=== PATIENT | female | born 1970 | race Caucasian/White ===

== ENCOUNTER 2023-04-03 14:12 | Outpatient (OUT) | payer MEDICARE, OTHER, SELFPAY ==
--- NOTE | 2023-04-03 | US_ITS ---
The [address] [address] Patient Name: RASHID BOOTH MRN: [id number] date: 1970 Sex: F Assigned Patient Location: US Current Patient Location: US Accession/Order Number: [id number] Exam Date: 04/03/2023 14:35 Report Date: 04/03/2023 22:44 At the request of: MAUREEN MITCHELL Procedure: US venous doppler LE LT EXAMINATION: US venous doppler LE LT HISTORY: Left Leg Swelling COMPARISON: No relevant comparison available. FINDINGS: REGION: Left lower extremity THROMBI: None. COMPRESSIBILITY: Normal compressibility. FLOW: Normal waveform and antegrade flow between 5 and 20 cm/s. OTHER: None. US/US venous doppler LE LT IMPRESSION: 1. No deep vein thrombus within the left lower extremity. Electronically authenticated by: ALESIA GUERRA Date: 04/03/2023 22:44
--- NOTE | 2023-04-03 14:29 | CT_ITS ---
[address] [address] Patient Name: ARSHID BOOTH MRN: [id number] date: 1970 Sex: F Assigned Patient Location: US Current Patient Location: US Accession/Order Number: [id number] Exam Date: 04/03/2023 15:30 Report Date: 04/03/2023 16:21 At the request of: MAUREEN MITCHELL Procedure: CT angio chest CT angio chest, 04/03/2023 12:30 PM PST INDICATION: Acute Dyspnea R06.00, Left Leg Swelling M79.89 COMPARISON: None. TECHNIQUE: Iodinated contrast was administered intravenously by rapid injection, with further multislice axial sections acquired in the pulmonary arterial phase from the thoracic inlet to the upper abdomen. Coronal maximal intensity projection images were created for comprehensive analysis and diagnosis of the regional circulation. Dose reduction techniques were achieved by using automated exposure control and/or adjustment of mA and/or kV according to patient size and/or use of iterative reconstruction technique. FINDINGS: Lungs/Pleura: No visible pulmonary disease or effusion. Vasculature: No visible pulmonary arterial thrombus or attenuation. Peyton: No mass or adenopathy. Mediastinum: No mass or adenopathy. Cardiac: Normal. No enlargement, pericardial thickening, or significant calcification. Aorta: Normal. No aneurysm or dissection. Chest Wall: No mass or axillary adenopathy Limited Abd: Hepatic steatosis. Bones: Normal. No bony lesion or fracture. Other: Negative. CT/CT angio chest IMPRESSION: Hepatic steatosis. No acute intrathoracic abnormality is identified. No evidence for pulmonary embolism. Electronically authenticated by: Reggie CRABTREE Date: 04/03/2023 16:21
== END 2023-04-03 14:13 | disposition home or self-care (01) ==
LOC: US 14:19
PROVIDERS: PCP Family Medicine; Visit Provider Family Medicine
DX: M79.89 Other specified soft tissue disorders (principal); R06.00 Dyspnea, unspecified; K76.0 Fatty (change of) liver, not elsewhere classified
CPT/HCPCS: 71275; 93971; Q9967

== ENCOUNTER 2023-09-03 12:00 | Emergency (ER) | payer MEDICARE, OTHER, SELFPAY ==
[2023-09-03] VITALS (27 sets, daily range): BP systolic 109–133; BP diastolic 85–95; PULSE 101–119; TEMP 36.9; O2SAT 87–99; BMI 29.8
--- NOTE | 2023-09-03 12:52 | ECG_ITS ---
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
--- NOTE | 2023-09-03 13:05 | CT_ITS ---
The [address] [address] Patient Name: RASHID BOOTH MRN: [id number] date: 1970 Sex: F Assigned Patient Location: ER Current Patient Location: ED.MAIN Accession/Order Number: [id number] Exam Date: 09/03/2023 13:50 Report Date: 09/03/2023 14:23 At the request of: JOSIAH MONZON Procedure: CT angio chest EXAM: CT angio chest HISTORY: rule out PE, left rib pain COMPARISON: CT chest 04/03/2023. TECHNIQUE: Following intravenous administration of 100 cc of Visipaque 270, axial soft tissue and lung windows of the chest were performed with coronal and sagittal reformats. 3-D MIPS reformats were created and reviewed. CT dose reduction technique was used including Automated Exposure Control. Findings: The heart is not significantly enlarged. No pericardial effusion. The thoracic aorta is normal caliber. There is adequate opacification of the pulmonary arteries. No evidence of pulmonary embolism. The central airways are patent. No pneumothorax. No pleural effusion. No focal consolidation. Minimal bilateral dependent atelectasis. No enlarged mediastinal, hilar, axillary or supraclavicular lymph nodes. Fatty infiltration of the liver. Partially visualized gallbladder is dilated. Postsurgical changes consistent with gastric bypass. No aggressive sclerotic or lytic osseous lesions. Impression 1. No pulmonary embolism. 2. Fatty liver. 3. Partially visualized dilated gallbladder. If there is clinical concern for an acute gallbladder abnormality, suggest right upper quadrant ultrasound for further evaluation. Electronically authenticated by: DARLENE SANCHES Date: 09/03/2023 14:23
[2023-09-03 13:06] LABS: Basophils Percent Auto 0.4 % (0.2-2.0); Eosinophils Percent Auto 0.4 % (0.9-7.0); Hemoglobin 12.3 g/dL (12.0-16.0); Immature Granulocytes Abs Auto 0.04 10^3/uL (0.00-0.03); Immature Granulocytes Pct Auto 0.4 % (0.0-0.5); Lymphocytes Absolute Auto 1.7 10^3/uL (1.2-3.8); Lymphocytes Percent Auto 17.4 % (20.5-60.0); Mean Corpuscular HGB Conc 34.2 g/dL (29.9-35.2); Mean Corpuscular Hemoglobin 36.4 pg (26.7-34.0); Mean Corpuscular Volume 106.5 fL (81.0-99.0); Mean Platelet Volume 9.8 fL (9.5-13.5); Monocytes Absolute Auto 0.8 10^3/uL (0.3-0.8); Neutrophils Absolute Auto 7.3 10^3/uL (1.4-6.5); Neutrophils Percent Auto 73.4 % (43.0-75.0); Platelet Count 312 10^3/uL (150-450); Red Blood Count 3.38 10^6/uL (4.20-5.40); Red Cell Distribution Width 16.8 % (11.0-15.0); White Blood Count 9.9 10^3/uL (4.0-11.0)
--- NOTE | 2023-09-03 13:07 | ED_ITS ---
HPI HPI - General Adult General Chief complaint: Fall Stated complaint: FALL Time Seen by Provider: 09/03/23 12:52 Source: patient Mode of arrival: walk-in Limitations: no limitations History of Present Illness HPI narrative: Patient is a 52-year-old female who is presenting to the Emergency Room after a fall earlier this morning. Patient has femoral, hitting the left side of her. Patient is a hard object at home. Patient is at bedside. Patient is here because of left rib pain. Patient looks significantly older than stated age. 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 Patient did not hit her head. No blood thinners. No headache or neck pain. She has left lower anterior rib pain. Patient was slightly hypoxic when she arrived in the mid 80s. Patient takes Large amount of pain medication and Xanax daily to help with chronic pain. Patient has chronic lower back pain and left foot pain. Patient did have surgeries in the past to help make her chronic pain better, but actually made her pain worse.Patient is in chronic pain management. Patient is very pleasant. at bedside. Patient is also getting set up with hospice care on September 18 as well secondary to inability to function at home. Patient is in bed a lot of time secondary to her chronic pain. No abdominal pain, nausea, vomiting, or any other acute complaints. . Patient says that she took one of her pain pills one hour prior to my initial HPI, physical exam and placing orders on the patient. All systems are negative except as noted/marked. All systems reviewed and otherwise negative. Nurses note and vital signs reviewed and patient is Hypoxic in the mid 80s on room air initially. General: The patient appears Significantly older than stated age, mild distress secondary to pain. Patient is resting uncomfortably on cart. Patient is not toxic, lethargic, or listless Skin: Warm, dry, no pallor noted. There is no rash noted. No petechiae, purpura. Patient has chronic skin changes to her lower back from chronic ICU's, no acute signs of infection, no acute 1st or second-degree burn. Head: Normocephalic, atraumatic Eye: Normal conjunctiva, no drainage, EOMI. PERRL Ears, Nose, Mouth, and Throat: oral mucosa is moist. Nares patent. Mouth without vesicles. Cardiovascular: Regular Rate and Rhythm, no murmur, gallop, rub. Patient has moderate tenderness to palpation to left lower anterior and left lower anterior/lateral chest wall, no ecchymosis noted. No crepitus. Respiratory: Patient is in no distress, no accessory muscle use, lungs are clear to auscultation, no wheezing, rales or rhonchi. Equal breath sounds bilateral. Back: non-tender, no CVA tenderness bilaterally to percussion. No CT LS midline pain GI: Soft, no tenderness to palpation, no masses appreciated. No rebound, guarding, or rigidity noted. No distention Musculoskeletal: Patient has full range of motion of all of the extremities, no motor, sensory, or focal neurological deficits Neurological: A&O x4, normal speech Psychiatric: Cooperative Related Data Home Medications ?Medication ?Instructions ?Recorded ?Confirmed alprazolam 0.5 mg tablet 0.5 mg PO Q6H 09/03/23 09/03/23 amitriptyline 100 mg tablet 100 mg PO .hs 09/03/23 09/03/23 atenolol 100 mg tablet 100 mg PO DAILY 09/03/23 09/03/23 cholecalciferol (vitamin D3) 1,250 50,000 unit PO .COMPLEX 09/03/23 09/03/23 mcg (50,000 unit) capsule eletriptan 40 mg tablet 40 mg PO PRN migraine headache 09/03/23 oxycodone 30 mg tablet 30 mg PO Q4H 09/03/23 09/03/23 pregabalin 200 mg capsule 200 mg PO TID 09/03/23 09/03/23 sertraline 100 mg tablet 200 mg PO DAILY 09/03/23 09/03/23 Allergies Allergy/AdvReac Type Severity Reaction Status Date / Time NSAIDS (Non-Steroidal Allergy Intermediate Verified 09/03/23 12:17 Anti-Inflamma Opioid HPI Opioid Management Most Recent Opioid Data: No Data to Display Exam Constitutional Vital Signs, click to edit/add: Last Vital Signs Temp 98.5 F 09/03/23 12:23 Pulse 101 H 09/03/23 15:50 Resp 15 09/03/23 12:23 BP 130/90 09/03/23 15:30 Pulse Ox 96 09/03/23 15:50 O2 Del Method Nasal Cannula 09/03/23 14:42 O2 Flow Rate 2 09/03/23 14:42 Course Vital Signs Vital signs: Vital Signs Pulse Rate 117 H 09/03/23 12:14 Blood Pressure 129/92 H 09/03/23 12:14 Pulse Oximetry 94 L 09/03/23 12:14 Temperature 98.5 F 09/03/23 12:23 Pulse Rate 101 H 09/03/23 15:50 Respiratory Rate 15 09/03/23 12:23 Blood Pressure 130/90 09/03/23 15:30 Pulse Oximetry 96 09/03/23 15:50 Oxygen Delivery Method Nasal Cannula 09/03/23 14:42 Oxygen Delivery Flow Rate 2 09/03/23 14:42 Medical Decision Making MDM Narrative Medical decision making narrative: Patient had a CTA of her chest secondary to not moving around much at home a chronic baseline, concern for PE. Patient has no obvious signs of rib fracture, pulmonary contusion, or pulmonary embolism. Patient /pain pillTold me sHe took one of her pain medications approximately one hour prior to arrival, she initially told the nurse Brian MORENO she took her last dose of pain medication at 6:30 AM.. Patient told me that she took her last pain pill one hour prior to my HPI physical exam ordered. Please see Nayeli social services technician consultation note. She is very instrumental in helping the patient and family. Patient will have a positive care consultation on September 11. Dav is also helping arrange home health care for the patient as well. Patient's is very active, physically fit, and works, and cannot be home with the patient often. Patient and eventually patient's mother was at bedside as well. They're very thankful for the help from Nayeli and myself. Patient has pain medication and Xanax at home to use to help with her symptoms. Patient was given OPEP. Patient felt better after 1 L of IV fluids as well. Patient has education on ice. Patient understands not to use ice over time since she does not have chronic kemp to her left lower anterior chest like she does her lower lumbar spine. Lab Data Labs: Lab Results 09/03/23 Range/Units 12:34 WBC 9.9 (4.0-11.0) 10^3/uL RBC 3.38 L (4.20-5.40) 10^6/uL Hgb 12.3 (12.0-16.0) g/dL Hct 36.0 (36.0-48.0) % MCV 106.5 H (81.0-99.0) fL MCH 36.4 H (26.7-34.0) pg MCHC 34.2 (29.9-35.2) g/dL RDW 16.8 H (11.0-15.0) % Plt Count 312 (150-450) 10^3/uL MPV 9.8 (9.5-13.5) fL Neut % (Auto) 73.4 (43.0-75.0) % Lymph % (Auto) 17.4 L (20.5-60.0) % [place] % (Auto) 8.0 (1.7-12.0) % Eos % (Auto) 0.4 L (0.9-7.0) % Baso % (Auto) 0.4 (0.2-2.0) % Neut # (Auto) 7.3 H (1.4-6.5) 10^3/uL Lymph # (Auto) 1.7 (1.2-3.8) 10^3/uL [place] # (Auto) 0.8 (0.3-0.8) 10^3/uL Eos # (Auto) 0.0 (0.0-0.7) 10^3/uL Baso # (Auto) 0.0 (0.0-0.1) 10^3/uL Abs Immat Gran (auto) 0.04 H (0.00-0.03) 10^3/uL Imm/Tot Granulo (auto) 0.4 (0.0-0.5) % Sodium 137 (136-145) mmol/L Potassium 3.2 L (3.5-5.1) mmol/L Chloride 98 (98-107) mmol/L Carbon Dioxide 23.8 (21.0-32.0) mmol/L Anion Gap 18.4 BUN 2.0 L (7.0-18.0) mg/dL Creatinine 1.80 H (0.55-1.02) mg/dL Est GFR ( Amer) 36 L (>=60) Est GFR (Non-Af Amer) 29 L (>=60) BUN/Creatinine Ratio 1.1 Glucose 103 (74-106) mg/dL Calcium 9.3 (8.5-10.1) mg/dL Troponin I High Sens 19.5 (4.0-51.3) pg/mL Discharge Plan Discharge Stand Alone Forms: Portal Instructions Chief Complaint: Fall Clinical Impression: Rib pain on left side, Chronic pain, Fall, Dehydration Patient Disposition: Home, Self-Care Time of Disposition Decision: 15:55 Condition: Fair Prescriptions / Home Meds: No Action alprazolam 0.5 mg tablet 0.5 mg PO Q6H amitriptyline 100 mg tablet 100 mg PO .hs atenolol 100 mg tablet 100 mg PO DAILY cholecalciferol (vitamin D3) 1,250 mcg (50,000 unit) capsule 50,000 unit PO .COMPLEX Rx Instructions: 50,000 units orally twice a week; eletriptan 40 mg tablet 40 mg PO PRN (Reason: migraine headache) oxycodone 30 mg tablet 30 mg PO Q4H pregabalin 200 mg capsule 200 mg PO TID sertraline 100 mg tablet 200 mg PO DAILY Print Language: Telugu Instructions: How to Use an Incentive Spirometer (ED), Dehydration (ED), Chronic Pain (ED), Fall Prevention (ED), Rib Contusion (ED) Additional Instructions: Use ice 20 minutes on, 20 minutes off. You now have a palliative health care appointment on September 11 with Emmett duran, they will discuss the differences between palliative care and hospice. Home health care will be set up at home as well to help with care at home. Follow-up with PCP for any additional care. Referrals: Kymberly Gilmore MD [Primary Care Provider] - 1 week Discharge Date/Time: 09/03/23 16:23
[2023-09-03 13:33] LABS: Chloride 98 mmol/L (98-107); Potassium 3.2 mmol/L (3.5-5.1); Sodium 137 mmol/L (136-145)
[2023-09-03 13:34] LABS: Anion Gap 18.4; BUN Creatinine Ratio 1.1; Calcium 9.3 mg/dL (8.5-10.1); Carbon Dioxide 23.8 mmol/L (21.0-32.0); Estimated GFR (African America 36 (>=60); Estimated GFR (Non-African Ame 29 (>=60); Glucose 103 mg/dL (74-106); Troponin I High Sensitivity 19.5 pg/mL (4.0-51.3)
--- NOTE | 2023-09-03 13:54 | SWNOTE1 ---
SW received call to see pt in regards to Hospice. SW spoke to nurse and Dr. Echavarria prior to going in room. SW spoke with pt, pt's , and pt other loved one in room. Pt lives at home with her . She has chronic pain and her PCP, Dr. Gilmore, was getting her set up with palliative care? Possible apt 09/18. CEDRICK recommended we start with calling Dr. Gilmore's office to check on this. Pt and family in agreement. CEDRICK called and spoke with Aaliyah at Dr. Gilmore's office. 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 SW called Meggan Vidal's office and spoke to nurse. She stated she is set to see pt on 09/19/23 for palliative care. SW did ask if they could move appointment up. She looked at schedule and was able to move pt up to 09/12/23 @ 9:30am. Pt and family in agreement with this time. CEDRICK spoke to them about several resources. Palliative care versus hospice, private caregivers, home health, respite stay, assisted living, and custodial facility. SW did let them know for custodial for rehab pt does need 3 day inpt stay for medicare to pay and at this time SW does not think pt has medical need for inpt stay. CEDRICK recommended when at visit for palliative care to speak to them about hospice versus palliative care. CEDRICK let htem know that private caregivers, respite stay, and assisted living is all private pay or medicaid. CEDRICK then spoke to them about at least getting home health set up for in the home. CEDRICK explained that this would be therapy and a nurse to come in a few times of the week and work with her. Pt and family in agreement. CEDRICK recommended since she is in the ED, [facility] does return SW call fairly quickly and we can get it set up prior to her leaving ED. Pt's has heard of [facility] and they are all in agreement. CEDRICK faxed over face sheet, labs, vitals and any nursing notes to [facility].
--- NOTE | 2023-09-03 14:31 | SWNOTE1 ---
CEDRICK called [facility] and spoke to Cheri, they are running benefits now and someone should be reaching out shortly.
--- NOTE | 2023-09-03 14:57 | SWNOTE1 ---
[facility] is able to accept. CEDRICK provided pt and family with [facility] phone number, caregiver list, and hospice pamphlets. SW updated nurse and doctor.
[2023-09-03] MEDS: 0.9 % SODIUM CHLORIDE 1,000 ML 1000 ML IV (15:07)
== END 2023-09-03 16:23 | disposition home or self-care (01) ==
PROVIDERS: Emergency Provider Emergency Medicine; PCP Family Medicine
DX: R07.81 Pleurodynia (principal); G89.29 Other chronic pain; E86.0 Dehydration; Z91.81 History of falling; Z79.899 Other long term (current) drug therapy
CPT/HCPCS: 36415; 71275; 80048; 84484; 85025; 93005; 94667; 96360; 99285; Q9966

== ENCOUNTER 2023-11-10 09:17 | Emergency (ER) | payer MEDICARE, OTHER, SELFPAY ==
[2023-11-10] VITALS (22 sets, daily range): BP systolic 112–161; BP diastolic 80–111; PULSE 101–125; TEMP 36.5; O2SAT 86–100; BMI 26.6
--- NOTE | 2023-11-10 09:43 | ED.GENADUL1 ---
HPI HPI - General Adult General Chief complaint: GI Bleed Stated complaint: GI ISSUES/SOB,WEAKNESS Time Seen by Provider: 11/10/23 09:43 Source: patient and family Mode of arrival: Wheelchair Limitations: no limitations History of Present Illness HPI narrative: This patient is here complaining some nausea and black tarry stool. She has had previous GI bleeds previously when she bled down to hemoglobin 5.6. She says she has not had endoscopy in the last 5 or 6 years. She has had previous gastric bypass surgery. She is not taking any aspirin products, blood thinners or NSAIDs. She said her previous colonoscopies have been normal but she said 1 upper endoscopy showed small ulcers. She feels weak. She has had some falling. She is under the care of a local orthopedic surgeon for broken feet. She does not have any chest pain or shortness of breath but she has extreme fatigability at this time. A EKG on arrival showed sinus tachycardia with nonspecific T wave abnormality. There was a fair amount of artifact. Related Data Home Medications ?Medication ?Instructions ?Recorded ?Confirmed alprazolam 0.5 mg tablet 0.5 mg PO .q 4 hour 09/03/23 11/10/23 amitriptyline 100 mg tablet 100 mg PO .hs 09/03/23 11/10/23 atenolol 100 mg tablet 100 mg PO DAILY 09/03/23 11/10/23 cholecalciferol (vitamin D3) 1,250 50,000 unit PO .COMPLEX 09/03/23 11/10/23 mcg (50,000 unit) capsule eletriptan 40 mg tablet 40 mg PO Q2H PRN migraine headache 09/03/23 11/10/23 oxycodone 30 mg tablet 30 mg PO Q4H 09/03/23 11/10/23 pregabalin 200 mg capsule 200 mg PO TID 09/03/23 11/10/23 sertraline 100 mg tablet 200 mg PO DAILY 09/03/23 11/10/23 Allergies Allergy/AdvReac Type Severity Reaction Status Date / Time NSAIDS (Non-Steroidal Allergy Intermediate Verified 11/10/23 09:36 Anti-Inflamma Opioid HPI Opioid Management Most Recent Opioid Data: No Data to Display [facility] Medical History (Updated 11/10/23 @ 13:04 by Chong Johnson MD) GI bleed ?K92.2 - Gastrointestinal hemorrhage, unspecified (ICD-10) Surgical History (Updated 11/10/23 @ 09:59 by Gabrielle Donaldson RN) Status post abdominoplasty ?Z98.890 - Other specified postprocedural states (ICD-10) Status post abdominoplasty ?Z98.890 - Other specified postprocedural states (ICD-10) H/O hysterectomy with oophorectomy H/O: hysterectomy ?Z90.710 - Acquired absence of both cervix and uterus (ICD-10) Gastric bypass status for obesity ?Z98.84 - Bariatric surgery status (ICD-10) Exam Narrative Exam Narrative: Armida is well-known to myself from previous work here in this department. She appears somewhat pale. She has a good sense of humor she does not appear toxic or critically ill. Vital signs are noted she does have mild tachycardia. She is afebrile and there is no hypoxemia on pulse oximetry. She is awake alert cognition mentation short and long-term memory are excellent. Examination her lungs show her lungs to be clear. Heart sounds are normal other than tachycardia. Do not hear murmur. Abdomen she has no abdominal discomfort. We did a rectal examination there is no external hemorrhoids, no bleeding and mucosal secretions were clear. It was sent for Hemoccult. She does have some ankle swelling bilaterally but no evidence of phlebitis or DVT of the lower legs. Neurological cognition and mentation are normal. Constitutional Vital Signs, click to edit/add: Last Vital Signs Temp 97.7 F 11/10/23 09:29 Pulse 116 H 11/10/23 09:29 Resp 20 11/10/23 09:29 BP 112/80 11/10/23 09:29 Pulse Ox 95 11/10/23 09:29 O2 Del Method Room Air 11/10/23 09:29 Course Vital Signs Vital signs: Vital Signs Temperature 97.7 F 11/10/23 09:29 Pulse Rate 116 H 11/10/23 09:29 Respiratory Rate 20 11/10/23 09:29 Blood Pressure 112/80 11/10/23 09:29 Pulse Oximetry 95 11/10/23 09:29 Oxygen Delivery Method Room Air 11/10/23 09:29 Temperature 97.7 F 11/10/23 09:29 Pulse Rate 116 H 11/10/23 09:29 Respiratory Rate 20 11/10/23 09:29 Blood Pressure 112/80 11/10/23 09:29 Pulse Oximetry 95 11/10/23 09:29 Oxygen Delivery Method Room Air 11/10/23 09:29 Medical Decision Making MDM Narrative Medical decision making narrative: Patient's laboratory testing shows mild increase in alkaline phosphatase and she is concerned about having abdominal cancer. I cannot see that she has had recent CT imaging recently. Her stool occult blood is negative. Her hemoglobin is stable. Potassium is low 3.0. Her CT scan was read and does not show any acute findings but it is consistent with there is some gastroenteritis. Other findings were chronic and unchanged and nothing suggestive of any type of metastatic or primary malignancy. This information was discussed in detail with her and her son. At this time we will discharge her she was given a liter of fluids and her heart rate slowed nicely. She will be placed on potassium she is to follow-up with primary care doctor Discharge Plan Discharge Stand Alone Forms: Portal Instructions Chief Complaint: GI Bleed Clinical Impression: Acute hypokalemia, Volume depletion Patient Disposition: Home, Self-Care Time of Disposition Decision: 13:04 Prescriptions / Home Meds: No Action alprazolam 0.5 mg tablet 0.5 mg PO .q 4 hour amitriptyline 100 mg tablet 100 mg PO .hs atenolol 100 mg tablet 100 mg PO DAILY Hold Instructions: not taking cholecalciferol (vitamin D3) 1,250 mcg (50,000 unit) capsule 50,000 unit PO .COMPLEX Rx Instructions: 50,000 units orally twice a week; eletriptan 40 mg tablet 40 mg PO Q2H PRN (Reason: migraine headache) oxycodone 30 mg tablet 30 mg PO Q4H pregabalin 200 mg capsule 200 mg PO TID sertraline 100 mg tablet 200 mg PO DAILY Print Language: Nauruan Additional Instructions: Take potassium tablets and follow-up with your primary care doctor for repeat lab as needed Referrals: Kymberly Gilmore MD [Primary Care Provider] - 1 week
--- NOTE | 2023-11-10 09:55 | ECG_ITS ---
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
[2023-11-10 10:05] LABS: Basophils Percent Auto 0.5 % (0.2-2.0); Eosinophils Percent Auto 0.1 % (0.9-7.0); Hematocrit 38.3 % (36.0-48.0); Hemoglobin 13.2 g/dL (12.0-16.0); Immature Granulocytes Abs Auto 0.03 10^3/uL (0.00-0.03); Immature Granulocytes Pct Auto 0.4 % (0.0-0.5); Lymphocytes Absolute Auto 1.3 10^3/uL (1.2-3.8); Lymphocytes Percent Auto 17.4 % (20.5-60.0); Mean Corpuscular HGB Conc 34.5 g/dL (29.9-35.2); Mean Corpuscular Hemoglobin 38.2 pg (26.7-34.0); Mean Corpuscular Volume 110.7 fL (81.0-99.0); Mean Platelet Volume 9.8 fL (9.5-13.5); Monocytes Absolute Auto 0.5 10^3/uL (0.3-0.8); Monocytes Percent Auto 6.7 % (1.7-12.0); Neutrophils Absolute Auto 5.5 10^3/uL (1.4-6.5); Neutrophils Percent Auto 74.9 % (43.0-75.0); Platelet Count 305 10^3/uL (150-450); Red Blood Count 3.46 10^6/uL (4.20-5.40); Red Cell Distribution Width 12.7 % (11.0-15.0); White Blood Count 7.3 10^3/uL (4.0-11.0)
--- NOTE | 2023-11-10 10:05 | XR_ITS ---
The [address] [address] Patient Name: RASHID BOOTH MRN: [id number] date: 1970 Sex: F Assigned Patient Location: ER Current Patient Location: ER Accession/Order Number: [id number] Exam Date: 11/10/2023 10:00 Report Date: 11/10/2023 10:26 At the request of: RILEY GUTIERREZ Procedure: XR chest 1V EXAMINATION: XR chest 1V HISTORY: Chest pain , weakness, tachycardia, gastrointestinal bleeding COMPARISON: No relevant comparison available. FINDINGS: LUNGS: No significant pulmonary parenchymal abnormalities. VASCULATURE: No increased pulmonary vasculature. PLEURA: No pneumothorax, effusion, or pleural thickening. CARDIAC: No cardiomegaly or cardiac silhouette abnormality. MEDIASTINUM: No visible mass or adenopathy. BONES: No fracture or visible bone lesion. OTHER: Negative. XR/XR chest 1V IMPRESSION: 1. No acute or suspicious cardiopulmonary process. Electronically authenticated by: ALESIA GUERRA Date: 11/10/2023 10:26
[2023-11-10 10:21] LABS: Prothrombin Time 9.7 sec (9.0-11.6)
[2023-11-10 10:23] LABS: Anion Gap 13.3; Carbon Dioxide 25.7 mmol/L (21.0-32.0); Chloride 97 mmol/L (98-107); Glucose 113 mg/dL (74-106); Sodium 133 mmol/L (136-145)
[2023-11-10 10:24] LABS: Alanine Aminotransferase 23 U/L (14-59); Albumin Globulin Ratio 0.8; Alkaline Phosphatase 232 U/L (46-116); Aspartate Amino Transferase 82 U/L (15-37); Bilirubin Total 0.6 mg/dL (0.2-1.0); Calcium 9.3 mg/dL (8.5-10.1); Estimated GFR (African America >60 (>=60); Estimated GFR (Non-African Ame 58 (>=60); Globulin 3.6 g/dL; INR <0.93; Total Protein 6.6 g/dL (6.4-8.2)
[2023-11-10 10:32] LABS: Troponin I High Sensitivity 11.2 pg/mL (4.0-51.3)
[2023-11-10 10:44] LABS: Internal Control Within Normal Limits; Occult Blood Negative
[2023-11-10] MEDS: POTASSIUM CHLORIDE 10 MEQ ER TABLET 20 MEQ PO (11:16)
[2023-11-10] MEDS: 0.9 % SODIUM CHLORIDE 1,000 ML 1000 ML IV (11:20)
--- NOTE | 2023-11-10 11:48 | CT_ITS ---
The [address] [address] Patient Name: RASHID BOOTH MRN: [id number] date: 1970 Sex: F Assigned Patient Location: ER Current Patient Location: ER Accession/Order Number: [id number] Exam Date: 11/10/2023 11:38 Report Date: 11/10/2023 12:46 At the request of: RILEY GUTIERREZ Procedure: CT abdomen pelvis w con EXAM: CT abdomen pelvis w con HISTORY: Abdominal pain/elevated alk phos COMPARISON: CT abdomen and CT pelvis studies dated 11/03/2021 TECHNIQUE: CT abdomen and CT pelvis studies were performed with the use of intravenous contrast. Multiple axial images were obtained. Reformatted coronal and sagittal images were obtained and reviewed. FINDINGS: Abdomen: Visualized lower lung call appear grossly unremarkable. Healing or healed undisplaced rib fractures are noted on the left, correlate likely. Views of the liver demonstrate 2 areas of decreased attenuation in the medial segment of the left lobe most likely representing cysts and/or hemangiomas measuring up to 1.7 cm. Other possibilities would be less likely. Mild fatty infiltration of the liver. No obvious splenic mass. Likely a gallstone in the gallbladder mildly increased in size since prior exam, no obvious gallbladder wall thickening or pericholecystic fluid. Gallbladder is moderately distended without not significantly changed prior exam. Pancreas appears grossly unremarkable. Mild soft tissue prominence of the left adrenal gland similar to prior study most like representing an adenoma measuring approximately 1 cm. Post gastric bypass changes appear similar to the prior exam. Mild wall thickening of the stomach which is nonspecific, correlate for gastritis. No evidence of gastric obstruction. Mildly dilated fluid-filled small bowel loops which are nonspecific, correlate for mild gastroenteritis. No obvious bowel obstruction. Atherosclerotic calcifications within portions of the abdominal aorta. No evidence of aneurysm. No evidence of adenopathy in the retroperitoneum. No obvious renal mass or obstructive uropathy. Pelvis: Mild to moderately distended bladder without obvious mass or significant wall thickening. Patient status post hysterectomy. No obvious adnexal mass. Perirectal fat planes appear grossly intact. Bowel loops appear grossly unremarkable. Atherosclerotic calcification within portions of the iliofemoral arteries. No evidence of aneurysm. No evidence of adenopathy. The appendix is not definitely visualized, correlate for prior appendectomy. No evidence of appendicitis. Bwas-bb-[id number] degenerative changes in the visualized lower dorsal spine and the lumbar spine with slight convexity of the upper lumbar spine to the left and lower lumbar spine to the right. CT/CT abdomen pelvis w con IMPRESSION: CT abdomen and CT pelvis studies demonstrate findings which can be correlated for mild gastroenteritis as described. No obvious bowel obstruction. Likely cysts and/or hemangiomas in the liver as described. Likely gallstone the gallbladder without wall thickening. Gallbladder is distended however this appears similar to prior study. No obvious cholecystitis suggested. Likely left adrenal gland adenoma similar to the prior study. Electronically authenticated by: CHLOE CLEMENTS Date: 11/10/2023 12:46
== END 2023-11-10 14:00 | disposition home or self-care (01) ==
PROVIDERS: Emergency Provider Emergency Medicine Emergency Medical Services; PCP Family Medicine
DX: E86.9 Volume depletion, unspecified (principal); E87.6 Hypokalemia; Z98.84 Bariatric surgery status
CPT/HCPCS: 36415; 71045; 74177; 80053; 83690; 84484; 85025; 85610; 86850; 86900; 86901; 93005; 96360; 96361; 99285; G0328; Q9967

== ENCOUNTER 2023-12-28 08:42 | Inpatient (IN) | payer OTHER, MEDICARE, SELFPAY ==
[2023-12-28] VITALS (41 sets, daily range): BP systolic 101–133; BP diastolic 58–113; PULSE 90–115; TEMP 36.6–37.2; O2SAT 92–98; BMI 28.2; BMI 28.5
--- NOTE | 2023-12-28 08:45 | XR_ITS ---
The [address] [address] Patient Name: RASHID BOOTH MRN: [id number] date: 1970 Sex: F Assigned Patient Location: ER Current Patient Location: ED.MAIN Accession/Order Number: [id number] Exam Date: 12/28/2023 09:30 Report Date: 12/28/2023 10:20 At the request of: WALE PATEL Procedure: XR chest 1V PROCEDURE: XR chest 1V DATE: 12/28/2023 8:30 AM CDT COMPARISONS: 11/10/2023 CLINICAL INDICATION: 53 years Female sob FINDINGS: The cardiomediastinal silhouette and pulmonary vasculature are within normal limits. The lungs are clear. There is no evidence of pleural effusion or pneumothorax. XR/XR chest 1V IMPRESSION: Chest radiograph is within normal limits. Electronically authenticated by: ALEXSANDER FERRERA Date: 12/28/2023 10:20
--- NOTE | 2023-12-28 08:45 | ECG_ITS ---
The [facility] Test Date: 2023-12-28 Pat Name: RASHID BOOTH Department: Room: 2031 Gender: Female Right Of [address] Supervisor: : 1970 Requested By: MAUREEN MITCHELL Order Number: [id number] Reading MD: DAVID PORTER Measurements Intervals [place] Rate: 110 P: 51 SC: 158 QRS: 57 QRSD: 84 T: 150 QT: 310 QTc: 375 Interpretive Statements 1120 Sinus tachycardia [address] depression 4564 Twave abnormality, possible lateral ischemia 5211 Minimal voltage criteria for LVH, may be normal variant 9150 abnormal ECG Electronically Signed On 12-28-2023 18:30:09 EDT by DAVID PORTER
--- NOTE | 2023-12-28 08:46 | CT_ITS ---
The [address] [address] Patient Name: RASHID BOOTH MRN: [id number] date: 1970 Sex: F Assigned Patient Location: ER Current Patient Location: ER Accession/Order Number: [id number] Exam Date: 12/28/2023 09:30 Report Date: 12/28/2023 10:40 At the request of: WALE PATEL Procedure: CT abdomen pelvis w con PROCEDURE: CT abdomen pelvis w con, 12/28/2023 9:30 AM EDT CLINICAL INDICATIONS: Abdominal pain COMPARISON: CT abdomen and pelvis 11/10/2023 TECHNIQUE: Thin section axial images obtained through the abdomen and pelvis after administration of intravenous contrast. Helical acquisition technique was utilized with multiplanar reformatted images obtained. Dose reduction techniques were achieved by using automated exposure control and/or adjustment of mA and/or kV according to patient size and/or use of iterative reconstruction technique. FINDINGS: Acute lower lung pathology is not demonstrated. 1.0 cm gallbladder polyp or calculus is present near the fundus similar to previous exam. Gallbladder is distended, 5 cm transversely with borderline wall thickening. Common bile duct dilated at 0.9 cm to the ampullary level. Mild central intrahepatic bile duct dilatation seen. Similar changes are present on prior exam. Normal right adrenal gland. Stable 1.4 cm left adrenal nodule. Normal spleen. Mild calcified atheromatous plaque, normal size aorta and iliac vasculature is seen. Inferior vena cava is somewhat decompressed. Mild lobular renal contour. Focal abnormality, nephrolithiasis, urinary tract calculus, obstructive uropathy are not cysts noted. There is been a Linsey-en-Y gastric bypass. There is apparent wall thickening of the body and antrum of the bypassed stomach. There is fluid within. Atrophic pancreas is seen. CT PELVIS: Urinary bladder is decompressed. Uterus is surgically absent. Vaginal cuff region is symmetric. Adnexal pathology is not seen. Normal ovarian tissue is not seen with confidence. A 3.5 cm the sigmoid diverticulum is seen. There is liquid stool within nondistended colon. Colonic redundancy is present. Bowel pattern is likely nonobstructive. Normal appendix is not seen. Secondary signs of acute appendicitis are not demonstrated. No pathologic lymphadenopathy. Free fluid, abscess, ectopic gas are not demonstrated. Stable compression deformity anterior T11 vertebral segment is seen. Dextroconvex lumbar scoliosis is seen. Acute osseous pathology is not demonstrated. Lumbosacral degenerative changes noted. CT/CT abdomen pelvis w con IMPRESSION: 1. Gallbladder distention with 1.0 cm gallbladder fundal gallstone or gallbladder polyp similar to previous exam. Common bile duct dilated up to 0.9 cm with intrahepatic bile duct prominence. Similar to previous exam. Magnetic resonance cholangiopancreatography may be helpful in further assessment. 2. Stable left adrenal gland, adenoma favored 3. Linsey-en-Y gastric bypass. There is fluid in the bypassed stomach. There is apparent thickening of the body and antrum of the stomach. Accentuated by incomplete distention. Gastritis, peptic ulcer disease considered in the appropriate clinical setting. No ectopic gas or significant inflammatory changes evident. 4. Sigmoid diverticula, liquid stool within nondistended redundant colon. Ileus, diarrheal illness, nonspecific enterocolitis are considered. Wall thickening, inflammatory change or obstructive pattern are not suspected. 5. Remote T11 vertebral fracture Electronically authenticated by: ETHAN BAUTISTA Date: 12/28/2023 10:40
[2023-12-28] MEDS: 0.9 % SODIUM CHLORIDE 1,000 ML 1000 ML IV ×2 (08:59→10:23)
--- NOTE | 2023-12-28 09:01 | ED_ITS ---
HPI HPI - General Adult General Chief complaint: Abdominal Pain Stated complaint: BLOOD IN STOOL, GENERAL WEAKNESS Time Seen by Provider: 12/28/23 08:45 Source: patient and family Mode of arrival: Carry Limitations: no limitations History of Present Illness HPI narrative: Patient presents to ED for GI bleed. She has a history of gastric bypass surgery and she also has a history of GI bleeding. She has had to be admitted in the past for her GI bleeding. She had upper and lower scopes in the past. She said she has been doing okay recently but last night started to get some abdominal pain and was passing dark stool but also bright red per the . She came into the ED and we were called out emergently to the triage counter And when we arrived out there she was in a wheelchair slumped backwards, pale and barely responsive. We got her back to room 5 immediately and once we laid her flat she was becoming more responsive. Blood pressure initially was 102 systolic. Heart rate was tachycardic 110s to 120. She did have pulses and was breathing and becoming more responsive once we laid her back. She does complain of some epigastric abdominal pain. She also reports a history of an abdominal aortic aneurysm that is about 4 cm in size. She denies any lower abdominal pain or back pain. At this time she is alert and oriented x 3. Labs and type and screen ordered immediately. Patient states she is O-. 2 IVs placed and she is on the monitor. Related Data Home Medications ?Medication ?Instructions ?Recorded ?Confirmed pregabalin 200 mg capsule 200 mg PO TID 09/03/23 12/28/23 sertraline 100 mg tablet 200 mg PO DAILY 09/03/23 12/28/23 amitriptyline 75 mg tablet 75 mg PO .qhs 12/28/23 12/28/23 Allergies Allergy/AdvReac Type Severity Reaction Status Date / Time NSAIDS (Non-Steroidal Allergy Intermediate Verified 11/10/23 09:36 Anti-Inflamma Opioid HPI Opioid Management Most Recent Opioid Data: Last ED Pain Assessment 12/28/23 09:04 Review of Systems ROS Status of ROS 10 or more systems reviewed and unremark able except as noted in history and below [facility] Medical History (Updated 12/28/23 @ 12:13 by Damaris Coffey DO) Peripheral neuropathy ?G62.9 - Polyneuropathy, unspecified (ICD-10) Chronic bilateral back pain ?M54.9 - Dorsalgia, unspecified (ICD-10) ?G89.29 - Other chronic pain (ICD-10) Afib ?I48.91 - Unspecified atrial fibrillation (ICD-10) Aortic aneurysm ?I71.9 - Aortic aneurysm of unspecified site, without rupture (ICD-10) GI bleed ?K92.2 - Gastrointestinal hemorrhage, unspecified (ICD-10) Surgical History (Updated 11/10/23 @ 09:59 by Gabrielle Donaldson RN) Status post abdominoplasty ?Z98.890 - Other specified postprocedural states (ICD-10) Status post abdominoplasty ?Z98.890 - Other specified postprocedural states (ICD-10) H/O hysterectomy with oophorectomy H/O: hysterectomy ?Z90.710 - Acquired absence of both cervix and uterus (ICD-10) Gastric bypass status for obesity ?Z98.84 - Bariatric surgery status (ICD-10) Family History (Updated 12/28/23 @ 11:58 by Armida Serra) Mother Family history of cancer Family history of hypertension Social History (Updated 12/28/23 @ 12:02 by Armida Serra) Within the past year, how often did you have a drink containing alcohol: 2-4 times a month Within the past year, how often did you have six or more drinks on one occasion: never Smoking status: Former smoker Non-prescribed substance use: denies use Previous occupational history: disabled Highest level of school completed/degree received: Master's degree Are you now , , , , never or living with a partner: Little interest or pleasure in doing things: more than half the days Feeling down, depressed, or hopeless: several days Feel stressed/tense/nervous/anxious/difficulty sleeping: rather much Life stressor details: medical condition Exam Narrative Exam Narrative: Time Seen: [] Vital Signs: [Per nurse's notes.] General: Lethargic, pale, decreased responsiveness initially on arrival Skin: Pale, diaphoretic Head: [Normocephalic, atraumatic.] Neck: [Supple, trachea midline.] Eye: [Pupils are equal, round and reactive to light, extraocular movements are intact, normal conjunctiva.] Ears, nose, mouth and throat: oral mucosa Dry Cardiovascular: [Tachycardia Respiratory: [Lungs are clear to auscultation, respirations are non-labored, breath sounds are equal.] Chest wall: [No tenderness, no deformity.] Gastrointestinal: [Soft, Epigastric tenderness, non distended, normal bowel sounds. No gross blood per rectum on rectal exam no hemorrhoids seen no active hemorrhage seen MSK: 5 out of 5 muscle strength x 4 extremities no calf pain or edema Lymphatics: [No lymphadenopathy.] Psychiatric: [Cooperative, appropriate mood & affect.] Neurological: [Alert and oriented to person, place, time, and situation, no focal neurological deficit observed.] Constitutional Vital Signs, click to edit/add: Last Vital Signs Temp 98.2 F 12/28/23 09:00 Pulse 102 H 12/28/23 12:00 Resp 14 12/28/23 12:00 BP 122/83 12/28/23 11:30 Pulse Ox 96 12/28/23 11:30 O2 Del Method Room Air 12/28/23 09:04 Course Vital Signs Vital signs: Vital Signs Pulse Rate 109 H 12/28/23 08:49 Respiratory Rate 28 H 12/28/23 08:49 Blood Pressure 109/58 12/28/23 08:49 Pulse Oximetry 96 12/28/23 08:49 Oxygen Delivery Method Room Air 12/28/23 08:49 Temperature 98.2 F 12/28/23 09:00 Pulse Rate 102 H 12/28/23 12:00 Respiratory Rate 14 12/28/23 12:00 Blood Pressure 122/83 12/28/23 11:30 Pulse Oximetry 96 12/28/23 11:30 Oxygen Delivery Method Room Air 12/28/23 09:04 Medical Decision Making MDM Narrative Medical decision making narrative: Patient's labs show an elevated lactate. Patient is possibly septic. She was given IV fluids and broad-spectrum IV antibiotics. Blood cultures were drawn and initially. Patient also has a low sodium at 124. No acute surgical findings on CT abdomen pelvis. She does have a large gallstone and dilated common bile duct which she has had in the past and this is not new. As of perforation on her scan. I called and spoke to Dr. Zapien who will admit the patient on telemetry for further management and monitoring of her hemoglobin. Patient and family are comfortable care plan for admission. Differential Diagnosis Differential Diagnosis: AlertGI bleed, sepsis, related abnormality, dehydration Lab Data Lab results reviewed: Yes I reviewed the patient's lab results Labs: Lab Results 12/28/23 12/28/23 12/28/23 Range/Units 08:50 08:55 11:05 WBC 10.1 (4.0-11.0) 10^3/uL RBC 3.09 L (4.20-5.40) 10^6/uL Hgb 11.0 L (12.0-16.0) g/dL Hct 32.0 L (36.0-48.0) % MCV 103.6 H (81.0-99.0) fL MCH 35.6 H (26.7-34.0) pg MCHC 34.4 (29.9-35.2) g/dL RDW 14.6 (11.0-15.0) % Plt Count 315 (150-450) 10^3/uL MPV 9.8 (9.5-13.5) fL Neut % (Auto) 63.7 (43.0-75.0) % Lymph % (Auto) 28.7 (20.5-60.0) % Russell % (Auto) 6.8 (1.7-12.0) % Eos % (Auto) 0.2 L (0.9-7.0) % Baso % (Auto) 0.3 (0.2-2.0) % Neut # (Auto) 6.4 (1.4-6.5) 10^3/uL Lymph # (Auto) 2.9 (1.2-3.8) 10^3/uL Russell # (Auto) 0.7 (0.3-0.8) 10^3/uL Eos # (Auto) 0.0 (0.0-0.7) 10^3/uL Baso # (Auto) 0.0 (0.0-0.1) 10^3/uL Abs Immat Gran (auto) 0.03 (0.00-0.03) 10^3/uL Imm/Tot Granulo (auto) 0.3 (0.0-0.5) % PT 9.6 (9.0-11.6) sec INR <0.93 Sodium 124 L* (136-145) mmol/L Potassium 4.3 (3.5-5.1) mmol/L Chloride 89 L (98-107) mmol/L Carbon Dioxide 26.6 (21.0-32.0) mmol/L Anion Gap 12.7 BUN 11.0 (7.0-18.0) mg/dL Creatinine 0.79 (0.55-1.02) mg/dL Est GFR ( Amer) >60 (>=60) Est GFR (Non-Af Amer) >60 (>=60) BUN/Creatinine Ratio 13.9 Glucose 109 H (74-106) mg/dL Lactate 5.2 H* 2.1 H (0.4-2.0) mmol/L Calcium 8.7 (8.5-10.1) mg/dL Total Bilirubin 0.5 (0.2-1.0) mg/dL AST 45 H (15-37) U/L ALT 21 (14-59) U/L Alkaline Phosphatase 219 H (46-116) U/L Troponin I High Sens <4.0 L (4.0-51.3) pg/mL Total Protein 5.6 L (6.4-8.2) g/dL Albumin 2.2 L (3.4-5.0) g/dL Globulin 3.4 g/dL Albumin/Globulin Ratio 0.6 Stool Occult Blood Positive A Blood Type O Negative Antibody Screen Negative Imaging Data CT scan - abdomen: Radiologist's impression: ITS Impressions Chest X-Ray 12/28/23 08:45 IMPRESSION: Chest radiograph is within normal limits. Electronically authenticated by: ALEXSANDER FERRERA Date: 12/28/2023 10:20 Abdomen/Pelvis CT 12/28/23 08:46 IMPRESSION: 1. Gallbladder distention with 1.0 cm gallbladder fundal gallstone or gallbladder polyp similar to previous exam. Common bile duct dilated up to 0.9 cm with intrahepatic bile duct prominence. Similar to previous exam. Magnetic resonance cholangiopancreatography may be helpful in further assessment. 2. Stable left adrenal gland, adenoma favored 3. Linsey-en-Y gastric bypass. There is fluid in the bypassed stomach. There is apparent thickening of the body and antrum of the stomach. Accentuated by incomplete distention. Gastritis, peptic ulcer disease considered in the appropriate clinical setting. No ectopic gas or significant inflammatory changes evident. 4. Sigmoid diverticula, liquid stool within nondistended redundant colon. Ileus, diarrheal illness, nonspecific enterocolitis are considered. Wall thickening, inflammatory change or obstructive pattern are not suspected. 5. Remote T11 vertebral fracture Electronically authenticated by: ETHAN BAUTISTA Date: 12/28/2023 10:40 ECG Data Attestation: I personally reviewed and interpreted this ECG as follows: Interpretation: EKG INTERPRETATION Time: []850 Rate: []110 Rhythm: _ []Sinus tachycardia ST segments: _ []No acute ST elevation or depression T waves: _ [] Ectopy: _ [] P wave/MN interval: _ [] QRS interval: _ [] QT interval: _ [] Comparison: _ [] Comparison EKG date: [] Performed by: [self] Critical Care Time Critical Care Time Critical Care Time: Yes Total Critical Care Time: 90 Attestation: Vanessa chavira called, patient was minimally responsive and near syncopal. Rushed back to ED room. Tachycardic hypotensive anemic requiring resuscitation. Discharge Plan Discharge Chief Complaint: Abdominal Pain Clinical Impression: Hyponatremia, Sepsis, Acute GI bleeding Patient Disposition: Admitted As Inpatient Time of Disposition Decision: 12:12 Condition: Fair Discharge Date/Time: 12/28/23 11:40
[2023-12-28 09:21] LABS: Basophils Percent Auto 0.3 % (0.2-2.0); Eosinophils Percent Auto 0.2 % (0.9-7.0); Immature Granulocytes Abs Auto 0.03 10^3/uL (0.00-0.03); Immature Granulocytes Pct Auto 0.3 % (0.0-0.5); Lymphocytes Absolute Auto 2.9 10^3/uL (1.2-3.8); Lymphocytes Percent Auto 28.7 % (20.5-60.0); Mean Corpuscular HGB Conc 34.4 g/dL (29.9-35.2); Mean Corpuscular Hemoglobin 35.6 pg (26.7-34.0); Mean Corpuscular Volume 103.6 fL (81.0-99.0); Mean Platelet Volume 9.8 fL (9.5-13.5); Monocytes Absolute Auto 0.7 10^3/uL (0.3-0.8); Monocytes Percent Auto 6.8 % (1.7-12.0); Neutrophils Absolute Auto 6.4 10^3/uL (1.4-6.5); Neutrophils Percent Auto 63.7 % (43.0-75.0); Platelet Count 315 10^3/uL (150-450); Red Blood Count 3.09 10^6/uL (4.20-5.40); Red Cell Distribution Width 14.6 % (11.0-15.0); White Blood Count 10.1 10^3/uL (4.0-11.0)
[2023-12-28 09:34] LABS: Prothrombin Time 9.6 sec (9.0-11.6)
[2023-12-28 09:36] LABS: INR <0.93
--- OUTSIDE RECORDS SUMMARY | 2023-12-28 09:58 | XMS_ITS ---
Patient Summarization (C-CDA 2.1 CCD) Created on: December 28, 2023 Candy Booth : 1970 Sex: Female Author Organization Sample organization Care Team Providers Care [employer] Associate Name Role Phone KENDALL MOISE Santos Unavailable Unavailable CHONG GUTIERREZ Unavailable Unavailable MAUREEN MITCHELL Unavailable Unavailable JULISA ELKINS Unavailable Unavailable HOMA JAMESON Unavailable Unavailable AVASTHI, NIA Unavailable Unavailable BLEIBEL, WISSAM Unavailable Unavailable MAUREEN MITCHELL Unavailable Unavailable REJI, PATRICK H. Unavailable Unavailable MITCHELLMAUREEN Unavailable Unavailable REJI, PATRICK H. Unavailable Unavailable REJI, PATRICK H. Unavailable Unavailable REJI, PATRICK H. Unavailable Unavailable MAUREEN MITCHELL Unavailable Unavailable MAUREEN MITCHELL Primary Care Physician [phone] MAUREEN MITCHELL Referring Unavailable MAUREEN MITCHELL Primary Care Unavailable NEW PARKINSON Attending Unavailable NEW PARKINSON Admitting Unavailable NILL, DR ALEXANDRA Attending Unavailable NILL, DR ALEXANDRA Admitting Unavailable WEST, DR TUYET Linn Consulting Unavailable MITCHELL, DR MAUREEN Morales Primary Care Unavailable NILL, DR ALEXANDRA Consulting Unavailable REINECK, DR CHONG Valverde Attending Unavailabl e REINECK, DR CHONG Valverde Consulting Unavailabl e REINECK, DR CHONG Valverde Admitting Unavailabl e MITCHELL, DR MAUREEN Morales Primary Care Unavailable MARGARET PARRA Consulting Unavailable MITCHELL, DR MAUREEN Morales Admitting Unavailable MITCHELL, DR MAUREEN Morales Attending Unavailable MITCHELL, DR MAUREEN Morales Consulting Unavailable MITCHELL, DR MAUREEN Morales Primary Care Unavailable MITCHELL, DR MAUREEN Morales Admitting Unavailable MITCHELL, DR MAUREEN Morales Attending Unavailable MITCHELL, DR MAUREEN Morales Consulting Unavailable MITCHELL, DR MAUREEN Morales Primary Care Unavailable MITCHELL, DR MAUREEN Morales Admitting Unavailable MITCHELL, DR MAUREEN Morales Attending Unavailable MITCHELL, DR MAUREEN Morales Consulting Unavailable MITCHELL, DR MAUREEN Morales Primary Care Unavailable NILL, Ibrahima Willis Attending Unavailable Maureen Mitchell Unavailable Otoniel Kelly Unavailable Maureen Mitchell MD Primary Care Provider Maureen Mitchell MD Primary Care Provider Quan Hunter MD Unavailable [phone] QUAN HUNTER Attending Unavailable MAUREEN MITCHELL Primary Care Unavailable QUAN HUNTER Attending Unavailable MAUREEN MITCHELL Primary Care Unavailable DOROTHY SANTORO Attending Unavailable DOROTHY SANTORO Referring Unavailable DOROTHY SANTORO Referring Unavailable DARLENE GONZALEZ Attending Unavailable DARLENE GONZALEZ Referring Unavailable DARLENE GONZALEZ Referring Unavailable QUAN HUNTER Referring Unavailable MAUREEN MITCHELL Primary Care Unavailable QUAN HUNTER Referring Unavailable MAUREEN MITCHELL Primary Care Unavailable Allergies Allergy Classification Reported Allergen(s) Allergy Type Date of Onset Reaction(s) Facility Acetaminophen (1 source) Acetaminophen Drug Allergy 09-22-19 24 [facility] Opioid Agonists (1 source) Codeine Drug Allergy 09-22-19 24 [facility] Sulfonamides (antibiotic) (1 source) Sulfonamides (Antibiotic) Drug Allergy 09-22-19 24 [facility] venlafaxine (1 source) venlafaxine Drug Allergy 09-22-19 24 [facility] (20 sources) Non-steroidal anti-inflammator y agent; Translations: [NSAIDs] Drug allergy Unknown (qualifier value) General Surgery Karyn (2 sources) Sulfonamides (Antibiotic); Translations: [sulfa drugs] Drug allergy Unknown (qualifier value) General Surgery Karyn (20 sources) venlafaxine; Translations: [venlafaxine] Drug Allergy 07-16-19 19 Unknown (qualifier value), Unknown General Surgery Karyn (4 sources) NSAIDs; Translations: [NSAIDS (NON-STEROIDAL ANTI-INFLAMMATOR Y DRUG)] Drug allergy (disorder) 09-06-19 16 [facility] Repository (1 source) Tylenol-Codeine #3 Drug allergy (disorder) 01-23-20 16 [facility] Repository (20 sources) Codeine; Translations: [codeine] Drug Allergy 06-09-19 14 Other [facility] Repository (20 sources) Acetaminophen / Codeine Drug Allergy Unknown [employer] Other (18 sources) Sulfonamides (Antibiotic) Drug allergy Unknown [employer] Other (16 sources) Codeine Drug Allergy Unknown [employer] Other (4 sources) patient allergy list reviewed by nurse or physicia Propensity to adverse reactions 06-09-19 14 Comment:Done [employer] Other (4 sources) Allergies Reconciled Propensity to adverse reactions Unknown [employer] Other (16 sources) Sulf-10 Drug allergy Unknown [employer] Other (8 sources) cow milk allergenic extract; Translations: [MILK] Drug Allergy 12-11-19 23 [facility] Work Phone: (6 sources) Non-steroidal anti-inflammator y agent Drug Intolerance 09-06-19 16 Other [facility] Work Phone: (2 sources) VENLAFAXINE ANALOGUES; Translations: [VENLAFAXINE ANALOGUES] Propensity to adverse reactions to drug (disorder) 10-06-19 21 [facility] Repository (5 sources) Acetaminophen Drug Allergy 08-26-19 24 [facility] (5 sources) Sulfonamides (Antibiotic) Allergy to substance 08-26-19 24 [facility] (6 sources) NSAIDS (Non-Steroidal Anti-Inflamma Allergy to substance 08-26-19 24 [facility] Encounters Encounter Date Encounter Type Care Provider Facility Start: 12-18-2023 End: 12-18-2023 [facility] Work Phone: Start: 12-18-2023 End: 12-18-2023 Patient encounter procedure [facility] Work Phone: Start: 12-11-2023 End: 12-11-2023 [facility] Work Phone: Start: 12-11-2023 End: 12-11-2023 Patient encounter procedure [facility] Work Phone: Start: 11-11-2023 End: 11-11-2023 ambulatory DARLENE GONZALEZ Not Available Start: 11-10-2023 Non-patient / Non-visit [facility] Work Phone: Start: 10-22-2023 End: 10-22-2023 ambulatory DOROTHY Montgomery APLING Not Available Start: 10-22-2023 End: 10-22-2023 ambulatory DOROTHY B APLING Not Available Start: 10-14-2023 End: 10-14-2023 ambulatory [facility] Work Phone: Start: 10-14-2023 End: 10-14-2023 Patient encounter procedure [facility] Work Phone: Start: 09-22-2023 End: 09-22-2023 ambulatory [facility] Work Phone: Start: 09-22-2023 End: 09-22-2023 Patient encounter procedure [facility] Work Phone: Start: 09-12-2023 End: 09-12-2023 ambulatory [facility] Work Phone: Start: 09-12-2023 End: 09-12-2023 Patient encounter procedure [facility] Work Phone: Start: 09-03-2023 Non-patient / Non-visit [facility] Work Phone: Start: 08-26-2023 End: 08-26-2023 ambulatory [facility] Work Phone: Start: 08-26-2023 End: 08-26-2023 Patient encounter procedure [facility] Work Phone: Start: 07-23-2023 Non-patient / Non-visit [facility] Work Phone: Start: 07-23-2023 Non-patient / Non-visit [facility] Work Phone: Start: 07-15-2023 End: 07-15-2023 Subsequent hospital visit by physician Jyotsna [id number] [facility] Comment on above: Essential hypertensi on; Shortness of breath; Angina pectoris, unstable (CMS/HCC) Start: 07-15-2023 End: 07-15-2023 ambulatory [facility] Start: 07-07-2023 End: 07-07-2023 ambulatory Maureen Mitchell Other [employer] Other Start: 07-07-2023 Telephone encounter Maureen Mitchell [facility] Start: 07-01-2023 End: 07-01-2023 ambulatory [facility] Ambulatory Start: 07-01-2023 End: 07-01-2023 Office outpatient visit 25 minutes Quan Hunter MD Work Phone: [facility] Comment on above: Angina pectoris, uns table (CMS/HCC) (Primary Dx); Dilation of aorta (CMS/HCC); Essential hypertension; Heart valve disease; Shortness of breath; Smoker; BMI 32.0-32.9,adult Start: 06-19-2023 End: 06-19-2023 ambulatory Maureen Mitchell Other [employer] Other Start: 06-19-2023 Office outpatient vi sit 15 minutes Maureen Mitchell [facility] Start: 06-13-2023 End: 06-13-2023 Subsequent hospital visit by physician Jyotsna Alcala305 Echo/Vasc 3 [facility] Comment on above: Shortness of breath; Heart valve disease; Dizziness; Dilation of aorta (CMS/HCC) Start: 06-13-2023 End: 06-13-2023 ambulatory [facility] Start: 06-02-2023 End: 06-02-2023 ambulatory Maureen Mitchell Other [employer] Other Start: 06-02-2023 Telephone encounter Maureen Mando [facility] Start: 05-27-2023 End: 05-27-2023 ambulatory QUAN Golden [facility] Ambulatory Start: 05-27-2023 End: 05-27-2023 Office outpatient new 45 minutes Quan Hunter MD Work Phone: [facility] Comment on above: Shortness of breath; Essential hypertension; BMI 32.0-32.9,adult; Smoker; Heart valve disease; Dizziness; Dilation of aorta ([facility] Start: 05-15-2023 End: 05-15-2023 ambulatory Maureen Mando Other [employer] Other Start: 05-15-2023 Telephone encounter Maureen Mando [facility] Start: 05-01-2023 End: 05-01-2023 ambulatory Maureen Mando Other [employer] Other Start: 05-01-2023 Telephone encounter Maureen Mando [facility] Start: 04-21-2023 End: 04-21-2023 ambulatory Maureen Mando Other [employer] Other Start: 04-21-2023 Telephone encounter Maureen Mando [facility] Start: 04-03-2023 (Televisit) Televisit Maureen Mando [facility] Start: 04-03-2023 End: 04-03-2023 ambulatory Maureen Mando Other [employer] Other Start: 04-03-2023 Telephone encounter Maureen Mitchell [facility] Start: 04-01-2023 End: 04-01-2023 ambulatory Maureen Mando Other [employer] Other Start: 04-01-2023 Telephone encounter Maureen Mitchell [facility] Start: 03-13-2023 End: 03-13-2023 ambulatory Maureen Mando Other [employer] Other Start: 03-13-2023 Office outpatient vi sit 25 minutes Maureen Mitchell [facility] Start: 03-13-2023 Telephone encounter Maureen Mitchell [facility] Start: 02-13-2023 End: 02-13-2023 ambulatory Maureen Mitchell Other [employer] Other Start: 02-13-2023 Telephone encounter Maureen Mitchell [facility] Start: 01-30-2023 End: 01-30-2023 ambulatory Maureen Mitchell Other [employer] Other Start: 01-30-2023 Telephone encounter Maureen Mitchell [facility] Start: 01-16-2023 End: 01-16-2023 ambulatory Maureen Mitchell Other [employer] Other Start: 01-16-2023 Telephone encounter Maureen Mitchell [facility] Start: 12-31-2022 End: 12-31-2022 ambulatory Maureen Mando Other [employer] Other Start: 12-31-2022 Telephone encounter Maureen Mitchell [facility] Start: 12-06-2022 End: 12-06-2022 ambulatory Maureen Mitchell Other [employer] Other Start: 12-06-2022 Telephone encounter Maureen Mitchell [facility] Start: 11-18-2022 End: 11-18-2022 ambulatory Maureen Mitchell Other [employer] Other Start: 11-18-2022 Telephone encounter Maureen Mitchell [facility] Start: 11-06-2022 End: 11-06-2022 ambulatory Maureen Mitchell Other [employer] Other Start: 11-06-2022 Telephone encounter Maureen Mitchell [facility] Start: 09-19-2022 End: 09-19-2022 ambulatory Maureen Mando Other [employer] Other Start: 09-19-2022 Telephone encounter Maureen Mitchell [facility] Start: 09-10-2022 End: 09-10-2022 ambulatory Maureen Mitchell Other [employer] Other Start: 09-10-2022 Telephone encounter Maureen Mitchell [facility] Start: 08-22-2022 End: 08-22-2022 ambulatory Maureen Mitchell Other [employer] Other Start: 08-22-2022 Telephone encounter Maureen Mitchell [facility] Start: 08-19-2022 End: 08-19-2022 ambulatory Otoniel Kelly Other [employer] Other Start: 08-19-2022 Telephone encounter Otoniel Kelly [facility] Start: 07-30-2022 End: 07-30-2022 ambulatory Maureen Mitchell Other [employer] Other Start: 07-30-2022 Office outpatient vi sit 25 minutes Maureen Mitchell [facility] Start: 07-25-2022 End: 07-25-2022 ambulatory Maureen Mitchell Other [employer] Other Start: 07-25-2022 Telephone encounter Maureen Mitchell [facility] Start: 07-24-2022 End: 07-24-2022 ambulatory Maureen Mitchell Other [employer] Other Start: 07-24-2022 Telephone encounter Maureen Mitchell [facility] Start: 03-29-2022 End: 03-30-[address] MAUREEN MITCHELL Facility:[facility] Start: 03-29-2022 Adult health examination Maureen Mitchell Other [employer] Other Start: 03-25-2022 End: 03-26-[address] MAUREEN MITCHELL Facility:[facility] Start: 12-28-2021 End: 01-15-2022 ambulatory MAUREEN MITCHELL Facility:[facility] Start: 12-05-2021 Encounter for genera l adult medical examination without abnormal findings DR MAUREEN MITCHELL [facility] Start: 12-04-2021 End: 12-05-[address] IBRAHIMA GONZALEZ Facility:[facility] Start: 12-04-2021 End: 12-05-2021 Encounter for general adult medical examination without abnormal findings DR MAUREEN MITCHELL Facility: Start: 11-23-2021 End: 11-24-2021 ambulatory Ibrahima GONZALEZ Facility:[facility] Start: 11-23-2021 End: 11-23-2021 Patient encounter procedure Ibrahima GONZALEZ [facility] Surgery [facility] Start: 11-09-2021 ambulatory Ibrahima GONZALEZ Facility:[facility] Start: 11-03-2021 End: 11-03-[address] CHONG GUTIERREZ Facility: Start: 02-09-2018 End: 02-09-2018 Patient encounter PATRICK Isaias MENDOZA [facility] Start: 02-06-2018 End: 02-11-2018 [facility] Start: 11-17-2017 End: 11-18-2017 Ambulatory VIPUL PARSONS [facility] Start: 10-18-2017 End: 10-20-2017 Evaluation and management of inpatient MOISE ARGUETA [facility] Immunizations Immunization Date Immunization Notes Care Provider Fa cili 05-13-2021 influenza virus vaccine, unspecified formulation Quan Hunter MD Work Phone: [facility] Work Phone: 08-22-2020 COVID-19 Vaccine Pfi zer - Documentation Purposes Only Maureen Mitchell Other [facility] 08-02-2020 COVID-19 Vaccine Pfi zer - Documentation Purposes Only Maureen Mitchell Other [facility] 04-28-2020 influenza virus vaccine, split virus (incl. purified surface antigen) Maureen Mitchell Other [employer] Other 04-28-2020 influenza virus vaccine, unspecified formulation [facility] 03-06-2016 influenza virus vaccine, split virus (incl. purified surface antigen) Maureen Mitchell Other [employer] Other 03-06-2016 influenza virus vaccine, unspecified formulation [facility] Medications Current Medications Medication Drug Class(es) Dates Sig (Normalized) Sig (Original) atenolol 100 mg oral tablet (4 sources) beta-Adrenergic Mak Start: 07-11-2023 atenolol (Tenormin) tablet 100 mg ciprofloxacin 3 mg/ml ophthalmic solution (6 sources) Quinolone Antimicrobial Start: 11-14-2022 Ciprofloxacin HCl 0.3 % 1 application into the lower eyelid of affected eye Ophthalmic tid for 5 day(s) Oct, Active Start: 11-14-2022 eletriptan 40 mg oral tablet (20 sources) Serotonin-1b and Serotonin-1d Receptor Agonist Start: 11-10-2023 Eletriptan Active 40 MG PO . NEEDED November 10, 2023 4:40pm Start: 08-19-2023 End: 11-10-2023 Eletriptan Discontinued 1 TA B PO . NEEDED August 19, 2023 12:00am November 10, 2023 4:40pm [employer] tablet Orally as needed; Note: Source Status: Taking; Refills: 1; Qty: 20 Tablet; Provider: Mando Morales Start: 04-01-2023 eletriptan (Re lpax) 40 mg tablet Take 1 tablet (40 mg) by mouth if needed for migraine. 0 04/01/2023 Active Start: 11-14-2021 take 1 tablet by mouth once Re lpax 40 mg Tab 40 mg = 1 tab(s), Oral, Once, Refills(s) 0 Start Date: 11/14/21 Status: Ordered Relpax Not-Takin g 24 hr metoprolol succinate 25 mg extended release oral tablet (12 sources) beta-Adrenergic Mak Start: 07-15-2023 End: 07-15-2023 metoprolol tartrate (Lopressor) injection 10 mg Start: 07-15-2023 End: 07-15-2023 metoprolol tartrate (Lopress or) injection 10 mg Start: 07-15-2023 End: 07-15-2023 metoprolol tartrate (Lopress or) injection 10 mg Start: 07-15-2023 End: 07-15-2023 metoprolol tartrate (Lopress or) injection 10 mg Start: 07-01-2023 End: 06-30-2024 Metoprolol Succinate Active 25 MG PO September 12, 2023 12:00am ondansetron 4 mg disintegrating oral tablet (5 sources) Serotonin-3 Receptor Antagonist Start: 10-14-2023 End: 11-10-2023 take 4 mg by mouth every twelve hours Ondansetron Active 4 MG PO Every 12 hours 30 30 November 10, 2023 3:39pm sertraline 100 mg oral tablet (20 sources) Serotonin Reuptake Inhibitor Start: 12-09-2023 take 2 tablets by mouth once daily Sertraline Active 0 .ROUTE .COMPLEX 180 December 09, 2023 3:49pm TAKE 2 TABLETS BY MOUTH ONCE DAILY Start: 08-19-2023 End: 12-09-2023 take 2 tablets by mouth once daily Sertraline (Zoloft) 100 mg tablet Discontinued 100 MG PO Daily August 19, 2023 12:00am December 09, 2023 3:49pm [employer] tablets Orally Once a day; Note: Source Status: Taking; Refills: 1; Qty: 180 Tablet; Provider: Mando Morales Start: 05-02-2023 take 1 tablet by steve once daily sertraline (Zoloft) 100 mg tablet Take 1 tablet (100 mg) by mouth once daily. 0 05/02/2023 Active Start: 11-14-2021 take 2 tablets by mo [facility] once daily Zoloft 100 mg Tab 200 mg = 2 tab(s), Oral, Daily, Refills(s) 0 Start Date: 11/14/21 Status: Ordered Zoloft Active Vitamin D (20 sources) Vitamin D Active Completed/Discontinued Medications Medication Drug Class(es) Dates Sig (Normalized) Sig (Original) ALPRAZolam 0.5 mg oral tablet (20 sources) Benzodiazepine Start: 07-23-2023 End: 12-11-2023 take 1 tablet by mouth every four hours as needed, then take 0.5 tablet by mouth every four hours as needed, then take 5 tablets by mouth once daily as needed Alprazolam Discontinued 0 PO Every 4 hours 75 15 September 22, 2023 5:30pm October 03, 2023 9:15am alternate 1 tab and 0.5 tab every 4h as needed, not to exceed 5 tabs/day Start: 07-23-2023 End: 07-23-2023 take 0.5 mg by mouth four times daily Alprazolam Discontinued 0.5 MG PO Four times daily July 23, 2023 1:00am July 23, 2023 2:08pm Start: 05-22-2023 take 1 tablet by steve th every four hours ALPRAZolam (Xanax) 0.5 mg tablet Take 1 tablet (0.5 mg) by mouth every 4 hours. 0 05/22/2023 Active Start: 05-22-2023 take 1 tablet by steve th once daily ALPRAZolam (Xanax) 0.5 mg tablet Take 1 tablet (0.5 mg) by mouth once daily. 0 05/22/2023 Active Start: 04-16-2023 take 1 tablet by steve th every four hours as needed ALPRAZolam 0.5 mg TAKE 1 TABLET BY MOUTH EVERY 4 HOURS NEEDED for 30 Mar, Active Start: 03-13-2023 take 1 tablet by steve th every four hours as needed Xanax 0.5 MG 1 tablet Orally every 4 hours, as needed for 30 days Feb, Active Start: 02-13-2023 take 1 tablet by steve th every four hours as needed Xanax 0.5 MG 1 tablet Orally every 4 hours, as needed for 30 days Jan, Active Start: 01-16-2023 take 1 tablet by steve th every four hours as needed Xanax 0.5 MG 1 tablet Orally every 4 hours, as needed for 30 days Dec, Active Start: 12-16-2022 take 1 tablet by steve th every four hours as needed Xanax 0.5 MG 1 tablet Orally every 4 hours, as needed for 30 days Nov, Active Start: 11-18-2022 take 1 tablet by steve th every four hours as needed Xanax 0.5 MG 1 tablet Orally every 4 hours, as needed for 30 days Oct, Active Start: 10-17-2022 take 1 tablet by steve th every four hours as needed Xanax 0.5 MG 1 tablet Orally every 4 hours, as needed for 30 days September, Active Start: 09-20-2022 take 1 tablet by steve th every four hours as needed Xanax 0.5 MG 1 tablet Orally every 4 hours, as needed for 30 days Aug, Active Start: 08-22-2022 take 1 tablet by steve th every four hours as needed Xanax 0.5 MG 1 tablet Orally every 4 hours, as needed for 30 days Jul, Active Start: 07-24-2022 take 1 tablet by steve th every four hours as needed Xanax 0.5 MG 1 tablet Orally every 4 hours, as needed for 30 days Jul, Active Start: 11-14-2021 take 1 tablet by steve th every four hours as needed for anxiety alprazolam 0.5 mg Tab 0.5 mg = 1 tab(s), Oral, q4hr, PRN for anxiety, Refills(s) 0 Start Date: 11/14/21 Status: Ordered amitriptyline hydrochloride 75 mg oral tablet (20 sources) Tricyclic Antidepressant Start: 10-14-2023 End: 12-11-2023 take 75 mg by mouth once daily at bedtime Amitriptyline Discontinued 75 MG PO Daily at bedtime November 10, 2023 3:38pm November 14, 2023 2:38pm Start: 09-22-2023 End: 10-14-2023 take 1 tablet by mouth at bedtime Amitriptyline Discontinued 0 .ROUTE .COMPLEX September 22, 2023 5:36pm October 14, 2023 4:47pm TAKE 1 TABLET BY MOUTH AT BEDTIME Start: 08-19-2023 End: 09-22-2023 take 1 tablet by mouth once daily at bedtime Amitriptyline Discontinued 1 TAB PO Daily at bedtime August 19, 2023 12:00am September 22, 2023 5:36pm [employer]: TAKE 1 TABLET BY MOUTH AT BEDTIME; Note: Source Status: Taking; Refills: 3; Qty: 30 Tablet; Provider: Mando Traylor ( ) Start: 11-14-2021 take 1 tablet by steve at bedtime Amitriptyline HCl 100 MG 1 tablet at bedtime Orally at bedtime for 30 days Dec, Active Start: 01-18-2021 amitriptyline (Elavil) 75 mg tablet Take 100 mg by mouth once daily at bedtime. 0 01/18/2021 Active carvedilol 3.125 mg oral tablet (15 sources) alpha-Adrenergic Mak, beta-Adrenergic Mak Start: 05-27-2023 End: 05-26-2024 take 1 tablet by mouth twice daily carvedilol (Coreg) 3.125 mg tablet Indications: Essential hypertension Take 1 tablet (3.125 mg) by mouth 2 times a day. 180 tablet 3 05/27/2023 07/01/2023 Discontinued (Therapy completed) Coreg Not-Taking cholecalciferol 1.25 mg oral capsule (20 sources) Vitamin D Start: 07-23-2023 End: 09-23-2023 take 1250 ug by mouth two times weekly Cholecalciferol (Vitamin D3) Discontinued 1250 MCG PO Twice a Week July 24, 2023 9:40am September 23, 2023 11:41am Start: 03-10-2023 take 1 capsule by mo [facility] two times weekly cholecalciferol (Vitamin D-3) 50,000 unit capsule Take 1 capsule (50,000 Units) by mouth 2 times a week. 0 03/10/2023 Active take 1 capsule by [facility] two times weekly Vitamin D3 1.25 MG (94221 UT) TAKE 1 CAPSULE BY MOUTH TWICE A WEEK for 85 Active iohexol (OMNIPaque) 350 mg iodine/mL solution 80 mL (2 sources) Start: 07-15-2023 End: 07-15-2023 iohexol (OMNIPaque) 350 mg iodine/mL solution 80 mL nitroglycerin 0.4 mg/actuat mucosal spray (2 sources) Nitrate Vasodilator Start: 07-15-2023 End: 07-15-2023 nitroglycerin (NitrolinguaL) 400 mcg/spray spray 2 spray Omeprazole (10 sources) Proton Pump Inhibitor Omeprazole Not-Taking oxyCODONE hydrochloride 20 mg oral tablet (20 sources) Opioid Agonist Start: 09-22-2023 End: 12-11-2023 take 20 mg by mouth every four hours Oxycodone Discontinued 20 MG PO Every 4 hours 90 October 14, 2023 November 06, 2023 4:36pm Start: 09-09-2023 End: 09-22-2023 take 20 mg by mouth every six hours Oxycodone Discontinued 20 MG PO Every 6 hours 28 September 15, 2023 September 22, 2023 5:33pm Start: 08-07-2023 End: 09-09-2023 take 30 mg by mouth every four hours Oxycodone Discontinued 30 MG PO Every 4 hours 180 August 07, 2023 September 09, 2023 12:17pm Start: 05-01-2023 take 1 tablet by steve th every four hours oxyCODONE (Roxicodone) 30 mg immediate release tablet Take 1 tablet (30 mg) by mouth every 4 hours. 0 05/01/2023 Active Start: 05-01-2023 take 1 tablet by steve th once daily oxyCODONE (Roxicodone) 30 mg immediate release tablet Take 1 tablet (30 mg) by mouth once daily. 0 05/01/2023 Active Start: 04-02-2023 take 1 tablet by steve th every four hours oxyCODONE HCl 30 MG 1 tablet Orally every 4 hrs for 30 days Mar, Active Start: 03-03-2023 take 1 tablet by steve th every four hours oxyCODONE HCl 30 MG 1 tablet Orally every 4 hrs for 30 days Feb, Active Start: 01-30-2023 take 1 tablet by steve th every four hours oxyCODONE HCl 30 MG 1 tablet Orally every 4 hrs for 30 days Jan, Active Start: 01-02-2023 take 1 tablet by steve th every four hours oxyCODONE HCl 30 MG 1 tablet Orally every 4 hrs for 30 days Dec, Active Start: 12-06-2022 take 1 tablet by steve th every four hours oxyCODONE HCl 30 MG 1 tablet Orally every 4 hrs for 30 days Nov, Active Start: 11-06-2022 take 1 tablet by steve th every four hours Start: 09-11-2022 take 1 tablet by steve th every four hours oxyCODONE HCl 30 MG 1 tablet Orally every 4 hrs for 30 days Aug, Active Start: 08-12-2022 take 1 tablet by steve th every four hours oxyCODONE HCl 30 MG 1 tablet Orally every 4 hrs for 30 days Jul, Active Start: 07-24-2022 take 1 tablet by steve th every six hours oxyCODONE HCl 30 MG 1 tablet Orally every 6 hrs for 30 days Jul, Active Start: 11-14-2021 take 1 tablet by steve th every four hours as needed for pain oxycodone 30 mg oral tablet 30 mg = 1 tab(s), Oral, q4hr, PRN for pain, Refills(s) 0 Start Date: 11/14/21 Status: Ordered pregabalin 200 mg oral capsule (20 sources) Start: 07-23-2023 End: 11-26-2023 take 200 mg by mouth three times daily Pregabalin Discontinued 200 MG PO Three times daily 90 July 23, 2023 2:07pm September 02, 2023 8:50am Start: 11-14-2021 take 1 capsule by mo uth three times daily Lyrica 200 MG 1 capsule Orally three times daily Apr, Active Lyrica Active Vitamin D 50,000 intl units (1.25 mg) oral capsule (1 source) Start: 11-14-2021 take 1 capsule by mouth once Vitamin D 50,000 intl units (1.25 mg) oral capsule 50,000 International_Unit = 1 cap(s), Oral, MonFri, Refills(s) 0 Start Date: 11/14/21 Status: Ordered Payers Date Payer Category Payer Medicare [id number] 2022 Private Health Insurance [facility] [id number] 2022-Present [address] [place] [address] [id number] 2022 Private Health Insurance [id number] 2021 Private Health Insurance [id number] 2014 Unknown [id number] 1968 Unknown [id number] [id number]. 647 1968 Unknown [id number] 2.16.840.1.483180.3.579.2. 593 1968 Unknown [id number] 2.16.840.1.346233.3.579.2. 593 1968 Unknown [id number] 2.16.840.1.650487.3.579.2. 593 1968 Unknown [id number] 2.16.840.1.470524.3.579.2. 593 1968 Unknown [id number] 2.16.840.1.551897.3.579.2. 593 1968 Unknown [id number] 2.16.840.1.655915.3.579.2. 727 1968 Unknown [id number] 2.16.840.1.547938.3.579.2. 124 1968 Unknown [id number] 2.16.840.1.474298.3.579.2. 124 1968 Unknown [id number] 2.16.840.1.063103.3.579.2. 1258 1968 Unknown [id number] 2.16.840.1.400777.3.579.2. 1258 1968 Unknown [id number] 2.16.840.1.975232.3.579.2. 1258 1968 Unknown [id number] 2.16.840.1.026624.3.579.2. 1258 1968 Unknown [id number] 2.16.840.1.103648.3.579.2. 1258 1968 Unknown [id number] 2.16.840.1.106622.3.579.2. 1258 1968 Unknown [id number] 2.16.840.1.375116.3.579.2. 124 1968 Unknown [id number] 2.16.840.1.390931.3.579.2. 1246 1959 Private Health Insurance [id number] Private Health Insurance [id number] Self-pay Self Pay [id number] Plan of Treatment Date Care Activity Detail Author Start: 09-30-2023 End: 09-30-2023 Patient encounter procedure 09/30/2023 10:00 AM EDT Office Visit [facility] [address] [phone] Quan Hunter MD [address] [facility] Medical Office [facility], [address] [id number] [facility] Start: 07-01-2023 End: 07-01-2024 CTA Heart and Coronary arteries WO and W contrast IV CT angio coronary art with heartflow if score >30% Imaging Routine Essential hypertension Shortness of breath Angina pectoris, unstable (CMS/HCC) Expected: 07/01/2023 (Approximate), Expires: 07/01/2024 [facility] Service Area Work Phone: Comment on above: Expected: 07/01/2023 (Approximate), Expires: 07/01/2024 Start: 07-01-2023 End: 07-01-2023 Patient encounter procedure 07/01/2023 2:00 PM EST Office Visit [facility] [address] [phone] Quan Hunter MD [address] [facility] Office [facility], [address] [phone] [facility] Start: 05-27-2023 End: 05-27-2024 CT Chest WO contrast CT chest wo IV contrast Imaging Routine Heart valve disease Dilation of aorta (CMS/HCC) Expected: 05/27/2023 (Approximate), Expires: 05/27/2024 [facility] Work Phone: Comment on above: Expected: 05/27/2023 (Approximate), Expires: 05/27/2024 Start: 05-27-2023 End: 05-27-2025 US Heart Transthoracic Transthoracic Echo (TTE) Complete Echocardiography Routine Shortness of breath Heart valve disease Dizziness Dilation of aorta (CMS/HCC) Expected: 05/27/2023 (Approximate), Expires: 05/27/2025 [facility] Service Area Work Phone: Comment on above: Expected: 05/27/2023 (Approximate), Expires: 05/27/2025 Start: 01-24-2023 COVID-19 Vaccine () COVID-19 Vaccine ( season) [facility] Start: 01-24-2023 Influenza vaccination Influenza Vacc ine (#1) [facility] Start: 07-08-2021 COVID-19 Vaccine (4 - Pfizer series) COVID-19 Vaccine (4 - Pfizer series) [facility] Start: 2018 Zoster Vaccines (1 o f 2) Zoster Vaccines (1 of 2) [facility] Start: 2008 Screening for malign ant neoplasm of breast Mammogram [facility] Start: 05-17-1997 DTaP/Tdap/Td Vaccine s (1 - Tdap) DTaP/Tdap/Td Vaccines (1 - Tdap) [facility] Start: 1989 Screening for malign ant neoplasm of cervix [facility] Start: 1986 Diabetes mellitus screening Diabetes Screening [facility] Start: 1986 Hepatitis C screening Hepatitis C Sc reening [facility] Start: 1974 Pneumococcal Vaccine : Pediatrics (0 to 5 Years) and At-Risk Patients (6 to 64 Years) (1 - PCV) Pneumococcal Vaccine: Pediatrics (0 to 5 Years) and At-Risk Patients (6 to 64 Years) (1 - PCV) [facility] Start: 1968 HIV screening HIV Screening [facility] Start: 1968 Lipid panel Lipid Panel [facility] Start: 1968 Screening for malign ant neoplasm of colon [facility] Start: 1968 Screening for osteoporosis Bone Density Scan [facility] Start: 1968 Yearly Adult Physical Yearly Adult [facility] Comprehensive metabo lic 2000 panel - Serum or Plasma [facility] Patient Education Low back pain in adults [facility] Work Phone: [facility] Problems Active Problems Problem Classification Problem Date Documented Da te Episodic/Chronic Acute bronchitis (8 sources) Acute bronchitis; Translations: [Acute bronchitis, unspecified] Onset: 4 Episodic Administrative/social admission (4 sources) Other reduced mobility; Translations: [Impaired mobility and activities of daily living] 10-16-2023 Episodic Anxiety disorders (20 sources) Anxiety; Translations: [Anxiety disorder, unspecified] Onset: 2 11-14-2021 Chronic Aortic; peripheral; and visceral artery aneurysms (14 sources) Dilatation of aorta; Translations: [Aortic ectasia, unspecified site] Onset: 4 05-27-2023 Chronic Attention-deficit, conduct, and disruptive behavior disorders (1 source) Attention deficit hyperactivity disorder 11-14-2021 Chronic Attention-deficit, conduct, and disruptive behavior disorders (4 sources) Attention deficit hyperactivity disorder, combined type; Translations: [Attention-deficit hyperactivity disorder, combined type] Chronic Biliary tract disease (8 sources) Biliary calculus; Translations: [Calculus of gallbladder without cholecystitis without obstruction] Onset: 2 11-14-2021 Episodic Cardiac and circulatory congenital anomalies (6 sources) Congenital anomaly of aorta; Translations: [Patent foramen ovale] 11-14-2021 Chronic Cardiac dysrhythmias (4 sources) Palpitations; Translations: [Palpitations] Episodic Chronic ulcer of skin (8 sources) Disorder of elbow; Translations: [Non-pressure chronic ulcer of skin of other sites with unspecified severity] 08-27-2023 Chronic Coronary atherosclerosis and other heart disease (7 sources) Preinfarction syndrome; Translations: [Unstable angina] Onset: 4 07-01-2023 Chronic Deficiency and other anemia (20 sources) Iron deficiency anemia; Translations: [Iron deficiency anemia, unspecified] 11-14-2021 Episodic Deficiency and other anemia (5 sources) Pernicious anemia; Translations: [Vitamin B12 deficiency anemia due to intrinsic factor deficiency] 11-14-2021 Episodic Deficiency and other anemia (4 sources) Anemia; Translations: [Anemia, unspecified] Episodic Deficiency and other anemia (1 source) Iron deficiency anemia, unspecified Episodic Esophageal disorders (9 sources) Gastroesophageal reflux disease; Translations: [Gastroesophageal reflux disease without esophagitis] Onset: 7 11-14-2021 Chronic Essential hypertension (20 sources) Essential hypertension; Translations: [Essential (primary) hypertension] Onset: 4 05-27-2023 Chronic Fluid and electrolyte disorders (16 sources) Hypo-osmolality and hyponatremia; Translations: [Dehydration] Onset: 2 Episodic Fracture of lower limb (20 sources) Closed fracture of ankle; Translations: [Other fracture of left lower leg, subsequent encounter for closed fracture with routine healing] Onset: 8 Episodic Gastroduodenal ulcer (except hemorrhage) (1 source) H/O: peptic ulcer 11-14-2021 Episodic Gastrointestinal hemorrhage (20 sources) Gastrointestinal hemorrhage, unspecified; Translations: [Gastrointestinal hemorrhage] Onset: 8 Episodic Headache; including migraine (20 sources) Migraine; Translations: [Migraine, unspecified, not intractable, without status migrainosus] 11-14-2021 Chronic Heart valve disorders (1 source) Mitral valve regurgitation 11-14-2021 Chronic Intestinal infection (4 sources) Clostridial gastroenteritis; Translations: [Enterocolitis due to Clostridium difficile, not specified as recurrent] Episodic Mood disorders (10 sources) Depressive disorder; Translations: [Dysthymia] Onset: 6 11-14-2021 Chronic Nutritional deficiencies (19 sources) Vitamin D deficiency; Translations: [Vitamin D deficiency, unspecified] Onset: 5 11-14-2021 Chronic Open wounds of extremities (1 source) Laceration without foreign body of left elbow, initial encounter Episodic Osteoporosis (5 sources) Osteoporosis; Translations: [Primary osteoporosis] Onset: 5 11-14-2021 Chronic Other aftercare (3 sources) Other jail (current) drug therapy; Translations: [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 DRUG THERAPY] Onset: 2 Episodic Other aftercare (5 sources) Patient encounter status; Translations: [Encounter for palliative care] 09-10-2023 Episodic Other aftercare (3 sources) Encounter for palliative care; Translations: [Encounter for palliative care] 09-12-2023 Episodic Other circulatory disease (4 sources) Elevated blood-pressure reading without diagnosis of hypertension; Translations: [Elevated blood-pressure reading, without diagnosis of hypertension] Episodic Other connective tissue disease (2 sources) Pain in left leg Episodic Other connective tissue disease (1 source) Pain in left foot Episodic Other connective tissue disease (8 sources) Pain in limb; Translations: [Pain in unspecified limb] Onset: 4 Episodic Other connective tissue disease (4 sources) Pain in left foot; Translations: [Pain in left foot] Episodic Other connective tissue disease (1 source) Other specified soft tissue disorders Episodic Other connective tissue disease (6 sources) Peripheral neuropathic pain; Translations: [Neuralgia and neuritis, unspecified] 07-23-2023 Episodic Other connective tissue disease (8 sources) Neuralgia and neuritis, unspecified; Translations: [Neuralgia, neuritis, and radiculitis, unspecified] 08-26-2023 Episodic Other ear and sense organ disorders (1 source) Bilateral hearing loss 11-14-2021 Chronic Other ear and sense organ disorders (4 sources) Hearing loss; Translations: [Unspecified hearing loss, bilateral] Chronic Other endocrine disorders (4 sources) Hypoglycemia; Translations: [Hypoglycemia, unspecified] Chronic Other gastrointestinal disorders (1 source) History of gastrointestinal bleed 11-14-2021 Episodic Other gastrointestinal disorders (4 sources) History of bariatric surgical procedure; Translations: [Bariatric surgery status] Episodic Other lower respiratory disease (1 source) Dyspnea, unspecified Episodic Other nervous system disorders (1 source) Peripheral nerve disease 11-14-2021 Chronic Other nervous system disorders (4 sources) Hereditary peripheral neuropathy; 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] Onset: 5 Chronic Other nervous system disorders (5 sources) Chronic pain syndrome; Translations: [Chronic pain syndrome] 09-10-2023 Chronic Other nervous system disorders (12 sources) Chronic pain syndrome; Translations: [Chronic pain syndrome] 09-12-2023 Chronic Other non-traumatic joint disorders (4 sources) Arthralgia of the ankle and/or foot; Translations: [Pain in left ankle and joints of left foot] Episodic Other nutritional; endocrine; and metabolic disorders (9 sources) Body mass index 30+ - obesity; Translations: [Body mass index (BMI) 32.0-32.9, adult] Onset: 4 11-23-2021 Chronic Other nutritional; endocrine; and metabolic disorders (8 sources) Obese class I; Translations: [Body mass index (BMI) 33.0-33.9, adult] Chronic Other nutritional; endocrine; and metabolic disorders (2 sources) Body mass index (BMI) 32.0-32.9, adult; Translations: [Body mass index (BMI) 32.0-32.9, adult] Onset: 4 Chronic Other skin disorders (8 sources) Sebaceous cyst; Translations: [Sebaceous cyst] Onset: 9 Episodic Otitis media and related conditions (4 sources) Non-suppurative otitis media; Translations: [Unspecified nonsuppurative otitis media, left ear] Episodic Ema-; endo-; and myocarditis; cardiomyopathy (except that caused by tuberculosis or sexually transmitted disease) (14 sources) Heart valve disorder; Translations: [Endocarditis, valve unspecified] Onset: 4 05-27-2023 Chronic Residual codes; unclassified (1 source) Insomnia 11-14-2021 Episodic Residual codes; unclassified (4 sources) Family history of diabetes mellitus; Translations: [Family history of diabetes mellitus] Episodic Residual codes; unclassified (6 sources) Edema; Translations: [Edema, unspecified] 08-26-2023 Episodic Residual codes; unclassified (4 sources) Edema, unspecified; Translations: [Edema] 08-26-2023 Episodic Spondylosis; intervertebral disc disorders; other back problems (20 sources) Other intervertebral disc displacement, lumbar region; Translations: [Cervical disc disorder] Onset: 8 11-14-2021 Chronic Spondylosis; intervertebral disc disorders; other back problems (20 sources) Neck pain; Translations: [Cervicalgia] Onset: 7 08-27-2023 Episodic Substance-related disorders (15 sources) Nicotine dependence, cigarettes, uncomplicated; Translations: [Nicotine dependence] Onset: 9 05-27-2023 Chronic Past or Other Problems Problem Classification Problem Date Documented Date Episodic/Chronic Abdominal pain (20 sources) Periumbilical pain; Translations: [Periumbilical pain] Onset: 11-08-2016 Episodic Bacterial infection; unspecified site (4 sources) Bacterial infectious disease; Translations: [Bacterial infection, unspecified, in conditions classified elsewhere and of unspecified site] Onset: 10-13-2018 Episodic Conditions associated with dizziness or vertigo (13 sources) Dizziness; Translations: [Dizziness and giddiness] Onset: 05-27-2023 05-27-2023 Episodic Deficiency and other anemia (1 source) Other iron deficiency anemias; Translations: [OTHER IRON DEFICIENCY ANEMIAS] Onset: 12-05-2021 Episodic Deficiency and other anemia (1 source) Vitamin B12 deficiency anemia due to intrinsic factor deficiency; Translations: [VITAMIN B12 DEF ANEMIA DUE IF DEF] Onset: 12-05-2021 Episodic Mood disorders (1 source) Mood disorders Nonspecific chest pain (4 sources) Chest pain; Translations: [Chest pain, unspecified] Onset: 01-04-2016 Episodic Other aftercare (1 source) 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; Translations: [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 CURRENT USE OF ASPIRIN] Onset: 11-06-2021 Episodic Other connective tissue disease (4 sources) Pain in forearm; Translations: [Pain in joint, forearm] Onset: 03-26-2018 Episodic Other lower respiratory disease (14 sources) Dyspnea; Translations: [Shortness of breath] Onset: 05-27-2023 05-27-2023 Episodic Other lower respiratory disease (2 sources) Shortness of breath; Translations: [Shortness of breath] Onset: 05-27-2023 Episodic Other non-traumatic joint disorders (8 sources) Arthralgia of the lower leg; Translations: [Pain in right knee] Onset: 09-21-2013 Episodic Other screening for suspected conditions (not mental disorders or infectious disease) (3 sources) Imaging of abdomen abnormal; Translations: [Abnormal findings on diagnostic imaging of other abdominal regions, including retroperitoneum] Onset: 11-23-2021 Episodic Residual codes; unclassified (5 sources) Tobacco user; Translations: [Tobacco use] Onset: 08-21-2016 11-14-2021 Episodic Residual codes; unclassified (4 sources) C/O - a back symptom; Translations: [Other symptoms referable to back] Onset: 05-20-2017 Episodic Substance-related disorders (4 sources) Drug-induced insomnia; Translations: [Insomnia due to medical condition classified elsewhere] Onset: 05-20-2017 Episodic Unclassified (2 sources) Low back pain, unspecified M54.50 Procedures Date Procedure Procedure Detail Performing Clinician Start: 07-15-2023 CT ANGIO CORONARY ART WITH HEARTFLOW IF SCORE >30% QUAN HUNTER Start: 07-15-2023 POCT CREATININE AND GFR QUAN ABIOSE Start: 07-15-2023 Cta hrt cornry art/bypass grfts contrst 3d post Quan Hunter MD Work Phone: Start: 07-15-2023 Creatinine blood Interface Unspecifiedprovider Work Phone: Start: 06-13-2023 TRANSTHORACIC ECHO (TTE) COMPLETE QUAN HUNTER Start: 06-13-2023 Echo tthrc r-t 2d w/wom-mode compl spec&colr d Quan Hunter MD Work Phone: Start: 02-09-2018 INCENTIVE SPIROMETRY RT PATRICK REJI Start: 02-09-2018 DISCHARGE PATIENT PATRICK REJI Start: 02-09-2018 SURGICAL PATHOLOGY PATRICK REJI Start: 02-09-2018 INCENTIVE SPIROMETRY RT PATRICK REJI Start: 02-09-2018 INITIATE OXYGEN THERAPY PROTOCOL PATRICK REJI Start: 02-09-2018 FLUORO FOR SURGICAL PROCEDURES PATRICK REJI Start: 02-09-2018 ASSESS PATRICK REJI Start: 02-09-2018 BEDREST PATRICK REJI Start: 02-09-2018 Continuous pulse oximetry PATRICK REJI Start: 02-09-2018 ENCOURAGE DEEP BREATHING AND COUGHING PATRICK REJI Start: 02-09-2018 INCENTIVE SPIROMETRY RT PATRICK REJI Start: 02-09-2018 INITIATE OXYGEN THERAPY PROTOCOL PATRICK REJI Start: 02-09-2018 NEURO/VASCULAR CHECKS PATRICK REJI Start: 02-09-2018 NOTIFY PHYSICIAN (SPECIFY) PATRICK REJI Start: 02-09-2018 NURSING COMMUNICATION PATRICK REJI Start: 02-09-2018 VITAL SIGNS PATRICK REJI Start: 02-09-2018 DIET NPO, AFTER MIDNIGHT PATRICK REJI Start: 02-09-2018 INITIATE OXYGEN THERAPY PROTOCOL PATRICK REJI Start: 02-09-2018 NOTIFY PHYSICIAN (SPECIFY) PATRICK REJI Start: 02-09-2018 PLACE INTERMITTENT PNEUMATIC COMPRESSION DEVICE PATRICK REJI Start: 02-09-2018 PULSE OXIMETRY SPOT CHECK APTRICK REJI Start: 02-09-2018 VITAL SIGNS PATRICK REJI Start: 02-06-2018 Basic metabolic panel calcium total PATRICK REJI Start: 02-06-2018 Blood count complete automated PATRICK REJI Start: 02-06-2018 TYPE AND SCREEN PATRICK REJI Start: 02-06-2018 Prothrombin time PATRICK REJI Start: 02-06-2018 Thromboplastin time partial plasma/whole blood PATRICK REJI Start: 02-06-2018 URINE RT REFLEX TO CULTURE PATRICK REJI Start: 11-17-2017 HEMOGLOBIN AND HEMATOCRIT, BLOOD MOISE ARGUETA Start: 10-20-2017 DISCHARGE PATIENT MOISE ARGUETA Start: 10-20-2017 DIET GENERAL MOISE ARGUETA Start: 10-20-2017 HEMOGLOBIN AND HEMATOCRIT, BLOOD MOISE ARGUETA Start: 10-20-2017 INITIATE OXYGEN THERAPY PROTOCOL MOISE ARGUETA Start: 10-20-2017 HEMOGLOBIN AND HEMATOCRIT, BLOOD MOISE ARGUETA Start: 10-20-2017 BASIC METABOLIC PANEL W/ REFLEX TO MG FOR LOW K MOISE ARGUETA Start: 10-20-2017 Blood count complete automated MOISE FINLEY Start: 10-20-2017 CALCIUM, IONIZED MOISE ARGUETA Start: 10-20-2017 Prothrombin time MOISE ARGUETA Start: 10-20-2017 DAILY WEIGHTS MOISE ARGUETA Start: 10-20-2017 ENDO PROCEDURE MOISE ARGUETA Start: 10-20-2017 INTAKE AND OUTPUT MOISE ARGUETA Start: 10-20-2017 HEMOGLOBIN AND HEMATOCRIT, BLOOD MOISE ARGUETA Start: 10-19-2017 HEMOGLOBIN AND HEMATOCRIT, BLOOD MOISE ARGUETA Start: 10-19-2017 HEMOGLOBIN AND HEMATOCRIT, BLOOD MOISE ARGUETA Start: 10-19-2017 Potassium serum plasma/whole blood MOISE ARGUETA Start: 10-19-2017 TROPONIN MOISE ARGUETA Start: 10-19-2017 HEMOGLOBIN AND HEMATOCRIT, BLOOD MOISE ARGUETA Start: 10-19-2017 IP CONSULT TO GI MOISE ARGUETA Start: 10-19-[address] PL[address] INTERMITTENT PNEUMATIC COMPRESSION DEVICE MOISE ARGUETA Start: 10-19-2017 REASON FOR NO CHEMICAL VTE PROPHYLAXIS MOISE ARGUETA Start: 10-19-2017 TELEMETRY MONITORING MOISE ARGUETA Start: 10-19-2017 TOBACCO CESSATION EDUCATION MOISE PERES Start: 10-19-2017 BEDREST WITH BATHROOM PRIVILEGES MOISE ARGUETA Start: 10-19-2017 FULL CODE MOISE ARGUETA Start: 10-19-2017 INTAKE AND OUTPUT MOISE ARGUETA Start: 10-19-2017 MISCELLANEOUS NURSING CARE ORDER (SPECIFY) MOISE ARGUETA Start: 10-19-2017 NOTIFY PHYSICIAN (SPECIFY) MOISE NICOLAS ON Start: 10-19-2017 VITAL SIGNS MOISE ARGUETA Start: 10-19-2017 INITIATE OXYGEN THERAPY PROTOCOL MOISE ARGUETA Start: 10-19-2017 PATIENT STATUS (FROM ED OR OR/PROCEDURAL) MOISE ARGUETA Start: 10-19-2017 Basic metabolic panel calcium total MOISE ARGUETA Start: 10-19-2017 HEMOGLOBIN AND HEMATOCRIT, BLOOD MOISE ARGUETA Start: 10-19-2017 TRANSFUSE RED BLOOD CELLS MOISE MILLER N Start: 10-19-2017 TRANSFUSE RED BLOOD CELLS MOISE MENDOZA N Start: 10-19-2017 PREPARE RBC (CROSSMATCH) MOISE ARGUETA Start: 10-19-2017 HEMOGLOBIN AND HEMATOCRIT, BLOOD MOISE ARGUETA Start: 10-18-2017 Radiologic exam chest single view MOISE ARGUETA Start: 10-18-2017 Assay of lipase MOISE ARGUETA Start: 10-18-2017 Blood count complete auto&auto difrntl wbc MOISE MENDOZADON Start: 10-18-2017 FERRITIN MOISE ARGUETA Start: 10-18-2017 Hepatic function panel MOISE ARGUETA Start: 10-18-2017 IRON AND TIBC MOISE ARGUETA Start: 10-18-2017 LACTIC ACID, WHOLE BLOOD MOISE ARGUETA Start: 10-18-2017 Prothrombin time MOISE ARGUETA Start: 10-18-2017 BLOOD BANK SPECIMEN MOISE ARGUETA Start: 10-18-2017 TYPE AND SCREEN MOISE ARGUETA Start: 10-18-2017 ORTHOSTATIC BLOOD PRESSURE AND PULSE MOISE ARGUETA Start: 10-18-2017 IP CONSULT TO GI MOISE ARGUETA Start: 10-18-2017 NOTIFY PHYSICIAN (SPECIFY) MOISE REJIGarett ON Start: 10-18-2017 OT EVAL AND TREAT MOISE ARGUETA Start: 10-18-2017 PT EVAL AND TREAT MOISE ARGUETA Start: 10-18-2017 INITIATE OXYGEN THERAPY PROTOCOL MOISE KENDALL Start: 10-18-2017 MISCELLANEOUS NURSING CARE ORDER (SPECIFY) MOISE ARGUETA Start: 10-18-[address] PL[address] INTERMITTENT PNEUMATIC COMPRESSION DEVICE MOISE ARGUETA Start: 10-18-2017 REASON FOR NO CHEMICAL VTE PROPHYLAXIS MOISE MENDOZADON Start: 10-18-2017 TOBACCO CESSATION EDUCATION MOISE MENDOZA JA Start: 10-18-2017 VITAL SIGNS MOISE KENDALL Start: 10-18-2017 MRSA DNA PROBE, NASAL MOISE ARGUETA Start: 10-18-2017 PATIENT STATUS (DIRECT) MOISE ARGUETA Start: 05-26-2017 Colonoscopy Ibrahima NILL Start: 05-26-2017 Esophagogastroduodenoscopy Ibrahima [employer] Dive Start: 02-09-2016 Substance abuse counseling Maureen Mitchell Other Start: 09-20-2014 General examination of patient Maureen boone Other Start: 09-20-2014 Screening mammography Maureen Mitchell Other Appendectomy Ibrahima NILL Circumferential body lift Mi chael NILL Excision of lumbar intervertebral disc Ibrahima [employer] Comment on above: L4-L5 Exploratory laparotomy Marty sincere NILL Maame-en-Y gastrojejunostomy Ibrahima Interventional SpineL Screening for malign ant neoplasm of breast Maureen Mitchell Other Total abdominal hyst erectomy with bilateral salpingo-oophorectomy Ibrahima [employer] Results Test Name Value Interpretation Reference Range Facility Basophils Auto (Bld) [#/Vol] on 11-10-2023 Basophils (Bld) [#/Vol] 0.0 10 3/uL 0.0-0.1 [facility] Basophils/100 WBC Auto (Bld) on 11-10-2023 Basophils/100 WBC (Bld) 0.5 % 0.2-2.0 [facility] Eosinophils/100 WBC Auto (Bl d)on 11-10-2023 Eosinophils/100 WBC (Bld) 0.1 % Low 0.9-7.0 [facility] Erythrocyte distribution wid th Auto (RBC) [Ratio]on 11-10-2023 Erythrocyte distribution width (RBC) [Ratio] 12.7 % 11.0-15.0 [facility] Estimated glomerular filtrat ion rate (GFR) non- Americanon 11-10-2023 GFR/1.73 sq M.predicted among non-blacks MDRD (S/P/Bld) [Vol rate/Area] 58 mL/min/{1.73_m2} Low >=60 [facility] Globulin Calc (S) [Mass/Vol] on 11-10-2023 Globulin (S) [Mass/Vol] 3.6 g/dL [facility] Hematocrit Auto (Bld) [Volum e fraction]on 11-10-2023 Hematocrit (Bld) [Volume fraction] 38.3 % 36.0-48.0 [facility] Hemoglobin [Mass/volume] in Bloodon 11-10-2023 Hemoglobin (Bld) [Mass/Vol] 13.2 g/dL 12.0-16.0 [facility] INR in Platelet poor plasma by Coagulation assayon 11-10-2023 INR Coag (PPP) [Relative time] {INR} [facility] Comment on above: DESIRED INR:2.0-3.0 CONDITIONS NOT LISTED BELOW2.5-3.5 FOR PROSTHETIC HEART VALVE REPLACEMENT2.5-3.5 RECURRENT THROMBOSIS Laboratory - Chemistry and C hemistry - challengeon 11-10-2023 Albumin [Mass/Vol] 3.0 g/dL Low 3.4-5.0 [facility] ALP [Catalytic activity/Vol] 232 U/L High 46-116 [facility] ALT [Catalytic activity/Vol] 23 U/L 14-59 [facility] AST [Catalytic activity/Vol] 82 U/L High 15-37 [facility] Bilirubin [Mass/Vol] 0.6 mg/dL 0.2-1.0 [facility] Calcium [Mass/Vol] 9.3 mg/dL 8.5-10.1 [facility] Chloride [Moles/Vol] 97 mmol/L Low 98-107 [facility] CO2 [Moles/Vol] 25.7 mmol/L 21.0-32.0 [facility] Creatinine [Mass/Vol] 0.99 mg/dL 0.55-1.02 [facility] GFR/1.73 sq M.predicted MDRD (S/P/Bld) [Vol rate/Area] mL/min/{1.73_m2} >=60 [facility] Glucose [Mass/Vol] 113 mg/dL High 74-106 [facility] Lipase [Catalytic activity/Vol] 16.0 U/L 16.0-77.0 [facility] Potassium [Moles/Vol] 3.0 mmol/L Low 3.5-5.1 [facility] Protein [Mass/Vol] 6.6 g/dL 6.4-8.2 [facility] Sodium [Moles/Vol] 133 mmol/L Low 136-145 [facility] Urea nitrogen [Mass/Vol] 4.0 mg/dL Low 7.0-18.0 [facility] Urea nitrogen/Creatinine [Mass ratio] 4.0 mg/mg [facility] Laboratory - Hematology and Cell countson 11-10-2023 Immature granulocytes/100 WBC (Bld) 0.4 % 0.0-0.5 [facility] Leukocytes [#/volume] correc patty for nucleated erythrocytes in Blood by Automated counon 11-10-2023 WBC corrected for nucl RBC Auto (Bld) [#/Vol] 7.3 10 3/uL 4.0-11.0 [facility] Lymphocytes Auto (Bld) [#/Vo l]on 11-10-2023 Lymphocytes (Bld) [#/Vol] 1.3 10 3/uL 1.2-3.8 [facility] Lymphocytes/100 WBC Auto (Bl d)on 11-10-2023 Lymphocytes/100 WBC (Bld) 17.4 % Low 20.5-60.0 [facility] MCH Auto (RBC) [Entitic mass ]on 11-10-2023 MCH (RBC) [Entitic mass] 38.2 pg High 26.7-34.0 [facility] MCHC Auto (RBC) [Mass/Vol]on 11-10-2023 MCHC (RBC) [Mass/Vol] 34.5 g/dL 29.9-35.2 [facility] MCV Auto (RBC) [Entitic vol] on 11-10-2023 MCV (RBC) [Entitic vol] 110.7 fL High 81.0-99.0 [facility] Monocytes Auto (Bld) [#/Vol] on 11-10-2023 Monocytes (Bld) [#/Vol] 0.5 10 3/uL 0.3-0.8 [facility] Monocytes/100 WBC Auto (Bld) on 11-10-2023 Monocytes/100 WBC (Bld) 6.7 % 1.7-12.0 [facility] Neutrophils Auto (Bld) [#/Vo l]on 11-10-2023 Neutrophils (Bld) [#/Vol] 5.5 10 3/uL 1.4-6.5 [facility] Neutrophils/100 WBC Auto (Bl d)on 11-10-2023 Neutrophils/100 WBC (Bld) 74.9 % 43.0-75.0 [facility] No Panel Informationon 11-09 Eosinophils # (Auto) 0.0 10 3/uL 0.0-0.7 [facility] Immature Granulocyte # (Auto) 0.03 10 3/uL 0.00-0.03 [facility] Stool Occult Blood Negative [facility] Troponin I High Sensitivity 11.2 pg/mL 4.0-51.3 [facility] Comment on above: CUT-OFF POINTS HAVE BEEN ESTABLISHED BASED ON THE FOURTHUNIVERSAL DEFINITION OF MYOCARDIAL INFARCTION. THE UPPERREFERENCE LIMIT (URL) OF TROPONIN, DEFINED THE 99THPERCENTILE OF cTnI DISTRIBUTION IN A REFERENCE POPULATION,HAS BEEN CONFIRMED THE DECISION THRESHOLD FOR MIDIAGNOSIS.99TH PERCENTILE = 51.4 PG/MLNOTE: HIGH-SENSITIVITY TROPONIN ASSAY IS NOT INTENDED TO BEUSED IN ISOLATION BUT SHOULD BE INTERPRETED IN CONJUNCTIONWITH OTHER DIAGNOSTIC AND CLINICAL INFORMATION. Platelet mean volume Auto (B ld) [Entitic vol]on 11-10-2023 Platelet mean volume (Bld) [Entitic vol] 9.8 fL 9.5-13.5 [facility] Platelets Auto (Bld) [#/Vol] on 11-10-2023 Platelets (Bld) [#/Vol] 305 10 3/uL 150-450 [facility] Prothrombin time (PT)on 10-24 PT Coag (PPP) [Time] 9.7 s 9.0-11.6 [facility] RBC Auto (Bld) [#/Vol]on RBC (Bld) [#/Vol] 3.46 10 6/uL Low 4.20-5.40 [facility] Serum or plasma albumin/glob ulin mass ratioon 11-10-2023 Albumin/Globulin [Mass ratio] 0.8 {ratio} [facility] Serum or plasma anion gap de terminationon 11-10-2023 Anion gap [Moles/Vol] 13.3 [facility] Basophils Auto (Bld) [#/Vol] on 09-03-2023 Basophils (Bld) [#/Vol] 0.0 10 3/uL 0.0-0.1 [facility] Basophils/100 WBC Auto (Bld) on 09-03-2023 Basophils/100 WBC (Bld) 0.4 % 0.2-2.0 [facility] Eosinophils/100 WBC Auto (Bl d)on 09-03-2023 Eosinophils/100 WBC (Bld) 0.4 % 0.9-7.0 [facility] Erythrocyte distribution wid th Auto (RBC) [Ratio]on 09-03-2023 Erythrocyte distribution width (RBC) [Ratio] 16.8 % 11.0-15.0 [facility] Estimated glomerular filtrat ion rate (GFR) non- Americanon 09-03-2023 GFR/1.73 sq M.predicted among non-blacks MDRD (S/P/Bld) [Vol rate/Area] 29 mL/min/{1.73_m2} >=60 [facility] Hematocrit Auto (Bld) [Volum e fraction]on 09-03-2023 Hematocrit (Bld) [Volume fraction] 36.0 % 36.0-48.0 [facility] Hemoglobin [Mass/volume] in Bloodon 09-03-2023 Hemoglobin (Bld) [Mass/Vol] 12.3 g/dL 12.0-16.0 [facility] Laboratory - Chemistry and C hemistry - challengeon 09-03-2023 Calcium [Mass/Vol] 9.3 mg/dL 8.5-10.1 [facility] Chloride [Moles/Vol] 98 mmol/L 98-107 [facility] CO2 [Moles/Vol] 23.8 mmol/L 21.0-32.0 [facility] Creatinine [Mass/Vol] 1.80 mg/dL 0.55-1.02 [facility] GFR/1.73 sq M.predicted MDRD (S/P/Bld) [Vol rate/Area] 36 mL/min/{1.73_m2} >=60 [facility] Glucose [Mass/Vol] 103 mg/dL 74-106 [facility] Potassium [Moles/Vol] 3.2 mmol/L 3.5-5.1 [facility] Sodium [Moles/Vol] 137 mmol/L 136-145 [facility] Urea nitrogen [Mass/Vol] 2.0 mg/dL 7.0-18.0 [facility] Urea nitrogen/Creatinine [Mass ratio] 1.1 mg/mg [facility] Laboratory - Hematology and Cell countson 09-03-2023 Immature granulocytes/100 WBC (Bld) 0.4 % 0.0-0.5 [facility] Leukocytes [#/volume] correc patty for nucleated erythrocytes in Blood by Automated counon 09-03-2023 WBC corrected for nucl RBC Auto (Bld) [#/Vol] 9.9 10 3/uL 4.0-11.0 [facility] Lymphocytes Auto (Bld) [#/Vo l]on 09-03-2023 Lymphocytes (Bld) [#/Vol] 1.7 10 3/uL 1.2-3.8 [facility] Lymphocytes/100 WBC Auto (Bl d)on 09-03-2023 Lymphocytes/100 WBC (Bld) 17.4 % 20.5-60.0 [facility] MCH Auto (RBC) [Entitic mass ]on 09-03-2023 MCH (RBC) [Entitic mass] 36.4 pg 26.7-34.0 [facility] MCHC Auto (RBC) [Mass/Vol]on 09-03-2023 MCHC (RBC) [Mass/Vol] 34.2 g/dL 29.9-35.2 [facility] MCV Auto (RBC) [Entitic vol] on 09-03-2023 MCV (RBC) [Entitic vol] 106.5 fL 81.0-99.0 [facility] Monocytes Auto (Bld) [#/Vol] on 09-03-2023 Monocytes (Bld) [#/Vol] 0.8 10 3/uL 0.3-0.8 [facility] Monocytes/100 WBC Auto (Bld) on 09-03-2023 Monocytes/100 WBC (Bld) 8.0 % 1.7-12.0 [facility] Neutrophils Auto (Bld) [#/Vo l]on 09-03-2023 Neutrophils (Bld) [#/Vol] 7.3 10 3/uL 1.4-6.5 [facility] Neutrophils/100 WBC Auto (Bl d)on 09-03-2023 Neutrophils/100 WBC (Bld) 73.4 % 43.0-75.0 [facility] No Panel Informationon 09-02 Eosinophils # (Auto) 0.0 10 3/uL 0.0-0.7 [facility] Immature Granulocyte # (Auto) 0.04 10 3/uL 0.00-0.03 [facility] Troponin I High Sensitivity 19.5 pg/mL 4.0-51.3 [facility] Comment on above: CUT-OFF POINTS HAVE BEEN ESTABLISHED BASED ON THE FOURTHUNIVERSAL DEFINITION OF MYOCARDIAL INFARCTION. THE UPPERREFERENCE LIMIT (URL) OF TROPONIN, DEFINED THE 99THPERCENTILE OF cTnI DISTRIBUTION IN A REFERENCE POPULATION,HAS BEEN CONFIRMED THE DECISION THRESHOLD FOR MIDIAGNOSIS.99TH PERCENTILE = 51.4 PG/MLNOTE: HIGH-SENSITIVITY TROPONIN ASSAY IS NOT INTENDED TO BEUSED IN ISOLATION BUT SHOULD BE INTERPRETED IN CONJUNCTIONWITH OTHER DIAGNOSTIC AND CLINICAL INFORMATION. Platelet mean volume Auto (B ld) [Entitic vol]on 09-03-2023 Platelet mean volume (Bld) [Entitic vol] 9.8 fL 9.5-13.5 [facility] Platelets Auto (Bld) [#/Vol] on 09-03-2023 Platelets (Bld) [#/Vol] 312 10 3/uL 150-450 [facility] RBC Auto (Bld) [#/Vol]on RBC (Bld) [#/Vol] 3.38 10 6/uL 4.20-5.40 [facility] Serum or plasma anion gap de terminationon 09-03-2023 Anion gap [Moles/Vol] 18.4 mmol/L [facility] CT ANGIO CORONARY ART WITH H JUANTFLOW IF SCORE >30%on 07-15-2023 CT ANGIO CORONARY ART WITH HEARTFLOW IF SCORE >30% Interpreted By: Ibrahima Zuleta, ADDENDUM: Technical: The study is performed as an over-read for a contrast-enhanced cardiac CT, to evaluate the extra vascular structures. Contiguous axial CT sections are performed from level the peter to the upper abdomen following the bolus administration of 75 cc of intravenous Omnipaque 350. Findings: The visualized portions of both lungs are clear. There is no sign of pathologic lymph node enlargement. There is no pericardial or pleural effusion. Images through the upper abdomen are unremarkable. Multiple healing right rib fractures are identified laterally. The visualized osseous and soft tissue structures of the chest wall are otherwise intact. Findings: The extra vascular structures have an unremarkable CT appearance. Signed by: Ibrahima Zuleta 07/15/2023 5:24 PM -------- ORIGINAL REPORT -------- Dictation workstation: [id number] Interpreted By: Ibrahima Merlos, STUDY: CT ANGIO CORONARY ART WITH HEARTFLOW IF SCORE >30%; 07/15/2023 12:36 pm INDICATION: Signs/Symptoms:chest pain,angina. COMPARISON: None. ACCESSION NUMBER(S): [id number] ORDERING CLINICIAN: QUAN HUNTER TECHNIQUE: Using multi-detector CT technology, Alvino 64-slice scanner, axial, sequential imaging with retrospective gating was performed of the chest following the intravenous administration of contrast material. A low-osmolar contrast agent was used 75 ml of Omnipaque 350. Using prospective ECG gating, CT scan of the coronary arteries was performed without intravenous contrast. Coronary calcium scoring was performed according to the method of Agatston. The patient was premedicated with atenolol and 0.4 mg sublingual nitroglycerin per protocol for heart rate control and coronary dilation, respectively. For optimization of anatomic evaluation, multiplanar reconstruction, maximum intensity projections, and advanced 3-D off-line postprocessing were performed on a dedicated stand-alone workstation under the direct supervision of the interpreting physician. CT Dose-Length Product (DLP): 766.3 mGy/cm CT Dose Reduction Employed: Yes iterative reconstruction FINDINGS: The left main is normal sized vessel that bifurcates into the LAD and circumflex. There is no significant atherosclerotic change or stenotic disease. LEFT ANTERIOR DESCENDING ARTERY: The LAD is a normal size vessel that wraps around the apex. Proximal calcified plaque without significant stenosis. LAD gives rise to 2 acute diagonal branches. D1: Small, normal. D2: Normal. LEFT CIRCUMFLEX ARTERY: The LCfx is a normal size vessel, which is codominant.In its distal segment it bifurcates into the PV branch. Proximal calcified plaque without significant stenosis. LCfx gives rise to 3 obtuse marginal branches. OM1 normal. OM2 normal. OM3 normal. There is no significant atherosclerotic change or stenotic disease. RIGHT CORONARY ARTERY: The RCA is a normal size vessel, which is dominant . It gives rise to a conus branch, nash branch, and 2 acute marginal branches. In its distal segment it bifurcates into the PDA branch. Distal noncalcified plaque without significant stenosis. Right PDA proximal noncalcified plaque without significant stenosis. Left PLV normal. Coronary artery calcium score 260, 99th percentile for age, gender, and race in asymptomatic patients. CARDIAC CHAMBERS: The cardiac chambers demonstrate normal atrioventricular and ventriculoarterial concordance, and systemic and pulmonary venous return. LEFT VENTRICLE: Normal size End diastolic volume 117 ml, 65 ml/m2 LEFT VENTRICLE MASS: 122 gm, 68 gm/m2 RIGHT VENTRICLE: Normal size End diastolic volume 137 ml, 76 ml/m2 LEFT ATRIUM: Normal size End systolic volume 91 ml, 50 ml/m2 RIGHT ATRIUM: Normal size End systolic volume 84 ml, 47 ml/m2 INTERATRIAL SEPTUM: Intact. AORTIC VALVE: The aortic valve is trileaflet in morphology. No calcifications. MITRAL VALVE: No thickening/calcification. THORACIC AORTA: Dilated aortic root 39 mm. There is no acute aortic pathology, such as dissection, intramural hematoma, or contained rupture. The aortic arch is not included on this examination. PERICARDIUM: There is no pericardial effusion of thickening. IMPRESSION: 1. Mild diffuse coronary artery disease without significant stenosis. 2. Coronary artery calcium score 260, 99th percentile for age, gender, and race in asymptomatic patients. [employer] Therapist: Dr. Ibrahima Merlos, Date: 07/15/2023 4:40 pm Signed by: Ibrahima Merlos 07/15/2023 4:43 PM Dictation workstation: [id number] [facility] Heart and Coronary arter ies WO and W contrast [place] 07-15-2023 Radiology Study observation (narrative) [facility] Work Phone: Addendum by Miriam Mireles MD on 07/15/2023 5:24 PM EST Interpreted By: Ibrahima Zuleta, ADDENDUM: Technical: The study is performed as an over-read for a contrast-enhanced cardiac CT, to evaluate the extra vascular structures. Contiguous axial CT sections are performed from level the peter to the upper abdomen following the bolus administration of 75 cc of intravenous Omnipaque 350. Findings: The visualized portions of both lungs are clear. There is no sign of pathologic lymph node enlargement. There is no pericardial or pleural effusion. Images through the upper abdomen are unremarkable. Multiple healing right rib fractures are identified laterally. The visualized osseous and soft tissue structures of the chest wall are otherwise intact. Findings: The extra vascular structures have an unremarkable CT appearance. Signed by: Ibrahima Zuleta 07/15/2023 5:24 PM -------- ORIGINAL REPORT -------- Dictation workstation: [id number] [facility] Work Phone: 1. Mild diffuse po nary artery disease without significant stenosis. 2. Coronary artery calcium score 260, 99th percentile for age, gender, and race in asymptomatic patients. [employer] Therapist: Dr. Ibrahima Merlos, Date: 07/15/2023 4:40 pm Signed by: Ibrahima Merlos 07/15/2023 4:43 PM Dictation workstation: [id number] Interpreted By: Ibrahima Avery, STUDY: CT ANGIO CORONARY ART WITH HEARTFLOW IF SCORE >30%; 07/15/2023 12:36 pm INDICATION: Signs/Symptoms:chest pain,angina. COMPARISON: None. ACCESSION NUMBER(S): [id number] ORDERING CLINICIAN: QUAN HUNTER TECHNIQUE: Using multi-detector CT technology, Alvino 64-slice scanner, axial, sequential imaging with retrospective gating was performed of the chest following the intravenous administration of contrast material. A low-osmolar contrast agent was used 75 ml of Omnipaque 350. Using prospective ECG gating, CT scan of the coronary arteries was performed without intravenous contrast. Coronary calcium scoring was performed according to the method of Agatston. The patient was premedicated with atenolol and 0.4 mg sublingual nitroglycerin per protocol for heart rate control and coronary dilation, respectively. For optimization of anatomic evaluation, multiplanar reconstruction, maximum intensity projections, and advanced 3-D off-line postprocessing were performed on a dedicated stand-alone workstation under the direct supervision of the interpreting physician. CT Dose-Length Product (DLP): 766.3 mGy/cm CT Dose Reduction Employed: Yes iterative reconstruction FINDINGS: The left main is normal sized vessel that bifurcates into the LAD and circumflex. There is no significant atherosclerotic change or stenotic disease. LEFT ANTERIOR DESCENDING ARTERY: The LAD is a normal size vessel that wraps around the apex. Proximal calcified plaque without significant stenosis. LAD gives rise to 2 acute diagonal branches. D1: Small, normal. D2: Normal. LEFT CIRCUMFLEX ARTERY: The LCfx is a normal size vessel, which is codominant.In its distal segment it bifurcates into the PV branch. Proximal calcified plaque without significant stenosis. LCfx gives rise to 3 obtuse marginal branches. OM1 normal. OM2 normal. OM3 normal. There is no significant atherosclerotic change or stenotic disease. RIGHT CORONARY ARTERY: The RCA is a normal size vessel, which is dominant . It gives rise to a conus branch, nash branch, and 2 acute marginal branches. In its distal segment it bifurcates into the PDA branch. Distal noncalcified plaque without significant stenosis. Right PDA proximal noncalcified plaque without significant stenosis. Left PLV normal. Coronary artery calcium score 260, 99th percentile for age, gender, and race in asymptomatic patients. CARDIAC CHAMBERS: The cardiac chambers demonstrate normal atrioventricular and ventriculoarterial concordance, and systemic and pulmonary venous return. LEFT VENTRICLE: Normal size End diastolic volume 117 ml, 65 ml/m2 LEFT VENTRICLE MASS: 122 gm, 68 gm/m2 RIGHT VENTRICLE: Normal size End diastolic volume 137 ml, 76 ml/m2 LEFT ATRIUM: Normal size End systolic volume 91 ml, 50 ml/m2 RIGHT ATRIUM: Normal size End systolic volume 84 ml, 47 ml/m2 INTERATRIAL SEPTUM: Intact. AORTIC VALVE: The aortic valve is trileaflet in morphology. No calcifications. MITRAL VALVE: No thickening/calcification. THORACIC AORTA: Dilated aortic root 39 mm. There is no acute aortic pathology, such as dissection, intramural hematoma, or contained rupture. The aortic arch is not included on this examination. PERICARDIUM: There is no pericardial effusion of thickening. [facility] MMODAL Ibrahima Merlos D O / Miriam Zuleta MD - 07/15/2023 Interpreted By: Ibrahima Merlos, STUDY: CT ANGIO CORONARY ART WITH HEARTFLOW IF SCORE >30%; 07/15/2023 12:36 pm INDICATION: Signs/Symptoms:chest pain,angina. COMPARISON: None. ACCESSION NUMBER(S): [id number] ORDERING CLINICIAN: QUAN HUNTER TECHNIQUE: Using multi-detector CT technology, Alvino 64-slice scanner, axial, sequential imaging with retrospective gating was performed of the chest following the intravenous administration of contrast material. A low-osmolar contrast agent was used 75 ml of Omnipaque 350. Using prospective ECG gating, CT scan of the coronary arteries was performed without intravenous contrast. Coronary calcium scoring was performed according to the method of Agatston. The patient was premedicated with atenolol and 0.4 mg sublingual nitroglycerin per protocol for heart rate control and coronary dilation, respectively. For optimization of anatomic evaluation, multiplanar reconstruction, maximum intensity projections, and advanced 3-D off-line postprocessing were performed on a dedicated stand-alone workstation under the direct supervision of the interpreting physician. CT Dose-Length Product (DLP): 766.3 mGy/cm CT Dose Reduction Employed: Yes iterative reconstruction FINDINGS: The left main is normal sized vessel that bifurcates into the LAD and circumflex. There is no significant atherosclerotic change or stenotic disease. LEFT ANTERIOR DESCENDING ARTERY: The LAD is a normal size vessel that wraps around the apex. Proximal calcified plaque without significant stenosis. LAD gives rise to 2 acute diagonal branches. D1: Small, normal. D2: Normal. LEFT CIRCUMFLEX ARTERY: The LCfx is a normal size vessel, which is codominant.In its distal segment it bifurcates into the PV branch. Proximal calcified plaque without significant stenosis. LCfx gives rise to 3 obtuse marginal branches. OM1 normal. OM2 normal. OM3 normal. There is no significant atherosclerotic change or stenotic disease. RIGHT CORONARY ARTERY: The RCA is a normal size vessel, which is dominant . It gives rise to a conus branch, nash branch, and 2 acute marginal branches. In its distal segment it bifurcates into the PDA branch. Distal noncalcified plaque without significant stenosis. Right PDA proximal noncalcified plaque without significant stenosis. Left PLV normal. Coronary artery calcium score 260, 99th percentile for age, gender, and race in asymptomatic patients. CARDIAC CHAMBERS: The cardiac chambers demonstrate normal atrioventricular and ventriculoarterial concordance, and systemic and pulmonary venous return. LEFT VENTRICLE: Normal size End diastolic volume 117 ml, 65 ml/m2 LEFT VENTRICLE MASS: 122 gm, 68 gm/m2 RIGHT VENTRICLE: Normal size End diastolic volume 137 ml, 76 ml/m2 LEFT ATRIUM: Normal size End systolic volume 91 ml, 50 ml/m2 RIGHT ATRIUM: Normal size End systolic volume 84 ml, 47 ml/m2 INTERATRIAL SEPTUM: Intact. AORTIC VALVE: The aortic valve is trileaflet in morphology. No calcifications. MITRAL VALVE: No thickening/calcification. THORACIC AORTA: Dilated aortic root 39 mm. There is no acute aortic pathology, such as dissection, intramural hematoma, or contained rupture. The aortic arch is not included on this examination. PERICARDIUM: There is no pericardial effusion of thickening. IMPRESSION: 1. Mild diffuse coronary artery disease without significant stenosis. 2. Coronary artery calcium score 260, 99th percentile for age, gender, and race in asymptomatic patients. [employer] Therapist: Dr. Ibrahima Merlos, Date: 07/15/2023 4:40 pm Signed by: Ibrahima Merlos 07/15/2023 4:43 PM Dictation workstation: [id number] [facility] Work Phone: CTA Heart and Coronary arter ies WO and W contrast IVOrdered By: Miriam Zuleta on 07-15-2023 [facility] Work Phone: Creatinine [Mass/Vol]on 06-27 GFR/1.73 sq M.predicted MDRD (S/P/Bld) [Vol rate/Area] mL/min/{1.73_m2} Normal >=60 [facility] Comment on above: Result Comment: Calc ulations of estimated GFR are performed using the 2020 CKD-EPI Study Refit ???equation without the race variable for the IDMS-Traceable Creatinine Methods. https://jasn.asnjournals.org/content/earlyASN.39730 53629 Performed By: #### 2 160-0 #### MIGUEL BRADLEY ([id number]) [facility] ([facility]) [address] [place] [address] GFR/1.73 sq M.predicted MDRD (S/P/Bld) [Vol rate/Area] - [facility] Comment on above: Calculations of martin mated GFR are performed using the 2020 CKD-EPI Study Refit equation without the race variable for the IDMS-Traceable Creatinine Methods. https://jasn.asnjournals.org/content/earlyASN.98532 78332 Interpretation and review of laboratory results Normal [facility] - Chemistry and C hemistry - challengeon 07-15-2023 Creatinine [Mass/Vol] 0.7 mg/dL Normal 0.6-1.3 [facility] Comment on above: Hydroxyurea can caus e significant interference with creatinine measurement using the i-STAT device. An alternate method of creatinine measurement must be used in patients treated with hydroxyurea. Result Comment: Hydr oxyurea can cause significant interference with creatinine measurement using the i-STAT device. An alternate method of creatinine measurement must be used in patients treated with hydroxyurea. Performed By: #### 2 160-0 #### MIGUEL BRADLEY ([id number]) [facility] ([facility]) [address] [place] [id number] TRANSTHORACIC ECHO (TTE) COM PLETEon 06-13-2023 TRANSTHORACIC ECHO (TTE) COMPLETE [address], [address] [place] [id number] TRANSTHORACIC ECHOCARDIOGRAM REPORT Patient Name: CANDY BOOTH Reading Physician: [id number] Serra DO Study Date: 06/13/2023 Ordering Provider: [id number] QUAN HUNTER MRN/PID: [id number] Fellow: Nurse: Date of /Age: 5 1970 / 52 years Computer Equipment Installer: Ibrahima Valdes Gender: F Additional Staff: Height: 162.56 cm Admit Date: 06/13/2023 Weight: 86.18 kg Admission Status: Outpatient BSA: 1.91 m2 Department Location: [facility] Blood Pressure: 110 /60 mmHg Study Type: TRANSTHORACIC ECHO (TTE) COMPLETE Diagnosis/ICD: Shortness of breath-R06.02; Endocarditis, valve unspecified-I38 Indication: SOB, HV Disease, Dizziness, AO Dilation CPT Codes: Echo Complete w Full Doppler-[id number] Patient History: Smoker: Current. Pertinent History: HTN and SoB, HV Disease, Dizziness, AO Dilation. Study Detail: The following Echo studies were performed: 2D, M-Mode, Doppler and color flow. The patient was awake. PHYSICIAN INTERPRETATION: Left Ventricle: Left ventricular systolic function is low normal, with an estimated ejection fraction of 50%. Wall motion is abnormal. The left ventricular cavity size is normal. The left ventricular septal wall thickness is moderately increased. Spectral Doppler shows an impaired relaxation pattern of left ventricular diastolic filling. 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 LV Wall Scoring: The apical septal segment and apex are akinetic. The apical lateral segment, apical anterior segment, and apical inferior segment are hypokinetic. Left Atrium: The left atrium is normal in size. Right Ventricle: The right ventricle is mildly enlarged. There is normal right ventricular global systolic function. Right Atrium: The right atrium is normal in size. Aortic Valve: The aortic valve appears structurally normal. The aortic valve appears tricuspid. There is mild aortic valve cusp calcification. There is no evidence of aortic valve stenosis. There is moderate aortic valve regurgitation. The peak instantaneous gradient of the aortic valve is 4.7 mmHg. The mean gradient of the aortic valve is 3.0 mmHg. Mitral Valve: The mitral valve is normal in structure. There is no evidence of mitral valve stenosis. The doppler estimated mean and peak diastolic pressure gradients are 2.0 mmHg and 2.4 mmHg respectively. There is normal mitral valve leaflet mobility. There is mild to moderate mitral valve regurgitation. Tricuspid Valve: The tricuspid valve is structurally normal. There is normal tricuspid valve leaflet mobility. There is mild to moderate tricuspid regurgitation. Pulmonic Valve: The pulmonic valve is structurally normal. There is trace pulmonic valve regurgitation. Pericardium: There is no pericardial effusion noted. Aorta: The aortic root is normal. There is mild dilatation of the aortic root. Pulmonary Artery: The tricuspid regurgitant velocity is 2.85 m/s, and with an estimated right atrial pressure of 3 mmHg, the estimated pulmonary artery pressure is mild to moderately elevated with the RVSP at 35.5 mmHg. Systemic Veins: The inferior vena cava appears to be of normal size. In comparison to the previous echocardiogram(s): There are no prior studies on this patient for comparison purposes. CONCLUSIONS: 1. Left ventricular systolic function is low normal with a 50% estimated ejection fraction. 2. Multiple segmental abnormalities exist. See findings. 3. Moderately increased left ventricular septal thickness. 4. Spectral Doppler shows an impaired relaxation pattern of left ventricular diastolic filling. 5. There is no evidence of mitral valve stenosis. 6. Mild to moderate mitral valve regurgitation. 7. Mild to moderate tricuspid regurgitation. 8. Aortic valve stenosis is not present. 9. Moderate aortic valve regurgitation. 10. Mild to moderately elevated pulmonary artery pressure. 11. Valsalva measurement taken after reoprt pages possible MR? 4.5cm/s PPG 82mmHg MPG 43mmHg. 12. 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 QUANTITATIVE DATA SUMMARY: 2D MEASUREMENTS: Normal Ranges: Ao Root d: 3.30 cm (2.0-3.7cm) LAs: 3.30 cm (2.7-4.0cm) RVIDd: 2.90 cm (0.9-3.6cm) IVSd: 1.10 cm (0.6-1.1cm) LVPWd: 1.10 cm (0.6-1.1cm) LVIDd: 4.20 cm (3.9-5.9cm) LVIDs: 2.90 cm LV Mass Index: 82.1 g/m2 LV % FS 31.0 % LA VOLUME: Normal Ranges: LA Area A4C: 12.7 cm2 LA Area A2C: 13.9 cm2 LA Volume Index: 17.8 ml/m2 LA Vol A4C: 31.0 ml LA Vol A2C: 35.0 ml LA Vol BP: 34.0 ml RA VOLUME BY A/L METHOD: Normal Ranges: RA Vol A4C: 30.9 ml (8.3-19.5ml) RA Vol Index A4C: 16.1 ml/m2 RA Area A4C: 12.5 cm2 RA [place] A4C: 4.3 cm AORTA MEASUREMENTS: Normal Ranges: Asc Ao, d: 4.10 cm (2.1-3.4cm) LV SYSTOLIC FUNCT (more content not included)... Normal [facility] Heart TransthoracicOrdere d By: Ibrahima Serra on 06-13-2023 Aortic Valve Area by Continuity of Peak Velocity 3.48 cm2 [facility] Work Phone: Aortic Valve Area by Continuity of VTI 3.57 cm2 [facility] Work Phone: AV mn grad 3.0 mmHg [facility] Work Phone: AV pk grad 4.7 mmHg [facility] Work Phone: AV pk liya 1.08 m/s [facility] Work Phone: LV A4C EF 55.8 [facility] Work Phone: LV biplane EF 56 % [facility] Work Phone: LVIDd 4.20 cm [facility] Work Phone: LVOT diam 2.20 cm [facility] Work Phone: MV avg E/e' ratio 4.90 [facility] Work Phone: MV E/A ratio 0.62 [facility] Work Phone: RVSP 35.5 mmHg [facility] Work Phone: [facility] Work Phone: [facility] [address], [address], [place] [address] TRANSTHORACIC ECHOCARDIOGRAM REPORT Patient Name: CANDY Mckee Physician: [id number] Ibrahima Serra DO Study Date: 06/13/2023 Ordering Provider: [id number] QUAN HUNTER MRN/PID: [id number] Fellow: Nurse: Date of /Age: 5 1970 / 52 years Computer Equipment Installer: Ibrahima Valdes Gender: F Additional Staff: Height: 162.56 cm Admit Date: 06/13/2023 Weight: 86.18 kg Admission Status: Outpatient BSA: 1.91 m2 Department Location: [facility] Blood Pressure: 110 /60 mmHg Study Type: TRANSTHORACIC ECHO (TTE) COMPLETE Diagnosis/ICD: Shortness of breath-R06.02; Endocarditis, valve unspecified-I38 Indication: SOB, HV Disease, Dizziness, AO Dilation CPT Codes: Echo Complete w Full Doppler-[id number] Patient History: Smoker: Current. Pertinent History: HTN and SoB, HV Disease, Dizziness, AO Dilation. Study Detail: The following Echo studies were performed: 2D, M-Mode, Doppler and color flow. The patient was awake. PHYSICIAN INTERPRETATION: Left Ventricle: Left ventricular systolic function is low normal, with an estimated ejection fraction of 50%. Wall motion is abnormal. The left ventricular cavity size is normal. The left ventricular septal wall thickness is moderately increased. Spectral Doppler shows an impaired relaxation pattern of left ventricular diastolic filling. 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 LV Wall Scoring: The apical septal segment and apex are akinetic. The apical lateral segment, apical anterior segment, and apical inferior segment are hypokinetic. Left Atrium: The left atrium is normal in size. Right Ventricle: The right ventricle is mildly enlarged. There is normal right ventricular global systolic function. Right Atrium: The right atrium is normal in size. Aortic Valve: The aortic valve appears structurally normal. The aortic valve appears tricuspid. There is mild aortic valve cusp calcification. There is no evidence of aortic valve stenosis. There is moderate aortic valve regurgitation. The peak instantaneous gradient of the aortic valve is 4.7 mmHg. The mean gradient of the aortic valve is 3.0 mmHg. Mitral Valve: The mitral valve is normal in structure. There is no evidence of mitral valve stenosis. The doppler estimated mean and peak diastolic pressure gradients are 2.0 mmHg and 2.4 mmHg respectively. There is normal mitral valve leaflet mobility. There is mild to moderate mitral valve regurgitation. Tricuspid Valve: The tricuspid valve is structurally normal. There is normal tricuspid valve leaflet mobility. There is mild to moderate tricuspid regurgitation. Pulmonic Valve: The pulmonic valve is structurally normal. There is trace pulmonic valve regurgitation. Pericardium: There is no pericardial effusion noted. Aorta: The aortic root is normal. There is mild dilatation of the aortic root. Pulmonary Artery: The tricuspid regurgitant velocity is 2.85 m/s, and with an estimated right atrial pressure of 3 mmHg, the estimated pulmonary artery pressure is mild to moderately elevated with the RVSP at 35.5 mmHg. Systemic Veins: The inferior vena cava appears to be of normal size. In comparison to the previous echocardiogram(s): There are no prior studies on this patient for comparison purposes. CONCLUSIONS: 1. Left ventricular systolic function is low normal with a 50% estimated ejection fraction. 2. Multiple segmental abnormalities exist. See findings. 3. Moderately increased left ventricular septal thickness. 4. Spectral Doppler shows an impaired relaxation pattern of left ventricular diastolic filling. 5. There is no evidence of mitral valve stenosis. 6. Mild to moderate mitral valve regurgitation. 7. Mild to moderate tricuspid regurgitation. 8. Aortic valve stenosis is not present. 9. Moderate aortic valve regurgitation. 10. Mild to moderately elevated pulmonary artery pressure. 11. Valsalva measurement taken after reoprt pages possible MR? 4.5cm/s PPG 82mmHg MPG 43mmHg. 12. 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 QUANTITATIVE DATA SUMMARY: 2D MEASUREMENTS: Normal Ranges: Ao Root d: 3.30 cm (2.0-3.7cm) LAs: 3.30 cm (2.7-4.0cm) RVIDd: 2.90 cm (0.9-3.6cm) IVSd: 1.10 cm (0.6-1.1cm) LVPWd: 1.10 cm (0.6-1 (more content not included)... Ibrahima Meyer DO - 06/13/[address], [address], [place] [address] TRANSTHORACIC ECHOCARDIOGRAM REPORT Patient Name: CANDY BOOTH Reading Physician: [id number] Ibrahima Serra DO Study Date: 06/13/2023 Ordering Provider: [id number] QUAN HUNTER MRN/PID: [id number] Fellow: Nurse: Date of /Age: 5 1970 / 52 years Computer Equipment Installer: Ibrahima Valdes Gender: F Additional Staff: Height: 162.56 cm Admit Date: 06/13/2023 Weight: 86.18 kg Admission Status: Outpatient BSA: 1.91 m2 Department Location: [facility] Blood Pressure: 110 /60 mmHg Study Type: TRANSTHORACIC ECHO (TTE) COMPLETE Diagnosis/ICD: Shortness of breath-R06.02; Endocarditis, valve unspecified-I38 Indication: SOB, HV Disease, Dizziness, AO Dilation CPT Codes: Echo Complete w Full Doppler-[id number] Patient History: Smoker: Current. Pertinent History: HTN and SoB, HV Disease, Dizziness, AO Dilation. Study Detail: The following Echo studies were performed: 2D, M-Mode, Doppler and color flow. The patient was awake. PHYSICIAN INTERPRETATION: Left Ventricle: Left ventricular systolic function is low normal, with an estimated ejection fraction of 50%. Wall motion is abnormal. The left ventricular cavity size is normal. The left ventricular septal wall thickness is moderately increased. Spectral Doppler shows an impaired relaxation pattern of left ventricular diastolic filling. 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 LV Wall Scoring: The apical septal segment and apex are akinetic. The apical lateral segment, apical anterior segment, and apical inferior segment are hypokinetic. Left Atrium: The left atrium is normal in size. Right Ventricle: The right ventricle is mildly enlarged. There is normal right ventricular global systolic function. Right Atrium: The right atrium is normal in size. Aortic Valve: The aortic valve appears structurally normal. The aortic valve appears tricuspid. There is mild aortic valve cusp calcification. There is no evidence of aortic valve stenosis. There is moderate aortic valve regurgitation. The peak instantaneous gradient of the aortic valve is 4.7 mmHg. The mean gradient of the aortic valve is 3.0 mmHg. Mitral Valve: The mitral valve is normal in structure. There is no evidence of mitral valve stenosis. The doppler estimated mean and peak diastolic pressure gradients are 2.0 mmHg and 2.4 mmHg respectively. There is normal mitral valve leaflet mobility. There is mild to moderate mitral valve regurgitation. Tricuspid Valve: The tricuspid valve is structurally normal. There is normal tricuspid valve leaflet mobility. There is mild to moderate tricuspid regurgitation. Pulmonic Valve: The pulmonic valve is structurally normal. There is trace pulmonic valve regurgitation. Pericardium: There is no pericardial effusion noted. Aorta: The aortic root is normal. There is mild dilatation of the aortic root. Pulmonary Artery: The tricuspid regurgitant velocity is 2.85 m/s, and with an estimated right atrial pressure of 3 mmHg, the estimated pulmonary artery pressure is mild to moderately elevated with the RVSP at 35.5 mmHg. Systemic Veins: The inferior vena cava appears to be of normal size. In comparison to the previous echocardiogram(s): There are no prior studies on this patient for comparison purposes. CONCLUSIONS: 1. Left ventricular systolic function is low normal with a 50% estimated ejection fraction. 2. Multiple segmental abnormalities exist. See findings. 3. Moderately increased left ventricular septal thickness. 4. Spectral Doppler shows an impaired relaxation pattern of left ventricular diastolic filling. 5. There is no evidence of mitral valve stenosis. 6. Mild to moderate mitral valve regurgitation. 7. Mild to moderate tricuspid regurgitation. 8. Aortic valve stenosis is not present. 9. Moderate aortic valve regurgitation. 10. Mild to moderately elevated pulmonary artery pressure. 11. Valsalva measurement taken after reoprt pages possible MR? 4.5cm/s PPG 82mmHg MPG 43mmHg. 12. 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 QUANTITATIVE DATA SUMMARY: 2D MEASUREMENTS: Normal Ranges: Ao Root d: 3.30 cm (2.0-3.7cm) LAs: 3.30 cm (2.7-4.0cm) RVIDd: 2.90 cm (0.9-3.6cm) IVSd: 1.10 cm (0.6-1.1cm) LVPWd: 1.10 cm (0.6-1.1cm) LVIDd: 4.20 cm (3.9-5.9cm) LVIDs: 2.90 cm LV Mass Index: 82.1 g/m2 LV % FS 31.0 % LA VOLUME: Normal Ranges: LA Area A4C: 12.7 cm2 LA Area A2C: 13.9 cm2 LA Volume Index: 17.8 ml/m2 LA Vol A4C: 31.0 ml LA Vol A2C: 35.0 ml LA Vol BP: 34.0 ml RA VOLUME BY A/L METHOD: Normal Ranges: RA Vol A4C: 30.9 ml (8.3-19.5ml) RA Vol Index A4C: 16.1 ml/m2 RA Area A4C: 12.5 cm2 RA Cornelius (more content not included)... [facility] Work Phone: Auth for Release of Medical Recordson 07-02-2022 Auth for Release of Medical Records [id number]:[id number] Normal [facility] PROF 14(COMP METB)on 022 Albumin [Mass/Vol] 4.2 g/dL Normal 3.4-5.[address] [facility] Comment on above: Performed By: #### C MP #### [facility] [address] [place] [address] Dr. Leonides Anders Albumin/Globulin [Mass ratio] 1.3 {ratio} Normal [facility] Comment on above: Performed By: #### C MP #### [facility] [address] [place] [address] Dr. Leonides Anders ALP [Catalytic activity/Vol] 90 U/L Normal 46-[address] [facility] Comment on above: Performed By: #### C MP #### [facility] [address] [place] [address] Dr. Leonides Anders ALT [Catalytic activity/Vol] 25 U/L Normal 14-[address] [facility] Comment on above: Performed By: #### C MP #### [facility] [address] [place] [address] Dr. Leonides Anders Anion gap [Moles/Vol] 12.1 mmol/L Normal [facility] Comment on above: Performed By: #### C MP #### [facility] [address] [place] [address] Dr. Leonides Anders AST [Catalytic activity/Vol] 20 U/L Normal 15-[address] [facility] Comment on above: Performed By: #### C MP #### [facility] [address] [place] [address] Dr. Leonides Anders Bilirubin [Mass/Vol] 0.3 mg/dL Normal 0.2-1.[address] [facility] Comment on above: Performed By: #### C MP #### [facility] [address] [place] [address] Dr. Leonides Anders Calcium [Mass/Vol] 9.4 mg/dL Normal 8.5-10.[address] [facility] Comment on above: Performed By: #### C MP #### [facility] [address] [place] [address] [address] Leonides Anders Chloride [Moles/Vol] 99 mmol/L Normal 98-107 [facility] Comment on above: Performed By: #### C MP #### [facility] [address] [place] [address] Dr. Leonides Anders CO2 [Moles/Vol] 26.2 mmol/L Normal 21.0-32.[address] [facility] Comment on above: Performed By: #### C MP #### [facility] [address] [place] [address] Dr. Leonides Anders Creatinine [Mass/Vol] 0.68 mg/dL Normal 0.55-1.[address] [facility] Comment on above: Performed By: #### C MP #### [facility] [address] [place] [address] Dr. Leonides Anders EGFR-AF CYPRIOT >60 Normal >=60 [facility] Comment on above: Performed By: #### C MP #### [facility] [address] [place] [address] Dr. Leonides Anders EGFR-NON AF CYPRIOT >60 Normal >=60 [facility] Comment on above: Performed By: #### C MP #### [facility] [address] [place] [address] Dr. Leonides Anders Globulin (S) [Mass/Vol] 3.3 g/dL Normal [facility] Comment on above: Performed By: #### C MP #### [facility] [address] [place] [address] Dr. Leonides Anders Glucose [Mass/Vol] 97 mg/dL Normal 74-106 [facility] Comment on above: Performed By: #### C MP #### [facility] [address] [address] [address] Leonides Anders Potassium [Moles/Vol] 4.3 mmol/L Normal 3.5-5.[address] [facility] Comment on above: Performed By: #### C MP #### [facility] [address] [address] [address] Leonides Anders Protein [Mass/Vol] 7.5 g/dL Normal 6.4-8.[address] [facility] Comment on above: Performed By: #### C MP #### [facility] [address] [place] [address] Dr. Leonides Anders Sodium [Moles/Vol] 133 mmol/L Critically low 136-145 [facility] Comment on above: Performed By: #### C MP #### [facility] [address] [place] [address] Dr. Leonides Anders Urea nitrogen [Mass/Vol] 10.0 mg/dL Normal 7.0-18.[address] [facility] Comment on above: Performed By: #### C MP #### [facility] [address] [place] [address] Dr. Leonides Anders Urea nitrogen/Creatinine [Mass ratio] 14.7 mg/mg Normal [facility] Comment on above: Performed By: #### C MP #### [facility] [address] [place] [address] Dr. Leonides Anders CBC AUTO DIFFon 03-25-2022 BASO # 0.1 103/ul Normal 0.0-0.[address] [facility] Comment on above: Performed By: #### C BC #### [facility] [address] [place] [address] Dr. Leonides Anders Basophils/100 WBC (Bld) 0.5 % Normal 0.2-2.[address] [facility] Comment on above: Performed By: #### C BC #### [facility] [address] [place] [address] Dr. Leonides Anders EO # 0.1 103/ul Normal 0.0-0.[address] [facility] Comment on above: Performed By: #### C BC #### [facility] [address] [place] [address] Dr. Leonides Anders Eosinophils/100 WBC (Bld) 1.1 % Normal 0.9-7.[address] [facility] Comment on above: Performed By: #### C BC #### [facility] [address] [place] [address] Dr. Leonides Anders Erythrocyte distribution width (RBC) [Ratio] 12.9 % Normal 11.0-15.[address] [facility] Comment on above: Performed By: #### C BC #### [facility] [address] [place] [address] Dr. Leonides Anders Hematocrit (Bld) [Volume fraction] 38.8 % Normal 36.0-48.[address] [facility] Comment on above: Performed By: #### C BC #### [facility] [address] [place] [address] Dr. Leonides Anders Hemoglobin (Bld) [Mass/Vol] 13.8 g/dL Normal 12.0-16.[address] [facility] Comment on above: Performed By: #### C BC #### [facility] [address] [place] [address] Dr. Leonides Anders IG # 0.03 10e3/ul Normal 0.00-0.[address] [facility] Comment on above: Performed By: #### C BC #### [facility] [address] [place] [address] Dr. Leonides Anders IG % 0.3 % Normal 0.0-0.5 [facility] Comment on above: Performed By: #### C BC #### [facility] [address] [place] [address] Dr. Leoindes Anders LYMPH # 2.5 103/ul Normal 1.2-3.8 [facility] Comment on above: Performed By: #### C BC #### [facility] [address] [place] [address] Dr. Leonides Anders Lymphocytes/100 WBC (Bld) 26.5 % Normal 20.5-60.[address] [facility] Comment on above: Performed By: #### C BC #### [facility] [address] [place] [address] Dr. Leonides Anders MANUAL DIFF REQ NO Normal [facility] Comment on above: Performed By: #### C BC #### [facility] [address] [place] [address] Dr. Leonides Anders MCH (RBC) [Entitic mass] 32.0 pg Normal 26.7-34.[address] [facility] Comment on above: Performed By: #### C BC #### [facility] [address] [place] [address] Dr. Leonides Anders MCHC (RBC) [Mass/Vol] 35.6 g/dL Critically high 29.9-35.[address] [facility] Comment on above: Performed By: #### C BC #### [facility] [address] [place] [address] Dr. Leonides Anders MCV (RBC) [Entitic vol] 90.0 fL Normal 81.0-99.[address] [facility] Comment on above: Performed By: #### C BC #### [facility] [address] [place] [address] Dr. Leonides Anders MONO # 0.9 103/ul Critically high 0.3-0.[address] [facility] Comment on above: Performed By: #### C BC #### [facility] [address] [place] [address] Dr. Leonides Anders Monocytes/100 WBC (Bld) 9.8 % Normal 1.7-12.[address] [facility] Comment on above: Performed By: #### C BC #### [facility] [address] [place] [address] Dr. Leonides Anders NEUT # 5.8 103/ul Normal 1.4-6.5 [facility] Comment on above: Performed By: #### C BC #### [facility] [address] [place] [address] Dr. Leonides Anders Neutrophils/100 WBC (Bld) 61.8 % Normal 43.0-75.0 [facility] Comment on above: Performed By: #### C BC #### [facility] [address] [address] [address] Leonides Anders Platelet mean volume (Bld) [Entitic vol] 9.5 fL Normal 9.5-13.[address] [facility] Comment on above: Performed By: #### C BC #### [facility] [address] [address] [address] Leonides Anders PLT 255 103/ul Normal 150-450 [facility] Comment on above: Performed By: #### C BC #### [facility] [address] [place] [address] Dr. Leonides Anders RBC 4.31 106/ul Normal 4.20-5.[address] [facility] Comment on above: Performed By: #### C BC #### [facility] [address] [place] [address] Dr. Leonides Anders WBC 9.4 103/ul Normal 4.0-11.[address] [facility] Comment on above: Performed By: #### C BC #### [facility] [address] [place] [address] Dr. Leonides Anders PROF CHEM 8 (BAS METB)on Anion gap [Moles/Vol] 15.7 mmol/L Normal [facility] Comment on above: Performed By: #### B MP #### [facility] [address] [place] [address] Dr. Leonides Anders Calcium [Mass/Vol] 9.1 mg/dL Normal 8.5-10.1 [facility] Comment on above: Performed By: #### B MP #### [facility] [address] [place] [address] Dr. Leonides Anders Chloride [Moles/Vol] 91 mmol/L Critically low 98-107 [facility] Comment on above: Performed By: #### B MP #### [facility] [address] [place] [address] Dr. Leonides Anders CO2 [Moles/Vol] 22.8 mmol/L Normal 21.0-32.[address] [facility] Comment on above: Performed By: #### B MP #### [facility] [address] [place] [address] Dr. Leonides Anders Creatinine [Mass/Vol] 0.57 mg/dL Normal 0.55-1.[address] [facility] Comment on above: Performed By: #### B MP #### [facility] [address] [place] [address] Dr. Leonides Anders EGFR-AF CYPRIOT >60 Normal >=[address] [facility] Comment on above: Performed By: #### B MP #### [facility] [address] [place] [address] Dr. Leonides Anders EGFR-NON AF CYPRIOT >60 Normal >=[address] [facility] Comment on above: Performed By: #### B MP #### [facility] [address] [place] [address] Dr. Leonides Anders Glucose [Mass/Vol] 119 mg/dL Critically high 74-106 [facility] Comment on above: Performed By: #### B MP #### [facility] [address] [place] [address] Dr. Leonides Anders Potassium [Moles/Vol] 3.5 mmol/L Normal 3.5-5.[address] [facility] Comment on above: Performed By: #### B MP #### [facility] [address] [place] [address] Dr. Leonides Anders Sodium [Moles/Vol] 126 mmol/L Critically low 136-145 [facility] Comment on above: Performed By: #### B MP #### [facility] [address] [place] [address] Dr. Leonides Anders Urea nitrogen [Mass/Vol] 4.0 mg/dL Critically low 7.0-18.[address] [facility] Comment on above: Performed By: #### B MP #### [facility] [address] [place] [address] Dr. Leonides Anders Urea nitrogen/Creatinine [Mass ratio] 7.0 mg/mg Normal [facility] Comment on above: Performed By: #### B MP #### [facility] [address] [place] [address] Dr. Leonides Anders VITAMIN B12on 03-25-2022 Cobalamin (Vitamin B12) [Mass/Vol] 192.0 pg/mL Critically low 193.0-986. [address] [facility] Comment on above: Performed By: #### V ITB12 #### [facility] [address] [address] [address] Leonides Anders RAD - Ultrasound Reporton RAD - Ultrasound Report [id number]:127 Normal [facility] VIT D 1 25 DIHYDROXYon 12-06 Calcitriol(1,25 di-OH Vit D) 57.4 pg/mL Normal 24.8-81.[address] [facility] Comment on above: Result Comment: Pl ease note reference interval change Performed By: #### V [id number] ####[facility] [address] [address]Dr. Leonides Anders CBC AUTO DIFFon 12-04-2021 BASO # 0.1 103/ul Normal 0.0-0.[address] [facility] Comment on above: Performed By: #### C BC ####[facility] [address] [address]DrAna Anders Basophils/100 WBC (Bld) 0.5 % Normal 0.2-2.[address] [facility] Comment on above: Performed By: #### C BC ####[facility] [address] [address]DrAna Anders EO # 0.2 103/ul Normal 0.0-0.7 [facility] Comment on above: Performed By: #### C BC ####[facility] [address] [address]DrAna Anders Eosinophils/100 WBC (Bld) 2.3 % Normal 0.9-7.0 [facility] Comment on above: Performed By: #### C BC ####[facility] [address] [place], [place] [address]DrAna Anders Erythrocyte distribution width (RBC) [Ratio] 13.6 % Normal 11.0-15.0 [facility] Comment on above: Performed By: #### C BC ####[facility] [address] [address]Dr. Leonides Anders Hematocrit (Bld) [Volume fraction] 42.1 % Normal 36.0-48.[address] [facility] Comment on above: Performed By: #### C BC ####[facility] [address] [place], [place] [address]Dr. Leonides Anders Hemoglobin (Bld) [Mass/Vol] 14.4 g/dL Normal 12.0-16.0 [facility] Comment on above: Performed By: #### C BC ####[facility] [address] [place], [place] [address]Dr. Leonides Anders IG # 0.02 10e3/ul Normal 0.00-0.03 [facility] Comment on above: Performed By: #### C BC ####[facility] [address] [place], [place] [address]Dr. Kanikatorey Anders IG % 0.2 % Normal 0.0-0.[address] [facility] Comment on above: Performed By: #### C BC ####[facility] [address] [place], [place] [address]Dr. Leonides Chago LYMPH # 3.6 103/ul Normal 1.2-3.8 [facility] Comment on above: Performed By: #### C BC ####[facility] [address] [place], [place] [address]Dr. Kanikatorey Anders Lymphocytes/100 WBC (Bld) 38.3 % Normal 20.5-60.0 [facility] Comment on above: Performed By: #### C BC ####[facility] [address] [place], [place] [address]Dr. Kanikatorey Anders MANUAL DIFF REQ NO Normal [facility] Comment on above: Performed By: #### C BC ####[facility] [address] [place], [place] [address]DrAna Leonides Anders MCH (RBC) [Entitic mass] 31.0 pg Normal 26.7-34.0 [facility] Comment on above: Performed By: #### C BC ####[facility] [address] [id number]. Leonides Anders MCHC (RBC) [Mass/Vol] 34.2 g/dL Normal 29.9-35.[address] [facility] Comment on above: Performed By: #### C BC ####[facility] [address] [id number]. Leonides Anders MCV (RBC) [Entitic vol] 90.5 fL Normal 81.0-99.0 [facility] Comment on above: Performed By: #### C BC ####[facility] [address] [place], [place] [address]Dr. Leonides Anders MONO # 0.8 103/ul Normal 0.3-0.[address] [facility] Comment on above: Performed By: #### C BC ####[facility] [address] [place], [place] [address]Dr. Leonides Anders Monocytes/100 WBC (Bld) 8.7 % Normal 1.7-12.0 [facility] Comment on above: Performed By: #### C BC ####[facility] [address] [place], [place] [address]Dr. Leonides Anders NEUT # 4.7 103/ul Normal 1.4-6.[address] [facility] Comment on above: Performed By: #### C BC ####[facility] [address] [place], [place] [address]Dr. Leonides Anders Neutrophils/100 WBC (Bld) 50.0 % Normal 43.0-75.0 [facility] Comment on above: Performed By: #### C BC ####[facility] [address] [place], [place] [address]Dr. Leonides Anders Platelet mean volume (Bld) [Entitic vol] 9.3 fL Critically low 9.5-13.[address] [facility] Comment on above: Performed By: #### C BC ####[facility] [address] [place], [place] [address]Dr. Leonides Anders PLT 263 103/ul Normal 150-450 [facility] Comment on above: Performed By: #### C BC ####[facility] [address] [place], [place] [address]DgAna Anders RBC 4.65 106/ul Normal 4.20-5.40 [facility] Comment on above: Performed By: #### C BC ####[facility] [address] [place], [place] [address]UzAna Anders WBC 9.5 103/ul Normal 4.0-11.0 [facility] Comment on above: Performed By: #### C BC ####[facility] [address] [place], [place] [address]Gt. Leonides Anders FERRITINon 12-04-2021 Ferritin [Mass/Vol] 69.0 ng/mL Normal 8.0-252.[address] [facility] Comment on above: Performed By: #### F ERR, VITB12 #### [facility] [address] [address] [address] Leonides Anders LIPID PROFILEon 12-04-2021 CHOL-HDL RATIO NORM SEE BELOW Normal [facility] Comment on above: Result Comment: 3.3 - 4.4 LOW RISK 4.4 - 7.1 AVERAGE RISK 7.1 - 11.0 MODERATE RISK >11.0 HIGH RISK Performed By: #### C MP, LIPID #### [facility] [address] [place] [address] Dr. Leonides Anders Cholesterol [Mass/Vol] 234 mg/dL Critically high <=200 [facility] Comment on above: Performed By: #### C MP, LIPID #### [facility] [address] [address] [address] Leonides Anders Cholesterol in HDL [Mass/Vol] 48 mg/dL Normal 40-60 [facility] Comment on above: Performed By: #### C MP, LIPID #### [facility] [address] [address] [address] Leonides Anders Cholesterol in LDL [Mass/Vol] 150.8 mg/dL Normal [facility] Comment on above: Performed By: #### C MP, LIPID #### [facility] [address] [address] [address] Leonides Anders Cholesterol.total/Chol esterol in HDL [Mass ratio] 4.9 {ratio} Normal [facility] Comment on above: Performed By: #### C MP, LIPID #### [facility] [address] [address] [address] Leonides Anders HDL NORMAL > or = 60 mg/dl - LO W CARDIOVASCULAR RISK <40 mg/dl - HIGH CARDIOVASCULAR RISK Normal [facility] Comment on above: Performed By: #### C MP, LIPID #### [facility] [address] [place] [address] Dr. Leonides Anders LDL CALC NORMAL SEE BELOW Normal [facility] Comment on above: Result Comment: <100 mg/dl OPTIMAL 100 - 129 mg/dl NEAR OR ABOVE OPTIMAL 130 - 159 mg/dl BORDERLINE HIGH 160 - 189 mg/dl HIGH >190 mg/dl VERY HIGH Performed By: #### C MP, LIPID #### [facility] [address] [place] [address] Dr. Leonides Anders Triglyceride [Mass/Vol] 176 mg/dL Critically high <=[address] [facility] Comment on above: Performed By: #### C MP, LIPID #### [facility] [address] [place] [address] Dr. Leonides Anders VLDL CALC 35.2 mg/dL Normal [facility] Comment on above: Performed By: #### C MP, LIPID #### [facility] [address] [place] [address] Dr. Leonides Anders PROF 14(COMP METB)on 022 Albumin [Mass/Vol] 4.3 g/dL Normal 3.4-5.[address] [facility] Comment on above: Performed By: #### C MP, LIPID #### [facility] [address] [place] [address] Dr. Leonides Anders Albumin/Globulin [Mass ratio] 1.3 {ratio} Normal [facility] Comment on above: Performed By: #### C MP, LIPID #### [facility] [address] [place] [address] Dr. Leonides Anders ALP [Catalytic activity/Vol] 96 U/L Normal 46-[address] [facility] Comment on above: Performed By: #### C MP, LIPID #### [facility] [address] [address] [address] Leonides Anders ALT [Catalytic activity/Vol] 27 U/L Normal 14-[address] [facility] Comment on above: Performed By: #### C MP, LIPID #### [facility] [address] [address] [address] Leonides Anders Anion gap [Moles/Vol] 12.5 mmol/L Normal [facility] Comment on above: Performed By: #### C MP, LIPID #### [facility] [address] [address] [address] Leonides Anders AST [Catalytic activity/Vol] 16 U/L Normal 15-[address] [facility] Comment on above: Performed By: #### C MP, LIPID #### [facility] [address] [address] [address] Leonides Anders Bilirubin [Mass/Vol] 0.3 mg/dL Normal 0.2-1.[address] [facility] Comment on above: Performed By: #### C MP, LIPID #### [facility] [address] [address] [address] Leonides Anders Calcium [Mass/Vol] 9.5 mg/dL Normal 8.5-10.[address] [facility] Comment on above: Performed By: #### C MP, LIPID #### [facility] [address] [address] [address] Leonides Anders Chloride [Moles/Vol] 98 mmol/L Normal 98-107 [facility] Comment on above: Performed By: #### C MP, LIPID #### [facility] [address] [address] [address] Leonides Anders CO2 [Moles/Vol] 27.5 mmol/L Normal 21.0-32.[address] [facility] Comment on above: Performed By: #### C MP, LIPID #### [facility] [address] [address] [address] Leonides Anders Creatinine [Mass/Vol] 0.82 mg/dL Normal 0.55-1.[address] [facility] Comment on above: Performed By: #### C MP, LIPID #### [facility] [address] [address] [address] Leonides Anders EGFR-AF CYPRIOT >60 Normal >=[address] [facility] Comment on above: Performed By: #### C MP, LIPID #### [facility] [address] [address] [address] Leonides Anders EGFR-NON AF CYPRIOT >60 Normal >=[address] [facility] Comment on above: Performed By: #### C MP, LIPID #### [facility] [address] [address] [address] Leonides Anders Globulin (S) [Mass/Vol] 3.4 g/dL Normal [facility] Comment on above: Performed By: #### C MP, LIPID #### [facility] [address] [place] [address] Dr. Leonides Anders Glucose [Mass/Vol] 98 mg/dL Normal 74-[address] [facility] Comment on above: Performed By: #### C MP, LIPID #### [facility] [address] [place] [address] Dr. Leonides Anders Potassium [Moles/Vol] 4.0 mmol/L Normal 3.5-5.[address] [facility] Comment on above: Performed By: #### C MP, LIPID #### [facility] [address] [place] [address] Dr. Leonides Anders Protein [Mass/Vol] 7.7 g/dL Normal 6.4-8.[address] [facility] Comment on above: Performed By: #### C MP, LIPID #### [facility] [address] [place] [address] Dr. Leonides Anders Sodium [Moles/Vol] 134 mmol/L Critically low 136-145 [facility] Comment on above: Performed By: #### C MP, LIPID #### [facility] [address] [place] [address] Dr. Leonides Anders Urea nitrogen [Mass/Vol] 9.0 mg/dL Normal 7.0-18.[address] [facility] Comment on above: Performed By: #### C MP, LIPID #### [facility] [address] [address] [address] Leonides Anders Urea nitrogen/Creatinine [Mass ratio] 11.0 mg/mg Normal [facility] Comment on above: Performed By: #### C MP, LIPID #### [facility] [address] [address] [address] Leonides Anders US SINGLE QUAD RT UPPERon US SINGLE QUAD RT UPPER EXAMINATION: US SINGLE QUAD RT UPPER HISTORY: Epigastric pain COMPARISON: No relevant comparison available. FINDINGS: The liver measures 19.6 cm in length. The liver contour is normal. No focal hepatic mass. Diffuse increase in hepatic echotexture. Hepatopedal flow in the main portal vein The gallbladder is normal in size. The gallbladder wall measures 2.2 mm, normal. Negative sonographic De Paz sign. Multiple echogenic foci layering dependently and movable measuring up to 1 cm, cholelithiasis and gallbladder sludge. The common bile duct measures 6.7 mm, normal. The right kidney is normal in appearance measuring 12.8 x 5.0 x 5.1 cm. IMPRESSION: Cholelithiasis and gallbladder sludge without evidence of cholecystitis Electronically authenticated by: TUYET JONES Date: 2021-12-04 19:11 Normal [facility] VITAMIN B12on 12-04-2021 Cobalamin (Vitamin B12) [Mass/Vol] 232.0 pg/mL Normal 193.0-986. [address] [facility] Comment on above: Performed By: #### F ERR, VITB12 #### [facility] [address] [place] [address] Dr. Leonides Anders Ambulatory Visit Summaryon 0 11-23-2021 Ambulatory Visit Summary CANDY BOOTH :1970 Visit Date:11/23/2021 Ambulatory Visit Instructions Your Diagnosis Abdominal pain, epigastric Periumbilical abdominal pain Abnormal abdominal CT scan Tests Performed US Abdomen, Limited -- Results Pending -- Please visit your patient portal for your results or contact your primary care physician. Your Care Team Attending Physician - CARLOS BURKETT, Ibrahima Willis Primary Care Physician - MAUREEN MITCHELL MD This Is Your Medications List Contact prescribing physician if questions or concerns alprazolam (alprazolam 0.5 mg Tab) amitriptyline (amitriptyline 100 mg oral tablet) eletriptan (Relpax 40 mg Tab) ergocalciferol (Vitamin D 50,000 intl units (1.25 mg) oral capsule) oxycodone (oxycodone 30 mg oral tablet) pregabalin (Lyrica 200 mg Cap) sertraline (Zoloft 100 mg Tab) Procedures Performed Colonoscopy (2018), EGD - Esophagogastroduodenoscopy (2018), Appendectomy, Circumferential body lift, Exploratory laparotomy, Lumbar discectomy, Maame-en-y gastric bypass, TERRELL BSO - Total abdominal hysterectomy and bilateral salpingo-oophorectomy. Discharge Vitals Heart Rate (Peripheral) 72 Respiratory Rate 16 Blood Pressure 126/86 Height 167.6 cm Height 167.64 cm Weight 98.0 kg Weight 98 kg BMI 34.87 Medications What How Much When Instructions Unchanged alprazolam (alprazolam 0.5 mg Tab) 1 Tablets By Mouth Every 4 hours as needed for for anxiety Contact prescribing physician if questions or concerns Unchanged amitriptyline (amitriptyline 100 mg oral tablet) 1 Tablets By Mouth Once a day (at bedtime) Contact prescribing physician if questions or concerns Unchanged eletriptan (Relpax 40 mg Tab) 1 Tablets By Mouth Once Contact prescribing physician if questions or concerns Unchanged ergocalciferol (Vitamin D 50,000 intl units (1.25 mg) oral capsule) 1 Capsules By Mouth Friday & Friday Contact prescribing physician if questions or concerns Unchanged oxycodone (oxycodone 30 mg oral tablet) 1 Tablets By Mouth Every 4 hours as needed for for pain Contact prescribing physician if questions or concerns Unchanged pregabalin (Lyrica 200 mg Cap) 1 Capsules By Mouth 3 times a day Contact prescribing physician if questions or concerns Unchanged sertraline (Zoloft 100 mg Tab) 2 Tablets By Mouth Every day Contact prescribing physician if questions or concerns Allergies Effexor (Unknown) NSAIDs (Unknown) sulfa drugs (Unknown) Problems Ongoing - Any problem that you are currently receiving treatment for. Abdominal pain, epigastric Abnormal abdominal CT scan ADHD Anxiety Aortic anomaly BMI 34.0-34.9,adult Cervical disc disease Cholelithiases Depression GERD (gastroesophageal reflux disease) Hearing loss, bilateral History of GI bleed History of peptic ulcer Insomnia Iron deficiency anemia Migraine Mitral regurgitation Osteoporosis Patent foramen ovale Peripheral neuropathy Periumbilical abdominal pain Pernicious anemia Tobacco abuse Vitamin D deficiency Normal [facility] Physician Referralon 022 Physician Referral [id number]:127 Normal [facility] CBC AUTO DIFFon 11-03-2021 BASO # 0.0 103/ul Normal 0.0-0.[address] [facility] Comment on above: Performed By: #### C BC #### [facility] [address] [address] [address] Leonides Anders Basophils/100 WBC (Bld) 0.6 % Normal 0.2-2.[address] [facility] Comment on above: Performed By: #### C BC #### [facility] [address] [address] [address] Leonides Anders EO # 0.1 103/ul Normal 0.0-0.[address] [facility] Comment on above: Performed By: #### C BC #### [facility] [address] [address] [address] Leonides Anders Eosinophils/100 WBC (Bld) 0.9 % Normal 0.9-7.[address] [facility] Comment on above: Performed By: #### C BC #### [facility] [address] [address] [address] Leonides Anders Erythrocyte distribution width (RBC) [Ratio] 14.1 % Normal 11.0-15.[address] [facility] Comment on above: Performed By: #### C BC #### [facility] [address] [address] [address] Leonides Anders Hematocrit (Bld) [Volume fraction] 44.9 % Normal 36.0-48.[address] [facility] Comment on above: Performed By: #### C BC #### [facility] [address] [address] [address] Leonides Anders Hemoglobin (Bld) [Mass/Vol] 15.4 g/dL Normal 12.0-16.[address] [facility] Comment on above: Performed By: #### C BC #### [facility] [address] [place] [address] Dr. Leonides Anders IG # 0.02 10e3/ul Normal 0.00-0.[address] [facility] Comment on above: Performed By: #### C BC #### [facility] Laboratory [address] [place] [address] Dr. Leonides Anders IG % 0.3 % Normal 0.0-0.[address] [facility] Comment on above: Performed By: #### C BC #### [facility] [address] [place] [address] Dr. Leonides Anders LYMPH # 1.4 103/ul Normal 1.2-3.[address] [facility] Comment on above: Performed By: #### C BC #### [facility] [address] [place] [address] Dr. Leonides Anders Lymphocytes/100 WBC (Bld) 20.3 % Critically low 20.5-60.[address] [facility] Comment on above: Performed By: #### C BC #### [facility] [address] [place] [address] Dr. Leonides Anders MANUAL DIFF REQ NO Normal [facility] Comment on above: Performed By: #### C BC #### [facility] [address] [place] [address] Dr. Leonides Anders MCH (RBC) [Entitic mass] 30.6 pg Normal 26.7-34.[address] [facility] Comment on above: Performed By: #### C BC #### [facility] [address] [place] [address] Dr. Leonides Anders MCHC (RBC) [Mass/Vol] 34.3 g/dL Normal 29.9-35.2 [facility] Comment on above: Performed By: #### C BC #### [facility] [address] [place] [address] Dr. Leonides Anders MCV (RBC) [Entitic vol] 89.3 fL Normal 81.0-99.[address] [facility] Comment on above: Performed By: #### C BC #### [facility] [address] [place] [address] Dr. Leonides Anders MONO # 0.4 103/ul Normal 0.3-0.[address] [facility] Comment on above: Performed By: #### C BC #### [facility] [address] [place] [address] Dr. Leonides Anders Monocytes/100 WBC (Bld) 6.3 % Normal 1.7-12.[address] [facility] Comment on above: Performed By: #### C BC #### [facility] [address] [place] [address] Dr. Leonides Anders NEUT # 4.9 103/ul Normal 1.4-6.5 [facility] Comment on above: Performed By: #### C BC #### [facility] [address] [place] [address] Dr. Leonides Anders Neutrophils/100 WBC (Bld) 71.6 % Normal 43.0-75.[address] [facility] Comment on above: Performed By: #### C BC #### [facility] [address] [place] [address] Dr. Leonides Anders Platelet mean volume (Bld) [Entitic vol] 9.1 fL Critically low 9.5-13.[address] [facility] Comment on above: Performed By: #### C BC #### [facility] [address] [place] [address] Dr. Leonides Anders PLT 235 103/ul Normal 150-450 [facility] Comment on above: Performed By: #### C BC #### [facility] [address] [place] [address] Dr. Leonides Anders RBC 5.03 106/ul Normal 4.20-5.40 [facility] Comment on above: Performed By: #### C BC #### [facility] [address] [place] [address] Dr. Leonides Anders WBC 6.8 103/ul Normal 4.0-11.0 [facility] Comment on above: Performed By: #### C BC #### [facility] [address] [place] [address] ABD/PELV W CONon 11-04-19 CT ABD/PELV W CON EXAMINATION: CT ABD/ PELV W CON INDICATION: Epigastric and left abdominal pain with nausea and vomiting. COMPARISON: CT 09/05/2015 and 09/16/2017.. TECHNIQUE: Multiple contiguous axial CT images of the abdomen and pelvis were obtained after the administration of 64 mL of Omnipaque 300 contrast. Sagittal and coronal reconstructions were performed. Dose reduction techniques were achieved by using: automated exposure control and/or adjustment of mA and /or kV according to patient size and/or use of iterative reconstruction technique. FINDINGS: LOWER CHEST: Clear lung bases. The heart is normal in size. No pericardial or pleural effusion. ABDOMEN: Diffuse fatty infiltration of the liver. Cholelithiasis. Distended gallbladder. Stable mild chronic intra and extrahepatic biliary ductal dilatation. No significant pericholecystic inflammatory stranding or fluid. Normal pancreas, spleen, and right adrenal gland. Stable 10 mm left adrenal nodule, likely an adenoma. Normal kidneys. Changes of gastric bypass. Normal caliber bowel. No bowel thickening or inflammation. Nonaneurysmal abdominal aorta. Patent hepatic and mesenteric vessels. No abdominal adenopathy or ascites. PELVIS: Hysterectomy. Normal bladder. No free pelvic fluid or adenopathy. MUSCULOSKELETAL: No acute osseous abnormality or suspicious osseous lesion. IMPRESSION: 1. No acute abdominal or pelvic process identified. 2. Cholelithiasis with distended gallbladder. No other findings to suggest acute cholecystitis. 3. Hepatic steatosis. Electronically authenticated by: MARGARET PARRA Date: 2021-11-03 10:51 Normal [facility] LACTATE/LACTIC ACIDon 2021 Lactate [Moles/Vol] 0.9 mmol/L Normal 0.4-1.[address] [facility] Comment on above: Performed By: #### L ACT ####[facility] [address] [place] [address]Dr. Leonides Anders LIPASEon 11-03-2021 Lipase [Catalytic activity/Vol] 44.0 U/L Critically low 73.0-393.[address] [facility] Comment on above: Performed By: #### L IPA, CMP ####[facility] [address] [place] [address]Dr. Leonides Anders PROF 14(COMP METB)on 022 Albumin [Mass/Vol] 4.3 g/dL Normal 3.4-5.[address] [facility] Comment on above: Performed By: #### L IPA, CMP ####[facility] [address] [place] [id number]. Leonides Anders Albumin/Globulin [Mass ratio] 1.3 {ratio} Normal [facility] Comment on above: Performed By: #### L IPA, CMP ####[facility] [address] [place] [address]Dr. Leonides Anders ALP [Catalytic activity/Vol] 95 U/L Normal 46-116 [facility] Comment on above: Performed By: #### L IPA, CMP ####[facility] [address] [place] [address]Dr. Leonides Anders ALT [Catalytic activity/Vol] 20 U/L Normal 14-59 [facility] Comment on above: Performed By: #### L IPA, CMP ####[facility] [address] [place] [address]Dr. Leonides Anders Anion gap [Moles/Vol] 14.9 mmol/L Normal [facility] Comment on above: Performed By: #### L IPA, CMP ####[facility] [address] [place] [address]Dr. Leonides Anders AST [Catalytic activity/Vol] 21 U/L Normal 15-37 [facility] Comment on above: Performed By: #### L IPA, CMP ####[facility] [address] [place] [address]Dr. Leonides Anders Bilirubin [Mass/Vol] 0.5 mg/dL Normal 0.2-1.0 [facility] Comment on above: Performed By: #### L IPA, CMP ####[facility] [address] [place] [address]Dr. Leonides Anders Calcium [Mass/Vol] 9.6 mg/dL Normal 8.5-10.1 [facility] Comment on above: Performed By: #### L IPA, CMP ####[facility] [address] [place] [address]Dr. Leonides Anders Chloride [Moles/Vol] 99 mmol/L Normal 98-107 [facility] Comment on above: Performed By: #### L IPA, CMP ####[facility] [address] [place] [address]Dr. Leonides Anders CO2 [Moles/Vol] 23.1 mmol/L Normal 21.0-32.0 [facility] Comment on above: Performed By: #### L IPA, CMP ####[facility] [address] [place] [address]Dr. Leonides Anders Creatinine [Mass/Vol] 0.69 mg/dL Normal 0.55-1.02 [facility] Comment on above: Performed By: #### L IPA, CMP ####[facility] [address] [place], [place] [address]Dr. Leonides Anders EGFR-AF CYPRIOT >60 Normal >=60 [facility] Comment on above: Performed By: #### L IPA, CMP ####[facility] [address] [place], [place] [address]Dr. Leonides Anders EGFR-NON AF CYPRIOT >60 Normal >=60 [facility] Comment on above: Performed By: #### L IPA, CMP ####[facility] [address] [place], [place] [address]Dr. Leonides Anders Globulin (S) [Mass/Vol] 3.4 g/dL Normal [facility] Comment on above: Performed By: #### L IPA, CMP ####[facility] [address] [place] [address]Dr. Leonides Anders Glucose [Mass/Vol] 121 mg/dL Critically high 74-106 [facility] Comment on above: Performed By: #### L IPA, CMP ####[facility] [address] [place], [place] [address]Dr. Leonides Anders Potassium [Moles/Vol] 4.0 mmol/L Normal 3.5-5.1 [facility] Comment on above: Performed By: #### L IPA, CMP ####[facility] [address] [place] [address]Dr. Leonides Anders Protein [Mass/Vol] 7.7 g/dL Normal 6.4-8.2 [facility] Comment on above: Performed By: #### L IPA, CMP ####[facility] [address] [place] [address]Dr. Leonides Anders Sodium [Moles/Vol] 133 mmol/L Critically low 136-145 [facility] Comment on above: Performed By: #### L IPA, CMP ####[facility] [address] [place] [address]Dr. Leonides Anders Urea nitrogen [Mass/Vol] 6.0 mg/dL Critically low 7.0-18.[address] [facility] Comment on above: Performed By: #### L IPA, CMP ####[facility] [address] [place] [address]Dr. Leonides Anders Urea nitrogen/Creatinine [Mass ratio] 8.7 mg/mg Normal [facility] Comment on above: Performed By: #### L IPA, CMP ####[facility] [address] [place] [address]Dr. Leonides Anders TROPONIN, HIGH SENSITIVITYon 11-03-2021 HSTROP 6.0 pg/mL Normal 4.0-51.[address] [facility] Comment on above: Result Comment: CUT- OFF POINTS HAVE BEEN ESTABLISHED BASED ON THE FOURTH UNIVERSAL DEFINITIONS OF MYOCARDIAL INFARCTION. THE UPPER REFERENCE LIMIT (URL) OF TROPONIN, DEFINED THE 99TH PERCENTILE OF cTnI DISTRIBUTION IN A REFERENCE POPULATION, HAS BEEN CONFIRMED THE DECISION THRESHOLD FOR HI DIAGNOSIS. Performed By: #### H DONTEPN ####[facility] [address] [place] [address]Dr. Leonides Anders [place] 03-26-2021 DILCIA Telephone (HEMAGRE) CANDY [id number]) 1970 F Date Time Provider Department 03/26/21 ARISTIDES SAMUEL During your visit today, we recorded the following information about you: Allergies As of Date: 03/26/2021 Noted Allergy Reaction ACETAMINOPHEN-CODEINE 09/06/2015 5 - Intolerance Comments: Sleep apnea EFFEXOR (VENLAFAXINE ANALOGUES) 2020 16 - Unknown NSAIDS (NON-STEROIDAL ANTI-INFLAM*09/06/2015 14 - Other: See Comments Comments: Has not taken due to gastric bypass surgery in the past SULFAMETHAZINE 2020 16 - Unknown Comments: Ophthalmic agents Date Reviewed: 11/08/2020 Reviewed by: Hai Matute APRN.CAGE CLERK - Fully Assessed Reason for Visit: Rx Refills [128] Prescriptions as of 08/06/2021 - amitriptyline (ELAVIL) 75 mg tablet Take 75 mg by mouth daily at bedtime. - carisoprodol (SOMA) 350 mg tablet Take 350 mg by mouth four times daily. - amphetamine-dextroamphetami ne 15 mg tablet Take 1 tablet by mouth once daily. - cholecalciferol, Vitamin D3, (VITAMIN D3) 1,250 mcg (50,000 unit) cap capsule Take 1 capsule by mouth two times a week. - acetaminophen (TYLENOL EXTRA STRENGTH) 500 mg tablet Take 1,000 mg by mouth every 4 hours as needed. - dexlansoprazole (DEXILANT ORAL) Take by mouth once daily. - ALPRAZolam (XANAX) 0.5 mg tablet Take 0.5 mg by mouth four times daily as needed. - sertraline (ZOLOFT) 100 mg tablet Take 200 mg by mouth once daily. - carvedilol (COREG) 3.125 mg tablet Take 3.125 mg by mouth. - oxyCODONE IR (ROXICODONE) 20 mg tab Take 1 tablet by mouth. - Pregabalin (LYRICA) 200 mg capsule Take 200 mg by mouth three times daily. - oxyCODONE-acetaminophen (PERCOCET) 5-325 mg tablet Take 1 tablet by mouth every 4 hours as needed for Pain. - eletriptan (RELPAX) 40 mg tablet Take 40 mg by mouth as needed (migraine). may repeat in 2 hours if necessary Problem List As Of Date 03/26/2021 Noted Resolved Gastric outflow obstruction [K31.1] 09/06/2015 Megaloblastic anemia due to vitamin B12 deficie*10/11/2020 Iron deficiency anemia due to chronic blood los*10/11/2020 History of Maame-en-Y gastric bypass [Z98.84] 10/11/2020 Encounter Status:Closed by LORI TAMEZ on 08/06/21 [facility] CNPIsela 11-29-2020 CNPN Telephone (HEMASA) CANDY BOOTH ([id number]) 1970 F Date Time Provider Department 11/29/20 JAY AMAYA During your visit today, we recorded the following information about you: Allergies As of Date: 11/29/2020 Noted Allergy Reaction ACETAMINOPHEN-CODEINE 09/06/2015 5 - Intolerance Comments: Sleep apnea EFFEXOR (VENLAFAXINE ANALOGUES) 2020 16 - Unknown NSAIDS (NON-STEROIDAL ANTI-INFLAM*09/06/2015 14 - Other: See Comments Comments: Has not taken due to gastric bypass surgery in the past SULFAMETHAZINE 2020 16 - Unknown Comments: Ophthalmic agents Date Reviewed: 11/08/2020 Reviewed by: Hai Matute APRN.CAGE CLERK - Fully Assessed Reason for Visit: Lab Orders [1688] Primary Visit Diagnosis: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 - carisoprodol (SOMA) 350 mg tablet Take 350 mg by mouth four times daily. - amphetamine-dextroamphetami ne 15 mg tablet Take 1 tablet by mouth once daily. - cholecalciferol, Vitamin D3, (VITAMIN D3) 1,250 mcg (50,000 unit) cap capsule Take 1 capsule by mouth two times a week. - acetaminophen (TYLENOL EXTRA STRENGTH) 500 mg tablet Take 1,000 mg by mouth every 4 hours as needed. - dexlansoprazole (DEXILANT ORAL) Take by mouth once daily. - ALPRAZolam (XANAX) 0.5 mg tablet Take 0.5 mg by mouth four times daily as needed. - sertraline (ZOLOFT) 100 mg tablet Take 200 mg by mouth once daily. - carvedilol (COREG) 3.125 mg tablet Take 3.125 mg by mouth. - oxyCODONE IR (ROXICODONE) 20 mg tab Take 1 tablet by mouth. - Pregabalin (LYRICA) 200 mg capsule Take 200 mg by mouth three times daily. - oxyCODONE-acetaminophen (PERCOCET) 5-325 mg tablet Take 1 tablet by mouth every 4 hours as needed for Pain. - eletriptan (RELPAX) 40 mg tablet Take 40 mg by mouth as needed (migraine). may repeat in 2 hours if necessary Problem List As Of Date 11/29/2020 Noted Resolved Gastric outflow obstruction [K31.1] 09/06/2015 Megaloblastic anemia due to vitamin B12 deficie*10/11/2020 Iron deficiency anemia due to chronic blood los*10/11/2020 History of Maame-en-Y gastric bypass [Z98.84] 10/11/2020 Encounter Status:Closed by MICHELLE ALLISON on 11/30/20 [facility] CNOVSPon 11-08-2020 CNOVSP Visit (SP) Office (H EMASA) CANDY BOOTH ([id number]) 1970 F Date Time Provider Department 11/08/20 1:30 PM HAI MATUTE During your visit today, we recorded the following information about you: Temperature Pulse Respiration Blood pressure 97.2 degrees 94/minute 16/minute 118/79 Weight Height 92.4 kg 1.702 m Hai Matute APRN.CNP 11/08/2020 3:37 PM Signed NAME: Candy Booth CLINIC NO.: [id number] DATE OF SERVICE: November 08, 2020 Referring Provider: Dr. Maureen Mitchell (Elements copied from note dated 10/11/2020 have been reviewed and updated where appropriate, and all reflect current assessment and medical decision making during today's encounter, November 08, 2020) Additional Clinicians involved in Candy Booth's care: CC: Consultation for iron deficiency anemia. ASSESSMENT: 50-year-old woman with prior history of gastric bypass and GI bleed with no identified source presents for follow up of anemia and was noted to have microcytic findings and B12 deficiency in addition to iron deficiency. She received vitamin B12 12 replacement intramuscularly on 10/11/2020. Her iron studies from 10/11/2020 showed a ferritin level of 23.6, iron level of 22 and transferrin saturation of 6. PLAN: 1. B12 shot today and every 4 weeks 2. Will give Monoferric 1000 mg IV today. 3. We will plan to see her back in 4 weeks for follow up, labs and monthly B12. TREATMENT TO DATE: 2. IV Monoferric- current: Started 11/08/2020. 1. Monthly B12- current: Started 10/11/2020. HPI: Updated Visit, November 08, 2020: Candy Booth returns for follow-up. She states that after her B12 injection she had multiple side effects including diarrhea, body aches, chills, dizziness upon standing and headaches. Aftef a couple of days the side effects resolved. On a good note she states that the B12 helped her pain medications work better. She denies any signs of blood loss. Initial Visit, October 11, 2020: Candy Booth presents today Hematology and Oncology evaluation. She is a 50 year old female who presents with her Trev in consultation for iron deficiency anemia. She tells me that she had Gastric By-pass in 2007 and subsequently had 2 GI bleeds approximately a month and a half apart in August and September 2017 requiring 5 units of blood for resuscitation. She also had a heart attack at the same time. Given her gastric bypass, she was unable to find source of bleeding via endoscopy and was unable to do her pill endoscopy. 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 She has primary complaints of fatigue but no pica. Outside labs were reviewed. REVIEW OF SYSTEMS Per HPI and otherwise negative by full review of organ systems. ECOG PERFORMANCE STATUS: 0 PHYSICAL EXAMINATION: Vitals: BP 118/79 Pulse 94 Temp (Src) 97.2 (Temporal) Resp 16 Ht 5' 7.008 (1.70m) Wt 203 lb 12.8 oz (92.4kg) SpO2 97% BMI 31.91 kg/(m2). Body surface area is 2.09 meters squared. Exam limited to gross visualization where appropriate due to COVID-19. Gen.: This is an age-appropriate patient in no acute distress. Head: Appears atraumatic with no visible lesions. Eyes: Pupils equally round and reactive to light, extraocular muscles are intact. Neck: Supple. Mouth: Mucous membranes appeared to be moist. Respiratory: Appears to be respiring comfortably. Neurologic: Nonfocal to gross visualization. Alert and oriented ?3. Psychiatric: No evidence of inappropriate anxiety or depression. Skin: Visible areas of skin without rash, lesions, wounds or petechiae. ALLERGIES: ALLERGIES Allergen Reactions - Acetaminophen-Codei* Intolerance Sleep apnea - Effexor [Venlafaxin* Unknown - Nsaids (Non-Steroid* Other: See Comments Has not taken due to gastric bypass surgery in the past - Sulfamethazine Unknown Ophthalmic agents MEDICATIONS: albuterol HFA (PROVENTIL HFA, VENTOLIN HFA) 90 mcg/actuation inhaler albuterol sulfate HFA 90 mcg/actuation aerosol inhaler amitriptyline (ELAVIL) 50 mg tablet amitriptyline (ELAVIL) 75 mg tablet Take 75 mg by mouth daily at bedtime. carisoprodol (SOMA) 350 mg tablet Take 350 mg by mouth four times daily. amphetamine-dextroamphetami ne 15 mg tablet Take 1 tablet by mouth twice daily. pantoprazole DR (PROTONIX) 40 mg tablet Take 40 mg by mouth. sulfacetamide (BLEPH-10) 10 % ophthalmic solution sulfacetamide sodium 10 % eye drops SUMAtriptan (IMITREX) 100 mg tablet sumatriptan 100 mg tablet tobramycin (TOBREX) 0.3 % ophthalmic solution tobramycin 0.3 % eye drops instill 1 (ONE) DROP into the left eye FOUR TIMES DAILY DIRECTED vortioxetine (TRINTELLIX) 10 mg tablet Trintellix 10 mg tablet TAKE 1 TABLET BY MOUTH DAILY baclofen (LIORESAL) 20 mg tablet Take 20 mg by mouth three times daily as needed. cholecalciferol, Vitamin D3, (VITAMIN D3) 1,250 mcg (50,000 unit) cap capsule (more content not included)... Normal [facility] Comp Metabolic Panelon 11-08 Albumin [Mass/Vol] 4.4 g/dL Normal 3.9-4.9 [facility] Comment on above: Performed By: #### F ERR, B12, IRON #### [facility] [address], [place] [address] ALP [Catalytic activity/Vol] 111 U/L Normal 34-123 [facility] Comment on above: Performed By: #### F ERR, B12, IRON #### [facility] [address] [place], [place] [address] ALT [Catalytic activity/Vol] 7 U/L Normal 7-38 [facility] Comment on above: Performed By: #### F ERR, B12, IRON #### [facility] [address] [place], [place] [address] Anion gap [Moles/Vol] 7 mmol/L Low 9-18 [facility] Comment on above: Performed By: #### F ERR, B12, IRON #### [facility] [address] [place], [place] [address] AST [Catalytic activity/Vol] 17 U/L Normal 13-35 [facility] Comment on above: Performed By: #### F ERR, B12, IRON #### [facility] [address] [place] [address] Bilirubin [Mass/Vol] mg/dL Low 0.2-1.3 [facility] Comment on above: Performed By: #### F ERR, B12, IRON #### [facility] [address] [place] [address] Calcium [Mass/Vol] 9.7 mg/dL Normal 8.5-10.2 [facility] Comment on above: Performed By: #### F ERR, B12, IRON #### [place] [address] [place] [address] Chloride [Moles/Vol] 100 mmol/L Normal 97-105 [facility] Comment on above: Performed By: #### F ERR, B12, IRON #### [place] [address] CO2 [Moles/Vol] 26 mmol/L Normal 22-30 [facility] Comment on above: Performed By: #### F ERR, B12, IRON #### [place] [address] [phone] Creatinine [Mass/Vol] 0.63 mg/dL Normal 0.58-0.96 [facility] Comment on above: Performed By: #### F ERR, B12, IRON #### [place] [address] [place] [address] eGFR- Amer. >60 Normal [facility] Comment on above: Performed By: #### F ERR, B12, IRON #### [place] [address] [place] [phone] eGFR-All Other Races >60 Normal [facility] Comment on above: Result Comment: eGFR (Estimated GFR) Units of measure: mL/min/1.73 meters squared eGFR is derived from the reexpressed MDRD Study equation using the following parameters: serum creatinine, age, gender and race. The creatinine assay has been calibrated to be traceable to IDMS. An eGFR <60 mL/min/1.73m2 for >3 months is consistent with chronic kidney disease. Refer to KDOQI guidelines for clinical interpretation. In patients with unstable renal function, e.g. those with acute kidney injury, the eGFR may not accurately reflect actual GFR. Performed By: #### F ERR, B12, IRON #### [facility] [employer] [address] [place], [place] [address] Glucose [Mass/Vol] 104 mg/dL High 74-99 [facility] Comment on above: Result Comment: The [place] [employer] (ADA) provides guidance for cutoff values for fasting glucose and random glucose. The ADA defines fasting as no caloric intake for at least 8 hours. Fasting plasma glucose results between 100 to 125 mg/dL indicate increased risk for diabetes (prediabetes). Fasting plasma glucose results greater than or equal to 126 mg/dL meet the criteria for diagnosis of diabetes. In the absence of unequivocal hyperglycemia, results should be confirmed by repeat testing. In a patient with classic symptoms of hyperglycemia or hyperglycemic crisis, random plasma glucose results greater than or equal to 200 mg/dL meet the criteria for diagnosis of diabetes. Reference: Standards of Medical Care in Diabetes 2016, [place] [employer]. Diabetes Care. 2016.39(Suppl 1). Performed By: #### F ERR, B12, IRON #### [facility] [employer] [address] [place], [place] [address] Potassium [Moles/Vol] 4.4 mmol/L Normal 3.7-5.1 [facility] Comment on above: Performed By: #### F ERR, B12, IRON #### [facility] [employer] [address] [place], [place] [address] Protein [Mass/Vol] 6.9 g/dL Normal 6.3-8.0 [facility] Comment on above: Performed By: #### F ERR, B12, IRON #### [facility] [employer] [address], [place] [address] Sodium [Moles/Vol] 133 mmol/L Low 136-144 [facility] Comment on above: Performed By: #### F ERR, B12, IRON #### [facility] [facility] [address] [id number] Urea nitrogen [Mass/Vol] 9 mg/dL Normal 7-21 [facility] Comment on above: Performed By: #### F ERR, B12, IRON #### [address] [place] [address] Ferritinon 11-08-2020 Ferritin [Mass/Vol] 13.1 ng/mL Low 14.7-205.1 [facility] Comment on above: Performed By: #### F ERR, B12, IRON #### [address] [place] [address] Iron and TIBCon 11-08-2020 Iron [Mass/Vol] 29 ug/dL Low 41-186 [facility] Comment on above: Performed By: #### F ERR, B12, IRON #### [address] [place] [address] TIBC 405 ug/dL High 232-386 [facility] Comment on above: Performed By: #### F ERR, B12, IRON #### [phone] [place] [address] [id number] Transferrin Saturatn 7 % Low 15-57 [facility] Comment on above: Performed By: #### F ERR, B12, IRON #### [address] [place] [address] Remote CBCDIF (for [facility] use o nly)on 11-08-2020 Abs Baso 0.04 k/uL Normal <0.11 [facility] Abs [place] 0.79 k/uL Normal <0.87 [facility] Abs Neut 8.64 k/uL High 1.45-7.50 [facility] Absolute nRBC <0.01 Normal <0.01 [facility] Basophils/100 WBC (Bld) 0.3 % Normal [facility] DTYPE Auto Diff Normal [facility] Eosinophils (Bld) [#/Vol] 0.11 10*3/uL Normal <0.46 [facility] Eosinophils/100 WBC (Bld) 0.9 % Normal [facility] Erythrocyte distribution width (RBC) [Ratio] 18.0 % High 11.5-15.0 [facility] Hematocrit (Bld) [Volume fraction] 34.8 % Low 36.0-46.0 [facility] Hemoglobin (Bld) [Mass/Vol] 11.2 g/dL Low 11.5-15.5 [facility] Lymphocytes (Bld) [#/Vol] 2.16 10*3/uL Normal 1.00-4.00 [facility] Lymphocytes/100 WBC (Bld) 18.4 % Normal [facility] MCH 25.5 pG Low 26.0-34.0 [facility] MCHC (RBC) [Mass/Vol] 32.2 g/dL Normal 30.5-36.0 [facility] MCV (RBC) [Entitic vol] 79.1 fL Low 80.0-100.0 [facility] Monocytes/100 WBC (Bld) 6.7 % Normal [facility] Neutrophils/100 WBC (Bld) 73.7 % Normal [facility] NRBCs 0.0 /100 WBC Normal 0 [facility] Platelet mean volume (Bld) [Entitic vol] 9.3 fL Normal 9.0-12.7 [facility] Platelets (Bld) [#/Vol] 253 10*3/uL Normal 150-400 [facility] RBC (Bld) [#/Vol] 4.40 10*6/uL Normal 3.90-5.20 [facility] WBC (Bld) [#/Vol] 11.74 10*3/uL High 3.70-11.00 [facility] Vitamin B12on 11-08-2020 Cobalamin (Vitamin B12) [Mass/Vol] 236 pg/mL Normal 232-1245 [facility] Comment on above: Performed By: #### F ERR, B12, IRON #### [facility] [address] [place], [place] [address] CNPNon 11-02-2020 DILCIA Telephone (LONGASA) CANDY BOOTH ([id number]) 1970 F Date Time Provider Department 11/02/20 HAI MATUTE During your visit today, we recorded the following information about you: Analisa Tai 11/02/2020 8:07 AM Signed Patient schedule to see you Friday11/08/20 for follow up lab. Please sign pending cbc order. Thanks, Analisa Tai Allergies As of Date: 11/02/2020 Noted Allergy Reaction ACETAMINOPHEN-CODEINE 09/06/2015 5 - Intolerance Comments: Sleep apnea EFFEXOR (VENLAFAXINE ANALOGUES) 2020 16 - Unknown NSAIDS (NON-STEROIDAL ANTI-INFLAM*09/06/2015 14 - Other: See Comments Comments: Has not taken due to gastric bypass surgery in the past SULFAMETHAZINE 2020 16 - Unknown Comments: Ophthalmic agents Date Reviewed: 10/11/2020 Reviewed by: Lynn Leon MA - Fully Assessed Reason for Visit: Lab Orders [5401] Primary Visit Diagnosis:Megaloblastic anemia due to vitamin B12 deficiency [D53.1] Prescriptions as of 11/02/2020 Sig: ALBUTEROL SULFATE HFA 90 MCG/* albuterol sulfate HFA 90 mcg/* Patient not taking: albuterol sulfate HFA 90 mcg/* AMITRIPTYLINE 50 MG TABLET Patient not taking: Reported on 10/11/2020 AMITRIPTYLINE 75 MG TABLET Take 75 mg by mouth daily at * CARISOPRODOL 350 MG TABLET Take 350 mg by mouth four pamela* DEXTROAMPHETAMINE-AMPHETAMI NE* Take 1 tablet by mouth twice * PANTOPRAZOLE 40 MG TABLET,DEL* Take 40 mg by mouth. Patient not taking: Reported on 10/11/2020 SULFACETAMIDE SODIUM 10 % EYE* sulfacetamide sodium 10 % eye* Patient not taking: sulfacetamide sodium 10 % eye* SUMATRIPTAN 100 MG TABLET sumatriptan 100 mg tablet Patient not taking: sumatriptan 100 mg tablet TOBRAMYCIN 0.3 % EYE DROPS tobramycin 0.3 % eye drops * Patient not taking: tobramycin 0.3 % eye drops TRINTELLIX 10 MG TABLET Trintellix 10 mg tablet ARIAS* Patient not taking: BACLOFEN 20 MG TABLET Take 20 mg by mouth three pamela* Patient not taking: Reported on 10/11/2020 CHOLECALCIFEROL (VITAMIN D3) * Take 1 capsule by mouth two t* ACETAMINOPHEN 500 MG TABLET Take 1,000 mg by mouth every * DEXILANT ORAL Take by mouth once daily. ALPRAZOLAM 0.5 MG TABLET Take 0.5 mg by mouth four pamela* SERTRALINE 100 MG TABLET Take 200 mg by mouth once lorena* CARVEDILOL 3.125 MG TABLET Take 3.125 mg by mouth. Patient not taking: Reported on 10/11/2020 OXYCODONE 20 MG TABLET Take 1 tablet by mouth. PREGABALIN 200 MG CAPSULE Take 200 mg by mouth three ti* OXYCODONE-ACETAMINOPHEN 5 MG-* Take 1 tablet by mouth every * Patient not taking: Reported on 10/11/2020 ERGOCALCIFEROL (VITAMIN D2) 1* Take 50,000 Units by mouth ev* Patient not taking: Reported on 10/11/2020 ELETRIPTAN 40 MG TABLET Take 40 mg by mouth as needed* ALENDRONATE 70 MG TABLET Take 70 mg by mouth once each* Patient not taking: Reported on 10/11/2020 MULTIVITAMIN TABLET Take 1 tablet by mouth once d* Patient not taking: Reported on 10/11/2020 CALCIUM CARBONATE 200 MG CALC* Take 500 mg by mouth as neede* Patient not taking: Reported on 10/11/2020 Problem List As Of Date 11/02/2020 Noted Resolved Gastric outflow obstruction [K31.1] 09/06/2015 Megaloblastic anemia due to vitamin B12 deficie*10/11/2020 Iron deficiency anemia due to chronic blood los*10/11/2020 History of Maame-en-Y gastric bypass [Z98.84] 10/11/2020 Encounter Status:Closed by ANALISA TAI on 11/06/20 [facility] CNNURSEon 10-11-2020 CNNURSE Nurse Visit (HEMASA) CANDY BOOTH ([id number]) 1970 F Date Time Provider Department 10/11/20 4:00 PM THANH NURSE PAUL VICTORIA NEFTALI During your visit today, we recorded the following information about you: Analisa Tai 10/11/2020 4:09 PM Signed Patient Identification confirmed: yes. Injection given and documented on JUL per provider order. Analisa Tai Referring Provider: JAY AMAYA [[id number]] Allergies As of Date: 10/11/2020 Noted Allergy Reaction ACETAMINOPHEN-CODEINE 09/06/2015 5 - Intolerance Comments: Sleep apnea EFFEXOR (VENLAFAXINE ANALOGUES) 2020 16 - Unknown NSAIDS (NON-STEROIDAL ANTI-INFLAM*09/06/2015 14 - Other: See Comments Comments: Has not taken due to gastric bypass surgery in the past SULFAMETHAZINE 2020 16 - Unknown Comments: Ophthalmic agents Date Reviewed: 10/11/2020 Reviewed by: Lynn Leon MA - Fully Assessed Primary Visit Diagnosis:Megaloblastic anemia due to vitamin B12 deficiency [D53.1] Other Visit Diagnoses:Iron deficiency anemia due to chronic blood loss [D50.0] History of Maame-en-Y gastric bypass [Z98.84] Order(s):TREATMENT PARAMETER-NOT NEEDED [[id number]] Order #: [id number]: 1 [facility] NURSING COMMUNICATION [[id number]] Order #: [id number]: 1 STANDING [] cyanocobalamin 1,000 mcg injectionDisp: Rfl: Prescriptions as of 10/11/2020 Sig: ALBUTEROL SULFATE HFA 90 MCG/* albuterol sulfate HFA 90 mcg/* Patient not taking: albuterol sulfate HFA 90 mcg/* AMITRIPTYLINE 50 MG TABLET Patient not taking: Reported on 10/11/2020 AMITRIPTYLINE 75 MG TABLET Take 75 mg by mouth daily at * CARISOPRODOL 350 MG TABLET Take 350 mg by mouth four pamela* DEXTROAMPHETAMINE-AMPHETAMI NE* Take 1 tablet by mouth twice * PANTOPRAZOLE 40 MG TABLET,DEL* Take 40 mg by mouth. Patient not taking: Reported on 10/11/2020 SULFACETAMIDE SODIUM 10 % EYE* sulfacetamide sodium 10 % eye* Patient not taking: sulfacetamide sodium 10 % eye* SUMATRIPTAN 100 MG TABLET sumatriptan 100 mg tablet Patient not taking: sumatriptan 100 mg tablet TOBRAMYCIN 0.3 % EYE DROPS tobramycin 0.3 % eye drops * Patient not taking: tobramycin 0.3 % eye drops TRINTELLIX 10 MG TABLET Trintellix 10 mg tablet ARIAS* Patient not taking: BACLOFEN 20 MG TABLET Take 20 mg by mouth three pamela* Patient not taking: Reported on 10/11/2020 CHOLECALCIFEROL (VITAMIN D3) * Take 1 capsule by mouth two t* ACETAMINOPHEN 500 MG TABLET Take 1,000 mg by mouth every * DEXILANT ORAL Take by mouth once daily. ALPRAZOLAM 0.5 MG TABLET Take 0.5 mg by mouth four pamela* SERTRALINE 100 MG TABLET Take 200 mg by mouth once lorena* CARVEDILOL 3.125 MG TABLET Take 3.125 mg by mouth. Patient not taking: Reported on 10/11/2020 OXYCODONE 20 MG TABLET Take 1 tablet by mouth. PREGABALIN 200 MG CAPSULE Take 200 mg by mouth three ti* OXYCODONE-ACETAMINOPHEN 5 MG-* Take 1 tablet by mouth every * Patient not taking: Reported on 10/11/2020 ERGOCALCIFEROL (VITAMIN D2) 1* Take 50,000 Units by mouth ev* Patient not taking: Reported on 10/11/2020 ELETRIPTAN 40 MG TABLET Take 40 mg by mouth as needed* ALENDRONATE 70 MG TABLET Take 70 mg by mouth once each* Patient not taking: Reported on 10/11/2020 MULTIVITAMIN TABLET Take 1 tablet by mouth once d* Patient not taking: Reported on 10/11/2020 CALCIUM CARBONATE 200 MG CALC* Take 500 mg by mouth as neede* Patient not taking: Reported on 10/11/2020 Problem List As Of Date 10/11/2020 Noted Resolved Gastric outflow obstruction [K31.1] 09/06/2015 Megaloblastic anemia due to vitamin B12 deficie*10/11/2020 Iron deficiency anemia due to chronic blood los*10/11/2020 History of Maame-en-Y gastric bypass [Z98.84] 10/11/2020 Visit Notes: >> August Zaire Wed October 11, 2020 4:07 PM Status: Signed Patient Identification confirmed: yes. Injection given and documented on JUL per provider order. August Tai Prescriptions ordered this encounter Disp Refills Start End CYANOCOBALAMIN (VIT B-12) 1,000 MCG/* 10/11/2020 10/11/2020 Route: INTRAMUSCULA Encounter Status:Closed by TAIAugust on 10/11/20 [facility] CNOVSPon 10-11-2020 CNOVSP Visit (SP) Office ([facility]) CANDY BOOTH ([id number]) 1970 F Date Time Provider Department 10/11/20 3:15 PM JAY AMAYA During your visit today, we recorded the following information about you: Temperature Pulse Respiration Blood pressure 96.9 degrees 120/minute 16/minute 111/60 Weight Height 92.3 kg 1.702 m Jay Amaya MD 10/21/2020 6:59 PM Signed NAME: Candy Booth CLINIC NO.: [id number] DATE OF SERVICE: October 11, 2020 Referring Provider: Maureen Mitchell Consultation requested by Dr. Mitchell for an opinion regarding Ana Candy Booth, and my final recommendations will be communicated back to the requesting physician by way of shared medical record or letter via US mail. Additional Clinicians involved in Candy Booth's care: CC: Consultation for iron deficiency anemia. ASSESSMENT: 51-year-old woman with prior history of gastric bypass and GI bleed with no identified source presents for work-up of anemia and was noted to have microcytic findings and B12 deficiency in addition to iron deficiency. Currently she is minimally anemic and therefore I would not replace her iron immediately but will give her vitamin B12 replacement intramuscularly as well as planned for her to need iron in the future. Given her inability to absorb iron or B12 will need to provide this parenterally. PLAN: 1. B12 Shot today and every 4 weeks 2. Return in 4 weeks immanuel Sebastiany or Andreina 3. CBC on return and probable monoferric infusion that day HPI: Initial Visit, October 11, 2020: Candy Booth presents today Hematology and Oncology evaluation. She is a 50 year old female who presents with her Trev in consultation for iron deficiency anemia. She tells me that she had Gastric By-pass in 2007 and subsequently had 2 GI bleeds approximately a month and a half apart in August and September 2017 requiring 5 units of blood for resuscitation. She also had a heart attack at the same time. Given her gastric bypass, she was unable to find source of bleeding via endoscopy and was unable to do her pill endoscopy. 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 She has primary complaints of fatigue but no pica. Outside labs were reviewed. REVIEW OF SYSTEMS Per HPI and otherwise negative by full review of organ systems. ECOG PERFORMANCE STATUS: 0 PHYSICAL EXAMINATION: Vitals: BP 111/60 Pulse 120 Temp (Src) 96.9 (Temporal) Resp 16 Ht 5' 7.008 (1.70m) Wt 203 lb 6.4 oz (92.3kg) SpO2 96% BMI 31.85 kg/(m2). Body surface area is 2.09 meters squared. Exam limited to gross visualization where appropriate due to COVID-19. Gen.: This is an age-appropriate patient in no acute distress. Head: Appears atraumatic with no visible lesions. Eyes: Pupils equally round and reactive to light, extraocular muscles are intact. Neck: Supple. Mouth: Mucous membranes appeared to be moist. Respiratory: Appears to be respiring comfortably. Neurologic: Nonfocal to gross visualization. Alert and oriented ?3. Psychiatric: No evidence of inappropriate anxiety or depression. Skin: Visible areas of skin without rash, lesions, wounds or petechiae. ALLERGIES: ALLERGIES Allergen Reactions - Acetaminophen-Codei* Intolerance Sleep apnea - Effexor [Venlafaxin* Unknown - Nsaids (Non-Steroid* Other: See Comments Has not taken due to gastric bypass surgery in the past - Sulfamethazine Unknown Ophthalmic agents MEDICATIONS: amitriptyline (ELAVIL) 75 mg tablet Take 75 mg by mouth daily at bedtime. carisoprodol (SOMA) 350 mg tablet Take 350 mg by mouth four times daily. amphetamine-dextroamphetami ne 15 mg tablet Take 1 tablet by mouth twice daily. cholecalciferol, Vitamin D3, (VITAMIN D3) 1,250 mcg (50,000 unit) cap capsule Take 1 capsule by mouth two times a week. acetaminophen (TYLENOL EXTRA STRENGTH) 500 mg tablet Take 1,000 mg by mouth every 4 hours as needed. dexlansoprazole (DEXILANT ORAL) Take by mouth once daily. ALPRAZolam (XANAX) 0.5 mg tablet Take 0.5 mg by mouth four times daily as needed. sertraline (ZOLOFT) 100 mg tablet Take 200 mg by mouth once daily. oxyCODONE IR (ROXICODONE) 20 mg tab Take 1 tablet by mouth. Pregabalin (LYRICA) 200 mg capsule Take 200 mg by mouth three times daily. eletriptan (RELPAX) 40 mg tablet Take 40 mg by mouth as needed (migraine). may repeat in 2 hours if necessary albuterol HFA (PROVENTIL HFA, VENTOLIN HFA) 90 mcg/actuation inhaler albuterol sulfate HFA 90 mcg/actuation aerosol inhaler amitriptyline (ELAVIL) [address] (PROTONIX) 40 mg tablet Take 40 mg by mouth. sulfacetamide (BLEPH-10) 10 % ophthalmic solution sulfacetamide sodium 10 % eye drops SUMAtriptan (IMITREX) 100 mg tablet sumatriptan 100 mg tablet tobramycin (TOBREX) 0.3 % ophthalmic solution tobramycin 0.3 % eye drops instill 1 (ONE) DROP into the left eye FOUR TIMES DAILY (more content not included)... Normal [facility] Comp Metabolic Panelon 10-11 Albumin [Mass/Vol] 4.2 g/dL Normal 3.9-4.9 [facility] ALP [Catalytic activity/Vol] 102 U/L Normal 34-123 [facility] ALT [Catalytic activity/Vol] 7 U/L Normal 7-38 [facility] Anion gap [Moles/Vol] 10 mmol/L Normal 9-18 [facility] AST [Catalytic activity/Vol] 19 U/L Normal 13-35 [facility] Bilirubin [Mass/Vol] mg/dL Low 0.2-1.3 [facility] Calcium [Mass/Vol] 9.7 mg/dL Normal 8.5-10.2 [facility] Chloride [Moles/Vol] 98 mmol/L Normal 97-105 [facility] CO2 [Moles/Vol] 22 mmol/L Normal 22-30 [facility] Creatinine [Mass/Vol] 0.58 mg/dL Normal 0.58-0.96 [facility] eGFR- Amer. >60 Normal [facility] eGFR-All Other Races >60 Normal [facility] Comment on above: Result Comment: eGFR (Estimated GFR) Units of measure: mL/min/1.73 meters squared eGFR is derived from the reexpressed MDRD Study equation using the following parameters: serum creatinine, age, gender and race. The creatinine assay has been calibrated to be traceable to IDMS. An eGFR <60 mL/min/1.73m2 for >3 months is consistent with chronic kidney disease. Refer to KDOQI guidelines for clinical interpretation. In patients with unstable renal function, e.g. those with acute kidney injury, the eGFR may not accurately reflect actual GFR. Glucose [Mass/Vol] 106 mg/dL High 74-99 [facility] Comment on above: Result Comment: The [place] [employer] (ADA) provides guidance for cutoff values for fasting glucose and random glucose. The ADA defines fasting as no caloric intake for at least 8 hours. Fasting plasma glucose results between 100 to 125 mg/dL indicate increased risk for diabetes (prediabetes). Fasting plasma glucose results greater than or equal to 126 mg/dL meet the criteria for diagnosis of diabetes. In the absence of unequivocal hyperglycemia, results should be confirmed by repeat testing. In a patient with classic symptoms of hyperglycemia or hyperglycemic crisis, random plasma glucose results greater than or equal to 200 mg/dL meet the criteria for diagnosis of diabetes. Reference: Standards of Medical Care in Diabetes 2016, [place] [employer]. Diabetes Care. 2016.39(Suppl 1). Potassium [Moles/Vol] 4.2 mmol/L Normal 3.7-5.1 [facility] Protein [Mass/Vol] 7.2 g/dL Normal 6.3-8.0 [facility] Sodium [Moles/Vol] 130 mmol/L Low 136-144 [facility] Urea nitrogen [Mass/Vol] 3 mg/dL Low 7-21 [facility] Ferritinon 10-11-2020 Ferritin [Mass/Vol] 23.6 ng/mL Normal 14.7-205.1 [facility] Comment on above: Performed By: #### I RYAN, B12, SERFOL, FERR #### [address] [place] [address] Folate, Serumon 10-11-2020 Folate [Mass/Vol] 12.7 ng/mL Normal >4.7 [facility] Comment on above: Performed By: #### I RYAN, B12, SERFOL, FERR #### [place] [phone] Iron and TIBCon 10-11-2020 Iron [Mass/Vol] 22 ug/dL Low 41-186 [facility] Comment on above: Performed By: #### I RYAN, B12, SERFOL, FERR #### [address] [place] [phone] TIBC 386 ug/dL Normal 232-386 [facility] Comment on above: Performed By: #### I RYAN, B12, SERFOL, FERR #### [place] [phone] Transferrin Saturatn 6 % Low 15-57 [facility] Comment on above: Performed By: #### I RYAN, B12, SERFOL, FERR #### [place] [phone] LDon 10-11-2020 LD 182 U/L Normal 135-214 [facility] Remote CBCDIF (for [facility] use o nly)on 10-11-2020 Abs Baso 0.05 k/uL Normal <0.11 [facility] Abs [place] 0.67 k/uL Normal <0.87 [facility] Abs Neut 6.73 k/uL Normal 1.45-7.50 [facility] Absolute nRBC <0.01 Normal <0.01 [facility] Basophils/100 WBC (Bld) 0.5 % Normal [facility] DTYPE Auto Diff Normal [facility] Eosinophils (Bld) [#/Vol] 0.13 10*3/uL Normal <0.46 [facility] Eosinophils/100 WBC (Bld) 1.4 % Normal [facility] Erythrocyte distribution width (RBC) [Ratio] 18.4 % High 11.5-15.0 [facility] Hematocrit (Bld) [Volume fraction] 34.7 % Low 36.0-46.0 [facility] Hemoglobin (Bld) [Mass/Vol] 11.0 g/dL Low 11.5-15.5 [facility] Lymphocytes (Bld) [#/Vol] 2.00 10*3/uL Normal 1.00-4.00 [facility] Lymphocytes/100 WBC (Bld) 20.9 % Normal [facility] MCH 25.7 pG Low 26.0-34.0 [facility] MCHC (RBC) [Mass/Vol] 31.7 g/dL Normal 30.5-36.0 [facility] MCV (RBC) [Entitic vol] 81.1 fL Normal 80.0-100.0 [facility] Monocytes/100 WBC (Bld) 7.0 % Normal [facility] Neutrophils/100 WBC (Bld) 70.2 % Normal [facility] NRBCs 0.0 /100 WBC Normal 0 [facility] Platelet mean volume (Bld) [Entitic vol] 9.7 fL Normal 9.0-12.7 [facility] Platelets (Bld) [#/Vol] 338 10*3/uL Normal 150-400 [facility] RBC (Bld) [#/Vol] 4.28 10*6/uL Normal 3.90-5.20 [facility] WBC (Bld) [#/Vol] 9.58 10*3/uL Normal 3.70-11.00 [facility] Vitamin B12on 10-11-2020 Cobalamin (Vitamin B12) [Mass/Vol] 188 pg/mL Low 232-1245 [facility] Comment on above: Performed By: #### I RYAN, B12, SERFOL, FERR #### [facility] [address] [place], [place] [address] FLUORO FOR SURGICAL PROCEDUR ESon 02-09-2018 FLUORO FOR SURGICAL PROCEDURES EXAMINATION: FLUORO FOR SURGICAL PROCEDURESCLINICAL HISTORY: lumbar diskectomy COMPARISONS: None available.FINDINGS: 2 PA intraoperative spot images were obtained. The first shows metallic hemostat tip overlying the interspinous process space at L4-5. The second shows soft tissue retraction device and a hemostat directed toward the L4-5 intervertebral space.CONCLUSION: UNREMARKABLE INTRAOPERATIVE FLUOROSCOPY DOCUMENTATIONInterpreted by:FANG Angeligned by:Callum Salinas MD02/09/18inal result Normal [facility] Surgical Specimenon 02-10-20 18 Surgical Specimen Invalid Interpretation Code [facility] Comment on above: Result Comment: [place] [address] BFEBF SURGICAL PATHOLOGY REPORTPatient Name: CANDY BOOTH Accession No: [id number] Age Sex: 1970 Location: DIS ORPOOLNONAccount No: [id number] Collected: 02/09/2018Med Rec No: [id number] Received: 02/09/2018Attend Phys: PATRICK REJI Completed: 02/11/2018Perform Phys: PATRICK YOOFINAL DIAGNOSIS:DISC TISSUE, L4-5, LEFT-DEGENERATED CARTILAGE. SIVES/SIVELVINCLINICAL INFORMATION:L4-5 left HNP. Disk.SPECIMEN:DiscGROSS DESCRIPTION:Specimen container is labeled with the patient's name and designated spine . In formalin are multiple irregular shaggy fragments of villarreal andpink soft and firm tissue measuring in aggregate 3 x 2.5 x 0.5 cm.Majority of tissue is submitted in two cassettes. PUNEET/FLOYDT: [id number] ROMERO M.D. 02/11/2018 Electronically signed out by Page 1 of 1 Basic Metabolic Panelon 01-24 Anion gap 3 molar conc 12 mmol/L Normal 7-13 [facility] Calcium mass conc 9.2 mg/dL Normal 8.6-10.2 [facility] Chloride molar conc 102 mmol/L Normal 98-107 [facility] CO2 molar conc 25 mmol/L Normal 22-29 [facility] Creatinine mass conc 0.42 mg/dL Low 0.50-0.90 [facility] GFR/1.73 sq M predicted among blacks MDRD vol rate/area (S/P/Bld) mL/min/{1.73_m2} Normal >60 [facility] Comment on above: Result Comment: >60 mL/min/1.73m2 EGFR, calc. for ages 18 and older using theMDRD formula (not corrected for weight), is valid for stablerenal function. GFR/1.73 sq M.predicted MDRD vol rate/area mL/min/{1.73_m2} Normal >60 [facility] Comment on above: Result Comment: >60 mL/min/1.73m2 EGFR, calc. for ages 18 and older using theMDRD formula (not corrected for weight), is valid for stablerenal function. Glucose mass conc 82 mg/dL Normal 74-109 [facility] Potassium molar conc 4.2 mmol/L Normal 3.5-5.1 [facility] Sodium molar conc 139 mmol/L Normal 132-144 [facility] Urea nitrogen mass conc 6 mg/dL Normal 6-20 [facility] CBC With Platelet No Differe ntialon 02-06-2018 Erythrocyte distribution width Auto Ratio (RBC) 20.2 % Critically high 11.5-14.5 [facility] Hematocrit Auto Volume Fraction (Bld) 36.3 % Low 37.0-47.0 [facility] Hemoglobin mass conc (Bld) 11.5 g/dL Low 12.0-16.0 [facility] MCH Auto Entitic mass (RBC) 24.1 pg Low 27.0-31.3 [facility] MCHC Auto mass conc (RBC) 31.7 % Low 33.0-37.0 [facility] MCV Auto Entitic volume (RBC) 76.0 fL Low 82.0-100.0 [facility] Platelets Auto #/vol (Bld) 203 10*3/uL Normal 130-400 [facility] RBC Auto #/vol (Bld) 4.78 10*6/uL Normal 4.20-5.40 [facility] WBC Auto #/vol (Bld) 4.9 10*3/uL Normal 4.8-10.8 [facility] Partial Thromboplastin Timeo n 02-06-2018 aPTT Coag time (Bld) 26.6 s Normal 21.6-35.4 [facility] Comment on above: Result Comment: Hepa rin Therapeutic Range: 38.8 - 54.6 seconds. Prothrombin Timeon 8 INR Coag RelTime (PPP) 0.9 {INR} Normal [facility] Comment on above: Result Comment: Madhu mmended INR therapeutic ranges for oral anticoagulanttherapyProphylaxis/treatment of: INR Venous Thrombosis, Pulmonary Embolism 2.0-3Prevention of Systemic Embolism from: Atrial Fibrillation 2.0-3.0 Myocardial Infarction 2.0-3.0 Mechanical Prosthetics Heart Valves 2.5-3.5 Recurrent Systemic Embolism 2.5-3.5Guidelines for patients with coagulopathy, e.g. liver disease:Use the Protime resulted in seconds. Mild 12.9-17.0 sec Moderate 17.1-22.6 sec Severe G.T. 22.6 sec Prothrombin time (PT) Coag time (PPP) 9.4 s Low 9.6-12.3 [facility] Type and Screen Capture 3 sc rn cellon 02-06-2018 Bilirubin mass conc PATIENT: EMMY Acuña LOC: [facility] BILL# : [id number] : 1970 SEX: FORDERED BY: EMILY LUCERO ORDERED : 02/06/2018 07:42 COLLECTED: 02/06/2018 08:25ORDER : [id number] RECEIVED : 02/06/2018 08:25 --TEST NAME RESULT UNITS RANGES ABN FL STABORH Capture O NEG FAntibody 3 Cell Scrn Captu NEG F Normal [facility] Urinalysis, reflex to cultur constantin 02-06-2018 Bilirubin Ql (U) Negative Normal Negative [facility] Clarity Nom (U) Clear Normal Clear [facility] Color Nom (U) Yellow Normal Straw/Gregg [facility] Glucose Ql (U) Negative Normal Negative [facility] Hemoglobin Test strip Ql (U) Negative Normal Negative [facility] Ketones Ql (U) Negative Normal Negative [facility] Leukocyte esterase Test strip Ql (U) Negative Normal Negative [facility] Nitrite Test strip Ql (U) Negative Normal Negative [facility] pH Test strip (U) 6.0 [pH] Normal 5.0-9.0 [facility] Protein Test strip Ql (U) Negative Normal Negative [facility] Specific gravity Relative Density (U) 1.009 Normal 1.005-1.03 [facility] Urine Reflexed to Culture Not Indicated Normal [facility] Urobilinogen Test strip Qn (U) 0.2 {[place]'U}/dL Normal < 2.0 [facility] Hgb/Hcton 11-17-2017 Hematocrit (HCT) 35.8 % Low 36.3-47.1 [facility] Comment on above: Performed By: #### C DP, PT, LACWB, LIP, LIVP, FEBC, FERI ####[facility] [place] [address] Hemoglobin mass conc (Bld) 10.6 g/dL Low 11.9-15.1 [facility] Comment on above: Performed By: #### C DP, PT, LACWB, LIP, LIVP, FEBC, FERI ####[address] [address] Progress Noteon 11-17-2017 HIM IP Note OR Horse Buyer Normal [facility] Basic Metab w/rfx MGon 10-20 (cont.) Normal [facility] Comment on above: Result Comment: Aver age GFR for 40-49 years old: 99 mL/min/1.73sq mChronic Kidney Disease: <60 mL/min/1.73sq mKidney failure: <15 mL/min/1.73sq meGFR calculated using average adult body mass. Additional eGFR calculator available at:http://www.[employer]/multiple_crcl_2012.htm[address] [address] Performed By: #### C DP, PT, LACWB, LIP, LIVP, FEBC, FERI ####[address] [address] Anion gap 12 mmol/L Normal 02-09 [facility] Comment on above: Performed By: #### C DP, PT, LACWB, LIP, LIVP, FEBC, FERI ####[address] [address] BUN/CRE Ratio NOT REPORTED Normal 02-12 [facility] Comment on above: Performed By: #### C DP, PT, LACWB, LIP, LIVP, FEBC, FERI ####[address] [address] Calcium 8.3 mg/dL Low 8.6-10.4 [facility] Comment on above: Performed By: #### C DP, PT, LACWB, LIP, LIVP, FEBC, FERI ####[address] [address] Chloride 108 mmol/L High 98-107 [facility] Comment on above: Performed By: #### C DP, PT, LACWB, LIP, LIVP, FEBC, FERI ####[address] [address] CO2 23 mmol/L Normal 20-31 [facility] Comment on above: Performed By: #### C DP, PT, LACWB, LIP, LIVP, FEBC, FERI ####[address] [address] Creatinine 0.35 mg/dL Low 0.50-0.90 [facility] Comment on above: Performed By: #### C DP, PT, LACWB, LIP, LIVP, FEBC, FERI ####[address] [address] eGFR (non-black) mL/min/{1.73_m2} Normal >60 [facility] Comment on above: Performed By: #### C DP, PT, LACWB, LIP, LIVP, FEBC, FERI ####[address] [address] Glucose mass conc 79 mg/dL Normal 70-99 [facility] Comment on above: Performed By: #### C DP, PT, LACWB, LIP, LIVP, FEBC, FERI ####[address] [address] Potassium molar conc 3.6 mmol/L Low 3.7-5.[address] [facility] Comment on above: Performed By: #### C DP, PT, LACWB, LIP, LIVP, FEBC, FERI ####[address] [address] Sodium 143 mmol/L Normal 135-144 [facility] Comment on above: Performed By: #### C DP, PT, LACWB, LIP, LIVP, FEBC, FERI ####[address] [address] Staging: NOT REPORTED Normal [facility] Comment on above: Performed By: #### C DP, PT, LACWB, LIP, LIVP, FEBC, FERI ####[address] [address] Urea nitrogen 3 mg/dL Low 6-20 [facility] Comment on above: Performed By: #### C DP, PT, LACWB, LIP, LIVP, FEBC, FERI ####[address] [address] CBCon 10-20-2017 Erythrocyte distribution width Auto Ratio (RBC) 17.1 % High 11.8-14.4 [facility] Comment on above: Performed By: #### C DP, PT, LACWB, LIP, LIVP, FEBC, FERI ####[address] [address] Erythrocytes (RBC) 0.0 per 100 WBC Normal 0.0 [facility] Comment on above: Result Comment: [address] [place] [address] Performed By: #### C DP, PT, LACWB, LIP, LIVP, FEBC, FERI ####[address] [address] Erythrocytes (RBC) 3.43 10*6/uL Low 3.95-5.[address] [facility] Comment on above: Performed By: #### C DP, PT, LACWB, LIP, LIVP, FEBC, FERI ####[address] [address] Hematocrit (HCT) 28.1 % Low 36.3-47.1 [facility] Comment on above: Performed By: #### C DP, PT, LACWB, LIP, LIVP, FEBC, FERI ####[address] [address] Hemoglobin mass conc (Bld) 8.8 g/dL Low 11.9-15.1 [facility] Comment on above: Performed By: #### C DP, PT, LACWB, LIP, LIVP, FEBC, FERI ####[address] [address] MCH 25.7 pg Normal 25.2-33.5 [facility] Comment on above: Performed By: #### C DP, PT, LACWB, LIP, LIVP, FEBC, FERI ####[address] [address] MCHC mass conc (RBC) 31.3 g/dL Normal 28.4-34.[address] [facility] Comment on above: Performed By: #### C DP, PT, LACWB, LIP, LIVP, FEBC, FERI ####[address] [address] MCV 81.9 fL Low 82.6-102.9 [facility] Comment on above: Performed By: #### C DP, PT, LACWB, LIP, LIVP, FEBC, FERI ####[address] [address] Platelet mean volume (PMV) 10.3 fL Normal 8.1-13.5 [facility] Comment on above: Performed By: #### C DP, PT, LACWB, LIP, LIVP, FEBC, FERI ####[address] [address] Platelets 224 10*3/uL Normal 138-453 [facility] Comment on above: Performed By: #### C DP, PT, LACWB, LIP, LIVP, FEBC, FERI ####[address] [address] WBC (Leukocytes) 6.0 10*3/uL Normal 3.5-11.3 [facility] Comment on above: Performed By: #### C DP, PT, LACWB, LIP, LIVP, FEBC, FERI ####[address] [address] Calcium, Ionicon 10-20-2017 Calcium 1.22 mmol/L Normal 1.13-1.33 [facility] Comment on above: Result Comment: [facility] [address] [place] [address] Performed By: #### C DP, PT, LACWB, LIP, LIVP, FEBC, FERI ####[address] [address] Hgb/Hcton 10-20-2017 Hematocrit (HCT) 25.6 % Low 36.3-47.1 [facility] Comment on above: Result Comment: [facility] [address] [place] [address] Performed By: #### C DP, PT, LACWB, LIP, LIVP, FEBC, FERI ####[address] [address] Hematocrit (HCT) 30.3 % Low 36.3-47.1 [facility] Comment on above: Result Comment: [facility] [address] [place] [address] Performed By: #### C DP, PT, LACWB, LIP, LIVP, FEBC, FERI ####[address] [address] Hemoglobin mass conc (Bld) 8.0 g/dL Low 11.9-15.1 [facility] Comment on above: Performed By: #### C DP, PT, LACWB, LIP, LIVP, FEBC, FERI ####[address] [address] Hemoglobin mass conc (Bld) 9.2 g/dL Low 11.9-15.1 [facility] Comment on above: Performed By: #### C DP, PT, LACWB, LIP, LIVP, FEBC, FERI ####[address] [address] Op Noteon 10-20-2017 HIM IP Note OR Horse Buyer Normal [facility] PTon 10-20-2017 INR Coag RelTime (PPP) 0.9 {INR} Normal [facility] Comment on above: Result Comment: Ther apeutic Range: Moderate Anticoagulant Intensity: INR = 2.0-3.0 High Anticoagulant Intensity: INR = 2.5-3.[address] [address] Performed By: #### C DP, PT, LACWB, LIP, LIVP, FEBC, FERI ####[address] [address] Prothrombin time (PT) Coag time (PPP) 10.0 s Normal 9.0-12.0 [facility] Comment on above: Performed By: #### C DP, PT, LACWB, LIP, LIVP, FEBC, FERI ####[address] [address] Plan of Careon 10-20-2017 HIM IP Note OR Horse Buyer Normal [facility] Progress Noteon 10-20-2017 HIM IP Note OR Horse Buyer Normal [facility] Basic Metabolic Profon 10-19 (cont.) Normal [facility] Comment on above: Result Comment: Aver age GFR for 40-49 years old: 99 mL/min/1.73sq mChronic Kidney Disease: <60 mL/min/1.73sq mKidney failure: <15 mL/min/1.73sq meGFR calculated using average adult body mass. Additional eGFR calculator available at:http://www.[employer]/multiple_crcl_2012.htmTorrance [facility] [address] [place] [address] Performed By: #### C DP, PT, LACWB, LIP, LIVP, FEBC, FERI ####[address] [address] Anion gap 9 mmol/L Normal 9-17 [facility] Comment on above: Performed By: #### C DP, PT, LACWB, LIP, LIVP, FEBC, FERI ####[address] [address] BUN/CRE Ratio NOT REPORTED Normal -20 [facility] Comment on above: Performed By: #### C DP, PT, LACWB, LIP, LIVP, FEBC, FERI ####[address] [address] Calcium 7.3 mg/dL Low 8.6-10.4 [facility] Comment on above: Performed By: #### C DP, PT, LACWB, LIP, LIVP, FEBC, FERI ####[address] [address] Chloride 114 mmol/L High 98-107 [facility] Comment on above: Performed By: #### C DP, PT, LACWB, LIP, LIVP, FEBC, FERI ####[address] [address] CO2 21 mmol/L Normal 20- [facility] Comment on above: Performed By: #### C DP, PT, LACWB, LIP, LIVP, FEBC, FERI ####[address] [address] Creatinine 0.36 mg/dL Low 0.50-0.90 [facility] Comment on above: Performed By: #### C DP, PT, LACWB, LIP, LIVP, FEBC, FERI ####[address] [address] eGFR (non-black) mL/min/{1.73_m2} Normal >60 [facility] Comment on above: Performed By: #### C DP, PT, LACWB, LIP, LIVP, FEBC, FERI ####[address] [address] Glucose mass conc 78 mg/dL Normal 70-99 [facility] Comment on above: Performed By: #### C DP, PT, LACWB, LIP, LIVP, FEBC, FERI ####[address] [address] Potassium molar conc 3.6 mmol/L Low 3.7-5.[address] [facility] Comment on above: Performed By: #### C DP, PT, LACWB, LIP, LIVP, FEBC, FERI ####[address] [address] Sodium 144 mmol/L Normal 135-144 [facility] Comment on above: Performed By: #### C DP, PT, LACWB, LIP, LIVP, FEBC, FERI ####[address] [place] [address] Staging: NOT REPORTED Normal [facility] Comment on above: Performed By: #### C DP, PT, LACWB, LIP, LIVP, FEBC, FERI ####[address] [place] [address] Urea nitrogen 8 mg/dL Normal 6-20 [facility] Comment on above: Performed By: #### C DP, PT, LACWB, LIP, LIVP, FEBC, FERI ####[facility] [address] [place] [address] Hgb/Hcton 10-19-2017 Hematocrit (HCT) 19.8 % Low 36.3-47.1 [facility] Comment on above: Result Comment: [facility] [address] [place] [address] Performed By: #### C DP, PT, LACWB, LIP, LIVP, FEBC, FERI ####[facility] [address] [place] [address] Hematocrit (HCT) 26.4 % Low 36.3-47.1 [facility] Comment on above: Result Comment: [facility] [address] [place] [address] Performed By: #### C DP, PT, LACWB, LIP, LIVP, FEBC, FERI ####[facility] [address] [place] [address] Hematocrit (HCT) 27.3 % Low 36.3-47.1 [facility] Comment on above: Result Comment: [facility] [address] [place] [address] Performed By: #### C DP, PT, LACWB, LIP, LIVP, FEBC, FERI ####[address] [address] Hematocrit (HCT) 25.0 % Low 36.3-47.1 [facility] Comment on above: Result Comment: [facility] [address] [place] [address] Performed By: #### C DP, PT, LACWB, LIP, LIVP, FEBC, FERI ####[address] [address] Hematocrit (HCT) 29.1 % Low 36.3-47.1 [facility] Comment on above: Result Comment: [facility] [address] [place] [address] Performed By: #### C DP, PT, LACWB, LIP, LIVP, FEBC, FERI ####[address] [address] Hemoglobin mass conc (Bld) 5.9 g/dL Critically low 11.9-15.1 [facility] Comment on above: Performed By: #### C DP, PT, LACWB, LIP, LIVP, FEBC, FERI ####[address] [address] Hemoglobin mass conc (Bld) 8.0 g/dL Low 11.9-15.1 [facility] Comment on above: Performed By: #### C DP, PT, LACWB, LIP, LIVP, FEBC, FERI ####[address] [address] Hemoglobin mass conc (Bld) 8.4 g/dL Low 11.9-15.1 [facility] Comment on above: Performed By: #### C DP, PT, LACWB, LIP, LIVP, FEBC, FERI ####[facility] [place] [address] Hemoglobin mass conc (Bld) 7.9 g/dL Low 11.9-15.1 [facility] Comment on above: Performed By: #### C DP, PT, LACWB, LIP, LIVP, FEBC, FERI ####[address] [address] Hemoglobin mass conc (Bld) 9.0 g/dL Low 11.9-15.1 [facility] Comment on above: Performed By: #### C DP, PT, LACWB, LIP, LIVP, FEBC, FERI ####[facility] [place] [address] History and Physicalon 10-19 HIM IP Note OR Horse Buyer Normal [facility] HIM IP Note OR Horse Buyer Normal [facility] K (Potassium)on 10-19-2017 Potassium molar conc 3.5 mmol/L Low 3.7-5.[address] [facility] Comment on above: Result Comment: [facility] [address] [place] [address] Performed By: #### C DP, PT, LACWB, LIP, LIVP, FEBC, FERI ####[facility] [place] [address] MRSA, DNA, Nasalon 8 MRSA, DNA, Nasal NEGATIVE: MRSA DNA n ot detected by nucleic acid amplification. Normal NMRSAA [facility] Comment on above: Result Comment: Resu lts should be used as an adjunct to nosocomial control efforts to identify patients needing enhanced precautions.The test is not intended to identify patients with staphylococcal infections. Results should not be used to guide or monitor treatment for MRSA infections.[address] [address] Performed By: #### C DP, PT, LACWB, LIP, LIVP, FEBC, FERI ####[facility] [place] [address] Op Noteon 10-19-2017 HIM IP Note OR Horse Buyer Normal [facility] Plan of Careon 10-19-2017 HIM IP Note OR Horse Buyer Normal [facility] HIM IP Note OR Horse Buyer Normal [facility] HIM IP Note OR Horse Buyer Normal [facility] Progress Noteon 10-19-2017 HIM IP Note OR Horse Buyer Normal [facility] HIM IP Note OR Horse Buyer Normal [facility] Troponinon 10-19-2017 Troponin I.cardiac mass conc Normal [facility] Comment on above: Result Comment: Refe rence Range: <0.03 Within reference range. 0.03-0.09 Possible myocardial damage.Repeat at appropriate intervals to rule out chronic elevation. >= 0.10 Indicative of myocardial damage.Patients with high levels of Biotin oral intake (i.e >5mg/day) may have falsely decreased Troponin T levels. Samples collected within 8 hours of biotin intake may require additional information for diagnosis.[address] [address] Performed By: #### C DP, PT, LACWB, LIP, LIVP, FEBC, FERI ####[address] [address] Troponin T.cardiac mass conc ug/L Normal <0.03 [facility] Comment on above: Result Comment: Trop onin T results cannot be compared to Troponin-I results. Performed By: #### C DP, PT, LACWB, LIP, LIVP, FEBC, FERI ####[address] [address] Type + Screenon 10-19-2017 Type + Screen Sample Expiration 10/21/2017 Arm Band Number [id number] ABO/Rh(D) O NEGATIVE Antibody Screen NEGATIVE Unit Number [id number] Blood Component Type Leukocyte Reduced Red Cell Unit Division 00 Status of Unit TRANSFUSED Transfusion Status OK TO TRANSFUSE Crossmatch Result COMPATIBLE[address] [address] Unit Number [id number] Blood Component Type Leukocyte Reduced Red Cell Unit Division 00 Status of Unit TRANSFUSED Transfusion Status OK TO TRANSFUSE Crossmatch Result COMPATIBLE Normal [facility] Comment on above: Performed By: #### T YS ####[address] [address] XR CHEST PORTABLEon 10-20-19 18 XR CHEST PORTABLE EXAMINATION:SINGLE V IEW OF THE CHEST10/18/2017 9:01 pmCOMPARISON:None.HISTORY:O RDERING SYSTEM PROVIDED HISTORY: DYSPNEATECHNOLOGIST PROVIDED HISTORY:Reason for exam:->DYSPNEAFINDINGS:The cardiac silhouette is within normal limits for size. The pulmonaryvasculature is within normal limits. There is no focal consolidation, pleuraleffusion or pneumothorax. The visualized osseous structures demonstrate noacute abnormality.IMPRESSION: No acute cardiopulmonary abnormality.Interpreted by:FANG Marcelinoigned by:Ibrahima Blanco MD10/18/17inal result Normal [facility] Blood Bank Specimenon 2017 Blood Bank Specimen NOT REPORTED Normal [facility] CBC with Diffon 10-18-2017 Abs. Basophil 0.03 k/uL Normal 0.00-0.20 [facility] Comment on above: Performed By: #### C DP, PT, LACWB, LIP, LIVP, FEBC, FERI ####[place] [address] Abs.Neutrophil (Seg) 5.42 k/uL Normal 1.50-8.[address] [facility] Comment on above: Performed By: #### C DP, PT, LACWB, LIP, LIVP, FEBC, FERI ####[place] [address] Auto Diff Performed NOT REPORTED Normal [facility] Comment on above: Performed By: #### C DP, PT, LACWB, LIP, LIVP, FEBC, FERI ####[address] [address] Basophils/100 WBC Auto (Bld) 0 % Normal 0-2 [facility] Comment on above: Performed By: #### C DP, PT, LACWB, LIP, LIVP, FEBC, FERI ####[place] [address] Eosinophils 10*3/uL Normal 0.00-0.44 [facility] Comment on above: Performed By: #### C DP, PT, LACWB, LIP, LIVP, FEBC, FERI ####[facility] [address] [place] [address] Eosinophils/100 leukocytes 0 % Low 1-4 [facility] Comment on above: Performed By: #### C DP, PT, LACWB, LIP, LIVP, FEBC, FERI ####[address] [address] Erythrocyte distribution width Auto Ratio (RBC) 17.1 % High 11.8-14.4 [facility] Comment on above: Performed By: #### C DP, PT, LACWB, LIP, LIVP, FEBC, FERI ####[address] [address] Erythrocyte morphology ANISOCYTOSIS PRESENT Normal [facility] Comment on above: Performed By: #### C DP, PT, LACWB, LIP, LIVP, FEBC, FERI ####[address] [address] Erythrocytes (RBC) 2.77 10*6/uL Low 3.95-5.[address] [facility] Comment on above: Performed By: #### C DP, PT, LACWB, LIP, LIVP, FEBC, FERI ####[address] [address] Erythrocytes (RBC) 0.0 per 100 WBC Normal 0.0 [facility] Comment on above: Performed By: #### C DP, PT, LACWB, LIP, LIVP, FEBC, FERI ####[address] [address] Granulocytes/100 WBC (Bld) 0.03 k/uL Normal 0.00-0.30 [facility] Comment on above: Result Comment: [address] [address] Performed By: #### C DP, PT, LACWB, LIP, LIVP, FEBC, FERI ####[address] [address] Hematocrit (HCT) 23.4 % Low 36.3-47.1 [facility] Comment on above: Performed By: #### C DP, PT, LACWB, LIP, LIVP, FEBC, FERI ####[address] [address] Hemoglobin mass conc (Bld) 7.1 g/dL Low 11.9-15.1 [facility] Comment on above: Performed By: #### C DP, PT, LACWB, LIP, LIVP, FEBC, FERI ####[address] [address] Immature granulocytes #/vol (Bld) 0 % Normal 0 [facility] Comment on above: Performed By: #### C DP, PT, LACWB, LIP, LIVP, FEBC, FERI ####[address] [address] Lymphocytes 1.27 10*3/uL Normal 1.10-3.70 [facility] Comment on above: Performed By: #### C DP, PT, LACWB, LIP, LIVP, FEBC, FERI ####[address] [address] Lymphocytes/100 leukocytes 18 % Low 24-43 [facility] Comment on above: Performed By: #### C DP, PT, LACWB, LIP, LIVP, FEBC, FERI ####[address] [address] MCH 25.6 pg Normal 25.2-33.5 [facility] Comment on above: Performed By: #### C DP, PT, LACWB, LIP, LIVP, FEBC, FERI ####[address] [address] MCHC mass conc (RBC) 30.3 g/dL Normal 28.4-34.[address] [facility] Comment on above: Performed By: #### C DP, PT, LACWB, LIP, LIVP, FEBC, FERI ####[address] [address] MCV 84.5 fL Normal 82.6-102.9 [facility] Comment on above: Performed By: #### C DP, PT, LACWB, LIP, LIVP, FEBC, FERI ####[address] [address] Monocytes 0.35 10*3/uL Normal 0.10-1.20 [facility] Comment on above: Performed By: #### C DP, PT, LACWB, LIP, LIVP, FEBC, FERI ####[address] [address] Monocytes/100 leukocytes 5 % Normal 3-12 [facility] Comment on above: Performed By: #### C DP, PT, LACWB, LIP, LIVP, FEBC, FERI ####[address] [address] Neutrophil (Seg) 76 % High 36-65 [facility] Comment on above: Performed By: #### C DP, PT, LACWB, LIP, LIVP, FEBC, FERI ####[address] [address] Platelet mean volume (PMV) 10.5 fL Normal 8.1-13.5 [facility] Comment on above: Performed By: #### C DP, PT, LACWB, LIP, LIVP, FEBC, FERI ####[address] [address] Platelets NOT REPORTED Normal [facility] Comment on above: Performed By: #### C DP, PT, LACWB, LIP, LIVP, FEBC, FERI ####[address] [address] Platelets 212 10*3/uL Normal 138-453 [facility] Comment on above: Performed By: #### C DP, PT, LACWB, LIP, LIVP, FEBC, FERI ####[address] [address] WBC (Leukocytes) 7.1 10*3/uL Normal 3.5-11.3 [facility] Comment on above: Performed By: #### C DP, PT, LACWB, LIP, LIVP, FEBC, FERI ####[address] [address] WBC Morphology NOT REPORTED Normal [facility] Comment on above: Performed By: #### C DP, PT, LACWB, LIP, LIVP, FEBC, FERI ####[address] [address] Ferritinon 10-18-2017 Ferritin 4 ug/L Low 13-150 [facility] Comment on above: Result Comment: [address] [address] Performed By: #### C DP, PT, LACWB, LIP, LIVP, FEBC, FERI ####[address] [address] History and Physicalon 10-18 HIM 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 Comment on above: Performed By: #### C DP, PT, LACWB, LIP, LIVP, FEBC, FERI ####[address] [address] Unbound Fe Bind Cap 226 ug/dL Normal 112-347 [facility] Comment on above: Result Comment: [address] [address] Performed By: #### C DP, PT, LACWB, LIP, LIVP, FEBC, FERI ####[address] [address] Lactic Acid,Whole Blon 10-18 Lactic Acid,Whole Bl 0.7 mmol/L Normal 0.7-2.[address] [facility] Comment on above: Result Comment: [facility] [employer] [address] [place] [address] Performed By: #### C DP, PT, LACWB, LIP, LIVP, FEBC, FERI ####[address] [address] Lipaseon 10-18-2017 Lipase 23 U/L Normal 13-60 [facility] Comment on above: Result Comment: [facility] [employer] [address] [place] [id number] Performed By: #### C DP, PT, LACWB, LIP, LIVP, FEBC, FERI ####[address] [address] Liver Profileon 10-18-2017 Alanine aminotransferase (ALT) U/L Low 5-33 [facility] Comment on above: Performed By: #### C DP, PT, LACWB, LIP, LIVP, FEBC, FERI ####[address] [address] Albumin 2.9 g/dL Low 3.5-5.2 [facility] Comment on above: Performed By: #### C DP, PT, LACWB, LIP, LIVP, FEBC, FERI ####[address] [address] Albumin/Globulin Ratio 1.6 {ratio} Normal 1.0-2.5 [facility] Comment on above: Result Comment: [address] [address] Performed By: #### C DP, PT, LACWB, LIP, LIVP, FEBC, FERI ####[address] [address] Alkaline Phos 60 U/L Normal 35-104 [facility] Comment on above: Performed By: #### C DP, PT, LACWB, LIP, LIVP, FEBC, FERI ####[address] [address] Aspartate aminotransferase (AST) 10 U/L Normal <32 [facility] Comment on above: Performed By: #### C DP, PT, LACWB, LIP, LIVP, FEBC, FERI ####[address] [address] Bilirubin (direct) mg/dL Normal <0.31 [facility] Comment on above: Performed By: #### C DP, PT, LACWB, LIP, LIVP, FEBC, FERI ####[address] [address] Bilirubin Ql (U) 0.30 mg/dL Normal 0.3-1.2 [facility] Comment on above: Performed By: #### C DP, PT, LACWB, LIP, LIVP, FEBC, FERI ####[address] [address] Bilirubin, Indirect CANNOT BE CALCULATED Normal 0.00-1 .00 [facility] Comment on above: Performed By: #### C DP, PT, LACWB, LIP, LIVP, FEBC, FERI ####[address] [address] Globulin NOT REPORTED Normal 1.5-3.8 [facility] Comment on above: Performed By: #### C DP, PT, LACWB, LIP, LIVP, FEBC, FERI ####[address] [address] Protein 4.7 g/dL Low 6.4-8.3 [facility] Comment on above: Performed By: #### C DP, PT, LACWB, LIP, LIVP, FEBC, FERI ####[address] [address] MRSA, DNA, Nasalon 8 Specimen Description .NASAL SWAB Normal [facility] Comment on above: Performed By: #### C DP, PT, LACWB, LIP, LIVP, FEBC, FERI ####[address] [address] PTon 10-18-2017 INR Coag RelTime (PPP) 1.0 {INR} Normal [facility] Comment on above: Result Comment: Ther apeutic Range: Moderate Anticoagulant Intensity: INR = 2.0-3.0 High Anticoagulant Intensity: INR = 2.5-3.[address] [address] Performed By: #### C DP, PT, LACWB, LIP, LIVP, FEBC, FERI ####[facility] [id number] [place], [place] [id number] Prothrombin time (PT) Coag time (PPP) 10.6 s Normal 9.0-12.0 [facility] Comment on above: Performed By: #### C DP, PT, LACWB, LIP, LIVP, FEBC, FERI ####[facility] [id number] [place], [place] [id number] Social History Date Type Detail Facility Start: 07-01-2023 Alcohol intake Current drinke r of alcohol (finding) [facility] Work Phone: Start: 06-28-2023 Tobacco smoking stat us NHIS Smoker (finding) [facility] Start: 05-27-2023 End: 07-01-2023 Sex Assigned At Female [facility] [place] Start: 05-27-2023 End: 09-22-2023 Tobacco smoking status NHIS Occasional tobacco smoker [facility] Work Phone: Start: 05-27-2023 End: 07-01-2023 Cigarettes smoked current (pack per day) - Reported 0.5 [facility] Work Phone: Start: 05-27-2023 Tobacco use and exposure Smokeless tobacco non-user [facility] Work Phone: Start: 05-27-2023 Alcohol intake Not Asked [facility] Work Phone: Start: 05-27-2023 Alcohol Comment rarely [facility] Work Phone: Start: 05-17-2023 End: 07-15-2023 Exposure to SARS-CoV-2 (event) Not sure [facility] Start: 11-23-2021 Tobacco smoking status Heavy t obacco smoker (finding) [facility] [place] Start: 1970 Sex Assigned At Not on file [facility] Work Phone: Start: 1970 Sex Assigned At Female F [facility] Tobacco smoking status Never [facility] [place] History of tobacco use Cigarette Smoker [facility] Work Phone: Vital Signs Date Time Vital Sign Value Performing Clinician Facility 12-18-2023 13:49-0400 Body height 167.64 cm [facility] 12-18-2023 13:49-0400 Body mass index (BMI) [Ratio] 29.3 kg/m2 [facility] 12-18-2023 13:49-0400 Body weight 82.55 kg [facility] 12-18-2023 13:49-0400 Diastolic blood pressure 61 mm[Hg] [facility] 12-18-2023 13:49-0400 Heart rate 128 /min [facility] 12-18-2023 13:49-0400 Systolic blood pressure 85 mm[Hg] [facility] 12-11-2023 16:13-0400 Body height 167.64 cm [facility] 12-11-2023 16:13-0400 Body mass index (BMI) [Ratio] 32 kg/m2 [facility] 12-11-2023 16:13-0400 Body temperature 97 [degF] [facility] 12-11-2023 16:13-0400 Body weight 90 kg [facility] 12-11-2023 16:13-0400 Diastolic blood pressure 78 mm[Hg] [facility] 12-11-2023 16:13-0400 Heart rate 117 /min [facility] 12-11-2023 16:13-0400 Systolic blood pressure 123 mm[Hg] [facility] 10-14-2023 16:06-0400 Body temperature 97.9 [degF] [facility] 10-14-2023 16:06-0400 Heart rate 116 /min [facility] 10-14-2023 16:06-0400 SaO2% (BldA) [Mass fraction] 89 % [facility] 09-22-2023 14:17-0400 Body height 167.64 cm [facility] 09-22-2023 14:17-0400 Diastolic blood pressure 77 mm[Hg] [facility] 09-22-2023 14:17-0400 Heart rate 66 /min [facility] 09-22-2023 14:17-0400 Systolic blood pressure 109 mm[Hg] [facility] 09-12-2023 09:25-0400 Body height 167.64 cm [facility] 09-12-2023 09:25-0400 Body mass index (BMI) [Ratio] 31.3 kg/m2 [facility] 09-12-2023 09:25-0400 Body temperature 97.3 [degF] [facility] 09-12-2023 09:25-0400 Body weight 88 kg [facility] 09-12-2023 09:25-0400 Diastolic blood pressure 68 mm[Hg] [facility] 09-12-2023 09:25-0400 Heart rate 113 /min [facility] 09-12-2023 09:25-0400 Systolic blood pressure 103 mm[Hg] [facility] 08-26-2023 15:11-0400 Body height 167.64 cm [facility] 08-26-2023 15:11-0400 Body mass index (BMI) [Ratio] 30.4 kg/m2 [facility] 08-26-2023 15:11-0400 Body weight 85.5 kg [facility] 08-26-2023 15:11-0400 Diastolic blood pressure 65 mm[Hg] [facility] 08-26-2023 15:11-0400 Heart rate 121 /min [facility] 08-26-2023 15:11-0400 Systolic blood pressure 95 mm[Hg] [facility] 07-15-2023 12:00-0500 Diastolic blood pressure 56 mm[Hg] [address] 07-15-2023 12:00-0500 Heart rate 65 /min [address] 07-15-2023 12:00-0500 Respiratory rate 20 /min [address] 07-15-2023 12:00-0500 Systolic blood pressure 90 mm[Hg] [address] 07-15-2023 11:56-0500 SaO2% (BldA) [Mass fraction] 94 % [address] 07-01-2023 14:27-0500 Diastolic blood pressure 98 mm[Hg] Quan Hunter MD Work Phone: [facility] 07-01-2023 14:27-0500 Heart rate 110 /min Quan Hunter MD Work Phone: [facility] 07-01-2023 14:27-0500 Systolic blood pressure 124 mm[Hg] Quan Hunter MD Work Phone: [facility] 06-13-2023 12:53-0500 Body height 162.[address] 06-13-2023 12:53-0500 Body mass index (BMI) [Ratio] 32.61 kg/m2 [address] 06-13-2023 12:53-0500 Body weight 86.[address] 06-13-2023 12:53-0500 Diastolic blood pressure 60 mm[Hg] [address] 06-13-2023 12:53-0500 Systolic blood pressure 110 mm[Hg] [address] 05-27-2023 14:04-0500 Body height 162.6 cm Quan Hunter MD Work Phone: [facility] 05-27-2023 14:04-0500 Body mass index (BMI) [Ratio] 32.77 kg/m2 Quan Hunter MD Work Phone: [facility] 05-27-2023 14:04-0500 Body weight 86.59 kg Quan Hunter MD Work Phone: [facility] 05-27-2023 14:04-0500 Diastolic blood pressure 82 mm[Hg] Quan Hunter MD Work Phone: [facility] 05-27-2023 14:04-0500 Heart rate 112 /min Quan Hunter MD Work Phone: [facility] 05-27-2023 14:04-0500 Systolic blood pressure 122 mm[Hg] Quan Hunter MD Work Phone: [facility] 03-13-2023 15:30-0400 Body height 167.64 cm Maureen Mitchell Other [employer] Other 03-13-2023 15:30-0400 Body mass index (BMI) [Ratio] 30.99 kg/m2 Maureen Mitchell Other [employer] Other 03-13-2023 15:30-0400 Body weight 87.09 kg Maureen Mitchell Other [employer] Other 03-13-2023 15:30-0400 Diastolic blood pressure 67 mm[Hg] Maureen Mitchell Other [employer] Other 03-13-2023 15:30-0400 Systolic blood pressure 106 mm[Hg] Maureen Mitchell Other [employer] Other 07-30-2022 15:45-0500 Body height 167.64 cm Maureen Mitchell Other [employer] Other 07-30-2022 15:45-0500 Body mass index (BMI) [Ratio] 33.25 kg/m2 Maureen Mitchell Other [employer] Other 07-30-2022 15:45-0500 Body weight 93.44 kg Maureen Mitchell Other [employer] Other 07-30-2022 15:45-0500 Diastolic blood pressure 92 mm[Hg] Maureen Mitchell Other [employer] Other 07-30-2022 15:45-0500 Systolic blood pressure 158 mm[Hg] Maureen Mitchell Other [employer] Other 11-23-2021 14:27-0400 Blood Pressure Location [facility] [place] 11-23-2021 14:27-0400 Diastolic blood pressure 86 mm[Hg] [facility] [place] 11-23-2021 14:27-0400 Heart rate 72 /min [facility] [place] 11-23-2021 14:27-0400 Respiratory rate 16 /min [facility] [place] 11-23-2021 14:27-0400 Systolic blood pressure 126 mm[Hg] [facility] [place] Functional Status Date Assessment Result Facility 11-23-2021 Functional Status N/A [facility] [place] Clinical Notes 10-11-2020 to 07-15-2023 Result Encounter Note - Quan Hunter MD - 07/15/2023 11:15 AM Chantel Vásquez RN - 07/15/2023 11:15 AM Chantel Vásquez RN - 07/15/2023 11:15 AM Chantel Vásquez RN - 07/15/2023 11:08 AM EST Note Date & Type Note Facility 07-15-2023 Miscellaneous Notes CTA shows very minimal atherosclerosis with no significant stenosis. Recommend routine follow-up and continue to current treatment. documented in this encounter [facility] Work Phone: 07-15-2023 Nurse Note Post CCTA pt denies feeling dizzy or lightheaded, denies headache. Steady on feet, skin warm pink and dry. Pt verbalized understanding of increased water intake x24 hours, educated on side effects of medications. HL removed with tip intact, manual pressure held until hemostasis achieved, 2x2 and coban to site. Pt DC home to self care with family [facility] Work Phone: 07-15-2023 Nurse Note Post CCTA pt denies feeling dizzy or lightheaded, denies headache. Steady on feet, skin warm pink and dry. Pt verbalized understanding of increased water intake x24 hours, educated on side effects of medications. HL removed with tip intact, manual pressure held until hemostasis achieved, 2x2 and coban to site. Pt DC home to self care with family Pt. Unable to tolerate deep breathing excercises for HR control. She states that holding her breath makes her chest hurt documented in this encounter [facility] Work Phone: 07-15-2023 Nurse Note Post CCTA pt denies feeling dizzy or lightheaded, denies headache. Steady on feet, skin warm pink and dry. Pt verbalized understanding of increased water intake x24 hours, educated on side effects of medications. HL removed with tip intact, manual pressure held until hemostasis achieved, 2x2 and coban to site. Pt DC home to self care with family Pt. Unable to tolerate deep breathing excercises for HR control. She states that holding her breath makes her chest hurt documented in this encounter [facility] Work Phone: 07-15-2023 Progress note Formatting of t his note might be different from the original. CTA shows very minimal atherosclerosis with no significant stenosis. Recommend routine follow-up and continue to current treatment. [facility] Work Phone: 07-15-2023 Nurse Note Pt. Unable to tolerate deep breathing excercises for HR control. She states that holding her breath makes her chest hurt [facility] Work Phone: 07-07-2023 Evaluation note Encounter Date Diagnosis Assessment Notes Jun, Lumbar degenerative disc disease (ICD-10 - M51.36) Jun, Medication management (ICD-10 - Z79.899) [employer] Other 02-06-2024 History of Present illness Narrative* Quan Hunter MD - 07/01/2023 2:00 PM EST CARDIOLOGY OFFICE VISIT CHIEF COMPLAINT Chief Complaint Patient presents with Patient here for follow up Echo HISTORY OF PRESENT ILLNESS Candy Booth is a 52 y.o. year old female patient with history of a mildly dilated ascending aorta measuring about 4.[address] scan. She also has increased shortness of breath and resting tachycardia, likely secondary to extreme anxiety for which she is on multiple medications. She complains of some intermittent chest pain that does not seem to be related to exertion. She denies orthopnea proximal Dyspnea. Echocardiogram from June 13, 2023 shows low normal EF of 50% with some apical septal apical lateral wall motion abnormalities and moderate LVH. There is mild to moderate mitral tricuspid and aortic regurgitation. There was a questionable increased gradient with Valsalva, but this was felt to be secondary to possible mitral regurgitation jet rather than LVOT obstruction. The ascending aorta is s table at 4.1 cm. She was noted to have persistent tachycardia in the office today despite recently being started on Coreg. ASSESSMENT AND PLAN 1. Ascending aortic aneurysm: This is stable at 4.1 cm with mild to moderate aortic insufficiency as noted above and preserved LV function. We will continue to optimize blood pressure control and continue to monitor this on a serial basis. 2. Chest pain: This appears to be atypical chest pain, but she does have some regional wall motion abnormalities on the echocardiogram. We discussed options of possible cardiac catheterization versusCTA and patient prefers the less invasive route at this time so we will proceed with a CTA to rule out any significant obstructive coronary artery disease. She does understand that if the CT is abnormal, she will need a cardiac catheterization. 3. Resting tachycardia: Still persistent despite current dose of Coreg so we will switch to Toprol XL 25 mg twice a day and reevaluate when she comes back for follow-up. Problem List Items Addressed This Visit Essential hypertension BMI 32.0-32.9,adult Smoker Shortness of breath Heart valve disease Dilation of aorta (CMS/HCC) Other Visit Diagnoses Angina pectoris, unstable (CMS/HCC) - Primary Recent Cardiovascular Testing: Echo- Stress- Cath- Carotid Ultrasound- Past Medical History Past Medical History: Diagnosis Date Heart valve disease Hypertension Social History Social History Tobacco Use Smoking status: Some Days Packs/day: .5 Types: Cigarettes Smokeless tobacco: Never Substance Use Topics Alcohol use: Yes Comment: rarely Drug use: Never Family History Family History Problem Relation Name Age of Onset Heart murmur Mother Other (RENAL CARSONOMA) Mother COPD Mother Allergies: Allergies Allergen Reactions Nsaids (Non-Steroidal Anti-Inflammatory Drug) Other Other Reaction(s): Unknown Other reaction(s): Other: See Comments Has not taken due to gastric bypass surgery in the past GI bleed Milk GI Upset Had gastric bypass in the past, GI bleed history Venlafaxine Analogues Unknown Other Reaction(s): Unknown, Unknown Codeine Other Intolerance, sleep apnea Outpatient Medications: Current Outpatient Medications Medication Instructions ALPRAZolam (XANAX) 0.5 mg, oral, Every 4 hours amitriptyline (ELAVIL) 100 mg, oral, Nightly cholecalciferol (VITAMIN D-3) 50,000 Units, oral, 2 times weekly eletriptan (RELPAX) 40 mg, oral, As needed oxyCODONE (ROXICODONE) 30 mg, oral, Every 4 hours pregabalin (LYRICA) 200 mg, oral, 3 times daily sertraline (ZOLOFT) 100 mg, oral, Daily Recent Lab Results: CBC: No results found for: WBC , RBC , HGB , HCT , PLT CMP: No results found for: NA , K , CL , CO2 , BUN , CREATININE , AGRATIO , GLUCOSE , GLU , CALCIUM Magnesium: No results found for: MG Lipid Profile: No results found for: CHLPL , TRIG , HDL , LDLCALC , LDLDIRECT TSH: No results found for: TSH BNP: No results found for: BNP PT/INR: No results found for: PROTIME , INR HgBA1c: No results found for: HGBA1C BMP: No results found for: NA , K , CL , CO2 , BUN , CREATININE , GLU CBC: No results found for: WBC , RBC , HGB , HCT , MCV , MCH , MCHC , RDW , PLT , MPV Cardiac Enzymes: No results found for: TROPHS Hepatic Function Panel: No results found for: ALKPHOS , ALT , AST , PROT , BILITOT , BILIDIR REVIEW OF SYSTEMS Review of Systems Constitutional: Negative. Cardiovascular: Negative. Respiratory: Negative. Neurological: Negative. All other systems reviewed and are negative. VITALS Vitals: 07/01/23 1427 BP: (!) 124/98 Pulse: 110 Wt Readings from Last 4 Encounters: 06/13/23 86.2 kg (190 lb) 05/27/23 86.6 kg (190 lb 14.4 oz) PHYSICAL EXAM Constitutional: Appearance: Healthy appearance. Not in distress. Eyes: Conjunctiva/sclera: Conjunctivae normal. Pupils: Pupils are equal, round, and reactive to light. Neck: Vascular: No JVR. JVD normal. Pulmonary: Effort: Pulmonary effort is normal. Breath sounds: Normal breath sounds. No wheezing. No rhonchi. No rales. Chest: Chest wall: Not tender to palpatation. Cardiovascular: PMI at left midclavicular line. Normal rate. Regular rhythm. Normal S1. Normal S2. Murmurs: There is no murmur. No gallop. No click. No rub. Pulses: Intact distal pulses. Edema: Peripheral edema absent. Abdominal: Tenderness: There is no abdominal tenderness. Musculoskeletal: Normal range of motion. General: No tenderness. Cervical back: Normal range of motion. Skin: General: Skin is warm and dry. Neurological: General: No focal deficit present. Mental Status: Alert and oriented to person, place and time. [facility] 1(367) 315-300802-06-2024 Instructions* Patient Instructions* Paulo Bucio LPN - 07/01/2023 2:[address] Angio Stop carvedilol Start Metoprolol XL 25 mg BID 3 month visit [facility] Work [facility]: 1(439) 100-218601-25-2024 Evaluation note* Encounter Date Diagnosis Assessment Notes Treatment Notes Treatment Clinical Notes May, Lumbar degenerative disc disease (ICD-10 - M51.36) O[facility] reviewed Medications refilled Refer to Dr. Gonzalez per patient's request. May, Anxiety disorder, unspecified (ICD-10 - F41.9) Medications refilled. [employer] Other 01-08-2024 Evaluation note* Encounter Date Diagnosis Assessment Notes Treatment Notes Treatment Clinical Notes May, Lumbar degenerative disc disease (ICD-10 - M51.36) May, Anxiety disorder, unspecified (ICD-10 - F41.9) [employer] Other 01-02-2024 History of Present illness Narrative* Quan Hunter MD - 05/27/2023 1:45 PM EST CARDIOLOGY OFFICE VISIT CHIEF COMPLAINT Chief Complaint Patient presents with New Patient Visit HISTORY OF PRESENT ILLNESS Candy Booth is a 52 y.o. year old female patient who was referred for further evaluation fora history of mitral valve prolapse as well as an ascending aortic aneurysm. According to the patient, she has been diagnosed with mitral valve prolapse/since she was in her mid 20s and was recently diagnosed with dilated ascending aorta that initially measured 3.9 cm but subsequently was 4.1 cm on the repeat testing. She denied any chest pain with her day-to-day activities. She has noticed some increased shortness of breath but denied orthopnea proximal nocturnal dyspnea. She said she had recent evaluation which is not available at this time and was told that the aortic valve as well as the pulmonic valve were also regurgitant. She does have extreme anxiety for which she is on multiple medications. She does not smoke and she is not exposed to secondhand smoking. She denied any prior history of coronary artery disease. EKG today shows sinus tachycardia at a rate of 109 bpm, there are no acute ST or T wave changes. ASSESSMENT AND PLAN History of ascending aortic aneurysm: We will get further evaluation with a CT angiogram to better define her ascending aortic aneurysm as well as the extent. In the meantime, we will continue with current dose of beta-blockers which she had apparently has not been taking for some time now. 2. Valvular heart disease: With a reported history of mitral valve prolapse and aortic/pulmonic regurgitation which has not been confirmed on review of her chart. Will get an echocardiogram for reevaluation and make further recommendations based on the results. 3. Resting tachycardia: Likely secondary to underlying anxiety and withdrawal from her usual beta-blockers. Will resume carvedilol 3.125 mg twice a day and follow-up based on the results of the test that are pending at this time. Recent Cardiovascular Testing: Echo- Stress- Cath- Carotid Ultrasound- Past Medical History No past medical history on file. Social History Social History Tobacco Use Smoking status: Some Days Packs/day: .5 Types: Cigarettes Smokeless tobacco: Never Substance Use Topics Alcohol use: Not on file Comment: rarely Drug use: Never Family History Family History Problem Relation Name Age of Onset Heart murmur Mother Other (RENAL CARSONOMA) Mother COPD Mother Allergies: Allergies Allergen Reactions Nsaids (Non-Steroidal Anti-Inflammatory Drug) Other Other Reaction(s): Unknown Other reaction(s): Other: See Comments Has not taken due to gastric bypass surgery in the past GI bleed Milk GI Upset Had gastric bypass in the past, GI bleed history Venlafaxine Analogues Unknown Other Reaction(s): Unknown, Unknown Codeine Other Intolerance, sleep apnea Outpatient Medications: Current Outpatient Medications Medication Instructions ALPRAZolam (XANAX) 0.5 mg, oral, Daily amitriptyline (ELAVIL) 100 mg, oral, Nightly carvedilol (COREG) 3.125 mg, oral, 2 times daily cholecalciferol (VITAMIN D-3) 50,000 Units, oral, 2 times weekly eletriptan (RELPAX) 40 mg, oral, As needed oxyCODONE (ROXICODONE) 30 mg, oral, Daily pregabalin (LYRICA) 200 mg, oral, 3 times daily sertraline (ZOLOFT) 100 mg, oral, Daily Recent Lab Results: CBC: No results found for: WBC , RBC , HGB , HCT , PLT CMP: No results found for: NA , K , CL , CO2 , BUN , CREATININE , AGRATIO , GLUCOSE , GLU , CALCIUM Magnesium: No results found for: MG Lipid Profile: No results found for: CHLPL , TRIG , HDL , LDLCALC , LDLDIRECT TSH: No results found for: TSH BNP: No results found for: BNP PT/INR: No results found for: PROTIME , INR HgBA1c: No results found for: HGBA1C BMP: No results found for: NA , K , CL , CO2 , BUN , CREATININE , GLU CBC: No results found for: WBC , RBC , HGB , HCT , MCV , MCH , MCHC , RDW , PLT , MPV Cardiac Enzymes: No results found for: TROPHS Hepatic Function Panel: No results found for: ALKPHOS , ALT , AST , PROT , BILITOT , BILIDIR REVIEW OF SYSTEMS Review of Systems Constitutional: Negative. Cardiovascular: Negative. Respiratory: Negative. Neurological: Negative. All other systems reviewed and are negative. VITALS Vitals: 05/27/23 1404 BP: 122/82 Pulse: (!) 112 Wt Readings from Last 4 Encounters: 05/27/23 86.6 kg (190 lb 14.4 oz) PHYSICAL EXAM Constitutional: Appearance: Healthy appearance. Not in distress. Eyes: Conjunctiva/sclera: Conjunctivae normal. Pupils: Pupils are equal, round, and reactive to light. Neck: Vascular: No JVR. JVD normal. Pulmonary: Effort: Pulmonary effort is normal. Breath sounds: Normal breath sounds. No wheezing. No rhonchi. No rales. Chest: Chest wall: Not tender to palpatation. Cardiovascular: PMI at left midclavicular line. Normal rate. Regular rhythm. Normal S1. Normal S2. Murmurs: There is no murmur. No gallop. No click. No rub. Comments: regular 1st and 2nd heart sounds,tachycardic Pulses: Intact distal pulses. Edema: Peripheral edema absent. Abdominal: Tenderness: There is no abdominal tenderness. Musculoskeletal: Normal range of motion. General: No tenderness. Cervical back: Normal range of motion. Skin: General: Skin is warm and dry. Neurological: General: No focal deficit present. Mental Status: Alert and oriented to person, place and time. [facility] Work Phone: 1(905) 855-925201-02-2024 Instructions* Patient Instructions* Paulo Bucio LPN - 05/27/2023 1:45 PM EST Follow up after testing CT Thoracic Echo [facility] Work Phone: 1(193) 942-525212-07-2023 Evaluation note* Encounter Date Diagnosis Assessment Notes Treatment Notes Treatment Clinical Notes Apr, Lumbar degenerative disc disease (ICD-10 - M51.36) [employer] Other 11-09-2023 Evaluation note* Encounter Date Diagnosis Assessment Notes Treatment Notes Treatment Clinical Notes Mar, Left leg swelling (ICD-10 - M79.89) Advised patient due to her symptoms and her chronic medical issues she go to ER. She was hesitant to do though and agrees to do outpatient test. Patient set up later this day for ultrasound and CAT scan to rule out DVT and PE. Mar, Acute dyspnea (ICD-10 - R06.00) as above Patient understands if her symptoms worsen to go to ER by calling 911. [employer] Other 11-07-2023 Evaluation note* Encounter Date Diagnosis Assessment Notes Treatment Notes Treatment Clinical Notes 07 Nov, 2023 Lumbar degenerative disc disease (ICD-10 - M51.36) [employer] Other 10-19-2023 Evaluation note* Encounter Date Diagnosis Assessment Notes Treatment Notes Treatment Clinical Notes Feb, Anxiety disorder, unspecified (ICD-10 - F41.9) Chronic problem list refill Xanax. Patient states Xanax does completely resolve her symptoms reviewed OARRS report. Feb, Lumbar degenerative disc disease (ICD-10 - M51.36) We will request records from pain management at [place] as far as the MRI and upcoming treatment plan. Reviewed OARRS report. Discussed decreasing amount or frequency of oxycodone. Patient defers to have an upcoming MRI and plan of treatment through pain management. We will monitor further symptoms of overdosing carefully. Feb, Vitamin D deficiency (ICD-10 - E55.9) Lab order sent to [facility] per patient's request Feb, Iron deficiency anemia, unspecified iron deficiency anemia type (ICD-10 - D50.9) As above lab order sent to [facility]. Previously under the care of of Dr. Bañuelos at [facility] cancer Feb, Medication management (ICD-10 - Z79.899) Monitor kidney and liver function based on her chronic medications. [employer] Other 09-21-2023 Evaluation note* Encounter Date Diagnosis Assessment Notes Treatment Notes Treatment Clinical Notes Jan, Anxiety disorder, unspecified (ICD-10 - F41.9) [employer] Other 09-07-2023 Evaluation note* Encounter Date Diagnosis Assessment Notes Treatment Notes Treatment Clinical Notes Jan, Lumbar degenerative disc disease (ICD-10 - M51.36) [employer] Other 08-24-2023 Evaluation note* Encounter Date Diagnosis Assessment Notes Treatment Notes Treatment Clinical Notes Dec, Anxiety disorder, unspecified (ICD-10 - F41.9) [employer] Other 08-08-2023 Evaluation note* Encounter Date Diagnosis Assessment Notes Treatment Notes Treatment Clinical Notes Dec, Lumbar degenerative disc disease (ICD-10 - M51.36) [employer] Other 07-14-2023 Evaluation note* Encounter Date Diagnosis Assessment Notes Treatment Notes Treatment Clinical Notes Nov, Lumbar degenerative disc disease (ICD-10 - M51.36) [employer] Other 06-14-2023 Evaluation note* Encounter Date Diagnosis Assessment Notes Treatment Notes Treatment Clinical Notes Oct, Lumbar degenerative disc disease (ICD-10 - M51.36) [employer] Other 04-27-2023 Evaluation note* Encounter Date Diagnosis Assessment Notes Treatment Notes Treatment Clinical Notes Aug, Left foot pain (ICD-10 - M79.672) Aug, Migraine without status migrainosus, not intractable, unspecified migraine type (ICD-10 - G43.909) Aug, Anxiety disorder, unspecified (ICD-10 - F41.9) Aug, Depression, unspecified (ICD-10 - F32.A) [employer] Other 04-18-2023 Evaluation note* Encounter Date Diagnosis Assessment Notes Treatment Notes Treatment Clinical Notes Aug, Lumbar degenerative disc disease (ICD-10 - M51.36) [employer] Other 03-07-2023 Evaluation note* Encounter Date Diagnosis Assessment Notes Treatment Notes Treatment Clinical Notes Jul, Low back pain, unspecified (ICD-10 - M54.50) Reviewed OARRS. Candy understands that she is on a lot of medication. She agrees to pain management referral later this month. She also notes that we did not correctly send in her rx. Will change rx and resubmit around 08/12. She agrees to pain mgmt referral around that time. Jul, Pain in left leg (ICD-10 - M79.605) [employer] Other 03-07-2023 Evaluation note* Encounter Date Diagnosis Assessment Notes Treatment Notes Treatment Clinical Notes Jul, Low back pain, unspecified (ICD-10 - M54.50) Reviewed OARRS. Candy understands that she is on a lot of medication. She agrees to pain management referral later this month. She also notes that we did not correctly send in her rx. Will change rx and resubmit around 08/12. She agrees to pain mgmt referral around that time. Jul, Pain in left leg (ICD-10 - M79.605) chronic problem related to back and L foot surgery. will refer to pain management as stated above. Jul, Skin tear of left elbow without complication, initial encounter (ICD-10 - S51.012A) recommend bandaid and further cushioning on L elbow. [employer] Other 07-19-2022 NoteChief Complaint consultation for cholelithiasis HPI Staff 51 year old female presents on consultation form Dr. Mitchell for cholelithiasis. Presented to [place] ED 11/03 for abdominal cramping, nausea and vomiting. CT abdomen/pelvis with cholelithiasis and distended gallbladder. History of Present Illness 51 yo female with h/o cervical disc disease, anxiety/depression; GERD, migraine headaches, referredfor abdominal pain and possible cholelithiasis; abdominal operations significant for maame en Y gastric bypass, appendectomy, exploratory laparotomy, and TERRELL with bso; patient had marginal ulcers x 2,08/2017 with recurrent GI bleeding requiring transfusion and transfer to [place]; she was seen in ED at [facility] for acute onset of nausea/vomiting and crampy mid abdominal pain, similar to the symptoms shehad with a bowel obstruction; symptoms resolved after medications in ED; CT scan with cholelithiasis, no inflammation or GB wall thickening; no bowel obstruction; no further problems; denies fatty food intolerance; no RUQ pain; no h/o jaundice or pancreatitis. no asa or NSAID use. no fmhx of GI malignancy or IBD. Review of Systems PHQ Score Initial Depression Screen Score: 0 ROS - Provider Constitutional: no fever, no sweats, no weight loss. Eyes: no glasses, no blurred vision, no visual loss. ENMT: no dentures, no hoarseness, no swallowing difficulties, no hearing loss, no ear infection(s),no nose bleeds. Cardiovascular: normal blood pressure, no chest pain, regular heartbeat, no heart murmur. Respiratory: no shortness of breath, no cough, no asthma, no wheezing. Gastrointestinal: yes nausea, yes vomiting, no diarrhea, no constipation, no blood in stool, no change in bowel habits, mild abdominal pain, no hepatitis. Genitourinary: no kidney stones, no urine infection, no dysuria. Musculoskeletal: no pain, no weakness. Skin: no changing moles, no rash, no skin lumps. Neurologic: no seizures, no epilepsy, no headache. Psychiatric: no emotional or psychiatric problem. Heme/Lymph: no bleeding problems, no anemia, no blood clots, no transfusions. Allergy/Immunologic: no swollen lymph nodes/glands, no IV drug abuse. Other: Additional ROS info: Except as noted in the above Review of Systems and in the History of Present Illness, all other systems have been reviewed and are negative or noncontributory. Physical Exam Vitals & Measurements HR: 72(Peripheral) RR: 16 BP: 126/86 HT: 167.6 cm HT: 167.64 cm WT: 98.0 kg WT: 98 kg BMI: 34.87 HEENT: normal conjunctiva, sclera clear, no scleral icterus, EOM intact, PERRLA. oral mucosa moist without lesions Neck: trachea midline , no mass, symmetric, no thyromegaly or nodules. no adenopathy Respiratory: lungs CTA, respirations non labored. Cardiovascular: regular rate and rhythm, no murmur, , no pedal edema or varicosities. Gastrointestinal: obese, soft, non distended, no tenderness, no masses, no palpable hernias, diastasis recti no, no hepatosplenomegaly. normal bs Lymphatic: no cervical adenopathy, Musculoskeletal: normalgait, digits and nails without infection, nodes, cyanosis, clubbing. Skin: no rashes, no lesions, no ulcers, no subcutaneous nodules, induration. Psychiatric/Neuro: oriented to time, place, person, judgement normal, affect appropriate for age, insight intact, no focal deficits. Tests: labs reviewed, x-rays reviewed, review of old records completed, Assessment/Plan 1. Abdominal pain, epigastric (R10.13: Epigastric pain) one episode, then resolved; question gastroenteritis/GERD/gastritis; will check GB US to further evaluate gallbladder since this was raised by ED, and stones seen on abd ct scan; symptoms not typicalof biliary colic; will call patient with results; recommend low fat diet; call with problems/questions. 2. Periumbilical abdominal pain (R10.33: Periumbilical pain) see # [address] scan (R93.5: Abnormal findings on diagnostic imaging of other abdominal regions, including retroperitoneum) see #1 4. BMI 34.0-34.9,adult (Z68.34: Body mass index [BMI] 34.0-34.9, adult) recommend diet and exercise. Follow-up No qualifying data available Problem List/Past Medical History Ongoing Abdominal pain, epigastric Abnormal abdominal CT scan ADHD Anxiety Aortic anomaly BMI 34.0-34.9,adult Cervical disc disease Cholelithiases Depression GERD (gastroesophageal reflux disease) Hearing loss, bilateral History of GI bleed History of peptic ulcer Insomnia Iron deficiency anemia Migraine Mitral regurgitation Osteoporosis Patent foramen ovale Peripheral neuropathy Periumbilical abdominal pain Pernicious anemia Tobacco abuse Vitamin D deficiency Historical No qualifying data Procedure/Surgical History Colonoscopy (2018), EGD - Esophagogastroduodenoscopy (2018), Appendectomy, Circumferential body lift, Exploratory laparotomy, Lumbar discectomy, Maame-en-y gastric bypass, TERRELL BSO - Total abdominal hysterect (more content not included)...[facility]edoComment on above:Result Comment: Electronically Signed By: CARLOS BURKETT, Ibrahima Mueller\Date and Time Signed: 12/11/21 08:23 [id number] NoteHNO ID: [id number] Author: Hai Matute APRN.CAGE CLERK Service: ? Author Type: Nurse Practitioner Type: Progress Notes Filed: 11/08/2020 3:37 PM Note Text: NAME: Emmy Candy CLINIC NO.: [id number] DATE OF SERVICE: November 08, 2020 Referring Provider: Dr. Maureen Mitchell (Elements copied from note dated 10/11/2020 have been reviewed and updated where appropriate, and all reflect current assessment and medical decision making during today's encounter, November 08, 2020) Additional Clinicians involved in Candy Booth's care: CC: Consultation for iron deficiency anemia. ASSESSMENT: 50-year-old woman with prior history of gastric bypass and GI bleed with no identified source presents for follow up of anemia and was noted to have microcytic findings and B12 deficiency in addition to iron deficiency. She received vitamin B12 12 replacement intramuscularly on 10/11/2020. Her iron studies from 10/11/2020 showed a ferritin level of 23.6, iron level of 22 and transferrin saturation of 6. PLAN: 1. B12 shot today and every 4 weeks 2. Will give Monoferric 1000 mg IV today. 3. We will plan to see her back in 4 weeks for follow up, labs and monthly B12. TREATMENT TO DATE: 2. IV Monoferric- current: Started 11/08/2020. 1. Monthly B12- current: Started 10/11/2020. HPI: Updated Visit, November 08, 2020: Candy Booth returns for follow-up. She states that after her B12 injection she had multiple side effects including diarrhea, body aches, chills, dizziness upon standing and headaches. Aftef a couple of days the side effects resolved. On a good note she states that the B12 helped her pain medications work better. She denies any signs of blood loss. Initial Visit, October 11, 2020: Candy Booth presents today Hematology and Oncology evaluation. She is a 50 year old female who presents with her Trev in consultation for iron deficiency anemia. She tells me that she had Gastric By-pass in 2007 and subsequently had 2 GI bleeds approximately a month and a half apart in August and September 2017 requiring 5 units of blood for resuscitation. She also had a heart attack at the same time. Given her gastric bypass, she was unable to find source of bleeding via endoscopy and was unable to do her pill endoscopy. 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 She has primary complaints of fatigue but no pica. Outside labs were reviewed. REVIEW OF SYSTEMS Per HPI and otherwise negative by full review of organ systems. ECOG PERFORMANCE STATUS: 0 PHYSICAL EXAMINATION: Vitals: BP 118/79 Pulse 94 Temp (Src) 97.2 (Temporal) Resp 16 Ht 5' 7.008 (1.70m) Wt 203 lb 12.8 oz (92.4kg) SpO2 97% BMI 31.91 kg/(m2). Body surface area is 2.09 meters squared. Exam limited to gross visualization where appropriate due to COVID-19. Gen.: This is an age-appropriate patient in no acute distress. Head: Appears atraumatic with no visible lesions. Eyes: Pupils equally round and reactive to light, extraocular muscles are intact. Neck: Supple. Mouth: Mucous membranes appeared to be moist. Respiratory: Appears to be respiring comfortably. Neurologic: Nonfocal to gross visualization. Alert and oriented ?3. Psychiatric: No evidence of inappropriate anxiety or depression. Skin: Visible areas of skin without rash, lesions, wounds or petechiae. ALLERGIES: ALLERGIES Allergen Reactions - Acetaminophen-Codei* Intolerance Sleep apnea - Effexor [Venlafaxin* Unknown - Nsaids (Non-Steroid* Other: See Comments Has not taken due to gastric bypass surgery in the past - Sulfamethazine Unknown Ophthalmic agents MEDICATIONS: albuterol HFA (PROVENTIL HFA, VENTOLIN HFA) 90 mcg/actuation inhaler albuterol sulfate HFA 90 mcg/actuation aerosol inhaler amitriptyline (ELAVIL) 50 mg tablet amitriptyline (ELAVIL) 75 mg tablet Take 75 mg by mouth daily at bedtime. carisoprodol (SOMA) 350 mg tablet Take 350 mg by mouth four times daily. amphetamine-dextroamphetamine 15 mg tablet Take 1 tablet by mouth twice daily. pantoprazole DR (PROTONIX) 40 mg tablet Take 40 mg by mouth. sulfacetamide (BLEPH-10) 10 % ophthalmic solution sulfacetamide sodium 10 % eye drops SUMAtriptan (IMITREX) 100 mg tablet sumatriptan 100 mg tablet tobramycin (TOBREX) 0.3 % ophthalmic solution tobramycin 0.3 % eye drops instill 1 (ONE) DROP into the left eye FOUR TIMES DAILY DIRECTED vortioxetine (TRINTELLIX) 10 mg tablet Trintellix 10 mg tablet TAKE 1 TABLET BY MOUTH DAILY baclofen (LIORESAL) 20 mg tablet Take 20 mg by mouth three times daily as needed. cholecalciferol, Vitamin D3, (VITAMIN D3) 1,250 mcg (50,000 unit) cap capsule Take 1 capsule by mouth two times a week. acetaminophen (TYLENOL EXTRA STRENGTH) 500 mg tablet Take 1,000 mg by mouth every 4 hours as needed. dexlansoprazole (DEXILANT ORAL) Take by mouth once daily. ALPRAZolam (XANAX) 0.5 mg tablet Take 0.5 mg by mouth four times daily as needed. sertraline ( (more content not included)...[facility]05-19-2021 NoteHNO ID: [id number] Author: Jay Amaya MD Service: ? Author Type: Physician Type: Progress Notes Filed: 10/21/2020 6:59 PM Note Text: NAME: Candy Booth CLINIC NO.: [id number] DATE OF SERVICE: October 11, 2020 Referring Provider: Maureen Mitchell Consultation requested by Dr. Mitchell for an opinion regarding Ms. Candy Booth, and my final recommendations will be communicated back to the requesting physician by way of shared medical record or letter via US mail. Additional Clinicians involved in Candy Booth's care: CC: Consultation for iron deficiency anemia. ASSESSMENT: 51-year-old woman with prior history of gastric bypass and GI bleed with no identified source presents for work-up of anemia and was noted to have microcytic findings and B12 deficiency in addition to iron deficiency. Currently she is minimally anemic and therefore I would not replace her iron immediately but will give her vitamin B12 replacement intramuscularly as well as planned for her to need iron in the future. Given her inability to absorb iron or B12 will need to provide this parenterally. PLAN: 1. B12 Shot today and every 4 weeks 2. Return in [address] or [place] 3. CBC on return and probable monoferric infusion that day HPI: Initial Visit, October 11, 2020: Candy Booth presents today Hematology and Oncology evaluation. She is a 50 year old female who presents with her Trev in consultation for iron deficiency anemia. She tells me that she had Gastric By-pass in 2007 and subsequently had 2 GI bleeds approximately a month and a half apart in August and September 2017 requiring 5 units of blood for resuscitation. She also had a heart attack at the same time. Given her gastric bypass, she was unable to find source of bleeding via endoscopy and was unable to do her pill endoscopy. 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 She has primary complaints of fatigue but no pica. Outside labs were reviewed. REVIEW OF SYSTEMS Per HPI and otherwise negative by full review of organ systems. ECOG PERFORMANCE STATUS: 0 PHYSICAL EXAMINATION: Vitals: BP 111/60 Pulse 120 Temp (Src) 96.9 (Temporal) Resp 16 Ht 5' 7.008 (1.70m) Wt 203 lb 6.4 oz (92.3kg) SpO2 96% BMI 31.85 kg/(m2). Body surface area is 2.09 meters squared. Exam limited to gross visualization where appropriate due to COVID-19. Gen.: This is an age-appropriate patient in no acute distress. Head: Appears atraumatic with no visible lesions. Eyes: Pupils equally round and reactive to light, extraocular muscles are intact. Neck: Supple. Mouth: Mucous membranes appeared to be moist. Respiratory: Appears to be respiring comfortably. Neurologic: Nonfocal to gross visualization. Alert and oriented ?3. Psychiatric: No evidence of inappropriate anxiety or depression. Skin: Visible areas of skin without rash, lesions, wounds or petechiae. ALLERGIES: ALLERGIES Allergen Reactions - Acetaminophen-Codei* Intolerance Sleep apnea - Effexor [Venlafaxin* Unknown - Nsaids (Non-Steroid* Other: See Comments Has not taken due to gastric bypass surgery in the past - Sulfamethazine Unknown Ophthalmic agents MEDICATIONS: amitriptyline (ELAVIL) 75 mg tablet Take 75 mg by mouth daily at bedtime. carisoprodol (SOMA) 350 mg tablet Take 350 mg by mouth four times daily. amphetamine-dextroamphetamine 15 mg tablet Take 1 tablet by mouth twice daily. cholecalciferol, Vitamin D3, (VITAMIN D3) 1,250 mcg (50,000 unit) cap capsule Take 1 capsule by mouth two times a week. acetaminophen (TYLENOL EXTRA STRENGTH) 500 mg tablet Take 1,000 mg by mouth every 4 hours as needed. dexlansoprazole (DEXILANT ORAL) Take by mouth once daily. ALPRAZolam (XANAX) 0.5 mg tablet Take 0.5 mg by mouth four times daily as needed. sertraline (ZOLOFT) 100 mg tablet Take 200 mg by mouth once daily. oxyCODONE IR (ROXICODONE) 20 mg tab Take 1 tablet by mouth. Pregabalin (LYRICA) 200 mg capsule Take 200 mg by mouth three times daily. eletriptan (RELPAX) 40 mg tablet Take 40 mg by mouth as needed (migraine). may repeat in 2 hours if necessary albuterol HFA (PROVENTIL HFA, VENTOLIN HFA) 90 mcg/actuation inhaler albuterol sulfate HFA 90 mcg/actuation aerosol inhaler amitriptyline (ELAVIL) [address] (PROTONIX) 40 mg tablet Take 40 mg by mouth. sulfacetamide (BLEPH-10) 10 % ophthalmic solution sulfacetamide sodium 10 % eye drops SUMAtriptan (IMITREX) 100 mg tablet sumatriptan 100 mg tablet tobramycin (TOBREX) 0.3 % ophthalmic solution tobramycin 0.3 % eye drops instill 1 (ONE) DROP into the left eye FOUR TIMES DAILY DIRECTED vortioxetine (TRINTELLIX) 10 mg tablet Trintellix 10 mg tablet TAKE 1 TABLET BY MOUTH DAILY baclofen (LIORESAL) 20 mg tablet Take 20 mg by mouth three times daily as needed. carvedilol (COREG) 3.125 mg tablet Take 3.125 mg by mouth. oxyCODONE-acetaminophen (PERCOCET) 5-325 mg tablet Take 1 (more content not included)...[facility] No data available for this section General Surgery Karyn Evaluation noteNo InformationNort [employer] Other Evaluation noteRugby [employer] Other Evaluation note* Diagnosis Shortness of breath Essential hypertension Unspecified essential hypertension BMI 32.0-32.9,adult Smoker Tobacco use disorder Heart valve disease Endocarditis, valve unspecified, unspecified cause Dizziness Dizziness and giddiness Dilation of aorta (CMS/HCC) documented in this encounter [facility] Work Phone: Evaluation note* Diagnosis Shortness of breath Heart valve disease Endocarditis, valve unspecified, unspecified cause Dizziness Dizziness and giddiness Dilation of aorta (CMS/HCC) documented in this encounter [facility] Work Phone: Evaluation note* Diagnosis Angina pectoris, unstable (CMS/HCC)- Primary Intermediate coronary syndrome Dilation of aorta (CMS/HCC) Essential hypertension Unspecified essential hypertension Heart valve disease Endocarditis, valve unspecified, unspecified cause Shortness of breath Smoker Tobacco use disorder BMI 32.0-32.9,adult documented in this encounter [facility] Work Phone: Evaluation note* Diagnosis Essential hypertension Unspecified essential hypertension Shortness of breath Angina pectoris, unstable (CMS/HCC) Intermediate coronary syndrome documented in this encounter [facility] Work Phone: Evaluation note* Diagnosis Essential hypertension Unspecified essential hypertension Shortness of breath Angina pectoris, unstable (CMS/HCC) Intermediate coronary syndrome documented in this encounter [facility] Work Phone: Evaluation note* Diagnosis Onset Date Resolution Status Edema acute HTN (hypertension) acute [facility] Work Phone: Evaluation note* Diagnosis Onset Date Resolution Status Anxiety acute Chronic lumbar pain acute Edema acute HTN (hypertension) acute Lumbar degenerative disc disease acute Peripheral neuropathic pain acute Skin ulcer of elbow acute Anxiety acute Chronic pain syndrome acute Encounter for palliative care acute Peripheral neuropathic pain acute [facility] Work Phone: Evaluation note* Diagnosis Onset Date Resolution Status Anxiety acute Chronic lumbar pain acute Edema acute HTN (hypertension) acute Lumbar degenerative disc disease acute Peripheral neuropathic pain acute Skin ulcer of elbow acute Anxiety acute Chronic pain syndrome acute Encounter for palliative care acute Anxiety acute Chronic pain syndrome acute [facility] Work Phone: Evaluation note* Diagnosis Onset Date Resolution Status Anxiety acute Chronic lumbar pain acute Edema acute HTN (hypertension) acute Lumbar degenerative disc disease acute Peripheral neuropathic pain acute Skin ulcer of elbow acute Anxiety acute Chronic pain syndrome acute Encounter for palliative care acute Anxiety acute Chronic pain syndrome acute Chronic pain syndrome acute Peripheral neuropathic pain acute [facility] Work Phone: Evaluation note* Diagnosis Onset Date Resolution Status Anxiety acute Chronic pain syndrome acute Anxiety acute Chronic pain syndrome acute Depression acute Impaired mobility and ADLs a cute Peripheral neuropathic pain acute Anxiety acute Chronic pain syndrome acute Depression acute Peripheral neuropathic pain acute [facility] Work Phone: Evaluation note* Diagnosis Onset Date Resolution Status Anxiety acute Chronic pain syndrome acute Anxiety acute Chronic pain syndrome acute Depression acute Impaired mobility and ADLs a cute Peripheral neuropathic pain acute Anxiety acute Chronic pain syndrome acute [facility] Work Phone: History general Narrative - Reported* Type Description Date Medical History osteoporosis Medical History peptic ulcer disease Medical History appendectomy Medical History hysterectomy Medical History complex regional pain syndrome Medical History left foot Medical History depression Medical History Anxiety disorder Medical History mitral valve prolapse Medical History Aortic aneurysm Surgical History total Hysterectomy 1996 Surgical History ULCER SURGERY Surgical History CHOLECYSTECTOMY Surgical History Gastric bypass [place] 2007 Surgical History HYSTERECTOMY Surgical History LT foot surgery 04/2015 Surgical History GASTRIC BYPASS Surgical History Total body lift 2013 Surgical History Foot Surgery Surgical History excess skin Surgical History diskectomy Hospitalization History see above [facility] Other History [facility] - [facility] Discharge instructions No data available for this section General Surgery [place] Progress note No data available for this section General Surgery Karyn Reason for visit [facility]ativeref[facility] for pain management [facility] Other Summary Purpose Family History Relationship Condition Age at Onset Recorded Date/T suzie father Hypertension Unknown Heart disease Unknown Malignant neoplasm Unknown Diabetes mellitus Unknown Unknown Not Specified Diabetes mellitus Unknown Hypertension Unknown Relationship Condition Age at Onset Recorded Date/T suzie father Hypertension Unknown Heart disease Unknown Malignant neoplasm Unknown Diabetes mellitus Unknown Unknown mother Diabetes mellitus Unknown Hypertension Unknown Advance Directives Advance Directive Response Recorded Date/ Time Advance Directives No March 18, 2018 2:11pm Advance Directive Response Recorded Date/ Time Advance Directives No September 21 2:41pm Reason for Referral Specialty Diagnoses / Procedures Referred By Norberto abernathy Referred To Contact Radiology Diagnoses Essential hypertension Shortness of breath Angina pectoris, unstable (CMS/HCC) Procedures CT angio coronary art with heartflow if score >30% Quan Hunter MD [address] [facility] [address] [place] [address] Referral ID Status Reason Start Date Expiration Date Visits Requested Visits Authorized [id number] Pending Review Perform Procedure 07/01/2023 06/30/2024 1 1 Reason *FU 07/07 Lumbar D DD and radiculopathy Diagnosis 1 Lumbar degenerative disc disease (M51.36) Referral Organization [facility] Referring Provider First Name Maureen Referring Provider Last Name Mando Referring Provider Specialty Family [facility] Referred Organization [facility] Referred Provider Darlene Gonzalez Referred Address ,[place], [place],[address] Referred Provider Specialty Orthopedic S urgery Referral Priority Routine General Notes Joselyn Zee 12:44:56 PM >received today, notes locked, attachments made, referral faxed Specialty Diagnoses / Procedures Referred By Contac t Referred To Contact Radiology Diagnoses Heart valve disease Dilation of aorta (CMS/HCC) Procedures CT chest wo IV contrast Quan Hunter MD [address] [facility], [address] [address] Referral ID Status Reason Start Date Expiration Date Visits Requested Visits Authorized [id number] Pending Review Perform Procedure 05/27/2023 05/26/2024 1 1 Specialty Diagnoses / Procedures Referred By Contac t Referred To Contact Cardiology Diagnoses Shortness of breath Heart valve disease Dizziness Dilation of aorta (CMS/HCC) Procedures Transthoracic Echo (TTE) Complete [place] ECHO TTHRC R-T 2D W/WOM-MODE COMPL SPEC&COLR D Quan Hunter MD [address] [facility], [address] [address] Referral ID Status Reason Start Date Expiration Date Visits Requested Visits Authorized [id number] Pending Review Perform Procedure 05/27/2023 05/26/2024 1 1 Chief Complaint and Reason for Visit Chief Complaint Amb Documentation Amb Documentation Check Up Reason for Visit Edema HTN (hypertension) Chief Complaint Amb Documentation Amb Documentation Check Up at request of Dr. Mitchell Reason for Visit Anxiety Chronic lumbar pain Edema HTN (hypertension) Lumbar degenerative disc disease Peripheral neuropathic pain Skin ulcer of elbow Anxiety Chronic pain syndrome Encounter for palliative care Peripheral neuropathic pain Chief Complaint Amb Documentation Amb Documentation Check Up at request of Dr. Mitchell Patient here for a 1 week f/u Reason for Visit Anxiety Chronic lumbar pain Edema HTN (hypertension) Lumbar degenerative disc disease Peripheral neuropathic pain Skin ulcer of elbow Anxiety Chronic pain syndrome Encounter for palliative care Anxiety Chronic pain syndrome Chief Complaint Amb Documentation Amb Documentation Check Up at request of Dr. Mitchell Patient here for a 1 week f/u Patient here for a f/u in office Reason for Visit Anxiety Chronic lumbar pain Edema HTN (hypertension) Lumbar degenerative disc disease Peripheral neuropathic pain Skin ulcer of elbow Anxiety Chronic pain syndrome Encounter for palliative care Anxiety Chronic pain syndrome Chronic pain syndrome Peripheral neuropathic pain Chief Complaint Patient here for a 1 week f/u Patient here for a f/u in office Patient here for a 2 month f/u in office Reason for Visit Anxiety Chronic pain syndrome Anxiety Chronic pain syndrome Depression Impaired mobility and ADLs Peripheral neuropathic pain Anxiety Chronic pain syndrome Depression Peripheral neuropathic pain Chief Complaint Patient here for a 1 week f/u Patient here for a f/u in office Patient here for a 2 month f/u in office painful bump behind ear Reason for Visit Anxiety Chronic pain syndrome Anxiety Chronic pain syndrome Depression Impaired mobility and ADLs Peripheral neuropathic pain Anxiety Chronic pain syndrome Additional Source Comments INFORMATION SOURCE (unrecogn ized section and content) DATE CREATED AUTHOR 11/18/2017 [facility] DATE CREATED AUTHOR AUTHOR'S ORGANIZ ATION 03/09/2018 [facility] DATE CREATED AUTHOR AUTHOR'S ORGANIZ ATION 08/07/2021 [facility] DATE CREATED AUTHOR AUTHOR'S ORGANIZ ATION 08/17/2021 [facility] DATE CREATED AUTHOR AUTHOR'S ORGANIZ ATION 01/18/2022 [facility] DATE CREATED AUTHOR AUTHOR'S ORGANIZ ATION 04/05/2022 [facility] DATE CREATED AUTHOR AUTHOR'S ORGANIZ ATION 07/02/2022 Remy José Miguel [facility] ical Center DATE CREATED AUTHOR AUTHOR'S ORGANIZ ATION 07/06/2023 [facility] DATE CREATED AUTHOR AUTHOR'S ORGANIZ ATION 11/16/[address] [facility] EPIC DATE CREATED AUTHOR AUTHOR'S ORGANIZ ATION 12/11/2023 [facility] Care Team (unrecognized sect ion and content) Team Status: Active Member Role Status Dates Maureen Mitchell MD Primary Care Provider Active Team Status: Inactive Member Role Status Dates Maureen Mitchell MD Primary Care Provider Active Start: September 22, 2023 End: September 22, 2023 Thi Vidal APRN Attending Provider Active Start: September 22, 2023 End: September 22, 2023 Team Status: Inactive Member Role Status Dates Maureen Mitchell MD Primary Care Provider Active Start: October 14, 2023 End: October 14, 2023 Thi iVdal APRN Attending Provider Active Start: October 14, 2023 End: October 14, 2023 Team Status: Active Member Role Status Dates Maureen Mitchell MD Primary Care Provider Active Start: November 10, 2023 Chong Gutierrez Attending Provider Active Start: November 10, 2023 Team Status: Inactive Member Role Status Dates Maureen Mitchell MD Primary Care Provider Active Start: December 11, 2023 End: December 11, 2023 Thi Vidal APRN Attending Provider Active Start: December 11, 2023 End: December 11, 2023 [employer] Associate Relationship Specialty Start Date End Date Maureen Mitchell MD [address] [place] [address] PCP - General Family Medicine 05/27/23 [employer] Associate Relationship Specialty Start Date End Date Maureen Mitchell MD [address] [place] [address] PCP - General Family Medicine 05/27/23 [employer] Associate Relationship Specialty Start Date End Date Maureen Mitchell MD [address] [place] [place] [address] PCP - General Family Medicine 05/27/23 Quan Hunter MD [address] [facility] [place] [address] Community [employer] Therapist Cardiology 06/17/23 [employer] Associate Relationship Specialty Start Date End Date Maureen Mitchell MD [address] [place] [address] PCP - General Family Medicine 05/27/23 Quan Hunter MD [address] [facility] [address], [address] [place] [address] Community [employer] Therapist Cardiology 06/17/23 [employer] Associate Relationship Specialty Start Date End Date Maureen Mitchell MD [address] [place] [place] [address] PCP - General Family Medicine 05/27/23 Quan Hunter MD [address] [facility] [place] [address] Community [employer] Therapist Cardiology 06/17/23 Team Status: Active Member Role Status Dates Maureen Mitchell MD Primary Care Provider Active Start: July 23, 2023 ELMER Sanchez Attending Provider Active Start : July 23, 2023 Team Status: Inactive Member Role Status Dates Maureen Mitchell MD Primary Care Provide r, Attending Provider Active Start: August 26, 2023 End: August 26, 2023 Team Status: Active Member Role Status Dates Maureen Mitchell MD Primary Care Provide r, Attending Provider Active Start: September 03, 2023 Team Status: Inactive Member Role Status Dates Maureen Mitchell MD Primary Care Provider Active Start: September 12, 2023 End: September 12, 2023 Thi Vidal APRN Attending Provider Active Start: September 12, 2023 End: September 12, 2023 Team Status: Inactive Member Role Status Dates Maureen Mitchell MD Primary Care Provide r, Attending Provider Active Start: December 18, 2023 End: December 18, 2023 REASON FOR VISIT (unrecogniz ed section and content) Reason Comments New Patient Visit Specialty Diagnoses / Procedures Referred By Contac t Referred To Contact Cardiology Diagnoses Shortness of breath Heart valve disease Dizziness Dilation of aorta (CMS/HCC) Procedures Transthoracic Echo (TTE) Complete [place] ECHO TTHRC R-T 2D W/WOM-MODE COMPL SPEC&COLR D Quan Hunter MD [facility] [address] [facility] Office [address] [address] Referral ID Status Reason Start Date Expiration Date Visits Requested Visits Authorized [id number] Authorized Perform Procedure 05/27/2023 05/26/2024 1 1 Reason Comments Patient here for follow up Echo Specialty Diagnoses / Procedures Referred By Contac t Referred To Contact Radiology Diagnoses Essential hypertension Shortness of breath Angina pectoris, unstable (CMS/HCC) Procedures CT angio coronary art with heartflow if score >30% Quan Hunter MD [address] [facility] Office [facility], [address] [address] Referral ID Status Reason Start Date Expiration Date Visits Requested Visits Authorized [id number] Authorized Perform Procedure 07/01/2023 06/30/2024 1 1 Goals (unrecognized section and content) Goals may be documented in a n alternate section FOR RECORDS PERTAINING TO PATIENTS WHO ARE OR HAVE BEEN ENROLLED IN A CHEMICAL DEPENDENCY/SUBSTANCEABUSE PROGRAM, SOME INFORMATION MAY BE OMITTED. This clinical summary was aggregated from multiple sources. Caution should be exercised in using it in the provision of clinical care. This summary normalizes information from multiple sources, and as a consequence, information in this document may materially change the coding, format and clinical context of patient data. In addition, data may be omitted in some cases. CLINICAL DECISIONS SHOULD BE BASED ON THE PRIMARY CLINICAL RECORDS. [facility]. provides no warranty or guarantee of the accuracy or completeness of information in this document.
[2023-12-28 10:03] LABS: Alanine Aminotransferase 21 U/L (14-59); Albumin Globulin Ratio 0.6; Albumin Level 2.2 g/dL (3.4-5.0); Alkaline Phosphatase 219 U/L (46-116); Anion Gap 12.7; Aspartate Amino Transferase 45 U/L (15-37); BUN Creatinine Ratio 13.9; Bilirubin Total 0.5 mg/dL (0.2-1.0); Calcium 8.7 mg/dL (8.5-10.1); Carbon Dioxide 26.6 mmol/L (21.0-32.0); Chloride 89 mmol/L (98-107); Estimated GFR (African America >60 (>=60); Estimated GFR (Non-African Ame >60 (>=60); Globulin 3.4 g/dL; Glucose 109 mg/dL (74-106); Potassium 4.3 mmol/L (3.5-5.1); Total Protein 5.6 g/dL (6.4-8.2); Troponin I High Sensitivity <4.0 pg/mL (4.0-51.3)
[2023-12-28 10:07] LABS: Lactate/Lactic Acid 5.2 mmol/L (0.4-2.0); Sodium 124 mmol/L (136-145)
[2023-12-28] MEDS: PIPERACILLIN SODIUM/TAZOBACTAM 3.375 GM in 0.9 % SODIUM CHLORIDE 50 ML IV (10:23)
[2023-12-28] MEDS: VANCOMYCIN HCL 1,000 MG in 0.9 % SODIUM CHLORIDE 250 ML 250 MG IV (10:51)
[2023-12-28 11:42] LABS: Internal Control Within Normal Limits; Occult Blood Positive
--- NOTE | 2023-12-28 11:43 | P.HP_ITS ---
HPI H&P: HPI History of Present Illness Chief complaint: SEPSIS, GI BLEED, HYPONATREMIA, ELEVATED LACTATE Narrative: 53-year-old female, appears older than stated age presents with generalized weakness, nausea, poor oral intake and seeing dark blood in his stool since yesterday. Patient reports that she woke up early in the morning and fell in the restroom because of unsteady gait. She did not pass out at that time but when she used the restroom, she noticed large amount of dark red blood. She has had another episode of dark red blood before coming to ER. She reports feeling lightheaded, dizzy and weak overall. Patient has limited functional capacity and is in poor physical health. She walks for short distances using a walker but is generally bedridden because of chronic neuropathy and back pain. While registering for ER, patient had a syncopal episode in her wheelchair. Lost consciousness for a brief second regained consciousness. Patient denies chest pain, shortness of breath, palpitations. She does report feeling cold and clammy after she passed out. Patient has a prior history of GI bleed and required EGD and colonoscopy over 5 years ago. Patient usually has chronic diarrhea and has noticed that she is having increased bowel movements. She is also chronically nauseous and has noted that her nausea has gotten worse. While in ER, she was found to have mild anemia with hemoglobin of 11, lactic acidosis and hyponatremia. Patient was given IV normal saline in ER. CT abdomen pelvis showed possible gallbladder wall thickening along with distended gallbladder but otherwise no significant intra-abdominal pathology. Patient denies dysuria, hematuria. She was started on broad-spectrum antibiotics by ER-IV vancomycin and Zosyn. Patient will need inpatient treatment for syncope, hypovolemia, GI bleed was admitted for further management of her acute illness Opioid HPI Opioid Management Most Recent Pain and Opioid Data: Last ED Pain Assessment 12/28/23 09:04 Review of Systems ROS Status of ROS 10 or more systems reviewed and unremark able except as noted in history and below [facility] Medical History (Updated 12/28/23 @ 11:56 by Shaikh Ana Paula MD) Peripheral neuropathy ?G62.9 - Polyneuropathy, unspecified (ICD-10) Chronic bilateral back pain ?M54.9 - Dorsalgia, unspecified (ICD-10) ?G89.29 - Other chronic pain (ICD-10) Afib ?I48.91 - Unspecified atrial fibrillation (ICD-10) Aortic aneurysm ?I71.9 - Aortic aneurysm of unspecified site, without rupture (ICD-10) GI bleed ?K92.2 - Gastrointestinal hemorrhage, unspecified (ICD-10) Surgical History (Updated 11/10/23 @ 09:59 by Gabrielle Donaldson RN) Status post abdominoplasty ?Z98.890 - Other specified postprocedural states (ICD-10) Status post abdominoplasty ?Z98.890 - Other specified postprocedural states (ICD-10) H/O hysterectomy with oophorectomy H/O: hysterectomy ?Z90.710 - Acquired absence of both cervix and uterus (ICD-10) Gastric bypass status for obesity ?Z98.84 - Bariatric surgery status (ICD-10) Family History (Updated 12/28/23 @ 11:58 by Armida Serra) Mother Family history of cancer Family history of hypertension Meds Home Medications and Allergies Home Medications ?Medication ?Instructions ?Recorded ?Confirmed ?Type pregabalin 200 mg capsule 200 mg PO TID 09/03/23 12/28/23 History sertraline 100 mg tablet 200 mg PO DAILY 09/03/23 12/28/23 History amitriptyline 75 mg tablet 75 mg PO .qhs 12/28/23 12/28/23 History Allergies Allergy/AdvReac Type Severity Reaction Status Date / Time NSAIDS (Non-Steroidal Allergy Intermediate Verified 11/10/23 09:36 Anti-Inflamma Exam Constitutional Vital Signs, click to edit/add: Last Vital Signs Temp 98.2 F 12/28/23 09:00 Pulse 96 H 12/28/23 10:50 Resp 18 12/28/23 10:59 BP 106/75 12/28/23 10:50 Pulse Ox 97 12/28/23 10:50 O2 Del Method Room Air 12/28/23 09:04 Documenting provider has reviewed patient's vital signs: yes Common normals: no apparent distress and oriented x3 General appearance: cooperative and comfortable HENRI Common normals: normocephalic and head/scalp atraumatic Head and scalp: normocephalic and atraumatic Eye Common normals: conjunctivae normal and no scleral icterus Conjunctiva: conjunctiva(e) normal Respiratory Common normals: normal respiratory effort and clear to auscultation bilaterally Effort & inspection: able to speak in complete sentences Auscultation: clear to auscultation bilaterally Cardio Common normals: regular rate, S1 normal heart sound and S2 normal heart sound Rate: regular rate Heart sounds: S1 normal and S2 normal GI Common normals: Normal to inspection, nondistended, normoactive bowel sounds present, soft to palpation, non-tender and no hepatosplenomegaly Palpation: soft and no hepatosplenomegaly Extremity Common normals: no clubbing, cyanosis or edema Neuro Common normals: oriented x3, moves all extremities and no focal motor deficits Psych Common normals: mental status grossly normal, denies hallucinations, denies homicidal ideation and denies suicidal ideation Results Labs Labs: Short CBC 12/28/23 Range/Units 08:50 WBC 10.1 (4.0-11.0) 10^3/uL Hgb 11.0 L (12.0-16.0) g/dL Hct 32.0 L (36.0-48.0) % Plt Count 315 (150-450) 10^3/uL BMP 12/28/23 08:50 Sodium 124 L* Potassium 4.3 Chloride 89 L Carbon Dioxide 26.6 BUN 11.0 Creatinine 0.79 Glucose 109 H Calcium 8.7 Liver Function 12/28/23 Range/Units 08:50 Total Bilirubin 0.5 (0.2-1.0) mg/dL AST 45 H (15-37) U/L ALT 21 (14-59) U/L Alkaline Phosphatase 219 H (46-116) U/L Albumin 2.2 L (3.4-5.0) g/dL Assessment and Plan Assessment and Plan (1) Syncope: Assessment and Plan: Likely from hypovolemia and dehydration. Continue with IV hydration. Continue with monitoring on telemetry. Needs close hemodynamic monitoring. Qualifiers: Syncope type: unspecified Qualified Code(s): R55 - Syncope and collapse (2) Hyponatremia: Assessment and Plan: Likely due to dehydration and hypovolemic hyponatremia. Continue with IV fluids. Monitor serum sodium closely. Ordered urine sodium, urine creatinine, urine osmolality. (3) Dehydration: Assessment and Plan: On IV hydration. Continue with IV fluids. (4) Bright red blood per rectum: Assessment and Plan: 2 episodes of large quantity of bright red blood according to the patient. Hemoglobin is 11 but this could be falsely elevated because of dehydration. Monitor hemoglobin. Started on IV Protonix 40 twice daily. (5) Thickening of wall of gallbladder: Assessment and Plan: Gallbladder thickening on CT abdomen pelvis with distended gallbladder. Will empirically treat for acute cholecystitis. Started on IV Rocephin and Flagyl. Right upper quadrant ultrasound ordered (6) Lactic acid acidosis: Assessment and Plan: Due to dehydration. Improved with IV hydration. (7) Afib: Assessment and Plan: In normal sinus rhythm. Not on stroke prophylaxis because of history of GI Qualifiers: Atrial fibrillation type: paroxysmal Qualified Code(s): I48.0 - Paroxysmal atrial fibrillation (8) Peripheral neuropathy: Assessment and Plan: Continue with Lyrica Qualifiers: Peripheral neuropathy type: polyneuropathy, unspecified Qualified Code(s): G62.9 - Polyneuropathy, unspecified (9) Chronic bilateral back pain: Assessment and Plan: Continue with home narcotics. Monitor. Qualifiers: Back pain location: low back pain Sciatica presence: with sciatica Sciatica laterality: bilateral sciatica Qualified Code(s): M54.42 - Lumbago with sciatica, left side; M54.41 - Lumbago with sciatica, right side; G89.29 - Other chronic pain
[2023-12-28 11:48] LABS: Lactate/Lactic Acid 2.1 mmol/L (0.4-2.0)
--- NOTE | 2023-12-28 11:49 | CT_ITS ---
The [address] [address] Patient Name: RASHID BOOTH MRN: [id number] date: 1970 Sex: F Assigned Patient Location: [place] Current Patient Location: [place] Accession/Order Number: [id number] Exam Date: 12/28/2023 12:45 Report Date: 12/28/2023 13:32 At the request of: SHAIKH BRANDY Procedure: CT head/brain wo con CT head/brain wo con, 12/28/2023 12:45 PM EDT INDICATION: SYNCOPE COMPARISON: There is no appropriate prior study for comparison. TECHNIQUE: Axial CT images of the brain from skull base to vertex, including portions of the face and sinuses, were obtained without contrast . Multiplanar reformatted images were generated and reviewed as needed. Dose reduction techniques were achieved by using automated exposure control and/or adjustment of mA and/or kV according to patient size and/or use of iterative reconstruction technique. FINDINGS: The cerebral sulci as well as ventricular system are appropriate for age. There is no intracranial mass, mass effect, midline shift, intra or extra-axial fluid collection or hemorrhage. The visualized portions of orbits, mastoid air cells as well as paranasal sinuses are unremarkable. There is no suspicious osteolytic or osteoblastic lesion. CT/CT head/brain wo con IMPRESSION: No acute intracranial process is noted. Electronically authenticated by: MARSHAL GEE Date: 12/28/2023 13:32
--- OUTSIDE RECORDS SUMMARY | 2023-12-28 11:49 | XMS_ITS | CCD ---
Author Organization [facility] Care Team Providers Care Batch Heat Treat Operator Name Role Phone MOISE ARGUETA Unavailable Unavailable CHONG GUTIERREZ Unavailable Unavailable MAUREEN MITCHELL Unavailable Unavailable JULISA ELKINS Unavailable Unavailable HOMA JAMESON Unavailable Unavailable AVASTHI, NIA Unavailable Unavailable BLEIBEL, WISSAM Unavailable Unavailable MAUREEN MITCHELL Unavailable Unavailable REJI, PATRICK H. Unavailable Unavailable MITCHELL MAUREEN Unavailable Unavailable REJI, PATRICK H. Unavailable Unavailable REJI, PATRICK H. Unavailable Unavailable REJI, PATRICK H. Unavailable Unavailable MAUREEN MITCHELL Unavailable Unavailable MAUREEN MITCHELL Primary Care Physician MAUREEN MITCHELL Referring Unavailable MAUREEN MITCHELL Primary Care Unavailable NEW PARKINSON Attending Unavailable IGGY, NEW Admitting Unavailable NILL, DR ALEXANDRA Attending Unavailable [...] Unavailable MITCHELL, DR MAUREEN Morales Admitting Unavailable MTICHELL, DR MAUREEN Morales Attending Unavailable MITCHELL, DR MAUREEN Morales Consulting Unavailable MITCHELL, DR MAUREEN Morales Primary Care Unavailable MITCHELL, DR MAUREEN Morales Admitting Unavailable MITCHELL, DR MAUREEN Morales Attending Unavailable MITCHELL, DR MAUREEN Moralse Consulting Unavailable MITCHELL, DR MAUREEN Morales Primary Care Unavailable NILL, Ibrahima Willis Attending Unavailable Maureen Mitchell Unavailable Otoniel Kelly Unavailable Maureen Mitchell MD Primary Care Provider Maureen Mitchell MD Primary Care Provider Qaun Hunter MD Unavailable [phone] QUAN HUNTER Attending Unavailable MAUREEN MITCHELL Primary [...] Acetaminophen (1 source) Acetaminophen Drug Allergy 09-22-19 [facility] Opioid Agonists (1 source) Codeine Drug Allergy 09-22-19 24 [facility] Sulfonamides (antibiotic) (1 source) Sulfonamides (Antibiotic) Drug Allergy 09-22-19 24 [facility] venlafaxine (1 source) venlafaxine Drug Allergy 09-22-19 24 [facility] (20 sources) Non-steroidal anti-inflammator y agent; Translations: [NSAIDs] Drug allergy Unknown (qualifier value) [facility] [place] (2 sources) Sulfonamides (Antibiotic); Translations: [sulfa drugs] Drug allergy Unknown (qualifier value) [facility] [place] (20 sources) venlafaxine; Translations: [venlafaxine] Drug Allergy 07-16-19 19 Unknown (qualifier value), Unknown [facility] [place] (4 sources) NSAIDs; Translations: [NSAIDS (NON-STEROIDAL ANTI-INFLAMMATOR Y DRUG)] Drug allergy (disorder) 09-06-[address] [facility] Repository (1 source) Tylenol-Codeine #3 Drug allergy (disorder) 01-23-[address] [facility] Repository (20 sources) Codeine; Translations: [codeine] Drug Allergy 06-09-[address] [facility] Repository (20 sources) Acetaminophen / Codeine Drug Allergy Unknown [facility] Other (18 sources) Sulfonamides (Antibiotic) Drug allergy Unknown [facility] Other (16 sources) Codeine Drug Allergy Unknown [facility] Other (4 sources) patient allergy list reviewed by nurse or physicia Propensity to adverse reactions 06-09-19 14 Comment:Done [facility] Other (4 sources) Allergies Reconciled Propensity to adverse reactions Unknown [facility] Other (16 sources) Sulf-10 Drug allergy Unknown [employer] Other (8 sources) cow milk allergenic extract; Translations: [MILK] Drug Allergy 12-11-19 23 GI Upset [facility] Work Phone: (6 sources) Non-steroidal anti-inflammator y agent Drug Intolerance 09-06-19 16 Other [facility] Work Phone: (2 sources) VENLAFAXINE ANALOGUES; Translations: [VENLAFAXINE ANALOGUES] Propensity to adverse reactions to drug (disorder) 10-06-19 21 [facility] 3 Repository (5 sources) Acetaminophen Drug Allergy 08-26-19 24 [facility] (5 sources) Sulfonamides (Antibiotic) Allergy to substance 08-26-19 24 [facility] (6 sources) NSAIDS (Non-Steroidal Anti-Inflamma Allergy to substance 08-26-19 24 [facility] Medications Current Medications Medication Drug Class(es) [...] Start: 05-02-2023 take 1 tablet by steve th once daily sertraline (Zoloft) 100 mg tablet Take 1 tablet (100 mg) by mouth once daily. 0 05/02/2023 Active Start: 11-14-2021 take 2 tablets by mo uth once daily Zoloft 100 mg Tab 200 [...] 11-14-2021 take 1 tablet by steve th at bedtime Amitriptyline HCl 100 MG 1 [...] 11:41am Start: 03-10-2023 take 1 capsule by [facility] two times weekly cholecalciferol (Vitamin D-3) 50,000 unit capsule Take 1 capsule (50,000 Units) by mouth 2 times a week. 0 03/10/2023 Active take 1 capsule by [facility] two times weekly Vitamin D3 1.25 MG (33828 UT) TAKE 1 CAPSULE BY MOUTH TWICE [...] Start: 11-14-2021 take 1 capsule by mo [facility] three times daily Lyrica 200 MG 1 capsule Orally three times daily Apr, Active Lyrica Active Vitamin D 50,000 intl units (1.25 mg) oral capsule (1 source) Start: 11-14-2021 take 1 capsule by mouth once Vitamin D 50,000 intl units (1.25 mg) oral capsule 50,000 International_Unit = 1 cap(s), Oral, MonFri, Refills(s) 0 Start Date: 11/14/21 Status: Ordered Problems Active Problems Problem Classification Problem Date Documented Da te Episodic/Chronic Acute bronchitis (8 sources) Acute bronchitis; Translations: [Acute bronchitis, unspecified] Onset: Episodic Administrative/social admission (4 sources) Other reduced [...] 11-14-2021 Chronic Other aftercare (3 sources) Other [facility] (current) drug therapy; 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] Onset: 2 Episodic Other [...] Onset: 01-04-2016 Episodic Other aftercare (1 source) long-term (current) use of aspirin; 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] Onset: 11-06-2021 Episodic [...] (2 sources) Low back pain, unspecified M54.50 Results Test Name Value Interpretation Reference Range Facility Basophils Auto (Bld) [#/Vol] on 11-10-2023 Basophils (Bld) [#/Vol] 0.0 10 3/uL 0.0-0.1 [facility] Basophils/100 WBC Auto (Bld) on 11-10-2023 Basophils/100 WBC (Bld) 0.5 % 0.2-2.0 [facility] Eosinophils/100 WBC Auto (Bl d)on 11-10-2023 Eosinophils/100 WBC (Bld) 0.1 % Low 0.9-7.0 [facility] Erythrocyte distribution wid th Auto (RBC) [Ratio]on 11-10-2023 Erythrocyte distribution width (RBC) [Ratio] 12.7 % 11.0-15.0 [facility] Estimated glomerular filtrat ion rate (GFR) non- Americanon 11-10-2023 GFR/1.73 sq M.predicted among non-blacks MDRD (S/P/Bld) [Vol rate/Area] 58 mL/min/{1.73_m2} Low >=60 [facility] Globulin Calc (S) [Mass/Vol] on 11-10-2023 Globulin (S) [Mass/Vol] 3.6 g/dL [facility] Hematocrit Auto (Bld) [Volum e fraction]on 11-10-2023 Hematocrit (Bld) [Volume fraction] 38.3 % 36.0-48.0 [facility] Hemoglobin [Mass/volume] in Bloodon 11-10-2023 Hemoglobin (Bld) [Mass/Vol] 13.2 g/dL 12.0-16.0 [facility] INR in Platelet poor plasma by Coagulation assayon 11-10-2023 INR Coag (PPP) [Relative time] {INR} [facility] Comment on above: DESIRED INR:2.0-3.0 CONDITIONS NOT LISTED BELOW2.5-3.5 FOR PROSTHETIC HEART VALVE REPLACEMENT2.5-3.5 RECURRENT THROMBOSIS Laboratory - Chemistry and C hemistry - challengeon 11-10-2023 Albumin [Mass/Vol] 3.0 g/dL Low 3.4-5.0 [facility] ALP [Catalytic activity/Vol] 232 U/L High 46-116 [facility] ALT [Catalytic activity/Vol] 23 U/L 14-59 [facility] AST [Catalytic activity/Vol] 82 U/L High 15-37 [facility] Bilirubin [Mass/Vol] 0.6 mg/dL 0.2-1.0 [facility] Calcium [Mass/Vol] 9.3 mg/dL 8.5-10.1 [facility] Chloride [Moles/Vol] 97 mmol/L Low 98-107 [facility] CO2 [Moles/Vol] 25.7 mmol/L 21.0-32.0 [facility] Creatinine [Mass/Vol] 0.99 mg/dL 0.55-1.[address] [facility] GFR/1.73 sq M.predicted MDRD (S/P/Bld) [Vol rate/Area] mL/min/{1.73_m2} >=60 [facility] Glucose [Mass/Vol] 113 mg/dL High 74-106 [facility] Lipase [Catalytic activity/Vol] 16.0 U/L 16.0-77.0 [facility] Potassium [Moles/Vol] 3.0 mmol/L Low 3.5-5.[address] [facility] Protein [Mass/Vol] 6.6 g/dL 6.4-8.2 [facility] Sodium [Moles/Vol] 133 mmol/L Low 136-145 [facility] Urea nitrogen [Mass/Vol] 4.0 mg/dL Low 7.0-18.0 [facility] Urea nitrogen/Creatinine [Mass ratio] 4.0 mg/mg [facility] Laboratory - Hematology and Cell countson 11-10-2023 Immature granulocytes/100 WBC (Bld) 0.4 % 0.0-0.5 [facility] Leukocytes [#/volume] correc patty for nucleated erythrocytes in Blood by Automated counon 11-10-2023 WBC corrected for nucl RBC Auto (Bld) [#/Vol] 7.3 10 3/uL 4.0-11.0 [facility] Lymphocytes Auto (Bld) [#/Vo l]on 11-10-2023 Lymphocytes (Bld) [#/Vol] 1.3 10 3/uL 1.2-3.8 [facility] Lymphocytes/100 WBC Auto (Bl d)on 11-10-2023 Lymphocytes/100 WBC (Bld) 17.4 % Low 20.5-60.0 [facility] MCH Auto (RBC) [Entitic mass ]on 11-10-2023 MCH (RBC) [Entitic mass] 38.2 pg High 26.7-34.0 [facility] MCHC Auto (RBC) [Mass/Vol]on 11-10-2023 MCHC (RBC) [Mass/Vol] 34.5 g/dL 29.9-35.[address] [facility] MCV Auto (RBC) [Entitic vol] on 11-10-2023 MCV (RBC) [Entitic vol] 110.7 fL High 81.0-99.0 [facility] Monocytes Auto (Bld) [#/Vol] on 11-10-2023 Monocytes (Bld) [#/Vol] 0.5 10 3/uL 0.3-0.8 [facility] Monocytes/100 WBC Auto (Bld) on 11-10-2023 Monocytes/100 WBC (Bld) 6.7 % 1.7-12.0 [facility] Neutrophils Auto (Bld) [#/Vo l]on 11-10-2023 Neutrophils (Bld) [#/Vol] 5.5 10 3/uL 1.4-6.5 [facility] Neutrophils/100 WBC Auto (Bl d)on 11-10-2023 Neutrophils/100 WBC (Bld) 74.9 % 43.0-75.0 [facility] No Panel Informationon 11-09 Stool Occult Blood Negative [facility] Eosinophils # (Auto) 0.0 10 3/uL 0.0-0.[address] [facility] Immature Granulocyte # (Auto) 0.03 10 3/uL 0.00-0.03 [facility] Troponin I High Sensitivity 11.2 pg/mL 4.0-51.3 [facility] Comment on above: CUT-OFF POINTS HAVE BEEN [...] volume (Bld) [Entitic vol] 9.8 fL 9.5-13.5 [facility] Platelets Auto (Bld) [#/Vol] on 11-10-2023 Platelets (Bld) [#/Vol] 305 10 3/uL 150-450 [facility] Prothrombin time (PT)on 10-24 PT Coag (PPP) [Time] 9.7 s 9.0-11.6 [facility] RBC Auto (Bld) [#/Vol]on RBC (Bld) [#/Vol] 3.46 10 6/uL Low 4.20-5.40 [facility] Serum or plasma albumin/glob ulin mass ratioon 11-10-2023 Albumin/Globulin [Mass ratio] 0.8 {ratio} [facility] Serum or plasma anion gap de terminationon 11-10-2023 Anion gap [Moles/Vol] 13.3 mmol/L [facility] Basophils Auto (Bld) [#/Vol] on 09-03-2023 Basophils (Bld) [#/Vol] 0.0 10 3/uL 0.0-0.1 [facility] Basophils/100 WBC Auto (Bld) on 09-03-2023 Basophils/100 WBC (Bld) 0.4 % 0.2-2.0 [facility] Eosinophils/100 WBC Auto (Bl d)on 09-03-2023 Eosinophils/100 WBC (Bld) 0.4 % 0.9-7.0 [facility] Erythrocyte distribution wid th Auto (RBC) [Ratio]on 09-03-2023 Erythrocyte distribution width (RBC) [Ratio] 16.8 % 11.0-15.0 [facility] Estimated glomerular filtrat ion rate (GFR) non- Americanon 09-03-2023 GFR/1.73 sq M.predicted among non-blacks MDRD (S/P/Bld) [Vol rate/Area] 29 mL/min/{1.73_m2} >=60 [facility] Hematocrit Auto (Bld) [Volum e fraction]on 09-03-2023 Hematocrit (Bld) [Volume fraction] 36.0 % 36.0-48.0 [facility] Hemoglobin [Mass/volume] in Bloodon 09-03-2023 Hemoglobin (Bld) [Mass/Vol] 12.3 g/dL 12.0-16.0 [facility] Laboratory - Chemistry and C hemistry - challengeon 09-03-2023 Calcium [Mass/Vol] 9.3 mg/dL 8.5-10.1 [facility] Chloride [Moles/Vol] 98 mmol/L 98-107 [facility] CO2 [Moles/Vol] 23.8 mmol/L 21.0-32.0 [facility] Creatinine [Mass/Vol] 1.80 mg/dL 0.55-1.[address] [facility] GFR/1.73 sq M.predicted MDRD (S/P/Bld) [Vol rate/Area] 36 mL/min/{1.73_m2} >=60 [facility] Glucose [Mass/Vol] 103 mg/dL 74-106 [facility] Potassium [Moles/Vol] 3.2 mmol/L 3.5-5.[address] [facility] Sodium [Moles/Vol] 137 mmol/L 136-145 [facility] Urea nitrogen [Mass/Vol] 2.0 mg/dL 7.0-18.0 [facility] Urea nitrogen/Creatinine [Mass ratio] 1.1 mg/mg [facility] Laboratory - Hematology and Cell countson 09-03-2023 Immature granulocytes/100 WBC (Bld) 0.4 % 0.0-0.5 [facility] Leukocytes [#/volume] correc patty for nucleated erythrocytes in Blood by Automated counon 09-03-2023 WBC corrected for nucl RBC Auto (Bld) [#/Vol] 9.9 10 3/uL 4.0-11.0 [facility] Lymphocytes Auto (Bld) [#/Vo l]on 09-03-2023 Lymphocytes (Bld) [#/Vol] 1.7 10 3/uL 1.2-3.8 [facility] Lymphocytes/100 WBC Auto (Bl d)on 09-03-2023 Lymphocytes/100 WBC (Bld) 17.4 % 20.5-60.0 [facility] MCH Auto (RBC) [Entitic mass ]on 09-03-2023 MCH (RBC) [Entitic mass] 36.4 pg 26.7-34.0 [facility] MCHC Auto (RBC) [Mass/Vol]on 09-03-2023 MCHC (RBC) [Mass/Vol] 34.2 g/dL 29.9-35.[address] [facility] MCV Auto (RBC) [Entitic vol] on 09-03-2023 MCV (RBC) [Entitic vol] 106.5 fL 81.0-99.0 [facility] Monocytes Auto (Bld) [#/Vol] on 09-03-2023 Monocytes (Bld) [#/Vol] 0.8 10 3/uL 0.3-0.8 [facility] Monocytes/100 WBC Auto (Bld) on 09-03-2023 Monocytes/100 WBC (Bld) 8.0 % 1.7-12.0 [facility] Neutrophils Auto (Bld) [#/Vo l]on 09-03-2023 Neutrophils (Bld) [#/Vol] 7.3 10 3/uL 1.4-6.5 [facility] Neutrophils/100 WBC Auto (Bl d)on 09-03-2023 Neutrophils/100 WBC (Bld) 73.4 % 43.0-75.0 [facility] No Panel Informationon 09-02 Eosinophils # (Auto) 0.0 10 3/uL 0.0-0.[address] [facility] Immature Granulocyte # (Auto) 0.04 10 3/uL 0.00-0.03 [facility] Troponin I High Sensitivity 19.5 pg/mL 4.0-51.3 [facility] Comment on above: CUT-OFF POINTS HAVE BEEN [...] volume (Bld) [Entitic vol] 9.8 fL 9.5-13.5 [facility] Platelets Auto (Bld) [#/Vol] on 09-03-2023 Platelets (Bld) [#/Vol] 312 10 3/uL 150-450 [facility] RBC Auto (Bld) [#/Vol]on RBC (Bld) [#/Vol] 3.38 10 6/uL 4.20-5.40 [facility] Serum or plasma anion gap de terminationon 09-03-2023 Anion gap [Moles/Vol] 18.4 mmol/L [facility] CT ANGIO CORONARY ART WITH H EARTFLOW IF SCORE >30%on 07-15-2023 CT ANGIO CORONARY [...] PM -------- ORIGINAL REPORT -------- Dictation workstation: [id number] Interpreted By: Ibrahima Merlos, STUDY: CT ANGIO CORONARY ART WITH HEARTFLOW IF SCORE >30%; 07/15/2023 12:36 pm INDICATION: Signs/Symptoms:chest pain,angina. COMPARISON: None. ACCESSION NUMBER(S): [id number] ORDERING CLINICIAN: QUAN HUNTER TECHNIQUE: Using multi-detector [...] gender, and race in asymptomatic patients. Reading Patient Consumer Marketer: Dr. Ibrahima Merlos, Date: 07/15/2023 4:40 pm Signed by: Ibrahima Merlos 07/15/2023 4:43 PM Dictation workstation: [id number] [facility] CTA Heart and Coronary arter ies WO and W contrast Mustapha 07-15-2023 Addendum by Miriam Mireles MD on 07/15/2023 [...] PM -------- ORIGINAL REPORT -------- Dictation workstation: [id number] [facility] Work Phone: 1. Mild diffuse po nary artery disease without significant stenosis. 2. Coronary artery calcium score 260, 99th percentile for age, gender, and race in asymptomatic patients. Reading Patient Consumer Marketer: Dr. Ibrahima Merlos, Date: 07/15/2023 4:40 pm Signed by: Ibrahima Merlos 07/15/2023 4:43 PM Dictation workstation: [id number] Interpreted By: Ibrahima Avery, STUDY: CT ANGIO CORONARY ART WITH HEARTFLOW IF SCORE >30%; 07/15/2023 12:36 pm INDICATION: Signs/Symptoms:chest pain,angina. COMPARISON: None. ACCESSION NUMBER(S): [id number] ORDERING CLINICIAN: QUAN HUNTER TECHNIQUE: Using multi-detector [...] INDICATION: Signs/Symptoms:chest pain,angina. COMPARISON: None. ACCESSION NUMBER(S): [id number] ORDERING CLINICIAN: QUAN HUNTER TECHNIQUE: Using multi-detector [...] gender, and race in asymptomatic patients. Reading Patient Consumer Marketer: Dr. Ibrahima Merlos, Date: 07/15/2023 4:40 pm Signed by: Ibrahima Merlos 07/15/2023 4:43 PM Dictation workstation: [id number] [facility] Work Phone: Radiology Study observation (narrative) [facility] Work Phone: CTA Heart and Coronary arter ies WO and W contrast IVOrdered By: Miriam Zuleta on 07-15-2023 [facility] Work Phone: Creatinineon 07-15-2023 Creatinine [Mass/Vol] 0.7 mg/dL Normal 0.6-1.3 [facility] Comment on above: Result Comment: Hydr oxyurea can cause significant interference with creatinine measurement using the i-STAT device. An alternate method of creatinine measurement must be used in patients treated with hydroxyurea. Performed By: #### 2 160-0 #### MIGUEL BRADLEY ([id number]) [facility] ([facility]) [address] [place] [address] Creatinine [Mass/Vol]on 06-27 GFR/1.73 sq M.predicted MDRD (S/P/Bld) [Vol rate/Area] - [facility] Comment on above: Calculations of martin mated GFR are performed using the 2020 CKD-EPI Study Refit equation without the race variable for the IDMS-Traceable Creatinine Methods. https://jasn.asnjournals.org/content/early/ASN.20836 80435 Interpretation and review of laboratory results Normal [facility] GFR/1.73 sq M.predicted MDRD (S/P/Bld) [Vol rate/Area] mL/min/{1.73_m2} Normal >=60 [facility] Comment on above: Result Comment: Calc ulations of estimated GFR are performed using the 2020 CKD-EPI Study Refit ???equation without the race variable for the IDMS-Traceable Creatinine Methods. https://jasn.asnjournals.org/content/early/ASN.03215 86234 Performed By: #### 2 160-0 #### MIGUEL BRADLEY ([id number]) [facility] ([facility]) [address] [place] [address] Laboratory - Chemistry and C hemistry - challengeon 07-15-2023 Creatinine [Mass/Vol] 0.7 mg/dL 0.6 - 1.3 mg/dL [facility] Comment on above: Hydroxyurea can caus e significant interference with creatinine measurement using the i-STAT device. An alternate method of creatinine measurement must be used in patients treated with hydroxyurea. TRANSTHORACIC ECHO (TTE) [facility] 06-13-2023 TRANSTHORACIC ECHO (TTE) COMPLETE [address], [address], [place] [address] TRANSTHORACIC ECHOCARDIOGRAM REPORT Patient Name: CANDY Mckee Physician: [id number] Ibrahima Serra DO Study Date: 06/13/2023 Ordering Provider: [id number] QUAN HUNTER MRN/PID: [id number] Fellow: Nurse: Date of /Age: 5 1970 / 52 years [employer] Rep: Ibrahima Valdes Gender: F Additional Staff: Height: 162.56 cm Admit Date: 06/13/2023 Weight: 86.18 kg Admission Status: Outpatient BSA: 1.91 m2 Department Location: [facility] Blood Pressure: 110 /60 mmHg Study Type: TRANSTHORACIC ECHO (TTE) COMPLETE Diagnosis/ICD: Shortness of breath-R06.02; Endocarditis, valve unspecified-I38 Indication: SOB, HV Disease, Dizziness, AO Dilation CPT Codes: Echo Complete w Full Doppler-25709 Patient History: Smoker: Current. Pertinent History: HTN [...] RA Area A4C: 12.5 cm2 RA Major Hull A4C: 4.3 cm AORTA MEASUREMENTS: Normal Ranges: Asc Ao, d: 4.10 cm (2.1-3.4cm) LV SYSTOLIC FUNCT (more content not included)... [facility] US Heart TransthoracicOrdere d By: Ibrahima Serra on 06-13-2023 Aortic Valve Area by Continuity of Peak Velocity 3.48 cm2 [facility] Work Phone: Aortic Valve Area by Continuity of VTI 3.57 cm2 [facility] Work Phone: AV mn grad 3.0 mmHg [facility] Work Phone: AV pk grad 4.7 mmHg [facility] Work Phone: AV pk liya 1.08 m/s [facility] Work Phone: LV A4C EF 55.8 [facility] Work Phone: LV biplane EF 56 % [facility] Work Phone: LVIDd 4.20 cm [facility] Work Phone: LVOT diam 2.20 cm [facility] Work Phone: MV avg E/e' ratio 4.90 [facility] Work Phone: [phone] MV E/A ratio 0.62 [facility] Work Phone: RVSP 35.5 mmHg [facility] Work Phone: [facility] Work Phone: Heart Transthoracicon [address], [address] [address] TRANSTHORACIC ECHOCARDIOGRAM REPORT Patient Name: CANDY Mckee Physician: [id number] Ibrahima Serra DO Study Date: 06/13/2023 Ordering Provider: [id number] QUAN HUNTER MRN/PID: [id number] Fellow: Nurse: Date of /Age: 5 1970 / 52 years [employer] Rep: Ibrahima Valdes Gender: F Additional Staff: Height: 162.56 cm Admit Date: 06/13/2023 Weight: 86.18 kg Admission Status: Outpatient BSA: 1.91 m2 Department Location: [facility] Blood Pressure: 110 /60 mmHg Study Type: TRANSTHORACIC ECHO (TTE) COMPLETE Diagnosis/ICD: Shortness of breath-R06.02; Endocarditis, valve unspecified-I38 Indication: SOB, HV Disease, Dizziness, AO Dilation CPT Codes: Echo Complete w Full Doppler-72888 Patient History: Smoker: Current. Pertinent History: HTN [...] not included)... Ibrahima Meyer DO - 06/13/[address], [address], [place] [address] TRANSTHORACIC ECHOCARDIOGRAM REPORT Patient Name: CANDY Mckee Physician: [id number] Ibrahima Serra DO Study Date: 06/13/2023 Ordering Provider: [id number] QUAN HUNTER MRN/PID: [id number] Fellow: Nurse: Date of /Age: 5 1970 / 52 years [employer] Rep: Ibrahima Valdes Gender: F Additional Staff: Height: 162.56 cm Admit Date: 06/13/2023 Weight: 86.18 kg Admission Status: Outpatient BSA: 1.91 m2 Department Location: [facility] Blood Pressure: 110 /60 mmHg Study Type: TRANSTHORACIC ECHO (TTE) COMPLETE Diagnosis/ICD: Shortness of breath-R06.02; Endocarditis, valve unspecified-I38 Indication: SOB, HV Disease, Dizziness, AO Dilation CPT Codes: Echo Complete w Full Doppler-57998 Patient History: Smoker: Current. Pertinent History: HTN [...] cm2 RA Cornelius (more content not included)... [facility] Work Phone: Auth for Release of Medical Recordson 07-02-2022 Auth for Release of Medical Records [id number]:127 Normal [facility] PROF 14(COMP METB)on 022 Albumin [Mass/Vol] 4.2 g/dL Normal 3.4-5.0 [facility] Comment on above: Performed By: #### C MP #### [facility] [address] [place] [address] Dr. Leonides Anders Albumin/Globulin [Mass ratio] 1.3 {ratio} Normal [facility] Comment on above: Performed By: #### C MP #### [facility] [address] [place] [address] Dr. Leonides Anders ALP [Catalytic activity/Vol] 90 U/L Normal 46-116 [facility] Comment on above: Performed By: #### C MP #### [facility] [address] [place] [address] Dr. Leonides Anders ALT [Catalytic activity/Vol] 25 U/L Normal 14-59 [facility] Comment on above: Performed By: #### C MP #### [facility] [address] [place] [address] Dr. Leonides Anders Anion gap [Moles/Vol] 12.1 mmol/L Normal [facility] Comment on above: Performed By: #### C MP #### [facility] [address] [place] [address] Dr. Leonides Anders AST [Catalytic activity/Vol] 20 U/L Normal 15-37 [facility] Comment on above: Performed By: #### C MP #### [facility] [address] [place] [address] Dr. Leonides Anders Bilirubin [Mass/Vol] 0.3 mg/dL Normal 0.2-1.0 [facility] Comment on above: Performed By: #### C MP #### [facility] [address] [place] [address] Dr. Leonides Anders Calcium [Mass/Vol] 9.4 mg/dL Normal 8.5-10.1 [facility] Comment on above: Performed By: #### C MP #### [facility] [address] [place] [address] Dr. Leonides Anders Chloride [Moles/Vol] 99 mmol/L Normal 98-107 [facility] Comment on above: Performed By: #### C MP #### [facility] [address] [place] [address] Dr. Leonides Anders CO2 [Moles/Vol] 26.2 mmol/L Normal 21.0-32.0 [facility] Comment on above: Performed By: #### C MP #### [facility] [address] [place] [address] Dr. Leonides Anders Creatinine [Mass/Vol] 0.68 mg/dL Normal 0.55-1.02 [facility] Comment on above: Performed By: #### C MP #### [facility] [address] [place] [address] Dr. Leonides Anders EGFR-AF CAMBODIAN >60 Normal >=60 [facility] Comment on above: Performed By: #### C MP #### [facility] [address] [place] [address] Dr. Leonides Anders EGFR-NON AF CAMBODIAN >60 Normal >=60 [facility] Comment on above: Performed By: #### C MP #### [facility] [address] [place] [address] Dr. Leonides Anders Globulin (S) [Mass/Vol] 3.3 g/dL Normal [facility] Comment on above: Performed By: #### C MP #### [facility] [address] [place] [address] Dr. Leonides Anders Glucose [Mass/Vol] 97 mg/dL Normal 74-106 [facility] Comment on above: Performed By: #### C MP #### [facility] [address] [place] [address] Dr. Leonides Anders Potassium [Moles/Vol] 4.3 mmol/L Normal 3.5-5.1 [facility] Comment on above: Performed By: #### C MP #### [facility] [address] [place] [address] Dr. Leonides Anders Protein [Mass/Vol] 7.5 g/dL Normal 6.4-8.2 [facility] Comment on above: Performed By: #### C MP #### [facility] [address] [place] [address] Dr. Leonides Anders Sodium [Moles/Vol] 133 mmol/L Critically low 136-145 [facility] Comment on above: Performed By: #### C MP #### [facility] [address] [place] [address] Dr. Leonides Anders Urea nitrogen [Mass/Vol] 10.0 mg/dL Normal 7.0-18.0 [facility] Comment on above: Performed By: #### C MP #### [facility] [address] [place] [address] Dr. Leonides Anders Urea nitrogen/Creatinine [Mass ratio] 14.7 mg/mg Normal [facility] Comment on above: Performed By: #### C MP #### [facility] [address] [place] [address] Dr. Leonides Anders CBC AUTO DIFFon 03-25-2022 BASO # 0.1 103/ul Normal 0.0-0.1 [facility] Comment on above: Performed By: #### C BC #### [facility] [address] [place] [address] Dr. Leonides Anders Basophils/100 WBC (Bld) 0.5 % Normal 0.2-2.0 [facility] Comment on above: Performed By: #### C BC #### [facility] [address] [place] [address] Dr. Leonides Anders EO # 0.1 103/ul Normal 0.0-0.7 [facility] Comment on above: Performed By: #### C BC #### [facility] [address] [place] [address] Dr. Leonides Anders Eosinophils/100 WBC (Bld) 1.1 % Normal 0.9-7.0 [facility] Comment on above: Performed By: #### C BC #### [facility] [address] [place] [address] Dr. Leonides Anders Erythrocyte distribution width (RBC) [Ratio] 12.9 % Normal 11.0-15.0 [facility] Comment on above: Performed By: #### C BC #### [facility] [address] [place] [address] Dr. Leonides Anders Hematocrit (Bld) [Volume fraction] 38.8 % Normal 36.0-48.0 [facility] Comment on above: Performed By: #### C BC #### [facility] [address] [place] [address] Dr. Leonides Anders Hemoglobin (Bld) [Mass/Vol] 13.8 g/dL Normal 12.0-16.0 [facility] Comment on above: Performed By: #### C BC #### [facility] [address] [place] [address] Dr. Leonides Anders IG # 0.03 10e3/ul Normal 0.00-0.03 [facility] Comment on above: Performed By: #### C BC #### [facility] [address] [place] [address] Dr. Leonides Anders IG % 0.3 % Normal 0.0-0.5 [facility] Comment on above: Performed By: #### C BC #### [facility] [address] [place] [address] Dr. Leonides Anders LYMPH # 2.5 103/ul Normal 1.2-3.8 [facility] Comment on above: Performed By: #### C BC #### [facility] [address] [place] [address] Dr. Leonides Anders Lymphocytes/100 WBC (Bld) 26.5 % Normal 20.5-60.0 [facility] Comment on above: Performed By: #### C BC #### [facility] [address] [place] [address] Dr. Leonides Anders MANUAL DIFF REQ NO Normal [facility] Comment on above: Performed By: #### C BC #### [facility] [address] [place] [address] Dr. Leonides Anders MCH (RBC) [Entitic mass] 32.0 pg Normal 26.7-34.0 [facility] Comment on above: Performed By: #### C BC #### [facility] [address] [place] [address] Dr. Leonides Anders MCHC (RBC) [Mass/Vol] 35.6 g/dL Critically high 29.9-35.2 [facility] Comment on above: Performed By: #### C BC #### [facility] [address] [address] [address] Leonides Anders MCV (RBC) [Entitic vol] 90.0 fL Normal 81.0-99.0 [facility] Comment on above: Performed By: #### C BC #### [facility] [address] [address] [address] Leonides Anders MONO # 0.9 103/ul Critically high 0.3-0.8 [facility] Comment on above: Performed By: #### C BC #### [facility] [address] [place] [address] Dr. Leonides Anders Monocytes/100 WBC (Bld) 9.8 % Normal 1.7-12.0 [facility] Comment on above: Performed By: #### C BC #### [facility] [address] [place] [address] Dr. Leonides Anders NEUT # 5.8 103/ul Normal 1.4-6.5 [facility] Comment on above: Performed By: #### C BC #### [facility] [address] [place] [address] Dr. Leonides Anders Neutrophils/100 WBC (Bld) 61.8 % Normal 43.0-75.0 [facility] Comment on above: Performed By: #### C BC #### [facility] [address] [place] [address] Dr. Leonides Anders Platelet mean volume (Bld) [Entitic vol] 9.5 fL Normal 9.5-13.5 [facility] Comment on above: Performed By: #### C BC #### [facility] [address] [place] [address] Dr. Leonides Anders PLT 255 103/ul Normal 150-450 [facility] Comment on above: Performed By: #### C BC #### [facility] [address] [place] [address] Dr. Leonides Anders RBC 4.31 106/ul Normal 4.20-5.40 [facility] Comment on above: Performed By: #### C BC #### [facility] [address] [address] [address] Leonides Anders WBC 9.4 103/ul Normal 4.0-11.0 [facility] Comment on above: Performed By: #### C BC #### [facility] [address] [address] [address] Leonides Anders PROF CHEM 8 (BAS METB)on Anion gap [Moles/Vol] 15.7 mmol/L Normal [facility] Comment on above: Performed By: #### B MP #### [facility] [address] [address] [address] Leonides Anders Calcium [Mass/Vol] 9.1 mg/dL Normal 8.5-10.1 [facility] Comment on above: Performed By: #### B MP #### [facility] [address] [address] [address] Leonides Anders Chloride [Moles/Vol] 91 mmol/L Critically low 98-107 [facility] Comment on above: Performed By: #### B MP #### [facility] [address] [address] [address] Leonides Anders CO2 [Moles/Vol] 22.8 mmol/L Normal 21.0-32.0 [facility] Comment on above: Performed By: #### B MP #### [facility] [address] [address] [address] Leonides Anders Creatinine [Mass/Vol] 0.57 mg/dL Normal 0.55-1.02 [facility] Comment on above: Performed By: #### B MP #### [facility] [address] [address] [address] Leonides Anders EGFR-AF CAMBODIAN >60 Normal >=60 [facility] Comment on above: Performed By: #### B MP #### [facility] [address] [address] [address] Leonides Anders EGFR-NON AF CAMBODIAN >60 Normal >=60 [facility] Comment on above: Performed By: #### B MP #### [facility] [address] [address] [address] Leonides Anders Glucose [Mass/Vol] 119 mg/dL Critically high 74-106 [facility] Comment on above: Performed By: #### B MP #### [facility] [address] [address] [address] Leonides Anders Potassium [Moles/Vol] 3.5 mmol/L Normal 3.5-5.1 [facility] Comment on above: Performed By: #### B MP #### [facility] [address] [address] [address] Leonides Anders Sodium [Moles/Vol] 126 mmol/L Critically low 136-145 [facility] Comment on above: Performed By: #### B MP #### [facility] [address] [place] [address] Dr. Leonides Anders Urea nitrogen [Mass/Vol] 4.0 mg/dL Critically low 7.0-18.0 [facility] Comment on above: Performed By: #### B MP #### [facility] [address] [address] [address] Leonides Anders Urea nitrogen/Creatinine [Mass ratio] 7.0 mg/mg Normal [facility] Comment on above: Performed By: #### B MP #### [facility] [address] [place] [address] Dr. Leonides Anders VITAMIN B12on 03-25-2022 Cobalamin (Vitamin B12) [Mass/Vol] 192.0 pg/mL Critically low 193.0-986. 0 [facility] Comment on above: Performed By: #### V ITB12 #### [facility] [address] [place] [address] Dr. Leonides Anders RAD - Ultrasound Reporton RAD - Ultrasound Report [id number]:127 Normal [facility] VIT D 1 25 DIHYDROXYon 12-06 Calcitriol(1,25 di-OH Vit D) 57.4 pg/mL Normal 24.8-81.5 [facility] Comment on above: Result Comment: Pl ease note reference interval change Performed By: #### V [id number] ####[facility] [address] [place], [place] [address]Dr. Leonides Chago CBC AUTO DIFFon 12-04-2021 BASO # 0.1 103/ul Normal 0.0-0.1 [facility] Comment on above: Performed By: #### C BC ####[facility] [address] [place], [place] [address]Dr. Leonides Anders Basophils/100 WBC (Bld) 0.5 % Normal 0.2-2.0 [facility] Comment on above: Performed By: #### C BC ####[facility] [address] [place], [place] [address]Dr. Kanikatorey Chago EO # 0.2 103/ul Normal 0.0-0.7 [facility] Comment on above: Performed By: #### C BC ####[facility] [address] [place], [place] [address]Dr. Kanikatorey Anders Eosinophils/100 WBC (Bld) 2.3 % Normal 0.9-7.0 [facility] Comment on above: Performed By: #### C BC ####[facility] [address] [place], [place] [address]Dr. Leonides Chago Erythrocyte distribution width (RBC) [Ratio] 13.6 % Normal 11.0-15.0 [facility] Comment on above: Performed By: #### C BC ####[facility] [address] [place], [place] [address]Dr. Kanikatorey Chago Hematocrit (Bld) [Volume fraction] 42.1 % Normal 36.0-48.0 [facility] Comment on above: Performed By: #### C BC ####[facility] [address] [place], [place] [address]Dr. Leonides Chago Hemoglobin (Bld) [Mass/Vol] 14.4 g/dL Normal 12.0-16.0 [facility] Comment on above: Performed By: #### C BC ####[facility] [address] [place], [place] [id number]. Leonides Anders IG # 0.02 10e3/ul Normal 0.00-0.03 [facility] Comment on above: Performed By: #### C BC ####[facility] [address] [address]Dr. Leonides Anders IG % 0.2 % Normal 0.0-0.5 [facility] Comment on above: Performed By: #### C BC ####[facility] [address] [address]DrAna Anders LYMPH # 3.6 103/ul Normal 1.2-3.8 [facility] Comment on above: Performed By: #### C BC ####[facility] [address] [place], [place] [address]DrAna Anders Lymphocytes/100 WBC (Bld) 38.3 % Normal 20.5-60.0 [facility] Comment on above: Performed By: #### C BC ####[facility] [address] [place], [place] [address]DrAna Anders MANUAL DIFF REQ NO Normal [facility] Comment on above: Performed By: #### C BC ####[facility] [address] [place], [place] [address]DrAna Kanikatorey Anders MCH (RBC) [Entitic mass] 31.0 pg Normal 26.7-34.0 [facility] Comment on above: Performed By: #### C BC ####[facility] [address] [place], [place] [address]DrAna Anders MCHC (RBC) [Mass/Vol] 34.2 g/dL Normal 29.9-35.2 [facility] Comment on above: Performed By: #### C BC ####[facility] [address] [place], [place] [address]DrAna Anders MCV (RBC) [Entitic vol] 90.5 fL Normal 81.0-99.0 [facility] Comment on above: Performed By: #### C BC ####[facility] [address] [place], [place] [address]DrAna Anders MONO # 0.8 103/ul Normal 0.3-0.8 [facility] Comment on above: Performed By: #### C BC ####[facility] [address] [id number] Anders Monocytes/100 WBC (Bld) 8.7 % Normal 1.7-12.0 [facility] Comment on above: Performed By: #### C BC ####[facility] [address] [address]DrAna Anders NEUT # 4.7 103/ul Normal 1.4-6.5 [facility] Comment on above: Performed By: #### C BC ####[facility] [address] [address]Dr. Leonides Anders Neutrophils/100 WBC (Bld) 50.0 % Normal 43.0-75.0 [facility] Comment on above: Performed By: #### C BC ####[facility] [address] [address]DrAna Leonides Anders Platelet mean volume (Bld) [Entitic vol] 9.3 fL Critically low 9.5-13.5 [facility] Comment on above: Performed By: #### C BC ####[facility] [address] [address]Dr. Leonides Anders PLT 263 103/ul Normal 150-450 [facility] Comment on above: Performed By: #### C BC ####[facility] [address] [id number]. Leonides Anders RBC 4.65 106/ul Normal 4.20-5.40 [facility] Comment on above: Performed By: #### C BC ####[facility] [address] [id number]. Leonides Anders WBC 9.5 103/ul Normal 4.0-11.0 [facility] Comment on above: Performed By: #### C BC ####[facility] [address] [address]DrAna Leonides Anders FERRITINon 12-04-2021 Ferritin [Mass/Vol] 69.0 ng/mL Normal 8.0-252.0 [facility] Comment on above: Performed By: #### F ERR, VITB12 #### [facility] [address] [address] [address] Leonides Anders LIPID PROFILEon 12-04-2021 CHOL-HDL RATIO NORM SEE BELOW Normal [facility] Comment on above: Result Comment: 3.3 - 4.4 LOW RISK 4.4 - 7.1 AVERAGE RISK 7.1 - 11.0 MODERATE RISK >11.0 HIGH RISK Performed By: #### C MP, LIPID #### [facility] [address] [address] [address] Leonides Anders Cholesterol [Mass/Vol] 234 mg/dL Critically high <=200 [facility] Comment on above: Performed By: #### C MP, LIPID #### [facility] [address] [address] [address] Leonides Anders Cholesterol in HDL [Mass/Vol] 48 mg/dL Normal 40-60 [facility] Comment on above: Performed By: #### C MP, LIPID #### [facility] [address] [address] [address] Leonides Anders Cholesterol in LDL [Mass/Vol] 150.8 mg/dL Normal [facility] Comment on above: Performed By: #### C MP, LIPID #### [facility] [address] [address] [address] Leonides Anders Cholesterol.total/Chol esterol in HDL [Mass ratio] 4.9 {ratio} Normal [facility] Comment on above: Performed By: #### C MP, LIPID #### [facility] [address] [address] [address] Leonides Anders HDL NORMAL > or = 60 mg/dl - LO W CARDIOVASCULAR RISK <40 mg/dl - HIGH CARDIOVASCULAR RISK Normal [facility] Comment on above: Performed By: #### C MP, LIPID #### [facility] [address] [address] [address] Leonides Anders LDL CALC NORMAL SEE BELOW Normal [facility] Comment on above: Result Comment: <100 mg/dl OPTIMAL 100 - 129 mg/dl NEAR OR ABOVE OPTIMAL 130 - 159 mg/dl BORDERLINE HIGH 160 - 189 mg/dl HIGH >190 mg/dl VERY HIGH Performed By: #### C MP, LIPID #### [facility] [address] [place] [address] Dr. Leonides Anders Triglyceride [Mass/Vol] 176 mg/dL Critically high <=150 [facility] Comment on above: Performed By: #### C MP, LIPID #### [facility] [address] [place] [address] Dr. Leonides Anders VLDL CALC 35.2 mg/dL Normal [facility] Comment on above: Performed By: #### C MP, LIPID #### [facility] [address] [place] [address] Dr. Leonides Anders PROF 14(COMP METB)on 022 Albumin [Mass/Vol] 4.3 g/dL Normal 3.4-5.0 [facility] Comment on above: Performed By: #### C MP, LIPID #### [facility] [address] [place] [address] Dr. Leonides Anders Albumin/Globulin [Mass ratio] 1.3 {ratio} Normal [facility] Comment on above: Performed By: #### C MP, LIPID #### [facility] [address] [place] [address] Dr. Leonides Anders ALP [Catalytic activity/Vol] 96 U/L Normal 46-116 [facility] Comment on above: Performed By: #### C MP, LIPID #### [facility] [address] [place] [address] Dr. Leonides Anders ALT [Catalytic activity/Vol] 27 U/L Normal 14-59 [facility] Comment on above: Performed By: #### C MP, LIPID #### [facility] [address] [place] [address] Dr. Leonides Anders Anion gap [Moles/Vol] 12.5 mmol/L Normal [facility] Comment on above: Performed By: #### C MP, LIPID #### [facility] [address] [place] [address] Dr. Leonides Anders AST [Catalytic activity/Vol] 16 U/L Normal 15-37 [facility] Comment on above: Performed By: #### C MP, LIPID #### [facility] [address] [place] [address] Dr. Leonides Anders Bilirubin [Mass/Vol] 0.3 mg/dL Normal 0.2-1.0 [facility] Comment on above: Performed By: #### C MP, LIPID #### [facility] [address] [place] [address] Dr. Leonides Anders Calcium [Mass/Vol] 9.5 mg/dL Normal 8.5-10.1 [facility] Comment on above: Performed By: #### C MP, LIPID #### [facility] [address] [place] [address] Dr. Leonides Anders Chloride [Moles/Vol] 98 mmol/L Normal 98-107 [facility] Comment on above: Performed By: #### C MP, LIPID #### [facility] [address] [place] [address] Dr. Leonides Anders CO2 [Moles/Vol] 27.5 mmol/L Normal 21.0-32.0 [facility] Comment on above: Performed By: #### C MP, LIPID #### [facility] [address] [place] [address] Dr. Leonides Anders Creatinine [Mass/Vol] 0.82 mg/dL Normal 0.55-1.02 [facility] Comment on above: Performed By: #### C MP, LIPID #### [facility] [address] [place] [address] Dr. Leonides Anders EGFR-AF CAMBODIAN >60 Normal >=60 [facility] Comment on above: Performed By: #### C MP, LIPID #### [facility] [address] [place] [address] Dr. Leonides Anders EGFR-NON AF CAMBODIAN >60 Normal >=60 [facility] Comment on above: Performed By: #### C MP, LIPID #### [facility] [address] [place] [address] Dr. Leonides Anders Globulin (S) [Mass/Vol] 3.4 g/dL Normal [facility] Comment on above: Performed By: #### C MP, LIPID #### [facility] [address] [place] [address] Dr. Leonides Anders Glucose [Mass/Vol] 98 mg/dL Normal 74-106 [facility] Comment on above: Performed By: #### C MP, LIPID #### [facility] [address] [place] [address] Dr. Leonides Anders Potassium [Moles/Vol] 4.0 mmol/L Normal 3.5-5.1 [facility] Comment on above: Performed By: #### C MP, LIPID #### [facility] [address] [place] [address] Dr. Leonides Anders Protein [Mass/Vol] 7.7 g/dL Normal 6.4-8.2 [facility] Comment on above: Performed By: #### C MP, LIPID #### [facility] [address] [place] [address] Dr. Leonides Anders Sodium [Moles/Vol] 134 mmol/L Critically low 136-145 [facility] Comment on above: Performed By: #### C MP, LIPID #### [facility] [address] [place] [address] Dr. Leonides Anders Urea nitrogen [Mass/Vol] 9.0 mg/dL Normal 7.0-18.0 [facility] Comment on above: Performed By: #### C MP, LIPID #### [facility] [address] [place] [address] Dr. Leonides Anders Urea nitrogen/Creatinine [Mass ratio] 11.0 mg/mg Normal [facility] Comment on above: Performed By: #### C MP, LIPID #### [facility] [address] [place] [address] Dr. Leonides Anders US SINGLE QUAD RT [...] by: TUYET JONES Date: 2021-12-04 19:11 Normal [facility] VITAMIN B12on 12-04-2021 Cobalamin (Vitamin B12) [Mass/Vol] 232.0 pg/mL Normal 193.0-986. 0 [facility] Comment on above: Performed By: #### F ERR, VITB12 #### [facility] [address] [address] [address] Leonides Anders Ambulatory Visit Summaryon 0 [...] anemia Tobacco abuse Vitamin D deficiency Normal [facility] Physician Referralon 022 Physician Referral [id number]:[id number] Normal [facility] CBC AUTO DIFFon 11-03-2021 BASO # 0.0 103/ul Normal 0.0-0.1 [facility] Comment on above: Performed By: #### C BC #### [facility] [address] [place] [address] Dr. Leonides Anders Basophils/100 WBC (Bld) 0.6 % Normal 0.2-2.0 [facility] Comment on above: Performed By: #### C BC #### [facility] [address] [place] [address] Dr. Leonides Anders EO # 0.1 103/ul Normal 0.0-0.7 [facility] Comment on above: Performed By: #### C BC #### [facility] [facility] [address] [place] [address] Dr. Leonides Anders Eosinophils/100 WBC (Bld) 0.9 % Normal 0.9-7.0 [facility] Comment on above: Performed By: #### C BC #### [facility] [address] [place] [address] Dr. Leonides Anders Erythrocyte distribution width (RBC) [Ratio] 14.1 % Normal 11.0-15.0 [facility] Comment on above: Performed By: #### C BC #### [facility] [address] [place] [address] Dr. Leonides Anders Hematocrit (Bld) [Volume fraction] 44.9 % Normal 36.0-48.0 [facility] Comment on above: Performed By: #### C BC #### [facility] [address] [place] [address] Dr. Leonides Anders Hemoglobin (Bld) [Mass/Vol] 15.4 g/dL Normal 12.0-16.0 [facility] Comment on above: Performed By: #### C BC #### [facility] [address] [place] [address] Dr. Leonides Anders IG # 0.02 10e3/ul Normal 0.00-0.03 [facility] Comment on above: Performed By: #### C BC #### [facility] [address] [place] [address] Dr. Leonides Anders IG % 0.3 % Normal 0.0-0.5 [facility] Comment on above: Performed By: #### C BC #### [facility] [address] [place] [address] Dr. Leonides Anders LYMPH # 1.4 103/ul Normal 1.2-3.8 [facility] Comment on above: Performed By: #### C BC #### [facility] [address] [place] [address] Dr. Leonides Anders Lymphocytes/100 WBC (Bld) 20.3 % Critically low 20.5-60.0 [facility] Comment on above: Performed By: #### C BC #### [facility] [address] [place] [address] Dr. Leonides Anders MANUAL DIFF REQ NO Normal [facility] Comment on above: Performed By: #### C BC #### [facility] [address] [place] [address] Dr. Leonides Anders MCH (RBC) [Entitic mass] 30.6 pg Normal 26.7-34.0 [facility] Comment on above: Performed By: #### C BC #### [facility] [address] [place] [address] Dr. Leonides Anders MCHC (RBC) [Mass/Vol] 34.3 g/dL Normal 29.9-35.2 [facility] Comment on above: Performed By: #### C BC #### [facility] [address] [place] [address] Dr. Leonides Anders MCV (RBC) [Entitic vol] 89.3 fL Normal 81.0-99.0 [facility] Comment on above: Performed By: #### C BC #### [facility] [address] [place] [address] Dr. Leonides Anders MONO # 0.4 103/ul Normal 0.3-0.8 [facility] Comment on above: Performed By: #### C BC #### [facility] [address] [place] [address] Dr. Leonides Anders Monocytes/100 WBC (Bld) 6.3 % Normal 1.7-12.0 [facility] Comment on above: Performed By: #### C BC #### [facility] [address] [place] [address] Dr. Leonides Anders NEUT # 4.9 103/ul Normal 1.4-6.5 [facility] Comment on above: Performed By: #### C BC #### [facility] [address] [place] [address] Dr. Leonides Anders Neutrophils/100 WBC (Bld) 71.6 % Normal 43.0-75.0 [facility] Comment on above: Performed By: #### C BC #### [facility] [address] [place] [address] Dr. Leonides Anders Platelet mean volume (Bld) [Entitic vol] 9.1 fL Critically low 9.5-13.5 [facility] Comment on above: Performed By: #### C BC #### [facility] [address] [place] [address] Dr. Leonides Anders PLT 235 103/ul Normal 150-450 [facility] Comment on above: Performed By: #### C BC #### [facility] [address] [place] [address] Dr. Leonides Anders RBC 5.03 106/ul Normal 4.20-5.40 [facility] Comment on above: Performed By: #### C BC #### [facility] [address] [place] [address] Dr. Leonides Andres WBC 6.8 103/ul Normal 4.0-11.0 [facility] Comment on above: Performed By: #### C BC #### [facility] [address] [place] [address] ABD/PELV W CONon 11-04-[address] ABD/PELV W CON EXAMINATION: CT ABD/ [...] MARGARET PARRA Date: 2021-11-03 10:51 Normal [facility] LACTATE/LACTIC ACIDon 2021 Lactate [Moles/Vol] 0.9 mmol/L Normal 0.4-1.9 [facility] Comment on above: Performed By: #### L ACT ####[facility] [address] [place] [address]DrAna Anders LIPASEon 11-03-2021 Lipase [Catalytic activity/Vol] 44.0 U/L Critically low 73.0-393.0 [facility] Comment on above: Performed By: #### L IPA, CMP ####[facility] [address] [place] [address]DrAna Anders PROF 14(COMP METB)on 022 Albumin [Mass/Vol] 4.3 g/dL Normal 3.4-5.0 [facility] Comment on above: Performed By: #### L IPA, CMP ####[facility] [address] [place] [address]DrAna Anders Albumin/Globulin [Mass ratio] 1.3 {ratio} Normal [facility] Comment on above: Performed By: #### L IPA, CMP ####[facility] [address] [place] [address]DrAna Anders ALP [Catalytic activity/Vol] 95 U/L Normal 46-116 [facility] Comment on above: Performed By: #### L IPA, CMP ####[facility] [address] [place] [id number]. Leonides Anders ALT [Catalytic activity/Vol] 20 U/L Normal 14-59 [facility] Comment on above: Performed By: #### L IPA, CMP ####[facility] [address] [place] [id number]. Leonides Anders Anion gap [Moles/Vol] 14.9 mmol/L Normal Th [facility] [place] Comment on above: Performed By: #### L IPA, CMP ####[facility] [address] [place], [place] [address]Dr. Leonides Chago AST [Catalytic activity/Vol] 21 U/L Normal 15-37 [facility] Comment on above: Performed By: #### L IPA, CMP ####[facility] [address] [place], [place] [address]Dr. Leonides Chago Bilirubin [Mass/Vol] 0.5 mg/dL Normal 0.2-1.0 [facility] Comment on above: Performed By: #### L IPA, CMP ####[facility] [address] [place], [place] [address]Dr. Leonides Chago Calcium [Mass/Vol] 9.6 mg/dL Normal 8.5-10.1 [facility] Comment on above: Performed By: #### L IPA, CMP ####[facility] [address] [place], [place] [address]Dr. Leonides Chago Chloride [Moles/Vol] 99 mmol/L Normal 98-107 [facility] Comment on above: Performed By: #### L IPA, CMP ####[facility] [address] [place], [place] [address]Dr. Leonides Chago CO2 [Moles/Vol] 23.1 mmol/L Normal 21.0-32.0 [facility] Comment on above: Performed By: #### L IPA, CMP ####[facility] [address] [place], [place] [address]Dr. Leonides Chago Creatinine [Mass/Vol] 0.69 mg/dL Normal 0.55-1.02 [facility] Comment on above: Performed By: #### L IPA, CMP ####[facility] [address] [place] [address]Dr. Leonides Chago EGFR-AF CAMBODIAN >60 Normal >=60 [facility] Comment on above: Performed By: #### L IPA, CMP ####[facility] [address] [place] [phone]. Leonides Chago EGFR-NON AF CAMBODIAN >60 Normal >=60 [facility] Comment on above: Performed By: #### L IPA, CMP ####[facility] [address] [place] [address]Dr. Leonides Anders Globulin (S) [Mass/Vol] 3.4 g/dL Normal [facility] Comment on above: Performed By: #### L IPA, CMP ####[facility] [address] [place], [place] [address]Dr. Leonides Anders Glucose [Mass/Vol] 121 mg/dL Critically high 74-106 [facility] Comment on above: Performed By: #### L IPA, CMP ####[facility] [address] [place], [place] [address]Dr. Leonides Anders Potassium [Moles/Vol] 4.0 mmol/L Normal 3.5-5.1 [facility] Comment on above: Performed By: #### L IPA, CMP ####[facility] [address] [place], [place] [address]Dr. Leonides Anders Protein [Mass/Vol] 7.7 g/dL Normal 6.4-8.2 [facility] Comment on above: Performed By: #### L IPA, CMP ####[facility] [address] [place] [address]Dr. Leonides Anders Sodium [Moles/Vol] 133 mmol/L Critically low 136-145 Th [facility] [place] Comment on above: Performed By: #### L IPA, CMP ####[facility] [address] [place] [address]Dr. Leonides Anders Urea nitrogen [Mass/Vol] 6.0 mg/dL Critically low 7.0-18.0 [facility] Comment on above: Performed By: #### L IPA, CMP ####[facility] [address] [place], [place] [address]Yf. Leonides Anders Urea nitrogen/Creatinine [Mass ratio] 8.7 mg/mg Normal [facility] Comment on above: Performed By: #### L IPA, CMP ####[facility] [address] [place], [place] [address]Qu. Leonides Anders TROPONIN, HIGH SENSITIVITYon 11-03-2021 HSTROP 6.0 pg/mL Normal 4.0-51.3 [facility] Comment on above: Result Comment: CUT- OFF POINTS HAVE BEEN ESTABLISHED BASED ON THE FOURTH UNIVERSAL DEFINITIONS OF MYOCARDIAL INFARCTION. THE UPPER REFERENCE LIMIT (URL) OF TROPONIN, DEFINED THE 99TH PERCENTILE OF cTnI DISTRIBUTION IN A REFERENCE POPULATION, HAS BEEN CONFIRMED THE DECISION THRESHOLD FOR MT DIAGNOSIS. Performed By: #### H STROPN ####[facility] [address] [place], [place] [address]Gb. Leonides Anders [place] 03-26-2021 CNPN Telephone (HEMAGRE) CANDY BOOTH ([id number]) 1970 F Date Time Provider Department 03/26/21 ARISTIDES SAMUEL HEMJACOBOE During your visit today, we recorded the [...] Date Reviewed: 11/08/2020 Reviewed by: Hai Matute APRN.CHARGER - Fully Assessed Reason for Visit: Rx [...] Encounter Status:Closed by LORI TAMEZ on 08/06/21 [facility] [place] 11-29-2020 SHAUNAN Telephone (Modus eDiscoveryJAMIE) CANDY BOOTH ([id number]) 1970 F Date Time Provider Department 11/29/20 MARIA DJAY ARMANDO During your visit today, we recorded the [...] Date Reviewed: 11/08/2020 Reviewed by: Hai Matute APRN.CHARGER - Fully Assessed Reason for Visit: Lab Orders [1688] Primary Visit Diagnosis: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 CNOVSPon 11-08-2020 OVS Visit (SP) Office (H EMASA) CANDY BOOTH ([id number]) 1970 F Date Time Provider Department 11/08/20 1:30 PM HAI MATUTE During your visit today, we recorded the following information about you: Temperature Pulse Respiration Blood pressure 97.2 degrees 94/minute 16/minute 118/79 Weight Height 92.4 kg 1.702 m Hai Matute APRN.CHARGER 11/08/2020 3:37 PM Signed NAME: Candy Booth CLINIC NO.: [id number] DATE OF SERVICE: November 08, 2020 Referring [...] pill endoscopy. 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 She has primary complaints of fatigue but [...] cap capsule (more content not included)... Normal [facility] Comp Metabolic Panelon 11-08 Albumin [Mass/Vol] 4.4 g/dL Normal 3.9-4.9 [facility] Comment on above: Performed By: #### F ERR, B12, IRON #### [facility] [address] [place] [phone] ALP [Catalytic activity/Vol] 111 U/L Normal 34-123 [facility] Comment on above: Performed By: #### F ERR, B12, IRON #### [place] [address] [place] [phone] ALT [Catalytic activity/Vol] 7 U/L Normal 7-38 [facility] Comment on above: Performed By: #### F ERR, B12, IRON #### [place] [address] [place] [phone] Anion gap [Moles/Vol] 7 mmol/L Low 9-18 [facility] Comment on above: Performed By: #### F ERR, B12, IRON #### [place] [address] [place] [phone] AST [Catalytic activity/Vol] 17 U/L Normal 13-35 [facility] Comment on above: Performed By: #### F ERR, B12, IRON #### [facility] [address] [place] [phone] Bilirubin [Mass/Vol] mg/dL Low 0.2-1.3 [facility] Comment on above: Performed By: #### F ERR, B12, IRON #### [facility] [address] [place] [phone] Calcium [Mass/Vol] 9.7 mg/dL Normal 8.5-10.2 [facility] Comment on above: Performed By: #### F ERR, B12, IRON #### [place] [address] [place] [address] Chloride [Moles/Vol] 100 mmol/L Normal 97-105 [facility] Comment on above: Performed By: #### F ERR B12, IRON #### [facility] [address] [phone] CO2 [Moles/Vol] 26 mmol/L Normal 22-30 [facility] Comment on above: Performed By: #### F ERR B12, IRON #### [facility] [address] [phone] Creatinine [Mass/Vol] 0.63 mg/dL Normal 0.58-0.96 [facility] Comment on above: Performed By: #### F BRODERICK B12, IRON #### [place] [address] [place] [address] eGFR- Amer. >60 Normal [facility] Comment on above: Performed By: #### F BRODERICK B12, IRON #### [facility] [address] [place] [address] eGFR-All Other Races >60 Normal [facility] Comment on above: Result Comment: eGFR [...] reflect actual GFR. Performed By: #### F ERR B12, IRON #### [facility] [address] [place] [phone] Glucose [Mass/Vol] 104 mg/dL High 74-99 [facility] Comment on above: Result Comment: The [place] [employer] (ADA) provides guidance for cutoff [...] Standards of Medical Care in Diabetes 2016, [place] [employer]. Diabetes Care. 2016.39(Suppl 1). Performed By: #### F ERR, B12, IRON #### [facility] [address] [place] [address] Potassium [Moles/Vol] 4.4 mmol/L Normal 3.7-5.1 [facility] Comment on above: Performed By: #### F ERR, B12, IRON #### [place] [address] [place] [address] Protein [Mass/Vol] 6.9 g/dL Normal 6.3-8.0 [facility] Comment on above: Performed By: #### F ERR, B12, IRON #### [place] [address] [place] [address] Sodium [Moles/Vol] 133 mmol/L Low 136-144 [facility] Comment on above: Performed By: #### F ERR, B12, IRON #### [facility] [address] [place] [address] Urea nitrogen [Mass/Vol] 9 mg/dL Normal 7-21 [facility] Comment on above: Performed By: #### F ERR, B12, IRON #### [place] [address] [place] [address] Ferritinon 11-08-2020 Ferritin [Mass/Vol] 13.1 ng/mL Low 14.7-205.1 [facility] Comment on above: Performed By: #### F ERR, B12, IRON #### [place] [address] [place], [place] [phone] Iron and TIBCon 11-08-2020 Iron [Mass/Vol] 29 ug/dL Low 41-186 [facility] Comment on above: Performed By: #### F ERR, B12, IRON #### [facility] [address] [place], [place] [address] TIBC 405 ug/dL High 232-386 [facility] Comment on above: Performed By: #### F ERR, B12, IRON #### [facility] [address] [place], [place] [address] Transferrin Saturatn 7 % Low 15-57 [facility] Comment on above: Performed By: #### F ERR, B12, IRON #### [facility] [address] [place], [place] [address] Remote CBCDIF (for [facility] use o nly)on 11-08-2020 Abs Baso 0.04 k/uL Normal <0.11 [facility] Abs Daviess 0.79 k/uL Normal <0.87 [facility] Abs Neut 8.64 k/uL High 1.45-7.50 [facility] Absolute nRBC <0.01 Normal <0.01 [facility] Basophils/100 WBC (Bld) 0.3 % Normal [facility] DTYPE Auto Diff Normal [facility] Eosinophils (Bld) [#/Vol] 0.11 10*3/uL Normal <0.46 [facility] Eosinophils/100 WBC (Bld) 0.9 % Normal [facility] Erythrocyte distribution width (RBC) [Ratio] 18.0 % High 11.5-15.0 [facility] Hematocrit (Bld) [Volume fraction] 34.8 % Low 36.0-46.0 [facility] Hemoglobin (Bld) [Mass/Vol] 11.2 g/dL Low 11.5-15.5 [facility] Lymphocytes (Bld) [#/Vol] 2.16 10*3/uL Normal 1.00-4.00 [facility] Lymphocytes/100 WBC (Bld) 18.4 % Normal [facility] MCH 25.5 pG Low 26.0-34.0 [facility] MCHC (RBC) [Mass/Vol] 32.2 g/dL Normal 30.5-36.0 [facility] MCV (RBC) [Entitic vol] 79.1 fL Low 80.0-100.0 [facility] Monocytes/100 WBC (Bld) 6.7 % Normal [facility] Neutrophils/100 WBC (Bld) 73.7 % Normal [facility] NRBCs 0.0 /100 WBC Normal 0 [facility] Platelet mean volume (Bld) [Entitic vol] 9.3 fL Normal 9.0-12.7 [facility] Platelets (Bld) [#/Vol] 253 10*3/uL Normal 150-400 [facility] RBC (Bld) [#/Vol] 4.40 10*6/uL Normal 3.90-5.20 [facility] WBC (Bld) [#/Vol] 11.74 10*3/uL High 3.70-11.00 [facility] Vitamin B12on 11-08-2020 Cobalamin (Vitamin B12) [Mass/Vol] 236 pg/mL Normal 232-1245 [facility] Comment on above: Performed By: #### F ERR, B12, IRON #### [facility] [address] [place] [address] CNPIsela 11-02-2020 SHAUNAN Telephone (HEMASA) CANDY BOOTH ([id number]) 1970 F Date Time Provider Department 11/02/20 HAI MATUTE During your visit today, we recorded the following information about you: August11/02/2020 8:07 AM Signed Patient schedule to see [...] Fully Assessed Reason for Visit: Lab Orders [1478] Primary Visit Diagnosis:Megaloblastic anemia due to vitamin [...] Encounter Status:Closed by ANALISA TAI on 11/06/20 [facility] 10-11-2020 [facility] Nurse Visit (NEFTALI) CANDY BOOTH ([id number]) 1970 F Date Time Provider Department 10/11/20 4:00 PM THANH LINDSAY During your visit today, we recorded the following information about you: Analisa Tai 10/11/2020 4:09 PM Signed Patient Identification confirmed: yes. Injection given and documented on JUL per provider order. 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 NURSING COMMUNICATION [[id number]] Order #: [id number]: 1 STANDING [] cyanocobalamin 1,000 mcg injectionDisp: [...] [Z98.84] 10/11/2020 Visit Notes: >> August Zaire FriOctober 11, 2020 4:07 PM Status: Signed Patient Identification confirmed: yes. Injection given and documented on JUL per provider order. Analisa Zaire Prescriptions ordered this encounter Disp Refills Start End CYANOCOBALAMIN (VIT B-12) 1,000 MCG/* 10/11/2020 10/11/2020 Route: INTRAMUSCULA Encounter Status:Closed by ANALISA TAI on 10/11/20 [facility] CNOVSPon 10-11-2020 CNOVSP Visit (SP) Office (H EMASA) CANDY BOOTH ([id number]) 1970 F Date Time Provider Department 10/11/20 3:15 PM JAY AMAYA During your visit today, we recorded the following information about you: Temperature Pulse Respiration Blood pressure 96.9 degrees 120/minute 16/minute 111/60 Weight Height 92.3 kg 1.702 m Jay Amaya MD 10/21/2020 6:59 PM Signed NAME: Candy Booth CLINIC NO.: [id number] DATE OF SERVICE: October 11, 2020 Referring [...] pill endoscopy. 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 Normal [facility] Comp Metabolic Panelon 10-11 Albumin [Mass/Vol] 4.2 g/dL Normal 3.9-4.9 [facility] ALP [Catalytic activity/Vol] 102 U/L Normal 34-123 [facility] ALT [Catalytic activity/Vol] 7 U/L Normal 7-38 [facility] Anion gap [Moles/Vol] 10 mmol/L Normal 9-18 [facility] AST [Catalytic activity/Vol] 19 U/L Normal 13-35 [facility] Bilirubin [Mass/Vol] mg/dL Low 0.2-1.3 [facility] Calcium [Mass/Vol] 9.7 mg/dL Normal 8.5-10.2 [facility] Chloride [Moles/Vol] 98 mmol/L Normal 97-105 [facility] CO2 [Moles/Vol] 22 mmol/L Normal 22-30 [facility] Creatinine [Mass/Vol] 0.58 mg/dL Normal 0.58-0.96 [facility] eGFR- Amer. >60 Normal [facility] eGFR-All Other Races >60 [facility] Comment on above: Result Comment: eGFR (Estimated [...] GFR. Glucose [Mass/Vol] 106 mg/dL High 74-99 [facility] Comment on above: Result Comment: The [place] Diabetes [employer] (ADA) provides guidance for cutoff [...] Standards of Medical Care in Diabetes 2016, [place] [employer]. Diabetes Care. 2016.39(Suppl 1). Potassium [Moles/Vol] 4.2 mmol/L Normal 3.7-5.1 [facility] Protein [Mass/Vol] 7.2 g/dL Normal 6.3-8.0 [facility] Sodium [Moles/Vol] 130 mmol/L Low 136-144 [facility] Urea nitrogen [Mass/Vol] 3 mg/dL Low 7-21 [facility] Ferritinon 10-11-2020 Ferritin [Mass/Vol] 23.6 ng/mL Normal 14.7-205.1 [facility] Comment on above: Performed By: #### I RYAN, B12, SERFOL, FERR #### [facility] [address] [place] [address] Folate, Serumon 10-11-2020 Folate [Mass/Vol] 12.7 ng/mL Normal >4.7 [facility] Comment on above: Performed By: #### I RYAN, B12, SERFOL, FERR #### [facility] [address] [place], [place] [address] Iron and TIBCon 10-11-2020 Iron [Mass/Vol] 22 ug/dL Low 41-186 [facility] Comment on above: Performed By: #### I RYAN, B12, SERFOL, FERR #### [facility] [address] [place] [address] TIBC 386 ug/dL Normal 232-386 [facility] Comment on above: Performed By: #### I RYAN, B12, SERFOL, FERR #### [place] [address] [place] [address] Transferrin Saturatn 6 % Low 15-57 [facility] Comment on above: Performed By: #### I RYAN, B12, SERFOL, FERR #### [place] [address] [place] [address] LDon 10-11-2020 LD 182 U/L Normal 135-214 [facility] Remote CBCDIF (for [facility] use o nly)on 10-11-2020 Abs Baso 0.05 k/uL Normal <0.11 [facility] Abs Daviess 0.67 k/uL Normal <0.87 [facility] Abs Neut 6.73 k/uL Normal 1.45-7.50 [facility] Absolute nRBC <0.01 Normal <0.01 [facility] Basophils/100 WBC (Bld) 0.5 % Normal [facility] DTYPE Auto Diff Normal [facility] Eosinophils (Bld) [#/Vol] 0.13 10*3/uL Normal <0.46 [facility] Eosinophils/100 WBC (Bld) 1.4 % Normal [facility] Erythrocyte distribution width (RBC) [Ratio] 18.4 % High 11.5-15.0 [facility] Hematocrit (Bld) [Volume fraction] 34.7 % Low 36.0-46.0 [facility] Hemoglobin (Bld) [Mass/Vol] 11.0 g/dL Low 11.5-15.5 [facility] Lymphocytes (Bld) [#/Vol] 2.00 10*3/uL Normal 1.00-4.00 [facility] Lymphocytes/100 WBC (Bld) 20.9 % Normal [facility] MCH 25.7 pG Low 26.0-34.0 [facility] MCHC (RBC) [Mass/Vol] 31.7 g/dL Normal 30.5-36.0 [facility] MCV (RBC) [Entitic vol] 81.1 fL Normal 80.0-100.0 [facility] Monocytes/100 WBC (Bld) 7.0 % Normal [facility] Neutrophils/100 WBC (Bld) 70.2 % Normal [facility] NRBCs 0.0 /100 WBC Normal 0 [facility] Platelet mean volume (Bld) [Entitic vol] 9.7 fL Normal 9.0-12.7 [facility] Platelets (Bld) [#/Vol] 338 10*3/uL Normal 150-400 [facility] RBC (Bld) [#/Vol] 4.28 10*6/uL Normal 3.90-5.20 [facility] WBC (Bld) [#/Vol] 9.58 10*3/uL Normal 3.70-11.00 [facility] Vitamin B12on 10-11-2020 Cobalamin (Vitamin B12) [Mass/Vol] 188 pg/mL Low 232-1245 [facility] Comment on above: Performed By: #### I RYAN, B12, SERFOL, FERR #### [facility] [address] [address] FLUORO FOR SURGICAL PROCEDUR ESon 02-09-2018 FLUORO [...] by:FANG Angeligned by:Callum Salinas MD02/09/18inal result Normal [facility] Surgical Specimenon 02-10-20 Surgical Specimen Invalid Interpretation Code [facility] Comment on above: Result Comment: [id number] [phone] SURGICAL PATHOLOGY REPORTPatient Name: CANDY BOOTH Accession No: [id number] Age Sex: 1970 Location: DIS ORPOOLNONAccount No: [id number] Collected: 02/09/2018Med Rec No: [id number] Received: 02/09/2018Attend Phys: PATRICK REJI Completed: 02/11/2018Perform Phys: PATRICK YOOFINAL DIAGNOSIS:DISC TISSUE, L4-5, LEFT-DEGENERATED CARTILAGE. SIVES/SIVESCLINICAL INFORMATION:L4-5 left HNP. Disk.SPECIMEN:DiscGROSS DESCRIPTION:Specimen container is labeled with the patient's name and designated spine . In formalin are multiple irregular shaggy fragments of villarreal andpink soft and firm tissue measuring in aggregate 3 x 2.5 x 0.5 cm.Majority of tissue is submitted in two cassettes. PUNEET/FLOYDT: [id number] ROMERO M.D. 02/11/2018 Electronically signed out by Page 1 of 1 Basic Metabolic Panelon 01-24 Anion gap 3 molar conc 12 mmol/L Normal 7-13 [facility] Calcium mass conc 9.2 mg/dL Normal 8.6-10.2 [facility] Chloride molar conc 102 mmol/L Normal 98-107 [facility] CO2 molar conc 25 mmol/L Normal 22-29 [facility] Creatinine mass conc 0.42 mg/dL Low 0.50-0.90 [facility] GFR/1.73 sq M predicted among blacks MDRD vol rate/area (S/P/Bld) mL/min/{1.73_m2} Normal >60 [facility] Comment on above: Result Comment: >60 mL/min/1.73m2 EGFR, calc. for ages 18 and older using theMDRD formula (not corrected for weight), is valid for stablerenal function. GFR/1.73 sq M.predicted MDRD vol rate/area mL/min/{1.73_m2} Normal >60 [facility] Comment on above: Result Comment: >60 mL/min/1.73m2 EGFR, calc. for ages 18 and older using theMDRD formula (not corrected for weight), is valid for stablerenal function. Glucose mass conc 82 mg/dL Normal 74-109 [facility] Potassium molar conc 4.2 mmol/L Normal 3.5-5.1 [facility] Sodium molar conc 139 mmol/L Normal 132-144 [facility] Urea nitrogen mass conc 6 mg/dL Normal 6-20 [facility] CBC With Platelet No Differe ntialon 02-06-2018 Erythrocyte distribution width Auto Ratio (RBC) 20.2 % Critically high 11.5-14.5 [facility] Hematocrit Auto Volume Fraction (Bld) 36.3 % Low 37.0-47.0 [facility] Hemoglobin mass conc (Bld) 11.5 g/dL Low 12.0-16.0 [facility] MCH Auto Entitic mass (RBC) 24.1 pg Low 27.0-31.3 [facility] MCHC Auto mass conc (RBC) 31.7 % Low 33.0-37.0 [facility] MCV Auto Entitic volume (RBC) 76.0 fL Low 82.0-100.0 [facility] Platelets Auto #/vol (Bld) 203 10*3/uL Normal 130-400 [facility] RBC Auto #/vol (Bld) 4.78 10*6/uL Normal 4.20-5.40 [facility] WBC Auto #/vol (Bld) 4.9 10*3/uL Normal 4.8-10.8 [facility] Partial Thromboplastin Timeo n 02-06-2018 aPTT Coag time (Bld) 26.6 s Normal 21.6-35.4 [facility] Comment on above: Result Comment: Hepa rin Therapeutic Range: 38.8 - 54.6 seconds. Prothrombin Timeon 09-14-201 8 INR Coag RelTime (PPP) 0.9 {INR} Normal [facility] Comment on above: Result Comment: Madhu mmended [...] Coag time (PPP) 9.4 s Low 9.6-12.3 [facility] Type and Screen Capture 3 sc rn cellon 02-06-2018 Bilirubin mass conc PATIENT: EMMY Acuña LOC: [facility] BILL# : [id number] : 1970 SEX: FORDERED BY: EMILY LUCERO ORDERED : 02/06/2018 07:42 COLLECTED: 02/06/2018 08:25ORDER : [id number] RECEIVED : 02/06/2018 08:25 --TEST NAME RESULT UNITS RANGES ABN FL STABORH Capture O NEG FAntibody 3 Cell Scrn Captu NEG F Normal [facility] Urinalysis, reflex to cultur constantin 02-06-2018 Bilirubin Ql (U) Negative Normal Negative [facility] Clarity Nom (U) Clear Normal Clear [facility] Color Nom (U) Yellow Normal Straw/[place] [facility] Glucose Ql (U) Negative Normal Negative [facility] Hemoglobin Test strip Ql (U) Negative Normal Negative [facility] Ketones Ql (U) Negative Normal Negative [facility] Leukocyte esterase Test strip Ql (U) Negative Normal Negative [facility] Nitrite Test strip Ql (U) Negative Normal Negative [facility] pH Test strip (U) 6.0 [pH] Normal 5.0-9.0 [facility] Protein Test strip Ql (U) Negative Normal Negative [facility] Specific gravity Relative Density (U) 1.009 Normal 1.005-1.03 [facility] Urine Reflexed to Culture Not Indicated Normal [facility] Urobilinogen Test strip Qn (U) 0.2 {[place]'U}/dL Normal < 2.0 [facility] Hgb/Hcton 11-17-2017 Hematocrit (HCT) 35.8 % Low 36.3-47.1 [facility] Comment on above: Performed By: #### C DP, PT, LACWB, LIP, LIVP, FEBC, FERI ####[facility] [id number] Hemoglobin mass conc (Bld) 10.6 g/dL Low 11.9-15.1 [facility] Comment on above: Performed By: #### C DP, PT, LACWB, LIP, LIVP, FEBC, FERI ####[facility] [id number] [place], [place] [id number] Progress Noteon 11-17-2017 HIM IP Note OR Tankage Grinder Operator Normal [facility] Basic Metab w/rfx MGon 10-20 (cont.) Normal [facility] Comment on above: Result Comment: Aver age GFR for 40-49 years old: 99 mL/min/1.73sq mChronic Kidney Disease: <60 mL/min/1.73sq mKidney failure: <15 mL/min/1.73sq meGFR calculated using average adult body mass. Additional eGFR calculator available at:http://www.[employer].com/multiple_crcl_[email or web address] [facility] [address] [place] [address] Performed By: #### C DP, PT, LACWB, LIP, LIVP, FEBC, FERI ####[address] [address] Anion gap 12 mmol/L Normal 9-17 [facility] Comment on above: Performed By: #### C DP, PT, LACWB, LIP, LIVP, FEBC, FERI ####[address] [address] Calcium 8.3 mg/dL Low 8.6-10.4 [facility] Comment on above: Performed By: #### C DP, PT, LACWB, LIP, LIVP, FEBC, FERI ####[address] [address] Chloride 108 mmol/L High 98-107 [facility] Comment on above: Performed By: #### C DP, PT, LACWB, LIP, LIVP, FEBC, FERI ####[address] [address] CO2 23 mmol/L Normal 20-31 [facility] Comment on above: Performed By: #### C DP, PT, LACWB, LIP, LIVP, FEBC, FERI ####[address] [address] Creatinine 0.35 mg/dL Low 0.50-0.90 [facility] Comment on above: Performed By: #### C DP, PT, LACWB, LIP, LIVP, FEBC, FERI ####[address] [address] eGFR (non-black) mL/min/{1.73_m2} Normal >60 [facility] Comment on above: Performed By: #### C DP, PT, LACWB, LIP, LIVP, FEBC, FERI ####[address] [address] Glucose mass conc 79 mg/dL Normal 70-99 [facility] Comment on above: Performed By: #### C DP, PT, LACWB, LIP, LIVP, FEBC, FERI ####[address] [address] Potassium molar conc 3.6 mmol/L Low 3.7-5.3 [facility] Comment on above: Performed By: #### C DP, PT, LACWB, LIP, LIVP, FEBC, FERI ####[address] [address] Sodium 143 mmol/L Normal 135-144 [facility] Comment on above: Performed By: #### C DP, PT, LACWB, LIP, LIVP, FEBC, FERI ####[address] [address] Urea nitrogen 3 mg/dL Low 6-20 [facility] Comment on above: Performed By: #### C DP, PT, LACWB, LIP, LIVP, FEBC, FERI ####[address] [address] BUN/CRE Ratio NOT REPORTED Normal 9-20 [facility] Comment on above: Performed By: #### C DP, PT, LACWB, LIP, LIVP, FEBC, FERI ####[address] [address] Staging: NOT REPORTED Normal [facility] Comment on above: Performed By: #### C DP, PT, LACWB, LIP, LIVP, FEBC, FERI ####[address] [address] CBCon 10-20-2017 Erythrocyte distribution width Auto Ratio (RBC) 17.1 % High 11.8-14.4 [facility] Comment on above: Performed By: #### C DP, PT, LACWB, LIP, LIVP, FEBC, FERI ####[address] [address] Erythrocytes (RBC) 0.0 per 100 WBC Normal 0.0 [facility] Comment on above: Result Comment: [address] [address] Performed By: #### C DP, PT, LACWB, LIP, LIVP, FEBC, FERI ####[address] [address] Erythrocytes (RBC) 3.43 10*6/uL Low 3.95-5.11 [facility] Comment on above: Performed By: #### C DP, PT, LACWB, LIP, LIVP, FEBC, FERI ####[address] [address] Hematocrit (HCT) 28.1 % Low 36.3-47.1 [facility] Comment on above: Performed By: #### C DP, PT, LACWB, LIP, LIVP, FEBC, FERI ####[address] [address] Hemoglobin mass conc (Bld) 8.8 g/dL Low 11.9-15.1 [facility] Comment on above: Performed By: #### C DP, PT, LACWB, LIP, LIVP, FEBC, FERI ####[address] [address] MCH 25.7 pg Normal 25.2-33.5 [facility] Comment on above: Performed By: #### C DP, PT, LACWB, LIP, LIVP, FEBC, FERI ####[address] [address] MCHC mass conc (RBC) 31.3 g/dL Normal 28.4-34.8 [facility] Comment on above: Performed By: #### C DP, PT, LACWB, LIP, LIVP, FEBC, FERI ####[address] [address] MCV 81.9 fL Low 82.6-102.9 [facility] Comment on above: Performed By: #### C DP, PT, LACWB, LIP, LIVP, FEBC, FERI ####[address] [address] Platelet mean volume (PMV) 10.3 fL Normal 8.1-13.5 [facility] Comment on above: Performed By: #### C DP, PT, LACWB, LIP, LIVP, FEBC, FERI ####[address] [address] Platelets 224 10*3/uL Normal 138-453 [facility] Comment on above: Performed By: #### C DP, PT, LACWB, LIP, LIVP, FEBC, FERI ####[address] [address] WBC (Leukocytes) 6.0 10*3/uL Normal 3.5-11.3 [facility] Comment on above: Performed By: #### C DP, PT, LACWB, LIP, LIVP, FEBC, FERI ####[address] [address] Calcium, Ionicon 10-20-2017 Calcium 1.22 mmol/L Normal 1.13-1.33 [facility] Comment on above: Result Comment: [facility] [address] [place] [address] Performed By: #### C DP, PT, LACWB, LIP, LIVP, FEBC, FERI ####[address] [address] Hgb/Hcton 10-20-2017 Hematocrit (HCT) 30.3 % Low 36.3-47.1 [facility] Comment on above: Result Comment: [facility] [address] [place] [address] Performed By: #### C DP, PT, LACWB, LIP, LIVP, FEBC, FERI ####[address] [address] Hemoglobin mass conc (Bld) 9.2 g/dL Low 11.9-15.1 [facility] Comment on above: Performed By: #### C DP, PT, LACWB, LIP, LIVP, FEBC, FERI ####[address] [address] Hematocrit (HCT) 25.6 % Low 36.3-47.1 [facility] Comment on above: Result Comment: [facility] [address] [place] [address] Performed By: #### C DP, PT, LACWB, LIP, LIVP, FEBC, FERI ####[address] [address] Hemoglobin mass conc (Bld) 8.0 g/dL Low 11.9-15.1 [facility] Comment on above: Performed By: #### C DP, PT, LACWB, LIP, LIVP, FEBC, FERI ####[address] [address] Op Noteon 10-20-2017 HIM IP Note OR Tankage Grinder Operator Normal [facility] PTon 10-20-2017 INR Coag RelTime (PPP) 0.9 {INR} Normal [facility] Comment on above: Result Comment: Ther apeutic Range: Moderate Anticoagulant Intensity: INR = 2.0-3.0 High Anticoagulant Intensity: INR = 2.5-3.[address] [address] Performed By: #### C DP, PT, LACWB, LIP, LIVP, FEBC, FERI ####[address] [address] Prothrombin time (PT) Coag time (PPP) 10.0 s Normal 9.0-12.0 [facility] Comment on above: Performed By: #### C DP, PT, LACWB, LIP, LIVP, FEBC, FERI ####[address] [address] Plan of Careon 10-20-2017 HIM IP Note OR Tankage Grinder Operator Normal [facility] Progress Noteon 10-20-2017 HIM IP Note OR Tankage Grinder Operator Normal [facility] HIM IP Note OR Tankage Grinder Operator Normal [facility] HIM IP Note OR Tankage Grinder Operator Normal [facility] Basic Metabolic Profon 10-19 (cont.) Normal [facility] Comment on above: Result Comment: Aver age GFR for 40-49 years old: 99 mL/min/1.73sq mChronic Kidney Disease: <60 mL/min/1.73sq mKidney failure: <15 mL/min/1.73sq meGFR calculated using average adult body mass. Additional eGFR calculator available at:http://www.[email or web address]/multiple_crcl_2012.htm[address] [address] Performed By: #### C DP, PT, LACWB, LIP, LIVP, FEBC, FERI ####[address] [address] Anion gap 9 mmol/L Normal 9-17 [facility] Comment on above: Performed By: #### C DP, PT, LACWB, LIP, LIVP, FEBC, FERI ####[address] [address] Calcium 7.3 mg/dL Low 8.6-10.4 [facility] Comment on above: Performed By: #### C DP, PT, LACWB, LIP, LIVP, FEBC, FERI ####[address] [address] Chloride 114 mmol/L High 98-107 [facility] Comment on above: Performed By: #### C DP, PT, LACWB, LIP, LIVP, FEBC, FERI ####[address] [address] CO2 21 mmol/L Normal 20-31 [facility] Comment on above: Performed By: #### C DP, PT, LACWB, LIP, LIVP, FEBC, FERI ####[address] [address] Creatinine 0.36 mg/dL Low 0.50-0.90 [facility] Comment on above: Performed By: #### C DP, PT, LACWB, LIP, LIVP, FEBC, FERI ####[address] [address] eGFR (non-black) mL/min/{1.73_m2} Normal >60 [facility] Comment on above: Performed By: #### C DP, PT, LACWB, LIP, LIVP, FEBC, FERI ####[address] [address] Glucose mass conc 78 mg/dL Normal 70-99 [facility] Comment on above: Performed By: #### C DP, PT, LACWB, LIP, LIVP, FEBC, FERI ####[address] [place] [address] Potassium molar conc 3.6 mmol/L Low 3.7-5.3 [facility] Comment on above: Performed By: #### C DP, PT, LACWB, LIP, LIVP, FEBC, FERI ####[address] [address] Sodium 144 mmol/L Normal 135-144 [facility] Comment on above: Performed By: #### C DP, PT, LACWB, LIP, LIVP, FEBC, FERI ####[address] [address] Urea nitrogen 8 mg/dL Normal -20 [facility] Comment on above: Performed By: #### C DP, PT, LACWB, LIP, LIVP, FEBC, FERI ####[address] [address] BUN/CRE Ratio NOT REPORTED Normal -20 [facility] Comment on above: Performed By: #### C DP, PT, LACWB, LIP, LIVP, FEBC, FERI ####[address] [address] Staging: NOT REPORTED Normal [facility] Comment on above: Performed By: #### C DP, PT, LACWB, LIP, LIVP, FEBC, FERI ####[address] [address] Consulton 10-19-2017 HIM IP Note OR Tankage Grinder Operator Normal [facility] Hgb/Hcton 10-19-2017 Hematocrit (HCT) 29.1 % Low 36.3-47.1 [facility] Comment on above: Result Comment: [id number] [place] [address] Performed By: #### C DP, PT, LACWB, LIP, LIVP, FEBC, FERI ####[address] [address] Hemoglobin mass conc (Bld) 9.0 g/dL Low 11.9-15.1 [facility] Comment on above: Performed By: #### C DP, PT, LACWB, LIP, LIVP, FEBC, FERI ####[address] [address] Hematocrit (HCT) 25.0 % Low 36.3-47.1 [facility] Comment on above: Result Comment: [facility] [address] [place] [address] Performed By: #### C DP, PT, LACWB, LIP, LIVP, FEBC, FERI ####[address] [address] Hemoglobin mass conc (Bld) 7.9 g/dL Low 11.9-15.1 [facility] Comment on above: Performed By: #### C DP, PT, LACWB, LIP, LIVP, FEBC, FERI ####[address] [address] Hematocrit (HCT) 27.3 % Low 36.3-47.1 [facility] Comment on above: Result Comment: [facility] [address] [place] [address] Performed By: #### C DP, PT, LACWB, LIP, LIVP, FEBC, FERI ####[address] [address] Hemoglobin mass conc (Bld) 8.4 g/dL Low 11.9-15.1 [facility] Comment on above: Performed By: #### C DP, PT, LACWB, LIP, LIVP, FEBC, FERI ####[address] [place] [address] Hematocrit (HCT) 26.4 % Low 36.3-47.1 [facility] Comment on above: Result Comment: [facility] [address] [place] [address] Performed By: #### C DP, PT, LACWB, LIP, LIVP, FEBC, FERI ####[address] [address] Hemoglobin mass conc (Bld) 8.0 g/dL Low 11.9-15.1 [facility] Comment on above: Performed By: #### C DP, PT, LACWB, LIP, LIVP, FEBC, FERI ####[address] [address] Hematocrit (HCT) 19.8 % Low 36.3-47.1 [facility] Comment on above: Result Comment: [facility] [address] [place] [address] Performed By: #### C DP, PT, LACWB, LIP, LIVP, FEBC, FERI ####[address] [address] Hemoglobin mass conc (Bld) 5.9 g/dL Critically low 11.9-15.1 [facility] Comment on above: Performed By: #### C DP, PT, LACWB, LIP, LIVP, FEBC, FERI ####[address] [address] History and Physicalon 10-19 HIM IP Note OR Tankage Grinder Operator Normal [facility] HIM IP Note OR Tankage Grinder Operator Normal [facility] HIM IP Note OR Tankage Grinder Operator Normal [facility] K (Potassium)on 10-19-2017 Potassium molar conc 3.5 mmol/L Low 3.7-5.3 [facility] Comment on above: Result Comment: [facility] [address] [place] [address] Performed By: #### C DP, PT, LACWB, LIP, LIVP, FEBC, FERI ####[address] [place], [place] [id number] MRSA, DNA, Nasalon 8 MRSA, DNA, Nasal NEGATIVE: MRSA DNA n ot detected by nucleic acid amplification. Normal NMRSAA [facility] Comment on above: Result Comment: Resu lts should be used as an adjunct to nosocomial control efforts to identify patients needing enhanced precautions.The test is not intended to identify patients with staphylococcal infections. Results should not be used to guide or monitor treatment for MRSA infections.[facility] [address] [place] [address] Performed By: #### C DP, PT, LACWB, LIP, LIVP, FEBC, FERI ####[address] [address] Op Noteon 10-19-2017 HIM IP Note OR Tankage Grinder Operator Normal [facility] Plan of Careon 10-19-2017 HIM IP Note OR Tankage Grinder Operator Normal [facility] HIM IP Note OR Tankage Grinder Operator Normal [facility] HIM IP Note OR Tankage Grinder Operator Normal [facility] HIM IP Note OR Tankage Grinder Operator Normal [facility] HIM IP Note OR Tankage Grinder Operator Normal [facility] Progress Noteon 10-19-2017 HIM IP Note OR Tankage Grinder Operator Normal [facility] HIM IP Note OR Tankage Grinder Operator Normal [facility] HIM IP Note OR Tankage Grinder Operator Normal [facility] HIM IP Note OR Tankage Grinder Operator Normal [facility] Troponinon 10-19-2017 Troponin I.cardiac mass conc Normal [facility] Comment on above: Result Comment: Refe rence Range: <0.03 Within reference range. 0.03-0.09 Possible myocardial damage.Repeat at appropriate intervals to rule out chronic elevation. >= 0.10 Indicative of myocardial damage.Patients with high levels of Biotin oral intake (i.e >5mg/day) may have falsely decreased Troponin T levels. Samples collected within 8 hours of biotin intake may require additional information for diagnosis.[address] [address] Performed By: #### C DP, PT, LACWB, LIP, LIVP, FEBC, FERI ####[address] [address] Troponin T.cardiac mass conc ug/L Normal <0.03 [facility] Comment on above: Result Comment: Trop onin T results cannot be compared to Troponin-I results. Performed By: #### C DP, PT, LACWB, LIP, LIVP, FEBC, FERI ####[address] [address] Type + Screenon 10-19-2017 Type + Screen Sample Expiration 10/21/2017 Arm Band Number [id number] ABO/Rh(D) O NEGATIVE Antibody Screen NEGATIVE Unit Number [id number] Blood Component Type Leukocyte Reduced Red Cell Unit Division 00 Status of Unit TRANSFUSED Transfusion Status OK TO TRANSFUSE Crossmatch Result COMPATIBLE[address] [address] Unit Number [id number] Blood Component Type Leukocyte Reduced Red Cell Unit Division 00 Status of Unit TRANSFUSED Transfusion Status OK TO TRANSFUSE Crossmatch Result COMPATIBLE Normal [facility] Comment on above: Performed By: #### T YS ####[address] [address] XR CHEST PORTABLEon 10-20-19 18 XR CHEST [...] by:FANG Marcelinoigned by:Ibrahima Blanco MD10/18/17inal result Normal [facility] Blood Bank Specimenon 2017 Blood Bank Specimen NOT REPORTED Normal [facility] CBC with Diffon 10-18-2017 Abs. Basophil 0.03 k/uL Normal 0.00-0.20 [facility] Comment on above: Performed By: #### C DP, PT, LACWB, LIP, LIVP, FEBC, FERI ####[place] [address] Abs.Neutrophil (Seg) 5.42 k/uL Normal 1.50-8.10 [facility] Comment on above: Performed By: #### C DP, PT, LACWB, LIP, LIVP, FEBC, FERI ####[address] [address] Basophils/100 WBC Auto (Bld) 0 % Normal 0-2 [facility] Comment on above: Performed By: #### C DP, PT, LACWB, LIP, LIVP, FEBC, FERI ####[address] [address] Eosinophils 10*3/uL Normal 0.00-0.44 [facility] Comment on above: Performed By: #### C DP, PT, LACWB, LIP, LIVP, FEBC, FERI ####[address] [address] Eosinophils/100 leukocytes 0 % Low 1-4 [facility] Comment on above: Performed By: #### C DP, PT, LACWB, LIP, LIVP, FEBC, FERI ####[address] [address] Erythrocyte distribution width Auto Ratio (RBC) 17.1 % High 11.8-14.4 [facility] Comment on above: Performed By: #### C DP, PT, LACWB, LIP, LIVP, FEBC, FERI ####[address] [address] Erythrocytes (RBC) 2.77 10*6/uL Low 3.95-5.11 [facility] Comment on above: Performed By: #### C DP, PT, LACWB, LIP, LIVP, FEBC, FERI ####[address] [address] Erythrocytes (RBC) 0.0 per 100 WBC Normal 0.0 [facility] Comment on above: Performed By: #### C DP, PT, LACWB, LIP, LIVP, FEBC, FERI ####[address] [address] Granulocytes/100 WBC (Bld) 0.03 k/uL Normal 0.00-0.30 [facility] Comment on above: Result Comment: [address] [place] [address] Performed By: #### C DP, PT, LACWB, LIP, LIVP, FEBC, FERI ####[address] [address] Hematocrit (HCT) 23.4 % Low 36.3-47.1 [facility] Comment on above: Performed By: #### C DP, PT, LACWB, LIP, LIVP, FEBC, FERI ####[address] [address] Hemoglobin mass conc (Bld) 7.1 g/dL Low 11.9-15.1 [facility] Comment on above: Performed By: #### C DP, PT, LACWB, LIP, LIVP, FEBC, FERI ####[address] [address] Immature granulocytes #/vol (Bld) 0 % Normal 0 [facility] Comment on above: Performed By: #### C DP, PT, LACWB, LIP, LIVP, FEBC, FERI ####[address] [address] Lymphocytes 1.27 10*3/uL Normal 1.10-3.70 [facility] Comment on above: Performed By: #### C DP, PT, LACWB, LIP, LIVP, FEBC, FERI ####[address] [address] Lymphocytes/100 leukocytes 18 % Low 24-43 [facility] Comment on above: Performed By: #### C DP, PT, LACWB, LIP, LIVP, FEBC, FERI ####[address] [address] MCH 25.6 pg Normal 25.2-33.5 [facility] Comment on above: Performed By: #### C DP, PT, LACWB, LIP, LIVP, FEBC, FERI ####[address] [address] MCHC mass conc (RBC) 30.3 g/dL Normal 28.4-34.8 [facility] Comment on above: Performed By: #### C DP, PT, LACWB, LIP, LIVP, FEBC, FERI ####[address] [address] MCV 84.5 fL Normal 82.6-102.9 [facility] Comment on above: Performed By: #### C DP, PT, LACWB, LIP, LIVP, FEBC, FERI ####[address] [address] Monocytes 0.35 10*3/uL Normal 0.10-1.20 [facility] Comment on above: Performed By: #### C DP, PT, LACWB, LIP, LIVP, FEBC, FERI ####[address] [address] Monocytes/100 leukocytes 5 % Normal 3-12 [facility] Comment on above: Performed By: #### C DP, PT, LACWB, LIP, LIVP, FEBC, FERI ####[address] [address] Neutrophil (Seg) 76 % High 36-65 [facility] Comment on above: Performed By: #### C DP, PT, LACWB, LIP, LIVP, FEBC, FERI ####[address] [address] Platelet mean volume (PMV) 10.5 fL Normal 8.1-13.5 [facility] Comment on above: Performed By: #### C DP, PT, LACWB, LIP, LIVP, FEBC, FERI ####[address] [address] Platelets 212 10*3/uL Normal 138-453 [facility] Comment on above: Performed By: #### C DP, PT, LACWB, LIP, LIVP, FEBC, FERI ####[address] [address] WBC (Leukocytes) 7.1 10*3/uL Normal 3.5-11.3 [facility] Comment on above: Performed By: #### C DP, PT, LACWB, LIP, LIVP, FEBC, FERI ####[address] [address] Erythrocyte morphology ANISOCYTOSIS PRESENT Normal [facility] Comment on above: Performed By: #### C DP, PT, LACWB, LIP, LIVP, FEBC, FERI ####[address] [address] Auto Diff Performed NOT REPORTED Normal [facility] Comment on above: Performed By: #### C DP, PT, LACWB, LIP, LIVP, FEBC, FERI ####[address] [address] Platelets NOT REPORTED Normal [facility] Comment on above: Performed By: #### C DP, PT, LACWB, LIP, LIVP, FEBC, FERI ####[address] [address] WBC Morphology NOT REPORTED Normal [facility] Comment on above: Performed By: #### C DP, PT, LACWB, LIP, LIVP, FEBC, FERI ####[address] [address] Ferritinon 10-18-2017 Ferritin 4 ug/L Low 13-150 [facility] Comment on above: Result Comment: [address] [address] Performed By: #### C DP, PT, LACWB, LIP, LIVP, FEBC, FERI ####[address] [address] History and Physicalon 10-18 HIM IP Note OR Tankage Grinder Operator Normal [facility] Iron Binding Cap.on 10-19-19 18 % Fe Saturation 24 % Normal 20-55 [facility] Comment on above: Performed By: #### C DP, PT, LACWB, LIP, LIVP, FEBC, FERI ####[address] [address] Iron 70 ug/dL Normal 37-145 [facility] Comment on above: Performed By: #### C DP, PT, LACWB, LIP, LIVP, FEBC, FERI ####[address] [address] Total Fe Binding Cap 296 ug/dL Normal 250-450 [facility] Comment on above: Performed By: #### C DP, PT, LACWB, LIP, LIVP, FEBC, FERI ####[address] [address] Unbound Fe Bind Cap 226 ug/dL Normal 112-347 [facility] Comment on above: Result Comment: [address] [address] Performed By: #### C DP, PT, LACWB, LIP, LIVP, FEBC, FERI ####[address] [address] Lactic Acid,Whole Blon 10-18 Lactic Acid,Whole Bl 0.7 mmol/L Normal 0.7-2.1 [facility] Comment on above: Result Comment: [facility] [address] [place] [address] Performed By: #### C DP, PT, LACWB, LIP, LIVP, FEBC, FERI ####[address] [address] Lipaseon 10-18-2017 Lipase 23 U/L Normal 13-60 [facility] Comment on above: Result Comment: [facility] [address] [place] [address] Performed By: #### C DP, PT, LACWB, LIP, LIVP, FEBC, FERI ####[address] [address] Liver Profileon 10-18-2017 Alanine aminotransferase (ALT) U/L Low 5-33 [facility] Comment on above: Performed By: #### C DP, PT, LACWB, LIP, LIVP, FEBC, FERI ####[address] [address] Albumin 2.9 g/dL Low 3.5-5.2 [facility] Comment on above: Performed By: #### C DP, PT, LACWB, LIP, LIVP, FEBC, FERI ####[address] [address] Albumin/Globulin Ratio 1.6 {ratio} Normal 1.0-2.5 [facility] Comment on above: Result Comment: [address] [address] Performed By: #### C DP, PT, LACWB, LIP, LIVP, FEBC, FERI ####[address] [address] Alkaline Phos 60 U/L Normal 35-104 [facility] Comment on above: Performed By: #### C DP, PT, LACWB, LIP, LIVP, FEBC, FERI ####[address] [address] Aspartate aminotransferase (AST) 10 U/L Normal <32 [facility] Comment on above: Performed By: #### C DP, PT, LACWB, LIP, LIVP, FEBC, FERI ####[address] [address] Bilirubin (direct) mg/dL Normal <0.31 [facility] Comment on above: Performed By: #### C DP, PT, LACWB, LIP, LIVP, FEBC, FERI ####[address] [address] Bilirubin Ql (U) 0.30 mg/dL Normal 0.3-1.2 [facility] Comment on above: Performed By: #### C DP, PT, LACWB, LIP, LIVP, FEBC, FERI ####[address] [address] Bilirubin, Indirect CANNOT BE CALCULATED Normal 0.00-1 .00 [facility] Comment on above: Performed By: #### C DP, PT, LACWB, LIP, LIVP, FEBC, FERI ####[address] [address] Protein 4.7 g/dL Low 6.4-8.3 [facility] Comment on above: Performed By: #### C DP, PT, LACWB, LIP, LIVP, FEBC, FERI ####[address] [address] Globulin NOT REPORTED Normal 1.5-3.8 [facility] Comment on above: Performed By: #### C DP, PT, LACWB, LIP, LIVP, FEBC, FERI ####[address] [address] MRSA, DNA, Nasalon 8 Specimen Description .NASAL SWAB Normal [facility] Comment on above: Performed By: #### C DP, PT, LACWB, LIP, LIVP, FEBC, FERI ####[address] [address] PTon 10-18-2017 INR Coag RelTime (PPP) 1.0 {INR} Normal [facility] Comment on above: Result Comment: Ther apeutic Range: Moderate Anticoagulant Intensity: INR = 2.0-3.0 High Anticoagulant Intensity: INR = 2.5-3.[address] [address] Performed By: #### C DP, PT, LACWB, LIP, LIVP, FEBC, FERI ####[address] [address] Prothrombin time (PT) Coag time (PPP) 10.6 s Normal 9.0-12.0 [facility] Comment on above: Performed By: #### C DP, PT, LACWB, LIP, LIVP, FEBC, FERI ####[facility] [place] [address] Vital Signs Date Time Vital Sign Value Performing Clinician Facility 12-18-2023 13:49-0400 Body height 167.64 cm [facility] 12-18-2023 13:49-0400 Body mass index (BMI) [Ratio] 29.3 kg/m2 [facility] 12-18-2023 13:49-0400 Body weight 82.55 kg [facility] 12-18-2023 13:49-0400 Diastolic blood pressure 61 mm[Hg] [facility] 12-18-2023 13:49-0400 Heart rate 128 /min [facility] 12-18-2023 13:49-0400 Systolic blood pressure 85 mm[Hg] [facility] 12-11-2023 16:13-0400 Body height 167.64 cm [facility] 12-11-2023 16:13-0400 Body mass index (BMI) [Ratio] 32 kg/m2 [facility] 12-11-2023 16:13-0400 Body temperature 97 [degF] [facility] 12-11-2023 16:13-0400 Body weight 90 kg [facility] 12-11-2023 16:13-0400 Diastolic blood pressure 78 mm[Hg] [facility] 12-11-2023 16:13-0400 Heart rate 117 /min [facility] 12-11-2023 16:13-0400 Systolic blood pressure 123 mm[Hg] [facility] 10-14-2023 16:06-0400 Body temperature 97.9 [degF] [facility] 10-14-2023 16:06-0400 Heart rate 116 /min [facility] 10-14-2023 16:06-0400 SaO2% (BldA) [Mass fraction] 89 % [facility] 09-22-2023 14:17-0400 Body height 167.64 cm [facility] 09-22-2023 14:17-0400 Diastolic blood pressure 77 mm[Hg] [facility] 09-22-2023 14:17-0400 Heart rate 66 /min [facility] 09-22-2023 14:17-0400 Systolic blood pressure 109 mm[Hg] [facility] 09-12-2023 09:25-0400 Body height 167.64 cm [facility] 09-12-2023 09:25-0400 Body mass index (BMI) [Ratio] 31.3 kg/m2 [facility] 09-12-2023 09:25-0400 Body temperature 97.3 [degF] [facility] 09-12-2023 09:25-0400 Body weight 88 kg [facility] 09-12-2023 09:25-0400 Diastolic blood pressure 68 mm[Hg] [facility] 09-12-2023 09:25-0400 Heart rate 113 /min [facility] 09-12-2023 09:25-0400 Systolic blood pressure 103 mm[Hg] [facility] 08-26-2023 15:11-0400 Body height 167.64 cm [facility] 08-26-2023 15:11-0400 Body mass index (BMI) [Ratio] 30.4 kg/m2 [facility] 08-26-2023 15:11-0400 Body weight 85.5 kg [facility] 08-26-2023 15:11-0400 Diastolic blood pressure 65 mm[Hg] [facility] 08-26-2023 15:11-0400 Heart rate 121 /min [facility] 08-26-2023 15:11-0400 Systolic blood pressure 95 mm[Hg] [facility] 07-15-2023 12:00-0500 Diastolic blood pressure 56 mm[Hg] [address] 07-15-2023 12:00-0500 Heart rate 65 /min [address] 07-15-2023 12:00-0500 Respiratory rate 20 /min [address] 07-15-2023 12:00-0500 Systolic blood pressure 90 mm[Hg] [address] 07-15-2023 11:56-0500 SaO2% (BldA) [Mass fraction] 94 % [address] 07-01-2023 14:27-0500 Diastolic blood pressure 98 mm[Hg] Quan Hunter MD Work Phone: [facility] 07-01-2023 14:27-0500 Heart rate 110 /min Quan Hunter MD Work Phone: [facility] 07-01-2023 14:27-0500 Systolic blood pressure 124 mm[Hg] Quan Hunter MD Work Phone: [facility] 06-13-2023 12:53-0500 Body height 162.[address] 06-13-2023 12:53-0500 Body mass index (BMI) [Ratio] 32.61 kg/m2 [address] 06-13-2023 12:53-0500 Body weight 86.[address] 06-13-2023 12:53-0500 Diastolic blood pressure 60 mm[Hg] [address] 06-13-2023 12:53-0500 Systolic blood pressure 110 mm[Hg] [address] 05-27-2023 14:04-0500 Body height 162.6 cm Quan Hunter MD Work Phone: [facility] 05-27-2023 14:04-0500 Body mass index (BMI) [Ratio] 32.77 kg/m2 Quan Hunter MD Work Phone: [facility] 05-27-2023 14:04-0500 Body weight 86.59 kg Quan Hunter MD Work Phone: [facility] 05-27-2023 14:04-0500 Diastolic blood pressure 82 mm[Hg] Quan Hunter MD Work Phone: [facility] 05-27-2023 14:04-0500 Heart rate 112 /min Quan Hunter MD Work Phone: [facility] 05-27-2023 14:04-0500 Systolic blood pressure 122 mm[Hg] Quan Hunter MD Work Phone: [facility] 03-13-2023 15:30-0400 Body height 167.64 cm Maureen Mitchell Other [employer] Other 03-13-2023 15:30-0400 Body mass index (BMI) [Ratio] 30.99 kg/m2 Maureen Mitchell Other [employer] Other 03-13-2023 15:30-0400 Body weight 87.09 kg Maureen Mitchell Other [employer] Other 03-13-2023 15:30-0400 Diastolic blood pressure 67 mm[Hg] Maureen Mitchell Other [employer] Other 03-13-2023 15:30-0400 Systolic blood pressure 106 mm[Hg] Maureen Mitchell Other [employer] Other 07-30-2022 15:45-0500 Body height 167.64 cm Maureen Mitchell Other [employer] Other 07-30-2022 15:45-0500 Body mass index (BMI) [Ratio] 33.25 kg/m2 Maureen Mitchell Other [employer] Other 07-30-2022 15:45-0500 Body weight 93.44 kg Maureen Mitchell Other [employer] Other 07-30-2022 15:45-0500 Diastolic blood pressure 92 mm[Hg] Maureen Mitchell Other [employer] Other 07-30-2022 15:45-0500 Systolic blood pressure 158 mm[Hg] Maureen Mitchell Other [facility] Other 11-23-2021 14:27-0400 Blood Pressure Location Ibrahima NILL [facility] 11-23-2021 14:27-0400 Diastolic blood pressure 86 mm[Hg] Ibrahima NILL [facility] 11-23-2021 14:27-0400 Heart rate 72 /min Ibrahima NILL [facility] 11-23-2021 14:27-0400 Respiratory rate 16 /min Ibrahima NILL [facility] 11-23-2021 14:27-0400 Systolic blood pressure 126 mm[Hg] Ibrahima NILL [facility] [place] Encounters Encounter Date Encounter Type Care Provider Facility Start: 12-18-2023 End: 12-18-2023 ambulatory [facility] Work Phone: Start: 12-18-2023 End: 12-18-2023 Patient encounter procedure [facility] Work Phone: Start: 12-11-2023 End: 12-11-2023 ambulatory [facility] Work Phone: Start: 12-11-2023 End: 12-11-2023 Patient encounter procedure [facility] Work Phone: Start: 11-11-2023 End: 11-11-2023 ambulatory DARLENE GONZALEZ Not Available Start: 11-10-2023 Non-patient / Non-visit [facility] Work Phone: Start: 10-22-2023 End: 10-22-2023 ambulatory DOROTHY B APLING Not Available Start: 10-22-2023 End: 10-22-2023 ambulatory DOROTHY B APLING Not Available Start: 10-14-2023 End: 10-14-2023 ambulatory [facility] Work Phone: Start: 10-14-2023 End: 10-14-2023 Patient encounter procedure [facility] Work Phone: Start: 09-22-2023 End: 09-22-2023 ambulatory [facility] Work Phone: Start: 09-22-2023 End: 09-22-2023 Patient encounter procedure [facility] Work Phone: Start: 09-12-2023 End: 09-12-2023 ambulatory [facility] Work Phone: Start: 09-12-2023 End: 09-12-2023 Patient encounter procedure [facility] Work Phone: Start: 09-03-2023 Non-patient / Non-visit [facility] Work Phone: Start: 08-26-2023 End: 08-26-2023 ambulatory [facility] Work Phone: Start: 08-26-2023 End: 08-26-2023 Patient encounter procedure [facility] Work Phone: Start: 07-23-2023 Non-patient / Non-visit [facility] Work Phone: Start: 07-23-2023 Non-patient / Non-visit [facility] Work Phone: Start: 07-15-2023 End: 07-15-2023 Subsequent hospital visit by physician Jyotsna [id number] [facility] Comment on above: Essential hypertensi on; Shortness of breath; Angina pectoris, unstable (CMS/HCC) Start: 07-15-2023 End: 07-15-2023 ambulatory [facility] Start: 07-07-2023 End: 07-07-2023 ambulatory Maureen Mitchell Other [employer] Other Start: 07-07-2023 Telephone encounter Maureen Mitchell [facility] Start: 07-01-2023 End: 07-01-2023 ambulatory [facility] Start: 07-01-2023 End: 07-01-2023 Office outpatient visit 25 minutes Quan Hunter MD Work Phone: [facility] Comment on above: Angina pectoris, uns table (CMS/HCC) (Primary Dx); Dilation of aorta (CMS/HCC); Essential hypertension; Heart valve disease; Shortness of breath; Smoker; BMI 32.0-32.9,adult Start: 06-19-2023 End: 06-19-2023 ambulatory Maureen Mitchell Other [employer] Other Start: 06-19-2023 Office outpatient vi sit 15 minutes Maureen Mitchell [facility] Start: 06-13-2023 End: 06-13-2023 Subsequent hospital visit by physician Jyotsna Alcala305 Echo/Vasc 3 [facility] Comment on above: Shortness of breath; Heart valve disease; Dizziness; Dilation of aorta (CMS/HCC) Start: 06-13-2023 End: 06-13-2023 ambulatory [facility] Start: 06-02-2023 End: 06-02-2023 ambulatory Maureen Mitchell Other [employer] Other Start: 06-02-2023 Telephone encounter Maureen Mitchell [facility] Start: 05-27-2023 End: 05-27-2023 ambulatory [facility] Start: 05-27-2023 End: 05-27-2023 Office outpatient new 45 minutes Quan Hunter MD Work Phone: [facility] Comment on above: Shortness of breath; Essential hypertension; BMI 32.0-32.9,adult; Smoker; Heart valve disease; Dizziness; Dilation of aorta ([facility]) Start: 05-15-2023 End: 05-15-2023 ambulatory Maureen Mitchell Other [employer] Other Start: 05-15-2023 Telephone encounter Maureen Mitchell [facility] Start: 05-01-2023 End: 05-01-2023 ambulatory Maureen Mitchell Other [employer] Other Start: 05-01-2023 Telephone encounter Maureen Mitchell [facility] Start: 04-21-2023 End: 04-21-2023 ambulatory Maureen Mitchell Other [employer] Other Start: 04-21-2023 Telephone encounter Maureen Mitchell [facility] Start: 04-03-2023 (Televisit) Televisit Maureen Manzo [facility] Start: 04-03-2023 End: 04-03-2023 ambulatory Maureen Mitchell Other [employer] Other Start: 04-03-2023 Telephone encounter Maureen Mitchell [facility] Start: 04-01-2023 End: 04-01-2023 ambulatory Maureen Mitchell Other [employer] Other Start: 04-01-2023 Telephone encounter Maureen Mitchell [facility] Start: 03-13-2023 End: 03-13-2023 ambulatory Maureen Mitchell Other [employer] Other Start: 03-13-2023 Office outpatient vi sit 25 minutes Maureen Mitchell [facility] Start: 03-13-2023 Telephone encounter Maureen Mitchell [facility] Start: 02-13-2023 End: 02-13-2023 ambulatory Maureen Mitchell Other [employer] Other Start: 02-13-2023 Telephone encounter Maureen Mitchell [facility] Start: 01-30-2023 End: 01-30-2023 ambulatory Maureen Mitchell Other [employer] Other Start: 01-30-2023 Telephone encounter Maureen Mitchell [facility] Start: 01-16-2023 End: 01-16-2023 ambulatory Maureen Mitchell Other [employer] Other Start: 01-16-2023 Telephone encounter Maureen Mitchell [facility] Start: 12-31-2022 End: 12-31-2022 ambulatory Maureen Mitchell Other [employer] Other Start: 12-31-2022 Telephone encounter Maureen Mitchell [facility] Start: 12-06-2022 End: 12-06-2022 ambulatory Maureen Mitchell Other [employer] Other Start: 12-06-2022 Telephone encounter Maureen Mitchell [facility] Start: 11-18-2022 End: 11-18-2022 ambulatory Maureen Mitchell Other [employer] Other Start: 11-18-2022 Telephone encounter Maureen Mitchell [facility] Start: 11-06-2022 End: 11-06-2022 ambulatory Maureen Mitchell Other [employer] Other Start: 11-06-2022 Telephone encounter Maureen Mitchell [facility] Start: 09-19-2022 End: 09-19-2022 ambulatory Maureen Mitchell Other [employer] Other Start: 09-19-2022 Telephone encounter Maureen Mitchell [facility] Start: 09-10-2022 End: 09-10-2022 ambulatory Maureen Mitchell Other [employer] Other Start: 09-10-2022 Telephone encounter Maureen Mitchell [facility] Start: 08-22-2022 End: 08-22-2022 ambulatory Maureen Mitchell Other [employer] Other Start: 08-22-2022 Telephone encounter Maureen Mitchell [facility] Start: 08-19-2022 End: 08-19-2022 ambulatory Otoniel Robin Other [employer] Other Start: 08-19-2022 Telephone encounter Otoniel Kelly [facility] Start: 07-30-2022 End: 07-30-2022 ambulatory Maureen Mitchell Other [employer] Other Start: 07-30-2022 Office outpatient vi sit 25 minutes Maureen Mitchell [facility] Start: 07-25-2022 End: 07-25-2022 ambulatory Maureen Mitchell Other [employer] Other Start: 07-25-2022 Telephone encounter Maureen Mitchell [facility] Start: 07-24-2022 End: 07-24-2022 ambulatory Maureen Mitchell Other [employer] Other Start: 07-24-2022 Telephone encounter Maureen Mitchell [facility] Start: 03-29-2022 End: 03-30-[address] MAUREEN MITCHELL Facility:[facility] Start: 03-29-2022 Adult health examination Maureen Mitchell Other [employer] Other Start: 03-25-2022 End: 03-26-[address] MAUREEN MITCHELL Facility: Start: 12-28-2021 End: 01-15-2022 ambulatory MAUREEN MITCHELL Facility:[facility] Start: 12-05-2021 Encounter for genera l adult medical examination without abnormal findings DR MAUREEN MITCHELL [facility] Start: 12-04-2021 End: 12-05-[address] IBRAHIMA GONZALEZ Facility:[facility] Start: 12-04-2021 End: 12-05-2021 Encounter for general adult medical examination without abnormal findings DR MAUREEN MITCHELL Facility:[facility] Start: 11-23-2021 End: 11-24-2021 ambulatory Ibrahima GONZALEZ Facility:[facility] Start: 11-23-2021 End: 11-23-2021 Patient encounter procedure Ibrahima GONZALEZ [facility] Start: 11-09-2021 ambulatory Ibrahima GONZALEZ Facility:[facility] Start: 11-03-2021 End: 11-03-[address] CHONG GUTIERREZ Facility:[facility] Start: 02-09-2018 End: 02-09-2018 Patient encounter PATRICK MENDOZA [facility] Start: 02-06-2018 End: 02-11-2018 Patient encounter PATRICK MENDOZA [facility] Start: 11-17-2017 End: 11-18-2017 Ambulatory VIPUL PARSONS [facility] Start: 10-18-2017 End: 10-20-2017 Evaluation and management of inpatient MOISE ARGUETA [facility] Procedures Date Procedure Procedure Detail Performing Clinician Start: 07-15-2023 CT ANGIO CORONARY ART WITH HEARTFLOW IF SCORE >30% QUAN ABIOSE Start: 07-15-2023 POCT CREATININE AND GFR QUAN ABIOSE Start: 07-15-2023 Cta hrt cornry art/bypass grfts contrst 3d post Quan Hunter MD Work Phone: Start: 07-15-2023 Creatinine blood Interface Unspecifiedprovider Work Phone: Start: 06-13-2023 TRANSTHORACIC ECHO (TTE) COMPLETE QUAN ABIJUNAID Start: 06-13-2023 Echo tthrc r-t 2d w/wom-mode compl spec&colr d Quan Hunter MD Work Phone: Start: 02-09-2018 INCENTIVE SPIROMETRY RT PATRICK REJI Start: 02-09-2018 DISCHARGE PATIENT PATRICK REJI Start: 09-17-2018 SURGICAL PATHOLOGY PATRICK REJI Start: 02-09-2018 INCENTIVE [...] REJI Start: 02-09-2018 PULSE OXIMETRY SPOT CHECK PATRICK REJI Start: 02-09-2018 VITAL SIGNS PATRICK [...] MOISE ARGUETA Start: 10-20-2017 DAILY WEIGHTS MOISE MENDOZADON Start: 10-20-2017 ENDO PROCEDURE MOISE MENDOZADON Start: 10-20-2017 INTAKE AND OUTPUT MOISE MENDOZADON Start: 10-20-2017 HEMOGLOBIN AND HEMATOCRIT, BLOOD MOISE MENDOZADON Start: 10-19-2017 HEMOGLOBIN AND HEMATOCRIT, BLOOD MOISE MENDOZADON Start: 10-19-2017 HEMOGLOBIN AND HEMATOCRIT, BLOOD MOISE MENDOZADON Start: 10-19-2017 Potassium serum plasma/whole blood MOISE MENDOZADON Start: 10-19-2017 TROPONIN MOISE MENDOZADON Start: 10-19-2017 HEMOGLOBIN AND HEMATOCRIT, BLOOD MOISE MENDOZADON Start: 10-19-2017 IP CONSULT TO GI MOISE MENDOZADON Start: 10-19-2017 PLACE INTERMITTENT PNEUMATIC COMPRESSION DEVICE MOISE MENDOZADON Start: 10-19-2017 REASON FOR NO CHEMICAL VTE PROPHYLAXIS MOISE MENDOZADON Start: 10-19-2017 TELEMETRY MONITORING MOISE KENDALL Start: 10-19-2017 TOBACCO CESSATION EDUCATION MOISE REJI JA Start: 10-19-2017 BEDREST WITH BATHROOM PRIVILEGES MOISE KENDALL Start: 10-19-2017 FULL CODE MOISE MENDOZADON Start: 10-19-2017 INTAKE AND OUTPUT MOISE KENDALL Start: 10-19-2017 MISCELLANEOUS NURSING CARE ORDER (SPECIFY) MOISE MENDOZADON Start: 10-19-2017 NOTIFY PHYSICIAN (SPECIFY) MOISE NICOLAS ON Start: 10-19-2017 VITAL SIGNS MOISE MENDOZADON Start: 10-19-2017 INITIATE OXYGEN THERAPY PROTOCOL MOISE KENDALL Start: 10-19-2017 PATIENT STATUS (FROM ED OR OR/PROCEDURAL) MOISE KENDALL Start: 10-19-2017 Basic metabolic panel calcium total MOISE KENDALL Start: 10-19-2017 HEMOGLOBIN AND HEMATOCRIT, BLOOD MOISE KENDALL Start: 10-19-2017 TRANSFUSE RED BLOOD CELLS MOISE MILLER N Start: 10-19-2017 TRANSFUSE RED BLOOD CELLS MOIES MILLER N Start: 10-19-2017 PREPARE RBC (CROSSMATCH) MOISE KENDALL Start: 10-19-2017 HEMOGLOBIN AND HEMATOCRIT, BLOOD MOISE KENDALL Start: 10-18-2017 Radiologic exam chest single view MOISE ARGUETA Start: 10-18-2017 Assay of lipase MOISE KENDALL Start: 10-18-2017 Blood count complete auto&auto difrntl wbc MOISE ARGUETA Start: 10-18-2017 FERRITIN MOISE ARGUETA Start: 10-18-2017 [...] ARGUETA Start: 10-18-2017 NOTIFY PHYSICIAN (SPECIFY) MOISE NICOLAS ON Start: 10-18-2017 OT EVAL AND TREAT MOISE ARGUETA Start: 10-18-2017 PT EVAL AND TREAT MOISE ARGUETA Start: 10-18-2017 INITIATE OXYGEN THERAPY PROTOCOL MOISE ARGUETA Start: 10-18-2017 MISCELLANEOUS NURSING CARE ORDER (SPECIFY) MOISE ARGUETA Start: 10-18-[address] PL[address] INTERMITTENT PNEUMATIC COMPRESSION DEVICE MOISE ARGUETA Start: 10-18-2017 REASON FOR NO CHEMICAL VTE PROPHYLAXIS MOISE ARGUETA Start: 10-18-2017 TOBACCO CESSATION EDUCATION MOISE PERES Start: 10-18-2017 VITAL SIGNS MOISE ARGUETA Start: 10-18-2017 MRSA DNA PROBE, NASAL MOISE ARGUETA Start: 10-18-2017 PATIENT STATUS (DIRECT) MOISE ARGUETA Start: 05-26-2017 Colonoscopy Ibrahima [employer]pper [employer] Start: 05-26-2017 Esophagogastroduodenoscopy Ibrahima [employer] Start: 02-09-2016 Substance abuse counseling Maureen Mitchell Other Start: 09-20-2014 General examination of patient Maureen Virgilio boone Other Start: 09-20-2014 Screening mammography Maureen Mitchell Other Appendectomy Ibrahima NILL Circumferential body lift Mi sybil [employer] Excision of lumbar intervertebral disc Ibrahima [employer] Comment on above: L4-L5 Exploratory laparotomy Martyjoanne PANDYAL Maame-en-Y gastrojejunostomy Ibrahima [employer] Screening for malign ant neoplasm of breast Maureen Mitchell Other Total abdominal hyst erectomy with bilateral salpingo-oophorectomy Ibrahima GONZALEZ Plan of Treatment Date Care Activity Detail Author Start: 09-30-2023 End: 09-30-2023 Patient encounter procedure 09/30/2023 10:00 AM EDT Office Visit [facility] [address] [place] [phone] Quan Hunter MD [address] [facility] Office [facility], [address] [address] [facility] Start: 07-01-2023 End: 07-01-2024 CTA Heart and Coronary arteries WO and W contrast IV CT angio coronary art with heartflow if score >30% Imaging Routine Essential hypertension Shortness of breath Angina pectoris, unstable (CMS/HCC) Expected: 07/01/2023 (Approximate), Expires: 07/01/2024 [facility] Service Area Work Phone: Comment on above: Expected: 07/01/2023 (Approximate), Expires: 07/01/2024 Start: 07-01-2023 End: 07-01-2023 Patient encounter procedure 07/01/2023 2:00 PM EST Office Visit [facility] [address] [place] [phone] Qaun Hunter MD [address] [facility], [address] [address] [facility] Start: 05-27-2023 End: 05-27-2024 CT Chest WO contrast CT chest wo IV contrast Imaging Routine Heart valve disease Dilation of aorta (CMS/HCC) Expected: 05/27/2023 (Approximate), Expires: 05/27/2024 [facility] Work Phone: Comment on above: Expected: 05/27/2023 (Approximate), Expires: 05/27/2024 Start: 05-27-2023 End: 05-27-2025 Heart Transthoracic Transthoracic Echo (TTE) Complete Echocardiography Routine Shortness of breath Heart valve disease Dizziness Dilation of aorta (CMS/HCC) Expected: 05/27/2023 (Approximate), Expires: 05/27/2025 [facility] Service Area Work Phone: Comment on above: Expected: 05/27/2023 (Approximate), Expires: 05/27/2025 Start: 01-24-2023 COVID-19 Vaccine () COVID-19 Vaccine () [facility] Start: 01-24-2023 Influenza vaccination Influenza Vacc ine (#1) [facility] Start: 07-08-2021 COVID-19 Vaccine (4 - Pfizer series) COVID-19 Vaccine (4 - Pfizer series) [facility] Start: 2018 Zoster Vaccines (1 o f 2) Zoster Vaccines (1 of 2) [facility] Start: 2008 Screening for malign ant neoplasm of breast Mammogram [facility] Start: 05-17-1997 DTaP/Tdap/Td Vaccine s (1 - Tdap) DTaP/Tdap/Td Vaccines (1 - Tdap) [facility] Start: 1989 Screening for malign ant neoplasm of cervix [facility] Start: 1986 Diabetes mellitus screening Diabetes Screening [facility] Start: 1986 Hepatitis C screening Hepatitis C [facility] Start: 1974 Pneumococcal Vaccine : Pediatrics (0 to 5 Years) and At-Risk Patients (6 to 64 Years) (1 - PCV) Pneumococcal Vaccine: Pediatrics (0 to 5 Years) and At-Risk Patients (6 to 64 Years) (1 - PCV) [facility] Start: 1968 HIV screening HIV Screening [facility] Start: 1968 Lipid panel Lipid Panel [facility] Start: 1968 Screening for malign ant neoplasm of colon [facility] Start: 1968 Screening for osteoporosis Bone Density Scan [facility] Start: 1968 Yearly Adult Physical Yearly Adult P hysical [facility] Comprehensive metabo lic 2000 panel - Serum or Plasma [facility] Patient Education Low back pain in adults [facility] Work Phone: [facility] Immunizations Immunization Date Immunization Notes Care Provider Fa cilielbert 05-13-2021 influenza virus vaccine, unspecified formulation Quan Hunter MD Work Phone: [facility] Work Phone: 08-22-2020 COVID-19 Vaccine Pfi zer - Documentation Purposes Only Maureen Mitchell Other [facility] 08-02-2020 COVID-19 Vaccine Pfi zer - Documentation Purposes Only Maureen Mitchell Other [facility] 04-28-2020 influenza virus vaccine, split virus (incl. purified surface antigen) Maureen Mitchell Other [employer] Other 04-28-2020 influenza virus vaccine, unspecified formulation [facility] 03-06-2016 influenza virus vaccine, split virus (incl. purified surface antigen) Maureen Mitchell Other [employer] Other 03-06-2016 influenza virus vaccine, unspecified formulation [facility] Payers Date Payer Category Payer Medicare [id number] 2022 Private Health Insurance [facility] [id number] 2022-Present [address] [place] [address] [id number] 2022 Private Health Insurance [id number] 2021 Private Health Insurance [id number] 2014 Unknown [id number] 1968 Unknown [id number] 2.16.840.1.409716.3.579.2. 647 1968 Unknown [id number] 2.16.840.1.525666.3.579.2. 593 1968 Unknown [id number] 2.16.840.1.268228.3.579.2. 593 1968 Unknown [id number] 2.16.840.1.514925.3.579.2. 593 1968 Unknown [id number] 2.16.840.1.729724.3.579.2. 593 1968 Unknown [id number] 2.16.840.1.998075.3.579.2. 593 1968 Unknown [id number] 2.16.840.1.507249.3.579.2. 727 1968 Unknown [id number] 2.16.840.1.034948.3.579.2. 1244 1968 Unknown [id number] 2.16.840.1.780571.3.579.2. 4 1968 Unknown [id number] 2.16.840.1.024068.3.579.2. 1258 1968 Unknown [id number] 2.16.840.1.653135.3.579.2. 1258 1968 Unknown [id number] 2.16.840.1.338133.3.579.2. 1258 1968 Unknown [id number] 2.16.840.1.048527.3.579.2. 1258 1968 Unknown [id number] 2.16.840.1.717036.3.579.2. 1258 1968 Unknown [id number] 2.16.840.1.961546.3.579.2. 1258 1968 Unknown [id number] 2.16.840.1.627678.3.579.2. 1245 1968 Unknown [id number] 2.16.840.1.091989.3.579.2. 1246 1959 Private Health Insurance [id number] Private Health Insurance [id number] [id number] Self-pay Self Pay [id number] Social History Date Type Detail Facility Start: 11-23-2021 Tobacco smoking status Heavy t obacco smoker (finding) [facility] Tobacco smoking status Never [facility] Start: 05-27-2023 End: 07-01-2023 Sex Assigned At Female [facility] Start: 05-27-2023 End: 09-22-2023 Tobacco smoking status NHIS Occasional tobacco smoker [facility] Work Phone: History of tobacco use Cigarette Smoker U [facility] Work Phone: Start: 05-27-2023 End: 07-01-2023 Cigarettes smoked current (pack per day) - Reported 0.5 [facility] Work Phone: Start: 05-27-2023 Tobacco use and exposure Smokeless tobacco non-user [facility] Work Phone: Start: 05-27-2023 Alcohol intake Not Asked [facility] Work Phone: Start: 05-27-2023 Alcohol Comment rarely [facility] Work Phone: Start: 1970 Sex Assigned At Not on file [facility] Work Phone: Start: 05-17-2023 End: 07-15-2023 Exposure to SARS-CoV-2 (event) Not sure [facility] Start: 07-01-2023 Alcohol intake Current drinke r of alcohol (finding) [facility] Work Phone: Start: 06-28-2023 Tobacco smoking stat us NHIS Smoker (finding) [facility] Start: 1968 Sex Assigned At Female F [facility] Functional Status Date Assessment Result Facility 11-23-2021 Functional Status N/A [facility] Clinical Notes 10-11-2020 to 07-15-2023 Result Encounter [...] to current treatment. documented in this encounter [facility] Work Phone: 07-15-2023 Nurse Note Post CCTA pt denies feeling dizzy or lightheaded, denies headache. Steady on feet, skin warm pink and dry. Pt verbalized understanding of increased water intake x24 hours, educated on side effects of medications. HL removed with tip intact, manual pressure held until hemostasis achieved, 2x2 and coban to site. Pt DC home to self care with family [facility] Work Phone: 07-15-2023 Nurse Note Post CCTA [...] her chest hurt documented in this encounter [facility] Work Phone: 07-15-2023 Nurse Note Post CCTA [...] her chest hurt documented in this encounter [facility] Work Phone: 07-15-2023 Progress note Formatting of t his note might be different from the original. CTA shows very minimal atherosclerosis with no significant stenosis. Recommend routine follow-up and continue to current treatment. [facility] Work Phone: 07-15-2023 Nurse Note Pt. Unable to tolerate deep breathing excercises for HR control. She states that holding her breath makes her chest hurt [facility] Work Phone: 07-07-2023 Evaluation note Encounter Date Diagnosis Assessment Notes Jun, Lumbar degenerative disc disease (ICD-10 - M51.36) Jun, Medication management (ICD-10 - Z79.899) [employer] Other 02-06-2024 History of Present illness Narrative* [...] person, place and time. [facility] 1(313) 970-488302-06-2024 Instructions* Patient Instructions* Paulo Bucio LPN - 07/01/2023 2:[address] Angio Stop carvedilol Start Metoprolol XL 25 mg BID 3 month [facility] Work Phone: 1(550) 820-714901-25-2024 Evaluation note* Encounter Date Diagnosis Assessment Notes Treatment Notes Treatment Clinical Notes May, Lumbar degenerative disc disease (ICD-10 - M51.36) OARRS reviewed Medications refilled Refer to Dr. Gonzalez per patient's request. May, Anxiety disorder, unspecified (ICD-10 - F41.9) Medications refilled. [employer] Other 01-08-2024 Evaluation note* Encounter Date Diagnosis Assessment Notes Treatment Notes Treatment Clinical Notes May, Lumbar degenerative disc disease (ICD-10 - M51.36) May, Anxiety disorder, unspecified (ICD-10 - F41.9) [employer] Other 01-02-2024 History of Present illness Narrative* [...] person, place and time. [facility] Work Phone: 1(971) 658-126501-02-2024 Instructions* Patient Instructions* Paulo Bucio LPN - 05/27/2023 1:45 PM EST Follow up after testing CT Thoracic Echo [facility] Work Phone: 1(293) 898-542612-07-2023 Evaluation note* Encounter Date Diagnosis Assessment Notes Treatment Notes Treatment Clinical Notes Apr, Lumbar degenerative disc disease (ICD-10 - M51.36) [employer] Other 11-09-2023 Evaluation note* Encounter Date Diagnosis [...] to go to ER by calling 911. [employer] Other 11-07-2023 Evaluation note* Encounter Date Diagnosis Assessment Notes Treatment Notes Treatment Clinical Notes Mar, Lumbar degenerative disc disease (ICD-10 - M51.36) [employer] Other 10-19-2023 Evaluation note* Encounter Date Diagnosis Assessment Notes Treatment Notes Treatment Clinical Notes Feb, Anxiety disorder, unspecified (ICD-10 - F41.9) Chronic problem list refill Xanax. Patient states Xanax does completely resolve her symptoms reviewed OARRS report. Feb, Lumbar degenerative disc disease (ICD-10 - M51.36) We will request records from pain management at [place] as far as the MRI and upcoming treatment plan. Reviewed OARRS report. Discussed decreasing amount or frequency of oxycodone. Patient defers to have an upcoming MRI and plan of treatment through pain management. We will monitor further symptoms of overdosing carefully. Feb, Vitamin D deficiency (ICD-10 - E55.9) Lab order sent to [facility] per patient's request Feb, Iron deficiency anemia, unspecified iron deficiency anemia type (ICD-10 - D50.9) As above lab order sent to [facility]. Previously under the care of of Dr. Bañuelos at [facility] cancer Feb, Medication management (ICD-10 - Z79.899) Monitor kidney and liver function based on her chronic medications. [employer] Other 09-21-2023 Evaluation note* Encounter Date Diagnosis Assessment Notes Treatment Notes Treatment Clinical Notes Jan, Anxiety disorder, unspecified (ICD-10 - F41.9) [employer] Other 09-07-2023 Evaluation note* Encounter Date Diagnosis Assessment Notes Treatment Notes Treatment Clinical Notes Jan, Lumbar degenerative disc disease (ICD-10 - M51.36) [employer] Other 08-24-2023 Evaluation note* Encounter Date Diagnosis Assessment Notes Treatment Notes Treatment Clinical Notes Dec, Anxiety disorder, unspecified (ICD-10 - F41.9) [employer] Other 08-08-2023 Evaluation note* Encounter Date Diagnosis Assessment Notes Treatment Notes Treatment Clinical Notes Dec, Lumbar degenerative disc disease (ICD-10 - M51.36) [employer] Other 07-14-2023 Evaluation note* Encounter Date Diagnosis Assessment Notes Treatment Notes Treatment Clinical Notes Nov, Lumbar degenerative disc disease (ICD-10 - M51.36) [employer] Other 06-14-2023 Evaluation note* Encounter Date Diagnosis Assessment Notes Treatment Notes Treatment Clinical Notes Oct, Lumbar degenerative disc disease (ICD-10 - M51.36) [employer] Other 04-27-2023 Evaluation note* Encounter Date Diagnosis Assessment Notes Treatment Notes Treatment Clinical Notes Aug, Left foot pain (ICD-10 - M79.672) Aug, Migraine without status migrainosus, not intractable, unspecified migraine type (ICD-10 - G43.909) Aug, Anxiety disorder, unspecified (ICD-10 - F41.9) Aug, Depression, unspecified (ICD-10 - F32.A) [employer] Other 04-18-2023 Evaluation note* Encounter Date Diagnosis Assessment Notes Treatment Notes Treatment Clinical Notes Aug, Lumbar degenerative disc disease (ICD-10 - M51.36) [employer] Other 03-07-2023 Evaluation note* Encounter Date Diagnosis [...] Pain in left leg (ICD-10 - M79.605) [employer] Other 03-07-2023 Evaluation note* Encounter Date Diagnosis [...] bandaid and further cushioning on L elbow. [employer] Other 07-19-2022 NoteChief Complaint consultation for cholelithiasis HPI Staff 51 year old female presents on consultation form Dr. Mitchell for cholelithiasis. Presented to [facility] ED 11/03 for abdominal cramping, nausea and [...] GI bleeding requiring transfusion and transfer to [place]; she was seen in ED at [facility] for acute onset of nausea/vomiting and crampy [...] - Total abdominal hysterect (more content not included)...[facility] HospitalComment on [facility]:Result Comment: Electronically Signed By: CARLOS BURKETT, Ibrahima Mueller\Date and Time Signed: 12/11/21 08:23 [id number] NoteHNO ID: [id number] Author: Hai Matute APRN.CHARGER Service: ? Author Type: Nurse Practitioner Type: Progress Notes Filed: 11/08/2020 3:37 PM Note Text: NAME: Candy Booth CLINIC NO.: [id number] DATE OF SERVICE: November 08, 2020 Referring [...] pill endoscopy. 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 She has primary complaints of fatigue but [...] as needed. sertraline ( (more content not included)...[facility]05-19-2021 NoteHNO ID: [id number] Author: Jay Amaya MD Service: ? Author Type: Physician Type: Progress Notes Filed: 10/21/2020 6:59 PM Note Text: NAME: Candy Booth [facility] NO.: [id number] DATE OF SERVICE: October 11, 2020 Referring [...] pill endoscopy. 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 She has primary complaints of fatigue but [...] mg tablet Take 1 (more content not included)...[facility] No data available for this section [facility] Evaluation noteNo InformationNortPenn State Health [facility] [employer] Other Evaluation noteNomineral area regional [facility] [place] Other Evaluation note* Diagnosis Shortness of breath Essential hypertension Unspecified essential hypertension BMI 32.0-32.9,adult Smoker Tobacco use disorder Heart valve disease Endocarditis, valve unspecified, unspecified cause Dizziness Dizziness and giddiness Dilation of aorta (CMS/HCC) documented in this encounter [facility] Work Phone: Evaluation note* Diagnosis Shortness of breath Heart valve disease Endocarditis, valve unspecified, unspecified cause Dizziness Dizziness and giddiness Dilation of aorta (CMS/HCC) documented in this encounter [facility] Work Phone: Evaluation note* Diagnosis Angina pectoris, unstable (CMS/HCC)- Primary Intermediate coronary syndrome Dilation of aorta (CMS/HCC) Essential hypertension Unspecified essential hypertension Heart valve disease Endocarditis, valve unspecified, unspecified cause Shortness of breath Smoker Tobacco use disorder BMI 32.0-32.9,adult documented in this encounter [facility] Work Phone: Evaluation note* Diagnosis Essential hypertension Unspecified essential hypertension Shortness of breath Angina pectoris, unstable (CMS/HCC) Intermediate coronary syndrome documented in this encounter [facility] Work Phone: Evaluation note* Diagnosis Essential hypertension Unspecified essential hypertension Shortness of breath Angina pectoris, unstable (CMS/HCC) Intermediate coronary syndrome documented in this encounter [facility] Work Phone: Evaluation note* Diagnosis Onset Date Resolution Status Edema acute HTN (hypertension) acute [facility] Work Phone: Evaluation note* Diagnosis Onset Date Resolution Status Anxiety acute Chronic lumbar pain acute Edema acute HTN (hypertension) acute Lumbar degenerative disc disease acute Peripheral neuropathic pain acute Skin ulcer of elbow acute Anxiety acute Chronic pain syndrome acute Encounter for palliative care acute Peripheral neuropathic pain acute [facility] Work Phone: Evaluation note* Diagnosis Onset Date Resolution Status Anxiety acute Chronic lumbar pain acute Edema acute HTN (hypertension) acute Lumbar degenerative disc disease acute Peripheral neuropathic pain acute Skin ulcer of elbow acute Anxiety acute Chronic pain syndrome acute Encounter for palliative care acute Anxiety acute Chronic pain syndrome acute [facility] Work Phone: Evaluation note* Diagnosis Onset Date Resolution Status Anxiety acute Chronic lumbar pain acute Edema acute HTN (hypertension) acute Lumbar degenerative disc disease acute Peripheral neuropathic pain acute Skin ulcer of elbow acute Anxiety acute Chronic pain syndrome acute Encounter for palliative care acute Anxiety acute Chronic pain syndrome acute Chronic pain syndrome acute Peripheral neuropathic pain acute [facility] Work Phone: Evaluation note* Diagnosis Onset Date Resolution Status Anxiety acute Chronic pain syndrome acute Anxiety acute Chronic pain syndrome acute Depression acute Impaired mobility and ADLs a cute Peripheral neuropathic pain acute Anxiety acute Chronic pain syndrome acute Depression acute Peripheral neuropathic pain acute [facility] Work Phone: Evaluation note* Diagnosis Onset Date Resolution Status Anxiety acute Chronic pain syndrome acute Anxiety acute Chronic pain syndrome acute Depression acute Impaired mobility and ADLs a cute Peripheral neuropathic pain acute Anxiety acute Chronic pain syndrome acute [facility] Work Phone: History general Narrative - Reported* [...] Surgical History diskectomy Hospitalization History see above [employer] Other History general Narrative - ReportedNomineral [facility] [place] Other Hospital Discharge instructions No data available for this section [facility] Progress note No data available for this section [facility] Reason for visit Narrativereferral for pain management / orthoKellogg [place] Other Summary Purpose Family History Relationship Condition [...] Referral Specialty Diagnoses / Procedures Referred By Contac t Referred To Contact Radiology Diagnoses Essential hypertension Shortness of breath Angina pectoris, unstable (CMS/HCC) Procedures CT angio coronary art with heartflow if score >30% Quan Hunter MD [address] [facility], [address] [place] [address] Referral ID Status Reason Start Date Expiration Date Visits Requested Visits Authorized [id number] Pending Review Perform Procedure 07/01/2023 06/30/2024 1 1 Reason *FU 07/07 Lumbar D DD and radiculopathy Diagnosis 1 Lumbar degenerative disc disease (M51.36) Referral Organization [facility] C linsusanna Referring Provider First Name Maureen Referring Provider Last Name Mando Referring Provider Specialty [facility] Referred Organization [facility] Referred Provider Darlene Gonzalez Referred Address ,[place], [place],[address] Referred Provider Specialty Orthopedic S urgery Referral Priority Routine General Notes Joselyn Zee 12:44:56 PM >received today, notes locked, attachments made, referral faxed Specialty Diagnoses / Procedures Referred By Lilliac t Referred To Contact Radiology Diagnoses Heart valve disease Dilation of aorta (CMS/HCC) Procedures CT chest wo IV contrast Quan Hunter MD [address] [facility], [address] [address] Referral ID Status Reason Start Date Expiration Date Visits Requested Visits Authorized [id number] Pending Review Perform Procedure 05/27/2023 05/26/2024 1 1 Specialty Diagnoses / Procedures Referred By Norberto abernathy Referred To Contact Cardiology Diagnoses Shortness of breath Heart valve disease Dizziness Dilation of aorta (CMS/HCC) Procedures Transthoracic Echo (TTE) Complete MO ECHO TTHRC R-T 2D W/WOM-MODE COMPL SPEC&COLR D Quan Hunter MD [address] [facility], [address] [address] Referral ID Status Reason Start Date Expiration Date Visits Requested Visits Authorized [id number] Pending Review Perform Procedure 05/27/2023 05/26/2024 1 [...] section and content) DATE CREATED AUTHOR 11/18/2017 [facility] DATE CREATED AUTHOR AUTHOR'S ORGANIZ ATION 03/09/2018 [facility] DATE CREATED AUTHOR AUTHOR'S ORGANIZ ATION 08/07/2021 [facility] DATE CREATED AUTHOR AUTHOR'S ORGANIZ ATION 08/17/2021 [facility] DATE CREATED AUTHOR AUTHOR'S ORGANIZ ATION 01/18/2022 [facility] DATE CREATED AUTHOR AUTHOR'S ORGANIZ ATION 04/05/2022 [facility] DATE CREATED AUTHOR AUTHOR'S ORGANIZ ATION 07/02/2022 [facility] ical Center DATE CREATED AUTHOR AUTHOR'S ORGANIZ ATION 07/06/2023 [facility] DATE CREATED AUTHOR AUTHOR'S ORGANIZ ATION 11/16/2023 [facility] EPIC DATE CREATED AUTHOR AUTHOR'S ORGANIZ ATION 12/11/2023 [facility] Care Team (unrecognized sect ion and content) [...] 14, 2023 End: October 14, 2023 Thi Vidal APRN Attending Provider Active Start: October 14, 2023 End: October 14, 2023 Team Status: Active Member Role Status Dates Maureen Mitchell MD Primary Care Provider Active Start: November 10, 2023 Chong Elizabeth Attending Provider Active Start: November 10, 2023 Team Status: Inactive Member Role Status Dates Maureen Mitchell MD Primary Care Provider Active Start: December 11, 2023 End: December 11, 2023 Thi Vidal APRN Attending Provider Active Start: December 11, 2023 End: December 11, 2023 Batch Heat Treat Operator Relationship Specialty Start Date End Date Maureen Mitchell MD [address] [place] [address] PCP - General Family Medicine 05/27/23 Batch Heat Treat Operator Relationship Specialty Start Date End Date Maureen Mitchell MD [address] [place] [address] PCP - General Family Medicine 05/27/23 Batch Heat Treat Operator Relationship Specialty Start Date End Date Maureen Mitchell MD [address] [place] [address] PCP - General Family Medicine 05/27/23 Quan Hunter MD [facility] Office [facility], [address] [address] Patient Consumer Marketer Cardiology 06/17/23 Batch Heat Treat Operator Relationship Specialty Start Date End Date Maureen Mitchell MD [address] [place] [address] PCP - General Family Medicine 05/27/23 Quan Hunter MD [address] [facility], [facility] [address] [place] [address] Patient Consumer Marketer Cardiology 06/17/23 Batch Heat Treat Operator Relationship Specialty Start Date End Date Maureen Mitchell MD [address] [place] [address] PCP - General Family Medicine 05/27/23 Quan Hunter MD [address] [facility], [address] [address] Patient Consumer Marketer Cardiology 06/17/23 Team Status: Active Member Role [...] aorta (CMS/HCC) Procedures Transthoracic Echo (TTE) Complete MO ECHO TTHRC R-T 2D W/WOM-MODE COMPL SPEC&COLR D Quan Hunter MD [address] [facility], [facility] [address] [place] [address] Referral ID Status Reason Start Date Expiration Date Visits Requested Visits Authorized [id number] Authorized Perform Procedure 05/27/2023 05/26/2024 1 1 Reason Comments Patient here for follow up Echo Specialty Diagnoses / Procedures Referred By Contac t Referred To Contact Radiology Diagnoses Essential hypertension Shortness of breath Angina pectoris, unstable (CMS/HCC) Procedures CT angio coronary art with heartflow if score >30% Quan Hunter MD [address] [facility], [facility] [address] [place] [address] Referral ID Status Reason Start Date Expiration Date Visits Requested Visits Authorized [id number] Authorized Perform Procedure 07/01/2023 06/30/2024 1 1 [...] BE BASED ON THE PRIMARY CLINICAL RECORDS. [facility]. provides no warranty or guarantee of the accuracy or completeness of information in this document.
[2023-12-28 13:19] LABS: Bilirubin Urine NEGATIVE (NEGATIVE); Blood Urine NEGATIVE (NEGATIVE); Clarity Urine CLEAR (CLEAR); Color Urine LT. YELLOW (YELLOW); Glucose Urine UA NEGATIVE (NEGATIVE); Ketones Urine NEGATIVE (NEGATIVE); Leukocyte Esterase Urine NEGATIVE (NEGATIVE); Nitrite Urine NEGATIVE (NEGATIVE); Protein Urine NEGATIVE (NEG/TRACE); Specific Gravity Urine <=1.005 (1.005-1.025); Urobilinogen Urine 0.2 EU/dL (0.2-1.0)
[2023-12-28 13:21] LABS: Creatinine Urine Random <13.00 mg/dL (20.00-300.00); Sodium Urine Random 13 mmol/L (30-90)
[2023-12-28] MEDS: 0.9 % SODIUM CHLORIDE 1,000 ML 125 ML IV ×2 (13:32→23:35)
[2023-12-28] MEDS: PANTOPRAZOLE SODIUM 40 MG VIAL IV ×2 (13:32→21:35)
[2023-12-28] MEDS: METRONIDAZOLE/SODIUM CHLORIDE 500 MG/100 ML PREMIX 100 MG IV ×2 (13:33→21:37)
[2023-12-28] MEDS: PREGABALIN 100 MG CAPSULE 200 MG PO ×2 (13:44→22:04)
[2023-12-28] MEDS: OXYCODONE HCL 15 MG TABLET 30 MG PO ×3 (13:44→23:48)
[2023-12-28] MEDS: ALPRAZOLAM 0.5 MG TABLET PO ×3 (13:44→23:48)
[2023-12-28 13:49] LABS: Urine Microscopic Indicated NO
[2023-12-28] MEDS: CEFTRIAXONE 1,000 MG in 0.9 % SODIUM CHLORIDE 50 ML 100 MG IV (15:25)
[2023-12-28 16:16] LABS: Hematocrit 25.6 % (36.0-48.0); Hemoglobin 8.8 g/dL (12.0-16.0)
[2023-12-28] MEDS: ENOXAPARIN SODIUM 40 MG/0.4 ML SYRINGE SUBQ (16:26)
[2023-12-28 16:38] LABS: Anion Gap 11.3; BUN Creatinine Ratio 17.3; Carbon Dioxide 24.8 mmol/L (21.0-32.0); Chloride 97 mmol/L (98-107); Estimated GFR (African America >60 (>=60); Estimated GFR (Non-African Ame >60 (>=60); Glucose 87 mg/dL (74-106); Potassium 4.1 mmol/L (3.5-5.1); Sodium 129 mmol/L (136-145)
[2023-12-28] MEDS: AMITRIPTYLINE HCL 25 MG TABLET 75 MG PO (22:04)
[2023-12-28 22:15] LABS: Hematocrit 27.1 % (36.0-48.0); Hemoglobin 9.1 g/dL (12.0-16.0)
[2023-12-28 22:26] LABS: Anion Gap 10.3; Calcium 8.4 mg/dL (8.5-10.1); Carbon Dioxide 25.4 mmol/L (21.0-32.0); Chloride 101 mmol/L (98-107); Estimated GFR (African America >60 (>=60); Estimated GFR (Non-African Ame >60 (>=60); Glucose 102 mg/dL (74-106); Potassium 3.7 mmol/L (3.5-5.1); Sodium 133 mmol/L (136-145)
[2023-12-29] VITALS (18 sets, daily range): BP systolic 95–132; BP diastolic 61–86; PULSE 86–97; TEMP 36.6–36.7; O2SAT 91–99
--- NOTE | 2023-12-29 | CONS_ITS ---
CONSULTATION ? CONSULTATION DATE: ??12/29/2023 ? REASON FOR CONSULTATION:? GI bleeding, abdominal pain. ? HISTORY OF PRESENT ILLNESS:? Patient is a 53-year-old female with multiple medical problems including history of chronic pain, peripheral neuropathy, chronic back pain, atrial fibrillation, who presented to the emergency room yesterday morning with the complaint of GI bleeding with red blood per rectum.? She also had mid and upper abdominal pain, which has been fairly chronic.? She was noted to have some syncopal or presyncopal episodes in the ER waiting room, which responded to fluids and positional changes.? She was noted to be guaiac positive and had some rectal bleeding with red formed stool in the emergency room.? She also was noted to have evidence of dehydration and hyponatremia and hypokalemia, as well as increased lactate.? She was hydrated and improved today, as far as pain, was continuing to have some intermittent rectal bleeding.? Her hemoglobin has gradually decreased.? It initially was 11.0 on arrival.? It was down to 8.4 this morning and repeat at 4:00 p.m. was 7.8.? She did have a bowel movement with some small amount of blood in it prior to my evaluation.? Of note was that her hemoglobin was 13.2 back in October.? Patient did have a CT scan of the abdomen and pelvis during her workup yesterday in the emergency room, which revealed evidence of previous gastric bypass, which she had many years ago, but also distention of the disconnected stomach which was filled with fluid, possibly blood, as well as some thickening of the duodenum.? Patient has had previous episode of significant GI bleeding, according to her, approximately five years ago, which she presented to the hospital here, with a hemoglobin of around 5.5.? She required, what she reports, was 5 units of packed red blood cells.? She was transferred to [facility]? where she had upper and lower endoscopy that reported just revealed some small ulcerations in the gastric pouch.? There was a concern for possible ulcer disease in the remaining disconnected stomach.? No further pursuit of evaluation of this was done due to the difficulty in performing this.? Patient has had multiple abdominal surgeries including a hysterectomy, surgery for small bowel obstruction, the remote Linsey-en-Y gastric bypass, abdominoplasty.? She denies any NSAID use or aspirin use, is on no anti-coagulation.? ? PAST SURGICAL HISTORY:? As noted in the HPI.? She also had some extremity surgeries, which are not documented. FAMILY HISTORY:? Noncontributory. ? SOCIAL HISTORY:? Patient reports occasional alcohol, several times per month; is a former smoker, denies illicit drug use.? ? REVIEW OF SYSTEMS:? Ten system review of systems is negative for recent weight loss or weight gain.? She denies increased fatigue or light-headedness.? Has had no earache or tinnitus.? No sinus congestion.? No sore throat or hoarseness.? No chest pain, palpitations or syncope.? No chronic cough, shortness of breath or hemoptysis.? She has had the presyncopal episode.? She has had the abdominal pain, which has been chronic, as well as the rectal bleeding.? No nausea and vomiting.? No melena.? No dysuria, frequency, urgency or hematuria.? No headaches, seizures or tremors.? No easy bruising or bleeding.? No heat or cold intolerance.? No polydipsia, polyphagia or polyuria. ? PHYSICAL EXAM:? VITAL SIGNS:? Patient is afebrile.? Blood pressure is 100/60.? Pulse is 96 and regular.? Respiratory rate is 16.? O2 saturation is 90% on room air.? GENERAL:? In general, she is a pale female, in no acute distress. HEENT:? Normocephalic, atraumatic.? Sclerae anicteric.? Conjunctiva not injected.? Oral mucosa is moist without lesions. NECK:? Supple.? There is no adenopathy, thyromegaly or JVD. LUNGS:? Clear bilaterally.? CARDIAC EXAM:? Regular rhythm and rate without appreciable murmurs, rubs or gallops. ABDOMEN:? Soft.? There are hyperactive bowel sounds.? Currently non-tender with minimal distention.? There are no masses, hepatosplenomegaly or hernias noted.? No CVA tenderness.? SKIN:? Warm and dry without lesions, rashes or ulcers. NEURO EXAM:? Non-focal.? Non-lateralizing.? Patient is awake, alert, oriented with appropriate affect. ? IMAGING:? CT scan images were personally reviewed. ? ASSESSMENT:? 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 It is distended and there does appear to be thickening in the antrum and duodenum.? Overall, this is difficult to manage because it cannot be reached endoscopically.? ? RECOMMENDATIONS:? I would recommend transfer to a tertiary care center for management.? She may require laparoscopy and direct entrance into the stomach in order for further evaluation.? I would discontinue her DVT anticoagulation.? Just proceed with pneumatic compression devices to minimize any increased risks of bleeding.? She will likely require transfusion with the hemoglobin down to 7.8.? I would monitor this carefully.? ? Thank you for allowing me to participate in her care.? Please let me know if I can be of any further assistance.? ? Sincerely, ? ? Kenneth Flores M.D. RISSA/slava SNYDER
[2023-12-29] MEDS: ALPRAZOLAM 0.5 MG TABLET PO ×3 (05:42→21:25)
[2023-12-29] MEDS: PREGABALIN 100 MG CAPSULE 200 MG PO ×3 (05:42→21:26)
[2023-12-29] MEDS: METRONIDAZOLE/SODIUM CHLORIDE 500 MG/100 ML PREMIX 100 MG IV (05:42)
[2023-12-29] MEDS: OXYCODONE HCL 15 MG TABLET 30 MG PO ×5 (05:42→23:08)
[2023-12-29 05:46] LABS: Basophils Percent Auto 0.8 % (0.2-2.0); Eosinophils Absolute Auto 0.1 10^3/uL (0.0-0.7); Eosinophils Percent Auto 1.4 % (0.9-7.0); Hematocrit 25.1 % (36.0-48.0); Hemoglobin 8.4 g/dL (12.0-16.0); Immature Granulocytes Abs Auto 0.01 10^3/uL (0.00-0.03); Immature Granulocytes Pct Auto 0.2 % (0.0-0.5); Lymphocytes Absolute Auto 1.7 10^3/uL (1.2-3.8); Lymphocytes Percent Auto 35.1 % (20.5-60.0); Mean Corpuscular HGB Conc 33.5 g/dL (29.9-35.2); Mean Corpuscular Hemoglobin 36.2 pg (26.7-34.0); Mean Corpuscular Volume 108.2 fL (81.0-99.0); Mean Platelet Volume 9.5 fL (9.5-13.5); Monocytes Absolute Auto 0.6 10^3/uL (0.3-0.8); Monocytes Percent Auto 11.6 % (1.7-12.0); Neutrophils Absolute Auto 2.5 10^3/uL (1.4-6.5); Neutrophils Percent Auto 50.9 % (43.0-75.0); Platelet Count 204 10^3/uL (150-450); Red Blood Count 2.32 10^6/uL (4.20-5.40); Red Cell Distribution Width 15.1 % (11.0-15.0); White Blood Count 4.8 10^3/uL (4.0-11.0)
[2023-12-29 05:58] LABS: Alanine Aminotransferase 17 U/L (14-59); Albumin Globulin Ratio 0.7; Alkaline Phosphatase 166 U/L (46-116); Anion Gap 7.5; Aspartate Amino Transferase 30 U/L (15-37); BUN Creatinine Ratio 11.5; Bilirubin Total 0.4 mg/dL (0.2-1.0); Calcium 8.4 mg/dL (8.5-10.1); Carbon Dioxide 28.3 mmol/L (21.0-32.0); Chloride 104 mmol/L (98-107); Estimated GFR (African America >60 (>=60); Estimated GFR (Non-African Ame >60 (>=60); Globulin 2.8 g/dL; Glucose 91 mg/dL (74-106); Potassium 3.8 mmol/L (3.5-5.1); Sodium 136 mmol/L (136-145); Total Protein 4.8 g/dL (6.4-8.2)
--- NOTE | 2023-12-29 07:00 | US_ITS ---
The [address] [address] Patient Name: RASHID BOOTH MRN: [id number] date: 1970 Sex: F Assigned Patient Location: [place] Current Patient Location: Accession/Order Number: [id number] Exam Date: 12/29/2023 07:30 Report Date: 12/29/2023 08:38 At the request of: SHAIKH BRANDY Procedure: US right upper quadrant Ultrasound abdomen right upper quadrant HISTORY: abnormal GB thickening COMPARISON: None. TECHNIQUE: Dedicated transabdominal right upper quadrant ultrasound was performed. FINDINGS: The gallbladder is nondistended and without focal wall abnormality. There are small gallstones. No sludge is seen. The gallbladder wall measures 2 mm in thickness. No pericholecystic fluid is seen, and the sonographic De Paz's sign is negative. The proximal common bile duct measures 7 mm in diameter. There is no intrahepatic bile duct dilatation. Diffusely increased echogenicity of the liver is seen. Very poor sonographic penetration to the liver but no gross liver lesion identified. The pancreas is obscured by bowel gas and limited sonographic penetration through the echogenic liver. The right kidney measures 12.3 x 5.6 x 4.6 cm. There is no hydronephrosis in the right kidney. There is no fluid in the right upper quadrant. US/US right upper quadrant IMPRESSION: 1. Cholelithiasis without sonographic evidence of acute cholecystitis. 2. Normal caliber common bile duct at . 3. Right kidney without hydronephrosis. Electronically authenticated by: SURY JONES Date: 12/29/2023 08:38
[2023-12-29] MEDS: CEFTRIAXONE 1,000 MG in 0.9 % SODIUM CHLORIDE 50 ML 100 MG IV (08:28)
[2023-12-29] MEDS: SERTRALINE HCL 100 MG TABLET 200 MG PO (08:29)
[2023-12-29] MEDS: PANTOPRAZOLE SODIUM 40 MG VIAL IV ×2 (08:56→21:25)
[2023-12-29] MEDS: 0.9 % SODIUM CHLORIDE 1,000 ML 125 ML IV (09:11)
--- NOTE | 2023-12-29 09:17 | CM.NOTE ---
Rounds made with Dr. Goss, no discharge today. Consult general surgery today.
--- NOTE | 2023-12-29 09:39 | PM.IMPN1 ---
Progress Note: A&P Assessment and Plan (1) Syncope: Assessment and Plan: Likely because of hypovolemia from GI bleeding. No acute intracranial pathology on CT head. Continue with IV hydration for volume resuscitation. Monitor H&H. Qualifiers: Syncope type: unspecified Qualified Code(s): R55 - Syncope and collapse (2) Hyponatremia: Assessment and Plan: Likely because of hypovolemia. Resolved with IV hydration. Monitor. (3) Dehydration: Assessment and Plan: Improvement overnight IV hydration. Decrease IV normal saline to 100 mL/h (4) Bright red blood per rectum: Assessment and Plan: Likely lower GI bleed. Had another episode of dark red blood with the stools. Hemoglobin earlier this morning was 8.4. Her baseline hemoglobin is 12-13. Patient is not on any anticoagulation or chronic NSAIDs. She does not drink alcohol. On IV Protonix 40 twice daily. General surgery consulted. Monitor H&H every 8 hours. (5) Thickening of wall of gallbladder: Assessment and Plan: No evidence of cholecystitis. Cholelithiasis on ultrasound. Will discontinue Rocephin and Flagyl. (6) Lactic acid acidosis: Assessment and Plan: Resolved with IV hydration. Likely because of dehydration. (7) Afib: Assessment and Plan: In normal sinus rhythm. Not on anticoagulation for stroke prophylaxis because of prior history of GI Qualifiers: Atrial fibrillation type: paroxysmal Qualified Code(s): I48.0 - Paroxysmal atrial fibrillation (8) Peripheral neuropathy: Assessment and Plan: On Lyrica. Continue with same dose. Qualifiers: Peripheral neuropathy type: polyneuropathy, unspecified Qualified Code(s): G62.9 - Polyneuropathy, unspecified (9) Chronic bilateral back pain: Assessment and Plan: History of chronic low back pain, unchanged. Continue with home medications. Qualifiers: Back pain location: low back pain Sciatica laterality: bilateral sciatica Sciatica presence: with sciatica Qualified Code(s): M54.42 - Lumbago with sciatica, left side; M54.41 - Lumbago with sciatica, right side; G89.29 - Other chronic pain Internal Medicine - PN: Subj Subjective Interval history: Seen and examined. Patient subjectively feels better. Tolerating oral diet. Overnight had 1 bowel movement with dark red blood in it. Denies nausea, vomiting, abdominal pain, constipation, diarrhea. Exam Constitutional Vital Signs, click to edit/add: Last Vital Signs Temp 98.0 F 12/29/23 08:35 Pulse 86 12/29/23 08:35 Resp 16 12/29/23 08:36 BP 131/85 12/29/23 08:35 Pulse Ox 91 L 12/29/23 08:35 O2 Del Method Room Air 12/29/23 08:35 Documenting provider has reviewed patient's vital signs: yes Common normals: no apparent distress and oriented x3 General appearance: cooperative and comfortable Respiratory Common normals: normal respiratory effort and clear to auscultation bilaterally Effort & inspection: able to speak in complete sentences Auscultation: clear to auscultation bilaterally Cardio Common normals: regular rate, S1 normal heart sound and S2 normal heart sound Rate: regular rate Heart sounds: S1 normal and S2 normal GI Common normals: Normal to inspection, nondistended, normoactive bowel sounds present, soft to palpation, non-tender and no hepatosplenomegaly Palpation: soft and no hepatosplenomegaly Extremity Common normals: no clubbing, cyanosis or edema Neuro Common normals: oriented x3, moves all extremities and no focal motor deficits Psych Common normals: mental status grossly normal, denies hallucinations, denies homicidal ideation and denies suicidal ideation Internal Medicine - PN: Obj Da Labs Labs: Laboratory Results - last 24 hr 12/28/23 12/28/23 12/28/23 08:50 08:55 11:05 WBC RBC Hgb Hct MCV MCH MCHC RDW Plt Count MPV Neut % (Auto) Lymph % (Auto) [place] % (Auto) Eos % (Auto) Baso % (Auto) Neut # (Auto) Lymph # (Auto) [place] # (Auto) Eos # (Auto) Baso # (Auto) Abs Immat Gran (auto) Imm/Tot Granulo (auto) Sodium 124 L* Potassium 4.3 Chloride 89 L Carbon Dioxide 26.6 Anion Gap 12.7 BUN 11.0 Creatinine 0.79 Est GFR ( Amer) >60 Est GFR (Non-Af Amer) >60 BUN/Creatinine Ratio 13.9 Glucose 109 H Lactate 5.2 H* 2.1 H Calcium 8.7 Total Bilirubin 0.5 AST 45 H ALT 21 Alkaline Phosphatase 219 H Troponin I High Sens <4.0 L Total Protein 5.6 L Albumin 2.2 L Globulin 3.4 Albumin/Globulin Ratio 0.6 Urine Color Urine Clarity Urine pH Ur Specific [place] Urine Protein Urine Glucose (UA) Urine Ketones Urine Occult Blood Urine Nitrite Urine Bilirubin Urine Urobilinogen Ur Leukocyte Esterase Ur Random Creatinine Ur Random Sodium Stool Occult Blood Positive A Blood Type O Negative Antibody Screen Negative 12/28/23 12/28/23 12/28/23 12:50 16:11 22:00 WBC RBC Hgb 8.8 L 9.1 L Hct 25.6 L 27.1 L MCV MCH MCHC RDW Plt Count MPV Neut % (Auto) Lymph % (Auto) [place] % (Auto) Eos % (Auto) Baso % (Auto) Neut # (Auto) Lymph # (Auto) [place] # (Auto) Eos # (Auto) Baso # (Auto) Abs Immat Gran (auto) Imm/Tot Granulo (auto) Sodium 129 L 133 L Potassium 4.1 3.7 Chloride 97 L 101 Carbon Dioxide 24.8 25.4 Anion Gap 11.3 10.3 BUN 9.0 8.0 Creatinine 0.52 L 0.57 Est GFR ( Amer) >60 >60 Est GFR (Non-Af Amer) >60 >60 BUN/Creatinine Ratio 17.3 14.0 Glucose 87 102 Lactate Calcium 8.0 L 8.4 L Total Bilirubin AST ALT Alkaline Phosphatase Troponin I High Sens Total Protein Albumin Globulin Albumin/Globulin Ratio Urine Color Lt. yellow Urine Clarity Clear Urine pH 6.0 Ur Specific [place] <=1.005 A Urine Protein Negative Urine Glucose (UA) Negative Urine Ketones Negative Urine Occult Blood Negative Urine Nitrite Negative Urine Bilirubin Negative Urine Urobilinogen 0.2 Ur Leukocyte Esterase Negative Ur Random Creatinine <13.00 L Ur Random Sodium 13 L Stool Occult Blood Blood Type Antibody Screen 12/29/23 05:09 WBC 4.8 RBC 2.32 L Hgb 8.4 L Hct 25.1 L MCV 108.2 H MCH 36.2 H MCHC 33.5 RDW 15.1 H Plt Count 204 MPV 9.5 Neut % (Auto) 50.9 Lymph % (Auto) 35.1 [place] % (Auto) 11.6 Eos % (Auto) 1.4 Baso % (Auto) 0.8 Neut # (Auto) 2.5 Lymph # (Auto) 1.7 [place] # (Auto) 0.6 Eos # (Auto) 0.1 Baso # (Auto) 0.0 Abs Immat Gran (auto) 0.01 Imm/Tot Granulo (auto) 0.2 Sodium 136 Potassium 3.8 Chloride 104 Carbon Dioxide 28.3 Anion Gap 7.5 BUN 6.0 L Creatinine 0.52 L Est GFR ( Amer) >60 Est GFR (Non-Af Amer) >60 BUN/Creatinine Ratio 11.5 Glucose 91 Lactate Calcium 8.4 L Total Bilirubin 0.4 AST 30 ALT 17 Alkaline Phosphatase 166 H Troponin I High Sens Total Protein 4.8 L Albumin 2.0 L Globulin 2.8 Albumin/Globulin Ratio 0.7 Urine Color Urine Clarity Urine pH Ur Specific [place] Urine Protein Urine Glucose (UA) Urine Ketones Urine Occult Blood Urine Nitrite Urine Bilirubin Urine Urobilinogen Ur Leukocyte Esterase Ur Random Creatinine Ur Random Sodium Stool Occult Blood Blood Type Antibody Screen
[2023-12-29 16:19] LABS: Hemoglobin 7.8 g/dL (12.0-16.0)
[2023-12-29] MEDS: ENOXAPARIN SODIUM 40 MG/0.4 ML SYRINGE SUBQ (16:25)
[2023-12-29 16:39] LABS: Hematocrit 23.9 % (36.0-48.0)
--- NOTE | 2023-12-29 18:18 | P.GSCN_ITS ---
History of Present Illness Consult details Consult date: 12/29/23 Requesting physician: Shaikh Ana Paula Narrative: patient seen/examined/chart and abd images reviewed/consult dictated; 53 yo female with multiple medical problems, remote maame en Y gastric bypass, pres ented to ED yesterday with rectal bleeding and abd pain, had presyncopal episode in ED; hb initially 11, now down to 7.8; intermittent red blood with bms; no N/V; had episode 5 years ago of GI bleeding that required 5 U PRBCs and transfer to [facility]; were concerned with possible ulcer in disconnected stomach, but unable to evaluate; patient was on regular diet, just switched to clears; recommend discontinuing anticoagulation for DVT prophylaxis, use SCDs; recheck hb in 4 hours, will likely require transfusion; will require transfer to tertiary care center for further treatment, may need angiography verses laparoscopy. [facility] Medical History (Updated 12/28/23 @ 12:13 by Damaris Coffey DO) Peripheral neuropathy ?G62.9 - Polyneuropathy, unspecified (ICD-10) Chronic bilateral back pain ?M54.9 - Dorsalgia, unspecified (ICD-10) ?G89.29 - Other chronic pain (ICD-10) Afib ?I48.91 - Unspecified atrial fibrillation (ICD-10) Aortic aneurysm ?I71.9 - Aortic aneurysm of unspecified site, without rupture (ICD-10) GI bleed ?K92.2 - Gastrointestinal hemorrhage, unspecified (ICD-10) Surgical History (Updated 11/10/23 @ 09:59 by Gabrielle Donaldson RN) Status post abdominoplasty ?Z98.890 - Other specified postprocedural states (ICD-10) Status post abdominoplasty ?Z98.890 - Other specified postprocedural states (ICD-10) H/O hysterectomy with oophorectomy H/O: hysterectomy ?Z90.710 - Acquired absence of both cervix and uterus (ICD-10) Gastric bypass status for obesity ?Z98.84 - Bariatric surgery status (ICD-10) Family History (Updated 12/28/23 @ 11:58 by Armida Serra) Mother Family history of cancer Family history of hypertension Social History (Updated 12/28/23 @ 12:02 by Armida Serra) Within the past year, how often did you have a drink containing alcohol: 2-4 times a month Within the past year, how often did you have six or more drinks on one occasion: never Smoking status: Former smoker Non-prescribed substance use: denies use Previous occupational history: disabled Highest level of school completed/degree received: Master's degree Are you now , , , , never or living with a partner: Little interest or pleasure in doing things: more than half the days Feeling down, depressed, or hopeless: several days Feel stressed/tense/nervous/anxious/difficulty sleeping: rather much Life stressor details: medical condition Meds Home Medications and Allergies Home Medications ?Medication ?Instructions ?Recorded ?Confirmed ?Type pregabalin 200 mg capsule 200 mg PO TID 09/03/23 12/28/23 History sertraline 100 mg tablet 200 mg PO DAILY 09/03/23 12/28/23 History amitriptyline 75 mg tablet 75 mg PO .qhs 12/28/23 12/28/23 History Allergies Allergy/AdvReac Type Severity Reaction Status Date / Time NSAIDS (Non-Steroidal Allergy Intermediate Verified 11/10/23 09:36 Anti-Inflamma Exam Constitutional Vital Signs, click to edit/add: Last Vital Signs Temp 98.0 F 12/29/23 15:38 Pulse 96 H 12/29/23 17:25 Resp 16 12/29/23 15:38 BP 95/61 12/29/23 15:38 Pulse Ox 92 L 12/29/23 15:38 O2 Del Method Room Air 12/29/23 15:38 Results Labs Labs: Abnormal lab results 12/28/23 12/29/23 12/29/23 Range/Units 22:00 05:09 16:11 RBC 2.32 L (4.20-5.40) 10^6/uL Hgb 9.1 L 8.4 L 7.8 L (12.0-16.0) g/dL Hct 27.1 L 25.1 L 23.9 L* (36.0-48.0) % MCV 108.2 H (81.0-99.0) fL MCH 36.2 H (26.7-34.0) pg RDW 15.1 H (11.0-15.0) % Sodium 133 L (136-145) mmol/L BUN 6.0 L (7.0-18.0) mg/dL Creatinine 0.52 L (0.55-1.02) mg/dL Calcium 8.4 L 8.4 L (8.5-10.1) mg/dL Alkaline Phosphatase 166 H (46-116) U/L Total Protein 4.8 L (6.4-8.2) g/dL Albumin 2.0 L (3.4-5.0) g/dL Diabetes panel 12/28/23 12/29/23 Range/Units 22:00 05:09 Sodium 133 L 136 (136-145) mmol/L Potassium 3.7 3.8 (3.5-5.1) mmol/L Chloride 101 104 (98-107) mmol/L Carbon Dioxide 25.4 28.3 (21.0-32.0) mmol/L BUN 8.0 6.0 L (7.0-18.0) mg/dL Creatinine 0.57 0.52 L (0.55-1.02) mg/dL Glucose 102 91 (74-106) mg/dL Calcium 8.4 L 8.4 L (8.5-10.1) mg/dL AST 30 (15-37) U/L ALT 17 (14-59) U/L Alkaline Phosphatase 166 H (46-116) U/L Total Protein 4.8 L (6.4-8.2) g/dL Albumin 2.0 L (3.4-5.0) g/dL Calcium panel 12/28/23 12/29/23 Range/Units 22:00 05:09 Calcium 8.4 L 8.4 L (8.5-10.1) mg/dL Albumin 2.0 L (3.4-5.0) g/dL Pituitary panel 12/28/23 12/29/23 Range/Units 22:00 05:09 Sodium 133 L 136 (136-145) mmol/L Potassium 3.7 3.8 (3.5-5.1) mmol/L Chloride 101 104 (98-107) mmol/L Carbon Dioxide 25.4 28.3 (21.0-32.0) mmol/L BUN 8.0 6.0 L (7.0-18.0) mg/dL Creatinine 0.57 0.52 L (0.55-1.02) mg/dL Glucose 102 91 (74-106) mg/dL Calcium 8.4 L 8.4 L (8.5-10.1) mg/dL Adrenal panel 12/28/23 12/29/23 Range/Units 22:00 05:09 Sodium 133 L 136 (136-145) mmol/L Potassium 3.7 3.8 (3.5-5.1) mmol/L Chloride 101 104 (98-107) mmol/L Carbon Dioxide 25.4 28.3 (21.0-32.0) mmol/L BUN 8.0 6.0 L (7.0-18.0) mg/dL Creatinine 0.57 0.52 L (0.55-1.02) mg/dL Glucose 102 91 (74-106) mg/dL Calcium 8.4 L 8.4 L (8.5-10.1) mg/dL Total Bilirubin 0.4 (0.2-1.0) mg/dL AST 30 (15-37) U/L ALT 17 (14-59) U/L Alkaline Phosphatase 166 H (46-116) U/L Total Protein 4.8 L (6.4-8.2) g/dL Albumin 2.0 L (3.4-5.0) g/dL All other labs normal. Assessment and Plan Assessment and Plan (1) Syncope: Qualifiers: Syncope type: unspecified Qualified Code(s): R55 - Syncope and collapse (2) Hyponatremia: (3) Dehydration: (4) Bright red blood per rectum: (5) Thickening of wall of gallbladder: (6) Lactic acid acidosis: (7) Afib: Qualifiers: Atrial fibrillation type: paroxysmal Qualified Code(s): I48.0 - Paroxysmal atrial fibrillation (8) Peripheral neuropathy: Qualifiers: Peripheral neuropathy type: polyneuropathy, unspecified Qualified Code(s): G62.9 - Polyneuropathy, unspecified (9) Chronic bilateral back pain: Qualifiers: Back pain location: low back pain Sciatica presence: with sciatica Sciatica laterality: bilateral sciatica Qualified Code(s): M54.42 - Lumbago with sciatica, left side; M54.41 - Lumbago with sciatica, right side; G89.29 - Other chronic pain
[2023-12-29] MEDS: 0.9 % SODIUM CHLORIDE 1,000 ML 100 ML IV ×2 (18:38→23:09)
[2023-12-29] MEDS: AMITRIPTYLINE HCL 25 MG TABLET 75 MG PO (21:25)
--- NOTE | 2023-12-29 21:53 | PC.NURSE ---
[facility] calls regarding a transfer of pt that was started by Dr Leal. requesting demographic information to work on the transfer. Demographics sent to [phone]
[2023-12-29 22:46] LABS: Hematocrit 24.3 % (36.0-48.0); Hemoglobin 8.1 g/dL (12.0-16.0)
[2023-12-30] VITALS (22 sets, daily range): BP systolic 110–161; BP diastolic 76–103; PULSE 81–122; TEMP 36.4–36.8; O2SAT 90–95
[2023-12-30] MEDS: ALPRAZOLAM 0.5 MG TABLET PO ×3 (03:44→13:27)
[2023-12-30] MEDS: OXYCODONE HCL 15 MG TABLET 30 MG PO ×3 (03:44→13:27)
[2023-12-30] MEDS: PREGABALIN 100 MG CAPSULE 200 MG PO ×2 (05:54→13:27)
--- NOTE | 2023-12-30 06:00 | PC.NURSE ---
update on bed assignment. Pt does not have a bed assignment yet.
[2023-12-30 06:37] LABS: Basophils Percent Auto 0.7 % (0.2-2.0); Eosinophils Absolute Auto 0.1 10^3/uL (0.0-0.7); Eosinophils Percent Auto 2.7 % (0.9-7.0); Hemoglobin 7.4 g/dL (12.0-16.0); Immature Granulocytes Abs Auto 0.01 10^3/uL (0.00-0.03); Immature Granulocytes Pct Auto 0.2 % (0.0-0.5); Lymphocytes Absolute Auto 1.3 10^3/uL (1.2-3.8); Lymphocytes Percent Auto 32.9 % (20.5-60.0); Mean Corpuscular HGB Conc 33.2 g/dL (29.9-35.2); Mean Corpuscular Hemoglobin 35.4 pg (26.7-34.0); Mean Corpuscular Volume 106.7 fL (81.0-99.0); Mean Platelet Volume 9.4 fL (9.5-13.5); Monocytes Absolute Auto 0.3 10^3/uL (0.3-0.8); Monocytes Percent Auto 7.9 % (1.7-12.0); Neutrophils Absolute Auto 2.2 10^3/uL (1.4-6.5); Neutrophils Percent Auto 55.6 % (43.0-75.0); Platelet Count 175 10^3/uL (150-450); Red Blood Count 2.09 10^6/uL (4.20-5.40)
[2023-12-30 06:57] LABS: Alanine Aminotransferase 18 U/L (14-59); Albumin Globulin Ratio 0.7; Albumin Level 1.9 g/dL (3.4-5.0); Alkaline Phosphatase 149 U/L (46-116); Anion Gap 11.6; Aspartate Amino Transferase 34 U/L (15-37); BUN Creatinine Ratio 2.4; Bilirubin Total 0.3 mg/dL (0.2-1.0); Blood Urea Nitrogen <1.0 mg/dL (7.0-18.0); Calcium 8.3 mg/dL (8.5-10.1); Carbon Dioxide 25.6 mmol/L (21.0-32.0); Chloride 107 mmol/L (98-107); Estimated GFR (African America >60 (>=60); Estimated GFR (Non-African Ame >60 (>=60); Globulin 2.6 g/dL; Glucose 85 mg/dL (74-106); Potassium 3.2 mmol/L (3.5-5.1); Sodium 141 mmol/L (136-145); Total Protein 4.5 g/dL (6.4-8.2)
[2023-12-30 07:21] LABS: Hematocrit 22.3 % (36.0-48.0)
[2023-12-30] MEDS: SERTRALINE HCL 100 MG TABLET 200 MG PO (08:56)
[2023-12-30] MEDS: POTASSIUM CHLORIDE 10 MEQ ER TABLET 40 MEQ PO (08:57)
--- NOTE | 2023-12-30 09:02 | REH.PTDLY ---
Physical Therapy Daily Note PT Daily Note/Assess Start: 12/30/23 08:59 Freq: Status: Active Protocol: Document 12/30/23 08:59 COLIN (Rec: 12/30/23 09:01 COLIN [id number]) Visit Not Completed Visit Not Completed Due to: Pt refusing Other Reason Visit Not Completed Pt declines getting up today. States There is no point, I'm running on a half tank of gas , I'm getting a pint of blood today. No point in coming back later either because I am not getting up or doing anything today Physical Therapy Daily Note/Assessment Time In 08:56 Time Out 08:59
[2023-12-30] MEDS: 0.9 % SODIUM CHLORIDE 250 ML 10 ML IV (10:14)
[2023-12-30] MEDS: PANTOPRAZOLE SODIUM 40 MG VIAL IV (10:37)
--- NOTE | 2023-12-30 10:55 | CM.NOTE ---
Rounds made with Dr. Goss, discussed with pt about need for transfer to higher level of care d/t drop in Hgb. Pt in agreement for transfer to [facility]. Pt will receive 1 unit PRBC's today.
--- NOTE | 2023-12-30 11:49 | P.IMPN_ITS ---
Progress Note: A&P Assessment and Plan (1) Syncope: Assessment and Plan: Likely because of hypovolemia from GI bleeding. No acute intracranial pathology on CT head. Blood pressure is stable. Stop IV fluids. Patient has good p.o. intake. Qualifiers: Syncope type: unspecified Qualified Code(s): R55 - Syncope and collapse (2) Hyponatremia: Assessment and Plan: Likely because of hypovolemia. Resolved with IV hydration. Monitor. (3) Dehydration: Assessment and Plan: Improvement overnight IV hydration. Discontinue IV fluids. (4) Bright red blood per rectum: Assessment and Plan: Likely lower GI bleed. Hemoglobin down to 7.2. Baseline hemoglobin is 12-13. Continues to have 1-2 episodes of stool with dark black blood in it. Ordered 1 unit packed red blood cell transfusion. Repeat H&H every 8 hour. General surgery consulted who recommended transfer to [facility] because of her prior history of gastric bypass. Patient accepted for transferred under hospitalist service at [facility] in [place]. Awaiting bed availability (5) Thickening of wall of gallbladder: Assessment and Plan: No evidence of cholecystitis. Cholelithiasis on ultrasound. Will discontinue Rocephin and Flagyl. (6) Lactic acid acidosis: Assessment and Plan: Resolved with IV hydration. Likely because of dehydration. (7) Afib: Assessment and Plan: In normal sinus rhythm. Not on anticoagulation for stroke prophylaxis because of prior history of GI Qualifiers: Atrial fibrillation type: paroxysmal Qualified Code(s): I48.0 - Paroxysmal atrial fibrillation (8) Peripheral neuropathy: Assessment and Plan: On Lyrica. Continue with same dose. Qualifiers: Peripheral neuropathy type: polyneuropathy, unspecified Qualified Code(s): G62.9 - Polyneuropathy, unspecified (9) Chronic bilateral back pain: Assessment and Plan: History of chronic low back pain, unchanged. Continue with home medications. Qualifiers: Back pain location: low back pain Sciatica presence: with sciatica Sciatica laterality: bilateral sciatica Qualified Code(s): M54.42 - Lumbago with sciatica, left side; M54.41 - Lumbago with sciatica, right side; G89.29 - Other chronic pain Plan Continue with close hemodynamic monitoring. Continue to have downtrending hemoglobin. Will need transfusion today. Monitor H&H every 8 hour. Patient is accepted for transfer at [facility] and is awaiting for bed availability Internal Medicine - PN: Subj Subjective Interval history: Seen and examined. Patient subjectively feels better. Tolerating oral diet. Since last seen, she had 1 bowel movement with bright blood in it. Hemoglobin earlier today 7.2. No overnight events otherwise Exam Constitutional Vital Signs, click to edit/add: Last Vital Signs Temp 97.9 F 12/30/23 11:26 Pulse 88 12/30/23 11:26 Resp 16 12/30/23 11:26 BP 121/82 12/30/23 11:26 Pulse Ox 91 L 12/30/23 11:26 O2 Del Method Room Air 12/30/23 11:26 Documenting provider has reviewed patient's vital signs: yes Common normals: no apparent distress and oriented x3 General appearance: cooperative and comfortable Respiratory Common normals: normal respiratory effort and clear to auscultation bilaterally Effort & inspection: able to speak in complete sentences Auscultation: clear to auscultation bilaterally Cardio Common normals: regular rate, S1 normal heart sound and S2 normal heart sound Rate: regular rate Heart sounds: S1 normal and S2 normal Neuro Common normals: oriented x3, moves all extremities and no focal motor deficits Psych Common normals: mental status grossly normal, denies hallucinations, denies homicidal ideation and denies suicidal ideation Internal Medicine - PN: Obj Da Labs Labs: Laboratory Results - last 24 hr 12/28/23 12/29/23 12/29/23 08:50 16:11 22:39 WBC RBC Hgb 7.8 L 8.1 L Hct 23.9 L* 24.3 L MCV MCH MCHC RDW Plt Count MPV Neut % (Auto) Lymph % (Auto) [place] % (Auto) Eos % (Auto) Baso % (Auto) Neut # (Auto) Lymph # (Auto) [place] # (Auto) Eos # (Auto) Baso # (Auto) Abs Immat Gran (auto) Imm/Tot Granulo (auto) Sodium Potassium Chloride Carbon Dioxide Anion Gap BUN Creatinine Est GFR ( Amer) Est GFR (Non-Af Amer) BUN/Creatinine Ratio Glucose Calcium Total Bilirubin AST ALT Alkaline Phosphatase Total Protein Albumin Globulin Albumin/Globulin Ratio Blood Type O Negative Antibody Screen Negative Crossmatch See Detail 12/30/23 05:17 WBC 4.0 RBC 2.09 L Hgb 7.4 L Hct 22.3 L* MCV 106.7 H MCH 35.4 H MCHC 33.2 RDW 15.0 Plt Count 175 MPV 9.4 L Neut % (Auto) 55.6 Lymph % (Auto) 32.9 [place] % (Auto) 7.9 Eos % (Auto) 2.7 Baso % (Auto) 0.7 Neut # (Auto) 2.2 Lymph # (Auto) 1.3 [place] # (Auto) 0.3 Eos # (Auto) 0.1 Baso # (Auto) 0.0 Abs Immat Gran (auto) 0.01 Imm/Tot Granulo (auto) 0.2 Sodium 141 Potassium 3.2 L Chloride 107 Carbon Dioxide 25.6 Anion Gap 11.6 BUN <1.0 L Creatinine 0.41 L Est GFR ( Amer) >60 Est GFR (Non-Af Amer) >60 BUN/Creatinine Ratio 2.4 Glucose 85 Calcium 8.3 L Total Bilirubin 0.3 AST 34 ALT 18 Alkaline Phosphatase 149 H Total Protein 4.5 L Albumin 1.9 L Globulin 2.6 Albumin/Globulin Ratio 0.7 Blood Type Antibody Screen Crossmatch
--- NOTE | 2023-12-30 13:34 | OT.DAILY ---
Occupational Therapy Daily Note OT Inpatient Daily Visit Note Start: 12/29/23 10:30 Freq: Status: Active Protocol: Document 12/30/23 13:32 [id number] (Rec: 12/30/23 13:34 [id number]) Visit Not Completed Visit Not Completed Visit Not Completed Due to: Pt refusing Other Reason Visit Not Completed Transfer to [facility] Pt states I really don't need you today I am leaving soon. Denies needs for self care tasks or clothing management. Family in room assisting with personal belongings. OT Visit Details Time In/Time Out Time In 13:30 Time Out 13:35 GG. Functional Abilities and Goals-Complete for Swing Bed Patients Only [id number]. Self-Care [id number]. Mobility
[2023-12-30 16:25] LABS: Hematocrit 35.2 % (36.0-48.0); Hemoglobin 11.8 g/dL (12.0-16.0)
[2023-12-31 13:08] LABS: Osmolality, Urine 161 mOsmol/kg (.)
== END 2023-12-30 16:43 | disposition short-term general hospital (02) | DRG 378 ==
LOC: ER 11:39 → MS 11:45
PROVIDERS: Admitting Provider Internal Medicine; Emergency Provider Emergency Medicine; PCP Family Medicine; Visit Provider Internal Medicine
DX: K92.2 Gastrointestinal hemorrhage, unspecified (principal); E87.1 Hypo-osmolality and hyponatremia; E87.20 Acidosis, unspecified; R55 Syncope and collapse; E87.6 Hypokalemia; E86.0 Dehydration; K82.9 Disease of gallbladder, unspecified; I48.0 Paroxysmal atrial fibrillation; G62.9 Polyneuropathy, unspecified; M54.42 Lumbago with sciatica, left side; G89.29 Other chronic pain; K80.20 Calculus of gallbladder without cholecystitis without obstruction; E86.1 Hypovolemia; Z98.84 Bariatric surgery status; Z87.891 Personal history of nicotine dependence; Z74.01 Bed confinement status; Z90.710 Acquired absence of both cervix and uterus; Z79.899 Other long term (current) drug therapy
CPT/HCPCS: 36415; 36430; 70450; 71045; 74177; 76705; 80048; 80053; 81003; 82570; 83605; 83935; 84300; 84484; 85014; 85018; 85025; 85610; 86850; 86900; 86901; 87040; 93005; 94761; 96361; 96365; 96366; 96367; 96368; 96372; 96375; 96376; 97161; 97165; 99285; G0328; J0696; J1650; J1836; J2543; J3370; P9016; Q9967

== ENCOUNTER 2024-01-06 07:06 | Emergency (ER) | payer OTHER, MEDICARE, SELFPAY ==
[2024-01-06] VITALS (14 sets, daily range): BP systolic 59–82; BP diastolic 43–57; PULSE 90–104; TEMP 36.6; O2SAT 90–99; BMI 22.4
--- NOTE | 2024-01-06 07:14 | XR_ITS ---
The [address] [address] Patient Name: RASHID BOOTH MRN: [id number] date: 1970 Sex: F Assigned Patient Location: ER Current Patient Location: ED.MAIN Accession/Order Number: [id number] Exam Date: 01/06/2024 07:51 Report Date: 01/06/2024 08:06 At the request of: NBA OLIVIA Procedure: XR chest 1V EXAMINATION: XR chest 1V HISTORY: GI bleed COMPARISON: 12/28/2023 TECHNIQUE: AP portable FINDINGS: LUNGS: No significant pulmonary parenchymal abnormalities. VASCULATURE: No increased pulmonary vasculature. PLEURA: No pneumothorax, effusion, or pleural thickening. CARDIAC: No cardiomegaly or cardiac silhouette abnormality. MEDIASTINUM: No visible mass or adenopathy. BONES: No fracture or visible bone lesion. OTHER: Negative. XR/XR chest 1V IMPRESSION: No acute radiographic abnormality Electronically authenticated by: TUYET JONES Date: 01/06/2024 08:06
--- NOTE | 2024-01-06 07:14 | ECG_ITS ---
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
--- OUTSIDE RECORDS SUMMARY | 2024-01-06 07:23 | XMS_ITS | CCD ---
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 Unavailable Unavailable MAUREEN MITCHELL Unavailable Unavailable REJI, [...] CHONG Valverde Attending Unavailabl e REINECK, DR HCONG Valverde Consulting Unavailabl e REINECK, DR CHONG [...] MITCHELL, DR MAUREEN Morales Primary Care Unavailable NILTara, Ibrahima Willis Attending Unavailable Maureen Mitchell Unavailable Otoniel Kelly Unavailable Maureen Mitchell MD Primary Care Provider Maureen Mitchell MD Primary Care Provider Quan Hunter MD Unavailable ABIOSE, QUAN K Attending Unavailable MAUREEN MITCHELL Primary Care Unavailable ABIOSE, QUAN K Attending Unavailable MAUREEN MITCHELL E Primary Care Unavailable DOROTHY SANTORO Attending Unavailable APLINGDOROTHY Referring Unavailable APLDOROTHY WOODS Referring Unavailable DARLENE GONZALEZ Attending Unavailable DARLENE GONZALEZ Referring Unavailable DARLENE GONZALEZ Referring Unavailable ABIOSE, QUAN K Referring Unavailable MITCHELLMAUREEN E Primary Care Unavailable ABIOSE, QUAN K Referring Unavailable MITCHELLMAUREEN E Primary Care Unavailable SHAIKH NAVA Referring Unavailable MAUREEN MITCHELL Primary Care Unavailable SANDY RODGERS Consulting Unavailable KELI RABAGO Attending Unavailable AVASTHI, NIA Admitting Unavailable MALLY HOPPER Consulting Unavailable MICHAEL ARELLANO [facility]ing [facility] MARGARET Christianson Consulting Unavailable AVASTHI, NIA Consulting Unavailable Allergies Allergy Classification Reported Allergen(s) Allergy Type Date of Onset Reaction(s) Facility Acetaminophen (1 source) Acetaminophen Drug Allergy 09-22-19 24 [facility] Opioid Agonists (1 source) Codeine Drug Allergy 09-22-19 24 [facility] Sulfonamides (antibiotic) (1 source) Sulfonamides (Antibiotic) Drug Allergy 09-22-19 24 [facility] venlafaxine (1 source) venlafaxine Drug Allergy 09-22-19 24 [facility] (20 sources) Non-steroidal anti-inflammator y agent; Translations: [NSAIDs] Drug allergy Unknown (qualifier value) General Surgery Karyn (2 sources) Sulfonamides (Antibiotic); Translations: [sulfa drugs] Drug allergy Unknown (qualifier value) General Surgery Karyn (20 sources) venlafaxine; Translations: [venlafaxine] Drug Allergy 07-16-19 19 Unknown (qualifier value), Unknown General Surgery Karyn (4 sources) NSAIDs; Translations: [NSAIDS (NON-STEROIDAL ANTI-INFLAMMATOR Y DRUG)] Drug allergy (disorder) 09-06-19 16 [facility] Repository (1 source) Tylenol-Codeine #3 Drug allergy (disorder) 01-23-20 16 [facility] Repository (20 sources) Codeine; Translations: [codeine] Drug Allergy 06-09-19 14 Other [facility] Repository (20 sources) Acetaminophen / Codeine Drug Allergy Unknown [employer] Other (18 sources) Sulfonamides (Antibiotic) Drug allergy Unknown [employer] Other (16 sources) Codeine Drug Allergy Unknown [employer] Other (4 sources) patient allergy list reviewed by nurse or physicia Propensity to adverse reactions 06-09-19 14 Comment:Done [employer] Other (4 sources) Allergies Reconciled Propensity to adverse reactions Unknown [employer] Other (16 sources) Sulf-10 Drug allergy Unknown [employer] Other (8 sources) cow milk allergenic extract; Translations: [MILK] Drug Allergy 12-11-19 23 [facility] Work Phone: (6 sources) Non-steroidal anti-inflammator y agent Drug Intolerance 09-06-19 16 Other [facility] Work Phone: (2 sources) VENLAFAXINE ANALOGUES; Translations: [VENLAFAXINE ANALOGUES] Propensity to adverse reactions to drug (disorder) 10-06-19 21 [facility] 3 Repository (5 sources) Acetaminophen Drug Allergy 08-26-19 24 [facility] (5 sources) Sulfonamides (Antibiotic) Allergy to substance 08-26-19 24 [facility] (6 sources) NSAIDS (Non-Steroidal Anti-Inflamma Allergy to substance 08-26-19 24 [facility] Medications Current Medications Medication Drug Class(es) Dates [...] Taking; Refills: 1; Qty: 20 Tablet; Provider: Stephen Morales Start: 04-01-2023 eletriptan (Re lpax) 40 [...] Taking; Refills: 1; Qty: 180 Tablet; Provider: Stephen Morales Start: 05-02-2023 take 1 tablet by [...] Taking; Refills: 3; Qty: 30 Tablet; Provider: Stephen Trayolr ( ) Start: 11-14-2021 take 1 tablet [...] 11:41am Start: 03-10-2023 take 1 capsule by [facility] two times weekly cholecalciferol (Vitamin D-3) 50,000 unit capsule Take 1 capsule (50,000 Units) by mouth 2 times a week. 0 03/10/2023 Active take 1 capsule by [facility] two times weekly Vitamin D3 1.25 MG (62339 UT) TAKE 1 CAPSULE BY MOUTH TWICE [...] 12:17pm Start: 05-01-2023 take 1 tablet by [facility] every four hours oxyCODONE (Roxicodone) 30 mg [...] 200 MG PO Three times daily 90 30 July 23, 2023 2:07pm September 02, 2023 8:50am Start: 11-14-2021 take 1 capsule by mo [facility] three times daily Lyrica 200 MG 1 [...] 11-14-2021 Episodic Gastrointestinal hemorrhage (20 sources) Gastrointestinal hemorrhage; Translations: [Gastrointestinal hemorrhage, unspecified] Onset: 8 Episodic Headache; including migraine (20 [...] 11-14-2021 Chronic Other aftercare (3 sources) 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; Translations: [OTH PRISON CURRENT DRUG THERAPY] Onset: 2 Episodic Other [...] Translations: [Nicotine dependence] Onset: 9 05-27-2023 Chronic Syncope (1 source) Syncope and collapse; Translations: [Syncope and collapse] Onset: Episodic Past or Other Problems Problem Classification Problem [...] Onset: 01-04-2016 Episodic Other aftercare (1 source) 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; Translations: [PRISON CURRENT USE OF ASPIRIN] Onset: 11-06-2021 Episodic [...] Test Name Value Interpretation Reference Range Facility Basic Metabolic Profon 01-04 Anion gap [Moles/Vol] 9 mmol/L Normal 9-16 [facility] Comment on above: Performed By: #### H H #### [place] [address] [employer] Research Worker: Tato Ibarra MD Calcium [Mass/Vol] 8.0 mg/dL Low 8.6-10.4 [facility] Comment on above: Performed By: #### H H #### [place] [address] [employer] Research Worker: Tato Ibarra MD Chloride [Moles/Vol] 103 mmol/L Normal 98-107 [facility] Comment on above: Performed By: #### H H #### [place] [address] [employer] Research Worker: Tato Ibarra MD CO2 [Moles/Vol] 27 mmol/L Normal 20-31 [facility] Comment on above: Performed By: #### H H #### [place] [address] [employer] Research Worker: Tato Ibarra MD Creatinine [Mass/Vol] 0.3 mg/dL Low 0.50-0.90 [facility] Comment on above: Performed By: #### H H #### [facility] [address] [place] [address] [employer] Research Worker: Tato Ibarra MD GFR/1.73 sq M.predicted among non-blacks MDRD (S/P/Bld) [Vol rate/Area] mL/min/{1.73_m2} Normal >60 [facility] Comment on above: Result Comment: These results are not intended for use in patients <18 years of age. eGFR results are calculated without a race factor using the 2020 CKD-EPI equation. Careful clinical correlation is recommended, particularly when comparing to results calculated using previous equations. The CKD-EPI equation is less accurate in patients with extremes of muscle mass, extra-renal metabolism of creatine, excessive creatine ingestion, or following therapy that affects renal tubular secretion. Performed By: #### H H #### [address] [address] [employer] Research Worker: Tato Ibarra MD Glucose [Mass/Vol] 85 mg/dL Normal 74-99 [facility] Comment on above: Performed By: #### H H #### [facility] [employer] [address] [place] [address] [employer] Research Worker: Tato Ibarra MD Potassium [Moles/Vol] 2.8 mmol/L Critically low 3.7-5.3 [facility] Comment on above: Performed By: #### H H #### [facility] [employer] [address] [place] [address] [employer] Research Worker: Tato Ibarra MD Sodium [Moles/Vol] 139 mmol/L Normal 136-145 [facility] Comment on above: Performed By: #### H H #### [facility] [employer] [address] [place] [address] [employer] Research Worker: Tato Ibarra MD Urea nitrogen [Mass/Vol] 3 mg/dL Low 6-20 [facility] Comment on above: Performed By: #### H H #### [facility] [address] [place] [address] [employer] Research Worker: Tato Ibarra MD CBC with Diffon 01-05-2024 Abs. Basophil <0.03 Normal 0.00-0.20 [facility] Comment on above: Performed By: #### H H #### [place] [address] [employer] Research Worker: Tato Ibarra MD Abs.Imm.Granulocyte <0.03 Normal 0.00-0.30 [facility] Comment on above: Performed By: #### H H #### [place] [address] [employer] Research Worker: Tato Ibarra MD Abs.Neutrophil (Seg) 3.15 k/uL Normal 1.50-8.10 [facility] Comment on above: Performed By: #### H H #### [place] [address] [employer] Research Worker: Tato Ibarra MD Basophils/100 WBC (Bld) 0 % Normal 0-2 [facility] Comment on above: Performed By: #### H H #### [place] [address] [employer] Research Worker: Tato Ibarra MD Eosinophils (Bld) [#/Vol] 0.08 10*3/uL Normal 0.00-0.44 [facility] Comment on above: Performed By: #### H H #### [place] [address] [employer] Research Worker: Tato Ibarra MD Eosinophils/100 WBC (Bld) 2 % Normal 1-4 [facility] Comment on above: Performed By: #### H H #### [place] [address] [employer] Research Worker: Tato Ibarra MD Erythrocyte distribution width (RBC) [Ratio] 19.8 % High 11.8-14.4 [facility] Comment on above: Performed By: #### H H #### [address] [address] [employer] Research Worker: Tato Ibarra MD Hematocrit (Bld) [Volume fraction] 27.3 % Low 36.3-47.1 [facility] Comment on above: Performed By: #### H H #### [address] [address] [employer] Research Worker: Tato Ibarra MD Hemoglobin (Bld) [Mass/Vol] 8.5 g/dL Low 11.9-15.1 [facility] Comment on above: Performed By: #### H H #### [address] [address] [employer] Research Worker: Tato Ibarra MD Immature granulocytes/100 WBC (Bld) 0 % Normal 0 [facility] Comment on above: Performed By: #### H H #### [address] [address] [employer] Research Worker: Tato Ibarra MD Lymphocytes (Bld) [#/Vol] 1.45 10*3/uL Normal 1.10-3.70 [facility] Comment on above: Performed By: #### H H #### [address] [address] [employer] Research Worker: Tato Ibarra MD Lymphocytes/100 WBC (Bld) 28 % Normal 24-43 [facility] Comment on above: Performed By: #### H H #### [address] [address] [employer] Research Worker: Tato Ibarra MD MCH (RBC) [Entitic mass] 30.5 pg Normal 25.2-33.5 [facility] Comment on above: Performed By: #### H H #### [address] [address] [employer] Research Worker: Tato Ibarra MD MCHC (RBC) [Mass/Vol] 31.1 g/dL Normal 28.4-34.8 [facility] Comment on above: Performed By: #### H H #### [address] [address] [employer] Research Worker: Tato Ibarra MD MCV (RBC) [Entitic vol] 97.8 fL Normal 82.6-102.9 [facility] Comment on above: Performed By: #### H H #### [address] [address] [employer] Research Worker: Tato Ibarra MD Monocytes (Bld) [#/Vol] 0.51 10*3/uL Normal 0.10-1.20 [facility] Comment on above: Performed By: #### H H #### [address] [address] [employer] Research Worker: Tato Ibarra MD Monocytes/100 WBC (Bld) 10 % Normal 3-12 [facility] Comment on above: Performed By: #### H H #### [address] [address] [employer] Research Worker: Tato Ibarra MD Neutrophil (Seg) 60 % Normal 36-65 [facility] Comment on above: Performed By: #### H H #### [address] [address] [employer] Research Worker: Tato Ibarra MD NRBC Automated 0.0 per 100 WBC Normal 0.0 [facility] Comment on above: Performed By: #### H H #### [address] [address] [employer] Research Worker: Tato Ibarra MD Platelet mean volume (Bld) [Entitic vol] 10.1 fL Normal 8.1-13.5 [facility] Comment on above: Performed By: #### H H #### [address] [address] [employer] Research Worker: Tato Ibarra MD Platelets (Bld) [#/Vol] 227 10*3/uL Normal 138-453 [facility] Comment on above: Performed By: #### H H #### [address] [address] [employer] Research Worker: Tato Ibarra MD RBC (Bld) [#/Vol] 2.79 10*6/uL Low 3.95-5.11 [facility] Comment on above: Performed By: #### H H #### [address] [address] [employer] Research Worker: Tato Ibarra MD RBC morphology finding Nom (Bld) ANISOCYTOSIS PRESENT Normal [facility] Comment on above: Performed By: #### H H #### [address] [address] [employer] Research Worker: Tato Ibarra MD WBC (Bld) [#/Vol] 5.2 10*3/uL Normal 3.5-11.3 [facility] Comment on above: Performed By: #### H H #### [address] [address] [employer] Research Worker: Tato Ibarra MD Hgb/Hcton 01-05-2024 Hematocrit (Bld) [Volume fraction] 29.3 % Low 36.3-47.1 [facility] Comment on above: Performed By: #### M RSANO #### [address] [address] [employer] Research Worker: Tato Ibarra MD Hemoglobin (Bld) [Mass/Vol] 9.4 g/dL Low 11.9-15.1 [facility] Comment on above: Performed By: #### M RSANO #### [address] [address] [employer] Research Worker: Tato Ibarra MD K (Potassium)on 01-05-2024 Potassium [Moles/Vol] 3.4 mmol/L Low 3.7-5.3 [facility] Comment on above: Performed By: #### K #### [address] [address] [employer] Research Worker: Tato Ibarra MD Basic Metabolic Profon 01-03 Anion gap [Moles/Vol] 10 mmol/L Normal 9-16 [facility] Comment on above: Performed By: #### H H #### [address] [address] [employer] Research Worker: Tato Ibarra MD Calcium [Mass/Vol] 8.0 mg/dL Low 8.6-10.4 [facility] Comment on above: Performed By: #### H H #### [address] [address] Encyclopedia Research Worker: Tato Ibarra MD Chloride [Moles/Vol] 104 mmol/L Normal 98-107 [facility] Comment on above: Performed By: #### H H #### [address] [address] Encyclopedia Research Worker: Tato Ibarra MD CO2 [Moles/Vol] 24 mmol/L Normal 20-31 [facility] Comment on above: Performed By: #### H H #### [address] [address] [employer] Research Worker: Tato Ibarra MD Creatinine [Mass/Vol] 0.3 mg/dL Low 0.50-0.90 [facility] Comment on above: Performed By: #### H H #### [address] [address] Encyclopedia Research Worker: Tato Ibarra MD GFR/1.73 sq M.predicted among non-blacks MDRD (S/P/Bld) [Vol rate/Area] mL/min/{1.73_m2} Normal >60 [facility] Comment on above: Result Comment: These results are not intended for use in patients <18 years of age. eGFR results are calculated without a race factor using the 2020 CKD-EPI equation. Careful clinical correlation is recommended, particularly when comparing to results calculated using previous equations. The CKD-EPI equation is less accurate in patients with extremes of muscle mass, extra-renal metabolism of creatine, excessive creatine ingestion, or following therapy that affects renal tubular secretion. Performed By: #### H H #### [address] [address] [employer] Research Worker: Tato Ibarra MD Glucose [Mass/Vol] 97 mg/dL Normal 74-99 [facility] Comment on above: Performed By: #### H H #### [address] [address] [employer] Research Worker: Tato Ibarra MD Potassium [Moles/Vol] 3.1 mmol/L Low 3.7-5.3 [facility] Comment on above: Performed By: #### H H #### [address] [address] [employer] Research Worker: Tato Ibarra MD Sodium [Moles/Vol] 138 mmol/L Normal 136-145 [facility] Comment on above: Performed By: #### H H #### [address] [address] [employer] Research Worker: Tato Ibarra MD Urea nitrogen [Mass/Vol] 3 mg/dL Low 6-20 [facility] Comment on above: Performed By: #### H H #### [address] [address] [employer] Research Worker: Tato Ibarra MD CBC with Diffon 01-04-2024 Abs. Basophil 0.00 k/uL Normal 0.00-0.20 [facility] Comment on above: Performed By: #### H H #### [place] [address] [employer] Research Worker: Tato Ibarra MD Abs.Imm.Granulocyte 0.07 k/uL Normal 0.00-0.30 [facility] Comment on above: Performed By: #### H H #### [place] [address] [employer] Research Worker: Tato Ibarra MD Abs.Neutrophil (Seg) 4.82 k/uL Normal 1.50-8.10 [facility] Comment on above: Performed By: #### H H #### [place] [address] [employer] Research Worker: Tato Ibarra MD Basophils/100 WBC (Bld) 0 % Normal 0-2 [facility] Comment on above: Performed By: #### H H #### [place] [address] [employer] Research Worker: Tato Ibarra MD Eosinophils (Bld) [#/Vol] 0.07 10*3/uL Normal 0.00-0.44 [facility] Comment on above: Performed By: #### H H #### [place] [address] [employer] Research Worker: Tato Ibarra MD Eosinophils/100 WBC (Bld) 1 % Normal 1-4 [facility] Comment on above: Performed By: #### H H #### [place] [address] [employer] Research Worker: Tato Ibarra MD Immature granulocytes/100 WBC (Bld) 1 % High 0 [facility] Comment on above: Performed By: #### H H #### [place] [address] [employer] Research Worker: Tato Ibarra MD Lymphocytes (Bld) [#/Vol] 1.09 10*3/uL Low 1.10-3.70 [facility] Comment on above: Performed By: #### H H #### [address] [address] [employer] Research Worker: Tato Ibarra MD Lymphocytes/100 WBC (Bld) 16 % Low 24-43 [facility] Comment on above: Performed By: #### H H #### [address] [address] [employer] Research Worker: Tato Ibarra MD Monocytes (Bld) [#/Vol] 0.75 10*3/uL Normal 0.10-1.20 [facility] Comment on above: Performed By: #### H H #### [place] [address] [employer] Research Worker: Tato Ibarra MD Monocytes/100 WBC (Bld) 11 % Normal 3-12 [facility] Comment on above: Performed By: #### H H #### [address] [address] [employer] Research Worker: Tato Ibarra MD Morphology Ritesh (Bld) [Interp] ANISOCYTOSIS PRESENT Normal [facility] Comment on above: Performed By: #### H H #### [place] [address] [employer] Research Worker: Tato Ibarra MD Neutrophil (Seg) 71 % High 36-65 [facility] Comment on above: Performed By: #### H H #### [place] [address] [employer] Research Worker: Tato Ibarra MD Erythrocyte distribution width (RBC) [Ratio] 21.1 % High 11.8-14.4 [facility] Comment on above: Performed By: #### H H #### [address] [address] Encyclopedia Research Worker: Tato Ibarra MD Hematocrit (Bld) [Volume fraction] 27.7 % Low 36.3-47.1 [facility] Comment on above: Performed By: #### H H #### [address] [address] Encyclopedia Research Worker: Tato Ibarra MD Hemoglobin (Bld) [Mass/Vol] 8.8 g/dL Low 11.9-15.1 [facility] Comment on above: Performed By: #### H H #### [address] [address] [employer] Research Worker: Tato Ibarra MD MCH (RBC) [Entitic mass] 31.3 pg Normal 25.2-33.5 [facility] Comment on above: Performed By: #### H H #### [address] [address] Encyclopedia Research Worker: Tato Ibarra MD MCHC (RBC) [Mass/Vol] 31.8 g/dL Normal 28.4-34.8 [facility] Comment on above: Performed By: #### H H #### [address] [address] Encyclopedia Research Worker: Tato Ibarra MD MCV (RBC) [Entitic vol] 98.6 fL Normal 82.6-102.9 [facility] Comment on above: Performed By: #### H H #### [address] [address] [employer] Research Worker: Tato Ibarra MD NRBC Automated 0.0 per 100 WBC Normal 0.0 [facility] Comment on above: Performed By: #### H H #### [address] [address] [employer] Research Worker: Tato Ibarra MD Platelet mean volume (Bld) [Entitic vol] 9.4 fL Normal 8.1-13.5 [facility] Comment on above: Performed By: #### H H #### [address] [address] [employer] Research Worker: Tato Ibarra MD Platelets (Bld) [#/Vol] 234 10*3/uL Normal 138-453 [facility] Comment on above: Performed By: #### H H #### [address] [address] [employer] Research Worker: Tato Ibarra MD RBC (Bld) [#/Vol] 2.81 10*6/uL Low 3.95-5.11 [facility] Comment on above: Performed By: #### H H #### [address] [address] [employer] Research Worker: Tato Ibarra MD WBC (Bld) [#/Vol] 6.8 10*3/uL Normal 3.5-11.3 [facility] Comment on above: Performed By: #### H H #### [address] [address] Encyclopedia Research Worker: Tato Ibarra MD Hgb/Hcton 01-04-2024 Hematocrit (Bld) [Volume fraction] 27.8 % Low 36.3-47.1 [facility] Comment on above: Performed By: #### M RSANO #### [address] [address] [employer] Research Worker: Tato Ibarra MD Hemoglobin (Bld) [Mass/Vol] 8.9 g/dL Low 11.9-15.1 [facility] Comment on above: Performed By: #### M RSANO #### [address] [address] Encyclopedia Research Worker: Tato Ibarra MD Basic Metab w/rfx MGon 01-02 Anion gap [Moles/Vol] 10 mmol/L Normal 9-16 [facility] Comment on above: Performed By: #### K #### [address] [address] Encyclopedia Research Worker: Tato Ibarra MD Calcium [Mass/Vol] 8.2 mg/dL Low 8.6-10.4 [facility] Comment on above: Performed By: #### K #### [address] [address] Encyclopedia Research Worker: Tato Ibarra MD Chloride [Moles/Vol] 106 mmol/L Normal 98-107 [facility] Comment on above: Performed By: #### K #### [address] [address] Encyclopedia Research Worker: Tato Ibarra MD CO2 [Moles/Vol] 24 mmol/L Normal 20-31 [facility] Comment on above: Performed By: #### K #### [address] [address] [employer] Research Worker: Tato Ibarra MD Creatinine [Mass/Vol] 0.3 mg/dL Low 0.50-0.90 [facility] Comment on above: Performed By: #### K #### [address] [address] Encyclopedia Research Worker: Tato Ibarra MD GFR/1.73 sq M.predicted among non-blacks MDRD (S/P/Bld) [Vol rate/Area] mL/min/{1.73_m2} Normal >60 [facility] Comment on above: Result Comment: These results are not intended for use in patients <18 years of age. eGFR results are calculated without a race factor using the 2020 CKD-EPI equation. Careful clinical correlation is recommended, particularly when comparing to results calculated using previous equations. The CKD-EPI equation is less accurate in patients with extremes of muscle mass, extra-renal metabolism of creatine, excessive creatine ingestion, or following therapy that affects renal tubular secretion. Performed By: #### K #### [address] [address] [employer] Research Worker: Tato Ibarra MD Glucose [Mass/Vol] 95 mg/dL Normal 74-99 [facility] Comment on above: Performed By: #### K #### [address] [address] [employer] Research Worker: Tato Ibarra MD Potassium [Moles/Vol] 3.4 mmol/L Low 3.7-5.3 [facility] Comment on above: Performed By: #### K #### [address] [address] [employer] Research Worker: Tato Ibarra MD Sodium [Moles/Vol] 140 mmol/L Normal 136-145 [facility] Comment on above: Performed By: #### K #### [address] [address] [employer] Research Worker: Tato Ibarra MD Urea nitrogen [Mass/Vol] 3 mg/dL Low 6-20 [facility] Comment on above: Performed By: #### K #### [address] [address] Encyclopedia Research Worker: Tato Ibarra MD CBCon 01-03-2024 Erythrocyte distribution width (RBC) [Ratio] 22.1 % High 11.8-14.4 [facility] Comment on above: Performed By: #### H H #### [address] [address] [employer] Research Worker: Tato Ibarra MD Hematocrit (Bld) [Volume fraction] 26.2 % Low 36.3-47.1 [facility] Comment on above: Performed By: #### H H #### [address] [address] [employer] Research Worker: Tato Ibarra MD Hemoglobin (Bld) [Mass/Vol] 9.0 g/dL Low 11.9-15.1 [facility] Comment on above: Performed By: #### H H #### [address] [address] [employer] Research Worker: Tato Ibarra MD MCH (RBC) [Entitic mass] 31.9 pg Normal 25.2-33.5 [facility] Comment on above: Performed By: #### H H #### [address] [address] [employer] Research Worker: Tato Ibarra MD MCHC (RBC) [Mass/Vol] 34.4 g/dL Normal 28.4-34.8 [facility] Comment on above: Performed By: #### H H #### [place] [address] [employer] Research Worker: Tato Ibarra MD MCV (RBC) [Entitic vol] 92.9 fL Normal 82.6-102.9 [facility] Comment on above: Performed By: #### H H #### [address] [address] [employer] Research Worker: Tato Ibarra MD NRBC Automated 0.0 per 100 WBC Normal 0.0 [facility] Comment on above: Performed By: #### H H #### [address] [address] [employer] Research Worker: Tato Ibarra MD Platelet mean volume (Bld) [Entitic vol] 9.6 fL Normal 8.1-13.5 [facility] Comment on above: Performed By: #### H H #### [address] [address] [employer] Research Worker: Tato Ibarra MD Platelets (Bld) [#/Vol] 219 10*3/uL Normal 138-453 [facility] Comment on above: Performed By: #### H H #### [address] [address] [employer] Research Worker: Tato Ibarra MD RBC (Bld) [#/Vol] 2.82 10*6/uL Low 3.95-5.11 [facility] Comment on above: Performed By: #### H H #### [address] [address] [employer] Research Worker: Tato Ibarra MD WBC (Bld) [#/Vol] 8.4 10*3/uL Normal 3.5-11.3 [facility] Comment on above: Performed By: #### H H #### [address] [address] [employer] Research Worker: Tato Ibarra MD CBC with Diffon 01-03-2024 Abs. Basophil 0.00 k/uL Normal 0.00-0.20 [facility] Comment on above: Performed By: #### P TT, PT, FEBC #### [address] [address] [employer] Research Worker: Tato Ibarra MD Abs.Imm.Granulocyte 0.00 k/uL Normal 0.00-0.30 [facility] Comment on above: Performed By: #### P TT, PT, FEBC #### [address] [address] [employer] Research Worker: Tato Ibarra MD Abs.Neutrophil (Seg) 5.40 k/uL Normal 1.50-8.10 [facility] Comment on above: Performed By: #### P TT, PT, FEBC #### [address] [address] Encyclopedia Research Worker: Tato Ibarra MD Basophils/100 WBC (Bld) 0 % Normal 0-2 [facility] Comment on above: Performed By: #### P TT, PT, FEBC #### [address] [address] [employer] Research Worker: Tato Ibarra MD Eosinophils (Bld) [#/Vol] 0.00 10*3/uL Normal 0.00-0.44 [facility] Comment on above: Performed By: #### P TT, PT, FEBC #### [address] [address] [employer] Research Worker: Taot Ibarra MD Eosinophils/100 WBC (Bld) 0 % Low 1-4 [facility] Comment on above: Performed By: #### P TT, PT, FEBC #### [address] [address] [employer] Research Worker: Tato Ibarra MD Immature granulocytes/100 WBC (Bld) 0 % Normal 0 [facility] Comment on above: Performed By: #### P TT, PT, FEBC #### [address] [address] [employer] Research Worker: Tato Ibarra MD Lymphocytes (Bld) [#/Vol] 1.24 10*3/uL Normal 1.10-3.70 [facility] Comment on above: Performed By: #### P TT, PT, FEBC #### [address] [address] [employer] Research Worker: Tato Ibarra MD Lymphocytes/100 WBC (Bld) 17 % Low 24-43 [facility] Comment on above: Performed By: #### P TT, PT, FEBC #### [address] [address] [employer] Research Worker: Tato Ibarra MD Monocytes (Bld) [#/Vol] 0.66 10*3/uL Normal 0.10-1.20 [facility] Comment on above: Performed By: #### P TT, PT, FEBC #### [address] [address] [employer] Research Worker: Tato Ibarra MD Monocytes/100 WBC (Bld) 9 % Normal 3-12 [facility] Comment on above: Performed By: #### P TT, PT, FEBC #### [address] [address] [employer] Research Worker: Tato Ibarra MD Morphology Ritesh (Bld) [Interp] ANISOCYTOSIS PRESENT Normal [facility] Comment on above: Performed By: #### P TT, PT, FEBC #### [address] [address] [employer] Research Worker: Tato Ibarra MD Neutrophil (Seg) 74 % High 36-65 [facility] Comment on above: Performed By: #### P TT, PT, FEBC #### [address] [address] [employer] Research Worker: Tato Ibarra MD Erythrocyte distribution width (RBC) [Ratio] 21.8 % High 11.8-14.4 [facility] Comment on above: Performed By: #### P TT, PT, FEBC #### [address] [address] Encyclopedia Research Worker: Tato Ibarra MD Hematocrit (Bld) [Volume fraction] 25.5 % Low 36.3-47.1 [facility] Comment on above: Performed By: #### P TT, PT, FEBC #### [address] [address] [employer] Research Worker: Tato Ibarra MD Hemoglobin (Bld) [Mass/Vol] 8.6 g/dL Low 11.9-15.1 [facility] Comment on above: Performed By: #### P TT, PT, FEBC #### [address] [address] Encyclopedia Research Worker: Tato Ibarra MD MCH (RBC) [Entitic mass] 31.6 pg Normal 25.2-33.5 [facility] Comment on above: Performed By: #### P TT, PT, FEBC #### [address] [address] Encyclopedia Research Worker: Tato Ibarra MD MCHC (RBC) [Mass/Vol] 33.7 g/dL Normal 28.4-34.8 [facility] Comment on above: Performed By: #### P TT, PT, FEBC #### [address] [address] [employer] Research Worker: Tato Ibarra MD MCV (RBC) [Entitic vol] 93.8 fL Normal 82.6-102.9 [facility] Comment on above: Performed By: #### P TT, PT, FEBC #### [address] [address] [employer] Research Worker: Tato Ibarra MD NRBC Automated 0.0 per 100 WBC Normal 0.0 [facility] Comment on above: Performed By: #### P TT, PT, FEBC #### [address] [address] [employer] Research Worker: Tato Ibarra MD Platelet mean volume (Bld) [Entitic vol] 9.7 fL Normal 8.1-13.5 [facility] Comment on above: Performed By: #### P TT, PT, FEBC #### [address] [address] [employer] Research Worker: Tato Ibarra MD Platelets (Bld) [#/Vol] 220 10*3/uL Normal 138-453 [facility] Comment on above: Performed By: #### P TT, PT, FEBC #### [address] [address] Encyclopedia Research Worker: Tato Ibarra MD RBC (Bld) [#/Vol] 2.72 10*6/uL Low 3.95-5.11 [facility] Comment on above: Performed By: #### P TT, PT, FEBC #### [address] [address] [employer] Research Worker: Tato Ibarra MD WBC (Bld) [#/Vol] 7.3 10*3/uL Normal 3.5-11.3 [facility] Comment on above: Performed By: #### P TT, PT, FEBC #### [address] [address] [employer] Research Worker: Tato Ibarra MD Hgb/Hcton 01-03-2024 Hematocrit (Bld) [Volume fraction] 28.3 % Low 36.3-47.1 [facility] Comment on above: Performed By: #### K #### [address] [address] [employer] Research Worker: Tato Ibarra MD Hemoglobin (Bld) [Mass/Vol] 9.3 g/dL Low 11.9-15.1 [facility] Comment on above: Performed By: #### K #### [facility] [employer] [address] [place] [address] Encyclopedia Research Worker: Tato Ibarra MD Hematocrit (Bld) [Volume fraction] 27.3 % Low 36.3-47.1 [facility] Comment on above: Performed By: #### H H #### [facility] [employer] [address] [place] [address] [employer] Research Worker: Tato Ibarra MD Hemoglobin (Bld) [Mass/Vol] 9.1 g/dL Low 11.9-15.1 [facility] Comment on above: Performed By: #### H H #### [facility] [address] [address] Encyclopedia Research Worker: Tato Ibarra MD K (Potassium)on 01-03-2024 Potassium [Moles/Vol] 3.1 mmol/L Low 3.7-5.3 [facility] Comment on above: Performed By: #### H H #### [address] [address] [employer] Research Worker: Tato Ibarra MD Magnesiumon 01-03-2024 Magnesium [Mass/Vol] 1.8 mg/dL Normal 1.6-2.6 [facility] Comment on above: Performed By: #### P TT, PT, FEBC #### [address] [address] Encyclopedia Research Worker: Tato Ibarra MD Basic Metab w/rfx MGon 01-01 Anion gap [Moles/Vol] 9 mmol/L Normal 9-16 [facility] Comment on above: Performed By: #### H H #### [address] [address] [employer] Research Worker: Tato Ibarra MD Calcium [Mass/Vol] 7.8 mg/dL Low 8.6-10.4 [facility] Comment on above: Performed By: #### H H #### [facility] [employer] [address] [place] [address] [employer] Research Worker: Tato Ibarra MD Chloride [Moles/Vol] 110 mmol/L High 98-107 [facility] Comment on above: Performed By: #### H H #### [facility] [employer] [address] [place] [address] Encyclopedia Research Worker: Tato Ibarra MD CO2 [Moles/Vol] 22 mmol/L Normal 20-31 [facility] Comment on above: Performed By: #### H H #### [facility] [employer] [address] [place] [id number] [employer] Research Worker: Tato Ibarra MD Creatinine [Mass/Vol] 0.3 mg/dL Low 0.50-0.90 [facility] Comment on above: Performed By: #### H H #### [address] [address] Encyclopedia Research Worker: Tato Ibarra MD GFR/1.73 sq M.predicted among non-blacks MDRD (S/P/Bld) [Vol rate/Area] mL/min/{1.73_m2} Normal >60 [facility] Comment on above: Result Comment: These results are not intended for use in patients <18 years of age. eGFR results are calculated without a race factor using the 2020 CKD-EPI equation. Careful clinical correlation is recommended, particularly when comparing to results calculated using previous equations. The CKD-EPI equation is less accurate in patients with extremes of muscle mass, extra-renal metabolism of creatine, excessive creatine ingestion, or following therapy that affects renal tubular secretion. Performed By: #### H H #### [address] [address] [employer] Research Worker: Tato Ibarra MD Glucose [Mass/Vol] 105 mg/dL High 74-99 [facility] Comment on above: Performed By: #### H H #### [address] [address] Encyclopedia Research Worker: Tato Ibarra MD Potassium [Moles/Vol] 3.0 mmol/L Low 3.7-5.3 [facility] Comment on above: Performed By: #### H H #### [address] [address] [employer] Research Worker: Tato Ibarra MD Sodium [Moles/Vol] 141 mmol/L Normal 136-145 [facility] Comment on above: Performed By: #### H H #### [address] [address] [employer] Research Worker: Tato Ibarra MD Urea nitrogen [Mass/Vol] 8 mg/dL Normal 6-20 [facility] Comment on above: Performed By: #### H H #### [address] [address] Encyclopedia Research Worker: Tato Ibarra MD CBC with Diffon 01-02-2024 Abs. Basophil 0.00 k/uL Normal 0.00-0.20 [facility] Comment on above: Performed By: #### H H #### [address] [address] Encyclopedia Research Worker: Tato Ibarra MD Abs.Imm.Granulocyte 0.00 k/uL Normal 0.00-0.30 [facility] Comment on above: Performed By: #### H H #### [place] [address] Encyclopedia Research Worker: Tato Ibarra MD Abs.Neutrophil (Seg) 4.48 k/uL Normal 1.50-8.10 [facility] Comment on above: Performed By: #### H H #### [address] [address] [employer] Research Worker: Tato Ibarra MD Basophils/100 WBC (Bld) 0 % Normal 0-2 [facility] Comment on above: Performed By: #### H H #### [place] [address] [employer] Research Worker: Tato Ibarra MD Eosinophils (Bld) [#/Vol] 0.00 10*3/uL Normal 0.00-0.44 [facility] Comment on above: Performed By: #### H H #### [address] [address] [employer] Research Worker: Tato Ibarra MD Eosinophils/100 WBC (Bld) 0 % Low 1-4 [facility] Comment on above: Performed By: #### H H #### [address] [address] [employer] Research Worker: Tato Ibarra MD Immature granulocytes/100 WBC (Bld) 0 % Normal 0 [facility] Comment on above: Performed By: #### H H #### [address] [address] Encyclopedia Research Worker: Tato Ibarra MD Lymphocytes (Bld) [#/Vol] 1.50 10*3/uL Normal 1.10-3.70 [facility] Comment on above: Performed By: #### H H #### [address] [address] Encyclopedia Research Worker: Tato Ibarra MD Lymphocytes/100 WBC (Bld) 22 % Low 24-43 [facility] Comment on above: Performed By: #### H H #### [address] [address] Encyclopedia Research Worker: Tato Ibarra MD Monocytes (Bld) [#/Vol] 0.82 10*3/uL Normal 0.10-1.20 [facility] Comment on above: Performed By: #### H H #### [address] [address] [employer] Research Worker: Tato Ibarra MD Monocytes/100 WBC (Bld) 12 % Normal 3-12 [facility] Comment on above: Performed By: #### H H #### [address] [address] [employer] Research Worker: Tato Ibarra MD Morphology Ritesh (Bld) [Interp] ANISOCYTOSIS PRESENT Normal [facility] Comment on above: Result Comment: HYPO CHROMIA PRESENT Performed By: #### H H #### [address] [address] Encyclopedia Research Worker: Tato Ibarra MD Neutrophil (Seg) 66 % High 36-65 [facility] Comment on above: Performed By: #### H H #### [address] [address] Encyclopedia Research Worker: Tato Ibarra MD Erythrocyte distribution width (RBC) [Ratio] 23.0 % High 11.8-14.4 [facility] Comment on above: Performed By: #### H H #### [place] [address] [employer] Research Worker: Tato Ibarra MD Hematocrit (Bld) [Volume fraction] 24.8 % Low 36.3-47.1 [facility] Comment on above: Performed By: #### H H #### [address] [address] Encyclopedia Research Worker: Tato Ibarra MD Hemoglobin (Bld) [Mass/Vol] 8.4 g/dL Low 11.9-15.1 [facility] Comment on above: Performed By: #### H H #### [address] [address] [employer] Research Worker: Tato Ibarra MD MCH (RBC) [Entitic mass] 31.1 pg Normal 25.2-33.5 [facility] Comment on above: Performed By: #### H H #### [place] [address] [employer] Research Worker: Tato Ibarra MD MCHC (RBC) [Mass/Vol] 33.9 g/dL Normal 28.4-34.8 [facility] Comment on above: Performed By: #### H H #### [address] [address] Encyclopedia Research Worker: Tato Ibarra MD MCV (RBC) [Entitic vol] 91.9 fL Normal 82.6-102.9 [facility] Comment on above: Performed By: #### H H #### [address] [address] [employer] Research Worker: Tato Ibarra MD NRBC Automated 0.0 per 100 WBC Normal 0.0 [facility] Comment on above: Performed By: #### H H #### [address] [address] Encyclopedia Research Worker: Tato Ibarra MD Platelet mean volume (Bld) [Entitic vol] 9.3 fL Normal 8.1-13.5 [facility] Comment on above: Performed By: #### H H #### [place] [address] [employer] Research Worker: Tato Ibarra MD Platelets (Bld) [#/Vol] 207 10*3/uL Normal 138-453 [facility] Comment on above: Performed By: #### H H #### [place] [address] [employer] Research Worker: Tato Ibarra MD RBC (Bld) [#/Vol] 2.70 10*6/uL Low 3.95-5.11 [facility] Comment on above: Performed By: #### H H #### [address] [address] Encyclopedia Research Worker: Tato Ibarra MD WBC (Bld) [#/Vol] 6.8 10*3/uL Normal 3.5-11.3 [facility] Comment on above: Performed By: #### H H #### [address] [address] Encyclopedia Research Worker: Tato Ibarra MD Abs. Basophil 0.00 k/uL Normal 0.00-0.20 [facility] Comment on above: Performed By: #### M RSANO #### [address] [address] Encyclopedia Research Worker: Tato Ibarra MD Abs.Imm.Granulocyte 0.00 k/uL Normal 0.00-0.30 [facility] Comment on above: Performed By: #### M RSANO #### [address] [address] Encyclopedia Research Worker: Tato Ibarra MD Abs.Neutrophil (Seg) 4.76 k/uL Normal 1.50-8.10 [facility] Comment on above: Performed By: #### M RSANO #### [address] [address] Encyclopedia Research Worker: Tato Ibarra MD Basophils/100 WBC (Bld) 0 % Normal 0-2 [facility] Comment on above: Performed By: #### M RSANO #### [address] [address] Encyclopedia Research Worker: Tato Ibarra MD Eosinophils (Bld) [#/Vol] 0.00 10*3/uL Normal 0.00-0.44 [facility] Comment on above: Performed By: #### M RSANO #### [address] [address] Encyclopedia Research Worker: Tato Ibarra MD Eosinophils/100 WBC (Bld) 0 % Low 1-4 [facility] Comment on above: Performed By: #### M RSANO #### [address] [address] Encyclopedia Research Worker: Tato Ibarra MD Immature granulocytes/100 WBC (Bld) 0 % Normal 0 [facility] Comment on above: Performed By: #### M RSANO #### [address] [address] Encyclopedia Research Worker: Tato Ibarra MD Lymphocytes (Bld) [#/Vol] 1.52 10*3/uL Normal 1.10-3.70 [facility] Comment on above: Performed By: #### M RSANO #### [address] [address] Encyclopedia Research Worker: Tato Ibarra MD Lymphocytes/100 WBC (Bld) 22 % Low 24-43 [facility] Comment on above: Performed By: #### M RSANO #### [address] [address] Encyclopedia Research Worker: Tato Ibarra MD Monocytes (Bld) [#/Vol] 0.62 10*3/uL Normal 0.10-1.20 [facility] Comment on above: Performed By: #### M RSANO #### [address] [address] Encyclopedia Research Worker: Tato Ibarra MD Monocytes/100 WBC (Bld) 9 % Normal 3-12 [facility] Comment on above: Performed By: #### M RSANO #### [address] [address] Encyclopedia Research Worker: Tato Ibarra MD Morphology Ritesh (Bld) [Interp] ANISOCYTOSIS PRESENT Normal [facility] Comment on above: Result Comment: HYPO CHROMIA PRESENT Performed By: #### M RSANO #### [address] [address] Encyclopedia Research Worker: Tato Ibarra MD Neutrophil (Seg) 69 % High 36-65 [facility] Comment on above: Performed By: #### M RSANO #### [address] [address] Encyclopedia Research Worker: Tato Ibarra MD Erythrocyte distribution width (RBC) [Ratio] 22.9 % High 11.8-14.4 [facility] Comment on above: Performed By: #### M RSANO #### [address] [address] Encyclopedia Research Worker: Tato Ibarra MD Hematocrit (Bld) [Volume fraction] 25.7 % Low 36.3-47.1 [facility] Comment on above: Performed By: #### M RSANO #### [address] [address] Encyclopedia Research Worker: Tato Ibarra MD Hemoglobin (Bld) [Mass/Vol] 8.8 g/dL Low 11.9-15.1 [facility] Comment on above: Performed By: #### M RSANO #### [address] [address] Encyclopedia Research Worker: Tato Ibarra MD MCH (RBC) [Entitic mass] 31.5 pg Normal 25.2-33.5 [facility] Comment on above: Performed By: #### M RSANO #### [place] [address] Encyclopedia Research Worker: Tato Ibarra MD MCHC (RBC) [Mass/Vol] 34.2 g/dL Normal 28.4-34.8 [facility] Comment on above: Performed By: #### M RSANO #### [place] [address] Encyclopedia Research Worker: Tato Ibarra MD MCV (RBC) [Entitic vol] 92.1 fL Normal 82.6-102.9 [facility] Comment on above: Performed By: #### M RSANO #### [place] [address] Encyclopedia Research Worker: Tato Ibarra MD NRBC Automated 0.0 per 100 WBC Normal 0.0 [facility] Comment on above: Performed By: #### M RSANO #### [place] [address] Encyclopedia Research Worker: Tato Ibarra MD Platelet mean volume (Bld) [Entitic vol] 9.2 fL Normal 8.1-13.5 [facility] Comment on above: Performed By: #### M RSANO #### [facility] [address] [place] [address] Encyclopedia Research Worker: Tato Ibarra MD Platelets (Bld) [#/Vol] 215 10*3/uL Normal 138-453 [facility] Comment on above: Performed By: #### M RSANO #### [facility] [address] [place] [address] Encyclopedia Research Worker: Tato Ibarra MD RBC (Bld) [#/Vol] 2.79 10*6/uL Low 3.95-5.11 [facility] Comment on above: Performed By: #### M RSANO #### [facility] [place] [address] Encyclopedia Research Worker: Tato Ibarra MD WBC (Bld) [#/Vol] 6.9 10*3/uL Normal 3.5-11.3 [facility] Comment on above: Performed By: #### M RSANO #### [facility] [address] [place] [address] Encyclopedia Research Worker: Tato Ibarra MD CTA ABDOMEN PELVIS W WO CONT [facility] 01-02-2024 CTA ABDOMEN PELVIS W WO CONTRAST EXAMINATION: CTA OF THE ABDOMEN AND PELVIS WITH AND WITHOUT CONTRAST 01/01/2024 3:32 pm TECHNIQUE: CTA of the abdomen and pelvis was performed without and with the administration of intravenous contrast. Multiplanar reformatted images are provided for review. MIP images are provided for review. Automated exposure control, iterative reconstruction, and/or weight based adjustment of the mA/kV was utilized to reduce the radiation dose to as low as reasonably achievable. COMPARISON: None HISTORY: ORDERING SYSTEM PROVIDED HISTORY: GI bleed TECHNOLOGIST PROVIDED HISTORY: GI bleed Reason for Exam: GI bleed FINDINGS: CTA ABDOMEN: Normal abdominal aorta and major visceral branch vessels; normal celiac artery anatomy. Accessory lower pole right renal artery. Small amount of calcific plaque disease distal abdominal aorta. No active contrast extravasation. See comments below. CTA PELVIS: Mildly elongated but widely patent iliac arteries with slight calcific plaque disease internal iliac arteries. Incidental Findings: No acute abnormality major upper abdominal organs; small gallstone without CT evidence for cholecystitis. No dilatation biliary tree. Symmetric renal perfusion without focal abnormality, large stones or mass. 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 Additional suture line noted near the ulceration. Small hiatus hernia and mural prominence gastric remnant/antrum; remainder residual stomach partially fluid-filled but otherwise WNL. Some liquid stool noted in large bowel with gas-filled sigmoid, but no obstruction or significant wall thickening elsewhere; remainder bowel structures WNL. Distended urinary bladder without mass or stones. Absent uterus. No pelvic mass or fluid collection. No free air or pathologic free fluid. Compression deformity T11, and mild-moderate multilevel degenerative changes and some DDD, latter best seen L5-S1, L1-L2, and on either side T11. IMPRESSION: 1. No active contrast extravasation or pseudoaneurysm. 2. Post Maame-en-Y gastric bypass surgery with mural thickening and possible ulceration gastroenteric anastomosis, with a slightly irregular left gastric branch vessel but no clear-cut contrast extravasation or definite pseudoaneurysm. 3. Small hiatus hernia and mural prominence gastric remnant/antrum; remainder residual stomach partially fluid-filled but otherwise WNL. 4. Some liquid stool noted in large bowel with gas-filled sigmoid but no obstruction or significant wall thickening elsewhere; remainder bowel structures WNL. 5. Small gallstone without CT evidence cholecystitis or biliary obstruction. 6. Compression deformity T11, and mild-moderate multilevel degenerative changes and some DDD, latter best seen L5-S1, L1-L2, and on either side T11. Interpreted by: Nasir Martinez MD Signed by: Nasir Martinez MD 01/02/24 Final result Normal [facility] Comp Metabolic Pr/rfx MGon 0 01-02-2024 Albumin [Mass/Vol] 2.7 g/dL Low 3.5-5.2 [facility] Comment on above: Performed By: #### H H #### [facility] [place] [address] Encyclopedia Research Worker: Tato Ibarra MD Albumin/Glob Ratio 2.0 Normal 1.0-2.5 [facility] Comment on above: Performed By: #### H H #### [address] [address] Encyclopedia Research Worker: Tato Ibarra MD Alkaline Phos 124 U/L High 35-104 [facility] Comment on above: Performed By: #### H H #### [address] [address] Encyclopedia Research Worker: Tato Ibarra MD ALT [Catalytic activity/Vol] 13 U/L Normal 10-35 [facility] Comment on above: Performed By: #### H H #### [address] [address] Encyclopedia Research Worker: Tato Ibarra MD Anion gap [Moles/Vol] 12 mmol/L Normal 9-16 [facility] Comment on above: Performed By: #### H H #### [address] [address] Encyclopedia Research Worker: Tato Ibarra MD AST [Catalytic activity/Vol] 42 U/L High 10-35 [facility] Comment on above: Performed By: #### H H #### [address] [address] Encyclopedia Research Worker: Tato Ibarra MD Bilirubin [Mass/Vol] 0.8 mg/dL Normal 0.00-1.20 [facility] Comment on above: Performed By: #### H H #### [address] [address] Encyclopedia Research Worker: Tato Ibarra MD Calcium [Mass/Vol] 7.8 mg/dL Low 8.6-10.4 [facility] Comment on above: Performed By: #### H H #### [address] [id number] Encyclopedia Research Worker: Tato Ibarra MD Chloride [Moles/Vol] 106 mmol/L Normal 98-107 [facility] Comment on above: Performed By: #### H H #### [address] [address] Encyclopedia Research Worker: Tato Ibarra MD CO2 [Moles/Vol] 19 mmol/L Low 20-31 [facility] Comment on above: Performed By: #### H H #### [facility] [address] [place] [id number] Encyclopedia Research Worker: Tato Ibarra MD Creatinine [Mass/Vol] 0.3 mg/dL Low 0.50-0.90 [facility] Comment on above: Performed By: #### H H #### [address] [id number] Encyclopedia Research Worker: Tato Ibarra MD GFR/1.73 sq M.predicted among non-blacks MDRD (S/P/Bld) [Vol rate/Area] mL/min/{1.73_m2} Normal >60 [facility] Comment on above: Result Comment: These results are not intended for use in patients <18 years of age. eGFR results are calculated without a race factor using the 2020 CKD-EPI equation. Careful clinical correlation is recommended, particularly when comparing to results calculated using previous equations. The CKD-EPI equation is less accurate in patients with extremes of muscle mass, extra-renal metabolism of creatine, excessive creatine ingestion, or following therapy that affects renal tubular secretion. Performed By: #### H H #### [address] [address] Encyclopedia Research Worker: Tato Ibarra MD Glucose [Mass/Vol] 104 mg/dL High 74-99 [facility] Comment on above: Performed By: #### H H #### [address] [address] Encyclopedia Research Worker: Tato Ibarra MD Potassium [Moles/Vol] 3.9 mmol/L Normal 3.7-5.3 [facility] Comment on above: Performed By: #### H H #### [address] [address] Encyclopedia Research Worker: Tato Ibarra MD Protein [Mass/Vol] 4.5 g/dL Low 6.6-8.7 [facility] Comment on above: Performed By: #### H H #### [address] [address] Encyclopedia Research Worker: Tato Ibarra MD Sodium [Moles/Vol] 137 mmol/L Normal 136-145 [facility] Comment on above: Performed By: #### H H #### [address] [address] Encyclopedia Research Worker: Tato Ibarra MD Urea nitrogen [Mass/Vol] 8 mg/dL Normal 6-20 [facility] Comment on above: Performed By: #### H H #### [address] [address] Encyclopedia Research Worker: Tato Ibarra MD Glucose,Whole Bloodon 2023 Glucose [Mass/Vol] 93 mg/dL Normal 65-105 [facility] Hgb/Hcton 01-02-2024 Hematocrit (Bld) [Volume fraction] 26.3 % Low 36.3-47.1 [facility] Comment on above: Performed By: #### K #### [address] [address] Encyclopedia Research Worker: Tato Ibarra MD Hemoglobin (Bld) [Mass/Vol] 9.1 g/dL Low 11.9-15.1 [facility] Comment on above: Performed By: #### K #### [address] [address] Encyclopedia Research Worker: Tato Ibarra MD Hematocrit (Bld) [Volume fraction] 25.2 % Low 36.3-47.1 [facility] Comment on above: Performed By: #### H H #### [address] [address] Encyclopedia Research Worker: Tato Ibarra MD Hemoglobin (Bld) [Mass/Vol] 8.5 g/dL Low 11.9-15.1 [facility] Comment on above: Performed By: #### H H #### [address] [address] Encyclopedia Research Worker: Tato Ibarra MD Hematocrit (Bld) [Volume fraction] 25.0 % Low 36.3-47.1 [facility] Comment on above: Performed By: #### K #### [address] [address] Encyclopedia Research Worker: Tato Ibarra MD Hemoglobin (Bld) [Mass/Vol] 8.6 g/dL Low 11.9-15.1 [facility] Comment on above: Performed By: #### K #### [address] [address] Encyclopedia Research Worker: Tato Ibarra MD Lipaseon 01-02-2024 Lipase [Catalytic activity/Vol] 18 U/L Normal 13-60 [facility] Comment on above: Performed By: #### H H #### [address] [address] Encyclopedia Research Worker: Tato Ibarra MD MRSA, DNA, Nasalon MRSA, DNA, Nasal Negative Normal NEG [facility] Comment on above: Result Comment: NEGA TIVE: MRSA DNA not detected by nucleic acid amplification. Results should be used as an adjunct to nosocomial control efforts to identify patients needing enhanced precautions. The test is not intended to identify patients with staphylococcal infections. Results should not be used to guide or monitor treatment for MRSA infections. Performed By: #### M RSANO #### [facility] [address] Encyclopedia Research Worker: Tato Ibarra MD Magnesiumon 01-02-2024 Magnesium [Mass/Vol] 1.9 mg/dL Normal 1.6-2.6 [facility] Comment on above: Performed By: #### H H #### [address] [address] Encyclopedia Research Worker: Tato Ibarra MD Troponinon 01-02-2024 Troponin, High Sens <6 Normal 0-14 [facility] Comment on above: Result Comment: High Sensitivity Troponin values cannot be compared with other Troponin methodologies. Performed By: #### H H #### [address] [address] Encyclopedia Research Worker: Tato Ibarra MD APTTon 01-01-2024 aPTT Coag (Bld) [Time] 24.6 s Normal 23.0-36.5 [facility] Comment on above: Result Comment: IV Heparin Therapy Range: 66.0-92.0 sec Performed By: #### P TT, PT, FEBC #### [address] [address] Encyclopedia Research Worker: Tato Ibarra MD Basic Metab w/rfx MGon 12-31 Anion gap [Moles/Vol] 9 mmol/L Normal 9-16 [facility] Comment on above: Performed By: #### C DP, MG, LIVP, BMPX #### [address] [address] Encyclopedia Research Worker: Tato Ibarra MD Calcium [Mass/Vol] 8.5 mg/dL Low 8.6-10.4 [facility] Comment on above: Performed By: #### C DP, MG, LIVP, BMPX #### [address] [address] Encyclopedia Research Worker: Tato Ibarra MD Chloride [Moles/Vol] 107 mmol/L Normal 98-107 [facility] Comment on above: Performed By: #### C DP, MG, LIVP, BMPX #### [address] [address] Encyclopedia Research Worker: Tato Ibarra MD CO2 [Moles/Vol] 23 mmol/L Normal 20-31 [facility] Comment on above: Performed By: #### C DP, MG, LIVP, BMPX #### [address] [address] Encyclopedia Research Worker: Tato Ibarra MD Creatinine [Mass/Vol] 0.3 mg/dL Low 0.50-0.90 [facility] Comment on above: Performed By: #### C DP, MG, LIVP, BMPX #### [address] [address] Encyclopedia Research Worker: Tato Ibarra MD GFR/1.73 sq M.predicted among non-blacks MDRD (S/P/Bld) [Vol rate/Area] mL/min/{1.73_m2} Normal >60 [facility] Comment on above: Result Comment: These results are not intended for use in patients <18 years of age. eGFR results are calculated without a race factor using the 2020 CKD-EPI equation. Careful clinical correlation is recommended, particularly when comparing to results calculated using previous equations. The CKD-EPI equation is less accurate in patients with extremes of muscle mass, extra-renal metabolism of creatine, excessive creatine ingestion, or following therapy that affects renal tubular secretion. Performed By: #### C DP, MG, LIVP, BMPX #### [address] [address] Encyclopedia Research Worker: Tato Ibarra MD Glucose [Mass/Vol] 86 mg/dL Normal 74-99 [facility] Comment on above: Performed By: #### C DP, MG, LIVP, BMPX #### [address] [address] Encyclopedia Research Worker: Tato Ibarra MD Potassium [Moles/Vol] 3.3 mmol/L Low 3.7-5.3 [facility] Comment on above: Performed By: #### C DP, MG, LIVP, BMPX #### [facility] [employer] [address] [place] [address] Encyclopedia Research Worker: Tato Ibarra MD Sodium [Moles/Vol] 139 mmol/L Normal 136-145 [facility] Comment on above: Performed By: #### C DP, MG, LIVP, BMPX #### [address] [address] Encyclopedia Research Worker: Tato Ibarra MD Urea nitrogen [Mass/Vol] mg/dL Low 6-20 [facility] Comment on above: Performed By: #### C DP, MG, LIVP, BMPX #### [address] [address] Encyclopedia Research Worker: Tato Ibarra MD CBC with Diffon 01-01-2024 Abs. Basophil 0.00 k/uL Normal 0.00-0.20 [facility] Comment on above: Performed By: #### K #### [address] [address] Encyclopedia Research Worker: Tato Ibarra MD Abs.Imm.Granulocyte 0.07 k/uL Normal 0.00-0.30 [facility] Comment on above: Performed By: #### K #### [address] [address] Encyclopedia Research Worker: Tato Ibarra MD Abs.Neutrophil (Seg) 4.93 k/uL Normal 1.50-8.10 [facility] Comment on above: Performed By: #### K #### [address] [address] Encyclopedia Research Worker: Tato Ibarra MD Basophils/100 WBC (Bld) 0 % Normal 0-2 [facility] Comment on above: Performed By: #### K #### [address] [address] Encyclopedia Research Worker: Tato Ibarra MD Eosinophils (Bld) [#/Vol] 0.00 10*3/uL Normal 0.00-0.44 [facility] Comment on above: Performed By: #### K #### [address] [address] Encyclopedia Research Worker: Tato Ibarra MD Eosinophils/100 WBC (Bld) 0 % Low 1-4 [facility] Comment on above: Performed By: #### K #### [address] [address] Encyclopedia Research Worker: Tato Ibarra MD Immature granulocytes/100 WBC (Bld) 1 % High 0 [facility] Comment on above: Performed By: #### K #### [address] [address] Encyclopedia Research Worker: Tato Ibarra MD Lymphocytes (Bld) [#/Vol] 1.11 10*3/uL Normal 1.10-3.70 [facility] Comment on above: Performed By: #### K #### [address] [address] Encyclopedia Research Worker: Tato Ibarra MD Lymphocytes/100 WBC (Bld) 17 % Low 24-43 [facility] Comment on above: Performed By: #### K #### [address] [address] Encyclopedia Research Worker: Tato Ibarra MD Monocytes (Bld) [#/Vol] 0.39 10*3/uL Normal 0.10-1.20 [facility] Comment on above: Performed By: #### K #### [address] [address] Encyclopedia Research Worker: Tato Ibarra MD Monocytes/100 WBC (Bld) 6 % Normal 3-12 [facility] Comment on above: Performed By: #### K #### [address] [address] Encyclopedia Research Worker: Tato Ibarra MD Morphology Ritesh (Bld) [Interp] Normal Normal [facility] Comment on above: Performed By: #### K #### [address] [address] Encyclopedia Research Worker: Tato Ibarra MD Neutrophil (Seg) 76 % High 36-65 [facility] Comment on above: Performed By: #### K #### [address] [address] Encyclopedia Research Worker: Tato Ibarra MD Erythrocyte distribution width (RBC) [Ratio] 22.1 % High 11.8-14.4 [facility] Comment on above: Performed By: #### K #### [address] [address] Encyclopedia Research Worker: Tato Ibarra MD Hematocrit (Bld) [Volume fraction] 29.9 % Low 36.3-47.1 [facility] Comment on above: Result Comment: TEST CONFIRMED Performed By: #### K #### [address] [address] Encyclopedia Research Worker: Tato Ibarra MD Hemoglobin (Bld) [Mass/Vol] 10.2 g/dL Low 11.9-15.1 [facility] Comment on above: Result Comment: TEST CONFIRMED Performed By: #### K #### [address] [address] Encyclopedia Research Worker: Tato Ibarra MD MCH (RBC) [Entitic mass] 31.6 pg Normal 25.2-33.5 [facility] Comment on above: Performed By: #### K #### [address] [address] Encyclopedia Research Worker: Tato Ibarra MD MCHC (RBC) [Mass/Vol] 34.1 g/dL Normal 28.4-34.8 [facility] Comment on above: Performed By: #### K #### [address] [address] Encyclopedia Research Worker: Tato Ibarra MD MCV (RBC) [Entitic vol] 92.6 fL Normal 82.6-102.9 [facility] Comment on above: Performed By: #### K #### [address] [address] Encyclopedia Research Worker: Tato Ibarra MD NRBC Automated 0.0 per 100 WBC Normal 0.0 [facility] Comment on above: Performed By: #### K #### [address] [address] Encyclopedia Research Worker: Tato Ibarra MD Platelet mean volume (Bld) [Entitic vol] 9.5 fL Normal 8.1-13.5 [facility] Comment on above: Performed By: #### K #### [address] [address] Encyclopedia Research Worker: Tato Ibarra MD Platelets (Bld) [#/Vol] 222 10*3/uL Normal 138-453 [facility] Comment on above: Performed By: #### K #### [address] [address] Encyclopedia Research Worker: Tato Ibarra MD RBC (Bld) [#/Vol] 3.23 10*6/uL Low 3.95-5.11 [facility] Comment on above: Performed By: #### K #### [address] [address] Encyclopedia Research Worker: Tato Ibarra MD WBC (Bld) [#/Vol] 6.5 10*3/uL Normal 3.5-11.3 [facility] Comment on above: Performed By: #### K #### [place] [address] Encyclopedia Research Worker: Tato Ibarra MD Abs. Basophil 0.03 k/uL Normal 0.00-0.20 [facility] Comment on above: Performed By: #### C DP, MG, LIVP, BMPX #### [place] [address] Encyclopedia Research Worker: Tato Ibarra MD Abs.Imm.Granulocyte <0.03 Normal 0.00-0.30 [facility] Comment on above: Performed By: #### C DP, MG, LIVP, BMPX #### [place] [address] Encyclopedia Research Worker: Tato Ibarra MD Abs.Neutrophil (Seg) 2.72 k/uL Normal 1.50-8.10 [facility] Comment on above: Performed By: #### C DP, MG, LIVP, BMPX #### [place] [address] Encyclopedia Research Worker: Tato Ibarra MD Basophils/100 WBC (Bld) 1 % Normal 0-2 [facility] Comment on above: Performed By: #### C DP, MG, LIVP, BMPX #### [place] [address] Encyclopedia Research Worker: Tato Ibarra MD Eosinophils (Bld) [#/Vol] 0.14 10*3/uL Normal 0.00-0.44 [facility] Comment on above: Performed By: #### C DP, MG, LIVP, BMPX #### [place] [address] [employer] Research Worker: Tato Ibarra MD Eosinophils/100 WBC (Bld) 3 % Normal 1-4 [facility] Comment on above: Performed By: #### C DP, MG, LIVP, BMPX #### [facility] [address] [place] [address] Encyclopedia Research Worker: Tato Ibarra MD Erythrocyte distribution width (RBC) [Ratio] 18.6 % High 11.8-14.4 [facility] Comment on above: Performed By: #### C DP, MG, LIVP, BMPX #### [facility] [address] [place] [address] Encyclopedia Research Worker: Tato Ibarra MD Hematocrit (Bld) [Volume fraction] 32.5 % Low 36.3-47.1 [facility] Comment on above: Performed By: #### C DP, MG, LIVP, BMPX #### [facility] [address] [place] [address] Encyclopedia Research Worker: Tato Ibarra MD Hemoglobin (Bld) [Mass/Vol] 10.6 g/dL Low 11.9-15.1 [facility] Comment on above: Performed By: #### C DP, MG, LIVP, BMPX #### [facility] [address] [place] [address] Encyclopedia Research Worker: Tato Ibarra MD Immature granulocytes/100 WBC (Bld) 0 % Normal 0 [facility] Comment on above: Performed By: #### C DP, MG, LIVP, BMPX #### [facility] [address] [place] [address] Encyclopedia Research Worker: Tato Ibarra MD Lymphocytes (Bld) [#/Vol] 1.44 10*3/uL Normal 1.10-3.70 [facility] Comment on above: Performed By: #### C DP, MG, LIVP, BMPX #### [facility] [address] [place] [address] Encyclopedia Research Worker: Tato Ibarra MD Lymphocytes/100 WBC (Bld) 29 % Normal 24-43 [facility] Comment on above: Performed By: #### C DP, MG, LIVP, BMPX #### [address] [address] Encyclopedia Research Worker: Tato Ibarra MD MCH (RBC) [Entitic mass] 33.5 pg Normal 25.2-33.5 [facility] Comment on above: Performed By: #### C DP, MG, LIVP, BMPX #### [place] [address] Encyclopedia Research Worker: Tato Ibarra MD MCHC (RBC) [Mass/Vol] 32.6 g/dL Normal 28.4-34.8 [facility] Comment on above: Performed By: #### C DP, MG, LIVP, BMPX #### [place] [address] Encyclopedia Research Worker: Tato Ibarra MD MCV (RBC) [Entitic vol] 102.8 fL Normal 82.6-102.9 [facility] Comment on above: Performed By: #### C DP, MG, LIVP, BMPX #### [place] [address] [employer] Research Worker: Tato Ibarra MD Monocytes (Bld) [#/Vol] 0.54 10*3/uL Normal 0.10-1.20 [facility] Comment on above: Performed By: #### C DP, MG, LIVP, BMPX #### [place] [address] [employer] Research Worker: Tato Ibarra MD Monocytes/100 WBC (Bld) 11 % Normal 3-12 [facility] Comment on above: Performed By: #### C DP, MG, LIVP, BMPX #### [address] [address] Encyclopedia Research Worker: Tato Ibarra MD Neutrophil (Seg) 56 % Normal 36-65 [facility] Comment on above: Performed By: #### C DP, MG, LIVP, BMPX #### [address] [address] Encyclopedia Research Worker: Tato Iabrra MD NRBC Automated 0.0 per 100 WBC Normal 0.0 [facility] Comment on above: Performed By: #### C DP, MG, LIVP, BMPX #### [address] [address] Encyclopedia Research Worker: Tato Ibarra MD Platelet mean volume (Bld) [Entitic vol] 9.5 fL Normal 8.1-13.5 [facility] Comment on above: Performed By: #### C DP, MG, LIVP, BMPX #### [address] [address] Encyclopedia Research Worker: Tato Ibarra MD Platelets (Bld) [#/Vol] 220 10*3/uL Normal 138-453 [facility] Comment on above: Performed By: #### C DP, MG, LIVP, BMPX #### [address] [address] Encyclopedia Research Worker: Tato Ibarra MD RBC (Bld) [#/Vol] 3.16 10*6/uL Low 3.95-5.11 [facility] Comment on above: Performed By: #### C DP, MG, LIVP, BMPX #### [address] [address] Encyclopedia Research Worker: Tato Ibarra MD RBC morphology finding Nom (Bld) ANISOCYTOSIS PRESENT Normal [facility] Comment on above: Performed By: #### C DP, MG, LIVP, BMPX #### [facility] [address] [place] [address] Encyclopedia Research Worker: Tato Ibarra MD WBC (Bld) [#/Vol] 4.9 10*3/uL Normal 3.5-11.3 [facility] Comment on above: Performed By: #### C DP, MG, LIVP, BMPX #### [address] [address] Encyclopedia Research Worker: Tato Ibarra MD Calcium, Ionicon 01-01-2024 Calcium [Moles/Vol] 1.13 mmol/L Normal 1.13-1.33 [facility] Comment on above: Performed By: #### K #### [facility] [address] [place] [address] Encyclopedia Research Worker: Tato Ibarra MD Fecal Lactoferrinon 01-01-20 Fecal Lactoferrin POSITIVE for fecal lactoferrin, a marker for fecal leukocytes and an indicator Abnormal NFLACT [facility] Comment on above: Result Comment: of i ntestinal inflammation. Performed By: #### K #### [facility] [address] [place] [address] Encyclopedia Research Worker: Tato Ibarra MD Glucose,Whole Bloodon 2023 Glucose [Mass/Vol] 111 mg/dL High 65-105 [facility] Hgb/Hcton 01-01-2024 Hematocrit (Bld) [Volume fraction] 24.2 % Low 36.3-47.1 [facility] Comment on above: Performed By: #### H H #### [facility] [address] [place] [address] Encyclopedia Research Worker: Tato Ibarra MD Hemoglobin (Bld) [Mass/Vol] 7.7 g/dL Low 11.9-15.1 [facility] Comment on above: Performed By: #### H H #### [facility] [address] [place] [address] Encyclopedia Research Worker: Tato Ibarra MD Hematocrit DUPLICATE ORDER Normal 36.3-47.1 [facility] Comment on above: Performed By: #### P TT, PT, FEBC #### [address] [address] Encyclopedia Research Worker: Tato Ibarra MD Hemoglobin DUPLICATE ORDER Normal 11.9-15.1 [facility] Comment on above: Performed By: #### P TT, PT, FEBC #### [address] [address] Encyclopedia Research Worker: Tato Ibarra MD Hematocrit (Bld) [Volume fraction] 31.8 % Low 36.3-47.1 [facility] Comment on above: Performed By: #### M RSANO #### [address] [address] Encyclopedia Research Worker: Tato Ibarra MD Hemoglobin (Bld) [Mass/Vol] 10.3 g/dL Low 11.9-15.1 [facility] Comment on above: Performed By: #### M RSANO #### [address] [address] Encyclopedia Research Worker: Tato Ibarra MD Lactate, Sepsison 01-01-2024 Lactic Acid,Sep Wbld 0.9 mmol/L Normal 0.5-1.9 [facility] Comment on above: Performed By: #### K #### [address] [address] Encyclopedia Research Worker: Tato Ibarra MD Liver Profileon 01-01-2024 Albumin [Mass/Vol] 2.8 g/dL Low 3.5-5.2 [facility] Comment on above: Performed By: #### M RSANO #### [address] [address] Encyclopedia Research Worker: Tato Ibarra MD Albumin/Glob Ratio 1.0 Normal 1.0-2.5 [facility] Comment on above: Performed By: #### M RSANO #### [address] [address] Encyclopedia Research Worker: Tato Ibarra MD Alkaline Phos 161 U/L High 35-104 [facility] Comment on above: Performed By: #### M RSANO #### [address] [address] Encyclopedia Research Worker: Tato Ibarra MD ALT [Catalytic activity/Vol] 10 U/L Normal 10-35 [facility] Comment on above: Performed By: #### M RSANO #### [address] [address] Encyclopedia Research Worker: Tato Ibarra MD AST [Catalytic activity/Vol] 40 U/L High 10-35 [facility] Comment on above: Performed By: #### M RSANO #### [address] [address] Encyclopedia Research Worker: Tato Ibarra MD Bilirubin [Mass/Vol] 0.3 mg/dL Normal 0.00-1.20 [facility] Comment on above: Performed By: #### M RSANO #### [address] [address] Encyclopedia Research Worker: Tato Ibarra MD Bilirubin, Indirect Can not be calculated Normal 0.0-1 .0 [facility] Comment on above: Performed By: #### M RSANO #### [address] [address] Encyclopedia Research Worker: Tato Ibarra MD Bilirubin.indirect [Mass/Vol] mg/dL Normal 0.0-0.2 [facility] Comment on above: Performed By: #### M RSANO #### [address] [address] [employer] Research Worker: Tato Ibarra MD Globulin (S) [Mass/Vol] 2.2 g/dL Normal [facility] Comment on above: Performed By: #### M RSANO #### [address] [address] [employer] Research Worker: Tato Ibarra MD Protein [Mass/Vol] 5.0 g/dL Low 6.6-8.7 [facility] Comment on above: Performed By: #### M RSANO #### [address] [address] [employer] Research Worker: Tato Ibarra MD MRSA, DNA, Nasalon Specimen Description .NASAL SWAB Normal [facility] Comment on above: Performed By: #### M RSANO #### [address] [address] Encyclopedia Research Worker: Tato Ibarra MD Magnesiumon 6 Magnesium [Mass/Vol] 2.0 mg/dL Normal 1.6-2.6 [facility] Comment on above: Performed By: #### M RSANO #### [address] [address] Encyclopedia Research Worker: Tato Ibarra MD PTon 01-01-2024 INR Coag (PPP) [Relative time] 0.9 {INR} Normal [facility] Comment on above: Result Comment: Therapeutic Range: Moderate Anticoagulant Intensity: INR = 2.0-3.0 High Anticoagulant Intensity: INR = 2.5-3.5 Performed By: #### P TT, PT, FEBC #### [address] [address] Encyclopedia Research Worker: Tato Ibarra MD PT Coag (PPP) [Time] 12.3 s Normal 11.7-14.9 [facility] Comment on above: Performed By: #### P TT, PT, FEBC #### [address] [address] [employer] Research Worker: Tato Ibarra MD Type + Screenon 01-01-2024 Type + Screen Sample Expiration 01/03/2024,2359 Arm Band Number [id number] ABO/Rh(D) O NEGATIVE Antibody Screen NEGATIVE Unit Number [id number] Blood Component Type Leukocyte Reduced Red Cell Unit Division 00 Status of Unit TRANSFUSED Transfusion Status OK TO TRANSFUSE Crossmatch Result COMPATIBLE Unit Number [id number] Blood Component Type Leukocyte Reduced Red Cell Unit Division 00 Status of Unit TRANSFUSED Transfusion Status OK TO TRANSFUSE Crossmatch Result COMPATIBLE Normal [facility] Comment on above: Performed By: #### K #### [address] [address] Encyclopedia Research Worker: Tato Ibarra MD APTTon 12-31-2023 aPTT Coag (Bld) [Time] 27.6 s Normal 23.0-36.5 [facility] Comment on above: Result Comment: IV Heparin Therapy Range: 66.0-92.0 sec Performed By: #### P TT, PT, FEBC #### [facility] [address] [place] [address] Encyclopedia Research Worker: Tato Ibarra MD aPTT Coag (Bld) [Time] 27.8 s Normal 23.0-36.5 [facility] Comment on above: Result Comment: IV Heparin Therapy Range: 66.0-92.0 sec Performed By: #### H H #### [address] [address] Encyclopedia Research Worker: Tato Ibarra MD B12/Folate Panelon Cobalamin (Vitamin B12) [Mass/Vol] 271 pg/mL Normal 232-1245 [facility] Comment on above: Performed By: #### P TT, PT, FEBC #### [address] [address] Encyclopedia Research Worker: Tato Ibarra MD Folic Acid 5.4 ng/mL Normal 4.8-24.2 [facility] Comment on above: Performed By: #### P TT, PT, FEBC #### [facility] [employer] [address] [place] [address] Encyclopedia Research Worker: Tato Ibarra MD Basic Metabolic Profon 12-30 Anion gap [Moles/Vol] 10 mmol/L Normal 9-16 [facility] Comment on above: Performed By: #### P TT, PT, FEBC #### [facility] [employer] [address] [place] [address] Encyclopedia Research Worker: Tato Ibarra MD Calcium [Mass/Vol] 8.5 mg/dL Low 8.6-10.4 [facility] Comment on above: Performed By: #### P TT, PT, FEBC #### [address] [address] Encyclopedia Research Worker: Tato Ibarra MD Chloride [Moles/Vol] 105 mmol/L Normal 98-107 [facility] Comment on above: Performed By: #### P TT, PT, FEBC #### [address] [address] Encyclopedia Research Worker: Tato Ibarra MD CO2 [Moles/Vol] 20 mmol/L Normal 20-31 [facility] Comment on above: Performed By: #### P TT, PT, FEBC #### [facility] [employer] [address] [place] [address] Encyclopedia Research Worker: Tato Ibarra MD Creatinine [Mass/Vol] 0.4 mg/dL Low 0.50-0.90 [facility] Comment on above: Performed By: #### P TT, PT, FEBC #### [facility] [employer] [address] [place] [address] Encyclopedia Research Worker: Tato Ibarra MD GFR/1.73 sq M.predicted among non-blacks MDRD (S/P/Bld) [Vol rate/Area] mL/min/{1.73_m2} Normal >60 [facility] Comment on above: Result Comment: These results are not intended for use in patients <18 years of age. eGFR results are calculated without a race factor using the 2020 CKD-EPI equation. Careful clinical correlation is recommended, particularly when comparing to results calculated using previous equations. The CKD-EPI equation is less accurate in patients with extremes of muscle mass, extra-renal metabolism of creatine, excessive creatine ingestion, or following therapy that affects renal tubular secretion. Performed By: #### P TT, PT, FEBC #### [address] [address] Encyclopedia Research Worker: Tato Ibarra MD Glucose [Mass/Vol] 89 mg/dL Normal 74-99 [facility] Comment on above: Performed By: #### P TT, PT, FEBC #### [address] [address] Encyclopedia Research Worker: Tato Ibarra MD Potassium [Moles/Vol] 3.7 mmol/L Normal 3.7-5.3 [facility] Comment on above: Performed By: #### P TT, PT, FEBC #### [address] [address] Encyclopedia Research Worker: Tato Ibarra MD Sodium [Moles/Vol] 135 mmol/L Low 136-145 [facility] Comment on above: Performed By: #### P TT, PT, FEBC #### [address] [address] [employer] Research Worker: Tato Ibarra MD Urea nitrogen [Mass/Vol] 2 mg/dL Low 6-20 [facility] Comment on above: Performed By: #### P TT, PT, FEBC #### [address] [address] [employer] Research Worker: Tato Ibarra MD C diff Ag + Toxinon 12-31-19 24 C diff Ag + Toxin Negative Normal NEG [facility] Comment on above: Result Comment: No C . difficile antigen and Toxin Detected. Performed By: #### H H #### [address] [address] Encyclopedia Research Worker: Tato Ibarra MD Specimen Description .FECES Normal [facility] Comment on above: Performed By: #### H H #### [address] [address] [employer] Research Worker: Tato Ibarra MD Performed By: #### K #### [address] [address] Encyclopedia Research Worker: Tato Ibarra MD CBC with Diffon 12-31-2023 Abs. Basophil 0.03 k/uL Normal 0.00-0.20 [facility] Comment on above: Performed By: #### M RSANO #### [address] [address] Encyclopedia Research Worker: Tato Ibarra MD Abs.Imm.Granulocyte 0.03 k/uL Normal 0.00-0.30 [facility] Comment on above: Performed By: #### M RSANO #### [address] [address] [employer] Research Worker: Tato Ibarra MD Abs.Neutrophil (Seg) 3.14 k/uL Normal 1.50-8.10 [facility] Comment on above: Performed By: #### M RSANO #### [address] [address] [employer] Research Worker: Tato Ibarra MD Basophils/100 WBC (Bld) 1 % Normal 0-2 [facility] Comment on above: Performed By: #### M RSANO #### [address] [address] Encyclopedia Research Worker: Tato Ibarra MD Eosinophils (Bld) [#/Vol] 0.12 10*3/uL Normal 0.00-0.44 [facility] Comment on above: Performed By: #### M RSANO #### [address] [address] Encyclopedia Research Worker: Tato Ibarra MD Eosinophils/100 WBC (Bld) 2 % Normal 1-4 [facility] Comment on above: Performed By: #### M RSANO #### [address] [address] Encyclopedia Research Worker: Tato Ibarra MD Erythrocyte distribution width (RBC) [Ratio] 18.8 % High 11.8-14.4 [facility] Comment on above: Performed By: #### M RSANO #### [address] [address] [employer] Research Worker: Tato Ibarra MD Hematocrit (Bld) [Volume fraction] 33.2 % Low 36.3-47.1 [facility] Comment on above: Performed By: #### M RSANO #### [address] [address] Encyclopedia Research Worker: Tato Ibarra MD Hemoglobin (Bld) [Mass/Vol] 10.9 g/dL Low 11.9-15.1 [facility] Comment on above: Performed By: #### M RSANO #### [address] [address] Encyclopedia Research Worker: Tato Ibarra MD Immature granulocytes/100 WBC (Bld) 1 % High 0 [facility] Comment on above: Performed By: #### M RSANO #### [address] [address] Encyclopedia Research Worker: Tato Ibarra MD Lymphocytes (Bld) [#/Vol] 1.41 10*3/uL Normal 1.10-3.70 [facility] Comment on above: Performed By: #### M RSANO #### [address] [place] [address] [employer] Research Worker: Tato Ibarra MD Lymphocytes/100 WBC (Bld) 27 % Normal 24-43 [facility] Comment on above: Performed By: #### M RSANO #### [address] [address] Encyclopedia Research Worker: Tato Ibarra MD MCH (RBC) [Entitic mass] 34.1 pg High 25.2-33.5 [facility] Comment on above: Performed By: #### M RSANO #### [address] [address] Encyclopedia Research Worker: Tato Ibarra MD MCHC (RBC) [Mass/Vol] 32.8 g/dL Normal 28.4-34.8 [facility] Comment on above: Performed By: #### M RSANO #### [address] [address] Encyclopedia Research Worker: Tato Ibarra MD MCV (RBC) [Entitic vol] 103.8 fL High 82.6-102.9 [facility] Comment on above: Performed By: #### M RSANO #### [address] [address] Encyclopedia Research Worker: Tato Ibarra MD Monocytes (Bld) [#/Vol] 0.44 10*3/uL Normal 0.10-1.20 [facility] Comment on above: Performed By: #### M RSANO #### [address] [address] Encyclopedia Research Worker: Tato Ibarra MD Monocytes/100 WBC (Bld) 9 % Normal 3-12 [facility] Comment on above: Performed By: #### M RSANO #### [address] [address] Encyclopedia Research Worker: Tato Ibarra MD Neutrophil (Seg) 60 % Normal 36-65 [facility] Comment on above: Performed By: #### M RSANO #### [address] [address] Encyclopedia Research Worker: Tato Ibarra MD NRBC Automated 0.0 per 100 WBC Normal 0.0 [facility] Comment on above: Performed By: #### M RSANO #### [address] [address] Encyclopedia Research Worker: Tato Ibarra MD Platelet mean volume (Bld) [Entitic vol] 9.2 fL Normal 8.1-13.5 [facility] Comment on above: Performed By: #### M RSANO #### [address] [address] Encyclopedia Research Worker: Tato Ibarra MD Platelets (Bld) [#/Vol] 197 10*3/uL Normal 138-453 [facility] Comment on above: Performed By: #### M RSANO #### [address] [address] Encyclopedia Research Worker: Tato Ibarra MD RBC (Bld) [#/Vol] 3.20 10*6/uL Low 3.95-5.11 [facility] Comment on above: Performed By: #### M RSANO #### [address] [address] [employer] Research Worker: Tato Ibarra MD RBC morphology finding Nom (Bld) ANISOCYTOSIS PRESENT Normal [facility] Comment on above: Result Comment: MACR OCYTOSIS PRESENT Performed By: #### M RSANO #### [address] [address] Encyclopedia Research Worker: Tato Ibarra MD WBC (Bld) [#/Vol] 5.2 10*3/uL Normal 3.5-11.3 [facility] Comment on above: Performed By: #### M RSANO #### [address] [address] Encyclopedia Research Worker: Tato Ibarra MD Calcium, Ionicon 12-31-2023 Calcium [Moles/Vol] 1.23 mmol/L Normal 1.13-1.33 [facility] Comment on above: Performed By: #### M RSANO #### [address] [address] Encyclopedia Research Worker: Tato Ibarra MD Creatinine,Random Uron 12-30 Creatinine [Mass/Vol] 27.0 mg/dL Low 28.0-217.0 [facility] Comment on above: Performed By: #### P TT, PT, FEBC #### [address] [address] Encyclopedia Research Worker: Tato Ibarra MD Hgb/Hcton 12-31-2023 Hematocrit (Bld) [Volume fraction] 34.6 % Low 36.3-47.1 [facility] Comment on above: Performed By: #### H H #### [address] [address] [employer] Research Worker: Tato Ibarra MD Hemoglobin (Bld) [Mass/Vol] 11.3 g/dL Low 11.9-15.1 [facility] Comment on above: Performed By: #### H H #### [address] [address] Encyclopedia Research Worker: Tato Ibarra MD Hematocrit (Bld) [Volume fraction] 33.1 % Low 36.3-47.1 [facility] Comment on above: Performed By: #### H H #### [address] [address] Encyclopedia Research Worker: Tato Ibarra MD Hemoglobin (Bld) [Mass/Vol] 10.8 g/dL Low 11.9-15.1 [facility] Comment on above: Performed By: #### H H #### [address] [address] Encyclopedia Research Worker: Tato Ibarra MD Hematocrit (Bld) [Volume fraction] 33.1 % Low 36.3-47.1 [facility] Comment on above: Performed By: #### H H #### [address] [address] Encyclopedia Research Worker: Tato Ibarra MD Hemoglobin (Bld) [Mass/Vol] 11.2 g/dL Low 11.9-15.1 [facility] Comment on above: Performed By: #### H H #### [address] [address] Encyclopedia Research Worker: Tato Ibarra MD Hematocrit (Bld) [Volume fraction] 34.0 % Low 36.3-47.1 [facility] Comment on above: Performed By: #### H H #### [address] [address] Encyclopedia Research Worker: Tato Ibarra MD Hemoglobin (Bld) [Mass/Vol] 11.1 g/dL Low 11.9-15.1 [facility] Comment on above: Performed By: #### H H #### [address] [address] Encyclopedia Research Worker: Tato Ibarra MD Iron Binding Cap.on 12-31-19 24 % Fe Saturation 11 % Low 20-55 [facility] Comment on above: Performed By: #### P TT, PT, FEBC #### [address] [address] Encyclopedia Research Worker: Tato Ibarra MD Iron [Mass/Vol] 24 ug/dL Low 37-145 [facility] Comment on above: Performed By: #### P TT, PT, FEBC #### [address] [place] [address] Encyclopedia Research Worker: Tato Ibarra MD Total Fe Binding Cap 213 ug/dL Low 250-450 [facility] Comment on above: Performed By: #### P TT, PT, FEBC #### [facility] [address] [place] [address] Encyclopedia Research Worker: Tato Ibarra MD Unbound Fe Bind Cap 189 ug/dL Normal 112-347 [facility] Comment on above: Performed By: #### P TT, PT, FEBC #### [facility] [address] [place] [address] Encyclopedia Research Worker: Tato Ibarra MD Lactate Dehydrogenaseon LDH [Catalytic activity/Vol] 168 U/L Normal 135-214 [facility] Comment on above: Performed By: #### P TT, PT, FEBC #### [facility] [employer] [address] [place] [address] Encyclopedia Research Worker: Tato Ibarra MD Lactic Acidon 12-31-2023 Lactic Acid,Whole Bl 1.0 mmol/L Normal 0.7-2.1 [facility] Comment on above: Performed By: #### P TT, PT, FEBC #### [facility] [employer] [address] [place] [address] Encyclopedia Research Worker: Tato Ibarra MD Liver Profileon 12-31-2023 Albumin [Mass/Vol] 3.0 g/dL Low 3.5-5.2 [facility] Comment on above: Performed By: #### P TT, PT, FEBC #### [facility] [address] [place] [address] Encyclopedia Research Worker: Tato Ibarra MD Albumin/Glob Ratio 1.0 Normal 1.0-2.5 [facility] Comment on above: Performed By: #### P TT, PT, FEBC #### [facility] [address] [place] [address] Encyclopedia Research Worker: Tato Ibarra MD Alkaline Phos 174 U/L High 35-104 [facility] Comment on above: Performed By: #### P TT, PT, FEBC #### [facility] [address] [place] [address] Encyclopedia Research Worker: Tato Ibarra MD ALT [Catalytic activity/Vol] 13 U/L Normal 10-35 [facility] Comment on above: Performed By: #### P TT, PT, FEBC #### [facility] [address] [place] [address] Encyclopedia Research Worker: Tato Ibarra MD AST [Catalytic activity/Vol] 47 U/L High 10-35 [facility] Comment on above: Performed By: #### P TT, PT, FEBC #### [address] [address] Encyclopedia Research Worker: Tato Ibarra MD Bilirubin [Mass/Vol] 0.4 mg/dL Normal 0.00-1.20 [facility] Comment on above: Performed By: #### P TT, PT, FEBC #### [address] [address] Encyclopedia Research Worker: Tato Ibarra MD Bilirubin, Indirect 0.2 mg/dL Normal 0.0-1.0 [facility] Comment on above: Performed By: #### P TT, PT, FEBC #### [facility] [address] [place] [address] Encyclopedia Research Worker: Tato Ibarra MD Bilirubin.indirect [Mass/Vol] 0.2 mg/dL Normal 0.0-0.2 [facility] Comment on above: Performed By: #### P TT, PT, FEBC #### [facility] [address] [place] [address] Encyclopedia Research Worker: Tato Ibarra MD Globulin (S) [Mass/Vol] 2.2 g/dL Normal [facility] Comment on above: Performed By: #### P TT, PT, FEBC #### [address] [address] [employer] Research Worker: Tato Ibarra MD Protein [Mass/Vol] 5.2 g/dL Low 6.6-8.7 [facility] Comment on above: Performed By: #### P TT, PT, FEBC #### [facility] [address] [place] [address] Encyclopedia Research Worker: Tato Ibarra MD Magnesiumon 12-31-2023 Magnesium [Mass/Vol] 1.9 mg/dL Normal 1.6-2.6 [facility] Comment on above: Performed By: #### P TT, PT, FEBC #### [address] [address] Encyclopedia Research Worker: Tato Ibarra MD Osmolalityon 12-31-2023 Osmolality [Osmolality] 278 mosm/kg Normal 275-295 [facility] Comment on above: Performed By: #### P TT, PT, FEBC #### [address] [address] Encyclopedia Research Worker: Tato Ibarra MD PTon 12-31-2023 INR Coag (PPP) [Relative time] 0.9 {INR} Normal [facility] Comment on above: Result Comment: Therapeutic Range: Moderate Anticoagulant Intensity: INR = 2.0-3.0 High Anticoagulant Intensity: INR = 2.5-3.5 Performed By: #### P TT, PT, FEBC #### [address] [address] Encyclopedia Research Worker: Tato Ibarra MD PT Coag (PPP) [Time] 11.9 s Normal 11.7-14.9 [facility] Comment on above: Performed By: #### P TT, PT, FEBC #### [facility] [employer] [address] [place] [address] Encyclopedia Research Worker: Tato Ibarra MD INR Coag (PPP) [Relative time] 0.9 {INR} Normal [facility] Comment on above: Result Comment: Therapeutic Range: Moderate Anticoagulant Intensity: INR = 2.0-3.0 High Anticoagulant Intensity: INR = 2.5-3.5 Performed By: #### M RSANO #### [address] [address] Encyclopedia Research Worker: Tato Ibarra MD PT Coag (PPP) [Time] 11.8 s Normal 11.7-14.9 [facility] Comment on above: Performed By: #### M RSANO #### [address] [address] Encyclopedia Research Worker: Tato Ibarra MD Phosphorus, Inorg.on 024 Phosphorus, Inorg. 3.7 mg/dL Normal 2.5-4.5 [facility] Comment on above: Performed By: #### P TT, PT, FEBC #### [address] [address] Encyclopedia Research Worker: Tato Ibarra MD Sodium, Random Uron 12-31-19 24 Sodium (U) [Moles/Vol] 121 mmol/L Normal [facility] Comment on above: Result Comment: No n ormal range established. Performed By: #### P TT, PT, FEBC #### [address] [address] Encyclopedia Research Worker: Tato Ibarra MD Stool PCR Batteryon 12-31-19 24 Campylobacter sp PCR NEGATIVE: No Campyl obacter spp. (jejuni or coli) DNA Detected Normal CAMNEG [facility] Comment on above: Performed By: #### K #### [address] [address] Encyclopedia Research Worker: Tato Ibarra MD E coli enterotox PCR NEGATIVE: No Enterotoxigenic E. coli (ETEC) Heat-labile and heat-stable (LT/ST) Normal EECNEG [facility] Comment on above: Result Comment: DNA Detected Performed By: #### K #### [address] [address] Encyclopedia Research Worker: Tato Ibarra MD Plesiomonas sp PCR Negative Normal PLENEG [facility] Comment on above: Performed By: #### K #### [address] [address] Encyclopedia Research Worker: Tato Ibarra MD Salmonella sp PCR Negative Normal SALNEG [facility] Comment on above: Performed By: #### K #### [address] [address] Encyclopedia Research Worker: Tato Ibarra MD Shigatoxin gene PCR Negative Normal STXNEG [facility] Comment on above: Performed By: #### K #### [address] [address] Encyclopedia Research Worker: Tato Ibarra MD Shigella sp PCR Negative Normal SHINEG [facility] Comment on above: Performed By: #### K #### [address] [address] Encyclopedia Research Worker: Tato Ibarra MD Vibrio sp PCR NEGATIVE: No Vibrio (V. vulnificus, V, parahaemolyticus and V. cholerae) DNA Normal VIBNEG [facility] Comment on above: Result Comment: Dete cted Performed By: #### K #### [address] [address] Encyclopedia Research Worker: Tato Ibarra MD Yersinia gene PCR Negative Normal YERNEG [facility] Comment on above: Performed By: #### K #### [address] [address] Encyclopedia Research Worker: Tato Ibarra MD TSH w/reflex to FT4on 2023 Thyroid Stim. Horm. 6.81 uIU/mL High 0.27-4.20 [facility] Comment on above: Performed By: #### P TT, PT, FEBC #### [address] [address] Encyclopedia Research Worker: Tato Ibarra MD Thyroxine, Freeon 12-31-2023 Thyroxine, Free 0.8 ng/dL Low 0.92-1.68 [facility] Comment on above: Performed By: #### P TT, PT, FEBC #### [address] [address] Encyclopedia Research Worker: Tato Ibarra MD UA w/Reflex Cultureon 2023 Bilirubin, SemiQt,Ur Negative Normal NEG [facility] Comment on above: Performed By: #### P TT, PT, FEBC #### [address] [address] Encyclopedia Research Worker: Tato Ibarra MD Blood, Urine Negative Normal NEG [facility] Comment on above: Performed By: #### P TT, PT, FEBC #### [address] [address] Encyclopedia Research Worker: Tato Ibarra MD Clarity (U) Clear Normal CLEAR [facility] Comment on above: Performed By: #### P TT, PT, FEBC #### [address] [address] Encyclopedia Research Worker: Tato Ibarra MD Color (U) Yellow Normal YEL [facility] Comment on above: Performed By: #### P TT, PT, FEBC #### [address] [address] Encyclopedia Research Worker: Tato Ibarra MD Comment Microscopic exam not performed based on chemical results unless requested in Normal [facility] Comment on above: Result Comment: orig inal order. Performed By: #### P TT, PT, FEBC #### [address] [address] [employer] Research Worker: Tato Ibarra MD Glucose Ql (U) Negative Normal NEG [facility] Comment on above: Performed By: #### P TT, PT, FEBC #### [address] [address] [employer] Research Worker: Tato Ibarra MD Ketones Ql (U) Negative Normal NEG [facility] Comment on above: Performed By: #### P TT, PT, FEBC #### [address] [address] [employer] Research Worker: Tato Ibarra MD Leukocyte esterase Test strip Ql (U) Negative Normal NEG [facility] Comment on above: Performed By: #### P TT, PT, FEBC #### [facility] [address] [place] [address] [employer] Research Worker: Tato Ibarra MD Nitrite,Ur Negative Normal NEG [facility] Comment on above: Performed By: #### P TT, PT, FEBC #### [facility] [address] [place] [address] [employer] Research Worker: Tato Ibarra MD PH,Ur 5.5 Normal 5.0-8.0 [facility] Comment on above: Performed By: #### P TT, PT, FEBC #### [facility] [address] [place] [address] [employer] Research Worker: Tato Ibarra MD Protein Ql (U) Negative Normal NEG [facility] Comment on above: Performed By: #### P TT, PT, FEBC #### [facility] [address] [place] [address] [employer] Research Worker: Tato Ibarra MD Spec. Portia,Ur 1.007 Normal 1.005-1.03 0 [facility] Comment on above: Performed By: #### P TT, PT, FEBC #### [address] [address] [employer] Research Worker: Tato Ibarra MD Urobilinogen,Ur Normal Normal 0.0-1.0 [facility] Comment on above: Performed By: #### P TT, PT, FEBC #### [address] [address] [employer] Research Worker: Tato Ibarra MD Hgb/Hcton 12-30-2023 Hematocrit (Bld) [Volume fraction] 34.2 % Low 36.3-47.1 [facility] Comment on above: Performed By: #### H H #### [address] [address] Encyclopedia Research Worker: Tato Ibarra MD Hemoglobin (Bld) [Mass/Vol] 11.0 g/dL Low 11.9-15.1 [facility] Comment on above: Performed By: #### H H #### [address] [address] Encyclopedia Research Worker: Tato Ibarra MD Basophils Auto (Bld) [#/Vol] on 11-10-2023 Basophils (Bld) [#/Vol] 0.0 10 3/uL 0.0-0.1 [facility] Basophils/100 WBC Auto (Bld) on 11-10-2023 Basophils/100 WBC (Bld) 0.5 % 0.2-2.0 [facility] Eosinophils/100 WBC Auto (Bl d)on 11-10-2023 Eosinophils/100 WBC (Bld) 0.1 % Low 0.9-7.0 [facility] Erythrocyte distribution wid th Auto (RBC) [Ratio]on 11-10-2023 Erythrocyte distribution width (RBC) [Ratio] 12.7 % 11.0-15.0 [facility] Estimated glomerular filtrat ion rate (GFR) non- Americanon 11-10-2023 GFR/1.73 sq M.predicted among non-blacks MDRD (S/P/Bld) [Vol rate/Area] 58 mL/min/{1.73_m2} Low >=60 [facility] Globulin Calc (S) [Mass/Vol] on 11-10-2023 Globulin (S) [Mass/Vol] 3.6 g/dL [facility] Hematocrit Auto (Bld) [Volum e fraction]on 11-10-2023 Hematocrit (Bld) [Volume fraction] 38.3 % 36.0-48.0 [facility] Hemoglobin [Mass/volume] in Bloodon 11-10-2023 Hemoglobin (Bld) [Mass/Vol] 13.2 g/dL 12.0-16.0 [facility] INR in Platelet poor plasma by Coagulation assayon 11-10-2023 INR Coag (PPP) [Relative time] {INR} [facility] Comment on above: DESIRED INR:2.0-3.0 CONDITIONS NOT LISTED BELOW2.5-3.5 FOR PROSTHETIC HEART VALVE REPLACEMENT2.5-3.5 RECURRENT THROMBOSIS Laboratory - Chemistry and C hemistry - challengeon 11-10-2023 Albumin [Mass/Vol] 3.0 g/dL Low 3.4-5.0 [facility] ALP [Catalytic activity/Vol] 232 U/L High 46-116 [facility] ALT [Catalytic activity/Vol] 23 U/L 14-59 [facility] AST [Catalytic activity/Vol] 82 U/L High 15-37 [facility] Bilirubin [Mass/Vol] 0.6 mg/dL 0.2-1.0 [facility] Calcium [Mass/Vol] 9.3 mg/dL 8.5-10.1 [facility] Chloride [Moles/Vol] 97 mmol/L Low 98-107 [facility] CO2 [Moles/Vol] 25.7 mmol/L 21.0-32.0 [facility] Creatinine [Mass/Vol] 0.99 mg/dL 0.55-1.02 [facility] GFR/1.73 sq M.predicted MDRD (S/P/Bld) [Vol rate/Area] mL/min/{1.73_m2} >=60 [facility] Glucose [Mass/Vol] 113 mg/dL High 74-106 [facility] Lipase [Catalytic activity/Vol] 16.0 U/L 16.0-77.0 [facility] Potassium [Moles/Vol] 3.0 mmol/L Low 3.5-5.1 [facility] Protein [Mass/Vol] 6.6 g/dL 6.4-8.2 [facility] Sodium [Moles/Vol] 133 mmol/L Low 136-145 [facility] Urea nitrogen [Mass/Vol] 4.0 mg/dL Low 7.0-18.0 [facility] Urea nitrogen/Creatinine [Mass ratio] 4.0 mg/mg [facility] Laboratory - Hematology and Cell countson 11-10-2023 Immature granulocytes/100 WBC (Bld) 0.4 % 0.0-0.5 [facility] Leukocytes [#/volume] correc patty for nucleated erythrocytes in Blood by Automated counon 11-10-2023 WBC corrected for nucl RBC Auto (Bld) [#/Vol] 7.3 10 3/uL 4.0-11.0 [facility] Lymphocytes Auto (Bld) [#/Vo l]on 11-10-2023 Lymphocytes (Bld) [#/Vol] 1.3 10 3/uL 1.2-3.8 [facility] Lymphocytes/100 WBC Auto (Bl d)on 11-10-2023 Lymphocytes/100 WBC (Bld) 17.4 % Low 20.5-60.0 [facility] MCH Auto (RBC) [Entitic mass ]on 11-10-2023 MCH (RBC) [Entitic mass] 38.2 pg High 26.7-34.0 [facility] MCHC Auto (RBC) [Mass/Vol]on 11-10-2023 MCHC (RBC) [Mass/Vol] 34.5 g/dL 29.9-35.2 [facility] MCV Auto (RBC) [Entitic vol] on 11-10-2023 MCV (RBC) [Entitic vol] 110.7 fL High 81.0-99.0 [facility] Monocytes Auto (Bld) [#/Vol] on 11-10-2023 Monocytes (Bld) [#/Vol] 0.5 10 3/uL 0.3-0.8 [facility] Monocytes/100 WBC Auto (Bld) on 11-10-2023 Monocytes/100 WBC (Bld) 6.7 % 1.7-12.0 [facility] Neutrophils Auto (Bld) [#/Vo l]on 11-10-2023 Neutrophils (Bld) [#/Vol] 5.5 10 3/uL 1.4-6.5 [facility] Neutrophils/100 WBC Auto (Bl d)on 11-10-2023 Neutrophils/100 WBC (Bld) 74.9 % 43.0-75.0 [facility] No Panel Informationon 11-09 Stool Occult Blood Negative [facility] Eosinophils # (Auto) 0.0 10 3/uL 0.0-0.7 [facility] Immature Granulocyte # (Auto) 0.03 10 3/uL 0.00-0.03 [facility] Troponin I High Sensitivity 11.2 pg/mL 4.0-51.3 [facility] Comment on above: CUT-OFF POINTS HAVE [...] volume (Bld) [Entitic vol] 9.8 fL 9.5-13.5 [facility] Platelets Auto (Bld) [#/Vol] on 11-10-2023 Platelets (Bld) [#/Vol] 305 10 3/uL 150-450 [facility] Prothrombin time (PT)on 10-24 PT Coag (PPP) [Time] 9.7 s 9.0-11.6 [facility] RBC Auto (Bld) [#/Vol]on RBC (Bld) [#/Vol] 3.46 10 6/uL Low 4.20-5.40 [facility] Serum or plasma albumin/glob ulin mass ratioon 11-10-2023 Albumin/Globulin [Mass ratio] 0.8 {ratio} [facility] Serum or plasma anion gap de terminationon 11-10-2023 Anion gap [Moles/Vol] 13.3 [facility] Basophils Auto (Bld) [#/Vol] on 09-03-2023 Basophils (Bld) [#/Vol] 0.0 10 3/uL 0.0-0.1 [facility] Basophils/100 WBC Auto (Bld) on 09-03-2023 Basophils/100 WBC (Bld) 0.4 % 0.2-2.0 [facility] Eosinophils/100 WBC Auto (Bl d)on 09-03-2023 Eosinophils/100 WBC (Bld) 0.4 % 0.9-7.0 [facility] Erythrocyte distribution wid th Auto (RBC) [Ratio]on 09-03-2023 Erythrocyte distribution width (RBC) [Ratio] 16.8 % 11.0-15.0 [facility] Estimated glomerular filtrat ion rate (GFR) non- Americanon 09-03-2023 GFR/1.73 sq M.predicted among non-blacks MDRD (S/P/Bld) [Vol rate/Area] 29 mL/min/{1.73_m2} >=60 [facility] Hematocrit Auto (Bld) [Volum e fraction]on 09-03-2023 Hematocrit (Bld) [Volume fraction] 36.0 % 36.0-48.0 [facility] Hemoglobin [Mass/volume] in Bloodon 09-03-2023 Hemoglobin (Bld) [Mass/Vol] 12.3 g/dL 12.0-16.0 [facility] Laboratory - Chemistry and C hemistry - challengeon 09-03-2023 Calcium [Mass/Vol] 9.3 mg/dL 8.5-10.1 [facility] Chloride [Moles/Vol] 98 mmol/L 98-107 [facility] CO2 [Moles/Vol] 23.8 mmol/L 21.0-32.0 [facility] Creatinine [Mass/Vol] 1.80 mg/dL 0.55-1.02 [facility] GFR/1.73 sq M.predicted MDRD (S/P/Bld) [Vol rate/Area] 36 mL/min/{1.73_m2} >=60 [facility] Glucose [Mass/Vol] 103 mg/dL 74-106 [facility] Potassium [Moles/Vol] 3.2 mmol/L 3.5-5.1 [facility] Sodium [Moles/Vol] 137 mmol/L 136-145 [facility] Urea nitrogen [Mass/Vol] 2.0 mg/dL 7.0-18.0 [facility] Urea nitrogen/Creatinine [Mass ratio] 1.1 mg/mg [facility] Laboratory - Hematology and Cell countson 09-03-2023 Immature granulocytes/100 WBC (Bld) 0.4 % 0.0-0.5 [facility] Leukocytes [#/volume] correc patty for nucleated erythrocytes in Blood by Automated counon 09-03-2023 WBC corrected for nucl RBC Auto (Bld) [#/Vol] 9.9 10 3/uL 4.0-11.0 [facility] Lymphocytes Auto (Bld) [#/Vo l]on 09-03-2023 Lymphocytes (Bld) [#/Vol] 1.7 10 3/uL 1.2-3.8 [facility] Lymphocytes/100 WBC Auto (Bl d)on 09-03-2023 Lymphocytes/100 WBC (Bld) 17.4 % 20.5-60.0 [facility] MCH Auto (RBC) [Entitic mass ]on 09-03-2023 MCH (RBC) [Entitic mass] 36.4 pg 26.7-34.0 [facility] MCHC Auto (RBC) [Mass/Vol]on 09-03-2023 MCHC (RBC) [Mass/Vol] 34.2 g/dL 29.9-35.2 [facility] MCV Auto (RBC) [Entitic vol] on 09-03-2023 MCV (RBC) [Entitic vol] 106.5 fL 81.0-99.0 [facility] Monocytes Auto (Bld) [#/Vol] on 09-03-2023 Monocytes (Bld) [#/Vol] 0.8 10 3/uL 0.3-0.8 [facility] Monocytes/100 WBC Auto (Bld) on 09-03-2023 Monocytes/100 WBC (Bld) 8.0 % 1.7-12.0 [facility] Neutrophils Auto (Bld) [#/Vo l]on 09-03-2023 Neutrophils (Bld) [#/Vol] 7.3 10 3/uL 1.4-6.5 [facility] Neutrophils/100 WBC Auto (Bl d)on 09-03-2023 Neutrophils/100 WBC (Bld) 73.4 % 43.0-75.0 [facility] No Panel Informationon 09-02 Eosinophils # (Auto) 0.0 10 3/uL 0.0-0.7 [facility] Immature Granulocyte # (Auto) 0.04 10 3/uL 0.00-0.03 [facility] Troponin I High Sensitivity 19.5 pg/mL 4.0-51.3 [facility] Comment on above: CUT-OFF POINTS HAVE [...] volume (Bld) [Entitic vol] 9.8 fL 9.5-13.5 [facility] Platelets Auto (Bld) [#/Vol] on 09-03-2023 Platelets (Bld) [#/Vol] 312 10 3/uL 150-450 [facility] RBC Auto (Bld) [#/Vol]on RBC (Bld) [#/Vol] 3.38 10 6/uL 4.20-5.40 [facility] Serum or plasma anion gap de terminationon 09-03-2023 Anion gap [Moles/Vol] 18.4 mmol/L [facility] CT ANGIO CORONARY ART WITH H EARTFLOW [...] PM -------- ORIGINAL REPORT -------- Dictation workstation: [id number] Interpreted By: Ibrahima Merlos, STUDY: CT ANGIO CORONARY ART WITH HEARTFLOW IF SCORE >30%; 07/15/2023 12:36 pm INDICATION: Signs/Symptoms:chest pain,angina. COMPARISON: None. ACCESSION NUMBER(S): [id number] ORDERING CLINICIAN: QUAN HUNTER TECHNIQUE: Using multi-detector [...] gender, and race in asymptomatic patients. Reading Biomedical Engineering Technologist: Dr. Ibrahima Merlos, Date: 07/15/2023 4:40 pm Signed by: Ibrahima Merlos 07/15/2023 4:43 PM Dictation workstation: [id number] [facility] CTA Heart and Coronary arter ies WO [...] PM -------- ORIGINAL REPORT -------- Dictation workstation: [id number] [facility] Work Phone: 1. Mild diffuse po nary artery disease without significant stenosis. 2. Coronary artery calcium score 260, 99th percentile for age, gender, and race in asymptomatic patients. Reading Biomedical Engineering Technologist: Dr. Ibrahima Merlos, Date: 07/15/2023 4:40 pm Signed by: Ibrahima Merlos 07/15/2023 4:43 PM Dictation workstation: [id number] [facility] Interpreted By: Ibrahima Avery, STUDY: CT ANGIO CORONARY ART WITH HEARTFLOW IF SCORE >30%; 07/15/2023 12:36 pm INDICATION: Signs/Symptoms:chest pain,angina. COMPARISON: None. ACCESSION NUMBER(S): [id number] ORDERING CLINICIAN: QUAN HUNTER TECHNIQUE: Using multi-detector [...] INDICATION: Signs/Symptoms:chest pain,angina. COMPARISON: None. ACCESSION NUMBER(S): [id number] ORDERING CLINICIAN: QUAN HUNTER TECHNIQUE: Using multi-detector [...] gender, and race in asymptomatic patients. Reading Biomedical Engineering Technologist: Dr. Ibrahima Merlos, Date: 07/15/2023 4:40 pm Signed by: Ibrahima Merlos 07/15/2023 4:43 PM Dictation workstation: [id number] [facility] Work Phone: Radiology Study observation (narrative) [facility] Work Phone: CTA Heart and Coronary arter ies WO and W contrast IVOrdered By: Miriam Zuleta on 07-15-2023 [facility] Work Phone: Creatinineon 07-15-2023 Creatinine [Mass/Vol] 0.7 mg/dL Normal 0.6-1.3 [facility] Comment on above: Result Comment: Hydr oxyurea can cause significant interference with creatinine measurement using the i-STAT device. An alternate method of creatinine measurement must be used in patients treated with hydroxyurea. Performed By: #### 2 160-0 #### MIGUEL BRADLEY ([id number]) [facility] ([facility]) [address] [place] [address] Creatinine [Mass/Vol]on 06-27 GFR/1.73 sq M.predicted MDRD (S/P/Bld) [Vol rate/Area] [facility] Comment on above: Calculations of martin mated GFR are performed using the 2020 CKD-EPI Study Refit equation without the race variable for the IDMS-Traceable Creatinine Methods. https://jasn.asnjournals.org/content/early/ASN.82673 24288 Interpretation and review of laboratory results Normal [facility] GFR/1.73 sq M.predicted MDRD (S/P/Bld) [Vol rate/Area] mL/min/{1.73_m2} Normal >=60 [facility] Comment on above: Result Comment: Calc ulations of estimated GFR are performed using the 2020 CKD-EPI Study Refit ???equation without the race variable for the IDMS-Traceable Creatinine Methods. https://jasn.asnjournals.org/content/early/ASN.17424 82890 Performed By: #### 2 160-0 #### MIGUEL BRADLEY ([id number]) [facility] ([facility]) [address] [place] [address] Laboratory - Chemistry and C hemistry - challengeon 07-15-2023 Creatinine [Mass/Vol] 0.7 mg/dL 0.6 - 1.3 mg/dL [facility] Comment on above: Hydroxyurea can caus e significant interference with creatinine measurement using the i-STAT device. An alternate method of creatinine measurement must be used in patients treated with hydroxyurea. TRANSTHORACIC ECHO (TTE) [facility] 06-13-2023 TRANSTHORACIC ECHO (TTE) COMPLETE [facility] [address] [facility], [address] [place] [address] TRANSTHORACIC ECHOCARDIOGRAM REPORT Patient Name: CANDY Acuña EMMY Reading Physician: [id number] Ibrahima Serra DO Study Date: 06/13/2023 Ordering Provider: [id number] QUAN Chantel SINHAJUNAID MRN/PID: [id number] Fellow: Nurse: Date of /Age: 5 1970 / 52 years Completions Manager: Ibrahima Valdes Gender: F Additional Staff: Height: 162.56 cm Admit Date: 06/13/2023 Weight: 86.18 kg Admission Status: Outpatient BSA: 1.91 m2 Department Location: [facility] Blood Pressure: 110 /60 mmHg Study Type: TRANSTHORACIC ECHO (TTE) COMPLETE Diagnosis/ICD: Shortness of breath-R06.02; Endocarditis, valve unspecified-I38 Indication: SOB, HV Disease, Dizziness, AO Dilation CPT Codes: Echo Complete w Full Doppler-06708 Patient History: Smoker: Current. Pertinent History: HTN [...] RA Area A4C: 12.5 cm2 RA Major [place] A4C: 4.3 cm AORTA MEASUREMENTS: Normal Ranges: Asc Ao, d: 4.10 cm (2.1-3.4cm) LV SYSTOLIC FUNCT (more content not included)... Normal [facility] Heart TransthoracicOrdere d By: Ibrahima Serra on 06-13-2023 Aortic Valve Area by Continuity of Peak Velocity 3.48 cm2 [facility] Work Phone: Aortic Valve Area by Continuity of VTI 3.57 cm2 [facility] Work Phone: [phone] AV mn grad 3.0 mmHg [facility] Work Phone: 1414-1 100 AV pk grad 4.7 mmHg [facility] Work Phone: 1414-1 [phone] AV pk liya 1.08 m/s [facility] Work Phone: LV A4C EF 55.8 [facility] Work Phone: 1414-5 100 LV biplane EF 56 % [facility] Work Phone: [phone] LVIDd 4.20 cm [facility] Work Phone: 1414-9 [phone] LVOT diam 2.20 cm [facility] Work Phone: 1414-2 100 MV avg E/e' ratio 4.90 [facility] Work Phone: MV E/A ratio 0.62 [facility] Work Phone: RVSP 35.5 mmHg [facility] Work Phone: [phone] [facility] Work Phone: [place] [facility] [address], [address], [place] [address] TRANSTHORACIC ECHOCARDIOGRAM REPORT Patient Name: CANDY Domenico BOOTH Reading Physician: [id number] Ibrahima Serra DO Study Date: 06/13/2023 Ordering Provider: [id number] QUAN Chantel SINHAJUNAID MRN/PID: [id number] Fellow: Nurse: Date of /Age: 5 1970 / 52 years Completions Manager: Ibrahima Valdes Gender: F Additional Staff: Height: 162.56 cm Admit Date: 06/13/2023 Weight: 86.18 kg Admission Status: Outpatient BSA: 1.91 m2 Department Location: [facility] Blood Pressure: 110 /60 mmHg Study Type: TRANSTHORACIC ECHO (TTE) COMPLETE Diagnosis/ICD: Shortness of breath-R06.02; Endocarditis, valve unspecified-I38 Indication: SOB, HV Disease, Dizziness, AO Dilation CPT Codes: Echo Complete w Full Doppler-61710 Patient History: Smoker: Current. Pertinent History: HTN [...] not included)... Ibrahima Meyer DO - 06/13/[address], [address], [place] [address] TRANSTHORACIC ECHOCARDIOGRAM REPORT Patient Name: CANDY BOOTH Reading Physician: [id number] Ibrahima Serra DO Study Date: 06/13/2023 Ordering Provider: [id number] QUAN HUNTER MRN/PID: [id number] Fellow: Nurse: Date of /Age: 5 1970 / 52 years Completions Manager: Ibrahima Valdes Gender: F Additional Staff: Height: 162.56 cm Admit Date: 06/13/2023 Weight: 86.18 kg Admission Status: Outpatient BSA: 1.91 m2 Department Location: [facility] Blood Pressure: 110 /60 mmHg Study Type: TRANSTHORACIC ECHO (TTE) COMPLETE Diagnosis/ICD: Shortness of breath-R06.02; Endocarditis, valve unspecified-I38 Indication: SOB, HV Disease, Dizziness, AO Dilation CPT Codes: Echo Complete w Full Doppler-98119 Patient History: Smoker: Current. Pertinent History: HTN [...] cm2 RA Cornelius (more content not included)... [facility] Work Phone: Auth for Release of Medical Recordson 07-02-2022 Auth for Release of Medical Records [id number]:[id number] Normal [facility] PROF 14(COMP METB)on 022 Albumin [Mass/Vol] 4.2 g/dL Normal 3.4-5.0 [facility] Comment on above: Performed By: #### C MP #### [facility] [address] [place] [address] Dr. Leonides Anders Albumin/Globulin [Mass ratio] 1.3 {ratio} Normal [facility] Comment on above: Performed By: #### C MP #### [facility] [address] [place] [address] Dr. Leonides Anders ALP [Catalytic activity/Vol] 90 U/L Normal 46-116 [facility] Comment on above: Performed By: #### C MP #### [facility] [address] [place] [address] Dr. Leonides Anders ALT [Catalytic activity/Vol] 25 U/L Normal 14-59 [facility] Comment on above: Performed By: #### C MP #### [facility] [address] [place] [address] Dr. Leonides Anders Anion gap [Moles/Vol] 12.1 mmol/L Normal [facility] Comment on above: Performed By: #### C MP #### [facility] [address] [place] [address] Dr. Leonides Anders AST [Catalytic activity/Vol] 20 U/L Normal 15-37 [facility] Comment on above: Performed By: #### C MP #### [facility] [address] [place] [address] Dr. Leonides Anders Bilirubin [Mass/Vol] 0.3 mg/dL Normal 0.2-1.0 [facility] Comment on above: Performed By: #### C MP #### [facility] [address] [place] [address] [address] Leonides Anders Calcium [Mass/Vol] 9.4 mg/dL Normal 8.5-10.1 [facility] Comment on above: Performed By: #### C MP #### [facility] [address] [place] [address] Dr. Leonides Anders Chloride [Moles/Vol] 99 mmol/L Normal 98-107 [facility] Comment on above: Performed By: #### C MP #### [facility] [address] [place] [address] Dr. Leonides Anders CO2 [Moles/Vol] 26.2 mmol/L Normal 21.0-32.0 [facility] Comment on above: Performed By: #### C MP #### [facility] [address] [place] [address] Dr. Leonides Anders Creatinine [Mass/Vol] 0.68 mg/dL Normal 0.55-1.02 [facility] Comment on above: Performed By: #### C MP #### [facility] [address] [place] [address] Dr. Leonides Anders EGFR-AF SPANISH >60 Normal >=60 [facility] Comment on above: Performed By: #### C MP #### [facility] [address] [place] [address] Dr. Leonides Anders EGFR-NON AF SPANISH >60 Normal >=60 [facility] Comment on above: Performed By: #### C MP #### [facility] [address] [place] [address] Dr. Leonides Anders Globulin (S) [Mass/Vol] 3.3 g/dL Normal [facility] Comment on above: Performed By: #### C MP #### [facility] [address] [place] [address] [address] Leonides Anders Glucose [Mass/Vol] 97 mg/dL Normal 74-106 [facility] Comment on above: Performed By: #### C MP #### [facility] [address] [place] [address] [address] Leonides Anders Potassium [Moles/Vol] 4.3 mmol/L Normal 3.5-5.1 [facility] Comment on above: Performed By: #### C MP #### [facility] [address] [place] [address] Dr. Leonides Anders Protein [Mass/Vol] 7.5 g/dL Normal 6.4-8.2 [facility] Comment on above: Performed By: #### C MP #### [facility] [address] [place] [address] Dr. Leonides Anders Sodium [Moles/Vol] 133 mmol/L Critically low 136-145 [facility] Comment on above: Performed By: #### C MP #### [facility] [address] [place] [address] Dr. Leonides Anders Urea nitrogen [Mass/Vol] 10.0 mg/dL Normal 7.0-18.0 [facility] Comment on above: Performed By: #### C MP #### [facility] [address] [place] [address] Dr. Leonides Anders Urea nitrogen/Creatinine [Mass ratio] 14.7 mg/mg Normal [facility] Comment on above: Performed By: #### C MP #### [facility] [address] [place] [address] Dr. Leonides Anders CBC AUTO DIFFon 03-25-2022 BASO # 0.1 103/ul Normal 0.0-0.1 [facility] Comment on above: Performed By: #### C BC #### [facility] [address] [place] [address] Dr. Leonides Anders Basophils/100 WBC (Bld) 0.5 % Normal 0.2-2.0 [facility] Comment on above: Performed By: #### C BC #### [facility] [address] [place] [address] Dr. Leonides Anders EO # 0.1 103/ul Normal 0.0-0.7 [facility] Comment on above: Performed By: #### C BC #### [facility] [address] [place] [address] Dr. Leonides Anders Eosinophils/100 WBC (Bld) 1.1 % Normal 0.9-7.0 [facility] Comment on above: Performed By: #### C BC #### [facility] [address] [place] [address] Dr. Leonides Anders Erythrocyte distribution width (RBC) [Ratio] 12.9 % Normal 11.0-15.0 [facility] Comment on above: Performed By: #### C BC #### [facility] [address] [place] [address] Dr. Leonides Anders Hematocrit (Bld) [Volume fraction] 38.8 % Normal 36.0-48.0 [facility] Comment on above: Performed By: #### C BC #### [facility] [address] [place] [address] Dr. Leonides Anders Hemoglobin (Bld) [Mass/Vol] 13.8 g/dL Normal 12.0-16.0 [facility] Comment on above: Performed By: #### C BC #### [facility] [address] [place] [address] Dr. Leonides Anders IG # 0.03 10e3/ul Normal 0.00-0.03 [facility] Comment on above: Performed By: #### C BC #### [facility] [address] [place] [address] Dr. Leonides Anders IG % 0.3 % Normal 0.0-0.5 [facility] Comment on above: Performed By: #### C BC #### [facility] [address] [place] [address] Dr. Leonides Anders LYMPH # 2.5 103/ul Normal 1.2-3.8 [facility] Comment on above: Performed By: #### C BC #### [facility] [address] [place] [address] Dr. Leonides Anders Lymphocytes/100 WBC (Bld) 26.5 % Normal 20.5-60.0 [facility] Comment on above: Performed By: #### C BC #### [facility] [address] [place] [address] Dr. Leonides Anders MANUAL DIFF REQ NO Normal [facility] Comment on above: Performed By: #### C BC #### [facility] [address] [place] [address] Dr. Leonides Anders MCH (RBC) [Entitic mass] 32.0 pg Normal 26.7-34.0 [facility] Comment on above: Performed By: #### C BC #### [facility] [address] [place] [address] Dr. Leonides Anders MCHC (RBC) [Mass/Vol] 35.6 g/dL Critically high 29.9-35.2 [facility] Comment on above: Performed By: #### C BC #### [facility] [address] [place] [address] Dr. Leonides Anders MCV (RBC) [Entitic vol] 90.0 fL Normal 81.0-99.0 [facility] Comment on above: Performed By: #### C BC #### [facility] [address] [place] [address] Dr. Leonides Anders MONO # 0.9 103/ul Critically high 0.3-0.8 [facility] Comment on above: Performed By: #### C BC #### [facility] [address] [place] [address] Dr. Leonides Anders Monocytes/100 WBC (Bld) 9.8 % Normal 1.7-12.0 [facility] Comment on above: Performed By: #### C BC #### [facility] [address] [place] [address] Dr. Leonides Anders NEUT # 5.8 103/ul Normal 1.4-6.5 [facility] Comment on above: Performed By: #### C BC #### [facility] [address] [place] [address] Dr. Leonides Anders Neutrophils/100 WBC (Bld) 61.8 % Normal 43.0-75.0 [facility] Comment on above: Performed By: #### C BC #### [facility] [address] [place] [address] Dr. Leonides Anders Platelet mean volume (Bld) [Entitic vol] 9.5 fL Normal 9.5-13.5 [facility] Comment on above: Performed By: #### C BC #### [facility] [address] [place] [address] Dr. Leonides Anders PLT 255 103/ul Normal 150-450 [facility] Comment on above: Performed By: #### C BC #### [facility] [address] [place] [address] Dr. Leonides Anders RBC 4.31 106/ul Normal 4.20-5.40 [facility] Comment on above: Performed By: #### C BC #### [facility] [address] [place] [address] Dr. Leonides Anders WBC 9.4 103/ul Normal 4.0-11.0 [facility] Comment on above: Performed By: #### C BC #### [facility] [address] [place] [address] Dr. Leonides Anders PROF CHEM 8 (BAS METB)on Anion gap [Moles/Vol] 15.7 mmol/L Normal [facility] Comment on above: Performed By: #### B MP #### [facility] [address] [place] [address] Dr. Leonides Anders Calcium [Mass/Vol] 9.1 mg/dL Normal 8.5-10.1 [facility] Comment on above: Performed By: #### B MP #### [facility] [address] [place] [address] Dr. Leonides Anders Chloride [Moles/Vol] 91 mmol/L Critically low 98-107 [facility] Comment on above: Performed By: #### B MP #### [facility] [address] [place] [address] Dr. Leonides Anders CO2 [Moles/Vol] 22.8 mmol/L Normal 21.0-32.0 [facility] Comment on above: Performed By: #### B MP #### [facility] [address] [address] [address] Leonides Anders Creatinine [Mass/Vol] 0.57 mg/dL Normal 0.55-1.02 [facility] Comment on above: Performed By: #### B MP #### [facility] [address] [address] [address] Leonides Anders EGFR-AF SPANISH >60 Normal >=60 [facility] Comment on above: Performed By: #### B MP #### [facility] [address] [address] [address] Leonides Anders EGFR-NON AF SPANISH >60 Normal >=60 [facility] Comment on above: Performed By: #### B MP #### [facility] [address] [place] [address] Dr. Leonides Anders Glucose [Mass/Vol] 119 mg/dL Critically high 74-106 [facility] Comment on above: Performed By: #### B MP #### [facility] [address] [place] [address] Dr. Leonides Anders Potassium [Moles/Vol] 3.5 mmol/L Normal 3.5-5.1 [facility] Comment on above: Performed By: #### B MP #### [facility] [address] [place] [address] Dr. Leonides Anders Sodium [Moles/Vol] 126 mmol/L Critically low 136-145 [facility] Comment on above: Performed By: #### B MP #### [facility] [address] [address] [address] Leonides Anders Urea nitrogen [Mass/Vol] 4.0 mg/dL Critically low 7.0-18.0 [facility] Comment on above: Performed By: #### B MP #### [facility] [address] [place] [address] Dr. Leonides Anders Urea nitrogen/Creatinine [Mass ratio] 7.0 mg/mg Normal [facility] Comment on above: Performed By: #### B MP #### [facility] [address] [address] [address] Leonides Anders VITAMIN B12on 03-25-2022 Cobalamin (Vitamin B12) [Mass/Vol] 192.0 pg/mL Critically low 193.0-986. 0 [facility] Comment on above: Performed By: #### V ITB12 #### [facility] [address] [address] [address] Leonides Anders RAD - Ultrasound Reporton RAD - Ultrasound Report [id number]:127 Normal [facility] VIT D 1 25 DIHYDROXYon 12-06 Calcitriol(1,25 di-OH Vit D) 57.4 pg/mL Normal 24.8-81.5 [facility] Comment on above: Result Comment: Pl ease note reference interval change Performed By: #### V [id number] ####[facility] [address] [place], [place] [address]Dr. Leonides Anders CBC AUTO DIFFon 12-04-2021 BASO # 0.1 103/ul Normal 0.0-0.1 [facility] Comment on above: Performed By: #### C BC ####[facility] [address] [address]Dr. Leonides Anders Basophils/100 WBC (Bld) 0.5 % Normal 0.2-2.0 [facility] Comment on above: Performed By: #### C BC ####[facility] [address] [address]Dr. Leonides Anders EO # 0.2 103/ul Normal 0.0-0.7 [facility] Comment on above: Performed By: #### C BC ####[facility] [address] [address]Dr. Leonides Anders Eosinophils/100 WBC (Bld) 2.3 % Normal 0.9-7.0 [facility] Comment on above: Performed By: #### C BC ####[facility] [address] [place], [place] [address]Dr. Leonides Anders Erythrocyte distribution width (RBC) [Ratio] 13.6 % Normal 11.0-15.0 [facility] Comment on above: Performed By: #### C BC ####[facility] [address] [place], [place] [address]Dr. Leonides Anders Hematocrit (Bld) [Volume fraction] 42.1 % Normal 36.0-48.0 [facility] Comment on above: Performed By: #### C BC ####[facility] [address] [place], [place] [address]Dr. Leonides Anders Hemoglobin (Bld) [Mass/Vol] 14.4 g/dL Normal 12.0-16.0 [facility] Comment on above: Performed By: #### C BC ####[facility] [address] [place], [place] [address]Dr. Leonides Anders IG # 0.02 10e3/ul Normal 0.00-0.03 [facility] Comment on above: Performed By: #### C BC ####[facility] [address] [place], [place] [address]Dr. Leonides Anders IG % 0.2 % Normal 0.0-0.5 [facility] Comment on above: Performed By: #### C BC ####[facility] [address] [place], [place] [address]Dr. Leonides Anders LYMPH # 3.6 103/ul Normal 1.2-3.8 [facility] Comment on above: Performed By: #### C BC ####[facility] [address] [place], [place] [address]Dr. Leonides Anders Lymphocytes/100 WBC (Bld) 38.3 % Normal 20.5-60.0 [facility] Comment on above: Performed By: #### C BC ####[facility] [address] [place], [place] [address]Dr. Leonides Anders MANUAL DIFF REQ NO Normal [facility] Comment on above: Performed By: #### C BC ####[facility] [address] [id number]. Leonides Chago MCH (RBC) [Entitic mass] 31.0 pg Normal 26.7-34.0 [facility] Comment on above: Performed By: #### C BC ####[facility] [address] [id number]. Leonides Chago MCHC (RBC) [Mass/Vol] 34.2 g/dL Normal 29.9-35.2 [facility] Comment on above: Performed By: #### C BC ####[facility] [address] [id number]. Kanikatorey Anders MCV (RBC) [Entitic vol] 90.5 fL Normal 81.0-99.0 [facility] Comment on above: Performed By: #### C BC ####[facility] [address] [place], [place] [address]Dr. Leonides Anders MONO # 0.8 103/ul Normal 0.3-0.8 [facility] Comment on above: Performed By: #### C BC ####[facility] [address] [place], [place] [address]Dr. Leonides Anders Monocytes/100 WBC (Bld) 8.7 % Normal 1.7-12.0 [facility] Comment on above: Performed By: #### C BC ####[facility] [address] [place], [place] [address]Dr. Kanikatorey Anders NEUT # 4.7 103/ul Normal 1.4-6.5 [facility] Comment on above: Performed By: #### C BC ####[facility] [address] [place], [place] [id number]. Leonides Anders Neutrophils/100 WBC (Bld) 50.0 % Normal 43.0-75.0 [facility] Comment on above: Performed By: #### C BC ####[facility] [address] [place], [place] [address]Dr. Leonides Anders Platelet mean volume (Bld) [Entitic vol] 9.3 fL Critically low 9.5-13.5 [facility] Comment on above: Performed By: #### C BC ####[facility] [address] [place], [place] [address]Vj. Leonides Anders PLT 263 103/ul Normal 150-450 [facility] Comment on above: Performed By: #### C BC ####[facility] [address] [place], [place] [address]Ms. Leonides Anders RBC 4.65 106/ul Normal 4.20-5.40 [facility] Comment on above: Performed By: #### C BC ####[facility] [address] [place], [place] [address]Dn. Leonides Anders WBC 9.5 103/ul Normal 4.0-11.0 [facility] Comment on above: Performed By: #### C BC ####[facility] [address] [place], [place] [address]Fd. Leonides Anders FERRITINon 12-04-2021 Ferritin [Mass/Vol] 69.0 ng/mL Normal 8.0-252.0 [facility] Comment on above: Performed By: #### F ERR, VITB12 #### [facility] [address] [address] [address] Leonides Anders LIPID PROFILEon 12-04-2021 CHOL-HDL RATIO NORM SEE BELOW Normal [facility] Comment on above: Result Comment: 3.3 - 4.4 LOW RISK 4.4 - 7.1 AVERAGE RISK 7.1 - 11.0 MODERATE RISK >11.0 HIGH RISK Performed By: #### C MP, LIPID #### [facility] [address] [address] [address] Leonides Anders Cholesterol [Mass/Vol] 234 mg/dL Critically high <=200 [facility] Comment on above: Performed By: #### C MP, LIPID #### [facility] [address] [address] [address] Leonides Anders Cholesterol in HDL [Mass/Vol] 48 mg/dL Normal 40-60 [facility] Comment on above: Performed By: #### C MP, LIPID #### [facility] [address] [address] [address] Leonides Anders Cholesterol in LDL [Mass/Vol] 150.8 mg/dL Normal [facility] Comment on above: Performed By: #### C MP, LIPID #### [facility] [address] [address] [address] Leonides Anders Cholesterol.total/Chol esterol in HDL [Mass ratio] 4.9 {ratio} Normal [facility] Comment on above: Performed By: #### C MP, LIPID #### [facility] [address] [address] [address] Leonides Anders HDL NORMAL > or = 60 mg/dl - LO W CARDIOVASCULAR RISK <40 mg/dl - HIGH CARDIOVASCULAR RISK Normal [facility] Comment on above: Performed By: #### C MP, LIPID #### [facility] [address] [place] [address] Dr. Leonides Anders LDL CALC NORMAL SEE BELOW Normal [facility] Comment on above: Result Comment: <100 mg/dl OPTIMAL 100 - 129 mg/dl NEAR OR ABOVE OPTIMAL 130 - 159 mg/dl BORDERLINE HIGH 160 - 189 mg/dl HIGH >190 mg/dl VERY HIGH Performed By: #### C MP, LIPID #### [facility] [address] [address] [address] Leonides Anders Triglyceride [Mass/Vol] 176 mg/dL Critically high <=150 [facility] Comment on above: Performed By: #### C MP, LIPID #### [facility] [address] [place] [address] Dr. Leonides Anders VLDL CALC 35.2 mg/dL Normal [facility] Comment on above: Performed By: #### C MP, LIPID #### [facility] [address] [address] [address] Leonides Anders PROF 14(COMP METB)on 022 Albumin [Mass/Vol] 4.3 g/dL Normal 3.4-5.0 [facility] Comment on above: Performed By: #### C MP, LIPID #### [facility] [address] [place] [address] Dr. Leonides Anders Albumin/Globulin [Mass ratio] 1.3 {ratio} Normal [facility] Comment on above: Performed By: #### C MP, LIPID #### [facility] [address] [address] [address] Leonides Anders ALP [Catalytic activity/Vol] 96 U/L Normal 46-116 [facility] Comment on above: Performed By: #### C MP, LIPID #### [facility] [address] [address] [address] Leonides Anders ALT [Catalytic activity/Vol] 27 U/L Normal 14-59 [facility] Comment on above: Performed By: #### C MP, LIPID #### [facility] [address] [address] [address] Leonides Anders Anion gap [Moles/Vol] 12.5 mmol/L Normal [facility] Comment on above: Performed By: #### C MP, LIPID #### [facility] [address] [address] [address] Leonides Anders AST [Catalytic activity/Vol] 16 U/L Normal 15-37 [facility] Comment on above: Performed By: #### C MP, LIPID #### [facility] [address] [address] [address] Leonides Anders Bilirubin [Mass/Vol] 0.3 mg/dL Normal 0.2-1.0 [facility] Comment on above: Performed By: #### C MP, LIPID #### [facility] [address] [address] [address] Leonides Anders Calcium [Mass/Vol] 9.5 mg/dL Normal 8.5-10.1 [facility] Comment on above: Performed By: #### C MP, LIPID #### [facility] [address] [address] [address] Leonides Anders Chloride [Moles/Vol] 98 mmol/L Normal 98-107 [facility] Comment on above: Performed By: #### C MP, LIPID #### [facility] [address] [address] [address] Leonides Anders CO2 [Moles/Vol] 27.5 mmol/L Normal 21.0-32.0 [facility] Comment on above: Performed By: #### C MP, LIPID #### [facility] [address] [address] [address] Leonides Anders Creatinine [Mass/Vol] 0.82 mg/dL Normal 0.55-1.02 [facility] Comment on above: Performed By: #### C MP, LIPID #### [facility] [address] [address] [address] Leonides Anders EGFR-AF SPANISH >60 Normal >=60 [facility] Comment on above: Performed By: #### C MP, LIPID #### [facility] [address] [address] [address] Leonides Anders EGFR-NON AF SPANISH >60 Normal >=60 [facility] Comment on above: Performed By: #### C MP, LIPID #### [facility] [address] [place] [address] Dr. Leonides Anders Globulin (S) [Mass/Vol] 3.4 g/dL Normal [facility] Comment on above: Performed By: #### C MP, LIPID #### [facility] [address] [place] [address] Dr. Leonides Anders Glucose [Mass/Vol] 98 mg/dL Normal 74-106 [facility] Comment on above: Performed By: #### C MP, LIPID #### [facility] [address] [place] [address] Dr. Leonides Anders Potassium [Moles/Vol] 4.0 mmol/L Normal 3.5-5.1 [facility] Comment on above: Performed By: #### C MP, LIPID #### [facility] [address] [place] [address] Dr. Leonides Anders Protein [Mass/Vol] 7.7 g/dL Normal 6.4-8.2 [facility] Comment on above: Performed By: #### C MP, LIPID #### [facility] [address] [address] [address] Leonides Anders Sodium [Moles/Vol] 134 mmol/L Critically low 136-145 [facility] Comment on above: Performed By: #### C MP, LIPID #### [facility] [address] [address] [address] Leonides Anders Urea nitrogen [Mass/Vol] 9.0 mg/dL Normal 7.0-18.0 [facility] Comment on above: Performed By: #### C MP, LIPID #### [facility] [address] [address] [address] Leonides Anders Urea nitrogen/Creatinine [Mass ratio] 11.0 mg/mg Normal [facility] Comment on above: Performed By: #### C MP, LIPID #### [facility] [address] [address] [address] Leonides Anders US SINGLE QUAD RT [...] TUYET JONES Date: 2021-12-04 19:11 Normal [facility] VITAMIN B12on 12-04-2021 Cobalamin (Vitamin B12) [Mass/Vol] 232.0 pg/mL Normal 193.0-986. 0 [facility] Comment on above: Performed By: #### F ERR, VITB12 #### [facility] [address] [address] [address] Leonides Anders Ambulatory Visit Summaryon 0 [...] BURKETT, Ibrahima Willis Primary Care Physician - STEPHEN BURKETT, MAUREEN This Is Your Medications List Contact prescribing [...] anemia Tobacco abuse Vitamin D deficiency Normal [facility] Physician Referralon 022 Physician Referral [id number]:127 Normal [facility] CBC AUTO DIFFon 11-03-2021 BASO # 0.0 103/ul Normal 0.0-0.1 [facility] Comment on above: Performed By: #### C BC #### [facility] [address] [address] [address] Leonides Anders Basophils/100 WBC (Bld) 0.6 % Normal 0.2-2.0 [facility] Comment on above: Performed By: #### C BC #### [facility] [address] [address] [address] Leonides Anders EO # 0.1 103/ul Normal 0.0-0.7 [facility] Comment on above: Performed By: #### C BC #### [facility] [address] [address] [address] Leonides Anders Eosinophils/100 WBC (Bld) 0.9 % Normal 0.9-7.0 [facility] Comment on above: Performed By: #### C BC #### [facility] [address] [address] [address] Leonides Anders Erythrocyte distribution width (RBC) [Ratio] 14.1 % Normal 11.0-15.0 [facility] Comment on above: Performed By: #### C BC #### [facility] [address] [address] [address] Leonides Anders Hematocrit (Bld) [Volume fraction] 44.9 % Normal 36.0-48.0 [facility] Comment on above: Performed By: #### C BC #### [facility] [address] [place] [address] Dr. Leonides Anders Hemoglobin (Bld) [Mass/Vol] 15.4 g/dL Normal 12.0-16.0 [facility] Comment on above: Performed By: #### C BC #### [facility] [address] [place] [address] Dr. Leonides Anders IG # 0.02 10e3/ul Normal 0.00-0.03 [facility] Comment on above: Performed By: #### C BC #### [facility] [address] [place] [address] Dr. Leonides Anders IG % 0.3 % Normal 0.0-0.5 [facility] Comment on above: Performed By: #### C BC #### [facility] [address] [place] [address] Dr. Leonides Anders LYMPH # 1.4 103/ul Normal 1.2-3.8 [facility] Comment on above: Performed By: #### C BC #### [facility] [address] [place] [address] Dr. Leonides Anders Lymphocytes/100 WBC (Bld) 20.3 % Critically low 20.5-60.0 [facility] Comment on above: Performed By: #### C BC #### [facility] [address] [place] [address] Dr. Leonides Anders MANUAL DIFF REQ NO Normal [facility] Comment on above: Performed By: #### C BC #### [facility] [address] [place] [address] Dr. Leonides Anders MCH (RBC) [Entitic mass] 30.6 pg Normal 26.7-34.0 [facility] Comment on above: Performed By: #### C BC #### [facility] [address] [place] [address] Dr. Leonides Anders MCHC (RBC) [Mass/Vol] 34.3 g/dL Normal 29.9-35.2 [facility] Comment on above: Performed By: #### C BC #### [facility] [address] [address] [address] Leonides Anders MCV (RBC) [Entitic vol] 89.3 fL Normal 81.0-99.0 [facility] Comment on above: Performed By: #### C BC #### [facility] [address] [address] [address] Leonides Anders MONO # 0.4 103/ul Normal 0.3-0.8 [facility] Comment on above: Performed By: #### C BC #### [facility] [address] [address] [address] Leonides Anders Monocytes/100 WBC (Bld) 6.3 % Normal 1.7-12.0 [facility] Comment on above: Performed By: #### C BC #### [facility] [address] [place] [address] Dr. Leonides Anders NEUT # 4.9 103/ul Normal 1.4-6.5 [facility] Comment on above: Performed By: #### C BC #### [facility] [address] [place] [address] Dr. Leonides Anders Neutrophils/100 WBC (Bld) 71.6 % Normal 43.0-75.0 [facility] Comment on above: Performed By: #### C BC #### [facility] [address] [place] [address] Dr. Leonides Anders Platelet mean volume (Bld) [Entitic vol] 9.1 fL Critically low 9.5-13.5 [facility] Comment on above: Performed By: #### C BC #### [facility] [address] [place] [address] Dr. Leonides Anders PLT 235 103/ul Normal 150-450 [facility] Comment on above: Performed By: #### C BC #### [facility] [address] [place] [address] Dr. Leonides Anders RBC 5.03 106/ul Normal 4.20-5.40 [facility] Comment on above: Performed By: #### C BC #### [facility] [address] [place] [address] Dr. Leonides Anders WBC 6.8 103/ul Normal 4.0-11.0 [facility] Comment on above: Performed By: #### C BC #### [facility] [address] [address] [address] ABD/PELV W CONon [...] MARGARET PARRA Date: 2021-11-03 10:51 Normal [facility] LACTATE/LACTIC ACIDon 2021 Lactate [Moles/Vol] 0.9 mmol/L Normal 0.4-1.9 [facility] Comment on above: Performed By: #### L ACT ####[facility] [address] [place] [address]Dr. Leonides Anders LIPASEon 11-03-2021 Lipase [Catalytic activity/Vol] 44.0 U/L Critically low 73.0-393.0 [facility] Comment on above: Performed By: #### L IPA, CMP ####[facility] [address] [place], [place] [address]Dr. Leonides Anders PROF 14(COMP METB)on 022 Albumin [Mass/Vol] 4.3 g/dL Normal 3.4-5.0 [facility] Comment on above: Performed By: #### L IPA, CMP ####[facility] [address] [place], [place] [address]Dr. Leonides Anders Albumin/Globulin [Mass ratio] 1.3 {ratio} Normal [facility] Comment on above: Performed By: #### L IPA, CMP ####[facility] [address]we[address] [place], [place] [address]Dr. Leonides Anders ALP [Catalytic activity/Vol] 95 U/L Normal 46-116 [facility] Comment on above: Performed By: #### L IPA, CMP ####[facility] Rwgunk[address]to[address] [place], [place] [address]Dr. Leonides Anders ALT [Catalytic activity/Vol] 20 U/L Normal 14-59 [facility] Comment on above: Performed By: #### L IPA, CMP ####[facility] [address] [place], [place] [address]Dr. Leonides Anders Anion gap [Moles/Vol] 14.9 mmol/L Normal [facility] Comment on above: Performed By: #### L IPA, CMP ####[facility] Edkseubgbn[address] [place], [place] [address]Dr. Leonides Anders AST [Catalytic activity/Vol] 21 U/L Normal 15-37 [facility] Comment on above: Performed By: #### L IPA, CMP ####[facility] [address] [place], [place] [address]Dr. Leonides Anders Bilirubin [Mass/Vol] 0.5 mg/dL Normal 0.2-1.0 [facility] Comment on above: Performed By: #### L IPA, CMP ####[facility] [address]se[address] [place], [place] [address]Dr. Leonides Anders Calcium [Mass/Vol] 9.6 mg/dL Normal 8.5-10.1 [facility] Comment on above: Performed By: #### L IPA, CMP ####[facility] [address] [place] [address]Dr. Leonides Anders Chloride [Moles/Vol] 99 mmol/L Normal 98-107 [facility] Comment on above: Performed By: #### L IPA, CMP ####[facility] [address] [place] [address]Dr. Leonides Anders CO2 [Moles/Vol] 23.1 mmol/L Normal 21.0-32.0 [facility] Comment on above: Performed By: #### L IPA, CMP ####[facility] [address] [place] [address]Dr. Leonides Anders Creatinine [Mass/Vol] 0.69 mg/dL Normal 0.55-1.02 [facility] Comment on above: Performed By: #### L IPA, CMP ####[facility] [address] [place] [address]Dr. Leonides Anders EGFR-AF SPANISH >60 Normal >=60 [facility] Comment on above: Performed By: #### L IPA, CMP ####[facility] [address] [place] [address]Dr. Leonides Anders EGFR-NON AF SPANISH >60 Normal >=60 [facility] Comment on above: Performed By: #### L IPA, CMP ####[facility] [address] [place] [address]Dr. Leonides Anders Globulin (S) [Mass/Vol] 3.4 g/dL Normal [facility] Comment on above: Performed By: #### L IPA, CMP ####[facility] [address] [place] [address]Dr. Leonides Anders Glucose [Mass/Vol] 121 mg/dL Critically high 74-106 T [facility] Comment on above: Performed By: #### L IPA, CMP ####[facility] [address] [place] [address]Dr. Leonides Anders Potassium [Moles/Vol] 4.0 mmol/L Normal 3.5-5.1 [facility] Comment on above: Performed By: #### L IPA, CMP ####[facility] [address] [place] [address]Dr. Leonides Anders Protein [Mass/Vol] 7.7 g/dL Normal 6.4-8.2 [facility] Comment on above: Performed By: #### L IPA, CMP ####[facility] [address] [place] [address]Dr. Leonides Anders Sodium [Moles/Vol] 133 mmol/L Critically low 136-145 [facility] Comment on above: Performed By: #### L IPA, CMP ####[facility] [address] [place] [address]Dr. Leonides Anders Urea nitrogen [Mass/Vol] 6.0 mg/dL Critically low 7.0-18.0 [facility] Comment on above: Performed By: #### L IPA, CMP ####[facility] [address] [place] [address]Dr. Leonides Anders Urea nitrogen/Creatinine [Mass ratio] 8.7 mg/mg Normal [facility] Comment on above: Performed By: #### L IPA, CMP ####[facility] [address] [place] [address]Dr. Leonides Anders TROPONIN, HIGH SENSITIVITYon 11-03-2021 HSTROP 6.0 pg/mL Normal 4.0-51.3 [facility] Comment on above: Result Comment: CUT- OFF POINTS HAVE BEEN ESTABLISHED BASED ON THE FOURTH UNIVERSAL DEFINITIONS OF MYOCARDIAL INFARCTION. THE UPPER REFERENCE LIMIT (URL) OF TROPONIN, DEFINED THE 99TH PERCENTILE OF cTnI DISTRIBUTION IN A REFERENCE POPULATION, HAS BEEN CONFIRMED THE DECISION THRESHOLD FOR [place] DIAGNOSIS. Performed By: #### H NO ####[facility] [address] [place] [address]Dr. 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] Order(s):CBC + DIFF (FOR REMOTE [facility] USE) [SQRCBCDF] Order #: [id number] STANDING COMP METABOLIC PANEL [SQCMP] Order #: [id number] STANDING FERRITIN BLD [SQFERR] Order #: [id number] STANDING IRON + TIBC [SQIRON] Order #: [id number] STANDING VITAMIN B12 BLOOD [SQB12] Order #: [id number] STANDING Prescriptions as of 11/30/2020 - amitriptyline [...] Encounter Status:Closed by MICHELLE ALLISON on 11/30/20 [facility] CNOVSPon 11-08-2020 CNOVSP Visit (SP) Office (H EMASA) CANDY BOOTH ([id number]) 1970 F Date Time Provider Department 11/08/20 1:30 PM HAI MATUTE During your visit today, we recorded the following information about you: Temperature Pulse Respiration Blood pressure 97.2 degrees 94/minute 16/minute 118/79 Weight Height 92.4 kg 1.702 m Hai Matute APRN.CNP 11/08/2020 3:37 PM Signed NAME: Candy Booth CLINIC NO.: [id number] DATE OF SERVICE: November 08, 2020 Referring [...] endoscopy. 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 She has primary complaints of fatigue but [...] cap capsule (more content not included)... Normal [facility] Comp Metabolic Panelon 11-08 Albumin [Mass/Vol] 4.4 g/dL Normal 3.9-4.9 [facility] Comment on above: Performed By: #### F ERR, B12, IRON #### [facility] [address] [place] [id number] ALP [Catalytic activity/Vol] 111 U/L Normal 34-123 [facility] Comment on above: Performed By: #### F ERR, B12, IRON #### [facility] [address] [place], [place] [address] ALT [Catalytic activity/Vol] 7 U/L Normal 7-38 [facility] Comment on above: Performed By: #### F ERR, B12, IRON #### [facility] [address] [place], [place] [address] Anion gap [Moles/Vol] 7 mmol/L Low 9-18 [facility] Comment on above: Performed By: #### F ERR, B12, IRON #### [facility] [address] [place] [address] AST [Catalytic activity/Vol] 17 U/L Normal 13-35 [facility] Comment on above: Performed By: #### F ERR, B12, IRON #### [facility] [address] [place] [address] Bilirubin [Mass/Vol] mg/dL Low 0.2-1.3 [facility] Comment on above: Performed By: #### F ERR, B12, IRON #### [place] [address] [place] [address] Calcium [Mass/Vol] 9.7 mg/dL Normal 8.5-10.2 [facility] Comment on above: Performed By: #### F ERR, B12, IRON #### [place] [address] Chloride [Moles/Vol] 100 mmol/L Normal 97-105 [facility] Comment on above: Performed By: #### F ERR, B12, IRON #### [place] [address] [place] [phone] CO2 [Moles/Vol] 26 mmol/L Normal 22-30 [facility] Comment on above: Performed By: #### F ERR, B12, IRON #### [place] [address] [place] [address] Creatinine [Mass/Vol] 0.63 mg/dL Normal 0.58-0.96 [facility] Comment on above: Performed By: #### F ERR, B12, IRON #### [place] [address] [place] [address] eGFR- Amer. >60 Normal [facility] Comment on above: Performed By: #### F ERR, B12, IRON #### [place] [address] [place] [address] eGFR-All Other Races >60 Normal [facility] Comment on above: Result Comment: eGFR (Estimated [...] By: #### F ERR, B12, IRON #### [facility] [address] [place], [place] [address] Glucose [Mass/Vol] 104 mg/dL High 74-99 [facility] Comment on above: Result Comment: The [employer] (ADA) provides guidance for cutoff [...] Standards of Medical Care in Diabetes 2016, [place] [employer]. Diabetes Care. 2016.39(Suppl 1). Performed By: #### F ERR, B12, IRON #### [facility] [address] [place], [place] [address] Potassium [Moles/Vol] 4.4 mmol/L Normal 3.7-5.1 [facility] Comment on above: Performed By: #### F ERR, B12, IRON #### [facility] [address] [place], [place] [address] Protein [Mass/Vol] 6.9 g/dL Normal 6.3-8.0 [facility] Comment on above: Performed By: #### F ERR, B12, IRON #### [facility] [address] [place], [place] [address] Sodium [Moles/Vol] 133 mmol/L Low 136-144 [facility] Comment on above: Performed By: #### F ERR, B12, IRON #### [place] [address] [place], [place] [address] Urea nitrogen [Mass/Vol] 9 mg/dL Normal 7-21 [facility] Comment on above: Performed By: #### F ERR, B12, IRON #### [place] [address] Ferritinon 11-08-2020 Ferritin [Mass/Vol] 13.1 ng/mL Low 14.7-205.1 [facility] Comment on above: Performed By: #### F ERR, B12, IRON #### [place] [address] Iron and TIBCon 11-08-2020 Iron [Mass/Vol] 29 ug/dL Low 41-186 [facility] Comment on above: Performed By: #### F ERR, B12, IRON #### [address] [address] TIBC 405 ug/dL High 232-386 [facility] Comment on above: Performed By: #### F ERR, B12, IRON #### [address] [address] Transferrin Saturatn 7 % Low 15-57 [facility] Comment on above: Performed By: #### F ERR, B12, IRON #### [place] [address] [place] [id number] Remote CBCDIF (for [facility] use o nly)on 11-08-2020 Abs Baso 0.04 k/uL Normal <0.11 [facility] Abs Socorro 0.79 k/uL Normal <0.87 [facility] Abs Neut 8.64 k/uL High 1.45-7.50 [facility] Absolute nRBC <0.01 Normal <0.01 [facility] Basophils/100 WBC (Bld) 0.3 % Normal [facility] DTYPE Auto Diff Normal [facility] Eosinophils (Bld) [#/Vol] 0.11 10*3/uL Normal <0.46 [facility] Eosinophils/100 WBC (Bld) 0.9 % Normal [facility] Erythrocyte distribution width (RBC) [Ratio] 18.0 % High 11.5-15.0 [facility] Hematocrit (Bld) [Volume fraction] 34.8 % Low 36.0-46.0 [facility] Hemoglobin (Bld) [Mass/Vol] 11.2 g/dL Low 11.5-15.5 [facility] Lymphocytes (Bld) [#/Vol] 2.16 10*3/uL Normal 1.00-4.00 [facility] Lymphocytes/100 WBC (Bld) 18.4 % Normal [facility] MCH 25.5 pG Low 26.0-34.0 [facility] MCHC (RBC) [Mass/Vol] 32.2 g/dL Normal 30.5-36.0 [facility] MCV (RBC) [Entitic vol] 79.1 fL Low 80.0-100.0 [facility] Monocytes/100 WBC (Bld) 6.7 % Normal [facility] Neutrophils/100 WBC (Bld) 73.7 % Normal [facility] NRBCs 0.0 /100 WBC Normal 0 [facility] Platelet mean volume (Bld) [Entitic vol] 9.3 fL Normal 9.0-12.7 [facility] Platelets (Bld) [#/Vol] 253 10*3/uL Normal 150-400 [facility] RBC (Bld) [#/Vol] 4.40 10*6/uL Normal 3.90-5.20 [facility] WBC (Bld) [#/Vol] 11.74 10*3/uL High 3.70-11.00 [facility] Vitamin B12on 11-08-2020 Cobalamin (Vitamin B12) [Mass/Vol] 236 pg/mL Normal 232-1245 [facility] Comment on above: Performed By: #### F ERR, B12, IRON #### [facility] [address] [place], [place] [address] [place] 11-02-2020 CNPN Telephone (HEMASA) CANDY BOOTH ([id number]) 1970 F Date Time Provider Department 11/02/20 [...] Fully Assessed Reason for Visit: Lab Orders [6298] Primary Visit Diagnosis:Megaloblastic anemia due to vitamin [...] Encounter Status:Closed by ANALISA TAI on 11/06/20 [facility] CNNURSEon 10-11-2020 [facility] (HEMASA[facility] CANDY BOOTH ([id number]) 1970 F Date Time Provider Department 10/11/20 4:00 PM [facility]AN[facility] NURSE PAUL LINDSAY During your visit today, we recorded the following information about you: Analisa Tai 10/11/2020 4:09 PM Signed Patient Identification confirmed: yes. Injection given and documented on JUL per provider order. Analisa Tai Referring Provider: JAY AMAYA [[id number]] Allergies As of Date: 10/11/2020 Noted Allergy [...] Maame-en-Y gastric bypass [Z98.84] Order(s):TREATMENT PARAMETER-NOT NEEDED [3272022] Order #: [id number]: 1 [facility] [3703453] Order #: [id number]: 1 STANDING [] cyanocobalamin 1,000 mcg injectionDisp: [...] on JUL per provider order. August Zaire Prescriptions ordered this encounter Disp Refills Start End CYANOCOBALAMIN (VIT B-12) 1,000 MCG/* 10/11/2020 10/11/2020 Route: INTRAMUSCULA Encounter Status:Closed by ZAIREAugust on 10/11/20 [facility] CNOVSPon 10-11-2020 CNOVSP Visit (SP) Office (H EMASA) CANDY BOOTH ([id number]) 1970 F Date Time Provider Department 10/11/20 3:15 PM JAY AMAYA During your visit today, we recorded the following information about you: Temperature Pulse Respiration Blood pressure 96.9 degrees 120/minute 16/minute 111/60 Weight Height 92.3 kg 1.702 m Jay Amaya MD 10/21/2020 6:59 PM Signed NAME: Candy Booth CLINIC NO.: [id number] DATE OF SERVICE: October 11, 2020 Referring Provider: Maureen Mitchell Consultation requested by Dr. Mitchell for an opinion regarding Ms. Candy Fisheron, and my final recommendations will be communicated [...] endoscopy. 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 Normal [facility] Comp Metabolic Panelon 10-11 Albumin [Mass/Vol] 4.2 g/dL Normal 3.9-4.9 [facility] ALP [Catalytic activity/Vol] 102 U/L Normal 34-123 [facility] ALT [Catalytic activity/Vol] 7 U/L Normal 7-38 [facility] Anion gap [Moles/Vol] 10 mmol/L Normal 9-18 [facility] AST [Catalytic activity/Vol] 19 U/L Normal 13-35 [facility] Bilirubin [Mass/Vol] mg/dL Low 0.2-1.3 [facility] Calcium [Mass/Vol] 9.7 mg/dL Normal 8.5-10.2 [facility] Chloride [Moles/Vol] 98 mmol/L Normal 97-105 [facility] CO2 [Moles/Vol] 22 mmol/L Normal 22-30 [facility] Creatinine [Mass/Vol] 0.58 mg/dL Normal 0.58-0.96 [facility] eGFR- Amer. >60 Normal [facility] eGFR-All Other Races >60 Normal [facility] Comment on above: Result Comment: eGFR (Estimated [...] GFR. Glucose [Mass/Vol] 106 mg/dL High 74-99 [facility] Comment on above: Result Comment: The [employer] (ADA) provides guidance for cutoff [...] Standards of Medical Care in Diabetes 2016, [place] [employer]. Diabetes Care. 2016.39(Suppl 1). Potassium [Moles/Vol] 4.2 mmol/L Normal 3.7-5.1 [facility] Protein [Mass/Vol] 7.2 g/dL Normal 6.3-8.0 [facility] Sodium [Moles/Vol] 130 mmol/L Low 136-144 [facility] Urea nitrogen [Mass/Vol] 3 mg/dL Low 7-21 [facility] Ferritinon 10-11-2020 Ferritin [Mass/Vol] 23.6 ng/mL Normal 14.7-205.1 [facility] Comment on above: Performed By: #### I RYAN, B12, SERFOL, FERR #### [place] [address] Folate, Serumon 10-11-2020 Folate [Mass/Vol] 12.7 ng/mL Normal >4.7 [facility] Comment on above: Performed By: #### I RYAN, B12, SERFOL, FERR #### [place] [address] Iron and TIBCon 10-11-2020 Iron [Mass/Vol] 22 ug/dL Low 41-186 [facility] Comment on above: Performed By: #### I RYAN, B12, SERFOL, FERR #### [place] [address] [place] [address] TIBC 386 ug/dL Normal 232-386 [facility] Comment on above: Performed By: #### I RYAN, B12, SERFOL, FERR #### [place] [address] [place] [address] Transferrin Saturatn 6 % Low 15-57 [facility] Comment on above: Performed By: #### I RYAN, B12, SERFOL, FERR #### [place] [address] LDon 10-11-2020 LD 182 U/L Normal 135-214 [facility] Remote CBCDIF (for [facility] use o nly)on 10-11-2020 Abs Baso 0.05 k/uL Normal <0.11 [facility] Abs Socorro 0.67 k/uL Normal <0.87 [facility] Abs Neut 6.73 k/uL Normal 1.45-7.50 [facility] Absolute nRBC <0.01 Normal <0.01 [facility] Basophils/100 WBC (Bld) 0.5 % Normal [facility] DTYPE Auto Diff Normal [facility] Eosinophils (Bld) [#/Vol] 0.13 10*3/uL Normal <0.46 [facility] Eosinophils/100 WBC (Bld) 1.4 % Normal [facility] Erythrocyte distribution width (RBC) [Ratio] 18.4 % High 11.5-15.0 [facility] Hematocrit (Bld) [Volume fraction] 34.7 % Low 36.0-46.0 [facility] Hemoglobin (Bld) [Mass/Vol] 11.0 g/dL Low 11.5-15.5 [facility] Lymphocytes (Bld) [#/Vol] 2.00 10*3/uL Normal 1.00-4.00 [facility] Lymphocytes/100 WBC (Bld) 20.9 % Normal [facility] MCH 25.7 pG Low 26.0-34.0 [facility] MCHC (RBC) [Mass/Vol] 31.7 g/dL Normal 30.5-36.0 [facility] MCV (RBC) [Entitic vol] 81.1 fL Normal 80.0-100.0 [facility] Monocytes/100 WBC (Bld) 7.0 % Normal [facility] Neutrophils/100 WBC (Bld) 70.2 % Normal [facility] NRBCs 0.0 /100 WBC Normal 0 [facility] Platelet mean volume (Bld) [Entitic vol] 9.7 fL Normal 9.0-12.7 [facility] Platelets (Bld) [#/Vol] 338 10*3/uL Normal 150-400 [facility] RBC (Bld) [#/Vol] 4.28 10*6/uL Normal 3.90-5.20 [facility] WBC (Bld) [#/Vol] 9.58 10*3/uL Normal 3.70-11.00 [facility] Vitamin B12on 10-11-2020 Cobalamin (Vitamin B12) [Mass/Vol] 188 pg/mL Low 232-1245 [facility] Comment on above: Performed By: #### I RYAN, B12, SERFOL, FERR #### [facility] [address] [place] [address] FLUORO FOR SURGICAL PROCEDUR ESon 02-09-2018 FLUORO [...] Angeligned by:Callum Salinas MD02/09/18inal result Normal [facility] Surgical Specimenon 02-10-20 Surgical Specimen Invalid Interpretation Code [facility] Comment on above: Result Comment: [place] [id number] [phone] SURGICAL PATHOLOGY REPORTPatient Name: CANDY BOOTH Accession No: [id number] Age Sex: 1970 Location: DIS ORPOOLNONAccount No: [id number] Collected: 02/09/2018Med Rec No: [id number] Received: 02/09/2018Attend Phys: PATRICK REJI Completed: 02/11/2018Perform Phys: PATRICK YOOFINAL DIAGNOSIS:DISC TISSUE, L4-5, LEFT-DEGENERATED CARTILAGE. SIVES/SIVESCLINICAL INFORMATION:L4-5 left HNP. Disk.SPECIMEN:DiscGROSS DESCRIPTION:Specimen container is labeled with the patient's name and designated spine . In formalin are multiple irregular shaggy fragments of villarreal andpink soft and firm tissue measuring in aggregate 3 x 2.5 x 0.5 cm.Majority of tissue is submitted in two cassettes. PUNEET/HUBERTCPT: [id number] ROMERO M.D. 02/11/2018 Electronically signed out by Page 1 of 1 Basic Metabolic Panelon 01-24 Anion gap 3 molar conc 12 mmol/L Normal 7-13 [facility] Calcium mass conc 9.2 mg/dL Normal 8.6-10.2 [facility] Chloride molar conc 102 mmol/L Normal 98-107 [facility] CO2 molar conc 25 mmol/L Normal 22-29 [facility] Creatinine mass conc 0.42 mg/dL Low 0.50-0.90 [facility] GFR/1.73 sq M predicted among blacks MDRD vol rate/area (S/P/Bld) mL/min/{1.73_m2} Normal >60 [facility] Comment on above: Result Comment: >60 mL/min/1.73m2 EGFR, calc. for ages 18 and older using theMDRD formula (not corrected for weight), is valid for stablerenal function. GFR/1.73 sq M.predicted MDRD vol rate/area mL/min/{1.73_m2} Normal >60 [facility] Comment on above: Result Comment: >60 mL/min/1.73m2 EGFR, calc. for ages 18 and older using theMDRD formula (not corrected for weight), is valid for stablerenal function. Glucose mass conc 82 mg/dL Normal 74-109 [facility] Potassium molar conc 4.2 mmol/L Normal 3.5-5.1 [facility] Sodium molar conc 139 mmol/L Normal 132-144 [facility] Urea nitrogen mass conc 6 mg/dL Normal 6-20 [facility] CBC With Platelet No Differe ntialon 02-06-2018 Erythrocyte distribution width Auto Ratio (RBC) 20.2 % Critically high 11.5-14.5 [facility] Hematocrit Auto Volume Fraction (Bld) 36.3 % Low 37.0-47.0 [facility] Hemoglobin mass conc (Bld) 11.5 g/dL Low 12.0-16.0 [facility] MCH Auto Entitic mass (RBC) 24.1 pg Low 27.0-31.3 [facility] MCHC Auto mass conc (RBC) 31.7 % Low 33.0-37.0 [facility] MCV Auto Entitic volume (RBC) 76.0 fL Low 82.0-100.0 [facility] Platelets Auto #/vol (Bld) 203 10*3/uL Normal 130-400 [facility] RBC Auto #/vol (Bld) 4.78 10*6/uL Normal 4.20-5.40 [facility] WBC Auto #/vol (Bld) 4.9 10*3/uL Normal 4.8-10.8 [facility] Partial Thromboplastin Timeo n 02-06-2018 aPTT Coag time (Bld) 26.6 s Normal 21.6-35.4 [facility] Comment on above: Result Comment: Hepa rin Therapeutic Range: 38.8 - 54.6 seconds. Prothrombin Timeon 8 INR Coag RelTime (PPP) 0.9 {INR} Normal [facility] Comment on above: Result Comment: Madhu mmended [...] time (PPP) 9.4 s Low 9.6-12.3 [facility] Type and Screen Capture 3 sc rn cellon 02-06-2018 Bilirubin mass conc PATIENT: EMMY Acuña LOC: BROTHERS BILL# : [id number] : 1970 SEX: FORDERED BY: EMILY LUCERO ORDERED : 02/06/2018 07:42 COLLECTED: 02/06/2018 08:25ORDER : [id number] RECEIVED : 02/06/2018 08:25 --TEST NAME RESULT UNITS RANGES ABN FL STABORH Capture O NEG FAntibody 3 Cell Scrn Captu NEG F Normal [facility] Urinalysis, reflex to cultur constantin 02-06-2018 Bilirubin Ql (U) Negative Normal Negative [facility] Clarity Nom (U) Clear Normal Clear [facility] Color Nom (U) Yellow Normal Straw/[place] [facility] Glucose Ql (U) Negative Normal Negative [facility] Hemoglobin Test strip Ql (U) Negative Normal Negative [facility] Ketones Ql (U) Negative Normal Negative [facility] Leukocyte esterase Test strip Ql (U) Negative Normal Negative [facility] Nitrite Test strip Ql (U) Negative Normal Negative [facility] pH Test strip (U) 6.0 [pH] Normal 5.0-9.0 [facility] Protein Test strip Ql (U) Negative Normal Negative [facility] Specific gravity Relative Density (U) 1.009 Normal 1.005-1.03 [facility] Urine Reflexed to Culture Not Indicated Normal [facility] Urobilinogen Test strip Qn (U) 0.2 {[place]'U}/dL Normal < 2.0 [facility] Vital Signs Date Time Vital Sign Value Performing Clinician Facility 12-18-2023 13:49-0400 Body height 167.64 cm [facility] 12-18-2023 13:49-0400 Body mass index (BMI) [Ratio] 29.3 kg/m2 [facility] 12-18-2023 13:49-0400 Body weight 82.55 kg [facility] 12-18-2023 13:49-0400 Diastolic blood pressure 61 mm[Hg] [facility] 12-18-2023 13:49-0400 Heart rate 128 /min [facility] 12-18-2023 13:49-0400 Systolic blood pressure 85 mm[Hg] [facility] 12-11-2023 16:13-0400 Body height 167.64 cm [facility] 12-11-2023 16:13-0400 Body mass index (BMI) [Ratio] 32 kg/m2 [facility] 12-11-2023 16:13-0400 Body temperature 97 [degF] [facility] 12-11-2023 16:13-0400 Body weight 90 kg [facility] 12-11-2023 16:13-0400 Diastolic blood pressure 78 mm[Hg] [facility] 12-11-2023 16:13-0400 Heart rate 117 /min [facility] 12-11-2023 16:13-0400 Systolic blood pressure 123 mm[Hg] [facility] 10-14-2023 16:06-0400 Body temperature 97.9 [degF] [facility] 10-14-2023 16:06-0400 Heart rate 116 /min [facility] 10-14-2023 16:06-0400 SaO2% (BldA) [Mass fraction] 89 % [facility] 09-22-2023 14:17-0400 Body height 167.64 cm [facility] 09-22-2023 14:17-0400 Diastolic blood pressure 77 mm[Hg] [facility] 09-22-2023 14:17-0400 Heart rate 66 /min [facility] 09-22-2023 14:17-0400 Systolic blood pressure 109 mm[Hg] [facility] 09-12-2023 09:25-0400 Body height 167.64 cm [facility] 09-12-2023 09:25-0400 Body mass index (BMI) [Ratio] 31.3 kg/m2 [facility] 09-12-2023 09:25-0400 Body temperature 97.3 [degF] [facility] 09-12-2023 09:25-0400 Body weight 88 kg [facility] 09-12-2023 09:25-0400 Diastolic blood pressure 68 mm[Hg] [facility] 09-12-2023 09:25-0400 Heart rate 113 /min [facility] 09-12-2023 09:25-0400 Systolic blood pressure 103 mm[Hg] [facility] 08-26-2023 15:11-0400 Body height 167.64 cm [facility] 08-26-2023 15:11-0400 Body mass index (BMI) [Ratio] 30.4 kg/m2 [facility] 08-26-2023 15:11-0400 Body weight 85.5 kg [facility] 08-26-2023 15:11-0400 Diastolic blood pressure 65 mm[Hg] [facility] 08-26-2023 15:11-0400 Heart rate 121 /min [facility] 08-26-2023 15:11-0400 Systolic blood pressure 95 mm[Hg] [facility] 07-15-2023 12:00-0500 Diastolic blood pressure 56 mm[Hg] [address] 07-15-2023 12:00-0500 Heart rate 65 /min [address] 07-15-2023 12:00-0500 Respiratory rate 20 /min [address] 07-15-2023 12:00-0500 Systolic blood pressure 90 mm[Hg] [address] 07-15-2023 11:56-0500 SaO2% (BldA) [Mass fraction] 94 % [address] 07-01-2023 14:27-0500 Diastolic blood pressure 98 mm[Hg] Quan Hunter MD Work Phone: [facility] 07-01-2023 14:27-0500 Heart rate 110 /min Quan Hunter MD Work Phone: [phone] [place] [address] 07-01-2023 14:27-0500 Systolic blood pressure 124 mm[Hg] Quan Hunter MD Work Phone: [facility] 06-13-2023 12:53-0500 Body height 162.[address] 06-13-2023 12:53-0500 Body mass index (BMI) [Ratio] 32.61 kg/m2 [address] 06-13-2023 12:53-0500 Body weight 86.[address] 06-13-2023 12:53-0500 Diastolic blood pressure 60 mm[Hg] [address] 06-13-2023 12:53-0500 Systolic blood pressure 110 mm[Hg] [address] 05-27-2023 14:04-0500 Body height 162.6 cm Quan Hunter MD Work Phone: [facility] 05-27-2023 14:04-0500 Body mass index (BMI) [Ratio] 32.77 kg/m2 Quan Hunter MD Work Phone: [facility] 05-27-2023 14:04-0500 Body weight 86.59 kg Quan Hunter MD Work Phone: [facility] 05-27-2023 14:04-0500 Diastolic blood pressure 82 mm[Hg] Quan Hunter MD Work Phone: [facility] 05-27-2023 14:04-0500 Heart rate 112 /min Quan Hunter MD Work Phone: [facility] 05-27-2023 14:04-0500 Systolic blood pressure 122 mm[Hg] Quan Hunter MD Work Phone: [facility] 03-13-2023 15:30-0400 Body height 167.64 cm Maureen Mitchell Other [employer] Other 03-13-2023 15:30-0400 Body mass index (BMI) [Ratio] 30.99 kg/m2 Maureen Mitchell Other [employer] Other 03-13-2023 15:30-0400 Body weight 87.09 kg Maureen Mitchell Other [employer] Other 03-13-2023 15:30-0400 Diastolic blood pressure 67 mm[Hg] Maureen Mitchell Other [employer] Other 03-13-2023 15:30-0400 Systolic blood pressure 106 mm[Hg] Maureen Mitchell Other [employer] Other 07-30-2022 15:45-0500 Body height 167.64 cm Maureen Mitchell Other [employer] Other 07-30-2022 15:45-0500 Body mass index (BMI) [Ratio] 33.25 kg/m2 Maureen Mitchell Other [employer] Other 07-30-2022 15:45-0500 Body weight 93.44 kg Maureen Mitchell Other [employer] Other 07-30-2022 15:45-0500 Diastolic blood pressure 92 mm[Hg] Maureen Mitchell Other [employer] Other 07-30-2022 15:45-0500 Systolic blood pressure 158 mm[Hg] Maureen Mitchell Other [employer] Other 11-23-2021 14:27-0400 Blood Pressure Location Ibrahima GONZALEZ [facility] 11-23-2021 14:27-0400 Diastolic blood pressure 86 mm[Hg] Ibrahima GONZALEZ [facility] 11-23-2021 14:27-0400 Heart rate 72 /min Ibrahima GONZALEZ [facility] 11-23-2021 14:27-0400 Respiratory rate 16 /min Ibrahima GONZALEZ [facility] 11-23-2021 14:27-0400 Systolic blood pressure 126 mm[Hg] Ibrahima GONZALEZ [facility] Encounters Encounter Date Encounter Type Care Provider Facility Start: 12-30-2023 End: 01-05-2024 Evaluation and management of inpatient SHAIKH BRANDY [facility] Start: 12-18-2023 End: 12-18-2023 ambulatory [facility] Work Phone: Start: 12-18-2023 End: 12-18-2023 Patient encounter procedure [facility] Work Phone: Start: 12-11-2023 End: 12-11-2023 ambulatory [facility] Work Phone: Start: 12-11-2023 End: 12-11-2023 Patient encounter procedure [facility] Physician [facility] Work Phone: Start: 11-11-2023 End: 11-11-2023 ambulatory DARLENE GONZALEZ Not Available Start: 11-10-2023 Non-patient / Non-visit [facility] Physician [facility] Work Phone: Start: 10-22-2023 End: 10-22-2023 ambulatory DOROTHY B APLING Not Available Start: 10-22-2023 End: 10-22-2023 ambulatory DOROTHY B APLING Not Available Start: 10-14-2023 End: 10-14-2023 ambulatory [facility] Work Phone: Start: 10-14-2023 End: 10-14-2023 Patient encounter procedure [facility] Physician [facility] Work Phone: Start: 09-22-2023 End: 09-22-2023 ambulatory [facility] Work Phone: Start: 09-22-2023 End: 09-22-2023 Patient encounter procedure [facility] Physician [facility] Work Phone: Start: 09-12-2023 End: 09-12-2023 ambulatory [facility] Work Phone: Start: 09-12-2023 End: 09-12-2023 Patient encounter procedure [facility] Physician [facility] Work Phone: Start: 09-03-2023 Non-patient / Non-visit [facility] Physician [facility] Work Phone: Start: 08-26-2023 End: 08-26-2023 ambulatory [facility] Work Phone: Start: 08-26-2023 End: 08-26-2023 Patient encounter procedure [facility] Physician [facility] Work Phone: Start: 07-23-2023 Non-patient / Non-visit [facility] Physician [facility] Work Phone: Start: 07-23-2023 Non-patient / Non-visit [facility] Physician [facility] Work Phone: Start: 07-15-2023 End: 07-15-2023 Subsequent hospital visit by physician Jyotsna Herrera[address] [facility] Comment on above: Essential hypertensi on; Shortness of breath; Angina pectoris, unstable (CMS/HCC) Start: 07-15-2023 End: 07-15-2023 ambulatory [facility] Start: 07-07-2023 End: 07-07-2023 ambulatory Maureen Mitchell Other [employer] Other Start: 07-07-2023 Telephone encounter Maureen Mitchell [facility] Start: 07-01-2023 End: 07-01-2023 ambulatory [facility] Start: 07-01-2023 End: 07-01-2023 Office outpatient visit 25 minutes Quan Hunter MD Work Phone: [facility] Comment on above: Angina pectoris, uns table (CMS/HCC) (Primary Dx); Dilation of aorta (CMS/HCC); Essential hypertension; Heart valve disease; Shortness of breath; Smoker; BMI 32.0-32.9,adult Start: 06-19-2023 End: 06-19-2023 ambulatory Maureen Mitchell Other [employer] Other Start: 06-19-2023 Office outpatient vi sit 15 minutes Maureen Mitchell [facility] Start: 06-13-2023 End: 06-13-2023 Subsequent hospital visit by physician Jyotsna Alcala305 Echo/Vasc 3 [facility] Comment on above: Shortness of breath; Heart valve disease; Dizziness; Dilation of aorta (CMS/HCC) Start: 06-13-2023 End: 06-13-2023 ambulatory [facility] Start: 06-02-2023 End: 06-02-2023 ambulatory Maureen Mitchell Other [employer] Other Start: 06-02-2023 Telephone encounter Maureen Mitchell [facility] Start: 05-27-2023 End: 05-27-2023 ambulatory [facility] Start: 05-27-2023 End: 05-27-2023 Office outpatient new 45 minutes Quan Hunter MD Work Phone: [facility] Comment on above: Shortness of breath; Essential hypertension; BMI 32.0-32.9,adult; Smoker; Heart valve disease; Dizziness; Dilation of aorta (CMS/HCC) Start: 05-15-2023 End: 05-15-2023 ambulatory Maureen Mitchell Other [employer] Other Start: 05-15-2023 Telephone encounter Maureen Mitchell [facility] Start: 05-01-2023 End: 05-01-2023 ambulatory Maureen Stephen Other [employer] Other Start: 05-01-2023 Telephone encounter Maureen Mitchell [facility] Start: 04-21-2023 End: 04-21-2023 ambulatory Maureen Stephen Other [employer] Other Start: 04-21-2023 Telephone encounter Maureen Mitchell [facility] Start: 04-03-2023 (Televisit) Televisit Maureen Mitchell [facility] Start: 04-03-2023 End: 04-03-2023 ambulatory Maureen Mitchell Other [employer] Other Start: 04-03-2023 Telephone encounter Maureen Mitchell [facility] Start: 04-01-2023 End: 04-01-2023 ambulatory Maureen Mitchell Other [employer] Other Start: 04-01-2023 Telephone encounter Maureen Mitchell [facility] Start: 03-13-2023 End: 03-13-2023 ambulatory Maureen Mitchell Other [employer] Other Start: 03-13-2023 Office outpatient vi sit 25 minutes Maureen Mitchell [facility] Start: 03-13-2023 Telephone encounter Maureen Mitchell [facility] Start: 02-13-2023 End: 02-13-2023 ambulatory Maureen Mitchell Other [employer] Other Start: 02-13-2023 Telephone encounter Maureen Mitchell [facility] Start: 01-30-2023 End: 01-30-2023 ambulatory Maureen Mitchell Other [employer] Other Start: 01-30-2023 Telephone encounter Maureen Mitchell [facility] Start: 01-16-2023 End: 01-16-2023 ambulatory Maureen Mitchell Other [employer] Other Start: 01-16-2023 Telephone encounter Maureen Mitchell [facility] Start: 12-31-2022 End: 12-31-2022 ambulatory Maureen Mitchell Other [employer] Other Start: 12-31-2022 Telephone encounter Maureen Mitchell [facility] Start: 12-06-2022 End: 12-06-2022 ambulatory Maureen Mitchell Other [employer] Other Start: 12-06-2022 Telephone encounter Maureen Mitchell [facility] Start: 11-18-2022 End: 11-18-2022 ambulatory Maureen Mitchell Other [employer] Other Start: 11-18-2022 Telephone encounter Maureen Mitchell [facility] Start: 11-06-2022 End: 11-06-2022 ambulatory Maureen Mitchell Other [employer] Other Start: 11-06-2022 Telephone encounter Maureen Mitcehll [facility] Start: 09-19-2022 End: 09-19-2022 ambulatory Maureen Mitchell Other [employer] Other Start: 09-19-2022 Telephone encounter Marueen Mitchell [facility] Start: 09-10-2022 End: 09-10-2022 ambulatory Maureen Mitchell Other [employer] Other Start: 09-10-2022 Telephone encounter Maureen Mitchell [facility] Start: 08-22-2022 End: 08-22-2022 ambulatory Maureen Mitchell Other [employer] Other Start: 08-22-2022 Telephone encounter Maureen Mitchell [facility] Start: 08-19-2022 End: 08-19-2022 ambulatory Otoniel Kelly Other [employer] Other Start: 08-19-2022 Telephone encounter Otoniel Kelly [employer] Start: 07-30-2022 End: 07-30-2022 ambulatory Maureen Mitchell Other [employer] Other Start: 07-30-2022 Office outpatient vi sit 25 minutes Maureen Mitchell [facility] Start: 07-25-2022 End: 07-25-2022 ambulatory Maureen Mitchell Other [employer] Other Start: 07-25-2022 Telephone encounter Maureen Mitchell [facility] Start: 07-24-2022 End: 07-24-2022 ambulatory Maureen Mitchell Other [employer] Other Start: 07-24-2022 Telephone encounter Maureen Mitchell [facility] Start: 03-29-2022 End: 03-30-[address] MAUREEN MITCHELL Facility:[facility] Start: 03-29-2022 Adult health examination Maureen Mitchell Other [employer] Other Start: 03-25-2022 End: 03-26-[address] MAUREEN MITCHELL Facility:[facility] Start: 12-28-2021 End: 01-15-2022 ambulatory MAUREEN MITCHELL Facility:[facility] Start: 12-05-2021 Encounter for genera l adult medical examination without abnormal findings DR MAUREEN MITCHELL [facility] Start: 12-04-2021 End: 12-05-[address] IBRAHIMA GONZALEZ Facility:[facility] Start: 12-04-2021 End: 12-05-2021 Encounter for general adult medical examination without abnormal findings DR MAUREEN MITCHELL Facility:[facility] Start: 11-23-2021 End: 11-24-2021 ambulatory Ibrahima GONZALEZ Facility:[facility] Start: 11-23-2021 End: 11-23-2021 Patient encounter procedure Ibrahima GONZALEZ [facility] Start: 11-09-2021 ambulatory Ibrahima CARLOS Facility:[facility] Start: 11-03-2021 End: 11-03-[address] CHONG GUTIERREZ Facility: Start: 02-09-2018 End: 02-09-2018 [facility] Start: 02-06-2018 End: 02-11-2018 Patient encounter [facility] Procedures Date Procedure Procedure Detail Performing Clinician Start: 07-15-2023 CT ANGIO CORONARY ART WITH HEARTFLOW IF SCORE >30% QUAN ABIOSE Start: 07-15-2023 POCT CREATININE AND GFR QUAN ABIOSE Start: 07-15-2023 Cta hrt cornry art/bypass grfts contrst 3d post Quan Hunter MD Work Phone: Start: 07-15-2023 Creatinine blood Interface Unspecifiedprovider Work Phone: Start: 06-13-2023 TRANSTHORACIC ECHO (TTE) COMPLETE QUAN ABIOSE Start: 06-13-2023 Echo tthrc r-t 2d w/wom-mode [...] RT REFLEX TO CULTURE PATRICK REJI Start: 05-26-2017 Colonoscopy Ibrahima [employer] Start: 05-26-2017 Esophagogastroduodenoscopy Ibrahima [employer] Start: 02-09-2016 Substance abuse counseling Maureen Stephen Other Start: 09-20-2014 General examination of patient Maureen Poole paolo Other Start: 09-20-2014 Screening mammography Maureen Stephen Other Appendectomy Ibrahima [employer] Circumferential body lift Mi sybil [employer] Excision of lumbar intervertebral disc [employer] Comment on above: L4-L5 Exploratory laparotomy Marty sincere PANDYAL Maame-en-Y gastrojejunostomy Ibrahima [employer] Screening for malign ant neoplasm of breast Maureen Mitchell Other Total abdominal hyst erectomy with bilateral salpingo-oophorectomy Ibrahima [employer] Plan of Treatment Date Care Activity Detail Author Start: 09-30-2023 End: 09-30-2023 Patient encounter procedure 09/30/2023 10:00 AM EDT Office Visit [facility] [address] [place] [id number] Quan Hunter MD [address] [place], [place] [id number] [facility] Start: 07-01-2023 End: 07-01-2024 CTA Heart and Coronary arteries WO and W contrast IV CT angio coronary art with heartflow if score >30% Imaging Routine Essential hypertension Shortness of breath Angina pectoris, unstable (CMS/HCC) Expected: 07/01/2023 (Approximate), Expires: 07/01/2024 [facility] Service Area Work Phone: Comment on above: Expected: 07/01/2023 (Approximate), Expires: 07/01/2024 Start: 07-01-2023 End: 07-01-2023 Patient encounter procedure 07/01/2023 2:00 PM EST Office Visit [facility] [address] [place] [id number] Quan Hunter MD [address] [facility] [place], [place] [id number] [facility] Start: 05-27-2023 End: 05-27-2024 CT Chest WO contrast CT chest wo IV contrast Imaging Routine Heart valve disease Dilation of aorta (CMS/HCC) Expected: 05/27/2023 (Approximate), Expires: 05/27/2024 [facility] Work Phone: Comment on above: Expected: 05/27/2023 (Approximate), Expires: 05/27/2024 Start: 05-27-2023 End: 05-27-2025 Heart Transthoracic Transthoracic Echo (TTE) Complete Echocardiography Routine Shortness of breath Heart valve disease Dizziness Dilation of aorta (CMS/HCC) Expected: 05/27/2023 (Approximate), Expires: 05/27/2025 [facility] Service Area Work Phone: Comment on above: Expected: 05/27/2023 (Approximate), Expires: 05/27/2025 Start: 01-24-2023 COVID-19 Vaccine ( season) COVID-19 Vaccine ( season) [facility] Start: 01-24-2023 Influenza vaccination Influenza Vacc ine (#1) [facility] Start: 07-08-2021 COVID-19 Vaccine (4 - Pfizer series) COVID-19 Vaccine (4 - Pfizer series) [facility] Start: 2018 Zoster Vaccines (1 o f 2) Zoster Vaccines (1 of 2) [facility] Start: 2008 Screening for malign ant neoplasm of breast Mammogram [facility] Start: 05-17-1997 DTaP/Tdap/Td Vaccine s (1 - Tdap) DTaP/Tdap/Td Vaccines (1 - Tdap) [facility] Start: 1989 Screening for malign ant neoplasm of cervix [facility] Start: 1986 Diabetes mellitus screening Diabetes Screening [facility] Start: 1986 Hepatitis C screening Hepatitis C Sc reening [facility] Start: 1974 Pneumococcal Vaccine : Pediatrics (0 to 5 Years) and At-Risk Patients (6 to 64 Years) (1 - PCV) Pneumococcal Vaccine: Pediatrics (0 to 5 Years) and At-Risk Patients (6 to 64 Years) (1 - PCV) [facility] Start: 1968 HIV screening [facility] Screening [facility] Start: 1968 Lipid panel Lipid Panel [facility] Start: 1968 Screening for malign ant neoplasm of colon [facility] Start: 1968 Screening for osteoporosis Bone Density Scan [facility] Start: 1968 Yearly Adult Physical Yearly Adult P hysical [facility] Comprehensive metabo lic 2000 panel - Serum or Plasma [facility] Patient Education Low back pain in adults [facility] Work Phone: [facility] Immunizations Immunization Date Immunization Notes Care Provider Fa cility 05-13-2021 influenza virus vaccine, unspecified formulation Quan Hunter MD Work Phone: [facility] Work Phone: 08-22-2020 COVID-19 Vaccine Pfi zer - Documentation Purposes Only Maureen Mitchell Other [facility] 08-02-2020 COVID-19 Vaccine Pfi zer - Documentation Purposes Only Maureen Mitchell Other [facility] 04-28-2020 influenza virus vaccine, split virus (incl. purified surface antigen) Maureen Mitchell Other [facility] [employer] Other 04-28-2020 influenza virus vaccine, unspecified formulation [facility] 03-06-2016 influenza virus vaccine, split virus (incl. purified surface antigen) Maureen Mitchell Other [facility] [employer] Other 03-06-2016 influenza virus vaccine, unspecified formulation [facility] Payers Date Payer Category Payer Medicare [id number] 2022 Private Health Insurance [facility] [id number] 2022-Present [address] [place] [address] [id number] 2022 Private Health Insurance [id number] 2021 Private Health Insurance [id number] 2014 Unknown [id number] 1968 Unknown [id number] [id number]. 647 1968 Unknown [id number] 2.16.840.1.011839.3.579.2. 593 1968 Unknown [id number] 2.16.840.1.239655.3.579.2. 593 1968 Unknown [id number] 2.16.840.1.805863.3.579.2. 593 1968 Unknown [id number] 2.16.840.1.342611.3.579.2. 593 1968 Unknown [id number] 2.16.840.1.384710.3.579.2. 593 1968 Unknown [id number] 2.16.840.1.368717.3.579.2. 727 1968 Unknown [id number] 2.16.840.1.595236.3.579.2. 4 1968 Unknown [id number] 2.16.840.1.168863.3.579.2. 1244 1968 Unknown [id number] 2.16.840.1.265907.3.579.2. 9 1968 Unknown [id number] 2.16.840.1.122592.3.579.2. 9 1968 Unknown [id number] 2.16.840.1.687767.3.579.2. 1258 1968 Unknown [id number] 2.16.840.1.160034.3.579.2. 1259 1968 Unknown [id number] 2.16.840.1.091488.3.579.2. 1258 1968 Unknown [id number] 2.16.840.1.221180.3.579.2. 9 1968 Unknown [id number] 2.16.840.1.083121.3.579.2. 1245 1968 Unknown [id number] 2.16.840.1.414980.3.579.2. 1245 1968 Unknown [id number] 2.16.840.1.930654.3.579.2. 175 1959 Private Health Insurance [id number] Private Health Insurance [id number] Self-pay Self Pay [id number] Social History Date Type Detail Facility Start: 11-23-2021 Tobacco smoking status Heavy t obacco smoker (finding) [facility] Tobacco smoking status Never [facility] Start: 05-27-2023 End: 07-01-2023 Sex Assigned At Female [facility] Start: 05-27-2023 End: 09-22-2023 Tobacco smoking status NHIS Occasional tobacco smoker [facility] Work Phone: History of tobacco use Cigarette Smoker [facility] Work Phone: Start: 05-27-2023 End: 07-01-2023 Cigarettes smoked current (pack per day) - Reported 0.5 [facility] Work Phone: Start: 05-27-2023 Tobacco use and exposure Smokeless tobacco non-user [facility] Work Phone: Start: 05-27-2023 Alcohol intake Not Asked [facility] Work Phone: Start: 05-27-2023 Alcohol Comment rarely [facility] Work Phone: Start: 1970 Sex Assigned At Not on file [facility] Work Phone: Start: 05-17-2023 End: 07-15-2023 Exposure to SARS-CoV-2 (event) Not sure [facility] Start: 07-01-2023 Alcohol intake Current drinke r of alcohol (finding) [facility] Work Phone: Start: 06-28-2023 Tobacco smoking stat us NHIS Smoker (finding) [facility] Start: 1970 Sex Assigned At Female F [facility] Functional Status Date Assessment Result Facility 11-23-2021 Functional Status N/A [facility] Clinical Notes 10-11-2020 to 01-02-2024 Result Encounter Note - Quan Hunter MD - 07/15/2023 11:15 AM Chantel Vásquez, TIFFANIE - 07/15/2023 11:15 AM Chantel Vásquez, TIFFANIE - 07/15/2023 11:15 AM Chantel Vásquez RN - 07/15/2023 11:08 AM EST Note Date & Type Note Facility 01-02-2024 Note PROCEDURE: IR EMBOLIZATION VASCULAR ANY HEMORRHAGE 01/01/2024 HISTORY: ORDERING SYSTEM PROVIDED HISTORY: gi bleed TECHNOLOGIST PROVIDED HISTORY: gi bleed, possibly from a marginal ulcer, status post gastric bypass surgery COMPARISON: CTA of the abdomen and pelvis from 01/01/2024. CONTRAST: Isovue 370-78 mL SEDATION: Fentanyl 100 mcg IV for discomfort. Medications were provided and recorded by Radiology nurses. FLUOROSCOPY DOSE AND TYPE: Fluoroscopy time-20.8 minutes. Radiation Exposure Index: DAP cGy*cm2, 14,569. DESCRIPTION OF PROCEDURE: The risks versus benefits and alternatives of the procedure were explained to the patient who gave a written informed consent. Prior to the procedure, the patient was asked to state her full name, and date of . In the procedure room, a timeout was called. The patient identity and procedure to be performed were verified with the patient ID band, the consent, and the marked site. All elements of maximal sterile barrier technique were used. With the patient supine on the fluoroscopy table, the right groin was assessed sonographically and the right common femoral artery targeted. Local anesthesia was administered with 1% lidocaine. A small rosa was placed in the skin. Micropuncture technique was then utilized under direct ultrasound guidance to puncture the artery ; a 0.018 inch guidewire was introduced followed by a 2-in-1 dilator, then exchanged for a 0.035 inch wire and 5 Bahraini introducer sheath. A 5 Bahraini Bren catheter was then used to selectively catheterize the celiac artery and digital angiography was performed in AP and oblique projections. Subsequently, several different catheters were used to attempt selective catheterization of the left gastric artery, ultimately successful with a 5 Bahraini Cobra catheter. Digital angiography of the left gastric artery was then performed. The catheters were then removed, and the left groin common femoral artery sheath was sewn in place and attached to a pressure bag. A standard right groin dressing was placed. FINDINGS: Normal celiac artery anatomy. Extensive postsurgical changes left upper quadrant with multiple surgical clips status post reported Maame-en-Y gastric bypass surgery. Selective angiography left gastric artery shows mucosal enhancement, but no contrast extravasation, pseudoaneurysm or other definite focal branch abnormality/other treatable lesion at this time. IMPRESSION: 1. No active contrast extravasation, pseudoaneurysm or other definite focal branch abnormality or treatable lesion demonstrated from the left gastric artery at this time. Postsurgical changes, as above. 2. Right groin femoral artery sheath left in place. 3. If there is continued clinical concern for active GI bleed, consider repeat angiography or nuclear medicine GI bleeding scan. Interpreted by: Nasir Martinez MD Signed by: Nasir Martinez MD 01/02/24 Final result [facility] 07-15-2023 Miscellaneous Notes CTA shows very minimal atherosclerosis with no significant stenosis. Recommend routine follow-up and continue to current treatment. documented in this encounter [facility] Work Phone: 07-15-2023 Nurse Note Post CCTA pt denies feeling dizzy or lightheaded, denies headache. Steady on feet, skin warm pink and dry. Pt verbalized understanding of increased water intake x24 hours, educated on side effects of medications. HL removed with tip intact, manual pressure held until hemostasis achieved, 2x2 and coban to site. Pt DC home to self care with family [facility] Work Phone: 07-15-2023 Nurse Note Post CCTA [...] her chest hurt documented in this encounter [facility] Work Phone: 07-15-2023 Nurse Note Post CCTA [...] her chest hurt documented in this encounter [facility] Work Phone: 07-15-2023 Progress note Formatting of t his note might be different from the original. CTA shows very minimal atherosclerosis with no significant stenosis. Recommend routine follow-up and continue to current treatment. [facility] Work Phone: 07-15-2023 Nurse Note Pt. Unable to tolerate deep breathing excercises for HR control. She states that holding her breath makes her chest hurt [facility] Work Phone: 07-07-2023 Evaluation note Encounter Date Diagnosis Assessment Notes Jun, Lumbar degenerative disc disease (ICD-10 - M51.36) Jun, Medication management (ICD-10 - Z79.899) [employer] Other 02-06-2024 History of Present illness Narrative* [...] and time. [facility]: 1(930) 262-365802-06-2024 Instructions* Patient Instructions* Paulo Bucio LPN - 07/01/2023 2:[address] Angio Stop carvedilol Start Metoprolol XL 25 mg BID 3 month visit [facility] Work Phone: 1(967) 479-235901-25-2024 Evaluation note* Encounter Date Diagnosis Assessment Notes Treatment Notes Treatment Clinical Notes May, Lumbar degenerative disc disease (ICD-10 - M51.36) OARRS reviewed Medications refilled Refer to Dr. Gonzalez per patient's request. May, Anxiety disorder, unspecified (ICD-10 - F41.9) Medications refilled. [employer] Other 01-08-2024 Evaluation note* Encounter Date Diagnosis Assessment Notes Treatment Notes Treatment Clinical Notes May, Lumbar degenerative disc disease (ICD-10 - M51.36) May, Anxiety disorder, unspecified (ICD-10 - F41.9) [employer] Other 01-02-2024 History of Present illness Narrative* [...] person, place and time. [facility] Work [facility]: 1(138) 347-804801-02-2024 Instructions* Patient Instructions* Paulo Bucio LPN - 05/27/2023 1:45 PM EST Follow up after testing CT Thoracic Echo [facility] Work Phone: 1(771) 912-629612-07-2023 Evaluation note* Encounter Date Diagnosis Assessment Notes Treatment Notes Treatment Clinical Notes Apr, Lumbar degenerative disc disease (ICD-10 - M51.36) [employer] Other 11-09-2023 Evaluation note* Encounter Date Diagnosis [...] worsen to go to ER by calling 011. [employer] Other 11-07-2023 Evaluation note* Encounter Date Diagnosis Assessment Notes Treatment Notes Treatment Clinical Notes Mar, Lumbar degenerative disc disease (ICD-10 - M51.36) [employer] Other 10-19-2023 Evaluation note* Encounter Date Diagnosis Assessment Notes Treatment Notes Treatment Clinical Notes Feb, Anxiety disorder, unspecified (ICD-10 - F41.9) Chronic problem list refill Xanax. Patient states Xanax does completely resolve her symptoms reviewed OARRS report. Feb, Lumbar degenerative disc disease (ICD-10 - M51.36) We will request records from pain management at [place] as far as the MRI and upcoming treatment plan. Reviewed OARRS report. Discussed decreasing amount or frequency of oxycodone. Patient defers to have an upcoming MRI and plan of treatment through pain management. We will monitor further symptoms of overdosing carefully. Feb, Vitamin D deficiency (ICD-10 - E55.9) Lab order sent to [facility] per patient's request Feb, Iron deficiency anemia, unspecified iron deficiency anemia type (ICD-10 - D50.9) As above lab order sent to [facility]. Previously under the care of of Dr. Bañuelos at [facility] Feb, Medication management (ICD-10 - Z79.899) Monitor kidney and liver function based on her chronic medications. [employer] Other 09-21-2023 Evaluation note* Encounter Date Diagnosis Assessment Notes Treatment Notes Treatment Clinical Notes Jan, Anxiety disorder, unspecified (ICD-10 - F41.9) [employer] Other 09-07-2023 Evaluation note* Encounter Date Diagnosis Assessment Notes Treatment Notes Treatment Clinical Notes Jan, Lumbar degenerative disc disease (ICD-10 - M51.36) [employer] Other 08-24-2023 Evaluation note* Encounter Date Diagnosis Assessment Notes Treatment Notes Treatment Clinical Notes Dec, Anxiety disorder, unspecified (ICD-10 - F41.9) [employer] Other 08-08-2023 Evaluation note* Encounter Date Diagnosis Assessment Notes Treatment Notes Treatment Clinical Notes Dec, Lumbar degenerative disc disease (ICD-10 - M51.36) [employer] Other 07-14-2023 Evaluation note* Encounter Date Diagnosis Assessment Notes Treatment Notes Treatment Clinical Notes Nov, Lumbar degenerative disc disease (ICD-10 - M51.36) [employer] Other 06-14-2023 Evaluation note* Encounter Date Diagnosis Assessment Notes Treatment Notes Treatment Clinical Notes Oct, Lumbar degenerative disc disease (ICD-10 - M51.36) [employer] Other 04-27-2023 Evaluation note* Encounter Date Diagnosis Assessment Notes Treatment Notes Treatment Clinical Notes Aug, Left foot pain (ICD-10 - M79.672) Aug, Migraine without status migrainosus, not intractable, unspecified migraine type (ICD-10 - G43.909) Aug, Anxiety disorder, unspecified (ICD-10 - F41.9) Aug, Depression, unspecified (ICD-10 - F32.A) [employer] Other 04-18-2023 Evaluation note* Encounter Date Diagnosis Assessment Notes Treatment Notes Treatment Clinical Notes Aug, Lumbar degenerative disc disease (ICD-10 - M51.36) [employer] Other 03-07-2023 Evaluation note* Encounter Date Diagnosis [...] Pain in left leg (ICD-10 - M79.605) [employer] Other 03-07-2023 Evaluation note* Encounter Date Diagnosis [...] bandaid and further cushioning on L elbow. [employer] Other 07-19-2022 NoteChief Complaint consultation for cholelithiasis HPI Staff 51 year old female presents on consultation form Dr. Mitchell for cholelithiasis. Presented to [facility] ED 11/03 for abdominal cramping, nausea and [...] GI bleeding requiring transfusion and transfer to [place]; she was seen in ED at [facility] for acute onset of nausea/vomiting and crampy [...] - Total abdominal hysterect (more content not included)...[facility] HospitalComment [facility]:Result Comment: Electronically Signed By: CARLOS BURKETT, Ibrahima Mueller\Date and Time Signed: 12/11/21 08:23 [id number] NoteHNO ID: [id number] Author: Hai Matute APRN.SHAUNA Service: ? Author Type: Nurse Practitioner Type: Progress Notes Filed: 11/08/2020 3:37 PM Note Text: NAME: Candy Booth NO.: [id number] DATE OF SERVICE: November 08, 2020 Referring [...] endoscopy. 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 She has primary complaints of fatigue but [...] as needed. sertraline ( (more content not included)...[facility]05-19-2021 NoteHNO ID: [id number] Author: Jya Amaya MD Service: ? Author Type: Physician Type: Progress Notes Filed: 10/21/2020 6:59 PM Note Text: NAME: Candy Booth [facility] NO.: [id number] DATE OF SERVICE: October 11, 2020 Referring [...] endoscopy. 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 She has primary complaints of fatigue but [...] mg tablet Take 1 (more content not included)...[facility] No data available for this section [facility] Evaluation noteNo InformationNort Designer Material Other Evaluation noteNort Designer Material Other Evaluation note* Diagnosis Shortness of breath Essential hypertension Unspecified essential hypertension BMI 32.0-32.9,adult Smoker Tobacco use disorder Heart valve disease Endocarditis, valve unspecified, unspecified cause Dizziness Dizziness and giddiness Dilation of aorta (CMS/HCC) documented in this encounter [facility] Work Phone: Evaluation note* Diagnosis Shortness of breath Heart valve disease Endocarditis, valve unspecified, unspecified cause Dizziness Dizziness and giddiness Dilation of aorta (CMS/HCC) documented in this encounter [facility] Work Phone: Evaluation note* Diagnosis Angina pectoris, unstable (CMS/HCC)- Primary Intermediate coronary syndrome Dilation of aorta (CMS/HCC) Essential hypertension Unspecified essential hypertension Heart valve disease Endocarditis, valve unspecified, unspecified cause Shortness of breath Smoker Tobacco use disorder BMI 32.0-32.9,adult documented in this encounter [facility] Work Phone: Evaluation note* Diagnosis Essential hypertension Unspecified essential hypertension Shortness of breath Angina pectoris, unstable (CMS/HCC) Intermediate coronary syndrome documented in this encounter [facility] Work Phone: Evaluation note* Diagnosis Essential hypertension Unspecified essential hypertension Shortness of breath Angina pectoris, unstable (CMS/HCC) Intermediate coronary syndrome documented in this encounter [facility] Work Phone: Evaluation note* Diagnosis Onset Date Resolution Status Edema acute HTN (hypertension) acute [facility] Work Phone: Evaluation note* Diagnosis Onset Date Resolution Status Anxiety acute Chronic lumbar pain acute Edema acute HTN (hypertension) acute Lumbar degenerative disc disease acute Peripheral neuropathic pain acute Skin ulcer of elbow acute Anxiety acute Chronic pain syndrome acute Encounter for palliative care acute Peripheral neuropathic pain acute [facility] Work Phone: Evaluation note* Diagnosis Onset Date Resolution Status Anxiety acute Chronic lumbar pain acute Edema acute HTN (hypertension) acute Lumbar degenerative disc disease acute Peripheral neuropathic pain acute Skin ulcer of elbow acute Anxiety acute Chronic pain syndrome acute Encounter for palliative care acute Anxiety acute Chronic pain syndrome acute [facility] Work Phone: Evaluation note* Diagnosis Onset Date Resolution Status Anxiety acute Chronic lumbar pain acute Edema acute HTN (hypertension) acute Lumbar degenerative disc disease acute Peripheral neuropathic pain acute Skin ulcer of elbow acute Anxiety acute Chronic pain syndrome acute Encounter for palliative care acute Anxiety acute Chronic pain syndrome acute Chronic pain syndrome acute Peripheral neuropathic pain acute [facility] Work Phone: Evaluation note* Diagnosis Onset Date Resolution Status Anxiety acute Chronic pain syndrome acute Anxiety acute Chronic pain syndrome acute Depression acute Impaired mobility and ADLs a cute Peripheral neuropathic pain acute Anxiety acute Chronic pain syndrome acute Depression acute Peripheral neuropathic pain acute [facility] Work Phone: Evaluation note* Diagnosis Onset Date Resolution Status Anxiety acute Chronic pain syndrome acute Anxiety acute Chronic pain syndrome acute Depression acute Impaired mobility and ADLs a cute Peripheral neuropathic pain acute Anxiety acute Chronic pain syndrome acute [facility] Work Phone: History general Narrative - Reported* [...] Surgical History diskectomy Hospitalization History see above [employer] Other History general Narrative - ReportedNoEyeview Designer Material Other Hospital Discharge instructions No data available for this section General Surgery [employer] Progress note No data available for this section General Surgery [place] Reason for visit Narrativereferral for pain management / orthoBrainard Designer Material Other Summary Purpose Family History No Family History Records Found Relationship Condition Age at Onset Recorded Date/T suzie father Hypertension Unknown Heart disease Unknown Malignant neoplasm Unknown Diabetes mellitus Unknown Unknown Not Specified Diabetes mellitus Unknown Hypertension Unknown Relationship Condition Age at Onset Recorded Date/T suzie father Hypertension Unknown Heart disease Unknown Malignant neoplasm Unknown Diabetes mellitus Unknown Unknown mother Diabetes mellitus Unknown Hypertension Unknown Advance Directives No Advanced Directives Records Found Advance Directive Response Recorded Date/ Time Advance [...] score >30% Quan Hunter MD [address] [facility], [address] [address] Referral ID Status Reason Start Date Expiration Date Visits Requested Visits Authorized [id number] Pending Review Perform Procedure 07/01/2023 06/30/2024 1 1 Reason *FU 07/07 Lumbar D DD and radiculopathy Diagnosis 1 Lumbar degenerative disc disease (M51.36) Referral Organization [facility] linsusanna Referring Provider First Name Maureen Referring Provider Last Name Stephen Referring Provider Specialty Family [facility] Referred Organization [facility] Referred Provider Darlene Gonzalez Referred Address ,[place], [place],[address] Referred Provider Specialty Orthopedic S urgery Referral Priority Routine General Notes Saadia Joselyn 12:44:56 PM >received today, notes locked, attachments made, referral faxed Specialty Diagnoses / Procedures Referred By Contac t Referred To Contact Radiology Diagnoses Heart valve disease Dilation of aorta ([facility] Procedures CT chest wo IV contrast Quan Hunter MD [address] [facility], [address] [address] Referral ID Status Reason Start Date Expiration Date Visits Requested Visits Authorized [id number] Pending Review Perform Procedure 05/27/2023 05/26/2024 1 1 Specialty Diagnoses / Procedures Referred By Contac t Referred To Contact Cardiology Diagnoses Shortness of breath Heart valve disease Dizziness Dilation of aorta (CMS/HCC) Procedures Transthoracic Echo (TTE) Complete [place] ECHO TTHRC R-T 2D W/WOM-MODE COMPL SPEC&COLR D Quan Hunter MD [address] [facility], [address] [address] Referral ID Status Reason Start Date Expiration Date Visits Requested Visits Authorized [id number] Pending Review Perform Procedure 05/27/2023 05/26/2024 1 [...] ized section and content) DATE CREATED AUTHOR 03/09/2018 [facility] DATE CREATED AUTHOR AUTHOR'S ORGANIZ ATION 08/07/2021 [facility] DATE CREATED AUTHOR AUTHOR'S ORGANIZ ATION 08/17/2021 [facility] DATE CREATED AUTHOR AUTHOR'S ORGANIZ ATION 01/18/2022 [facility] DATE CREATED AUTHOR AUTHOR'S ORGANIZ ATION 04/05/2022 [facility] DATE CREATED AUTHOR AUTHOR'S ORGANIZ ATION 07/02/2022 [facility] DATE CREATED AUTHOR AUTHOR'S ORGANIZ ATION 07/06/2023 [facility] DATE CREATED AUTHOR AUTHOR'S ORGANIZ ATION 11/16/2023 [facility]ical [facility] DATE CREATED AUTHOR AUTHOR'S ORGANIZ ATION 12/11/2023 [facility] DATE CREATED AUTHOR AUTHOR'S ORGANIZ ATION 01/05/2024 [facility] Care Team (unrecognized sect ion [...] December 11, 2023 End: December 11, 2023 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 Relationship Specialty Start Date End Date Maureen Mitchell MD [address] [place] [address] PCP - General Family Medicine 05/27/23 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 Relationship Specialty Start Date End Date Maureen Mitchell MD [address] [place] [address] PCP - General Family Medicine 05/27/23 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 Relationship Specialty Start Date End Date Maureen Mitchell MD [address] [place] [address] PCP - General Family Medicine 05/27/23 Quan Hunter MD [address] [facility] [address], [place] [address] [place] [address] Biomedical Engineering Technologist Cardiology 06/17/23 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 Relationship Specialty Start Date End Date Maureen Mitchell MD [address] [place] [place] [address] PCP - General Family Medicine 05/27/23 Quan Hunter MD [address] [facility], [facility] [address] [place] [address] Biomedical Engineering Technologist Cardiology 06/17/23 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 Relationship Specialty Start Date End Date Maureen Mitchell MD [address] [place] [address] PCP - General Family Medicine 05/27/23 Quan Hunter MD [facility] [address] [facility], [facility] [address] [place] [address] Biomedical Engineering Technologist Cardiology 06/17/23 Team Status: Active Member Role [...] aorta (CMS/HCC) Procedures Transthoracic Echo (TTE) Complete [place] ECHO TTHRC R-T 2D W/WOM-MODE COMPL SPEC&COLR D Quan Hunter MD [address] [facility], [address] [address] Referral ID Status Reason Start Date Expiration Date Visits Requested Visits Authorized [id number] Authorized Perform Procedure 05/27/2023 05/26/2024 1 1 Reason Comments Patient here for follow up Echo Specialty Diagnoses / Procedures Referred By Contac t Referred To Contact Radiology Diagnoses Essential hypertension Shortness of breath Angina pectoris, unstable (CMS/HCC) Procedures CT angio coronary art with heartflow if score >30% Quan Hunter MD [address] [facility], [address] [address] Referral ID Status Reason Start Date Expiration Date Visits Requested Visits Authorized [id number] Authorized Perform Procedure 07/01/2023 06/30/2024 1 1 [...] BE BASED ON THE PRIMARY CLINICAL RECORDS. [email or web address] provides no warranty or guarantee of the accuracy or completeness of information in this document.
[2024-01-06 07:28] LABS: Basophils Percent Auto 0.5 % (0.2-2.0); Eosinophils Absolute Auto 0.1 10^3/uL (0.0-0.7); Eosinophils Percent Auto 1.2 % (0.9-7.0); Immature Granulocytes Abs Auto 0.04 10^3/uL (0.00-0.03); Immature Granulocytes Pct Auto 0.5 % (0.0-0.5); Lymphocytes Absolute Auto 1.1 10^3/uL (1.2-3.8); Lymphocytes Percent Auto 13.6 % (20.5-60.0); Mean Corpuscular HGB Conc 31.4 g/dL (29.9-35.2); Mean Corpuscular Hemoglobin 30.9 pg (26.7-34.0); Mean Corpuscular Volume 98.5 fL (81.0-99.0); Mean Platelet Volume 10.6 fL (9.5-13.5); Monocytes Absolute Auto 0.4 10^3/uL (0.3-0.8); Monocytes Percent Auto 5.6 % (1.7-12.0); Neutrophils Absolute Auto 6.1 10^3/uL (1.4-6.5); Neutrophils Percent Auto 78.6 % (43.0-75.0); Platelet Count 261 10^3/uL (150-450); Red Blood Count 1.94 10^6/uL (4.20-5.40); Red Cell Distribution Width 19.2 % (11.0-15.0); White Blood Count 7.8 10^3/uL (4.0-11.0)
[2024-01-06 07:30] LABS: Hematocrit 19.1 % (36.0-48.0)
[2024-01-06 07:43] LABS: Alanine Aminotransferase 19 U/L (14-59); Albumin Globulin Ratio 0.8; Albumin Level 1.6 g/dL (3.4-5.0); Alkaline Phosphatase 92 U/L (46-116); Anion Gap 8.4; Aspartate Amino Transferase 34 U/L (15-37); Bilirubin Direct 0.1 mg/dL (0.0-0.2); Bilirubin Total 0.3 mg/dL (0.2-1.0); Calcium 7.8 mg/dL (8.5-10.1); Carbon Dioxide 28.5 mmol/L (21.0-32.0); Chloride 109 mmol/L (98-107); Estimated GFR (African America >60 (>=60); Estimated GFR (Non-African Ame >60 (>=60); Globulin 2.1 g/dL; Glucose 106 mg/dL (74-106); Potassium 3.9 mmol/L (3.5-5.1); Sodium 142 mmol/L (136-145); Total Protein 3.7 g/dL (6.4-8.2)
--- NOTE | 2024-01-06 07:52 | ED.GENADUL1 ---
HPI HPI - General Adult General Chief complaint: GI Bleed Stated complaint: ABDOMINAL PAIN Time Seen by Provider: 01/06/24 07:11 Source: patient Mode of arrival: ambulance Limitations: no limitations History of Present Illness HPI narrative: 53-year-old female presents for feeling weak and almost passing out. She was recently at [facility] and at that time had upper endoscopy which appears to have showed an upper GI bleed. That was treated and she was discharged home yesterday after receiving multiple transfusions. She has not had a bowel movement since she is gone home and has not passed any blood but she became very pale and dizzy and weak and called paramedics. They checked her blood sugar and it was appropriate and she was transported here but was found to be hypotensive. states she is much more pale than she was yesterday when she came home. The patient does not complain to me of any pain in her abdomen or chest. Related Data Home Medications ?Medication ?Instructions ?Recorded ?Confirmed pregabalin 200 mg capsule 200 mg PO TID 09/03/23 01/06/24 sertraline 100 mg tablet 200 mg PO DAILY 09/03/23 01/06/24 amitriptyline 75 mg tablet 75 mg PO .qhs 12/28/23 01/06/24 alprazolam 0.5 mg tablet 0.5 mg PO QID 01/06/24 01/06/24 amlodipine 5 mg tablet 5 mg PO DAILY 01/06/24 01/06/24 carvedilol 3.125 mg tablet 6.25 mg PO Q12H 01/06/24 01/06/24 cholecalciferol (vitamin D3) 1,250 1,250 mcg PO .2 x a week 01/06/24 01/06/24 mcg (50,000 unit) capsule eletriptan 40 mg tablet 40 mg PO Q2H PRN migraine headache 01/06/24 01/06/24 eletriptan 40 mg tablet (Relpax) See Rx Instructions PO .COMPLEX 01/06/24 01/06/24 ondansetron 4 mg disintegrating 4 mg PO Q12H 01/06/24 01/06/24 tablet oxycodone 20 mg tablet 20 mg PO Q4H PRN pain 01/06/24 01/06/24 oxycodone 30 mg tablet 30 mg PO Q4H pain 01/06/24 01/06/24 potassium chloride 20 mEq 20 meq PO TID 01/06/24 01/06/24 tablet,extended release sucralfate 1 gram tablet (Carafate) 1 g PO TID 01/06/24 01/06/24 Allergies Allergy/AdvReac Type Severity Reaction Status Date / Time NSAIDS (Non-Steroidal AdvReac Intermediate Gastrointestinal Verified 01/06/24 07:31 Anti-Inflamma Upset Opioid HPI Opioid Management Most Recent Opioid Data: Last Pain Scale 10 01/06/24 07:42 Last Pain Assessment 12/30/23 15:57 Last ED Pain Assessment 01/06/24 07:42 Last ORT Total Score 1 12/28/23 12:02 Last ORT Risk Category Low Risk 12/28/23 12:02 Review of Systems ROS Narrative A ten point review of systems is negative except as noted above. [facility] Medical History (Updated 01/06/24 @ 08:05 by Harry Oscar MD) Thickening of wall of gallbladder ?K82.8 - Other specified diseases of gallbladder (ICD-10) Syncope ?R55 - Syncope and collapse (ICD-10) Peripheral neuropathy ?G62.9 - Polyneuropathy, unspecified (ICD-10) Chronic bilateral back pain ?M54.9 - Dorsalgia, unspecified (ICD-10) ?G89.29 - Other chronic pain (ICD-10) Afib ?I48.91 - Unspecified atrial fibrillation (ICD-10) Aortic aneurysm ?I71.9 - Aortic aneurysm of unspecified site, without rupture (ICD-10) GI bleed ?K92.2 - Gastrointestinal hemorrhage, unspecified (ICD-10) Surgical History (Updated 11/10/23 @ 09:59 by Gabrielle Donaldson RN) Status post abdominoplasty ?Z98.890 - Other specified postprocedural states (ICD-10) Status post abdominoplasty ?Z98.890 - Other specified postprocedural states (ICD-10) H/O hysterectomy with oophorectomy H/O: hysterectomy ?Z90.710 - Acquired absence of both cervix and uterus (ICD-10) Gastric bypass status for obesity ?Z98.84 - Bariatric surgery status (ICD-10) Family History (Updated 12/28/23 @ 11:58 by Armida Serra) Mother Family history of cancer Family history of hypertension Social History (Updated 12/28/23 @ 12:02 by Armida Serra) Within the past year, how often did you have a drink containing alcohol: 2-4 times a month Within the past year, how often did you have six or more drinks on one occasion: never Smoking status: Former smoker Non-prescribed substance use: denies use Previous occupational history: disabled Highest level of school completed/degree received: Master's degree Are you now , , , , never or living with a partner: Little interest or pleasure in doing things: more than half the days Feeling down, depressed, or hopeless: several days Feel stressed/tense/nervous/anxious/difficulty sleeping: rather much Life stressor details: medical condition Exam Narrative Exam Narrative: Nurses note and vital signs reviewed and patient is not hypoxic. General: The patient appears in no apparent respiratory distress. She appears weak. Skin: Warm, dry, significant pallor noted. There is no rash noted. Head: Normocephalic, atraumatic Eye: Conjunctiva are quite pale Ears, Nose, Mouth, and Throat: oral mucosa is moist. Nares patent. Cardiovascular: Regular Rate and Rhythm, minimally tachycardic Respiratory: Patient is in no distress, no accessory muscle use, lungs are clear to auscultation, no wheezing, rales or rhonchi GI: Soft and nontender Musculoskeletal: The patient has no evidence of calf tenderness, no pitting edema, symmetrical pulses noted bilaterally Neurological: A&O x4, normal speech Psychiatric: Cooperative Constitutional Vital Signs, click to edit/add: Last Vital Signs Temp 98 F 01/06/24 07:08 Pulse 102 H 01/06/24 07:08 Resp 20 01/06/24 07:08 BP 59/48 L 01/06/24 07:08 Pulse Ox 96 01/06/24 07:08 Course Vital Signs Vital signs: Vital Signs Temperature 98 F 01/06/24 07:08 Pulse Rate 102 H 01/06/24 07:08 Respiratory Rate 20 01/06/24 07:08 Blood Pressure 59/48 L 01/06/24 07:08 Pulse Oximetry 96 01/06/24 07:08 Temperature 98 F 01/06/24 07:08 Pulse Rate 102 H 01/06/24 07:08 Respiratory Rate 20 01/06/24 07:08 Blood Pressure 59/48 L 01/06/24 07:08 Pulse Oximetry 96 01/06/24 07:08 Medical Decision Making MDM Narrative Medical decision making narrative: The patient is found to be hypotensive with a hemoglobin of 6.0. Very likely she has a return of her upper GI bleed that was recently taken care of at [facility]. She is being given IV fluids here and is being ordered blood. I have spoken to Dr. Hinson at [facility] and he accepts the patient. The patient will be flown by [facility] because of her hypotension and the acute nature of her condition. She was also given IV Protonix. She is stable and agreeable for transfer. Differential Diagnosis Differential Diagnosis: Upper GI bleed, lower GI bleed, anemia Lab Data Lab results reviewed: Yes I reviewed the patient's lab results Labs: Lab Results 01/06/24 Range/Units 07:23 WBC 7.8 (4.0-11.0) 10^3/uL RBC 1.94 L (4.20-5.40) 10^6/uL Hgb 6.0 L* (12.0-16.0) g/dL Hct 19.1 L* (36.0-48.0) % MCV 98.5 (81.0-99.0) fL MCH 30.9 (26.7-34.0) pg MCHC 31.4 (29.9-35.2) g/dL RDW 19.2 H (11.0-15.0) % Plt Count 261 (150-450) 10^3/uL MPV 10.6 (9.5-13.5) fL Neut % (Auto) 78.6 H (43.0-75.0) % Lymph % (Auto) 13.6 L (20.5-60.0) % Angelina % (Auto) 5.6 (1.7-12.0) % Eos % (Auto) 1.2 (0.9-7.0) % Baso % (Auto) 0.5 (0.2-2.0) % Neut # (Auto) 6.1 (1.4-6.5) 10^3/uL Lymph # (Auto) 1.1 L (1.2-3.8) 10^3/uL Angelina # (Auto) 0.4 (0.3-0.8) 10^3/uL Eos # (Auto) 0.1 (0.0-0.7) 10^3/uL Baso # (Auto) 0.0 (0.0-0.1) 10^3/uL Abs Immat Gran (auto) 0.04 H (0.00-0.03) 10^3/uL Imm/Tot Granulo (auto) 0.5 (0.0-0.5) % Sodium 142 (136-145) mmol/L Potassium 3.9 (3.5-5.1) mmol/L Chloride 109 H (98-107) mmol/L Carbon Dioxide 28.5 (21.0-32.0) mmol/L Anion Gap 8.4 BUN 12.0 (7.0-18.0) mg/dL Creatinine 0.63 (0.55-1.02) mg/dL Est GFR ( Amer) >60 (>=60) Est GFR (Non-Af Amer) >60 (>=60) BUN/Creatinine Ratio 19.0 Glucose 106 (74-106) mg/dL Calcium 7.8 L (8.5-10.1) mg/dL Total Bilirubin 0.3 (0.2-1.0) mg/dL Direct Bilirubin 0.1 (0.0-0.2) mg/dL AST 34 (15-37) U/L ALT 19 (14-59) U/L Alkaline Phosphatase 92 (46-116) U/L Total Protein 3.7 L (6.4-8.2) g/dL Albumin 1.6 L (3.4-5.0) g/dL Globulin 2.1 g/dL Albumin/Globulin Ratio 0.8 Imaging Data Chest x-ray: My impression: No acute findings ECG Data Attestation: I personally reviewed and interpreted this ECG as follows: (EKG on my interpretation shows sinus tachycardia with a rate of 103. T waves are flipped laterally) Critical Care Time Critical Care Time Critical Care Time: Yes Total Critical Care Time: 70 Attestation: Due to the high probability of sudden and clinically significant deterioration in the patient's condition he/she required the highest level of my preparedness to intervene urgently I provided critical care time including documentation time, medication orders and management, reevaluation, vital sign assessment, ordering and reviewing of lab tests, ordering and reviewing of x-ray studies, and admission orders. Aggregate critical care time is 70 minutes including only time during which I was engaged in work directly related to his/her care and did not include time spent treating other patients simultaneously. Discharge Plan Discharge Chief Complaint: GI Bleed Clinical Impression: Hypotension, Anemia, Acute upper GI bleed Patient Disposition: [facility] Time of Disposition Decision: 08:05 Discharge Location: [facility] [place] Condition: Critical Mode of Transportation: [facility]
[2024-01-06] MEDS: PANTOPRAZOLE SODIUM 40 MG VIAL IV (08:12)
[2024-01-06] MEDS: 0.9 % SODIUM CHLORIDE 1,000 ML 1000 ML IV ×2 (08:13)
[2024-01-06 08:15] LABS: Internal Control Within Normal Limits; Occult Blood Positive
== END 2024-01-06 08:37 | disposition short-term general hospital (02) ==
PROVIDERS: Emergency Provider Emergency Medicine; PCP Family Medicine
DX: D64.9 Anemia, unspecified (principal); I95.9 Hypotension, unspecified; K92.2 Gastrointestinal hemorrhage, unspecified; Z87.891 Personal history of nicotine dependence
CPT/HCPCS: 36415; 36430; 71045; 80048; 80076; 85025; 86850; 86900; 86901; 86923; 93005; 96374; 99285; G0328; P9016

== ENCOUNTER 2024-01-12 12:55 | Outpatient (OUT) | payer OTHER, MEDICARE, SELFPAY ==
--- NOTE | 2024-01-12 14:22 | PM.CN ---
Consult Note: HPI Data of Consult Patient: new to practice Consult date: 01/12/24 Requesting Physician: Bhupinder Shelton MD Primary Care Provider: Kymberly Gilmore MD Consult Narrative Reason for consult: low back, bilateral lower extremity pain Narrative: 53yof who presents for evaluation. many years of low back and bilateral leg pain. underwent lumbar laminectomy in 2018, has essentially been bedridden since. pain meds managed by palliative care, on oxycodone and xanax. lumbar imaging reviewed, which shows large disc herniation at l4-5 with severe stenosis. of note, recently was discharged from [facility] in [place] for upper GI bleed. cc:: CC: Bhupinder Shelton MD Review of Systems ROS Status of ROS 10 or more systems reviewed and unremarkable except as noted in history and below [facility] Medical History (Updated 01/12/24 @ 14:25 by Bhupinder Shelton MD) Thickening of wall of gallbladder ?K82.8 - Other specified diseases of gallbladder (ICD-10) Syncope ?R55 - Syncope and collapse (ICD-10) Peripheral neuropathy ?G62.9 - Polyneuropathy, unspecified (ICD-10) Chronic bilateral back pain ?M54.9 - Dorsalgia, unspecified (ICD-10) ?G89.29 - Other chronic pain (ICD-10) Afib ?I48.91 - Unspecified atrial fibrillation (ICD-10) Aortic aneurysm ?I71.9 - Aortic aneurysm of unspecified site, without rupture (ICD-10) GI bleed ?K92.2 - Gastrointestinal hemorrhage, unspecified (ICD-10) Surgical History Status post abdominoplasty ?Z98.890 - Other specified postprocedural states (ICD-10) Status post abdominoplasty ?Z98.890 - Other specified postprocedural states (ICD-10) H/O hysterectomy with oophorectomy H/O: hysterectomy ?Z90.710 - Acquired absence of both cervix and uterus (ICD-10) Gastric bypass status for obesity ?Z98.84 - Bariatric surgery status (ICD-10) Family History Mother Family history of cancer Family history of hypertension Social History Within the past year, how often did you have a drink containing alcohol: 2-4 times a month Within the past year, how often did you have six or more drinks on one occasion: never Smoking status: Former smoker Non-prescribed substance use: denies use Previous occupational history: disabled Highest level of school completed/degree received: Master's degree Are you now , , , , never or living with a partner: Little interest or pleasure in doing things: more than half the days Feeling down, depressed, or hopeless: several days Feel stressed/tense/nervous/anxious/difficulty sleeping: rather much Life stressor details: medical condition Meds Home Medications and Allergies Home Medications ?Medication ?Instructions ?Recorded ?Confirmed ?Type pregabalin 200 mg capsule 200 mg PO TID 09/03/23 01/06/24 History sertraline 100 mg tablet 200 mg PO DAILY 09/03/23 01/06/24 History amitriptyline 75 mg tablet 75 mg PO .qhs 12/28/23 01/06/24 History alprazolam 0.5 mg tablet 0.5 mg PO QID 01/06/24 01/06/24 History amlodipine 5 mg tablet 5 mg PO DAILY 01/06/24 01/06/24 History carvedilol 3.125 mg tablet 6.25 mg PO Q12H 01/06/24 01/06/24 History cholecalciferol (vitamin D3) 1,250 1,250 mcg PO .2 x a week 01/06/24 01/06/24 History mcg (50,000 unit) capsule eletriptan 40 mg tablet 40 mg PO Q2H PRN migraine headache 01/06/24 01/06/24 History eletriptan 40 mg tablet (Relpax) See Rx Instructions PO .COMPLEX 01/06/24 01/06/24 History ondansetron 4 mg disintegrating 4 mg PO Q12H 01/06/24 01/06/24 History tablet oxycodone 20 mg tablet 20 mg PO Q4H PRN pain 01/06/24 01/06/24 History oxycodone 30 mg tablet 30 mg PO Q4H pain 01/06/24 01/06/24 History potassium chloride 20 mEq 20 meq PO TID 01/06/24 01/06/24 History tablet,extended release sucralfate 1 gram tablet (Carafate) 1 g PO TID 01/06/24 01/06/24 History Allergies Allergy/AdvReac Type Severity Reaction Status Date / Time NSAIDS (Non-Steroidal AdvReac Intermediate Gastrointestinal Verified 01/06/24 07:31 Anti-Inflamma Upset Exam Narrative Exam Narrative: Psych-alert and oriented x 3. Attentive and appropriate, constitutionally normal, displays normal mood and affect per situation. There are no obvious deficits in memory, reasoning, or intellect.? Skin-no obvious rashes, bruising, erythema noted to the patient's area of pain.? Extremities- extremities are warm with minimal edema and palpable pulses. Lumbar-tenderness to palpation noted in the lumbar spine and paraspinal musculature. Pain is elicited with flexion, extension, and lateral rotation of the lumbar spine. Range of motion is diminished with these motions. Facet loading maneuvers are positive.? Strength-noted to be unremarkable with the exception of decreased strength rated at 4 out of 5 in bilateral quadriceps femoris, anterior tibialis. Sensory-no notable sensory deficits in the bilateral lower extremities to touch or pinprick in all dermatomal distributions with the exception to decreased sensation to the bilateral L4, 5 dermatomal distribution Coordination remains intact.? Gait remains non-antalgic Assessment and Plan Assessment and Plan (1) Lumbar stenosis with neurogenic claudication: Plan 53yof who presents for evaluation. failed conservative measures, as noted. imaging reviewed, as noted. patient was referred here to discuss injection therapy, as her pain meds are managed by palliative care. however, she states that she has not had any evaluation from a surgeon since her mri was completed, with the severe findings noted above. at this point, would like her to be evaluated by dr. kasper before any consideration of injection therapy. she is in agreement. of note, she is very hypotensive today, with bp in 60s/40s. given recent gi bleed history, patient was escorted urgently to the ER. follow up after evaluation with spine surgeon.
== END 2024-01-12 12:56 | disposition home or self-care (01) ==
LOC: PM 12:55
PROVIDERS: PCP Family Medicine; Visit Provider Anesthesiology
DX: M48.062 Spinal stenosis, lumbar region with neurogenic claudication (principal); I95.9 Hypotension, unspecified; Z87.891 Personal history of nicotine dependence
CPT/HCPCS: 36415; 80053; 85025; 99283; G0463

== ENCOUNTER 2024-01-12 14:01 | Emergency (ER) | payer OTHER, MEDICARE, SELFPAY ==
[2024-01-12 14:38] VITALS: BP 95/64; PULSE 94; TEMP 36.8; O2SAT 95; BMI 29.8
[2024-01-12 15:02] LABS: Basophils Absolute Auto 0.1 10^3/uL (0.0-0.1); Basophils Percent Auto 0.7 % (0.2-2.0); Eosinophils Absolute Auto 0.2 10^3/uL (0.0-0.7); Eosinophils Percent Auto 2.3 % (0.9-7.0); Hematocrit 29.7 % (36.0-48.0); Hemoglobin 9.5 g/dL (12.0-16.0); Immature Granulocytes Abs Auto 0.04 10^3/uL (0.00-0.03); Immature Granulocytes Pct Auto 0.5 % (0.0-0.5); Lymphocytes Absolute Auto 1.8 10^3/uL (1.2-3.8); Lymphocytes Percent Auto 20.7 % (20.5-60.0); Mean Corpuscular Hemoglobin 30.2 pg (26.7-34.0); Mean Corpuscular Volume 94.3 fL (81.0-99.0); Mean Platelet Volume 9.9 fL (9.5-13.5); Monocytes Percent Auto 11.3 % (1.7-12.0); Neutrophils Absolute Auto 5.6 10^3/uL (1.4-6.5); Neutrophils Percent Auto 64.5 % (43.0-75.0); Platelet Count 408 10^3/uL (150-450); Red Blood Count 3.15 10^6/uL (4.20-5.40); Red Cell Distribution Width 18.2 % (11.0-15.0); White Blood Count 8.6 10^3/uL (4.0-11.0)
[2024-01-12 15:26] LABS: Alanine Aminotransferase 19 U/L (14-59); Albumin Globulin Ratio 0.7; Albumin Level 2.3 g/dL (3.4-5.0); Alkaline Phosphatase 142 U/L (46-116); Aspartate Amino Transferase 30 U/L (15-37); BUN Creatinine Ratio 17.9; Bilirubin Total 0.4 mg/dL (0.2-1.0); Carbon Dioxide 29.5 mmol/L (21.0-32.0); Chloride 99 mmol/L (98-107); Estimated GFR (African America >60 (>=60); Estimated GFR (Non-African Ame >60 (>=60); Globulin 3.2 g/dL; Glucose 95 mg/dL (74-106); Potassium 3.5 mmol/L (3.5-5.1); Sodium 134 mmol/L (136-145); Total Protein 5.5 g/dL (6.4-8.2)
[2024-01-12 16:13] VITALS: BP 88/70; PULSE 103; O2SAT 95
[2024-01-12 16:53] VITALS: BP 107/75; BP 92/75; BP 96/65; BP 97/65
--- NOTE | 2024-01-12 18:14 | ED.GENADUL1 ---
HPI HPI - General Adult General Chief complaint: Recheck/Abnormal Lab/Rx Stated complaint: WEAKNESS Time Seen by Provider: 01/12/24 14:47 Source: patient Mode of arrival: walk-in Limitations: no limitations History of Present Illness HPI narrative: The patient presenting to us with no acute symptoms she mentioned that she was sent here after she presented to the outpatient clinic to be evaluated for pain management and apparently they found that her blood pressure is low. Although the patient presented to us multiple time with history of bleeding right now she is presenting to us with no active bleeding she was just discharged from the hospital yesterday and she mentioned that she had recently been started on Coreg Related Data Home Medications ?Medication ?Instructions ?Recorded ?Confirmed pregabalin 200 mg capsule 200 mg PO TID 09/03/23 01/06/24 sertraline 100 mg tablet 200 mg PO DAILY 09/03/23 01/06/24 amitriptyline 75 mg tablet 75 mg PO .qhs 12/28/23 01/06/24 alprazolam 0.5 mg tablet 0.5 mg PO QID 01/06/24 01/06/24 amlodipine 5 mg tablet 5 mg PO DAILY 01/06/24 01/06/24 carvedilol 3.125 mg tablet 6.25 mg PO Q12H 01/06/24 01/06/24 cholecalciferol (vitamin D3) 1,250 1,250 mcg PO .2 x a week 01/06/24 01/06/24 mcg (50,000 unit) capsule eletriptan 40 mg tablet 40 mg PO Q2H PRN migraine headache 01/06/24 01/06/24 eletriptan 40 mg tablet (Relpax) See Rx Instructions PO .COMPLEX 01/06/24 01/06/24 ondansetron 4 mg disintegrating 4 mg PO Q12H 01/06/24 01/06/24 tablet oxycodone 20 mg tablet 20 mg PO Q4H PRN pain 01/06/24 01/06/24 oxycodone 30 mg tablet 30 mg PO Q4H pain 01/06/24 01/06/24 potassium chloride 20 mEq 20 meq PO TID 01/06/24 01/06/24 tablet,extended release sucralfate 1 gram tablet (Carafate) 1 g PO TID 01/06/24 01/06/24 Allergies Allergy/AdvReac Type Severity Reaction Status Date / Time NSAIDS (Non-Steroidal AdvReac Intermediate Gastrointestinal Verified 01/06/24 07:31 Anti-Inflamma Upset Opioid HPI Opioid Management Most Recent Opioid Data: Last Pain Scale 10 01/06/24 07:42 Last ED Pain Assessment 01/06/24 07:42 Last ORT Total Score 1 12/28/23 12:02 Last ORT Risk Category Low Risk 12/28/23 12:02 Review of Systems ROS Status of ROS 10 or more systems reviewed and unremarkable except as noted in history and below [facility] Medical History (Updated 01/12/24 @ 16:57 by Isha Holley MD) Thickening of wall of gallbladder ?K82.8 - Other specified diseases of gallbladder (ICD-10) Syncope ?R55 - Syncope and collapse (ICD-10) Peripheral neuropathy ?G62.9 - Polyneuropathy, unspecified (ICD-10) Chronic bilateral back pain ?M54.9 - Dorsalgia, unspecified (ICD-10) ?G89.29 - Other chronic pain (ICD-10) Afib ?I48.91 - Unspecified atrial fibrillation (ICD-10) Aortic aneurysm ?I71.9 - Aortic aneurysm of unspecified site, without rupture (ICD-10) GI bleed ?K92.2 - Gastrointestinal hemorrhage, unspecified (ICD-10) Surgical History Status post abdominoplasty ?Z98.890 - Other specified postprocedural states (ICD-10) Status post abdominoplasty ?Z98.890 - Other specified postprocedural states (ICD-10) H/O hysterectomy with oophorectomy H/O: hysterectomy ?Z90.710 - Acquired absence of both cervix and uterus (ICD-10) Gastric bypass status for obesity ?Z98.84 - Bariatric surgery status (ICD-10) Family History Mother Family history of cancer Family history of hypertension Social History Within the past year, how often did you have a drink containing alcohol: 2-4 times a month Within the past year, how often did you have six or more drinks on one occasion: never Smoking status: Former smoker Non-prescribed substance use: denies use Previous occupational history: disabled Highest level of school completed/degree received: Master's degree Are you now , , , , never or living with a partner: Little interest or pleasure in doing things: more than half the days Feeling down, depressed, or hopeless: several days Feel stressed/tense/nervous/anxious/difficulty sleeping: rather much Life stressor details: medical condition Exam Narrative Exam Narrative: Nurses notes and vital signs reviewed and patient is not hypoxic. General: Well-appearing and in no apparent distress. Skin: Warm, dry, no pallor noted. No rash. Head: Normocephalic, atraumatic. Neck: Supple, non-tender. Eye: Pupils are equal, round and EOMI. No scleral icterus. Ears, Nose, Mouth, and Throat: TM are clear, no nasal mucosal hypertrophy. Oral mucosa is moist, no posterior oropharynx erythema, uvula is mid-line Cardiovascular: Regular Rate and Rhythm without murmur, gallop or rub. Respiratory: No accessory muscle use or respiratory distress. Lungs are clear to auscultation, no wheezing, rales or rhonchi Chest Wall: no tenderness Back: No midline thoracic or lumbar vertebral tenderness. No CVA tenderness Musculoskeletal: normal ROM, no calf or popliteal tenderness, no lower extremity edema/swelling GI: Abdomen is soft, non-distended. Normal bowel sounds. No masses appreciated. No tenderness to palpation. No rebound, guarding, or rigidity noted. Neurological: A&O x4. No cranial nerve dysfunction observed. No truncal ataxia. Moves all extremities. Sensation intact. Psychiatric: Cooperative and interactive. Normal mood and affect. Constitutional Vital Signs, click to edit/add: Last Vital Signs Temp 98.2 F 01/12/24 14:38 Pulse 103 H 01/12/24 16:13 Resp 18 01/12/24 16:13 BP 107/75 01/12/24 16:53 Pulse Ox 95 01/12/24 16:13 O2 Del Method Room Air 01/12/24 14:38 Course Vital Signs Vital signs: Vital Signs Temperature 98.2 F 01/12/24 14:38 Pulse Rate 94 H 01/12/24 14:38 Respiratory Rate 18 01/12/24 14:38 Blood Pressure 95/64 01/12/24 14:38 Pulse Oximetry 95 01/12/24 14:38 Oxygen Delivery Method Room Air 01/12/24 14:38 Temperature 98.2 F 01/12/24 14:38 Pulse Rate 103 H 01/12/24 16:13 Respiratory Rate 18 01/12/24 16:13 Blood Pressure 107/75 01/12/24 16:53 Pulse Oximetry 95 01/12/24 16:13 Oxygen Delivery Method Room Air 01/12/24 14:38 Medical Decision Making MDM Narrative Medical decision making narrative: The patient CBC shows hemoglobin of 9 and she usually have a low hemoglobin around 6 Otherwise the chemistry did not show any acute pathology The patient herself did not have any complaint I did measure her blood pressure and it was adequately low but it was not hypotensive on multiple reading including she was not orthostatic The patient she was just started on Coreg which could affect her blood pressure but she does not have any symptoms at the moment and she was instructed to monitor her blood pressure daily in case of low blood pressure she is to cut her Coreg in half ,also to keep an eye and monitor her bleeding and that could be also another reason The patient right now was just discharged from the hospital yesterday and it is less likely that she is a started bleeding again especially that she does not have any symptoms of any abdominal pain or any active bleeding the low blood pressure could be explained by the new effect of Coreg and with the fact that the patient will be monitoring her symptoms and will be coming back to the ER the patient was discharged with this plan The patient is to follow up with primary care physician in next 2-3 days or to return to the emergency department should any of the signs or symptoms worsen or new symptoms develop. The patient agrees with the following Diagnosis and Treatment plan and the patient will be discharged home. Lab Data Labs: Lab Results 01/12/24 Range/Units 14:53 WBC 8.6 (4.0-11.0) 10^3/uL RBC 3.15 L (4.20-5.40) 10^6/uL Hgb 9.5 L (12.0-16.0) g/dL Hct 29.7 L (36.0-48.0) % MCV 94.3 (81.0-99.0) fL MCH 30.2 (26.7-34.0) pg MCHC 32.0 (29.9-35.2) g/dL RDW 18.2 H (11.0-15.0) % Plt Count 408 (150-450) 10^3/uL MPV 9.9 (9.5-13.5) fL Neut % (Auto) 64.5 (43.0-75.0) % Lymph % (Auto) 20.7 (20.5-60.0) % [place] % (Auto) 11.3 (1.7-12.0) % Eos % (Auto) 2.3 (0.9-7.0) % Baso % (Auto) 0.7 (0.2-2.0) % Neut # (Auto) 5.6 (1.4-6.5) 10^3/uL Lymph # (Auto) 1.8 (1.2-3.8) 10^3/uL [place] # (Auto) 1.0 H (0.3-0.8) 10^3/uL Eos # (Auto) 0.2 (0.0-0.7) 10^3/uL Baso # (Auto) 0.1 (0.0-0.1) 10^3/uL Abs Immat Gran (auto) 0.04 H (0.00-0.03) 10^3/uL Imm/Tot Granulo (auto) 0.5 (0.0-0.5) % Sodium 134 L (136-145) mmol/L Potassium 3.5 (3.5-5.1) mmol/L Chloride 99 (98-107) mmol/L Carbon Dioxide 29.5 (21.0-32.0) mmol/L Anion Gap 9.0 BUN 10.0 (7.0-18.0) mg/dL Creatinine 0.56 (0.55-1.02) mg/dL Est GFR ( Amer) >60 (>=60) Est GFR (Non-Af Amer) >60 (>=60) BUN/Creatinine Ratio 17.9 Glucose 95 (74-106) mg/dL Calcium 9.0 (8.5-10.1) mg/dL Total Bilirubin 0.4 (0.2-1.0) mg/dL AST 30 (15-37) U/L ALT 19 (14-59) U/L Alkaline Phosphatase 142 H (46-116) U/L Total Protein 5.5 L (6.4-8.2) g/dL Albumin 2.3 L (3.4-5.0) g/dL Globulin 3.2 g/dL Albumin/Globulin Ratio 0.7 Discharge Plan Discharge Stand Alone Forms: Portal Instructions Chief Complaint: Recheck/Abnormal Lab/Rx Clinical Impression: Hypotension Patient Disposition: Home, Self-Care Time of Disposition Decision: 16:55 Condition: Good Prescriptions / Home Meds: No Action pregabalin 200 mg capsule 200 mg PO TID sertraline 100 mg tablet 200 mg PO DAILY amitriptyline 75 mg tablet 75 mg PO .qhs carvedilol 3.125 mg tablet 6.25 mg PO Q12H cholecalciferol (vitamin D3) 1,250 mcg (50,000 unit) capsule 1,250 mcg PO .2 x a week eletriptan 40 mg tablet 40 mg PO Q2H PRN (Reason: migraine headache) ondansetron 4 mg tablet,disintegrating 4 mg PO Q12H oxycodone 20 mg tablet 20 mg PO Q4H PRN (Reason: pain) potassium chloride 20 mEq tablet extended release 20 meq PO TID amlodipine 5 mg tablet 5 mg PO DAILY sucralfate [Carafate] 1 gram tablet 1 g PO TID alprazolam 0.5 mg tablet 0.5 mg PO QID oxycodone 30 mg tablet 30 mg PO Q4H eletriptan [Relpax] 40 mg tablet See Rx Instructions .ROUTE .COMPLEX Rx Instructions: take 1 tab at onset of headache; if no relief, may repeat 1 tab after at least 2 hrs; max = 2 tabs/24 hrs Print Language: Omani Instructions: Hypotension (DC) Additional Instructions: measure your blood pressure daily In case of low blood pressure less than 90 systolic the patient to come back to the ER or cut her Coreg in half Also in case of any bleeding the patient to come back to the ER Referrals: Kymberly Gilmore MD [Primary Care Provider] - 1 week Discharge Date/Time: 01/12/24 17:09
== END 2024-01-12 17:09 | disposition home or self-care (01) ==
PROVIDERS: Emergency Provider Emergency Medicine; PCP Family Medicine
DX: I95.9 Hypotension, unspecified (principal); Z87.891 Personal history of nicotine dependence
CPT/HCPCS: 36415; 80053; 85025; 99283

== ENCOUNTER 2024-01-20 14:45 | Outpatient (OUT) | payer OTHER, MEDICARE, SELFPAY ==
[2024-01-20 15:04] LABS: Basophils Absolute Auto 0.1 10^3/uL (0.0-0.1); Basophils Percent Auto 0.6 % (0.2-2.0); Eosinophils Absolute Auto 0.2 10^3/uL (0.0-0.7); Hematocrit 33.1 % (36.0-48.0); Hemoglobin 10.5 g/dL (12.0-16.0); Immature Granulocytes Abs Auto 0.02 10^3/uL (0.00-0.03); Immature Granulocytes Pct Auto 0.3 % (0.0-0.5); Lymphocytes Percent Auto 26.2 % (20.5-60.0); Mean Corpuscular HGB Conc 31.7 g/dL (29.9-35.2); Mean Corpuscular Hemoglobin 29.2 pg (26.7-34.0); Mean Corpuscular Volume 92.2 fL (81.0-99.0); Mean Platelet Volume 9.4 fL (9.5-13.5); Monocytes Absolute Auto 0.6 10^3/uL (0.3-0.8); Monocytes Percent Auto 7.5 % (1.7-12.0); Neutrophils Absolute Auto 4.8 10^3/uL (1.4-6.5); Neutrophils Percent Auto 62.4 % (43.0-75.0); Platelet Count 431 10^3/uL (150-450); Red Blood Count 3.59 10^6/uL (4.20-5.40); Red Cell Distribution Width 16.7 % (11.0-15.0); White Blood Count 7.7 10^3/uL (4.0-11.0)
[2024-01-20 15:24] LABS: Anion Gap 16.2; BUN Creatinine Ratio 3.9; Calcium 9.6 mg/dL (8.5-10.1); Carbon Dioxide 23.5 mmol/L (21.0-32.0); Chloride 98 mmol/L (98-107); Estimated GFR (African America >60 (>=60); Estimated GFR (Non-African Ame >60 (>=60); Glucose 97 mg/dL (74-106); Potassium 3.7 mmol/L (3.5-5.1); Sodium 134 mmol/L (136-145)
== END 2024-01-20 14:46 | disposition home or self-care (01) ==
LOC: LAB 14:46
PROVIDERS: PCP Family Medicine; Visit Provider Family Medicine
DX: D50.0 Iron deficiency anemia secondary to blood loss (chronic) (principal)
CPT/HCPCS: 36415; 80048; 85025

== ENCOUNTER 2024-01-20 15:05 | Emergency (ER) | payer OTHER, MEDICARE, SELFPAY ==
[2024-01-20] VITALS (37 sets, daily range): BP systolic 73–153; BP diastolic 62–99; PULSE 87–129; TEMP 37.1; O2SAT 78–100; BMI 26.5
--- NOTE | 2024-01-20 15:18 | ECG_ITS ---
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
[2024-01-20] MEDS: 0.9 % SODIUM CHLORIDE 1,000 ML 999 ML IV ×2 (15:26→17:27)
[2024-01-20 15:34] LABS: Basophils Absolute Auto 0.1 10^3/uL (0.0-0.1); Basophils Percent Auto 0.7 % (0.2-2.0); Eosinophils Absolute Auto 0.2 10^3/uL (0.0-0.7); Eosinophils Percent Auto 2.7 % (0.9-7.0); Hematocrit 34.3 % (36.0-48.0); Hemoglobin 10.9 g/dL (12.0-16.0); Immature Granulocytes Abs Auto 0.04 10^3/uL (0.00-0.03); Immature Granulocytes Pct Auto 0.5 % (0.0-0.5); Lymphocytes Absolute Auto 2.4 10^3/uL (1.2-3.8); Lymphocytes Percent Auto 28.2 % (20.5-60.0); Mean Corpuscular HGB Conc 31.8 g/dL (29.9-35.2); Mean Corpuscular Hemoglobin 29.4 pg (26.7-34.0); Mean Corpuscular Volume 92.5 fL (81.0-99.0); Monocytes Absolute Auto 0.7 10^3/uL (0.3-0.8); Monocytes Percent Auto 7.8 % (1.7-12.0); Neutrophils Absolute Auto 5.2 10^3/uL (1.4-6.5); Neutrophils Percent Auto 60.1 % (43.0-75.0); Platelet Count 456 10^3/uL (150-450); Red Blood Count 3.71 10^6/uL (4.20-5.40); Red Cell Distribution Width 16.8 % (11.0-15.0); White Blood Count 8.6 10^3/uL (4.0-11.0)
[2024-01-20 15:51] LABS: Anion Gap 18.3; Magnesium 1.9 mg/dL (1.8-2.4)
[2024-01-20 15:52] LABS: Alanine Aminotransferase 24 U/L (14-59); Albumin Globulin Ratio 0.6; Albumin Level 2.9 g/dL (3.4-5.0); Alkaline Phosphatase 205 U/L (46-116); Aspartate Amino Transferase 48 U/L (15-37); BUN Creatinine Ratio 4.8; Bilirubin Total 0.3 mg/dL (0.2-1.0); Calcium 9.3 mg/dL (8.5-10.1); Carbon Dioxide 23.4 mmol/L (21.0-32.0); Chloride 97 mmol/L (98-107); Estimated GFR (African America >60 (>=60); Estimated GFR (Non-African Ame >60 (>=60); Globulin 4.8 g/dL; Glucose 92 mg/dL (74-106); Potassium 3.7 mmol/L (3.5-5.1); Sodium 135 mmol/L (136-145); Total Protein 7.7 g/dL (6.4-8.2)
[2024-01-20] MEDS: OXYCODONE HCL/ACETAMINOPHEN 5MG/325MG 1 TAB PO (16:15)
--- NOTE | 2024-01-20 19:08 | ED_ITS ---
HPI HPI - General Adult General Chief complaint: Weakness Stated complaint: Hypotension Time Seen by Provider: 01/20/24 15:11 Source: patient Mode of arrival: Wheelchair Limitations: no limitations History of Present Illness HPI narrative: 53-year-old female presents to the emergency department with significant other for evaluation of low blood pressure. She went to a follow-up appointment with her provider after being admitted for anemia, GI bleed secondary to gastric ulcer. While she was at the doctor's office, her blood pressure was noted to be 60 systolic. States she does feel little dizzy, lightheaded. Does have history of volume depletion. Patient thought she had been keeping up with her fluids. Denies any chest pain, shortness of breath, abdominal pain, bloody stools. Quality:?As above Severity:?Moderate Timing:?As above Context: Normal setting and activity? Modifying factors:?None Associated symptoms: dizziness Related Data Home Medications ?Medication ?Instructions ?Recorded ?Confirmed pregabalin 200 mg capsule 200 mg PO TID 09/03/23 01/20/24 sertraline 100 mg tablet 200 mg PO DAILY 09/03/23 01/20/24 amitriptyline 75 mg tablet 75 mg PO .qhs 12/28/23 01/20/24 alprazolam 0.5 mg tablet 0.5 mg PO QID 01/06/24 01/20/24 oxycodone 20 mg tablet 20 mg PO Q4H PRN pain 01/06/24 01/20/24 sucralfate 1 gram tablet (Carafate) 1 g PO TID 01/06/24 01/20/24 pantoprazole 40 mg tablet,delayed 40 mg PO Q12H 01/15/24 01/20/24 release Allergies Allergy/AdvReac Type Severity Reaction Status Date / Time NSAIDS (Non-Steroidal AdvReac Intermediate Gastrointestinal Verified 01/06/24 07:31 Anti-Inflamma Upset Opioid HPI Opioid Management Most Recent Opioid Data: Last Pain Scale 9 01/20/24 16:15 Last MAR Pain Assessment 01/20/24 16:15 Last ORT Total Score 1 12/28/23 12:02 Last ORT Risk Category Low Risk 12/28/23 12:02 Review of Systems ROS Constitutional Denies: fever, chills or fatigue Cardiovascular Denies: chest pain, edema or shortness of breath with exertion Respiratory Denies: shortness of breath or cough Gastrointestinal Denies: abdominal pain, nausea or vomiting Genitourinary Denies: painful urination or urinary frequency Musculoskeletal Denies: joint pain Neurological Reports: dizziness; Denies: headache Endocrine Denies: fatigue [facility] Medical History (Updated 01/20/24 @ 19:29 by YOON Silva) Thickening of wall of gallbladder ?K82.8 - Other specified diseases of gallbladder (ICD-10) Syncope ?R55 - Syncope and collapse (ICD-10) Peripheral neuropathy ?G62.9 - Polyneuropathy, unspecified (ICD-10) Chronic bilateral back pain ?M54.9 - Dorsalgia, unspecified (ICD-10) ?G89.29 - Other chronic pain (ICD-10) Afib ?I48.91 - Unspecified atrial fibrillation (ICD-10) Aortic aneurysm ?I71.9 - Aortic aneurysm of unspecified site, without rupture (ICD-10) GI bleed ?K92.2 - Gastrointestinal hemorrhage, unspecified (ICD-10) Surgical History Status post abdominoplasty ?Z98.890 - Other specified postprocedural states (ICD-10) Status post abdominoplasty ?Z98.890 - Other specified postprocedural states (ICD-10) H/O hysterectomy with oophorectomy H/O: hysterectomy ?Z90.710 - Acquired absence of both cervix and uterus (ICD-10) Gastric bypass status for obesity ?Z98.84 - Bariatric surgery status (ICD-10) Family History Mother Family history of cancer Family history of hypertension Social History Within the past year, how often did you have a drink containing alcohol: 2-4 times a month Within the past year, how often did you have six or more drinks on one occasion: never Smoking status: Former smoker Non-prescribed substance use: denies use Previous occupational history: disabled Highest level of school completed/degree received: Master's degree Are you now , , , , never or living with a partner: Little interest or pleasure in doing things: more than half the days Feeling down, depressed, or hopeless: several days Feel stressed/tense/nervous/anxious/difficulty sleeping: rather much Life stressor details: medical condition Exam Constitutional Vital Signs, click to edit/add: Last Vital Signs Temp 98.8 F 01/20/24 15:11 Pulse 105 H 01/20/24 19:23 Resp 16 01/20/24 19:23 BP 153/94 H 01/20/24 19:23 Pulse Ox 93 L 01/20/24 19:23 O2 Del Method Room Air 01/20/24 15:11 Common normals: no apparent distress, oriented x3 and alert HENMT Common normals: normocephalic, head/scalp atraumatic and external nose normal Head and scalp: normocephalic and atraumatic Nose: external nose normal Respiratory Common normals: normal respiratory effort and clear to auscultation bilaterally Auscultation: clear to auscultation bilaterally Cardio Common normals: regular rate, regular rhythm and no murmurs Rate: regular rate Rhythm: regular rhythm GI Common normals: soft to palpation and non-tender Inspection: normal to inspection Palpation: soft Extremity Common normals: normal to inspection Neuro Common normals: oriented x3, no focal motor deficits, no sensory deficits noted and gait normal Sensorium/orientation: alert Psych Common normals: thought process normal, cooperative and affect normal Thought process: normal thought process Course Reevaluation(s) Reevaluation #1: After initial fluids, orthostatic vitals were obtained. She did dip her blood pressure and her heart rate went up into the 120s again. A second liter was ordered. Time: 17:20 Reevaluation #2: Patient asymptomatic. She denies any dizziness. We did get her out of bed again. Heart rate did elevate, but only into the low 100s. Blood pressure maintained. Discussed with patient and significant results, plan, and disposition. Patient and significant are agreeable. Time: 19:12 Vital Signs Vital signs: Vital Signs Temperature 98.8 F 01/20/24 15:11 Pulse Rate 129 H 01/20/24 15:11 Respiratory Rate 18 01/20/24 15:11 Blood Pressure 73/62 L 01/20/24 15:11 Pulse Oximetry 92 L 01/20/24 15:11 Oxygen Delivery Method Room Air 01/20/24 15:11 Temperature 98.8 F 01/20/24 15:11 Pulse Rate 105 H 01/20/24 19:23 Respiratory Rate 16 01/20/24 19:23 Blood Pressure 153/94 H 01/20/24 19:23 Pulse Oximetry 93 L 01/20/24 19:23 Oxygen Delivery Method Room Air 01/20/24 15:11 Medical Decision Making MDM Narrative Medical decision making narrative: This is a pleasant 53-year-old female who presents to the emergency department with report of low blood pressure from her doctor's office. She was there for follow-up appointment status post admission for anemia, gastric ulcer, GI bleeding. Other than feeling a little lightheaded, voices no other complaints. Denies any chest pain, shortness of breath, gross blood in stool. On arrival, afebrile, Patient blood pressure 73/62. Heart rate 129. 92% on room air. History of COPD. She states that her doctor has ordered outpatient oxygen therapy. On exam, nontoxic, well-appearing patient in no distress. Heart regular rate and rhythm. Lung sounds diminished. She is speaking in complete sentences. Abdomen soft, nontender. EKG performed showing tachycardia, otherwise no other acute or concerning findings. Labs reveal no leukocytosis, stable H&H of 10.9 at 34.3, respectively, similar to recent H&H following her GI bleed. No thrombocytopenia, electrolyte imbalance, renal impairment. Glucose 92. LFTs unremarkable. Magnesium 1.9. Patient responded well to IV fluids during ED course. After initial 1 L bolus, hypotension had resolved, heart rate did improve. On orthostatic evaluation, she did dip her blood pressure to around 100 systolic and her heart rate went up into the one hundred teens. A second liter was ordered. She further improved with this liter. Blood pressure was maintained. Heart rat e less than 100. When she did get up, her blood pressure maintained, but her heart rate went up to a little bit above 100. She still satting around 92%. Denies any shortness of breath. Denies any lightheadedness. She was able to ambulate to the bathroom and urinate. Patient feeling comfortable with being discharged to home she states she will push fluids and her significant other will further support that. During record review Discussion with independent historian: Sister and significant other Additional records reviewed: Prior labs showed patient to be Hemoglobin of 6.0 on 01/06/2024. She had hemoglobin of 9.5 on 01/12/2024. Favor dehydration hypovolemia GI bleed less likely based on history and physical exam, hemoglobin and hematocrit ALLY less likely based on lab testing Additional tests and interventions ECG, SEE BELOW IV fluids: Fluid resuscitation, hydration Reevaluation: See ED course Disposition ? The patient was discharged. Plan: Patient will be discharged to home. Condition at time of disposition: stable and improved Advised to push fluids ? Advised to follow up with primary provider. Advised to return for any worsening and/or development of new, concerning signs or symptoms Admission was considered based on the initial low blood pressure. However she responded very well to IV fluids, was asymptomatic at time of disposition on ambulating PLEASE NOTE: Portions of the medical record may have been produced using electronic pharmacy resource tech and may contain errors with respect to translation of words which may not have been identified prior to finalization of the chart. Medical Records Medical records reviewed: Yes I reviewed the patient's medical records Lab Data Lab results reviewed: Yes I reviewed the patient's lab results Labs: Lab Results 01/20/24 Range/Units 15:18 WBC 8.6 (4.0-11.0) 10^3/uL RBC 3.71 L (4.20-5.40) 10^6/uL Hgb 10.9 L (12.0-16.0) g/dL Hct 34.3 L (36.0-48.0) % MCV 92.5 (81.0-99.0) fL MCH 29.4 (26.7-34.0) pg MCHC 31.8 (29.9-35.2) g/dL RDW 16.8 H (11.0-15.0) % Plt Count 456 H (150-450) 10^3/uL MPV 10.0 (9.5-13.5) fL Neut % (Auto) 60.1 (43.0-75.0) % Lymph % (Auto) 28.2 (20.5-60.0) % [place] % (Auto) 7.8 (1.7-12.0) % Eos % (Auto) 2.7 (0.9-7.0) % Baso % (Auto) 0.7 (0.2-2.0) % Neut # (Auto) 5.2 (1.4-6.5) 10^3/uL Lymph # (Auto) 2.4 (1.2-3.8) 10^3/uL [place] # (Auto) 0.7 (0.3-0.8) 10^3/uL Eos # (Auto) 0.2 (0.0-0.7) 10^3/uL Baso # (Auto) 0.1 (0.0-0.1) 10^3/uL Abs Immat Gran (auto) 0.04 H (0.00-0.03) 10^3/uL Imm/Tot Granulo (auto) 0.5 (0.0-0.5) % Sodium 135 L (136-145) mmol/L Potassium 3.7 (3.5-5.1) mmol/L Chloride 97 L (98-107) mmol/L Carbon Dioxide 23.4 (21.0-32.0) mmol/L Anion Gap 18.3 BUN 4.0 L (7.0-18.0) mg/dL Creatinine 0.83 (0.55-1.02) mg/dL Est GFR ( Amer) >60 (>=60) Est GFR (Non-Af Amer) >60 (>=60) BUN/Creatinine Ratio 4.8 Glucose 92 (74-106) mg/dL Calcium 9.3 (8.5-10.1) mg/dL Magnesium 1.9 (1.8-2.4) mg/dL Total Bilirubin 0.3 (0.2-1.0) mg/dL AST 48 H (15-37) U/L ALT 24 (14-59) U/L Alkaline Phosphatase 205 H (46-116) U/L Total Protein 7.7 (6.4-8.2) g/dL Albumin 2.9 L (3.4-5.0) g/dL Globulin 4.8 g/dL Albumin/Globulin Ratio 0.6 ECG Data Attestation: I personally reviewed and interpreted this ECG as follows: (EKG performed at 1532 hrs. reveals sinus tachycardia at 109 bpm. Normal axis. No STEMI. Nonspecific ST changes. No changes compared to 01/06/2024. No ectopy. No other additional acute changes noted.) Discharge Plan Discharge Stand Alone Forms: Work/School Release, Portal Instructions Chief Complaint: Weakness Clinical Impression: Hypovolemia, Light-headedness Patient Disposition: Home, Self-Care Time of Disposition Decision: 19:29 Condition: Good Mode of Transportation: Private Vehicle Prescriptions / Home Meds: No Action pregabalin 200 mg capsule 200 mg PO TID sertraline 100 mg tablet 200 mg PO DAILY amitriptyline 75 mg tablet 75 mg PO .qhs oxycodone 20 mg tablet 20 mg PO Q4H PRN (Reason: pain) sucralfate [Carafate] 1 gram tablet 1 g PO TID alprazolam 0.5 mg tablet 0.5 mg PO QID pantoprazole 40 mg tablet,delayed release (DR/EC) 40 mg PO Q12H Print Language: Zambian Instructions: Dehydration (ED) Referrals: Kymberly Gilmore MD [Primary Care Provider] - 1 week
== END 2024-01-20 19:43 | disposition home or self-care (01) ==
PROVIDERS: Physician Assistant; Emergency Provider Emergency Medicine; PCP Family Medicine
DX: E86.1 Hypovolemia (principal); R42 Dizziness and giddiness; D50.0 Iron deficiency anemia secondary to blood loss (chronic); Z90.710 Acquired absence of both cervix and uterus; Z98.84 Bariatric surgery status; Z87.891 Personal history of nicotine dependence; J44.9 Chronic obstructive pulmonary disease, unspecified
CPT/HCPCS: 36415; 80048; 80053; 83735; 85025; 93005; 96360; 96361; 99285

== ENCOUNTER 2024-02-13 11:32 | Outpatient (OUT) | payer OTHER, MEDICARE, SELFPAY ==
--- NOTE | 2024-02-13 | XR_ITS ---
The [address] [address] Patient Name: RASHID BOOTH MRN: [id number] date: 1970 Sex: F Assigned Patient Location: Current Patient Location: Accession/Order Number: [id number] Exam Date: 02/13/2024 11:45 Report Date: 02/16/2024 13:36 At the request of: TRISTA MORRISON Procedure: XR lumbar spine min 4V EXAMINATION: XR lumbar spine min 4V HISTORY: LUMBAR SPINE PAIN COMPARISON: No relevant comparison available. FINDINGS: BONES: Levocurvature. No acute fracture or spondylolisthesis. Mild spondylosis. Moderate facet osteoarthropathy DISC SPACES: Normal. No significant disc height narrowing, subluxation, or endplate abnormality. PARASPINOUS: Negative. No paraspinous abnormality is seen. OTHER: No transient spondylolisthesis with flexion or extension XR/XR lumbar spine min 4V IMPRESSION: Degenerative changes with no dynamic instability Electronically authenticated by: TUYET JONES Date: 02/16/2024 13:36
--- OUTSIDE RECORDS SUMMARY | 2024-02-13 11:41 | XMS_ITS | CCD ---
Author Organization [facility] Care Team Providers Care Analytics Associate Name Role Phone REJI, PATRICK H. Unavailable Unavailable MAUREEN MITCHELL Unavailable Unavailable REJI, PATRICK H. Unavailable Unavailable REJI, PATRICK H. Unavailable Unavailable REJI, PATRICK H. Unavailable Unavailable MAUREEN MITCHELL Unavailable Unavailable MAUREEN MITCHELL Primary Care Physician [phone] MAUREEN MITCHELL Referring Unavailable MAUREEN MITCHELL Primary Care Unavailable NEW PARKINSON Attending Unavailable NEW PARKINSON Admitting Unavailable NILL, DR ALEXANDRA Attending Unavailable NILL, DR ALEXANDRA Admitting Unavailable STUART, DR TUYET Linn Consulting Unavailable MITCHELL, DR [...] MITCHELL, DR MAUREEN Morales Primary Care Unavailable Maureen Mitchell Unavailable Otoniel Kelly Unavailable Maureen Mitchell MD Primary Care Provider Maureen Mitchell MD Primary Care Provider [phone] Quan Hunter MD Unavailable QUAN HUNTER Attending Unavailable MAUREEN MITCHELL Primary Care Unavailable ABIOSE, QUAN K Attending Unavailable MAUREEN MITCHELL E Primary Care Unavailable DOROTHY SANTORO Attending Unavailable APLINGDOROTHY Referring Unavailable APLDOROTHY WOODS Referring Unavailable DARLENE GONZALEZ Attending Unavailable DARLENE GONZALEZ Referring Unavailable WANDADARLENE AMBROCIO Referring Unavailable ABIOSE, QUAN K Referring Unavailable MITCHELL, MAUREEN E Primary Care Unavailable ABIOSE, QUAN K Referring Unavailable MITCHELL, MAUREEN E Primary Care Unavailable Ibrahima GONZALEZ Attending Unavailable TARUN BARRETT Admitting Unavailable NBA OSCAR Referring Unavailable MITCHELL MAUREEN Primary Care Unavailable TL MATHUR Consulting Unavailable VANDANA MALONEY Attending Unavailable MARGARET GREER Consulting Unavailable MARGARET SULLIVAN Consulting Unavailable OMAR DICKEY Consulting Unavailable ISELA RAMIREZ Consulting Unavailable MASHALLEE Patton, MOHAMMAD Consulting Unavailable ALMA ROSA SAUCEDO Consulting Unavaila SHAIKH Sanz Referring Unavailable MAUREEN MITCHELL Primary Care Unavailable SANDY RODGERS Consulting Unavailable KELI RABAGO Attending Unavailable AVASTHI, NIA Admitting Unavailable MALLY HOPPER Consulting Unavailable MICHAEL ARELLANO Consulting UnavailMARGARET Parekh Consulting Unavailable AVASTHI, NIA Consulting Unavailable Cat BURKETT, Bhupinder Toth Attending Unavailable Allergies Allergy Classification Reported Allergen(s) Allergy Type Date of Onset Reaction(s) Facility Acetaminophen (1 source) Acetaminophen Drug Allergy 09-22-19 [facility] Opioid Agonists (1 source) Codeine Drug Allergy 09-22-[address] [place] [address] Sulfonamides (antibiotic) (1 source) Sulfonamides (Antibiotic) Drug Allergy 09-22-[address] [place] [address] venlafaxine (1 source) venlafaxine Drug Allergy 09-22-[address] [place] [address] (20 sources) Non-steroidal anti-inflammator y agent; Translations: [NSAIDs] Drug allergy Unknown (qualifier value) [facility] [place] (2 sources) Sulfonamides (Antibiotic); Translations: [sulfa drugs] Drug allergy Unknown (qualifier value) [facility] [place] (20 sources) venlafaxine; Translations: [venlafaxine] Drug Allergy 07-16-19 19 Unknown (qualifier value), Unknown [facility] [place] (4 sources) NSAIDs; Translations: [NSAIDS (NON-STEROIDAL ANTI-INFLAMMATOR Y DRUG)] Drug allergy (disorder) 09-06-19 16 [facility] Repository (1 source) Tylenol-Codeine #3 Drug allergy (disorder) 01-23-20 16 [facility] Repository (20 sources) Acetaminophen / Codeine Drug Allergy Unknown [facility] Other (18 sources) Sulfonamides (Antibiotic) Drug allergy Unknown [facility] Other (20 sources) Codeine; Translations: [CODEINE] Drug Allergy 06-09-19 14 Other [facility] (16 sources) Codeine Drug Allergy Unknown [facility] Other (4 sources) patient allergy list reviewed by nurse or physicia Propensity to adverse reactions 06-09-19 14 Comment:Done [facility] Other (4 sources) Allergies Reconciled Propensity to adverse reactions Unknown [facility] Other (16 sources) Sulf-10 Drug allergy Unknown [facility] Other (8 sources) cow milk allergenic extract; Translations: [MILK] Drug Allergy 12-11-19 23 GI U[facility]et [facility] Work Phone: (6 sources) Non-steroidal anti-inflammator y agent Drug Intolerance 09-06-19 16 Other [facility] Work Phone: (2 sources) VENLAFAXINE ANALOGUES; Translations: [VENLAFAXINE ANALOGUES] Propensity to adverse reactions to drug (disorder) 10-06-[address] [facility] 3 Repository (7 sources) Acetaminophen Drug Allergy 08-26-19 24 [facility] (7 sources) Sulfonamides (Antibiotic) Allergy to substance 08-26-19 24 [facility] (8 sources) NSAIDS (Non-Steroidal Anti-Inflamma Allergy to substance 08-26-19 24 [facility] Medications Current Medications Medication Drug Class(es) Dates Sig (Normalized) Sig (Original) ALPRAZolam 0.5 mg oral tablet (20 sources) Benzodiazepine Start: 01-13-2024 End: 01-29-2024 take 0.5 mg by mouth four times daily Alprazolam Active 0.5 MG PO Four times daily 60 January 29, 2024 4:25pm Start: 07-23-2023 End: 01-13-2024 take 1 tablet by mouth every four hours as needed, then take 0.5 tablet by mouth every four hours as needed, then take 5 tablets by mouth once daily as needed Alprazolam Discontinued 0 PO Every 4 hours 75 December 11, 2023 4:43pm January 12, 2024 8:26am alternate 1 tab and 0.5 tab every [...] Refills(s) 0 Start Date: 11/14/21 Status: Ordered atenolol 100 mg oral tablet (4 sources) beta-Adrenergic Mak Start: 07-11-2023 atenolol (Tenormin) tablet 100 mg carvedilol 6.25 mg oral tablet (17 sources) alpha-Adrenergic Mak, beta-Adrenergic Mak Start: 01-20-2024 take 6.25 mg by mouth twice daily Carvedilol Active 6.25 MG PO Twice daily January 20, 2024 12:00am Start: 05-27-2023 End: 05-26-2024 take 1 tablet by mouth twice daily carvedilol (Coreg) 3.125 mg tablet Indications: Essential hypertension Take 1 tablet (3.125 mg) by mouth 2 times a day. 180 tablet 3 05/27/2023 07/01/2023 Discontinued (Therapy completed) Coreg Not-Taking cephalexin 500 mg oral capsule (1 source) Cephalosporin Antibacterial Start: 01-30-2024 take 500 mg by mouth twice daily Cephalexin Active 500 MG PO Twice daily 14 7 January 30, 2024 12:00am ciprofloxacin 3 mg/ml ophthalmic solution (6 sources) [...] Date: 11/14/21 Status: Ordered Relpax Not-Takin g ondansetron 4 mg disintegrating oral tablet (9 sources) Serotonin-3 Receptor Antagonist Start: 10-14-2023 End: 11-10-2023 take 4 mg by mouth every twelve hours Ondansetron Active 4 MG PO Every 12 hours 30 30 November 10, 2023 3:39pm pantoprazole (2 sources) Proton Pump Inhibitor Start: 01-20-2024 Pantoprazole Active MG PO January 20, 2024 12:00am sertraline 100 mg oral tablet (20 sources) Serotonin Reuptake Inhibitor Start: 01-20-2024 take 100 mg by mouth once daily Sertraline Active 100 MG PO Daily January 20, 2024 2:03pm Start: 12-09-2023 End: 01-20-2024 take 2 tablets by mouth once daily Sertraline Discontinued 0 .ROUTE .COMPLEX 180 December 09, 2023 3:49pm January 20, 2024 2:06pm TAKE 2 TABLETS BY MOUTH ONCE DAILY [...] Start Date: 11/14/21 Status: Ordered Zoloft Active sucralfate 1000 mg oral tablet (2 sources) Aluminum Complex Start: 01-20-2024 take 1 g by mouth every eight hours Sucralfate Active 1 GM PO .every 8 hours January 20, 2024 12:00am Vitamin D (20 sources) Vitamin D Active Completed/Discontinued Medications Medication Drug Class(es) Dates Sig (Normalized) Sig (Original) amitriptyline hydrochloride 75 mg oral tablet (20 sources) Tricyclic Antidepressant Start: 10-14-2023 End: 01-21-2024 take 75 mg by mouth once daily [...] once daily at bedtime. 0 01/18/2021 Active cholecalciferol 1.25 mg oral capsule (20 sources) Vitamin D Start: 07-23-2023 End: 09-23-2023 take 1250 ug by mouth two times weekly Cholecalciferol (Vitamin D3) Discontinued 1250 MCG PO Twice a Week July 24, 2023 9:40am September 23, 2023 11:41am Start: 03-10-2023 take 1 capsule by mo [facility] two times weekly cholecalciferol (Vitamin D-3) 50,000 unit capsule Take 1 capsule (50,000 Units) by mouth 2 times a week. 0 03/10/2023 Active take 1 capsule by mo [facility] two times weekly Vitamin D3 1.25 MG (00703 UT) TAKE 1 CAPSULE BY MOUTH TWICE A WEEK for 85 Active clindamycin 150 mg oral capsule (2 sources) Lincosamide Antibacterial Start: 12-18-2023 End: 01-20-2024 take 150 mg by mouth three times daily Clindamycin Hcl Discontinued 150 MG PO Three times daily December 18, 2023 12:00am January 20, 2024 2:06pm iohexol (OMNIPaque) 350 mg iodine/mL solution 80 mL (2 sources) Start: 07-15-2023 End: 07-15-2023 iohexol (OMNIPaque) 350 mg iodine/mL solution 80 mL 24 hr metoprolol succinate 25 mg extended release oral tablet (14 sources) beta-Adrenergic Mak Start: 07-15-2023 End: 07-15-2023 metoprolol tartrate (Lopressor) injection 10 mg Start: 07-15-2023 End: 07-15-2023 metoprolol tartrate (Lopress or) injection 10 mg Start: 07-15-2023 End: 07-15-2023 metoprolol tartrate (Lopress or) injection 10 mg Start: 07-15-2023 End: 07-15-2023 metoprolol tartrate (Lopress or) injection 10 mg Start: 07-01-2023 End: 06-30-2024 Metoprolol Succinate Discont inued 25 MG PO September 12, 2023 12:00am January 20, 2024 2:05pm nitroglycerin 0.4 mg/actuat mucosal spray (2 sources) Nitrate Vasodilator Start: 07-15-2023 End: 07-15-2023 nitroglycerin (NitrolinguaL) 400 mcg/spray spray 2 spray Omeprazole (10 sources) Proton Pump Inhibitor Omeprazole Not-Taking oxyCODONE hydrochloride 20 mg oral tablet (20 sources) Opioid Agonist Start: 09-22-2023 End: 01-29-2024 take 20 mg by mouth every four hours Oxycodone Discontinued 20 MG PO Every 4 hours 90 December 11, 2023 December 29, 2023 8:42am Start: 09-09-2023 End: 09-22-2023 take 20 mg [...] Start: 11-14-2021 take 1 capsule by mo [facility] three times daily Lyrica 200 MG [...] bronchitis, unspecified] Onset: 4 Episodic Administrative/social admission (6 sources) Other reduced mobility; Translations: [Impaired mobility [...] Translations: [Palpitations] Episodic Chronic ulcer of skin (10 sources) Disorder of elbow; Translations: [Non-pressure chronic ulcer of skin of other sites with unspecified severity] 08-27-2023 Chronic Coronary atherosclerosis and other heart disease (7 sources) Preinfarction syndrome; Translations: [Unstable angina] Onset: 4 07-01-2023 Chronic Deficiency and other anemia (2 sources) Anemia due to blood loss; Translations: [Iron deficiency anemia secondary to blood loss (chronic)] 01-20-2024 Chronic Deficiency and other anemia (2 sources) Iron deficiency anemia secondary to blood loss (chronic); Translations: [Iron deficiency anemia secondary to blood loss (chronic)] 01-20-2024 Chronic Deficiency and other anemia (20 sources) Iron deficiency anemia; Translations: [Iron deficiency anemia, unspecified] 11-14-2021 Episodic Deficiency and other anemia (5 sources) Pernicious anemia; Translations: [Vitamin B12 deficiency anemia due to intrinsic factor deficiency] 11-14-2021 Episodic Deficiency and other anemia (4 sources) Anemia; Translations: [Anemia, unspecified] Episodic Deficiency and other anemia (1 source) Iron deficiency anemia, unspecified Episodic Diseases of mouth; excluding dental (4 sources) Parotitis; Translations: [Acute sialoadenitis] 12-18-2023 Episodic Esophageal disorders (9 sources) Gastroesophageal reflux [...] Onset: 8 Episodic Gastroduodenal ulcer (except hemorrhage) (2 sources) Chronic gastrojejunal ulcer; 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] 01-20-2024 Chronic Gastroduodenal ulcer (except hemorrhage) (1 source) H/O: [...] Clostridium difficile, not specified as recurrent] Episodic Malaise and fatigue (2 sources) Asthenia; Translations: [Weakness] 01-20-2024 Episodic Mood disorders (12 sources) Depressive disorder; Translations: [Dysthymia] Onset: 6 11-14-2021 Chronic Nutritional deficiencies (19 sources) Vitamin D deficiency; Translations: [Vitamin D deficiency, unspecified] Onset: 5 11-14-2021 Chronic Open wounds of extremities (1 source) Laceration without foreign body of left elbow, initial encounter Episodic Osteoporosis (5 sources) Osteoporosis; Translations: [Primary osteoporosis] Onset: 5 11-14-2021 Chronic Other aftercare (3 sources) Other long term care phlebotomist (current) drug therapy; Translations: [OTH PRISON CURRENT DRUG THERAPY] Onset: Episodic Other aftercare (7 sources) Patient encounter status; Translations: [Encounter for [...] tissue disorders Episodic Other connective tissue disease (8 sources) Peripheral neuropathic pain; Translations: [Neuralgia and neuritis, unspecified] 07-23-2023 Episodic Other connective tissue disease (10 sources) Neuralgia and neuritis, unspecified; Translations: [Neuralgia, [...] Onset: 5 Chronic Other nervous system disorders (7 sources) Chronic pain syndrome; Translations: [Chronic pain syndrome] 09-10-2023 Chronic Other nervous system disorders (14 sources) Chronic pain syndrome; Translations: [Chronic pain [...] of diabetes mellitus] Episodic Residual codes; unclassified (8 sources) Edema; Translations: [Edema, unspecified] 08-26-2023 Episodic [...] Onset: 01-04-2016 Episodic Other aftercare (1 source) [facility] (current) use of aspirin; Translations: [PRISON CURRENT [...] Range Facility Basophils Auto (Bld) [#/Vol] on 01-20-2024 Basophils (Bld) [#/Vol] 0.1 10 3/uL 0.0-0.1 [facility] Basophils/100 WBC Auto (Bld) on 01-20-2024 Basophils/100 WBC (Bld) 0.7 % 0.2-2.0 [facility] Eosinophils/100 WBC Auto (Bl d)on 01-20-2024 Eosinophils/100 WBC (Bld) 2.7 % 0.9-7.0 [facility] Erythrocyte distribution wid th Auto (RBC) [Ratio]on 01-20-2024 Erythrocyte distribution width (RBC) [Ratio] 16.8 % High 11.0-15.0 [facility] Estimated glomerular filtrat ion rate (GFR) non- Americanon 01-20-2024 GFR/1.73 sq M.predicted among non-blacks MDRD (S/P/Bld) [Vol rate/Area] mL/min/{1.73_m2} >=60 [facility] Globulin Calc (S) [Mass/Vol] on 01-20-2024 Globulin (S) [Mass/Vol] 4.8 g/dL [facility] Hematocrit Auto (Bld) [Volum e fraction]on 01-20-2024 Hematocrit (Bld) [Volume fraction] 34.3 % Low 36.0-48.0 [facility] Hemoglobin [Mass/volume] in Bloodon 01-20-2024 Hemoglobin (Bld) [Mass/Vol] 10.9 g/dL Low 12.0-16.0 [facility] Laboratory - Chemistry and C hemistry - challengeon 01-20-2024 Albumin [Mass/Vol] 2.9 g/dL Low 3.4-5.0 [facility] ALP [Catalytic activity/Vol] 205 U/L High 46-116 [facility] ALT [Catalytic activity/Vol] 24 U/L 14-59 [facility] AST [Catalytic activity/Vol] 48 U/L High 15-37 [facility] Bilirubin [Mass/Vol] 0.3 mg/dL 0.2-1.0 [facility] Calcium [Mass/Vol] 9.3 mg/dL 8.5-10.1 [facility] Chloride [Moles/Vol] 97 mmol/L Low 98-107 [facility] CO2 [Moles/Vol] 23.4 mmol/L 21.0-32.0 [facility] Creatinine [Mass/Vol] 0.83 mg/dL 0.55-1.02 [facility] GFR/1.73 sq M.predicted MDRD (S/P/Bld) [Vol rate/Area] mL/min/{1.73_m2} >=60 [facility] Glucose [Mass/Vol] 92 mg/dL 74-106 [facility] Magnesium [Mass/Vol] 1.9 mg/dL 1.8-2.4 [facility] Potassium [Moles/Vol] 3.7 mmol/L 3.5-5.1 [facility] Protein [Mass/Vol] 7.7 g/dL 6.4-8.2 [facility] Sodium [Moles/Vol] 135 mmol/L Low 136-145 [facility] Urea nitrogen [Mass/Vol] 4.0 mg/dL Low 7.0-18.0 [facility] Urea nitrogen/Creatinine [Mass ratio] 4.8 mg/mg [facility] Laboratory - Hematology and Cell countson 01-20-2024 Immature granulocytes/100 WBC (Bld) 0.5 % 0.0-0.5 [facility] Leukocytes [#/volume] correc patty for nucleated erythrocytes in Blood by Automated counon 01-20-2024 WBC corrected for nucl RBC Auto (Bld) [#/Vol] 8.6 10 3/uL 4.0-11.0 [facility] Lymphocytes Auto (Bld) [#/Vo l]on 01-20-2024 Lymphocytes (Bld) [#/Vol] 2.4 10 3/uL 1.2-3.8 [facility] Lymphocytes/100 WBC Auto (Bl d)on 01-20-2024 Lymphocytes/100 WBC (Bld) 28.2 % 20.5-60.0 [facility] MCH Auto (RBC) [Entitic mass ]on 01-20-2024 MCH (RBC) [Entitic mass] 29.4 pg 26.7-34.0 [facility] MCHC Auto (RBC) [Mass/Vol]on 01-20-2024 MCHC (RBC) [Mass/Vol] 31.8 g/dL 29.9-35.2 [facility] MCV Auto (RBC) [Entitic vol] on 01-20-2024 MCV (RBC) [Entitic vol] 92.5 fL 81.0-99.0 [facility] Monocytes Auto (Bld) [#/Vol] on 01-20-2024 Monocytes (Bld) [#/Vol] 0.7 10 3/uL 0.3-0.8 [facility] Monocytes/100 WBC Auto (Bld) on 01-20-2024 Monocytes/100 WBC (Bld) 7.8 % 1.7-12.0 [facility] Neutrophils Auto (Bld) [#/Vo l]on 01-20-2024 Neutrophils (Bld) [#/Vol] 5.2 10 3/uL 1.4-6.5 [facility] Neutrophils/100 WBC Auto (Bl d)on 01-20-2024 Neutrophils/100 WBC (Bld) 60.1 % 43.0-75.0 [facility] No Panel Informationon 01-19 Eosinophils # (Auto) 0.2 10 3/uL 0.0-0.7 [facility] Immature Granulocyte # (Auto) 0.04 10 3/uL High 0.00-0.03 [facility] Platelet mean volume Auto (B ld) [Entitic vol]on 01-20-2024 Platelet mean volume (Bld) [Entitic vol] 10.0 fL 9.5-13.5 [facility] Platelets Auto (Bld) [#/Vol] on 01-20-2024 Platelets (Bld) [#/Vol] 456 10 3/uL High 150-450 [facility] RBC Auto (Bld) [#/Vol]on RBC (Bld) [#/Vol] 3.71 10 6/uL Low 4.20-5.40 [facility] Serum or plasma albumin/glob ulin mass ratioon 01-20-2024 Albumin/Globulin [Mass ratio] 0.6 {ratio} [facility] Serum or plasma anion gap de terminationon 01-20-2024 Anion gap [Moles/Vol] 18.3 mmol[facility] Basophils Auto (Bld) [#/Vol] on 01-12-2024 Basophils (Bld) [#/Vol] 0.1 10 3/uL 0.0-0.1 [facility] Basophils/100 WBC Auto (Bld) on 01-12-2024 Basophils/100 WBC (Bld) 0.7 % 0.2-2.0 [facility] Eosinophils/100 WBC Auto (Bl d)on 01-12-2024 Eosinophils/100 WBC (Bld) 2.3 % 0.9-7.0 [facility] Erythrocyte distribution wid th Auto (RBC) [Ratio]on 01-12-2024 Erythrocyte distribution width (RBC) [Ratio] 18.2 % High 11.0-15.0 [facility] Estimated glomerular filtrat ion rate (GFR) non- Americanon 01-12-2024 GFR/1.73 sq M.predicted among non-blacks MDRD (S/P/Bld) [Vol rate/Area] mL/min/{1.73_m2} >=60 [facility] Globulin Calc (S) [Mass/Vol] on 01-12-2024 Globulin (S) [Mass/Vol] 3.2 g/dL [facility] Hematocrit Auto (Bld) [Volum e fraction]on 01-12-2024 Hematocrit (Bld) [Volume fraction] 29.7 % Low 36.0-48.0 [facility] Hemoglobin [Mass/volume] in Bloodon 01-12-2024 Hemoglobin (Bld) [Mass/Vol] 9.5 g/dL Low 12.0-16.0 [facility] Laboratory - Chemistry and C hemistry - challengeon 01-12-2024 Albumin [Mass/Vol] 2.3 g/dL Low 3.4-5.0 [facility] ALP [Catalytic activity/Vol] 142 U/L High 46-116 [facility] ALT [Catalytic activity/Vol] 19 U/L 14-59 [facility] AST [Catalytic activity/Vol] 30 U/L 15-37 [facility] Bilirubin [Mass/Vol] 0.4 mg/dL 0.2-1.0 [facility] Calcium [Mass/Vol] 9.0 mg/dL 8.5-10.1 [facility] Chloride [Moles/Vol] 99 mmol/L 98-107 [facility] CO2 [Moles/Vol] 29.5 mmol/L 21.0-32.0 [facility] Creatinine [Mass/Vol] 0.56 mg/dL 0.55-1.02 [facility] GFR/1.73 sq M.predicted MDRD (S/P/Bld) [Vol rate/Area] mL/min/{1.73_m2} >=60 [facility] Glucose [Mass/Vol] 95 mg/dL 74-106 [facility] Potassium [Moles/Vol] 3.5 mmol/L 3.5-5.1 [facility] Protein [Mass/Vol] 5.5 g/dL Low 6.4-8.2 [facility] Sodium [Moles/Vol] 134 mmol/L Low 136-145 [facility] Urea nitrogen [Mass/Vol] 10.0 mg/dL 7.0-18.0 [facility] Urea nitrogen/Creatinine [Mass ratio] 17.9 mg/mg [facility] Laboratory - Hematology and Cell countson 01-12-2024 Immature granulocytes/100 WBC (Bld) 0.5 % 0.0-0.5 [facility] Leukocytes [#/volume] correc patty for nucleated erythrocytes in Blood by Automated counon 01-12-2024 WBC corrected for nucl RBC Auto (Bld) [#/Vol] 8.6 10 3/uL 4.0-11.0 [facility] Lymphocytes Auto (Bld) [#/Vo l]on 01-12-2024 Lymphocytes (Bld) [#/Vol] 1.8 10 3/uL 1.2-3.8 [facility] Lymphocytes/100 WBC Auto (Bl d)on 01-12-2024 Lymphocytes/100 WBC (Bld) 20.7 % 20.5-60.0 [facility] MCH Auto (RBC) [Entitic mass ]on 01-12-2024 MCH (RBC) [Entitic mass] 30.2 pg 26.7-34.0 [facility] MCHC Auto (RBC) [Mass/Vol]on 01-12-2024 MCHC (RBC) [Mass/Vol] 32.0 g/dL 29.9-35.2 [facility] MCV Auto (RBC) [Entitic vol] on 01-12-2024 MCV (RBC) [Entitic vol] 94.3 fL 81.0-99.0 [facility] Monocytes Auto (Bld) [#/Vol] on 01-12-2024 Monocytes (Bld) [#/Vol] 1.0 10 3/uL High 0.3-0.8 [facility] Monocytes/100 WBC Auto (Bld) on 01-12-2024 Monocytes/100 WBC (Bld) 11.3 % 1.7-12.0 [facility] Neutrophils Auto (Bld) [#/Vo l]on 01-12-2024 Neutrophils (Bld) [#/Vol] 5.6 10 3/uL 1.4-6.5 [facility] Neutrophils/100 WBC Auto (Bl d)on 01-12-2024 Neutrophils/100 WBC (Bld) 64.5 % 43.0-75.0 [facility] Nicotineon 01-12-2024 Cotinine <5 Normal [facility] Comment on above: Performed By: #### P TT, PT #### [facility] [address] [place] [id number] Staff Rn: Tato Ibarra MD Nicotine <5 Normal [facility] Comment on above: Result Comment: (NOT E) INTERPRETIVE INFORMATION: Nicotine and Metabolites, Serum or Plasma, Quantitative Methodology: Quantitative Liquid Chromatography-Tandem Mass Spectrometry Positive cutoff: 5 ng/mL For medical purposes only; not valid for forensic use. This test is designed to evaluate recent use of nicotine-containing products. Passive and active exposure cannot be discriminated definitively, although a cutoff of 10 ng/mL cotinine is frequently used for surgery qualification purposes. For smoking cessation programs or compliance testing, the absence of expected drug(s) and/or drug metabolite(s) may indicate non-compliance, inappropriate timing of specimen collection relative to drug administration, poor drug absorption, or limitations of testing. This test cannot distinguish between use of tobacco and purified nicotine products. The concentration value must be greater than or equal to the cutoff to be reported as positive. This test was developed and its performance characteristics determined by [facility]. It has not been cleared or approved by the [place] Food and Drug Administration. This test was performed in a CLIA certified laboratory and is intended for clinical purposes. Performed By: [facility] [address] [place] [id number] [employer] Operator: José Jackson MD, PhD CLIA Number: [id number] Performed By: #### P TT, PT #### [facility] [address] [place] [id number] Staff Rn: Tato Ibarra MD No Panel Informationon 01-11 Eosinophils # (Auto) 0.2 10 3/uL 0.0-0.7 [facility] Immature Granulocyte # (Auto) 0.04 10 3/uL High 0.00-0.03 [facility] Platelet mean volume Auto (B ld) [Entitic vol]on 01-12-2024 Platelet mean volume (Bld) [Entitic vol] 9.9 fL 9.5-13.5 [facility] Platelets Auto (Bld) [#/Vol] on 01-12-2024 Platelets (Bld) [#/Vol] 408 10 3/uL 150-450 [facility] RBC Auto (Bld) [#/Vol]on RBC (Bld) [#/Vol] 3.15 10 6/uL Low 4.20-5.40 [facility] Serum or plasma albumin/glob ulin mass ratioon 01-12-2024 Albumin/Globulin [Mass ratio] 0.7 {ratio} [facility] Serum or plasma anion gap de terminationon 01-12-2024 Anion gap [Moles/Vol] 9.0 mmol/L [facility] [facility] Hgb/Hcton 01-11-2024 Hematocrit (Bld) [Volume fraction] 27.8 % Low 36.3-47.1 [facility] Comment on above: Performed By: #### O SMO, LD, MG, JESUS, TSHX, LIVP, B12FOL, LACTIC, FT4, BMP #### [employer] [address] [place] [address] Staff Rn: Tato Ibarra MD Hemoglobin (Bld) [Mass/Vol] 8.7 g/dL Low 11.9-15.1 [facility] Comment on above: Performed By: #### O SMO, LD, MG, JESUS, TSHX, LIVP, B12FOL, LACTIC, FT4, BMP #### [facility] [address], [place] [id number] Staff Rn: Tato Ibarra MD Basic Metab w/rfx MGon 01-09 Anion gap [Moles/Vol] 9 mmol/L Normal 9-16 [facility] Comment on above: Performed By: #### P TT, PT #### [address] [address] Staff Rn: Tato Ibarra MD Calcium [Mass/Vol] 8.0 mg/dL Low 8.6-10.4 [facility] Comment on above: Performed By: #### P TT, PT #### [address] [address] Staff Rn: Tato Ibarra MD Chloride [Moles/Vol] 101 mmol/L Normal 98-107 [facility] Comment on above: Performed By: #### P TT, PT #### [address] [address] Staff Rn: Tato Ibarra MD CO2 [Moles/Vol] 27 mmol/L Normal 20-31 [facility] Comment on above: Performed By: #### P TT, PT #### [address] [address] Staff Rn: Tato Ibarra MD Creatinine [Mass/Vol] 0.4 mg/dL Low 0.50-0.90 [facility] Comment on above: Performed By: #### P TT, PT #### [address] [address] Staff Rn: Tato Ibarra MD GFR/1.73 sq M.predicted among non-blacks MDRD (S/P/Bld) [Vol rate/Area] mL/min/{1.73_m2} Normal >60 [facility] Comment on above: Result Comment: These results [...] tubular secretion. Performed By: #### P TT, PT #### [address] [address] Staff Rn: Tato Ibarra MD Glucose [Mass/Vol] 87 mg/dL Normal 74-99 [facility] Comment on above: Performed By: #### P TT, PT #### [address] [address] Staff Rn: Tato Ibarra MD Potassium [Moles/Vol] 3.2 mmol/L Low 3.7-5.3 [facility] Comment on above: Result Comment: SPEC IMEN SLIGHTLY HEMOLYZED, RESULTS MAY BE ADVERSELY AFFECTED. Performed By: #### P TT, PT #### [address] [address] Staff Rn: Tato Ibarra MD Sodium [Moles/Vol] 137 mmol/L Normal 136-145 [facility] Comment on above: Performed By: #### P TT, PT #### [address] [address] Staff Rn: Tato Ibarra MD Urea nitrogen [Mass/Vol] 4 mg/dL Low 6-20 [facility] Comment on above: Performed By: #### P TT, PT #### [address] [address] Staff Rn: Tato Ibarra MD CBC with Diffon 01-10-2024 Platelet, Fluoresc. 190 k/uL Normal 138-453 [facility] Comment on above: Performed By: #### P TT, PT #### [address] [address] Staff Rn: Tato Ibarra MD PLT, Immature Fract. 4.6 % Normal 1.1-10.3 [facility] Comment on above: Performed By: #### P TT, PT #### [address] [address] Staff Rn: Tato Ibarra MD Abs. Basophil 0.03 k/uL Normal 0.00-0.20 [facility] Comment on above: Performed By: #### P TT, PT #### [address] [address] Staff Rn: Tato Ibarra MD Abs.Imm.Granulocyte 0.04 k/uL Normal 0.00-0.30 [facility] Comment on above: Performed By: #### P TT, PT #### [place] [address] Staff Rn: Tato Ibarra MD Abs.Neutrophil (Seg) 3.17 k/uL Normal 1.50-8.10 [facility] Comment on above: Performed By: #### P TT, PT #### [place] [address] Staff Rn: Tato Ibarra MD Basophils/100 WBC (Bld) 1 % Normal 0-2 [facility] Comment on above: Performed By: #### P TT, PT #### [place] [address] Staff Rn: Tato Ibarra MD Eosinophils (Bld) [#/Vol] 0.12 10*3/uL Normal 0.00-0.44 [facility] Comment on above: Performed By: #### P TT, PT #### [address] [address] Staff Rn: Tato Ibarra MD Eosinophils/100 WBC (Bld) 2 % Normal 1-4 [facility] Comment on above: Performed By: #### P TT, PT #### [place] [address] Staff Rn: Tato Ibarra MD Erythrocyte distribution width (RBC) [Ratio] 18.7 % High 11.8-14.4 [facility] Comment on above: Performed By: #### P TT, PT #### [address] [address] Staff Rn: Tato Ibarra MD Hematocrit (Bld) [Volume fraction] 27.1 % Low 36.3-47.1 [facility] Comment on above: Performed By: #### P TT, PT #### [address] [address] Staff Rn: Tato Ibarra MD Hemoglobin (Bld) [Mass/Vol] 8.9 g/dL Low 11.9-15.1 [facility] Comment on above: Performed By: #### P TT, PT #### [address] [address] Staff Rn: Tato Ibarra MD Immature granulocytes/100 WBC (Bld) 1 % High 0 [facility] Comment on above: Performed By: #### P TT, PT #### [address] [address] Staff Rn: Tato Ibarra MD Lymphocytes (Bld) [#/Vol] 1.36 10*3/uL Normal 1.10-3.70 [facility] Comment on above: Performed By: #### P TT, PT #### [address] [address] Staff Rn: Tato Ibarra MD Lymphocytes/100 WBC (Bld) 24 % Normal 24-43 [facility] Comment on above: Performed By: #### P TT, PT #### [address] [address] Staff Rn: Tato Ibarra MD MCH (RBC) [Entitic mass] 29.8 pg Normal 25.2-33.5 [facility] Comment on above: Performed By: #### P TT, PT #### [address] [address] Staff Rn: Tato Ibarra MD MCHC (RBC) [Mass/Vol] 32.8 g/dL Normal 28.4-34.8 [facility] Comment on above: Performed By: #### P TT, PT #### [place] [address] Staff Rn: Tato Ibarra MD MCV (RBC) [Entitic vol] 90.6 fL Normal 82.6-102.9 [facility] Comment on above: Performed By: #### P TT, PT #### [place] [address] Staff Rn: Tato Ibarra MD Monocytes (Bld) [#/Vol] 0.85 10*3/uL Normal 0.10-1.20 [facility] Comment on above: Performed By: #### P TT, PT #### [place] [address] Staff Rn: Tato Ibarra MD Monocytes/100 WBC (Bld) 15 % High 3-12 [facility] Comment on above: Performed By: #### P TT, PT #### [place] [address] Staff Rn: Tato Ibarra MD Neutrophil (Seg) 57 % Normal 36-[address] [facility] Comment on above: Performed By: #### P TT, PT #### [place] [address] Staff Rn: Tato Ibarra MD NRBC Automated 0.0 per 100 WBC Normal 0.0 [facility] Comment on above: Performed By: #### P TT, PT #### [address] [address] Staff Rn: Tato Ibarra MD Platelet Count See Reflexed IPF Result Normal 138-453 [facility] Comment on above: Performed By: #### P TT, PT #### [address] [address] Staff Rn: Tato Ibarra MD RBC (Bld) [#/Vol] 2.99 10*6/uL Low 3.95-5.11 [facility] Comment on above: Performed By: #### P TT, PT #### [address] [address] Staff Rn: Tato Ibarra MD RBC morphology finding Nom (Bld) ANISOCYTOSIS PRESENT Normal [facility] Comment on above: Performed By: #### P TT, PT #### [address] [address] Staff Rn: Tato bIarra MD WBC (Bld) [#/Vol] 5.6 10*3/uL Normal 3.5-11.3 [facility] Comment on above: Performed By: #### P TT, PT #### [address] [address] Staff Rn: Tato Ibarra MD Calcium, Ionicon 01-10-2024 Calcium [Moles/Vol] 1.18 mmol/L Normal 1.13-1.33 [facility] Comment on above: Performed By: #### P TT, PT #### [address] [address] Staff Rn: Tato Ibarra MD Hgb/Hcton 01-10-2024 Hematocrit (Bld) [Volume fraction] 25.4 % Low 36.3-47.1 [facility] Comment on above: Performed By: #### P TT, PT #### [address] [phone] Staff Rn: Tato Ibarra MD Hemoglobin (Bld) [Mass/Vol] 8.1 g/dL Low 11.9-15.1 [facility] Comment on above: Performed By: #### P TT, PT #### [address] [id number] Staff Rn: Tato Ibarra MD Magnesiumon 01-10-2024 Magnesium [Mass/Vol] 1.8 mg/dL Normal 1.6-2.6 [facility] Comment on above: Performed By: #### P TT, PT #### [address] [phone] Staff Rn: Tato Ibarra MD Type + Screenon 01-10-2024 Type + Screen Sample Expiration 01/09/2024,2359 Arm Band Number [id number] ABO/Rh(D) O NEGATIVE Antibody Screen NEGATIVE Unit Number [id number] Blood Component Type Leukocyte Reduced Red Cell Unit Division 00 Status of Unit TRANSFUSED Transfusion Status OK TO TRANSFUSE Crossmatch Result COMPATIBLE Unit Number [id number] Blood Component Type Leukocyte Reduced Red Cell Unit Division 00 Status of Unit REL FROM ALLOC Transfusion Status DO NOT ISSUE FOR TRANSFUSION Crossmatch Result NOT TESTED Normal [facility] Comment on above: Performed By: #### O SMO, LD, MG, JESUS, TSHX, LIVP, B12FOL, LACTIC, FT4, BMP #### [address] [id number] Staff Rn: Tato Ibarra MD Basic Metab w/rfx MGon 01-08 Anion gap [Moles/Vol] 8 mmol/L Low 9-16 [facility] Comment on above: Performed By: #### O SMO, LD, MG, JESUS, TSHX, LIVP, B12FOL, LACTIC, FT4, BMP #### [address] [phone] Staff Rn: Tato Ibarra MD Calcium [Mass/Vol] 8.1 mg/dL Low 8.6-10.4 [facility] Comment on above: Performed By: #### O SMO, LD, MG, JESUS, TSHX, LIVP, B12FOL, LACTIC, FT4, BMP #### [address] [phone] Staff Rn: Tato Ibarra MD Chloride [Moles/Vol] 103 mmol/L Normal 98-107 [facility] Comment on above: Performed By: #### O SMO, LD, MG, JESUS, TSHX, LIVP, B12FOL, LACTIC, FT4, BMP #### [address] [id number] Staff Rn: Tato Ibarra MD CO2 [Moles/Vol] 27 mmol/L Normal 20-31 [facility] Comment on above: Performed By: #### O SMO, LD, MG, JESUS, TSHX, LIVP, B12FOL, LACTIC, FT4, BMP #### [address] [id number] Staff Rn: Tato Ibarra MD Creatinine [Mass/Vol] 0.3 mg/dL Low 0.50-0.90 [facility] Comment on above: Performed By: #### O SMO, LD, MG, JESUS, TSHX, LIVP, B12FOL, LACTIC, FT4, BMP #### [address] [id number] Staff Rn: Tato Ibarra MD GFR/1.73 sq M.predicted among non-blacks MDRD (S/P/Bld) [Vol rate/Area] mL/min/{1.73_m2} Normal >60 [facility] Comment on above: Result Comment: These results [...] affects renal tubular secretion. Performed By: #### O SMO, LD, MG, JESUS, TSHX, LIVP, B12FOL, LACTIC, FT4, BMP #### [address] [address] Staff Rn: Tato Ibarra MD Glucose [Mass/Vol] 103 mg/dL High 74-99 [facility] Comment on above: Performed By: #### O SMO, LD, MG, JESUS, TSHX, LIVP, B12FOL, LACTIC, FT4, BMP #### [address] [address] Staff Rn: Tato Ibarra MD Potassium [Moles/Vol] 3.1 mmol/L Low 3.7-5.3 [facility] Comment on above: Performed By: #### O SMO, LD, MG, JESUS, TSHX, LIVP, B12FOL, LACTIC, FT4, BMP #### [address] [address] Staff Rn: Tato Ibarra MD Sodium [Moles/Vol] 138 mmol/L Normal 136-145 [facility] Comment on above: Performed By: #### O SMO, LD, MG, JESUS, TSHX, LIVP, B12FOL, LACTIC, FT4, BMP #### [facility] [employer] [address] [place] [address] Staff Rn: Tato Ibarra MD Urea nitrogen [Mass/Vol] 4 mg/dL Low 6-20 [facility] Comment on above: Performed By: #### O SMO, LD, MG, JESUS, TSHX, LIVP, B12FOL, LACTIC, FT4, BMP #### [address] [address] Staff Rn: Tato Ibarra MD CBC with Diffon 01-09-2024 Abs. Basophil 0.03 k/uL Normal 0.00-0.20 [facility] Comment on above: Performed By: #### O SMO, LD, MG, JESUS, TSHX, LIVP, B12FOL, LACTIC, FT4, BMP #### [address] [address] Staff Rn: Tato Ibarra MD Abs.Imm.Granulocyte <0.03 Normal 0.00-0.30 [facility] Comment on above: Performed By: #### O SMO, LD, MG, JESUS, TSHX, LIVP, B12FOL, LACTIC, FT4, BMP #### [address] [address] Staff Rn: Tato Ibarra MD Abs.Neutrophil (Seg) 4.44 k/uL Normal 1.50-8.10 [facility] Comment on above: Performed By: #### O SMO, LD, MG, JESUS, TSHX, LIVP, B12FOL, LACTIC, FT4, BMP #### [address] [address] Staff Rn: Tato Ibarra MD Basophils/100 WBC (Bld) 1 % Normal 0-2 [facility] Comment on above: Performed By: #### O SMO, LD, MG, JESUS, TSHX, LIVP, B12FOL, LACTIC, FT4, BMP #### [place] [address] Staff Rn: Tato Ibarra MD Eosinophils (Bld) [#/Vol] 0.10 10*3/uL Normal 0.00-0.44 [facility] Comment on above: Performed By: #### O SMO, LD, MG, JESUS, TSHX, LIVP, B12FOL, LACTIC, FT4, BMP #### [address] [address] Staff Rn: Tato Ibarra MD Eosinophils/100 WBC (Bld) 2 % Normal 1-4 [facility] Comment on above: Performed By: #### O SMO, LD, MG, JESUS, TSHX, LIVP, B12FOL, LACTIC, FT4, BMP #### [address] [phone] Staff Rn: Tato Ibarra MD Erythrocyte distribution width (RBC) [Ratio] 19.9 % High 11.8-14.4 [facility] Comment on above: Performed By: #### O SMO, LD, MG, JESUS, TSHX, LIVP, B12FOL, LACTIC, FT4, BMP #### [address] [phone] Staff Rn: Tato Ibarra MD Hematocrit (Bld) [Volume fraction] 24.7 % Low 36.3-47.1 [facility] Comment on above: Performed By: #### O SMO, LD, MG, JESUS, TSHX, LIVP, B12FOL, LACTIC, FT4, BMP #### [place] [phone] Staff Rn: Tato Ibarra MD Hemoglobin (Bld) [Mass/Vol] 7.7 g/dL Low 11.9-15.1 [facility] Comment on above: Performed By: #### O SMO, LD, MG, JESUS, TSHX, LIVP, B12FOL, LACTIC, FT4, BMP #### [address] [id number] Staff Rn: Tato Ibarra MD Immature granulocytes/100 WBC (Bld) 0 % Normal 0 [facility] Comment on above: Performed By: #### O SMO, LD, MG, JESUS, TSHX, LIVP, B12FOL, LACTIC, FT4, BMP #### [address] [phone] Staff Rn: Tato Ibarra MD Lymphocytes (Bld) [#/Vol] 0.91 10*3/uL Low 1.10-3.70 [facility] Comment on above: Performed By: #### O SMO, LD, MG, JESUS, TSHX, LIVP, B12FOL, LACTIC, FT4, BMP #### [address] [phone] Staff Rn: Tato Ibarra MD Lymphocytes/100 WBC (Bld) 15 % Low 24-43 [facility] Comment on above: Performed By: #### O SMO, LD, MG, JESUS, TSHX, LIVP, B12FOL, LACTIC, FT4, BMP #### [place] [address] Staff Rn: Tato Ibarra MD MCH (RBC) [Entitic mass] 29.6 pg Normal 25.2-33.5 [facility] Comment on above: Performed By: #### O SMO, LD, MG, JESUS, TSHX, LIVP, B12FOL, LACTIC, FT4, BMP #### [place] [address] Staff Rn: Tato Ibarra MD MCHC (RBC) [Mass/Vol] 31.2 g/dL Normal 28.4-34.8 [facility] Comment on above: Performed By: #### O SMO, LD, MG, JESUS, TSHX, LIVP, B12FOL, LACTIC, FT4, BMP #### [place] [address] Staff Rn: Tato Ibarra MD MCV (RBC) [Entitic vol] 95.0 fL Normal 82.6-102.9 [facility] Comment on above: Performed By: #### O SMO, LD, MG, JESUS, TSHX, LIVP, B12FOL, LACTIC, FT4, BMP #### [address] [phone] Staff Rn: Tato Ibarra MD Monocytes (Bld) [#/Vol] 0.60 10*3/uL Normal 0.10-1.20 [facility] Comment on above: Performed By: #### O SMO, LD, MG, JESUS, TSHX, LIVP, B12FOL, LACTIC, FT4, BMP #### [address] [address] Staff Rn: Tato Ibarra MD Monocytes/100 WBC (Bld) 10 % Normal 3-12 [facility] Comment on above: Performed By: #### O SMO, LD, MG, JESUS, TSHX, LIVP, B12FOL, LACTIC, FT4, BMP #### [address] [address] Staff Rn: Tato Ibarra MD Neutrophil (Seg) 73 % High 36-[address] [facility] Comment on above: Performed By: #### O SMO, LD, MG, JESUS, TSHX, LIVP, B12FOL, LACTIC, FT4, BMP #### [facility] [employer] [address] [place] [address] Staff Rn: Tato Ibarra MD NRBC Automated 0.0 per 100 WBC Normal 0.0 [facility] Comment on above: Performed By: #### O SMO, LD, MG, JESUS, TSHX, LIVP, B12FOL, LACTIC, FT4, BMP #### [address] [address] Staff Rn: Tato Ibarra MD Platelet mean volume (Bld) [Entitic vol] 10.4 fL Normal 8.1-13.5 [facility] Comment on above: Performed By: #### O SMO, LD, MG, JESUS, TSHX, LIVP, B12FOL, LACTIC, FT4, BMP #### [address] [address] Staff Rn: Tato Ibarra MD Platelets (Bld) [#/Vol] 266 10*3/uL Normal 138-453 [facility] Comment on above: Performed By: #### O SMO, LD, MG, JESUS, TSHX, LIVP, B12FOL, LACTIC, FT4, BMP #### [address] [address] Staff Rn: Tato Ibarra MD RBC (Bld) [#/Vol] 2.60 10*6/uL Low 3.95-5.11 [facility] Comment on above: Performed By: #### O SMO, LD, MG, JESUS, TSHX, LIVP, B12FOL, LACTIC, FT4, BMP #### [address] [address] Staff Rn: Tato Ibarra MD RBC morphology finding Nom (Bld) ANISOCYTOSIS PRESENT Normal [facility] Comment on above: Performed By: #### O SMO, LD, MG, JESUS, TSHX, LIVP, B12FOL, LACTIC, FT4, BMP #### [address] [address] Staff Rn: Tato Ibarra MD WBC (Bld) [#/Vol] 6.1 10*3/uL Normal 3.5-11.3 [facility] Comment on above: Performed By: #### O SMO, LD, MG, JESUS, TSHX, LIVP, B12FOL, LACTIC, FT4, BMP #### [address] [address] Staff Rn: Tato Ibarra MD Calcium, Ionicon 01-09-2024 Calcium [Moles/Vol] 1.18 mmol/L Normal 1.13-1.33 [facility] Comment on above: Performed By: #### O SMO, LD, MG, JESUS, TSHX, LIVP, B12FOL, LACTIC, FT4, BMP #### [facility] [employer] [address] [place] [address] Staff Rn: Tato Ibarra MD Ferritinon 01-09-2024 Ferritin [Mass/Vol] 80 ng/mL Normal 13-150 [facility] Comment on above: Result Comment: FERRITIN Reference Ranges: Adult Males 20 - 60 years: 30 - 400 ng/mL Adult females 17 - 60 years: 13 - 150 ng/mL Adults greater than 60 years: no established reference range Pediatrics: no established reference range Performed By: #### P TT, PT #### [address] [id number] Staff Rn: Tato Ibarra MD Hgb/Hcton 01-09-2024 Hematocrit (Bld) [Volume fraction] 23.7 % Low 36.3-47.1 [facility] Comment on above: Performed By: #### O SMO, LD, MG, JESUS, TSHX, LIVP, B12FOL, LACTIC, FT4, BMP #### [address] [phone] Staff Rn: Tato Ibarra MD Hemoglobin (Bld) [Mass/Vol] 8.0 g/dL Low 11.9-15.1 [facility] Comment on above: Performed By: #### O SMO, LD, MG, JESUS, TSHX, LIVP, B12FOL, LACTIC, FT4, BMP #### [address] [address] Staff Rn: Tato Ibarra MD Iron Binding Cap.on 01-09-20 24 % Fe Saturation 10 % Low 20-55 [facility] Comment on above: Performed By: #### O SMO, LD, MG, JESUS, TSHX, LIVP, B12FOL, LACTIC, FT4, BMP #### [facility] [employer] [address] [place] [address] [id number] Staff Rn: Tato Ibarra MD Iron [Mass/Vol] 15 ug/dL Low 37-145 [facility] Comment on above: Performed By: #### O SMO, LD, MG, JESUS, TSHX, LIVP, B12FOL, LACTIC, FT4, BMP #### [address] [address] Staff Rn: Tato Ibarra MD Total Fe Binding Cap 156 ug/dL Low 250-450 [facility] Comment on above: Performed By: #### O SMO, LD, MG, JESUS, TSHX, LIVP, B12FOL, LACTIC, FT4, BMP #### [facility] [address] [place] [address] Staff Rn: Tato Ibarra MD Unbound Fe Bind Cap 141 ug/dL Normal 112-347 [facility] Comment on above: Performed By: #### O SMO, LD, MG, JESUS, TSHX, LIVP, B12FOL, LACTIC, FT4, BMP #### [facility] [address] [place] [address] Staff Rn: Tato Ibarra MD Magnesiumon 01-09-2024 Magnesium [Mass/Vol] 2.0 mg/dL Normal 1.6-2.6 [facility] Comment on above: Performed By: #### O SMO, LD, MG, JESUS, TSHX, LIVP, B12FOL, LACTIC, FT4, BMP #### [facility] [address] [place] [address] Staff Rn: Tato Ibarra MD Basic Metab w/rfx MGon 01-07 Anion gap [Moles/Vol] 14 mmol/L Normal 9-16 [facility] Comment on above: Performed By: #### P TT, PT #### [facility] [address] [place] [address] Staff Rn: Tato Ibarra MD Calcium [Mass/Vol] 8.3 mg/dL Low 8.6-10.4 [facility] Comment on above: Performed By: #### P TT, PT #### [facility] [address] [place] [address] Staff Rn: Tato Ibarra MD Chloride [Moles/Vol] 97 mmol/L Low 98-107 [facility] Comment on above: Performed By: #### P TT, PT #### [address] [address] Staff Rn: Tato Ibarra MD CO2 [Moles/Vol] 24 mmol/L Normal 20-31 [facility] Comment on above: Performed By: #### P TT, PT #### [address] [address] Staff Rn: Tato Ibarra MD Creatinine [Mass/Vol] 0.3 mg/dL Low 0.50-0.90 [facility] Comment on above: Performed By: #### P TT, PT #### [address] [address] Staff Rn: Tato Ibarra MD GFR/1.73 sq M.predicted among non-blacks MDRD (S/P/Bld) [Vol rate/Area] mL/min/{1.73_m2} Normal >60 [facility] Comment on above: Result Comment: These results [...] tubular secretion. Performed By: #### P TT, PT #### [address] [address] Staff Rn: Tato Ibarra MD Glucose [Mass/Vol] 104 mg/dL High 74-99 [facility] Comment on above: Performed By: #### P TT, PT #### [address] [address] Staff Rn: Tato Ibarra MD Potassium [Moles/Vol] 3.0 mmol/L Low 3.7-5.3 [facility] Comment on above: Performed By: #### P TT, PT #### [address] [address] Staff Rn: Tato Ibarra MD Sodium [Moles/Vol] 135 mmol/L Low 136-145 [facility] Comment on above: Performed By: #### P TT, PT #### [address] [address] Staff Rn: Tato Ibarra MD Urea nitrogen [Mass/Vol] 4 mg/dL Low 6-20 [facility] Comment on above: Performed By: #### P TT, PT #### [address] [address] Staff Rn: Tato Ibarra MD CBC with Diffon 01-08-2024 Abs. Basophil 0.00 k/uL Normal 0.0-0.2 [facility] Comment on above: Performed By: #### P TT, PT #### [address] [address] Staff Rn: Tato Ibarra MD Abs.Imm.Granulocyte 0.00 k/uL Normal 0.00-0.30 [facility] Comment on above: Performed By: #### P TT, PT #### [address] [address] Staff Rn: Tato Ibarra MD Abs.Neutrophil (Seg) 7.78 k/uL High 1.8-7.7 [facility] Comment on above: Performed By: #### P TT, PT #### [address] [address] Staff Rn: Tato Ibarra MD Basophils/100 WBC (Bld) 0 % Normal 0-2 [facility] Comment on above: Performed By: #### P TT, PT #### [address] [address] Staff Rn: Tato Ibarra MD Eosinophils (Bld) [#/Vol] 0.00 10*3/uL Normal 0.0-0.4 [facility] Comment on above: Performed By: #### P TT, PT #### [address] [address] Staff Rn: Tato Ibarra MD Eosinophils/100 WBC (Bld) 0 % Low 1-4 [facility] Comment on above: Performed By: #### P TT, PT #### [address] [address] Staff Rn: Tato Ibarra MD Immature granulocytes/100 WBC (Bld) 0 % Normal 0 [facility] Comment on above: Performed By: #### P TT, PT #### [address] [address] Staff Rn: Tato Ibarra MD Lymphocytes (Bld) [#/Vol] 1.15 10*3/uL Normal 1.0-4.8 [facility] Comment on above: Performed By: #### P TT, PT #### [address] [address] Staff Rn: Tato Ibarra MD Lymphocytes/100 WBC (Bld) 12 % Low 24-44 [facility] Comment on above: Performed By: #### P TT, PT #### [address] [address] Staff Rn: Tato Ibarra MD Monocytes (Bld) [#/Vol] 0.67 10*3/uL Normal 0.1-0.8 [facility] Comment on above: Performed By: #### P TT, PT #### [address] [address] Staff Rn: Tato Ibarra MD Monocytes/100 WBC (Bld) 7 % Normal 1-7 [facility] Comment on above: Performed By: #### P TT, PT #### [address] [address] Staff Rn: Ttao Ibarra MD Morphology Ritesh (Bld) [Interp] ANISOCYTOSIS PRESENT Normal [facility] Comment on above: Performed By: #### P TT, PT #### [address] [address] Staff Rn: Tato Ibarra MD Neutrophil (Seg) 81 % High 36-[address] [facility] Comment on above: Performed By: #### P TT, PT #### [address] [address] Staff Rn: Tato Ibarra MD Erythrocyte distribution width (RBC) [Ratio] 20.6 % High 11.8-14.4 [facility] Comment on above: Performed By: #### P TT, PT #### [address] [address] Staff Rn: Tato Ibarra MD Hematocrit (Bld) [Volume fraction] 27.2 % Low 36.3-47.1 [facility] Comment on above: Performed By: #### P TT, PT #### [address] [address] Staff Rn: Tato Ibarra MD Hemoglobin (Bld) [Mass/Vol] 8.8 g/dL Low 11.9-15.1 [facility] Comment on above: Performed By: #### P TT, PT #### [address] [id number] Staff Rn: Tato Ibarra MD MCH (RBC) [Entitic mass] 30.6 pg Normal 25.2-33.5 [facility] Comment on above: Performed By: #### P TT, PT #### [address] [id number] Staff Rn: Tato Ibarra MD MCHC (RBC) [Mass/Vol] 32.4 g/dL Normal 28.4-34.8 [facility] Comment on above: Performed By: #### P TT, PT #### [address] [id number] Staff Rn: Tato Ibarra MD MCV (RBC) [Entitic vol] 94.4 fL Normal 82.6-102.9 [facility] Comment on above: Performed By: #### P TT, PT #### [address] [id number] Staff Rn: Tato Ibarra MD NRBC Automated 0.0 per 100 WBC Normal 0.0 [facility] Comment on above: Performed By: #### P TT, PT #### [address] [id number] Staff Rn: Tato Ibarra MD Platelet mean volume (Bld) [Entitic vol] 10.5 fL Normal 8.1-13.5 [facility] Comment on above: Performed By: #### P TT, PT #### [address] [address] Staff Rn: Tato Ibarra MD Platelets (Bld) [#/Vol] 268 10*3/uL Normal 138-453 [facility] Comment on above: Performed By: #### P TT, PT #### [address] [address] Staff Rn: Tato Ibarra MD RBC (Bld) [#/Vol] 2.88 10*6/uL Low 3.95-5.11 [facility] Comment on above: Performed By: #### P TT, PT #### [address] [address] Staff Rn: Tato Ibarra MD WBC (Bld) [#/Vol] 9.6 10*3/uL Normal 3.5-11.3 [facility] Comment on above: Performed By: #### P TT, PT #### [facility] [address] [place] [phone] Staff Rn: Tato Ibarra MD Calcium, Ionicon 01-08-2024 Calcium [Moles/Vol] 1.12 mmol/L Low 1.13-1.33 [facility] Comment on above: Performed By: #### P TT, PT #### [facility] [address] [place] [phone] Staff Rn: Tato Ibarra MD Hgb/Hcton 01-08-2024 Hematocrit (Bld) [Volume fraction] 24.7 % Low 36.3-47.1 [facility] Comment on above: Performed By: #### O SMO, LD, MG, JESUS, TSHX, LIVP, B12FOL, LACTIC, FT4, BMP #### [facility] [address] [place] [phone] Staff Rn: Tato Ibarra MD Hemoglobin (Bld) [Mass/Vol] 8.0 g/dL Low 11.9-15.1 [facility] Comment on above: Performed By: #### O SMO, LD, MG, JESUS, TSHX, LIVP, B12FOL, LACTIC, FT4, BMP #### [facility] [address] [place] [phone] Staff Rn: Tato Ibarra MD Hematocrit (Bld) [Volume fraction] 27.3 % Low 36.3-47.1 [facility] Comment on above: Performed By: #### P TT, PT #### [facility] [address] [place] [phone] Staff Rn: Tato Ibarra MD Hemoglobin (Bld) [Mass/Vol] 8.6 g/dL Low 11.9-15.1 [facility] Comment on above: Performed By: #### P TT, PT #### [address] [address] Staff Rn: Tato Ibarra MD Hematocrit (Bld) [Volume fraction] 26.5 % Low 36.3-47.1 [facility] Comment on above: Performed By: #### O SMO, LD, MG, JESUS, TSHX, LIVP, B12FOL, LACTIC, FT4, BMP #### [address] [address] Staff Rn: Tato Ibarra MD Hemoglobin (Bld) [Mass/Vol] 8.1 g/dL Low 11.9-15.1 [facility] Comment on above: Performed By: #### O SMO, LD, MG, JESUS, TSHX, LIVP, B12FOL, LACTIC, FT4, BMP #### [facility] [address] [place] [phone] Staff Rn: Tato Ibarra MD Hematocrit (Bld) [Volume fraction] 26.0 % Low 36.3-47.1 [facility] Comment on above: Performed By: #### O SMO, LD, MG, JESUS, TSHX, LIVP, B12FOL, LACTIC, FT4, BMP #### [facility] [address] [place] [phone] Staff Rn: Tato Ibarra MD Hemoglobin (Bld) [Mass/Vol] 8.0 g/dL Low 11.9-15.1 [facility] Comment on above: Performed By: #### O SMO, LD, MG, JESUS, TSHX, LIVP, B12FOL, LACTIC, FT4, BMP #### [facility] [address] [place] [phone] Staff Rn: Tato Ibarra MD K (Potassium)on 01-08-2024 Potassium [Moles/Vol] 3.3 mmol/L Low 3.7-5.3 [facility] Comment on above: Performed By: #### P TT, PT #### [facility] [address] [place] [phone] Staff Rn: Tato Ibarra MD Magnesiumon 01-08-2024 Magnesium [Mass/Vol] 1.8 mg/dL Normal 1.6-2.6 [facility] Comment on above: Performed By: #### P TT, PT #### [facility] [address] [place] [phone] Staff Rn: Tato Ibarra MD Troponinon 01-08-2024 Troponin, High Sens 83 ng/L Critically high 014 [facility] Comment on above: Result Comment: High Sensitivity Troponin values cannot be compared with other Troponin methodologies. Previous Alert Value Reported Performed By: #### P TT, PT #### [facility] [address] [place] [phone] Staff Rn: Tato Ibarra MD Troponin, High Sens 84 ng/L Critically high 014 [facility] Comment on above: Result Comment: High Sensitivity Troponin values cannot be compared with other Troponin methodologies. Performed By: #### P TT, PT #### [facility] [address] [place] [phone] Staff Rn: Tato Ibarra MD Troponin, High Sens 42 ng/L High 0-14 [facility] Comment on above: Result Comment: High Sensitivity Troponin values cannot be compared with other Troponin methodologies. 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 External leads overlie the patient. No endotracheal tube or nasogastric tube. The cardiomediastinal silhouette is rotated to the left with the patient rotation but is not enlarged. There is a mild increase of the pulmonary vasculature and central interstitial markings compared to the prior exam. The diaphragm is still visualized without a significant pleural effusion. No sign of pneumothorax. IMPRESSION: There is an increased appearance of the pulmonary vasculature and interstitial markings compared with the prior study. Features may relate to congestive changes and developing interstitial edema. Another possibility would be viral infection and bronchiolitis. No significant pleural effusion and no sign of pneumothorax. Interpreted by: Gildardo Caraballo MD Signed by: Gildardo Caraballo MD 01/08/24 Final result Normal [facility] Basic Metab w/rfx MGon 01-06 Anion gap [Moles/Vol] 8 mmol/L Low 9-16 [facility] Comment on above: Performed By: #### O SMO, LD, MG, JESUS, TSHX, LIVP, B12FOL, LACTIC, FT4, BMP #### [facility] [address] [place] [address] [phone] Staff Rn: Tato Ibarra MD Calcium [Mass/Vol] 7.5 mg/dL Low 8.6-10.4 [facility] Comment on above: Performed By: #### O SMO, LD, MG, JESUS, TSHX, LIVP, B12FOL, LACTIC, FT4, BMP #### [facility] [address] [place] [address] [phone] Staff Rn: Tato Ibarra MD Chloride [Moles/Vol] 107 mmol/L Normal 98-107 [facility] Comment on above: Performed By: #### O SMO, LD, MG, JESUS, TSHX, LIVP, B12FOL, LACTIC, FT4, BMP #### [facility] [address] [place] [address] [phone] Staff Rn: Tato Ibarra MD CO2 [Moles/Vol] 24 mmol/L Normal 20-31 [facility] Comment on above: Performed By: #### O SMO, LD, MG, JESUS, TSHX, LIVP, B12FOL, LACTIC, FT4, BMP #### [address] [phone] Staff Rn: Tato Ibarra MD Creatinine [Mass/Vol] 0.4 mg/dL Low 0.50-0.90 [facility] Comment on above: Performed By: #### O SMO, LD, MG, JESUS, TSHX, LIVP, B12FOL, LACTIC, FT4, BMP #### [address] [phone] Staff Rn: Tato Ibarra MD GFR/1.73 sq M.predicted among non-blacks MDRD (S/P/Bld) [Vol rate/Area] mL/min/{1.73_m2} Normal >60 [facility] Comment on above: Result Comment: These results [...] affects renal tubular secretion. Performed By: #### O SMO, LD, MG, JESUS, TSHX, LIVP, B12FOL, LACTIC, FT4, BMP #### [address] [phone] Staff Rn: Tato Ibarra MD Glucose [Mass/Vol] 88 mg/dL Normal 74-99 [facility] Comment on above: Performed By: #### O SMO, LD, MG, JESUS, TSHX, LIVP, B12FOL, LACTIC, FT4, BMP #### [address] [phone] Staff Rn: Tato Ibarra MD Potassium [Moles/Vol] 3.2 mmol/L Low 3.7-5.3 [facility] Comment on above: Result Comment: SPEC IMEN SLIGHTLY HEMOLYZED, RESULTS MAY BE ADVERSELY AFFECTED. Performed By: #### O SMO, LD, MG, JESUS, TSHX, LIVP, B12FOL, LACTIC, FT4, BMP #### [address] [address] Staff Rn: Tato Ibarra MD Sodium [Moles/Vol] 139 mmol/L Normal 136-145 [facility] Comment on above: Performed By: #### O SMO, LD, MG, JESUS, TSHX, LIVP, B12FOL, LACTIC, FT4, BMP #### [address] [address] Staff Rn: Tato Ibarra MD Urea nitrogen [Mass/Vol] 8 mg/dL Normal 6-20 [facility] Comment on above: Performed By: #### O SMO, LD, MG, JESUS, TSHX, LIVP, B12FOL, LACTIC, FT4, BMP #### [facility] [address] [place] [phone] Staff Rn: Tato Ibarra MD CBC with Diffon 01-07-2024 Abs. Basophil 0.06 k/uL Normal 0.00-0.20 [facility] Comment on above: Performed By: #### O SMO, LD, MG, JESUS, TSHX, LIVP, B12FOL, LACTIC, FT4, BMP #### [facility] [address] [place] [phone] Staff Rn: Tato Ibarra MD Abs.Imm.Granulocyte 0.00 k/uL Normal 0.00-0.30 [facility] Comment on above: Performed By: #### O SMO, LD, MG, JESUS, TSHX, LIVP, B12FOL, LACTIC, FT4, BMP #### [facility] [address] [place] [phone] Staff Rn: Tato Ibarra MD Abs.Neutrophil (Seg) 3.94 k/uL Normal 1.50-8.10 [facility] Comment on above: Performed By: #### O SMO, LD, MG, JESUS, TSHX, LIVP, B12FOL, LACTIC, FT4, BMP #### [address] [address] Staff Rn: Tato Ibarra MD Basophils/100 WBC (Bld) 1 % Normal 0-2 [facility] Comment on above: Performed By: #### O SMO, LD, MG, JESUS, TSHX, LIVP, B12FOL, LACTIC, FT4, BMP #### [address] [address] Staff Rn: Tato Ibarra MD Eosinophils (Bld) [#/Vol] 0.12 10*3/uL Normal 0.00-0.44 [facility] Comment on above: Performed By: #### O SMO, LD, MG, JESUS, TSHX, LIVP, B12FOL, LACTIC, FT4, BMP #### [address] [address] Staff Rn: Tato Ibarra MD Eosinophils/100 WBC (Bld) 2 % Normal 1-4 [facility] Comment on above: Performed By: #### O SMO, LD, MG, JESUS, TSHX, LIVP, B12FOL, LACTIC, FT4, BMP #### [address] [address] Staff Rn: Tato Ibarra MD Immature granulocytes/100 WBC (Bld) 0 % Normal 0 [facility] Comment on above: Performed By: #### O SMO, LD, MG, JESUS, TSHX, LIVP, B12FOL, LACTIC, FT4, BMP #### [address] [address] Staff Rn: Tato Ibarra MD Lymphocytes (Bld) [#/Vol] 1.22 10*3/uL Normal 1.10-3.70 [facility] Comment on above: Performed By: #### O SMO, LD, MG, JESUS, TSHX, LIVP, B12FOL, LACTIC, FT4, BMP #### [address] [address] Staff Rn: Tato Ibarra MD Lymphocytes/100 WBC (Bld) 21 % Low 24-43 [facility] Comment on above: Performed By: #### O SMO, LD, MG, JESUS, TSHX, LIVP, B12FOL, LACTIC, FT4, BMP #### [address] [address] Staff Rn: Tato Ibarra MD Monocytes (Bld) [#/Vol] 0.46 10*3/uL Normal 0.10-1.20 [facility] Comment on above: Performed By: #### O SMO, LD, MG, JESUS, TSHX, LIVP, B12FOL, LACTIC, FT4, BMP #### [address] [address] Staff Rn: Tato Ibarra MD Monocytes/100 WBC (Bld) 8 % Normal 3-12 [facility] Comment on above: Performed By: #### O SMO, LD, MG, JESUS, TSHX, LIVP, B12FOL, LACTIC, FT4, BMP #### [address] [address] Staff Rn: Tato Ibarra MD Morphology Ritesh (Bld) [Interp] ANISOCYTOSIS PRESENT Normal [facility] Comment on above: Performed By: #### O SMO, LD, MG, JESUS, TSHX, LIVP, B12FOL, LACTIC, FT4, BMP #### [address] [address] Staff Rn: Tato Ibarra MD Neutrophil (Seg) 68 % High 36-[address] [facility] Comment on above: Performed By: #### O SMO, LD, MG, JESUS, TSHX, LIVP, B12FOL, LACTIC, FT4, BMP #### [address] [phone] Staff Rn: Tato Ibarra MD Erythrocyte distribution width (RBC) [Ratio] 22.0 % High 11.8-14.4 [facility] Comment on above: Performed By: #### O SMO, LD, MG, JESUS, TSHX, LIVP, B12FOL, LACTIC, FT4, BMP #### [address] [phone] Staff Rn: Tato Ibarra MD Hematocrit (Bld) [Volume fraction] 23.2 % Low 36.3-47.1 [facility] Comment on above: Performed By: #### O SMO, LD, MG, JESUS, TSHX, LIVP, B12FOL, LACTIC, FT4, BMP #### [place] [phone] Staff Rn: Tato Ibarra MD Hemoglobin (Bld) [Mass/Vol] 7.2 g/dL Low 11.9-15.1 [facility] Comment on above: Performed By: #### O SMO, LD, MG, JESUS, TSHX, LIVP, B12FOL, LACTIC, FT4, BMP #### [address] [phone] Staff Rn: Tato Ibarra MD MCH (RBC) [Entitic mass] 29.4 pg Normal 25.2-33.5 [facility] Comment on above: Performed By: #### O SMO, LD, MG, JESUS, TSHX, LIVP, B12FOL, LACTIC, FT4, BMP #### [address] [phone] Staff Rn: Tato Ibarra MD MCHC (RBC) [Mass/Vol] 31.0 g/dL Normal 28.4-34.8 [facility] Comment on above: Performed By: #### O SMO, LD, MG, JESUS, TSHX, LIVP, B12FOL, LACTIC, FT4, BMP #### [address] [address] Staff Rn: Tato Ibarra MD MCV (RBC) [Entitic vol] 94.7 fL Normal 82.6-102.9 [facility] Comment on above: Performed By: #### O SMO, LD, MG, JESUS, TSHX, LIVP, B12FOL, LACTIC, FT4, BMP #### [address] [address] Staff Rn: Tato Ibarra MD NRBC Automated 0.0 per 100 WBC Normal 0.0 [facility] Comment on above: Performed By: #### O SMO, LD, MG, JESUS, TSHX, LIVP, B12FOL, LACTIC, FT4, BMP #### [place] [address] Staff Rn: Tato Ibarra MD Platelet mean volume (Bld) [Entitic vol] 11.4 fL Normal 8.1-13.5 [facility] Comment on above: Performed By: #### O SMO, LD, MG, JESUS, TSHX, LIVP, B12FOL, LACTIC, FT4, BMP #### [address] [address] Staff Rn: Tato Ibarra MD Platelets (Bld) [#/Vol] 197 10*3/uL Normal 138-453 [facility] Comment on above: Performed By: #### O SMO, LD, MG, JESUS, TSHX, LIVP, B12FOL, LACTIC, FT4, BMP #### [address] [address] Staff Rn: Tato Ibarra MD RBC (Bld) [#/Vol] 2.45 10*6/uL Low 3.95-5.11 [facility] Comment on above: Performed By: #### O SMO, LD, MG, JESUS, TSHX, LIVP, B12FOL, LACTIC, FT4, BMP #### [facility] [address] [place] [address] [phone] Staff Rn: Tato Ibarra MD WBC (Bld) [#/Vol] 5.8 10*3/uL Normal 3.5-11.3 [facility] Comment on above: Performed By: #### O SMO, LD, MG, JESUS, TSHX, LIVP, B12FOL, LACTIC, FT4, BMP #### [facility] [address] [place] [address] [phone] Staff Rn: Tato Ibarra MD Calcium, Ionicon 01-07-2024 Calcium [Moles/Vol] 1.11 mmol/L Low 1.13-1.33 [facility] Comment on above: Performed By: #### O SMO, LD, MG, JESUS, TSHX, LIVP, B12FOL, LACTIC, FT4, BMP #### [facility] [address] [place] [address] [phone] Staff Rn: Tato Ibarra MD Glucose,Whole Bloodon 2023 Glucose [Mass/Vol] 97 mg/dL Normal 65-105 [facility] Glucose [Mass/Vol] 100 mg/dL Normal 65-105 [facility] Glucose [Mass/Vol] 89 mg/dL Normal 65-105 [facility] Hgb/Hcton 01-07-2024 Hematocrit (Bld) [Volume fraction] 21.9 % Low 36.3-47.1 [facility] Comment on above: Performed By: #### O SMO, LD, MG, JESUS, TSHX, LIVP, B12FOL, LACTIC, FT4, BMP #### [facility] [address] [place] [address] [phone] Staff Rn: Tato Ibarra MD Hemoglobin (Bld) [Mass/Vol] 7.1 g/dL Low 11.9-15.1 [facility] Comment on above: Performed By: #### O SMO, LD, MG, JESUS, TSHX, LIVP, B12FOL, LACTIC, FT4, BMP #### [facility] [address] [place] [address] [phone] Staff Rn: Tato Ibarra MD Hematocrit (Bld) [Volume fraction] 26.5 % Low 36.3-47.1 [facility] Comment on above: Performed By: #### O SMO, LD, MG, JESUS, TSHX, LIVP, B12FOL, LACTIC, FT4, BMP #### [facility] [address] [place] [address] [phone] Staff Rn: Tato Ibarra MD Hemoglobin (Bld) [Mass/Vol] 8.2 g/dL Low 11.9-15.1 [facility] Comment on above: Performed By: #### O SMO, LD, MG, JESUS, TSHX, LIVP, B12FOL, LACTIC, FT4, BMP #### [facility] [address] [place] [address] [phone] Staff Rn: Tato Ibarra MD K (Potassium)on 01-07-2024 Potassium [Moles/Vol] 3.7 mmol/L Normal 3.7-5.3 [facility] Comment on above: Performed By: #### P TT, PT #### [address] [phone] Staff Rn: Tato Ibarra MD MRSA, DNA, Nasalon MRSA, DNA, Nasal Negative Normal NEG [facility] Comment on above: Result Comment: NEGA TIVE: MRSA DNA not detected by nucleic acid amplification. Results should be used as an adjunct to nosocomial control efforts to identify patients needing enhanced precautions. The test is not intended to identify patients with staphylococcal infections. Results should not be used to guide or monitor treatment for MRSA infections. Performed By: #### O SMO, LD, MG, JESUS, TSHX, LIVP, B12FOL, LACTIC, FT4, BMP #### [facility] [address] [place] [address] [phone] Staff Rn: Tato Ibarra MD Magnesiumon 01-07-2024 Magnesium [Mass/Vol] 2.1 mg/dL Normal 1.6-2.6 [facility] Comment on above: Performed By: #### O SMO, LD, MG, JESUS, TSHX, LIVP, B12FOL, LACTIC, FT4, BMP #### [facility] [address] [place] [address] [phone] Staff Rn: Tato Ibarra MD Basic Metab w/rfx MGon 01-05 Anion gap [Moles/Vol] 7 mmol/L Low 9-16 [facility] Comment on above: Performed By: #### O SMO, LD, MG, JESUS, TSHX, LIVP, B12FOL, LACTIC, FT4, BMP #### [facility] [address] [place] [address] [phone] Staff Rn: Tato Ibarra MD Calcium [Mass/Vol] 7.2 mg/dL Low 8.6-10.4 [facility] Comment on above: Performed By: #### O SMO, LD, MG, JESUS, TSHX, LIVP, B12FOL, LACTIC, FT4, BMP #### [facility] [address] [place] [address] [phone] Staff Rn: Tato Ibarra MD Chloride [Moles/Vol] 111 mmol/L High 98-107 [facility] Comment on above: Performed By: #### O SMO, LD, MG, JESUS, TSHX, LIVP, B12FOL, LACTIC, FT4, BMP #### [facility] [address] [place] [address] [phone] Staff Rn: Tato Ibarra MD CO2 [Moles/Vol] 24 mmol/L Normal 20-31 [facility] Comment on above: Performed By: #### O SMO, LD, MG, JESUS, TSHX, LIVP, B12FOL, LACTIC, FT4, BMP #### [address] [phone] Staff Rn: Tato Ibarra MD Creatinine [Mass/Vol] 0.4 mg/dL Low 0.50-0.90 [facility] Comment on above: Performed By: #### O SMO, LD, MG, JESUS, TSHX, LIVP, B12FOL, LACTIC, FT4, BMP #### [address] [phone] Staff Rn: Tato Ibarra MD GFR/1.73 sq M.predicted among non-blacks MDRD (S/P/Bld) [Vol rate/Area] mL/min/{1.73_m2} Normal >60 [facility] Comment on above: Result Comment: These results [...] affects renal tubular secretion. Performed By: #### O SMO, LD, MG, JESUS, TSHX, LIVP, B12FOL, LACTIC, FT4, BMP #### [address] [phone] Staff Rn: Tato Ibarra MD Glucose [Mass/Vol] 103 mg/dL High 74-99 [facility] Comment on above: Performed By: #### O SMO, LD, MG, JESUS, TSHX, LIVP, B12FOL, LACTIC, FT4, BMP #### [address] [phone] Staff Rn: Tato Ibarra MD Potassium [Moles/Vol] 3.7 mmol/L Normal 3.7-5.3 [facility] Comment on above: Performed By: #### O SMO, LD, MG, JESUS, TSHX, LIVP, B12FOL, LACTIC, FT4, BMP #### [address] [phone] Staff Rn: Tato Ibarra MD Sodium [Moles/Vol] 142 mmol/L Normal 136-145 [facility] Comment on above: Performed By: #### O SMO, LD, MG, JESUS, TSHX, LIVP, B12FOL, LACTIC, FT4, BMP #### [address] [address] Staff Rn: Tato Ibarra MD Urea nitrogen [Mass/Vol] 14 mg/dL Normal 6-20 [facility] Comment on above: Performed By: #### O SMO, LD, MG, JESUS, TSHX, LIVP, B12FOL, LACTIC, FT4, BMP #### [address] [address] Staff Rn: Tato Ibarra MD Basophils Auto (Bld) [#/Vol] on 01-06-2024 Basophils (Bld) [#/Vol] 0.0 10 3/uL 0.0-0.1 [facility] Basophils/100 WBC Auto (Bld) on 01-06-2024 Basophils/100 WBC (Bld) 0.5 % 0.2-2.0 [facility] CBC with Diffon 01-06-2024 Abs. Basophil <0.03 Normal 0.00-0.20 [facility] Comment on above: Performed By: #### P TT, PT #### [address] [address] Staff Rn: Tato Ibarra MD Abs.Imm.Granulocyte 0.04 k/uL Normal 0.00-0.30 [facility] Comment on above: Performed By: #### P TT, PT #### [address] [phone] Staff Rn: Tato Ibarra MD Abs.Neutrophil (Seg) 5.60 k/uL Normal 1.50-8.10 [facility] Comment on above: Performed By: #### P TT, PT #### [place] [address] Staff Rn: Tato Ibarra MD Basophils/100 WBC (Bld) 0 % Normal 0-2 [facility] Comment on above: Performed By: #### P TT, PT #### [place] [address] Staff Rn: Tato Ibarra MD Eosinophils (Bld) [#/Vol] 0.03 10*3/uL Normal 0.00-0.44 [facility] Comment on above: Performed By: #### P TT, PT #### [place] [address] Staff Rn: Tato Ibarra MD Eosinophils/100 WBC (Bld) 0 % Low 1-4 [facility] Comment on above: Performed By: #### P TT, PT #### [place] [address] Staff Rn: Tato Ibarra MD Erythrocyte distribution width (RBC) [Ratio] 19.9 % High 11.8-14.4 [facility] Comment on above: Performed By: #### P TT, PT #### [place] [address] Staff Rn: Tato Ibarra MD Hematocrit (Bld) [Volume fraction] 22.4 % Low 36.3-47.1 [facility] Comment on above: Performed By: #### P TT, PT #### [place] [address] Staff Rn: Tato Ibarra MD Hemoglobin (Bld) [Mass/Vol] 6.9 g/dL Critically low 11.9-15.1 [facility] Comment on above: Performed By: #### P TT, PT #### [address] [address] Staff Rn: Tato Ibarra MD Immature granulocytes/100 WBC (Bld) 1 % High 0 [facility] Comment on above: Performed By: #### P TT, PT #### [address] [address] Staff Rn: Tato Ibarra MD Lymphocytes (Bld) [#/Vol] 0.99 10*3/uL Low 1.10-3.70 [facility] Comment on above: Performed By: #### P TT, PT #### [address] [address] Staff Rn: Tato Ibarra MD Lymphocytes/100 WBC (Bld) 14 % Low 24-43 [facility] Comment on above: Performed By: #### P TT, PT #### [address] [address] Staff Rn: Tato Ibarra MD MCH (RBC) [Entitic mass] 30.3 pg Normal 25.2-33.5 [facility] Comment on above: Performed By: #### P TT, PT #### [address] [address] Staff Rn: Tato Ibarra MD MCHC (RBC) [Mass/Vol] 30.8 g/dL Normal 28.4-34.8 [facility] Comment on above: Performed By: #### P TT, PT #### [address] [address] Staff Rn: Tato Ibarra MD MCV (RBC) [Entitic vol] 98.2 fL Normal 82.6-102.9 [facility] Comment on above: Performed By: #### P TT, PT #### [address] [address] Staff Rn: Tato Ibarra MD Monocytes (Bld) [#/Vol] 0.53 10*3/uL Normal 0.10-1.20 [facility] Comment on above: Performed By: #### P TT, PT #### [address] [address] Staff Rn: Tato Ibarra MD Monocytes/100 WBC (Bld) 7 % Normal 3-12 [facility] Comment on above: Performed By: #### P TT, PT #### [address] [address] Staff Rn: Tato Ibarra MD Neutrophil (Seg) 78 % High 36-[address] [facility] Comment on above: Performed By: #### P TT, PT #### [address] [address] Staff Rn: Tato Ibarra MD NRBC Automated 0.0 per 100 WBC Normal 0.0 [facility] Comment on above: Performed By: #### P TT, PT #### [address] [address] Staff Rn: Tato Ibarra MD Platelet mean volume (Bld) [Entitic vol] 10.6 fL Normal 8.1-13.5 [facility] Comment on above: Performed By: #### P TT, PT #### [address] [address] Staff Rn: Tato Ibarra MD Platelets (Bld) [#/Vol] 195 10*3/uL Normal 138-453 [facility] Comment on above: Performed By: #### P TT, PT #### [address] [address] Staff Rn: Tato Ibarra MD RBC (Bld) [#/Vol] 2.28 10*6/uL Low 3.95-5.11 [facility] Comment on above: Performed By: #### P TT, PT #### [facility] [address] [place] [address] Staff Rn: Tato Ibarra MD RBC morphology finding Nom (Bld) ANISOCYTOSIS PRESENT Normal [facility] Comment on above: Performed By: #### P TT, PT #### [facility] [address] [place] [address] Staff Rn: Tato Iabrra MD WBC (Bld) [#/Vol] 7.2 10*3/uL Normal 3.5-11.3 [facility] Comment on above: Performed By: #### P TT, PT #### [address] [address] Staff Rn: Tato Ibarra MD CT CHEST WO CONTRASTon 01-05 CT CHEST WO CONTRAST EXAMINATION: CT OF THE CHEST WITHOUT CONTRAST 01/06/2024 11:43 am TECHNIQUE: CT of the chest was performed without the administration of intravenous contrast. Multiplanar reformatted images are provided for review. Automated exposure control, iterative reconstruction, and/or weight based adjustment of the mA/kV was utilized to reduce the radiation dose to as low as reasonably achievable. COMPARISON: None. HISTORY: ORDERING SYSTEM PROVIDED HISTORY: fall, L side rib pain TECHNOLOGIST PROVIDED HISTORY: fall, L side rib pain Is the patient ?->No Reason for Exam: fall, L side rib pain FINDINGS: Mediastinum: The cardiac size is normal. Coronary artery calcifications.. There is no significant mediastinal, hilar or axillary lymphadenopathy. The thyroid gland shows no significant abnormalities. The esophagus shows no significant abnormalities. Lungs/pleura: Minimal subsegmental atelectasis bilateral posterior sulci. No pleural effusion or pneumothorax. No significant lung nodules or masses. Upper Abdomen: Gastric bypass surgery. No acute process. Soft Tissues/Bones: There are multiple bilateral subacute or old rib fractures. Superimposed on this there is acute left 3rd, 4th, 5th, 6th rib nondisplaced fractures manifested by inner cortical buckling. IMPRESSION: Acute left 3rd, 4th, 5th, 6th rib nondisplaced fractures on background bilateral subacute or old rib fractures. Interpreted by: Cory Bella MD Signed by: Cory Bella MD 01/06/24 Final result Normal [facility] CTA ABDOMEN PELVIS W WO CONT Va 01-06-2024 CTA ABDOMEN PELVIS W WO CONTRAST EXAMINATION: CTA OF THE ABDOMEN AND PELVIS WITH AND WITHOUT CONTRAST 01/06/2024 11:47 am: TECHNIQUE: CTA of the abdomen and pelvis was performed without and with the administration of intravenous contrast. Multiplanar reformatted images are provided for review. MIP images are provided for review. Automated exposure control, iterative reconstruction, and/or weight based adjustment of the mA/kV was utilized to reduce the radiation dose to as low as reasonably achievable. COMPARISON: 01/01/2024 HISTORY: ORDERING SYSTEM PROVIDED HISTORY: UGIB TECHNOLOGIST PROVIDED HISTORY: UGIB Additional Contrast?->1 Reason for Exam: UGIB FINDINGS: CTA ABDOMEN: There is a small infarct in the tip of the spleen. The remainder of the visualized upper abdominal organs are stable including small gallstone in gallbladder. The gallbladder is distended but there is no evidence for wall thickening.. No active gastrointestinal hemorrhage is identified. No pseudoaneurysm is seen. The abdominal aorta and its branches are patent. CTA PELVIS: The bladder is unremarkable and there is no evidence for free air or free fluid. No active gastrointestinal hemorrhage is identified. The bilateral iliac arteries are patent. IMPRESSION: Negative for active gastrointestinal hemorrhage. Postsurgical changes in the region the stomach Distended gallbladder with stone but no evidence for wall thickening. If there is clinical concern for acute cholecystitis, a right upper quadrant gallbladder ultrasound may be helpful for further evaluation. Interpreted by: Dain Rodrigeuz MD Signed by: Dain Rodriguez MD 01/06/24 Final result Normal [facility] Calcium, Ionicon 01-06-2024 Calcium [Moles/Vol] 1.07 mmol/L Low 1.13-1.33 [facility] Comment on above: Performed By: #### O SMO, LD, MG, JESUS, TSHX, LIVP, B12FOL, LACTIC, FT4, BMP #### [facility] [address] [place] [address] Staff Rn: Tato Ibarra MD Eosinophils/100 WBC Auto (Bl d)on 01-06-2024 Eosinophils/100 WBC (Bld) 1.2 % 0.9-7.0 [facility] Erythrocyte distribution wid th Auto (RBC) [Ratio]on 01-06-2024 Erythrocyte distribution width (RBC) [Ratio] 19.2 % High 11.0-15.0 [facility] Estimated glomerular filtrat ion rate (GFR) non- Americanon 01-06-2024 GFR/1.73 sq M.predicted among non-blacks MDRD (S/P/Bld) [Vol rate/Area] mL/min/{1.73_m2} >=60 [facility] Globulin Calc (S) [Mass/Vol] on 01-06-2024 Globulin (S) [Mass/Vol] 2.1 g/dL [facility] Hematocrit Auto (Bld) [Volum e fraction]on 01-06-2024 Hematocrit (Bld) [Volume fraction] 19.1 % Low 36.0-48.0 [facility] Comment on above: RESULTS CALLED TO DUDLEY TAI RN Hemoglobin [Mass/volume] in Bloodon 01-06-2024 Hemoglobin (Bld) [Mass/Vol] 6.0 g/dL Low 12.0-16.0 [facility] Comment on above: RESULTS CALLED TO DUDLEY TAI RN Hemoglobin.gastrointestinal [Presence] in Stoolon 01-06-2024 Hemoglobin.gastrointes tinal Ql (Stl) Positive Abnormal [facility] Hgb/Hcton 01-06-2024 Hematocrit (Bld) [Volume fraction] 23.4 % Low 36.3-47.1 [facility] Comment on above: Performed By: #### O SMO, LD, MG, JESUS, TSHX, LIVP, B12FOL, LACTIC, FT4, BMP #### [facility] [place] [address] Staff Rn: Tato Ibarra MD Hemoglobin (Bld) [Mass/Vol] 7.5 g/dL Low 11.9-15.1 [facility] Comment on above: Performed By: #### O SMO, LD, MG, JESUS, TSHX, LIVP, B12FOL, LACTIC, FT4, BMP #### [facility] [address] [place] [address] [phone] Staff Rn: Tato Ibarra MD Hematocrit (Bld) [Volume fraction] 23.9 % Low 36.3-47.1 [facility] Comment on above: Performed By: #### O SMO, LD, MG, JESUS, TSHX, LIVP, B12FOL, LACTIC, FT4, BMP #### [facility] [address] [place] [address] [phone] Staff Rn: Tato Ibarra MD Hemoglobin (Bld) [Mass/Vol] 7.8 g/dL Low 11.9-15.1 [facility] Comment on above: Performed By: #### O SMO, LD, MG, JESUS, TSHX, LIVP, B12FOL, LACTIC, FT4, BMP #### [facility] [address] [place] [address] [phone] Staff Rn: Tato Ibarra MD Laboratory - Chemistry and C hemistry - challengeon 01-06-2024 Albumin [Mass/Vol] 1.6 g/dL Low 3.4-5.0 [facility] ALP [Catalytic activity/Vol] 92 U/L 46-116 [facility] ALT [Catalytic activity/Vol] 19 U/L 14-59 [facility] AST [Catalytic activity/Vol] 34 U/L 15-37 [facility] Bilirubin [Mass/Vol] 0.3 mg/dL 0.2-1.0 [facility] Bilirubin.direct [Mass/Vol] 0.1 mg/dL 0.0-0.2 [facility] Calcium [Mass/Vol] 7.8 mg/dL Low 8.5-10.1 [facility] Chloride [Moles/Vol] 109 mmol/L High 98-107 [facility] CO2 [Moles/Vol] 28.5 mmol/L 21.0-32.0 [facility] Creatinine [Mass/Vol] 0.63 mg/dL 0.55-1.02 [facility] GFR/1.73 sq M.predicted MDRD (S/P/Bld) [Vol rate/Area] mL/min/{1.73_m2} >=60 [facility] Glucose [Mass/Vol] 106 mg/dL 74-106 [facility] Potassium [Moles/Vol] 3.9 mmol/L 3.5-5.1 [facility] Protein [Mass/Vol] 3.7 g/dL Low 6.4-8.2 [facility] Sodium [Moles/Vol] 142 mmol/L 136-145 [facility] Urea nitrogen [Mass/Vol] 12.0 mg/dL 7.0-18.0 [facility] Urea nitrogen/Creatinine [Mass ratio] 19.0 mg/mg [facility] Laboratory - Hematology and Cell countson 01-06-2024 Immature granulocytes/100 WBC (Bld) 0.5 % 0.0-0.5 [facility] Lactic Acidon 01-06-2024 Lactic Acid,Whole Bl 1.4 mmol/L Normal 0.7-2.1 [facility] Comment on above: Performed By: #### O SMO, LD, MG, JESUS, TSHX, LIVP, B12FOL, LACTIC, FT4, BMP #### [facility] [address] [place] [phone] Staff Rn: Tato Ibarra MD Leukocytes [#/volume] correc patty for nucleated erythrocytes in Blood by Automated counon 01-06-2024 WBC corrected for nucl RBC Auto (Bld) [#/Vol] 7.8 10 3/uL 4.0-11.0 [facility] Liver Profileon 01-06-2024 Albumin [Mass/Vol] 2.4 g/dL Low 3.5-5.2 [facility] Comment on above: Performed By: #### O SMO, LD, MG, JESUS, TSHX, LIVP, B12FOL, LACTIC, FT4, BMP #### [facility] [address] [place], [place] [phone] Staff Rn: Tato Ibarra MD Albumin/Glob Ratio 2.0 Normal 1.0-2.5 [facility] Comment on above: Performed By: #### O SMO, LD, MG, JESUS, TSHX, LIVP, B12FOL, LACTIC, FT4, BMP #### [address] [address] Staff Rn: Tato Ibarra MD Alkaline Phos 87 U/L Normal 35-104 [facility] Comment on above: Performed By: #### O SMO, LD, MG, JESUS, TSHX, LIVP, B12FOL, LACTIC, FT4, BMP #### [address] [address] Staff Rn: Tato Ibarra MD ALT [Catalytic activity/Vol] 12 U/L Normal 10-35 [facility] Comment on above: Performed By: #### O SMO, LD, MG, JESUS, TSHX, LIVP, B12FOL, LACTIC, FT4, BMP #### [address] [address] Staff Rn: Tato Ibarra MD AST [Catalytic activity/Vol] 30 U/L Normal 10-35 [facility] Comment on above: Performed By: #### O SMO, LD, MG, JESUS, TSHX, LIVP, B12FOL, LACTIC, FT4, BMP #### [address] [address] Staff Rn: Tato Ibarra MD Bilirubin [Mass/Vol] 0.4 mg/dL Normal 0.00-1.20 [facility] Comment on above: Performed By: #### O SMO, LD, MG, JESUS, TSHX, LIVP, B12FOL, LACTIC, FT4, BMP #### [address] [address] Staff Rn: Tato Ibarra MD Bilirubin, Indirect 0.2 mg/dL Normal 0.0-1.0 [facility] Comment on above: Performed By: #### O SMO, LD, MG, JESUS, TSHX, LIVP, B12FOL, LACTIC, FT4, BMP #### [address] [phone] Staff Rn: Tato Ibarra MD Bilirubin.indirect [Mass/Vol] 0.2 mg/dL Normal 0.0-0.2 [facility] Comment on above: Performed By: #### O SMO, LD, MG, JESUS, TSHX, LIVP, B12FOL, LACTIC, FT4, BMP #### [address] [phone] Staff Rn: Tato Ibarra MD Globulin (S) [Mass/Vol] 1.4 g/dL Normal [facility] Comment on above: Performed By: #### O SMO, LD, MG, JESUS, TSHX, LIVP, B12FOL, LACTIC, FT4, BMP #### [address] [phone] Staff Rn: Tato Ibarra MD Protein [Mass/Vol] 3.8 g/dL Low 6.6-8.7 [facility] Comment on above: Performed By: #### O SMO, LD, MG, JESUS, TSHX, LIVP, B12FOL, LACTIC, FT4, BMP #### [address] [phone] Staff Rn: Tato Iabrra MD Lymphocytes Auto (Bld) [#/Vo l]on 01-06-2024 Lymphocytes (Bld) [#/Vol] 1.1 10 3/uL Low 1.2-3.8 [facility] Lymphocytes/100 WBC Auto (Bl d)on 01-06-2024 Lymphocytes/100 WBC (Bld) 13.6 % Low 20.5-60.0 [facility] MCH Auto (RBC) [Entitic mass ]on 01-06-2024 MCH (RBC) [Entitic mass] 30.9 pg 26.7-34.0 [facility] MCHC Auto (RBC) [Mass/Vol]on 01-06-2024 MCHC (RBC) [Mass/Vol] 31.4 g/dL 29.9-35.2 [facility] MCV Auto (RBC) [Entitic vol] on 01-06-2024 MCV (RBC) [Entitic vol] 98.5 fL 81.0-99.0 [facility] MRSA, DNA, Nasalon Specimen Description .NASAL SWAB Normal [facility] Comment on above: Performed By: #### O SMO, LD, MG, JESUS, TSHX, LIVP, B12FOL, LACTIC, FT4, BMP #### [facility] [address] [place] [phone] Staff Rn: Tato Ibarra MD Magnesiumon 01-06-2024 Magnesium [Mass/Vol] 1.9 mg/dL Normal 1.6-2.6 [facility] Comment on above: Performed By: #### O SMO, LD, MG, JESUS, TSHX, LIVP, B12FOL, LACTIC, FT4, BMP #### [facility] [place] [address] Staff Rn: Tato Ibarra MD Monocytes Auto (Bld) [#/Vol] on 01-06-2024 Monocytes (Bld) [#/Vol] 0.4 10 3/uL 0.3-0.8 [facility] Monocytes/100 WBC Auto (Bld) on 01-06-2024 Monocytes/100 WBC (Bld) 5.6 % 1.7-12.0 [facility] Neutrophils Auto (Bld) [#/Vo l]on 01-06-2024 Neutrophils (Bld) [#/Vol] 6.1 10 3/uL 1.4-6.5 [facility] Neutrophils/100 WBC Auto (Bl d)on 01-06-2024 Neutrophils/100 WBC (Bld) 78.6 % High 43.0-75.0 [facility] No Panel Informationon 01-05 Eosinophils # (Auto) 0.1 10 3/uL 0.0-0.7 [facility] Immature Granulocyte # (Auto) 0.04 10 3/uL High 0.00-0.03 [facility] PTon 01-06-2024 INR Coag (PPP) [Relative time] 1.1 {INR} Normal [facility] Comment on above: Result Comment: Therapeutic Range: Moderate Anticoagulant Intensity: INR = 2.0-3.0 High Anticoagulant Intensity: INR = 2.5-3.5 Performed By: #### O SMO, LD, MG, JESUS, TSHX, LIVP, B12FOL, LACTIC, FT4, BMP #### [facility] [address] [place] [phone] Staff Rn: Tato Ibarra MD PT Coag (PPP) [Time] 13.6 s Normal 11.7-14.9 [facility] Comment on above: Performed By: #### O SMO, LD, MG, JESUS, TSHX, LIVP, B12FOL, LACTIC, FT4, BMP #### [facility] [address] [place] [phone] Staff Rn: Tato Ibarra MD Platelet mean volume Auto (B ld) [Entitic vol]on 01-06-2024 Platelet mean volume (Bld) [Entitic vol] 10.6 fL 9.5-13.5 [facility] Platelets Auto (Bld) [#/Vol] on 01-06-2024 Platelets (Bld) [#/Vol] 261 10 3/uL 150-450 [facility] RBC Auto (Bld) [#/Vol]on RBC (Bld) [#/Vol] 1.94 10 6/uL Low 4.20-5.40 [facility] Serum or plasma albumin/glob ulin mass ratioon 01-06-2024 Albumin/Globulin [Mass ratio] 0.8 {ratio} [facility] Serum or plasma anion gap de terminationon 01-06-2024 Anion gap [Moles/Vol] 8.4 mmol/L [facility] Troponinon 01-06-2024 Troponin, High Sens 9 ng/L Normal 0-14 [facility] Comment on above: Result Comment: High Sensitivity Troponin values cannot be compared with other Troponin methodologies. Performed By: #### P TT, PT #### [address] [id number] Staff Rn: Tato Ibarra MD Troponin, High Sens 9 ng/L Normal 0-14 [facility] Comment on above: Result Comment: High Sensitivity Troponin values cannot be compared with other Troponin methodologies. Performed By: #### O SMO, LD, MG, JESUS, TSHX, LIVP, B12FOL, LACTIC, FT4, BMP #### [address] [address] Staff Rn: Tato Ibarra MD Troponin, High Sens 8 ng/L Normal 0-14 [facility] Comment on above: Result Comment: High Sensitivity Troponin values cannot be compared with other Troponin methodologies. Performed By: #### O SMO, LD, MG, JESUS, TSHX, LIVP, B12FOL, LACTIC, FT4, BMP #### [address] [id number] Staff Rn: Tato Ibarra MD Basic Metabolic Profon 01-04 Anion gap [Moles/Vol] 9 mmol/L Normal 9-16 [facility] Comment on above: Performed By: #### O SMO, LD, MG, JESUS, TSHX, LIVP, B12FOL, LACTIC, FT4, BMP #### [facility] [address] [place] [phone] Staff Rn: Tato Ibarra MD Calcium [Mass/Vol] 8.0 mg/dL Low 8.6-10.4 [facility] Comment on above: Performed By: #### O SMO, LD, MG, JESUS, TSHX, LIVP, B12FOL, LACTIC, FT4, BMP #### [facility] [address] [place] [phone] Staff Rn: Tato Ibarra MD Chloride [Moles/Vol] 103 mmol/L Normal 98-107 [facility] Comment on above: Performed By: #### O SMO, LD, MG, JESUS, TSHX, LIVP, B12FOL, LACTIC, FT4, BMP #### [facility] [address] [place] [address] [phone] Staff Rn: Tato Ibarra MD CO2 [Moles/Vol] 27 mmol/L Normal 20-31 [facility] Comment on above: Performed By: #### O SMO, LD, MG, JESUS, TSHX, LIVP, B12FOL, LACTIC, FT4, BMP #### [address] [phone] Staff Rn: Tato Ibarra MD Creatinine [Mass/Vol] 0.3 mg/dL Low 0.50-0.90 [facility] Comment on above: Performed By: #### O SMO, LD, MG, JESUS, TSHX, LIVP, B12FOL, LACTIC, FT4, BMP #### [address] [phone] Staff Rn: Tato Ibarra MD GFR/1.73 sq M.predicted among non-blacks MDRD (S/P/Bld) [Vol rate/Area] mL/min/{1.73_m2} Normal >60 [facility] Comment on above: Result Comment: These results [...] affects renal tubular secretion. Performed By: #### O SMO, LD, MG, JESUS, TSHX, LIVP, B12FOL, LACTIC, FT4, BMP #### [address] [id number] Staff Rn: Ttao Ibarra MD Glucose [Mass/Vol] 85 mg/dL Normal 74-99 [facility] Comment on above: Performed By: #### O SMO, LD, MG, JESUS, TSHX, LIVP, B12FOL, LACTIC, FT4, BMP #### [facility] [address] [place] [phone] Staff Rn: Tato Ibarra MD Potassium [Moles/Vol] 2.8 mmol/L Critically low 3.7-5.3 [facility] Comment on above: Performed By: #### O SMO, LD, MG, JESUS, TSHX, LIVP, B12FOL, LACTIC, FT4, BMP #### [facility] [address] [place] [phone] Staff Rn: Tato Ibarra MD Sodium [Moles/Vol] 139 mmol/L Normal 136-145 [facility] Comment on above: Performed By: #### O SMO, LD, MG, JESUS, TSHX, LIVP, B12FOL, LACTIC, FT4, BMP #### [facility] [address] [place] [phone] Staff Rn: Tato Ibarra MD Urea nitrogen [Mass/Vol] 3 mg/dL Low 6-20 [facility] Comment on above: Performed By: #### O SMO, LD, MG, JESUS, TSHX, LIVP, B12FOL, LACTIC, FT4, BMP #### [facility] [address] [place] [address] Staff Rn: Tato Ibarra MD CBC with Diffon 01-05-2024 Abs. Basophil <0.03 Normal 0.00-0.20 [facility] Comment on above: Performed By: #### O SMO, LD, MG, JESUS, TSHX, LIVP, B12FOL, LACTIC, FT4, BMP #### [facility] [address] [place] [address] [phone] Staff Rn: Tato Ibarra MD Abs.Imm.Granulocyte <0.03 Normal 0.00-0.30 [facility] Comment on above: Performed By: #### O SMO, LD, MG, JESUS, TSHX, LIVP, B12FOL, LACTIC, FT4, BMP #### [address] [id number] Staff Rn: Tato Ibarra MD Abs.Neutrophil (Seg) 3.15 k/uL Normal 1.50-8.10 [facility] Comment on above: Performed By: #### O SMO, LD, MG, JESUS, TSHX, LIVP, B12FOL, LACTIC, FT4, BMP #### [place] [address] Staff Rn: Tato Ibarra MD Basophils/100 WBC (Bld) 0 % Normal 0-2 [facility] Comment on above: Performed By: #### O SMO, LD, MG, JESUS, TSHX, LIVP, B12FOL, LACTIC, FT4, BMP #### [place] [address] Staff Rn: Tato Ibarra MD Eosinophils (Bld) [#/Vol] 0.08 10*3/uL Normal 0.00-0.44 [facility] Comment on above: Performed By: #### O SMO, LD, MG, JESUS, TSHX, LIVP, B12FOL, LACTIC, FT4, BMP #### [facility] [address] [place] [address] Staff Rn: Tato Ibarra MD Eosinophils/100 WBC (Bld) 2 % Normal 1-4 [facility] Comment on above: Performed By: #### O SMO, LD, MG, JESUS, TSHX, LIVP, B12FOL, LACTIC, FT4, BMP #### [address] [address] Staff Rn: Tato Ibarra MD Erythrocyte distribution width (RBC) [Ratio] 19.8 % High 11.8-14.4 [facility] Comment on above: Performed By: #### O SMO, LD, MG, JESUS, TSHX, LIVP, B12FOL, LACTIC, FT4, BMP #### [facility] [address] [place] [phone] Staff Rn: Tato Ibarra MD Hematocrit (Bld) [Volume fraction] 27.3 % Low 36.3-47.1 [facility] Comment on above: Performed By: #### O SMO, LD, MG, JESUS, TSHX, LIVP, B12FOL, LACTIC, FT4, BMP #### [facility] [address] [place] [phone] Staff Rn: Tato Ibarra MD Hemoglobin (Bld) [Mass/Vol] 8.5 g/dL Low 11.9-15.1 [facility] Comment on above: Performed By: #### O SMO, LD, MG, JESUS, TSHX, LIVP, B12FOL, LACTIC, FT4, BMP #### [facility] [address] [place] [phone] Staff Rn: Tato Ibarra MD Immature granulocytes/100 WBC (Bld) 0 % Normal 0 [facility] Comment on above: Performed By: #### O SMO, LD, MG, JESUS, TSHX, LIVP, B12FOL, LACTIC, FT4, BMP #### [facility] [address] [place] [phone] Staff Rn: Tato Ibarra MD Lymphocytes (Bld) [#/Vol] 1.45 10*3/uL Normal 1.10-3.70 [facility] Comment on above: Performed By: #### O SMO, LD, MG, JESUS, TSHX, LIVP, B12FOL, LACTIC, FT4, BMP #### [facility] [address] [place] [phone] Staff Rn: Tato Ibarra MD Lymphocytes/100 WBC (Bld) 28 % Normal 24-43 [facility] Comment on above: Performed By: #### O SMO, LD, MG, JESUS, TSHX, LIVP, B12FOL, LACTIC, FT4, BMP #### [facility] [address] [place] [phone] Staff Rn: Tato Ibarra MD MCH (RBC) [Entitic mass] 30.5 pg Normal 25.2-33.5 [facility] Comment on above: Performed By: #### O SMO, LD, MG, JESUS, TSHX, LIVP, B12FOL, LACTIC, FT4, BMP #### [address] [phone] Staff Rn: Tato Ibarra MD MCHC (RBC) [Mass/Vol] 31.1 g/dL Normal 28.4-34.8 [facility] Comment on above: Performed By: #### O SMO, LD, MG, JESUS, TSHX, LIVP, B12FOL, LACTIC, FT4, BMP #### [facility] [address] [place] [phone] Staff Rn: Tato Ibarra MD MCV (RBC) [Entitic vol] 97.8 fL Normal 82.6-102.9 [facility] Comment on above: Performed By: #### O SMO, LD, MG, JESUS, TSHX, LIVP, B12FOL, LACTIC, FT4, BMP #### [facility] [address] [place] [phone] Staff Rn: Tato Ibarra MD Monocytes (Bld) [#/Vol] 0.51 10*3/uL Normal 0.10-1.20 [facility] Comment on above: Performed By: #### O SMO, LD, MG, JESUS, TSHX, LIVP, B12FOL, LACTIC, FT4, BMP #### [facility] [address] [place] [address] [phone] Staff Rn: Tato Ibarra MD Monocytes/100 WBC (Bld) 10 % Normal 3-12 [facility] Comment on above: Performed By: #### O SMO, LD, MG, JESUS, TSHX, LIVP, B12FOL, LACTIC, FT4, BMP #### [address] [id number] Staff Rn: Tato Ibarra MD Neutrophil (Seg) 60 % Normal 36-[address] [facility] Comment on above: Performed By: #### O SMO, LD, MG, JESUS, TSHX, LIVP, B12FOL, LACTIC, FT4, BMP #### [address] [address] Staff Rn: Tato Ibarra MD NRBC Automated 0.0 per 100 WBC Normal 0.0 [facility] Comment on above: Performed By: #### O SMO, LD, MG, JESUS, TSHX, LIVP, B12FOL, LACTIC, FT4, BMP #### [address] [id number] Staff Rn: Tato Ibarra MD Platelet mean volume (Bld) [Entitic vol] 10.1 fL Normal 8.1-13.5 [facility] Comment on above: Performed By: #### O SMO, LD, MG, JESUS, TSHX, LIVP, B12FOL, LACTIC, FT4, BMP #### [address] [address] Staff Rn: Tato Ibarra MD Platelets (Bld) [#/Vol] 227 10*3/uL Normal 138-453 [facility] Comment on above: Performed By: #### O SMO, LD, MG, JESUS, TSHX, LIVP, B12FOL, LACTIC, FT4, BMP #### [facility] [address] [place] [phone] Staff Rn: Tato Ibarra MD RBC (Bld) [#/Vol] 2.79 10*6/uL Low 3.95-5.11 [facility] Comment on above: Performed By: #### O SMO, LD, MG, JESUS, TSHX, LIVP, B12FOL, LACTIC, FT4, BMP #### [facility] [address] [place] [phone] Staff Rn: Tato Ibarra MD RBC morphology finding Nom (Bld) ANISOCYTOSIS PRESENT Normal [facility] Comment on above: Performed By: #### O SMO, LD, MG, JESUS, TSHX, LIVP, B12FOL, LACTIC, FT4, BMP #### [facility] [address] [place] [address] [phone] Staff Rn: Tato Ibarra MD WBC (Bld) [#/Vol] 5.2 10*3/uL Normal 3.5-11.3 [facility] Comment on above: Performed By: #### O SMO, LD, MG, JESUS, TSHX, LIVP, B12FOL, LACTIC, FT4, BMP #### [facility] [address] [place] [phone] Staff Rn: Tato Ibarra MD Hgb/Hcton 01-05-2024 Hematocrit (Bld) [Volume fraction] 29.3 % Low 36.3-47.1 [facility] Comment on above: Performed By: #### O SMO, LD, MG, JESUS, TSHX, LIVP, B12FOL, LACTIC, FT4, BMP #### [facility] [address] [place] [phone] Staff Rn: Tato Ibarra MD Hemoglobin (Bld) [Mass/Vol] 9.4 g/dL Low 11.9-15.1 [facility] Comment on above: Performed By: #### O SMO, LD, MG, JESUS, TSHX, LIVP, B12FOL, LACTIC, FT4, BMP #### [facility] [address] [place] [address] [phone] Staff Rn: Tato Ibarra MD K (Potassium)on 01-05-2024 Potassium [Moles/Vol] 3.4 mmol/L Low 3.7-5.3 [facility] Comment on above: Performed By: #### O SMO, LD, MG, JESUS, TSHX, LIVP, B12FOL, LACTIC, FT4, BMP #### [facility] [address] [place] [address] [id number] Staff Rn: Tato Ibarra MD Basic Metabolic Profon 01-03 Anion gap [Moles/Vol] 10 mmol/L Normal 9-16 [facility] Comment on above: Performed By: #### O SMO, LD, MG, JESUS, TSHX, LIVP, B12FOL, LACTIC, FT4, BMP #### [facility] [address] [place] [address] [id number] Staff Rn: Tato Ibarra MD Calcium [Mass/Vol] 8.0 mg/dL Low 8.6-10.4 [facility] Comment on above: Performed By: #### O SMO, LD, MG, JESUS, TSHX, LIVP, B12FOL, LACTIC, FT4, BMP #### [facility] [address] [place] [address] Staff Rn: Tato Ibarra MD Chloride [Moles/Vol] 104 mmol/L Normal 98-107 [facility] Comment on above: Performed By: #### O SMO, LD, MG, JESUS, TSHX, LIVP, B12FOL, LACTIC, FT4, BMP #### [facility] [address] [place] [address] Staff Rn: Tato Ibarra MD CO2 [Moles/Vol] 24 mmol/L Normal 20-31 [facility] Comment on above: Performed By: #### O SMO, LD, MG, JESUS, TSHX, LIVP, B12FOL, LACTIC, FT4, BMP #### [facility] [address] [place] [address] Staff Rn: Tato Ibarra MD Creatinine [Mass/Vol] 0.3 mg/dL Low 0.50-0.90 [facility] Comment on above: Performed By: #### O SMO, LD, MG, JESUS, TSHX, LIVP, B12FOL, LACTIC, FT4, BMP #### [address] [id number] Staff Rn: Tato Ibarra MD GFR/1.73 sq M.predicted among non-blacks MDRD (S/P/Bld) [Vol rate/Area] mL/min/{1.73_m2} Normal >60 [facility] Comment on above: Result Comment: These results [...] affects renal tubular secretion. Performed By: #### O SMO, LD, MG, JESUS, TSHX, LIVP, B12FOL, LACTIC, FT4, BMP #### [address] [address] Staff Rn: Tato Ibarra MD Glucose [Mass/Vol] 97 mg/dL Normal 74-99 [facility] Comment on above: Performed By: #### O SMO, LD, MG, JESUS, TSHX, LIVP, B12FOL, LACTIC, FT4, BMP #### [address] [address] Staff Rn: Tato Ibarra MD Potassium [Moles/Vol] 3.1 mmol/L Low 3.7-5.3 [facility] Comment on above: Performed By: #### O SMO, LD, MG, JESUS, TSHX, LIVP, B12FOL, LACTIC, FT4, BMP #### [address] [address] Staff Rn: Tato Ibarra MD Sodium [Moles/Vol] 138 mmol/L Normal 136-145 [facility] Comment on above: Performed By: #### O SMO, LD, MG, JESUS, TSHX, LIVP, B12FOL, LACTIC, FT4, BMP #### [address] [address] Staff Rn: Tato Ibarra MD Urea nitrogen [Mass/Vol] 3 mg/dL Low 6-20 [facility] Comment on above: Performed By: #### O SMO, LD, MG, JESUS, TSHX, LIVP, B12FOL, LACTIC, FT4, BMP #### [address] [id number] Staff Rn: Tato Ibarra MD CBC with Diffon 01-04-2024 Abs. Basophil 0.00 k/uL Normal 0.00-0.20 [facility] Comment on above: Performed By: #### O SMO, LD, MG, JESUS, TSHX, LIVP, B12FOL, LACTIC, FT4, BMP #### [address] [address] Staff Rn: Tato Ibarra MD Abs.Imm.Granulocyte 0.07 k/uL Normal 0.00-0.30 [facility] Comment on above: Performed By: #### O SMO, LD, MG, JESUS, TSHX, LIVP, B12FOL, LACTIC, FT4, BMP #### [facility] [employer] [address] [place] [address] Staff Rn: Tato Ibarra MD Abs.Neutrophil (Seg) 4.82 k/uL Normal 1.50-8.10 [facility] Comment on above: Performed By: #### O SMO, LD, MG, JESUS, TSHX, LIVP, B12FOL, LACTIC, FT4, BMP #### [facility] [employer] [address] [place] [address] 480[address] Staff Rn: Tato Ibarra MD Basophils/100 WBC (Bld) 0 % Normal 0-2 [facility] Comment on above: Performed By: #### O SMO, LD, MG, JESUS, TSHX, LIVP, B12FOL, LACTIC, FT4, BMP #### [address] [address] Staff Rn: Tato Ibarra MD Eosinophils (Bld) [#/Vol] 0.07 10*3/uL Normal 0.00-0.44 [facility] Comment on above: Performed By: #### O SMO, LD, MG, JESUS, TSHX, LIVP, B12FOL, LACTIC, FT4, BMP #### [place] [address] Staff Rn: Tato Ibarra MD Eosinophils/100 WBC (Bld) 1 % Normal 1-4 [facility] Comment on above: Performed By: #### O SMO, LD, MG, JESUS, TSHX, LIVP, B12FOL, LACTIC, FT4, BMP #### [place] [address] Staff Rn: Tato Ibarra MD Immature granulocytes/100 WBC (Bld) 1 % High 0 [facility] Comment on above: Performed By: #### O SMO, LD, MG, JESUS, TSHX, LIVP, B12FOL, LACTIC, FT4, BMP #### [facility] [employer] [address] [place] [address] Staff Rn: Tato Ibarra MD Lymphocytes (Bld) [#/Vol] 1.09 10*3/uL Low 1.10-3.70 [facility] Comment on above: Performed By: #### O SMO, LD, MG, JESUS, TSHX, LIVP, B12FOL, LACTIC, FT4, BMP #### [facility] [employer] [address] [place] [address] Staff Rn: Tato Ibarra MD Lymphocytes/100 WBC (Bld) 16 % Low 24-43 [facility] Comment on above: Performed By: #### O SMO, LD, MG, JESUS, TSHX, LIVP, B12FOL, LACTIC, FT4, BMP #### [address] [address] Staff Rn: Tato Ibarra MD Monocytes (Bld) [#/Vol] 0.75 10*3/uL Normal 0.10-1.20 [facility] Comment on above: Performed By: #### O SMO, LD, MG, JESUS, TSHX, LIVP, B12FOL, LACTIC, FT4, BMP #### [address] [address] Staff Rn: Tato Ibarra MD Monocytes/100 WBC (Bld) 11 % Normal 3-12 [facility] Comment on above: Performed By: #### O SMO, LD, MG, JESUS, TSHX, LIVP, B12FOL, LACTIC, FT4, BMP #### [address] [address] Staff Rn: Tato Ibarra MD Morphology Ritesh (Bld) [Interp] ANISOCYTOSIS PRESENT Normal [facility] Comment on above: Performed By: #### O SMO, LD, MG, JESUS, TSHX, LIVP, B12FOL, LACTIC, FT4, BMP #### [address] [address] Staff Rn: Tato Ibarra MD Neutrophil (Seg) 71 % High 36-[address] [facility] Comment on above: Performed By: #### O SMO, LD, MG, JESUS, TSHX, LIVP, B12FOL, LACTIC, FT4, BMP #### [address] [address] Staff Rn: Tato Ibarra MD Erythrocyte distribution width (RBC) [Ratio] 21.1 % High 11.8-14.4 [facility] Comment on above: Performed By: #### O SMO, LD, MG, JESUS, TSHX, LIVP, B12FOL, LACTIC, FT4, BMP #### [address] [phone] Staff Rn: Tato Ibarra MD Hematocrit (Bld) [Volume fraction] 27.7 % Low 36.3-47.1 [facility] Comment on above: Performed By: #### O SMO, LD, MG, JESUS, TSHX, LIVP, B12FOL, LACTIC, FT4, BMP #### [address] [phone] Staff Rn: Tato Ibarra MD Hemoglobin (Bld) [Mass/Vol] 8.8 g/dL Low 11.9-15.1 [facility] Comment on above: Performed By: #### O SMO, LD, MG, JESUS, TSHX, LIVP, B12FOL, LACTIC, FT4, BMP #### [facility] [employer] [address] [place] [address] 109[address] Staff Rn: Tato Ibarra MD MCH (RBC) [Entitic mass] 31.3 pg Normal 25.2-33.5 [facility] Comment on above: Performed By: #### O SMO, LD, MG, JESUS, TSHX, LIVP, B12FOL, LACTIC, FT4, BMP #### [facility] [employer] [address] [place] [address]683 Staff Rn: Tato Ibarra MD MCHC (RBC) [Mass/Vol] 31.8 g/dL Normal 28.4-34.8 [facility] Comment on above: Performed By: #### O SMO, LD, MG, JESUS, TSHX, LIVP, B12FOL, LACTIC, FT4, BMP #### [address] [address] Staff Rn: Tato Ibarra MD MCV (RBC) [Entitic vol] 98.6 fL Normal 82.6-102.9 [facility] Comment on above: Performed By: #### O SMO, LD, MG, JESUS, TSHX, LIVP, B12FOL, LACTIC, FT4, BMP #### [address] [address] Staff Rn: Tato Ibarra MD NRBC Automated 0.0 per 100 WBC Normal 0.0 [facility] Comment on above: Performed By: #### O SMO, LD, MG, JESUS, TSHX, LIVP, B12FOL, LACTIC, FT4, BMP #### [address] [address] Staff Rn: Tato Ibarra MD Platelet mean volume (Bld) [Entitic vol] 9.4 fL Normal 8.1-13.5 [facility] Comment on above: Performed By: #### O SMO, LD, MG, JESUS, TSHX, LIVP, B12FOL, LACTIC, FT4, BMP #### [address] [address] Staff Rn: Tato Ibarra MD Platelets (Bld) [#/Vol] 234 10*3/uL Normal 138-453 [facility] Comment on above: Performed By: #### O SMO, LD, MG, JESUS, TSHX, LIVP, B12FOL, LACTIC, FT4, BMP #### [address] [address] Staff Rn: Tato Ibarra MD RBC (Bld) [#/Vol] 2.81 10*6/uL Low 3.95-5.11 [facility] Comment on above: Performed By: #### O SMO, LD, MG, JESUS, TSHX, LIVP, B12FOL, LACTIC, FT4, BMP #### [address] [address] Staff Rn: Tato Ibarra MD WBC (Bld) [#/Vol] 6.8 10*3/uL Normal 3.5-11.3 [facility] Comment on above: Performed By: #### O SMO, LD, MG, JESUS, TSHX, LIVP, B12FOL, LACTIC, FT4, BMP #### [address] [address] Staff Rn: Ttao Ibarra MD Hgb/Hcton 01-04-2024 Hematocrit (Bld) [Volume fraction] 27.8 % Low 36.3-47.1 [facility] Comment on above: Performed By: #### O SMO, LD, MG, JESUS, TSHX, LIVP, B12FOL, LACTIC, FT4, BMP #### [address] [address] Staff Rn: Tato Ibarra MD Hemoglobin (Bld) [Mass/Vol] 8.9 g/dL Low 11.9-15.1 [facility] Comment on above: Performed By: #### O SMO, LD, MG, JESUS, TSHX, LIVP, B12FOL, LACTIC, FT4, BMP #### [address] [address] Staff Rn: Tato Ibarra MD Basic Metab w/rfx MGon 01-02 Anion gap [Moles/Vol] 10 mmol/L Normal 9-16 [facility] Comment on above: Performed By: #### P TT, PT #### [address] [address] Staff Rn: Tato Ibarra MD Calcium [Mass/Vol] 8.2 mg/dL Low 8.6-10.4 [facility] Comment on above: Performed By: #### P TT, PT #### [address] [address] Staff Rn: Tato Ibarra MD Chloride [Moles/Vol] 106 mmol/L Normal 98-107 [facility] Comment on above: Performed By: #### P TT, PT #### [address] [address] Staff Rn: Tato Ibarra MD CO2 [Moles/Vol] 24 mmol/L Normal 20-31 [facility] Comment on above: Performed By: #### P TT, PT #### [address] [address] Staff Rn: Tato Ibarra MD Creatinine [Mass/Vol] 0.3 mg/dL Low 0.50-0.90 [facility] Comment on above: Performed By: #### P TT, PT #### [address] [address] Staff Rn: Tato Ibarra MD GFR/1.73 sq M.predicted among non-blacks MDRD (S/P/Bld) [Vol rate/Area] mL/min/{1.73_m2} Normal >60 [facility] Comment on above: Result Comment: These results [...] tubular secretion. Performed By: #### P TT, PT #### [address] [address] Staff Rn: Tato Ibarra MD Glucose [Mass/Vol] 95 mg/dL Normal 74-99 [facility] Comment on above: Performed By: #### P TT, PT #### [address] [address] Staff Rn: Tato Ibarra MD Potassium [Moles/Vol] 3.4 mmol/L Low 3.7-5.3 [facility] Comment on above: Performed By: #### P TT, PT #### [address] [address] Staff Rn: Tato Ibarra MD Sodium [Moles/Vol] 140 mmol/L Normal 136-145 [facility] Comment on above: Performed By: #### P TT, PT #### [address] [address] Staff Rn: Tato Ibarra MD Urea nitrogen [Mass/Vol] 3 mg/dL Low 6-20 [facility] Comment on above: Performed By: #### P TT, PT #### [address] [address] Staff Rn: Tato Ibarra MD CBCon 01-03-2024 Erythrocyte distribution width (RBC) [Ratio] 22.1 % High 11.8-14.4 [facility] Comment on above: Performed By: #### O SMO, LD, MG, JESUS, TSHX, LIVP, B12FOL, LACTIC, FT4, BMP #### [address] [address] Staff Rn: Tato Ibarra MD Hematocrit (Bld) [Volume fraction] 26.2 % Low 36.3-47.1 [facility] Comment on above: Performed By: #### O SMO, LD, MG, JESUS, TSHX, LIVP, B12FOL, LACTIC, FT4, BMP #### [facility] [employer] [address] [place] [address] Staff Rn: Tato Ibarra MD Hemoglobin (Bld) [Mass/Vol] 9.0 g/dL Low 11.9-15.1 [facility] Comment on above: Performed By: #### O SMO, LD, MG, JESUS, TSHX, LIVP, B12FOL, LACTIC, FT4, BMP #### [address] [phone] Staff Rn: Tato Ibarra MD MCH (RBC) [Entitic mass] 31.9 pg Normal 25.2-33.5 [facility] Comment on above: Performed By: #### O SMO, LD, MG, JESUS, TSHX, LIVP, B12FOL, LACTIC, FT4, BMP #### [address] [id number] Staff Rn: Tato Ibarra MD MCHC (RBC) [Mass/Vol] 34.4 g/dL Normal 28.4-34.8 [facility] Comment on above: Performed By: #### O SMO, LD, MG, JESUS, TSHX, LIVP, B12FOL, LACTIC, FT4, BMP #### [address] [address] Staff Rn: Tato Ibarra MD MCV (RBC) [Entitic vol] 92.9 fL Normal 82.6-102.9 [facility] Comment on above: Performed By: #### O SMO, LD, MG, JESUS, TSHX, LIVP, B12FOL, LACTIC, FT4, BMP #### [address] [address] Staff Rn: Tato Ibarra MD NRBC Automated 0.0 per 100 WBC Normal 0.0 [facility] Comment on above: Performed By: #### O SMO, LD, MG, JESUS, TSHX, LIVP, B12FOL, LACTIC, FT4, BMP #### [address] [address] Staff Rn: Tato Ibarra MD Platelet mean volume (Bld) [Entitic vol] 9.6 fL Normal 8.1-13.5 [facility] Comment on above: Performed By: #### O SMO, LD, MG, JESUS, TSHX, LIVP, B12FOL, LACTIC, FT4, BMP #### [address] [address] Staff Rn: Tato Ibarra MD Platelets (Bld) [#/Vol] 219 10*3/uL Normal 138-453 [facility] Comment on above: Performed By: #### O SMO, LD, MG, JESUS, TSHX, LIVP, B12FOL, LACTIC, FT4, BMP #### [address] [address] Staff Rn: Tato Ibarra MD RBC (Bld) [#/Vol] 2.82 10*6/uL Low 3.95-5.11 [facility] Comment on above: Performed By: #### O SMO, LD, MG, JESUS, TSHX, LIVP, B12FOL, LACTIC, FT4, BMP #### [place] [address] Staff Rn: Tato Ibarra MD WBC (Bld) [#/Vol] 8.4 10*3/uL Normal 3.5-11.3 [facility] Comment on above: Performed By: #### O SMO, LD, MG, JESUS, TSHX, LIVP, B12FOL, LACTIC, FT4, BMP #### [place] [address] Staff Rn: Tato Ibarra MD CBC with Diffon 01-03-2024 Abs. Basophil 0.00 k/uL Normal 0.00-0.20 [facility] Comment on above: Performed By: #### P TT, PT #### [address] [address] Staff Rn: Tato Ibarra MD Abs.Imm.Granulocyte 0.00 k/uL Normal 0.00-0.30 [facility] Comment on above: Performed By: #### P TT, PT #### [address] [address] Staff Rn: Tato Ibarra MD Abs.Neutrophil (Seg) 5.40 k/uL Normal 1.50-8.10 [facility] Comment on above: Performed By: #### P TT, PT #### [address] [address] Staff Rn: Tato Ibarra MD Basophils/100 WBC (Bld) 0 % Normal 0-2 [facility] Comment on above: Performed By: #### P TT, PT #### [place] [address] Staff Rn: Tato Ibarra MD Eosinophils (Bld) [#/Vol] 0.00 10*3/uL Normal 0.00-0.44 [facility] Comment on above: Performed By: #### P TT, PT #### [place] [address] Staff Rn: Tato Ibarra MD Eosinophils/100 WBC (Bld) 0 % Low 1-4 [facility] Comment on above: Performed By: #### P TT, PT #### [address] [address] Staff Rn: Tato Ibarra MD Immature granulocytes/100 WBC (Bld) 0 % Normal 0 [facility] Comment on above: Performed By: #### P TT, PT #### [place] [address] Staff Rn: Tato Ibarra MD Lymphocytes (Bld) [#/Vol] 1.24 10*3/uL Normal 1.10-3.70 [facility] Comment on above: Performed By: #### P TT, PT #### [facility] [employer] [address] [place] [address] Staff Rn: Tato Ibarra MD Lymphocytes/100 WBC (Bld) 17 % Low 24-43 [facility] Comment on above: Performed By: #### P TT, PT #### [address] [address] Staff Rn: Tato Ibarra MD Monocytes (Bld) [#/Vol] 0.66 10*3/uL Normal 0.10-1.20 [facility] Comment on above: Performed By: #### P TT, PT #### [address] [address] Staff Rn: Tato Ibarra MD Monocytes/100 WBC (Bld) 9 % Normal 3-12 [facility] Comment on above: Performed By: #### P TT, PT #### [address] [address] Staff Rn: Tato Ibarra MD Morphology Ritesh (Bld) [Interp] ANISOCYTOSIS PRESENT Normal [facility] Comment on above: Performed By: #### P TT, PT #### [address] [address] Staff Rn: Tato Ibarra MD Neutrophil (Seg) 74 % High 36-[address] [facility] Comment on above: Performed By: #### P TT, PT #### [address] [address] Staff Rn: Tato Ibarra MD Erythrocyte distribution width (RBC) [Ratio] 21.8 % High 11.8-14.4 [facility] Comment on above: Performed By: #### P TT, PT #### [address] [address] Staff Rn: Tato Ibarra MD Hematocrit (Bld) [Volume fraction] 25.5 % Low 36.3-47.1 [facility] Comment on above: Performed By: #### P TT, PT #### [address] [address] Staff Rn: Tato Ibarra MD Hemoglobin (Bld) [Mass/Vol] 8.6 g/dL Low 11.9-15.1 [facility] Comment on above: Performed By: #### P TT, PT #### [address] [address] Staff Rn: Tato Ibarra MD MCH (RBC) [Entitic mass] 31.6 pg Normal 25.2-33.5 [facility] Comment on above: Performed By: #### P TT, PT #### [address] [address] Staff Rn: Tato Ibarra MD MCHC (RBC) [Mass/Vol] 33.7 g/dL Normal 28.4-34.8 [facility] Comment on above: Performed By: #### P TT, PT #### [address] [address] Staff Rn: Tato Ibarra MD MCV (RBC) [Entitic vol] 93.8 fL Normal 82.6-102.9 [facility] Comment on above: Performed By: #### P TT, PT #### [address] [address] Staff Rn: Tato Ibarra MD NRBC Automated 0.0 per 100 WBC Normal 0.0 [facility] Comment on above: Performed By: #### P TT, PT #### [address] [address] Staff Rn: Tato Ibarra MD Platelet mean volume (Bld) [Entitic vol] 9.7 fL Normal 8.1-13.5 [facility] Comment on above: Performed By: #### P TT, PT #### [address] [address] Staff Rn: Tato Ibarra MD Platelets (Bld) [#/Vol] 220 10*3/uL Normal 138-453 [facility] Comment on above: Performed By: #### P TT, PT #### [address] [address] Staff Rn: Tato Ibarra MD RBC (Bld) [#/Vol] 2.72 10*6/uL Low 3.95-5.11 [facility] Comment on above: Performed By: #### P TT, PT #### [address] [address] Staff Rn: Tato Ibarra MD WBC (Bld) [#/Vol] 7.3 10*3/uL Normal 3.5-11.3 [facility] Comment on above: Performed By: #### P TT, PT #### [address] [address] Staff Rn: Tato Ibarra MD Hgb/Hcton 01-03-2024 Hematocrit (Bld) [Volume fraction] 28.3 % Low 36.3-47.1 [facility] Comment on above: Performed By: #### O SMO, LD, MG, JESUS, TSHX, LIVP, B12FOL, LACTIC, FT4, BMP #### [address] [address] Staff Rn: Tato Ibarra MD Hemoglobin (Bld) [Mass/Vol] 9.3 g/dL Low 11.9-15.1 [facility] Comment on above: Performed By: #### O SMO, LD, MG, JESUS, TSHX, LIVP, B12FOL, LACTIC, FT4, BMP #### [address] [address] Staff Rn: Tato Ibarra MD Hematocrit (Bld) [Volume fraction] 27.3 % Low 36.3-47.1 [facility] Comment on above: Performed By: #### P TT, PT #### [address] [address] Staff Rn: Tato Ibarra MD Hemoglobin (Bld) [Mass/Vol] 9.1 g/dL Low 11.9-15.1 [facility] Comment on above: Performed By: #### P TT, PT #### [facility] [employer] [address] [place] [address] [phone] Staff Rn: Tato Ibarra MD K (Potassium)on 01-03-2024 Potassium [Moles/Vol] 3.1 mmol/L Low 3.7-5.3 [facility] Comment on above: Performed By: #### O SMO, LD, MG, JESUS, TSHX, LIVP, B12FOL, LACTIC, FT4, BMP #### [facility] [employer] [address] [place] [address] Staff Rn: Tato Ibarra MD Magnesiumon 01-03-2024 Magnesium [Mass/Vol] 1.8 mg/dL Normal 1.6-2.6 [facility] Comment on above: Performed By: #### P TT, PT #### [address] [address] Staff Rn: Tato Ibarra MD Basic Metab w/rfx MGon 01-01 Anion gap [Moles/Vol] 9 mmol/L Normal 9-16 [facility] Comment on above: Performed By: #### O SMO, LD, MG, JESUS, TSHX, LIVP, B12FOL, LACTIC, FT4, BMP #### [facility] [employer] [address] [place] [address] Staff Rn: Tato Ibarra MD Calcium [Mass/Vol] 7.8 mg/dL Low 8.6-10.4 [facility] Comment on above: Performed By: #### O SMO, LD, MG, JESUS, TSHX, LIVP, B12FOL, LACTIC, FT4, BMP #### [facility] [address] [place] [address] Staff Rn: Tato Ibarra MD Chloride [Moles/Vol] 110 mmol/L High 98-107 [facility] Comment on above: Performed By: #### O SMO, LD, MG, JESUS, TSHX, LIVP, B12FOL, LACTIC, FT4, BMP #### [facility] [address] [place] [address] [phone] Staff Rn: Tato Ibarra MD CO2 [Moles/Vol] 22 mmol/L Normal 20-31 [facility] Comment on above: Performed By: #### O SMO, LD, MG, JESUS, TSHX, LIVP, B12FOL, LACTIC, FT4, BMP #### [address] [phone] Staff Rn: Tato Ibarra MD Creatinine [Mass/Vol] 0.3 mg/dL Low 0.50-0.90 [facility] Comment on above: Performed By: #### O SMO, LD, MG, JESUS, TSHX, LIVP, B12FOL, LACTIC, FT4, BMP #### [address] [phone] Staff Rn: Tato Ibarra MD GFR/1.73 sq M.predicted among non-blacks MDRD (S/P/Bld) [Vol rate/Area] mL/min/{1.73_m2} Normal >60 [facility] Comment on above: Result Comment: These results [...] affects renal tubular secretion. Performed By: #### O SMO, LD, MG, JESUS, TSHX, LIVP, B12FOL, LACTIC, FT4, BMP #### [address] [phone] Staff Rn: Tato Ibarra MD Glucose [Mass/Vol] 105 mg/dL High 74-99 [facility] Comment on above: Performed By: #### O SMO, LD, MG, JESUS, TSHX, LIVP, B12FOL, LACTIC, FT4, BMP #### [address] [id number] Staff Rn: Tato Ibarra MD Potassium [Moles/Vol] 3.0 mmol/L Low 3.7-5.3 [facility] Comment on above: Performed By: #### O SMO, LD, MG, JESUS, TSHX, LIVP, B12FOL, LACTIC, FT4, BMP #### [facility] [employer] [address] [place] [address] Staff Rn: Tato Ibarra MD Sodium [Moles/Vol] 141 mmol/L Normal 136-145 [facility] Comment on above: Performed By: #### O SMO, LD, MG, JESUS, TSHX, LIVP, B12FOL, LACTIC, FT4, BMP #### [facility] [employer] [address] [place] [address] [phone] Staff Rn: Tato Ibarra MD Urea nitrogen [Mass/Vol] 8 mg/dL Normal 6-20 [facility] Comment on above: Performed By: #### O SMO, LD, MG, JESUS, TSHX, LIVP, B12FOL, LACTIC, FT4, BMP #### [facility] [employer] [address] [place] [phone] Staff Rn: Tato Ibarra MD CBC with Diffon 01-02-2024 Abs. Basophil 0.00 k/uL Normal 0.00-0.20 [facility] Comment on above: Performed By: #### O SMO, LD, MG, JESUS, TSHX, LIVP, B12FOL, LACTIC, FT4, BMP #### [facility] [employer] [address] [place] [address] [phone] Staff Rn: Tato Ibarra MD Abs.Imm.Granulocyte 0.00 k/uL Normal 0.00-0.30 [facility] Comment on above: Performed By: #### O SMO, LD, MG, JESUS, TSHX, LIVP, B12FOL, LACTIC, FT4, BMP #### [address] [address] Staff Rn: Tato Ibarra MD Abs.Neutrophil (Seg) 4.48 k/uL Normal 1.50-8.10 [facility] Comment on above: Performed By: #### O SMO, LD, MG, JESUS, TSHX, LIVP, B12FOL, LACTIC, FT4, BMP #### [address] [address] Staff Rn: Tato Ibarra MD Basophils/100 WBC (Bld) 0 % Normal 0-2 [facility] Comment on above: Performed By: #### O SMO, LD, MG, JESUS, TSHX, LIVP, B12FOL, LACTIC, FT4, BMP #### [address] [address] Staff Rn: Tato Ibarra MD Eosinophils (Bld) [#/Vol] 0.00 10*3/uL Normal 0.00-0.44 [facility] Comment on above: Performed By: #### O SMO, LD, MG, JESUS, TSHX, LIVP, B12FOL, LACTIC, FT4, BMP #### [facility] [address] [place] [phone] Staff Rn: Tato Ibarra MD Eosinophils/100 WBC (Bld) 0 % Low 1-4 [facility] Comment on above: Performed By: #### O SMO, LD, MG, JESUS, TSHX, LIVP, B12FOL, LACTIC, FT4, BMP #### [facility] [address] [place] [phone] Staff Rn: Tato Ibarra MD Immature granulocytes/100 WBC (Bld) 0 % Normal 0 [facility] Comment on above: Performed By: #### O SMO, LD, MG, JESUS, TSHX, LIVP, B12FOL, LACTIC, FT4, BMP #### [facility] [address] [place] [phone] Staff Rn: Tato Ibarra MD Lymphocytes (Bld) [#/Vol] 1.50 10*3/uL Normal 1.10-3.70 [facility] Comment on above: Performed By: #### O SMO, LD, MG, JESUS, TSHX, LIVP, B12FOL, LACTIC, FT4, BMP #### [address] [id number] Staff Rn: Tato Ibarra MD Lymphocytes/100 WBC (Bld) 22 % Low 24-43 [facility] Comment on above: Performed By: #### O SMO, LD, MG, JESUS, TSHX, LIVP, B12FOL, LACTIC, FT4, BMP #### [facility] [address] [place] [id number] Staff Rn: Tato Ibarra MD Monocytes (Bld) [#/Vol] 0.82 10*3/uL Normal 0.10-1.20 [facility] Comment on above: Performed By: #### O SMO, LD, MG, JESUS, TSHX, LIVP, B12FOL, LACTIC, FT4, BMP #### [facility] [address] [place] [id number] Staff Rn: Tato Ibarra MD Monocytes/100 WBC (Bld) 12 % Normal 3-12 [facility] Comment on above: Performed By: #### O SMO, LD, MG, JESUS, TSHX, LIVP, B12FOL, LACTIC, FT4, BMP #### [facility] [address] [place] [phone] Staff Rn: Tato Ibarra MD Morphology Ritesh (Bld) [Interp] ANISOCYTOSIS PRESENT Normal [facility] Comment on above: Result Comment: HYPO CHROMIA PRESENT Performed By: #### O SMO, LD, MG, JESUS, TSHX, LIVP, B12FOL, LACTIC, FT4, BMP #### [address] [address] Staff Rn: Tato Ibarra MD Neutrophil (Seg) 66 % High 36-[address] [facility] Comment on above: Performed By: #### O SMO, LD, MG, JESUS, TSHX, LIVP, B12FOL, LACTIC, FT4, BMP #### [address] [address] Staff Rn: Tato Ibarra MD Erythrocyte distribution width (RBC) [Ratio] 23.0 % High 11.8-14.4 [facility] Comment on above: Performed By: #### O SMO, LD, MG, JESUS, TSHX, LIVP, B12FOL, LACTIC, FT4, BMP #### [facility] [address] [place] [phone] Staff Rn: Tato Ibarra MD Hematocrit (Bld) [Volume fraction] 24.8 % Low 36.3-47.1 [facility] Comment on above: Performed By: #### O SMO, LD, MG, JESUS, TSHX, LIVP, B12FOL, LACTIC, FT4, BMP #### [facility] [employer] [address] [place] [phone] Staff Rn: Tato Ibarra MD Hemoglobin (Bld) [Mass/Vol] 8.4 g/dL Low 11.9-15.1 [facility] Comment on above: Performed By: #### O SMO, LD, MG, JESUS, TSHX, LIVP, B12FOL, LACTIC, FT4, BMP #### [facility] [address] [place] [phone] Staff Rn: Tato Ibarra MD MCH (RBC) [Entitic mass] 31.1 pg Normal 25.2-33.5 [facility] Comment on above: Performed By: #### O SMO, LD, MG, JESUS, TSHX, LIVP, B12FOL, LACTIC, FT4, BMP #### [facility] [address] [place] [phone] Staff Rn: Tato Ibarra MD MCHC (RBC) [Mass/Vol] 33.9 g/dL Normal 28.4-34.8 [facility] Comment on above: Performed By: #### O SMO, LD, MG, JESUS, TSHX, LIVP, B12FOL, LACTIC, FT4, BMP #### [address] [address] Staff Rn: Tato Ibarra MD MCV (RBC) [Entitic vol] 91.9 fL Normal 82.6-102.9 [facility] Comment on above: Performed By: #### O SMO, LD, MG, JESUS, TSHX, LIVP, B12FOL, LACTIC, FT4, BMP #### [facility] [address] [place] [phone] Staff Rn: Tato Ibarra MD NRBC Automated 0.0 per 100 WBC Normal 0.0 [facility] Comment on above: Performed By: #### O SMO, LD, MG, JESUS, TSHX, LIVP, B12FOL, LACTIC, FT4, BMP #### [facility] [employer] [address] [place] [phone] Staff Rn: Tato Ibarra MD Platelet mean volume (Bld) [Entitic vol] 9.3 fL Normal 8.1-13.5 [facility] Comment on above: Performed By: #### O SMO, LD, MG, JESUS, TSHX, LIVP, B12FOL, LACTIC, FT4, BMP #### [facility] [address] [place] [phone] Staff Rn: Tato Ibarra MD Platelets (Bld) [#/Vol] 207 10*3/uL Normal 138-453 [facility] Comment on above: Performed By: #### O SMO, LD, MG, JESUS, TSHX, LIVP, B12FOL, LACTIC, FT4, BMP #### [facility] [address] [place] [phone] Staff Rn: Tato Ibarra MD RBC (Bld) [#/Vol] 2.70 10*6/uL Low 3.95-5.11 [facility] Comment on above: Performed By: #### O SMO, LD, MG, JESUS, TSHX, LIVP, B12FOL, LACTIC, FT4, BMP #### [address] [address] Staff Rn: Tato Ibarra MD WBC (Bld) [#/Vol] 6.8 10*3/uL Normal 3.5-11.3 [facility] Comment on above: Performed By: #### O SMO, LD, MG, JESUS, TSHX, LIVP, B12FOL, LACTIC, FT4, BMP #### [address] [address] Staff Rn: Tato Ibarra MD Abs. Basophil 0.00 k/uL Normal 0.00-0.20 [facility] Comment on above: Performed By: #### O SMO, LD, MG, JESUS, TSHX, LIVP, B12FOL, LACTIC, FT4, BMP #### [facility] [address] [place] [phone] Staff Rn: Tato Ibarra MD Abs.Imm.Granulocyte 0.00 k/uL Normal 0.00-0.30 [facility] Comment on above: Performed By: #### O SMO, LD, MG, JESUS, TSHX, LIVP, B12FOL, LACTIC, FT4, BMP #### [facility] [address] [place] [phone] Staff Rn: Tato Ibarra MD Abs.Neutrophil (Seg) 4.76 k/uL Normal 1.50-8.10 [facility] Comment on above: Performed By: #### O SMO, LD, MG, JESUS, TSHX, LIVP, B12FOL, LACTIC, FT4, BMP #### [address] [address] Staff Rn: Tato Ibarra MD Basophils/100 WBC (Bld) 0 % Normal 0-2 [facility] Comment on above: Performed By: #### O SMO, LD, MG, JESUS, TSHX, LIVP, B12FOL, LACTIC, FT4, BMP #### [place] [address] Staff Rn: Tato Ibarra MD Eosinophils (Bld) [#/Vol] 0.00 10*3/uL Normal 0.00-0.44 [facility] Comment on above: Performed By: #### O SMO, LD, MG, JESUS, TSHX, LIVP, B12FOL, LACTIC, FT4, BMP #### [place] [address] Staff Rn: Tato Ibarra MD Eosinophils/100 WBC (Bld) 0 % Low 1-4 [facility] Comment on above: Performed By: #### O SMO, LD, MG, JESUS, TSHX, LIVP, B12FOL, LACTIC, FT4, BMP #### [place] [address] Staff Rn: Tato Ibarra MD Immature granulocytes/100 WBC (Bld) 0 % Normal 0 [facility] Comment on above: Performed By: #### O SMO, LD, MG, JESUS, TSHX, LIVP, B12FOL, LACTIC, FT4, BMP #### [address] [address] Staff Rn: Tato Ibarra MD Lymphocytes (Bld) [#/Vol] 1.52 10*3/uL Normal 1.10-3.70 [facility] Comment on above: Performed By: #### O SMO, LD, MG, JESUS, TSHX, LIVP, B12FOL, LACTIC, FT4, BMP #### [facility] [address] [place] [address] Staff Rn: Tato Ibarra MD Lymphocytes/100 WBC (Bld) 22 % Low 24-43 [facility] Comment on above: Performed By: #### O SMO, LD, MG, JESUS, TSHX, LIVP, B12FOL, LACTIC, FT4, BMP #### [address] [address] Staff Rn: Tato Ibarra MD Monocytes (Bld) [#/Vol] 0.62 10*3/uL Normal 0.10-1.20 [facility] Comment on above: Performed By: #### O SMO, LD, MG, JESUS, TSHX, LIVP, B12FOL, LACTIC, FT4, BMP #### [address] [address] Staff Rn: Tato Ibarra MD Monocytes/100 WBC (Bld) 9 % Normal 3-12 [facility] Comment on above: Performed By: #### O SMO, LD, MG, JESUS, TSHX, LIVP, B12FOL, LACTIC, FT4, BMP #### [facility] [address] [place] [phone] Staff Rn: Tato Ibarra MD Morphology Ritesh (Bld) [Interp] ANISOCYTOSIS PRESENT Normal [facility] Comment on above: Result Comment: HYPO CHROMIA PRESENT Performed By: #### O SMO, LD, MG, JESUS, TSHX, LIVP, B12FOL, LACTIC, FT4, BMP #### [address] [address] Staff Rn: Tato Ibarra MD Neutrophil (Seg) 69 % High 36-[address] [facility] Comment on above: Performed By: #### O SMO, LD, MG, JESUS, TSHX, LIVP, B12FOL, LACTIC, FT4, BMP #### [address] [phone] Staff Rn: Tato Ibarra MD Erythrocyte distribution width (RBC) [Ratio] 22.9 % High 11.8-14.4 [facility] Comment on above: Performed By: #### O SMO, LD, MG, JESUS, TSHX, LIVP, B12FOL, LACTIC, FT4, BMP #### [address] [phone] Staff Rn: Tato Ibarra MD Hematocrit (Bld) [Volume fraction] 25.7 % Low 36.3-47.1 [facility] Comment on above: Performed By: #### O SMO, LD, MG, JESUS, TSHX, LIVP, B12FOL, LACTIC, FT4, BMP #### [address] [phone] Staff Rn: Tato Ibarra MD Hemoglobin (Bld) [Mass/Vol] 8.8 g/dL Low 11.9-15.1 [facility] Comment on above: Performed By: #### O SMO, LD, MG, JESUS, TSHX, LIVP, B12FOL, LACTIC, FT4, BMP #### [facility] [address] [place] [address] [phone] Staff Rn: Tato Ibarra MD MCH (RBC) [Entitic mass] 31.5 pg Normal 25.2-33.5 [facility] Comment on above: Performed By: #### O SMO, LD, MG, JESUS, TSHX, LIVP, B12FOL, LACTIC, FT4, BMP #### [address] [phone] Staff Rn: Tato Ibarra MD MCHC (RBC) [Mass/Vol] 34.2 g/dL Normal 28.4-34.8 [facility] Comment on above: Performed By: #### O SMO, LD, MG, JESUS, TSHX, LIVP, B12FOL, LACTIC, FT4, BMP #### [address] [address] Staff Rn: Tato Ibarra MD MCV (RBC) [Entitic vol] 92.1 fL Normal 82.6-102.9 [facility] Comment on above: Performed By: #### O SMO, LD, MG, JESUS, TSHX, LIVP, B12FOL, LACTIC, FT4, BMP #### [address] [address] Staff Rn: Tato Ibarra MD NRBC Automated 0.0 per 100 WBC Normal 0.0 [facility] Comment on above: Performed By: #### O SMO, LD, MG, JESUS, TSHX, LIVP, B12FOL, LACTIC, FT4, BMP #### [address] [address] Staff Rn: Tato Ibarra MD Platelet mean volume (Bld) [Entitic vol] 9.2 fL Normal 8.1-13.5 [facility] Comment on above: Performed By: #### O SMO, LD, MG, JESUS, TSHX, LIVP, B12FOL, LACTIC, FT4, BMP #### [address] [address] Staff Rn: Tato Ibarra MD Platelets (Bld) [#/Vol] 215 10*3/uL Normal 138-453 [facility] Comment on above: Performed By: #### O SMO, LD, MG, JESUS, TSHX, LIVP, B12FOL, LACTIC, FT4, BMP #### [address] [address] Staff Rn: Tato Ibarra MD RBC (Bld) [#/Vol] 2.79 10*6/uL Low 3.95-5.11 [facility] Comment on above: Performed By: #### O SMO, LD, MG, JESUS, TSHX, LIVP, B12FOL, LACTIC, FT4, BMP #### [facility] [address], [place] [phone] Staff Rn: Tato Ibarra MD WBC (Bld) [#/Vol] 6.9 10*3/uL Normal 3.5-11.3 [facility] Comment on above: Performed By: #### O SMO, LD, MG, JESUS, TSHX, LIVP, B12FOL, LACTIC, FT4, BMP #### [facility] [address], [place] [phone] Staff Rn: Tato Ibarra MD CTA ABDOMEN PELVIS W WO CONT [facility] 01-02-2024 CTA ABDOMEN PELVIS W WO CONTRAST [...] focal abnormality, large stones or mass. 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 2. Post Linsey-en-Y gastric bypass surgery with mural thickening and [...] Nasir Martinez MD 01/02/24 Final result Normal [facility] Comp Metabolic Pr/rfx MGon 0 - Albumin [Mass/Vol] 2.7 g/dL Low 3.5-5.2 [facility] Comment on above: Performed By: #### O SMO, LD, MG, JESUS, TSHX, LIVP, B12FOL, LACTIC, FT4, BMP #### [facility] [address] [place] [address] Staff Rn: Tato Ibarra MD Albumin/Glob Ratio 2.0 Normal 1.0-2.5 [facility] Comment on above: Performed By: #### O SMO, LD, MG, JESUS, TSHX, LIVP, B12FOL, LACTIC, FT4, BMP #### [address] [address] Staff Rn: Tato Ibarra MD Alkaline Phos 124 U/L High 35-104 [facility] Comment on above: Performed By: #### O SMO, LD, MG, JESUS, TSHX, LIVP, B12FOL, LACTIC, FT4, BMP #### [address] [address] Staff Rn: Tato Ibarra MD ALT [Catalytic activity/Vol] 13 U/L Normal 10-35 [facility] Comment on above: Performed By: #### O SMO, LD, MG, JESUS, TSHX, LIVP, B12FOL, LACTIC, FT4, BMP #### [address] [address] Staff Rn: Tato Ibarra MD Anion gap [Moles/Vol] 12 mmol/L Normal 9-16 [facility] Comment on above: Performed By: #### O SMO, LD, MG, JESUS, TSHX, LIVP, B12FOL, LACTIC, FT4, BMP #### [address] [address] Staff Rn: Tato Ibarra MD AST [Catalytic activity/Vol] 42 U/L High 10-35 [facility] Comment on above: Performed By: #### O SMO, LD, MG, JESUS, TSHX, LIVP, B12FOL, LACTIC, FT4, BMP #### [address] [address] Staff Rn: Tato Ibarra MD Bilirubin [Mass/Vol] 0.8 mg/dL Normal 0.00-1.20 [facility] Comment on above: Performed By: #### O SMO, LD, MG, JESUS, TSHX, LIVP, B12FOL, LACTIC, FT4, BMP #### [address] [address] Staff Rn: Tato Ibarra MD Calcium [Mass/Vol] 7.8 mg/dL Low 8.6-10.4 [facility] Comment on above: Performed By: #### O SMO, LD, MG, JESUS, TSHX, LIVP, B12FOL, LACTIC, FT4, BMP #### [facility] [address] [place] [address] [phone] Staff Rn: Tato Ibarra MD Chloride [Moles/Vol] 106 mmol/L Normal 98-107 [facility] Comment on above: Performed By: #### O SMO, LD, MG, JESUS, TSHX, LIVP, B12FOL, LACTIC, FT4, BMP #### [facility] [address] [place] [address] [phone] Staff Rn: Tato Ibarra MD CO2 [Moles/Vol] 19 mmol/L Low 20-31 [facility] Comment on above: Performed By: #### O SMO, LD, MG, JESUS, TSHX, LIVP, B12FOL, LACTIC, FT4, BMP #### [facility] [address] [place] [address] [phone] Staff Rn: Tato Ibarra MD Creatinine [Mass/Vol] 0.3 mg/dL Low 0.50-0.90 [facility] Comment on above: Performed By: #### O SMO, LD, MG, JESUS, TSHX, LIVP, B12FOL, LACTIC, FT4, BMP #### [facility] [address] [place] [address] [phone] Staff Rn: Tato Ibarra MD GFR/1.73 sq M.predicted among non-blacks MDRD (S/P/Bld) [Vol rate/Area] mL/min/{1.73_m2} Normal >60 [facility] Comment on above: Result Comment: These results [...] affects renal tubular secretion. Performed By: #### O SMO, LD, MG, JESUS, TSHX, LIVP, B12FOL, LACTIC, FT4, BMP #### [address] [address] Staff Rn: Tato Ibarra MD Glucose [Mass/Vol] 104 mg/dL High 74-99 [facility] Comment on above: Performed By: #### O SMO, LD, MG, JESUS, TSHX, LIVP, B12FOL, LACTIC, FT4, BMP #### [address] [address] Staff Rn: Tato Ibarra MD Potassium [Moles/Vol] 3.9 mmol/L Normal 3.7-5.3 [facility] Comment on above: Performed By: #### O SMO, LD, MG, JESUS, TSHX, LIVP, B12FOL, LACTIC, FT4, BMP #### [address] [address] Staff Rn: Tato Ibarra MD Protein [Mass/Vol] 4.5 g/dL Low 6.6-8.7 [facility] Comment on above: Performed By: #### O SMO, LD, MG, JESUS, TSHX, LIVP, B12FOL, LACTIC, FT4, BMP #### [address] [address] Staff Rn: Tato Ibarra MD Sodium [Moles/Vol] 137 mmol/L Normal 136-145 [facility] Comment on above: Performed By: #### O SMO, LD, MG, JESUS, TSHX, LIVP, B12FOL, LACTIC, FT4, BMP #### [address] [address] Staff Rn: Tato Ibarra MD Urea nitrogen [Mass/Vol] 8 mg/dL Normal 6-20 [facility] Comment on above: Performed By: #### O SMO, LD, MG, JESUS, TSHX, LIVP, B12FOL, LACTIC, FT4, BMP #### [facility] [address] [place] [phone] Staff Rn: Tato Ibarra MD Glucose,Whole Bloodon 2023 Glucose [Mass/Vol] 93 mg/dL Normal 65-105 [facility] Hgb/Hcton 01-02-2024 Hematocrit (Bld) [Volume fraction] 26.3 % Low 36.3-47.1 [facility] Comment on above: Performed By: #### P TT, PT #### [facility] [address] [place] [address] [phone] Staff Rn: Tato Ibarra MD Hemoglobin (Bld) [Mass/Vol] 9.1 g/dL Low 11.9-15.1 [facility] Comment on above: Performed By: #### P TT, PT #### [facility] [address] [place] [phone] Staff Rn: Tato Ibarra MD Hematocrit (Bld) [Volume fraction] 25.2 % Low 36.3-47.1 [facility] Comment on above: Performed By: #### O SMO, LD, MG, JESUS, TSHX, LIVP, B12FOL, LACTIC, FT4, BMP #### [facility] [address] [place] [phone] Staff Rn: Tato Ibarra MD Hemoglobin (Bld) [Mass/Vol] 8.5 g/dL Low 11.9-15.1 [facility] Comment on above: Performed By: #### O SMO, LD, MG, JESUS, TSHX, LIVP, B12FOL, LACTIC, FT4, BMP #### [facility] [address] [place] [address] [phone] Staff Rn: Tato Ibarra MD Hematocrit (Bld) [Volume fraction] 25.0 % Low 36.3-47.1 [facility] Comment on above: Performed By: #### P TT, PT #### [facility] [address] [place] [phone] Staff Rn: Tato Ibarra MD Hemoglobin (Bld) [Mass/Vol] 8.6 g/dL Low 11.9-15.1 [facility] Comment on above: Performed By: #### P TT, PT #### [address] [address] Staff Rn: Tato Ibarra MD Lipaseon 01-02-2024 Lipase [Catalytic activity/Vol] 18 U/L Normal 13-60 [facility] Comment on above: Performed By: #### O SMO, LD, MG, JESUS, TSHX, LIVP, B12FOL, LACTIC, FT4, BMP #### [facility] [address] [place] [phone] Staff Rn: Tato Ibarra MD MRSA, DNA, Nasalon MRSA, DNA, Nasal Negative Normal NEG [facility] Comment on above: Result Comment: NEGA TIVE: MRSA DNA not detected by nucleic acid amplification. Results should be used as an adjunct to nosocomial control efforts to identify patients needing enhanced precautions. The test is not intended to identify patients with staphylococcal infections. Results should not be used to guide or monitor treatment for MRSA infections. Performed By: #### O SMO, LD, MG, JESUS, TSHX, LIVP, B12FOL, LACTIC, FT4, BMP #### [facility] [address] [place] [address] [phone] Staff Rn: Tato Ibarra MD Magnesiumon 01-02-2024 Magnesium [Mass/Vol] 1.9 mg/dL Normal 1.6-2.6 [facility] Comment on above: Performed By: #### O SMO, LD, MG, JESUS, TSHX, LIVP, B12FOL, LACTIC, FT4, BMP #### [address] [phone] Staff Rn: Tato Ibarra MD Troponinon 01-02-2024 Troponin, High Sens <6 Normal 0-14 [facility] Comment on above: Result Comment: High Sensitivity Troponin values cannot be compared with other Troponin methodologies. Performed By: #### O SMO, LD, MG, JESUS, TSHX, LIVP, B12FOL, LACTIC, FT4, BMP #### [address] [phone] Staff Rn: Tato Ibarra MD APTTon 01-01-2024 aPTT Coag (Bld) [Time] 24.6 s Normal 23.0-36.5 [facility] Comment on above: Result Comment: IV Heparin Therapy Range: 66.0-92.0 sec Performed By: #### P TT, PT #### [address] [phone] Staff Rn: Tato Ibarra MD Basic Metab w/rfx MGon 12-31 Anion gap [Moles/Vol] 9 mmol/L Normal 9-16 [facility] Comment on above: Performed By: #### O SMO, LD, MG, JESUS, TSHX, LIVP, B12FOL, LACTIC, FT4, BMP #### [address] [phone] Staff Rn: Tato Ibarra MD Calcium [Mass/Vol] 8.5 mg/dL Low 8.6-10.4 [facility] Comment on above: Performed By: #### O SMO, LD, MG, JESUS, TSHX, LIVP, B12FOL, LACTIC, FT4, BMP #### [address] [address] Staff Rn: Tato Ibarra MD Chloride [Moles/Vol] 107 mmol/L Normal 98-107 [facility] Comment on above: Performed By: #### O SMO, LD, MG, JESUS, TSHX, LIVP, B12FOL, LACTIC, FT4, BMP #### [address] [phone] Staff Rn: Tato Ibarra MD CO2 [Moles/Vol] 23 mmol/L Normal 20-31 [facility] Comment on above: Performed By: #### O SMO, LD, MG, JESUS, TSHX, LIVP, B12FOL, LACTIC, FT4, BMP #### [address] [phone] Staff Rn: Tato Ibarra MD Creatinine [Mass/Vol] 0.3 mg/dL Low 0.50-0.90 [facility] Comment on above: Performed By: #### O SMO, LD, MG, JESUS, TSHX, LIVP, B12FOL, LACTIC, FT4, BMP #### [address] [phone] Staff Rn: Tato Ibarra MD GFR/1.73 sq M.predicted among non-blacks MDRD (S/P/Bld) [Vol rate/Area] mL/min/{1.73_m2} Normal >60 [facility] Comment on above: Result Comment: These results [...] affects renal tubular secretion. Performed By: #### O SMO, LD, MG, JESUS, TSHX, LIVP, B12FOL, LACTIC, FT4, BMP #### [address] [phone] Staff Rn: Tato Ibarra MD Glucose [Mass/Vol] 86 mg/dL Normal 74-99 [facility] Comment on above: Performed By: #### O SMO, LD, MG, JESUS, TSHX, LIVP, B12FOL, LACTIC, FT4, BMP #### [address] [phone] Staff Rn: Tato Ibarra MD Potassium [Moles/Vol] 3.3 mmol/L Low 3.7-5.3 [facility] Comment on above: Performed By: #### O SMO, LD, MG, JESUS, TSHX, LIVP, B12FOL, LACTIC, FT4, BMP #### [address] [phone] Staff Rn: Tato Ibarra MD Sodium [Moles/Vol] 139 mmol/L Normal 136-145 [facility] Comment on above: Performed By: #### O SMO, LD, MG, JESUS, TSHX, LIVP, B12FOL, LACTIC, FT4, BMP #### [place] [address] Staff Rn: Tato Ibarra MD Urea nitrogen [Mass/Vol] mg/dL Low 6-20 [facility] Comment on above: Performed By: #### O SMO, LD, MG, JESUS, TSHX, LIVP, B12FOL, LACTIC, FT4, BMP #### [address] [phone] Staff Rn: Tato Ibarra MD CBC with Diffon 01-01-2024 Abs. Basophil 0.00 k/uL Normal 0.00-0.20 [facility] Comment on above: Performed By: #### O SMO, LD, MG, JESUS, TSHX, LIVP, B12FOL, LACTIC, FT4, BMP #### [address] [phone] Staff Rn: Tato Ibarra MD Abs.Imm.Granulocyte 0.07 k/uL Normal 0.00-0.30 [facility] Comment on above: Performed By: #### O SMO, LD, MG, JESUS, TSHX, LIVP, B12FOL, LACTIC, FT4, BMP #### [address] [address] Staff Rn: Tato Ibarra MD Abs.Neutrophil (Seg) 4.93 k/uL Normal 1.50-8.10 [facility] Comment on above: Performed By: #### O SMO, LD, MG, JESUS, TSHX, LIVP, B12FOL, LACTIC, FT4, BMP #### [address] [address] Staff Rn: Tato Ibarra MD Basophils/100 WBC (Bld) 0 % Normal 0-2 [facility] Comment on above: Performed By: #### O SMO, LD, MG, JESUS, TSHX, LIVP, B12FOL, LACTIC, FT4, BMP #### [place] [address] Staff Rn: Tato Ibarra MD Eosinophils (Bld) [#/Vol] 0.00 10*3/uL Normal 0.00-0.44 [facility] Comment on above: Performed By: #### O SMO, LD, MG, JESUS, TSHX, LIVP, B12FOL, LACTIC, FT4, BMP #### [address] [address] Staff Rn: Tato Ibarra MD Eosinophils/100 WBC (Bld) 0 % Low 1-4 [facility] Comment on above: Performed By: #### O SMO, LD, MG, JESUS, TSHX, LIVP, B12FOL, LACTIC, FT4, BMP #### [place] [address] Staff Rn: Tato Ibarra MD Immature granulocytes/100 WBC (Bld) 1 % High 0 [facility] Comment on above: Performed By: #### O SMO, LD, MG, JESUS, TSHX, LIVP, B12FOL, LACTIC, FT4, BMP #### [facility] [address] [place] [phone] Staff Rn: Tato Ibarra MD Lymphocytes (Bld) [#/Vol] 1.11 10*3/uL Normal 1.10-3.70 [facility] Comment on above: Performed By: #### O SMO, LD, MG, JESUS, TSHX, LIVP, B12FOL, LACTIC, FT4, BMP #### [facility] [address] [place] [phone] Staff Rn: Tato Ibarra MD Lymphocytes/100 WBC (Bld) 17 % Low 24-43 [facility] Comment on above: Performed By: #### O SMO, LD, MG, JESUS, TSHX, LIVP, B12FOL, LACTIC, FT4, BMP #### [facility] [address] [place] [phone] Staff Rn: Tato Ibarra MD Monocytes (Bld) [#/Vol] 0.39 10*3/uL Normal 0.10-1.20 [facility] Comment on above: Performed By: #### O SMO, LD, MG, JESUS, TSHX, LIVP, B12FOL, LACTIC, FT4, BMP #### [facility] [address] [place] [phone] Staff Rn: Tato Ibarra MD Monocytes/100 WBC (Bld) 6 % Normal 3-12 [facility] Comment on above: Performed By: #### O SMO, LD, MG, JESUS, TSHX, LIVP, B12FOL, LACTIC, FT4, BMP #### [facility] [address] [place] [phone] Staff Rn: Tato Ibarra MD Morphology Ritesh (Bld) [Interp] Normal Normal [facility] Comment on above: Performed By: #### O SMO, LD, MG, JESUS, TSHX, LIVP, B12FOL, LACTIC, FT4, BMP #### [address] [address] Staff Rn: Tato Ibarra MD Neutrophil (Seg) 76 % High 36-[address] [facility] Comment on above: Performed By: #### O SMO, LD, MG, JESUS, TSHX, LIVP, B12FOL, LACTIC, FT4, BMP #### [address] [id number] Staff Rn: Tato Ibarra MD Erythrocyte distribution width (RBC) [Ratio] 22.1 % High 11.8-14.4 [facility] Comment on above: Performed By: #### O SMO, LD, MG, JESUS, TSHX, LIVP, B12FOL, LACTIC, FT4, BMP #### [address] [id number] Staff Rn: Tato Ibarra MD Hematocrit (Bld) [Volume fraction] 29.9 % Low 36.3-47.1 [facility] Comment on above: Result Comment: TEST CONFIRMED Performed By: #### O SMO, LD, MG, JESUS, TSHX, LIVP, B12FOL, LACTIC, FT4, BMP #### [address] [address] Staff Rn: Tato Ibarra MD Hemoglobin (Bld) [Mass/Vol] 10.2 g/dL Low 11.9-15.1 [facility] Comment on above: Result Comment: TEST CONFIRMED Performed By: #### O SMO, LD, MG, JESUS, TSHX, LIVP, B12FOL, LACTIC, FT4, BMP #### [address] [id number] Staff Rn: Tato Ibarra MD MCH (RBC) [Entitic mass] 31.6 pg Normal 25.2-33.5 [facility] Comment on above: Performed By: #### O SMO, LD, MG, JESUS, TSHX, LIVP, B12FOL, LACTIC, FT4, BMP #### [address] [id number] Staff Rn: Tato Ibarra MD MCHC (RBC) [Mass/Vol] 34.1 g/dL Normal 28.4-34.8 [facility] Comment on above: Performed By: #### O SMO, LD, MG, JESUS, TSHX, LIVP, B12FOL, LACTIC, FT4, BMP #### [address] [id number] Staff Rn: Tato Ibarra MD MCV (RBC) [Entitic vol] 92.6 fL Normal 82.6-102.9 [facility] Comment on above: Performed By: #### O SMO, LD, MG, JESUS, TSHX, LIVP, B12FOL, LACTIC, FT4, BMP #### [address] [address] Staff Rn: Tato Ibarra MD NRBC Automated 0.0 per 100 WBC Normal 0.0 [facility] Comment on above: Performed By: #### O SMO, LD, MG, JESUS, TSHX, LIVP, B12FOL, LACTIC, FT4, BMP #### [address] [address] Staff Rn: Tato Ibarra MD Platelet mean volume (Bld) [Entitic vol] 9.5 fL Normal 8.1-13.5 [facility] Comment on above: Performed By: #### O SMO, LD, MG, JESUS, TSHX, LIVP, B12FOL, LACTIC, FT4, BMP #### [address] [address] Staff Rn: Tato Ibarra MD Platelets (Bld) [#/Vol] 222 10*3/uL Normal 138-453 [facility] Comment on above: Performed By: #### O SMO, LD, MG, JESUS, TSHX, LIVP, B12FOL, LACTIC, FT4, BMP #### [address] [address] Staff Rn: Tato Ibarra MD RBC (Bld) [#/Vol] 3.23 10*6/uL Low 3.95-5.11 [facility] Comment on above: Performed By: #### O SMO, LD, MG, JESUS, TSHX, LIVP, B12FOL, LACTIC, FT4, BMP #### [address] [address] Staff Rn: Tato Ibarra MD WBC (Bld) [#/Vol] 6.5 10*3/uL Normal 3.5-11.3 [facility] Comment on above: Performed By: #### O SMO, LD, MG, JESUS, TSHX, LIVP, B12FOL, LACTIC, FT4, BMP #### [address] [address] Staff Rn: Tato Ibarra MD Abs. Basophil 0.03 k/uL Normal 0.00-0.20 [facility] Comment on above: Performed By: #### O SMO, LD, MG, JESUS, TSHX, LIVP, B12FOL, LACTIC, FT4, BMP #### [address] [address] Staff Rn: Tato Ibarra MD Abs.Imm.Granulocyte <0.03 Normal 0.00-0.30 [facility] Comment on above: Performed By: #### O SMO, LD, MG, JESUS, TSHX, LIVP, B12FOL, LACTIC, FT4, BMP #### [address] [address] Staff Rn: Tato Ibarra MD Abs.Neutrophil (Seg) 2.72 k/uL Normal 1.50-8.10 [facility] Comment on above: Performed By: #### O SMO, LD, MG, JESUS, TSHX, LIVP, B12FOL, LACTIC, FT4, BMP #### [address] [address] Staff Rn: Tato Ibarra MD Basophils/100 WBC (Bld) 1 % Normal 0-2 [facility] Comment on above: Performed By: #### O SMO, LD, MG, JESUS, TSHX, LIVP, B12FOL, LACTIC, FT4, BMP #### [place] [address] Staff Rn: Tato Ibarra MD Eosinophils (Bld) [#/Vol] 0.14 10*3/uL Normal 0.00-0.44 [facility] Comment on above: Performed By: #### O SMO, LD, MG, JESUS, TSHX, LIVP, B12FOL, LACTIC, FT4, BMP #### [place] [address] Staff Rn: Tato Ibarra MD Eosinophils/100 WBC (Bld) 3 % Normal 1-4 [facility] Comment on above: Performed By: #### O SMO, LD, MG, JESUS, TSHX, LIVP, B12FOL, LACTIC, FT4, BMP #### [place] [address] Staff Rn: Tato Ibarra MD Erythrocyte distribution width (RBC) [Ratio] 18.6 % High 11.8-14.4 [facility] Comment on above: Performed By: #### O SMO, LD, MG, JESUS, TSHX, LIVP, B12FOL, LACTIC, FT4, BMP #### [place] [address] Staff Rn: Tato Ibarra MD Hematocrit (Bld) [Volume fraction] 32.5 % Low 36.3-47.1 [facility] Comment on above: Performed By: #### O SMO, LD, MG, JESUS, TSHX, LIVP, B12FOL, LACTIC, FT4, BMP #### [address] [address] Staff Rn: Tato Ibarra MD Hemoglobin (Bld) [Mass/Vol] 10.6 g/dL Low 11.9-15.1 [facility] Comment on above: Performed By: #### O SMO, LD, MG, JESUS, TSHX, LIVP, B12FOL, LACTIC, FT4, BMP #### [address] [address] Staff Rn: Tato Ibarra MD Immature granulocytes/100 WBC (Bld) 0 % Normal 0 [facility] Comment on above: Performed By: #### O SMO, LD, MG, JESUS, TSHX, LIVP, B12FOL, LACTIC, FT4, BMP #### [address] [address] Staff Rn: Tato Ibarra MD Lymphocytes (Bld) [#/Vol] 1.44 10*3/uL Normal 1.10-3.70 [facility] Comment on above: Performed By: #### O SMO, LD, MG, JESUS, TSHX, LIVP, B12FOL, LACTIC, FT4, BMP #### [address] [address] Staff Rn: Tato Ibarra MD Lymphocytes/100 WBC (Bld) 29 % Normal 24-43 [facility] Comment on above: Performed By: #### O SMO, LD, MG, JESUS, TSHX, LIVP, B12FOL, LACTIC, FT4, BMP #### [place] [address] Staff Rn: Tato Ibarra MD MCH (RBC) [Entitic mass] 33.5 pg Normal 25.2-33.5 [facility] Comment on above: Performed By: #### O SMO, LD, MG, JESUS, TSHX, LIVP, B12FOL, LACTIC, FT4, BMP #### [address] [address] Staff Rn: Tato Ibarra MD MCHC (RBC) [Mass/Vol] 32.6 g/dL Normal 28.4-34.8 [facility] Comment on above: Performed By: #### O SMO, LD, MG, JESUS, TSHX, LIVP, B12FOL, LACTIC, FT4, BMP #### [address] [address] Staff Rn: Tato Ibarra MD MCV (RBC) [Entitic vol] 102.8 fL Normal 82.6-102.9 [facility] Comment on above: Performed By: #### O SMO, LD, MG, JESUS, TSHX, LIVP, B12FOL, LACTIC, FT4, BMP #### [address] [address] Staff Rn: Tato Ibarra MD Monocytes (Bld) [#/Vol] 0.54 10*3/uL Normal 0.10-1.20 [facility] Comment on above: Performed By: #### O SMO, LD, MG, JESUS, TSHX, LIVP, B12FOL, LACTIC, FT4, BMP #### [address] [address] Staff Rn: Tato Ibarra MD Monocytes/100 WBC (Bld) 11 % Normal 3-12 [facility] Comment on above: Performed By: #### O SMO, LD, MG, JESUS, TSHX, LIVP, B12FOL, LACTIC, FT4, BMP #### [address] [address] Staff Rn: Tato Ibarra MD Neutrophil (Seg) 56 % Normal 36-[address] [facility] Comment on above: Performed By: #### O SMO, LD, MG, JESUS, TSHX, LIVP, B12FOL, LACTIC, FT4, BMP #### [address] [address] Staff Rn: Tato Ibarra MD NRBC Automated 0.0 per 100 WBC Normal 0.0 [facility] Comment on above: Performed By: #### O SMO, LD, MG, JESUS, TSHX, LIVP, B12FOL, LACTIC, FT4, BMP #### [address] [address] Staff Rn: Tato Ibarra MD Platelet mean volume (Bld) [Entitic vol] 9.5 fL Normal 8.1-13.5 [facility] Comment on above: Performed By: #### O SMO, LD, MG, JESUS, TSHX, LIVP, B12FOL, LACTIC, FT4, BMP #### [address] [address] Staff Rn: Tato Ibarra MD Platelets (Bld) [#/Vol] 220 10*3/uL Normal 138-453 [facility] Comment on above: Performed By: #### O SMO, LD, MG, JESUS, TSHX, LIVP, B12FOL, LACTIC, FT4, BMP #### [address] [address] Staff Rn: Tato Ibarra MD RBC (Bld) [#/Vol] 3.16 10*6/uL Low 3.95-5.11 [facility] Comment on above: Performed By: #### O SMO, LD, MG, JESUS, TSHX, LIVP, B12FOL, LACTIC, FT4, BMP #### [address] [address] Staff Rn: Tato Ibarra MD RBC morphology finding Nom (Bld) ANISOCYTOSIS PRESENT Normal [facility] Comment on above: Performed By: #### O SMO, LD, MG, JESUS, TSHX, LIVP, B12FOL, LACTIC, FT4, BMP #### [facility] [address] [place] [address] [id number] Staff Rn: Tato Ibarra MD WBC (Bld) [#/Vol] 4.9 10*3/uL Normal 3.5-11.3 [facility] Comment on above: Performed By: #### O SMO, LD, MG, JESUS, TSHX, LIVP, B12FOL, LACTIC, FT4, BMP #### [facility] [employer] [address] [place] [address] [phone] Staff Rn: Tato Ibarra MD Calcium, Ionicon 01-01-2024 Calcium [Moles/Vol] 1.13 mmol/L Normal 1.13-1.33 [facility] Comment on above: Performed By: #### O SMO, LD, MG, JESUS, TSHX, LIVP, B12FOL, LACTIC, FT4, BMP #### [address] [id number] Staff Rn: Tato Ibarra MD Fecal Lactoferrinon 01-01-20 24 Fecal Lactoferrin POSITIVE for fecal lactoferrin, a marker for fecal leukocytes and an indicator Abnormal [facility] Comment on above: Result Comment: of i ntestinal inflammation. Performed By: #### P TT, PT #### [address] [address] Staff Rn: Tato Ibarra MD Glucose,Whole Bloodon 2023 Glucose [Mass/Vol] 111 mg/dL High 65-105 [facility] Hgb/Hcton 01-01-2024 Hematocrit (Bld) [Volume fraction] 24.2 % Low 36.3-47.1 [facility] Comment on above: Performed By: #### O SMO, LD, MG, JESUS, TSHX, LIVP, B12FOL, LACTIC, FT4, BMP #### [facility] [employer] [address] [place] [address] [phone] Staff Rn: Tato Ibarra MD Hemoglobin (Bld) [Mass/Vol] 7.7 g/dL Low 11.9-15.1 [facility] Comment on above: Performed By: #### O SMO, LD, MG, JESUS, TSHX, LIVP, B12FOL, LACTIC, FT4, BMP #### [facility] [address] [place] [address] Staff Rn: Tato Ibarra MD Hematocrit DUPLICATE ORDER Normal 36.3-47.1 [facility] Comment on above: Performed By: #### O SMO, LD, MG, JESUS, TSHX, LIVP, B12FOL, LACTIC, FT4, BMP #### [facility] [address] [place] [address] Staff Rn: Tato Ibarra MD Hemoglobin DUPLICATE ORDER Normal 11.9-15.1 [facility] Comment on above: Performed By: #### O SMO, LD, MG, JESUS, TSHX, LIVP, B12FOL, LACTIC, FT4, BMP #### [facility] [address] [place] [address] Staff Rn: Tato Ibarra MD Hematocrit (Bld) [Volume fraction] 31.8 % Low 36.3-47.1 [facility] Comment on above: Performed By: #### O SMO, LD, MG, JESUS, TSHX, LIVP, B12FOL, LACTIC, FT4, BMP #### [facility] [address] [place] [address] Staff Rn: Tato Ibarra MD Hemoglobin (Bld) [Mass/Vol] 10.3 g/dL Low 11.9-15.1 [facility] Comment on above: Performed By: #### O SMO, LD, MG, JESUS, TSHX, LIVP, B12FOL, LACTIC, FT4, BMP #### [facility] [address] [place] [address] Staff Rn: Tato Ibarra MD Lactate, Sepsison 01-01-2024 Lactic Acid,Sep Wbld 0.9 mmol/L Normal 0.5-1.9 [facility] Comment on above: Performed By: #### O SMO, LD, MG, JESUS, TSHX, LIVP, B12FOL, LACTIC, FT4, BMP #### [facility] [address] [place] [address] Staff Rn: Tato Ibarra MD Liver Profileon 01-01-2024 Albumin [Mass/Vol] 2.8 g/dL Low 3.5-5.2 [facility] Comment on above: Performed By: #### O SMO, LD, MG, JESUS, TSHX, LIVP, B12FOL, LACTIC, FT4, BMP #### [facility] [employer] [address] [place] [address] Staff Rn: Tato Ibarra MD Albumin/Glob Ratio 1.0 Normal 1.0-2.5 [facility] Comment on above: Performed By: #### O SMO, LD, MG, JESUS, TSHX, LIVP, B12FOL, LACTIC, FT4, BMP #### [facility] [address] [place] [address] Staff Rn: Tato Ibarra MD Alkaline Phos 161 U/L High 35-104 [facility] Comment on above: Performed By: #### O SMO, LD, MG, JESUS, TSHX, LIVP, B12FOL, LACTIC, FT4, BMP #### [facility] [address] [place] [address] Staff Rn: Tato Ibarra MD ALT [Catalytic activity/Vol] 10 U/L Normal 10-35 [facility] Comment on above: Performed By: #### O SMO, LD, MG, JESUS, TSHX, LIVP, B12FOL, LACTIC, FT4, BMP #### [facility] [address] [place] [address] Staff Rn: Tato Ibarra MD AST [Catalytic activity/Vol] 40 U/L High 10-35 [facility] Comment on above: Performed By: #### O SMO, LD, MG, JESUS, TSHX, LIVP, B12FOL, LACTIC, FT4, BMP #### [address] [address] Staff Rn: Tato Ibarra MD Bilirubin [Mass/Vol] 0.3 mg/dL Normal 0.00-1.20 [facility] Comment on above: Performed By: #### O SMO, LD, MG, JESUS, TSHX, LIVP, B12FOL, LACTIC, FT4, BMP #### [address] [address] Staff Rn: Tato Ibarra MD Bilirubin, Indirect Can not be calculated Normal 0.0-1 .0 [facility] Comment on above: Performed By: #### O SMO, LD, MG, JESUS, TSHX, LIVP, B12FOL, LACTIC, FT4, BMP #### [address] [address] Staff Rn: Tato Ibarra MD Bilirubin.indirect [Mass/Vol] mg/dL Normal 0.0-0.2 [facility] Comment on above: Performed By: #### O SMO, LD, MG, JESUS, TSHX, LIVP, B12FOL, LACTIC, FT4, BMP #### [address] [address] Staff Rn: Tato Ibarra MD Globulin (S) [Mass/Vol] 2.2 g/dL Normal [facility] Comment on above: Performed By: #### O SMO, LD, MG, JESUS, TSHX, LIVP, B12FOL, LACTIC, FT4, BMP #### [address] [address] Staff Rn: Tato Ibarra MD Protein [Mass/Vol] 5.0 g/dL Low 6.6-8.7 [facility] Comment on above: Performed By: #### O SMO, LD, MG, JESUS, TSHX, LIVP, B12FOL, LACTIC, FT4, BMP #### [facility] [address] [place] [address] Staff Rn: Tato Ibarra MD MRSA, DNA, Nasalon Specimen Description .NASAL SWAB Normal [facility] Comment on above: Performed By: #### O SMO, LD, MG, JESUS, TSHX, LIVP, B12FOL, LACTIC, FT4, BMP #### [facility] [address] [place] [address] Staff Rn: Tato Ibarra MD Magnesiumon 01-01-2024 Magnesium [Mass/Vol] 2.0 mg/dL Normal 1.6-2.6 [facility] Comment on above: Performed By: #### O SMO, LD, MG, JESUS, TSHX, LIVP, B12FOL, LACTIC, FT4, BMP #### [facility] [employer] [address] [place] [address] Staff Rn: Tato Ibarra MD PTon 01-01-2024 INR Coag (PPP) [Relative time] 0.9 {INR} Normal [facility] Comment on above: Result Comment: Therapeutic Range: Moderate Anticoagulant Intensity: INR = 2.0-3.0 High Anticoagulant Intensity: INR = 2.5-3.5 Performed By: #### P TT, PT #### [address] [address] Staff Rn: Tato Ibarra MD PT Coag (PPP) [Time] 12.3 s Normal 11.7-14.9 [facility] Comment on above: Performed By: #### P TT, PT #### [facility] [employer] [address] [place] [address] Staff Rn: Tato Ibarra MD Type + Screenon 01-01-2024 Type + Screen Sample Expiration 01/03/2024,2359 Arm Band Number [id number] ABO/Rh(D) O NEGATIVE Antibody Screen NEGATIVE Unit Number [id number] Blood Component Type Leukocyte Reduced Red Cell Unit Division 00 Status of Unit TRANSFUSED Transfusion Status OK TO TRANSFUSE Crossmatch Result COMPATIBLE Unit Number [id number] Blood Component Type Leukocyte Reduced Red Cell Unit Division 00 Status of Unit TRANSFUSED Transfusion Status OK TO TRANSFUSE Crossmatch Result COMPATIBLE Normal [facility] Comment on above: Performed By: #### P TT, PT #### [address] [address] Staff Rn: Tato Ibarra MD APTTon 12-31-2023 aPTT Coag (Bld) [Time] 27.6 s Normal 23.0-36.5 [facility] Comment on above: Result Comment: IV Heparin Therapy Range: 66.0-92.0 sec Performed By: #### O SMO, LD, MG, JESUS, TSHX, LIVP, B12FOL, LACTIC, FT4, BMP #### [address] [phone] Staff Rn: Tato Ibarra MD aPTT Coag (Bld) [Time] 27.8 s Normal 23.0-36.5 [facility] Comment on above: Result Comment: IV Heparin Therapy Range: 66.0-92.0 sec Performed By: #### O SMO, LD, MG, JESUS, TSHX, LIVP, B12FOL, LACTIC, FT4, BMP #### [address] [id number] Staff Rn: Tato Ibarra MD B12/Folate Panelon Cobalamin (Vitamin B12) [Mass/Vol] 271 pg/mL Normal 232-1245 [facility] Comment on above: Performed By: #### P TT, PT #### [address] [phone] Staff Rn: Tato Ibarra MD Folic Acid 5.4 ng/mL Normal 4.8-24.2 [facility] Comment on above: Performed By: #### P TT, PT #### [address] [address] Staff Rn: Tato Ibarra MD Basic Metabolic Profon 12-30 Anion gap [Moles/Vol] 10 mmol/L Normal 9-16 [facility] Comment on above: Performed By: #### O SMO, LD, MG, JESUS, TSHX, LIVP, B12FOL, LACTIC, FT4, BMP #### [place] [address] Staff Rn: Tato Ibarra MD Calcium [Mass/Vol] 8.5 mg/dL Low 8.6-10.4 [facility] Comment on above: Performed By: #### O SMO, LD, MG, JESUS, TSHX, LIVP, B12FOL, LACTIC, FT4, BMP #### [place] [address] Staff Rn: Tato Ibarra MD Chloride [Moles/Vol] 105 mmol/L Normal 98-107 [facility] Comment on above: Performed By: #### O SMO, LD, MG, JESUS, TSHX, LIVP, B12FOL, LACTIC, FT4, BMP #### [address] [address] Staff Rn: Tato Ibarra MD CO2 [Moles/Vol] 20 mmol/L Normal 20-31 [facility] Comment on above: Performed By: #### O SMO, LD, MG, JESUS, TSHX, LIVP, B12FOL, LACTIC, FT4, BMP #### [place] [address] Staff Rn: Tato Ibarra MD Creatinine [Mass/Vol] 0.4 mg/dL Low 0.50-0.90 [facility] Comment on above: Performed By: #### O SMO, LD, MG, JESUS, TSHX, LIVP, B12FOL, LACTIC, FT4, BMP #### [address] [phone] Staff Rn: Tato Ibarra MD GFR/1.73 sq M.predicted among non-blacks MDRD (S/P/Bld) [Vol rate/Area] mL/min/{1.73_m2} Normal >60 [facility] Comment on above: Result Comment: These results [...] affects renal tubular secretion. Performed By: #### O SMO, LD, MG, JESUS, TSHX, LIVP, B12FOL, LACTIC, FT4, BMP #### [address] [phone] Staff Rn: Tato Ibarra MD Glucose [Mass/Vol] 89 mg/dL Normal 74-99 [facility] Comment on above: Performed By: #### O SMO, LD, MG, JESUS, TSHX, LIVP, B12FOL, LACTIC, FT4, BMP #### [address] [phone] Staff Rn: Tato Ibarra MD Potassium [Moles/Vol] 3.7 mmol/L Normal 3.7-5.3 [facility] Comment on above: Performed By: #### O SMO, LD, MG, EJSUS, TSHX, LIVP, B12FOL, LACTIC, FT4, BMP #### [address] [phone] Staff Rn: Tato Ibarra MD Sodium [Moles/Vol] 135 mmol/L Low 136-145 [facility] Comment on above: Performed By: #### O SMO, LD, MG, JESUS, TSHX, LIVP, B12FOL, LACTIC, FT4, BMP #### [address] [address] Staff Rn: Tato Ibarra MD Urea nitrogen [Mass/Vol] 2 mg/dL Low -20 [facility] Comment on above: Performed By: #### O SMO, LD, MG, JESUS, TSHX, LIVP, B12FOL, LACTIC, FT4, BMP #### [address] [address] Staff Rn: Tato Ibarra MD C diff Ag + Toxinon 12-31-19 24 C diff Ag + Toxin Negative Normal NEG [facility] Comment on above: Result Comment: No C . difficile antigen and Toxin Detected. Performed By: #### P TT, PT #### [address] [address] Staff Rn: Tato Ibarra MD Specimen Description .FECES Normal [facility] Comment on above: Performed By: #### P TT, PT #### [address] [address] Staff Rn: Tato Ibarra MD CBC with Diffon 12-31-2023 Abs. Basophil 0.03 k/uL Normal 0.00-0.20 [facility] Comment on above: Performed By: #### O SMO, LD, MG, JESUS, TSHX, LIVP, B12FOL, LACTIC, FT4, BMP #### [address] [address] Staff Rn: Tato Ibarra MD Abs.Imm.Granulocyte 0.03 k/uL Normal 0.00-0.30 [facility] Comment on above: Performed By: #### O SMO, LD, MG, JESUS, TSHX, LIVP, B12FOL, LACTIC, FT4, BMP #### [address] [address] Staff Rn: Tato Ibarra MD Abs.Neutrophil (Seg) 3.14 k/uL Normal 1.50-8.10 [facility] Comment on above: Performed By: #### O SMO, LD, MG, JESUS, TSHX, LIVP, B12FOL, LACTIC, FT4, BMP #### [facility] [address] [place] [address] Staff Rn: Tato Ibarra MD Basophils/100 WBC (Bld) 1 % Normal 0-2 [facility] Comment on above: Performed By: #### O SMO, LD, MG, JESUS, TSHX, LIVP, B12FOL, LACTIC, FT4, BMP #### [address] [address] Staff Rn: Tato Ibarra MD Eosinophils (Bld) [#/Vol] 0.12 10*3/uL Normal 0.00-0.44 [facility] Comment on above: Performed By: #### O SMO, LD, MG, JESUS, TSHX, LIVP, B12FOL, LACTIC, FT4, BMP #### [place] [address] Staff Rn: Tato Ibarra MD Eosinophils/100 WBC (Bld) 2 % Normal 1-4 [facility] Comment on above: Performed By: #### O SMO, LD, MG, JESUS, TSHX, LIVP, B12FOL, LACTIC, FT4, BMP #### [facility] [address] [place] [address] Staff Rn: Tato Ibarra MD Erythrocyte distribution width (RBC) [Ratio] 18.8 % High 11.8-14.4 [facility] Comment on above: Performed By: #### O SMO, LD, MG, JESUS, TSHX, LIVP, B12FOL, LACTIC, FT4, BMP #### [address] [address] Staff Rn: Tato Ibarra MD Hematocrit (Bld) [Volume fraction] 33.2 % Low 36.3-47.1 [facility] Comment on above: Performed By: #### O SMO, LD, MG, JESUS, TSHX, LIVP, B12FOL, LACTIC, FT4, BMP #### [address] [address] Staff Rn: Tato Ibarra MD Hemoglobin (Bld) [Mass/Vol] 10.9 g/dL Low 11.9-15.1 [facility] Comment on above: Performed By: #### O SMO, LD, MG, JESUS, TSHX, LIVP, B12FOL, LACTIC, FT4, BMP #### [address] [address] Staff Rn: Tato Ibarra MD Immature granulocytes/100 WBC (Bld) 1 % High 0 [facility] Comment on above: Performed By: #### O SMO, LD, MG, JESUS, TSHX, LIVP, B12FOL, LACTIC, FT4, BMP #### [address] [address] Staff Rn: Tato Ibarra MD Lymphocytes (Bld) [#/Vol] 1.41 10*3/uL Normal 1.10-3.70 [facility] Comment on above: Performed By: #### O SMO, LD, MG, JESUS, TSHX, LIVP, B12FOL, LACTIC, FT4, BMP #### [facility] [address] [place] [address] Staff Rn: Tato Ibarra MD Lymphocytes/100 WBC (Bld) 27 % Normal 24-43 [facility] Comment on above: Performed By: #### O SMO, LD, MG, JESUS, TSHX, LIVP, B12FOL, LACTIC, FT4, BMP #### [facility] [address] [place] [address] Staff Rn: Tato Ibarra MD MCH (RBC) [Entitic mass] 34.1 pg High 25.2-33.5 [facility] Comment on above: Performed By: #### O SMO, LD, MG, JESUS, TSHX, LIVP, B12FOL, LACTIC, FT4, BMP #### [facility] [address] [place] [address] Staff Rn: Tato Ibarra MD MCHC (RBC) [Mass/Vol] 32.8 g/dL Normal 28.4-34.8 [facility] Comment on above: Performed By: #### O SMO, LD, MG, JESUS, TSHX, LIVP, B12FOL, LACTIC, FT4, BMP #### [address] [address] Staff Rn: Tato Ibarra MD MCV (RBC) [Entitic vol] 103.8 fL High 82.6-102.9 [facility] Comment on above: Performed By: #### O SMO, LD, MG, JESUS, TSHX, LIVP, B12FOL, LACTIC, FT4, BMP #### [address] [address] Staff Rn: Tato Ibarra MD Monocytes (Bld) [#/Vol] 0.44 10*3/uL Normal 0.10-1.20 [facility] Comment on above: Performed By: #### O SMO, LD, MG, JESUS, TSHX, LIVP, B12FOL, LACTIC, FT4, BMP #### [facility] [address] [place] [address] Staff Rn: Tato Ibarra MD Monocytes/100 WBC (Bld) 9 % Normal 3-12 [facility] Comment on above: Performed By: #### O SMO, LD, MG, JESUS, TSHX, LIVP, B12FOL, LACTIC, FT4, BMP #### [facility] [address] [place] [address] Staff Rn: Tato Ibarra MD Neutrophil (Seg) 60 % Normal 36-[address] [facility] Comment on above: Performed By: #### O SMO, LD, MG, JESUS, TSHX, LIVP, B12FOL, LACTIC, FT4, BMP #### [address] [address] Staff Rn: Tato Ibarra MD NRBC Automated 0.0 per 100 WBC Normal 0.0 [facility] Comment on above: Performed By: #### O SMO, LD, MG, JESUS, TSHX, LIVP, B12FOL, LACTIC, FT4, BMP #### [address] [address] Staff Rn: Tato Ibarra MD Platelet mean volume (Bld) [Entitic vol] 9.2 fL Normal 8.1-13.5 [facility] Comment on above: Performed By: #### O SMO, LD, MG, JESUS, TSHX, LIVP, B12FOL, LACTIC, FT4, BMP #### [address] [address] Staff Rn: Tato Ibarra MD Platelets (Bld) [#/Vol] 197 10*3/uL Normal 138-453 [facility] Comment on above: Performed By: #### O SMO, LD, MG, JESUS, TSHX, LIVP, B12FOL, LACTIC, FT4, BMP #### [facility] [address] [place] [id number] Staff Rn: Tato Ibarra MD RBC (Bld) [#/Vol] 3.20 10*6/uL Low 3.95-5.11 [facility] Comment on above: Performed By: #### O SMO, LD, MG, JESUS, TSHX, LIVP, B12FOL, LACTIC, FT4, BMP #### [facility] [address] [place] [id number] Staff Rn: Tato Ibarra MD RBC morphology finding Nom (Bld) ANISOCYTOSIS PRESENT Normal [facility] Comment on above: Result Comment: MACR OCYTOSIS PRESENT Performed By: #### O SMO, LD, MG, JESUS, TSHX, LIVP, B12FOL, LACTIC, FT4, BMP #### [facility] [address] [place] [address] [phone] Staff Rn: Tato Ibarra MD WBC (Bld) [#/Vol] 5.2 10*3/uL Normal 3.5-11.3 [facility] Comment on above: Performed By: #### O SMO, LD, MG, JESUS, TSHX, LIVP, B12FOL, LACTIC, FT4, BMP #### [facility] [address] [place] [address] [phone] Staff Rn: Tato Ibarra MD Calcium, [employer] 12-31-2023 Calcium [Moles/Vol] 1.23 mmol/L Normal 1.13-1.33 [facility] Comment on above: Performed By: #### O SMO, LD, MG, JESUS, TSHX, LIVP, B12FOL, LACTIC, FT4, BMP #### [facility] [address] [place] [address] [phone] Staff Rn: Tato Ibarra MD Creatinine,Random Uron 12-30 Creatinine [Mass/Vol] 27.0 mg/dL Low 28.0-217.0 [facility] Comment on above: Performed By: #### O SMO, LD, MG, JESUS, TSHX, LIVP, B12FOL, LACTIC, FT4, BMP #### [facility] [address] [place] [address] [id number] Staff Rn: Tato Ibarra MD Hgb/[place] 12-31-2023 Hematocrit (Bld) [Volume fraction] 34.6 % Low 36.3-47.1 [facility] Comment on above: Performed By: #### O SMO, LD, MG, JESUS, TSHX, LIVP, B12FOL, LACTIC, FT4, BMP #### [facility] [address] [place] [id number] Staff Rn: Tato Ibarra MD Hemoglobin (Bld) [Mass/Vol] 11.3 g/dL Low 11.9-15.1 [facility] Comment on above: Performed By: #### O SMO, LD, MG, JESUS, TSHX, LIVP, B12FOL, LACTIC, FT4, BMP #### [facility] [address] [place] [address] 35980 Staff Rn: Tato Ibarra MD Hematocrit (Bld) [Volume fraction] 33.1 % Low 36.3-47.1 [facility] Comment on above: Performed By: #### O SMO, LD, MG, JESUS, TSHX, LIVP, B12FOL, LACTIC, FT4, BMP #### [facility] [address] [place] [address] 31735 Staff Rn: Tato Ibarra MD Hemoglobin (Bld) [Mass/Vol] 10.8 g/dL Low 11.9-15.1 [facility] Comment on above: Performed By: #### O SMO, LD, MG, JESUS, TSHX, LIVP, B12FOL, LACTIC, FT4, BMP #### [facility] [address] [place] [phone] Staff Rn: Tato Ibarra MD Hematocrit (Bld) [Volume fraction] 33.1 % Low 36.3-47.1 [facility] Comment on above: Performed By: #### P TT, PT #### [facility] [address] [place] [address]47 Staff Rn: Tato Ibarra MD Hemoglobin (Bld) [Mass/Vol] 11.2 g/dL Low 11.9-15.1 [facility] Comment on above: Performed By: #### P TT, PT #### [facility] [address] [place] [address] 39834 Staff Rn: Tato Ibarra MD Hematocrit (Bld) [Volume fraction] 34.0 % Low 36.3-47.1 [facility] Comment on above: Performed By: #### P TT, PT #### [address] [address] Staff Rn: Tato Ibarra MD Hemoglobin (Bld) [Mass/Vol] 11.1 g/dL Low 11.9-15.1 [facility] Comment on above: Performed By: #### P TT, PT #### [address] [address] Staff Rn: Tato Ibarra MD Iron Binding Cap.on 12-31-19 24 % Fe Saturation 11 % Low 20-55 [facility] Comment on above: Performed By: #### O SMO, LD, MG, JESUS, TSHX, LIVP, B12FOL, LACTIC, FT4, BMP #### [address] [address] Staff Rn: Tato Ibarra MD Iron [Mass/Vol] 24 ug/dL Low 37-145 [facility] Comment on above: Performed By: #### O SMO, LD, MG, JESUS, TSHX, LIVP, B12FOL, LACTIC, FT4, BMP #### [address] [address] Staff Rn: Tato Ibarra MD Total Fe Binding Cap 213 ug/dL Low 250-450 [facility] Comment on above: Performed By: #### O SMO, LD, MG, JESUS, TSHX, LIVP, B12FOL, LACTIC, FT4, BMP #### [address] [address] Staff Rn: Tato Ibarra MD Unbound Fe Bind Cap 189 ug/dL Normal 112-347 [facility] Comment on above: Performed By: #### O SMO, LD, MG, JESUS, TSHX, LIVP, B12FOL, LACTIC, FT4, BMP #### [address] [phone] Staff Rn: Tato Ibarra MD Lactate Dehydrogenaseon LDH [Catalytic activity/Vol] 168 U/L Normal 135-214 [facility] Comment on above: Performed By: #### O SMO, LD, MG, JESUS, TSHX, LIVP, B12FOL, LACTIC, FT4, BMP #### [address] [phone] Staff Rn: Tato Ibarra MD Lactic Acidon 12-31-2023 Lactic Acid,Whole Bl 1.0 mmol/L Normal 0.7-2.1 [facility] Comment on above: Performed By: #### O SMO, LD, MG, JESUS, TSHX, LIVP, B12FOL, LACTIC, FT4, BMP #### [facility] [address] [place] [address] 31695 Staff Rn: Tato Ibarra MD Liver Profileon 12-31-2023 Albumin [Mass/Vol] 3.0 g/dL Low 3.5-5.2 [facility] Comment on above: Performed By: #### O SMO, LD, MG, JESUS, TSHX, LIVP, B12FOL, LACTIC, FT4, BMP #### [address] [address] Staff Rn: Tato Ibarra MD Albumin/Glob Ratio 1.0 Normal 1.0-2.5 [facility] Comment on above: Performed By: #### O SMO, LD, MG, JESUS, TSHX, LIVP, B12FOL, LACTIC, FT4, BMP #### [facility] [employer] [address] [place] [address] Staff Rn: Tato Ibarra MD Alkaline Phos 174 U/L High 35-104 [facility] Comment on above: Performed By: #### O SMO, LD, MG, JESUS, TSHX, LIVP, B12FOL, LACTIC, FT4, BMP #### [address] [address] Staff Rn: Tato Ibarra MD ALT [Catalytic activity/Vol] 13 U/L Normal [address] [place] [address] Comment on above: Performed By: #### O SMO, LD, MG, JESUS, TSHX, LIVP, B12FOL, LACTIC, FT4, BMP #### [address] [address] Staff Rn: Tato Ibarra MD AST [Catalytic activity/Vol] 47 U/L High [address] [place] [address] Comment on above: Performed By: #### O SMO, LD, MG, JESUS, TSHX, LIVP, B12FOL, LACTIC, FT4, BMP #### [address] [address] Staff Rn: Tato Ibarra MD Bilirubin [Mass/Vol] 0.4 mg/dL Normal 0.00-1.20 [facility] Comment on above: Performed By: #### O SMO, LD, MG, JESUS, TSHX, LIVP, B12FOL, LACTIC, FT4, BMP #### [address] [address] Staff Rn: Tato Ibarra MD Bilirubin, Indirect 0.2 mg/dL Normal 0.0-1.0 [facility] Comment on above: Performed By: #### O SMO, LD, MG, JESUS, TSHX, LIVP, B12FOL, LACTIC, FT4, BMP #### [address] [address] Staff Rn: Tato Ibarra MD Bilirubin.indirect [Mass/Vol] 0.2 mg/dL Normal 0.0-0.2 [facility] Comment on above: Performed By: #### O SMO, LD, MG, JESUS, TSHX, LIVP, B12FOL, LACTIC, FT4, BMP #### [address] [id number] Staff Rn: Tato Ibarra MD Globulin (S) [Mass/Vol] 2.2 g/dL Normal [facility] Comment on above: Performed By: #### O SMO, LD, MG, JESUS, TSHX, LIVP, B12FOL, LACTIC, FT4, BMP #### [address] [id number] Staff Rn: Tato Ibarra MD Protein [Mass/Vol] 5.2 g/dL Low 6.6-8.7 [facility] Comment on above: Performed By: #### O SMO, LD, MG, JESUS, TSHX, LIVP, B12FOL, LACTIC, FT4, BMP #### [place] [address] Staff Rn: Tato Ibarra MD Magnesiumon 8 Magnesium [Mass/Vol] 1.9 mg/dL Normal 1.6-2.6 [facility] Comment on above: Performed By: #### O SMO, LD, MG, JESUS, TSHX, LIVP, B12FOL, LACTIC, FT4, BMP #### [address] [phone] Staff Rn: Tato Ibarra MD Osmolalityon 12-31-2023 Osmolality [Osmolality] 278 mosm/kg Normal 275-295 [facility] Comment on above: Performed By: #### O SMO, LD, MG, JESUS, TSHX, LIVP, B12FOL, LACTIC, FT4, BMP #### [address] [phone] Staff Rn: Tato Ibarra MD PTon 12-31-2023 INR Coag (PPP) [Relative time] 0.9 {INR} Normal [facility] Comment on above: Result Comment: Therapeutic Range: Moderate Anticoagulant Intensity: INR = 2.0-3.0 High Anticoagulant Intensity: INR = 2.5-3.5 Performed By: #### O SMO, LD, MG, JESUS, TSHX, LIVP, B12FOL, LACTIC, FT4, BMP #### [facility] [address] [place] [address] [phone] Staff Rn: Tato Ibarra MD PT Coag (PPP) [Time] 11.9 s Normal 11.7-14.9 [facility] Comment on above: Performed By: #### O SMO, LD, MG, JESUS, TSHX, LIVP, B12FOL, LACTIC, FT4, BMP #### [facility] [employer] [address] [place], [place] [phone] Staff Rn: Tato Ibarra MD INR Coag (PPP) [Relative time] 0.9 {INR} Normal [facility] Comment on above: Result Comment: Therapeutic Range: Moderate Anticoagulant Intensity: INR = 2.0-3.0 High Anticoagulant Intensity: INR = 2.5-3.5 Performed By: #### O SMO, LD, MG, JESUS, TSHX, LIVP, B12FOL, LACTIC, FT4, BMP #### [facility] [address] [place], [place] [phone] Staff Rn: Tato Ibarra MD PT Coag (PPP) [Time] 11.8 s Normal 11.7-14.9 [facility] Comment on above: Performed By: #### O SMO, LD, MG, JESUS, TSHX, LIVP, B12FOL, LACTIC, FT4, BMP #### [facility] [address] [place], [place] [phone] Staff Rn: Tato Ibarra MD Phosphorus, Inorg.on 024 Phosphorus, Inorg. 3.7 mg/dL Normal 2.5-4.5 [facility] Comment on above: Performed By: #### O SMO, LD, MG, JESUS, TSHX, LIVP, B12FOL, LACTIC, FT4, BMP #### [address] [address] Staff Rn: Tato Ibarra MD Sodium, Random Uron 12-31-19 24 Sodium (U) [Moles/Vol] 121 mmol/L Normal [facility] Comment on above: Result Comment: No n ormal range established. Performed By: #### O SMO, LD, MG, JESUS, TSHX, LIVP, B12FOL, LACTIC, FT4, BMP #### [address] [address] Staff Rn: Tato Ibarra MD Stool PCR Batteryon 12-31-19 24 Campylobacter sp PCR NEGATIVE: No Campyl obacter spp. (jejuni or coli) DNA Detected Normal [facility] Comment on above: Performed By: #### P TT, PT #### [address] [address] Staff Rn: Tato Ibarra MD E coli enterotox PCR NEGATIVE: No Enterotoxigenic E. coli (ETEC) Heat-labile and heat-stable (LT/ST) Normal EECNE[facility] Comment on above: Result Comment: DNA Detected Performed By: #### P TT, PT #### [address] [address] Staff Rn: Tato Ibarra MD Plesiomonas sp PCR Negative Normal [facility] Comment on above: Performed By: #### P TT, PT #### [address] [address] Staff Rn: Tato Ibarra MD Salmonella sp PCR Negative Normal SALNEG [facility] Comment on above: Performed By: #### P TT, PT #### [address] [address] Staff Rn: Tato Ibarra MD Shigatoxin gene PCR Negative Normal STXNEG [facility] Comment on above: Performed By: #### P TT, PT #### [address] [address] Staff Rn: Tato Ibarra MD Shigella sp PCR Negative Normal [facility] Comment on above: Performed By: #### P TT, PT #### [address] [address] Staff Rn: Tato Ibarra MD Vibrio sp PCR NEGATIVE: No Vibrio (V. vulnificus, V, parahaemolyticus and V. cholerae) DNA Normal VIBNEG [facility] Comment on above: Result Comment: Dete cted Performed By: #### P TT, PT #### [address] [address] Staff Rn: Tato Ibarra MD Yersinia gene PCR Negative Normal YERNEG [facility] Comment on above: Performed By: #### P TT, PT #### [address] [address] Staff Rn: Tato Ibarra MD TSH w/reflex to FT4on 2023 Thyroid Stim. Horm. 6.81 uIU/mL High 0.27-4.20 [facility] Comment on above: Performed By: #### O SMO, LD, MG, JESUS, TSHX, LIVP, B12FOL, LACTIC, FT4, BMP #### [address] [address] Staff Rn: Tato Ibarra MD Thyroxine, Freeon 12-31-2023 Thyroxine, Free 0.8 ng/dL Low 0.92-1.68 [facility] Comment on above: Performed By: #### P TT, PT #### [address] [address] Staff Rn: Tato Ibarra MD UA w/Reflex Cultureon 2023 Bilirubin, SemiQt,Ur Negative Normal NEG [facility] Comment on above: Performed By: #### O SMO, LD, MG, JESUS, TSHX, LIVP, B12FOL, LACTIC, FT4, BMP #### [address] [address] Staff Rn: Tato Ibarra MD Blood, Urine Negative Normal NEG [facility] Comment on above: Performed By: #### O SMO, LD, MG, JESUS, TSHX, LIVP, B12FOL, LACTIC, FT4, BMP #### [facility] [address] [place] [phone] Staff Rn: Tato Ibarra MD Clarity (U) Clear Normal CLEAR [facility] Comment on above: Performed By: #### O SMO, LD, MG, JESUS, TSHX, LIVP, B12FOL, LACTIC, FT4, BMP #### [address] [address] Staff Rn: Tato Ibarra MD Color (U) Yellow Normal YEL [facility] Comment on above: Performed By: #### O SMO, LD, MG, JESUS, TSHX, LIVP, B12FOL, LACTIC, FT4, BMP #### [facility] [address] [place] [phone] Staff Rn: Tato Ibarra MD Comment Microscopic exam not performed based on chemical results unless requested in Normal [facility] Comment on above: Result Comment: orig inal order. Performed By: #### O SMO, LD, MG, JESUS, TSHX, LIVP, B12FOL, LACTIC, FT4, BMP #### [facility] [address] [place] [phone] Staff Rn: Tato Ibarra MD Glucose Ql (U) Negative Normal NEG [facility] Comment on above: Performed By: #### O SMO, LD, MG, JESUS, TSHX, LIVP, B12FOL, LACTIC, FT4, BMP #### [facility] [address] [place], [place] [address], [place] [address] Staff Rn: Tato Ibarra MD Ketones Ql (U) Negative Normal NEG [facility] Comment on above: Performed By: #### O SMO, LD, MG, JESUS, TSHX, LIVP, B12FOL, LACTIC, FT4, BMP #### [address] [address] Staff Rn: Tato Ibarra MD Leukocyte esterase Test strip Ql (U) Negative Normal NEG [facility] Comment on above: Performed By: #### O SMO, LD, MG, JESUS, TSHX, LIVP, B12FOL, LACTIC, FT4, BMP #### [address] [address] Staff Rn: Tato Ibarra MD Nitrite,Ur Negative Normal NEG [facility] Comment on above: Performed By: #### O SMO, LD, MG, JESUS, TSHX, LIVP, B12FOL, LACTIC, FT4, BMP #### [address] [address] Staff Rn: Tato Ibarra MD PH,Ur 5.5 Normal 5.0-8.0 [facility] Comment on above: Performed By: #### O SMO, LD, MG, JESUS, TSHX, LIVP, B12FOL, LACTIC, FT4, BMP #### [address] [address] Staff Rn: Tato Ibarra MD Protein Ql (U) Negative Normal NEG [facility] Comment on above: Performed By: #### O SMO, LD, MG, JESUS, TSHX, LIVP, B12FOL, LACTIC, FT4, BMP #### [address] [address] Staff Rn: Tato Ibarra MD Spec. [place],Ur 1.007 Normal 1.005-1.03 0 [facility] Comment on above: Performed By: #### O SMO, LD, MG, JESUS, TSHX, LIVP, B12FOL, LACTIC, FT4, BMP #### [facility] [address] [place], [place] [phone] Staff Rn: Tato Ibarra MD Urobilinogen,Ur Normal Normal 0.0-1.0 [facility] Comment on above: Performed By: #### O SMO, LD, MG, JESUS, TSHX, LIVP, B12FOL, LACTIC, FT4, BMP #### [facility] [address], [place] [phone] Staff Rn: Tato Ibarra MD Basophils Auto (Bld) [#/Vol] on 12-30-2023 Basophils (Bld) [#/Vol] 0.0 10 3/uL 0.0-0.1 [facility] Basophils/100 WBC Auto (Bld) on 12-30-2023 Basophils/100 WBC (Bld) 0.7 % 0.2-2.0 [facility] Eosinophils/100 WBC Auto (Bl d)on 12-30-2023 Eosinophils/100 WBC (Bld) 2.7 % 0.9-7.0 [facility] Erythrocyte distribution wid th Auto (RBC) [Ratio]on 12-30-2023 Erythrocyte distribution width (RBC) [Ratio] 15.0 % 11.0-15.0 [facility] Estimated glomerular filtrat ion rate (GFR) non- Americanon 12-30-2023 GFR/1.73 sq M.predicted among non-blacks MDRD (S/P/Bld) [Vol rate/Area] mL/min/{1.73_m2} >=60 [facility] Globulin Calc (S) [Mass/Vol] on 12-30-2023 Globulin (S) [Mass/Vol] 2.6 g/dL [facility] Hematocrit Auto (Bld) [Volum e fraction]on 12-30-2023 Hematocrit (Bld) [Volume fraction] 35.2 % Low 36.0-48.0 [facility] Hemoglobin [Mass/volume] in Bloodon 12-30-2023 Hemoglobin (Bld) [Mass/Vol] 11.8 g/dL Low 12.0-16.0 [facility] Hgb/Hcton 12-30-2023 Hematocrit (Bld) [Volume fraction] 34.2 % Low 36.3-47.1 [facility] Comment on above: Performed By: #### O SMO, LD, MG, JESUS, TSHX, LIVP, B12FOL, LACTIC, FT4, BMP #### [facility] [address] [place] [id number] Staff Rn: Tato Ibarra MD Hemoglobin (Bld) [Mass/Vol] 11.0 g/dL Low 11.9-15.1 [facility] Comment on above: Performed By: #### O SMO, LD, MG, JESUS, TSHX, LIVP, B12FOL, LACTIC, FT4, BMP #### [facility] [address] [place] [id number] Staff Rn: Tato Ibarra MD Laboratory - Chemistry and C hemistry - challengeon 12-30-2023 Albumin [Mass/Vol] 1.9 g/dL Low 3.4-5.0 [facility] ALP [Catalytic activity/Vol] 149 U/L High 46-116 [facility] ALT [Catalytic activity/Vol] 18 U/L 14-59 [facility] AST [Catalytic activity/Vol] 34 U/L 15-37 [facility] Bilirubin [Mass/Vol] 0.3 mg/dL 0.2-1.0 [facility] Calcium [Mass/Vol] 8.3 mg/dL Low 8.5-10.1 [facility] Chloride [Moles/Vol] 107 mmol/L 98-107 [facility] CO2 [Moles/Vol] 25.6 mmol/L 21.0-32.0 [facility] Creatinine [Mass/Vol] 0.41 mg/dL Low 0.55-1.02 [facility] GFR/1.73 sq M.predicted MDRD (S/P/Bld) [Vol rate/Area] mL/min/{1.73_m2} >=60 [facility] Glucose [Mass/Vol] 85 mg/dL 74-106 [facility] Potassium [Moles/Vol] 3.2 mmol/L Low 3.5-5.1 [facility] Protein [Mass/Vol] 4.5 g/dL Low 6.4-8.2 [facility] Sodium [Moles/Vol] 141 mmol/L 136-145 [facility] Urea nitrogen [Mass/Vol] mg/dL Low 7.0-18.0 [facility] Urea nitrogen/Creatinine [Mass ratio] 2.4 mg/mg [facility] Laboratory - Hematology and Cell countson 12-30-2023 Immature granulocytes/100 WBC (Bld) 0.2 % 0.0-0.5 [facility] Leukocytes [#/volume] correc patty for nucleated erythrocytes in Blood by Automated counon 12-30-2023 WBC corrected for nucl RBC Auto (Bld) [#/Vol] 4.0 10 3/uL 4.0-11.0 [facility] Lymphocytes Auto (Bld) [#/Vo l]on 12-30-2023 Lymphocytes (Bld) [#/Vol] 1.3 10 3/uL 1.2-3.8 [facility] Lymphocytes/100 WBC Auto (Bl d)on 12-30-2023 Lymphocytes/100 WBC (Bld) 32.9 % 20.5-60.0 [facility] MCH Auto (RBC) [Entitic mass ]on 12-30-2023 MCH (RBC) [Entitic mass] 35.4 pg High 26.7-34.0 [facility] MCHC Auto (RBC) [Mass/Vol]on 12-30-2023 MCHC (RBC) [Mass/Vol] 33.2 g/dL 29.9-35.2 [facility] MCV Auto (RBC) [Entitic vol] on 12-30-2023 MCV (RBC) [Entitic vol] 106.7 fL High 81.0-99.0 [facility] Monocytes Auto (Bld) [#/Vol] on 12-30-2023 Monocytes (Bld) [#/Vol] 0.3 10 3/uL 0.3-0.8 [facility] Monocytes/100 WBC Auto (Bld) on 12-30-2023 Monocytes/100 WBC (Bld) 7.9 % 1.7-12.0 [facility] Neutrophils Auto (Bld) [#/Vo l]on 12-30-2023 Neutrophils (Bld) [#/Vol] 2.2 10 3/uL 1.4-6.5 [facility] Neutrophils/100 WBC Auto (Bl d)on 12-30-2023 Neutrophils/100 WBC (Bld) 55.6 % 43.0-75.0 [facility] No Panel Informationon 12-29 Eosinophils # (Auto) 0.1 10 3/uL 0.0-0.7 [facility] Immature Granulocyte # (Auto) 0.01 10 3/uL 0.00-0.03 [facility] Platelet mean volume Auto (B ld) [Entitic vol]on 12-30-2023 Platelet mean volume (Bld) [Entitic vol] 9.4 fL Low 9.5-13.5 [facility] Platelets Auto (Bld) [#/Vol] on 12-30-2023 Platelets (Bld) [#/Vol] 175 10 3/uL 150-450 [facility] RBC Auto (Bld) [#/Vol]on RBC (Bld) [#/Vol] 2.09 10 6/uL Low 4.20-5.40 [facility] Serum or plasma albumin/glob ulin mass ratioon 12-30-2023 Albumin/Globulin [Mass ratio] 0.7 {ratio} [facility] Serum or plasma anion gap de terminationon 12-30-2023 Anion gap [Moles/Vol] 11.6 mmol[facility] Basophils Auto (Bld) [#/Vol] on 12-29-2023 Basophils (Bld) [#/Vol] 0.0 10 3/uL 0.0-0.1 [facility] Basophils/100 WBC Auto (Bld) on 12-29-2023 Basophils/100 WBC (Bld) 0.8 % 0.2-2.0 [facility] Eosinophils/100 WBC Auto (Bl d)on 12-29-2023 Eosinophils/100 WBC (Bld) 1.4 % 0.9-7.0 [facility] Erythrocyte distribution wid th Auto (RBC) [Ratio]on 12-29-2023 Erythrocyte distribution width (RBC) [Ratio] 15.1 % High 11.0-15.0 [facility] Estimated glomerular filtrat ion rate (GFR) non- Americanon 12-29-2023 GFR/1.73 sq M.predicted among non-blacks MDRD (S/P/Bld) [Vol rate/Area] mL/min/{1.73_m2} >=60 [facility] Globulin Calc (S) [Mass/Vol] on 12-29-2023 Globulin (S) [Mass/Vol] 2.8 g/dL [facility] Hematocrit Auto (Bld) [Volum e fraction]on 12-29-2023 Hematocrit (Bld) [Volume fraction] 24.3 % Low 36.0-48.0 [facility] Hemoglobin [Mass/volume] in Bloodon 12-29-2023 Hemoglobin (Bld) [Mass/Vol] 8.1 g/dL Low 12.0-16.0 [facility] Laboratory - Chemistry and C hemistry - challengeon 12-29-2023 Albumin [Mass/Vol] 2.0 g/dL Low 3.4-5.0 [facility] ALP [Catalytic activity/Vol] 166 U/L High 46-116 [facility] ALT [Catalytic activity/Vol] 17 U/L 14-59 [facility] AST [Catalytic activity/Vol] 30 U/L 15-37 [facility] Bilirubin [Mass/Vol] 0.4 mg/dL 0.2-1.0 [facility] Calcium [Mass/Vol] 8.4 mg/dL Low 8.5-10.1 [facility] Chloride [Moles/Vol] 104 mmol/L 98-107 [facility] CO2 [Moles/Vol] 28.3 mmol/L 21.0-32.0 [facility] Creatinine [Mass/Vol] 0.52 mg/dL Low 0.55-1.02 [facility] GFR/1.73 sq M.predicted MDRD (S/P/Bld) [Vol rate/Area] mL/min/{1.73_m2} >=60 [facility] Glucose [Mass/Vol] 91 mg/dL 74-106 [facility] Potassium [Moles/Vol] 3.8 mmol/L 3.5-5.1 [facility] Protein [Mass/Vol] 4.8 g/dL Low 6.4-8.2 [facility] Sodium [Moles/Vol] 136 mmol/L 136-145 [facility] Urea nitrogen [Mass/Vol] 6.0 mg/dL Low 7.0-18.0 [facility] Urea nitrogen/Creatinine [Mass ratio] 11.5 mg/mg [facility] Laboratory - Hematology and Cell countson 12-29-2023 Immature granulocytes/100 WBC (Bld) 0.2 % 0.0-0.5 [facility] Leukocytes [#/volume] correc patty for nucleated erythrocytes in Blood by Automated counon 12-29-2023 WBC corrected for nucl RBC Auto (Bld) [#/Vol] 4.8 10 3/uL 4.0-11.0 [facility] Lymphocytes Auto (Bld) [#/Vo l]on 12-29-2023 Lymphocytes (Bld) [#/Vol] 1.7 10 3/uL 1.2-3.8 [facility] Lymphocytes/100 WBC Auto (Bl d)on 12-29-2023 Lymphocytes/100 WBC (Bld) 35.1 % 20.5-60.0 [facility] MCH Auto (RBC) [Entitic mass ]on 12-29-2023 MCH (RBC) [Entitic mass] 36.2 pg High 26.7-34.0 [facility] MCHC Auto (RBC) [Mass/Vol]on 12-29-2023 MCHC (RBC) [Mass/Vol] 33.5 g/dL 29.9-35.2 [facility] MCV Auto (RBC) [Entitic vol] on 12-29-2023 MCV (RBC) [Entitic vol] 108.2 fL High 81.0-99.0 [facility] Monocytes Auto (Bld) [#/Vol] on 12-29-2023 Monocytes (Bld) [#/Vol] 0.6 10 3/uL 0.3-0.8 [facility] Monocytes/100 WBC Auto (Bld) on 12-29-2023 Monocytes/100 WBC (Bld) 11.6 % 1.7-12.0 [facility] Neutrophils Auto (Bld) [#/Vo l]on 12-29-2023 Neutrophils (Bld) [#/Vol] 2.5 10 3/uL 1.4-6.5 [facility] Neutrophils/100 WBC Auto (Bl d)on 12-29-2023 Neutrophils/100 WBC (Bld) 50.9 % 43.0-75.0 [facility] No Panel Informationon 12-28 Eosinophils # (Auto) 0.1 10 3/uL 0.0-0.7 [facility] Immature Granulocyte # (Auto) 0.01 10 3/uL 0.00-0.03 [facility] Platelet mean volume Auto (B ld) [Entitic vol]on 12-29-2023 Platelet mean volume (Bld) [Entitic vol] 9.5 fL 9.5-13.5 [facility] Platelets Auto (Bld) [#/Vol] on 12-29-2023 Platelets (Bld) [#/Vol] 204 10 3/uL 150-450 [facility] RBC Auto (Bld) [#/Vol]on RBC (Bld) [#/Vol] 2.32 10 6/uL Low 4.20-5.40 [facility] Serum or plasma albumin/glob ulin mass ratioon 12-29-2023 Albumin/Globulin [Mass ratio] 0.7 {ratio} [facility] Serum or plasma anion gap de terminationon 12-29-2023 Anion gap [Moles/Vol] 7.5 mmol/L [facility] Basophils Auto (Bld) [#/Vol] on 12-28-2023 Basophils (Bld) [#/Vol] 0.0 10 3/uL 0.0-0.1 [facility] Basophils/100 WBC Auto (Bld) on 12-28-2023 Basophils/100 WBC (Bld) 0.3 % 0.2-2.0 [facility] Eosinophils/100 WBC Auto (Bl d)on 12-28-2023 Eosinophils/100 WBC (Bld) 0.2 % Low 0.9-7.0 [facility] Erythrocyte distribution wid th Auto (RBC) [Ratio]on 12-28-2023 Erythrocyte distribution width (RBC) [Ratio] 14.6 % 11.0-15.0 [facility] Estimated glomerular filtrat ion rate (GFR) non- Americanon 12-28-2023 GFR/1.73 sq M.predicted among non-blacks MDRD (S/P/Bld) [Vol rate/Area] mL/min/{1.73_m2} >=60 [facility] Globulin Calc (S) [Mass/Vol] on 12-28-2023 Globulin (S) [Mass/Vol] 3.4 g/dL [facility] Hematocrit Auto (Bld) [Volum e fraction]on 12-28-2023 Hematocrit (Bld) [Volume fraction] 27.1 % Low 36.0-48.0 [facility] Hemoglobin [Mass/volume] in Bloodon 12-28-2023 Hemoglobin (Bld) [Mass/Vol] 9.1 g/dL Low 12.0-16.0 [facility] Hemoglobin.gastrointestinal [Presence] in Stoolon 12-28-2023 Hemoglobin.gastrointes tinal Ql (Stl) Positive Abnormal [facility] INR in Platelet poor plasma by Coagulation assayon 12-28-2023 INR Coag (PPP) [Relative time] {INR} [facility] Comment on above: DESIRED INR:2.0-3.0 CONDITIONS NOT LISTED BELOW2.5-3.5 FOR PROSTHETIC HEART VALVE REPLACEMENT2.5-3.5 RECURRENT THROMBOSIS Laboratory - Chemistry and C hemistry - challengeon 12-28-2023 Calcium [Mass/Vol] 8.4 mg/dL Low 8.5-10.1 [facility] Chloride [Moles/Vol] 101 mmol/L 98-107 [facility] CO2 [Moles/Vol] 25.4 mmol/L 21.0-32.0 [facility] Creatinine [Mass/Vol] 0.57 mg/dL 0.55-1.02 [facility] GFR/1.73 sq M.predicted MDRD (S/P/Bld) [Vol rate/Area] mL/min/{1.73_m2} >=60 [facility] Glucose [Mass/Vol] 102 mg/dL 74-106 [facility] Potassium [Moles/Vol] 3.7 mmol/L 3.5-5.1 [facility] Sodium [Moles/Vol] 133 mmol/L Low 136-145 [facility] Urea nitrogen [Mass/Vol] 8.0 mg/dL 7.0-18.0 [facility] Urea nitrogen/Creatinine [Mass ratio] 14.0 mg/mg [facility] Bilirubin Ql (U) Negative NEGATIVE [facility] Glucose (U) [Mass/Vol] Negative NEGATIVE [facility] Ketones Ql (U) Negative NEGATIVE [facility] pH (U) 6.0 [pH] 5.0-9.0 [facility] Sodium (U) [Moles/Vol] 13 mmol/L Low 30-90 [facility] Specific gravity (U) [Rel density] <=1.005 Abnormal 1.005-1.02 5 [facility] Urobilinogen Qn (U) 0.2 {[place]'U}/dL 0.2-1.0 [facility] Lactate [Moles/Vol] 2.1 mmol/L High 0.4-2.0 [facility] Comment on above: RESULTS CALLED TO KATERIN LEARY RN Albumin [Mass/Vol] 2.2 g/dL Low 3.4-5.0 [facility] ALP [Catalytic activity/Vol] 219 U/L High 46-116 [facility] ALT [Catalytic activity/Vol] 21 U/L 14-59 [facility] AST [Catalytic activity/Vol] 45 U/L High 15-37 [facility] Bilirubin [Mass/Vol] 0.5 mg/dL 0.2-1.0 [facility] Protein [Mass/Vol] 5.6 g/dL Low 6.4-8.2 [facility] Laboratory - Hematology and Cell countson 12-28-2023 Immature granulocytes/100 WBC (Bld) 0.3 % 0.0-0.5 [facility] Laboratory - Specimen inform ationon 12-28-2023 Appearance (U) CLEAR CLEAR [facility] Color (U) LT. YELLOW YELLOW [facility] Laboratory - Urinalysison Leukocyte esterase Test strip Ql (U) Negative NEGATIVE [facility] Nitrite Ql (U) Negative NEGATIVE [facility] Protein Ql (U) Negative NEG/TRACE [facility] Leukocytes [#/volume] correc patty for nucleated erythrocytes in Blood by Automated counon 12-28-2023 WBC corrected for nucl RBC Auto (Bld) [#/Vol] 10.1 10 3/uL 4.0-11.0 [facility] Lymphocytes Auto (Bld) [#/Vo l]on 12-28-2023 Lymphocytes (Bld) [#/Vol] 2.9 10 3/uL 1.2-3.8 [facility] Lymphocytes/100 WBC Auto (Bl d)on 12-28-2023 Lymphocytes/100 WBC (Bld) 28.7 % 20.5-60.0 [facility] MCH Auto (RBC) [Entitic mass ]on 12-28-2023 MCH (RBC) [Entitic mass] 35.6 pg High 26.7-34.0 [facility] MCHC Auto (RBC) [Mass/Vol]on 12-28-2023 MCHC (RBC) [Mass/Vol] 34.4 g/dL 29.9-35.2 [facility] MCV Auto (RBC) [Entitic vol] on 12-28-2023 MCV (RBC) [Entitic vol] 103.6 fL High 81.0-99.0 [facility] Monocytes Auto (Bld) [#/Vol] on 12-28-2023 Monocytes (Bld) [#/Vol] 0.7 10 3/uL 0.3-0.8 [facility] Monocytes/100 WBC Auto (Bld) on 12-28-2023 Monocytes/100 WBC (Bld) 6.8 % 1.7-12.0 [facility] Neutrophils Auto (Bld) [#/Vo l]on 12-28-2023 Neutrophils (Bld) [#/Vol] 6.4 10 3/uL 1.4-6.5 [facility] Neutrophils/100 WBC Auto (Bl d)on 12-28-2023 Neutrophils/100 WBC (Bld) 63.7 % 43.0-75.0 [facility] No Panel Informationon 12-27 Urine Microscopic Review NO [facility] Urine Occult Blood Negative NEGATIVE [facility] Urine Osmolality 161 mOsmol/kg . [facility] Comment on above: 24 hr : 300 - 900 Ra ndom: 50 - 1400 After 12hr fluid restriction: >850Performed at: - [facility] [address] [id number] Director: Ab Giordano MD, Phone: [phone] Urine Random Creatinine <13.00 mg/dL Low 20.00-300. 00 [facility] Eosinophils # (Auto) 0.0 10 3/uL 0.0-0.7 [facility] Immature Granulocyte # (Auto) 0.03 10 3/uL 0.00-0.03 [facility] Troponin I High Sensitivity <4.0 pg/mL Low 4.0-51.3 [facility] Comment on above: CUT-OFF POINTS HAVE [...] IN CONJUNCTIONWITH OTHER DIAGNOSTIC AND CLINICAL INFORMATION. No Panel InformationOrdered By: Damaris Coffey on 12-28-2023 Blood Culture 2 [facility] Blood Culture 1 [facility] Platelet mean volume Auto (B ld) [Entitic vol]on 12-28-2023 Platelet mean volume (Bld) [Entitic vol] 9.8 fL 9.5-13.5 [facility] Platelets Auto (Bld) [#/Vol] on 12-28-2023 Platelets (Bld) [#/Vol] 315 10 3/uL 150-450 [facility] Prothrombin time (PT)on PT Coag (PPP) [Time] 9.6 s 9.0-11.6 [facility] RBC Auto (Bld) [#/Vol]on RBC (Bld) [#/Vol] 3.09 10 6/uL Low 4.20-5.40 [facility] Serum or plasma albumin/glob ulin mass ratioon 12-28-2023 Albumin/Globulin [Mass ratio] 0.6 {ratio} [facility] Serum or plasma anion gap de terminationon 12-28-2023 Anion gap [Moles/Vol] 10.3 mmol/L [facility] Basophils Auto (Bld) [#/Vol] on 11-10-2023 Basophils (Bld) [#/Vol] 0.0 10 3/uL 0.0-0.1 [facility] Basophils/100 WBC Auto (Bld) on 11-10-2023 Basophils/100 WBC (Bld) 0.5 % 0.2-2.0 [facility] Eosinophils/100 WBC Auto (Bl d)on 11-10-2023 Eosinophils/100 WBC (Bld) 0.1 % Low 0.9-7.0 [facility] Erythrocyte distribution wid th Auto (RBC) [Ratio]on 11-10-2023 Erythrocyte distribution width (RBC) [Ratio] 12.7 % 11.0-15.0 [facility] Estimated glomerular filtrat ion rate (GFR) non- Americanon 11-10-2023 GFR/1.73 sq M.predicted among non-blacks MDRD (S/P/Bld) [Vol rate/Area] 58 mL/min/{1.73_m2} Low >=60 [facility] Globulin Calc (S) [Mass/Vol] on 11-10-2023 Globulin (S) [Mass/Vol] 3.6 g/dL [facility] Hematocrit Auto (Bld) [Volum e fraction]on 11-10-2023 Hematocrit (Bld) [Volume fraction] 38.3 % 36.0-48.0 [facility] Hemoglobin [Mass/volume] in Bloodon 11-10-2023 Hemoglobin (Bld) [Mass/Vol] 13.2 g/dL 12.0-16.0 [facility] INR in Platelet poor plasma by Coagulation assayon 11-10-2023 INR Coag (PPP) [Relative time] {INR} [facility] Comment on above: DESIRED INR:2.0-3.0 CONDITIONS NOT LISTED BELOW2.5-3.5 FOR PROSTHETIC HEART VALVE REPLACEMENT2.5-3.5 RECURRENT THROMBOSIS Laboratory - Chemistry and C hemistry - challengeon 11-10-2023 Albumin [Mass/Vol] 3.0 g/dL Low 3.4-5.0 [facility] ALP [Catalytic activity/Vol] 232 U/L High 46-116 [facility] ALT [Catalytic activity/Vol] 23 U/L 14-59 [facility] AST [Catalytic activity/Vol] 82 U/L High 15-37 [facility] Bilirubin [Mass/Vol] 0.6 mg/dL 0.2-1.0 [facility] Calcium [Mass/Vol] 9.3 mg/dL 8.5-10.1 [facility] Chloride [Moles/Vol] 97 mmol/L Low 98-107 [facility] CO2 [Moles/Vol] 25.7 mmol/L 21.0-32.0 [facility] Creatinine [Mass/Vol] 0.99 mg/dL 0.55-1.02 [facility] GFR/1.73 sq M.predicted MDRD (S/P/Bld) [Vol rate/Area] mL/min/{1.73_m2} >=60 [facility] Glucose [Mass/Vol] 113 mg/dL High 74-106 [facility] Lipase [Catalytic activity/Vol] 16.0 U/L 16.0-77.0 [facility] Potassium [Moles/Vol] 3.0 mmol/L Low 3.5-5.1 [facility] Protein [Mass/Vol] 6.6 g/dL 6.4-8.2 [facility] Sodium [Moles/Vol] 133 mmol/L Low 136-145 [facility] Urea nitrogen [Mass/Vol] 4.0 mg/dL Low 7.0-18.0 [facility] Urea nitrogen/Creatinine [Mass ratio] 4.0 mg/mg [facility] Laboratory - Hematology and Cell countson 11-10-2023 Immature granulocytes/100 WBC (Bld) 0.4 % 0.0-0.5 [facility] Leukocytes [#/volume] correc patty for nucleated erythrocytes in Blood by Automated counon 11-10-2023 WBC corrected for nucl RBC Auto (Bld) [#/Vol] 7.3 10 3/uL 4.0-11.0 [facility] Lymphocytes Auto (Bld) [#/Vo l]on 11-10-2023 Lymphocytes (Bld) [#/Vol] 1.3 10 3/uL 1.2-3.8 [facility] Lymphocytes/100 WBC Auto (Bl d)on 11-10-2023 Lymphocytes/100 WBC (Bld) 17.4 % Low 20.5-60.0 [facility] MCH Auto (RBC) [Entitic mass ]on 11-10-2023 MCH (RBC) [Entitic mass] 38.2 pg High 26.7-34.0 [facility] MCHC Auto (RBC) [Mass/Vol]on 11-10-2023 MCHC (RBC) [Mass/Vol] 34.5 g/dL 29.9-35.2 [facility] MCV Auto (RBC) [Entitic vol] on 11-10-2023 MCV (RBC) [Entitic vol] 110.7 fL High 81.0-99.0 [facility] Monocytes Auto (Bld) [#/Vol] on 11-10-2023 Monocytes (Bld) [#/Vol] 0.5 10 3/uL 0.3-0.8 [facility] Monocytes/100 WBC Auto (Bld) on 11-10-2023 Monocytes/100 WBC (Bld) 6.7 % 1.7-12.0 [facility] Neutrophils Auto (Bld) [#/Vo l]on 11-10-2023 Neutrophils (Bld) [#/Vol] 5.5 10 3/uL 1.4-6.5 [facility] Neutrophils/100 WBC Auto (Bl d)on 11-10-2023 Neutrophils/100 WBC (Bld) 74.9 % 43.0-75.0 [facility] No Panel Informationon 11-09 Stool Occult Blood Negative [facility] Eosinophils # (Auto) 0.0 10 3/uL 0.0-0.7 [facility] Immature Granulocyte # (Auto) 0.03 10 3/uL 0.00-0.03 [facility] Troponin I High Sensitivity 11.2 pg/mL 4.0-51.3 [facility] Comment on above: CUT-OFF POINTS HAVE [...] volume (Bld) [Entitic vol] 9.8 fL 9.5-13.5 [facility] Platelets Auto (Bld) [#/Vol] on 11-10-2023 Platelets (Bld) [#/Vol] 305 10 3/uL 150-450 [facility] Prothrombin time (PT)on 10-24 PT Coag (PPP) [Time] 9.7 s 9.0-11.6 [facility] RBC Auto (Bld) [#/Vol]on RBC (Bld) [#/Vol] 3.46 10 6/uL Low 4.20-5.40 [facility] Serum or plasma albumin/glob ulin mass ratioon 11-10-2023 Albumin/Globulin [Mass ratio] 0.8 {ratio} [facility] Serum or plasma anion gap de terminationon 11-10-2023 Anion gap [Moles/Vol] 13.3 mmol[facility]L [facility] Basophils Auto (Bld) [#/Vol] on 09-03-2023 Basophils (Bld) [#/Vol] 0.0 10 3/uL 0.0-0.1 [facility] Basophils/100 WBC Auto (Bld) on 09-03-2023 Basophils/100 WBC (Bld) 0.4 % 0.2-2.0 [facility] Eosinophils/100 WBC Auto (Bl d)on 09-03-2023 Eosinophils/100 WBC (Bld) 0.4 % 0.9-7.0 [facility] Erythrocyte distribution wid th Auto (RBC) [Ratio]on 09-03-2023 Erythrocyte distribution width (RBC) [Ratio] 16.8 % 11.0-15.0 [facility] Estimated glomerular filtrat ion rate (GFR) non- Americanon 09-03-2023 GFR/1.73 sq M.predicted among non-blacks MDRD (S/P/Bld) [Vol rate/Area] 29 mL/min/{1.73_m2} >=60 [facility] Hematocrit Auto (Bld) [Volum e fraction]on 09-03-2023 Hematocrit (Bld) [Volume fraction] 36.0 % 36.0-48.0 [facility] Hemoglobin [Mass/volume] in Bloodon 09-03-2023 Hemoglobin (Bld) [Mass/Vol] 12.3 g/dL 12.0-16.0 [facility] Laboratory - Chemistry and C hemistry - challengeon 09-03-2023 Calcium [Mass/Vol] 9.3 mg/dL 8.5-10.1 [facility] Chloride [Moles/Vol] 98 mmol/L 98-107 [facility] CO2 [Moles/Vol] 23.8 mmol/L 21.0-32.0 [facility] Creatinine [Mass/Vol] 1.80 mg/dL 0.55-1.02 [facility] GFR/1.73 sq M.predicted MDRD (S/P/Bld) [Vol rate/Area] 36 mL/min/{1.73_m2} >=60 [facility] Glucose [Mass/Vol] 103 mg/dL 74-106 [facility] Potassium [Moles/Vol] 3.2 mmol/L 3.5-5.1 [facility] Sodium [Moles/Vol] 137 mmol/L 136-145 [facility] Urea nitrogen [Mass/Vol] 2.0 mg/dL 7.0-18.0 [facility] Urea nitrogen/Creatinine [Mass ratio] 1.1 mg/mg [facility] Laboratory - Hematology and Cell countson 09-03-2023 Immature granulocytes/100 WBC (Bld) 0.4 % 0.0-0.5 [facility] Leukocytes [#/volume] correc patty for nucleated erythrocytes in Blood by Automated counon 09-03-2023 WBC corrected for nucl RBC Auto (Bld) [#/Vol] 9.9 10 3/uL 4.0-11.0 [facility] Lymphocytes Auto (Bld) [#/Vo l]on 09-03-2023 Lymphocytes (Bld) [#/Vol] 1.7 10 3/uL 1.2-3.8 [facility] Lymphocytes/100 WBC Auto (Bl d)on 09-03-2023 Lymphocytes/100 WBC (Bld) 17.4 % 20.5-60.0 [facility] MCH Auto (RBC) [Entitic mass ]on 09-03-2023 MCH (RBC) [Entitic mass] 36.4 pg 26.7-34.0 [facility] MCHC Auto (RBC) [Mass/Vol]on 09-03-2023 MCHC (RBC) [Mass/Vol] 34.2 g/dL 29.9-35.2 [facility] MCV Auto (RBC) [Entitic vol] on 09-03-2023 MCV (RBC) [Entitic vol] 106.5 fL 81.0-99.0 [facility] Monocytes Auto (Bld) [#/Vol] on 09-03-2023 Monocytes (Bld) [#/Vol] 0.8 10 3/uL 0.3-0.8 [facility] Monocytes/100 WBC Auto (Bld) on 09-03-2023 Monocytes/100 WBC (Bld) 8.0 % 1.7-12.0 [facility] Neutrophils Auto (Bld) [#/Vo l]on 09-03-2023 Neutrophils (Bld) [#/Vol] 7.3 10 3/uL 1.4-6.5 [facility] Neutrophils/100 WBC Auto (Bl d)on 09-03-2023 Neutrophils/100 WBC (Bld) 73.4 % 43.0-75.0 [facility] No Panel Informationon 09-02 Eosinophils # (Auto) 0.0 10 3/uL 0.0-0.7 [facility] Immature Granulocyte # (Auto) 0.04 10 3/uL 0.00-0.03 [facility] Troponin I High Sensitivity 19.5 pg/mL 4.0-51.3 [facility] Comment on above: CUT-OFF POINTS HAVE BEEN ESTABLISHED BASED ON THE FOURTHIVERSAL DEFINITION OF MYOCARDIAL INFARCTION. THE UPPERREFERENCE LIMIT [...] volume (Bld) [Entitic vol] 9.8 fL 9.5-13.5 [facility] Platelets Auto (Bld) [#/Vol] on 09-03-2023 Platelets (Bld) [#/Vol] 312 10 3/uL 150-450 [facility] RBC Auto (Bld) [#/Vol]on RBC (Bld) [#/Vol] 3.38 10 6/uL 4.20-5.40 [facility] Serum or plasma anion gap de terminationon 09-03-2023 Anion gap [Moles/Vol] 18.4 mmol/L [facility] CT ANGIO CORONARY ART WITH H [...] PM -------- ORIGINAL REPORT -------- Dictation workstation: [id number] Interpreted By: Ibrahima Merlos, STUDY: CT ANGIO CORONARY ART WITH HEARTFLOW IF SCORE >30%; 07/15/2023 12:36 pm INDICATION: Signs/Symptoms:chest pain,angina. COMPARISON: None. ACCESSION NUMBER(S): [id number] ORDERING CLINICIAN: QUAN HUNTER TECHNIQUE: Using multi-detector [...] gender, and race in asymptomatic patients. Reading Die Lay Out Worker: Dr. Ibrahima Merlos, Date: 07/15/2023 4:40 pm Signed by: Ibrahima Merlos 07/15/2023 4:43 PM Dictation workstation: [id number] [facility] CTA Heart and Coronary arter [...] PM -------- ORIGINAL REPORT -------- Dictation workstation: [id number] [facility] Work Phone: 1. Mild diffuse po nary artery disease without significant stenosis. 2. Coronary artery calcium score 260, 99th percentile for age, gender, and race in asymptomatic patients. Reading Die Lay Out Worker: Dr. Ibrahima Merlos, Date: 07/15/2023 4:40 pm Signed by: Ibrahima Merlos 07/15/2023 4:43 PM Dictation workstation: [id number] Interpreted By: Ibrahima Avery, STUDY: CT ANGIO CORONARY ART WITH HEARTFLOW IF SCORE >30%; 07/15/2023 12:36 pm INDICATION: Signs/Symptoms:chest pain,angina. COMPARISON: None. ACCESSION NUMBER(S): [id number] ORDERING CLINICIAN: QUAN HUNTER TECHNIQUE: Using multi-detector [...] INDICATION: Signs/Symptoms:chest pain,angina. COMPARISON: None. ACCESSION NUMBER(S): [id number] ORDERING CLINICIAN: QUAN HUNTER TECHNIQUE: Using multi-detector [...] gender, and race in asymptomatic patients. Reading Die Lay Out Worker: Dr. Ibrahima Merlos, Date: 07/15/2023 4:40 pm Signed by: Ibrahima Merlos 07/15/2023 4:43 PM Dictation workstation: [id number] [facility] Work Phone: Radiology Study observation (narrative) [facility] Work Phone: CTA Heart and Coronary arter ies WO and W contrast IVOrdered By: Miriam Zuleta on 07-15-2023 [facility] Work Phone: Creatinineon 07-15-2023 Creatinine [Mass/Vol] 0.7 mg/dL Normal 0.6-1.3 [facility] Comment on above: Result Comment: Hydr oxyurea can cause significant interference with creatinine measurement using the i-STAT device. An alternate method of creatinine measurement must be used in patients treated with hydroxyurea. Performed By: #### 2 160-0 #### MIGUEL BRADLEY ([id number]) [facility] ([facility]) [address] [place] [address] Creatinine [Mass/Vol]on 06-27 GFR/1.73 sq M.predicted MDRD (S/P/Bld) [Vol rate/Area] - [facility] Comment on above: Calculations of martin mated GFR are performed using the 2020 CKD-EPI Study Refit equation without the race variable for the IDMS-Traceable Creatinine Methods. https://jasn.asnjournals.org/content/earlyASN.11602 12974 Interpretation and review of laboratory results Normal [facility] GFR/1.73 sq M.predicted MDRD (S/P/Bld) [Vol rate/Area] mL/min/{1.73_m2} Normal >=60 [facility] Comment on above: Result Comment: Calc ulations of estimated GFR are performed using the 2020 CKD-EPI Study Refit ???equation without the race variable for the IDMS-Traceable Creatinine Methods. https://jasn.asnjournals.org/content/ASN.12090 77025 Performed By: #### 2 160-0 #### MIGUEL BRADLEY ([id number]) [facility] ([facility]) [address] [place] [address] Laboratory - Chemistry and C hemistry - challengeon 07-15-2023 Creatinine [Mass/Vol] 0.7 mg/dL 0.6 - 1.3 mg/dL [facility] Comment on above: Hydroxyurea can caus e significant interference with creatinine measurement using the i-STAT device. An alternate method of creatinine measurement must be used in patients treated with hydroxyurea. [facility] E[facility] (TTE) COMPLETE [address], [address] [place] [address] TRANSTHORACIC ECHOCARDIOGRAM REPORT Patient Name: CANDY Mckee Physician: [id number] Ibrahima Serra DO Study Date: 06/13/2023 Ordering Provider: [id number] QUAN HUNTER MRN/PID: [id number] Fellow: Nurse: Date of /Age: 5 1970 / 52 years Controlled At[employer]ace Brazer: Ibrahima Valdes Gender: F Additional Staff: Height: 162.56 cm Admit Date: 06/13/2023 Weight: 86.18 kg Admission Status: Outpatient BSA: 1.91 m2 Department Location: [facility] Blood Pressure: 110 /60 mmHg Study Type: TRANSTHORACIC ECHO (TTE) COMPLETE Diagnosis/ICD: Shortness of breath-R06.02; Endocarditis, valve unspecified-I38 Indication: SOB, HV Disease, Dizziness, AO Dilation CPT Codes: Echo Complete w Full Doppler-[id number] Patient History: Smoker: Current. Pertinent History: HTN [...] RA Area A4C: 12.5 cm2 RA Major Rusk A4C: 4.3 cm AORTA MEASUREMENTS: Normal Ranges: Asc Ao, d: 4.10 cm (2.1-3.4cm) LV SYSTOLIC FUNCT (more content not included)... Normal [facility] Heart TransthoracicOrdere d By: Ibrahima Serra on 06-13-2023 Aortic Valve Area by Continuity of Peak Velocity 3.48 cm2 [facility] Work Phone: Aortic Valve Area by Continuity of VTI 3.57 cm2 [facility] Work Phone: AV mn grad 3.0 mmHg [facility] Work Phone: [phone] AV pk grad 4.7 mmHg [facility] Work Phone: AV pk liya 1.08 m/s [facility] Work Phone: LV A4C EF 55.8 [facility] Work Phone: LV biplane EF 56 % [facility] Work Phone: LVIDd 4.20 cm [facility] Work Phone: [phone] LVOT diam 2.20 cm [facility] Work Phone: MV avg E/e' ratio 4.90 [facility] Work Phone: MV E/A ratio 0.62 [facility] Work Phone: RVSP 35.5 mmHg [facility] Work Phone: [facility] Work Phone: [facility] [place] [address] [place] [address], [address], [place] [address] TRANSTHORACIC ECHOCARDIOGRAM REPORT Patient Name: CANDY Mckee Physician: [id number] Ibrahima Serra DO Study Date: 06/13/2023 Ordering Provider: [id number] QUAN HUNTER MRN/PID: [id number] Fellow: Nurse: Date of /Age: 5 1970 / 52 years Controlled At[employer] Brazer: Ibrahima Valdes Gender: F Additional Staff: Height: 162.56 cm Admit Date: 06/13/2023 Weight: 86.18 kg Admission Status: Outpatient BSA: 1.91 m2 Department Location: [facility] Blood Pressure: 110 /60 mmHg Study Type: TRANSTHORACIC ECHO (TTE) COMPLETE Diagnosis/ICD: Shortness of breath-R06.02; Endocarditis, valve unspecified-I38 Indication: SOB, HV Disease, Dizziness, AO Dilation CPT Codes: Echo Complete w Full Doppler-[id number] Patient History: Smoker: Current. Pertinent History: HTN [...] not included)... Ibrahima Meyer DO - 06/13/[address], [address], [place] [address] TRANSTHORACIC ECHOCARDIOGRAM REPORT Patient Name: CANDY Mckee Physician: [id number] Ibrahima Serra DO Study Date: 06/13/2023 Ordering Provider: [id number] QUAN HUNTER MRN/PID: [id number] Fellow: Nurse: Date of /Age: 5 1970 / 52 years Controlled [employer] Brazer: Ibrahima Valdes Gender: F Additional Staff: Height: 162.56 cm Admit Date: 06/13/2023 Weight: 86.18 kg Admission Status: Outpatient BSA: 1.91 m2 Department Location: [facility] Blood Pressure: 110 /60 mmHg Study Type: TRANSTHORACIC ECHO (TTE) COMPLETE Diagnosis/ICD: Shortness of breath-R06.02; Endocarditis, valve unspecified-I38 Indication: SOB, HV Disease, Dizziness, AO Dilation CPT Codes: Echo Complete w Full Doppler-70194 Patient History: Smoker: Current. Pertinent History: HTN [...] cm2 RA Cornelius (more content not included)... [facility] Work Phone: PROF 14(COMP METB)on 022 Albumin [Mass/Vol] 4.2 g/dL Normal 3.4-5.0 [facility] Comment on above: Performed By: #### C MP #### [facility] [address] [place] [address] Dr. Leonides Anders Albumin/Globulin [Mass ratio] 1.3 {ratio} Normal [facility] Comment on above: Performed By: #### C MP #### [facility] [address] [place] [address] Dr. Leonides Anders ALP [Catalytic activity/Vol] 90 U/L Normal 46-116 [facility] Comment on above: Performed By: #### C MP #### [facility] [address] [place] [address] Dr. Leonides Anders ALT [Catalytic activity/Vol] 25 U/L Normal 14-59 [facility] Comment on above: Performed By: #### C MP #### [facility] [address] [place] [address] Dr. Leonides Anders Anion gap [Moles/Vol] 12.1 mmol/L Normal [facility] Comment on above: Performed By: #### C MP #### [facility] [address] [place] [address] Dr. Leonides Anders AST [Catalytic activity/Vol] 20 U/L Normal 15-37 [facility] Comment on above: Performed By: #### C MP #### [facility] [address] [place] [address] Dr. Leonides Anders Bilirubin [Mass/Vol] 0.3 mg/dL Normal 0.2-1.0 [facility] Comment on above: Performed By: #### C MP #### [facility] [address] [place] [address] Dr. Leonides Anders Calcium [Mass/Vol] 9.4 mg/dL Normal 8.5-10.1 [facility] Comment on above: Performed By: #### C MP #### [facility] [address] [place], [place] [id number] Dr. Leonides Anders Chloride [Moles/Vol] 99 mmol/L Normal 98-107 [facility] Comment on above: Performed By: #### C MP #### [facility] [address] [place] [address] Dr. Leonides Anders CO2 [Moles/Vol] 26.2 mmol/L Normal 21.0-32.0 [facility] Comment on above: Performed By: #### C MP #### [facility] [address] [place] [address] Dr. Leonides Anders Creatinine [Mass/Vol] 0.68 mg/dL Normal 0.55-1.02 [facility] Comment on above: Performed By: #### C MP #### [facility] [address] [place] [address] Dr. Leonides Anders EGFR-AF KAZAKH >60 Normal >=60 [facility] Comment on above: Performed By: #### C MP #### [facility] [address] [place] [address] Dr. Leonides Anders EGFR-NON AF KAZAKH >60 Normal >=60 [facility] Comment on above: Performed By: #### C MP #### [facility] [address] [place] [address] Dr. Leonides Anders Globulin (S) [Mass/Vol] 3.3 g/dL Normal [facility] Comment on above: Performed By: #### C MP #### [facility] [address] [place] [address] Dr. Leonides Anders Glucose [Mass/Vol] 97 mg/dL Normal 74-106 [facility] Comment on above: Performed By: #### C MP #### [facility] [address] [place] [address] Dr. Leonides Anders Potassium [Moles/Vol] 4.3 mmol/L Normal 3.5-5.1 [facility] Comment on above: Performed By: #### C MP #### [facility] [address] [place] [address] Dr. Leonides Anders Protein [Mass/Vol] 7.5 g/dL Normal 6.4-8.2 [facility] Comment on above: Performed By: #### C MP #### [facility] [address] [place] [address] Dr. Leonides Anders Sodium [Moles/Vol] 133 mmol/L Critically low 136-145 [facility] Comment on above: Performed By: #### C MP #### [facility] [address] [place] [address] Dr. Leonides Anders Urea nitrogen [Mass/Vol] 10.0 mg/dL Normal 7.0-18.0 [facility] Comment on above: Performed By: #### C MP #### [facility] [address] [place] [address] Dr. Leonides Anders Urea nitrogen/Creatinine [Mass ratio] 14.7 mg/mg Normal [facility] Comment on above: Performed By: #### C MP #### [facility] [address] [place] [address] Dr. Leonides Anders CBC AUTO DIFFon 03-25-2022 BASO # 0.1 103/ul Normal 0.0-0.1 [facility] Comment on above: Performed By: #### C BC #### [facility] [address] [place] [address] Dr. Leonides Anders Basophils/100 WBC (Bld) 0.5 % Normal 0.2-2.0 [facility] Comment on above: Performed By: #### C BC #### [facility] [address] [place] [address] Dr. Leonides Anders EO # 0.1 103/ul Normal 0.0-0.7 [facility] Comment on above: Performed By: #### C BC #### [facility] [address] [place] [address] Dr. Leonides Anders Eosinophils/100 WBC (Bld) 1.1 % Normal 0.9-7.0 [facility] Comment on above: Performed By: #### C BC #### [facility] [address] [place] [address] Dr. Leonides Anders Erythrocyte distribution width (RBC) [Ratio] 12.9 % Normal 11.0-15.0 [facility] Comment on above: Performed By: #### C BC #### [facility] [address] [place] [address] Dr. Leonides Anders Hematocrit (Bld) [Volume fraction] 38.8 % Normal 36.0-48.0 [facility] Comment on above: Performed By: #### C BC #### [facility] [address] [place] [address] Dr. Leonides Anders Hemoglobin (Bld) [Mass/Vol] 13.8 g/dL Normal 12.0-16.0 [facility] Comment on above: Performed By: #### C BC #### [facility] [address] [place] [address] Dr. Leonides Anders IG # 0.03 10e3/ul Normal 0.00-0.03 [facility] Comment on above: Performed By: #### C BC #### [facility] [address] [place] [address] Dr. Leonides Anders IG % 0.3 % Normal 0.0-0.5 [facility] Comment on above: Performed By: #### C BC #### [facility] [address] [place] [address] Dr. Leonides Anders LYMPH # 2.5 103/ul Normal 1.2-3.8 [facility] Comment on above: Performed By: #### C BC #### [facility] [address] [place] [address] Dr. Leonides Anders Lymphocytes/100 WBC (Bld) 26.5 % Normal 20.5-60.0 [facility] Comment on above: Performed By: #### C BC #### [facility] [address] [place] [address] Dr. Leonides Anders MANUAL DIFF REQ NO Normal [facility] Comment on above: Performed By: #### C BC #### [facility] [address] [place] [address] Dr. Leonides Anders MCH (RBC) [Entitic mass] 32.0 pg Normal 26.7-34.0 [facility] Comment on above: Performed By: #### C BC #### [facility] [address] [address] [address] Leonides Anders MCHC (RBC) [Mass/Vol] 35.6 g/dL Critically high 29.9-35.2 [facility] Comment on above: Performed By: #### C BC #### [facility] [address] [place] [address] Dr. Leonides Anders MCV (RBC) [Entitic vol] 90.0 fL Normal 81.0-99.0 [facility] Comment on above: Performed By: #### C BC #### [facility] [address] [place] [address] Dr. Leonides Anders MONO # 0.9 103/ul Critically high 0.3-0.8 [facility] Comment on above: Performed By: #### C BC #### [facility] [address] [place] [address] Dr. Leonides Anders Monocytes/100 WBC (Bld) 9.8 % Normal 1.7-12.0 [facility] Comment on above: Performed By: #### C BC #### [facility] [address] [place] [address] Dr. Leonides Anders NEUT # 5.8 103/ul Normal 1.4-6.5 [facility] Comment on above: Performed By: #### C BC #### [facility] [address] [place] [address] Dr. Leonides Anders Neutrophils/100 WBC (Bld) 61.8 % Normal 43.0-75.0 [facility] Comment on above: Performed By: #### C BC #### [facility] [address] [place] [address] Dr. Leonides Anders Platelet mean volume (Bld) [Entitic vol] 9.5 fL Normal 9.5-13.5 [facility] Comment on above: Performed By: #### C BC #### [facility] [address] [place] [address] Dr. Leonides Anders PLT 255 103/ul Normal 150-450 [facility] Comment on above: Performed By: #### C BC #### [facility] [address] [place] [address] Dr. Leonides Anders RBC 4.31 106/ul Normal 4.20-5.40 [facility] Comment on above: Performed By: #### C BC #### [facility] [address] [place] [address] Dr. Leonides Anders WBC 9.4 103/ul Normal 4.0-11.0 [facility] Comment on above: Performed By: #### C BC #### [facility] [address] [place] [address] Dr. Leonides Anders PROF CHEM 8 (BAS METB)on Anion gap [Moles/Vol] 15.7 mmol/L Normal [facility] Comment on above: Performed By: #### B MP #### [facility] [address] [place] [address] Dr. Leonides Anders Calcium [Mass/Vol] 9.1 mg/dL Normal 8.5-10.1 [facility] Comment on above: Performed By: #### B MP #### [facility] [address] [place] [address] Dr. Leonides Anders Chloride [Moles/Vol] 91 mmol/L Critically low 98-107 [facility] Comment on above: Performed By: #### B MP #### [facility] [address] [place] [address] Dr. Leonides Anders CO2 [Moles/Vol] 22.8 mmol/L Normal 21.0-32.0 [facility] Comment on above: Performed By: #### B MP #### [facility] [address] [place] [address] Dr. Leonides Anders Creatinine [Mass/Vol] 0.57 mg/dL Normal 0.55-1.02 [facility] Comment on above: Performed By: #### B MP #### [facility] [address] [place] [address] Dr. Leonides Anders EGFR-AF KAZAKH >60 Normal >=60 [facility] Comment on above: Performed By: #### B MP #### [facility] [address] [address] [address] Leonides Anders EGFR-NON AF KAZAKH >60 Normal >=60 [facility] Comment on above: Performed By: #### B MP #### [facility] [address] [address] [address] Leonides Anders Glucose [Mass/Vol] 119 mg/dL Critically high 74-106 [facility] Comment on above: Performed By: #### B MP #### [facility] [address] [address] [address] Leonides Anders Potassium [Moles/Vol] 3.5 mmol/L Normal 3.5-5.1 [facility] Comment on above: Performed By: #### B MP #### [facility] [address] [place] [address] Dr. Leonides Anders Sodium [Moles/Vol] 126 mmol/L Critically low 136-145 [facility] Comment on above: Performed By: #### B MP #### [facility] [address] [place] [address] Dr. Leonides Anders Urea nitrogen [Mass/Vol] 4.0 mg/dL Critically low 7.0-18.0 [facility] Comment on above: Performed By: #### B MP #### [facility] [address] [place] [address] Dr. Leonides Anders Urea nitrogen/Creatinine [Mass ratio] 7.0 mg/mg Normal [facility] Comment on above: Performed By: #### B MP #### [facility] [address] [place] [address] Dr. Leonides Anders VITAMIN B12on 03-25-2022 Cobalamin (Vitamin B12) [Mass/Vol] 192.0 pg/mL Critically low 193.0-986. 0 [facility] Comment on above: Performed By: #### V ITB12 #### [facility] [address] [place] [address] Dr. Leonides Anders VIT D 1 25 DIHYDROXYon 12-06 Calcitriol(1,25 di-OH Vit D) 57.4 pg/mL Normal 24.8-81.5 [facility] Comment on above: Result Comment: Pl ease note reference interval change Performed By: #### V ALV219 ####[facility] [address] [place], [place] [address]Dr. Leonides Chago CBC AUTO DIFFon 12-04-2021 BASO # 0.1 103/ul Normal 0.0-0.1 [facility] Comment on above: Performed By: #### C BC ####[facility] [address] [place], [place] [address]Dr. Kanikatorey Anders Basophils/100 WBC (Bld) 0.5 % Normal 0.2-2.0 [facility] Comment on above: Performed By: #### C BC ####[facility] [address] [place], [place] [address]Dr. Leonides Chago EO # 0.2 103/ul Normal 0.0-0.7 [facility] Comment on above: Performed By: #### C BC ####[facility] [address] [place], [place] [address]Dr. Kanikatorey Anders Eosinophils/100 WBC (Bld) 2.3 % Normal 0.9-7.0 [facility] Comment on above: Performed By: #### C BC ####[facility] [address] [place], [place] [address]Dr. Leonides Anders Erythrocyte distribution width (RBC) [Ratio] 13.6 % Normal 11.0-15.0 [facility] Comment on above: Performed By: #### C BC ####[facility] [address] [place], [place] [address]Dr. Leonides Chago Hematocrit (Bld) [Volume fraction] 42.1 % Normal 36.0-48.0 [facility] Comment on above: Performed By: #### C BC ####[facility] [address] [place], [place] [address]Dr. Leonides Anders Hemoglobin (Bld) [Mass/Vol] 14.4 g/dL Normal 12.0-16.0 [facility] Comment on above: Performed By: #### C BC ####[facility] [address] [address]Dr. Leonides Anders IG # 0.02 10e3/ul Normal 0.00-0.03 [facility] Comment on above: Performed By: #### C BC ####[facility] [address] [address]Dr. Leonides Anders IG % 0.2 % Normal 0.0-0.5 [facility] Comment on above: Performed By: #### C BC ####[facility] [address] [place], [place] [address]DrAna Anders LYMPH # 3.6 103/ul Normal 1.2-3.8 [facility] Comment on above: Performed By: #### C BC ####[facility] [address] [place], [place] [address]DrAna Anders Lymphocytes/100 WBC (Bld) 38.3 % Normal 20.5-60.0 [facility] Comment on above: Performed By: #### C BC ####[facility] [address] [place], [place] [address]DrAna Anders MANUAL DIFF REQ NO Normal [facility] Comment on above: Performed By: #### C BC ####[facility] [address] [place], [place] [address]DrAna Anders MCH (RBC) [Entitic mass] 31.0 pg Normal 26.7-34.0 [facility] Comment on above: Performed By: #### C BC ####[facility] [address] [place], [place] [address]DrAna Anders MCHC (RBC) [Mass/Vol] 34.2 g/dL Normal 29.9-35.2 [facility] Comment on above: Performed By: #### C BC ####[facility] [address] [place], [place] [address]DrAna Anders MCV (RBC) [Entitic vol] 90.5 fL Normal 81.0-99.0 [facility] Comment on above: Performed By: #### C BC ####[facility] [address] [place], [place] [address]DrAna Anders MONO # 0.8 103/ul Normal 0.3-0.8 [facility] Comment on above: Performed By: #### C BC ####[facility] [address] [address]Dr. Leonides Anders Monocytes/100 WBC (Bld) 8.7 % Normal 1.7-12.0 [facility] Comment on above: Performed By: #### C BC ####[facility] [address] [address]Dr. Leonides Anders NEUT # 4.7 103/ul Normal 1.4-6.5 [facility] Comment on above: Performed By: #### C BC ####[facility] [address] [address]Dr. Leonides Anders Neutrophils/100 WBC (Bld) 50.0 % Normal 43.0-75.0 [facility] Comment on above: Performed By: #### C BC ####[facility] [address] [place], [place] [address]Dr. Leonides Anders Platelet mean volume (Bld) [Entitic vol] 9.3 fL Critically low 9.5-13.5 [facility] Comment on above: Performed By: #### C BC ####[facility] [address] [place], [place] [address]Dr. Leonides Anders PLT 263 103/ul Normal 150-450 [facility] Comment on above: Performed By: #### C BC ####[facility] [address] [place], [place] [address]Dr. Leonides Anders RBC 4.65 106/ul Normal 4.20-5.40 [facility] Comment on above: Performed By: #### C BC ####[facility] [address] [id number]. Leonides Anders WBC 9.5 103/ul Normal 4.0-11.0 [facility] Comment on above: Performed By: #### C BC ####[facility] [address] [place], [place] [address]DrAna Leonides Anders FERRITINon 12-04-2021 Ferritin [Mass/Vol] 69.0 ng/mL Normal 8.0-252.0 [facility] Comment on above: Performed By: #### F ERR, VITB12 #### [facility] [address] [address] [address] Leonides Anders LIPID PROFILEon 12-04-2021 CHOL-HDL RATIO NORM SEE BELOW Normal [facility] Comment on above: Result Comment: 3.3 - 4.4 LOW RISK 4.4 - 7.1 AVERAGE RISK 7.1 - 11.0 MODERATE RISK >11.0 HIGH RISK Performed By: #### C MP, LIPID #### [facility] [address] [address] [address] Leonides Anders Cholesterol [Mass/Vol] 234 mg/dL Critically high <=200 [facility] Comment on above: Performed By: #### C MP, LIPID #### [facility] [address] [address] [address] Leonides Anders Cholesterol in HDL [Mass/Vol] 48 mg/dL Normal 40-60 [facility] Comment on above: Performed By: #### C MP, LIPID #### [facility] [address] [address] [address] Leonides Anders Cholesterol in LDL [Mass/Vol] 150.8 mg/dL Normal [facility] Comment on above: Performed By: #### C MP, LIPID #### [facility] [address] [place], [place] [address] Dr. Leonides Anders Cholesterol.total/Chol esterol in HDL [Mass ratio] 4.9 {ratio} Normal [facility] Comment on above: Performed By: #### C MP, LIPID #### [facility] [address] [address] [address] Leonides Anders HDL NORMAL > or = 60 mg/dl - LO W CARDIOVASCULAR RISK <40 mg/dl - HIGH CARDIOVASCULAR RISK Normal [facility] Comment on above: Performed By: #### C MP, LIPID #### [facility] [address] [address] [address] Leonides Anders LDL CALC NORMAL SEE BELOW Normal [facility] Comment on above: Result Comment: <100 mg/dl OPTIMAL 100 - 129 mg/dl NEAR OR ABOVE OPTIMAL 130 - 159 mg/dl BORDERLINE HIGH 160 - 189 mg/dl HIGH >190 mg/dl VERY HIGH Performed By: #### C MP, LIPID #### [facility] [address] [place] [address] Dr. Leonides Anders Triglyceride [Mass/Vol] 176 mg/dL Critically high <=150 [facility] Comment on above: Performed By: #### C MP, LIPID #### [facility] [address] [place] [address] Dr. Leonides Anders VLDL CALC 35.2 mg/dL Normal [facility] Comment on above: Performed By: #### C MP, LIPID #### [facility] [address] [place] [address] Dr. Leonides Anders PROF 14(COMP METB)on 022 Albumin [Mass/Vol] 4.3 g/dL Normal 3.4-5.0 [facility] Comment on above: Performed By: #### C MP, LIPID #### [facility] [address] [place] [address] Dr. Leonides Anders Albumin/Globulin [Mass ratio] 1.3 {ratio} Normal [facility] Comment on above: Performed By: #### C MP, LIPID #### [facility] [address] [place] [address] Dr. Leonides Anders ALP [Catalytic activity/Vol] 96 U/L Normal 46-116 [facility] Comment on above: Performed By: #### C MP, LIPID #### [facility] [address] [place] [address] Dr. Leonides Anders ALT [Catalytic activity/Vol] 27 U/L Normal 14-59 [facility] Comment on above: Performed By: #### C MP, LIPID #### [facility] [address] [place] [address] Dr. Leonides Anders Anion gap [Moles/Vol] 12.5 mmol/L Normal [facility] Comment on above: Performed By: #### C MP, LIPID #### [facility] [address] [place] [address] Dr. Leonides Anders AST [Catalytic activity/Vol] 16 U/L Normal 15-37 [facility] Comment on above: Performed By: #### C MP, LIPID #### [facility] [address] [place] [address] Dr. Leonides Anders Bilirubin [Mass/Vol] 0.3 mg/dL Normal 0.2-1.0 [facility] Comment on above: Performed By: #### C MP, LIPID #### [facility] [address] [place] [address] Dr. Leonides Anders Calcium [Mass/Vol] 9.5 mg/dL Normal 8.5-10.1 [facility] Comment on above: Performed By: #### C MP, LIPID #### [facility] [address] [place] [address] Dr. Leonides Anders Chloride [Moles/Vol] 98 mmol/L Normal 98-107 [facility] Comment on above: Performed By: #### C MP, LIPID #### [facility] [address] [place] [address] Dr. Leonides Anders CO2 [Moles/Vol] 27.5 mmol/L Normal 21.0-32.0 [facility] Comment on above: Performed By: #### C MP, LIPID #### [facility] [address] [place] [address] Dr. Leonides Anders Creatinine [Mass/Vol] 0.82 mg/dL Normal 0.55-1.02 [facility] Comment on above: Performed By: #### C MP, LIPID #### [facility] [address] [place] [address] Dr. Leonides Anders EGFR-AF KAZAKH >60 Normal >=60 [facility] Comment on above: Performed By: #### C MP, LIPID #### [facility] [address] [place] [address] Dr. Leonides Anders EGFR-NON AF KAZAKH >60 Normal >=60 [facility] Comment on above: Performed By: #### C MP, LIPID #### [facility] [address] [place] [address] Dr. Leonides Anders Globulin (S) [Mass/Vol] 3.4 g/dL Normal [facility] Comment on above: Performed By: #### C MP, LIPID #### [facility] [address] [place] [address] Dr. Leonides Anders Glucose [Mass/Vol] 98 mg/dL Normal 74-106 [facility] Comment on above: Performed By: #### C MP, LIPID #### [facility] [address] [place] [address] Dr. Leonides Anders Potassium [Moles/Vol] 4.0 mmol/L Normal 3.5-5.1 [facility] Comment on above: Performed By: #### C MP, LIPID #### [facility] [address] [place] [address] Dr. Leonides Anders Protein [Mass/Vol] 7.7 g/dL Normal 6.4-8.2 [facility] Comment on above: Performed By: #### C MP, LIPID #### [facility] [address] [place] [address] Dr. Leonides Anders Sodium [Moles/Vol] 134 mmol/L Critically low 136-145 [facility] Comment on above: Performed By: #### C MP, LIPID #### [facility] [address] [place] [address] Dr. Leonides Anders Urea nitrogen [Mass/Vol] 9.0 mg/dL Normal 7.0-18.0 [facility] Comment on above: Performed By: #### C MP, LIPID #### [facility] [address] [place] [address] Dr. Leonides Anders Urea nitrogen/Creatinine [Mass ratio] 11.0 mg/mg Normal [facility] Comment on above: Performed By: #### C MP, LIPID #### [facility] [address] [place] [address] Dr. Leonides Anders US SINGLE QUAD RT [...] TUYET JONES Date: 2021-12-04 19:11 Normal [facility] VITAMIN B12on 12-04-2021 Cobalamin (Vitamin B12) [Mass/Vol] 232.0 pg/mL Normal 193.0-986. 0 [facility] Comment on above: Performed By: #### F ERR, VITB12 #### [facility] [address] [place] [address] Dr. Leonides Anders CBC AUTO DIFFon 11-03-2021 BASO # 0.0 103/ul Normal 0.0-0.1 [facility] Comment on above: Performed By: #### C BC #### [facility] [address] [place] [address] Dr. Leonides Anders Basophils/100 WBC (Bld) 0.6 % Normal 0.2-2.0 [facility] Comment on above: Performed By: #### C BC #### [facility] [address] [place] [address] Dr. Leonides Anders EO # 0.1 103/ul Normal 0.0-0.7 [facility] Comment on above: Performed By: #### C BC #### [facility] [address] [place] [address] Dr. Leonides Anders Eosinophils/100 WBC (Bld) 0.9 % Normal 0.9-7.0 [facility] Comment on above: Performed By: #### C BC #### [facility] [address] [place] [address] Dr. Leonides Anders Erythrocyte distribution width (RBC) [Ratio] 14.1 % Normal 11.0-15.0 [facility] Comment on above: Performed By: #### C BC #### [facility] [address] [place] [address] Dr. Leonides Anders Hematocrit (Bld) [Volume fraction] 44.9 % Normal 36.0-48.0 [facility] Comment on above: Performed By: #### C BC #### [facility] [address] [place] [address] Dr. Leonides Anders Hemoglobin (Bld) [Mass/Vol] 15.4 g/dL Normal 12.0-16.0 [facility] Comment on above: Performed By: #### C BC #### [facility] [address] [place] [address] Dr. Leonides Anders IG # 0.02 10e3/ul Normal 0.00-0.03 [facility] Comment on above: Performed By: #### C BC #### [facility] [address] [place] [address] Dr. Leonides Anders IG % 0.3 % Normal 0.0-0.5 [facility] Comment on above: Performed By: #### C BC #### [facility] [address] [place] [address] Dr. Leonides Anders LYMPH # 1.4 103/ul Normal 1.2-3.8 [facility] Comment on above: Performed By: #### C BC #### [facility] [address] [place] [address] Dr. Leonides Anders Lymphocytes/100 WBC (Bld) 20.3 % Critically low 20.5-60.0 [facility] Comment on above: Performed By: #### C BC #### [facility] [address] [place] [address] Dr. Leonides Anders MANUAL DIFF REQ NO Normal [facility] Comment on above: Performed By: #### C BC #### [facility] [address] [place] [address] Dr. Leonides Anders MCH (RBC) [Entitic mass] 30.6 pg Normal 26.7-34.0 [facility] Comment on above: Performed By: #### C BC #### [facility] [address] [address] [address] Leonides Anders MCHC (RBC) [Mass/Vol] 34.3 g/dL Normal 29.9-35.2 [facility] Comment on above: Performed By: #### C BC #### [facility] [address] [address] [address] Leonides Anders MCV (RBC) [Entitic vol] 89.3 fL Normal 81.0-99.0 [facility] Comment on above: Performed By: #### C BC #### [facility] [address] [address] [address] Leonides Anders MONO # 0.4 103/ul Normal 0.3-0.8 [facility] Comment on above: Performed By: #### C BC #### [facility] [address] [place] [address] Dr. Leonides Anders Monocytes/100 WBC (Bld) 6.3 % Normal 1.7-12.0 [facility] Comment on above: Performed By: #### C BC #### [facility] [address] [place] [address] Dr. Leonides Anders NEUT # 4.9 103/ul Normal 1.4-6.5 [facility] Comment on above: Performed By: #### C BC #### [facility] [address] [place] [address] Dr. Leonides Anders Neutrophils/100 WBC (Bld) 71.6 % Normal 43.0-75.0 [facility] Comment on above: Performed By: #### C BC #### [facility] [address] [place], [place] [id number] Dr. Leonides Anders Platelet mean volume (Bld) [Entitic vol] 9.1 fL Critically low 9.5-13.5 [facility] Comment on above: Performed By: #### C BC #### [facility] [address] [place] [address] Dr. Leonides Anders PLT 235 103/ul Normal 150-450 [facility] Comment on above: Performed By: #### C BC #### [facility] [address] [address] [address] Leonides Anders RBC 5.03 106/ul Normal 4.20-5.40 [facility] Comment on above: Performed By: #### C BC #### [facility] [address] [place], [place] [address] Dr. Leonides Anders WBC 6.8 103/ul Normal 4.0-11.0 [facility] Comment on above: Performed By: #### C BC #### [facility] [address] [place], [place] [address] ABD/PELV W CONon [...] by: MARGARET PARRA Date: 2021-11-03 10:51 Normal [facility] LACTATE/LACTIC ACIDon 2021 Lactate [Moles/Vol] 0.9 mmol/L Normal 0.4-1.9 [facility] Comment on above: Performed By: #### L ACT ####[facility] [address] [address]Dr. Leonides Anders LIPASEon 11-03-2021 Lipase [Catalytic activity/Vol] 44.0 U/L Critically low 73.0-393.0 [facility] Comment on above: Performed By: #### L IPA, CMP ####[facility] [address] [place], [place] [address]Dr. Leonides Anders PROF 14(COMP METB)on 022 Albumin [Mass/Vol] 4.3 g/dL Normal 3.4-5.0 [facility] Comment on above: Performed By: #### L IPA, CMP ####[facility] [address] [place], [place] [address]Dr. Leonides Anders Albumin/Globulin [Mass ratio] 1.3 {ratio} Normal [facility] Comment on above: Performed By: #### L IPA, CMP ####[facility] [address] [place], [place] [address]Dr. Leonides Anders ALP [Catalytic activity/Vol] 95 U/L Normal 46-116 [facility] Comment on above: Performed By: #### L IPA, CMP ####[facility] [address] [place], [place] [address]Dr. Leonides Anders ALT [Catalytic activity/Vol] 20 U/L Normal 14-59 [facility] Comment on above: Performed By: #### L IPA, CMP ####[facility] [address] [place], [place] [address]Dr. Leonides Anders Anion gap [Moles/Vol] 14.9 mmol/L Normal [facility] Comment on above: Performed By: #### L IPA, CMP ####[facility] [address] [place], [place] [address]Dr. Leonides Anders AST [Catalytic activity/Vol] 21 U/L Normal 15-37 [facility] Comment on above: Performed By: #### L IPA, CMP ####[facility] [address] [place], [place] [address]Dr. Leonides Anders Bilirubin [Mass/Vol] 0.5 mg/dL Normal 0.2-1.0 [facility] Comment on above: Performed By: #### L IPA, CMP ####[facility] [address] [place], [place] [address]Dr. Leonides Anders Calcium [Mass/Vol] 9.6 mg/dL Normal 8.5-10.1 [facility] Comment on above: Performed By: #### L IPA, CMP ####[facility] [address] [place], [place] [address]Dr. Leonides Anders Chloride [Moles/Vol] 99 mmol/L Normal 98-107 [facility] Comment on above: Performed By: #### L IPA, CMP ####[facility] [address] [place], [place] [address]Dr. Leonides Anders CO2 [Moles/Vol] 23.1 mmol/L Normal 21.0-32.0 [facility] Comment on above: Performed By: #### L IPA, CMP ####[facility] [address] [place], [place] [address]Dr. Leonides Anders Creatinine [Mass/Vol] 0.69 mg/dL Normal 0.55-1.02 [facility] Comment on above: Performed By: #### L IPA, CMP ####[facility] [address] [place], [place] [address]Dr. Leonides Anders EGFR-AF KAZAKH >60 Normal >=60 [facility] Comment on above: Performed By: #### L IPA, CMP ####[facility] [address] [place], [place] [address]Dr. Kanikatorey Anders EGFR-NON AF KAZAKH >60 Normal >=60 [facility] Comment on above: Performed By: #### L IPA, CMP ####[facility] [address] [place], [place] [address]Dr. Leonides Anders Globulin (S) [Mass/Vol] 3.4 g/dL Normal [facility] Comment on above: Performed By: #### L IPA, CMP ####[facility] [address] [place], [place] [address]Dr. Leonides Anders Glucose [Mass/Vol] 121 mg/dL Critically high 74-106 [facility] Comment on above: Performed By: #### L IPA, CMP ####[facility] [address] [address]Dr. Leonides Anders Potassium [Moles/Vol] 4.0 mmol/L Normal 3.5-5.1 [facility] Comment on above: Performed By: #### L IPA, CMP ####[facility] [address] [address]Dr. Leonides Anders Protein [Mass/Vol] 7.7 g/dL Normal 6.4-8.2 [facility] Comment on above: Performed By: #### L IPA, CMP ####[facility] [address] [address]Dr. Leonides Anders Sodium [Moles/Vol] 133 mmol/L Critically low 136-145 [facility] Comment on above: Performed By: #### L IPA, CMP ####[facility] [address] [address]Dr. Leonides Anders Urea nitrogen [Mass/Vol] 6.0 mg/dL Critically low 7.0-18.0 [facility] Comment on above: Performed By: #### L IPA, CMP ####[facility] [address] [place], [place] [address]Dr. Leonides Anders Urea nitrogen/Creatinine [Mass ratio] 8.7 mg/mg Normal [facility] Comment on above: Performed By: #### L IPA, CMP ####[facility] [address] [place], [place] [address]Dr. Leonides Anders TROPONIN, HIGH SENSITIVITYon 11-03-2021 HSTROP 6.0 pg/mL Normal 4.0-51.3 [facility] Comment on above: Result Comment: CUT- OFF POINTS HAVE BEEN ESTABLISHED BASED ON THE FOURTH UNIVERSAL DEFINITIONS OF MYOCARDIAL INFARCTION. THE UPPER REFERENCE LIMIT (URL) OF TROPONIN, DEFINED THE 99TH PERCENTILE OF cTnI DISTRIBUTION IN A REFERENCE POPULATION, HAS BEEN CONFIRMED THE DECISION THRESHOLD FOR [place] DIAGNOSIS. Performed By: #### H STROPN ####[facility] [place], [place] [address]WbAna [address] 03-26-2021 SHAUNAN Telephone (HEMAGRE) -- CANDY BOOTH ([id number]) 1970 F Date Time Provider Department 03/26/21 [...] Date Reviewed: 11/08/2020 Reviewed by: Hai Matute APRN.AUTOMATIC BRINE MIXER OPERATOR - Fully Assessed Reason for Visit: Rx Refills [128] Prescriptions as of 08/06/2021 - amitriptyline (ELAVIL) 75 mg tablet Take 75 mg by mouth daily at bedtime. - carisoprodol (SOMA) 350 mg tablet Take 350 mg by mouth four times daily. 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 - carisoprodol (SOMA) 350 mg tablet Take 350 mg by mouth four times daily. - amphetamine-dextroamphetam ine 15 mg tablet Take 1 tablet by [...] due to chronic blood los*10/11/2020 History of Linsey-en-Y gastric bypass [Z98.84] 10/11/2020 Encounter Status:Closed by MICHELLE ALLISON on 11/30/20 [facility] CNOVSPon 11-08-2020 CNOVSP Visit (SP) Office (H EMASA) -- CANDY BOOTH ([id number]) 1970 F Date Time Provider Department 11/08/20 1:30 PM HAI MATUTE During your visit today, we recorded the following information about you: Temperature Pulse Respiration Blood pressure 97.2 degrees 94/minute 16/minute 118/79 Weight Height 92.4 kg 1.702 m Hai Matute APRN.CNP 11/08/2020 3:37 PM Signed NAME: Candy Booth CLINIC NO.: [id number] DATE OF SERVICE: November 08, 2020 Referring [...] endoscopy. 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 amphetamine-dextroamphetam ine 15 mg tablet Take 1 tablet by [...] cap capsule (more content not included)... Normal [facility] Comp Metabolic Panelon 11-08 Albumin [Mass/Vol] 4.4 g/dL Normal 3.9-4.9 [facility] Comment on above: Performed By: #### F ERR, B12, IRON #### [facility] [address] [place], [place] [address] ALP [Catalytic activity/Vol] 111 U/L Normal 34-123 [facility] Comment on above: Performed By: #### F ERR, B12, IRON #### [facility] [address] [place] [address] ALT [Catalytic activity/Vol] 7 U/L Normal 7-38 [facility] Comment on above: Performed By: #### F ERR, B12, IRON #### [facility] [address] [address] Anion gap [Moles/Vol] 7 mmol/L Low 9-18 [facility] Comment on above: Performed By: #### F ERR, B12, IRON #### [facility] [address] [id number] AST [Catalytic activity/Vol] 17 U/L Normal 13-35 [facility] Comment on above: Performed By: #### F ERR, B12, IRON #### [address] [address] Bilirubin [Mass/Vol] mg/dL Low 0.2-1.3 [facility] Comment on above: Performed By: #### F ERR, B12, IRON #### [address] [address] Calcium [Mass/Vol] 9.7 mg/dL Normal 8.5-10.2 [facility] Comment on above: Performed By: #### F ERR, B12, IRON #### [address] [address] Chloride [Moles/Vol] 100 mmol/L Normal 97-105 [facility] Comment on above: Performed By: #### F ERR, B12, IRON #### [address] [id number] CO2 [Moles/Vol] 26 mmol/L Normal 22-30 [facility] Comment on above: Performed By: #### F ERR, B12, IRON #### [facility] [address] [id number] Creatinine [Mass/Vol] 0.63 mg/dL Normal 0.58-0.96 [facility] Comment on above: Performed By: #### F ERR, B12, IRON #### [facility] [address] [id number] eGFR- Amer. >60 Normal [facility] Comment on above: Performed By: #### F ERR, B12, IRON #### [facility] [address] [id number] eGFR-All Other Races >60 Normal [facility] Comment on above: Result Comment: eGFR (Estimated [...] By: #### F ERR, B12, IRON #### [facility] [address] [id number] Glucose [Mass/Vol] 104 mg/dL High 74-99 [facility] Comment on above: Result Comment: The [employer] Diabetes Association (ADA) provides guidance for cutoff [...] Standards of Medical Care in Diabetes 2016, [employer] Diabetes Association. Diabetes Care. 2016.39(Suppl 1). Performed By: #### F ERR, B12, IRON #### [facility] [address] [place] [id number] Potassium [Moles/Vol] 4.4 mmol/L Normal 3.7-5.1 [facility] Comment on above: Performed By: #### F ERR, B12, IRON #### [facility] [address] [place], [place] [address] Protein [Mass/Vol] 6.9 g/dL Normal 6.3-8.0 [facility] Comment on above: Performed By: #### F ERR, B12, IRON #### [address] [place], [place] [address] Sodium [Moles/Vol] 133 mmol/L Low 136-144 [facility] Comment on above: Performed By: #### F ERR, B12, IRON #### [address] [address] Urea nitrogen [Mass/Vol] 9 mg/dL Normal 7-21 [facility] Comment on above: Performed By: #### F ERR, B12, IRON #### [address] [place] [address] Ferritinon 11-08-2020 Ferritin [Mass/Vol] 13.1 ng/mL Low 14.7-205.1 [facility] Comment on above: Performed By: #### F ERR, B12, IRON #### [address] [address] Iron and TIBCon 11-08-2020 Iron [Mass/Vol] 29 ug/dL Low 41-186 [facility] Comment on above: Performed By: #### F ERR, B12, IRON #### [address] [address] TIBC 405 ug/dL High 232-386 [facility] Comment on above: Performed By: #### F ERR, B12, IRON #### [address] [place], [place] [address] Transferrin Saturatn 7 % Low 15-57 [facility] Comment on above: Performed By: #### F ERR, B12, IRON #### [address] [place], [place] [address] Remote CBCDIF (for [facility] use o nly)on 11-08-2020 Abs Baso 0.04 k/uL Normal <0.11 [facility] Abs Cache 0.79 k/uL Normal <0.87 [facility] Abs Neut 8.64 k/uL High 1.45-7.50 [facility] Absolute nRBC <0.01 Normal <0.01 [facility] Basophils/100 WBC (Bld) 0.3 % Normal [facility] DTYPE Auto Diff Normal [facility] Eosinophils (Bld) [#/Vol] 0.11 10*3/uL Normal <0.46 [facility] Eosinophils/100 WBC (Bld) 0.9 % Normal [facility] Erythrocyte distribution width (RBC) [Ratio] 18.0 % High 11.5-15.0 [facility] Hematocrit (Bld) [Volume fraction] 34.8 % Low 36.0-46.0 [facility] Hemoglobin (Bld) [Mass/Vol] 11.2 g/dL Low 11.5-15.5 [facility] Lymphocytes (Bld) [#/Vol] 2.16 10*3/uL Normal 1.00-4.00 [facility] Lymphocytes/100 WBC (Bld) 18.4 % Normal [facility] MCH 25.5 pG Low 26.0-34.0 [facility] MCHC (RBC) [Mass/Vol] 32.2 g/dL Normal 30.5-36.0 [facility] MCV (RBC) [Entitic vol] 79.1 fL Low 80.0-100.0 [facility] Monocytes/100 WBC (Bld) 6.7 % Normal [facility] Neutrophils/100 WBC (Bld) 73.7 % Normal [facility] NRBCs 0.0 /100 WBC Normal 0 [facility] Platelet mean volume (Bld) [Entitic vol] 9.3 fL Normal 9.0-12.7 [facility] Platelets (Bld) [#/Vol] 253 10*3/uL Normal 150-400 [facility] RBC (Bld) [#/Vol] 4.40 10*6/uL Normal 3.90-5.20 [facility] WBC (Bld) [#/Vol] 11.74 10*3/uL High 3.70-11.00 [facility] Vitamin B12on 11-08-2020 Cobalamin (Vitamin B12) [Mass/Vol] 236 pg/mL Normal 232-1245 [facility] Comment on above: Performed By: #### F ERR, B12, IRON #### [facility] [address] [place] [id number] CNPNon 11-02-2020 CNPN Telephone (HEMASA) -- CANDY BOOTH ([id number]) 1970 F Date Time Provider Department 11/02/20 HAI MATUTE During your visit today, we recorded the following information about you: Analisa Tai 11/02/2020 8:07 AM Signed Patient schedule to see you Friday11/08/20 for follow up lab. Please sign pending cbc order. ThanksAnalisa Allergies As of Date: 11/02/2020 Noted Allergy [...] Fully Assessed Reason for Visit: Lab Orders [0589] Primary Visit Diagnosis:Megaloblastic anemia due to vitamin [...] Take 350 mg by mouth four pamela* DEXTROAMPHETAMINE-AMPHETAM INE* Take 1 tablet by mouth twice * [...] due to chronic blood los*10/11/2020 History of Linsey-en-Y gastric bypass [Z98.84] 10/11/2020 Encounter Status:Closed by ANALISA TAI on 11/06/20 [facility] CNNURSEon 10-11-2020 CNNURSE Nurse Visit (HEMASA) -- CANDY BOOTH ([id number]) 1970 F Date Time Provider Department 10/11/20 4:00 PM THANH NURSE PAUL VICTORIA HEMASA During your visit today, we recorded the following information about you: Analisa Tai 10/11/2020 4:09 PM Signed Patient Identification confirmed: yes. Injection given and documented on JUL per provider order. Analisa Tai Referring Provider: JAY AMAYA [[id number]] Allergies As of Date: 10/11/2020 Noted Allergy [...] to chronic blood loss [D50.0] History of Linsey-en-Y gastric bypass [Z98.84] Order(s):TREATMENT PARAMETER-NOT NEEDED [6413833] Order #: [id number]: 1 [facility] NURSING COMMUNICATION [[id number]] Order #: [id number]: 1 STANDING [] cyanocobalamin 1,000 mcg injectionDisp: [...] Take 350 mg by mouth four pamela* DEXTROAMPHETAMINE-AMPHETAM INE* Take 1 tablet by mouth twice * [...] due to chronic blood los*10/11/2020 History of Linsey-en-Y gastric bypass [Z98.84] 10/11/2020 Visit Notes: >> August Zaire FriOctober 11, 2020 4:07 PM Status: Signed Patient Identification confirmed: yes. Injection given and documented on JUL per provider order. August Zaire Prescriptions ordered this encounter Disp Refills Start End CYANOCOBALAMIN (VIT B-12) 1,000 MCG/* 10/11/2020 10/11/2020 Route: INTRAMUSCULA Encounter Status:Closed by ZAIRE AUGUST on 10/11/20 [facility] CNOVSOlu 10-11-2020 CNOVSP Visit (SP) Office ([facility]) -- CANDY BOOTH ([id number]) 1970 F Date Time Provider Department 10/11/20 3:15 PM JAY AMAYA During your visit today, we recorded the following information about you: Temperature Pulse Respiration Blood pressure 96.9 degrees 120/minute 16/minute 111/60 Weight Height 92.3 kg 1.702 m Jay Amaya MD 10/21/2020 6:59 PM Signed NAME: Candy Booth CLINIC NO.: [id number] DATE OF SERVICE: October 11, 2020 Referring [...] endoscopy. 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 amphetamine-dextroamphetam ine 15 mg tablet Take 1 tablet by [...] TIMES DAILY (more content not included)... Normal [facility] Comp Metabolic Panelon 10-11 Albumin [Mass/Vol] 4.2 g/dL Normal 3.9-4.9 [facility] ALP [Catalytic activity/Vol] 102 U/L Normal 34-123 [facility] ALT [Catalytic activity/Vol] 7 U/L Normal 7-38 [facility] Anion gap [Moles/Vol] 10 mmol/L Normal 9-18 [facility] AST [Catalytic activity/Vol] 19 U/L Normal 13-35 [facility] Bilirubin [Mass/Vol] mg/dL Low 0.2-1.3 [facility] Calcium [Mass/Vol] 9.7 mg/dL Normal 8.5-10.2 [facility] Chloride [Moles/Vol] 98 mmol/L Normal 97-105 [facility] CO2 [Moles/Vol] 22 mmol/L Normal 22-30 [facility] Creatinine [Mass/Vol] 0.58 mg/dL Normal 0.58-0.96 [facility] eGFR- Amer. >60 Normal [facility] eGFR-All Other Races >60 Normal [facility] Comment on above: Result Comment: eGFR (Estimated [...] GFR. Glucose [Mass/Vol] 106 mg/dL High 74-99 [facility] Comment on above: Result Comment: The [employer] Diabetes Association (ADA) provides guidance for cutoff [...] Standards of Medical Care in Diabetes 2016, [place] Diabetes Association. Diabetes Care. 2016.39(Suppl 1). Potassium [Moles/Vol] 4.2 mmol/L Normal 3.7-5.1 [facility] Protein [Mass/Vol] 7.2 g/dL Normal 6.3-8.0 [facility] Sodium [Moles/Vol] 130 mmol/L Low 136-144 [facility] Urea nitrogen [Mass/Vol] 3 mg/dL Low 7-21 [facility] Ferritinon 10-11-2020 Ferritin [Mass/Vol] 23.6 ng/mL Normal 14.7-205.1 [facility] Comment on above: Performed By: #### I RYAN, B12, SERFOL, FERR #### [facility] [address] [address] Folate, Serumon 10-11-2020 Folate [Mass/Vol] 12.7 ng/mL Normal >4.7 [facility] Comment on above: Performed By: #### I RYAN, B12, SERFOL, FERR #### [facility] [address] [address] Iron and TIBCon 10-11-2020 Iron [Mass/Vol] 22 ug/dL Low 41-186 [facility] Comment on above: Performed By: #### I RYAN, B12, SERFOL, FERR #### [facility] [address] [place], [place] [address] TIBC 386 ug/dL Normal 232-386 [facility] Comment on above: Performed By: #### I RYAN, B12, SERFOL, FERR #### [facility] [address] [place], [place] [address] Transferrin Saturatn 6 % Low 15-57 [facility] Comment on above: Performed By: #### I RYAN, B12, SERFOL, FERR #### [facility] [address] [place] [place], [place] [address] LDon 10-11-2020 LD 182 U/L Normal 135-214 [facility] Remote CBCDIF (for [facility] use o nly)on 10-11-2020 Abs Baso 0.05 k/uL Normal <0.11 [facility] Abs Cache 0.67 k/uL Normal <0.87 [facility] Abs Neut 6.73 k/uL Normal 1.45-7.50 [facility] Absolute nRBC <0.01 Normal <0.01 [facility] Basophils/100 WBC (Bld) 0.5 % Normal [facility] DTYPE Auto Diff Normal [facility] Eosinophils (Bld) [#/Vol] 0.13 10*3/uL Normal <0.46 [facility] Eosinophils/100 WBC (Bld) 1.4 % Normal [facility] Erythrocyte distribution width (RBC) [Ratio] 18.4 % High 11.5-15.0 [facility] Hematocrit (Bld) [Volume fraction] 34.7 % Low 36.0-46.0 [facility] Hemoglobin (Bld) [Mass/Vol] 11.0 g/dL Low 11.5-15.5 [facility] Lymphocytes (Bld) [#/Vol] 2.00 10*3/uL Normal 1.00-4.00 [facility] Lymphocytes/100 WBC (Bld) 20.9 % Normal [facility] MCH 25.7 pG Low 26.0-34.0 [facility] MCHC (RBC) [Mass/Vol] 31.7 g/dL Normal 30.5-36.0 [facility] MCV (RBC) [Entitic vol] 81.1 fL Normal 80.0-100.0 [facility] Monocytes/100 WBC (Bld) 7.0 % Normal [facility] Neutrophils/100 WBC (Bld) 70.2 % Normal [facility] NRBCs 0.0 /100 WBC Normal 0 [facility] Platelet mean volume (Bld) [Entitic vol] 9.7 fL Normal 9.0-12.7 [facility] Platelets (Bld) [#/Vol] 338 10*3/uL Normal 150-400 [facility] RBC (Bld) [#/Vol] 4.28 10*6/uL Normal 3.90-5.20 [facility] WBC (Bld) [#/Vol] 9.58 10*3/uL Normal 3.70-11.00 [facility] Vitamin B12on 10-11-2020 Cobalamin (Vitamin B12) [Mass/Vol] 188 pg/mL Low 232-1245 [facility] Comment on above: Performed By: #### I RYAN, B12, SERFOL, FERR #### [facility] [address] [address] FLUORO FOR SURGICAL PROCEDUR ESon 02-09-2018 FLUORO [...] by:FANG Angeligned by:Callum Salinas MD02/09/18inal result Normal [facility] Surgical Specimenon 02-10-20 Surgical Specimen Invalid Interpretation Code [facility] Comment on above: Result Comment: [place] [id number] [phone] SURGICAL PATHOLOGY REPORTPatient Name: CANDY BOOTH Accession No: [id number] Age Sex: 1970 Location: DIS ORPOOLNONAccount No: [id number] Collected: 02/09/2018Med Rec No: [id number] Received: 02/09/2018Attend Phys: PATRICK REJI Completed: 02/11/2018Perform Phys: PATRICK YOOFINAL DIAGNOSIS:DISC TISSUE, L4-5, LEFT-DEGENERATED CARTILAGE. SIVES/SIVESCLINICAL INFORMATION:L4-5 left HNP. Disk.SPECIMEN:DiscGROSS DESCRIPTION:Specimen container is labeled with the patient's name and designated spine . In formalin are multiple irregular shaggy fragments of villarreal andpink soft and firm tissue measuring in aggregate 3 x 2.5 x 0.5 cm.Majority of tissue is submitted in two cassettes. PUNEET/FLOYDT: [id number] ROMERO M.D. 02/11/2018 Electronically signed out by Page 1 of 1 Basic Metabolic Panelon 01-24 Anion gap 3 molar conc 12 mmol/L Normal 7-13 [facility] Calcium mass conc 9.2 mg/dL Normal 8.6-10.2 [facility] Chloride molar conc 102 mmol/L Normal 98-107 [facility] CO2 molar conc 25 mmol/L Normal 22-29 [facility] Creatinine mass conc 0.42 mg/dL Low 0.50-0.90 [facility] GFR/1.73 sq M predicted among blacks MDRD vol rate/area (S/P/Bld) mL/min/{1.73_m2} Normal >60 [facility] Comment on above: Result Comment: >60 mL/min/1.73m2 EGFR, calc. for ages 18 and older using theMDRD formula (not corrected for weight), is valid for stablerenal function. GFR/1.73 sq M.predicted MDRD vol rate/area mL/min/{1.73_m2} Normal >60 [facility] Comment on above: Result Comment: >60 mL/min/1.73m2 EGFR, calc. for ages 18 and older using theMDRD formula (not corrected for weight), is valid for stablerenal function. Glucose mass conc 82 mg/dL Normal 74-109 [facility] Potassium molar conc 4.2 mmol/L Normal 3.5-5.1 [facility] Sodium molar conc 139 mmol/L Normal 132-144 [facility] Urea nitrogen mass conc 6 mg/dL Normal 6-20 [facility] CBC With Platelet No Differe ntialon 02-06-2018 Erythrocyte distribution width Auto Ratio (RBC) 20.2 % Critically high 11.5-14.5 [facility] Hematocrit Auto Volume Fraction (Bld) 36.3 % Low 37.0-47.0 [facility] Hemoglobin mass conc (Bld) 11.5 g/dL Low 12.0-16.0 [facility] MCH Auto Entitic mass (RBC) 24.1 pg Low 27.0-31.3 [facility] MCHC Auto mass conc (RBC) 31.7 % Low 33.0-37.0 [facility] MCV Auto Entitic volume (RBC) 76.0 fL Low 82.0-100.0 [facility] Platelets Auto #/vol (Bld) 203 10*3/uL Normal 130-400 [facility] RBC Auto #/vol (Bld) 4.78 10*6/uL Normal 4.20-5.40 [facility] WBC Auto #/vol (Bld) 4.9 10*3/uL Normal 4.8-10.8 [facility] Partial Thromboplastin Timeo n 02-06-2018 aPTT Coag time (Bld) 26.6 s Normal 21.6-35.4 [facility] Comment on above: Result Comment: Hepa rin Therapeutic Range: 38.8 - 54.6 seconds. Prothrombin Timeon 201 8 INR Coag RelTime (PPP) 0.9 {INR} Normal [facility] Comment on above: Result Comment: Madhu mmended [...] Coag time (PPP) 9.4 s Low 9.6-12.3 [facility] Type and Screen Capture 3 sc rn cellon 02-06-2018 Bilirubin mass conc PATIENT: EMMY Acuña LOC: LCPAT,,BILL# : [id number] : 1970 SEX: FORDERED BY: EMILY LUCERO ORDERED : 02/06/2018 07:42 COLLECTED: 02/06/2018 08:25ORDER : [id number] RECEIVED : 02/06/2018 08:25 -----TEST NAME RESULT UNITS RANGES ABN FL STABORH Capture O NEG FAntibody 3 Cell Scrn Captu NEG F Normal [facility] Urinalysis, reflex to cultur constantin 02-06-2018 Bilirubin Ql (U) Negative Normal Negative [facility] Clarity Nom (U) Clear Normal Clear [facility] Color Nom (U) Yellow Normal Straw/Wirt [facility] Glucose Ql (U) Negative Normal Negative [facility] Hemoglobin Test strip Ql (U) Negative Normal Negative [facility] Ketones Ql (U) Negative Normal Negative [facility] Leukocyte esterase Test strip Ql (U) Negative Normal Negative [facility] Nitrite Test strip Ql (U) Negative Normal Negative [facility] pH Test strip (U) 6.0 [pH] Normal 5.0-9.0 [facility] Protein Test strip Ql (U) Negative Normal Negative [facility] Specific gravity Relative Density (U) 1.009 Normal 1.005-1.03 [facility] Urine Reflexed to Culture Not Indicated Normal [facility] Urobilinogen Test strip Qn (U) 0.2 {[place]'U}/dL Normal < 2.0 [facility] Vital Signs Date Time Vital Sign Value Performing Clinician Facility 01-30-2024 11:32-0400 Body height 167.64 cm [facility] 01-30-2024 11:32-0400 Body mass index (BMI) [Ratio] 27.4 kg/m2 [facility] 01-30-2024 11:32-0400 Body weight 77.11 kg [facility] 01-30-2024 11:32-0400 Diastolic blood pressure 75 mm[Hg] [facility] 01-30-2024 11:32-0400 Heart rate 108 /min [facility] 01-30-2024 11:32-0400 Systolic blood pressure 115 mm[Hg] [facility] 01-20-2024 13:55-0400 Body height 167.64 cm [facility] 01-20-2024 13:55-0400 Body mass index (BMI) [Ratio] 27.2 kg/m2 [facility] 01-20-2024 13:55-0400 Body weight 76.65 kg [facility] 01-20-2024 13:55-0400 Diastolic blood pressure 62 mm[Hg] [facility] 01-20-2024 13:55-0400 Heart rate 130 /min [facility] 01-20-2024 13:55-0400 SaO2% (BldA) [Mass fraction] 75 % [facility] 01-20-2024 13:55-0400 Systolic blood pressure 76 mm[Hg] [facility] 12-18-2023 13:49-0400 Body height 167.64 cm [facility] 12-18-2023 13:49-0400 Body mass index (BMI) [Ratio] 29.3 kg/m2 [facility] 12-18-2023 13:49-0400 Body weight 82.55 kg [facility] 12-18-2023 13:49-0400 Diastolic blood pressure 61 mm[Hg] [facility] 12-18-2023 13:49-0400 Heart rate 128 /min [facility] 12-18-2023 13:49-0400 Systolic blood pressure 85 mm[Hg] [facility] 12-11-2023 16:13-0400 Body height 167.64 cm [facility] 12-11-2023 16:13-0400 Body mass index (BMI) [Ratio] 32 kg/m2 [facility] 12-11-2023 16:13-0400 Body temperature 97 [degF] [facility] 12-11-2023 16:13-0400 Body weight 90 kg [facility] 12-11-2023 16:13-0400 Diastolic blood pressure 78 mm[Hg] [facility] 12-11-2023 16:13-0400 Heart rate 117 /min [facility] 12-11-2023 16:13-0400 Systolic blood pressure 123 mm[Hg] [facility] 10-14-2023 16:06-0400 Body temperature 97.9 [degF] [facility] 10-14-2023 16:06-0400 Heart rate 116 /min [facility] 10-14-2023 16:06-0400 SaO2% (BldA) [Mass fraction] 89 % [facility] 09-22-2023 14:17-0400 Body height 167.64 cm [facility] 09-22-2023 14:17-0400 Diastolic blood pressure 77 mm[Hg] [facility] 09-22-2023 14:17-0400 Heart rate 66 /min [facility] 09-22-2023 14:17-0400 Systolic blood pressure 109 mm[Hg] [facility] 09-12-2023 09:25-0400 Body height 167.64 cm [facility] 09-12-2023 09:25-0400 Body mass index (BMI) [Ratio] 31.3 kg/m2 [facility] 09-12-2023 09:25-0400 Body temperature 97.3 [degF] [facility] 09-12-2023 09:25-0400 Body weight 88 kg [facility] 09-12-2023 09:25-0400 Diastolic blood pressure 68 mm[Hg] [facility] 09-12-2023 09:25-0400 Heart rate 113 /min [facility] 09-12-2023 09:25-0400 Systolic blood pressure 103 mm[Hg] [facility] 08-26-2023 15:11-0400 Body height 167.64 cm [facility] 08-26-2023 15:11-0400 Body mass index (BMI) [Ratio] 30.4 kg/m2 [facility] 08-26-2023 15:11-0400 Body weight 85.5 kg [facility] 08-26-2023 15:11-0400 Diastolic blood pressure 65 mm[Hg] [facility] 08-26-2023 15:11-0400 Heart rate 121 /min [facility] 08-26-2023 15:11-0400 Systolic blood pressure 95 mm[Hg] [facility] 07-15-2023 12:00-0500 Diastolic blood pressure 56 mm[Hg] [address] 07-15-2023 12:00-0500 Heart rate 65 /min [address] 07-15-2023 12:00-0500 Respiratory rate 20 /min [address] 07-15-2023 12:00-0500 Systolic blood pressure 90 mm[Hg] [address] 07-15-2023 11:56-0500 SaO2% (BldA) [Mass fraction] 94 % [address] 07-01-2023 14:27-0500 Diastolic blood pressure 98 mm[Hg] Quan Hunter MD Work Phone: [facility] 07-01-2023 14:27-0500 Heart rate 110 /min Quan Hunter MD Work Phone: [facility] 07-01-2023 14:27-0500 Systolic blood pressure 124 mm[Hg] Quan Hunter MD Work Phone: [facility] 06-13-2023 12:53-0500 Body height 162.[address] 06-13-2023 12:53-0500 Body mass index (BMI) [Ratio] 32.61 kg/m2 [address] 06-13-2023 12:53-0500 Body weight 86.[address] 06-13-2023 12:53-0500 Diastolic blood pressure 60 mm[Hg] [address] 06-13-2023 12:53-0500 Systolic blood pressure 110 mm[Hg] [address] 05-27-2023 14:04-0500 Body height 162.6 cm Quan Hunter MD Work Phone: [facility] 05-27-2023 14:04-0500 Body mass index (BMI) [Ratio] 32.77 kg/m2 Quan Hunter MD Work Phone: [facility] 05-27-2023 14:04-0500 Body weight 86.59 kg Quan Hunter MD Work Phone: [facility] 05-27-2023 14:04-0500 Diastolic blood pressure 82 mm[Hg] Quan Hunter MD Work Phone: [facility] 05-27-2023 14:04-0500 Heart rate 112 /min Quan Hunter MD Work Phone: [facility] 05-27-2023 14:04-0500 Systolic blood pressure 122 mm[Hg] Quan Hunter MD Work Phone: [facility] 03-13-2023 15:30-0400 Body height 167.64 cm Maureen Mitchell Other [facility] Other 03-13-2023 15:30-0400 Body mass index (BMI) [Ratio] 30.99 kg/m2 Maureen Mitchell Other [facility] Other 03-13-2023 15:30-0400 Body weight 87.09 kg Maureen Mitchell Other [facility] Other 03-13-2023 15:30-0400 Diastolic blood pressure 67 mm[Hg] Maureen Mitchell Other [facility] Other 03-13-2023 15:30-0400 Systolic blood pressure 106 mm[Hg] Maureen Mitchell Other [facility] Other 07-30-2022 15:45-0500 Body height 167.64 cm Maureen Mitchell Other [facility] Other 07-30-2022 15:45-0500 Body mass index (BMI) [Ratio] 33.25 kg/m2 Maureen Mitchell Other [facility] Other 07-30-2022 15:45-0500 Body weight 93.44 kg Maureen Mitchell Other [facility] Other 07-30-2022 15:45-0500 Diastolic blood pressure 92 mm[Hg] Maureen Mitchell Other [facility] Other 07-30-2022 15:45-0500 Systolic blood pressure 158 mm[Hg] Maureen Mitchell Other [facility] Other 11-23-2021 14:27-0400 Blood Pressure Location Ibrahima PANDYAL [facility] [place] 11-23-2021 14:27-0400 Diastolic blood pressure 86 mm[Hg] Ibrahima NILL [facility] [place] 11-23-2021 14:27-0400 Heart rate 72 /min Ibrahima NILL [facility] [place] 11-23-2021 14:27-0400 Respiratory rate 16 /min Ibrahima NILL [facility] [place] 11-23-2021 14:27-0400 Systolic blood pressure 126 mm[Hg] Ibrahima GONZALEZ [facility] [place] Encounters Encounter Date Encounter Type Care Provider Facility Start: 01-30-2024 End: 01-30-2024 ambulatory [facility] Work Phone: Start: 01-30-2024 End: 01-30-2024 Patient encounter procedure [facility] Work Phone: Start: 01-20-2024 End: 01-20-2024 ambulatory [facility] Work Phone: Start: 01-20-2024 End: 01-20-2024 Patient encounter procedure [facility] Work Phone: Start: 01-12-2024 Non-patient / Non-visit [facility] Work Phone: Start: 01-12-2024 End: 01-12-2024 ambulatory Bhupinder Shelton MD Facility: [place] Start: 01-06-2024 End: 01-11-2024 Evaluation and management of inpatient [facility]ARUN BAR[facility] Start: 01-06-2024 Non-patient / Non-visit [facility] Work Phone: Start: 12-30-2023 End: 01-05-2024 Evaluation and management of inpatient SHAIKH ANA PAULA [facility] Start: 12-30-2023 Non-patient / Non-visit [facility] Work Phone: Start: 12-29-2023 Non-patient / Non-visit [facility] Work Phone: Start: 12-29-2023 End: 12-29-2023 ambulatory Ibrahima GONZALEZ Facility::[id number] Start: 12-28-2023 End: 12-30-2023 Non-patient / [facility]visit [facility] Work Phone: Start: 12-28-2023 Non-patient / Non-visit [facility] Work Phone: Start: 12-18-2023 End: 12-18-2023 ambulatory [facility] Work Phone: Start: 12-18-2023 End: 12-18-2023 Patient encounter procedure [facility] Work Phone: Start: 12-11-2023 End: 12-11-2023 ambulatory [facility] Work Phone: Start: 12-11-2023 End: 12-11-2023 Patient encounter procedure [facility] Work Phone: Start: 11-11-2023 End: 11-11-2023 ambulatory DARLENE Pabon WANDA Not Available Start: 11-10-2023 Non-patient / Non-visit [facility] Work Phone: Start: 11-10-2023 Non-patient / Non-visit [facility] Work Phone: Start: 10-22-2023 End: 10-22-2023 ambulatory DOROTHY B APLING Not Available Start: 10-22-2023 End: 10-22-2023 ambulatory DOROTHY B APLING Not Available Start: 10-14-2023 End: 10-14-2023 ambulatory [facility] Work Phone: Start: 10-14-2023 End: 10-14-2023 Patient encounter procedure [facility] Work Phone: Start: 09-22-2023 End: 09-22-2023 ambulatory [facility] Work Phone: Start: 09-22-2023 End: 09-22-2023 Patient encounter procedure [facility] Work Phone: Start: 09-12-2023 End: 09-12-2023 ambulatory [facility] Work Phone: Start: 09-12-2023 End: 09-12-2023 Patient encounter procedure [facility] Work Phone: Start: 09-03-2023 Non-patient / Non-visit [facility] Work Phone: Start: 08-26-2023 End: 08-26-2023 ambulatory [facility] Work Phone: Start: 08-26-2023 End: 08-26-2023 Patient encounter procedure [facility] Work Phone: Start: 07-23-2023 Non-patient / Non-visit [facility] Work Phone: Start: 07-23-2023 Non-patient / Non-visit [facility] Work Phone: Start: 07-15-2023 End: 07-15-2023 Subsequent hospital visit by physician Jyotsna Herrera[address] [facility] Comment on above: Essential hypertensi on; Shortness of breath; Angina pectoris, unstable (CMS/HCC) Start: 07-15-2023 End: 07-15-2023 ambulatory [facility] Start: 07-07-2023 End: 07-07-2023 ambulatory Maureen Mitchell Other [facility] [employer] Other Start: 07-07-2023 Telephone encounter Maureen Mitchell [facility] Start: 07-01-2023 End: 07-01-2023 ambulatory [facility] Start: 07-01-2023 End: 07-01-2023 Office outpatient visit 25 minutes Quan Hunter MD Work Phone: [facility] Comment on above: Angina pectoris, uns table (CMS/HCC) (Primary Dx); Dilation of aorta (CMS/HCC); Essential hypertension; Heart valve disease; Shortness of breath; Smoker; BMI 32.0-32.9,adult Start: 06-19-2023 End: 06-19-2023 ambulatory Maureen Mitchell Other [employer] Other Start: 06-19-2023 Office outpatient vi sit 15 minutes Maureen Mitchell [facility] Start: 06-13-2023 End: 06-13-2023 Subsequent hospital visit by physician Jyotsna Alcala305 Echo/Vasc 3 [facility] Comment on above: Shortness of breath; Heart valve disease; Dizziness; Dilation of aorta (CMS/HCC) Start: 06-13-2023 End: 06-13-2023 ambulatory [facility] Start: 06-02-2023 End: 06-02-2023 ambulatory Maureen Mitchell Other [facility] [employer] [facility] [employer] Other Start: 06-02-2023 Telephone encounter Maureen Mitchell [facility] Start: 05-27-2023 End: 05-27-2023 ambulatory [facility] Start: 05-27-2023 End: 05-27-2023 Office outpatient new 45 minutes Quan Hunter MD Work Phone: [facility] Comment on above: Shortness of breath; Essential hypertension; BMI 32.0-32.9,adult; Smoker; Heart valve disease; Dizziness; Dilation of aorta (CMS/HCC) Start: 05-15-2023 End: 05-15-2023 ambulatory Maureen Mitchell Other [facility] [employer] Other Start: 05-15-2023 Telephone encounter Maureen Mitchell [facility] Start: 05-01-2023 End: 05-01-2023 ambulatory Maureen Mitchell Other [facility] [employer] Other Start: 05-01-2023 Telephone encounter Maureen Mitchell [facility] Start: 04-21-2023 End: 04-21-2023 ambulatory Maureen Mando Other [employer] Other Start: 04-21-2023 Telephone encounter Maureen Mando [facility] Start: 04-03-2023 (Televisit) Televisit Maureen Mitchell [facility] Start: 04-03-2023 End: 04-03-2023 ambulatory Maureen Mando Other [employer] Other Start: 04-03-2023 Telephone encounter Maureen Mitchell [facility] Start: 04-01-2023 End: 04-01-2023 ambulatory Maureen Mando Other [facility] [employer] [facility] [employer] Other Start: 04-01-2023 Telephone encounter Maureen Mitchell [facility] Start: 03-13-2023 End: 03-13-2023 ambulatory Maureen Mando Other [employer] Other Start: 03-13-2023 Office outpatient vi sit 25 minutes Maureen Mitchell [facility] Start: 03-13-2023 Telephone encounter Maureen Mitchell [facility] Start: 02-13-2023 End: 02-13-2023 ambulatory Maureen Mando Other [facility] [employer] [facility] [employer] Other Start: 02-13-2023 Telephone encounter Maureen Mitchell [facility] Start: 01-30-2023 End: 01-30-2023 ambulatory Maureen Mando Other [facility] [employer] [facility] [employer] Other Start: 01-30-2023 Telephone encounter Maureen Mitchell [facility] Start: 01-16-2023 End: 01-16-2023 ambulatory Maureen Mando Other [facility] [employer] [facility] [employer] Other Start: 01-16-2023 Telephone encounter Maureen Mitchell [facility] Start: 12-31-2022 End: 12-31-2022 ambulatory Maureen Mando Other [facility] [employer] Other Start: 12-31-2022 Telephone encounter Maureen Mitchell [facility] Start: 12-06-2022 End: 12-06-2022 ambulatory Maureen Mitchell Other [employer] Other Start: 12-06-2022 Telephone encounter Maureen Mitchell [facility] Start: 11-18-2022 End: 11-18-2022 ambulatory Maureen Mitchell Other [facility] [employer] Other Start: 11-18-2022 Telephone encounter Maureen Mitchell [facility] Start: 11-06-2022 End: 11-06-2022 ambulatory Maureen Mitchell Other [facility] [employer] Other Start: 11-06-2022 Telephone encounter Maureen Mitchell [facility] Start: 09-19-2022 End: 09-19-2022 ambulatory Maureen Mitchell Other [facility] [employer] Other Start: 09-19-2022 Telephone encounter Maureen Mitchell [facility] Start: 09-10-2022 End: 09-10-2022 ambulatory Maureen Mitchell Other [facility] [employer] [facility] [employer] Other Start: 09-10-2022 Telephone encounter Maureen Mitchell [facility] Start: 08-22-2022 End: 08-22-2022 ambulatory Maureen Mitchell Other [facility] [employer] Other Start: 08-22-2022 Telephone encounter Maureen Mitchell [facility] Start: 08-19-2022 End: 08-19-2022 ambulatory Otoniel Kelly Other [employer] [facility] [employer] Other Start: 08-19-2022 Telephone encounter Otoniel Kelly [employer] Start: 07-30-2022 End: 07-30-2022 ambulatory Maureen Mitchell Other [facility] [employer] [facility] [employer] Other Start: 07-30-2022 Office outpatient vi sit 25 minutes Maureen Mitchell [facility] Start: 07-25-2022 End: 07-25-2022 ambulatory Maureen Mitchell Other [facility] [employer] [facility] [employer] Other Start: 07-25-2022 Telephone encounter Maureen Mitchell [facility] Start: 07-24-2022 End: 07-24-2022 ambulatory Maureen Mitchell Other [facility] [employer] [facility] [employer] Other Start: 07-24-2022 Telephone encounter Maureen Mitchell [facility] Start: 03-29-2022 End: 03-30-[address] MAUREEN MITCHELL Facility:[facility] Start: 03-29-2022 Adult health examination Maureen Mitchell Other [employer] Other Start: 03-25-2022 End: 03-26-[address] MAUREEN MITCHELL Facility:[facility] Start: 12-28-2021 End: 01-15-2022 ambulatory MAUREEN MITCHELL Facility:[facility] Start: 12-05-2021 Encounter for genera l adult medical examination without abnormal findings DR MAUREEN MITCHELL [facility] Start: 12-04-2021 End: 12-05-[address] IBRAHIMA GONZALEZ Facility:[facility] Start: 12-04-2021 End: 12-05-2021 Encounter for general adult medical examination without abnormal findings DR MAUREEN MITCHELL Facility:[facility] Start: 11-23-2021 End: 11-23-2021 Patient encounter procedure Ibrahima GONZALEZ [facility] [place] Start: 11-03-2021 End: 11-03-[address] CHONG GUTIERREZ Facility:[facility] Start: 02-09-2018 End: 02-09-2018 Patient encounter PATRICK Isaias [facility] Start: 02-06-2018 End: 02-11-2018 [facility] Procedures Date Procedure Procedure Detail Performing Clinician Start: 12-28-2023 Blood Culture 1 Start: 12-28-2023 Blood Culture 2 Start: 07-15-2023 CT ANGIO CORONARY ART WITH [...] Start: 02-09-2018 FLUORO FOR SURGICAL PROCEDURES PATRICK RJEI Start: 02-09-2018 ASSESS PATRICK REJI Start: 02-09-2018 [...] CULTURE PATRICK REJI Start: 05-26-2017 Colonoscopy Ibrahima PANDYAL Start: 05-26-2017 Esophagogastroduodenoscopy Ibrahima NILL Start: 02-09-2016 Substance abuse counseling Maureen Mitchell Other Start: 09-20-2014 General examination of patient Maureen Poole paolo Other Start: 09-20-2014 Screening mammography Maureen Mitchell Other Appendectomy Ibrahima NILL Circumferential body lift Mi sybil NILL Excision of lumbar intervertebral disc Ibrahima NILL Comment on above: L4-L5 Exploratory laparotomy Marty sincere YAL Linsey-en-Y gastrojejunostomy Ibrahima NILL Screening for malign ant neoplasm of breast Maureen Mitchell Other Total abdominal hyst erectomy with bilateral salpingo-oophorectomy Ibrahima NILL Plan of Treatment Date Care Activity Detail Author Start: 01-20-2024 Patient referral [facility] Work Phone: Start: 12-18-2023 Patient referral [facility] Work Phone: Start: 09-30-2023 End: 09-30-2023 Patient encounter procedure 09/30/2023 10:00 AM EDT Office Visit [facility] [address] [phone] Quan Hunter MD [address] [facility] [address] [id number] [facility] Start: 07-01-2023 End: 07-01-2024 CTA Heart and Coronary arteries WO and W contrast IV CT angio coronary art with heartflow if score >30% Imaging Routine Essential hypertension Shortness of breath Angina pectoris, unstable (CMS/HCC) Expected: 07/01/2023 (Approximate), Expires: 07/01/2024 [facility] Service Area Work Phone: Comment on above: Expected: 07/01/2023 (Approximate), Expires: 07/01/2024 Start: 07-01-2023 End: 07-01-2023 Patient encounter procedure 07/01/2023 2:00 PM EST Office Visit [facility] [address] [phone] Quan Hunter MD [address] [facility] [address], [address] [place], [place] [id number] [facility] Start: 05-27-2023 End: 05-27-2024 CT Chest WO contrast CT chest wo IV contrast Imaging Routine Heart valve disease Dilation of aorta (CMS/HCC) Expected: 05/27/2023 (Approximate), Expires: 05/27/2024 [place] [facility] Work Phone: Comment on above: Expected: 05/27/2023 (Approximate), Expires: 05/27/2024 Start: 05-27-2023 End: 05-27-2025 US Heart Transthoracic Transthoracic Echo (TTE) Complete Echocardiography Routine Shortness of breath Heart valve disease Dizziness Dilation of aorta (CMS/HCC) Expected: 05/27/2023 (Approximate), Expires: 05/27/2025 [facility] Service Area Work Phone: Comment on above: Expected: 05/27/2023 (Approximate), Expires: 05/27/2025 Start: 01-24-2023 COVID-19 Vaccine () COVID-19 Vaccine () [facility] Start: 01-24-2023 Influenza vaccination Influenza Vacc ine (#1) [facility] Start: 07-08-2021 COVID-19 Vaccine (4 - Pfizer series) COVID-19 Vaccine (4 - Pfizer series) [facility] Start: 2018 Zoster Vaccines (1 o f 2) Zoster Vaccines (1 of 2) [facility] Start: 2008 Screening for malign ant neoplasm of breast Mammogram [facility] Start: 05-17-1997 DTaP/Tdap/Td Vaccine s (1 - Tdap) DTaP/Tdap/Td Vaccines (1 - Tdap) [facility] Start: 1989 Screening for malign ant neoplasm of cervix [facility] Start: 1986 Diabetes mellitus screening Diabetes Screening [facility] Start: 1986 Hepatitis C screening Hepatitis C Sc reening [facility] Start: 1974 Pneumococcal Vaccine : Pediatrics (0 to 5 Years) and At-Risk Patients (6 to 64 Years) (1 - PCV) Pneumococcal Vaccine: Pediatrics (0 to 5 Years) and At-Risk Patients (6 to 64 Years) (1 - PCV) [facility] Start: 1968 HIV screening HIV Screening [facility] Start: 1968 Lipid panel Lipid Panel [facility] Start: 1968 Screening for malign ant neoplasm of colon [facility] Start: 1968 Screening for osteoporosis Bone Density Scan [facility] Start: 1968 Yearly Adult Physical Yearly Adult P hysical [facility] Comprehensive metabo lic 2000 panel - Serum or Plasma [facility] MR Brain WO contrast [facility] Patient Education Low back pain in adults [facility] Work Phone: Patient referral [facility] Work Phone: [facility] Immunizations Immunization Date Immunization Notes Care Provider Fa sukumar 05-13-2021 influenza virus vaccine, unspecified formulation Quan Hunter MD Work Phone: [facility] Work Phone: 03-30-2021 COVID-19 Vaccine Pfi zer - Documentation Purposes Only Maureen Mitchell Other [facility] 08-02-2020 COVID-19 Vaccine Pfi zer - Documentation Purposes Only Maureen Mitchell Other [facility] 04-28-2020 influenza virus vaccine, split virus (incl. purified surface antigen) Maureen Mitchell Other [facility] Other 04-28-2020 influenza virus vaccine, unspecified formulation [facility] 03-06-2016 influenza virus vaccine, split virus (incl. purified surface antigen) Maureen Mitchell Other [facility] Other 03-06-2016 influenza virus vaccine, unspecified formulation [facility] Payers Date Payer Category Payer Private Health Insurance [id number] 2023 Medicare 2022 Medicare [id number] 2.1 [id number] 2022 Private Health Insurance [id number] 2022 Private Health Insurance [id number] 2014 Unknown [id number] 1968 Unknown [id number] 2.16.8 40.1.567083.3.579.2.647 1968 Unknown [id number] 2.16.84 0.1.853846.3.579.2.593 1968 Unknown [id number] 2.16.84 0.1.814806.3.579.2.593 1968 Unknown [id number] 2.16.84 0.1.796417.3.579.2.593 1968 Unknown [id number] 2.16.84 0.1.730230.3.579.2.593 1968 Unknown [id number] 2.16.84 0.1.144846.3.579.2.593 1968 Unknown [id number] 2.16.8 40.1.971519.3.579.2.4 1968 Unknown [id number] 2.16.8 40.1.356395.3.579.2.1244 1968 Unknown [id number] 2.16.84 0.1.169501.3.579.2.9 1968 Unknown [id number] 2.16.84 0.1.399437.3.579.2.1258 1968 Unknown [id number] 2.16.84 0.1.969208.3.579.2.1258 1968 Unknown [id number] 2.16.84 0.1.484150.3.579.2.9 1968 Unknown [id number] 2.16.84 0.1.293873.3.579.2.1258 1968 Unknown [id number] 2.16.84 0.1.048603.3.579.2.1258 1968 Unknown [id number] 2.16.8 40.1.621937.3.579.2.1245 1968 Unknown [id number] 2.16.84 0.1.897599.3.579.2.1245 1968 Unknown [id number] 2.16.8 40.1.084612.3.579.2.727 1968 Unknown [id number] 2.16. 840.1.900098.3.579.2.175 1968 Unknown [id number] 2.16. 840.1.965003.3.579.2.175 1968 Unknown [id number] 2.16. 840.1.183501.3.579.2.196 1959 Private Health Insurance [id number] Private Health Insurance [id number] Self-pay Self Pay [id number] Social History Date Type Detail Facility Start: 11-23-2021 Tobacco smoking status Heavy t obacco smoker (finding) [facility] [place] Tobacco smoking status Never [facility] [place] Start: 05-27-2023 End: 07-01-2023 Sex Assigned At Female [facility] [place] Start: 05-27-2023 End: 09-22-2023 Tobacco smoking status NHIS Occasional tobacco smoker [facility] Work Phone: History of tobacco use Cigarette Smoker U [facility] Work Phone: Start: 05-27-2023 End: 07-01-2023 Cigarettes smoked current (pack per day) - Reported 0.5 [facility] Work Phone: Start: 05-27-2023 Tobacco use and exposure Smokeless tobacco non-user [facility] Work Phone: Start: 05-27-2023 Alcohol intake Not Asked [facility] Work Phone: Start: 05-27-2023 Alcohol Comment rarely [facility] Work Phone: Start: 1970 Sex Assigned At Not on file [facility] Work Phone: Start: 05-17-2023 End: 07-15-2023 Exposure to SARS-CoV-2 (event) Not sure [facility] Start: 07-01-2023 Alcohol intake Current drinke r of alcohol (finding) [facility] Work Phone: Start: 06-28-2023 Tobacco smoking stat us NHIS Smoker (finding) [facility] Start: 1970 Sex Assigned At Female F [facility] Functional Status Date Assessment Result Facility 11-23-2021 Functional Status N/A [facility] [place] Clinical Notes 10-11-2020 to 01-02-2024 Result Encounter [...] for a 0.035 inch wire and 5 [place] introducer sheath. A 5 [place] Bren catheter was then used to selectively catheterize the celiac artery and digital angiography was performed in AP and oblique projections. Subsequently, several different catheters were used to attempt selective catheterization of the left gastric artery, ultimately successful with a 5 [place] Cobra catheter. Digital angiography of the left gastric artery was then performed. The catheters were then removed, and the left groin common femoral artery sheath was sewn in place and attached to a pressure bag. A standard right groin dressing was placed. FINDINGS: Normal celiac artery anatomy. Extensive postsurgical changes left upper quadrant with multiple surgical clips status post reported Linsey-en-Y gastric bypass surgery. Selective angiography left gastric [...] by: Nasir Martinez MD 01/02/24 Final result [facility] 07-15-2023 Miscellaneous Notes CTA shows very minimal atherosclerosis with no significant stenosis. Recommend routine follow-up and continue to current treatment. documented in this encounter [facility] Work Phone: 07-15-2023 Nurse Note [...] DC home to self care with family [facility] Work Phone: 07-15-2023 Nurse Note [...] her chest hurt documented in this encounter [facility] Work Phone: 07-15-2023 Nurse Note [...] her chest hurt documented in this encounter [facility] Work Phone: 07-15-2023 Progress note Formatting of t his note might be different from the original. CTA shows very minimal atherosclerosis with no significant stenosis. Recommend routine follow-up and continue to current treatment. [facility] Work Phone: 07-15-2023 Nurse Note Pt. Unable to tolerate deep breathing excercises for HR control. She states that holding her breath makes her chest hurt [facility] Work Phone: 07-07-2023 Evaluation note Encounter Date Diagnosis Assessment Notes Jun, Lumbar degenerative disc disease (ICD-10 - M51.36) Jun, Medication management (ICD-10 - Z79.899) [facility] Other 02-06-2024 History of Present illness Narrative* [...] person, place and time. [facility]: 1(387) 717-791202-06-2024 Instructions* Patient Instructions* Paulo Bucio LPN - 07/01/2023 2:[address] Angio Stop carvedilol Start Metoprolol XL 25 mg BID 3 month [facility]: 1(571) 729-633201-25-2024 Evaluation note* Encounter Date Diagnosis Assessment Notes Treatment Notes Treatment Clinical Notes May, Lumbar degenerative disc disease (ICD-10 - M51.36) OARRS reviewed Medications refilled Refer to Dr. Gonzalez per patient's request. May, Anxiety disorder, unspecified (ICD-10 - F41.9) Medications refilled. [facility] Other 01-08-2024 Evaluation note* Encounter Date Diagnosis Assessment Notes Treatment Notes Treatment Clinical Notes May, Lumbar degenerative disc disease (ICD-10 - M51.36) May, Anxiety disorder, unspecified (ICD-10 - F41.9) [facility] Other 01-02-2024 History of Present illness Narrative* [...] person, place and time. documented [facility] Work Phone: 1(723) 344-920101-02-2024 Instructions* Patient Instructions* Paulo Bucio LPN - 05/27/2023 1:45 PM EST Follow up after testing CT Thoracic Echo [facility] Work Phone: 1(670) 188-927912-07-2023 Evaluation note* Encounter Date Diagnosis Assessment Notes Treatment Notes Treatment Clinical Notes Apr, Lumbar degenerative disc disease (ICD-10 - M51.36) [facility] Other 11-09-2023 Evaluation note* Encounter Date Diagnosis [...] to go to ER by calling 911. [facility] Other 11-07-2023 Evaluation note* Encounter Date Diagnosis Assessment Notes Treatment Notes Treatment Clinical Notes Mar, Lumbar degenerative disc disease (ICD-10 - M51.36) [facility] Other 10-19-2023 Evaluation note* Encounter Date Diagnosis Assessment Notes Treatment Notes Treatment Clinical Notes Feb, Anxiety disorder, unspecified (ICD-10 - F41.9) Chronic problem list refill Xanax. Patient states Xanax does completely resolve her symptoms reviewed OARRS report. Feb, Lumbar degenerative disc disease (ICD-10 - M51.36) We will request records from pain management at [place] as far as the MRI and upcoming treatment plan. Reviewed OARRS report. Discussed decreasing amount or frequency of oxycodone. Patient defers to have an upcoming MRI and plan of treatment through pain management. We will monitor further symptoms of overdosing carefully. Feb, Vitamin D deficiency (ICD-10 - E55.9) Lab order sent to [facility] per patient's request Feb, Iron deficiency anemia, unspecified iron deficiency anemia type (ICD-10 - D50.9) As above lab order sent to [facility]. Previously under the care of of Dr. Bañuelos at [facility] cancer Feb, Medication management (ICD-10 - Z79.899) Monitor kidney and liver function based on her chronic medications. [facility] Other 09-21-2023 Evaluation note* Encounter Date Diagnosis Assessment Notes Treatment Notes Treatment Clinical Notes Jan, Anxiety disorder, unspecified (ICD-10 - F41.9) [facility] Other 09-07-2023 Evaluation note* Encounter Date Diagnosis Assessment Notes Treatment Notes Treatment Clinical Notes Jan, Lumbar degenerative disc disease (ICD-10 - M51.36) [facility] Other 08-24-2023 Evaluation note* Encounter Date Diagnosis Assessment Notes Treatment Notes Treatment Clinical Notes Dec, Anxiety disorder, unspecified (ICD-10 - F41.9) [facility] Other 08-08-2023 Evaluation note* Encounter Date Diagnosis Assessment Notes Treatment Notes Treatment Clinical Notes Dec, Lumbar degenerative disc disease (ICD-10 - M51.36) [facility] Other 07-14-2023 Evaluation note* Encounter Date Diagnosis Assessment Notes Treatment Notes Treatment Clinical Notes Nov, Lumbar degenerative disc disease (ICD-10 - M51.36) [facility] Other 06-14-2023 Evaluation note* Encounter Date Diagnosis Assessment Notes Treatment Notes Treatment Clinical Notes Oct, Lumbar degenerative disc disease (ICD-10 - M51.36) [facility] Other 04-27-2023 Evaluation note* Encounter Date Diagnosis Assessment Notes Treatment Notes Treatment Clinical Notes Aug, Left foot pain (ICD-10 - M79.672) Aug, Migraine without status migrainosus, not intractable, unspecified migraine type (ICD-10 - G43.909) Aug, Anxiety disorder, unspecified (ICD-10 - F41.9) Aug, Depression, unspecified (ICD-10 - F32.A) [facility] Other 04-18-2023 Evaluation note* Encounter Date Diagnosis Assessment Notes Treatment Notes Treatment Clinical Notes Aug, Lumbar degenerative disc disease (ICD-10 - M51.36) [facility] Other 03-07-2023 Evaluation note* Encounter Date Diagnosis [...] Pain in left leg (ICD-10 - M79.605) [facility] Other 03-07-2023 Evaluation note* Encounter Date Diagnosis [...] bandaid and further cushioning on L elbow. [facility] Other 06-16-2021 NoteHNO ID: [id number] Author: Hai Matute APRN.AUTOMATIC BRINE MIXER OPERATOR Service: ? Author Type: Nurse Practitioner Type: Progress Notes Filed: 11/08/2020 3:37 PM Note Text: NAME: Candy Booth CLINIC NO.: [id number] DATE OF SERVICE: November 08, 2020 Referring [...] endoscopy. 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 She has primary complaints of fatigue but [...] as needed. sertraline ( (more content not included)...[facility]05-19-2021 NoteHNO ID: [id number] Author: Jay Amaya MD Service: ? Author Type: Physician Type: Progress Notes Filed: 10/21/2020 6:59 PM Note Text: NAME: Candy Booth NO.: [id number] DATE OF SERVICE: October 11, 2020 Referring [...] endoscopy. 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 She has primary complaints of fatigue but [...] mg tablet Take 1 (more content not included)...[facility] No data available for this section General Surgery [facility] Evaluation noteNo InformationNomosaic [facility] Other Evaluation noteHoliday Propane [facility] Other Evaluation note* Diagnosis Shortness of breath Essential hypertension Unspecified essential hypertension BMI 32.0-32.9,adult Smoker Tobacco use disorder Heart valve disease Endocarditis, valve unspecified, unspecified cause Dizziness Dizziness and giddiness Dilation of aorta (CMS/HCC) documented in this encounter [facility] Work Phone: Evaluation note* Diagnosis Shortness of breath Heart valve disease Endocarditis, valve unspecified, unspecified cause Dizziness Dizziness and giddiness Dilation of aorta (CMS/HCC) documented in this encounter [facility] Work Phone: Evaluation note* Diagnosis Angina pectoris, unstable (CMS/HCC)- Primary Intermediate coronary syndrome Dilation of aorta (CMS/HCC) Essential hypertension Unspecified essential hypertension Heart valve disease Endocarditis, valve unspecified, unspecified cause Shortness of breath Smoker Tobacco use disorder BMI 32.0-32.9,adult documented in this encounter [facility] Work Phone: Evaluation note* Diagnosis Essential hypertension Unspecified essential hypertension Shortness of breath Angina pectoris, unstable (CMS/HCC) Intermediate coronary syndrome documented in this encounter [facility] Work Phone: Evaluation note* Diagnosis Essential hypertension Unspecified essential hypertension Shortness of breath Angina pectoris, unstable (CMS/HCC) Intermediate coronary syndrome documented in this encounter [facility] Work Phone: Evaluation note* Diagnosis Onset Date Resolution Status Edema acute HTN (hypertension) acute [facility] Work Phone: Evaluation note* Diagnosis Onset Date Resolution Status Anxiety acute Chronic lumbar pain acute Edema acute HTN (hypertension) acute Lumbar degenerative disc disease acute Peripheral neuropathic pain acute Skin ulcer of elbow acute Anxiety acute Chronic pain syndrome acute Encounter for palliative care acute Peripheral neuropathic pain acute [facility] Work Phone: Evaluation note* Diagnosis Onset Date Resolution Status Anxiety acute Chronic lumbar pain acute Edema acute HTN (hypertension) acute Lumbar degenerative disc disease acute Peripheral neuropathic pain acute Skin ulcer of elbow acute Anxiety acute Chronic pain syndrome acute Encounter for palliative care acute Anxiety acute Chronic pain syndrome acute [facility] Work Phone: Evaluation note* Diagnosis Onset Date Resolution Status Anxiety acute Chronic lumbar pain acute Edema acute HTN (hypertension) acute Lumbar degenerative disc disease acute Peripheral neuropathic pain acute Skin ulcer of elbow acute Anxiety acute Chronic pain syndrome acute Encounter for palliative care acute Anxiety acute Chronic pain syndrome acute Chronic pain syndrome acute Peripheral neuropathic pain acute [facility] Work Phone: Evaluation note* Diagnosis Onset Date Resolution Status Anxiety acute Chronic pain syndrome acute Anxiety acute Chronic pain syndrome acute Depression acute Impaired mobility and ADLs a cute Peripheral neuropathic pain acute Anxiety acute Chronic pain syndrome acute Depression acute Peripheral neuropathic pain acute [facility] Work Phone: Evaluation note* Diagnosis Onset Date Resolution Status Anxiety acute Chronic pain syndrome acute Anxiety acute Chronic pain syndrome acute Depression acute Impaired mobility and ADLs a cute Peripheral neuropathic pain acute Anxiety acute Chronic pain syndrome acute [facility] Work Phone: Evaluation note* Diagnosis Onset Date Resolution Status Anxiety acute Chronic pain syndrome acute Acute parotitis acute Lumbar degenerative disc disease acute Peripheral neuropathic pain acute Anemia due to blood loss acu te [facility] Work Phone: Evaluation note* Diagnosis Onset Date Resolution Status Anxiety acute Chronic pain syndrome acute Acute parotitis acute Lumbar degenerative disc disease acute Peripheral neuropathic pain acute Anemia due to blood loss acu te Chronic gastrojejunal anastomotic ulcer acute Weakness acute [facility] Work Phone: History general Narrative - [...] Surgical History diskectomy Hospitalization History see above [facility] Other History general Narrative - ReportedNom[facility] Other Hospital Discharge instructions No data available for this section General Surgery [facility] Progress note No data available for this section [facility] Reason for visit Narrativereferral for pain management / [place] [facility] Other Summary Purpose Family History Relationship Condition [...] score >30% Quan Hunter MD [address] [place] [address] Referral ID Status Reason Start Date Expiration Date Visits Requested Visits Authorized [id number] Pending Review Perform Procedure 07/01/2023 06/30/2024 1 1 Reason *FU 07/07 Lumbar D DD and radiculopathy Diagnosis 1 Lumbar degenerative disc disease (M51.36) Referral Organization [facility] Referring Provider First Name Maureen Referring Provider Last Name Mando Referring Provider Specialty [facility] Referred Organization [facility] Referred Provider Darlene Gonzalez Referred Address ,[place], [place],[address] Referred Provider Specialty Orthopedic S urgery Referral Priority Routine General Notes Joselyn Zee 12:44:56 PM >received today, notes locked, attachments made, referral faxed Specialty Diagnoses / Procedures Referred By Norberto abernathy Referred To Contact Radiology Diagnoses Heart valve disease Dilation of aorta (CMS/HCC) Procedures CT chest wo IV contrast Quan Hunter MD [address] [facility], [address] [address] Referral ID Status Reason Start Date Expiration Date Visits Requested Visits Authorized [id number] Pending Review Perform Procedure 05/27/2023 05/26/2024 1 1 Specialty Diagnoses / Procedures Referred By Norberto abernathy Referred To Contact Cardiology Diagnoses Shortness of breath Heart valve disease Dizziness Dilation of aorta (CMS/HCC) Procedures Transthoracic Echo (TTE) Complete MT ECHO TTHRC R-T 2D W/WOM-MODE COMPL SPEC&COLR D Quan Hunter MD [address] [facility], [address] [address] Referral ID Status Reason Start Date Expiration Date Visits Requested Visits Authorized [id number] Pending Review Perform Procedure 05/27/2023 05/26/2024 1 [...] Peripheral neuropathic pain Anxiety Chronic pain syndrome Chief Complaint Patient here for a 2 month f/u in office painful bump behind ear Hospital f/u Reason for Visit Anxiety Chronic pain syndrome Acute parotitis Lumbar degenerative disc disease Peripheral neuropathic pain Anemia due to blood loss Chief Complaint Patient here for a 2 month f/u in office painful bump behind ear Hospital f/u cellulitis in L foot Reason for Visit Anxiety Chronic pain syndrome Acute parotitis Lumbar degenerative disc disease Peripheral neuropathic pain Anemia due to blood loss Chronic gastrojejunal anastomotic ulcer Weakness Additional Source Comments INFORMATION SOURCE (unrecogn ized section and content) DATE CREATED AUTHOR 03/09/2018 [facility] DATE CREATED AUTHOR AUTHOR'S ORGANIZ ATION 08/07/2021 [facility] DATE CREATED AUTHOR AUTHOR'S ORGANIZ ATION 08/17/2021 [facility] DATE CREATED AUTHOR AUTHOR'S ORGANIZ ATION 01/18/2022 [facility] DATE CREATED AUTHOR AUTHOR'S ORGANIZ ATION 04/05/2022 [facility] DATE CREATED AUTHOR AUTHOR'S ORGANIZ ATION 07/06/2023 [facility] DATE CREATED AUTHOR AUTHOR'S ORGANIZ ATION 11/16/2023 [facility] DATE CREATED AUTHOR AUTHOR'S ORGANIZ ATION 12/11/2023 [facility] DATE CREATED AUTHOR AUTHOR'S ORGANIZ ATION 01/10/2024 [facility] DATE CREATED AUTHOR AUTHOR'S ORGANIZ ATION 01/13/2024 [facility] DATE CREATED AUTHOR AUTHOR'S ORGANIZ ATION 01/24/2024 [facility] Care Team (unrecognized sect ion and content) Team Status: Active Member Role Status Dates Maureen Mitchell MD Primary Care Provider Active Team Status: Active Member Role Status Dates Maureen Mitchell MD Primary Care Provider Active Start: November 10, 2023 Chong Gutierrez Attending Provider Active Start: November 10, 2023 Team Status: Active Member Role Status Dates Maureen Mitchell MD Primary Care Provider Active Start: November 10, 2023 Grzegorz Wilkins DO Attending Provider Active Sta rt: November 10, 2023 Team Status: Inactive Member Role Status Dates Maureen Mitchell MD Primary Care Provider Active Start: December 11, 2023 End: December 11, 2023 Thi Vidal APRN Attending Provider Active Start: December 11, 2023 End: December 11, 2023 Team Status: Inactive Member Role Status Dates Maureen Mitchell MD Primary Care Provide r, Attending Provider Active Start: December 18, 2023 End: December 18, 2023 Team Status: Active Member Role Status Dates Maureen Mitchell MD Primary Care Provider Active Start: December 28, 2023 Damaris Coffey DO Attending Provider Active Sta rt: December 28, 2023 Team Status: Active Member Role Status Dates Maureen Mitchell MD Primary Care Provider Active Start: December 29, 2023 Shaikh Ana Paula MD Attending Provider Active Sta rt: December 29, 2023 Team Status: Active Member Role Status Dates Maureen Mitchell MD Primary Care Provider Active Start: December 30, 2023 Shaikh Ana Paula MD Attending Provider Active Sta rt: December 30, 2023 Team Status: Active Member Role Status Dates Maureen iMtchell MD Primary Care Provider Active Start: January 06, 2024 Jayjay Oscar DO Attending Provider Active S tart: January 06, 2024 Team Status: Active Member Role Status Dates Maureen Mitchell MD Primary Care Provider Active Start: January 12, 2024 Isha Holley MD Attending Provider Active Sta rt: January 12, 2024 Team Status: Inactive Member Role Status Dates Maureen Mitchell MD Primary Care Provide r, Attending Provider Active Start: January 20, 2024 End: January 20, 2024 Team Status: Inactive Member Role Status Dates Maureen Mitchell MD Primary Care Provider Active Start: September 22, 2023 End: September 22, 2023 Thi iVdal APRN Attending Provider Active Start: September 22, 2023 End: September 22, 2023 Team Status: Inactive Member Role Status Dates Maureen Mitchell MD Primary Care Provider Active Start: October 14, 2023 End: October 14, 2023 Thi Vidal APRN Attending Provider Active Start: October 14, 2023 End: October 14, 2023 Analytics Associate Relationship Specialty Start Date End Date Maureen Mitchell MD [address] [place] [address] PCP - General Family Medicine 05/27/23 Analytics Associate Relationship Specialty Start Date End Date Maureen Mitchell MD [address] [place] [address] PCP - General Family Medicine 05/27/23 Analytics Associate Relationship Specialty Start Date End Date Maureen Mitchell MD [address] [place] [address] PCP - General Family Medicine 05/27/23 Quan Hunter MD [address] [facility], [address] [id number] Die Lay Out Worker Cardiology 06/17/23 Analytics Associate Relationship Specialty Start Date End Date Maureen Mitchell MD [address] [place] [address] PCP - General Family Medicine 05/27/23 Quan Hunter MD [address] [facility], [facility] [address] [place] [address] Die Lay Out Worker Cardiology 06/17/23 Analytics Associate Relationship Specialty Start Date End Date Maureen Mitchell MD [address] [place] [address] PCP - General Family Medicine 05/27/23 Quan Hunter MD [address] [facility], [facility] [address] [place] [address] Die Lay Out Worker Cardiology 06/17/23 Team Status: Active Member Role [...] 2023 End: September 12, 2023 Team Status: Active Member Role Status Dates Maureen Mitchell MD Primary Care Provider Active Start: December 28, 2023 End: December 30, 2023 Grzegorz Wilkins DO Attending Provider Active Sta rt: December 28, 2023 End: December 30, 2023 Team Status: Inactive Member Role Status Dates Maureen Mitchell MD Primary Care Provide r, Attending Provider Active Start: January 30, 2024 End: January 30, 2024 REASON FOR VISIT (unrecogniz ed section and content) Reason Comments New Patient Visit Specialty Diagnoses / Procedures Referred By Contac t Referred To Contact Cardiology Diagnoses Shortness of breath Heart valve disease Dizziness Dilation of aorta (CMS/HCC) Procedures Transthoracic Echo (TTE) Complete MT ECHO TTHRC R-T 2D W/WOM-MODE COMPL SPEC&COLR D Quan Hunter MD [address] [facility], [address] [address] Referral ID Status Reason Start Date Expiration Date Visits Requested Visits Authorized [id number] Authorized Perform Procedure 05/27/2023 05/26/2024 1 1 Reason Comments Patient here for follow up Echo Specialty Diagnoses / Procedures Referred By Contac t Referred To Contact Radiology Diagnoses Essential hypertension Shortness of breath Angina pectoris, unstable ([facility]/HCC) Procedures CT angio coronary art with heartflow if score >30% Quan Hunter MD [address] [facility], [address] [address] Referral ID Status Reason Start Date Expiration Date Visits Requested Visits Authorized [id number] Authorized Perform Procedure 07/01/2023 06/30/2024 1 1 [...] BE BASED ON THE PRIMARY CLINICAL RECORDS. Values of n. provides no warranty or guarantee of the accuracy or completeness of information in this document.
== END 2024-02-13 11:33 | disposition home or self-care (01) ==
LOC: EC 11:32
PROVIDERS: PCP Family Medicine; Visit Provider Orthopaedic Surgery Orthopaedic Surgery of the Spine
DX: M54.50 Low back pain, unspecified (principal); M51.36 Other intervertebral disc degeneration, lumbar region
CPT/HCPCS: 72110

== ENCOUNTER 2024-04-01 16:06 | Outpatient (OUT) | payer MEDICARE, OTHER, SELFPAY ==
--- NOTE | 2024-04-01 | XR_ITS ---
The [address] [address] Patient Name: RASHID BOOTH MRN: [id number] date: 1970 Sex: F Assigned Patient Location: LAB Current Patient Location: Accession/Order Number: [id number] Exam Date: 04/01/2024 16:45 Report Date: 04/02/2024 10:50 At the request of: MAHSA FULLER Procedure: XR chest 2V PROCEDURE: XR chest 2V DATE: 04/01/2024 4:45 PM EST COMPARISONS: 01/06/2024 CLINICAL INDICATION: 53 years Female Pre OP eval FINDINGS: The cardiomediastinal silhouette and pulmonary vasculature are within normal limits. The lungs are clear. There is no evidence of pleural effusion or pneumothorax. XR/XR chest 2V IMPRESSION: Chest radiograph is within normal limits. Electronically authenticated by: ALEXSANDER FERRERA Date: 04/02/2024 10:50
[2024-04-01 16:41] LABS: Basophils Absolute Auto 0.1 10^3/uL (0.0-0.1); Basophils Percent Auto 0.9 % (0.2-2.0); Eosinophils Absolute Auto 0.1 10^3/uL (0.0-0.7); Eosinophils Percent Auto 2.3 % (0.9-7.0); Hematocrit 38.5 % (36.0-48.0); Hemoglobin 12.3 g/dL (12.0-16.0); Lymphocytes Absolute Auto 2.4 10^3/uL (1.2-3.8); Lymphocytes Percent Auto 41.8 % (20.5-60.0); Mean Corpuscular HGB Conc 31.9 g/dL (29.9-35.2); Mean Corpuscular Hemoglobin 28.9 pg (26.7-34.0); Mean Corpuscular Volume 90.4 fL (81.0-99.0); Monocytes Absolute Auto 0.6 10^3/uL (0.3-0.8); Monocytes Percent Auto 10.5 % (1.7-12.0); Neutrophils Absolute Auto 2.6 10^3/uL (1.4-6.5); Neutrophils Percent Auto 44.5 % (43.0-75.0); Platelet Count 263 10^3/uL (150-450); Red Blood Count 4.26 10^6/uL (4.20-5.40); Red Cell Distribution Width 15.2 % (11.0-15.0); White Blood Count 5.7 10^3/uL (4.0-11.0)
[2024-04-01 17:08] LABS: INR 0.95; Partial Thromboplastin Time 27.2 sec (22.3-36.2); Prothrombin Time 10.1 sec (9.0-11.6)
[2024-04-01 17:19] LABS: Anion Gap 16.3; BUN Creatinine Ratio 9.9; Calcium 8.6 mg/dL (8.5-10.1); Carbon Dioxide 23.7 mmol/L (21.0-32.0); Chloride 94 mmol/L (98-107); Estimated GFR (African America >60 (>=60 mL/min/1.73m^2); Estimated GFR (Non-African Ame >60 (>=60 mL/min/1.73m^2); Glucose 74 mg/dL (74-106); Sodium 129 mmol/L (136-145)
== END 2024-04-01 16:07 | disposition home or self-care (01) ==
LOC: LAB 16:09
PROVIDERS: PCP Family Medicine; Visit Provider Physician Assistant
DX: M51.26 Other intervertebral disc displacement, lumbar region (principal)
CPT/HCPCS: 36415; 71046; 80048; 85025; 85610; 85730; 87081

== ENCOUNTER 2024-04-06 15:06 | Outpatient (OUT) | payer OTHER, MEDICARE, SELFPAY ==
--- NOTE | 2024-04-06 | ECG_ITS ---
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
== END 2024-04-06 15:07 | disposition home or self-care (01) ==
LOC: CARD 15:06
PROVIDERS: PCP Family Medicine; Visit Provider Orthopaedic Surgery Orthopaedic Surgery of the Spine
DX: Z01.810 Encounter for preprocedural cardiovascular examination (principal); I10 Essential (primary) hypertension; M51.26 Other intervertebral disc displacement, lumbar region
CPT/HCPCS: 93005

== ENCOUNTER 2024-05-06 16:22 | Outpatient (OUT) | payer MEDICARE, OTHER, SELFPAY ==
[2024-05-06 17:09] LABS: Anion Gap 16.1; BUN Creatinine Ratio 1.6; Blood Urea Nitrogen <1.0 mg/dL (7.0-18.0); Calcium 8.9 mg/dL (8.5-10.1); Carbon Dioxide 24.2 mmol/L (21.0-32.0); Chloride 101 mmol/L (98-107); Estimated GFR (African America >60 (>=60 mL/min/1.73m^2); Estimated GFR (Non-African Ame >60 (>=60 mL/min/1.73m^2); Glucose 98 mg/dL (74-106); Potassium 3.3 mmol/L (3.5-5.1); Sodium 138 mmol/L (136-145)
== END 2024-05-06 16:23 | disposition home or self-care (01) ==
LOC: LAB 16:25
PROVIDERS: PCP Family Medicine; Visit Provider Family Medicine
DX: E87.1 Hypo-osmolality and hyponatremia (principal)
CPT/HCPCS: 36415; 80048

== ENCOUNTER 2024-06-01 15:18 | Outpatient (OUT) | payer MEDICARE, OTHER, SELFPAY ==
--- NOTE | 2024-06-01 | XR_ITS ---
The [address] [address] Patient Name: RASHID BOOTH MRN: [id number] date: 1970 Sex: F Assigned Patient Location: [facility] Current Patient Location: [facility] Accession/Order Number: [id number] Exam Date: 06/01/2024 15:20 Report Date: 06/02/2024 13:33 At the request of: ABHIJIT BARR Procedure: XR foot DELFINO 2V EXAMINATION: XR foot DELFINO 2V, XR ankle DELFINO 2V HISTORY: BILATERAL FOOT PAIN COMPARISON: No relevant comparison available. FINDINGS: RIGHT FINDINGS: BONES: No acute fracture or dislocation. Degenerative changes most significant at the first metatarsal-phalangeal and second interphalangeal joints with joint space narrowing marginal osteophyte formation SOFT TISSUES: Negative. No visible soft tissue swelling. OTHER: Negative. LEFT FINDINGS: BONES: There is a large subacute/chronic fracture along the posterior aspect of the calcaneus measuring 3.3 x 2.2 cm with cranial displacement measuring 2.1 cm. Some bone formation is observed with incomplete bony bridging. Degenerative changes most significant along the second interphalangeal joint SOFT TISSUES: Negative. No visible soft tissue swelling. OTHER: Negative. XR/XR foot DELFINO 2V IMPRESSION: RIGHT CONCLUSION: Osteoarthritis LEFT CONCLUSION: Subacute/chronic displaced posterior calcaneus fracture Electronically authenticated by: TUYET JONES Date: 06/02/2024 13:33
--- NOTE | 2024-06-01 | XR_ITS ---
The [address] [address] Patient Name: RASHID BOOTH MRN: [id number] date: 1970 Sex: F Assigned Patient Location: [facility] Current Patient Location: [facility] Accession/Order Number: [id number] Exam Date: 06/01/2024 15:20 Report Date: 06/02/2024 13:33 At the request of: ABHIJIT BARR Procedure: XR ankle DELFINO 2V EXAMINATION: XR foot DELFINO 2V, XR ankle DELFINO 2V HISTORY: BILATERAL FOOT PAIN COMPARISON: No relevant comparison available. FINDINGS: RIGHT FINDINGS: BONES: No acute fracture or dislocation. Degenerative changes most significant at the first metatarsal-phalangeal and second interphalangeal joints with joint space narrowing marginal osteophyte formation SOFT TISSUES: Negative. No visible soft tissue swelling. OTHER: Negative. LEFT FINDINGS: BONES: There is a large subacute/chronic fracture along the posterior aspect of the calcaneus measuring 3.3 x 2.2 cm with cranial displacement measuring 2.1 cm. Some bone formation is observed with incomplete bony bridging. Degenerative changes most significant along the second interphalangeal joint SOFT TISSUES: Negative. No visible soft tissue swelling. OTHER: Negative. XR/XR ankle DELFINO 2V IMPRESSION: RIGHT CONCLUSION: Osteoarthritis LEFT CONCLUSION: Subacute/chronic displaced posterior calcaneus fracture Electronically authenticated by: TUYET JONES Date: 06/02/2024 13:33
== END 2024-06-01 15:19 | disposition home or self-care (01) ==
LOC: RAD 15:19
PROVIDERS: PCP Family Medicine; Visit Provider Podiatrist Foot & Ankle Surgery
DX: M25.571 Pain in right ankle and joints of right foot (principal); M25.572 Pain in left ankle and joints of left foot; S92.002D Unspecified fracture of left calcaneus, subsequent encounter for fracture with routine healing; M19.071 Primary osteoarthritis, right ankle and foot
CPT/HCPCS: 73600; 73620

== ENCOUNTER 2024-08-13 10:10 | Outpatient (OUT) | payer MEDICARE, BC, SELFPAY ==
--- NOTE | 2024-08-13 | XR_ITS ---
[facility] [place] [id number] Patient Name: RASHID BOOTH MRN: [id number] date: 1970 Sex: F Assigned Patient Location: Current Patient Location: Accession/Order Number: [id number] Exam Date: 08/13/2024 12:27 Report Date: 08/13/2024 12:28 At the request of: TRISTA MORRISON MD Procedure: XR lumbar spine 2-3V LUMBAR SPINE - 2 views CLINICAL HISTORY: M54.16, LUMBAR RADICULOPATHY COMPARISON: Lumbar spine 02/13/2024 FINDINGS: Posterior hardware fixation L4-L5 new since the prior study without evidence of hardware complication. Vertebral body heights appear maintained. Mild scoliosis. Moderate disc space narrowing L1-L2 and L5-S1. SI joints also demonstrate degenerative change. XR/XR lumbar spine 2-3V IMPRESSION: NO HARDWARE COMPLICATION. MILD DISC SPACE NARROWING L1-L2 AND L5-S1. Impression dictated by: Gildardo Cardenas Jr., D.O.08/13/2024 12:28 PM Dictation Location: [place] [address] Electronically authenticated by: [id number] Y Date: 08/13/2024 12:28
== END 2024-08-13 10:11 | disposition home or self-care (01) ==
LOC: EC 10:11
PROVIDERS: PCP Family Medicine; Visit Provider Orthopaedic Surgery Orthopaedic Surgery of the Spine
DX: M54.16 Radiculopathy, lumbar region (principal)
CPT/HCPCS: 72100

== ENCOUNTER 2024-11-30 17:54 | Inpatient (IN) | payer BC, MEDICARE, SELFPAY ==
--- OUTSIDE RECORDS SUMMARY | 2024-06-01 10:30 | XMS_ITS ---
Author Organization The [facility] [place] Address [address] [place] [address] Care Team Providers Care Molecular Biologist Name Role Phone Kymberly Gilmore Primary Care Provider Black Zhang Unavailable [phone] REASON FOR VISIT ref from Dr. 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) Active confirmed Encounters Encounter Location Date Provider Diagnosis [facility] (PODIATRY) [address] [place] [address] [place] [address] 06/01/2024 Black Weeks Pain in left ankle and joints of left foot M25.572 ; Post-traumatic osteoarthritis, left ankle and foot M19.172 ; Pain in right foot M79.671 and Pain in right ankle and joints of right foot M25.571 Assessments Encounter Date Diagnosis (ICD Code) Assessment Notes Treatment Notes Treatment Clinical Notes Section Notes 06/01/2024 Pain in left ankle and joints of left foot (ICD-10 - M25.572) 06/01/2024 Post-traumatic osteoarthritis , left ankle and foot (ICD-10 - M19.172) Patient seen and evaluated. Patient education provided and all questions answered to her satisfaction. Patient does have abnormal left foot x-ray and only early degenerative changes on the right first MPJ. Her pain does not correlate with her physical exam or x-ray findings therefore I believe much of her pain is secondary to her back pain and neuropathic pain as she describes the pain as burning tingling and persistent regardless of activity. She is scheduled for back surgery in the upcoming weeks and hopefully this will alleviate much of her foot pain. She will follow-up as needed I did offer topical compound but she does have an allergy to NSAIDs therefore no prescriptions were given 06/01/2024 Pain in right foot (ICD-10 - M79.671) 06/01/2024 Pain in right ankle and joints of right foot (ICD-10 - M25.571) Plan Of Treatment Treatment Notes Assessment Notes Post-traumatic osteoarthriti s, left ankle and foot Patient seen and evaluated. Patient education provided and all questions answered to her satisfaction. Patient does have abnormal left foot x-ray and only early degenerative changes on the right first MPJ. Her pain does not correlate with her physical exam or x-ray findings therefore I believe much of her pain is secondary to her back pain and neuropathic pain as she describes the pain as burning tingling and persistent regardless of activity. She is scheduled for back surgery in the upcoming weeks and hopefully this will alleviate much of her foot pain. She will follow-up as needed I did offer topical compound but she does have an allergy to NSAIDs therefore no prescriptions were given Pending Test Test Name Order Date XR Ankle LT AP & LATERAL 06/01/2024 XR Ankle RT AP and LATERAL 06/01/2024 XR Foot LT AP and Lat 06/01/2024 XR Foot RT AP and Lat 06/01/2024 Progress Notes * Edgar BOOTHtimothyDOB: [birth year] (53 yo F)Acc No.[id number]:06/01/2024 New Patient Patient: Candy LOUIS Provider: Jasmina Weeks DPM, MS :1970 A ge:53 Y S ex:Female Date:06/01/2024 Address:[facility] [address] , [id number] Pcp:Kymberly Gilmore Check In:02:21 PM ESTCheck O ut:03:47 PM EST Subjective: * Chief Complaints: * r ef from Dr. Gilmore, broken bones in both feet and LT ankle pain * HPI: G eneral: Patient in office today for evaluation of bilateral feet for broken bones. She had a fall x 3 months ago. She did see Lisa Muller who did xrays and mentioned broken bones in both her feet. Patient is currently not weight bearing. She c/o burning pains in her toes bilaterally as well as clicking soundsin both feet. She has swelling and discoloration to bilateral feet and toes.She did have a surgery on her left foot in 2014 where they scraped adhesions off her foot and did a scope. She has a history of neuropathy. She does have back surgery scheduled for next Friday. * Active Problem List M25.572 Pain in left ankle a nd joints of left foot Modified On:05/27/2024W/U Status:confirmed M79.671 Pain in right foot Modified On:05/27/2024/U Status:confirmed M19.172 Post-traumatic osteo arthritis, left ankle and foot Modified On:06/01/2024/U Status:confirmed * Medical History: * Surgical History: * Hospitalization/Major Diagno stic Procedure: * Medications: Objective: * Vitals: * Examination: P odiatry Examination: SKIN: s kin intact, n o sign of infection. MUSCULOSKELETAL: N o pain to palpation A s I am unable to reproduce the patient's pain. Specifically no pain on palpation over the left Achilles tendon insertion or the midfoot. N o gross deformity, . NEUROLOGICAL: l ight touch sensation intact, n egative tinel's sign. VASCULAR: P edal pulses Are faintly palpable, C apillary refill is brisk to toe, D igital hair A bsent. Mild to moderate left dorsal foot swelling and mild right dorsal foot swelling. X -rays: x-rays were obtained & reviewed in my office. On the right foot there is mild to moderate degenerative changes of the first metatarsal phalangeal joint but all cortices are intact and no significant deformity other than at the distal aspect of the second toe. Left foot has posttraumatic changes across the midfoot as well as remote avulsion fracture from the Achilles. Assessment: * Assessment: 1. P ost-traumatic osteoarthritis, left ankle and foot - M19.172 (Primary) 2 .?Pain in left ankle and joints of left foot - M25.572 3 . P ain in right foot - M79.671 4 . P ain in right ankle and joints of right foot - M25.571 ? Plan: * Treatment: 2. P ain in left ankle and joints of left foot I maging: XR Ankle LT (3 views) * (164) (Order Cancelled) I maging: XR Foot LT (3 views) * (Order Cancelled) I maging: XR Ankle LT AP & LATERAL I maging: XR Foot LT AP and Lat 3. P ain in right foot I maging: XR Foot RT (3 views) * (Order Cancelled) 4. P ain in right ankle and joints of right foot I maging: XR Ankle RT AP and LATERAL I maging: XR Foot RT AP and Lat * Procedure Codes: * * Sign off status: Completed Visit Status: C HK (Check Out) true * Provider: Jasmina Weeks DPM, MS Date: 0 06/01/2024 Generated for [facility] tod/Devorah/Marva on: 0 11/30/2024 06:03 PM EDT History and Physical Notes * HPI (History of Present Illness) Category Sub-Category Detail Notes Category Not es General Patient in offi ce today for evaluation of bilateral feet for broken bones. She had a fall x 3 months ago. She did see Lisa Muller who did xrays and mentioned broken bones in both her feet. Patient is currently not weight bearing. She c/o burning pains in her toes bilaterally as well as clicking soundsin both feet. She has swelling and discoloration to bilateral feet and toes.She did have a surgery on her left foot in 2014 where they scraped adhesions off her foot and did a scope. She has a history of neuropathy. She does have back surgery scheduled for next Friday. Examination Category Sub-Category Detail Notes Category Not es Podiatry Examination SKIN: skin intact, no sign of infection X-rays: x-rays were obtained & reviewed in my office. On the right foot there is mild to moderate degenerative changes of the first metatarsal phalangeal joint but all cortices are intact and no significant deformity other than at the distal aspect of the second toe. Left foot has posttraumatic changes across the midfoot as well as remote avulsion fracture from the Achilles MUSCULOSKELETAL: No pain to palpation As I am unable to reproduce the patient's pain. Specifically no pain on palpation over the left Achilles tendon insertion or the midfoot. No gross deformity, NEUROLOGICAL: light touch sensatio n intact, negative tinel's sign VASCULAR: Pedal pulses Are jelani ntly palpable, Capillary refill is brisk to toe, Digital hair Absent. Mild to moderate left dorsal foot swelling and mild right dorsal foot swelling
--- OUTSIDE RECORDS SUMMARY | 2024-06-08 12:57 | XMS_ITS ---
Author Name Auto Generated Organization OHIP Care Team Providers Care Dustless Operator Name Role Phone QUAN SHARPE Attending Unavailable KYMBERLY MITCHELL Primary Care Unavailable QUAN SHARPE Attending Unavailable KYMBERLY MITCHELL Primary Care Unavailable TL MATHUR Consulting Unavailable KYMBERLY MITCHELL Primary Care Unavailable ARNOLD TARUN Admitting Unavailable VANDANA MALONEY Attending Unavailable NBA OLIVIA Referring Unavailable MARGARET GREER Consulting Unavailable MARGARET SULLIVAN Consulting Unavailable OMAR DICKEY Consulting Unavailable ISELA RAMIREZ Consulting Unavailable MASLISE Patton, MOHAMMAD Consulting Unavailable JONNA SAUCEDOHEETViolette Consulting Unavaila KELI Delgado Attending Unavailable KYMBERLY MITCHELL Primary Care Unavailable AVASTHI, NIA Admitting Unavailable SHAIKH NAVA Referring Unavailable SANDY RODGERS Consulting Unavailable MALLY HOPPER Consulting Unavailable MICHAEL ARELLANO Consulting UnavailMARGARET Parekh Consulting Unavailable ONDINAASTHI, NIA Consulting Unavailable Kymberly Mitchell Primary Care Unavailable Kymberly Mitchell Attending Unavailable Kymberly Mitchell Admitting Unavailable Kymberly Mitchell Attending Unavailable Kymberly Mitchell Admitting Unavailable CRISTOBAL, OLUREMI A Consulting Unavailable TRISTA MORRISON Attending Unavailable TRISTA MORRISON Admitting Unavailable KYMBERLY MITCHELL Primary Care Unavailable Cat BURKETT, Bhupinder Toth Attending Unavailable Kenneth GONZALEZ Attending Unavailable PROBLEMS DATE TYPE CONDITION / CODE ATTENDING STATUS [facility] 06/08/2024 Admitting diagnosis Spinal stenosis, lumbosacral region / M48.07(ICD-10) [facility] 06/08/2024 Admitting diagnosis Spinal stenosis, lumbar region with neurogenic claudication / M48.062(ICD-10) 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) [facility] 05/27/2023 Admitting Diagnosis Endocarditis, 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) [facility] 05/27/2023 Admitting Diagnosis Nicotine dependence, unspecified, uncomplicated / F17.200(ICD-10) [facility] 05/27/2023 Admitting Diagnosis Essential (primary) hypertension / I10(ICD-10) [facility] 01/06/2024 Admitting diagnosis Gastrointestinal hemorrhage, unspecified / K92.2(ICD-10) VANDANA MALONEY [facility] 12/31/2023 Unknown Syncope and soraida apse / R55(ICD-10) KELI RABAGO [facility] PROCEDURES No Procedure Records Found RESULTS HGB,HCT Collected: 7:25 AM Status: F Source: [facility] TYPE CODE TESTS RESULT OUT OF RANGE REFERENCE UNITS LAB HGB(LOINC) HEMOGLOBIN 9.1 Low 12.0-16.0 gm/dl LAB HCT(LOINC) HEMATOCRIT 28.7 Low 37.0-47.0 % Performed By: #### HH, BMP, ANION, EGFR1 #### [facility] [address] [place] [address] BASIC METABOL PANEL Collected: 06/11/19 7:25 AM Status: F Source: [facility] TYPE CODE TESTS RESULT OUT OF RANGE REFERENCE UNITS LAB NAP(LOINC) SODIUM 139 135-145 meq/L LAB KP(LOINC) POTASSIUM 3.2 Low 3.5-5.2 meq/L LAB CLP(LOINC) CHLORIDE 100 98-111 meq/L LAB CO2P(LOINC) CO2 24 23-33 meq/L LAB GLUP(LOINC) GLUCOSE 109 High 70-108 mg/dL LAB BUN(LOINC) BUN 4 Low 7-22 mg/dL LAB CRE(LOINC) CREATININE 0.3 Low 0.4-1.2 mg/dL LAB CAP(LOINC) CALCIUM 8.7 8.5-10.5 mg/dL Performed By: #### HH, BMP, ANION, EGFR1 #### [facility] [address] [place] [address] ANION GAP Collected: 7:25 AM Status: F Source: [facility] TYPE CODE TESTS RESULT OUT OF RANGE REFERENCE UNITS LAB ANION(LOINC) ANION GAP 15.0 8.0-16.0 meq/L Result Comment: ANION GAP = Sodium -(Chloride + CO2) Performed By: #### HH, BMP, ANION, EGFR1 #### [facility] [address] [place] [address] GFR, ESTIMATED Collected: 06/11/2024 7:25 AM Status: F Source: [facility] TYPE CODE TESTS RESULT OUT OF RANGE REFERENCE UNITS LAB GFR4(LOINC) ESTIMATED GFR > 90 >60 ml/min /1. 73m2 Result Comment: Pediatric ca lculator link [email or web address]://www.kidney.org/professionals/kdoqi/gfr_calculatorped Effective Feb 25, 2022 These results are not intended for use in patients <18 years of age. eGFR results are calculated without a race factor using the 2020 CKD-EPI equation. Careful clinical correlation is recommended, particularly when comparing to results calculated using previous equations. The CKD-EPI equation is less accurate in patients with extremes of muscle mass, extra-renal metabolism of creatinine, excessive creatine ingestion, or following therapy that affects renal tubular secretion. Performed By: #### HH, BMP, ANION, EGFR1 #### [facility] [address] [place] [address] XR WRIST LEFT (MIN 3 VIEWS) Observed: 1:19 PM Status: F Source: [facility] XR WRIST LEFT (MIN 3 VIEWS) CLINICAL INFORMATION: Fall left wrist pain COMPARISON: No prior study. TECHNIQUE: Standard views of the wrist were obtained FINDINGS: Mild soft tissue swelling overlies the dorsal aspect of the wrist. No acute fracture is seen. There is some mild deformity of the distal radius. Cannot exclude an old healed fracture. IMPRESSION: Soft tissue swelling. No acute fracture. This report has been created using voice recognition software. It may contain minor errors which are inherent in voice recognition technology. Electronically signed by Dr. Levy Hayes Interpreted by: Levy Hayes MD Signed by: Levy Hayes MD 06/10/24 Final result HGB,HCT Collected: 6:12 AM Status: F Source: [facility] TYPE CODE TESTS RESULT OUT OF RANGE REFERENCE UNITS LAB HGB(LOINC) HEMOGLOBIN 9.0 Low 12.0-16.0 gm/dl LAB HCT(LOINC) HEMATOCRIT 28.0 Low 37.0-47.0 % Performed By: #### EGFR1, HH , BMP, ANION #### [facility] [address] [place] [address] BASIC METABOL PANEL Collected: 06/10/19 6:12 AM Status: F Source: [facility] TYPE CODE TESTS RESULT OUT OF RANGE REFERENCE UNITS LAB NAP(LOINC) SODIUM 146 High 135-145 meq/L LAB KP(LOINC) POTASSIUM 3.3 Low 3.5-5.2 meq/L LAB CLP(LOINC) CHLORIDE 107 98-111 meq/L LAB CO2P(LOINC) CO2 24 23-33 meq/L LAB GLUP(LOINC) GLUCOSE 110 High 70-108 mg/dL LAB BUN(LOINC) BUN 4 Low 7-22 mg/dL LAB CRE(LOINC) CREATININE 0.4 0.4-1.2 mg/dL LAB CAP(LOINC) CALCIUM 8.7 8.5-10.5 mg/dL Performed By: #### EGFR1, HH , BMP, ANION #### [facility] [address] [place] [address] ANION GAP Collected: 6:12 AM Status: F Source: [facility] TYPE CODE TESTS RESULT OUT OF RANGE REFERENCE UNITS LAB ANION(LOINC) ANION GAP 15.0 8.0-16.0 meq/L Result Comment: ANION GAP = Sodium -(Chloride + CO2) Performed By: #### EGFR1, HH , BMP, ANION #### [facility] [address] [place] [address] GFR, ESTIMATED Collected: 06/10/2024 6:12 AM Status: F Source: [facility] TYPE CODE TESTS RESULT OUT OF RANGE REFERENCE UNITS LAB GFR4(LOINC) ESTIMATED GFR > 90 >60 ml/min /1. 73m2 Result Comment: Pediatric ca lculator link https://www.kidney.org/professionals/kdoqi/gfr_calculatorped Effective Feb 25, 2022 These results are not intended for use in patients <18 years of age. eGFR results are calculated without a race factor using the 2020 CKD-EPI equation. Careful clinical correlation is recommended, particularly when comparing to results calculated using previous equations. The CKD-EPI equation is less accurate in patients with extremes of muscle mass, extra-renal metabolism of creatinine, excessive creatine ingestion, or following therapy that affects renal tubular secretion. Performed By: #### EGFR1, HH , BMP, ANION #### [facility] [address] [place] [address] EKG 12-LEAD Observed: 06/09/2024 11:47 PM Status: F Source: [facility] 100 100 158 86 346 446 16 27 65 Normal sinus rhythm Nonspecific ST and T wave abnormality Abnormal ECG Confirmed by TEA ADAMSON ([id number]) on 06/10/2024 11:52:42 AM [email or web address] [id number] 5&Date=09-06-2024&Time=23%3a47%3a11%3a00&TestType=ECG&Site=3&OutputType=PDF&Ext= PDF EKG 12-LEAD Observed: 06/09/2024 11:22 AM Status: F Source: [facility] 117 117 154 90 328 457 23 26 120 Sinus tachycardia LVH with repolarization abnormality ( Ayo product ) Cannot rule out Inferior infarct , age undetermined Abnormal ECG No previous ECGs available Confirmed by TEA ADAMSON ([id number]) on 06/09/2024 11:36:47 AM [email or web address] 5&Date=09-06-2024&Time=11%3a22%3a29%3a00&TestType=ECG&Site=3&OutputType=PDF&Ext= PDF XR LUMBAR SPINE 1 VW Observed: 5 8:44 AM Status: F Source: [facility] MOBILE LATERAL LUMBAR SPINE: CLINICAL INFORMATION: surgery COMPARISON: No prior study. TECHNIQUE: A single lateral mobile view of the lumbar spine was obtained following surgery. FINDINGS: Posterior lumbar fusion has been performed with pedicle screws and rods bridging the L4-5 level posteriorly. IMPRESSION: Postop appearance of the lumbar spine. This report has been created using voice recognition software. It may contain minor errors which are inherent in voice recognition technology. Electronically signed by Dr. Levy Hayes Interpreted by: Levy Hayes MD Signed by: Levy Hayes MD 06/09/24 Final result HGB,HCT Collected: 7:09 AM Status: F Source: [facility] TYPE CODE TESTS RESULT OUT OF RANGE REFERENCE UNITS LAB HGB(LOINC) HEMOGLOBIN 9.8 Low 12.0-16.0 gm/dl LAB HCT(LOINC) HEMATOCRIT 31.1 Low 37.0-47.0 % Performed By: #### HH, BMP, ANION, EGFR1 #### [facility] [address] [place] [address] BASIC METABOL PANEL Collected: 06/09/19 7:09 AM Status: F Source: [facility] TYPE CODE TESTS RESULT OUT OF RANGE REFERENCE UNITS LAB NAP(LOINC) SODIUM 139 135-145 meq/L LAB KP(LOINC) POTASSIUM 4.3 3.5-5.2 meq/L LAB CLP(LOINC) CHLORIDE 103 98-111 meq/L LAB CO2P(LOINC) CO2 20 Low 23-33 meq/L LAB GLUP(LOINC) GLUCOSE 107 70-108 mg/dL LAB BUN(LOINC) BUN < 2 Low 7-22 mg/dL LAB CRE(LOINC) CREATININE 0.6 0.4-1.2 mg/dL LAB CAP(LOINC) CALCIUM 8.4 Low 8.5-10.5 mg/dL Performed By: #### AMANDA, BMP, ANION, EGFR1 #### [facility] [address] [place] [address] ANION GAP Collected: 7:09 AM Status: F Source: [facility] TYPE CODE TESTS RESULT OUT OF RANGE REFERENCE UNITS LAB ANION(LOINC) ANION GAP 16.0 8.0-16.0 meq/L Result Comment: ANION GAP = Sodium -(Chloride + CO2) Performed By: #### AMANDA, BMP, ANION, EGFR1 #### [facility] [address] [place] [id number] GFR, ESTIMATED Collected: 06/09/2024 7:09 AM Status: F Source: [facility] TYPE CODE TESTS RESULT OUT OF RANGE REFERENCE UNITS LAB GFR4(LOINC) ESTIMATED GFR > 90 >60 ml/min /1. 73m2 Result Comment: Pediatric ca lculator link https://www.kidney.org/professionals/kdoqi/gfr_calculatorped Effective Feb 25, 2022 These results are not intended for use in patients <18 years of age. eGFR results are calculated without a race factor using the 2020 CKD-EPI equation. Careful clinical correlation is recommended, particularly when comparing to results calculated using previous equations. The CKD-EPI equation is less accurate in patients with extremes of muscle mass, extra-renal metabolism of creatinine, excessive creatine ingestion, or following therapy that affects renal tubular secretion. Performed By: #### HH, BMP, ANION, EGFR1 #### [facility] [address] [place] [address] XR LUMBAR SPINE 1 VW Observed: 4:14 PM Status: F Source: [facility] MOBILE LATERAL LUMBAR SPINE: CLINICAL INFORMATION: surgery COMPARISON: No prior study. TECHNIQUE: A single lateral mobile view of the lumbar spine was obtained For localization purposes. FINDINGS: 2 spinal needles are present posteriorly, directed at the L3-4 and L4-5 disc spaces. IMPRESSION: Intraoperative appearance of the lumbar spine. This report has been created using voice recognition software. It may contain minor errors which are inherent in voice recognition technology. Electronically signed by Dr. Levy Hayes Interpreted by: Levy Hayes MD Signed by: Levy Hayes MD 06/08/24 Final result DIPSTICK AND MICROSCOPIC Collected: 09/2023 4:00 PM Status: F Source: [facility] Order Comment: Name Collecti on Type:: Voided TYPE CODE TESTS RESULT OUT OF RANGE REFERENCE UNITS LAB UCOL Color,Urine Light-Yellow Yellow LAB UAPP Appearance,Uri ne Cloudy Abnormal Alert Clear LAB USG Specificy Hull,Urine 1.011 Normal 1.001-1.030 LAB UPH pH,Urine 5.5 Normal 5.0-9.0 LAB ULE Leukocyte Esterase,Urine 4+ High Negative LAB UNIT Nitrite,Urine Negative Negative LAB UPRO Protein,Urine Negative Negative LAB UGL Glucose,Urine (UA) Normal Normal LAB UKET Ketones,Urine Negative Negative LAB UURO Urobilinogen,U rine Normal Normal LAB UBIL Bilirubin,Urin e Negative Negative LAB UBLD Occult Blood,Urine Negative Negative Result Comment: PERFORMED BY : [facility] [address] [place] [address] PATHOLOGIST TRAILER SECTIONS ASSEMBLER RICHARD FAIR M.D. LAB URBC RBC,Urine 3 0-4 [HPF] LAB UWBC WBC,Urine 50 High 0-4 [HPF] LAB UCLUMPWBC WBC CLUMP, Urine Many High None Seen LAB USQEPI Squamous Epithelial Cell,Urine 3 High 0-2 [HPF] LAB UBACT Bacteria,Urine 4+ High None Seen LAB UHYALC Hyaline Casts,Urine 0 0-8 [LPF] LAB MUCUS Mucus,Urine Rare Result Comment: PERFORMED BY : [place] [address] PATHOLOGIST TRAILER SECTIONS ASSEMBLER RICHARD FAIR M.D. Performed By: #### ADDONUAPL ERNESTINE HENDRIX #### [address] URINE CULTURE Observed: 04/29/2024 4:00 PM Status: F Source: [facility] ORGANISM: Klebsiella pneumon iae (O:KLEPNE) [place] Count >100,000 Aerobic LUBNA Charge ([id number]) SUSCEPTIBILITY ORGANISM: O:KLEPNE ANTIBIOTIC INTERPRETATION LUBNA Amikacin S <16 Amoxacillin/K Clavulanate S <8 Ampicillin/Sulbactam S 88/4 Aztreonam S <4 Cefazolin S <2 Cefepime S <2 Ceftazidime S <1 Ceftazidime/Avibactam S <4 Ceftolozane/Tazobactam S <2 Ceftriaxone S <1 Cefuroxime S <4 Ciprofloxacin S <0.25 Ertapenem S <0.5 Gentamicin S <2 Levofloxacin S <0.5 Meropenem S <1 Meropenem/Vaborbactam S <2 Nitrofurantoin S <32 Piperacillin/Tazobactam S <8 Tetracycline S <4 Tigecycline S <2 Tobramycin S <2 Trimethoprim/Sulfamethoxazole S <0.5 S = SUSCEPTIBLE I = INTERMEDIATE R = RESISTANT BLANK = DATA NOT AVAILABLE, OR DRUG NOT ADVISABLE OR TESTED R* = RESISTANCE DUE TO EXTENDED SPECTRUM BETA-LACTAMASES ESBL = EXTENDED SPECTRUM BETA-LACTAMASE TFG = THYMIDINE-DEPENDENT STRAIN GUNNAR = BETA-LACTAMASE POSITIVE IB = INDUCIBLE BETA-LACTAMASE. APPEARS IN PLACE OF 'S' WITH SPECIES KNOWN TO POSSESS INDUCIBLE BETA-LACTAMASES. POTENTIALLY THEY MAY BECOME RESISTANT TO ALL B-LACTAM DRUGS. PERFORMED BY: [place] [address] PATHOLOGIST TRAILER SECTIONS ASSEMBLER RICHARD FAIR M.D. Performed By: #### ANNAMARIEUAPL US, CUU #### [facility] [address] HGB/HCT Collected: 4 7:54 AM Status: F Source: [facility] TYPE CODE TESTS RESULT OUT OF RANGE REFERENCE UNITS LAB HGB(LOINC) Hemoglobin 8.7 Low 11.9-15.1 g/dL LAB HCT(LOINC) Hematocrit 27.8 Low 36.3-47.1 % Performed By: #### HH #### [facility] [place], [place] [phone] Communications Intern: Tato Ibarra MD HGB/HCT Collected: 4 3:32 PM Status: F Source: [facility] TYPE CODE TESTS RESULT OUT OF RANGE REFERENCE UNITS LAB HGB(LOINC) Hemoglobin 8.1 Low 11.9-15.1 g/dL LAB HCT(LOINC) Hematocrit 25.4 Low 36.3-47.1 % Performed By: #### HH #### [facility] [employer] [facility] [place], [place] [phone] Communications Intern: Tato Ibarra MD CBC WITH DIFF Collected: 4 4:13 AM Status: F Source: [facility] TYPE CODE TESTS RESULT OUT OF RANGE REFERENCE UNITS LAB WBC(LOINC) WBC Count 5.6 3.5-11.3 k/uL LAB RBC(LOINC) RBC Count 2.99 Low 3.95-5.11 m/uL LAB HGB(LOINC) Hemoglobin 8.9 Low 11.9-15.1 g/dL LAB HCT(LOINC) Hematocrit 27.1 Low 36.3-47.1 % LAB MCV(LOINC) MCV 90.6 82.6-102.9 fL LAB MCH(LOINC) MCH 29.8 25.2-33.5 pg LAB MCHC(LOINC) MCHC 32.8 28.4-34.8 g/dL LAB RDW(LOINC) RDW 18.7 High 11.8-14.4 % LAB PLT(LOINC) Platelet Count See Reflexed IPF Result 138-453 k/uL LAB PLTFL(LOINC) Platelet, Fluoresc. 190 138-453 k/uL LAB IPLTF(INC) PLT, Immature Fract. 4.6 1.1-10.3 % LAB NRBCS([facility]) NRBC Automated 0.0 0.0 per 100 WBC LAB RCOM(LOINC) RBC Morphology ANISOCYTOSIS PRESENT LAB SEG(LOINC) Neutrophil (Seg) 57 36-65 % LAB LYM(LOINC) Lymphocyte 24 24-43 % LAB MON(LOINC) Monocyte 15 High 3-12 % LAB EO(LOINC) Eosinophil 2 1-4 % LAB BASO(INC) Basophil 1 0-2 % LAB IGRAN(INC) Immature Granulocyte 1 High 0 % LAB ASEG(INC) Abs.Neutrophil (Seg) 3.17 1.50-8.10 k/uL LAB ALYM(LOINC) Abs. Lymph 1.36 1.10-3.70 k/uL LAB AMONO([facility]) Abs. Monocyte 0.85 0.10-1.20 k/u L LAB AEO(LOINC) Abs. Eosinophil 0.12 0.00-0.44 k/uL LAB ABASO(LOINC) Abs. Basophil 0.03 0.00-0.20 k/u L LAB AIGRAN([facility]) Abs.Imm.Granul ocyte 0.04 0.00-0.30 k/uL Performed By: #### IOCAL, BM PX, MG, CDP #### [facility] [address] [place] [phone] Communications Intern: Tato Ibarra MD CALCIUM, IONIC Collected: 4:13 AM Status: F Source: [facility] TYPE CODE TESTS RESULT OUT OF RANGE REFERENCE UNITS LAB IOCA([facility]) Calcium, Ionic 1.18 1.13-1.33 mmol/L Performed By: #### IOCAL, BM PX, MG, CDP #### [facility] [address] [place] [phone] Communications Intern: Tato Ibarra MD BASIC METAB W/RFX MG Collected: 01/10/2024 4:13 AM S tatus: F Source: [facility] TYPE CODE TESTS RESULT OUT OF RANGE REFERENCE UNITS LAB NA(LOINC) NA (Sodium) 137 136-145 mmol/L LAB K(LOINC) K (Potassium) 3.2 Low 3.7-5.3 mmol/L Result Comment: SPECIMEN SLI GHTLY HEMOLYZED, RESULTS MAY BE ADVERSELY AFFECTED. LAB CL(LOINC) Chloride 101 98-107 mmol/L LAB HCO(LOINC) CO2 27 20-31 mmol/L LAB GAP(LOINC) Anion Gap 9 9-16 mmol/L LAB GLU(LOINC) Glucose 87 74-99 mg/dL LAB BUN(LOINC) BUN (Urea N) 4 Low 6-20 mg/dL LAB CRE(LOINC) Creatinine 0.4 Low 0.50-0.90 mg/dL LAB EGFR(LOINC) eGFR >90 >60 mL/min/1. 73m2 Result Comment: These results are not intended [...] following therapy that affects renal tubular secretion. LAB CA(LOINC) Calcium 8.0 Low 8.6-10.4 mg/dL Performed By: #### JUNCAL, BM PX, MG, CDP #### [facility] [address] [place] [address] Communications Intern: Tato Ibarra MD MAGNESIUM Collected: 4 4:13 AM Status: F Source: [facility] TYPE CODE TESTS RESULT OUT OF RANGE REFERENCE UNITS LAB MG(LOINC) Magnesium 1.8 1.6-2.6 mg/dL Performed By: #### IOCAL, BM PX, MG, CDP #### [facility] [address] [place] [phone] Communications Intern: Tato Ibarra MD HGB/HCT Collected: 4 10:45 AM Status: F Source: [facility] TYPE CODE TESTS RESULT OUT OF RANGE REFERENCE UNITS LAB HGB(LOINC) Hemoglobin 8.0 Low 11.9-15.1 g/dL LAB HCT(LOINC) Hematocrit 23.7 Low 36.3-47.1 % Performed By: #### #### [facility] [employer] [address] [place] [address] Communications Intern: Tato Ibarra MD CBC WITH DIFF Collected: 4 5:35 AM Status: F Source: [facility] TYPE CODE TESTS RESULT OUT OF RANGE REFERENCE UNITS LAB WBC(LOINC) WBC Count 6.1 3.5-11.3 k/uL LAB RBC(LOINC) RBC Count 2.60 Low 3.95-5.11 m/uL LAB HGB(LOINC) Hemoglobin 7.7 Low 11.9-15.1 g/dL LAB HCT(LOINC) Hematocrit 24.7 Low 36.3-47.1 % LAB MCV(LOINC) MCV 95.0 82.6-102.9 fL LAB MCH(LOINC) MCH 29.6 25.2-33.5 pg LAB MCHC(LOINC) MCHC 31.2 28.4-34.8 g/dL LAB RDW(LOINC) RDW 19.9 High 11.8-14.4 % LAB PLT(LOINC) Platelet Count 266 138-453 k/uL LAB MPVX(LOINC) MPV 10.4 8.1-13.5 fL LAB NRBCS(LOINC) NRBC Automated 0.0 0.0 per 100 WBC LAB RCOM(LOINC) RBC Morphology ANISOCYTOSIS PRESENT LAB SEG(LOINC) Neutrophil (Seg) 73 High 36-65 % LAB LYM(LOINC) Lymphocyte 15 Low 24-43 % LAB MON(LOINC) Monocyte 10 3-12 % LAB EO(LOINC) Eosinophil 2 1-4 % LAB BASO(LOINC) Basophil 1 0-2 % LAB IGRAN(LOINC) Immature Granulocyte 0 0 % LAB ASEG(LOINC) Abs.Neutrophil (Seg) 4.44 1.50-8.10 k/uL LAB ALYM(LOINC) Abs. Lymph 0.91 Low 1.10-3.70 k/uL LAB AMONO(LOINC) Abs. Monocyte 0.60 0.10-1.20 k/u L LAB AEO(LOINC) Abs. Eosinophil 0.10 0.00-0.44 k/uL LAB ABASO(LOINC) Abs. Basophil 0.03 0.00-0.20 k/u L LAB AIGRAN(LOINC) Abs.Imm.Granul ocyte <0.03 0.00-0.30 k/uL Performed By: #### CDP, IOCA L, BMPX, MG, FEBC, FERI #### [facility] [place], [place] [phone] Communications Intern: Tato Ibarra MD CALCIUM, IONIC Collected: 5:35 AM Status: F Source: [facility] TYPE CODE TESTS RESULT OUT OF RANGE REFERENCE UNITS LAB IOCA(LOINC) Calcium, Ionic 1.18 1.13-1.33 mmol/L Performed By: #### CDP, IOCA L, BMPX, MG, FEBC, FERI #### [facility] [employer] [address] [place] [phone] Communications Intern: Tato Ibarra MD BASIC METAB W/RFX MG Collected: 01/09/2024 5:35 AM S tatus: F Source: [facility] TYPE CODE TESTS RESULT OUT OF RANGE REFERENCE UNITS LAB NA(LOINC) NA (Sodium) 138 136-145 mmol/L LAB K(LOINC) K (Potassium) 3.1 Low 3.7-5.3 mmol/L LAB CL(LOINC) Chloride 103 98-107 mmol/L LAB HCO(LOINC) CO2 27 20-31 mmol/L LAB GAP(LOINC) Anion Gap 8 Low 9-16 mmol/L LAB GLU(LOINC) Glucose 103 High 74-99 mg/dL LAB BUN(LOINC) BUN (Urea N) 4 Low 6-20 mg/dL LAB CRE(LOINC) Creatinine 0.3 Low 0.50-0.90 mg/dL LAB EGFR(LOINC) eGFR >90 >60 mL/min/1. 73m2 Result Comment: These results are not intended [...] following therapy that affects renal tubular secretion. LAB CA(LOINC) Calcium 8.1 Low 8.6-10.4 mg/dL Performed By: #### CDP, IOCA L, BMPX, MG, FEBC, FERI #### [facility] [employer] [address] [place] [phone] Communications Intern: Tato Ibarra MD MAGNESIUM Collected: 5:35 AM Status: F Source: [facility] TYPE CODE TESTS RESULT OUT OF RANGE REFERENCE UNITS LAB MG(LOINC) Magnesium 2.0 1.6-2.6 mg/dL Performed By: #### CDP, IOCA L, BMPX, MG, FEBC, FERI #### [facility] [employer] [address] [place] [phone] Communications Intern: Tato Ibarra MD IRON BINDING CAP. Collected: 01/09/2024 5:35 AM Stat us: F Source: [facility] TYPE CODE TESTS RESULT OUT OF RANGE REFERENCE UNITS LAB FE(LOINC) Iron 15 Low 37-145 ug/dL LAB TIBC(LOINC) Total Fe Binding Cap 156 Low 250-450 ug/dL LAB FESAT(LOINC) % Fe Saturation 10 Low 20-55 % LAB UIBC(LOINC) Unbound Fe Bind Cap 141 112-347 ug/dL Performed By: #### CDP, IOCA L, BMPX, MG, FEBC, FERI #### [facility] [employer] [address] [place] [phone] Communications Intern: Tato Ibarra MD FERRITIN Collected: 5:35 AM Status: F Source: [facility] TYPE CODE TESTS RESULT OUT OF RANGE REFERENCE UNITS LAB FERI(LOINC) Ferritin 80 13-150 ng/mL Result Comment: FERRITIN Reference Ranges: Adult Males 20 - 60 years: 30 - 400 ng/mL Adult females 17 - 60 years: 13 - 150 ng/mL Adults greater than 60 years: no established reference range Pediatrics: no established reference range Performed By: #### CDP, IOCA L, BMPX, MG, FEBC, FERI #### [address] [id number] Communications Intern: Tato Ibarra MD HGB/HCT Collected: 4 10:29 PM Status: F Source: [facility] TYPE CODE TESTS RESULT OUT OF RANGE REFERENCE UNITS LAB HGB(LOINC) Hemoglobin 8.0 Low 11.9-15.1 g/dL LAB HCT(LOINC) Hematocrit 24.7 Low 36.3-47.1 % Performed By: #### HH #### [address] [id number] Communications Intern: Tato Ibarra MD K (POTASSIUM) Collected: 4 4:23 PM Status: F Source: [facility] TYPE CODE TESTS RESULT OUT OF RANGE REFERENCE UNITS LAB K(LOINC) K (Potassium) 3.3 Low 3.7-5.3 mmol/L Performed By: #### K #### [address] [address] Communications Intern: Tato Ibarra MD HGB/HCT Collected: 4 4:23 PM Status: F Source: [facility] TYPE CODE TESTS RESULT OUT OF RANGE REFERENCE UNITS LAB HGB(LOINC) Hemoglobin 8.6 Low 11.9-15.1 g/dL LAB HCT(LOINC) Hematocrit 27.3 Low 36.3-47.1 % Performed By: #### HH #### [address] [id number] Communications Intern: Tato Ibarra MD HGB/HCT Collected: 4 10:59 AM Status: F Source: [facility] TYPE CODE TESTS RESULT OUT OF RANGE REFERENCE UNITS LAB HGB(LOINC) Hemoglobin 8.1 Low 11.9-15.1 g/dL LAB HCT(LOINC) Hematocrit 26.5 Low 36.3-47.1 % Performed By: #### HH #### [facility] [address] [place] [phone] Communications Intern: Tato Ibarra MD TROPONIN Collected: 4 10:59 AM Status: F Source: [facility] TYPE CODE TESTS RESULT OUT OF RANGE REFERENCE UNITS LAB HSTROP(LOINC) Troponin, High Sens 83 High alert 0-14 ng/L Result Comment: High Sensiti vity Troponin values cannot be compared with other Troponin methodologies. Previous Alert Value Reported Performed By: #### TROPI ### # [facility] [address] [place] [phone] Communications Intern: Tato Ibarra MD CALCIUM, IONIC Collected: 4 5:16 AM Status: F Source: [facility] TYPE CODE TESTS RESULT OUT OF RANGE REFERENCE UNITS LAB IOCA(LOINC) Calcium, Ionic 1.12 Low 1.13-1.33 mmol/L Performed By: #### TROPI, BM PX, MG, CDP, IOCAL #### [facility] [address] [place] [phone] Communications Intern: Tato Ibarra MD BASIC METAB W/RFX MG Collected: 01/08/2024 5:16 AM S tatus: F Source: [facility] TYPE CODE TESTS RESULT OUT OF RANGE REFERENCE UNITS LAB NA(LOINC) NA (Sodium) 135 Low 136-145 mmol/L LAB K(LOINC) K (Potassium) 3.0 Low 3.7-5.3 mmol/L LAB CL(LOINC) Chloride 97 Low 98-107 mmol/L LAB HCO(LOINC) CO2 24 20-31 mmol/L LAB GAP(LOINC) Anion Gap 14 9-16 mmol/L LAB GLU(LOINC) Glucose 104 High 74-99 mg/dL LAB BUN(LOINC) BUN (Urea N) 4 Low 6-20 mg/dL LAB CRE(LOINC) Creatinine 0.3 Low 0.50-0.90 mg/dL LAB EGFR(LOINC) eGFR >90 >60 mL/min/1. 73m2 Result Comment: These results are not intended [...] following therapy that affects renal tubular secretion. LAB CA(LOINC) Calcium 8.3 Low 8.6-10.4 mg/dL Performed By: #### TROPI, BM PX, MG, CDP, IOCAL #### [facility] [employer] [address] [place] [address] [phone] Communications Intern: Tato Ibarra MD MAGNESIUM Collected: 5:16 AM Status: F Source: [facility] TYPE CODE TESTS RESULT OUT OF RANGE REFERENCE UNITS LAB MG(LOINC) Magnesium 1.8 1.6-2.6 mg/dL Performed By: #### TROPI, BM PX, MG, CDP, IOCAL #### [facility] [employer] [address] [place] [address] [phone] Communications Intern: Ttao Ibarra MD TROPONIN Collected: 01/08/2024 5:16 AM Status: F Source: [facility] TYPE CODE TESTS RESULT OUT OF RANGE REFERENCE UNITS LAB HSTROP(LOINC) Troponin, High Sens 84 High alert 0-14 ng/L Result Comment: High Sensiti vity Troponin values cannot be compared with other Troponin methodologies. Performed By: #### TROPI, BM PX, MG, CDP, IOCAL #### [facility] [employer] [address] [place] [address] [phone] Communications Intern: Tato Ibarra MD CBC WITH DIFF Collected: 5:16 AM Status: F Source: [facility] TYPE CODE TESTS RESULT OUT OF RANGE REFERENCE UNITS LAB WBC(LOINC) WBC Count 9.6 3.5-11.3 k/uL LAB RBC(LOINC) RBC Count 2.88 Low 3.95-5.11 m/uL LAB HGB(LOINC) Hemoglobin 8.8 Low 11.9-15.1 g/dL LAB HCT(LOINC) Hematocrit 27.2 Low 36.3-47.1 % LAB MCV(LOINC) MCV 94.4 82.6-102.9 fL LAB MCH(LOINC) MCH 30.6 25.2-33.5 pg LAB MCHC(LOINC) MCHC 32.4 28.4-34.8 g/dL LAB RDW(LOINC) RDW 20.6 High 11.8-14.4 % LAB PLT(LOINC) Platelet Count 268 138-453 k/uL LAB MPVX(LOINC) MPV 10.5 8.1-13.5 fL LAB NRBCS(LOINC) NRBC Automated 0.0 0.0 per 100 WBC LAB IGRAN(LOINC) Immature Granulocyte 0 0 % LAB SEG(LOINC) Neutrophil (Seg) 81 High 36-66 % LAB LYM(LOINC) Lymphocyte 12 Low 24-44 % LAB MON(LOINC) Monocyte 7 1-7 % LAB EO(LOINC) Eosinophil 0 Low 1-4 % LAB BASO(LOINC) Basophil 0 0-2 % LAB AIGRAN(LOINC) Abs.Imm.Granul ocyte 0.00 0.00-0.30 k/uL LAB ASEG(LOINC) Abs.Neutrophil (Seg) 7.78 High 1.8-7.7 k/uL LAB ALYM(LOINC) Abs. Lymph 1.15 1.0-4.8 k/uL LAB AMONO(LOINC) Abs. Monocyte 0.67 0.1-0.8 k/uL LAB AEO(LOINC) Abs. Eosinophil 0.00 0.0-0.4 k/uL LAB ABASO(LOINC) Abs. Basophil 0.00 0.0-0.2 k/uL LAB MORPH(LOINC) Morphology ANISOCYTOSIS PRESENT Performed By: #### TROPI, BM PX, MG, CDP, IOCAL #### [facility] [place] [address] Communications Intern: Tato Ibarra MD XR CHEST PORTABLE Observed: 01/08/2024 1:53 AM Status: F Source: [facility] EXAMINATION: ONE XRAY VIEW OF THE CHEST [...] by: Gildardo Caraballo MD 01/08/24 Final result HGB/HCT Collected: 4 12:43 AM Status: F Source: [facility] TYPE CODE TESTS RESULT OUT OF RANGE REFERENCE UNITS LAB HGB(LOINC) Hemoglobin 8.0 Low 11.9-15.1 g/dL LAB HCT(LOINC) Hematocrit 26.0 Low 36.3-47.1 % Performed By: #### TROPI, #### [facility] [address] [place] [address] [phone] Communications Intern: Tato Ibarra MD TROPONIN Collected: 4 12:43 AM Status: F Source: [facility] TYPE CODE TESTS RESULT OUT OF RANGE REFERENCE UNITS LAB HSTROP(LOINC) Troponin, High Sens 42 High 0-14 ng/L Result Comment: High Sensiti vity Troponin values cannot be compared with other Troponin methodologies. Performed By: #### TROPI, #### [facility] [address] [place] [phone] Communications Intern: Tato Ibarra MD GLUCOSE,WHOLE BLOOD Collected: 01/07/20 24 7:56 PM Status: F Source: [facility] TYPE CODE TESTS RESULT OUT OF RANGE REFERENCE UNITS LAB FGLU(LOINC) Glucose,Whol e Blood 97 65-105 mg/dL NICOTINE Collected: 4 7:44 PM Status: F Source: [facility] TYPE CODE TESTS RESULT OUT OF RANGE REFERENCE UNITS LAB NICOT(LOINC) Nicotine <5 ng/mL Result Comment: (NOTE) INTERPRETIVE INFORMATION: Nicotine and Metabolites, Serum or [...] developed and its performance characteristics determined by [facility]. It has not been cleared or approved by the [place] Food and Drug Administration. This test was performed in a CLIA certified laboratory and is intended for clinical purposes. Performed By: [facility] [address] [place] [address] Straightener And Aligner: José Jackson MD, PhD CLIA Number: [id number] LAB COTIN(LOINC) Cotinine <5 ng/mL Performed By: #### ANICOT ## ## [facility] [address] [place] [address] Communications Intern: Sunny Fernandes MD HGB/HCT Collected: 4 7:44 PM Status: F Source: [facility] TYPE CODE TESTS RESULT OUT OF RANGE REFERENCE UNITS LAB HGB(LOINC) Hemoglobin 7.1 Low 11.9-15.1 g/dL LAB HCT(LOINC) Hematocrit 21.9 Low 36.3-47.1 % Performed By: #### HH #### [facility] [place] [address] Communications Intern: Tato Ibarra MD HGB/HCT Collected: 4 2:38 PM Status: F Source: [facility] TYPE CODE TESTS RESULT OUT OF RANGE REFERENCE UNITS LAB HGB(LOINC) Hemoglobin 8.2 Low 11.9-15.1 g/dL LAB HCT(LOINC) Hematocrit 26.5 Low 36.3-47.1 % Performed By: #### HH #### [facility] [address] [place] [address] [phone] Communications Intern: Tato Ibarra MD K (POTASSIUM) Collected: 4 2:38 PM Status: F Source: [facility] TYPE CODE TESTS RESULT OUT OF RANGE REFERENCE UNITS LAB K(LOINC) K (Potassium) 3.7 3.7-5.3 mmol/L Performed By: #### K #### [facility] [address] [place] [address] [phone] Communications Intern: Tato Ibarra MD GLUCOSE,WHOLE BLOOD Collected: 01/07/20 12:40 PM Status: F Source: [facility] TYPE CODE TESTS RESULT OUT OF RANGE REFERENCE UNITS LAB FGLU(LOINC) Glucose,Whol e Blood 100 65-105 mg/dL CALCIUM, IONIC Collected: 4 5:04 AM Status: F Source: [facility] TYPE CODE TESTS RESULT OUT OF RANGE REFERENCE UNITS LAB IOCA(LOINC) Calcium, Ionic 1.11 Low 1.13-1.33 mmol/L Performed By: #### IOCAL, MG , CDP, BMPX #### [facility] [address] [place] [address] [phone] Communications Intern: Tato Ibarra MD BASIC METAB W/RFX MG Collected: 01/07/2024 5:04 AM S tatus: F Source: [facility] TYPE CODE TESTS RESULT OUT OF RANGE REFERENCE UNITS LAB NA(LOINC) NA (Sodium) 139 136-145 mmol/L LAB K(LOINC) K (Potassium) 3.2 Low 3.7-5.3 mmol/L Result Comment: SPECIMEN SLI GHTLY HEMOLYZED, RESULTS MAY BE ADVERSELY AFFECTED. LAB CL(LOINC) Chloride 107 98-107 mmol/L LAB HCO(LOINC) CO2 24 20-31 mmol/L LAB GAP(LOINC) Anion Gap 8 Low 9-16 mmol/L LAB GLU(LOINC) Glucose 88 74-99 mg/dL LAB BUN(LOINC) BUN (Urea N) 8 6-20 mg/dL LAB CRE(LOINC) Creatinine 0.4 Low 0.50-0.90 mg/dL LAB EGFR(LOINC) eGFR >90 >60 mL/min/1. 73m2 Result Comment: These results are not intended [...] following therapy that affects renal tubular secretion. LAB CA(LOINC) Calcium 7.5 Low 8.6-10.4 mg/dL Performed By: #### IOCAL, MG , CDP, BMPX #### [facility] [place], [place] [phone] Communications Intern: Tato Ibarra MD MAGNESIUM Collected: 4 5:04 AM Status: F Source: [facility] TYPE CODE TESTS RESULT OUT OF RANGE REFERENCE UNITS LAB MG(LOINC) Magnesium 2.1 1.6-2.6 mg/dL Performed By: #### IOCAL, MG , CDP, BMPX #### [facility] [place], [place] [phone] Communications Intern: Tato Ibarra MD CBC WITH DIFF Collected: 4 5:04 AM Status: F Source: [facility] TYPE CODE TESTS RESULT OUT OF RANGE REFERENCE UNITS LAB WBC(LOINC) WBC Count 5.8 3.5-11.3 k/uL LAB RBC(LOINC) RBC Count 2.45 Low 3.95-5.11 m/uL LAB HGB(LOINC) Hemoglobin 7.2 Low 11.9-15.1 g/dL LAB HCT(LOINC) Hematocrit 23.2 Low 36.3-47.1 % LAB MCV(LOINC) MCV 94.7 82.6-102.9 fL LAB MCH(LOINC) MCH 29.4 25.2-33.5 pg LAB MCHC(LOINC) MCHC 31.0 28.4-34.8 g/dL LAB RDW(LOINC) RDW 22.0 High 11.8-14.4 % LAB PLT(LOINC) Platelet Count 197 138-453 k/uL LAB MPVX(LOINC) MPV 11.4 8.1-13.5 fL LAB NRBCS(LOINC) NRBC Automated 0.0 0.0 per 100 WBC LAB IGRAN(LOINC) Immature Granulocyte 0 0 % LAB SEG(LOINC) Neutrophil (Seg) 68 High 36-65 % LAB LYM(LOINC) Lymphocyte 21 Low 24-43 % LAB MON(LOINC) Monocyte 8 3-12 % LAB EO(LOINC) Eosinophil 2 1-4 % LAB BASO(LOINC) Basophil 1 0-2 % LAB AIGRAN(LOINC) Abs.Imm.Granul ocyte 0.00 0.00-0.30 k/uL LAB ASEG(LOINC) Abs.Neutrophil (Seg) 3.94 1.50-8.10 k/uL LAB ALYM(LOINC) Abs. Lymph 1.22 1.10-3.70 k/uL LAB AMONO(LOINC) Abs. Monocyte 0.46 0.10-1.20 k/u L LAB AEO(LOINC) Abs. Eosinophil 0.12 0.00-0.44 k/uL LAB ABASO(LOINC) Abs. Basophil 0.06 0.00-0.20 k/u L LAB MORPH(LOINC) Morphology ANISOCYTOSIS PRESENT Performed By: #### IOCAL, MG , CDP, BMPX #### [facility] [address] [place] [address] Communications Intern: Tato Ibarra MD GLUCOSE,WHOLE BLOOD Collected: 01/07/20 24 2:19 AM Status: F Source: [facility] TYPE CODE TESTS RESULT OUT OF RANGE REFERENCE UNITS LAB FGLU(LOINC) Glucose,Whol e Blood 89 65-105 mg/dL HGB/HCT Collected: 4 10:02 PM Status: F Source: [facility] TYPE CODE TESTS RESULT OUT OF RANGE REFERENCE UNITS LAB HGB(LOINC) Hemoglobin 7.5 Low 11.9-15.1 g/dL LAB HCT(LOINC) Hematocrit 23.4 Low 36.3-47.1 % Performed By: #### HH #### [facility] [place] [address] Communications Intern: Tato Ibarra MD HGB/HCT Collected: 4 3:46 PM Status: F Source: [facility] TYPE CODE TESTS RESULT OUT OF RANGE REFERENCE UNITS LAB HGB(LOINC) Hemoglobin 7.8 Low 11.9-15.1 g/dL LAB HCT(LOINC) Hematocrit 23.9 Low 36.3-47.1 % Performed By: #### HH #### [facility] [place] [address] Communications Intern: Tato Ibarra MD TROPONIN Collected: 01/06/2024 3:46 PM Status: F Source: [facility] TYPE CODE TESTS RESULT OUT OF RANGE REFERENCE UNITS LAB HSTROP(LOINC) Troponin, High Sens 9 0-14 ng/L Result Comment: High Sensiti vity Troponin values cannot be compared with other Troponin methodologies. Performed By: #### TROPI ### # [facility] [address] [place] [address] [phone] Communications Intern: Tato Ibarra MD CT CHEST WO CONTRAST Observed: 4 2:40 PM Status: F Source: [facility] EXAMINATION: CT OF THE CHEST WITHOUT CONTRAST [...] by: Cory Bella MD 01/06/24 Final result CTA ABDOMEN PELVIS W WO CONTRAST Observed: 01/06/2024 2:33 PM Status: F Source: [facility] EXAMINATION: CTA OF THE ABDOMEN AND PELVIS [...] helpful for further evaluation. Interpreted by: Dain Rodriguez MD Signed by: Dain Rodriguez MD 01/06/24 Final result TROPONIN Collected: 12:48 PM Status: F Source: [facility] TYPE CODE TESTS RESULT OUT OF RANGE REFERENCE UNITS LAB HSTROP(LOINC) Troponin, High Sens 9 0-14 ng/L Result Comment: High Sensiti vity Troponin values cannot be compared with other Troponin methodologies. Performed By: #### TROPI ### # [facility] [employer] [address] [place] [address] Communications Intern: Tato Ibarra MD CBC WITH DIFF Collected: 4 10:04 AM Status: F Source: [facility] TYPE CODE TESTS RESULT OUT OF RANGE REFERENCE UNITS LAB WBC(LOINC) WBC Count 7.2 3.5-11.3 k/uL LAB RBC(LOINC) RBC Count 2.28 Low 3.95-5.11 m/uL LAB HGB(LOINC) Hemoglobin 6.9 Low alert 11.9-15.1 g/dL LAB HCT(LOINC) Hematocrit 22.4 Low 36.3-47.1 % LAB MCV(LOINC) MCV 98.2 82.6-102.9 fL LAB MCH(LOINC) MCH 30.3 25.2-33.5 pg LAB MCHC(LOINC) MCHC 30.8 28.4-34.8 g/dL LAB RDW(LOINC) RDW 19.9 High 11.8-14.4 % LAB PLT(LOINC) Platelet Count 195 138-453 k/uL LAB MPVX(LOINC) MPV 10.6 8.1-13.5 fL LAB NRBCS(LOINC) NRBC Automated 0.0 0.0 per 100 WBC LAB RCOM(LOINC) RBC Morphology ANISOCYTOSIS PRESENT LAB SEG(LOINC) Neutrophil (Seg) 78 High 36-65 % LAB LYM(LOINC) Lymphocyte 14 Low 24-43 % LAB MON(LOINC) Monocyte 7 3-12 % LAB EO(LOINC) Eosinophil 0 Low 1-4 % LAB BASO(LOINC) Basophil 0 0-2 % LAB IGRAN(LOINC) Immature Granulocyte 1 High 0 % LAB ASEG(LOINC) Abs.Neutrophil (Seg) 5.60 1.50-8.10 k/uL LAB ALYM(LOINC) Abs. Lymph 0.99 Low 1.10-3.70 k/uL LAB AMONO(LOINC) Abs. Monocyte 0.53 0.10-1.20 k/u L LAB AEO(LOINC) Abs. Eosinophil 0.03 0.00-0.44 k/uL LAB ABASO(LOINC) Abs. Basophil <0.03 0.00-0.20 k/u L LAB AIGRAN(LOINC) Abs.Imm.Granul ocyte 0.04 0.00-0.30 k/uL Performed By: #### IOCAL, BM PX, MG, TROPI, LACTIC, CDP, LIVP #### [facility] [address] [place] [address] [phone] Communications Intern: Tato Ibarra MD LACTIC ACID Collected: 4 10:04 AM Status: F Source: [facility] TYPE CODE TESTS RESULT OUT OF RANGE REFERENCE UNITS LAB LACWB(LOINC) Lactic Acid,Whole Bl 1.4 0.7-2.1 mmol/L Performed By: #### IOCAL, BM PX, MG, TROPI, LACTIC, CDP, LIVP #### [facility] [employer] [address] [place] [address] [phone] Communications Intern: Tato Ibarra MD CALCIUM, IONIC Collected: 4 10:04 AM Status: F Source: [facility] TYPE CODE TESTS RESULT OUT OF RANGE REFERENCE UNITS LAB IOCA(LOINC) Calcium, Ionic 1.07 Low 1.13-1.33 mmol/L Performed By: #### IOCAL, BM PX, MG, TROPI, LACTIC, CDP, LIVP #### [facility] [employer] [address] [place] [address] [phone] Communications Intern: Tato Ibarra MD BASIC METAB W/RFX MG Collected: 024 10:04 AM Status: F Source: [facility] TYPE CODE TESTS RESULT OUT OF RANGE REFERENCE UNITS LAB NA(LOINC) NA (Sodium) 142 136-145 mmol/L LAB K(LOINC) K (Potassium) 3.7 3.7-5.3 mmol/L LAB CL(LOINC) Chloride 111 High 98-107 mmol/L LAB HCO(LOINC) CO2 24 20-31 mmol/L LAB GAP(LOINC) Anion Gap 7 Low 9-16 mmol/L LAB GLU(LOINC) Glucose 103 High 74-99 mg/dL LAB BUN(LOINC) BUN (Urea N) 14 6-20 mg/dL LAB CRE(LOINC) Creatinine 0.4 Low 0.50-0.90 mg/dL LAB EGFR(LOINC) eGFR >90 >60 mL/min/1. 73m2 Result Comment: These results are not intended [...] following therapy that affects renal tubular secretion. LAB CA(LOINC) Calcium 7.2 Low 8.6-10.4 mg/dL Performed By: #### IOCAL, BM PX, MG, TROPI, LACTIC, CDP, LIVP #### [facility] [address] [place], [place] [phone] Communications Intern: Tato Ibarra MD LIVER PROFILE Collected: 4 10:04 AM Status: F Source: [facility] TYPE CODE TESTS RESULT OUT OF RANGE REFERENCE UNITS LAB ALB(LOINC) Albumin 2.4 Low 3.5-5.2 g/dL LAB ALP(LOINC) Alkaline Phos 87 35-104 U/L LAB ALT(LOINC) ALT 12 10-35 U/L LAB AST(LOINC) AST 30 10-35 U/L LAB TBIL(LOINC) Bilirubin, Total 0.4 0.00-1.20 mg/dL LAB DBILI(LOINC) Bilirubin, Direct 0.2 0.0-0.2 mg/dL LAB IBIL(LOINC) Bilirubin, Indirect 0.2 0.0-1.0 mg/dL LAB TP(LOINC) Protein, Total 3.8 Low 6.6-8.7 g/dL LAB GLOB(LOINC) Globulin Fraction 1.4 g/dL LAB AG(LOINC) Albumin/Glob Ratio 2.0 1.0-2.5 Performed By: #### IOCAL, BM PX, MG, TROPI, LACTIC, CDP, LIVP #### [facility] [address] [place] [address] [phone] Communications Intern: Tato Iabrra MD MAGNESIUM Collected: 10:04 AM Status: F Source: [facility] TYPE CODE TESTS RESULT OUT OF RANGE REFERENCE UNITS LAB MG(LOINC) Magnesium 1.9 1.6-2.6 mg/dL Performed By: #### IOCAL, BM PX, MG, TROPI, LACTIC, CDP, LIVP #### [facility] [employer] [address] [place] [phone] Communications Intern: Tato Ibarra MD TROPONIN Collected: 10:04 AM Status: F Source: [facility] TYPE CODE TESTS RESULT OUT OF RANGE REFERENCE UNITS LAB HSTROP(LOINC) Troponin, High Sens 8 0-14 ng/L Result Comment: High Sensiti vity Troponin values cannot be compared with other Troponin methodologies. Performed By: #### IOCAL, BM PX, MG, TROPI, LACTIC, CDP, LIVP #### [facility] [employer] [address] [place] [address] [phone] Communications Intern: Tato Ibarra MD PT Collected: 01/06/2024 10:04 AM Status: F Source: [facility] TYPE CODE TESTS RESULT OUT OF RANGE REFERENCE UNITS LAB PTR(LOINC) Prothrombin Time 13.6 11.7-14.9 se c LAB INR(LOINC) INR 1.1 Result Comment: Therapeutic Range: Moderate Anticoagulant Intensity: INR = 2.0-3.0 High Anticoagulant Intensity: INR = 2.5-3.5 Performed By: #### PT #### [facility] [employer] [address] [place] [phone] Communications Intern: Tato Ibarra MD TYPE + SCREEN Observed: 01/06/2024 10:04 AM Status: F Source: [facility] Sample Expiration 01/09/2024 ,2359 Arm Band Number [id number] ABO/Rh(D) O NEGATIVE Antibody Screen NEGATIVE Unit Number [id number] Blood Component Type Leukocyte Reduced Red Cell Unit Division 00 Status of Unit TRANSFUSED Transfusion Status OK TO TRANSFUSE Crossmatch Result COMPATIBLE Unit Number [id number] Blood Component Type Leukocyte Reduced Red Cell Unit Division 00 Status of Unit REL FROM ALLOC Transfusion Status DO NOT ISSUE FOR TRANSFUSION Crossmatch Result NOT TESTED Performed By: #### TYS #### [address] [phone] Communications Intern: Tato Ibarra MD MRSA, DNA, NASAL Collected: 01/06/2024 9:42 AM Statu s: F Source: [facility] TYPE CODE TESTS RESULT OUT OF RANGE REFERENCE UNITS LAB MRSASC(INC) Specimen Description .NASAL SWAB LAB MRSARE(INC) MRSA, DNA, Nasal NEGATIVE NEG Result Comment: NEGATIVE: MR SA DNA not detected by nucleic acid amplification. Results should be used as an adjunct to nosocomial control efforts to identify patients needing enhanced precautions. The test is not intended to identify patients with staphylococcal infections. Results should not be used to guide or monitor treatment for MRSA infections. Performed By: #### MRSANO ## ## [address] [id number] Communications Intern: Tato Ibarra MD K (POTASSIUM) Collected: 4 4:27 PM Status: F Source: [facility] TYPE CODE TESTS RESULT OUT OF RANGE REFERENCE UNITS LAB K(LOINC) K (Potassium) 3.4 Low 3.7-5.3 mmol/L Performed By: #### K #### [address] [phone] Communications Intern: Tato Ibarra MD HGB/HCT Collected: 4 4:27 PM Status: F Source: [facility] TYPE CODE TESTS RESULT OUT OF RANGE REFERENCE UNITS LAB HGB(LOINC) Hemoglobin 9.4 Low 11.9-15.1 g/dL LAB HCT(LOINC) Hematocrit 29.3 Low 36.3-47.1 % Performed By: #### HH #### [address] [phone] Communications Intern: Tato Ibarra MD CBC WITH DIFF Collected: 4 8:47 AM Status: F Source: [facility] TYPE CODE TESTS RESULT OUT OF RANGE REFERENCE UNITS LAB WBC(LOINC) WBC Count 5.2 3.5-11.3 k/uL LAB RBC(LOINC) RBC Count 2.79 Low 3.95-5.11 m/uL LAB HGB(LOINC) Hemoglobin 8.5 Low 11.9-15.1 g/dL LAB HCT(LOINC) Hematocrit 27.3 Low 36.3-47.1 % LAB MCV(LOINC) MCV 97.8 82.6-102.9 fL LAB MCH(LOINC) MCH 30.5 25.2-33.5 pg LAB MCHC(LOINC) MCHC 31.1 28.4-34.8 g/dL LAB RDW(LOINC) RDW 19.8 High 11.8-14.4 % LAB PLT(LOINC) Platelet Count 227 138-453 k/uL LAB MPVX(LOINC) MPV 10.1 8.1-13.5 fL LAB NRBCS(LOINC) NRBC Automated 0.0 0.0 per 100 WBC LAB SEG(LOINC) Neutrophil (Seg) 60 36-65 % LAB LYM(LOINC) Lymphocyte 28 24-43 % LAB MON(LOINC) Monocyte 10 3-12 % LAB EO(LOINC) Eosinophil 2 1-4 % LAB BASO(LOINC) Basophil 0 0-2 % LAB IGRAN(LOINC) Immature Granulocyte 0 0 % LAB ASEG(LOINC) Abs.Neutrophil (Seg) 3.15 1.50-8.10 k/uL LAB ALYM(LOINC) Abs. Lymph 1.45 1.10-3.70 k/uL LAB AMONO(LOINC) Abs. Monocyte 0.51 0.10-1.20 k/u L LAB AEO(LOINC) Abs. Eosinophil 0.08 0.00-0.44 k/uL LAB ABASO(LOINC) Abs. Basophil <0.03 0.00-0.20 k/u L LAB AIGRAN(LOINC) Abs.Imm.Granul ocyte <0.03 0.00-0.30 k/uL LAB RCOM(LOINC) RBC Morphology ANISOCYTOSIS PRESENT Performed By: #### CDP, BMP #### [facility] [address] [place], [place] [phone] Communications Intern: Tato Ibarra MD BASIC METABOLIC PROF Collected: 01/05/2024 8:47 AM S tatus: F Source: [facility] TYPE CODE TESTS RESULT OUT OF RANGE REFERENCE UNITS LAB NA(LOINC) NA (Sodium) 139 136-145 mmol/L LAB K(LOINC) K (Potassium) 2.8 Low alert 3.7-5.3 mmol/L LAB CL(LOINC) Chloride 103 98-107 mmol/L LAB HCO(LOINC) CO2 27 20-31 mmol/L LAB GAP(LOINC) Anion Gap 9 9-16 mmol/L LAB GLU(LOINC) Glucose 85 74-99 mg/dL LAB BUN(LOINC) BUN (Urea N) 3 Low 6-20 mg/dL LAB CRE(LOINC) Creatinine 0.3 Low 0.50-0.90 mg/dL LAB EGFR(LOINC) eGFR >90 >60 mL/min/1. 73m2 Result Comment: These results are not intended [...] following therapy that affects renal tubular secretion. LAB CA(LOINC) Calcium 8.0 Low 8.6-10.4 mg/dL Performed By: #### CDP, [facility] #### [facility] [address] [place] [address] [id number] Communications Intern: Tato Ibarra MD HGB/HCT Collected: 4 5:44 PM Status: F Source: [facility] TYPE CODE TESTS RESULT OUT OF RANGE REFERENCE UNITS LAB HGB(LOINC) Hemoglobin 8.9 Low 11.9-15.1 g/dL LAB HCT(LOINC) Hematocrit 27.8 Low 36.3-47.1 % Performed By: #### #### [facility] [address] [place] [address] [phone] Communications Intern: Tato Ibarra MD BASIC METABOLIC PROF Collected: 01/04/2024 4:57 AM S tatus: F Source: [facility] TYPE CODE TESTS RESULT OUT OF RANGE REFERENCE UNITS LAB NA(LOINC) NA (Sodium) 138 136-145 mmol/L LAB K(LOINC) K (Potassium) 3.1 Low 3.7-5.3 mmol/L LAB CL(LOINC) Chloride 104 98-107 mmol/L LAB HCO(LOINC) CO2 24 20-31 mmol/L LAB GAP(LOINC) Anion Gap 10 9-16 mmol/L LAB GLU(LOINC) Glucose 97 74-99 mg/dL LAB BUN(LOINC) BUN (Urea N) 3 Low 6-20 mg/dL LAB CRE(LOINC) Creatinine 0.3 Low 0.50-0.90 mg/dL LAB EGFR(LOINC) eGFR >90 >60 mL/min/1. 73m2 Result Comment: These results are not intended [...] following therapy that affects renal tubular secretion. LAB CA(LOINC) Calcium 8.0 Low 8.6-10.4 mg/dL Performed By: #### BMP, CDP #### [facility] [address] [place] [phone] Communications Intern: Tato Ibarra MD CBC WITH DIFF Collected: 4:57 AM Status: F Source: [facility] TYPE CODE TESTS RESULT OUT OF RANGE REFERENCE UNITS LAB WBC(LOINC) WBC Count 6.8 3.5-11.3 k/uL LAB RBC(LOINC) RBC Count 2.81 Low 3.95-5.11 m/uL LAB HGB(LOINC) Hemoglobin 8.8 Low 11.9-15.1 g/dL LAB HCT(LOINC) Hematocrit 27.7 Low 36.3-47.1 % LAB MCV(LOINC) MCV 98.6 82.6-102.9 fL LAB MCH(LOINC) MCH 31.3 25.2-33.5 pg LAB MCHC(LOINC) MCHC 31.8 28.4-34.8 g/dL LAB RDW(LOINC) RDW 21.1 High 11.8-14.4 % LAB PLT(LOINC) Platelet Count 234 138-453 k/uL LAB MPVX(LOINC) MPV 9.4 8.1-13.5 fL LAB NRBCS(LOINC) NRBC Automated 0.0 0.0 per 100 WBC LAB IGRAN(LOINC) Immature Granulocyte 1 High 0 % LAB SEG(LOINC) Neutrophil (Seg) 71 High 36-65 % LAB LYM(LOINC) Lymphocyte 16 Low 24-43 % LAB MON(LOINC) Monocyte 11 3-12 % LAB EO(LOINC) Eosinophil 1 1-4 % LAB BASO(LOINC) Basophil 0 0-2 % LAB AIGRAN(LOINC) Abs.Imm.Granul ocyte 0.07 0.00-0.30 k/uL LAB ASEG(LOINC) Abs.Neutrophil (Seg) 4.82 1.50-8.10 k/uL LAB ALYM(LOINC) Abs. Lymph 1.09 Low 1.10-3.70 k/uL LAB AMONO(LOINC) Abs. Monocyte 0.75 0.10-1.20 k/u L LAB AEO(LOINC) Abs. Eosinophil 0.07 0.00-0.44 k/uL LAB ABASO(LOINC) Abs. Basophil 0.00 0.00-0.20 k/u L LAB MORPH(LOINC) Morphology ANISOCYTOSIS PRESENT Performed By: #### BMP, CDP #### [facility] [address] [place] [phone] Communications Intern: Tato Ibarra MD HGB/HCT Collected: 4 9:42 PM Status: F Source: [facility] TYPE CODE TESTS RESULT OUT OF RANGE REFERENCE UNITS LAB HGB(INC) Hemoglobin 9.3 Low 11.9-15.1 g/dL LAB HCT(LOINC) Hematocrit 28.3 Low 36.3-47.1 % Performed By: #### HH #### [facility] [address] [place] [address] [phone] Communications Intern: Tato Ibarra MD HGB/HCT Collected: 12:45 PM Status: F Source: [facility] TYPE CODE TESTS RESULT OUT OF RANGE REFERENCE UNITS LAB HGB(LOINC) Hemoglobin 9.1 Low 11.9-15.1 g/dL LAB HCT(LOINC) Hematocrit 27.3 Low 36.3-47.1 % Performed By: #### HH #### [facility] [address] [place], [place] [phone] Communications Intern: Tato Ibarra MD BASIC METAB W/RFX MG Collected: 01/03/2024 6:00 AM S tatus: F Source: [facility] TYPE CODE TESTS RESULT OUT OF RANGE REFERENCE UNITS LAB NA(LOINC) NA (Sodium) 140 136-145 mmol/L LAB K(LOINC) K (Potassium) 3.4 Low 3.7-5.3 mmol/L LAB CL(LOINC) Chloride 106 98-107 mmol/L LAB HCO(LOINC) CO2 24 20-31 mmol/L LAB GAP(LOINC) Anion Gap 10 9-16 mmol/L LAB GLU(LOINC) Glucose 95 74-99 mg/dL LAB BUN(LOINC) BUN (Urea N) 3 Low 6-20 mg/dL LAB CRE(LOINC) Creatinine 0.3 Low 0.50-0.90 mg/dL LAB EGFR(LOINC) eGFR >90 >60 mL/min/1. 73m2 Result Comment: These results are not intended [...] following therapy that affects renal tubular secretion. LAB CA(LOINC) Calcium 8.2 Low 8.6-10.4 mg/dL Performed By: #### CDP, BMPX , MG #### [facility] [address] [place], [place] [phone] Communications Intern: Tato Ibarra MD MAGNESIUM Collected: 4 6:00 AM Status: F Source: [facility] TYPE CODE TESTS RESULT OUT OF RANGE REFERENCE UNITS LAB MG(LOINC) Magnesium 1.8 1.6-2.6 mg/dL Performed By: #### CDP, BMPX , MG #### [facility] [place] [phone] Communications Intern: Tato Ibarra MD CBC WITH DIFF Collected: 4 6:00 AM Status: F Source: [facility] TYPE CODE TESTS RESULT OUT OF RANGE REFERENCE UNITS LAB WBC(LOINC) WBC Count 7.3 3.5-11.3 k/uL LAB RBC(LOINC) RBC Count 2.72 Low 3.95-5.11 m/uL LAB HGB(LOINC) Hemoglobin 8.6 Low 11.9-15.1 g/dL LAB HCT(LOINC) Hematocrit 25.5 Low 36.3-47.1 % LAB MCV(LOINC) MCV 93.8 82.6-102.9 fL LAB MCH(LOINC) MCH 31.6 25.2-33.5 pg LAB MCHC(LOINC) MCHC 33.7 28.4-34.8 g/dL LAB RDW(LOINC) RDW 21.8 High 11.8-14.4 % LAB PLT(LOINC) Platelet Count 220 138-453 k/uL LAB MPVX(LOINC) MPV 9.7 8.1-13.5 fL LAB NRBCS(LOINC) NRBC Automated 0.0 0.0 per 100 WBC LAB IGRAN(LOINC) Immature Granulocyte 0 0 % LAB SEG(LOINC) Neutrophil (Seg) 74 High 36-65 % LAB LYM(LOINC) Lymphocyte 17 Low 24-43 % LAB MON(LOINC) Monocyte 9 3-12 % LAB EO(LOINC) Eosinophil 0 Low 1-4 % LAB BASO(LOINC) Basophil 0 0-2 % LAB AIGRAN(LOINC) Abs.Imm.Granul ocyte 0.00 0.00-0.30 k/uL LAB ASEG(LOINC) Abs.Neutrophil (Seg) 5.40 1.50-8.10 k/uL LAB ALYM(LOINC) Abs. Lymph 1.24 1.10-3.70 k/uL LAB AMONO(LOINC) Abs. Monocyte 0.66 0.10-1.20 k/u L LAB AEO(LOINC) Abs. Eosinophil 0.00 0.00-0.44 k/uL LAB ABASO(LOINC) Abs. Basophil 0.00 0.00-0.20 k/u L LAB MORPH(LOINC) Morphology ANISOCYTOSIS PRESENT Performed By: #### CDP, BMPX , MG #### [facility] [address] [place] [address] [phone] Communications Intern: Tato Ibarra MD CBC Collected: 4 1:27 AM Status: F Source: [facility] TYPE CODE TESTS RESULT OUT OF RANGE REFERENCE UNITS LAB WBC(LOINC) WBC Count 8.4 3.5-11.3 k/uL LAB RBC(LOINC) RBC Count 2.82 Low 3.95-5.11 m/uL LAB HGB(LOINC) Hemoglobin 9.0 Low 11.9-15.1 g/dL LAB HCT(LOINC) Hematocrit 26.2 Low 36.3-47.1 % LAB MCV(LOINC) MCV 92.9 82.6-102.9 fL LAB MCH(LOINC) MCH 31.9 25.2-33.5 pg LAB MCHC(LOINC) MCHC 34.4 28.4-34.8 g/dL LAB RDW(LOINC) RDW 22.1 High 11.8-14.4 % LAB PLT(LOINC) Platelet Count 219 138-453 k/uL LAB MPVX(LOINC) MPV 9.6 8.1-13.5 fL LAB NRBCS(LOINC) NRBC Automated 0.0 0.0 per 100 WBC Performed By: #### CBC, K ## ## [facility] [employer] [address] [place] [address] [phone] Communications Intern: Tato Ibarra MD K (POTASSIUM) Collected: 4 1:27 AM Status: F Source: [facility] TYPE CODE TESTS RESULT OUT OF RANGE REFERENCE UNITS LAB K(LOINC) K (Potassium) 3.1 Low 3.7-5.3 mmol/L Performed By: #### CBC, K ## ## [facility] [address] [place] [phone] Communications Intern: Tato Ibarra MD HGB/HCT Collected: 7:53 PM Status: F Source: [facility] TYPE CODE TESTS RESULT OUT OF RANGE REFERENCE UNITS LAB HGB(LOINC) Hemoglobin 9.1 Low 11.9-15.1 g/dL LAB HCT(LOINC) Hematocrit 26.3 Low 36.3-47.1 % Performed By: #### HH #### [facility] [address] [place], [place] [phone] Communications Intern: Tato Ibarra MD CTA ABDOMEN PELVIS W WO CONTRAST Observed: 01/02/2024 5:37 PM Status: F Source: [facility] EXAMINATION: CTA OF THE ABDOMEN AND PELVIS [...] by: Nasir Martinez MD 01/02/24 Final result GLUCOSE,WHOLE BLOOD Collected: 01/02/20 4:15 PM Status: F Source: [facility] TYPE CODE TESTS RESULT OUT OF RANGE REFERENCE UNITS LAB FGLU(LOINC) Glucose,Whol e Blood 93 65-105 mg/dL IR EMBOLIZATION HEMORRHAGE Observed: 01/2024 4:12 PM Status: F Source: [facility] PROCEDURE: IR EMBOLIZATION VASCULAR ANY HEMORRHAGE 01/01/2024 [...] for a 0.035 inch wire and 5 Swazi introducer sheath. A 5 Swazi Bren catheter was then used to selectively catheterize the celiac artery and digital angiography was performed in AP and oblique projections. Subsequently, several different catheters were used to attempt selective catheterization of the left gastric artery, ultimately successful with a 5 Swazi Cobra catheter. Digital angiography of the left [...] by: Nasir Martinez MD 01/02/24 Final result HGB/HCT Collected: 4 1:12 PM Status: F Source: [facility] TYPE CODE TESTS RESULT OUT OF RANGE REFERENCE UNITS LAB HGB(LOINC) Hemoglobin 8.5 Low 11.9-15.1 g/dL LAB HCT(LOINC) Hematocrit 25.2 Low 36.3-47.1 % Performed By: #### #### [facility] [place], [place] [phone] Communications Intern: Tato Ibarra MD HGB/HCT Collected: 9:53 AM Status: F Source: [facility] TYPE CODE TESTS RESULT OUT OF RANGE REFERENCE UNITS LAB HGB(LOINC) Hemoglobin 8.6 Low 11.9-15.1 g/dL LAB HCT(LOINC) Hematocrit 25.0 Low 36.3-47.1 % Performed By: #### #### [facility] [place], [place] [phone] Communications Intern: Tato Ibarra MD BASIC METAB W/RFX MG Collected: 01/02/2024 5:08 AM S tatus: F Source: [facility] TYPE CODE TESTS RESULT OUT OF RANGE REFERENCE UNITS LAB NA(LOINC) NA (Sodium) 141 136-145 mmol/L LAB K(LOINC) K (Potassium) 3.0 Low 3.7-5.3 mmol/L LAB CL(LOINC) Chloride 110 High 98-107 mmol/L LAB HCO(LOINC) CO2 22 20-31 mmol/L LAB GAP(LOINC) Anion Gap 9 9-16 mmol/L LAB GLU(LOINC) Glucose 105 High 74-99 mg/dL LAB BUN(LOINC) BUN (Urea N) 8 6-20 mg/dL LAB CRE(LOINC) Creatinine 0.3 Low 0.50-0.90 mg/dL LAB EGFR(LOINC) eGFR >90 >60 mL/min/1. 73m2 Result Comment: These results are not intended [...] following therapy that affects renal tubular secretion. LAB CA(LOINC) Calcium 7.8 Low 8.6-10.4 mg/dL Performed By: #### BMPX, MG, CDP #### [facility] [address] [phone] Communications Intern: Tato Ibarra MD CBC WITH DIFF Collected: 4 5:08 AM Status: F Source: [facility] TYPE CODE TESTS RESULT OUT OF RANGE REFERENCE UNITS LAB WBC(LOINC) WBC Count 6.8 3.5-11.3 k/uL LAB RBC(LOINC) RBC Count 2.70 Low 3.95-5.11 m/uL LAB HGB(LOINC) Hemoglobin 8.4 Low 11.9-15.1 g/dL LAB HCT(LOINC) Hematocrit 24.8 Low 36.3-47.1 % LAB MCV(LOINC) MCV 91.9 82.6-102.9 fL LAB MCH(LOINC) MCH 31.1 25.2-33.5 pg LAB MCHC(LOINC) MCHC 33.9 28.4-34.8 g/dL LAB RDW(LOINC) RDW 23.0 High 11.8-14.4 % LAB PLT(LOINC) Platelet Count 207 138-453 k/uL LAB MPVX(LOINC) MPV 9.3 8.1-13.5 fL LAB NRBCS(LOINC) NRBC Automated 0.0 0.0 per 100 WBC LAB IGRAN(LOINC) Immature Granulocyte 0 0 % LAB SEG(LOINC) Neutrophil (Seg) 66 High 36-65 % LAB LYM(LOINC) Lymphocyte 22 Low 24-43 % LAB MON(LOINC) Monocyte 12 3-12 % LAB EO(LOINC) Eosinophil 0 Low 1-4 % LAB BASO(LOINC) Basophil 0 0-2 % LAB AIGRAN(LOINC) Abs.Imm.Granul ocyte 0.00 0.00-0.30 k/uL LAB ASEG(LOINC) Abs.Neutrophil (Seg) 4.48 1.50-8.10 k/uL LAB ALYM(LOINC) Abs. Lymph 1.50 1.10-3.70 k/uL LAB AMONO(LOINC) Abs. Monocyte 0.82 0.10-1.20 k/u L LAB AEO(LOINC) Abs. Eosinophil 0.00 0.00-0.44 k/uL LAB ABASO(LOINC) Abs. Basophil 0.00 0.00-0.20 k/u L LAB MORPH(LOINC) Morphology ANISOCYTOSIS PRESENT Result Comment: HYPOCHROMIA PRESENT Performed By: #### BMPX, MG, CDP #### [facility] [place], [place] [phone] Communications Intern: Tato Ibarra MD MAGNESIUM Collected: 4 5:08 AM Status: F Source: [facility] TYPE CODE TESTS RESULT OUT OF RANGE REFERENCE UNITS LAB MG(LOINC) Magnesium 1.9 1.6-2.6 mg/dL Performed By: #### BMPX, MG, CDP #### [facility] [address] [place] [address] [phone] Communications Intern: Tato Ibarra MD CBC WITH DIFF Collected: 4 1:54 AM Status: F Source: [facility] TYPE CODE TESTS RESULT OUT OF RANGE REFERENCE UNITS LAB WBC(LOINC) WBC Count 6.9 3.5-11.3 k/uL LAB RBC(LOINC) RBC Count 2.79 Low 3.95-5.11 m/uL LAB HGB(LOINC) Hemoglobin 8.8 Low 11.9-15.1 g/dL LAB HCT(LOINC) Hematocrit 25.7 Low 36.3-47.1 % LAB MCV(LOINC) MCV 92.1 82.6-102.9 fL LAB MCH(LOINC) MCH 31.5 25.2-33.5 pg LAB MCHC(LOINC) MCHC 34.2 28.4-34.8 g/dL LAB RDW(LOINC) RDW 22.9 High 11.8-14.4 % LAB PLT(LOINC) Platelet Count 215 138-453 k/uL LAB MPVX(LOINC) MPV 9.2 8.1-13.5 fL LAB NRBCS(LOINC) NRBC Automated 0.0 0.0 per 100 WBC LAB IGRAN(LOINC) Immature Granulocyte 0 0 % LAB SEG(LOINC) Neutrophil (Seg) 69 High 36-65 % LAB LYM(LOINC) Lymphocyte 22 Low 24-43 % LAB MON(LOINC) Monocyte 9 3-12 % LAB EO(LOINC) Eosinophil 0 Low 1-4 % LAB BASO(LOINC) Basophil 0 0-2 % LAB AIGRAN(LOINC) Abs.Imm.Granul ocyte 0.00 0.00-0.30 k/uL LAB ASEG(LOINC) Abs.Neutrophil (Seg) 4.76 1.50-8.10 k/uL LAB ALYM(LOINC) Abs. Lymph 1.52 1.10-3.70 k/uL LAB AMONO(LOINC) Abs. Monocyte 0.62 0.10-1.20 k/u L LAB AEO(LOINC) Abs. Eosinophil 0.00 0.00-0.44 k/uL LAB ABASO(LOINC) Abs. Basophil 0.00 0.00-0.20 k/u L LAB MORPH(LOINC) Morphology ANISOCYTOSIS PRESENT Result Comment: HYPOCHROMIA PRESENT Performed By: #### CDP #### [facility] [place], [place] [phone] Communications Intern: Tato Ibarra MD COMP METABOLIC MD/RFX MG Collected: 01/01/2024 7:33 P M Status: F Source: [facility] TYPE CODE TESTS RESULT OUT OF RANGE REFERENCE UNITS LAB NA(LOINC) NA (Sodium) 137 136-145 mmol/L LAB K(LOINC) K (Potassium) 3.9 3.7-5.3 mmol/L LAB CL(LOINC) Chloride 106 98-107 mmol/L LAB HCO(LOINC) CO2 19 Low 20-31 mmol/L LAB GAP(LOINC) Anion Gap 12 9-16 mmol/L LAB GLU(LOINC) Glucose 104 High 74-99 mg/dL LAB BUN(LOINC) BUN (Urea N) 8 6-20 mg/dL LAB CRE(LOINC) Creatinine 0.3 Low 0.50-0.90 mg/dL LAB EGFR(LOINC) eGFR >90 >60 mL/min/1. 73m2 Result Comment: These results are not intended [...] following therapy that affects renal tubular secretion. LAB CA(LOINC) Calcium 7.8 Low 8.6-10.4 mg/dL LAB TP(LOINC) Protein, Total 4.5 Low 6.6-8.7 g/dL LAB ALB(LOINC) Albumin 2.7 Low 3.5-5.2 g/dL LAB AG(LOINC) Albumin/Glob Ratio 2.0 1.0-2.5 LAB TBIL(LOINC) Bilirubin, Total 0.8 0.00-1.20 mg/dL LAB ALP(LOINC) Alkaline Phos 124 High 35-104 U/L LAB ALT(LOINC) ALT 13 10-35 U/L LAB AST(LOINC) AST 42 High 10-35 U/L Performed By: #### CMPX, LIP , TROPI #### [facility] [employer] [address] [place] [address] [phone] Communications Intern: Tato Ibarra MD LIPASE Collected: 7:33 PM Status: F Source: [facility] TYPE CODE TESTS RESULT OUT OF RANGE REFERENCE UNITS LAB LIP(LOINC) Lipase 18 13-60 U/L Performed By: #### CMPX, LIP , TROPI #### [facility] [address] [place] [address] [phone] Communications Intern: Tato Ibarra MD TROPONIN Collected: 01/01/2024 7:33 PM Status: F Source: [facility] TYPE CODE TESTS RESULT OUT OF RANGE REFERENCE UNITS LAB HSTROP(LOINC) Troponin, High Sens <6 0-14 ng/L Result Comment: High Sensiti vity Troponin values cannot be compared with other Troponin methodologies. Performed By: #### CMPX, LIP , TROPI #### [facility] [employer] [address] [place] [address] [phone] Communications Intern: Tato Ibarra MD PT Collected: 01/01/2024 7:13 PM Status: F Source: [facility] TYPE CODE TESTS RESULT OUT OF RANGE REFERENCE UNITS LAB PTR(LOINC) Prothrombin Time 12.3 11.7-14.9 se c LAB INR(LOINC) INR 0.9 Result Comment: Therapeutic Range: Moderate Anticoagulant Intensity: INR = 2.0-3.0 High Anticoagulant Intensity: INR = 2.5-3.5 Performed By: #### PTT, PT # ### [address] [phone] Communications Intern: Tato Ibarra MD APTT Collected: 4 7:13 PM Status: F Source: [facility] TYPE CODE TESTS RESULT OUT OF RANGE REFERENCE UNITS LAB PTTR(INC) PTT 24.6 23.0-36.5 sec Result Comment: IV Heparin Therapy Range: 66.0-92.0 sec Performed By: #### PTT, PT # ### [address] [phone] Communications Intern: Tato Ibarra MD GLUCOSE,WHOLE BLOOD Collected: 01/01/20 24 7:13 PM Status: F Source: [facility] TYPE CODE TESTS RESULT OUT OF RANGE REFERENCE UNITS LAB FGLU(LOINC) Glucose,Whol e Blood 111 High 65-105 mg/dL CALCIUM, IONIC Collected: 4 7:10 PM Status: F Source: [facility] TYPE CODE TESTS RESULT OUT OF RANGE REFERENCE UNITS LAB IOCA(LOINC) Calcium, Ionic 1.13 1.13-1.33 mmol/L Performed By: #### IOCAL, CD P, LACDS #### [address] [phone] Communications Intern: Tato Ibarra MD LACTATE, SEPSIS Collected: 4 7:10 PM Status: F Source: [facility] TYPE CODE TESTS RESULT OUT OF RANGE REFERENCE UNITS LAB LACSWB(LOINC) Lactic Acid,Sep Wbld 0.9 0.5-1.9 mmol/L Performed By: #### IOCAL, CD P, LACDS #### [address] [phone] Communications Intern: Tato Ibarra MD CBC WITH DIFF Collected: 01/01/2024 7:10 PM Status: F Source: [facility] TYPE CODE TESTS RESULT OUT OF RANGE REFERENCE UNITS LAB WBC(LOINC) WBC Count 6.5 3.5-11.3 k/uL LAB RBC(LOINC) RBC Count 3.23 Low 3.95-5.11 m/uL LAB HGB(LOINC) Hemoglobin 10.2 Low 11.9-15.1 g/dL Result Comment: TEST CONFIRMED LAB HCT(LOINC) Hematocrit 29.9 Low 36.3-47.1 % Result Comment: TEST CONFIRMED LAB MCV(LOINC) MCV 92.6 82.6-102.9 fL LAB MCH(LOINC) MCH 31.6 25.2-33.5 pg LAB MCHC(LOINC) MCHC 34.1 28.4-34.8 g/dL LAB RDW(LOINC) RDW 22.1 High 11.8-14.4 % LAB PLT(LOINC) Platelet Count 222 138-453 k/uL LAB MPVX(LOINC) MPV 9.5 8.1-13.5 fL LAB NRBCS(LOINC) NRBC Automated 0.0 0.0 per 100 WBC LAB IGRAN(LOINC) Immature Granulocyte 1 High 0 % LAB SEG(LOINC) Neutrophil (Seg) 76 High 36-65 % LAB LYM(LOINC) Lymphocyte 17 Low 24-43 % LAB MON(LOINC) Monocyte 6 3-12 % LAB EO(LOINC) Eosinophil 0 Low 1-4 % LAB BASO(LOINC) Basophil 0 0-2 % LAB AIGRAN(LOINC) Abs.Imm.Granulo cyte 0.07 0.00-0.30 k/uL LAB ASEG(LOINC) Abs.Neutrophil (Seg) 4.93 1.50-8.10 k/uL LAB ALYM(LOINC) Abs. Lymph 1.11 1.10-3.70 k/uL LAB AMONO(LOINC) Abs. Monocyte 0.39 0.10-1.20 k/u L LAB AEO(LOINC) Abs. Eosinophil 0.00 0.00-0.44 k/u L LAB ABASO(LOINC) Abs. Basophil 0.00 0.00-0.20 k/u L LAB MORPH(LOINC) Morphology Normal Performed By: #### IOCAL, CD P, LACDS #### [address] [phone] Communications Intern: Tato Ibarra MD MRSA, DNA, NASAL Collected: 01/01/2024 5:02 PM Statu s: F Source: [facility] TYPE CODE TESTS RESULT OUT OF RANGE REFERENCE UNITS LAB [facility]) Specimen Description .NASAL SWAB LAB [facility]) MRSA, DNA, Nasal NEGATIVE NEG Result Comment: NEGATIVE: MR SA DNA not detected by nucleic acid amplification. Results should be used as an adjunct to nosocomial control efforts to identify patients needing enhanced precautions. The test is not intended to identify patients with staphylococcal infections. Results should not be used to guide or monitor treatment for MRSA infections. Performed By: #### MRSANO ## ## [address] [phone] Communications Intern: Tato Ibarra MD HGB/HCT Collected: 4 1:13 PM Status: F Source: [facility] TYPE CODE TESTS RESULT OUT OF RANGE REFERENCE UNITS LAB HGB(LOINC) Hemoglobin 7.7 Low 11.9-15.1 g/dL LAB HCT(LOINC) Hematocrit 24.2 Low 36.3-47.1 % Performed By: #### HH #### [address] [phone] Communications Intern: Tato Ibarra MD HGB/HCT Collected: 4 6:30 AM Status: F Source: [facility] TYPE CODE TESTS RESULT OUT OF RANGE REFERENCE UNITS LAB HGB(LOINC) Hemoglobin DUPLICATE ORDER 11.9-15.1 g/dL LAB HCT(LOINC) Hematocrit DUPLICATE ORDER 36.3-47.1 % Performed By: #### HH #### [address] [phone] Communications Intern: Tato Ibarra MD CBC WITH DIFF Collected: 4 4:11 AM Status: F Source: [facility] TYPE CODE TESTS RESULT OUT OF RANGE REFERENCE UNITS LAB WBC(LOINC) WBC Count 4.9 3.5-11.3 k/uL LAB RBC(LOINC) RBC Count 3.16 Low 3.95-5.11 m/uL LAB HGB(LOINC) Hemoglobin 10.6 Low 11.9-15.1 g/dL LAB HCT(LOINC) Hematocrit 32.5 Low 36.3-47.1 % LAB MCV(LOINC) MCV 102.8 82.6-102.9 fL LAB MCH(LOINC) MCH 33.5 25.2-33.5 pg LAB MCHC(LOINC) MCHC 32.6 28.4-34.8 g/dL LAB RDW(LOINC) RDW 18.6 High 11.8-14.4 % LAB PLT(LOINC) Platelet Count 220 138-453 k/uL LAB MPVX(LOINC) MPV 9.5 8.1-13.5 fL LAB NRBCS(LOINC) NRBC Automated 0.0 0.0 per 100 WBC LAB SEG(LOINC) Neutrophil (Seg) 56 36-65 % LAB LYM(LOINC) Lymphocyte 29 24-43 % LAB MON(LOINC) Monocyte 11 3-12 % LAB EO(LOINC) Eosinophil 3 1-4 % LAB BASO(LOINC) Basophil 1 0-2 % LAB IGRAN(LOINC) Immature Granulocyte 0 0 % LAB ASEG(LOINC) Abs.Neutrophil (Seg) 2.72 1.50-8.10 k/uL LAB ALYM(LOINC) Abs. Lymph 1.44 1.10-3.70 k/uL LAB AMONO(LOINC) Abs. Monocyte 0.54 0.10-1.20 k/u L LAB AEO(LOINC) Abs. Eosinophil 0.14 0.00-0.44 k/uL LAB ABASO(LOINC) Abs. Basophil 0.03 0.00-0.20 k/u L LAB AIGRAN(LOINC) Abs.Imm.Granul ocyte <0.03 0.00-0.30 k/uL LAB RCOM(LOINC) RBC Morphology ANISOCYTOSIS PRESENT Performed By: #### BMPX, GIBSON P, CDP, MG #### [facility] [address] [place], [place] [phone] Communications Intern: Tato Ibarra MD BASIC METAB W/RFX MG Collected: 01/01/2024 4:11 AM S tatus: F Source: [facility] TYPE CODE TESTS RESULT OUT OF RANGE REFERENCE UNITS LAB NA(LOINC) NA (Sodium) 139 136-145 mmol/L LAB K(LOINC) K (Potassium) 3.3 Low 3.7-5.3 mmol/L LAB CL(LOINC) Chloride 107 98-107 mmol/L LAB HCO(LOINC) CO2 23 20-31 mmol/L LAB GAP(LOINC) Anion Gap 9 9-16 mmol/L LAB GLU(LOINC) Glucose 86 74-99 mg/dL LAB BUN(LOINC) BUN (Urea N) <1 Low 6-20 mg/dL LAB CRE(LOINC) Creatinine 0.3 Low 0.50-0.90 mg/dL LAB EGFR(LOINC) eGFR >90 >60 mL/min/1. 73m2 Result Comment: These results are not intended [...] following therapy that affects renal tubular secretion. LAB CA(LOINC) Calcium 8.5 Low 8.6-10.4 mg/dL Performed By: #### BMPX, GIBSON P, CDP, MG #### [facility] [place], [place] [phone] Communications Intern: Tato Ibarra MD LIVER PROFILE Collected: 4:11 AM Status: F Source: [facility] TYPE CODE TESTS RESULT OUT OF RANGE REFERENCE UNITS LAB ALB(LOINC) Albumin 2.8 Low 3.5-5.2 g/dL LAB ALP(LOINC) Alkaline Phos 161 High 35-104 U/L LAB ALT(LOINC) ALT 10 10-35 U/L LAB AST(LOINC) AST 40 High 10-35 U/L LAB TBIL(LOINC) Bilirubin, Total 0.3 0.00-1.20 mg/dL LAB DBILI(LOINC) Bilirubin, Direct <0.2 0.0-0.2 mg/dL LAB IBIL(LOINC) Bilirubin, Indirect Can not be calculated 0.0-1.0 mg/dL LAB TP(LOINC) Protein, Total 5.0 Low 6.6-8.7 g/dL LAB GLOB(LOINC) Globulin Fraction 2.2 g/dL LAB AG(LOINC) Albumin/Glob Ratio 1.0 1.0-2.5 Performed By: #### BMPX, GIBSON P, CDP, MG #### [facility] [address] [place] [address] [phone] Communications Intern: Tato Ibarra MD MAGNESIUM Collected: 4 4:11 AM Status: F Source: [facility] TYPE CODE TESTS RESULT OUT OF RANGE REFERENCE UNITS LAB MG(LOINC) Magnesium 2.0 1.6-2.6 mg/dL Performed By: #### BMPX, GIBSON P, CDP, MG #### [facility] [address] [place] [address] [phone] Communications Intern: Tato Ibarra MD HGB/HCT Collected: 4 1:44 AM Status: F Source: [facility] TYPE CODE TESTS RESULT OUT OF RANGE REFERENCE UNITS LAB HGB(LOINC) Hemoglobin 10.3 Low 11.9-15.1 g/dL LAB HCT(LOINC) Hematocrit 31.8 Low 36.3-47.1 % Performed By: #### HH #### [facility] [address] [place] [address] [phone] Communications Intern: Tato Ibarra MD HGB/HCT Collected: 4 6:15 PM Status: F Source: [facility] TYPE CODE TESTS RESULT OUT OF RANGE REFERENCE UNITS LAB HGB(LOINC) Hemoglobin 11.3 Low 11.9-15.1 g/dL LAB HCT(LOINC) Hematocrit 34.6 Low 36.3-47.1 % Performed By: #### HH #### [facility] [address] [place] [address] [phone] Communications Intern: Tato Ibarra MD HGB/HCT Collected: 12:22 PM Status: F Source: [facility] TYPE CODE TESTS RESULT OUT OF RANGE REFERENCE UNITS LAB HGB(LOINC) Hemoglobin 10.8 Low 11.9-15.1 g/dL LAB HCT(LOINC) Hematocrit 33.1 Low 36.3-47.1 % Performed By: #### HH #### [address] [id number] Communications Intern: Tato Ibarra MD C DIFF AG + TOXIN Collected: 12/31/2023 7:58 AM Stat us: F Source: [facility] TYPE CODE TESTS RESULT OUT OF RANGE REFERENCE UNITS LAB CDQSPE([facility]) Specimen Description .FECES LAB CDIFFQ(LOINC) C diff Ag + Toxin NEGATIVE NEG Result Comment: No C. diffic ile antigen and Toxin Detected. Performed By: #### CDIFQ, FL ACT, STLPCR #### [address] [id number] Communications Intern: Tato Ibarra MD STOOL PCR BATTERY Collected: 12/31/2023 7:58 AM Stat us: F Source: [facility] TYPE CODE TESTS RESULT OUT OF RANGE REFERENCE UNITS LAB STSPEC(INC) Specimen Description .FECES LAB CAMPCR(LOINC) Campylobacter sp PCR NEGATIVE: No Campylobacter spp. (jejuni or coli) DNA Detected CAMNEG LAB SALPCR(LOINC) Salmonella sp PCR NEGATIVE: No Salmonella spp. DNA Detected SALNEG LAB STPCR(LOINC) Shigatoxin gene PCR NEGATIVE: No Shiga toxin-producing gene(s) Detected STXNEG LAB SHIPCR(LOINC) Shigella sp PCR NEGATIVE: N o Shigella spp. / EIEC DNA Detected SHINEG LAB PLEPCR(LOINC) Plesiomonas sp PCR NEGATIVE: No Plesionomas shigelloides DNA Detected PLENEG LAB VIBPCR(LOINC) Vibrio sp PCR NEGATIVE: No Vibrio (V. vulnificus, V, parahaemolyticus and V. cholerae) DNA VIBNEG Result Comment: Detected LAB EECPCR(LOINC) E coli enterotox PCR NEGATIVE: No Enterotoxigenic E. coli (ETEC) Heat-labile and heat-stable (LT/ST) EECNEG Result Comment: DNA Detected LAB YERPCR(LOINC) Yersinia gene PCR NEGATIVE: No Yersinia enterocolitica DNA Detected YERNEG Performed By: #### CDIFQ, FL ACT, STLPCR #### [address] [id number] Communications Intern: Tato Ibarra MD FECAL LACTOFERRIN Collected: 12/31/2023 7:58 AM Stat us: F Source: [facility] TYPE CODE TESTS RESULT OUT OF RANGE REFERENCE UNITS LAB FLACT(LOINC) Fecal Lactoferrin POSITIVE for fecal lactoferrin, a marker for fecal leukocytes and an indicator Abnormal NFLACT Result Comment: of intestina l inflammation. Performed By: #### CDIFQ, FL ACT, STLPCR #### [address] [id number] Communications Intern: Tato Ibarra MD PT Collected: 12/31/2023 7:27 AM Status: F Source: [facility] TYPE CODE TESTS RESULT OUT OF RANGE REFERENCE UNITS LAB PTR(LOINC) Prothrombin Time 11.9 11.7-14.9 se c LAB INR(LOINC) INR 0.9 Result Comment: Therapeutic Range: Moderate Anticoagulant Intensity: INR = 2.0-3.0 High Anticoagulant Intensity: INR = 2.5-3.5 Performed By: #### FEBC, PT, PTT #### [address] [phone] Communications Intern: Tato Ibarra MD APTT Collected: 7:27 AM Status: F Source: [facility] TYPE CODE TESTS RESULT OUT OF RANGE REFERENCE UNITS LAB PTTR(LOINC) PTT 27.6 23.0-36.5 sec Result Comment: IV Heparin Therapy Range: 66.0-92.0 sec Performed By: #### FEBC, PT, PTT #### [address] [phone] Communications Intern: Tato Ibarra MD IRON BINDING CAP. Collected: 12/31/2023 7:27 AM Stat us: F Source: [facility] TYPE CODE TESTS RESULT OUT OF RANGE REFERENCE UNITS LAB FE(LOINC) Iron 24 Low 37-145 ug/dL LAB TIBC(LOINC) Total Fe Binding Cap 213 Low 250-450 ug/dL LAB FESAT(LOINC) % Fe Saturation 11 Low 20-55 % LAB UIBC(LOINC) Unbound Fe Bind Cap 189 112-347 ug/dL Performed By: #### FEBC, PT, PTT #### [facility] [address] [place] [address] [phone] Communications Intern: Tato Ibarra MD HGB/HCT Collected: 7:27 AM Status: F Source: [facility] TYPE CODE TESTS RESULT OUT OF RANGE REFERENCE UNITS LAB HGB(LOINC) Hemoglobin 11.2 Low 11.9-15.1 g/dL LAB HCT(LOINC) Hematocrit 33.1 Low 36.3-47.1 % Performed By: #### HH #### [facility] [address] [place] [address] [phone] Communications Intern: Tato Ibarra MD LACTIC ACID Collected: 12:46 AM Status: F Source: [facility] TYPE CODE TESTS RESULT OUT OF RANGE REFERENCE UNITS LAB LACWB(LOINC) Lactic Acid,Whole Bl 1.0 0.7-2.1 mmol/L Performed By: #### OSMO, LD, MG, EJSUS, TSHX, LIVP, B12FOL, LACTIC, FT4, BMP #### [facility] [address] [place] [address] [phone] Communications Intern: Tato Ibarra MD OSMOLALITY Collected: 12:46 AM Status: F Source: [facility] TYPE CODE TESTS RESULT OUT OF RANGE REFERENCE UNITS LAB OSMO(LOINC) Osmolality 278 275-295 mOsm/kg Performed By: #### OSMO, LD, MG, JESUS, TSHX, LIVP, B12FOL, LACTIC, FT4, BMP #### [facility] [address] [place] [address] [phone] Communications Intern: Tato Ibarra MD BASIC METABOLIC PROF Collected: 12:46 AM Status: F Source: [facility] TYPE CODE TESTS RESULT OUT OF RANGE REFERENCE UNITS LAB NA(LOINC) NA (Sodium) 135 Low 136-145 mmol/L LAB K(LOINC) K (Potassium) 3.7 3.7-5.3 mmol/L LAB CL(LOINC) Chloride 105 98-107 mmol/L LAB HCO(LOINC) CO2 20 20-31 mmol/L LAB GAP(LOINC) Anion Gap 10 9-16 mmol/L LAB GLU(LOINC) Glucose 89 74-99 mg/dL LAB BUN(LOINC) BUN (Urea N) 2 Low 6-20 mg/dL LAB CRE(LOINC) Creatinine 0.4 Low 0.50-0.90 mg/dL LAB EGFR(LOINC) eGFR >90 >60 mL/min/1. 73m2 Result Comment: These results are not intended [...] following therapy that affects renal tubular secretion. LAB CA(LOINC) Calcium 8.5 Low 8.6-10.4 mg/dL Performed By: #### OSMO, LD, MG, JESUS, TSHX, LIVP, B12FOL, LACTIC, FT4, BMP #### [facility] [address] [place] [address] [phone] Communications Intern: Tato Ibarra MD LACTATE DEHYDROGENASE Collected: 12/31/2023 12:46 AM Status: F Source: [facility] TYPE CODE TESTS RESULT OUT OF RANGE REFERENCE UNITS LAB LD(LOINC) Lactate Dehydrogenase 168 135-214 U/L Performed By: #### OSMO, LD, MG, JESUS, TSHX, LIVP, B12FOL, LACTIC, FT4, BMP #### [facility] [address] [place] [address] [phone] Communications Intern: Tato Ibarra MD LIVER PROFILE Collected: 4 12:46 AM Status: F Source: [facility] TYPE CODE TESTS RESULT OUT OF RANGE REFERENCE UNITS LAB ALB(LOINC) Albumin 3.0 Low 3.5-5.2 g/dL LAB ALP(LOINC) Alkaline Phos 174 High 35-104 U/L LAB ALT(LOINC) ALT 13 10-35 U/L LAB AST(LOINC) AST 47 High 10-35 U/L LAB TBIL(LOINC) Bilirubin, Total 0.4 0.00-1.20 mg/dL LAB DBILI(LOINC) Bilirubin, Direct 0.2 0.0-0.2 mg/dL LAB IBIL(LOINC) Bilirubin, Indirect 0.2 0.0-1.0 mg/dL LAB TP(LOINC) Protein, Total 5.2 Low 6.6-8.7 g/dL LAB GLOB(LOINC) Globulin Fraction 2.2 g/dL LAB AG(LOINC) Albumin/Glob Ratio 1.0 1.0-2.5 Performed By: #### OSMO, LD, MG, JESUS, TSHX, LIVP, B12FOL, LACTIC, FT4, BMP #### [facility] [address] [place] [address] [phone] Communications Intern: Tato Ibarra MD MAGNESIUM Collected: 4 12:46 AM Status: F Source: [facility] TYPE CODE TESTS RESULT OUT OF RANGE REFERENCE UNITS LAB MG(LOINC) Magnesium 1.9 1.6-2.6 mg/dL Performed By: #### OSMO, LD, MG, JESUS, TSHX, LIVP, B12FOL, LACTIC, FT4, BMP #### [facility] [address] [place] [address] [phone] Communications Intern: Tato Ibarra MD PHOSPHORUS, INORG. Collected: 4 12:46 AM Status: F Source: [facility] TYPE CODE TESTS RESULT OUT OF RANGE REFERENCE UNITS LAB JESUS(LOINC) Phosphorus, Inorg. 3.7 2.5-4.5 mg/dL Performed By: #### OSMO, LD, MG, JESUS, TSHX, LIVP, B12FOL, LACTIC, FT4, BMP #### [facility] [employer] [address] [place] [address] [phone] Communications Intern: Tato Ibarra MD TSH W/REFLEX TO FT4 Collected: 12/31/19 24 12:46 AM Status: F Source: [facility] TYPE CODE TESTS RESULT OUT OF RANGE REFERENCE UNITS LAB TSH(LOINC) Thyroid Stim. Horm. 6.81 High 0.27-4.20 uIU/mL Performed By: #### OSMO, LD, MG, JESUS, TSHX, LIVP, B12FOL, LACTIC, FT4, BMP #### [address] [phone] Communications Intern: Tato Ibarra MD THYROXINE, FREE Collected: 4 12:46 AM Status: F Source: [facility] TYPE CODE TESTS RESULT OUT OF RANGE REFERENCE UNITS LAB FT4(LOINC) Thyroxine, Free 0.8 Low 0.92-1.68 ng/dL Performed By: #### OSMO, LD, MG, JESUS, TSHX, LIVP, B12FOL, LACTIC, FT4, BMP #### [address] [phone] Communications Intern: Tato Ibarra MD B12/FOLATE PANEL Collected: 4 12:46 AM Status: F Source: [facility] TYPE CODE TESTS RESULT OUT OF RANGE REFERENCE UNITS LAB B12(LOINC) Vitamin B12 441 854-7912 pg/mL LAB FOL(LOINC) Folic Acid 5.4 4.8-24.2 ng/mL Performed By: #### OSMO, LD, MG, JESUS, TSHX, LIVP, B12FOL, LACTIC, FT4, BMP #### [address] [phone] Communications Intern: Tato Ibarra MD CALCIUM, IONIC Collected: 4 12:46 AM Status: F Source: [facility] TYPE CODE TESTS RESULT OUT OF RANGE REFERENCE UNITS LAB IOCA(LOINC) Calcium, Ionic 1.23 1.13-1.33 mmol/L Performed By: #### PTT, PT, IOCAL, CDP #### [facility] [address] [place] [address] Communications Intern: Tato Ibarra MD CBC WITH DIFF Collected: 4 12:46 AM Status: F Source: [facility] TYPE CODE TESTS RESULT OUT OF RANGE REFERENCE UNITS LAB WBC(LOINC) WBC Count 5.2 3.5-11.3 k/uL LAB RBC(LOINC) RBC Count 3.20 Low 3.95-5.11 m/uL LAB HGB(LOINC) Hemoglobin 10.9 Low 11.9-15.1 g/dL LAB HCT(LOINC) Hematocrit 33.2 Low 36.3-47.1 % LAB MCV(LOINC) MCV 103.8 High 82.6-102.9 fL LAB MCH(LOINC) MCH 34.1 High 25.2-33.5 pg LAB MCHC(LOINC) MCHC 32.8 28.4-34.8 g/dL LAB RDW(LOINC) RDW 18.8 High 11.8-14.4 % LAB PLT(LOINC) Platelet Count 197 138-453 k/uL LAB MPVX(LOINC) MPV 9.2 8.1-13.5 fL LAB NRBCS(LOINC) NRBC Automated 0.0 0.0 per 100 WBC LAB SEG(LOINC) Neutrophil (Seg) 60 36-65 % LAB LYM(LOINC) Lymphocyte 27 24-43 % LAB MON(LOINC) Monocyte 9 3-12 % LAB EO(LOINC) Eosinophil 2 1-4 % LAB BASO(LOINC) Basophil 1 0-2 % LAB IGRAN(LOINC) Immature Granulocyte 1 High 0 % LAB ASEG(LOINC) Abs.Neutrophil (Seg) 3.14 1.50-8.10 k/uL LAB ALYM(LOINC) Abs. Lymph 1.41 1.10-3.70 k/uL LAB AMONO(LOINC) Abs. Monocyte 0.44 0.10-1.20 k/u L LAB AEO(LOINC) Abs. Eosinophil 0.12 0.00-0.44 k/uL LAB ABASO(LOINC) Abs. Basophil 0.03 0.00-0.20 k/u L LAB AIGRAN(LOINC) Abs.Imm.Granul ocyte 0.03 0.00-0.30 k/uL LAB RCOM(LOINC) RBC Morphology ANISOCYTOSIS PRESENT Result Comment: MACROCYTOSIS PRESENT Performed By: #### PTT, PT, IOCAL, CDP #### [facility] [address] [place] [address] [phone] Communications Intern: Tato Ibarra MD PT Collected: 12/31/2023 12:46 AM Status: F Source: [facility] TYPE CODE TESTS RESULT OUT OF RANGE REFERENCE UNITS LAB PTR(LOINC) Prothrombin Time 11.8 11.7-14.9 se c LAB INR(LOINC) INR 0.9 Result Comment: Therapeutic Range: Moderate Anticoagulant Intensity: INR = 2.0-3.0 High Anticoagulant Intensity: INR = 2.5-3.5 Performed By: #### PTT, PT, IOCAL, CDP #### [facility] [address] [place] [address] [phone] Communications Intern: Tato Ibarra MD APTT Collected: 12:46 AM Status: F Source: [facility] TYPE CODE TESTS RESULT OUT OF RANGE REFERENCE UNITS LAB PTTR(LOINC) PTT 27.8 23.0-36.5 sec Result Comment: IV Heparin Therapy Range: 66.0-92.0 sec Performed By: #### PTT, PT, IOCAL, CDP #### [facility] [address] [place] [address] [phone] Communications Intern: Tato Ibarra MD TYPE + SCREEN Observed: 12/31/2023 12:46 AM Status: F Source: [facility] Sample Expiration 01/03/2024 ,2359 Arm Band Number BE [id number] ABO/Rh(D) O NEGATIVE Antibody Screen NEGATIVE Unit Number [id number] Blood Component Type Leukocyte Reduced Red Cell Unit Division 00 Status of Unit TRANSFUSED Transfusion Status OK TO TRANSFUSE Crossmatch Result COMPATIBLEUnit Number [id number] Blood Component Type Leukocyte Reduced Red Cell Unit Division 00 Status of Unit TRANSFUSED Transfusion Status OK TO TRANSFUSE Crossmatch Result COMPATIBLE Performed By: #### TYS #### [facility] [address] [place] [address] [phone] Communications Intern: Tato Ibarra MD UA W/REFLEX CULTURE Collected: 12/31/19 24 12:32 AM Status: F Source: [facility] TYPE CODE TESTS RESULT OUT OF RANGE REFERENCE UNITS LAB UCO(LOINC) Color Yellow YEL LAB UTU(LOINC) Clarity, Urine Clear CLEAR LAB UGL(LOINC) Glucose,Semi- qnt,Ur NEGATIVE NEG mg/dL LAB UBI(LOINC) Bilirubin, SemiQt,Ur NEGATIVE NEG LAB UKE(LOINC) Ketones, Urine NEGATIVE NEG mg/dL LAB USG(LOINC) Spec. Hull,Ur 1.007 1.005-1.030 LAB UHB(LOINC) Blood, Urine NEGATIVE NEG LAB UPH(LOINC) PH,Ur 5.5 5.0-8.0 LAB UPR(LOINC) Protein, Semi-qnt,Ur NEGATIVE NEG mg/dL LAB UUR(LOINC) Urobilinogen, Ur Normal 0.0-1.0 EU/dL LAB UNI(LOINC) Nitrite,Ur NEGATIVE NEG LAB ULE(LOINC) Leukocyte Esterase NEGATIVE NEG LAB UCOMM(LOINC) Comment Microscopic exam not performed based on chemical results unless requested in Result Comment: original ord er. Performed By: #### UAX, URNA , URCRE #### [facility] [address] [place] [address] [phone] Communications Intern: Tato Ibarra MD CREATININE,RANDOM UR Collected: 024 12:32 AM Status: F Source: [facility] TYPE CODE TESTS RESULT OUT OF RANGE REFERENCE UNITS LAB CREUR(LOINC) Creatinine Conc. 27.0 Low 28.0-217.0 mg/dL Performed By: #### UAX, URNA , URCRE #### [facility] [address] [place] [address] [phone] Communications Intern: Tato Ibarra MD SODIUM, RANDOM UR Collected: 4 12:32 AM Status: F Source: [facility] TYPE CODE TESTS RESULT OUT OF RANGE REFERENCE UNITS LAB NAUR(LOINC) Na Conc. Urine 121 mmol/L Result Comment: No normal ra nge established. Performed By: #### UAX, URNA , URCRE #### [facility] [address] [place] [address] [phone] Communications Intern: Tato Ibarra MD HGB/HCT Collected: 4 11:30 PM Status: F Source: [facility] TYPE CODE TESTS RESULT OUT OF RANGE REFERENCE UNITS LAB HGB(LOINC) Hemoglobin 11.1 Low 11.9-15.1 g/dL LAB HCT(LOINC) Hematocrit 34.0 Low 36.3-47.1 % Performed By: #### HH #### [facility] [address] [place] [address] [phone] Communications Intern: Tato Ibarra MD HGB/HCT Collected: 4 7:00 PM Status: F Source: [facility] TYPE CODE TESTS RESULT OUT OF RANGE REFERENCE UNITS LAB HGB(LOINC) Hemoglobin 11.0 Low 11.9-15.1 g/dL LAB HCT(LOINC) Hematocrit 34.2 Low 36.3-47.1 % Performed By: #### HH #### [facility] [employer] [address] [place] [address] [phone] Communications Intern: Tato Ibarra MD ALLERGIES DATE TYPE / CODE NAME / CODE REACTION SEVERITY SOURCE 04/29/2024 Drug Allergy/960382 002(SNOMED CT) Sulfa (Sulfonamide Antibiotics)/S8494472 91(RXNORM) Hives Unknown [facility] 04/29/2024 Drug Allergy/550812 002(SNOMED CT) codeine/P346721405(RX NORM) Hives Unknown [facility] 04/29/2024 Drug Allergy/550141 002(SNOMED CT) acetaminophen/W517775 605(RXNORM) Hives Unknown [facility] 04/29/2024 Drug Allergy/568141 002(SNOMED CT) venlafaxine/N23476898 8(RXNORM) Hives Unknown [facility] 12/10/2022 DRUG INGREDI~Food/4 60569565(SNOME D CT) MILK GI [facility] 12/10/2022 DRUG INGREDI/811218 003(SNOMED CT) CODEINE Other [facility] 2020 Drug Class/54638886 3(SNOMED CT) VENLAFAXINE ANALOGUES Unknown [facility] 09/06/2015 Drug Class/46263938 3(SNOMED CT) NSAIDS (NON-STEROIDAL ANTI-INFLAMMATORY DRUG) Other [facility] Amb[facility] DR/483665190(S NOMED CT) codeine 526410200 [facility] ical Center /992724812(S NOMED CT) sulfa drugs 574739159 [facility] ical Center /181310324(S NOMED CT) Effexor 469280103 [facility] ical Center /324790021(S NOMED CT) NSAIDs 539751934 [facility] ical Center ENCOUNTERS ADMIT/DISCHARGE ACCOUNT NUMBER ADMITTING ENCOUNTER CLASS LOCATION SOURCE 06/08/2024/06/11/19 [id number] TRISTA MORRISON Inpatient Encounter BuildinKR oom: 0018Bed: A [facility] 05/07/2024/05/07/20 24 [id number] Ambulatory Building:[address] Ambulatory 04/29/2024/04/29/20 24 [id number] [facility] 04/29/2024/04/29/20 24 [id number] [facility] 04/07/2024/04/07/20 24 [id number] Ambulatory Building:[address] 01/12/2024/01/12/20 24 [id number] Ambulatory PM [facility] ding[facility] 01/06/2024/01/11/20 24 [id number] TARUN BARRETT Inpatient Encounter Building:3 Room: 0333Bed: 05 [facility] 12/30/2023/01/05/20 24 [id number] NIA MORATAYA Inpatient Encounter Building:CAR 2Room: 6Bed: 01 [facility] 12/29/2023/12/29/19 24 [id number] Ambulatory CD:[id number] 7Building:CD :[id number] [facility] PAYERS ENCOUNTER GUARANTOR PAYER SUBSCRIBER SOURCE 06/08/2024 CANDY LAUGHLINOB: [place] [address]Qia: (HP) (WP) Primary Insurance[facility]OUISPolicy Number: [id number] Date:2024-05-26 JORGE LAUGHLINOB: [id number] [place], [place] [address]Jko: (HP) [facility] 06/08/2024 Secondary Insurance:MEDICAREPolic y Number: [id number] Date:2423-81-95[place]IN [place] [address]DN: CANDY LAUGHLINOB: [id number] [place] [address]Jyl: (HP) [facility] 05/07/2024 CANDY LAUGHLINOB: [address] [place], [place] [address]Crv: (HP) Primary Insurance:[facility]ITALPolicy Number: [id number] Date:2023-05-26 CANDY LAUGHLINOB: [id number] [address] [place] [address]Lvf: (HP) [facility] 05/07/2024 Secondary Insurance:MEDICAREPolic y Number: [id number] Date:2022-10-24 CANDY LAUGHLINOB: [id number] [address] [place], [place] [address]Ypv: () [facility] 04/29/2024 [place] [address]Tsn: () Primary Insurance:MedicarePolic y Number: [id number] Date:2024-04-29 Candy LaughlinOB: [id number] [place] [address]Gjy: () [facility] 04/29/2024 Secondary Insurance:United HealthcarePolicy Number: [id number] Date:2024-04-29 Jorge LaughlinOB: [id number] [place] [address]Vjq: () [facility] 04/29/2024 Tertiary Insuran ce:Self PayPolicy Number: Effective Date:2024-04-29 [facility] 04/29/2024 [place] [address]Sxu: () Primary Insurance:MedicarePolic y Number: [id number] Date:2024-04-29 Candy LaughlinOB: [id number] [place] [address]Glk: () [facility] 04/29/2024 Secondary Insurance:United HealthcarePolicy Number: [id number] Date:2024-04-29 Jorge LaughlinOB: [id number] [place] [address]Bia: () [facility] 04/29/2024 Tertiary Insuran ce:Self PayPolicy Number: Effective Date:2024-04-29 [facility] 04/07/2024 CANDY LAUGHLINOB: [place] [address]Fwn: () Primary Insurance:[facility]ITALPoly Number: [id number] Date:2023-05-26 CANDY Acuña HELIOONDOB: [id number] [place] [address]Lmn: () [facility] 04/07/2024 Secondary Insurance:MEDICAREPolic y Number: [id number] Date:2022-10-24 CANDY Acuña HELIOONDOB: [id number] [place], [place] [address]Zqe: () [facility] 01/12/2024 Candy Acuña HelioonDOB: [place] [address] Primary Insurance:MedicarePolic y Number: Effective Date:8868-12-15Qhyn Name:MEDPO [address], [place] [address]HJ: Candy CadetonDOB: [id number] [place] [address] [facility] 01/12/2024 Secondary Insurance:[facility] HospitalPoly Number: Effective Date:5094-95-15Wich Name:COMP [address] [address], [place] [address]SG: Candy CadetonDOB: [id number] [place] [address] [facility] 01/06/2024 CANDY LAUGHLINOB: [place], [place] [address]Wyd: () () Primary Insurance:MEDICAREPolic y Number: [id number] Date:6478-97-58[address] [address]VBJHKJS[place], [place] [address]OQ: CANDY CADETONDOB: [id number] [place], [place] [address]Qel: (HP) [facility] 01/06/2024 Secondary Insurance:[facility] CAMPUSPolicy Number: [id number] Date:2023-05-26[address] [place] [address]HN: CANDY LAUGHLINOB: [id number] [place], [place] [address]Bub: (HP) [facility] 12/30/2023 CANDY LAUGHLINOB: [place] [address]Dgx: (HP) (WP) Primary Insurance:MEDICAREPolic y Number: [id number] Date:1749-43-31[address] [address]QL[place], [place] [address]ZR: CANDY LAUGHLINOB: [id number] [address] [facility] [address]Xcx: (HP) [facility] 12/30/2023 Secondary Insurance:[facility] CAMPUSPolicy Number: [id number] Date:2023-05-26[address] [place] [address]RQ: CANDY LAUGHLINOB: [id number] [place], [place] [address]Hhg: (HP) [facility] 12/29/2023 CANDY LAUGHLINOB: W [place] LNTel: ~~( 41 (HP) Primary Insurance:MEDICAREPolic y Number: [id number] Date:3748-24-12[address] [address]VPRNYJKRF, [place] [address]DC: CANDY JACOBSEN [facility] 12/29/2023 Secondary Insurance:[facility] CAREPolicy Number: [id number] Date:6955-10-24[address] [address], [place] [address]HS: JORGE JACOBSEN [facility]
--- OUTSIDE RECORDS SUMMARY | 2024-07-30 07:30 | XMS_ITS ---
Author Organization [facility] Address [address] [place] [address] Care Team Providers Care Saw Setter Name Role Phone Kymberly Gilmore M.D. Primary Care Provider Unavail able Jewel, Shalalorri Unavailable [phone] Cat BURKETT, Andri Unavailable Unavailab le REASON FOR VISIT L4-5 REVISION DECOMPRESSION WITH FUSION, [facility], 06/08/24 Medications Medication SIG (Take, Route, Fr equency, Duration) Notes Start Date End Date Status Flexeril 10 mg 1 tab(s) orally 3 ti mes a day prn muscle spasms 04/19/2024 Active None Active ALPRAZolam Active pregabalin Active sertraline Active amitriptyline Active oxyCODONE Active Vitamin D3 Active eletriptan Active ondansetron Active Encounters Encounter Location Date Provider Diagnosis [facility] Office [address] [place] [address] [place] [address] 07/30/2024 Shalalorri Jewel Aftercare following surgery of the musculoskeletal system Z47.89 Assessments Encounter Date Diagnosis (ICD Code) Assessment Notes Treatment Notes Treatment Clinical Notes Section Notes 07/30/2024 Aftercare following surgery of the musculoskeletal system (ICD-10 - Z47.89) Plan Of Treatment Pending Test Test Name Order Date Lumbar spine 2v ap and lat - [id number] 07/30 Progress Notes * RASHID BOOTHDOB:[birth year] (54 yo F)Acc No.[id number]:07/30/2024 Progress Notes Patient: RASHID LOUIS Provider: Tom Guardado MD, PhD :1970 A ge:53 Y S ex:Female Date:07/30/2024 Address:[address] , [id number] Pcp:Kymberly Gilmore M.D. Subjective: * Chief Complaints: * 1 . L4-5 REVISION DECOMPRESSION WITH FUSION, [facility], 06/08/24. * Medical History: * Surgical History: L 4-5 laminectomy, PSF 06/08/2024. * Medications: T aking sertraline , Taking pregabalin , Taking oxyCODONE , Taking ondansetron , Taking eletriptan , Taking Vitamin D3 , Taking amitriptyline , Taking ALPRAZolam , Taking None , Taking Flexeril 10 mg tablet 1 tab(s) orally 3 times a day prn muscle spasms Objective: * Vitals: Assessment: * Assessment: 1. A ftercare following surgery of the musculoskeletal system - Z47.89 (Primary) ? Plan: * Treatment: Forms: * Images: * Electronic signature of Camryn Holloway MD, PHD on 11/30/2024 at 06:03 PM EDT Sign off status: Pending * Provider: Tom Guardado MD, PhD Date: 07/30/2024 Generated for Jay baron/Devorah/Loboitting on: 0 11/30/2024 06:03 PM EDT
[2024-11-30] VITALS (36 sets, daily range): BP systolic 99–120; BP diastolic 72–84; PULSE 115–122; TEMP 36.8; O2SAT 85–100; BMI 33.5
--- NOTE | 2024-11-30 17:57 | ECG_ITS ---
[facility] Test Date: 2024-11-30 Pat Name: RASHID BOOTH Department: Room: - Gender: Female Curriculum Assistant: : 1970 Requested By: [id number] Order Number: [id number] Reading MD: CHRISTIAN MISTRY Measurements Intervals [place] Rate: 119 P: 33 IN: 166 QRS: 47 QRSD: 92 T: -30 QT: 354 QTc: 425 Interpretive Statements 1120 Sinus tachycardia [address] depression [address] & Twave abnormality 9140 abnormal rhythm ECG Compared to ECG 04/06/2024 15:16:43 ST (T wave) deviation now present T-wave abnormality no longer present Electronically Signed On 12-02-2024 9:44:45 EDT by CHRISTIAN MISTRY
--- OUTSIDE RECORDS SUMMARY | 2024-11-30 18:03 | XMS_ITS | Clinical Summary ---
Author Organization [facility] Address [address] [place] [address] Care Team Providers Care Arc Welding Machine Operator Name Role Phone Kymberly Gilmore MD Primary Care Provider [phone] Allergies Active Allergy Reactions Criticality Noted Date Comments Acetaminophen-Codeine Intolerance 09/06/2015 Sleep apnea Venlafaxine Analogues Unknown 2020 Nsaids (Non-Steroidal Anti-Inflammatory Drug) Other: See Comments 09/06/2015 Has not taken due to gastric bypass surgery in the past Sulfamethazine Unknown 2020 Ophthalmic agents Medications Pregabalin (LYRICA) 200 mg capsule Take 200 mg by mouth three times daily. Active oxyCODONE-aceta minophen (PERCOCET) 5-325 mg tablet Take 1 tablet by mouth every 4 hours as needed for Pain. Active eletriptan (RELPAX) 40 mg tablet Take 40 mg by mouth as needed (migraine). may repeat in 2 hours if necessary Active acetaminophen (TYLENOL EXTRA STRENGTH) 500 mg tablet Take 1,000 mg by mouth every 4 hours as needed. Active dexlansoprazole (DEXILANT ORAL) Take by mouth once daily. Active ALPRAZolam (XANAX) 0.5 mg tablet Take 0.5 mg by mouth four times daily as needed. Active sertraline (ZOLOFT) 100 mg tablet Take 200 mg by mouth once daily. Active carvedilol (COREG) 3.125 mg tablet Take 3.125 mg by mouth. Active oxyCODONE IR (ROXICODONE) 20 mg tab Take 1 tablet by mouth. 9 Active cholecalciferol , Vitamin D3, (VITAMIN D3) 1,250 mcg (50,000 unit) cap capsule Take 1 capsule by mouth two times a week. 0 Active amitriptyline (ELAVIL) 75 mg tablet Take 75 mg by mouth daily at bedtime. 1 Active carisoprodol (SOMA) 350 mg tablet Take 350 mg by mouth four times daily. 1 Active amphetamine-dex troamphetamine 15 mg tablet Take 1 tablet by mouth once daily. 1 Active Active Problems Problem Noted Date Diagnosed Date Megaloblastic anemia due to vitamin B12 deficien cy 10/11/2020 Iron deficiency anemia due to chronic blood loss 10/11/2020 History of Linsey-en-Y gastric bypass 10/11/2020 Gastric outflow obstruction 09/06/2015 Immunizations Immunization Administration Dates Next Due COVID-19 original vaccine, a ge 12+ yr, monovalent (Moxsie - PURPLE TOP) 08/22/2020,08/02/2020 hepatitis B (HepB) vaccine, 3-dose series, age 20+ yr (ENGERIX-B, RECOMBIVAX HB) 03/29/2005,10/12/1997,06/10/1997,1996 measles mumps rubella (MMR) vaccine (M-M-R II, PRIORIX) 05/16/1997 tetanus diphtheria (Td) vacc ine, adult, unspecified formulation 05/16/1997 Family History Medical History Relation Comments Lung Cancer Father Emphysema Mother Renal Cell Cancer Mother Relation Status Comments Father Mother Alive Social History Tobacco Use Types Packs/Day Years Used Date Smoking Tobacco: Every Day Cigarettes Smokeless Tobacco: Never Alcohol Use Standard Drinks/Week Comments Not Currently 0 (1 standard drink = 0.6 oz pur e alcohol) PHQ-2 Answer Date Recorded PHQ-2 score 6 06/07/2019 Area Deprivation Index Answer Date Madhu rded National Score (1-100), lower number is lower ri sk Not on file 05/03/2020 State Score (1-10), lower number is lower risk N ot on file 05/03/2020 Data from: https://www.neighborhoodatlas.medicine.[facility].edu/. Last address used for calculation Not on file 05/03/2020 Comments No Sex and Gender Information Value Date Recorded Sex Assigned at Not on file Legal Sex Female 5:53 AM EDT Gender Identity Not on file Sexual Orientation Not on file Last Filed Vital Signs Vital Sign Reading Time Taken Comments Blood Pressure 118/79 11/08/2020 1:25 PM EDT Pulse 94 11/08/2020 1:25 PM EDT Temperature 36.2 C (97.2 F) 11/08/2020 1:25 PM EDT Respiratory Rate 16 11/08/2020 1:25 PM EDT Oxygen Saturation 97% 11/08/2020 1:25 PM EDT Inhaled Oxygen Concentration - - Weight 92.4 kg (203 lb 12.8 oz) 11/08/2020 1:25 PM EDT Height 170.2 cm (5' 7.01 ) 11/08/2020 1:25 PM ED T Body Mass Index 31.91 11/08/2020 1:25 PM EDT Plan of Treatment Health Maintenance Due Date Last Done Comments Anxiety Screening 1986 Depression Screening 1986 HIV Screening 1986 Hepatitis C Screening 1986 Cervical Cancer Screening 1989 DTaP,Tdap,Td Vaccine (1 - Tdap) 05/17/[address] Colonography 2013 Cologuard (FIT-DNA) 2013 Colonoscopy 2013 Colorectal Cancer Screening 2013 Fecal Occult Blood 2013 Sigmoidoscopy 2013 Mammogram Screening 10/01/2015 09/30/2014 Pneumococcal Vaccine: 50+ (1 of 1 - PCV) 2018 Shingrix Vaccine (1 of 2) 2018 Diabetes Screening 11/09/2023 11/08/2020, 0 10/11/2020, 02/06/2018, Additional history exists Covid-19 Vaccine (3 - 2023-2 5 season) 2024 08/22/2020, 08/02/2020 Lipid Screening 02/04/2024 02/03/2019 Influenza Vaccine (#1) 2025 Hepatitis B Vaccine Completed 03/29/2005, 10/12/1997, 06/10/1997, Additional history exists Procedures Procedure Name Priority Date/Time Associated Diagnosis Comments COMPREHENSIVE METABOLIC PANEL Routine 11/08/2020 1:52 PM EDT Megaloblastic anemia due to vitamin B12 deficiency Iron deficiency anemia due to chronic blood loss History of Linsey-en-Y gastric bypass Other vitamin B12 deficiency anemia from Last 3 Months or Most Recently Relevant to Health Maintenance Results * (ABNORMAL) COMP METABOLIC PANEL (11/08/2020 1:52 PM EDT) Pathologist [facility] Protein, Total 6.9 6.3 - 8.0 g/dL 11/08/2020 2:33 PM EDT [facility] Albumin 4.4 3.9 - 4.9 g/dL 11/08/2020 2:33 PM EDT [facility] Calcium 9.7 8.5 - 10.2 mg/dL 11/08/2020 2:33 PM EDT [facility] Bilirubin, Total <0.2(L) 0.2 - 1.3 mg/dL 11/08/2020 2:33 PM EDT [facility] Alkaline Phosphatase 111 34 - 123 U/L 11/08/2020 2:33 PM EDT [facility] AST 17 13 - 35 U/L 11/08/2020 2:33 PM EDT [facility] Glucose 104(H) 74 - 99 mg/dL 11/08/2020 2:33 PM EDT [facility] Comment: The [place] Diabetes Association (ADA) provides guidance for cutoff [...] Standards of Medical Care in Diabetes 2016, [place] [employer]. Diabetes Care. 2016.39(Suppl 1). BUN 9 7 - 21 mg/dL 11/08/2020 2:33 PM EDT [facility] Creatinine 0.63 0.58 - 0.96 mg/dL 11/08/2020 2:33 PM EDT [facility] Sodium 133(L) 136 - 144 mmol/L 11/08/2020 2:33 PM EDT [facility] Potassium 4.4 3.7 - 5.1 mmol/L 11/08/2020 2:33 PM EDT [facility] Chloride 100 97 - 105 mmol/L 11/08/2020 2:33 PM EDT [facility] CO2 26 22 - 30 mmol/L 11/08/2020 2:33 PM EDT [facility] Anion Gap 7(L) 9 - 18 mmol/L 11/08/2020 2:33 PM EDT [facility] ALT 7 7 - 38 U/L 11/08/2020 2:33 PM EDT [facility] eGFR- >60 11/08/2020 2:33 PM EDT [facility] eGFR-All Other Races >60 . 11/08/2020 2:33 PM EDT [facility] Comment: eGFR (Estimated GFR) Units of measure: [...] eGFR may not accurately reflect actual GFR. Blood 11/08/2020 1:52 PM EDT 11/08/2020 1:54 PM EDT us Ariana Baum FARM CONSULTANT.NURSE DISCHARGE LABORATORY Final Re sult [address] from Last 3 Months or Most Recently Relevant to Health Maintenance Insurance [facility] PPO TPA Care Teams Arc Welding Machine Operator Relationship Specialty Start Date End Date Kymberly Gilmore MD [address] [place] [id number] PCP - General Family Medicine 10/11/20
--- OUTSIDE RECORDS SUMMARY | 2024-11-30 18:03 | XMS_ITS | Clinical Summary ---
Author Organization [facility] Address [address] [place] [address] Care Team Providers Care Community Health Specialist Name Role Phone Unavailable Primary Care Provider Unavailabl e Social History Tobacco Use Types Packs/Day Years Used Date Smoking Tobacco: Never Assessed [place] Safety & Environment Answer Date Rec orded Fear of Current or Ex-Partner Not on file Emotionally Abused Not on file 07/17/2023 Physically Abused Not on file 07/17/2023 Sexually Abused Not on file 07/17/2023 Physically or Sexually Abused Not on file Comments Unknown Sex and Gender Information Value Date Recorded Sex Assigned at Not on file Legal Sex Female 11:47 PM EDT Gender Identity Not on file Sexual Orientation Not on file Last Filed Vital Signs Vital Sign Reading Time Taken Comments Blood Pressure 126/97 01/18/2021 2:37 PM EDT Pulse 92 01/18/2021 2:38 PM EDT Temperature 36.2 C (97.1 F) 01/18/2021 2:38 PM EDT Respiratory Rate - - Oxygen Saturation 97% 01/18/2021 2:38 PM EDT Inhaled Oxygen Concentration - - Weight 96.2 kg (212 lb) 01/18/2021 2:34 PM EDT Height 170.2 cm (5' 7 ) 01/18/2021 2:34 PM EDT Body Mass Index 33.2 01/18/2021 2:34 PM EDT Plan of Treatment Health Maintenance Due Date Last Done Comments CT Colonography 1968 Colonoscopy 1968 Colorectal Cancer Screening 1968 FIT-DNA 1968 FIT 1968 FOBT 1968 Sigmoidoscopy 1968 Depression Screening 1980 Pneumococcal Vaccine: Pediatrics (0 to 5 Years) and At-Risk Patients (6 to 64 Years) (1 of 2 - PCV) 10/06/1987 Pap Smear 1989 Cervical Cancer Screening 1998 HPV/Cotest 1998 Adult Tetanus 05/16/2007 05/16/1997 Mammogram 2008 Zoster Vaccines (1 of 2) 2018 COVID-19 Vaccine ( season) 2024 Influenza Vaccine (#1) 2025 05/13/2021 Hepatitis B Vaccines Completed 03/29/2005, 10/12/1997, 06/10/1997, Additional history exists HIB Vaccines Aged Out No longer eligi ble based on patient's age to complete this topic HPV Vaccines Aged Out No longer eligi ble based on patient's age to complete this topic IPV Vaccines Aged Out No longer eligi ble based on patient's age to complete this topic Meningococcal B Vaccine Aged Out No l onger eligible based on patient's age to complete this topic Meningococcal Vaccine Aged Out No doris mike eligible based on patient's age to complete this topic Rotavirus Vaccines Aged Out No longer eligible based on patient's age to complete this topic Insurance [facility]
--- OUTSIDE RECORDS SUMMARY | 2024-11-30 18:03 | XMS_ITS | Encounter Summary ---
Author Organization [facility] Address [address] [place] [address] Care Team Providers Care Marble Machine Tender Name Role Phone Kymberly Gilmore MD Primary Care Provider [phone] Encounter Details Date Type Department Care Team (Late st Contact Info) Description 12/29/2023 Direct Admit Orders [facility] [address] [place] [address] [phone] Betty Richards MD [address] [place] [address] [phone] Social History Tobacco Use Types Packs/Day Years Used Date Smoking Tobacco: Every Day Cigarettes 1 10.5 Started: 2014 Smokeless Tobacco: Never Comments:started at age 13 f or 4 yrs, quit then started back in 2014 Alcohol Use Standard Drinks/Week Comments No 0 (1 standard drink = 0.6 oz pur e alcohol) [facility] Utilities Answer Date Recorded In the past 12 months has e electric, gas, oil, or water [employer] threatened to shut off services in your home? No 12/30/2023 Hunger Vital Sign Answer Date Recorded Within the past 12 months, y ou worried that your food would run out before you got the money to buy more. Never true 12/30/19 24 Within the past 12 months, t he food you bought just didn't last and you didn't have money to get more. Never true 12/30/2023 PRAPARE - Transportation Answer Date Re corded In the past 12 months, has l ack of transportation kept you from medical appointments or from getting medications? No 10/2023 In the past 12 months, has l ack of transportation kept you from meetings, work, or from getting things needed for daily living? No 12/30/2023 Housing Stability Vital Sign Answer Jose e Recorded In the last 12 months, was t here a time when you were not able to pay the mortgage or rent on time? No 12/30/2023 In the last 12 months, how many places have you lived? 1 12/30/2023 In the last 12 months, was t here a time when you did not have a steady place to sleep or slept in a halfway (including now)? No 12/30/2023 Food Insecurity Answer Date Recorded Within the past 12 months, y ou worried that your food would run out before you got the money to buy more. 1 12/30/2023 Within the past 12 months, t he food you bought just didn't last and you didn't have money to get more. 1 12/30/2023 Interpersonal Safety Domain Source: IP Abuse Scr eening Answer Date Recorded Physical abuse Denies 12/30/2023 Verbal abuse Denies 12/30/2023 Emotional abuse Denies 12/30/2023 Financial abuse Denies 12/30/2023 Sexual abuse Denies 12/30/2023 Comments No Sex and Gender Information Value Date Recorded Sex Assigned at Not on file Legal Sex Female 1:59 PM EST Gender Identity Not on file Sexual Orientation Not on file documented as of this encounter Plan of Treatment Not on file documented as of this encounter Visit Diagnoses Not on filedocumented in this encounter Additional Health Concerns Infection Onset Date Last Indicated Resolved Time C-diff Rule Out 12/31/2023 12/31/2023 12/31/2023 1 1:19 AM EDT documented as of this encounter Care Teams Marble Machine Tender Relationship Specialty Start Date End Date Kymberly Gilmore MD PCP - General Family Medicine 10/18/17 documented as of this encounter
--- OUTSIDE RECORDS SUMMARY | 2024-11-30 18:03 | XMS_ITS | Clinical Summary ---
Author Organization [facility] Address [address] [place] [place] [address] Care Team Providers Care Welder Assistant Name Role Phone Kymberly Gilmore MD Primary Care Provider [phone] Allergies Active Allergy Reactions Criticality Noted Date Comments Acetaminophen-Codein e Other (See Comments) Low 09/06/2015 Sleep apnea Milk (Cow) Other (See Comments) Had gastric bypass in the past, GI bleed history Nsaids Other (See Comments) High 09/06/2015 Other reaction(s): Other: See Comments Has not taken due to gastric bypass surgery in the past GI bleed Medications pregabalin (LYRICA) 100 MG capsule Take 2 capsules by mouth three times daily. Active oxyCODONE (OXY-IR) 15 MG immediate release tablet Take 2 tablets by mouth every 4 hours as needed for Pain. Active ALPRAZolam (XANAX) 0.5 MG tablet Take 1 tablet by mouth every 4 hours as needed for Anxiety. Active sertraline (ZOLOFT) 100 MG tablet Take 2 tablets by mouth at bedtime Active Cholecalciferol (VITAMIN D3) 76205 units CAPS Take by mouth Twice a Week Active ferrous sulfate 325 (65 Fe) MG EC tablet Take 1 tablet by mouth 2 times daily (with meals) 90 tablet 1 8 Active Additional Information Patient not taking.Reported on 06/08/2024 eletriptan (RELPAX) 40 MG tablet Take 1 tablet by mouth once as needed may repeat in 2 hours if necessary Active carvedilol (COREG) 6.25 MG tablet Take 1 tablet by mouth 2 times daily (with meals) 60 tablet 3 4 Active Additional Information Patient not taking.Reported on 06/08/2024 amLODIPine (NORVASC) 5 MG tablet Take 1 tablet by mouth daily 30 tablet 3 4 Active sucralfate (CARAFATE) 1 GM tablet Take 1 tablet by mouth every 8 hours 120 tablet 3 4 Active Additional Information Patient not taking.Reported on 06/08/2024 amitriptyline (ELAVIL) 75 MG tablet Take 1 tablet by mouth nightly Active Active Problems Patient Care Coordination No te Formatting of this note migh t be different from the original. [facility] Problem Noted Date Diagnosed Date Hypokalemia 06/11/2024 Lumbar stenosis with neurogenic claudication Atypical chest pain 01/09/2024 Demand ischemia 01/09/2024 Anastomotic ulcer 01/08/2024 Atrial fibrillation 01/08/2024 Chronic gastric ulcer with hemorrhage 01/08/2024 Upper GI bleed 01/06/2024 Moderate aortic regurgitation 01/01/2024 History of Linsey-en-Y gastric bypass 01/01/2024 Acute gastrojejunal anastomotic ulcer 01/01/2024 Chronic prescription opiate use 01/01/2024 Other specified anxiety disorders 01/01/2024 Primary hypertension 01/01/2024 Cholelithiasis 01/01/2024 Gastrojejunal ulcer with hemorrhage 01/01/2024 Syncope 12/31/2023 HNP (herniated nucleus pulposus), lumbar 018 Overview (02/06/2018): Lumbar 4-5 left side Acute blood loss anemia 10/19/2017 Gastrointestinal hemorrhage associated with gastrojejunal ulcer 10/19/2017 Iron deficiency 10/19/2017 Troponin level elevated 10/19/2017 Hypocalcemia 10/19/2017 Acute hypokalemia 10/19/2017 Hypoalbuminemia due to protein-calorie malnutrit ion 10/19/2017 Hypovolemic shock 10/18/2017 Acute upper GI bleed 10/18/2017 Lactic acidosis 10/18/2017 Hyponatremia 10/18/2017 Orthostatic hypotension 10/18/2017 Hypotension due to blood loss 10/18/2017 Peptic ulcer disease 09/23/2017 AAA (abdominal aortic aneurysm) Complex regional pain syndrome MVP (mitral valve prolapse) Gastric ulcer without hemorrhage or perforation Family History Medical History Relation Name Comments No Known Problems Brother x 1 Other Daughter x 1 mitral valve pr olapse, low albumin Arthritis Father Cancer Father lung Coronary Art Dis Father Heart Disease Father Cancer Mother renal, right ki dney removed Other Mother thyroidectomy, neck fusion Arthritis Sister x 3 cervical fusion Other Sister x 3 thryoidectomy, Relation Name Status Comments Brother x 1 Alive Daughter x 1 Alive Father (Age 55) Mother Alive Sister x 3 Alive Son x 1 Alive Social History Tobacco Use Types Packs/Day Years Used Date Smoking Tobacco: Former Cigarettes 1 10.5 S tarted: 2014 Smokeless Tobacco: Never Tobacco Cessation:Counseling Given: Not Answered Comments:started at age 13 for 4 yrs, quit then started back in 2014 Alcohol Use Standard Drinks/Week Comments Yes 0 (1 standard drink = 0.6 oz pur e alcohol) socially [facility] Utilities Answer Date Recorded In the past 12 months has th e [employer], gas, oil, or water [employer] threatened to shut off services in your home? No 06/09/2024 Hunger Vital Sign Answer Date Recorded Within the past 12 months, y ou worried that your food would run out before you got the money to buy more. Never true 06/09/19 25 Within the past 12 months, t he food you bought just didn't last and you didn't have money to get more. Never true 06/09/2024 PRAPARE - Transportation Answer Date Re corded In the past 12 months, has l ack of transportation kept you from medical appointments or from getting medications? No 05/26 In the past 12 months, has l ack of transportation kept you from meetings, work, or from getting things needed for daily living? No 06/09/2024 Housing Stability Vital Sign Answer Jose e [...] place to sleep or slept in a assisted (including now)? No 12/30/2023 Housing Stability Vital Sign Answer Jose e Recorded In the last 12 months, was t here a time when you were not able to pay the mortgage or rent on time? No 06/09/2024 In the past 12 months, how m any times have you moved where you were living? 0 06/09/2024 At any time in the past 12 m [facility], were you homeless or living in a assisted (including now)? No 06/09/2024 Food Insecurity Answer Date Recorded Within the past 12 months, y ou worried that your food would run out before you got the money to buy more. 1 06/09/2024 Within the past 12 months, t he food you bought just didn't last and you didn't have money to get more. 1 06/09/2024 Interpersonal Safety Domain Source: IP Abuse Scr eening Answer Date Recorded Physical abuse Denies 06/08/2024 Verbal abuse Denies 06/08/2024 Emotional abuse Denies 06/08/2024 Financial abuse Denies 06/08/2024 Sexual abuse Denies 06/08/2024 Comments No Sex and Gender Information Value Date Recorded Sex Assigned at Not on file Legal Sex Female 1:59 PM EST Gender Identity Not on file Sexual Orientation Not on file Last Filed Vital Signs Vital Sign Reading Time Taken Comments Blood Pressure 137/83 06/11/2024 10:00 AM EST Pulse 105 06/11/2024 10:00 AM EST Temperature 36.8 C (98.3 F) 06/11/2024 10:00 AM EST Respiratory Rate 16 06/11/2024 10:0 0 AM EST Oxygen Saturation 92% 06/11/2024 10: 00 AM EST Inhaled Oxygen Concentration - - Weight 88.8 kg (195 lb 12.8 oz) 025 12:37 PM EST Height 170.2 cm (5' 7 ) 06/08/2024 12:3 7 PM EST Body Mass Index 30.67 06/08/2024 12:37 PM EST Plan of Treatment Health Maintenance Due Date Last Done Comments Depression Screen 1980 HIV screen 10/06/1983 Hepatitis C screen 1986 Hepatitis B vaccine (1 of 3 - 19+ 3-dose series) 10/06/1987 DTaP/Tdap/Td vaccine (1 - Tdap) 05/17/1997 05/16/1997 Diabetes screen 10/06/2003 Lipids 2008 FIT/FOBT: Average risk 2013 Fecal-DNA (Cologuard): Powell ge risk 2013 Sigmoidoscopy/CT colonography 2013 Pneumococcal 50+ years Vacci ne (1 of 1 - PCV) 2018 Shingles vaccine (1 of 2) 2018 Breast cancer screen 02/03/2021 02/03/2019 Annual Wellness Visit (Medicare) 12/30/2023 COVID-19 Vaccine (2023-2 5 season) 2024 05/13/2021, 08/22/2020, 08/02/2020 Flu vaccine (#1) 12/24/2024 05/13/2021, 04/28/2020, 03/06/2016 Colonoscopy 10/21/2027 10/20/2017 Colorectal Cancer Screen 10/21/2027 Hepatitis A vaccine Aged Out No longe r eligible based on patient's age to complete this topic Hib vaccine Aged Out No longer eligi ble based on patient's age to complete this topic Meningococcal (ACWY) vaccine Aged Out No longer eligible based on patient's age to complete this topic Meningococcal B vaccine Aged Out No l onger eligible based on patient's age to complete this topic Polio vaccine Aged Out No longer elig ible based on patient's age to complete this topic Medical Devices Implanted Type Area Gluing Pressman Device Identifier Shelf Expiration Date Model / Serial / Lot Floseal Hemostat Matrx 5ml Needle Free Implanted:Qty : 1 on 02/09/2018 by Ronal Matos MD at [facility]/Gr aft/Tis bladimir/Hum an/Synt h N/A: Spine Lumbar [employer] BETHEL-PMM 06/10/2019 [id number] / / [id number] Clip Braided 360 Catheter Resolution Ultra - [id number] Implanted:Qty : 1 on 01/07/2024 by Ricki De La Cruz MD at [facility] N/A: Other [employer]- [id number] 07/22/2026 [id number] / / [id number] Description:Clip placed at G J junction Clip Hemostasis Mantis 2.8mm X 235cm - [id number] Implanted:Qty : 2 on 01/07/2024 by Ricki De La Cruz MD at [facility] N/A: Other [employer] [id number] 05/09/2026 [id number] / / [id number] Description:Clip placed at G J junction Allograft Bne Bridge 50x25 Mm 24 Cc Bioadapt - [id number] Implanted:Qty : 1 on 06/08/2024 by Jovana Guardado MD at [facility] N/A: Spine Lumbar [employer] 01/06/2027 [id number] / [id number] / [id number] Set Screw 5.5-6.0 - [id number] Implanted:Qty : 4 on 06/08/2024 by Jovana Guardado MD at [facility] N/A: Spine Lumbar [employer] [id number] / / Screw Poly Solid 6.5x40 - [id number] Implanted:Qty : 2 on 06/08/2024 by Jovana Guardado MD at [facility] N/A: Spine Lumbar [employer] [id number] / / Screw Poly Solid 6.5x45 - [id number] Implanted:Qty : 2 on 06/08/2024 by Jovana Guardado MD at [facility] N/A: Spine Lumbar [employer] [id number] / / Dhaval Ti Prebent 5.5x35 - [id number] Implanted:Qty : 2 on 06/08/2024 by Jovana Guardado MD at [facility] N/A: Spine Lumbar [employer] [id number] / / Insurance MEDICARE Member Subscriber Plan / Payer (Ef fective 2022-Present) Name:Candy Booth Relation to Subscriber:Self Name:Candy Booth Payer ID:Not on file Group ID:Not on file Type:Not on file Address: [address] MEDICARE MEDICARE Advance Directives Documents on File Type Date Recorded Patient Pipe Washer Expl anation ACP-Advance Directive 10/19/2017 4:34 PM * Full Code (Latest Code Status on File) Date Activated Date Inactivated Comments 06/08/2024 12:06 PM 06/11/2024 7:12 PM * Full Code Date Activated Date Inactivated Comments 01/06/2024 9:27 AM 01/11/2024 3:09 PM * Full Code Date Activated Date Inactivated Comments 12/30/2023 6:19 PM 01/05/2024 9:22 PM * Full Code Date Activated Date Inactivated Comments 10/19/2017 8:31 AM 10/20/2017 8:05 PM * Full Code Date Activated Date Inactivated Comments 10/18/2017 8:17 PM 10/19/2017 8:31 AM Care Teams Welder Assistant Relationship Specialty Start Date End Date Kymberly Gilmore MD PCP - General Family Medicine 10/18/17
--- OUTSIDE RECORDS SUMMARY | 2024-11-30 18:03 | XMS_ITS | Clinical Summary ---
Author Organization [employer] Address [id number] [place] [address] Care Team Providers Care Wood Scaler Name Role Phone Kymberly Gilmore MD Primary Care Provider [phone] Allergies Active Allergy Reactions Criticality Noted Date Comments Codeine Other (See Comments) Low 12/10/2022 Intolerance, sleep apnea Milk Other (See Comments) 12/10/2022 Had gastric bypass in the past, GI bleed history Nsaids (Non-Steroidal Anti-Inflammatory Drug) Other (See Comments) High 09/06/2015 Other Reaction(s): Unknown Other reaction(s): Other: See Comments Has not taken due to gastric bypass surgery in the past GI bleed Venlafaxine Analogues 2020 Other Reaction(s): Unknown, Unknown Medications amitriptyline (ELAVIL) 100 mg tablet Take 1 tablet (100 mg total) by mouth nightly. 11/18/2022 Active oxyCODONE (ROXICODONE) 30 mg immediate release tablet TAKE 1 TABLET BY MOUTH EVERY 4 HOURS 12/07/2022 Active pregabalin (LYRICA) 200 mg capsule Take 1 capsule (200 mg total) by mouth 3 (three) times a day. Active sertraline (ZOLOFT) 100 mg tablet Take 2 tablets every day by oral route for 90 days. Active eletriptan (RELPAX) 40 mg tablet TAKE 1 TABLET BY MOUTH NEEDED FOR MIGRAINE 11/08/2022 Active Active Problems Problem Noted Date Diagnosed Date Abnormal computerized axial tomography of abdome n 12/10/2022 Anxiety 12/10/2022 Bilateral hearing loss 12/10/2022 Cholelithiasis 12/10/2022 Congenital anomaly of aorta 12/10/2022 Disorder of intervertebral disc of cervical spin e 12/10/2022 Epigastric pain 12/10/2022 Gastroesophageal reflux disease 12/10/2022 Insomnia 12/10/2022 Migraine headache 12/10/2022 Depressive disorder 12/10/2022 Mitral valve insufficiency 12/10/2022 Patent foramen ovale 12/10/2022 Peripheral nerve disease 12/10/2022 Iron deficiency anemia due to chronic blood loss 10/11/2020 Anemia 03/01/2015 Osteoporosis 03/01/2015 Vitamin D deficiency 03/01/2015 Knee pain 09/21/2013 Foot pain 07/29/2013 Acute bronchitis 06/09/2013 Family History Medical History Relation Name Comments Breast cancer Cousin Breast cancer Maternal Aunt Relation Name Status Comments Cousin Maternal Aunt Social History Tobacco Use Types Packs/Day Years Used Date Smoking Tobacco: Every Day Cigarettes 1 20 Tobacco Cessation:Ready to Q uit: Not Asked Alcohol Use Standard Drinks/Week Comments Not Asked 0 (1 standard drink = 0.6 oz pur e alcohol) 2 drinks per week Childcare Answer Date Recorded Childcare Unknown 11/04/2018 Employment Answer Date Recorded Employment Unknown 11/04/2018 Hunger Screening Answer Date Recorded Within the past 12 months we worried whether our food would run out before we got money to buy more. Never True 12/10/2022 Within the past 12 months th e food we bought just didn't last and we didn't have money to get more. Never True 12/10/2022 Purpose - Life Answer Date Recorded Purpose and direction in life Unknown Comments No Sex and Gender Information Value Date Recorded Sex Assigned at Not on file Legal Sex Female 11:24 AM EDT Gender Identity Not on file Sexual Orientation Not on file Last Filed Vital Signs Vital Sign Reading Time Taken Comments Blood Pressure 132/95 12/10/2022 2:37 PM EDT Pulse 99 12/10/2022 2:37 PM EDT Temperature - - Respiratory Rate 18 12/10/2022 2:37 PM EDT Oxygen Saturation 93% 12/10/2022 2:37 PM EDT Inhaled Oxygen Concentration - - Weight 86.2 kg (190 lb) 12/10/2022 2:37 PM EDT Height 170.2 cm (5' 7 ) 12/10/2022 2:37 PM EDT Body Mass Index 29.76 12/10/2022 2:37 PM EDT Plan of Treatment Health Maintenance Due Date Last Done Comments Depression Screening 1980 DTaP,Tdap and Td Vaccines (1 - Tdap) 05/17/199704/26 Zoster (Shingles) Vaccine (1 of 2) 2018 Adult BMI Screening 12/11/2023 12/10/2022 Tobacco Screening 12/11/2023 12/10/2022 COVID-19 Vaccine (4 - 2023-2 5 season) 2024 05/13/2021, 08/22/2020, 08/02/2020 Influenza Vaccine 01/24/2025 05/13/2021 Medical Devices Not on file Insurance MEDICARE [facility] Care Teams Wood Scaler Relationship Specialty Start Date End Date Kymberly Gilmore MD [address] [place] [address] PCP - General Family Medicine 02/03/19
--- OUTSIDE RECORDS SUMMARY | 2024-11-30 18:03 | XMS_ITS | Patient Health Record ---
Author Organization The [facility] in [place] Address [address] [place] [address] Care Team Providers Care Lead Software Test Engineer Name Role Phone Kymberly Gilmore Primary Care Provider Abhijit Zhang [phone] Results Component Value Reference Range Notes XR ankle DELFINO 2V (Not yet rev iewed by provider) Interpretation: Performing Lab: Notes/Report: Source Facility: [place] [address] XRay Report Signed Patient: RASHID BOOTH MR#: [id number] : 1970 Acct:[id number] Age/Sex: 53 / F ADM Date: 06/01/24 Loc: [facility] Attending Dr: Abhijit Weeks D.P.M. Ordering Physician: Abhijit Weeks D.P.M. Date of Service: 06/01/24 Procedure(s): XR ankle DELFINO 2V Accession Number(s): [id number] cc: Kymberly Gilmore M.D.; Abhijit Weeks D.P.M. [address] [place] [address] Patient Name: RASHID BOOTH MRN: [id number] date: 1970 Sex: F Assigned Patient Location: RAD Current Patient Location: RAD Accession/Order Number: [id number] Exam Date: 06/01/2024 15:20 Report Date: 06/02/2024 13:33 At the request of: ABHIJIT WEEKS Procedure: XR ankle DELFINO 2V EXAMINATION: XR foot DELFINO 2V, XR ankle DELFINO 2V HISTORY: BILATERAL FOOT PAIN COMPARISON: No relevant comparison available. FINDINGS: RIGHT FINDINGS: BONES: No acute fracture or dislocation. Degenerative changes most significant at the first metatarsal-phalangeal and second interphalangeal joints with joint space narrowing marginal osteophyte formation SOFT TISSUES: Negative. No visible soft tissue swelling. OTHER: Negative. LEFT FINDINGS: BONES: There is a large subacute/chronic fracture along the posterior aspect of the calcaneus measuring 3.3 x 2.2 cm with cranial displacement measuring 2.1 cm. Some bone formation is observed with incomplete bony bridging. Degenerative changes most significant along the second interphalangeal joint SOFT TISSUES: Negative. No visible soft tissue swelling. OTHER: Negative. XR/XR ankle DELFINO 2V IMPRESSION: RIGHT CONCLUSION: Osteoarthritis LEFT CONCLUSION: Subacute/chronic displaced posterior calcaneus fracture Electronically authenticated by: TUYET JONES Date: 06/02/2024 13:33 Dictated By: Tuyet Jones M.D. Signed By: 06/02/241334 DD/ 32 TD/TT: Maintenance Trainer: [place] [address] XRay Report Signed Patient: RASHID BOOTH MR#: [id number] : 1970 Acct:[id number] Age/Sex: 53 / F ADM Date: 06/01/24 Loc: [facility] Attending Dr: Abhijit Weeks D.P.M. Ordering Physician: Abhijit Weeks D.P.M. Date of Service: 06/01/24 Procedure(s): XR ankle DELFINO 2V Accession Number(s): [id number] cc: Kymberly Gilmore; Abhijit Weeks D.P.M. [place] [address] Patient Name: RASHID BOOTH MRN: [id number] date: 1970 Sex: F Assigned Patient Location: RAD Current Patient Location: RAD Accession/Order Numb er: [id number] Exam Date: 06/01/2024 15:20 Report Date: 06/02/2024 13:33 At the request of: ABHIJIT WEEKS Procedure: XR ankle DELFINO 2V EXAMINATION: XR foot DELFINO 2V, XR ankle DELFINO 2V HISTORY: BILATERAL FOOT PAIN COMPARISON: No relev ant comparison available. FINDINGS: RIGHT FINDINGS: BONES: No acute frac ture or dislocation. Degenerative changes most significant at the first metatarsal-phalangeal and second interphalangeal joints with joint space narrowing arie inal osteophyte formation SOFT TISSUES: Negati ve. No visible soft tissue swelling. OTHER: Negative. LEFT FINDINGS: BONES: There is a la rge subacute/chronic fracture along the posterior aspect of the calcaneus measur ing 3.3 x 2.2 cm with cranial displacement measuring 2.1 cm. Some bone format ion is observed with incomplete bony bridging. Degenerative changes most signifi cant along the second interphalangeal joint SOFT TISSUES: Negati ve. No visible soft tissue swelling. OTHER: Negative. X R/XR ankle DELFINO 2V IMPRESSION: RIGHT CONCLUSION: Osteoarthritis LEFT CONCLUSION: Subacute/chronic displaced posterior calcaneus fracture Electronically authe nticated by: TUYET JONES Date: 06/02/2024 13:33 Dictated By: Tuyet Jones M.D. Signed By: 06/02/241334 DD/ 32 TD/TT: Maintenance Trainer: XR FOOT DELFINO 2V (Not yet revi ewed by provider) Interpretation: Performing Lab: Notes/Report: Source Facility: [place] [address] XRay Report Signed Patient: RASHID BOOTH MR#: [id number] : 1970 Acct:[id number] Age/Sex: 53 / F ADM Date: 06/01/24 Loc: RAD Attending Dr: Abhijit Weeks D.P.M. Ordering Physician: Abhijit Weeks D.P.M. Date of Service: 06/01/24 Procedure(s): XR foot DELFINO 2V Accession Number(s): [id number] cc: Kymberly Gilmore M.D.; Abhijit Weeks D.P.M. [place] [address] Patient Name: RASHID BOOTH MRN: [id number] date: 1970 Sex: F Assigned Patient Location: [facility] Current Patient Location: RAD Accession/Order Number: [id number] Exam Date: 06/01/2024 15:20 Report Date: 06/02/2024 13:33 At the request of: ABHIJIT WEEKS Procedure: XR foot DELFINO 2V EXAMINATION: XR foot DELFINO 2V, XR ankle DELFINO 2V HISTORY: BILATERAL FOOT PAIN COMPARISON: No relevant comparison available. FINDINGS: RIGHT FINDINGS: BONES: No acute fracture or dislocation. Degenerative changes most significant at the first metatarsal-phalangeal and second interphalangeal joints with joint space narrowing marginal osteophyte formation SOFT TISSUES: Negative. No visible soft tissue swelling. OTHER: Negative. LEFT FINDINGS: BONES: There is a large subacute/chronic fracture along the posterior aspect of the calcaneus measuring 3.3 x 2.2 cm with cranial displacement measuring 2.1 cm. Some bone formation is observed with incomplete bony bridging. Degenerative changes most significant along the second interphalangeal joint SOFT TISSUES: Negative. No visible soft tissue swelling. OTHER: Negative. XR/XR foot DELFINO 2V IMPRESSION: RIGHT CONCLUSION: Osteoarthritis LEFT CONCLUSION: Subacute/chronic displaced posterior calcaneus fracture Electronically authenticated by: TUYET JONES Date: 06/02/2024 13:33 Dictated By: Tuyet Jones M.D. Signed By: 06/02/241334 DD/ 133 TD/TT: Maintenance Trainer: [place] [address] XRay Report Signed Patient: RASHID BOOTH MR#: [id number] : 1970 Acct:[id number] Age/Sex: 53 / F ADM Date: 06/01/24 Loc: RAD Attending Dr: Abhijit Weeks D.P.M. Ordering Physician: Abhijit Weeks D.P.M. Date of Service: 06/01/24 Procedure(s): XR foot DELFINO 2V Accession Number(s): [id number] cc: Kymberly Gilmore; Abhijit Weeks D.P.M. [facility] [place] [address] Patient Name: RASHID BOOTH MRN: [facility]:[id number] date: 1970 Sex: F Assigned Patient Location: [facility] Current Patient Location: [facility] Accession/Order Numb er: [id number] Exam Date: 06/01/2024 15:20 Report Date: 06/02/2024 13:33 At the request of: ABHIJIT WEEKS Procedure: XR foot DELFINO 2V EXAMINATION: XR foot DELFINO 2V, XR ankle DELFINO 2V HISTORY: BILATERAL FOOT PAIN COMPARISON: No relev ant comparison available. FINDINGS: RIGHT FINDINGS: BONES: No acute frac ture or dislocation. Degenerative changes most significant at the first metatarsal-phalangeal and second interphalangeal joints with joint space narrowing arie inal osteophyte formation SOFT TISSUES: Negati ve. No visible soft tissue swelling. OTHER: Negative. LEFT FINDINGS: BONES: There is a la rge subacute/chronic fracture along the posterior aspect of the calcaneus measur ing 3.3 x 2.2 cm with cranial displacement measuring 2.1 cm. Some bone format ion is observed with incomplete bony bridging. Degenerative changes most signifi cant along the second interphalangeal joint SOFT TISSUES: Negati ve. No visible soft tissue swelling. OTHER: Negative. X R/XR foot DELFINO 2V IMPRESSION: RIGHT CONCLUSION: Osteoarthritis LEFT CONCLUSION: Subacute/chronic displaced posterior calcaneus fracture Electronically authe nticated by: TUYET JONES Date: 06/02/2024 13:33 Dictated By: Tuyet Jones M.D. 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) Active confirmed Problem Pain in left ankle and joints of left foot (M25.572) Active confirmed Problem Pain in right foot (553088536092267) Pain in right foot (M79.671) Active confirmed Encounters Encounter Location Date Provider Diagnosis [facility] (PODIATRY) [address] [place] [address] [place] [address] 06/01/2024 Abhijit Weeks Pain in left ankle and joints of left foot M25.572 ; Post-traumatic osteoarthritis, left ankle and foot M19.172 ; Pain in right foot M79.671 and Pain in right ankle and joints of right foot M25.571 Assessments Encounter Date Diagnosis (ICD Code) Assessment Notes Treatment Notes Treatment Clinical Notes Section Notes 06/01/2024 Post-traumatic osteoarthritis , left ankle and [...] no prescriptions were given 06/01/2024 Pain in left ankle and joints of left foot (ICD-10 - M25.572) 06/01/2024 Pain in right foot (ICD-10 - M79.671) 06/01/2024 Pain in right ankle and joints of right foot (ICD-10 - M25.571) Plan Of Treatment Pending Test Test Name Order Date XR Ankle LT AP & LATERAL 06/01/2024 XR Ankle RT AP and LATERAL 06/01/2024 XR Foot LT AP and Lat 06/01/2024 XR Foot RT AP and Lat 06/01/2024 XR FOOT DELFINO 2V 06/02/2024 XR ankle DELFINO 2V 06/02/2024 Insurance Providers Payer Name Payer Address Payer Phone Subscriber Number Group Number Insured Name Patient Relationship to Insured Coverage Start Date Coverage End Date [employer] ACCESS PPO PLUS LOCAL PLAN [address] [place] [address] [id number] Phillip Rashid guillen Self - patient is the insured 5 [place]IC[place] [address] [place] [place] [address] [id number] Phillip Rashid guillen Self - patient is the insured 3
--- OUTSIDE RECORDS SUMMARY | 2024-11-30 18:03 | XMS_ITS | Patient Health Record ---
Author Organization [facility] Address [address] [place] [address] Care Team Providers Care Keeper Helper Name Role Phone Kymberly Mitchell M.D. Primary Care Provider Unavail able JewelHi Rochaniles Unavailable [phone] Cat BURKETT, Bhupindre Unavailable Unavailab David Sosa Unavailable [phone] Ana Lilia Mcclain Unavailable Allergies No Known Allergies Results Component Value Reference Range Notes POC ISTAT CHEM 8 AT IOS Reviewed date:04/23/2024 09:16:02 AM Interpretation: Performing Lab: Notes/Report: [facility] Original Ordering Provider: Rajeev VILLALBA Provider Role: Ordering IOS BUN WB ISTAT 5 8-26 mg/dl IOS CHLORIDE WB ISTAT 98 98-109 meq/l IOS GLUCOSE WB ISTAT 100 70-108 mg/dl IOS CREATININE WB ISTAT 0.6 0.6-1.3 mg/dl IOS POTASSIUM WB ISTAT 4.3 3.5-4.9 meq/l IOS SODIUM WB ISTAT 135 138-146 meq/l IOS TOTAL CO2 WB (ISTAT) 25 23-33 meq/l GFR, ESTIMATED, IOS Reviewed date:04/23/2024 09:16:02 AM Interpretation: Performing Lab: Notes/Report: [facility] Original Ordering Provider: Rajeev VILLALBA Provider Role: Ordering ESTIMATED GFR, IOS > 90 >60 ml/min/1.73m2 Pediatric calculator link [email or web address]://www.kidney.org /professionals/kdoqi/g fr_[email or web address] Effective Feb 25, 2022 These results are [...] following therapy that affects renal tubular secretion. Performing Lab: see note [facility] [address] [place] [id number] Bipin Patrick TYPE AND SCREEN CAPTURE Reviewed date:04/23/2024 09:16:02 AM Interpretation: Performing Lab: Notes/Report: [facility] Original Ordering Provider: Rajeev VILLALBA Provider Role: Ordering ABO CAPTURE O RH CAPTURE (2 D CLONES) NEG INDIRECT FADI CAPTURE NEG Performing Lab: see note [facility] [address] [place] [id number] Bipin Bluetest XR LUMBAR SPINE 1 VW Reviewed date:06/09/2024 03:29:49 PM Interpretation: Performing Lab: Notes/Report: MOBILE LATERAL LUMBAR SPINE: [facility] [address] [place] [address], Original Ordering Provider: Rajeev PLASENCIA Provider Role: Ordering EKG 12-LEAD Reviewed date:06/09/2024 03:29:49 PM Interpretation: Performing Lab: Notes/Report: [address] [place] [address] [address] [place] [address], Original Ordering Provider: Rajeev ARZOLA Provider Role: Attending XR WRIST LEFT STANDARD Reviewed date:06/14/2024 08:57:56 AM Interpretation: Performing Lab: Notes/Report: XR WRIST LEFT (MIN 3 VIEWS) [place] [address] [place] [address], Original Ordering Provider: Rajeev GRIFFIN Provider Role: Ordering Surgery Scheduling (Not yet reviewed by provider) Interpretation: Performing Lab: Notes/Report: Primary Insurance Company: MEDICARE Surgeon/Assist: [facility]/ALESIA OR DVAID Surgery Location: [facility] Surgery Date & Time: 06/08/24 @ 2:15PM Hosp arrival time day of: 12:15PM Surgery End Time: 4:15PM Procedure: L4-5 REVISION DECOMPRESSION WITH FUSION Special Equipment: SSEP, PRONE, TRINIDAD TABLE, SURGALIGN Diagnosis: M48.061 FORAMINAL STENOSIS Admission Type: OUTPATIENT Anesthesia Type/CPNB: GENERAL Bed 72 HOURS Post-op Appointment Date: 07/30/24 @ 10:30AM Lab Location: [facility] Lab Date/Time: ON OR BEFORE 03/29/24 Carboy Filler: RAJWINDER Moran Physician: DR MITCHELL 04/07/24 @ 10AM Clearance Appt Date/T DR QUAN SHARPE 04/02/24 @ 9:30AM History & Physical Appointment Date/: 04/15/24 @ 2PM GRAVES EKG 12-LEAD Reviewed date:06/16/2024 11:01:31 AM Interpretation: Performing Lab: Notes/Report: [address] [place] [address], Original Ordering Provider: Rajeev ARZOLA Provider Role: Attending XR LUMBAR SPINE 1 VW Reviewed date:06/09/2024 03:29:49 PM Interpretation: Performing Lab: Notes/Report: MOBILE LATERAL LUMBAR SPINE: [place] [address], Original Ordering Provider: Rajeev PLASENCIA Provider Role: Ordering Reason For Referral Reason NO AUTH REQ..............................06/08/24...............................[facility] L4-5 REVISION DECOMPRESSION WITH FUSION 11344, 91356, 51600, 78985, [address] Diagnosis 1 Lumbar radiculopathy (M54.16) Diagnosis 2 Foraminal stenosis of lumbar region (M48 .061) Referral Organizati on [facility] Referring Provider First Name Jovana Referring Provider Last Name St Rocha Referring Provider Speciality Orthopedic Surgery Referred Organizati on [facility] Outpatient Referred Address [address] [place] [id number], Procedure 1 Arthrodesis, posterior lumbar, 1 lumbar level (96536) Procedure 2 Laminectomy, facetectomy and foraminotom y single lumbar (77258) Procedure 3 Laminectomy, facetectomy and foraminotom y additional vertebral segment (65294) Procedure 4 Posterior non-segmental instrumentation (20090) Procedure 5 Autograft for spine surgery only; local obtained from same incision (64629) General Notes Rajwinder Yang 03/17/2024 03:10:31 PM >, Kadi Leblanc 03/18/2024 08:02:17 AM > MEDICARE PARTS A & B ACTIVE AND EFFECTIVE 10/24/22 PER [employer]. NO AUTHORIZATION REQUIRED. SENT OVER TO IOS., Rajwinder Yang 05/28/2024 10:21:33 AM >LOCATION AND DATE CHANGE, Kadi Leblanc 05/28/2024 10:42:08 AM > DATE AND LOCATION CHANGE NOTED. SINCE THIS IS BEING DONE AT A FACILITY OTHER THAN S IT NEEDS CHANGED TO OUTPATIENT NONE OF THE PROVIDED CODES ARE ON THE MEDICARE INPATIENT LIST. PLEASE UPDATE WITH [facility]., Rajwinder Yang 05/31/2024 08:50:58 AM >CHANGED TO OUTPATIENT, Kadi Leblanc 05/31/2024 09:01:06 AM > THANK YOU, FAXED TO [facility]. Referral Priority Stat Medications Medication SIG (Take, Route, Fr equency, Duration) Notes Start Date End Date Status sertraline Active pregabalin Active oxyCODONE Active ondansetron Active eletriptan Active Vitamin D3 Active amitriptyline Active ALPRAZolam Active None Active Flexeril 10 mg 1 tab(s) orally 3 ti mes a day prn muscle spasms 04/19/2024 Active Social History Tobacco Use: Social History Observation Description Date Details (start date - stop date) Former Smoker NA - NA AUDIT-C (Standard) Question Answer Notes Did you have a drink containing alcohol in the p ast year? No Points 0 Interpretation Negative Tobacco Control (Standard) Question Answer Notes Tobacco use: Former smoker Problems Problem Type SNOMED Code ICD Code Onset Dates Problem Status W/U Status Risk Notes Problem Lumbar radiculopathy (610475514) Lumbar radiculopathy (M54.16) Active confirmed Problem 187059296 Arthrodesis status (Z98.1) Active confirmed Problem 813246290063177 Left foot drop (M21.372) Active confirmed Problem Displacement of lumbar intervertebral disc without myelopathy (72575970) Bulging of lumbar intervertebral disc (M51.26) Active confirmed Problem Spinal stenosis of lumbar region (17750174) Foraminal stenosis of lumbar region (M48.061) Active confirmed Problem 170974040 Encounter for other orthopedic aftercare (Z47.89) Active confirmed Problem Other intervertebral disc degeneration, 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) Active confirmed Vital Signs Height 5'7 in 04/15/2024 Weight 190 lbs 04/15/2024 BMI 29.75 04/15/2024 Encounters Encounter Location Date Provider Diagnosis [facility] Office [address] [facility] [place] [address] 02/13[facility]2024 [facility] Bulging of lumbar intervertebral disc M51.26 ; Foraminal stenosis of lumbar region M48.061 and Lumbar radiculopathy M54.16 [facility] [address] [place] [address] 04/15/2024 David Hardy Lumbar radiculopathy M54.16 ; Bulging of lumbar intervertebral disc M51.26 and Foraminal stenosis of lumbar region M48.061 [facility] Outpatient [address] [place] [phone] 06/08[facility]20[facility] Foraminal stenosis o f lumbar region M48.061 ; Bulging of lumbar intervertebral disc M51.26 and Other intervertebral disc degeneration, lumbar region with discogenic back pain and lower extremity pain M51.362 [facility] [address] [facility] [place] [address] 08/13/2024 Ana Lilia Mcclain Encounter for other orthopedic aftercare Z47.89 ; Left foot drop M21.372 and Arthrodesis status Z98.1 Assessments Encounter Date Diagnosis (ICD Code) Assessment Notes Treatment Notes Treatment Clinical Notes Section Notes 02/13/2024 Bulging of lumbar intervertebral disc (ICD-10 - M51.26) 1. L4-5 HNP/stenos is/radicul opathy 02/13/2024 Foraminal stenosis of lumbar region (ICD-10 - M48.061) 1. L4-5 HNP/stenos is/radicul opathy 04/15/2024 Lumbar radiculopathy (ICD-10 - M54.16) *patient prescribed oxycodone 04/15/2024 Bulging of lumbar intervertebral disc (ICD-10 - M51.26) 06/08/2024 Bulging of lumbar intervertebral disc (ICD-10 - M51.26) 06/08/2024 Foraminal stenosis of lumbar region (ICD-10 - M48.061) 08/13/2024 Left foot drop (ICD-10 - M21.372) 1. 2 months s/p L4-5 decompress ion/fusion 2. Left foot drop 08/13/2024 Encounter for other orthopedic aftercare (ICD-10 - Z47.89) 1. 2 months s/p L4-5 decompress ion/fusion 2. Left foot drop 02/13/2024 Lumbar radiculopathy (ICD-10 - M54.16) 1. L4-5 HNP/stenos is/radicul opathy 08/13/2024 Arthrodesis status (ICD-10 - Z98.1) 1. 2 months s/p L4-5 decompress ion/fusion 2. Left foot drop 06/08/2024 Other intervertebral disc degeneration, lumbar region with discogenic back pain and lower extremity pain (ICD-10 - M51.362) 04/15/2024 Foraminal stenosis of lumbar region (ICD-10 - M48.061) 02/13/2024 Other Plan established by Dr. Guardado. I reviewed patient's MRI results with her and discussed with Dr. Guardado and at this time he is recommending a L4-5 revision decompression/fusi on. It was discussed with patient that fusion is necessary due to the fact that total facetecetomy's would need to be performed In order to free up the foraminal stenosis. This would lead to instability requiring a fusion. Surgical risks and benefits were discussed. Risks include, but are not limited to paralysis, infection, dural tear, nerve root injury, nonunion, etc. Patient would like to proceed with surgical intervention. The patient is very much in agreement with the treatment and/or diagnostic plan set forth and all questions were answered to the patient's satisfaction. Thanks once again. If we can be of further service to your patients with disorders of the spine, cervical, thoracic, or lumbar, please do not hesitate to contact Dr. Guardado. Best regards, 1. L4-5 HNP/stenos is/radicul opathy 04/15/2024 Other A lumbosacral corset brace has been ordered today for the patient to begin immediate use for pain relief and support. The patient will use this brace daily for support and immobilization of the lumbar spine. The brace is necessary both prior to surgery and upon returning home from surgery to limit motion of the spine to help facilitate healing in the initial post-op period. 08/13/2024 Samantha Nicole is improving postoperatively and is starting to gain more strength as her pain in her lower extremities decreases. I have encouraged her to ambulate as much as she tolerates. She can discontinue use of the LSO brace and gradually start increasing her activity. We will see her back in 6 weeks for her next post op recheck. Thanks once again. If we can be of further service to your patients with disorders of the spine, cervical, thoracic, or lumbar, please do not hesitate to contact Dr. Guardado. Best regards, 1. 2 months s/p L4-5 decompress ion/fusion 2. Left foot drop Plan Of Treatment Pending Test Test Name Order Date Lumbar spine, 4v flex ext - 48259 2023 Lumbar spine 2v ap and lat - 05223 08/13 Surgery Scheduling 03/17/2024 DME - Lumbar Support, Surgical OTS 04/15 Type and Cross Blood 2 units 04/15/2024 Future Test Test Name Order Date Chest 2 views - 02971 03/17/2024 CBC 03/17/2024 PT/PTT 03/17/2024 BMP 03/17/2024 MRSA (Bilateral Nares) PCR 03/17/2024 EKG 03/17/2024 Insurance Providers Payer Name Payer Address Payer Phone Subscriber Number Group Number Insured Name Patient Relationship to Insured Coverage Start Date Coverage End Date [employer] [address] [place] [address] [id number] JORGE ORTEGA Spouse - patient is the spouse of the insured [place] [address] [phone] [id number] HELIO JIMENEZ RASHID Self - patient is the insured [facility] [address] [address] [place] [address] [id number] HELIO JIMENEZ JORGE Spouse - patient is the spouse of the insured 4 Medical (General) History Medical History History ICD Code High Blood Pressure Heart Attack Heart Failure Abnormal Heart Rhythm Lung Disease Bronchitis Stomach ulcers Gastric Reflux Irritable bowel syndrome Osteoarthritis Osteoporosis Bleeding Disorders Anemia Endometriosis Ovarian Cysts Anxiety Depression Surgical History Surgery Date(Month/Year) L4-5 laminectomy, PSF 06/08/2024
--- OUTSIDE RECORDS SUMMARY | 2024-11-30 18:03 | XMS_ITS | Encounter Summary ---
Author Organization [facility] tem Address [id number] [address] [place] [address] Care Team Providers Care Funeral Home Assistant Name Role Phone Kymberly Gilmore MD Primary Care Provider [phone] Encounter Details Date Type Department Care Team (Late st Contact Info) Description 11/28/[address] [facility] [address] [place] [phone] Kymberly Gilmore MD [address] [place] [address] Social History Tobacco Use Types Packs/Day Years Used Date Smoking Tobacco: Never Assessed Childcare Answer Date Recorded Childcare Unknown 11/04/2018 Employment Answer Date Recorded Employment Unknown 11/04/2018 Purpose - Life Answer Date Recorded Purpose and direction in life Unknown Comments No Sex and Gender Information Value Date Recorded Sex Assigned at Not on file Legal Sex Female 11:24 AM EDT Gender Identity Not on file Sexual Orientation Not on file documented as of this encounter Plan of Treatment Not on file documented as of this encounter Procedures Procedure Name Priority Date/Time Associated Diagnosis Comments MR LUMBAR SPINE W WO CONT Routine 01/27/2020 documented in this encounter Results * MR lumbar spine with and without contrast (01/27/2020) Anatomical Region Laterality Modality MSK, Neuro, Spine, L-spine, Spine Covera N/A Magnetic Resonance us Kymberly Gilmore MD IMG MRI ORDERABLES Final Resul t documented in this encounter Visit Diagnoses Not on filedocumented in this encounter Care Teams Funeral Home Assistant Relationship Specialty Start Date End Date Kymberly Gilmore MD [address] [place] [address] PCP - General Family Medicine 02/03/19 documented as of this encounter
--- OUTSIDE RECORDS SUMMARY | 2024-11-30 18:03 | XMS_ITS | Encounter Summary ---
Author Organization [facility] Address [address] [place] [address] Care Team Providers Care Segment Block Layer Name Role Phone Kymberly Gilmore MD Primary Care Provider [phone] Source Comments In the event this information is protected by the Federal Confidentiality of Alcohol and Drug AbusePatient Records regulations: The Federal rules restrict any use of the information to criminally investigate or prosecute any alcohol or drug abuse patient.[facility] Encounter Details Date Type Department Care Team (Latest Contact Info) Description 10/03/2020 H&P External-NonCCF Provider, External, PA-C Do not enter address information under generic External Provider. Social History Tobacco Use Types Packs/Day Years Used Date Smoking Tobacco: Former Smokeless Tobacco: Never Alcohol Use Standard Drinks/Week Comments Not Currently 0 (1 standard drink = 0.6 oz pur e alcohol) PHQ-2 Answer Date Recorded PHQ-2 score 6 06/07/2019 Area Deprivation Index Answer Date Madhu rded National Score (1-100), lower number is lower ri sk Not on file 05/03/2020 State Score (1-10), lower number is lower risk N ot on file 05/03/2020 Data from: https://www.neighborhoodatlas.medicine.[facility] [place].edu/. Last address used for calculation Not on file 05/03/2020 Comments Unknown Sex and Gender Information Value Date Recorded Sex Assigned at Not on file Legal Sex Female 5:53 AM EDT Gender Identity Not on file Sexual Orientation Not on file documented as of this encounter Functional Status * Are you deaf or do you have serious difficulty hearing? Answer Date of Assessment Author No 09/06/2015 5:27 PM EDT Maureen Kumar * Are you blind or do you have serious difficulty seeing, even when wearing glasses? Answer Date of Assessment Author No 09/06/2015 5:27 PM EDT Maureen Kumar * Do you have serious difficulty walking or climbing stairs? Answer Date of Assessment Author No 09/06/2015 5:27 PM EDT Maureen Kumar * Do you have difficulty dressing or bathing? Answer Date of Assessment Author No 09/06/2015 5:27 PM EDT Maureen Kumar * Because of a physical, mental, or emotional condition, do you have difficulty doing errands alone such as visiting a doctor's office or shopping? Answer Date of Assessment Author No 09/06/2015 5:27 PM EDT Maureen Kumar documented as of this encounter Mental Status * Because of a physical, mental, or emotional condition, do you have serious difficulty concentrating, remembering, or making decisions? Answer Entry Date Author No 09/06/2015 5:27 PM EDT Maureen Kumar documented in this encounter Plan of Treatment Not on file documented as of this encounter Visit Diagnoses Not on filedocumented in this encounter Care Teams Segment Block Layer Relationship Specialty [place] [address] [place] [phone] PCP - General Family Medicine 10/11/20 documented as of this encounter
--- OUTSIDE RECORDS SUMMARY | 2024-11-30 18:04 | XMS_ITS | Clinical Summary ---
Author Organization [facility] Address [address] [place] [address] Phone Care Team Providers Care Field Handyman Name Role Phone Kymberly Gilmore MD Primary Care Provider [phone] Yossi Hunter MD Unavailable [phone] Allergies Active Allergy Reactions Criticality Noted Date Comments Codeine Other Low 12/10/2022 PATIENT DENIES Intolerance, sleep apnea Milk GI Upset 12/10/2022 Had gastric bypass in the past, GI bleed history Nsaids (Non-Steroidal Anti-Inflammatory Drug) Other High 09/06/2015 Other Reaction(s): Unknown Other reaction(s): Other: See Comments Has not taken due to gastric bypass surgery in the past GI bleed Venlafaxine Analogues Unknown 2020 Other Reaction(s): Unknown, Unknown Medications pregabalin (Lyrica) 200 mg capsule Take 1 capsule (200 mg) by mouth 3 times a day. Active sertraline (Zoloft) 100 mg tablet Take 1 tablet (100 mg) by mouth once daily. 3 Active eletriptan (Relpax) 40 mg tablet Take 1 tablet (40 mg) by mouth if needed for migraine. 3 Active cholecalciferol (Vitamin D-3) 50,000 unit capsule Take 1 capsule (50,000 Units) by mouth 2 times a week. 3 Active amitriptyline (Elavil) 75 mg tablet Take 100 mg by mouth once daily at bedtime. 1 Active ALPRAZolam (Xanax) 0.5 mg tablet Take 1 tablet (0.5 mg) by mouth every 4 hours. 3 Active oxyCODONE (Roxicodone) 20 mg immediate release tablet Take 1 tablet (20 mg) by mouth every 4 hours if needed for pain. 4 Active metoprolol succinate XL (Toprol-XL) 50 mg 24 hr tabletIndications :Essential hypertension Take 1 tablet (50 mg) by mouth once daily. Do not crush or chew. 90 tablet 3 4 05/07/20 25 Active Active Problems Problem Noted Date Diagnosed Date Pre-op examination 04/07/2024 Essential hypertension 05/27/2023 BMI 32.0-32.9,adult 05/27/2023 Smoker 05/27/2023 Shortness of breath 05/27/2023 Heart valve disease 05/27/2023 Dizziness 05/27/2023 Dilation of aorta 05/27/2023 Family History Medical History Relation Name Comments COPD Mother Heart murmur Mother RENAL CARSONOMA Mother Relation Name Status Comments Father Mother Alive Social History Tobacco Use Types Packs/Day Years Used Date Smoking Tobacco: Former Cigarettes Q uit: 2021 Smokeless Tobacco: Never Tobacco Cessation:Counseling Given: Not Answered Alcohol Use Standard Drinks/Week Comments Yes 0 (1 standard drink = 0.6 oz pur e alcohol) rarely, 1x a ,month or less Comments Unknown Sex and Gender Information Value Date Recorded Sex Assigned at Not on file Legal Sex Female 3:22 AM EST Gender Identity Not on file Sexual Orientation Not on file Last Filed Vital Signs Vital Sign Reading Time Taken Comments Blood Pressure 126/80 05/07/2024 9:22 AM EST Pulse 100 05/07/2024 9:22 AM EST Temperature - - Respiratory Rate 20 07/15/2023 12:00 PM EST Oxygen Saturation 94% 07/15/2023 11:56 AM EST Inhaled Oxygen Concentration - - Weight 86.2 kg (190 lb) 05/07/2024 9:22 AM EST Height 162.6 cm (5' 4 ) 05/07/2024 9:22 AM EST Body Mass Index 32.61 05/07/2024 9:22 AM EST Plan of Treatment Health Maintenance Due Date Last Done Comments Bone Density Scan 1968 CT Colonography 1968 Colonoscopy 1968 Colorectal Cancer Screening 1968 FIT-DNA (Cologuard) 1968 FIT 1968 HIV Screening 1968 Lipid Panel 1970 Medicare Annual Wellness Visit (AWV) 1968 Sigmoidoscopy 1968 Diabetes Screening 1986 Hepatitis C Screening 1986 Pneumococcal Vaccine (1 of 2 - PCV) 10/06/1987 Cervical Cancer Screening 1989 HPV/Cotest 1989 Pap Smear 1989 DTaP/Tdap/Td Vaccines (1 - Tdap) 05/17/1997 05/16/1997 Mammogram 2008 Zoster Vaccines (1 of 2) 2018 COVID-19 Vaccine ( - season) 2024 05/13/2021, 08/22/2020, 08/02/2020 Influenza Vaccine (#1) 2025 , 04/28/2020, 03/06/2016 MMR Vaccines Completed 05/16/1997 Hepatitis B Vaccines Completed 03/29/2005, 10/12/1997, 06/10/1997, Additional history exists HIB Vaccines Aged Out No longer eligi ble based on patient's age to complete this topic HPV Vaccines (No Doses Required) Completed Hepatitis A Vaccines Aged Out No long er eligible based on patient's age to complete this topic IPV Vaccines Aged Out No longer eligi ble based on patient's age to complete this topic Meningococcal Vaccine Aged Out No doris mike eligible based on patient's age to complete this topic Rotavirus Vaccines Aged Out No longer eligible based on patient's age to complete this topic [place] [address] [place] [address] MEDICARE PART A AND B [facility] MEDICARE PART A AND B Care Teams Field Handyman Relationship Specialty Start Date End Date Kymberly Gilmore MD [address] [place] [address] PCP - General Family Medicine 05/27/23 Yossi Hunter MD [address] [facility] [address], [address] [place] [address] Cottage Attendant Cardiology 06/17/23
--- OUTSIDE RECORDS SUMMARY | 2024-11-30 18:04 | XMS_ITS | Clinical Summary ---
Author Organization [facility] Address [address] [place] [address] Care Team Providers Care Meat Stuffer Name Role Phone Kymberly Gilmore MD Primary Care Provider [phone] Allergies Active Allergy Reactions Criticality Noted Date Comments Codeine Hives,Other Low 12/10/2022 Other Reaction(s): Not available Intolerance, sleep apnea Milk (Cow) 12/10/2022 Other Reaction(s): GI Upset, Not available, Other (See Comments) Had gastric bypass in the past, GI bleed history Nsaids Unknown High 09/06/2015 Other Reaction(s): Other (See Comments) Other reaction(s): Other: See Comments Has not taken due to gastric bypass surgery in the past GI bleed Sulfa Antibiotics Unknown 10/22/2023 Medications sertraline (Zoloft) 100 MG tablet Daily 3 Active pregabalin (Lyrica) 200 MG capsule Take 200 mg by mouth in the morning and 200 mg in the evening and 200 mg before bedtime. Active oxyCODONE (Roxicodone) 20 MG immediate release tablet Take 20 mg by mouth every 4 (four) hours if needed Active ondansetron ODT (Zofran-ODT) 4 MG disintegrating tablet Every 12 hours 4 Active eletriptan (Relpax) 40 MG tablet 1 tablet 3 Active cholecalciferol (Vitamin D-3) 1.25 MG (37794 UT) capsule Twice a Week 3 Active ALPRAZolam (Xanax) 0.5 MG tablet Take 0.5 mg by mouth every 4 (four) hours 3 Active acetaminophen (Tylenol) 500 MG tablet Take 1,000 mg by mouth every 4 (four) hours if needed Active Social History Tobacco Use Types Packs/Day Years Used Date Smoking Tobacco: Former Cigarettes 1.5 11 0 06/2012 - 06/2023 Smokeless Tobacco: Never Alcohol Use Standard Drinks/Week Comments Not Currently 0 (1 standard drink = 0.6 oz pur e alcohol) Comments Unknown Sex and Gender Information Value Date Recorded Sex Assigned at Not on file Legal Sex Female 7:29 PM EDT Gender Identity Not on file Sexual Orientation Not on file Last Filed Vital Signs Vital Sign Reading Time Taken Comments Blood Pressure 93/69 07/01/2017 12:00 PM EST Pulse - - Temperature - - Respiratory Rate - - Oxygen Saturation - - Inhaled Oxygen Concentration - - Weight 89.4 kg (197 lb) 01/11/2020 12:00 PM EDT Height 167.6 cm (5' 6 ) 01/11/2020 12:00 PM EDT Body Mass Index 31.8 01/11/2020 12:00 PM EDT Plan of Treatment Health Maintenance Due Date Last Done Comments CT Colonography 1968 Colonoscopy 1968 Colorectal Cancer Screening 1968 FIT-DNA 1968 FIT 1968 FOBT 1968 Sigmoidoscopy 1968 Pap Smear 1989 Cervical Cancer Screening 1998 HPV/Cotest 1998 Mammogram 02/04/2020 02/03/2019, 02/03/2019 Influenza Vaccine (#1) 2025 05/13/2021, 2019, 03/06/2016 Insurance [facility] MEDICARE Care Teams Meat Stuffer Relationship Specialty Start Date End Date Kymberly Gilmore MD PCP - General Family Medicine 10/22/23
--- NOTE | 2024-11-30 18:14 | ED.GENADUL1 ---
HPI HPI - General Adult General Chief complaint: Fall Stated complaint: Weakness Time Seen by Provider: 11/30/24 17:57 Source: patient Mode of arrival: ambulance Limitations: physical limitation History of Present Illness HPI narrative: 54-year-old female is coming to us brought by the EMS after they were called for shortness of breath that been going on for the last 2-week, on arrival the patient mentioned that she had a fall also over the last 24 hours and had a friend who helped her to get out of the bed, patient usually use a walker and she does not remember how she fell but she thinks that maybe she might had lost consciousness as well when she had the fall, the patient denies any nausea vomiting or any abdominal pain but she mentioned that she did not have a bowel movement or urinated enough today Patient also have shortness of breath that is obvious on examination she was already provided with a breathing treatment by the EMS after which she was feeling much better but she still short of breath she uses baseline of 4 L nasal cannula and she have a history of COPD No chest pain no fever no other concerns PT have back pain and right ankle pain after the fall in addition to left hip pain Related Data Home Medications ?Medication ?Instructions ?Recorded ?Confirmed pregabalin 200 mg capsule 200 mg PO TID 09/03/23 01/20/24 sertraline 100 mg tablet 200 mg PO DAILY 09/03/23 01/20/24 amitriptyline 75 mg tablet 75 mg PO .qhs 12/28/23 01/20/24 alprazolam 0.5 mg tablet 0.5 mg PO QID 01/06/24 01/20/24 oxycodone 20 mg tablet 20 mg PO Q4H PRN pain 01/06/24 01/20/24 sucralfate 1 gram tablet (Carafate) 1 g PO TID 01/06/24 01/20/24 pantoprazole 40 mg tablet,delayed 40 mg PO Q12H 01/15/24 01/20/24 release Allergies Allergy/AdvReac Type Severity Reaction Status Date / Time NSAIDS (Non-Steroidal AdvReac Intermediate Gastrointestinal Verified 11/30/24 18:03 Anti-Inflamma Upset Opioid HPI Opioid Management Most Recent Opioid Data: Last Pain Scale 3 Today, 18:17 Last ORT Total Score 1 12/28/23, 12:02 Last ORT Risk Category Low Risk 12/28/23, 12:02 Review of Systems ROS Status of ROS 10 or more systems reviewed and unremarkable except as noted in history and below PFSH PFS Medical History (Updated 01/20/24 @ 19:29 by YOON Silva) Thickening of wall of gallbladder ?K82.8 - Other specified diseases of gallbladder (ICD-10) Syncope ?R55 - Syncope and collapse (ICD-10) Peripheral neuropathy ?G62.9 - Polyneuropathy, unspecified (ICD-10) Chronic bilateral back pain ?M54.9 - Dorsalgia, unspecified (ICD-10) ?G89.29 - Other chronic pain (ICD-10) Afib ?I48.91 - Unspecified atrial fibrillation (ICD-10) Aortic aneurysm ?I71.9 - Aortic aneurysm of unspecified site, without rupture (ICD-10) GI bleed ?K92.2 - Gastrointestinal hemorrhage, unspecified (ICD-10) Surgical History Status post abdominoplasty ?Z98.890 - Other specified postprocedural states (ICD-10) Status post abdominoplasty ?Z98.890 - Other specified postprocedural states (ICD-10) H/O hysterectomy with oophorectomy H/O: hysterectomy ?Z90.710 - Acquired absence of both cervix and uterus (ICD-10) Gastric bypass status for obesity ?Z98.84 - Bariatric surgery status (ICD-10) Family History Mother Family history of cancer Family history of hypertension Social History Within the past year, how often did you have a drink containing alcohol: 2-4 times a month Within the past year, how often did you have six or more drinks on one occasion: never Smoking status: Former smoker Non-prescribed substance use: denies use Previous occupational history: disabled Highest level of school completed/degree received: Master's degree Are you now , , , , never or living with a partner: Little interest or pleasure in doing things: more than half the days Feeling down, depressed, or hopeless: several days Feel stressed/tense/nervous/anxious/difficulty sleeping: rather much Life stressor details: medical condition Exam Narrative Exam Narrative: Nurses notes and vital signs reviewed and patient looks hypoxic in mild distress General: Mild distress due to being hypoxic mostly and the patient is pale as well Skin: Warm, dry, no pallor noted. No rash. Head: Normocephalic, atraumatic. Neck: Supple, non-tender. Eye: Pupils are equal, round and EOMI. No scleral icterus. Cardiovascular: Regular Rate and Rhythm without murmur, gallop or rub. Respiratory: The patient have a distant breathing sound bilaterally and crackles heard in both lung call Back: 1+ pitting edema at the back as well and mottling obvious on the skin there is tenderness upon palpation of the intervertebral line as well as paraspinal lumbar level. Musculoskeletal: normal ROM, no calf or popliteal tenderness,mild bilateral leg edema and also pitting edema at the sacral area There is tenderness upon palpation of the right ankle and the patient mostly have a healing ecchymosis as well the patient also have tenderness palpation of the left hip still having full range of movement GI: Abdomen is soft, non-distended. Normal bowel sounds. No masses appreciated. No tenderness to palpation. No rebound, guarding, or rigidity noted. Neurological: A&O x4. No cranial nerve dysfunction observed. Constitutional Vital Signs, click to edit/add: Last Vital Signs Temp 98.2 F 11/30/24 17:56 Pulse 121 H 11/30/24 17:56 Resp 20 11/30/24 17:56 BP 102/79 11/30/24 17:56 Pulse Ox 98 11/30/24 18:00 O2 Del Method Nasal Cannula 11/30/24 18:00 O2 Flow Rate 4 11/30/24 18:00 Course Vital Signs Vital signs: Vital Signs Temperature 98.2 F 11/30/24 17:56 Pulse Rate 121 H 11/30/24 17:56 Respiratory Rate 11/30/24 17:56 Blood Pressure 102/79 11/30/24 17:56 Pulse Oximetry 100 11/30/24 17:56 Oxygen Delivery Method Room Air 11/30/24 17:56 Temperature 98.2 F 11/30/24 17:56 Pulse Rate 121 H 11/30/24 17:56 Respiratory Rate 11/30/24 17:56 Blood Pressure 102/79 11/30/24 17:56 Pulse Oximetry 98 11/30/24 18:00 Oxygen Delivery Method Nasal Cannula 11/30/24 18:00 Oxygen Delivery Flow Rate 4 11/30/24 18:00 Medical Decision Making MDM Narrative Medical decision making narrative: The patient EKG in the ER showing sinus rhythm with a heart rate of 119 and sinus tachycardia nonspecific changes observed but there is no ST elevation Patient uses 4 L nasal cannula at home and she is saturating well right now on 4 L She was provided with a breathing treatment before arrival and that was enough to raise her oxygen to 100% here in the ER in addition she was provided with Solu-Medrol 125 mg IV The patient shortness of breath is mostly secondary COPD exacerbation but also of fluid overload is suspected with CHF as well The patient have no recent history of any echo done The patient BNP is elevated and her sodium is 119 in addition to decreased chloride as well No acute kidney injury The patient CK is mildly elevated at 500 The patient still awaiting the CAT scan of the head as well as CT cervical spine and CT of the pelvis and the x-ray of her ankle and left knee also CT lumbar Lab Data Labs: Lab Results 11/30/24 Range/Units 18:10 WBC 10.8 (4.0-11.0) 10^3/uL RBC 3.33 L (4.20-5.40) 10^6/uL Hgb 11.3 L (12.0-16.0) g/dL Hct 31.3 L (36.0-48.0) % MCV 94.0 (81.0-99.0) fL MCH 33.9 (26.7-34.0) pg MCHC 36.1 H (29.9-35.2) g/dL RDW 14.3 (11.0-15.0) % Plt Count 249 (150-450) 10^3/uL MPV 10.4 (9.5-13.5) fL Neut % (Auto) 80.0 H (43.0-75.0) % Lymph % (Auto) 10.3 L (20.5-60.0) % Love % (Auto) 8.9 (1.7-12.0) % Eos % (Auto) 0.1 L (0.9-7.0) % Baso % (Auto) 0.1 L (0.2-2.0) % Neut # (Auto) 8.6 H (1.4-6.5) 10^3/uL Lymph # (Auto) 1.1 L (1.2-3.8) 10^3/uL Love # (Auto) 1.0 H (0.3-0.8) 10^3/uL Eos # (Auto) 0.0 (0.0-0.7) 10^3/uL Baso # (Auto) 0.0 (0.0-0.1) 10^3/uL Abs Immat Gran (auto) 0.06 H (0.00-0.03) 10^3/uL Imm/Tot Granulo (auto) 0.6 H (0.0-0.5) % PT 10.3 (9.0-11.6) sec INR 0.97 Sodium 119 L* (136-145) mmol/L Potassium 3.7 (3.5-5.1) mmol/L Chloride 83 L* (98-107) mmol/L Carbon Dioxide 22.8 (21.0-32.0) mmol/L Anion Gap 16.9 BUN 10.0 (7.0-18.0) mg/dL Creatinine 0.85 (0.55-1.02) mg/dL Est GFR ( Amer) >60 (>=60 mL/min/1.73m^2) Est GFR (Non-Af Amer) >60 (>=60 mL/min/1.73m^2) BUN/Creatinine Ratio 11.8 Glucose 142 H (74-106) mg/dL Calcium 8.7 (8.5-10.1) mg/dL Total Bilirubin 2.7 H (0.2-1.0) mg/dL AST 90 H (15-37) U/L ALT 35 (14-59) U/L Alkaline Phosphatase 285 H (46-116) U/L Total Creatine Kinase 565 H* (26-192) U/L Troponin I High Sens 12.4 (4.0-51.3) pg/mL NT-Pro-B Natriuret Pep 1858.0 H* (<=900.0) pg/mL Total Protein 6.3 L (6.4-8.2) g/dL Albumin 1.9 L (3.4-5.0) g/dL Globulin 4.4 g/dL Albumin/Globulin Ratio 0.4 Discharge Plan Discharge Patient Disposition: Still a Patient
[2024-11-30 18:19] LABS: Hematocrit 31.3 % (36.0-48.0); Hemoglobin 11.3 g/dL (12.0-16.0); Immature Granulocytes Abs Auto 0.06 10^3/uL (0.00-0.03); Immature Granulocytes Pct Auto 0.6 % (0.0-0.5); Lymphocytes Absolute Auto 1.1 10^3/uL (1.2-3.8); Mean Corpuscular HGB Conc 36.1 g/dL (29.9-35.2); Mean Corpuscular Hemoglobin 33.9 pg (26.7-34.0); Mean Corpuscular Volume 94.0 fL (81.0-99.0); Platelet Count 249 10^3/uL (150-450); Red Blood Count 3.33 10^6/uL (4.20-5.40); White Blood Count 10.8 10^3/uL (4.0-11.0)
--- NOTE | 2024-11-30 18:28 | CT_ITS ---
The [address] [address] Patient Name: RSAHID BOOTH MRN: [id number] date: 1970 Sex: F Assigned Patient Location: ER Current Patient Location: ER Accession/Order Number: [id number] Exam Date: 11/30/2024 19:22 Report Date: 11/30/2024 19:24 At the request of: NESSA SILVER MD Procedure: CT pelvis wo con CT PELVIS WITHOUT CONTRAST: CLINICAL HISTORY: FALL COMPARISON: None TECHNIQUE: Contiguous axial unenhanced images were obtained through the of the pelvis . This CT exam was performed using one or more following dose reduction techniques: Automated exposure control, adjustment of the mA and/or kV according to patient size, or use of iterative reconstruction technique. FINDINGS: No fracture or dislocation. Postsurgical changes lower lumbar spine. Degenerative changes both hips.. No diastases of sacral joints or the pubic symphysis. Mild bladder distention. Uterus absent. Moderate stool rectosigmoid junction. CT/CT pelvis wo con IMPRESSION: Negative acute fracture malalignment. Impression dictated by: Eduard Crawley M.D. 11/30/2024 7:24 PM Dictation Location: [place] [address] Electronically authenticated by: [id number] Y Date: 11/30/2024 19:24
--- NOTE | 2024-11-30 18:28 | CT_ITS ---
The [address] [address] Patient Name: RASHID BOOTH MRN: [id number] date: 1970 Sex: F Assigned Patient Location: ED.MAIN Current Patient Location: Accession/Order Number: [id number] Exam Date: 11/30/2024 19:16 Report Date: 11/30/2024 19:19 At the request of: NESSA SILVER MD Procedure: CT cervical spine wo con CT CERVICAL SPINE WITHOUT CONTRAST: CLINICAL HISTORY: FALL COMPARISON: 12/28/2023 TECHNIQUE: Contiguous axial unenhanced images were obtained through the cervical spine. This CT exam was performed using one or more following dose reduction techniques: Automated exposure control, adjustment of the mA and/or kV according to patient size, or use of iterative reconstruction technique. Findings: Straightening normal cervical lordosis. Overall [id number] multilevel degenerative changes identified moderate to severe intervertebral space narrowing C5-C7.. No prevertebral soft tissue. Chronic changes lung apices. CT/CT cervical spine wo con IMPRESSION: Multilevel degenerative change. Negative acute fracture malalignment. Impression dictated by: Eduard Crawley M.D. 11/30/2024 7:19 PM Dictation Location: [place] [address] Electronically authenticated by: [id number] Y Date: 11/30/2024 19:19
--- NOTE | 2024-11-30 18:28 | CT_ITS ---
The [address] [address] Patient Name: RASHID BOOTH MRN: [id number] date: 1970 Sex: F Assigned Patient Location: ED.MAIN Current Patient Location: Accession/Order Number: [id number] Exam Date: 11/30/2024 19:07 Report Date: 11/30/2024 19:09 At the request of: NESSA SILVER MD Procedure: CT head/brain wo con CT BRAIN WITHOUT CONTRAST: CLINICAL HISTORY: FALL COMPARISON: 12/28/2023 TECHNIQUE: Contiguous axial unenhanced images were obtained through the brain. This CT exam was performed using one or more following dose reduction techniques: Automated exposure control, adjustment of the mA and/or kV according to patient size, or use of iterative reconstruction technique. FINDINGS: There is no evidence of midline shift, intra or extra-axial fluid collection, hemorrhage or CT evidence of acute large vascular disease stroke. Central involutional changes and chronic small vessel ischemic disease. Visualized intraorbital contents appear unremarkable. Left maxillary sinus mucous degenerative cyst versus polypoid changes. Suta-xh-ugfmntrw ethmoid sinus mucosal thickening. The surrounding soft tissues are normal. CT/CT head/brain wo con IMPRESSION: NO ACUTE INTRACRANIAL ABNORMALITY. Impression dictated by: Eduard Crawley M.D. 11/30/2024 7:09 PM Dictation Location: [place] [address] Electronically authenticated by: [id number] Y Date: 11/30/2024 19:09
--- NOTE | 2024-11-30 18:28 | CT_ITS ---
The [address] [address] Patient Name: RASHID BOOTH MRN: [id number] date: 1970 Sex: F Assigned Patient Location: ED.MAIN Current Patient Location: Accession/Order Number: [id number] Exam Date: 11/30/2024 19:19 Report Date: 11/30/2024 19:22 At the request of: NESSA SILVER MD Procedure: CT lumbar spine wo con CT LUMBAR SPINE WITHOUT CONTRAST: CLINICAL HISTORY: FALL COMPARISON: None TECHNIQUE: Contiguous axial unenhanced images were obtained through the lumbar spine. This CT exam was performed using one or more following dose reduction techniques: Automated exposure control, adjustment of the mA and/or kV according to patient size, or use of iterative reconstruction technique. Findings: Postsurgical changes L4-L5 status post posterior fusion and laminectomy. Hardware is intact. Hsiz-tn-sxdarwzp intervertebral space narrowing L5-S1. Endplate osteophytosis causing moderate foraminal narrowing at L5-S1. Minimal foraminal narrowing L4-5 and mild to moderate foraminal narrowing at L3-L4 due to junctional degenerative change. Otherwise no fracture or malalignment. Left renal calculi nonobstructive. CT/CT lumbar spine wo con IMPRESSION: Kvet-cz-tqmqlxjy degenerative change. Negative acute fracture malalignment. Impression dictated by: Eduard Crawley M.D. 11/30/2024 7:22 PM Dictation Location: [place] [address] Electronically authenticated by: [id number] Y Date: 11/30/2024 19:22
[2024-11-30 18:30] LABS: INR 0.97; Prothrombin Time 10.3 sec (9.0-11.6)
[2024-11-30 18:38] LABS: Alanine Aminotransferase 35 U/L (14-59); Albumin Globulin Ratio 0.4; Albumin Level 1.9 g/dL (3.4-5.0); Alkaline Phosphatase 285 U/L (46-116); Anion Gap 16.9; Aspartate Amino Transferase 90 U/L (15-37); Blood Urea Nitrogen 10.0 mg/dL (7.0-18.0); Calcium 8.7 mg/dL (8.5-10.1); Carbon Dioxide 22.8 mmol/L (21.0-32.0); Estimated GFR (African America >60 (>=60 mL/min/1.73m^2); Estimated GFR (Non-African Ame >60 (>=60 mL/min/1.73m^2); Globulin 4.4 g/dL; Glucose 142 mg/dL (74-106); Potassium 3.7 mmol/L (3.5-5.1); Total Protein 6.3 g/dL (6.4-8.2)
[2024-11-30 18:41] LABS: Chloride 83 mmol/L (98-107); Creatine Kinase 565 U/L (26-192); NT Pro B Type Natriuretic Pept 1858.0 pg/mL (<=900.0); Sodium 119 mmol/L (136-145)
--- NOTE | 2024-11-30 18:55 | XR_ITS ---
The [address] [address] Patient Name: RASHID BOOTH MRN: [id number] date: 1970 Sex: F Assigned Patient Location: ER Current Patient Location: ER Accession/Order Number: [id number] Exam Date: 11/30/2024 18:59 Report Date: 11/30/2024 19:00 At the request of: NESSA SILVER MD Procedure: XR chest 1V Single view chest: CLINICAL HISTORY: SOB COMPARISON: 04/01/2024 FINDINGS: UNREMARKABLE cardiac silhouette. Lungs clear. No pneumothorax. Postsurgical changes quadrant with multiple surgical clips. XR/XR chest 1V IMPRESSION: Negative acute pleural-parenchymal disease. Impression dictated by: Eduard Crawley M.D. 11/30/2024 7:00 PM Dictation Location: [place] [address] Electronically authenticated by: [id number] Y Date: 11/30/2024 19:00
--- NOTE | 2024-11-30 18:55 | XR_ITS ---
The [address] [address] Patient Name: RASHID BOOTH MRN: [id number] date: 1970 Sex: F Assigned Patient Location: ER Current Patient Location: ER Accession/Order Number: [id number] Exam Date: 11/30/2024 19:01 Report Date: 11/30/2024 19:05 At the request of: NESSA SILVER MD Procedure: XR ankle RT min 3V Right ankle, 3 views INDICATION: Fall COMPARISON: 06/01/2024 FINDINGS: Osteopenia. There is soft tissue swelling identified greatest on the lateral malleolus. There is a cortical avulsion fracture arising from the lateral malleolus noted. There is cortical irregularities involving the plantar aspect calcaneus which appears be new from prior examination. Heterotopic bone posterior to the calcaneus noted possibly related to remote osseous injury or Achilles injury. Please correlate with point tenderness. There is slight widening of the navicular cuneiform cuneiform joints of uncertain clinical significance. XR/XR ankle RT min 3V IMPRESSION: Lateral malleolar fracture with cortical avulsion. Questionable fracture lucencies involving the plantar aspect of the calcaneus. Widening of the navicular cuneiform joint of uncertain significance Impression dictated by: Eduard Crawley M.D. 11/30/2024 7:05 PM Dictation Location: [place] [address] Electronically authenticated by: [id number] Y Date: 11/30/2024 19:05
--- NOTE | 2024-11-30 18:55 | XR_ITS ---
The [address] [address] Patient Name: RASHID BOOTH MRN: [id number] date: 1970 Sex: F Assigned Patient Location: ER Current Patient Location: ER Accession/Order Number: [id number] Exam Date: 11/30/2024 19:06 Report Date: 11/30/2024 19:06 At the request of: NESSA SILVER MD Procedure: XR knee LT 3V 3 views left knee INDICATION: Fall COMPARISON: None FINDINGS: Mild degenerative changes involving all 3 compartments. Diffuse osteopenia. Trace effusion. No acute fracture or dislocation identified. XR/XR knee LT 3V IMPRESSION: Trace effusion. Mild degenerative change. Negative acute osseous abnormality. Impression dictated by: Eduard Crawley M.D. 11/30/2024 7:06 PM Dictation Location: [place] [address] Electronically authenticated by: [id number] Y Date: 11/30/2024 19:06
--- NOTE | 2024-11-30 18:55 | XR_ITS ---
The [address] [address] Patient Name: RASHID BOOTH MRN: [id number] date: 1970 Sex: F Assigned Patient Location: ER Current Patient Location: ER Accession/Order Number: [id number] Exam Date: 11/30/2024 18:56 Report Date: 11/30/2024 18:59 At the request of: NESSA SILVER MD Procedure: XR foot RT min 3V RIGHT FOOT - 3 views CLINICAL HISTORY: FALL COMPARISON: None FINDINGS: Negative acute osseous abnormality. Minimal degenerative change involving the midfoot. Presumed heterotopic bone formation posterior to the calcaneus. Diffuse osteopenia. XR/XR foot RT min 3V IMPRESSION: Osteopenia. No definite fracture. Mild degenerative changes. Impression dictated by: Eduard Crawley M.D. 11/30/2024 6:59 PM Dictation Location: [place] [address] Electronically authenticated by: [id number] Y Date: 11/30/2024 18:59
[2024-11-30 19:46] LABS: ABG PCO2 27.4 mmHg (35.0-45.0); HCO3 ABG 22.1 mmol/L (22.0-26.0); PO2 ABG 89.4 mmHg (80.0-100.0)
[2024-11-30 19:47] LABS: Allen Test POSITIVE (POSITIVE); Liters per Minute 3.5; O2 Mode N/C; Oxygen Saturation ABG 97.9 %; Puncture Site L RAD
[2024-11-30] MEDS: IPRATROPIUM/ALBUTEROL SULFATE 3 ML AMPUL.NEB IH (19:50)
[2024-11-30] MEDS: HYDROMORPHONE HCL 1 MG/ML CARTRIDGE IV (19:52)
[2024-11-30] MEDS: 0.9 % SODIUM CHLORIDE 1,000 ML 1000 ML IV (19:52)
[2024-11-30 20:28] LABS: Glucose Urine UA NEGATIVE (NEGATIVE)
[2024-11-30] MEDS: 0.9 % SODIUM CHLORIDE 1,000 ML 75 ML IV (22:24)
[2024-11-30] MEDS: ONDANSETRON 4 MG RAPDIS TABLET SL (22:25)
[2024-11-30] MEDS: ACETAMINOPHEN 325 MG TABLET 650 MG PO (22:25)
[2024-11-30] MEDS: HYDROCORTISONE SODIUM SUCC PF 100 MG/2 ML VIAL IVP (22:25)
[2024-12-01] VITALS (21 sets, daily range): BP systolic 94–115; BP diastolic 63–95; PULSE 101–118; TEMP 36.6–36.8; O2SAT 93–99
[2024-12-01] MEDS: HYDROMORPHONE HCL 0.5 MG/0.5 ML SYRINGE IV ×3 (00:33→14:34)
[2024-12-01 05:49] LABS: Hematocrit 29.1 % (36.0-48.0); Hemoglobin 10.3 g/dL (12.0-16.0); Mean Corpuscular HGB Conc 35.4 g/dL (29.9-35.2); Mean Corpuscular Hemoglobin 33.3 pg (26.7-34.0); Mean Corpuscular Volume 94.2 fL (81.0-99.0); Platelet Count 244 10^3/uL (150-450); Red Blood Count 3.09 10^6/uL (4.20-5.40); White Blood Count 10.6 10^3/uL (4.0-11.0)
[2024-12-01 06:19] LABS: Alanine Aminotransferase 32 U/L (14-59); Albumin Level 1.8 g/dL (3.4-5.0); Alkaline Phosphatase 250 U/L (46-116); Anion Gap 15.4; Aspartate Amino Transferase 80 U/L (15-37); Blood Urea Nitrogen 14.0 mg/dL (7.0-18.0); Calcium 8.5 mg/dL (8.5-10.1); Carbon Dioxide 25.3 mmol/L (21.0-32.0); Chloride 88 mmol/L (98-107); Creatine Kinase 316 U/L (26-192); Estimated GFR (African America >60 (>=60 mL/min/1.73m^2); Estimated GFR (Non-African Ame 55 (>=60 mL/min/1.73m^2); Globulin 4.0 g/dL; Glucose 128 mg/dL (74-106); Potassium 3.7 mmol/L (3.5-5.1); Sodium 125 mmol/L (136-145); Thyroid Stimulating Hormone 3.464 uIU/mL (0.358-3.740); Total Protein 5.8 g/dL (6.4-8.2)
[2024-12-01 06:20] LABS: Albumin Globulin Ratio 0.5
[2024-12-01 06:21] LABS: Magnesium 1.9 mg/dL (1.8-2.4)
--- NOTE | 2024-12-01 07:00 | US_ITS ---
The [address] [address] Patient Name: RASHID BOOTH MRN: [id number] date: 1970 Sex: F Assigned Patient Location: MS Current Patient Location: MS Accession/Order Number: [id number] Exam Date: 12/01/2024 08:35 Report Date: 12/01/2024 08:40 At the request of: JARROD MUÑOZ MD Procedure: US right upper quadrant LIMITED RIGHT UPPER QUADRANT ABDOMINAL ULTRASOUND CLINICAL HISTORY: Elevated bilirubin right upper quadrant pain with nausea and vomiting. COMPARISON: 12/29/2023 Evaluation is limited by body habitus, bowel gas and inability to move or suspected respiration. The gallbladder is physiologically distended. No obvious shadowing calculi, wall thickening or pericholecystic fluid are seen. No intra- or extrahepatic biliary dilatation is evident. The common duct measures 2-3 mm. The liver parenchyma is echogenic suggesting the possibility of fatty infiltration. No focal intrahepatic masses were imaged. The pancreas is not adequately seen for assessment. Cursory evaluation of the right kidney reveals no hydronephrosis or fluid within Galan's pouch. US/US right upper quadrant IMPRESSION: LIMITED STUDY. POSSIBLE FATTY LIVER. NO OBVIOUS GALLBLADDER PATHOLOGY. Impression dictated by: Saumya Tapia M.D. 12/01/2024 8:40 AM Dictation Location: [place] [address] Electronically authenticated by: [id number] Y Date: 12/01/2024 08:40
--- NOTE | 2024-12-01 08:00 | ECG_ITS ---
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
[2024-12-01] MEDS: IPRATROPIUM/ALBUTEROL SULFATE 3 ML AMPUL.NEB IH ×3 (09:29→21:12)
--- NOTE | 2024-12-01 09:30 | RESP.RT ---
titrated O2 from 3.5 LPM to 2 LPM NC
--- NOTE | 2024-12-01 09:36 | P.HP_ITS ---
HPI H&P: HPI History of Present Illness Chief complaint: Weakness,hyponatremia, dysnea, copd Narrative: Mrs. Frazier is a 54-year-old female who came into the emergency room with progressive weakness, confusion, disorientation. She was found to have low sodium level at 119. She reported having pain in her neck and was found to have probable ankle fracture. Patient reported having chronic pain in her back for which she is on oxycodone, Lyrica. Patient is also on amitriptyline and Zoloft for depression. Patient reports having abdominal pain. No fever or chills. No hematemesis or melena Opioid HPI Opioid Management Most Recent Pain and Opioid Data: Last Pain Scale 5 Today, 09:08 Last Pain Assessment 11/30/24, 22:10 Last MAR Pain Assessment 11/30/24, 19:52 Last ORT Total Score 0 11/30/24, 21:41 Last ORT Risk Category Low Risk 11/30/24, 21:41 Review of Systems ROS Status of ROS 10 or more systems reviewed and unremark able except as noted in history and below [facility] Medical History (Updated 12/01/24 @ 09:41 by Jackson Mondragon MD) HTN (hypertension) ?I10 - Essential (primary) hypertension (ICD-10) Thickening of wall of gallbladder ?K82.8 - Other specified diseases of gallbladder (ICD-10) Syncope ?R55 - Syncope and collapse (ICD-10) Peripheral neuropathy ?G62.9 - Polyneuropathy, unspecified (ICD-10) Chronic bilateral back pain ?M54.9 - Dorsalgia, unspecified (ICD-10) ?G89.29 - Other chronic pain (ICD-10) Afib ?I48.91 - Unspecified atrial fibrillation (ICD-10) Aortic aneurysm ?I71.9 - Aortic aneurysm of unspecified site, without rupture (ICD-10) GI bleed ?K92.2 - Gastrointestinal hemorrhage, unspecified (ICD-10) Surgical History Previous back surgery ?Z98.890 - Other specified postprocedural states (ICD-10) Status post abdominoplasty ?Z98.890 - Other specified postprocedural states (ICD-10) Status post abdominoplasty ?Z98.890 - Other specified postprocedural states (ICD-10) H/O hysterectomy with oophorectomy H/O: hysterectomy ?Z90.710 - Acquired absence of both cervix and uterus (ICD-10) Gastric bypass status for obesity ?Z98.84 - Bariatric surgery status (ICD-10) Family History Mother Family history of cancer Family history of hypertension Social History (Updated 11/30/24 @ 21:55 by Kat Escobedo RN) Within the past year, how often did you have a drink containing alcohol: 2-4 times a month Within the past year, how often did you have six or more drinks on one occasion: never Smoking status: Former smoker Non-prescribed substance use: denies use Previous occupational history: disabled Known occupational exposures/hazards: No Highest level of school completed/degree received: Bachelor's degree Are you now , , , , never or living with a partner: In a typical week, how many times do you talk on the telephone with family, friends, or neighbors: 3 or more times per week Little interest or pleasure in doing things: more than half the days Feeling down, depressed, or hopeless: several days Feel stressed/tense/nervous/anxious/difficulty sleeping: rather much Life stressor details: medical condition Meds Home Medications and Allergies Home Medications ?Medication ?Instructions ?Recorded ?Confirmed ?Type pregabalin 200 mg capsule 200 mg PO TID 09/03/2311/30 History sertraline 100 mg tablet 200 mg PO DAILY 09/03/2301/17 History amitriptyline 75 mg tablet 75 mg PO .qhs 12/28/2301/17 History alprazolam 0.5 mg tablet 0.5 mg PO QID PRN anxiety 12/01/24 History oxycodone 20 mg tablet 20 mg PO Q4H PRN pain 11/30/24 History metoprolol succinate 50 mg 50 mg PO .QD 11/30/2412/01 History tablet,extended release 24 hr Allergies Allergy/AdvReac Type Severity Reaction Status Date / Time NSAIDS (Non-Steroidal AdvReac Intermediate Gastrointestinal Verified 11/30/24 18:03 Anti-Inflamma Upset Exam Narrative Exam Narrative: [pt is awake and alert. oriented to place, time and person, central obesity HEENT: [place] conjunctiva and NL buccal mucosa Neck: Supple, no tenderness Endocrine: No Thyromegaly. Vascular: No JVD or carotid bruit. Lymphatic: No cervical lymphadenopathy. Chest: CTA no DTP. Heart RRR, no extra sound or murmur. Abd: Soft, tenderness in all abdominal region. Mild guarding, no rebound, no rigidity. Neuro: Patient is awake but not fully alert. Able to answer questions and hold simple conversation which is improvement compared to what emergency room and nursing staff described having being confused and disoriented. Patient is able to follow simple commands. Symmetrical motor and tone. Tenderness at the right ankle. []] Constitutional Vital Signs, click to edit/add: Last Vital Signs Temp 98.1 F 12/01/24 07:18 Pulse 101 H 12/01/24 09:30 Resp 20 12/01/24 07:18 BP 115/69 12/01/24 07:18 Pulse Ox 99 12/01/24 09:30 O2 Del Method Nasal Cannula 12/01/24 09:30 O2 Flow Rate 3.5 12/01/24 09:30 Results Labs Labs: Short CBC 11/30/24 12/01/24 Range/Units 18:10 05:34 WBC 10.8 10.6 (4.0-11.0) 10^3/uL Hgb 11.3 L 10.3 L (12.0-16.0) g/dL Hct 31.3 L 29.1 L (36.0-48.0) % Plt Count 249 244 (150-450) 10^3/uL BMP 11/30/24 12/01/24 18:10 05:34 Sodium 119 L* 125 L Potassium 3.7 3.7 Chloride 83 L* 88 L Carbon Dioxide 22.8 25.3 BUN 10.0 14.0 Creatinine 0.85 1.03 H Glucose 142 H 128 H Calcium 8.7 8.5 Cardiac Enzymes 11/30/24 12/01/24 Range/Units 18:10 05:34 Total Creatine Kinase 565 H* 316 H (26-192) U/L Liver Function 11/30/24 12/01/24 Range/Units 18:10 05:34 Total Bilirubin 2.7 H 2.0 H (0.2-1.0) mg/dL AST 90 H 80 H (15-37) U/L ALT 35 32 (14-59) U/L Alkaline Phosphatase 285 H 250 H (46-116) U/L Albumin 1.9 L 1.8 L (3.4-5.0) g/dL Urine 11/30/24 Range/Units 20:10 Urine Color Dk. orange (YELLOW) Urine Clarity Clear (CLEAR) Urine pH 5.5 (5.0-9.0) Ur Specific [place] 1.015 (1.005-1.025) Urine Protein Negative (NEG/TRACE) mg/dL Urine Glucose (UA) Negative (NEGATIVE) mg/dL ABG ABG results: 11/30/24 19:15 ABG pH 7.514 H* ABG pCO2 27.4 L ABG pO2 89.4 ABG HCO3 22.1 ABG O2 Saturation 97.9 ABG Base Excess -0.9 Assessment and Plan Assessment and Plan (1) Encephalopathy: (2) Polypharmacy: (3) Ankle fracture, right: (4) Elevated LFTs: (5) Fall: (6) COPD (chronic obstructive pulmonary disease): (7) Chronic hypoxic respiratory failure: (8) Acute hyponatremia: (9) Hypovolemia: (10) Volume depletion: Plan Severe hyponatremia. Patient has low chloride level and low blood pressure suggestive of hypovolemic hyponatremia. Requested serum and urine osmolality to exclude the possibility of SIADH and/or polydipsia. Requested TSH and cortisol level to rule out hypothyroidism and adrenal insufficiency as a cause of her hyponatremia Continue gentle normal saline infusion until her volume status is repleted then discontinue normal saline. Fluid restriction. Monitor sodium level every 8 hours and the goal is not to correct her sodium level for more than 8 mEq in 24 hours. Right ankle fracture is suspected Requested a podiatry consultation. Requested vitamin D level rule out vitamin D deficiency and/or osteoporosis As needed pain medication Elevated bilirubin Unknown etiology. Requested ultrasound which came back negative for acute gallbladder disease Ultrasound is positive for fatty liver which is unlikely to cause S[place] hyperbilirubinemia Patient may have a cholestasis picture Polypharmacy Patient is on Lyrica, amitriptyline, alprazolam, oxycodone 20 mg every 4 hours and sertraline. Patient is at risk having drug side effect and oral drug?drug interaction I recommend her regimen to be simplified to reduce her risk. This would need to be completed primarily by PCP and/or psychiatrist Acute encephalopathy, confusion, disorientation CT head does not show any acute intracranial process. Encephalopathy is improved Likely caused by metabolic encephalopathy secondary to severe hyponatremia, volume depletion and polypharmacy as listed above. No focal neurological deficit. No strong indication to proceed with MRI imaging of the brain at this time. Anemia, no evidence of acute blood loss. Patient will likely require to have anemia workup to be done in the outpatient setting to be handled by PCP in collaboration with other needed outpatient providers. This may include but not limited to EGD, colonoscopy, referral to see hematology and other needed age-appropriate cancer screening. COPD with chronic hypoxic respiratory failure. The patient is on 4 L at home. Patient does not smoke anymore but reported the previous history of smoking. Unknown whether patient had PFTs in the past. Unknown whwthwr patient has other possible etiologies for her chronic hypoxic respiratory failure. Patient would need to follow-up with her PCP and/or pulmonology. Elevated BNP. No clinical evidence of fluid overload. Requested echocardiogram to exclude cardiomyopathy or significant valvular disease. Chronic medical conditions not listed above, incidental findings seen on labs and imaging. These would need to be addressed. Could be addressed when time and condition are appropriate. Could be addressed in the outpatient setting by PCP collaboration with other needed outpatient providers. Patient status is dynamic and evolutionary therefore the aforementioned assessment and plan may or may not be complete or conclusive. The patient would likely require to have additional workup, investigation and the consultation but will be determined based on the clinical progression and follow-up test result Urinary Catheter Management Urinary Catheter Management Urethral: Cath placed during this visit: yes Urethral indwelling: No Insertion date: 11/30/24 Insertion time: 19:02
--- NOTE | 2024-12-01 09:52 | CT_ITS ---
The [address] [address] Patient Name: RASHID BOOTH MRN: [id number] date: 1970 Sex: F Assigned Patient Location: MS Current Patient Location: MS Accession/Order Number: [id number] Exam Date: 12/01/2024 15:56 Report Date: 12/01/2024 16:04 At the request of: JARROD MUÑOZ MD Procedure: CT abdomen pelvis w con CT Abdomen and Pelvis withcontrast TECHNIQUE: Axial imaging with 2-D reconstruction.100 cc of Omnipaque 300. The CT exam was performed using one or more the following dose reduction techniques: Automated exposure control, adjustment of the MA and/or Kv according to patient size, or use of the iterative reconstruction technique. COMPARISON: 12/28/2023 History: Diffuse abdominal pain and tenderness LIMITATIONS: None LOWER THORAX Unremarkable LIVER: Hepatic steatosis GALLBLADDER: 1 cm gallbladder polyp versus stone. Gallbladder distention. BILE DUCTS: Similar common bile duct prominence. Mild central intrahepatic biliary ductal dilatation. SPLEEN: Unremarkable PANCREAS: Atrophic changes ADRENAL GLANDS: Normal right adrenal gland. Stable 14 mm left adrenal nodule. KIDNEYS:A lobular renal contour. No obstructive uropathy. AORTA: No abdominal aortic aneurysm identified. Atherosclerosis RETROPERITONEUM: No significant retroperitoneal abnormalities identified. MESENTERY:Unremarkable STOMACH:The gastric bypass changes. SMALL BOWEL: The small bowel loops are nondistended. APPENDIX: The appendix is normal. COLON: Large sigmoid diverticulum redemonstrated. Redundancy of colon. Gaseous distention of the colon. Cecal diameter is 6 cm. Large amount stool in the rectum. May consider impaction. URINARY BLADDER: Elaine catheter and nondistended urinary bladder. REPRODUCTIVE SYSTEM: The uterus is absent. PNEUMOPERITONEUM: None PERITONEAL FLUID:None BONY STRUCTURES: Stable T11 compression deformity. Similar scoliosis. Degenerative change. Lower lumbar fixation hardware intact. ABDOMINAL WALL: Anasarca CT/CT abdomen pelvis w con IMPRESSION: Interval moderate gaseous distention of the colon. Findings suggesting rectal fecal impaction. Nondistended small bowel. Hepatic steatosis. Similar gallbladder distention and suspected polyp versus stone. Impression dictated by: Jayjay Green M.D. 12/01/2024 4:04 PM Dictation Location: [employer] Electronically authenticated by: [id number] Y Date: 12/01/2024 16:04
[2024-12-01] MEDS: SERTRALINE HCL 100 MG TABLET 200 MG PO (10:06)
[2024-12-01 10:20] LABS: Magnesium 1.8 mg/dL (1.8-2.4)
[2024-12-01] MEDS: 0.9 % SODIUM CHLORIDE 1,000 ML 75 ML IV (10:34)
--- NOTE | 2024-12-01 10:37 | SWNOTE1 ---
SW met with pt to discuss any dc needs. Pt was alert and oriented to person, date of , and knew she was at a hospital. Pt lives at home with her . She voiced they do the best they can do at home. She does use a walker at home and voice dshe does use home oxygen. She thinks company is [employer] and thinks she uses 4 liters. SW to call and check. Pt did become drowsy during conversation and did mumble at times. SW asked about services coming in to the home. She thought she had some therapy coming in, but has not felt well so has not kept up on the therapy coming. SW did ask if it was home health and the company. Pt was not sure. SW did ask permission to call her , pt in agreement. At this time no further questions/concerns. SW to follow as needed. CEDRICK called pt's and left voicemail, waiting for call back.
--- NOTE | 2024-12-01 10:55 | SWNOTE1 ---
SW called [employer] and pt does get her home oxygen from them. The prescription was from Dr. Kymberly Gilmore on 01/20/24 and it was for 2 liters continuous. SW updated case management and nurse.
--- NOTE | 2024-12-01 11:57 | SWNOTE1 ---
CEDRICK received a call back from pt's . CEDRICK asked about HH? Pt's voiced that she has had in past, but is not current with anyone at this time. He stated he works FRI-Fri, sometimes Friday, and he works 8-10 hour shifts. He state he takes care of getting her around in morning and then she usually does well taking care of herself while he is at work. Normally she is able to use her rollator and get around to the bathroom and to let the dogs in and out. He stated the last few days she has not been feeling well. He stated that she has not been eating as much as she normally does. He did also state he was not sure if she took too much of her medication at home or not enough. SW did let him know that her sodium levels were off, he voiced he was aware of this. He stated this has happened in the past as well. He did ask SW about pedialyte and if it was good source of sodium. CEDRICK advised that SW was not sure and will have to address with nurse or the physician. CEDRICK did ask pt's if he was planning on coming to hospital today. He stated he gets off work at 3:00 and then has to stop at home. He plans on getting here around 4:00/4:30. CEDRICK advised that SW will reach out to physician to see if he can stop in and speak to him once he arrives. Pt's voiced he would appreciate that. CEDRICK messaged physician and he advised to have someone reach out to him once arrives. CEDRICK notified pt's nurse.
[2024-12-01] MEDS: 0.9 % SODIUM CHLORIDE 500 ML IV (12:10)
--- NOTE | 2024-12-01 13:24 | PM.CN ---
Consult Note: [facility] Data of Consult Consult date: 12/01/24 Requesting Physician: Jackson Mondragon MD Primary Care Provider: Kymberly Gilmore MD Consult Narrative Reason for consult: right ankle & calcaneal avulsion fx Narrative: Patient is a 54-year-old female with multiple medical comorbidities who presented to the emergency department yesterday by EMS for COPD exacerbation. She reportedly had a ground-level fall within the last 2 days and has been able to walk with difficulty due to right lateral ankle pain with use of a walker. She and her family members at bedside relate that much of her difficulty walking is secondary to generalized weakness and fatigue. X-rays in the emergency department demonstrated acute cortical avulsion fracture of the lateral malleolus as well as subacute calcaneal avulsion fracture. I treated her roughly 7 months ago for contralateral calcaneal avulsion fracture and at that time she did not have a fracture of her right calcaneus. At bedside she relates to right ankle pain but denies calf pain. She relates that she is able to move the ankle despite the tenderness. She does not recall being out of bed since being admitted. She relates to chronic numbness/tingling in bilateral feet which is chronic in nature. She relates to bilateral foot swelling which was present prior to the fall and what her family notes started after back surgery which was in May 2024. She has no other foot or ankle complaints cc:: CC: Jackson Mondragon MD Review of Systems ROS Status of ROS 10 or more systems reviewed and unremarkable except as noted in history and below Constitutional Reports: fatigue Respiratory Reports: shortness of breath [facility] Medical History (Updated 12/01/24 @ 17:18 by Black Weeks DPM) HTN (hypertension) ?I10 - Essential (primary) hypertension (ICD-10) Thickening of wall of gallbladder ?K82.8 - Other specified diseases of gallbladder (ICD-10) Syncope ?R55 - Syncope and collapse (ICD-10) Peripheral neuropathy ?G62.9 - Polyneuropathy, unspecified (ICD-10) Chronic bilateral back pain ?M54.9 - Dorsalgia, unspecified (ICD-10) ?G89.29 - Other chronic pain (ICD-10) Afib ?I48.91 - Unspecified atrial fibrillation (ICD-10) Aortic aneurysm ?I71.9 - Aortic aneurysm of unspecified site, without rupture (ICD-10) GI bleed ?K92.2 - Gastrointestinal hemorrhage, unspecified (ICD-10) Surgical History Previous back surgery ?Z98.890 - Other specified postprocedural states (ICD-10) Status post abdominoplasty ?Z98.890 - Other specified postprocedural states (ICD-10) Status post abdominoplasty ?Z98.890 - Other specified postprocedural states (ICD-10) H/O hysterectomy with oophorectomy H/O: hysterectomy ?Z90.710 - Acquired absence of both cervix and uterus (ICD-10) Gastric bypass status for obesity ?Z98.84 - Bariatric surgery status (ICD-10) Family History Mother Family history of cancer Family history of hypertension Social History (Updated 11/30/24 @ 21:55 by Kat Escobedo RN) Within the past year, how often did you have a drink containing alcohol: 2-4 times a month Within the past year, how often did you have six or more drinks on one occasion: never Smoking status: Former smoker Non-prescribed substance use: denies use Previous occupational history: disabled Known occupational exposures/hazards: No Highest level of school completed/degree received: Bachelor's degree Are you now , , , , never or living with a partner: In a typical week, how many times do you talk on the telephone with family, friends, or neighbors: 3 or more times per week Little interest or pleasure in doing things: more than half the days Feeling down, depressed, or hopeless: several days Feel stressed/tense/nervous/anxious/difficulty sleeping: rather much Life stressor details: medical condition Meds Home Medications and Allergies Home Medications ?Medication ?Instructions ?Recorded ?Confirmed ?Type pregabalin 200 mg capsule 200 mg PO TID 09/03/23 11/30/24 History sertraline 100 mg tablet 200 mg PO DAILY 09/03/23 11/30/24 History amitriptyline 75 mg tablet 75 mg PO .qhs 12/28/23 11/30/24 History alprazolam 0.5 mg tablet 0.5 mg PO QID PRN anxiety 01/06/24 12/01/24 History oxycodone 20 mg tablet 20 mg PO Q4H PRN pain 01/06/24 11/30/24 History metoprolol succinate 50 mg 50 mg PO .QD 11/30/24 12/01/24 History tablet,extended release 24 hr Allergies Allergy/AdvReac Type Severity Reaction Status Date / Time NSAIDS (Non-Steroidal AdvReac Intermediate Gastrointestinal Verified 11/30/24 18:03 Anti-Inflamma Upset Exam Narrative Exam Narrative: Stirrup ankle brace and Akbar wrap on the right ankle were removed for inspection. Skin: All skin is intact with no skin tenting including over the lateral ankle and posterior heel. No preulcerative lesion or sign of infection Vascular: Dorsalis pedis pulse is palpable bilaterally although faint with nonpalpable posterior tibial pulse which may be secondary to swelling. Absent digital hair growth. Swelling and bruising noted to the right lateral ankle Neuro: Light touch sensation is intact dorsally and plantarly. No pain out of proportion Musculoskeletal: Foot and ankle are rectus with no significant hindfoot or ankle deformity. Patient is able to fire all muscle groups but muscle strength testing was deferred secondary to pain. Patient is able to actively plantarflex against mild resistance. Compartments are soft and compressible. There is no pain with active or passive range of motion of the toes Constitutional Vital Signs, click to edit/add: Last Vital Signs Temp 98.1 F 12/01/24 12:00 Pulse 117 H 12/01/24 12:00 Resp 20 12/01/24 12:00 BP 109/68 12/01/24 12:00 Pulse Ox 95 12/01/24 12:00 O2 Del Method Nasal Cannula 12/01/24 12:00 O2 Flow Rate 2 12/01/24 12:00 Results Labs Labs: Short CBC 11/30/24 12/01/24 Range/Units 18:10 05:34 WBC 10.8 10.6 (4.0-11.0) 10^3/uL Hgb 11.3 L 10.3 L (12.0-16.0) g/dL Hct 31.3 L 29.1 L (36.0-48.0) % Plt Count 249 244 (150-450) 10^3/uL BMP 11/30/24 12/01/24 18:10 05:34 Sodium 119 L* 125 L Potassium 3.7 3.7 Chloride 83 L* 88 L Carbon Dioxide 22.8 25.3 BUN 10.0 14.0 Creatinine 0.85 1.03 H Glucose 142 H 128 H Calcium 8.7 8.5 Cardiac Enzymes 11/30/24 12/01/24 Range/Units 18:10 05:34 Total Creatine Kinase 565 H* 316 H (26-192) U/L Liver Function 11/30/24 12/01/24 Range/Units 18:10 05:34 Total Bilirubin 2.7 H 2.0 H (0.2-1.0) mg/dL AST 90 H 80 H (15-37) U/L ALT 35 32 (14-59) U/L Alkaline Phosphatase 285 H 250 H (46-116) U/L Albumin 1.9 L 1.8 L (3.4-5.0) g/dL Urine 11/30/24 Range/Units 20:10 Urine Color Dk. orange (YELLOW) Urine Clarity Clear (CLEAR) Urine pH 5.5 (5.0-9.0) Ur Specific [place] 1.015 (1.005-1.025) Urine Protein Negative (NEG/TRACE) mg/dL Urine Glucose (UA) Negative (NEGATIVE) mg/dL ABG ABG results: 11/30/24 19:15 ABG pH 7.514 H* ABG pCO2 27.4 L ABG pO2 89.4 ABG HCO3 22.1 ABG O2 Saturation 97.9 ABG Base Excess -0.9 Assessment and Plan Assessment and Plan (1) Encephalopathy: (2) Polypharmacy: (3) Elevated LFTs: (4) Fall: (5) COPD (chronic obstructive pulmonary disease): (6) Chronic hypoxic respiratory failure: (7) Acute hyponatremia: (8) Hypovolemia: (9) Volume depletion: (10) Avulsion fracture of right ankle: Assessment and Plan: I reviewed her x-rays which were obtained in the emergency department which demonstrate a lateral cortical avulsion fracture of the fibular malleolus. No surgical intervention is required. Patient will likely have some degree of tenderness/pain, swelling and bruising for the weeks to come but may weight-bear as tolerated with the stirrup ankle brace. Qualifiers: Encounter type: initial encounter Fracture type: closed Qualified Code(s): S82.891A - Other fracture of right lower leg, initial encounter for closed fracture (11) Avulsion fracture of right calcaneus: Assessment and Plan: X-rays demonstrate Achilles avulsion fracture of the calcaneal tuberosity with dorsal displacement. I do not believe that this occurred during the patient's recent fall as there is evidence of bony healing. Patient had a very similar issue on her contralateral leg and recovered uneventfully without surgical intervention. Given there is no skin tenting it is likely the patient will not require surgery for this but will require follow-up to ensure her skin does not develop ulceration. Qualifiers: Encounter type: initial encounter Calcaneus location: tuberosity Fracture type: closed Fracture alignment: displaced Qualified Code(s): S92.031A - Displaced avulsion fracture of tuberosity of right calcaneus, initial encounter for closed fracture Plan Patient seen at bedside. Patient education was provided and all questions were answered to her and her family's satisfaction. No surgical intervention planned during this stay or in the weeks to come for her fractures. Weightbearing as tolerated in stirrup ankle brace Discussed case with nursing and given her painful neuropathy the Akbar wrap may be removed for comfort while sleeping if necessary. Much caution when applying the Akbar wrap that it is not too tight as to cause any wound/ulceration. May apply ice to the lateral ankle and keep the right ankle elevated is much as possible. Please call with any updates or changes otherwise I will sign off on this patient for now. Patient may follow-up in my office (located behind [facility] next to pain t) in 1 to 2 weeks from discharge [address] [address], [address] [facility] Office
[2024-12-01 14:11] LABS: Anion Gap 15.9; Blood Urea Nitrogen 16.0 mg/dL (7.0-18.0); Calcium 8.0 mg/dL (8.5-10.1); Carbon Dioxide 21.6 mmol/L (21.0-32.0); Chloride 89 mmol/L (98-107); Estimated GFR (African America >60 (>=60 mL/min/1.73m^2); Estimated GFR (Non-African Ame 57 (>=60 mL/min/1.73m^2); Glucose 114 mg/dL (74-106); Potassium 3.5 mmol/L (3.5-5.1)
[2024-12-01 14:37] LABS: Sodium 123 mmol/L (136-145)
[2024-12-01] MEDS: SODIUM CHLORIDE 1,000 MG TABLET 1000 MG PO ×2 (15:03→22:27)
--- NOTE | 2024-12-01 20:40 | CA_ITS ---
Patient Name: RASHID BOOTH MR#: [id number] : 1970 Exam Date: 12/01/2024 Ordering Doctor: JARROD MUÑOZ ECHOCARDIOGRAM REPORT PROCEDURE: CA ECHO DOPPLER COMPLETE INDICATIONS: Assess function and valves, hypertension, COPD COMPARISON: None. DESCRIPTION: COMPLETE ECHOCARDIOGRAM Real-time transthoracic echocardiography with 2D, M-mode, spectral and color flow Doppler performed. QUALITY: Technical quality was good. LEFT VENTRICLE: Normal chamber size. Moderate asymmetric left ventricular hypertrophy. LV EF: Global left ventricular systolic function is hyperdynamic; visually estimated ejection fraction is 65 to 70%. No obvious wall motion abnormalities. DIASTOLIC: Normal diastolic function. ATRIAL SEPTUM: Inadequately seen. LEFT ATRIUM: Normal chamber size. RIGHT ATRIUM: Normal chamber size. RIGHT VENTRICLE: Poorly seen. Normal chamber size. Systolic function appears preserved. TRICUSPID VALVE: Normal mobility and thickness. No stenosis with trivial regurgitation. No evidence of pulmonary hypertension. RVSP 33 mmHg MITRAL VALVE: Normal mobility and thickness. No evidence of mitral valve stenosis. There is no mitral annular calcification. Trivial mitral regurgitation. AORTIC VALVE: Normal trileaflet appearance. Moderately calcified aortic valve. Normal leaflet mobility. No evidence of aortic valve stenosis. No aortic regurgitation. AORTIC ROOT: Normal diameter and appearance. Ascending aorta is normal in diameter. PULMONIC VALVE: Normal thickness and mobility. No stenosis. No regurgitation. PERICARDIUM: Anterior free space: trivial effusion versus fat pad. IVC: Not well visualized. CONCLUSION: 1. Normal left ventricular systolic function is hyperdynamic; visually estimated ejection fraction 65 to 70% 2. Moderately increased left ventricular wall thickness 3. The right ventricle is poorly seen; it appears normal in size and systolic function 4. No significant valvular abnormalities 5. Anterior free space; trivial effusion versus fat pad Adult Echocardiography Procedure Report Left Ventricle LVEDD (3.7 - 5.6 cm): 3.99 cm LVESD (2.2 - 4.0 cm): 2.95 cm LVIVS thickness (0.6 - 1.2 cm): 1.57 cm LVPW thickness (0.5 - 1.0 cm): 1.25 cm e': 0.15 m/s E - e': 4.69 LVOT Max Gradient: 5.25 mm[Hg] LVOT Area (cm2): 1.15 m/s Peak Velocity (LVOT): 1.15 m/s LVOT Diameter 2.41 cm Left Atrium LA Volume Index (2D A2C): 26.51 ml/m2 Left Atrium Systolic Dimension: 4.35 cm Mitral Valve MV E to A Ratio: 0.87 Mitral Valve A-Wave Peak Velocity: 0.81 m/s Mitral Valve E-Wave Peak Velocity: 0.70 m/s Right Ventricle Aorta AO Root Diam: 3.33 cm Ascending Ao Diam: 3.28 cm Aortic Valve AoV Area (Peak Gerard): 3.62 cm2, 3.62 cm2 Peak Velocity(Antegrade Flow): 1.44 m/s Peak Gradient(Antegrade Flow): 8.26 mm[Hg] Tricuspid Valve Peak Velocity (Regurgitant Flow): 2.66 m/s, 2.73 m/s, 2.37 m/s Pulmonic Valve Peak Gradient: 2.00 mm[Hg], 2.54 mm[Hg] Right Atrium Dictated by: Porsche Sellers M.D. on 12/01/2024 at 15:43 Approved by: Porsche Sellers M.D. on 12/01/2024 at 15:49
[2024-12-01] MEDS: ERTAPENEM SODIUM 1 GM in 0.9 % SODIUM CHLORIDE 50 ML IV (20:50)
[2024-12-01] MEDS: ACETAMINOPHEN 325 MG TABLET 650 MG PO (20:53)
[2024-12-01] MEDS: ALPRAZOLAM 0.5 MG TABLET PO (20:53)
[2024-12-01] MEDS: SENNOSIDES/DOCUSATE SODIUM 1 TAB TABLET PO (20:53)
[2024-12-01] MEDS: OXYCODONE HCL 5 MG TABLET PO (20:53)
[2024-12-01] MEDS: MAGNESIUM HYDROXIDE 2,400 MG/10 ML ORAL.SUSP 2400 MG PO (20:53)
[2024-12-01] MEDS: ONDANSETRON 4 MG RAPDIS TABLET SL (20:53)
[2024-12-01 22:14] LABS: Anion Gap 14.0; Blood Urea Nitrogen 16.0 mg/dL (7.0-18.0); Calcium 8.3 mg/dL (8.5-10.1); Carbon Dioxide 23.3 mmol/L (21.0-32.0); Chloride 90 mmol/L (98-107); Estimated GFR (African America >60 (>=60 mL/min/1.73m^2); Estimated GFR (Non-African Ame >60 (>=60 mL/min/1.73m^2); Glucose 110 mg/dL (74-106); Potassium 3.3 mmol/L (3.5-5.1)
[2024-12-01 22:15] LABS: Sodium 124 mmol/L (136-145)
[2024-12-01] MEDS: POTASSIUM CHLORIDE 10 MEQ ER TABLET 40 MEQ PO (23:49)
[2024-12-02] VITALS (18 sets, daily range): BP systolic 107–144; BP diastolic 70–90; PULSE 60–121; TEMP 36.4–37.1; O2SAT 91–98
[2024-12-02] MEDS: ONDANSETRON 4 MG RAPDIS TABLET SL ×2 (03:31→11:03)
[2024-12-02] MEDS: OXYCODONE HCL 5 MG TABLET PO ×2 (03:31→09:11)
[2024-12-02] MEDS: SODIUM CHLORIDE 1,000 MG TABLET 1000 MG PO ×3 (05:11→21:49)
[2024-12-02 05:15] LABS: Hematocrit 29.7 % (36.0-48.0); Hemoglobin 10.3 g/dL (12.0-16.0); Mean Corpuscular HGB Conc 34.7 g/dL (29.9-35.2); Mean Corpuscular Hemoglobin 33.2 pg (26.7-34.0); Mean Corpuscular Volume 95.8 fL (81.0-99.0); Platelet Count 277 10^3/uL (150-450); Red Blood Count 3.10 10^6/uL (4.20-5.40); White Blood Count 9.6 10^3/uL (4.0-11.0)
[2024-12-02 05:59] LABS: Alanine Aminotransferase 39 U/L (14-59); Albumin Globulin Ratio 0.4; Albumin Level 1.6 g/dL (3.4-5.0); Alkaline Phosphatase 258 U/L (46-116); Anion Gap 15.4; Aspartate Amino Transferase 115 U/L (15-37); Blood Urea Nitrogen 18.0 mg/dL (7.0-18.0); Calcium 8.8 mg/dL (8.5-10.1); Carbon Dioxide 21.6 mmol/L (21.0-32.0); Chloride 90 mmol/L (98-107); Estimated GFR (African America >60 (>=60 mL/min/1.73m^2); Estimated GFR (Non-African Ame >60 (>=60 mL/min/1.73m^2); Globulin 4.4 g/dL; Glucose 109 mg/dL (74-106); Potassium 4.0 mmol/L (3.5-5.1); Total Protein 6.0 g/dL (6.4-8.2)
[2024-12-02 06:13] LABS: Sodium 123 mmol/L (136-145)
[2024-12-02] MEDS: SODIUM CHLORIDE 3 % 500 ML 30 ML IV (09:09)
[2024-12-02] MEDS: ENOXAPARIN SODIUM 40 MG/0.4 ML SYRINGE SUBQ (09:11)
[2024-12-02] MEDS: SENNOSIDES/DOCUSATE SODIUM 1 TAB TABLET PO ×2 (09:11→21:48)
[2024-12-02] MEDS: IPRATROPIUM/ALBUTEROL SULFATE 3 ML AMPUL.NEB IH ×2 (09:40→21:22)
[2024-12-02] MEDS: ALPRAZOLAM 0.5 MG TABLET PO (11:03)
--- NOTE | 2024-12-02 11:06 | SWNOTE1 ---
SW spoke to OT and PT with recommendations of SNF from OT. PT will be coming back this afternoon to work with pt, pt was not feeling well this morning. SW stopped in to see how pt was feeling. She was aware that she was at [facility]. SW spoke with pt in regards to recommendations of going to SNF for a short term rehab stay. Pt has voiced she has not done that in the past. SW let her know that it is being recommended since she did not do too well with therapy. Pt did express that she was nauseous earlier when she tried to sit up with therapy, and she was dizzy. SW did ask if she thought she would be able to get up and ambulate at home like she had been doing. Pt did voice that she wants to go home and that she does not want to go to rehab. SW and pt spoke about home health services. Pt did voice she used to have them coming in, it was [facility] . SW asked if she had a preference on [employer] company. Pt alright with anyone except [facility]. SW did encourage the patient to work hard with physical therapy once they return this afternoon. SW advised pt that it would be beneficial to show that she can ambulate safely for her to return home. Pt in agreement. At this time the plan is for pt to work with physical therapy this afternoon and SW will set up home health services for pt. SW called and left voicemail for pt's . SW updated nurse as well. SW to check back with pt this afternoon. Referral sent to [facility]. Referral included face sheet, ED note, H&P, provider notes, case management report, wound consult, and PT/OT notes.
--- NOTE | 2024-12-02 11:12 | PM.PN ---
Progress Note: Subjective Subjective Interval history: Patient is feeling much better. Much more awake and coherent. Improvement of urine output. No chest pain. No abdominal pain. No bowel movement for several days. Exam Narrative Exam Narrative: [pt is awake and alert. oriented to place, time and person, central obesity HEENT: [place] conjunctiva and NL buccal mucosa Neck: Supple, no tenderness Endocrine: No Thyromegaly. Vascular: No JVD or carotid bruit. Lymphatic: No cervical lymphadenopathy. Chest: CTA no DTP. Heart RRR, no extra sound or murmur. Abd: Soft, diminished on the resolution of tenderness in all abdominal region. Neuro: Patient is awake but not fully alert. Able to answer questions and hold simple conversation which is improvement compared to what emergency room and nursing staff described having being confused and disoriented. Patient is able to follow simple commands. Symmetrical motor and tone. Tenderness at the right ankle. []] Constitutional Vital Signs, click to edit/add: Last Vital Signs Temp 98.1 F 12/02/24 07:53 Pulse 118 H 12/02/24 10:00 Resp 18 12/02/24 09:43 BP 144/90 H 12/02/24 07:53 Pulse Ox 94 L 12/02/24 09:43 O2 Del Method Room Air 12/02/24 09:43 O2 Flow Rate 2 12/01/24 21:12 Progress Note: Objective Labs Labs: Short CBC 12/02/24 Range/Units 04:45 WBC 9.6 (4.0-11.0) 10^3/uL Hgb 10.3 L (12.0-16.0) g/dL Hct 29.7 L (36.0-48.0) % Plt Count 277 (150-450) 10^3/uL BMP 12/01/24 12/01/24 12/02/24 13:58 21:48 04:45 Sodium 123 L* 124 L* 123 L* Potassium 3.5 3.3 L 4.0 Chloride 89 L 90 L 90 L Carbon Dioxide 21.6 23.3 21.6 BUN 16.0 16.0 18.0 Creatinine 1.00 0.89 0.96 Glucose 114 H 110 H 109 H Calcium 8.0 L 8.3 L 8.8 Liver Function 12/02/24 Range/Units 04:45 Total Bilirubin 1.3 H (0.2-1.0) mg/dL AST 115 H (15-37) U/L ALT 39 (14-59) U/L Alkaline Phosphatase 258 H (46-116) U/L Albumin 1.6 L (3.4-5.0) g/dL Progress Note: A&P Assessment and Plan (1) Encephalopathy: (2) Polypharmacy: (3) Elevated LFTs: (4) Fall: (5) COPD (chronic obstructive pulmonary disease): (6) Chronic hypoxic respiratory failure: (7) Acute hyponatremia: (8) Hypovolemia: (9) Volume depletion: (10) Avulsion fracture of right ankle: Qualifiers: Encounter type: initial encounter Fracture type: closed Qualified Code(s): S82.891A - Other fracture of right lower leg, initial encounter for closed fracture (11) Avulsion fracture of right calcaneus: Qualifiers: Calcaneus location: tuberosity Encounter type: initial encounter Fracture alignment: displaced Fracture type: closed Qualified Code(s): S92.031A - Displaced avulsion fracture of tuberosity of right calcaneus, initial encounter for closed fracture Plan Severe hyponatremia. Patient has low chloride level and low blood pressure suggestive of hypovolemic hyponatremia. Requested serum and urine osmolality to exclude the possibility of SIADH and/or polydipsia. Serum osmolality is still pending. Requested TSH and cortisol level to rule out hypothyroidism and adrenal insufficiency as a cause of her hyponatremia. TSH is normal, cortisol level is still pending In addition, patient was on high-dose Zoloft which could be causing or contributing to her hyponatremia. Continue gentle normal saline infusion until her volume status is repleted then discontinue normal saline. Start the patient on 3% sodium. Monitor BMP every 6 hours. Fluid restriction. Right ankle fracture is suspected Requested a podiatry consultation. Requested vitamin D level rule out vitamin D deficiency and/or osteoporosis As needed pain medication Patient was seen by dispatcher chief oil. Please refer to his notes for details. Did not recommend any surgical intervention but weightbearing as tolerated and follow-up with him in the outpatient setting. Elevated bilirubin Unknown etiology. Requested ultrasound which came back negative for acute gallbladder disease Ultrasound is positive for fatty liver which is unlikely to cause sudden rise hyperbilirubinemia Patient may have a cholestasis picture Bilirubin is improving. Constipation, probable opiate induced ileus This did not respond to Senokot and Colace I will give 1 dose of Relistor Polypharmacy Patient is on Lyrica, amitriptyline, alprazolam, oxycodone 20 mg every 4 hours and sertraline. Patient is at risk having drug side effect and oral drug?drug interaction I recommend her regimen to be simplified to reduce her risk. This would need to be completed primarily by PCP and/or psychiatrist Acute encephalopathy, confusion, disorientation CT head does not show any acute intracranial process. Encephalopathy is improved Likely caused by metabolic encephalopathy secondary to severe hyponatremia, volume depletion and polypharmacy as listed above. No focal neurological deficit. No strong indication to proceed with MRI imaging of the brain at this time. Anemia, no evidence of acute blood loss. Patient will likely require to have anemia workup to be done in the outpatient setting to be handled by PCP in collaboration with other needed outpatient providers. This may include but not limited to EGD, colonoscopy, referral to see hematology and other needed age-appropriate cancer screening. COPD with chronic hypoxic respiratory failure. The patient is on 4 L at home. Patient does not smoke anymore but reported the previous history of smoking. Unknown whether patient had PFTs in the past. Unknown whwthwr patient has other possible etiologies for her chronic hypoxic respiratory failure. Patient would need to follow-up with her PCP and/or pulmonology. Elevated BNP. No clinical evidence of fluid overload. Requested echocardiogram to exclude cardiomyopathy or significant valvular disease. Functional impairment Patient was seen by physical Occupational Therapy team recommended to be mated to skilled care for short time for therapy, rehabilitation and improve her function Chronic medical conditions not listed above, incidental findings seen on labs and imaging. These would need to be addressed. Could be addressed when time and condition are appropriate. Could be addressed in the outpatient setting by PCP collaboration with other needed outpatient providers. Patient status is dynamic and evolutionary therefore the aforementioned assessment and plan may or may not be complete or conclusive. The patient would likely require to have additional workup, investigation and the consultation but will be determined based on the clinical progression and follow-up test result I called her yesterday and gave him update on her condition, status and treatment plan. Answered all of this questions. I will try to call him again today to give him another update. Urinary Catheter Management Urinary Catheter Management Urethral: Cath placed during this visit: yes Urethral indwelling: No Insertion date: 11/30/24 Insertion time: 19:02
--- NOTE | 2024-12-02 11:45 | SWNOTE1 ---
CEDRICK received a message from Meggan at [facility]. She ran the pt's insurance and there is a coordination of benefits issue. Sunitha is stating Medicare is primary and Medicare is stating that [employer] is primary. She stated in order for them to start care, pt will have to call and notify the one that is going to be her primary. Meggan at [facility] stated it could take 7 days to reflect. SW to let pt and know.
[2024-12-02] MEDS: METHYLNALTREXONE BROMIDE 12 MG/0.6 ML VIAL SUBQ (12:13)
[2024-12-02 12:19] LABS: Anion Gap 16.1; Blood Urea Nitrogen 19.0 mg/dL (7.0-18.0); Calcium 8.9 mg/dL (8.5-10.1); Carbon Dioxide 21.2 mmol/L (21.0-32.0); Chloride 93 mmol/L (98-107); Estimated GFR (African America >60 (>=60 mL/min/1.73m^2); Estimated GFR (Non-African Ame >60 (>=60 mL/min/1.73m^2); Glucose 112 mg/dL (74-106); Potassium 4.3 mmol/L (3.5-5.1); Sodium 126 mmol/L (136-145)
--- NOTE | 2024-12-02 13:16 | SWNOTE1 ---
CEDRICK called and left message for pt's and let him know that there was an issue for the [employer] company in regards to coordination of benefits for pt's insurance. CEDRICK di dlet him know to call SW back if he had any questions. In the voicemail CEDRICK advised to call the primary insurance and let them know they are primary and the other is secondary.
--- NOTE | 2024-12-02 14:16 | SWNOTE1 ---
SW spoke with physical therapy, see notes, and they are recommending SNF at this time as well. SW waiting senior construction project manager back from pt's . Pt is hallucinating at this time.
[2024-12-02] MEDS: ACETAMINOPHEN 325 MG TABLET 650 MG PO (14:28)
[2024-12-02 18:28] LABS: Anion Gap 17.6; Blood Urea Nitrogen 22.0 mg/dL (7.0-18.0); Calcium 8.7 mg/dL (8.5-10.1); Carbon Dioxide 19.6 mmol/L (21.0-32.0); Chloride 94 mmol/L (98-107); Estimated GFR (African America >60 (>=60 mL/min/1.73m^2); Estimated GFR (Non-African Ame >60 (>=60 mL/min/1.73m^2); Glucose 125 mg/dL (74-106); Potassium 4.2 mmol/L (3.5-5.1); Sodium 127 mmol/L (136-145)
[2024-12-02] MEDS: PREGABALIN 50 MG CAPSULE PO (21:48)
[2024-12-02] MEDS: HYDROMORPHONE HCL 0.5 MG/0.5 ML SYRINGE IV (21:52)
[2024-12-03] VITALS (20 sets, daily range): BP systolic 108–134; BP diastolic 74–88; PULSE 85–115; TEMP 36.3–37.4; O2SAT 90–95
[2024-12-03 06:27] LABS: Alanine Aminotransferase 39 U/L (14-59); Albumin Globulin Ratio 0.3; Albumin Level 1.5 g/dL (3.4-5.0); Alkaline Phosphatase 260 U/L (46-116); Anion Gap 17.1; Aspartate Amino Transferase 125 U/L (15-37); Blood Urea Nitrogen 25.0 mg/dL (7.0-18.0); Calcium 9.0 mg/dL (8.5-10.1); Carbon Dioxide 18.2 mmol/L (21.0-32.0); Chloride 97 mmol/L (98-107); Estimated GFR (African America >60 (>=60 mL/min/1.73m^2); Estimated GFR (Non-African Ame >60 (>=60 mL/min/1.73m^2); Globulin 4.6 g/dL; Glucose 118 mg/dL (74-106); Potassium 4.3 mmol/L (3.5-5.1); Sodium 128 mmol/L (136-145); Total Protein 6.1 g/dL (6.4-8.2)
[2024-12-03] MEDS: PREGABALIN 50 MG CAPSULE PO ×3 (06:27→21:58)
[2024-12-03] MEDS: SODIUM CHLORIDE 1,000 MG TABLET 1000 MG PO (06:27)
--- NOTE | 2024-12-03 08:01 | SWNOTE1 ---
CEDRICK spoke to pt's yesterday evening. Pt's does feel that pt will need to go to rehab for a short time for her safety and strengthening. He voiced he does work everyday and that it would be best for her to get stronger before returning home. SW messaged the link to Medicare.gov to 's cell phone. SW also had nursing bring pt a copy of area nursing homes from Medicare.gov. CEDRICK advised that pt is a precert and we will have to wait for insurance to approve her to go. CEDRICK also requested that pt's pick 2-3 facilities and SW will check this morning to see if they have availability. Pt's in agreement.
--- NOTE | 2024-12-03 08:30 | SWNOTE1 ---
SW stopped in pt's room to see if family had left list of 2-3 facilities for SW to check in to for rehab. Pt was awake in bed. SW conversed with pt. Pt did remember her family coming to hospital yesterday evening. SW asked if she ate breakfast, she voiced she has never really been a breakfast eater. SW asked if she knew where she was? She stated [facility]. Pt does mumble at times. SW did speak with pt about rehab and the recommendations of her going to SNF for short term rehab stay. SW did explain that her and family do feel that it would be best for her at this time for her own safety and due to her working every day. SW explained that it would be beneficial to get stronger before she returns home. SW let her know it is a short term stay and her insurance and her progression with therapy will determine how long she is at rehab. Pt did ask how long she would be at hospital? SW explained that it will depend on when she is medically stable and when her insurance approves her to go. During conversation, Occupation therapy, nursing, and physician came in. Pt did ask physician if she could go home today. Physician to stop back in. SW to stop back in after therapy. SW called and left message for pt's in regards to facility choices, left voicemail.
[2024-12-03] MEDS: IPRATROPIUM/ALBUTEROL SULFATE 3 ML AMPUL.NEB IH ×2 (10:05→20:17)
[2024-12-03] MEDS: ACETAMINOPHEN 325 MG TABLET 650 MG PO ×2 (10:26→23:20)
[2024-12-03] MEDS: SENNOSIDES/DOCUSATE SODIUM 1 TAB TABLET PO ×2 (10:26→21:58)
[2024-12-03] MEDS: ENOXAPARIN SODIUM 40 MG/0.4 ML SYRINGE SUBQ (10:26)
--- NOTE | 2024-12-03 11:25 | PT.DAILY ---
Physical Therapy Daily Note PT Daily Note/Assess Start: 12/03/24 11:16 Freq: Status: Active Protocol: Document 12/03/24 11:17 ALEXANDRE (Rec: 12/03/24 11:24 ALEXANDRE [id number]) Physical Therapy Daily Note/Assessment Time In/Time Out Time In 11:00 Time Out 11:10 Pain In Pain N/A Pain Out Pain N/A Subjective Subjective Pt supine upon arrival. Mumbling and laying crooked in bed. Agrees to allow MAMMOGRAPHY SUPERVISOR to assist with repositioning. Unable to keep her eyes open throughout session. Does not respond appropriately to most questions asked. Therapeutic Exercise Time Therapeutic Exercise 5 Minutes (minutes) Therapeutic Exercise 1 Units Therapeutic Exercise Treatment Therapeutic Exercise Bilat LE PROM performed in supine for 5 min after Treatment attempting AROM and pt being unreceptive/unable to comprehend commands. Therapeutic Activity Time Therapeutic Activity 3 Minutes (minutes) Therapeutic Activity 0 Units Therapeutic Activity Treatment Bed Mobility Ability Maximum Assist Therapeutic Activity MaxA to reposition pt in bed to her comfort - shifting Comments trunk and shoulder and placing pillows under arms. Total Physical Therapy Time Total Therapy 8 Minutes Total Physical 1 Therapy Units Summary Daily Note Summary Poor tolerance/comprehension of session today due to level of alertness.
--- NOTE | 2024-12-03 11:56 | SWNOTE1 ---
SW did receive another message from and he did called [facility] last evening and they are sending forms to him and he needs to fill out and send it back and [facility] will switch it over within 1-2 days. Pt's did also say in voicemail that he would like [facility], [facility], or [facility]. All of the above take [facility]. SW called and left voicemail for that SW sent referral to [facility] to get things started. Waiting to hear back. Referral sent to [facility]. Referral included face sheet, ED note, H&P, provider notes, case management report, podiatry consult, nursing notes, diagnostic imaging, med list, and PT/OT notes.
--- NOTE | 2024-12-03 11:58 | PC.NURSE ---
At 1152: Pt had a 6-8 beat run of V tach, primary RN Juany Rebolledo RN and Dr. Mondragon notified and made aware.
--- NOTE | 2024-12-03 12:05 | SWNOTE1 ---
CEDRICK received call back from Lara at [facility] and they have reviewed and can accept. Laar is waiting on benefits to come back. CEDRICK did let Lara know that when CEDRICK sent referral to [facility], there was an issue with coordination of benefits. Lara will keep CEDRICK updated. CEDRICK let Lara know that the did call [place] insurance last night.
--- NOTE | 2024-12-03 12:09 | PM.PN ---
Progress Note: Subjective Subjective Interval history: Patient is feeling much better. Much more awake and coherent. Improvement of urine output. No chest pain. No abdominal pain. No bowel movement for several days. Exam Constitutional Vital Signs, click to edit/add: Last Vital Signs Temp 97.4 F L 12/03/24 08:00 Pulse 110 H 12/03/24 11:56 Resp 18 12/03/24 08:00 BP 134/87 12/03/24 08:00 Pulse Ox 92 L 12/03/24 10:05 O2 Del Method Room Air 12/03/24 10:05 O2 Flow Rate 2 12/01/24 21:12 Progress Note: Objective Labs Labs: BMP 12/02/24 12/02/24 12/03/24 11:58 18:10 05:07 Sodium 126 L 127 L 128 L Potassium 4.3 4.2 4.3 Chloride 93 L 94 L 97 L Carbon Dioxide 21.2 19.6 L 18.2 L BUN 19.0 H 22.0 H 25.0 H Creatinine 0.82 0.92 0.94 Glucose 112 H 125 H 118 H Calcium 8.9 8.7 9.0 Liver Function 12/03/24 Range/Units 05:07 Total Bilirubin 0.8 (0.2-1.0) mg/dL AST 125 H (15-37) U/L ALT 39 (14-59) U/L Alkaline Phosphatase 260 H (46-116) U/L Albumin 1.5 L (3.4-5.0) g/dL Progress Note: A&P Assessment and Plan (1) Encephalopathy: (2) Polypharmacy: (3) Elevated LFTs: (4) Fall: (5) COPD (chronic obstructive pulmonary disease): (6) Chronic hypoxic respiratory failure: (7) Acute hyponatremia: (8) Hypovolemia: (9) Volume depletion: (10) Avulsion fracture of right ankle: Qualifiers: Encounter type: initial encounter Fracture type: closed Qualified Code(s): S82.891A - Other fracture of right lower leg, initial encounter for closed fracture (11) Avulsion fracture of right calcaneus: Qualifiers: Encounter type: initial encounter Calcaneus location: tuberosity Fracture type: closed Fracture alignment: displaced Qualified Code(s): S92.031A - Displaced avulsion fracture of tuberosity of right calcaneus, initial encounter for closed fracture Plan Severe hyponatremia. Patient has low chloride level and low blood pressure suggestive of hypovolemic hyponatremia. Requested serum and urine osmolality to exclude the possibility of SIADH and/or polydipsia. Serum osmolality is still pending. Urine osmolality is low. Requested TSH and cortisol level to rule out hypothyroidism and adrenal insufficiency as a cause of her hyponatremia. TSH is normal, cortisol level is elevated making a possibility of adrenal insufficiency less likely. In addition, patient was on high-dose Zoloft which could be causing or contributing to her hyponatremia. Normal saline infusion had been discontinued after her volume status has been repleted. Patient completed 3% sodium infusion. Fluid restriction. Continue sodium chloride tablet. Right ankle fracture is suspected Requested a podiatry consultation. Requested vitamin D level rule out vitamin D deficiency and/or osteoporosis As needed pain medication Patient was seen by exercise planner. Please refer to his notes for details. Did not recommend any surgical intervention but weightbearing as tolerated and follow-up with him in the outpatient setting. Elevated bilirubin Unknown etiology. Requested ultrasound which came back negative for acute gallbladder disease Ultrasound is positive for fatty liver which is unlikely to cause sudden rise hyperbilirubinemia Patient may have a cholestasis picture Bilirubin is improving. Constipation, probable opiate induced ileus This did not respond to Senokot and Colace Patient had received 1 dose of Relistor Patient had a bowel movement already Polypharmacy Patient is on Lyrica, amitriptyline, alprazolam, oxycodone 20 mg every 4 hours and sertraline. Patient is at risk having drug side effect and oral drug?drug interaction I recommend her regimen to be simplified to reduce her risk. This would need to be completed primarily by PCP and/or psychiatrist Acute encephalopathy, confusion, disorientation CT head does not show any acute intracranial process. Encephalopathy is improved Likely caused by metabolic encephalopathy secondary to severe hyponatremia, volume depletion and polypharmacy as listed above. No focal neurological deficit. No strong indication to proceed with MRI imaging of the brain at this time. Anemia, no evidence of acute blood loss. Patient will likely require to have anemia workup to be done in the outpatient setting to be handled by PCP in collaboration with other needed outpatient providers. This may include but not limited to EGD, colonoscopy, referral to see hematology and other needed age-appropriate cancer screening. COPD with chronic hypoxic respiratory failure. The patient is on 4 L at home. Patient does not smoke anymore but reported the previous history of smoking. Unknown whether patient had PFTs in the past. Unknown whwthwr patient has other possible etiologies for her chronic hypoxic respiratory failure. Patient would need to follow-up with her PCP and/or pulmonology. Elevated BNP. No clinical evidence of fluid overload. Requested echocardiogram to exclude cardiomyopathy or significant valvular disease. Echocardiogram does not show cardiomyopathy or significant valvular disease Functional impairment Patient was seen by physical Occupational Therapy team recommended to be mated to skilled care for short time for therapy, rehabilitation and improve her function Patient has been accepted at [facility]. Pending insurance approval and certification DVT prophylaxis Lovenox subcu Chronic medical conditions not listed above, incidental findings seen on labs and imaging. These would need to be addressed. Could be addressed when time and condition are appropriate. Could be addressed in the outpatient setting by PCP collaboration with other needed outpatient providers. Urinary Catheter Management Urinary Catheter Management Urethral: Cath placed during this visit: yes Urethral indwelling: No Insertion date: 11/30/24 Insertion time: 19:02
--- NOTE | 2024-12-03 13:15 | SWNOTE1 ---
Lara reached back out and insurance came back as [place] and they just need to have it precerted. CEDRICK let Lara know it is alright to start precert. Precert to be started today by [facility]. CEDRICK to call and let him know. CEDRICK completed HENS 7000 online.
--- NOTE | 2024-12-03 13:17 | SWNOTE1 ---
CEDRICK did get confirmation from Lara that precert has been started for pt to go skilled to [facility]. CEDRICK took pt's packet to the floor and let nursing know that [facility] will call if pt is approved over the weekend.
--- NOTE | 2024-12-03 13:30 | PC.NURSE ---
Processing Technologist verbalized concern of patient's condition, hallucinations, mottling, poor appetite to Dr Mondragon. Processing Technologist also showed him the run of SVT that was already sent to him via [employer] text. He just states this is ok . Processing Technologist asked doctor what he thought was going on with this patient and he said She had a low sodium when she came in. Nothing else is going on . Processing Technologist said I know that but with her hallucinations, mottling, swelling, confusion ...... he states, its much better than before
--- NOTE | 2024-12-03 13:47 | SWNOTE1 ---
SW received a message from Lara and pt did get approved to go to [facility] already. SW to speak with Dr. Mondragon.
--- NOTE | 2024-12-03 13:47 | SWNOTE1 ---
CEDRICK spoke to Dr. Mondragon and pt is not ready for discharge today, likely over the weekend, if not then Friday. CEDRICK did ask Lara how long approval is good for, she said the (Friday). CEDRICK let Lara know it is possible for pt to discharge over the weekend. CEDRICK left packet at nurses station and will let nurse know to call [facility] if pt is discharged over the weekend.
--- NOTE | 2024-12-03 13:49 | SWNOTE1 ---
SW called pt's , Trev, and left him a message. SW advised for him to call SW back with any questions.
--- NOTE | 2024-12-03 13:58 | SWNOTE1 ---
SW did stop on and speak with pt to let her know about [facility] and approval. SW woke pt up from sleeping. Pt voiced she was tired. SW did explain to pt that SW spoke to her and he highly encouraged her to go to rehab for her safety and to get her stronger. Pt again voiced he does make her anxious, but she also voiced for SW to talk to her . SW again let her know that SW has spoke to and he has voiced to SW that he feels rehab is best thing for her at this time. Pt did not make much eye contact and had some mumbled speech. SW asked pt if she was in agreement with this plan and let her know when she is ready for discharge she will go to [facility] for a short time to get stronger. Pt stated, Ok. Pt then closed her eyes
[2024-12-03] MEDS: SODIUM CHLORIDE 1,000 MG TABLET 2000 MG PO ×2 (14:16→21:58)
--- NOTE | 2024-12-03 14:33 | PC.NURSE ---
Heel Reducer fed patient mashed potatoes and pudding. She only took 2 bites of potatoes and 4 bites of pudding. She struggles to drink from straw, taking a lot of effort to suck on it. Patient continues to look around room, eyes darting, rolling back. Words mumbled.
--- NOTE | 2024-12-03 17:49 | DIETREC ---
Recommend 237 mL Ensure Original TID and 30 mL PRO-stat TID d/t poor food intakes and albumin 1.5. [place] text to physician.
[2024-12-04] VITALS (20 sets, daily range): BP systolic 90–142; BP diastolic 57–84; PULSE 87–108; TEMP 36.4–36.9; O2SAT 93–96
[2024-12-04] MEDS: SODIUM CHLORIDE 1,000 MG TABLET 2000 MG PO ×3 (05:46→21:24)
[2024-12-04] MEDS: PREGABALIN 50 MG CAPSULE PO ×3 (05:46→21:25)
[2024-12-04 06:50] LABS: Anion Gap 15.5; Blood Urea Nitrogen 35.0 mg/dL (7.0-18.0); Calcium 8.5 mg/dL (8.5-10.1); Carbon Dioxide 20.4 mmol/L (21.0-32.0); Chloride 99 mmol/L (98-107); Estimated GFR (African America 50 (>=60 mL/min/1.73m^2); Estimated GFR (Non-African Ame 42 (>=60 mL/min/1.73m^2); Glucose 105 mg/dL (74-106); Potassium 3.9 mmol/L (3.5-5.1); Sodium 131 mmol/L (136-145)
--- NOTE | 2024-12-04 09:12 | REH.PTDLY ---
Physical Therapy Daily Note PT Daily Note/Assess Start: 12/03/24 11:16 Freq: Status: Active Protocol: Document 12/04/24 09:03 TOMMAYUR (Rec: 12/04/24 09:12 [facility] [id number]) Physical Therapy Daily Note/Assessment Time In 08:42 Time Out 09:00 Subjective Pt awake this morning. Agreeable to PT. States she just got up to use commode and it took two people. However nurses aide reports she hasn't been up since she has been here this morning. Therapeutic Exercise 6 Minutes (minutes) Therapeutic Exercise 0 Units Therapeutic Exercise Instructed in L LE AP and heel slides 10x ea. Cues for Treatment keyshawn quad sets 10x ea. Pt unable to perform SLR on R LE when asked, needing assistance. Once pt is seated in chair instructed in Keyshawn LAQ and marching 10x ea for leg strength. Therapeutic Activity 11 Minutes (minutes) Therapeutic Activity 1 Units Therapeutic Activity Aircast on R foot and pt is WBAT. Supine to sit Comments transfers Mod A x2. Pt leans to the L onto bed with cues for pt to sit upright, pt states she needs a minute due to discomfort on bottom. Mod A to sit pt upright at bedside. Pt able to maintain seated balance once sitting with feet on floor. With bed elevated instructed pt in sit to stand transfers Mod A x2. Gait training with RW Mod A x1 and CGA x1 with cues for larger steps and to keep RW closer to body. Pt wants to sit without being aware of what is behind her. Cues needed for pt to feel chair behind her with legs. Cues to reach back with arms, but pt fails to do so. Total Therapy 17 Minutes Total Physical 1 Therapy Units Daily Note Summary Pt more alert today compared to previous 2 therapy treatments. Pt requires Mod A x2 with transfers. Several cues needed with gait for safety and Mod A. Pt needs rehab at [facility] as she is unable to perform transfers and gait independently. Pt thinks she is fine to go home stating go tell the doctor I did what I needed to do so I can go home . Discussed with pt that she is not safe to go home based on performance in therapy today.
--- NOTE | 2024-12-04 09:13 | PM.PN ---
Progress Note: Subjective Subjective Interval history: Patient is feeling much better. Much more awake and coherent. Improvement of urine output. No chest pain. No abdominal pain. No bowel movement for several days. Exam Constitutional Vital Signs, click to edit/add: Last Vital Signs Temp 97.6 F 12/03/24 23:23 Pulse 99 H 12/04/24 07:48 Resp 20 12/03/24 23:23 BP 108/74 12/03/24 23:23 Pulse Ox 94 L 12/04/24 05:42 O2 Del Method Room Air 12/04/24 05:42 O2 Flow Rate 2 12/01/24 21:12 Progress Note: Objective Labs Labs: BMP 12/04/24 05:52 Sodium 131 L Potassium 3.9 Chloride 99 Carbon Dioxide 20.4 L BUN 35.0 H Creatinine 1.32 H Glucose 105 Calcium 8.5 Progress Note: A&P Assessment and Plan (1) Encephalopathy: (2) Polypharmacy: (3) Elevated LFTs: (4) Fall: (5) COPD (chronic obstructive pulmonary disease): (6) Chronic hypoxic respiratory failure: (7) Acute hyponatremia: (8) Hypovolemia: (9) Volume depletion: (10) Avulsion fracture of right ankle: Qualifiers: Encounter type: initial encounter Fracture type: closed Qualified Code(s): S82.891A - Other fracture of right lower leg, initial encounter for closed fracture (11) Avulsion fracture of right calcaneus: Qualifiers: Encounter type: initial encounter Calcaneus location: tuberosity Fracture type: closed Fracture alignment: displaced Qualified Code(s): S92.031A - Displaced avulsion fracture of tuberosity of right calcaneus, initial encounter for closed fracture Plan Severe hyponatremia. Patient has low chloride level and low blood pressure suggestive of hypovolemic hyponatremia. Requested serum and urine osmolality to exclude the possibility of SIADH and/or polydipsia. Serum osmolality is still pending. Urine osmolality is low. Requested TSH and cortisol level to rule out hypothyroidism and adrenal insufficiency as a cause of her hyponatremia. TSH is normal, cortisol level is elevated making a possibility of adrenal insufficiency less likely. In addition, patient was on high-dose Zoloft which could be causing or contributing to her hyponatremia. Normal saline infusion had been discontinued after her volume status has been repleted. Patient completed 3% sodium infusion. Fluid restriction. Continue sodium chloride tablet. Sodium is up to 131. Right ankle fracture is suspected Requested a podiatry consultation. Requested vitamin D level rule out vitamin D deficiency and/or osteoporosis As needed pain medication Patient was seen by manager strategic alliances. Please refer to his notes for details. Did not recommend any surgical intervention but weightbearing as tolerated and follow-up with him in the outpatient setting. Elevated bilirubin Unknown etiology. Requested ultrasound which came back negative for acute gallbladder disease Ultrasound is positive for fatty liver which is unlikely to cause sudden rise hyperbilirubinemia Patient may have a cholestasis picture Bilirubin is improving. Constipation, probable opiate induced ileus This did not respond to Senokot and Colace Patient had received 1 dose of Relistor Patient had a bowel movement already Polypharmacy Patient is on Lyrica, amitriptyline, alprazolam, oxycodone 20 mg every 4 hours and sertraline. Patient is at risk having drug side effect and oral drug?drug interaction I recommend her regimen to be simplified to reduce her risk. This would need to be completed primarily by PCP and/or psychiatrist Acute encephalopathy, confusion, disorientation CT head does not show any acute intracranial process. Encephalopathy is improved Likely caused by metabolic encephalopathy secondary to severe hyponatremia, volume depletion and polypharmacy as listed above. No focal neurological deficit. No strong indication to proceed with MRI imaging of the brain at this time. Anemia, no evidence of acute blood loss. Patient will likely require to have anemia workup to be done in the outpatient setting to be handled by PCP in collaboration with other needed outpatient providers. This may include but not limited to EGD, colonoscopy, referral to see hematology and other needed age-appropriate cancer screening. COPD with chronic hypoxic respiratory failure. The patient is on 4 L at home. Patient does not smoke anymore but reported the previous history of smoking. Unknown whether patient had PFTs in the past. Unknown whwthwr patient has other possible etiologies for her chronic hypoxic respiratory failure. Patient would need to follow-up with her PCP and/or pulmonology. Elevated BNP. No clinical evidence of fluid overload. Requested echocardiogram to exclude cardiomyopathy or significant valvular disease. Echocardiogram does not show cardiomyopathy or significant valvular disease Functional impairment Patient was seen by physical Occupational Therapy team recommended to be mated to skilled care for short time for therapy, rehabilitation and improve her function Patient has been accepted at [facility]. Pending insurance approval and certification DVT prophylaxis Lovenox subcu Chronic medical conditions not listed above, incidental findings seen on labs and imaging. These would need to be addressed. Could be addressed when time and condition are appropriate. Could be addressed in the outpatient setting by PCP collaboration with other needed outpatient providers. Urinary Catheter Management Urinary Catheter Management Urethral: Cath placed during this visit: yes Urethral indwelling: No Insertion date: 11/30/24 Insertion time: 19:02
--- NOTE | 2024-12-04 09:15 | PM.EN ---
Event Note Event Note: I called her Trev 3 times to give him update on her condition, status and treatment plan?see if he has any question. I called him on 12/01, 12/03 and today 12/04. I left 3 messages for him over the last 3 days.
[2024-12-04] MEDS: SENNOSIDES/DOCUSATE SODIUM 1 TAB TABLET PO (09:16)
[2024-12-04] MEDS: ENOXAPARIN SODIUM 40 MG/0.4 ML SYRINGE SUBQ (09:16)
[2024-12-04] MEDS: OXYCODONE HCL 5 MG TABLET 10 MG PO ×3 (09:16→21:24)
[2024-12-04] MEDS: ACETAMINOPHEN 325 MG TABLET 650 MG PO ×2 (09:16→16:02)
[2024-12-04] MEDS: 0.9 % SODIUM CHLORIDE 1,000 ML 125 ML IV (09:17)
[2024-12-04] MEDS: IPRATROPIUM/ALBUTEROL SULFATE 3 ML AMPUL.NEB IH ×2 (09:21→20:17)
[2024-12-04] MEDS: METHYLNALTREXONE BROMIDE 12 MG/0.6 ML VIAL SUBQ (11:27)
[2024-12-04 20:08] LABS: Osmolality, Urine 330 mOsmol/kg (.)
[2024-12-04] MEDS: ALPRAZOLAM 0.5 MG TABLET PO (21:25)
[2024-12-05] VITALS (18 sets, daily range): BP systolic 114–125; BP diastolic 76–83; PULSE 69–102; TEMP 36.4–36.8; O2SAT 91–94
[2024-12-05] MEDS: OXYCODONE HCL 5 MG TABLET 10 MG PO ×2 (05:21→09:57)
[2024-12-05] MEDS: SODIUM CHLORIDE 1,000 MG TABLET 2000 MG PO (05:21)
[2024-12-05] MEDS: PREGABALIN 50 MG CAPSULE PO ×3 (05:22→21:51)
[2024-12-05 06:36] LABS: Anion Gap 12.2; Blood Urea Nitrogen 32.0 mg/dL (7.0-18.0); Calcium 8.1 mg/dL (8.5-10.1); Carbon Dioxide 22.3 mmol/L (21.0-32.0); Chloride 103 mmol/L (98-107); Estimated GFR (African America >60 (>=60 mL/min/1.73m^2); Estimated GFR (Non-African Ame >60 (>=60 mL/min/1.73m^2); Glucose 84 mg/dL (74-106); Potassium 3.5 mmol/L (3.5-5.1); Sodium 134 mmol/L (136-145)
[2024-12-05] MEDS: IPRATROPIUM/ALBUTEROL SULFATE 3 ML AMPUL.NEB IH ×2 (08:38→20:15)
[2024-12-05] MEDS: ENOXAPARIN SODIUM 40 MG/0.4 ML SYRINGE SUBQ (09:57)
[2024-12-05] MEDS: SENNOSIDES/DOCUSATE SODIUM 1 TAB TABLET PO ×2 (09:57→21:51)
--- NOTE | 2024-12-05 10:46 | P.PN_ITS ---
Progress Note: Subjective Subjective Interval history: Patient is feeling much better. Much more awake and coherent. Improvement of urine output. No chest pain. No abdominal pain. No bowel movement for several days. Exam Narrative Exam Narrative: Left arm is swollen. She has midline on the left side. Chest is clear, heart is regular. Abdomen soft. Mentation is back to baseline Constitutional Vital Signs, click to edit/add: Last Vital Signs Temp 98.0 F 12/05/24 08:00 Pulse 87 12/05/24 10:13 Resp 18 12/05/24 08:00 BP 120/83 12/05/24 08:00 Pulse Ox 92 L 12/05/24 08:40 O2 Del Method Room Air 12/05/24 08:40 O2 Flow Rate 2 12/01/24 21:12 Progress Note: Objective Labs Labs: [facility] 12/05/24 06:09 Sodium 134 L Potassium 3.5 Chloride 103 Carbon Dioxide 22.3 BUN 32.0 H Creatinine 0.70 Glucose 84 Calcium 8.1 L Progress Note: A&P Assessment and Plan (1) Encephalopathy: (2) Polypharmacy: (3) Elevated LFTs: (4) Fall: (5) COPD (chronic obstructive pulmonary disease): (6) Chronic hypoxic respiratory failure: (7) Acute hyponatremia: (8) Hypovolemia: (9) Volume depletion: (10) Avulsion fracture of right ankle: Qualifiers: Encounter type: initial encounter Fracture type: closed Qualified Code(s): S82.891A - Other fracture of right lower leg, initial encounter for closed fracture (11) Avulsion fracture of right calcaneus: Qualifiers: Encounter type: initial encounter Calcaneus location: tuberosity Fracture type: closed Fracture alignment: displaced Qualified Code(s): S92.031A - Displaced avulsion fracture of tuberosity of right calcaneus, initial encounter for closed fracture Plan Severe hyponatremia. Patient has low chloride level and low blood pressure suggestive of hypovolemic hyponatremia. Requested serum and urine osmolality to exclude the possibility of SIADH and/or polydipsia. Serum osmolality is still pending. Urine osmolality is low. Requested TSH and cortisol level to rule out hypothyroidism and adrenal insufficiency as a cause of her hyponatremia. TSH is normal, cortisol level is elevated making a possibility of adrenal insufficiency less likely. In addition, patient was on high-dose Zoloft which could be causing or contributing to her hyponatremia. Normal saline infusion had been discontinued after her volume status has been repleted. Patient completed 3% sodium infusion. Fluid restriction. Continue sodium chloride tablet. Sodium is up to 134. Left arm edema. Patient has a midline in the right arm. Requested venous study rule out DVT. Unfortunately this would not be done until tomorrow and that could delay her discharge. Right ankle fracture Requested a podiatry consultation. Requested vitamin D level rule out vitamin D deficiency and/or osteoporosis As needed pain medication Patient was seen by back pad inspector. Please refer to his notes for details. Did not recommend any surgical intervention but weightbearing as tolerated and follow-up with him in the outpatient setting. Elevated bilirubin Unknown etiology. Requested ultrasound which came back negative for acute gallbladder disease Ultrasound is positive for fatty liver which is unlikely to cause sudden rise hyperbilirubinemia Patient may have a cholestasis picture Bilirubin is improving. Constipation, probable opiate induced ileus This did not respond to Senokot and Colace Patient had received 1 dose of Relistor Patient is having daily bowel movement. Polypharmacy Patient is on Lyrica, amitriptyline, alprazolam, oxycodone 20 mg every 4 hours and sertraline. Patient is at risk having drug side effect and oral drug?drug interaction I recommend her regimen to be simplified to reduce her risk. This would need to be completed primarily by PCP and/or psychiatrist Acute encephalopathy, confusion, disorientation CT head does not show any acute intracranial process. Encephalopathy is improved Likely caused by metabolic encephalopathy secondary to severe hyponatremia, volume depletion and polypharmacy as listed above. No focal neurological deficit. No strong indication to proceed with MRI imaging of the brain at this time. Complete resolution of encephalopathy. Back to baseline state. Anemia, no evidence of acute blood loss. Patient will likely require to have anemia workup to be done in the outpatient setting to be handled by PCP in collaboration with other needed outpatient providers. This may include but not limited to EGD, colonoscopy, referral to see hematology and other needed age-appropriate cancer screening. COPD with chronic hypoxic respiratory failure. The patient is on 4 L at home. Patient does not smoke anymore but reported the previous history of smoking. Unknown whether patient had PFTs in the past. Unknown whwthwr patient has other possible etiologies for her chronic hypoxic respiratory failure. Patient would need to follow-up with her PCP and/or pulmonology. Elevated BNP. No clinical evidence of fluid overload. Requested echocardiogram to exclude cardiomyopathy or significant valvular disease. Echocardiogram does not show cardiomyopathy or significant valvular disease Functional impairment Patient was seen by physical Occupational Therapy team recommended to be mated to skilled care for short time for therapy, rehabilitation and improve her function Patient has been accepted at [facility]. Pending insurance approval and certification DVT prophylaxis Lovenox subcu Chronic medical conditions not listed above, incidental findings seen on labs and imaging. These would need to be addressed. Could be addressed when time and condition are appropriate. Could be addressed in the outpatient setting by PCP collaboration with other needed outpatient providers. Urinary Catheter Management Urinary Catheter Management Urethral: Cath placed during this visit: yes Urethral indwelling: No Insertion date: 11/30/24 Insertion time: 19:02
[2024-12-05] MEDS: SODIUM CHLORIDE 1,000 MG TABLET 1000 MG PO ×2 (14:05→21:51)
[2024-12-05] MEDS: HYDROMORPHONE HCL 0.5 MG/0.5 ML SYRINGE IV (16:14)
[2024-12-05] MEDS: ALPRAZOLAM 0.5 MG TABLET PO (21:51)
[2024-12-06] VITALS (11 sets, daily range): BP systolic 117–139; BP diastolic 75–92; PULSE 88–113; TEMP 36.4–37.2; O2SAT 91–95
[2024-12-06] MEDS: SODIUM CHLORIDE 1,000 MG TABLET 1000 MG PO ×2 (05:51→13:10)
[2024-12-06] MEDS: PREGABALIN 50 MG CAPSULE PO ×2 (05:51→13:10)
--- NOTE | 2024-12-06 07:18 | PC.NURSE ---
Pt had tachycardia in the 170s at 0713 lasting approximately 10-20 seconds. Primary RN Angie Gould RN notified as well as Dr. Mondragon. Pt now in NSR with a HR of 95.
--- NOTE | 2024-12-06 08:15 | CM.NOTE ---
Rounds made with Dr. Mondragon, discussed plan of care with pt. Pt will discharge to [facility] for skilled therapy. Dr. Mondragon updated pt on discharge planning and care, pt in agreement.
[2024-12-06] MEDS: ENOXAPARIN SODIUM 40 MG/0.4 ML SYRINGE SUBQ (08:42)
[2024-12-06] MEDS: OXYCODONE HCL 5 MG TABLET 10 MG PO ×2 (08:43→13:10)
--- NOTE | 2024-12-06 09:00 | CM.NOTE ---
Case Manage in to speak with pt regarding COPD and chronic disease management. Pt at this time does not have a vein pumper. Pt states her PCP had spoken with her in regards to seeing a vein pumper and gave her a name and number to set up an appointment. Pt states I just never scheduled appointment. Discussed with pt about setting up appointment prior to discharge, pt in agreement. Pt verbalizes understanding importance of chronic disease management, exercise, medications, and f/u appointments. Pt then states I have decided I'm not going to go to skilled rehab at discharge, I am going back home with services. Discussed with pt the risk of returning home with weakness and falls at home, pt continues to refuse skilled. Talked with pt regarding safety issues and need for skilled therapy to get her stronger prior to returning home. Talked with pt about PT and OT evaluation and reason for skilled therapy along with chronic disease management. Pt continues to refuse skilled therapy, Dr. Mondragon updated and he will speak with pt.
[2024-12-06] MEDS: IPRATROPIUM/ALBUTEROL SULFATE 3 ML AMPUL.NEB IH (09:02)
--- NOTE | 2024-12-06 09:12 | PC.NURSE ---
Skip Miner Blasting noted home meds in patient's locked armature inspector nurse seismic prospecting observer. Skip Miner Blasting found narcotics. They have been counted with another RN and placed back into locked drawer.
[2024-12-06] MEDS: ALPRAZOLAM 0.5 MG TABLET PO (11:24)
--- NOTE | 2024-12-06 11:26 | REH.PTDLY ---
Physical Therapy Daily Note PT Daily Note/Assess Start: 12/03/24 11:16 Freq: Status: Active Protocol: Document 12/06/24 11:20 TOMMAYUR (Rec: 12/06/24 11:26 [id number] Physical Therapy Daily Note/Assessment Time In 10:53 Time Out 11:10 Subjective Pt hesitant to participating in therapy as she states her whole body hurts and her legs just give out on her. Educated pt on importance of therapy as pt has not been getting out of bed. Therapeutic Activity 15 Minutes (minutes) Therapeutic Activity 1 Units Therapeutic Activity Verbal and tactile cues needed for supine to sit Comments transfers, pt requires Mod A to sit upright. Once sitting bedside directed pt in scooting to EOB for feet to be on floor. Pt states she can't, Mod A to assist. Pt then states she wants to lay back down as she doesn' t feel good and she has pain in her legs. Continued to educate pt on importance of getting into chair and benefits of therapy. Pt continues to refuse getting up with use of RW, offered Juany Steady and pt still refuses to get out of bed. Cues for pt to bring legs back into bed, Required Mod A and Mod A x2 to position pt in supine. Bed alarm on and call light at hand. Total Therapy 15 Minutes Total Physical 1 Therapy Units Daily Note Summary Pt performed transfers to bedside, but refuses to stand or get into chair at this time because of pain. Pt has very forward flexed seated posture as well and is very weak. Pt is agreeable to rehab at this time with [facility]. enters room as well and agrees to rehab with him.
--- NOTE | 2024-12-06 11:37 | P.DS_ITS ---
DS: Providers Provider Date of admission: 11/30/24 19:59 Primary care physician: Kymberly Gilmore MD Consults: 11/30/24 20:46 Consult to Podiatry Routine Consulting Provider: Black Weeks Reason for consultation: Ankle pain, ? fracture 12/02/24 08:26 Occupational Therapy Eval and Treat Routine Reason for consultation: Weakness Physical Therapy Eval and Treat Routine Reason for consultation: Weakness DS: Diagnosis Discharge Diagnosis (1) Encephalopathy: (2) Polypharmacy: (3) Elevated LFTs: (4) Fall: (5) COPD (chronic obstructive pulmonary disease): (6) Chronic hypoxic respiratory failure: (7) Acute hyponatremia: (8) Hypovolemia: (9) Volume depletion: (10) Avulsion fracture of right ankle: Qualifiers: Encounter type: initial encounter Fracture type: closed Qualified Code(s): S82.891A - Other fracture of right lower leg, initial encounter for closed fracture (11) Avulsion fracture of right calcaneus: Qualifiers: Encounter type: initial encounter Calcaneus location: tuberosity Fracture type: closed Fracture alignment: displaced Qualified Code(s): S92.031A - Displaced avulsion fracture of tuberosity of right calcaneus, initial encounter for closed fracture Plan As listed above and other that are not listed DS: Summary Hospital Course Hospital Course: Mrs. Frazier is a 54-year-old female who came in with change in mental status and was found to have the following: Severe hyponatremia. Patient has low chloride level and low blood pressure suggestive of hypovolemic hyponatremia. Requested serum and urine osmolality to exclude the possibility of SIADH and/or polydipsia. Serum osmolality is still pending. Urine osmolality is low. Requested TSH and cortisol level to rule out hypothyroidism and adrenal insufficiency as a cause of her hyponatremia. TSH is normal, cortisol level is elevated making a possibility of adrenal insufficiency less likely. In addition, patient was on high-dose Zoloft which could be causing or contributing to her hyponatremia. Normal saline infusion had been discontinued after her volume status has been repleted. Patient completed 3% sodium infusion. Fluid restriction. Continue sodium chloride tablet. Sodium is up to 134. Patient will be discharged home of sodium chloride tablet. Patient will be discharged off SSRI as this may be contributing to her hyponatremia. Left arm edema. Patient has a midline in the right arm. Requested venous study rule out DVT. Midline will be removed prior to discharge Right ankle fracture Requested a podiatry consultation. Requested vitamin D level rule out vitamin D deficiency and/or osteoporosis. vitamin D level came back elevated As needed pain medication Patient was seen by manufacturing maintenance mechanic. Please refer to his notes for details. Did not recommend any surgical intervention but weightbearing as tolerated and follow-up with him in the outpatient setting. Follow-up with Dr. Weeks in 2 weeks Elevated bilirubin Unknown etiology. Requested ultrasound which came back negative for acute gallbladder disease Ultrasound is positive for fatty liver which is unlikely to cause sudden rise hyperbilirubinemia Patient may have a cholestasis picture Bilirubin is improving. Bilirubin is back to normal by the discharge date Constipation, probable opiate induced ileus This did not respond to Senokot and Colace Patient had received 1 dose of Relistor Patient is having daily bowel movement. Polypharmacy Patient is on Lyrica, amitriptyline, alprazolam, oxycodone 20 mg every 4 hours and sertraline. Patient is at risk having drug side effect and oral drug?drug interaction I recommend her regimen to be simplified to reduce her risk. This would need to be completed primarily by PCP and/or psychiatrist Acute encephalopathy, confusion, disorientation CT head does not show any acute intracranial process. Encephalopathy is improved Likely caused by metabolic encephalopathy secondary to severe hyponatremia, volume depletion and polypharmacy as listed above. No focal neurological deficit. No strong indication to proceed with MRI imaging of the brain at this time. Complete resolution of encephalopathy. Back to baseline state. Anemia, no evidence of acute blood loss. Patient will likely require to have anemia workup to be done in the outpatient setting to be handled by PCP in collaboration with other needed outpatient providers. This may include but not limited to EGD, colonoscopy, referral to see hematology and other needed age-appropriate cancer screening. COPD with chronic hypoxic respiratory failure. The patient is on 4 L at home. Patient does not smoke anymore but reported the previous history of smoking. Unknown whether patient had PFTs in the past. Unknown whwthwr patient has other possible etiologies for her chronic hypoxic respiratory failure. Patient would need to follow-up with her PCP and/or pulmonology. Elevated BNP. Intermittent SVTs on the monitor. No clinical evidence of fluid overload. Requested echocardiogram to exclude cardiomyopathy or significant valvular disease. Echocardiogram does not show cardiomyopathy or significant valvular disease Now Blood pressure had improved we will resume beta-archie metoprolol 25 mg twice daily. Functional impairment Patient was seen by physical Occupational Therapy team recommended to be mated to skilled care for short time for therapy, rehabilitation and improve her fu nction Patient has been accepted at [facility]. Pending insurance approval and certification DVT prophylaxis Lovenox subcu Chronic medical conditions not listed above, incidental findings seen on labs and imaging. These would need to be addressed. Could be addressed when time and condition are appropriate. Could be addressed in the outpatient setting by PCP collaboration with other needed outpatient providers. Patient has multiple complex medical issues as listed above and others that are not listed. All appear to be stable. I do not have any clear or strong clinical justification to extend inpatient hospitalization. Patient however will require close and frequent monitoring as well as additional work-up, investigation and therapeutic intervention that could take place from this point on post discharge. That is to prevent relapse, decompensation, rehospitalization and other medical implications. I instructed patient to ask her primary care doctor to obtain [facility] record entirely to address abnormalities seen on labs and imaging that I have and have not addressed during this hospitalization, follow-up on pending blood work, imaging and pathology is if available and to follow-up on needed medical care in the outpatient setting. Time Spent with Patient Time attestation: Total time spent providing and/or coordinating discharge services: Exam Constitutional Vital Signs, click to edit/add: Last Vital Signs Temp 98.2 F 12/06/24 11:26 Pulse 94 H 12/06/24 11:26 Resp 18 12/06/24 11:26 BP 122/82 12/06/24 11:26 Pulse Ox 92 L 12/06/24 11:26 O2 Del Method Room Air 12/06/24 11:26 O2 Flow Rate 2 12/01/24 21:12 Discharge Plan Discharge Disposition: [facility] Condition: Serious Assessment: I may not have addressed or treated all of your medical illnesses or the abnormal blood work or imaging studies during this hospitalization. Please ask your primary care provider to obtain [facility] records entirely to follow up on all of the abnormal physical, laboratory, and imaging findings that I have not addressed. For [facility]ci providers Fall precautions Weightbearing as tolerated with the ankle brace.. Please arrange for patient to follow-up with the manufacturing maintenance mechanic Dr. Black Weeks in 2 weeks BMP every Friday and for 2 weeks to monitor electrolytes and kidney function CBC every Friday to monitor white count, hemoglobin and platelets Fall precautions Please arrange for patient to follow-up with manufacturing maintenance mechanic Dr. Black Weeks in 2 weeks. Please return back to the emergency room or seek medical attention if your symptoms worsen or return. Discharging you from [facility] does not mean that your medical care ends here and now. You may still need additional monitoring, work up, investigation, and treatment plan to be handled from this point on by out patient providers including your primary care provider and specialists. For any medication question, please contact your retail pharmacist or your primary care provider. Thank you. Discharge Medications: New acetaminophen [Tylenol] 325 mg Tablet 650 mg PO Q6H PRN (Reason: Pain) Qty: 0 0RF albuterol sulfate 2.5 mg /3 mL (0.083 %) Solution For Nebulization 2.5 mg inhalation Q6H PRN (Reason: SHORTNESS OF BREATH/WHEEZING) Qty: 0 0RF ipratropium-albuterol 0.5 mg-3 mg(2.5 mg base)/3 mL Solution For Nebulization 3 ml inhalation RTBID Qty: 0 0RF sennosides-docusate sodium [Senna Plus] 8.6-50 mg Tablet 1 tab PO BID Qty: 0 0RF oxycodone 5 mg Tablet 10 mg PO Q6H PRN (Reason: Pain) Qty: 15 0RF pregabalin 50 mg Capsule 50 mg PO BID Qty: 16 0RF metoprolol tartrate 25 mg Tablet 25 mg PO BID Qty: 0 0RF trazodone 50 mg tablet 50 mg PO HS Qty: 30 0RF aspirin 325 mg tablet 325 mg PO DAILY Qty: 30 0RF Changed alprazolam 0.5 mg tablet 0.5 mg PO BID PRN (Reason: anxiety) 5 Days Qty: 10 0RF Discontinued metoprolol succinate 50 mg tablet extended release 24 hr 50 mg PO .QD pregabalin 200 mg capsule 200 mg PO TID sertraline 100 mg tablet 200 mg PO DAILY amitriptyline 75 mg tablet 75 mg PO .qhs oxycodone 20 mg tablet 20 mg PO Q4H PRN (Reason: pain) Print Language: Luxembourger Forms: Portal Instructions Follow Up Appointments: [facility] Pulmonology will need a referral from Dr. Gilmore to get an appt. [address] [facility] [address], [address], [place] [phone]
--- NOTE | 2024-12-06 13:04 | P.EN_ITS ---
Event Note Event Note: Ultrasound of the left arm came back positive for thrombus in the basilic vein which is a superficial vein. The midline in the left arm will be removed. Hopefully that event by itself will allow for the thrombus to resolve over time. No indication for anticoagulation at this time I do recommend that a repeat venous ultrasound is to be completed in 10 days to be arranged by the custodial provider to exclude progression into the deep venous system Request for repeat ultrasound is plug-in into the discharge document electronically.
[2024-12-06] MEDS: METOPROLOL TARTRATE 25 MG TABLET PO (13:10)
--- NOTE | 2024-12-06 13:26 | SWNOTE1 ---
Pt is stable for d/c today. Called [facility] for transportation and they can apple picking supervisor at 2:30. SW notified nurse and Lawler of apple picking supervisor time.
== END 2024-12-06 14:51 | DRG 640 ==
LOC: ER 19:57 → MS 21:25
PROVIDERS: Admitting Provider Internal Medicine; Emergency Provider Emergency Medicine; PCP Family Medicine; Visit Provider Internal Medicine
DX: E87.1 Hypo-osmolality and hyponatremia (principal); G93.41 Metabolic encephalopathy; J96.11 Chronic respiratory failure with hypoxia; J44.1 Chronic obstructive pulmonary disease with (acute) exacerbation; K56.7 Ileus, unspecified; I82.612 Acute embolism and thrombosis of superficial veins of left upper extremity; T82.868A Thrombosis due to vascular prosthetic devices, implants and grafts, initial encounter; E86.1 Hypovolemia; R41.0 Disorientation, unspecified; Z99.81 Dependence on supplemental oxygen; Z87.891 Personal history of nicotine dependence; E80.6 Other disorders of bilirubin metabolism; K76.0 Fatty (change of) liver, not elsewhere classified; Z79.899 Other long term (current) drug therapy; D64.9 Anemia, unspecified; R79.89 Other specified abnormal findings of blood chemistry; G62.9 Polyneuropathy, unspecified; I48.91 Unspecified atrial fibrillation; I10 Essential (primary) hypertension; I71.9 Aortic aneurysm of unspecified site, without rupture; Z98.84 Bariatric surgery status; Z90.410 Acquired total absence of pancreas; S82.61XA Displaced fracture of lateral malleolus of right fibula, initial encounter for closed fracture; W18.39XA Other fall on same level, initial encounter; S92.031A Displaced avulsion fracture of tuberosity of right calcaneus, initial encounter for closed fracture; E66.89 Other obesity not elsewhere classified; E86.9 Volume depletion, unspecified; F32.A Depression, unspecified; E86.0 Dehydration; G89.29 Other chronic pain; K59.00 Constipation, unspecified; R60.0 Localized edema; T40.2X5A Adverse effect of other opioids, initial encounter; Y82.8 Other medical devices associated with adverse incidents
CPT/HCPCS: 36410; 36415; 36592; 36600; 51702; 70450; 71045; 72125; 72131; 72192; 73562; 73610; 73630; 74177; 76705; 80048; 80053; 81001; 81003; 82306; 82533; 82550; 82805; 83735; 83880; 83930; 83935; 84100; 84443; 84484; 85025; 85027; 85610; 93005; 93306; 93971; 94640; 94761; 96361; 96374; 97110; 97162; 97165; 97530; 97535; 99285; C1887; J0696; J1171; J1335; J1650; J1720; J2212; J7131; Q0162; Q9966; Q9967

== ENCOUNTER 2025-01-22 10:16 | Inpatient (IN) | payer BC, MEDICARE, SELFPAY ==
--- OUTSIDE RECORDS SUMMARY | 2024-06-01 10:30 | XMS_ITS ---
Author Organization The [facility] [place] Address [address] [place] [address] Care Team Providers Care Carbon Printer Name Role Phone Kymberly Gilmore Primary Care Provider Black Zhang Unavailable [phone] REASON FOR VISIT ref from Dr. 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) Active confirmed Encounters Encounter Location Date Provider Diagnosis [facility] (PODIAT[facility]) [address] [place] [address] [place] [address] 06/01/2024 Black Weeks Pain in left ankle [...] * Edgar BOOTHtimothyDOB: [birth year] (53 yo F)Acc No.[id number]:06/01/2024 New Patient Patient: Candy LOUIS Provider: Jasmina Weeks DPM, MS :1970 A ge:53 Y S ex:Female Date:06/01/2024 Address:[facility] [address] , [id number] Pcp:Kymberly Gilmore Check In:02:21 PM ESTCheck O [...] * Provider: Jasmina Weeks DPM, MS Date: 06/01/2024 Generated for [facility] baron/Devorah/Marva on: 01/22/2025 10:23 AM EDT History and Physical Notes * HPI [...]
--- OUTSIDE RECORDS SUMMARY | 2024-06-11 07:40 | XMS_ITS ---
Author Organization [facility] Address [address] [place] [address] Care Team Providers Care Manager Strategic Name Role Phone Kymberly Gilmore M.D. Primary Care Provider Unavail able Jovana Holloway Unavailable [phone] Cta BURKETT, Andrius Unavailable Unavailab le REASON FOR VISIT L4-5 REVISION DECOMPRESSION WITH FUSION, 04/21/24, IOS Encounters Encounter Location Date Provider Diagnosis [facility] [address] [place] [address] [place] [address] 06/11/2024 Jovana Holloway Plan Of Treatment No Information Progress Notes * RASHID BOOTHDOB:[birth year] (54 yo F)Acc No.[id number]:06/11/2024 Progress Notes Patient: Jaimee PALENCIARASHID Provider: Tom Guardado MD, PhD :1970 A ge:53 Y S ex:Female Date:06/11/2024 Address:[address] , [id number] Pcp:Kymberly Gilmore M.D. Subjective: * Chief Complaints: * 1 . L4-5 REVISION DECOMPRESSION WITH FUSION, 04/21/24, IOS. * Medical History: Objective: * Vitals: Assessment: Plan: * Treatment: Forms: * Images: * Electronic signature of Camryn Holloway MD, PHD on 01/22/2025 at 10:22 AM EDT Sign off status: Pending * Provider: Tom Guardado MD, PhD Date: 0 06/11/2024 Generated for Jay baron/Devorah/Marva on: 0 01/22/2025 10:22 AM EDT
--- OUTSIDE RECORDS SUMMARY | 2024-07-30 07:30 | XMS_ITS ---
Author Organization [facility] Address [address] [place] [address] Care Team Providers Care Geothermal Electrical Engineer Name Role Phone Kymberly Gilmore M.D. Primary Care Provider Unavail able Jewel, Shalalorri Unavailable [phone] Cat BURKETT, Andri Unavailable Unavailab le REASON FOR VISIT L4-5 REVISION DECOMPRESSION WITH FUSION, [facility], 06/08/24 Medications Medication SIG (Take, Route, Fr equency, Duration) Notes Start Date End Date Status Flexeril 10 mg 1 tab(s) orally 3 ti mes a day prn muscle spasms 04/19/2024 Active None Active ALPRAZolam Active pregabalin Active sertraline Active amitriptyline Active oxyCODONE Active Vitamin D3 Active eletriptan Active ondansetron Active Encounters Encounter Location Date Provider Diagnosis [facility] Office [address] [place] [address] [place] [address] 07/30/2024 Shalalorri Jewel Aftercare following surgery of the musculoskeletal system Z47.89 Assessments Encounter Date Diagnosis (ICD Code) Assessment Notes Treatment Notes Treatment Clinical Notes Section Notes 07/30/2024 Aftercare following surgery of the musculoskeletal system (ICD-10 - Z47.89) Plan Of Treatment Pending Test Test Name Order Date Lumbar spine 2v ap and lat - [id number] 07/30 Progress Notes * RASHID BOOTHDOB:[birth year] (54 yo F)Acc No.[id number]:07/30/2024 Progress Notes Patient: RASHID LOUIS Provider: Tom Guardado MD, PhD :1970 A ge:53 Y S ex:Female Date:07/30/2024 Address:[address] , [id number] Pcp:Kymberly Gilmore M.D. Subjective: * Chief Complaints: * 1 . L4-5 REVISION DECOMPRESSION WITH FUSION, [facility], 06/08/24. * Medical History: * Surgical [...] Camryn Holloway MD, PHD on 01/22/2025 at 10:23 AM EDT Sign off status: Pending * Provider: Tom Guardado MD, PhD Date: 07/30/2024 Generated for Jay baron/Devorah/eTroxysmitting on: 0 01/22/2025 10:23 AM EDT
--- OUTSIDE RECORDS SUMMARY | 2024-09-24 06:40 | XMS_ITS ---
Author Organization [facility] Address [address] [place] [address] Care Team Providers Care Coke Oven Patcher Name Role Phone Kymberly Gilmore M.D. Primary Care Provider Unavail able Jovana Holloway Unavailable [phone] Cat BURKETT, Andrius Unavailable Unavailab le REASON [...] Active Encounters Encounter Location Date Provider Diagnosis [facility] Office [address] [place] [address] [place] [address] 09/24/2024 Jovana Holloway Plan Of Treatment Pending Test Test Name Order Date Lumbar spine 2v ap and lat - [id number] 09/24 Progress Notes * RASHID BOOTHDOB:[birth year] (54 yo F)Acc No.[id number]:09/24/2024 Patient: Jaimee KAMALASVENRASHID Provider: Tom Guardado MD, PhD :1970 A ge:53 Y S ex:Female Date:09/24/2024 Address:[address] [place] , [id number] Pcp:Kymberly Gilmore M.D. Subjective: * Chief Complaints: [...] * Provider: Tom Guardado MD, PhD Date: 09/24/2024 Generated for Jay baron/Devorah/Marva on: 0 01/22/2025 10:22 AM EDT
--- OUTSIDE RECORDS SUMMARY | 2024-12-16 09:30 | XMS_ITS ---
Author Organization [facility] Address [address] [address], [place] [address] Care Team Providers Care Inside Sales Director Name Role Phone Mando BURKETT, Kymberly Primary Care Provider Unavailab Black Varma Unavailable [phone] REASON FOR VISIT Right Ankle Pain Encounters Encounter Location Date Provider Diagnosis [facility] [place], [facility] [address] [address], [place] [address] 12/16/2024 Black Weeks Plan Of Treatment No Information Progress Notes * Candy BOOTHDOB:[birth year] (54 yo F)Acc No.[id number]:12/16/2024 New Patient Patient: Jaimee restrepo Candy Acuña Provider: Jasmina Weeks DPM :1970 A ge:54 Y S ex:Female Date:12/16/2024 Address:[address] , [id number] Pcp:Kymberly Gilmore MD Subjective: * Chief Complaints: * R ight Ankle Pain Billing Information: * Procedure Codes: * Electronic signature of Paras Weeks DPM MS on 01/22/2025 at 10:22 AM EDT Sign off status: Pending * Provider: Jasmina Weeks DPM Date: 12/16/2024 Generated for Jay baron/Devorah/eTransmitting on: 01/22/2025 10:22 AM EDT
[2025-01-22] VITALS (64 sets, daily range): BP systolic 62–143; BP diastolic 45–100; PULSE 79–150; TEMP 36.5–39.6; O2SAT 91–100; BMI 29.8; BMI 28.1
--- OUTSIDE RECORDS SUMMARY | 2025-01-22 10:22 | XMS_ITS | Encounter Summary ---
Author Organization [facility] [employer] [facility] tem Address [id number] [address] [place] [address] Care Team Providers Care Teasel Gig Operator Name Role Phone Kymberly Gilmore MD Primary Care Provider [phone] Encounter Details Date Type Department Care Team (Late st Contact Info) Description 01/20/2025 Lab Requisition [facility] - Lab [address] [place] [phone] Kymberly Gilmore MD [address] [place] [address] Hypo-osmolality and hyponatremia; Anemia, unspecified; Hypokalemia Social History Tobacco Use Types Packs/Day Years Used Date Smoking Tobacco: Every Day Cigarettes 1 20 Alcohol Use Standard Drinks/Week Comments Not Asked [...] Procedure Name Priority Date/Time Associated Diagnosis Comments CBC WITH AUTO DIFFERENTIAL Routine 01/20/2025 11:42 AM EDT Hypo-osmolality and hyponatremia Anemia, unspecified Hypokalemia BASIC METABOLIC PANEL Routine 01/20/2025 11:42 AM EDT Hypo-osmolality and hyponatremia Anemia, unspecified Hypokalemia documented in this encounter Results * (ABNORMAL) Basic metabolic panel (01/20/2025 11:42 AM EDT) SODIUM 139 134 - 146 mmol/L 01/20/2025 2:00 PM EDT [facility] POTASSIUM 3.6 3.5 - 5.0 mmol/L 01/20/2025 2:00 PM EDT [facility] CHLORIDE 105 98 - 109 mmol/L 01/20/2025 2:00 PM EDT [facility] CARBON DIOXIDE 25 22 - 32 mmol/L 01/20/2025 2:00 PM EDT [facility] ANION GAP 9 5 - 15 mmol/L 01/20/2025 2:00 PM EDT [facility] BLOOD UREA NITROGEN <5(L) 5 - 23 mg/dL 01/20/2025 2:00 PM EDT [facility] CREATININE 0.66 0.40 - 1.00 mg/dL 01/20/2025 2:00 PM EDT [facility] Comment:METHOD TRACEABLE TO IDMS STANDARD GLUCOSE 123(H) 65 - 99 mg/dL 01/20/2025 2:00 PM EDT [facility] CALCIUM 8.5 8.5 - 10.5 mg/dL 01/20/2025 2:00 PM EDT [facility] EGFR Non-Race Dependent >90 >=60 ml/min/1.7 3sq.m 01/20/2025 2:00 PM EDT [facility] Comment: eGFR not reported due to non-numeric value for Creatinine. EGFR not calculated due to patient's gender not being defined. Reported eGFR is based on the CKD-EPI 2020 equation that does not use a race coefficient. Blood Venous blood / Unknown 01/20/2025 11:42 AM EDT 01/20/2025 12:49 PM EDT us Kymberly Gilmore MD LAB BLOOD ORDERABLES Final Res ult [facility] [address] [place] [address], * (ABNORMAL) CBC auto differential (01/20/2025 11:42 AM EDT) WBC 4.7 4 - 11 x10E9/L 01/20/2025 1:01 PM EDT [facility] RBC Count 3.83 3.8 - 5.2 X10E12/L 01/20/2025 1:01 PM EDT [facility] Hemoglobin 10.5(L) 11.7 - 15.5 g/dL 01/20/2025 1:01 PM EDT [facility] Hematocrit 32.9(L) 35 - 47 % 01/20/2025 1:01 PM EDT [facility] MCV 86 80 - 100 fL 01/20/2025 1:01 PM EDT [facility] MCH 27.3 27 - 34 pg 01/20/2025 1:01 PM EDT [facility] MCHC 31.8(L) 32 - 36 g/dL 01/20/2025 1:01 PM EDT [facility] RDW 20.7(H) 11.5 - 15 % 01/20/2025 1:01 PM EDT [facility] Platelet Count 283 150 - 450 X10E9/L 01/20/2025 1:01 PM EDT [facility] MPV 7.8 7 - 12 fL 01/20/2025 1:01 PM EDT [facility] Neutrophils % 63.6 % 01/20/2025 1:01 PM EDT [facility] Lymphocytes % 27.1 % 01/20/2025 1:01 PM EDT [facility] Monocytes % 7.4 % 01/20/2025 1:01 PM EDT [facility] Eosinophils % 1.4 % 01/20/2025 1:01 PM EDT [facility] Basophils % 0.5 % 01/20/2025 1:01 PM EDT [facility] Neutrophils Absolute (A) 3.0 1.5 - 6.6 10*3/uL 01/20/2025 1:01 PM EDT [facility] Lymphocytes Absolute 1.3 1.0 - 3.5 10*3/uL 01/20/2025 1:01 PM EDT [facility] Monocytes Absolute 0.3 0.0 - 0.9 10*3/uL 01/20/2025 1:01 PM EDT [facility] Eosinophils Absolute 0.1 0.0 - 0.4 10*3/uL 01/20/2025 1:01 PM EDT [facility] Basophils Absolute 0.0 0.0 - 0.2 10*3/uL 01/20/2025 1:01 PM EDT [facility] Differential Type AUTOMATED DIFFERENTIAL 01/20/2025 1:01 PM EDT [facility] Blood Venous blood / Unknown 01/20/2025 11:42 AM EDT 01/20/2025 12:49 PM EDT us Kymberly Gilmore MD LAB BLOOD ORDERABLES Final Res ult [facility] [address] [place] [address], documented in this encounter Visit Diagnoses Diagnosis Hypo-osmolality and hyponatremia Anemia, unspecified Hypokalemia Hypopotassemia documented in this encounter Care Teams Teasel Gig Operator Relationship Specialty Start Date End Date Kymberly Gilmore MD [address] [place] [address] PCP - General Family Medicine 02/03/19 documented as of this encounter
--- OUTSIDE RECORDS SUMMARY | 2025-01-22 10:22 | XMS_ITS | Patient Health Record ---
Author Organization [employer] Address [address], [place] [address] Care Team Providers Care Wirer Passenger Car Name Role Phone Mando BURKETT, Kymberly Primary Care Provider Unavailab Black Varma Unavailable [phone] Reason For Referral No Information Plan Of Treatment No Information Insurance Providers Payer Name Payer Address Payer Phone Subscriber Number Group Number Insured Name Patient Relationship to Insured Coverage Start Date Coverage End Date [facility] [address] [place] [phone] [id number] Trev Dias Spouse - patient is the spouse of the insured Anthem [place] Medicare Access Value [address] [place] [address] [phone] [id number] Candy Dias Self - patient is the insured
--- OUTSIDE RECORDS SUMMARY | 2025-01-22 10:22 | XMS_ITS | Clinical Summary ---
Author Organization [employer] tem Address [facility][id number] [address] [place] [address] Care Team Providers Care Employee Counselor Name Role Phone Kymberly Gilmore MD Primary Care Provider [phone] Allergies Active Allergy Reactions Criticality Noted Date [...] 09/21/2013 Foot pain 07/29/2013 Acute bronchitis 06/09/2013 Encounters Date Type Department Care Team Description 01/20/2025 Lab Requisition [facility] - Lab [address] [place] [address] Kymberly Gilmore MD Hypo-osmolality and hyponatremia; Anemia, unspecified; Hypokalemia 01/07/2025 Lab Requisition [facility] - Lab [address] [place] [address] Kymberly Gilmore MD Hypo-osmolality and hyponatremia from Last 3 Months Family History Medical History Relation Name Comments [...] Date Last Done Comments Depression Screening 1980 Tobacco Screening 1980 DTaP,Tdap and Td Vaccines (1 - Tdap) 05/17/199704/26 Zoster (Shingles) Vaccine (1 of 2) 2018 Adult BMI Screening 12/11/2023 12/10/2022 COVID-19 Vaccine (4 - 2023-2 5 season) 2024 05/13/2021, 08/22/2020, 08/02/2020 Influenza Vaccine 01/24/2025 05/13/2021 Medical Devices Not on file Procedures Procedure Name Priority Date/Time Associated Diagnosis Comments BASIC METABOLIC PANEL Routine 01/20/2025 11:42 AM EDT Hypo-osmolality and hyponatremia Anemia, unspecified Hypokalemia CBC WITH AUTO DIFFERENTIAL Routine 01/20/2025 11:42 AM EDT Hypo-osmolality and hyponatremia Anemia, unspecified Hypokalemia CBC WITH AUTO DIFFERENTIAL Routine 01/07/2025 4:55 PM EDT Hypo-osmolality and hyponatremia BASIC METABOLIC PANEL Routine 01/07/2025 4:55 PM EDT Hypo-osmolality and hyponatremia from Last 3 Months Results * (ABNORMAL) CBC auto differential (01/20/2025 11:42 AM EDT) Only the most recent of2 resultswithin the time period is included. WBC 4.7 4 - 11 x10E9/L 01/20/2025 1:01 PM EDT [facility] RBC Count 3.83 3.8 - 5.2 X10E12/L 01/20/2025 1:01 PM EDT [facility] Hemoglobin 10.5(L) 11.7 - 15.5 g/dL 01/20/2025 1:01 PM EDT [facility] Hematocrit 32.9(L) 35 - 47 % 01/20/2025 1:01 PM EDT [facility] MCV 86 80 - 100 fL 01/20/2025 1:01 PM EDT [facility] MCH 27.3 27 - 34 pg 01/20/2025 1:01 PM EDT [facility] MCHC 31.8(L) 32 - 36 g/dL 01/20/2025 1:01 PM EDT [facility] RDW 20.7(H) 11.5 - 15 % 01/20/2025 1:01 PM EDT [facility] Platelet Count 283 150 - 450 X10E9/L 01/20/2025 1:01 PM EDT [facility] MPV 7.8 7 - 12 fL 01/20/2025 1:01 PM EDT [facility] Neutrophils % 63.6 % 01/20/2025 1:01 PM EDT [facility] Lymphocytes % 27.1 % 01/20/2025 1:01 PM EDT [facility] Monocytes % 7.4 % 01/20/2025 1:01 PM EDT [facility] Eosinophils % 1.4 % 01/20/2025 1:01 PM EDT [facility] Basophils % 0.5 % 01/20/2025 1:01 PM EDT [facility] Neutrophils Absolute (A) 3.0 1.5 - 6.6 10*3/uL 01/20/2025 1:01 PM EDT [facility] Lymphocytes Absolute 1.3 1.0 - 3.5 10*3/uL 01/20/2025 1:01 PM EDT [facility] Monocytes Absolute 0.3 0.0 - 0.9 10*3/uL 01/20/2025 1:01 PM EDT [facility] Eosinophils Absolute 0.1 0.0 - 0.4 10*3/uL 01/20/2025 1:01 PM EDT [facility] Basophils Absolute 0.0 0.0 - 0.2 10*3/uL 01/20/2025 1:01 PM EDT [facility] Differential Type AUTOMATED DIFFERENTIAL 01/20/2025 1:01 PM EDT [facility] Blood Venous blood / Unknown 01/20/2025 11:42 AM EDT 01/20/2025 12:49 PM EDT us Kymberly Gilmore MD LAB BLOOD ORDERABLES Final Res ult [facility] [address] [place] [address], * (ABNORMAL) Basic metabolic panel (01/20/2025 11:42 AM EDT) Only the most recent of2 resultswithin the time period is included. SODIUM 139 134 - 146 mmol/L 01/20/2025 2:00 PM EDT [facility] POTASSIUM 3.6 3.5 - 5.0 mmol/L 01/20/2025 2:00 PM EDT [facility] CHLORIDE 105 98 - 109 mmol/L 01/20/2025 2:00 PM EDT [facility] CARBON DIOXIDE 25 22 - 32 mmol/L 01/20/2025 2:00 PM EDT [facility] ANION GAP 9 5 - 15 mmol/L 01/20/2025 2:00 PM EDT [facility] BLOOD UREA NITROGEN <5(L) 5 - 23 mg/dL 01/20/2025 2:00 PM EDT [facility] CREATININE 0.66 0.40 - 1.00 mg/dL 01/20/2025 2:00 PM EDT [facility] Comment:METHOD TRACEABLE TO IDMS STANDARD GLUCOSE 123(H) 65 - 99 mg/dL 01/20/2025 2:00 PM EDT [facility] CALCIUM 8.5 8.5 - 10.5 mg/dL 01/20/2025 2:00 PM EDT [facility] EGFR Non-Race Dependent >90 >=60 ml/min/1.7 3sq.m 01/20/2025 2:00 PM EDT [facility] Comment: eGFR not reported due to non-numeric value for Creatinine. EGFR not calculated due to patient's gender not being defined. Reported eGFR is based on the CKD-EPI 2020 equation that does not use a race coefficient. Blood Venous blood / Unknown 01/20/2025 11:42 AM EDT 01/20/2025 12:49 PM EDT us Kymberly Gilmore MD LAB BLOOD ORDERABLES Final Res ult [facility] [address] [place] [address], from Last 3 Months Insurance MEDICARE [facility] Care Teams Employee Counselor Relationship Specialty Start Date End Date Kymberly Gilmore MD [facility] [place] [address] PCP - General Family Medicine 02/03/19
--- OUTSIDE RECORDS SUMMARY | 2025-01-22 10:22 | XMS_ITS | Encounter Summary ---
Author Organization [facility] [employer] [facility] tem Address [facility][id number] [address] [place] [address] Care Team Providers Care Pre Certification Specialist Name Role Phone Kymberly Gilmore MD Primary Care Provider [phone] Encounter Details Date Type Department Care Team (Late st Contact Info) Description 11/28/2022 Orders Only [facility] - [facility] [address] [place] [phone] Kymberly Gilmore MD [address] [place] [address] Social History Tobacco Use Types [...] on filedocumented in this encounter Care Teams Pre Certification Specialist Relationship Specialty Start Date End Date Kymberly Gilmore MD [address] [place] [address] PCP - General Family Medicine 02/03/19 documented as of this encounter
--- OUTSIDE RECORDS SUMMARY | 2025-01-22 10:22 | XMS_ITS | Encounter Summary ---
Author Organization [facility] Address [address] [place] [address] Care Team Providers Care Preforming Machine Operator Name Role Phone Kymberly Gilmore MD Primary Care Provider [phone] Source Comments In the event this information is protected by the Federal Confidentiality of Alcohol and Drug AbusePatient Records regulations: The Federal rules restrict any use of the information to criminally investigate or prosecute any alcohol or drug abuse patient.[facility] Encounter Details Date Type Department Care [...] N ot on file 05/03/2020 Data from: [email or web address] Last address used for calculation Not [...] on filedocumented in this encounter Care Teams Preforming Machine Operator Relationship Specialty [place] [address] [place] [phone] PCP - General Family Medicine 10/11/20 documented as of this encounter
--- OUTSIDE RECORDS SUMMARY | 2025-01-22 10:22 | XMS_ITS | Clinical Summary ---
Author Organization [facility] Address [address] [place] [address] Care Team Providers Care Organic Chemistry Professor Name Role Phone Unavailable Primary Care Provider [...] 1968 FIT-DNA 1968 FIT 1968 FOBT 1968 Medicare Annual Wellness (AWV) 1968 Sigmoidoscopy 1968 Depression Screening 1980 Pneumococcal Vaccine: Pediatrics (0 to 5 Years) and At-Risk Patients (6 to 64 Years) (1 of 2 - PCV) 10/06/1987 Pap Smear 1989 Cervical Cancer Screening 1998 HPV/Cotest 1998 Adult Tetanus 05/16/2007 05/16/1997 Mammogram 2008 Zoster Vaccines (1 of 2) 2018 COVID-19 Vaccine (1 - season) 2024 Influenza Vaccine (#1) 2025 05/13/2021 [...] patient's age to complete this topic Insurance [facility] MEDICARE
--- OUTSIDE RECORDS SUMMARY | 2025-01-22 10:22 | XMS_ITS | Encounter Summary ---
Author Organization [facility] [employer] [facility] tem Address [id number] [address] [place] [address] Care Team Providers Care Labelling Machine Operator Name Role Phone Kymberly Gilmore MD Primary Care Provider [phone] Encounter Details Date Type Department Care Team (Late st Contact Info) Description 01/07/2025 Lab Requisition [facility] - Lab [address] [place] [phone] Kymberly Gilmore MD [address] [place], [place] [phone] Hypo-osmolality and hyponatremia Social History Tobacco Use Types Packs/Day Years [...] Diagnosis Comments CBC WITH AUTO DIFFERENTIAL Routine 01/07/2025 4:55 PM EDT Hypo-osmolality and hyponatremia BASIC METABOLIC PANEL Routine 01/07/2025 4:55 PM EDT Hypo-osmolality and hyponatremia documented in this encounter Results * (ABNORMAL) CBC auto differential (01/07/2025 4:55 PM EDT) WBC 3.1(L) 4 - 11 x10E9/L 01/07/2025 6:38 PM EDT [facility] RBC Count 2.83(L) 3.8 - 5.2 X10E12/L 01/07/2025 6:38 PM EDT [facility] Hemoglobin 8.2(L) 11.7 - 15.5 g/dL 01/07/2025 6:38 PM EDT [facility] Hematocrit 25.1(L) 35 - 47 % 01/07/2025 6:38 PM EDT [facility] MCV 89 80 - 100 fL 01/07/2025 6:38 PM EDT [facility] MCH 28.8 27 - 34 pg 01/07/2025 6:38 PM EDT [facility] MCHC 32.5 32 - 36 g/dL 01/07/2025 6:38 PM EDT [facility] RDW 18.4(H) 11.5 - 15 % 01/07/2025 6:38 PM EDT [facility] Platelet Count 174 150 - 450 X10E9/L 01/07/2025 6:38 PM EDT [facility] MPV 7.9 7 - 12 fL 01/07/2025 6:38 PM EDT [facility] Neutrophils % 49.6 % 01/07/2025 6:38 PM EDT [facility] Lymphocytes % 39.0 % 01/07/2025 6:38 PM EDT [facility] Monocytes % 8.2 % 01/07/2025 6:38 PM EDT [facility] Eosinophils % 2.8 % 01/07/2025 6:38 PM EDT [facility] Basophils % 0.4 % 01/07/2025 6:38 PM EDT [facility] Neutrophils Absolute (A) 1.5 1.5 - 6.6 10*3/uL 01/07/2025 6:38 PM EDT [facility] Lymphocytes Absolute 1.2 1.0 - 3.5 10*3/uL 01/07/2025 6:38 PM EDT [facility] Monocytes Absolute 0.3 0.0 - 0.9 10*3/uL 01/07/2025 6:38 PM EDT [facility] Eosinophils Absolute 0.1 0.0 - 0.4 10*3/uL 01/07/2025 6:38 PM EDT [facility] Basophils Absolute 0.0 0.0 - 0.2 10*3/uL 01/07/2025 6:38 PM EDT [facility] Differential Type AUTOMATED DIFFERENTIAL 01/07/2025 6:38 PM EDT [facility] Blood Venous blood / Unknown 01/07/2025 4:55 PM EDT 01/07/2025 6:25 PM EDT us Kymberly Gilmore MD LAB BLOOD ORDERABLES Final Res ult [facility] [address] [place] [address], [place] * (ABNORMAL) Basic Metabolic Panel (01/07/2025 4:55 PM EDT) SODIUM 137 134 - 146 mmol/L 01/07/2025 6:46 PM EDT [facility] POTASSIUM 3.0(L) 3.5 - 5.0 mmol/L 01/07/2025 6:46 PM EDT [facility] CHLORIDE 101 98 - 109 mmol/L 01/07/2025 6:46 PM EDT [facility] CARBON DIOXIDE 27 22 - 32 mmol/L 01/07/2025 6:46 PM EDT [facility] ANION GAP 9 5 - 15 mmol/L 01/07/2025 6:46 PM EDT [facility] BLOOD UREA NITROGEN <5(L) 5 - 23 mg/dL 01/07/2025 6:46 PM EDT [facility] CREATININE 0.38(L) 0.40 - 1.00 mg/dL 01/07/2025 6:46 PM EDT [facility] Comment:METHOD TRACEABLE TO IDMS STANDARD GLUCOSE 99 65 - 99 mg/dL 01/07/2025 6:46 PM EDT [facility] CALCIUM 8.1(L) 8.5 - 10.5 mg/dL 01/07/2025 6:46 PM EDT [facility] EGFR Non-Race Dependent >90 >=60 ml/min/1.7 3sq.m 01/07/2025 6:46 PM EDT [facility] Comment: eGFR not reported due to non-numeric value for Creatinine. Reported eGFR is based on the CKD-EPI 2020 equation that does not use a race coefficient. Blood Venous blood / Unknown 01/07/2025 4:55 PM EDT 01/07/2025 6:25 PM EDT us Kymberly Gilmore MD LAB BLOOD ORDERABLES Final Res ult [facility] [address] [place] [address] documented in this encounter Visit Diagnoses Diagnosis Hypo-osmolality and hyponatremia documented in this encounter Care Teams Labelling Machine Operator Relationship Specialty Start Date End Date Kymberly Gilmore MD [address] [place] [phone] PCP - General Family Medicine 02/03/19 documented as of this encounter
--- OUTSIDE RECORDS SUMMARY | 2025-01-22 10:23 | XMS_ITS | Encounter Summary ---
Author Organization [facility] Address [address], [address] [place] [address] Care Team Providers Care Certified Medical Coder Name Role Phone Kymberly Gilmore MD Primary Care Provider [phone] Encounter Details Date Type Department Care Team (Late st Contact Info) Description 12/29/2023 Direct Admit Orders [facility] [address] [place] [address] [phone] Betty Richards MD [address] [place] [address] [phone] Social History Tobacco Use Types Packs/Day Years Used Date Smoking Tobacco: Every Day Cigarettes 1 10.7 Started: 2014 Smokeless Tobacco: Never Comments:started at age 13 f or 2 yrs, quit then started back in 2014 Alcohol Use Standard Drinks/Week Comments No 0 (1 standard drink = 0.6 oz pur e alcohol) [facility] Utilities Answer Date Recorded In the past 12 months has e electric, gas, oil, or water [employer] threatened to shut off services in your [...] place to sleep or slept in a residential (including now)? No 12/30/2023 Food Insecurity Answer [...] documented as of this encounter Care Teams Certified Medical Coder Relationship Specialty Start Date End Date Kymberly Gilmore MD PCP - General Family Medicine 10/18/17 documented as of this encounter
--- OUTSIDE RECORDS SUMMARY | 2025-01-22 10:23 | XMS_ITS | Clinical Summary ---
Author Organization [facility] Address [address] [place] [address] Care Team Providers Care Plastic Installer Name Role Phone Kymberly Gilmore MD Primary Care Provider [phone] Allergies Active Allergy Reactions Criticality Noted Date [...] original vaccine, a ge 12+ yr, monovalent ([employer] - PURPLE TOP) 08/22/2020,08/02/2020 hepatitis B (HepB) [...] N ot on file 05/03/2020 Data from: https://www.[email or web address].medicine.[email or web address].edu/. Last address used for calculation Not [...] 11/08/2020, 0 10/11/2020, 02/06/2018, Additional history exists Lipid Screening 02/04/2024 02/03/2019 Influenza Vaccine (#1) [...] METABOLIC PANEL (11/08/2020 1:52 PM EDT) Pathologist [facility] Protein, Total 6.9 6.3 - 8.0 g/dL 11/08/2020 2:33 PM EDT [facility] Albumin 4.4 3.9 - 4.9 g/dL 11/08/2020 2:33 PM EDT [facility] Calcium 9.7 8.5 - 10.2 mg/dL 11/08/2020 2:33 PM EDT [facility] Bilirubin, Total <0.2(L) 0.2 - 1.3 mg/dL 11/08/2020 2:33 PM EDT [facility] Alkaline Phosphatase 111 34 - 123 U/L 11/08/2020 2:33 PM EDT [facility] AST 17 13 - 35 U/L 11/08/2020 2:33 PM EDT [facility] Glucose 104(H) 74 - 99 mg/dL 11/08/2020 2:33 PM EDT [facility] Comment: The [place] Diabetes Association (ADA) provides guidance for cutoff [...] Standards of Medical Care in Diabetes 2016, [place] Diabetes Association. Diabetes Care. 2016.39(Suppl 1). BUN 9 7 - 21 mg/dL 11/08/2020 2:33 PM EDT [facility] Creatinine 0.63 0.58 - 0.96 mg/dL 11/08/2020 2:33 PM EDT [facility] Sodium 133(L) 136 - 144 mmol/L 11/08/2020 2:33 PM EDT [facility] Potassium 4.4 3.7 - 5.1 mmol/L 11/08/2020 2:33 PM EDT [facility] Chloride 100 97 - 105 mmol/L 11/08/2020 2:33 PM EDT [facility] CO2 26 22 - 30 mmol/L 11/08/2020 2:33 PM EDT [facility] Anion Gap 7(L) 9 - 18 mmol/L 11/08/2020 2:33 PM EDT [facility] ALT 7 7 - 38 U/L 11/08/2020 2:33 PM EDT [facility] eGFR- >60 11/08/2020 2:33 PM EDT [facility] eGFR-All Other Races >60 . 11/08/2020 2:33 PM EDT [facility] Comment: eGFR (Estimated GFR) Units of measure: [...] 11/08/2020 1:54 PM EDT us Ariana Baum SCHOOL AGE LEAD TEACHER.MANUFACTURER LABORATORY Final Re sult [address] [address] [facility] [address] [place], [place] from Last 3 Months or Most Recently Relevant to Health Maintenance Insurance [employer] PPO TPA Care Teams Plastic Installer Relationship Specialty Start Date End Date Kymberly Gilmore MD [address] [place] [address] PCP - General Family Medicine 10/11/20
--- OUTSIDE RECORDS SUMMARY | 2025-01-22 10:23 | XMS_ITS | Clinical Summary ---
Author Organization [facility] Address [address] [place] [address] Phone Care Team Providers Care Timber Sprinkler Name Role Phone Kymberly Gilmore MD Primary Care Provider [phone] Yossi Hunter MD Unavailable [phone] Allergies Active Allergy Reactions Criticality Noted Date [...] on patient's age to complete this topic Hepatitis A Vaccines Aged Out No long [...] patient's age to complete this topic Insurance [address] [place] [address] MEDICARE PART A AND B [facility] MEDICARE PART A AND B Care Teams Timber Sprinkler Relationship Specialty Start Date End Date Kymberly Gilmore MD [address] [place] [address] PCP - General Family Medicine 05/27/23 Yossi Hunter MD [address] [facility] [address] [place] [address] Junior Accounting Clerk Cardiology 06/17/23
--- OUTSIDE RECORDS SUMMARY | 2025-01-22 10:23 | XMS_ITS | Clinical Summary ---
Author Organization [facility] Address [address], [address] [place] [address] Care Team Providers Care Grading Clerk Name Role Phone Kymberly Gilmore MD Primary Care Provider [phone] Allergies Active Allergy Reactions Criticality Noted Date [...] mouth at bedtime Active Cholecalciferol (VITAMIN D3) 13908 units CAPS Take by mouth Twice a [...] migh t be different from the original. [facility] Problem Noted Date Diagnosed Date [...] Used Date Smoking Tobacco: Former Cigarettes 1 10.7 S tarted: 2014 Smokeless Tobacco: Never Tobacco Cessation:Counseling Given: Not Answered Comments:started at age 13 for 4 yrs, quit then started back in 2014 Alcohol Use Standard Drinks/Week Comments Yes 0 (1 standard drink = 0.6 oz pur e alcohol) socially [facility] Utilities Answer Date Recorded In the past 12 months has th e [employer], gas, oil, or water [employer] threatened to shut off services in your [...] place to sleep or slept in a longterm (including now)? No 12/30/2023 Housing Stability Vital Sign Answer Jose e Recorded In the last 12 months, was t here a time when you were not able to pay the mortgage or rent on time? No 06/09/2024 In the past 12 months, how m any times have you moved where you were living? 0 06/09/2024 At any time in the past 12 m [facility], were you homeless or living in a longterm (including now)? No 06/09/2024 Food Insecurity Answer [...] 2008 FIT/FOBT: Average risk 2013 Fecal-DNA (Cologuard): [place] ge risk 2013 Sigmoidoscopy/CT colonography 2013 Pneumococcal [...] this topic Medical Devices Implanted Type Area Leveling Machine Operator Device Identifier Shelf Expiration Date Model / Serial / Lot Floseal Hemostat Matrx 5ml Needle Free Implanted:Qty : 1 on 02/09/2018 by Ronal Matos MD at [facility] Bone/Gr aft/Tis bladimir/Hum an/Synt h N/A: Spine Lumbar Wannyi BETHEL-PMM 06/10/2019 [id number] / / [id number] Clip Braided 360 Catheter Resolution Ultra - [id number] Implanted:Qty : 1 on 01/07/2024 by Ricki De La Cruz MD at [facility] N/A: Other [employer]- [id number] 07/22/2026 [id number] / / [id number] Description:Clip placed at G J junction Clip Hemostasis Mantis 2.8mm X 235cm - [id number] Implanted:Qty : 2 on 01/07/2024 by Ricki De La Cruz MD at [facility] N/A: Other [employer] [id number] 05/09/2026 [id number] / / [id number] Description:Clip placed at G J junction Allograft Bne Bridge 50x25 Mm 24 Cc Bioadapt - [id number] Implanted:Qty : 1 on 06/08/2024 by Jovana Guardado MD at [facility] N/A: Spine Lumbar [employer] 01/06/2027 [id number] / [id number] / [id number] Set Screw 5.5-6.0 - [id number] Implanted:Qty : 4 on 06/08/2024 by Jovana Guardado MD at [facility] N/A: Spine Lumbar [employer] [id number] / / Screw Poly Solid 6.5x40 - [id number] Implanted:Qty : 2 on 06/08/2024 by Jovana Guardado MD at [facility] N/A: Spine Lumbar [employer] [id number] / / Screw Poly Solid 6.5x45 - [id number] Implanted:Qty : 2 on 06/08/2024 by Jovana Guardado MD at [facility] N/A: Spine Lumbar [employer] [id number] / / Dhaval Ti Prebent 5.5x35 - [id number] Implanted:Qty : 2 on 06/08/2024 by Jovana Guardado MD at [facility] N/A: Spine Lumbar [employer] [id number] / / Insurance MEDICARE Member Subscriber Plan / Payer (Ef fective 2022-Present) Name:Candy Booth Relation to Subscriber:Self Name:Candy Booth Payer ID:Not on file Group ID:Not on file Type:Not on file Address: [address] MEDICARE MEDICARE Advance Directives Documents on File Type Date Recorded Patient Office Services Clerk Expl anation ACP-Advance Directive 10/19/2017 4:34 PM [...] 8:17 PM 10/19/2017 8:31 AM Care Teams Grading Clerk Relationship Specialty Start Date End Date Kymberly Gilmore MD PCP - General Family Medicine 10/18/17
--- OUTSIDE RECORDS SUMMARY | 2025-01-22 10:23 | XMS_ITS | Clinical Summary ---
Author Organization [facility] Address [address] [place] [address] Care Team Providers Care Supervisor Contact Lens Name Role Phone Kymberly Gilmore MD Primary Care Provider [phone] Allergies Active Allergy Reactions Criticality Noted Date [...] 3 Active cholecalciferol (Vitamin D-3) 1.25 MG (04740 UT) capsule Twice a Week 3 Active [...] 02/04/2020 02/03/2019, 02/03/2019 Influenza Vaccine (#1) 2025 05/13/2021 Insurance [facility] MEDICARE Care Teams Supervisor Contact Lens Relationship Specialty Start Date End Date Kymberly Gilmore MD PCP - General Family Medicine 10/22/23
--- OUTSIDE RECORDS SUMMARY | 2025-01-22 10:23 | XMS_ITS | Patient Health Record ---
Author Organization [facility] Address [address] [place] [address] Care Team Providers Care Dip Filler Name Role Phone Kymberly Mitchell M.D. Primary Care Provider Unavail able Jovana Holloway Unavailable [phone] Cat BURKETT, Bhupinder Unavailable Unavailab David Sosa Unavailable [phone] Ana Lilia Mcclain Unavailable [phone] Allergies No Known Allergies Results Component Value Reference Range Notes XR LUMBAR SPINE 1 VW Reviewed date:06/09/2024 03:29:49 PM Interpretation: Performing Lab: Notes/Report: MOBILE LATERAL LUMBAR SPINE: [facility] [address] [place], [place] [address], Original Ordering Provider: Rajeev PLASENCIA Provider Role: Ordering TYPE AND SCREEN CAPTURE Reviewed date:04/23/2024 09:16:02 AM Interpretation: Performing Lab: Notes/Report: [facility] Original Ordering Provider: Rajeev VILLALBA Provider Role: Ordering ABO CAPTURE O RH CAPTURE (2 D CLONES) NEG INDIRECT FADI CAPTURE NEG Performing Lab: see note [facility] - [facility] [address] [facility] [address] Bipin Patrick GFR, ESTIMATED, IOS Reviewed date:04/23/2024 09:16:02 AM [...] secretion. Performing Lab: see note [facility] - [facility] [address] [place] [address] [employer] POC ISTAT CHEM 8 AT IOS Reviewed date:04/23/2024 09:16:02 AM Interpretation: Performing Lab: Notes/Report: [facility] Original Ordering Provider: Rajeev VILLALBA Provider Role: Ordering IOS BUN WB ISTAT 5 8-26 mg/dl IOS CHLORIDE WB ISTAT 98 98-109 meq/l IOS GLUCOSE WB ISTAT 100 70-108 mg/dl IOS CREATININE WB ISTAT 0.6 0.6-1.3 mg/dl IOS POTASSIUM WB ISTAT 4.3 3.5-4.9 meq/l IOS SODIUM WB ISTAT 135 138-146 meq/l IOS TOTAL CO2 WB (ISTAT) 25 23-33 meq/l Surgery Scheduling (Not yet reviewed by provider) Interpretation: Performing Lab: Notes/Report: Primary Insurance Company: MEDICARE Surgeon/Assist: ST ROCHA/ALESIA OR DAVID Surgery Location: [facility] Surgery Date & Time: 06/08/24 @ 2:15PM Hosp arrival time day of: 12:15PM Surgery End Time: 4:15PM Procedure: L4-5 REVISION DECOMPRESSION WITH FUSION Special Equipment: SSEP, PRONE, TRINIDAD TABLE, SURGALIGN Diagnosis: M48.061 FORAMINAL STENOSIS Admission Type: OUTPATIENT Anesthesia Type/CPNB: GENERAL Bed 72 HOURS Post-op Appointment Date: 07/30/24 @ 10:30AM Lab Location: [facility] Lab Date/Time: ON OR BEFORE 03/29/24 Faro Dealer: RAJWINDER Moran Physician: DR MITCHELL 04/07/24 @ 10AM Clearance Appt Date/T DR QUAN SHARPE 04/02/24 @ 9:30AM History & Physical Appointment Date/: [facility]R LUMBAR SPINE 1 VW Reviewed date:06/09/2024 03:29:49 PM Interpretation: Performing Lab: Notes/Report: MOBILE LATERAL LUMBAR SPINE: [place] [address], Original Ordering Provider: Rajeev PLASENCIA Provider Role: Ordering EKG 12-LEAD Reviewed date:06/09/2024 03:29:49 PM Interpretation: Performing Lab: Notes/Report: [address] [place] [address], Original Ordering Provider: Rajeev ARZOLA Provider Role: Attending EKG 12-LEAD Reviewed date:06/16/2024 11:01:31 AM Interpretation: Performing Lab: Notes/Report: [address] [place] [address], Original Ordering Provider: Rajeev ARZOLA Provider Role: Attending XR WRIST LEFT STANDARD Reviewed date:06/14/2024 08:57:56 AM Interpretation: Performing Lab: Notes/Report: XR WRIST LEFT (MIN 3 VIEWS) [place] [address], Original Ordering Provider: Rajeev GRIFFIN Provider Role: Ordering Reason For Referral Reason NO AUTH REQ..............................06/08/24...............................MCR L4-5 REVISION DECOMPRESSION WITH FUSION 36432, 04585, 40963, 42614, 58775 Diagnosis 1 Lumbar radiculopathy (M54.16) Diagnosis 2 Foraminal stenosis of lumbar region (M48 .061) Referral Organizati on [facility] Referring Provider First Name Jovana Referring Provider Last Name St Rocha Referring Provider Speciality Orthopedic Surgery Referred Organizati on [facility] Outpatient Referred Address [address] [place] [id number], Procedure 1 Arthrodesis, posterior lumbar, 1 lumbar level (56354) Procedure 2 Laminectomy, facetectomy and foraminotom y single lumbar (81390) Procedure 3 Laminectomy, facetectomy and foraminotom y additional vertebral segment (70477) Procedure 4 Posterior non-segmental instrumentation (99211) Procedure 5 Autograft for spine surgery only; local obtained from same incision (85269) General Notes Rajwinder Yang 03/17/2024 03:10:31 PM [...] THE MEDICARE INPATIENT LIST. PLEASE UPDATE WITH [facility]., Rajwinder Yang 05/31/2024 08:50:58 AM >CHANGED TO OUTPATIENT, Kadi Leblanc 05/31/2024 09:01:06 AM > THANK YOU, FAXED TO [facility]. Referral Priority Stat Medications Medication SIG [...] W/U Status Risk Notes Problem Lumbar radiculopathy (201828239) Lumbar radiculopathy (M54.16) Active confirmed Problem 800189761 Arthrodesis status (Z98.1) Active confirmed Problem 140873844509417 Left foot drop (M21.372) Active confirmed Problem Displacement of lumbar intervertebral disc without myelopathy (67545187) Bulging of lumbar intervertebral disc (M51.26) Active confirmed Problem Spinal stenosis of lumbar region (13759567) Foraminal stenosis of lumbar region (M48.061) Active confirmed Problem 372911176 Encounter for other orthopedic aftercare (Z47.89) Active confirmed Problem Other intervertebral disc degeneration, 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) Active confirmed Vital Signs Height 5'7 in 04/15/2024 Weight 190 lbs 04/15/2024 BMI 29.75 04/15/2024 Encounters Encounter Location Date Provider Diagnosis [facility] [address] [facility] [place] [address] [facility] Bulging of lumbar intervertebral disc M51.26 ; Foraminal stenosis of lumbar region M48.061 and Lumbar radiculopathy M54.16 [facility] [address] [place] [address] 04/15/2024 David Hardy Lumbar radiculopathy M54.16 ; Bulging of lumbar intervertebral disc M51.26 and Foraminal stenosis of lumbar region M48.061 [facility] Outpatient [address] [place] [id number] 06/08/2024 [facility] Foraminal stenosis o f lumbar region M48.061 ; Bulging of lumbar intervertebral disc M51.26 and Other intervertebral disc degeneration, lumbar region with discogenic back pain and lower extremity pain M51.362 [facility] [address] [place] [address] 08/13/2024 Ana Lilia Mcclain Encounter for other [...] Date Lumbar spine, 4v flex ext - 45680 2023 Lumbar spine 2v ap and lat - 80433 08/13 Surgery Scheduling 03/17/2024 DME - Lumbar Support, Surgical OTS 04/15 Type and Cross Blood 2 units 04/15/2024 Future Test Test Name Order Date Chest 2 views - 78406 03/17/2024 CBC 03/17/2024 PT/PTT 03/17/2024 BMP 03/17/2024 MRSA (Bilateral Nares) PCR 03/17/2024 EKG 03/17/2024 Insurance Providers Payer Name Payer Address Payer Phone Subscriber Number Group Number Insured Name Patient Relationship to Insured Coverage Start Date Coverage End Date [place] [address] [place] [address] [id number] JORGE ORTEGA Spouse - patient is the spouse of the insured [place] [address] [id number] HELIO JIMENEZ RASHID Self - patient is the insured [facility] [address] [address] [place] [address] [id number] HELIO JIMENEZ JORGE Spouse - patient is [...]
--- OUTSIDE RECORDS SUMMARY | 2025-01-22 10:23 | XMS_ITS | Patient Health Record ---
Author Organization [facility] Address [address] [place] [address] Care Team Providers Care Orthotics Technician Name Role Phone Kymberly Gilmore Primary Care Provider Abhijit Zhang [phone] Results Component Value Reference Range Notes XR FOOT DELFINO 2V (Not yet revi ewed by provider) Interpretation: Performing Lab: Notes/Report: Source Facility: [place] [address] XRay Report Signed Patient: RASHID BOOTH MR#: [id number] : 1970 Acct:[id number] Age/Sex: 53 / F ADM Date: 06/01/24 Loc: [facility] Attending Dr: Abhijit Weeks D.P.M. Ordering Physician: Abhijit Weeks D.P.M. Date of Service: 06/01/24 Procedure(s): XR foot DELFINO 2V Accession Number(s): [id number] cc: Kymberly Gilmore M.D.; Abhijit Weeks D.P.M. [facility] [place] [address] Patient Name: RASHID BOOTH MRN: [id number] date: 1970 Sex: F Assigned Patient Location: [facility] Current Patient Location: RAD Accession/Order Number: [id number] Exam Date: 06/01/2024 15:20 Report Date: 06/02/2024 [...] M.D. Signed By: 06/02/241334 DD/ 32 TD/TT: Diamond Cleaner: [place] [address] XRay Report Signed Patient: RASHID BOOTH MR#: [id number] : 1970 Acct:[id number] Age/Sex: 53 / F ADM Date: 06/01/24 Loc: [facility] Attending Dr: Abhijit Weeks D.P.M. Ordering Physician: Abhijit Weeks D.P.M. Date of Service: 06/01/24 Procedure(s): XR foot DELFINO 2V Accession Number(s): [id number] cc: Kymberly Gilmore; Abhijit Weeks D.P.M. [place] [address] Patient Name: RASHID BOOTH MRN: [id number] date: 1970 Sex: F Assigned Patient Location: RAD Current Patient Location: RAD Accession/Order Numb er: [id number] Exam Date: 06/01/2024 15:20 Report Date: 06/02/2024 [...] M.D. Signed By: 06/02/241334 DD/ 32 TD/TT: Diamond Cleaner: XR ankle DELFINO 2V (Not yet rev iewed by provider) Interpretation: Performing Lab: Notes/Report: Source Facility: [place] [address] XRay Report Signed Patient: RASHID BOOTH MR#: [id number] : 1970 Acct:[id number] Age/Sex: 53 / F ADM Date: 06/01/24 Loc: RAD Attending Dr: Abhijit Weeks D.P.M. Ordering Physician: Abhijit Weeks D.P.M. Date of Service: 06/01/24 Procedure(s): XR ankle DELFINO 2V Accession Number(s): [id number] cc: Kymberly Gilmore M.D.; Abhijit Weeks D.P.M. [place] [address] Patient Name: RASHID BOOTH MRN: [id number] date: 1970 Sex: F Assigned Patient Location: [facility] Current Patient Location: RAD Accession/Order Number: [id number] Exam Date: 06/01/2024 15:20 Report Date: 06/02/2024 13:33 At the request of: ABHIJIT WEEKS Procedure: XR ankle DELFINO 2V EXAMINATION: XR foot DEFLINO 2V, XR ankle DELFINO 2V HISTORY: BILATERAL [...] M.D. Signed By: 06/02/241334 DD/ 133 TD/TT: Diamond Cleaner: [place] [address] XRay Report Signed Patient: RASHID BOOTH MR#: [id number] : 1970 Acct:[id number] Age/Sex: 53 / F ADM Date: 06/01/24 Loc: RAD Attending Dr: Abhijit Weeks D.P.M. Ordering Physician: Abhijit Weeks D.P.M. Date of Service: 06/01/24 Procedure(s): XR ankle DLEFINO 2V Accession Number(s): [id number] cc: Kymberly Gilmore; Abhijit Weeks D.P.M. [facility] [place] [address] Patient Name: RASHID BOOTH MRN: [id number] date: 1970 Sex: F Assigned Patient Location: [facility] Current Patient Location: [facility] Accession/Order Numb er: [id number] Exam Date: 06/01/2024 15:20 Report Date: 06/02/2024 [...] Jones M.D. 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) Active confirmed Problem Arthralgia of the ankle and/or foot (608724059) Pain in left ankle and joints of left foot (M25.572) Active confirmed Problem Pain in right foot (163016397054840) Pain in right foot (M79.671) Active confirmed Encounters Encounter Location Date Provider Diagnosis [facility] ([facility] [address] [place] [address] [place] [address] 06/01/2024 Abhijit Weeks Pain in left ankle [...] ACCESS PPO PLUS LOCAL PLAN [address] [place] [address] [id number] Phillip Rashid guillen Self - patient is the insured [place] [address] [place] [address] [id number] Phillip Rashid guillen Self - patient is the insured 3
--- OUTSIDE RECORDS SUMMARY | 2025-01-22 10:25 | XMS_ITS | CCD ---
Author Organization [facility] Care Team Providers Care Mechanical Engineering Technologist Name Role Phone REJI, RONAL H. Unavailable Unavailable MANDO MAUREEN Unavailable Unavailable REJI, RONAL H. Unavailable Unavailable REJI, RONAL H. Unavailable Unavailable REJI, RONAL H. Unavailable Unavailable MAUREEN MITCHELL Unavailable Unavailable MAUREEN MITCHELL Primary Care Physician MAUREEN MITCHELL Referring Unavailable MAUREEN MITCHELL Primary Care Unavailable NEW PARKINSON Attending Unavailable NEW PARKINSON Admitting Unavailable NILL, DR ALEXANDRA Attending Unavailable NILL, DR ALEXANDRA Admitting Unavailable WEST, DR TUYET Linn Consulting Unavailable MITCHELL, DR MAUREEN Morales Primary Care Unavailable NILL, DR ALEXANDRA Consulting Unavailable REINECK, DR CHONG Schmitz Attending Unavailabl e REINECK, DR CHONG Schmitz Consulting Unavailabl e REINECK, DR CHONG Schmitz Admitting Unavailabl e MITCHELL, DR MAUREEN Morales [...] Provider Maureen Mitchell MD Primary Care Provider [phone] Yossi Hunter MD Unavailable DOROTHY SANTORO Attending Unavailable DOROTHY SANTORO Referring Unavailable DOROTHY SANTORO Referring Unavailable WANDA, DARLENE A Attending Unavailable WANDA, DARLENE A Referring Unavailable WANDA, DARLENE A Referring Unavailable ARNOLD, TARUN Admitting Unavailable NBA OSCAR Referring Unavailable MITCHELL, MAUREEN Primary Care Unavailable TL SALAZAR Consulting Unavailable YAMILET MALONEY Attending Unavailable MARGARET GREER Consulting Unavailable MARGARET SULLIVAN Consulting Unavailable OMAR HOOVER Consulting Unavailable ISELA HENSLEY Consulting Unavailable MASHALEH I, AGUILAAMMAD Consulting Unavailable THUMMALAPALLY, JONNAHEETH Consulting Unavaila ble FAWWAGarett, NEWELL Referring Unavailable MITCHELL, MAUREEN Primary Care Unavailable GENNA HARVEYZ Consulting Unavailable KELI RABAGO Attending Unavailable AVASTHI, CHRISTOPHER Admitting Unavailable MALLY HOPPER Consulting Unavailable MICHAEL ARELLANO Consulting Unavailabl e MARGARET SULLIVAN Consulting Unavailable AVASTHI, CHRISTOPHER Consulting Unavailable Cat BURKETT, Bhupinder Toth Attending Unavailable ABIOSE, YOSSI K Referring Unavailable MITCHELL, MAUREEN E Primary Care Unavailable ABIOSE, YOSSI K Referring Unavailable MITCHELL, MAUREEN E Primary Care Unavailable Mitchell, Maureen E Primary Care Unavailable Mitchell Maureen E Attending Unavailable Mitchell, Maureen E Admitting Unavailable ABIOSE, YOSSI K Attending Unavailable MITCHELL, MAUREEN E Primary Care Unavailable ABIOSE, YOSSI K Attending Unavailable MITCHELL, MAUREEN E Primary Care Unavailable ABIOSE, YOSSI K Attending Unavailable MITCHELL, MAUREEN E Primary Care Unavailable ABIOSE, YOSSI K Attending Unavailable MITCHELL, MAUREEN E Primary Care Unavailable Maureen Mitchell MD Attending Provider Maureen Mitchell MD Primary Care Provider CRISTOBAL, OLUREMI Consulting Unavailable BLANCA, SELVON F Attending Unavailable BLANCA, SELVON F Admitting Unavailable MITCHELL, MAUREEN Primary Care Unavailable Maureen Mitchell MD Primary Care Provider [phone] Thi Vidal APRN Attending Provider [phone] Isha Holley MD Attending Provider [phone] Jackson Mondragon MD Attending Provider [phone] Maureen Mitchell MD Attending Provider Alyssa Romo CMA Attending Provider Neli Sinclair Attending Unavailable MAUREEN MITCHELL Referring Unavailable Allergies Allergy Classification Reported Allergen(s) Allergy Type Date of Onset Reaction(s) Facility Acetaminophen (1 source) Acetaminophen Drug Allergy 09-22-19 [facility] Opioid Agonists (1 source) Codeine Drug Allergy 09-22-19 [facility] Sulfonamides (antibiotic) (1 source) Sulfonamides (Antibiotic) Drug Allergy 09-22-19 [facility] venlafaxine (1 source) venlafaxine Drug Allergy 09-22-19 [facility] (20 sources) Non-steroidal anti-inflammator y agent; Translations: [NSAIDs] Drug allergy Unknown (qualifier value) [facility] (3 sources) Sulfonamides (Antibiotic); Translations: [sulfa drugs] Drug allergy Unknown (qualifier value) General Surgery [place] (20 sources) venlafaxine; Translations: [venlafaxine] Drug Allergy 07-16-19 19 Unknown (qualifier value), Unknown General Surgery [facility] (4 sources) NSAIDs; Translations: [NSAIDS (NON-STEROIDAL ANTI-INFLAMMATOR Y DRUG)] Drug allergy (disorder) 09-06-19 16 [facility] (1 source) Tylenol-Codeine #3 Drug allergy (disorder) 01-23-20 16 [facility] (20 sources) Acetaminophen / Codeine Drug Allergy Unknown [facility] Other (18 sources) Sulfonamides (Antibiotic) Drug allergy Unknown [facility] Other (20 sources) Codeine; Translations: [CODEINE] Drug Allergy 06-09-19 14 Other, Other (See Comments) [facility] (16 sources) Codeine Drug Allergy Unknown [facility] Other (4 sources) patient allergy list reviewed by nurse or physicia Propensity to adverse reactions 06-09-19 14 Comment:Done [facility] Other (4 sources) Allergies Reconciled Propensity to adverse reactions Unknown [facility] Other (16 sources) Sulf-10 Drug allergy Unknown [facility] Other (12 sources) cow milk allergenic extract; Translations: [MILK] Drug Allergy 12-11-19 23 GI Upset, Other (See Comments) [facility] Work Phone: (10 sources) Non-steroidal anti-inflammator y agent Drug Intolerance 09-06-19 16 Other, Other (See Comments) [facility] Work Phone: (17 sources) Acetaminophen; Translations: [acetaminophen] Drug Allergy 08-26-19 24 Hives, decreased respirations while sleeping [facility] (17 sources) Sulfonamides (Antibiotic); Translations: [Sulfa (Sulfonamide Antibiotics)] Allergy to substance 08-26-19 24 Hives [facility] (18 sources) NSAIDS (Non-Steroidal Anti-Inflamma; Translations: [NSAIDS (Non-Steroidal Anti-Inflamma] Allergy to substance 08-26-19 24 bleeding [facility] (2 sources) VENLAFAXINE ANALOGUES; Translations: [VENLAFAXINE ANALOGUES] Propensity to adverse reactions to drug (disorder) 10-06-19 21 [facility] (1 source) Codeine Drug Allergy 04-29-20 24 [facility] (1 source) venlafaxine Drug Allergy 04-29-20 24 [facility] Rep[facility] (2 sources) Acetaminophen / Codeine Drug Allergy 09-06-19 16 Other (See Comments) [facility] Medications Current Medications Medication Drug Class(es) Dates Sig (Normalized) Sig (Original) ALPRAZolam 0.5 mg oral tablet (20 sources) Benzodiazepine Start: 01-06-2025 take 1 tablet by mouth twice daily as needed for anxiety Start: 12-30-2024 End: 01-06-2025 take 1 tablet by mouth every four hours as needed for anxiety Alprazolam 0.5 mg tablet Discontinued 0.5 MG PO Every 4 hours as needed for anxiety December 30, 2024 12:00am January 06, 2025 4:34pm Start: 12-08-2024 End: 12-30-2024 take 1 tablet by mouth twice daily as needed for anxiety Alprazolam 0.5 mg tablet Discontinued 0.5 MG PO Twice daily as needed for anxiety 14 December 22, 2024 8:24am December 30, 2024 12:45pm Start: 01-13-2024 End: 12-08-2024 take 1 tablet by mouth four times daily as needed for anxiety Alprazolam 0.5 mg tablet Discontinued 0.5 MG PO Four times daily as needed for anxiety 60 May 28, 2024 10:44am July 13, 2024 3:03pm Start: 12-30-2023 take 0.5 mg by mouth four times daily as needed 0.5 mg, Oral, 4 TIMES DAILY PRN, Starting on Fri12/30/23 at 2326, Until Discontinued, Anxiety Start: 07-23-2023 End: 07-23-2023 take 1 tablet by mouth four times daily Alprazolam 0.5 mg tablet Discontinued 0.5 MG PO Four times daily July 23, 2023 1:00am July 23, 2023 2:08pm Start: 05-22-2023 take 1 tablet by steve th once daily ALPRAZolam (Xanax) 0.5 mg tablet Take 1 tablet (0.5 mg) by mouth once daily. 0 05/22/2023 Active Start: 11-14-2021 End: 01-13-2024 take 1 tablet by mouth every four hours as needed for anxiety, then take 0.5 tablet by mouth every four hours as needed for anxiety, then take 5 tablets by mouth once daily as needed for anxiety Alprazolam 0.5 mg tablet Discontinued 0 PO Every 4 hours as needed for anxiety 75 December 11, 2023 4:43pm January 12, 2024 8:26am alternate 1 tab and 0.5 tab every 4h as needed, not to exceed 5 tabs/day amLODIPine 5 mg oral tablet (3 sources) Dihydropyridine Calcium Channel Archie Start: 01-04-2024 take 1 tablet by mouth once daily amLODIPine (NORVASC) 5 MG tablet Take 1 tablet by mouth daily 30 tablet 3 01/06/2024 Active bisacodyl 5 mg delayed release oral tablet (2 sources) Stimulant Laxative Start: 06-08-2024 Start: 06-08-2024 cyclobenzaprine hydrochloride 10 mg oral tablet (1 source) Muscle Relaxant Start: 06-08-2024 ferrous sulfate 325 mg delayed release oral tablet (2 sources) Start: 10-20-2017 take 1 tablet by mouth twice daily at mealtime ferrous sulfate 325 (65 Fe) MG EC tablet Take 1 tablet by mouth 2 times daily (with meals) 90 tablet 1 10/20/2017 Active magnesium hydroxide 80 mg/ml oral suspension (1 source) Start: 06-08-2024 24 hr metoprolol succinate 50 mg extended release oral tablet (20 sources) beta-Adrenergic Archie Start: 12-13-2024 take 2 tablets by mouth twice daily Start: 05-07-2024 End: 05-07-2025 take 1 tablet by mouth once daily Metoprolol Succinate 50 mg tablet extended release 24 hr Discontinued 50 MG PO daily October 20, 2024 12:00am December 13, 2024 10:19am Start: 04-07-2024 End: 04-07-2025 take 1 tablet by mouth once daily metoprolol succinate XL (Toprol-XL) 25 mg 24 hr tablet Indications: Essential hypertension Take 1 tablet (25 mg) by mouth once daily. Do not crush or chew. 90 tablet 3 04/07/2024 05/07/2024 Discontinued (Therapy completed) Start: 09-12-2023 End: 01-20-2024 take 1 tablet by mouth every twenty-four hours Metoprolol Succinate 25 mg tablet extended release 24 hr Discontinued 25 MG PO September 12, 2023 12:00am January 20, 2024 2:05pm Start: 07-15-2023 End: 07-15-2023 metoprolol tartrate (Lopress or) injection 10 mg Start: 07-15-2023 End: 07-15-2023 metoprolol tartrate (Lopress or) injection 10 mg Start: 07-15-2023 End: 07-15-2023 metoprolol tartrate (Lopress or) injection 10 mg Start: 07-15-2023 End: 07-15-2023 metoprolol tartrate (Lopress or) injection 10 mg Start: 07-01-2023 End: 06-30-2024 take 1 tablet by mouth twice daily metoprolol succinate XL (Toprol-XL) 25 mg 24 hr tablet Indications: Essential hypertension Take 1 tablet (25 mg) by mouth 2 times a day. Do not crush or chew. 180 tablet 3 07/01/2023 04/07/2024 Discontinued (Reorder) ondansetron (ZOFRAN-ODT) disintegrating tablet 4 mg (1 source) Start: 06-08-2024 ondansetron (ZOFRAN-ODT) disintegrating tablet 4 mg pantoprazole (PROTONIX) 40 mg in sodium chloride (PF) 0.9 % 10 mL injection (1 source) Start: 01-04-2024 40 mg, IntraVE Nous, EVERY 12 HOURS, First dose on 01/04/24 at 2000, Reconstitute each 40 mg vial with 10 mL of 0.9% sodium chloride and administer each 40 mg vial over at least 2 minutes. polyethylene glycol 3350 32152 mg powder for oral solution (1 source) Osmotic Laxative Start: 06-08-2024 microencapsulated potassium chloride 20 meq extended release oral tablet (5 sources) Start: 01-13-2025 Start: 06-10-2024 potassium chlo ride (KLOR-CON M) extended release tablet 40 mEq Start: 01-05-2024 End: 06-08-2024 take 1 tablet by mouth once daily potassium chloride (KLOR-CON M) 20 MEQ extended release tablet Take 1 tablet by mouth daily for 7 days 7 tablet 01/05/2024 06/08/2024 Discontinued (LIST CLEANUP) Start: 01-02-2024 potassium chlo ride (KLOR-CON M) extended release tablet 40 mEq pregabalin 50 mg oral capsul e (20 sources) Start: 01-06-2025 take 1 capsule by [facility] twice daily Start: 12-30-2024 End: 01-06-2025 take 2 capsules by mouth three times daily Pregabalin 100 mg capsule Discontinued 200 MG PO Three times daily December 30, 2024 12:00am January 06, 2025 4:34pm Start: 12-27-2024 End: 12-30-2024 take 1 capsule by mouth twice daily Pregabalin 100 mg capsule Discontinued 100 MG PO Twice daily December 27, 2024 12:49pm December 30, 2024 12:45pm Start: 12-08-2024 End: 12-27-2024 take 1 capsule by mouth twice daily Pregabalin 50 mg capsule Discontinued 50 MG PO Twice daily December 20, 2024 9:50am December 27, 2024 12:49pm Start: 12-31-2023 take 200 mg by mouth three times daily 200 mg, Oral, 3 TIMES DAILY RESP, First dose on Fri12/31/23 at 0800, Until Discontinued Start: 11-14-2021 End: 12-08-2024 take 1 capsule by mouth three times daily Pregabalin 200 mg capsule Discontinued 200 MG PO Three times daily May 28, 2024 10:43am July 19, 2024 9:40am take 2 capsules by m outh three times daily pregabalin (LYRICA) 100 MG capsule Take 2 capsules by mouth three times daily. Active Lyrica Active sertraline 100 mg oral tablet (20 sources) Serotonin Reuptake Inhibitor Start: 06-08-2024 take 200 mg by mouth once daily 200 mg, Oral, Nightly, First dose on Fri06/08/24 at 2100, Until Discontinued Start: 05-14-2024 End: 09-03-2024 take 2 tablets by mouth once daily Start: 02-26-2024 take 200 mg by mouth once francine y Sertraline Active 200 MG PO Daily 60 February 26, 2024 2:27pm Start: 02-26-2024 End: 02-26-2024 take 2 tablets by mouth three times daily Sertraline 100 mg tablet Discontinued 200 MG PO Three times daily February 26, 2024 3:10pm February 26, 2024 3:27pm Start: 02-26-2024 End: 02-26-2024 take 200 mg by mouth three times daily Sertraline Discontinued 200 MG PO Three times daily February 26, 2024 2:10pm February 26, 2024 2:27pm Start: 12-30-2023 take 200 mg by mouth once francine y 200 mg, Oral, Nightly, First dose on Fri12/30/23 at 2345, Until Discontinued Start: 12-09-2023 End: 01-20-2024 take 2 tablets by mouth once daily Sertraline 100 mg tablet Discontinued 0 .ROUTE .COMPLEX 180 December 09, 2023 3:49pm January 20, 2024 2:06pm TAKE 2 TABLETS BY MOUTH ONCE DAILY Start: 05-02-2023 End: 02-26-2024 take 1 tablet by mouth once daily Sertraline 100 mg tablet Discontinued 100 MG PO Daily January 20, 2024 2:03pm February 26, 2024 3:11pm Start: 11-14-2021 End: 05-14-2024 take 2 tablets by mouth once daily Sertraline 100 mg tablet Discontinued 200 MG PO Daily 60 February 26, 2024 3:27pm May 14, 2024 10:41am Zoloft Active Vitamin D (20 sources) Vitamin D Active Completed/Discontinued Medications Medication Drug Class(es) Dates Sig (Normalized) Sig (Original) acetaminophen 325 mg oral tablet (2 sources) Start: 06-08-2024 650 mg, Oral, EVERY 6 HOURS PRN, Starting on Fri06/08/24 at 1909, Until Discontinued, Pain Mild (1-3), Fever, Maximum dose of acetaminophen is 4000 mg from all sources in 24 hours., Post-op Start: 12-30-2023 acetaminophen (TYLENOL) tablet 650 mg albuterol 0.833 mg/ml / ipratropium bromide 0.167 mg/ml inhalation solution (3 sources) Anticholinergic, beta2-Adrenergic Agonist Start: 12-13-2024 End: 12-30-2024 take 1 mL by inhalation twice daily as needed Ipratropium-Albuterol 0.5 mg-3 mg(2.5 mg base)/3 mL solution for nebulization Discontinued 3 ML INHALATION Twice daily as needed December 13, 2024 12:00am December 30, 2024 12:43pm Start: 12-31-2023 take 1 dose by inhal ation every four hours as needed 1 Dose, Inhalation, EVERY 4 HOURS PRN, Starting on Fri12/31/23 at 0631, Until Discontinued, Shortness of Breath, Initiate RT Bronchodilator Protocol: Yes - Inpatient Protocol aluminum & magnesium hydroxide-simethicone (MAALOX) 30 mL, lidocaine viscous hcl (XYLOCAINE) 5 mL (GI COCKTAIL) (1 source) Start: 12-30-2023 End: 12-31-2023 Oral, ONCE, On Fri12/30/23 at 2345, For 1 dose, Take 5 mL from lidocaine viscous 2% cup and mix with 30 mL of maalox and then administer. amitriptyline hydrochloride 75 mg oral tablet (20 sources) Tricyclic Antidepressant Start: 10-14-2023 End: 11-29-2024 take 1 tablet by mouth once daily at bedtime Amitriptyline 75 mg tablet Discontinued 75 MG PO Daily at bedtime November 10, 2023 3:38pm November 14, 2023 2:38pm Start: 09-22-2023 End: 10-14-2023 take 1 tablet by mouth at bedtime Amitriptyline 100 mg tablet Discontinued 0 .ROUTE .COMPLEX September 22, 2023 5:36pm October 14, 2023 4:47pm TAKE 1 TABLET BY MOUTH AT BEDTIME Start: 09-22-2023 End: 10-14-2023 take 1 tablet by mouth at bedtime Amitriptyline Discontinued 0 .ROUTE .COMPLEX September 22, 2023 4:36pm October 14, 2023 3:47pm TAKE 1 TABLET BY MOUTH AT BEDTIME Start: 09-22-2023 End: 10-14-2023 take 1 tablet by mouth at bedtime Amitriptyline Discontinued 0 .ROUTE .COMPLEX September 22, 2023 5:36pm October 14, 2023 4:47pm TAKE 1 TABLET BY MOUTH AT BEDTIME Start: 11-14-2021 End: 09-22-2023 take 1 tablet by mouth once daily at bedtime Amitriptyline 100 mg tablet Discontinued 1 TAB PO Daily at bedtime August 19, 2023 12:00am September 22, 2023 5:36pm FreeTextSig: TAKE 1 TABLET BY MOUTH AT BEDTIME; Note: Source Status: Taking; Refills: 3; Qty: 30 Tablet; Provider: Mando Traylor ( ) Start: 01-18-2021 amitriptyline (Elavil) 75 mg tablet Take 100 mg by mouth once daily at bedtime. 01/18/2021 Active aspirin 325 mg oral tablet (2 sources) Platelet Aggregation Inhibitor, Nonsteroidal Anti-inflammatory Drug Start: 12-13-2024 End: 12-30-2024 take 1 tablet by mouth once daily Aspirin 325 mg tablet Discontinued 325 MG PO Daily December 13, 2024 12:00am December 30, 2024 12:42pm atenolol 100 mg oral tablet (6 sources) beta-Adrenergic Archie Start: 07-11-2023 End: 05-07-2024 atenolol (Tenormin) 100 mg tablet Indications: Essential hypertension Take one tablet two hours before testing. 1 tablet 07/11/2023 05/07/2024 Discontinued (Med List Cleanup) benzonatate 100 mg oral capsule (1 source) Non-narcotic Antitussive Start: 12-31-2023 take 200 mg by mouth three times daily as needed 200 mg, Oral, 3 TIMES DAILY PRN, Starting on Fri12/31/23 at 0631, Until Discontinued, Cough carisoprodol 350 mg oral tablet (1 source) Muscle Relaxant End: 01-05-2024 take 1 tablet by mouth four times daily as needed for muscle spasms carisoprodol (SOMA) 350 MG tablet Take 350 mg by mouth 4 times daily as needed for Muscle spasms.. 01/05/2024 Discontinued (Stop Taking at Discharge) carvedilol 6.25 mg oral tablet (20 sources) alpha-Adrenergic Archie, beta-Adrenergic Archie Start: 12-31-2023 End: 02-26-2024 take 1 tablet by mouth twice daily Carvedilol 6.25 mg tablet Discontinued 6.25 MG PO Twice daily January 20, 2024 12:00am February 26, 2024 3:08pm Start: 05-27-2023 End: 05-26-2024 take 3.125 mg by mouth twice daily at mealtime 3.125 mg, Oral, 2 TIMES DAILY WITH MEALS, First dose on Fri12/31/23 at 0800, Until Discontinued, Hold if SBP less than 110, heart rate less than 55 Administer with food to minimize the risk of orthostatic hypotension Coreg Not-Taking ceFAZolin (ANCEF) 2,000 mg in sterile water 20 mL IV syringe (1 source) Start: 06-08-2024 End: 06-09-2024 2,000 mg, IntraVENous, EVERY 8 HOURS, 2 doses, First dose on Fri06/08/24 at 2300, Last dose on Fri06/09/24 at 0700, Antimicrobial Indications: Surgical Prophylaxis, Administer over 5 mins. Reconstitute 2 g vial with 20 mL Sterile Water. Withdraw entire contents., Post-op cephalexin 500 mg oral capsule (10 sources) Cephalosporin Antibacterial Start: 01-30-2024 End: 02-26-2024 take 1 capsule by mouth twice daily Cephalexin 500 mg capsule Discontinued 500 MG PO Twice daily 14 7 Daniella 6th, 2024 12:00am February 26, 2024 3:08pm cholecalciferol 1.25 mg oral capsule (20 sources) Vitamin D Start: 07-23-2023 End: 09-23-2023 take 1 capsule by mouth two times weekly Cholecalciferol (Vitamin D3) 1,250 mcg (50,000 unit) capsule Discontinued 1250 MCG PO Twice a Week July 24, 2023 9:40am September 23, 2023 11:41am Start: 03-10-2023 take 1 capsule by [facility] two times weekly cholecalciferol (Vitamin D-3) 50,000 unit capsule Take 1 capsule (50,000 Units) by mouth 2 times a week. 03/10/2023 Active take 1 capsule by [facility] two times weekly Vitamin D3 1.25 MG (08915 UT) TAKE 1 CAPSULE BY MOUTH TWICE A WEEK for 85 Active ciprofloxacin 250 mg oral tablet (12 sources) Quinolone Antimicrobial Start: 04-30-2024 End: 07-27-2024 take 1 tablet by mouth twice daily Ciprofloxacin Hcl 250 mg tablet Discontinued 250 MG PO Twice daily April 30, 2024 1:00am July 27, 2024 5:12pm Start: 11-14-2022 Ciprofloxacin HCl 0.3 % 1 application into the lower eyelid of affected eye Ophthalmic tid for 5 day(s) Oct, Active Start: 11-14-2022 clindamycin 150 mg oral capsule (11 sources) Lincosamide Antibacterial Start: 12-18-2023 End: 01-20-2024 take 1 capsule by mouth three times daily Clindamycin Hcl 150 mg capsule Discontinued 150 MG PO Three times daily December 18, 2023 12:00am January 20, 2024 2:06pm docusate sodium 50 mg / sennosides, custodial 8.6 mg oral tablet (3 sources) Start: 12-13-2024 End: 12-30-2024 take 1 tablet by mouth twice daily Sennosides-Docusat e Sodium 8.6-50 mg tablet Discontinued 1 TAB-CAP PO Twice daily December 13, 2024 12:00am December 30, 2024 12:45pm Start: 06-08-2024 take 1 tablet by [facility] twice daily 1 tablet, Oral, 2 TIMES DAILY, First dose on Fri06/08/24 at 2100, Until Discontinued, Post-op eletriptan 40 mg oral tablet (20 sources) Serotonin-1b and Serotonin-1d Receptor Agonist Start: 04-01-2023 End: 12-25-2024 Eletriptan 40 mg tablet Discontinued 40 MG PO . NEEDED November 10, 2023 4:40pm February 21, 2024 7:36am Start: 11-14-2021 take 1 tablet by mouth once Re lpax 40 mg Tab 40 mg = 1 tab(s), Oral, Once, Refills(s) 0 Start Date: 11/14/21 Status: Ordered Repeat number: 1 Relpax Not-Takin g 2 ml fentaNYL 0.05 mg/ml injection (5 sources) Opioid Agonist Start: 06-08-2024 End: 06-08-2024 1 dose, Starting on Fri06/08/24 at 1748, Until Fri06/08/24 at 1747, Thi Jones: chadt override, Thi Jones: carlosinet override Start: 06-08-2024 End: 06-08-2024 50 mcg, IntraVENous, EVERY 5 MIN PRN, 4 doses, Starting on Fri06/08/24 at 1747, Until Fri06/08/24 at 1907, Pain Severe (7-10), If oral and IV narcotics ordered, use oral first and only use IV if oral is ineffective or cannot take oral. Do Not give oral and IV within 1 hour of each other unless specifically ordered., PACU only Start: 01-01-2024 End: 01-01-2024 PRN, Starting on Fri01/01/24 at 1737, Until Fri01/01/24 at 1826, Intra-op Start: 01-01-2024 End: 01-01-2024 take 1 dose by mouth every hour 50 mcg, IntraVENous, ONCE, 1 dose, On Fri01/01/24 at 1630, If oral and IV narcotics ordered, use oral first and only use IV if oral is ineffective or cannot take oral. Do Not give oral and IV within 1 hour of each other unless specifically ordered. Start: 01-01-2024 End: 01-01-2024 50 mcg, IntraVENous, EVERY 5 MIN PRN, 4 doses, Starting on Corinne 01/01/24 at 0758, Until Corinne 01/01/24 at 0954, Pain Severe (7-10), Phase I - Initial therapy for severe pain., PACU only 12 hr guaiFENesin 600 mg extended release oral tablet (1 source) Start: 12-31-2023 take 600 mg by mouth twice daily as needed 600 mg, Oral, 2 TIMES DAILY PRN, Starting on Fri12/31/23 at 0631, Until Discontinued, Congestion, Cough, Do not crush or break. 1 ml hydrALAZINE hydrochloride 20 mg/ml injection (1 source) Arteriolar Vasodilator Start: 12-30-2023 20 mg, IntraVENous, EVERY 4 HOURS PRN, Starting on Fri12/30/23 at 2329, Until Discontinued, High Blood Pressure, SBP > 150 1 ml HYDROmorphone hydrochloride 1 mg/ml cartridge (3 sources) Opioid Agonist Start: 06-08-2024 End: 06-08-2024 0.5 mg, IntraVENous, EVERY 5 MIN PRN, 2 doses, Starting on Fri06/08/24 at 1800, Until Fri06/08/24 at 1813, Pain Severe (7-10), If oral and IV narcotics ordered, use oral first and only use IV if oral is ineffective or cannot take oral. Do Not give oral and IV within 1 hour of each other unless specifically ordered., PACU only Start: 12-30-2023 0.5 mg, IntraV ENous, EVERY 3 HOURS PRN, Starting on Fri12/30/23 at 2327, Until Discontinued, Allowed for higher pain score per patient request, Pain not controlled with oral opiates, If oral and IV narcotics ordered, use oral first and only use IV if oral is ineffective or cannot take oral. Do Not give oral and IV within 1 hour of each other unless specifically ordered. iohexol (OMNIPaque) 350 mg iodine/mL solution 80 mL (2 sources) Start: 07-15-2023 End: 07-15-2023 iohexol (OMNIPaque) 350 mg iodine/mL solution 80 mL iopamidol (ISOVUE-370) 76 % injection 100 mL (2 sources) Start: 01-01-2024 End: 01-01-2024 100 mL, Other, IMG ONCE PRN, 1 dose, Starting on Fri01/01/24 at 1849, Until Fri01/01/24 at 1850, Other Start: 01-01-2024 End: 01-01-2024 take 1 dose intravenously once 100 mL, IntraVENous, IM G ONCE PRN, 1 dose, Starting on Fri01/01/24 at 1531, Until Fri01/01/24 at 1533, Other ketamine 10 mg/ml injectable solution (1 source) General Anesthetic Start: 06-08-2024 End: 06-08-2024 25 mg, IntraVENous, ONCE, 1 dose, On Fri06/08/24 at 1900, PACU only labetalol hydrochloride 5 mg/ml injectable solution (3 sources) beta-Adrenergic Archie Start: 01-02-2024 End: 01-03-2024 10 mg, IntraVENous, EVERY 6 HOURS PRN, Starting on Fri01/03/24 at 1200, Until Discontinued, High Blood Pressure, give for sys bp > 160. hold for HR Start: 12-30-2023 End: 01-02-2024 20 mg, IntraVENous, EVERY 2 HOURS PRN, Starting on Fri12/30/23 at 2328, Until Fri01/02/24 at 1405, High Blood Pressure, SBP > 150, Do not administer if HR less than 60 2 ml midazolam 1 mg/ml injection (2 sources) Benzodiazepine Start: 06-08-2024 End: 06-08-2024 2 mg, IntraVENous, ONCE, 1 dose, On Fri06/08/24 at 1830, PACU only Start: 06-08-2024 End: 06-08-2024 1 dose, Starting on 06/08 at 1812, Until Fri06/08/24 at 1817, Zuri Amaya: cabinet override, Zuri Amaya: cabinet override midodrine hydrochloride 5 mg oral tablet (1 source) alpha-Adrenergic Agonist Start: 01-05-2024 take 5 mg by mouth three times daily as needed 5 mg, Oral, 3 TIMES DAILY PRN, Starting on Fri01/05/24 at 1144, Until Discontinued, if SBP 1 ml naloxone hydrochloride 0.4 mg/ml injection (1 source) Opioid Antagonist Start: 06-09-2024 0.4 mg, IntraVENous, PRN, Starting on Fri06/09/24 at 1416, Until Discontinued, Opioid Reversal nitroglycerin 0.4 mg/actuat mucosal spray (2 sources) Nitrate Vasodilator Start: 07-15-2023 End: 07-15-2023 nitroglycerin (NitrolinguaL) 400 mcg/spray spray 2 spray OLANZapine (ZyPREXA) 2.5 mg in sterile water 0.5 mL injection (2 sources) Start: 01-02-2024 End: 01-02-2024 2.5 mg, IntraMUSCular, ONCE, On Fri01/02/24 at 2130, For 1 dose, Reconstitute 10 mg vial with 2.1 ml of sterile water to create approximate concentration of 5 mg/ml. Start: 01-02-2024 End: 01-02-2024 2.5 mg, IntraVENous, ONCE, O n Fri01/02/24 at 1530, For 1 dose, Reconstitute 10 mg vial with 2.1 ml of sterile water to create approximate concentration of 5 mg/ml. Omeprazole (10 sources) Proton Pump Inhibitor Omeprazole Not-Taking 2 ml ondansetron 2 mg/ml injection (20 sources) Serotonin-3 Receptor Antagonist Start: 01-04-2024 4 mg, IntraVENous, EVERY 6 HOURS PRN, Starting on Fri01/04/24 at 0409, Until Discontinued, Nausea, Vomiting Start: 01-01-2024 End: 01-01-2024 4 mg, IntraVENous, ONCE, 1 d ose, On Corinne 01/01/24 at 0845 Start: 10-14-2023 End: 11-10-2023 take 1 tablet by mouth every twelve hours as needed for nausea and vomiting oxyCODONE hydrochloride 10 mg oral tablet (20 sources) Opioid Agonist Start: 12-08-2024 End: 12-30-2024 take 1 tablet by mouth every six hours as needed Oxycodone 10 mg tablet Discontinued 10 MG PO Every 6 hours as needed December 13, 2024 12:00am December 16, 2024 10:51am Start: 04-21-2024 End: 12-08-2024 take 1 tablet by mouth every four hours as needed for pain Oxycodone 20 mg tablet Discontinued 20 MG PO Every 4 hours as needed for pain June 30, 2024 July 13, 2024 3:03pm Start: 04-08-2024 End: 04-08-2024 take 1 tablet by mouth every four hours as needed for pain Oxycodone 20 mg tablet Discontinued 20 MG PO Every 4 hours as needed for pain 42 7 April 08, 2024 April 08, 2024 10:31am Start: 04-08-2024 End: 04-08-2024 take 1 tablet by mouth every four hours as needed for pain Oxycodone 20 mg tablet Discontinued 20 MG PO Every 4 hours as needed for pain 90 April 08, 2024 April 08, 2024 11:56am Start: 12-30-2023 oxyCODONE (ANIRUDH ICODONE) immediate release tablet 15 mg Start: 09-22-2023 End: 04-21-2024 take 1 tablet by mouth every four hours as needed for pain Oxycodone 20 mg tablet Discontinued 20 MG PO Every 4 hours as needed for pain 90 January 29, 2024 February 17, 2024 10:10am Start: 09-09-2023 End: 09-22-2023 take 1 tablet by mouth every six hours as needed for pain Oxycodone 20 mg tablet Discontinued 20 MG PO Every 6 hours as needed for pain 28 September 15, 2023 September 22, 2023 5:33pm Start: 05-01-2023 take 1 tablet by steve th once daily oxyCODONE (Roxicodone) 30 mg immediate release tablet Take 1 tablet (30 mg) by mouth once daily. 0 05/01/2023 Active Start: 07-24-2022 take 1 tablet by steve th every six hours oxyCODONE HCl 30 MG 1 tablet Orally every 6 hrs for 30 days Jul, Active Start: 11-14-2021 End: 05-07-2024 take 1 tablet by mouth every four hours Oxycodone 30 mg tablet Discontinued 30 MG PO Every 4 hours 180 30 August 07, 2023 September 09, 2023 12:17pm take 2 tablets by mo [facility] every four hours as needed for pain oxyCODONE (OXY-IR) 15 MG immediate release tablet Take 2 tablets by mouth every 4 hours as needed for Pain. Active pantoprazole 40 mg delayed release oral tablet (9 sources) Proton Pump Inhibitor Start: 01-20-2024 End: 02-26-2024 Pantoprazole Discontinued MG PO January 19, 2024 11:00pm February 26, 2024 2:08pm Start: 01-20-2024 End: 02-26-2024 Pantoprazole Discontinued MG PO January 20, 2024 12:00am February 26, 2024 3:08pm Start: 01-20-2024 Pantoprazole A ctive MG PO January 20, 2024 12:00am Start: 01-05-2024 End: 06-08-2024 Pantoprazole 40 mg tablet,de layed release (DR/EC) Discontinued MG PO January 20, 2024 12:00am February 26, 2024 3:08pm Start: 10-21-2017 End: 01-05-2024 take 1 tablet by mouth once daily before breakfast pantoprazole (PROTONIX) 40 MG tablet Take 1 tablet by mouth every morning (before breakfast) 30 tablet 1 10/21/2017 01/05/2024 Discontinued (Stop Taking at Discharge) pantoprazole (PROTONIX) 80 mg in sodium chloride 0.9 % 100 mL infusion (2 sources) Start: 01-01-2024 End: 01-04-2024 take 8 mg intravenously every hour 8 mg/hr (10 mL/hr), IntraVENous, CONTINUOUS, Starting on Fri01/01/24 at 1015, Until 01/04/24 at 1014 Start: 12-31-2023 End: 01-01-2024 take 8 mg intravenously every hour 8 mg/hr (10 mL/hr), IntraVENous, CONTINUOUS, Starting on Fri12/31/23 at 0200, Until Fri01/01/24 at 1004 Pantoprazole 40 mg tablet,delayed release (DR/EC) (5 sources) Start: 01-20-2024 End: 02-26-2024 Pantoprazole 40 mg tablet,delayed release (DR/EC) Discontinued MG PO January 20, 2024 12:00am February 26, 2024 3:08pm Start: 01-20-2024 End: 02-26-2024 Pantoprazole 40 mg tablet,de layed release (DR/EC) Discontinued MG PO January 19, 2024 11:00pm February 26, 2024 2:08pm potassium bicarbonate 20 meq effervescent oral tablet (1 source) Start: 06-11-2024 End: 06-11-2024 take 3-4 tablets by mouth once 40 mEq, Oral, ONCE, 1 dose, On Fri06/11/24 at 1345, Do not chew or crush. Dissolve flavored tablets completely in 3 to 4 ounces of cold water; unflavored tablets may be dissolved in 3 to 4 ounces of cold juice. Patient to sip slowly over a 5 to 10 minute period. May further dilute if GI adverse effects occur. Start: 06-11-2024 End: 06-11-2024 take 3-4 tablets by mouth once 40 mEq, Oral, ONCE, 1 d ose, On Fri06/11/24 at 1345, Do not chew or crush. Dissolve flavored tablets completely in 3 to 4 ounces of cold water; unflavored tablets may be dissolved in 3 to 4 ounces of cold juice. Patient to sip slowly over a 5 to 10 minute period. May further dilute if GI adverse effects occur. promethazine (PHENERGAN) 12. 5 mg in sodium chloride 0.9 % 50 mL IVPB (1 source) Start: 01-01-2024 End: 01-01-2024 12.5 mg, IntraVENous, at 200 mL/hr, Administer over 15 Minutes, ONCE, On Corinne 01/01/24 at 0900, For 1 dose, Administer via antecubital vein or higher., PACU only 5 ml sodium chloride 9 mg/ml injection (12 sources) Start: 06-08-2024 5-40 mL, Intra VENous, EVERY 12 HOURS SCHEDULED (2 times per day), First dose on Fri06/08/24 at 2100, Until Discontinued, For Line Patency: Peripheral IV = 5 mL; Midline or Central Line = 10 mL/lumen. If following IV push medication, administer flush at same rate as the IV push. Flush volume is determined by type of infusion therapy being given. For non-viscous solutions use: Peripheral IV = 5 mL Midline or Central Line = 10 mL/lumen For viscous solutions (i.e. blood components, parenteral nutrition, contrast media, or after obtaining blood sample) use: Peripheral IV = 10 mL Midline or Central Line = 20 mL/lumen, Post-op Start: 06-08-2024 IntraVENous, a t 125 mL/hr, CONTINUOUS, Starting on Fri06/08/24 at 1930, Post-op Start: 06-08-2024 5-40 mL, Intra VENous, PRN, Starting on Fri06/08/24 at 1909, Until Discontinued, Line Care, After every IV line use, For Line Patency: Peripheral IV = 5 mL; Midline or Central Line = 10 mL/lumen. If following IV push medication, administer flush at same rate as the IV push. Flush volume is determined by type of infusion therapy being given. For non-viscous solutions use: Peripheral IV = 5 mL Midline or Central Line = 10 mL/lumen For viscous solutions (i.e. blood components, parenteral nutrition, contrast media, or after obtaining blood sample) use: Peripheral IV = 10 mL Midline or Central Line = 20 mL/lumen, Post-op Start: 06-08-2024 End: 06-08-2024 IntraVENous, at 5-250 mL/hr, PRN, if patient receiving piggyback infusions and maintenance fluids are not ordered, Starting on Fri06/08/24 at 1206, For piggyback infusion, administer at same rate as piggyback for a total of 25 mL. Enter 25 mL into dose field and piggyback rate into rate field of order. If piggyback is infusing at a rate less than 100 mL/hr, enter 25 mL into dose field and 100 mL/hr into rate field of order., Pre-op (day of surgery) Start: 01-01-2024 End: 01-01-2024 500 mL (5.81 mL/kg), IntraVE Nous, at 247.9 mL/hr, Administer over 121 Minutes, ONCE, On Fri01/01/24 at 1500, For 1 dose Start: 12-30-2023 5-40 mL, Intra VENous, EVERY 12 HOURS SCHEDULED (2 times per day), First dose on Fri12/30/23 at 2100, Until Discontinued, For Line Patency: Peripheral IV = 5 mL; Midline or Central Line = 10 mL/lumen. If following IV push medication, administer flush at same rate as the IV push. Flush volume is determined by type of infusion therapy being given. For non-viscous solutions use: Peripheral IV = 5 mL Midline or Central Line = 10 mL/lumen For viscous solutions (i.e. blood components, parenteral nutrition, contrast media, or after obtaining blood sample) use: Peripheral IV = 10 mL Midline or Central Line = 20 mL/lumen Start: 12-30-2023 IntraVENous, a t 240 mL/hr, Administer over 10 Minutes, PRN, blood administration, Starting on Fri01/01/24 at 1629, For 1 dose, For use in priming line prior to transfusion (prime via gravity) and flush line post transfusion ONLY. Discontinue once line has been cleared of remaining blood product. Start: 12-30-2023 take 20 mL intraveno usly every hour IntraVENous, at 5-250 mL/hr, PRN, if patient receiving piggyback infusions and maintenance fluids are not ordered OR KVO fluids to protect IV site / prevent frequent line interruptions/ long duration, Starting on Fri12/30/23 at 1819, For piggyback infusion, administer at same rate as piggyback for a total of 25 mL. Enter 25 mL into dose field and piggyback rate into rate field of order. If piggyback is infusing at a rate less than 100 mL/hr, enter 25 mL into dose field and 100 mL/hr into rate field of order. For KVO fluids, enter rate of 20 mL/hr or less into rate field of order. Start: 12-30-2023 5-40 mL, Intra VENous, PRN, Starting on Fri12/30/23 at 1819, Until Discontinued, Line Care, After every IV line use, For Line Patency: Peripheral IV = 5 mL; Midline or Central Line = 10 mL/lumen. If following IV push medication, administer flush at same rate as the IV push. Flush volume is determined by type of infusion therapy being given. For non-viscous solutions use: Peripheral IV = 5 mL Midline or Central Line = 10 mL/lumen For viscous solutions (i.e. blood components, parenteral nutrition, contrast media, or after obtaining blood sample) use: Peripheral IV = 10 mL Midline or Central Line = 20 mL/lumen sodium chloride 0.9 % 1,000 mL with folic acid 1 mg, adult multi-vitamin with vitamin k 10 mL, thiamine 100 mg (1 source) Start: 01-01-2024 End: 01-01-2024 IntraVENous, at 100 mL/hr, ONCE, On Fri01/01/24 at 1815, For 1 dose sucralfate 1000 mg oral tablet (14 sources) Aluminum Complex Start: 01-03-2024 End: 02-26-2024 take 1 tablet by mouth every eight hours Sucralfate 1 gram tablet Discontinued 1 GM PO .every 8 hours January 20, 2024 12:00am February 26, 2024 3:10pm SUMAtriptan 50 mg oral tablet (2 sources) Serotonin-1b and Serotonin-1d Receptor Agonist Start: 06-08-2024 End: 06-08-2024 take 1 dose by mouth once 100 mg, Oral, ONCE, 1 dose, On Fri06/08/24 at 2000, Substituted for Eletriptan (RELPAX). Start: 01-05-2024 End: 01-05-2024 take 1 dose by mouth once 100 mg, Oral, Once as needed , 1 dose, Starting on Fri01/05/24 at 1000, Until Fri01/05/24 at 1211, Migraine, Substituted for Eletriptan (RELPAX). traZODone hydrochloride 50 mg oral tablet (2 sources) Serotonin Reuptake Inhibitor Start: 12-13-2024 End: 12-30-2024 take 1 tablet by mouth once daily at bedtime Trazodone 50 mg tablet Discontinued 50 MG PO Daily at bedtime December 13, 2024 12:00am December 30, 2024 12:45pm vitamin B12 (1 source) Vitamin B12 Start: 12-31-2023 End: 12-31-2023 inject 1 dose by intramuscular injection once 1,000 mcg, IntraMUSCular, ONCE, 1 dose, On Fri12/31/23 at 0900 Vitamin D 50,000 intl units (1.25 mg) oral capsule (2 sources) Start: 11-14-2021 take 1 capsule by mouth once Vitamin D 50,000 intl units (1.25 mg) oral capsule 50,000 International_Uni t = 1 cap(s), Oral, MonFri, Refills(s) 0 Start Date: 11/14/21 Status: Ordered Repeat number: 1 Start: 11-14-2021 take 1 capsule by mouth once V itamin D 50,000 intl units (1.25 mg) oral capsule 50,000 International_Unit = 1 cap(s), Oral, MonFri, Refills(s) 0 Start Date: 11/14/21 Status: Ordered Problems Active Problems Problem Classification Problem Date Documented Da te Episodic/Chronic Abdominal pain (20 sources) Periumbilical pain; Translations: [Periumbilical pain] Onset: 7 Episodic Acute bronchitis (8 sources) Acute bronchitis; Translations: [Acute bronchitis, unspecified] Onset: 4 Episodic Administrative/social admission (15 sources) Other reduced mobility; Translations: [Impaired mobility and activities of daily living] 10-16-2023 Episodic Anxiety disorders (20 sources) Anxiety; Translations: [Anxiety disorder, unspecified] Onset: 2 11-14-2021 Chronic Aortic; peripheral; and visceral artery aneurysms (20 sources) Dilatation of aorta; Translations: [Aortic ectasia, unspecified site] Onset: 4 05-27-2023 Chronic Attention-deficit, conduct, and disruptive behavior disorders (2 sources) Attention deficit hyperactivity disorder 11-14-2021 Chronic Attention-deficit, conduct, and disruptive behavior disorders (4 sources) Attention deficit hyperactivity disorder, combined type; Translations: [Attention-deficit hyperactivity disorder, combined type] Chronic Biliary tract disease (12 sources) Biliary calculus; Translations: [Calculus of gallbladder without cholecystitis without obstruction] Onset: 2 11-14-2021 Episodic Cardiac and circulatory congenital anomalies (8 sources) Congenital anomaly of aorta; Translations: [Patent foramen ovale] 11-14-2021 Chronic Cardiac dysrhythmias (1 source) Atrial fibrillation; Translations: [Unspecified atrial fibrillation] Onset: 4 01-08-2024 Chronic Cardiac dysrhythmias (4 sources) Palpitations; Translations: [Palpitations] Episodic Chronic ulcer of skin (19 sources) Disorder of elbow; Translations: [Non-pressure chronic ulcer of skin of other sites with unspecified severity] 08-27-2023 Chronic Coronary atherosclerosis and other heart disease (8 sources) Preinfarction syndrome; Translations: [Unstable angina] Onset: 4 07-01-2023 Chronic Deficiency and other anemia (11 sources) Anemia due to blood loss; Translations: [Iron deficiency anemia secondary to blood loss (chronic)] 01-20-2024 Chronic Deficiency and other anemia (5 sources) Iron deficiency anemia secondary to blood loss (chronic); Translations: [Iron deficiency anemia secondary to blood loss (chronic)] 01-20-2024 Chronic Deficiency and other anemia (20 sources) Iron deficiency anemia; Translations: [Iron deficiency anemia, unspecified] 11-14-2021 Episodic Deficiency and other anemia (6 sources) Pernicious anemia; Translations: [Vitamin B12 deficiency anemia due to intrinsic factor deficiency] 11-14-2021 Episodic Deficiency and other anemia (6 sources) Anemia; Translations: [Anemia, unspecified] 12-08-2024 Episodic Deficiency and other anemia (1 source) Iron deficiency anemia, unspecified Episodic Diseases of mouth; excluding dental (14 sources) Parotitis; Translations: [Acute sialoadenitis] 12-18-2023 Episodic Esophageal disorders (10 sources) Gastroesophageal reflux disease; Translations: [Gastroesophageal reflux disease without esophagitis] Onset: 7 11-14-2021 Chronic Essential hypertension (20 sources) Essential hypertension; Translations: [Essential (primary) hypertension] Onset: 4 05-27-2023 Chronic Fluid and electrolyte disorders (20 sources) Hypo-osmolality and hyponatremia; Translations: [Dehydration] Onset: 8 Episodic Fracture of lower limb (20 sources) Closed fracture of ankle; Translations: [Other fracture of left lower leg, subsequent encounter for closed fracture with routine healing] Onset: 8 Episodic Gastroduodenal ulcer (except hemorrhage) (19 sources) Chronic gastrojejunal ulcer; 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] Onset: 8 01-20-2024 Chronic Gastroduodenal ulcer (except hemorrhage) (5 sources) H/O: peptic ulcer; Translations: [Acute gastrojejunal ulcer] Onset: 4 11-14-2021 Episodic Gastrointestinal hemorrhage (5 sources) Gastrointestinal hemorrhage; Translations: [Chronic or unspecified gastrojejunal ulcer with hemorrhage] Onset: 8 01-09-2024 Chronic Genitourinary symptoms and ill-defined conditions (8 sources) Dysuria; Translations: [Dysuria] 04-29-2024 Episodic Headache; including migraine (20 sources) Migraine; Translations: [Migraine, unspecified, not intractable, without status migrainosus] 11-14-2021 Chronic Heart valve disorders (7 sources) Mitral valve regurgitation; Translations: [Mitral valve prolapse] Onset: 4 11-14-2021 Chronic Intestinal infection (4 sources) Clostridial gastroenteritis; Translations: [Enterocolitis due to Clostridium difficile, not specified as recurrent] Episodic Malaise and fatigue (14 sources) Asthenia; Translations: [Weakness] 01-20-2024 Episodic Mood disorders (20 sources) Depressive disorder; Translations: [Dysthymia] Onset: 6 11-14-2021 Chronic Nutritional deficiencies (20 sources) Vitamin D deficiency; Translations: [Vitamin D deficiency, unspecified] Onset: 5 11-14-2021 Chronic Open wounds of extremities (1 source) Laceration without foreign body of left elbow, initial encounter Episodic Osteoporosis (6 sources) Osteoporosis; Translations: [Primary osteoporosis] Onset: 5 11-14-2021 Chronic Other aftercare (3 sources) Other filler leaf cutter long (current) drug therapy; Translations: [OTH [facility] CURRENT DRUG THERAPY] Onset: 2 Episodic Other aftercare (16 sources) Patient encounter status; Translations: [Encounter for palliative care] 09-10-2023 Episodic Other aftercare (3 sources) Encounter for palliative care; Translations: [Encounter for palliative care] 09-12-2023 Episodic Other circulatory disease (4 sources) Elevated blood-pressure reading without diagnosis of hypertension; Translations: [Elevated blood-pressure reading, without diagnosis of hypertension] Episodic Other connective tissue disease (2 sources) Pain in left leg Episodic Other connective tissue disease (6 sources) Pain in left foot; Translations: [Pain in limb] Episodic Other connective tissue disease (8 sources) Pain in limb; Translations: [Pain in unspecified limb] Onset: 4 Episodic Other connective tissue disease (6 sources) Pain in left foot; Translations: [Pain in left foot] 02-03-2024 Episodic Other connective tissue disease (1 source) Other specified soft tissue disorders Episodic Other connective tissue disease (17 sources) Peripheral neuropathic pain; Translations: [Neuralgia and neuritis, unspecified] 07-23-2023 Episodic Other connective tissue disease (13 sources) Neuralgia and neuritis, unspecified; Translations: [Neuralgia, neuritis, and radiculitis, unspecified] 08-26-2023 Episodic Other connective tissue disease (7 sources) Foot pain; Translations: [Pain in left foot] 02-03-2024 Episodic Other ear and sense organ disorders (2 sources) Bilateral hearing loss 11-14-2021 Chronic Other ear and sense organ disorders (4 sources) Hearing loss; Translations: [Unspecified hearing loss, bilateral] Chronic Other endocrine disorders (4 sources) Hypoglycemia; Translations: [Hypoglycemia, unspecified] Chronic Other gastrointestinal disorders (2 sources) History of gastrointestinal bleed 11-14-2021 Episodic Other gastrointestinal disorders (4 sources) History of bariatric surgical procedure; Translations: [Bariatric surgery status] Episodic Other lower respiratory disease (1 source) Dyspnea, unspecified Episodic Other nervous system disorders (2 sources) Peripheral nerve disease 11-14-2021 Chronic Other nervous system disorders (4 sources) Hereditary peripheral neuropathy; 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] Onset: 5 Chronic Other nervous system disorders (18 sources) Chronic pain syndrome; Translations: [Chronic pain syndrome] 09-10-2023 Chronic Other nervous system disorders (20 sources) Chronic pain syndrome; Translations: [Chronic pain syndrome] 09-12-2023 Chronic Other nervous system disorders (2 sources) Complex regional pain syndrome; Translations: [Complex regional pain syndrome] 10-18-2017 Chronic Other non-traumatic joint disorders (4 sources) Arthralgia of the ankle and/or foot; Translations: [Pain in left ankle and joints of left foot] Episodic Other nutritional; endocrine; and metabolic disorders (13 sources) Body mass index 30+ - obesity; Translations: [Body mass index (BMI) 32.0-32.9, adult] Onset: 4 11-23-2021 Chronic Other nutritional; endocrine; and metabolic disorders (8 sources) Obese class I; Translations: [Body mass index (BMI) 33.0-33.9, adult] Chronic Other nutritional; endocrine; and metabolic disorders (2 sources) Body mass index (BMI) 32.0-32.9, adult; Translations: [Body mass index (BMI) 32.0-32.9, adult] Onset: 4 Chronic Other nutritional; endocrine; and metabolic disorders (2 sources) Hypocalcemia; Translations: [Hypocalcemia] Onset: 8 10-19-2017 Chronic Other nutritional; endocrine; and metabolic disorders (2 sources) Hypoalbuminemia due to protein calorie malnutrition; Translations: [Other disorders of plasma-protein metabolism, not elsewhere classified] Onset: 8 10-19-2017 Chronic Other screening for suspected conditions (not mental disorders or infectious disease) (6 sources) Imaging of abdomen abnormal; Translations: [Abnormal findings on diagnostic imaging of other abdominal regions, including retroperitoneum] Onset: 8 Episodic Other skin disorders (8 sources) Sebaceous cyst; Translations: [Sebaceous cyst] Onset: 9 Episodic Otitis media and related conditions (4 sources) Non-suppurative otitis media; Translations: [Unspecified nonsuppurative otitis media, left ear] Episodic Ema-; endo-; and myocarditis; cardiomyopathy (except that caused by tuberculosis or sexually transmitted disease) (18 sources) Heart valve disorder; Translations: [Endocarditis, valve unspecified] Onset: 4 05-27-2023 Chronic Residual codes; unclassified (2 sources) Insomnia 11-14-2021 Episodic Residual codes; unclassified (6 sources) Tobacco user; Translations: [Tobacco use] Onset: 7 11-14-2021 Episodic Residual codes; unclassified (4 sources) Family history of diabetes mellitus; Translations: [Family history of diabetes mellitus] Episodic Residual codes; unclassified (17 sources) Edema; Translations: [Edema, unspecified] 08-26-2023 Episodic Residual codes; unclassified (4 sources) Edema, unspecified; Translations: [Edema] 08-26-2023 Episodic Residual codes; unclassified (1 source) Preoperative state 04-07-2024 Episodic Skin and subcutaneous tissue infections (12 sources) Cellulitis of left foot; Translations: [Cellulitis of left lower limb] 02-03-2024 Episodic Spondylosis; intervertebral disc disorders; other back problems (20 sources) Other intervertebral disc displacement, lumbar region; Translations: [Cervical disc disorder] Onset: 8 11-14-2021 Chronic Spondylosis; intervertebral disc disorders; other back problems (20 sources) Neck pain; Translations: [Cervicalgia] Onset: 7 08-27-2023 Episodic Substance-related disorders (19 sources) Nicotine dependence, cigarettes, uncomplicated; Translations: [Nicotine dependence] Onset: 9 05-27-2023 Chronic Past or Other Problems Problem Classification Problem Date Documented Da te Episodic/Chronic Acute posthemorrhagic anemia (3 sources) Acute posthemorrhagic anemia; Translations: [Acute posthemorrhagic anemia] Onset: 8 01-01-2024 Episodic Bacterial infection; unspecified site (4 sources) Bacterial infectious disease; Translations: [Bacterial infection, unspecified, in conditions classified elsewhere and of unspecified site] Onset: 9 Episodic Conditions associated with dizziness or vertigo (15 sources) Dizziness; Translations: [Dizziness and giddiness] Onset: 4 05-27-2023 Episodic Deficiency and other anemia (1 source) Other iron deficiency anemias; Translations: [OTHER IRON DEFICIENCY ANEMIAS] Onset: 2 Episodic Deficiency and other anemia (1 source) Vitamin B12 deficiency anemia due to intrinsic factor deficiency; Translations: [VITAMIN B12 DEF ANEMIA DUE IF DEF] Onset: 2 Episodic Gastrointestinal hemorrhage (20 sources) Gastrointestinal hemorrhage; Translations: [Gastrointestinal hemorrhage, unspecified] Onset: 8 Episodic Mood disorders (1 source) Mood disorders Nonspecific chest pain (5 sources) Chest pain; Translations: [Chest pain, unspecified] Onset: 6 01-09-2024 Episodic Nutritional deficiencies (2 sources) Iron deficiency; Translations: [Iron deficiency] Onset: 8 10-19-2017 Episodic Other aftercare (1 source) jail (current) use of aspirin; Translations: [[facility] CURRENT USE OF ASPIRIN] Onset: 2 Episodic Other aftercare (3 sources) Prescribed medication regimen behavior finding; Translations: [jail (current) use of opiate analgesic] Onset: 4 01-01-2024 Episodic Other circulatory disease (2 sources) Orthostatic hypotension; Translations: [Orthostatic hypotension] Onset: 8 10-18-2017 Episodic Other circulatory disease (3 sources) Low blood pressure; Translations: [Other hypotension] Onset: 8 01-01-2024 Episodic Other connective tissue disease (4 sources) Pain in forearm; Translations: [Pain in joint, forearm] Onset: 8 Episodic Other lower respiratory disease (16 sources) Dyspnea; Translations: [Shortness of breath] Onset: 4 05-27-2023 Episodic Other lower respiratory disease (2 sources) Shortness of breath; Translations: [Shortness of breath] Onset: 4 Episodic Other non-traumatic joint disorders (8 sources) Arthralgia of the lower leg; Translations: [Pain in right knee] Onset: 4 Episodic Residual codes; unclassified (4 sources) C/O - a back symptom; Translations: [Other symptoms referable to back] Onset: 7 Episodic Shock (2 sources) Hypovolemic shock; Translations: [Hypovolemic shock] Onset: 8 10-18-2017 Episodic Substance-related disorders (4 sources) Drug-induced insomnia; Translations: [Insomnia due to medical condition classified elsewhere] Onset: 7 Episodic Syncope (5 sources) Syncope and collapse; Translations: [Syncope] Onset: 4 12-31-2023 Episodic Unclassified (2 sources) Low back pain, unspecified M54.50 Results Test Name Value Interpretation Reference Range Facil ity BASIC METABOLIC PANELon 12-24 Anion gap [Moles/Vol] 9 mmol/L Normal 5-15 [facility] Comment on above: Performed By: #### B MP #### [facility] ([address] [place] [address] VIR Calcium [Mass/Vol] 8.1 mg/dL Low 8.5-10.5 [facility] Comment on above: Performed By: #### B MP #### [facility] ([address] [place] [address] VIR Chloride [Moles/Vol] 101 mmol/L Normal 98-109 [facility] Comment on above: Performed By: #### B MP #### [facility] ([address] [place] [address] VIR CO2 [Moles/Vol] 27 mmol/L Normal 22-32 [facility] Comment on above: Performed By: #### B MP #### [facility] ([address] [place] [address] VIR Creatinine [Mass/Vol] 0.38 mg/dL Low 0.40-1.00 [facility] Comment on above: Result Comment: METH OD TRACEABLE TO IDMS STANDARD Performed By: #### B MP #### [facility] ([address] [address] VIR EGFR (CKD-EPI) NON-RACE DEPENDENT >^90 Normal >=60 [facility] Comment on above: Result Comment: eGFR not reported due to non-numeric value for Creatinine. Reported eGFR is based on the CKD-EPI 2020 equation that does not use a race coefficient. Performed By: #### B MP #### [facility] ([address] [address] VIR Glucose [Mass/Vol] 99 mg/dL Normal 65-99 [facility] Comment on above: Performed By: #### B MP #### [facility] ([address] [address] VIR Potassium [Moles/Vol] 3.0 mmol/L Low 3.5-5.0 [facility] Comment on above: Performed By: #### B MP #### [facility] ([address] [place] [address] VIR Sodium [Moles/Vol] 137 mmol/L Normal 134-146 [facility] Comment on above: Performed By: #### B MP #### [facility] ([address] [address] VIR Urea nitrogen [Mass/Vol] mg/dL Low 5-23 [facility] Comment on above: Performed By: #### B MP #### [facility] ([address] [address] VIR CBC WITH AUTO DIFFERENTIALon 01-07-2025 BASOPHILS ABSOLUTE COUNT (10*3/UL) BY AUTOMATED COUNT 0.0 10*3/uL Normal 0.0-0.2 [facility] Comment on above: Performed By: #### C BCA #### [facility] ([facility]) [address] [place] [address] VIR BASOPHILS RELATIVE PERCENT BY AUTOMATED COUNT 0.4 % Normal [facility] Comment on above: Performed By: #### C BCA #### [facility] ([facility]) [address] [place] [address] VIR CELLAVISION DIFFERENTIAL TYPE AUTOMATED DIFFERENTIAL Normal [facility] Comment on above: Performed By: #### C BCA #### [facility] ([address] [address] VIR Eosinophils (Bld) [#/Vol] 0.1 10*3/uL Normal 0.0-0.4 [facility] Comment on above: Performed By: #### C BCA #### [facility] ([facility]) [address] [place] [address] VIR EOSINOPHILS RELATIVE PERCENT BY AUTOMATED COUNT 2.8 % Normal [facility] Comment on above: Performed By: #### C BCA #### [facility] ([facility]) [address] [place] [address]. [place] [address] VIR Erythrocyte distribution width (RBC) [Ratio] 18.4 % High 11.5-15 [facility] Comment on above: Performed By: #### C BCA #### [facility] ([facility]) [address] [place] [address] VIR Hematocrit (Bld) [Volume fraction] 25.1 % Low 35-47 [facility] Comment on above: Performed By: #### C BCA #### [facility] ([facility]) [address] [place] [address] VIR Hemoglobin (Bld) [Mass/Vol] 8.2 g/dL Low 11.7-15.5 [facility] Comment on above: Performed By: #### C BCA #### [facility] ([address] [address] VIR LYMPHOCYTES ABSOLUTE COUNT (10*3/UL) BY AUTOMATED COUNT 1.2 10*3/uL Normal 1.0-3.5 [facility] Comment on above: Performed By: #### C BCA #### [facility] ([address] [address] VIR LYMPHOCYTES RELATIVE PERCENT BY AUTOMATED COUNT 39.0 % Normal [facility] Comment on above: Performed By: #### C BCA #### [facility] ([address] [address] VIR MCH (RBC) [Entitic mass] 28.8 pg Normal 27-34 [facility] Comment on above: Performed By: #### C BCA #### [facility] ([address] [address] VIR MCHC (RBC) [Mass/Vol] 32.5 g/dL Normal 32-36 [facility] Comment on above: Performed By: #### C BCA #### [facility] ([address] [address] VIR MCV (RBC) [Entitic vol] 89 fL Normal 80-100 [facility] Comment on above: Performed By: #### C BCA #### [facility] ([address] [address] VIR MONOCYTES ABSOLUTE COUNT (10*3/UL) BY AUTOMATED COUNT 0.3 10*3/uL Normal 0.0-0.9 [facility] Comment on above: Performed By: #### C BCA #### [facility] ([address] [address] VIR MONOCYTES RELATIVE PERCENT BY AUTOMATED COUNT 8.2 % Normal [facility] Comment on above: Performed By: #### C BCA #### [facility] ([address] [place] [address] VIR NEUTROPHILS ABSOLUTE COUNT BY AUTOMATED COUNT 1.5 10*3/uL Normal 1.5-6.6 [facility] Comment on above: Performed By: #### C BCA #### [facility] ([address] [place] [address] VIR NEUTROPHILS RELATIVE PERCENT BY AUTOMATED COUNT 49.6 % Normal [facility] Comment on above: Performed By: #### C BCA #### [facility] ([address] [address] VIR Platelet mean volume (Bld) [Entitic vol] 7.9 fL Normal 7-12 [facility] Comment on above: Performed By: #### C BCA #### [facility] ([address] [address] VIR Platelets (Bld) [#/Vol] 174 10*3/uL Normal 150-450 [facility] Comment on above: Performed By: #### C BCA #### [facility] ([address] [place] [address] VIR RBC COUNT 2.83 X10E12/L Low 3.8-5.2 [facility] Comment on above: Performed By: #### C BCA #### [facility] ([address] [place] [address] VIR WBC (Bld) [#/Vol] 3.1 10*3/uL Low 4-11 [facility] Comment on above: Performed By: #### C BCA #### [facility] ([facility]) [address] [place] [address] VIR Glomerular filtration rate ( GFR) estimation in non- AmericanOrdered By: Jackson Mondragon on 12-05-2024 GFR/1.73 sq M.predicted among non-blacks MDRD (S/P/Bld) [Vol rate/Area] mL/min/{1.73_m2} >=60 mL/min/1.73m 2 [facility] - Chemistry and C hemistry - challengeOrdered By: Jackson Mondragon on 12-05-2024 Calcium [Mass/Vol] 8.1 mg/dL Low 8.5-10.1 [facility] Chloride [Moles/Vol] 103 mmol/L 98-107 [facility] CO2 [Moles/Vol] 22.3 mmol/L 21.0-32.0 [facility] Creatinine [Mass/Vol] 0.70 mg/dL 0.55-1.02 [facility] GFR/1.73 sq M.predicted MDRD (S/P/Bld) [Vol rate/Area] mL/min/{1.73_m2} >=60 mL/min/1.73m 2 [facility] Glucose [Mass/Vol] 84 mg/dL 74-106 [facility] Potassium [Moles/Vol] 3.5 mmol/L 3.5-5.1 [facility] Sodium [Moles/Vol] 134 mmol/L Low 136-145 [facility] Urea nitrogen [Mass/Vol] 32.0 mg/dL High 7.0-18.0 [facility] Urea nitrogen/Creatinine [Mass ratio] 45.7 mg/mg [facility] Serum or plasma anion gap de terminationOrdered By: Jackson Mondragon on 12-05-2024 Anion gap [Moles/Vol] 12.2 mmol/L [facility] Glomerular filtration rate ( GFR) estimation in non- AmericanOrdered By: Jackson Mondragon on 12-04-2024 GFR/1.73 sq M.predicted among non-blacks MDRD (S/P/Bld) [Vol rate/Area] 42 mL/min/{1.73_m2} Low >=60 mL/min/1.73m 2 [facility] - Chemistry and C hemistry - challengeOrdered By: Jackson Mondragon on 12-04-2024 Calcium [Mass/Vol] 8.5 mg/dL 8.5-10.1 [facility] Chloride [Moles/Vol] 99 mmol/L 98-107 [facility] CO2 [Moles/Vol] 20.4 mmol/L Low 21.0-32.0 [facility] Creatinine [Mass/Vol] 1.32 mg/dL High 0.55-1.02 [facility] GFR/1.73 sq M.predicted MDRD (S/P/Bld) [Vol rate/Area] 50 mL/min/{1.73_m2} Low >=60 mL/min/1.73m 2 [facility] Glucose [Mass/Vol] 105 mg/dL 74-106 [facility] Potassium [Moles/Vol] 3.9 mmol/L 3.5-5.1 [facility] Sodium [Moles/Vol] 131 mmol/L Low 136-145 [facility] Urea nitrogen [Mass/Vol] 35.0 mg/dL High 7.0-18.0 [facility] Urea nitrogen/Creatinine [Mass ratio] 26.5 mg/mg [facility] Serum or plasma anion gap de terminationOrdered By: Jackson Mondragon on 12-04-2024 Anion gap [Moles/Vol] 15.5 mmol/L [facility] Globulin Calc (S) [Mass/Vol] Ordered By: Jackson Mondragon on 12-03-2024 Globulin (S) [Mass/Vol] 4.6 g/dL [facility] Glomerular filtration rate ( GFR) estimation in non- AmericanOrdered By: Jackson Mondragon on 12-03-2024 GFR/1.73 sq M.predicted among non-blacks MDRD (S/P/Bld) [Vol rate/Area] mL/min/{1.73_m2} >=60 mL/min/1.73m 2 [facility] - Chemistry and C hemistry - challengeOrdered By: Jackson Mondragon on 12-03-2024 Albumin [Mass/Vol] 1.5 g/dL Low 3.4-5.0 [facility] ALP [Catalytic activity/Vol] 260 U/L High 46-116 [facility] ALT [Catalytic activity/Vol] 39 U/L 14-59 [facility] AST [Catalytic activity/Vol] 125 U/L High 15-37 [facility] Bilirubin [Mass/Vol] 0.8 mg/dL 0.2-1.0 [facility] Calcium [Mass/Vol] 9.0 mg/dL 8.5-10.1 [facility] Chloride [Moles/Vol] 97 mmol/L Low 98-107 [facility] CO2 [Moles/Vol] 18.2 mmol/L Low 21.0-32.0 [facility] Creatinine [Mass/Vol] 0.94 mg/dL 0.55-1.02 [facility] GFR/1.73 sq M.predicted MDRD (S/P/Bld) [Vol rate/Area] mL/min/{1.73_m2} >=60 mL/min/1.73m 2 [facility] Glucose [Mass/Vol] 118 mg/dL High 74-106 [facility] Potassium [Moles/Vol] 4.3 mmol/L 3.5-5.1 [facility] Protein [Mass/Vol] 6.1 g/dL Low 6.4-8.2 [facility] Sodium [Moles/Vol] 128 mmol/L Low 136-145 [facility] Urea nitrogen [Mass/Vol] 25.0 mg/dL High 7.0-18.0 [facility] Urea nitrogen/Creatinine [Mass ratio] 26.6 mg/mg [facility] Serum or plasma albumin/glob ulin mass ratioOrdered By: Jackson Mondragon on 12-03-2024 Albumin/Globulin [Mass ratio] 0.3 {ratio} [facility] Serum or plasma anion gap de terminationOrdered By: Jackson Mondragon on 12-03-2024 Anion gap [Moles/Vol] 17.1 mmol/L [facility] Erythrocyte distribution wid th Auto (RBC) [Ratio]Ordered By: Jackson Mondragon on 12-02-2024 Erythrocyte distribution width (RBC) [Ratio] 14.6 % 11.0-15.0 [facility] Globulin Calc (S) [Mass/Vol] Ordered By: Jackson Mondragon on 12-02-2024 Globulin (S) [Mass/Vol] 4.4 g/dL [facility] Glomerular filtration rate ( GFR) estimation in non- AmericanOrdered By: Jackson Mondragon on 12-02-2024 GFR/1.73 sq M.predicted among non-blacks MDRD (S/P/Bld) [Vol rate/Area] mL/min/{1.73_m2} >=60 mL/min/1.73m 2 [facility] Hematocrit Auto (Bld) [Volum e fraction]Ordered By: Jackson Mondragon on 12-02-2024 Hematocrit (Bld) [Volume fraction] 29.7 % Low 36.0-48.0 [facility] Hemoglobin [Mass/volume] in BloodOrdered By: Jackson Mondragon on 12-02-2024 Hemoglobin (Bld) [Mass/Vol] 10.3 g/dL Low 12.0-16.0 [facility] - Chemistry and C hemistry - challengeOrdered By: Jackson Mondragon on 12-02-2024 Calcium [Mass/Vol] 8.7 mg/dL 8.5-10.1 [facility] Chloride [Moles/Vol] 94 mmol/L Low 98-107 [facility] CO2 [Moles/Vol] 19.6 mmol/L Low 21.0-32.0 [facility] Creatinine [Mass/Vol] 0.92 mg/dL 0.55-1.02 [facility] GFR/1.73 sq M.predicted MDRD (S/P/Bld) [Vol rate/Area] mL/min/{1.73_m2} >=60 mL/min/1.73m 2 [facility] Glucose [Mass/Vol] 125 mg/dL High 74-106 [facility] Potassium [Moles/Vol] 4.2 mmol/L 3.5-5.1 [facility] Sodium [Moles/Vol] 127 mmol/L Low 136-145 [facility] Urea nitrogen [Mass/Vol] 22.0 mg/dL High 7.0-18.0 [facility] Urea nitrogen/Creatinine [Mass ratio] 23.9 mg/mg [facility] Albumin [Mass/Vol] 1.6 g/dL Low 3.4-5.0 [facility] ALP [Catalytic activity/Vol] 258 U/L High 46-116 [facility] ALT [Catalytic activity/Vol] 39 U/L 14-59 [facility] AST [Catalytic activity/Vol] 115 U/L High 15-37 [facility] Bilirubin [Mass/Vol] 1.3 mg/dL High 0.2-1.0 [facility] Protein [Mass/Vol] 6.0 g/dL Low 6.4-8.2 [facility] Leukocytes [#/volume] correc patty for nucleated erythrocytes in Blood by Automated counOrdered By: Jackson Mondragon on 12-02-2024 WBC corrected for nucl RBC Auto (Bld) [#/Vol] 9.6 10 3/uL 4.0-11.0 [facility] MCH Auto (RBC) [Entitic mass ]Ordered By: Jackson Mondragon on 12-02-2024 MCH (RBC) [Entitic mass] 33.2 pg 26.7-34.0 [facility] MCHC Auto (RBC) [Mass/Vol]Or dered By: Jackson Mondragon on 12-02-2024 MCHC (RBC) [Mass/Vol] 34.7 g/dL 29.9-35.2 [facility] MCV Auto (RBC) [Entitic vol] Ordered By: Jackson Mondragon on 12-02-2024 MCV (RBC) [Entitic vol] 95.8 fL 81.0-99.0 [facility] No Panel InformationOrdered By: Jackson Mondragon on 12-02-2024 Phosphorus Level 4.1 mg/dL 2.6-4.7 [facility] Platelet mean volume Auto (B ld) [Entitic vol]Ordered By: Jackson Mondragon on 12-02-2024 Platelet mean volume (Bld) [Entitic vol] 10.3 fL 9.5-13.5 [facility] Platelets Auto (Bld) [#/Vol] Ordered By: Jackson Mondragon on 12-02-2024 Platelets (Bld) [#/Vol] 277 10 3/uL 150-450 [facility] RBC Auto (Bld) [#/Vol]Ordere d By: Jackson Mondragon on 12-02-2024 RBC (Bld) [#/Vol] 3.10 10 6/uL Low 4.20-5.40 [facility] Serum or plasma albumin/glob ulin mass ratioOrdered By: Jackson Mondragon on 12-02-2024 Albumin/Globulin [Mass ratio] 0.4 {ratio} [facility] Serum or plasma anion gap de terminationOrdered By: Jackson Mondragon on 12-02-2024 Anion gap [Moles/Vol] 17.6 mmol/L [facility] Erythrocyte distribution wid th Auto (RBC) [Ratio]Ordered By: Jackson Mondragon on 12-01-2024 Erythrocyte distribution width (RBC) [Ratio] 14.2 % 11.0-15.0 [facility] Globulin Calc (S) [Mass/Vol] Ordered By: Jackson Mondragon on 12-01-2024 Globulin (S) [Mass/Vol] 4.0 g/dL [facility] Glomerular filtration rate ( GFR) estimation in non- AmericanOrdered By: Jackson Mondrgaon on 12-01-2024 GFR/1.73 sq M.predicted among non-blacks MDRD (S/P/Bld) [Vol rate/Area] mL/min/{1.73_m2} >=60 mL/min/1.73m 2 [facility] Hematocrit Auto (Bld) [Volum e fraction]Ordered By: Jackson Mondragon on 12-01-2024 Hematocrit (Bld) [Volume fraction] 29.1 % Low 36.0-48.0 [facility] Hemoglobin [Mass/volume] in BloodOrdered By: Jackson Mondragon on 12-01-2024 Hemoglobin (Bld) [Mass/Vol] 10.3 g/dL Low 12.0-16.0 [facility] Laboratory - Chemistry and C hemistry - challengeOrdered By: Jackson Mondragon on 12-01-2024 Calcium [Mass/Vol] 8.3 mg/dL Low 8.5-10.1 [facility] Chloride [Moles/Vol] 90 mmol/L Low 98-107 [facility] CO2 [Moles/Vol] 23.3 mmol/L 21.0-32.0 [facility] Creatinine [Mass/Vol] 0.89 mg/dL 0.55-1.02 [facility] GFR/1.73 sq M.predicted MDRD (S/P/Bld) [Vol rate/Area] mL/min/{1.73_m2} >=60 mL/min/1.73m 2 [facility] Glucose [Mass/Vol] 110 mg/dL High 74-106 [facility] Potassium [Moles/Vol] 3.3 mmol/L Low 3.5-5.1 [facility] Sodium [Moles/Vol] 124 mmol/L Critically low 136-145 [facility] Comment on above: RESULTS CALLED TO NANNETTE HUANG RN at 2214 Urea nitrogen [Mass/Vol] 16.0 mg/dL 7.0-18.0 [facility] Urea nitrogen/Creatinine [Mass ratio] 18.0 mg/mg [facility] Magnesium [Mass/Vol] 1.8 mg/dL 1.8-2.4 [facility] Albumin [Mass/Vol] 1.8 g/dL Low 3.4-5.0 [facility] ALP [Catalytic activity/Vol] 250 U/L High 46-116 [facility] ALT [Catalytic activity/Vol] 32 U/L 14-59 [facility] AST [Catalytic activity/Vol] 80 U/L High 15-37 [facility] Bilirubin [Mass/Vol] 2.0 mg/dL High 0.2-1.0 [facility] CK [Catalytic activity/Vol] 316 U/L High 26-192 [facility] Osmolality [Osmolality] 250 mosm/kg Abnormal 275-295 [facility] Comment on above: Performed at: - [facility] [address] [id number] Director: Ab Giordano MD, Phone: [phone] Protein [Mass/Vol] 5.8 g/dL Low 6.4-8.2 [facility] Laboratory - Chemistry and C hemistry - challengeOrdered By: Maureen Mitchell on 12-01-2024 TSH Qn 3.464 m[IU]/L 0.358-3.740 [facility] Leukocytes [#/volume] correc patty for nucleated erythrocytes in Blood by Automated counOrdered By: Jackson Mondragon on 12-01-2024 WBC corrected for nucl RBC Auto (Bld) [#/Vol] 10.6 10 3/uL 4.0-11.0 [facility] MCH Auto (RBC) [Entitic mass ]Ordered By: Jackson Mondragon on 12-01-2024 MCH (RBC) [Entitic mass] 33.3 pg 26.7-34.0 [facility] MCHC Auto (RBC) [Mass/Vol]Or dered By: Jackson Mondragon on 12-01-2024 MCHC (RBC) [Mass/Vol] 35.4 g/dL High 29.9-35.2 [facility] MCV Auto (RBC) [Entitic vol] Ordered By: Jackson Mondragon on 12-01-2024 MCV (RBC) [Entitic vol] 94.2 fL 81.0-99.0 [facility] No Panel InformationOrdered By: Jackson Mondragon on 12-01-2024 25-Hydroxy Vitamin D Total 134.0 ng/mL [facility] Comment on above: <20 ng/mL Vit D defi cient20-<30 ng/mL Vit D [id number] ng/mL Vit D sufficient>100 ng/mL Potential Toxicity Cortisol AM Sample 79.4 ug/dL Abnormal 6.2-19.4 [facility] Comment on above: Results confirmed on dilution.Performed at: [address] [id number] Director: Marcelo Parikh PhD, Phone: [phone] Troponin I High Sensitivity 12.0 pg/mL 4.0-51.3 [facility] Comment on above: CUT-OFF POINTS HAVE [...] Platelet mean volume Auto (B ld) [Entitic vol]Ordered By: Jackson Mondragon on 12-01-2024 Platelet mean volume (Bld) [Entitic vol] 10.5 fL 9.5-13.5 [facility] Platelets Auto (Bld) [#/Vol] Ordered By: Jackson Mondragon on 12-01-2024 Platelets (Bld) [#/Vol] 244 10 3/uL 150-450 [facility] RBC Auto (Bld) [#/Vol]Ordere d By: Jackson Mondragon on 12-01-2024 RBC (Bld) [#/Vol] 3.09 10 6/uL Low 4.20-5.40 [facility] Serum or plasma albumin/glob ulin mass ratioOrdered By: Jackson Mondragon on 12-01-2024 Albumin/Globulin [Mass ratio] 0.5 {ratio} [facility] Serum or plasma anion gap de terminationOrdered By: Jackson Mondragon on 12-01-2024 Anion gap [Moles/Vol] 14.0 mmol/L [facility] Basophils Auto (Bld) [#/Vol] Ordered By: Isha Holley on 11-30-2024 Basophils (Bld) [#/Vol] 0.0 10 3/uL 0.0-0.1 [facility] Basophils/100 WBC Auto (Bld) Ordered By: Isha Holley on 11-30-2024 Basophils/100 WBC (Bld) 0.1 % Low 0.2-2.0 [facility] Eosinophils/100 WBC Auto (Bl d)Ordered By: Isha Holley on 11-30-2024 Eosinophils/100 WBC (Bld) 0.1 % Low 0.9-7.0 [facility] Erythrocyte distribution wid th Auto (RBC) [Ratio]Ordered By: Isha Hollye on 11-30-2024 Erythrocyte distribution width (RBC) [Ratio] 14.3 % 11.0-15.0 [facility] Globulin Calc (S) [Mass/Vol] Ordered By: Isha Holley on 11-30-2024 Globulin (S) [Mass/Vol] 4.4 g/dL [facility] Glomerular filtration rate ( GFR) estimation in non- AmericanOrdered By: Isha Holley on 11-30-2024 GFR/1.73 sq M.predicted among non-blacks MDRD (S/P/Bld) [Vol rate/Area] mL/min/{1.73_m2} >=60 mL/min/1.73m 2 [facility] Hematocrit Auto (Bld) [Volum e fraction]Ordered By: Isha Holley on 11-30-2024 Hematocrit (Bld) [Volume fraction] 31.3 % Low 36.0-48.0 [facility] Hemoglobin [Mass/volume] in BloodOrdered By: Isha Holley on 11-30-2024 Hemoglobin (Bld) [Mass/Vol] 11.3 g/dL Low 12.0-16.0 [facility] INR in Platelet poor plasma by Coagulation assayOrdered By: Isha Holley on 11-30-2024 INR Coag (PPP) [Relative time] 0.97 {INR} [facility] Comment on above: DESIRED INR:2.0-3.0 CONDITIONS NOT LISTED BELOW2.5-3.5 FOR PROSTHETIC HEART VALVE REPLACEMENT2.5-3.5 RECURRENT THROMBOSIS Laboratory - Chemistry and C hemistry - challengeOrdered By: Maureen Mitchell on 11-30-2024 Bilirubin Ql (U) SMALL Abnormal NEGATIVE [facility] Glucose (U) [Mass/Vol] Negative NEGATIVE [facility] Ketones Ql (U) TRACE mg/dL Abnormal NEGATIVE [facility] pH (U) 5.5 [pH] 5.0-9.0 [facility] Specific gravity (U) [Rel density] 1.015 1.005-1.025 [facility] Urobilinogen Qn (U) 2.0 {[place]'U}/dL Abnormal 0.2-1.0 [facility] Laboratory - Chemistry and C hemistry - challengeOrdered By: Isha Holley on 11-30-2024 HCO3 (Bld) [Moles/Vol] 22.1 mmol/L 22.0-26.0 [facility] Albumin [Mass/Vol] 1.9 g/dL Low 3.4-5.0 [facility] ALP [Catalytic activity/Vol] 285 U/L High 46-116 [facility] ALT [Catalytic activity/Vol] 35 U/L 14-59 [facility] AST [Catalytic activity/Vol] 90 U/L High 15-37 [facility] Bilirubin [Mass/Vol] 2.7 mg/dL High 0.2-1.0 [facility] Calcium [Mass/Vol] 8.7 mg/dL 8.5-10.1 [facility] Chloride [Moles/Vol] 83 mmol/L Critically low 98-107 [facility] Comment on above: RESULTS CALLED TO rosalinda moran rn CK [Catalytic activity/Vol] 565 U/L Critically high 26-192 [facility] Comment on above: RESULTS CALLED TO rosalinda moran rn CO2 [Moles/Vol] 22.8 mmol/L 21.0-32.0 [facility] Creatinine [Mass/Vol] 0.85 mg/dL 0.55-1.02 [facility] GFR/1.73 sq M.predicted MDRD (S/P/Bld) [Vol rate/Area] mL/min/{1.73_m2} >=60 mL/min/1.73m 2 [facility] Glucose [Mass/Vol] 142 mg/dL High 74-106 [facility] Natriuretic peptide B (Bld) [Mass/Vol] 1858.0 pg/mL Critically high <=900.0 [facility] Comment on above: RESULTS CALLED TO rosalinda moran rn Potassium [Moles/Vol] 3.7 mmol/L 3.5-5.1 [facility] Protein [Mass/Vol] 6.3 g/dL Low 6.4-8.2 [facility] Sodium [Moles/Vol] 119 mmol/L Critically low 136-145 [facility] Comment on above: RESULTS CALLED TO rosalinda moran rn Urea nitrogen [Mass/Vol] 10.0 mg/dL 7.0-18.0 [facility] Urea nitrogen/Creatinine [Mass ratio] 11.8 mg/mg [facility] Laboratory - Hematology and Cell countsOrdered By: Isah Holley on 11-30-2024 Immature granulocytes/100 WBC (Bld) 0.6 % High 0.0-0.5 [facility] Laboratory - Specimen inform ationOrdered By: Maureen Mitchell on 11-30-2024 Appearance (U) CLEAR CLEAR [facility] Color (U) DK. ORANGE YELLOW [facility] Laboratory - UrinalysisOrder ed By: Maureen Mitchell on 11-30-2024 Leukocyte esterase Test strip Ql (U) Negative NEGATIVE [facility] Nitrite Ql (U) Negative NEGATIVE [facility] Protein Ql (U) Negative NEG/TRACE [facility] Leukocytes [#/volume] correc patty for nucleated erythrocytes in Blood by Automated counOrdered By: Isha Holley on 11-30-2024 WBC corrected for nucl RBC Auto (Bld) [#/Vol] 10.8 10 3/uL 4.0-11.0 [facility] Lymphocytes Auto (Bld) [#/Vo l]Ordered By: Isha Holley on 11-30-2024 Lymphocytes (Bld) [#/Vol] 1.1 10 3/uL Low 1.2-3.8 [facility] Lymphocytes/100 WBC Auto (Bl d)Ordered By: Isha Holley on 11-30-2024 Lymphocytes/100 WBC (Bld) 10.3 % Low 20.5-60.0 [facility] MCH Auto (RBC) [Entitic mass ]Ordered By: Isha Holley on 11-30-2024 MCH (RBC) [Entitic mass] 33.9 pg 26.7-34.0 [facility] MCHC Auto (RBC) [Mass/Vol]Or dered By: Isha Holley on 11-30-2024 MCHC (RBC) [Mass/Vol] 36.1 g/dL High 29.9-35.2 [facility] MCV Auto (RBC) [Entitic vol] Ordered By: Isha Holley on 11-30-2024 MCV (RBC) [Entitic vol] 94.0 fL 81.0-99.0 [facility] Monocytes Auto (Bld) [#/Vol] Ordered By: Isha Holley on 11-30-2024 Monocytes (Bld) [#/Vol] 1.0 10 3/uL High 0.3-0.8 [facility] Monocytes/100 WBC Auto (Bld) Ordered By: Isha Holley on 11-30-2024 Monocytes/100 WBC (Bld) 8.9 % 1.7-12.0 [facility] Neutrophils Auto (Bld) [#/Vo l]Ordered By: Isha Holley on 11-30-2024 Neutrophils (Bld) [#/Vol] 8.6 10 3/uL High 1.4-6.5 [facility] Neutrophils/100 WBC Auto (Bl d)Ordered By: Isha Holley on 11-30-2024 Neutrophils/100 WBC (Bld) 80.0 % High 43.0-75.0 [facility] No Panel InformationOrdered By: Maureen Mitchell on 11-30-2024 Urine Microscopic Review NO [facility] Urine Occult Blood Negative NEGATIVE [facility] No Panel InformationOrdered By: Jackson Mondragon on 11-30-2024 Urine Osmolality 330 mOsmol/kg . [facility] Comment on above: 24 hr : 300 - 900 Ra ndom: 50 - 1400 After 12hr fluid restriction: >850Performed at: - [facility] [address] [id number] Director: Ab Giordano MD, Phone: [phone] No Panel InformationOrdered By: Isha Holley on 11-30-2024 Hubert Test Positive POSITIVE [facility] Arterial Blood Base Excess -0.9 mmol/L <2.0-2.0 [facility] Arterial Blood Oxygen Saturation 97.9 % [facility] Arterial Blood Partial Pressure CO2 27.4 mm[Hg] Low 35.0-45.0 [facility] Arterial Blood Partial Pressure O2 89.4 mm[Hg] 80.0-100.0 [facility] Arterial Blood pH 7.514 Critically high 7.350-7.450 [facility] Comment on above: RESULTS CALLED TO DR Ana MONZON Blood Gas Liter Flow 3.5 [facility] Blood Gas Sample Site L RAD [facility] Oxygen Delivery Device N/C [facility] Eosinophils # (Auto) 0.0 10 3/uL 0.0-0.7 [facility] Immature Granulocyte # (Auto) 0.06 10 3/uL High 0.00-0.03 [facility] Troponin I High Sensitivity 12.4 pg/mL 4.0-51.3 [facility] Comment on above: CUT-OFF POINTS HAVE [...] Platelet mean volume Auto (B ld) [Entitic vol]Ordered By: Isha Holley on 11-30-2024 Platelet mean volume (Bld) [Entitic vol] 10.4 fL 9.5-13.5 [facility] Platelets Auto (Bld) [#/Vol] Ordered By: Isha Holley on 11-30-2024 Platelets (Bld) [#/Vol] 249 10 3/uL 150-450 [facility] Prothrombin time (PT)Ordered By: Isha Holley on 11-30-2024 PT Coag (PPP) [Time] 10.3 s 9.0-11.6 [facility] RBC Auto (Bld) [#/Vol]Ordere d By: Isha Holley on 11-30-2024 RBC (Bld) [#/Vol] 3.33 10 6/uL Low 4.20-5.40 [facility] Serum or plasma albumin/glob ulin mass ratioOrdered By: Isha Holley on 11-30-2024 Albumin/Globulin [Mass ratio] 0.4 {ratio} [facility] Serum or plasma anion gap de terminationOrdered By: Isha Holley on 11-30-2024 Anion gap [Moles/Vol] 16.9 mmol/L [facility] ANION GAPon 06-11-2024 Anion gap [Moles/Vol] 15.0 mmol/L Normal 8.0-16.0 [facility] Comment on above: Result Comment: ANIO N GAP = Sodium -(Chloride + CO2) Performed By: #### H H, BMP, ANION, EGFR1 #### [facility] [address] [place] [address] Anion Gapon 06-11-2024 Anion gap [Moles/Vol] 15.0 mmol/L 8.0 - 16.0 meq/L [facility] Comment on above: ANION GAP = Sodium - (Chloride + CO2) Performed at [facility] [address] [place] [address] BASIC METABOL PANELon 2024 Calcium [Mass/Vol] 8.7 mg/dL Normal 8.5-10.5 [facility] Comment on above: Performed By: #### E GFR1, BMP, HH, ANION #### [facility] [address] [place] [address] Chloride [Moles/Vol] 100 mmol/L Normal 98-111 [facility] Comment on above: Performed By: #### E GFR1, BMP, HH, ANION #### [facility] [address] [place] [address] CO2 [Moles/Vol] 24 mmol/L Normal 23-33 [facility] Comment on above: Performed By: #### E GFR1, BMP, HH, ANION #### [facility] [address] [place] [address] Creatinine [Mass/Vol] 0.3 mg/dL Low 0.4-1.2 [facility] Comment on above: Performed By: #### E GFR1, BMP, HH, ANION #### [facility] [address] [place] [address] Glucose [Mass/Vol] 109 mg/dL High 70-108 [facility] Comment on above: Performed By: #### E GFR1, BMP, HH, ANION #### [facility] [address] [place] [address] Potassium [Moles/Vol] 3.2 mmol/L Low 3.5-5.2 [facility] Comment on above: Performed By: #### E GFR1, BMP, HH, ANION #### [facility] [address] [place] [address] Sodium [Moles/Vol] 139 mmol/L Normal 135-145 [facility] Comment on above: Performed By: #### E GFR1, BMP, HH, ANION #### [facility] [address] [place] [address] Urea nitrogen [Mass/Vol] 4 mg/dL Low 7-22 [facility] Comment on above: Performed By: #### E GFR1, BMP, HH, ANION #### [facility] [address] [place] [address] Basic metabolic 2000 panelon 06-11-2024 Calcium [Mass/Vol] 8.7 mg/dL 8.5 - 10.5 mg/dL [facility] Comment on above: Performed at [facility] [address] [place] [address] Chloride [Moles/Vol] 100 mmol/L 98 - 111 meq/L [facility] CO2 [Moles/Vol] 24 mmol/L 23 - 33 meq/L [facility] [employer] Creatinine [Mass/Vol] 0.3 mg/dL Low 0.4 - 1.2 mg/dL [facility] Glucose [Mass/Vol] 109 mg/dL High 70 - 108 mg/dL [facility] [employer] Interpretation and review of laboratory results Abnormal [facility] [employer] Potassium [Moles/Vol] 3.2 mmol/L Low 3.5 - 5.2 meq/L [facility] [employer] Sodium [Moles/Vol] 139 mmol/L 135 - 145 meq/L [facility] Urea nitrogen [Mass/Vol] 4 mg/dL Low 7 - 22 mg/dL [facility] GFR, ESTIMATEDon 06-11-2024 GFR/1.73 sq M.predicted MDRD (S/P/Bld) [Vol rate/Area] mL/min/{1.73_m2} Normal >60 [facility] Comment on above: Pediatric calculator link https://www.kidney.org/professionals/kdoqi/gfr_calculatorped Effective Feb 25, 2022 These [...] therapy that affects renal tubular secretion. Performed at [facility] [place] [address] Result Comment: Cira miltonc calculator link https://www.kidney.org/professionals/kdoqi/gfr_calculatorped Effective Feb 25, 2022 These [...] renal tubular secretion. Performed By: #### H H, BMP, ANION, EGFR1 #### [facility] [address] [place] [address] HGB,HCTon 06-11-2024 Hematocrit (Bld) [Volume fraction] 28.7 % Low 37.0-47.0 [facility] [employer] Comment on above: Performed at [facility] [place] [address] Performed By: #### E GFR1, BMP, HH, ANION #### [facility] [address] [place] [address] Hemoglobin (Bld) [Mass/Vol] 9.1 g/dL Low 12.0-16.0 [facility] Comment on above: Performed By: #### E GFR1, BMP, HH, ANION #### [facility] [address] [place] [address] Hemoglobin and Hematocrit pa kathryn (Bld)on 06-11-2024 Interpretation and review of laboratory results Abnormal [facility] [employer] [facility] [employer] No Panel Informationon 06-11 [facility] [employer] ANION GAPon 06-10-2024 Anion gap [Moles/Vol] 15.0 mmol/L Normal 8.0-16.0 [facility] Comment on above: Result Comment: ANIO N GAP = Sodium -(Chloride + CO2) Performed By: #### A RUTH MCMILLAN HH, BMP #### [facility] [address] [place] [address] Anion Gapon 06-10-2024 Anion gap [Moles/Vol] 15.0 mmol/L 8.0 - 16.0 meq/L [facility] Comment on above: ANION GAP = Sodium - (Chloride + CO2) Performed at [facility] [address] [place] [address] BASIC METABOL PANELon 2024 Calcium [Mass/Vol] 8.7 mg/dL Normal 8.5-10.5 [facility] Comment on above: Performed By: #### A RUTH MCMILLAN HH, BMP #### [facility] [address] [place] [address] Chloride [Moles/Vol] 107 mmol/L Normal 98-111 [facility] Comment on above: Performed By: #### A RUTH MCMILLAN HH, BMP #### [facility] [address] [place] [address] CO2 [Moles/Vol] 24 mmol/L Normal 23-33 [facility] Comment on above: Performed By: #### A RUTH MCMILLAN HH, BMP #### [facility] [address] [place] [address] Creatinine [Mass/Vol] 0.4 mg/dL Normal 0.4-1.2 [facility] Comment on above: Performed By: #### A RUTH MCMILLAN HH, BMP #### [facility] [address] [place] [address] Glucose [Mass/Vol] 110 mg/dL High 70-108 [facility] Comment on above: Performed By: #### A RUTH MCMILLAN HH, BMP #### [facility] [address] [place] [address] Potassium [Moles/Vol] 3.3 mmol/L Low 3.5-5.2 [facility] Comment on above: Performed By: #### A RUTH MCMILLAN HH, BMP #### [facility] [address] [place] [address] Sodium [Moles/Vol] 146 mmol/L High 135-145 [facility] Comment on above: Performed By: #### A RUTH MCMILLAN, AMANDA, BMP #### [facility] [address] [place] [address] Urea nitrogen [Mass/Vol] 4 mg/dL Low 7-22 [facility] Comment on above: Performed By: #### A RUTH MCMILLAN, AMANDA, BMP #### [facility] [address] [place] [address] Basic metabolic 2000 panelon 06-10-2024 Calcium [Mass/Vol] 8.7 mg/dL 8.5 - 10.5 mg/dL [facility] Comment on above: Performed at [facility] [address] [place] [address] Chloride [Moles/Vol] 107 mmol/L 98 - 111 meq/L [facility] CO2 [Moles/Vol] 24 mmol/L 23 - 33 meq/L [facility] Creatinine [Mass/Vol] 0.4 mg/dL 0.4 - 1.2 mg/dL [facility] Glucose [Mass/Vol] 110 mg/dL High 70 - 108 mg/dL Ronal n [facility] Interpretation and review of laboratory results Abnormal [facility] Potassium [Moles/Vol] 3.3 mmol/L Low 3.5 - 5.2 meq/L [facility] Sodium [Moles/Vol] 146 mmol/L High 135 - 145 meq/L B on [facility] Urea nitrogen [Mass/Vol] 4 mg/dL Low 7 - 22 mg/dL [facility] EKG 12 Leadon 06-10-2024 Atrial Rate 100 BPM [facility] P [place] 16 degrees Bon [facility] P-R Interval 158 ms [facility] Q-T Interval 346 ms [facility] QRS Duration 86 ms [facility] QTc Calculation (Bazett) 446 ms [facility] R [place] 27 degrees [facility] T [place] 65 degrees [facility] Ventricular Rate [address] [facility] Normal sinus rhythm Nonspecific ST and T wave abnormality Abnormal ECG Confirmed by JASPER CARDOZO ([id number]) on 06/10/2024 11:52:42 AM [facility] Jasper Grover MD - 06/10/2024 Normal sinus rhythm Nonspecific ST and T wave abnormality Abnormal ECG Confirmed by JASPER CARDOZO ([id number]) on 06/10/2024 11:52:42 AM [facility] GFR, ESTIMATEDon 06-10-2024 GFR/1.73 sq M.predicted MDRD (S/P/Bld) [Vol rate/Area] mL/min/{1.73_m2} Normal >60 [facility] Comment on above: Pediatric calculator link https://www.kidney.org/professionals/kdoqi/gfr_calculatorped Effective Feb 25, 2022 These [...] therapy that affects renal tubular secretion. Performed at [place] [address] Result Comment: Pedi atric calculator link https://www.kidney.org/professionals/kdoqi/gfr_calculatorped Effective Feb 25, 2022 These [...] affects renal tubular secretion. Performed By: #### A HIPOLITO, EGFR1, HH, BMP #### [facility] [address] [place] [address] HGB,HCTon 06-10-2024 Hematocrit (Bld) [Volume fraction] 28.0 % Low 37.0-47.0 [facility] Comment on above: Performed at [facility] [address] [place] [address] Performed By: #### A RUTH MCMILLAN, AMANDA, BMP #### [facility] [address] [place] [address] Hemoglobin (Bld) [Mass/Vol] 9.0 g/dL Low 12.0-16.0 [facility] Comment on above: Performed By: #### A RUTH MCMILLAN HH, BMP #### [facility] [address] [place] [address] Hemoglobin and Hematocrit pa kathryn (Bld)on 06-10-2024 Interpretation and review of laboratory results Abnormal [employer] No Panel Informationon 06-10 [facility] XR WRIST LEFT (MIN 3 VIEWS)o n 06-10-2024 XR WRIST LEFT (MIN 3 VIEWS) XR WRIST LEFT (MIN 3 VIEWS) CLINICAL [...] by: Levy Hayes MD 06/10/24 Final result Normal [facility] XR Wrist - left 3 Viewson Soft tissue swelling. No acute fracture. This report has been created using voice recognition software. It may contain minor errors which are inherent in voice recognition technology. Electronically signed by Dr. Levy Hayes [facility] XR WRIST LEFT (MIN 3 VIEWS) CLINICAL INFORMATION: Fall left wrist pain COMPARISON: No prior study. TECHNIQUE: Standard views of the wrist were obtained FINDINGS: Mild soft tissue swelling overlies the dorsal aspect of the wrist. No acute fracture is seen. There is some mild deformity of the distal radius. Cannot exclude an old healed fracture. [facility] Levy Hayes MD - 06/10/2024 XR WRIST LEFT (MIN 3 VIEWS) CLINICAL [...] technology. Electronically signed by Dr. Levy Hayes [facility] Radiology Study observation (narrative) [facility] ANION GAPon 06-09-2024 Anion gap [Moles/Vol] 16.0 mmol/L Normal 8.0-16.0 [facility] Comment on above: Result Comment: ANIO N GAP = Sodium -(Chloride + CO2) Performed By: #### H H, BMP, ANION, EGFR1 #### [facility] [address] [place] [address] Anion Gapon 06-09-2024 Anion gap [Moles/Vol] 16.0 mmol/L 8.0 - 16.0 meq/L [facility] Comment on above: ANION GAP = Sodium - (Chloride + CO2) Performed at [facility] [address] [place] [address] BASIC METABOL PANELon 2024 Calcium [Mass/Vol] 8.4 mg/dL Low 8.5-10.5 [facility] Comment on above: Performed By: #### H H, BMP, ANION, EGFR1 #### [facility] [address] [place] [address] Chloride [Moles/Vol] 103 mmol/L Normal 98-111 [facility] Comment on above: Performed By: #### H H, BMP, ANION, EGFR1 #### [facility] [address] [place] [address] CO2 [Moles/Vol] 20 mmol/L Low 23-33 [facility] Comment on above: Performed By: #### H H, BMP, ANION, EGFR1 #### [facility] [address] [place] [address] Creatinine [Mass/Vol] 0.6 mg/dL Normal 0.4-1.2 [facility] Comment on above: Performed By: #### H H, BMP, ANION, EGFR1 #### [facility] [address] [place] [address] Glucose [Mass/Vol] 107 mg/dL Normal 70-108 [facility] Comment on above: Performed By: #### H H, BMP, ANION, EGFR1 #### [facility] [address] [place] [address] Potassium [Moles/Vol] 4.3 mmol/L Normal 3.5-5.2 [facility] Comment on above: Performed By: #### H H, BMP, ANION, EGFR1 #### [facility] [employer] [address] [place] [address] Sodium [Moles/Vol] 139 mmol/L Normal 135-145 [facility] Comment on above: Performed By: #### H H, BMP, ANION, EGFR1 #### [facility] [address] [place] [address] Urea nitrogen [Mass/Vol] mg/dL Low 7-22 [facility] Comment on above: Performed By: #### H H, BMP, ANION, EGFR1 #### [facility] [address] [place] [address] Basic metabolic 2000 panelon 06-09-2024 Calcium [Mass/Vol] 8.4 mg/dL Low 8.5 - 10.5 mg/dL [facility] [employer] Comment on above: Performed at [facility] [address] [place] [address] Chloride [Moles/Vol] 103 mmol/L 98 - 111 meq/L [facility] [employer] CO2 [Moles/Vol] 20 mmol/L Low 23 - 33 meq/L Bon [facility] [employer] [facility] Creatinine [Mass/Vol] 0.6 mg/dL 0.4 - 1.2 mg/dL [facility] [employer] Glucose [Mass/Vol] 107 mg/dL 70 - 108 mg/dL [facility] [employer] Interpretation and review of laboratory results Abnormal [facility] Potassium [Moles/Vol] 4.3 mmol/L 3.5 - 5.2 meq/L [facility] Sodium [Moles/Vol] 139 mmol/L 135 - 145 meq/L [facility] [employer] Urea nitrogen [Mass/Vol] mg/dL Low 7 - 22 mg/dL [facility] EKG 12 LeadOrdered By: Maritza Cardozo on 06-09-2024 Atrial Rate 117 BPM [facility] Work Phone: P [place] 23 degrees [facility] Work Phone: P-R Interval 154 ms [facility] Work Phone: Q-T Interval 328 ms [facility] Work Phone: QRS Duration 90 ms [facility] Work Phone: QTc Calculation (Bazett) 457 ms [facility] Work Phone: R [place] 26 degrees [facility] Work Phone: T [place] 120 degrees [facility] Work Phone: Ventricular Rate 117 BPM [facility] [employer] Work Phone: [facility] Work Phone: EKG 12 Leadon 06-09-2024 Sinus tachycardia LVH with repolarization abnormality ( [employer]yo product ) Cannot rule out Inferior infarct , age undetermined Abnormal ECG No previous ECGs available Confirmed by JASPER CARDOZO ([id number]) on 06/09/2024 11:36:47 AM [facility] [facility] STR MUSE Jasper Cardozo MD - 06/09/2024 Sinus tachycardia LVH with repolarization abnormality ( Ayo product ) Cannot rule out Inferior infarct , age undetermined Abnormal ECG No previous ECGs available Confirmed by JASPER CARDOZO ([id number]) on 06/09/2024 11:36:47 AM [facility] [place] [employer] EKG 12-LEADon 06-09-2024 EKG 12-LEAD 100 100 158 86 346 446 16 27 65 Normal sinus rhythm Nonspecific ST and T wave abnormality Abnormal ECG Confirmed by JASPER CARDZOO ([id number]) on 06/10/2024 11:52:42 AM [email or web address]?[email or web address] teTime?[email or web address] [id number]&Date=09-06-19 25&Time=23%3a47%3a11 %3a00&TestType=ECG&S ite=3&OutputType=PDF &Ext=PDF Normal [facility] EKG 12-LEAD 117 117 154 90 328 457 23 26 120 Sinus tachycardia LVH with repolarization abnormality ( Ayo product ) Cannot rule out Inferior infarct , age undetermined Abnormal ECG No previous ECGs available Confirmed by JASPER CARDOZO ([id number]) on 06/09/2024 11:36:47 AM [email or web address]?RetrieveTestByDa teTime?[email or web address] [id number]&Date=09-06-19 25&Time=11%3a22%3a29 %3a00&TestType=ECG&S ite=3&OutputType=PDF &Ext=PDF Normal [facility] GFR, ESTIMATEDon 06-09-2024 GFR/1.73 sq M.predicted MDRD (S/P/Bld) [Vol rate/Area] mL/min/{1.73_m2} Normal >60 [facility] Comment on above: Pediatric calculator link https://www.kidney.org/professionals/kdoqi/gfr_calculatorped Effective Feb 25, 2022 These [...] therapy that affects renal tubular secretion. Performed at [facility] [address] [place] [id number] Result Comment: Cira atric calculator link [email or web address]://www.kidney.org/professionals/kdoqi/gfr_calculatorped Effective Feb 25, 2022 These [...] renal tubular secretion. Performed By: #### H H, BMP, ANION, EGFR1 #### [facility] [employer] [address] [place] [address] HGB,HCTon 06-09-2024 Hematocrit (Bld) [Volume fraction] 31.1 % Low 37.0-47.0 [facility] Comment on above: Performed By: #### H H, BMP, ANION, EGFR1 #### [facility] [employer] [facility] [address] [address] Hemoglobin (Bld) [Mass/Vol] 9.8 g/dL Low 12.0-16.0 [facility] Comment on above: Performed By: #### H H, BMP, ANION, EGFR1 #### [facility] [address] [address] Hemoglobin and Hematocrit pa kathryn (Bld)on 06-09-2024 Hematocrit (Bld) [Volume fraction] 31.1 % Low 37.0 - 47.0 % [facility] [place] [employer] Comment on above: Performed at [facility] [address] [place] [address] Hemoglobin (Bld) [Mass/Vol] 9.8 g/dL Low [facility] [employer] Interpretation and review of laboratory results Abnormal [employer] No Panel Informationon 06-09 NEBOTRADE XR LUMBAR SPINE 1 VWon 06-09 XR LUMBAR SPINE 1 VW MOBILE LATERAL LUMBAR SPINE: CLINICAL INFORMATION: surgery [...] by: Levy Hayes MD 06/09/24 Final result Normal [facility] XR Lumbar spine Single viewo n 06-09-2024 Postop appearance of the lumbar spine. This report has been created using voice recognition software. It may contain minor errors which are inherent in voice recognition technology. Electronically signed by Dr. Levy Hayes [facility] MOBILE LATERAL LUMBAR SPINE: CLINICAL INFORMATION: surgery COMPARISON: No prior study. TECHNIQUE: A single lateral mobile view of the lumbar spine was obtained following surgery. FINDINGS: Posterior lumbar fusion has been performed with pedicle screws and rods bridging the L4-5 level posteriorly. [facility] Levy Hayes MD - 06/09/2024 MOBILE LATERAL LUMBAR SPINE: CLINICAL INFORMATION: surgery [...] technology. Electronically signed by Dr. Levy Hayes [facility] XR LUMBAR SPINE 1 VWon 06-08 XR LUMBAR SPINE 1 VW MOBILE LATERAL LUMBAR SPINE: CLINICAL INFORMATION: surgery [...] by: Levy Hayes MD 06/08/24 Final result Normal [facility] XR Lumbar spine Single viewo n 06-08-2024 Radiology Study observation (narrative) [facility] Intraoperative appearance of the lumbar spine. This report has been created using voice recognition software. It may contain minor errors which are inherent in voice recognition technology. Electronically signed by Dr. Levy Hayes [facility] MOBILE LATERAL LUMBAR SPINE: CLINICAL INFORMATION: surgery COMPARISON: No prior study. TECHNIQUE: A single lateral mobile view of the lumbar spine was obtained For localization purposes. FINDINGS: 2 spinal needles are present posteriorly, directed at the L3-4 and L4-5 disc spaces. [facility] Levy Mcgee MD - 06/08/2024 MOBILE LATERAL LUMBAR SPINE: CLINICAL INFORMATION: surgery [...] technology. Electronically signed by Dr. Levy Hayes [facility] [employer] Radiology Study observation (narrative) NEBOTRADE XR Lumbar spine Single viewO rdered By: Levy Hayes on 06-08-2024 [facility] [employer] Work Phone: Estimated glomerular filtrat ion rate (GFR) non- Americanon 05-06-2024 GFR/1.73 sq M.predicted among non-blacks MDRD (S/P/Bld) [Vol rate/Area] Estimated glomerular filtration rate (GFR) non- >=60 mL/min/1.73m 2 [facility] Laboratory - Chemistry and C hemistry - challengeon 05-06-2024 Calcium [Mass/Vol] 8.9 mg/dL 8.5-10.1 [facility] Chloride [Moles/Vol] 101 mmol/L 98-107 [facility] CO2 [Moles/Vol] 24.2 mmol/L 21.0-32.0 [facility] Creatinine [Mass/Vol] 0.62 mg/dL 0.55-1.02 [facility] GFR/1.73 sq M.predicted MDRD (S/P/Bld) [Vol rate/Area] mL/min/{1.73_m2} >=60 mL/min/1.73m 2 [facility] Glucose [Mass/Vol] 98 mg/dL 74-106 [facility] Potassium [Moles/Vol] 3.3 mmol/L Low 3.5-5.1 [facility] Sodium [Moles/Vol] 138 mmol/L 136-145 [facility] Urea nitrogen [Mass/Vol] mg/dL Low 7.0-18.0 [facility] Urea nitrogen/Creatinine [Mass ratio] 1.6 mg/mg [facility] Serum or plasma anion gap de terminationon 05-06-2024 Anion gap [Moles/Vol] Serum or plasma anion gap determination [facility] Appearance of UrineOrdered B y: Maureen Mitchell on 04-29-2024 Appearance (U) Urine appearance Abnormal Clear [facility] Bacteria [Presence] in Urine by AutomatedOrdered By: Maureen Mitchell on 04-29-2024 Bacteria Auto Ql (U) Bacteria [Presence] in Urine by Automated High None Seen [facility] Bilirubin Test strip Ql (U)O rdered By: Maureen Mitchell on 04-29-2024 Bilirubin Ql (U) Bilirubin.total [Presence] in Urine by Test strip Negative [facility] Color Auto (U)Ordered By: Thanh Mitchell on 04-29-2024 Color (U) Color of Urine by Auto Yellow [facility] Dipstick and Microscopicon 1 06-30-2023 Appearance (U) Cloudy Critically abnormal Clear [facility] Comment on above: Order Comment: Name Collection Type:: Voided Performed By: #### C UU, ADDONUAPLUS #### [facility] [address] [id number] [place] Bacteria,Urine 4+ High None Seen [facility] Comment on above: Order Comment: Name Collection Type:: Voided Performed By: #### C UU, ADDONUAPLUS #### [facility] [address] [place] [address] [place] Bilirubin,Urine Negative Normal Negative [facility] Comment on above: Order Comment: Name Collection Type:: Voided Performed By: #### C UU, ADDONUAPLUS #### [facility] [address] [place] [address] [place] Color (U) Light-Yellow Normal Yellow [facility] Comment on above: Order Comment: Name Collection Type:: Voided Performed By: #### C UU, ADDONUAPLUS #### [address] Glucose Ql (U) Normal Normal Normal [facility] Comment on above: Order Comment: Name Collection Type:: Voided Performed By: #### C UU, ADDONUAPLUS #### [place] [address] [place] Hyaline Casts,Urine 0 [LPF] Normal 0-8 [facility] Comment on above: Order Comment: Name Collection Type:: Voided Performed By: #### C UU, ADDONUAPLUS #### [address] Ketones Ql (U) Negative Normal Negative [facility] Comment on above: Order Comment: Name Collection Type:: Voided Performed By: #### C UU, ADDONUAPLUS #### [address] Leukocyte esterase Test strip Ql (U) 4+ High Negative [facility] Comment on above: Order Comment: Name Collection Type:: Voided Performed By: #### C UU, ADDONUAPLUS #### [place] [address] [place] Mucus,Urine Rare Normal [facility] Comment on above: Order Comment: Name Collection Type:: Voided Result Comment: PERF ORMED BY: [place] [address] PATHOLOGIST PET [employer] CONCIERGE RICHARD FAIR M.D. Performed By: #### C UU, ADDONUAPLUS #### [place] [address] [place] Nitrite,Urine Negative Normal Negative [facility] Comment on above: Order Comment: Name Collection Type:: Voided Performed By: #### C UU, ADDONUAPLUS #### [address] Occult Blood,Urine Negative Normal Negative [facility] Comment on above: Order Comment: Name Collection Type:: Voided Result Comment: PERF ORMED BY: [place] [address] PATHOLOGIST PET [employer] CONCIERGE RICHARD FAIR M.D. Performed By: #### C UU, ADDONUAPLUS #### [address] pH (U) 5.5 [pH] Normal 5.0-9.0 [facility] Comment on above: Order Comment: Name Collection Type:: Voided Performed By: #### C UU, ADDONUAPLUS #### [address] Protein,Urine Negative Normal Negative [facility] Comment on above: Order Comment: Name Collection Type:: Voided Performed By: #### C UU, ADDONUAPLUS #### [address] RBC,Urine 3 [HPF] Normal 0-4 [facility] Comment on above: Order Comment: Name Collection Type:: Voided Performed By: #### C UU, ADDONUAPLUS #### [address] Specificy [place],Urine 1.011 Normal 1.001-1.030 [facility] Comment on above: Order Comment: Name Collection Type:: Voided Performed By: #### C UU, ADDONUAPLUS #### [address] Squamous Epithelial Cell,Urine 3 [HPF] High 0-2 [facility] Comment on above: Order Comment: Name Collection Type:: Voided Performed By: #### C UU, ADDONUAPLUS #### [address] Urobilinogen,Urine Normal Normal Normal [facility] Comment on above: Order Comment: Name Collection Type:: Voided Performed By: #### C UU, ADDONUAPLUS #### [address] WBC CLUMP, Urine Many High None Seen [facility] Comment on above: Order Comment: Name Collection Type:: Voided Performed By: #### C UU, ADDONUAPLUS #### [facility] [address] WBC,Urine 50 [HPF] High 0-4 [facility] Comment on above: Order Comment: Name Collection Type:: Voided Performed By: #### C UU, ADDONUAPLUS #### [facility] [address] Epithelial cells.squamous [# /area] in Urine sediment by Automated countOrdered By: Maureen Mitchell on 04-29-2024 Epithelial cells.squamous Auto (Urine sed) [#/Area] Epithelial cells.squamous [#/area] in Urine sediment by Automated count High 0-2 [facility] Erythrocytes [#/area] in Uri ne sediment by Automated countOrdered By: Maureen Mitchell on 04-29-2024 RBC Auto (Urine sed) [#/Area] Erythrocytes [#/area] in Urine sediment by Automated count 0-4 [facility] Glucose [Mass/volume] in Uri ne by Test stripOrdered By: Maureen Mitchell on 04-29-2024 Glucose Test strip (U) [Mass/Vol] Glucose [Mass/volume] in Urine by Test strip Normal [facility] Hemoglobin Test strip Ql (U) Ordered By: Maureen Mitchell on 04-29-2024 Hemoglobin Ql (U) Hemoglobin [Presence] in Urine by Test strip Negative [facility] Hyaline casts [#/area] in Ur ine sediment by Automated countOrdered By: Maureen Mitchell on 04-29-2024 Hyaline casts Auto (Urine sed) [#/Area] Hyaline casts [#/area] in Urine sediment by Automated count 0-8 [facility] Ketones Test strip Ql (U)Ord ered By: Maureen Mitchell on 04-29-2024 Ketones Ql (U) Ketones [Presence] in Urine by Test strip Negative [facility] Leukocyte clumps [Presence] in Urine by AutomatedOrdered By: Maureen Mitchell on 04-29-2024 Leukocyte clumps Auto Ql (U) Leukocyte clumps [Presence] in Urine by Automated High None Seen [facility] Leukocyte esterase [Presence ] in Urine by Test stripOrdered By: Maureen Mitchell on 04-29-2024 Leukocyte esterase Test strip Ql (U) Leukocyte esterase [Presence] in Urine by Test strip High Negative [facility] Leukocytes [#/area] in Urine sediment by Automated countOrdered By: Maureen Mitchell on 04-29-2024 WBC Auto (Urine sed) [#/Area] Leukocytes [#/area] in Urine sediment by Automated count High 0-4 [facility] Mucus [Presence] in Urine by AutomatedOrdered By: Maureen Mitchell on 04-29-2024 Mucus Auto Ql (U) Mucus [Presence] in Urine by Automated [facility] Nitrite Test strip Ql (U)Ord ered By: Maureen Mitchell on 04-29-2024 Nitrite Ql (U) Nitrite [Presence] in Urine by Test strip Negative [facility] Protein Test strip (U) [Mass /Vol]Ordered By: Maureen Mitchell on 04-29-2024 Protein (U) [Mass/Vol] Protein [Mass/volume] in Urine by Test strip Negative [facility] Specific gravity Test strip (U) [Rel density]Ordered By: Maureen Mitchell on 04-29-2024 Specific gravity (U) [Rel density] Specific gravity of Urine by Test strip 1.001-1.030 [facility] Urine Cultureon 04-29-2024 Bacteria identified Cx Nom (U) ORGANISM: Klebsiella pneumoniae (O:KLEPNE) [place] Count >100,000 Aerobic LUBNA Charge (NMIC56) ----- SUSCEPTIBILITY ---- ORGANISM: O:KLEPNE ANTIBIOTIC INTERPRETATION LUBNA Amikacin S <16 Amoxacillin/K Clavulanate S <8 Ampicillin/Sulbactam S 88/4 Aztreonam S <4 Cefazolin S <2 Cefepime S <2 Ceftazidime S <1 Ceftazidime/Avibacta m S <4 Ceftolozane/Tazobact am S <2 Ceftriaxone S <1 Cefuroxime S <4 Ciprofloxacin S <0.25 Ertapenem S <0.5 Gentamicin S <2 Levofloxacin S <0.5 Meropenem S <1 Meropenem/Vaborbacta m S <2 Nitrofurantoin S <32 Piperacillin/Tazobac rodriguez S <8 Tetracycline S <4 Tigecycline S <2 Tobramycin S <2 Trimethoprim/Sulfame thoxazole S <0.5 S = SUSCEPTIBLE I = [...] RESISTANT TO ALL B-LACTAM DRUGS. PERFORMED BY: [place] [address] PATHOLOGIST PET [employer]ORT CONCIERGE RICHARD FAIR M.D. Normal [facility] Comment on above: Performed By: #### C UU, ADDONUAPLUS #### [address] Urine cultureOrdered By: Essence Mitchell on 04-29-2024 Bacteria identified Cx Nom (U) Abnormal [facility] Urobilinogen Test strip (U) [Mass/Vol]Ordered By: Maureen Mitchell on 04-29-2024 Urobilinogen (U) [Mass/Vol] Urobilinogen [Mass/volume] in Urine by Test strip Normal [facility] pH Test strip (U)Ordered By: Maureen Mitchell on 04-29-2024 pH (U) pH of Urine by Test strip 5.0-9.0 [facility] ECG 12 lead (Clinic Performe d)on 04-07-2024 Sinus tachycardia [facility] Work Phone: Activated partial thrombopla stin time (aPTT) in platelet poor plasma by coagulation aon 04-01-2024 aPTT Coag (PPP) [Time] Activated partial thromboplastin time (aPTT) in platelet poor plasma by coagulation a 22.3-36.2 [facility] Basophils Auto (Bld) [#/Vol] on 04-01-2024 Basophils (Bld) [#/Vol] Automated basophil count 0.0-0.1 [facility] Basophils/100 WBC Auto (Bld) on 04-01-2024 Basophils/100 WBC (Bld) Automated basophil % 0.2-2.0 [facility] Eosinophils/100 WBC Auto (Bl d)on 04-01-2024 Eosinophils/100 WBC (Bld) Automated eosinophil % 0.9-7.0 [facility] Erythrocyte distribution wid th Auto (RBC) [Ratio]on 04-01-2024 Erythrocyte distribution width (RBC) [Ratio] Erythrocyte distribution width [Ratio] by Automated count High 11.0-15.0 [facility] Estimated glomerular filtrat ion rate (GFR) non- Americanon 04-01-2024 GFR/1.73 sq M.predicted among non-blacks MDRD (S/P/Bld) [Vol rate/Area] Estimated glomerular filtration rate (GFR) non- >=60 mL/min/1.73m 2 [facility] Hematocrit Auto (Bld) [Volum e fraction]on 04-01-2024 Hematocrit (Bld) [Volume fraction] Hematocrit [Volume Fraction] of Blood by Automated count 36.0-48.0 [facility] Hemoglobin [Mass/volume] in Bloodon 04-01-2024 Hemoglobin (Bld) [Mass/Vol] Hemoglobin [Mass/volume] in Blood 12.0-16.0 [facility] INR in Platelet poor plasma by Coagulation assayon 04-01-2024 INR Coag (PPP) [Relative time] INR in Platelet poor plasma by Coagulation assay [facility] Comment on above: DESIRED INR:2.0-3.0 CONDITIONS NOT LISTED BELOW2.5-3.5 FOR PROSTHETIC HEART VALVE REPLACEMENT2.5-3.5 RECURRENT THROMBOSIS Laboratory - Chemistry and C hemistry - challengeon 04-01-2024 Calcium [Mass/Vol] 8.6 mg/dL 8.5-10.1 [facility] Chloride [Moles/Vol] 94 mmol/L Low 98-107 [facility] CO2 [Moles/Vol] 23.7 mmol/L 21.0-32.0 [facility] Creatinine [Mass/Vol] 0.71 mg/dL 0.55-1.02 [facility] GFR/1.73 sq M.predicted MDRD (S/P/Bld) [Vol rate/Area] mL/min/{1.73_m2} >=60 mL/min/1.73m 2 [facility] Glucose [Mass/Vol] 74 mg/dL 74-106 [facility] Potassium [Moles/Vol] 5.0 mmol/L 3.5-5.1 [facility] Sodium [Moles/Vol] 129 mmol/L Low 136-145 [facility] Urea nitrogen [Mass/Vol] 7.0 mg/dL 7.0-18.0 [facility] Urea nitrogen/Creatinine [Mass ratio] 9.9 mg/mg [facility] Laboratory - Hematology and Cell countson 04-01-2024 Immature granulocytes/100 WBC (Bld) 0.0 % 0.0-0.5 [facility] Leukocytes [#/volume] correc patty for nucleated erythrocytes in Blood by Automated counon 04-01-2024 WBC corrected for nucl RBC Auto (Bld) [#/Vol] Leukocytes [#/volume] corrected for nucleated erythrocytes in Blood by Automated coun 4.0-11.0 [facility] Lymphocytes Auto (Bld) [#/Vo l]on 04-01-2024 Lymphocytes (Bld) [#/Vol] Lymphocytes [#/volume] in Blood by Automated count 1.2-3.8 [facility] Lymphocytes/100 WBC Auto (Bl d)on 04-01-2024 Lymphocytes/100 WBC (Bld) Lymphocytes/100 leukocytes in Blood by Automated count 20.5-60.0 [facility] MCH Auto (RBC) [Entitic mass ]on 04-01-2024 MCH (RBC) [Entitic mass] MCH [Entitic mass] by Automated count 26.7-34.0 [facility] MCHC Auto (RBC) [Mass/Vol]on 04-01-2024 MCHC (RBC) [Mass/Vol] MCHC [Mass/volume] by Automated count 29.9-35.2 [facility] MCV Auto (RBC) [Entitic vol] on 04-01-2024 MCV (RBC) [Entitic vol] MCV [Entitic volume] by Automated count 81.0-99.0 [facility] Monocytes Auto (Bld) [#/Vol] on 04-01-2024 Monocytes (Bld) [#/Vol] Automated blood monocyte count 0.3-0.8 [facility] Monocytes/100 WBC Auto (Bld) on 04-01-2024 Monocytes/100 WBC (Bld) Automated monocyte % 1.7-12.0 [facility] Neutrophils Auto (Bld) [#/Vo l]on 04-01-2024 Neutrophils (Bld) [#/Vol] Neutrophils [#/volume] in Blood by Automated count 1.4-6.5 [facility] Neutrophils/100 WBC Auto (Bl d)on 04-01-2024 Neutrophils/100 WBC (Bld) Automated neutrophil % 43.0-75.0 [facility] No Panel InformationOrdered By: Ana Lilia Moreno on 04-01-2024 MRSA Screening Culture [facility] No Panel Informationon 04-01 Eosinophils # (Auto) 0.1 10 3/uL 0.0-0.7 [facility] Immature Granulocyte # (Auto) 0.00 10 3/uL 0.00-0.03 [facility] Platelet mean volume Auto (B ld) [Entitic vol]on 04-01-2024 Platelet mean volume (Bld) [Entitic vol] Platelet mean volume [Entitic volume] in Blood by Automated count Low 9.5-13.5 [facility] Platelets Auto (Bld) [#/Vol] on 04-01-2024 Platelets (Bld) [#/Vol] Platelets [#/volume] in Blood by Automated count 150-450 [facility] Prothrombin time (PT)on PT Coag (PPP) [Time] Prothrombin time (PT) 9.0-11.6 [facility] RBC Auto (Bld) [#/Vol]on RBC (Bld) [#/Vol] Erythrocytes [#/volume] in Blood by Automated count 4.20-5.40 [facility] Serum or plasma anion gap de terminationon 04-01-2024 Anion gap [Moles/Vol] Serum or plasma anion gap determination [facility] Basophils Auto (Bld) [#/Vol] on 01-20-2024 Basophils (Bld) [#/Vol] 0.1 10 3/uL 0.0-0.1 [facility] Basophils (Bld) [#/Vol] Automated basophil count 0.0-0.1 [facility] Basophils/100 WBC Auto (Bld) on 01-20-2024 Basophils/100 WBC (Bld) 0.7 % 0.2-2.0 [facility] Basophils/100 WBC (Bld) Automated basophil % 0.2-2.0 [facility] Eosinophils/100 WBC Auto (Bl d)on 01-20-2024 Eosinophils/100 WBC (Bld) 2.7 % 0.9-7.0 [facility] Eosinophils/100 WBC (Bld) Automated eosinophil % 0.9-7.0 [facility] Erythrocyte distribution wid th Auto (RBC) [Ratio]on 01-20-2024 Erythrocyte distribution width (RBC) [Ratio] 16.8 % High 11.0-15.0 [facility] Erythrocyte distribution width (RBC) [Ratio] Erythrocyte distribution width [Ratio] by Automated count High 11.0-15.0 [facility] Estimated glomerular filtrat ion rate (GFR) non- Americanon 01-20-2024 GFR/1.73 sq M.predicted among non-blacks MDRD (S/P/Bld) [Vol rate/Area] mL/min/{1.73_m2} >=60 [facility] GFR/1.73 sq M.predicted among non-blacks MDRD (S/P/Bld) [Vol rate/Area] Estimated glomerular filtration rate (GFR) non- >=60 [facility] Globulin Calc (S) [Mass/Vol] on 01-20-2024 Globulin (S) [Mass/Vol] 4.8 g/dL [facility] Globulin (S) [Mass/Vol] Serum globulin measurement by calculation (mass/volume) [facility] Hematocrit Auto (Bld) [Volum e fraction]on 01-20-2024 Hematocrit (Bld) [Volume fraction] 34.3 % Low 36.0-48.0 [facility] Hematocrit (Bld) [Volume fraction] Hematocrit [Volume Fraction] of Blood by Automated count Low 36.0-48.0 [facility] Hemoglobin [Mass/volume] in Bloodon 01-20-2024 Hemoglobin (Bld) [Mass/Vol] 10.9 g/dL Low 12.0-16.0 [facility] Hemoglobin (Bld) [Mass/Vol] Hemoglobin [Mass/volume] in Blood Low 12.0-16.0 [facility] Laboratory - Chemistry and C hemistry - challengeon 01-20-2024 Albumin [Mass/Vol] 2.9 g/dL Low 3.4-5.0 [facility] ALP [Catalytic activity/Vol] 205 U/L High 46-116 [facility] ALT [Catalytic activity/Vol] 24 U/L 14-59 [facility] AST [Catalytic activity/Vol] 48 U/L High 15-37 [facility] Bilirubin [Mass/Vol] 0.3 mg/dL 0.2-1.0 [facility] Calcium [Mass/Vol] 9.3 mg/dL 8.5-10.1 [facility] Chloride [Moles/Vol] 97 mmol/L Low 98-107 [facility] CO2 [Moles/Vol] 23.4 mmol/L 21.0-32.0 [facility] Creatinine [Mass/Vol] 0.83 mg/dL 0.55-1.02 [facility] GFR/1.73 sq M.predicted MDRD (S/P/Bld) [Vol rate/Area] mL/min/{1.73_m2} >=60 [facility] Glucose [Mass/Vol] 92 mg/dL 74-106 [facility] [facility] Magnesium [Mass/Vol] 1.9 mg/dL 1.8-2.4 [facility] Potassium [Moles/Vol] 3.7 mmol/L 3.5-5.1 [facility] Protein [Mass/Vol] 7.7 g/dL 6.4-8.2 [facility] Sodium [Moles/Vol] 135 mmol/L Low 136-145 [facility] Urea nitrogen [Mass/Vol] 4.0 mg/dL Low 7.0-18.0 [facility] Urea nitrogen/Creatinine [Mass ratio] 4.8 mg/mg [facility] Laboratory - Hematology and Cell countson 01-20-2024 Immature granulocytes/100 WBC (Bld) 0.5 % 0.0-0.5 [facility] Leukocytes [#/volume] correc patty for nucleated erythrocytes in Blood by Automated counon 01-20-2024 WBC corrected for nucl RBC Auto (Bld) [#/Vol] 8.6 10 3/uL 4.0-11.0 [facility] WBC corrected for nucl RBC Auto (Bld) [#/Vol] Leukocytes [#/volume] corrected for nucleated erythrocytes in Blood by Automated coun 4.0-11.0 [facility] Lymphocytes Auto (Bld) [#/Vo l]on 01-20-2024 Lymphocytes (Bld) [#/Vol] 2.4 10 3/uL 1.2-3.8 [facility] Lymphocytes (Bld) [#/Vol] Lymphocytes [#/volume] in Blood by Automated count 1.2-3.8 [facility] Lymphocytes/100 WBC Auto (Bl d)on 01-20-2024 Lymphocytes/100 WBC (Bld) 28.2 % 20.5-60.0 [facility] Lymphocytes/100 WBC (Bld) Lymphocytes/100 leukocytes in Blood by Automated count 20.5-60.0 [facility] MCH Auto (RBC) [Entitic mass ]on 01-20-2024 MCH (RBC) [Entitic mass] 29.4 pg 26.7-34.0 [facility] MCH (RBC) [Entitic mass] MCH [Entitic mass] by Automated count 26.7-34.0 [facility] MCHC Auto (RBC) [Mass/Vol]on 01-20-2024 MCHC (RBC) [Mass/Vol] 31.8 g/dL 29.9-35.2 [facility] MCHC (RBC) [Mass/Vol] MCHC [Mass/volume] by Automated count 29.9-35.2 [facility] MCV Auto (RBC) [Entitic vol] on 01-20-2024 MCV (RBC) [Entitic vol] 92.5 fL 81.0-99.0 [facility] MCV (RBC) [Entitic vol] MCV [Entitic volume] by Automated count 81.0-99.0 [facility] Monocytes Auto (Bld) [#/Vol] on 01-20-2024 Monocytes (Bld) [#/Vol] 0.7 10 3/uL 0.3-0.8 [facility] Monocytes (Bld) [#/Vol] Automated blood monocyte count 0.3-0.8 [facility] Monocytes/100 WBC Auto (Bld) on 01-20-2024 Monocytes/100 WBC (Bld) 7.8 % 1.7-12.0 [facility] Monocytes/100 WBC (Bld) Automated monocyte % 1.7-12.0 [facility] Neutrophils Auto (Bld) [#/Vo l]on 01-20-2024 Neutrophils (Bld) [#/Vol] 5.2 10 3/uL 1.4-6.5 [facility] Neutrophils (Bld) [#/Vol] Neutrophils [#/volume] in Blood by Automated count 1.4-6.5 [facility] Neutrophils/100 WBC Auto (Bl d)on 01-20-2024 Neutrophils/100 WBC (Bld) 60.1 % 43.0-75.0 [facility] Neutrophils/100 WBC (Bld) Automated neutrophil % 43.0-75.0 [facility] No Panel Informationon 01-19 Eosinophils # (Auto) 0.2 10 3/uL 0.0-0.7 [facility] Immature Granulocyte # (Auto) 0.04 10 3/uL High 0.00-0.03 [facility] Platelet mean volume Auto (B ld) [Entitic vol]on 01-20-2024 Platelet mean volume (Bld) [Entitic vol] 10.0 fL 9.5-13.5 [facility] Platelet mean volume (Bld) [Entitic vol] Platelet mean volume [Entitic volume] in Blood by Automated count 9.5-13. [facility] Platelets Auto (Bld) [#/Vol] on 01-20-2024 Platelets (Bld) [#/Vol] 456 10 3/uL High 150-450 [facility] Platelets (Bld) [#/Vol] Platelets [#/volume] in Blood by Automated count High 150-450 [facility] RBC Auto (Bld) [#/Vol]on RBC (Bld) [#/Vol] 3.71 10 6/uL Low 4.20-5.40 [facility] RBC (Bld) [#/Vol] Erythrocytes [#/volume] in Blood by Automated count Low 4.20-5.40 [facility] Serum or plasma albumin/glob ulin mass ratioon 01-20-2024 Albumin/Globulin [Mass ratio] 0.6 {ratio} [facility] Albumin/Globulin [Mass ratio] Serum or plasma albumin/globulin mass ratio [facility] Serum or plasma anion gap de terminationon 01-20-2024 Anion gap [Moles/Vol] 18.3 mmol/L [facility] Anion gap [Moles/Vol] Serum or plasma anion gap determination [facility] Basophils Auto (Bld) [#/Vol] on 01-12-2024 Basophils (Bld) [#/Vol] 0.1 10 3/uL 0.0-0.1 [facility] Basophils (Bld) [#/Vol] Automated basophil count 0.0-0.1 [facility] Basophils/100 WBC Auto (Bld) on 01-12-2024 Basophils/100 WBC (Bld) 0.7 % 0.2-2.0 [facility] Basophils/100 WBC (Bld) Automated basophil % 0.2-2.0 [facility] Eosinophils/100 WBC Auto (Bl d)on 01-12-2024 Eosinophils/100 WBC (Bld) 2.3 % 0.9-7.0 [facility] Eosinophils/100 WBC (Bld) Automated eosinophil % 0.9-7.0 [facility] Erythrocyte distribution wid th Auto (RBC) [Ratio]on 01-12-2024 Erythrocyte distribution width (RBC) [Ratio] 18.2 % High 11.0-15.0 [facility] Erythrocyte distribution width (RBC) [Ratio] Erythrocyte distribution width [Ratio] by Automated count High 11.0-15.0 [facility] Estimated glomerular filtrat ion rate (GFR) non- Americanon 01-12-2024 GFR/1.73 sq M.predicted among non-blacks MDRD (S/P/Bld) [Vol rate/Area] mL/min/{1.73_m2} >=60 [facility] GFR/1.73 sq M.predicted among non-blacks MDRD (S/P/Bld) [Vol rate/Area] Estimated glomerular filtration rate (GFR) non- >=60 [facility] Globulin Calc (S) [Mass/Vol] on 01-12-2024 Globulin (S) [Mass/Vol] 3.2 g/dL [facility] Globulin (S) [Mass/Vol] Serum globulin measurement by calculation (mass/volume) [facility] Hematocrit Auto (Bld) [Volum e fraction]on 01-12-2024 Hematocrit (Bld) [Volume fraction] 29.7 % Low 36.0-48.0 [facility] Hematocrit (Bld) [Volume fraction] Hematocrit [Volume Fraction] of Blood by Automated count Low 36.0-48.0 [facility] Hemoglobin [Mass/volume] in Bloodon 01-12-2024 Hemoglobin (Bld) [Mass/Vol] 9.5 g/dL Low 12.0-16.0 [facility] Hemoglobin (Bld) [Mass/Vol] Hemoglobin [Mass/volume] in Blood Low 12.0-16.0 [facility] Laboratory - Chemistry and C hemistry - challengeon 01-12-2024 Albumin [Mass/Vol] 2.3 g/dL Low 3.4-5.0 [facility] ALP [Catalytic activity/Vol] 142 U/L High 46-116 [facility] ALT [Catalytic activity/Vol] 19 U/L 14-59 [facility] AST [Catalytic activity/Vol] 30 U/L 15-37 [facility] Bilirubin [Mass/Vol] 0.4 mg/dL 0.2-1.0 [facility] Calcium [Mass/Vol] 9.0 mg/dL 8.5-10.1 [facility] Chloride [Moles/Vol] 99 mmol/L 98-107 [facility] CO2 [Moles/Vol] 29.5 mmol/L 21.0-32.0 [facility] Creatinine [Mass/Vol] 0.56 mg/dL 0.55-1.02 [facility] GFR/1.73 sq M.predicted MDRD (S/P/Bld) [Vol rate/Area] mL/min/{1.73_m2} >=60 [facility] Glucose [Mass/Vol] 95 mg/dL 74-106 [facility] Potassium [Moles/Vol] 3.5 mmol/L 3.5-5.1 [facility] Protein [Mass/Vol] 5.5 g/dL Low 6.4-8.2 [facility] Sodium [Moles/Vol] 134 mmol/L Low 136-145 [facility] Urea nitrogen [Mass/Vol] 10.0 mg/dL 7.0-18.0 [facility] Urea nitrogen/Creatinine [Mass ratio] 17.9 mg/mg [facility] Laboratory - Hematology and Cell countson 01-12-2024 Immature granulocytes/100 WBC (Bld) 0.5 % 0.0-0.5 [facility] Leukocytes [#/volume] correc patty for nucleated erythrocytes in Blood by Automated counon 01-12-2024 WBC corrected for nucl RBC Auto (Bld) [#/Vol] 8.6 10 3/uL 4.0-11.0 [facility] WBC corrected for nucl RBC Auto (Bld) [#/Vol] Leukocytes [#/volume] corrected for nucleated erythrocytes in Blood by Automated coun 4.0-11.0 [facility] Lymphocytes Auto (Bld) [#/Vo l]on 01-12-2024 Lymphocytes (Bld) [#/Vol] 1.8 10 3/uL 1.2-3.8 [facility] Lymphocytes (Bld) [#/Vol] Lymphocytes [#/volume] in Blood by Automated count 1.2-3.8 [facility] Lymphocytes/100 WBC Auto (Bl d)on 01-12-2024 Lymphocytes/100 WBC (Bld) 20.7 % 20.5-60.0 [facility] Lymphocytes/100 WBC (Bld) Lymphocytes/100 leukocytes in Blood by Automated count 20.5-60.0 [facility] MCH Auto (RBC) [Entitic mass ]on 01-12-2024 MCH (RBC) [Entitic mass] 30.2 pg 26.7-34.0 [facility] MCH (RBC) [Entitic mass] MCH [Entitic mass] by Automated count 26.7-34.0 [facility] MCHC Auto (RBC) [Mass/Vol]on 01-12-2024 MCHC (RBC) [Mass/Vol] 32.0 g/dL 29.9-35.2 [facility] MCHC (RBC) [Mass/Vol] MCHC [Mass/volume] by Automated count 29.9-35.2 [facility] MCV Auto (RBC) [Entitic vol] on 01-12-2024 MCV (RBC) [Entitic vol] 94.3 fL 81.0-99.0 [facility] MCV (RBC) [Entitic vol] MCV [Entitic volume] by Automated count 81.0-99.0 [facility] Monocytes Auto (Bld) [#/Vol] on 01-12-2024 Monocytes (Bld) [#/Vol] 1.0 10 3/uL High 0.3-0.8 [facility] Monocytes (Bld) [#/Vol] Automated blood monocyte count High 0.3-0.8 [facility] Monocytes/100 WBC Auto (Bld) on 01-12-2024 Monocytes/100 WBC (Bld) 11.3 % 1.7-12.0 [facility] Monocytes/100 WBC (Bld) Automated monocyte % 1.7-12.0 [facility] Neutrophils Auto (Bld) [#/Vo l]on 01-12-2024 Neutrophils (Bld) [#/Vol] 5.6 10 3/uL 1.4-6.5 [facility] Neutrophils (Bld) [#/Vol] Neutrophils [#/volume] in Blood by Automated count 1.4-6.5 [facility] Neutrophils/100 WBC Auto (Bl d)on 01-12-2024 Neutrophils/100 WBC (Bld) 64.5 % 43.0-75.0 [facility] Neutrophils/100 WBC (Bld) Automated neutrophil % 43.0-75.0 [facility] Nicotineon 01-12-2024 Cotinine <5 Normal [facility] Comment on above: Performed By: #### P TT, PT #### [facility] [address] [place] [address] [employer] Adjuster: Tato Ibarra MD Nicotine <5 Normal [facility] Comment on above: Result Comment: (NOT E) [...] developed and its performance characteristics determined by [facility]. It has not been cleared or approved by the [place] Food and Drug Administration. This test was performed in a CLIA certified laboratory and is intended for clinical purposes. Performed By: [facility] [address] [place] [id number] [employer] Covering: José Jackson MD, PhD CLIA Number: [id number] Performed By: #### P TT, PT #### [facility] [address] [place] [address] [employer] Adjuster: Tato Ibarra MD No Panel Informationon 01-11 Eosinophils # (Auto) 0.2 10 3/uL 0.0-0.7 [facility] Immature Granulocyte # (Auto) 0.04 10 3/uL High 0.00-0.03 [facility] Platelet mean volume Auto (B ld) [Entitic vol]on 01-12-2024 Platelet mean volume (Bld) [Entitic vol] 9.9 fL 9.5-13.5 [facility] Platelet mean volume (Bld) [Entitic vol] Platelet mean volume [Entitic volume] in Blood by Automated count 9.5-13.5 [facility] Platelets Auto (Bld) [#/Vol] on 01-12-2024 Platelets (Bld) [#/Vol] 408 10 3/uL 150-450 [facility] Platelets (Bld) [#/Vol] Platelets [#/volume] in Blood by Automated count 150-450 [facility] RBC Auto (Bld) [#/Vol]on RBC (Bld) [#/Vol] 3.15 10 6/uL Low 4.20-5.40 [facility] RBC (Bld) [#/Vol] Erythrocytes [#/volume] in Blood by Automated count Low 4.20-5.40 [facility] Serum or plasma albumin/glob ulin mass ratioon 01-12-2024 Albumin/Globulin [Mass ratio] 0.7 {ratio} [facility] Albumin/Globulin [Mass ratio] Serum or plasma albumin/globulin mass ratio [facility] Serum or plasma anion gap de terminationon 01-12-2024 Anion gap [Moles/Vol] 9.0 mmol/L [facility] Anion gap [Moles/Vol] Serum or plasma anion gap determination [facility] Hgb/Hcton 01-11-2024 Hematocrit (Bld) [Volume fraction] 27.8 % Low 36.3-47.1 [facility] Comment on above: Performed By: #### O SMO, LD, MG, JESUS, TSHX, LIVP, B12FOL, LACTIC, FT4, BMP #### [facility] [employer] [address] [place] [id number] [employer] Adjuster: Tato Ibarra MD Hemoglobin (Bld) [Mass/Vol] 8.7 g/dL Low 11.9-15.1 [facility] Comment on above: Performed By: #### O SMO, LD, MG, JESUS, TSHX, LIVP, B12FOL, LACTIC, FT4, BMP #### [address] [address] [employer] Adjuster: Tato Ibarra MD Basic Metab w/rfx MGon 01-09 Anion gap [Moles/Vol] 9 mmol/L Normal 9-16 [facility] Comment on above: Performed By: #### P TT, PT #### [address] [address] [employer] Adjuster: Tato Ibarra MD Calcium [Mass/Vol] 8.0 mg/dL Low 8.6-10.4 [facility] Comment on above: Performed By: #### P TT, PT #### [address] [address] [employer] Adjuster: Tato Ibarra MD Chloride [Moles/Vol] 101 mmol/L Normal 98-107 [facility] Comment on above: Performed By: #### P TT, PT #### [address] [address] [employer] Adjuster: Tato Ibarra MD CO2 [Moles/Vol] 27 mmol/L Normal 20-31 [facility] Comment on above: Performed By: #### P TT, PT #### [address] [address] [employer] Adjuster: Tato Ibarra MD Creatinine [Mass/Vol] 0.4 mg/dL Low 0.50-0.90 [facility] Comment on above: Performed By: #### P TT, PT #### [address] [address] [employer] Adjuster: Tato Ibarra MD GFR/1.73 sq M.predicted among non-blacks MDRD (S/P/Bld) [Vol rate/Area] mL/min/{1.73_m2} Normal >60 [facility] Comment on above: Result Comment: These results [...] Performed By: #### P TT, PT #### [facility] [employer] [address] [place] [address] [employer] Adjuster: Tato Ibarra MD Glucose [Mass/Vol] 87 mg/dL Normal 74-99 [facility] Comment on above: Performed By: #### P TT, PT #### [facility] [employer] [address] [place] [address] [employer] Adjuster: Tato Ibarra MD Potassium [Moles/Vol] 3.2 mmol/L Low 3.7-5.3 [facility] Comment on above: Result Comment: SPEC IMEN SLIGHTLY HEMOLYZED, RESULTS MAY BE ADVERSELY AFFECTED. Performed By: #### P TT, PT #### [address] [address] [employer] Adjuster: Tato Ibarra MD Sodium [Moles/Vol] 137 mmol/L Normal 136-145 [facility] Comment on above: Performed By: #### P TT, PT #### [facility] [address] [place] [address] [employer] Adjuster: Tato Ibarra MD Urea nitrogen [Mass/Vol] 4 mg/dL Low 6-20 [facility] Comment on above: Performed By: #### P TT, PT #### [facility] [address] [place] [address] [employer] Adjuster: Tato Ibarra MD CBC with Diffon 01-10-2024 Platelet, Fluoresc. 190 k/uL Normal 138-453 [facility] Comment on above: Performed By: #### P TT, PT #### [facility] [address] [place] [address] [employer] Adjuster: Tato Ibarra MD PLT, Immature Fract. 4.6 % Normal 1.1-10.3 [facility] Comment on above: Performed By: #### P TT, PT #### [address] [address] [employer] Adjuster: Tato Ibarra MD Abs. Basophil 0.03 k/uL Normal 0.00-0.20 [facility] Comment on above: Performed By: #### P TT, PT #### [place] [address] [employer] Adjuster: Tato Ibarra MD Abs.Imm.Granulocyte 0.04 k/uL Normal 0.00-0.30 [facility] Comment on above: Performed By: #### P TT, PT #### [place] [address] [employer] Adjuster: Tato Ibarra MD Abs.Neutrophil (Seg) 3.17 k/uL Normal 1.50-8.10 [facility] Comment on above: Performed By: #### P TT, PT #### [address] [address] [employer] Adjuster: Tato Ibarra MD Basophils/100 WBC (Bld) 1 % Normal 0-2 [facility] Comment on above: Performed By: #### P TT, PT #### [place] [address] [employer] Adjuster: Tato Ibarra MD Eosinophils (Bld) [#/Vol] 0.12 10*3/uL Normal 0.00-0.44 [facility] Comment on above: Performed By: #### P TT, PT #### [place] [address] [employer] Adjuster: Tato Ibarra MD Eosinophils/100 WBC (Bld) 2 % Normal 1-4 [facility] Comment on above: Performed By: #### P TT, PT #### [address] [address] [employer] Adjuster: Tato Ibarra MD Erythrocyte distribution width (RBC) [Ratio] 18.7 % High 11.8-14.4 [facility] Comment on above: Performed By: #### P TT, PT #### [address] [address] [employer] Adjuster: Tato Ibarra MD Hematocrit (Bld) [Volume fraction] 27.1 % Low 36.3-47.1 [facility] Comment on above: Performed By: #### P TT, PT #### [address] [address] [employer] Adjuster: Tato Ibarra MD Hemoglobin (Bld) [Mass/Vol] 8.9 g/dL Low 11.9-15.1 [facility] Comment on above: Performed By: #### P TT, PT #### [address] [address] [employer] Adjuster: Tato Ibarra MD Immature granulocytes/100 WBC (Bld) 1 % High 0 [facility] Comment on above: Performed By: #### P TT, PT #### [address] [address] [employer] Adjuster: Tato Ibarra MD Lymphocytes (Bld) [#/Vol] 1.36 10*3/uL Normal 1.10-3.70 [facility] Comment on above: Performed By: #### P TT, PT #### [address] [address] [employer] Adjuster: Tato Ibarra MD Lymphocytes/100 WBC (Bld) 24 % Normal 24-43 [facility] Comment on above: Performed By: #### P TT, PT #### [address] [address] [employer] Adjuster: Tato Ibarra MD MCH (RBC) [Entitic mass] 29.8 pg Normal 25.2-33.5 [facility] Comment on above: Performed By: #### P TT, PT #### [address] [address] [employer] Adjuster: Tato Ibarra MD MCHC (RBC) [Mass/Vol] 32.8 g/dL Normal 28.4-34.8 [facility] Comment on above: Performed By: #### P TT, PT #### [address] [address] [employer] Adjuster: Tato Ibarra MD MCV (RBC) [Entitic vol] 90.6 fL Normal 82.6-102.9 [facility] Comment on above: Performed By: #### P TT, PT #### [address] [address] [employer] Adjuster: Tato Ibarra MD Monocytes (Bld) [#/Vol] 0.85 10*3/uL Normal 0.10-1.20 [facility] Comment on above: Performed By: #### P TT, PT #### [address] [address] [employer] Adjuster: Tato Ibarra MD Monocytes/100 WBC (Bld) 15 % High 3-12 [facility] Comment on above: Performed By: #### P TT, PT #### [address] [address] [employer] Adjuster: Tato Ibarra MD Neutrophil (Seg) 57 % Normal 36-65 [facility] Comment on above: Performed By: #### P TT, PT #### [address] [address] [employer] Adjuster: Tato Ibarra MD NRBC Automated 0.0 per 100 WBC Normal 0.0 [facility] Comment on above: Performed By: #### P TT, PT #### [address] [address] [employer] Adjuster: Tato Ibarra MD Platelet Count See Reflexed IPF Result Normal 138-453 [facility] Comment on above: Performed By: #### P TT, PT #### [address] [address] [employer] Adjuster: Tato Ibarra MD RBC (Bld) [#/Vol] 2.99 10*6/uL Low 3.95-5.11 [facility] Comment on above: Performed By: #### P TT, PT #### [address] [address] [employer] Adjuster: Tato Ibarra MD RBC morphology finding Nom (Bld) ANISOCYTOSIS PRESENT Normal [facility] Comment on above: Performed By: #### P TT, PT #### [address] [address] [employer] Adjuster: Tato Ibarra MD WBC (Bld) [#/Vol] 5.6 10*3/uL Normal 3.5-11.3 [facility] Comment on above: Performed By: #### P TT, PT #### [address] [address] [employer] Adjuster: Tato Ibarra MD Calcium, Ionicon 01-10-2024 Calcium [Moles/Vol] 1.18 mmol/L Normal 1.13-1.33 [facility] Comment on above: Performed By: #### P TT, PT #### [address] [address] [employer] Adjuster: Tato Ibarra MD Hgb/Hcton 01-10-2024 Hematocrit (Bld) [Volume fraction] 25.4 % Low 36.3-47.1 [facility] Comment on above: Performed By: #### P TT, PT #### [address] [address] [employer] Adjuster: Tato Ibarra MD Hemoglobin (Bld) [Mass/Vol] 8.1 g/dL Low 11.9-15.1 [facility] Comment on above: Performed By: #### P TT, PT #### [address] [address] [employer] Adjuster: Tato Ibarra MD Magnesiumon 01-10-2024 Magnesium [Mass/Vol] 1.8 mg/dL Normal 1.6-2.6 [facility] Comment on above: Performed By: #### P TT, PT #### [address] [address] [employer] Adjuster: Tato Ibarra MD Type + Screenon 01-10-2024 Type + Screen Sample Expiration 01/09/2024,2359 Arm Band Number [id number] ABO/Rh(D) O NEGATIVE Antibody Screen NEGATIVE Unit Number [id number] Blood Component Type Leukocyte Reduced Red Cell Unit Division 00 Status of Unit TRANSFUSED Transfusion Status OK TO TRANSFUSE Crossmatch Result COMPATIBLE Unit Number [id number] Blood Component Type Leukocyte Reduced Red Cell Unit Division 00 Status of Unit REL FROM ALLOC Transfusion Status DO NOT ISSUE FOR TRANSFUSION Crossmatch Result NOT TESTED Normal [facility] Comment on above: Performed By: #### O SMO, LD, MG, JESUS, TSHX, LIVP, B12FOL, LACTIC, FT4, BMP #### [address] [address] [employer] Adjuster: Tato Ibarra MD Basic Metab w/rfx MGon 01-08 Anion gap [Moles/Vol] 8 mmol/L Low - [facility] Comment on above: Performed By: #### O SMO, LD, MG, JESUS, TSHX, LIVP, B12FOL, LACTIC, FT4, BMP #### [address] [id number] [employer] Adjuster: Tato Ibarra MD Calcium [Mass/Vol] 8.1 mg/dL Low 8.6-10.4 [facility] Comment on above: Performed By: #### O SMO, LD, MG, JESUS, TSHX, LIVP, B12FOL, LACTIC, FT4, BMP #### [facility] [address] [place] [id number] [employer] Adjuster: Tato Ibarra MD Chloride [Moles/Vol] 103 mmol/L Normal 98-107 [facility] Comment on above: Performed By: #### O SMO, LD, MG, JESUS, TSHX, LIVP, B12FOL, LACTIC, FT4, BMP #### [address] [phone] [employer] Adjuster: Tato Ibarra MD CO2 [Moles/Vol] 27 mmol/L Normal 20-31 [facility] Comment on above: Performed By: #### O SMO, LD, MG, JESUS, TSHX, LIVP, B12FOL, LACTIC, FT4, BMP #### [address] [id number] [employer] Adjuster: Tato Ibarra MD Creatinine [Mass/Vol] 0.3 mg/dL Low 0.50-0.90 [facility] Comment on above: Performed By: #### O SMO, LD, MG, JESUS, TSHX, LIVP, B12FOL, LACTIC, FT4, BMP #### [address] [id number] [employer] Adjuster: Tato Ibarra MD GFR/1.73 sq M.predicted among non-blacks MDRD (S/P/Bld) [Vol rate/Area] mL/min/{1.73_m2} Normal >60 [facility] Comment on above: Result Comment: These results [...] TSHX, LIVP, B12FOL, LACTIC, FT4, BMP #### [address] [address] [employer] Adjuster: Tato Ibarra MD Glucose [Mass/Vol] 103 mg/dL High 74-99 [facility] Comment on above: Performed By: #### O SMO, LD, MG, JESUS, TSHX, LIVP, B12FOL, LACTIC, FT4, BMP #### [address] [address] [employer] Adjuster: Tato Ibarra MD Potassium [Moles/Vol] 3.1 mmol/L Low 3.7-5.3 [facility] Comment on above: Performed By: #### O SMO, LD, MG, JESUS, TSHX, LIVP, B12FOL, LACTIC, FT4, BMP #### [address] [address] [employer] Adjuster: Tato Ibarra MD Sodium [Moles/Vol] 138 mmol/L Normal 136-145 [facility] Comment on above: Performed By: #### O SMO, LD, MG, JESUS, TSHX, LIVP, B12FOL, LACTIC, FT4, BMP #### [facility] [employer] [address] [place] [phone] Envelope Folding Machine Adjuster: Tato Ibarra MD Urea nitrogen [Mass/Vol] 4 mg/dL Low 6-20 [facility] Comment on above: Performed By: #### O SMO, LD, MG, JESUS, TSHX, LIVP, B12FOL, LACTIC, FT4, BMP #### [facility] [employer] [address] [place] [phone] Envelope Folding Machine Adjuster: Tato Ibarra MD CBC with Diffon 01-09-2024 Abs. Basophil 0.03 k/uL Normal 0.00-0.20 [facility] Comment on above: Performed By: #### O SMO, LD, MG, JESUS, TSHX, LIVP, B12FOL, LACTIC, FT4, BMP #### [facility] [employer] [address] [place] [address] Envelope Folding Machine Adjuster: Tato Ibarra MD Abs.Imm.Granulocyte <0.03 Normal 0.00-0.30 [facility] Comment on above: Performed By: #### O SMO, LD, MG, JESUS, TSHX, LIVP, B12FOL, LACTIC, FT4, BMP #### [place] [address] [employer] Machine Adjuster: Tato Ibarra MD Abs.Neutrophil (Seg) 4.44 k/uL Normal 1.50-8.10 [facility] Comment on above: Performed By: #### O SMO, LD, MG, JESUS, TSHX, LIVP, B12FOL, LACTIC, FT4, BMP #### [facility] [employer] [address] [place] [address] Envelope F[employer] Machine Adjuster: Tato Ibarra MD Basophils/100 WBC (Bld) 1 % Normal 0-2 [facility] Comment on above: Performed By: #### O SMO, LD, MG, JESUS, TSHX, LIVP, B12FOL, LACTIC, FT4, BMP #### [address] [address] En[employer] Adjuster: Tato Ibarra MD Eosinophils (Bld) [#/Vol] 0.10 10*3/uL Normal 0.00-0.44 [facility] Comment on above: Performed By: #### O SMO, LD, MG, JESUS, TSHX, LIVP, B12FOL, LACTIC, FT4, BMP #### [address] [id number] [employer] Adjuster: Tato Ibarra MD Eosinophils/100 WBC (Bld) 2 % Normal 1-4 [facility] Comment on above: Performed By: #### O SMO, LD, MG, JESUS, TSHX, LIVP, B12FOL, LACTIC, FT4, BMP #### [address] [address] En[employer] Machine Adjuster: Tato Ibarra MD Erythrocyte distribution width (RBC) [Ratio] 19.9 % High 11.8-14.4 [facility] Comment on above: Performed By: #### O SMO, LD, MG, JESUS, TSHX, LIVP, B12FOL, LACTIC, FT4, BMP #### [place] [address] [employer] Machine Adjuster: Tato Ibarra MD Hematocrit (Bld) [Volume fraction] 24.7 % Low 36.3-47.1 [facility] Comment on above: Performed By: #### O SMO, LD, MG, JESUS, TSHX, LIVP, B12FOL, LACTIC, FT4, BMP #### [place] [address] [employer] Machine Adjuster: Tato Ibarra MD Hemoglobin (Bld) [Mass/Vol] 7.7 g/dL Low 11.9-15.1 [facility] Comment on above: Performed By: #### O SMO, LD, MG, JESUS, TSHX, LIVP, B12FOL, LACTIC, FT4, BMP #### [place] [address] [employer] Machine Adjuster: Tato Ibarra MD Immature granulocytes/100 WBC (Bld) 0 % Normal 0 [facility] Comment on above: Performed By: #### O SMO, LD, MG, JESUS, TSHX, LIVP, B12FOL, LACTIC, FT4, BMP #### [address] [id number] [employer] Machine Adjuster: Tato Ibarra MD Lymphocytes (Bld) [#/Vol] 0.91 10*3/uL Low 1.10-3.70 [facility] Comment on above: Performed By: #### O SMO, LD, MG, JESUS, TSHX, LIVP, B12FOL, LACTIC, FT4, BMP #### [place] [address] [employer] Machine Adjuster: Tato Ibarra MD Lymphocytes/100 WBC (Bld) 15 % Low 24-43 [facility] Comment on above: Performed By: #### O SMO, LD, MG, JESUS, TSHX, LIVP, B12FOL, LACTIC, FT4, BMP #### [place] [address] [employer] Machine Adjuster: Tato Ibarra MD MCH (RBC) [Entitic mass] 29.6 pg Normal 25.2-33.5 [facility] Comment on above: Performed By: #### O SMO, LD, MG, JESUS, TSHX, LIVP, B12FOL, LACTIC, FT4, BMP #### [place] [address] [employer] Machine Adjuster: Tato Ibarra MD MCHC (RBC) [Mass/Vol] 31.2 g/dL Normal 28.4-34.8 [facility] Comment on above: Performed By: #### O SMO, LD, MG, JESUS, TSHX, LIVP, B12FOL, LACTIC, FT4, BMP #### [place] [address] [employer] Machine Adjuster: Tato Ibarra MD MCV (RBC) [Entitic vol] 95.0 fL Normal 82.6-102.9 [facility] Comment on above: Performed By: #### O SMO, LD, MG, JESUS, TSHX, LIVP, B12FOL, LACTIC, FT4, BMP #### [address] [address] En[employer] Machine Adjuster: Tato Ibarra MD Monocytes (Bld) [#/Vol] 0.60 10*3/uL Normal 0.10-1.20 [facility] Comment on above: Performed By: #### O SMO, LD, MG, JESUS, TSHX, LIVP, B12FOL, LACTIC, FT4, BMP #### [facility] [address] [place] [address] Envelope Folding Machine Adjuster: Tato Ibarra MD Monocytes/100 WBC (Bld) 10 % Normal 3-12 [facility] Comment on above: Performed By: #### O SMO, LD, MG, JESUS, TSHX, LIVP, B12FOL, LACTIC, FT4, BMP #### [address] [address] En[employer] Machine Adjuster: Tato Ibarra MD Neutrophil (Seg) 73 % High 36-65 [facility] Comment on above: Performed By: #### O SMO, LD, MG, JESUS, TSHX, LIVP, B12FOL, LACTIC, FT4, BMP #### [facility] [employer] [address] [place] [address] Envelope F[employer] Machine Adjuster: Tato Ibarra MD NRBC Automated 0.0 per 100 WBC Normal 0.0 [facility] Comment on above: Performed By: #### O SMO, LD, MG, JESUS, TSHX, LIVP, B12FOL, LACTIC, FT4, BMP #### [facility] [employer] [address] [place] [address] 8[address]86 Envelope F[employer] Machine Adjuster: Tato Ibarra MD Platelet mean volume (Bld) [Entitic vol] 10.4 fL Normal 8.1-13.5 [facility] Comment on above: Performed By: #### O SMO, LD, MG, JESUS, TSHX, LIVP, B12FOL, LACTIC, FT4, BMP #### [address] [address] En[employer] Adjuster: Tato Ibarra MD Platelets (Bld) [#/Vol] 266 10*3/uL Normal 138-453 [facility] Comment on above: Performed By: #### O SMO, LD, MG, JESUS, TSHX, LIVP, B12FOL, LACTIC, FT4, BMP #### [address] [address] [employer] Adjuster: Tato Ibarra MD RBC (Bld) [#/Vol] 2.60 10*6/uL Low 3.95-5.11 [facility] Comment on above: Performed By: #### O SMO, LD, MG, JESUS, TSHX, LIVP, B12FOL, LACTIC, FT4, BMP #### [address] [address] [employer] Machine Adjuster: Tato Ibarra MD RBC morphology finding Nom (Bld) ANISOCYTOSIS PRESENT Normal [facility] Comment on above: Performed By: #### O SMO, LD, MG, JESUS, TSHX, LIVP, B12FOL, LACTIC, FT4, BMP #### [address] [address] En[employer] Machine Adjuster: Tato Ibarra MD WBC (Bld) [#/Vol] 6.1 10*3/uL Normal 3.5-11.3 [facility] Comment on above: Performed By: #### O SMO, LD, MG, JESUS, TSHX, LIVP, B12FOL, LACTIC, FT4, BMP #### [address] [address] [employer] Machine Adjuster: Tato Ibarra MD Calcium, Ionicon 01-09-2024 Calcium [Moles/Vol] 1.18 mmol/L Normal 1.13-1.33 [facility] Comment on above: Performed By: #### O SMO, LD, MG, JESUS, TSHX, LIVP, B12FOL, LACTIC, FT4, BMP #### [facility] [employer] [address] [place] [address] [phone] Envelope F[employer] Machine Adjuster: Tato Ibarra MD Ferritinon 01-09-2024 Ferritin [Mass/Vol] 80 ng/mL Normal 13-150 [facility] Comment on above: Result Comment: FERRITIN Reference Ranges: Adult Males 20 - 60 years: 30 - 400 ng/mL Adult females 17 - 60 years: 13 - 150 ng/mL Adults greater than 60 years: no established reference range Pediatrics: no established reference range Performed By: #### P TT, PT #### [address] [phone] [employer] Adjuster: Tato Ibarra MD Hgb/Hcton 01-09-2024 Hematocrit (Bld) [Volume fraction] 23.7 % Low 36.3-47.1 [facility] Comment on above: Performed By: #### O SMO, LD, MG, JESUS, TSHX, LIVP, B12FOL, LACTIC, FT4, BMP #### [facility] [employer] [address] [place] [address] [phone] En[employer] Machine Adjuster: Tato Ibarra MD Hemoglobin (Bld) [Mass/Vol] 8.0 g/dL Low 11.9-15.1 [facility] Comment on above: Performed By: #### O SMO, LD, MG, JESUS, TSHX, LIVP, B12FOL, LACTIC, FT4, BMP #### [facility] [address] [place] [address] [phone] Envelope F[employer] Machine Adjuster: Tato bIarra MD Iron Binding Cap.on 01-09-20 24 % Fe Saturation 10 % Low 20-55 [facility] Comment on above: Performed By: #### O SMO, LD, MG, JESUS, TSHX, LIVP, B12FOL, LACTIC, FT4, BMP #### [employer] [address] [place] [address] [phone] Envelope Folding Machine Adjuster: Tato Ibarra MD Iron [Mass/Vol] 15 ug/dL Low 37-145 [facility] Comment on above: Performed By: #### O SMO, LD, MG, JESUS, TSHX, LIVP, B12FOL, LACTIC, FT4, BMP #### [facility] [employer] [address] [place] [address]17 Envelope F[employer] Machine Adjuster: Tato Ibarra MD Total Fe Binding Cap 156 ug/dL Low 250-450 [facility] Comment on above: Performed By: #### O SMO, LD, MG, JESUS, TSHX, LIVP, B12FOL, LACTIC, FT4, BMP #### [address] [phone] [employer] Adjuster: Tato Ibarra MD Unbound Fe Bind Cap 141 ug/dL Normal 112-347 [facility] Comment on above: Performed By: #### O SMO, LD, MG, JESUS, TSHX, LIVP, B12FOL, LACTIC, FT4, BMP #### [address] [address] [employer] Adjuster: Tato Ibarra MD Magnesiumon 01-09-2024 Magnesium [Mass/Vol] 2.0 mg/dL Normal 1.6-2.6 [facility] Comment on above: Performed By: #### O SMO, LD, MG, JESUS, TSHX, LIVP, B12FOL, LACTIC, FT4, BMP #### [address] [address] [employer] Adjuster: Tato Ibarra MD Basic Metab w/rfx MGon 01-07 Anion gap [Moles/Vol] 14 mmol/L Normal 9-16 [facility] Comment on above: Performed By: #### P TT, PT #### [address] [address] [employer] Adjuster: Tato Ibarra MD Calcium [Mass/Vol] 8.3 mg/dL Low 8.6-10.4 [facility] Comment on above: Performed By: #### P TT, PT #### [facility] [address] [place] [address] En[employer] Machine Adjuster: Tato Ibarra MD Chloride [Moles/Vol] 97 mmol/L Low 98-107 [facility] Comment on above: Performed By: #### P TT, PT #### [facility] [address] [place] [address] En[employer] Machine Adjuster: Tato Ibarra MD CO2 [Moles/Vol] 24 mmol/L Normal 20-31 [facility] Comment on above: Performed By: #### P TT, PT #### [address] [address] [employer] Adjuster: Tato Ibarra MD Creatinine [Mass/Vol] 0.3 mg/dL Low 0.50-0.90 [facility] Comment on above: Performed By: #### P TT, PT #### [address] [address] [employer] Adjuster: Tato Ibarra MD GFR/1.73 sq M.predicted among non-blacks MDRD (S/P/Bld) [Vol rate/Area] mL/min/{1.73_m2} Normal >60 [facility] Comment on above: Result Comment: These results [...] Performed By: #### P TT, PT #### [address] [address] [employer] Adjuster: Tato Ibarra MD Glucose [Mass/Vol] 104 mg/dL High 74-99 [facility] Comment on above: Performed By: #### P TT, PT #### [facility] [address] [place] [address] En[employer] Adjuster: Tato Ibarra MD Potassium [Moles/Vol] 3.0 mmol/L Low 3.7-5.3 [facility] Comment on above: Performed By: #### P TT, PT #### [facility] [employer] [address] [place] [address] Envelope [employer] Machine Adjuster: Tato Ibarra MD Sodium [Moles/Vol] 135 mmol/L Low 136-145 [facility] Comment on above: Performed By: #### P TT, PT #### [facility] [employer] [address] [place] [address] Envelope F[employer] Machine Adjuster: Tato Ibarra MD Urea nitrogen [Mass/Vol] 4 mg/dL Low 6-20 [facility] Comment on above: Performed By: #### P TT, PT #### [address] [address] [employer] Adjuster: Tato Ibarra MD CBC with Diffon 01-08-2024 Abs. Basophil 0.00 k/uL Normal 0.0-0.2 [facility] Comment on above: Performed By: #### P TT, PT #### [facility] [employer] [address] [place] [address]791 En[employer] Machine Adjuster: Tato Ibarra MD Abs.Imm.Granulocyte 0.00 k/uL Normal 0.00-0.30 [facility] Comment on above: Performed By: #### P TT, PT #### [facility] [employer] [address] [place] [address] Envelope F[employer] Machine Adjuster: Tato Ibarra MD Abs.Neutrophil (Seg) 7.78 k/uL High 1.8-7.7 [facility] Comment on above: Performed By: #### P TT, PT #### [facility] [employer] [address] [place] [address] En[employer] Machine Adjuster: Tato Ibarra MD Basophils/100 WBC (Bld) 0 % Normal 0-2 [facility] Comment on above: Performed By: #### P TT, PT #### [address] [address] [employer] Adjuster: Tato Ibarra MD Eosinophils (Bld) [#/Vol] 0.00 10*3/uL Normal 0.0-0.4 [facility] Comment on above: Performed By: #### P TT, PT #### [address] [address] [employer] Adjuster: Tato Ibarra MD Eosinophils/100 WBC (Bld) 0 % Low 1-4 [facility] Comment on above: Performed By: #### P TT, PT #### [address] [address] [employer] Adjuster: Tato Ibarra MD Immature granulocytes/100 WBC (Bld) 0 % Normal 0 [facility] Comment on above: Performed By: #### P TT, PT #### [address] [address] [employer] Adjuster: Tato Ibarra MD Lymphocytes (Bld) [#/Vol] 1.15 10*3/uL Normal 1.0-4.8 [facility] Comment on above: Performed By: #### P TT, PT #### [address] [address] [employer] Machine Adjuster: Tato Ibarra MD Lymphocytes/100 WBC (Bld) 12 % Low 24-44 [facility] Comment on above: Performed By: #### P TT, PT #### [address] [address] [employer] Machine Adjuster: Tato Ibarra MD Monocytes (Bld) [#/Vol] 0.67 10*3/uL Normal 0.1-0.8 [facility] Comment on above: Performed By: #### P TT, PT #### [address] [address] [employer] Adjuster: Tato Ibarra MD Monocytes/100 WBC (Bld) 7 % Normal 1-7 [facility] Comment on above: Performed By: #### P TT, PT #### [address] [address] [employer] Adjuster: Tato Ibarra MD Morphology Ritesh (Bld) [Interp] ANISOCYTOSIS PRESENT Normal [facility] Comment on above: Performed By: #### P TT, PT #### [address] [address] [employer] Adjuster: Tato Ibarra MD Neutrophil (Seg) 81 % High 36-66 [facility] Comment on above: Performed By: #### P TT, PT #### [address] [address] [employer] Adjuster: Tato Ibarra MD Erythrocyte distribution width (RBC) [Ratio] 20.6 % High 11.8-14.4 [facility] Comment on above: Performed By: #### P TT, PT #### [address] [address] [employer] Adjuster: Tato Ibarra MD Hematocrit (Bld) [Volume fraction] 27.2 % Low 36.3-47.1 [facility] Comment on above: Performed By: #### P TT, PT #### [address] [address] En[employer] Machine Adjuster: Tato Ibarra MD Hemoglobin (Bld) [Mass/Vol] 8.8 g/dL Low 11.9-15.1 [facility] Comment on above: Performed By: #### P TT, PT #### [address] [address] [employer] Adjuster: Tato Ibarra MD MCH (RBC) [Entitic mass] 30.6 pg Normal 25.2-33.5 [facility] Comment on above: Performed By: #### P TT, PT #### [address] [address] [employer] Adjuster: Tato Ibarra MD MCHC (RBC) [Mass/Vol] 32.4 g/dL Normal 28.4-34.8 [facility] Comment on above: Performed By: #### P TT, PT #### [address] [address] [employer] Adjuster: Tato Ibarra MD MCV (RBC) [Entitic vol] 94.4 fL Normal 82.6-102.9 [facility] Comment on above: Performed By: #### P TT, PT #### [address] [address] [employer] Adjuster: Tato Ibarra MD NRBC Automated 0.0 per 100 WBC Normal 0.0 [facility] Comment on above: Performed By: #### P TT, PT #### [address] [address] [employer] Adjuster: Tato Ibarra MD Platelet mean volume (Bld) [Entitic vol] 10.5 fL Normal 8.1-13.5 [facility] Comment on above: Performed By: #### P TT, PT #### [address] [address] [employer] Adjuster: Tato Ibarra MD Platelets (Bld) [#/Vol] 268 10*3/uL Normal 138-453 [facility] Comment on above: Performed By: #### P TT, PT #### [address] [address] [employer] Adjuster: Tato Ibarra MD RBC (Bld) [#/Vol] 2.88 10*6/uL Low 3.95-5.11 [facility] Comment on above: Performed By: #### P TT, PT #### [facility] [employer] [address] [place] [address] Envelope F[employer] Machine Adjuster: Tato Ibarra MD WBC (Bld) [#/Vol] 9.6 10*3/uL Normal 3.5-11.3 [facility] Comment on above: Performed By: #### P TT, PT #### [facility] [employer] [address] [place] [address] Envelope F[employer] Machine Adjuster: Tato Ibarra MD Calcium, Ionicon 01-08-2024 Calcium [Moles/Vol] 1.12 mmol/L Low 1.13-1.33 [facility] Comment on above: Performed By: #### P TT, PT #### [facility] [employer] [address] [place] [address] En[employer] Machine Adjuster: Tato Ibarra MD Hgb/Hcton 01-08-2024 Hematocrit (Bld) [Volume fraction] 24.7 % Low 36.3-47.1 [facility] Comment on above: Performed By: #### O SMO, LD, MG, JESUS, TSHX, LIVP, B12FOL, LACTIC, FT4, BMP #### [facility] [employer] [address] [place] [address] Envelope [employer] Machine Adjuster: Tato Ibarra MD Hemoglobin (Bld) [Mass/Vol] 8.0 g/dL Low 11.9-15.1 [facility] Comment on above: Performed By: #### O SMO, LD, MG, JESUS, TSHX, LIVP, B12FOL, LACTIC, FT4, BMP #### [facility] [employer] [address] [place] [phone] Envelope Folding Machine Adjuster: Tato Ibarra MD Hematocrit (Bld) [Volume fraction] 27.3 % Low 36.3-47.1 [facility] Comment on above: Performed By: #### P TT, PT #### [facility] [address] [place] [address] En[employer] Machine Adjuster: Tato Ibarra MD Hemoglobin (Bld) [Mass/Vol] 8.6 g/dL Low 11.9-15.1 [facility] Comment on above: Performed By: #### P TT, PT #### [address] [phone] [employer] Adjuster: Tato Ibarra MD Hematocrit (Bld) [Volume fraction] 26.5 % Low 36.3-47.1 [facility] Comment on above: Performed By: #### O SMO, LD, MG, JESUS, TSHX, LIVP, B12FOL, LACTIC, FT4, BMP #### [address] [address] [employer] Adjuster: Tato Ibarra MD Hemoglobin (Bld) [Mass/Vol] 8.1 g/dL Low 11.9-15.1 [facility] Comment on above: Performed By: #### O SMO, LD, MG, JESUS, TSHX, LIVP, B12FOL, LACTIC, FT4, BMP #### [facility] [employer] [address] [place] [address] Envelope F[employer] Machine Adjuster: Tato Ibarra MD Hematocrit (Bld) [Volume fraction] 26.0 % Low 36.3-47.1 [facility] Comment on above: Performed By: #### O SMO, LD, MG, EJSUS, TSHX, LIVP, B12FOL, LACTIC, FT4, BMP #### [facility] [employer] [address] [place] [address] [phone] En[employer] Machine Adjuster: Tato Ibarra MD Hemoglobin (Bld) [Mass/Vol] 8.0 g/dL Low 11.9-15.1 [facility] Comment on above: Performed By: #### O SMO, LD, MG, JESUS, TSHX, LIVP, B12FOL, LACTIC, FT4, BMP #### [facility] [employer] [address] [place] [address] En[employer] Machine Adjuster: Tato Ibarra MD K (Potassium)on 01-08-2024 Potassium [Moles/Vol] 3.3 mmol/L Low 3.7-5.3 [facility] Comment on above: Performed By: #### P TT, PT #### [facility] [employer] [address] [place] [address] Envelope [employer] Machine Adjuster: Tato Ibarra MD Magnesiumon 01-08-2024 Magnesium [Mass/Vol] 1.8 mg/dL Normal 1.6-2.6 [facility] Comment on above: Performed By: #### P TT, PT #### [facility] [employer] [address] [place] [address] Envelope [employer] Machine Adjuster: Tato Ibarra MD Troponinon 01-08-2024 Troponin, High Sens 83 ng/L Critically high 0-14 [facility] Comment on above: Result Comment: High Sensitivity Troponin values cannot be compared with other Troponin methodologies. Previous Alert Value Reported Performed By: #### P TT, PT #### [address] [address] [employer] Adjuster: Tato Ibarra MD Troponin, High Sens 84 ng/L Critically high 0-14 [facility] Comment on above: Result Comment: High Sensitivity Troponin values cannot be compared with other Troponin methodologies. Performed By: #### P TT, PT #### [facility] [employer] [address] [place] [address] Envelope [employer] Machine Adjuster: Tato Ibarra MD Troponin, High Sens 42 ng/L High 0-14 [facility] Comment on above: Result Comment: High Sensitivity Troponin values cannot be compared with other Troponin methodologies. Performed By: #### O SMO, LD, MG, JESUS, TSHX, LIVP, B12FOL, LACTIC, FT4, BMP #### [facility] [employer] [address] [place] [phone] Envelope [employer] Machine Adjuster: Tato Ibarra MD XR CHEST PORTABLEon 01-08-20 XR CHEST PORTABLE EXAMINATION: ONE XRAY VIEW [...] Gildardo Caraballo MD 01/08/24 Final result Normal [facility] Basic Metab w/rfx MGon 01-06 Anion gap [Moles/Vol] 8 mmol/L Low 9-16 [facility] Comment on above: Performed By: #### O SMO, LD, MG, JESUS, TSHX, LIVP, B12FOL, LACTIC, FT4, BMP #### [facility] [employer] [address] [place] [phone] En[employer] Machine Adjuster: Tato Ibarra MD Calcium [Mass/Vol] 7.5 mg/dL Low 8.6-10.4 [facility] Comment on above: Performed By: #### O SMO, LD, MG, JESUS, TSHX, LIVP, B12FOL, LACTIC, FT4, BMP #### [facility] [employer] [address] [place] [phone] En[employer] Machine Adjuster: Tato Ibarra MD Chloride [Moles/Vol] 107 mmol/L Normal 98-107 [facility] Comment on above: Performed By: #### O SMO, LD, MG, JESUS, TSHX, LIVP, B12FOL, LACTIC, FT4, BMP #### [address] [phone] [employer] Adjuster: Tato Ibarra MD CO2 [Moles/Vol] 24 mmol/L Normal 20-31 [facility] Comment on above: Performed By: #### O SMO, LD, MG, JESUS, TSHX, LIVP, B12FOL, LACTIC, FT4, BMP #### [address] [phone] [employer] Adjuster: Tato Ibarra MD Creatinine [Mass/Vol] 0.4 mg/dL Low 0.50-0.90 [facility] Comment on above: Performed By: #### O SMO, LD, MG, JESUS, TSHX, LIVP, B12FOL, LACTIC, FT4, BMP #### [address] [phone] [employer] Adjuster: Tato Ibarra MD GFR/1.73 sq M.predicted among non-blacks MDRD (S/P/Bld) [Vol rate/Area] mL/min/{1.73_m2} Normal >60 [facility] Comment on above: Result Comment: These results [...] TSHX, LIVP, B12FOL, LACTIC, FT4, BMP #### [address] [phone] [employer] Adjuster: Tato Ibarra MD Glucose [Mass/Vol] 88 mg/dL Normal 74-99 [facility] Comment on above: Performed By: #### O SMO, LD, MG, JESUS, TSHX, LIVP, B12FOL, LACTIC, FT4, BMP #### [facility] [employer] [address] [place] [address] [phone] En[employer] Adjuster: Tato Ibarra MD Potassium [Moles/Vol] 3.2 mmol/L Low 3.7-5.3 [facility] Comment on above: Result Comment: SPEC IMEN SLIGHTLY HEMOLYZED, RESULTS MAY BE ADVERSELY AFFECTED. Performed By: #### O SMO, LD, MG, JESUS, TSHX, LIVP, B12FOL, LACTIC, FT4, BMP #### [facility] [address] [place] [address] [phone] En[employer] Machine Adjuster: Tato Ibarra MD Sodium [Moles/Vol] 139 mmol/L Normal 136-145 [facility] Comment on above: Performed By: #### O SMO, LD, MG, JESUS, TSHX, LIVP, B12FOL, LACTIC, FT4, BMP #### [address] [address] Envelope Folding Machine Adjuster: Tato Ibarra MD Urea nitrogen [Mass/Vol] 8 mg/dL Normal 6-20 [facility] Comment on above: Performed By: #### O SMO, LD, MG, JESUS, TSHX, LIVP, B12FOL, LACTIC, FT4, BMP #### [facility] [employer] [address] [place] [address] [phone] En[employer] F[employer] Machine Adjuster: Tato Ibarra MD CBC with Diffon 01-07-2024 Abs. Basophil 0.06 k/uL Normal 0.00-0.20 [facility] Comment on above: Performed By: #### O SMO, LD, MG, JESUS, TSHX, LIVP, B12FOL, LACTIC, FT4, BMP #### [facility] [employer] [address] [place] [address] [phone] [employer] Machine Adjuster: Tato Ibarra MD Abs.Imm.Granulocyte 0.00 k/uL Normal 0.00-0.30 [facility] Comment on above: Performed By: #### O SMO, LD, MG, JESUS, TSHX, LIVP, B12FOL, LACTIC, FT4, BMP #### [address] [id number] [employer] Adjuster: Tato Ibarra MD Abs.Neutrophil (Seg) 3.94 k/uL Normal 1.50-8.10 [facility] Comment on above: Performed By: #### O SMO, LD, MG, JESUS, TSHX, LIVP, B12FOL, LACTIC, FT4, BMP #### [address] [address] [employer] Adjuster: Tato Ibarra MD Basophils/100 WBC (Bld) 1 % Normal 0-2 [facility] Comment on above: Performed By: #### O SMO, LD, MG, JESUS, TSHX, LIVP, B12FOL, LACTIC, FT4, BMP #### [place] [address] [employer] Machine Adjuster: Tato Ibarra MD Eosinophils (Bld) [#/Vol] 0.12 10*3/uL Normal 0.00-0.44 [facility] Comment on above: Performed By: #### O SMO, LD, MG, JESUS, TSHX, LIVP, B12FOL, LACTIC, FT4, BMP #### [address] [address] [employer] Adjuster: Tato Ibarra MD Eosinophils/100 WBC (Bld) 2 % Normal 1-4 [facility] Comment on above: Performed By: #### O SMO, LD, MG, JESUS, TSHX, LIVP, B12FOL, LACTIC, FT4, BMP #### [place] [address] [employer] Machine Adjuster: Tato Ibarra MD Immature granulocytes/100 WBC (Bld) 0 % Normal 0 [facility] Comment on above: Performed By: #### O SMO, LD, MG, JESUS, TSHX, LIVP, B12FOL, LACTIC, FT4, BMP #### [facility] [address] [place] [address] Envelope F[employer] Machine Adjuster: Tato Ibarra MD Lymphocytes (Bld) [#/Vol] 1.22 10*3/uL Normal 1.10-3.70 [facility] Comment on above: Performed By: #### O SMO, LD, MG, JESUS, TSHX, LIVP, B12FOL, LACTIC, FT4, BMP #### [facility] [address] [place] [phone] Envelope F[employer] Machine Adjuster: Tato Ibarra MD Lymphocytes/100 WBC (Bld) 21 % Low 24-43 [facility] Comment on above: Performed By: #### O SMO, LD, MG, JESUS, TSHX, LIVP, B12FOL, LACTIC, FT4, BMP #### [facility] [employer] [address] [place] [address] En[employer] F[employer] Machine Adjuster: Tato Ibarra MD Monocytes (Bld) [#/Vol] 0.46 10*3/uL Normal 0.10-1.20 [facility] Comment on above: Performed By: #### O SMO, LD, MG, JESUS, TSHX, LIVP, B12FOL, LACTIC, FT4, BMP #### [facility] [employer] [address] [place] [address] Envelope F[employer] Machine Adjuster: Tato Ibarra MD Monocytes/100 WBC (Bld) 8 % Normal 3-12 [facility] Comment on above: Performed By: #### O SMO, LD, MG, JESUS, TSHX, LIVP, B12FOL, LACTIC, FT4, BMP #### [facility] [employer] [address] [place] [address] Envelope F[employer] Machine Adjuster: Tato Ibarra MD Morphology Ritesh (Bld) [Interp] ANISOCYTOSIS PRESENT Normal [facility] Comment on above: Performed By: #### O SMO, LD, MG, JESUS, TSHX, LIVP, B12FOL, LACTIC, FT4, BMP #### [employer] [address] [place] [address] Envelope Folding Machine Adjuster: Tato Ibarra MD Neutrophil (Seg) 68 % High 36-65 [facility] Comment on above: Performed By: #### O SMO, LD, MG, JESUS, TSHX, LIVP, B12FOL, LACTIC, FT4, BMP #### [address] [address] [employer] Machine Adjuster: Tato Ibarra MD Erythrocyte distribution width (RBC) [Ratio] 22.0 % High 11.8-14.4 [facility] Comment on above: Performed By: #### O SMO, LD, MG, JESUS, TSHX, LIVP, B12FOL, LACTIC, FT4, BMP #### [facility] [employer] [address] [place] [address] Envelope F[employer] Machine Adjuster: Tato Ibarra MD Hematocrit (Bld) [Volume fraction] 23.2 % Low 36.3-47.1 [facility] Comment on above: Performed By: #### O SMO, LD, MG, JESUS, TSHX, LIVP, B12FOL, LACTIC, FT4, BMP #### [facility] [employer] [address] [place] [phone] Envelope F[employer] Machine Adjuster: Tato Ibarra MD Hemoglobin (Bld) [Mass/Vol] 7.2 g/dL Low 11.9-15.1 [facility] Comment on above: Performed By: #### O SMO, LD, MG, JESUS, TSHX, LIVP, B12FOL, LACTIC, FT4, BMP #### [employer] [address] [place] [address] [phone] Envelope Folding Machine Adjuster: Tato Ibarra MD MCH (RBC) [Entitic mass] 29.4 pg Normal 25.2-33.5 [facility] Comment on above: Performed By: #### O SMO, LD, MG, JESUS, TSHX, LIVP, B12FOL, LACTIC, FT4, BMP #### [address] [phone] [employer] Machine Adjuster: Tato Ibarra MD MCHC (RBC) [Mass/Vol] 31.0 g/dL Normal 28.4-34.8 [facility] Comment on above: Performed By: #### O SMO, LD, MG, JESUS, TSHX, LIVP, B12FOL, LACTIC, FT4, BMP #### [address] [address] [employer] Machine Adjuster: Tato Ibarra MD MCV (RBC) [Entitic vol] 94.7 fL Normal 82.6-102.9 [facility] Comment on above: Performed By: #### O SMO, LD, MG, JESUS, TSHX, LIVP, B12FOL, LACTIC, FT4, BMP #### [address] [phone] [employer] Machine Adjuster: Tato Ibarra MD NRBC Automated 0.0 per 100 WBC Normal 0.0 [facility] Comment on above: Performed By: #### O SMO, LD, MG, JESUS, TSHX, LIVP, B12FOL, LACTIC, FT4, BMP #### [address] [address] [employer] Machine Adjuster: Tato Ibarra MD Platelet mean volume (Bld) [Entitic vol] 11.4 fL Normal 8.1-13.5 [facility] Comment on above: Performed By: #### O SMO, LD, MG, JESUS, TSHX, LIVP, B12FOL, LACTIC, FT4, BMP #### [address] [phone] [employer] Adjuster: Tato Ibarra MD Platelets (Bld) [#/Vol] 197 10*3/uL Normal 138-453 [facility] Comment on above: Performed By: #### O SMO, LD, MG, JESUS, TSHX, LIVP, B12FOL, LACTIC, FT4, BMP #### [facility] [address] [place] [address] [phone] Envelope F[employer] Machine Adjuster: Tato Ibarra MD RBC (Bld) [#/Vol] 2.45 10*6/uL Low 3.95-5.11 [facility] Comment on above: Performed By: #### O SMO, LD, MG, JESUS, TSHX, LIVP, B12FOL, LACTIC, FT4, BMP #### [facility] [employer] [address] [place] [address] [phone] En[employer] F[employer] Machine Adjuster: Tato Ibarra MD WBC (Bld) [#/Vol] 5.8 10*3/uL Normal 3.5-11.3 [facility] Comment on above: Performed By: #### O SMO, LD, MG, JESUS, TSHX, LIVP, B12FOL, LACTIC, FT4, BMP #### [facility] [employer] [address] [place] [address] [phone] En[employer] F[employer] Machine Adjuster: Tato Ibarra MD Calcium, Ionicon 01-07-2024 Calcium [Moles/Vol] 1.11 mmol/L Low 1.13-1.33 [facility] Comment on above: Performed By: #### O SMO, LD, MG, JESUS, TSHX, LIVP, B12FOL, LACTIC, FT4, BMP #### [facility] [employer] [address] [place] [address] [phone] En[employer] Machine Adjuster: Tato Ibarra MD Glucose,Whole Bloodon 2023 Glucose [Mass/Vol] 97 mg/dL Normal 65-105 [facility] Glucose [Mass/Vol] 100 mg/dL Normal 65-105 [facility] Glucose [Mass/Vol] 89 mg/dL Normal 65-105 [facility] Hgb/Hcton 01-07-2024 Hematocrit (Bld) [Volume fraction] 21.9 % Low 36.3-47.1 [facility] Comment on above: Performed By: #### O SMO, LD, MG, JESUS, TSHX, LIVP, B12FOL, LACTIC, FT4, BMP #### [facility] [address] [place] [address] Envelope F[employer] Machine Adjuster: Tato Ibarra MD Hemoglobin (Bld) [Mass/Vol] 7.1 g/dL Low 11.9-15.1 [facility] Comment on above: Performed By: #### O SMO, LD, MG, JESUS, TSHX, LIVP, B12FOL, LACTIC, FT4, BMP #### [employer] [facility] [facility] [address] [place] [id number] Envelope Folding Machine Adjuster: Tato Ibarra MD Hematocrit (Bld) [Volume fraction] 26.5 % Low 36.3-47.1 [facility] Comment on above: Performed By: #### O SMO, LD, MG, JESUS, TSHX, LIVP, B12FOL, LACTIC, FT4, BMP #### [facility] [address] [place] [address] Envelope F[employer] Machine Adjuster: Tato Ibarra MD Hemoglobin (Bld) [Mass/Vol] 8.2 g/dL Low 11.9-15.1 [facility] Comment on above: Performed By: #### O SMO, LD, MG, JESUS, TSHX, LIVP, B12FOL, LACTIC, FT4, BMP #### [facility] [address] [place] [phone] [employer] Machine Adjuster: Tato Ibarra MD K (Potassium)on 01-07-2024 Potassium [Moles/Vol] 3.7 mmol/L Normal 3.7-5.3 [facility] Comment on above: Performed By: #### P TT, PT #### [facility] [employer] [address] [place] [address] En[employer] F[employer] Machine Adjuster: Tato Ibarra MD MRSA, DNA, Nasalon MRSA, DNA, Nasal Negative Normal NEG [facility] Comment on above: Result Comment: NEGA [...] TSHX, LIVP, B12FOL, LACTIC, FT4, BMP #### [address] [address] [employer] Adjuster: Tato Ibarra MD Magnesiumon 01-07-2024 Magnesium [Mass/Vol] 2.1 mg/dL Normal 1.6-2.6 [facility] Comment on above: Performed By: #### O SMO, LD, MG, JESUS, TSHX, LIVP, B12FOL, LACTIC, FT4, BMP #### [address] [address] [employer] Adjuster: Tato Ibarra MD Basic Metab w/rfx MG 01-05 Anion gap [Moles/Vol] 7 mmol/L Low 9-16 [facility] Comment on above: Performed By: #### O SMO, LD, MG, JESUS, TSHX, LIVP, B12FOL, LACTIC, FT4, BMP #### [address] [address] [employer] Adjuster: Tato Ibarra MD Calcium [Mass/Vol] 7.2 mg/dL Low 8.6-10.4 [facility] Comment on above: Performed By: #### O SMO, LD, MG, JESUS, TSHX, LIVP, B12FOL, LACTIC, FT4, BMP #### [facility] [address] [place] [address] [employer] Machine Adjuster: Tato Ibarra MD Chloride [Moles/Vol] 111 mmol/L High 98-107 [facility] Comment on above: Performed By: #### O SMO, LD, MG, JESUS, TSHX, LIVP, B12FOL, LACTIC, FT4, BMP #### [facility] [address] [place] [address] [employer] Adjuster: Tato Ibarra MD CO2 [Moles/Vol] 24 mmol/L Normal 20-31 [facility] Comment on above: Performed By: #### O SMO, LD, MG, JESUS, TSHX, LIVP, B12FOL, LACTIC, FT4, BMP #### [facility] [address] [place] [address] [employer] Adjuster: Tato Ibarra MD Creatinine [Mass/Vol] 0.4 mg/dL Low 0.50-0.90 [facility] Comment on above: Performed By: #### O SMO, LD, MG, JESUS, TSHX, LIVP, B12FOL, LACTIC, FT4, BMP #### [address] [address] [employer] Adjuster: Tato Ibarra MD GFR/1.73 sq M.predicted among non-blacks MDRD (S/P/Bld) [Vol rate/Area] mL/min/{1.73_m2} Normal >60 [facility] Comment on above: Result Comment: These results [...] TSHX, LIVP, B12FOL, LACTIC, FT4, BMP #### [facility] [place] [address] Envelope [employer] Machine Adjuster: Tato Ibarra MD Glucose [Mass/Vol] 103 mg/dL High 74-99 [facility] Comment on above: Performed By: #### O SMO, LD, MG, JESUS, TSHX, LIVP, B12FOL, LACTIC, FT4, BMP #### [facility] [address] [place] [address] [phone] [employer] Adjuster: Tato Ibarra MD Potassium [Moles/Vol] 3.7 mmol/L Normal 3.7-5.3 [facility] Comment on above: Performed By: #### O SMO, LD, MG, JESUS, TSHX, LIVP, B12FOL, LACTIC, FT4, BMP #### [facility] [address] [place] [address] [phone] En[employer] Machine Adjuster: Tato Ibarra MD Sodium [Moles/Vol] 142 mmol/L Normal 136-145 [facility] Comment on above: Performed By: #### O SMO, LD, MG, JESUS, TSHX, LIVP, B12FOL, LACTIC, FT4, BMP #### [facility] [address] [place] [address] En[employer] Machine Adjuster: Tato Ibarra MD Urea nitrogen [Mass/Vol] 14 mg/dL Normal 6-20 [facility] Comment on above: Performed By: #### O SMO, LD, MG, JESUS, TSHX, LIVP, B12FOL, LACTIC, FT4, BMP #### [place] [address] [employer] Adjuster: Tato Ibarra MD Basophils Auto (Bld) [#/Vol] on 01-06-2024 Basophils (Bld) [#/Vol] 0.0 10 3/uL 0.0-0.1 [facility] Basophils/100 WBC Auto (Bld) on 01-06-2024 Basophils/100 WBC (Bld) 0.5 % 0.2-2.0 [facility] CBC with Diffon 01-06-2024 Abs. Basophil <0.03 Normal 0.00-0.20 [facility] Comment on above: Performed By: #### P TT, PT #### [id number] [place], [place] [phone] [employer] Adjuster: Tato Ibarra MD Abs.Imm.Granulocyte 0.04 k/uL Normal 0.00-0.30 [facility] Comment on above: Performed By: #### P TT, PT #### [address] [address] [employer] Adjuster: Tato Ibarra MD Abs.Neutrophil (Seg) 5.60 k/uL Normal 1.50-8.10 [facility] Comment on above: Performed By: #### P TT, PT #### [address] [address] [employer] Adjuster: Tato Ibarra MD Basophils/100 WBC (Bld) 0 % Normal 0-2 [facility] Comment on above: Performed By: #### P TT, PT #### [place] [address] [employer] Adjuster: Tato Ibarra MD Eosinophils (Bld) [#/Vol] 0.03 10*3/uL Normal 0.00-0.44 [facility] Comment on above: Performed By: #### P TT, PT #### [address] [address] [employer] Adjuster: Tato Ibarra MD Eosinophils/100 WBC (Bld) 0 % Low 1-4 [facility] Comment on above: Performed By: #### P TT, PT #### [place] [address] [employer] Adjuster: Tato Ibarra MD Erythrocyte distribution width (RBC) [Ratio] 19.9 % High 11.8-14.4 [facility] Comment on above: Performed By: #### P TT, PT #### [place] [address] [employer] Adjuster: Tato Ibarra MD Hematocrit (Bld) [Volume fraction] 22.4 % Low 36.3-47.1 [facility] Comment on above: Performed By: #### P TT, PT #### [address] [address] [employer] Adjuster: Tato Ibarra MD Hemoglobin (Bld) [Mass/Vol] 6.9 g/dL Critically low 11.9-15.1 [facility] Comment on above: Performed By: #### P TT, PT #### [address] [address] [employer] Adjuster: Tato Ibarra MD Immature granulocytes/100 WBC (Bld) 1 % High 0 [facility] Comment on above: Performed By: #### P TT, PT #### [address] [address] [employer] Adjuster: Tato Ibarra MD Lymphocytes (Bld) [#/Vol] 0.99 10*3/uL Low 1.10-3.70 [facility] Comment on above: Performed By: #### P TT, PT #### [address] [address] [employer] Adjuster: Tato Ibarra MD Lymphocytes/100 WBC (Bld) 14 % Low 24-43 [facility] Comment on above: Performed By: #### P TT, PT #### [address] [address] [employer] Adjuster: Tato Ibarra MD MCH (RBC) [Entitic mass] 30.3 pg Normal 25.2-33.5 [facility] Comment on above: Performed By: #### P TT, PT #### [address] [address] [employer] Adjuster: Tato Ibarra MD MCHC (RBC) [Mass/Vol] 30.8 g/dL Normal 28.4-34.8 [facility] Comment on above: Performed By: #### P TT, PT #### [address] [address] [employer] Adjuster: Tato Ibarra MD MCV (RBC) [Entitic vol] 98.2 fL Normal 82.6-102.9 [facility] Comment on above: Performed By: #### P TT, PT #### [address] [address] [employer] Adjuster: Tato Ibarra MD Monocytes (Bld) [#/Vol] 0.53 10*3/uL Normal 0.10-1.20 [facility] Comment on above: Performed By: #### P TT, PT #### [place] [address] [employer] Adjuster: Tato Ibarra MD Monocytes/100 WBC (Bld) 7 % Normal 3-12 [facility] Comment on above: Performed By: #### P TT, PT #### [place] [address] [employer] Adjuster: Tato Ibarra MD Neutrophil (Seg) 78 % High 36-65 [facility] Comment on above: Performed By: #### P TT, PT #### [address] [address] [employer] Adjuster: Tato Ibarra MD NRBC Automated 0.0 per 100 WBC Normal 0.0 [facility] Comment on above: Performed By: #### P TT, PT #### [place] [address] [employer] Adjuster: Tato Ibarra MD Platelet mean volume (Bld) [Entitic vol] 10.6 fL Normal 8.1-13.5 [facility] Comment on above: Performed By: #### P TT, PT #### [address] [address] [employer] Adjuster: Tato Ibarra MD Platelets (Bld) [#/Vol] 195 10*3/uL Normal 138-453 [facility] Comment on above: Performed By: #### P TT, PT #### [address] [address] [employer] Adjuster: Tato Ibarra MD RBC (Bld) [#/Vol] 2.28 10*6/uL Low 3.95-5.11 [facility] Comment on above: Performed By: #### P TT, PT #### [address] [address] [employer] Adjuster: Tato Ibarra MD RBC morphology finding Nom (Bld) ANISOCYTOSIS PRESENT Normal [facility] Comment on above: Performed By: #### P TT, PT #### [address] [address] [employer] Adjuster: Tato Ibarra MD WBC (Bld) [#/Vol] 7.2 10*3/uL Normal 3.5-11.3 [facility] Comment on above: Performed By: #### P TT, PT #### [address] [address] [employer] Adjuster: Tato Ibarra MD CT CHEST WO CONTRASTon [...] Cory Bella MD 01/06/24 Final result Normal [facility] CTA ABDOMEN PELVIS W WO CONT [facility] 01-06-2024 CTA ABDOMEN PELVIS W WO CONTRAST [...] Dain Rodriguez MD 01/06/24 Final result Normal [facility] Calcium, [employer] 01-06-2024 Calcium [Moles/Vol] 1.07 mmol/L Low 1.13-1.33 [facility] Comment on above: Performed By: #### O SMO, LD, MG, JESUS, TSHX, LIVP, B12FOL, LACTIC, FT4, BMP #### [employer] [address] [place] [address] Envelope [employer] Machine Adjuster: Tato Ibarra MD Eosinophils/100 WBC Auto (Bl d)on 01-06-2024 Eosinophils/100 WBC (Bld) 1.2 % 0.9-7.0 [facility] Erythrocyte distribution wid th Auto (RBC) [Ratio]on 01-06-2024 Erythrocyte distribution width (RBC) [Ratio] 19.2 % High 11.0-15.0 [facility] Estimated glomerular filtrat ion rate (GFR) non- Americanon 01-06-2024 GFR/1.73 sq M.predicted among non-blacks MDRD (S/P/Bld) [Vol rate/Area] mL/min/{1.73_m2} >=60 [facility] Globulin Calc (S) [Mass/Vol] on 01-06-2024 Globulin (S) [Mass/Vol] 2.1 g/dL [facility] Hematocrit Auto (Bld) [Volum e fraction]on 01-06-2024 Hematocrit (Bld) [Volume fraction] 19.1 % Low 36.0-48.0 [facility] Comment on above: RESULTS CALLED TO RACHEL TAI RN Hemoglobin [Mass/volume] in Bloodon 01-06-2024 Hemoglobin (Bld) [Mass/Vol] 6.0 g/dL Low 12.0-16.0 [facility] Comment on above: RESULTS CALLED TO RACHEL TAI RN Hemoglobin.gastrointestinal [Presence] in Stoolon 01-06-2024 Hemoglobin.gastroint estinal Ql (Stl) Positive Abnormal [facility] Hgb/Hcton 01-06-2024 Hematocrit (Bld) [Volume fraction] 23.4 % Low 36.3-47.1 [facility] Comment on above: Performed By: #### O SMO, LD, MG, JESUS, TSHX, LIVP, B12FOL, LACTIC, FT4, BMP #### [employer] [address] [place], [place] [phone] [employer] Adjuster: Tato Ibarra MD Hemoglobin (Bld) [Mass/Vol] 7.5 g/dL Low 11.9-15.1 [facility] Comment on above: Performed By: #### O SMO, LD, MG, JESUS, TSHX, LIVP, B12FOL, LACTIC, FT4, BMP #### [employer] [facility] [place], [place] [phone] Envelope F[employer] Machine Adjuster: Tato Ibarra MD Hematocrit (Bld) [Volume fraction] 23.9 % Low 36.3-47.1 [facility] Comment on above: Performed By: #### O SMO, LD, MG, JESUS, TSHX, LIVP, B12FOL, LACTIC, FT4, BMP #### [facility] [place], [place] [phone] [employer] Machine Adjuster: Tato Ibarra MD Hemoglobin (Bld) [Mass/Vol] 7.8 g/dL Low 11.9-15.1 [facility] Comment on above: Performed By: #### O SMO, LD, MG, JESUS, TSHX, LIVP, B12FOL, LACTIC, FT4, BMP #### [facility] [address] [place] [address] [phone] [employer] Adjuster: Tato Ibarra MD Laboratory - Chemistry and C hemistry - challengeon 01-06-2024 Albumin [Mass/Vol] 1.6 g/dL Low 3.4-5.0 [facility] ALP [Catalytic activity/Vol] 92 U/L 46-116 [facility] ALT [Catalytic activity/Vol] 19 U/L 14-59 [facility] AST [Catalytic activity/Vol] 34 U/L 15-37 [facility] Bilirubin [Mass/Vol] 0.3 mg/dL 0.2-1.0 [facility] Bilirubin.direct [Mass/Vol] 0.1 mg/dL 0.0-0.2 [facility] Calcium [Mass/Vol] 7.8 mg/dL Low 8.5-10.1 [facility] Chloride [Moles/Vol] 109 mmol/L High 98-107 [facility] CO2 [Moles/Vol] 28.5 mmol/L 21.0-32.0 [facility] Creatinine [Mass/Vol] 0.63 mg/dL 0.55-1.02 [facility] GFR/1.73 sq M.predicted MDRD (S/P/Bld) [Vol rate/Area] mL/min/{1.73_m2} >=60 [facility] Glucose [Mass/Vol] 106 mg/dL 74-106 [facility] Potassium [Moles/Vol] 3.9 mmol/L 3.5-5.1 [facility] Protein [Mass/Vol] 3.7 g/dL Low 6.4-8.2 [facility] Sodium [Moles/Vol] 142 mmol/L 136-145 [facility] Urea nitrogen [Mass/Vol] 12.0 mg/dL 7.0-18.0 [facility] Urea nitrogen/Creatinine [Mass ratio] 19.0 mg/mg [facility] Laboratory - Hematology and Cell countson 01-06-2024 Immature granulocytes/100 WBC (Bld) 0.5 % 0.0-0.5 [facility] Lactic Acidon 01-06-2024 Lactic Acid,Whole Bl 1.4 mmol/L Normal 0.7-2.1 [facility] Comment on above: Performed By: #### O SMO, LD, MG, EJSUS, TSHX, LIVP, B12FOL, LACTIC, FT4, BMP #### [facility] [employer] [facility] [place] [address] [employer] Machine Adjuster: Tato Ibarra MD Leukocytes [#/volume] correc patty for nucleated erythrocytes in Blood by Automated counon 01-06-2024 WBC corrected for nucl RBC Auto (Bld) [#/Vol] 7.8 10 3/uL 4.0-11.0 [facility] Liver Profileon 01-06-2024 Albumin [Mass/Vol] 2.4 g/dL Low 3.5-5.2 [facility] Comment on above: Performed By: #### O SMO, LD, MG, JESUS, TSHX, LIVP, B12FOL, LACTIC, FT4, BMP #### [address] [address] [employer] Adjuster: Tato Ibarra MD Albumin/Glob Ratio 2.0 Normal 1.0-2.5 [facility] Comment on above: Performed By: #### O SMO, LD, MG, JESUS, TSHX, LIVP, B12FOL, LACTIC, FT4, BMP #### [address] [address] [employer] Adjuster: Tato Ibarra MD Alkaline Phos 87 U/L Normal 35-104 [facility] Comment on above: Performed By: #### O SMO, LD, MG, JESUS, TSHX, LIVP, B12FOL, LACTIC, FT4, BMP #### [address] [address] [employer] Adjuster: Tato Ibarra MD ALT [Catalytic activity/Vol] 12 U/L Normal 10-35 [facility] Comment on above: Performed By: #### O SMO, LD, MG, JESUS, TSHX, LIVP, B12FOL, LACTIC, FT4, BMP #### [address] [address] Envelope Folding Machine Adjuster: Tato Ibarra MD AST [Catalytic activity/Vol] 30 U/L Normal 10-35 [facility] Comment on above: Performed By: #### O SMO, LD, MG, JESUS, TSHX, LIVP, B12FOL, LACTIC, FT4, BMP #### [address] [address] Envelope Folding Machine Adjuster: Tato Ibarra MD Bilirubin [Mass/Vol] 0.4 mg/dL Normal 0.00-1.20 [facility] Comment on above: Performed By: #### O SMO, LD, MG, JESUS, TSHX, LIVP, B12FOL, LACTIC, FT4, BMP #### [facility] [address] [place] [phone] Envelope Folding Machine Adjuster: Tato Ibarra MD Bilirubin, Indirect 0.2 mg/dL Normal 0.0-1.0 [facility] Comment on above: Performed By: #### O SMO, LD, MG, JESUS, TSHX, LIVP, B12FOL, LACTIC, FT4, BMP #### [address] [address] Envelope Folding Machine Adjuster: Tato Ibarra MD Bilirubin.indirect [Mass/Vol] 0.2 mg/dL Normal 0.0-0.2 [facility] Comment on above: Performed By: #### O SMO, LD, MG, JESUS, TSHX, LIVP, B12FOL, LACTIC, FT4, BMP #### [address] [address] Envelope F[employer] Machine Adjuster: Tato Ibarra MD Globulin (S) [Mass/Vol] 1.4 g/dL Normal [facility] Comment on above: Performed By: #### O SMO, LD, MG, JESUS, TSHX, LIVP, B12FOL, LACTIC, FT4, BMP #### [address] [address] Envelope F[employer] Machine Adjuster: Tato Ibarra MD Protein [Mass/Vol] 3.8 g/dL Low 6.6-8.7 [facility] Comment on above: Performed By: #### O SMO, LD, MG, JESUS, TSHX, LIVP, B12FOL, LACTIC, FT4, BMP #### [address] [address] Envelope Folding Machine Adjuster: Tato Ibarra MD Lymphocytes Auto (Bld) [#/Vo l]on 01-06-2024 Lymphocytes (Bld) [#/Vol] 1.1 10 3/uL Low 1.2-3.8 [facility] Lymphocytes/100 WBC Auto (Bl d)on 01-06-2024 Lymphocytes/100 WBC (Bld) 13.6 % Low 20.5-60.0 [facility] MCH Auto (RBC) [Entitic mass ]on 01-06-2024 MCH (RBC) [Entitic mass] 30.9 pg 26.7-34.0 [facility] MCHC Auto (RBC) [Mass/Vol]on 01-06-2024 MCHC (RBC) [Mass/Vol] 31.4 g/dL 29.9-35.2 [facility] MCV Auto (RBC) [Entitic vol] on 01-06-2024 MCV (RBC) [Entitic vol] 98.5 fL 81.0-99.0 [facility] MRSA, DNA, Nasalon Specimen Description .NASAL SWAB Normal [facility] Comment on above: Performed By: #### O SMO, LD, MG, JESUS, TSHX, LIVP, B12FOL, LACTIC, FT4, BMP #### [employer] [address] [place] [phone] Envelope Folding Machine Adjuster: Tato Ibarra MD Magnesiumon 01-06-2024 Magnesium [Mass/Vol] 1.9 mg/dL Normal 1.6-2.6 [facility] Comment on above: Performed By: #### O SMO, LD, MG, JESUS, TSHX, LIVP, B12FOL, LACTIC, FT4, BMP #### [employer] [address] [place] [phone] Envelope Folding Machine Adjuster: Tato Ibarra MD Monocytes Auto (Bld) [#/Vol] on 01-06-2024 Monocytes (Bld) [#/Vol] 0.4 10 3/uL 0.3-0.8 [facility] Monocytes/100 WBC Auto (Bld) on 01-06-2024 Monocytes/100 WBC (Bld) 5.6 % 1.7-12.0 [facility] Neutrophils Auto (Bld) [#/Vo l]on 01-06-2024 Neutrophils (Bld) [#/Vol] 6.1 10 3/uL 1.4-6.5 [facility] Neutrophils/100 WBC Auto (Bl d)on 01-06-2024 Neutrophils/100 WBC (Bld) 78.6 % High 43.0-75.0 [facility] No Panel Informationon 01-05 Eosinophils # (Auto) 0.1 10 3/uL 0.0-0.7 [facility] Immature Granulocyte # (Auto) 0.04 10 3/uL High 0.00-0.03 [facility] PTon 01-06-2024 INR Coag (PPP) [Relative time] 1.1 {INR} Normal [facility] Comment on above: Result Comment: Therapeutic Range: Moderate Anticoagulant Intensity: INR = 2.0-3.0 High Anticoagulant Intensity: INR = 2.5-3.5 Performed By: #### O SMO, LD, MG, JESUS, TSHX, LIVP, B12FOL, LACTIC, FT4, BMP #### [employer] [address] [place] [phone] Envelope Folding Machine Adjuster: Tato Ibarra MD PT Coag (PPP) [Time] 13.6 s Normal 11.7-14.9 [facility] Comment on above: Performed By: #### O SMO, LD, MG, JESUS, TSHX, LIVP, B12FOL, LACTIC, FT4, BMP #### [employer] [address] [place] [phone] Envelope Folding Machine Adjuster: Tato Ibarra MD Platelet mean volume Auto (B ld) [Entitic vol]on 01-06-2024 Platelet mean volume (Bld) [Entitic vol] 10.6 fL 9.5-13.5 [facility] Platelets Auto (Bld) [#/Vol] on 01-06-2024 Platelets (Bld) [#/Vol] 261 10 3/uL 150-450 [facility] RBC Auto (Bld) [#/Vol]on RBC (Bld) [#/Vol] 1.94 10 6/uL Low 4.20-5.40 [facility] Serum or plasma albumin/glob ulin mass ratioon 01-06-2024 Albumin/Globulin [Mass ratio] 0.8 {ratio} [facility] Serum or plasma anion gap de terminationon 01-06-2024 Anion gap [Moles/Vol] 8.4 mmol/L [facility] Troponinon 01-06-2024 Troponin, High Sens 9 ng/L Normal 0-14 [facility] Comment on above: Result Comment: High Sensitivity Troponin values cannot be compared with other Troponin methodologies. Performed By: #### P TT, PT #### [employer] [address] [place] [address] [phone] Envelope Folding Machine Adjuster: Tato Ibarra MD Troponin, High Sens 9 ng/L Normal 0-14 [facility] Comment on above: Result Comment: High Sensitivity Troponin values cannot be compared with other Troponin methodologies. Performed By: #### O SMO, LD, MG, JESUS, TSHX, LIVP, B12FOL, LACTIC, FT4, BMP #### [employer] [address] [place] [address] [phone] Envelope Folding Machine Adjuster: Tato Ibarra MD Troponin, High Sens 8 ng/L Normal 0-14 [facility] Comment on above: Result Comment: High Sensitivity Troponin values cannot be compared with other Troponin methodologies. Performed By: #### O SMO, LD, MG, JESUS, TSHX, LIVP, B12FOL, LACTIC, FT4, BMP #### [employer] [address] [place] [address] [phone] Envelope Folding Machine Adjuster: Tato Ibarra MD Basic Metabolic Panelon 12-24 Anion gap [Moles/Vol] 9 mmol/L 9 - 16 mmol/L [facility] [employer] Calcium [Mass/Vol] 8.0 mg/dL Low 8.6 - 10.4 mg/dL [facility] [employer] Chloride [Moles/Vol] 103 mmol/L 98 - 107 mmol/L [facility] [employer] CO2 [Moles/Vol] 27 mmol/L 20 - 31 mmol/L [facility] [employer] Creatinine [Mass/Vol] 0.3 mg/dL Low 0.50 - 0.90 mg/dL [facility] [employer] [facility] Comment on above: These results are not intended for use [...] following therapy that affects renal tubular secretion. Glucose [Mass/Vol] 85 mg/dL 74 - 99 mg/dL [facility] Interpretation and review of laboratory results Abnormal [facility] Potassium [Moles/Vol] 2.8 mmol/L Critically low 3.7 - 5.3 mmol/L [facility] Sodium [Moles/Vol] 139 mmol/L 136 - 145 mmol/L [facility] Urea nitrogen [Mass/Vol] 3 mg/dL Low 6 - 20 mg/dL [facility] Basic Metabolic Profon 01-04 Anion gap [Moles/Vol] 9 mmol/L Normal 9-16 [facility] Comment on above: Performed By: #### O SMO, LD, MG, JESUS, TSHX, LIVP, B12FOL, LACTIC, FT4, BMP #### [employer] [address] [place] [address] Envelope Folding Machine Adjuster: Tato Ibarra MD Calcium [Mass/Vol] 8.0 mg/dL Low 8.6-10.4 [facility] Comment on above: Performed By: #### O SMO, LD, MG, JESUS, TSHX, LIVP, B12FOL, LACTIC, FT4, BMP #### [employer] [address] [place] [address] Envelope Folding Machine Adjuster: Tato Ibarra MD Chloride [Moles/Vol] 103 mmol/L Normal 98-107 [facility] Comment on above: Performed By: #### O SMO, LD, MG, JESUS, TSHX, LIVP, B12FOL, LACTIC, FT4, BMP #### [employer] [address] [place] [address] [place] [phone] Envelope Folding Machine Adjuster: Tato Ibarra MD CO2 [Moles/Vol] 27 mmol/L Normal 20-31 [facility] Comment on above: Performed By: #### O SMO, LD, MG, JESUS, TSHX, LIVP, B12FOL, LACTIC, FT4, BMP #### [facility] [address] [place] [address] [phone] Envelope Folding Machine Adjuster: Tato Ibarra MD Creatinine [Mass/Vol] 0.3 mg/dL Low 0.50-0.90 [facility] Comment on above: Performed By: #### O SMO, LD, MG, JESUS, TSHX, LIVP, B12FOL, LACTIC, FT4, BMP #### [address] [phone] Envelope Folding Machine Adjuster: Tato Ibarra MD GFR/1.73 sq M.predicted among non-blacks MDRD (S/P/Bld) [Vol rate/Area] mL/min/{1.73_m2} Normal >60 [facility] Comment on above: Result Comment: These results [...] TSHX, LIVP, B12FOL, LACTIC, FT4, BMP #### [facility] [address] [place] [address] [phone] Envelope Folding Machine Adjuster: Tato Ibarra MD Glucose [Mass/Vol] 85 mg/dL Normal 74-99 [facility] Comment on above: Performed By: #### O SMO, LD, MG, JESUS, TSHX, LIVP, B12FOL, LACTIC, FT4, BMP #### [facility] [address] [place] [address] [phone] Envelope Folding Machine Adjuster: Tato Ibarra MD Potassium [Moles/Vol] 2.8 mmol/L Critically low 3.7-5.3 [facility] Comment on above: Performed By: #### O SMO, LD, MG, JESUS, TSHX, LIVP, B12FOL, LACTIC, FT4, BMP #### [facility] [place], [place] [phone] Envelope Folding Machine Adjuster: Tato Ibarra MD Sodium [Moles/Vol] 139 mmol/L Normal 136-145 [facility] Comment on above: Performed By: #### O SMO, LD, MG, JESUS, TSHX, LIVP, B12FOL, LACTIC, FT4, BMP #### [facility] [address] [place] [address] [phone] Envelope Folding Machine Adjuster: Tato Ibarra MD Urea nitrogen [Mass/Vol] 3 mg/dL Low 6-20 [facility] Comment on above: Performed By: #### O SMO, LD, MG, JESUS, TSHX, LIVP, B12FOL, LACTIC, FT4, BMP #### [facility] [address] [place] [phone] Envelope Folding Machine Adjuster: Tato Ibarra MD CBC with Auto Differentialon 01-05-2024 Basophils (Bld) [#/Vol] [facility] [employer] [facility] Basophils/100 WBC (Bld) 0 % 0 - 2 % [facility] Eosinophils (Bld) [#/Vol] 0.08 10*3/uL [facility] Eosinophils/100 WBC (Bld) 2 % 1 - 4 % [facility] Erythrocyte distribution width (RBC) [Ratio] 19.8 % High 11.8 - 14.4 % [facility] Hematocrit (Bld) [Volume fraction] 27.3 % Low 36.3 - 47.1 % [facility] Hemoglobin (Bld) [Mass/Vol] 8.5 g/dL Low 11.9 - 15.1 g/dL [facility] [employer] [facility] Immature granulocytes (Bld) [#/Vol] [facility] Immature granulocytes/100 WBC (Bld) 0 % 0 [facility] Interpretation and review of laboratory results Abnormal [facility] Lymphocytes/100 WBC (Bld) 28 % 24 - 43 % [facility] Lymphocytes/100 WBC (Bld) 1.45 % [facility] MCH (RBC) [Entitic mass] 30.5 pg 25.2 - 33.5 pg [facility] MCHC (RBC) [Mass/Vol] 31.1 g/dL 28.4 - 34.8 g/dL [facility] MCV (RBC) [Entitic vol] 97.8 fL 82.6 - 102.9 fL [facility] Monocytes/100 WBC (Bld) 10 % 3 - 12 % [facility] Monocytes/100 WBC (Bld) 0.51 % [facility] Neutrophils/100 WBC (Bld) 60 % 36 - 65 % [facility] Nucleated RBC/100 WBC (Bld) [Ratio] 0.0 % 0.0 per 100 WBC [facility] Platelet mean volume (Bld) [Entitic vol] 10.1 fL 8.1 - 13.5 fL [facility] Platelets (Bld) [#/Vol] 227 10*3/uL [facility] RBC (Bld) [#/Vol] 2.79 10*6/uL Low 3.95 - 5.11 m/uL [facility] RBC (Bld) [#/Vol] ANISOCYTOSIS PRESENT [facility] Segmented neutrophils/100 WBC (Bld) 3.15 % [facility] WBC other (Bld) [#/Vol] 5.2 [facility] CBC with Diffon 01-05-2024 Abs. Basophil <0.03 Normal 0.00-0.20 [facility] Comment on above: Performed By: #### O SMO, LD, MG, JESUS, TSHX, LIVP, B12FOL, LACTIC, FT4, BMP #### [facility] [address] [place] [address] Envelope Folding Machine Adjuster: Tato Ibarra MD Abs.Imm.Granulocyte <0.03 Normal 0.00-0.30 [facility] Comment on above: Performed By: #### O SMO, LD, MG, JESUS, TSHX, LIVP, B12FOL, LACTIC, FT4, BMP #### [address] [address] Envelope Folding Machine Adjuster: Tato Ibarra MD Abs.Neutrophil (Seg) 3.15 k/uL Normal 1.50-8.10 [facility] Comment on above: Performed By: #### O SMO, LD, MG, JESUS, TSHX, LIVP, B12FOL, LACTIC, FT4, BMP #### [address] [address] Envelope Folding Machine Adjuster: Tato Ibarra MD Basophils/100 WBC (Bld) 0 % Normal 0-2 [facility] Comment on above: Performed By: #### O SMO, LD, MG, JESUS, TSHX, LIVP, B12FOL, LACTIC, FT4, BMP #### [place] [address] Envelope Folding Machine Adjuster: Tato Ibarra MD Eosinophils (Bld) [#/Vol] 0.08 10*3/uL Normal 0.00-0.44 [facility] Comment on above: Performed By: #### O SMO, LD, MG, JESUS, TSHX, LIVP, B12FOL, LACTIC, FT4, BMP #### [address] [address] Envelope Folding Machine Adjuster: Tato Ibarra MD Eosinophils/100 WBC (Bld) 2 % Normal 1-4 [facility] Comment on above: Performed By: #### O SMO, LD, MG, JESUS, TSHX, LIVP, B12FOL, LACTIC, FT4, BMP #### [address] [address] Envelope Folding Machine Adjuster: Tato Ibarra MD Erythrocyte distribution width (RBC) [Ratio] 19.8 % High 11.8-14.4 [facility] Comment on above: Performed By: #### O SMO, LD, MG, JESUS, TSHX, LIVP, B12FOL, LACTIC, FT4, BMP #### [facility] [employer] [address] [place] [address] [phone] Envelope Folding Machine Adjuster: Tato Ibarra MD Hematocrit (Bld) [Volume fraction] 27.3 % Low 36.3-47.1 [facility] Comment on above: Performed By: #### O SMO, LD, MG, JESUS, TSHX, LIVP, B12FOL, LACTIC, FT4, BMP #### [place] [address] [employer]velope Folding Machine Adjuster: Tato Ibarra MD Hemoglobin (Bld) [Mass/Vol] 8.5 g/dL Low 11.9-15.1 [facility] Comment on above: Performed By: #### O SMO, LD, MG, JESUS, TSHX, LIVP, B12FOL, LACTIC, FT4, BMP #### [place] [address] [employer] Machine Adjuster: Tato Ibarra MD Immature granulocytes/100 WBC (Bld) 0 % Normal 0 [facility] Comment on above: Performed By: #### O SMO, LD, MG, JESUS, TSHX, LIVP, B12FOL, LACTIC, FT4, BMP #### [facility] [employer] [address] [place] [address] Envelope Folding Machine Adjuster: Tato Ibarra MD Lymphocytes (Bld) [#/Vol] 1.45 10*3/uL Normal 1.10-3.70 [facility] Comment on above: Performed By: #### O SMO, LD, MG, JESUS, TSHX, LIVP, B12FOL, LACTIC, FT4, BMP #### [facility] [employer] [address] [place] [phone] Envelope Folding Machine Adjuster: Tato Ibarra MD Lymphocytes/100 WBC (Bld) 28 % Normal 24-43 [facility] Comment on above: Performed By: #### O SMO, LD, MG, JESUS, TSHX, LIVP, B12FOL, LACTIC, FT4, BMP #### [address] [phone] [employer] Machine Adjuster: aTto Ibarra MD MCH (RBC) [Entitic mass] 30.5 pg Normal 25.2-33.5 [facility] Comment on above: Performed By: #### O SMO, LD, MG, JESUS, TSHX, LIVP, B12FOL, LACTIC, FT4, BMP #### [address] [address] Envelope Folding Machine Adjuster: Tato Ibarra MD MCHC (RBC) [Mass/Vol] 31.1 g/dL Normal 28.4-34.8 [facility] Comment on above: Performed By: #### O SMO, LD, MG, JESUS, TSHX, LIVP, B12FOL, LACTIC, FT4, BMP #### [address] [address] [employer] Machine Adjuster: Tato Ibarra MD MCV (RBC) [Entitic vol] 97.8 fL Normal 82.6-102.9 [facility] Comment on above: Performed By: #### O SMO, LD, MG, JESUS, TSHX, LIVP, B12FOL, LACTIC, FT4, BMP #### [facility] [employer] [address] [place] [phone] Envelope Folding Machine Adjuster: Tato Ibarra MD Monocytes (Bld) [#/Vol] 0.51 10*3/uL Normal 0.10-1.20 [facility] Comment on above: Performed By: #### O SMO, LD, MG, JESUS, TSHX, LIVP, B12FOL, LACTIC, FT4, BMP #### [facility] [employer] [address] [place] [address] [phone] Envelope Folding Machine Adjuster: Tato Ibarra MD Monocytes/100 WBC (Bld) 10 % Normal 3-12 [facility] Comment on above: Performed By: #### O SMO, LD, MG, JESUS, TSHX, LIVP, B12FOL, LACTIC, FT4, BMP #### [facility] [address] [place] [phone] Envelope Folding Machine Adjuster: Tato Ibarra MD Neutrophil (Seg) 60 % Normal 36-65 [facility] Comment on above: Performed By: #### O SMO, LD, MG, JESUS, TSHX, LIVP, B12FOL, LACTIC, FT4, BMP #### [address] [address] [employer] Adjuster: Tato Ibarra MD NRBC Automated 0.0 per 100 WBC Normal 0.0 [facility] Comment on above: Performed By: #### O SMO, LD, MG, JESUS, TSHX, LIVP, B12FOL, LACTIC, FT4, BMP #### [address] [address] [employer] Adjuster: Tato Ibarra MD Platelet mean volume (Bld) [Entitic vol] 10.1 fL Normal 8.1-13.5 [facility] Comment on above: Performed By: #### O SMO, LD, MG, JESUS, TSHX, LIVP, B12FOL, LACTIC, FT4, BMP #### [facility] [employer] [address] [place] [phone] En[employer] Machine Adjuster: aTto Ibarra MD Platelets (Bld) [#/Vol] 227 10*3/uL Normal 138-453 [facility] Comment on above: Performed By: #### O SMO, LD, MG, JESUS, TSHX, LIVP, B12FOL, LACTIC, FT4, BMP #### [facility] [address] [place] [id number] En[employer]olding Machine Adjuster: Tato Ibarra MD RBC (Bld) [#/Vol] 2.79 10*6/uL Low 3.95-5.11 [facility] Comment on above: Performed By: #### O SMO, LD, MG, JESUS, TSHX, LIVP, B12FOL, LACTIC, FT4, BMP #### [facility] [address] [place] [address] [phone] [employer] Machine Adjuster: Tato Ibarra MD RBC morphology finding Nom (Bld) ANISOCYTOSIS PRESENT Normal [facility] Comment on above: Performed By: #### O SMO, LD, MG, JESUS, TSHX, LIVP, B12FOL, LACTIC, FT4, BMP #### [facility] [employer] [address] [place] [address] [phone] [employer] Machine Adjuster: Tato Ibarra MD WBC (Bld) [#/Vol] 5.2 10*3/uL Normal 3.5-11.3 [facility] Comment on above: Performed By: #### O SMO, LD, MG, JESUS, TSHX, LIVP, B12FOL, LACTIC, FT4, BMP #### [facility] [employer] [address] [place] [address] [phone] [employer] Adjuster: Tato Ibarra MD Hemoglobin and Hematocriton 01-05-2024 Interpretation and review of laboratory results Abnormal [facility] Hgb/Hcton 01-05-2024 Hematocrit (Bld) [Volume fraction] 29.3 % Low 36.3-47.1 [facility] Comment on above: Performed By: #### O SMO, LD, MG, JESUS, TSHX, LIVP, B12FOL, LACTIC, FT4, BMP #### [facility] [employer] [address] [place] [address] [phone] [employer] Adjuster: Tato Ibarra MD Hemoglobin (Bld) [Mass/Vol] 9.4 g/dL Low 11.9-15.1 [facility] Comment on above: Performed By: #### O SMO, LD, MG, JESUS, TSHX, LIVP, B12FOL, LACTIC, FT4, BMP #### [employer] [facility] [address] [place], [place] [phone] Envelope Folding Machine Adjuster: Tato Ibarra MD K (Potassium)on 01-05-2024 Potassium [Moles/Vol] 3.4 mmol/L Low 3.7-5.3 [facility] Comment on above: Performed By: #### O SMO, LD, MG, JESUS, TSHX, LIVP, B12FOL, LACTIC, FT4, BMP #### [employer] [facility] [address] [place] [address] Envelope Folding Machine Adjuster: Tato Ibarra MD Potassiumon 01-05-2024 Interpretation and review of laboratory results Abnormal [facility] Potassium [Moles/Vol] 3.4 mmol/L Low 3.7 - 5.3 mmol/L [facility] Basic Metabolic Panelon 12-24 Anion gap [Moles/Vol] 10 mmol/L 9 - 16 mmol/L [facility] Calcium [Mass/Vol] 8.0 mg/dL Low 8.6 - 10.4 mg/dL [facility] Chloride [Moles/Vol] 104 mmol/L 98 - 107 mmol/L [facility] CO2 [Moles/Vol] 24 mmol/L 20 - 31 mmol/L [facility] Creatinine [Mass/Vol] 0.3 mg/dL Low 0.50 - 0.90 mg/dL [facility] Est, Glom Filt Rate - PINF [facility] Comment on above: These results are not intended for use [...] following therapy that affects renal tubular secretion. Glucose [Mass/Vol] 97 mg/dL 74 - 99 mg/dL [facility] Interpretation and review of laboratory results Abnormal [facility] Potassium [Moles/Vol] 3.1 mmol/L Low 3.7 - 5.3 mmol/L [facility] Sodium [Moles/Vol] 138 mmol/L 136 - 145 mmol/L [facility] Urea nitrogen [Mass/Vol] 3 mg/dL Low 6 - 20 mg/dL [facility] Basic Metabolic Profon 01-03 Anion gap [Moles/Vol] 10 mmol/L Normal 9-16 [facility] Comment on above: Performed By: #### O SMO, LD, MG, JESUS, TSHX, LIVP, B12FOL, LACTIC, FT4, BMP #### [facility] [employer] [address] [place] [address] [phone] [employer] Adjuster: Tato Ibarra MD Calcium [Mass/Vol] 8.0 mg/dL Low 8.6-10.4 [facility] Comment on above: Performed By: #### O SMO, LD, MG, JESUS, TSHX, LIVP, B12FOL, LACTIC, FT4, BMP #### [facility] [address] [place] [address] [phone] [employer] Adjuster: Tato Ibarra MD Chloride [Moles/Vol] 104 mmol/L Normal 98-107 [facility] Comment on above: Performed By: #### O SMO, LD, MG, JESUS, TSHX, LIVP, B12FOL, LACTIC, FT4, BMP #### [facility] [employer] [address] [place] [address] [phone] [employer] Adjuster: Tato Ibarra MD CO2 [Moles/Vol] 24 mmol/L Normal 20-31 [facility] Comment on above: Performed By: #### O SMO, LD, MG, JESUS, TSHX, LIVP, B12FOL, LACTIC, FT4, BMP #### [facility] [employer] [address] [place] [phone] [employer] Adjuster: Tato Ibarra MD Creatinine [Mass/Vol] 0.3 mg/dL Low 0.50-0.90 [facility] Comment on above: Performed By: #### O SMO, LD, MG, JESUS, TSHX, LIVP, B12FOL, LACTIC, FT4, BMP #### [address] [phone] [employer] Adjuster: Tato Ibarra MD GFR/1.73 sq M.predicted among non-blacks MDRD (S/P/Bld) [Vol rate/Area] mL/min/{1.73_m2} Normal >60 [facility] Comment on above: Result Comment: These results [...] TSHX, LIVP, B12FOL, LACTIC, FT4, BMP #### [address] [phone] [employer] Adjuster: Tato Ibarra MD Glucose [Mass/Vol] 97 mg/dL Normal 74-99 [facility] Comment on above: Performed By: #### O SMO, LD, MG, JESUS, TSHX, LIVP, B12FOL, LACTIC, FT4, BMP #### [address] [phone] [employer] Adjuster: Tato Ibarra MD Potassium [Moles/Vol] 3.1 mmol/L Low 3.7-5.3 [facility] Comment on above: Performed By: #### O SMO, LD, MG, JESUS, TSHX, LIVP, B12FOL, LACTIC, FT4, BMP #### [address] [id number] [employer] Adjuster: Tato Ibarra MD Sodium [Moles/Vol] 138 mmol/L Normal 136-145 [facility] Comment on above: Performed By: #### O SMO, LD, MG, JESUS, TSHX, LIVP, B12FOL, LACTIC, FT4, BMP #### [facility] [address], [place] [id number] [employer] Adjuster: Tato Ibarra MD Urea nitrogen [Mass/Vol] 3 mg/dL Low 6-20 [facility] Comment on above: Performed By: #### O SMO, LD, MG, JESUS, TSHX, LIVP, B12FOL, LACTIC, FT4, BMP #### [facility] [address], [place] [id number] [employer] Adjuster: Tato Ibarra MD CBC with Auto Differentialon 01-04-2024 Basophils (Bld) [#/Vol] 0.00 10*3/uL [facility] Basophils/100 WBC (Bld) 0 % 0 - 2 % [facility] Eosinophils (Bld) [#/Vol] 0.07 10*3/uL [facility] Eosinophils/100 WBC (Bld) 1 % 1 - 4 % [facility] Erythrocyte distribution width (RBC) [Ratio] 21.1 % High 11.8 - 14.4 % [facility] Hematocrit (Bld) [Volume fraction] 27.7 % Low 36.3 - 47.1 % [facility] Hemoglobin (Bld) [Mass/Vol] 8.8 g/dL Low 11.9 - 15.1 g/dL [facility] [facility] Immature granulocytes (Bld) [#/Vol] 0.07 10*3/uL [facility] Immature granulocytes/100 WBC (Bld) 1 % High 0 [facility] Interpretation and review of laboratory results Abnormal [facility] Lymphocytes/100 WBC (Bld) 16 % Low 24 - 43 % [facility] Lymphocytes/100 WBC (Bld) 1.09 % Low [facility] MCH (RBC) [Entitic mass] 31.3 pg 25.2 - 33.5 pg [facility] MCHC (RBC) [Mass/Vol] 31.8 g/dL 28.4 - 34.8 g/dL [facility] MCV (RBC) [Entitic vol] 98.6 fL 82.6 - 102.9 fL [facility] Monocytes/100 WBC (Bld) 11 % 3 - 12 % [facility] Monocytes/100 WBC (Bld) 0.75 % [facility] Morphology Ritesh (Bld) [Interp] ANISOCYTOSIS PRESENT [facility] Neutrophils/100 WBC (Bld) 71 % High 36 - 65 % [facility] Nucleated RBC/100 WBC (Bld) [Ratio] 0.0 % 0.0 per 100 WBC [facility] Platelet mean volume (Bld) [Entitic vol] 9.4 fL 8.1 - 13.5 fL [facility] Platelets (Bld) [#/Vol] 234 10*3/uL [facility] RBC (Bld) [#/Vol] 2.81 10*6/uL Low 3.95 - 5.11 m/uL [facility] Segmented neutrophils/100 WBC (Bld) 4.82 % [facility] WBC other (Bld) [#/Vol] 6.8 [facility] CBC with Diffon 01-04-2024 Abs. Basophil 0.00 k/uL Normal 0.00-0.20 [facility] Comment on above: Performed By: #### O SMO, LD, MG, JESUS, TSHX, LIVP, B12FOL, LACTIC, FT4, BMP #### [facility] [address] [place], [place] [id number] [employer] Machine Adjuster: Tato Ibarra MD Abs.Imm.Granulocyte 0.07 k/uL Normal 0.00-0.30 [facility] Comment on above: Performed By: #### O SMO, LD, MG, JESUS, TSHX, LIVP, B12FOL, LACTIC, FT4, BMP #### [facility] [employer] [address] [place] [address] [phone] [employer] Machine Adjuster: Tato Ibarra MD Abs.Neutrophil (Seg) 4.82 k/uL Normal 1.50-8.10 [facility] Comment on above: Performed By: #### O SMO, LD, MG, JESUS, TSHX, LIVP, B12FOL, LACTIC, FT4, BMP #### [address] [phone] [employer] Adjuster: Tato Ibarra MD Basophils/100 WBC (Bld) 0 % Normal 0-2 [facility] Comment on above: Performed By: #### O SMO, LD, MG, JESUS, TSHX, LIVP, B12FOL, LACTIC, FT4, BMP #### [address] [phone] [employer] Adjuster: Tato Ibarra MD Eosinophils (Bld) [#/Vol] 0.07 10*3/uL Normal 0.00-0.44 [facility] Comment on above: Performed By: #### O SMO, LD, MG, JESUS, TSHX, LIVP, B12FOL, LACTIC, FT4, BMP #### [address] [phone] [employer] Adjuster: Tato Ibarra MD Eosinophils/100 WBC (Bld) 1 % Normal 1-4 [facility] Comment on above: Performed By: #### O SMO, LD, MG, JESUS, TSHX, LIVP, B12FOL, LACTIC, FT4, BMP #### [address] [address] [employer] Adjuster: Tato Ibarra MD Immature granulocytes/100 WBC (Bld) 1 % High 0 [facility] Comment on above: Performed By: #### O SMO, LD, MG, JESUS, TSHX, LIVP, B12FOL, LACTIC, FT4, BMP #### [address] [id number] [employer] Adjuster: Tato Ibarra MD Lymphocytes (Bld) [#/Vol] 1.09 10*3/uL Low 1.10-3.70 [facility] Comment on above: Performed By: #### O SMO, LD, MG, JESUS, TSHX, LIVP, B12FOL, LACTIC, FT4, BMP #### [address] [address] [employer] Adjuster: Tato Ibarra MD Lymphocytes/100 WBC (Bld) 16 % Low 24-43 [facility] Comment on above: Performed By: #### O SMO, LD, MG, JESUS, TSHX, LIVP, B12FOL, LACTIC, FT4, BMP #### [address] [address] [employer] Adjuster: Tato Ibarra MD Monocytes (Bld) [#/Vol] 0.75 10*3/uL Normal 0.10-1.20 [facility] Comment on above: Performed By: #### O SMO, LD, MG, JESUS, TSHX, LIVP, B12FOL, LACTIC, FT4, BMP #### [address] [address] [employer] Adjuster: Tato Ibarra MD Monocytes/100 WBC (Bld) 11 % Normal 3-12 [facility] Comment on above: Performed By: #### O SMO, LD, MG, JESUS, TSHX, LIVP, B12FOL, LACTIC, FT4, BMP #### [address] [address] [employer] Adjuster: Tato Ibarra MD Morphology Ritesh (Bld) [Interp] ANISOCYTOSIS PRESENT Normal [facility] Comment on above: Performed By: #### O SMO, LD, MG, JESUS, TSHX, LIVP, B12FOL, LACTIC, FT4, BMP #### [address] [address] [employer] Adjuster: Tato Ibarra MD Neutrophil (Seg) 71 % High 36-65 [facility] Comment on above: Performed By: #### O SMO, LD, MG, JESUS, TSHX, LIVP, B12FOL, LACTIC, FT4, BMP #### [address] [phone] [employer] Adjuster: Tato Ibarra MD Erythrocyte distribution width (RBC) [Ratio] 21.1 % High 11.8-14.4 [facility] Comment on above: Performed By: #### O SMO, LD, MG, JESUS, TSHX, LIVP, B12FOL, LACTIC, FT4, BMP #### [address] [phone] [employer] Adjuster: Tato Ibarra MD Hematocrit (Bld) [Volume fraction] 27.7 % Low 36.3-47.1 [facility] Comment on above: Performed By: #### O SMO, LD, MG, JESUS, TSHX, LIVP, B12FOL, LACTIC, FT4, BMP #### [address] [phone] [employer] Adjuster: Tato Ibarra MD Hemoglobin (Bld) [Mass/Vol] 8.8 g/dL Low 11.9-15.1 [facility] Comment on above: Performed By: #### O SMO, LD, MG, JESUS, TSHX, LIVP, B12FOL, LACTIC, FT4, BMP #### [address] [phone] [employer] Adjuster: Tato Ibarra MD MCH (RBC) [Entitic mass] 31.3 pg Normal 25.2-33.5 [facility] Comment on above: Performed By: #### O SMO, LD, MG, JESUS, TSHX, LIVP, B12FOL, LACTIC, FT4, BMP #### [facility] [employer] [address] [place] [address] [phone] En[employer] Machine Adjuster: Tato Ibarra MD MCHC (RBC) [Mass/Vol] 31.8 g/dL Normal 28.4-34.8 [facility] Comment on above: Performed By: #### O SMO, LD, MG, JESUS, TSHX, LIVP, B12FOL, LACTIC, FT4, BMP #### [address] [address] [employer] Adjuster: Tato Ibarra MD MCV (RBC) [Entitic vol] 98.6 fL Normal 82.6-102.9 [facility] Comment on above: Performed By: #### O SMO, LD, MG, JESUS, TSHX, LIVP, B12FOL, LACTIC, FT4, BMP #### [facility] [employer] [address] [place] [phone] [employer] Adjuster: Tato Ibarra MD NRBC Automated 0.0 per 100 WBC Normal 0.0 [facility] Comment on above: Performed By: #### O SMO, LD, MG, JESUS, TSHX, LIVP, B12FOL, LACTIC, FT4, BMP #### [address] [address] [employer] Adjuster: Tato Ibarra MD Platelet mean volume (Bld) [Entitic vol] 9.4 fL Normal 8.1-13.5 [facility] Comment on above: Performed By: #### O SMO, LD, MG, JESUS, TSHX, LIVP, B12FOL, LACTIC, FT4, BMP #### [address] [address] [employer] Adjuster: Tato Ibarra MD Platelets (Bld) [#/Vol] 234 10*3/uL Normal 138-453 [facility] Comment on above: Performed By: #### O SMO, LD, MG, JESUS, TSHX, LIVP, B12FOL, LACTIC, FT4, BMP #### [facility] [employer] [address] [place] [phone] En[employer] Machine Adjuster: Tato Ibarra MD RBC (Bld) [#/Vol] 2.81 10*6/uL Low 3.95-5.11 [facility] Comment on above: Performed By: #### O SMO, LD, MG, JESUS, TSHX, LIVP, B12FOL, LACTIC, FT4, BMP #### [facility] [address] [place] [address] [phone] Envelope Folding Machine Adjuster: Tato Ibarra MD WBC (Bld) [#/Vol] 6.8 10*3/uL Normal 3.5-11.3 [facility] Comment on above: Performed By: #### O SMO, LD, MG, JESUS, TSHX, LIVP, B12FOL, LACTIC, FT4, BMP #### [employer] [facility] [address] [place] [address] [phone] [employer] Machine Adjuster: Tato Ibarra MD Hemoglobin and Hematocriton 01-04-2024 Hematocrit (Bld) [Volume fraction] 27.8 % Low 36.3 - 47.1 % [facility] Hemoglobin (Bld) [Mass/Vol] 8.9 g/dL Low 11.9 - 15.1 g/dL [facility] Interpretation and review of laboratory results Abnormal [facility] Hgb/Hcton 01-04-2024 Hematocrit (Bld) [Volume fraction] 27.8 % Low 36.3-47.1 [facility] Comment on above: Performed By: #### O SMO, LD, MG, JESUS, TSHX, LIVP, B12FOL, LACTIC, FT4, BMP #### [employer] [address] [place] [address] [phone] Envelope Folding Machine Adjuster: Tato Ibarra MD Hemoglobin (Bld) [Mass/Vol] 8.9 g/dL Low 11.9-15.1 [facility] Comment on above: Performed By: #### O SMO, LD, MG, JESUS, TSHX, LIVP, B12FOL, LACTIC, FT4, BMP #### [employer] [address] [place] [address] [phone] [employer] Machine Adjuster: Tato Ibarra MD Basic Metab w/rfx MGon 01-02 Anion gap [Moles/Vol] 10 mmol/L Normal 9-16 [facility] Comment on above: Performed By: #### P TT, PT #### [address] [address] [employer] Adjuster: Tato Ibarra MD Calcium [Mass/Vol] 8.2 mg/dL Low 8.6-10.4 [facility] Comment on above: Performed By: #### P TT, PT #### [address] [address] [employer] Adjuster: Tato Ibarra MD Chloride [Moles/Vol] 106 mmol/L Normal 98-107 [facility] Comment on above: Performed By: #### P TT, PT #### [address] [address] [employer] Adjuster: Tato Ibarra MD CO2 [Moles/Vol] 24 mmol/L Normal 20-31 [facility] Comment on above: Performed By: #### P TT, PT #### [address] [address] [employer] Adjuster: Tato Ibarra MD Creatinine [Mass/Vol] 0.3 mg/dL Low 0.50-0.90 [facility] Comment on above: Performed By: #### P TT, PT #### [address] [address] [employer] Adjuster: Tato Ibarra MD GFR/1.73 sq M.predicted among non-blacks MDRD (S/P/Bld) [Vol rate/Area] mL/min/{1.73_m2} Normal >60 [facility] Comment on above: Result Comment: These results [...] Performed By: #### P TT, PT #### [facility] [address] [place] [phone] [employer] Machine Adjuster: Tato Ibarra MD Glucose [Mass/Vol] 95 mg/dL Normal 74-99 [facility] Comment on above: Performed By: #### P TT, PT #### [facility] [address] [place] [address] [employer] Adjuster: Tato Ibarra MD Potassium [Moles/Vol] 3.4 mmol/L Low 3.7-5.3 [facility] Comment on above: Performed By: #### P TT, PT #### [employer] [address] [place] [phone] En[employer] Machine Adjuster: Tato Ibarra MD Sodium [Moles/Vol] 140 mmol/L Normal 136-145 [facility] Comment on above: Performed By: #### P TT, PT #### [employer] [address] [place] [address] [employer] Adjuster: Tato Ibarra MD Urea nitrogen [Mass/Vol] 3 mg/dL Low 6-20 [facility] Comment on above: Performed By: #### P TT, PT #### [facility] [address] [place] [phone] [employer] Adjuster: Tato Ibarra MD Basic Metabolic Panel w/ Ref jacinto to MGon 01-03-2024 Anion gap [Moles/Vol] 10 mmol/L 9 - 16 mmol/L [facility] Calcium [Mass/Vol] 8.2 mg/dL Low 8.6 - 10.4 mg/dL [facility] Chloride [Moles/Vol] 106 mmol/L 98 - 107 mmol/L [facility] CO2 [Moles/Vol] 24 mmol/L 20 - 31 mmol/L [facility] Creatinine [Mass/Vol] 0.3 mg/dL Low 0.50 - 0.90 mg/dL [facility] [employer] - [facility] Comment on above: These results are not intended for use [...] following therapy that affects renal tubular secretion. Glucose [Mass/Vol] 95 mg/dL 74 - 99 mg/dL [facility] Interpretation and review of laboratory results Abnormal [facility] Potassium [Moles/Vol] 3.4 mmol/L Low 3.7 - 5.3 mmol/L [facility] Sodium [Moles/Vol] 140 mmol/L 136 - 145 mmol/L [facility] Urea nitrogen [Mass/Vol] 3 mg/dL Low 6 - 20 mg/dL [facility] CBCon 01-03-2024 Erythrocyte distribution width (RBC) [Ratio] 22.1 % High 11.8 - 14.4 % [facility] Hematocrit (Bld) [Volume fraction] 26.2 % Low 36.3 - 47.1 % [facility] Hemoglobin (Bld) [Mass/Vol] 9.0 g/dL Low 11.9 - 15.1 g/dL [facility] Interpretation and review of laboratory results Abnormal [facility] MCH (RBC) [Entitic mass] 31.9 pg 25.2 - 33.5 pg [facility] MCHC (RBC) [Mass/Vol] 34.4 g/dL 28.4 - 34.8 g/dL [facility] MCV (RBC) [Entitic vol] 92.9 fL 82.6 - 102.9 fL [facility] Nucleated RBC/100 WBC (Bld) [Ratio] 0.0 % 0.0 per 100 WBC [facility] Platelet mean volume (Bld) [Entitic vol] 9.6 fL 8.1 - 13.5 fL [facility] Platelets (Bld) [#/Vol] 219 10*3/uL [facility] RBC (Bld) [#/Vol] 2.82 10*6/uL Low 3.95 - 5.11 m/uL [facility] WBC other (Bld) [#/Vol] 8.4 [facility] Erythrocyte distribution width (RBC) [Ratio] 22.1 % High 11.8-14.4 [facility] Comment on above: Performed By: #### O SMO, LD, MG, JESUS, TSHX, LIVP, B12FOL, LACTIC, FT4, BMP #### [employer] [address] [place] [address] [phone] [employer] Machine Adjuster: Tato Ibarra MD Hematocrit (Bld) [Volume fraction] 26.2 % Low 36.3-47.1 [facility] Comment on above: Performed By: #### O SMO, LD, MG, JESUS, TSHX, LIVP, B12FOL, LACTIC, FT4, BMP #### [facility] [address] [place] [address] [phone] [employer] Machine Adjuster: Tato Ibarra MD Hemoglobin (Bld) [Mass/Vol] 9.0 g/dL Low 11.9-15.1 [facility] Comment on above: Performed By: #### O SMO, LD, MG, JESUS, TSHX, LIVP, B12FOL, LACTIC, FT4, BMP #### [employer] [address] [place] [address] [phone] En[employer] Machine Adjuster: Tato Ibarra MD MCH (RBC) [Entitic mass] 31.9 pg Normal 25.2-33.5 [facility] Comment on above: Performed By: #### O SMO, LD, MG, JESUS, TSHX, LIVP, B12FOL, LACTIC, FT4, BMP #### [employer] [facility] [address] [place] [address] [phone] [employer] Machine Adjuster: Tato Ibarra MD MCHC (RBC) [Mass/Vol] 34.4 g/dL Normal 28.4-34.8 [facility] Comment on above: Performed By: #### O SMO, LD, MG, JESUS, TSHX, LIVP, B12FOL, LACTIC, FT4, BMP #### [address] [phone] [employer] Adjuster: Tato Ibarra MD MCV (RBC) [Entitic vol] 92.9 fL Normal 82.6-102.9 [facility] Comment on above: Performed By: #### O SMO, LD, MG, JESUS, TSHX, LIVP, B12FOL, LACTIC, FT4, BMP #### [address] [phone] [employer] Adjuster: Tato Ibarra MD NRBC Automated 0.0 per 100 WBC Normal 0.0 [facility] Comment on above: Performed By: #### O SMO, LD, MG, JESUS, TSHX, LIVP, B12FOL, LACTIC, FT4, BMP #### [address] [address] [employer] Adjuster: Tato Ibarra MD Platelet mean volume (Bld) [Entitic vol] 9.6 fL Normal 8.1-13.5 [facility] Comment on above: Performed By: #### O SMO, LD, MG, JESUS, TSHX, LIVP, B12FOL, LACTIC, FT4, BMP #### [address] [address] [employer] Adjuster: Tato Ibarra MD Platelets (Bld) [#/Vol] 219 10*3/uL Normal 138-453 [facility] Comment on above: Performed By: #### O SMO, LD, MG, JESUS, TSHX, LIVP, B12FOL, LACTIC, FT4, BMP #### [address] [address] [employer] Adjuster: Tato Ibarra MD RBC (Bld) [#/Vol] 2.82 10*6/uL Low 3.95-5.11 [facility] Comment on above: Performed By: #### O SMO, LD, MG, JESUS, TSHX, LIVP, B12FOL, LACTIC, FT4, BMP #### [employer] [facility] [address] [place] [address] [employer] Machine Adjuster: Tato Ibarra MD WBC (Bld) [#/Vol] 8.4 10*3/uL Normal 3.5-11.3 [facility] Comment on above: Performed By: #### O SMO, LD, MG, JESUS, TSHX, LIVP, B12FOL, LACTIC, FT4, BMP #### [employer] [facility] [address] [place] [address] [employer] F[employer] Machine Adjuster: Tato Ibarra MD CBC with Auto Differentialon 01-03-2024 Basophils (Bld) [#/Vol] 0.00 10*3/uL [facility] [employer] Basophils/100 WBC (Bld) 0 % 0 - 2 % [facility] Eosinophils (Bld) [#/Vol] 0.00 10*3/uL [facility] Eosinophils/100 WBC (Bld) 0 % Low 1 - 4 % [facility] Erythrocyte distribution width (RBC) [Ratio] 21.8 % High 11.8 - 14.4 % [facility] Hematocrit (Bld) [Volume fraction] 25.5 % Low 36.3 - 47.1 % [facility] Hemoglobin (Bld) [Mass/Vol] 8.6 g/dL Low 11.9 - 15.1 g/dL [facility] Immature granulocytes (Bld) [#/Vol] 0.00 10*3/uL [facility] Immature granulocytes/100 WBC (Bld) 0 % 0 [facility] Interpretation and review of laboratory results Abnormal [facility] Lymphocytes/100 WBC (Bld) 17 % Low 24 - 43 % [facility] Lymphocytes/100 WBC (Bld) 1.24 % [facility] MCH (RBC) [Entitic mass] 31.6 pg 25.2 - 33.[address] [address] MCHC (RBC) [Mass/Vol] 33.7 g/dL 28.4 - 34.8 g/dL [facility] MCV (RBC) [Entitic vol] 93.8 fL 82.6 - 102.9 fL [facility] Monocytes/100 WBC (Bld) 9 % 3 - 12 % [facility] Monocytes/100 WBC (Bld) 0.66 % [facility] Boundary Morphology Ritesh (Bld) [Interp] ANISOCYTOSIS PRESENT [facility] Neutrophils/100 WBC (Bld) 74 % High 36 - 65 % [facility] Nucleated RBC/100 WBC (Bld) [Ratio] 0.0 % 0.0 per 100 WBC [facility] Platelet mean volume (Bld) [Entitic vol] 9.7 fL 8.1 - 13.5 fL [facility] Platelets (Bld) [#/Vol] 220 10*3/uL [facility] RBC (Bld) [#/Vol] 2.72 10*6/uL Low 3.95 - 5.11 m/uL [facility] Segmented neutrophils/100 WBC (Bld) 5.40 % [facility] WBC other (Bld) [#/Vol] 7.3 [facility] CBC with Diffon 01-03-2024 Abs. Basophil 0.00 k/uL Normal 0.00-0.20 [facility] Comment on above: Performed By: #### P TT, PT #### [employer] [address] [place], [place] [phone] [employer] Machine Adjuster: Tato Ibarra MD Abs.Imm.Granulocyte 0.00 k/uL Normal 0.00-0.30 [facility] Comment on above: Performed By: #### P TT, PT #### [employer] [address] [place], [place] [phone] [employer] Adjuster: Tato Ibarra MD Abs.Neutrophil (Seg) 5.40 k/uL Normal 1.50-8.10 [facility] Comment on above: Performed By: #### P TT, PT #### [address] [address] [employer] Adjuster: Tato Ibarra MD Basophils/100 WBC (Bld) 0 % Normal 0-2 [facility] Comment on above: Performed By: #### P TT, PT #### [address] [address] [employer] Adjuster: Tato Ibarra MD Eosinophils (Bld) [#/Vol] 0.00 10*3/uL Normal 0.00-0.44 [facility] Comment on above: Performed By: #### P TT, PT #### [address] [address] [employer] Adjuster: Tato Ibarra MD Eosinophils/100 WBC (Bld) 0 % Low 1-4 [facility] Comment on above: Performed By: #### P TT, PT #### [address] [address] [employer] Adjuster: Tato Ibarra MD Immature granulocytes/100 WBC (Bld) 0 % Normal 0 [facility] Comment on above: Performed By: #### P TT, PT #### [address] [address] [employer] Adjuster: Tato Ibarra MD Lymphocytes (Bld) [#/Vol] 1.24 10*3/uL Normal 1.10-3.70 [facility] Comment on above: Performed By: #### P TT, PT #### [address] [address] [employer] Adjuster: Tato Ibarra MD Lymphocytes/100 WBC (Bld) 17 % Low 24-43 [facility] Comment on above: Performed By: #### P TT, PT #### [address] [address] [employer] Adjuster: Tato Ibarra MD Monocytes (Bld) [#/Vol] 0.66 10*3/uL Normal 0.10-1.20 [facility] Comment on above: Performed By: #### P TT, PT #### [address] [address] [employer] Adjuster: Tato Ibarra MD Monocytes/100 WBC (Bld) 9 % Normal 3-12 [facility] Comment on above: Performed By: #### P TT, PT #### [address] [address] [employer] Adjuster: Tato Ibarra MD Morphology Ritesh (Bld) [Interp] ANISOCYTOSIS PRESENT Normal [facility] Comment on above: Performed By: #### P TT, PT #### [address] [address] [employer] Adjuster: Tato Ibarra MD Neutrophil (Seg) 74 % High 36-65 [facility] Comment on above: Performed By: #### P TT, PT #### [address] [address] [employer] Adjuster: Tato Ibarra MD Erythrocyte distribution width (RBC) [Ratio] 21.8 % High 11.8-14.4 [facility] Comment on above: Performed By: #### P TT, PT #### [address] [address] [employer] Adjuster: Tato Ibarra MD Hematocrit (Bld) [Volume fraction] 25.5 % Low 36.3-47.1 [facility] Comment on above: Performed By: #### P TT, PT #### [address] [address] [employer] Adjuster: Tato Ibarra MD Hemoglobin (Bld) [Mass/Vol] 8.6 g/dL Low 11.9-15.1 [facility] Comment on above: Performed By: #### P TT, PT #### [address] [address] [employer] Adjuster: Tato Ibarra MD MCH (RBC) [Entitic mass] 31.6 pg Normal 25.2-33.5 [facility] Comment on above: Performed By: #### P TT, PT #### [address] [address] [employer] Adjuster: Tato Ibarra MD MCHC (RBC) [Mass/Vol] 33.7 g/dL Normal 28.4-34.8 [facility] Comment on above: Performed By: #### P TT, PT #### [address] [address] [employer] Adjuster: Tato Ibarra MD MCV (RBC) [Entitic vol] 93.8 fL Normal 82.6-102.9 [facility] Comment on above: Performed By: #### P TT, PT #### [address] [address] [employer] Adjuster: Tato Ibarra MD NRBC Automated 0.0 per 100 WBC Normal 0.0 [facility] Comment on above: Performed By: #### P TT, PT #### [address] [address] Envelope Folding Machine Adjuster: Tato Ibarra MD Platelet mean volume (Bld) [Entitic vol] 9.7 fL Normal 8.1-13.5 [facility] Comment on above: Performed By: #### P TT, PT #### [address] [address] Envelope Folding Machine Adjuster: Tato Ibarra MD Platelets (Bld) [#/Vol] 220 10*3/uL Normal 138-453 [facility] Comment on above: Performed By: #### P TT, PT #### [address] [id number] [employer] Machine Adjuster: Tato Ibarra MD RBC (Bld) [#/Vol] 2.72 10*6/uL Low 3.95-5.11 [facility] Comment on above: Performed By: #### P TT, PT #### [facility] [address], [place] [id number] Envelope Folding Machine Adjuster: Tato Ibarra MD WBC (Bld) [#/Vol] 7.3 10*3/uL Normal 3.5-11.3 [facility] Comment on above: Performed By: #### P TT, PT #### [facility] [address], [place] [id number] Envelope Folding Machine Adjuster: Tato Ibarra MD EKG 12 Leadon 01-03-2024 Atrial Rate 94 BPM [facility] P [place] 14 degrees [facility] P-R Interval 162 ms [facility] Q-T Interval 350 ms [facility] QRS Duration 86 ms [facility] QTc Calculation (Bazett) 437 ms [facility] R [place] 25 degrees [facility] T [place] -97 degrees [facility] Ventricular Rate 94 BPM [facility] Normal sinus rhythm T wave abnormality, consider anterior ischemia Abnormal ECG When compared with ECG of 01-JAN-2024 18:15, No significant change was found [facility] Omar Bush MD - 01/03/2024 Normal sinus rhythm T wave abnormality, consider anterior ischemia Abnormal ECG When compared with ECG of 01-JAN-2024 18:15, No significant change was found [facility] Hemoglobin and Hematocriton 01-03-2024 Hematocrit (Bld) [Volume fraction] 28.3 % Low 36.3 - 47.1 % [facility] Hemoglobin (Bld) [Mass/Vol] 9.3 g/dL Low 11.9 - 15.1 g/dL [facility] Interpretation and review of laboratory results Abnormal [facility] Hematocrit (Bld) [Volume fraction] 27.3 % Low 36.3 - 47.1 % [facility] Hemoglobin (Bld) [Mass/Vol] 9.1 g/dL Low 11.9 - 15.1 g/dL [facility] Interpretation and review of laboratory results Abnormal [facility] Hgb/Hcton 01-03-2024 Hematocrit (Bld) [Volume fraction] 28.3 % Low 36.3-47.1 [facility] Comment on above: Performed By: #### O SMO, LD, MG, JESUS, TSHX, LIVP, B12FOL, LACTIC, FT4, BMP #### [facility] [address] [place] [phone] En[employer] Folding Machine Adjuster: Tato Ibarra MD Hemoglobin (Bld) [Mass/Vol] 9.3 g/dL Low 11.9-15.1 [facility] Comment on above: Performed By: #### O SMO, LD, MG, JESUS, TSHX, LIVP, B12FOL, LACTIC, FT4, BMP #### [employer] [address] [place] [address] [phone] Envelope F[employer] Machine Adjuster: Tato Ibarra MD Hematocrit (Bld) [Volume fraction] 27.3 % Low 36.3-47.1 [facility] Comment on above: Performed By: #### P TT, PT #### [facility] [address] [place] [address] [phone] En[employer] Machine Adjuster: Tato Ibarra MD Hemoglobin (Bld) [Mass/Vol] 9.1 g/dL Low 11.9-15.1 [facility] Comment on above: Performed By: #### P TT, PT #### [facility] [address] [place] [address] [phone] En[employer] Machine Adjuster: Tato Ibarra MD K (Potassium)on 01-03-2024 Potassium [Moles/Vol] 3.1 mmol/L Low 3.7-5.3 [facility] Comment on above: Performed By: #### O SMO, LD, MG, JESUS, TSHX, LIVP, B12FOL, LACTIC, FT4, BMP #### [facility] [employer] [address] [place] [address] [phone] En[employer] Machine Adjuster: Tato Ibarra MD Magnesiumon 01-03-2024 Magnesium [Mass/Vol] 1.8 mg/dL 1.6 - 2.6 mg/dL [facility] Magnesium [Mass/Vol] 1.8 mg/dL Normal 1.6-2.6 [facility] Comment on above: Performed By: #### P TT, PT #### [facility] [employer] [address] [place], [place] [phone] [employer] Machine Adjuster: Tato Ibarra MD Potassiumon 01-03-2024 Interpretation and review of laboratory results Abnormal [facility] Potassium [Moles/Vol] 3.1 mmol/L Low 3.7 - 5.3 mmol/L [facility] Basic Metab w/rfx MGon 01-01 Anion gap [Moles/Vol] 9 mmol/L Normal 9-16 [facility] Comment on above: Performed By: #### O SMO, LD, MG, JESUS, TSHX, LIVP, B12FOL, LACTIC, FT4, BMP #### [facility] [employer] [address] [place] [address] [phone] En[employer] Machine Adjuster: Tato Ibarra MD Calcium [Mass/Vol] 7.8 mg/dL Low 8.6-10.4 [facility] Comment on above: Performed By: #### O SMO, LD, MG, JESUS, TSHX, LIVP, B12FOL, LACTIC, FT4, BMP #### [facility] [employer] [address] [place] [address] [phone] En[employer] Machine Adjuster: Tato Ibarra MD Chloride [Moles/Vol] 110 mmol/L High 98-107 [facility] Comment on above: Performed By: #### O SMO, LD, MG, JESUS, TSHX, LIVP, B12FOL, LACTIC, FT4, BMP #### [address] [phone] [employer] Machine Adjuster: Tato Ibarra MD CO2 [Moles/Vol] 22 mmol/L Normal 20-31 [facility] Comment on above: Performed By: #### O SMO, LD, MG, JESUS, TSHX, LIVP, B12FOL, LACTIC, FT4, BMP #### [address] [phone] [employer] Adjuster: Tato Ibarra MD Creatinine [Mass/Vol] 0.3 mg/dL Low 0.50-0.90 [facility] Comment on above: Performed By: #### O SMO, LD, MG, JESUS, TSHX, LIVP, B12FOL, LACTIC, FT4, BMP #### [address] [phone] [employer] Adjuster: Tato Ibarra MD GFR/1.73 sq M.predicted among non-blacks MDRD (S/P/Bld) [Vol rate/Area] mL/min/{1.73_m2} Normal >60 [facility] Comment on above: Result Comment: These results [...] TSHX, LIVP, B12FOL, LACTIC, FT4, BMP #### [address] [phone] En[employer] Machine Adjuster: Tato Ibarra MD Glucose [Mass/Vol] 105 mg/dL High 74-99 [facility] Comment on above: Performed By: #### O SMO, LD, MG, JESUS, TSHX, LIVP, B12FOL, LACTIC, FT4, BMP #### [facility] [address] [place] [address] [phone] Envelope Folding Machine Adjuster: Tato Ibarra MD Potassium [Moles/Vol] 3.0 mmol/L Low 3.7-5.3 [facility] Comment on above: Performed By: #### O SMO, LD, MG, JESUS, TSHX, LIVP, B12FOL, LACTIC, FT4, BMP #### [facility] [address] [place] [address] [phone] Envelope Folding Machine Adjuster: Tato Ibarra MD Sodium [Moles/Vol] 141 mmol/L Normal 136-145 [facility] Comment on above: Performed By: #### O SMO, LD, MG, JESUS, TSHX, LIVP, B12FOL, LACTIC, FT4, BMP #### [facility] [address] [place] [address] [phone] Envelope Folding Machine Adjuster: Tato Ibarra MD Urea nitrogen [Mass/Vol] 8 mg/dL Normal 6-20 [facility] Comment on above: Performed By: #### O SMO, LD, MG, JESUS, TSHX, LIVP, B12FOL, LACTIC, FT4, BMP #### [facility] [address] [place] [address] [phone] Envelope F[employer] Machine Adjuster: Tato Ibarra MD Basic Metabolic Panel w/ Ref jacinto to MGon 01-02-2024 Anion gap [Moles/Vol] 9 mmol/L 9 - 16 mmol/L [facility] Calcium [Mass/Vol] 7.8 mg/dL Low 8.6 - 10.4 mg/dL [facility] Chloride [Moles/Vol] 110 mmol/L High 98 - 107 mmol/L [facility] CO2 [Moles/Vol] 22 mmol/L 20 - 31 mmol/L [facility] Creatinine [Mass/Vol] 0.3 mg/dL Low 0.50 - 0.90 mg/dL [facility] Est, Glom Filt Rate - PINF [facility] Comment on above: These results are not intended for use [...] following therapy that affects renal tubular secretion. Glucose [Mass/Vol] 105 mg/dL High 74 - 99 mg/dL [facility] Interpretation and review of laboratory results Abnormal [facility] Potassium [Moles/Vol] 3.0 mmol/L Low 3.7 - 5.3 mmol/L [facility] Sodium [Moles/Vol] 141 mmol/L 136 - 145 mmol/L [facility] Urea nitrogen [Mass/Vol] 8 mg/dL 6 - 20 mg/dL [facility] CBC with Auto Differentialon 01-02-2024 Basophils (Bld) [#/Vol] 0.00 10*3/uL [facility] Erythrocyte distribution width (RBC) [Ratio] 23.0 % High 11.8 - 14.4 % [facility] Hematocrit (Bld) [Volume fraction] 24.8 % Low 36.3 - 47.1 % [facility] Hemoglobin (Bld) [Mass/Vol] 8.4 g/dL Low 11.9 - 15.1 g/dL [facility] Immature granulocytes (Bld) [#/Vol] 0.00 10*3/uL [facility] Interpretation and review of laboratory results Abnormal [facility] Lymphocytes/100 WBC (Bld) 1.50 % [facility] MCH (RBC) [Entitic mass] 31.1 pg 25.2 - 33.5 pg [facility] MCHC (RBC) [Mass/Vol] 33.9 g/dL 28.4 - 34.8 g/dL [facility] MCV (RBC) [Entitic vol] 91.9 fL 82.6 - 102.9 fL [facility] Monocytes/100 WBC (Bld) 0.82 % [facility] Morphology Ritesh (Bld) [Interp] HYPOCHROMIA PRESENT [facility] Neutrophils/100 WBC (Bld) 66 % High 36 - 65 % [facility] Nucleated RBC/100 WBC (Bld) [Ratio] 0.0 % 0.0 per 100 WBC [facility] Platelet mean volume (Bld) [Entitic vol] 9.3 fL 8.1 - 13.5 fL [facility] Platelets (Bld) [#/Vol] 207 10*3/uL [facility] RBC (Bld) [#/Vol] 2.70 10*6/uL Low 3.95 - 5.11 m/uL [facility] Segmented neutrophils/100 WBC (Bld) 4.48 % [facility] WBC other (Bld) [#/Vol] 6.8 [facility] Basophils (Bld) [#/Vol] 0.00 10*3/uL [facility] Basophils/100 WBC (Bld) 0 % 0 - 2 % [facility] Eosinophils (Bld) [#/Vol] 0.00 10*3/uL [facility] Eosinophils/100 WBC (Bld) 0 % Low 1 - 4 % [facility] Erythrocyte distribution width (RBC) [Ratio] 22.9 % High 11.8 - 14.4 % [facility] Hematocrit (Bld) [Volume fraction] 25.7 % Low 36.3 - 47.1 % [facility] Hemoglobin (Bld) [Mass/Vol] 8.8 g/dL Low 11.9 - 15.1 g/dL [facility] Immature granulocytes (Bld) [#/Vol] 0.00 10*3/uL [facility] Immature granulocytes/100 WBC (Bld) 0 % 0 [facility] Interpretation and review of laboratory results Abnormal [facility] Lymphocytes/100 WBC (Bld) 22 % Low 24 - 43 % [facility] Lymphocytes/100 WBC (Bld) 1.52 % [facility] MCH (RBC) [Entitic mass] 31.5 pg 25.2 - 33.5 pg [facility] MCHC (RBC) [Mass/Vol] 34.2 g/dL 28.4 - 34.8 g/dL [facility] MCV (RBC) [Entitic vol] 92.1 fL 82.6 - 102.9 fL [facility] Monocytes/100 WBC (Bld) 9 % 3 - 12 % [facility] Monocytes/100 WBC (Bld) 0.62 % [facility] Morphology Ritesh (Bld) [Interp] ANISOCYTOSIS PRESENT [facility] Morphology Ritesh (Bld) [Interp] HYPOCHROMIA PRESENT [facility] Neutrophils/100 WBC (Bld) 69 % High 36 - 65 % [facility] Nucleated RBC/100 WBC (Bld) [Ratio] 0.0 % 0.0 per 100 WBC [facility] Platelet mean volume (Bld) [Entitic vol] 9.2 fL 8.1 - 13.5 fL [facility] Platelets (Bld) [#/Vol] 215 10*3/uL [facility] RBC (Bld) [#/Vol] 2.79 10*6/uL Low 3.95 - 5.11 m/uL [facility] Segmented neutrophils/100 WBC (Bld) 4.76 % [facility] WBC other (Bld) [#/Vol] 6.9 [facility] CBC with Diffon 01-02-2024 Basophils/100 WBC (Bld) 0 % Normal 0-2 [facility] Comment on above: Performed By: #### O SMO, LD, MG, JESUS, TSHX, LIVP, B12FOL, LACTIC, FT4, BMP #### [employer] [facility] [address], [place] [phone] Envelope Folding Machine Adjuster: Tato Ibarra MD Eosinophils (Bld) [#/Vol] 0.00 10*3/uL Normal 0.00-0.44 [facility] Comment on above: Performed By: #### O SMO, LD, MG, JESUS, TSHX, LIVP, B12FOL, LACTIC, FT4, BMP #### [employer] [facility] [address] [place] [address] Envelope Folding Machine Adjuster: Tato Ibarra MD Eosinophils/100 WBC (Bld) 0 % Low 1-4 [facility] Comment on above: Performed By: #### O SMO, LD, MG, JESUS, TSHX, LIVP, B12FOL, LACTIC, FT4, BMP #### [facility] [address] [place] [address] [phone] Envelope Folding Machine Adjuster: Tato Ibarra MD Immature granulocytes/100 WBC (Bld) 0 % Normal 0 [facility] Comment on above: Performed By: #### O SMO, LD, MG, JESUS, TSHX, LIVP, B12FOL, LACTIC, FT4, BMP #### [facility] [address] [place] [address] [phone] En[employer] Machine Adjuster: Tato Ibarra MD Lymphocytes/100 WBC (Bld) 22 % Low 24-43 [facility] Comment on above: Performed By: #### O SMO, LD, MG, JESUS, TSHX, LIVP, B12FOL, LACTIC, FT4, BMP #### [facility] [address] [place] [address] [phone] Envelope Folding Machine Adjuster: Tato Ibarra MD Monocytes/100 WBC (Bld) 12 % Normal 3-12 [facility] Comment on above: Performed By: #### O SMO, LD, MG, JESUS, TSHX, LIVP, B12FOL, LACTIC, FT4, BMP #### [facility] [address] [place] [address] [phone] Envelope Folding Machine Adjuster: Tato Ibarra MD Morphology Ritesh (Bld) [Interp] ANISOCYTOSIS PRESENT Normal [facility] Comment on above: Result Comment: HYPO CHROMIA PRESENT Performed By: #### O SMO, LD, MG, JESUS, TSHX, LIVP, B12FOL, LACTIC, FT4, BMP #### [facility] [address] [place] [address] [phone] Envelope Folding Machine Adjuster: Tato Ibarra MD Abs. Basophil 0.00 k/uL Normal 0.00-0.20 [facility] Comment on above: Performed By: #### O SMO, LD, MG, JESUS, TSHX, LIVP, B12FOL, LACTIC, FT4, BMP #### [address] [address] Envelope Folding Machine Adjuster: Tato Ibarra MD Abs.Imm.Granulocyte 0.00 k/uL Normal 0.00-0.30 [facility] Comment on above: Performed By: #### O SMO, LD, MG, JESUS, TSHX, LIVP, B12FOL, LACTIC, FT4, BMP #### [address] [address] En[employer] Machine Adjuster: Tato Ibarra MD Abs.Neutrophil (Seg) 4.48 k/uL Normal 1.50-8.10 [facility] Comment on above: Performed By: #### O SMO, LD, MG, JESUS, TSHX, LIVP, B12FOL, LACTIC, FT4, BMP #### [facility] [employer] [address] [place] [address] [phone] En[employer] Machine Adjuster: Tato Ibarra MD Lymphocytes (Bld) [#/Vol] 1.50 10*3/uL Normal 1.10-3.70 [facility] Comment on above: Performed By: #### O SMO, LD, MG, JESUS, TSHX, LIVP, B12FOL, LACTIC, FT4, BMP #### [facility] [employer] [address] [place] [address] [phone] En[employer] Machine Adjuster: Tato Ibarra MD Monocytes (Bld) [#/Vol] 0.82 10*3/uL Normal 0.10-1.20 [facility] Comment on above: Performed By: #### O SMO, LD, MG, JESUS, TSHX, LIVP, B12FOL, LACTIC, FT4, BMP #### [facility] [employer] [address] [place] [address] [phone] En[employer] Machine Adjuster: Tato Ibarra MD Neutrophil (Seg) 66 % High 36-65 [facility] Comment on above: Performed By: #### O SMO, LD, MG, JESUS, TSHX, LIVP, B12FOL, LACTIC, FT4, BMP #### [address] [phone] [employer] Adjuster: Tato Ibarra MD Erythrocyte distribution width (RBC) [Ratio] 23.0 % High 11.8-14.4 [facility] Comment on above: Performed By: #### O SMO, LD, MG, JESUS, TSHX, LIVP, B12FOL, LACTIC, FT4, BMP #### [address] [phone] [employer] Adjuster: Tato Ibarra MD Hematocrit (Bld) [Volume fraction] 24.8 % Low 36.3-47.1 [facility] Comment on above: Performed By: #### O SMO, LD, MG, JESUS, TSHX, LIVP, B12FOL, LACTIC, FT4, BMP #### [facility] [employer] [address] [place] [address] [phone] [employer] Machine Adjuster: Tato Ibarra MD Hemoglobin (Bld) [Mass/Vol] 8.4 g/dL Low 11.9-15.1 [facility] Comment on above: Performed By: #### O SMO, LD, MG, JESUS, TSHX, LIVP, B12FOL, LACTIC, FT4, BMP #### [facility] [employer] [address] [place] [address] [phone] Envelope [employer] Machine Adjuster: Tato Ibarra MD MCH (RBC) [Entitic mass] 31.1 pg Normal 25.2-33.5 [facility] Comment on above: Performed By: #### O SMO, LD, MG, JESUS, TSHX, LIVP, B12FOL, LACTIC, FT4, BMP #### [facility] [employer] [address] [place] [address] [phone] En[employer] Machine Adjuster: Tato Ibarra MD MCHC (RBC) [Mass/Vol] 33.9 g/dL Normal 28.4-34.8 [facility] Comment on above: Performed By: #### O SMO, LD, MG, JESUS, TSHX, LIVP, B12FOL, LACTIC, FT4, BMP #### [address] [address] [employer] Adjuster: Tato Ibarra MD MCV (RBC) [Entitic vol] 91.9 fL Normal 82.6-102.9 [facility] Comment on above: Performed By: #### O SMO, LD, MG, JESUS, TSHX, LIVP, B12FOL, LACTIC, FT4, BMP #### [address] [address] [employer] Adjuster: Tato Ibarra MD NRBC Automated 0.0 per 100 WBC Normal 0.0 [facility] Comment on above: Performed By: #### O SMO, LD, MG, JESUS, TSHX, LIVP, B12FOL, LACTIC, FT4, BMP #### [address] [address] [employer] Adjuster: Tato Ibarra MD Platelet mean volume (Bld) [Entitic vol] 9.3 fL Normal 8.1-13.5 [facility] Comment on above: Performed By: #### O SMO, LD, MG, JESUS, TSHX, LIVP, B12FOL, LACTIC, FT4, BMP #### [facility] [employer] [address] [place] [address] [phone] [employer] Adjuster: Tato Ibarra MD Platelets (Bld) [#/Vol] 207 10*3/uL Normal 138-453 [facility] Comment on above: Performed By: #### O SMO, LD, MG, JESUS, TSHX, LIVP, B12FOL, LACTIC, FT4, BMP #### [address] [address] [employer] Adjuster: Tato Ibarra MD RBC (Bld) [#/Vol] 2.70 10*6/uL Low 3.95-5.11 [facility] Comment on above: Performed By: #### O SMO, LD, MG, JESUS, TSHX, LIVP, B12FOL, LACTIC, FT4, BMP #### [address] [address] [employer] Adjuster: Tato Ibarra MD WBC (Bld) [#/Vol] 6.8 10*3/uL Normal 3.5-11.3 [facility] Comment on above: Performed By: #### O SMO, LD, MG, JESUS, TSHX, LIVP, B12FOL, LACTIC, FT4, BMP #### [address] [address] [employer] Adjuster: Tato Ibarra MD Abs. Basophil 0.00 k/uL Normal 0.00-0.20 [facility] Comment on above: Performed By: #### O SMO, LD, MG, JESUS, TSHX, LIVP, B12FOL, LACTIC, FT4, BMP #### [address] [address] [employer] Adjuster: Tato Ibarra MD Abs.Imm.Granulocyte 0.00 k/uL Normal 0.00-0.30 [facility] Comment on above: Performed By: #### O SMO, LD, MG, JESUS, TSHX, LIVP, B12FOL, LACTIC, FT4, BMP #### [facility] [employer] [address] [place] [address] En[employer] Adjuster: Tato Ibarra MD Abs.Neutrophil (Seg) 4.76 k/uL Normal 1.50-8.10 [facility] Comment on above: Performed By: #### O SMO, LD, MG, JESUS, TSHX, LIVP, B12FOL, LACTIC, FT4, BMP #### [address] [address] [employer] Adjuster: Tato Ibarra MD Basophils/100 WBC (Bld) 0 % Normal 0-2 [facility] Comment on above: Performed By: #### O SMO, LD, MG, JESUS, TSHX, LIVP, B12FOL, LACTIC, FT4, BMP #### [facility] [address] [place] [address] 8[address]66 En[employer] Machine Adjuster: Tato Ibarra MD Eosinophils (Bld) [#/Vol] 0.00 10*3/uL Normal 0.00-0.44 [facility] Comment on above: Performed By: #### O SMO, LD, MG, JESUS, TSHX, LIVP, B12FOL, LACTIC, FT4, BMP #### [address] [address] [employer] Adjuster: Tato Ibarra MD Eosinophils/100 WBC (Bld) 0 % Low 1-4 [facility] Comment on above: Performed By: #### O SMO, LD, MG, JESUS, TSHX, LIVP, B12FOL, LACTIC, FT4, BMP #### [facility] [employer] [address] [place] [address] En[employer] Adjuster: Tato Ibarra MD Immature granulocytes/100 WBC (Bld) 0 % Normal 0 [facility] Comment on above: Performed By: #### O SMO, LD, MG, JESUS, TSHX, LIVP, B12FOL, LACTIC, FT4, BMP #### [facility] [employer] [address] [place] [address] [employer] Machine Adjuster: Tato Ibarra MD Lymphocytes (Bld) [#/Vol] 1.52 10*3/uL Normal 1.10-3.70 [facility] Comment on above: Performed By: #### O SMO, LD, MG, JESUS, TSHX, LIVP, B12FOL, LACTIC, FT4, BMP #### [facility] [employer] [address] [place] [phone] En[employer] Adjuster: Tato Ibarra MD Lymphocytes/100 WBC (Bld) 22 % Low 24-43 [facility] Comment on above: Performed By: #### O SMO, LD, MG, JESUS, TSHX, LIVP, B12FOL, LACTIC, FT4, BMP #### [address] [address] [employer] Adjuster: Tato Ibarra MD Monocytes (Bld) [#/Vol] 0.62 10*3/uL Normal 0.10-1.20 [facility] Comment on above: Performed By: #### O SMO, LD, MG, JESUS, TSHX, LIVP, B12FOL, LACTIC, FT4, BMP #### [address] [address] [employer] Adjuster: Tato Ibarra MD Monocytes/100 WBC (Bld) 9 % Normal 3-12 [facility] Comment on above: Performed By: #### O SMO, LD, MG, JESUS, TSHX, LIVP, B12FOL, LACTIC, FT4, BMP #### [address] [address] [employer] Adjuster: Tato Ibarra MD Morphology Ritesh (Bld) [Interp] ANISOCYTOSIS PRESENT Normal [facility] Comment on above: Result Comment: HYPO CHROMIA PRESENT Performed By: #### O SMO, LD, MG, JESUS, TSHX, LIVP, B12FOL, LACTIC, FT4, BMP #### [address] [address] [employer] Adjuster: Tato Ibarra MD Neutrophil (Seg) 69 % High 36-65 [facility] Comment on above: Performed By: #### O SMO, LD, MG, JESUS, TSHX, LIVP, B12FOL, LACTIC, FT4, BMP #### [address] [address] [employer] Adjuster: Tato Ibarra MD Erythrocyte distribution width (RBC) [Ratio] 22.9 % High 11.8-14.4 [facility] Comment on above: Performed By: #### O SMO, LD, MG, JESUS, TSHX, LIVP, B12FOL, LACTIC, FT4, BMP #### [address] [phone] [employer] Adjuster: Tato Ibarra MD Hematocrit (Bld) [Volume fraction] 25.7 % Low 36.3-47.1 [facility] Comment on above: Performed By: #### O SMO, LD, MG, JESUS, TSHX, LIVP, B12FOL, LACTIC, FT4, BMP #### [address] [phone] [employer] Adjuster: Tato Ibarra MD Hemoglobin (Bld) [Mass/Vol] 8.8 g/dL Low 11.9-15.1 [facility] Comment on above: Performed By: #### O SMO, LD, MG, JESUS, TSHX, LIVP, B12FOL, LACTIC, FT4, BMP #### [facility] [employer] [address] [place] [address] [employer] Adjuster: Tato Ibarra MD MCH (RBC) [Entitic mass] 31.5 pg Normal 25.2-33.5 [facility] Comment on above: Performed By: #### O SMO, LD, MG, JESUS, TSHX, LIVP, B12FOL, LACTIC, FT4, BMP #### [facility] [employer] [address] [place] [phone] [employer] Adjuster: Tato Ibarra MD MCHC (RBC) [Mass/Vol] 34.2 g/dL Normal 28.4-34.8 [facility] Comment on above: Performed By: #### O SMO, LD, MG, JESUS, TSHX, LIVP, B12FOL, LACTIC, FT4, BMP #### [facility] [address] [place] [id number] Envelope Folding Machine Adjuster: Tato Ibarra MD MCV (RBC) [Entitic vol] 92.1 fL Normal 82.6-102.9 [facility] Comment on above: Performed By: #### O SMO, LD, MG, JESUS, TSHX, LIVP, B12FOL, LACTIC, FT4, BMP #### [address] [address] Envelope [employer] Machine Adjuster: Tato Ibarra MD NRBC Automated 0.0 per 100 WBC Normal 0.0 [facility] Comment on above: Performed By: #### O SMO, LD, MG, JESUS, TSHX, LIVP, B12FOL, LACTIC, FT4, BMP #### [address] [address] [employer] Machine Adjuster: Tato Ibarra MD Platelet mean volume (Bld) [Entitic vol] 9.2 fL Normal 8.1-13.5 [facility] Comment on above: Performed By: #### O SMO, LD, MG, JESUS, TSHX, LIVP, B12FOL, LACTIC, FT4, BMP #### [address] [address] Envelope F[employer] Machine Adjuster: Tato Ibarra MD Platelets (Bld) [#/Vol] 215 10*3/uL Normal 138-453 [facility] Comment on above: Performed By: #### O SMO, LD, MG, JESUS, TSHX, LIVP, B12FOL, LACTIC, FT4, BMP #### [facility] [employer] [address] [place] [id number] Envelope Folding Machine Adjuster: Tato Ibarra MD RBC (Bld) [#/Vol] 2.79 10*6/uL Low 3.95-5.11 [facility] Comment on above: Performed By: #### O SMO, LD, MG, JESUS, TSHX, LIVP, B12FOL, LACTIC, FT4, BMP #### [address] [address] [employer] Machine Adjuster: Tato Ibarra MD WBC (Bld) [#/Vol] 6.9 10*3/uL Normal 3.5-11.3 [facility] Comment on above: Performed By: #### O SMO, LD, MG, JESUS, TSHX, LIVP, B12FOL, LACTIC, FT4, BMP #### [facility] [address] [place] [address] Envelope Folding Machine Adjuster: Tato Ibarra MD CTA ABDOMEN PELVIS W WO CONT DEVONTon 01-02-2024 CTA ABDOMEN PELVIS W WO CONTRAST [...] Nasir Martinez MD 01/02/24 Final result Normal [facility] CTA Abdominal vessels and Pe lvis vessels WO and W contrast [place]apha 01-02-2024 1. No active contrast extravasation or pseudoaneurysm. [...] L5-S1, L1-L2, and on either side T11. [facility] EXAMINATION: CTA OF THE ABDOMEN AND PELVIS [...] L5-S1, L1-L2, and on either side T11. [facility] Nasir Martinez MD - 01/02/2024 EXAMINATION: CTA OF THE ABDOMEN AND PELVIS [...] L5-S1, L1-L2, and on either side T11. [facility] CTA Abdominal vessels and Pe lvis vessels WO and W contrast IVOrdered By: Nasir Martinez on 01-02-2024 [facility] Work Phone: Comp Metabolic Pr/rfx MGon 0 01-02-2024 Albumin [Mass/Vol] 2.7 g/dL Low 3.5-5.2 [facility] Comment on above: Performed By: #### O SMO, LD, MG, JESUS, TSHX, LIVP, B12FOL, LACTIC, FT4, BMP #### [address] [address] [employer] Adjuster: Tato Ibarra MD Albumin/Glob Ratio 2.0 Normal 1.0-2.5 [facility] Comment on above: Performed By: #### O SMO, LD, MG, JESUS, TSHX, LIVP, B12FOL, LACTIC, FT4, BMP #### [address] [address] [employer] Adjuster: Tato Ibarra MD Alkaline Phos 124 U/L High 35-104 [facility] Comment on above: Performed By: #### O SMO, LD, MG, JESUS, TSHX, LIVP, B12FOL, LACTIC, FT4, BMP #### [address] [id number] [employer] Adjuster: Tato Ibarra MD ALT [Catalytic activity/Vol] 13 U/L Normal 10-35 [facility] Comment on above: Performed By: #### O SMO, LD, MG, JESUS, TSHX, LIVP, B12FOL, LACTIC, FT4, BMP #### [address] [address] [employer] Machine Adjuster: Tato Ibarra MD Anion gap [Moles/Vol] 12 mmol/L Normal 9-16 [facility] Comment on above: Performed By: #### O SMO, LD, MG, JESUS, TSHX, LIVP, B12FOL, LACTIC, FT4, BMP #### [address] [address] [employer] Machine Adjuster: Tato Ibarra MD AST [Catalytic activity/Vol] 42 U/L High 10-35 [facility] Comment on above: Performed By: #### O SMO, LD, MG, JESUS, TSHX, LIVP, B12FOL, LACTIC, FT4, BMP #### [facility] [employer] [address] [place] [address] [phone] En[employer] Machine Adjuster: Tato Ibarra MD Bilirubin [Mass/Vol] 0.8 mg/dL Normal 0.00-1.20 [facility] Comment on above: Performed By: #### O SMO, LD, MG, JESUS, TSHX, LIVP, B12FOL, LACTIC, FT4, BMP #### [address] [id number] [employer] Adjuster: Tato Ibarra MD Calcium [Mass/Vol] 7.8 mg/dL Low 8.6-10.4 [facility] Comment on above: Performed By: #### O SMO, LD, MG, JESUS, TSHX, LIVP, B12FOL, LACTIC, FT4, BMP #### [address] [address] [employer] Adjuster: Tato Ibarra MD Chloride [Moles/Vol] 106 mmol/L Normal 98-107 [facility] Comment on above: Performed By: #### O SMO, LD, MG, JESUS, TSHX, LIVP, B12FOL, LACTIC, FT4, BMP #### [address] [address] [employer] Adjuster: Tato Ibarra MD CO2 [Moles/Vol] 19 mmol/L Low 20-31 [facility] Comment on above: Performed By: #### O SMO, LD, MG, JESUS, TSHX, LIVP, B12FOL, LACTIC, FT4, BMP #### [facility] [employer] [address] [place] [phone] En[employer] Machine Adjuster: Tato Ibarra MD Creatinine [Mass/Vol] 0.3 mg/dL Low 0.50-0.90 [facility] Comment on above: Performed By: #### O SMO, LD, MG, JESUS, TSHX, LIVP, B12FOL, LACTIC, FT4, BMP #### [facility] [employer] [address] [place] [address] [phone] [employer] Machine Adjuster: Tato Ibarra MD GFR/1.73 sq M.predicted among non-blacks MDRD (S/P/Bld) [Vol rate/Area] mL/min/{1.73_m2} Normal >60 [facility] Comment on above: Result Comment: These results [...] TSHX, LIVP, B12FOL, LACTIC, FT4, BMP #### [address] [phone] [employer] Machine Adjuster: Tato Ibarra MD Glucose [Mass/Vol] 104 mg/dL High 74-99 [facility] Comment on above: Performed By: #### O SMO, LD, MG, JESUS, TSHX, LIVP, B12FOL, LACTIC, FT4, BMP #### [facility] [employer] [address] [place] [address] [phone] [employer] Machine Adjuster: Tato Ibarra MD Potassium [Moles/Vol] 3.9 mmol/L Normal 3.7-5.3 [facility] Comment on above: Performed By: #### O SMO, LD, MG, JESUS, TSHX, LIVP, B12FOL, LACTIC, FT4, BMP #### [facility] [employer] [address] [place] [address] [phone] [employer] Machine Adjuster: Tato Ibarra MD Protein [Mass/Vol] 4.5 g/dL Low 6.6-8.7 [facility] Comment on above: Performed By: #### O SMO, LD, MG, JESUS, TSHX, LIVP, B12FOL, LACTIC, FT4, BMP #### [employer] [facility] [address] [place], [place] [phone] Envelope Folding Machine Adjuster: Tato Ibarra MD Sodium [Moles/Vol] 137 mmol/L Normal 136-145 [facility] Comment on above: Performed By: #### O SMO, LD, MG, JESUS, TSHX, LIVP, B12FOL, LACTIC, FT4, BMP #### [employer] [facility] [address] [place], [place] [phone] Envelope F[employer] Machine Adjuster: Tato Ibarra MD Urea nitrogen [Mass/Vol] 8 mg/dL Normal 6-20 [facility] Comment on above: Performed By: #### O SMO, LD, MG, JESUS, TSHX, LIVP, B12FOL, LACTIC, FT4, BMP #### [employer] [facility] [address] [place], [place] [phone] Envelope F[employer] Machine Adjuster: Tato Ibarra MD Comprehensive Metabolic Pane l w/ Reflex to MGon 01-02-2024 Albumin [Mass/Vol] 2.7 g/dL Low 3.5 - 5.2 g/dL [facility] Albumin/Globulin [Mass ratio] 2.0 {ratio} 1.0 - 2.5 [facility] ALP [Catalytic activity/Vol] 124 U/L High 35 - 104 U/L [facility] ALT [Catalytic activity/Vol] 13 U/L 10 - 35 U/L [facility] Anion gap [Moles/Vol] 12 mmol/L 9 - 16 mmol/L [facility] AST [Catalytic activity/Vol] 42 U/L High 10 - 35 U/L [facility] Bilirubin [Mass/Vol] 0.8 mg/dL 0.00 - 1.20 mg/ dL [facility] Calcium [Mass/Vol] 7.8 mg/dL Low 8.6 - 10.4 mg/dL [facility] Chloride [Moles/Vol] 106 mmol/L 98 - 107 mmol/L [facility] CO2 [Moles/Vol] 19 mmol/L Low 20 - 31 mmol/L [facility] Creatinine [Mass/Vol] 0.3 mg/dL Low 0.50 - 0.90 mg/dL [employer], Otis Mayt Rate - PINF [facility] S [facility] Comment on above: These results are not intended for use [...] following therapy that affects renal tubular secretion. Glucose [Mass/Vol] 104 mg/dL High 74 - 99 mg/dL [facility] Interpretation and review of laboratory results Abnormal [facility] [employer] Potassium [Moles/Vol] 3.9 mmol/L 3.7 - 5.3 mmol/L [facility] Protein [Mass/Vol] 4.5 g/dL Low 6.6 - 8.7 g/dL [facility] [employer] Sodium [Moles/Vol] 137 mmol/L 136 - 145 mmol/L [facility] Urea nitrogen [Mass/Vol] 8 mg/dL 6 - 20 mg/dL [facility] EKG 12 LeadOrdered By: Noé Godinez on 01-02-2024 Atrial Rate 103 BPM [employer] Work Phone: P [place] 9 degrees [employer] Work Phone: P-R Interval 156 ms [employer] Work Phone: Q-T Interval 358 ms [employer] Work Phone: QRS Duration 82 ms [employer] Work Phone: QTc Calculation (Bazett) 468 ms [employer] Work Phone: [phone] R [place] 26 degrees [employer] Work Phone: T [place] 170 degrees [employer] Work Phone: Ventricular Rate 103 BPM [employer] Work Phone: [facility] Work Phone: EKG 12 Leadon 01-02-2024 Sinus tachycardia T wave abnormality, consider anterior ischemia Abnormal ECG When compared with ECG of 31-DEC-2023 16:01, No significant change was found [facility] Noé Prescott MD - 01/02/2024 Sinus tachycardia T wave abnormality, consider anterior ischemia Abnormal ECG When compared with ECG of 31-DEC-2023 16:01, No significant change was found [facility] Glucose,Whole Bloodon 2023 Glucose [Mass/Vol] 93 mg/dL Normal 65-105 [facility] Hemoglobin and Hematocriton 01-02-2024 Hematocrit (Bld) [Volume fraction] 26.3 % Low 36.3 - 47.1 % [facility] Hemoglobin (Bld) [Mass/Vol] 9.1 g/dL Low 11.9 - 15.1 g/dL [facility] Interpretation and review of laboratory results Abnormal [facility] Hematocrit (Bld) [Volume fraction] 25.2 % Low 36.3 - 47.1 % [facility] Hemoglobin (Bld) [Mass/Vol] 8.5 g/dL Low 11.9 - 15.1 g/dL [facility] Interpretation and review of laboratory results Abnormal [facility] Hematocrit (Bld) [Volume fraction] 25.0 % Low 36.3 - 47.1 % [facility] Hemoglobin (Bld) [Mass/Vol] 8.6 g/dL Low 11.9 - 15.1 g/dL [facility] Interpretation and review of laboratory results Abnormal [facility] Hgb/Hcton 01-02-2024 Hematocrit (Bld) [Volume fraction] 26.3 % Low 36.3-47.1 [facility] Comment on above: Performed By: #### P TT, PT #### [facility] [employer] [address] [place] [phone] Envelope Folding Machine Adjuster: Tato Ibarra MD Hemoglobin (Bld) [Mass/Vol] 9.1 g/dL Low 11.9-15.1 [facility] Comment on above: Performed By: #### P TT, PT #### [facility] [address] [place] [phone] Envelope Folding Machine Adjuster: Tato Ibarra MD Hematocrit (Bld) [Volume fraction] 25.2 % Low 36.3-47.1 [facility] Comment on above: Performed By: #### O SMO, LD, MG, JESUS, TSHX, LIVP, B12FOL, LACTIC, FT4, BMP #### [facility] [employer] [address] [place] [phone] En[employer] Adjuster: Tato Ibarra MD Hemoglobin (Bld) [Mass/Vol] 8.5 g/dL Low 11.9-15.1 [facility] Comment on above: Performed By: #### O SMO, LD, MG, JESUS, TSHX, LIVP, B12FOL, LACTIC, FT4, BMP #### [facility] [address] [place] [phone] En[employer] Machine Adjuster: Tato Ibarra MD Hematocrit (Bld) [Volume fraction] 25.0 % Low 36.3-47.1 [facility] Comment on above: Performed By: #### P TT, PT #### [facility] [address] [place] [phone] [employer] Adjuster: Tato Ibarra MD Hemoglobin (Bld) [Mass/Vol] 8.6 g/dL Low 11.9-15.1 [facility] Comment on above: Performed By: #### P TT, PT #### [facility] [address] [place] [phone] [employer] Adjuster: Tato Ibarra MD IR EMBOLIZATION HEMORRHAGEon 01-02-2024 1. No active contrast extravasation, pseudoaneurysm or other definite focal branch abnormality or treatable lesion demonstrated from the left gastric artery at this time. Postsurgical changes, as above. 2. Right groin femoral artery sheath left in place. 3. If there is continued clinical concern for active GI bleed, consider repeat angiography or nuclear medicine GI bleeding scan. [facility] Nasir Dominguez MD - 01/02/2024 PROCEDURE: IR EMBOLIZATION VASCULAR ANY HEMORRHAGE 01/01/2024 [...] a 0.035 inch wire and 5 South African introducer sheath. A 5 [place] African Bren catheter was then used to selectively catheterize the celiac artery and digital angiography was performed in AP and oblique projections. Subsequently, several different catheters were used to attempt selective catheterization of the left gastric artery, ultimately successful with a 5 [place] Cobra catheter. Digital angiography of the left [...] angiography or nuclear medicine GI bleeding scan. [facility] Lipaseon 01-02-2024 Lipase [Catalytic activity/Vol] 18 U/L 13 - 60 U/L [facility] Lipase [Catalytic activity/Vol] 18 U/L Normal 13-60 [facility] Comment on above: Performed By: #### O SMO, LD, MG, JESUS, TSHX, LIVP, B12FOL, LACTIC, FT4, BMP #### [facility] [place] [address] Envelope Folding Machine Adjuster: Tato Ibarra MD MRSA DNA Probe, Nasalon MRSA, DNA, Nasal Negative NEGATIVE [facility] Comment on above: NEGATIVE: MRSA DNA n ot detected by nucleic acid amplification. Results should be used as an adjunct to nosocomial control efforts to identify patients needing enhanced precautions. The test is not intended to identify patients with staphylococcal infections. Results should not be used to guide or monitor treatment for MRSA infections. Specimen Description .NASAL SWAB [facility] MRSA, DNA, Nasalon MRSA, DNA, Nasal Negative Normal NEG [facility] Comment on above: Result Comment: NEGA [...] TSHX, LIVP, B12FOL, LACTIC, FT4, BMP #### [employer] [address] [place] [address] Envelope Folding Machine Adjuster: Tato Ibarra MD Magnesiumon 01-02-2024 Magnesium [Mass/Vol] 1.9 mg/dL 1.6 - 2.6 mg/dL [facility] Magnesium [Mass/Vol] 1.9 mg/dL Normal 1.6-2.6 [facility] Comment on above: Performed By: #### O SMO, LD, MG, JESUS, TSHX, LIVP, B12FOL, LACTIC, FT4, BMP #### [facility] [address], [place] [phone] Envelope Folding Machine Adjuster: Tato Ibarra MD No Panel Informationon 01-01 Blood Bank Blood Product Expiration Date [facility] Blood Bank ISBT Product Blood Type 9500 [facility] Blood Bank Unit Type and Rh Negative [facility] Component Leukocyte Reduced Red Cell [facility] Crossmatch Result COMPATIBLE [facility] Dispense Status Blood Bank TRANSFUSED [facility] Product Code Blood Bank [id number] [facility] Transfusion Status OK TO TRANSFUSE B ON [facility] Unit Divison 0 [facility] POC Glucose Fingerstickon Glucose [Mass/Vol] 93 mg/dL 65 - 105 mg/dL [facility] TYPE AND SCREENon 01-02-2024 ABO/Rh Negative [facility] Arm Band Number BE [id number] [facility] Blood Bank Sample Expiration 01/03/2024,2359 [facility] Blood product unit ID (Dose) [#] [id number] [facility] Blood product unit ID (Dose) [#] [id number] [facility] Unit Issue Date/Time [facility] Unit Issue Date/Time [facility] Troponinon 01-02-2024 Troponin I.cardiac High sensitivity method [Mass/Vol] ng/L 0 - 14 ng/L [facility] Comment on above: High Sensitivity Tro ponin values cannot be compared with other Troponin methodologies. Troponin, High Sens <6 Normal 0-14 [facility] Comment on above: Result Comment: High Sensitivity Troponin values cannot be compared with other Troponin methodologies. Performed By: #### O SMO, LD, MG, JESUS, TSHX, LIVP, B12FOL, LACTIC, FT4, BMP #### [address] [address] [employer] Adjuster: Tato Ibarra MD APTTon 01-01-2024 aPTT Coag (Bld) [Time] 24.6 s [facility] Comment on above: IV Heparin Therapy Range: 66.0-92.0 sec aPTT Coag (Bld) [Time] 24.6 s Normal 23.0-36.5 [facility] Comment on above: Result Comment: IV Heparin Therapy Range: 66.0-92.0 sec Performed By: #### P TT, PT #### [address] [phone] [employer] Adjuster: Tato Ibarra MD Basic Metab w/rfx MGon 12-31 Anion gap [Moles/Vol] 9 mmol/L Normal 9-16 [facility] Comment on above: Performed By: #### O SMO, LD, MG, JESUS, TSHX, LIVP, B12FOL, LACTIC, FT4, BMP #### [address] [id number] [employer] Adjuster: Tato Ibarra MD Calcium [Mass/Vol] 8.5 mg/dL Low 8.6-10.4 [facility] Comment on above: Performed By: #### O SMO, LD, MG, JESUS, TSHX, LIVP, B12FOL, LACTIC, FT4, BMP #### [address] [address] [employer] Adjuster: Tato Ibarra MD Chloride [Moles/Vol] 107 mmol/L Normal 98-107 [facility] Comment on above: Performed By: #### O SMO, LD, MG, JESUS, TSHX, LIVP, B12FOL, LACTIC, FT4, BMP #### [address] [address] [employer] Adjuster: Tato Ibarra MD CO2 [Moles/Vol] 23 mmol/L Normal 20-31 [facility] Comment on above: Performed By: #### O SMO, LD, MG, JESUS, TSHX, LIVP, B12FOL, LACTIC, FT4, BMP #### [address] [phone] [employer] Adjuster: Tato Ibarra MD Creatinine [Mass/Vol] 0.3 mg/dL Low 0.50-0.90 [facility] Comment on above: Performed By: #### O SMO, LD, MG, JESUS, TSHX, LIVP, B12FOL, LACTIC, FT4, BMP #### [address] [phone] [employer] Adjuster: Tato Ibarra MD GFR/1.73 sq M.predicted among non-blacks MDRD (S/P/Bld) [Vol rate/Area] mL/min/{1.73_m2} Normal >60 [facility] Comment on above: Result Comment: These results [...] TSHX, LIVP, B12FOL, LACTIC, FT4, BMP #### [address] [phone] [employer] Adjuster: Tato Ibarra MD Glucose [Mass/Vol] 86 mg/dL Normal 74-99 [facility] Comment on above: Performed By: #### O SMO, LD, MG, JESUS, TSHX, LIVP, B12FOL, LACTIC, FT4, BMP #### [facility] [address] [place] [address] [phone] Envelope Folding Machine Adjuster: Tato Ibarra MD Potassium [Moles/Vol] 3.3 mmol/L Low 3.7-5.3 [facility] Comment on above: Performed By: #### O SMO, LD, MG, JESUS, TSHX, LIVP, B12FOL, LACTIC, FT4, BMP #### [facility] [address] [place] [address] [phone] [employer] Adjuster: Tato Ibarra MD Sodium [Moles/Vol] 139 mmol/L Normal 136-145 [facility] Comment on above: Performed By: #### O SMO, LD, MG, JESUS, TSHX, LIVP, B12FOL, LACTIC, FT4, BMP #### [employer] [facility] [address] [place] [address] [phone] [employer] Adjuster: Tato Ibarra MD Urea nitrogen [Mass/Vol] mg/dL Low 6-20 [facility] Comment on above: Performed By: #### O SMO, LD, MG, JESUS, TSHX, LIVP, B12FOL, LACTIC, FT4, BMP #### [employer] [address] [place] [address] [phone] [employer] Adjuster: Tato Ibarra MD Basic Metabolic Panel w/ Ref jacinto to MGon 01-01-2024 Anion gap [Moles/Vol] 9 mmol/L 9 - 16 mmol/L [facility] Calcium [Mass/Vol] 8.5 mg/dL Low 8.6 - 10.4 mg/dL [facility] Chloride [Moles/Vol] 107 mmol/L 98 - 107 mmol/L [facility] CO2 [Moles/Vol] 23 mmol/L 20 - 31 mmol/L [facility] Creatinine [Mass/Vol] 0.3 mg/dL Low 0.50 - 0.90 mg/dL [facility] Est, Otis Ballard Rate - PINF [facility] Comment on above: These results are not intended for use [...] following therapy that affects renal tubular secretion. Glucose [Mass/Vol] 86 mg/dL 74 - 99 mg/dL [facility] Potassium [Moles/Vol] 3.3 mmol/L Low 3.7 - 5.3 mmol/L [facility] Sodium [Moles/Vol] 139 mmol/L 136 - 145 mmol/L [facility] Urea nitrogen [Mass/Vol] mg/dL Low 6 - 20 mg/dL [facility] CBC with Auto Differentialon 01-01-2024 Basophils (Bld) [#/Vol] 0.00 10*3/uL [facility] Basophils/100 WBC (Bld) 0 % 0 - 2 % [facility] Eosinophils (Bld) [#/Vol] 0.00 10*3/uL [facility] Eosinophils/100 WBC (Bld) 0 % Low 1 - 4 % [facility] Erythrocyte distribution width (RBC) [Ratio] 22.1 % High 11.8 - 14.4 % [facility] Hematocrit (Bld) [Volume fraction] 29.9 % Low 36.3 - 47.1 % [facility] Comment on above: TEST CONFIRMED Hemoglobin (Bld) [Mass/Vol] 10.2 g/dL Low 11.9 - 15.1 g/dL [facility] Comment on above: TEST CONFIRMED Immature granulocytes (Bld) [#/Vol] 0.07 10*3/uL [facility] Immature granulocytes/100 WBC (Bld) 1 % High 0 [facility] Interpretation and review of laboratory results Abnormal [facility] Lymphocytes/100 WBC (Bld) 17 % Low 24 - 43 % [facility] Lymphocytes/100 WBC (Bld) 1.11 % [facility] MCH (RBC) [Entitic mass] 31.6 pg 25.2 - 33.5 pg [facility] MCHC (RBC) [Mass/Vol] 34.1 g/dL 28.4 - 34.8 g/dL [facility] MCV (RBC) [Entitic vol] 92.6 fL 82.6 - 102.9 fL [facility] Monocytes/100 WBC (Bld) 6 % 3 - 12 % [facility] Monocytes/100 WBC (Bld) 0.39 % [facility] Morphology Ritesh (Bld) [Interp] Normal [facility] Neutrophils/100 WBC (Bld) 76 % High 36 - 65 % [facility] Nucleated RBC/100 WBC (Bld) [Ratio] 0.0 % 0.0 per 100 WBC [facility] Platelet mean volume (Bld) [Entitic vol] 9.5 fL 8.1 - 13.5 fL [facility] Platelets (Bld) [#/Vol] 222 10*3/uL [facility] RBC (Bld) [#/Vol] 3.23 10*6/uL Low 3.95 - 5.11 m/uL [facility] Segmented neutrophils/100 WBC (Bld) 4.93 % [facility] WBC other (Bld) [#/Vol] 6.5 [facility] Basophils (Bld) [#/Vol] 0.03 10*3/uL [facility] Basophils/100 WBC (Bld) 1 % 0 - 2 % [facility] Eosinophils (Bld) [#/Vol] 0.14 10*3/uL [facility] Eosinophils/100 WBC (Bld) 3 % 1 - 4 % [facility] Erythrocyte distribution width (RBC) [Ratio] 18.6 % High 11.8 - 14.4 % [facility] Hematocrit (Bld) [Volume fraction] 32.5 % Low 36.3 - 47.1 % [facility] Hemoglobin (Bld) [Mass/Vol] 10.6 g/dL Low 11.9 - 15.1 g/dL [facility] Immature granulocytes (Bld) [#/Vol] [facility] Immature granulocytes/100 WBC (Bld) 0 % 0 [facility] Interpretation and review of laboratory results Abnormal [facility] Lymphocytes/100 WBC (Bld) 29 % 24 - 43 % [facility] Lymphocytes/100 WBC (Bld) 1.44 % [facility] MCH (RBC) [Entitic mass] 33.5 pg 25.2 - 33.5 pg [facility] MCHC (RBC) [Mass/Vol] 32.6 g/dL 28.4 - 34.8 g/dL [facility] MCV (RBC) [Entitic vol] 102.8 fL 82.6 - 102.9 fL [facility] Monocytes/100 WBC (Bld) 11 % 3 - 12 % [facility] Monocytes/100 WBC (Bld) 0.54 % [facility] Neutrophils/100 WBC (Bld) 56 % 36 - 65 % [facility] Nucleated RBC/100 WBC (Bld) [Ratio] 0.0 % 0.0 per 100 WBC [facility] Platelet mean volume (Bld) [Entitic vol] 9.5 fL 8.1 - 13.5 fL [facility] Platelets (Bld) [#/Vol] 220 10*3/uL [facility] RBC (Bld) [#/Vol] 3.16 10*6/uL Low 3.95 - 5.11 m/uL [facility] RBC (Bld) [#/Vol] ANISOCYTOSIS PRESENT [facility] Segmented neutrophils/100 WBC (Bld) 2.72 % [facility] WBC other (Bld) [#/Vol] 4.9 [facility] CBC with Diffon 01-01-2024 Abs. Basophil 0.00 k/uL Normal 0.00-0.20 [facility] Comment on above: Performed By: #### O SMO, LD, MG, JESUS, TSHX, LIVP, B12FOL, LACTIC, FT4, BMP #### [address] [address] Envelope Folding Machine Adjuster: Tato Ibarra MD Abs.Imm.Granulocyte 0.07 k/uL Normal 0.00-0.30 [facility] Comment on above: Performed By: #### O SMO, LD, MG, JESUS, TSHX, LIVP, B12FOL, LACTIC, FT4, BMP #### [place] [address] Envelope Folding Machine Adjuster: Tato Ibarra MD Abs.Neutrophil (Seg) 4.93 k/uL Normal 1.50-8.10 [facility] Comment on above: Performed By: #### O SMO, LD, MG, JESUS, TSHX, LIVP, B12FOL, LACTIC, FT4, BMP #### [place] [address] Envelope Folding Machine Adjuster: Tato Ibarra MD Basophils/100 WBC (Bld) 0 % Normal 0-2 [facility] Comment on above: Performed By: #### O SMO, LD, MG, JESUS, TSHX, LIVP, B12FOL, LACTIC, FT4, BMP #### [place] [address] Envelope Folding Machine Adjuster: Tato Ibarra MD Eosinophils (Bld) [#/Vol] 0.00 10*3/uL Normal 0.00-0.44 [facility] Comment on above: Performed By: #### O SMO, LD, MG, JESUS, TSHX, LIVP, B12FOL, LACTIC, FT4, BMP #### [address] [address] Envelope Folding Machine Adjuster: Tato Ibarra MD Eosinophils/100 WBC (Bld) 0 % Low 1-4 [facility] Comment on above: Performed By: #### O SMO, LD, MG, JESUS, TSHX, LIVP, B12FOL, LACTIC, FT4, BMP #### [address] [address] Envelope Folding Machine Adjuster: Tato Ibarra MD Immature granulocytes/100 WBC (Bld) 1 % High 0 [facility] Comment on above: Performed By: #### O SMO, LD, MG, JESUS, TSHX, LIVP, B12FOL, LACTIC, FT4, BMP #### [address] [address] Envelope Folding Machine Adjuster: Tato Ibarra MD Lymphocytes (Bld) [#/Vol] 1.11 10*3/uL Normal 1.10-3.70 [facility] Comment on above: Performed By: #### O SMO, LD, MG, JESUS, TSHX, LIVP, B12FOL, LACTIC, FT4, BMP #### [address] [address] Envelope Folding Machine Adjuster: Tato Ibarra MD Lymphocytes/100 WBC (Bld) 17 % Low 24-43 [facility] Comment on above: Performed By: #### O SMO, LD, MG, JESUS, TSHX, LIVP, B12FOL, LACTIC, FT4, BMP #### [address] [address] Envelope Folding Machine Adjuster: Tato Ibarra MD Monocytes (Bld) [#/Vol] 0.39 10*3/uL Normal 0.10-1.20 [facility] Comment on above: Performed By: #### O SMO, LD, MG, JESUS, TSHX, LIVP, B12FOL, LACTIC, FT4, BMP #### [facility] [address] [place] [address] Envelope Folding Machine Adjuster: Tato Ibarra MD Monocytes/100 WBC (Bld) 6 % Normal 3-12 [facility] Comment on above: Performed By: #### O SMO, LD, MG, JESUS, TSHX, LIVP, B12FOL, LACTIC, FT4, BMP #### [facility] [address] [place] [address] Envelope Folding Machine Adjuster: Tato Ibarra MD Morphology Ritesh (Bld) [Interp] Normal Normal [facility] Comment on above: Performed By: #### O SMO, LD, MG, JESUS, TSHX, LIVP, B12FOL, LACTIC, FT4, BMP #### [address] [address] Envelope Folding Machine Adjuster: Tato Ibarra MD Neutrophil (Seg) 76 % High 36-65 [facility] Comment on above: Performed By: #### O SMO, LD, MG, JESUS, TSHX, LIVP, B12FOL, LACTIC, FT4, BMP #### [address] [address] Envelope Folding Machine Adjuster: Tato Ibarra MD Erythrocyte distribution width (RBC) [Ratio] 22.1 % High 11.8-14.4 [facility] Comment on above: Performed By: #### O SMO, LD, MG, JESUS, TSHX, LIVP, B12FOL, LACTIC, FT4, BMP #### [address] [address] Envelope Folding Machine Adjuster: Tato Ibarra MD Hematocrit (Bld) [Volume fraction] 29.9 % Low 36.3-47.1 [facility] Comment on above: Result Comment: TEST CONFIRMED Performed By: #### O SMO, LD, MG, JESUS, TSHX, LIVP, B12FOL, LACTIC, FT4, BMP #### [address] [address] Envelope Folding Machine Adjuster: Tato Ibarra MD Hemoglobin (Bld) [Mass/Vol] 10.2 g/dL Low 11.9-15.1 [facility] Comment on above: Result Comment: TEST CONFIRMED Performed By: #### O SMO, LD, MG, JESUS, TSHX, LIVP, B12FOL, LACTIC, FT4, BMP #### [address] [address] Envelope Folding Machine Adjuster: Tato Ibarra MD MCH (RBC) [Entitic mass] 31.6 pg Normal 25.2-33.5 [facility] Comment on above: Performed By: #### O SMO, LD, MG, JESUS, TSHX, LIVP, B12FOL, LACTIC, FT4, BMP #### [address] [id number] Envelope Folding Machine Adjuster: Tato Ibarra MD MCHC (RBC) [Mass/Vol] 34.1 g/dL Normal 28.4-34.8 [facility] Comment on above: Performed By: #### O SMO, LD, MG, JESUS, TSHX, LIVP, B12FOL, LACTIC, FT4, BMP #### [address] [id number] Envelope Folding Machine Adjuster: Tato Ibarra MD MCV (RBC) [Entitic vol] 92.6 fL Normal 82.6-102.9 [facility] Comment on above: Performed By: #### O SMO, LD, MG, JESUS, TSHX, LIVP, B12FOL, LACTIC, FT4, BMP #### [address] [address] Envelope Folding Machine Adjuster: Tato Ibarra MD NRBC Automated 0.0 per 100 WBC Normal 0.0 [facility] Comment on above: Performed By: #### O SMO, LD, MG, JESUS, TSHX, LIVP, B12FOL, LACTIC, FT4, BMP #### [facility] [employer] [address] [place] [address] [phone] Envelope Folding Machine Adjuster: Tato Ibarra MD Platelet mean volume (Bld) [Entitic vol] 9.5 fL Normal 8.1-13.5 [facility] Comment on above: Performed By: #### O SMO, LD, MG, JESUS, TSHX, LIVP, B12FOL, LACTIC, FT4, BMP #### [address] [id number] Envelope Folding Machine Adjuster: Tato Ibarra MD Platelets (Bld) [#/Vol] 222 10*3/uL Normal 138-453 [facility] Comment on above: Performed By: #### O SMO, LD, MG, JESUS, TSHX, LIVP, B12FOL, LACTIC, FT4, BMP #### [address] [address] Envelope Folding Machine Adjuster: Tato Ibarra MD RBC (Bld) [#/Vol] 3.23 10*6/uL Low 3.95-5.11 [facility] Comment on above: Performed By: #### O SMO, LD, MG, JESUS, TSHX, LIVP, B12FOL, LACTIC, FT4, BMP #### [place] [address] Envelope Folding Machine Adjuster: Tato Ibarra MD WBC (Bld) [#/Vol] 6.5 10*3/uL Normal 3.5-11.3 [facility] Comment on above: Performed By: #### O SMO, LD, MG, JESUS, TSHX, LIVP, B12FOL, LACTIC, FT4, BMP #### [place] [address] Envelope Folding Machine Adjuster: Tato Ibarra MD Abs. Basophil 0.03 k/uL Normal 0.00-0.20 [facility] Comment on above: Performed By: #### O SMO, LD, MG, JESUS, TSHX, LIVP, B12FOL, LACTIC, FT4, BMP #### [place] [address] Envelope Folding Machine Adjuster: Tato Ibarra MD Abs.Imm.Granulocyte <0.03 Normal 0.00-0.30 [facility] Comment on above: Performed By: #### O SMO, LD, MG, JESUS, TSHX, LIVP, B12FOL, LACTIC, FT4, BMP #### [place] [address] Envelope Folding Machine Adjuster: Tato Ibarra MD Abs.Neutrophil (Seg) 2.72 k/uL Normal 1.50-8.10 [facility] Comment on above: Performed By: #### O SMO, LD, MG, JESUS, TSHX, LIVP, B12FOL, LACTIC, FT4, BMP #### [address] [address] Envelope Folding Machine Adjuster: Tato Ibarra MD Basophils/100 WBC (Bld) 1 % Normal 0-2 [facility] Comment on above: Performed By: #### O SMO, LD, MG, JESUS, TSHX, LIVP, B12FOL, LACTIC, FT4, BMP #### [place] [address] Envelope Folding Machine Adjuster: Tato Ibarra MD Eosinophils (Bld) [#/Vol] 0.14 10*3/uL Normal 0.00-0.44 [facility] Comment on above: Performed By: #### O SMO, LD, MG, JESUS, TSHX, LIVP, B12FOL, LACTIC, FT4, BMP #### [place] [address] Envelope Folding Machine Adjuster: Tato Ibarra MD Eosinophils/100 WBC (Bld) 3 % Normal 1-4 [facility] Comment on above: Performed By: #### O SMO, LD, MG, JESUS, TSHX, LIVP, B12FOL, LACTIC, FT4, BMP #### [facility] [employer] [address] [place] [address] Envelope Folding Machine Adjuster: Tato Ibarra MD Erythrocyte distribution width (RBC) [Ratio] 18.6 % High 11.8-14.4 [facility] Comment on above: Performed By: #### O SMO, LD, MG, JESUS, TSHX, LIVP, B12FOL, LACTIC, FT4, BMP #### [facility] [employer] [address] [place] [address] Envelope Folding Machine Adjuster: Tato Ibarra MD Hematocrit (Bld) [Volume fraction] 32.5 % Low 36.3-47.1 [facility] Comment on above: Performed By: #### O SMO, LD, MG, JESUS, TSHX, LIVP, B12FOL, LACTIC, FT4, BMP #### [address] [address] Envelope Folding Machine Adjuster: Tato Ibarra MD Hemoglobin (Bld) [Mass/Vol] 10.6 g/dL Low 11.9-15.1 [facility] Comment on above: Performed By: #### O SMO, LD, MG, JESUS, TSHX, LIVP, B12FOL, LACTIC, FT4, BMP #### [address] [address] Envelope Folding Machine Adjuster: Tato Ibarra MD Immature granulocytes/100 WBC (Bld) 0 % Normal 0 [facility] Comment on above: Performed By: #### O SMO, LD, MG, JESUS, TSHX, LIVP, B12FOL, LACTIC, FT4, BMP #### [address] [address] Envelope Folding Machine Adjuster: Tato Ibarra MD Lymphocytes (Bld) [#/Vol] 1.44 10*3/uL Normal 1.10-3.70 [facility] Comment on above: Performed By: #### O SMO, LD, MG, JESUS, TSHX, LIVP, B12FOL, LACTIC, FT4, BMP #### [facility] [address] [place] [phone] Envelope Folding Machine Adjuster: Tato Ibarra MD Lymphocytes/100 WBC (Bld) 29 % Normal 24-43 [facility] Comment on above: Performed By: #### O SMO, LD, MG, JESUS, TSHX, LIVP, B12FOL, LACTIC, FT4, BMP #### [facility] [address] [place] [address] [phone] Envelope Folding Machine Adjuster: Tato Ibarra MD MCH (RBC) [Entitic mass] 33.5 pg Normal 25.2-33.5 [facility] Comment on above: Performed By: #### O SMO, LD, MG, JESUS, TSHX, LIVP, B12FOL, LACTIC, FT4, BMP #### [address] [id number] Envelope Folding Machine Adjuster: Tato Ibarra MD MCHC (RBC) [Mass/Vol] 32.6 g/dL Normal 28.4-34.8 [facility] Comment on above: Performed By: #### O SMO, LD, MG, JESUS, TSHX, LIVP, B12FOL, LACTIC, FT4, BMP #### [address] [address] Envelope Folding Machine Adjuster: Tato Ibarra MD MCV (RBC) [Entitic vol] 102.8 fL Normal 82.6-102.9 [facility] Comment on above: Performed By: #### O SMO, LD, MG, JESUS, TSHX, LIVP, B12FOL, LACTIC, FT4, BMP #### [address] [address] Envelope Folding Machine Adjuster: Tato Ibarra MD Monocytes (Bld) [#/Vol] 0.54 10*3/uL Normal 0.10-1.20 [facility] Comment on above: Performed By: #### O SMO, LD, MG, JESUS, TSHX, LIVP, B12FOL, LACTIC, FT4, BMP #### [address] [address] Envelope Folding Machine Adjuster: Tato Ibarra MD Monocytes/100 WBC (Bld) 11 % Normal 3-12 [facility] Comment on above: Performed By: #### O SMO, LD, MG, JESUS, TSHX, LIVP, B12FOL, LACTIC, FT4, BMP #### [facility] [employer] [address] [place] [address] Envelope Folding Machine Adjuster: Tato Ibarra MD Neutrophil (Seg) 56 % Normal 36-65 [facility] Comment on above: Performed By: #### O SMO, LD, MG, JESUS, TSHX, LIVP, B12FOL, LACTIC, FT4, BMP #### [address] [address] Envelope Folding Machine Adjuster: Tato Ibarra MD NRBC Automated 0.0 per 100 WBC Normal 0.0 [facility] Comment on above: Performed By: #### O SMO, LD, MG, JESUS, TSHX, LIVP, B12FOL, LACTIC, FT4, BMP #### [address] [address] Envelope Folding Machine Adjuster: Tato Ibarra MD Platelet mean volume (Bld) [Entitic vol] 9.5 fL Normal 8.1-13.5 [facility] Comment on above: Performed By: #### O SMO, LD, MG, JESUS, TSHX, LIVP, B12FOL, LACTIC, FT4, BMP #### [address] [address] Envelope Folding Machine Adjuster: Tato Ibarra MD Platelets (Bld) [#/Vol] 220 10*3/uL Normal 138-453 [facility] Comment on above: Performed By: #### O SMO, LD, MG, JESUS, TSHX, LIVP, B12FOL, LACTIC, FT4, BMP #### [address] [address] Envelope Folding Machine Adjuster: Tato Ibarra MD RBC (Bld) [#/Vol] 3.16 10*6/uL Low 3.95-5.11 [facility] Comment on above: Performed By: #### O SMO, LD, MG, JESUS, TSHX, LIVP, B12FOL, LACTIC, FT4, BMP #### [address] [address] Envelope Folding Machine Adjuster: Tato Ibarra MD RBC morphology finding Nom (Bld) ANISOCYTOSIS PRESENT Normal [facility] Comment on above: Performed By: #### O SMO, LD, MG, JESUS, TSHX, LIVP, B12FOL, LACTIC, FT4, BMP #### [facility] [address] [place] [address] [phone] Envelope Folding Machine Adjuster: Tato Ibrara MD WBC (Bld) [#/Vol] 4.9 10*3/uL Normal 3.5-11.3 [facility] Comment on above: Performed By: #### O SMO, LD, MG, JESUS, TSHX, LIVP, B12FOL, LACTIC, FT4, BMP #### [facility] [address] [place] [address] [phone] Envelope Folding Machine Adjuster: Tato Ibarra MD CTA Abdominal vessels and Pe lvis vessels WO and W contrast [place] 01-01-2024 Radiology Study observation (narrative) [facility] [employer] Calcium, Ionicon 01-01-2024 Calcium [Moles/Vol] 1.13 mmol/L Normal 1.13-1.33 [facility] Comment on above: Performed By: #### O SMO, LD, MG, JESUS, TSHX, LIVP, B12FOL, LACTIC, FT4, BMP #### [facility] [address] [place] [address] [phone] Envelope Folding Machine Adjuster: Tato Ibarra MD Calcium, Ionizedon 4 Calcium.ionized (Bld) [Moles/Vol] 1.13 mmol/L 1.13 - 1.33 mmol/L [facility] [employer] EKG 12 LeadOrdered By: Omar Hoover on 01-01-2024 Atrial Rate 87 BPM [employer] Work Phone: P [place] 35 degrees [employer] Work Phone: P-R Interval 164 ms [employer] Work Phone: Q-T Interval 412 ms [employer] Work Phone: QRS Duration 82 ms [facility] Work Phone: QTc Calculation (Bazett) 495 ms [facility] [employer] Work Phone: R [place] 33 degrees [facility] Work Phone: T [place] 25 degrees ZHANNA [employer] Work Phone: Ventricular Rate 87 BPM [facility] [employer] Work Phone: [facility] [employer] Work Phone: EKG 12 Leadon 01-01-2024 Normal sinus rhythm Nonspecific ST and T wave abnormality Prolonged QT Abnormal ECG When compared with ECG of 31-DEC-2023 16:00, No significant change was found [facility] STOmar Olivier MD - 01/01/2024 Normal sinus rhythm Nonspecific ST and T wave abnormality Prolonged QT Abnormal ECG When compared with ECG of 31-DEC-2023 16:00, No significant change was found [facility] Fecal Lactoferrinon 01-01-20 Fecal Lactoferrin POSITIVE for fecal lactoferrin, a marker for fecal leukocytes and an indicator Abnormal [employer] [facility] Comment on above: Result Comment: of i ntestinal inflammation. Performed By: #### P TT, PT #### [facility] [address] [place] [address] [phone] Envelope Folding Machine Adjuster: Tato Ibarra MD Fecal lactoferrinon 01-01-20 Interpretation and review of laboratory results Abnormal [facility] Lactoferrin Ql (Stl) POSITIVE for fecal lactoferrin, a marker for fecal leukocytes and an indicator of intestinal inflammation. Abnormal NEGATIVE for fecal lactoferrin. [facility] Glucose,Whole Bloodon 2023 Glucose [Mass/Vol] 111 mg/dL High 65-105 [facility] Hemoglobin and Hematocriton 01-01-2024 Hematocrit (Bld) [Volume fraction] 24.2 % Low 36.3 - 47.1 % [facility] Hemoglobin (Bld) [Mass/Vol] 7.7 g/dL Low 11.9 - 15.1 g/dL [facility] Interpretation and review of laboratory results Abnormal [facility] Hematocrit (Bld) [Volume fraction] DUPLICATE ORDER 36.3 - 47.1 % [facility] Hemoglobin (Bld) [Mass/Vol] DUPLICATE ORDER 11.9 - 15.1 g/dL [facility] Hematocrit (Bld) [Volume fraction] 31.8 % Low 36.3 - 47.1 % [facility] Hemoglobin (Bld) [Mass/Vol] 10.3 g/dL Low 11.9 - 15.1 g/dL [facility] Interpretation and review of laboratory results Abnormal [facility] Hepatic Function Panelon Albumin [Mass/Vol] 2.8 g/dL Low 3.5 - 5.2 g/dL [facility] Albumin/Globulin [Mass ratio] 1.0 {ratio} 1.0 - 2.5 [facility] ALP [Catalytic activity/Vol] 161 U/L High 35 - 104 U/L [facility] ALT [Catalytic activity/Vol] 10 U/L 10 - 35 U/L [facility] AST [Catalytic activity/Vol] 40 U/L High 10 - 35 U/L [facility] Bilirubin [Mass/Vol] 0.3 mg/dL 0.00 - 1.20 mg/ dL [facility] Bilirubin.direct [Mass/Vol] mg/dL 0.0 - 0.2 mg/dL [facility] Bilirubin.indirect [Mass/Vol] Can not be calculated 0.0 - 1.0 mg/dL [facility] Globulin (S) [Mass/Vol] 2.2 g/dL [facility] Protein [Mass/Vol] 5.0 g/dL Low 6.6 - 8.7 g/dL [facility] Hgb/Hcton 01-01-2024 Hematocrit (Bld) [Volume fraction] 24.2 % Low 36.3-47.1 [facility] Comment on above: Performed By: #### O SMO, LD, MG, JESUS, TSHX, LIVP, B12FOL, LACTIC, FT4, BMP #### [facility] [address] [place] [id number] Envelope Folding Machine Adjuster: Tato Ibarra MD Hemoglobin (Bld) [Mass/Vol] 7.7 g/dL Low 11.9-15.1 [facility] Comment on above: Performed By: #### O SMO, LD, MG, JESUS, TSHX, LIVP, B12FOL, LACTIC, FT4, BMP #### [facility] [employer] [address] [place] [phone] Envelope Folding Machine Adjuster: Tato Ibarra MD Hematocrit DUPLICATE ORDER Normal 36.3-47.1 [facility] Comment on above: Performed By: #### O SMO, LD, MG, JESUS, TSHX, LIVP, B12FOL, LACTIC, FT4, BMP #### [facility] [employer] [address] [place] [phone] Envelope Folding Machine Adjuster: Tato Ibarra MD Hemoglobin DUPLICATE ORDER Normal 11.9-15.1 [facility] Comment on above: Performed By: #### O SMO, LD, MG, JESUS, TSHX, LIVP, B12FOL, LACTIC, FT4, BMP #### [facility] [address] [place] [phone] Envelope Folding Machine Adjuster: Tato Ibarra MD Hematocrit (Bld) [Volume fraction] 31.8 % Low 36.3-47.1 [facility] Comment on above: Performed By: #### O SMO, LD, MG, JESUS, TSHX, LIVP, B12FOL, LACTIC, FT4, BMP #### [facility] [address] [place] [phone] Envelope Folding Machine Adjuster: Tato Ibarra MD Hemoglobin (Bld) [Mass/Vol] 10.3 g/dL Low 11.9-15.1 [facility] Comment on above: Performed By: #### O SMO, LD, MG, JESUS, TSHX, LIVP, B12FOL, LACTIC, FT4, BMP #### [employer] [facility] [address] [place] [phone] Envelope Folding Machine Adjuster: Tato Ibarra MD IR EMBOLIZATION HEMORRHAGEon 01-01-2024 Radiology Study observation (narrative) [facility] Lactate, Sepsison 01-01-2024 Lactic Acid, Sepsis, Whole Blood 0.9 mmol/L 0.5 - 1.9 mmol/L [facility] Lactic Acid,Sep Wbld 0.9 mmol/L Normal 0.5-1.9 [facility] Comment on above: Performed By: #### O SMO, LD, MG, JESUS, TSHX, LIVP, B12FOL, LACTIC, FT4, BMP #### [employer] [address] [place] [phone] Envelope F[employer] Machine Adjuster: Tato Ibarra MD Liver Profileon 01-01-2024 Albumin [Mass/Vol] 2.8 g/dL Low 3.5-5.2 [facility] Comment on above: Performed By: #### O SMO, LD, MG, JESUS, TSHX, LIVP, B12FOL, LACTIC, FT4, BMP #### [employer] [address] [place] [address] Envelope Folding Machine Adjuster: Tato Ibarra MD Albumin/Glob Ratio 1.0 Normal 1.0-2.5 [facility] Comment on above: Performed By: #### O SMO, LD, MG, JESUS, TSHX, LIVP, B12FOL, LACTIC, FT4, BMP #### [employer] [address] [place] [address] Envelope [employer] Machine Adjuster: Tato Ibarra MD Alkaline Phos 161 U/L High 35-104 [facility] Comment on above: Performed By: #### O SMO, LD, MG, JESUS, TSHX, LIVP, B12FOL, LACTIC, FT4, BMP #### [employer] [address] [place] [phone] Envelope [employer] Machine Adjuster: Tato Ibarra MD ALT [Catalytic activity/Vol] 10 U/L Normal [address] [place] [address] Comment on above: Performed By: #### O SMO, LD, MG, JESUS, TSHX, LIVP, B12FOL, LACTIC, FT4, BMP #### [address] [address] Envelope [employer] Machine Adjuster: Tato Ibarra MD AST [Catalytic activity/Vol] 40 U/L High [address] [place] [address] Comment on above: Performed By: #### O SMO, LD, MG, JESUS, TSHX, LIVP, B12FOL, LACTIC, FT4, BMP #### [address] [address] Envelope [employer] Adjuster: Tato Ibarra MD Bilirubin [Mass/Vol] 0.3 mg/dL Normal 0.00-1.20 [facility] Comment on above: Performed By: #### O SMO, LD, MG, JESUS, TSHX, LIVP, B12FOL, LACTIC, FT4, BMP #### [address] [address] Envelope [employer] Machine Adjuster: Tato Ibarra MD Bilirubin, Indirect Can not be calculated Normal 0.0-1.0 [facility] Comment on above: Performed By: #### O SMO, LD, MG, JESUS, TSHX, LIVP, B12FOL, LACTIC, FT4, BMP #### [facility] [address] [place] [phone] Envelope [employer] Machine Adjuster: Tato Ibarra MD Bilirubin.indirect [Mass/Vol] mg/dL Normal 0.0-0.2 [facility] Comment on above: Performed By: #### O SMO, LD, MG, JESUS, TSHX, LIVP, B12FOL, LACTIC, FT4, BMP #### [address] [address] Envelope [employer] Machine Adjuster: Tato Ibarra MD Globulin (S) [Mass/Vol] 2.2 g/dL Normal [facility] Comment on above: Performed By: #### O SMO, LD, MG, JESUS, TSHX, LIVP, B12FOL, LACTIC, FT4, BMP #### [facility] [address], [place] [phone] Envelope [employer] Machine Adjuster: Tato Ibarra MD Protein [Mass/Vol] 5.0 g/dL Low 6.6-8.7 [facility] Comment on above: Performed By: #### O SMO, LD, MG, JESUS, TSHX, LIVP, B12FOL, LACTIC, FT4, BMP #### [facility] [address] [place] [address] [phone] Envelope [employer] Machine Adjuster: Tato Ibarra MD MRSA, DNA, Nasalon Specimen Description .NASAL SWAB Normal [facility] Comment on above: Performed By: #### O SMO, LD, MG, JESUS, TSHX, LIVP, B12FOL, LACTIC, FT4, BMP #### [facility] [address] [place] [address] [phone] Envelope [employer] Machine Adjuster: Tato Ibarra MD Magnesiumon 01-01-2024 Magnesium [Mass/Vol] 2.0 mg/dL 1.6 - 2.6 mg/dL [facility] Magnesium [Mass/Vol] 2.0 mg/dL Normal 1.6-2.6 [facility] Comment on above: Performed By: #### O SMO, LD, MG, JESUS, TSHX, LIVP, B12FOL, LACTIC, FT4, BMP #### [facility] [address] [place] [address] [phone] Envelope [employer] Machine Adjuster: Tato Ibarra MD No Panel Informationon 12-31 [facility] Boundary Interpretation and review of laboratory results Abnormal [facility] POC Glucose Fingerstickon Glucose [Mass/Vol] 111 mg/dL High 65 - 105 mg/dL [facility] Interpretation and review of laboratory results Abnormal [facility] PREVIOUS SPECIMENon 01-01-20 24 [facility] PTon 01-01-2024 INR Coag (PPP) [Relative time] 0.9 {INR} Normal [facility] Comment on above: Result Comment: Therapeutic Range: Moderate Anticoagulant Intensity: INR = 2.0-3.0 High Anticoagulant Intensity: INR = 2.5-3.5 Performed By: #### P TT, PT #### [employer] [address] [place] [address] [phone] Envelope [employer] Adjuster: Tato Ibarra MD PT Coag (PPP) [Time] 12.3 s Normal 11.7-14.9 [facility] Comment on above: Performed By: #### P TT, PT #### [employer] [address] [place] [id number] Envelope Folding Machine Adjuster: Tato Ibarra MD [employer] 01-01-2024 INR Coag (PPP) [Relative time] 0.9 {INR} [facility] Comment on above: Therapeutic Range: Moderate Anticoagulant Intensity: INR = 2.0-3.0 High Anticoagulant Intensity: INR = 2.5-3.5 PT Coag (PPP) [Time] 12.3 s [facility] Type + Screenon 01-01-2024 Type + Screen Sample Expiration 01/03/2024,2359 Arm Band Number [id number] ABO/Rh(D) O NEGATIVE Antibody Screen NEGATIVE Unit Number [id number] Blood Component Type Leukocyte Reduced Red Cell Unit Division 00 Status of Unit TRANSFUSED Transfusion Status OK TO TRANSFUSE Crossmatch Result COMPATIBLE Unit Number [id number] Blood Component Type Leukocyte Reduced Red Cell Unit Division 00 Status of Unit TRANSFUSED Transfusion Status OK TO TRANSFUSE Crossmatch Result COMPATIBLE Normal [facility] Comment on above: Performed By: #### P TT, PT #### [employer] [address] [place] [id number] Envelope Folding Machine Adjuster: Tato Ibarra MD APTTon 12-31-2023 aPTT Coag (Bld) [Time] 27.6 s [facility] Comment on above: IV Heparin Therapy Range: 66.0-92.0 sec aPTT Coag (Bld) [Time] 27.6 s Normal 23.0-36.5 [facility] Comment on above: Result Comment: IV Heparin Therapy Range: 66.0-92.0 sec Performed By: #### O SMO, LD, MG, JESUS, TSHX, LIVP, B12FOL, LACTIC, FT4, BMP #### [employer] [address] [place] [address] [phone] Envelope Folding Machine Adjuster: Tato Ibarra MD aPTT Coag (Bld) [Time] 27.8 s [facility] Comment on above: IV Heparin Therapy Range: 66.0-92.0 sec aPTT Coag (Bld) [Time] 27.8 s Normal 23.0-36.5 [facility] Comment on above: Result Comment: IV Heparin Therapy Range: 66.0-92.0 sec Performed By: #### O SMO, LD, MG, JESUS, TSHX, LIVP, B12FOL, LACTIC, FT4, BMP #### [employer] [address] [place] [address] [phone] Envelope Folding Machine Adjuster: Tato Ibarra MD B12/Folate Panelon Cobalamin (Vitamin B12) [Mass/Vol] 271 pg/mL Normal 232-1245 [facility] Comment on above: Performed By: #### P TT, PT #### [employer] [address] [place] [address] [phone] Envelope Folding Machine Adjuster: Tato Ibarra MD Folic Acid 5.4 ng/mL Normal 4.8-24.2 [facility] Comment on above: Performed By: #### P TT, PT #### [employer] [address] [place] [address] 48691 Envelope Folding Machine Adjuster: Tato Ibarra MD BLOOD BANK SPECIMENon [address] [facility] Basic Metabolic Panelon 08-0 Anion gap [Moles/Vol] 10 mmol/L 9 - 16 mmol/L [facility] Calcium [Mass/Vol] 8.5 mg/dL Low 8.6 - 10.4 mg/dL [facility] Chloride [Moles/Vol] 105 mmol/L 98 - 107 mmol/L [facility] CO2 [Moles/Vol] 20 mmol/L 20 - 31 mmol/L [facility] Creatinine [Mass/Vol] 0.4 mg/dL Low 0.50 - 0.90 mg/dL [facility] Est, Glom Filt Rate - PINF [facility] Comment on above: These results are not intended for use [...] following therapy that affects renal tubular secretion. Glucose [Mass/Vol] 89 mg/dL 74 - 99 mg/dL [facility] Potassium [Moles/Vol] 3.7 mmol/L 3.7 - 5.3 mmol/L [facility] Sodium [Moles/Vol] 135 mmol/L Low 136 - 145 mmol/L [facility] Urea nitrogen [Mass/Vol] 2 mg/dL Low 6 - 20 mg/dL [facility] Basic Metabolic Profon 12-30 Anion gap [Moles/Vol] 10 mmol/L Normal 9-16 [facility] Comment on above: Performed By: #### O SMO, LD, MG, JESUS, TSHX, LIVP, B12FOL, LACTIC, FT4, BMP #### [facility] [employer] [facility] [place] [address] Envelope Folding Machine Adjuster: Tato Ibarra MD Calcium [Mass/Vol] 8.5 mg/dL Low 8.6-10.4 [facility] Comment on above: Performed By: #### O SMO, LD, MG, JESUS, TSHX, LIVP, B12FOL, LACTIC, FT4, BMP #### [address] [phone] Envelope Folding Machine Adjuster: Tato Ibarra MD Chloride [Moles/Vol] 105 mmol/L Normal 98-107 [facility] Comment on above: Performed By: #### O SMO, LD, MG, JESUS, TSHX, LIVP, B12FOL, LACTIC, FT4, BMP #### [address] [address] Envelope F[employer] Machine Adjuster: Tato Ibarra MD CO2 [Moles/Vol] 20 mmol/L Normal 20-31 [facility] Comment on above: Performed By: #### O SMO, LD, MG, JESUS, TSHX, LIVP, B12FOL, LACTIC, FT4, BMP #### [address] [phone] En[employer] Machine Adjuster: Tato Ibarra MD Creatinine [Mass/Vol] 0.4 mg/dL Low 0.50-0.90 [facility] Comment on above: Performed By: #### O SMO, LD, MG, JESUS, TSHX, LIVP, B12FOL, LACTIC, FT4, BMP #### [address] [phone] [employer] Machine Adjuster: Tato Ibarra MD GFR/1.73 sq M.predicted among non-blacks MDRD (S/P/Bld) [Vol rate/Area] mL/min/{1.73_m2} Normal >60 [facility] Comment on above: Result Comment: These results [...] TSHX, LIVP, B12FOL, LACTIC, FT4, BMP #### [facility] [address] [place] [address] [phone] Envelope Folding Machine Adjuster: Tato Ibarra MD Glucose [Mass/Vol] 89 mg/dL Normal 74-99 [facility] Comment on above: Performed By: #### O SMO, LD, MG, JESUS, TSHX, LIVP, B12FOL, LACTIC, FT4, BMP #### [facility] [address] [place] [address] [phone] Envelope Folding Machine Adjuster: Tato Ibarra MD Potassium [Moles/Vol] 3.7 mmol/L Normal 3.7-5.3 [facility] Comment on above: Performed By: #### O SMO, LD, MG, JESUS, TSHX, LIVP, B12FOL, LACTIC, FT4, BMP #### [facility] [employer] [address] [place] [address] [phone] Envelope Folding Machine Adjuster: Tato Ibarra MD Sodium [Moles/Vol] 135 mmol/L Low 136-145 [facility] Comment on above: Performed By: #### O SMO, LD, MG, JESUS, TSHX, LIVP, B12FOL, LACTIC, FT4, BMP #### [facility] [address] [place] [address] [phone] Envelope Folding Machine Adjuster: Tato Ibarra MD Urea nitrogen [Mass/Vol] 2 mg/dL Low 6-20 [facility] Comment on above: Performed By: #### O SMO, LD, MG, JESUS, TSHX, LIVP, B12FOL, LACTIC, FT4, BMP #### [facility] [address] [place] [address] [phone] Envelope Folding Machine Adjuster: Tato Ibarra MD C DIFF TOXIN/ANTIGENon 12-30 C. difficile glutamate dehydrogenase and toxins A+B IA.rapid Ql (Stl) Negative NEGATIVE [facility] Comment on above: No C. difficile anti gen and Toxin Detected. Specimen Description .FECES [facility] C diff Ag + Toxinon 12-31-19 C diff Ag + Toxin Negative Normal NEG [facility] Comment on above: Result Comment: No C . difficile antigen and Toxin Detected. Performed By: #### P TT, PT #### [employer] [address] [place], [place] [phone] Envelope Folding Machine Adjuster: Tato Ibarra MD Specimen Description .FECES Normal [facility] Comment on above: Performed By: #### P TT, PT #### [employer] [facility] [address] [place], [place] [phone] Envelope Folding Machine Adjuster: Tato Ibarra MD CBC with Auto Differentialon 12-31-2023 Basophils (Bld) [#/Vol] 0.03 10*3/uL [facility] Basophils/100 WBC (Bld) 1 % 0 - 2 % [facility] Eosinophils (Bld) [#/Vol] 0.12 10*3/uL [facility] Eosinophils/100 WBC (Bld) 2 % 1 - 4 % [facility] Erythrocyte distribution width (RBC) [Ratio] 18.8 % High 11.8 - 14.4 % [facility] Hematocrit (Bld) [Volume fraction] 33.2 % Low 36.3 - 47.1 % [facility] Hemoglobin (Bld) [Mass/Vol] 10.9 g/dL Low 11.9 - 15.1 g/dL [facility] Immature granulocytes (Bld) [#/Vol] 0.03 10*3/uL [facility] Immature granulocytes/100 WBC (Bld) 1 % High 0 [facility] Interpretation and review of laboratory results Abnormal [facility] Lymphocytes/100 WBC (Bld) 27 % 24 - 43 % [facility] Lymphocytes/100 WBC (Bld) 1.41 % [facility] MCH (RBC) [Entitic mass] 34.1 pg High 25.2 - 33.5 pg [facility] MCHC (RBC) [Mass/Vol] 32.8 g/dL 28.4 - 34.8 g/dL [facility] MCV (RBC) [Entitic vol] 103.8 fL High 82.6 - 102.9 fL [facility] Monocytes/100 WBC (Bld) 9 % 3 - 12 % [facility] Monocytes/100 WBC (Bld) 0.44 % [facility] Neutrophils/100 WBC (Bld) 60 % 36 - 65 % [facility] Nucleated RBC/100 WBC (Bld) [Ratio] 0.0 % 0.0 per 100 WBC [facility] Platelet mean volume (Bld) [Entitic vol] 9.2 fL 8.1 - 13.5 fL [facility] Platelets (Bld) [#/Vol] 197 10*3/uL [facility] RBC (Bld) [#/Vol] 3.20 10*6/uL Low 3.95 - 5.11 m/uL [facility] RBC (Bld) [#/Vol] ANISOCYTOSIS PRESENT [facility] RBC (Bld) [#/Vol] MACROCYTOSIS PRESENT [facility] Segmented neutrophils/100 WBC (Bld) 3.14 % [facility] WBC other (Bld) [#/Vol] 5.2 [facility] CBC with Diffon 12-31-2023 Abs. Basophil 0.03 k/uL Normal 0.00-0.20 [facility] Comment on above: Performed By: #### O SMO, LD, MG, JESUS, TSHX, LIVP, B12FOL, LACTIC, FT4, BMP #### [employer] [facility] [place] [address] Envelope Folding Machine Adjuster: Tato Ibarra MD Abs.Imm.Granulocyte 0.03 k/uL Normal 0.00-0.30 [facility] Comment on above: Performed By: #### O SMO, LD, MG, JESUS, TSHX, LIVP, B12FOL, LACTIC, FT4, BMP #### [employer] [facility] [place], [place] [phone] Envelope Folding Machine Adjuster: Tato Ibarra MD Abs.Neutrophil (Seg) 3.14 k/uL Normal 1.50-8.10 [facility] Comment on above: Performed By: #### O SMO, LD, MG, JESUS, TSHX, LIVP, B12FOL, LACTIC, FT4, BMP #### [address] [address] Envelope Folding Machine Adjuster: Tato Ibarra MD Basophils/100 WBC (Bld) 1 % Normal 0-2 [facility] Comment on above: Performed By: #### O SMO, LD, MG, JESUS, TSHX, LIVP, B12FOL, LACTIC, FT4, BMP #### [place] [address] Envelope Folding Machine Adjuster: Tato Ibarra MD Eosinophils (Bld) [#/Vol] 0.12 10*3/uL Normal 0.00-0.44 [facility] Comment on above: Performed By: #### O SMO, LD, MG, JESUS, TSHX, LIVP, B12FOL, LACTIC, FT4, BMP #### [place] [address] Envelope Folding Machine Adjuster: Tato Ibarra MD Eosinophils/100 WBC (Bld) 2 % Normal 1-4 [facility] Comment on above: Performed By: #### O SMO, LD, MG, JESUS, TSHX, LIVP, B12FOL, LACTIC, FT4, BMP #### [place] [address] Envelope F[employer] Machine Adjuster: Tato Ibarra MD Erythrocyte distribution width (RBC) [Ratio] 18.8 % High 11.8-14.4 [facility] Comment on above: Performed By: #### O SMO, LD, MG, JESUS, TSHX, LIVP, B12FOL, LACTIC, FT4, BMP #### [address] [address] Envelope Folding Machine Adjuster: Taot Ibarra MD Hematocrit (Bld) [Volume fraction] 33.2 % Low 36.3-47.1 [facility] Comment on above: Performed By: #### O SMO, LD, MG, JESUS, TSHX, LIVP, B12FOL, LACTIC, FT4, BMP #### [facility] [address] [place] [phone] Envelope Folding Machine Adjuster: Tato Ibarra MD Hemoglobin (Bld) [Mass/Vol] 10.9 g/dL Low 11.9-15.1 [facility] Comment on above: Performed By: #### O SMO, LD, MG, JESUS, TSHX, LIVP, B12FOL, LACTIC, FT4, BMP #### [address] [address] Envelope Folding Machine Adjuster: Tato Ibarra MD Immature granulocytes/100 WBC (Bld) 1 % High 0 [facility] Comment on above: Performed By: #### O SMO, LD, MG, JESUS, TSHX, LIVP, B12FOL, LACTIC, FT4, BMP #### [facility] [employer] [address] [place] [phone] Envelope Folding Machine Adjuster: Tato Ibarra MD Lymphocytes (Bld) [#/Vol] 1.41 10*3/uL Normal 1.10-3.70 [facility] Comment on above: Performed By: #### O SMO, LD, MG, JESUS, TSHX, LIVP, B12FOL, LACTIC, FT4, BMP #### [facility] [employer] [address] [place] [phone] Envelope Folding Machine Adjuster: Tato Ibarra MD Lymphocytes/100 WBC (Bld) 27 % Normal 24-43 [facility] Comment on above: Performed By: #### O SMO, LD, MG, JESUS, TSHX, LIVP, B12FOL, LACTIC, FT4, BMP #### [facility] [employer] [address] [place] [phone] Envelope Folding Machine Adjuster: Tato Ibarra MD MCH (RBC) [Entitic mass] 34.1 pg High 25.2-33.5 [facility] Comment on above: Performed By: #### O SMO, LD, MG, JESUS, TSHX, LIVP, B12FOL, LACTIC, FT4, BMP #### [facility] [employer] [address] [place] [phone] Envelope Folding Machine Adjuster: Tato Ibarra MD MCHC (RBC) [Mass/Vol] 32.8 g/dL Normal 28.4-34.8 [facility] Comment on above: Performed By: #### O SMO, LD, MG, JESUS, TSHX, LIVP, B12FOL, LACTIC, FT4, BMP #### [address] [address] Envelope Folding Machine Adjuster: Tato Ibarra MD MCV (RBC) [Entitic vol] 103.8 fL High 82.6-102.9 [facility] Comment on above: Performed By: #### O SMO, LD, MG, JESUS, TSHX, LIVP, B12FOL, LACTIC, FT4, BMP #### [facility] [employer] [address] [place] [phone] Envelope Folding Machine Adjuster: Tato Ibarra MD Monocytes (Bld) [#/Vol] 0.44 10*3/uL Normal 0.10-1.20 [facility] Comment on above: Performed By: #### O SMO, LD, MG, JESUS, TSHX, LIVP, B12FOL, LACTIC, FT4, BMP #### [facility] [employer] [address] [place] [address] [phone] Envelope Folding Machine Adjuster: Tato Ibarra MD Monocytes/100 WBC (Bld) 9 % Normal 3-12 [facility] Comment on above: Performed By: #### O SMO, LD, MG, JESUS, TSHX, LIVP, B12FOL, LACTIC, FT4, BMP #### [facility] [employer] [address] [place] [phone] Envelope Folding Machine Adjuster: Tato Ibarra MD Neutrophil (Seg) 60 % Normal 36-65 [facility] Comment on above: Performed By: #### O SMO, LD, MG, JESUS, TSHX, LIVP, B12FOL, LACTIC, FT4, BMP #### [address] [address] [employer]velope F[employer] Machine Adjuster: Tato Ibarra MD NRBC Automated 0.0 per 100 WBC Normal 0.0 [facility] Comment on above: Performed By: #### O SMO, LD, MG, JESUS, TSHX, LIVP, B12FOL, LACTIC, FT4, BMP #### [address] [address] Envelope Folding Machine Adjuster: Tato Ibarra MD Platelet mean volume (Bld) [Entitic vol] 9.2 fL Normal 8.1-13.5 [facility] Comment on above: Performed By: #### O SMO, LD, MG, JESUS, TSHX, LIVP, B12FOL, LACTIC, FT4, BMP #### [address] [address] Envelope Folding Machine Adjuster: Tato Ibarra MD Platelets (Bld) [#/Vol] 197 10*3/uL Normal 138-453 [facility] Comment on above: Performed By: #### O SMO, LD, MG, JESUS, TSHX, LIVP, B12FOL, LACTIC, FT4, BMP #### [address] [address] Envelope Folding Machine Adjuster: Tato Ibarra MD RBC (Bld) [#/Vol] 3.20 10*6/uL Low 3.95-5.11 [facility] Comment on above: Performed By: #### O SMO, LD, MG, JESUS, TSHX, LIVP, B12FOL, LACTIC, FT4, BMP #### [address] [address] [employer]velope [employer] Machine Adjuster: Taot Ibarra MD RBC morphology finding Nom (Bld) ANISOCYTOSIS PRESENT Normal [facility] Comment on above: Result Comment: MACR OCYTOSIS PRESENT Performed By: #### O SMO, LD, MG, JESUS, TSHX, LIVP, B12FOL, LACTIC, FT4, BMP #### [employer] [facility] [place], [place] [phone] Envelope Folding Machine Adjuster: Tato Ibarra MD WBC (Bld) [#/Vol] 5.2 10*3/uL Normal 3.5-11.3 [facility] Comment on above: Performed By: #### O SMO, LD, MG, JESUS, TSHX, LIVP, B12FOL, LACTIC, FT4, BMP #### [employer] [facility] [place], [place] [phone] Envelope Folding Machine Adjuster: Tato Ibarra MD CREATININE, RANDOM URINEon 0 12-31-2023 Creatinine (U) [Mass/Vol] 27.0 mg/dL Low 28.0 - 217.0 mg/dL [facility] Interpretation and review of laboratory results Abnormal [facility] Calcium, Ionicon 12-31-2023 Calcium [Moles/Vol] 1.23 mmol/L Normal 1.13-1.33 [facility] Comment on above: Performed By: #### O SMO, LD, MG, JESUS, TSHX, LIVP, B12FOL, LACTIC, FT4, BMP #### [employer] [address] [place] [phone] Envelope Folding Machine Adjuster: Tato Ibarra MD Calcium, Ionizedon Calcium.ionized (Bld) [Moles/Vol] 1.23 mmol/L 1.13 - 1.33 mmol/L [facility] Cardiac echo study Procedure on 12-31-2023 Ao Root Index 1.69 cm/m2 [facility] Aortic Root 3.3 cm [facility] AR Max Velocity PISA 3.1 m/s [facility] AR PHT 894.0 ms [facility] Ascending Aorta 4.1 cm [facility] Ascending Aorta Index 2.10 cm/m2 [facility] Area by Peak Velocity 2.5 cm2 [facility] Area by VTI 2.7 cm2 [facility] Mean Gradient 5 mmHg [facility] Mean Velocity 1.1 m/s [facility] AV Peak Gradient 11 mmHg [facility] Peak Velocity 1.6 m/s [facility] AV Velocity Ratio 0.69 [facility] AV VTI 32.0 cm [facility] SHANNA/BSA Peak Velocity 1.3 cm2/m2 [facility] SHANNA/BSA VTI 1.4 cm2/m2 [facility] Body surface area Derived from formula 1.99 m2 [facility] E/E' Lateral 10.00 [facility] E/E' Ratio (Averaged) 14.00 [facility] [employer] [facility] E/E' Septal 18.00 [facility] [employer] [facility] Est. RA Pressure 3 mmHg [facility] Fractional Shortening 2D 31 % 28 - 44 % [facility] [employer] [facility] Interpretation and review of laboratory results Abnormal [facility] [employer] [facility] IVC Proxmal 1.8 cm [facility] [employer] [facility] IVSd 1.1 cm 0.6 - 0.9 cm [facility] [place] Area 2C 19.7 cm2 [facility] Area 4C 17.3 cm2 [facility] Diameter 4.8 cm [facility] Major [place] 4.4 cm [facility] Minor [place] 4.6 cm [facility] Size Index 2.46 cm/m2 [facility] Volume BP 62 mL 22 - 52 mL [facility] Volume Index BP 32 ml/m2 16 - 34 ml/m2 [facility] Volume Index MOD A2C 34 ml/m2 16 - 34 ml/m2 [facility] Volume Index MOD A4C 28 ml/m2 16 - 34 ml/m2 [facility] Volume MOD A2C 66 mL 22 - 52 mL [facility] Volume MOD A4C 55 mL 22 - 52 mL [facility] [place]/AO Root Ratio 1.45 [facility] [employer] [facility] LV E' Lateral Velocity 9 cm/[facility] [employer] [facility]' Septal Velocity 5 cm/s [facility] [employer] [facility] LV EDV A2C 70 mL [facility] [employer] [facility] LV EDV A4C 123 mL [facility] EDV Index A2C 36 mL/m2 [facility] [facility] EDV Index A4C 63 mL/m2 [facility] [employer] [facility] LV Ejection Fraction A2C 47 % [facility] [employer] [facility] LV Ejection Fraction A4C 57 % [facility] [employer] [facility] LV ESV A2C 37 mL [facility] [employer] [facility] LV ESV A4C 53 mL [facility] [employer] [facility] ESV Index A2C 19 mL/m2 [facility] [employer] [facility] ESV Index A4C 27 mL/m2 [facility] [employer] [facility] LV Mass 2D 194.0 g Abnormal 67 - 162 g [facility] [employer] [facility] Mass 2D Index 99.5 g/m2 43 - 95 g/m2 [facility] [employer] LV RWT Ratio 0.46 [facility] [employer] HEALTH LVIDd 4.8 cm 3.9 - 5.3 cm [facility] [employer] HEALTH LVIDd Index 2.46 cm/m2 [facility] [employer] LVIDs 3.3 cm [facility] [employer] HE[facility] LVIDs Index 1.69 cm/m2 [facility] [employer] LVOT Area 3.8 cm2 [facility] [employer] LVOT Diameter 2.2 cm [facility] [employer] LVOT Mean Gradient 2 mmHg [facility] [employer] LVOT Peak Gradient 4 mmHg [facility] [employer] LVOT Peak Velocity 1.1 m/s [facility] [employer] [facility] LVOT Stroke Volume Index 44.6 mL/m2 [facility] [employer] [facility] LVOT SV 87.0 ml [facility] [employer] LVOT VTI 22.9 cm [facility] [employer] LVOT:AV VTI Index 0.72 [facility] [employer] LVPWd 1.1 cm 0.6 - 0.9 cm [facility] [employer] HE[facility] MV A Velocity 0.42 m/s [facility] [employer] MV E Velocity 0.90 m/s [facility] [employer] MV E Wave Deceleration Time 64.0 ms [facility] [employer] MV E/A 2.14 [facility] [employer] RV Free Wall Peak S' 7 cm/s [facility] RVSP 26 mmHg [facility] TR Max Velocity 2.40 m[facility] TR Peak Gradient 23 mmHg [facility] Left Ventricle: Normal left ventricular systolic function with a visually estimated EF of 55 - 60%. Left ventricle size is normal. Increased wall thickness. Findings consistent with mild asymmetric hypertrophy. Normal wall motion. Normal diastolic function. Aortic Valve: Trileaflet valve. Sclerosis of the aortic valve cusps. Mild to moderate regurgitation. Mitral Valve: Mild regurgitation with an eccentrically directed jet and may underestimate severity. Tricuspid Valve: Mild regurgitation. The estimated RVSP is 26 mmHg. Left Atrium: Left atrium is moderately dilated. Image quality is adequate. Procedure performed with the patient in a supine position. Left Ventricle Normal left ventricular systolic function with a visually estimated EF of 55 - 60%. Left ventricle size is normal. Increased wall thickness. Findings consistent with mild asymmetric hypertrophy. Normal wall motion. Normal diastolic function. Right Ventricle Right ventricle size is normal. Normal systolic function. TAPSE is abnormal. Left Atrium Left atrium is moderately dilated. Right Atrium Right atrium size is normal. IVC/SVC IVC diameter is less than or equal to 21 mm and decreases greater than 50% during inspiration; therefore the estimated right atrial pressure is normal (~3 mmHg). IVC size is normal. Mitral Valve Valve structure is normal. Mild regurgitation with an eccentrically directed jet and may underestimate severity. No stenosis noted. Tricuspid Valve Valve structure is normal. Mild regurgitation. No stenosis noted. The estimated RVSP is 26 mmHg. Aortic Valve Trileaflet valve. Sclerosis of the aortic valve cusps. Mild to moderate regurgitation. No stenosis. Pulmonic Valve Valve structure is normal. Trace regurgitation. No stenosis noted. Ascending Aorta Normal sized aortic root and ascending aorta. Pericardium No pericardial effusion. Septum No interatrial shunt visualized with color Doppler. Study Details Image quality: adequate. Procedure performed with the patient in a supine position, color flow Doppler was performed and pulse wave and/or continuous wave Doppler was performed. No contrast was given. [facility] CV CPACS [facility] Radiology Study observation (narrative) [facility] Creatinine,Random Uron 12-30 Creatinine [Mass/Vol] 27.0 mg/dL Low 28.0-217.0 [facility] Comment on above: Performed By: #### O SMO, LD, MG, JESUS, TSHX, LIVP, B12FOL, LACTIC, FT4, BMP #### [facility] [place] [address] Envelope Folding Machine Adjuster: Tato Ibarra MD Gastrointestinal Panel, [facility] 12-31-2023 Campylobacter sp DNA GOMEZ+probe Nom (Unsp spec) NEGATIVE: No Campylobacter spp. (jejuni or coli) DNA Detected NEGATIVE: No Campylobacter spp. (jejuni or coli) DNA Detecte [facility] E. coli enterotoxigenic eltA+estB genes GOMEZ+probe Ql (Stl) NEGATIVE: No Enterotoxigenic E. coli (ETEC) Heat-labile and heat-stable (LT/ST) DNA Detected NEGATIVE: No Enterotoxigenic E. coli (ETEC) Heat-labile and [facility] P. shigelloides DNA GOMEZ+probe Ql (Stl) Negative NEGATIVE: No Plesionomas shigelloides DNA Detected [facility] Salmonella sp DNA GOMEZ+probe Ql (Unsp spec) Negative NEGATIVE: No Salmonella spp. DNA Detected [facility] Shiga toxin stx gene GOMEZ+probe Nom (Unsp spec) Negative NEGATIVE: No Shiga toxin-producing gene(s) Detected [facility] Shigella sp DNA GOMEZ+probe Ql (Unsp spec) Negative NEGATIVE: No Shigella spp. / EIEC DNA Detected [facility] Specimen Description .FECES [facility] V. cholerae+parahaemoly ticus rfbL+trkH+tnaA genes GOMEZ+probe Ql (Stl) NEGATIVE: No Vibrio (V. vulnificus, V, parahaemolyticus and V. cholerae) DNA Detected NEGATIVE: No Vibrio (V. vulnificus, V, parahaemolyticus and [facility] Y. enterocolitica recN gene GOMEZ+probe Ql (Stl) Negative NEGATIVE: No Yersinia enterocolitica DNA Detected [facility] Hemoglobin and Hematocriton 12-31-2023 Hematocrit (Bld) [Volume fraction] 34.6 % Low 36.3 - 47.1 % [facility] Hemoglobin (Bld) [Mass/Vol] 11.3 g/dL Low 11.9 - 15.1 g/dL [facility] Interpretation and review of laboratory results Abnormal [facility] Hematocrit (Bld) [Volume fraction] 33.1 % Low 36.3 - 47.1 % [facility] Hemoglobin (Bld) [Mass/Vol] 10.8 g/dL Low 11.9 - 15.1 g/dL [facility] Interpretation and review of laboratory results Abnormal [facility] Hematocrit (Bld) [Volume fraction] 33.1 % Low 36.3 - 47.1 % [facility] Hemoglobin (Bld) [Mass/Vol] 11.2 g/dL Low 11.9 - 15.1 g/dL [facility] Interpretation and review of laboratory results Abnormal [facility] Hematocrit (Bld) [Volume fraction] 34.0 % Low 36.3 - 47.1 % [facility] Hemoglobin (Bld) [Mass/Vol] 11.1 g/dL Low 11.9 - 15.1 g/dL [facility] Interpretation and review of laboratory results Abnormal [facility] Hepatic Function Panelon Albumin [Mass/Vol] 3.0 g/dL Low 3.5 - 5.2 g/dL [facility] Albumin/Globulin [Mass ratio] 1.0 {ratio} 1.0 - 2.5 [facility] ALP [Catalytic activity/Vol] 174 U/L High 35 - 104 U/L [facility] ALT [Catalytic activity/Vol] 13 U/L 10 - 35 U/L [facility] AST [Catalytic activity/Vol] 47 U/L High 10 - 35 U/L [facility] Bilirubin [Mass/Vol] 0.4 mg/dL 0.00 - 1.20 mg/ dL [facility] Bilirubin.direct [Mass/Vol] 0.2 mg/dL 0.0 - 0.2 mg/dL [facility] Bilirubin.indirect [Mass/Vol] 0.2 mg/dL 0.0 - 1.0 mg/dL [facility] Globulin (S) [Mass/Vol] 2.2 g/dL [facility] Protein [Mass/Vol] 5.2 g/dL Low 6.6 - 8.7 g/dL [facility] Hgb/Hcton 12-31-2023 Hematocrit (Bld) [Volume fraction] 34.6 % Low 36.3-47.1 [facility] Comment on above: Performed By: #### O SMO, LD, MG, JESUS, TSHX, LIVP, B12FOL, LACTIC, FT4, BMP #### [employer] [facility] [address] [place] [address] [phone] [employer] Machine Adjuster: Tato Ibarra MD Hemoglobin (Bld) [Mass/Vol] 11.3 g/dL Low 11.9-15.1 [facility] Comment on above: Performed By: #### O SMO, LD, MG, JESUS, TSHX, LIVP, B12FOL, LACTIC, FT4, BMP #### [employer] [facility] [address] [place] [address] [phone] [employer] Adjuster: Tato Ibarra MD Hematocrit (Bld) [Volume fraction] 33.1 % Low 36.3-47.1 [facility] Comment on above: Performed By: #### O SMO, LD, MG, JESUS, TSHX, LIVP, B12FOL, LACTIC, FT4, BMP #### [employer] [facility] [address] [place], [place] [phone] [employer] Machine Adjuster: Tato Ibarra MD Hemoglobin (Bld) [Mass/Vol] 10.8 g/dL Low 11.9-15.1 [facility] Comment on above: Performed By: #### O SMO, LD, MG, JESUS, TSHX, LIVP, B12FOL, LACTIC, FT4, BMP #### [employer] [facility] [address] [place] [address] [phone] [employer] Adjuster: Tato Ibarra MD Hematocrit (Bld) [Volume fraction] 33.1 % Low 36.3-47.1 [facility] Comment on above: Performed By: #### P TT, PT #### [address] [address] [employer] Adjuster: Tato Ibarra MD Hemoglobin (Bld) [Mass/Vol] 11.2 g/dL Low 11.9-15.1 [facility] Comment on above: Performed By: #### P TT, PT #### [address] [address] [employer] Adjuster: Tato Ibarra MD Hematocrit (Bld) [Volume fraction] 34.0 % Low 36.3-47.1 [facility] Comment on above: Performed By: #### P TT, PT #### [address] [address] [employer] Adjuster: Tato Ibarra MD Hemoglobin (Bld) [Mass/Vol] 11.1 g/dL Low 11.9-15.1 [facility] Comment on above: Performed By: #### P TT, PT #### [address] [address] [employer] Adjuster: Tato Ibarra MD Iron Binding Cap.on 12-31-19 24 % Fe Saturation 11 % Low 20-55 [facility] Comment on above: Performed By: #### O SMO, LD, MG, JESUS, TSHX, LIVP, B12FOL, LACTIC, FT4, BMP #### [address] [address] [employer] Adjuster: Tato Ibarra MD Iron [Mass/Vol] 24 ug/dL Low 37-145 [facility] Comment on above: Performed By: #### O SMO, LD, MG, JESUS, TSHX, LIVP, B12FOL, LACTIC, FT4, BMP #### [address] [address] En[employer] Machine Adjuster: Tato Ibarra MD Total Fe Binding Cap 213 ug/dL Low 250-450 [facility] Comment on above: Performed By: #### O SMO, LD, MG, JESUS, TSHX, LIVP, B12FOL, LACTIC, FT4, BMP #### [employer] [facility] [address], [place] [phone] Envelope Folding Machine Adjuster: Tato Ibarra MD Unbound Fe Bind Cap 189 ug/dL Normal 112-347 [facility] Comment on above: Performed By: #### O SMO, LD, MG, JESUS, TSHX, LIVP, B12FOL, LACTIC, FT4, BMP #### [employer] [facility] [address], [place] [phone] En[employer] F[employer] Machine Adjuster: Tato Ibarra MD Iron and TIBCon 12-31-2023 Interpretation and review of laboratory results Abnormal [facility] Iron [Mass/Vol] 24 ug/dL Low 37 - 145 ug/dL [facility] Iron binding capacity [Mass/Vol] 213 ug/dL Low 250 - 450 ug/dL [facility] Iron saturation [Mass fraction] 11 % Low 20 - 55 % [facility] UIBC 189 ug/dL 112 - 347 ug/dL [facility] Lactate Dehydrogenaseon LDH [Catalytic activity/Vol] 168 U/L 135 - 214 U/L [facility] LDH [Catalytic activity/Vol] 168 U/L Normal 135-214 [facility] Comment on above: Performed By: #### O SMO, LD, MG, JESUS, TSHX, LIVP, B12FOL, LACTIC, FT4, BMP #### [employer] [facility] [address], [place] [phone] Envelope Folding Machine Adjuster: Tato Ibarra MD Lactic Acidon 12-31-2023 Lactic Acid, Whole Blood 1.0 mmol/L 0.7 - 2.1 mmol/L [facility] Lactic Acid,Whole Bl 1.0 mmol/L Normal 0.7-2.1 [facility] Comment on above: Performed By: #### O SMO, LD, MG, JESUS, TSHX, LIVP, B12FOL, LACTIC, FT4, BMP #### [facility] [employer] [address] [place] [phone] Envelope Folding Machine Adjuster: Tato Ibarra MD Liver Profileon 12-31-2023 Albumin [Mass/Vol] 3.0 g/dL Low 3.5-5.2 [facility] Comment on above: Performed By: #### O SMO, LD, MG, JESUS, TSHX, LIVP, B12FOL, LACTIC, FT4, BMP #### [facility] [employer] [address] [place] [address] [phone] En[employer] Machine Adjuster: Tato Ibarra MD Albumin/Glob Ratio 1.0 Normal 1.0-2.5 [facility] Comment on above: Performed By: #### O SMO, LD, MG, JESUS, TSHX, LIVP, B12FOL, LACTIC, FT4, BMP #### [facility] [employer] [address] [place] [phone] En[employer] Machine Adjuster: Tato Ibarra MD Alkaline Phos 174 U/L High 35-104 [facility] Comment on above: Performed By: #### O SMO, LD, MG, JESUS, TSHX, LIVP, B12FOL, LACTIC, FT4, BMP #### [facility] [address] [place] [phone] Envelope F[employer] Machine Adjuster: Tato Ibarra MD ALT [Catalytic activity/Vol] 13 U/L Normal 10-35 [facility] Comment on above: Performed By: #### O SMO, LD, MG, JESUS, TSHX, LIVP, B12FOL, LACTIC, FT4, BMP #### [facility] [address] [place] [phone] En[employer] Adjuster: Tato Ibarra MD AST [Catalytic activity/Vol] 47 U/L High 10-35 [facility] Comment on above: Performed By: #### O SMO, LD, MG, JESUS, TSHX, LIVP, B12FOL, LACTIC, FT4, BMP #### [address] [phone] [employer] Adjuster: Tato Ibarra MD Bilirubin [Mass/Vol] 0.4 mg/dL Normal 0.00-1.20 [facility] Comment on above: Performed By: #### O SMO, LD, MG, JESUS, TSHX, LIVP, B12FOL, LACTIC, FT4, BMP #### [address] [address] [employer] Adjuster: Tato Ibarra MD Bilirubin, Indirect 0.2 mg/dL Normal 0.0-1.0 [facility] Comment on above: Performed By: #### O SMO, LD, MG, JESUS, TSHX, LIVP, B12FOL, LACTIC, FT4, BMP #### [address] [address] [employer] Adjuster: Tato Ibarra MD Bilirubin.indirect [Mass/Vol] 0.2 mg/dL Normal 0.0-0.2 [facility] Comment on above: Performed By: #### O SMO, LD, MG, JESUS, TSHX, LIVP, B12FOL, LACTIC, FT4, BMP #### [address] [address] [employer] Adjuster: Tato Ibarra MD Globulin (S) [Mass/Vol] 2.2 g/dL Normal [facility] Comment on above: Performed By: #### O SMO, LD, MG, JESUS, TSHX, LIVP, B12FOL, LACTIC, FT4, BMP #### [address] [address] [employer] Adjuster: Tato Ibarra MD Protein [Mass/Vol] 5.2 g/dL Low 6.6-8.7 [facility] Comment on above: Performed By: #### O SMO, LD, MG, JESUS, TSHX, LIVP, B12FOL, LACTIC, FT4, BMP #### [facility] [address] [place] [phone] En[employer] F[employer] Machine Adjuster: Tato Ibarra MD Magnesiumon 12-31-2023 Magnesium [Mass/Vol] 1.9 mg/dL 1.6 - 2.6 mg/dL [facility] Magnesium [Mass/Vol] 1.9 mg/dL Normal 1.6-2.6 [facility] Comment on above: Performed By: #### O SMO, LD, MG, JESUS, TSHX, LIVP, B12FOL, LACTIC, FT4, BMP #### [facility] [address] [place] [phone] Envelope F[employer] Machine Adjuster: Tato Ibarra MD No Panel Informationon 12-30 [facility] Interpretation and review of laboratory results Abnormal [facility] Osmolalityon 12-31-2023 Osmolality [Osmolality] 278 mosm/kg [facility] Osmolality [Osmolality] 278 mosm/kg Normal 275-295 [facility] Comment on above: Performed By: #### O SMO, LD, MG, JESUS, TSHX, LIVP, B12FOL, LACTIC, FT4, BMP #### [facility] [address] [place] [phone] En[employer] Machine Adjuster: Tato Ibarra MD PTon 12-31-2023 INR Coag (PPP) [Relative time] 0.9 {INR} Normal [facility] Comment on above: Result Comment: Therapeutic Range: Moderate Anticoagulant Intensity: INR = 2.0-3.0 High Anticoagulant Intensity: INR = 2.5-3.5 Performed By: #### O SMO, LD, MG, JESUS, TSHX, LIVP, B12FOL, LACTIC, FT4, BMP #### [facility] [address] [place] [address] [phone] En[employer] F[employer] Machine Adjuster: Tato Ibarra MD PT Coag (PPP) [Time] 11.9 s Normal 11.7-14.9 [facility] Comment on above: Performed By: #### O SMO, LD, MG, JESUS, TSHX, LIVP, B12FOL, LACTIC, FT4, BMP #### [facility] [address] [place] [address] [phone] Envelope Folding Machine Adjuster: Tato Ibarra MD INR Coag (PPP) [Relative time] 0.9 {INR} Normal [facility] Comment on above: Result Comment: Therapeutic Range: Moderate Anticoagulant Intensity: INR = 2.0-3.0 High Anticoagulant Intensity: INR = 2.5-3.5 Performed By: #### O SMO, LD, MG, JESUS, TSHX, LIVP, B12FOL, LACTIC, FT4, BMP #### [facility] [address] [place] [phone] En[employer] Machine Adjuster: Tato Ibarra MD PT Coag (PPP) [Time] 11.8 s Normal 11.7-14.9 [facility] Comment on above: Performed By: #### O SMO, LD, MG, JESUS, TSHX, LIVP, B12FOL, LACTIC, FT4, BMP #### [facility] [address] [place], [place] [phone] En[employer] F[employer] Machine Adjuster: Tato Ibarra MD Phosphoruson 12-31-2023 Phosphate [Mass/Vol] 3.7 mg/dL 2.5 - 4.5 mg/dL [facility] Phosphorus, Inorg.on 024 Phosphorus, Inorg. 3.7 mg/dL Normal 2.5-4.5 [facility] Comment on above: Performed By: #### O SMO, LD, MG, JESUS, TSHX, LIVP, B12FOL, LACTIC, FT4, BMP #### [facility] [address] [place] [phone] En[employer] Machine Adjuster: Tato Ibarra MD Protime-INRon 12-31-2023 INR Coag (PPP) [Relative time] 0.9 {INR} [facility] Comment on above: Therapeutic Range: Moderate Anticoagulant Intensity: INR = 2.0-3.0 High Anticoagulant Intensity: INR = 2.5-3.5 PT Coag (PPP) [Time] 11.9 s [facility] INR Coag (PPP) [Relative time] 0.9 {INR} [facility] Comment on above: Therapeutic Range: Moderate Anticoagulant Intensity: INR = 2.0-3.0 High Anticoagulant Intensity: INR = 2.5-3.5 PT Coag (PPP) [Time] 11.8 s [facility] SODIUM, URINE, RANDOMon Sodium (U) [Moles/Vol] 121 mmol/L [facility] Comment on above: No normal range esta blished. Sodium, Random Uron 12-31-19 Sodium (U) [Moles/Vol] 121 mmol/L Normal [facility] Comment on above: Result Comment: No n ormal range established. Performed By: #### O SMO, LD, MG, JESUS, TSHX, LIVP, B12FOL, LACTIC, FT4, BMP #### [facility] [address] [place] [phone] En[employer] Machine Adjuster: Tato Ibarra MD Stool PCR Batteryon 12-31-19 Campylobacter sp PCR NEGATIVE: No Campylobacter spp. (jejuni or coli) DNA Detected Normal CAMNEG [facility] Comment on above: Performed By: #### P TT, PT #### [facility] [address] [place] [address] [phone] En[employer] Machine Adjuster: Tato Ibarra MD E coli enterotox PCR NEGATIVE: No Enterotoxigenic E. coli (ETEC) Heat-labile and heat-stable (LT/ST) Normal EECNEG [facility] Comment on above: Result Comment: DNA Detected Performed By: #### P TT, PT #### [facility] [address] [place] [phone] Envelope Folding Machine Adjuster: Tato Ibarra MD Plesiomonas sp PCR Negative Normal PLENEG [facility] Comment on above: Performed By: #### P TT, PT #### [address] [address] [employer] Adjuster: Tato Ibarra MD Salmonella sp PCR Negative Normal SALNEG [facility] Comment on above: Performed By: #### P TT, PT #### [address] [address] [employer] Adjuster: Tato Ibarra MD Shigatoxin gene PCR Negative Normal STXNEG [facility] Comment on above: Performed By: #### P TT, PT #### [address] [address] [employer] Adjuster: Tato Ibarra MD Shigella sp PCR Negative Normal SHINEG [facility] Comment on above: Performed By: #### P TT, PT #### [address] [address] [employer] Adjuster: Tato Ibarra MD Vibrio sp PCR NEGATIVE: No Vibrio (V. vulnificus, V, parahaemolyticus and V. cholerae) DNA Normal VIBNEG [facility] Comment on above: Result Comment: Dete cted Performed By: #### P TT, PT #### [address] [address] [employer] Adjuster: Tato Ibarra MD Yersinia gene PCR Negative Normal YERNEG [facility] Comment on above: Performed By: #### P TT, PT #### [address] [address] [employer] Adjuster: Tato Ibarra MD T4, Freeon 12-31-2023 Free T4 [Mass/Vol] 0.8 ng/dL Low 0.92 - 1.68 ng/dL [facility] Interpretation and review of laboratory results Abnormal [facility] TSH w/reflex to FT4on 2023 Thyroid Stim. Horm. 6.81 uIU/mL High 0.27-4.20 [facility] Comment on above: Performed By: #### O SMO, LD, MG, JESUS, TSHX, LIVP, B12FOL, LACTIC, FT4, BMP #### [address] [address] [employer] Adjuster: Tato Ibarra MD TSH with Reflexon 12-31-2023 TSH Qn 6.81 m[IU]/L High [facility] Thyroxine, Freeon 12-31-2023 Thyroxine, Free 0.8 ng/dL Low 0.92-1.68 [facility] Comment on above: Performed By: #### P TT, PT #### [address] [address] [employer] Adjuster: Tato Ibarra MD UA w/Reflex Cultureon 2023 Bilirubin, SemiQt,Ur Negative Normal NEG [facility] Comment on above: Performed By: #### O SMO, LD, MG, JESUS, TSHX, LIVP, B12FOL, LACTIC, FT4, BMP #### [address] [address] [employer] Adjuster: Tato Ibarra MD Blood, Urine Negative Normal NEG [facility] Comment on above: Performed By: #### O SMO, LD, MG, JESUS, TSHX, LIVP, B12FOL, LACTIC, FT4, BMP #### [address] [address] [employer] Adjuster: Tato Ibarra MD Clarity (U) Clear Normal CLEAR [facility] Comment on above: Performed By: #### O SMO, LD, MG, JESUS, TSHX, LIVP, B12FOL, LACTIC, FT4, BMP #### [address] [address] [employer] Adjuster: Tato Ibarra MD Color (U) Yellow Normal YEL [facility] Comment on above: Performed By: #### O SMO, LD, MG, JESUS, TSHX, LIVP, B12FOL, LACTIC, FT4, BMP #### [address] [address] [employer] Adjuster: Tato Ibarra MD Comment Microscopic exam not performed based on chemical results unless requested in Normal [facility] Comment on above: Result Comment: orig inal order. Performed By: #### O SMO, LD, MG, JESUS, TSHX, LIVP, B12FOL, LACTIC, FT4, BMP #### [address] [address] [employer] Adjuster: Tato Ibarra MD Glucose Ql (U) Negative Normal NEG [facility] Comment on above: Performed By: #### O SMO, LD, MG, JESUS, TSHX, LIVP, B12FOL, LACTIC, FT4, BMP #### [address] [address] [employer] Adjuster: Tato Ibarra MD Ketones Ql (U) Negative Normal NEG [facility] Comment on above: Performed By: #### O SMO, LD, MG, JESUS, TSHX, LIVP, B12FOL, LACTIC, FT4, BMP #### [facility] [address] [place] [phone] En[employer] Adjuster: Tato Ibarra MD Leukocyte esterase Test strip Ql (U) Negative Normal NEG [facility] Comment on above: Performed By: #### O SMO, LD, MG, JESUS, TSHX, LIVP, B12FOL, LACTIC, FT4, BMP #### [facility] [address] [place] [phone] [employer] Adjuster: Tato Ibarra MD Nitrite,Ur Negative [place] NEG [facility] Comment on above: Performed By: #### O SMO, LD, MG, JESUS, TSHX, LIVP, B12FOL, LACTIC, FT4, BMP #### [address] [phone] [employer] Adjuster: Tato Ibarra MD PH,Ur 5.5 Normal 5.0-8.0 [facility] Comment on above: Performed By: #### O SMO, LD, MG, JESUS, TSHX, LIVP, B12FOL, LACTIC, FT4, BMP #### [facility] [address] [place] [phone] En[employer] Adjuster: Tato Ibarra MD Protein Ql (U) Negative Normal NEG [facility] Comment on above: Performed By: #### O SMO, LD, MG, JESUS, TSHX, LIVP, B12FOL, LACTIC, FT4, BMP #### [facility] [address] [place] [address] [phone] [employer] Adjuster: Tato Ibarra MD Spec. Henniker,Ur 1.007 Normal 1.005-1.030 [facility] Comment on above: Performed By: #### O SMO, LD, MG, JESUS, TSHX, LIVP, B12FOL, LACTIC, FT4, BMP #### [facility] [address] [place] [address] [phone] [employer] Adjuster: Tato Ibarra MD Urobilinogen,Ur Normal Normal 0.0-1.0 [facility] Comment on above: Performed By: #### O SMO, LD, MG, JESUS, TSHX, LIVP, B12FOL, LACTIC, FT4, BMP #### [facility] [address] [place] [phone] Envelope [employer] Machine Adjuster: Tato Ibarra MD Urinalysis with Reflex to Cu ltureon 12-31-2023 Bilirubin Ql (U) Negative NEGATIVE [facility] [employer] Clarity (U) Clear Clear [facility] Color (U) Yellow Yellow [facility] Comment Microscopic exam not performed based on chemical results unless requested in original order. [facility] Glucose Test strip (U) [Mass/Vol] Negative NEGATIVE mg/dL [facility] Hemoglobin Auto test strip Ql (U) Negative NEGATIVE [facility] Ketones (U) [Mass/Vol] Negative NEGATIVE mg/dL [facility] Leukocyte esterase Test strip Ql (U) Negative NEGATIVE [facility] Nitrite Ql (U) Negative NEGATIVE [facility] pH (U) 5.5 [pH] 5.0 - 8.0 [facility] Protein (U) [Mass/Vol] Negative NEGATIVE mg/dL [facility] Specific gravity (U) [Rel density] 1.007 1.005 - 1.030 [facility] Urobilinogen Qn (U) Normal 0.0 - 1.0 EU/dL [facility] Vitamin B12 & Folateon 12-30 Cobalamin (Vitamin B12) [Mass/Vol] 271 pg/mL 232 - 1245 pg/mL [facility] Folate [Mass/Vol] 5.4 ng/mL 4.8 - 24.2 ng/mL [facility] Basophils Auto (Bld) [#/Vol] on 12-30-2023 Basophils (Bld) [#/Vol] 0.0 10 3/uL 0.0-0.1 [facility] Basophils/100 WBC Auto (Bld) on 12-30-2023 Basophils/100 WBC (Bld) 0.7 % 0.2-2.0 [facility] Eosinophils/100 WBC Auto (Bl d)on 12-30-2023 Eosinophils/100 WBC (Bld) 2.7 % 0.9-7.0 [facility] Erythrocyte distribution wid th Auto (RBC) [Ratio]on 12-30-2023 Erythrocyte distribution width (RBC) [Ratio] 15.0 % 11.0-15.0 [facility] Estimated glomerular filtrat ion rate (GFR) non- Americanon 12-30-2023 GFR/1.73 sq M.predicted among non-blacks MDRD (S/P/Bld) [Vol rate/Area] mL/min/{1.73_m2} >=60 [facility] Globulin Calc (S) [Mass/Vol] on 12-30-2023 Globulin (S) [Mass/Vol] 2.6 g/dL [facility] Hematocrit Auto (Bld) [Volum e fraction]on 12-30-2023 Hematocrit (Bld) [Volume fraction] 35.2 % Low 36.0-48.0 [facility] Hemoglobin [Mass/volume] in Bloodon 12-30-2023 Hemoglobin (Bld) [Mass/Vol] 11.8 g/dL Low 12.0-16.0 [facility] Hemoglobin and Hematocriton 12-30-2023 Hematocrit (Bld) [Volume fraction] 34.2 % Low 36.3 - 47.1 % [facility] Hemoglobin (Bld) [Mass/Vol] 11.0 g/dL Low 11.9 - 15.1 g/dL [facility] Interpretation and review of laboratory results Abnormal [facility] Hgb/Hcton 12-30-2023 Hematocrit (Bld) [Volume fraction] 34.2 % Low 36.3-47.1 [facility] Comment on above: Performed By: #### O SMO, LD, MG, JESUS, TSHX, LIVP, B12FOL, LACTIC, FT4, BMP #### [employer] [facility] [address] [place] [phone] Envelope [employer] Machine Adjuster: Tato Ibarra MD Hemoglobin (Bld) [Mass/Vol] 11.0 g/dL Low 11.9-15.1 [facility] Comment on above: Performed By: #### O SMO, LD, MG, JESUS, TSHX, LIVP, B12FOL, LACTIC, FT4, BMP #### [employer] [facility] [address] [place] [phone] Envelope [employer] Adjuster: Tato Ibarra MD Laboratory - Chemistry and C hemistry - challengeon 12-30-2023 Albumin [Mass/Vol] 1.9 g/dL Low 3.4-5.0 [facility] ALP [Catalytic activity/Vol] 149 U/L High 46-116 [facility] ALT [Catalytic activity/Vol] 18 U/L 14-59 [facility] AST [Catalytic activity/Vol] 34 U/L 15-37 [facility] Bilirubin [Mass/Vol] 0.3 mg/dL 0.2-1.0 [facility] Calcium [Mass/Vol] 8.3 mg/dL Low 8.5-10.1 [facility] Chloride [Moles/Vol] 107 mmol/L 98-107 [facility] CO2 [Moles/Vol] 25.6 mmol/L 21.0-32.0 [facility] Creatinine [Mass/Vol] 0.41 mg/dL Low 0.55-1.02 [facility] GFR/1.73 sq M.predicted MDRD (S/P/Bld) [Vol rate/Area] mL/min/{1.73_m2} >=60 [facility] Glucose [Mass/Vol] 85 mg/dL 74-106 [facility] Potassium [Moles/Vol] 3.2 mmol/L Low 3.5-5.1 [facility] Protein [Mass/Vol] 4.5 g/dL Low 6.4-8.2 [facility] Sodium [Moles/Vol] 141 mmol/L 136-145 [facility] Urea nitrogen [Mass/Vol] mg/dL Low 7.0-18.0 [facility] Urea nitrogen/Creatinine [Mass ratio] 2.4 mg/mg [facility] Laboratory - Hematology and Cell countson 12-30-2023 Immature granulocytes/100 WBC (Bld) 0.2 % 0.0-0.5 [facility] Leukocytes [#/volume] correc patty for nucleated erythrocytes in Blood by Automated counon 12-30-2023 WBC corrected for nucl RBC Auto (Bld) [#/Vol] 4.0 10 3/uL 4.0-11.0 [facility] Lymphocytes Auto (Bld) [#/Vo l]on 12-30-2023 Lymphocytes (Bld) [#/Vol] 1.3 10 3/uL 1.2-3.8 [facility] Lymphocytes/100 WBC Auto (Bl d)on 12-30-2023 Lymphocytes/100 WBC (Bld) 32.9 % 20.5-60.0 [facility] MCH Auto (RBC) [Entitic mass ]on 12-30-2023 MCH (RBC) [Entitic mass] 35.4 pg High 26.7-34.0 [facility] MCHC Auto (RBC) [Mass/Vol]on 12-30-2023 MCHC (RBC) [Mass/Vol] 33.2 g/dL 29.9-35.2 [facility] MCV Auto (RBC) [Entitic vol] on 12-30-2023 MCV (RBC) [Entitic vol] 106.7 fL High 81.0-99.0 [facility] Monocytes Auto (Bld) [#/Vol] on 12-30-2023 Monocytes (Bld) [#/Vol] 0.3 10 3/uL 0.3-0.8 [facility] Monocytes/100 WBC Auto (Bld) on 12-30-2023 Monocytes/100 WBC (Bld) 7.9 % 1.7-12.0 [facility] Neutrophils Auto (Bld) [#/Vo l]on 12-30-2023 Neutrophils (Bld) [#/Vol] 2.2 10 3/uL 1.4-6.5 [facility] Neutrophils/100 WBC Auto (Bl d)on 12-30-2023 Neutrophils/100 WBC (Bld) 55.6 % 43.0-75.0 [facility] No Panel Informationon 12-29 Eosinophils # (Auto) 0.1 10 3/uL 0.0-0.7 [facility] Immature Granulocyte # (Auto) 0.01 10 3/uL 0.00-0.03 [facility] Platelet mean volume Auto (B ld) [Entitic vol]on 12-30-2023 Platelet mean volume (Bld) [Entitic vol] 9.4 fL Low 9.5-13.5 [facility] Platelets Auto (Bld) [#/Vol] on 12-30-2023 Platelets (Bld) [#/Vol] 175 10 3/uL 150-450 [facility] RBC Auto (Bld) [#/Vol]on RBC (Bld) [#/Vol] 2.09 10 6/uL Low 4.20-5.40 [facility] Serum or plasma albumin/glob ulin mass ratioon 12-30-2023 Albumin/Globulin [Mass ratio] 0.7 {ratio} [facility] Serum or plasma anion gap de terminationon 12-30-2023 Anion gap [Moles/Vol] 11.6 mmol/L [facility] Basophils Auto (Bld) [#/Vol] on 12-29-2023 Basophils (Bld) [#/Vol] 0.0 10 3/uL 0.0-0.1 [facility] Basophils/100 WBC Auto (Bld) on 12-29-2023 Basophils/100 WBC (Bld) 0.8 % 0.2-2.0 [facility] Eosinophils/100 WBC Auto (Bl d)on 12-29-2023 Eosinophils/100 WBC (Bld) 1.4 % 0.9-7.0 [facility] Erythrocyte distribution wid th Auto (RBC) [Ratio]on 12-29-2023 Erythrocyte distribution width (RBC) [Ratio] 15.1 % High 11.0-15.0 [facility] Estimated glomerular filtrat ion rate (GFR) non- Americanon 12-29-2023 GFR/1.73 sq M.predicted among non-blacks MDRD (S/P/Bld) [Vol rate/Area] mL/min/{1.73_m2} >=60 [facility] Globulin Calc (S) [Mass/Vol] on 12-29-2023 Globulin (S) [Mass/Vol] 2.8 g/dL [facility] Hematocrit Auto (Bld) [Volum e fraction]on 12-29-2023 Hematocrit (Bld) [Volume fraction] 24.3 % Low 36.0-48.0 [facility] Hemoglobin [Mass/volume] in Bloodon 12-29-2023 Hemoglobin (Bld) [Mass/Vol] 8.1 g/dL Low 12.0-16.0 [facility] Laboratory - Chemistry and C hemistry - challengeon 12-29-2023 Albumin [Mass/Vol] 2.0 g/dL Low 3.4-5.0 [facility] ALP [Catalytic activity/Vol] 166 U/L High 46-116 [facility] ALT [Catalytic activity/Vol] 17 U/L 14-59 [facility] AST [Catalytic activity/Vol] 30 U/L 15-37 [facility] Bilirubin [Mass/Vol] 0.4 mg/dL 0.2-1.0 [facility] Calcium [Mass/Vol] 8.4 mg/dL Low 8.5-10.1 [facility] Chloride [Moles/Vol] 104 mmol/L 98-107 [facility] CO2 [Moles/Vol] 28.3 mmol/L 21.0-32.0 [facility] Creatinine [Mass/Vol] 0.52 mg/dL Low 0.55-1.02 [facility] GFR/1.73 sq M.predicted MDRD (S/P/Bld) [Vol rate/Area] mL/min/{1.73_m2} >=60 [facility] Glucose [Mass/Vol] 91 mg/dL 74-106 [facility] Potassium [Moles/Vol] 3.8 mmol/L 3.5-5.1 [facility] Protein [Mass/Vol] 4.8 g/dL Low 6.4-8.2 [facility] Sodium [Moles/Vol] 136 mmol/L 136-145 [facility] Urea nitrogen [Mass/Vol] 6.0 mg/dL Low 7.0-18.0 [facility] Urea nitrogen/Creatinine [Mass ratio] 11.5 mg/mg [facility] Laboratory - Hematology and Cell countson 12-29-2023 Immature granulocytes/100 WBC (Bld) 0.2 % 0.0-0.5 [facility] Leukocytes [#/volume] correc patty for nucleated erythrocytes in Blood by Automated counon 12-29-2023 WBC corrected for nucl RBC Auto (Bld) [#/Vol] 4.8 10 3/uL 4.0-11.0 [facility] Lymphocytes Auto (Bld) [#/Vo l]on 12-29-2023 Lymphocytes (Bld) [#/Vol] 1.7 10 3/uL 1.2-3.8 [facility] Lymphocytes/100 WBC Auto (Bl d)on 12-29-2023 Lymphocytes/100 WBC (Bld) 35.1 % 20.5-60.0 [facility] MCH Auto (RBC) [Entitic mass ]on 12-29-2023 MCH (RBC) [Entitic mass] 36.2 pg High 26.7-34.0 [facility] MCHC Auto (RBC) [Mass/Vol]on 12-29-2023 MCHC (RBC) [Mass/Vol] 33.5 g/dL 29.9-35.2 [facility] MCV Auto (RBC) [Entitic vol] on 12-29-2023 MCV (RBC) [Entitic vol] 108.2 fL High 81.0-99.0 [facility] Monocytes Auto (Bld) [#/Vol] on 12-29-2023 Monocytes (Bld) [#/Vol] 0.6 10 3/uL 0.3-0.8 [facility] Monocytes/100 WBC Auto (Bld) on 12-29-2023 Monocytes/100 WBC (Bld) 11.6 % 1.7-12.0 [facility] Neutrophils Auto (Bld) [#/Vo l]on 12-29-2023 Neutrophils (Bld) [#/Vol] 2.5 10 3/uL 1.4-6.5 [facility] Neutrophils/100 WBC Auto (Bl d)on 12-29-2023 Neutrophils/100 WBC (Bld) 50.9 % 43.0-75.0 [facility] No Panel Informationon 12-28 Eosinophils # (Auto) 0.1 10 3/uL 0.0-0.7 [facility] Immature Granulocyte # (Auto) 0.01 10 3/uL 0.00-0.03 [facility] Platelet mean volume Auto (B ld) [Entitic vol]on 12-29-2023 Platelet mean volume (Bld) [Entitic vol] 9.5 fL 9.5-13.5 [facility] Platelets Auto (Bld) [#/Vol] on 12-29-2023 Platelets (Bld) [#/Vol] 204 10 3/uL 150-450 [facility] RBC Auto (Bld) [#/Vol]on RBC (Bld) [#/Vol] 2.32 10 6/uL Low 4.20-5.40 [facility] Serum or plasma albumin/glob ulin mass ratioon 12-29-2023 Albumin/Globulin [Mass ratio] 0.7 {ratio} [facility] Serum or plasma anion gap de terminationon 12-29-2023 Anion gap [Moles/Vol] 7.5 mmol/L [facility] Basophils Auto (Bld) [#/Vol] on 12-28-2023 Basophils (Bld) [#/Vol] 0.0 10 3/uL 0.0-0.1 [facility] Basophils/100 WBC Auto (Bld) on 12-28-2023 Basophils/100 WBC (Bld) 0.3 % 0.2-2.0 [facility] Eosinophils/100 WBC Auto (Bl d)on 12-28-2023 Eosinophils/100 WBC (Bld) 0.2 % Low 0.9-7.0 [facility] Erythrocyte distribution wid th Auto (RBC) [Ratio]on 12-28-2023 Erythrocyte distribution width (RBC) [Ratio] 14.6 % 11.0-15.0 [facility] Estimated glomerular filtrat ion rate (GFR) non- Americanon 12-28-2023 GFR/1.73 sq M.predicted among non-blacks MDRD (S/P/Bld) [Vol rate/Area] mL/min/{1.73_m2} >=60 [facility] Globulin Calc (S) [Mass/Vol] on 12-28-2023 Globulin (S) [Mass/Vol] 3.4 g/dL [facility] Hematocrit Auto (Bld) [Volum e fraction]on 12-28-2023 Hematocrit (Bld) [Volume fraction] 27.1 % Low 36.0-48.0 [facility] Hemoglobin [Mass/volume] in Bloodon 12-28-2023 Hemoglobin (Bld) [Mass/Vol] 9.1 g/dL Low 12.0-16.0 [facility] Hemoglobin.gastrointestinal [Presence] in Stoolon 12-28-2023 Hemoglobin.gastroint estinal Ql (Stl) Positive Abnormal [facility] INR in Platelet poor plasma by Coagulation assayon 12-28-2023 INR Coag (PPP) [Relative time] {INR} [facility] Comment on above: DESIRED INR:2.0-3.0 CONDITIONS NOT LISTED BELOW2.5-3.5 FOR PROSTHETIC HEART VALVE REPLACEMENT2.5-3.5 [facility]ROMBOS[facility] Laboratory - Chemistry and C hemistry - challengeon 12-28-2023 Calcium [Mass/Vol] 8.4 mg/dL Low 8.5-10.1 [facility] Chloride [Moles/Vol] 101 mmol/L 98-107 [facility] CO2 [Moles/Vol] 25.4 mmol/L 21.0-32.0 [facility] Creatinine [Mass/Vol] 0.57 mg/dL 0.55-1.02 [facility] GFR/1.73 sq M.predicted MDRD (S/P/Bld) [Vol rate/Area] mL/min/{1.73_m2} >=60 [facility] Glucose [Mass/Vol] 102 mg/dL 74-106 [facility] Potassium [Moles/Vol] 3.7 mmol/L 3.5-5.1 [facility] Sodium [Moles/Vol] 133 mmol/L Low 136-145 [facility] Urea nitrogen [Mass/Vol] 8.0 mg/dL 7.0-18.0 [facility] Urea nitrogen/Creatinine [Mass ratio] 14.0 mg/mg [facility] Bilirubin Ql (U) Negative NEGATIVE [facility] Glucose (U) [Mass/Vol] Negative NEGATIVE [facility] Ketones Ql (U) Negative NEGATIVE [facility] pH (U) 6.0 [pH] 5.0-9.0 [facility] Sodium (U) [Moles/Vol] 13 mmol/L Low 30-90 [facility] Specific gravity (U) [Rel density] <=1.005 Abnormal 1.005-1.025 [facility] Urobilinogen Qn (U) 0.2 {[place]'U}/dL 0.2-1.0 [facility] Lactate [Moles/Vol] 2.1 mmol/L High 0.4-2.0 [facility] Comment on above: RESULTS CALLED TO VIRGILIO LEARY RN Albumin [Mass/Vol] 2.2 g/dL Low 3.4-5.0 [facility] ALP [Catalytic activity/Vol] 219 U/L High 46-116 [facility] ALT [Catalytic activity/Vol] 21 U/L 14-59 [facility] AST [Catalytic activity/Vol] 45 U/L High 15-37 [facility] Bilirubin [Mass/Vol] 0.5 mg/dL 0.2-1.0 [facility] Protein [Mass/Vol] 5.6 g/dL Low 6.4-8.2 [facility] Laboratory - Hematology and Cell countson 12-28-2023 Immature granulocytes/100 WBC (Bld) 0.3 % 0.0-0.5 [facility] Laboratory - Specimen inform ationon 12-28-2023 Appearance (U) CLEAR CLEAR [facility] Color (U) LT. YELLOW YELLOW [facility] Laboratory - Urinalysison Leukocyte esterase Test strip Ql (U) Negative NEGATIVE [facility] Nitrite Ql (U) Negative NEGATIVE [facility] Protein Ql (U) Negative NEG/TRACE [facility] Leukocytes [#/volume] correc patty for nucleated erythrocytes in Blood by Automated counon 12-28-2023 WBC corrected for nucl RBC Auto (Bld) [#/Vol] 10.1 10 3/uL 4.0-11.0 [facility] Lymphocytes Auto (Bld) [#/Vo l]on 12-28-2023 Lymphocytes (Bld) [#/Vol] 2.9 10 3/uL 1.2-3.8 [facility] Lymphocytes/100 WBC Auto (Bl d)on 12-28-2023 Lymphocytes/100 WBC (Bld) 28.7 % 20.5-60.0 [facility] MCH Auto (RBC) [Entitic mass ]on 12-28-2023 MCH (RBC) [Entitic mass] 35.6 pg High 26.7-34.0 [facility] MCHC Auto (RBC) [Mass/Vol]on 12-28-2023 MCHC (RBC) [Mass/Vol] 34.4 g/dL 29.9-35.2 [facility] MCV Auto (RBC) [Entitic vol] on 12-28-2023 MCV (RBC) [Entitic vol] 103.6 fL High 81.0-99.0 [facility] Monocytes Auto (Bld) [#/Vol] on 12-28-2023 Monocytes (Bld) [#/Vol] 0.7 10 3/uL 0.3-0.8 [facility] Monocytes/100 WBC Auto (Bld) on 12-28-2023 Monocytes/100 WBC (Bld) 6.8 % 1.7-12.0 [facility] Neutrophils Auto (Bld) [#/Vo l]on 12-28-2023 Neutrophils (Bld) [#/Vol] 6.4 10 3/uL 1.4-6.5 [facility] Neutrophils/100 WBC Auto (Bl d)on 12-28-2023 Neutrophils/100 WBC (Bld) 63.7 % 43.0-75.0 [facility] No Panel Informationon 12-27 Urine Microscopic Review NO [facility] Urine Occult Blood Negative NEGATIVE [facility] Urine Osmolality 161 mOsmol/kg . [facility] Comment on above: 24 hr : 300 - 900 Ra ndom: 50 - 1400 After 12hr fluid restriction: >850Performed at: - [facility] [address] [id number] Director: Ab Giordano MD, Phone: [phone] Urine Random Creatinine <13.00 mg/dL Low 20.00-300.00 [facility] Eosinophils # (Auto) 0.0 10 3/uL 0.0-0.7 [facility] Immature Granulocyte # (Auto) 0.03 10 3/uL 0.00-0.03 [facility] Troponin I High Sensitivity <4.0 pg/mL Low 4.0-51.3 [facility] Comment on above: CUT-OFF POINTS HAVE [...] Damaris Coffey on 12-28-2023 Blood Culture 2 [facility] Blood Culture 1 [facility] Platelet mean volume Auto (B ld) [Entitic vol]on 12-28-2023 Platelet mean volume (Bld) [Entitic vol] 9.8 fL 9.5-13.5 [facility] Platelets Auto (Bld) [#/Vol] on 12-28-2023 Platelets (Bld) [#/Vol] 315 10 3/uL 150-450 [facility] Prothrombin time (PT)on PT Coag (PPP) [Time] 9.6 s 9.0-11.6 [facility] RBC Auto (Bld) [#/Vol]on RBC (Bld) [#/Vol] 3.09 10 6/uL Low 4.20-5.40 [facility] Serum or plasma albumin/glob ulin mass ratioon 12-28-2023 Albumin/Globulin [Mass ratio] 0.6 {ratio} [facility] Serum or plasma anion gap de terminationon 12-28-2023 Anion gap [Moles/Vol] 10.3 mmol/L [facility] Basophils Auto (Bld) [#/Vol] on 11-10-2023 Basophils (Bld) [#/Vol] 0.0 10 3/uL 0.0-0.1 [facility] Basophils/100 WBC Auto (Bld) on 11-10-2023 Basophils/100 WBC (Bld) 0.5 % 0.2-2.0 [facility] Eosinophils/100 WBC Auto (Bl d)on 11-10-2023 Eosinophils/100 WBC (Bld) 0.1 % Low 0.9-7.0 [facility] Erythrocyte distribution wid th Auto (RBC) [Ratio]on 11-10-2023 Erythrocyte distribution width (RBC) [Ratio] 12.7 % 11.0-15.0 [facility] Estimated glomerular filtrat ion rate (GFR) non- Americanon 11-10-2023 GFR/1.73 sq M.predicted among non-blacks MDRD (S/P/Bld) [Vol rate/Area] 58 mL/min/{1.73_m2} Low >=60 [facility] Globulin Calc (S) [Mass/Vol] on 11-10-2023 Globulin (S) [Mass/Vol] 3.6 g/dL [facility] Hematocrit Auto (Bld) [Volum e fraction]on 11-10-2023 Hematocrit (Bld) [Volume fraction] 38.3 % 36.0-48.0 [facility] Hemoglobin [Mass/volume] in Bloodon 11-10-2023 Hemoglobin (Bld) [Mass/Vol] 13.2 g/dL 12.0-16.0 [facility] INR in Platelet poor plasma by Coagulation assayon 11-10-2023 INR Coag (PPP) [Relative time] {INR} [facility] Comment on above: DESIRED INR:2.0-3.0 CONDITIONS NOT LISTED BELOW2.5-3.5 FOR PROSTHETIC HEART VALVE REPLACEMENT2.5-3.5 RECURRENT THROMBOSIS Laboratory - Chemistry and C hemistry - challengeon 11-10-2023 Albumin [Mass/Vol] 3.0 g/dL Low 3.4-5.0 [facility] ALP [Catalytic activity/Vol] 232 U/L High 46-116 [facility] ALT [Catalytic activity/Vol] 23 U/L 14-59 [facility] AST [Catalytic activity/Vol] 82 U/L High 15-37 [facility] Bilirubin [Mass/Vol] 0.6 mg/dL 0.2-1.0 [facility] Calcium [Mass/Vol] 9.3 mg/dL 8.5-10.1 [facility] Chloride [Moles/Vol] 97 mmol/L Low 98-107 [facility] CO2 [Moles/Vol] 25.7 mmol/L 21.0-32.0 [facility] Creatinine [Mass/Vol] 0.99 mg/dL 0.55-1.02 [facility] GFR/1.73 sq M.predicted MDRD (S/P/Bld) [Vol rate/Area] mL/min/{1.73_m2} >=60 [facility] Glucose [Mass/Vol] 113 mg/dL High 74-106 [facility] Lipase [Catalytic activity/Vol] 16.0 U/L 16.0-77.0 [facility] Potassium [Moles/Vol] 3.0 mmol/L Low 3.5-5.1 [facility] Protein [Mass/Vol] 6.6 g/dL 6.4-8.2 [facility] Sodium [Moles/Vol] 133 mmol/L Low 136-145 [facility] Urea nitrogen [Mass/Vol] 4.0 mg/dL Low 7.0-18.0 [facility] Urea nitrogen/Creatinine [Mass ratio] 4.0 mg/mg [facility] Laboratory - Hematology and Cell countson 11-10-2023 Immature granulocytes/100 WBC (Bld) 0.4 % 0.0-0.5 [facility] Leukocytes [#/volume] correc patty for nucleated erythrocytes in Blood by Automated counon 11-10-2023 WBC corrected for nucl RBC Auto (Bld) [#/Vol] 7.3 10 3/uL 4.0-11.0 [facility] Lymphocytes Auto (Bld) [#/Vo l]on 11-10-2023 Lymphocytes (Bld) [#/Vol] 1.3 10 3/uL 1.2-3.8 [facility] Lymphocytes/100 WBC Auto (Bl d)on 11-10-2023 Lymphocytes/100 WBC (Bld) 17.4 % Low 20.5-60.0 [facility] MCH Auto (RBC) [Entitic mass ]on 11-10-2023 MCH (RBC) [Entitic mass] 38.2 pg High 26.7-34.0 [facility] MCHC Auto (RBC) [Mass/Vol]on 11-10-2023 MCHC (RBC) [Mass/Vol] 34.5 g/dL 29.9-35.2 [facility] MCV Auto (RBC) [Entitic vol] on 11-10-2023 MCV (RBC) [Entitic vol] 110.7 fL High 81.0-99.0 [facility] Monocytes Auto (Bld) [#/Vol] on 11-10-2023 Monocytes (Bld) [#/Vol] 0.5 10 3/uL 0.3-0.8 [facility] Monocytes/100 WBC Auto (Bld) on 11-10-2023 Monocytes/100 WBC (Bld) 6.7 % 1.7-12.0 [facility] Neutrophils Auto (Bld) [#/Vo l]on 11-10-2023 Neutrophils (Bld) [#/Vol] 5.5 10 3/uL 1.4-6.5 [facility] Neutrophils/100 WBC Auto (Bl d)on 11-10-2023 Neutrophils/100 WBC (Bld) 74.9 % 43.0-75.0 [facility] No Panel Informationon 11-09 Stool Occult Blood Negative [facility] Eosinophils # (Auto) 0.0 10 3/uL 0.0-0.7 [facility] Immature Granulocyte # (Auto) 0.03 10 3/uL 0.00-0.03 [facility] Troponin I High Sensitivity 11.2 pg/mL 4.0-51.3 [facility] Comment on above: CUT-OFF POINTS HAVE [...] volume (Bld) [Entitic vol] 9.8 fL 9.5-13.5 [facility] Platelets Auto (Bld) [#/Vol] on 11-10-2023 Platelets (Bld) [#/Vol] 305 10 3/uL 150-450 [facility] Prothrombin time (PT)on 10-24 PT Coag (PPP) [Time] 9.7 s 9.0-11.6 [facility] RBC Auto (Bld) [#/Vol]on RBC (Bld) [#/Vol] 3.46 10 6/uL Low 4.20-5.40 [facility] Serum or plasma albumin/glob ulin mass ratioon 11-10-2023 Albumin/Globulin [Mass ratio] 0.8 {ratio} [facility] Serum or plasma anion gap de terminationon 11-10-2023 Anion gap [Moles/Vol] 13.3 mmol/L [facility] Basophils Auto (Bld) [#/Vol] on 09-03-2023 Basophils (Bld) [#/Vol] 0.0 10 3/uL 0.0-0.1 [facility] Basophils/100 WBC Auto (Bld) on 09-03-2023 Basophils/100 WBC (Bld) 0.4 % 0.2-2.0 [facility] Eosinophils/100 WBC Auto (Bl d)on 09-03-2023 Eosinophils/100 WBC (Bld) 0.4 % 0.9-7.0 [facility] Erythrocyte distribution wid th Auto (RBC) [Ratio]on 09-03-2023 Erythrocyte distribution width (RBC) [Ratio] 16.8 % 11.0-15.0 [facility] Estimated glomerular filtrat ion rate (GFR) non- Americanon 09-03-2023 GFR/1.73 sq M.predicted among non-blacks MDRD (S/P/Bld) [Vol rate/Area] 29 mL/min/{1.73_m2} >=60 [facility] Hematocrit Auto (Bld) [Volum e fraction]on 09-03-2023 Hematocrit (Bld) [Volume fraction] 36.0 % 36.0-48.0 [facility] Hemoglobin [Mass/volume] in Bloodon 09-03-2023 Hemoglobin (Bld) [Mass/Vol] 12.3 g/dL 12.0-16.0 [facility] Laboratory - Chemistry and C hemistry - challengeon 09-03-2023 Calcium [Mass/Vol] 9.3 mg/dL 8.5-10.1 [facility] Chloride [Moles/Vol] 98 mmol/L 98-107 [facility] CO2 [Moles/Vol] 23.8 mmol/L 21.0-32.0 [facility] Creatinine [Mass/Vol] 1.80 mg/dL 0.55-1.02 [facility] GFR/1.73 sq M.predicted MDRD (S/P/Bld) [Vol rate/Area] 36 mL/min/{1.73_m2} >=60 [facility] Glucose [Mass/Vol] 103 mg/dL 74-106 [facility] Potassium [Moles/Vol] 3.2 mmol/L 3.5-5.1 [facility] Sodium [Moles/Vol] 137 mmol/L 136-145 [facility] Urea nitrogen [Mass/Vol] 2.0 mg/dL 7.0-18.0 [facility] Urea nitrogen/Creatinine [Mass ratio] 1.1 mg/mg [facility] Laboratory - Hematology and Cell countson 09-03-2023 Immature granulocytes/100 WBC (Bld) 0.4 % 0.0-0.5 [facility] Leukocytes [#/volume] correc patty for nucleated erythrocytes in Blood by Automated counon 09-03-2023 WBC corrected for nucl RBC Auto (Bld) [#/Vol] 9.9 10 3/uL 4.0-11.0 [facility] Lymphocytes Auto (Bld) [#/Vo l]on 09-03-2023 Lymphocytes (Bld) [#/Vol] 1.7 10 3/uL 1.2-3.8 [facility] Lymphocytes/100 WBC Auto (Bl d)on 09-03-2023 Lymphocytes/100 WBC (Bld) 17.4 % 20.5-60.0 [facility] MCH Auto (RBC) [Entitic mass ]on 09-03-2023 MCH (RBC) [Entitic mass] 36.4 pg 26.7-34.0 [facility] MCHC Auto (RBC) [Mass/Vol]on 09-03-2023 MCHC (RBC) [Mass/Vol] 34.2 g/dL 29.9-35.2 [facility] MCV Auto (RBC) [Entitic vol] on 09-03-2023 MCV (RBC) [Entitic vol] 106.5 fL 81.0-99.0 [facility] Monocytes Auto (Bld) [#/Vol] on 09-03-2023 Monocytes (Bld) [#/Vol] 0.8 10 3/uL 0.3-0.8 [facility] Monocytes/100 WBC Auto (Bld) on 09-03-2023 Monocytes/100 WBC (Bld) 8.0 % 1.7-12.0 [facility] Neutrophils Auto (Bld) [#/Vo l]on 09-03-2023 Neutrophils (Bld) [#/Vol] 7.3 10 3/uL 1.4-6.5 [facility] Neutrophils/100 WBC Auto (Bl d)on 09-03-2023 Neutrophils/100 WBC (Bld) 73.4 % 43.0-75.0 [facility] No Panel Informationon 09-02 Eosinophils # (Auto) 0.0 10 3/uL 0.0-0.7 [facility] Immature Granulocyte # (Auto) 0.04 10 3/uL 0.00-0.03 [facility] Troponin I High Sensitivity 19.5 pg/mL 4.0-51.3 [facility] Comment on above: CUT-OFF POINTS HAVE [...] volume (Bld) [Entitic vol] 9.8 fL 9.5-13.5 [facility] Platelets Auto (Bld) [#/Vol] on 09-03-2023 Platelets (Bld) [#/Vol] 312 10 3/uL 150-450 [facility] RBC Auto (Bld) [#/Vol]on RBC (Bld) [#/Vol] 3.38 10 6/uL 4.20-5.40 [facility] Serum or plasma anion gap de terminationon 09-03-2023 Anion gap [Moles/Vol] 18.4 mmol/L [facility] CT ANGIO CORONARY ART WITH H [...] PM -------- ORIGINAL REPORT -------- Dictation workstation: [id number] Interpreted By: Ibrahima Merlos, STUDY: CT ANGIO CORONARY ART WITH HEARTFLOW IF SCORE >30%; 07/15/2023 12:36 pm INDICATION: Signs/Symptoms:chest pain,angina. COMPARISON: None. ACCESSION NUMBER(S): [id number] ORDERING CLINICIAN: YOSSI HUNTER TECHNIQUE: Using multi-detector CT technology, Alvino [...] in morphology. No calcifications. MITRAL VALVE: No thickening/calcifica tion. THORACIC AORTA: Dilated aortic root 39 mm. [...] gender, and race in asymptomatic patients. Reading Nursing Executive: Dr. Ibrahima Merlos Date: 07/15/2023 4:40 pm Signed by: Ibrahima Merlos 07/15/2023 4:43 PM Dictation workstation: [id number] [facility] CTA Heart and Coronary arter ies WO and W contrast [place]apha 07-15-2023 Addendum by Miriam Zuleta MD on 07/15/2023 5:24 PM EST Interpreted [...] PM -------- ORIGINAL REPORT -------- Dictation workstation: [id number] [facility] Work Phone: 1. Mild diffuse coronary artery disease without significant stenosis. 2. Coronary artery calcium score 260, 99th percentile for age, gender, and race in asymptomatic patients. Reading Nursing Executive: Dr. Ibrahima Merlos, Date: 07/15/2023 4:40 pm Signed by: Ibrahima Merlos 07/15/2023 4:43 PM Dictation workstation: [id number] Interpreted By: Ibrahima Merlos, STUDY: CT ANGIO CORONARY ART WITH HEARTFLOW IF SCORE >30%; 07/15/2023 12:36 pm INDICATION: Signs/Symptoms:chest pain,angina. COMPARISON: None. ACCESSION NUMBER(S): [id number] ORDERING CLINICIAN: YOSSI HUNTER TECHNIQUE: Using multi-detector CT technology, Alvino [...] in morphology. No calcifications. MITRAL VALVE: No thickening/calcifica tion. THORACIC AORTA: Dilated aortic root 39 mm. There is no acute aortic pathology, such as dissection, intramural hematoma, or contained rupture. The aortic arch is not included on this examination. PERICARDIUM: There is no pericardial effusion of thickening. [facility] Ibrahima Merlos DO / Miriam Zuleta MD - 07/15/2023 Interpreted By: Ibrahima Merlos, STUDY: CT ANGIO CORONARY ART WITH HEARTFLOW IF SCORE >30%; 07/15/2023 12:36 pm INDICATION: Signs/Symptoms:chest pain,angina. COMPARISON: None. ACCESSION NUMBER(S): [id number] ORDERING CLINICIAN: YOSSI HUNTER TECHNIQUE: Using multi-detector CT technology, Alvino [...] in morphology. No calcifications. MITRAL VALVE: No thickening/calcifica tion. THORACIC AORTA: Dilated aortic root 39 mm. [...] gender, and race in asymptomatic patients. Reading Nursing Executive: Dr. Ibrahima Merlos, Date: 07/15/2023 4:40 pm Signed by: Ibrahima Merlos 07/15/2023 4:43 PM Dictation workstation: [id number] [facility] [place] Work Phone: Radiology Study observation (narrative) [facility] [place] Work Phone: CTA Heart and Coronary arter ies WO and W contrast IVOrdered By: Miriam Zuleta on 07-15-2023 [facility] [place] Work Phone: Creatinineon 07-15-2023 Creatinine [Mass/Vol] 0.7 mg/dL Normal 0.6-1.3 [facility] Comment on above: Result Comment: Hydr oxyurea can cause significant interference with creatinine measurement using the i-STAT device. An alternate method of creatinine measurement must be used in patients treated with hydroxyurea. Performed By: #### 2 160-0 #### MIGUEL BRADLEY ([id number]) [facility] ([facility]) [address] [place], [place] [address] Creatinine [Mass/Vol]on 06-27 GFR/1.73 sq M.predicted MDRD (S/P/Bld) [Vol rate/Area] - [facility] Comment on above: Calculations of martin mated GFR are performed using the 2020 CKD-EPI Study Refit equation without the race variable for the IDMS-Traceable Creatinine Methods. https://jasn.asnjournals.org/content/early/ASN.8814025 988 Interpretation and review of laboratory results Normal [facility] GFR/1.73 sq M.predicted MDRD (S/P/Bld) [Vol rate/Area] mL/min/{1.73_m2} Normal >=60 [facility] Comment on above: Result Comment: Calc ulations of estimated GFR are performed using the 2020 CKD-EPI Study Refit ???equation without the race variable for the IDMS-Traceable Creatinine Methods. https://jasn.asnjournals.org/content/early/ASN.0988794 988 Performed By: #### 2 160-0 #### MIGUEL BRADLEY ([id number]) [facility] ([facility]) [address] [place], [place] [address] Laboratory - Chemistry and C hemistry - challengeon 07-15-2023 Creatinine [Mass/Vol] 0.7 mg/dL 0.6 - 1.3 mg/dL [facility] [place] Comment on above: Hydroxyurea can caus e significant interference with creatinine measurement using the i-STAT device. An alternate method of creatinine measurement must be used in patients treated with hydroxyurea. [facility]E) [facility] TRANSTHORACIC ECHO (TTE) COMPLETE [facility] [place] [address] [facility], [address] [address] TRANSTHORACIC ECHOCARDIOGRAM REPORT Patient Name: CANDY BOOTH Reading Physician: [id number] Ibrahima Serra DO Study Date: 06/13/2023 Ordering Provider: [id number] YOSSI HUNTER MRN/PID: [id number] Fellow: Nurse: Date of /Age: 5 1970 / 52 years Fee Clerk: Ibrahima Valdes Gender: F Additional Staff: Height: 162.56 cm Admit Date: 06/13/2023 Weight: 86.18 kg Admission Status: Outpatient BSA: 1.91 m2 Department Location: [facility] Blood Pressure: 110 /60 mmHg Study Type: TRANSTHORACIC ECHO (TTE) COMPLETE Diagnosis/ICD: Shortness of breath-R06.02; Endocarditis, valve unspecified-I38 Indication: SOB, HV Disease, Dizziness, AO Dilation CPT Codes: Echo Complete w Full Doppler-78777 Patient History: Smoker: Current. Pertinent History: HTN [...] RA Area A4C: 12.5 cm2 RA Major [place] A4C: 4.3 cm AORTA MEASUREMENTS: Normal Ranges: Asc Ao, d: 4.10 cm (2.1-3.4cm) LV SYSTOLIC FUNCT (more content not included)... Normal [facility] US Heart TransthoracicOrdere d By: Ibrahima Serra on 06-13-2023 Aortic Valve Area by Continuity of Peak Velocity 3.48 cm2 [facility] [place] Work Phone: [phone] Aortic Valve Area by Continuity of VTI 3.57 cm2 [facility] [place] Work Phone: 0 AV mn grad 3.0 mmHg [facility] [place] Work Phone: 0 AV pk grad 4.7 mmHg [facility] [place] Work Phone: 0 AV pk liya 1.08 m/s [facility] [place] Work Phone: [phone] LV A4C EF 55.8 [facility] [place] Work Phone: 12 0 LV biplane EF 56 % [facility] [place] Work Phone: 0 LVIDd 4.20 cm [facility] [place] Work Phone: 1 0 LVOT diam 2.20 cm [facility] [place] Work Phone: 1 0 MV avg E/e' ratio 4.90 [facility] Work Phone: 1 0 MV E/A ratio 0.62 [facility] [place] Work Phone: [phone] RVSP 35.5 mmHg [facility] [place] Work Phone: 14 0 [facility] [place] Work Phone: US Heart Transthoracicon [facility] [address], [address], [place], [place] [address] TRANSTHORACIC ECHOCARDIOGRAM REPORT Patient Name: CANDY BOOTH Reading Physician: [id number] Ibrahima Serra DO Study Date: 06/13/2023 Ordering Provider: [id number] YOSSI HUNTER MRN/PID: [id number] Fellow: Nurse: Date of /Age: 5 1970 / 52 years Fee Clerk: Ibrahima Valdes Gender: F Additional Staff: Height: 162.56 cm Admit Date: 06/13/2023 Weight: 86.18 kg Admission Status: Outpatient BSA: 1.91 m2 Department Location: [facility] Blood Pressure: 110 /60 mmHg Study Type: TRANSTHORACIC ECHO (TTE) COMPLETE Diagnosis/ICD: Shortness of breath-R06.02; Endocarditis, valve unspecified-I38 Indication: SOB, HV Disease, Dizziness, AO Dilation CPT Codes: Echo Complete w Full Doppler-80507 Patient History: Smoker: Current. Pertinent History: HTN [...] not included)... Ibrahima Meyer DO - 06/13/2023 [facility] [address], [address], [place] [address] TRANSTHORACIC ECHOCARDIOGRAM REPORT Patient Name: CANDY BOOTH Reading Physician: [id number] Ibrahima Serra DO Study Date: 06/13/2023 Ordering Provider: [id number] YOSSI HUNTER MRN/PID: [id number] Fellow: Nurse: Date of /Age: 5 1970 / 52 years Fee Clerk: Ibrahima Valdes Gender: F Additional Staff: Height: 162.56 cm Admit Date: 06/13/2023 Weight: 86.18 kg Admission Status: Outpatient BSA: 1.91 m2 Department Location: [facility] Blood Pressure: 110 /60 mmHg Study Type: TRANSTHORACIC ECHO (TTE) COMPLETE Diagnosis/ICD: Shortness of breath-R06.02; Endocarditis, valve unspecified-I38 Indication: SOB, HV Disease, Dizziness, AO Dilation CPT Codes: Echo Complete w Full Doppler-21019 Patient History: Smoker: Current. Pertinent History: HTN [...] cm2 RA Cornelius (more content not included)... [facility] [place] Work Phone: PROF 14(COMP METB)on Albumin [Mass/Vol] 4.2 g/dL Normal 3.4-5.0 [facility] Comment on above: Performed By: #### C MP #### [facility] [address] [place] [address] [address] Leonides Anders Albumin/Globulin [Mass ratio] 1.3 {ratio} Normal [facility] Comment on above: Performed By: #### C MP #### [facility] [address] [place] [address] [address] Leonides Anders ALP [Catalytic activity/Vol] 90 U/L Normal 46-116 [facility] Comment on above: Performed By: #### C MP #### [facility] [address] [address] [address] Leonides Anders ALT [Catalytic activity/Vol] 25 U/L Normal 14-59 [facility] Comment on above: Performed By: #### C MP #### [facility] [address] [address] [address] Leonides Anders Anion gap [Moles/Vol] 12.1 mmol/L Normal [facility] Comment on above: Performed By: #### C MP #### [facility] [address] [address] [address] Leonides Anders AST [Catalytic activity/Vol] 20 U/L Normal 15-37 [facility] Comment on above: Performed By: #### C MP #### [facility] [address] [address] [address] Leonides Anders Bilirubin [Mass/Vol] 0.3 mg/dL Normal 0.2-1.0 [facility] Comment on above: Performed By: #### C MP #### [facility] [address] [address] [address] Leonides Anders Calcium [Mass/Vol] 9.4 mg/dL Normal 8.5-10.1 [facility] Comment on above: Performed By: #### C MP #### [facility] [address] [address] [address] Leonides Anders Chloride [Moles/Vol] 99 mmol/L Normal 98-107 [facility] Comment on above: Performed By: #### C MP #### [facility] [address] [place] [address] Dr. Leonides Anders CO2 [Moles/Vol] 26.2 mmol/L Normal 21.0-32.0 [facility] Comment on above: Performed By: #### C MP #### [facility] [address] [place] [address] Dr. Leonides Anders Creatinine [Mass/Vol] 0.68 mg/dL Normal 0.55-1.02 [facility] Comment on above: Performed By: #### C MP #### [facility] [address] [place] [address] Dr. Leonides Anders EGFR-AF KYRGYZ >60 Normal >=60 [facility] Comment on above: Performed By: #### C MP #### [facility] [address] [place] [address] Dr. Leonides Anders EGFR-NON AF KYRGYZ >60 Normal >=60 [facility] Comment on above: Performed By: #### C MP #### [facility] [address] [place] [address] Dr. Leonides Anders Globulin (S) [Mass/Vol] 3.3 g/dL Normal [facility] Comment on above: Performed By: #### C MP #### [facility] [address] [place] [address] Dr. Leonides Anders Glucose [Mass/Vol] 97 mg/dL Normal 74-106 [facility] Comment on above: Performed By: #### C MP #### [facility] [address] [place] [address] Dr. Leonides Anders Potassium [Moles/Vol] 4.3 mmol/L Normal 3.5-5.1 [facility] Comment on above: Performed By: #### C MP #### [facility] [address] [place] [address] Dr. Leonides Anders Protein [Mass/Vol] 7.5 g/dL Normal 6.4-8.2 [facility] Comment on above: Performed By: #### C MP #### [facility] [address] [place] [address] Dr. Leonides Anders Sodium [Moles/Vol] 133 mmol/L Critically low 136-145 [facility] Comment on above: Performed By: #### C MP #### [facility] [address] [place] [address] Dr. Leonides Anders Urea nitrogen [Mass/Vol] 10.0 mg/dL Normal 7.0-18.0 [facility] Comment on above: Performed By: #### C MP #### [facility] [address] [place] [address] Dr. Leonides Anders Urea nitrogen/Creatinine [Mass ratio] 14.7 mg/mg Normal [facility] Comment on above: Performed By: #### C MP #### [facility] [address] [place] [address] Dr. Leonides Anders CBC AUTO DIFFon 03-25-2022 BASO # 0.1 103/ul Normal 0.0-0.1 [facility] Comment on above: Performed By: #### C BC #### [facility] [address] [place] [address] Dr. Leonides Anders Basophils/100 WBC (Bld) 0.5 % Normal 0.2-2.0 [facility] Comment on above: Performed By: #### C BC #### [facility] [address] [place] [address] Dr. Leonides Anders EO # 0.1 103/ul Normal 0.0-0.7 [facility] Comment on above: Performed By: #### C BC #### [facility] [address] [place] [address] Dr. Leonides Anders Eosinophils/100 WBC (Bld) 1.1 % Normal 0.9-7.0 [facility] Comment on above: Performed By: #### C BC #### [facility] [address] [place] [address] Dr. Leonides Anders Erythrocyte distribution width (RBC) [Ratio] 12.9 % Normal 11.0-15.0 [facility] Comment on above: Performed By: #### C BC #### [facility] [address] [place] [address] Dr. Leonides Anders Hematocrit (Bld) [Volume fraction] 38.8 % Normal 36.0-48.0 [facility] Comment on above: Performed By: #### C BC #### [facility] [address] [place] [address] Dr. Leonides Anders Hemoglobin (Bld) [Mass/Vol] 13.8 g/dL Normal 12.0-16.0 [facility] Comment on above: Performed By: #### C BC #### [facility] [address] [place] [address] Dr. Leonides Anders IG # 0.03 10e3/ul Normal 0.00-0.03 [facility] Comment on above: Performed By: #### C BC #### [facility] [address] [place] [address] Dr. Leonides Anders IG % 0.3 % Normal 0.0-0.5 [facility] Comment on above: Performed By: #### C BC #### [facility] [address] [place] [address] Dr. Leonides Anders LYMPH # 2.5 103/ul Normal 1.2-3.8 [facility] Comment on above: Performed By: #### C BC #### [facility] [address] [place] [address] Dr. Leonides Anders Lymphocytes/100 WBC (Bld) 26.5 % Normal 20.5-60.0 [facility] Comment on above: Performed By: #### C BC #### [facility] [address] [place] [address] Dr. Leonides Anders MANUAL DIFF REQ NO Normal [facility] Comment on above: Performed By: #### C BC #### [facility] [address] [place] [address] Dr. Leonides Anders MCH (RBC) [Entitic mass] 32.0 pg Normal 26.7-34.0 [facility] Comment on above: Performed By: #### C BC #### [facility] [address] [place] [address] Dr. Leonides Anders MCHC (RBC) [Mass/Vol] 35.6 g/dL Critically high 29.9-35.2 [facility] Comment on above: Performed By: #### C BC #### [facility] [address] [place] [address] Dr. Leonides Anders MCV (RBC) [Entitic vol] 90.0 fL Normal 81.0-99.0 [facility] Comment on above: Performed By: #### C BC #### [facility] [address] [place] [address] Dr. Leonides Anders MONO # 0.9 103/ul Critically high 0.3-0.8 [facility] Comment on above: Performed By: #### C BC #### [facility] [address] [place] [address] Dr. Leonides Anders Monocytes/100 WBC (Bld) 9.8 % Normal 1.7-12.0 [facility] Comment on above: Performed By: #### C BC #### [facility] [address] [place] [address] Dr. Leonides Anders NEUT # 5.8 103/ul Normal 1.4-6.5 [facility] Comment on above: Performed By: #### C BC #### [facility] [address] [place] [address] Dr. Leonides Anders Neutrophils/100 WBC (Bld) 61.8 % Normal 43.0-75.0 [facility] Comment on above: Performed By: #### C BC #### [facility] [address] [address] [address] Leonides Anders Platelet mean volume (Bld) [Entitic vol] 9.5 fL Normal 9.5-13.5 [facility] Comment on above: Performed By: #### C BC #### [facility] [address] [address] [address] Leonides Anders PLT 255 103/ul Normal 150-450 [facility] Comment on above: Performed By: #### C BC #### [facility] [address] [address] [address] Leonides Anders RBC 4.31 106/ul Normal 4.20-5.40 [facility] Comment on above: Performed By: #### C BC #### [facility] [address] [place] [address] Dr. Leonides Anders WBC 9.4 103/ul Normal 4.0-11.0 [facility] Comment on above: Performed By: #### C BC #### [facility] [address] [place] [address] Dr. Leonides Anders PROF CHEM 8 (BAS METB)on Anion gap [Moles/Vol] 15.7 mmol/L Normal [facility] Comment on above: Performed By: #### B MP #### [facility] [address] [place] [address] Dr. Leonides Anders Calcium [Mass/Vol] 9.1 mg/dL Normal 8.5-10.1 [facility] Comment on above: Performed By: #### B MP #### [facility] [address] [place] [address] Dr. Leonides Anders Chloride [Moles/Vol] 91 mmol/L Critically low 98-107 [facility] Comment on above: Performed By: #### B MP #### [facility] [address] [place] [address] Dr. Leonides Anders CO2 [Moles/Vol] 22.8 mmol/L Normal 21.0-32.0 [facility] Comment on above: Performed By: #### B MP #### [facility] [address] [address] [address] Leonides Anders Creatinine [Mass/Vol] 0.57 mg/dL Normal 0.55-1.02 [facility] Comment on above: Performed By: #### B MP #### [facility] [address] [address] [address] Leonides Anders EGFR-AF KYRGYZ >60 Normal >=60 [facility] Comment on above: Performed By: #### B MP #### [facility] [address] [address] [address] Leonides Anders EGFR-NON AF KYRGYZ >60 Normal >=60 [facility] Comment on above: Performed By: #### B MP #### [facility] [address] [address] [address] Leonides Anders Glucose [Mass/Vol] 119 mg/dL Critically high 74-106 [facility] Comment on above: Performed By: #### B MP #### [facility] [address] [address] [address] Leonides Anders Potassium [Moles/Vol] 3.5 mmol/L Normal 3.5-5.1 [facility] Comment on above: Performed By: #### B MP #### [facility] [address] [address] [address] Leonides Anders Sodium [Moles/Vol] 126 mmol/L Critically low 136-145 [facility] Comment on above: Performed By: #### B MP #### [facility] [address] [address] [address] Leonides Anders Urea nitrogen [Mass/Vol] 4.0 mg/dL Critically low 7.0-18.0 [facility] Comment on above: Performed By: #### B MP #### [facility] [address] [address] [address] Leonides Anders Urea nitrogen/Creatinine [Mass ratio] 7.0 mg/mg Normal [facility] Comment on above: Performed By: #### B MP #### [facility] [address] [place] [address] Dr. Leonides Anders VITAMIN B12on 03-25-2022 Cobalamin (Vitamin B12) [Mass/Vol] 192.0 pg/mL Critically low 193.0-986.0 [facility] Comment on above: Performed By: #### V ITB12 #### [facility] [address] [place] [address] Dr. Leonides Anders VIT D 1 25 DIHYDROXYon 12-06 Calcitriol(1,25 di-OH Vit D) 57.4 pg/mL Normal 24.8-81.5 [facility] Comment on above: Result Comment: Pl ease note reference interval change Performed By: #### V [id number] ####[facility] [address] [place], [place] [address]Dr. Leonides Anders CBC AUTO DIFFon 12-04-2021 BASO # 0.1 103/ul Normal 0.0-0.1 [facility] Comment on above: Performed By: #### C BC ####[facility] [address] [place], [place] [address]Dr. Leonides Anders Basophils/100 WBC (Bld) 0.5 % Normal 0.2-2.0 [facility] Comment on above: Performed By: #### C BC ####[facility] [address] [place], [place] [address]Dr. Leonides Anders EO # 0.2 103/ul Normal 0.0-0.7 [facility] Comment on above: Performed By: #### C BC ####[facility] [address] [place], [place] [address]Dr. Leonides Anders Eosinophils/100 WBC (Bld) 2.3 % Normal 0.9-7.0 [facility] Comment on above: Performed By: #### C BC ####[facility] [address] [place], [place] [address]Dr. Leonides Anders Erythrocyte distribution width (RBC) [Ratio] 13.6 % Normal 11.0-15.0 [facility] Comment on above: Performed By: #### C BC ####[facility] [address] [place] [address]Dr. Leonides Anders Hematocrit (Bld) [Volume fraction] 42.1 % Normal 36.0-48.0 [facility] Comment on above: Performed By: #### C BC ####[facility] [address] [place] [address]Dr. Leonides Anders Hemoglobin (Bld) [Mass/Vol] 14.4 g/dL Normal 12.0-16.0 [facility] Comment on above: Performed By: #### C BC ####[facility] [address] [place] [address]Dr. Leonides Chago IG # 0.02 10e3/ul Normal 0.00-0.03 [facility] Comment on above: Performed By: #### C BC ####[facility] [address] [place] [address]Dr. Leonides Anders IG % 0.2 % Normal 0.0-0.5 [facility] Comment on above: Performed By: #### C BC ####[facility] [address] [place] [address]Dr. Kanikatorey Anders LYMPH # 3.6 103/ul Normal 1.2-3.8 [facility] Comment on above: Performed By: #### C BC ####[facility] [address] [place] [address]Dr. Kanikatorey Anders Lymphocytes/100 WBC (Bld) 38.3 % Normal 20.5-60.0 [facility] Comment on above: Performed By: #### C BC ####[facility] [address] [place] [address]Dr. Kanikatorey Anders MANUAL DIFF REQ NO Normal [facility] Comment on above: Performed By: #### C BC ####[facility] [address] [place], [place] [address]Dr. Leonides Chago MCH (RBC) [Entitic mass] 31.0 pg Normal 26.7-34.0 [facility] Comment on above: Performed By: #### C BC ####[facility] [address] [place], [place] [id number]. Leonides Anders MCHC (RBC) [Mass/Vol] 34.2 g/dL Normal 29.9-35.2 [facility] Comment on above: Performed By: #### C BC ####[facility] [address] [place] [address]. Leonides Anders MCV (RBC) [Entitic vol] 90.5 fL Normal 81.0-99.0 [facility] Comment on above: Performed By: #### C BC ####[facility] [address] [place] [address]Dr. Leonides Chago MONO # 0.8 103/ul Normal 0.3-0.8 [facility] Comment on above: Performed By: #### C BC ####[facility] [address] [place] [address]Dr. Kanikatorey Anders Monocytes/100 WBC (Bld) 8.7 % Normal 1.7-12.0 [facility] Comment on above: Performed By: #### C BC ####[facility] [address] [place], [place] [address]Dr. Leonides Chago NEUT # 4.7 103/ul Normal 1.4-6.5 [facility] Comment on above: Performed By: #### C BC ####[facility] [address] [place] [id number]. Leonides Chago Neutrophils/100 WBC (Bld) 50.0 % Normal 43.0-75.0 [facility] Comment on above: Performed By: #### C BC ####[facility] [address] [place] [address]Dr. Leonides Chago Platelet mean volume (Bld) [Entitic vol] 9.3 fL Critically low 9.5-13.5 [facility] Comment on above: Performed By: #### C BC ####[facility] [address] [id number]. Leonides Chago PLT 263 103/ul Normal 150-450 [facility] Comment on above: Performed By: #### C BC ####[facility] [address] [place], [place] [address]Jj. Leonides Anders RBC 4.65 106/ul Normal 4.20-5.40 [facility] Comment on above: Performed By: #### C BC ####[facility] [address] [place], [place] [address]AoAna Anders WBC 9.5 103/ul Normal 4.0-11.0 [facility] Comment on above: Performed By: #### C BC ####[facility] [address] [place], [place] [address]Lk. Leonides Anders FERRITINon 12-04-2021 Ferritin [Mass/Vol] 69.0 ng/mL Normal 8.0-252.0 [facility] Comment on above: Performed By: #### F ERR, VITB12 #### [facility] [address] [address] [address] Leonides Anders LIPID PROFILEon 12-04-2021 CHOL-HDL RATIO NORM SEE BELOW Normal [facility] Comment on above: Result Comment: 3.3 - 4.4 LOW RISK 4.4 - 7.1 AVERAGE RISK 7.1 - 11.0 MODERATE RISK >11.0 HIGH RISK Performed By: #### C MP, LIPID #### [facility] [address] [address] [address] Leonides Anders Cholesterol [Mass/Vol] 234 mg/dL Critically high <=200 [facility] Comment on above: Performed By: #### C MP, LIPID #### [facility] [address] [address] [address] Leonides Anders Cholesterol in HDL [Mass/Vol] 48 mg/dL Normal 40-60 [facility] Comment on above: Performed By: #### C MP, LIPID #### [facility] [address] [address] [address] Leonides Anders Cholesterol in LDL [Mass/Vol] 150.8 mg/dL Normal [facility] Comment on above: Performed By: #### C MP, LIPID #### [facility] [address] [address] [address] Leonides Anders Cholesterol.total/Ch olesterol in HDL [Mass ratio] 4.9 {ratio} Normal [facility] Comment on above: Performed By: #### C MP, LIPID #### [facility] [address] [place] [address] Dr. Leonides Anders HDL NORMAL > or = 60 mg/dl - LOW CARDIOVASCULAR RISK <40 mg/dl - HIGH CARDIOVASCULAR RISK Normal [facility] Comment on above: Performed By: #### C MP, LIPID #### [facility] [address] [place] [address] Dr. Leonides Anders LDL CALC NORMAL SEE BELOW Normal [facility] Comment on above: Result Comment: <100 mg/dl OPTIMAL 100 - 129 mg/dl NEAR OR ABOVE OPTIMAL 130 - 159 mg/dl BORDERLINE HIGH 160 - 189 mg/dl HIGH >190 mg/dl VERY HIGH Performed By: #### C MP, LIPID #### [facility] [address] [place] [address] Dr. Leonides Anders Triglyceride [Mass/Vol] 176 mg/dL Critically high <=150 [facility] Comment on above: Performed By: #### C MP, LIPID #### [facility] [address] [place] [address] Dr. Leonides Anders VLDL CALC 35.2 mg/dL Normal [facility] Comment on above: Performed By: #### C MP, LIPID #### [facility] [address] [place] [address] Dr. Leonides Anders PROF 14(COMP METB)on 022 Albumin [Mass/Vol] 4.3 g/dL Normal 3.4-5.0 [facility] Comment on above: Performed By: #### C MP, LIPID #### [facility] [address] [place] [address] Dr. Leonides Anders Albumin/Globulin [Mass ratio] 1.3 {ratio} Normal [facility] Comment on above: Performed By: #### C MP, LIPID #### [facility] [address] [place] [address] Dr. Leonides Anders ALP [Catalytic activity/Vol] 96 U/L Normal 46-116 [facility] Comment on above: Performed By: #### C MP, LIPID #### [facility] [address] [address] [address] Leonides Anders ALT [Catalytic activity/Vol] 27 U/L Normal 14-59 [facility] Comment on above: Performed By: #### C MP, LIPID #### [facility] [address] [address] [address] Leonides Anders Anion gap [Moles/Vol] 12.5 mmol/L Normal [facility] Comment on above: Performed By: #### C MP, LIPID #### [facility] [address] [address] [address] Leonides Anders AST [Catalytic activity/Vol] 16 U/L Normal 15-37 [facility] Comment on above: Performed By: #### C MP, LIPID #### [facility] [address] [address] [address] Leonides Anders Bilirubin [Mass/Vol] 0.3 mg/dL Normal 0.2-1.0 [facility] Comment on above: Performed By: #### C MP, LIPID #### [facility] [address] [address] [address] Leonides Anders Calcium [Mass/Vol] 9.5 mg/dL Normal 8.5-10.1 [facility] Comment on above: Performed By: #### C MP, LIPID #### [facility] [address] [address] [address] Leonides Anders Chloride [Moles/Vol] 98 mmol/L Normal 98-107 [facility] Comment on above: Performed By: #### C MP, LIPID #### [facility] [address] [address] [address] Leonides Anders CO2 [Moles/Vol] 27.5 mmol/L Normal 21.0-32.0 [facility] Comment on above: Performed By: #### C MP, LIPID #### [facility] [address] [address] [address] Leonides Anders Creatinine [Mass/Vol] 0.82 mg/dL Normal 0.55-1.02 [facility] Comment on above: Performed By: #### C MP, LIPID #### [facility] [address] [address] [address] Leonides Anders EGFR-AF KYRGYZ >60 Normal >=60 [facility] Comment on above: Performed By: #### C MP, LIPID #### [facility] [address] [address] [address] Leonides Anders EGFR-NON AF KYRGYZ >60 Normal >=60 [facility] Comment on above: Performed By: #### C MP, LIPID #### [facility] [address] [address] [address] Leonides Anders Globulin (S) [Mass/Vol] 3.4 g/dL Normal [facility] Comment on above: Performed By: #### C MP, LIPID #### [facility] [address] [place] [address] Dr. Leonides Anders Glucose [Mass/Vol] 98 mg/dL Normal 74-106 [facility] Comment on above: Performed By: #### C MP, LIPID #### [facility] [address] [address] [address] Leonides Anders Potassium [Moles/Vol] 4.0 mmol/L Normal 3.5-5.1 [facility] Comment on above: Performed By: #### C MP, LIPID #### [facility] [address] [address] [address] Leonides Anders Protein [Mass/Vol] 7.7 g/dL Normal 6.4-8.2 [facility] Comment on above: Performed By: #### C MP, LIPID #### [facility] [address] [address] [address] Leonides Anders Sodium [Moles/Vol] 134 mmol/L Critically low 136-145 [facility] Comment on above: Performed By: #### C MP, LIPID #### [facility] [address] [place] [address] Dr. Leonides Anders Urea nitrogen [Mass/Vol] 9.0 mg/dL Normal 7.0-18.0 [facility] Comment on above: Performed By: #### C MP, LIPID #### [facility] [address] [place] [address] Dr. Leonides Anders Urea nitrogen/Creatinine [Mass ratio] 11.0 mg/mg Normal [facility] Comment on above: Performed By: #### C MP, LIPID #### [facility] [address] [place] [address] Dr. Leonides Anders US SINGLE QUAD RT [...] TUYET JONES Date: 2021-12-04 19:11 Normal [facility] VITAMIN B12on 12-04-2021 Cobalamin (Vitamin B12) [Mass/Vol] 232.0 pg/mL Normal 193.0-986.0 [facility] Comment on above: Performed By: #### F ERR, VITB12 #### [facility] [address] [place] [address] Dr. Leonides Anders CBC AUTO DIFFon 11-03-2021 BASO # 0.0 103/ul Normal 0.0-0.1 [facility] Comment on above: Performed By: #### C BC #### [facility] [address] [place] [address] Dr. Leonides Anders Basophils/100 WBC (Bld) 0.6 % Normal 0.2-2.0 [facility] Comment on above: Performed By: #### C BC #### [facility] [address] [place] [address] Dr. Leonides Anders EO # 0.1 103/ul Normal 0.0-0.7 [facility] Comment on above: Performed By: #### C BC #### [facility] [address] [place] [address] Dr. Leonides Anders Eosinophils/100 WBC (Bld) 0.9 % Normal 0.9-7.0 [facility] Comment on above: Performed By: #### C BC #### [facility] [address] [place] [address] Dr. Leonides Anders Erythrocyte distribution width (RBC) [Ratio] 14.1 % Normal 11.0-15.0 [facility] Comment on above: Performed By: #### C BC #### [facility] [address] [place] [address] Dr. Leonides Anders Hematocrit (Bld) [Volume fraction] 44.9 % Normal 36.0-48.0 [facility] Comment on above: Performed By: #### C BC #### [facility] [address] [place] [address] Dr. Leonides Anders Hemoglobin (Bld) [Mass/Vol] 15.4 g/dL Normal 12.0-16.0 [facility] Comment on above: Performed By: #### C BC #### [facility] [address] [place] [address] Dr. Leonides Anders IG # 0.02 10e3/ul Normal 0.00-0.03 [facility] Comment on above: Performed By: #### C BC #### [facility] [address] [place] [address] Dr. Leonides Anders IG % 0.3 % Normal 0.0-0.5 [facility] Comment on above: Performed By: #### C BC #### [facility] [address] [place] [address] Dr. Leonides Anders LYMPH # 1.4 103/ul Normal 1.2-3.8 [facility] Comment on above: Performed By: #### C BC #### [facility] [address] [place] [address] Dr. Leonides Anders Lymphocytes/100 WBC (Bld) 20.3 % Critically low 20.5-60.0 [facility] Comment on above: Performed By: #### C BC #### [facility] [address] [place] [address] Dr. Leonides Anders MANUAL DIFF REQ NO Normal [facility] Comment on above: Performed By: #### C BC #### [facility] [address] [place] [address] Dr. Leonides Anders MCH (RBC) [Entitic mass] 30.6 pg Normal 26.7-34.0 [facility] Comment on above: Performed By: #### C BC #### [facility] [address] [place] [address] Dr. Leonides Anders MCHC (RBC) [Mass/Vol] 34.3 g/dL Normal 29.9-35.2 [facility] Comment on above: Performed By: #### C BC #### [facility] [address] [place] [address] Dr. Leonides Anders MCV (RBC) [Entitic vol] 89.3 fL Normal 81.0-99.0 [facility] Comment on above: Performed By: #### C BC #### [facility] [address] [place] [address] Dr. Leonides Anders MONO # 0.4 103/ul Normal 0.3-0.8 [facility] Comment on above: Performed By: #### C BC #### [facility] [address] [place] [address] Dr. Leonides Anders Monocytes/100 WBC (Bld) 6.3 % Normal 1.7-12.0 [facility] Comment on above: Performed By: #### C BC #### [facility] [address] [place] [address] Dr. Leonides Anders NEUT # 4.9 103/ul Normal 1.4-6.5 [facility] Comment on above: Performed By: #### C BC #### [facility] [address] [place] [address] Dr. Leonides Anders Neutrophils/100 WBC (Bld) 71.6 % Normal 43.0-75.0 [facility] Comment on above: Performed By: #### C BC #### [facility] [address] [address] [address] Leonides Anders Platelet mean volume (Bld) [Entitic vol] 9.1 fL Critically low 9.5-13.5 [facility] Comment on above: Performed By: #### C BC #### [facility] [address] [address] [address] Leonides Anders PLT 235 103/ul Normal 150-450 [facility] Comment on above: Performed By: #### C BC #### [facility] [address] [address] [address] Leonides Anders RBC 5.03 106/ul Normal 4.20-5.40 [facility] Comment on above: Performed By: #### C BC #### [facility] [address] [address] [address] Leonides Anders WBC 6.8 103/ul Normal 4.0-11.0 [facility] Comment on above: Performed By: #### C BC #### [facility] [address] [address] [address] ABD/PELV W CONon 11-04-19 CT ABD/PELV W CON EXAMINATION: CT ABD/PELV W CON INDICATION: Epigastric and left abdominal [...] by: MARGARET PARRA Date: 2021-11-03 10:51 Normal [facility] LACTATE/LACTIC ACIDon 2021 Lactate [Moles/Vol] 0.9 mmol/L Normal 0.4-1.9 [facility] Comment on above: Performed By: #### L ACT ####[facility] [address] [address]Dr. Leonides Anders LIPASEon 11-03-2021 Lipase [Catalytic activity/Vol] 44.0 U/L Critically low 73.0-393.0 [facility] Comment on above: Performed By: #### L IPA, CMP ####[facility] [address] [address]Dr. Leonides Anders PROF 14(COMP METB)on 022 Albumin [Mass/Vol] 4.3 g/dL Normal 3.4-5.0 [facility] Comment on above: Performed By: #### L IPA, CMP ####[facility] [address] [address]Dr. Leonides Anders Albumin/Globulin [Mass ratio] 1.3 {ratio} Normal [facility] Comment on above: Performed By: #### L IPA, CMP ####[facility] [address] [address]Dr. Leonides Anders ALP [Catalytic activity/Vol] 95 U/L Normal 46-116 [facility] Comment on above: Performed By: #### L IPA, CMP ####[facility] [address] [address]Dr. Leonides Anders ALT [Catalytic activity/Vol] 20 U/L Normal 14-59 [facility] Comment on above: Performed By: #### L IPA, CMP ####[facility] [address] [place], [place] [address]Dr. Leonides Anders Anion gap [Moles/Vol] 14.9 mmol/L Normal [facility] Comment on above: Performed By: #### L IPA, CMP ####[facility] [address] [place], [place] [address]Dr. Leonides Anders AST [Catalytic activity/Vol] 21 U/L Normal 15-37 [facility] Comment on above: Performed By: #### L IPA, CMP ####[facility] [address] [place], [place] [address]Dr. Leonides Anders Bilirubin [Mass/Vol] 0.5 mg/dL Normal 0.2-1.0 [facility] Comment on above: Performed By: #### L IPA, CMP ####[facility] [address] [place], [place] [address]Dr. Leonides Anders Calcium [Mass/Vol] 9.6 mg/dL Normal 8.5-10.1 [facility] Comment on above: Performed By: #### L IPA, CMP ####[facility] [address] [place], [place] [address]Dr. Leonides Anders Chloride [Moles/Vol] 99 mmol/L Normal 98-107 [facility] Comment on above: Performed By: #### L IPA, CMP ####[facility] [address] [place], [place] [address]Dr. Leonides Anders CO2 [Moles/Vol] 23.1 mmol/L Normal 21.0-32.0 [facility] Comment on above: Performed By: #### L IPA, CMP ####[facility] [address] [place], [place] [address]Dr. Leonides Anders Creatinine [Mass/Vol] 0.69 mg/dL Normal 0.55-1.02 [facility] Comment on above: Performed By: #### L IPA, CMP ####[facility] [address] [place], [place] [address]Dr. Leonides Chago EGFR-AF KYRGYZ >60 Normal >=60 [facility] Comment on above: Performed By: #### L IPA, CMP ####[facility] [address] [address]Dr. Leonides Anders EGFR-NON AF KYRGYZ >60 Normal >=60 [facility] Comment on above: Performed By: #### L IPA, CMP ####[facility] [address] [id number]. Leonides Anders Globulin (S) [Mass/Vol] 3.4 g/dL Normal [facility] Comment on above: Performed By: #### L IPA, CMP ####[facility] [address] [place] [address]Dr. Leonides Anders Glucose [Mass/Vol] 121 mg/dL Critically high 74-106 T [facility] Comment on above: Performed By: #### L IPA, CMP ####[facility] [address] [place], [place] [address]Dr. Leonides Anders Potassium [Moles/Vol] 4.0 mmol/L Normal 3.5-5.1 [facility] Comment on above: Performed By: #### L IPA, CMP ####[facility] [address] [place], [place] [address]Dr. Leonides Chago Protein [Mass/Vol] 7.7 g/dL Normal 6.4-8.2 [facility] Comment on above: Performed By: #### L IPA, CMP ####[facility] [address] [place], [place] [address]Dr. Leonides Anders Sodium [Moles/Vol] 133 mmol/L Critically low 136-145 [facility] Comment on above: Performed By: #### L IPA, CMP ####[facility] [address] [place], [place] [address]Dr. Kanikatorey Chago Urea nitrogen [Mass/Vol] 6.0 mg/dL Critically low 7.0-18.0 [facility] Comment on above: Performed By: #### L IPA, CMP ####[facility] [address] [place], [place] [address]Dr. Leonides Anders Urea nitrogen/Creatinine [Mass ratio] 8.7 mg/mg Normal [facility] Comment on above: Performed By: #### L IPA, CMP ####[facility] [address] [place], [place] [address]Jx. Leonides Anders TROPONIN, HIGH SENSITIVITYon 11-03-2021 HSTROP 6.0 pg/mL Normal 4.0-51.3 [facility] Comment on above: Result Comment: CUT- OFF POINTS HAVE BEEN ESTABLISHED BASED ON THE FOURTH UNIVERSAL DEFINITIONS OF MYOCARDIAL INFARCTION. THE UPPER REFERENCE LIMIT (URL) OF TROPONIN, DEFINED THE 99TH PERCENTILE OF cTnI DISTRIBUTION IN A REFERENCE POPULATION, HAS BEEN CONFIRMED THE DECISION THRESHOLD FOR SC DIAGNOSIS. Performed By: #### H STROPN ####[facility] [address] [place], [place] [address]TrAna Leonides Anders [place] 03-26-2021 DILCIA Telephone (HEMAGRE) CANDY BOOTH ([id number]) 1970 F Date Time Provider Department 03/26/21 RODY SAMUEL HEMBRANDON During your visit today, we recorded the following information about you: Allergies As of Date: 03/26/2021 Noted Allergy Reaction ACETAMINOPHEN-CODEIN E 09/06/2015 5 - Intolerance Comments: Sleep apnea EFFEXOR (VENLAFAXINE ANALOGUES) 2020 16 - Unknown NSAIDS (NON-STEROIDAL ANTI-INFLAM*09/06/19 16 14 - Other: See Comments Comments: Has not taken due to gastric bypass surgery in the past SULFAMETHAZINE 2020 16 - Unknown Comments: Ophthalmic agents Date Reviewed: 11/08/2020 Reviewed by: Ariana Matute APRN.DRILLING ASSISTANT - Fully Assessed Reason for Visit: Rx Refills [128] Prescriptions as of 08/06/2021 - amitriptyline (ELAVIL) 75 mg tablet Take 75 mg by mouth daily at bedtime. - carisoprodol (SOMA) 350 mg tablet Take 350 mg by mouth four times daily. - amphetamine-dextroam phetamine 15 mg tablet Take 1 tablet by [...] mg by mouth three times daily. - oxyCODONE-acetaminop hen (PERCOCET) 5-325 mg tablet Take 1 tablet [...] Encounter Status:Closed by LORI TAMEZ on 08/06/21 [facility] [place] 11-29-2020 SHAUNAN Telephone ([employer]) CANDY BOOTH ([id number]) 1970 F Date Time Provider Department 11/29/20 SARITHA AMAYA During your visit today, we recorded the following information about you: Allergies As of Date: 11/29/2020 Noted Allergy Reaction ACETAMINOPHEN-CODEIN E 09/06/2015 5 - Intolerance Comments: Sleep apnea EFFEXOR (VENLAFAXINE ANALOGUES) 2020 16 - Unknown NSAIDS (NON-STEROIDAL ANTI-INFLAM*09/06/19 16 14 - Other: See Comments Comments: Has not taken due to gastric bypass surgery in the past SULFAMETHAZINE 2020 16 - Unknown Comments: Ophthalmic agents Date Reviewed: 11/08/2020 Reviewed by: Ariana Matute APRN.DRILLING ASSISTANT - Fully Assessed Reason for Visit: Lab Orders [1688] 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 - carisoprodol (SOMA) 350 mg tablet Take 350 mg by mouth four times daily. - amphetamine-dextroam phetamine 15 mg tablet Take 1 tablet by [...] mg by mouth three times daily. - oxyCODONE-acetaminop hen (PERCOCET) 5-325 mg tablet Take 1 tablet [...] Encounter Status:Closed by MICHELLE ALLISON on 11/30/20 [facility] CNOVSPon 11-08-2020 CNOVSP Visit (SP) Office (HEMASA) CANDY BOOTH ([id number]) 1970 F Date Time Provider Department 11/08/20 1:30 PM ARIANA MATUTE During your visit today, we recorded the following information about you: Temperature Pulse Respiration Blood pressure 97.2 degrees 94/minute 16/minute 118/79 Weight Height 92.4 kg 1.702 m Ariana Matute APRN.CNP 11/08/2020 3:37 PM Signed NAME: Edgar Boothli CLINIC NO.: [id number] DATE OF SERVICE: November 08, 2020 Referring [...] pill endoscopy. 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 amphetamine-dextroam phetamine 15 mg tablet Take 1 tablet by [...] cap capsule (more content not included)... Normal [facility] Comp Metabolic Panelon 11-08 Albumin [Mass/Vol] 4.4 g/dL Normal 3.9-4.9 [facility] Comment on above: Performed By: #### F ERR, B12, IRON #### [facility] [address] [phone] ALP [Catalytic activity/Vol] 111 U/L Normal 34-123 [facility] Comment on above: Performed By: #### F ERR, B12, IRON #### [place] [phone] ALT [Catalytic activity/Vol] 7 U/L Normal 7-38 [facility] Comment on above: Performed By: #### F ERR, B12, IRON #### [place] [phone] Anion gap [Moles/Vol] 7 mmol/L Low 9-18 [facility] Comment on above: Performed By: #### F ERR, B12, IRON #### [place] [phone] AST [Catalytic activity/Vol] 17 U/L Normal 13-35 [facility] Comment on above: Performed By: #### F ERR, B12, IRON #### [place] [phone] Bilirubin [Mass/Vol] mg/dL Low 0.2-1.3 [facility] Comment on above: Performed By: #### F ERR, B12, IRON #### [place] [address] [place] [phone] Calcium [Mass/Vol] 9.7 mg/dL Normal 8.5-10.2 [facility] Comment on above: Performed By: #### F ERR, B12, IRON #### [place] [address] [place] [phone] Chloride [Moles/Vol] 100 mmol/L Normal 97-105 [facility] Comment on above: Performed By: #### F ERR, B12, IRON #### [place] [address] [place] [address] CO2 [Moles/Vol] 26 mmol/L Normal 22-30 [facility] Comment on above: Performed By: #### F Anthony VILLAFANA, IRON #### [facility] [address] [place] [address] Creatinine [Mass/Vol] 0.63 mg/dL Normal 0.58-0.96 [facility] Comment on above: Performed By: #### F BRODERICK B12, IRON #### [facility] [address] [place] [address] eGFR- Amer. >60 Normal [facility] Comment on above: Performed By: #### F Anthony VILLAFANA, IRON #### [place] [address] eGFR-All Other Races >60 Normal [facility] Comment on above: Result Comment: eGFR (Estimated [...] reflect actual GFR. Performed By: #### F BRODERICK B12, IRON #### [facility] [address] [place] [id number] Glucose [Mass/Vol] 104 mg/dL High 74-99 [facility] Comment on above: Result Comment: The [place] Diabetes Association (ADA) provides guidance for cutoff [...] Standards of Medical Care in Diabetes 2016, [place] [employer]. Diabetes Care. 2016.39(Suppl 1). Performed By: #### F ERR, B12, IRON #### [place] [address] Potassium [Moles/Vol] 4.4 mmol/L Normal 3.7-5.1 [facility] Comment on above: Performed By: #### F ERR, B12, IRON #### [place] [address] Protein [Mass/Vol] 6.9 g/dL Normal 6.3-8.0 [facility] Comment on above: Performed By: #### F ERR, B12, IRON #### [place] [address] Sodium [Moles/Vol] 133 mmol/L Low 136-144 [facility] Comment on above: Performed By: #### F ERR, B12, IRON #### [place] [phone] Urea nitrogen [Mass/Vol] 9 mg/dL Normal 7-21 [facility] Comment on above: Performed By: #### F ERR, B12, IRON #### [place] [address] Ferritinon 11-08-2020 Ferritin [Mass/Vol] 13.1 ng/mL Low 14.7-205.[address] [facility] Comment on above: Performed By: #### F ERR, B12, IRON #### [place] [address] Iron and TIBCon 11-08-2020 Iron [Mass/Vol] 29 ug/dL Low 41-186 [facility] Comment on above: Performed By: #### F ERR, B12, IRON #### [facility] [address], [place] [id number] TIBC 405 ug/dL High 232-386 [facility] Comment on above: Performed By: #### F ERR, B12, IRON #### [facility] [address], [place] [address] Transferrin Saturatn 7 % Low 15-57 [facility] Comment on above: Performed By: #### F ERR, B12, IRON #### [facility] [address], [place] [address] Remote CBCDIF (for [facility] use o nly)on 11-08-2020 Abs Baso 0.04 k/uL Normal <0.11 [facility] Abs Robeson 0.79 k/uL Normal <0.87 [facility] Abs Neut 8.64 k/uL High 1.45-7.50 [facility] Absolute nRBC <0.01 Normal <0.01 [facility] Basophils/100 WBC (Bld) 0.3 % Normal [facility] DTYPE Auto Diff Normal [facility] Eosinophils (Bld) [#/Vol] 0.11 10*3/uL Normal <0.46 [facility] Eosinophils/100 WBC (Bld) 0.9 % Normal [facility] Erythrocyte distribution width (RBC) [Ratio] 18.0 % High 11.5-15.0 [facility] Hematocrit (Bld) [Volume fraction] 34.8 % Low 36.0-46.0 [facility] Hemoglobin (Bld) [Mass/Vol] 11.2 g/dL Low 11.5-15.5 [facility] Lymphocytes (Bld) [#/Vol] 2.16 10*3/uL Normal 1.00-4.00 [facility] Lymphocytes/100 WBC (Bld) 18.4 % Normal [facility] MCH 25.5 pG Low 26.0-34.0 [facility] MCHC (RBC) [Mass/Vol] 32.2 g/dL Normal 30.5-36.0 [facility] MCV (RBC) [Entitic vol] 79.1 fL Low 80.0-100.0 [facility] Monocytes/100 WBC (Bld) 6.7 % Normal [facility] Neutrophils/100 WBC (Bld) 73.7 % Normal [facility] NRBCs 0.0 /100 WBC Normal 0 [facility] Platelet mean volume (Bld) [Entitic vol] 9.3 fL Normal 9.0-12.7 [facility] Platelets (Bld) [#/Vol] 253 10*3/uL Normal 150-400 [facility] RBC (Bld) [#/Vol] 4.40 10*6/uL Normal 3.90-5.[address] [facility] WBC (Bld) [#/Vol] 11.74 10*3/uL High 3.70-11.00 [facility] Vitamin B12on 11-08-2020 Cobalamin (Vitamin B12) [Mass/Vol] 236 pg/mL Normal 232-1245 [facility] Comment on above: Performed By: #### F ERR, B12, IRON #### [facility] [address] [address] CNPIsela 11-02-2020 SHAUNAN Telephone (HEMASA) CANDY BOOTH ([id number]) 1970 F Date Time Provider Department 11/02/20 ARIANA MATUTE During your visit today, we recorded the following information about you: Analisa Tai 11/02/2020 8:07 AM Signed Patient schedule to see you Friday11/08/20 for follow up lab. Please sign pending cbc order. 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] Prescriptions as of 11/02/2020 Sig: ALBUTEROL SULFATE HFA 90 MCG/* albuterol sulfate HFA 90 mcg/* Patient not taking: albuterol sulfate HFA 90 mcg/* AMITRIPTYLINE 50 MG TABLET Patient not taking: Reported on 10/11/2020 AMITRIPTYLINE 75 MG TABLET Take 75 mg by mouth daily at * CARISOPRODOL 350 MG TABLET Take 350 mg by mouth four pamela* DEXTROAMPHETAMINE-AM PHETAMINE* Take 1 tablet by mouth twice * [...] Take 200 mg by mouth three ti* OXYCODONE-ACETAMINOP HEN 5 MG-* Take 1 tablet by mouth [...] Encounter Status:[facility] Nurse Visit (NEFTALI) CANDY BOOTH ([id number]) 1970 F Date Time Provider Department 10/11/20 4:00 PM [facility] NURSE PAUL LINDSAY During your visit today, we recorded the following information about you: Analisa Tai 10/11/2020 4:09 PM Signed Patient Identification confirmed: yes. Injection given and documented on JUL per provider order. 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] Other Visit Diagnoses:Iron deficiency anemia due to chronic blood loss [D50.0] History of Linsey-en-Y gastric bypass [Z98.84] Order(s):TREATMENT PARAMETER-NOT NEEDED [8711897] Order #: [id number]: 1 HEMONC NURSING COMMUNICATION [[id number]] Order #: [id number]: 1 STANDING [] cyanocobalamin 1,000 mcg injectionDisp: [...] Take 350 mg by mouth four pamela* DEXTROAMPHETAMINE-AM PHETAMINE* Take 1 tablet by mouth twice * [...] Take 200 mg by mouth three ti* OXYCODONE-ACETAMINOP HEN 5 MG-* Take 1 tablet by mouth [...] gastric bypass [Z98.84] 10/11/2020 Visit Notes: >> Analisa Tai FriOctober 11, 2020 4:07 PM Status: Signed Patient Identification confirmed: yes. Injection given and documented on JUL per provider order. August Bailey Prescriptions ordered this encounter Disp Refills Start End CYANOCOBALAMIN (VIT B-12) 1,000 MCG/* 10/11/2020 10/11/2020 Route: INTRAMUSCULA Encounter Status:Closed by BAILEY ANALISA on 10/11/20 [facility] CNOVSPon 10-11-2020 CNOVSP Visit (SP) Office (HEMASA) CANDY BOOTH ([id number]) 1970 F Date Time Provider Department 10/11/20 3:15 PM SARITHA AMAYA During your visit today, we recorded the following information about you: Temperature Pulse Respiration Blood pressure 96.9 degrees 120/minute 16/minute 111/60 Weight Height 92.3 kg 1.702 m Saritha Amaya MD 10/21/2020 6:59 PM Signed NAME: Candy Booth CLINIC NO.: [id number] DATE OF SERVICE: October 11, 2020 Referring [...] pill endoscopy. 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 amphetamine-dextroam phetamine 15 mg tablet Take 1 tablet by [...] TIMES DAILY (more content not included)... Normal [facility] Comp Metabolic Panelon 10-11 Albumin [Mass/Vol] 4.2 g/dL Normal 3.9-4.9 [facility] ALP [Catalytic activity/Vol] 102 U/L Normal 34-123 [facility] ALT [Catalytic activity/Vol] 7 U/L Normal 7-38 [facility] Anion gap [Moles/Vol] 10 mmol/L Normal 9-18 [facility] AST [Catalytic activity/Vol] 19 U/L Normal 13-35 [facility] Bilirubin [Mass/Vol] mg/dL Low 0.2-1.3 [facility] Calcium [Mass/Vol] 9.7 mg/dL Normal 8.5-10.2 [facility] Chloride [Moles/Vol] 98 mmol/L Normal 97-105 [facility] CO2 [Moles/Vol] 22 mmol/L Normal 22-30 [facility] Creatinine [Mass/Vol] 0.58 mg/dL Normal 0.58-0.96 [facility] eGFR- Amer. >60 Normal [facility] eGFR-All Other Races >60 Normal [facility] Comment on above: Result Comment: eGFR (Estimated [...] [Mass/Vol] 106 mg/dL High 74-99 [facility] Comment on above: Result Comment: The [place] Diabetes Association (ADA) provides guidance for cutoff [...] Standards of Medical Care in Diabetes 2016, [place] [employer]. Diabetes Care. 2016.39(Suppl 1). Potassium [Moles/Vol] 4.2 mmol/L Normal 3.7-5.1 [facility] Protein [Mass/Vol] 7.2 g/dL Normal 6.3-8.0 [facility] Sodium [Moles/Vol] 130 mmol/L Low 136-144 [facility] Urea nitrogen [Mass/Vol] 3 mg/dL Low 7-21 [facility] Ferritinon 10-11-2020 Ferritin [Mass/Vol] 23.6 ng/mL Normal 14.7-205.[address] [facility] Comment on above: Performed By: #### I RYAN, B12, SERFOL, FERR #### [facility] [employer] [address], [place] [address] Folate, Serumon 10-11-2020 Folate [Mass/Vol] 12.7 ng/mL Normal >4.7 [facility] Comment on above: Performed By: #### I RYAN, B12, SERFOL, FERR #### [facility] [address] [place] [place] [address] Iron and TIBCon 10-11-2020 Iron [Mass/Vol] 22 ug/dL Low 41-186 [facility] Comment on above: Performed By: #### I RYAN, B12, SERFOL, FERR #### [facility] [address], [place] [address] TIBC 386 ug/dL Normal 232-386 [facility] Comment on above: Performed By: #### I RYAN, B12, SERFOL, FERR #### [facility] [address] [place] [address] Transferrin Saturatn 6 % Low 15-57 [facility] Comment on above: Performed By: #### I RYAN, B12, SERFOL, FERR #### [facility] [address] [place] [address] LDon 10-11-2020 LD 182 U/L Normal 135-214 [facility] Remote CBCDIF (for [facility] use o nly)on 10-11-2020 Abs Baso 0.05 k/uL Normal <0.11 [facility] Abs Robeson 0.67 k/uL Normal <0.87 [facility] Abs Neut 6.73 k/uL Normal 1.45-7.50 [facility] Absolute nRBC <0.01 Normal <0.01 [facility] Basophils/100 WBC (Bld) 0.5 % Normal [facility] DTYPE Auto Diff Normal [facility] Eosinophils (Bld) [#/Vol] 0.13 10*3/uL Normal <0.46 [facility] Eosinophils/100 WBC (Bld) 1.4 % Normal [facility] Erythrocyte distribution width (RBC) [Ratio] 18.4 % High 11.5-15.0 [facility] Hematocrit (Bld) [Volume fraction] 34.7 % Low 36.0-46.0 [facility] Hemoglobin (Bld) [Mass/Vol] 11.0 g/dL Low 11.5-15.5 [facility] Lymphocytes (Bld) [#/Vol] 2.00 10*3/uL Normal 1.00-4.00 [facility] Lymphocytes/100 WBC (Bld) 20.9 % Normal [facility] MCH 25.7 pG Low 26.0-34.0 [facility] MCHC (RBC) [Mass/Vol] 31.7 g/dL Normal 30.5-36.0 [facility] MCV (RBC) [Entitic vol] 81.1 fL Normal 80.0-100.0 [facility] Monocytes/100 WBC (Bld) 7.0 % Normal [facility] Neutrophils/100 WBC (Bld) 70.2 % Normal [facility] NRBCs 0.0 /100 WBC Normal 0 [facility] Platelet mean volume (Bld) [Entitic vol] 9.7 fL Normal 9.0-12.7 [facility] Platelets (Bld) [#/Vol] 338 10*3/uL Normal 150-400 [facility] RBC (Bld) [#/Vol] 4.28 10*6/uL Normal 3.90-5.[address] [facility] WBC (Bld) [#/Vol] 9.58 10*3/uL Normal 3.70-11.[address] [facility] Vitamin B12on 10-11-2020 Cobalamin (Vitamin B12) [Mass/Vol] 188 pg/mL Low 232-1245 [facility] Comment on above: Performed By: #### I RYAN, B12, SERFOL, FERR #### [facility] [address] [place] [address] FLUORO FOR SURGICAL PROCEDUR ESon 02-09-2018 FLUORO FOR SURGICAL PROCEDURES EXAMINATION: FLUORO FOR SURGICAL PROCEDURESCLINICAL HISTORY: lumbar diskectomy COMPARISONS: None available.FINDINGS: 2 PA intraoperative spot images were obtained. The first shows metallic hemostat tip overlying the interspinous process space at L4-5. The second shows soft tissue retraction device and a hemostat directed toward the L4-5 intervertebral space.CONCLUSION: UNREMARKABLE INTRAOPERATIVE FLUOROSCOPY DOCUMENTATIONInterpr eted by:FANG Angeligned by:Callum Salinas MD02/09/18inal result Normal [facility] Surgical Specimenon 02-10-20 Surgical Specimen Invalid Interpretation Code [facility] Comment on above: Result Comment: [facility] [address] [id number] [phone] SURGICAL PATHOLOGY REPORTPatient Name: CANDY BOOTH Accession No: [id number] Age Sex: 1970 Location: DIS ORPOOLNONAccount No: [id number] Collected: 02/09/2018Med Rec No: [id number] Received: 02/09/2018Attend Phys: RONAL REJI Completed: 02/11/2018Perform Phys: RONAL YOOFINAL DIAGNOSIS:DISC TISSUE, L4-5, LEFT-DEGENERATED CARTILAGE. SIVES/SIVESCLINICAL INFORMATION:L4-5 left HNP. Disk.SPECIMEN:DiscGROSS DESCRIPTION:Specimen container is labeled with the patient's name and designated spine . In formalin are multiple irregular shaggy fragments of villarreal andpink soft and firm tissue measuring in aggregate 3 x 2.5 x 0.5 cm.Majority of tissue is submitted in two cassettes. PUNEET/HUBERTCPT: [id number] ROMERO M.D. 02/11/2018 Electronically signed out by Page 1 of 1 Basic Metabolic Panelon 01-24 Anion gap 3 molar conc 12 mmol/L Normal 7-13 [facility] Calcium mass conc 9.2 mg/dL Normal 8.6-10.2 [facility] Chloride molar conc 102 mmol/L Normal 98-107 [facility] CO2 molar conc 25 mmol/L Normal 22-29 [facility] Creatinine mass conc 0.42 mg/dL Low 0.50-0.90 [facility] GFR/1.73 sq M predicted among blacks MDRD vol rate/area (S/P/Bld) mL/min/{1.73_m2} Normal >60 [facility] Comment on above: Result Comment: >60 mL/min/1.73m2 EGFR, calc. for ages 18 and older using theMDRD formula (not corrected for weight), is valid for stablerenal function. GFR/1.73 sq M.predicted MDRD vol rate/area mL/min/{1.73_m2} Normal >60 [facility] Comment on above: Result Comment: >60 mL/min/1.73m2 EGFR, calc. for ages 18 and older using theMDRD formula (not corrected for weight), is valid for stablerenal function. Glucose mass conc 82 mg/dL Normal 74-109 [facility] Potassium molar conc 4.2 mmol/L Normal 3.5-5.1 [facility] Sodium molar conc 139 mmol/L Normal 132-144 [facility] Urea nitrogen mass conc 6 mg/dL Normal 6-20 [facility] CBC With Platelet No Differe ntialon 02-06-2018 Erythrocyte distribution width Auto Ratio (RBC) 20.2 % Critically high 11.5-14.5 [facility] Hematocrit Auto Volume Fraction (Bld) 36.3 % Low 37.0-47.0 [facility] Hemoglobin mass conc (Bld) 11.5 g/dL Low 12.0-16.0 [facility] MCH Auto Entitic mass (RBC) 24.1 pg Low 27.0-31.3 [facility] MCHC Auto mass conc (RBC) 31.7 % Low 33.0-37.0 [facility] MCV Auto Entitic volume (RBC) 76.0 fL Low 82.0-100.0 [facility] Platelets Auto #/vol (Bld) 203 10*3/uL Normal 130-400 [facility] RBC Auto #/vol (Bld) 4.78 10*6/uL Normal 4.20-5.40 [facility] WBC Auto #/vol (Bld) 4.9 10*3/uL Normal 4.8-10.8 [facility] Partial Thromboplastin Timeo n 02-06-2018 aPTT Coag time (Bld) 26.6 s Normal 21.6-35.4 [facility] Comment on above: Result Comment: Hepa rin Therapeutic Range: 38.8 - 54.6 seconds. Prothrombin Timeon 8 INR Coag RelTime (PPP) 0.9 {INR} Normal [facility] Comment on above: Result Comment: [...] Coag time (PPP) 9.4 s Low 9.6-12.3 [facility] Type and Screen Capture 3 sc rn cellon 02-06-2018 Bilirubin mass conc PATIENT: EMMY Acuña LOC: ZEVISABELLA# : [id number] : 1970 SEX: FORDERED BY: EMILY LUCERO ORDERED : 02/06/2018 07:42 COLLECTED: 02/06/2018 08:25ORDER : [id number] RECEIVED : 02/06/2018 08:25 ---TEST NAME RESULT UNITS RANGES ABN FL STABORH Capture O NEG FAntibody 3 Cell Scrn Captu NEG F Normal [facility] Urinalysis, reflex to cultur constantin 02-06-2018 Bilirubin Ql (U) Negative Normal Negative [facility] Clarity Nom (U) Clear Normal Clear [facility] Color Nom (U) Yellow Normal Straw/Cheshire [facility] Glucose Ql (U) Negative Normal Negative [facility] Hemoglobin Test strip Ql (U) Negative Normal Negative [facility] Ketones Ql (U) Negative Normal Negative [facility] Leukocyte esterase Test strip Ql (U) Negative Normal Negative [facility] Nitrite Test strip Ql (U) Negative Normal Negative [facility] pH Test strip (U) 6.0 [pH] Normal 5.0-9.0 [facility] Protein Test strip Ql (U) Negative Normal Negative [facility] Specific gravity Relative Density (U) 1.009 Normal 1.005-1.03 [facility] Urine Reflexed to Culture Not Indicated Normal [facility] Urobilinogen Test strip Qn (U) 0.2 {[place]'U}/dL Normal < 2.0 [facility] Vital Signs Date Time Vital Sign Value Performing Clinician Facility 10-20-2024 16:01-0400 Body height 170.18 cm [facility] 10-20-2024 16:01-0400 Body mass index (BMI) [Ratio] 29.7 kg/m2 [facility] 10-20-2024 16:01-0400 Body temperature 97 [degF] [facility] 10-20-2024 16:01-0400 Body weight 86.18 kg [facility] 10-20-2024 16:01-0400 Diastolic blood pressure 75 mm[Hg] [facility] 10-20-2024 16:01-0400 Heart rate 117 /min [facility] 10-20-2024 16:01-0400 Systolic blood pressure 103 mm[Hg] [facility] 07-27-2024 16:10-0500 Body temperature 97.3 [degF] [facility] 06-11-2024 10:00-0500 Body temperature 98.29 [degF] Jovana Holloway MD Work Phone: [facility] 06-11-2024 10:00-0500 Diastolic blood pressure 83 mm[Hg] Jovana Holloway MD Work Phone: [facility] 06-11-2024 10:00-0500 Heart rate 105 /min Jovana Holloway MD Work Phone: [facility] 06-11-2024 10:00-0500 Respiratory rate 16 /min Jovana Holloway MD Work Phone: [facility] [employer] 06-11-2024 10:00-0500 SaO2% (BldA) [Mass fraction] 92 % Jovana Holloway MD Work Phone: [facility] [employer] 06-11-2024 10:00-0500 Systolic blood pressure 137 mm[Hg] Jovana Holloway MD Work Phone: [facility] [employer] 06-08-2024 12:37-0500 Body height 170.2 cm Jovana Holloway MD Work Phone: [facility] [employer] 06-08-2024 12:37-0500 Body mass index (BMI) [Ratio] 30.67 kg/m2 Jovana Holloway MD Work Phone: [facility] [employer] 06-08-2024 12:37-0500 Body weight 88.81 kg Jovana Holloway MD Work Phone: [facility] 05-07-2024 09:22-0500 Body height 162.6 cm Yossi Hunter MD Work Phone: [facility] 05-07-2024 09:22-0500 Body mass index (BMI) [Ratio] 32.61 kg/m2 Yossi Hunter MD Work Phone: [facility] 05-07-2024 09:22-0500 Body weight 86.18 kg Yossi Hunter MD Work Phone: [facility] 05-07-2024 09:22-0500 Diastolic blood pressure 80 mm[Hg] Yossi Hunter MD Work Phone: [facility] 05-07-2024 09:22-0500 Heart rate 100 /min Yossi Hunter MD Work Phone: [facility] 05-07-2024 09:22-0500 Systolic blood pressure 126 mm[Hg] Yossi Hunter MD Work Phone: [facility] 04-29-2024 15:37-0500 Body height 170.18 cm Maureen Mitchell MD Work Phone: [facility] 04-29-2024 15:37-0500 Body mass index (BMI) [Ratio] 29.7 kg/m2 Maureen Mitchell MD Work Phone: [facility] 04-29-2024 15:37-0500 Body weight 86 kg Maureen Mitchell MD Work Phone: [facility] 04-29-2024 15:37-0500 Diastolic blood pressure 85 mm[Hg] Maureen Mitchell MD Work Phone: [facility] 04-29-2024 15:37-0500 Heart rate 120 /min Maureen Mitchell MD Work Phone: [facility] 04-29-2024 15:37-0500 Systolic blood pressure 119 mm[Hg] Maureen Mitchell MD Work Phone: [facility] 04-08-2024 15:03-0500 Body height 170.18 cm [facility] 04-08-2024 15:03-0500 Body mass index (BMI) [Ratio] 29.7 kg/m2 [facility] 04-08-2024 15:03-0500 Body weight 86.18 kg [facility] 04-08-2024 15:03-0500 Diastolic blood pressure 76 mm[Hg] [facility] 04-08-2024 15:03-0500 Heart rate 114 /min [facility] 04-08-2024 15:03-0500 Systolic blood pressure 108 mm[Hg] [facility] 04-07-2024 08:38-0500 Diastolic blood pressure 68 mm[Hg] Yossi Hunter MD Work Phone: [facility] 04-07-2024 08:38-0500 Heart rate 99 /min Yossi Hunter MD Work Phone: [facility] 04-07-2024 08:38-0500 Systolic blood pressure 110 mm[Hg] Yossi Hunter MD Work Phone: [facility] 03-30-2024 13:56-0500 Body height 167.64 cm [facility] 03-30-2024 13:56-0500 Body mass index (BMI) [Ratio] 28.8 kg/m2 [facility] 03-30-2024 13:56-0500 Body temperature 97.7 [degF] [facility] 03-30-2024 13:56-0500 Body weight 81 kg [facility] 03-30-2024 13:56-0500 Diastolic blood pressure 80 mm[Hg] [facility] 03-30-2024 13:56-0500 Heart rate 108 /min [facility] 03-30-2024 13:56-0500 Systolic blood pressure 112 mm[Hg] [facility] 02-26-2024 15:00-0400 Body height 167.64 cm [facility] 02-26-2024 15:00-0400 Body mass index (BMI) [Ratio] 29.8 kg/m2 [facility] 02-26-2024 15:00-0400 Body weight 83.91 kg [facility] 02-26-2024 15:00-0400 Diastolic blood pressure 88 mm[Hg] [facility] 02-26-2024 15:00-0400 Heart rate 122 /min [facility] 02-26-2024 15:00-0400 Respiratory rate 18 /min [facility] 02-26-2024 15:00-0400 SaO2% (BldA) [Mass fraction] 91 % [facility] 02-26-2024 15:00-0400 Systolic blood pressure 132 mm[Hg] [facility] 01-30-2024 11:32-0400 Body height 167.64 cm [facility] 01-30-2024 11:32-0400 Body mass index (BMI) [Ratio] 27.4 kg/m2 [facility] 01-30-2024 11:32-0400 Body weight 77.11 kg [facility] 01-30-2024 11:32-0400 Diastolic blood pressure 75 mm[Hg] [facility] 01-30-2024 11:32-0400 Heart rate 108 /min [facility] 01-30-2024 11:32-0400 Systolic blood pressure 115 mm[Hg] [facility] 01-20-2024 13:55-0400 Body height 167.64 cm [facility] 01-20-2024 13:55-0400 Body mass index (BMI) [Ratio] 27.2 kg/m2 [facility] 01-20-2024 13:55-0400 Body weight 76.65 kg [facility] 01-20-2024 13:55-0400 Diastolic blood pressure 62 mm[Hg] [facility] 01-20-2024 13:55-0400 Heart rate 130 /min [facility] 01-20-2024 13:55-0400 SaO2% (BldA) [Mass fraction] 75 % [facility] 01-20-2024 13:55-0400 Systolic blood pressure 76 mm[Hg] [facility] 01-05-2024 15:46-0400 Body temperature 98.01 [degF] Keli Rabago MD Work Phone: [employer] 01-05-2024 15:46-0400 Diastolic blood pressure 71 mm[Hg] Keli Rabago MD Work Phone: [employer] 01-05-2024 15:46-0400 Heart rate 89 /min Keli Rabago MD Work Phone: [employer] 01-05-2024 15:46-0400 Respiratory rate 18 /min Keli Rabago MD Work Phone: [employer] 01-05-2024 15:46-0400 SaO2% (BldA) [Mass fraction] 91 % eKli Rabago MD Work Phone: [employer] 01-05-2024 15:46-0400 Systolic blood pressure 106 mm[Hg] Keli Rabago MD Work Phone: [employer] [facility] 01-05-2024 06:00-0400 Body mass index (BMI) [Ratio] 31.97 kg/m2 Keli Rabago MD Work Phone: [facility] 01-05-2024 06:00-0400 Body weight 92.6 kg Keli Rabago MD Work Phone: [facility] 01-02-2024 14:46-0400 Body height 170.2 cm Keli Rabago MD Work Phone: [facility] 12-18-2023 13:49-0400 Body height 167.64 cm [facility] 12-18-2023 13:49-0400 Body mass index (BMI) [Ratio] 29.3 kg/m2 [facility] 12-18-2023 13:49-0400 Body weight 82.55 kg [facility] 12-18-2023 13:49-0400 Diastolic blood pressure 61 mm[Hg] [facility] 12-18-2023 13:49-0400 Heart rate 128 /min [facility] 12-18-2023 13:49-0400 Systolic blood pressure 85 mm[Hg] [facility] 12-11-2023 16:13-0400 Body height 167.64 cm [facility] 12-11-2023 16:13-0400 Body mass index (BMI) [Ratio] 32 kg/m2 [facility] 12-11-2023 16:13-0400 Body temperature 97 [degF] [facility] 12-11-2023 16:13-0400 Body weight 90 kg [facility] 12-11-2023 16:13-0400 Diastolic blood pressure 78 mm[Hg] [facility] 12-11-2023 16:13-0400 Heart rate 117 /min [facility] 12-11-2023 16:13-0400 Systolic blood pressure 123 mm[Hg] [facility] 10-14-2023 16:06-0400 Body temperature 97.9 [degF] [facility] 10-14-2023 16:06-0400 Heart rate 116 /min [facility] 10-14-2023 16:06-0400 SaO2% (BldA) [Mass fraction] 89 % [facility] 09-22-2023 14:17-0400 Body height 167.64 cm [facility] 09-22-2023 14:17-0400 Diastolic blood pressure 77 mm[Hg] [facility] 09-22-2023 14:17-0400 Heart rate 66 /min [facility] 09-22-2023 14:17-0400 Systolic blood pressure 109 mm[Hg] [facility] 09-12-2023 09:25-0400 Body height 167.64 cm [facility] 09-12-2023 09:25-0400 Body mass index (BMI) [Ratio] 31.3 kg/m2 [facility] 09-12-2023 09:25-0400 Body temperature 97.3 [degF] [facility] 09-12-2023 09:25-0400 Body weight 88 kg [facility] 09-12-2023 09:25-0400 Diastolic blood pressure 68 mm[Hg] [facility] 09-12-2023 09:25-0400 Heart rate 113 /min [facility] 09-12-2023 09:25-0400 Systolic blood pressure 103 mm[Hg] [facility] 08-26-2023 15:11-0400 Body height 167.64 cm [facility] 08-26-2023 15:11-0400 Body mass index (BMI) [Ratio] 30.4 kg/m2 [facility] 08-26-2023 15:11-0400 Body weight 85.5 kg [facility] 08-26-2023 15:11-0400 Diastolic blood pressure 65 mm[Hg] [facility] 08-26-2023 15:11-0400 Heart rate 121 /min [facility] 08-26-2023 15:11-0400 Systolic blood pressure 95 mm[Hg] [facility] 07-15-2023 12:00-0500 Diastolic blood pressure 56 mm[Hg] [address] 07-15-2023 12:00-0500 Heart rate 65 /min [address] 07-15-2023 12:00-0500 Respiratory rate 20 /min [address] 07-15-2023 12:00-0500 Systolic blood pressure 90 mm[Hg] [address] 07-15-2023 11:56-0500 SaO2% (BldA) [Mass fraction] 94 % [address] 07-01-2023 14:27-0500 Diastolic blood pressure 98 mm[Hg] Yossi Hunter MD Work Phone: [facility] 07-01-2023 14:27-0500 Heart rate 110 /min Yossi Hunter MD Work Phone: [facility] 07-01-2023 14:27-0500 Systolic blood pressure 124 mm[Hg] Yossi Hunter MD Work Phone: [facility] 06-13-2023 12:53-0500 Body height 162.[address] 06-13-2023 12:53-0500 Body mass index (BMI) [Ratio] 32.61 kg/m2 [address] 06-13-2023 12:53-0500 Body weight 86.[address] 06-13-2023 12:53-0500 Diastolic blood pressure 60 mm[Hg] [address] 06-13-2023 12:53-0500 Systolic blood pressure 110 mm[Hg] [address] 05-27-2023 14:04-0500 Body height 162.6 cm Yossi Hunter MD Work Phone: [facility] 05-27-2023 14:04-0500 Body mass index (BMI) [Ratio] 32.77 kg/m2 Yossi Hunter MD Work Phone: [facility] 05-27-2023 14:04-0500 Body weight 86.59 kg Yossi Hunter MD Work Phone: [facility] 05-27-2023 14:04-0500 Diastolic blood pressure 82 mm[Hg] Yossi Hunter MD Work Phone: [facility] 05-27-2023 14:04-0500 Heart rate 112 /min Yossi Hunter MD Work Phone: [facility] 05-27-2023 14:04-0500 Systolic blood pressure 122 mm[Hg] Yossi Hunter MD Work Phone: [facility] 03-13-2023 15:30-0400 Body height 167.64 cm Maureen Mitchell Other [employer] Other 03-13-2023 15:30-0400 Body mass index (BMI) [Ratio] 30.99 kg/m2 Maureen Mitchell Other [employer] Other 03-13-2023 15:30-0400 Body weight 87.09 kg Maureen Mitchell Other [employer] Other 03-13-2023 15:30-0400 Diastolic blood pressure 67 mm[Hg] Maureen Mitchell Other [employer] Other 03-13-2023 15:30-0400 Systolic blood pressure 106 mm[Hg] Maureen Mitchell Other [employer] Other 07-30-2022 15:45-0500 Body height 167.64 cm Maureen Mitchell Other [employer] Other 07-30-2022 15:45-0500 Body mass index (BMI) [Ratio] 33.25 kg/m2 Maureen Mitchell Other [employer] Other 07-30-2022 15:45-0500 Body weight 93.44 kg Maureen Mitchell Other [employer] Other 07-30-2022 15:45-0500 Diastolic blood pressure 92 mm[Hg] Maureen Mitchell Other [employer] Other 07-30-2022 15:45-0500 Systolic blood pressure 158 mm[Hg] Maureen Mitchell Other [employer] Other 11-23-2021 14:27-0400 Blood Pressure Location Ibrahima NILL [facility] [place] 11-23-2021 14:27-0400 Diastolic blood pressure 86 mm[Hg] Ibrahima NILL [facility] [place] 11-23-2021 14:27-0400 Heart rate 72 /min Ibrahima NILL [facility] [place] 11-23-2021 14:27-0400 Respiratory rate 16 /min Ibrahima NILL General [facility] [place] 11-23-2021 14:27-0400 Systolic blood pressure 126 mm[Hg] Ibrahima NILL [facility] [place] Encounters Encounter Date Encounter Type Care Provider Facility Start: 01-18-2025 End: 01-18-2025 ambulatory Maureen Mitchell MD Work Phone: [facility] Work Phone: Start: 01-18-2025 End: 01-18-2025 Patient encounter procedure Maureen Mitchell MD -[facility] Work Phone: Start: 01-11-2025 End: 01-11-2025 ambulatory Maureen Mitchell MD Work Phone: [facility] Work Phone: Start: 01-11-2025 End: 01-11-2025 [facility] Start: 12-23-2024 Non-patient / Non-visit Maureen Skelton [facility] Work Phone: Start: 12-16-2024 ambulatory Neli Portillo Facility:[facility] Start: 12-13-2024 Non-patient / Non-visit [facility] Work Phone: Start: 12-07-2024 Non-patient / Non-visit Maureen Skelton [facility] Work Phone: Start: 12-05-2024 [facility] Start: 12-04-2024 [facility] Work [facility]: Start: 12-03-2024 [facility] Work [facility]: Start: 12-02-2024 [facility] Work [facility]: Start: 12-01-2024 [facility] Work [facility]: Start: 11-30-2024 Non-[facility] Work [facility]: Start: 10-20-2024 End: 10-20-2024 ambulatory [facility] Work Phone: Start: 10-20-2024 End: 10-20-2024 Patient encounter procedure [facility] Work Phone: Start: 07-27-2024 End: 07-27-2024 ambulatory [facility] Work Phone: Start: 07-27-2024 End: 07-27-2024 Patient encounter procedure [facility] Work Phone: Start: 06-30-2024 End: 06-30-2024 ambulatory Maureen Mitchell MD Work Phone: [facility] Work Phone: Start: 06-30-2024 End: 06-30-2024 Patient encounter procedure Maureen Mitchell MD Work Phone: [facility] Work Phone: Start: 06-11-2024 Non-patient / Non-visit Maureen Mitchell MD Work Phone: [facility] Work Phone: Start: 06-08-2024 End: 06-11-2024 Evaluation and management of inpatient Jovana Holloway MD Work Phone: [facility] Start: 05-28-2024 End: 05-28-2024 ambulatory Maureen Mitchell MD Work Phone: [facility] Work Phone: Start: 05-28-2024 End: 05-28-2024 Patient encounter procedure Maureen Mitchell MD Work Phone: [facility] Work Phone: Start: 05-07-2024 End: 05-07-2024 Office outpatient visit 25 minutes Yossi Hunter MD Work Phone: [facility] Comment on above: Heart valve disease; Dilation of aorta ([facility]-HCC); Essential hypertension; BMI 32.0-32.9,adult; Smoker Start: 05-07-2024 End: 05-07-2024 ambulatory YOSSI HUNTER [facility] Start: 05-06-2024 Non-patient / Non-visit Maureen Mitchell MD Work Phone: [facility] Work Phone: Start: 04-29-2024 End: 04-29-2024 ambulatory Maureen Mitchell Facility:[facility] Start: 04-29-2024 End: 04-29-2024 Departed Referred Maureen Mitchell MD Work Phone: [facility] [place] Work Phone: Start: 04-29-2024 Encounter for other preprocedural examination Maureen Mitchell [facility] Start: 04-29-2024 End: 04-29-2024 Patient encounter procedure Maureen Mitchell MD Work Phone: [facility] Work Phone: Start: 04-08-2024 Patient encounter status Laura Mitchell MD Work Phone: [facility] Start: 04-08-2024 Preprocedural examination done Maureen Mitchell MD Work Phone: [facility] Start: 04-08-2024 End: 04-08-2024 ambulatory [facility] Work Phone: Start: 04-08-2024 End: 04-08-2024 Encounter for other preprocedural examination Maureen Mitchell MD Work Phone: [facility] Start: 04-08-2024 End: 04-08-2024 Patient encounter procedure [facility] Work Phone: Start: 04-07-2024 End: 04-07-2024 Office outpatient visit 25 minutes Yossi Hunter MD Work Phone: [facility] Comment on above: Pre-operative cleara nce; Pre-op examination; Heart valve disease; Dilation of aorta (CMS-HCC); Essential hypertension; Smoker Start: 04-07-2024 End: 04-07-2024 Preoperative state Yossi Hunter MD Work Phone: [facility] Start: 04-07-2024 End: 04-07-2024 Preprocedural examination done Yossi Hunter MD Work Phone: [facility] Start: 04-07-2024 End: 04-07-2024 ambulatory [facility] Start: 04-07-2024 End: 04-07-2024 Encounter for other preprocedural examination [facility] Start: 04-06-2024 Non-patient / Non-visit Maureen Mitchell MD Work Phone: [facility] Work Phone: Start: 04-01-2024 Non-patient / Non-visit [facility] Work Phone: Start: 03-30-2024 End: 03-30-2024 ambulatory [facility] Work Phone: Start: 03-30-2024 End: 03-30-2024 Patient encounter procedure [facility] Work Phone: Start: 02-26-2024 End: 02-26-2024 ambulatory [facility] Work Phone: Start: 02-26-2024 End: 02-26-2024 Patient encounter procedure [facility] Work Phone: Start: 02-26-2024 Non-patient / Non-visit [facility] [place] Work Phone: Start: 01-30-2024 End: 01-30-2024 ambulatory [facility] Work Phone: Start: 01-30-2024 End: 01-30-2024 Patient encounter procedure [facility] Work Phone: Start: 01-20-2024 Non-patient / Non-visit [facility] Work Phone: Start: 01-20-2024 End: 01-20-2024 ambulatory [facility] Work Phone: Start: 01-20-2024 End: 01-20-2024 Patient encounter procedure [facility] Work Phone: Start: 01-12-2024 Non-patient / Non-visit [facility] Work Phone: Start: 01-12-2024 End: 01-12-2024 ambulatory Bhupinder Shelton MD Facility:[facility] Start: 01-06-2024 Non-patient / Non-visit [facility] Work Phone: Start: 01-06-2024 End: 01-11-2024 Evaluation and management of inpatient TARUN ARNOLD [facility] Start: 01-06-2024 Non-patient / Non-visit [facility] Work Phone: Start: 12-30-2023 End: 01-05-2024 Evaluation and management of inpatient SHAIKH ANA PAULA [facility] Comment on above: Syncope, unspecified syncope type (Primary Dx) Start: 12-30-2023 Non-patient / Non-visit [facility] Work Phone: Start: 12-29-2023 Non-patient / Non-visit [facility] Work Phone: Start: 12-28-2023 End: 12-30-2023 Non-patient / Non-visit [facility] Work Phone: Start: 12-28-2023 Non-patient / Non-visit [facility] Work Phone: Start: 12-18-2023 End: 12-18-2023 ambulatory [facility] Work Phone: Start: 12-18-2023 End: 12-18-2023 Patient encounter procedure [facility] Work Phone: Start: 12-11-2023 End: 12-11-2023 ambulatory [facility] Work Phone: Start: 12-11-2023 End: 12-11-2023 Patient encounter procedure [facility] Work Phone: Start: 11-11-2023 End: 11-11-2023 ambulatory DARLENE GONZALEZ Not Available Start: 11-10-2023 Non-patient / Non-visit [facility] Work Phone: Start: 11-10-2023 Non-patient / Non-visit [facility] Work Phone: Start: 10-22-2023 End: 10-22-2023 ambulatory DOROTHY B APLING Not Available Start: 10-22-2023 End: 10-22-2023 ambulatory DOROTHY B APLING Not Available Start: 10-14-2023 End: 10-14-2023 ambulatory [facility] Work Phone: Start: 10-14-2023 End: 10-14-2023 Patient encounter procedure [facility] Work Phone: Start: 09-22-2023 End: 09-22-2023 ambulatory [facility] Work Phone: Start: 09-22-2023 End: 09-22-2023 Patient encounter procedure [facility] Work Phone: Start: 09-12-2023 End: 09-12-2023 ambulatory [facility] Work Phone: Start: 09-12-2023 End: 09-12-2023 Patient encounter procedure [facility] Work Phone: Start: 09-03-2023 Non-patient / Non-visit [facility] Work Phone: Start: 08-26-2023 End: 08-26-2023 ambulatory [facility] Work Phone: Start: 08-26-2023 End: 08-26-2023 Patient encounter procedure [facility] Work Phone: Start: 07-23-2023 Non-patient / Non-visit [facility] Work Phone: Start: 07-23-2023 Non-patient / Non-visit [facility] Work Phone: Start: 07-15-2023 End: 07-15-2023 Subsequent hospital visit by physician Jyotsna [id number] Ct [facility] Comment on above: Essential hypertensi on; Shortness of breath; Angina pectoris, unstable (CMS/HCC) Start: 07-15-2023 End: 07-15-2023 ambulatory [facility] Start: 07-07-2023 End: 07-07-2023 ambulatory Maureen Mitchell Other [employer] Other Start: 07-07-2023 Telephone encounter Maureen Mitchell [facility] Start: 07-01-2023 End: 07-01-2023 Office outpatient visit 25 minutes Yossi Hunter MD Work Phone: [facility] Comment on above: Angina pectoris, uns table (CMS/HCC) (Primary Dx); Dilation of aorta (CMS/HCC); Essential hypertension; Heart valve disease; Shortness of breath; Smoker; BMI 32.0-32.9,adult Start: 07-01-2023 End: 07-01-2023 ambulatory [facility] Amb[facility] Start: 06-19-2023 End: 06-19-2023 ambulatory Maureen Mitchell Other [employer] Other Start: 06-19-2023 Office outpatient vi sit 15 minutes Maureen Mitchell [facility] Start: 06-13-2023 End: 06-13-2023 Subsequent hospital visit by physician Jyotsna Alcala305 Echo/Vasc 3 [facility] Comment on above: Shortness of breath; Heart valve disease; Dizziness; Dilation of aorta (CMS/HCC) Start: 06-13-2023 End: 06-13-2023 ambulatory [facility] Start: 06-02-2023 End: 06-02-2023 ambulatory Maureen Mitchell Other [employer] Other Start: 06-02-2023 Telephone encounter Maureen Mitchell [facility] Start: 05-27-2023 End: 05-27-2023 Office outpatient new 45 minutes Yossi Hunter MD Work Phone: [facility] Comment on above: Shortness of breath; Essential hypertension; BMI 32.0-32.9,adult; Smoker; Heart valve disease; Dizziness; Dilation of aorta (CMS/HCC) Start: 05-27-2023 End: 05-27-2023 ambulatory [facility] Start: 05-15-2023 End: 05-15-2023 ambulatory Maureen Mitchell Other [employer] Other Start: 05-15-2023 Telephone encounter Maureen Mitchell [facility] Start: 05-01-2023 End: 05-01-2023 ambulatory Maureen Mitchell Other [employer] Other Start: 05-01-2023 Telephone encounter Maureen Mitchell [facility] Start: 04-21-2023 End: 04-21-2023 ambulatory Maureen Mitchell Other [employer] Other Start: 04-21-2023 Telephone encounter Maureen Mitchell [facility] Start: 04-03-2023 (Televisit) Televisit Maureen Manzo [facility] Start: 04-03-2023 End: 04-03-2023 ambulatory Maureen Mitchell Other [employer] Other Start: 04-03-2023 Telephone encounter Maureen Mitchell [facility] Start: 04-01-2023 End: 04-01-2023 ambulatory Maureen Mitchell Other [employer] Other Start: 04-01-2023 Telephone encounter Maureen Mitchell [facility] Start: 03-13-2023 End: 03-13-2023 ambulatory Maureen Mitchell Other [employer] Other Start: 03-13-2023 Office outpatient vi sit 25 minutes Maureen Mitchell [facility] Start: 03-13-2023 Telephone encounter Maureen Mitchell [facility] Start: 02-13-2023 End: 02-13-2023 ambulatory Maureen Mitchell Other [employer] Other Start: 02-13-2023 Telephone encounter Maureen Mitchell [facility] Start: 01-30-2023 End: 01-30-2023 ambulatory Maureen Mitchell Other [employer] Other Start: 01-30-2023 Telephone encounter Maureen Mitchell [facility] Start: 01-16-2023 End: 01-16-2023 ambulatory Maureen Mitchell Other [employer] Other Start: 01-16-2023 Telephone encounter Maureen Mitchell [facility] Start: 12-31-2022 End: 12-31-2022 ambulatory Maureen Mitchell Other [employer] Other Start: 12-31-2022 Telephone encounter Maureen Mitchell [facility] Start: 12-06-2022 End: 12-06-2022 ambulatory Maureen Mitchell Other [employer] Other Start: 12-06-2022 Telephone encounter Maureen Mitchell [facility] Start: 11-18-2022 End: 11-18-2022 ambulatory Maureen Mitchell Other [employer] Other Start: 11-18-2022 Telephone encounter Maureen Mitchell [facility] Start: 11-06-2022 End: 11-06-2022 ambulatory Maureen Mitchell Other [employer] Other Start: 11-06-2022 Telephone encounter Maureen Mando [facility] Start: 09-19-2022 End: 09-19-2022 ambulatory Maureen Mitchell Other [employer] Other Start: 09-19-2022 Telephone encounter Maureen Mando [facility] Start: 09-10-2022 End: 09-10-2022 ambulatory Maureen Mitchell Other [employer] Other Start: 09-10-2022 Telephone encounter Maureen Mando [facility] Start: 08-22-2022 End: 08-22-2022 ambulatory Maureen Mitchell Other [employer] Other Start: 08-22-2022 Telephone encounter Maureen Mando [facility] Start: 08-19-2022 End: 08-19-2022 ambulatory Otoniel Yatesky Other [employer] Other Start: 08-19-2022 Telephone encounter Otoniel Kelly [facility] Start: 07-30-2022 End: 07-30-2022 ambulatory Maureen Mitchell Other [employer] Other Start: 07-30-2022 Office outpatient vi sit 25 minutes Maureen Mando [facility] Start: 07-25-2022 End: 07-25-2022 ambulatory Maureen Mitchell Other [employer] Other Start: 07-25-2022 Telephone encounter Maureen Mitchell [facility] Start: 07-24-2022 End: 07-24-2022 ambulatory Maureen Mitchell Other [employer] Other Start: 07-24-2022 Telephone encounter Maureen Mando [facility] Start: 03-29-2022 End: 03-30-[address] MAUREEN MITCHELL Facility:[facility] Start: 03-29-2022 Adult health examination Laura Mitchell Other [employer] Other Start: 03-25-2022 End: 03-26-[address] MAUREEN MITCHELL Facility:[facility] Start: 12-28-2021 End: 01-15-2022 ambulatory MAUREEN MITCHELL Facility:[facility] Start: 12-05-2021 Encounter for genera l adult medical examination without abnormal findings DR MAUREEN MITCHELL [facility] Start: 12-04-2021 End: 12-05-[address] IBRAHIMA GONZALEZ Facility:[facility] Start: 12-04-2021 End: 12-05-2021 Encounter for general adult medical examination without abnormal findings DR MAUREEN MITCHELL Facility:[facility] Start: 11-23-2021 End: 11-23-2021 Patient encounter procedure Ibrahima GONZALEZ [facility] Surgery [facility] Start: 11-03-2021 End: 11-03-[address] CHONG GUTIERREZ Facility:[facility] Start: 02-09-2018 End: 02-09-2018 Patient encounter [facility] [place] Start: 02-06-2018 End: 02-11-2018 Patient encounter [facility] [place] Procedures Date Procedure Procedure Detail Performing Clinician Start: 06-11-2024 Anion gap [Moles/Vol] David Diglio PA Work Phone: Start: 06-11-2024 Basic metabolic panel calcium total David Diglio PA Work Phone: Start: 06-11-2024 GLOMERULAR FILTRATION RATE, ESTIMATED David Diglio PA Work Phone: Start: 06-10-2024 Radex wrist complete minimum 3 views David Diglio PA Work Phone: Start: 06-10-2024 Anion gap [Moles/Vol] David Diglio PA Work Phone: Start: 06-10-2024 Basic metabolic panel calcium total David Diglio PA Work Phone: Start: 06-10-2024 GLOMERULAR FILTRATION RATE, ESTIMATED David Diglio PA Work Phone: Start: 06-09-2024 Ecg routine ecg w/least 12 lds i&r only Tawana Vidal MD Work Phone: Start: 06-09-2024 Ecg routine ecg w/least 12 lds i&r only Tawana Vidal MD Work Phone: Start: 06-09-2024 Anion gap [Moles/Vol] David Diglio PA Work Phone: Start: 06-09-2024 Basic metabolic panel calcium total David Diglio PA Work Phone: Start: 06-09-2024 GLOMERULAR FILTRATION RATE, ESTIMATED David Diglio PA Work Phone: Start: 06-08-2024 Radex spine 1 view specify level Jovana Holloway MD Work Phone: Start: 06-08-2024 Radex spine 1 view specify level Jovana Holloway MD Work Phone: Start: 06-08-2024 End: 06-08-2024 Arthrodesis posterior/posterolateral lumbar Jovana Holloway MD Work Phone: Start: 06-08-2024 End: 06-08-2024 Autograft spine surgery local from same incision Jovana Holloway MD Work Phone: Start: 06-08-2024 End: 06-08-2024 Ku facetectomy&foramtomy 1 sgm ea crv thrc/lmbr Jovana Holloway MD Work Phone: Start: 04-29-2024 Urine culture Maureen Mitchell MD Work Phone: Start: 04-07-2024 Ecg routine ecg w/least 12 lds w/i&r Yossi Hunter MD Work Phone: Start: 04-01-2024 MRSA Screening Culture Start: 01-05-2024 Potassium serum plasma/whole blood Keli Rabago MD Work Phone: Start: 01-05-2024 Basic metabolic panel calcium total Flaco Amaya MD Work Phone: Start: 01-04-2024 Blood count hemoglobin Martinez Winters MD Work Phone: Start: 01-04-2024 Basic metabolic panel calcium total Flaco Amaya MD Work Phone: Start: 01-03-2024 End: 01-03-2024 Assay of magnesium Wes Dumas MD Work Phone: Start: 01-03-2024 BASIC METABOLIC PANEL W/ REFLEX TO MG FOR LOW K Wes Dumas MD Work Phone: Start: 01-03-2024 Potassium serum plasma/whole blood Christopher Morataya MD Work Phone: Start: 01-02-2024 Ecg routine ecg w/least 12 lds trcg only w/o i&r Suzanne Celeste MD Work Phone: Start: 01-02-2024 Blood count hemoglobin Martinez Winters MD Work Phone: Start: 01-02-2024 Glucose blood reagent strip Christopher Roberts i, MD Work Phone: Start: 01-02-2024 Blood count hemoglobin Wes acuna MD Work Phone: Start: 01-02-2024 Blood count hemoglobin Wes acuna MD Work Phone: Start: 01-02-2024 Antibody screen Keli Rabago MD Work Phone: Start: 01-02-2024 Assay of magnesium Wes Dumas MD Work Phone: Start: 01-02-2024 BASIC METABOLIC PANEL W/ REFLEX TO MG FOR LOW K Wes Dumas MD Work Phone: Start: 01-02-2024 Blood count complete auto&auto difrntl wbc Aijaz Candice MD Work Phone: Start: 01-01-2024 End: 01-01-2024 Calcium ionized Rachel Brewer DO Work Phone: Start: 01-01-2024 LACTATE, SEPSIS Rachel Brewer DO Work Phone: Start: 01-01-2024 Vascular embolization or occlusion hemorrhage Lola Quinones [employer]LLING ASSISTANT Work Phone: Start: 01-01-2024 Ecg routine ecg w/least 12 lds trcg only w/o i&r Dain Roland MD Work Phone: Start: 01-01-2024 End: 01-01-2024 Transfusion of packed red blood cells Martinez Winters MD Work Phone: Start: 01-01-2024 Iadna s aureus methicillin resist amp probe tq Nelson George MD Work Phone: Start: 01-01-2024 Ct angio abd&plvis cntrst mtrl w/wo cntrst img Suzanne Celeste MD Work Phone: Start: 01-01-2024 End: 01-01-2024 Transfusion of packed red blood cells Suzanne Celeste MD Work Phone: Start: 01-01-2024 History of gastrointestinal tract bypass History of Linsey-en-Y gastric bypass Keli Rabago MD Work Phone: Start: 01-01-2024 Blood count hemoglobin Suzanne Bajwa Work Phone: Start: 01-01-2024 End: 01-01-2024 ESOPHAGOGASTRODUODENOSCOPY CONTROL HEMORRHAGE Jen Harvey MD Work Phone: Start: 01-01-2024 End: 01-01-2024 ESOPHAGOGASTRODUODENOSCOPY SCLEROTHERAPY Jen Harvey MD Work Phone: Start: 01-01-2024 Blood count hemoglobin Jen Harvey MD Work Phone: Start: 01-01-2024 Assay of magnesium Suzanne Celeste MD Work Phone: Start: 01-01-2024 BASIC METABOLIC PANEL W/ REFLEX TO MG FOR LOW K Jen Harvey MD Work Phone: Start: 01-01-2024 Hepatic function panel Suzanne Bajwa Work Phone: Start: 01-01-2024 Blood count hemoglobin Suzanne Bajwa Work Phone: Start: 01-01-2024 PREVIOUS SPECIMEN Suzanne Celeste MD Work Phone: Start: 12-31-2023 Blood count hemoglobin Jen Harvey MD Work Phone: Start: 12-31-2023 Ecg routine ecg w/least 12 lds trcg only w/o i&r Suzanne Celeste MD Work Phone: Start: 12-31-2023 Blood count hemoglobin Jen Harvey MD Work Phone: Start: 12-31-2023 Echo tthrc r-t 2d w/wom-mode compl spec&colr d Michael Arellano MD Work Phone: Start: 12-31-2023 Toxin/antitoxin assay tissue culture Michael Arellano MD Work Phone: Start: 12-31-2023 End: 12-31-2023 Prothrombin time Christina Watkins se [employer]LL[employer] ASSISTANT Work Phone: Start: 12-30-2023 End: 12-31-2023 Basic metabolic panel calcium total Michael Arellano MD Work Phone: Start: 12-31-2023 BLOOD BANK SPECIMEN Keli Rabago MD Work Phone: Start: 12-31-2023 Hepatic function panel Michael kathleen MD Work Phone: Start: 12-31-2023 VITAMIN B12 & FOLATE Michael schmitz MD Work Phone: Start: 12-31-2023 Urnls dip stick/tablet rgnt auto w/o microscopy Michael Arellano MD Work Phone: Start: 12-30-2023 Blood count hemoglobin Jen Harvey MD Work Phone: Start: 12-28-2023 Blood Culture 1 Start: 12-28-2023 Blood Culture 2 Start: 07-15-2023 CT ANGIO CORONARY ART WITH HEARTFLOW IF SCORE >30% YOSSI ABIOSE Start: 07-15-2023 POCT CREATININE AND GFR YOSSI ABIOSE Start: 07-15-2023 Cta hrt cornry art/bypass grfts contrst 3d post Yossi Hunter MD Work Phone: Start: 07-15-2023 Creatinine blood Interface Unspecifiedprovider Work Phone: Start: 06-13-2023 TRANSTHORACIC ECHO (TTE) COMPLETE YOSSI ABIOSE Start: 06-13-2023 Echo tthrc r-t 2d w/wom-mode compl spec&colr d Yossi Hunter MD Work Phone: Start: 02-09-2018 INCENTIVE SPIROMETRY RT RONAL REJI Start: 02-09-2018 DISCHARGE PATIENT RONAL REJI Start: 02-09-2018 SURGICAL PATHOLOGY RONAL REJI Start: 02-09-2018 INCENTIVE SPIROMETRY RT RONAL REJI Start: 02-09-2018 INITIATE OXYGEN THERAPY PROTOCOL RONAL REJI Start: 02-09-2018 FLUORO FOR SURGICAL PROCEDURES RONAL REJI Start: 02-09-2018 ASSESS RONAL REJI Start: 02-09-2018 BEDREST RONAL REJI Start: 02-09-2018 Continuous pulse oximetry RONAL REJI Start: 02-09-2018 ENCOURAGE DEEP BREATHING AND COUGHING RONAL REJI Start: 02-09-2018 INCENTIVE SPIROMETRY RT RONAL REJI Start: 02-09-2018 INITIATE OXYGEN THERAPY PROTOCOL RONAL REJI Start: 02-09-2018 NEURO/VASCULAR CHECKS RONAL REJI Start: 02-09-2018 NOTIFY PHYSICIAN (SPECIFY) RONAL REJI Start: 02-09-2018 NURSING COMMUNICATION RONAL REJI Start: 02-09-2018 VITAL SIGNS RONAL REJI Start: 02-09-2018 DIET NPO, AFTER MIDNIGHT RONAL REJI Start: 02-09-2018 INITIATE OXYGEN THERAPY PROTOCOL RONAL REJI Start: 02-09-2018 NOTIFY PHYSICIAN (SPECIFY) RONAL ERJI Start: 02-09-2018 PLACE INTERMITTENT PNEUMATIC COMPRESSION DEVICE RONAL REJI Start: 02-09-2018 PULSE OXIMETRY SPOT CHECK RONAL REJI Start: 02-09-2018 VITAL SIGNS RONAL REJI Start: 02-06-2018 Basic metabolic panel calcium total RONAL REJI Start: 02-06-2018 Blood count complete automated RONAL REJI Start: 02-06-2018 TYPE AND SCREEN RONAL REJI Start: 02-06-2018 Prothrombin time RONAL REJI Start: 02-06-2018 Thromboplastin time partial plasma/whole blood RONAL REJI Start: 02-06-2018 URINE RT REFLEX TO CULTURE RONAL REJI Start: 10-20-2017 Colonoscopy Keli Rabago MD Work Phone: Start: 05-26-2017 Colonoscopy Ibrahima GONZALEZ Start: 05-26-2017 Esophagogastroduodenoscopy Ibrahima PANDYAL Start: 02-09-2016 Substance abuse counseling Maureen Mando Other Start: 09-20-2014 General examination of patient Maureen Virgilio boone Other Start: 09-20-2014 Screening mammography Maureen Mitchell Other Appendectomy Ibrahima PANDYAL Circumferential body lift Mi sybil YAL Excision of lumbar intervertebral disc Ibrahima PANDYAL Comment on above: L4-L5 Exploratory laparotomy Marty sincere GONZALEZ 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 Keli Rabago MD Work Phone: Linsey-en-Y gastrojejunostomy Ibrahima PANDYAL Screening for malign ant neoplasm of breast Maureen Mitchell Other Total abdominal hyst erectomy with bilateral salpingo-oophorectomy Ibrahima PANDYAL Plan of Treatment Date Care Activity Detail Author Start: 10-21-2027 Screening for malign ant neoplasm of colon [facility] Start: 10-06-2024 End: 10-06-2024 Patient encounter procedure 10/06/2024 10:00 AM EDT Office Visit [facility] [address] [phone] Yossi Hunter MD [address] [facility], [address] [phone] [facility] Start: 04-29-2024 EKG 12 channel panel [facility] Start: 02-03-2024 Patient referral [facility] Work Phone: Start: 01-25-2024 COVID-19 Vaccine ( season) COVID-19 Vaccine ( season) [facility] Start: 01-25-2024 COVID-19 Vaccine ( season) COVID-19 Vaccine ( season) [facility] Start: 01-25-2024 Influenza vaccination Influenza Vacc ine (#1) [facility] Start: 01-20-2024 Patient referral [facility] Work Phone: Start: 12-30-2023 Annual Wellness Visi t (Medicare) Annual Wellness Visit (Medicare) [facility] Start: 12-25-2023 Influenza vaccination Flu vaccine (# 1) [facility] Start: 12-18-2023 Patient referral [facility] Work Phone: Start: 09-30-2023 End: 09-30-2023 Patient encounter procedure 09/30/2023 10:00 AM EDT Office Visit [facility] [address] [phone] Yossi Hunter MD [address] [facility], [address] [address] [facility] Start: 07-01-2023 End: 07-01-2024 CTA Heart and Coronary arteries WO and W contrast IV CT angio coronary art with heartflow if score >30% Imaging Routine Essential hypertension Shortness of breath Angina pectoris, unstable (CMS/HCC) Expected: 07/01/2023 (Approximate), Expires: 07/01/2024 [facility] Work Phone: Comment on above: Expected: 07/01/2023 (Approximate), Expires: 07/01/2024 Start: 07-01-2023 End: 07-01-2023 Patient encounter procedure 07/01/2023 2:00 PM EST Office Visit [facility] [address] [phone] Yossi uHnter MD [address] [facility], [address] [place], [place] [id number] [facility] Start: 05-27-2023 End: 05-27-2024 CT Chest WO contrast CT chest wo IV contrast Imaging Routine Heart valve disease Dilation of aorta (CMS/HCC) Expected: 05/27/2023 (Approximate), Expires: 05/27/2024 [facility] Work Phone: Comment on above: Expected: 05/27/2023 (Approximate), Expires: 05/27/2024 Start: 05-27-2023 End: 05-27-2025 US Heart Transthoracic Transthoracic Echo (TTE) Complete Echocardiography Routine Shortness of breath Heart valve disease Dizziness Dilation of aorta (CMS/HCC) Expected: 05/27/2023 (Approximate), Expires: 05/27/2025 [facility] Work Phone: Comment on above: Expected: 05/27/2023 (Approximate), Expires: 05/27/2025 Start: 01-24-2023 COVID-19 Vaccine () COVID-19 Vaccine () [facility] Start: 01-24-2023 Influenza vaccination Influenza Vacc ine (#1) [facility] Start: 07-08-2021 COVID-19 Vaccine (4 - Pfizer series) COVID-19 Vaccine (4 - Pfizer series) [facility] Start: 02-03-2021 Screening for malign ant neoplasm of breast Breast cancer screen [facility] Start: 2018 Shingles vaccine (1 of 2) Shingles vaccine (1 of 2) [facility] Start: 2018 Zoster Vaccines (1 o f 2) Zoster Vaccines (1 of 2) [facility] Start: 2013 Screening for malign ant neoplasm of colon [facility] Start: 2008 Lipid panel Lipids [facility] Start: 2008 Screening for malign ant neoplasm of breast Mammogram [facility] Start: 10-06-2003 Diabetes screen Diabetes screen [facility] Start: 05-17-1997 DTaP/Tdap/Td vaccine (1 - Tdap) DTaP/Tdap/Td vaccine (1 - Tdap) [facility] Start: 05-17-1997 DTaP/Tdap/Td Vaccine s (1 - Tdap) DTaP/Tdap/Td Vaccines (1 - Tdap) [facility] Start: 1989 Screening for malign ant neoplasm of cervix [facility] Start: 10-06-1987 Hepatitis B vaccine (1 of 3 - 19+ 3-dose series) Hepatitis B vaccine (1 of 3 - 19+ 3-dose series) [facility] Start: 1986 Diabetes mellitus screening Diabetes Screening [facility] Start: 1986 Hepatitis C screening U [facility] Start: 10-06-1983 HIV screening HIV screen [facility] Start: 1980 Depression Screen Depression Screen [facility] Start: 1974 Pneumococcal 0-64 ye ars Vaccine (1 of 2 - PCV) Pneumococcal 0-64 years Vaccine (1 of 2 - PCV) [facility] Start: 1974 Pneumococcal Vaccine : Pediatrics (0 to 5 Years) and At-Risk Patients (6 to 64 Years) (1 - PCV) Pneumococcal Vaccine: Pediatrics (0 to 5 Years) and At-Risk Patients (6 to 64 Years) (1 - PCV) [facility] Start: 1974 Pneumococcal Vaccine : Pediatrics (0 to 5 Years) and At-Risk Patients (6 to 64 Years) (1 of 2 - PCV) Pneumococcal Vaccine: Pediatrics (0 to 5 Years) and At-Risk Patients (6 to 64 Years) (1 of 2 - PCV) [facility] Start: 1968 HIV screening HIV Screening [facility] Start: 1968 Lipid panel Lipid Panel [facility] Start: 1968 Medicare Annual Wellness Visit Medicare Annual Wellness Visit (AWV) [facility] Start: 1968 Screening for malign ant neoplasm of colon [facility] Start: 1968 Screening for osteoporosis Bone Density Scan [facility] Start: 1968 Yearly Adult Physical Yearly Adult P hysical [facility] End: 01-02-2024 aPTT in Blood by Coagulation assay APTT Lab Routine Post Transfusion Post Transfusion Post Transfustion for 1 Occurrences starting 01/01/2024 until 01/02/2024 [facility] Comment on above: Post Transfusion Pos t Transfusion Post Transfustion for 1 Occurrences starting 01/01/2024 until 01/02/2024 End: 06-15-2024 Basic metabolic 2000 panel - Serum or Plasma Basic Metabolic Panel Lab Routine Daily for 1 Weeks starting 06/09/2024 until 06/15/2024, 3 completed [facility] Comment on above: Daily for [address] arting 06/09/2024 until 06/15/2024, 3 completed End: 01-06-2024 Basic metabolic 2000 panel - Serum or Plasma Basic Metabolic Panel Lab Routine Daily for 3 Days starting 01/04/2024 until 01/06/2024, 2 completed [place] Comment on above: Daily for 3 Days sta rting 01/04/2024 until 01/06/2024, 2 completed End: 01-06-2024 CBC W Auto Differential panel - Blood CBC with Auto Differential Lab Routine Daily for 3 Days starting 01/04/2024 until 01/06/2024, 2 completed [facility] Comment on above: Daily for 3 Days sta rting 01/04/2024 until 01/06/2024, 2 completed Comprehensive metabo lic 2000 panel - Serum or Plasma [facility] Continuous pulse oximetry Pulse oximetry, continuous Respiratory Care Routine Every 4hr until discontinued starting 01/02/2024 [facility] Comment on above: Every 4hr until disc ontinued starting 01/02/2024 End: 01-02-2024 EKG 12 Lead EKG 12 Lead ECG Routine One Time for 1 Occurrences starting 01/02/2024 until 01/02/2024 [facility] Work Phone: Comment on above: One Time for 1 Occur rences starting 01/02/2024 until 01/02/2024 End: 06-15-2024 Hemoglobin and Hematocrit Hemoglobin and Hematocrit Lab Routine Daily for 1 Weeks starting 06/09/2024 until 06/15/2024, 3 completed [facility] Comment on above: Daily for [address] arting 06/09/2024 until 06/15/2024, 3 completed End: 01-15-2024 Hemoglobin and Hematocrit Hemoglobin and Hematocrit Lab Routine Post Transfusion Post Transfusion Post Transfustion until discontinued starting 01/01/2024 [facility] Comment on above: Post Transfusion Pos t Transfusion Post Transfustion until discontinued starting 01/01/2024 End: 01-07-2024 Hemoglobin and Hematocrit Hemoglobin and Hematocrit Lab Routine Every 12 hours (Lab) for 3 Days starting 01/04/2024 until 01/07/2024, 2 completed [place] Comment on above: Every 12 hours (Lab) for 3 Days starting 01/04/2024 until 01/07/2024, 2 completed MR Brain WO contrast [facility] Oxygen therapy [Mini mum Data Set] Initiate Oxygen Therapy Protocol Respiratory Care Routine As Needed until discontinued starting 06/08/2024 [facility] Comment on above: As Needed until disc ontinued starting 06/08/2024 Oxygen therapy [Mini mum Data Set] Initiate Oxygen Therapy Protocol Respiratory Care Routine As Needed until discontinued starting 12/30/2023 [facility] Work Phone: Comment on above: As Needed until disc ontinued starting 12/30/2023 Patient Education Low back pain in adults [facility] Work Phone: Patient referral [facility] Work Phone: End: 01-01-2024 PREPARE RBC (CROSSMATCH), 1 Units PREPARE RBC (CROSSMATCH), 1 Units Blood Bank Routine Once for 1 Occurrences starting 01/01/2024 until 01/01/2024 [place] Comment on above: Once for 1 Occurrenc es starting 01/01/2024 until 01/01/2024 End: 01-02-2024 Protime-INR Protime-INR Lab Routine Post Transfusion Post Transfusion Post Transfustion for 1 Occurrences starting 01/01/2024 until 01/02/2024 [facility] Work Phone: Comment on above: Post Transfusion Pos t Transfusion Post Transfustion for 1 Occurrences starting 01/01/2024 until 01/02/2024 Spirometry panel Incentive papi metry Respiratory Care Routine Every 2hr while awake until discontinued starting 06/08/2024 [facility] Comment on above: Every 2hr while awak e until discontinued starting 06/08/2024 Urine culture [facility] Immunizations Immunization Date Immunization Notes Care Provider [facility] 05-13-2021 influenza virus vaccine, unspecified formulation Yossi Hunter MD Work Phone: [facility] Work Phone: 08-22-2020 COVID-19 Vaccine Pfi zer - Documentation Purposes Only Maureen Mitchell Other [facility] 08-02-2020 COVID-19 Vaccine Pfi zer - Documentation Purposes Only Maureen Mitchell Other [facility] 04-28-2020 influenza virus vaccine, split virus (incl. purified surface antigen) Maureen Mitchell Other [facility] Other 04-28-2020 influenza virus vaccine, unspecified formulation [facility] 03-06-2016 influenza virus vaccine, split virus (incl. purified surface antigen) Maureen Mitchell Other [facility] Other 03-06-2016 influenza virus vaccine, unspecified formulation [facility] Payers Date Payer Category Payer Unknown [id number] 2024 Private Health Insurance [id number] 2024 Self-pay [id number] 2023 Managed Care (Private) [facility] [id number] 2022 Medicare 2022 Medicare [id number] 2022 Private Health Insurance [id number]. [id number] 2022 Private Health Insurance [id number] 2014 Unknown [id number] 1968 Unknown [id number] 2.16.840.1.674919.3.579.2. 647 1968 Unknown [id number] 2.16.840.1.330387.3.579.2. 593 1968 Unknown [id number] 2.16.840.1.448023.3.579.2. 593 1968 Unknown [id number] 2.16.840.1.571377.3.579.2. 593 1968 Unknown [id number] 2.16.840.1.568559.3.579.2. 593 1968 Unknown [id number] 2.16.840.1.073243.3.579.2. 593 1968 Unknown [id number] 2.16.840.1.451018.3.579.2. 1258 1968 Unknown [id number] 2.16.840.1.761892.3.579.2. 1258 1968 Unknown [id number] 2.16.840.1.407861.3.579.2. 1258 1968 Unknown [id number] 2.16.840.1.815564.3.579.2. 1258 1968 Unknown [id number] 2.16.840.1.193100.3.579.2. 1258 1968 Unknown [id number] 2.16.840.1.450691.3.579.2. 1258 1968 Unknown [id number] 2.16.840.1.815210.3.579.2. 175 1968 Unknown [id number] 2.16.840.1.686248.3.579.2. 175 1968 Unknown [id number] 2.16.840.1.387305.3.579.2. 196 1968 Unknown [id number] 2.16.840.1.536370.3.579.2. 1245 1968 Unknown [id number] 2.16.840.1.215028.3.579.2. 1245 1968 Unknown [id number] 2.16.840.1.304598.3.579.2. 1243 1968 Unknown [id number] 2.16.840.1.352189.3.579.2. 1243 1968 Unknown [id number] 2.16.840.1.638851.3.579.2. 1243 1968 Unknown [id number] 2.16.840.1.493308.3.579.2. 1244 1968 Unknown [id number] 2.16.840.1.624284.3.579.2. 93 1968 Unknown [id number] 2.16.840.1.764710.3.579.2. 727 1959 Private Health Insurance [id number] Private Health Insurance [id number] Unknown [id number] 2.16.840.1.094646.3.579.2. 531 Unknown [id number] 2.16.840.1.357601.3.579.2. 531 Social History Date Type Detail Facility Start: 11-23-2021 Tobacco smoking status Heavy t obacco smoker (finding) [facility] Tobacco smoking status Never [facility] Start: 05-27-2023 End: 12-30-2023 Sex Assigned At Female [facility] Start: 05-27-2023 End: 04-27-2024 Tobacco smoking status NHIS Occasional tobacco smoker [facility] Work Phone: Start: 05-26-2014 End: 05-26-2021 History of tobacco use Cigarette Smoker [facility] Work Phone: Start: 05-27-2023 End: 12-30-2023 Cigarettes smoked current (pack per day) - Reported 0.5 [facility] Start: 02-06-2018 End: 05-27-2023 Tobacco use and exposure Smokeless tobacco non-user [facility] Work Phone: Start: 05-27-2023 Alcohol intake Not Asked [facility] Work Phone: Start: 05-27-2023 Alcohol Comment rarely [facility] Work Phone: Start: 1970 Sex Assigned At Not on file [facility] Work Phone: Start: 05-17-2023 End: 05-07-2024 Exposure to SARS-CoV-2 (event) Not sure [facility] Start: 07-01-2023 End: 06-09-2024 Alcohol intake Current drinker of alcohol (finding) [facility] Work Phone: Start: 05-26-2014 End: 05-26-2021 Tobacco smoking status NHIS Smoker (finding) [facility] Start: 1970 Sex Assigned At Female F [facility] Start: 04-07-2024 End: 12-30-2024 Tobacco smoking status NHIS Ex-smoker [facility] Work Phone: Start: 04-07-2024 Alcohol Comment rarely, 1x a , month or less [facility] Work Phone: Start: 08-14-2018 End: 04-08-2024 Sex Female (finding) [facility] Has the [employer], [employer], or water [employer] threatened to shut off services in your home in past 12Mo No [facility] (I/We) worried whegomez er (my/our) food would run out before (I/we) got money to buy more. Never true [facility] Start: 02-06-2018 End: 06-08-2024 Tobacco Comment started at age 13 for 4 yrs, quit then started back in 2014 [facility] Start: 06-08-2024 Alcohol Comment socially [employer] Start: 05-26-2014 Tobacco smoking stat us NVIS Smokes tobacco daily [facility] Start: 01-02-2024 Alcoholic beverage intake Current non-drinker of alcohol (finding) [facility] Sexual Orientation [facility] Medical Equipment Procedure Code Equipment Code Equipment Origin al Text Equipment Identifier Dates Floseal Hemostat [employer] 5ml Needle Free [id number] Start: 02-09-2018 Clip Braided 360 Catheter Resolution Ultra - [id number], [id number] FDA Start: 01-07-2024 Comment on above: Description: Clip pl aced at GJ junction Clip Hemostasis Mantis 2.8mm X 235cm - [id number], [id number] FDA Start: 01-07-2024 Comment on above: Description: Clip pl aced at GJ junction Allograft [place] 50x25 Mm 24 Cc Bioadapt - [id number] Start: 06-08-2024 Set Screw 5.5-6. 0 - [id number] Start: 06-08-2024 Screw Poly Solid 6.5x40 - [id number] Start: 06-08-2024 Screw Poly Solid 6.5x45 - [id number] Start: 06-08-2024 Dhaval Ti Prebent 5.5x35 - [id number] Start: 06-08-2024 Functional Status Date Assessment Result Facility 11-23-2021 Functional Status N/A General Arnett marcio Boss Clinical Notes 10-11-2020 to 10-20-2024 Note Date & Type Note Facility 10-20-2024 Evaluation note Diagnosis Onset Date Resolution Anxiety acute October 20, 2024 3:30pm Chronic pain syndrome acute October 20, 2024 3:30pm [facility] Work Phone: 1(224) 610-639503-04-2025 Evaluation note* Diagnosis Onset Date Resolution Status Admit Date Anxiety acute July 27 4:03pm Chronic pain syndrome acute Jul 2024 4:03pm [facility] Work Phone: 1(874) 302-637303-04-2025 Evaluation note* Diagnosis Onset Date Resolution Status Admit Date Anxiety acute July 27 4:03pm Chronic pain syndrome acute Jul 2024 4:03pm Anxiety acute October 20, 2024 3:30pm Chronic pain syndrome acute October 20, 2024 3:30pm [facility] Work Phone: 1(248) 914-243101-17-2025 History of Present illness Narrative* Genevieve Jones RN - 06/11/2024 4:11 PM EST Patient discharged to home with . Patient left with all belongings, AVS, prescriptions. Patient sent home with CHG soap for infection prevention. Patient left with hemovac drain and wound vac drain in place. All questions answered at this time. Patient has follow up appointments scheduled with PCP and Dr Holloway * Tawana Vidal MD - 06/11/2024 1:17 PM EST INTERNAL MEDICINE Progress Note 06/11/2024 1:17 PM Subjective: Admit Date: 06/08/2024 PCP: Maureen Mitchell MD Interval History: No new c/o no VIVEROS, no legs weakness Objective: Vitals: BP 137/83 Pulse (!) 105 Temp 98.3 F (36.8 C) (Oral) Resp 16 Ht 1.702 m (5' 7 ) Wt88.8 kg (195 lb 12.8 oz) SpO2 92% BMI 30.67 kg/m General appearance: alert and cooperative with exam HEENT: Head: atraumatic Neck: no adenopathy, no carotid bruit, and no JVD Lungs: clear to auscultation bilaterally Heart: S1, S2 normal Abdomen: soft, non-tender; bowel sounds normal; no masses, no organomegaly Extremities: extremities normal, atraumatic, no cyanosis or edema Neurologic: Mental status: Alert, oriented, thought content appropriate Back: dressing + drain in situ Medications: Scheduled Meds: metoprolol succinate 50 mg Oral Daily amitriptyline 75 mg Oral Nightly pregabalin 200 mg Oral TID RT sertraline 200 mg Oral Nightly sodium chloride flush 5-40 mL IntraVENous 2 times per day polyethylene glycol 17 g Oral Daily bisacodyl 5 mg Oral Daily sennosides-docusate sodium 1 tablet Oral BID Continuous Infusions: sodium chloride 125 mL/hr at 06/09/24 0005 sodium chloride Lab Results: CBC: Recent Labs 06/09/24 0709 06/10/24 0612 06/11/24 0725 HGB 9.8* 9.0* 9.1* BMP: Recent Labs 06/09/24 0709 06/10/24 0612 06/11/24 0725 NA 139 146* 139 K 4.3 3.3* 3.2* CL 103 107 100 CO2 20* 24 24 BUN <2* 4* 4* CREATININE 0.6 0.4 0.3* GLUCOSE 107 110* 109* Magnesium: Lab Results Component Value Date/Time MG 1.8 01/10/2024 04:13 AM Uric Acid: No components found for: URIC HgBA1c: No results found for: LABA1C TSH: Lab Results Component Value Date/Time TSH 6.81 12/31/2023 12:46 AM VITAMIN B12: No components found for: B12 FOLATE: Lab Results Component Value Date/Time FOLATE 5.4 12/31/2023 12:46 AM IRON: Lab Results Component Value Date/Time IRON 15 01/09/2024 05:35 AM FERRITIN: Lab Results Component Value Date/Time FERRITIN 80 01/09/2024 05:35 AM Assessment and Plan: L4-5 DDD with lumbar spinal stenosis. Status post L4-5 bilateral laminectomy and posterior spinal fusion. Hypertension Depression. Postop acute blood loss anemia. hypokalemia Replace K Cont metoprolol. Cont Antidepressants. Postoperative care PT/OT Tawana Vidal MD, MD * Donita Cutler, WE[employer] SERVICE FLOOR WORKER - 06/11/2024 9:08 AM EST [facility] INPATIENT PHYSICAL THERAPY DAILY NOTE [facility] 7K - 7K-18/018-A Discharge Recommendations: Continue to assess pending progress and Subacute/Prison Facility Equipment Recommendations: No Time In: 09 Time Out: 928 Timed Code Treatment Minutes: 24 Minutes Minutes: 24 Date: 06/11/2024 Patient Name: Candy Booth, Gender: female : 1970 (53 y.o.) Referring Practitioner: David Hardy PA Diagnosis: Lumbar stenosis with neurogenic claudication Additional Pertinent Hx: Per EMR, The patient is a 53-year-old female with complaints of constant low back pain with radiation of pain and pins/needles into the bilateral buttocks. She is status post L4-5 decompression [place] [address] Ronal Tiwari. Standing and walking aggravates her pain. She denies relieving factors. Modifying factors include medication management, chiropractic treatment, massage. Nonsmoker. Pt is s/p L4-L5 REVISION DECOMPRESSION WITH FUSION by Dr. Holloway. Prior Level of Function: Lives With: Spouse Type of Home: House Home Layout: One level Home Access: Stairs to enter without rails Entrance Stairs - Number of Steps: 2 SAUD Home Equipment: Rollator, Walker - Rolling (transport chair) Bathroom Shower/Tub: Tub/Shower unit Bathroom Toilet: Standard Bathroom Accessibility: Accessible Prior Level of Assist for ADLs: Needs assistance (Spouse assists with showering, dressing, and toileting.) Prior Level of Assist for Homemaking: Needs assistance (Spouse completes all cooking, cleaning, andlaundry.) Homemaking Responsibilities: No Prior Level of Assist for Transfers: Independent Active [employer] Feeder: No Additional Comments: Patient ambulated household distances with rollator walker with h/o mulitple falls. Prior Level of Assist for Ambulation: Independent household ambulator, with or without device (Patient's spouse would assist her d/t her fall risk but when home alone, patient walked (I)ly to/from bathroom. Patient laid in bed most of time d/t back pain and LE weakness.) Has the patient had two or more falls in the past year or any fall with injury in the past year?: Yes Restrictions/Precautions: Restrictions/Precautions: Fall Risk, General Precautions Required Braces or Orthoses Spinal: Lumbar Corset Position Activity Restriction Spinal Precautions: No Bending, No Lifting, No Twisting Other Position/Activity Restrictions: Monitor HR SUBJECTIVE: Pt in recliner upon arrival, RN approved session, requesting to get back to bed, pt declined step training due to pain. States she will be able to get into the house bc she has been doingit twice a week for apts. PAIN: 9/10: dheeraj horses L LE and buttocks and R groin down ant aspect of the LE Vitals: Vitals: 06/11/24 0355 BP: (!) 143/90 Pulse: 91 Resp: 16 Temp: 97.5 F (36.4 C) SpO2: 95% OBJECTIVE: Bed Mobility: Rolling to Left: Stand By Assistance, with head of bed flat, with rail, with increased time for completion Sit to Supine: Minimal Assistance, with head of bed flat, with increased time for completion Scooting: Stand By Assistance, with increased time for completion, dep to boost to HOB Transfers: Sit to Stand: Contact Guard Assistance, decreased force production Stand to Sit:Contact Guard Assistance, cues for hand placement, decreased eccentric control Ambulation: Minimal Assistance, with verbal cues , with increased time for completion Distance: 4ft Surface: Level Tile Device: Rolling Walker Gait Deviations: Forward Flexed Posture, Slow Kamila, Decreased Step Length Bilaterally, DecreasedGait Speed, Decreased Heel Strike Bilaterally, Decreased Foot Clearance Right, Decreased Foot Clearance Left, Unsteady Gait, and Increased reliance on assistive device Stairs: Not Tested, pt declined trial Balance: Not Tested Exercise: None pt declined Functional Outcome Measures: [facility] (6 CLICK) BASIC MOBILITY AM-[facility] Inpatient Mobility Raw Score : 14 AM-[facility] Inpatient T-Scale Score : 38.1 Modified Dowling: Current Functional Status: Not Applicable ASSESSMENT: Assessment: Pt demonstrates impairments with strength, balance, endurance, activity tolerance, independence and would benefit from continued skilled PT improve these impairments, to prevent falls andensure safety with mobility, pt will greatly benefit from continued skilled PT. Activity Tolerance: Patient tolerance of treatment:Fair. Pt reporting dheeraj horse on LLE which limited mobility Plan: Current Treatment Recommendations: Strengthening, Balance training, Functional mobility training, Transfer training, Gait training, Home exercise program, Therapeutic activities, Patient/Caregiver education & training, Neuromuscular re-education, Stair training, Endurance training, Pain management General Plan: (6x O) Education: Learners: Patient Patient Education: Plan of Care, Home Exercise Program, Precautions/Restrictions, Education Relatedto Diagnosis, Bed Mobility, Transfers, Gait, Home Safety Education, provided home safety/post op hand out and HEP Goals: Patient Goals : None stated Short Term Goals Time Frame for Short Term Goals: by discharge Short Term Goal 1: Patient to transfer sit<>supine with (I) with bed flat and without rail with log rolling technique. Short Term Goal 2: Patient to actively participate in (B) LE AROM in open chain position times 10 reps to increase strength required for safe mobility. Short Term Goal 3: Patient to sit edge of bed for duration of 15 minutes to increase core strength in preparation for transfers. Short Term Goal 4: Patient to transfer sit<>stand with SBA with walker. Short Term Goal 5: Patient to ambulate with appropriate AD times 20 feet with CGA. Detention Goals Time Frame for Dermatology Specialist Goals : n/a due to short length of stay Following session, patient left in safe position with all fall risk precautions in place. * Neli Smith OTA - 06/11/2024 8:46 AM EST [facility] ORTHOPEDICS Occupational Therapy Daily Note Discharge Recommendations: 24 hour assistance or supervision, Home with assist as needed, Home withassistance of aide, and Home with Home Health OT-Recommend SNF, Pt. declines Equipment Recommendations: No Time In: 0817 Time Out: 0846 Timed Code Treatment Minutes: 29 Minutes Minutes: 29 Date: 06/11/2024 Patient Name: Candy Booth, Gender: female Room: [address] [place] [address] : 1970 (53 y.o.) Referring Practitioner: David Hardy PA Diagnosis: Lumbar stenosis with neurogenic claudication Additional Pertinent Hx: Per EMR, The patient is a 53-year-old female with complaints of constant low back pain with radiation of pain and pins/needles into the bilateral buttocks. She is status post L4-5 decompression [place] [address] Ronal Tiwari. Standing and walking aggravates her pain. She denies relieving factors. Modifying factors include medication management, chiropractic treatment, massage. Nonsmoker. Pt is s/p L4-L5 REVISION DECOMPRESSION WITH FUSION by Dr. Holloway. Restrictions/Precautions: Restrictions/Precautions: Fall Risk, General Precautions Required Braces or Orthoses Spinal: Lumbar Corset Position Activity Restriction Spinal Precautions: No Bending, No Lifting, No Twisting Other Position/Activity Restrictions: Monitor HR Social/Functional History: Lives With: Spouse Type of Home: House Home Layout: One level Home Access: Stairs to enter without rails Entrance Stairs - Number of Steps: 2 SAUD Home Equipment: Rollator, Walker - Rolling (transport chair) Bathroom Shower/Tub: Tub/Shower unit Bathroom Toilet: Standard Bathroom Accessibility: Accessible Prior Level of Assist for ADLs: Needs assistance (Spouse assists with showering, dressing, and toileting.) Prior Level of Assist for Homemaking: Needs assistance (Spouse completes all cooking, cleaning, andlaundry.) Homemaking Responsibilities: No Prior Level of Assist for Transfers: Independent Prior Level of Assist for Ambulation: Independent household ambulator, with or without device (Patient's spouse would assist her d/t her fall risk but when home alone, patient walked (I)ly to/from bathroom. 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 SUBJECTIVE:TIFFANIE quinn OT session. Pt. In bed pleasant and agreeable to participate. PAIN: 5/10: low back Vitals: Vitals not assessed per clinical judgement, see nursing flowsheet COGNITION: Decreased Problem Solving and Decreased Safety Awareness ADL: Upper Extremity Dressing: Stand By Assistance. To don abdominal binder Pt. Declines corset reports too tight Lower Extremity Dressing: Minimal Assistance. To don shorts with instruction of LHR. Footwear Management: Maximum Assistance, with set-up, with verbal cues , and with increased time for completion. To don socks after instruction with sock aid . Bathing completed with staff earlier this AM. IADL: Not Tested BALANCE: Sitting Balance: Stand By Assistance. Seated on EOB Standing Balance: Contact Guard Assistance, with cues for safety. With support of RW stood less than 1 min at walker. BED MOBILITY: Supine to Sit: Stand By Assistance TRANSFERS: Sit to Stand: Contact Guard Assistance. Stand to Sit: Contact Guard Assistance. FUNCTIONAL MOBILITY: Assistive Device: Rolling Walker Assist Level: Contact Guard Assistance. Distance: from bed to chair Pt. Declined further mobility ADDITIONAL ACTIVITIES: Discussed recommendations Pt. Continues to decline states spouse will assist with all needs at home. Educated Pt. On recommendations for home. Pt. Reports no further DME/AE needs, Precautions reviewed. Modified Dowling: Current Functional Status: Not Applicable ASSESSMENT: Activity Tolerance: Patient tolerance of treatment: Fair treatment tolerance Plan: Times Per Week: 6x Times Per Day: Once a day Current Treatment Recommendations: ROM, Balance training, Functional mobility training, Endurance training, Neuromuscular re-education, Self-Care / ADL, Home management training, Safety education & training, Patient/Caregiver education & training, Equipment evaluation, education, & procurement, Pain management Education: Learners: Patient ADL's, Precautions, Equipment Education, Fall Prevention, and Assistive Device Safety Goals Short Term Goals Time Frame for Short Term Goals: Until discharge Short Term Goal 1: Pt will complete dynamic standing task x 5 minutes with 0 vcs for safety and Zayra to increase indep and endurance with all sinkside grooming. Short Term Goal 2: Pt will complete functional mobility to/from BR and HH distances with min A to increase indep with all toileting. Short Term Goal 3: Pt will complete LB dressing with Min Assist to increase indep within home environment. Short Term Goal 4: Pt will complete showering/bathing task with min Assist to increase indep withinhome environment. Additional Goals?: No Detention Goals Time Frame for Detention Goals : No LTGs d/t short estimated length of stay. Following session, patient left in safe position with all fall risk precautions in place. * David Hardy PA - 06/11/2024 7:03 AM EST Department of Orthopedic Surgery Spine Service Attending Progress Note Subjective: POD#3 patient doing well this morning. She is regaining sensation in the legs and pain is improved. +BM Voiding on own. Vitals VITALS: BP (!) 143/90 Pulse 91 Temp 97.5 F (36.4 C) (Oral) Resp 16 Ht 1.702 m (5' 7 ) Wt 88.8 kg (195 lb 12.8 oz) SpO2 95% BMI 30.67 kg/m 24HR INTAKE/OUTPUT: Intake/Output Summary (Last 24 hours) at 06/11/2024 0703 Last data filed at 06/11/2024 0200 Gross per 24 hour Intake 480 ml Output 800 ml Net -320 ml URINARY CATHETER OUTPUT (Elaine): DRAIN/TUBE OUTPUT: Closed/Suction Drain Inferior;Midline Back-Output (ml): 60 ml PHYSICAL EXAM: Orientation: alert and oriented to person, place and time Incision: dressing in place, clean, dry, intact Lower Extremity Motor : dorsiflexion, plantarflexion 4/5 right, 3/5 left Lower Extremity Sensory: Abnormal LABS: HgB: Lab Results Component Value Date/Time HGB 9.0 06/10/2024 06:12 AM Hemoglobin/Hematocrit: Lab Results Component Value Date/Time HGB 9.0 06/10/2024 06:12 AM HCT 28.0 06/10/2024 06:12 AM BMP: Lab Results Component Value Date/Time NA 146 06/10/2024 06:12 AM K 3.3 06/10/2024 06:12 AM CL 107 06/10/2024 06:12 AM CO2 24 06/10/2024 06:12 AM BUN 4 06/10/2024 06:12 AM CREATININE 0.4 06/10/2024 06:12 AM CALCIUM 8.7 06/10/2024 06:12 AM GFRAA >60.0 02/06/2018 08:29 AM LABGLOM > 90 06/10/2024 06:12 AM GLUCOSE 110 06/10/2024 06:12 AM ASSESSMENT AND PLAN: Post operative day 3 status post L4-5 decompression and fusion 1: Monitor labs and drain output 2: Activity Level: As tolerated. PT/OT, back brace when ambulating - new back brace order placed 3: Pain Control: Good 4: Discharge Planning: Home today - for drain care and PT/OT added to order 5: Acute on chronic blood loss anemia, hgb 9.0 yesterday. AM labs pending 6: Potassium 3.3 yesterday, replacement protocol. AM labs pending YOON Plata * Tawana Vidal MD - 06/10/2024 3:35 PM EST INTERNAL MEDICINE Progress Note 06/10/2024 3:35 PM Subjective: Admit Date: 06/08/2024 PCP: Maureen Mitchell MD Interval History: Feels better today, no VIVEROS, no legs weakness Objective: Vitals: BP 113/72 Pulse 99 Temp 98.4 F (36.9 C) (Oral) Resp 16 Ht 1.702 m (5' 7 ) Wt 88.8kg (195 lb 12.8 oz) SpO2 97% BMI 30.67 kg/m General appearance: alert and cooperative with exam HEENT: Head: atraumatic Neck: no adenopathy, no carotid bruit, and no JVD Lungs: clear to auscultation bilaterally Heart: S1, S2 normal Abdomen: soft, non-tender; bowel sounds normal; no masses, no organomegaly Extremities: extremities normal, atraumatic, no cyanosis or edema Neurologic: Mental status: Alert, oriented, thought content appropriate Back: dressing + drain in situ Medications: Scheduled Meds: metoprolol succinate 50 mg Oral Daily amitriptyline 75 mg Oral Nightly pregabalin 200 mg Oral TID RT sertraline 200 mg Oral Nightly sodium chloride flush 5-40 mL IntraVENous 2 times per day polyethylene glycol 17 g Oral Daily bisacodyl 5 mg Oral Daily sennosides-docusate sodium 1 tablet Oral BID Continuous Infusions: sodium chloride 125 mL/hr at 06/09/24 0005 sodium chloride Lab Results: CBC: Recent Labs 06/09/24 0709 06/10/24 0612 HGB 9.8* 9.0* BMP: Recent Labs 06/09/24 0709 06/10/24 0612 NA 139 146* K 4.3 3.3* CL 103 107 CO2 20* 24 BUN <2* 4* CREATININE 0.6 0.4 GLUCOSE 107 110* Magnesium: Lab Results Component Value Date/Time MG 1.8 01/10/2024 04:13 AM Uric Acid: No components found for: URIC HgBA1c: No results found for: LABA1C TSH: Lab Results Component Value Date/Time TSH 6.81 12/31/2023 12:46 AM VITAMIN B12: No components found for: B12 FOLATE: Lab Results Component Value Date/Time FOLATE 5.4 12/31/2023 12:46 AM IRON: Lab Results Component Value Date/Time IRON 15 01/09/2024 05:35 AM FERRITIN: Lab Results Component Value Date/Time FERRITIN 80 01/09/2024 05:35 AM Assessment and Plan: L4-5 DDD with lumbar spinal stenosis. Status post L4-5 bilateral laminectomy and posterior spinal fusion. Hypertension Depression. Postop acute blood loss anemia. hypokalemia Replace K Cont metoprolol. Cont Antidepressants. Postoperative care PT/OT Tawana Vidal MD, MD * Kat Castillo, PT - 06/10/2024 2:09 PM EST [facility] INPATIENT PHYSICAL THERAPY DAILY NOTE [facility] 7K - 7K-18/018-A Discharge Recommendations: Subacute/Prison Facility Equipment Recommendations: No Time In: 30 Time Out: 1010 Timed Code Treatment Minutes: 40 Minutes Minutes: 40 Date: 06/10/2024 Patient Name: Candy Booth, Gender: female : 1970 (53 y.o.) Referring Practitioner: David Hardy PA Diagnosis: Lumbar stenosis with neurogenic claudication Additional Pertinent Hx: Per EMR, The patient is a 53-year-old female with complaints of constant low back pain with radiation of pain and pins/needles into the bilateral buttocks. She is status post L4-5 decompression [place] [address] Ronal Tiwari. Standing and walking aggravates her pain. She denies relieving factors. Modifying factors include medication management, chiropractic treatment, massage. Nonsmoker. Pt is s/p L4-L5 REVISION DECOMPRESSION WITH FUSION by Dr. Holloway. Prior Level of Function: Lives With: Spouse Type of Home: House Home Layout: One level Home Access: Stairs to enter without rails Entrance Stairs - Number of Steps: 2 SAUD Home Equipment: Rollator, Walker - Rolling (transport chair) Bathroom Shower/Tub: Tub/Shower unit Bathroom Toilet: Standard Bathroom Accessibility: Accessible Prior Level of Assist for ADLs: Needs assistance (Spouse assists with showering, dressing, and toileting.) Prior Level of Assist for Homemaking: Needs assistance (Spouse completes all cooking, cleaning, andlaundry.) Homemaking Responsibilities: No Prior Level of Assist for Transfers: Independent Active [employer] Feeder: No Additional Comments: Patient ambulated household distances with rollator walker with h/o mulitple falls. Prior Level of Assist for Ambulation: Independent household ambulator, with or without device (Patient's spouse would assist her d/t her fall risk but when home alone, patient walked (I)ly to/from bathroom. Patient laid in bed most of time d/t back pain and LE weakness.) Has the patient had two or more falls in the past year or any fall with injury in the past year?: Yes Restrictions/Precautions: Restrictions/Precautions: Fall Risk, General Precautions Required Braces or Orthoses Spinal: Lumbar Corset Position Activity Restriction Spinal Precautions: No Bending, No Lifting, No Twisting Other Position/Activity Restrictions: Monitor HR SUBJECTIVE: Patient lying in bed upon arrival. PT questioned pain med schedule. Patient has not received as of yet. PT communicated with RN and planned treatment following administering pain meds. RNapproved visit. Patient pleasant and agreeable. Patient was able to stand with walker and ambulate to bedside chair with assistance. PT updated goals. Patient has lumbar corset but feels it is too tight stating her stomach is bloated and refused to wear stating it makes her nauseated. PT encouragedat minimal donning of abdominal binder with transfers. Patient agreed. PAIN: 12/02: low back pain Vitals: Heart Rate: 105 bpm at rest; 115 bpm with activity OBJECTIVE: Bed Mobility: Supine to Sit: Moderate Assistance, with increased time for completion Transfers: Sit to Stand: Minimal Assistance Stand to Sit:Minimal Assistance, cues for hand placement, cues for alignment to surface and for safety with assistive device Ambulation: Minimal Assistance Distance: 2 feet Surface: Level Tile Device: Rolling Walker Gait Deviations: Forward Flexed Posture, Slow Kamila, Decreased Step Length Bilaterally, and Unsteady Gait Stairs: Not Tested Balance: Static Sitting Balance: Contact Guard Assistance Static Standing Balance: Minimal Assistance, with wide NOÉ, heavy reliance on walker with UE, and flexed hips/knees Exercise: Patient was guided in 1 set(s) 10 reps of exercises to both lower extremities: Glut sets, Seated marches, Seated hamstring curls, Seated heel/toe raises, Long arc quads, Seated abduction/adduction. Exercises were completed for increased independence with functional mobility. Functional Outcome Measures: [facility] (6 CLICK) BASIC MOBILITY AM-[facility] Inpatient Mobility Raw Score : 14 AM-[facility] Inpatient T-Scale Score : 38.1 Modified Dominick: Current Functional Status: Not Applicable ASSESSMENT: Assessment: Patient progressing toward established goals. Activity Tolerance: Patient tolerance of treatment:Good. Plan: Current Treatment Recommendations: Strengthening, Balance training, Functional mobility training, Transfer training, Gait training, Home exercise program, Therapeutic activities, Patient/Caregiver education & training, Neuromuscular re-education, Stair training, Endurance training, Pain management General Plan: (6x O) Education: Learners: Patient Patient Education: Precautions/Restrictions Goals: Patient Goals : None stated Short Term Goals Time Frame for Short Term Goals: by discharge Short Term Goal 1: Patient to transfer sit<>supine with (I) with bed flat and without rail with log rolling technique. Short Term Goal 2: Patient to actively participate in (B) LE AROM in open chain position times 10 reps to increase strength required for safe mobility. Short Term Goal 3: Patient to sit edge of bed for duration of 15 minutes to increase core strength in preparation for transfers. Short Term Goal 4: Patient to transfer sit<>stand with SBA with walker. Short Term Goal 5: Patient to ambulate with appropriate AD times 20 feet with CGA. Dermatology Specialist Goals Time Frame for Detention Goals : n/a due to short length of stay Following session, patient left in safe position with all fall risk precautions in place. * Neli Smith OTA - 06/10/2024 11:56 AM EST [facility] ORTHOPEDICS 7K Occupational Therapy Daily Note Discharge Recommendations: Continue to assess pending progress and Subacute/alf facility Pt. Declining would recommend 24 hour care and Home Health with OT if returning home. Equipment Recommendations: No Time In: 1129 Time Out: 1156 Timed Code Treatment Minutes: 27 Minutes Minutes: 27 Date: 06/10/2024 Patient Name: Candy Booth, Gender: female Room: [facility]18/018-A : 1970 (53 y.o.) Referring Practitioner: David Hardy PA Diagnosis: Lumbar stenosis with neurogenic claudication Additional Pertinent Hx: Per EMR, The patient is a 53-year-old female with complaints of constant low back pain with radiation of pain and pins/needles into the bilateral buttocks. She is status post L4-5 decompression [place] [address] Ronal Tiwari. Standing and walking aggravates her pain. She denies relieving factors. Modifying factors include medication management, chiropractic treatment, massage. Nonsmoker. Pt is s/p L4-L5 REVISION DECOMPRESSION WITH FUSION by Dr. Holloway. Restrictions/Precautions: Restrictions/Precautions: Fall Risk, General Precautions Required Braces or Orthoses Spinal: Lumbar Corset Position Activity Restriction Spinal Precautions: No Bending, No Lifting, No Twisting Other Position/Activity Restrictions: Monitor HR Social/Functional History: Lives With: Spouse Type of Home: House Home Layout: One level Home Access: Stairs to enter without rails Entrance Stairs - Number of Steps: 2 SAUD Home Equipment: Rollator, Walker - Rolling (transport chair) Bathroom Shower/Tub: Tub/Shower unit Bathroom Toilet: Standard Bathroom Accessibility: Accessible Prior Level of Assist for ADLs: Needs assistance (Spouse assists with showering, dressing, and toileting.) Prior Level of Assist for Homemaking: Needs assistance (Spouse completes all cooking, cleaning, andlaundry.) Homemaking Responsibilities: No Prior Level of Assist for Transfers: Independent Prior Level of Assist for Ambulation: Independent household ambulator, with or without device (Patient's spouse would assist her d/t her fall risk but when home alone, patient walked (I)ly to/from bathroom. 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 SUBJECTIVE: RN okayed OT session. Pt. In room and agreeable to participate with some encouragement.Pt. Reports fatigue and requesting to return to the chair. PAIN: 8/10: low back Vitals: Vitals not assessed per clinical judgement, see nursing flowsheet COGNITION: Decreased Problem Solving and Decreased Safety Awareness ADL: Upper Extremity Dressing: Maximum Assistance. To don abdominal binder refused corset states too tight Toileting: Maximum Assistance. With clothing management Toilet Transfer: Contact Guard Assistance, Minimal Assistance, X 1, with set-up, with verbal cues ,and with increased time for completion. to [facility] [place] . IADL: Not Tested BALANCE: Sitting Balance: Stand By Assistance. Standing Balance: Contact Guard Assistance. With vcs for safety BED MOBILITY: Not Tested TRANSFERS: Sit to Stand: Minimal Assistance, X 1. Stand to Sit: Contact Guard Assistance, Minimal Assistance. FUNCTIONAL MOBILITY: Assistive Device: Rolling Walker Assist Level: Contact Guard Assistance and Minimal Assistance. Distance: 1 foot to C ADDITIONAL ACTIVITIES: Pt. Provided education on LHAE use and precautions. Pt. Unable to trial this date. Would benefit from further review. Functional Outcome Measures: AM-PAC Inpatient Daily Activity Raw Score: 16 Modified Dowling: Current Functional Status: Not Applicable ASSESSMENT: Activity Tolerance: Patient tolerance of treatment: Fair treatment tolerance Plan: Times Per Week: 6x Times Per Day: Once a day Current Treatment Recommendations: ROM, Balance training, Functional mobility training, Endurance training, Neuromuscular re-education, Self-Care / ADL, Home management training, Safety education & training, Patient/Caregiver education & training, Equipment evaluation, education, & procurement, Pain management Education: Learners: Patient ADL's, Precautions, Equipment Education, Fall Prevention, and Assistive Device Safety Goals Short Term Goals Time Frame for Short Term Goals: Until discharge Short Term Goal 1: Pt will complete dynamic standing task x 5 minutes with 0 vcs for safety and Zayra to increase indep and endurance with all sinkside grooming. Short Term Goal 2: Pt will complete functional mobility to/from BR and HH distances with min A to increase indep with all toileting. Short Term Goal 3: Pt will complete LB dressing with Min Assist to increase indep within home environment. Short Term Goal 4: Pt will complete showering/bathing task with min Assist to increase indep withinhome environment. Additional Goals?: No Detention Goals Time Frame for Dermatology Specialist Goals : No LTGs d/t short estimated length of stay. Following session, patient left in safe position with all fall risk precautions in place. * Genevieve Jones RN - 06/10/2024 10:30 AM EST Phone call made to [employer] rep as pt wound vac not working * David Hardy PA - 06/10/2024 6:57 AM EST Department of Orthopedic Surgery Spine Service Attending Progress Note Subjective: POD#2 patient doing well, N/T resolving in legs. Leg pain improved No BM, passing gas Straight cath x 1 this, has not voided on own yet. Got up to bedside commode last night Denies n/v this am Vitals VITALS: BP (!) 157/95 Pulse (!) 104 Temp 97.9 F (36.6 C) (Oral) Resp 18 Ht 1.702 m (5' 7 ) Wt 88.8 kg (195 lb 12.8 oz) SpO2 94% BMI 30.67 kg/m 24HR INTAKE/OUTPUT: Intake/Output Summary (Last 24 hours) at 06/10/2024 0657 Last data filed at 06/10/2024 0418 Gross per 24 hour Intake 535 ml Output 1955 ml Net -1420 ml URINARY CATHETER OUTPUT (Elaine): DRAIN/TUBE OUTPUT: Closed/Suction Drain Inferior;Midline Back-Output (ml): 30 ml PHYSICAL EXAM: Orientation: alert and oriented to person, place and time Incision: dressing in place, clean, dry, intact Lower Extremity Motor : dorsiflexion, plantarflexion 4/5 right, 3/5 left Lower Extremity Sensory: Abnormal LABS: HgB: Lab Results Component Value Date/Time HGB 9.8 06/09/2024 07:09 AM Hemoglobin/Hematocrit: Lab Results Component Value Date/Time HGB 9.8 06/09/2024 07:09 AM HCT 31.1 06/09/2024 07:09 AM BMP: Lab Results Component Value Date/Time NA 139 06/09/2024 07:09 AM K 4.3 06/09/2024 07:09 AM CL 103 06/09/2024 07:09 AM CO2 20 06/09/2024 07:09 AM BUN <2 06/09/2024 07:09 AM CREATININE 0.6 06/09/2024 07:09 AM CALCIUM 8.4 06/09/2024 07:09 AM GFRAA >60.0 02/06/2018 08:29 AM LABGLOM > 90 06/09/2024 07:09 AM GLUCOSE 107 06/09/2024 07:09 AM ASSESSMENT AND PLAN: Post operative day 2 status post L4-5 decompression and fusion 1: Monitor labs and drain output 2: Activity Level: As tolerated. PT/OT, back brace when ambulating 3: Pain Control: Good 4: Discharge Planning: Pending BM 5: Bladder scan, straight cath prn 6: Acute on chronic blood loss anemia, hgb 9.0. AM labs YOON [place] * Kat Castillo, PT - 06/09/2024 3:54 PM EST [facility] INPATIENT PHYSICAL THERAPY EVALUATION [facility] ORTHOPEDICS 7K - 7K-18/018-A Discharge Recommendations: Subacute/Prison Facility Equipment Recommendations: No Time In: 1500 Time Out: 1543 Timed Code Treatment Minutes: 30 Minutes Minutes: 43 Date: 06/09/2024 Patient Name: Candy Booth, Gender: female : 1970 (53 y.o.) Referring Practitioner: David Hardy PA Diagnosis: Lumbar stenosis with neurogenic claudication Additional Pertinent Hx: Per EMR, The patient is a 53-year-old female with complaints of constant low back pain with radiation of pain and pins/needles into the bilateral buttocks. She is status post L4-5 decompression [place] [address] Ronal Tiwari. Standing and walking aggravates her pain. She denies relieving factors. Modifying factors include medication management, chiropractic treatment, massage. Nonsmoker. Pt is s/p L4-L5 REVISION DECOMPRESSION WITH FUSION by Dr. Holloway. Restrictions/Precautions: Restrictions/Precautions: Fall Risk, General Precautions Spinal Precautions: No Bending, No Lifting, No Twisting Other Position/Activity Restrictions: Monitor HR Required Braces or Orthoses?: Yes Spinal: Lumbar Corset Subjective: Chart Reviewed: Yes Patient assessed for rehabilitation services?: Yes Subjective: Nurse approved visit. Patient's HR 120 bpm resting. Nurse and patient stated it runs high. Patient lying in bed and spouse present in room. PT attempted to citlaly brace while patient sitting edge of bed and patient c/o being nauseated and unable to tolerate it. The longer patient sat up, the more nauseated she became and HR elevated to 139 bpm. Patient requested to lie back down and based on her request and symptoms, PT accomodated. Patient left in supine with call light in reach and bed alarm on. General: Orientation Level: Oriented X4 Vision: Impaired Vision Exceptions: Wears glasses for reading Pain: 8-9/10: low back pain with radiculopathy posterior thighs ending knee level Vitals: Heart Rate: 120 bpm resting elevating to 139 bpm with sitting edge of bed Social/Functional History: Lives With: Spouse Type of Home: House Home Layout: One level Home Access: Stairs to enter without rails Entrance Stairs - Number of Steps: 2 SAUD Home Equipment: Rollator, Walker - Rolling (transport chair) Bathroom Shower/Tub: Tub/Shower unit Bathroom Toilet: Standard Bathroom Accessibility: Accessible Prior Level of Assist for ADLs: Needs assistance (Spouse assists with showering, dressing, and toileting.) Prior Level of Assist for Homemaking: Needs assistance (Spouse completes all cooking, cleaning, andlaundry.) Homemaking Responsibilities: No Prior Level of Assist for Transfers: Independent Prior Level of Assist for Ambulation: Independent household ambulator, with or without device (Patient's spouse would assist her d/t her fall risk but when home alone, patient walked (I)ly to/from bathroom. Patient laid in bed most of time d/t back pain and LE weakness.) Has the patient had two or more falls in the past year or any fall with injury in the past year?: Yes Active [employer] Feeder: No Additional Comments: Patient ambulated household distances with rollator walker with h/o mulitple falls. OBJECTIVE: Range of Motion: Bilateral Lower Extremity: WFL Strength: Bilateral Lower Extremity: AAROM required for supine completion of ROM; 2/5 Balance: Static Sitting Balance: Stand By Assistance --Patient sat edge of bed with attempts to don lumbar corset. Patient unable to tolerate wear becoming nauseated. Removed and trialed a second time with slightly improved tolerance but after 2 minutes requested for it to be removed. HR elevated to 139 bpm. Bed Mobility: Supine to Sit: Moderate Assistance, with head of bed flat, with rail, with increased time for completion Sit to Supine: Moderate Assistance, with head of bed flat, with increased time for completion Transfers: Not Tested Ambulation: Not Tested Stairs: Not Tested Exercise: None Functional Outcome Measures: [facility] (6 CLICK) BASIC MOBILITY AM-[facility] Inpatient Mobility Raw Score : 8 AM-[facility] Inpatient T-Scale Score : 28.52 Modified Dowling: Premorbid Functional Status: Not Applicable Current Functional Status: Not Applicable ASSESSMENT: Activity Tolerance: Patient tolerance of treatment:Fair. Treatment Initiated: Treatment and education initiated within context of evaluation. Evaluation time included review of current medical information, gathering information related to past medical, social and functional history, completion of standardized testing, formal and informal observation of tasks, assessment of data and development of plan of care and goals. Treatment time included skilled education and facilitation of tasks to increase safety and independence with functional mobility forimproved independence and quality of life. Assessment: Body Structures, Functions, Activity Limitations Requiring Skilled Therapeutic Intervention: Decreased functional mobility , Decreased strength, Decreased safe awareness, Decreased endurance, Decreased balance, Decreased posture, Increased pain Assessment: Candy Booth is a 53 y.o. female that presents with severe weakness of (B) LE with extensive assistance required for bed mobility tasks and minimal tolerance to upright positioning due to reports of pain, nausea, and elevated HR. Pt demonstrates a decrease in baseline by way of bed mobility, transfers and ambulation secondary to decreased activity tolerance, strength, fatigue, and balance deficits. Pt will benefit from skilled PT services throughout admission and beyond hospital discharge for improvements in functional mobility and in order to decrease fall risk and return pt to [facility]. Requires PT Follow-Up: Yes Patient Education: . Patient Education Education Provided: Mobility Training Education Method: Demonstration, Verbal Barriers to Learning: None Education Outcome: Verbalized understanding Plan: Current Treatment Recommendations: Strengthening, Balance training, Functional mobility training, Transfer training, Gait training, Home exercise program, Therapeutic activities, Patient/Caregiver education & training, Neuromuscular re-education, Stair training, Endurance training, Pain management General Plan: (6x O) Goals: Patient Goals : None stated Short Term Goals Time Frame for Short Term Goals: by discharge Short Term Goal 1: Patient to transfer sit<>supine with (I) with bed flat and without rail with log rolling technique. Short Term Goal 2: Patient to actively participate in (B) LE AROM in open chain position times 10 reps to increase strength required for safe mobility. Short Term Goal 3: Patient to sit edge of bed for duration of 15 minutes to increase core strength in preparation for transfers. Short Term Goal 4: Transfers and gait to be assessed when appropriate. Dermatology Specialist Goals Time Frame for Dermatology Specialist Goals : n/a due to short length of stay Following session, patient left in safe position with all fall risk precautions in place. * Ariana Bravo OT - 06/09/2024 1:47 PM EST [facility] INPATIENT OCCUPATIONAL THERAPY [facility] ORTHOPEDICS 7K EVALUATION Discharge Recommendations: Continue to assess pending progress, Subacute/Prison Facility Equipment Recommendations: No Time In: 1041 Time Out: 1119 Timed Code Treatment Minutes: 30 Minutes Minutes: 38 Date: 06/09/2024 Patient Name: Candy Booth, Gender: female : 1970 (53 y.o.) Referring Practitioner: David Hardy PA Diagnosis: Lumbar stenosis with neurogenic claudication Additional Pertinent Hx: Per EMR, The patient is a 53-year-old female with complaints of constant low back pain with radiation of pain and pins/needles into the bilateral buttocks. She is status post L4-5 decompression [place] [address] Ronal Tiwari. Standing and walking aggravates her pain. She denies relieving factors. Modifying factors include medication management, chiropractic treatment, massage. Nonsmoker. Pt is s/p L4-L5 REVISION DECOMPRESSION WITH FUSION by Dr. Holloway. Restrictions/Precautions: Restrictions/Precautions: Fall Risk, General Precautions Required Braces or Orthoses Spinal: Lumbar Corset Position Activity Restriction Spinal Precautions: No Bending, No Lifting, No Twisting Other Position/Activity Restrictions: Monitor HR Subjective Chart Reviewed: Yes, Orders, Progress Notes, History and Physical, Operative Notes Patient assessed for rehabilitation services?: Yes Subjective: RN okayed OT session. Upon arrival patient was resting in bed. Pt was agreeable to OT session. Pain: 03/04: Back Vitals: Vitals not assessed per clinical judgement, see nursing flowsheet Social/Functional History: Lives With: Spouse Type of Home: House Home Layout: One level Home Access: Stairs to enter without rails Entrance Stairs - Number of Steps: 2 SAUD Bathroom Shower/Tub: Tub/Shower unit Bathroom Toilet: Standard Bathroom Accessibility: Accessible Prior Level of Assist for ADLs: Needs assistance (Spouse assists with showering, dressing, and toileting.) Prior Level of Assist for Homemaking: Needs assistance (Spouse completes all cooking, cleaning, andlaundry.) Homemaking Responsibilities: No Prior Level of Assist for Transfers: Independent Prior Level of Assist for Ambulation: Independent in home with wheelchair and able to pivot transfer Active [employer] Feeder: No 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 STRENGTH: Bilateral Upper Extremity: Not Tested SENSATION: Reports tingling in B LEs. ADL: Footwear Management: Dependent. . IADL: Not Tested BALANCE: Sitting Balance: Contact Guard Assistance. Sitting EOB. Standing Balance: Minimal Assistance, X 1, with cues for safety, with verbal cues . BED MOBILITY: Supine to Sit: Minimal Assistance, X 1, with head of bed raised, with rail, with increased time forcompletion Sit to Supine: Moderate Assistance, X 1, with head of bed flat, with rail, with increased time for completion Scooting: Minimal Assistance, X 1 TRANSFERS: Sit to Stand: Moderate Assistance, X 1, with increased time for completion, cues for hand placement. From EOB. Stand to Sit: Moderate Assistance, X 1. FUNCTIONAL MOBILITY: Assistive Device: Walker Assist Level: Moderate Assistance, X 1, and with verbal cues . Distance: 1 step Pt completed 1 step then reporting she is going to faint and has ringing in ears. [employer] sat pt on EOB and RN notified. Vitals showing tachycardia with HR 148. Activity Tolerance: Patient tolerance of treatment: Good treatment tolerance Functional Outcome Measures: AM-PAC Inpatient Daily Activity Raw Score: 16 Modified Dowling: Premorbid Functional Status: Not Applicable Current Functional Status: Not Applicable Assessment: This 53 year old female presents with s/p lumbar sx. Pt demonstrates weakness, decreased balance, decrease safety awareness, decreased endurance. Pt requires skilled OT intervention to increase indepand safety with all self cares, transfers, mobility, and IADLs to return to PLOF. Without skilled OT intervention patient is at increased risk for falls, caregiver burden, and hospital readmission after discharge. Pt would benefit from SNF at discharge. Performance deficits / Impairments: Decreased functional mobility , Decreased endurance, Decreased ADL status, Decreased strength, Decreased safe awareness, Decreased high-level IADLs, Decreased balance Prognosis: Fair REQUIRES OT FOLLOW-UP: Yes Decision Making: Medium Complexity Treatment Initiated: Treatment and education initiated within context of evaluation. Evaluation time included review of current medical information, gathering information related to past medical, social and functional history, completion of standardized testing, formal and informal observation of tasks, assessment of data and development of plan of care and goals. Treatment time included skilled education and facilitation of tasks to increase safety and independence with ADL's for improved functional independence and quality of life. Patient Education: Patient Education Education Given To: Patient Education Provided: Role of Therapy;Plan of Care;Precautions;ADL Adaptive Strategies;Transfer Training Education Method: Demonstration;Verbal Barriers to Learning: None Education Outcome: Continued education needed Plan: Times Per Week: 6x Times Per Day: Once a day Current Treatment Recommendations: ROM, Balance training, Functional mobility training, Endurance training, Neuromuscular re-education, Self-Care / ADL, Home management training, Safety education & training, Patient/Caregiver education & training, Equipment evaluation, education, & procurement, Pain management. See long-term goal time frame for expected duration of plan of care. If nolong-term goals established, a short length of stay is anticipated. Goals: Patient goals : Decrease pain and go home Short Term Goals Time Frame for Short Term Goals: Until discharge Short Term Goal 1: Pt will complete dynamic standing task x 5 minutes with 0 vcs for safety and Zayra to increase indep and endurance with all sinkside grooming. Short Term Goal 2: Pt will complete functional mobility to/from BR and HH distances with min A to increase indep with all toileting. Short Term Goal 3: Pt will complete LB dressing with Min Assist to increase indep within home environment. Short Term Goal 4: Pt will complete showering/bathing task with min Assist to increase indep withinhome environment. Additional Goals?: No Detention Goals Time Frame for Detention Goals : No LTGs d/t short estimated length of stay. AM-PAC Inpatient Daily Activity Raw Score: 16 AM-PAC Inpatient ADL T-Scale Score : 35.96 Following session, patient left in safe position with all fall risk precautions in place. * David Hardy PA - 06/09/2024 7:16 AM EST Department of Orthopedic Surgery Spine Service Attending Progress Note Subjective: POD#1 patient doing well this am, able to stand and transfer (she was nonambulatory preop). No change in preoperative numbness but denies leg pain. No issues with voiding. No BM. Denies n/v. Hgb 9.8 (preop 8.7.) Vitals VITALS: BP 129/81 Pulse 99 Temp 98.4 F (36.9 C) (Oral) Resp 17 Ht 1.702 m (5' 7 ) Wt 88.8kg (195 lb 12.8 oz) SpO2 98% BMI 30.67 kg/m 24HR INTAKE/OUTPUT: Intake/Output Summary (Last 24 hours) at 06/09/2024 0717 Last data filed at 06/09/2024 0340 Gross per 24 hour Intake 1749.43 ml Output 1500 ml Net 249.43 ml URINARY CATHETER OUTPUT (Elaine): DRAIN/TUBE OUTPUT: Closed/Suction Drain Inferior;Midline Back-Output (ml): 175 ml PHYSICAL EXAM: Orientation: alert and oriented to person, place and time Incision: dressing in place, clean, dry, intact Lower Extremity Motor : dorsiflexion, plantarflexion 4/5 right, 3/5 left Lower Extremity Sensory: Abnormal LABS: HgB: Lab Results Component Value Date/Time HGB 8.7 01/11/2024 07:54 AM Hemoglobin/Hematocrit: Lab Results Component Value Date/Time HGB 9.8 06/09/2024 07:09 AM HCT 31.1 06/09/2024 07:09 AM BMP: Lab Results Component Value Date/Time NA 139 06/09/2024 07:09 AM K 4.3 06/09/2024 07:09 AM CL 103 06/09/2024 07:09 AM CO2 20 06/09/2024 07:09 AM BUN <2 06/09/2024 07:09 AM CREATININE 0.6 06/09/2024 07:09 AM CALCIUM 8.4 06/09/2024 07:09 AM GFRAA >60.0 02/06/2018 08:29 AM LABGLOM > 90 06/09/2024 07:09 AM GLUCOSE 107 06/09/2024 07:09 AM ASSESSMENT AND PLAN: Post operative day 1 status post L4-5 decompression and fusion 1: Monitor labs and drain output 2: Activity Level: As tolerated. PT/OT, back brace when ambulating 3: Pain Control: Good 4: Discharge Planning: Pending - possible discharge home tomorrow, for drain care YOON Plata * Alyssa Lantigua RN - 06/08/2024 7:14 PM EST Pt admitted to [facility] via bed from PACU . Complaints: Lumbar stenosis with neurogenic claudication. IV normal saline infusing into the hand right, condition patent and no redness at a rate of 125 mls/ hour with about 300 mls in the bag still. IV site free of s/s of infection or infiltration. Vital signs obtained. Assessment and data collection initiated. Two nurse skin assessment performed by Alyssa MORENO and Eliot RN. Oriented to room. Policies and procedures for 5K explained. All questions answered with no further questions at this time. Fall prevention and safety brochure discussed with patient. Bed alarm on. Call light in reach.Oriented to room. Alyssa Lantigua RN, RN 06/09/2024 12:48 AM Explained patients right to have family, key account representative or physician notified of their admission. Patient has Declined for physician to be notified. Patient has Declined for family/key account representative to be notified. * Thi Jones RN - 06/08/2024 5:30 PM EST 1740 Pt arrives to pacu with oral airway. Pt following commands, minimally responsive to stimuli. Respirations easy and unlabored. 1742 Pt coughing, oral airway removed. Pt placed on 2L NC. 1745 Pt waking up more, grimacing and yelling in pain. Rating pain a 9/10. Medicated per order. 1753 Pt continues to complain of pain. Medicated per order. 1758 Pt continues to complain of 10/10 pain. Educated pt on tolerable pain goals, as well as the gradual onset of pain control post surgery. Pt is being medicated per orders. 1813 Pt continues to complain of severe pain and has exhausted 2mg Dilaudid maximum in PACU. Pt states Fentanyl does not help. Dr Villareal notified. Verbal order given by Dr Villareal for 2mg Versed. 181 2mg Versed given. 1822 Pt appears to be resting comfortably. VSS. 1830 Dr Villareal at bedside to administer 25mg Ketamine. VSS. 1835 Pt continues to complain of severe pain and requesting more pain medication. Dr. Villareal at bedside and stated not to administer more pain medication at this time 1845 Report called to RN, Shanika. RN notified of pt's pain control issues. Discussed further pain med regimen. All questions and concerns addressed at this time. 1850 Pt meets criteria to discharge from pacu. Transport requested. 1900 Transport to bedside. Pt transported to in stable condition. * Siri Noble RN - 06/08/2024 12:41 PM EST Pt admitted to [facility] room 11 and oriented to unit. SCD sleeves applied. Nares swabbed. Pt verbalized permission for first name, last initial and physicians name on white board. [facility] board and discharge criteria explained, pt and family verbalized understanding. Pt denies thoughts of harming self or others. Call light in reach. Family at the bedside. Trev [phone] * Conchita Sawyer RN - 06/04/2024 2:00 PM EST We do have Cardiac and medical clearances, I called and LM for Rosa LAW with Dr. Holloway that K* level was a little low at 3.3 and urine from 04/29/24 was + for Klebsiella - please check to make sure these were addressed- patient did not return our PAT call. * Conchita Sawyer RN - 06/01/2024 2:08 PM EST PAT call attempted, patient unavailable, left message to please call us back at your earliest convenience; [phone] documented [facility] this [facility] Discharge instructions* Discharge Instructions* Genevieve Jones RN - 06/11/2024 7:51 AM EST Wound Care: -Do not change dressing or shower until Home Health has removed the Hemovac drain -Do not change dressing on woun vac. Keep vac plugged in to charge -Once drain is removed, start dressing changes once daily until incision is clean and dry, then okay to leave open to air. -Do not submerge incision in water. Avoid hot-tubs and pools -Do not shower until the drain has been removed and try to keep incision as dry as possible. Restrictions: -Limit bending and twisting -No lifting over 10-15 lbs -Walk as much as tolerated, take short frequent walks throughout the day and try to take one long walk a day (start at 5 minutes and increase as tolerated) -Wear back brace when walking Medications: -Pain medications can cause postoperative constipation. Take an over the counter stool softener while taking the pain medication -Okay to resume vitamins and supplements one week after surgery -Hold all NSAIDs (I.e. ibuprofen) for 6 months following surgery -Okay to resume aspirin 72 hours after surgery and all other blood thinners 5 days following surgery unless otherwise directed Postoperative appointment: -Follow up in the office in 6 weeks as scheduled (if you do not have an appointment, please contactthe office) - ext [phone] If any concerning symptoms, such as calf pain/swelling, new numbness/tingling or pain please the contact the office. If concerning symptoms including chest pain or difficulty breathing, go to the Emergency Department. documented in this encounterBon [facility] History of Present illness Narrative* Yossi Hunter MD - 05/07/2024 9:15 AM EST .CARDIOLOGY OFFICE VISIT CHIEF COMPLAINT Chief Complaint Patient presents with Pre-op Clearance POC to have lumbar surgery on pending with Dr. Jovana Guardado in [facility] HISTORY OF PRESENT ILLNESS Candy Booth is a 53 y.o. year old female patient with a history of a mildly dilated ascending aorta which measured 3.9 cm on the recent CTA in June 2023 that showed mild nonobstructive disease in the coronaries. She had recent ICU admission in [place] for GI bleeding December 2023 and had an echocardiogram at that time that shows normal EF of 60% with no gross valvular abnormalities. Thiswas obtained because of mildly elevated troponin in the setting of the GI bleed. She has a history of resting we had recently seen for preop clearance prior to back surgery of L4 and L5 fusion. Apparently this was canceled because she was noted to be tachycardic prior to the surgery. She has been doing well denies any recurrent chest pain or shortness of breath. Once again I reviewed the EKG from 04/07/2024 that showed normal sinus rhythm with borderline tachycardia and heart rate of 99 bpm. There are no acute ST or T wave changes. ASSESSMENT AND PLAN 1. Preoperative cardiac evaluation: Patient is in her baseline functional status, exceeding 4 METS with no chest pain or significant shortness of breath with her day-to-day activities. As noted above, cardiac testing including CT angiogram did not show any significant CAD and her LV function is normal. She has mild resting tachycardia on exam today so I have increased her metoprolol to 50 mg daily. She is therefore at an acceptable cardiac risk from the proposed surgery. 2. Resting tachycardia: As noted above, we I have increased her beta-blockers to 50 mg daily. 3. Mildly dilated ascending aorta: Measuring 3.[address] as noted above. We will continue with serial imaging for monitoring. Problem List Items Addressed This Visit Cardiac and Vasculature Essential hypertension Relevant Medications metoprolol succinate XL (Toprol-XL) 50 mg 24 hr tablet Heart valve disease Relevant Medications metoprolol succinate XL (Toprol-XL) 50 mg 24 hr tablet Dilation of aorta (CMS-HCC) Endocrine/Metabolic BMI 32.0-32.9,adult Tobacco Smoker Recent Cardiovascular Testing: Echo- Stress- Cath- Carotid Ultrasound- Past Medical History Past Medical History: Diagnosis Date Heart valve disease Hypertension Social History Social History Tobacco Use Smoking status: Former Current packs/day: 0.00 Types: Cigarettes Quit date: 2021 Years since quittin.9 Smokeless tobacco: Never Substance Use Topics Alcohol use: Yes Comment: rarely, 1x a ,month or less Drug use: Never Family History Family History [...] Unknown Other Reaction(s): Unknown, Unknown Codeine Other PATIENT DENIES Intolerance, sleep apnea Outpatient Medications: Current Outpatient Medications Medication Instructions ALPRAZolam (XANAX) 0.5 mg, Every 4 hours amitriptyline (ELAVIL) 100 mg, Nightly cholecalciferol (VITAMIN D-3) 50,000 Units, 2 times weekly eletriptan (RELPAX) 40 mg, As needed metoprolol succinate XL (TOPROL-XL) 50 mg, oral, Daily, Do not crush or chew. oxyCODONE (Roxicodone) 20 mg immediate release tablet 1 tablet, Every 4 hours PRN pregabalin (LYRICA) 200 mg, 3 times daily sertraline (ZOLOFT) 100 mg, Daily Recent Lab Results: CBC: No results [...] systems reviewed and are negative. VITALS Vitals: 05/07/24 0922 BP: 126/80 Pulse: 100 Wt Readings from Last 4 Encounters: 05/07/24 86.2 kg (190 lb) 06/13/23 86.2 kg (190 lb) 05/27/23 86.6 [...] Pulses: Intact distal pulses. Edema: Peripheral edema present. Ankle: bilateral 1+ edema of the ankle. Abdominal: Tenderness: There is no abdominal tenderness. Musculoskeletal: Normal range of motion. General: No tenderness. Cervical back: Normal range of motion. Skin: General: Skin is warm and dry. Neurological: General: No focal deficit present. Mental Status: Alert and oriented to person, place and time. documented in this [facility] Work Phone: 1(812) 758-914212-13-2024 Instructions* Patient Instructions* Paulo Bucio LPN - 05/07/2024 9:15 AM EST Increase metoprolol succinate to 50 mg a day Cleared for surgery Keep visit scheduled. Patient educated on proper medication use. Patient educated on risk factor modification. Please bring any lab results from other providers / physicians to your next appointment. Please bring all medicines, vitamins, and herbal supplements with you when you come to the office. Prescriptions will not be filled unless you are compliant with your follow up appointments or have a follow up appointment scheduled as per instruction of your physician. Refills should be requested at the time of your visit. documented in this [facility] Work Phone: 1(866) 843-723411-14-2024 Evaluation note* Diagnosis Onset Date Resolution Status Admit Date Anxiety acute April 08, 2024 2:57pm Chronic pain syndrome acute Mar 2:57pm Lumbar degenerative disc disease acute April 08, 2 024 2:57pm Peripheral neuropathic pain acute April 08, 2024 2:57pm Preoperative examination acute April 08, 2024 2:57pm Dysuria acute April 29, 2024 3:15pm Hyponatremia acute April 3:15pm [facility] Work Phone: 1(542) 708-166311-13-2024 History of Present illness Narrative* Yossi Hunter MD - 04/07/2024 8:30 AM EST .CARDIOLOGY OFFICE VISIT CHIEF COMPLAINT Chief Complaint Patient presents with Pre-op Clearance POC to have lumbar surgery on 04/21/[address] Jovana Guardado in [facility] HISTORY OF PRESENT ILLNESS Candy Booth is a 53 y.o. year old female patient with a history of a mildly dilated ascending aorta which measured 3.9 cm on the recent CTA in June 2023 that showed mild nonobstructive disease in the coronaries. She had recent ICU admission in [place] for GI bleeding December 2023 and had an echocardiogram at that time that shows normal EF of 60% with no gross valvular abnormalities. Thiswas obtained because of mildly elevated troponin in the setting of the GI bleed. She has been doingwell since her discharge denying any chest pain or significant shortness of breath. She has a history of resting tachycardia for which she was beta-blockers which apparently was discontinued during her recent ICU admission. Patient is here today for preop clearance prior to back surgery of L4 and L5 fusion. She denies anychest pain as noted above or significant shortness of breath. She is also denying palpitations presyncope or syncope. EKG today shows sinus rhythm at 99 bpm with no acute ST or T wave changes. ASSESSMENT AND PLAN 1. Preoperative cardiac evaluation: Patient is in her baseline functional status, exceeding 4 METS with no chest pain or significant shortness of breath with her day-to-day activities. As noted above, cardiac testing including CT angiogram did not show any significant CAD and her LV function is normal. EKG today is also within normal limits except for mild resting tachycardia. She is therefore atan acceptable low cardiac risk from the proposed surgery. Will resume metoprolol XL at 25 mg daily for her resting tachycardia. 2. Resting tachycardia: As noted above, we will resume her low-dose beta- blockers follow-up as scheduled. Problem List Items Addressed This Visit Essential hypertension Smoker Heart valve disease Dilation of aorta ([facility]-H[facility]) Pre-op examination Other Visit Diagnoses Pre-operative clearance Recent Cardiovascular Testing: Echo- Stress- Cath- Carotid Ultrasound- Past Medical History Past Medical History: Diagnosis Date Heart valve disease Hypertension Social History Social History Tobacco Use Smoking status: Former Current packs/day: 0.00 Types: Cigarettes Quit date: 2021 Years since quittin.8 Smokeless tobacco: Never Substance Use Topics Alcohol use: Yes Comment: rarely, 1x a ,month or less Drug use: Never Family History Family History [...] Unknown Other Reaction(s): Unknown, Unknown Codeine Other PATIENT DENIES Intolerance, sleep apnea Outpatient Medications: Current Outpatient Medications Medication Instructions ALPRAZolam (XANAX) 0.5 mg, Every 4 hours amitriptyline (ELAVIL) 100 mg, Nightly atenolol (Tenormin) 100 mg tablet Take one tablet two hours before testing. cholecalciferol (VITAMIN D-3) 50,000 Units, 2 times weekly eletriptan (RELPAX) 40 mg, As needed metoprolol succinate XL (TOPROL-XL) 25 mg, oral, 2 times daily, Do not crush or chew. oxyCODONE (ROXICODONE) 30 mg, Every 4 hours pregabalin (LYRICA) 200 mg, 3 times daily sertraline (ZOLOFT) 100 mg, Daily Recent Lab Results: CBC: No results [...] systems reviewed and are negative. VITALS Vitals: 04/07/24 0838 BP: 110/68 Pulse: 99 Wt Readings from Last 4 Encounters: 06/13/23 [...] person, place and time. [facility] Work Phone: [phone]) 664-610911-13-2024 Instructions* Patient Instructions* Paulo Bucio LPN - 04/07/2024 8:30 AM EST Start Metoprolol Succinate 25 mg one a day 6 month visit Patient educated on proper medication use. Patient educated on risk factor modification. Please bring any lab results from other providers / physicians to your next appointment. Please bring all medicines, vitamins, and herbal supplements with you when you come to the office. Prescriptions will not be filled unless you are compliant with your follow up appointments or have a follow up appointment scheduled as per instruction of your physician. Refills should be requested at the time of your visit. [facility] Work Phone: 1(847) 270-696811-05-2024 Evaluation note* Diagnosis Onset Date Resolution Status Admit Date Anxiety acute March 30, 2024 3:27pm Chronic pain syndrome acute Nov 2023 3:27pm Anxiety acute April 08, 2024 2:57pm Chronic pain syndrome acute Mar 2:57pm Lumbar degenerative disc disease acute April 08, 2 024 2:57pm Peripheral neuropathic pain acute April 08, 2024 2:57pm Preoperative examination acute April 08, 2024 2:57pm Dysuria acute April 29, 2024 3:15pm Hyponatremia acute April 3:15pm [facility] Work Phone: 1(287) 507-802708-27-2024 Evaluation note* Diagnosis Onset Date Resolution Status Admit Date Anemia due to blood loss acute January 20, 2024 1:48pm Chronic gastrojejunal anastomotic ulcer acute January 19, 2 024 1:48pm Weakness acute January 19, 2 024 1:48pm Cellulitis of left foot acute S 2023 11:15am Left foot pain acute January 30, 2024 11:15am Anxiety acute February 25, 2 024 2:56pm Chronic pain syndrome acute Feb 2:56pm Depression acute February 25, 2 024 2:56pm Left foot pain acute February 2:56pm Anxiety acute March 30, 2024 3:27pm Chronic pain syndrome acute Mar 3:27pm [facility] Work Phone: 1(232) 967-911808-12-2024 Hospital course Narrative* Ana Malone RN - 01/05/2024 7:15 PM EDT Discharge order noted. AVS printed and reviewed with patient. Reviewed Medications and scripts thatwill be sent home. Answered patient questions at this time. All belongings were checked and sent with patient. Patient and spouse Trev expressed understanding of all teachings and no further questions at this time. [facility] in [facility] Discharge instructions* Discharge Instr - JOCY* Shona Greenberg RN - 01/05/2024 5:45 PM EDT Continuity of Care Form Patient Name: Candy Booth : 1970 Admit date: 12/30/2023 Discharge date: 01/05/24 Code Status Order: Full Code Advance Directives: Advance Care Flowsheet Documentation Admitting Physician: Christopher Morataya MD PCP: Maureen Mitchell MD Discharging Nurse: Ana Malone RN Discharging Hospital Unit/Room#: Discharging Unit Emergency Contact: Extended Emergency Contact Information Primary Emergency Contact: Emmy Karimi [facility] Mobile Relation: Spouse Secondary Emergency Contact: Amy booth Mobile Relation: Child Past Surgical History: Past Surgical History: Procedure Laterality Date APPENDECTOMY 1993 COLON SURGERY COLONOSCOPY 2018 COSMETIC SURGERY 2009 total body lift DILATATION, ESOPHAGUS ENDOSCOPY, COLON, DIAGNOSTIC 2018 ESOPHAGOGASTRODUODENOSCOPY EYE SURGERY 2001 lasik surgery FOOT SURGERY Had foot surgery with nerve injury leaving patient with chronic pain of foot GASTRIC BYPASS SURGERY HYSTERECTOMY (CERVIX STATUS UNKNOWN) 1993 IR EMBOLIZATION HEMORRHAGE 01/01/2024 IR EMBOLIZATION HEMORRHAGE 01/01/2024 Nasir Martinez MD [facility] SPECIAL PROCEDURES LAPAROSCOPY Small bowel obstruction due to adhesions RI COLONOSCOPY FLX DX W/COLLJ SPEC WHEN PFRMD N/A 10/20/2017 COLONOSCOPY performed by Juancarlos Maldonado MD at [facility] Endoscopy RI EGD TRANSORAL CONTROL BLEEDING ANY METHOD Left 10/19/2017 EGD CONTROL HEMORRHAGE performed by Juancarlos Maldonado MD at [facility] Endoscopy RI LAMNOTMY INCL W/DCMPRSN NRV ROOT 1 INTRSPC LUMBR N/A 02/09/2018 L4-5 DISKECTOMY LEFT performed by Ronal Matos MD at [facility] OR UPPER GASTROINTESTINAL ENDOSCOPY UPPER GASTROINTESTINAL ENDOSCOPY N/A 01/01/2024 ESOPHAGOGASTRODUODENOSCOPY CONTROL HEMORRHAGE performed by Jen Harvey MD at [facility] OR UPPER GASTROINTESTINAL ENDOSCOPY 01/01/2024 ESOPHAGOGASTRODUODENOSCOPY SCLEROTHERAPY performed by Jen Harvey MD at [facility] OR Immunization History: Immunization History Administered Date(s) Administered COVID-19, PFIZER PURPLE top, DILUTE for use, (age 12 y+), 30mcg/0.3mL 08/02/2020, 08/22/2020, 05/13/2021 Active Problems: Patient Active Problem List Diagnosis Code Hypovolemic shock ([facility]) R57.1 Acute upper GI bleed K92.2 Lactic acidosis E87.20 Hyponatremia E87.1 Orthostatic hypotension I95.1 Hypotension due to blood loss I95.89, R58 AAA (abdominal aortic aneurysm) ([facility]) I71.40 Complex regional pain syndrome [id number] Peptic ulcer disease K27.9 Acute blood loss anemia D62 GI bleed K92.2 MVP (mitral valve prolapse) I34.1 Iron deficiency E61.1 Troponin level elevated R79.89 Hypocalcemia E83.51 Hypokalemia E87.6 Hypoalbuminemia due to protein-calorie malnutrition ([facility]) E88.09, E46 Gastric ulcer without hemorrhage or perforation K25.9 HNP (herniated nucleus pulposus), lumbar M51.26 Syncope R55 Moderate aortic regurgitation I35.1 History of Linsey-en-Y gastric bypass Z98.84 Acute gastrojejunal anastomotic ulcer K28.3 Chronic prescription opiate use Z79.891 Other specified anxiety disorders F41.8 Primary hypertension I10 Cholelithiasis K80.20 Gastrojejunal ulcer with hemorrhage K28.4 Isolation/Infection: Isolation No Isolation Patient Infection Status None to display Nurse Assessment: Last Vital Signs: BP 106/71 Pulse 89 Temp 98 F (36.7 C) (Oral) Resp 18 Ht 1.702 m (5' 7.01 ) Wt 92.6 kg (204 lb 2.3 oz) SpO2 91% BMI 31.97 kg/m Last documented pain score (0-10 scale): Pain Level: 4 Last Weight: Wt Readings from Last 1 Encounters: 01/05/24 92.6 kg (204 lb 2.3 oz) Mental Status: oriented and alert IV Access: - None Nursing Mobility/ADLs: Walking Assisted Transfer Assisted Bathing Assisted Dressing Assisted Toileting Assisted Feeding Independent Software Quality Automation Engineer Independent Med Delivery whole Wound Care Documentation and Therapy: Incision 02/09/18 Back (Active) Number of days: 2156 Elimination: Continence: Bowel: Yes Bladder: Yes Urinary Catheter: None Colostomy/Ileostomy/Ileal Conduit: No Date of Last BM: 01/05/24 Intake/Output Summary (Last 24 hours) at 01/05/2024 1744 Last data filed at 01/05/2024 0840 Gross per 24 hour Intake 155 ml Output 500 ml Net -345 ml I/O last 3 completed shifts: In: 2552.7 [P.O.:510; I.V.:2.7] Out: 4135 [Urine:4135] Safety Concerns: At Risk for Falls Impairments/Disabilities: None Nutrition Therapy: Current Nutrition Therapy: - Oral Diet: General Routes of Feeding: Oral Liquids: No Restrictions Daily Fluid Restriction: no Last Modified Barium Swallow with Video (Video Swallowing Test): not done Treatments at the Time of Hospital Discharge: Respiratory Treatments: DUONEB Every 4 hours PRN Oxygen Therapy: is not on home oxygen therapy. Ventilator: - No ventilator support Rehab Therapies: Physical Therapy and Occupational Therapy Weight Bearing Status/Restrictions: No weight bearing restrictions Other Medical Equipment (for information only, NOT a DME order): walker Other Treatments: Patient's personal belongings (please select all that are sent with patient): None, Cell phone, battery charger tester, shoes pants shirt RN SIGNATURE: CASE MANAGEMENT/SOCIAL WORK SECTION Inpatient Status Date: Readmission Risk Assessment Score: Readmission Risk Risk of Unplanned Readmission: 15 Discharging to Facility/ Agency Name: Address: Phone: Fax: Dialysis Facility (if applicable) Name: Address: Dialysis Schedule: Phone: Fax: Business Law Instructor/Food Service Order Clerk signature: {Esignature:[id number]} PHYSICIAN SECTION Prognosis: Fair Condition at Discharge: Stable Rehab Potential (if transferring to Rehab): Good Recommended Labs or Other Treatments After Discharge: - Take all medications as prescribed - Follow up with PCP in 1-2 weeks - In case of any worsening condition please visit Emergency Room. Physician Certification: I certify the above information and transfer of Candy Booth is necessary for the continuing treatment of the diagnosis listed and that she requires Home Care for greater 30 days. Update Admission H&P: No change in H&P PHYSICIAN SIGNATURE: * Attachments The following attachments cannot be sent through Care Everywhere. * Potassium Chloride Microencapsulated Extended Release Oral Tablet 20 mEq (POTASSIUM EXTENDED-RELEASE DISPERSIBLE TABLET - ORAL) ([place]) * Hypotension ([place]) * GI Bleed ([place]) documented in this [facility] History of Present illness Narrative* Yael Santamaria, OT - 01/05/2024 12:15 PM EDT Facility/Department: [facility] CAR 2- STEPDOWN Occupational Therapy Initial Evaluation Patient Name: Candy Booth : 1970 Date of Service: 01/05/2024 Obtained from medical chart: HISTORY OF PRESENT ILLNESS: 53 years old female with history of AAA, CAD, atrial fibrillation not on anticoagulation, MVP, Linsey-en-Y gastric bypass in 2007 with multiple upper GI bleeding associated with NASID use, small bowel obstruction, appendectomy, hysterectomy presented hospital with abdominal pain. Discharge Recommendations Discharge Recommendations: Patient would benefit from continued therapy after discharge Assessment Performance deficits / Impairments: Decreased functional mobility ;Decreased ADL status;Decreased cognition;Decreased safe awareness;Decreased balance;Decreased endurance;Decreased strength Assessment: Patient demonstrates decreased endurance throughout session and decreased balance increasing risk for falls this date without assistance; Pt utilized RW for support to complete mobility from recliner > bathroom with verbal cues for appropriate RW position to reduce fall risk. Pt required CGA for dynamic seated tasks and all standing tasks this date d/t deficits. Pt limited in mobility distance d/t decreased endurance throughout functional tasks.Patient would benefit from continued acute OT services to address functional deficits through skilled intervention to promote independence and safety with ADL/IADLs and functional transfers/mobility for safe return to prior living environment and level of function. Prognosis: Good Decision Making: Medium Complexity REQUIRES OT FOLLOW-UP: Yes Activity Tolerance Activity Tolerance: Patient Tolerated treatment well;Patient limited by fatigue Safety Devices Type of Devices: Nurse notified;Left in chair;Call light within reach;Patient at risk for falls;Gait belt Restraints Restraints Initially in Place: No Restrictions/Precautions Restrictions/Precautions Restrictions/Precautions: Bedrest with Bathroom Privileges Position Activity Restriction Other position/activity restrictions: activity as tolerated Subjective General Patient assessed for rehabilitation services?: Yes Family / Caregiver Present: No General Comment Comments: RN ok'd patient for OT session. Pt pleasant, cooperative and agreeable. Pt reports no pain. Home Setup/Prior Level of Function Social/Functional History Lives With: Spouse Type of Home: House Home Layout: One level Home Access: Stairs to enter with rails Entrance Stairs - Number of Steps: 2 Entrance Stairs - Rails: Both Bathroom Shower/Tub: Walk-in shower;Shower chair with back Bathroom Toilet: Standard Bathroom Equipment: Grab bars in shower;Commode (suction cup) Home Equipment: Rollator;Walker - Rolling;Cane - Quad (uses rollator primarily) ADL Assistance: Independent (spouse helps if on time constraint) Homemaking Assistance: Independent Homemaking Responsibilities: No (spouse completes) Meal Prep Responsibility: No Laundry Responsibility: No Cleaning Responsibility: No Shopping Responsibility: No Other (Comment): 2 dogs Ambulation Assistance: Independent Transfer Assistance: Independent Active Creasing [employer] Cutting Press Feeder: No Patient's Creasing And Cutting Press Feeder Info: Spouse completes Occupation: On disability Leisure & Hobbies: dogs, sitting outside, [place], visiting children Additional Comments: Spouse works outside the home day shift; patient is alone during the day Vision/Hearing Vision Vision: Within Functional Limits Hearing Hearing: Exceptions to WFL Hearing Exceptions: Hard of hearing/hearing concerns;No hearing aid BUE Assessment Gross Assessment AROM: Within functional limits Strength: Generally decreased, functional (B UE strength grossly 4-/5) Coordination: Within functional limits Tone: Normal Sensation: Impaired (reports numbness in bilateral feet) Hand Dominance: Right Objective Orientation Orientation Level: Oriented to person;Oriented to time;Oriented to situation;Oriented to place Cognition Overall Cognitive Status: Exceptions Arousal/Alertness: Appears intact Following Commands: Appears intact Attention Span: Difficulty attending to directions Memory: Appears intact Safety Judgement: Decreased awareness of need for assistance Problem Solving: Decreased awareness of errors Insights: Decreased awareness of deficits Initiation: Does not require cues Sequencing: Does not require cues Activities of Daily Living Feeding: Independent Grooming: Modified independent Grooming Skilled Clinical Factors: Pt completed oral care and washing face standing sinkside at [place] with increased time to complete UE Bathing: Stand by assistance LE Bathing: Contact guard assistance UE Dressing: Stand by assistance LE Dressing: Contact guard assistance LE Dressing Skilled Clinical Factors: Pt sat on toilet to thread undergarments at [facility] for safety; Pt required increased time to thread socks over toes seated on toilet. Pt able to complete clothing mgmt over hips at [facility] Toileting: Contact guard assistance Toileting Skilled Clinical Factors: Pt required [facility] for clothing mgmt standing at toilet; Pt sat ontoilet and completed hygiene seated at CGA for safety; Pt utilized GB to complete transfer on/off toilet for support; Balance Balance Sitting: With support (CGA seated on toilet during dynamic tasks, SBA unsupported on recliner ~12 minutes cumulatively) Standing: With support (toileting tasks, sinkside ADLs, using RW for support, able to complete withhand release from RW at [facility] grossly 6-7 minutes) Transfers/Mobility Bed mobility Bed Mobility Comments: in recliner upon arrival and at end of session Transfers Sit to stand: Contact guard assistance Stand to sit: Contact guard assistance Transfer Comments: verbal cues for appropriate hand placement with fair return Functional Mobility: Contact guard assistance;Adaptive equipment;Increased time to complete Functional Mobility Skilled Clinical Factors: Pt completed functional mobility using RW for supportto complete mobility from recliner > toilet > sink > recliner, limited d/t fatigue; verbaland tactile cues provided throughout for support for proper placement of RW to reduce fall risk Patient Education Patient Education Education Given To: Patient Education Provided: Role of Therapy;Plan of Care;Precautions;ADL Adaptive Strategies;Transfer Training;Equipment;Mobility Training;Fall Prevention Strategies;Energy Conservation Education Method: Verbal;Teach Back;Demonstration Barriers to Learning: Cognition Education Outcome: Verbalized understanding;Continued education needed Goals Short Term Goals Time Frame for Short Term Goals: Patient will, by discharge Short Term Goal 1: demo LB ADLs at Mod I Short Term Goal 2: demo toileting at SBA using DME PRN Short Term Goal 3: demo functional transfers/mobility using LRAD at Supervision to participate in ADLs Short Term Goal 4: demo 10+ Min of dynamic standing tolerance at SBA to participate to ADLs Short Term Goal 5: demo proper placement of RW during funcitonal tasks with 0 VCs Plan Occupational Therapy Plan Times Per Week: 4-5x/wk Current Treatment Recommendations: Strengthening, Balance training, Functional mobility training, Endurance training, Safety education & training, Positioning, Equipment evaluation, education, & procurement, Patient/Caregiver education & training, Self-Care / ADL, Home management training AM-PAC Daily Activities Inpatient AM-PAC Daily Activity - Inpatient How much help is needed for putting on and taking off regular lower body clothing?: A Little How much help is needed for bathing (which includes washing, rinsing, drying)?: A Little How much help is needed for toileting (which includes using toilet, bedpan, or urinal)?: A Little How much help is needed for putting on and taking off regular upper body clothing?: A Little How much help is needed for taking care of personal grooming?: None How much help for eating meals?: None AM-PAC Inpatient Daily Activity Raw Score: 20 AM-PAC Inpatient ADL T-Scale Score : 42.03 ADL Inpatient CMS 0-100% Score: 38.32 ADL Inpatient CMS G-Code Modifier : CJ Minutes OT Individual Minutes Time In: 1058 Time Out: 1130 Minutes: 32 Time Code Minutes Timed Code Treatment Minutes: 24 Minutes * Ana Malone RN - 01/05/2024 9:48 AM EDT Contacted by lab on patient K 2.8, Dr. Rabago at bedside and made aware of critical lab. * Keli Rabago MD - 01/05/2024 7:56 AM EDT Images from the original note were not included. [facility] Office: [phone] Carter Melendez DO, Anuj Lim DO, Isela Hensley DO, Jayjay Be DO, Garry Braun MD, Cher Nelson MD, Cici Meyer MD, Betty Richards MD, Tang Brewer MD, Paul Sterling MD, Sita Gee MD, Yamilet Pruett DO, Marcella Winters MD, Tanner Leonardo MD, Ibrahima Melendez DO, Michael Arellano MD, Flaco Mc DO, Suzanne Celeste MD, Hazel Morataya MD, Maura Edward MD, Renee Garnica MD, Devin Monreal MD, Frederick Salgado MD, Kvng Reed MD, Sanchez Wade MD, Dillon Barrera MD, Keli Rabago MD, Clark Mcfarlane DO, Joseph Blair DO, Ni Leung MD, Bryant Carrillo MD, Christina Mackey, DRILLING ASSISTANT, Sherri Nunes, DRILLING ASSISTANT, Cory Andrade, DRILLING ASSISTANT, Debbie Solis, [facility],Radha Augustin, DRILLING ASSISTANT, Alyssa Judge, DRILLING ASSISTANT, Kristen Daly, DRILLING ASSISTANT, Jennifer Francis, DRILLING ASSISTANT, Neli Bolanos, PA-C, Shruthi Carlos PA-C, Jayshree Oswald, DRILLING ASSISTANT, Oralia Fisher, DRILLING ASSISTANT, Rachel Allison, DRILLING ASSISTANT, Kerry Rodas,DRILLING ASSISTANT, Rashmi Torres, [facility], Jaky Green, [facility], Damaris Chauhan, DRILLING ASSISTANT, Carol Gimenez, DRILLING ASSISTANT [facility] IN-PATIENT SERVICE [facility] Progress Note 01/05/2024 7:56 AM Name: Candy Booth Acct: [id number] Room: Day: 6 Admit Date: 12/30/2023 5:58 PM PCP: Maureen Mitchell MD Code Status: Full Code Subjective: C/C: Abdominal pain Interval History Status: improved. Patient seen and examined at bedside this morning. No acute events overnight. Patient resting comfortably. K was noted to be low at 2.8 this morning. Patient wanting to go home. Discussed possible SNF placement, patient declined at this time. Discussed with patient we would have PT/OT evaluate her for safety and then plan on discharge if her K level improved as well. Patient is agreeable. Brief History: Patient is a 53-year-old female with history of AAA, CAD, A-fib not on anticoagulation, Hx Linsey-en-Y gastric bypass in 2007 with multiple upper GI bleeds 2/2 NSAID use, SBO, appendectomy, and hysterectomy who presented as a transfer from [facility] with complaints of dark black stool. Patient was treated with PPI, given 5 units PRBC and transferred to [facility] for further GI workup and management. GI team here was consulted, EGD was completed and showed large gastrojejunal anastomosis ulcer with visible vessels. Patient also treated with heater probe with formal coagulation, epinephrine for hemostasis and Hemospray. Postop patient's hemoglobin trended down from 10.6-7.7 patient developed severe abdominal pain and hypotension. Patient needed to be given 2 units PRBC. Emergent CTA of the abdomen was ordered and noted some bleeding from the left gastric artery. IR and general surgery were consulted. IR performed intraoperative CTA with no extravasation. Bariatric surgery recom mended no acute intervention at this time. Patient continued on PPI, Carafate, H2 archie and hemoglobin monitoring. GI signed off. Patient now awaiting placement Review of Systems: Constitutional: negative for chills, fevers, sweats Respiratory: negative for cough, dyspnea on exertion, shortness of breath, wheezing Cardiovascular: negative for chest pain, chest pressure/discomfort, lower extremity edema, palpitations Gastrointestinal: negative for abdominal pain, constipation, diarrhea, nausea, vomiting Neurological: negative for dizziness, headache Medications: Allergies: Allergies Allergen Reactions Nsaids Other (See Comments) Other reaction(s): Other: See Comments Has not taken due to gastric bypass surgery in the past GI bleed Milk (Cow) Other (See Comments) Had gastric bypass in the past, GI bleed history Acetaminophen-Codeine Other (See Comments) Sleep apnea Codeine Other (See Comments) Intolerance, sleep apnea Current Meds: Scheduled Meds: pantoprazole (PROTONIX) 40 mg in sodium chloride (PF) 0.9 % 10 mL injection 40 mg IntraVENous Q12H amLODIPine 5 mg Oral Daily carvedilol 6.25 mg Oral BID WC sucralfate 1 g Oral 3 times per day pantoprazole 80 mg IntraVENous Once cyanocobalamin 1,000 mcg IntraMUSCular Once sodium chloride flush 5-40 mL IntraVENous 2 times per day pregabalin 200 mg Oral TID RT sertraline 200 mg Oral Nightly Continuous Infusions: sodium chloride sodium chloride sodium chloride 50 mL/hr at 01/04/24 1717 sodium chloride PRN Meds: ondansetron, labetalol, potassium chloride OR potassium alternative oral replacement OR potassium chloride, sodium chloride, sodium chloride, ipratropium 0.5 mg-albuterol 2.5 mg, guaiFENesin, benzonatate, sodium chloride flush, sodium chloride, acetaminophen OR acetaminophen, ALPRAZolam, oxyCODONE OR oxyCODONE, HYDROmorphone, hydrALAZINE Data: Past Medical History: has a past medical history of AAA (abdominal aortic aneurysm) (HCC), Arthritis, CAD (coronary artery disease), Chronic headache, Complex regional pain syndrome, Depression, JESSICA (generalized anxiety disorder), History of blood transfusion, Left tibial fracture, MVP (mitral valve prolapse), Neuropathy, Obesity - status post gastric bypass, Peptic ulcer disease, PONV (postoperative nausea and vomiting), Primary hypertension, and Small bowel obstruction - due to adhesions. Social History: reports that she has been smoking cigarettes. She started smoking about 9 years ago. She has a 9.6 pack-year smoking history. She has never used smokeless tobacco. She reports that she does not drink alcohol. Family History: Family History Problem Relation Age of Onset Cancer Mother renal, right kidney removed Other Mother thyroidectomy, neck fusion Heart Disease Father 55 Arthritis Father Coronary Art Dis Father Cancer Father lung Other Sister thryoidectomy, Arthritis Sister cervical fusion No Known Problems Brother Other Daughter mitral valve prolapse, low albumin Vitals: BP 120/76 Pulse 87 Temp 98.3 F (36.8 C) (Oral) Resp 12 Ht 1.702 m (5' 7.01 ) Wt 86.9 kg (191 lb 9.3 oz) SpO2 91% BMI 30.00 kg/m Temp (24hrs), Av.1 F (36.7 C), Min:97.5 F (36.4 C), Max:98.4 F (36.9 C) Recent Labs 01/02/24 1615 POCGLU 93 I/O (24Hr): Intake/Output Summary (Last 24 hours) at 01/05/2024 0756 Last data filed at 01/04/2024 1717 Gross per 24 hour Intake 891.97 ml Output 2285 ml Net -1393.03 ml Labs: Hematology: Recent Labs 01/03/24 0127 01/03/24 0600 01/03/24 1245 01/03/24 2142 01/04/247 01/04/24 1744 WBC 8.4 7.3 -- -- 6.8 -- RBC 2.82* 2.72* -- -- 2.81* -- HGB 9.0* 8.6* < > 9.3* 8.8* 8.9* HCT 26.2* 25.5* < > 28.3* 27.7* 27.8* MCV 92.9 93.8 -- -- 98.6 -- MCH 31.9 31.6 -- -- 31.3 -- MCHC 34.4 33.7 -- -- 31.8 -- RDW 22.1* 21.8* -- -- 21.1* -- PLT 219 220 -- -- 234 -- MPV 9.6 9.7 -- -- 9.4 -- < > = values in this interval not displayed. Chemistry: Recent Labs 01/03/24 0127 01/03/24 0600 01/04/24 0457 NA -- 140 138 K 3.1* 3.4* 3.1* CL -- 106 104 CO2 -- GLUCOSE -- 95 97 BUN -- 3* 3* CREATININE -- 0.3* 0.3* MG -- 1.8 -- ANIONGAP -- 10 10 LABGLOM -- >90 >90 CALCIUM -- 8.2* 8.0* Recent Labs 01/02/24 1615 POCGLU 93 ABG:No results found for: POCPH , PHART , PH , POCPCO2 , YZY9TEM , PCO2 , POCPO2 , PO2ART , PO2 , POCHCO3 , OEZ7RKJ , HCO3 , NBEA , PBEA , BEART , BE , THGBART , THB , UUZ6PLE , VSVB5PTJ , Q7QSAJVP , O2SAT , FIO2 No results found for: SPECIAL No results found for: CULTURE Radiology: CTA ABDOMEN PELVIS W WO CONTRAST Result Date: 01/02/2024 1. No active contrast extravasation or pseudoaneurysm. 2. Post Linsey-en-Y gastric bypass surgery with mural thickening and possible ulceration gastroenteric anastomosis, with a slightly irregular leftgastric branch vessel but no clear- cut contrast extravasation or definite pseudoaneurysm. 3. Small hiatus hernia and mural prominence gastric remnant/antrum; remainder residual stomach partially fluid-filled but otherwise WNL. 4. Some liquid stool noted in large bowel with gas-filled sigmoid but noobstruction or significant wall thickening elsewhere; remainder bowel structures WNL. 5. Small gallstone without CT evidence cholecystitis or biliary obstruction. 6. Compression deformity T11, and mild-moderate multilevel degenerative changes and some DDD, latter best seen L5-S1, L1-L2, and on either side T11. IR EMBOLIZATION HEMORRHAGE Result Date: 01/02/2024 1. No active contrast extravasation, pseudoaneurysm or other definite focal branch abnormality or treatable lesion demonstrated from the left gastric artery at this time. Postsurgical changes, as above. 2. Right groin femoral artery sheath left in place. 3. If there is continued clinical concern for active GI bleed, consider repeat angiography or nuclear medicine GI bleeding scan. Physical Examination: General appearance: alert, cooperative and no distress Mental Status: oriented to person, place and time and normal affect Lungs: clear to auscultation bilaterally, normal effort Heart: regular rate and rhythm, no murmur Abdomen: soft, nontender, nondistended, normal bowel sounds, no masses, hepatomegaly, splenomegaly Extremities: no edema, redness, tenderness in the calves Skin: no gross lesions, rashes, induration Assessment: Hospital Problems Last Modified POA * (Principal) GI bleed 12/30/2023 Yes Hyponatremia 01/01/2024 Yes Hypotension due to blood loss 01/01/2024 Yes Acute blood loss anemia 01/01/2024 Yes Hypokalemia 01/01/2024 Yes Syncope 12/31/2023 Yes Moderate aortic regurgitation 01/01/2024 Yes History of Linsey-en-Y gastric bypass 01/01/2024 Yes Acute gastrojejunal anastomotic ulcer 01/01/2024 Yes Chronic prescription opiate use 01/01/2024 Yes Other specified anxiety disorders 01/01/2024 Yes Primary hypertension 01/01/2024 Yes Cholelithiasis 01/01/2024 Yes Gastrojejunal ulcer with hemorrhage 01/01/2024 Yes Plan: Large gastrojejunal is not symptomatic ulcer s/p endoscopic therapy GI evaluated, bleeding controlled and signed off No acute surgical intervention per bariatric surgery Continue to monitor H&H daily Transfuse if hemoglobin less than 7 Continue on PPI, Carafate Follow-up with Dr. Harvey outpatient Avoid NSAID Hypokalemia Replacement ordered Recheck this afternoon If above 3, will be ok for pt to be discharged HTN Continue on Norvasc 5 mg daily A-fib Continue on Coreg 6.25 mg twice daily PT/OT today Possible discharge home Keli Rabago MD 01/05/2024 7:56 AM * Flaco Amaya MD - 01/04/2024 2:34 PM EDT Critical care team - Resident sign-out to medicine service Date and time: 01/04/2024 2:35 PM Patient's name: Candy Booth Patient's account/billing number: [id number] Patient's Date of : 1970 Age: 53 y.o. Date of Admission: 12/30/2023 5:58 PM Length of stay during current admission: 5 Primary Care Physician: Muareen Mitchell MD Code Status: Full Code Mode of physician to physician communication: [x] Via telephone [] In person Date and time of sign-out: 01/04/2024 2:35 PM Accepting Medicine team: intermed - Accepting team's attending: Dr. Rabago Patient's current ICU Bed: 3024 Patient's assigned bed on floor: 2025 [] Med-Surg Monitored [x] Step-down [] Psychiatry ICU [] Psych floor Reason for ICU admission: Hypotension in setting of significant GI bleeding requiring transfusions ICU course summary: Candy Booth is a 53 y.o. with a history of hypertension, valvular heart disease, mild LV thickening with severe LVOT with Valsalva, ascending aortic aneurysm, Linsey-en-Y in 2008 with history ofprior GI bleed in 2018 and previously seen anastomotic ulcer with NSAID use at the time presented initially to [facility] with syncope and acute rectal bleeding. Patient was treated with IV PPI, given 5 units PRBCs, was transferred to [facility] for further GI workup and management of GI bleed. Per patient, she had multiple different PPI, she only can tolerate Dexlansoprazole, which she used this medication intermittently when she has flare of GI bleeding and abdominal pain. Patient does not remember who and what hospital performed at the surgery of gastric Linsey-en-Y bypass. GI team was co nsulted for the GI bleeding, EGD was attempted with finding of large gastrojejunal anastomosis ulcer with visible vessels which was treated with heater probe with formal coagulation, and epinephrine for hemostasis on top of Hemospray. After their procedure, patient complains of increasing abdominalpain, her hemoglobin trend down from 10.6 to 7.7, and she became hypotensive and tachycardia. She received total 2 unit of blood here at [facility]. Patient received a normal saline bolus, approximately 200 mL. Patient's blood pressure was hypotensive, and as low as 85 systolic.However, Maps were sustained around 68-80.Emergent CTA of the abdomenwas ordered in order to evaluate for any bleed.The interventional radiologist attending came to CT,and read the CT and thought that there would be some bleeding from the left gastric artery that could be embolized.IR and General surgery were consulted. IR consultation for possible embolization andBariatric surgery consultation and evaluation for possible surgical repair. Prior to the patient going to the IR suite, patient was sent back up to ICU awaiting in IR suite time. She was hemodynamically stable, on fluid bolus, received 1 unit PRBCs. Patient was mentating well.IR performed intraoperative CTA with no extravasation. CTA of abdomen with contrast showing no extr avasation.Bariatric surgery stated nothing else to be done. Started clear liquid diet,PPI drip, Carafate, H2 archie and H&H 6 hourly. Procedures during patient's ICU stay: 12/31:Celiac and left gastric angiography:Celiac and left gastric angiograms show no active extravasation, pseudoaneurysm, or other treatable arterial lesion at this time. Rt BILLET STRAIGHTENER sheath left in place. Current Vitals: BP (!) 145/83 Pulse 97 Temp 97.9 F (36.6 C) (Oral) Resp 18 Ht 1.702 m (5' 7.01 ) Wt 86.9 kg (191 lb 9.3 oz) SpO2 98% BMI 30.00 kg/m Cultures: Blood cultures: [x] None drawn [] Negative [] Positive (Details: ) Urine Culture: [x] None drawn [] Negative [] Positive (Details: ) Sputum Culture: [x] None drawn [] Negative [] Positive (Details: ) Endotracheal aspirate: [x] None drawn [] Negative [] Positive (Details: ) Consults: 1. Bariatrics 2.IR Assessment: Patient Active Problem List Diagnosis Date Noted Moderate aortic regurgitation 01/01/2024 History of Linsey-en-Y gastric bypass 01/01/2024 Acute gastrojejunal anastomotic ulcer 01/01/2024 Chronic prescription opiate use 01/01/2024 Other specified anxiety disorders 01/01/2024 Primary hypertension 01/01/2024 Cholelithiasis 01/01/2024 Gastrojejunal ulcer with hemorrhage 01/01/2024 Syncope 12/31/2023 HNP (herniated nucleus pulposus), lumbar 02/06/2018 Acute blood loss anemia 10/19/2017 GI bleed 10/19/2017 Iron deficiency 10/19/2017 Troponin level elevated 10/19/2017 Hypocalcemia 10/19/2017 Hypokalemia 10/19/2017 Hypoalbuminemia due to protein-calorie malnutrition (HCC) 10/19/2017 MVP (mitral valve prolapse) Gastric ulcer without hemorrhage or perforation Hypovolemic shock (HCC) 10/18/2017 Acute upper GI bleed 10/18/2017 Lactic acidosis 10/18/2017 Hyponatremia 10/18/2017 Orthostatic hypotension 10/18/2017 Hypotension due to blood loss 10/18/2017 AAA (abdominal aortic aneurysm) ([facility]) Complex regional pain syndrome Peptic ulcer disease 09/23/2017 GI molecular panel:negative C diff Toxin/antigen:negative MRSA DNA probe:negative Follow up 1)H&H 8 hourly. 2)Continue Carafate 3)As per GI recommendations DC PPI drip. Start Protonix 40 mg IV twice daily then po at DC 4)Avoid NSAIDs, alcohol, smoking 5)clear liquid diet 6)Add Norvasc because of increase diastolic pressure Additional assessment: Neurologic: - Dx: Normal neurologic function - Mental status: Alert and oriented - Pain control: As needed with oxycodone and hydromorphone Cardiovascular: Hemodynamically stable Hypertensive on coreg 6.25 mg - EKG: Unremarkable - Echo: Increased wall thickness, dilated aortic root, EF 55 to 60% - Goal SBP maps above 65 Pulmonary: Maintain oxygen sats >92% Pulmonary toilet Current Pulse Ox: SpO2: 92 % GI/Nutrition Continue sucralfate Continue Protonix(last day) Diet: ADULT DIET; Clear Liquid Last BM: Today, blood tinged Renal/Fluid/Electrolyte IV Fluids: 0.9NS @ 50 mL/Hr I/O: In: 3794.6 [P.O.:150; I.V.:3644.6] Out: 3375 [Urine:3375] UOP: 1.6 cc/kg/hr overnight BUN/Cr:3/0.3 Monitor electrolytes, replace PRN ID WBC: Lab Results Component Value Date WBC 6.8 01/04/2024 Tmax: Temp (24hrs), Av.1 F (36.7 C), Min:97.5 F (36.4 C), Max:98.6 F (37 C) Antimicrobials: not indicated Hematology: Recent Labs 01/03/24 1245 01/03/24 2142 01/04/24 0457 HGB 9.1* 9.3* 8.8* trending down Endocrine: glucose controlled - most recent BGL is Recent Labs 01/02/24 0508 01/03/24 0600 01/04/24 0457 GLUCOSE 105* 95 97 DVT Prophylaxis SCD sleeves -thigh high Discharge Needs: PT, OT, ST, SW, and Case Management CODE STATUS: Full Code Above mentioned assessment and plan was discussed by me with the admitting medicine resident. The medicine team assigned to the patient by medicine admitting resident will be following up the patientfrom now onwards on the floor. Flaco Amaya Critical care resident Department of Internal Medicine/ Critical care [facility], [facility]) 01/04/2024, 2:35 PM * Tl Salazar, CHEESE WEIGHER - DRILLING ASSISTANT - 01/04/2024 10:[address] [facility]'s Gastroenterology Progress Note Candy Booth is a 53 y.o. female patient. Hospitalization Day:5 Chief consult reason: GI bleed Subjective: Patient seen and examined, no acute events overnight Patient denies any rectal bleeding or hematemesis Patient tolerating clear liquid diet Abdominal pain much improved today Hemoglobin dropped slightly from 9.3 to 8.8 g/dL VITALS: BP (!) 127/95 Pulse (!) 108 Temp 98.1 F (36.7 C) (Oral) Resp 21 Ht 1.702 m (5' 7.01 ) Wt 86.9 kg (191 lb 9.3 oz) SpO2 94% BMI 30.00 kg/m TEMPERATURE: Current - Temp: 98.1 F (36.7 C); Max - Temp Av F (36.7 C) Min: 97.5 F (36.4 C) Max: 98.4 F (36.9 C) Physical Assessment: General appearance: alert, cooperative and no distress Mental Status: oriented to person, place and time and normal affect Lungs: clear to auscultation bilaterally, normal effort Heart: regular rate and rhythm, no murmur Abdomen: soft, nontender, nondistended, normal bowel sounds, no masses, hepatomegaly, splenomegaly Extremities: no edema, redness, tenderness in the calves Skin: no gross lesions, rashes, induration Data Review: Labs and Imaging: CBC: Recent Labs 01/02/24 0154 01/02/24 0508 01/02/24 0953 01/03/24 0127 01/03/24 0600 01/03/24 1245 01/03/24 2142 01/04/24 0457 WBC 6.9 6.8 -- 8.4 7.3 -- -- 6.8 HGB 8.8* 8.4* < > 9.0* 8.6* 9.1* 9.3* 8.8* MCV 92.1 91.9 -- 92.9 93.8 -- -- 98.6 RDW 22.9* 23.0* -- 22.1* 21.8* -- -- 21.1* PLT 215 207 -- 219 220 -- -- 234 < > = values in this interval not displayed. ANEMIA STUDIES: No results for input(s): TIBC , FERRITIN , NEDWDVEI20 , FOLATE , OCCULTBLD in the last 72 hours. Invalid input(s): LABIRON BMP: Recent Labs 01/02/24 0508 01/03/24 0127 01/03/24 0600 01/04/24 0457 NA 141 -- 140 138 K 3.0* 3.1* 3.4* 3.1* CL 110* -- 106 104 CO2 22 -- 24 24 BUN 8 -- 3* 3* CREATININE 0.3* -- 0.3* 0.3* GLUCOSE 105* -- 95 97 CALCIUM 7.8* -- 8.2* 8.0* MG 1.9 -- 1.8 -- LFTS: Recent Labs 01/01/241932 ALKPHOS 124* ALT 13 AST 42* BILITOT 0.8 Amylase/Lipase and Ammonia: Recent Labs 01/01/241932 LIPASE 18 Acute Hepatitis Panel: No results found for: HEPBSAG , HEPCAB , HEPBIGM , HEPAIGM HCV Genotype: No components found for: HEPATITISCGENOTYPE HCV Quantitative: No results found for: HCVQNT LIVER WORK UP: AFP No results found for: AFP Alpha 1 antitrypsin No results found for: A1A ALVARO No results found for: ALVARO AMA No results found for: MITOAB ASMA No results found for: SMOOTHMUSCAB PT/INR Recent Labs 01/01/241912 PROTIME 12.3 INR 0.9 Cancer Markers: CEA: No results for input(s): CEA in the last 72 hours. Ca 125: No results for input(s): CA125 in the last 72 hours. Ca 19-9: Invalid input(s): CA19-9 AFP: No results for input(s): AFP in the last 72 hours. Lactic acid:Invalid input(s): LACTIC ACID Radiology Review: No results found. Principal Problem: GI bleed Active Problems: Hyponatremia Hypotension due to blood loss Acute blood loss anemia Hypokalemia Syncope Moderate aortic regurgitation History of Linsey-en-Y gastric bypass Acute gastrojejunal anastomotic ulcer Chronic prescription opiate use Other specified anxiety disorders Primary hypertension Cholelithiasis Gastrojejunal ulcer with hemorrhage Resolved Problems: * No resolved hospital problems. * GI Impression: Large GJ anastomotic ulcer with visible vessel s/p cautery, epinephrine and Hemospray Acute blood loss anemia-Hgb stable Diffuse abdominal pain History of Linsey-en-Y Plan and Recommendations: DC PPI drip. Start Protonix 40 mg IV twice daily then po at DC Diet per surgery Monitor H&H, transfuse as needed Daily labs Avoid NSAIDs, alcohol, smoking-discussed with patient at length who verbalized understanding If patient develops overt GI bleeding please consult surgical team Pt will need to follow up in the GI office with Dr. Harvey for possible repeat EGD in 4-6 weeks. Pt may need additional therapy/intervention. GI will sign off. This plan was formulated in collaboration with Dr. Dorothy MD Thank you for allowing me to participate in the care of your patient. Please feel free to contact me with any questions or concerns. Zhanna [facility] Gastroenterology Tl Salazar, CHEESE WEIGHER [facility] [phone] 01/04/2024 10:37 AM Estimated time of 20 mins reviewing chart, assessing patient and formulating plan of care This note was created with the assistance of a speech-recognition program. Although the intention is to generate a document that actually reflects the content of the visit, no guarantees can be provided that every mistake has been identified and corrected by editing. Associated attestation - Ricki De La Cruz MD - 01/04/2024 4:32 PM EDT Attending Attestation: I have discussed the care of Candy Booth and I have examined the patient myselft and taken ros and hpi , including pertinent history and exam findings, with the author of this note . I have reviewed the yadav elements of all parts of the encounter with the nurse practitioner/resident. I agree with the assessment, plan and orders as documented by the above health care provider with the following addendum Impression- Large gastrojejunal anastomotic ulcer with bleeding S/P endoscopic therapy Plan- Monitor H&H q daily and transfuse if Hb < 7 g/dl Continue on PPI, carafate Follow with Dr Harvey GI will sign off, please call with questions More than 50% of the time was spent taking care of this patient in addition to the nurse practitioner time. That also included history taking follow-up physical examination and review of system. Electronically signed by Ricki De La Cruz MD * Tuyet Fulton DO - 01/04/2024 8:14 AM EDT Images from the original note were not included. [facility] BARIATRICS SURGERY CONSULT NOTE PATIENT: Candy Booth : 1970 ADMISSION DATE: 12/30/2023 5:58 PM TODAY'S DATE: 01/04/24 LOS: 5 ATTENDING PHYSICIAN: Suzanne Celeste MD REASON FOR CONSULT: Abdominal pain, history of Linsey-en-Y gastric bypass, GI bleed HISTORY OF PRESENT ILLNESS: 53 years old female with history of AAA, CAD, atrial fibrillation not on anticoagulation, MVP, Linsey-en-Y gastric bypass in 2007 with multiple upper GI bleeding associated with NASID use, small bowel obstruction, appendectomy, hysterectomy presented hospital with abdominal pain. Patient was a transfer from [facility] 4 days ago after an acute dark black looking bleeding which was treated with PPI, has had few days of blood transfusion in the hospital before transfer. Per patient, she had multiple different PPI, she only can tolerate Dexlansoprazole, which she used this medication intermittently when she has flare of GI bleeding and abdominal pain. Patient does not remember who and what hospital performed at the surgery of gastric Linsey-en-Y bypass. GI team was consulted for the GI bleeding, EGD was attempted with finding of large gastrojejunal anastomosis ulcer with visible vesselswhich was treated with heater probe with formal coagulation, and epinephrine for hemostasis on top of Hemospray. After their procedure, patient complains of increasing abdominal pain, her hemoglobin trend down from 10.6 to 7.7, and she became hypotensive and tachycardia. She received total 2 unit of blood so far here at [facility]. Pt seen and examined this morning at bedside. She is sleeping comfortably. No acute events overnight. No complaints of pain. Patient is tolerating her CLD with no issues. Patient had one BM overnightwith no issues. No SOB, CP. Hg stable from 9.3 to 8.8. PAST MEDICAL HISTORY: Diagnosis Date AAA (abdominal aortic aneurysm) (HCC) Arthritis back, ankles CAD (coronary artery disease) aortic and pulmonic stenosis, mitral valve prolapse, enlarged aorta Chronic headache Complex regional pain syndrome Depression JESSICA (generalized anxiety disorder) History of blood transfusion 08/2017 and 09/2017 after GI bleed Left tibial fracture 2017 no surgical corrrection MVP (mitral valve prolapse) Neuropathy Obesity - status post gastric bypass Peptic ulcer disease 09/2017 PONV (postoperative nausea and vomiting) 2009 nausea and vomiting after a body lift Primary hypertension 01/01/2024 Small bowel obstruction - due to adhesions PAST SURGICAL HISTORY: Procedure Laterality Date APPENDECTOMY 1993 COLON SURGERY COLONOSCOPY 2018 COSMETIC SURGERY 2009 total body lift DILATATION, ESOPHAGUS ENDOSCOPY, COLON, DIAGNOSTIC 2018 ESOPHAGOGASTRODUODENOSCOPY EYE SURGERY 2001 lasik surgery FOOT SURGERY Had foot surgery with nerve injury leaving patient with chronic pain of foot GASTRIC BYPASS SURGERY HYSTERECTOMY (CERVIX STATUS UNKNOWN) 1993 IR EMBOLIZATION HEMORRHAGE 01/01/2024 IR EMBOLIZATION HEMORRHAGE 01/01/2024 Nasir Martinez MD [facility] SPECIAL PROCEDURES LAPAROSCOPY Small bowel obstruction due to adhesions RI COLONOSCOPY FLX DX W/COLLJ SPEC WHEN PFRMD N/A 10/20/2017 COLONOSCOPY performed by Juancarlos Maldonado MD at [facility] Endoscopy RI EGD TRANSORAL CONTROL BLEEDING ANY METHOD Left 10/19/2017 EGD CONTROL HEMORRHAGE performed by Juancarlos Maldonado MD at [facility] Endoscopy RI LAMNOTMY INCL W/DCMPRSN NRV ROOT 1 INTRSPC LUMBR N/A 02/09/2018 L4-5 DISKECTOMY LEFT performed by Ronal Matos MD at [facility] OR UPPER GASTROINTESTINAL ENDOSCOPY UPPER GASTROINTESTINAL ENDOSCOPY N/A 01/01/2024 ESOPHAGOGASTRODUODENOSCOPY CONTROL HEMORRHAGE performed by Jen Harvey MD at [facility] OR UPPER GASTROINTESTINAL ENDOSCOPY 01/01/2024 ESOPHAGOGASTRODUODENOSCOPY SCLEROTHERAPY performed by Jen Harvey MD at [facility] OR ALLERGIES: Nsaids, Milk (cow), Acetaminophen-codeine, and Codeine SOCIAL HISTORY Social History Tobacco Use Smoking status: Every Day Current packs/day: 1.00 Average packs/day: 1 pack/day for 9.6 years (9.6 ttl pk-yrs) Types: Cigarettes Start date: 2014 Smokeless tobacco: Never Tobacco comments: started at age 13 for 4 yrs, quit then started back in 2014 Vaping Use Vaping status: Never Used Substance Use Topics Alcohol use: No FAMILY HISTORY: Problem Relation Age of Onset Cancer Mother renal, right kidney removed Other Mother thyroidectomy, neck fusion Heart Disease Father 55 Arthritis Father Coronary Art Dis Father Cancer Father lung Other Sister thryoidectomy, Arthritis Sister cervical fusion No Known Problems Brother Other Daughter mitral valve prolapse, low albumin MEDICATIONS PRIOR TO ADMISSION: Medications Prior to Admission: carisoprodol (SOMA) 350 MG tablet, Take 350 mg by mouth 4 times daily as needed for Muscle spasms.. (Patient not taking: Reported on 12/30/2023) eletriptan (RELPAX) 40 MG tablet, Take 1 tablet by mouth once as needed may repeat in 2 hours if necessary pantoprazole (PROTONIX) 40 MG tablet, Take 1 tablet by mouth every morning (before breakfast) (Patient not taking: Reported on 12/30/2023) ferrous sulfate 325 (65 Fe) MG EC tablet, Take 1 tablet by mouth 2 times daily (with meals) (Patient not taking: Reported on 12/30/2023) pregabalin (LYRICA) 100 MG capsule, Take 2 capsules by mouth three times daily. oxyCODONE (OXY-IR) 15 MG immediate release tablet, Take 2 tablets by mouth every 4 hours as needed for Pain. ALPRAZolam (XANAX) 0.5 MG tablet, Take 1 tablet by mouth every 4 hours as needed for Anxiety. sertraline (ZOLOFT) 100 MG tablet, Take 2 tablets by mouth at bedtime Cholecalciferol (VITAMIN D3) 90728 units CAPS, Take by mouth Twice a Week carvedilol (COREG) 3.125 MG tablet, Take 3.125 mg by mouth 2 times daily (Patient not taking: Reported on 12/30/2023) REVIEW OF SYSTEMS: Constitutional: Denies weight loss, fever and chills Head: Denies headache and head trauma EENT: Denies changes in vision and hearing, Denies rhinorrhea and epistaxis Mouth/Throat: Denies sore throat and hoarseness. Neck: Denies cervicalgia or neck swelling CV: Denies palpitations and CP Resp: Denies SOB and cough GI: Denies any abd pain, nausea, vomiting. : Denies dysuria and urinary frequency MSK: Denies myalgia and joint pain Neuro: Denies syncope and weakness. Skin: Denies rash and pruritus Psych: Denies recent changes in mood. Denies anxiety and depression PHYSICAL EXAM: VITALS Temp Av F (36.7 C) Min: 97.5 F (36.4 C) Max: 98.4 F (36.9 C) Systolic (24hrs), Av , Min:94 , Max:172 Diastolic (24hrs), Av, Min:66, Max:101 Pulse Av.5 Min: 92 Max: 111 Resp Av Min: 15 Max: 24 SpO2: 94 % SpO2 Av.4 % Min: 90 % Max: 97 % General: No acute distress. A&Ox3. Head: NC/AT. EENT: Conjunctiva moist without icterus. Ears are symmetric. Normal auditory acuity. Nares are patent. No rhinorrhea. Mouth/Throat: Oral mucus membranes are moist. Neck: Supple. No LAD. Cardiovascular: Regular rate and rhythm. Warm, well perfused. Respiratory: Equal chest rise bilaterally. No wheezes, stridor, or increased work of breathing. Abdomen: No tenderness to palpation, soft, mildly distended. Neuro: Motor and sensory grossly intact. Extremities: Warm, dry, and well perfused. Limbs without apparent deformity. Skin: No rashes or lesions. Psych: Normal mood and appropriate affect LABS: Recent Labs 01/03/24 0127 01/03/24 0600 01/03/24 1245 01/03/24 2142 01/04/24 0457 WBC 8.4 7.3 -- -- 6.8 HGB 9.0* 8.6* 9.1* 9.3* 8.8* PLT 219 220 -- -- 234 Recent Labs 01/02/24 0508 01/03/24 0127 01/03/24 0600 01/04/24 0457 NA 141 -- 140 138 K 3.0* 3.1* 3.4* 3.1* CL 110* -- 106 104 CO2 -- BUN 8 -- 3* 3* CREATININE 0.3* -- 0.3* 0.3* GLUCOSE 105* -- 95 97 Recent Labs 01/01/24 1933 AST 42* ALT 13 ALKPHOS 124* BILITOT 0.8 Recent Labs 01/01/24 1913 APTT 24.6 INR 0.9 IMAGING: No results found. ASSESSMENT Patient Active Problem List Diagnosis Hypovolemic shock (HCC) Acute upper GI bleed Lactic acidosis Hyponatremia Orthostatic hypotension Hypotension due to blood loss AAA (abdominal aortic aneurysm) (HCC) Complex regional pain syndrome Peptic ulcer disease Acute blood loss anemia GI bleed MVP (mitral valve prolapse) Iron deficiency Troponin level elevated Hypocalcemia Hypokalemia Hypoalbuminemia due to protein-calorie malnutrition (HCC) Gastric ulcer without hemorrhage or perforation HNP (herniated nucleus pulposus), lumbar Syncope Moderate aortic regurgitation History of Linsey-en-Y gastric bypass Acute gastrojejunal anastomotic ulcer Chronic prescription opiate use Other specified anxiety disorders Primary hypertension Cholelithiasis Gastrojejunal ulcer with hemorrhage 53 years old female with history of Linsey-en-Y gastric bypass in 2007 with multiple episodes of upper GI bleeding, current smoker, not on NSAID, present hospital with upper GI bleeding. Underwent EGD,trend H&H, evaluation surgery was consulted for possible surgical evaluation PLAN -Trend H and H -Clears -PPI -Carafate -No acute surgical intervention is indicated at this point of time. Bariatric surgery will closely follow patient -Discussed with nursing staff -Nicotine Cessation -Avoid NSAID's Associated attestation - Margaret Sullivan DO - 01/04/2024 3:17 PM EDT I have discussed the care of the patient, including pertinent history and exam findings, with the resident. I have seen and examined the patient and the yadav elements of all parts of the encounter have been performed by me. I agree with the assessment, plan and orders as documented by the resident. Advance diet Outpatient follow up * Christopher Morataya MD - 01/04/2024 7:12 AM EDT INTENSIVE CARE UNIT Resident Physician Progress Note Patient - Candy Booth Date of Admission - 12/30/2023 5:58 PM Date of Evaluation - 01/04/2024 Room and Bed Number - 3024/3024-01 Hospital Day - 5 No chief complaint on file. Cc gi bleed SUBJECTIVE: OVERNIGHT EVENTS: -Saturation dropped to 89% during sleep so started on 2 L oxygen via nasal canula -Bloody smear TODAY: My Evaluation: -afebrile, hemodynamically stable, saturating well on 2 L oxygen via nasal canula Sedation: None Vasopressors: None I's/O's: In: 3794.6 [P.O.:150; I.V.:3644.6] Out: 3375 [Urine:3375] Net IO Since Admission: -2,925.94 mL [01/04/24 0715] 1.6 cc/kg/hr in last 24hrs Consults: Bariatrics BRIEF PLAN: 1)H&H 8 hourly. 2)Continue Carafate 3)As per GI recommendations DC PPI drip. Start Protonix 40 mg IV twice daily then po at DC 4)Avoid NSAIDs, alcohol, smoking 5)clear liquid diet 6)Add Norvasc because of increase diastolic pressure HISTORY OF PRESENT ILLNESS: 53 years old female with history of AAA, CAD, atrial fibrillation not on anticoagulation, MVP, Linsey-en-Y gastric bypass in 2007 with multiple upper GI bleeding associated with NASID use, small bowel obstruction, appendectomy, hysterectomy presented hospital with abdominal pain. Patient was a transfer from [facility] 4 days ago after an acute dark black looking bleeding which was treated with PPI, has had few days of blood transfusion in the hospital before transfer. Per patient, she had multiple different PPI, she only can tolerate Dexlansoprazole, which she used this medication intermittently when she has flare of GI bleeding and abdominal pain. Patient does not remember who and what hospital performed at the surgery of gastric Linsey-en-Y bypass. GI team was consulted for the GI bleeding, EGD was attempted with finding of large gastrojejunal anastomosis ulcer with visible vesselswhich was treated with heater probe with formal coagulation, and epinephrine for hemostasis on top of Hemospray. After their procedure, patient complains of increasing abdominal pain, her hemoglobin trend down from 10.6 to 7.7, and she became hypotensive and tachycardia. She received total 2 unit of blood so far here at [facility]. OBJECTIVE: VITAL SIGNS: Patient Vitals for the past 8 hrs: BP Temp Temp src Pulse Resp SpO2 Weight 01/04/24 0600 132/79 -- -- (!) 104 23 94 % 86.9 kg (191 lb 9.3 oz) 01/04/24 0500 122/77 -- -- (!) 109 17 90 % -- 01/04/24 0430 118/77 -- -- (!) 111 21 91 % -- 01/04/24 0400 (!) 147/101 97.9 F (36.6 C) Oral 100 19 92 % -- 01/04/24 0300 (!) 160/96 -- -- 100 22 91 % -- 01/04/24 0200 (!) 159/94 -- -- 96 16 93 % -- 01/04/24 0100 (!) 167/86 -- -- 98 21 90 % -- 01/04/24 0000 135/86 97.7 F (36.5 C) Axillary 94 17 93 % -- Last Body weight: Wt Readings from Last 3 Encounters: 01/04/24 86.9 kg (191 lb 9.3 oz) 03/24/20 90.7 kg (200 lb) 01/19/19 83.5 kg (184 lb) Body Mass Index : Body mass index is 30 kg/m . Tmax over 24 hours: Temp (24hrs), Av.1 F (36.7 C), Min:97.5 F (36.4 C), Max:98.6 F (37 C) Ins/Outs: In: 3794.6 [P.O.:150; I.V.:3644.6] Out: 3375 [Urine:3375] PHYSICAL EXAM: Constitutional: Awake and alert, well developed and well nourished, in no acute distress EENT: PERRLA, EOMI, sclera clear, anicteric, oropharynx clear, no lesions, Neck: Supple, symmetrical, trachea midline, no adenopathy, thyroid symmetric, no jvd Respiratory: clear to auscultation, no wheezes, rales, or rhonchi Cardiovascular: regular rate and rhythm, normal S1, S2, no murmur noted and 2+ pulses throughout Abdomen: soft, nontender, nondistended, no masses or organomegaly Extremities: peripheral pulses normal, no pedal edema, no clubbing or cyanosis MEDICATIONS: Scheduled Meds: sucralfate 1 g Oral 3 times per day pantoprazole 80 mg IntraVENous Once cyanocobalamin 1,000 mcg IntraMUSCular Once carvedilol 6.25 mg Oral BID WC sodium chloride flush 5-40 mL IntraVENous 2 times per day pregabalin 200 mg Oral TID RT sertraline 200 mg Oral Nightly Continuous Infusions: pantoprazole 8 mg/hr (01/04/24 0604) sodium chloride sodium chloride sodium chloride 50 mL/hr at 01/04/24 0604 sodium chloride PRN Meds: ondansetron, 4 mg, Q6H PRN labetalol, 10 mg, Q6H PRN potassium chloride, 40 mEq, PRN Or potassium alternative oral replacement, 40 mEq, PRN Or potassium chloride, 10 mEq, PRN sodium chloride, , PRN sodium chloride, , PRN ipratropium 0.5 mg-albuterol 2.5 mg, 1 Dose, Q4H PRN guaiFENesin, 600 mg, BID PRN benzonatate, 200 mg, TID PRN sodium chloride flush, 5-40 mL, PRN sodium chloride, , PRN acetaminophen, 650 mg, Q6H PRN Or acetaminophen, 650 mg, Q6H PRN ALPRAZolam, 0.5 mg, 4x Daily PRN oxyCODONE, 15 mg, Q4H PRN Or oxyCODONE, 20 mg, Q4H PRN HYDROmorphone, 0.5 mg, Q3H PRN hydrALAZINE, 20 mg, Q4H PRN SUPPORT DEVICES: [] Ventilator [] BIPAP [x] Nasal Cannula [] Room Air VENT SETTINGS (Comprehensive) (if applicable): Additional Respiratory Assessments Pulse: (!) 104 Respirations: 23 SpO2: 94 % No results found for: IFIO2 , MODE , SETTIDVOL , SETPEEP ABGs: No results for input(s): POCPH , POCPCO2 , POCPO2 , POCHCO3 in the last 72 hours. DATA: Complete Blood Count: Recent Labs 01/03/24 0127 01/03/24 0600 01/03/24 1245 01/03/24 2142 01/04/24 0457 WBC 8.4 7.3 -- -- 6.8 RBC 2.82* 2.72* -- -- 2.81* HGB 9.0* 8.6* 9.1* 9.3* 8.8* HCT 26.2* 25.5* 27.3* 28.3* 27.7* MCV 92.9 93.8 -- -- 98.6 MCH 31.9 31.6 -- -- 31.3 MCHC 34.4 33.7 -- -- 31.8 RDW 22.1* 21.8* -- -- 21.1* PLT 219 220 -- -- 234 MPV 9.6 9.7 -- -- 9.4 Last 3 Blood Glucose: Recent Labs 01/01/24 1933 01/02/24 0508 01/03/24 0600 01/04/24 0457 GLUCOSE 104* 105* 95 97 PT/INR: Lab Results Component Value Date/Time PROTIME 12.3 01/01/2024 07:13 PM INR 0.9 01/01/2024 07:13 PM PTT: Lab Results Component Value Date/Time APTT 24.6 01/01/2024 07:13 PM APTT 26.6 02/06/2018 08:24 AM Basic Metabolic Profile: Recent Labs 01/02/2450701/03/24 0127 01/03/2459901/04/24 0457 NA 141 -- 140 138 K 3.0* 3.1* 3.4* 3.1* CL 110* -- 106 104 CO2 -- BUN 8 -- 3* 3* CREATININE 0.3* -- 0.3* 0.3* GLUCOSE 105* -- 95 97 MG 1.9 -- 1.8 -- Liver Function: Recent Labs 01/01/241932 ALT 13 AST 42* ALKPHOS 124* BILITOT 0.8 Magnesium: Lab Results Component Value Date/Time MG 1.8 01/03/2024 06:00 AM MG 1.9 01/02/2024 05:08 AM MG 2.0 01/01/2024 04:11 AM Phosphorus: Lab Results Component Value Date/Time PHOS 3.7 12/31/2023 12:46 AM Ionized Calcium: Lab Results Component Value Date/Time CAION 1.13 01/01/2024 07:10 PM CAION 1.23 12/31/2023 12:46 AM CAION 1.22 10/20/2017 04:01 AM Urinalysis: Lab Results Component Value Date/Time NITRU NEGATIVE 12/31/2023 12:32 AM COLORU Yellow 12/31/2023 12:32 AM PHUR 5.5 12/31/2023 12:32 AM PHUR 6.0 02/06/2018 08:24 AM CLARITYU Clear 02/06/2018 08:24 AM LEUKOCYTESUR NEGATIVE 12/31/2023 12:32 AM UROBILINOGEN Normal 12/31/2023 12:32 AM BILIRUBINUR NEGATIVE 12/31/2023 12:32 AM BLOODU Negative 02/06/2018 08:24 AM GLUCOSEU NEGATIVE 12/31/2023 12:32 AM KETUA NEGATIVE 12/31/2023 12:32 AM HgBA1c: No results found for: LABA1C TSH: Lab Results Component Value Date/Time TSH 6.81 12/31/2023 12:46 AM Lactic Acid: No results found for: LACTA Troponin: No results for input(s): TROPONINI in the last 72 hours. Microbiology: None Radiology/Imaging: IR EMBOLIZATION HEMORRHAGE Final Result 1. No active contrast extravasation, pseudoaneurysm or other definite focal branch abnormality or treatable lesion demonstrated from the left gastric artery at this time. Postsurgical changes, as above. 2. Right groin femoral artery sheath left in place. 3. If there is continued clinical concern for active GI bleed, consider repeat angiography or nuclear medicine GI bleeding scan. CTA ABDOMEN PELVIS W WO CONTRAST Final Result 1. No active contrast extravasation or pseudoaneurysm. [...] L5-S1, L1-L2, and on either side T11. ASSESSMENT: Patient Active Problem List Diagnosis Date Noted Moderate aortic regurgitation 01/01/2024 History of Linsey-en-Y gastric bypass 01/01/2024 Acute gastrojejunal anastomotic ulcer 01/01/2024 Chronic prescription opiate use 01/01/2024 Other specified anxiety disorders 01/01/2024 Primary hypertension 01/01/2024 Cholelithiasis 01/01/2024 Gastrojejunal ulcer with hemorrhage 01/01/2024 Syncope 12/31/2023 HNP (herniated nucleus pulposus), lumbar 02/06/2018 Acute blood loss anemia 10/19/2017 GI bleed 10/19/2017 Iron deficiency 10/19/2017 Troponin level elevated 10/19/2017 Hypocalcemia 10/19/2017 Hypokalemia 10/19/2017 Hypoalbuminemia due to protein-calorie malnutrition (HCC) 10/19/2017 MVP (mitral valve prolapse) Gastric ulcer without hemorrhage or perforation Hypovolemic shock (HCC) 10/18/2017 Acute upper GI bleed 10/18/2017 Lactic acidosis 10/18/2017 Hyponatremia 10/18/2017 Orthostatic hypotension 10/18/2017 Hypotension due to blood loss 10/18/2017 AAA (abdominal aortic aneurysm) ([facility]) Complex regional pain syndrome Peptic ulcer disease 09/23/2017 PLAN: WEAN PER PROTOCOL: [] No [] Yes [x] N/A ICU PROPHYLAXIS: Stress ulcer: [x] PPI Agent [] [id number] [] Sucralfate [] Other [] None VTE: [] Enoxaparin [] SQ Heparin [x] EPC Cuffs [] Other NUTRITION: [] NPO [] TF: [] TPN [x] PO HOME MEDS RECONCILED: [] No [x] Yes CONSULTATION NEEDED: [] No [x] Yes FAMILY UPDATED: [] No [x] Yes TRANSFER OUT OF ICU: [] No [] Yes PLAN/MEDICAL DECISION MAKING: Neurologic: - Dx: Normal neurologic function - Mental status: Alert and oriented - Pain control: As needed with oxycodone and hydromorphone Cardiovascular: Hemodynamically stable Hypertensive on coreg 6.25 mg , add Norvasc - EKG: Unremarkable - Echo: Increased wall thickness, dilated aortic root, EF 55 to 60% - Goal SBP maps above 65 Pulmonary: Maintain oxygen sats >92% Pulmonary toilet Current Pulse Ox: SpO2: 92 % GI/Nutrition Continue sucralfate Continue Protonix(last day) Diet: ADULT DIET; Clear Liquid Last BM: Today, blood tinged Renal/Fluid/Electrolyte IV Fluids: 0.9NS @ 50 mL/Hr I/O: In: 3794.6 [P.O.:150; I.V.:3644.6] Out: 3375 [Urine:3375] UOP: 1.6 cc/kg/hr overnight BUN/Cr:3/0.3 Monitor electrolytes, replace PRN ID WBC: Lab Results Component Value Date WBC 6.8 01/04/2024 Tmax: Temp (24hrs), Av.1 F (36.7 C), Min:97.5 F (36.4 C), Max:98.6 F (37 C) Antimicrobials: not indicated Hematology: Recent Labs 01/03/24 1245 01/03/24 2142 01/04/24 0457 HGB 9.1* 9.3* 8.8* trending down Endocrine: glucose controlled - most recent BGL is Recent Labs 01/02/24 0508 01/03/24 0600 01/04/24 0457 GLUCOSE 105* 95 97 DVT Prophylaxis SCD sleeves -thigh high Discharge Needs: PT, OT, ST, SW, and Case Management CODE STATUS: Full Code DISPOSITION: [] To remain ICU: [x] OK for out of ICU from Critical Care standpoint Livia Manzo MD Critical Care, PGY-1 [facility] 01/04/24 7:15 AM Attending Physician Statement I have discussed the care of Candy Booth, including pertinent history and exam findings, with the resident. I have seen and examined the patient and the yadav elements of all parts of the encounter have been performed by me. I agree with the assessment, plan and orders as documented by the resident with additions . Total critical care time caring for this patient with life threatening, unstable organ failure, including direct patient contact, management of life support systems, review of data including imaging and labs, discussions with other team members and physicians at least 30 Min so far today, excludingprocedures. Please note that this chart was generated using voice recognition [employer] dictation software. Although every effort was made to ensure the accuracy of this automated molder pipe covering, some errors in molder pipe covering may have occurred. * Tl Salazar APRN - DRILLING ASSISTANT - 01/03/2024 11:49 AM EDT [facility] Progress Note Candy Booth is a 53 y.o. female patient. Hospitalization Day:4 Chief consult reason: GI bleed Subjective: Patient seen and examined, no acute events overnight Patient denies any rectal bleeding or hematemesis No abdominal pain Hemoglobin stable 9.0 to 8.6 g/dL VITALS: BP (!) 172/98 Pulse (!) 102 Temp 98.6 F (37 C) (Oral) Resp 16 Ht 1.702 m (5' 7.01 ) Wt 86 kg (189 lb 9.5 oz) SpO2 94% BMI 29.69 kg/m TEMPERATURE: Current - Temp: 98.6 F (37 C); Max - Temp Av.6 F (37 C) Min: 98.2 F (36.8 C) Max:99.1 F (37.3 C) Physical Assessment: General appearance: alert, cooperative and no distress Mental Status: oriented to person, place and time and normal affect Lungs: clear to auscultation bilaterally, normal effort Heart: regular rate and rhythm, no murmur Abdomen: soft, nontender, nondistended, normal bowel sounds, no masses, hepatomegaly, splenomegaly Extremities: no edema, redness, tenderness in the calves Skin: no gross lesions, rashes, induration Data Review: Labs and Imaging: CBC: Recent Labs 01/01/24 1910 01/02/24 0154 01/02/24 0508 01/02/24 0953 01/02/24 1312 01/02/24 1953 01/03/24 0127 01/03/24 0600 WBC 6.5 6.9 6.8 -- -- -- 8.4 7.3 HGB 10.2* 8.8* 8.4* 8.6* 8.5* 9.1* 9.0* 8.6* MCV 92.6 92.1 91.9 -- -- -- 92.9 93.8 RDW 22.1* 22.9* 23.0* -- -- -- 22.1* 21.8* PLT 222 215 207 -- -- -- 219 220 ANEMIA STUDIES: No results for input(s): TIBC , FERRITIN , [id number] , FOLATE , OCCULTBLD in the last 72 hours. Invalid input(s): LABIRON BMP: Recent Labs 01/01/24 04101/01/24 19301/02/24 0508 01/03/24 0127 01/03/24 0600 NA 139 137 141 -- 140 K 3.3* 3.9 3.0* 3.1* 3.4* CL 107 106 110* -- 106 CO2 23 19* 22 -- 24 BUN <1* 8 8 -- 3* CREATININE 0.3* 0.3* 0.3* -- 0.3* GLUCOSE 86 104* 105* -- 95 CALCIUM 8.5* 7.8* 7.8* -- 8.2* MG 2.0 -- 1.9 -- 1.8 LFTS: Recent Labs 01/01/2441001/01/241932 ALKPHOS 161* 124* ALT 10 13 AST 40* 42* BILITOT 0.3 0.8 BILIDIR <0.2 -- Amylase/Lipase and Ammonia: Recent Labs 01/01/241932 LIPASE 18 Acute Hepatitis Panel: No results found for: HEPBSAG , HEPCAB , HEPBIGM , HEPAIGM HCV Genotype: No components found for: HEPATITISCGENOTYPE HCV Quantitative: No results found for: HCVQNT LIVER WORK UP: AFP No results found for: AFP Alpha 1 antitrypsin No results found for: A1A ALVARO No results found for: ALVARO AMA No results found for: MITOAB ASMA No results found for: SMOOTHMUSCAB PT/INR Recent Labs 01/01/241912 PROTIME 12.3 INR 0.9 Cancer Markers: CEA: No results for input(s): CEA in the last 72 hours. Ca 125: No results for input(s): CA125 in the last 72 hours. Ca 19-9: Invalid input(s): CA19-9 AFP: No results for input(s): AFP in the last 72 hours. Lactic acid:Invalid input(s): LACTIC ACID Radiology Review: No results found. Principal Problem: GI bleed Active Problems: Hyponatremia Hypotension due to blood loss Acute blood loss anemia Hypokalemia Syncope Moderate aortic regurgitation History of Linsey-en-Y gastric bypass Acute gastrojejunal anastomotic ulcer Chronic prescription opiate use Other specified anxiety disorders Primary hypertension Cholelithiasis Gastrojejunal ulcer with hemorrhage Resolved Problems: * No resolved hospital problems. * GI Impression: Large GJ anastomotic ulcer with visible vessel s/p cautery, epinephrine and Hemospray Acute blood loss anemia-Hgb stable Diffuse abdominal pain History of Linsey-en-Y Plan and Recommendations: Continue PPI drip Okay for clear liquid diet from GI perspective Monitor H&H, transfuse as needed Daily labs Avoid NSAIDs, alcohol, smoking-discussed with patient at length who verbalized understanding If patient develops overt GI bleeding please consult surgical team Will follow This plan was formulated in collaboration with Dr. Dorothy MD Thank you for allowing me to participate in the care of your patient. Please feel free to contact me with any questions or concerns. [facility] Tl Salazar, [facility] - [facility] [phone] 01/03/2024 11:49 AM Estimated time of 20 mins reviewing chart, assessing patient and formulating plan of care This note was created with the assistance of a speech-recognition program. Although the intention is to generate a document that actually reflects the content of the visit, no guarantees can be provided that every mistake has been identified and corrected by editing. Associated attestation - Ricki De La Cruz MD - 01/03/2024 7:51 PM EDT Attending Attestation: I have discussed the care of Candy Booth and I have examined the patient myselft and taken ros and hpi , including pertinent history and exam findings, with the author of this note . I have reviewed the yadav elements of all parts of the encounter with the nurse practitioner/resident. I agree with the assessment, plan and orders as documented by the above health care provider with the following addendum Impression- Large gastrojejunal anastomotic ulcer with bleeding S/P endoscopic therapy Plan- Monitor H&H q daily and transfuse if Hb < 7 g/dl Continue on PPI, carafate Likely X-tack stitch for the ulcer treatment after discharge More than 50% of the time was spent taking care of this patient in addition to the nurse practitioner time. That also included history taking follow-up physical examination and review of system. Electronically signed by Ricki De La Cruz MD * Christopher Morataya MD - 01/03/2024 11:41 AM EDT INTENSIVE CARE UNIT Resident Physician Progress Note Patient - Candy Booth Date of Admission - 12/30/2023 5:58 PM Date of Evaluation - 01/03/2024 Room and Bed Number - 3024/3024-01 Hospital Day - 4 No chief complaint on file. Cc gi bleed SUBJECTIVE: OVERNIGHT EVENTS: -Patient had single episode of blood streaked bowel movement.She remained hypertensive and had a run of tachycardia according to telemetry strip. TODAY: My Evaluation: -afebrile, hemodynamically stable, saturating well Blood pressure was 160/85 and heart rate of 105 bpm Sedation: None Vasopressors: None Arterial Blood Gas result: No results for input(s): POCPH , POCPCO2 , POCPO2 , POCHCO3 in the last 72 hours. I's/O's: In: 2208.8 [I.V.:2208.8] Out: 6010 [Urine:6010] Net IO Since Admission: -1,536.7 mL [01/03/24 1141] 2.7 cc/kg/hr in last 24hrs Consults: Bariatrics BRIEF PLAN: 1)Switch labetalol to PRN and add tablet coreg to 6.25 2)Reduce fluid to N/S 0.9% to 50 ml/hour 3)pull out the sheath 4)H& if stable then 8 hourly 5)Protonix for 72 hours 6)No more Zyprexa HISTORY OF PRESENT ILLNESS: 53 years old female with history of AAA, CAD, atrial fibrillation not on anticoagulation, MVP, Linsey-en-Y gastric bypass in 2007 with multiple upper GI bleeding associated with NASID use, small bowel obstruction, appendectomy, hysterectomy presented hospital with abdominal pain. Patient was a transfer from [facility] 4 days ago after an acute dark black looking bleeding which was treated with PPI, has had few days of blood transfusion in the hospital before transfer. Per patient, she had multiple different PPI, she only can tolerate Dexlansoprazole, which she used this medication intermittently when she has flare of GI bleeding and abdominal pain. Patient does not remember who and what hospital performed at the surgery of gastric Linsey-en-Y bypass. GI team was consulted for the GI bleeding, EGD was attempted with finding of large gastrojejunal anastomosis ulcer with visible vesselswhich was treated with heater probe with formal coagulation, and epinephrine for hemostasis on top of Hemospray. After their procedure, patient complains of increasing abdominal pain, her hemoglobin trend down from 10.6 to 7.7, and she became hypotensive and tachycardia. She received total 2 unit of blood so far here at [facility]. OBJECTIVE: VITAL SIGNS: Patient Vitals for the past 8 hrs: BP Temp Temp src Pulse Resp SpO2 01/03/24 1132 (!) 172/98 -- -- -- -- -- 01/03/24 1100 (!) 155/98 -- -- (!) 102 16 94 % 01/03/24 1000 (!) 150/95 -- -- 99 17 94 % 01/03/24 0900 -- -- -- 95 15 94 % 01/03/24 0855 (!) 147/92 -- -- 95 21 95 % 01/03/24 0800 (!) 156/85 98.6 F (37 C) Oral (!) 107 19 95 % 01/03/24 0700 -- -- -- (!) 105 15 94 % 01/03/24 0630 -- -- -- (!) 103 22 -- 01/03/24 0600 -- -- -- (!) 108 24 94 % 01/03/24 0530 -- -- -- 100 19 -- 01/03/24 0500 -- -- -- 99 16 93 % 01/03/24 0430 -- -- -- 99 14 -- 01/03/24 0400 -- -- -- 84 18 93 % 01/03/24 0345 (!) 146/88 99.1 F (37.3 C) Oral 100 15 94 % Last Body weight: Wt Readings from Last 3 Encounters: 01/01/24 86 kg (189 lb 9.5 oz) 03/24/20 90.7 kg (200 lb) 01/19/19 83.5 kg (184 lb) Body Mass Index : Body mass index is 29.69 kg/m . Tmax over 24 hours: Temp (24hrs), Av.6 F (37 C), Min:98.2 F (36.8 C), Max:99.1 F (37.3 C) Ins/Outs: In: 2208.8 [I.V.:8.8] Out: 6010 [Urine:6010] PHYSICAL EXAM: Constitutional: Awake and alert, well developed and well nourished, in no acute distress EENT: PERRLA, EOMI, sclera clear, anicteric, oropharynx clear, no lesions, Neck: Supple, symmetrical, trachea midline, no adenopathy, thyroid symmetric, no jvd Respiratory: clear to auscultation, no wheezes, rales, or rhonchi Cardiovascular: regular rate and rhythm, normal S1, S2, no murmur noted and 2+ pulses throughout Abdomen: soft, nontender, nondistended, no masses or organomegaly Extremities: peripheral pulses normal, no pedal edema, no clubbing or cyanosis MEDICATIONS: Scheduled Meds: sucralfate 1 g Oral 3 times per day labetalol 10 mg IntraVENous Q6H pantoprazole 80 mg IntraVENous Once cyanocobalamin 1,000 mcg IntraMUSCular Once carvedilol 6.25 mg Oral BID WC sodium chloride flush 5-40 mL IntraVENous 2 times per day pregabalin 200 mg Oral TID RT sertraline 200 mg Oral Nightly Continuous Infusions: pantoprazole 8 mg/hr (01/03/24730) sodium chloride norepinephrine sodium chloride sodium chloride 75 mL/hr at 01/03/24730 sodium chloride PRN Meds: potassium chloride, 40 mEq, PRN Or potassium alternative oral replacement, 40 mEq, PRN Or potassium chloride, 10 mEq, PRN sodium chloride, , PRN sodium chloride, , PRN ipratropium 0.5 mg-albuterol 2.5 mg, 1 Dose, Q4H PRN guaiFENesin, 600 mg, BID PRN benzonatate, 200 mg, TID PRN sodium chloride flush, 5-40 mL, PRN sodium chloride, , PRN acetaminophen, 650 mg, Q6H PRN Or acetaminophen, 650 mg, Q6H PRN ALPRAZolam, 0.5 mg, 4x Daily PRN oxyCODONE, 15 mg, Q4H PRN Or oxyCODONE, 20 mg, Q4H PRN HYDROmorphone, 0.5 mg, Q3H PRN hydrALAZINE, 20 mg, Q4H PRN SUPPORT DEVICES: [] Ventilator [] BIPAP [] Nasal Cannula [x] Room Air VENT SETTINGS (Comprehensive) (if applicable): Additional Respiratory Assessments Pulse: (!) 102 Respirations: 16 SpO2: 94 % No results found for: IFIO2 , MODE , SETTIDVOL , SETPEEP ABGs: No results for input(s): POCPH , POCPCO2 , POCPO2 , POCHCO3 in the last 72 hours. DATA: Complete Blood Count: Recent Labs 01/02/2450701/02/24 0953 01/02/24195201/03/2412601/03/24 0600 WBC 6.8 -- -- 8.4 7.3 RBC 2.70* -- -- 2.82* 2.72* HGB 8.4* < > 9.1* 9.0* 8.6* HCT 24.8* < > 26.3* 26.2* 25.5* MCV 91.9 -- -- 92.9 93.8 MCH 31.1 -- -- 31.9 31.6 MCHC 33.9 -- -- 34.4 33.7 RDW 23.0* -- -- 22.1* 21.8* PLT 207 -- -- 219 220 MPV 9.3 -- -- 9.6 9.7 < > = values in this interval not displayed. Last 3 Blood Glucose: Recent Labs 01/01/2441001/01/24193201/02/2450701/03/24 0600 GLUCOSE 86 104* 105* 95 PT/INR: Lab Results Component Value Date/Time PROTIME 12.3 01/01/2024 07:13 PM INR 0.9 01/01/2024 07:13 PM PTT: Lab Results Component Value Date/Time APTT 24.6 01/01/2024 07:13 PM APTT 26.6 02/06/2018 08:24 AM Basic Metabolic Profile: Recent Labs 01/01/2441001/01/24193201/02/2450701/03/2412601/03/24 0600 NA 139 137 141 -- 140 K 3.3* 3.9 3.0* 3.1* 3.4* CL 107 106 110* -- 106 CO2 23 19* 22 -- 24 BUN <1* 8 8 -- 3* CREATININE 0.3* 0.3* 0.3* -- 0.3* GLUCOSE 86 104* 105* -- 95 MG 2.0 -- 1.9 -- 1.8 Liver Function: Recent Labs 01/01/24 1933 ALT 13 AST 42* ALKPHOS 124* BILITOT 0.8 Magnesium: Lab Results Component Value Date/Time MG 1.8 01/03/2024 06:00 AM MG 1.9 01/02/2024 05:08 AM MG 2.0 01/01/2024 04:11 AM Phosphorus: Lab Results Component Value Date/Time PHOS 3.7 12/31/2023 12:46 AM Ionized Calcium: Lab Results Component Value Date/Time CAION 1.13 01/01/2024 07:10 PM CAION 1.23 12/31/2023 12:46 AM CAION 1.22 10/20/2017 04:01 AM Urinalysis: Lab Results Component Value Date/Time NITRU NEGATIVE 12/31/2023 12:32 AM COLORU Yellow 12/31/2023 12:32 AM PHUR 5.5 12/31/2023 12:32 AM PHUR 6.0 02/06/2018 08:24 AM CLARITYU Clear 02/06/2018 08:24 AM LEUKOCYTESUR NEGATIVE 12/31/2023 12:32 AM UROBILINOGEN Normal 12/31/2023 12:32 AM BILIRUBINUR NEGATIVE 12/31/2023 12:32 AM BLOODU Negative 02/06/2018 08:24 AM GLUCOSEU NEGATIVE 12/31/2023 12:32 AM KETUA NEGATIVE 12/31/2023 12:32 AM HgBA1c: No results found for: LABA1C TSH: Lab Results Component Value Date/Time TSH 6.81 12/31/2023 12:46 AM Lactic Acid: No results found for: LACTA Troponin: No results for input(s): TROPONINI in the last 72 hours. Microbiology: None Radiology/Imaging: IR EMBOLIZATION HEMORRHAGE Final Result 1. No active contrast extravasation, pseudoaneurysm or other definite focal branch abnormality or treatable lesion demonstrated from the left gastric artery at this time. Postsurgical changes, as above. 2. Right groin femoral artery sheath left in place. 3. If there is continued clinical concern for active GI bleed, consider repeat angiography or nuclear medicine GI bleeding scan. CTA ABDOMEN PELVIS W WO CONTRAST Final Result 1. No active contrast extravasation or pseudoaneurysm. [...] L5-S1, L1-L2, and on either side T11. ASSESSMENT: Patient Active Problem List Diagnosis Date Noted Moderate aortic regurgitation 01/01/2024 History of Linsey-en-Y gastric bypass 01/01/2024 Acute gastrojejunal anastomotic ulcer 01/01/2024 Chronic prescription opiate use 01/01/2024 Other specified anxiety disorders 01/01/2024 Primary hypertension 01/01/2024 Cholelithiasis 01/01/2024 Gastrojejunal ulcer with hemorrhage 01/01/2024 Syncope 12/31/2023 HNP (herniated nucleus pulposus), lumbar 02/06/2018 Acute blood loss anemia 10/19/2017 GI bleed 10/19/2017 Iron deficiency 10/19/2017 Troponin level elevated 10/19/2017 Hypocalcemia 10/19/2017 Hypokalemia 10/19/2017 Hypoalbuminemia due to protein-calorie malnutrition (HCC) 10/19/2017 MVP (mitral valve prolapse) Gastric ulcer without hemorrhage or perforation Hypovolemic shock (HCC) 10/18/2017 Acute upper GI bleed 10/18/2017 Lactic acidosis 10/18/2017 Hyponatremia 10/18/2017 Orthostatic hypotension 10/18/2017 Hypotension due to blood loss 10/18/2017 AAA (abdominal aortic aneurysm) (HCC) Complex regional pain syndrome Peptic ulcer disease 09/23/2017 PLAN: WEAN PER PROTOCOL: [] No [] Yes [x] N/A ICU PROPHYLAXIS: Stress ulcer: [x] PPI Agent [] [id number] [x] Sucralfate [] Other [] None VTE: [] Enoxaparin [] SQ Heparin [] EPC Cuffs [] Other NUTRITION: [] NPO [] TF: [] TPN [x] PO HOME MEDS RECONCILED: [] No [x] Yes CONSULTATION NEEDED: [] No [x] Yes FAMILY UPDATED: [] No [x] Yes TRANSFER OUT OF ICU: [x] No [] Yes PLAN/MEDICAL DECISION MAKING: Neurologic: - Dx: Normal neurologic function - Mental status: Alert and oriented - Pain control: As needed with oxycodone and hydromorphone Cardiovascular: Hypertensive - EKG: Unremarkable - Echo: Increased wall thickness, dilated aortic root, EF 55 to 60% - Goal SBP maps above 65 Pulmonary: Maintain oxygen sats >92% Pulmonary toilet Current Pulse Ox: SpO2: 94 % GI/Nutrition Continue sucralfate Continue Protonix for 72 hours Diet: ADULT DIET; Clear Liquid Last BM: yesterday, blood tinged Renal/Fluid/Electrolyte IV Fluids: 0.9NS @ 50 mL/Hr I/O: In: 2208.8 [I.V.:2208.8] Out: 6010 [Urine:6010] UOP: 2.7 cc/kg/hr overnight BUN/Cr:35/0.6 Monitor electrolytes, replace PRN ID WBC: Lab Results Component Value Date WBC 7.3 01/03/2024 Tmax: Temp (24hrs), Av.6 F (37 C), Min:98.2 F (36.8 C), Max:99.1 F (37.3 C) Antimicrobials: not indicated Hematology: Recent Labs 01/02/24195201/03/24 0127 01/03/24 0600 HGB 9.1* 9.0* 8.6* trending down Endocrine: glucose controlled - most recent BGL is Recent Labs 01/01/24 19301/02/24 0508 01/03/24 0600 GLUCOSE 104* 105* 95 DVT Prophylaxis SCD sleeves -thigh high and No chemoprophylaxis anticoagulation at this time. Discharge Needs: PT, OT, ST, SW, and Case Management CODE STATUS: Full Code DISPOSITION: [x] To remain ICU: [] OK for out of ICU from Critical Care standpoint Livia Manzo MD Critical Care, PGY-1 [facility], [facility] 01/03/24 11:41 AM Attending Physician Statement I have discussed the care of Candy Booth, including pertinent history and exam findings, with the resident. I have seen and examined the patient and the yadav elements of all parts of the encounter have been performed by me. I agree with the assessment, plan and orders as documented by the resident with additions . Remove arterial sheath , hemostasis Serial hb Total critical care time caring for this patient with life threatening, unstable organ failure, including direct patient contact, management of life support systems, review of data including imaging and labs, discussions with other team members and physicians at least 30 Min so far today, excludingprocedures. Please note that this chart was generated using voice recognition [email or web address] dictation software. Although every effort was made to ensure the accuracy of this automated molder pipe covering, some errors in molder pipe covering may have occurred. * Margaret Sullivan, DO - 01/03/2024 7:45 AM EDT Images from the original note were not included. [facility] BARIATRICS SURGERY CONSULT NOTE PATIENT: Candy Booth : 1970 ADMISSION DATE: 12/30/2023 5:58 PM TODAY'S DATE: 01/03/24 LOS: 4 ATTENDING PHYSICIAN: Suzanne Celeste MD REASON FOR CONSULT: Abdominal pain, history of Linsey-en-Y gastric bypass, GI bleed HISTORY OF PRESENT ILLNESS: 53 years old female with history of AAA, CAD, atrial fibrillation not on anticoagulation, MVP, Linsey-en-Y gastric bypass in 2007 with multiple upper GI bleeding associated with NASID use, small bowel obstruction, appendectomy, hysterectomy presented hospital with abdominal pain. Patient was a transfer from [facility] 4 days ago after an acute dark black looking bleeding which was treated with PPI, has had few days of blood transfusion in the hospital before transfer. Per patient, she had multiple different PPI, she only can tolerate Dexlansoprazole, which she used this medication intermittently when she has flare of GI bleeding and abdominal pain. Patient does not remember who and what hospital performed at the surgery of gastric Linsey-en-Y bypass. GI team was consulted for the GI bleeding, EGD was attempted with finding of large gastrojejunal anastomosis ulcer with visible vesselswhich was treated with heater probe with formal coagulation, and epinephrine for hemostasis on top of Hemospray. After their procedure, patient complains of increasing abdominal pain, her hemoglobin trend down from 10.6 to 7.7, and she became hypotensive and tachycardia. She received total 2 unit of blood so far here at [facility]. She feels improved and has not pain. Still has some old blood in stools yesterday, no bright red blood. Hgb has been stable. PAST MEDICAL HISTORY: Diagnosis Date AAA (abdominal aortic aneurysm) (HCC) Arthritis back, ankles CAD (coronary artery disease) aortic and pulmonic stenosis, mitral valve prolapse, enlarged aorta Chronic headache Complex regional pain syndrome Depression JESSICA (generalized anxiety disorder) History of blood transfusion 08/2017 and 09/2017 after GI bleed Left tibial fracture 2018 no surgical corrrection MVP (mitral valve prolapse) Neuropathy Obesity - status post gastric bypass Peptic ulcer disease 09/2017 PONV (postoperative nausea and vomiting) 2009 nausea and vomiting after a body lift Primary hypertension 01/01/2024 Small bowel obstruction - due to adhesions PAST SURGICAL HISTORY: Procedure Laterality Date APPENDECTOMY 1993 COLON SURGERY COLONOSCOPY 2018 COSMETIC SURGERY 2009 total body lift DILATATION, ESOPHAGUS ENDOSCOPY, COLON, DIAGNOSTIC 2018 ESOPHAGOGASTRODUODENOSCOPY EYE SURGERY 2001 lasik surgery FOOT SURGERY Had foot surgery with nerve injury leaving patient with chronic pain of foot GASTRIC BYPASS SURGERY HYSTERECTOMY (CERVIX STATUS UNKNOWN) 1993 IR EMBOLIZATION HEMORRHAGE 01/01/2024 IR EMBOLIZATION HEMORRHAGE 01/01/2024 Nasir Martinez MD [facility] SPECIAL PROCEDURES LAPAROSCOPY Small bowel obstruction due to adhesions RI COLONOSCOPY FLX DX W/COLLJ SPEC WHEN PFRMD N/A 10/20/2017 COLONOSCOPY performed by Juancarlos Maldonado MD at [facility] Endoscopy RI EGD TRANSORAL CONTROL BLEEDING ANY METHOD Left 10/19/2017 EGD CONTROL HEMORRHAGE performed by Juancarlos Maldonado MD at [facility] Endoscopy RI LAMNOTMY INCL W/DCMPRSN NRV ROOT 1 INTRSPC LUMBR N/A 02/09/2018 L4-5 DISKECTOMY LEFT performed by Ronal Matos MD at [facility] OR UPPER GASTROINTESTINAL ENDOSCOPY UPPER GASTROINTESTINAL ENDOSCOPY N/A 01/01/2024 ESOPHAGOGASTRODUODENOSCOPY CONTROL HEMORRHAGE performed by Jen Harvey MD at [facility] OR UPPER GASTROINTESTINAL ENDOSCOPY 01/01/2024 ESOPHAGOGASTRODUODENOSCOPY SCLEROTHERAPY performed by Jen Harvey MD at [facility] OR ALLERGIES: Nsaids, Milk (cow), Acetaminophen-codeine, and Codeine SOCIAL HISTORY Social History Tobacco Use Smoking status: Every Day Current packs/day: 1.00 Average packs/day: 1 pack/day for 9.6 years (9.6 ttl pk-yrs) Types: Cigarettes Start date: 2014 Smokeless tobacco: Never Tobacco comments: started at age 13 for 4 yrs, quit then started back in 2014 Vaping Use Vaping status: Never Used Substance Use Topics Alcohol use: No FAMILY HISTORY: Problem Relation Age of Onset Cancer Mother renal, right kidney removed Other Mother thyroidectomy, neck fusion Heart Disease Father 55 Arthritis Father Coronary Art Dis Father Cancer Father lung Other Sister thryoidectomy, Arthritis Sister cervical fusion No Known Problems Brother Other Daughter mitral valve prolapse, low albumin MEDICATIONS PRIOR TO ADMISSION: Medications Prior to Admission: carisoprodol (SOMA) 350 MG tablet, Take 350 mg by mouth 4 times daily as needed for Muscle spasms.. (Patient not taking: Reported on 12/30/2023) eletriptan (RELPAX) 40 MG tablet, Take 1 tablet by mouth once as needed may repeat in 2 hours if necessary pantoprazole (PROTONIX) 40 MG tablet, Take 1 tablet by mouth every morning (before breakfast) (Patient not taking: Reported on 12/30/2023) ferrous sulfate 325 (65 Fe) MG EC tablet, Take 1 tablet by mouth 2 times daily (with meals) (Patient not taking: Reported on 12/30/2023) pregabalin (LYRICA) 100 MG capsule, Take 2 capsules by mouth three times daily. oxyCODONE (OXY-IR) 15 MG immediate release tablet, Take 2 tablets by mouth every 4 hours as needed for Pain. ALPRAZolam (XANAX) 0.5 MG tablet, Take 1 tablet by mouth every 4 hours as needed for Anxiety. sertraline (ZOLOFT) 100 MG tablet, Take 2 tablets by mouth at bedtime Cholecalciferol (VITAMIN D3) 16434 units CAPS, Take by mouth Twice a Week carvedilol (COREG) 3.125 MG tablet, Take 3.125 mg by mouth 2 times daily (Patient not taking: Reported on 12/30/2023) REVIEW OF SYSTEMS: Constitutional: Denies weight loss, fever and chills Head: Denies headache and head trauma EENT: Denies changes in vision and hearing, Denies rhinorrhea and epistaxis Mouth/Throat: Denies sore throat and hoarseness. Neck: Denies cervicalgia or neck swelling CV: Denies palpitations and CP Resp: Denies SOB and cough GI: Abdominal pain, nausea : Denies dysuria and urinary frequency MSK: Denies myalgia and joint pain Neuro: Denies syncope and weakness. Skin: Denies rash and pruritus Psych: Denies recent changes in mood. Denies anxiety and depression PHYSICAL EXAM: VITALS Temp Av.4 F (36.9 C) Min: 98.2 F (36.8 C) Max: 99.1 F (37.3 C) Systolic (24hrs), Av , Min:108 , Max:193 Diastolic (24hrs), Av, Min:68, Max:107 Pulse Av.2 Min: 74 Max: 113 Resp Av Min: 10 Max: 24 SpO2: 94 % SpO2 Av.9 % Min: 89 % Max: 100 % General: No acute distress. A&Ox3. Head: NC/AT. EENT: Conjunctiva moist without icterus. Ears are symmetric. Normal auditory acuity. Nares are patent. No rhinorrhea. Mouth/Throat: Oral mucus membranes are moist. Neck: Supple. No LAD. Cardiovascular: Regular rate and rhythm. Warm, well perfused. Respiratory: Equal chest rise bilaterally. No wheezes, stridor, or increased work of breathing. Abdomen: Tender to palpate at her epigastric, left abdomen, mildly distended. Otherwise, no reboundor guarding yet. Neuro: Motor and sensory grossly intact. Extremities: Warm, dry, and well perfused. Limbs without apparent deformity. Skin: No rashes or lesions. Psych: Normal mood and appropriate affect LABS: Recent Labs 01/02/24 0508 01/02/24 0953 01/02/24 1953 01/03/24 0127 01/03/24 0600 WBC 6.8 -- -- 8.4 7.3 HGB 8.4* < > 9.1* 9.0* 8.6* PLT 207 -- -- 219 220 < > = values in this interval not displayed. Recent Labs 01/01/24 1933 01/02/24 0508 01/03/24 0127 01/03/24 06 NA 137 141 -- 140 K 3.9 3.0* 3.1* 3.4* CL 106 110* -- 106 CO2 19* 22 -- 24 BUN 8 8 -- 3* CREATININE 0.3* 0.3* -- 0.3* GLUCOSE 104* 105* -- 95 Recent Labs 01/01/24 0411 01/01/241932 AST 40* 42* ALT 10 13 ALKPHOS 161* 124* BILITOT 0.3 0.8 BILIDIR <0.2 -- Recent Labs 01/01/24 191 APTT 24.6 INR 0.9 IMAGING: No results found. ASSESSMENT Patient Active Problem List Diagnosis Hypovolemic shock (HCC) Acute upper GI bleed Lactic acidosis Hyponatremia Orthostatic hypotension Hypotension due to blood loss AAA (abdominal aortic aneurysm) (HCC) Complex regional pain syndrome Peptic ulcer disease Acute blood loss anemia GI bleed MVP (mitral valve prolapse) Iron deficiency Troponin level elevated Hypocalcemia Hypokalemia Hypoalbuminemia due to protein-calorie malnutrition (HCC) Gastric ulcer without hemorrhage or perforation HNP (herniated nucleus pulposus), lumbar Syncope Moderate aortic regurgitation History of Linsey-en-Y gastric bypass Acute gastrojejunal anastomotic ulcer Chronic prescription opiate use Other specified anxiety disorders Primary hypertension Cholelithiasis Gastrojejunal ulcer with hemorrhage 53 years old female with history of Linsey-en-Y gastric bypass in 2007 with multiple episodes of upper GI bleeding, current smoker, not on NSAID, present hospital with upper GI bleeding. Underwent EGD,trend H&H, evaluation surgery was consulted for possible surgical evaluation PLAN -Trend H and H -Clears -PPI -Carafate -No acute surgical intervention is indicated at this point of time. Bariatric surgery will closely follow patient -Discussed with nursing staff -Nicotine Cessation -Avoid NSAID's * Christopher Morataya MD - 01/02/2024 6:49 PM EDT Physician Progress Note PATIENT: CANDY BOOTH [facility] #: [id number] : 1970 ADMIT DATE: 12/30/2023 5:58 PM DISCH DATE: RESPONDING PROVIDER #: Christopher Morataya MD QUERY TEXT: Patient admitted with GI bleed. Noted to have exceptional children teacher assessment with malnutrition diagnosis in Nutrition Assessment note 12/30. If possible, please document in progress notes and discharge summary if you are evaluating and /or treating any of the following: The medical record reflects the following: Risk Factors: abdominal pain, diarrhea, possible peptic ulcer disease w hx Linsey-en-Y gastric bypass Clinical Indicators: per Nutrition Assessment note patient meets criteria for Moderate malnutrition: Weight Loss: Greater than 7.5% over 3 months (8% in 1-2 months), Energy Intake: 75% or less estimated energy requirements for 1 month or longer, albumin 2.8, total protein 5.0 Treatment: exceptional children teacher consult, Continue Current Diet advance as tolerated, monitor PO intake, diet tolerance, weight, labs ASPEN Criteria: [email or web address]/doi/full/[email or web address] 5 Thank you, Callie BAUER,RN, CDI email - [email or web address] cell- [phone] office hours [id number] Options provided: -- Protein calorie malnutrition moderate -- Other - I will add my own diagnosis -- Disagree - Not applicable / Not valid -- Disagree - Clinically unable to determine / Unknown -- Refer to Clinical Documentation Reviewer PROVIDER RESPONSE TEXT: This patient has moderate protein calorie malnutrition. Query created by: Callie Galindo on 01/01/2024 6:08 AM Electronically signed by: Christopher Morataya MD 01/02/2024 6:48 PM * Esteban Paulino SPTA - 01/02/2024 4:24 PM EDT Images from the original note were not included. Physical Therapy Physical Therapy Cancel Note DATE: 01/02/2024 NAME: Candy Booth : 1970 Patient not seen this date for Physical Therapy due to: Patient is not appropriate for PT evaluation/treatment at this time d/t having bloody stool; awaiting POC, spoke with RN. Will check back tomorrow, 01/02 Treatment performed by Student WELL SERVICE FLOOR WORKER under the supervision of co-signing WELL SERVICE FLOOR WORKER who agrees with all treatment and documentation. Zeyad Ashley, WELL SERVICE FLOOR WORKER * Mayuri Kilgore RN - 01/02/2024 3:59 PM EDT 1400: Builder'S Labourer has been caring for patient all shift since 0700, @ 1400 patient suddenly became untrusting of handbook writer. Patient is unable to answer orientation questions at this time. Provided notified. 1500: Orders placed, see MAR. 1533: Medication administered via Charge Nurse. Patient stating that handbook writer is not allowed to help her. Patient then called cupola charger insulation names. 1550: Builder'S Labourer assisting with IV beeping, patient stated that handbook writer needed to give back the patient daughter, and stop playing on the boats. Builder'S Labourer attempted to re-orient unsuccessfully. Patient demanded that handbook writer leave her house. She is refusing to allow handbook writer to provide medications/care at thistime. data recovery planner aware. 1700: patient continues to refuse all care. Builder'S Labourer attempted to reorient, patient demands handbook writer leave the room and not do anything. 1745: at bedside. Builder'S Labourer attempted to update, patient spouse began arguing with handbook writer thatpatient is withdrawing from pain medications. Builder'S Labourer attempted to explain that patient has had opioid medications today however he spoke over handbook writer and would not accept explanation at this time. Conversation terminated due to escalating. 1800: Builder'S Labourer requested another RN to assist due to situation escalating. * Rody Soto RD, LD - 01/02/2024 2:56 PM EDT Comprehensive Nutrition Assessment Type and Reason for Visit: Reassess Nutrition Recommendations/Plan: Continue NPO. Monitor plans for oral diet. Will monitor labs, weights, and plan of care. Malnutrition Assessment: Malnutrition Status: Moderate malnutrition (12/31/23 1437) Context: Chronic Illness Findings of the 6 clinical characteristics of malnutrition: Energy Intake: 75% or less estimated energy requirements for 1 month or longer Weight Loss: Greater than 7.5% over 3 months (8% in 1-2 months) Body Fat Loss: No significant body fat loss Muscle Mass Loss: No significant muscle mass loss Fluid Accumulation: No significant fluid accumulation Informatica Developer Strength: Not Performed Nutrition Assessment: Pt s/p EGD with large gastrojejunal anastomotic ulcer with visible vessel s/p thermal therapy, appendectomy and Hemospray application on 01/01. RN reports pt continues to have some bloody stools. Remains NPO. Will monitor plans for oral diet. Discussed with RN. Labs/Meds reviewed. Nutrition Related Findings: Meds/Labs reviewed. Hypoactive bowel sounds. +1 facial edema. Wound Type: None Current Nutrition Intake & Therapies: Average Meal Intake: NPO Average Supplements Intake: NPO Diet NPO Additional Calorie Sources: None Anthropometric Measures: Height: 170.2 cm (5' 7.01 ) [place] Body Weight (IBW): 135 lbs (61 kg) Admission Body Weight: 83.5 kg (184 lb) Current Body Weight: 86 kg (189 lb 9.5 oz), 140.4 % IBW. Weight Source: Bed Scale Current BMI (kg/m2): 29.7 Usual Body Weight: 90.7 kg (200 lb) % Weight Change (Calculated): -8 Weight Adjustment For: No Adjustment BMI Categories: Overweight (BMI 25.0-29.9) Estimated Daily Nutrient Needs: Energy Requirements Based On: Kcal/kg Weight Used for Energy Requirements: Admission Energy (kcal/day): 3125-8276 kcals/day Weight Used for Protein Requirements: Admission Protein (g/day): 90-120 kcals/day Method Used for Fluid Requirements: 1 ml/kcal Fluid (ml/day): per MD Nutrition Diagnosis: Inadequate oral intake related to altered GI function as evidenced by NPO or clear liquid status due to medical condition Nutrition Interventions: Food and/or Nutrient Delivery: Continue NPO (Monitor plans for oral diet.) Nutrition Education/Counseling: No recommendation at this time Coordination of Nutrition Care: Continue to monitor while inpatient Plan of Care discussed with: RN Goals: Previous Goal Met: No Progress toward Goal(s) Goals: Meet at least 75% of estimated needs, prior to discharge Specify Other Goals: within 5 days of admission Nutrition Monitoring and Evaluation: Behavioral-Environmental Outcomes: None Identified Food/Nutrient Intake Outcomes: Diet Advancement/Tolerance Physical Signs/Symptoms Outcomes: Biochemical Data, GI Status, Nausea or Vomiting, Fluid Status or Edema, Weight, Skin, Hemodynamic Status Discharge Planning: Too soon to determine Rody Soto RD, CALEB Contact: [phone] * Yael Santamaria OT - 01/02/2024 1:28 PM EDT Images from the original note were not included. [facility] Occupational Therapy Not Seen Note DATE: 01/02/2024 NAME: Candy Booth : 1970 Patient not seen this date for Occupational Therapy due to: Patient is not appropriate for active participation in OT evaluation/treatment at this time d/t just having bloody stool; awaiting POC, spoke with caring RN Next Scheduled Treatment: Ck 01/02 * Christopher Morataya MD - 01/02/2024 8:25 AM EDT Critical Care Team - Daily Progress Note Date and time: 01/02/2024 8:26 AM Patient's name: Candy Booth Patient's account/billing number: [id number] Patient's Date of : 1970 Age: 53 y.o. Date of Admission: 12/30/2023 5:58 PM Length of stay during current admission: 3 Primary Care Physician: Maureen Mitchell MD ICU Attending Physician: Code Status: Full Code Reason for ICU admission: No chief complaint on file. Subjective: OVERNIGHT EVENTS: Patient having high blood pressures, needing PRN labetalol. Having some bloody stools, however not fresh blood. H/H trending normally, however continue to follow. Today - H/H q6 - Labetalol 10mg q6 for BP control - Keep introducer sheath from IR - If pt is bleeding, contact IR and bariatric surgery AWAKE & FOLLOWING COMMANDS: [] No [x] Yes CURRENT VENTILATION STATUS: [] Ventilator [] BIPAP [] Nasal Cannula [x] Room Air IF INTUBATED, ET TUBE MARKING AT LOWER LIP: cms SECRETIONS Amount: [] Small [] Moderate [] Large [x] None Color: [] White [] Colored [] Bloody SEDATION: RAAS Score: [] Propofol gtt [] Versed gtt [] Ativan gtt [x] No Sedation PARALYZED: [x] No [] Yes DIARRHEA: [x] No [] Yes (C. Difficile status: [] positive [] negative [] pending) VASOPRESSORS: [x] No [] Yes If yes - [] Levophed [] Dopamine [] Vasopressin [] Dobutamine [] Phenylephrine [] Epinephrine CENTRAL LINES: [x] No [] Yes (Date of Insertion: ) If yes - [] Right IJ [] Left IJ [] Right Femoral [] Left Femoral [] Right Subclavian [] Left Subclavian ELAINE'S CATHETER: [] No [x] Yes (Date of Insertion: ) URINE OUTPUT: [] Good [x] Low [] Anuric REVIEW OF SYSTEMS: Constitutional: Negative for Fever, chills Eyes: Negative for visual changes, diplopia ENT: Negative for mouth sores, sore throat. Cardiovascular: Negative for lightheadedness ,chest pain, palpitations Respiratory:Negative for Shortness of breath,cough or wheezing. Gastrointestinal: Negative for nausea/vomiting, bloody bowel movements, abdominal pain and tenderness Genitourinary:Negative for change in bladder habits, dysuria, hematuria. Musculoskeletal: Negative for joint pain Neurological: Negative for headache, change in muscle strength numbness/tingling OBJECTIVE: VITAL SIGNS: BP (!) 177/83 Pulse 90 Temp 98.2 F (36.8 C) (Oral) Resp 14 Ht 1.702 m (5' 7 ) Wt 86 kg (189 lb 9.5 oz) SpO2 96% BMI 29.69 kg/m Tmax over 24 hours: Temp (24hrs), Av.3 F (36.8 C), Min:97.7 F (36.5 C), Max:98.8 F (37.1 C) Patient Vitals for the past 8 hrs: BP Temp Temp src Pulse Resp SpO2 01/02/24 0821 (!) 177/83 -- -- 90 -- -- 01/02/24 0700 -- -- -- 87 14 96 % 01/02/24 0645 -- -- -- 90 18 95 % 01/02/24 0630 -- -- -- 90 23 97 % 01/02/24 0615 -- -- -- 88 16 98 % 01/02/24 0600 -- -- -- 87 16 97 % 01/02/24 0545 -- -- -- 90 14 98 % 01/02/24 0530 -- -- -- 92 14 94 % 01/02/24 0515 -- -- -- 91 21 97 % 01/02/24 0500 -- -- -- 91 20 100 % 01/02/24 0445 -- -- -- 81 16 93 % 01/02/24 0430 -- -- -- 76 16 94 % 01/02/24 0420 (!) 183/88 -- -- 91 -- -- 01/02/24 0415 -- -- -- 92 15 95 % 01/02/24 0400 -- 98.2 F (36.8 C) Oral 89 14 95 % 01/02/24 0345 -- -- -- 87 16 94 % 01/02/24 0330 -- -- -- 94 13 97 % 01/02/24 0315 -- -- -- 99 22 97 % 01/02/24 0300 -- -- -- 98 15 98 % 01/02/24 0245 -- -- -- (!) 101 (!) 32 95 % 01/02/24 0230 -- -- -- (!) 102 18 95 % 01/02/24 0215 -- -- -- (!) 102 18 95 % 01/02/24 0200 -- -- -- (!) 106 17 96 % 01/02/24 0145 -- -- -- 95 16 96 % 01/02/24 0130 -- -- -- 90 13 96 % 01/02/24 0115 -- -- -- 91 19 95 % 01/02/24 0100 -- -- -- 94 14 93 % 01/02/24 0045 -- -- -- 93 14 95 % 01/02/24 0030 -- -- -- 95 17 96 % Intake/Output Summary (Last 24 hours) at 01/02/2024 0826 Last data filed at 01/02/2024 0600 Gross per 24 hour Intake 5243.5 ml Output 2925 ml Net 2318.5 ml Date 01/02/24 0000 - 01/02/24 2359 Shift 3815-5042 8146-6739 1809-3492 24 Hour Total INTAKE I.V.(mL/kg) 3821.8(44.4) 3821.8(44.4) IV Piggyback(mL/kg) 700(8.1) 700(8.1) Shift Total(mL/kg) 4521.8(52.6) 4521.8(52.6) OUTPUT Urine(mL/kg/hr) 950(1.4) 950 Shift Total(mL/kg) 950(11) 950(11) Weight (kg) 86 86 86 86 Wt Readings from Last 3 Encounters: 01/01/24 86 kg (189 lb 9.5 oz) 03/24/20 90.7 kg (200 lb) 01/19/19 83.5 kg (184 lb) Body mass index is 29.69 kg/m . PHYSICAL EXAM: Constitutional: Awake and alert HEENT: PERRLA, EOMI, sclera clear, anicteric Respiratory: clear to auscultation, no wheezes or rales and unlabored breathing. Cardiovascular: regular rate and rhythm, normal S1, S2, no murmur noted and 2+ pulses throughout Abdomen: soft, nontender, nondistended, no masses or organomegaly NEUROLOGIC: Awake, alert, oriented to name, place and time. Cranial nerves II- XII are grossly intact. Motor is 5 out of 5 bilaterally. Sensory is intact. Extremities: peripheral pulses normal, no pedal edema,. Any additional physical findings: MEDICATIONS: Scheduled Meds: pantoprazole 80 mg IntraVENous Once cyanocobalamin 1,000 mcg IntraMUSCular Once [Held by provider] carvedilol 6.25 mg Oral BID WC sodium chloride flush 5-40 mL IntraVENous 2 times per day pregabalin 200 mg Oral TID RT sertraline 200 mg Oral Nightly Continuous Infusions: pantoprazole 8 mg/hr (01/02/24512) sodium chloride norepinephrine sodium chloride sodium chloride 75 mL/hr at 01/02/24512 sodium chloride PRN Meds: potassium chloride, 40 mEq, PRN Or potassium alternative oral replacement, 40 mEq, PRN Or potassium chloride, 10 mEq, PRN sodium chloride, , PRN sodium chloride, , PRN ipratropium 0.5 mg-albuterol 2.5 mg, 1 Dose, Q4H PRN guaiFENesin, 600 mg, BID PRN benzonatate, 200 mg, TID PRN sodium chloride flush, 5-40 mL, PRN sodium chloride, , PRN acetaminophen, 650 mg, Q6H PRN Or acetaminophen, 650 mg, Q6H PRN ALPRAZolam, 0.5 mg, 4x Daily PRN oxyCODONE, 15 mg, Q4H PRN Or oxyCODONE, 20 mg, Q4H PRN HYDROmorphone, 0.5 mg, Q3H PRN labetalol, 20 mg, Q2H PRN hydrALAZINE, 20 mg, Q4H PRN SUPPORT DEVICES: [] Ventilator [] BIPAP [] Nasal Cannula [x] Room Air VENT SETTINGS (Comprehensive) (if applicable): Additional Respiratory Assessments Pulse: 90 Respirations: 14 SpO2: 96 % ABGs: No results found for: PHART , PH , CTH8XVQ , PCO2 , PO2ART , PO2 , BUS3XFS , HCO3 , BEART , BE , THGBART , THB , LDK6KWY , D2QKVYGV , O2SAT , FIO2 Lactic Acid: No results found for: LACTA DATA: Complete Blood Count: Recent Labs 01/01/24 1910 01/02/24 0154 01/02/24 0508 WBC 6.5 6.9 6.8 HGB 10.2* 8.8* 8.4* MCV 92.6 92.1 91.9 PLT 222 215 207 RBC 3.23* 2.79* 2.70* HCT 29.9* 25.7* 24.8* MCH 31.6 31.5 31.1 MCHC 34.1 34.2 33.9 RDW 22.1* 22.9* 23.0* MPV 9.5 9.2 9.3 PT/INR: Lab Results Component Value Date/Time PROTIME 12.3 01/01/2024 07:13 PM INR 0.9 01/01/2024 07:13 PM PTT: Lab Results Component Value Date/Time APTT 24.6 01/01/2024 07:13 PM APTT 26.6 02/06/2018 08:24 AM Basal Metabolic Profile: Recent Labs 01/01/24 0411 01/01/24 1933 01/02/24 0508 NA 139 137 141 K 3.3* 3.9 3.0* BUN <1* 8 8 CREATININE 0.3* 0.3* 0.3* CL 107 106 110* CO2 23 19* 22 Magnesium: Lab Results Component Value Date/Time MG 1.9 01/02/2024 05:08 AM MG 2.0 01/01/2024 04:11 AM MG 1.9 12/31/2023 12:46 AM Phosphorus: Lab Results Component Value Date/Time PHOS 3.7 12/31/2023 12:46 AM S. Calcium: Recent Labs 01/02/24 0508 CALCIUM 7.8* S. Ionized Calcium:Invalid input(s): IONCA Urinalysis: Lab Results Component Value Date/Time NITRU NEGATIVE 12/31/2023 12:32 AM COLORU Yellow 12/31/2023 12:32 AM PHUR 5.5 12/31/2023 12:32 AM PHUR 6.0 02/06/2018 08:24 AM CLARITYU Clear 02/06/2018 08:24 AM LEUKOCYTESUR NEGATIVE 12/31/2023 12:32 AM UROBILINOGEN Normal 12/31/2023 12:32 AM BILIRUBINUR NEGATIVE 12/31/2023 12:32 AM BLOODU Negative 02/06/2018 08:24 AM GLUCOSEU NEGATIVE 12/31/2023 12:32 AM KETUA NEGATIVE 12/31/2023 12:32 AM CARDIAC ENZYMES: No results for input(s): CKMB , CKMBINDEX , TROPONINI in the last 72 hours. Invalid input(s): CKTOTAL;3 BNP: No results for input(s): BNP in the last 72 hours. LFTS Recent Labs 12/31/236 01/01/2441001/01/241932 ALKPHOS 174* 161* 124* ALT 13 10 13 AST 47* 40* 42* BILITOT 0.4 0.3 0.8 BILIDIR 0.2 <0.2 -- AMYLASE/LIPASE/AMMONIA Recent Labs 01/01/241932 LIPASE 18 Last 3 Blood Glucose: Recent Labs 12/31/236 01/01/2441001/01/24193201/02/24 0508 GLUCOSE 89 86 104* 105* HgBA1c: No results found for: LABA1C TSH: Lab Results Component Value Date/Time TSH 6.81 12/31/2023 12:46 AM ANEMIA STUDIES Recent Labs 12/31/236 12/31/2327 TIBC -- 213* [id number] 271 -- FOLATE 5.4 -- Cultures during this admission: Blood cultures: [x] None drawn [] Negative [] Positive (Details: ) Urine Culture: [x] None drawn [] Negative [] Positive (Details: ) Sputum Culture: [x] None drawn [] Negative [] Positive (Details: ) Endotracheal aspirate: [x] None drawn [] Negative [] Positive (Details: ) ASSESSMENT: Principal Problem: GI bleed Active Problems: Hyponatremia Hypotension due to blood loss Acute blood loss anemia Hypokalemia Syncope Moderate aortic regurgitation History of Linsey-en-Y gastric bypass Acute gastrojejunal anastomotic ulcer Chronic prescription opiate use Other specified anxiety disorders Primary hypertension Cholelithiasis Gastrojejunal ulcer with hemorrhage Resolved Problems: * No resolved hospital problems. * This is a 53 y.o. female with previous history of gastric ulcer at junction gastrojejunal anastomosis for Linsey-en-Y who presents with bleeding from unknown source. Patient had GI, that showed 3 cm vessel that was attempted to be thermal cauterized and started bleed, epinephrine was injected in the area. IR performed intraoperative CTA with no extravasation. CTA of abdomen with contrast showing no extravasation. Bariatric surgery stating nothing else to be done. Advance diet as tolerated. PPI, Carafate, H2 archie. Stating to notify if patient comes hypotensive, has tachycardia, or has having increased abdominal pain. Tracking labs. If pt condition changes or patient begins bleeding, will contact IR and surgery. PLAN: PLAN/MEDICAL DECISION MAKING: NEUROLOGIC: - Dx: Normal neurologic function - Mental status: Alert and oriented - Pain control: As needed with fentanyl CARDIOVASCULAR: BP Range: Systolic (24hrs), Av , Min:87 , Max:183 Diastolic (24hrs), Av, Min:54, Max:116 Pulse Range: Pulse Av.4 Min: 70 Max: 119 - EKG: Unremarkable - Echo: Increased wall thickness, dilated aortic root, EF 55 to 60% - Goal SBP maps above 65 PULMONARY: Respiration Range: Resp Av.2 Min: 13 Max: 32 Current Pulse Ox: SpO2: 96 % 24HR Pulse Ox Range: SpO2 Av.6 % Min: 92 % Max: 100 % RENAL/FLUID/ELECTROLYTE: - Dx: - BUN/Cr: 8/0.3 - Electrolytes: Hypokalemic - I/O: In: 5743.5 [I.V.:4221.8; Blood:721.7] Out: 2925 [Urine:2925] - IVF: LR GI/NUTRITION: Diet NPO - Dx: GI bleeding versus other bleeding, hemoglobin continues to downtrend however IR not finding source of bleeding. Stable for now. Bloody bowel movements but hemoglobin not downtrending in afternoon. - Bowel regimen: - GI prophylaxis: Protonix drip -Bariatric surgery stating patient okay for stepdown, not hypotensive, continue Carafate, PPI, H2 archie. Notify of changes ID: Tmax: Temp (24hrs), Av.3 F (36.8 C), Min:97.7 F (36.5 C), Max:98.8 F (37.1 C) Temperature Range: Temp: 98.2 F (36.8 C) Temp Av.3 F (36.8 C) Min: 97.7 F (36.5 C) Max: 98.8 F(37.1 C) - WBC Lab Results Component Value Date WBC 6.8 01/02/2024 - Dx: Afebrile, no leukocytosis - Antimicrobials: May need something like Rocephin if bleeding continues HEME: Recent Labs 01/01/24 1910 01/02/24 0154 01/02/24 0508 HGB 10.2* 8.8* 8.4* Trending down - Platelets: Stable - Dx: Continued downtrending hemoglobin with no known cause of bleeding ENDOCRINE: - Dx: No glucose issues - Continue to monitor blood glucose, goal <180 - Most recent BGL is Recent Labs 01/01/24 0411 01/01/24 1933 01/02/24 0508 GLUCOSE 86 104* 105* OTHER: - PT/OT/ST as tolerated - Code Status: Full Code PROPHYLAXIS: - Stress ulcer: PPI, Protonix drip- DVT: SCDs, anticoagulation held FAMILY UPDATED: [] No [x] Yes HOME MEDICATIONS RECONCILED: [x] No [] Yes CONSULTATION NEEDED: [] No [x] Yes Dain Roland MD Department of Internal Medicine/ Critical care [place], [place] 01/02/2024 8:26 AM Attending Physician Statement I have discussed the care of Candy Booth, including pertinent history and exam findings, with the resident. I have seen and examined the patient and the yadav elements of all parts of the encounter have been performed by me. I agree with the assessment, plan and orders as documented by the resident with additions . Developing delirium Monitor H/H Total critical care time caring for this patient with life threatening, unstable organ failure, including direct patient contact, management of life support systems, review of data including imaging and labs, discussions with other team members and physicians at least 35 Min so far today, excludingprocedures. Please note that this chart was generated using voice recognition [employer] dictation software. Although every effort was made to ensure the accuracy of this automated molder pipe covering, some errors in molder pipe covering may have occurred. * Rachel Brewer, - 01/02/2024 6:40 AM EDT Images from the original note were not included. [facility] BARIATRICS SURGERY PROGRESS NOTE Patient Name: Candy Booth Date of admission: 12/30/2023 Length of Stay: 3 Subjective: Patient seen and examined this morning, no acute events overnight. She has been doing better compared to yesterday, her blood pressure has been stay high overnight without pressor support. She actually required labetalol for hypertension. Her heart rate is also normalized, only 1 episode of tachycardia. Her hemoglobin is 8.4 this morning compared to 8.8 yesterday. Interventional radiology attempted to embolize the possible bleeding vessel, but there is no active extravasation, pseudoaneurysm orother treatable arterial lesion was found. Improved abdominal pain, still have mild discomfort at the epigastric area and lower abdomen. No nausea or vomiting. Had 3 bowel movement yesterday, with brownish looking, no blood in it. Vitals: Temp Av.1 F (36.7 C) Min: 97 F (36.1 C) Max: 98.8 F (37.1 C) Systolic (24hrs), Av , Min:87 , Max:199 Diastolic (24hrs), Av, Min:54, Max:116 Pulse Av.7 Min: 70 Max: 119 Resp Av.3 Min: 13 Max: 32 SpO2: 97 % SpO2 Av.5 % Min: 92 % Max: 100 % I/O's I/O last 3 completed shifts: In: 1221.7 [I.V.:400; Blood:721.7; IV Piggyback:100] Out: 1529 [Urine:1527; Stool:2] Date 01/02/24 - 01/02/24 2359 Shift [id number] 0258-6049 3538-2193 24 Hour Total INTAKE I.V.(mL/kg) 3821.8(44.4) 3821.8(44.4) IV Piggyback(mL/kg) 700(8.1) 700(8.1) Shift Total(mL/kg) 4521.8(52.6) 4521.8(52.6) OUTPUT Urine(mL/kg/hr) 800 800 Shift Total(mL/kg) 800(9.3) 800(9.3) Weight (kg) 86 86 86 86 Physical exam: General: NAD, resting comfortably in bed. Lungs: Equal chest rise bilaterally, no audible wheezes or rhonchi. Heart: Regular rate and rhythm. Warm and well perfused. Abdomen: Mild tenderness to palpate at the epigastric and lower abdomen, otherwise, abdomen soft, nondistended, no rebound or guarding. Extremities: Moves all extremities x4, No edema Labs: CBC: Recent Labs 12/31/23 0046 12/31/23 0727 12/31/23 1222 01/01/24190901/01/24191201/02/24 0154 01/02/24 0508 WBC 5.2 -- < > 6.5 -- 6.9 6.8 RBC 3.20* -- < > 3.23* -- 2.79* 2.70* HGB 10.9* 11.2* < > 10.2* -- 8.8* 8.4* HCT 33.2* 33.1* < > 29.9* -- 25.7* 24.8* MCV 103.8* -- < > 92.6 -- 92.1 91.9 MCH 34.1* -- < > 31.6 -- 31.5 31.1 MCHC 32.8 -- < > 34.1 -- 34.2 33.9 RDW 18.8* -- < > 22.1* -- 22.9* 23.0* PLT 197 -- < > 222 -- 215 207 MPV 9.2 -- < > 9.5 -- 9.2 9.3 INR 0.9 0.9 -- -- 0.9 -- -- < > = values in this interval not displayed. Chem: Recent Labs 12/31/23 0046 01/01/24 0411 01/01/24190901/01/24 1933 01/02/24 0508 NA 135* 139 -- 137 141 K 3.7 3.3* -- 3.9 3.0* CL 105 107 -- 106 110* CO2 20 23 -- 19* 22 GLUCOSE 89 86 -- 104* 105* BUN 2* <1* -- 8 8 CREATININE 0.4* 0.3* -- 0.3* 0.3* MG 1.9 2.0 -- -- 1.9 ANIONGAP 10 9 -- 12 9 LABGLOM >90 >90 -- >90 >90 CALCIUM 8.5* 8.5* -- 7.8* 7.8* CAION 1.23 -- 1.13 -- -- PHOS 3.7 -- -- -- -- TROPHS -- -- -- <6 -- LACTACIDWB 1.0 -- -- -- -- Recent Labs 12/31/23 0046 01/01/2441001/01/24191201/01/24 193 TSH 6.81* -- -- -- AST 47* 40* -- 42* ALT 13 10 -- 13 LDH 168 -- -- -- ALKPHOS 174* 161* -- 124* BILITOT 0.4 0.3 -- 0.8 BILIDIR 0.2 <0.2 -- -- LIPASE -- -- -- 18 POCGLU -- -- 111* -- Glucose: Recent Labs 01/01/241912 POCGLU 111* ABG:No results found for: POCPH , PHART , PH , POCPCO2 , GQW8CIO , PCO2 , POCPO2 , PO2ART , PO2 , POCHCO3 , ZZY8XNU , HCO3 , NBEA , PBEA , BEART , BE , THGBART , THB , NJR3KSM , EOLD5JCG , W2KOMDRM , O2SAT , FIO2 Radiology: CTA ABDOMEN PELVIS W WO CONTRAST Result Date: 01/01/2024 1. No active contrast extravasation or pseudoaneurysm. 2. Post Linsey-en-Y gastric bypass surgery with mural thickening and possible ulceration gastroenteric anastomosis, with a slightly irregular leftgastric branch vessel but no clear- cut contrast extravasation or pseudoaneurysm. 3. Small hiatus hernia and mural prominence gastric remnant/antrum; remainder residual stomach partially fluid- filled but otherwise WNL. 4. Some liquid stool noted in large bowel with gas- filled sigmoid but no obstruction or significant wall thickening elsewhere; remainder bowel structures WNL. 5. Small gallstone without CT evidence cholecystitis or biliary obstruction. 6. Compression deformity T11, and mild-moderate multilevel degenerative changes and some DDD, latter best seen L5- S1, L1-L2, and on either side T11. ASSESSMENT 53 years old female with history of Linsey-en-Y gastric bypass in 2007 with multiple episodes of upper GI bleeding, current smoker, not on NSAID, present hospital with upper GI bleeding. Underwent EGD,trend H&H, evaluation surgery was consulted for possible surgical evaluation Problem List Patient Active Problem List Diagnosis Hypovolemic shock (HCC) Acute upper GI bleed Lactic acidosis Hyponatremia Orthostatic hypotension Hypotension due to blood loss AAA (abdominal aortic aneurysm) (HCC) Complex regional pain syndrome Peptic ulcer disease Acute blood loss anemia GI bleed MVP (mitral valve prolapse) Iron deficiency Troponin level elevated Hypocalcemia Hypokalemia Hypoalbuminemia due to protein-calorie malnutrition (HCC) Gastric ulcer without hemorrhage or perforation HNP (herniated nucleus pulposus), lumbar Syncope Moderate aortic regurgitation History of Linsey-en-Y gastric bypass Acute gastrojejunal anastomotic ulcer Chronic prescription opiate use Other specified anxiety disorders Primary hypertension Cholelithiasis Gastrojejunal ulcer with hemorrhage PLAN -Pain and nausea control PRN -Monitor vitals per unit standard -Encourage IS, pulmonary hygiene, and ambulation -Monitor I/O's -Okay to resume diet from surgery standpoint -Interventional radiology attempted angiogram, no apparent bleeding was found. -Has had 2 unit of blood since admission, no blood transfusion overnight, hypertensive instead of hypotensive overnight. -No acute surgical intervention is indicated at this point from surgery standpoint, patient can go to stepdown. -If patient becomes hypotensive, tachycardia or having increased abdominal pain, please notify surgery team. -Recommend to continue PPI, Carafate, and H2 archie General Surgery Resident, PGY-3 Associated attestation - Margaret Sullivan DO - 01/02/2024 7:49 PM EDT I have discussed the care of the patient, including pertinent history and exam findings, with the resident. I have seen and examined the patient and the yadav elements of all parts of the encounter have been performed by me. I agree with the assessment, plan and orders as documented by the resident. Trend H and H PPI Carafate Avoid nicotine Patient updated EGD and IR angiogram reviewed All questions answered * Mel Castillo APRN - DRILLING ASSISTANT - 01/02/2024 6:05 AM EDT [facility]'s Gastroenterology Progress Note Candy Booth is a 53 y.o. female patient. Hospitalization Day:3 Chief consult reason: GI bleed Subjective: Patient seen and examined in the ICU. Patient reports overall doing well. Blood pressure has been stable. Patient reports having 2 bowel movements overnight. Stool observed to be reddish-brown. Patient had acute drop in hemoglobin yesterday and hypotension. CT A/P showed no active contrast extravasation or pseudoaneurysm. Patient taken to IR for possible embolization. Angiography showed no active extravasation or other treatable arterial lesion noted. Objective: VITALS: BP (!) 183/88 Pulse 91 Temp 98.2 F (36.8 C) (Oral) Resp 21 Ht 1.702 m (5' 7 ) Wt 86 kg (189 lb 9.5 oz) SpO2 97% BMI 29.69 kg/m TEMPERATURE: Current - Temp: 98.2 F (36.8 C); Max - Temp Av.1 F (36.7 C) Min: 97 F (36.1 C) Max: 98.8 F (37.1 C) Physical Assessment: General appearance: alert, cooperative and no distress Mental Status: oriented to person, place and time and normal affect Lungs: clear to auscultation bilaterally, normal effort Heart: regular rate and rhythm, no murmur Abdomen: soft, mildly tender, nondistended, normal bowel sounds Extremities: no edema, no redness, No clubbing Skin: warm, dry, no gross lesions or rashes CURRENT MEDICATIONS: Scheduled Meds: pantoprazole 80 mg IntraVENous Once cyanocobalamin 1,000 mcg IntraMUSCular Once [Held by provider] carvedilol 6.25 mg Oral BID WC sodium chloride flush 5-40 mL IntraVENous 2 times per day pregabalin 200 mg Oral TID RT sertraline 200 mg Oral Nightly Continuous Infusions: pantoprazole 8 mg/hr (01/02/24 05) sodium chloride norepinephrine sodium chloride sodium chloride 75 mL/hr at 01/02/24 05 sodium chloride PRN Meds:potassium chloride OR potassium alternative oral replacement OR potassium chloride, sodium chloride, sodium chloride, ipratropium 0.5 mg- albuterol 2.5 mg, guaiFENesin, benzonatate, sodium chloride flush, sodium chloride, acetaminophen OR acetaminophen, ALPRAZolam, oxyCODONE OR oxyCODONE, HYDROmorphone, labetalol, hydrALAZINE Data Review: LABS and IMAGING: CBC Recent Labs 12/31/23 0046 12/31/23 0727 01/01/24 0411 01/01/24 0630 01/01/24 1313 01/01/24 1910 01/02/24 0154 01/02/24 0508 WBC 5.2 -- 4.9 -- -- 6.5 6.9 6.8 HGB 10.9* < > 10.6* DUPLICATE ORDER 7.7* 10.2* 8.8* 8.4* HCT 33.2* < > 32.5* DUPLICATE ORDER 24.2* 29.9* 25.7* 24.8* MCV 103.8* -- 102.8 -- -- 92.6 92.1 91.9 MCHC 32.8 -- 32.6 -- -- 34.1 34.2 33.9 RDW 18.8* -- 18.6* -- -- 22.1* 22.9* 23.0* PLT 197 -- 220 -- -- 222 215 207 < > = values in this interval not displayed. Immature PLTs No results found for: PLTFLUORE PT/INR Recent Labs 12/31/23 0046 12/31/2372601/01/24 191 PROTIME 11.8 11.9 12.3 INR 0.9 0.9 0.9 ANEMIA STUDIES Recent Labs 12/31/23 0046 12/31/23726 IRONPERSAT -- 11* TIBC -- 213* IRON -- 24* [id number] 271 -- FOLATE 5.4 -- BMP Recent Labs 12/31/23 0046 01/01/24 0411 01/02/24 0508 NA 135* 139 141 K 3.7 3.3* 3.0* CL 105 107 110* CO2 20 23 22 BUN 2* <1* 8 CREATININE 0.4* 0.3* 0.3* GLUCOSE 89 86 105* CALCIUM 8.5* 8.5* 7.8* MG 1.9 2.0 1.9 LFTS Recent Labs 12/31/23 0046 01/01/24 0411 ALKPHOS 174* 161* ALT 13 10 AST 47* 40* BILITOT 0.4 0.3 BILIDIR 0.2 <0.2 ALBUMIN 3.0* 2.8* PT/INR Recent Labs 12/31/23 0046 12/31/23 0727 01/01/24 1913 PROTIME 11.8 11.9 12.3 INR 0.9 0.9 0.9 Cancer Markers: CEA: No results found for: CEA Ca 125: No results found for: CA125 Ca 19-9: No results found for: CA199 AFP: No results found for: AFP Lactic acid: Recent Labs 12/31/23 0046 LACTACIDWB 1.0 Radiology Review: .. CTA ABDOMEN PELVIS W WO CONTRAST Preliminary Result 1. No active contrast extravasation or pseudoaneurysm. 2. Post Linsey-en-Y gastric bypass surgery with mural thickening and possible ulceration gastroenteric anastomosis, with a slightly irregular left gastric branch vessel but no clear-cut contrast extravasation or pseudoaneurysm. 3. Small hiatus hernia and mural [...] L5-S1, L1-L2, and on either side T11. IR EMBOLIZATION HEMORRHAGE (Results Pending) ENDOSCOPY EGD 01/01/2024 Impression- Large gastro-jejunal anastomotic ulcer with visible vessel bleeding S/P thermal therapy, epi- injection and hemospray application Recommendations/Plan: Protonix gtt If patient re-bleeds, will need IR consult Monitor H&H q 6 hourly, transfuse if Hb <7 g/dl Consider repeat EGD for X-tack stitch placement if no bleeding Principal Problem: GI bleed Active Problems: Hyponatremia Hypotension due to blood loss Acute blood loss anemia Hypokalemia Syncope Moderate aortic regurgitation History of Linsey-en-Y gastric bypass Acute gastrojejunal anastomotic ulcer Chronic prescription opiate use Other specified anxiety disorders Primary hypertension Cholelithiasis Gastrojejunal ulcer with hemorrhage Resolved Problems: * No resolved hospital problems. * GI Assessment: 53-year-old female with a PMH of ascending aortic aneurysm, MVP, prior gastric bypass 2007, gastricbypass surgery with chronic pain who presented as transfer from [facility] where patient initially presented there 12/28/2019 for with syncopal episode and acute rectal bleeding. Patient had downward trend of hemoglobin and transferred to [facility] for GI bleed evaluation 1. Melena- EGD 01/02/2024 -large gastrojejunal anastomotic ulcer with visible vessel s/p thermal therapy, appendectomy and Hemospray application -Patient had 2 stools overnight that were reddish-brown in color. 2. Acute blood loss anemia-secondary to GI bleed. Acute drop in hemoglobin 01/01/2024-CTA negative. IR angiogram without signs of bleeding - Hgb continues to trend down. Currently 8.4 g/dL. Likely ongoing oozing from duodenal ulcer. 3. Diffuse abdominal pain -improved 4. Linsey-en-Y gastric anatomy Recommendations: Diet at the discretion of general surgery Okay for clear liquid diet from GI perspective-no red products Continue PPI drip Monitor H&H If patient has continued signs of GI bleeding or increasing abdominal pain, please notify surgery team Will follow Time spent reviewing chart, seeing patient, documentation and coordination of care for the above conditions, and discussing with attending: Around 45 minutes This plan was formulated in collaboration with Dr. Harvey Please feel free to contact me with any questions or concerns. Thank you for allowing me to participate in the care of your patient. Mel Castillo APRN - DRILLING ASSISTANT on 01/02/2024 at 6:06 AM [facility] Please note that this note was generated using a voice recognition dictation software. Although every effort was made to ensure the accuracy of this automated molder pipe covering, some errors in molder pipe covering may have occurred. Associated attestation - Jen Harvey MD - 01/02/2024 6:30 PM EDT Attested: I have discussed the care of Candy Booth and I have examined the patient myselft and taken ros and hpi , including pertinent history and exam findings, with the author of this note . I have reviewed the yadav elements of all parts of the encounter with the nurse practitioner/resident. I agree with the assessment, plan and orders as documented by the above health care provider with the followi ng addendum Impression- Large gastrojejunal anastomotic ulcer with bleeding S/P endoscopic therapy Plan- Monitor H&H q daily and transfuse if Hb < 7 g/dl Continue on PPI gtt Will consider X-tack stitch for the ulcer treatment after discharge if okay with patient's bariatric surgeon More than 50% of the time was spent taking care of this patient in addition to the nurse practitioner time. That also included history taking follow-up physical examination and review of system. Electronically signed by Jen Harvey MD * Jeff Gaspar, PT - 01/01/2024 3:02 PM EDT Physical Therapy Facility/Department: [address] ONC/MED SURG Physical Therapy Initial Assessment Name: Candy Booth : 1970 Date of Service: 01/01/2024 Discharge Recommendations: Patient would benefit from continued therapy after discharge Patient Diagnosis(es): The encounter diagnosis was Syncope, unspecified syncope type. Past Medical History: has a past medical history of AAA (abdominal aortic aneurysm) (HCC), Arthritis, CAD (coronary artery disease), Chronic headache, Complex regional pain syndrome, Depression, JESSICA (generalized anxiety disorder), History of blood transfusion, Left tibial fracture, MVP (mitral valve prolapse), Neuropathy, Obesity - status post gastric bypass, Peptic ulcer disease, PONV (postoperative nausea and vomiting), Primary hypertension, and Small bowel obstruction - due to adhesions. Past Surgical History: has a past surgical history that includes Upper gastrointestinal endoscopy; Gastric bypass surgery; laparoscopy; Foot surgery; pr colonoscopy flx dx w/collj spec when pfrmd (N/A, 10/20/2017); pr egd transoral control bleeding any method (Left, 10/19/2017); Colon surgery; Colon oscopy (2017); Endoscopy, colon, diagnostic (2017); Appendectomy (1993); eye surgery (2001); Dilatation, esophagus; Hysterectomy (1993); Cosmetic surgery (2009); pr lamnotmy incl w/dcmprsn nrv root 1intrspc lumbr (N/A, 02/09/2018); and Esophagogastroduodenoscopy. Assessment Body Structures, Functions, Activity Limitations Requiring Skilled Therapeutic Intervention: Decreased body mechanics;Decreased strength;Decreased endurance;Increased pain Assessment: The pt transferred supine to sit with CGA. She declined an attempt to transfer to standing stating pancho she was in too much pain and that she was dizzy. She could benefit from a continuation of PT for gait , strengthening and functional mobility prior to her DC Therapy Prognosis: Good Decision Making: Medium Complexity Requires PT Follow-Up: Yes Activity Tolerance Activity Tolerance: Patient limited by fatigue;Patient limited by endurance;Patient limited by pain Plan Physical Therapy Plan General Plan: (5-6x wk) Current Treatment Recommendations: Strengthening, Functional mobility training, Transfer training, Gait training, Endurance training, Stair training, Safety education & training, Therapeutic activities Safety Devices Type of Devices: Nurse notified, Left in bed, Call light within reach Restraints Restraints Initially in Place: No Restrictions Restrictions/Precautions Restrictions/Precautions: Bedrest with Bathroom Privileges Subjective General Patient assessed for rehabilitation services?: Yes Response To Previous Treatment: Not applicable Family / Caregiver Present: No Follows Commands: Within Functional Limits Subjective Subjective: The pt reported abd pain 7/10 Repositioned as able for pain relief Social/Functional History Social/Functional History Lives With: Spouse Type of Home: House Home Layout: One level Home Access: Stairs to enter without rails Entrance Stairs - Number of Steps: 3 Bathroom Shower/Tub: Tub/Shower unit Bathroom Toilet: Standard Bathroom Equipment: Grab bars in shower, Shower chair Home Equipment: Walker - Rolling Receives Help From: Family ADL Assistance: Independent Homemaking Assistance: Independent Homemaking Responsibilities: Yes Ambulation Assistance: Needs assistance Transfer Assistance: Independent Active [employer] Feeder: No Mode of Transportation: Family Occupation: On disability Additional Comments: The pt is R hand dominate. She reports numbness in both of her feet Vision/Hearing Vision Vision: Within Functional Limits Hearing Hearing: Exceptions to WFL Hearing Exceptions: Hard of hearing/hearing concerns;No hearing aid Cognition Orientation Overall Orientation Status: Within Functional Limits Cognition Overall Cognitive Status: Exceptions Arousal/Alertness: Appears intact Following Commands: Appears intact Attention Span: Impaired Memory: Appears intact Safety Judgement: Appears intact Problem Solving: Appears intact Insights: Impaired Initiation: Impaired Sequencing: Impaired Objective Temp: 98.4 F (36.9 C) Pulse: (!) 106 Heart Rate Source: Monitor Respirations: 18 SpO2: 95 % O2 Device: None (Room air) BP: 96/69 MAP (Calculated): 78 BP Location: Right upper arm BP Method: Automatic Patient Position: Semi fowlers AROM RLE (degrees) RLE AROM: WFL AROM LLE (degrees) LLE AROM : WFL AROM RUE (degrees) RUE AROM : WFL AROM LUE (degrees) LUE AROM : WFL Strength RLE Strength RLE: WFL Strength LLE Strength LLE: WFL Strength RUE Strength RUE: WFL Strength LUE Strength LUE: WFL Bed mobility Supine to Sit: Contact guard assistance Sit to Supine: Contact guard assistance Scooting: Contact guard assistance Ambulation Assistance: Contact guard assistance Distance: Supine to sit with CGA The pt declined an attempt totransfer to standing at the bedside. She reported increased abd pain and dizziness. Balance Posture: Good Sitting - Static: Good Sitting - Dynamic: Fair OutComes Score -[facility] - Mobility -[facility] Basic Mobility - Inpatient How much help is needed turning from your back to your side while in a flat bed without using bedrails?: None How much help is needed moving from lying on your back to sitting on the side of a flat bed withoutusing bedrails?: None How much help is needed moving to and from a bed to a chair?: A Little How much help is needed standing up from a chair using your arms?: A Little How much help is needed walking in hospital room?: Total How much help is needed climbing 3-5 steps with a railing?: Total -[facility] Inpatient Mobility Raw Score : 16 [facility] Inpatient T-Scale Score : 40.78 Mobility Inpatient CMS 0-100% Score: 54.16 Mobility Inpatient [facility] G-Code Modifier : CK Tinneti Score Goals Short Term Goals Time Frame for Short Term Goals: 10 visits Short Term Goal 1: transfers with SBA Short Term Goal 2: ambulated 50 ft with a RW x SBA Short Term Goal 3: ascend/descend 4 steps with SBA Short Term Goal 4: 20 min strengthening exercise program x SBA Education Patient Education Education Given To: Patient Education Provided: Role of Therapy;Plan of Care Education Method: Verbal Barriers to Learning: None Education Outcome: Verbalized understanding Therapy Time Individual Concurrent Group Co-treatment Time In 1401 Time Out 1422 Minutes 21 Jeff Gaspar PT * Francisca Barroso RN - 01/01/2024 2:09 PM EDT Notified primary about patient Hgb, complaints of dizziness and elevated HR * Suzanne Celeste MD - 01/01/2024 9:21 AM EDT Images from the original note were not included. [facility] Office: [phone] Carter Melendez DO, Anuj Lim DO, Isela Hensley DO, Jayjay Be DO, Garry Braun MD, Cher Nelson MD, Cici Meyer MD, Betty Richards MD, Tang Brewer MD, Paul Sterling MD, Sita Gee MD, Yamilet Pruett DO, Marcella Winters MD, Tanner Leonardo MD, Ibrahima Melendez DO, Michael Arellano MD, Flaco Mc DO, Suzanne Celeste MD, Hazel Morataya MD, Maura Edward MD, Renee Garnica MD, Devin Monreal MD, Frederick Salgado MD, Kvng Reed MD, Sanchez Wade MD, Dillon Barrera MD, Keli Rabago MD, Clark Mcfarlane DO, Joseph Blair DO, Ni Leung MD, Bryant Carrillo MD, Christina Mackey, DRILLING ASSISTANT, Sherri Nunes, DRILLING ASSISTANT, Cory Andrade, DRILLING ASSISTANT, Debbie Solis, IVAN,Radha Augustin, DRILLING ASSISTANT, Alyssa Judge, DRILLING ASSISTANT, Kristen Daly, DRILLING ASSISTANT, Jennifer Francis, DRILLING ASSISTANT, FAINA AlvaradoC, FAINA MoreC, Jayshree Oswald, DRILLING ASSISTANT, Oralia Fisher, DRILLING ASSISTANT, Rachel Allison, DRILLING ASSISTANT, Kerry Rodas,DRILLING ASSISTANT, Rashmi Torres, [facility], Jaky Green, DRILLING ASSISTANT, Damaris Chauhan, DRILLING ASSISTANT, Carol Gimenez, DRILLING ASSISTANT [facility] IN-PATIENT SERVICE [facility] Progress Note 01/01/2024 9:21 AM Name: Candy Booth Acct: [id number] Room: [facility] [facility]: 2 Admit Date: 12/30/2023 5:58 PM PCP: Maureen Mitchell MD Code Status: Full Code Subjective: C/C: No chief complaint on file. Interval History Status: not changed. Patient had EGD done this morning. H/H pending from am. She has abdominal pain which is unchanged. No blood in stools yesterday or today. EGD noted. Stat h/h ordered. Patient on stepdown. IV protonix drip started. May need ICU transfer. Discussed with RN. Brief History: Candy Booth is a 53 y.o. female w/ HTN, ascending aortic aneurysm (4.1cm), VHD (echo 05/2023- with apical WMA, mild- moderate MR/TR, mild-mod AI w/ severe LVOT w/ valsalva), prior gastric bypass 2007 with history of prior GI bleed 2018 w/ anastomotic ulcer (w/ NSAID use at the time) w/ chronic pain who initially presented to [facility] on 12/28/2023 status post syncope with acute rectal bleeding. Patient treated conservatively with IV PPI with suspected GI bleed status post 5 units PRBCs and recommended for transfer for further GI workup to [facility] for the management of GI bleed. Patient does describe recent ENT infection with left cervical painful lymphadenopathy status post 10-day course of clindamycin in mid to late November. Patient states she had worsening indigestion with nausea which she attributed to the clindamycin. She describes acute diarrhea with rectal bleeding complicated by near syncope/syncope and collapse prior to presenting to [place] ED. Patient admits to prior history of GI bleed initially stating it was 4 to 5 years ago. However records demonstrate GI bleed in 2018 with EGD/colonoscopy at that time. She did follow-up with GI, suspected anastomotic ulcer and treated conservatively, recommended avoidance of NSAIDs. Patient admits that she is not take any further NSAIDs. She admits to prior intolerance with multiple PPIs, states she only felt benefit with Dexilant but had issues with insurance denial, was unable to afford co-payand subsequently discontinued regular PPI use years ago. States she does intermittently use Dexilant with occasional flares, denies any recent use. Patient attributes worsening GI symptoms, bleeding with recent clindamycin use. Denies fevers or chills. Denies abdominal pain but does describe worsening indigestion with heartburn. + Worsening nausea. Denies emesis. + Ongoing intermittent rectal bleeding with persistent maroon-colored stools, 4x /24 hours with most recent bowel movement around 2/3 AM. Patient does follow with cardiology [facility]. Was recommended for antihypertensive regimen but states that the legal receptionist did not get the prescription sent to her pharmacist and she got medication filled. Noted initially hypertensive with blood pressures in the 180s with history of ascending aortic aneurysm, +LVOT on recent echo 05/2023. +Remote history of paroxysmal A-fib but denies history of stroke, not currently on anticoagulation,antiplatelet therapy or NSAIDs. Review of systems is limited as patient is an overall vague, limited historian. She does struggle with chronic pain syndrome with chronic debility, weakness with poor performance status at home with chronic lumbago, osteoarthritis, severe anxiety with history of panic attacks who follows with pain management on oxycodone/Xanax for symptomatic control. Status post resuming. Review of Systems: Review of Systems Constitutional: Positive for fatigue. Negative for chills and fever. Respiratory: Positive for cough. Negative for shortness of breath and wheezing. Cardiovascular: Negative for chest pain, palpitations and leg swelling. Gastrointestinal: Positive for abdominal pain. Negative for abdominal distention, blood in stool and diarrhea. Neurological: Negative for dizziness, syncope, weakness and headaches. Medications: Allergies: Allergies Allergen Reactions Nsaids Other (See Comments) Other reaction(s): Other: See Comments Has not taken due to gastric bypass surgery in the past GI bleed Milk (Cow) Other (See Comments) Had gastric bypass in the past, GI bleed history Acetaminophen-Codeine Other (See Comments) Sleep apnea Codeine Other (See Comments) Intolerance, sleep apnea Current Meds: Scheduled Meds: [JUL Hold] potassium chloride 10 mEq IntraVENous Q1H sodium chloride flush 5-40 mL IntraVENous 2 times per day [Jul] pantoprazole 40 mg Oral QAM AC [Jul] carvedilol 6.25 mg Oral BID WC [Jul] sodium chloride flush 5-40 mL IntraVENous 2 times per day [Jul] pregabalin 200 mg Oral TID RT [Jul] sertraline 200 mg Oral Nightly Continuous Infusions: sodium chloride [Jul] pantoprazole 8 mg/hr (01/01/24 0746) [Jul] sodium chloride 75 mL/hr at 12/31/23 1831 [Jul] sodium chloride PRN Meds: [JUL Hold] potassium chloride OR [Jul] potassium alternative oral replacement OR [Jul] potassium chloride, naloxone 0.4 mg in 10 mL sodium chloride syringe, sodium chloride flush, sodium chloride, fentanNYL, fentanNYL, ondansetron, diphenhydrAMINE, [Jul] ipratropium0.5 mg-albuterol 2.5 mg, [Jul] guaiFENesin, [JUL Hold] benzonatate, [JUL Hold] sodium chlorideflush, [JUL Hold] sodium chloride, [JUL Hold] ondansetron OR [JUL Hold] ondansetron, [Jul]acetaminophen OR [Jul] acetaminophen, [JUL Hold] ALPRAZolam, [JUL Hold] oxyCODONE OR [JUL Hold] oxyCODONE, [JUL Hold] HYDROmorphone, [JUL Hold] labetalol, [JUL Hold] hydrALAZINE Data: Past Medical History: has a past medical history of AAA (abdominal aortic aneurysm) (HCC), Arthritis, CAD (coronary artery disease), Chronic headache, Complex regional pain syndrome, Depression, JESSICA (generalized anxiety disorder), History of blood transfusion, Left tibial fracture, MVP (mitral valve prolapse), Neuropathy, Obesity - status post gastric bypass, Peptic ulcer disease, PONV (postoperative nausea and vomiting), and Small bowel obstruction - due to adhesions. Social History: reports that she has been smoking cigarettes. She started smoking about 9 years ago. She has a 9.6 pack-year smoking history. She has never used smokeless tobacco. She reports that she does not drink alcohol. Family History: Family History Problem Relation Age of Onset Cancer Mother renal, right kidney removed Other Mother thyroidectomy, neck fusion Heart Disease Father 55 Arthritis Father Coronary Art Dis Father Cancer Father lung Other Sister thryoidectomy, Arthritis Sister cervical fusion No Known Problems Brother Other Daughter mitral valve prolapse, low albumin Vitals: BP (!) 164/95 Pulse 81 Temp 97.7 F (36.5 C) (Temporal) Resp 21 Ht 1.702 m (5' 7 ) Wt 86 kg (189 lb 9.5 oz) SpO2 95% BMI 29.69 kg/m Temp (24hrs), Av.9 F (36.6 C), Min:97 F (36.1 C), Max:98.6 F (37 C) No results for input(s): POCGLU in the last 72 hours. I/O (24Hr): Intake/Output Summary (Last 24 hours) at 01/01/2024 0921 Last data filed at 01/01/2024 0810 Gross per 24 hour Intake 500 ml Output 4 ml Net 496 ml Labs: Hematology: Recent Labs 12/31/23 0046 12/31/23 0727 12/31/23 1222 01/01/24 0144 01/01/24 0411 01/01/24 0630 WBC 5.2 -- -- -- 4.9 -- RBC 3.20* -- -- -- 3.16* -- HGB 10.9* 11.2* < > 10.3* 10.6* DUPLICATE ORDER HCT 33.2* 33.1* < > 31.8* 32.5* DUPLICATE ORDER MCV 103.8* -- -- -- 102.8 -- MCH 34.1* -- -- -- 33.5 -- MCHC 32.8 -- -- -- 32.6 -- RDW 18.8* -- -- -- 18.6* -- PLT 197 -- -- -- 220 -- MPV 9.2 -- -- -- 9.5 -- INR 0.9 0.9 -- -- -- -- < > = values in this interval not displayed. Chemistry: Recent Labs 12/31/236 01/01/24410 NA 135* 139 K 3.7 3.3* CL 105 107 CO2 20 23 GLUCOSE 89 86 BUN 2* <1* CREATININE 0.4* 0.3* MG 1.9 2.0 ANIONGAP 10 9 LABGLOM >90 >90 CALCIUM 8.5* 8.5* CAION 1.23 -- PHOS 3.7 -- LACTACIDWB 1.0 -- Recent Labs 12/31/234501/01/24410 TSH 6.81* -- AST 47* 40* ALT 13 10 LDH 168 -- ALKPHOS 174* 161* BILITOT 0.4 0.3 BILIDIR 0.2 <0.2 ABG:No results found for: POCPH , PHART , PH , POCPCO2 , DMU9YKS , PCO2 , POCPO2 , PO2ART , PO2 , POCHCO3 , YYT6NGI , HCO3 , NBEA , PBEA , BEART , BE , THGBART , THB , CSZ4FUR , WCJN4SKG , Q5HOPJJE , O2SAT , FIO2 No results found for: SPECIAL No results found for: CULTURE Radiology: No results found. Physical Examination: Physical Exam Vitals reviewed. Constitutional: General: She is not in acute distress. Appearance: She is ill-appearing. She is not diaphoretic. HENT: Head: Normocephalic and atraumatic. Eyes: General: No scleral icterus. Extraocular Movements: Extraocular movements intact. Conjunctiva/sclera: Conjunctivae normal. Pupils: Pupils are equal, round, and reactive to light. Cardiovascular: Rate and Rhythm: Regular rhythm. Tachycardia present. Heart sounds: No gallop. Pulmonary: Effort: Pulmonary effort is normal. Breath sounds: Normal breath sounds. No wheezing. Abdominal: General: Bowel sounds are normal. Palpations: Abdomen is soft. Tenderness: There is no abdominal tenderness. Musculoskeletal: Right lower leg: No edema. Left lower leg: No edema. Neurological: General: No focal deficit present. Mental Status: She is alert and oriented to person, place, and time. Assessment: Hospital Problems Last Modified POA * (Principal) GI bleed 12/30/2023 Yes Acute blood loss anemia 01/01/2024 Yes Acute gastrojejunal anastomotic ulcer 01/01/2024 Yes Hypotension due to blood loss 01/01/2024 Yes Syncope 12/31/2023 Yes Hyponatremia 01/01/2024 Yes Hypokalemia 01/01/2024 Yes Moderate aortic regurgitation 01/01/2024 Yes History of Linsey-en-Y gastric bypass 01/01/2024 Yes Primary hypertension 01/01/2024 Yes Chronic prescription opiate use 01/01/2024 Yes Other specified anxiety disorders 01/01/2024 Yes Cholelithiasis 01/01/2024 Yes Plan: Acute gastrojejunal anastomotic ulcer - on IV protonix drip. H/H q 6 hours. T/C. Transfuse if hg below 8. Transfer to ICU if any bleeding. IR for possible embolization per GI notes Acute blood loss anemia - as above. Monitor closley. Hypokalemia - replace potassium Hyponatremia - resolved Moderate AI/MR - stable. No LVH or heart failure. Monitor Chronic opiate use- continue home dose HTN - on Coreg DVT prophylaxis - on hold Suzanne Celeste MD 01/01/2024 9:21 AM * Kadi Slaughter RD - 12/31/2023 2:38 PM EDT Comprehensive Nutrition Assessment Type and Reason for Visit: Initial, Positive Nutrition Screen Nutrition Recommendations/Plan: Continue to advance diet as tolerated Monitor PO intake, diet tolerance, wt, labs Malnutrition Assessment: Malnutrition Status: Moderate malnutrition (12/31/23 1437) Context: Chronic Illness Findings of the 6 clinical characteristics of malnutrition: Energy Intake: 75% or less estimated energy requirements for 1 month or longer Weight Loss: Greater than 7.5% over 3 months (8% in 1-2 months) Body Fat Loss: No significant body fat loss Muscle Mass Loss: No significant muscle mass loss Fluid Accumulation: No significant fluid accumulation Informatica Developer Strength: Not Performed Nutrition Assessment: Pt admit from [facility] for management of GI bleed. Seen for positive nutrition screen of wt loss and poor appetite - due to GI. Hx of GI bleed goes back 4-5 years per pt, per documentation was in 2018. Pt resting in bed at time of visit and having stomach pain. Diet advanced to clear liquids adn pt stated she is tolerating them. Stated at home she drinks muscle milk protein shakes adn does not like ensures as she said they're too sweet. Typically eats 1 meal a day and states this is normal for her. Pt thinks the poor appetite is r/t adhesion growth . Pt has noticed wt loss as her clothes are noticeably looser fitting. 8% wt loss in 1-2 months. is her primary caregiver. No edema. LBM 8/6 - was documented as watery with red streaks. Sodium 135 - being replaced with sodium c hloride continuously, Calcium 8.5. Pt currently NPO. Nutrition Related Findings: Meds/labs reviewed Wound Type: None Current Nutrition Intake & Therapies: Average Meal Intake: NPO Average Supplements Intake: NPO ADULT DIET; Clear Liquid; No red dye Diet NPO Exceptions are: Sips of Water with Meds Anthropometric Measures: Height: 170.2 cm (5' 7 ) [place] Body Weight (IBW): 135 lbs (61 kg) Admission Body Weight: 83.5 kg (184 lb) Current Body Weight: 83.5 kg (184 lb), IBW. Weight Source: Not Specified Current BMI (kg/m2): 28.8 Usual Body Weight: 90.7 kg (200 lb) % Weight Change (Calculated): -8 Weight Adjustment For: No Adjustment BMI Categories: Overweight (BMI 25.0-29.9) Estimated Daily Nutrient Needs: Energy Requirements Based On: Kcal/kg Weight Used for Energy Requirements: Current Energy (kcal/day): 0103-4607 kcal/d Weight Used for Protein Requirements: Current Protein (g/day): 85-130 g/d Method Used for Fluid Requirements: 1 ml/kcal Fluid (ml/day): per MD Nutrition Diagnosis: Inadequate oral intake related to altered GI function as evidenced by NPO or clear liquid status due to medical condition Nutrition Interventions: Food and/or Nutrient Delivery: Continue Current Diet Nutrition Education/Counseling: No recommendation at this time Coordination of Nutrition Care: Continue to monitor while inpatient Plan of Care discussed with: pt Goals: Previous Goal Met: (Goal set) Goals: Meet at least 75% of estimated needs, prior to discharge Specify Other Goals: within 5 days of admission Nutrition Monitoring and Evaluation: Behavioral-Environmental Outcomes: None Identified Food/Nutrient Intake Outcomes: Diet Advancement/Tolerance Physical Signs/Symptoms Outcomes: Biochemical Data, GI Status, Diarrhea, Nutrition Focused PhysicalFindings, Weight Discharge Planning: No discharge needs at this time Kadi Slaughter MS, RDN, LDN Contact: [phone] * Suzanne Celeste MD - 12/31/2023 1:24 PM EDT Images from the original note were not included. [facility] Office: [phone] Carter Melendez DO, Anuj Lim DO, Isela Hensley DO, Jayjay Be DO, Garry Braun MD, Cher Nelson MD, Ciic Meyer MD, Betty Richards MD, Tang Brewer MD, Paul Sterling MD, Sita Gee MD, Yamilet Pruett DO, Marcella Winters MD, Tanner Leonardo MD, Ibrahima Melendez DO, Michael Arellano MD, Flaco Mc DO, Suzanne Celeste MD, Hazel Morataya MD, Maura Edward MD, Renee Garnica MD, Devin Monreal MD, Frederick Salgado MD, Kvng Reed MD, Sanchez Wade MD, Dillon Barrera MD, Keli Rabago MD, Clark Mcfarlane DO, Joseph Blair DO, Ni Leung MD, Bryant Carrillo MD, Christina Mackey CNP, Sherri Nunes CNP, Cory Andrade CNP, Debbie Solis DNP,Radha Augustin CNP, Alyssa Judge, DRILLING ASSISTANT, Kristen Daly, DRILLING ASSISTANT, Jennifer Francis, DRILLING ASSISTANT, Neli Bolanos, FAINAC, Shruthi Carlos, FAINAC, Jayshree Oswald, DRILLING ASSISTANT, Johanny Henderson, DRILLING ASSISTANT, Oralia Fisher, DRILLING ASSISTANT, Rachel Allison,DRILLING ASSISTANT, Kerry Rodas, DRILLING ASSISTANT, Rashmi Torres, MATERIAL CONTROLLER, Jaky Green, DRILLING ASSISTANT, Damaris Chauhan, DRILLING ASSISTANT, Carol Gimenez, DRILLING ASSISTANT [facility] IN-PATIENT SERVICE [facility] Visit Note For more detailed information please refer to the progress note of the day 12/31/2023 1:24 PM Name: Candy Booth Acct: [id number] Room: 0441/044-01 Day: 1 Admit Date: 12/30/2023 5:58 PM PCP: Maureen Mitchell MD Code Status: Full Code Pt vitals were reviewed New labs were reviewed Patient was seen. She had 1 BM this am which was bloody. Hemoglobin stable. She will have EGD in am. Updated plan : GI bleed - patient to be seen by GI. Monitor h/h. S/p 5 u PRBC at [facility]. EGD today. Currently tolerating clear liquid diet. On IV protonix drip. Transfuse as needed. Acute diarrhea - stool studies pending. C diff negative. Monitor I/O's Acute blood loss anemia - s/p 5 U PRBC. She has macrocytosis. B12 borderline. H/o gastric bypass. Will start B12. Moderate mitral and aortic regurgitation - Echo reviewed. LV function wnl. She has been evaluated by [facility] cardiology and had CTA for dilated aortic root and abnormal echo. CTA done- minimal CAD.dilated aortic root 39mm. HTN - on Coreg. Increase dose as BP still high and tachycardia. May switch to Toprol XL if HR not controlled. EKG ordered. Cholelithiasis - no acute cholecystitis per US. No CBD dilatation Anxiety disorder - on Celexa Hyponatremia - sodium 135. Monitor Chronic lumbar pain - on Opiates filler leaf cutter long and Lyrica. Home doses continued. DVT prophylaxis- no chemical AC due to GI bleed. SCD's in bed Patient at low risk for EGD. Suzanne Celeste MD 12/31/2023 1:24 PM documented in [facility] NotePROCEDURE: IR EMBOLIZATION VASCULAR ANY HEMORRHAGE 01/01/2024 HISTORY: [...] a 0.035 inch wire and 5 [place] African introducer sheath. A 5 [place] Bren catheter was then used to selectively catheterize the celiac artery and digital angiography was performed in AP and oblique projections. Subsequently, several different catheters were used to attempt selective catheterization of the left gastric artery, ultimately successful with a 5 [place] African Cobra catheter. Digital angiography of the left [...] Signed by: Nasir Martinez MD 01/02/24 [facility] resultMer[facility] NotePROCEDURE: IR EMBOLIZATION VASCULAR ANY HEMORRHAGE 01/01/2024 HISTORY: [...] a 0.035 inch wire and 5 [place] African introducer sheath. A 5 [place] Bren catheter was then used to selectively catheterize the celiac artery and digital angiography was performed in AP and oblique projections. Subsequently, several different catheters were used to attempt selective catheterization of the left gastric artery, ultimately successful with a 5 [place] Cobra catheter. Digital angiography of the left [...] branch abnormality/other treatable lesion at this time. [facility] RIS [id number] Miscellaneous Notes* Result Encounter Note - Yossi Hunter MD - 07/15/2023 11:15 AM EST CTA shows very minimal atherosclerosis with no significant stenosis. Recommend routine follow-up and continue to current treatment. [facility] Work Phone: 1(487) 994-458902-20-2024 Nurse Note* Rosaline Vásquez RN - 07/15/2023 11:15 AM EST Post CCTA pt denies feeling dizzy or lightheaded, denies headache. Steady on feet, skin warm pink and dry. Pt verbalized understanding of increased water intake x24 hours, educated on side effects ofmedications. HL removed with tip intact, manual pressure held until hemostasis achieved, 2x2 and coban to site. Pt DC home to self care with family [facility] Work Phone: 1(922) 528-458202-20-2024 Nurse Note* Rosaline Vásquez RN - 07/15/2023 11:15 AM EST Post CCTA pt denies feeling dizzy or lightheaded, denies headache. Steady on feet, skin warm pink and dry. Pt verbalized understanding of increased water intake x24 hours, educated on side effects ofmedications. HL removed with tip intact, manual pressure held until hemostasis achieved, 2x2 and coban to site. Pt DC home to self care with family * Rosaline Vásquez RN - 07/15/2023 11:08 AM EST Pt. Unable to tolerate deep breathing excercises for HR control. She states that holding her breathmakes her chest hurt documented in this encounterUnAs[facility] Work Phone: 1(145) 680-538302-20-2024 Nurse Note* Rosaline Vásquez RN - 07/15/2023 11:15 AM EST Post CCTA pt denies feeling dizzy or lightheaded, denies headache. Steady on feet, skin warm pink and dry. Pt verbalized understanding of increased water intake x24 hours, educated on side effects ofmedications. HL removed with tip intact, manual pressure held until hemostasis achieved, 2x2 and coban to site. Pt DC home to self care with family * Rosaline Vásquez RN - 07/15/2023 11:08 AM EST Pt. Unable to tolerate deep breathing excercises for HR control. She states that holding her breathmakes her chest hurt documented in this encounterUnAs[facility] Work Phone: 1(350) 307-106802-20-2024 Progress note* Result Encounter Note - Yossi Hunter MD - 07/15/2023 11:15 AM EST CTA shows very minimal atherosclerosis with no significant stenosis. Recommend routine follow-up and continue to current treatment. [facility] Work Phone: 1(946) 695-271402-20-2024 Nurse Note* Rosaline Vásquez RN - 07/15/2023 11:08 AM EST Pt. Unable to tolerate deep breathing excercises for HR control. She states that holding her breathmakes her chest hurt [facility] Work Phone: 1(342) 129-384402-12-2024 Evaluation note* Encounter Date Diagnosis Assessment Notes Treatment Notes Treatment Clinical Notes Jun, Lumbar degenerative disc disease (ICD-10 - M51.36) Jun, Medication management (ICD-10 - Z79.899) [facility] Other 02-06-2024 History of Present illness Narrative* Yossi Hunter MD - 07/01/2023 2:00 PM EST [...] person, place and time. documented in this [facility] Work Phone: 1(920) 214-747302-06-2024 Instructions* Patient Instructions* Paulorenetta Bucio LPN - 07/01/2023 2:[address] Angio Stop carvedilol Start Metoprolol XL 25 mg BID 3 month visit documented in this [facility]Children[facility] Work Phone: 1(454) 601-982701-25-2024 Evaluation note* Encounter Date Diagnosis Assessment Notes Treatment Notes Treatment Clinical Notes May, Lumbar degenerative disc disease (ICD-10 - M51.36) OARRS reviewed Medications refilled Refer to Dr. Gonzalez per patient's request. May, Anxiety disorder, unspecified (ICD-10 - F41.9) Medications refilled. [facility] Other 01-08-2024 Evaluation note* Encounter Date Diagnosis Assessment Notes Treatment Notes Treatment Clinical Notes May, Lumbar degenerative disc disease (ICD-10 - M51.36) May, Anxiety disorder, unspecified (ICD-10 - F41.9) [facility] Other 01-02-2024 History of Present illness Narrative* Yossi Hunter MD - 05/27/2023 1:45 PM EST [...] person, place and time. documented in this [facility]Children[facility] Work Phone: 1(481) 537-736801-02-2024 Instructions* Patient Instructions* Paulo Bucio LPN - 05/27/2023 1:45 PM EST Follow up after testing CT Thoracic Echo documented in this [facility]Children[facility] Work Phone: 1(797) 362-187512-07-2023 Evaluation note* Encounter Date Diagnosis Assessment Notes Treatment Notes Treatment Clinical Notes Apr, Lumbar degenerative disc disease (ICD-10 - M51.36) [facility] Other 11-09-2023 Evaluation note* Encounter Date Diagnosis [...] to go to ER by calling 911. [facility] Other 11-07-2023 Evaluation note* Encounter Date Diagnosis Assessment Notes Treatment Notes Treatment Clinical Notes Mar, Lumbar degenerative disc disease (ICD-10 - M51.36) [facility] Other 10-19-2023 Evaluation note* Encounter Date Diagnosis Assessment Notes Treatment Notes Treatment Clinical Notes Feb, Anxiety disorder, unspecified (ICD-10 - F41.9) Chronic problem list refill Xanax. Patient states Xanax does completely resolve her symptoms reviewed OARRS report. Feb, Lumbar degenerative disc disease (ICD-10 - M51.36) We will request records from pain management at [place] as far as the MRI and upcoming treatment plan. Reviewed OARRS report. Discussed decreasing amount or frequency of oxycodone. Patient defers to have an upcoming MRI and plan of treatment through pain management. We will monitor further symptoms of overdosing carefully. Feb, Vitamin D deficiency (ICD-10 - E55.9) Lab order sent to [facility] per patient's request Feb, Iron deficiency anemia, unspecified iron deficiency anemia type (ICD-10 - D50.9) As above lab order sent to [facility]. Previously under the care of of Dr. Bañuelos at [facility] Feb, Medication management (ICD-10 - Z79.899) Monitor kidney and liver function based on her chronic medications. [facility] Other 09-21-2023 Evaluation note* Encounter Date Diagnosis Assessment Notes Treatment Notes Treatment Clinical Notes Jan, Anxiety disorder, unspecified (ICD-10 - F41.9) [facility] Other 09-07-2023 Evaluation note* Encounter Date Diagnosis Assessment Notes Treatment Notes Treatment Clinical Notes Jan, Lumbar degenerative disc disease (ICD-10 - M51.36) [facility] Other 08-24-2023 Evaluation note* Encounter Date Diagnosis Assessment Notes Treatment Notes Treatment Clinical Notes Dec, Anxiety disorder, unspecified (ICD-10 - F41.9) [facility] Other 08-08-2023 Evaluation note* Encounter Date Diagnosis Assessment Notes Treatment Notes Treatment Clinical Notes Dec, Lumbar degenerative disc disease (ICD-10 - M51.36) [facility] Other 07-14-2023 Evaluation note* Encounter Date Diagnosis Assessment Notes Treatment Notes Treatment Clinical Notes Nov, Lumbar degenerative disc disease (ICD-10 - M51.36) [facility] Other 06-14-2023 Evaluation note* Encounter Date Diagnosis Assessment Notes Treatment Notes Treatment Clinical Notes Oct, Lumbar degenerative disc disease (ICD-10 - M51.36) [facility] Other 04-27-2023 Evaluation note* Encounter Date Diagnosis Assessment Notes Treatment Notes Treatment Clinical Notes Aug, Left foot pain (ICD-10 - M79.672) Aug, Migraine without status migrainosus, not intractable, unspecified migraine type (ICD-10 - G43.909) Aug, Anxiety disorder, unspecified (ICD-10 - F41.9) Aug, Depression, unspecified (ICD-10 - F32.A) [facility] Other 04-18-2023 Evaluation note* Encounter Date Diagnosis Assessment Notes Treatment Notes Treatment Clinical Notes Aug, Lumbar degenerative disc disease (ICD-10 - M51.36) [facility] Other 03-07-2023 Evaluation note* Encounter Date Diagnosis [...] Pain in left leg (ICD-10 - M79.605) [facility] Other 03-07-2023 Evaluation note* Encounter Date Diagnosis [...] bandaid and further cushioning on L elbow. [facility] Other 06-16-2021 NoteHNO ID: [id number] Author: Ariana Matute APRN.SHAUNA Service: ? Author Type: Nurse Practitioner Type: Progress Notes Filed: 11/08/2020 3:37 PM Note Text: NAME: Candy Booth CLINIC NO.: [id number] DATE OF SERVICE: November 08, 2020 Referring [...] pill endoscopy. 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 She has primary complaints of fatigue but [...] as needed. sertraline ( (more content not included)...[facility]05-19-2021 NoteHNO ID: [id number] Author: Saritha Amaya MD Service: ? Author Type: Physician Type: Progress Notes Filed: 10/21/2020 6:59 PM Note Text: NAME: Candy Booth [facility] NO.: [id number] DATE OF SERVICE: October 11, 2020 Referring [...] pill endoscopy. 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 She has primary complaints of fatigue but [...] mg tablet Take 1 (more content not included)...[facility] No data available for this section General Surgery Karyn Evaluation noteNo InformationNort [employer] Other Evaluation noteNort [employer] Other Evaluation note* Diagnosis Shortness of breath Essential hypertension Unspecified essential hypertension BMI 32.0-32.9,adult Smoker Tobacco use disorder Heart valve disease Endocarditis, valve unspecified, unspecified cause Dizziness Dizziness and giddiness Dilation of aorta (CMS/HCC) documented in this encounter [facility] Work Phone: Evaluation note* Diagnosis Shortness of breath Heart valve disease Endocarditis, valve unspecified, unspecified cause Dizziness Dizziness and giddiness Dilation of aorta (CMS/HCC) documented in this encounter [facility] Work Phone: Evaluation note* Diagnosis Angina pectoris, unstable (CMS/HCC)- Primary Intermediate coronary syndrome Dilation of aorta (CMS/HCC) Essential hypertension Unspecified essential hypertension Heart valve disease Endocarditis, valve unspecified, unspecified cause Shortness of breath Smoker Tobacco use disorder BMI 32.0-32.9,adult documented in this encounter [facility] Work Phone: Evaluation note* Diagnosis Essential hypertension Unspecified essential hypertension Shortness of breath Angina pectoris, unstable (CMS/HCC) Intermediate coronary syndrome documented in this encounter [facility] Work Phone: Evaluation note* Diagnosis Essential hypertension Unspecified essential hypertension Shortness of breath Angina pectoris, unstable (CMS/HCC) Intermediate coronary syndrome documented in this encounter [facility] Work Phone: Evaluation note* Diagnosis Onset Date Resolution Status Edema acute HTN (hypertension) acute [facility] Work Phone: Evaluation note* Diagnosis Onset Date Resolution Status Anxiety acute Chronic lumbar pain acute Edema acute HTN (hypertension) acute Lumbar degenerative disc disease acute Peripheral neuropathic pain acute Skin ulcer of elbow acute Anxiety acute Chronic pain syndrome acute Encounter for palliative care acute Peripheral neuropathic pain acute [facility] Work Phone: Evaluation note* Diagnosis Onset Date Resolution Status Anxiety acute Chronic lumbar pain acute Edema acute HTN (hypertension) acute Lumbar degenerative disc disease acute Peripheral neuropathic pain acute Skin ulcer of elbow acute Anxiety acute Chronic pain syndrome acute Encounter for palliative care acute Anxiety acute Chronic pain syndrome acute [facility] Work Phone: Evaluation note* Diagnosis Onset Date Resolution Status Anxiety acute Chronic lumbar pain acute Edema acute HTN (hypertension) acute Lumbar degenerative disc disease acute Peripheral neuropathic pain acute Skin ulcer of elbow acute Anxiety acute Chronic pain syndrome acute Encounter for palliative care acute Anxiety acute Chronic pain syndrome acute Chronic pain syndrome acute Peripheral neuropathic pain acute [facility] Work Phone: Evaluation note* Diagnosis Onset Date Resolution Status Anxiety acute Chronic pain syndrome acute Anxiety acute Chronic pain syndrome acute Depression acute Impaired mobility and ADLs a cute Peripheral neuropathic pain acute Anxiety acute Chronic pain syndrome acute Depression acute Peripheral neuropathic pain acute [facility] Work Phone: Evaluation note* Diagnosis Onset Date Resolution Status Anxiety acute Chronic pain syndrome acute Anxiety acute Chronic pain syndrome acute Depression acute Impaired mobility and ADLs a cute Peripheral neuropathic pain acute Anxiety acute Chronic pain syndrome acute [facility] Work Phone: Evaluation note* Diagnosis Onset Date Resolution Status Anxiety acute Chronic pain syndrome acute Acute parotitis acute Lumbar degenerative disc disease acute Peripheral neuropathic pain acute Anemia due to blood loss acu te [facility] Work Phone: Evaluation note* Diagnosis Onset Date Resolution Status Anxiety acute Chronic pain syndrome acute Acute parotitis acute Lumbar degenerative disc disease acute Peripheral neuropathic pain acute Anemia due to blood loss acu te Chronic gastrojejunal anastomotic ulcer acute Weakness acute [facility] Work Phone: Evaluation note* Diagnosis Onset Date Resolution Status Anxiety acute Chronic pain syndrome acute Acute parotitis acute Lumbar degenerative disc disease acute Peripheral neuropathic pain acute Anemia due to blood loss acu te Chronic gastrojejunal anastomotic ulcer acute Weakness acute Cellulitis of left foot acut e Left foot pain acute [facility] Work Phone: Evaluation note* Diagnosis Onset Date Resolution Status Anemia due to blood loss acu te Chronic gastrojejunal anastomotic ulcer acute Weakness acute Cellulitis of left foot acut e Left foot pain acute Anxiety acute Chronic pain syndrome acute Depression acute Left foot pain acute Anxiety acute Chronic pain syndrome acute [facility] Work Phone: Evaluation note* Diagnosis Pre-operative clearance Unspecified pre-operative examination Pre-op examination Heart valve disease Endocarditis, valve unspecified, unspecified cause Dilation of aorta (CMS-HCC) Essential hypertension Unspecified essential hypertension Smoker Tobacco use disorder documented in this encounter [facility] Work Phone: Evaluation note* Diagnosis Heart valve disease Endocarditis, valve unspecified, unspecified cause Dilation of aorta (CMS-HCC) Essential hypertension Unspecified essential hypertension BMI 32.0-32.9,adult Smoker Tobacco use disorder documented in this encounter [facility] Work Phone: Evaluation note* Diagnosis Lumbar stenosis with neurogenic claudication- Primary Spinal stenosis, lumbar region, with neurogenic claudication Hypokalemia Hypopotassemia Primary hypertension Unspecified essential hypertension [facility]* Diagnosis GI bleed- Primary Hemorrhage of gastrointestinal tract, unspecified Syncope, unspecified syncope type Syncope Syncope and collapse Acute blood loss anemia Acute posthemorrhagic anemia Hypokalemia Hypopotassemia Hypotension due to blood loss Other specified hypotension Moderate aortic regurgitation Aortic valve disorders History of Linsey-en-Y gastric bypass Bariatric surgery status Acute gastrojejunal anastomotic ulcer Acute gastrojejunal ulcer without mention of hemorrhage, perforation, or obstruction Chronic prescription opiate use Other specified anxiety disorders Primary hypertension Unspecified essential hypertension Hyponatremia Hyposmolality and/or hyponatremia Cholelithiasis Calculus of gallbladder without mention of cholecystitis or obstruction Gastrojejunal ulcer with hemorrhage Chronic or unspecified gastrojejunal ulcer with hemorrhage, without mention of obstruction documented [facility] this [facility] Narrative - Reported* Type Description Date [...] Surgical History diskectomy Hospitalization History see above [employer] Other History general Narrative - ReportedBowie [facility] [facility] Other Hospital Discharge instructions No data available for this section General Surgery Karyn Progress note No data available for this section General Surgery [place] Reason for referral (narrative)No reason for [facility] Reason for visit Narrativereferral for pain management / orthoBowie [facility] [facility] Other Summary Purpose Family History Relationship Condition [...] Recorded Date/ Time Advance Directives No September 21, 024 2:41pm Advance Directive Response Recorded Date/ Time Advance Directives No September 21, 024 1:41pm Advance Directive Response Recorded Date/ Time Advance Directives No April 27, 2024 4:02pm Documents on File Type Date Recorded Patient Home Health Caregiver Expl anation ACP-Advance Directive 10/19/2017 4:34 PM Date Activated Date Inactivated Comments 06/08/2024 12:06 PM Date Activated Date Inactivated Comments 01/06/2024 9:27 AM 01/11/2024 3:09 PM Date Activated Date Inactivated Comments 12/30/2023 6:19 PM 01/05/2024 9:22 PM Date Activated Date Inactivated Comments 10/19/2017 8:31 AM 10/20/2017 8:05 PM Date Activated Date Inactivated Comments 10/18/2017 8:17 PM 10/19/2017 8:31 AM Date Activated Date Inactivated Comments 12/30/2023 6:19 PM Date Activated Date Inactivated Comments 10/19/2017 8:31 AM 10/20/2017 8:05 PM Date Activated Date Inactivated Comments 10/18/2017 8:17 PM 10/19/2017 8:31 AM Advance Directive Response Recorded Date/ Time Advance Directives No April 27, 2024 5:02pm Reason for Referral Specialty Diagnoses / Procedures Referred By Contac t Referred To Contact Radiology Diagnoses Essential hypertension Shortness of breath Angina pectoris, unstable (CMS/HCC) Procedures CT angio coronary art with heartflow if score >30% Yossi Hunter MD [address] [facility], [address] [address] Referral ID Status Reason Start Date Expiration Date Visits Requested Visits Authorized [id number] Pending Review Perform Procedure 07/01/2023 06/30/2024 1 1 Reason *FU 07/07 Lumbar D DD and radiculopathy Diagnosis 1 Lumbar degenerative disc disease (M51.36) Referral Organization [facility] C ricardo Referring Provider First Name Maureen Referring Provider Last Name Mando Referring Provider Specialty Family [facility] Referred Organization [facility] Referred Provider Darlene Gonzalez Referred Address ,[place], [place],[address] Referred Provider Specialty Orthopedic S urgery Referral Priority Routine General Notes Joselyn Zee 12:44:56 PM >received today, notes locked, attachments made, referral faxed Specialty Diagnoses / Procedures Referred By Norberto abernathy Referred To Contact Radiology Diagnoses Heart valve disease Dilation of aorta (CMS/HCC) Procedures CT chest wo IV contrast Yossi Hunter MD [address] [facility], [address] [address] Referral ID Status Reason Start Date Expiration Date Visits Requested Visits Authorized [id number] Pending Review Perform Procedure 05/27/2023 05/26/2024 1 1 Specialty Diagnoses / Procedures Referred By Norberto abernathy Referred To Contact Cardiology Diagnoses Shortness of breath Heart valve disease Dizziness Dilation of aorta (CMS/HCC) Procedures Transthoracic Echo (TTE) Complete RI ECHO TTHRC R-T 2D W/WOM-MODE COMPL SPEC&COLR D Yossi Hunter MD [address] [facility], [address] [address] Referral ID Status Reason Start Date Expiration Date Visits Requested Visits Authorized [id number] Pending Review Perform Procedure 05/27/2023 05/26/2024 1 [...] blood loss Chronic gastrojejunal anastomotic ulcer Weakness Chief Complaint Patient here for a 2 month f/u in office painful bump behind ear Hospital f/u cellulitis in L foot CC Adult Risk Stratification Broken [place]et Reason for Visit Anxiety Chronic pain syndrome Acute parotitis Lumbar degenerative disc disease Peripheral neuropathic pain Anemia due to blood loss Chronic gastrojejunal anastomotic ulcer Weakness Cellulitis of left foot Left foot pain Chief Complaint Hospital f/u cellulitis in L foot CC Adult Risk Stratification Bro[place]et Patient here for a f/u in office Reason for Visit Anemia due to blood loss Chronic gastrojejunal anastomotic ulcer Weakness Cellulitis of left foot Left foot pain Anxiety Chronic pain syndrome Depression Left foot pain Anxiety Chronic pain syndrome Chief Complaint Admit Date Hospital f/u January 20, 2024 1: 48pm cellulitis in L foot January 30, 2024 11:15am CC Adult Risk Stratification February 12:28pm Broken Feet February 26, 2024 2: 56pm Patient here for a f/u in office [facility] 2023 3:27pm surgical clearance, Dr Vegas/Lumb/dec omp/fusion April 08, 2024 2:57pm Reason for Visit Admit Date Anemia due to blood loss January 19 1:48pm Chronic gastrojejunal anastomotic ulcer January 20, 2024 1:48pm Weakness January 20, 2024 1: 48pm Cellulitis of left foot January 29, 2 024 11:15am Left foot pain January 30, 2024 11:15am Anxiety February 26, 2024 2: 56pm Chronic pain syndrome February 26, 2024 2:56pm Depression February 26, 2024 2: 56pm Left foot pain February 26, 2024 2: 56pm Anxiety March 30, 2024 3 :27pm Chronic pain syndrome March 30, 2024 3:27pm Chief Complaint Admit Date Patient here for a f/u in office 2023 3:27pm surgical clearance, Dr Vegas/Chrissy/dec omp/fusion April 08, 2024 2:57pm Discuss surgery/UA April 29, 2024 3 :15pm E87.1 R30.0 April 29, 2024 4 :00pm Patient here for a f/u via phone May 28, 2024 10:05am Reason for Visit Admit Date Anxiety March 30, 2024 3 :27pm Chronic pain syndrome March 30, 2024 3:27pm Anxiety April 08, 2024 2:57pm Chronic pain syndrome April 08 2:57pm Lumbar degenerative disc disease [facility] r 2023 2:57pm Peripheral neuropathic pain March 2:57pm Preoperative examination April 08, 2024 2:57pm Dysuria April 29, 2024 3 :15pm Hyponatremia April 29, 2024 3 :15pm Chief Complaint Admit Date surgical clearance, Dr Vegas/Chrissy/dec omp/fusion April 08, 2024 2:57pm Discuss surgery/UA April 29, 2024 3 :15pm E87.1 R30.0 April 29, 2024 4 :00pm Patient here for a f/u via phone May 28, 2024 10:05am Amb Documentation June 11, 2024 8 :52am Patient here for a f/u June 30 4:05pm Reason for Visit Admit Date Anxiety April 08, 2024 2:57pm Chronic pain syndrome April 08 2:57pm Lumbar degenerative disc disease [facility] r 2023 2:57pm Peripheral neuropathic pain March 2:57pm Preoperative examination April 08, 2024 2:57pm Dysuria April 29, 2024 3 :15pm Hyponatremia April 29, 2024 3 :15pm Chief Complaint Admit Date Patient here for a f/u via phone May 28, 2024 10:05am Amb Documentation June 11, 2024 8 :52am Patient here for a f/u June 30 4:05pm Patient is here for a 1 month f/u in off [place] July 27, 2024 4:03pm Reason for Visit Admit Date Anxiety July 27, 2024 4:03 pm Chronic pain syndrome July 27, 2024 4: 03pm Chief Complaint Admit Date Patient is here for a 1 month f/u in off [place] July 27, 2024 4:03pm Patient here for a 2 month f/u October 20, 2024 3:30pm Reason for Visit Admit Date Anxiety July 27, 2024 4:03 pm Chronic pain syndrome July 27, 2024 4: 03pm Anxiety October 20, 2024 3:30p m Chronic pain syndrome October 20, 2024 3:3 0pm Chief Complaint Admit Date Patient here for a 2 month f/u October 20, 2024 3:30pm [facility] December 07, 2024 11:5 9pm Amb Documentation December 13, 2024 10:1 3am care home visit December 23, 2024 11:5 9pm F/u via Virtual January 11, 2025 4: 15pm Reason for Visit Admit Date Anxiety October 20, 2024 3:30p m Chronic pain syndrome October 20, 2024 3:3 0pm Chief Complaint Admit Date Patient here for a 2 month f/u October 20, 2024 3:30pm [facility] December 07, 2024 11:5 9pm Amb Documentation December 13, 2024 10:1 3am care home visit December 23, 2024 11:5 9pm F/u via Virtual January 11, 2025 4: 15pm Virtual: Phone Call to Discuss Meds Augu st 2024 2:02pm Additional Source Comments INFORMATION SOURCE (unrecogn ized section and content) DATE CREATED AUTHOR 03/09/2018 [facility] DATE CREATED AUTHOR AUTHOR'S ORGANIZ ATION 08/07/2021 [facility] DATE CREATED AUTHOR AUTHOR'S ORGANIZ ATION 08/17/2021 [facility] DATE CREATED AUTHOR AUTHOR'S ORGANIZ ATION 01/18/2022 [facility] DATE CREATED AUTHOR AUTHOR'S ORGANIZ ATION 04/05/2022 [facility] DATE CREATED AUTHOR AUTHOR'S ORGANIZ ATION 11/16/2023 [facility] DATE CREATED AUTHOR AUTHOR'S ORGANIZ ATION 01/13/2024 [facility] DATE CREATED AUTHOR AUTHOR'S ORGANIZ ATION 01/24/2024 [facility] DATE CREATED AUTHOR AUTHOR'S ORGANIZ ATION 02/15/2024 [facility] DATE CREATED AUTHOR AUTHOR'S ORGANIZ ATION 05/08/2024 [facility] DATE CREATED AUTHOR AUTHOR'S ORGANIZ ATION 05/09/2024 [facility] DATE CREATED AUTHOR AUTHOR'S ORGANIZ ATION 06/17/2024 [facility] DATE CREATED AUTHOR AUTHOR'S ORGANIZ ATION 01/09/2025 [facility] DATE CREATED AUTHOR AUTHOR'S ORGANIZ ATION 01/13/2025 [facility] Care Team (unrecognized sect ion and content) Team Status: Active Member Role Status Dates Maureen Mitchell MD Primary Care Provider Active Team Status: Inactive Member Role Status Dates Thi Vidal APRN Attending Provider Active Start: July 27, 2024 End: July 27, 2024 Maureen Mitchell MD Primary Care Provider Active Start: July 27, 2024 End: July 27, 2024 Team Status: Inactive Member Role Status Dates Maureen Mitchell MD Primary Care Provider Active Start: October 20, 2024 End: October 20, 2024 Thi Vidal APRN Attending Provider Active Start: October 20, 2024 End: October 20, 2024 Team Status: Active Member Role Status Dates PHYSICIAN NO FAMILY Primary Care Provider Active Team Status: Active Member Role Status Dates Maureen Mitchell MD Primary Care Provider Active Start: April 01, 2024 Ana Lilia Moreno PA-C Attending Provider Active Start: April 01, 2024 Team Status: Active Member Role Status Dates Maureen Mitchell MD Primary Care Provider Active Start: April 06, 2024 Grzegorz Wilkins DO Attending Provider Active Sta rt: April 06, 2024 Team Status: Inactive Member Role Status Dates Maureen Mitchell MD Primary Care Provide r, Attending Provider Active Start: April 08, 2024 End: April 08, 2024 Team Status: Inactive Member Role Status Dates Maureen Mitchell MD Primary Care Provide r, Attending Provider Active Start: April 29, 2024 End: April 29, 2024 Team Status: Inactive Member Role Status Dates Maureen Mitchell MD Attending Provider Active St art: April 29, 2024 End: April 29, 2024 Team Status: Active Member Role Status Dates Maureen Mitchell MD Attending Provider Active St art: May 06, 2024 Team Status: Inactive Member Role Status Dates Thi Vidal APRN Attending Provider Active Start: May 28, 2024 End: May 28, 2024 PHYSICIAN NO FAMILY Primary Care Provider Active Start: May 28, 2024 End: May 28, 2024 Team Status: Active Member Role Status Dates PHYSICIAN NO FAMILY Primary Care Provider Active Start: June 11, 2024 Tiffany Egan CMA Attending Provider Active Start: June 11, 2024 Team Status: Inactive Member Role Status Dates PHYSICIAN NO FAMILY Primary Care Provider Active Start: June 30, 2024 End: June 30, 2024 Thi Vidal APRN Attending Provider Active Start: June 30, 2024 End: June 30, 2024 Team Status: Inactive Member Role Status Dates Maureen Mitchell MD Primary Care Provider Active Start: March 30, 2024 End: March 30, 2024 Thi iVdal APRN Attending Provider Active Start: March 30, 2024 End: March 30, 2024 Team Status: Active Member Role Status Dates Maureen Mitchell MD Primary Care Provider Active Start: January 06, 2024 Jayjay Oscar DO Attending Provider Active S tart: January 06, 2024 Team Status: Active Member Role Status Dates Maureen Mitchell MD Primary Care Provider Active Start: January 06, 2024 Grzegorz Wilkins DO Attending Provider Active Sta rt: January 06, 2024 Team Status: Active Member Role Status Dates Maureen Mitchell MD Primary Care Provider Active Start: January 12, 2024 Isha Holley MD Attending Provider Active Sta rt: January 12, 2024 Team Status: Inactive Member Role Status Lyndsey Micthell MD Primary Care Provide r, Attending Provider Active Start: January 20, 2024 End: January 20, 2024 Team Status: Active Member Role Status Lyndsey Mitchell MD Primary Care Provider Active Start: January 20, 2024 Grzegorz Wilkins DO Attending Provider Active Sta rt: January 20, 2024 Team Status: Inactive Member Role Status Lyndsey Mitchell MD Primary Care Provide r, Attending Provider Active Start: January 30, 2024 End: January 30, 2024 Team Status: Active Member Role Status Lyndsey Mitchell MD Primary Care Provide r, Attending Provider Active Start: February 26, 2024 Team Status: Inactive Member Role Status Lyndsey Mitchell MD Primary Care Provide r, Attending Provider Active Start: February 26, 2024 End: February 26, 2024 Team Status: Inactive Member Role Status Lyndsey Mitchell MD Primary Care Provider Active Start: December 11, 2023 End: December 11, 2023 Thi Vidal APRN Attending Provider Active Start: December 11, 2023 End: December 11, 2023 Team Status: Inactive Member Role Status Lyndsey Mitchell MD Primary Care Provide r, Attending Provider Active Start: December 18, 2023 End: December 18, 2023 Team Status: Active Member Role Status Lyndsey Mitchell MD Primary Care Provider Active Start: December 28, 2023 Damaris Coffey DO Attending Provider Active Sta rt: December 28, 2023 Team Status: Active Member Role Status Lyndsey Mitchell MD Primary Care Provider Active Start: December 28, 2023 End: December 30, 2023 Grzegorz Wilkins DO Attending Provider Active Sta rt: December 28, 2023 End: December 30, 2023 Team Status: Active Member Role Status Lyndsey Mitchell MD Primary Care Provider Active Start: December 29, 2023 Shaikh Ana Paula MD Attending Provider Active Sta rt: December 29, 2023 Team Status: Active Member Role Status Lyndsey Mitchell MD Primary Care Provider Active Start: [...] October 14, 2023 End: October 14, 2023 Mechanical Engineering Technologist Relationship Specialty Start Date End Date Maureen Mitchell MD [address] [place] [address] PCP - General Family Medicine 05/27/23 Mechanical Engineering Technologist Relationship Specialty Start Date End Date Maureen Mitchell MD [address] [place] [address] PCP - General Family Medicine 05/27/23 Mechanical Engineering Technologist Relationship Specialty Start Date End Date Maureen Mitchell MD [address] [place] [address] PCP - General Family Medicine 05/27/23 Yossi Hunter MD [address] [employer] [facility] [place] [address] [place] [address] [id number] Nursing Executive Cardiology 06/17/23 Mechanical Engineering Technologist Relationship Specialty Start Date End Date Maureen Mitchell MD [address] [place] [address] PCP - General Family Medicine 05/27/23 Yossi Hunter MD [address] [facility], [place] [address] [place] [address] Nursing Executive Cardiology 06/17/23 Mechanical Engineering Technologist Relationship Specialty Start Date End Date Maureen Mitchell MD [address] [place] [address] PCP - General Family Medicine 05/27/23 Yossi Hunter MD [address] [facility], [place] [address] [place] [address] Nursing Executive Cardiology 06/17/23 Team Status: Active Member Role [...] September 12, 2023 End: September 12, 2023 Mechanical Engineering Technologist Relationship Specialty Start Date End Date Maureen Mitchell MD [address] [place] [address] PCP - General Family Medicine 05/27/23 Yossi Hunter MD [address] [facility], [place] [address] [place] [address] Nursing Executive Cardiology 06/17/23 Mechanical Engineering Technologist Relationship Specialty Start Date End Date Maureen Mitchell MD [address] [place] [address] PCP - General Family Medicine 05/27/23 Yossi Hunter MD [address] [facility], [place] [address] [place] [address] Nursing Executive Cardiology 06/17/23 Mechanical Engineering Technologist Relationship Specialty Start Date End Date Maureen Mitchell MD PCP - General Family Medicine 10/18/17 Mechanical Engineering Technologist Relationship Specialty Start Date End Date Maureen Mitchell MD PCP - General Family Medicine 10/18/17 Team Status: Active Member Role Status Dates Maureen Mitchell MD Primary Care Provider Active Start: November 30, 2024 Isha Holley MD Attending Provider Active Sta rt: November 30, 2024 Team Status: Active Member Role Status Dates Maureen Mitchell MD Primary Care Provider Active Start: December 01, 2024 Jackson Mondragon MD Attending Provider Active Sta rt: December 01, 2024 Team Status: Active Member Role Status Dates Maureen Mitchell MD Primary Care Provider Active Start: December 02, 2024 Jackson Mondragon MD Attending Provider Active Sta rt: December 02, 2024 Team Status: Active Member Role Status Dates Maureen Mitchell MD Primary Care Provider Active Start: December 03, 2024 Jackson Mondragon MD Attending Provider Active Sta rt: December 03, 2024 Team Status: Active Member Role Status Dates Maureen Mitchell MD Primary Care Provider Active Start: December 04, 2024 Jackson Mondragon MD Attending Provider Active Sta rt: December 04, 2024 Team Status: Active Member Role Status Dates Maureen Mitchell MD Primary Care Provider Active Start: December 05, 2024 Jackson Mondragon MD Attending Provider Active Sta rt: December 05, 2024 Team Status: Active Member Role Status Dates Maureen Mitchell MD Primary Care Provider Active Start: December 07, 2024 Maureen Mitchell MD Attending Provider Active St art: December 07, 2024 Team Status: Active Member Role Status Dates Maureen Mitchell MD Primary Care Provider Active Start: December 13, 2024 Alyssa Romo CMA Attending Provider Active St art: December 13, 2024 Team Status: Active Member Role Status Dates Maureen Mitchell MD Primary Care Provider Active Start: December 23, 2024 Maureen Mitchell MD Attending Provider Active St art: December 23, 2024 Team Status: Inactive Member Role Status Dates Maureen Mitchell MD Primary Care Provider Active Start: January 11, 2025 End: January 11, 2025 Thi Vidal APRN Attending Provider Active Start: January 11, 2025 End: January 11, 2025 Team Status: Inactive Member Role Status Dates Maureen Mitchell MD Primary Care Provider Active Start: January 18, 2025 End: January 18, 2025 Maureen Mitchell MD Attending Provider Active St art: January 18, 2025 End: January 18, 2025 REASON FOR VISIT (unrecogniz ed section and content) Reason Comments New Patient Visit Specialty Diagnoses / Procedures Referred By Contac t Referred To Contact Cardiology Diagnoses Shortness of breath Heart valve disease Dizziness Dilation of aorta (CMS/HCC) Procedures Transthoracic Echo (TTE) Complete RI ECHO TTHRC R-T 2D W/WOM-MODE COMPL SPEC&COLR D Yossi Hunter MD [address] [place] [id number] Referral ID Status Reason Start Date Expiration Date Visits Requested Visits Authorized [id number] Authorized Perform Procedure 05/27/2023 05/26/2024 1 1 Reason Comments Patient here for follow up Echo Specialty Diagnoses / Procedures Referred By Contac t Referred To Contact Radiology Diagnoses Essential hypertension Shortness of breath Angina pectoris, unstable (CMS/HCC) Procedures CT angio coronary art with heartflow if score >30% Yossi Hunter MD [address] [place] [address], [address] [address] Referral ID Status Reason Start Date Expiration Date Visits Requested Visits Authorized [id number] Authorized Perform Procedure 07/01/2023 06/30/2024 1 1 Reason Comments Pre-op Clearance POC to have lumbar s urgery on 04/21/[address] Jovana Guardado in [facility] Specialty Diagnoses / Procedures Referred By Norberto t Referred To Contact Diagnoses Pre-operative clearance Procedures ECG 12 lead (Clinic Performed) Yossi Hunter MD [address] [facility] [employer] [facility], [place] [address] [place] [address] Phone: tel: fax: Referral ID Status Reason Start Date Expiration Date V isits Requested Visits Authorized [id number] Authorized 04/07/2024 04/07/2025 1 1 Reason Comments Pre-op Clearance POC to have lumbar s urgery on pending with Dr. 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] Procedures RI ARTHRODESIS POSTERIOR/PSTLAT TQ 1NTRSPC LUMBAR RI KU FACETECTOMY&FORAMOT 1 VRT SGM EA ADDL SGM RI KU FACETECTOMY & FORAMOTOMY 1 VRT SGM LUMBAR RI POSTERIOR NON-SEGMENTAL INSTRUMENTATION RI AUTOGRAFT SPINE SURGERY LOCAL FROM SAME INCISION L4-L5 REVISION DECOMPRESSION WITH FUSION L4-L5 REVISION DECOMPRESSION WITH FUSION L4-L5 REVISION DECOMPRESSION WITH FUSION L4-L5 REVISION DECOMPRESSION WITH FUSION L4-L5 REVISION DECOMPRESSION WITH FUSION Jovana Holloway MD [address] [place] [address] [place] [address] [facility] [id number] [place] [phone] Referral ID Status Reason Start Date Expiration Date Visits Re quested Visits Authorized [id number] 1 1 Specialty Diagnoses / Procedures Referred By Norberto t Referred To Contact Diagnoses GI bleed GI Bleed, [facility] Suzanne Pretty MD [address] [place] [address] [facility] [phone] [place] [phone] Referral ID Status Reason Start Date Expiration Date Visits Re quested Visits Authorized [id number] 1 1 Goals (unrecognized section and content) Goals may be documented in a n alternate section Scheduled Active and Recently Administ ered Medications (unrecognized section and content) Medication Order 06/09/2024 06/10/2024 06/11/2024 amitriptyline (ELAVIL) tablet 75 mg 75 mg, Oral, NIGHTLY, First dose on Fri06/08/24 at 2100, Until Discontinued 2118 (Given - Provider: Luba Caldwell RN) 2137 (Given - Provider: Luba Caldwell RN) 2099 (Due) bisacodyl (DULCOLAX) EC tablet 5 mg 5 mg, Oral, DAILY, First dose on Fri06/08/24 at 2100, Until Discontinued, Do not crush or break., Post-op 0900 (Not Given - Provider: Conchita Patterson RN - Reason: Patient/family refused) 1256 (Not Given - Provider: Genevieve Jones RN - Reason: Patient/family refused) 1031 (Not Given - Provider: Genevieve Jones RN - Reason: Patient/family refused) ceFAZolin (ANCEF) 2,000 mg in sterile water 20 mL IV syringe (COMPLETED) 2,000 mg, IntraVENous, EVERY 8 HOURS, 2 doses, First dose on Fri06/08/24 at 2300, Last dose on Fri06/09/24 at 0700, Antimicrobial Indications: Surgical Prophylaxis, Administer over 5 mins. Reconstitute 2 g vial with 20 mL Sterile Water. Withdraw entire contents., Post-op 0642 (Given - Provider: Alyssa Lantigua RN) metoprolol succinate (TOPROL XL) extended release tablet 50 mg 50 mg, Oral, DAILY, First dose on Fri06/09/24 at 1230, Until Discontinued, Do not crush or chew. 1349 (Given - Provider: Conchita Patterson RN) 0844 (Given - Provider: Genevieve Jones, TIFFANIE) 1023 (Given - Provider: Genevieve Jones RN) polyethylene glycol (GLYCOLAX) packet 17 g 17 g, Oral, DAILY, First dose on Fri06/08/24 at 2100, Until Discontinued, Stir and dissolve one packet of powder (17 g) in any 4 to 8 ounces of beverage (cold, hot or room temperature) then drink, Post-op 0859 (Not Given - Provider: Conchita Patterson RN - Reason: Patient/family refused) 1256 (Not Given - Provider: Genevieve Jones RN - Reason: Patient/family refused) 1031 (Not Given - Provider: Genevieve Jones RN - Reason: Patient/family refused) potassium bicarb-citric acid (EFFER-K) effervescent tablet 40 mEq (COMPLETED) 40 mEq, Oral, ONCE, 1 dose, On Fri06/11/24 at 1345, Do not chew or crush. Dissolve flavored tablets completely in 3 to 4 ounces of cold water; unflavored tablets may be dissolved in 3 to 4 ounces of cold juice. Patient to sip slowly over a 5 to 10 minute period. May further dilute if GI adverse effects occur. 1340 (Given - Provider: Genevieve Jones RN) pregabalin (LYRICA) capsule 200 mg 200 mg, Oral, 3 TIMES DAILY RESP, First dose on Fri06/08/24 at 2000, Until Discontinued 0910 (Given - Provider: Conchita Patterson RN)1349 (Given - Provider: Conchita Patterson RN)2120 (Given - Provider: Luba Caldwell RN) 0842 (Given - Provider: Genevieve Jones RN)1750 (Not Given - Provider: Genevieve Jones RN - Reason: Other)2136 (Given - Provider: Luba Caldwell RN) 1029 (Given - Provider: Genevieve Jones RN)1456 (Given - Provider: Genevieve Jones RN)1999 (Due) sennosides-docusate sodium (SENOKOT-S) 8.6-50 MG tablet 1 tablet 1 tablet, Oral, 2 TIMES DAILY, First dose on Fri06/08/24 at 2100, Until Discontinued, Post-op 0909 (Not Given - Provider: Conchita Patterson RN - Reason: Patient/family refused - Comment: refusing laxitives and softeners)212 (Not Given - Provider: Luba Caldwell RN - Reason: Patient/family refused) 0842 (Given - Provider: Genevieve Jones RN)2139 (Not Given - Provider: Luba Caldwell RN - Reason: Patient/family refused) 1031 (Not Given - Provider: Genevieve Jones RN - Reason: Patient/family refused)2100 (Due) sertraline (ZOLOFT) tablet 200 mg 200 mg, Oral, Nightly, First dose on Fri06/08/24 at 2100, Until Discontinued 2119 (Given - Provider: Luba Caldwell RN) 2137 (Given - Provider: Luba Caldwell RN) 2100 (Due) sodium chloride flush 0.9 % injection 5-40 mL 5-40 mL, IntraVENous, EVERY 12 HOURS SCHEDULED (2 times per day), First dose on Fri06/08/24 at 2100, Until Discontinued, For Line Patency: Peripheral IV = 5 mL; Midline or Central Line = 10 mL/lumen. If following IV push medication, administer flush at same rate as the IV push. Flush volume is determined by type of infusion therapy being given. For non-viscous solutions use: Peripheral IV = 5 mL Midline or Central Line = 10 mL/lumen For viscous solutions (i.e. blood components, parenteral nutrition, contrast media, or after obtaining blood sample) use: Peripheral IV = 10 mL Midline or Central Line = 20 mL/lumen, Post-op 0911 (Not Given - Provider: Conchita Patterson RN - Reason: IV Fluid Infusing)2125 (Given - Provider: Luba Caldwlel RN) 0850 (Given - Provider: Genevieve Jones, TIFFANIE)2137 (Given - Provider: Luba Caldwell RN) 1023 (Given - Provider: Genevieve Jones, TIFFANIE)2100 (Due) Continuous Medication Order 06/09/2024 06/10/2024 06/11/2024 0.9 % sodium chloride infusion IntraVENous, at 125 mL/hr, CONTINUOUS, Starting on Fri06/08/24 at 1930, Post-op 0005 (Rate/Dose Verify - Provider: Alyssa Lantigua RN) 1528 (Stopped - Provider: Genevieve Jones, TIFFANIE) PRN Medication Order 06/09/2024 06/10/2024 06/11/2024 0.9 % sodium chloride infusion IntraVENous, at 5-250 mL/hr, PRN, if patient receiving piggyback infusions and maintenance fluids are not ordered OR KVO fluids to protect IV site / prevent frequent line interruptions/ long duration, Starting on Fri06/08/24 at 1909, For piggyback infusion, administer at same rate as piggyback for a total of 25 mL. Enter 25 mL into dose field and piggyback rate into rate field of order. If piggyback is infusing at a rate less than 100 mL/hr, enter 25 mL into dose field and 100 mL/hr into rate field of order. For KVO fluids, enter rate of 20 mL/hr or less into rate field of order., Post-op acetaminophen (TYLENOL) tablet 650 mg 650 mg, Oral, EVERY 6 HOURS PRN, Starting on Fri06/08/24 at 1909, Until Discontinued, Pain Mild (1-3), Fever, Maximum dose of acetaminophen is 4000 mg from all sources in 24 hours., Post-op 1632 (Given - Provider: Conchita Patterson RN) 0304 (Given - Provider: Luba Caldwell, TIFFANIE) ALPRAZolam (XANAX) tablet 0.5 mg 0.5 mg, Oral, EVERY 4 HOURS PRN, Starting on Fri06/08/24 at 1847, Until Discontinued, Anxiety 0340 (Given - Provider: Alyssa Lantigua RN)1512 (Given - Provider: Conchita Patterson RN)2123 (Given - Provider: Luba Caldwell RN) 0305 (Given - Provider: Luba Caldwell RN)0842 (Given - Provider: Genevieve Jones RN)1254 (Given - Provider: Genevieve Jones, TIFFANIE)1749 (Given - Provider: Genevieve Jones, TIFFANIE)2137 (Given - Provider: Luba Caldwell RN) 0137 (Given - Provider: Luba Caldwell RN)0616 (Given - Provider: Luba Caldwell RN)1022 (Given - Provider: Genevieve Jones RN)1453 (Given - Provider: Genevieve Jones RN) bisacodyl (DULCOLAX) suppository 10 mg 10 mg, Rectal, DAILY PRN, Starting on Fri06/08/24 at 1909, Until Discontinued, Constipation, Second line therapy for constipation, After 24 hours, if no result from first line PRN therapy, give second line therapy in combination with first line therapy., Post-op cyclobenzaprine (FLEXERIL) tablet 10 mg 10 mg, Oral, 3 TIMES DAILY PRN, Starting on Fri06/08/24 at 1847, Until Discontinued, Muscle spasms, Post-op magnesium hydroxide (MILK OF MAGNESIA) 400 MG/5ML suspension 30 mL 30 mL, Oral, DAILY PRN, Starting on Fri06/08/24 at 1909, Until Discontinued, Constipation, First line therapy for constipation., Post-op morphine injection 4 mg ()(Linked Group 1) 4 mg, IntraVENous, EVERY 2 HOURS PRN, Starting on Fri06/08/24 at 1847, Until Fri06/09/24 at 1846, Pain Severe (7-10), If oral and IV narcotics ordered, use oral first and only use IV if oral is ineffective or cannot take oral. Do Not give oral and IV within 1 hour of each other unless specifically ordered., Post-op 0650 (Given - Provider: Alyssa Lantigua RN)0914 (Given - Provider: Conchita Patterson RN) naloxone (NARCAN) injection 0.4 mg 0.4 mg, IntraVENous, PRN, Starting on Fri06/09/24 at 1416, Until Discontinued, Opioid Reversal ondansetron (ZOFRAN) injection 4 mg(Linked Group 2) 4 mg, IntraVENous, EVERY 6 HOURS PRN, Starting on Fri06/08/24 at 1909, Until Discontinued, Nausea, Vomiting, Administer if oral route cannot be used., Post-op ondansetron (ZOFRAN-ODT) disintegrating tablet 4 mg(Linked Group 2) 4 mg, Oral, EVERY 8 HOURS PRN, Starting on Fri06/08/24 at 1909, Until Discontinued, Nausea, Vomiting, Post-op oxyCODONE (ROXICODONE) immediate release tablet 10 mg (CANCELED)(Linked Group 3) 10 mg, Oral, EVERY 6 HOURS PRN, Starting on Fri06/08/24 at 1748, Until Fri06/09/24 at 1415, Pain Severe (7-10), Post-op 0340 (Given - Provider: Alyssa Lantigua RN)1202 (Given - Provider: Conchita Patterson RN) oxyCODONE (ROXICODONE) immediate release tablet 20 mg 20 mg, Oral, EVERY 4 HOURS PRN, Starting on Fri06/09/24 at 1422, Until Discontinued, Pain Moderate (4-6), Pain Severe (7-10), Allowed for higher pain score per patient request 1629 (Given - Provider: Conchita Patterson RN)2123 (Given - Provider: Luba Caldwell RN) 0304 (Given - Provider: Luba Caldwell RN)0841 (Given - Provider: Genevieve Jones RN)1254 (Given - Provider: Genevieve Jones RN)1749 (Given - Provider: Genevieve Jones RN)2137 (Given - Provider: Luba Caldwell RN) 0137 (Given - Provider: Luba Caldwell RN)0616 (Given - Provider: Luba Caldwell RN)1021 (Given - Provider: Genevieve Jones RN)1453 (Given - Provider: Genevieve Jones RN) potassium bicarb-citric acid (EFFER-K) effervescent tablet 40 mEq(Linked Group 4) 40 mEq, Oral, PRN, Starting on Corinne 06/10/24 at 1242, Until Discontinued, Per Potassium Replacement Protocol, Administer as alternative if patient unable to tolerate oral tablet. K Lab Replacement Action 3.1 to 3.5 40 mEq ORAL x 1 Under 3.1 Refer to IV replacement protocol Recheck K level in AM. Protocol not for use in patients with CrCl less than 30 mL/min. Do not chew or crush. Dissolve flavored tablets completely in 3 to 4 ounces of cold water; unflavored tablets may be dissolved in 3 to 4 ounces of cold juice. Patient to sip slowly over a 5 to 10 minute period. May further dilute if GI adverse effects occur. 1259 (See Alternative - Provider: Genevieve Jones RN) potassium chloride (KLOR-CON M) extended release tablet 40 mEq(Linked Group 4) 40 mEq, Oral, PRN, Starting on Corinne 06/10/24 at 1242, Until Discontinued, Potassium Replacement, May give alternative linked oral order (ordered as effervescent, packet, or liquid solution) if patient unable to tolerate tablet. K Lab Replacement Action 3.1 to 3.5 40 mEq ORAL x 1 Under 3.1 Refer to IV replacement protocol Recheck K level in AM. Protocol not for use in patients with CrCl less than 30 mL/min. Do not crush, chew, or suck on tablet. Tablet may also be broken in half and each half swallowed separately. 1259 (Given - Provider: Genevieve Jones RN) potassium chloride 10 mEq/100 mL IVPB (Peripheral Line)(Linked Group 4) 10 mEq, IntraVENous, PRN, Starting on Corinne 06/10/24 at 1242, Until Discontinued, at 100 mL/hr, Potassium Replacement, K Lab Replacement Action 2.7 to 3.0 10 mEq IVPB x 6 doses (60 mEq Total) Under 2.7 CALL PROVIDER and administer 10 mEq IVPB x 6 doses (60 mEq Total) Infuse at 10 mEq/hr. Repeat Potassium lab 1 hour after final administration. Protocol not for use in patients with CrCl less than 30 mL/min. 1259 (See Alternative - Provider: Genevieve Jones RN) sodium chloride flush 0.9 % injection 5-40 mL 5-40 mL, IntraVENous, PRN, Starting on 06/08/24 at 1909, Until Discontinued, Line Care, After every IV line use, For Line Patency: Peripheral IV = 5 mL; Midline or Central Line = 10 mL/lumen. If following IV push medication, administer flush at same rate as the IV push. Flush volume is determined by type of infusion therapy being given. For non-viscous solutions use: Peripheral IV = 5 mL Midline or Central Line = 10 mL/lumen For viscous solutions (i.e. blood components, parenteral nutrition, contrast media, or after obtaining blood sample) use: Peripheral IV = 10 mL Midline or Central Line = 20 mL/lumen, Post-op 09 (Given - Provider: Conchita Patterson RN) Linked Groups Order Group 1: morphine (PF) injection 2 mg () 2 mg, IntraVENous, EVERY 2 HOURS PRN, Starting on Fri06/08/24 at 1847, Until Fri06/09/24 at 1846, Pain Moderate (4-6), If oral and IV narcotics ordered, use oral first and only use IV if oral is ineffective or cannot take oral. Do Not give oral and IV within 1 hour of each other unless specifically ordered., Post-op Or morphine injection 4 mg ()Jump to med 4 mg, IntraVENous, EVERY 2 HOURS PRN, Starting on Fri06/08/24 at 1847, Until Fri06/09/24 at 1846, Pain Severe (7-10), If oral and IV narcotics ordered, use oral first and only use IV if oral is ineffective or cannot take oral. Do Not give oral and IV within 1 hour of each other unless specifically ordered., Post-op Group 2: ondansetron (ZOFRAN-ODT) disintegrating tablet 4 mgJump to med 4 mg, Oral, EVERY 8 HOURS PRN, Starting on Fri06/08/24 at 1909, Until Discontinued, Nausea, Vomiting, Post-op Or ondansetron (ZOFRAN) injection 4 mgJump to med 4 mg, IntraVENous, EVERY 6 HOURS PRN, Starting on Fri06/08/24 at 1909, Until Discontinued, Nausea, Vomiting, Administer if oral route cannot be used., Post- op Group 3: oxyCODONE (ROXICODONE) immediate release tablet 5 mg (CANCELED) 5 mg, Oral, EVERY 6 HOURS PRN, Starting on Fri06/08/24 at 1748, Until Fri06/09/24 at 1415, Pain Moderate (4-6), Post-op Or oxyCODONE (ROXICODONE) immediate release tablet 10 mg (CANCELED)Jump to med 10 mg, Oral, EVERY 6 HOURS PRN, Starting on Fri06/08/24 at 1748, Until Fri06/09/24 at 1415, Pain Severe (7-10), Post-op Group 4: potassium chloride (KLOR-CON M) extended release tablet 40 mEqJump to med 40 mEq, Oral, PRN, Starting on Fri06/10/24 at 1242, Until Discontinued, Potassium Replacement, May give alternative linked oral order (ordered as effervescent, packet, or liquid solution) if patient unable to tolerate tablet. K Lab Replacement Action 3.1 to 3.5 40 mEq ORAL x 1 Under 3.1 Refer to IV replacement protocol Recheck K level in AM. Protocol not for use in patients with CrCl less than 30 mL/min. Do not crush, chew, or suck on tablet. Tablet may also be broken in half and each half swallowed separately. Or potassium bicarb-citric acid (EFFER-K) effervescent tablet 40 mEqJump to med 40 mEq, Oral, PRN, Starting on Fri06/10/24 at 1242, Until Discontinued, Per Potassium Replacement Protocol, Administer as alternative if patient unable to tolerate oral tablet. K Lab Replacement Action 3.1 to 3.5 40 mEq ORAL x 1 Under 3.1 Refer to IV replacement protocol Recheck K level in AM. Protocol not for use in patients with CrCl less than 30 mL/min. Do not chew or crush. Dissolve flavored tablets completely in 3 to 4 ounces of cold water; unflavored tablets may be dissolved in 3 to 4 ounces of cold juice. Patient to sip slowly over a 5 to 10 minute period. May further dilute if GI adverse effects occur. Or potassium chloride 10 mEq/100 mL IVPB (Peripheral Line)Jump to med 10 mEq, IntraVENous, PRN, Starting on Corinne 06/10/24 at 1242, Until Discontinued, at 100 mL/hr, Potassium Replacement, K Lab Replacement Action 2.7 to 3.0 10 mEq IVPB x 6 doses (60 mEq Total) Under 2.7 CALL PROVIDER and administer 10 mEq IVPB x 6 doses (60 mEq Total) Infuse at 10 mEq/hr. Repeat Potassium lab 1 hour after final administration. Protocol not for use in patients with CrCl less than 30 mL/min. Scheduled Medication Order 01/03/2024 01/04/2024 01/05/2024 amLODIPine (NORVASC) tablet 5 mg 5 mg, Oral, DAILY, First dose on Fri01/04/24 at 1315, Until Discontinued 1305 (Given - Provider: Sissy Hardy, TIFFANIE) 0828 (Given - Provider: Ana Malone RN) carvedilol (COREG) tablet 6.25 mg (CANCELED) 6.25 mg, Oral, 2 TIMES DAILY WITH MEALS, First dose (after last modification) on Fri12/31/23 at 1700, Until Discontinued, Hold if SBP less than 110, heart rate less than 55 Administer with food to minimize the risk of orthostatic hypotension 0800 (Automatically Held - Provider: Suzanne Celeste MD)1137 (Unheld by provider - Provider: Christopher Morataya MD)1734 (Given - Provider: Lamar Zepeda RN) 0820 (Given - Provider: Sissy Hardy, TIFFANIE) carvedilol (COREG) tablet 6.25 mg 6.25 mg, Oral, 2 TIMES DAILY WITH MEALS, First dose (after last modification) on Fri01/04/24 at 1700, Until Discontinued, Hold if SBP less than 110, heart rate less than 55 Administer with food to minimize the risk of orthostatic hypotension 1554 (Given - Provider: Sissy Hardy, RN) 0828 (Given - Provider: Ana Malone, TIFFANIE)1555 (Not Given - Provider: Ana Malone RN - Reason: Order parameters not met - Comment: SBP <100 (100/70)) cyanocobalamin injection 1,000 mcg 1,000 mcg, IntraMUSCular, ONCE, 1 dose, On Fri01/01/24 at 1815 labetalol (NORMODYNE;TRANDATE) injection 10 mg (CANCELED) 10 mg, IntraVENous, EVERY 6 HOURS, First dose on Fri01/02/24 at 1430, Until Discontinued 034 (Given - Provider: Dasha Brady RN)075 (Given - Provider: Lamar Zepeda RN) pantoprazole (PROTONIX) 40 mg in sodium chloride (PF) 0.9 % 10 mL injection 40 mg, IntraVENous, EVERY 12 HOURS, First dose on Fri01/04/24 at 2000, Reconstitute each 40 mg vial with 10 mL of 0.9% sodium chloride and administer each 40 mg vial over at least 2 minutes. 2005 (Given - Provider: Juany Dejesus RN) 0834 (Given - Provider: Ana Malone RN)1999 (Due) pantoprazole (PROTONIX) 80 mg in sodium chloride (PF) 0.9 % 20 mL injection 80 mg, IntraVENous, ONCE, 1 dose, On Fri01/01/24 at 1015 pregabalin (LYRICA) capsule 200 mg 200 mg, Oral, 3 TIMES DAILY RESP, First dose on Fri12/31/23 at 0800, Until Discontinued 075 (Given - Provider: Lamar Zepeda RN)1347 (Given - Provider: Lamar Zepeda RN)204 (Given - Provider: Diane Eng RN) 0820 (Given - Provider: Sissy Hardy, RN)1305 (Given - Provider: Sissy Hardy, RN)2004 (Given - Provider: Juany Dejesus RN) 0828 (Given - Provider: Ana Malone, TIFFANIE)1432 (Given - Provider: Ana Malone, TIFFANIE)1999 (Due) sertraline (ZOLOFT) tablet 200 mg 200 mg, Oral, Nightly, First dose on Fri12/30/23 at 2345, Until Discontinued 2042 (Given - Provider: Diane Eng RN) 2004 (Given - Provider: Juany Dejesus, RN) 2100 (Due) sodium chloride flush 0.9 % injection 5-40 mL 5-40 mL, IntraVENous, EVERY 12 HOURS SCHEDULED (2 times per day), First dose on Fri12/30/23 at 2100, Until Discontinued, For Line Patency: Peripheral IV = 5 mL; Midline or Central Line = 10 mL/lumen. If following IV push medication, administer flush at same rate as the IV push. Flush volume is determined by type of infusion therapy being given. For non-viscous solutions use: Peripheral IV = 5 mL Midline or Central Line = 10 mL/lumen For viscous solutions (i.e. blood components, parenteral nutrition, contrast media, or after obtaining blood sample) use: Peripheral IV = 10 mL Midline or Central Line = 20 mL/lumen 0758 (Given - Provider: Lamar Zepeda RN)2043 (Given - Provider: Diane Eng RN) 0820 (Given - Provider: Sissy Hardy, TIFFANIE)2008 (Given - Provider: Juany Dejesus RN) 0828 (Given - Provider: Ana Malone RN)2100 (Due) sucralfate (CARAFATE) tablet 1 g 1 g, Oral, EVERY 8 HOURS SCHEDULED (3 times per day), First dose on Fri01/03/24 at 0815, Until Discontinued, Substituted for Sucralfate suspension. Administer on an empty stomach. Do not administer antacids within 30 minutes of administration of sucralfate. To make a slurry for oral administration, place sucralfate tablets in 20 mL of water, let stand for 5 minutes, and administer via mouth. Sucralfate slurry should not be given with enteral feedings. If continuous tube feeds, flush the tube and hold the feeds for 1-2 hours before and after slurry administration. To give using an ORAL syringe: 1. Remove the cap and plunger from a 60 mL oral use only syringe and place the sucralfate tablet inside. 2. Replace the plunger so that minimal airspace exists around the tablet and draw up about 20 mL of distilled water into the syringe. 3. Replace cap and allow the syringe to stand for about for 5 minutes, shaking occasionally. 4. Label syringe Oral Use Only 5. Shake the suspension and administer directly from the syringe into the tube. 1131 (Given - Provider: Lamar Zepeda RN - Comment: waiting for dose)2043 (Given - Provider: Diane Eng RN)2228 (Given - Provider: Diane Eng RN) 0553 (Given - Provider: Diane Eng RN)1305 (Given - Provider: Sissy Hardy RN)2226 (Given - Provider: Flaco Stevenson RN) 0846 (Given - Provider: Ana Malone, RN)1432 (Given - Provider: Ana Malone RN)2200 (Due) Continuous Medication Order 01/03/2024 01/04/2024 01/05/2024 0.9 % sodium chloride infusion IntraVENous, at 50 mL/hr, CONTINUOUS, Starting on Fri12/30/23 at 1845 0727 (Rate/Dose Change - Provider: Dasha Brady RN)0729 (Rate/Dose Change - Provider: Dasha Brady RN)0730 (Stopped - Provider: Dasha Brady RN)0730 (New Bag - Provider: Lamar Zepeda RN)0731 (Rate/Dose Verify - Provider: Dasha Brady RN)1141 (Rate/Dose Change - Provider: Lamar Zepeda RN)2058 (Rate/Dose Verify - Provider: Diane Eng RN)2149 (Rate/Dose Verify - Provider: Diane Eng RN)2229 (Stopped - Provider: Diane Eng RN)2229 (New Bag - Provider: Diane Eng RN) 0604 (Rate/Dose Verify - Provider: Diane Eng RN)0719 (Rate/Dose Verify - Provider: Sissy Hardy RN)1147 (Rate/Dose Verify - Provider: Sissy Hardy, RN)1555 (New Bag - Provider: Sissy Hardy, RN)1642 (Paused - Provider: Sissy Hardy, RN)1652 (Restarted - Provider: Sissy Hardy, RN)1717 (Rate/Dose Verify - Provider: Sissy Hardy, RN) 0959 (New Bag - Provider: Ana Malone, TIFFANIE)1813 (Stopped - Provider: Ana Malone RN) pantoprazole (PROTONIX) 80 mg in sodium chloride 0.9 % 100 mL infusion () 8 mg/hr (10 mL/hr), IntraVENous, CONTINUOUS, Starting on Corinne 01/01/24 at 1015, Until 01/04/24 at 1014 0257 (Rate/Dose Verify - Provider: Dasha Brady RN)0258 (Rate/Dose Verify - Provider: Dasha Brady RN)0258 (Stopped - Provider: Dasha Brady, RN)0258 (New Bag - Provider: Dasha Brady, RN)0730 (Rate/Dose Verify - Provider: Dasha Brady, RN)0731 (Rate/Dose Verify - Provider: Dasha Brady, RN)1110 (Paused - Provider: Diane Eng RN)1117 (Restarted - Provider: Diane Eng RN)1309 (Rate/Dose Verify - Provider: Diane Eng RN)1309 (Rate/Dose Verify - Provider: Diane Eng RN)1351 (Rate/Dose Verify - Provider: Diane Eng RN)1351 (Rate/Dose Verify - Provider: Diane Eng RN)1400 (Stopped - Provider: Diane Eng RN)1400 (New Bag - Provider: Lamar Zepeda RN)1400 (Rate/Dose Verify - Provider: Diane Eng RN)2039 (Rate/Dose Verify - Provider: Diane Eng RN)2058 (Rate/Dose Verify - Provider: Diane Eng RN)2228 (Rate/Dose Verify - Provider: Diane Eng RN)2328 (Rate/Dose Verify - Provider: Diane Eng RN)2329 (Rate/Dose Verify - Provider: Diane Eng RN)2330 (Stopped - Provider: Diane Eng RN)2330 (New Bag - Provider: Diane Eng RN) 0604 (Rate/Dose Verify - Provider: Diane Eng RN)0719 (Rate/Dose Verify - Provider: Sissy Hardy, RN)0823 (Rate/Dose Verify - Provider: Sissy Hardy, RN)1023 (Rate/Dose Verify - Provider: Sissy Hardy, RN)1023 (Rate/Dose Verify - Provider: Sissy Hardy, RN)1134 (Stopped - Provider: Sissy Hardy RN) 1821 (Stopped - Provider: Coranne Malone, RN - Comment: stopped for avs) PRN Medication Order 01/03/2024 01/04/2024 01/05/2024 0.9 % sodium chloride infusion IntraVENous, at 5-250 mL/hr, PRN, if patient receiving piggyback infusions and maintenance fluids are not ordered OR KVO fluids to protect IV site / prevent frequent line interruptions/ long duration, Starting on Fri12/30/23 at 1819, For piggyback infusion, administer at same rate as piggyback for a total of 25 mL. Enter 25 mL into dose field and piggyback rate into rate field of order. If piggyback is infusing at a rate less than 100 mL/hr, enter 25 mL into dose field and 100 mL/hr into rate field of order. For KVO fluids, enter rate of 20 mL/hr or less into rate field of order. 182 (Stopped - Provider: Ana Malone, TIFFANIE - Comment: stopped for avs) 0.9 % sodium chloride infusion IntraVENous, at 240 mL/hr, Administer over 10 Minutes, PRN, blood administration, Starting on Corinne 01/01/24 at 1417, For 1 dose, For use in priming line prior to transfusion (prime via gravity) and flush line post transfusion ONLY. Discontinue once line has been cleared of remaining blood product. 182 (Stopped - Provider: Ana Malone RN - Comment: stopped for avs) 0.9 % sodium chloride infusion IntraVENous, at 240 mL/hr, Administer over 10 Minutes, PRN, blood administration, Starting on Corinne 01/01/24 at 1629, For 1 dose, For use in priming line prior to transfusion (prime via gravity) and flush line post transfusion ONLY. Discontinue once line has been cleared of remaining blood product. 182 (Stopped - Provider: Ana Malone RN - Comment: stopped for avs) acetaminophen (TYLENOL) suppository 650 mg(Linked Group 1) 650 mg, Rectal, EVERY 6 HOURS PRN, Starting on Fri12/30/23 at 1819, Until Discontinued, Pain Mild (1-3), Fever, For temp greater than 100.4 F (38 C), Administer if oral route cannot be used. 0756 (See Alternative - Provider: Lamar Zepeda RN) 0833 (See Alternative - Provider: Ana Malone RN) acetaminophen (TYLENOL) tablet 650 mg(Linked Group 1) 650 mg, Oral, EVERY 6 HOURS PRN, Starting on Fri12/30/23 at 1819, Until Discontinued, Pain Mild (1-3), Fever, For temp greater than 100.4 F (38 C), Maximum dose of acetaminophen is 4000 mg from all sources in 24 hours. 0756 (Given - Provider: Lamar Zepeda RN) 0833 (Given - Provider: Ana Malone RN) ALPRAZolam (XANAX) tablet 0.5 mg 0.5 mg, Oral, 4 TIMES DAILY PRN, Starting on Fri12/30/23 at 2326, Until Discontinued, Anxiety 0917 (Given - Provider: Lamar Zepeda RN)2043 (Given - Provider: Diane Eng RN) 06 (Given - Provider: Diane Eng RN)113 (Given - Provider: Sissy Hardy, TIFFANIE)2008 (Given - Provider: Juany Dejesus RN) benzonatate (TESSALON) capsule 200 mg 200 mg, Oral, 3 TIMES DAILY PRN, Starting on Fri12/31/23 at 0631, Until Discontinued, Cough guaiFENesin (MUCINEX) extended release tablet 600 mg 600 mg, Oral, 2 TIMES DAILY PRN, Starting on Fri12/31/23 at 0631, Until Discontinued, Congestion, Cough, Do not crush or break. 06 (Given - Provider: Diane Eng RN) hydrALAZINE (APRESOLINE) injection 20 mg 20 mg, IntraVENous, EVERY 4 HOURS PRN, Starting on Fri12/30/23 at 2329, Until Discontinued, High Blood Pressure, SBP > 150 1132 (Given - Provider: Lamar Zepeda RN) 399 (Given - Provider: Diane Eng RN) HYDROmorphone (DILAUDID) injection 0.5 mg 0.5 mg, IntraVENous, EVERY 3 HOURS PRN, Starting on Fri12/30/23 at 2327, Until Discontinued, Allowed for higher pain score per patient request, Pain not controlled with oral opiates, If oral and IV narcotics ordered, use oral first and only use IV if oral is ineffective or cannot take oral. Do Not give oral and IV within 1 hour of each other unless specifically ordered. ipratropium 0.5 mg-albuterol 2.5 mg (DUONEB) nebulizer solution 1 Dose 1 Dose, Inhalation, EVERY 4 HOURS PRN, Starting on Fri12/31/23 at 0631, Until Discontinued, Shortness of Breath, Initiate RT Bronchodilator Protocol: Yes - Inpatient Protocol labetalol (NORMODYNE;TRANDATE) injection 10 mg 10 mg, IntraVENous, EVERY 6 HOURS PRN, Starting on 01/03/24 at 1200, Until Discontinued, High Blood Pressure, give for sys bp > 160. hold for HR < 60 midodrine (PROAMATINE) tablet 5 mg 5 mg, Oral, 3 TIMES DAILY PRN, Starting on 01/05/24 at 1144, Until Discontinued, if SBP < 100, Do not give after 1800 or within 4 hrs of bedtime. ondansetron (ZOFRAN) injection 4 mg 4 mg, IntraVENous, EVERY 6 HOURS PRN, Starting on Fri01/04/24 at 0409, Until Discontinued, Nausea, Vomiting 0415 (Given - Provider: Diane Eng RN) oxyCODONE (ROXICODONE) immediate release tablet 15 mg(Linked Group 2) 15 mg, Oral, EVERY 4 HOURS PRN, Starting on Fri12/30/23 at 2326, Until Discontinued, Pain Moderate (4-6) 1515 (Given - Provider: Rebecca Diaz RN) oxyCODONE (ROXICODONE) immediate release tablet 20 mg(Linked Group 2) 20 mg, Oral, EVERY 4 HOURS PRN, Starting on Fri12/30/23 at 2326, Until Discontinued, Pain Severe (7-10) 1515 (See Alternative - Provider: Rebecca Diaz RN) potassium bicarb-citric acid (EFFER-K) effervescent tablet 40 mEq(Linked Group 3) 40 mEq, Oral, PRN, Starting on Fri01/02/24 at 0000, Until Discontinued, Per Potassium Replacement Protocol, Administer as alternative if patient unable to tolerate oral tablet. K Lab Replacement Action 3.1 to 3.5 40 mEq ORAL x 1 Under 3.1 Refer to IV replacement protocol Recheck K level in AM. Protocol not for use in patients with CrCl less than 30 mL/min. Do not chew or crush. Dissolve flavored tablets completely in 3 to 4 ounces of cold water; unflavored tablets may be dissolved in 3 to 4 ounces of cold juice. Patient to sip slowly over a 5 to 10 minute period. May further dilute if GI adverse effects occur. 0243 (See Alternative - Provider: Dasha Brady RN)0755 (Given - Provider: Lamar Zepeda RN) 0621 (Given - Provider: Diane Eng RN) 1000 (See Alternative - Provider: Ana Malone RN)1116 (See Alternative - Provider: Ana Malone, TIFFANIE)1214 (See Alternative - Provider: Ana Malone, TIFFANIE)1301 (See Alternative - Provider: Ana Malone, RN)1431 (See Alternative - Provider: Ana Malone, TIFFANIE)1540 (See Alternative - Provider: Ana Malone, TIFFANIE) potassium chloride (KLOR-CON M) extended release tablet 40 mEq(Linked Group 3) 40 mEq, Oral, PRN, Starting on Fri01/02/24 at 0000, Until Discontinued, Per Potassium Replacement Protocol, May give alternative linked oral order (ordered as effervescent, packet, or liquid solution) if patient unable to tolerate tablet. K Lab Replacement Action 3.1 to 3.5 40 mEq ORAL x 1 Under 3.1 Refer to IV replacement protocol Recheck K level in AM. Protocol not for use in patients with CrCl less than 30 mL/min. Do not crush, chew, or suck on tablet. Tablet may also be broken in half and each half swallowed separately. 0243 (Given - Provider: Dasha Brady RN)0755 (See Alternative - Provider: Lamar Zepeda RN) 0621 (See Alternative - Provider: Diane Eng RN) 1000 (See Alternative - Provider: Ana Malone, TIFFANIE)1116 (See Alternative - Provider: Ana Malone, TIFFANIE)1214 (See Alternative - Provider: Ana Malone, TIFFANIE)1301 (See Alternative - Provider: Ana Malone, TIFFANIE)1431 (See Alternative - Provider: Ana Malone, TIFFANEI)1540 (See Alternative - Provider: Ana Malone, RN) potassium chloride 10 mEq/100 mL IVPB (Peripheral Line)(Linked Group 3) 10 mEq, IntraVENous, PRN, Starting on Fri01/02/24 at 0000, Until Discontinued, at 100 mL/hr, Per Potassium Replacement Protocol, K Lab Replacement Action 2.7-3.0 10 Meq IVPB x 6 doses (60 Meq Total) <2.7 CALL PHYSICIAN and 10 Meq IVPB x 6 doses (60 Meq Total) Infuse at 10meq/hr Repeat Potassium lab 1 hour after final administration. Protocol not for use in Patients with CrCl<30ml/min 0243 (See Alternative - Provider: Dasha Brady RN)0755 (See Alternative - Provider: Lamar Zepeda RN) 0621 (See Alternative - Provider: Diane Eng RN) 1000 (New Bag - Provider: Ana Malone, TIFFANIE)1116 (New Bag - Provider: Ana Malone RN)1214 (New Bag - Provider: Ana Malone RN)1301 (New Bag - Provider: Ana Malone, TIFFANIE)1431 (New Bag - Provider: Ana Malone, TIFFANIE)1540 (New Bag - Provider: Ana Malone RN) sodium chloride flush 0.9 % injection 5-40 mL 5-40 mL, IntraVENous, PRN, Starting on Fri12/30/23 at 1819, Until Discontinued, Line Care, After every IV line use, For Line Patency: Peripheral IV = 5 mL; Midline or Central Line = 10 mL/lumen. If following IV push medication, administer flush at same rate as the IV push. Flush volume is determined by type of infusion therapy being given. For non-viscous solutions use: Peripheral IV = 5 mL Midline or Central Line = 10 mL/lumen For viscous solutions (i.e. blood components, parenteral nutrition, contrast media, or after obtaining blood sample) use: Peripheral IV = 10 mL Midline or Central Line = 20 mL/lumen 2009 (Given - Provider: Juany Dejesus, TIFFANIE) SUMAtriptan (IMITREX) tablet 100 mg (COMPLETED) 100 mg, Oral, Once as needed, 1 dose, Starting on Fri01/05/24 at 1000, Until Fri01/05/24 at 1211, Migraine, Substituted for Eletriptan (RELPAX). 1211 (Given - Provider: Ana Malone RN) Linked Groups Order Group 1: acetaminophen (TYLENOL) tablet 650 mgJump to med 650 mg, Oral, EVERY 6 HOURS PRN, Starting on Fri12/30/23 at 1819, Until Discontinued, Pain Mild (1-3), Fever, For temp greater than 100.4 F (38 C), Maximum dose of acetaminophen is 4000 mg from all sources in 24 hours. Or acetaminophen (TYLENOL) suppository 650 mgJump to med 650 mg, Rectal, EVERY 6 HOURS PRN, Starting on Fri12/30/23 at 1819, Until Discontinued, Pain Mild (1-3), Fever, For temp greater than 100.4 F (38 C), Administer if oral route cannot be used. Group 2: oxyCODONE (ROXICODONE) immediate release tablet 15 mgJump to med 15 mg, Oral, EVERY 4 HOURS PRN, Starting on Fri12/30/23 at 2326, Until Discontinued, Pain Moderate (4-6) Or oxyCODONE (ROXICODONE) immediate release tablet 20 mgJump to med 20 mg, Oral, EVERY 4 HOURS PRN, Starting on Fri12/30/23 at 2326, Until Discontinued, Pain Severe (7-10) Group 3: potassium chloride (KLOR-CON M) extended release tablet 40 mEqJump to med 40 mEq, Oral, PRN, Starting on Fri01/02/24 at 0000, Until Discontinued, Per Potassium Replacement Protocol, May give alternative linked oral order (ordered as effervescent, packet, or liquid solution) if patient unable to tolerate tablet. K Lab Replacement Action 3.1 to 3.5 40 mEq ORAL x 1 Under 3.1 Refer to IV replacement protocol Recheck K level in AM. Protocol not for use in patients with CrCl less than 30 mL/min. Do not crush, chew, or suck on tablet. Tablet may also be broken in half and each half swallowed separately. Or potassium bicarb-citric acid (EFFER-K) effervescent tablet 40 mEqJump to med 40 mEq, Oral, PRN, Starting on Fri01/02/24 at 0000, Until Discontinued, Per Potassium Replacement Protocol, Administer as alternative if patient unable to tolerate oral tablet. K Lab Replacement Action 3.1 to 3.5 40 mEq ORAL x 1 Under 3.1 Refer to IV replacement protocol Recheck K level in AM. Protocol not for use in patients with CrCl less than 30 mL/min. Do not chew or crush. Dissolve flavored tablets completely in 3 to 4 ounces of cold water; unflavored tablets may be dissolved in 3 to 4 ounces of cold juice. Patient to sip slowly over a 5 to 10 minute period. May further dilute if GI adverse effects occur. Or potassium chloride 10 mEq/100 mL IVPB (Peripheral Line)Jump to med 10 mEq, IntraVENous, PRN, Starting on Fri01/02/24 at 0000, Until Discontinued, at 100 mL/hr, Per Potassium Replacement Protocol, K Lab Replacement Action 2.7-3.0 10 Meq IVPB x 6 doses (60 Meq Total) <2.7 CALL PHYSICIAN and 10 Meq IVPB x 6 doses (60 Meq Total) Infuse at 10meq/hr Repeat Potassium lab 1 hour after final administration. Protocol not for use in Patients with CrCl<30ml/min Ordered Prescriptions (unrec ognized section and content) Prescription Sig Dispensed Refills Start Date End Da te pantoprazole (PROTONIX) 40 MG tablet Take 1 tablet by mouth 2 times daily (before meals) 60 tablet 1 01/05/2024 03/05/2024 sucralfate (CARAFATE) 1 GM tablet Take 1 tablet by mouth every 8 hours 120 tablet 3 01/05/2024 potassium chloride (KLOR-CON M) 20 MEQ extended release tablet Take 1 tablet by mouth daily for 7 days 7 tablet 01/05/2024 01/12/2024 amLODIPine (NORVASC) 5 MG tablet Take 1 tablet by mouth daily 30 tablet 3 01/06/2024 carvedilol (COREG) 6.25 MG tablet Take 1 tablet by mouth 2 times daily (with meals) 60 tablet 3 01/05/2024 FOR RECORDS PERTAINING TO PATIENTS WHO ARE [...] BE BASED ON THE PRIMARY CLINICAL RECORDS. [employer] provides no warranty or guarantee of the accuracy or completeness of information in this document.
--- NOTE | 2025-01-22 10:36 | ECG_ITS ---
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
--- NOTE | 2025-01-22 10:36 | XR_ITS ---
The [place] [id number] Patient Name: RASHID BOOTH MRN: [id number] date: 1970 Sex: F Assigned Patient Location: ER Current Patient Location: ER Accession/Order Number: [id number] Exam Date: 01/22/2025 11:28 Report Date: 01/22/2025 12:09 At the request of: NESSA SILVER MD Procedure: XR chest 1V XR chest 1V 01/22/2025 11:39 AM SIGNS AND SYMPTOMS: Altered mental status, fever, weakness PROTOCOL: Frontal radiograph of the chest COMPARISON: 11/30/2024 FINDINGS: The trachea is midline. The heart and mediastinal structures are within normal limits. The lung parenchyma is clear. The bony thorax is intact. Degenerative changes are noted in the shoulders. XR/XR chest 1V IMPRESSION: No acute cardiopulmonary pathology. Impression dictated by: Lamonte Szymanski M.D. 01/22/2025 12:09 PM Dictation [facility] Electronically authenticated by: [id number] Y Date: 01/22/2025 12:09
--- NOTE | 2025-01-22 10:36 | CT_ITS ---
The [address] [address] Patient Name: RASHID BOOTH MRN: [id number] date: 1970 Sex: F Assigned Patient Location: ER Current Patient Location: ER Accession/Order Number: [id number] Exam Date: 01/22/2025 11:28 Report Date: 01/22/2025 12:08 At the request of: NESSA SILVER MD Procedure: CT head/brain wo con CT head/brain wo con 01/22/2025 11:39 AM SIGNS AND SYMPTOMS: Altered mental status, fever, weakness TECHNIQUE:Multi-detector CT axial slices of the brain were obtained without IV contrast. CT was performed with one or more of the following dose reduction techniques: Automated exposure control, adjustment of the mA and/or kV according to patient size, or use of iterative reconstruction technique. COMPARISON: None. FINDINGS: There is no shift of the midline structures, acute intracranial bleeding, mass effects, or evidence of acute ischemia. There is mild age-related cortical atrophy. There is mild periventricular white matter hypoattenuation. The ventricular system is normal in size. The brainstem and the cerebellum are unremarkable. There is polypoid mucosal thickening in the left maxillary sinus. The visualized intraorbital contents and the infratemporal soft tissues show no acute abnormality. The osseous structures in the skull base and the calvarium show no abnormality. CT/CT head/brain wo con IMPRESSION: No acute intracranial pathology. There is mild age-related cortical atrophy with chronic microvascular ischemic change. Impression dictated by: Lamonte Szymanski M.D. 01/22/2025 12:08 PM Dictation Location: [place] [address] Electronically authenticated by: [id number] Y Date: 01/22/2025 12:08
[2025-01-22 10:46] LABS: Glucose Urine UA NEGATIVE (NEGATIVE)
[2025-01-22 11:01] LABS: ABG PCO2 32.0 mmHg (35.0-45.0); Allen Test POSITIVE (POSITIVE); HCO3 ABG 23.5 mmol/L (22.0-26.0); Liters per Minute 3; O2 Mode NC; Oxygen Saturation ABG 94.8 %; PO2 ABG 68.9 mmHg (80.0-100.0)
[2025-01-22 11:02] LABS: Puncture Site R RADIAL
--- NOTE | 2025-01-22 11:07 | ED.AMS1 ---
HPI - Altered Mental Status General Chief Complaint: Altered Mental Status Stated Complaint: FEVER CONFUSION Time Seen by Provider: 01/22/25 10:19 Source: medical record Mode of arrival: ambulance Limitations: no limitations History of Present Illness HPI narrative: The patient is a 54-year-old female who almost few weeks ago discharged from sn[facility] facility , is coming to us brought by the EMS for concern of altered mental status over the last 24 hours. Almost started at 4 PM yesterday when the noted that she is getting more sleepy and not staying awake as much as she usually does. He also noticed that she is warm The patient had no cough and no nausea or vomiting but she had a Elaine catheter in place that was replaced a week ago. The patient is bedbound since she has been discharged as she is weak and according to the that he have to carry her to take her to the bathroom and move her around. Although she does have history of ankle fracture on the right leg and she had no splint on because they took it off because it was hurting and the patient is not according to the standing and that why they did not keep the splint on The patient denies any chest pain and abdominal pain and nausea or vomiting Related Data Home Medications ?Medication ?Instructions ?Recorded ?Confirmed amitriptyline 75 mg tablet 75 mg PO .QHS 01/22/25 01/22/25 oxycodone 10 mg tablet 10 mg PO Q6H PRN pain 01/22/25 01/22/25 potassium chloride 20 mEq 20 meq PO DAILY 01/22/25 01/22/25 tablet,extended release(part/cryst) pregabalin 50 mg capsule 50 mg PO Q8H 01/22/25 01/22/25 sennosides 8.6 mg-docusate sodium 1 tab PO BID PRN constipation 01/22/25 01/22/25 50 mg tablet (Senna Plus) Previous Rx's ?Medication ?Instructions ?Recorded acetaminophen 325 mg tablet 650 mg (2 x 325 mg) PO Q6H PRN 12/06/24 (Tylenol) Pain #0 tabs albuterol sulfate 2.5 mg/3 mL 2.5 mg (3 mL) inhalation Q6H PRN 12/06/24 (0.083 %) solution for nebulization SHORTNESS OF BREATH/WHEEZING #0 mL alprazolam 0.5 mg tablet 0.5 mg PO BID PRN anxiety 5 days 12/06/24 #10 tabs aspirin 325 mg tablet 325 mg PO DAILY #30 tabs 12/06/24 ipratropium 0.5 mg-albuterol 3 mg 3 ml inhalation RTBID #0 mL 12/06/24 (2.5 mg base)/3 mL nebulization soln metoprolol tartrate 25 mg tablet 25 mg PO BID #0 tabs 12/06/24 trazodone 50 mg tablet 50 mg PO HS #30 tabs 12/06/24 Allergies Allergy/AdvReac Type Severity Reaction Status Date / Time NSAIDS (Non-Steroidal AdvReac Intermediate Gastrointestinal Verified 01/22/25 13:50 Anti-Inflamma Upset Review of Systems ROS Status of ROS 10 or more systems reviewed and unremarkable except as noted in history and below [facility] Medical History (Updated 01/22/25 @ 13:56 by Isha Holley MD) HTN (hypertension) ?I10 - Essential (primary) hypertension (ICD-10) Thickening of wall of gallbladder ?K82.8 - Other specified diseases of gallbladder (ICD-10) Syncope ?R55 - Syncope and collapse (ICD-10) Peripheral neuropathy ?G62.9 - Polyneuropathy, unspecified (ICD-10) Chronic bilateral back pain ?M54.9 - Dorsalgia, unspecified (ICD-10) ?G89.29 - Other chronic pain (ICD-10) Afib ?I48.91 - Unspecified atrial fibrillation (ICD-10) Aortic aneurysm ?I71.9 - Aortic aneurysm of unspecified site, without rupture (ICD-10) GI bleed ?K92.2 - Gastrointestinal hemorrhage, unspecified (ICD-10) Surgical History Previous back surgery ?Z98.890 - Other specified postprocedural states (ICD-10) Status post abdominoplasty ?Z98.890 - Other specified postprocedural states (ICD-10) Status post abdominoplasty ?Z98.890 - Other specified postprocedural states (ICD-10) H/O hysterectomy with oophorectomy H/O: hysterectomy ?Z90.710 - Acquired absence of both cervix and uterus (ICD-10) Gastric bypass status for obesity ?Z98.84 - Bariatric surgery status (ICD-10) Family History Mother Family history of cancer Family history of hypertension Social History (Updated 11/30/24 @ 21:55 by aKt Escobedo RN) Within the past year, how often did you have a drink containing alcohol: 2-4 times a month Within the past year, how often did you have six or more drinks on one occasion: never Smoking status: Former smoker Non-prescribed substance use: denies use Previous occupational history: disabled Known occupational exposures/hazards: No Highest level of school completed/degree received: Bachelor's degree Are you now , , , , never or living with a partner: In a typical week, how many times do you talk on the telephone with family, friends, or neighbors: 3 or more times per week Little interest or pleasure in doing things: not at all Feeling down, depressed, or hopeless: not at all Feel stressed/tense/nervous/anxious/difficulty sleeping: rather much Life stressor details: medical condition Exam Narrative Exam Narrative: Nurses notes and vital signs reviewed and patient is not hypoxic. General: Well-appearing and in no apparent distress. Skin: Warm, dry, no pallor noted. No rash. Head: Normocephalic, atraumatic. Neck: Supple, non-tender. Eye: Pupils are equal, round and EOMI. No scleral icterus. Ears, Nose, Mouth, and Throat Oral mucosa is moist, no posterior oropharynx erythema, uvula is mid-line Cardiovascular: Regular Rate and Rhythm without murmur, gallop or rub. Respiratory: No accessory muscle use or respiratory distress. Lungs are clear to auscultation, no wheezing, rales or rhonchi Chest Wall: no tenderness Back: No midline thoracic or lumbar vertebral tenderness. No CVA tenderness Musculoskeletal: normal ROM, no calf or popliteal tenderness, no lower extremity edema/swelling no vascular injury detected in the patient have a good anterior tibia bilaterally GI: Abdomen is soft, non-distended. Normal bowel sounds. No masses appreciated. No tenderness to palpation. No rebound, guarding, or rigidity noted. Neurological: A&O x4. No cranial nerve dysfunction observed. The patient have bilateral lower extremity weakness that is chronic according to the Constitutional Vital Signs, click to edit/add: Last Vital Signs Temp 100.0 F 01/22/25 13:33 Pulse 126 H 01/22/25 13:20 Resp 28 H 01/22/25 13:20 BP 117/80 01/22/25 12:30 Pulse Ox 98 01/22/25 13:20 O2 Del Method Nasal Cannula 01/22/25 10:48 O2 Flow Rate 2 01/22/25 10:48 Course Vital Signs Vital signs: Vital Signs Temperature 103.2 F H 01/22/25 10:20 Pulse Rate 141 H 01/22/25 10:20 Respiratory Rate 24 H 01/22/25 10:20 Blood Pressure 114/89 01/22/25 10:20 Pulse Oximetry 92 L 01/22/25 10:20 Oxygen Delivery Method Nasal Cannula 01/22/25 10:20 Oxygen Delivery Flow Rate 2 01/22/25 10:20 Temperature 100.0 F 01/22/25 13:33 Pulse Rate 126 H 01/22/25 13:20 Respiratory Rate 28 H 01/22/25 13:20 Blood Pressure 117/80 01/22/25 12:30 Pulse Oximetry 98 01/22/25 13:20 Oxygen Delivery Method Nasal Cannula 01/22/25 10:48 Oxygen Delivery Flow Rate 2 01/22/25 10:48 MDM - Altered Mental Status MDM Narrative Medical decision making narrative: The patient EKG in the ER showing sinus tachycardia with a heart rate of [address] elevation or depression On arrival it was noted the patient saturating well on her 2 to 3 L nasal cannula at 96% The patient initially had a fever that was 103 and she was provided with Tylenol and 1.5 L of normal saline after which her fever responded and she said eventually she was a lot better CT of the head showed no acute pathology Chest x-ray showed no acute pathology It was noted that the patient ABG shows hypoxemia still on her 2 to 3 L of nasal cannula with alkalosis CT angio of the chest obtained because of the patient tachycardia and the hypoxemia seen on the ABGs The CT angio shows a chronic embolus picture although the patient never had a history of PE but the patient is a high risk with the fact that she is bedridden since she has been discharged The patient was started on Zosyn after obtaining blood culture to cover for UTI The patient lactic acid was 1.9 and magnesium was 1.7--- patient provided with 1 g IV magnesium The patient case was discussed with The patient was started on Lovenox 1 dose of therapeutic at the moment and I did present to the bedside and explained to the patient that she have a finding of possible chronic embolus on the CT and I did explain to her that although she have a concern of previous bleeding almost on a year ago and the patient does not have any active bleeding at the moment or any black or discolored stool that we still need to cover for treatment of PE and monitor for any bleeding with further discussion to be carried regarding management as well Lab Data Labs: Lab Results 01/22/25 01/22/25 01/22/25 Range/Units 10:25 10:47 11:03 WBC 10.7 (4.0-11.0) 10^3/uL RBC 4.12 L (4.20-5.40) 10^6/uL Hgb 11.4 L (12.0-16.0) g/dL Hct 36.3 (36.0-48.0) % MCV 88.1 (81.0-99.0) fL MCH 27.7 (26.7-34.0) pg MCHC 31.4 (29.9-35.2) g/dL RDW 19.4 H (11.0-15.0) % Plt Count 177 (150-450) 10^3/uL MPV 10.3 (9.5-13.5) fL Neut % (Auto) 85.8 H (43.0-75.0) % Lymph % (Auto) 8.1 L (20.5-60.0) % [place] % (Auto) 5.1 (1.7-12.0) % Eos % (Auto) 0.1 L (0.9-7.0) % Baso % (Auto) 0.2 (0.2-2.0) % Neut # (Auto) 9.2 H (1.4-6.5) 10^3/uL Lymph # (Auto) 0.9 L (1.2-3.8) 10^3/uL [place] # (Auto) 0.6 (0.3-0.8) 10^3/uL Eos # (Auto) 0.0 (0.0-0.7) 10^3/uL Baso # (Auto) 0.0 (0.0-0.1) 10^3/uL Abs Immat Gran (auto) 0.07 H (0.00-0.03) 10^3/uL Imm/Tot Granulo (auto) 0.7 H (0.0-0.5) % PT 11.1 (9.0-11.6) sec INR 1.05 Puncture Site R radial ABG pH 7.475 H (7.350-7.450) ABG pCO2 32.0 L (35.0-45.0) mmHg ABG pO2 68.9 L (80.0-100.0) mmHg ABG HCO3 23.5 (22.0-26.0) mmol/L ABG O2 Saturation 94.8 % ABG Base Excess 0 (-2.0-2.0) mmol/L Hubert Test Positive (POSITIVE) O2 Liters/Min 3 Sodium 137 (136-145) mmol/L Potassium 3.5 (3.5-5.1) mmol/L Chloride 102 (98-107) mmol/L Carbon Dioxide 25.3 (21.0-32.0) mmol/L Anion Gap 13.2 BUN 3.0 L (7.0-18.0) mg/dL Creatinine 0.83 (0.55-1.02) mg/dL Est GFR ( Amer) >60 (>=60 mL/min/1.73m^2) Est GFR (Non-Af Amer) >60 (>=60 mL/min/1.73m^2) BUN/Creatinine Ratio 3.6 Glucose 102 (74-106) mg/dL Lactate 1.9 (0.4-2.0) mmol/L Calcium 8.4 L (8.5-10.1) mg/dL Magnesium 1.7 L (1.8-2.4) mg/dL Total Bilirubin 1.7 H (0.2-1.0) mg/dL AST 99 H (15-37) U/L ALT 20 (14-59) U/L Alkaline Phosphatase 202 H (46-116) U/L Troponin I High Sens 28.4 (4.0-51.3) pg/mL Total Protein 7.0 (6.4-8.2) g/dL Albumin 1.8 L (3.4-5.0) g/dL Globulin 5.2 g/dL Albumin/Globulin Ratio 0.3 Urine Color [place] A (YELLOW) Urine Clarity Cloudy A (CLEAR) Urine pH 6.0 (5.0-9.0) Ur Specific Joseph 1.020 (1.005-1.025) Urine Protein 100 A (NEG/TRACE) mg/dL Urine Glucose (UA) Negative (NEGATIVE) mg/dL Urine Ketones Negative (NEGATIVE) mg/dL Urine Occult Blood Moderate A (NEGATIVE) Urine Nitrite Positive A (NEGATIVE) Urine Bilirubin Small A (NEGATIVE) Urine Urobilinogen 4.0 A (0.2-1.0) EU/dL Ur Leukocyte Esterase Moderate A (NEGATIVE) Urine RBC 2-5 A (0-2) #/HPF Urine WBC >100 A (NONE SEEN) #/HPF Ur Squamous Epith Cells Rare (NONE/RARE) #/LPF Urine Crystals None seen (None Seen) #/HPF Urine Bacteria Large A (NONE SEEN) #/HPF Urine Casts None seen (NONE SEEN) #/LPF Urine Mucus None seen (NONE SEEN) Ur [place] Indicated[place] [place] Discharge Chief Complaint: Altered Mental Status Clinical Impression: UTI (urinary tract infection), Sepsis, AMS (altered mental status), Chronic pulmonary embolism, Hypomagnesemia Patient Disposition: Admitted As Inpatient Time of Disposition Decision: 13:40
[2025-01-22 11:08] LABS: Cast Seen? NONE SEEN #/LPF (NONE SEEN); Crystals Seen? None Seen #/HPF (None Seen); Urine Culture Indicated YES-FRMC
[2025-01-22 11:27] LABS: Hematocrit 36.3 % (36.0-48.0); Hemoglobin 11.4 g/dL (12.0-16.0); Immature Granulocytes Abs Auto 0.07 10^3/uL (0.00-0.03); Immature Granulocytes Pct Auto 0.7 % (0.0-0.5); Lymphocytes Absolute Auto 0.9 10^3/uL (1.2-3.8); Mean Corpuscular HGB Conc 31.4 g/dL (29.9-35.2); Mean Corpuscular Hemoglobin 27.7 pg (26.7-34.0); Mean Corpuscular Volume 88.1 fL (81.0-99.0); Platelet Count 177 10^3/uL (150-450); Red Blood Count 4.12 10^6/uL (4.20-5.40); White Blood Count 10.7 10^3/uL (4.0-11.0)
[2025-01-22 11:40] LABS: INR 1.05; Prothrombin Time 11.1 sec (9.0-11.6)
[2025-01-22 11:45] LABS: Lactate/Lactic Acid 1.9 mmol/L (0.4-2.0)
[2025-01-22] MEDS: 0.9 % SODIUM CHLORIDE 1,000 ML 500 ML IV (11:50)
[2025-01-22] MEDS: PIPERACILLIN SODIUM/TAZOBACTAM 3.375 GM in 0.9 % SODIUM CHLORIDE 50 ML IV (11:50)
[2025-01-22 11:51] LABS: Alanine Aminotransferase 20 U/L (14-59); Albumin Globulin Ratio 0.3; Albumin Level 1.8 g/dL (3.4-5.0); Alkaline Phosphatase 202 U/L (46-116); Anion Gap 13.2; Aspartate Amino Transferase 99 U/L (15-37); Blood Urea Nitrogen 3.0 mg/dL (7.0-18.0); Calcium 8.4 mg/dL (8.5-10.1); Carbon Dioxide 25.3 mmol/L (21.0-32.0); Chloride 102 mmol/L (98-107); Estimated GFR (African America >60 (>=60 mL/min/1.73m^2); Estimated GFR (Non-African Ame >60 (>=60 mL/min/1.73m^2); Globulin 5.2 g/dL; Glucose 102 mg/dL (74-106); Magnesium 1.7 mg/dL (1.8-2.4); Potassium 3.5 mmol/L (3.5-5.1); Sodium 137 mmol/L (136-145); Total Protein 7.0 g/dL (6.4-8.2)
[2025-01-22] MEDS: ACETAMINOPHEN 650 MG RECTAL SUPPOSITORY PR (11:52)
--- NOTE | 2025-01-22 12:02 | CT_ITS ---
[address] [address] Patient Name: RASHID BOOTH MRN: [id number] date: 1970 Sex: F Assigned Patient Location: ER Current Patient Location: ER Accession/Order Number: [id number] Exam Date: 01/22/2025 13:00 Report Date: 01/22/2025 13:30 At the request of: NESSA SILVER MD Procedure: CT angio chest CT angio chest 01/22/2025 1:15 PM SIGN AND SYMPTOMS: ^tachycardia hypoxemia, fever, weakness CONTRAST: 100 mL of intravenous Omnipaque 350 TECHNIQUE: Multidetector CT axial slices of the chest were obtained with IV contrast. Multiplanar and 3-D reformats were performed and viewed on a separate workstation and reviewed to further define anatomy and possible pathology. CT was performed with one or more of the following dose reduction techniques: Automated exposure control, adjustment of the mA and/or kV according to patient size, or use of iterative reconstruction technique. COMPARISON: 09/03/2023. FINDINGS: Lower neck: Thyroid gland within normal limits, no supraclavicle adenopathy. Vessels: Atherosclerotic changes are noted in the coronary arteries. There are strand-like filling defects within the bifurcation of the right main pulmonary artery most consistent with chronic pulmonary emboli. Mediastinum and [place]: Within normal limits. Heart: Normal size. No pericardial effusion. Airways: Within normal limits Lungs: Within normal limits. Pleura: Within normal limits. Chest Wall: Within normal limits. Upper Abdomen: Within normal limits. Bones: Multiple healed left-sided rib fractures are noted. CT/CT angio chest IMPRESSION: There are strand-like filling defects within the bifurcation of the right main pulmonary artery most consistent with chronic pulmonary emboli. No focal consolidation, pleural effusion, or pneumothorax. Impression dictated by: Lamonte Szymanski M.D. 01/22/2025 1:30 PM Dictation Location[facility] Electron[facility] authenticated by: [id number] Y Date: 01/22/2025 13:30
--- NOTE | 2025-01-22 13:34 | PC.NURSE ---
Pts and mother at bedside After returning from CT this nurse revitalized patient, temperature now down to 100.0 Pt alert and talking - telling stories of the past and asking questions abut her care plan Pt and her family updated on findings and most likely plan of care Pt verbalized understanding Pt drink several sips of water without a problem Denied further needs or questions at this time
[2025-01-22] MEDS: ENOXAPARIN SODIUM 100 MG/ML SYRINGE 85 MG SUBQ (14:11)
[2025-01-22] MEDS: MAGNESIUM SULFATE/D5W 1 GM/100 ML PREMIX IV (14:11)
--- OUTSIDE RECORDS SUMMARY | 2025-01-22 14:50 | XMS_ITS | CCD ---
Author Organization [facility] Care Team Providers Care Sports Agent Name Role Phone REJI, RONAL H. Unavailable Unavailable MAUREEN MITCHELL Unavailable Unavailable REJI, RONAL HAna Unavailable Unavailable REJI, RONAL H. Unavailable Unavailable REJI, RONAL HAna Unavailable Unavailable MAUREEN MITCHELL Unavailable Unavailable MAUREEN MITCHELL Primary Care Physician [phone] MAUREEN MITCHELL Referring Unavailable MAUREEN MITCHELL Primary Care Unavailable NEW PARKINSON Attending Unavailable NEW PARKINSON Admitting Unavailable NILL, DR ALEXANDRA Attending Unavailable NILL, DR ALEXANDRA Admitting Unavailable WEST, DR TUYET Linn Consulting Unavailable MITCHELL, DR MAUREEN Morales Primary Care Unavailable NILL, DR ALEXANDRA Consulting Unavailable MATT, DR CHONG Schmitz Attending Unavailabl e MATT, DR CHONG Schmitz Consulting Unavailgracie GUTIERREZ, DR CHONG Schmitz Admitting Unavailabl e MITCHELL, DR MAUREEN Morales Primary Care Unavailable MARGARET PARRA Consulting Unavailable MANDO, DR MAUREEN Morales Admitting Unavailable MITCHELL, DR MAUREEN Morales Attending Unavailable MANDO, DR MAUREEN Morales Consulting Unavailable MANDO, DR MAUREEN Morales Primary Care Unavailable MITCHELL, DR MAUREEN Morales Admitting Unavailable MITCHELL, DR MAUREEN Morales Attending Unavailable MANDO, DR MAUREEN Morales Consulting Unavailable MANDO, DR MAUREEN Morales Primary Care Unavailable MANDO, DR MAUREEN Morales Admitting Unavailable MANDO, DR MAUREEN Morales Attending Unavailable MANDO, DR MAUREEN Morales Consulting Unavailable MANDO, DR MAUREEN Morales Primary Care Unavailable Maureen Mitchell Unavailable Otoniel Kelly Unavailable Maureen Mitchell MD Primary Care Provider Maureen Mitchell MD Primary Care Provider [phone] Yossi Hunter MD Unavailable DOROTHY SANTORO Attending Unavailable MACING, DOROTHY Garcia Referring Unavailable DOROTHY SANTORO Referring Unavailable DARLENE GONZALEZ Attending Unavailable LISA, DARLENE Pabon Referring Unavailable DARLENE GONZALEZ Referring Unavailable TARUN BARRETT Admitting Unavailable NBA OSCAR Referring Unavailable MAUREEN MITCHELL Primary Care Unavailable TL SALAZAR Consulting Unavailable MASHALLEE I, YAMILET Attending Unavailable MARGARET GREER Consulting Unavailable MARGARET SULLIVAN Consulting Unavailable OMAR HOOVER Consulting Unavailable ISELA HENSLEY Consulting Unavailable MASHALEH I, MOHAMMAD Consulting Unavailable THUMMALAPALLY, JONNAHEETH Consulting Unavaila MARLA SanzIKH Referring Unavailable MANDO MAUREEN Primary Care Unavailable SANDY HARVEY Consulting Unavailable KELI RABAGO Attending Unavailable AVASTHI, CHRISTOPHER Admitting Unavailable MALLY HOPPER Consulting Unavailable MICHAEL ARELLANO Consulting UnavailMARGARET Parekh Consulting Unavailable AVASTHI, CHRISTOPHER Consulting Unavailable Bhupinder Shelton MD Attending Unavailable ABIOSE, YOSSI K Referring Unavailable MITCHELL, MAUREEN E Primary Care Unavailable ABIOSE, YOSSI K Referring Unavailable MITCHELL, MAUREEN E Primary Care Unavailable Mitchell, Maureen E Primary Care Unavailable Mando Maureen E Attending Unavailable Mitchell, Maureen E [...] Provider Maureen Mitchell MD Primary Care Provider [phone] CRISTOBAL, OLUREMI Consulting Unavailable BLANCA, JOVANA F Attending Unavailable BLANCA, SELVON F Admitting Unavailable MANDO MAUREEN Primary Care Unavailable Maureen Mitchell MD Primary Care Provider Thi Vidal APRN Attending Provider [phone] Isha Holley MD Attending Provider [phone] Jackson Mondragon MD Attending Provider Maureen Mitchell MD Attending Provider [phone] Alyssa Romo CMA Attending Provider UnavailNeli Go Attending Unavailable MAUREEN MITCHELL Referring Unavailable Allergies Allergy Classification Reported Allergen(s) Allergy Type Date of Onset Reaction(s) Facility Acetaminophen (1 source) Acetaminophen Drug Allergy 09-22-19 [facility] Opioid Agonists (1 source) Codeine Drug Allergy 09-22-19 [facility] Sulfonamides (antibiotic) (1 source) Sulfonamides (Antibiotic) Drug Allergy 09-22-19 24 [facility] venlafaxine (1 source) venlafaxine Drug Allergy 09-22-19 24 [facility] (20 sources) Non-steroidal anti-inflammator y agent; Translations: [NSAIDs] Drug allergy Unknown (qualifier value) [facility] (3 sources) Sulfonamides (Antibiotic); Translations: [sulfa drugs] Drug allergy Unknown (qualifier value) [facility] (20 sources) venlafaxine; Translations: [venlafaxine] Drug Allergy 07-16-19 19 Unknown (qualifier value), Unknown [facility] (4 sources) NSAIDs; Translations: [NSAIDS (NON-STEROIDAL ANTI-INFLAMMATOR Y DRUG)] Drug allergy (disorder) 09-06-19 16 [facility] Repository (1 source) Tylenol-Codeine #3 Drug allergy (disorder) 01-23-20 16 [facility] (20 sources) Acetaminophen / Codeine Drug Allergy Unknown [email or web address] Other (18 sources) Sulfonamides (Antibiotic) Drug allergy Unknown [email or web address] Other (20 sources) Codeine; Translations: [CODEINE] Drug Allergy 06-09-19 14 Other, Other (See Comments) [facility] (16 sources) Codeine Drug Allergy Unknown [email or web address] Other (4 sources) patient allergy list reviewed by nurse or physicia Propensity to adverse reactions 06-09-19 14 Comment:Done [email or web address] Other (4 sources) Allergies Reconciled Propensity to adverse reactions Unknown [email or web address] Other (16 sources) Sulf-10 Drug allergy Unknown [email or web address] Other (12 sources) cow milk allergenic extract; Translations: [MILK] Drug Allergy 12-11-19 23 GI Upset, Other (See Comments) [facility] Work Phone: (10 sources) Non-steroidal anti-inflammator y agent Drug Intolerance 09-06-19 16 Other, Other (See Comments) [facility] Work Phone: (17 sources) Acetaminophen; Translations: [acetaminophen] Drug Allergy 08-26-19 24 Hives, decreased respirations while sleeping [facility] (17 sources) Sulfonamides (Antibiotic); Translations: [Sulfa (Sulfonamide Antibiotics)] Allergy to substance 08-26-19 24 Hives [facility] (18 sources) NSAIDS (Non-Steroidal Anti-Inflamma; Translations: [NSAIDS (Non-Steroidal Anti-Inflamma] Allergy to substance 08-26-19 24 bleeding [facility] (2 sources) VENLAFAXINE ANALOGUES; Translations: [VENLAFAXINE ANALOGUES] Propensity to adverse reactions to drug (disorder) 10-06-[address] [facility] Repository (1 source) Codeine Drug Allergy 04-29-20 [facility] Repository (1 source) venlafaxine Drug Allergy 04-29-20 24 [facility] Repository (2 sources) Acetaminophen / Codeine Drug Allergy 09-06-19 16 Other (See Comments) [facility] Medications Current Medications Medication Drug Class(es) [...] at least 2 minutes. polyethylene glycol 3350 77218 mg powder for oral solution (1 source) [...] sources) Start: 01-06-2025 take 1 capsule by [facility] twice daily Start: 12-30-2024 End: 01-06-2025 take [...] Start: 12-30-2023 End: 12-31-2023 Oral, ONCE, On 8/6/24 at 2345, For 1 dose, Take 5 [...] Discontinued 500 MG PO Twice daily 14 January 30, 2024 12:00am February 26, 2024 3:08pm cholecalciferol 1.25 mg oral capsule (20 sources) Vitamin D Start: 07-23-2023 End: 09-23-2023 take 1 capsule by mouth two times weekly Cholecalciferol (Vitamin D3) 1,250 mcg (50,000 unit) capsule Discontinued 1250 MCG PO Twice a Week July 24, 2023 9:40am September 23, 2023 11:41am Start: 03-10-2023 take 1 capsule by [facility] two times weekly cholecalciferol (Vitamin D-3) 50,000 unit capsule Take 1 capsule (50,000 Units) by mouth 2 times a week. 03/10/2023 Active take 1 capsule by [facility] two times weekly Vitamin D3 1.25 MG (84791 UT) TAKE 1 CAPSULE BY MOUTH TWICE [...] 2:06pm docusate sodium 50 mg / sennosides, fdc 8.6 mg oral tablet (3 sources) Start: 12-13-2024 End: 12-30-2024 take 1 tablet by mouth twice daily Sennosides-Docusat e Sodium 8.6-50 mg tablet Discontinued 1 TAB-CAP PO Twice daily December 13, 2024 12:00am December 30, 2024 12:45pm Start: 06-08-2024 take 1 tablet by steve th twice daily 1 tablet, Oral, 2 TIMES [...] 1748, Until Fri06/08/24 at 1747, Thi Jones: cabinet override, Thi Jones: cabinet override Start: 06-08-2024 End: 06-08-2024 50 mcg, [...] Start: 01-01-2024 End: 01-01-2024 PRN, Starting on Corinne 01/01/24 at 1737, Until Fri01/01/24 at 1826, Intra-op [...] 4 hours as needed for pain 90 June 30, 2024 July 13, 2024 3:03pm Start: 04-08-2024 End: 04-08-2024 take 1 tablet by mouth every four hours as needed for pain Oxycodone 20 mg tablet Discontinued 20 MG PO Every 4 hours as needed for pain 42 April 08, 2024 April 08, 2024 10:31am [...] 2023 12:17pm take 2 tablets by [facility] every four hours as needed for pain [...] 01/01/24 at 1015, Until 01/04/24 at 1014 Start: 12-31-2023 End: 01-01-2024 take 8 mg intravenously every hour 8 mg/hr (10 mL/hr), IntraVENous, CONTINUOUS, Starting on Fri12/31/23 at 0200, Until Corinne 01/01/24 at 1004 Pantoprazole 40 mg tablet,delayed release [...] mL/hr, Administer over 121 Minutes, ONCE, On Corinne 01/01/24 at 1500, For 1 dose Start: 12-30-2023 [...] 01-01-2024 IntraVENous, at 100 mL/hr, ONCE, On Corinne 01/01/24 at 1815, For 1 dose sucralfate 1000 [...] 11-14-2021 Chronic Other aftercare (3 sources) Other equipment [employer] (current) drug therapy; Translations: [OTH HALFWAY CURRENT DRUG THERAPY] Onset: Episodic Other aftercare (16 sources) Patient encounter [...] 8 10-19-2017 Episodic Other aftercare (1 source) rn long term care (current) use of aspirin; 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] Onset: 2 Episodic Other aftercare (3 sources) Prescribed medication regimen behavior finding; Translations: [rn long term care (current) use of opiate analgesic] Onset: 4 [...] Reference Range Facil ity BASIC METABOLIC PANELon 12-25 Anion gap [Moles/Vol] 9 mmol/L Normal 5-15 [facility] Comment on above: Performed By: #### B MP #### [facility] ([facility]) [address] [place] [address] VIR Calcium [Mass/Vol] 8.5 mg/dL Normal 8.5-10.5 [facility] Comment on above: Performed By: #### B MP #### [facility] ([facility]) [address] [place] [address] VIR Chloride [Moles/Vol] 105 mmol/L Normal 98-109 [facility] Comment on above: Performed By: #### B MP #### [facility] ([facility]) [address] [place] [address] VIR CO2 [Moles/Vol] 25 mmol/L Normal 22-32 [facility] Comment on above: Performed By: #### B MP #### [facility] ([facility]) [address] [place] [address] [place] [address] VIR Creatinine [Mass/Vol] 0.66 mg/dL Normal 0.40-1.00 [facility] Comment on above: Result Comment: METH OD TRACEABLE TO IDMS STANDARD Performed By: #### B MP #### [facility] ([address] [place] [address] VIR EGFR (CKD-EPI) NON-RACE DEPENDENT >^90 Normal >=60 [facility] Comment on above: Result Comment: eGFR not reported due to non-numeric value for Creatinine. EGFR not calculated due to patient's gender not being defined. Reported eGFR is based on the CKD-EPI 2021 equation that does not use a race coefficient. Performed By: #### B MP #### [facility] ([address] [place] [address] VIR Glucose [Mass/Vol] 123 mg/dL High 65-99 [facility] Comment on above: Performed By: #### B MP #### [facility] ([address] [place] [address] VIR Potassium [Moles/Vol] 3.6 mmol/L Normal 3.5-5.0 [facility] Comment on above: Performed By: #### B MP #### [facility] ([address] [place] [address] VIR Sodium [Moles/Vol] 139 mmol/L Normal 134-146 [facility] Comment on above: Performed By: #### B MP #### [facility] ([address] [place] [address] VIR Urea nitrogen [Mass/Vol] mg/dL Low 5-23 [facility] Comment on above: Performed By: #### B MP #### [facility] ([address] [address] VIR CBC WITH AUTO DIFFERENTIALon 01-20-2025 BASOPHILS ABSOLUTE COUNT (10*3/UL) BY AUTOMATED COUNT 0.0 10*3/uL Normal 0.0-0.2 [facility] Comment on above: Performed By: #### C BCA #### [facility] ([address] [address] VIR BASOPHILS RELATIVE PERCENT BY AUTOMATED COUNT 0.5 % Normal [facility] Comment on above: Performed By: #### C BCA #### [address] [address] VIR CELLAVISION DIFFERENTIAL TYPE AUTOMATED DIFFERENTIAL Normal [facility] Comment on above: Performed By: #### C BCA #### [facility] ([address] [address] VIR Eosinophils (Bld) [#/Vol] 0.1 10*3/uL Normal 0.0-0.4 [facility] Comment on above: Performed By: #### C BCA #### [address] [address] VIR EOSINOPHILS RELATIVE PERCENT BY AUTOMATED COUNT 1.4 % Normal [facility] Comment on above: Performed By: #### C BCA #### [address] [address] VIR Erythrocyte distribution width (RBC) [Ratio] 20.7 % High 11.5-15 [facility] Comment on above: Performed By: #### C BCA #### [address] [address] VIR Hematocrit (Bld) [Volume fraction] 32.9 % Low 35-47 [facility] Comment on above: Performed By: #### C BCA #### [facility] ([address] [address] VIR Hemoglobin (Bld) [Mass/Vol] 10.5 g/dL Low 11.7-15.5 [facility] Comment on above: Performed By: #### C BCA #### [facility] ([address] [address] VIR LYMPHOCYTES ABSOLUTE COUNT (10*3/UL) BY AUTOMATED COUNT 1.3 10*3/uL Normal 1.0-3.5 [facility] Comment on above: Performed By: #### C BCA #### [address] [address] VIR LYMPHOCYTES RELATIVE PERCENT BY AUTOMATED COUNT 27.1 % Normal [facility] Comment on above: Performed By: #### C BCA #### [facility] ([address] [address] VIR MCH (RBC) [Entitic mass] 27.3 pg Normal 27-34 [facility] Comment on above: Performed By: #### C BCA #### [facility] ([address] [address] VIR MCHC (RBC) [Mass/Vol] 31.8 g/dL Low 32-36 [facility] Comment on above: Performed By: #### C BCA #### [facility] ([address] [address] VIR MCV (RBC) [Entitic vol] 86 fL Normal 80-100 [facility] Comment on above: Performed By: #### C BCA #### [facility] ([address] [address] VIR MONOCYTES ABSOLUTE COUNT (10*3/UL) BY AUTOMATED COUNT 0.3 10*3/uL Normal 0.0-0.9 [facility] Comment on above: Performed By: #### C BCA #### [facility] ([address] [address] VIR MONOCYTES RELATIVE PERCENT BY AUTOMATED COUNT 7.4 % Normal [facility] Comment on above: Performed By: #### C BCA #### [facility] ([address] [address] VIR NEUTROPHILS ABSOLUTE COUNT BY AUTOMATED COUNT 3.0 10*3/uL Normal 1.5-6.6 [facility] Comment on above: Performed By: #### C BCA #### [facility] ([address] [address] VIR NEUTROPHILS RELATIVE PERCENT BY AUTOMATED COUNT 63.6 % Normal [facility] Comment on above: Performed By: #### C BCA #### [facility] ([address] [address] VIR Platelet mean volume (Bld) [Entitic vol] 7.8 fL Normal 7-12 [facility] Comment on above: Performed By: #### C BCA #### [facility] ([address] [address] VIR Platelets (Bld) [#/Vol] 283 10*3/uL Normal 150-450 [facility] Comment on above: Performed By: #### C BCA #### [facility] ([address] [address] VIR RBC COUNT 3.83 X10E12/L Normal 3.8-5.2 [facility] Comment on above: Performed By: #### C BCA #### [facility] ([address] [address] VIR WBC (Bld) [#/Vol] 4.7 10*3/uL Normal 4-11 [facility] Comment on above: Performed By: #### C BCA #### [facility] ([address] [place] [address] VIR BASIC METABOLIC PANELon - Anion gap [Moles/Vol] 9 mmol/L Normal 5-15 [facility] Comment on above: Performed By: #### B MP #### [facility] ([address] [place] [address] VIR Calcium [Mass/Vol] 8.1 mg/dL Low 8.5-10.5 [facility] Comment on above: Performed By: #### B MP #### [facility] ([address] [place] [address] VIR Chloride [Moles/Vol] 101 mmol/L Normal 98-109 [facility] Comment on above: Performed By: #### B MP #### [facility] ([address] [place] [address] VIR CO2 [Moles/Vol] 27 mmol/L Normal 22-32 [facility] Comment on above: Performed By: #### B MP #### [facility] ([address] [place] [address] VIR Creatinine [Mass/Vol] 0.38 mg/dL Low 0.40-1.00 [facility] Comment on above: Result Comment: METH OD TRACEABLE TO IDMS STANDARD Performed By: #### B MP #### [facility] ([address] [place] [address] VIR EGFR (CKD-EPI) NON-RACE DEPENDENT >^90 Normal >=60 [facility] Comment on above: Result Comment: eGFR not reported due to non-numeric value for Creatinine. Reported eGFR is based on the CKD-EPI 2020 equation that does not use a race coefficient. Performed By: #### B MP #### [facility] ([address] [address] VIR Glucose [Mass/Vol] 99 mg/dL Normal 65-99 [facility] Comment on above: Performed By: #### B MP #### [facility] ([address] [place] [address] VIR Potassium [Moles/Vol] 3.0 mmol/L Low 3.5-5.0 [facility] Comment on above: Performed By: #### B MP #### [facility] ([address] [place] [address] VIR Sodium [Moles/Vol] 137 mmol/L Normal 134-146 [facility] Comment on above: Performed By: #### B MP #### [facility] ([address] [place] [address] VIR Urea nitrogen [Mass/Vol] mg/dL Low 5-23 [facility] Comment on above: Performed By: #### B MP #### [facility] ([address] [place] [address] VIR CBC WITH AUTO DIFFERENTIALon 01-07-2025 BASOPHILS ABSOLUTE COUNT (10*3/UL) BY AUTOMATED COUNT 0.0 10*3/uL Normal 0.0-0.2 [facility] Comment on above: Performed By: #### C BCA #### [facility] ([address] [place] [address] VIR BASOPHILS RELATIVE PERCENT BY AUTOMATED COUNT 0.4 % Normal [facility] Comment on above: Performed By: #### C BCA #### [facility] ([address] [place] [address] VIR CELLAVISION DIFFERENTIAL TYPE AUTOMATED DIFFERENTIAL Normal [facility] Comment on above: Performed By: #### C BCA #### [facility] ([address] [place] [address] VIR Eosinophils (Bld) [#/Vol] 0.1 10*3/uL Normal 0.0-0.4 [facility] Comment on above: Performed By: #### C BCA #### [facility] ([address] [address] VIR EOSINOPHILS RELATIVE PERCENT BY AUTOMATED COUNT 2.8 % Normal [facility] Comment on above: Performed By: #### C BCA #### [facility] ([address] [address] VIR Erythrocyte distribution width (RBC) [Ratio] 18.4 % High 11.5-15 [facility] Comment on above: Performed By: #### C BCA #### [facility] ([address] [address] VIR Hematocrit (Bld) [Volume fraction] 25.1 % Low 35-47 [facility] Comment on above: Performed By: #### C BCA #### [facility] ([address] [address] VIR Hemoglobin (Bld) [Mass/Vol] 8.2 g/dL Low 11.7-15.5 [facility] Comment on above: Performed By: #### C BCA #### [facility] ([address] [address] VIR LYMPHOCYTES ABSOLUTE COUNT (10*3/UL) BY AUTOMATED COUNT 1.2 10*3/uL Normal 1.0-3.5 [facility] Comment on above: Performed By: #### C BCA #### [facility] ([address] [address] VIR LYMPHOCYTES RELATIVE PERCENT BY AUTOMATED COUNT 39.0 % Normal [facility] Comment on above: Performed By: #### C BCA #### [facility] ([address] [address] VIR MCH (RBC) [Entitic mass] 28.8 pg Normal 27-34 [facility] Comment on above: Performed By: #### C BCA #### [facility] ([address] [place] [address] VIR MCHC (RBC) [Mass/Vol] 32.5 g/dL Normal 32-36 [facility] Comment on above: Performed By: #### C BCA #### [facility] ([address] [place] [address] VIR MCV (RBC) [Entitic vol] 89 fL Normal 80-100 [facility] Comment on above: Performed By: #### C BCA #### [facility] ([address] [address] VIR MONOCYTES ABSOLUTE COUNT (10*3/UL) BY AUTOMATED COUNT 0.3 10*3/uL Normal 0.0-0.9 [facility] Comment on above: Performed By: #### C BCA #### [facility] ([address] [address] VIR MONOCYTES RELATIVE PERCENT BY AUTOMATED COUNT 8.2 % Normal [facility] Comment on above: Performed By: #### C BCA #### [facility] ([address] [place] [address] VIR NEUTROPHILS ABSOLUTE COUNT BY AUTOMATED COUNT 1.5 10*3/uL Normal 1.5-6.6 [facility] Comment on above: Performed By: #### C BCA #### [facility] ([address] [place] [address] VIR NEUTROPHILS RELATIVE PERCENT BY AUTOMATED COUNT 49.6 % Normal [facility] Comment on above: Performed By: #### C BCA #### [facility] ([address] [place] [address] VIR Platelet mean volume (Bld) [Entitic vol] 7.9 fL Normal 7-12 [facility] Comment on above: Performed By: #### C BCA #### [facility] ([facility]) [address] [place] [address] VIR Platelets (Bld) [#/Vol] 174 10*3/uL Normal 150-450 [facility] Comment on above: Performed By: #### C BCA #### [facility] ([facility]) [address] [place] [address] VIR RBC COUNT 2.83 X10E12/L Low 3.8-5.2 [facility] Comment on above: Performed By: #### C BCA #### [facility] ([facility]) [address] [place] [address] VIR WBC (Bld) [#/Vol] 3.1 10*3/uL Low 4-11 [facility] Comment on above: Performed By: #### C BCA #### [facility] ([facility]) [address] [place] [address] VIR Glomerular filtration rate ( GFR) estimation in non- AmericanOrdered By: Jackson Mondragon on 12-05-2024 GFR/1.73 sq M.predicted among non-blacks MDRD (S/P/Bld) [Vol rate/Area] mL/min/{1.73_m2} >=60 mL/min/1.73m 2 [facility] - Chemistry and C hemistry - challengeOrdered By: Jackson Mondragon on 12-05-2024 Calcium [Mass/Vol] 8.1 mg/dL Low 8.5-10.1 [facility] Chloride [Moles/Vol] 103 mmol/L 98-107 [facility] CO2 [Moles/Vol] 22.3 mmol/L 21.0-32.[address] [facility] Creatinine [Mass/Vol] 0.70 mg/dL 0.55-1.02 [facility] GFR/1.73 sq M.predicted MDRD (S/P/Bld) [Vol rate/Area] mL/min/{1.73_m2} >=60 mL/min/1.73m 2 [facility] Glucose [Mass/Vol] 84 mg/dL 74-106 [facility] Potassium [Moles/Vol] 3.5 mmol/L 3.5-5.1 [facility] Sodium [Moles/Vol] 134 mmol/L Low 136-145 [facility] Urea nitrogen [Mass/Vol] 32.0 mg/dL High 7.0-18.0 [facility] Urea nitrogen/Creatinine [Mass ratio] 45.7 mg/mg [facility] Serum or plasma anion gap de terminationOrdered By: Jackson Mondragon on 12-05-2024 Anion gap [Moles/Vol] 12.2 mmol/L [facility] Glomerular filtration rate ( GFR) estimation in non- AmericanOrdered By: Jackson Mondragon on 12-04-2024 GFR/1.73 sq M.predicted among non-blacks MDRD (S/P/Bld) [Vol rate/Area] 42 mL/min/{1.73_m2} Low >=60 mL/min/1.73m 2 [facility] - Chemistry and C hemistry - challengeOrdered By: Jackson Mondragon on 12-04-2024 Calcium [Mass/Vol] 8.5 mg/dL 8.5-10.1 [facility] Chloride [Moles/Vol] 99 mmol/L 98-107 [facility] CO2 [Moles/Vol] 20.4 mmol/L Low 21.0-32.[address] [facility] Creatinine [Mass/Vol] 1.32 mg/dL High 0.55-1.02 [facility] GFR/1.73 sq M.predicted MDRD (S/P/Bld) [Vol rate/Area] 50 mL/min/{1.73_m2} Low >=60 mL/min/1.73m 2 [facility] Glucose [Mass/Vol] 105 mg/dL 74-106 [facility] Potassium [Moles/Vol] 3.9 mmol/L 3.5-5.1 [facility] Sodium [Moles/Vol] 131 mmol/L Low 136-145 [facility] Urea nitrogen [Mass/Vol] 35.0 mg/dL High 7.0-18.0 [facility] Urea nitrogen/Creatinine [Mass ratio] 26.5 mg/mg [facility] Serum or plasma anion gap de terminationOrdered By: Jackson Mondragon on 12-04-2024 Anion gap [Moles/Vol] 15.5 mmol/L [facility] Globulin Calc (S) [Mass/Vol] Ordered By: Jackson Mondragon on 12-03-2024 Globulin (S) [Mass/Vol] 4.6 g/dL [facility] Glomerular filtration rate ( GFR) estimation in non- AmericanOrdered By: Jackson Mondragon on 12-03-2024 GFR/1.73 sq M.predicted among non-blacks MDRD (S/P/Bld) [Vol rate/Area] mL/min/{1.73_m2} >=60 mL/min/1.73m 2 [facility] - Chemistry and C hemistry - challengeOrdered By: Jackson Mondragon on 12-03-2024 Albumin [Mass/Vol] 1.5 g/dL Low 3.4-5.0 [facility] ALP [Catalytic activity/Vol] 260 U/L High 46-116 [facility] ALT [Catalytic activity/Vol] 39 U/L 14-59 [facility] AST [Catalytic activity/Vol] 125 U/L High 15-37 [facility] Bilirubin [Mass/Vol] 0.8 mg/dL 0.2-1.0 [facility] Calcium [Mass/Vol] 9.0 mg/dL 8.5-10.1 [facility] Chloride [Moles/Vol] 97 mmol/L Low 98-107 [facility] CO2 [Moles/Vol] 18.2 mmol/L Low 21.0-32.[address] [facility] Creatinine [Mass/Vol] 0.94 mg/dL 0.55-1.02 [facility] GFR/1.73 sq M.predicted MDRD (S/P/Bld) [Vol rate/Area] mL/min/{1.73_m2} >=60 mL/min/1.73m 2 [facility] Glucose [Mass/Vol] 118 mg/dL High 74-106 [facility] Potassium [Moles/Vol] 4.3 mmol/L 3.5-5.1 [facility] Protein [Mass/Vol] 6.1 g/dL Low 6.4-8.2 [facility] Sodium [Moles/Vol] 128 mmol/L Low 136-145 [facility] Urea nitrogen [Mass/Vol] 25.0 mg/dL High 7.0-18.0 [facility] Urea nitrogen/Creatinine [Mass ratio] 26.6 mg/mg [facility] Serum or plasma albumin/glob ulin mass ratioOrdered By: Jackson Mondragon on 12-03-2024 Albumin/Globulin [Mass ratio] 0.3 {ratio} [facility] Serum or plasma anion gap de terminationOrdered By: Jackson Mondragon on 12-03-2024 Anion gap [Moles/Vol] 17.1 mmol/L [facility] Erythrocyte distribution wid th Auto (RBC) [Ratio]Ordered By: Jackson Mondragon on 12-02-2024 Erythrocyte distribution width (RBC) [Ratio] 14.6 % 11.0-15.0 [facility] Globulin Calc (S) [Mass/Vol] Ordered By: Jackson Mondragon on 12-02-2024 Globulin (S) [Mass/Vol] 4.4 g/dL [facility] Glomerular filtration rate ( GFR) estimation in non- AmericanOrdered By: Jackson Mondraogn on 12-02-2024 GFR/1.73 sq M.predicted among non-blacks MDRD (S/P/Bld) [Vol rate/Area] mL/min/{1.73_m2} >=60 mL/min/1.73m 2 [facility] Hematocrit Auto (Bld) [Volum e fraction]Ordered By: Jackson Mondragon on 12-02-2024 Hematocrit (Bld) [Volume fraction] 29.7 % Low 36.0-48.0 [facility] Hemoglobin [Mass/volume] in BloodOrdered By: Jackson Mondragon on 12-02-2024 Hemoglobin (Bld) [Mass/Vol] 10.3 g/dL Low 12.0-16.0 [facility] - Chemistry and C hemistry - challengeOrdered By: Jackson Mondragon on 12-02-2024 Calcium [Mass/Vol] 8.7 mg/dL 8.5-10.1 [facility] Chloride [Moles/Vol] 94 mmol/L Low 98-107 [facility] CO2 [Moles/Vol] 19.6 mmol/L Low 21.0-32.[address] [facility] Creatinine [Mass/Vol] 0.92 mg/dL 0.55-1.02 [facility] GFR/1.73 sq M.predicted MDRD (S/P/Bld) [Vol rate/Area] mL/min/{1.73_m2} >=60 mL/min/1.73m 2 [facility] Glucose [Mass/Vol] 125 mg/dL High 74-106 [facility] Potassium [Moles/Vol] 4.2 mmol/L 3.5-5.1 [facility] Sodium [Moles/Vol] 127 mmol/L Low 136-145 [facility] Urea nitrogen [Mass/Vol] 22.0 mg/dL High 7.0-18.0 [facility] Urea nitrogen/Creatinine [Mass ratio] 23.9 mg/mg [facility] Albumin [Mass/Vol] 1.6 g/dL Low 3.4-5.0 [facility] ALP [Catalytic activity/Vol] 258 U/L High 46-116 [facility] ALT [Catalytic activity/Vol] 39 U/L 14-59 [facility] AST [Catalytic activity/Vol] 115 U/L High 15-37 [facility] Bilirubin [Mass/Vol] 1.3 mg/dL High 0.2-1.0 [facility] Protein [Mass/Vol] 6.0 g/dL Low 6.4-8.2 [facility] Leukocytes [#/volume] correc patty for nucleated erythrocytes in Blood by Automated counOrdered By: Jackson Mondragon on 12-02-2024 WBC corrected for nucl RBC Auto (Bld) [#/Vol] 9.6 10 3/uL 4.0-11.0 [facility] MCH Auto (RBC) [Entitic mass ]Ordered By: Jackson Mondragon on 12-02-2024 MCH (RBC) [Entitic mass] 33.2 pg 26.7-34.0 [facility] MCHC Auto (RBC) [Mass/Vol]Or dered By: Jackson Mondragon on 12-02-2024 MCHC (RBC) [Mass/Vol] 34.7 g/dL 29.9-35.2 [facility] MCV Auto (RBC) [Entitic vol] Ordered By: Jackson Mondragon on 12-02-2024 MCV (RBC) [Entitic vol] 95.8 fL 81.0-99.0 [facility] No Panel InformationOrdered By: Jackson Mondragon on 12-02-2024 Phosphorus Level 4.1 mg/dL 2.6-4.[address] [facility] Platelet mean volume Auto (B ld) [Entitic vol]Ordered By: Jackson Mondragon on 12-02-2024 Platelet mean volume (Bld) [Entitic vol] 10.3 fL 9.5-13.5 [facility] Platelets Auto (Bld) [#/Vol] Ordered By: Jackson Mondragon on 12-02-2024 Platelets (Bld) [#/Vol] 277 10 3/uL 150-450 [facility] RBC Auto (Bld) [#/Vol]Ordere d By: Jackson Mondragon on 12-02-2024 RBC (Bld) [#/Vol] 3.10 10 6/uL Low 4.20-5.40 [facility] Serum or plasma albumin/glob ulin mass ratioOrdered By: Jackson Mondragon on 12-02-2024 Albumin/Globulin [Mass ratio] 0.4 {ratio} [facility] Serum or plasma anion gap de terminationOrdered By: Jackson Mondragon on 12-02-2024 Anion gap [Moles/Vol] 17.6 mmol/L [facility] Erythrocyte distribution wid th Auto (RBC) [Ratio]Ordered By: Jackson Mondragon on 12-01-2024 Erythrocyte distribution width (RBC) [Ratio] 14.2 % 11.0-15.0 [facility] Globulin Calc (S) [Mass/Vol] Ordered By: Jackson Mondragon on 12-01-2024 Globulin (S) [Mass/Vol] 4.0 g/dL [facility] Glomerular filtration rate ( GFR) estimation in non- AmericanOrdered By: Jackson Mondragon on 12-01-2024 GFR/1.73 sq M.predicted among non-blacks MDRD (S/P/Bld) [Vol rate/Area] mL/min/{1.73_m2} >=60 mL/min/1.73m 2 [facility] Hematocrit Auto (Bld) [Volum e fraction]Ordered By: Jackson Mondragon on 12-01-2024 Hematocrit (Bld) [Volume fraction] 29.1 % Low 36.0-48.0 [facility] Hemoglobin [Mass/volume] in BloodOrdered By: Jackson Mondragon on 12-01-2024 Hemoglobin (Bld) [Mass/Vol] 10.3 g/dL Low 12.0-16.0 [facility] - Chemistry and C hemistry - challengeOrdered By: Jackson Mondragon on 12-01-2024 Calcium [Mass/Vol] 8.3 mg/dL Low 8.5-10.1 [facility] Chloride [Moles/Vol] 90 mmol/L Low 98-107 [facility] CO2 [Moles/Vol] 23.3 mmol/L 21.0-32.[address] [facility] Creatinine [Mass/Vol] 0.89 mg/dL 0.55-1.02 [facility] GFR/1.73 sq M.predicted MDRD (S/P/Bld) [Vol rate/Area] mL/min/{1.73_m2} >=60 mL/min/1.73m 2 [facility] Glucose [Mass/Vol] 110 mg/dL High 74-106 [facility] Potassium [Moles/Vol] 3.3 mmol/L Low 3.5-5.1 [facility] Sodium [Moles/Vol] 124 mmol/L Critically low 136-145 [facility] Comment on above: RESULTS CALLED TO NANNETTE HUANG RN at 2214 Urea nitrogen [Mass/Vol] 16.0 mg/dL 7.0-18.0 [facility] Urea nitrogen/Creatinine [Mass ratio] 18.0 mg/mg [facility] Magnesium [Mass/Vol] 1.8 mg/dL 1.8-2.4 [facility] Albumin [Mass/Vol] 1.8 g/dL Low 3.4-5.0 [facility] ALP [Catalytic activity/Vol] 250 U/L High 46-116 [facility] ALT [Catalytic activity/Vol] 32 U/L 14-59 [facility] AST [Catalytic activity/Vol] 80 U/L High 15-37 [facility] Bilirubin [Mass/Vol] 2.0 mg/dL High 0.2-1.0 [facility] CK [Catalytic activity/Vol] 316 U/L High 26-192 [facility] Osmolality [Osmolality] 250 mosm/kg Abnormal 275-295 [facility] Comment on above: Performed at: [address] [id number] Director: Ab Giordano MD, Phone: [phone] Protein [Mass/Vol] 5.8 g/dL Low 6.4-8.2 [facility] Laboratory - Chemistry and C hemistry - challengeOrdered By: Maureen Mitchell on 12-01-2024 TSH Qn 3.464 m[IU]/L 0.358-3.740 [facility] Leukocytes [#/volume] correc patty for nucleated erythrocytes in Blood by Automated counOrdered By: Jackson Mondragon on 12-01-2024 WBC corrected for nucl RBC Auto (Bld) [#/Vol] 10.6 10 3/uL 4.0-11.0 [facility] MCH Auto (RBC) [Entitic mass ]Ordered By: Jackson Mondragon on 12-01-2024 MCH (RBC) [Entitic mass] 33.3 pg 26.7-34.0 [facility] MCHC Auto (RBC) [Mass/Vol]Or dered By: Jackson Mondragon on 12-01-2024 MCHC (RBC) [Mass/Vol] 35.4 g/dL High 29.9-35.2 [facility] MCV Auto (RBC) [Entitic vol] Ordered By: Jackson Mondragon on 12-01-2024 MCV (RBC) [Entitic vol] 94.2 fL 81.0-99.0 [facility] No Panel InformationOrdered By: Jackson Mondragon on 12-01-2024 25-Hydroxy Vitamin D Total 134.0 ng/mL [facility] Comment on above: <20 ng/mL Vit D defi cient20-<30 ng/mL Vit D yicnlevgofpy41-093 ng/mL Vit D sufficient>100 ng/mL Potential Toxicity Cortisol AM Sample 79.4 ug/dL Abnormal 6.2-19.4 [facility] Comment on above: Results confirmed on dilution.Performed at: [employer] [address] [id number] Director: Marcelo Parikh PhD, Phone: [phone] Troponin I High Sensitivity 12.0 pg/mL 4.0-51.3 [facility] Comment on above: CUT-OFF POINTS HAVE [...] volume (Bld) [Entitic vol] 10.5 fL 9.5-13.5 [facility] Platelets Auto (Bld) [#/Vol] Ordered By: Jackson Mondragon on 12-01-2024 Platelets (Bld) [#/Vol] 244 10 3/uL 150-450 [facility] RBC Auto (Bld) [#/Vol]Ordere d By: Jackson Mondragon on 12-01-2024 RBC (Bld) [#/Vol] 3.09 10 6/uL Low 4.20-5.40 [facility] Serum or plasma albumin/glob ulin mass ratioOrdered By: Jackson Mondragon on 12-01-2024 Albumin/Globulin [Mass ratio] 0.5 {ratio} [facility] Serum or plasma anion gap de terminationOrdered By: Jackson Mondragon on 12-01-2024 Anion gap [Moles/Vol] 14.0 mmol/L [facility] Basophils Auto (Bld) [#/Vol] Ordered By: Isha Holley on 11-30-2024 Basophils (Bld) [#/Vol] 0.0 10 3/uL 0.0-0.1 [facility] Basophils/100 WBC Auto (Bld) Ordered By: Isha Holley on 11-30-2024 Basophils/100 WBC (Bld) 0.1 % Low 0.2-2.0 [facility] Eosinophils/100 WBC Auto (Bl d)Ordered By: Isha Holley on 11-30-2024 Eosinophils/100 WBC (Bld) 0.1 % Low 0.9-7.0 [facility] Erythrocyte distribution wid th Auto (RBC) [Ratio]Ordered By: Isha Holley on 11-30-2024 Erythrocyte distribution width (RBC) [Ratio] 14.3 % 11.0-15.0 [facility] Globulin Calc (S) [Mass/Vol] Ordered By: Isha Holley on 11-30-2024 Globulin (S) [Mass/Vol] 4.4 g/dL [facility] Glomerular filtration rate ( GFR) estimation in non- AmericanOrdered By: Isha Holley on 11-30-2024 GFR/1.73 sq M.predicted among non-blacks MDRD (S/P/Bld) [Vol rate/Area] mL/min/{1.73_m2} >=60 mL/min/1.73m 2 [facility] Hematocrit Auto (Bld) [Volum e fraction]Ordered By: Isha Holley on 11-30-2024 Hematocrit (Bld) [Volume fraction] 31.3 % Low 36.0-48.0 [facility] Hemoglobin [Mass/volume] in BloodOrdered By: Isha Holley on 11-30-2024 Hemoglobin (Bld) [Mass/Vol] 11.3 g/dL Low 12.0-16.0 [facility] INR in Platelet poor plasma by Coagulation assayOrdered By: Isha Holley on 11-30-2024 INR Coag (PPP) [Relative time] 0.97 {INR} [facility] Comment on above: DESIRED INR:2.0-3.0 CONDITIONS NOT LISTED BELOW2.5-3.5 FOR PROSTHETIC HEART VALVE REPLACEMENT2.5-3.5 [facility] Laboratory - Chemistry and C hemistry - challengeOrdered By: Maureen Mitchell on 11-30-2024 Bilirubin Ql (U) SMALL Abnormal NEGATIVE [facility] Glucose (U) [Mass/Vol] Negative NEGATIVE [facility] Ketones Ql (U) TRACE mg/dL Abnormal NEGATIVE [facility] pH (U) 5.5 [pH] 5.0-9.0 [facility] Specific gravity (U) [Rel density] 1.015 1.005-1.025 [facility] Urobilinogen Qn (U) 2.0 {[place]'U}/dL Abnormal 0.2-1.0 [facility] - Chemistry and C hemistry - challengeOrdered By: Isha Holley on 11-30-2024 HCO3 (Bld) [Moles/Vol] 22.1 mmol/L 22.0-26.0 [facility] Albumin [Mass/Vol] 1.9 g/dL Low 3.4-5.0 [facility] ALP [Catalytic activity/Vol] 285 U/L High 46-116 [facility] ALT [Catalytic activity/Vol] 35 U/L 14-59 [facility] AST [Catalytic activity/Vol] 90 U/L High 15-37 [facility] Bilirubin [Mass/Vol] 2.7 mg/dL High 0.2-1.0 [facility] Calcium [Mass/Vol] 8.7 mg/dL 8.5-10.1 [facility] Chloride [Moles/Vol] 83 mmol/L Critically low 98-107 [facility] Comment on above: RESULTS CALLED TO rosalinda moran rn CK [Catalytic activity/Vol] 565 U/L Critically high 26-192 [facility] Comment on above: RESULTS CALLED TO rosalinda moran rn CO2 [Moles/Vol] 22.8 mmol/L 21.0-32.[address] [facility] Creatinine [Mass/Vol] 0.85 mg/dL 0.55-1.02 [facility] GFR/1.73 sq M.predicted MDRD (S/P/Bld) [Vol rate/Area] mL/min/{1.73_m2} >=60 mL/min/1.73m 2 [facility] Glucose [Mass/Vol] 142 mg/dL High 74-106 [facility] Natriuretic peptide B (Bld) [Mass/Vol] 1858.0 pg/mL Critically high <=900.0 [facility] Comment on above: RESULTS CALLED TO rosalinda moran rn Potassium [Moles/Vol] 3.7 mmol/L 3.5-5.1 [facility] Protein [Mass/Vol] 6.3 g/dL Low 6.4-8.2 [facility] Sodium [Moles/Vol] 119 mmol/L Critically low 136-145 [facility] Comment on above: RESULTS CALLED TO rosalinda moran rn Urea nitrogen [Mass/Vol] 10.0 mg/dL 7.0-18.0 [facility] Urea nitrogen/Creatinine [Mass ratio] 11.8 mg/mg [facility] - Hematology and Cell countsOrdered By: Isha Holley on 11-30-2024 Immature granulocytes/100 WBC (Bld) 0.6 % High 0.0-0.5 [facility] - Specimen inform ationOrdered By: Maureen Mitchell on 11-30-2024 Appearance (U) CLEAR CLEAR [facility] Color (U) DK. ORANGE YELLOW [facility] - UrinalysisOrder ed By: Maureen Mitchell on 11-30-2024 Leukocyte esterase Test strip Ql (U) Negative NEGATIVE [facility] Nitrite Ql (U) Negative NEGATIVE [facility] Protein Ql (U) Negative NEG/TRACE [facility] Leukocytes [#/volume] correc patty for nucleated erythrocytes in Blood by Automated counOrdered By: Isha Holley on 11-30-2024 WBC corrected for nucl RBC Auto (Bld) [#/Vol] 10.8 10 3/uL 4.0-11.0 [facility] Lymphocytes Auto (Bld) [#/Vo l]Ordered By: Isha Holley on 11-30-2024 Lymphocytes (Bld) [#/Vol] 1.1 10 3/uL Low 1.2-3.8 [facility] Lymphocytes/100 WBC Auto (Bl d)Ordered By: Isha Holley on 11-30-2024 Lymphocytes/100 WBC (Bld) 10.3 % Low 20.5-60.0 [facility] MCH Auto (RBC) [Entitic mass ]Ordered By: Isha Holley on 11-30-2024 MCH (RBC) [Entitic mass] 33.9 pg 26.7-34.0 [facility] MCHC Auto (RBC) [Mass/Vol]Or dered By: Isha Holley on 11-30-2024 MCHC (RBC) [Mass/Vol] 36.1 g/dL High 29.9-35.2 [facility] MCV Auto (RBC) [Entitic vol] Ordered By: Isha Holley on 11-30-2024 MCV (RBC) [Entitic vol] 94.0 fL 81.0-99.0 [facility] Monocytes Auto (Bld) [#/Vol] Ordered By: Isha Holley on 11-30-2024 Monocytes (Bld) [#/Vol] 1.0 10 3/uL High 0.3-0.8 [facility] Monocytes/100 WBC Auto (Bld) Ordered By: Isha Holley on 11-30-2024 Monocytes/100 WBC (Bld) 8.9 % 1.7-12.0 [facility] Neutrophils Auto (Bld) [#/Vo l]Ordered By: Isha Holley on 11-30-2024 Neutrophils (Bld) [#/Vol] 8.6 10 3/uL High 1.4-6.5 [facility] Neutrophils/100 WBC Auto (Bl d)Ordered By: Isha Holley on 11-30-2024 Neutrophils/100 WBC (Bld) 80.0 % High 43.0-75.0 [facility] No Panel InformationOrdered By: Maureen Mitchell on 11-30-2024 Urine Microscopic Review NO [facility] Urine Occult Blood Negative NEGATIVE [facility] No Panel InformationOrdered By: Jackson Mondragon on 11-30-2024 Urine Osmolality 330 mOsmol/kg . [facility] Comment on above: 24 hr : 300 - 900 Ra ndom: 50 - 1400 After 12hr fluid restriction: >850Performed at: - [facility] [id number] Director: Ab Giordano MD, Phone: [phone] No Panel InformationOrdered By: Isha Holley on 11-30-2024 Hubert Test Positive POSITIVE [facility] Arterial Blood Base Excess -0.9 mmol/L <2.0-2.0 [facility] Arterial Blood Oxygen Saturation 97.9 % [facility] Arterial Blood Partial Pressure CO2 27.4 mm[Hg] Low 35.0-45.0 [facility] Arterial Blood Partial Pressure O2 89.4 mm[Hg] 80.0-100.0 [facility] Arterial Blood pH 7.514 Critically high 7.350-7.450 [facility] Comment on above: RESULTS CALLED TO DR Ana MONZON Blood Gas Liter Flow 3.5 [facility] Blood Gas Sample Site L RAD [facility] Oxygen Delivery Device N/C [facility] Eosinophils # (Auto) 0.0 10 3/uL 0.0-0.7 [facility] Immature Granulocyte # (Auto) 0.06 10 3/uL High 0.00-0.03 [facility] Troponin I High Sensitivity 12.4 pg/mL 4.0-51.3 [facility] Comment on above: CUT-OFF POINTS HAVE [...] volume (Bld) [Entitic vol] 10.4 fL 9.5-13.5 [facility] Platelets Auto (Bld) [#/Vol] Ordered By: Isha Holley on 11-30-2024 Platelets (Bld) [#/Vol] 249 10 3/uL 150-450 [facility] Prothrombin time (PT)Ordered By: Isha Holley on 11-30-2024 PT Coag (PPP) [Time] 10.3 s 9.0-11.6 [facility] RBC Auto (Bld) [#/Vol]Ordere d By: Isha Holley on 11-30-2024 RBC (Bld) [#/Vol] 3.33 10 6/uL Low 4.20-5.40 [facility] Serum or plasma albumin/glob ulin mass ratioOrdered By: Isha Holley on 11-30-2024 Albumin/Globulin [Mass ratio] 0.4 {ratio} [facility] Serum or plasma anion gap de terminationOrdered By: Isha Holley on 11-30-2024 Anion gap [Moles/Vol] 16.9 mmol/L [facility] ANION GAPon 06-11-2024 Anion gap [Moles/Vol] 15.0 mmol/L Normal 8.0-16.0 [facility] Comment on above: Result Comment: ANIO N GAP = Sodium -(Chloride + CO2) Performed By: #### H H, BMP, ANION, EGFR1 #### [facility] [address] [place] [address] Anion Gapon 06-11-2024 Anion gap [Moles/Vol] 15.0 mmol/L 8.0 - 16.0 meq/L [facility] Comment on above: ANION GAP = Sodium - (Chloride + CO2) Performed at [facility] [address] [place] [address] BASIC METABOL PANELon 2024 Calcium [Mass/Vol] 8.7 mg/dL Normal 8.5-10.5 [facility] Comment on above: Performed By: #### E GFR1, BMP, HH, ANION #### [facility] [address] [place] [address] Chloride [Moles/Vol] 100 mmol/L Normal 98-111 [facility] Comment on above: Performed By: #### E GFR1, BMP, HH, ANION #### [facility] [address] [place] [address] CO2 [Moles/Vol] 24 mmol/L Normal 23-33 [facility] Comment on above: Performed By: #### E GFR1, BMP, HH, ANION #### [facility] [address] [place] [address] Creatinine [Mass/Vol] 0.3 mg/dL Low 0.4-1.2 [facility] Comment on above: Performed By: #### E GFR1, BMP, HH, ANION #### [facility] [address] [place] [address] Glucose [Mass/Vol] 109 mg/dL High 70-108 [facility] Comment on above: Performed By: #### E GFR1, BMP, HH, ANION #### [facility] [address] [place] [address] Potassium [Moles/Vol] 3.2 mmol/L Low 3.5-5.2 [facility] Comment on above: Performed By: #### E GFR1, BMP, HH, ANION #### [facility] [address] [place] [address] Sodium [Moles/Vol] 139 mmol/L Normal 135-145 [facility] Comment on above: Performed By: #### E GFR1, BMP, HH, ANION #### [facility] [address] [place] [address] Urea nitrogen [Mass/Vol] 4 mg/dL Low 7-22 [facility] Comment on above: Performed By: #### E GFR1, BMP, HH, ANION #### [facility] [address] [place] [address] Basic metabolic 2000 panelon 06-11-2024 Calcium [Mass/Vol] 8.7 mg/dL 8.5 - 10.5 mg/dL [facility] Comment on above: Performed at [facility] [address] [place] [address] Chloride [Moles/Vol] 100 mmol/L 98 - 111 meq/L [facility] CO2 [Moles/Vol] 24 mmol/L 23 - 33 meq/L [facility] Creatinine [Mass/Vol] 0.3 mg/dL Low 0.4 - 1.2 mg/dL [facility] Glucose [Mass/Vol] 109 mg/dL High 70 - 108 mg/dL R[facility] Interpretation and review of laboratory results Abnormal [facility] Potassium [Moles/Vol] 3.2 mmol/L Low 3.5 - 5.2 meq/L [facility] Sodium [Moles/Vol] 139 mmol/L 135 - 145 meq/L [facility] Urea nitrogen [Mass/Vol] 4 mg/dL Low 7 - 22 mg/dL [facility] GFR, ESTIMATEDon 06-11-2024 GFR/1.73 sq M.predicted MDRD (S/P/Bld) [Vol rate/Area] mL/min/{1.73_m2} Normal >60 [facility] Comment on above: Pediatric calculator link [...] that affects renal tubular secretion. [place] [address] Result Comment: Cira atric calculator link https://www.kidney.org/professionals/kdoqi/gfr_calculatorped [...] #### H H, BMP, ANION, EGFR1 #### [facility] [address] [place] [address] HGB,HCTon 06-11-2024 Hematocrit (Bld) [Volume fraction] 28.7 % Low 37.0-47.0 [facility] Comment on above: Performed at [facility] [address] [place] [address] Performed By: #### E GFR1, BMP, HH, ANION #### [facility] [address] [place] [address] Hemoglobin (Bld) [Mass/Vol] 9.1 g/dL Low 12.0-16.0 [facility] Comment on above: Performed By: #### E GFR1, BMP, HH, ANION #### [facility] [place] [address] Hemoglobin and Hematocrit pa kathryn (Bld)on 06-11-2024 Interpretation and review of laboratory results Abnormal [facility] No Panel Informationon 06-11 [facility] ANION GAPon 06-10-2024 Anion gap [Moles/Vol] 15.0 mmol/L Normal 8.0-16.0 [facility] Comment on above: Result Comment: ANIO N GAP = Sodium -(Chloride + CO2) Performed By: #### A HIPOLITO EGFR1, HH, BMP #### [facility] [place] [address] Anion Gapon 06-10-2024 Anion gap [Moles/Vol] 15.0 mmol/L 8.0 - 16.0 meq/L [facility] Comment on above: ANION GAP = Sodium - (Chloride + CO2) Performed at [facility] [address] [place] [address] BASIC METABOL PANELon 2024 Calcium [Mass/Vol] 8.7 mg/dL Normal 8.5-10.5 [facility] Comment on above: Performed By: #### A HIPOLITO EGFR1, HH, BMP #### [facility] [address] [place] [address] Chloride [Moles/Vol] 107 mmol/L Normal 98-111 [facility] Comment on above: Performed By: #### A RUTH MCMILLAN, AMANDA, BMP #### [facility] [facility] [address] [place] [address] CO2 [Moles/Vol] 24 mmol/L Normal 23-33 [facility] Comment on above: Performed By: #### A RUTH MCMILLAN, AMANDA, BMP #### [facility] [address] [place] [address] Creatinine [Mass/Vol] 0.4 mg/dL Normal 0.4-1.2 [facility] Comment on above: Performed By: #### A RUTH MCMILLAN, AMANDA, BMP #### [facility] [address] [place] [address] Glucose [Mass/Vol] 110 mg/dL High 70-108 [facility] Comment on above: Performed By: #### A RUTH MCMILLAN, AMANDA, BMP #### [facility] [employer] [address] [place] [address] Potassium [Moles/Vol] 3.3 mmol/L Low 3.5-5.2 [facility] Comment on above: Performed By: #### A RUTH MCMILLAN, AMANDA, BMP #### [employer] [facility] [address] [place] [address] Sodium [Moles/Vol] 146 mmol/L High 135-145 [facility] Comment on above: Performed By: #### A RUTH MCMILLAN, AMANDA, BMP #### [facility] [employer] [address] [place] [address] Urea nitrogen [Mass/Vol] 4 mg/dL Low 7-22 [facility] Comment on above: Performed By: #### A RUTH MCMILLAN, AAMNDA, BMP #### [facility] [address] [place] [address] Basic metabolic 2000 panelon 06-10-2024 Calcium [Mass/Vol] 8.7 mg/dL 8.5 - 10.5 mg/dL [facility] Comment on above: Performed at [facility] [address] [place] [address] Chloride [Moles/Vol] 107 mmol/L 98 - 111 meq/L [facility] CO2 [Moles/Vol] 24 mmol/L 23 - 33 meq/L [facility] Creatinine [Mass/Vol] 0.4 mg/dL 0.4 - 1.2 mg/dL [facility] Glucose [Mass/Vol] 110 mg/dL High 70 - 108 mg/dL Ronal n [facility] Interpretation and review of laboratory results Abnormal [facility] Potassium [Moles/Vol] 3.3 mmol/L Low 3.5 - 5.2 meq/L [facility] Sodium [Moles/Vol] 146 mmol/L High 135 - 145 meq/L B on [facility] Urea nitrogen [Mass/Vol] 4 mg/dL Low 7 - 22 mg/dL [facility] EKG 12 Leadon 06-10-2024 Atrial Rate 100 BPM [facility] P [place] 16 degrees [facility] P-R Interval 158 ms [facility] Q-T Interval 346 ms [facility] QRS Duration 86 ms [facility] QTc Calculation (Bazett) 446 ms [facility] R [place] 27 degrees [facility] T [place] 65 degrees [facility] Ventricular Rate 100 BPM [facility] Normal sinus rhythm Nonspecific ST and T wave abnormality Abnormal ECG Confirmed by JASPER CARDOZO ([id number]) on 06/10/2024 11:52:42 AM [facility] Jasper Cardozo MD - 06/10/2024 Normal sinus rhythm Nonspecific ST and T wave abnormality Abnormal ECG Confirmed by JASPER CARDOZO ([id number]) on 06/10/2024 11:52:42 AM [facility] GFR, ESTIMATEDon 06-10-2024 GFR/1.73 sq M.predicted MDRD (S/P/Bld) [Vol rate/Area] mL/min/{1.73_m2} Normal >60 [facility] Comment on above: Pediatric calculator link [...] that affects renal tubular secretion. [place] [address] Result Comment: Cira miltonc calculator link https://www.kidney.org/professionals/kdoqi/gfr_calculatorped [...] renal tubular secretion. Performed By: #### A RUTH MCMILLAN, AMANDA, BMP #### [facility] [address] [place] [address] HGB,HCTon 06-10-2024 Hematocrit (Bld) [Volume fraction] 28.0 % Low 37.0-47.0 [facility] Comment on above: [place] [address] Performed By: #### A RUTH MCMILLAN, AMANDA, BMP #### [facility] [address] [place] [address] Hemoglobin (Bld) [Mass/Vol] 9.0 g/dL Low 12.0-16.0 [facility] Comment on above: Performed By: #### A RUTH MCMILLAN, AMANDA, BMP #### [facility] [address] [place] [address] Hemoglobin and Hematocrit pa kathryn (Bld)on 06-10-2024 Interpretation and review of laboratory results Abnormal Photo Rankr No Panel Informationon 06-10 [facility] XR WRIST LEFT (MIN 3 VIEWS)o n [...] Levy Hayes MD 06/10/[address] [facility] XR Wrist - left 3 Viewson Soft tissue swelling. No acute fracture. This report has been created using voice recognition software. It may contain minor errors which are inherent in voice recognition technology. Electronically signed by Dr. Levy Hayes [facility] XR WRIST LEFT (MIN 3 VIEWS) CLINICAL INFORMATION: Fall left wrist pain COMPARISON: No prior study. TECHNIQUE: Standard views of the wrist were obtained FINDINGS: Mild soft tissue swelling overlies the dorsal aspect of the wrist. No acute fracture is seen. There is some mild deformity of the distal radius. Cannot exclude an old healed fracture. [facility] Levy Hayes MD - 06/10/2024 XR [...] technology. Electronically signed by Dr. Levy Hayes [facility] Radiology Study observation (narrative) [facility] ANION GAPon 06-09-2024 Anion gap [Moles/Vol] 16.0 mmol/L Normal 8.0-16.0 [facility] Comment on above: Result Comment: ANIO N GAP = Sodium -(Chloride + CO2) Performed By: #### H H, BMP, ANION, EGFR1 #### [facility] [address] [place] [address] Anion Gapon 06-09-2024 Anion gap [Moles/Vol] 16.0 mmol/L 8.0 - 16.0 meq/L [facility] Comment on above: ANION GAP = Sodium - (Chloride + CO2) Performed at [facility] [address] [place] [address] BASIC METABOL PANELon 2024 Calcium [Mass/Vol] 8.4 mg/dL Low 8.5-10.5 [facility] Comment on above: Performed By: #### H H, BMP, ANION, EGFR1 #### [facility] [address] [place] [address] Chloride [Moles/Vol] 103 mmol/L Normal 98-111 [facility] Comment on above: Performed By: #### H H, BMP, ANION, EGFR1 #### [facility] [address] [place] [address] CO2 [Moles/Vol] 20 mmol/L Low 23-33 [facility] Comment on above: Performed By: #### H H, BMP, ANION, EGFR1 #### [facility] [address] [place] [address] Creatinine [Mass/Vol] 0.6 mg/dL Normal 0.4-1.2 [facility] Comment on above: Performed By: #### H H, BMP, ANION, EGFR1 #### [facility] [address] [place] [address] Glucose [Mass/Vol] 107 mg/dL Normal 70-108 [facility] Comment on above: Performed By: #### H H, BMP, ANION, EGFR1 #### [facility] [address] [place] [address] Potassium [Moles/Vol] 4.3 mmol/L Normal 3.5-5.2 [facility] Comment on above: Performed By: #### H H, BMP, ANION, EGFR1 #### [facility] [address] [place] [address] Sodium [Moles/Vol] 139 mmol/L Normal 135-145 [facility] Comment on above: Performed By: #### H H, BMP, ANION, EGFR1 #### [facility] [address] [place] [address] Urea nitrogen [Mass/Vol] mg/dL Low 7-22 [facility] Comment on above: Performed By: #### H H, BMP, ANION, EGFR1 #### [facility] [address] [place] [address] Basic metabolic 2000 panelon 06-09-2024 Calcium [Mass/Vol] 8.4 mg/dL Low 8.5 - 10.5 mg/dL [facility] Comment on above: Performed at [facility] [address] [place] [address] Chloride [Moles/Vol] 103 mmol/L 98 - 111 meq/L [facility] CO2 [Moles/Vol] 20 mmol/L Low 23 - 33 meq/L [facility] [employer] Creatinine [Mass/Vol] 0.6 mg/dL 0.4 - 1.2 mg/dL [facility] [employer] Glucose [Mass/Vol] 107 mg/dL 70 - 108 mg/dL [facility] [employer] Interpretation and review of laboratory results Abnormal [facility] Potassium [Moles/Vol] 4.3 mmol/L 3.5 - 5.2 meq/L [facility] Sodium [Moles/Vol] 139 mmol/L 135 - 145 meq/L [facility] Urea nitrogen [Mass/Vol] mg/dL Low 7 - 22 mg/dL [facility] EKG 12 LeadOrdered By: Maritza Cardozo on 06-09-2024 Atrial Rate 117 BPM [facility] Work Phone: P [place] 23 degrees [facility] Work Phone: P-R Interval 154 ms [facility] Work Phone: Q-T Interval 328 ms [facility] Work Phone: QRS Duration 90 ms [facility] Work Phone: QTc Calculation (Bazett) 457 ms [employer] Work Phone: R [place] 26 degrees [employer] Work Phone: T [place] 120 degrees Keanu Noyola [employer] Work Phone: Ventricular Rate 117 BPM Keanu bryant [employer] Work Phone: Keanu Noyola [employer] Work Phone: EKG 12 Leadon 06-09-2024 Sinus tachycardia LVH with repolarization abnormality ( Ayo product ) Cannot rule out Inferior infarct , age undetermined Abnormal ECG No previous ECGs available Confirmed by JASPER CARDOZO ([id number]) on 06/09/2024 11:36:47 AM [facility] Jasper Olson MD - 06/09/2024 Sinus tachycardia LVH with repolarization abnormality ( Ayo product ) Cannot rule out Inferior infarct , age undetermined Abnormal ECG No previous ECGs available Confirmed by JASPER CARDOZO ([id number]) on 06/09/2024 11:36:47 AM Ke[facility]ola [employer] EKG 12-LEADon 06-09-2024 EKG 12-LEAD 100 100 158 86 346 446 16 27 65 Normal sinus rhythm Nonspecific ST and T wave abnormality Abnormal ECG Confirmed by JASPER CARDOZO ([id number]) on 06/10/2024 11:52:42 AM [email or web address] [email or web address].inc (Droppy)/Amoobib. dll?RetrieveTestByDa teTSovi?IfyahjoQD=[id number]&Date=09-06-19 25&Time=23%3a47%3a11 %3a00&TestType=ECG&S ite=3&OutputType=PDF &Ext=PDF Normal [facility] EKG 12-LEAD 117 117 154 90 328 457 23 26 120 Sinus tachycardia LVH with repolarization abnormality ( Fordyce product ) Cannot rule out Inferior infarct , age undetermined Abnormal ECG No previous ECGs available Confirmed by JASPER CARDOZO ([id number]) on 06/09/2024 11:36:47 AM [email or web address] Zap[employer]ourolya[employer]etel.inc (Droppy)/museOrigen Therapeuticsb. dll?RetrieveTestByDa teTime?GzspbalAF=[id number]&Date=09-06-19 25&Time=11%3a22%3a29 %3a00&TestType=ECG&S ite=3&OutputType=PDF &Ext=PDF Normal [facility] GFR, ESTIMATEDon 06-09-2024 GFR/1.73 sq M.predicted MDRD (S/P/Bld) [Vol rate/Area] mL/min/{1.73_m2} Normal >60 [facility] Comment on above: Pediatric calculator link [...] that affects renal tubular secretion. Performed at [facility] [place] [address] Result Comment: Pedi atric calculator link https://www.kidney.org/professionals/kdoqi/gfr_calculatorped [...] #### H H, BMP, ANION, EGFR1 #### [facility] [address] [place] [address] HGB,HCTon 06-09-2024 Hematocrit (Bld) [Volume fraction] 31.1 % Low 37.0-47.0 [facility] Comment on above: Performed By: #### H H, BMP, ANION, EGFR1 #### [facility] [address] [place] [address] Hemoglobin (Bld) [Mass/Vol] 9.8 g/dL Low 12.0-16.0 [facility] Comment on above: Performed By: #### H H, BMP, ANION, EGFR1 #### [facility] [address] [place] [address] Hemoglobin and Hematocrit pa kathryn (Bld)on 06-09-2024 Hematocrit (Bld) [Volume fraction] 31.1 % Low 37.0 - 47.0 % [facility] Comment on above: Performed at [facility] [address] [place] [address] Hemoglobin (Bld) [Mass/Vol] 9.8 g/dL Low [facility] Interpretation and review of laboratory results Abnormal [facility] [employer] No Panel Informationon 06-09 [facility] XR LUMBAR SPINE 1 VWon 06-09 XR [...] Levy Hayes MD 06/09/[address] [facility] XR Lumbar spine Single viewo n 06-09-2024 Postop appearance of the lumbar spine. This report has been created using voice recognition software. It may contain minor errors which are inherent in voice recognition technology. Electronically signed by Dr. Levy Hayes [facility] MOBILE LATERAL LUMBAR SPINE: CLINICAL INFORMATION: surgery COMPARISON: No prior study. TECHNIQUE: A single lateral mobile view of the lumbar spine was obtained following surgery. FINDINGS: Posterior lumbar fusion has been performed with pedicle screws and rods bridging the L4-5 level posteriorly. [facility] Levy Hayes MD - 06/09/2024 MOBILE LATERAL [...] technology. Electronically signed by Dr. Levy Hayes [facility] [employer] XR LUMBAR SPINE 1 VWon 06-08 XR [...] Levy Hayes MD 06/08/[address] [facility] XR Lumbar spine Single viewo n 06-08-2024 Radiology Study observation (narrative) [facility] Intraoperative appearance of the lumbar spine. This report has been created using voice recognition software. It may contain minor errors which are inherent in voice recognition technology. Electronically signed by Dr. Levy Hayes [facility] MOBILE LATERAL LUMBAR SPINE: CLINICAL INFORMATION: surgery COMPARISON: No prior study. TECHNIQUE: A single lateral mobile view of the lumbar spine was obtained For localization purposes. FINDINGS: 2 spinal needles are present posteriorly, directed at the L3-4 and L4-5 disc spaces. [facility] Levy Hayes MD - 06/08/2024 MOBILE LATERAL LUMBAR SPINE: [...] technology. Electronically signed by Dr. Levy Hayes [facility] Radiology Study observation (narrative) [facility] [employer] XR Lumbar spine Single viewO rdered By: Levy Hayes on 06-08-2024 [facility] [employer] Work Phone: Estimated glomerular filtrat ion rate (GFR) non- Americanon 05-06-2024 GFR/1.73 sq M.predicted among non-blacks MDRD (S/P/Bld) [Vol rate/Area] Estimated glomerular filtration rate (GFR) non- >=60 mL/min/1.73m 2 [facility] - Chemistry and C hemistry - challengeon 05-06-2024 Calcium [Mass/Vol] 8.9 mg/dL 8.5-10.1 [facility] Chloride [Moles/Vol] 101 mmol/L 98-107 [facility] CO2 [Moles/Vol] 24.2 mmol/L 21.0-32.[address] [facility] Creatinine [Mass/Vol] 0.62 mg/dL 0.55-1.02 [facility] GFR/1.73 sq M.predicted MDRD (S/P/Bld) [Vol rate/Area] mL/min/{1.73_m2} >=60 mL/min/1.73m 2 [facility] Glucose [Mass/Vol] 98 mg/dL 74-106 [facility] Potassium [Moles/Vol] 3.3 mmol/L Low 3.5-5.1 [facility] Sodium [Moles/Vol] 138 mmol/L 136-145 [facility] Urea nitrogen [Mass/Vol] mg/dL Low 7.0-18.0 [facility] Urea nitrogen/Creatinine [Mass ratio] 1.6 mg/mg [facility] Serum or plasma anion gap de terminationon 05-06-2024 Anion gap [Moles/Vol] Serum or plasma anion gap determination [facility] Appearance of UrineOrdered B y: Maureen Mitchell on 04-29-2024 Appearance (U) Urine appearance Abnormal Clear [facility] Bacteria [Presence] in Urine by AutomatedOrdered By: Maureen Mitchell on 04-29-2024 Bacteria Auto Ql (U) Bacteria [Presence] in Urine by Automated High None Seen [facility] Bilirubin Test strip Ql (U)O rdered By: Maureen Mitchell on 04-29-2024 Bilirubin Ql (U) Bilirubin.total [Presence] in Urine by Test strip Negative [facility] Color Auto (U)Ordered By: Thanh Mitchell on 04-29-2024 Color (U) Color of Urine by Auto Yellow [facility] Dipstick and Microscopicon 1 06-30-2023 Appearance (U) Cloudy Critically abnormal Clear [facility] Comment on above: Order Comment: Name Collection Type:: Voided Performed By: #### C UU, ADDONUAPLUS #### [address] Bacteria,Urine 4+ High None Seen [facility] Comment on above: Order Comment: Name Collection Type:: Voided Performed By: #### C UU, ADDONUAPLUS #### [address] Bilirubin,Urine Negative Normal Negative [facility] Comment on above: Order Comment: Name Collection Type:: Voided Performed By: #### C UU, ADDONUAPLUS #### [place] [address] [place] Color (U) Light-Yellow Normal Yellow [facility] Comment on above: Order Comment: Name Collection Type:: Voided Performed By: #### C UU, ADDONUAPLUS #### [address] Glucose Ql (U) Normal Normal Normal [facility] Comment on above: Order Comment: Name Collection Type:: Voided Performed By: #### C UU, ADDONUAPLUS #### [place] [address] [place] Hyaline Casts,Urine 0 [LPF] Normal 0-8 [facility] Comment on above: Order Comment: Name Collection Type:: Voided Performed By: #### C UU, ADDONUAPLUS #### [place] [address] [place] Ketones Ql (U) Negative Normal Negative [facility] Comment on above: Order Comment: Name Collection Type:: Voided Performed By: #### C UU, ADDONUAPLUS #### [address] Leukocyte esterase Test strip Ql (U) 4+ High Negative [facility] Comment on above: Order Comment: Name Collection Type:: Voided Performed By: #### C UU, ADDONUAPLUS #### [address] Mucus,Urine Rare Normal [facility] Comment on above: Order Comment: Name Collection Type:: Voided Result Comment: PERF ORMED BY: [place] [address] PATHOLOGIST [employer]LET [employer] POSITIONER RICHARD FAIR M.D. Performed By: #### C UU, ADDONUAPLUS #### [address] Nitrite,Urine Negative Normal Negative [facility] Comment on above: Order Comment: Name Collection Type:: Voided Performed By: #### C UU, ADDONUAPLUS #### [address] Occult Blood,Urine Negative Normal Negative [facility] Comment on above: Order Comment: Name Collection Type:: Voided Result Comment: PERF ORMED BY: [place] [address] PATHOLOGIST [employer]LET [employer] POSITIONER RICHARD FAIR M.D. Performed By: #### C UU, ADDONUAPLUS #### [address] pH (U) 5.5 [pH] Normal 5.0-9.0 [facility] Comment on above: Order Comment: Name Collection Type:: Voided Performed By: #### C UU, ADDONUAPLUS #### [address] Protein,Urine Negative Normal Negative [facility] Comment on above: Order Comment: Name Collection Type:: Voided Performed By: #### C UU, ADDONUAPLUS #### [address] RBC,Urine 3 [HPF] Normal 0-4 [facility] Comment on above: Order Comment: Name Collection Type:: Voided Performed By: #### C UU, ADDONUAPLUS #### [address] Specificy [place],Urine 1.011 Normal 1.001-1.030 [facility] Comment on above: Order Comment: Name Collection Type:: Voided Performed By: #### C UU, ADDONUAPLUS #### [address] Squamous Epithelial Cell,Urine 3 [HPF] High 0-2 [facility] Comment on above: Order Comment: Name Collection Type:: Voided Performed By: #### C UU, ADDONUAPLUS #### [address] Urobilinogen,Urine Normal Normal Normal [facility] Comment on above: Order Comment: Name Collection Type:: Voided Performed By: #### C UU, ADDONUAPLUS #### [address] WBC CLUMP, Urine Many High None Seen [facility] Comment on above: Order Comment: Name Collection Type:: Voided Performed By: #### C UU, ADDONUAPLUS #### [address] WBC,Urine 50 [HPF] High 0-4 [facility] Comment on above: Order Comment: Name Collection Type:: Voided Performed By: #### C UU, ADDONUAPLUS #### [address] Epithelial cells.squamous [# /area] in Urine sediment by Automated countOrdered By: Maureen Mitchell on 04-29-2024 Epithelial cells.squamous Auto (Urine sed) [#/Area] Epithelial cells.squamous [#/area] in Urine sediment by Automated count High 0-2 [facility] Erythrocytes [#/area] in Uri ne sediment by Automated countOrdered By: Maureen Mitchell on 04-29-2024 RBC Auto (Urine sed) [#/Area] Erythrocytes [#/area] in Urine sediment by Automated count 0-4 [facility] Glucose [Mass/volume] in Uri ne by Test stripOrdered By: Maureen Mitchell on 04-29-2024 Glucose Test strip (U) [Mass/Vol] Glucose [Mass/volume] in Urine by Test strip Normal [facility] Hemoglobin Test strip Ql (U) Ordered By: Maureen Mitchlel on 04-29-2024 Hemoglobin Ql (U) Hemoglobin [Presence] in Urine by Test strip Negative [facility] Hyaline casts [#/area] in Ur ine sediment by Automated countOrdered By: Maureen Mitchell on 04-29-2024 Hyaline casts Auto (Urine sed) [#/Area] Hyaline casts [#/area] in Urine sediment by Automated count 0-8 [facility] Ketones Test strip Ql (U)Ord ered By: Maureen Mitchell on 04-29-2024 Ketones Ql (U) Ketones [Presence] in Urine by Test strip Negative [facility] Leukocyte clumps [Presence] in Urine by AutomatedOrdered By: Maureen Mitchell on 04-29-2024 Leukocyte clumps Auto Ql (U) Leukocyte clumps [Presence] in Urine by Automated High None Seen [facility] Leukocyte esterase [Presence ] in Urine by Test stripOrdered By: Maureen Mitchell on 04-29-2024 Leukocyte esterase Test strip Ql (U) Leukocyte esterase [Presence] in Urine by Test strip High Negative [facility] Leukocytes [#/area] in Urine sediment by Automated countOrdered By: Maureen Mitchell on 04-29-2024 WBC Auto (Urine sed) [#/Area] Leukocytes [#/area] in Urine sediment by Automated count High 0-4 [facility] Mucus [Presence] in Urine by AutomatedOrdered By: Maureen Mitchell on 04-29-2024 Mucus Auto Ql (U) Mucus [Presence] in Urine by Automated [facility] Nitrite Test strip Ql (U)Ord ered By: Maureen Mitchell on 04-29-2024 Nitrite Ql (U) Nitrite [Presence] in Urine by Test strip Negative [facility] Protein Test strip (U) [Mass /Vol]Ordered By: Maureen Mitchell on 04-29-2024 Protein (U) [Mass/Vol] Protein [Mass/volume] in Urine by Test strip Negative [facility] Specific gravity Test strip (U) [Rel density]Ordered By: Maureen Mitchell on 04-29-2024 Specific gravity (U) [Rel density] Specific gravity of Urine by Test strip 1.001-1.030 [facility] Urine Cultureon 04-29-2024 Bacteria identified Cx Nom (U) ORGANISM: Klebsiella pneumoniae (O:KLEPNE) [place] Count >100,000 Aerobic LUBNA Charge ([id number]) ----- [...] RESISTANT TO ALL B-LACTAM DRUGS. PERFORMED BY: [address] [place] [address] PATHOLOGIST [employer]LET [employer] POSITIONER RICHARD FAIR M.D. Normal [facility] Comment on above: Performed By: #### C ANTONIO DELANEY #### [address] [place] [address] [facility] Urine cultureOrdered By: Essence Mitchell on 04-29-2024 Bacteria identified Cx Nom (U) Abnormal [facility] Urobilinogen Test strip (U) [Mass/Vol]Ordered By: Maureen Mitchell on 04-29-2024 Urobilinogen (U) [Mass/Vol] Urobilinogen [Mass/volume] in Urine by Test strip Normal [facility] pH Test strip (U)Ordered By: Maureen Mitchell on 04-29-2024 pH (U) pH of Urine by Test strip 5.0-9.0 [facility] ECG 12 lead (Clinic Performe d)on 04-07-20[address] Sinus [address] [facility] Work Phone: Activated partial thrombopla stin time (aPTT) in platelet poor plasma by coagulation aon 04-01-2024 aPTT Coag (PPP) [Time] Activated partial thromboplastin time (aPTT) in platelet poor plasma by coagulation a 22.3-36.2 [facility] Basophils Auto (Bld) [#/Vol] on 04-01-2024 Basophils (Bld) [#/Vol] Automated basophil count 0.0-0.1 [facility] Basophils/100 WBC Auto (Bld) on 04-01-2024 Basophils/100 WBC (Bld) Automated basophil % 0.2-2.0 [facility] Eosinophils/100 WBC Auto (Bl d)on 04-01-2024 Eosinophils/100 WBC (Bld) Automated eosinophil % 0.9-7.0 [facility] Erythrocyte distribution wid th Auto (RBC) [Ratio]on 04-01-2024 Erythrocyte distribution width (RBC) [Ratio] Erythrocyte distribution width [Ratio] by Automated count High 11.0-15.0 [facility] Estimated glomerular filtrat ion rate (GFR) non- Americanon 04-01-2024 GFR/1.73 sq M.predicted among non-blacks MDRD (S/P/Bld) [Vol rate/Area] Estimated glomerular filtration rate (GFR) non- >=60 mL/min/1.73m 2 [facility] Hematocrit Auto (Bld) [Volum e fraction]on 04-01-2024 Hematocrit (Bld) [Volume fraction] Hematocrit [Volume Fraction] of Blood by Automated count 36.0-48.0 [facility] Hemoglobin [Mass/volume] in Bloodon 04-01-2024 Hemoglobin (Bld) [Mass/Vol] Hemoglobin [Mass/volume] in Blood 12.0-16.0 [facility] INR in Platelet poor plasma by Coagulation assayon 04-01-2024 INR Coag (PPP) [Relative time] INR in Platelet poor plasma by Coagulation assay [facility] Comment on above: DESIRED INR:2.0-3.0 CONDITIONS NOT LISTED BELOW2.5-3.5 FOR PROSTHETIC HEART VALVE REPLACEMENT2.5-3.5 RECURRENT THROMBOSIS Laboratory - Chemistry and C hemistry - challengeon 04-01-2024 Calcium [Mass/Vol] 8.6 mg/dL 8.5-10.1 [facility] Chloride [Moles/Vol] 94 mmol/L Low 98-107 [facility] CO2 [Moles/Vol] 23.7 mmol/L 21.0-32.[address] [facility] Creatinine [Mass/Vol] 0.71 mg/dL 0.55-1.02 [facility] GFR/1.73 sq M.predicted MDRD (S/P/Bld) [Vol rate/Area] mL/min/{1.73_m2} >=60 mL/min/1.73m 2 [facility] Glucose [Mass/Vol] 74 mg/dL 74-106 [facility] Potassium [Moles/Vol] 5.0 mmol/L 3.5-5.1 [facility] Sodium [Moles/Vol] 129 mmol/L Low 136-145 [facility] Urea nitrogen [Mass/Vol] 7.0 mg/dL 7.0-18.0 [facility] Urea nitrogen/Creatinine [Mass ratio] 9.9 mg/mg [facility] Laboratory - Hematology and Cell countson 04-01-2024 Immature granulocytes/100 WBC (Bld) 0.0 % 0.0-0.5 [facility] Leukocytes [#/volume] correc patty for nucleated erythrocytes in Blood by Automated counon 04-01-2024 WBC corrected for nucl RBC Auto (Bld) [#/Vol] Leukocytes [#/volume] corrected for nucleated erythrocytes in Blood by Automated coun 4.0-11.0 [facility] Lymphocytes Auto (Bld) [#/Vo l]on 04-01-2024 Lymphocytes (Bld) [#/Vol] Lymphocytes [#/volume] in Blood by Automated count 1.2-3.8 [facility] Lymphocytes/100 WBC Auto (Bl d)on 04-01-2024 Lymphocytes/100 WBC (Bld) Lymphocytes/100 leukocytes in Blood by Automated count 20.5-60.0 [facility] MCH Auto (RBC) [Entitic mass ]on 04-01-2024 MCH (RBC) [Entitic mass] MCH [Entitic mass] by Automated count 26.7-34.0 [facility] MCHC Auto (RBC) [Mass/Vol]on 04-01-2024 MCHC (RBC) [Mass/Vol] MCHC [Mass/volume] by Automated count 29.9-35.2 [facility] MCV Auto (RBC) [Entitic vol] on 04-01-2024 MCV (RBC) [Entitic vol] MCV [Entitic volume] by Automated count 81.0-99.0 [facility] Monocytes Auto (Bld) [#/Vol] on 04-01-2024 Monocytes (Bld) [#/Vol] Automated blood monocyte count 0.3-0.8 [facility] Monocytes/100 WBC Auto (Bld) on 04-01-2024 Monocytes/100 WBC (Bld) Automated monocyte % 1.7-12.0 [facility] Neutrophils Auto (Bld) [#/Vo l]on 04-01-2024 Neutrophils (Bld) [#/Vol] Neutrophils [#/volume] in Blood by Automated count 1.4-6.5 [facility] Neutrophils/100 WBC Auto (Bl d)on 04-01-2024 Neutrophils/100 WBC (Bld) Automated neutrophil % 43.0-75.0 [facility] No Panel InformationOrdered By: Ana Lilia Moreno on 04-01-2024 MRSA Screening Culture [facility] No Panel Informationon 04-01 Eosinophils # (Auto) 0.1 10 3/uL 0.0-0.7 [facility] Immature Granulocyte # (Auto) 0.00 10 3/uL 0.00-0.03 [facility] Platelet mean volume Auto (B ld) [Entitic vol]on 04-01-2024 Platelet mean volume (Bld) [Entitic vol] Platelet mean volume [Entitic volume] in Blood by Automated count Low 9.5-13.5 [facility] Platelets Auto (Bld) [#/Vol] on 04-01-2024 Platelets (Bld) [#/Vol] Platelets [#/volume] in Blood by Automated count 150-450 [facility] Prothrombin time (PT)on PT Coag (PPP) [Time] Prothrombin time (PT) 9.0-11.6 [facility] RBC Auto (Bld) [#/Vol]on RBC (Bld) [#/Vol] Erythrocytes [#/volume] in Blood by Automated count 4.20-5.40 [facility] Serum or plasma anion gap de terminationon 04-01-2024 Anion gap [Moles/Vol] Serum or plasma anion gap determination [facility] Basophils Auto (Bld) [#/Vol] on 01-20-2024 Basophils (Bld) [#/Vol] 0.1 10 3/uL 0.0-0.1 [facility] Basophils (Bld) [#/Vol] Automated basophil count 0.0-0.1 [facility] Basophils/100 WBC Auto (Bld) on 01-20-2024 Basophils/100 WBC (Bld) 0.7 % 0.2-2.0 [facility] Basophils/100 WBC (Bld) Automated basophil % 0.2-2.0 [facility] Eosinophils/100 WBC Auto (Bl d)on 01-20-2024 Eosinophils/100 WBC (Bld) 2.7 % 0.9-7.0 [facility] Eosinophils/100 WBC (Bld) Automated eosinophil % 0.9-7.0 [facility] Erythrocyte distribution wid th Auto (RBC) [Ratio]on 01-20-2024 Erythrocyte distribution width (RBC) [Ratio] 16.8 % High 11.0-15.0 [facility] Erythrocyte distribution width (RBC) [Ratio] Erythrocyte distribution width [Ratio] by Automated count High 11.0-15.0 [facility] Estimated glomerular filtrat ion rate (GFR) non- Americanon 01-20-2024 GFR/1.73 sq M.predicted among non-blacks MDRD (S/P/Bld) [Vol rate/Area] mL/min/{1.73_m2} >=60 [facility] GFR/1.73 sq M.predicted among non-blacks MDRD (S/P/Bld) [Vol rate/Area] Estimated glomerular filtration rate (GFR) non- >=60 [facility] Globulin Calc (S) [Mass/Vol] on 01-20-2024 Globulin (S) [Mass/Vol] 4.8 g/dL [facility] Globulin (S) [Mass/Vol] Serum globulin measurement by calculation (mass/volume) [facility] Hematocrit Auto (Bld) [Volum e fraction]on 01-20-2024 Hematocrit (Bld) [Volume fraction] 34.3 % Low 36.0-48.0 [facility] Hematocrit (Bld) [Volume fraction] Hematocrit [Volume Fraction] of Blood by Automated count Low 36.0-48.0 [facility] Hemoglobin [Mass/volume] in Bloodon 01-20-2024 Hemoglobin (Bld) [Mass/Vol] 10.9 g/dL Low 12.0-16.0 [facility] Hemoglobin (Bld) [Mass/Vol] Hemoglobin [Mass/volume] in Blood Low 12.0-16.0 [facility] Laboratory - Chemistry and C hemistry - challengeon 01-20-2024 Albumin [Mass/Vol] 2.9 g/dL Low 3.4-5.0 [facility] ALP [Catalytic activity/Vol] 205 U/L High 46-116 [facility] ALT [Catalytic activity/Vol] 24 U/L 14-59 [facility] AST [Catalytic activity/Vol] 48 U/L High 15-37 [facility] Bilirubin [Mass/Vol] 0.3 mg/dL 0.2-1.0 [facility] Calcium [Mass/Vol] 9.3 mg/dL 8.5-10.1 [facility] Chloride [Moles/Vol] 97 mmol/L Low 98-107 [facility] CO2 [Moles/Vol] 23.4 mmol/L 21.0-32.[address] [facility] Creatinine [Mass/Vol] 0.83 mg/dL 0.55-1.02 [facility] GFR/1.73 sq M.predicted MDRD (S/P/Bld) [Vol rate/Area] mL/min/{1.73_m2} >=60 [facility] Glucose [Mass/Vol] 92 mg/dL 74-106 [facility] Magnesium [Mass/Vol] 1.9 mg/dL 1.8-2.4 [facility] Potassium [Moles/Vol] 3.7 mmol/L 3.5-5.1 [facility] Protein [Mass/Vol] 7.7 g/dL 6.4-8.2 [facility] Sodium [Moles/Vol] 135 mmol/L Low 136-145 [facility] Urea nitrogen [Mass/Vol] 4.0 mg/dL Low 7.0-18.0 [facility] Urea nitrogen/Creatinine [Mass ratio] 4.8 mg/mg [facility] Laboratory - Hematology and Cell countson 01-20-2024 Immature granulocytes/100 WBC (Bld) 0.5 % 0.0-0.5 [facility] Leukocytes [#/volume] correc patty for nucleated erythrocytes in Blood by Automated counon 01-20-2024 WBC corrected for nucl RBC Auto (Bld) [#/Vol] 8.6 10 3/uL 4.0-11.0 [facility] WBC corrected for nucl RBC Auto (Bld) [#/Vol] Leukocytes [#/volume] corrected for nucleated erythrocytes in Blood by Automated coun .0-11.0 [facility] Lymphocytes Auto (Bld) [#/Vo l]on 01-20-2024 Lymphocytes (Bld) [#/Vol] 2.4 10 3/uL 1.2-3.8 [facility] Lymphocytes (Bld) [#/Vol] Lymphocytes [#/volume] in Blood by Automated count 1.2-3.8 [facility] Lymphocytes/100 WBC Auto (Bl d)on 01-20-2024 Lymphocytes/100 WBC (Bld) 28.2 % 20.5-60.0 [facility] Lymphocytes/100 WBC (Bld) Lymphocytes/100 leukocytes in Blood by Automated count 20.5-60.0 [facility] MCH Auto (RBC) [Entitic mass ]on 01-20-2024 MCH (RBC) [Entitic mass] 29.4 pg 26.7-34.0 [facility] MCH (RBC) [Entitic mass] MCH [Entitic mass] by Automated count 26.7-34.0 [facility] MCHC Auto (RBC) [Mass/Vol]on 01-20-2024 MCHC (RBC) [Mass/Vol] 31.8 g/dL 29.9-35.2 [facility] MCHC (RBC) [Mass/Vol] MCHC [Mass/volume] by Automated count 29.9-35.2 [facility] MCV Auto (RBC) [Entitic vol] on 01-20-2024 MCV (RBC) [Entitic vol] 92.5 fL 81.0-99.0 [facility] MCV (RBC) [Entitic vol] MCV [Entitic volume] by Automated count 81.0-99.0 [facility] Monocytes Auto (Bld) [#/Vol] on 01-20-2024 Monocytes (Bld) [#/Vol] 0.7 10 3/uL 0.3-0.8 [facility] Monocytes (Bld) [#/Vol] Automated blood monocyte count 0.3-0.8 [facility] Monocytes/100 WBC Auto (Bld) on 01-20-2024 Monocytes/100 WBC (Bld) 7.8 % 1.7-12.0 [facility] Monocytes/100 WBC (Bld) Automated monocyte % 1.7-12.0 [facility] Neutrophils Auto (Bld) [#/Vo l]on 01-20-2024 Neutrophils (Bld) [#/Vol] 5.2 10 3/uL 1.4-6.5 [facility] Neutrophils (Bld) [#/Vol] Neutrophils [#/volume] in Blood by Automated count 1.4-6.5 [facility] Neutrophils/100 WBC Auto (Bl d)on 01-20-2024 Neutrophils/100 WBC (Bld) 60.1 % 43.0-75.0 [facility] Neutrophils/100 WBC (Bld) Automated neutrophil % 43.0-75.0 [facility] No Panel Informationon 01-19 Eosinophils # (Auto) 0.2 10 3/uL 0.0-0.7 [facility] Immature Granulocyte # (Auto) 0.04 10 3/uL High 0.00-0.03 [facility] Platelet mean volume Auto (B ld) [Entitic vol]on 01-20-2024 Platelet mean volume (Bld) [Entitic vol] 10.0 fL 9.5-13.5 [facility] Platelet mean volume (Bld) [Entitic vol] Platelet mean volume [Entitic volume] in Blood by Automated count 9.5-13.5 [facility] Platelets Auto (Bld) [#/Vol] on 01-20-2024 Platelets (Bld) [#/Vol] 456 10 3/uL High 150-450 [facility] Platelets (Bld) [#/Vol] Platelets [#/volume] in Blood by Automated count High 150-450 [facility] RBC Auto (Bld) [#/Vol]on RBC (Bld) [#/Vol] 3.71 10 6/uL Low 4.20-5.40 [facility] RBC (Bld) [#/Vol] Erythrocytes [#/volume] in Blood by Automated count Low 4.20-5.40 [facility] Serum or plasma albumin/glob ulin mass ratioon 01-20-2024 Albumin/Globulin [Mass ratio] 0.6 {ratio} [facility] Albumin/Globulin [Mass ratio] Serum or plasma albumin/globulin mass ratio [facility] Serum or plasma anion gap de terminationon 01-20-2024 Anion gap [Moles/Vol] 18.3 mmol/L [facility] Anion gap [Moles/Vol] Serum or plasma anion gap determination [facility] Basophils Auto (Bld) [#/Vol] on 01-12-2024 Basophils (Bld) [#/Vol] 0.1 10 3/uL 0.0-0.1 [facility] Basophils (Bld) [#/Vol] Automated basophil count 0.0-0.1 [facility] Basophils/100 WBC Auto (Bld) on 01-12-2024 Basophils/100 WBC (Bld) 0.7 % 0.2-2.0 [facility] Basophils/100 WBC (Bld) Automated basophil % 0.2-2.0 [facility] Eosinophils/100 WBC Auto (Bl d)on 01-12-2024 Eosinophils/100 WBC (Bld) 2.3 % 0.9-7.0 [facility] Eosinophils/100 WBC (Bld) Automated eosinophil % 0.9-7.0 [facility] Erythrocyte distribution wid th Auto (RBC) [Ratio]on 01-12-2024 Erythrocyte distribution width (RBC) [Ratio] 18.2 % High 11.0-15.0 [facility] Erythrocyte distribution width (RBC) [Ratio] Erythrocyte distribution width [Ratio] by Automated count High 11.0-15.0 [facility] Estimated glomerular filtrat ion rate (GFR) non- Americanon 01-12-2024 GFR/1.73 sq M.predicted among non-blacks MDRD (S/P/Bld) [Vol rate/Area] mL/min/{1.73_m2} >=60 [facility] GFR/1.73 sq M.predicted among non-blacks MDRD (S/P/Bld) [Vol rate/Area] Estimated glomerular filtration rate (GFR) non- >=60 [facility] Globulin Calc (S) [Mass/Vol] on 01-12-2024 Globulin (S) [Mass/Vol] 3.2 g/dL [facility] Globulin (S) [Mass/Vol] Serum globulin measurement by calculation (mass/volume) [facility] Hematocrit Auto (Bld) [Volum e fraction]on 01-12-2024 Hematocrit (Bld) [Volume fraction] 29.7 % Low 36.0-48.0 [facility] Hematocrit (Bld) [Volume fraction] Hematocrit [Volume Fraction] of Blood by Automated count Low 36.0-48.0 [facility] Hemoglobin [Mass/volume] in Bloodon 01-12-2024 Hemoglobin (Bld) [Mass/Vol] 9.5 g/dL Low 12.0-16.0 [facility] Hemoglobin (Bld) [Mass/Vol] Hemoglobin [Mass/volume] in Blood Low 12.0-16.0 [facility] Laboratory - Chemistry and C hemistry - challengeon 01-12-2024 Albumin [Mass/Vol] 2.3 g/dL Low 3.4-5.0 [facility] ALP [Catalytic activity/Vol] 142 U/L High 46-116 [facility] ALT [Catalytic activity/Vol] 19 U/L 14-59 [facility] AST [Catalytic activity/Vol] 30 U/L 15-37 [facility] Bilirubin [Mass/Vol] 0.4 mg/dL 0.2-1.0 [facility] Calcium [Mass/Vol] 9.0 mg/dL 8.5-10.1 [facility] Chloride [Moles/Vol] 99 mmol/L 98-107 [facility] CO2 [Moles/Vol] 29.5 mmol/L 21.0-32.[address] [facility] Creatinine [Mass/Vol] 0.56 mg/dL 0.55-1.02 [facility] GFR/1.73 sq M.predicted MDRD (S/P/Bld) [Vol rate/Area] mL/min/{1.73_m2} >=60 [facility] Glucose [Mass/Vol] 95 mg/dL 74-106 [facility] Potassium [Moles/Vol] 3.5 mmol/L 3.5-5.1 [facility] Protein [Mass/Vol] 5.5 g/dL Low 6.4-8.2 [facility] Sodium [Moles/Vol] 134 mmol/L Low 136-145 [facility] Urea nitrogen [Mass/Vol] 10.0 mg/dL 7.0-18.0 [facility] Urea nitrogen/Creatinine [Mass ratio] 17.9 mg/mg [facility] Laboratory - Hematology and Cell countson 01-12-2024 Immature granulocytes/100 WBC (Bld) 0.5 % 0.0-0.5 [facility] Leukocytes [#/volume] correc patty for nucleated erythrocytes in Blood by Automated counon 01-12-2024 WBC corrected for nucl RBC Auto (Bld) [#/Vol] 8.6 10 3/uL 4.0-11.0 [facility] WBC corrected for nucl RBC Auto (Bld) [#/Vol] Leukocytes [#/volume] corrected for nucleated erythrocytes in Blood by Automated coun 4.0-11.0 [facility] Lymphocytes Auto (Bld) [#/Vo l]on 01-12-2024 Lymphocytes (Bld) [#/Vol] 1.8 10 3/uL 1.2-3.8 [facility] Lymphocytes (Bld) [#/Vol] Lymphocytes [#/volume] in Blood by Automated count 1.2-3.8 [facility] Lymphocytes/100 WBC Auto (Bl d)on 01-12-2024 Lymphocytes/100 WBC (Bld) 20.7 % 20.5-60.0 [facility] Lymphocytes/100 WBC (Bld) Lymphocytes/100 leukocytes in Blood by Automated count 20.5-60.0 [facility] MCH Auto (RBC) [Entitic mass ]on 01-12-2024 MCH (RBC) [Entitic mass] 30.2 pg 26.7-34.0 [facility] MCH (RBC) [Entitic mass] MCH [Entitic mass] by Automated count 26.7-34.0 [facility] MCHC Auto (RBC) [Mass/Vol]on 01-12-2024 MCHC (RBC) [Mass/Vol] 32.0 g/dL 29.9-35.2 [facility] MCHC (RBC) [Mass/Vol] MCHC [Mass/volume] by Automated count 29.9-35.2 [facility] MCV Auto (RBC) [Entitic vol] on 01-12-2024 MCV (RBC) [Entitic vol] 94.3 fL 81.0-99.0 [facility] MCV (RBC) [Entitic vol] MCV [Entitic volume] by Automated count 81.0-99.0 [facility] Monocytes Auto (Bld) [#/Vol] on 01-12-2024 Monocytes (Bld) [#/Vol] 1.0 10 3/uL High 0.3-0.8 [facility] Monocytes (Bld) [#/Vol] Automated blood monocyte count High 0.3-0.8 [facility] Monocytes/100 WBC Auto (Bld) on 01-12-2024 Monocytes/100 WBC (Bld) 11.3 % 1.7-12.0 [facility] Monocytes/100 WBC (Bld) Automated monocyte % 1.7-12.0 [facility] Neutrophils Auto (Bld) [#/Vo l]on 01-12-2024 Neutrophils (Bld) [#/Vol] 5.6 10 3/uL 1.4-6.5 [facility] Neutrophils (Bld) [#/Vol] Neutrophils [#/volume] in Blood by Automated count 1.4-6.5 [facility] Neutrophils/100 WBC Auto (Bl d)on 01-12-2024 Neutrophils/100 WBC (Bld) 64.5 % 43.0-75.0 [facility] Neutrophils/100 WBC (Bld) Automated neutrophil % 43.0-75.0 [facility] Nicotineon 01-12-2024 Cotinine <5 Normal [facility] Comment on above: Performed By: #### P TT, PT #### [facility] [employer] [address] [place] [id number] Policy Checker: Tato Ibarra MD Nicotine <5 Normal [facility] Comment on above: Result Comment: (NOT E) [...] developed and its performance characteristics determined by [employer]. It has not been cleared or approved by the [place] Food and Drug Administration. This test was performed in a CLIA certified laboratory and is intended for clinical purposes. Performed By: [employer] [address] [place] [address] Blender Operator: José Jackson MD, PhD CLIA Number: [id number] Performed By: #### P TT, PT #### [id number] [place] [address] Policy Checker: Tato Ibarra MD No Panel Informationon 01-11 Eosinophils # (Auto) 0.2 10 3/uL 0.0-0.7 [facility] Immature Granulocyte # (Auto) 0.04 10 3/uL High 0.00-0.03 [facility] Platelet mean volume Auto (B ld) [Entitic vol]on 01-12-2024 Platelet mean volume (Bld) [Entitic vol] 9.9 fL 9.5-13.5 [facility] Platelet mean volume (Bld) [Entitic vol] Platelet mean volume [Entitic volume] in Blood by Automated count 9.5-13.5 [facility] Platelets Auto (Bld) [#/Vol] on 01-12-2024 Platelets (Bld) [#/Vol] 408 10 3/uL 150-450 [facility] Platelets (Bld) [#/Vol] Platelets [#/volume] in Blood by Automated count 150-450 [facility] RBC Auto (Bld) [#/Vol]on RBC (Bld) [#/Vol] 3.15 10 6/uL Low 4.20-5.40 [facility] RBC (Bld) [#/Vol] Erythrocytes [#/volume] in Blood by Automated count Low 4.20-5.40 [facility] Serum or plasma albumin/glob ulin mass ratioon 01-12-2024 Albumin/Globulin [Mass ratio] 0.7 {ratio} [facility] Albumin/Globulin [Mass ratio] Serum or plasma albumin/globulin mass ratio [facility] Serum or plasma anion gap de terminationon 01-12-2024 Anion gap [Moles/Vol] 9.0 mmol/L [facility] Anion gap [Moles/Vol] Serum or plasma anion gap determination [facility] Hgb/Hcton 01-11-2024 Hematocrit (Bld) [Volume fraction] 27.8 % Low 36.3-47.1 [facility] Comment on above: Performed By: #### O SMO, LD, MG, JESUS, TSHX, LIVP, B12FOL, LACTIC, FT4, BMP #### [facility] [employer] [address] [place] [phone] Policy Checker: Tato Ibarra MD Hemoglobin (Bld) [Mass/Vol] 8.7 g/dL Low 11.9-15.1 [facility] Comment on above: Performed By: #### O SMO, LD, MG, JESUS, TSHX, LIVP, B12FOL, LACTIC, FT4, BMP #### [facility] [employer] [address] [place] [address] [id number] Policy Checker: Tato Ibarra MD Basic Metab w/rfx MGon 01-099 Anion gap [Moles/Vol] 9 mmol/L Normal 9-16 [facility] Comment on above: Performed By: #### P TT, PT #### [facility] [address] [place] [id number] Policy Checker: Tato Ibarra MD Calcium [Mass/Vol] 8.0 mg/dL Low 8.6-10.4 [facility] Comment on above: Performed By: #### P TT, PT #### [facility] [employer] [address] [place] [phone] Policy Checker: Tato Ibarra MD Chloride [Moles/Vol] 101 mmol/L Normal 98-107 [facility] Comment on above: Performed By: #### P TT, PT #### [address] [address] Policy Checker: Tato Ibarra MD CO2 [Moles/Vol] 27 mmol/L Normal 20-31 [facility] Comment on above: Performed By: #### P TT, PT #### [address] [address] Policy Checker: Tato Ibarra MD Creatinine [Mass/Vol] 0.4 mg/dL Low 0.50-0.90 [facility] Comment on above: Performed By: #### P TT, PT #### [address] [address] Policy Checker: Tato Ibarra MD GFR/1.73 sq M.predicted among [...] Performed By: #### P TT, PT #### [address] [address] Policy Checker: Tato Ibarra MD Glucose [Mass/Vol] 87 mg/dL Normal 74-99 [facility] Comment on above: Performed By: #### P TT, PT #### [address] [address] Policy Checker: Tato Ibarra MD Potassium [Moles/Vol] 3.2 mmol/L Low 3.7-5.3 [facility] Comment on above: Result Comment: SPEC IMEN SLIGHTLY HEMOLYZED, RESULTS MAY BE ADVERSELY AFFECTED. Performed By: #### P TT, PT #### [address] [address] Policy Checker: Tato Ibarra MD Sodium [Moles/Vol] 137 mmol/L Normal 136-145 [facility] Comment on above: Performed By: #### P TT, PT #### [place] [address] Policy Checker: Tato Ibarra MD Urea nitrogen [Mass/Vol] 4 mg/dL Low 6-20 [facility] Comment on above: Performed By: #### P TT, PT #### [place] [address] Policy Checker: Tato Ibarra MD CBC with Diffon 01-10-2024 Platelet, Fluoresc. 190 k/uL Normal 138-453 [facility] Comment on above: Performed By: #### P TT, PT #### [place] [address] Policy Checker: Tato Ibarra MD PLT, Immature Fract. 4.6 % Normal 1.1-10.3 [facility] Comment on above: Performed By: #### P TT, PT #### [place] [address] Policy Checker: Tato Ibarra MD Abs. Basophil 0.03 k/uL Normal 0.00-0.20 [facility] Comment on above: Performed By: #### P TT, PT #### [address] [address] Policy Checker: Tato Ibarra MD Abs.Imm.Granulocyte 0.04 k/uL Normal 0.00-0.30 [facility] Comment on above: Performed By: #### P TT, PT #### [address] [address] Policy Checker: Tato Ibarra MD Abs.Neutrophil (Seg) 3.17 k/uL Normal 1.50-8.10 [facility] Comment on above: Performed By: #### P TT, PT #### [address] [address] Policy Checker: Tato Ibarra MD Basophils/100 WBC (Bld) 1 % Normal 0-2 [facility] Comment on above: Performed By: #### P TT, PT #### [address] [address] Policy Checker: Tato Ibarra MD Eosinophils (Bld) [#/Vol] 0.12 10*3/uL Normal 0.00-0.44 [facility] Comment on above: Performed By: #### P TT, PT #### [address] [address] Policy Checker: Tato Ibarra MD Eosinophils/100 WBC (Bld) 2 % Normal 1-4 [facility] Comment on above: Performed By: #### P TT, PT #### [address] [address] Policy Checker: Tato Ibarra MD Erythrocyte distribution width (RBC) [Ratio] 18.7 % High 11.8-14.4 [facility] Comment on above: Performed By: #### P TT, PT #### [address] [address] Policy Checker: Tato Ibarra MD Hematocrit (Bld) [Volume fraction] 27.1 % Low 36.3-47.1 [facility] Comment on above: Performed By: #### P TT, PT #### [address] [address] Policy Checker: Tato Ibarra MD Hemoglobin (Bld) [Mass/Vol] 8.9 g/dL Low 11.9-15.1 [facility] Comment on above: Performed By: #### P TT, PT #### [address] [address] Policy Checker: Tato Ibarra MD Immature granulocytes/100 WBC (Bld) 1 % High 0 [facility] Comment on above: Performed By: #### P TT, PT #### [address] [address] Policy Checker: Tato Ibarra MD Lymphocytes (Bld) [#/Vol] 1.36 10*3/uL Normal 1.10-3.70 [facility] Comment on above: Performed By: #### P TT, PT #### [address] [address] Policy Checker: Tato Ibarra MD Lymphocytes/100 WBC (Bld) 24 % Normal 24-43 [facility] Comment on above: Performed By: #### P TT, PT #### [address] [address] Policy Checker: Tato Ibarra MD MCH (RBC) [Entitic mass] 29.8 pg Normal 25.2-33.5 [facility] Comment on above: Performed By: #### P TT, PT #### [address] [address] Policy Checker: Tato Ibarra MD MCHC (RBC) [Mass/Vol] 32.8 g/dL Normal 28.4-34.8 [facility] Comment on above: Performed By: #### P TT, PT #### [address] [address] Policy Checker: Tato Ibarra MD MCV (RBC) [Entitic vol] 90.6 fL Normal 82.6-102.9 [facility] Comment on above: Performed By: #### P TT, PT #### [address] [address] Policy Checker: Tato Ibarra MD Monocytes (Bld) [#/Vol] 0.85 10*3/uL Normal 0.10-1.20 [facility] Comment on above: Performed By: #### P TT, PT #### [address] [address] Policy Checker: Tato Ibarra MD Monocytes/100 WBC (Bld) 15 % High 3-12 [facility] Comment on above: Performed By: #### P TT, PT #### [address] [address] Policy Checker: Tato Ibarra MD Neutrophil (Seg) 57 % Normal 36-65 [facility] Comment on above: Performed By: #### P TT, PT #### [address] [address] Policy Checker: Tato Ibarra MD NRBC Automated 0.0 per 100 WBC Normal 0.0 [facility] Comment on above: Performed By: #### P TT, PT #### [address] [address] Policy Checker: Tato Ibarra MD Platelet Count See Reflexed IPF Result Normal 138-453 [facility] Comment on above: Performed By: #### P TT, PT #### [address] [address] Policy Checker: Tato Ibarra MD RBC (Bld) [#/Vol] 2.99 10*6/uL Low 3.95-5.11 [facility] Comment on above: Performed By: #### P TT, PT #### [address] [address] Policy Checker: Tato Ibarra MD RBC morphology finding Nom (Bld) ANISOCYTOSIS PRESENT Normal [facility] Comment on above: Performed By: #### P TT, PT #### [address] [address] Policy Checker: Tato Ibarra MD WBC (Bld) [#/Vol] 5.6 10*3/uL Normal 3.5-11.3 [facility] Comment on above: Performed By: #### P TT, PT #### [address] [address] Policy Checker: Tato Ibarra MD Calcium, Ionicon 01-10-2024 Calcium [Moles/Vol] 1.18 mmol/L Normal 1.13-1.33 [facility] Comment on above: Performed By: #### P TT, PT #### [address] [address] Policy Checker: Tato Ibarra MD Hgb/Hcton 01-10-2024 Hematocrit (Bld) [Volume fraction] 25.4 % Low 36.3-47.1 [facility] Comment on above: Performed By: #### P TT, PT #### [address] [address] Policy Checker: Tato Ibarra MD Hemoglobin (Bld) [Mass/Vol] 8.1 g/dL Low 11.9-15.1 [facility] Comment on above: Performed By: #### P TT, PT #### [address] [address] Policy Checker: Tato Ibarra MD Magnesiumon 01-10-2024 Magnesium [Mass/Vol] 1.8 mg/dL Normal 1.6-2.6 [facility] Comment on above: Performed By: #### P TT, PT #### [address] [phone] Policy Checker: Tato Ibarra MD Type + Screenon 01-10-2024 Type + Screen Sample Expiration 01/09/2024,2359 Arm Band Number [id number] ABO/Rh(D) O NEGATIVE Antibody Screen NEGATIVE Unit Number [id number] Blood Component Type Leukocyte Reduced Red Cell Unit Division 00 Status of Unit TRANSFUSED Transfusion Status OK TO TRANSFUSE Crossmatch Result COMPATIBLE Unit Number [id number] Blood Component Type Leukocyte Reduced Red Cell Unit Division 00 Status of Unit REL FROM ALLOC Transfusion Status DO NOT ISSUE FOR TRANSFUSION Crossmatch Result NOT TESTED Normal [facility] Comment on above: Performed By: #### O SMO, LD, MG, JESUS, TSHX, LIVP, B12FOL, LACTIC, FT4, BMP #### [facility] [employer] [address] [place] [address] [phone] Policy Checker: Tato Ibarra MD Basic Metab w/rfx MGon 01-08 Anion gap [Moles/Vol] 8 mmol/L Low -16 [facility] Comment on above: Performed By: #### O SMO, LD, MG, JESUS, TSHX, LIVP, B12FOL, LACTIC, FT4, BMP #### [facility] [address] [place] [phone] Policy Checker: Tato Ibarra MD Calcium [Mass/Vol] 8.1 mg/dL Low 8.6-10.4 [facility] Comment on above: Performed By: #### O SMO, LD, MG, JESUS, TSHX, LIVP, B12FOL, LACTIC, FT4, BMP #### [facility] [address] [place] [phone] Policy Checker: Tato Ibarra MD Chloride [Moles/Vol] 103 mmol/L Normal 98-107 [facility] Comment on above: Performed By: #### O SMO, LD, MG, JESUS, TSHX, LIVP, B12FOL, LACTIC, FT4, BMP #### [facility] [address] [place] [address] Policy Checker: Tato Ibarra MD CO2 [Moles/Vol] 27 mmol/L Normal 20-31 [facility] Comment on above: Performed By: #### O SMO, LD, MG, JESUS, TSHX, LIVP, B12FOL, LACTIC, FT4, BMP #### [facility] [address] [place] [phone] Policy Checker: Tato Ibarra MD Creatinine [Mass/Vol] 0.3 mg/dL Low 0.50-0.90 [facility] Comment on above: Performed By: #### O SMO, LD, MG, JESUS, TSHX, LIVP, B12FOL, LACTIC, FT4, BMP #### [facility] [address] [place] [phone] Policy Checker: Tato Ibarra MD GFR/1.73 sq M.predicted among [...] TSHX, LIVP, B12FOL, LACTIC, FT4, BMP #### [facility] [place] [address] Policy Checker: Tato Ibarra MD Glucose [Mass/Vol] 103 mg/dL High 74-99 [facility] Comment on above: Performed By: #### O SMO, LD, MG, JESUS, TSHX, LIVP, B12FOL, LACTIC, FT4, BMP #### [facility] [address] [place] [address] [phone] Policy Checker: Tato Ibarra MD Potassium [Moles/Vol] 3.1 mmol/L Low 3.7-5.3 [facility] Comment on above: Performed By: #### O SMO, LD, MG, JESUS, TSHX, LIVP, B12FOL, LACTIC, FT4, BMP #### [address] [address] Policy Checker: Tato Ibarra MD Sodium [Moles/Vol] 138 mmol/L Normal 136-145 [facility] Comment on above: Performed By: #### O SMO, LD, MG, JESUS, TSHX, LIVP, B12FOL, LACTIC, FT4, BMP #### [place] [address] Policy Checker: Tato Ibarra MD Urea nitrogen [Mass/Vol] 4 mg/dL Low 6-20 [facility] Comment on above: Performed By: #### O SMO, LD, MG, JESUS, TSHX, LIVP, B12FOL, LACTIC, FT4, BMP #### [place] [address] Policy Checker: Tato Ibarra MD CBC with Diffon 01-09-2024 Abs. Basophil 0.03 k/uL Normal 0.00-0.20 [facility] Comment on above: Performed By: #### O SMO, LD, MG, JESUS, TSHX, LIVP, B12FOL, LACTIC, FT4, BMP #### [address] [address] Policy Checker: Tato Ibarra MD Abs.Imm.Granulocyte <0.03 Normal 0.00-0.30 [facility] Comment on above: Performed By: #### O SMO, LD, MG, JESUS, TSHX, LIVP, B12FOL, LACTIC, FT4, BMP #### [address] [address] Policy Checker: Tato Ibarra MD Abs.Neutrophil (Seg) 4.44 k/uL Normal 1.50-8.10 [facility] Comment on above: Performed By: #### O SMO, LD, MG, JESUS, TSHX, LIVP, B12FOL, LACTIC, FT4, BMP #### [facility] [address] [place] [phone] Policy Checker: Tato Ibarra MD Basophils/100 WBC (Bld) 1 % Normal 0-2 [facility] Comment on above: Performed By: #### O SMO, LD, MG, JESUS, TSHX, LIVP, B12FOL, LACTIC, FT4, BMP #### [address] [address] Policy Checker: Tato Ibarra MD Eosinophils (Bld) [#/Vol] 0.10 10*3/uL Normal 0.00-0.44 [facility] Comment on above: Performed By: #### O SMO, LD, MG, JESUS, TSHX, LIVP, B12FOL, LACTIC, FT4, BMP #### [place] [address] Policy Checker: Tato bIarra MD Eosinophils/100 WBC (Bld) 2 % Normal 1-4 [facility] Comment on above: Performed By: #### O SMO, LD, MG, JESUS, TSHX, LIVP, B12FOL, LACTIC, FT4, BMP #### [facility] [address] [place] [phone] Policy Checker: Tato Ibarra MD Erythrocyte distribution width (RBC) [Ratio] 19.9 % High 11.8-14.4 [facility] Comment on above: Performed By: #### O SMO, LD, MG, JESUS, TSHX, LIVP, B12FOL, LACTIC, FT4, BMP #### [address] [address] Policy Checker: Tato Ibarra MD Hematocrit (Bld) [Volume fraction] 24.7 % Low 36.3-47.1 [facility] Comment on above: Performed By: #### O SMO, LD, MG, JESUS, TSHX, LIVP, B12FOL, LACTIC, FT4, BMP #### [address] [address] Policy Checker: Tato Ibarra MD Hemoglobin (Bld) [Mass/Vol] 7.7 g/dL Low 11.9-15.1 [facility] Comment on above: Performed By: #### O SMO, LD, MG, JESUS, TSHX, LIVP, B12FOL, LACTIC, FT4, BMP #### [address] [address] Policy Checker: Tato Ibarra MD Immature granulocytes/100 WBC (Bld) 0 % Normal 0 [facility] Comment on above: Performed By: #### O SMO, LD, MG, JESUS, TSHX, LIVP, B12FOL, LACTIC, FT4, BMP #### [address] [address] Policy Checker: Tato Ibarra MD Lymphocytes (Bld) [#/Vol] 0.91 10*3/uL Low 1.10-3.70 [facility] Comment on above: Performed By: #### O SMO, LD, MG, JESUS, TSHX, LIVP, B12FOL, LACTIC, FT4, BMP #### [facility] [address] [place] [address] Policy Checker: Tato Ibarra MD Lymphocytes/100 WBC (Bld) 15 % Low 24-43 [facility] Comment on above: Performed By: #### O SMO, LD, MG, JESUS, TSHX, LIVP, B12FOL, LACTIC, FT4, BMP #### [facility] [employer] [address] [place] [phone] Policy Checker: Tato Ibarra MD MCH (RBC) [Entitic mass] 29.6 pg Normal 25.2-33.5 [facility] Comment on above: Performed By: #### O SMO, LD, MG, JESUS, TSHX, LIVP, B12FOL, LACTIC, FT4, BMP #### [address] [address] Policy Checker: Tato Ibarra MD MCHC (RBC) [Mass/Vol] 31.2 g/dL Normal 28.4-34.8 [facility] Comment on above: Performed By: #### O SMO, LD, MG, JESUS, TSHX, LIVP, B12FOL, LACTIC, FT4, BMP #### [address] [address] Policy Checker: Tato Ibarra MD MCV (RBC) [Entitic vol] 95.0 fL Normal 82.6-102.9 [facility] Comment on above: Performed By: #### O SMO, LD, MG, JESUS, TSHX, LIVP, B12FOL, LACTIC, FT4, BMP #### [address] [address] Policy Checker: Tato Ibarra MD Monocytes (Bld) [#/Vol] 0.60 10*3/uL Normal 0.10-1.20 [facility] Comment on above: Performed By: #### O SMO, LD, MG, JESUS, TSHX, LIVP, B12FOL, LACTIC, FT4, BMP #### [facility] [address] [place] [phone] Policy Checker: Tato Ibarra MD Monocytes/100 WBC (Bld) 10 % Normal 3-12 [facility] Comment on above: Performed By: #### O SMO, LD, MG, JESUS, TSHX, LIVP, B12FOL, LACTIC, FT4, BMP #### [facility] [employer] [address] [place] [address] Policy Checker: Tato Ibarra MD Neutrophil (Seg) 73 % High 36-65 [facility] Comment on above: Performed By: #### O SMO, LD, MG, JESUS, TSHX, LIVP, B12FOL, LACTIC, FT4, BMP #### [facility] [address] [place] [phone] Policy Checker: Tato Ibarra MD NRBC Automated 0.0 per 100 WBC Normal 0.0 [facility] Comment on above: Performed By: #### O SMO, LD, MG, JESUS, TSHX, LIVP, B12FOL, LACTIC, FT4, BMP #### [address] [address] Policy Checker: Tato Ibarra MD Platelet mean volume (Bld) [Entitic vol] 10.4 fL Normal 8.1-13.5 [facility] Comment on above: Performed By: #### O SMO, LD, MG, JESUS, TSHX, LIVP, B12FOL, LACTIC, FT4, BMP #### [address] [address] Policy Checker: Tato Ibarra MD Platelets (Bld) [#/Vol] 266 10*3/uL Normal 138-453 [facility] Comment on above: Performed By: #### O SMO, LD, MG, JESUS, TSHX, LIVP, B12FOL, LACTIC, FT4, BMP #### [facility] [address] [place] [address] Policy Checker: Tato Ibarra MD RBC (Bld) [#/Vol] 2.60 10*6/uL Low 3.95-5.11 [facility] Comment on above: Performed By: #### O SMO, LD, MG, JESUS, TSHX, LIVP, B12FOL, LACTIC, FT4, BMP #### [facility] [employer] [address] [place] [address] Policy Checker: Tato Ibarra MD RBC morphology finding Nom (Bld) ANISOCYTOSIS PRESENT Normal [facility] Comment on above: Performed By: #### O SMO, LD, MG, JESUS, TSHX, LIVP, B12FOL, LACTIC, FT4, BMP #### [address] [phone] Policy Checker: Tato Ibarra MD WBC (Bld) [#/Vol] 6.1 10*3/uL Normal 3.5-11.3 [facility] Comment on above: Performed By: #### O SMO, LD, MG, JESUS, TSHX, LIVP, B12FOL, LACTIC, FT4, BMP #### [address] [phone] Policy Checker: Tato Ibarra MD Calcium, Ionicon 01-09-2024 Calcium [Moles/Vol] 1.18 mmol/L Normal 1.13-1.33 [facility] Comment on above: Performed By: #### O SMO, LD, MG, JESUS, TSHX, LIVP, B12FOL, LACTIC, FT4, BMP #### [address] [phone] Policy Checker: Tato Ibarra MD Ferritinon 01-09-2024 Ferritin [Mass/Vol] 80 ng/mL Normal 13-150 [facility] Comment on above: Result Comment: FERRITIN Reference Ranges: Adult Males 20 - 60 years: 30 - 400 ng/mL Adult females 17 - 60 years: 13 - 150 ng/mL Adults greater than 60 years: no established reference range Pediatrics: no established reference range Performed By: #### P TT, PT #### [address] [phone] Policy Checker: Tato Ibarra MD Hgb/Hcton 01-09-2024 Hematocrit (Bld) [Volume fraction] 23.7 % Low 36.3-47.1 [facility] Comment on above: Performed By: #### O SMO, LD, MG, JESUS, TSHX, LIVP, B12FOL, LACTIC, FT4, BMP #### [facility] [employer] [address] [place] [address] [phone] Policy Checker: Tato Ibarra MD Hemoglobin (Bld) [Mass/Vol] 8.0 g/dL Low 11.9-15.1 [facility] Comment on above: Performed By: #### O SMO, LD, MG, JESUS, TSHX, LIVP, B12FOL, LACTIC, FT4, BMP #### [facility] [employer] [address] [place] [address] [phone] Policy Checker: Tato Ibarra MD Iron Binding Cap.on 01-09-20 24 % Fe Saturation 10 % Low 20-55 [facility] Comment on above: Performed By: #### O SMO, LD, MG, JESUS, TSHX, LIVP, B12FOL, LACTIC, FT4, BMP #### [facility] [employer] [address] [place] [address] Policy Checker: Tato Ibarra MD Iron [Mass/Vol] 15 ug/dL Low 37-145 [facility] Comment on above: Performed By: #### O SMO, LD, MG, JESUS, TSHX, LIVP, B12FOL, LACTIC, FT4, BMP #### [facility] [employer] [address] [place] [phone] Policy Checker: Tato Ibarra MD Total Fe Binding Cap 156 ug/dL Low 250-450 [facility] Comment on above: Performed By: #### O SMO, LD, MG, JESUS, TSHX, LIVP, B12FOL, LACTIC, FT4, BMP #### [facility] [employer] [address] [place] [address] Policy Checker: Tato Ibarra MD Unbound Fe Bind Cap 141 ug/dL Normal 112-347 [facility] Comment on above: Performed By: #### O SMO, LD, MG, JESUS, TSHX, LIVP, B12FOL, LACTIC, FT4, BMP #### [address] [address] Policy Checker: Tato Ibarra MD Magnesiumon 01-09-2024 Magnesium [Mass/Vol] 2.0 mg/dL Normal 1.6-2.6 [facility] Comment on above: Performed By: #### O SMO, LD, MG, JESUS, TSHX, LIVP, B12FOL, LACTIC, FT4, BMP #### [address] [address] Policy Checker: Tato Ibarra MD Basic Metab w/rfx MGon 01-07 Anion gap [Moles/Vol] 14 mmol/L Normal - [facility] Comment on above: Performed By: #### P TT, PT #### [address] [address] Policy Checker: Tato Ibarra MD Calcium [Mass/Vol] 8.3 mg/dL Low 8.6-10.4 [facility] Comment on above: Performed By: #### P TT, PT #### [address] [address] Policy Checker: Tato Ibarra MD Chloride [Moles/Vol] 97 mmol/L Low 98-107 [facility] Comment on above: Performed By: #### P TT, PT #### [address] [address] Policy Checker: Tato Ibarra MD CO2 [Moles/Vol] 24 mmol/L Normal 20-31 [facility] Comment on above: Performed By: #### P TT, PT #### [address] [address] Policy Checker: Tato Ibarra MD Creatinine [Mass/Vol] 0.3 mg/dL Low 0.50-0.90 [facility] Comment on above: Performed By: #### P TT, PT #### [facility] [address] [place] [address] Policy Checker: Tato Ibarra MD GFR/1.73 sq M.predicted among [...] Performed By: #### P TT, PT #### [address] [address] Policy Checker: Tato Ibarra MD Glucose [Mass/Vol] 104 mg/dL High 74-99 [facility] Comment on above: Performed By: #### P TT, PT #### [facility] [employer] [address] [place] [phone] Policy Checker: Tato Ibarra MD Potassium [Moles/Vol] 3.0 mmol/L Low 3.7-5.3 [facility] Comment on above: Performed By: #### P TT, PT #### [facility] [address] [place] [address] Policy Checker: Tato Ibarra MD Sodium [Moles/Vol] 135 mmol/L Low 136-145 [facility] Comment on above: Performed By: #### P TT, PT #### [facility] [address] [place] [address] Policy Checker: Tato Ibarra MD Urea nitrogen [Mass/Vol] 4 mg/dL Low 6-20 [facility] Comment on above: Performed By: #### P TT, PT #### [address] [address] Policy Checker: Tato Ibarra MD CBC with Diffon 01-08-2024 Abs. Basophil 0.00 k/uL Normal 0.0-0.2 [facility] Comment on above: Performed By: #### P TT, PT #### [address] [address] Policy Checker: Tato Ibarra MD Abs.Imm.Granulocyte 0.00 k/uL Normal 0.00-0.30 [facility] Comment on above: Performed By: #### P TT, PT #### [place] [address] Policy Checker: Tato Ibarra MD Abs.Neutrophil (Seg) 7.78 k/uL High 1.8-7.7 [facility] Comment on above: Performed By: #### P TT, PT #### [address] [address] Policy Checker: Tato Ibarra MD Basophils/100 WBC (Bld) 0 % Normal 0-2 [facility] Comment on above: Performed By: #### P TT, PT #### [address] [address] Policy Checker: Tato Ibarra MD Eosinophils (Bld) [#/Vol] 0.00 10*3/uL Normal 0.0-0.4 [facility] Comment on above: Performed By: #### P TT, PT #### [address] [address] Policy Checker: Tato Ibarra MD Eosinophils/100 WBC (Bld) 0 % Low 1-4 [facility] Comment on above: Performed By: #### P TT, PT #### [address] [address] Policy Checker: Tato Ibarra MD Immature granulocytes/100 WBC (Bld) 0 % Normal 0 [facility] Comment on above: Performed By: #### P TT, PT #### [address] [address] Policy Checker: Tato Ibarra MD Lymphocytes (Bld) [#/Vol] 1.15 10*3/uL Normal 1.0-4.8 [facility] Comment on above: Performed By: #### P TT, PT #### [address] [address] Policy Checker: Tato Ibarra MD Lymphocytes/100 WBC (Bld) 12 % Low 24-44 [facility] Comment on above: Performed By: #### P TT, PT #### [address] [address] Policy Checker: Tato Ibarra MD Monocytes (Bld) [#/Vol] 0.67 10*3/uL Normal 0.1-0.8 [facility] Comment on above: Performed By: #### P TT, PT #### [address] [address] Policy Checker: Tato Ibarra MD Monocytes/100 WBC (Bld) 7 % Normal 1-7 [facility] Comment on above: Performed By: #### P TT, PT #### [address] [address] Policy Checker: Tato Ibarra MD Morphology Ritesh (Bld) [Interp] ANISOCYTOSIS PRESENT Normal [facility] Comment on above: Performed By: #### P TT, PT #### [address] [address] Policy Checker: Tato Ibarra MD Neutrophil (Seg) 81 % High 36-66 [facility] Comment on above: Performed By: #### P TT, PT #### [facility] [address] [place] [address] Policy Checker: Tato Ibarra MD Erythrocyte distribution width (RBC) [Ratio] 20.6 % High 11.8-14.4 [facility] Comment on above: Performed By: #### P TT, PT #### [address] [address] Policy Checker: Tato Ibarra MD Hematocrit (Bld) [Volume fraction] 27.2 % Low 36.3-47.1 [facility] Comment on above: Performed By: #### P TT, PT #### [address] [address] Policy Checker: Tato Ibarra MD Hemoglobin (Bld) [Mass/Vol] 8.8 g/dL Low 11.9-15.1 [facility] Comment on above: Performed By: #### P TT, PT #### [address] [address] Policy Checker: Tato Ibarra MD MCH (RBC) [Entitic mass] 30.6 pg Normal 25.2-33.5 [facility] Comment on above: Performed By: #### P TT, PT #### [address] [address] Policy Checker: Tato Ibarra MD MCHC (RBC) [Mass/Vol] 32.4 g/dL Normal 28.4-34.8 [facility] Comment on above: Performed By: #### P TT, PT #### [address] [address] Policy Checker: Tato Ibarra MD MCV (RBC) [Entitic vol] 94.4 fL Normal 82.6-102.9 [facility] Comment on above: Performed By: #### P TT, PT #### [facility] [employer] [address] [place] [address] Policy Checker: Tato Ibarra MD NRBC Automated 0.0 per 100 WBC Normal 0.0 [facility] Comment on above: Performed By: #### P TT, PT #### [address] [address] Policy Checker: Tato Ibarra MD Platelet mean volume (Bld) [Entitic vol] 10.5 fL Normal 8.1-13.5 [facility] Comment on above: Performed By: #### P TT, PT #### [address] [address] Policy Checker: Tato Ibarra MD Platelets (Bld) [#/Vol] 268 10*3/uL Normal 138-453 [facility] Comment on above: Performed By: #### P TT, PT #### [address] [address] Policy Checker: Tato Ibarra MD RBC (Bld) [#/Vol] 2.88 10*6/uL Low 3.95-5.11 [facility] Comment on above: Performed By: #### P TT, PT #### [address] [address] Policy Checker: Tato Ibarra MD WBC (Bld) [#/Vol] 9.6 10*3/uL Normal 3.5-11.3 [facility] Comment on above: Performed By: #### P TT, PT #### [address] [address] Policy Checker: Tato Ibarra MD Calcium, Ionicon 01-08-2024 Calcium [Moles/Vol] 1.12 mmol/L Low 1.13-1.33 [facility] Comment on above: Performed By: #### P TT, PT #### [address] [address] Policy Checker: Tato Ibarra MD Hgb/Hcton 01-08-2024 Hematocrit (Bld) [Volume fraction] 24.7 % Low 36.3-47.1 [facility] Comment on above: Performed By: #### O SMO, LD, MG, JESUS, TSHX, LIVP, B12FOL, LACTIC, FT4, BMP #### [facility] [address] [place] [address] [phone] Policy Checker: Tato Ibarra MD Hemoglobin (Bld) [Mass/Vol] 8.0 g/dL Low 11.9-15.1 [facility] Comment on above: Performed By: #### O SMO, LD, MG, JESUS, TSHX, LIVP, B12FOL, LACTIC, FT4, BMP #### [facility] [employer] [address] [place] [phone] Policy Checker: Tato Ibarra MD Hematocrit (Bld) [Volume fraction] 27.3 % Low 36.3-47.1 [facility] Comment on above: Performed By: #### P TT, PT #### [facility] [employer] [address] [place] [address] Policy Checker: Tato Ibarra MD Hemoglobin (Bld) [Mass/Vol] 8.6 g/dL Low 11.9-15.1 [facility] Comment on above: Performed By: #### P TT, PT #### [facility] [employer] [address] [place] [address] Policy Checker: Tato Ibarra MD Hematocrit (Bld) [Volume fraction] 26.5 % Low 36.3-47.1 [facility] Comment on above: Performed By: #### O SMO, LD, MG, JESUS, TSHX, LIVP, B12FOL, LACTIC, FT4, BMP #### [facility] [address] [place] [address] Policy Checker: Tato Ibarra MD Hemoglobin (Bld) [Mass/Vol] 8.1 g/dL Low 11.9-15.1 [facility] Comment on above: Performed By: #### O SMO, LD, MG, JESUS, TSHX, LIVP, B12FOL, LACTIC, FT4, BMP #### [facility] [address] [place] [address] [phone] Policy Checker: Tato Ibarra MD Hematocrit (Bld) [Volume fraction] 26.0 % Low 36.3-47.1 [facility] Comment on above: Performed By: #### O SMO, LD, MG, JESUS, TSHX, LIVP, B12FOL, LACTIC, FT4, BMP #### [facility] [address] [place] [address] [phone] Policy Checker: Tato Ibarra MD Hemoglobin (Bld) [Mass/Vol] 8.0 g/dL Low 11.9-15.1 [facility] Comment on above: Performed By: #### O SMO, LD, MG, JESUS, TSHX, LIVP, B12FOL, LACTIC, FT4, BMP #### [facility] [address] [place] [address] [phone] Policy Checker: Tato Ibarra MD K (Potassium)on 01-08-2024 Potassium [Moles/Vol] 3.3 mmol/L Low 3.7-5.3 [facility] Comment on above: Performed By: #### P TT, PT #### [facility] [address] [place] [address] Policy Checker: Tato Ibarra MD Magnesiumon 01-08-2024 Magnesium [Mass/Vol] 1.8 mg/dL Normal 1.6-2.6 [facility] Comment on above: Performed By: #### P TT, PT #### [facility] [address] [place] [address] [phone] Policy Checker: Tato Ibarra MD Troponinon 01-08-2024 Troponin, High Sens 83 ng/L Critically high 0-14 [facility] Comment on above: Result Comment: High Sensitivity Troponin values cannot be compared with other Troponin methodologies. Previous Alert Value Reported Performed By: #### P TT, PT #### [facility] [employer] [address] [place] [address] [phone] Policy Checker: Tato Ibarra MD Troponin, High Sens 84 ng/L Critically high 0-14 [facility] Comment on above: Result Comment: High Sensitivity Troponin values cannot be compared with other Troponin methodologies. Performed By: #### P TT, PT #### [facility] [employer] [address] [place] [address] [phone] Policy Checker: Tato Ibarra MD Troponin, High Sens 42 ng/L High 0-14 [facility] Comment on above: Result Comment: High Sensitivity Troponin values cannot be compared with other Troponin methodologies. Performed By: #### O SMO, LD, MG, JESUS, TSHX, LIVP, B12FOL, LACTIC, FT4, BMP #### [facility] [employer] [address] [place] [address] [phone] Policy Checker: Tato Ibarra MD XR CHEST PORTABLEon 01-08-20 [...] Gildardo Caraballo MD 01/08/24 Final result Normal [facility] Basic Metab w/rfx MGon 01-06 Anion gap [Moles/Vol] 8 mmol/L Low 9-16 [facility] Comment on above: Performed By: #### O SMO, LD, MG, JESUS, TSHX, LIVP, B12FOL, LACTIC, FT4, BMP #### [address] [address] Policy Checker: Tato Ibarra MD Calcium [Mass/Vol] 7.5 mg/dL Low 8.6-10.4 [facility] Comment on above: Performed By: #### O SMO, LD, MG, JESUS, TSHX, LIVP, B12FOL, LACTIC, FT4, BMP #### [address] [address] Policy Checker: Tato Ibarra MD Chloride [Moles/Vol] 107 mmol/L Normal 98-107 [facility] Comment on above: Performed By: #### O SMO, LD, MG, JESUS, TSHX, LIVP, B12FOL, LACTIC, FT4, BMP #### [address] [address] Policy Checker: Tato Ibarra MD CO2 [Moles/Vol] 24 mmol/L Normal 20-31 [facility] Comment on above: Performed By: #### O SMO, LD, MG, JESUS, TSHX, LIVP, B12FOL, LACTIC, FT4, BMP #### [facility] [address] [place] [phone] Policy Checker: Tato Ibarra MD Creatinine [Mass/Vol] 0.4 mg/dL Low 0.50-0.90 [facility] Comment on above: Performed By: #### O SMO, LD, MG, JESUS, TSHX, LIVP, B12FOL, LACTIC, FT4, BMP #### [facility] [employer] [address] [place] [address] [phone] Policy Checker: Tato Ibarra MD GFR/1.73 sq M.predicted among [...] TSHX, LIVP, B12FOL, LACTIC, FT4, BMP #### [address] [address] Policy Checker: Tato Ibarra MD Glucose [Mass/Vol] 88 mg/dL Normal 74-99 [facility] Comment on above: Performed By: #### O SMO, LD, MG, JESUS, TSHX, LIVP, B12FOL, LACTIC, FT4, BMP #### [facility] [address] [place] [phone] Policy Checker: Tato Ibarra MD Potassium [Moles/Vol] 3.2 mmol/L Low 3.7-5.3 [facility] Comment on above: Result Comment: SPEC IMEN SLIGHTLY HEMOLYZED, RESULTS MAY BE ADVERSELY AFFECTED. Performed By: #### O SMO, LD, MG, JESUS, TSHX, LIVP, B12FOL, LACTIC, FT4, BMP #### [facility] [address] [place] [phone] Policy Checker: Tato Ibarra MD Sodium [Moles/Vol] 139 mmol/L Normal 136-145 [facility] Comment on above: Performed By: #### O SMO, LD, MG, JESUS, TSHX, LIVP, B12FOL, LACTIC, FT4, BMP #### [facility] [address] [place] [phone] Policy Checker: Tato Ibarra MD Urea nitrogen [Mass/Vol] 8 mg/dL Normal 6-20 [facility] Comment on above: Performed By: #### O SMO, LD, MG, JESUS, TSHX, LIVP, B12FOL, LACTIC, FT4, BMP #### [address] [address] Policy Checker: Tato Ibarra MD CBC with Diffon 01-07-2024 Abs. Basophil 0.06 k/uL Normal 0.00-0.20 [facility] Comment on above: Performed By: #### O SMO, LD, MG, JESUS, TSHX, LIVP, B12FOL, LACTIC, FT4, BMP #### [address] [address] Policy Checker: Tato Ibarra MD Abs.Imm.Granulocyte 0.00 k/uL Normal 0.00-0.30 [facility] Comment on above: Performed By: #### O SMO, LD, MG, JESUS, TSHX, LIVP, B12FOL, LACTIC, FT4, BMP #### [address] [address] Policy Checker: Tato Ibarra MD Abs.Neutrophil (Seg) 3.94 k/uL Normal 1.50-8.10 [facility] Comment on above: Performed By: #### O SMO, LD, MG, JESUS, TSHX, LIVP, B12FOL, LACTIC, FT4, BMP #### [facility] [employer] [address] [place] [phone] Policy Checker: Tato Ibarra MD Basophils/100 WBC (Bld) 1 % Normal 0-2 [facility] Comment on above: Performed By: #### O SMO, LD, MG, JESUS, TSHX, LIVP, B12FOL, LACTIC, FT4, BMP #### [facility] [employer] [address] [place] [address] Policy Checker: Tato Ibarra MD Eosinophils (Bld) [#/Vol] 0.12 10*3/uL Normal 0.00-0.44 [facility] Comment on above: Performed By: #### O SMO, LD, MG, JESUS, TSHX, LIVP, B12FOL, LACTIC, FT4, BMP #### [address] [phone] Policy Checker: Tato Ibarra MD Eosinophils/100 WBC (Bld) 2 % Normal 1-4 [facility] Comment on above: Performed By: #### O SMO, LD, MG, JESUS, TSHX, LIVP, B12FOL, LACTIC, FT4, BMP #### [address] [address] Policy Checker: Tato Ibarra MD Immature granulocytes/100 WBC (Bld) 0 % Normal 0 [facility] Comment on above: Performed By: #### O SMO, LD, MG, JESUS, TSHX, LIVP, B12FOL, LACTIC, FT4, BMP #### [address] [address] Policy Checker: Tato Ibarra MD Lymphocytes (Bld) [#/Vol] 1.22 10*3/uL Normal 1.10-3.70 [facility] Comment on above: Performed By: #### O SMO, LD, MG, JESUS, TSHX, LIVP, B12FOL, LACTIC, FT4, BMP #### [facility] [address] [place] [phone] Policy Checker: Tato Ibarra MD Lymphocytes/100 WBC (Bld) 21 % Low 24-43 [facility] Comment on above: Performed By: #### O SMO, LD, MG, JESUS, TSHX, LIVP, B12FOL, LACTIC, FT4, BMP #### [address] [address] Policy Checker: Tato Ibarra MD Monocytes (Bld) [#/Vol] 0.46 10*3/uL Normal 0.10-1.20 [facility] Comment on above: Performed By: #### O SMO, LD, MG, JESUS, TSHX, LIVP, B12FOL, LACTIC, FT4, BMP #### [address] [address] Policy Checker: Tato Ibarra MD Monocytes/100 WBC (Bld) 8 % Normal 3-12 [facility] Comment on above: Performed By: #### O SMO, LD, MG, JESUS, TSHX, LIVP, B12FOL, LACTIC, FT4, BMP #### [place] [address] Policy Checker: Tato Ibarra MD Morphology Ritesh (Bld) [Interp] ANISOCYTOSIS PRESENT Normal [facility] Comment on above: Performed By: #### O SMO, LD, MG, JESUS, TSHX, LIVP, B12FOL, LACTIC, FT4, BMP #### [place] [address] Policy Checker: Tato Ibarra MD Neutrophil (Seg) 68 % High 36-65 [facility] Comment on above: Performed By: #### O SMO, LD, MG, JESUS, TSHX, LIVP, B12FOL, LACTIC, FT4, BMP #### [address] [address] Policy Checker: Tato Ibarra MD Erythrocyte distribution width (RBC) [Ratio] 22.0 % High 11.8-14.4 [facility] Comment on above: Performed By: #### O SMO, LD, MG, JESUS, TSHX, LIVP, B12FOL, LACTIC, FT4, BMP #### [address] [address] Policy Checker: Tato Ibarra MD Hematocrit (Bld) [Volume fraction] 23.2 % Low 36.3-47.1 [facility] Comment on above: Performed By: #### O SMO, LD, MG, JESUS, TSHX, LIVP, B12FOL, LACTIC, FT4, BMP #### [address] [address] Policy Checker: Tato Ibarra MD Hemoglobin (Bld) [Mass/Vol] 7.2 g/dL Low 11.9-15.1 [facility] Comment on above: Performed By: #### O SMO, LD, MG, JESUS, TSHX, LIVP, B12FOL, LACTIC, FT4, BMP #### [address] [phone] Policy Checker: Tato Ibarra MD MCH (RBC) [Entitic mass] 29.4 pg Normal 25.2-33.5 [facility] Comment on above: Performed By: #### O SMO, LD, MG, JESUS, TSHX, LIVP, B12FOL, LACTIC, FT4, BMP #### [address] [phone] Policy Checker: Tato Ibarra MD MCHC (RBC) [Mass/Vol] 31.0 g/dL Normal 28.4-34.8 [facility] Comment on above: Performed By: #### O SMO, LD, MG, JESUS, TSHX, LIVP, B12FOL, LACTIC, FT4, BMP #### [address] [address] Policy Checker: Tato Ibarra MD MCV (RBC) [Entitic vol] 94.7 fL Normal 82.6-102.9 [facility] Comment on above: Performed By: #### O SMO, LD, MG, JESUS, TSHX, LIVP, B12FOL, LACTIC, FT4, BMP #### [address] [phone] Policy Checker: Tato Ibarra MD NRBC Automated 0.0 per 100 WBC Normal 0.0 [facility] Comment on above: Performed By: #### O SMO, LD, MG, JESUS, TSHX, LIVP, B12FOL, LACTIC, FT4, BMP #### [address] [address] Policy Checker: Tato Ibarra MD Platelet mean volume (Bld) [Entitic vol] 11.4 fL Normal 8.1-13.5 [facility] Comment on above: Performed By: #### O SMO, LD, MG, JESUS, TSHX, LIVP, B12FOL, LACTIC, FT4, BMP #### [address] [address] Policy Checker: Tato Ibarra MD Platelets (Bld) [#/Vol] 197 10*3/uL Normal 138-453 [facility] Comment on above: Performed By: #### O SMO, LD, MG, JESUS, TSHX, LIVP, B12FOL, LACTIC, FT4, BMP #### [address] [address] Policy Checker: Tato Ibarra MD RBC (Bld) [#/Vol] 2.45 10*6/uL Low 3.95-5.11 [facility] Comment on above: Performed By: #### O SMO, LD, MG, JESUS, TSHX, LIVP, B12FOL, LACTIC, FT4, BMP #### [facility] [employer] [address] [place] [phone] Policy Checker: Tato Ibarra MD WBC (Bld) [#/Vol] 5.8 10*3/uL Normal 3.5-11.3 [facility] Comment on above: Performed By: #### O SMO, LD, MG, JESUS, TSHX, LIVP, B12FOL, LACTIC, FT4, BMP #### [facility] [employer] [address] [place] [phone] Policy Checker: Tato Ibarra MD Calcium, Ionicon 01-07-2024 Calcium [Moles/Vol] 1.11 mmol/L Low 1.13-1.33 [facility] Comment on above: Performed By: #### O SMO, LD, MG, JESUS, TSHX, LIVP, B12FOL, LACTIC, FT4, BMP #### [facility] [address] [place] [address] [phone] Policy Checker: Tato Ibarra MD Glucose,Whole Bloodon 2023 Glucose [Mass/Vol] 97 mg/dL Normal 65-105 [facility] Glucose [Mass/Vol] 100 mg/dL Normal 65-105 [facility] Glucose [Mass/Vol] 89 mg/dL Normal 65-105 [facility] Hgb/Hcton 01-07-2024 Hematocrit (Bld) [Volume fraction] 21.9 % Low 36.3-47.1 [facility] Comment on above: Performed By: #### O SMO, LD, MG, JESUS, TSHX, LIVP, B12FOL, LACTIC, FT4, BMP #### [facility] [employer] [address] [place] [phone] Policy Checker: Tato Ibarra MD Hemoglobin (Bld) [Mass/Vol] 7.1 g/dL Low 11.9-15.1 [facility] Comment on above: Performed By: #### O SMO, LD, MG, JESUS, TSHX, LIVP, B12FOL, LACTIC, FT4, BMP #### [facility] [address] [place] [phone] Policy Checker: Tato Ibarra MD Hematocrit (Bld) [Volume fraction] 26.5 % Low 36.3-47.1 [facility] Comment on above: Performed By: #### O SMO, LD, MG, JESUS, TSHX, LIVP, B12FOL, LACTIC, FT4, BMP #### [facility] [address] [place] [address] [phone] Policy Checker: Tato Ibarra MD Hemoglobin (Bld) [Mass/Vol] 8.2 g/dL Low 11.9-15.1 [facility] Comment on above: Performed By: #### O SMO, LD, MG, JESUS, TSHX, LIVP, B12FOL, LACTIC, FT4, BMP #### [address] [phone] Policy Checker: Tato Ibarra MD K (Potassium)on 01-07-2024 Potassium [Moles/Vol] 3.7 mmol/L Normal 3.7-5.3 [facility] Comment on above: Performed By: #### P TT, PT #### [address] [phone] Policy Checker: Tato Ibarra MD MRSA, DNA, Nasalon MRSA, DNA, Nasal Negative Normal NEG [facility] Comment on above: Result Comment: NEGA [...] TSHX, LIVP, B12FOL, LACTIC, FT4, BMP #### [address] [phone] Policy Checker: Tato Ibarra MD Magnesiumon 1 Magnesium [Mass/Vol] 2.1 mg/dL Normal 1.6-2.6 [facility] Comment on above: Performed By: #### O SMO, LD, MG, JESUS, TSHX, LIVP, B12FOL, LACTIC, FT4, BMP #### [address] [phone] Policy Checker: Tato Ibarra MD Basic Metab w/rfx MGon 01-05 Anion gap [Moles/Vol] 7 mmol/L Low 9-16 [facility] Comment on above: Performed By: #### O SMO, LD, MG, JESUS, TSHX, LIVP, B12FOL, LACTIC, FT4, BMP #### [address] [address] Policy Checker: Tato Ibarra MD Calcium [Mass/Vol] 7.2 mg/dL Low 8.6-10.4 [facility] Comment on above: Performed By: #### O SMO, LD, MG, JESUS, TSHX, LIVP, B12FOL, LACTIC, FT4, BMP #### [address] [address] Policy Checker: Tato Ibarra MD Chloride [Moles/Vol] 111 mmol/L High 98-107 [facility] Comment on above: Performed By: #### O SMO, LD, MG, JESUS, TSHX, LIVP, B12FOL, LACTIC, FT4, BMP #### [address] [address] Policy Checker: Tato Ibarra MD CO2 [Moles/Vol] 24 mmol/L Normal 20-31 [facility] Comment on above: Performed By: #### O SMO, LD, MG, JESUS, TSHX, LIVP, B12FOL, LACTIC, FT4, BMP #### [address] [address] Policy Checker: Tato Ibarra MD Creatinine [Mass/Vol] 0.4 mg/dL Low 0.50-0.90 [facility] Comment on above: Performed By: #### O SMO, LD, MG, JESUS, TSHX, LIVP, B12FOL, LACTIC, FT4, BMP #### [address] [address] Policy Checker: Tato Ibarra MD GFR/1.73 sq M.predicted among [...] TSHX, LIVP, B12FOL, LACTIC, FT4, BMP #### [address] [address] Policy Checker: Tato Ibarra MD Glucose [Mass/Vol] 103 mg/dL High 74-99 [facility] Comment on above: Performed By: #### O SMO, LD, MG, JESUS, TSHX, LIVP, B12FOL, LACTIC, FT4, BMP #### [facility] [address] [place] [phone] Policy Checker: Tato Ibarra MD Potassium [Moles/Vol] 3.7 mmol/L Normal 3.7-5.3 [facility] Comment on above: Performed By: #### O SMO, LD, MG, JESUS, TSHX, LIVP, B12FOL, LACTIC, FT4, BMP #### [facility] [address] [place] [phone] Policy Checker: Tato Ibarra MD Sodium [Moles/Vol] 142 mmol/L Normal 136-145 [facility] Comment on above: Performed By: #### O SMO, LD, MG, JESUS, TSHX, LIVP, B12FOL, LACTIC, FT4, BMP #### [facility] [employer] [address] [place] [phone] Policy Checker: Tato Ibarra MD Urea nitrogen [Mass/Vol] 14 mg/dL Normal 6-20 [facility] Comment on above: Performed By: #### O SMO, LD, MG, JESUS, TSHX, LIVP, B12FOL, LACTIC, FT4, BMP #### [place] [address] Policy Checker: Tato Ibarra MD Basophils Auto (Bld) [#/Vol] on 01-06-2024 Basophils (Bld) [#/Vol] 0.0 10 3/uL 0.0-0.1 [facility] Basophils/100 WBC Auto (Bld) on 01-06-2024 Basophils/100 WBC (Bld) 0.5 % 0.2-2.0 [facility] CBC with Diffon 01-06-2024 Abs. Basophil <0.03 Normal 0.00-0.20 [facility] Comment on above: Performed By: #### P TT, PT #### [place] [address] Policy Checker: Tato Ibarra MD Abs.Imm.Granulocyte 0.04 k/uL Normal 0.00-0.30 [facility] Comment on above: Performed By: #### P TT, PT #### [place] [address] Policy Checker: Tato Ibarra MD Abs.Neutrophil (Seg) 5.60 k/uL Normal 1.50-8.10 [facility] Comment on above: Performed By: #### P TT, PT #### [place] [address] Policy Checker: Tato Ibarra MD Basophils/100 WBC (Bld) 0 % Normal 0-2 [facility] Comment on above: Performed By: #### P TT, PT #### [place] [address] Policy Checker: Tato Ibarra MD Eosinophils (Bld) [#/Vol] 0.03 10*3/uL Normal 0.00-0.44 [facility] Comment on above: Performed By: #### P TT, PT #### [address] [address] Policy Checker: Tato Ibarra MD Eosinophils/100 WBC (Bld) 0 % Low 1-4 [facility] Comment on above: Performed By: #### P TT, PT #### [place] [address] Policy Checker: Tato Ibarra MD Erythrocyte distribution width (RBC) [Ratio] 19.9 % High 11.8-14.4 [facility] Comment on above: Performed By: #### P TT, PT #### [facility] [employer] [address] [place] [address] Policy Checker: Tato Ibarra MD Hematocrit (Bld) [Volume fraction] 22.4 % Low 36.3-47.1 [facility] Comment on above: Performed By: #### P TT, PT #### [place] [address] Policy Checker: Tato Ibarra MD Hemoglobin (Bld) [Mass/Vol] 6.9 g/dL Critically low 11.9-15.1 [facility] Comment on above: Performed By: #### P TT, PT #### [place] [address] Policy Checker: Tato Ibarra MD Immature granulocytes/100 WBC (Bld) 1 % High 0 [facility] Comment on above: Performed By: #### P TT, PT #### [facility] [employer] [address] [place] [address] Policy Checker: Tato Ibarra MD Lymphocytes (Bld) [#/Vol] 0.99 10*3/uL Low 1.10-3.70 [facility] Comment on above: Performed By: #### P TT, PT #### [address] [address] Policy Checker: Tato Ibarra MD Lymphocytes/100 WBC (Bld) 14 % Low 24-43 [facility] Comment on above: Performed By: #### P TT, PT #### [address] [address] Policy Checker: Tato Ibarra MD MCH (RBC) [Entitic mass] 30.3 pg Normal 25.2-33.5 [facility] Comment on above: Performed By: #### P TT, PT #### [address] [address] Policy Checker: Tato Ibarra MD MCHC (RBC) [Mass/Vol] 30.8 g/dL Normal 28.4-34.8 [facility] Comment on above: Performed By: #### P TT, PT #### [address] [address] Policy Checker: Tato Ibarra MD MCV (RBC) [Entitic vol] 98.2 fL Normal 82.6-102.9 [facility] Comment on above: Performed By: #### P TT, PT #### [address] [address] Policy Checker: Tato Ibarra MD Monocytes (Bld) [#/Vol] 0.53 10*3/uL Normal 0.10-1.20 [facility] Comment on above: Performed By: #### P TT, PT #### [address] [address] Policy Checker: Tato Ibarra MD Monocytes/100 WBC (Bld) 7 % Normal 3-12 [facility] Comment on above: Performed By: #### P TT, PT #### [address] [address] Policy Checker: Tato Ibarra MD Neutrophil (Seg) 78 % High 36-65 [facility] Comment on above: Performed By: #### P TT, PT #### [address] [address] Policy Checker: Tato Ibarra MD NRBC Automated 0.0 per 100 WBC Normal 0.0 [facility] Comment on above: Performed By: #### P TT, PT #### [address] [address] Policy Checker: Tato Ibarra MD Platelet mean volume (Bld) [Entitic vol] 10.6 fL Normal 8.1-13.5 [facility] Comment on above: Performed By: #### P TT, PT #### [address] [address] Policy Checker: Tato Ibarra MD Platelets (Bld) [#/Vol] 195 10*3/uL Normal 138-453 [facility] Comment on above: Performed By: #### P TT, PT #### [address] [address] Policy Checker: Tato Ibarra MD RBC (Bld) [#/Vol] 2.28 10*6/uL Low 3.95-5.11 [facility] Comment on above: Performed By: #### P TT, PT #### [address] [address] Policy Checker: Tato Ibarra MD RBC morphology finding Nom (Bld) ANISOCYTOSIS PRESENT Normal [facility] Comment on above: Performed By: #### P TT, PT #### [address] [address] Policy Checker: Tato Ibarra MD WBC (Bld) [#/Vol] 7.2 10*3/uL Normal 3.5-11.3 [facility] Comment on above: Performed By: #### P TT, PT #### [phone] [place] [address] Policy Checker: Tato Ibarra MD CT CHEST WO CONTRASTon [...] Cory Bella MD 01/06/24 Final result Normal [facility] CTA ABDOMEN PELVIS W WO CONT RASTon 01-06-2024 CTA ABDOMEN PELVIS W WO CONTRAST [...] Dain Rodriguez MD 01/06/24 Final result Normal [facility] Calcium, Ionicon 01-06-2024 Calcium [Moles/Vol] 1.07 mmol/L Low 1.13-1.33 [facility] Comment on above: Performed By: #### O SMO, LD, MG, JESUS, TSHX, LIVP, B12FOL, LACTIC, FT4, BMP #### [facility] [phone] Policy Checker: Tato Ibarra MD Eosinophils/100 WBC Auto (Bl d)on 01-06-2024 Eosinophils/100 WBC (Bld) 1.2 % 0.9-7.0 [facility] Erythrocyte distribution wid th Auto (RBC) [Ratio]on 01-06-2024 Erythrocyte distribution width (RBC) [Ratio] 19.2 % High 11.0-15.0 [facility] Estimated glomerular filtrat ion rate (GFR) non- Americanon 01-06-2024 GFR/1.73 sq M.predicted among non-blacks MDRD (S/P/Bld) [Vol rate/Area] mL/min/{1.73_m2} >=60 [facility] Globulin Calc (S) [Mass/Vol] on 01-06-2024 Globulin (S) [Mass/Vol] 2.1 g/dL [facility] Hematocrit Auto (Bld) [Volum e fraction]on 01-06-2024 Hematocrit (Bld) [Volume fraction] 19.1 % Low 36.0-48.0 [facility] Comment on above: RESULTS CALLED TO RACHEL TAI RN Hemoglobin [Mass/volume] in Bloodon 01-06-2024 Hemoglobin (Bld) [Mass/Vol] 6.0 g/dL Low 12.0-16.0 [facility] Comment on above: RESULTS CALLED TO RACHEL TAI RN Hemoglobin.gastrointestinal [Presence] in Stoolon 01-06-2024 Hemoglobin.gastroint estinal Ql (Stl) Positive Abnormal [facility] Hgb/Hcton 01-06-2024 Hematocrit (Bld) [Volume fraction] 23.4 % Low 36.3-47.1 [facility] Comment on above: Performed By: #### O SMO, LD, MG, JESUS, TSHX, LIVP, B12FOL, LACTIC, FT4, BMP #### [facility] [address] [place] [address] [phone] Policy Checker: Tato Ibarra MD Hemoglobin (Bld) [Mass/Vol] 7.5 g/dL Low 11.9-15.1 [facility] Comment on above: Performed By: #### O SMO, LD, MG, JESUS, TSHX, LIVP, B12FOL, LACTIC, FT4, BMP #### [facility] [address] [place] [address] [phone] Policy Checker: Tato Ibarra MD Hematocrit (Bld) [Volume fraction] 23.9 % Low 36.3-47.1 [facility] Comment on above: Performed By: #### O SMO, LD, MG, JESUS, TSHX, LIVP, B12FOL, LACTIC, FT4, BMP #### [facility] [address] [place] [address] [phone] Policy Checker: Tato Ibarra MD Hemoglobin (Bld) [Mass/Vol] 7.8 g/dL Low 11.9-15.1 [facility] Comment on above: Performed By: #### O SMO, LD, MG, JESUS, TSHX, LIVP, B12FOL, LACTIC, FT4, BMP #### [facility] [address] [place] [address] Policy Checker: Tato Ibarra MD Laboratory - Chemistry and C hemistry - challengeon 01-06-2024 Albumin [Mass/Vol] 1.6 g/dL Low 3.4-5.0 [facility] ALP [Catalytic activity/Vol] 92 U/L 46-116 [facility] ALT [Catalytic activity/Vol] 19 U/L 14-59 [facility] AST [Catalytic activity/Vol] 34 U/L 15-37 [facility] Bilirubin [Mass/Vol] 0.3 mg/dL 0.2-1.0 [facility] Bilirubin.direct [Mass/Vol] 0.1 mg/dL 0.0-0.2 [facility] Calcium [Mass/Vol] 7.8 mg/dL Low 8.5-10.1 [facility] Chloride [Moles/Vol] 109 mmol/L High 98-107 [facility] CO2 [Moles/Vol] 28.5 mmol/L 21.0-32.[address] [facility] Creatinine [Mass/Vol] 0.63 mg/dL 0.55-1.02 [facility] GFR/1.73 sq M.predicted MDRD (S/P/Bld) [Vol rate/Area] mL/min/{1.73_m2} >=60 [facility] Glucose [Mass/Vol] 106 mg/dL 74-106 [facility] Potassium [Moles/Vol] 3.9 mmol/L 3.5-5.1 [facility] Protein [Mass/Vol] 3.7 g/dL Low 6.4-8.2 [facility] Sodium [Moles/Vol] 142 mmol/L 136-145 [facility] Urea nitrogen [Mass/Vol] 12.0 mg/dL 7.0-18.0 [facility] Urea nitrogen/Creatinine [Mass ratio] 19.0 mg/mg [facility] Laboratory - Hematology and Cell countson 01-06-2024 Immature granulocytes/100 WBC (Bld) 0.5 % 0.0-0.5 [facility] Lactic Acidon 01-06-2024 Lactic Acid,Whole Bl 1.4 mmol/L Normal 0.7-2.1 [facility] Comment on above: Performed By: #### O SMO, LD, MG, JESUS, TSHX, LIVP, B12FOL, LACTIC, FT4, BMP #### [facility] [address] [place] [id number] Policy Checker: Tato Ibarra MD Leukocytes [#/volume] correc patty for nucleated erythrocytes in Blood by Automated counon 01-06-2024 WBC corrected for nucl RBC Auto (Bld) [#/Vol] 7.8 10 3/uL 4.0-11.0 [facility] Liver Profileon 01-06-2024 Albumin [Mass/Vol] 2.4 g/dL Low 3.5-5.2 [facility] Comment on above: Performed By: #### O SMO, LD, MG, JESUS, TSHX, LIVP, B12FOL, LACTIC, FT4, BMP #### [facility] [address] [place] [phone] Policy Checker: Tato Ibarra MD Albumin/Glob Ratio 2.0 Normal 1.0-2.5 [facility] Comment on above: Performed By: #### O SMO, LD, MG, JEUSS, TSHX, LIVP, B12FOL, LACTIC, FT4, BMP #### [facility] [address] [place] [address] [phone] Policy Checker: Tato Ibarra MD Alkaline Phos 87 U/L Normal 35-104 [facility] Comment on above: Performed By: #### O SMO, LD, MG, JESUS, TSHX, LIVP, B12FOL, LACTIC, FT4, BMP #### [facility] [address] [place] [phone] Policy Checker: Tato Ibarra MD ALT [Catalytic activity/Vol] 12 U/L Normal -35 [facility] Comment on above: Performed By: #### O SMO, LD, MG, JESUS, TSHX, LIVP, B12FOL, LACTIC, FT4, BMP #### [address] [address] Policy Checker: Tato Ibarra MD AST [Catalytic activity/Vol] 30 U/L Normal -35 [facility] Comment on above: Performed By: #### O SMO, LD, MG, JESUS, TSHX, LIVP, B12FOL, LACTIC, FT4, BMP #### [address] [address] Policy Checker: Tato Ibarra MD Bilirubin [Mass/Vol] 0.4 mg/dL Normal 0.00-1.20 [facility] Comment on above: Performed By: #### O SMO, LD, MG, JESUS, TSHX, LIVP, B12FOL, LACTIC, FT4, BMP #### [address] [address] Policy Checker: Tato Ibarra MD Bilirubin, Indirect 0.2 mg/dL Normal 0.0-1.0 [facility] Comment on above: Performed By: #### O SMO, LD, MG, JESUS, TSHX, LIVP, B12FOL, LACTIC, FT4, BMP #### [facility] [address] [place] [phone] Policy Checker: Tato Ibarra MD Bilirubin.indirect [Mass/Vol] 0.2 mg/dL Normal 0.0-0.2 [facility] Comment on above: Performed By: #### O SMO, LD, MG, JESUS, TSHX, LIVP, B12FOL, LACTIC, FT4, BMP #### [address] [address] Policy Checker: Tato Ibarra MD Globulin (S) [Mass/Vol] 1.4 g/dL Normal [facility] Comment on above: Performed By: #### O SMO, LD, MG, JESUS, TSHX, LIVP, B12FOL, LACTIC, FT4, BMP #### [facility] [place] [address] Policy Checker: Tato Ibarra MD Protein [Mass/Vol] 3.8 g/dL Low 6.6-8.7 [facility] Comment on above: Performed By: #### O SMO, LD, MG, JESUS, TSHX, LIVP, B12FOL, LACTIC, FT4, BMP #### [facility] [employer] [facility] [place] [address] Policy Checker: Tato Ibarra MD Lymphocytes Auto (Bld) [#/Vo l]on 01-06-2024 Lymphocytes (Bld) [#/Vol] 1.1 10 3/uL Low 1.2-3.8 [facility] Lymphocytes/100 WBC Auto (Bl d)on 01-06-2024 Lymphocytes/100 WBC (Bld) 13.6 % Low 20.5-60.0 [facility] MCH Auto (RBC) [Entitic mass ]on 01-06-2024 MCH (RBC) [Entitic mass] 30.9 pg 26.7-34.0 [facility] MCHC Auto (RBC) [Mass/Vol]on 01-06-2024 MCHC (RBC) [Mass/Vol] 31.4 g/dL 29.9-35.2 [facility] MCV Auto (RBC) [Entitic vol] on 01-06-2024 MCV (RBC) [Entitic vol] 98.5 fL 81.0-99.0 [facility] MRSA, DNA, Nasalon Specimen Description .NASAL SWAB Normal [facility] Comment on above: Performed By: #### O SMO, LD, MG, JESUS, TSHX, LIVP, B12FOL, LACTIC, FT4, BMP #### [facility] [address] [place] [address] [phone] Policy Checker: Tato Ibarra MD Magnesiumon 01-06-2024 Magnesium [Mass/Vol] 1.9 mg/dL Normal 1.6-2.6 [facility] Comment on above: Performed By: #### O SMO, LD, MG, JESUS, TSHX, LIVP, B12FOL, LACTIC, FT4, BMP #### [facility] [address] [place] [address] [phone] Policy Checker: Tato Ibarra MD Monocytes Auto (Bld) [#/Vol] on 01-06-2024 Monocytes (Bld) [#/Vol] 0.4 10 3/uL 0.3-0.8 [facility] Monocytes/100 WBC Auto (Bld) on 01-06-2024 Monocytes/100 WBC (Bld) 5.6 % 1.7-12.0 [facility] Neutrophils Auto (Bld) [#/Vo l]on 01-06-2024 Neutrophils (Bld) [#/Vol] 6.1 10 3/uL 1.4-6.5 [facility] Neutrophils/100 WBC Auto (Bl d)on 01-06-2024 Neutrophils/100 WBC (Bld) 78.6 % High 43.0-75.0 [facility] No Panel Informationon 01-05 Eosinophils # (Auto) 0.1 10 3/uL 0.0-0.7 [facility] Immature Granulocyte # (Auto) 0.04 10 3/uL High 0.00-0.03 [facility] PTon 01-06-2024 INR Coag (PPP) [Relative time] 1.1 {INR} Normal [facility] Comment on above: Result Comment: Therapeutic Range: Moderate Anticoagulant Intensity: INR = 2.0-3.0 High Anticoagulant Intensity: INR = 2.5-3.5 Performed By: #### O SMO, LD, MG, JESUS, TSHX, LIVP, B12FOL, LACTIC, FT4, BMP #### [facility] [employer] [address] [place] [address] [phone] Policy Checker: Tato Ibarra MD PT Coag (PPP) [Time] 13.6 s Normal 11.7-14.9 [facility] Comment on above: Performed By: #### O SMO, LD, MG, JESUS, TSHX, LIVP, B12FOL, LACTIC, FT4, BMP #### [facility] [address] [place] [phone] Policy Checker: Tato Ibarra MD Platelet mean volume Auto (B ld) [Entitic vol]on 01-06-2024 Platelet mean volume (Bld) [Entitic vol] 10.6 fL 9.5-13.5 [facility] Platelets Auto (Bld) [#/Vol] on 01-06-2024 Platelets (Bld) [#/Vol] 261 10 3/uL 150-450 [facility] RBC Auto (Bld) [#/Vol]on RBC (Bld) [#/Vol] 1.94 10 6/uL Low 4.20-5.40 [facility] Serum or plasma albumin/glob ulin mass ratioon 01-06-2024 Albumin/Globulin [Mass ratio] 0.8 {ratio} [facility] Serum or plasma anion gap de terminationon 01-06-2024 Anion gap [Moles/Vol] 8.4 mmol/L [facility] Troponinon 01-06-2024 Troponin, High Sens 9 ng/L Normal 0-14 [facility] Comment on above: Result Comment: High Sensitivity Troponin values cannot be compared with other Troponin methodologies. Performed By: #### P TT, PT #### [facility] [address] [place] [phone] Policy Checker: Tato Ibarra MD Troponin, High Sens 9 ng/L Normal 0-14 [facility] Comment on above: Result Comment: High Sensitivity Troponin values cannot be compared with other Troponin methodologies. Performed By: #### O SMO, LD, MG, JESUS, TSHX, LIVP, B12FOL, LACTIC, FT4, BMP #### [facility] [address] [place] [address] [phone] Policy Checker: Tato Ibarra MD Troponin, High Sens 8 ng/L Normal 0-14 [facility] Comment on above: Result Comment: High Sensitivity Troponin values cannot be compared with other Troponin methodologies. Performed By: #### O SMO, LD, MG, JESUS, TSHX, LIVP, B12FOL, LACTIC, FT4, BMP #### [facility] [address] [place], [place] [phone] Policy Checker: Tato Ibarra MD Basic Metabolic Panelon 12-24 Anion gap [Moles/Vol] 9 mmol/L 9 - 16 mmol/L [facility] Calcium [Mass/Vol] 8.0 mg/dL Low 8.6 - 10.4 mg/dL [facility] Chloride [Moles/Vol] 103 mmol/L 98 - 107 mmol/L [facility] [employer] CO2 [Moles/Vol] 27 mmol/L 20 - 31 mmol/L [facility] [employer] [facility] Creatinine [Mass/Vol] 0.3 mg/dL Low 0.50 - 0.90 mg/dL [facility] Est, Glom Filt Rate - PINF [facility] Comment on above: These results are not [...] [Mass/Vol] 85 mg/dL 74 - 99 mg/dL [facility] Interpretation and review of laboratory results Abnormal [facility] Potassium [Moles/Vol] 2.8 mmol/L Critically low 3.7 - 5.3 mmol/L [facility] [employer] Sodium [Moles/Vol] 139 mmol/L 136 - 145 mmol/L [facility] Urea nitrogen [Mass/Vol] 3 mg/dL Low 6 - 20 mg/dL [facility]er[facility]LL[facility] Basic Metabolic Profon 01-04 Anion gap [Moles/Vol] 9 mmol/L Normal 9-16 [facility] Comment on above: Performed By: #### O SMO, LD, MG, JESUS, TSHX, LIVP, B12FOL, LACTIC, FT4, BMP #### [address] [address] Policy Checker: Tato Ibarra MD Calcium [Mass/Vol] 8.0 mg/dL Low 8.6-10.4 [facility] Comment on above: Performed By: #### O SMO, LD, MG, JESUS, TSHX, LIVP, B12FOL, LACTIC, FT4, BMP #### [address] [address] Policy Checker: Tato Ibarra MD Chloride [Moles/Vol] 103 mmol/L Normal 98-107 [facility] Comment on above: Performed By: #### O SMO, LD, MG, JESUS, TSHX, LIVP, B12FOL, LACTIC, FT4, BMP #### [address] [address] Policy Checker: Tato Ibarra MD CO2 [Moles/Vol] 27 mmol/L Normal 20-31 [facility] Comment on above: Performed By: #### O SMO, LD, MG, JESUS, TSHX, LIVP, B12FOL, LACTIC, FT4, BMP #### [address] [address] Policy Checker: Tato Ibarra MD Creatinine [Mass/Vol] 0.3 mg/dL Low 0.50-0.90 [facility] Comment on above: Performed By: #### O SMO, LD, MG, JESUS, TSHX, LIVP, B12FOL, LACTIC, FT4, BMP #### [address] [address] Policy Checker: Tato Ibarra MD GFR/1.73 sq M.predicted among [...] TSHX, LIVP, B12FOL, LACTIC, FT4, BMP #### [address] [address] Policy Checker: Tato Ibarra MD Glucose [Mass/Vol] 85 mg/dL Normal 74-99 [facility] Comment on above: Performed By: #### O SMO, LD, MG, JESUS, TSHX, LIVP, B12FOL, LACTIC, FT4, BMP #### [address] [address] Policy Checker: Tato Ibarra MD Potassium [Moles/Vol] 2.8 mmol/L Critically low 3.7-5.3 [facility] Comment on above: Performed By: #### O SMO, LD, MG, JESUS, TSHX, LIVP, B12FOL, LACTIC, FT4, BMP #### [facility] [employer] [address] [place] [phone] Policy Checker: Tato Ibarra MD Sodium [Moles/Vol] 139 mmol/L Normal 136-145 [facility] Comment on above: Performed By: #### O SMO, LD, MG, JESUS, TSHX, LIVP, B12FOL, LACTIC, FT4, BMP #### [address] [address] Policy Checker: Tato Ibarra MD Urea nitrogen [Mass/Vol] 3 mg/dL Low 6-20 [facility] Comment on above: Performed By: #### O SMO, LD, MG, JESUS, TSHX, LIVP, B12FOL, LACTIC, FT4, BMP #### [facility] [address] [place] [address] Policy Checker: Tato Ibarra MD CBC with Auto Differentialon 01-05-2024 Basophils (Bld) [#/Vol] [facility] Basophils/100 WBC (Bld) 0 % 0 - 2 % [facility] Eosinophils (Bld) [#/Vol] 0.08 10*3/uL [facility] Eosinophils/100 WBC (Bld) 2 % 1 - 4 % [facility] Erythrocyte distribution width (RBC) [Ratio] 19.8 % High 11.8 - 14.4 % [facility] Hematocrit (Bld) [Volume fraction] 27.3 % Low 36.3 - 47.1 % [facility] Hemoglobin (Bld) [Mass/Vol] 8.5 g/dL Low 11.9 - 15.1 g/dL [facility] Immature granulocytes (Bld) [#/Vol] [facility] Immature granulocytes/100 WBC (Bld) 0 % 0 [facility] Interpretation and review of laboratory results Abnormal [facility] Lymphocytes/100 WBC (Bld) 28 % 24 - 43 % [facility] Lymphocytes/100 WBC (Bld) 1.45 % [facility] MCH (RBC) [Entitic mass] 30.5 pg 25.2 - 33.5 pg [facility] MCHC (RBC) [Mass/Vol] 31.1 g/dL 28.4 - 34.8 g/dL [facility] MCV (RBC) [Entitic vol] 97.8 fL 82.6 - 102.9 fL [facility] Monocytes/100 WBC (Bld) 10 % 3 - 12 % [facility] Monocytes/100 WBC (Bld) 0.51 % [facility] Neutrophils/100 WBC (Bld) 60 % 36 - 65 % [facility] Nucleated RBC/100 WBC (Bld) [Ratio] 0.0 % 0.0 per 100 WBC [facility] Platelet mean volume (Bld) [Entitic vol] 10.1 fL 8.1 - 13.5 fL [facility] Platelets (Bld) [#/Vol] 227 10*3/uL [facility] RBC (Bld) [#/Vol] 2.79 10*6/uL Low 3.95 - 5.11 m/uL [facility] RBC (Bld) [#/Vol] ANISOCYTOSIS PRESENT [facility] Segmented neutrophils/100 WBC (Bld) 3.15 % [facility] WBC other (Bld) [#/Vol] 5.2 [facility] CBC with Diffon 01-05-2024 Abs. Basophil <0.03 Normal 0.00-0.20 [facility] Comment on above: Performed By: #### O SMO, LD, MG, JESUS, TSHX, LIVP, B12FOL, LACTIC, FT4, BMP #### [place] [address] Policy Checker: Tato Ibarra MD Abs.Imm.Granulocyte <0.03 Normal 0.00-0.30 [facility] Comment on above: Performed By: #### O SMO, LD, MG, JESUS, TSHX, LIVP, B12FOL, LACTIC, FT4, BMP #### [facility] [employer] [address] [place] [address] Policy Checker: Tato Ibarra MD Abs.Neutrophil (Seg) 3.15 k/uL Normal 1.50-8.10 [facility] Comment on above: Performed By: #### O SMO, LD, MG, JESUS, TSHX, LIVP, B12FOL, LACTIC, FT4, BMP #### [facility] [employer] [address] [place] [address] Policy Checker: Tato Ibarra MD Basophils/100 WBC (Bld) 0 % Normal 0-2 [facility] Comment on above: Performed By: #### O SMO, LD, MG, JESUS, TSHX, LIVP, B12FOL, LACTIC, FT4, BMP #### [place] [address] Policy Checker: Tato Ibarra MD Eosinophils (Bld) [#/Vol] 0.08 10*3/uL Normal 0.00-0.44 [facility] Comment on above: Performed By: #### O SMO, LD, MG, JESUS, TSHX, LIVP, B12FOL, LACTIC, FT4, BMP #### [place] [address] Policy Checker: Tato Ibarra MD Eosinophils/100 WBC (Bld) 2 % Normal 1-4 [facility] Comment on above: Performed By: #### O SMO, LD, MG, JESUS, TSHX, LIVP, B12FOL, LACTIC, FT4, BMP #### [place] [address] Policy Checker: Tato Ibarra MD Erythrocyte distribution width (RBC) [Ratio] 19.8 % High 11.8-14.4 [facility] Comment on above: Performed By: #### O SMO, LD, MG, JESUS, TSHX, LIVP, B12FOL, LACTIC, FT4, BMP #### [place] [address] Policy Checker: Tato Ibarra MD Hematocrit (Bld) [Volume fraction] 27.3 % Low 36.3-47.1 [facility] Comment on above: Performed By: #### O SMO, LD, MG, JESUS, TSHX, LIVP, B12FOL, LACTIC, FT4, BMP #### [place] [address] Policy Checker: Tato Ibarra MD Hemoglobin (Bld) [Mass/Vol] 8.5 g/dL Low 11.9-15.1 [facility] Comment on above: Performed By: #### O SMO, LD, MG, JESUS, TSHX, LIVP, B12FOL, LACTIC, FT4, BMP #### [address] [address] Policy Checker: Tato Ibarra MD Immature granulocytes/100 WBC (Bld) 0 % Normal 0 [facility] Comment on above: Performed By: #### O SMO, LD, MG, JESUS, TSHX, LIVP, B12FOL, LACTIC, FT4, BMP #### [address] [phone] Policy Checker: Tato Ibarra MD Lymphocytes (Bld) [#/Vol] 1.45 10*3/uL Normal 1.10-3.70 [facility] Comment on above: Performed By: #### O SMO, LD, MG, JESUS, TSHX, LIVP, B12FOL, LACTIC, FT4, BMP #### [address] [address] Policy Checker: Tato Ibarra MD Lymphocytes/100 WBC (Bld) 28 % Normal 24-43 [facility] Comment on above: Performed By: #### O SMO, LD, MG, JESUS, TSHX, LIVP, B12FOL, LACTIC, FT4, BMP #### [address] [address] Policy Checker: Tato Ibarra MD MCH (RBC) [Entitic mass] 30.5 pg Normal 25.2-33.5 [facility] Comment on above: Performed By: #### O SMO, LD, MG, JESUS, TSHX, LIVP, B12FOL, LACTIC, FT4, BMP #### [facility] [employer] [address] [place] [phone] Policy Checker: Tato Ibarra MD MCHC (RBC) [Mass/Vol] 31.1 g/dL Normal 28.4-34.8 [facility] Comment on above: Performed By: #### O SMO, LD, MG, JESUS, TSHX, LIVP, B12FOL, LACTIC, FT4, BMP #### [address] [address] Policy Checker: Tato Ibarra MD MCV (RBC) [Entitic vol] 97.8 fL Normal 82.6-102.9 [facility] Comment on above: Performed By: #### O SMO, LD, MG, JESUS, TSHX, LIVP, B12FOL, LACTIC, FT4, BMP #### [address] [address] Policy Checker: Tato Ibarra MD Monocytes (Bld) [#/Vol] 0.51 10*3/uL Normal 0.10-1.20 [facility] Comment on above: Performed By: #### O SMO, LD, MG, JESUS, TSHX, LIVP, B12FOL, LACTIC, FT4, BMP #### [address] [address] Policy Checker: Tato Ibarra MD Monocytes/100 WBC (Bld) 10 % Normal 3-12 [facility] Comment on above: Performed By: #### O SMO, LD, MG, JESUS, TSHX, LIVP, B12FOL, LACTIC, FT4, BMP #### [address] [address] Policy Checker: Tato Ibarra MD Neutrophil (Seg) 60 % Normal 36-65 [facility] Comment on above: Performed By: #### O SMO, LD, MG, JESUS, TSHX, LIVP, B12FOL, LACTIC, FT4, BMP #### [address] [address] Policy Checker: Tato Ibarra MD NRBC Automated 0.0 per 100 WBC Normal 0.0 [facility] Comment on above: Performed By: #### O SMO, LD, MG, JESUS, TSHX, LIVP, B12FOL, LACTIC, FT4, BMP #### [address] [phone] Policy Checker: Tato Ibarra MD Platelet mean volume (Bld) [Entitic vol] 10.1 fL Normal 8.1-13.5 [facility] Comment on above: Performed By: #### O SMO, LD, MG, JESUS, TSHX, LIVP, B12FOL, LACTIC, FT4, BMP #### [address] [phone] Policy Checker: Tato Ibarra MD Platelets (Bld) [#/Vol] 227 10*3/uL Normal 138-453 [facility] Comment on above: Performed By: #### O SMO, LD, MG, JESUS, TSHX, LIVP, B12FOL, LACTIC, FT4, BMP #### [address] [phone] Policy Checker: Tato Ibarra MD RBC (Bld) [#/Vol] 2.79 10*6/uL Low 3.95-5.11 [facility] Comment on above: Performed By: #### O SMO, LD, MG, JESUS, TSHX, LIVP, B12FOL, LACTIC, FT4, BMP #### [address] [phone] Policy Checker: Tato Ibarra MD RBC morphology finding Nom (Bld) ANISOCYTOSIS PRESENT Normal [facility] Comment on above: Performed By: #### O SMO, LD, MG, JESUS, TSHX, LIVP, B12FOL, LACTIC, FT4, BMP #### [address] [phone] Policy Checker: Tato Ibarra MD WBC (Bld) [#/Vol] 5.2 10*3/uL Normal 3.5-11.3 [facility] Comment on above: Performed By: #### O SMO, LD, MG, JESUS, TSHX, LIVP, B12FOL, LACTIC, FT4, BMP #### [facility] [address] [place] [phone] Policy Checker: Tato Ibarra MD Hemoglobin and Hematocriton 01-05-2024 Interpretation and review of laboratory results Abnormal [facility] Hgb/Hcton 01-05-2024 Hematocrit (Bld) [Volume fraction] 29.3 % Low 36.3-47.1 [facility] Comment on above: Performed By: #### O SMO, LD, MG, JESUS, TSHX, LIVP, B12FOL, LACTIC, FT4, BMP #### [facility] [address] [place] [phone] Policy Checker: Tato Ibarra MD Hemoglobin (Bld) [Mass/Vol] 9.4 g/dL Low 11.9-15.1 [facility] Comment on above: Performed By: #### O SMO, LD, MG, JESUS, TSHX, LIVP, B12FOL, LACTIC, FT4, BMP #### [facility] [address] [place] [phone] Policy Checker: Tato Ibarra MD K (Potassium)on 01-05-2024 Potassium [Moles/Vol] 3.4 mmol/L Low 3.7-5.3 [facility] Comment on above: Performed By: #### O SMO, LD, MG, JESUS, TSHX, LIVP, B12FOL, LACTIC, FT4, BMP #### [facility] [address] [place] [phone] Policy Checker: Tato Ibarra MD Potassiumon 01-05-2024 Interpretation and review of laboratory results Abnormal [facility] Potassium [Moles/Vol] 3.4 mmol/L Low 3.7 - 5.3 mmol/L [facility] Basic Metabolic Panelon 12-24 Anion gap [Moles/Vol] 10 mmol/L 9 - 16 mmol/L [facility] Calcium [Mass/Vol] 8.0 mg/dL Low 8.6 - 10.4 mg/dL [facility] Chloride [Moles/Vol] 104 mmol/L 98 - 107 mmol/L [facility] CO2 [Moles/Vol] 24 mmol/L 20 - 31 mmol/L [facility] Creatinine [Mass/Vol] 0.3 mg/dL Low 0.50 - 0.90 mg/dL [facility] Est, Glootilia Mayt Rate - [facility] Comment on above: These results are not [...] [Mass/Vol] 97 mg/dL 74 - 99 mg/dL [facility] Interpretation and review of laboratory results Abnormal [facility] Potassium [Moles/Vol] 3.1 mmol/L Low 3.7 - 5.3 mmol/L [facility] Sodium [Moles/Vol] 138 mmol/L 136 - 145 mmol/L [facility] Urea nitrogen [Mass/Vol] 3 mg/dL Low 6 - 20 mg/dL [facility] Basic Metabolic Profon 01-03 Anion gap [Moles/Vol] 10 mmol/L Normal - [facility] Comment on above: Performed By: #### O SMO, LD, MG, JESUS, TSHX, LIVP, B12FOL, LACTIC, FT4, BMP #### [facility] [employer] [address] [place] [phone] Policy Checker: Tato Ibarra MD Calcium [Mass/Vol] 8.0 mg/dL Low 8.6-10.4 [facility] Comment on above: Performed By: #### O SMO, LD, MG, JESUS, TSHX, LIVP, B12FOL, LACTIC, FT4, BMP #### [address] [phone] Policy Checker: Tato Ibarra MD Chloride [Moles/Vol] 104 mmol/L Normal 98-107 [facility] Comment on above: Performed By: #### O SMO, LD, MG, JESUS, TSHX, LIVP, B12FOL, LACTIC, FT4, BMP #### [address] [phone] Policy Checker: Tato Ibarra MD CO2 [Moles/Vol] 24 mmol/L Normal 20-31 [facility] Comment on above: Performed By: #### O SMO, LD, MG, JESUS, TSHX, LIVP, B12FOL, LACTIC, FT4, BMP #### [address] [phone] Policy Checker: Tato Ibarra MD Creatinine [Mass/Vol] 0.3 mg/dL Low 0.50-0.90 [facility] Comment on above: Performed By: #### O SMO, LD, MG, JESUS, TSHX, LIVP, B12FOL, LACTIC, FT4, BMP #### [address] [address] Policy Checker: Tato Ibarra MD GFR/1.73 sq M.predicted among [...] TSHX, LIVP, B12FOL, LACTIC, FT4, BMP #### [facility] [address] [place] [phone] Policy Checker: Tato Ibarra MD Glucose [Mass/Vol] 97 mg/dL Normal 74-99 [facility] Comment on above: Performed By: #### O SMO, LD, MG, JESUS, TSHX, LIVP, B12FOL, LACTIC, FT4, BMP #### [facility] [address] [place] [address] [phone] Policy Checker: Tato Ibarra MD Potassium [Moles/Vol] 3.1 mmol/L Low 3.7-5.3 [facility] Comment on above: Performed By: #### O SMO, LD, MG, JESUS, TSHX, LIVP, B12FOL, LACTIC, FT4, BMP #### [facility] [employer] [address] [place] [address] [phone] Policy Checker: Tato Ibarra MD Sodium [Moles/Vol] 138 mmol/L Normal 136-145 [facility] Comment on above: Performed By: #### O SMO, LD, MG, JESUS, TSHX, LIVP, B12FOL, LACTIC, FT4, BMP #### [facility] [employer] [address] [place] [address] [id number] Policy Checker: Tato Ibarra MD Urea nitrogen [Mass/Vol] 3 mg/dL Low 6-20 [facility] Comment on above: Performed By: #### O SMO, LD, MG, JESUS, TSHX, LIVP, B12FOL, LACTIC, FT4, BMP #### [facility] [address] [place] [address] [id number] Policy Checker: Tato Ibarra MD CBC with Auto Differentialon 01-04-2024 Basophils (Bld) [#/Vol] 0.00 10*3/uL [facility] Basophils/100 WBC (Bld) 0 % 0 - 2 % [facility] Eosinophils (Bld) [#/Vol] 0.07 10*3/uL [facility] Eosinophils/100 WBC (Bld) 1 % 1 - 4 % [facility] Erythrocyte distribution width (RBC) [Ratio] 21.1 % High 11.8 - 14.4 % [facility] Hematocrit (Bld) [Volume fraction] 27.7 % Low 36.3 - 47.1 % [facility] Hemoglobin (Bld) [Mass/Vol] 8.8 g/dL Low 11.9 - 15.1 g/dL [facility] Immature granulocytes (Bld) [#/Vol] 0.07 10*3/uL [facility] Immature granulocytes/100 WBC (Bld) 1 % High 0 [facility] Interpretation and review of laboratory results Abnormal [facility] Lymphocytes/100 WBC (Bld) 16 % Low 24 - 43 % [facility] Lymphocytes/100 WBC (Bld) 1.09 % Low [facility] MCH (RBC) [Entitic mass] 31.3 pg 25.2 - 33.5 pg [facility] MCHC (RBC) [Mass/Vol] 31.8 g/dL 28.4 - 34.8 g/dL [facility] MCV (RBC) [Entitic vol] 98.6 fL 82.6 - 102.9 fL [facility] Monocytes/100 WBC (Bld) 11 % 3 - 12 % [facility] Monocytes/100 WBC (Bld) 0.75 % [facility] Morphology Ritesh (Bld) [Interp] ANISOCYTOSIS PRESENT [facility] Neutrophils/100 WBC (Bld) 71 % High 36 - 65 % [facility] Nucleated RBC/100 WBC (Bld) [Ratio] 0.0 % 0.0 per 100 WBC [facility] Platelet mean volume (Bld) [Entitic vol] 9.4 fL 8.1 - 13.5 fL [facility] Platelets (Bld) [#/Vol] 234 10*3/uL [facility] RBC (Bld) [#/Vol] 2.81 10*6/uL Low 3.95 - 5.11 m/uL [facility] Segmented neutrophils/100 WBC (Bld) 4.82 % [facility] WBC other (Bld) [#/Vol] 6.8 [facility] CBC with Diffon 01-04-2024 Abs. Basophil 0.00 k/uL Normal 0.00-0.20 [facility] Comment on above: Performed By: #### O SMO, LD, MG, JESUS, TSHX, LIVP, B12FOL, LACTIC, FT4, BMP #### [facility] [employer] [address] [place] [address] [phone] Policy Checker: Tato Ibarra MD Abs.Imm.Granulocyte 0.07 k/uL Normal 0.00-0.30 [facility] Comment on above: Performed By: #### O SMO, LD, MG, JESUS, TSHX, LIVP, B12FOL, LACTIC, FT4, BMP #### [facility] [employer] [address] [place] [address] Policy Checker: Tato Ibarra MD Abs.Neutrophil (Seg) 4.82 k/uL Normal 1.50-8.10 [facility] Comment on above: Performed By: #### O SMO, LD, MG, JESUS, TSHX, LIVP, B12FOL, LACTIC, FT4, BMP #### [facility] [employer] [address] [place] [phone] Policy Checker: Tato Ibarra MD Basophils/100 WBC (Bld) 0 % Normal 0-2 [facility] Comment on above: Performed By: #### O SMO, LD, MG, JESUS, TSHX, LIVP, B12FOL, LACTIC, FT4, BMP #### [facility] [employer] [address] [place] [address] [phone] Policy Checker: Tato Ibarra MD Eosinophils (Bld) [#/Vol] 0.07 10*3/uL Normal 0.00-0.44 [facility] Comment on above: Performed By: #### O SMO, LD, MG, JESUS, TSHX, LIVP, B12FOL, LACTIC, FT4, BMP #### [facility] [employer] [address] [place] [phone] Policy Checker: Tato Ibarra MD Eosinophils/100 WBC (Bld) 1 % Normal 1-4 [facility] Comment on above: Performed By: #### O SMO, LD, MG, JESUS, TSHX, LIVP, B12FOL, LACTIC, FT4, BMP #### [address] [address] Policy Checker: Tato Ibarra MD Immature granulocytes/100 WBC (Bld) 1 % High 0 [facility] Comment on above: Performed By: #### O SMO, LD, MG, JESUS, TSHX, LIVP, B12FOL, LACTIC, FT4, BMP #### [facility] [employer] [address] [place] [phone] Policy Checker: Tato Ibarra MD Lymphocytes (Bld) [#/Vol] 1.09 10*3/uL Low 1.10-3.70 [facility] Comment on above: Performed By: #### O SMO, LD, MG, JESUS, TSHX, LIVP, B12FOL, LACTIC, FT4, BMP #### [facility] [employer] [address] [place] [phone] Policy Checker: Tato Ibarra MD Lymphocytes/100 WBC (Bld) 16 % Low 24-43 [facility] Comment on above: Performed By: #### O SMO, LD, MG, JESUS, TSHX, LIVP, B12FOL, LACTIC, FT4, BMP #### [facility] [employer] [address] [place] [phone] Policy Checker: Tato Ibarra MD Monocytes (Bld) [#/Vol] 0.75 10*3/uL Normal 0.10-1.20 [facility] Comment on above: Performed By: #### O SMO, LD, MG, JESUS, TSHX, LIVP, B12FOL, LACTIC, FT4, BMP #### [facility] [address] [place] [phone] Policy Checker: Tato Ibarra MD Monocytes/100 WBC (Bld) 11 % Normal 3-12 [facility] Comment on above: Performed By: #### O SMO, LD, MG, JESUS, TSHX, LIVP, B12FOL, LACTIC, FT4, BMP #### [address] [address] Policy Checker: Tato Ibarra MD Morphology Ritesh (Bld) [Interp] ANISOCYTOSIS PRESENT Normal [facility] Comment on above: Performed By: #### O SMO, LD, MG, JESUS, TSHX, LIVP, B12FOL, LACTIC, FT4, BMP #### [address] [address] Policy Checker: Tato Ibarra MD Neutrophil (Seg) 71 % High 36-65 [facility] Comment on above: Performed By: #### O SMO, LD, MG, JESUS, TSHX, LIVP, B12FOL, LACTIC, FT4, BMP #### [address] [address] Policy Checker: Tato Ibarra MD Erythrocyte distribution width (RBC) [Ratio] 21.1 % High 11.8-14.4 [facility] Comment on above: Performed By: #### O SMO, LD, MG, JESUS, TSHX, LIVP, B12FOL, LACTIC, FT4, BMP #### [facility] [employer] [address] [place] [phone] Policy Checker: Tato Ibarra MD Hematocrit (Bld) [Volume fraction] 27.7 % Low 36.3-47.1 [facility] Comment on above: Performed By: #### O SMO, LD, MG, JESUS, TSHX, LIVP, B12FOL, LACTIC, FT4, BMP #### [address] [address] Policy Checker: Tato Ibarra MD Hemoglobin (Bld) [Mass/Vol] 8.8 g/dL Low 11.9-15.1 [facility] Comment on above: Performed By: #### O SMO, LD, MG, JESUS, TSHX, LIVP, B12FOL, LACTIC, FT4, BMP #### [address] [phone] Policy Checker: Tato Ibarra MD MCH (RBC) [Entitic mass] 31.3 pg Normal 25.2-33.5 [facility] Comment on above: Performed By: #### O SMO, LD, MG, JESUS, TSHX, LIVP, B12FOL, LACTIC, FT4, BMP #### [address] [phone] Policy Checker: Tato Ibarra MD MCHC (RBC) [Mass/Vol] 31.8 g/dL Normal 28.4-34.8 [facility] Comment on above: Performed By: #### O SMO, LD, MG, JESUS, TSHX, LIVP, B12FOL, LACTIC, FT4, BMP #### [address] [address] Policy Checker: Tato Ibarra MD MCV (RBC) [Entitic vol] 98.6 fL Normal 82.6-102.9 [facility] Comment on above: Performed By: #### O SMO, LD, MG, JESUS, TSHX, LIVP, B12FOL, LACTIC, FT4, BMP #### [address] [address] Policy Checker: Tato Ibarra MD NRBC Automated 0.0 per 100 WBC Normal 0.0 [facility] Comment on above: Performed By: #### O SMO, LD, MG, JESUS, TSHX, LIVP, B12FOL, LACTIC, FT4, BMP #### [address] [phone] Policy Checker: Tato Ibarra MD Platelet mean volume (Bld) [Entitic vol] 9.4 fL Normal 8.1-13.5 [facility] Comment on above: Performed By: #### O SMO, LD, MG, JESUS, TSHX, LIVP, B12FOL, LACTIC, FT4, BMP #### [facility] [address] [place] [address] [phone] Policy Checker: Tato Ibarra MD Platelets (Bld) [#/Vol] 234 10*3/uL Normal 138-453 [facility] Comment on above: Performed By: #### O SMO, LD, MG, JESUS, TSHX, LIVP, B12FOL, LACTIC, FT4, BMP #### [facility] [employer] [address] [place] [address] [phone] Policy Checker: Tato Ibarra MD RBC (Bld) [#/Vol] 2.81 10*6/uL Low 3.95-5.11 [facility] Comment on above: Performed By: #### O SMO, LD, MG, JESUS, TSHX, LIVP, B12FOL, LACTIC, FT4, BMP #### [facility] [employer] [address] [place] [phone] Policy Checker: Tato Ibarra MD WBC (Bld) [#/Vol] 6.8 10*3/uL Normal 3.5-11.3 [facility] Comment on above: Performed By: #### O SMO, LD, MG, JESUS, TSHX, LIVP, B12FOL, LACTIC, FT4, BMP #### [facility] [employer] [address] [place] [address] [phone] Policy Checker: Tato Ibarra MD Hemoglobin and Hematocriton 01-04-2024 Hematocrit (Bld) [Volume fraction] 27.8 % Low 36.3 - 47.1 % [facility] Hemoglobin (Bld) [Mass/Vol] 8.9 g/dL Low 11.9 - 15.1 g/dL [facility] Interpretation and review of laboratory results Abnormal [facility] Hgb/Hcton 01-04-2024 Hematocrit (Bld) [Volume fraction] 27.8 % Low 36.3-47.1 [facility] Comment on above: Performed By: #### O SMO, LD, MG, JESUS, TSHX, LIVP, B12FOL, LACTIC, FT4, BMP #### [address] [address] Policy Checker: Tato Ibarra MD Hemoglobin (Bld) [Mass/Vol] 8.9 g/dL Low 11.9-15.1 [facility] Comment on above: Performed By: #### O SMO, LD, MG, JESUS, TSHX, LIVP, B12FOL, LACTIC, FT4, BMP #### [address] [address] Policy Checker: Tato Ibarra MD Basic Metab w/rfx MGon 01-029 Anion gap [Moles/Vol] 10 mmol/L Normal 9-16 [facility] Comment on above: Performed By: #### P TT, PT #### [address] [address] Policy Checker: Tato Ibarra MD Calcium [Mass/Vol] 8.2 mg/dL Low 8.6-10.4 [facility] Comment on above: Performed By: #### P TT, PT #### [address] [address] Policy Checker: Tato Ibarra MD Chloride [Moles/Vol] 106 mmol/L Normal 98-107 [facility] Comment on above: Performed By: #### P TT, PT #### [address] [address] Policy Checker: Tato Ibarra MD CO2 [Moles/Vol] 24 mmol/L Normal 20-31 [facility] Comment on above: Performed By: #### P TT, PT #### [address] [address] Policy Checker: Tato Ibarra MD Creatinine [Mass/Vol] 0.3 mg/dL Low 0.50-0.90 [facility] Comment on above: Performed By: #### P TT, PT #### [address] [address] Policy Checker: Tato Ibarra MD GFR/1.73 sq M.predicted among [...] Performed By: #### P TT, PT #### [address] [address] Policy Checker: Tato Ibarra MD Glucose [Mass/Vol] 95 mg/dL Normal 74-99 [facility] Comment on above: Performed By: #### P TT, PT #### [address] [address] Policy Checker: Tato Ibarra MD Potassium [Moles/Vol] 3.4 mmol/L Low 3.7-5.3 [facility] Comment on above: Performed By: #### P TT, PT #### [address] [address] Policy Checker: Tato Ibarra MD Sodium [Moles/Vol] 140 mmol/L Normal 136-145 [facility] Comment on above: Performed By: #### P TT, PT #### [facility] [address] [place], [place] [phone] Policy Checker: Tato Ibarra MD Urea nitrogen [Mass/Vol] 3 mg/dL Low 6-20 [facility] Comment on above: Performed By: #### P TT, PT #### [facility] [address] [place], [place] [phone] Policy Checker: Tato Ibarra MD Basic Metabolic Panel w/ Ref jacinto to MGon 01-03-2024 Anion gap [Moles/Vol] 10 mmol/L 9 - 16 mmol/L [facility] Calcium [Mass/Vol] 8.2 mg/dL Low 8.6 - 10.4 mg/dL [facility] Chloride [Moles/Vol] 106 mmol/L 98 - 107 mmol/L [facility] CO2 [Moles/Vol] 24 mmol/L 20 - 31 mmol/L [facility] [employer] Creatinine [Mass/Vol] 0.3 mg/dL Low 0.50 - 0.90 mg/dL [facility] [employer] Est, Glom Filt Rate - PINF [facility] [employer] Comment on above: These results are not [...] [Mass/Vol] 95 mg/dL 74 - 99 mg/dL [facility] [employer] Interpretation and review of laboratory results Abnormal [facility] Potassium [Moles/Vol] 3.4 mmol/L Low 3.7 - 5.3 mmol/L [facility] Sodium [Moles/Vol] 140 mmol/L 136 - 145 mmol/L [facility] Urea nitrogen [Mass/Vol] 3 mg/dL Low 6 - 20 mg/dL [facility] CBCon 01-03-2024 Erythrocyte distribution width (RBC) [Ratio] 22.1 % High 11.8 - 14.4 % [facility] Hematocrit (Bld) [Volume fraction] 26.2 % Low 36.3 - 47.1 % [facility] Hemoglobin (Bld) [Mass/Vol] 9.0 g/dL Low 11.9 - 15.1 g/dL [facility] Interpretation and review of laboratory results Abnormal [facility] MCH (RBC) [Entitic mass] 31.9 pg 25.2 - 33.5 pg [facility] MCHC (RBC) [Mass/Vol] 34.4 g/dL 28.4 - 34.8 g/dL [facility] MCV (RBC) [Entitic vol] 92.9 fL 82.6 - 102.9 fL [facility] Nucleated RBC/100 WBC (Bld) [Ratio] 0.0 % 0.0 per 100 WBC [facility] Platelet mean volume (Bld) [Entitic vol] 9.6 fL 8.1 - 13.5 fL [facility] Platelets (Bld) [#/Vol] 219 10*3/uL [facility] RBC (Bld) [#/Vol] 2.82 10*6/uL Low 3.95 - 5.11 m/uL [facility] WBC other (Bld) [#/Vol] 8.4 [facility] Erythrocyte distribution width (RBC) [Ratio] 22.1 % High 11.8-14.4 [facility] Comment on above: Performed By: #### O SMO, LD, MG, JESUS, TSHX, LIVP, B12FOL, LACTIC, FT4, BMP #### [facility] [place] [address] Policy Checker: Tato Ibarra MD Hematocrit (Bld) [Volume fraction] 26.2 % Low 36.3-47.1 [facility] Comment on above: Performed By: #### O SMO, LD, MG, JESUS, TSHX, LIVP, B12FOL, LACTIC, FT4, BMP #### [facility] [address] [place] [address] [phone] Policy Checker: Tato Ibarra MD Hemoglobin (Bld) [Mass/Vol] 9.0 g/dL Low 11.9-15.1 [facility] Comment on above: Performed By: #### O SMO, LD, MG, JESUS, TSHX, LIVP, B12FOL, LACTIC, FT4, BMP #### [address] [phone] Policy Checker: Tato Ibarra MD MCH (RBC) [Entitic mass] 31.9 pg Normal 25.2-33.5 [facility] Comment on above: Performed By: #### O SMO, LD, MG, JESUS, TSHX, LIVP, B12FOL, LACTIC, FT4, BMP #### [address] [phone] Policy Checker: Tato Ibarra MD MCHC (RBC) [Mass/Vol] 34.4 g/dL Normal 28.4-34.8 [facility] Comment on above: Performed By: #### O SMO, LD, MG, JESUS, TSHX, LIVP, B12FOL, LACTIC, FT4, BMP #### [address] [phone] Policy Checker: Tato Ibarra MD MCV (RBC) [Entitic vol] 92.9 fL Normal 82.6-102.9 [facility] Comment on above: Performed By: #### O SMO, LD, MG, JESUS, TSHX, LIVP, B12FOL, LACTIC, FT4, BMP #### [address] [phone] Policy Checker: Tato Ibarra MD NRBC Automated 0.0 per 100 WBC Normal 0.0 [facility] Comment on above: Performed By: #### O SMO, LD, MG, JESUS, TSHX, LIVP, B12FOL, LACTIC, FT4, BMP #### [facility] [address] [place] [address] [phone] Policy Checker: Tato Ibarra MD Platelet mean volume (Bld) [Entitic vol] 9.6 fL Normal 8.1-13.5 [facility] Comment on above: Performed By: #### O SMO, LD, MG, JESUS, TSHX, LIVP, B12FOL, LACTIC, FT4, BMP #### [facility] [address] [place] [address] [phone] Policy Checker: Tato Ibarra MD Platelets (Bld) [#/Vol] 219 10*3/uL Normal 138-453 [facility] Comment on above: Performed By: #### O SMO, LD, MG, JESUS, TSHX, LIVP, B12FOL, LACTIC, FT4, BMP #### [facility] [employer] [address] [place] [address] [phone] Policy Checker: Tato Ibarra MD RBC (Bld) [#/Vol] 2.82 10*6/uL Low 3.95-5.11 [facility] Comment on above: Performed By: #### O SMO, LD, MG, JESUS, TSHX, LIVP, B12FOL, LACTIC, FT4, BMP #### [facility] [address] [place] [address] [phone] Policy Checker: Tato Ibarra MD WBC (Bld) [#/Vol] 8.4 10*3/uL Normal 3.5-11.3 [facility] Comment on above: Performed By: #### O SMO, LD, MG, JESUS, TSHX, LIVP, B12FOL, LACTIC, FT4, BMP #### [facility] [address] [place] [phone] Policy Checker: Tato Ibarra MD CBC with Auto Differentialon 01-03-2024 Basophils (Bld) [#/Vol] 0.00 10*3/uL [facility] Basophils/100 WBC (Bld) 0 % 0 - 2 % [facility] Eosinophils (Bld) [#/Vol] 0.00 10*3/uL [facility] Eosinophils/100 WBC (Bld) 0 % Low 1 - 4 % [facility] Erythrocyte distribution width (RBC) [Ratio] 21.8 % High 11.8 - 14.4 % [facility] Hematocrit (Bld) [Volume fraction] 25.5 % Low 36.3 - 47.1 % [facility] Hemoglobin (Bld) [Mass/Vol] 8.6 g/dL Low 11.9 - 15.1 g/dL [facility] Immature granulocytes (Bld) [#/Vol] 0.00 10*3/uL [facility] Immature granulocytes/100 WBC (Bld) 0 % 0 [facility] Interpretation and review of laboratory results Abnormal [facility] Lymphocytes/100 WBC (Bld) 17 % Low 24 - 43 % [facility] Lymphocytes/100 WBC (Bld) 1.24 % [facility] MCH (RBC) [Entitic mass] 31.6 pg 25.2 - 33.5 pg [facility] MCHC (RBC) [Mass/Vol] 33.7 g/dL 28.4 - 34.8 g/dL [facility] MCV (RBC) [Entitic vol] 93.8 fL 82.6 - 102.9 fL [facility] Monocytes/100 WBC (Bld) 9 % 3 - 12 % [facility] Monocytes/100 WBC (Bld) 0.66 % [facility] Morphology Ritesh (Bld) [Interp] ANISOCYTOSIS PRESENT [facility] Neutrophils/100 WBC (Bld) 74 % High 36 - 65 % [facility] Nucleated RBC/100 WBC (Bld) [Ratio] 0.0 % 0.0 per 100 WBC [facility] Platelet mean volume (Bld) [Entitic vol] 9.7 fL 8.1 - 13.5 fL [facility] Platelets (Bld) [#/Vol] 220 10*3/uL [facility] RBC (Bld) [#/Vol] 2.72 10*6/uL Low 3.95 - 5.11 m/uL [facility] Segmented neutrophils/100 WBC (Bld) 5.40 % [facility] WBC other (Bld) [#/Vol] 7.3 [facility] CBC with Diffon 01-03-2024 Abs. Basophil 0.00 k/uL Normal 0.00-0.20 [facility] Comment on above: Performed By: #### P TT, PT #### [place] [address] Policy Checker: Tato Ibarra MD Abs.Imm.Granulocyte 0.00 k/uL Normal 0.00-0.30 [facility] Comment on above: Performed By: #### P TT, PT #### [place] [address] Policy Checker: Tato Ibarra MD Abs.Neutrophil (Seg) 5.40 k/uL Normal 1.50-8.10 [facility] Comment on above: Performed By: #### P TT, PT #### [place] [address] Policy Checker: aTto Ibarra MD Basophils/100 WBC (Bld) 0 % Normal 0-2 [facility] Comment on above: Performed By: #### P TT, PT #### [place] [address] Policy Checker: Tato Ibarra MD Eosinophils (Bld) [#/Vol] 0.00 10*3/uL Normal 0.00-0.44 [facility] Comment on above: Performed By: #### P TT, PT #### [place] [address] Policy Checker: Tato Ibarra MD Eosinophils/100 WBC (Bld) 0 % Low 1-4 [facility] Comment on above: Performed By: #### P TT, PT #### [address] [address] Policy Checker: Tato Ibarra MD Immature granulocytes/100 WBC (Bld) 0 % Normal 0 [facility] Comment on above: Performed By: #### P TT, PT #### [address] [address] Policy Checker: Tato Ibarra MD Lymphocytes (Bld) [#/Vol] 1.24 10*3/uL Normal 1.10-3.70 [facility] Comment on above: Performed By: #### P TT, PT #### [address] [address] Policy Checker: Tato Ibarra MD Lymphocytes/100 WBC (Bld) 17 % Low 24-43 [facility] Comment on above: Performed By: #### P TT, PT #### [address] [address] Policy Checker: Tato Ibarra MD Monocytes (Bld) [#/Vol] 0.66 10*3/uL Normal 0.10-1.20 [facility] Comment on above: Performed By: #### P TT, PT #### [address] [address] Policy Checker: Tato Ibarra MD Monocytes/100 WBC (Bld) 9 % Normal 3-12 [facility] Comment on above: Performed By: #### P TT, PT #### [address] [address] Policy Checker: Tato Ibarra MD Morphology Ritesh (Bld) [Interp] ANISOCYTOSIS PRESENT Normal [facility] Comment on above: Performed By: #### P TT, PT #### [address] [address] Policy Checker: Tato Ibarra MD Neutrophil (Seg) 74 % High 36-65 [facility] Comment on above: Performed By: #### P TT, PT #### [address] [address] Policy Checker: Tato Ibarra MD Erythrocyte distribution width (RBC) [Ratio] 21.8 % High 11.8-14.4 [facility] Comment on above: Performed By: #### P TT, PT #### [address] [address] Policy Checker: Tato Ibarra MD Hematocrit (Bld) [Volume fraction] 25.5 % Low 36.3-47.1 [facility] Comment on above: Performed By: #### P TT, PT #### [address] [address] Policy Checker: Tato Ibarra MD Hemoglobin (Bld) [Mass/Vol] 8.6 g/dL Low 11.9-15.1 [facility] Comment on above: Performed By: #### P TT, PT #### [address] [address] Policy Checker: Tato Ibarra MD MCH (RBC) [Entitic mass] 31.6 pg Normal 25.2-33.5 [facility] Comment on above: Performed By: #### P TT, PT #### [address] [address] Policy Checker: Tato Ibarra MD MCHC (RBC) [Mass/Vol] 33.7 g/dL Normal 28.4-34.8 [facility] Comment on above: Performed By: #### P TT, PT #### [address] [address] Policy Checker: Tato Ibarra MD MCV (RBC) [Entitic vol] 93.8 fL Normal 82.6-102.9 [facility] Comment on above: Performed By: #### P TT, PT #### [facility] [employer] [address] [place] [phone] Policy Checker: Tato Ibarra MD NRBC Automated 0.0 per 100 WBC Normal 0.0 [facility] Comment on above: Performed By: #### P TT, PT #### [facility] [employer] [address] [place] [phone] Policy Checker: Tato Ibarra MD Platelet mean volume (Bld) [Entitic vol] 9.7 fL Normal 8.1-13.5 [facility] Comment on above: Performed By: #### P TT, PT #### [facility] [employer] [address] [place] [phone] Policy Checker: Tato Ibarra MD Platelets (Bld) [#/Vol] 220 10*3/uL Normal 138-453 [facility] Comment on above: Performed By: #### P TT, PT #### [address] [address] Policy Checker: Tato Ibarra MD RBC (Bld) [#/Vol] 2.72 10*6/uL Low 3.95-5.11 [facility] Comment on above: Performed By: #### P TT, PT #### [address] [address] Policy Checker: Tato Ibarra MD WBC (Bld) [#/Vol] 7.3 10*3/uL Normal 3.5-11.3 [facility] Comment on above: Performed By: #### P TT, PT #### [facility] [employer] [address] [place] [phone] Policy Checker: Tato Ibarra MD EKG 12 Leadon 01-03-2024 Atrial Rate 94 BPM [facility] [place] 14 degrees [facility] Bubbles P-R Interval 162 ms [facility] Bubbles Q-T Interval 350 ms [facility] Bubbles QRS Duration 86 ms [facility] QTc Calculation (Bazett) 437 ms [facility] R [place] 25 degrees [facility] T [place] -97 degrees [facility] Ventricular Rate 94 BPM [facility] Normal sinus rhythm T wave abnormality, consider anterior ischemia Abnormal ECG When compared with ECG of 01-JAN-2024 18:15, No significant change was found [facility] Omar Bush MD - 01/03/2024 Normal sinus rhythm T wave abnormality, consider anterior ischemia Abnormal ECG When compared with ECG of 01-JAN-2024 18:15, No significant change was found [facility] Hemoglobin and Hematocriton 01-03-2024 Hematocrit (Bld) [Volume fraction] 28.3 % Low 36.3 - 47.1 % [facility] Hemoglobin (Bld) [Mass/Vol] 9.3 g/dL Low 11.9 - 15.1 g/dL [facility] Interpretation and review of laboratory results Abnormal [facility] Hematocrit (Bld) [Volume fraction] 27.3 % Low 36.3 - 47.1 % [facility] Hemoglobin (Bld) [Mass/Vol] 9.1 g/dL Low 11.9 - 15.1 g/dL [facility] Interpretation and review of laboratory results Abnormal [facility] Hgb/[place] 01-03-2024 Hematocrit (Bld) [Volume fraction] 28.3 % Low 36.3-47.1 [facility] Comment on above: Performed By: #### O SMO, LD, MG, JESUS, TSHX, LIVP, B12FOL, LACTIC, FT4, BMP #### [facility] [employer] [facility] [place] [address] Policy Checker: Tato Ibarra MD Hemoglobin (Bld) [Mass/Vol] 9.3 g/dL Low 11.9-15.1 [facility] Comment on above: Performed By: #### O SMO, LD, MG, JESUS, TSHX, LIVP, B12FOL, LACTIC, FT4, BMP #### [facility] [address] [place] [id number] Policy Checker: Tato Ibarra MD Hematocrit (Bld) [Volume fraction] 27.3 % Low 36.3-47.1 [facility] Comment on above: Performed By: #### P TT, PT #### [facility] [address] [place] [phone] Policy Checker: Tato Ibarra MD Hemoglobin (Bld) [Mass/Vol] 9.1 g/dL Low 11.9-15.1 [facility] Comment on above: Performed By: #### P TT, PT #### [facility] [employer] [address] [place] [address] [phone] Policy Checker: Tato Ibarra MD K (Potassium)on 01-03-2024 Potassium [Moles/Vol] 3.1 mmol/L Low 3.7-5.3 [facility] Comment on above: Performed By: #### O SMO, LD, MG, JESUS, TSHX, LIVP, B12FOL, LACTIC, FT4, BMP #### [facility] [address] [place] [address] [phone] Policy Checker: Tato Ibarra MD Magnesiumon 01-03-2024 Magnesium [Mass/Vol] 1.8 mg/dL 1.6 - 2.6 mg/dL [facility] Magnesium [Mass/Vol] 1.8 mg/dL Normal 1.6-2.6 [facility] Comment on above: Performed By: #### P TT, PT #### [facility] [address] [place] [address] [phone] Policy Checker: Tato Ibarra MD Potassiumon 01-03-2024 Interpretation and review of laboratory results Abnormal [facility] Potassium [Moles/Vol] 3.1 mmol/L Low 3.7 - 5.3 mmol/L [facility] Basic Metab w/rfx MGon 01-01 Anion gap [Moles/Vol] 9 mmol/L Normal 9-16 [facility] Comment on above: Performed By: #### O SMO, LD, MG, JESUS, TSHX, LIVP, B12FOL, LACTIC, FT4, BMP #### [address] [phone] Policy Checker: Tato Ibarra MD Calcium [Mass/Vol] 7.8 mg/dL Low 8.6-10.4 [facility] Comment on above: Performed By: #### O SMO, LD, MG, JESUS, TSHX, LIVP, B12FOL, LACTIC, FT4, BMP #### [address] [phone] Policy Checker: Tato Ibarra MD Chloride [Moles/Vol] 110 mmol/L High 98-107 [facility] Comment on above: Performed By: #### O SMO, LD, MG, JESUS, TSHX, LIVP, B12FOL, LACTIC, FT4, BMP #### [address] [address] Policy Checker: Tato Ibarra MD CO2 [Moles/Vol] 22 mmol/L Normal 20-31 [facility] Comment on above: Performed By: #### O SMO, LD, MG, JESUS, TSHX, LIVP, B12FOL, LACTIC, FT4, BMP #### [facility] [employer] [address] [place] [phone] Policy Checker: Tato Ibarra MD Creatinine [Mass/Vol] 0.3 mg/dL Low 0.50-0.90 [facility] Comment on above: Performed By: #### O SMO, LD, MG, JESUS, TSHX, LIVP, B12FOL, LACTIC, FT4, BMP #### [address] [address] Policy Checker: Tato Ibarra MD GFR/1.73 sq M.predicted among [...] TSHX, LIVP, B12FOL, LACTIC, FT4, BMP #### [address] [phone] Policy Checker: Tato Ibarra MD Glucose [Mass/Vol] 105 mg/dL High 74-99 [facility] Comment on above: Performed By: #### O SMO, LD, MG, JESUS, TSHX, LIVP, B12FOL, LACTIC, FT4, BMP #### [facility] [employer] [address] [place] [phone] Policy Checker: Tato Ibarra MD Potassium [Moles/Vol] 3.0 mmol/L Low 3.7-5.3 [facility] Comment on above: Performed By: #### O SMO, LD, MG, JESUS, TSHX, LIVP, B12FOL, LACTIC, FT4, BMP #### [facility] [employer] [address] [place] [phone] Policy Checker: Tato Ibarra MD Sodium [Moles/Vol] 141 mmol/L Normal 136-145 [facility] Comment on above: Performed By: #### O SMO, LD, MG, JESUS, TSHX, LIVP, B12FOL, LACTIC, FT4, BMP #### [facility] [employer] [address] [place] [phone] Policy Checker: Tato Ibarra MD Urea nitrogen [Mass/Vol] 8 mg/dL Normal 6-20 [facility] Comment on above: Performed By: #### O SMO, LD, MG, JESUS, TSHX, LIVP, B12FOL, LACTIC, FT4, BMP #### [facility] [address] [place] [address] Policy Checker: Tato Ibarra MD Basic Metabolic Panel w/ Ref jacinto to MGon 01-02-2024 Anion gap [Moles/Vol] 9 mmol/L 9 - 16 mmol/L [facility] Calcium [Mass/Vol] 7.8 mg/dL Low 8.6 - 10.4 mg/dL [facility] Chloride [Moles/Vol] 110 mmol/L High 98 - 107 mmol/L [facility] CO2 [Moles/Vol] 22 mmol/L 20 - 31 mmol/L [facility] Creatinine [Mass/Vol] 0.3 mg/dL Low 0.50 - 0.90 mg/dL [facility] Est, Glom Filt Rate - [facility] Comment on above: These results are not [...] 105 mg/dL High 74 - 99 mg/dL [facility] Interpretation and review of laboratory results Abnormal [facility] Potassium [Moles/Vol] 3.0 mmol/L Low 3.7 - 5.3 mmol/L [facility] Sodium [Moles/Vol] 141 mmol/L 136 - 145 mmol/L [facility] Urea nitrogen [Mass/Vol] 8 mg/dL 6 - 20 mg/dL [facility] CBC with Auto Differentialon 01-02-2024 Basophils (Bld) [#/Vol] 0.00 10*3/uL [facility] Erythrocyte distribution width (RBC) [Ratio] 23.0 % High 11.8 - 14.4 % [facility] Hematocrit (Bld) [Volume fraction] 24.8 % Low 36.3 - 47.1 % [facility] Hemoglobin (Bld) [Mass/Vol] 8.4 g/dL Low 11.9 - 15.1 g/dL [facility] Immature granulocytes (Bld) [#/Vol] 0.00 10*3/uL [facility] Interpretation and review of laboratory results Abnormal [facility] Lymphocytes/100 WBC (Bld) 1.50 % [facility] MCH (RBC) [Entitic mass] 31.1 pg 25.2 - 33.5 pg [facility] MCHC (RBC) [Mass/Vol] 33.9 g/dL 28.4 - 34.8 g/dL [facility] MCV (RBC) [Entitic vol] 91.9 fL 82.6 - 102.9 fL [facility] Monocytes/100 WBC (Bld) 0.82 % [facility] Morphology Ritesh (Bld) [Interp] HYPOCHROMIA PRESENT [facility] Neutrophils/100 WBC (Bld) 66 % High 36 - 65 % [facility] Nucleated RBC/100 WBC (Bld) [Ratio] 0.0 % 0.0 per 100 WBC [facility] Platelet mean volume (Bld) [Entitic vol] 9.3 fL 8.1 - 13.5 fL [facility] Platelets (Bld) [#/Vol] 207 10*3/uL [facility] RBC (Bld) [#/Vol] 2.70 10*6/uL Low 3.95 - 5.11 m/uL [facility] Segmented neutrophils/100 WBC (Bld) 4.48 % [facility] WBC other (Bld) [#/Vol] 6.8 [facility] Basophils (Bld) [#/Vol] 0.00 10*3/uL [facility] Basophils/100 WBC (Bld) 0 % 0 - 2 % [facility] Eosinophils (Bld) [#/Vol] 0.00 10*3/uL [facility] Eosinophils/100 WBC (Bld) 0 % Low 1 - 4 % [facility] Erythrocyte distribution width (RBC) [Ratio] 22.9 % High 11.8 - 14.4 % [facility] Hematocrit (Bld) [Volume fraction] 25.7 % Low 36.3 - 47.1 % [facility] Hemoglobin (Bld) [Mass/Vol] 8.8 g/dL Low 11.9 - 15.1 g/dL [facility] Immature granulocytes (Bld) [#/Vol] 0.00 10*3/uL [facility] Immature granulocytes/100 WBC (Bld) 0 % 0 [facility] Interpretation and review of laboratory results Abnormal [facility] Lymphocytes/100 WBC (Bld) 22 % Low 24 - 43 % [facility] Lymphocytes/100 WBC (Bld) 1.52 % [facility] MCH (RBC) [Entitic mass] 31.5 pg 25.2 - 33.5 pg [facility] MCHC (RBC) [Mass/Vol] 34.2 g/dL 28.4 - 34.8 g/dL [facility] MCV (RBC) [Entitic vol] 92.1 fL 82.6 - 102.9 fL [facility] Monocytes/100 WBC (Bld) 9 % 3 - 12 % [facility] Monocytes/100 WBC (Bld) 0.62 % [facility] Morphology Ritesh (Bld) [Interp] ANISOCYTOSIS PRESENT [facility] Morphology Ritesh (Bld) [Interp] HYPOCHROMIA PRESENT [facility] Neutrophils/100 WBC (Bld) 69 % High 36 - 65 % [facility] Nucleated RBC/100 WBC (Bld) [Ratio] 0.0 % 0.0 per 100 WBC [facility] Platelet mean volume (Bld) [Entitic vol] 9.2 fL 8.1 - 13.5 fL [facility] Platelets (Bld) [#/Vol] 215 10*3/uL [facility] RBC (Bld) [#/Vol] 2.79 10*6/uL Low 3.95 - 5.11 m/uL [facility] Segmented neutrophils/100 WBC (Bld) 4.76 % [facility] WBC other (Bld) [#/Vol] 6.9 [facility] CBC with Diffon 01-02-2024 Basophils/100 WBC (Bld) 0 % Normal 0-2 [facility] Comment on above: Performed By: #### O SMO, LD, MG, JESUS, TSHX, LIVP, B12FOL, LACTIC, FT4, BMP #### [place] [address] Policy Checker: Tato Ibarra MD Eosinophils (Bld) [#/Vol] 0.00 10*3/uL Normal 0.00-0.44 [facility] Comment on above: Performed By: #### O SMO, LD, MG, JESUS, TSHX, LIVP, B12FOL, LACTIC, FT4, BMP #### [facility] [address] [place] [address] Policy Checker: Tato Ibarra MD Eosinophils/100 WBC (Bld) 0 % Low 1-4 [facility] Comment on above: Performed By: #### O SMO, LD, MG, JESUS, TSHX, LIVP, B12FOL, LACTIC, FT4, BMP #### [facility] [address] [place] [address] Policy Checker: Tato Ibarra MD Immature granulocytes/100 WBC (Bld) 0 % Normal 0 [facility] Comment on above: Performed By: #### O SMO, LD, MG, JESUS, TSHX, LIVP, B12FOL, LACTIC, FT4, BMP #### [facility] [address] [place] [address] Policy Checker: Tato Ibarra MD Lymphocytes/100 WBC (Bld) 22 % Low 24-43 [facility] Comment on above: Performed By: #### O SMO, LD, MG, JESUS, TSHX, LIVP, B12FOL, LACTIC, FT4, BMP #### [address] [address] Policy Checker: Tato Ibarra MD Monocytes/100 WBC (Bld) 12 % Normal 3-12 [facility] Comment on above: Performed By: #### O SMO, LD, MG, JESUS, TSHX, LIVP, B12FOL, LACTIC, FT4, BMP #### [address] [address] Policy Checker: Tato Ibarra MD Morphology Ritesh (Bld) [Interp] ANISOCYTOSIS PRESENT Normal [facility] Comment on above: Result Comment: HYPO CHROMIA PRESENT Performed By: #### O SMO, LD, MG, JESUS, TSHX, LIVP, B12FOL, LACTIC, FT4, BMP #### [place] [address] Policy Checker: Tato Ibarra MD Abs. Basophil 0.00 k/uL Normal 0.00-0.20 [facility] Comment on above: Performed By: #### O SMO, LD, MG, JESUS, TSHX, LIVP, B12FOL, LACTIC, FT4, BMP #### [facility] [employer] [address] [place] [phone] Policy Checker: Tato Ibarra MD Abs.Imm.Granulocyte 0.00 k/uL Normal 0.00-0.30 [facility] Comment on above: Performed By: #### O SMO, LD, MG, JESUS, TSHX, LIVP, B12FOL, LACTIC, FT4, BMP #### [facility] [employer] [address] [place] [phone] Policy Checker: Tato Ibarra MD Abs.Neutrophil (Seg) 4.48 k/uL Normal 1.50-8.10 [facility] Comment on above: Performed By: #### O SMO, LD, MG, JESUS, TSHX, LIVP, B12FOL, LACTIC, FT4, BMP #### [address] [address] Policy Checker: Tato Ibarra MD Lymphocytes (Bld) [#/Vol] 1.50 10*3/uL Normal 1.10-3.70 [facility] Comment on above: Performed By: #### O SMO, LD, MG, JESUS, TSHX, LIVP, B12FOL, LACTIC, FT4, BMP #### [address] [address] Policy Checker: Tato Ibarra MD Monocytes (Bld) [#/Vol] 0.82 10*3/uL Normal 0.10-1.20 [facility] Comment on above: Performed By: #### O SMO, LD, MG, JESUS, TSHX, LIVP, B12FOL, LACTIC, FT4, BMP #### [address] [address] Policy Checker: Tato Ibarra MD Neutrophil (Seg) 66 % High 36-65 [facility] Comment on above: Performed By: #### O SMO, LD, MG, JESUS, TSHX, LIVP, B12FOL, LACTIC, FT4, BMP #### [address] [address] Policy Checker: Tato Ibarra MD Erythrocyte distribution width (RBC) [Ratio] 23.0 % High 11.8-14.4 [facility] Comment on above: Performed By: #### O SMO, LD, MG, JESUS, TSHX, LIVP, B12FOL, LACTIC, FT4, BMP #### [address] [address] Policy Checker: Tato Ibarra MD Hematocrit (Bld) [Volume fraction] 24.8 % Low 36.3-47.1 [facility] Comment on above: Performed By: #### O SMO, LD, MG, JESUS, TSHX, LIVP, B12FOL, LACTIC, FT4, BMP #### [address] [phone] Policy Checker: Tato Ibarra MD Hemoglobin (Bld) [Mass/Vol] 8.4 g/dL Low 11.9-15.1 [facility] Comment on above: Performed By: #### O SMO, LD, MG, JESUS, TSHX, LIVP, B12FOL, LACTIC, FT4, BMP #### [address] [phone] Policy Checker: Tato Ibarra MD MCH (RBC) [Entitic mass] 31.1 pg Normal 25.2-33.5 [facility] Comment on above: Performed By: #### O SMO, LD, MG, JESUS, TSHX, LIVP, B12FOL, LACTIC, FT4, BMP #### [address] [phone] Policy Checker: Tato Ibarra MD MCHC (RBC) [Mass/Vol] 33.9 g/dL Normal 28.4-34.8 [facility] Comment on above: Performed By: #### O SMO, LD, MG, JESUS, TSHX, LIVP, B12FOL, LACTIC, FT4, BMP #### [address] [phone] Policy Checker: Tato Ibarra MD MCV (RBC) [Entitic vol] 91.9 fL Normal 82.6-102.9 [facility] Comment on above: Performed By: #### O SMO, LD, MG, JESUS, TSHX, LIVP, B12FOL, LACTIC, FT4, BMP #### [address] [phone] Policy Checker: Tato Ibarra MD NRBC Automated 0.0 per 100 WBC Normal 0.0 [facility] Comment on above: Performed By: #### O SMO, LD, MG, JESUS, TSHX, LIVP, B12FOL, LACTIC, FT4, BMP #### [address] [address] Policy Checker: Tato Ibarra MD Platelet mean volume (Bld) [Entitic vol] 9.3 fL Normal 8.1-13.5 [facility] Comment on above: Performed By: #### O SMO, LD, MG, JESUS, TSHX, LIVP, B12FOL, LACTIC, FT4, BMP #### [address] [address] Policy Checker: Tato Ibarra MD Platelets (Bld) [#/Vol] 207 10*3/uL Normal 138-453 [facility] Comment on above: Performed By: #### O SMO, LD, MG, JESUS, TSHX, LIVP, B12FOL, LACTIC, FT4, BMP #### [address] [phone] Policy Checker: Tato Ibarra MD RBC (Bld) [#/Vol] 2.70 10*6/uL Low 3.95-5.11 [facility] Comment on above: Performed By: #### O SMO, LD, MG, JESUS, TSHX, LIVP, B12FOL, LACTIC, FT4, BMP #### [address] [address] Policy Checker: Tato Ibarra MD WBC (Bld) [#/Vol] 6.8 10*3/uL Normal 3.5-11.3 [facility] Comment on above: Performed By: #### O SMO, LD, MG, JESUS, TSHX, LIVP, B12FOL, LACTIC, FT4, BMP #### [address] [address] Policy Checker: Tato Ibarra MD Abs. Basophil 0.00 k/uL Normal 0.00-0.20 [facility] Comment on above: Performed By: #### O SMO, LD, MG, JESUS, TSHX, LIVP, B12FOL, LACTIC, FT4, BMP #### [place] [address] Policy Checker: Tato Ibarra MD Abs.Imm.Granulocyte 0.00 k/uL Normal 0.00-0.30 [facility] Comment on above: Performed By: #### O SMO, LD, MG, JESUS, TSHX, LIVP, B12FOL, LACTIC, FT4, BMP #### [place] [address] Policy Checker: Tato Ibarra MD Abs.Neutrophil (Seg) 4.76 k/uL Normal 1.50-8.10 [facility] Comment on above: Performed By: #### O SMO, LD, MG, JESUS, TSHX, LIVP, B12FOL, LACTIC, FT4, BMP #### [place] [address] Policy Checker: Tato Ibarra MD Basophils/100 WBC (Bld) 0 % Normal 0-2 [facility] Comment on above: Performed By: #### O SMO, LD, MG, JESUS, TSHX, LIVP, B12FOL, LACTIC, FT4, BMP #### [place] [address] Policy Checker: Tato Ibarra MD Eosinophils (Bld) [#/Vol] 0.00 10*3/uL Normal 0.00-0.44 [facility] Comment on above: Performed By: #### O SMO, LD, MG, JESUS, TSHX, LIVP, B12FOL, LACTIC, FT4, BMP #### [facility] [employer] [address] [place] [phone] Policy Checker: Tato Ibarra MD Eosinophils/100 WBC (Bld) 0 % Low 1-4 [facility] Comment on above: Performed By: #### O SMO, LD, MG, JESUS, TSHX, LIVP, B12FOL, LACTIC, FT4, BMP #### [address] [address] Policy Checker: Tato Ibarra MD Immature granulocytes/100 WBC (Bld) 0 % Normal 0 [facility] Comment on above: Performed By: #### O SMO, LD, MG, JESUS, TSHX, LIVP, B12FOL, LACTIC, FT4, BMP #### [address] [phone] Policy Checker: Tato Ibarra MD Lymphocytes (Bld) [#/Vol] 1.52 10*3/uL Normal 1.10-3.70 [facility] Comment on above: Performed By: #### O SMO, LD, MG, JESUS, TSHX, LIVP, B12FOL, LACTIC, FT4, BMP #### [address] [address] Policy Checker: Tato Ibarra MD Lymphocytes/100 WBC (Bld) 22 % Low 24-43 [facility] Comment on above: Performed By: #### O SMO, LD, MG, JESUS, TSHX, LIVP, B12FOL, LACTIC, FT4, BMP #### [address] [address] Policy Checker: Tato Ibarra MD Monocytes (Bld) [#/Vol] 0.62 10*3/uL Normal 0.10-1.20 [facility] Comment on above: Performed By: #### O SMO, LD, MG, JESUS, TSHX, LIVP, B12FOL, LACTIC, FT4, BMP #### [address] [address] Policy Checker: Tato Ibarra MD Monocytes/100 WBC (Bld) 9 % Normal 3-12 [facility] Comment on above: Performed By: #### O SMO, LD, MG, JESUS, TSHX, LIVP, B12FOL, LACTIC, FT4, BMP #### [address] [address] Policy Checker: Tato Ibarra MD Morphology Ritesh (Bld) [Interp] ANISOCYTOSIS PRESENT Normal [facility] Comment on above: Result Comment: HYPO CHROMIA PRESENT Performed By: #### O SMO, LD, MG, JESUS, TSHX, LIVP, B12FOL, LACTIC, FT4, BMP #### [address] [address] Policy Checker: Tato Ibarra MD Neutrophil (Seg) 69 % High 36-65 [facility] Comment on above: Performed By: #### O SMO, LD, MG, JESUS, TSHX, LIVP, B12FOL, LACTIC, FT4, BMP #### [address] [address] Policy Checker: Tato Ibarra MD Erythrocyte distribution width (RBC) [Ratio] 22.9 % High 11.8-14.4 [facility] Comment on above: Performed By: #### O SMO, LD, MG, JESUS, TSHX, LIVP, B12FOL, LACTIC, FT4, BMP #### [facility] [employer] [address] [place] [address] Policy Checker: Tato Ibarra MD Hematocrit (Bld) [Volume fraction] 25.7 % Low 36.3-47.1 [facility] Comment on above: Performed By: #### O SMO, LD, MG, JESUS, TSHX, LIVP, B12FOL, LACTIC, FT4, BMP #### [facility] [employer] [address] [place] [phone] Policy Checker: Tato Ibarra MD Hemoglobin (Bld) [Mass/Vol] 8.8 g/dL Low 11.9-15.1 [facility] Comment on above: Performed By: #### O SMO, LD, MG, JESUS, TSHX, LIVP, B12FOL, LACTIC, FT4, BMP #### [address] [phone] Policy Checker: Tato Ibarra MD MCH (RBC) [Entitic mass] 31.5 pg Normal 25.2-33.5 [facility] Comment on above: Performed By: #### O SMO, LD, MG, JESUS, TSHX, LIVP, B12FOL, LACTIC, FT4, BMP #### [address] [phone] Policy Checker: Tato Ibarra MD MCHC (RBC) [Mass/Vol] 34.2 g/dL Normal 28.4-34.8 [facility] Comment on above: Performed By: #### O SMO, LD, MG, JESUS, TSHX, LIVP, B12FOL, LACTIC, FT4, BMP #### [address] [phone] Policy Checker: Tato Ibarra MD MCV (RBC) [Entitic vol] 92.1 fL Normal 82.6-102.9 [facility] Comment on above: Performed By: #### O SMO, LD, MG, JESUS, TSHX, LIVP, B12FOL, LACTIC, FT4, BMP #### [address] [phone] Policy Checker: Tato Ibarra MD NRBC Automated 0.0 per 100 WBC Normal 0.0 [facility] Comment on above: Performed By: #### O SMO, LD, MG, JESUS, TSHX, LIVP, B12FOL, LACTIC, FT4, BMP #### [address] [phone] Policy Checker: Tato Ibarra MD Platelet mean volume (Bld) [Entitic vol] 9.2 fL Normal 8.1-13.5 [facility] Comment on above: Performed By: #### O SMO, LD, MG, JESUS, TSHX, LIVP, B12FOL, LACTIC, FT4, BMP #### [facility] [employer] [address] [place] [phone] Policy Checker: Tato Ibarra MD Platelets (Bld) [#/Vol] 215 10*3/uL Normal 138-453 [facility] Comment on above: Performed By: #### O SMO, LD, MG, JESUS, TSHX, LIVP, B12FOL, LACTIC, FT4, BMP #### [facility] [address] [place] [address] Policy Checker: Tato Ibarra MD RBC (Bld) [#/Vol] 2.79 10*6/uL Low 3.95-5.11 [facility] Comment on above: Performed By: #### O SMO, LD, MG, JESUS, TSHX, LIVP, B12FOL, LACTIC, FT4, BMP #### [facility] [employer] [address] [place] [address] [phone] Policy Checker: Tato Ibarra MD WBC (Bld) [#/Vol] 6.9 10*3/uL Normal 3.5-11.3 [facility] Comment on above: Performed By: #### O SMO, LD, MG, JESUS, TSHX, LIVP, B12FOL, LACTIC, FT4, BMP #### [address] [phone] Policy Checker: Tato Ibarra MD CT[facility]VIS [facility] CTA ABDOMEN PELVIS W WO CONTRAST [...] Final result Normal [facility] CTA Abdominal vessels and Pe lvis vessels [...] L5-S1, L1-L2, and on either side T11. [facility] RIS CONSOLIDATED EXAMINATION: CTA OF THE ABDOMEN [...] L5-S1, L1-L2, and on either side T11. [facility] RIS CONSOLIDATED Nasir Martinez MD - [...] L5-S1, L1-L2, and on either side T11. [facility] [employer] CTA Abdominal vessels and Pe lvis vessels WO and W contrast IVOrdered By: Nasir Martinez on 01-02-2024 [facility] [employer] Work Phone: Comp Metabolic Pr/rfx MGon 0 01-02-2024 Albumin [Mass/Vol] 2.7 g/dL Low 3.5-5.2 [facility] Comment on above: Performed By: #### O SMO, LD, MG, JESUS, TSHX, LIVP, B12FOL, LACTIC, FT4, BMP #### [facility] [address] [place] [address] [phone] Policy Checker: Tato Ibarra MD Albumin/Glob Ratio 2.0 Normal 1.0-2.5 [facility] Comment on above: Performed By: #### O SMO, LD, MG, JESUS, TSHX, LIVP, B12FOL, LACTIC, FT4, BMP #### [facility] [address] [place], [place] [phone] Policy Checker: Tato Ibarra MD Alkaline Phos 124 U/L High 35-104 [facility] Comment on above: Performed By: #### O SMO, LD, MG, JESUS, TSHX, LIVP, B12FOL, LACTIC, FT4, BMP #### [facility] [address] [place] [address] [phone] Policy Checker: Tato Ibarra MD ALT [Catalytic activity/Vol] 13 U/L Normal -35 [facility] Comment on above: Performed By: #### O SMO, LD, MG, JESUS, TSHX, LIVP, B12FOL, LACTIC, FT4, BMP #### [address] [id number] Policy Checker: Tato Ibarra MD Anion gap [Moles/Vol] 12 mmol/L Normal 9-16 [facility] Comment on above: Performed By: #### O SMO, LD, MG, JESUS, TSHX, LIVP, B12FOL, LACTIC, FT4, BMP #### [address] [phone] Policy Checker: Tato Ibarra MD AST [Catalytic activity/Vol] 42 U/L High -35 [facility] Comment on above: Performed By: #### O SMO, LD, MG, JESUS, TSHX, LIVP, B12FOL, LACTIC, FT4, BMP #### [address] [phone] Policy Checker: Tato Ibarra MD Bilirubin [Mass/Vol] 0.8 mg/dL Normal 0.00-1.20 [facility] Comment on above: Performed By: #### O SMO, LD, MG, JESUS, TSHX, LIVP, B12FOL, LACTIC, FT4, BMP #### [facility] [address] [place] [id number] Policy Checker: Tato Ibarra MD Calcium [Mass/Vol] 7.8 mg/dL Low 8.6-10.4 [facility] Comment on above: Performed By: #### O SMO, LD, MG, JESUS, TSHX, LIVP, B12FOL, LACTIC, FT4, BMP #### [facility] [address] [place] [address] [phone] Policy Checker: Tato Ibarra MD Chloride [Moles/Vol] 106 mmol/L Normal 98-107 [facility] Comment on above: Performed By: #### O SMO, LD, MG, JESUS, TSHX, LIVP, B12FOL, LACTIC, FT4, BMP #### [facility] [address] [place] [address] [phone] Policy Checker: Tato Ibarra MD CO2 [Moles/Vol] 19 mmol/L Low 20-31 [facility] Comment on above: Performed By: #### O SMO, LD, MG, JESUS, TSHX, LIVP, B12FOL, LACTIC, FT4, BMP #### [address] [phone] Policy Checker: Tato Ibarra MD Creatinine [Mass/Vol] 0.3 mg/dL Low 0.50-0.90 [facility] Comment on above: Performed By: #### O SMO, LD, MG, JESUS, TSHX, LIVP, B12FOL, LACTIC, FT4, BMP #### [address] [phone] Policy Checker: Tato Ibarra MD GFR/1.73 sq M.predicted among [...] TSHX, LIVP, B12FOL, LACTIC, FT4, BMP #### [address] [phone] Policy Checker: Tato Ibarra MD Glucose [Mass/Vol] 104 mg/dL High 74-99 [facility] Comment on above: Performed By: #### O SMO, LD, MG, JESUS, TSHX, LIVP, B12FOL, LACTIC, FT4, BMP #### [facility] [address] [place] [phone] Policy Checker: Tato Ibarra MD Potassium [Moles/Vol] 3.9 mmol/L Normal 3.7-5.3 [facility] Comment on above: Performed By: #### O SMO, LD, MG, JESUS, TSHX, LIVP, B12FOL, LACTIC, FT4, BMP #### [address] [address] Policy Checker: Tato Ibarra MD Protein [Mass/Vol] 4.5 g/dL Low 6.6-8.7 [facility] Comment on above: Performed By: #### O SMO, LD, MG, JESUS, TSHX, LIVP, B12FOL, LACTIC, FT4, BMP #### [facility] [employer] [address] [place] [phone] Policy Checker: Tato Ibarra MD Sodium [Moles/Vol] 137 mmol/L Normal 136-145 [facility] Comment on above: Performed By: #### O SMO, LD, MG, JESUS, TSHX, LIVP, B12FOL, LACTIC, FT4, BMP #### [facility] [employer] [address] [place] [phone] Policy Checker: Tato Ibarra MD Urea nitrogen [Mass/Vol] 8 mg/dL Normal 6-20 [facility] Comment on above: Performed By: #### O SMO, LD, MG, JESUS, TSHX, LIVP, B12FOL, LACTIC, FT4, BMP #### [facility] [employer] [address] [place] [phone] Policy Checker: Tato Ibarra MD Comprehensive Metabolic Pane l w/ Reflex to MGon 01-02-2024 Albumin [Mass/Vol] 2.7 g/dL Low 3.5 - 5.2 g/dL [facility] Albumin/Globulin [Mass ratio] 2.0 {ratio} 1.0 - 2.5 [facility] ALP [Catalytic activity/Vol] 124 U/L High 35 - 104 U/L [facility] ALT [Catalytic activity/Vol] 13 U/L 10 - 35 U/L [facility] Anion gap [Moles/Vol] 12 mmol/L 9 - 16 mmol/L [facility] AST [Catalytic activity/Vol] 42 U/L High 10 - 35 U/L [facility] Bilirubin [Mass/Vol] 0.8 mg/dL 0.00 - 1.20 mg/ dL [facility] Calcium [Mass/Vol] 7.8 mg/dL Low 8.6 - 10.4 mg/dL [facility] Chloride [Moles/Vol] 106 mmol/L 98 - 107 mmol/L [facility] CO2 [Moles/Vol] 19 mmol/L Low 20 - 31 mmol/L [facility] Creatinine [Mass/Vol] 0.3 mg/dL Low 0.50 - 0.90 mg/dL [facility] Otis Maciel Rate - PINF [facility] Comment on above: These results are not [...] 104 mg/dL High 74 - 99 mg/dL [facility] Interpretation and review of laboratory results Abnormal [facility] Potassium [Moles/Vol] 3.9 mmol/L 3.7 - 5.3 mmol/L [facility] Protein [Mass/Vol] 4.5 g/dL Low 6.6 - 8.7 g/dL [facility] Sodium [Moles/Vol] 137 mmol/L 136 - 145 mmol/L [facility] Urea nitrogen [Mass/Vol] 8 mg/dL 6 - 20 mg/dL [facility] EKG 12 LeadOrdered By: Noé Godinez on 01-02-2024 Atrial Rate 103 BPM [facility] Work Phone: P [place] 9 degrees [facility] Work Phone: P-R Interval 156 ms [employer] Work Phone: Q-T Interval 358 ms [facility] Work Phone: QRS Duration 82 ms [facility] Work Phone: QTc Calculation (Bazett) 468 ms [facility] Work Phone: R [place] 26 degrees [facility] Work Phone: T [place] 170 degrees [facility] Work Phone: Ventricular Rate 103 BPM [employer] Work Phone: [facility] Work Phone: EKG 12 Leadon 01-02-2024 Sinus tachycardia T wave abnormality, consider anterior ischemia Abnormal ECG When compared with ECG of 31-DEC-2023 16:01, No significant change was found [facility] Noé Prescott MD - 01/02/2024 Sinus tachycardia T wave abnormality, consider anterior ischemia Abnormal ECG When compared with ECG of 31-DEC-2023 16:01, No significant change was found [facility] Glucose,Whole Bloodon 2023 Glucose [Mass/Vol] 93 mg/dL Normal 65-105 [facility] Hemoglobin and Hematocriton 01-02-2024 Hematocrit (Bld) [Volume fraction] 26.3 % Low 36.3 - 47.1 % [facility] [employer] Hemoglobin (Bld) [Mass/Vol] 9.1 g/dL Low 11.9 - 15.1 g/dL [facility] Interpretation and review of laboratory results Abnormal [facility] Hematocrit (Bld) [Volume fraction] 25.2 % Low 36.3 - 47.1 % [facility] Hemoglobin (Bld) [Mass/Vol] 8.5 g/dL Low 11.9 - 15.1 g/dL [facility] Interpretation and review of laboratory results Abnormal [facility] Hematocrit (Bld) [Volume fraction] 25.0 % Low 36.3 - 47.1 % [facility] Hemoglobin (Bld) [Mass/Vol] 8.6 g/dL Low 11.9 - 15.1 g/dL [facility] Interpretation and review of laboratory results Abnormal [facility] Hgb/Hcton 01-02-2024 Hematocrit (Bld) [Volume fraction] 26.3 % Low 36.3-47.1 [facility] Comment on above: Performed By: #### P TT, PT #### [facility] [address] [place] [address] Policy Checker: Tato Ibarra MD Hemoglobin (Bld) [Mass/Vol] 9.1 g/dL Low 11.9-15.1 [facility] Comment on above: Performed By: #### P TT, PT #### [facility] [address] [place], [place] [phone] Policy Checker: Tato Ibarra MD Hematocrit (Bld) [Volume fraction] 25.2 % Low 36.3-47.1 [facility] Comment on above: Performed By: #### O SMO, LD, MG, JESUS, TSHX, LIVP, B12FOL, LACTIC, FT4, BMP #### [facility] [address] [place], [place] [phone] Policy Checker: Tato Ibarra MD Hemoglobin (Bld) [Mass/Vol] 8.5 g/dL Low 11.9-15.1 [facility] Comment on above: Performed By: #### O SMO, LD, MG, JESUS, TSHX, LIVP, B12FOL, LACTIC, FT4, BMP #### [facility] [address] [place], [place] [phone] Policy Checker: Tato Ibarra MD Hematocrit (Bld) [Volume fraction] 25.0 % Low 36.3-47.1 [facility] Comment on above: Performed By: #### P TT, PT #### [facility] [address] [place] [address] [phone] Policy Checker: Tato Ibarra MD Hemoglobin (Bld) [Mass/Vol] 8.6 g/dL Low 11.9-15.1 [facility] Comment on above: Performed By: #### P TT, PT #### [facility] [address] [place] [address] [phone] Policy Checker: Tato Ibarra MD IR EMBOLIZATION HEMORRHAGEon 01-02-2024 [...] angiography or nuclear medicine GI bleeding scan. [facility] RIS Nasir Hoyos MD - 01/02/2024 PROCEDURE: IR EMBOLIZATION VASCULAR [...] for a 0.035 inch wire and 5 Jordanian introducer sheath. A 5 Jordanian Bren catheter was then used to selectively catheterize the celiac artery and digital angiography was performed in AP and oblique projections. Subsequently, several different catheters were used to attempt selective catheterization of the left gastric artery, ultimately successful with a 5 Jordanian Cobra catheter. Digital angiography of the left [...] angiography or nuclear medicine GI bleeding scan. [facility] Lipaseon 01-02-2024 Lipase [Catalytic activity/Vol] 18 U/L 13 - 60 U/L [facility] Lipase [Catalytic activity/Vol] 18 U/L Normal 13-60 [facility] Comment on above: Performed By: #### O SMO, LD, MG, JESUS, TSHX, LIVP, B12FOL, LACTIC, FT4, BMP #### [facility] [employer] [facility] [place], [place] [phone] Policy Checker: Tato Ibarra MD MRSA DNA Probe, Nasalon MRSA, DNA, Nasal Negative NEGATIVE [facility] Comment on above: NEGATIVE: MRSA DNA n ot detected by nucleic acid amplification. Results should be used as an adjunct to nosocomial control efforts to identify patients needing enhanced precautions. The test is not intended to identify patients with staphylococcal infections. Results should not be used to guide or monitor treatment for MRSA infections. Specimen Description .NASAL SWAB [facility] MRSA, DNA, Nasalon MRSA, DNA, Nasal Negative Normal NEG [facility] Comment on above: Result Comment: NEGA [...] TSHX, LIVP, B12FOL, LACTIC, FT4, BMP #### [facility] [address] [place], [place] [phone] Policy Checker: Tato Ibarra MD Magnesiumon 01-02-2024 Magnesium [Mass/Vol] 1.9 mg/dL 1.6 - 2.6 mg/dL [facility] Magnesium [Mass/Vol] 1.9 mg/dL Normal 1.6-2.6 [facility] Comment on above: Performed By: #### O SMO, LD, MG, JESUS, TSHX, LIVP, B12FOL, LACTIC, FT4, BMP #### [facility] [address] [place], [place] [phone] Policy Checker: Tato Ibarra MD No Panel Informationon 01-01 Blood Bank Blood Product Expiration Date [id number] [facility] Blood Bank ISBT Product Blood Type 9500 [facility] Blood Bank Unit Type and Rh Negative [facility] Component Leukocyte Reduced Red Cell [facility] Crossmatch Result COMPATIBLE [facility] Dispense Status Blood Bank TRANSFUSED [facility] Product Code Blood Bank [id number] [facility] Transfusion Status OK TO TRANSFUSE B ON [facility] Unit Divison 0 [facility] POC Glucose Fingerstickon Glucose [Mass/Vol] 93 mg/dL 65 - 105 mg/dL [facility] TYPE AND SCREENon 01-02-2024 ABO/Rh Negative [facility] Arm Band Number [id number] [facility] Blood Bank Sample Expiration 01/03/2024,2359 [facility] Blood product unit ID (Dose) [#] [id number] [facility] Blood product unit ID (Dose) [#] [id number] [facility] Unit Issue Date/Time [facility] Unit Issue Date/Time [facility] Troponinon 01-02-2024 Troponin I.cardiac High sensitivity method [Mass/Vol] ng/L 0 - 14 ng/L [facility] Comment on above: High Sensitivity Tro ponin values cannot be compared with other Troponin methodologies. Troponin, High Sens <6 Normal 0-14 [facility] Comment on above: Result Comment: High Sensitivity Troponin values cannot be compared with other Troponin methodologies. Performed By: #### O SMO, LD, MG, JESUS, TSHX, LIVP, B12FOL, LACTIC, FT4, BMP #### [facility] [employer] [facility] [place] [address] Policy Checker: MD [place] Day 01-01-2024 aPTT Coag (Bld) [Time] 24.6 s [facility] Comment on above: IV Heparin Therapy Range: 66.0-92.0 sec aPTT Coag (Bld) [Time] 24.6 s Normal 23.0-36.5 [facility] Comment on above: Result Comment: IV Heparin Therapy Range: 66.0-92.0 sec Performed By: #### P TT, PT #### [address] [phone] Policy Checker: Tato Ibarra MD Basic Metab w/rfx MGon 12-31 Anion gap [Moles/Vol] 9 mmol/L Normal 9-16 [facility] Comment on above: Performed By: #### O SMO, LD, MG, JESUS, TSHX, LIVP, B12FOL, LACTIC, FT4, BMP #### [address] [address] Policy Checker: Tato Ibarra MD Calcium [Mass/Vol] 8.5 mg/dL Low 8.6-10.4 [facility] Comment on above: Performed By: #### O SMO, LD, MG, JESUS, TSHX, LIVP, B12FOL, LACTIC, FT4, BMP #### [place] [address] Policy Checker: Tato Ibarra MD Chloride [Moles/Vol] 107 mmol/L Normal 98-107 [facility] Comment on above: Performed By: #### O SMO, LD, MG, JESUS, TSHX, LIVP, B12FOL, LACTIC, FT4, BMP #### [address] [address] Policy Checker: Tato Ibarra MD CO2 [Moles/Vol] 23 mmol/L Normal 20-31 [facility] Comment on above: Performed By: #### O SMO, LD, MG, JESUS, TSHX, LIVP, B12FOL, LACTIC, FT4, BMP #### [address] [address] Policy Checker: Tato Ibarra MD Creatinine [Mass/Vol] 0.3 mg/dL Low 0.50-0.90 [facility] Comment on above: Performed By: #### O SMO, LD, MG, JESUS, TSHX, LIVP, B12FOL, LACTIC, FT4, BMP #### [address] [phone] Policy Checker: Tato Ibarra MD GFR/1.73 sq M.predicted among [...] TSHX, LIVP, B12FOL, LACTIC, FT4, BMP #### [address] [phone] Policy Checker: Tato Ibarra MD Glucose [Mass/Vol] 86 mg/dL Normal 74-99 [facility] Comment on above: Performed By: #### O SMO, LD, MG, JESUS, TSHX, LIVP, B12FOL, LACTIC, FT4, BMP #### [address] [phone] Policy Checker: Tato Ibarra MD Potassium [Moles/Vol] 3.3 mmol/L Low 3.7-5.3 [facility] Comment on above: Performed By: #### O SMO, LD, MG, JESUS, TSHX, LIVP, B12FOL, LACTIC, FT4, BMP #### [facility] [employer] [address] [place] [address] [phone] Policy Checker: Tato Ibarra MD Sodium [Moles/Vol] 139 mmol/L Normal 136-145 [facility] Comment on above: Performed By: #### O SMO, LD, MG, JESUS, TSHX, LIVP, B12FOL, LACTIC, FT4, BMP #### [facility] [address] [place] [address] Policy Checker: Tato Ibarra MD Urea nitrogen [Mass/Vol] mg/dL Low 6-20 [facility] Comment on above: Performed By: #### O SMO, LD, MG, JESUS, TSHX, LIVP, B12FOL, LACTIC, FT4, BMP #### [facility] [address] [place], [place] [phone] Policy Checker: Tato Ibarra MD Basic Metabolic Panel w/ Ref jacinto to MGon 01-01-2024 Anion gap [Moles/Vol] 9 mmol/L 9 - 16 mmol/L [facility] [employer] Calcium [Mass/Vol] 8.5 mg/dL Low 8.6 - 10.4 mg/dL [facility] [employer] Chloride [Moles/Vol] 107 mmol/L 98 - 107 mmol/L [facility] CO2 [Moles/Vol] 23 mmol/L 20 - 31 mmol/L [facility] [employer] Creatinine [Mass/Vol] 0.3 mg/dL Low 0.50 - 0.90 mg/dL [facility] [employer] Est, Glom Filt Rate - PINF [facility] [employer] [facility] Comment on above: These results are not [...] [Mass/Vol] 86 mg/dL 74 - 99 mg/dL [facility] [employer] Potassium [Moles/Vol] 3.3 mmol/L Low 3.7 - 5.3 mmol/L [facility] [employer] Sodium [Moles/Vol] 139 mmol/L 136 - 145 mmol/L [facility] Urea nitrogen [Mass/Vol] mg/dL Low 6 - 20 mg/dL [facility] [employer] CBC with Auto Differentialon 01-01-2024 Basophils (Bld) [#/Vol] 0.00 10*3/uL [facility] Basophils/100 WBC (Bld) 0 % 0 - 2 % [facility] Eosinophils (Bld) [#/Vol] 0.00 10*3/uL [facility] Eosinophils/100 WBC (Bld) 0 % Low 1 - 4 % [facility] Erythrocyte distribution width (RBC) [Ratio] 22.1 % High 11.8 - 14.4 % [facility] Hematocrit (Bld) [Volume fraction] 29.9 % Low 36.3 - 47.1 % [facility] Comment on above: TEST CONFIRMED Hemoglobin (Bld) [Mass/Vol] 10.2 g/dL Low 11.9 - 15.1 g/dL [facility] Comment on above: TEST CONFIRMED Immature granulocytes (Bld) [#/Vol] 0.07 10*3/uL [facility] Immature granulocytes/100 WBC (Bld) 1 % High 0 [facility] Interpretation and review of laboratory results Abnormal [facility] Lymphocytes/100 WBC (Bld) 17 % Low 24 - 43 % [facility] Lymphocytes/100 WBC (Bld) 1.11 % [facility] MCH (RBC) [Entitic mass] 31.6 pg 25.2 - 33.5 pg [facility] MCHC (RBC) [Mass/Vol] 34.1 g/dL 28.4 - 34.8 g/dL [facility] MCV (RBC) [Entitic vol] 92.6 fL 82.6 - 102.9 fL [facility] Monocytes/100 WBC (Bld) 6 % 3 - 12 % [facility] Monocytes/100 WBC (Bld) 0.39 % [facility] Morphology Ritesh (Bld) [Interp] Normal [facility] Neutrophils/100 WBC (Bld) 76 % High 36 - 65 % [facility] Nucleated RBC/100 WBC (Bld) [Ratio] 0.0 % 0.0 per 100 WBC [facility] Platelet mean volume (Bld) [Entitic vol] 9.5 fL 8.1 - 13.5 fL [facility] Platelets (Bld) [#/Vol] 222 10*3/uL [facility] RBC (Bld) [#/Vol] 3.23 10*6/uL Low 3.95 - 5.11 m/uL [facility] Segmented neutrophils/100 WBC (Bld) 4.93 % [facility] WBC other (Bld) [#/Vol] 6.5 [facility] Basophils (Bld) [#/Vol] 0.03 10*3/uL [facility] Basophils/100 WBC (Bld) 1 % 0 - 2 % [facility] Eosinophils (Bld) [#/Vol] 0.14 10*3/uL [facility] Eosinophils/100 WBC (Bld) 3 % 1 - 4 % [facility] Erythrocyte distribution width (RBC) [Ratio] 18.6 % High 11.8 - 14.4 % [facility] Hematocrit (Bld) [Volume fraction] 32.5 % Low 36.3 - 47.1 % [facility] Hemoglobin (Bld) [Mass/Vol] 10.6 g/dL Low 11.9 - 15.1 g/dL [facility] Immature granulocytes (Bld) [#/Vol] [facility] Immature granulocytes/100 WBC (Bld) 0 % 0 [facility] Interpretation and review of laboratory results Abnormal [facility] Lymphocytes/100 WBC (Bld) 29 % 24 - 43 % [facility] Lymphocytes/100 WBC (Bld) 1.44 % [facility] MCH (RBC) [Entitic mass] 33.5 pg 25.2 - 33.5 pg [facility] MCHC (RBC) [Mass/Vol] 32.6 g/dL 28.4 - 34.8 g/dL [facility] MCV (RBC) [Entitic vol] 102.8 fL 82.6 - 102.9 fL [facility] Monocytes/100 WBC (Bld) 11 % 3 - 12 % [facility] Monocytes/100 WBC (Bld) 0.54 % [facility] Neutrophils/100 WBC (Bld) 56 % 36 - 65 % [facility] Nucleated RBC/100 WBC (Bld) [Ratio] 0.0 % 0.0 per 100 WBC [facility] Platelet mean volume (Bld) [Entitic vol] 9.5 fL 8.1 - 13.5 fL [facility] Platelets (Bld) [#/Vol] 220 10*3/uL [facility] RBC (Bld) [#/Vol] 3.16 10*6/uL Low 3.95 - 5.11 m/uL [facility] RBC (Bld) [#/Vol] ANISOCYTOSIS PRESENT [facility] Segmented neutrophils/100 WBC (Bld) 2.72 % [facility] WBC other (Bld) [#/Vol] 4.9 [facility] CBC with Diffon 01-01-2024 Abs. Basophil 0.00 k/uL Normal 0.00-0.20 [facility] Comment on above: Performed By: #### O SMO, LD, MG, JESUS, TSHX, LIVP, B12FOL, LACTIC, FT4, BMP #### [facility] [address] [place] [address] Policy Checker: Tato Ibarra MD Abs.Imm.Granulocyte 0.07 k/uL Normal 0.00-0.30 [facility] Comment on above: Performed By: #### O SMO, LD, MG, JESUS, TSHX, LIVP, B12FOL, LACTIC, FT4, BMP #### [facility] [employer] [address] [place] [phone] Policy Checker: Tato Ibarra MD Abs.Neutrophil (Seg) 4.93 k/uL Normal 1.50-8.10 [facility] Comment on above: Performed By: #### O SMO, LD, MG, JESUS, TSHX, LIVP, B12FOL, LACTIC, FT4, BMP #### [facility] [employer] [address] [place] [phone] Policy Checker: Tato Ibarra MD Basophils/100 WBC (Bld) 0 % Normal 0-2 [facility] Comment on above: Performed By: #### O SMO, LD, MG, JESUS, TSHX, LIVP, B12FOL, LACTIC, FT4, BMP #### [address] [address] Policy Checker: Tato Ibarra MD Eosinophils (Bld) [#/Vol] 0.00 10*3/uL Normal 0.00-0.44 [facility] Comment on above: Performed By: #### O SMO, LD, MG, JESUS, TSHX, LIVP, B12FOL, LACTIC, FT4, BMP #### [place] [address] Policy Checker: Tato Ibarra MD Eosinophils/100 WBC (Bld) 0 % Low 1-4 [facility] Comment on above: Performed By: #### O SMO, LD, MG, JESUS, TSHX, LIVP, B12FOL, LACTIC, FT4, BMP #### [address] [address] Policy Checker: Tato Ibarra MD Immature granulocytes/100 WBC (Bld) 1 % High 0 [facility] Comment on above: Performed By: #### O SMO, LD, MG, JESUS, TSHX, LIVP, B12FOL, LACTIC, FT4, BMP #### [place] [address] Policy Checker: Tato Ibarra MD Lymphocytes (Bld) [#/Vol] 1.11 10*3/uL Normal 1.10-3.70 [facility] Comment on above: Performed By: #### O SMO, LD, MG, JESUS, TSHX, LIVP, B12FOL, LACTIC, FT4, BMP #### [address] [address] Policy Checker: Tato Ibarra MD Lymphocytes/100 WBC (Bld) 17 % Low 24-43 [facility] Comment on above: Performed By: #### O SMO, LD, MG, JESUS, TSHX, LIVP, B12FOL, LACTIC, FT4, BMP #### [address] [phone] Policy Checker: Tato Ibarra MD Monocytes (Bld) [#/Vol] 0.39 10*3/uL Normal 0.10-1.20 [facility] Comment on above: Performed By: #### O SMO, LD, MG, JESUS, TSHX, LIVP, B12FOL, LACTIC, FT4, BMP #### [address] [address] Policy Checker: Tato Ibarra MD Monocytes/100 WBC (Bld) 6 % Normal 3-12 [facility] Comment on above: Performed By: #### O SMO, LD, MG, JESUS, TSHX, LIVP, B12FOL, LACTIC, FT4, BMP #### [place] [address] Policy Checker: Tato Ibarra MD Morphology Ritesh (Bld) [Interp] Normal Normal [facility] Comment on above: Performed By: #### O SMO, LD, MG, JESUS, TSHX, LIVP, B12FOL, LACTIC, FT4, BMP #### [place] [address] Policy Checker: Tato Ibarra MD Neutrophil (Seg) 76 % High 36-65 [facility] Comment on above: Performed By: #### O SMO, LD, MG, JESUS, TSHX, LIVP, B12FOL, LACTIC, FT4, BMP #### [address] [address] Policy Checker: Tato Ibarra MD Erythrocyte distribution width (RBC) [Ratio] 22.1 % High 11.8-14.4 [facility] Comment on above: Performed By: #### O SMO, LD, MG, JESUS, TSHX, LIVP, B12FOL, LACTIC, FT4, BMP #### [address] [phone] Policy Checker: Tato Ibarra MD Hematocrit (Bld) [Volume fraction] 29.9 % Low 36.3-47.1 [facility] Comment on above: Result Comment: TEST CONFIRMED Performed By: #### O SMO, LD, MG, JESUS, TSHX, LIVP, B12FOL, LACTIC, FT4, BMP #### [address] [phone] Policy Checker: Tato Ibarra MD Hemoglobin (Bld) [Mass/Vol] 10.2 g/dL Low 11.9-15.1 [facility] Comment on above: Result Comment: TEST CONFIRMED Performed By: #### O SMO, LD, MG, JESUS, TSHX, LIVP, B12FOL, LACTIC, FT4, BMP #### [address] [phone] Policy Checker: Tato Ibarra MD MCH (RBC) [Entitic mass] 31.6 pg Normal 25.2-33.5 [facility] Comment on above: Performed By: #### O SMO, LD, MG, JESUS, TSHX, LIVP, B12FOL, LACTIC, FT4, BMP #### [address] [phone] Policy Checker: Tato Ibarra MD MCHC (RBC) [Mass/Vol] 34.1 g/dL Normal 28.4-34.8 [facility] Comment on above: Performed By: #### O SMO, LD, MG, JESUS, TSHX, LIVP, B12FOL, LACTIC, FT4, BMP #### [address] [phone] Policy Checker: Tato Ibarra MD MCV (RBC) [Entitic vol] 92.6 fL Normal 82.6-102.9 [facility] Comment on above: Performed By: #### O SMO, LD, MG, JESUS, TSHX, LIVP, B12FOL, LACTIC, FT4, BMP #### [address] [address] Policy Checker: Tato Ibarra MD NRBC Automated 0.0 per 100 WBC Normal 0.0 [facility] Comment on above: Performed By: #### O SMO, LD, MG, JESUS, TSHX, LIVP, B12FOL, LACTIC, FT4, BMP #### [address] [id number] Policy Checker: Tato Ibarra MD Platelet mean volume (Bld) [Entitic vol] 9.5 fL Normal 8.1-13.5 [facility] Comment on above: Performed By: #### O SMO, LD, MG, JESUS, TSHX, LIVP, B12FOL, LACTIC, FT4, BMP #### [address] [id number] Policy Checker: Tato Ibarra MD Platelets (Bld) [#/Vol] 222 10*3/uL Normal 138-453 [facility] Comment on above: Performed By: #### O SMO, LD, MG, JESUS, TSHX, LIVP, B12FOL, LACTIC, FT4, BMP #### [address] [address] Policy Checker: Tato Ibarra MD RBC (Bld) [#/Vol] 3.23 10*6/uL Low 3.95-5.11 [facility] Comment on above: Performed By: #### O SMO, LD, MG, JESUS, TSHX, LIVP, B12FOL, LACTIC, FT4, BMP #### [address] [address] Policy Checker: Tato Ibarra MD WBC (Bld) [#/Vol] 6.5 10*3/uL Normal 3.5-11.3 [facility] Comment on above: Performed By: #### O SMO, LD, MG, JESUS, TSHX, LIVP, B12FOL, LACTIC, FT4, BMP #### [place] [address] Policy Checker: Tato Ibarra MD Abs. Basophil 0.03 k/uL Normal 0.00-0.20 [facility] Comment on above: Performed By: #### O SMO, LD, MG, JESUS, TSHX, LIVP, B12FOL, LACTIC, FT4, BMP #### [place] [address] Policy Checker: Tato Ibarra MD Abs.Imm.Granulocyte <0.03 Normal 0.00-0.30 [facility] [facility] Comment on above: Performed By: #### O SMO, LD, MG, JESUS, TSHX, LIVP, B12FOL, LACTIC, FT4, BMP #### [place] [address] Policy Checker: Tato Ibarra MD Abs.Neutrophil (Seg) 2.72 k/uL Normal 1.50-8.10 [facility] Comment on above: Performed By: #### O SMO, LD, MG, JESUS, TSHX, LIVP, B12FOL, LACTIC, FT4, BMP #### [place] [address] Policy Checker: Tato Ibarra MD Basophils/100 WBC (Bld) 1 % Normal 0-2 [facility] Comment on above: Performed By: #### O SMO, LD, MG, JESUS, TSHX, LIVP, B12FOL, LACTIC, FT4, BMP #### [place] [address] Policy Checker: Tato Ibarra MD Eosinophils (Bld) [#/Vol] 0.14 10*3/uL Normal 0.00-0.44 [facility] Comment on above: Performed By: #### O SMO, LD, MG, JESUS, TSHX, LIVP, B12FOL, LACTIC, FT4, BMP #### [facility] [employer] [address] [place] [phone] Policy Checker: Tato Ibarra MD Eosinophils/100 WBC (Bld) 3 % Normal 1-4 [facility] Comment on above: Performed By: #### O SMO, LD, MG, JESUS, TSHX, LIVP, B12FOL, LACTIC, FT4, BMP #### [address] [phone] Policy Checker: Tato Ibarra MD Erythrocyte distribution width (RBC) [Ratio] 18.6 % High 11.8-14.4 [facility] Comment on above: Performed By: #### O SMO, LD, MG, JESUS, TSHX, LIVP, B12FOL, LACTIC, FT4, BMP #### [facility] [employer] [address] [place] [address] Policy Checker: Tato Ibarra MD Hematocrit (Bld) [Volume fraction] 32.5 % Low 36.3-47.1 [facility] Comment on above: Performed By: #### O SMO, LD, MG, JESUS, TSHX, LIVP, B12FOL, LACTIC, FT4, BMP #### [facility] [employer] [address] [place], [place] [phone] Policy Checker: Tato Ibarra MD Hemoglobin (Bld) [Mass/Vol] 10.6 g/dL Low 11.9-15.1 [facility] Comment on above: Performed By: #### O SMO, LD, MG, JESUS, TSHX, LIVP, B12FOL, LACTIC, FT4, BMP #### [facility] [employer] [address] [place] [address] [phone] Policy Checker: Tato Ibarra MD Immature granulocytes/100 WBC (Bld) 0 % Normal 0 [facility] Comment on above: Performed By: #### O SMO, LD, MG, JESUS, TSHX, LIVP, B12FOL, LACTIC, FT4, BMP #### [address] [phone] Policy Checker: Tato Ibarra MD Lymphocytes (Bld) [#/Vol] 1.44 10*3/uL Normal 1.10-3.70 [facility] Comment on above: Performed By: #### O SMO, LD, MG, JESUS, TSHX, LIVP, B12FOL, LACTIC, FT4, BMP #### [address] [address] Policy Checker: Tato Ibarra MD Lymphocytes/100 WBC (Bld) 29 % Normal 24-43 [facility] Comment on above: Performed By: #### O SMO, LD, MG, JESUS, TSHX, LIVP, B12FOL, LACTIC, FT4, BMP #### [address] [address] Policy Checker: Tato Ibarra MD MCH (RBC) [Entitic mass] 33.5 pg Normal 25.2-33.5 [facility] Comment on above: Performed By: #### O SMO, LD, MG, JESUS, TSHX, LIVP, B12FOL, LACTIC, FT4, BMP #### [address] [address] Policy Checker: Tato Ibarra MD MCHC (RBC) [Mass/Vol] 32.6 g/dL Normal 28.4-34.8 [facility] Comment on above: Performed By: #### O SMO, LD, MG, JESUS, TSHX, LIVP, B12FOL, LACTIC, FT4, BMP #### [address] [address] Policy Checker: Tato Ibarra MD MCV (RBC) [Entitic vol] 102.8 fL Normal 82.6-102.9 [facility] Comment on above: Performed By: #### O SMO, LD, MG, JESUS, TSHX, LIVP, B12FOL, LACTIC, FT4, BMP #### [address] [address] Policy Checker: Tato Ibarra MD Monocytes (Bld) [#/Vol] 0.54 10*3/uL Normal 0.10-1.20 [facility] Comment on above: Performed By: #### O SMO, LD, MG, JESUS, TSHX, LIVP, B12FOL, LACTIC, FT4, BMP #### [place] [address] Policy Checker: Tato Ibarra MD Monocytes/100 WBC (Bld) 11 % Normal 3-12 [facility] Comment on above: Performed By: #### O SMO, LD, MG, JESUS, TSHX, LIVP, B12FOL, LACTIC, FT4, BMP #### [place] [address] Policy Checker: Tato Ibarra MD Neutrophil (Seg) 56 % Normal 36-65 [facility] Comment on above: Performed By: #### O SMO, LD, MG, JESUS, TSHX, LIVP, B12FOL, LACTIC, FT4, BMP #### [place] [address] Policy Checker: Tato Ibarra MD NRBC Automated 0.0 per 100 WBC Normal 0.0 [facility] Comment on above: Performed By: #### O SMO, LD, MG, JESUS, TSHX, LIVP, B12FOL, LACTIC, FT4, BMP #### [address] [address] Policy Checker: Tato Ibarra MD Platelet mean volume (Bld) [Entitic vol] 9.5 fL Normal 8.1-13.5 [facility] Comment on above: Performed By: #### O SMO, LD, MG, JESUS, TSHX, LIVP, B12FOL, LACTIC, FT4, BMP #### [address] [address] Policy Checker: Tato Ibarra MD Platelets (Bld) [#/Vol] 220 10*3/uL Normal 138-453 [facility] Comment on above: Performed By: #### O SMO, LD, MG, JESUS, TSHX, LIVP, B12FOL, LACTIC, FT4, BMP #### [address] [address] Policy Checker: Tato Ibarra MD RBC (Bld) [#/Vol] 3.16 10*6/uL Low 3.95-5.11 [facility] Comment on above: Performed By: #### O SMO, LD, MG, JESUS, TSHX, LIVP, B12FOL, LACTIC, FT4, BMP #### [facility] [employer] [address] [place] [phone] Policy Checker: Tato Ibarra MD RBC morphology finding Nom (Bld) ANISOCYTOSIS PRESENT Normal [facility] Comment on above: Performed By: #### O SMO, LD, MG, JESUS, TSHX, LIVP, B12FOL, LACTIC, FT4, BMP #### [address] [address] Policy Checker: Tato Ibarra MD WBC (Bld) [#/Vol] 4.9 10*3/uL Normal 3.5-11.3 [facility] Comment on above: Performed By: #### O SMO, LD, MG, JESUS, TSHX, LIVP, B12FOL, LACTIC, FT4, BMP #### [address] [address] Policy Checker: Tato Ibarra MD CTA Abdominal vessels and Pe lvis vessels WO and W contrast Mustapha 01-01-2024 Radiology Study observation (narrative) [facility] Calcium, Ionicon 01-01-2024 Calcium [Moles/Vol] 1.13 mmol/L Normal 1.13-1.33 [facility] Comment on above: Performed By: #### O SMO, LD, MG, JESUS, TSHX, LIVP, B12FOL, LACTIC, FT4, BMP #### [facility] [address] [place] [address] Policy Checker: Tato Ibarra MD Calcium, Ionizedon 4 Calcium.ionized (Bld) [Moles/Vol] 1.13 mmol/L 1.13 - 1.33 mmol/L [facility] EKG 12 LeadOrdered By: Omar Hoover on 01-01-2024 Atrial Rate 87 BPM [employer] Work Phone: P [place] 35 degrees [employer] Work Phone: P-R Interval 164 ms [employer] Work Phone: Q-T Interval 412 ms [employer] Phone: QRS Duration 82 ms [employer] Phone: QTc Calculation (Bazett) 495 ms [employer] Phone: R [place] 33 degrees [employer] Work Phone: T [place] 25 degrees [employer] Phone: Ventricular Rate 87 BPM [employer] Work Phone: [phone] [employer] Phone: [phone] EKG 12 Leadon 01-01-2024 Normal sinus rhythm Nonspecific ST and T wave abnormality Prolonged QT Abnormal ECG When compared with ECG of 31-DEC-2023 16:00, No significant change was found [facility] Omar Villasenor MD - 01/01/2024 Normal sinus rhythm Nonspecific ST and T wave abnormality Prolonged QT Abnormal ECG When compared with ECG of 31-DEC-2023 16:00, No significant change was found [facility] Fecal Lactoferrinon 01-01-20 Fecal Lactoferrin POSITIVE for fecal lactoferrin, a marker for fecal leukocytes and an indicator Abnormal [employer] Comment on above: Result Comment: of i ntestinal inflammation. Performed By: #### P TT, PT #### [facility] [place] [phone] Policy Checker: Tato Ibarra MD Fecal lactoferrinon 01-01-20 Interpretation and review of laboratory results Abnormal [facility] [employer] Lactoferrin Ql (Stl) POSITIVE for fecal lactoferrin, a marker for fecal leukocytes and an indicator of intestinal inflammation. Abnormal NEGATIVE for fecal lactoferrin. [facility] [employer] Glucose,Whole Bloodon 2023 Glucose [Mass/Vol] 111 mg/dL High 65-105 [facility] Hemoglobin and Hematocriton 01-01-2024 Hematocrit (Bld) [Volume fraction] 24.2 % Low 36.3 - 47.1 % [facility] Hemoglobin (Bld) [Mass/Vol] 7.7 g/dL Low 11.9 - 15.1 g/dL [facility] Interpretation and review of laboratory results Abnormal [facility] Hematocrit (Bld) [Volume fraction] DUPLICATE ORDER 36.3 - 47.1 % [facility] Hemoglobin (Bld) [Mass/Vol] DUPLICATE ORDER 11.9 - 15.1 g/dL [facility] Hematocrit (Bld) [Volume fraction] 31.8 % Low 36.3 - 47.1 % [facility] Hemoglobin (Bld) [Mass/Vol] 10.3 g/dL Low 11.9 - 15.1 g/dL [facility] Interpretation and review of laboratory results Abnormal [facility] [employer] Hepatic Function Panelon Albumin [Mass/Vol] 2.8 g/dL Low 3.5 - 5.2 g/dL [facility] [employer] Albumin/Globulin [Mass ratio] 1.0 {ratio} 1.0 - 2.5 [facility] ALP [Catalytic activity/Vol] 161 U/L High 35 - 104 U/L [facility] ALT [Catalytic activity/Vol] 10 U/L 10 - 35 U/L [facility] AST [Catalytic activity/Vol] 40 U/L High 10 - 35 U/L [facility] Bilirubin [Mass/Vol] 0.3 mg/dL 0.00 - 1.20 mg/ dL [facility] Bilirubin.direct [Mass/Vol] mg/dL 0.0 - 0.2 mg/dL [facility] Bilirubin.indirect [Mass/Vol] Can not be calculated 0.0 - 1.0 mg/dL [facility] Globulin (S) [Mass/Vol] 2.2 g/dL [facility] Protein [Mass/Vol] 5.0 g/dL Low 6.6 - 8.7 g/dL [facility] Hgb/Hcton 01-01-2024 Hematocrit (Bld) [Volume fraction] 24.2 % Low 36.3-47.1 [facility] Comment on above: Performed By: #### O SMO, LD, MG, JESUS, TSHX, LIVP, B12FOL, LACTIC, FT4, BMP #### [facility] [address] [place] [phone] Policy Checker: Tato Ibarra MD Hemoglobin (Bld) [Mass/Vol] 7.7 g/dL Low 11.9-15.1 [facility] Comment on above: Performed By: #### O SMO, LD, MG, JESUS, TSHX, LIVP, B12FOL, LACTIC, FT4, BMP #### [facility] [address] [place] [phone] Policy Checker: Tato Ibarra MD Hematocrit DUPLICATE ORDER Normal 36.3-47.1 [facility] Comment on above: Performed By: #### O SMO, LD, MG, JESUS, TSHX, LIVP, B12FOL, LACTIC, FT4, BMP #### [facility] [address] [place] [address] [phone] Policy Checker: Tato Ibarra MD Hemoglobin DUPLICATE ORDER Normal 11.9-15.1 [facility] Comment on above: Performed By: #### O SMO, LD, MG, JESUS, TSHX, LIVP, B12FOL, LACTIC, FT4, BMP #### [address] [phone] Policy Checker: Tato Ibarra MD Hematocrit (Bld) [Volume fraction] 31.8 % Low 36.3-47.1 [facility] Comment on above: Performed By: #### O SMO, LD, MG, JESUS, TSHX, LIVP, B12FOL, LACTIC, FT4, BMP #### [address] [phone] Policy Checker: Tato Ibarra MD Hemoglobin (Bld) [Mass/Vol] 10.3 g/dL Low 11.9-15.1 [facility] Comment on above: Performed By: #### O SMO, LD, MG, JESUS, TSHX, LIVP, B12FOL, LACTIC, FT4, BMP #### [address] [address] Policy Checker: Tato Ibarra MD IR EMBOLIZATION HEMORRHAGEon 01-01-2024 Radiology Study observation (narrative) [facility] Lactate, Sepsison 01-01-2024 Lactic Acid, Sepsis, Whole Blood 0.9 mmol/L 0.5 - 1.9 mmol/L [facility] Lactic Acid,Sep Wbld 0.9 mmol/L Normal 0.5-1.9 [facility] Comment on above: Performed By: #### O SMO, LD, MG, JESUS, TSHX, LIVP, B12FOL, LACTIC, FT4, BMP #### [facility] [employer] [address] [place] [address] [phone] Policy Checker: Tato Ibarra MD Liver Profileon 01-01-2024 Albumin [Mass/Vol] 2.8 g/dL Low 3.5-5.2 [facility] Comment on above: Performed By: #### O SMO, LD, MG, JESUS, TSHX, LIVP, B12FOL, LACTIC, FT4, BMP #### [address] [address] Policy Checker: Tato Ibarra MD Albumin/Glob Ratio 1.0 Normal 1.0-2.5 [facility] Comment on above: Performed By: #### O SMO, LD, MG, JESUS, TSHX, LIVP, B12FOL, LACTIC, FT4, BMP #### [address] [address] Policy Checker: Tato Ibarra MD Alkaline Phos 161 U/L High 35-104 [facility] Comment on above: Performed By: #### O SMO, LD, MG, JESUS, TSHX, LIVP, B12FOL, LACTIC, FT4, BMP #### [address] [address] Policy Checker: Tato Ibarra MD ALT [Catalytic activity/Vol] 10 U/L Normal 10-35 [facility] Comment on above: Performed By: #### O SMO, LD, MG, JESUS, TSHX, LIVP, B12FOL, LACTIC, FT4, BMP #### [address] [address] Policy Checker: Tato Ibarra MD AST [Catalytic activity/Vol] 40 U/L High 10-35 [facility] Comment on above: Performed By: #### O SMO, LD, MG, JESUS, TSHX, LIVP, B12FOL, LACTIC, FT4, BMP #### [address] [address] Policy Checker: Tato Ibarra MD Bilirubin [Mass/Vol] 0.3 mg/dL Normal 0.00-1.20 [facility] Comment on above: Performed By: #### O SMO, LD, MG, JESUS, TSHX, LIVP, B12FOL, LACTIC, FT4, BMP #### [address] [address] Policy Checker: Tato Ibarra MD Bilirubin, Indirect Can not be calculated Normal 0.0-1.0 [facility] Comment on above: Performed By: #### O SMO, LD, MG, JESUS, TSHX, LIVP, B12FOL, LACTIC, FT4, BMP #### [facility] [employer] [address] [place] [phone] Policy Checker: Tato Ibarra MD Bilirubin.indirect [Mass/Vol] mg/dL Normal 0.0-0.2 [facility] Comment on above: Performed By: #### O SMO, LD, MG, JESUS, TSHX, LIVP, B12FOL, LACTIC, FT4, BMP #### [facility] [employer] [address] [place] [phone] Policy Checker: Tato Ibarra MD Globulin (S) [Mass/Vol] 2.2 g/dL Normal [facility] Comment on above: Performed By: #### O SMO, LD, MG, JESUS, TSHX, LIVP, B12FOL, LACTIC, FT4, BMP #### [facility] [employer] [address] [place] [phone] Policy Checker: Tato Ibarra MD Protein [Mass/Vol] 5.0 g/dL Low 6.6-8.7 [facility] Comment on above: Performed By: #### O SMO, LD, MG, JESUS, TSHX, LIVP, B12FOL, LACTIC, FT4, BMP #### [facility] [employer] [address] [place] [phone] Policy Checker: Tato Ibarra MD MRSA, DNA, Nasalon 4 Specimen Description .NASAL SWAB Normal [facility] Comment on above: Performed By: #### O SMO, LD, MG, JESUS, TSHX, LIVP, B12FOL, LACTIC, FT4, BMP #### [facility] [address] [place] [phone] Policy Checker: Tato Ibarra MD Magnesiumon 01-01-2024 Magnesium [Mass/Vol] 2.0 mg/dL 1.6 - 2.6 mg/dL [facility] Magnesium [Mass/Vol] 2.0 mg/dL Normal 1.6-2.6 [facility] Comment on above: Performed By: #### O SMO, LD, MG, JESUS, TSHX, LIVP, B12FOL, LACTIC, FT4, BMP #### [facility] [address] [place] [phone] Policy Checker: Tato Ibarra MD No Panel Informationon 12-31 [facility] Interpretation and review of laboratory results Abnormal [facility] POC Glucose Fingerstickon Glucose [Mass/Vol] 111 mg/dL High 65 - 105 mg/dL [facility] Interpretation and review of laboratory results Abnormal [facility] PREVIOUS SPECIMENon 01-01-20 24 [facility] PTon 01-01-2024 INR Coag (PPP) [Relative time] 0.9 {INR} Normal [facility] Comment on above: Result Comment: Therapeutic Range: Moderate Anticoagulant Intensity: INR = 2.0-3.0 High Anticoagulant Intensity: INR = 2.5-3.5 Performed By: #### P TT, PT #### [facility] [address] [place] [address] [phone] Policy Checker: Tato Ibarra MD PT Coag (PPP) [Time] 12.3 s Normal 11.7-14.9 [facility] Comment on above: Performed By: #### P TT, PT #### [facility] [address] [place] [address] [phone] Policy Checker: Tato Ibarra MD Protime-INRon 01-01-2024 INR Coag (PPP) [Relative time] 0.9 {INR} [facility] [employer] Comment on above: Therapeutic Range: Moderate Anticoagulant Intensity: INR = 2.0-3.0 High Anticoagulant Intensity: INR = 2.5-3.5 PT Coag (PPP) [Time] 12.3 s [facility] Type + Screenon 01-01-2024 Type + Screen Sample Expiration 01/03/2024,2359 Arm Band Number [id number] ABO/Rh(D) O NEGATIVE Antibody Screen NEGATIVE Unit Number [id number] Blood Component Type Leukocyte Reduced Red Cell Unit Division 00 Status of Unit TRANSFUSED Transfusion Status OK TO TRANSFUSE Crossmatch Result COMPATIBLE Unit Number [id number] Blood Component Type Leukocyte Reduced Red Cell Unit Division 00 Status of Unit TRANSFUSED Transfusion Status OK TO TRANSFUSE Crossmatch Result COMPATIBLE Normal [facility] Comment on above: Performed By: #### P TT, PT #### [facility] [address] [place], [place] [phone] Policy Checker: Tato Ibarra MD APTTon 12-31-2023 aPTT Coag (Bld) [Time] 27.6 s [facility] Comment on above: IV Heparin Therapy Range: 66.0-92.0 sec aPTT Coag (Bld) [Time] 27.6 s Normal 23.0-36.5 [facility] Comment on above: Result Comment: IV Heparin Therapy Range: 66.0-92.0 sec Performed By: #### O SMO, LD, MG, JESUS, TSHX, LIVP, B12FOL, LACTIC, FT4, BMP #### [facility] [address] [place] [phone] Policy Checker: Tato Ibarra MD aPTT Coag (Bld) [Time] 27.8 s [facility] [employer] Comment on above: IV Heparin Therapy Range: 66.0-92.0 sec aPTT Coag (Bld) [Time] 27.8 s Normal 23.0-36.5 [facility] Comment on above: Result Comment: IV Heparin Therapy Range: 66.0-92.0 sec Performed By: #### O SMO, LD, MG, JESUS, TSHX, LIVP, B12FOL, LACTIC, FT4, BMP #### [facility] [address] [place] [address] Policy Checker: Tato Ibarra MD B12/Folate Panelon Cobalamin (Vitamin B12) [Mass/Vol] 271 pg/mL Normal 232-1245 [facility] Comment on above: Performed By: #### P TT, PT #### [facility] [address] [place] [address] Policy Checker: Tato Ibarra MD Folic Acid 5.4 ng/mL Normal 4.8-24.2 [facility] Comment on above: Performed By: #### P TT, PT #### [facility] [address] [place] [phone] Policy Checker: Tato Ibarra MD BLOOD BANK SPECIMENon 2023 [facility] [employer] Basic Metabolic Panelon 08 Anion gap [Moles/Vol] 10 mmol/L 9 - 16 mmol/L [facility] [employer] Calcium [Mass/Vol] 8.5 mg/dL Low 8.6 - 10.4 mg/dL [facility] [employer] [facility] Chloride [Moles/Vol] 105 mmol/L 98 - 107 mmol/L [facility] [employer] [facility] CO2 [Moles/Vol] 20 mmol/L 20 - 31 mmol/L [facility] Creatinine [Mass/Vol] 0.4 mg/dL Low 0.50 - 0.90 mg/dL [facility], Glom Filt Rate - [facility] Comment on above: These results are not [...] [Mass/Vol] 89 mg/dL 74 - 99 mg/dL [facility] Potassium [Moles/Vol] 3.7 mmol/L 3.7 - 5.3 mmol/L [facility] Sodium [Moles/Vol] 135 mmol/L Low 136 - 145 mmol/L [facility] Urea nitrogen [Mass/Vol] 2 mg/dL Low 6 - 20 mg/dL [facility] Basic Metabolic Profon 12-30 Anion gap [Moles/Vol] 10 mmol/L Normal 9-16 [facility] Comment on above: Performed By: #### O SMO, LD, MG, JESUS, TSHX, LIVP, B12FOL, LACTIC, FT4, BMP #### [address] [address] Policy Checker: Tato Ibarra MD Calcium [Mass/Vol] 8.5 mg/dL Low 8.6-10.4 [facility] Comment on above: Performed By: #### O SMO, LD, MG, JESUS, TSHX, LIVP, B12FOL, LACTIC, FT4, BMP #### [address] [address] Policy Checker: Tato Ibarra MD Chloride [Moles/Vol] 105 mmol/L Normal 98-107 [facility] Comment on above: Performed By: #### O SMO, LD, MG, JESUS, TSHX, LIVP, B12FOL, LACTIC, FT4, BMP #### [facility] [address] [place] [phone] Policy Checker: Tato Ibarra MD CO2 [Moles/Vol] 20 mmol/L Normal 20-31 [facility] Comment on above: Performed By: #### O SMO, LD, MG, JESUS, TSHX, LIVP, B12FOL, LACTIC, FT4, BMP #### [address] [address] Policy Checker: Tato Ibarra MD Creatinine [Mass/Vol] 0.4 mg/dL Low 0.50-0.90 [facility] Comment on above: Performed By: #### O SMO, LD, MG, JESUS, TSHX, LIVP, B12FOL, LACTIC, FT4, BMP #### [address] [address] Policy Checker: Tato Ibarra MD GFR/1.73 sq M.predicted among [...] TSHX, LIVP, B12FOL, LACTIC, FT4, BMP #### [address] [address] Policy Checker: Tato Ibarra MD Glucose [Mass/Vol] 89 mg/dL Normal 74-99 [facility] Comment on above: Performed By: #### O SMO, LD, MG, JESUS, TSHX, LIVP, B12FOL, LACTIC, FT4, BMP #### [address] [address] Policy Checker: Tato Ibarra MD Potassium [Moles/Vol] 3.7 mmol/L Normal 3.7-5.3 [facility] Comment on above: Performed By: #### O SMO, LD, MG, JESUS, TSHX, LIVP, B12FOL, LACTIC, FT4, BMP #### [address] [address] Policy Checker: Tato Ibarra MD Sodium [Moles/Vol] 135 mmol/L Low 136-145 [facility] Comment on above: Performed By: #### O SMO, LD, MG, JESUS, TSHX, LIVP, B12FOL, LACTIC, FT4, BMP #### [facility] [employer] [address] [place] [address] [phone] Policy Checker: Tato Ibarra MD Urea nitrogen [Mass/Vol] 2 mg/dL Low 6-20 [facility] Comment on above: Performed By: #### O SMO, LD, MG, JESUS, TSHX, LIVP, B12FOL, LACTIC, FT4, BMP #### [facility] [employer] [address] [place] [address] [phone] Policy Checker: Tato Ibarra MD C DIFF TOXIN/ANTIGENon 12-30 C. difficile glutamate dehydrogenase and toxins A+B IA.rapid Ql (Stl) Negative NEGATIVE [facility] Comment on above: No C. difficile anti gen and Toxin Detected. Specimen Description .FECES [facility] C diff Ag + Toxinon 12-31-19 24 C diff Ag + Toxin Negative Normal NEG [facility] Comment on above: Result Comment: No C . difficile antigen and Toxin Detected. Performed By: #### P TT, PT #### [facility] [employer] [address] [place] [address] [phone] Policy Checker: Tato Ibarra MD Specimen Description .FECES Normal [facility] Comment on above: Performed By: #### P TT, PT #### [facility] [employer] [address] [place] [address] [phone] Policy Checker: Tato Ibarra MD CBC with Auto Differentialon 12-31-2023 Basophils (Bld) [#/Vol] 0.03 10*3/uL [facility] Basophils/100 WBC (Bld) 1 % 0 - 2 % [facility] Eosinophils (Bld) [#/Vol] 0.12 10*3/uL [facility] Eosinophils/100 WBC (Bld) 2 % 1 - 4 % [facility] Erythrocyte distribution width (RBC) [Ratio] 18.8 % High 11.8 - 14.4 % [facility] Hematocrit (Bld) [Volume fraction] 33.2 % Low 36.3 - 47.1 % [facility] Hemoglobin (Bld) [Mass/Vol] 10.9 g/dL Low 11.9 - 15.1 g/dL [facility] Immature granulocytes (Bld) [#/Vol] 0.03 10*3/uL [facility] Immature granulocytes/100 WBC (Bld) 1 % High 0 [facility] Interpretation and review of laboratory results Abnormal [facility] Lymphocytes/100 WBC (Bld) 27 % 24 - 43 % [facility] Lymphocytes/100 WBC (Bld) 1.41 % [facility] MCH (RBC) [Entitic mass] 34.1 pg High 25.2 - 33.5 pg [facility] MCHC (RBC) [Mass/Vol] 32.8 g/dL 28.4 - 34.8 g/dL [facility] MCV (RBC) [Entitic vol] 103.8 fL High 82.6 - 102.9 fL [facility] Monocytes/100 WBC (Bld) 9 % 3 - 12 % [facility] Monocytes/100 WBC (Bld) 0.44 % [facility] Neutrophils/100 WBC (Bld) 60 % 36 - 65 % [facility] Nucleated RBC/100 WBC (Bld) [Ratio] 0.0 % 0.0 per 100 WBC [facility] Platelet mean volume (Bld) [Entitic vol] 9.2 fL 8.1 - 13.5 fL [facility] [place] Platelets (Bld) [#/Vol] 197 10*3/uL [facility] RBC (Bld) [#/Vol] 3.20 10*6/uL Low 3.95 - 5.11 m/uL [facility] RBC (Bld) [#/Vol] ANISOCYTOSIS PRESENT [facility] RBC (Bld) [#/Vol] MACROCYTOSIS PRESENT [facility] Segmented neutrophils/100 WBC (Bld) 3.14 % [facility] WBC other (Bld) [#/Vol] 5.2 [facility] CBC with Diffon 12-31-2023 Abs. Basophil 0.03 k/uL Normal 0.00-0.20 [facility] Comment on above: Performed By: #### O SMO, LD, MG, JESUS, TSHX, LIVP, B12FOL, LACTIC, FT4, BMP #### [facility] [address] [place] [phone] Policy Checker: Tato Ibarra MD Abs.Imm.Granulocyte 0.03 k/uL Normal 0.00-0.30 [facility] Comment on above: Performed By: #### O SMO, LD, MG, JESUS, TSHX, LIVP, B12FOL, LACTIC, FT4, BMP #### [facility] [employer] [address] [place] [address] [phone] Policy Checker: Tato Ibarra MD Abs.Neutrophil (Seg) 3.14 k/uL Normal 1.50-8.10 [facility] Comment on above: Performed By: #### O SMO, LD, MG, JESUS, TSHX, LIVP, B12FOL, LACTIC, FT4, BMP #### [facility] [employer] [address] [place] [phone] Policy Checker: Tato Ibarra MD Basophils/100 WBC (Bld) 1 % Normal 0-2 [facility] Comment on above: Performed By: #### O SMO, LD, MG, JESUS, TSHX, LIVP, B12FOL, LACTIC, FT4, BMP #### [facility] [employer] [address] [place] [phone] Policy Checker: Tato Ibarra MD Eosinophils (Bld) [#/Vol] 0.12 10*3/uL Normal 0.00-0.44 [facility] Comment on above: Performed By: #### O SMO, LD, MG, JESUS, TSHX, LIVP, B12FOL, LACTIC, FT4, BMP #### [address] [phone] Policy Checker: Tato Ibarra MD Eosinophils/100 WBC (Bld) 2 % Normal 1-4 [facility] Comment on above: Performed By: #### O SMO, LD, MG, JESUS, TSHX, LIVP, B12FOL, LACTIC, FT4, BMP #### [place] [phone] Policy Checker: Tato Ibarra MD Erythrocyte distribution width (RBC) [Ratio] 18.8 % High 11.8-14.4 [facility] Comment on above: Performed By: #### O SMO, LD, MG, JESUS, TSHX, LIVP, B12FOL, LACTIC, FT4, BMP #### [place] [address] Policy Checker: Tato Ibarra MD Hematocrit (Bld) [Volume fraction] 33.2 % Low 36.3-47.1 [facility] Comment on above: Performed By: #### O SMO, LD, MG, JESUS, TSHX, LIVP, B12FOL, LACTIC, FT4, BMP #### [place] [phone] Policy Checker: Tato Ibarra MD Hemoglobin (Bld) [Mass/Vol] 10.9 g/dL Low 11.9-15.1 [facility] Comment on above: Performed By: #### O SMO, LD, MG, JESUS, TSHX, LIVP, B12FOL, LACTIC, FT4, BMP #### [address] [phone] Policy Checker: Tato Ibarra MD Immature granulocytes/100 WBC (Bld) 1 % High 0 [facility] Comment on above: Performed By: #### O SMO, LD, MG, JESUS, TSHX, LIVP, B12FOL, LACTIC, FT4, BMP #### [address] [address] Policy Checker: Tato Ibarra MD Lymphocytes (Bld) [#/Vol] 1.41 10*3/uL Normal 1.10-3.70 [facility] Comment on above: Performed By: #### O SMO, LD, MG, JESUS, TSHX, LIVP, B12FOL, LACTIC, FT4, BMP #### [address] [address] Policy Checker: Tato bIarra MD Lymphocytes/100 WBC (Bld) 27 % Normal 24-43 [facility] Comment on above: Performed By: #### O SMO, LD, MG, JESUS, TSHX, LIVP, B12FOL, LACTIC, FT4, BMP #### [place] [address] Policy Checker: Tato Ibarra MD MCH (RBC) [Entitic mass] 34.1 pg High 25.2-33.5 [facility] Comment on above: Performed By: #### O SMO, LD, MG, JESUS, TSHX, LIVP, B12FOL, LACTIC, FT4, BMP #### [address] [address] Policy Checker: Tato Ibarra MD MCHC (RBC) [Mass/Vol] 32.8 g/dL Normal 28.4-34.8 [facility] Comment on above: Performed By: #### O SMO, LD, MG, JESUS, TSHX, LIVP, B12FOL, LACTIC, FT4, BMP #### [address] [phone] Policy Checker: Tato Ibarra MD MCV (RBC) [Entitic vol] 103.8 fL High 82.6-102.9 [facility] Comment on above: Performed By: #### O SMO, LD, MG, JESUS, TSHX, LIVP, B12FOL, LACTIC, FT4, BMP #### [address] [phone] Policy Checker: Tato Ibarra MD Monocytes (Bld) [#/Vol] 0.44 10*3/uL Normal 0.10-1.20 [facility] Comment on above: Performed By: #### O SMO, LD, MG, JESUS, TSHX, LIVP, B12FOL, LACTIC, FT4, BMP #### [address] [address] Policy Checker: Tato Ibarra MD Monocytes/100 WBC (Bld) 9 % Normal 3-12 [facility] Comment on above: Performed By: #### O SMO, LD, MG, JESUS, TSHX, LIVP, B12FOL, LACTIC, FT4, BMP #### [place] [address] Policy Checker: Tato Ibarra MD Neutrophil (Seg) 60 % Normal 36-65 [facility] Comment on above: Performed By: #### O SMO, LD, MG, JESUS, TSHX, LIVP, B12FOL, LACTIC, FT4, BMP #### [address] [address] Policy Checker: Tato Ibarra MD NRBC Automated 0.0 per 100 WBC Normal 0.0 [facility] Comment on above: Performed By: #### O SMO, LD, MG, JESUS, TSHX, LIVP, B12FOL, LACTIC, FT4, BMP #### [address] [address] Policy Checker: Tato Ibarra MD Platelet mean volume (Bld) [Entitic vol] 9.2 fL Normal 8.1-13.5 [facility] Comment on above: Performed By: #### O SMO, LD, MG, JESUS, TSHX, LIVP, B12FOL, LACTIC, FT4, BMP #### [facility] [employer] [address] [place] [phone] Policy Checker: Tato Ibarra MD Platelets (Bld) [#/Vol] 197 10*3/uL Normal 138-453 [facility] Comment on above: Performed By: #### O SMO, LD, MG, JESUS, TSHX, LIVP, B12FOL, LACTIC, FT4, BMP #### [facility] [address] [place] [phone] Policy Checker: Tato Ibarra MD RBC (Bld) [#/Vol] 3.20 10*6/uL Low 3.95-5.11 [facility] Comment on above: Performed By: #### O SMO, LD, MG, JESUS, TSHX, LIVP, B12FOL, LACTIC, FT4, BMP #### [address] [address] Policy Checker: Tato Ibarra MD RBC morphology finding Nom (Bld) ANISOCYTOSIS PRESENT Normal [facility] Comment on above: Result Comment: MACR OCYTOSIS PRESENT Performed By: #### O SMO, LD, MG, JESUS, TSHX, LIVP, B12FOL, LACTIC, FT4, BMP #### [address] [address] Policy Checker: Tato Ibarra MD WBC (Bld) [#/Vol] 5.2 10*3/uL Normal 3.5-11.3 [facility] Comment on above: Performed By: #### O SMO, LD, MG, JESUS, TSHX, LIVP, B12FOL, LACTIC, FT4, BMP #### [address] [address] Policy Checker: Tato Ibarra MD CREATININE, RANDOM URINEon 0 8- Creatinine (U) [Mass/Vol] 27.0 mg/dL Low 28.0 - 217.0 mg/dL [facility] Interpretation and review of laboratory results Abnormal [facility] [employer] Calcium, Ionicon 12-31-2023 Calcium [Moles/Vol] 1.23 mmol/L Normal 1.13-1.33 [facility] Comment on above: Performed By: #### O SMO, LD, MG, JESUS, TSHX, LIVP, B12FOL, LACTIC, FT4, BMP #### [facility] [address] [place] [address] Policy Checker: Tato Ibarra MD Calcium, Ionizedon Calcium.ionized (Bld) [Moles/Vol] 1.23 mmol/L 1.13 - 1.33 mmol/L [facility] [employer] [facility] Cardiac echo study Procedure on 12-31-2023 Ao Root Index 1.69 cm/m2 [facility] [employer] Aortic Root 3.3 cm [facility] [employer] AR Max Velocity PISA 3.1 m/s [facility] AR PHT 894.0 ms [facility] [employer] Ascending Aorta 4.1 cm [facility] [employer] Ascending Aorta Index 2.10 cm/m2 [facility] [employer] AV Area by Peak Velocity 2.5 cm2 [facility] [employer] AV Area by VTI 2.7 cm2 [facility] [employer] [facility] AV Mean Gradient 5 mmHg [facility] [employer] [facility] AV Mean Velocity 1.1 m/s [facility] [employer] AV Peak Gradient 11 mmHg [facility] [employer] AV Peak Velocity 1.6 m/s [facility] [employer] [facility] AV Velocity Ratio 0.69 [facility] VTI 32.0 cm [facility] [employer] SHANNA/BSA Peak Velocity 1.3 cm2/m2 [facility] [employer] SHANNA/BSA VTI 1.4 cm2/m2 [facility] [employer] Body surface area Derived from formula 1.99 m2 [facility] [employer] HEALTH E/E' Lateral 10.00 [facility] [employer] [facility] E/E' Ratio (Averaged) 14.00 [facility]' Septal 18.00 [facility] [employer] Est. RA Pressure 3 mmHg [facility] U[facility] [employer] Fractional Shortening 2D 31 % 28 - 44 % [facility] Interpretation and review of laboratory results Abnormal [facility] IVC Proxmal 1.8 cm [facility] IVSd 1.1 cm 0.6 - 0.9 cm [facility] LA Area 2C 19.7 cm2 [facility] LA Area 4C 17.3 cm2 [facility] LA Diameter 4.8 cm [facility] LA Major [place] 4.4 cm [facility] LA Minor [place] 4.6 cm [facility] LA Size Index 2.46 cm/m2 [facility] LA Volume BP 62 mL 22 - 52 mL [facility] LA Volume Index BP 32 ml/m2 16 - 34 ml/m2 [facility] LA Volume Index MOD A2C 34 ml/m2 16 - 34 ml/m2 [facility] LA Volume Index MOD A4C 28 ml/m2 16 - 34 ml/m2 [facility] LA Volume MOD A2C 66 mL 22 - 52 mL [facility] Bubbles LA Volume MOD A4C 55 mL 22 - 52 mL [facility] Bubbles LA/AO Root Ratio 1.45 [facility]da[facility] HEALTH LV E' Lateral Velocity 9 cm/s [facility] LV E' Septal Velocity 5 cm/s [facility] LV EDV A2C 70 mL [facility] LV EDV A4C 123 mL [facility] LV EDV Index A2C 36 mL/m2 [facility] LV EDV Index A4C 63 mL/m2 [facility] HEALTH LV Ejection Fraction A2C 47 % [facility] LV Ejection Fraction A4C 57 % [facility] LV ESV A2C 37 mL [facility] LV ESV A4C 53 mL [facility] LV ESV Index A2C 19 mL/m2 [facility] LV ESV Index A4C 27 mL/m2 [facility] LV Mass 2D 194.0 g Abnormal 67 - 162 g [facility] LV Mass 2D Index 99.5 g/m2 43 - 95 g/m2 [facility] LV RWT Ratio 0.46 [facility] LVIDd 4.8 cm 3.9 - 5.3 cm [facility] LVIDd Index 2.46 cm/m2 [facility] LVIDs 3.3 cm [facility] LVIDs Index 1.69 cm/m2 [facility] LVOT Area 3.8 cm2 [facility] LVOT Diameter 2.2 cm [facility] HEALTH LVOT Mean Gradient 2 mmHg [facility] LV[facility] Peak Gradient 4 mmHg [facility] LV[facility] Peak Velocity 1.1 m/s [facility] LVOT Stroke Volume Index 44.6 mL/m2 [facility] LVOT SV 87.0 ml [facility] LVOT VTI 22.9 cm [facility] LVOT:AV VTI Index 0.72 [facility] LVPWd 1.1 cm 0.6 - 0.9 cm [facility] MV A Velocity 0.42 m/s [facility] MV E Velocity 0.90 m/s [facility] MV E Wave Deceleration Time 64.0 ms [facility] MV E/A 2.14 [facility] RV Free Wall Peak S' 7 cm/s [facility] RVSP 26 mmHg [facility] TR Max Velocity 2.40 m/s [facility] TR Peak Gradient 23 mmHg [facility] Left Ventricle: Normal left ventricular systolic [...] Doppler was performed. No contrast was given. [facility] CV CPACS [facility] Radiology Study observation (narrative) [facility] Creatinine,Random Uron 12-30 Creatinine [Mass/Vol] 27.0 mg/dL Low 28.0-217.0 [facility] Comment on above: Performed By: #### O SMO, LD, MG, JESUS, TSHX, LIVP, B12FOL, LACTIC, FT4, BMP #### [facility] [place] [address] Policy Checker: Tato Ibarra MD Gastrointestinal Panel, [facility] 12-31-2023 Campylobacter sp DNA GOMEZ+probe Nom (Unsp spec) NEGATIVE: No Campylobacter spp. (jejuni or coli) DNA Detected NEGATIVE: No Campylobacter spp. (jejuni or coli) DNA Detecte [facility] E. coli enterotoxigenic eltA+estB genes GOMEZ+probe Ql (Stl) NEGATIVE: No Enterotoxigenic E. coli (ETEC) Heat-labile and heat-stable (LT/ST) DNA Detected NEGATIVE: No Enterotoxigenic E. coli (ETEC) Heat-labile and [facility] P. shigelloides DNA GOMEZ+probe Ql (Stl) Negative NEGATIVE: No Plesionomas shigelloides DNA Detected [facility] Salmonella sp DNA GOMEZ+probe Ql (Unsp spec) Negative NEGATIVE: No Salmonella spp. DNA Detected [facility] Shiga toxin stx gene GOMEZ+probe Nom (Unsp spec) Negative NEGATIVE: No Shiga toxin-producing gene(s) Detected [facility] Shigella sp DNA GOMEZ+probe Ql (Unsp spec) Negative NEGATIVE: No Shigella spp. / EIEC DNA Detected [facility] Specimen Description .FECES [facility] V. cholerae+parahaemoly ticus rfbL+trkH+tnaA genes GOMEZ+probe Ql (Stl) NEGATIVE: No Vibrio (V. vulnificus, V, parahaemolyticus and V. cholerae) DNA Detected NEGATIVE: No Vibrio (V. vulnificus, V, parahaemolyticus and [facility] Y. enterocolitica recN gene GOMEZ+probe Ql (Stl) Negative NEGATIVE: No Yersinia enterocolitica DNA Detected [facility] Hemoglobin and Hematocriton 12-31-2023 Hematocrit (Bld) [Volume fraction] 34.6 % Low 36.3 - 47.1 % [facility] Hemoglobin (Bld) [Mass/Vol] 11.3 g/dL Low 11.9 - 15.1 g/dL [facility] Interpretation and review of laboratory results Abnormal [facility] Hematocrit (Bld) [Volume fraction] 33.1 % Low 36.3 - 47.1 % [facility] Hemoglobin (Bld) [Mass/Vol] 10.8 g/dL Low 11.9 - 15.1 g/dL [facility] Interpretation and review of laboratory results Abnormal [facility] Hematocrit (Bld) [Volume fraction] 33.1 % Low 36.3 - 47.1 % [facility] Hemoglobin (Bld) [Mass/Vol] 11.2 g/dL Low 11.9 - 15.1 g/dL [facility] Interpretation and review of laboratory results Abnormal [facility] Hematocrit (Bld) [Volume fraction] 34.0 % Low 36.3 - 47.1 % [facility] Hemoglobin (Bld) [Mass/Vol] 11.1 g/dL Low 11.9 - 15.1 g/dL [facility] Interpretation and review of laboratory results Abnormal [facility] Hepatic Function Panelon Albumin [Mass/Vol] 3.0 g/dL Low 3.5 - 5.2 g/dL [facility] Albumin/Globulin [Mass ratio] 1.0 {ratio} 1.0 - 2.5 [facility] ALP [Catalytic activity/Vol] 174 U/L High 35 - 104 U/L [facility] ALT [Catalytic activity/Vol] 13 U/L 10 - 35 U/L [facility] AST [Catalytic activity/Vol] 47 U/L High 10 - 35 U/L [facility] Bilirubin [Mass/Vol] 0.4 mg/dL 0.00 - 1.20 mg/ dL [facility] Bilirubin.direct [Mass/Vol] 0.2 mg/dL 0.0 - 0.2 mg/dL [facility] Bilirubin.indirect [Mass/Vol] 0.2 mg/dL 0.0 - 1.0 mg/dL [facility] Globulin (S) [Mass/Vol] 2.2 g/dL [facility] Protein [Mass/Vol] 5.2 g/dL Low 6.6 - 8.7 g/dL [facility] Hgb/Hcton 12-31-2023 Hematocrit (Bld) [Volume fraction] 34.6 % Low 36.3-47.1 [facility] Comment on above: Performed By: #### O SMO, LD, MG, JESUS, TSHX, LIVP, B12FOL, LACTIC, FT4, BMP #### [facility] [employer] [address] [place], [place] [phone] Policy Checker: Tato Ibarra MD Hemoglobin (Bld) [Mass/Vol] 11.3 g/dL Low 11.9-15.1 [facility] Comment on above: Performed By: #### O SMO, LD, MG, JESUS, TSHX, LIVP, B12FOL, LACTIC, FT4, BMP #### [facility] [employer] [address] [place] [phone] Policy Checker: Tato Ibarra MD Hematocrit (Bld) [Volume fraction] 33.1 % Low 36.3-47.1 [facility] Comment on above: Performed By: #### O SMO, LD, MG, JESUS, TSHX, LIVP, B12FOL, LACTIC, FT4, BMP #### [facility] [address] [place] [address] Policy Checker: Tato Ibarra MD Hemoglobin (Bld) [Mass/Vol] 10.8 g/dL Low 11.9-15.1 [facility] Comment on above: Performed By: #### O SMO, LD, MG, JESUS, TSHX, LIVP, B12FOL, LACTIC, FT4, BMP #### [facility] [employer] [address] [place] [phone] Policy Checker: Tato Ibarra MD Hematocrit (Bld) [Volume fraction] 33.1 % Low 36.3-47.1 [facility] Comment on above: Performed By: #### P TT, PT #### [facility] [employer] [address] [place] [phone] Policy Checker: Tato Ibarra MD Hemoglobin (Bld) [Mass/Vol] 11.2 g/dL Low 11.9-15.1 [facility] Comment on above: Performed By: #### P TT, PT #### [facility] [address] [place] [phone] Policy Checker: Tato Ibarra MD Hematocrit (Bld) [Volume fraction] 34.0 % Low 36.3-47.1 [facility] Comment on above: Performed By: #### P TT, PT #### [facility] [address] [place] [phone] Policy Checker: Tato Ibarra MD Hemoglobin (Bld) [Mass/Vol] 11.1 g/dL Low 11.9-15.1 [facility] Comment on above: Performed By: #### P TT, PT #### [address] [address] Policy Checker: Tato Ibarra MD Iron Binding Cap.on 12-31-19 24 % Fe Saturation 11 % Low 20-55 [facility] Comment on above: Performed By: #### O SMO, LD, MG, JESUS, TSHX, LIVP, B12FOL, LACTIC, FT4, BMP #### [facility] [address] [place] [phone] Policy Checker: Tato Ibarra MD Iron [Mass/Vol] 24 ug/dL Low 37-145 [facility] Comment on above: Performed By: #### O SMO, LD, MG, JESUS, TSHX, LIVP, B12FOL, LACTIC, FT4, BMP #### [facility] [employer] [address] [place] [phone] Policy Checker: Tato Ibarra MD Total Fe Binding Cap 213 ug/dL Low 250-450 [facility] Comment on above: Performed By: #### O SMO, LD, MG, JESUS, TSHX, LIVP, B12FOL, LACTIC, FT4, BMP #### [facility] [address] [place] [phone] Policy Checker: Tato Ibarra MD Unbound Fe Bind Cap 189 ug/dL Normal 112-347 [facility] Comment on above: Performed By: #### O SMO, LD, MG, JESUS, TSHX, LIVP, B12FOL, LACTIC, FT4, BMP #### [facility] [address] [place] [phone] Policy Checker: Tato Ibarra MD Iron and TIBCon 12-31-2023 Interpretation and review of laboratory results Abnormal [facility] Iron [Mass/Vol] 24 ug/dL Low 37 - 145 ug/dL [facility] Iron binding capacity [Mass/Vol] 213 ug/dL Low 250 - 450 ug/dL [facility] Iron saturation [Mass fraction] 11 % Low 20 - 55 % [facility] UIBC 189 ug/dL 112 - 347 ug/dL [facility] Lactate Dehydrogenaseon LDH [Catalytic activity/Vol] 168 U/L 135 - 214 U/L [facility] LDH [Catalytic activity/Vol] 168 U/L Normal 135-214 [facility] Comment on above: Performed By: #### O SMO, LD, MG, JESUS, TSHX, LIVP, B12FOL, LACTIC, FT4, BMP #### [facility] [address] [place] [address] [phone] Policy Checker: Tato Ibarra MD Lactic Acidon 12-31-2023 Lactic Acid, Whole Blood 1.0 mmol/L 0.7 - 2.1 mmol/L [facility] Lactic Acid,Whole Bl 1.0 mmol/L Normal 0.7-2.1 [facility] Comment on above: Performed By: #### O SMO, LD, MG, JESUS, TSHX, LIVP, B12FOL, LACTIC, FT4, BMP #### [facility] [address] [place], [place] [phone] Policy Checker: Tato Ibarra MD Liver Profileon 12-31-2023 Albumin [Mass/Vol] 3.0 g/dL Low 3.5-5.2 [facility] Comment on above: Performed By: #### O SMO, LD, MG, JESUS, TSHX, LIVP, B12FOL, LACTIC, FT4, BMP #### [facility] [address] [place] [address] [phone] Policy Checker: Tato Ibarra MD Albumin/Glob Ratio 1.0 Normal 1.0-2.5 [facility] Comment on above: Performed By: #### O SMO, LD, MG, JESUS, TSHX, LIVP, B12FOL, LACTIC, FT4, BMP #### [address] [address] Policy Checker: Tato Ibarra MD Alkaline Phos 174 U/L [facility] 35-104 [facility] Comment on above: Performed By: #### O SMO, LD, MG, JESUS, TSHX, LIVP, B12FOL, LACTIC, FT4, BMP #### [address] [address] Policy Checker: Tato Ibarra MD ALT [Catalytic activity/Vol] 13 U/L Normal 10-35 [facility] Comment on above: Performed By: #### O SMO, LD, MG, JESUS, TSHX, LIVP, B12FOL, LACTIC, FT4, BMP #### [address] [address] Policy Checker: Tato Ibarra MD AST [Catalytic activity/Vol] 47 U/L High 10-35 [facility] Comment on above: Performed By: #### O SMO, LD, MG, JESUS, TSHX, LIVP, B12FOL, LACTIC, FT4, BMP #### [address] [address] Policy Checker: Tato Ibarra MD Bilirubin [Mass/Vol] 0.4 mg/dL Normal 0.00-1.20 [facility] Comment on above: Performed By: #### O SMO, LD, MG, JESUS, TSHX, LIVP, B12FOL, LACTIC, FT4, BMP #### [address] [address] Policy Checker: Tato Ibarra MD Bilirubin, Indirect 0.2 mg/dL Normal 0.0-1.0 [facility] Comment on above: Performed By: #### O SMO, LD, MG, JESUS, TSHX, LIVP, B12FOL, LACTIC, FT4, BMP #### [address] [address] Policy Checker: Tato Ibarra MD Bilirubin.indirect [Mass/Vol] 0.2 mg/dL Normal 0.0-0.2 [facility] Comment on above: Performed By: #### O SMO, LD, MG, JESUS, TSHX, LIVP, B12FOL, LACTIC, FT4, BMP #### [facility] [address] [place] [address] [id number] Policy Checker: Tato Ibarra MD Globulin (S) [Mass/Vol] 2.2 g/dL Normal [facility] Comment on above: Performed By: #### O SMO, LD, MG, JESUS, TSHX, LIVP, B12FOL, LACTIC, FT4, BMP #### [facility] [address] [place] [address] [phone] Policy Checker: Tato Ibarra MD Protein [Mass/Vol] 5.2 g/dL Low 6.6-8.7 [facility] Comment on above: Performed By: #### O SMO, LD, MG, JESUS, TSHX, LIVP, B12FOL, LACTIC, FT4, BMP #### [facility] [address] [place] [id number] Policy Checker: Tato Ibarra MD Magnesiumon 1 Magnesium [Mass/Vol] 1.9 mg/dL 1.6 - 2.6 mg/dL [facility] Magnesium [Mass/Vol] 1.9 mg/dL Normal 1.6-2.6 [facility] Comment on above: Performed By: #### O SMO, LD, MG, JESUS, TSHX, LIVP, B12FOL, LACTIC, FT4, BMP #### [facility] [address] [place] [address] [phone] Policy Checker: Tato Ibarra MD No Panel Informationon 12-30 [facility] Interpretation and review of laboratory results Abnormal [facility] [facility] Osmolalityon 12-31-2023 Osmolality [Osmolality] 278 mosm/kg [facility] Osmolality [Osmolality] 278 mosm/kg Normal 275-295 [facility] Comment on above: Performed By: #### O SMO, LD, MG, JESUS, TSHX, LIVP, B12FOL, LACTIC, FT4, BMP #### [address] [address] Policy Checker: Tato Ibarra MD PTon 12-31-2023 INR Coag (PPP) [Relative time] 0.9 {INR} Normal [facility] Comment on above: Result Comment: Therapeutic Range: Moderate Anticoagulant Intensity: INR = 2.0-3.0 High Anticoagulant Intensity: INR = 2.5-3.5 Performed By: #### O SMO, LD, MG, JESUS, TSHX, LIVP, B12FOL, LACTIC, FT4, BMP #### [place] [phone] Policy Checker: Tato Ibarra MD PT Coag (PPP) [Time] 11.9 s Normal 11.7-14.9 [facility] Comment on above: Performed By: #### O SMO, LD, MG, JESUS, TSHX, LIVP, B12FOL, LACTIC, FT4, BMP #### [address] [phone] Policy Checker: Tato Ibarra MD INR Coag (PPP) [Relative time] 0.9 {INR} Normal [facility] Comment on above: Result Comment: Therapeutic Range: Moderate Anticoagulant Intensity: INR = 2.0-3.0 High Anticoagulant Intensity: INR = 2.5-3.5 Performed By: #### O SMO, LD, MG, JESUS, TSHX, LIVP, B12FOL, LACTIC, FT4, BMP #### [address] [phone] Policy Checker: Tato Ibarra MD PT Coag (PPP) [Time] 11.8 s Normal 11.7-14.9 [facility] Comment on above: Performed By: #### O SMO, LD, MG, JESUS, TSHX, LIVP, B12FOL, LACTIC, FT4, BMP #### [facility] [place], [place] [phone] Policy Checker: Tato Ibarra MD Phosphoruson 12-31-2023 Phosphate [Mass/Vol] 3.7 mg/dL 2.5 - 4.5 mg/dL [facility] [employer] Phosphorus, Inorg.on 024 Phosphorus, Inorg. 3.7 mg/dL Normal 2.5-4.5 [facility] Comment on above: Performed By: #### O SMO, LD, MG, JESUS, TSHX, LIVP, B12FOL, LACTIC, FT4, BMP #### [facility] [address] [place] [phone] Policy Checker: Tato Ibarra MD Protime-INRon 12-31-2023 INR Coag (PPP) [Relative time] 0.9 {INR} [facility] Comment on above: Therapeutic Range: Moderate Anticoagulant Intensity: INR = 2.0-3.0 High Anticoagulant Intensity: INR = 2.5-3.5 PT Coag (PPP) [Time] 11.9 s [facility] [employer] INR Coag (PPP) [Relative time] 0.9 {INR} [facility] Comment on above: Therapeutic Range: Moderate Anticoagulant Intensity: INR = 2.0-3.0 High Anticoagulant Intensity: INR = 2.5-3.5 PT Coag (PPP) [Time] 11.8 s [facility] [employer] SODIUM, URINE, RANDOMon Sodium (U) [Moles/Vol] 121 mmol/L [facility] [employer] Comment on above: No normal range esta blished. Sodium, Random Uron 12-31-19 Sodium (U) [Moles/Vol] 121 mmol/L Normal [facility] Comment on above: Result Comment: No n ormal range established. Performed By: #### O SMO, LD, MG, JESUS, TSHX, LIVP, B12FOL, LACTIC, FT4, BMP #### [address] [address] Policy Checker: Tato Ibarra MD Stool PCR Batteryon 12-31-19 24 Campylobacter sp PCR NEGATIVE: No Campylobacter spp. (jejuni or coli) DNA Detected Normal CAMNEG [facility] Comment on above: Performed By: #### P TT, PT #### [facility] [employer] [address] [place] [phone] Policy Checker: Tato Ibarra MD E coli enterotox PCR NEGATIVE: No Enterotoxigenic E. coli (ETEC) Heat-labile and heat-stable (LT/ST) Normal EECNEG [facility] Comment on above: Result Comment: DNA Detected Performed By: #### P TT, PT #### [address] [address] Policy Checker: Tato Ibarra MD Plesiomonas sp PCR Negative Normal PLENEG [facility] Comment on above: Performed By: #### P TT, PT #### [facility] [employer] [address] [place] [phone] Policy Checker: Tato Ibarra MD Salmonella sp PCR Negative Normal SALNEG [facility] Comment on above: Performed By: #### P TT, PT #### [address] [id number] Policy Checker: Tato Ibarra MD Shigatoxin gene PCR Negative Normal STXNEG [facility] Comment on above: Performed By: #### P TT, PT #### [facility] [employer] [address] [place] [phone] Policy Checker: Tato Ibarra MD Shigella sp PCR Negative Normal SHINEG [facility] Comment on above: Performed By: #### P TT, PT #### [facility] [employer] [address] [place] [phone] Policy Checker: Tato Ibarra MD Vibrio sp PCR NEGATIVE: No Vibrio (V. vulnificus, V, parahaemolyticus and V. cholerae) DNA Normal VIBNEG [facility] Comment on above: Result Comment: Dete cted Performed By: #### P TT, PT #### [address] [phone] Policy Checker: Tato Ibarra MD Yersinia gene PCR Negative Normal YERNEG [facility] Comment on above: Performed By: #### P TT, PT #### [address] [address] Policy Checker: Tato Ibarra MD T4, Freeon 12-31-2023 Free T4 [Mass/Vol] 0.8 ng/dL Low 0.92 - 1.68 ng/dL [facility] Interpretation and review of laboratory results Abnormal [facility] TSH w/reflex to FT4on 2023 Thyroid Stim. Horm. 6.81 uIU/mL High 0.27-4.20 [facility] Comment on above: Performed By: #### O SMO, LD, MG, JESUS, TSHX, LIVP, B12FOL, LACTIC, FT4, BMP #### [address] [phone] Policy Checker: Tato Ibarra MD TSH with Reflexon 12-31-2023 TSH Qn 6.81 m[IU]/L High [facility] Thyroxine, Freeon 12-31-2023 Thyroxine, Free 0.8 ng/dL Low 0.92-1.68 [facility] Comment on above: Performed By: #### P TT, PT #### [address] [address] Policy Checker: Tato Ibarra MD UA w/Reflex Cultureon 2023 Bilirubin, SemiQt,Ur Negative Normal NEG [facility] Comment on above: Performed By: #### O SMO, LD, MG, JESUS, TSHX, LIVP, B12FOL, LACTIC, FT4, BMP #### [facility] [address] [place] [phone] Policy Checker: Tato Ibarra MD Blood, Urine Negative Normal NEG [facility] Comment on above: Performed By: #### O SMO, LD, MG, JESUS, TSHX, LIVP, B12FOL, LACTIC, FT4, BMP #### [facility] [address] [place] [phone] Policy Checker: Tato Ibarra MD Clarity (U) Clear Normal CLEAR [facility] Comment on above: Performed By: #### O SMO, LD, MG, JESUS, TSHX, LIVP, B12FOL, LACTIC, FT4, BMP #### [facility] [address] [place] [phone] Policy Checker: Tato Ibarra MD Color (U) Yellow Normal YEL [facility] Comment on above: Performed By: #### O SMO, LD, MG, JESUS, TSHX, LIVP, B12FOL, LACTIC, FT4, BMP #### [facility] [address] [place] [phone] Policy Checker: Tato Ibarra MD Comment Microscopic exam not performed based on chemical results unless requested in Normal [facility] Comment on above: Result Comment: orig inal order. Performed By: #### O SMO, LD, MG, JESUS, TSHX, LIVP, B12FOL, LACTIC, FT4, BMP #### [facility] [address] [place] [phone] Policy Checker: Tato Ibarra MD Glucose Ql (U) Negative Normal NEG [facility] Comment on above: Performed By: #### O SMO, LD, MG, JESUS, TSHX, LIVP, B12FOL, LACTIC, FT4, BMP #### [facility] [address] [place] [phone] Policy Checker: Tato Ibarra MD Ketones Ql (U) Negative Normal NEG [facility] Comment on above: Performed By: #### O SMO, LD, MG, JESUS, TSHX, LIVP, B12FOL, LACTIC, FT4, BMP #### [address] [address] Policy Checker: Tato Ibarra MD Leukocyte esterase Test strip Ql (U) Negative Normal NEG [facility] Comment on above: Performed By: #### O SMO, LD, MG, JESUS, TSHX, LIVP, B12FOL, LACTIC, FT4, BMP #### [address] [address] Policy Checker: Tato Ibarra MD Nitrite,Ur Negative Normal NEG [facility] Comment on above: Performed By: #### O SMO, LD, MG, JESUS, TSHX, LIVP, B12FOL, LACTIC, FT4, BMP #### [address] [address] Policy Checker: Tato Ibarra MD PH,Ur 5.5 Normal 5.0-8.0 [facility] Comment on above: Performed By: #### O SMO, LD, MG, JESUS, TSHX, LIVP, B12FOL, LACTIC, FT4, BMP #### [address] [address] Policy Checker: Tato Ibarra MD Protein Ql (U) Negative Normal NEG [facility] Comment on above: Performed By: #### O SMO, LD, MG, JESUS, TSHX, LIVP, B12FOL, LACTIC, FT4, BMP #### [address] [address] Policy Checker: Tato Ibarra MD Spec. [place],Ur 1.007 Normal 1.005-1.030 [facility] Comment on above: Performed By: #### O SMO, LD, MG, JESUS, TSHX, LIVP, B12FOL, LACTIC, FT4, BMP #### [facility] [address] [place], [place] [phone] Policy Checker: Tato Ibarra MD Urobilinogen,Ur Normal Normal 0.0-1.0 [facility] Comment on above: Performed By: #### O SMO, LD, MG, JESUS, TSHX, LIVP, B12FOL, LACTIC, FT4, BMP #### [facility] [address] [place], [place] [phone] Policy Checker: Tato Ibarra MD Urinalysis with Reflex to Cu ltureon 12-31-2023 Bilirubin Ql (U) Negative [facility]IVE [facility] Clarity (U) Clear Clear [facility] Color (U) Yellow Yellow [facility] Comment Microscopic exam not performed based on chemical results unless requested in original order. [facility] Glucose Test strip (U) [Mass/Vol] Negative NEGATIVE mg/dL [facility] Hemoglobin Auto test strip Ql (U) Negative NEGATIVE [facility] Ketones (U) [Mass/Vol] Negative NEGATIVE mg/dL [facility] Leukocyte esterase Test strip Ql (U) Negative NEGATIVE [facility] Nitrite Ql (U) Negative NEGATIVE [facility] pH (U) 5.5 [pH] 5.0 - 8.0 [facility] Protein (U) [Mass/Vol] Negative NEGATIVE mg/dL [facility] Specific gravity (U) [Rel density] 1.007 1.005 - 1.030 [facility] Urobilinogen Qn (U) Normal 0.0 - 1.0 EU/dL [facility] Vitamin B12 & Folateon 12-30 Cobalamin (Vitamin B12) [Mass/Vol] 271 pg/mL 232 - 1245 pg/mL [facility] Folate [Mass/Vol] 5.4 ng/mL 4.8 - 24.2 ng/mL [facility] Basophils Auto (Bld) [#/Vol] on 12-30-2023 Basophils (Bld) [#/Vol] 0.0 10 3/uL 0.0-0.1 [facility] Basophils/100 WBC Auto (Bld) on 12-30-2023 Basophils/100 WBC (Bld) 0.7 % 0.2-2.0 [facility] Eosinophils/100 WBC Auto (Bl d)on 12-30-2023 Eosinophils/100 WBC (Bld) 2.7 % 0.9-7.0 [facility] Erythrocyte distribution wid th Auto (RBC) [Ratio]on 12-30-2023 Erythrocyte distribution width (RBC) [Ratio] 15.0 % 11.0-15.0 [facility] Estimated glomerular filtrat ion rate (GFR) non- Americanon 12-30-2023 GFR/1.73 sq M.predicted among non-blacks MDRD (S/P/Bld) [Vol rate/Area] mL/min/{1.73_m2} >=60 [facility] Globulin Calc (S) [Mass/Vol] on 12-30-2023 Globulin (S) [Mass/Vol] 2.6 g/dL [facility] Hematocrit Auto (Bld) [Volum e fraction]on 12-30-2023 Hematocrit (Bld) [Volume fraction] 35.2 % Low 36.0-48.0 [facility] Hemoglobin [Mass/volume] in Bloodon 12-30-2023 Hemoglobin (Bld) [Mass/Vol] 11.8 g/dL Low 12.0-16.0 [facility] Hemoglobin and Hematocriton 12-30-2023 Hematocrit (Bld) [Volume fraction] 34.2 % Low 36.3 - 47.1 % [facility] Hemoglobin (Bld) [Mass/Vol] 11.0 g/dL Low 11.9 - 15.1 g/dL [facility] Interpretation and review of laboratory results Abnormal [facility] Hgb/Hcton 12-30-2023 Hematocrit (Bld) [Volume fraction] 34.2 % Low 36.3-47.1 [facility] Comment on above: Performed By: #### O SMO, LD, MG, EJSUS, TSHX, LIVP, B12FOL, LACTIC, FT4, BMP #### [facility] [address] [place] [address] Policy Checker: Tato Ibarra MD Hemoglobin (Bld) [Mass/Vol] 11.0 g/dL Low 11.9-15.1 [facility] Comment on above: Performed By: #### O SMO, LD, MG, JESUS, TSHX, LIVP, B12FOL, LACTIC, FT4, BMP #### [facility] [address] [place], [place] [phone] Policy Checker: Tato Ibarra MD Laboratory - Chemistry and C hemistry - challengeon 12-30-2023 Albumin [Mass/Vol] 1.9 g/dL Low 3.4-5.0 [facility] ALP [Catalytic activity/Vol] 149 U/L High 46-116 [facility] ALT [Catalytic activity/Vol] 18 U/L 14-59 [facility] AST [Catalytic activity/Vol] 34 U/L 15-37 [facility] Bilirubin [Mass/Vol] 0.3 mg/dL 0.2-1.0 [facility] Calcium [Mass/Vol] 8.3 mg/dL Low 8.5-10.1 [facility] Chloride [Moles/Vol] 107 mmol/L 98-107 [facility] CO2 [Moles/Vol] 25.6 mmol/L 21.0-32.[address] [facility] Creatinine [Mass/Vol] 0.41 mg/dL Low 0.55-1.02 [facility] GFR/1.73 sq M.predicted MDRD (S/P/Bld) [Vol rate/Area] mL/min/{1.73_m2} >=60 [facility] Glucose [Mass/Vol] 85 mg/dL 74-106 [facility] Potassium [Moles/Vol] 3.2 mmol/L Low 3.5-5.1 [facility] Protein [Mass/Vol] 4.5 g/dL Low 6.4-8.2 [facility] Sodium [Moles/Vol] 141 mmol/L 136-145 [facility] Urea nitrogen [Mass/Vol] mg/dL Low 7.0-18.0 [facility] Urea nitrogen/Creatinine [Mass ratio] 2.4 mg/mg [facility] Laboratory - Hematology and Cell countson 12-30-2023 Immature granulocytes/100 WBC (Bld) 0.2 % 0.0-0.5 [facility] Leukocytes [#/volume] correc patty for nucleated erythrocytes in Blood by Automated counon 12-30-2023 WBC corrected for nucl RBC Auto (Bld) [#/Vol] 4.0 10 3/uL 4.0-11.0 [facility] Lymphocytes Auto (Bld) [#/Vo l]on 12-30-2023 Lymphocytes (Bld) [#/Vol] 1.3 10 3/uL 1.2-3.8 [facility] Lymphocytes/100 WBC Auto (Bl d)on 12-30-2023 Lymphocytes/100 WBC (Bld) 32.9 % 20.5-60.0 [facility] MCH Auto (RBC) [Entitic mass ]on 12-30-2023 MCH (RBC) [Entitic mass] 35.4 pg High 26.7-34.0 [facility] MCHC Auto (RBC) [Mass/Vol]on 12-30-2023 MCHC (RBC) [Mass/Vol] 33.2 g/dL 29.9-35.2 [facility] MCV Auto (RBC) [Entitic vol] on 12-30-2023 MCV (RBC) [Entitic vol] 106.7 fL High 81.0-99.0 [facility] Monocytes Auto (Bld) [#/Vol] on 12-30-2023 Monocytes (Bld) [#/Vol] 0.3 10 3/uL 0.3-0.8 [facility] Monocytes/100 WBC Auto (Bld) on 12-30-2023 Monocytes/100 WBC (Bld) 7.9 % 1.7-12.0 [facility] Neutrophils Auto (Bld) [#/Vo l]on 12-30-2023 Neutrophils (Bld) [#/Vol] 2.2 10 3/uL 1.4-6.5 [facility] Neutrophils/100 WBC Auto (Bl d)on 12-30-2023 Neutrophils/100 WBC (Bld) 55.6 % 43.0-75.0 [facility] No Panel Informationon 12-29 Eosinophils # (Auto) 0.1 10 3/uL 0.0-0.7 [facility] Immature Granulocyte # (Auto) 0.01 10 3/uL 0.00-0.03 [facility] Platelet mean volume Auto (B ld) [Entitic vol]on 12-30-2023 Platelet mean volume (Bld) [Entitic vol] 9.4 fL Low 9.5-13.5 [facility] Platelets Auto (Bld) [#/Vol] on 12-30-2023 Platelets (Bld) [#/Vol] 175 10 3/uL 150-450 [facility] RBC Auto (Bld) [#/Vol]on RBC (Bld) [#/Vol] 2.09 10 6/uL Low 4.20-5.40 [facility] Serum or plasma albumin/glob ulin mass ratioon 12-30-2023 Albumin/Globulin [Mass ratio] 0.7 {ratio} [facility] Serum or plasma anion gap de terminationon 12-30-2023 Anion gap [Moles/Vol] 11.6 mmol/L [facility] Basophils Auto (Bld) [#/Vol] on 12-29-2023 Basophils (Bld) [#/Vol] 0.0 10 3/uL 0.0-0.1 [facility] Basophils/100 WBC Auto (Bld) on 12-29-2023 Basophils/100 WBC (Bld) 0.8 % 0.2-2.0 [facility] Eosinophils/100 WBC Auto (Bl d)on 12-29-2023 Eosinophils/100 WBC (Bld) 1.4 % 0.9-7.0 [facility] Erythrocyte distribution wid th Auto (RBC) [Ratio]on 12-29-2023 Erythrocyte distribution width (RBC) [Ratio] 15.1 % High 11.0-15.0 [facility] Estimated glomerular filtrat ion rate (GFR) non- Americanon 12-29-2023 GFR/1.73 sq M.predicted among non-blacks MDRD (S/P/Bld) [Vol rate/Area] mL/min/{1.73_m2} >=60 [facility] Globulin Calc (S) [Mass/Vol] on 12-29-2023 Globulin (S) [Mass/Vol] 2.8 g/dL [facility] Hematocrit Auto (Bld) [Volum e fraction]on 12-29-2023 Hematocrit (Bld) [Volume fraction] 24.3 % Low 36.0-48.0 [facility] Hemoglobin [Mass/volume] in Bloodon 12-29-2023 Hemoglobin (Bld) [Mass/Vol] 8.1 g/dL Low 12.0-16.0 [facility] Laboratory - Chemistry and C hemistry - challengeon 12-29-2023 Albumin [Mass/Vol] 2.0 g/dL Low 3.4-5.0 [facility] ALP [Catalytic activity/Vol] 166 U/L High 46-116 [facility] ALT [Catalytic activity/Vol] 17 U/L 14-59 [facility] AST [Catalytic activity/Vol] 30 U/L 15-37 [facility] Bilirubin [Mass/Vol] 0.4 mg/dL 0.2-1.0 [facility] Calcium [Mass/Vol] 8.4 mg/dL Low 8.5-10.1 [facility] Chloride [Moles/Vol] 104 mmol/L 98-107 [facility] CO2 [Moles/Vol] 28.3 mmol/L 21.0-32.[address] [facility] Creatinine [Mass/Vol] 0.52 mg/dL Low 0.55-1.02 [facility] GFR/1.73 sq M.predicted MDRD (S/P/Bld) [Vol rate/Area] mL/min/{1.73_m2} >=60 [facility] Glucose [Mass/Vol] 91 mg/dL 74-106 [facility] Potassium [Moles/Vol] 3.8 mmol/L 3.5-5.1 [facility] Protein [Mass/Vol] 4.8 g/dL Low 6.4-8.2 [facility] Sodium [Moles/Vol] 136 mmol/L 136-145 [facility] Urea nitrogen [Mass/Vol] 6.0 mg/dL Low 7.0-18.0 [facility] Urea nitrogen/Creatinine [Mass ratio] 11.5 mg/mg [facility] Laboratory - Hematology and Cell countson 12-29-2023 Immature granulocytes/100 WBC (Bld) 0.2 % 0.0-0.5 [facility] Leukocytes [#/volume] correc patty for nucleated erythrocytes in Blood by Automated counon 12-29-2023 WBC corrected for nucl RBC Auto (Bld) [#/Vol] 4.8 10 3/uL 4.0-11.0 [facility] Lymphocytes Auto (Bld) [#/Vo l]on 12-29-2023 Lymphocytes (Bld) [#/Vol] 1.7 10 3/uL 1.2-3.8 [facility] Lymphocytes/100 WBC Auto (Bl d)on 12-29-2023 Lymphocytes/100 WBC (Bld) 35.1 % 20.5-60.0 [facility] MCH Auto (RBC) [Entitic mass ]on 12-29-2023 MCH (RBC) [Entitic mass] 36.2 pg High 26.7-34.0 [facility] MCHC Auto (RBC) [Mass/Vol]on 12-29-2023 MCHC (RBC) [Mass/Vol] 33.5 g/dL 29.9-35.2 [facility] MCV Auto (RBC) [Entitic vol] on 12-29-2023 MCV (RBC) [Entitic vol] 108.2 fL High 81.0-99.0 [facility] Monocytes Auto (Bld) [#/Vol] on 12-29-2023 Monocytes (Bld) [#/Vol] 0.6 10 3/uL 0.3-0.8 [facility] Monocytes/100 WBC Auto (Bld) on 12-29-2023 Monocytes/100 WBC (Bld) 11.6 % 1.7-12.0 [facility] Neutrophils Auto (Bld) [#/Vo l]on 12-29-2023 Neutrophils (Bld) [#/Vol] 2.5 10 3/uL 1.4-6.5 [facility] Neutrophils/100 WBC Auto (Bl d)on 12-29-2023 Neutrophils/100 WBC (Bld) 50.9 % 43.0-75.0 [facility] No Panel Informationon 12-28 Eosinophils # (Auto) 0.1 10 3/uL 0.0-0.7 [facility] Immature Granulocyte # (Auto) 0.01 10 3/uL 0.00-0.03 [facility] Platelet mean volume Auto (B ld) [Entitic vol]on 12-29-2023 Platelet mean volume (Bld) [Entitic vol] 9.5 fL 9.5-13.5 [facility] Platelets Auto (Bld) [#/Vol] on 12-29-2023 Platelets (Bld) [#/Vol] 204 10 3/uL 150-450 [facility] RBC Auto (Bld) [#/Vol]on RBC (Bld) [#/Vol] 2.32 10 6/uL Low 4.20-5.40 [facility] Serum or plasma albumin/glob ulin mass ratioon 12-29-2023 Albumin/Globulin [Mass ratio] 0.7 {ratio} [facility] Serum or plasma anion gap de terminationon 12-29-2023 Anion gap [Moles/Vol] 7.5 mmol/L [facility] Basophils Auto (Bld) [#/Vol] on 12-28-2023 Basophils (Bld) [#/Vol] 0.0 10 3/uL 0.0-0.1 [facility] Basophils/100 WBC Auto (Bld) on 12-28-2023 Basophils/100 WBC (Bld) 0.3 % 0.2-2.0 [facility] Eosinophils/100 WBC Auto (Bl d)on 12-28-2023 Eosinophils/100 WBC (Bld) 0.2 % Low 0.9-7.0 [facility] Erythrocyte distribution wid th Auto (RBC) [Ratio]on 12-28-2023 Erythrocyte distribution width (RBC) [Ratio] 14.6 % 11.0-15.0 [facility] Estimated glomerular filtrat ion rate (GFR) non- Americanon 12-28-2023 GFR/1.73 sq M.predicted among non-blacks MDRD (S/P/Bld) [Vol rate/Area] mL/min/{1.73_m2} >=60 [facility] Globulin Calc (S) [Mass/Vol] on 12-28-2023 Globulin (S) [Mass/Vol] 3.4 g/dL [facility] Hematocrit Auto (Bld) [Volum e fraction]on 12-28-2023 Hematocrit (Bld) [Volume fraction] 27.1 % Low 36.0-48.0 [facility] Hemoglobin [Mass/volume] in Bloodon 12-28-2023 Hemoglobin (Bld) [Mass/Vol] 9.1 g/dL Low 12.0-16.0 [facility] Hemoglobin.gastrointestinal [Presence] in Stoolon 12-28-2023 Hemoglobin.gastroint estinal Ql (Stl) Positive Abnormal [facility] INR in Platelet poor plasma by Coagulation assayon 12-28-2023 INR Coag (PPP) [Relative time] {INR} [facility] Comment on above: DESIRED INR:2.0-3.0 CONDITIONS NOT LISTED BELOW2.5-3.5 FOR PROSTHETIC HEART VALVE REPLACEMENT2.5-3.5 RECURRENT THROMBOSIS Laboratory - Chemistry and C hemistry - challengeon 12-28-2023 Calcium [Mass/Vol] 8.4 mg/dL Low 8.5-10.1 [facility] Chloride [Moles/Vol] 101 mmol/L 98-107 [facility] CO2 [Moles/Vol] 25.4 mmol/L 21.0-32.[address] [facility] Creatinine [Mass/Vol] 0.57 mg/dL 0.55-1.02 [facility] GFR/1.73 sq M.predicted MDRD (S/P/Bld) [Vol rate/Area] mL/min/{1.73_m2} >=60 [facility] Glucose [Mass/Vol] 102 mg/dL 74-106 [facility] Potassium [Moles/Vol] 3.7 mmol/L 3.5-5.1 [facility] Sodium [Moles/Vol] 133 mmol/L Low 136-145 [facility] Urea nitrogen [Mass/Vol] 8.0 mg/dL 7.0-18.0 [facility] Urea nitrogen/Creatinine [Mass ratio] 14.0 mg/mg [facility] Bilirubin Ql (U) Negative NEGATIVE [facility] Glucose (U) [Mass/Vol] Negative NEGATIVE [facility] Ketones Ql (U) Negative NEGATIVE [facility] pH (U) 6.0 [pH] 5.0-9.0 [facility] Sodium (U) [Moles/Vol] 13 mmol/L Low 30-90 [facility] Specific gravity (U) [Rel density] <=1.005 Abnormal 1.005-1.025 [facility] Urobilinogen Qn (U) 0.2 {[place]'U}/dL 0.2-1.0 [facility] Lactate [Moles/Vol] 2.1 mmol/L High 0.4-2.0 [facility] Comment on above: RESULTS CALLED TO KATERIN LEARY RN Albumin [Mass/Vol] 2.2 g/dL Low 3.4-5.0 [facility] ALP [Catalytic activity/Vol] 219 U/L High 46-116 [facility] ALT [Catalytic activity/Vol] 21 U/L 14-59 [facility] AST [Catalytic activity/Vol] 45 U/L High 15-37 [facility] Bilirubin [Mass/Vol] 0.5 mg/dL 0.2-1.0 [facility] Protein [Mass/Vol] 5.6 g/dL Low 6.4-8.2 [facility] Laboratory - Hematology and Cell countson 12-28-2023 Immature granulocytes/100 WBC (Bld) 0.3 % 0.0-0.5 [facility] - Specimen inform ationon 12-28-2023 Appearance (U) CLEAR CLEAR [facility] Color (U) LT. YELLOW YELLOW [facility] - Urinalysison Leukocyte esterase Test strip Ql (U) Negative NEGATIVE [facility] Nitrite Ql (U) Negative NEGATIVE [facility] Protein Ql (U) Negative NEG/TRACE [facility] Leukocytes [#/volume] correc patty for nucleated erythrocytes in Blood by Automated counon 12-28-2023 WBC corrected for nucl RBC Auto (Bld) [#/Vol] 10.1 10 3/uL 4.0-11.0 [facility] Lymphocytes Auto (Bld) [#/Vo l]on 12-28-2023 Lymphocytes (Bld) [#/Vol] 2.9 10 3/uL 1.2-3.8 [facility] Lymphocytes/100 WBC Auto (Bl d)on 12-28-2023 Lymphocytes/100 WBC (Bld) 28.7 % 20.5-60.0 [facility] MCH Auto (RBC) [Entitic mass ]on 12-28-2023 MCH (RBC) [Entitic mass] 35.6 pg High 26.7-34.0 [facility] MCHC Auto (RBC) [Mass/Vol]on 12-28-2023 MCHC (RBC) [Mass/Vol] 34.4 g/dL 29.9-35.2 [facility] MCV Auto (RBC) [Entitic vol] on 12-28-2023 MCV (RBC) [Entitic vol] 103.6 fL High 81.0-99.0 [facility] Monocytes Auto (Bld) [#/Vol] on 12-28-2023 Monocytes (Bld) [#/Vol] 0.7 10 3/uL 0.3-0.8 [facility] Monocytes/100 WBC Auto (Bld) on 12-28-2023 Monocytes/100 WBC (Bld) 6.8 % 1.7-12.0 [facility] Neutrophils Auto (Bld) [#/Vo l]on 12-28-2023 Neutrophils (Bld) [#/Vol] 6.4 10 3/uL 1.4-6.5 [facility] Neutrophils/100 WBC Auto (Bl d)on 12-28-2023 Neutrophils/100 WBC (Bld) 63.7 % 43.0-75.0 [facility] No Panel Informationon 12-27 Urine Microscopic Review NO [facility] Urine Occult Blood Negative NEGATIVE [facility] Urine Osmolality 161 mOsmol/kg . [facility] Comment on above: 24 hr : 300 - 900 Ra ndom: 50 - 1400 After 12hr fluid restriction: >850Performed at: - [facility] [id number] Director: Ab Giordano MD, Phone: [phone] Urine Random Creatinine <13.00 mg/dL Low 20.00-300.00 [facility] Eosinophils # (Auto) 0.0 10 3/uL 0.0-0.7 [facility] Immature Granulocyte # (Auto) 0.03 10 3/uL 0.00-0.03 [facility] Troponin I High Sensitivity <4.0 pg/mL Low 4.0-51.3 [facility] Comment on above: CUT-OFF POINTS HAVE [...] Damaris Coffey on 12-28-2023 Blood Culture 2 [facility] Blood Culture 1 [facility] Platelet mean volume Auto (B ld) [Entitic vol]on 12-28-2023 Platelet mean volume (Bld) [Entitic vol] 9.8 fL 9.5-13.5 [facility] Platelets Auto (Bld) [#/Vol] on 12-28-2023 Platelets (Bld) [#/Vol] 315 10 3/uL 150-450 [facility] Prothrombin time (PT)on PT Coag (PPP) [Time] 9.6 s 9.0-11.6 [facility] RBC Auto (Bld) [#/Vol]on RBC (Bld) [#/Vol] 3.09 10 6/uL Low 4.20-5.40 [facility] Serum or plasma albumin/glob ulin mass ratioon 12-28-2023 Albumin/Globulin [Mass ratio] 0.6 {ratio} [facility] Serum or plasma anion gap de terminationon 12-28-2023 Anion gap [Moles/Vol] 10.3 mmol/L [facility] Basophils Auto (Bld) [#/Vol] on 11-10-2023 Basophils (Bld) [#/Vol] 0.0 10 3/uL 0.0-0.1 [facility] Basophils/100 WBC Auto (Bld) on 11-10-2023 Basophils/100 WBC (Bld) 0.5 % 0.2-2.0 [facility] Eosinophils/100 WBC Auto (Bl d)on 11-10-2023 Eosinophils/100 WBC (Bld) 0.1 % Low 0.9-7.0 [facility] Erythrocyte distribution wid th Auto (RBC) [Ratio]on 11-10-2023 Erythrocyte distribution width (RBC) [Ratio] 12.7 % 11.0-15.0 [facility] Estimated glomerular filtrat ion rate (GFR) non- Americanon 11-10-2023 GFR/1.73 sq M.predicted among non-blacks MDRD (S/P/Bld) [Vol rate/Area] 58 mL/min/{1.73_m2} Low >=60 [facility] Globulin Calc (S) [Mass/Vol] on 11-10-2023 Globulin (S) [Mass/Vol] 3.6 g/dL [facility] Hematocrit Auto (Bld) [Volum e fraction]on 11-10-2023 Hematocrit (Bld) [Volume fraction] 38.3 % 36.0-48.0 [facility] Hemoglobin [Mass/volume] in Bloodon 11-10-2023 Hemoglobin (Bld) [Mass/Vol] 13.2 g/dL 12.0-16.0 [facility] INR in Platelet poor plasma by Coagulation assayon 11-10-2023 INR Coag (PPP) [Relative time] {INR} [facility] Comment on above: DESIRED INR:2.0-3.0 CONDITIONS NOT LISTED BELOW2.5-3.5 FOR PROSTHETIC HEART VALVE REPLACEMENT2.5-3.5 RECURRENT THROMBOSIS Laboratory - Chemistry and C hemistry - challengeon 11-10-2023 Albumin [Mass/Vol] 3.0 g/dL Low 3.4-5.0 [facility] ALP [Catalytic activity/Vol] 232 U/L High 46-116 [facility] ALT [Catalytic activity/Vol] 23 U/L 14-59 [facility] AST [Catalytic activity/Vol] 82 U/L High 15-37 [facility] Bilirubin [Mass/Vol] 0.6 mg/dL 0.2-1.0 [facility] Calcium [Mass/Vol] 9.3 mg/dL 8.5-10.1 [facility] Chloride [Moles/Vol] 97 mmol/L Low 98-107 [facility] CO2 [Moles/Vol] 25.7 mmol/L 21.0-32.[address] [facility] Creatinine [Mass/Vol] 0.99 mg/dL 0.55-1.02 [facility] GFR/1.73 sq M.predicted MDRD (S/P/Bld) [Vol rate/Area] mL/min/{1.73_m2} >=60 [facility] Glucose [Mass/Vol] 113 mg/dL High 74-106 [facility] Lipase [Catalytic activity/Vol] 16.0 U/L 16.0-77.0 [facility] Potassium [Moles/Vol] 3.0 mmol/L Low 3.5-5.1 [facility] Protein [Mass/Vol] 6.6 g/dL 6.4-8.2 [facility] Sodium [Moles/Vol] 133 mmol/L Low 136-145 [facility] Urea nitrogen [Mass/Vol] 4.0 mg/dL Low 7.0-18.0 [facility] Urea nitrogen/Creatinine [Mass ratio] 4.0 mg/mg [facility] Laboratory - Hematology and Cell countson 11-10-2023 Immature granulocytes/100 WBC (Bld) 0.4 % 0.0-0.5 [facility] Leukocytes [#/volume] correc patty for nucleated erythrocytes in Blood by Automated counon 11-10-2023 WBC corrected for nucl RBC Auto (Bld) [#/Vol] 7.3 10 3/uL 4.0-11.0 [facility] Lymphocytes Auto (Bld) [#/Vo l]on 11-10-2023 Lymphocytes (Bld) [#/Vol] 1.3 10 3/uL 1.2-3.8 [facility] Lymphocytes/100 WBC Auto (Bl d)on 11-10-2023 Lymphocytes/100 WBC (Bld) 17.4 % Low 20.5-60.0 [facility] MCH Auto (RBC) [Entitic mass ]on 11-10-2023 MCH (RBC) [Entitic mass] 38.2 pg High 26.7-34.0 [facility] MCHC Auto (RBC) [Mass/Vol]on 11-10-2023 MCHC (RBC) [Mass/Vol] 34.5 g/dL 29.9-35.2 [facility] MCV Auto (RBC) [Entitic vol] on 11-10-2023 MCV (RBC) [Entitic vol] 110.7 fL High 81.0-99.0 [facility] Monocytes Auto (Bld) [#/Vol] on 11-10-2023 Monocytes (Bld) [#/Vol] 0.5 10 3/uL 0.3-0.8 [facility] Monocytes/100 WBC Auto (Bld) on 11-10-2023 Monocytes/100 WBC (Bld) 6.7 % 1.7-12.0 [facility] Neutrophils Auto (Bld) [#/Vo l]on 11-10-2023 Neutrophils (Bld) [#/Vol] 5.5 10 3/uL 1.4-6.5 [facility] Neutrophils/100 WBC Auto (Bl d)on 11-10-2023 Neutrophils/100 WBC (Bld) 74.9 % 43.0-75.0 [facility] No Panel Informationon 11-09 Stool Occult Blood Negative [facility] Eosinophils # (Auto) 0.0 10 3/uL 0.0-0.7 [facility] Immature Granulocyte # (Auto) 0.03 10 3/uL 0.00-0.03 [facility] Troponin I High Sensitivity 11.2 pg/mL 4.0-51.3 [facility] Comment on above: CUT-OFF POINTS HAVE [...] volume (Bld) [Entitic vol] 9.8 fL 9.5-13.5 [facility] Platelets Auto (Bld) [#/Vol] on 11-10-2023 Platelets (Bld) [#/Vol] 305 10 3/uL 150-450 [facility] Prothrombin time (PT)on 10-24 PT Coag (PPP) [Time] 9.7 s 9.0-11.6 [facility] RBC Auto (Bld) [#/Vol]on RBC (Bld) [#/Vol] 3.46 10 6/uL Low 4.20-5.40 [facility] Serum or plasma albumin/glob ulin mass ratioon 11-10-2023 Albumin/Globulin [Mass ratio] 0.8 {ratio} [facility] Serum or plasma anion gap de terminationon 11-10-2023 Anion gap [Moles/Vol] 13.3 mmol/L [facility] Basophils Auto (Bld) [#/Vol] on 09-03-2023 Basophils (Bld) [#/Vol] 0.0 10 3/uL 0.0-0.1 [facility] Basophils/100 WBC Auto (Bld) on 09-03-2023 Basophils/100 WBC (Bld) 0.4 % 0.2-2.0 [facility] Eosinophils/100 WBC Auto (Bl d)on 09-03-2023 Eosinophils/100 WBC (Bld) 0.4 % 0.9-7.0 [facility] Erythrocyte distribution wid th Auto (RBC) [Ratio]on 09-03-2023 Erythrocyte distribution width (RBC) [Ratio] 16.8 % 11.0-15.0 [facility] Estimated glomerular filtrat ion rate (GFR) non- Americanon 09-03-2023 GFR/1.73 sq M.predicted among non-blacks MDRD (S/P/Bld) [Vol rate/Area] 29 mL/min/{1.73_m2} >=60 [facility] Hematocrit Auto (Bld) [Volum e fraction]on 09-03-2023 Hematocrit (Bld) [Volume fraction] 36.0 % 36.0-48.0 [facility] Hemoglobin [Mass/volume] in Bloodon 09-03-2023 Hemoglobin (Bld) [Mass/Vol] 12.3 g/dL 12.0-16.0 [facility] Laboratory - Chemistry and C hemistry - challengeon 09-03-2023 Calcium [Mass/Vol] 9.3 mg/dL 8.5-10.1 [facility] Chloride [Moles/Vol] 98 mmol/L 98-107 [facility] CO2 [Moles/Vol] 23.8 mmol/L 21.0-32.[address] [facility] Creatinine [Mass/Vol] 1.80 mg/dL 0.55-1.02 [facility] GFR/1.73 sq M.predicted MDRD (S/P/Bld) [Vol rate/Area] 36 mL/min/{1.73_m2} >=60 [facility] Glucose [Mass/Vol] 103 mg/dL 74-106 [facility] Potassium [Moles/Vol] 3.2 mmol/L 3.5-5.1 [facility] Sodium [Moles/Vol] 137 mmol/L 136-145 [facility] Urea nitrogen [Mass/Vol] 2.0 mg/dL 7.0-18.0 [facility] Urea nitrogen/Creatinine [Mass ratio] 1.1 mg/mg [facility] Laboratory - Hematology and Cell countson 09-03-2023 Immature granulocytes/100 WBC (Bld) 0.4 % 0.0-0.5 [facility] Leukocytes [#/volume] correc patty for nucleated erythrocytes in Blood by Automated counon 09-03-2023 WBC corrected for nucl RBC Auto (Bld) [#/Vol] 9.9 10 3/uL 4.0-11.0 [facility] Lymphocytes Auto (Bld) [#/Vo l]on 09-03-2023 Lymphocytes (Bld) [#/Vol] 1.7 10 3/uL 1.2-3.8 [facility] Lymphocytes/100 WBC Auto (Bl d)on 09-03-2023 Lymphocytes/100 WBC (Bld) 17.4 % 20.5-60.0 [facility] MCH Auto (RBC) [Entitic mass ]on 09-03-2023 MCH (RBC) [Entitic mass] 36.4 pg 26.7-34.0 [facility] MCHC Auto (RBC) [Mass/Vol]on 09-03-2023 MCHC (RBC) [Mass/Vol] 34.2 g/dL 29.9-35.2 [facility] MCV Auto (RBC) [Entitic vol] on 09-03-2023 MCV (RBC) [Entitic vol] 106.5 fL 81.0-99.0 [facility] Monocytes Auto (Bld) [#/Vol] on 09-03-2023 Monocytes (Bld) [#/Vol] 0.8 10 3/uL 0.3-0.8 [facility] Monocytes/100 WBC Auto (Bld) on 09-03-2023 Monocytes/100 WBC (Bld) 8.0 % 1.7-12.0 [facility] Neutrophils Auto (Bld) [#/Vo l]on 09-03-2023 Neutrophils (Bld) [#/Vol] 7.3 10 3/uL 1.4-6.5 [facility] Neutrophils/100 WBC Auto (Bl d)on 09-03-2023 Neutrophils/100 WBC (Bld) 73.4 % 43.0-75.0 [facility] No Panel Informationon 09-02 Eosinophils # (Auto) 0.0 10 3/uL 0.0-0.7 [facility] Immature Granulocyte # (Auto) 0.04 10 3/uL 0.00-0.03 [facility] Troponin I High Sensitivity 19.5 pg/mL 4.0-51.3 [facility] Comment on above: CUT-OFF POINTS HAVE [...] volume (Bld) [Entitic vol] 9.8 fL 9.5-13.5 [facility] Platelets Auto (Bld) [#/Vol] on 09-03-2023 Platelets (Bld) [#/Vol] 312 10 3/uL 150-450 [facility] RBC Auto (Bld) [#/Vol]on RBC (Bld) [#/Vol] 3.38 10 6/uL 4.20-5.40 [facility] Serum or plasma anion gap de terminationon 09-03-2023 Anion gap [Moles/Vol] 18.4 mmol/L [facility] CT ANGIO CORONARY ART WITH H [...] PM -------- ORIGINAL REPORT -------- Dictation workstation: [id number] Interpreted By: Ibrahima Merlos, STUDY: CT ANGIO CORONARY ART WITH HEARTFLOW IF SCORE >30%; 07/15/2023 12:36 pm INDICATION: Signs/Symptoms:chest pain,angina. COMPARISON: None. ACCESSION NUMBER(S): [id number] ORDERING CLINICIAN: YOSSI HUNTER TECHNIQUE: Using multi-detector [...] gender, and race in asymptomatic patients. [facility] Technician: Dr. Ibrahima Merlos, Date: 07/15/2023 4:40 pm Signed by: Ibrahima Merlos 07/15/2023 4:43 PM Dictation workstation: [id number] [facility] CTA Heart and Coronary arter [...] PM -------- ORIGINAL REPORT -------- Dictation workstation: [id number] [facility] Work Phone: 1. Mild diffuse coronary artery disease without significant stenosis. 2. Coronary artery calcium score 260, 99th percentile for age, gender, and race in asymptomatic patients. [facility] Technician: Dr. Ibrahima Merlos, Date: 07/15/2023 4:40 pm Signed by: Ibrahima Merlos 07/15/2023 4:43 PM Dictation workstation: [id number] Interpreted By: Ibrahima Merlos, STUDY: CT ANGIO CORONARY ART WITH HEARTFLOW IF SCORE >30%; 07/15/2023 12:36 pm INDICATION: Signs/Symptoms:chest pain,angina. COMPARISON: None. ACCESSION NUMBER(S): [id number] ORDERING CLINICIAN: YOSSI HUNTER TECHNIQUE: Using multi-detector [...] There is no pericardial effusion of thickening. MMODAL Ibrahima Merlos DO / Miriam Zuleta MD - 07/15/2023 Interpreted By: Ibrahima Merlos, STUDY: CT ANGIO CORONARY ART WITH HEARTFLOW IF SCORE >30%; 07/15/2023 12:36 pm INDICATION: Signs/Symptoms:chest pain,angina. COMPARISON: None. ACCESSION NUMBER(S): [id number] ORDERING CLINICIAN: YOSSI HUNTER TECHNIQUE: Using multi-detector [...] gender, and race in asymptomatic patients. [facility] Technician: Dr. Ibrahima Merlos, Date: 07/15/2023 4:40 pm Signed by: Ibrahima Merlos 07/15/2023 4:43 PM Dictation workstation: [id number] [facility] Work Phone: Radiology Study observation (narrative) [facility] Work Phone: CTA Heart and Coronary arter ies WO and W contrast IVOrdered By: Miriam Zuleta on 07-15-2023 [facility] Work Phone: Creatinineon 07-15-2023 Creatinine [Mass/Vol] 0.7 mg/dL Normal 0.6-1.[address] [facility] Comment on above: Result Comment: Hydr oxyurea can cause significant interference with creatinine measurement using the i-STAT device. An alternate method of creatinine measurement must be used in patients treated with hydroxyurea. Performed By: #### 2 160-0 #### MIGUEL BRADLEY ([id number]) [facility] ([facility]) [address] [place] [address] Creatinine [Mass/Vol]on 06-27 GFR/1.73 sq M.predicted MDRD (S/P/Bld) [Vol rate/Area] - [facility] Comment on above: Calculations of martin mated GFR are performed using the 2020 CKD-EPI Study Refit equation without the race variable for the IDMS-Traceable Creatinine Methods. https://jasn.asnjournals.org/content/early/ASN.6540403 988 Interpretation and review of laboratory results Normal [facility] GFR/1.73 sq M.predicted MDRD (S/P/Bld) [Vol rate/Area] mL/min/{1.73_m2} Normal >=[address] [facility] Comment on above: Result Comment: Calc ulations of estimated GFR are performed using the 2020 CKD-EPI Study Refit ???equation without the race variable for the IDMS-Traceable Creatinine Methods. https://jasn.asnjournals.org/content/early/ASN.4485047 988 Performed By: #### 2 160-0 #### MIGUEL BRADLEY ([id number]) [facility] ([facility]) [address] [place] [address] Laboratory - Chemistry and C hemistry - challengeon 07-15-2023 Creatinine [Mass/Vol] 0.7 mg/dL 0.6 - 1.3 mg/dL [facility] Comment on above: Hydroxyurea can caus e significant interference with creatinine measurement using the i-STAT device. An alternate method of creatinine measurement must be used in patients treated with hydroxyurea. TRANSTHORACIC ECHO (TTE) COM PLETEon 06-13-2023 TRANSTHORACIC ECHO (TTE) COMPLETE [address], [address] [address] TRANSTHORACIC ECHOCARDIOGRAM REPORT Patient Name: CANDY Mckee Physician: [id number] Ibrahima Serra DO Study Date: 06/13/2023 Ordering Provider: [id number] YOSSI HUNTER MRN/PID: [id number] Fellow: Nurse: Date of /Age: 5 1970 / 52 years Educational Program Assistant: Ibrahima Valdes Gender: F Additional Staff: Height: 162.56 cm Admit Date: 06/13/2023 Weight: 86.18 kg Admission Status: Outpatient BSA: 1.91 m2 Department Location: [facility] Blood Pressure: 110 /60 mmHg Study Type: TRANSTHORACIC ECHO (TTE) COMPLETE Diagnosis/ICD: Shortness of breath-R06.02; Endocarditis, valve unspecified-I38 Indication: SOB, HV Disease, Dizziness, AO Dilation CPT Codes: Echo Complete w Full Doppler-[id number] Patient History: Smoker: Current. Pertinent History: HTN [...] RA Area A4C: 12.5 cm2 RA Major [place] A4C: 4.3 cm AORTA MEASUREMENTS: Normal Ranges: Asc Ao, d: 4.10 cm (2.1-3.4cm) LV SYSTOLIC FUNCT (more content not included)... Normal [facility] US Heart TransthoracicOrdere d By: Ibrahima Serra on 06-13-2023 Aortic Valve Area by Continuity of Peak Velocity 3.48 cm2 [facility] Work Phone: Aortic Valve Area by Continuity of VTI 3.57 cm2 [facility] Work Phone: AV mn grad 3.0 mmHg [facility] Work Phone: AV pk grad 4.7 mmHg [facility] Work Phone: AV pk liya 1.08 m/s [facility] Work Phone: LV A4C EF 55.8 [facility] Work Phone: LV biplane EF 56 % [facility] Work Phone: LVIDd 4.20 cm [facility] Work Phone: LVOT diam 2.20 cm [facility] Work Phone: MV avg E/e' ratio 4.90 [facility] Work Phone: MV E/A ratio 0.62 [facility] Work Phone: RVSP 35.5 mmHg [facility] Work Phone: [facility] Work Phone: Heart Transthoracicon [address], [place] [address] TRANSTHORACIC ECHOCARDIOGRAM REPORT Patient Name: CANDY Mckee Physician: [id number] Ibrahima Serra DO Study Date: 06/13/2023 Ordering Provider: [id number] YOSSI HUNTER MRN/PID: [id number] Fellow: Nurse: Date of /Age: 5 1970 / 52 years Educational Program Assistant: Ibrahima Valdes Gender: F Additional Staff: Height: 162.56 cm Admit Date: 06/13/2023 Weight: 86.18 kg Admission Status: Outpatient BSA: 1.91 m2 Department Location: [facility] Blood Pressure: 110 /60 mmHg Study Type: TRANSTHORACIC ECHO (TTE) COMPLETE Diagnosis/ICD: Shortness of breath-R06.02; Endocarditis, valve unspecified-I38 Indication: SOB, HV Disease, Dizziness, AO Dilation CPT Codes: Echo Complete w Full Doppler-[id number] Patient History: Smoker: Current. Pertinent History: HTN [...] not included)... Ibrahima Meyer DO - 06/13/[address], [address], [place] [address] TRANSTHORACIC ECHOCARDIOGRAM REPORT Patient Name: CANDY Mckee Physician: [id number] Ibrahima Serra DO Study Date: 06/13/2023 Ordering Provider: [id number] YOSSI HUNTER MRN/PID: [id number] Fellow: Nurse: Date of /Age: 5 1970 / 52 years Educational Program Assistant: Ibrahima Valdes Gender: F Additional Staff: Height: 162.56 cm Admit Date: 06/13/2023 Weight: 86.18 kg Admission Status: Outpatient BSA: 1.91 m2 Department Location: [facility] Blood Pressure: 110 /60 mmHg Study Type: TRANSTHORACIC ECHO (TTE) COMPLETE Diagnosis/ICD: Shortness of breath-R06.02; Endocarditis, valve unspecified-I38 Indication: SOB, HV Disease, Dizziness, AO Dilation CPT Codes: Echo Complete w Full Doppler-81013 Patient History: Smoker: Current. Pertinent History: HTN [...] cm2 RA Cornelius (more content not included)... [facility] Work Phone: PROF 14(COMP METB)on 022 Albumin [Mass/Vol] 4.2 g/dL Normal 3.4-5.0 [facility] Comment on above: Performed By: #### C MP #### [facility] [address] [place] [address] Dr. Leonides Anders Albumin/Globulin [Mass ratio] 1.3 {ratio} Normal [facility] Comment on above: Performed By: #### C MP #### [facility] [address] [place] [address] [address] Leonides Anders ALP [Catalytic activity/Vol] 90 U/L Normal 46-116 [facility] Comment on above: Performed By: #### C MP #### [facility] [address] [place] [address] [address] Leonides Anders ALT [Catalytic activity/Vol] 25 U/L Normal 14-59 [facility] Comment on above: Performed By: #### C MP #### [facility] [address] [place] [address] [address] Leonides Anders Anion gap [Moles/Vol] 12.1 mmol/L Normal [facility] Comment on above: Performed By: #### C MP #### [facility] [address] [place] [address] Dr. Leonides Anders AST [Catalytic activity/Vol] 20 U/L Normal 15-37 [facility] Comment on above: Performed By: #### C MP #### [facility] [address] [place] [address] [address] Leonides Anders Bilirubin [Mass/Vol] 0.3 mg/dL Normal 0.2-1.0 [facility] Comment on above: Performed By: #### C MP #### [facility] [address] [place] [address] [address] Leonides Anders Calcium [Mass/Vol] 9.4 mg/dL Normal 8.5-10.1 [facility] Comment on above: Performed By: #### C MP #### [facility] [address] [place] [address] [address] Leonides Anders Chloride [Moles/Vol] 99 mmol/L Normal 98-107 [facility] Comment on above: Performed By: #### C MP #### [facility] [address] [place] [address] [address] Leonides Anders CO2 [Moles/Vol] 26.2 mmol/L Normal 21.0-32.0 [facility] Comment on above: Performed By: #### C MP #### [facility] [address] [place] [address] [address] Leonides Anders Creatinine [Mass/Vol] 0.68 mg/dL Normal 0.55-1.02 [facility] Comment on above: Performed By: #### C MP #### [facility] [address] [place] [address] [address] Leonides Anders EGFR-AF EMIRATI >60 Normal >=60 [facility] Comment on above: Performed By: #### C MP #### [facility] [address] [place] [address] [address] Leonides Anders EGFR-NON AF EMIRATI >60 Normal >=60 [facility] Comment on above: Performed By: #### C MP #### [facility] [address] [place] [address] Dr. Leonides Anders Globulin (S) [Mass/Vol] 3.3 g/dL Normal [facility] Comment on above: Performed By: #### C MP #### [facility] [address] [place] [address] Dr. Leonides Anders Glucose [Mass/Vol] 97 mg/dL Normal 74-106 [facility] Comment on above: Performed By: #### C MP #### [facility] [address] [place] [address] Dr. Leonides Anders Potassium [Moles/Vol] 4.3 mmol/L Normal 3.5-5.1 [facility] Comment on above: Performed By: #### C MP #### [facility] [address] [place] [address] Dr. Leonides Anders Protein [Mass/Vol] 7.5 g/dL Normal 6.4-8.2 [facility] Comment on above: Performed By: #### C MP #### [facility] [address] [place] [address] Dr. Leonides Anders Sodium [Moles/Vol] 133 mmol/L Critically low 136-145 [facility] Comment on above: Performed By: #### C MP #### [facility] [address] [place] [address] Dr. Leonides Anders Urea nitrogen [Mass/Vol] 10.0 mg/dL Normal 7.0-18.0 [facility] Comment on above: Performed By: #### C MP #### [facility] [address] [place] [address] Dr. Leonides Anders Urea nitrogen/Creatinine [Mass ratio] 14.7 mg/mg Normal [facility] Comment on above: Performed By: #### C MP #### [facility] [address] [place] [address] Dr. Leonides Anders CBC AUTO DIFFon 03-25-2022 BASO # 0.1 103/ul Normal 0.0-0.1 [facility] Comment on above: Performed By: #### C BC #### [facility] [address] [place] [address] Dr. Leonides Anders Basophils/100 WBC (Bld) 0.5 % Normal 0.2-2.0 [facility] Comment on above: Performed By: #### C BC #### [facility] [address] [place] [address] Dr. Leonides Anders EO # 0.1 103/ul Normal 0.0-0.7 [facility] Comment on above: Performed By: #### C BC #### [facility] [address] [place] [address] Dr. Leonides Anders Eosinophils/100 WBC (Bld) 1.1 % Normal 0.9-7.0 [facility] Comment on above: Performed By: #### C BC #### [facility] [address] [place] [address] Dr. Leonides Anders Erythrocyte distribution width (RBC) [Ratio] 12.9 % Normal 11.0-15.0 [facility] Comment on above: Performed By: #### C BC #### [facility] [address] [place] [address] Dr. Leonides Anders Hematocrit (Bld) [Volume fraction] 38.8 % Normal 36.0-48.0 [facility] Comment on above: Performed By: #### C BC #### [facility] [address] [place] [address] Dr. Leonides Anders Hemoglobin (Bld) [Mass/Vol] 13.8 g/dL Normal 12.0-16.0 [facility] Comment on above: Performed By: #### C BC #### [facility] [address] [place] [address] Dr. Leonides Anders IG # 0.03 10e3/ul Normal 0.00-0.03 [facility] Comment on above: Performed By: #### C BC #### [facility] [address] [place] [address] Dr. Leonides Anders IG % 0.3 % Normal 0.0-0.5 [facility] Comment on above: Performed By: #### C BC #### [facility] [address] [place] [address] Dr. Leonides Anders LYMPH # 2.5 103/ul Normal 1.2-3.8 [facility] Comment on above: Performed By: #### C BC #### [facility] [address] [place] [address] Dr. Leonides Anders Lymphocytes/100 WBC (Bld) 26.5 % Normal 20.5-60.0 [facility] Comment on above: Performed By: #### C BC #### [facility] [address] [place] [address] Dr. Leonides Anders MANUAL DIFF REQ NO Normal [facility] Comment on above: Performed By: #### C BC #### [facility] [address] [place] [address] Dr. Leonides Anders MCH (RBC) [Entitic mass] 32.0 pg Normal 26.7-34.0 [facility] Comment on above: Performed By: #### C BC #### [facility] [address] [place] [address] Dr. Leonides Anders MCHC (RBC) [Mass/Vol] 35.6 g/dL Critically high 29.9-35.2 [facility] Comment on above: Performed By: #### C BC #### [facility] [address] [place] [address] Dr. Leonides Anders MCV (RBC) [Entitic vol] 90.0 fL Normal 81.0-99.0 [facility] Comment on above: Performed By: #### C BC #### [facility] [address] [address] [address] Leonides Anders MONO # 0.9 103/ul Critically high 0.3-0.8 [facility] Comment on above: Performed By: #### C BC #### [facility] [address] [address] [address] Leonides Anders Monocytes/100 WBC (Bld) 9.8 % Normal 1.7-12.0 [facility] Comment on above: Performed By: #### C BC #### [facility] [address] [place] [address] Dr. Leonides Anders NEUT # 5.8 103/ul Normal 1.4-6.5 [facility] Comment on above: Performed By: #### C BC #### [facility] [address] [place] [address] Dr. Leonides Anders Neutrophils/100 WBC (Bld) 61.8 % Normal 43.0-75.0 [facility] Comment on above: Performed By: #### C BC #### [facility] [address] [place] [address] Dr. Leonides Anders Platelet mean volume (Bld) [Entitic vol] 9.5 fL Normal 9.5-13.5 [facility] Comment on above: Performed By: #### C BC #### [facility] [address] [place] [address] Dr. Leonides Anders PLT 255 103/ul Normal 150-450 [facility] Comment on above: Performed By: #### C BC #### [facility] [address] [place] [address] Dr. Leonides Anders RBC 4.31 106/ul Normal 4.20-5.40 [facility] Comment on above: Performed By: #### C BC #### [facility] [address] [place] [address] Dr. Leonides Anders WBC 9.4 103/ul Normal 4.0-11.0 [facility] Comment on above: Performed By: #### C BC #### [facility] [address] [address] [address] Leonides Anders PROF CHEM 8 (BAS METB)on Anion gap [Moles/Vol] 15.7 mmol/L Normal [facility] Comment on above: Performed By: #### B MP #### [facility] [address] [address] [address] Leonides Anders Calcium [Mass/Vol] 9.1 mg/dL Normal 8.5-10.1 [facility] Comment on above: Performed By: #### B MP #### [facility] [address] [place] [address] Dr. Leonides Anders Chloride [Moles/Vol] 91 mmol/L Critically low 98-107 [facility] Comment on above: Performed By: #### B MP #### [facility] [address] [place] [address] Dr. Leonides Anders CO2 [Moles/Vol] 22.8 mmol/L Normal 21.0-32.0 [facility] Comment on above: Performed By: #### B MP #### [facility] [address] [place] [address] Dr. Leonides Anders Creatinine [Mass/Vol] 0.57 mg/dL Normal 0.55-1.02 [facility] Comment on above: Performed By: #### B MP #### [facility] [address] [place] [address] Dr. Leonides Anders EGFR-AF EMIRATI >60 Normal >=60 [facility] Comment on above: Performed By: #### B MP #### [facility] [address] [address] [address] Leonides Anders EGFR-NON AF EMIRATI >60 Normal >=60 [facility] Comment on above: Performed By: #### B MP #### [facility] [address] [place] [address] Dr. Leonides Anders Glucose [Mass/Vol] 119 mg/dL Critically high 74-106 [facility] Comment on above: Performed By: #### B MP #### [facility] [address] [address] [address] Leonides Anders Potassium [Moles/Vol] 3.5 mmol/L Normal 3.5-5.1 [facility] Comment on above: Performed By: #### B MP #### [facility] [address] [address] [address] Leonides Anders Sodium [Moles/Vol] 126 mmol/L Critically low 136-145 [facility] Comment on above: Performed By: #### B MP #### [facility] [address] [address] [address] Leonides Anders Urea nitrogen [Mass/Vol] 4.0 mg/dL Critically low 7.0-18.0 [facility] Comment on above: Performed By: #### B MP #### [facility] [address] [place] [address] Dr. Leonides Anders Urea nitrogen/Creatinine [Mass ratio] 7.0 mg/mg Normal [facility] Comment on above: Performed By: #### B MP #### [facility] [address] [place] [address] Dr. Leonides Anders VITAMIN B12on 03-25-2022 Cobalamin (Vitamin B12) [Mass/Vol] 192.0 pg/mL Critically low 193.0-986.0 [facility] Comment on above: Performed By: #### V ITB12 #### [facility] [address] [address] [address] Leonides Anders VIT D 1 25 DIHYDROXYon 12-06 Calcitriol(1,25 di-OH Vit D) 57.4 pg/mL Normal 24.8-81.5 [facility] Comment on above: Result Comment: Pl ease note reference interval change Performed By: #### V [id number] ####[facility] [address] [address]Dr. Leonides Anders CBC AUTO DIFFon 12-04-2021 BASO # 0.1 103/ul Normal 0.0-0.1 [facility] Comment on above: Performed By: #### C BC ####[facility] [address] [place], [place] [id number]. Leonides Anders Basophils/100 WBC (Bld) 0.5 % Normal 0.2-2.0 [facility] Comment on above: Performed By: #### C BC ####[facility] [address] [place], [place] [id number]. Leonides Anders EO # 0.2 103/ul Normal 0.0-0.7 [facility] Comment on above: Performed By: #### C BC ####[facility] [address] [place], [place] [id number]. Leonides Anders Eosinophils/100 WBC (Bld) 2.3 % Normal 0.9-7.0 [facility] Comment on above: Performed By: #### C BC ####[facility] [address] [place], [place] [address]Dr. Leonides Anders Erythrocyte distribution width (RBC) [Ratio] 13.6 % Normal 11.0-15.0 [facility] Comment on above: Performed By: #### C BC ####[facility] [address] [place], [place] [address]Dr. Leonides Anders Hematocrit (Bld) [Volume fraction] 42.1 % Normal 36.0-48.0 [facility] Comment on above: Performed By: #### C BC ####[facility] [address] [place], [place] [id number]. Leonides Anders Hemoglobin (Bld) [Mass/Vol] 14.4 g/dL Normal 12.0-16.0 [facility] Comment on above: Performed By: #### C BC ####[facility] [address] [place], [place] [address]Dr. Leonides Anders IG # 0.02 10e3/ul Normal 0.00-0.03 [facility] Comment on above: Performed By: #### C BC ####[facility] [address] [place], [place] [address]Dr. Leonides Anders IG % 0.2 % Normal 0.0-0.5 [facility] Comment on above: Performed By: #### C BC ####[facility] [address] [id number]. Leonides Anders LYMPH # 3.6 103/ul Normal 1.2-3.8 [facility] Comment on above: Performed By: #### C BC ####[facility] [address] [id number]. Leonides Chago Lymphocytes/100 WBC (Bld) 38.3 % Normal 20.5-60.0 [facility] Comment on above: Performed By: #### C BC ####[facility] [address] [id number]. Kanikatorey Anders MANUAL DIFF REQ NO Normal [facility] Comment on above: Performed By: #### C BC ####[facility] [address] [id number]. Leonides Chago MCH (RBC) [Entitic mass] 31.0 pg Normal 26.7-34.0 [facility] Comment on above: Performed By: #### C BC ####[facility] [address] [id number]. Leonides Anders MCHC (RBC) [Mass/Vol] 34.2 g/dL Normal 29.9-35.2 [facility] Comment on above: Performed By: #### C BC ####[facility] [address] [id number]. Leonides Chago MCV (RBC) [Entitic vol] 90.5 fL Normal 81.0-99.0 [facility] Comment on above: Performed By: #### C BC ####[facility] [address] [id number]. Leonides Anders MONO # 0.8 103/ul Normal 0.3-0.8 [facility] Comment on above: Performed By: #### C BC ####[facility] [address] [id number]. Leonides Chago Monocytes/100 WBC (Bld) 8.7 % Normal 1.7-12.0 [facility] Comment on above: Performed By: #### C BC ####[facility] [address] [place], [place] [address]Dm. Leonides Anders NEUT # 4.7 103/ul Normal 1.4-6.5 [facility] Comment on above: Performed By: #### C BC ####[facility] [address] [place], [place] [address]Kq. Leonides Anders Neutrophils/100 WBC (Bld) 50.0 % Normal 43.0-75.0 [facility] Comment on above: Performed By: #### C BC ####[facility] [address] [place], [place] [address]Vy. Leonides Anders Platelet mean volume (Bld) [Entitic vol] 9.3 fL Critically low 9.5-13.5 [facility] Comment on above: Performed By: #### C BC ####[facility] [address] [id number]. Leonides Chago PLT 263 103/ul Normal 150-450 [facility] Comment on above: Performed By: #### C BC ####[facility] [address] [id number]. Kanikatorey Anders RBC 4.65 106/ul Normal 4.20-5.40 [facility] Comment on above: Performed By: #### C BC ####[facility] [address] [id number]. Leonides Anders WBC 9.5 103/ul Normal 4.0-11.0 [facility] Comment on above: Performed By: #### C BC ####[facility] [address] [place], [place] [address]FcAna Kanikatorey Anders FERRITINon 12-04-2021 Ferritin [Mass/Vol] 69.0 ng/mL Normal 8.0-252.0 [facility] Comment on above: Performed By: #### F ERR, VITB12 #### [facility] [address] [place], [place] [address] Dr. Leonides Anders LIPID PROFILEon 12-04-2021 CHOL-HDL RATIO NORM SEE BELOW Normal [facility] Comment on above: Result Comment: 3.3 - 4.4 LOW RISK 4.4 - 7.1 AVERAGE RISK 7.1 - 11.0 MODERATE RISK >11.0 HIGH RISK Performed By: #### C MP, LIPID #### [facility] [address] [address] [address] Leonides Anders Cholesterol [Mass/Vol] 234 mg/dL Critically high <=200 [facility] Comment on above: Performed By: #### C MP, LIPID #### [facility] [address] [address] [address] Leonides Anders Cholesterol in HDL [Mass/Vol] 48 mg/dL Normal 40-60 [facility] Comment on above: Performed By: #### C MP, LIPID #### [facility] [address] [place] [address] Dr. Leonides Anders Cholesterol in LDL [Mass/Vol] 150.8 mg/dL Normal [facility] Comment on above: Performed By: #### C MP, LIPID #### [facility] [address] [place] [address] Dr. Leonides Anders Cholesterol.total/Ch olesterol in HDL [Mass ratio] 4.9 {ratio} Normal [facility] Comment on above: Performed By: #### C MP, LIPID #### [facility] [address] [place] [address] Dr. Leonides Anders HDL NORMAL > or = 60 mg/dl - LOW CARDIOVASCULAR RISK <40 mg/dl - HIGH CARDIOVASCULAR RISK Normal [facility] Comment on above: Performed By: #### C MP, LIPID #### [facility] [address] [place] [address] Dr. Leonides Anders LDL CALC NORMAL SEE BELOW Normal [facility] Comment on above: Result Comment: <100 mg/dl OPTIMAL 100 - 129 mg/dl NEAR OR ABOVE OPTIMAL 130 - 159 mg/dl BORDERLINE HIGH 160 - 189 mg/dl HIGH >190 mg/dl VERY HIGH Performed By: #### C MP, LIPID #### [facility] [address] [place] [address] Dr. Leonides Anders Triglyceride [Mass/Vol] 176 mg/dL Critically high <=150 [facility] Comment on above: Performed By: #### C MP, LIPID #### [facility] [address] [address] [address] Leonides Anders VLDL CALC 35.2 mg/dL Normal [facility] Comment on above: Performed By: #### C MP, LIPID #### [facility] [address] [address] [address] Leonides Anders PROF 14(COMP METB)on 022 Albumin [Mass/Vol] 4.3 g/dL Normal 3.4-5.0 [facility] Comment on above: Performed By: #### C MP, LIPID #### [facility] [address] [address] [address] Leonides Anders Albumin/Globulin [Mass ratio] 1.3 {ratio} Normal [facility] Comment on above: Performed By: #### C MP, LIPID #### [facility] [address] [place] [address] Dr. Leonides Anders ALP [Catalytic activity/Vol] 96 U/L Normal 46-116 [facility] Comment on above: Performed By: #### C MP, LIPID #### [facility] [address] [address] [address] Leonides Anders ALT [Catalytic activity/Vol] 27 U/L Normal 14-59 [facility] Comment on above: Performed By: #### C MP, LIPID #### [facility] [address] [address] [address] Leonides Anders Anion gap [Moles/Vol] 12.5 mmol/L Normal [facility] Comment on above: Performed By: #### C MP, LIPID #### [facility] [address] [address] [address] Leonides Anders AST [Catalytic activity/Vol] 16 U/L Normal 15-37 [facility] Comment on above: Performed By: #### C MP, LIPID #### [facility] [address] [address] [address] Leonides Anders Bilirubin [Mass/Vol] 0.3 mg/dL Normal 0.2-1.0 [facility] Comment on above: Performed By: #### C MP, LIPID #### [facility] [address] [address] [address] Leonides Anders Calcium [Mass/Vol] 9.5 mg/dL Normal 8.5-10.1 [facility] Comment on above: Performed By: #### C MP, LIPID #### [facility] [address] [address] [address] Leonides Anders Chloride [Moles/Vol] 98 mmol/L Normal 98-107 [facility] Comment on above: Performed By: #### C MP, LIPID #### [facility] [address] [address] [address] Leonides Anders CO2 [Moles/Vol] 27.5 mmol/L Normal 21.0-32.0 [facility] Comment on above: Performed By: #### C MP, LIPID #### [facility] [address] [address] [address] Leonides Anders Creatinine [Mass/Vol] 0.82 mg/dL Normal 0.55-1.02 [facility] Comment on above: Performed By: #### C MP, LIPID #### [facility] [address] [address] [address] Leonides Anders EGFR-AF EMIRATI >60 Normal >=60 [facility] Comment on above: Performed By: #### C MP, LIPID #### [facility] [address] [address] [address] Leonides Anders EGFR-NON AF EMIRATI >60 Normal >=60 [facility] Comment on above: Performed By: #### C MP, LIPID #### [facility] [address] [address] [address] Leonides Anders Globulin (S) [Mass/Vol] 3.4 g/dL Normal [facility] Comment on above: Performed By: #### C MP, LIPID #### [facility] [address] [address] [address] Leonides Anders Glucose [Mass/Vol] 98 mg/dL Normal 74-106 [facility] Comment on above: Performed By: #### C MP, LIPID #### [facility] [address] [address] [address] Leonides Anders Potassium [Moles/Vol] 4.0 mmol/L Normal 3.5-5.1 [facility] Comment on above: Performed By: #### C MP, LIPID #### [facility] [address] [address] [address] Leonides Anders Protein [Mass/Vol] 7.7 g/dL Normal 6.4-8.2 [facility] Comment on above: Performed By: #### C MP, LIPID #### [facility] [address] [address] [address] Leonides Anders Sodium [Moles/Vol] 134 mmol/L Critically low 136-145 [facility] Comment on above: Performed By: #### C MP, LIPID #### [facility] [address] [address] [address] Leonides Anders Urea nitrogen [Mass/Vol] 9.0 mg/dL Normal 7.0-18.0 [facility] Comment on above: Performed By: #### C MP, LIPID #### [facility] [address] [address] [address] Leonides Anders Urea nitrogen/Creatinine [Mass ratio] 11.0 mg/mg Normal [facility] Comment on above: Performed By: #### C MP, LIPID #### [facility] [address] [address] [address] Leonides Anders US SINGLE QUAD RT [...] Date: 2021-12-04 19:11 Normal [facility] VITAMIN B12on 12-04-2021 Cobalamin (Vitamin B12) [Mass/Vol] 232.0 pg/mL Normal 193.0-986.0 [facility] Comment on above: Performed By: #### F ERR, VITB12 #### [facility] [address] [place] [address] Dr. Leonides Anders CBC AUTO DIFFon 11-03-2021 BASO # 0.0 103/ul Normal 0.0-0.1 [facility] Comment on above: Performed By: #### C BC #### [facility] [address] [place] [address] Dr. Leonides Anders Basophils/100 WBC (Bld) 0.6 % Normal 0.2-2.0 [facility] Comment on above: Performed By: #### C BC #### [facility] [address] [place] [address] Dr. Leonides Anders EO # 0.1 103/ul Normal 0.0-0.7 [facility] Comment on above: Performed By: #### C BC #### [facility] [address] [place] [address] Dr. Leonides Anders Eosinophils/100 WBC (Bld) 0.9 % Normal 0.9-7.0 [facility] Comment on above: Performed By: #### C BC #### [facility] [address] [place] [address] Dr. Leonides Anders Erythrocyte distribution width (RBC) [Ratio] 14.1 % Normal 11.0-15.0 [facility] Comment on above: Performed By: #### C BC #### [facility] [address] [place] [address] Dr. Leonides Anders Hematocrit (Bld) [Volume fraction] 44.9 % Normal 36.0-48.0 [facility] Comment on above: Performed By: #### C BC #### [facility] [address] [place] [address] Dr. Leonides Anders Hemoglobin (Bld) [Mass/Vol] 15.4 g/dL Normal 12.0-16.0 [facility] Comment on above: Performed By: #### C BC #### [facility] [address] [place] [address] Dr. Leonides Anders IG # 0.02 10e3/ul Normal 0.00-0.03 [facility] Comment on above: Performed By: #### C BC #### [facility] [address] [place] [address] Dr. Leonides Anders IG % 0.3 % Normal 0.0-0.5 [facility] Comment on above: Performed By: #### C BC #### [facility] [address] [place] [address] Dr. Leonides Anders LYMPH # 1.4 103/ul Normal 1.2-3.8 [facility] Comment on above: Performed By: #### C BC #### [facility] [address] [place] [address] Dr. Leonides Anders Lymphocytes/100 WBC (Bld) 20.3 % Critically low 20.5-60.0 [facility] Comment on above: Performed By: #### C BC #### [facility] [address] [place] [address] Dr. Leonides Anders MANUAL DIFF REQ NO Normal [facility] Comment on above: Performed By: #### C BC #### [facility] [address] [place] [address] Dr. Leonides Anders MCH (RBC) [Entitic mass] 30.6 pg Normal 26.7-34.0 [facility] Comment on above: Performed By: #### C BC #### [facility] [address] [place] [address] Dr. Leonides Anders MCHC (RBC) [Mass/Vol] 34.3 g/dL Normal 29.9-35.2 [facility] Comment on above: Performed By: #### C BC #### [facility] [address] [place] [address] Dr. Leonides Anders MCV (RBC) [Entitic vol] 89.3 fL Normal 81.0-99.0 [facility] Comment on above: Performed By: #### C BC #### [facility] [address] [place] [address] Dr. Leonides Anders MONO # 0.4 103/ul Normal 0.3-0.8 [facility] Comment on above: Performed By: #### C BC #### [facility] [address] [place] [address] Dr. Leonides Anders Monocytes/100 WBC (Bld) 6.3 % Normal 1.7-12.0 [facility] Comment on above: Performed By: #### C BC #### [facility] [address] [place] [address] Dr. Leonides Anders NEUT # 4.9 103/ul Normal 1.4-6.5 [facility] Comment on above: Performed By: #### C BC #### [facility] [address] [place] [address] Dr. Leonides Anders Neutrophils/100 WBC (Bld) 71.6 % Normal 43.0-75.0 [facility] Comment on above: Performed By: #### C BC #### [facility] [address] [place] [address] Dr. Leonides Anders Platelet mean volume (Bld) [Entitic vol] 9.1 fL Critically low 9.5-13.5 [facility] Comment on above: Performed By: #### C BC #### [facility] [address] [place] [address] Dr. Leonides Anders PLT 235 103/ul Normal 150-450 [facility] Comment on above: Performed By: #### C BC #### [facility] [address] [place] [address] Dr. Leonides Anders RBC 5.03 106/ul Normal 4.20-5.40 [facility] Comment on above: Performed By: #### C BC #### [facility] [address] [place] [address] Dr. Leonides Anders WBC 6.8 103/ul Normal 4.0-11.0 [facility] Comment on above: Performed By: #### C BC #### [facility] [address] [place], [place] [address] ABD/PELV W CONon [...] by: MARGARET PARRA Date: 2021-11-03 10:51 Normal [facility] LACTATE/LACTIC ACIDon 2021 Lactate [Moles/Vol] 0.9 mmol/L Normal 0.4-1.9 [facility] Comment on above: Performed By: #### L ACT ####[facility] [address] [place], [place] [address]Dr. Leonides Anders LIPASEon 11-03-2021 Lipase [Catalytic activity/Vol] 44.0 U/L Critically low 73.0-393.0 [facility] Comment on above: Performed By: #### L IPA, CMP ####[facility] [address] [address]Dr. Leonides Anders PROF 14(COMP METB)on 022 Albumin [Mass/Vol] 4.3 g/dL Normal 3.4-5.0 [facility] Comment on above: Performed By: #### L IPA, CMP ####[facility] [address] [address]Dr. Leonides Anders Albumin/Globulin [Mass ratio] 1.3 {ratio} Normal [facility] Comment on above: Performed By: #### L IPA, CMP ####[facility] [address] [place], [place] [address]Dr. Leonides Anders ALP [Catalytic activity/Vol] 95 U/L Normal 46-116 [facility] Comment on above: Performed By: #### L IPA, CMP ####[facility] [address] [place], [place] [address]Dr. Leonides Anders ALT [Catalytic activity/Vol] 20 U/L Normal 14-59 [facility] Comment on above: Performed By: #### L IPA, CMP ####[facility] [address] [place], [place] [address]Dr. Leonides Anders Anion gap [Moles/Vol] 14.9 mmol/L Normal [facility] Comment on above: Performed By: #### L IPA, CMP ####[facility] [address] [place], [place] [address]Dr. Leonides Anders AST [Catalytic activity/Vol] 21 U/L Normal 15-37 [facility] Comment on above: Performed By: #### L IPA, CMP ####[facility] [address] [place], [place] [address]Dr. Leonides Anders Bilirubin [Mass/Vol] 0.5 mg/dL Normal 0.2-1.0 [facility] Comment on above: Performed By: #### L IPA, CMP ####[facility] [address] [place], [place] [address]Dr. Leonides Anders Calcium [Mass/Vol] 9.6 mg/dL Normal 8.5-10.1 [facility] Comment on above: Performed By: #### L IPA, CMP ####[facility] [address] [address]Dr. Leonides Anders Chloride [Moles/Vol] 99 mmol/L Normal 98-107 [facility] Comment on above: Performed By: #### L IPA, CMP ####[facility] [address] [address]Dr. Leonides Anders CO2 [Moles/Vol] 23.1 mmol/L Normal 21.0-32.0 [facility] Comment on above: Performed By: #### L IPA, CMP ####[facility] [address] [place], [place] [address]Dr. Leonides Anders Creatinine [Mass/Vol] 0.69 mg/dL Normal 0.55-1.02 [facility] Comment on above: Performed By: #### L IPA, CMP ####[facility] [address] [place] [id number]. Leonides Anders EGFR-AF EMIRATI >60 Normal >=60 [facility] Comment on above: Performed By: #### L IPA, CMP ####[facility] [address] [place], [place] [address]Dr. Leonides Anders EGFR-NON AF EMIRATI >60 Normal >=60 [facility] Comment on above: Performed By: #### L IPA, CMP ####[facility] [address] [place], [place] [address]Dr. Leonides Anders Globulin (S) [Mass/Vol] 3.4 g/dL Normal [facility] Comment on above: Performed By: #### L IPA, CMP ####[facility] [address] [place], [place] [address]Dr. Leonides Anders Glucose [Mass/Vol] 121 mg/dL Critically high 74-106 [facility] Comment on above: Performed By: #### L IPA, CMP ####[facility] [address] [place], [place] [address]Dr. Leonides Anders Potassium [Moles/Vol] 4.0 mmol/L Normal 3.5-5.1 [facility] Comment on above: Performed By: #### L IPA, CMP ####[facility] [address] [place] [address]Dr. Kanikatorey Anders Protein [Mass/Vol] 7.7 g/dL Normal 6.4-8.2 [facility] Comment on above: Performed By: #### L IPA, CMP ####[facility] [address] [place] [address]Dr. Leonides Anders Sodium [Moles/Vol] 133 mmol/L Critically low 136-145 [facility] Comment on above: Performed By: #### L IPA, CMP ####[facility] [address] [place] [address]Dr. Leonides Anders Urea nitrogen [Mass/Vol] 6.0 mg/dL Critically low 7.0-18.0 [facility] Comment on above: Performed By: #### L IPA, CMP ####[facility] [address] [place], [place] [address]Dr. Leonides Anders Urea nitrogen/Creatinine [Mass ratio] 8.7 mg/mg Normal [facility] Comment on above: Performed By: #### L IPA, CMP ####[facility] [address] [place], [place] [address]Dr. Leonides Anders TROPONIN, HIGH SENSITIVITYon 11-03-2021 HSTROP 6.0 pg/mL Normal 4.0-51.3 [facility] Comment on above: Result Comment: CUT- OFF POINTS HAVE BEEN ESTABLISHED BASED ON THE FOURTH UNIVERSAL DEFINITIONS OF MYOCARDIAL INFARCTION. THE UPPER REFERENCE LIMIT (URL) OF TROPONIN, DEFINED THE 99TH PERCENTILE OF cTnI DISTRIBUTION IN A REFERENCE POPULATION, HAS BEEN CONFIRMED THE DECISION THRESHOLD FOR MA DIAGNOSIS. Performed By: #### H STROPN ####[facility] [address] [place], [place] [address]Dr. Leonides Null 03-26-2021 DILCIA Telephone (Flexcom) EMMYCANDY ([id number]) 1970 F Date Time Provider Department 03/26/21 RODY SAMUEL During your visit today, we recorded [...] Date Reviewed: 11/08/2020 Reviewed by: Ariana Matute APRN.PSYCHIATRIC ARNP - Fully Assessed Reason for Visit: Rx [...] by LORI TAMEZ on 08/06/21 [facility] [place] 11-29-2020 CNPN Telephone (HEMASA) CANDY BOOTH ([id number]) 1970 F Date Time Provider Department 11/29/20 [...] Date Reviewed: 11/08/2020 Reviewed by: Ariana Matute APRN.PSYCHIATRIC ARNP - Fully Assessed Reason for Visit: Lab Orders [893] 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] Order(s):CBC + DIFF (FOR REMOTE [facility] USE) [SQRCBCDF] Order #: [id number] STANDING COMP METABOLIC PANEL [SQCMP] Order #: [id number] STANDING FERRITIN BLD [SQFERR] Order #: [id number] STANDING IRON + TIBC [SQIRON] Order #: [id number] STANDING VITAMIN B12 BLOOD [SQB12] Order #: [id number] STANDING Prescriptions as of 11/30/2020 - amitriptyline [...] Encounter Status:Closed by MICHELLE ALLISON on 11/30/20 [facility] CNOVSPon 11-08-2020 CNOVSP Visit (SP) Office (HEMASA) CANDY BOOTH ([id number]) 1970 F Date Time Provider Department 11/08/20 1:30 PM ARIANA MATUTE During your visit today, we recorded the following information about you: Temperature Pulse Respiration Blood pressure 97.2 degrees 94/minute 16/minute 118/79 Weight Height 92.4 kg 1.702 m Ariana Matute APRN.CNP 11/08/2020 3:37 PM Signed NAME: Candy Booth CLINIC NO.: [id number] DATE OF SERVICE: November 08, 2020 Referring [...] pill endoscopy. 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 [...] cap capsule (more content not included)... Normal [facility] Comp Metabolic Panelon 11-08 Albumin [Mass/Vol] 4.4 g/dL Normal 3.9-4.9 [facility] Comment on above: Performed By: #### F ERR, B12, IRON #### [facility] [address] [place] [id number] ALP [Catalytic activity/Vol] 111 U/L Normal 34-123 [facility] Comment on above: Performed By: #### F ERR, B12, IRON #### [facility] [employer] [address] [place], [place] [address] ALT [Catalytic activity/Vol] 7 U/L Normal 7-38 [facility] Comment on above: Performed By: #### F ERR, B12, IRON #### [facility] [address] [place], [place] [address] Anion gap [Moles/Vol] 7 mmol/L Low 9-18 [facility] Comment on above: Performed By: #### F ERR, B12, IRON #### [facility] [address] [place] [id number] [phone] AST [Catalytic activity/Vol] 17 U/L Normal 13-35 [facility] Comment on above: Performed By: #### F ERR, B12, IRON #### [facility] [address] [place] [address] Bilirubin [Mass/Vol] mg/dL Low 0.2-1.3 [facility] Comment on above: Performed By: #### F ERR, B12, IRON #### [place] [address] Calcium [Mass/Vol] 9.7 mg/dL Normal 8.5-10.2 [facility] Comment on above: Performed By: #### F ERR, B12, IRON #### [place] [address] Chloride [Moles/Vol] 100 mmol/L Normal 97-105 [facility] Comment on above: Performed By: #### F ERR, B12, IRON #### [place] [address] CO2 [Moles/Vol] 26 mmol/L Normal 22-30 [facility] Comment on above: Performed By: #### F ERR, B12, IRON #### [place] [address] Creatinine [Mass/Vol] 0.63 mg/dL Normal 0.58-0.96 [facility] Comment on above: Performed By: #### F ERR, B12, IRON #### [place] [address] [place] [address] eGFR- Amer. >60 Normal [facility] Comment on above: Performed By: #### F ERR, B12, IRON #### [place] [address] eGFR-All Other Races >60 Normal [facility] Comment on above: Result Comment: eGFR [...] By: #### F ERR, B12, IRON #### [facility] [employer] [address] [place], [place] [address] Glucose [Mass/Vol] 104 mg/dL High 74-99 [facility] Comment on above: Result Comment: The [place] Diabetes Association (ADA) provides guidance for cutoff [...] Standards of Medical Care in Diabetes 2016, [place] [employer] Association. Diabetes Care. 2016.39(Suppl 1). Performed By: #### F ERR, B12, IRON #### [facility] [employer] [address] [place], [place] [address] Potassium [Moles/Vol] 4.4 mmol/L Normal 3.7-5.1 [facility] Comment on above: Performed By: #### F ERR B12, IRON #### [facility] [employer] [address] [place], [place] [address] Protein [Mass/Vol] 6.9 g/dL Normal 6.3-8.0 [facility] Comment on above: Performed By: #### F ERR, B12, IRON #### [facility] [employer] [address] [place] [address] Sodium [Moles/Vol] 133 mmol/L Low 136-144 [facility] Comment on above: Performed By: #### F ERR, B12, IRON #### [place] [address] [place] [id number] Urea nitrogen [Mass/Vol] 9 mg/dL Normal 7-21 [facility] Comment on above: Performed By: #### F ERR, B12, IRON #### [place] [address] [place] [id number] Ferritinon 11-08-2020 Ferritin [Mass/Vol] 13.1 ng/mL Low 14.7-205.1 [facility] Comment on above: Performed By: #### F ERR, B12, IRON #### [place] [address] Iron and TIBCon 11-08-2020 Iron [Mass/Vol] 29 ug/dL Low 41-186 [facility] Comment on above: Performed By: #### F ERR, B12, IRON #### [place] [address] [place] [id number] TIBC 405 ug/dL High 232-386 [facility] Comment on above: Performed By: #### F ERR, B12, IRON #### [address] [address] Transferrin Saturatn 7 % Low 15-57 [facility] Comment on above: Performed By: #### F ERR, B12, IRON #### [place] [address] [place] [id number] Remote CBCDIF (for C use o nly)on 11-08-2020 Abs Baso 0.04 k/uL Normal <0.11 [facility] Abs [place] 0.79 k/uL Normal <0.87 [facility] Abs Neut 8.64 k/uL High 1.45-7.50 [facility] Absolute nRBC <0.01 Normal <0.01 [facility] Basophils/100 WBC (Bld) 0.3 % Normal [facility] DTYPE Auto Diff Normal [facility] Eosinophils (Bld) [#/Vol] 0.11 10*3/uL Normal <0.46 [facility] Eosinophils/100 WBC (Bld) 0.9 % Normal [facility] Erythrocyte distribution width (RBC) [Ratio] 18.0 % High 11.5-15.0 [facility] Hematocrit (Bld) [Volume fraction] 34.8 % Low 36.0-46.0 [facility] Hemoglobin (Bld) [Mass/Vol] 11.2 g/dL Low 11.5-15.5 [facility] Lymphocytes (Bld) [#/Vol] 2.16 10*3/uL Normal 1.00-4.00 [facility] Lymphocytes/100 WBC (Bld) 18.4 % Normal [facility] MCH 25.5 pG Low 26.0-34.0 [facility] MCHC (RBC) [Mass/Vol] 32.2 g/dL Normal 30.5-36.0 [facility] MCV (RBC) [Entitic vol] 79.1 fL Low 80.0-100.0 [facility] Monocytes/100 WBC (Bld) 6.7 % Normal [facility] Neutrophils/100 WBC (Bld) 73.7 % Normal [facility] NRBCs 0.0 /100 WBC Normal 0 [facility] Platelet mean volume (Bld) [Entitic vol] 9.3 fL Normal 9.0-12.7 [facility] Platelets (Bld) [#/Vol] 253 10*3/uL Normal 150-400 [facility] RBC (Bld) [#/Vol] 4.40 10*6/uL Normal 3.90-5.20 [facility] WBC (Bld) [#/Vol] 11.74 10*3/uL High 3.70-11.00 [facility] Vitamin B12on 11-08-2020 Cobalamin (Vitamin B12) [Mass/Vol] 236 pg/mL Normal 232-1245 [facility] Comment on above: Performed By: #### F ERR, B12, IRON #### [facility] [address] [place] [address] [place] 11-02-2020 DILCIA Telephone (LONGASA) CANDY BOOTH ([id number]) 1970 F Date Time Provider Department 11/02/20 [...] Fully Assessed Reason for Visit: Lab Orders [2363] Primary Visit Diagnosis:Megaloblas tic anemia due to [...] gastric bypass [Z98.84] 10/11/2020 Encounter Status:Closed by BAILEY ANALISA on 11/06/[facility] Nurse Visit (HEMASA) CANDY BOOTH ([id number]) 1970 F Date Time Provider Department 10/11/20 4:00 PM THANH NURSE PAUL LINDSAY During your visit today, we recorded the following information about you: Analisa Tai 10/11/2020 4:09 PM Signed Patient Identification confirmed: yes. Injection given and documented on JUL per provider order. Analisa Tai Referring Provider: SARITHA AMAYA [[id number]] Allergies As of Date: 10/11/2020 Noted Allergy [...] Linsey-en-Y gastric bypass [Z98.84] Order(s):TREATMENT PARAMETER-NOT NEEDED [2693661] Order #: [id number]: 1 HEMONC NURSING COMMUNICATION [9092034] Order #: [id number]: 1 STANDING [] cyanocobalamin 1,000 mcg injectionDisp: [...] bypass [Z98.84] 10/11/2020 Visit Notes: >> August Bailey Wed October 11, 2020 4:07 PM Status: Signed Patient Identification confirmed: yes. Injection given and documented on JUL per provider order. August Bailey Prescriptions ordered this encounter Disp Refills Start End CYANOCOBALAMIN (VIT B-12) 1,000 MCG/* 10/11/2020 10/11/2020 Route: INTRAMUSCULA Encounter Status:Closed by August on 10/11/20 [facility] CNOVSPon 10-11-2020 CNOVSP Visit (SP) Office (HEMASA) CANDY BOOTH ([id number]) 1970 F Date Time Provider Department 10/11/20 3:15 PM SARITHA AMAYA During your visit today, we recorded the following information about you: Temperature Pulse Respiration Blood pressure 96.9 degrees 120/minute 16/minute 111/60 Weight Height 92.3 kg 1.702 m Saritha Amaya MD 10/21/2020 6:59 PM Signed NAME: Candy Booth CLINIC NO.: [id number] DATE OF SERVICE: October 11, 2020 Referring [...] pill endoscopy. 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 [...] TIMES DAILY (more content not included)... Normal [facility] Comp Metabolic Panelon 10-11 Albumin [Mass/Vol] 4.2 g/dL Normal 3.9-4.9 [facility] ALP [Catalytic activity/Vol] 102 U/L Normal 34-123 [facility] ALT [Catalytic activity/Vol] 7 U/L Normal 7-38 [facility] Anion gap [Moles/Vol] 10 mmol/L Normal 9-18 [facility] AST [Catalytic activity/Vol] 19 U/L Normal 13-35 [facility] Bilirubin [Mass/Vol] mg/dL Low 0.2-1.3 [facility] Calcium [Mass/Vol] 9.7 mg/dL Normal 8.5-10.2 [facility] Chloride [Moles/Vol] 98 mmol/L Normal 97-105 [facility] CO2 [Moles/Vol] 22 mmol/L Normal 22-30 [facility] Creatinine [Mass/Vol] 0.58 mg/dL Normal 0.58-0.96 [facility] eGFR- Amer. >60 Normal [facility] eGFR-All Other Races >60 Normal [facility] Comment on above: Result Comment: eGFR [...] GFR. Glucose [Mass/Vol] 106 mg/dL High 74-99 [facility] Comment on above: Result Comment: The [place] Diabetes Association (ADA) provides guidance for cutoff [...] Standards of Medical Care in Diabetes 2016, [place] Diabetes Association. Diabetes Care. 2016.39(Suppl 1). Potassium [Moles/Vol] 4.2 mmol/L Normal 3.7-5.1 [facility] Protein [Mass/Vol] 7.2 g/dL Normal 6.3-8.0 [facility] Sodium [Moles/Vol] 130 mmol/L Low 136-144 [facility] Urea nitrogen [Mass/Vol] 3 mg/dL Low 7-21 [facility] Ferritinon 10-11-2020 Ferritin [Mass/Vol] 23.6 ng/mL Normal 14.7-205.1 [facility] Comment on above: Performed By: #### I RYAN, B12, SERFOL, FERR #### [facility] [address] [place] [address] Folate, Serumon 10-11-2020 Folate [Mass/Vol] 12.7 ng/mL Normal >4.7 [facility] Comment on above: Performed By: #### I RYAN, B12, SERFOL, FERR #### [place] [address] [place] [address] Iron and TIBCon 10-11-2020 Iron [Mass/Vol] 22 ug/dL Low 41-186 [facility] Comment on above: Performed By: #### I RYAN, B12, SERFOL, FERR #### [facility] [address] [place], [place] [address] TIBC 386 ug/dL Normal 232-386 [facility] Comment on above: Performed By: #### I RYAN, B12, SERFOL, FERR #### [facility] [address] [place] [address] Transferrin Saturatn 6 % Low 15-57 [facility] Comment on above: Performed By: #### I RYAN, B12, SERFOL, FERR #### [facility] [address] [place], [place] [address] LDon 10-11-2020 LD 182 U/L Normal 135-214 [facility] Remote CBCDIF (for [facility] use o nly)on 10-11-2020 Abs Baso 0.05 k/uL Normal <0.11 [facility] Abs [place] 0.67 k/uL Normal <0.87 [facility] Abs Neut 6.73 k/uL Normal 1.45-7.50 [facility] Absolute nRBC <0.01 Normal <0.01 [facility] Basophils/100 WBC (Bld) 0.5 % Normal [facility] DTYPE Auto Diff Normal [facility] Eosinophils (Bld) [#/Vol] 0.13 10*3/uL Normal <0.46 [facility] Eosinophils/100 WBC (Bld) 1.4 % Normal [facility] Erythrocyte distribution width (RBC) [Ratio] 18.4 % High 11.5-15.0 [facility] Hematocrit (Bld) [Volume fraction] 34.7 % Low 36.0-46.0 [facility] Hemoglobin (Bld) [Mass/Vol] 11.0 g/dL Low 11.5-15.5 [facility] Lymphocytes (Bld) [#/Vol] 2.00 10*3/uL Normal 1.00-4.00 [facility] Lymphocytes/100 WBC (Bld) 20.9 % Normal [facility] MCH 25.7 pG Low 26.0-34.0 [facility] MCHC (RBC) [Mass/Vol] 31.7 g/dL Normal 30.5-36.0 [facility] MCV (RBC) [Entitic vol] 81.1 fL Normal 80.0-100.0 [facility] Monocytes/100 WBC (Bld) 7.0 % Normal [facility] Neutrophils/100 WBC (Bld) 70.2 % Normal [facility] NRBCs 0.0 /100 WBC Normal 0 [facility] Platelet mean volume (Bld) [Entitic vol] 9.7 fL Normal 9.0-12.7 [facility] Platelets (Bld) [#/Vol] 338 10*3/uL Normal 150-400 [facility] RBC (Bld) [#/Vol] 4.28 10*6/uL Normal 3.90-5.20 [facility] WBC (Bld) [#/Vol] 9.58 10*3/uL Normal 3.70-11.00 [facility] Vitamin B12on 10-11-2020 Cobalamin (Vitamin B12) [Mass/Vol] 188 pg/mL Low 232-1245 [facility] Comment on above: Performed By: #### I RYAN, B12, SERFOL, FERR #### [facility] [address] [place], [place] [address] FLUORO FOR SURGICAL PROCEDUR ESon 02-09-2018 FLUORO [...] Angeligned by:Callum Salinas MD02/09/18inal result Normal [facility] ([place], [place]) Surgical Specimenon 02-10-20 Surgical Specimen Invalid Interpretation Code [facility] [place] Comment on above: Result Comment: [place] [id number] [phone] SURGICAL PATHOLOGY REPORTPatient Name: CANDY BOOTH Accession No: [id number] Age Sex: 1970 Location: DIS ORPOOLNONAccount No: [id number] Collected: 02/09/2018Med Rec No: [id number] Received: 02/09/2018Attend Phys: RONAL REJI Completed: 02/11/2018Perform Phys: RONAL YOOFINAL DIAGNOSIS:DISC TISSUE, L4-5, LEFT-DEGENERATED CARTILAGE. SIVES/SIVESCLINICAL INFORMATION:L4-5 left HNP. Disk.SPECIMEN:DiscGROSS DESCRIPTION:Specimen container is labeled with the patient's name and designated spine . In formalin are multiple irregular shaggy fragments of villarreal andpink soft and firm tissue measuring in aggregate 3 x 2.5 x 0.5 cm.Majority of tissue is submitted in two cassettes. PUNEET/FLOYDT: [id number] ROMERO M.D. 02/11/2018 Electronically signed out by Page 1 of 1 Basic Metabolic Panelon 01-24 Anion gap 3 molar conc 12 mmol/L Normal 7-13 [facility] ([place], [place]) Calcium mass conc 9.2 mg/dL Normal 8.6-10.2 [facility] ([place], [place] Chloride molar conc 102 mmol/L Normal 98-107 [facility], [place] CO2 molar conc 25 mmol/L Normal 22-29 [facility] [place]) Creatinine mass conc 0.42 mg/dL Low 0.50-0.90 [facility] GFR/1.73 sq M predicted among blacks MDRD vol rate/area (S/P/Bld) mL/min/{1.73_m2} Normal >60 [facility] [place] Comment on above: Result Comment: >60 mL/min/1.73m2 EGFR, calc. for ages 18 and older using theMDRD formula (not corrected for weight), is valid for stablerenal function. GFR/1.73 sq M.predicted MDRD vol rate/area mL/min/{1.73_m2} Normal >60 [facility] ([place], [place]) Comment on above: Result Comment: >60 mL/min/1.73m2 EGFR, calc. for ages 18 and older using theMDRD formula (not corrected for weight), is valid for stablerenal function. Glucose mass conc 82 mg/dL Normal 74-109 [facility] ([place], [place]) Potassium molar conc 4.2 mmol/L Normal 3.5-5.1 [facility] Sodium molar conc 139 mmol/L Normal 132-144 [facility] ([place], [place]) Urea nitrogen mass conc 6 mg/dL Normal 6-20 [facility], [place] CBC With Platelet No Differe ntialon 02-06-2018 Erythrocyte distribution width Auto Ratio (RBC) 20.2 % Critically high 11.5-14.5 [facility] ([place], [place]) Hematocrit Auto Volume Fraction (Bld) 36.3 % Low 37.0-47.0 [facility] ([place], [place]) Hemoglobin mass conc (Bld) 11.5 g/dL Low 12.0-16.0 [facility] ([place], [place]) MCH Auto Entitic mass (RBC) 24.1 pg Low 27.0-31.3 [facility] ([place], [place]) MCHC Auto mass conc (RBC) 31.7 % Low 33.0-37.0 [facility] ([place], [place]) MCV Auto Entitic volume (RBC) 76.0 fL Low 82.0-100.0 [facility] ([place], [place]) Platelets Auto #/vol (Bld) 203 10*3/uL Normal 130-400 [facility], [place]) RBC Auto #/vol (Bld) 4.78 10*6/uL Normal 4.20-5.40 [facility] WBC Auto #/vol (Bld) 4.9 10*3/uL Normal 4.8-10.8 [facility] Partial Thromboplastin Timeo n 02-06-2018 aPTT Coag time (Bld) 26.6 s Normal 21.6-35.4 [facility] Comment on above: Result Comment: Hepa rin Therapeutic Range: 38.8 - 54.6 seconds. Prothrombin Timeon 8 INR Coag RelTime (PPP) 0.9 {INR} Normal [facility] ([place], [place]) Comment on above: Result Comment: Madhu mmended [...] time (PPP) 9.4 s Low 9.6-12.3 [facility] ([place], [place]) Type and Screen Capture 3 sc rn cellon 02-06-2018 Bilirubin mass conc PATIENT: EMMY Acuña LOC: BROTHERS BILL# : [id number] : 1970 SEX: FORDERED BY: EMILY LUCERO ORDERED : 02/06/2018 07:42 COLLECTED: 02/06/2018 08:25ORDER : [id number] RECEIVED : 02/06/2018 08:25 ---TEST NAME RESULT UNITS RANGES ABN FL STABORH Capture O NEG FAntibody 3 Cell Scrn Captu NEG F Normal [facility] ([place], [place]) Urinalysis, reflex to cultur constantin 02-06-2018 Bilirubin Ql (U) Negative Normal Negative [facility] [place] Clarity Nom (U) Clear Normal Clear [facility] [place] Color Nom (U) Yellow Normal Straw/[place] [facility] [place] Glucose Ql (U) Negative Normal Negative [facility], [place] Hemoglobin Test strip Ql (U) Negative Normal Negative [facility] [place] Ketones Ql (U) Negative Normal Negative [facility] [place] Leukocyte esterase Test strip Ql (U) Negative Normal Negative [facility], [place] Nitrite Test strip Ql (U) Negative Normal Negative [facility], [place] pH Test strip (U) 6.0 [pH] Normal 5.0-9.0 [facility], [place] Protein Test strip Ql (U) Negative Normal Negative [facility], [place]) Specific gravity Relative Density (U) 1.009 Normal 1.005-1.03 [facility] ([place], [place]) Urine Reflexed to Culture Not Indicated Normal [facility] [place]) Urobilinogen Test strip Qn (U) 0.2 {[place]'U}/dL Normal < 2.0 [facility] ([place], [place]) Vital Signs Date Time Vital Sign Value Performing Clinician Facility 10-20-2024 16:01-0400 Body height 170.18 cm [facility] 10-20-2024 16:01-0400 Body mass index (BMI) [Ratio] 29.7 kg/m2 [facility] 10-20-2024 16:01-0400 Body temperature 97 [degF] [facility] 10-20-2024 16:01-0400 Body weight 86.18 kg [facility] 10-20-2024 16:01-0400 Diastolic blood pressure 75 mm[Hg] [facility] 10-20-2024 16:01-0400 Heart rate 117 /min [facility] 10-20-2024 16:01-0400 Systolic blood pressure 103 mm[Hg] [facility] 07-27-2024 16:10-0500 Body temperature 97.3 [degF] [facility] 06-11-2024 10:00-0500 Body temperature 98.29 [degF] Jovana Holloway MD Work Phone: [facility] 06-11-2024 10:00-0500 Diastolic blood pressure 83 mm[Hg] Jovana Holloway MD Work Phone: [facility] 06-11-2024 10:00-0500 Heart rate 105 /min Jovana Holloway MD Work Phone: [facility] 06-11-2024 10:00-0500 Respiratory rate 16 /min Jovana Holloway MD Work Phone: [facility] 06-11-2024 10:00-0500 SaO2% (BldA) [Mass fraction] 92 % Jovana Holloway MD Work Phone: [facility] 06-11-2024 10:00-0500 Systolic blood pressure 137 mm[Hg] [facility] Holloway [facility] 06-08-2024 12:37-0500 Body height 170.2 cm [facility]ov[facility] Holloway MD [facility]: [facility] 06-08-2024 12:37-0500 Body mass index (BMI) [Ratio] 30.67 kg/m2 Jovana Holloway MD Work Phone: [facility] 06-08-2024 12:37-0500 Body weight 88.81 kg Jovana Holloway MD Work Phone: [facility] 05-07-2024 09:22-0500 Body height 162.6 cm Yossi Hunter MD Work Phone: [facility] 05-07-2024 09:22-0500 Body mass index (BMI) [Ratio] 32.61 kg/m2 Yossi Hunter MD Work Phone: [facility] 05-07-2024 09:22-0500 Body weight 86.18 kg Yossi Hunter MD Work Phone: [facility] 05-07-2024 09:22-0500 Diastolic blood pressure 80 mm[Hg] Yossi Hunter MD Work Phone: [facility] 05-07-2024 09:22-0500 Heart rate 100 /min Yossi Hunter MD Work Phone: [facility] 05-07-2024 09:22-0500 Systolic blood pressure 126 mm[Hg] Yossi Hunter MD Work Phone: [facility] 04-29-2024 15:37-0500 Body height 170.18 cm Maureen Mitchell MD Work Phone: [facility] 04-29-2024 15:37-0500 Body mass index (BMI) [Ratio] 29.7 kg/m2 Maureen Mitchell MD Work Phone: [facility] 04-29-2024 15:37-0500 Body weight 86 kg Maureen Mitchell MD Work Phone: [facility] 04-29-2024 15:37-0500 Diastolic blood pressure 85 mm[Hg] Maureen Mitchell MD Work Phone: [facility] 04-29-2024 15:37-0500 Heart rate 120 /min Maureen Mitchell MD Work Phone: [facility] 04-29-2024 15:37-0500 Systolic blood pressure 119 mm[Hg] Maureen Mitchell MD Work Phone: [facility] 04-08-2024 15:03-0500 Body height 170.18 cm [facility] 04-08-2024 15:03-0500 Body mass index (BMI) [Ratio] 29.7 kg/m2 [facility] 04-08-2024 15:03-0500 Body weight 86.18 kg [facility] 04-08-2024 15:03-0500 Diastolic blood pressure 76 mm[Hg] [facility] 04-08-2024 15:03-0500 Heart rate 114 /min [facility] 04-08-2024 15:03-0500 Systolic blood pressure 108 mm[Hg] [facility] 04-07-2024 08:38-0500 Diastolic blood pressure 68 mm[Hg] Yossi Hunter MD Work Phone: [facility] 04-07-2024 08:38-0500 Heart rate 99 /min Yossi Hunter MD Work Phone: [facility] 04-07-2024 08:38-0500 Systolic blood pressure 110 mm[Hg] Yossi Hunter MD Work Phone: [facility] 03-30-2024 13:56-0500 Body height 167.64 cm [facility] 03-30-2024 13:56-0500 Body mass index (BMI) [Ratio] 28.8 kg/m2 [facility] 03-30-2024 13:56-0500 Body temperature 97.7 [degF] [facility] 03-30-2024 13:56-0500 Body weight 81 kg [facility] 03-30-2024 13:56-0500 Diastolic blood pressure 80 mm[Hg] [facility] 03-30-2024 13:56-0500 Heart rate 108 /min [facility] 03-30-2024 13:56-0500 Systolic blood pressure 112 mm[Hg] [facility] 02-26-2024 15:00-0400 Body height 167.64 cm [facility] 02-26-2024 15:00-0400 Body mass index (BMI) [Ratio] 29.8 kg/m2 [facility] 02-26-2024 15:00-0400 Body weight 83.91 kg [facility] 02-26-2024 15:00-0400 Diastolic blood pressure 88 mm[Hg] [facility] 02-26-2024 15:00-0400 Heart rate 122 /min [facility] 02-26-2024 15:00-0400 Respiratory rate 18 /min [facility] 02-26-2024 15:00-0400 SaO2% (BldA) [Mass fraction] 91 % [facility] 02-26-2024 15:00-0400 Systolic blood pressure 132 mm[Hg] [facility] 01-30-2024 11:32-0400 Body height 167.64 cm [facility] 01-30-2024 11:32-0400 Body mass index (BMI) [Ratio] 27.4 kg/m2 [facility] 01-30-2024 11:32-0400 Body weight 77.11 kg [facility] 01-30-2024 11:32-0400 Diastolic blood pressure 75 mm[Hg] [facility] 01-30-2024 11:32-0400 Heart rate 108 /min [facility] 01-30-2024 11:32-0400 Systolic blood pressure 115 mm[Hg] [facility] 01-20-2024 13:55-0400 Body height 167.64 cm [facility] 01-20-2024 13:55-0400 Body mass index (BMI) [Ratio] 27.2 kg/m2 [facility] 01-20-2024 13:55-0400 Body weight 76.65 kg [facility] 01-20-2024 13:55-0400 Diastolic blood pressure 62 mm[Hg] [facility] 01-20-2024 13:55-0400 Heart rate 130 /min [facility] 01-20-2024 13:55-0400 SaO2% (BldA) [Mass fraction] 75 % [facility] 01-20-2024 13:55-0400 Systolic blood pressure 76 mm[Hg] [facility] 01-05-2024 15:46-0400 Body temperature 98.01 [degF] Keli Rabago MD Work Phone: [facility] 01-05-2024 15:46-0400 Diastolic blood pressure 71 mm[Hg] Keli Rabago MD Work Phone: [facility] 01-05-2024 15:46-0400 Heart rate 89 /min Keli Rabago MD Work Phone: [facility] 01-05-2024 15:46-0400 Respiratory rate 18 /min Keli Rabago MD Work Phone: [facility] 01-05-2024 15:46-0400 SaO2% (BldA) [Mass fraction] 91 % Keli Rabago MD Work Phone: [facility] 01-05-2024 15:46-0400 Systolic blood pressure 106 mm[Hg] Keli Rabago MD Work Phone: [facility] 01-05-2024 06:00-0400 Body mass index (BMI) [Ratio] 31.97 kg/m2 Keli Rabago MD Work Phone: [facility] 01-05-2024 06:00-0400 Body weight 92.6 kg Keli Rabago MD Work Phone: [facility] [employer] 01-02-2024 14:46-0400 Body height 170.2 cm Keli Rabago MD Work Phone: [facility] [employer] 12-18-2023 13:49-0400 Body height 167.64 cm [facility] 12-18-2023 13:49-0400 Body mass index (BMI) [Ratio] 29.3 kg/m2 [facility] 12-18-2023 13:49-0400 Body weight 82.55 kg [facility] 12-18-2023 13:49-0400 Diastolic blood pressure 61 mm[Hg] [facility] 12-18-2023 13:49-0400 Heart rate 128 /min [facility] 12-18-2023 13:49-0400 Systolic blood pressure 85 mm[Hg] [facility] 12-11-2023 16:13-0400 Body height 167.64 cm [facility] 12-11-2023 16:13-0400 Body mass index (BMI) [Ratio] 32 kg/m2 [facility] 12-11-2023 16:13-0400 Body temperature 97 [degF] [facility] 12-11-2023 16:13-0400 Body weight 90 kg [facility] 12-11-2023 16:13-0400 Diastolic blood pressure 78 mm[Hg] [facility] 12-11-2023 16:13-0400 Heart rate 117 /min [facility] 12-11-2023 16:13-0400 Systolic blood pressure 123 mm[Hg] [facility] 10-14-2023 16:06-0400 Body temperature 97.9 [degF] [facility] 10-14-2023 16:06-0400 Heart rate 116 /min [facility] 10-14-2023 16:06-0400 SaO2% (BldA) [Mass fraction] 89 % [facility] 09-22-2023 14:17-0400 Body height 167.64 cm [facility] 09-22-2023 14:17-0400 Diastolic blood pressure 77 mm[Hg] [facility] 09-22-2023 14:17-0400 Heart rate 66 /min [facility] 09-22-2023 14:17-0400 Systolic blood pressure 109 mm[Hg] [facility] 09-12-2023 09:25-0400 Body height 167.64 cm [facility] 09-12-2023 09:25-0400 Body mass index (BMI) [Ratio] 31.3 kg/m2 [facility] 09-12-2023 09:25-0400 Body temperature 97.3 [degF] [facility] 09-12-2023 09:25-0400 Body weight 88 kg [facility] 09-12-2023 09:25-0400 Diastolic blood pressure 68 mm[Hg] [facility] 09-12-2023 09:25-0400 Heart rate 113 /min [facility] 09-12-2023 09:25-0400 Systolic blood pressure 103 mm[Hg] [facility] 08-26-2023 15:11-0400 Body height 167.64 cm [facility] 08-26-2023 15:11-0400 Body mass index (BMI) [Ratio] 30.4 kg/m2 [facility] 08-26-2023 15:11-0400 Body weight 85.5 kg [facility] 08-26-2023 15:11-0400 Diastolic blood pressure 65 mm[Hg] [facility] 08-26-2023 15:11-0400 Heart rate 121 /min [facility] 08-26-2023 15:11-0400 Systolic blood pressure 95 mm[Hg] [facility] 07-15-2023 12:00-0500 Diastolic blood pressure 56 mm[Hg] [address] 07-15-2023 12:00-0500 Heart rate 65 /min [facility] [address] [place] [address] 07-15-2023 12:00-0500 Respiratory rate 20 /min Jyots[facility] [address] [place] [address] 07-15-2023 12:00-0500 Systolic blood pressure 90 mm[Hg] [address] 07-15-2023 11:56-0500 SaO2% (BldA) [Mass fraction] 94 % [facility] [address] [place] [address] 07-01-2023 14:27-0500 Diastolic blood pressure 98 mm[Hg] Yossi Hunter MD Work Phone: [facility] 07-01-2023 14:27-0500 Heart rate 110 /min Yossi Hunter MD Work Phone: [facility] 07-01-2023 14:27-0500 Systolic blood pressure 124 mm[Hg] Yossi Hunter MD Work Phone: [phone] [place] [address] 06-13-2023 12:53-0500 Body height 162.[address] 06-13-2023 12:53-0500 Body mass index (BMI) [Ratio] 32.61 kg/m2 [address] 06-13-2023 12:53-0500 Body weight 86.[address] 06-13-2023 12:53-0500 Diastolic blood pressure 60 mm[Hg] [address] 06-13-2023 12:53-0500 Systolic blood pressure 110 mm[Hg] [address] 05-27-2023 14:04-0500 Body height 162.6 cm Yossi Hunter MD Work Phone: [facility] 05-27-2023 14:04-0500 Body mass index (BMI) [Ratio] 32.77 kg/m2 Yossi Hunter MD Work Phone: [facility] 05-27-2023 14:04-0500 Body weight 86.59 kg Yossi Hunter MD Work Phone: [facility] 05-27-2023 14:04-0500 Diastolic blood pressure 82 mm[Hg] Yossi Hunter MD Work Phone: [facility] 05-27-2023 14:04-0500 Heart rate 112 /min Yossi Hunter MD Work Phone: [facility] 05-27-2023 14:04-0500 Systolic blood pressure 122 mm[Hg] Yossi Hunter MD Work Phone: [facility] 03-13-2023 15:30-0400 Body height 167.64 cm Maureen Mitchell Other [email or web address] Other 03-13-2023 15:30-0400 Body mass index (BMI) [Ratio] 30.99 kg/m2 Maureen Mitchell Other [email or web address] Other 03-13-2023 15:30-0400 Body weight 87.09 kg Maureen Mitchell Other [email or web address] Other 03-13-2023 15:30-0400 Diastolic blood pressure 67 mm[Hg] Maureen Mitchell Other [email or web address] Other 03-13-2023 15:30-0400 Systolic blood pressure 106 mm[Hg] Maureen Mitchell Other [email or web address] Other 07-30-2022 15:45-0500 Body height 167.64 cm Maureen Mitchell Other [email or web address] Other 07-30-2022 15:45-0500 Body mass index (BMI) [Ratio] 33.25 kg/m2 Maureen Mitchell Other [email or web address] Other 07-30-2022 15:45-0500 Body weight 93.44 kg Maureen Mitchell Other [email or web address] Other 07-30-2022 15:45-0500 Diastolic blood pressure 92 mm[Hg] Maureen Mitchell Other [email or web address] Other 07-30-2022 15:45-0500 Systolic blood pressure 158 mm[Hg] Maureen Mitchell Other [email or web address] Other 11-23-2021 14:27-0400 Blood Pressure Location Ibrahima VANESSAL [facility] 11-23-2021 14:27-0400 Diastolic blood pressure 86 mm[Hg] Ibrahima NILL [facility] 11-23-2021 14:27-0400 Heart rate 72 /min Ibrahima PADNYAL [facility] 11-23-2021 14:27-0400 Respiratory rate 16 /min Ibrahima GONZALEZ [facility] 11-23-2021 14:27-0400 Systolic blood pressure 126 mm[Hg] Ibrahima GONZALEZ [facility] Encounters Encounter Date Encounter Type Care Provider Facility Start: 01-18-2025 End: 01-18-2025 ambulatory Maureen Mitchell MD Work Phone: [facility] Work Phone: Start: 01-18-2025 End: 01-18-2025 Patient encounter procedure Maureen Mitchell MD -[facility] Work Phone: Start: 01-11-2025 End: 01-11-2025 ambulatory Maureen Mitchell MD Work Phone: [facility] Work Phone: Start: 01-11-2025 End: 01-11-2025 [facility] Start: 12-23-2024 Non-patient / Non-visit Maureen badillo MD -[facility] Work Phone: Start: 12-16-2024 ambulatory Neli Portillo Facility:[facility] Start: 12-13-2024 Non-patient / Non-visit Alyssa cage [facility] [place] [facility] Work Phone: Start: 12-07-2024 Non-patient / Non-visit Maureen badillo MD -[facility] Work Phone: Start: 12-05-2024 Non-patient / Non-visit Jackson morales MD -[facility] Work Phone: Start: 12-04-2024 Non-patient / [facility] Work Phone: Start: 12-03-2024 Non-patient / Non-visit Jackson morales MD [facility] Work Phone: Start: 12-02-2024 Non-patient / Non-visit Jackson morales MD [facility] Work Phone: Start: 12-01-2024 Non-patient / Non-visit Jackson morales MD [facility] Work Phone: Start: 11-30-2024 Non-patient / Non-visit Isha garcia MD [facility] Work Phone: Start: 10-20-2024 End: 10-20-2024 ambulatory [facility] Work Phone: Start: 10-20-2024 End: 10-20-2024 Patient encounter procedure [facility] Work Phone: Start: 07-27-2024 End: 07-27-2024 ambulatory [facility] Work Phone: Start: 07-27-2024 End: 07-27-2024 Patient encounter procedure [facility] Work Phone: Start: 06-30-2024 End: 06-30-2024 ambulatory Maureen Mitchell MD Work Phone: [facility] Work Phone: Start: 06-30-2024 End: 06-30-2024 Patient encounter procedure Maureen Mitchell MD Work Phone: [facility] Work Phone: Start: 06-11-2024 Non-patient / Non-visit Maureen Mitchell MD Work Phone: [facility] Work Phone: Start: 06-08-2024 End: 06-11-2024 Evaluation and management of inpatient Selvon F Blanca MD Work Phone: [facility] Start: 05-28-2024 End: 05-28-2024 ambulatory Maureen Mitchell MD Work Phone: [facility] Work Phone: Start: 05-28-2024 End: 05-28-2024 Patient encounter procedure Maureen Mitchell MD Work Phone: [facility] Work Phone: Start: 05-07-2024 End: 05-07-2024 Office outpatient visit 25 minutes Yossi Hunter MD Work Phone: [facility] Comment on above: Heart valve disease; Dilation of aorta ([facility]-HCC); Essential hypertension; BMI 32.0-32.9,adult; Smoker Start: 05-07-2024 End: 05-07-2024 ambulatory [facility] Start: 05-06-2024 Non-patient / Non-visit Maureen Mitchell MD Work Phone: [facility] Work Phone: Start: 04-29-2024 End: 04-29-2024 ambulatory Maureen Mitchell Facility:[facility] Start: 04-29-2024 End: 04-29-2024 Departed Referred Maureen Mitchell MD Work Phone: [facility] [place] Work Phone: Start: 04-29-2024 Encounter for other preprocedural examination Maureen Mitchell [facility] Start: 04-29-2024 End: 04-29-2024 Patient encounter procedure Maureen Mitchell MD Work Phone: [facility] Work Phone: Start: 04-08-2024 Patient encounter status Laura Mitchell MD Work Phone: [facility] Start: 04-08-2024 Preprocedural examination done Maureen Mitchell MD Work Phone: [facility] Start: 04-08-2024 End: 04-08-2024 ambulatory [facility] Work Phone: Start: 04-08-2024 End: 04-08-2024 Encounter for other preprocedural examination Maureen Mitchell MD Work Phone: [facility] Start: 04-08-2024 End: 04-08-2024 Patient encounter procedure [facility] Work Phone: Start: 04-07-2024 End: 04-07-2024 Office outpatient visit 25 minutes Yossi Hunter MD Work Phone: [facility] Comment on above: Pre-operative cleara nce; Pre-op examination; Heart valve disease; Dilation of aorta (CMS-HCC); Essential hypertension; Smoker Start: 04-07-2024 End: 04-07-2024 Preoperative state Yossi Hunter MD Work Phone: [facility] Start: 04-07-2024 End: 04-07-2024 Preprocedural examination done Yossi Hunter MD Work Phone: [facility] Start: 04-07-2024 End: 04-07-2024 ambulatory [facility] Start: 04-07-2024 End: 04-07-2024 Encounter for other preprocedural examination [facility] Start: 04-06-2024 Non-patient / Non-visit Maureen Mitchell MD Work Phone: [facility] Work Phone: Start: 04-01-2024 Non-patient / Non-visit [facility] Work Phone: Start: 03-30-2024 End: 03-30-2024 ambulatory [facility] Work Phone: Start: 03-30-2024 End: 03-30-2024 Patient encounter procedure [facility] Work Phone: Start: 02-26-2024 End: 02-26-2024 ambulatory [facility] Work Phone: Start: 02-26-2024 End: 02-26-2024 Patient encounter procedure [facility] Work Phone: Start: 02-26-2024 Non-patient / Non-visit [facility] Work Phone: Start: 01-30-2024 End: 01-30-2024 ambulatory [facility] Work Phone: Start: 01-30-2024 End: 01-30-2024 Patient encounter procedure [facility] Work Phone: Start: 01-20-2024 Non-patient / Non-visit [facility] Work Phone: Start: 01-20-2024 End: 01-20-2024 ambulatory [facility] Work Phone: Start: 01-20-2024 End: 01-20-2024 Patient encounter procedure [facility] Work Phone: Start: 01-12-2024 Non-patient / Non-visit [facility] Work Phone: Start: 01-12-2024 End: 01-12-2024 ambulatory Bhupinder Shelton MD Facility:[facility] Start: 01-06-2024 Non-patient / Non-visit [facility] Work Phone: Start: 01-06-2024 End: 01-11-2024 Evaluation and management of inpatient TARUN BARRETT [facility] Start: 01-06-2024 Non-patient / Non-visit [facility] Work Phone: Start: 12-30-2023 End: 01-05-2024 Evaluation and management of inpatient SHAIKH ANA PAULA [facility] Comment on above: Syncope, unspecified syncope type (Primary Dx) Start: 12-30-2023 Non-patient / Non-visit [facility] Work Phone: Start: 12-29-2023 Non-patient / Non-visit [facility] Work Phone: Start: 12-28-2023 End: 12-30-2023 Non-patient / Non-visit [facility] Work Phone: Start: 12-28-2023 Non-patient / Non-visit [facility] Work Phone: Start: 12-18-2023 End: 12-18-2023 ambulatory [facility] Work Phone: Start: 12-18-2023 End: 12-18-2023 Patient encounter procedure [facility] Work Phone: Start: 12-11-2023 End: 12-11-2023 ambulatory [facility] Work Phone: Start: 12-11-2023 End: 12-11-2023 Patient encounter procedure [facility] Work Phone: Start: 11-11-2023 End: 11-11-2023 ambulatory DARLENE GONZALEZ Not Available Start: 11-10-2023 Non-patient / Non-visit [facility] Work Phone: Start: 11-10-2023 Non-patient / Non-visit [facility] Work Phone: Start: 10-22-2023 End: 10-22-2023 ambulatory DOROTHY B APLING Not Available Start: 10-22-2023 End: 10-22-2023 ambulatory DOROTHY B APLING Not Available Start: 10-14-2023 End: 10-14-2023 ambulatory [facility] Work Phone: Start: 10-14-2023 End: 10-14-2023 Patient encounter procedure [facility] Work Phone: Start: 09-22-2023 End: 09-22-2023 ambulatory [facility] Work Phone: Start: 09-22-2023 End: 09-22-2023 Patient encounter procedure [facility] Work Phone: Start: 09-12-2023 End: 09-12-2023 ambulatory [facility] Work Phone: Start: 09-12-2023 End: 09-12-2023 Patient encounter procedure [facility] Work Phone: Start: 09-03-2023 Non-patient / Non-visit [facility] Work Phone: Start: 08-26-2023 End: 08-26-2023 ambulatory [facility] Work Phone: Start: 08-26-2023 End: 08-26-2023 Patient encounter procedure [facility] Work Phone: Start: 07-23-2023 Non-patient / Non-visit [facility] Work Phone: Start: 07-23-2023 Non-patient / Non-visit [facility] Work Phone: Start: 07-15-2023 End: 07-15-2023 Subsequent hospital visit by physician Jyotsna [id number] [facility] Comment on above: Essential hypertensi on; Shortness of breath; Angina pectoris, unstable (CMS/HCC) Start: 07-15-2023 End: 07-15-2023 ambulatory [facility] Start: 07-07-2023 End: 07-07-2023 ambulatory Maureen Mitchell Other [email or web address] Other Start: 07-07-2023 Telephone encounter Maureen Mitchell [facility] Start: 07-01-2023 End: 07-01-2023 Office outpatient visit 25 minutes Yossi Hunter MD Work Phone: [facility] Comment on above: Angina pectoris, uns table (CMS/HCC) (Primary Dx); Dilation of aorta (CMS/HCC); Essential hypertension; Heart valve disease; Shortness of breath; Smoker; BMI 32.0-32.9,adult Start: 07-01-2023 End: 07-01-2023 ambulatory [facility] Start: 06-19-2023 End: 06-19-2023 ambulatory Maureen Mitchell Other [email or web address] Other Start: 06-19-2023 Office outpatient vi sit 15 minutes Maureen Mitchell [facility] Start: 06-13-2023 End: 06-13-2023 Subsequent hospital visit by physician Jyotsna Alcala305 Echo/Vasc 3 [facility] Comment on above: Shortness of breath; Heart valve disease; Dizziness; Dilation of aorta (CMS/HCC) Start: 06-13-2023 End: 06-13-2023 ambulatory [facility] Start: 06-02-2023 End: 06-02-2023 ambulatory Maureen Mitchell Other [email or web address] Other Start: 06-02-2023 Telephone encounter Maureen Mitchell [facility] Start: 05-27-2023 End: 05-27-2023 Office outpatient new 45 minutes Yossi Hunter MD Work Phone: [facility] Comment on above: Shortness of breath; Essential hypertension; BMI 32.0-32.9,adult; Smoker; Heart valve disease; Dizziness; Dilation of aorta (CMS/HCC) Start: 05-27-2023 End: 05-27-2023 ambulatory [facility] Start: 05-15-2023 End: 05-15-2023 ambulatory Maureen Mitchell Other [email or web address] Other Start: 05-15-2023 Telephone encounter Maureen Mitchell [facility] Start: 05-01-2023 End: 05-01-2023 ambulatory Maureen Mitchell Other [email or web address] Other Start: 05-01-2023 Telephone encounter Maureen Mitchell [facility] Start: 04-21-2023 End: 04-21-2023 ambulatory Maureen Mitchell Other [email or web address] Other Start: 04-21-2023 Telephone encounter Maureen Mitchell [facility] Start: 04-03-2023 (Televisit) Televisit Maureen Mitchell [facility] Start: 04-03-2023 End: 04-03-2023 ambulatory Maureen Mitchell Other [email or web address] Other Start: 04-03-2023 Telephone encounter Maureen Mitchell [facility] Start: 04-01-2023 End: 04-01-2023 ambulatory Maureen Mitchell Other [email or web address] Other Start: 04-01-2023 Telephone encounter Maureen Mitchell [facility] Start: 03-13-2023 End: 03-13-2023 ambulatory Maureen Mitchell Other [email or web address] Other Start: 03-13-2023 Office outpatient vi sit 25 minutes Maure[facility] Mitchell [facility] [facility] Start: 03-13-2023 Telephone encounter Maureen Mitchell [facility] Start: 02-13-2023 End: 02-13-2023 ambulatory Maureen Mitchell Other [email or web address] Other Start: 02-13-2023 Telephone encounter Maureen Mitchell [facility] Start: 01-30-2023 End: 01-30-2023 ambulatory Maureen Mitchell Other [email or web address] Other Start: 01-30-2023 Telephone encounter Maureen Mitchell [facility] Start: 01-16-2023 End: 01-16-2023 ambulatory Maureen Mitchell Other [email or web address] Other Start: 01-16-2023 Telephone encounter Maureen Mitchell [facility] Start: 12-31-2022 End: 12-31-2022 ambulatory Maureen Mitchell Other [email or web address] Other Start: 12-31-2022 Telephone encounter Maureen Mitchell [facility] Start: 12-06-2022 End: 12-06-2022 ambulatory Maureen Mitchell Other [email or web address] Other Start: 12-06-2022 Telephone encounter Maureen Mitchell [facility] Start: 11-18-2022 End: 11-18-2022 ambulatory Maureen Mitchell Other [email or web address] Other Start: 11-18-2022 Telephone encounter Maureen Mitchell [facility] Start: 11-06-2022 End: 11-06-2022 ambulatory Maureen Mitchell Other [email or web address] Other Start: 11-06-2022 Telephone encounter Maureen Mitchell [facility] Start: 09-19-2022 End: 09-19-2022 ambulatory Maureen Mitchell Other [email or web address] Other Start: 09-19-2022 Telephone encounter Maureen Mitchell [facility] Start: 09-10-2022 End: 09-10-2022 ambulatory Maureen Mitchell Other [email or web address] Other Start: 09-10-2022 Telephone encounter Maureen Mitchell [facility] Start: 08-22-2022 End: 08-22-2022 ambulatory Maureen Mitchell Other [email or web address] Other Start: 08-22-2022 Telephone encounter Maureen Mitchell [facility] Start: 08-19-2022 End: 08-19-2022 ambulatory Otoniel Robin Other [email or web address] Other Start: 08-19-2022 Telephone encounter Otoniel Robin [employer] Start: 07-30-2022 End: 07-30-2022 ambulatory Maureen Mitchell Other [email or web address] Other Start: 07-30-2022 Office outpatient vi sit 25 minutes Maureen Mitchell [facility] Start: 07-25-2022 End: 07-25-2022 ambulatory Maureen Mitchell Other [email or web address] Other Start: 07-25-2022 Telephone encounter Maureen Mitchell [facility] Start: 07-24-2022 End: 07-24-2022 ambulatory Maureen Mitchell Other [email or web address] Other Start: 07-24-2022 Telephone encounter Maureen Mitchell [facility] Start: 03-29-2022 End: 03-30-[address] MAUREEN MITCHELL Facility:[facility] Start: 03-29-2022 Adult health examination Laura Mitchell Other [email or web address] Other Start: 03-25-2022 End: 03-26-[address] MAUREEN MITCHELL Facility:[facility] Start: 12-28-2021 End: 01-15-2022 ambulatory MAUREEN MITCHELL Facility:[facility] Start: 12-05-2021 Encounter for genera l adult medical examination without abnormal findings DR MAUREEN MITCHELL [facility] Start: 12-04-2021 End: 12-05-[address] IBRAHIMA GONZALEZ Facility:[facility] Start: 12-04-2021 End: 12-05-2021 Encounter for general adult medical examination without abnormal findings DR MAUREEN MITCHELL Facility:[facility] Start: 11-23-2021 End: 11-23-2021 Patient encounter procedure Ibrahima GONZALEZ [facility] Start: 11-03-2021 End: 11-03-[address] CHONG GUTIERREZ Facility: Start: 02-09-2018 End: 02-09-2018 Patient encounter RONAL Esparza [facility] Start: 02-06-2018 End: 02-11-[address] [facility] Procedures Date Procedure Procedure Detail Performing Clinician [...] Ecg routine ecg w/least 12 lds w/i&r Yossikayla Hunter MD Work Phone: Start: 04-01-2024 MRSA [...] 01-02-2024 Blood count complete auto&auto difrntl wbc Sandy Harvey MD Work Phone: Start: 01-01-2024 End: 01-01-2024 Calcium ionized Rachel Brewer DO Work Phone: Start: 01-01-2024 LACTATE, SEPSIS Rachel Brewer DO Work Phone: Start: 01-01-2024 Vascular embolization or occlusion hemorrhage Lola Quinones CHEF HEAD - PSYCHIATRIC ARNP Work Phone: Start: 01-01-2024 Ecg routine ecg [...] Start: 01-01-2024 End: 01-01-2024 ESOPHAGOGASTRODUODENOSCOPY CONTROL HEMORRHAGE Sandy Harvey MD Work Phone: Start: 01-01-2024 End: 01-01-2024 ESOPHAGOGASTRODUODENOSCOPY SCLEROTHERAPY Sandy Harvey MD Work Phone: Start: 01-01-2024 Blood count hemoglobin Sandy Harvey MD Work Phone: Start: 01-01-2024 Assay of magnesium Suzanne Celeste MD Work Phone: Start: 01-01-2024 BASIC METABOLIC PANEL W/ REFLEX TO MG FOR LOW K Sandy Harvey MD Work Phone: Start: 01-01-2024 Hepatic function panel Suzanne Bajwa Work Phone: Start: 01-01-2024 Blood count hemoglobin Suzanne Bajwa Work Phone: Start: 01-01-2024 PREVIOUS SPECIMEN Suzanne Celeste MD Work Phone: Start: 12-31-2023 Blood count hemoglobin Sandy Harvey MD Work Phone: Start: 12-31-2023 Ecg routine ecg w/least 12 lds trcg only w/o i&r Suzanne Celeste MD Work Phone: Start: 12-31-2023 Blood count hemoglobin Sandy Harvey MD Work Phone: Start: 12-31-2023 Echo tthrc r-t 2d w/wom-mode compl spec&colr d Michael Arellano MD Work Phone: Start: 12-31-2023 Toxin/antitoxin assay tissue culture Michael Arellano MD Work Phone: Start: 12-31-2023 End: 12-31-2023 Prothrombin time Christina Watkins se CHEF HEAD - PSYCHIATRIC ARNP Work Phone: Start: 12-30-2023 End: 12-31-2023 Basic [...] Work Phone: Start: 12-30-2023 Blood count hemoglobin Sandy Harvey MD Work Phone: Start: 12-28-2023 Blood [...] Start: 06-13-2023 TRANSTHORACIC ECHO (TTE) COMPLETE YOSSI ABIJUNAID Start: 06-13-2023 Echo tthrc r-t 2d w/wom-mode compl spec&colr d Yossi Hunter MD Work Phone: Start: 02-09-2018 INCENTIVE SPIROMETRY RT RONAL ERJI Start: 02-09-2018 DISCHARGE PATIENT RONAL REJI Start: [...] NOTIFY PHYSICIAN (SPECIFY) RONAL REJI Start: 02-09-2018 PLACE INTERMITTENT PNEUMATIC COMPRESSION [...] Colonoscopy Ibrahima GONZALEZ Start: 05-26-2017 Esophagogastroduodenoscopy Ibrahima GONZALEZ Start: 02-09-2016 Substance abuse counseling Maureen Mitchell Other Start: 09-20-2014 General examination of patient Maureen boone Other Start: 09-20-2014 Screening mammography Maureen Mitchell Other Appendectomy Ibrahima NILL Circumferential body lift Kori devine NILL Excision of lumbar intervertebral disc Ibrahima NILL Comment on above: L4-L5 Exploratory laparotomy Marty el NILL 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 Keli Rabago MD Work Phone: Lisney-en-Y gastrojejunostomy Ibrahima NILL Screening for malign ant neoplasm of breast Maureen Mitchell Other Total abdominal hyst erectomy with bilateral salpingo-oophorectomy Ibrahima NILL Plan of Treatment Date Care Activity Detail Author Start: 10-21-2027 Screening for malign ant neoplasm of colon [facility] Start: 10-06-2024 End: 10-06-2024 Patient encounter procedure 10/06/2024 10:00 AM EDT Office Visit [facility] [address] [phone] Yossi Hunter MD [address] [facility] Medical Office [address], [address] [phone] [facility] Start: 04-29-2024 EKG 12 channel panel [facility] Start: 02-03-2024 Patient referral [facility] Work Phone: Start: 01-25-2024 COVID-19 Vaccine () COVID-19 Vaccine ( season) [facility] Start: 09-01-2024 COVID-19 Vaccine ( season) COVID-19 Vaccine ( season) [facility] Start: 01-25-2024 Influenza vaccination Influenza Vacc ine (#1) [facility] Start: 01-20-2024 Patient referral [facility] Work Phone: Start: 12-30-2023 Annual Wellness Visi t (Medicare) Annual Wellness Visit (Medicare) [facility] Start: 12-25-2023 Influenza vaccination Flu vaccine (# 1) [facility] Start: 12-18-2023 Patient referral [facility] Work Phone: Start: 09-30-2023 End: 09-30-2023 Patient encounter procedure 09/30/2023 10:00 AM EDT Office Visit [facility] [address] [phone] Yossi Hunter MD [address] [facility] Medical Office [facility], [address] [id number] [facility] Start: 07-01-2023 End: 07-01-2024 CTA Heart and Coronary arteries WO and W contrast IV CT angio coronary art with heartflow if score >30% Imaging Routine Essential hypertension Shortness of breath Angina pectoris, unstable (CMS/HCC) Expected: 07/01/2023 (Approximate), Expires: 07/01/2024 [facility] Service Area Work Phone: Comment on above: Expected: 07/01/2023 (Approximate), Expires: 07/01/2024 Start: 07-01-2023 End: 07-01-2023 Patient encounter procedure 07/01/2023 2:00 PM EST Office Visit [facility] [address] [place] [phone] Yossi Hunter MD [address] [facility] Medical Office [facility], [facility] [address] [place], [place] [phone] [facility] Start: 05-27-2023 End: 05-27-2024 CT Chest WO contrast CT chest wo IV contrast Imaging Routine Heart valve disease Dilation of aorta (CMS/HCC) Expected: 05/27/2023 (Approximate), Expires: 05/27/2024 [facility] Work Phone: Comment on above: Expected: 05/27/2023 (Approximate), Expires: 05/27/2024 Start: 05-27-2023 End: 05-27-2025 US Heart Transthoracic Transthoracic Echo (TTE) Complete Echocardiography Routine Shortness of breath Heart valve disease Dizziness Dilation of aorta (CMS/HCC) Expected: 05/27/2023 (Approximate), Expires: 05/27/2025 [facility] Service Area Work Phone: Comment on above: Expected: 05/27/2023 (Approximate), Expires: 05/27/2025 Start: 01-24-2023 COVID-19 Vaccine () COVID-19 Vaccine () [facility] Start: 01-24-2023 Influenza vaccination Influenza Vacc ine (#1) [facility] Start: 07-08-2021 COVID-19 Vaccine (4 - Pfizer series) COVID-19 Vaccine (4 - Pfizer series) [facility] Start: 02-03-2021 Screening for malign ant neoplasm of breast Breast cancer screen [facility] Start: 2018 Shingles vaccine (1 of 2) Shingles vaccine (1 of 2) [facility] Start: 2018 Zoster Vaccines (1 o f 2) Zoster Vaccines (1 of 2) [facility] Start: 2013 Screening for malign ant neoplasm of colon [facility] Start: 2008 Lipid panel Lipids [facility] Start: 2008 Screening for malign ant neoplasm of breast Mammogram [facility] Start: 10-06-2003 Diabetes screen Diabetes screen [facility] Start: 05-17-1997 DTaP/Tdap/Td vaccine (1 - Tdap) DTaP/Tdap/Td vaccine (1 - Tdap) [facility] Start: 05-17-1997 DTaP/Tdap/Td Vaccine s (1 - Tdap) DTaP/Tdap/Td Vaccines (1 - Tdap) [facility] Start: 1989 Screening for malign ant neoplasm of cervix [facility] Start: 10-06-1987 Hepatitis B vaccine (1 of 3 - 19+ 3-dose series) Hepatitis B vaccine (1 of 3 - 19+ 3-dose series) [facility] Start: 1986 Diabetes mellitus screening Diabetes Screening [facility] Start: 1986 Hepatitis C screening [facility] Start: 10-06-1983 HIV screening HIV screen [facility] Start: 1980 Depression Screen Depression Screen [facility] Start: 1974 Pneumococcal 0-64 ye ars Vaccine (1 of 2 - PCV) Pneumococcal 0-64 years Vaccine (1 of 2 - PCV) [facility] Start: 1974 Pneumococcal Vaccine : Pediatrics (0 to 5 Years) and At-Risk Patients (6 to 64 Years) (1 - PCV) Pneumococcal Vaccine: Pediatrics (0 to 5 Years) and At-Risk Patients (6 to 64 Years) (1 - PCV) [facility] Start: 1974 Pneumococcal Vaccine : Pediatrics (0 to 5 Years) and At-Risk Patients (6 to 64 Years) (1 of 2 - PCV) Pneumococcal Vaccine: Pediatrics (0 to 5 Years) and At-Risk Patients (6 to 64 Years) (1 of 2 - PCV) [facility] Start: 1968 HIV screening HIV Screening [facility] Start: 1968 Lipid panel Lipid Panel [facility] Start: 1968 Medicare Annual Wellness Visit Medicare Annual Wellness Visit (AWV) [facility] Start: 1968 Screening for malign ant neoplasm of colon [facility] Start: 1968 Screening for osteoporosis Bone Density Scan [facility] Start: 1968 Yearly Adult Physical Yearly Adult P hysical [facility] End: 01-02-2024 aPTT in Blood by Coagulation assay APTT Lab Routine Post Transfusion Post Transfusion Post Transfustion for 1 Occurrences starting 01/01/2024 until 01/02/2024 [facility] Comment on above: Post Transfusion Pos t Transfusion Post Transfustion for 1 Occurrences starting 01/01/2024 until 01/02/2024 End: 06-15-2024 Basic metabolic 2000 panel - Serum or Plasma Basic Metabolic Panel Lab Routine Daily for 1 Weeks starting 06/09/2024 until 06/15/2024, 3 completed [employer] Comment on above: Daily for [address] arting 06/09/2024 until 06/15/2024, 3 completed End: 01-06-2024 Basic metabolic 2000 panel - Serum or Plasma Basic Metabolic Panel Lab Routine Daily for 3 Days starting 01/04/2024 until 01/06/2024, 2 completed [facility] Comment on above: Daily for 3 Days sta rting 01/04/2024 until 01/06/2024, 2 completed End: 01-06-2024 CBC W Auto Differential panel - Blood CBC with Auto Differential Lab Routine Daily for 3 Days starting 01/04/2024 until 01/06/2024, 2 completed [facility] Comment on above: Daily for 3 Days sta rting 01/04/2024 until 01/06/2024, 2 completed Comprehensive metabo lic 2000 panel - Serum or Plasma [facility] Continuous pulse oximetry Pulse oximetry, continuous Respiratory Care Routine Every 4hr until discontinued starting 01/02/2024 [facility] Comment on above: Every 4hr until disc ontinued starting 01/02/2024 End: 01-02-2024 EKG 12 Lead EKG 12 Lead ECG Routine One Time for 1 Occurrences starting 01/02/2024 until 01/02/2024 [facility] Work Phone: Comment on above: One Time for 1 Occur rences starting 01/02/2024 until 01/02/2024 End: 06-15-2024 Hemoglobin and Hematocrit Hemoglobin and Hematocrit Lab Routine Daily for 1 Weeks starting 06/09/2024 until 06/15/2024, 3 completed [employer] Comment on above: Daily for [address] arting 06/09/2024 until 06/15/2024, 3 completed End: 01-15-2024 Hemoglobin and Hematocrit Hemoglobin and Hematocrit Lab Routine Post Transfusion Post Transfusion Post Transfustion until discontinued starting 01/01/2024 [facility] Comment on above: Post Transfusion Pos t Transfusion Post Transfustion until discontinued starting 01/01/2024 End: 01-07-2024 Hemoglobin and Hematocrit Hemoglobin and Hematocrit Lab Routine Every 12 hours (Lab) for 3 Days starting 01/04/2024 until 01/07/2024, 2 completed [facility] Comment on above: Every 12 hours (Lab) for 3 Days starting 01/04/2024 until 01/07/2024, 2 completed MR Brain WO contrast [facility] Oxygen therapy [[facility] Data Set] Initiate Oxygen Therapy Protocol Respiratory Care Routine As Needed until discontinued starting 06/08/2024 [employer] Comment on above: As Needed until disc ontinued starting 06/08/2024 Oxygen therapy [[facility] Data Set] Initiate Oxygen Therapy Protocol Respiratory Care Routine As Needed until discontinued starting 12/30/2023 [facility] Work Phone: Comment on above: As Needed until disc ontinued starting 12/30/2023 Patient Education Low back pain in adults [facility] Work Phone: Patient referral [facility] Work Phone: End: 01-01-2024 PREPARE RBC (CROSSMATCH), 1 Units PREPARE RBC (CROSSMATCH), 1 Units Blood Bank Routine Once for 1 Occurrences starting 01/01/2024 until 01/01/2024 [facility] Comment on above: Once for 1 Occurrenc es starting 01/01/2024 until 01/01/2024 End: 01-02-2024 Protime-INR Protime-INR Lab Routine Post Transfusion Post Transfusion Post Transfustion for 1 Occurrences starting 01/01/2024 until 01/02/2024 [facility] Work Phone: Comment on above: Post Transfusion Pos t Transfusion Post Transfustion for 1 Occurrences starting 01/01/2024 until 01/02/2024 Spirometry panel Incentive papi metry Respiratory Care Routine Every 2hr while awake until discontinued starting 06/08/2024 [employer] Comment on above: Every 2hr while awak e until discontinued starting 06/08/2024 Urine culture [facility] Immunizations Immunization Date Immunization Notes Care Provider Smitha patino 05-13-2021 influenza virus vaccine, unspecified formulation Yossi Hunter MD Work Phone: [facility] Work Phone: 08-22-2020 COVID-19 Vaccine Pfi zer - Documentation Purposes Only Maureen Mitchell Other [facility] 08-02-2020 COVID-19 Vaccine Pfi zer - Documentation Purposes Only Maureen Mitchell Other [facility] 04-28-2020 influenza virus vaccine, split virus (incl. purified surface antigen) Maureen Mitchell Other [email or web address] Other 04-28-2020 influenza virus vaccine, unspecified formulation [facility] 03-06-2016 influenza virus vaccine, split virus (incl. purified surface antigen) Maureen Mitchell Other [email or web address] Other 03-06-2016 influenza virus vaccine, unspecified formulation [facility] Payers Date Payer Category Payer Unknown [id number] 2024 Private Health Insurance [facility] [id number] 2024 Self-pay [id number] 2023 Managed Care (Private) [facility] Member Subscriber Plan / Payer (Effective 2023-Present) Name: Candy Booth Relation to Subscriber: Self Name: Candy Booth Payer ID: [id number] (NAIC) Type: Not on file Address: [place] [id number] 2022 Medicare 2022 Medicare [id number] 2022 Private Health Insurance [id number] 2022 Private Health Insurance [id number] 2014 Unknown [id number] 1968 Unknown [id number] 2.16.840.1.984285.3.579.2. 647 1968 Unknown [id number] 2.16.840.1.502261.3.579.2. 593 1968 Unknown [id number] 2.16.840.1.569132.3.579.2. 593 1968 Unknown [id number] 2.16.840.1.858263.3.579.2. 593 1968 Unknown [id number] 2.16.840.1.499878.3.579.2. 593 1968 Unknown [id number] 2.16.840.1.485691.3.579.2. 593 1968 Unknown [id number] 2.16.840.1.745930.3.579.2. 1259 1968 Unknown [id number] 2.16.840.1.705758.3.579.2. 1259 1968 Unknown [id number] 2.16.840.1.821087.3.579.2. 125 1968 Unknown [id number] 2.16.840.1.258597.3.579.2. 1259 1968 Unknown [id number] 2.16.840.1.844649.3.579.2. 1259 1968 Unknown [id number] 2.16.840.1.935160.3.579.2. 1259 1968 Unknown [id number] 2.16.840.1.617406.3.579.2. 175 1968 Unknown [id number] 2.16.840.1.547191.3.579.2. 175 1968 Unknown [id number] 2.16.840.1.563158.3.579.2. 196 1968 Unknown [id number] 2.16.840.1.132451.3.579.2. 1246 1968 Unknown [id number] 2.16.840.1.558198.3.579.2. 6 1968 Unknown [id number] 2.16.840.1.555388.3.579.2. 4 1968 Unknown [id number] 2.16.840.1.140683.3.579.2. 1243 1968 Unknown [id number] 2.16.840.1.081889.3.579.2. 4 1968 Unknown [id number] 2.16.840.1.267633.3.579.2. 1243 1968 Unknown [id number] 2.16.840.1.112187.3.579.2. 93 1968 Unknown [id number] 2.16.840.1.762033.3.579.2. 727 1959 Private Health Insurance [id number] Private Health Insurance [id number] Unknown [id number] 2.16.840.1.334722.3.579.2. 531 Unknown [id number] 2.16.840.1.502429.3.579.2. 531 Social History Date Type Detail Facility Start: 11-23-2021 Tobacco smoking status Heavy t obacco smoker (finding) [facility] Tobacco smoking status Never [facility] Start: 05-27-2023 End: 12-30-2023 Sex Assigned At Female [facility] Start: 05-27-2023 End: 04-27-2024 Tobacco smoking status NHIS Occasional tobacco smoker [facility] Work Phone: Start: 05-26-2014 End: 05-26-2021 History of tobacco use Cigarette Smoker [facility] Work Phone: Start: 05-27-2023 End: 12-30-2023 Cigarettes smoked current (pack per day) - Reported 0.5 [facility] Start: 02-06-2018 End: 05-27-2023 Tobacco use and exposure Smokeless tobacco non-user [facility] Work Phone: Start: 05-27-2023 Alcohol intake Not Asked [facility] Work Phone: Start: 05-27-2023 Alcohol Comment rarely [facility] Work Phone: Start: 1970 Sex Assigned At Not on file [facility] Work Phone: Start: 05-17-2023 End: 05-07-2024 Exposure to SARS-CoV-2 (event) Not sure [facility] Start: 07-01-2023 End: 06-09-2024 Alcohol intake Current drinker of alcohol (finding) [facility] Work Phone: Start: 05-26-2014 End: 05-26-2021 Tobacco smoking status NHIS Smoker (finding) [facility] Start: 1970 Sex Assigned At Female F [facility] Start: 04-07-2024 End: 12-30-2024 Tobacco smoking status NHIS Ex-smoker [facility] Work Phone: Start: 04-07-2024 Alcohol Comment rarely, 1x a , month or less [facility] Work Phone: Start: 08-14-2018 End: 04-08-2024 Sex Female (finding) [facility] Has the electric, ga s, oil, or water company threatened to shut off services in your home in past 12Mo No [employer] (I/We) worried alma er (my/our) food would run out before (I/we) got money to buy more. Never true [facility] Start: 02-06-2018 End: 06-08-2024 Tobacco Comment started at age 13 for 4 yrs, quit then started back in 2014 [facility] Start: 06-08-2024 Alcohol Comment socially [employer] Start: 05-26-2014 Tobacco smoking stat us DCIS Smokes tobacco daily [facility] Start: 01-02-2024 Alcoholic beverage intake Current non-drinker of alcohol (finding) [facility] Sexual Orientation [facility] Medical Equipment Procedure Code Equipment Code Equipment Origin al Text Equipment Identifier Dates Floseal Hemostat Matrx 5ml Needle Free [id number] Start: 02-09-2018 Clip Braided 360 Catheter Resolution Ultra - [id number], [id number] FDA Start: 01-07-2024 Comment on above: Description: Clip pl aced at GJ junction Clip Hemostasis Mantis 2.8mm X 235cm - [id number], [id number] FDA Start: 01-07-2024 Comment on above: Description: Clip pl aced at GJ junction Allograft [place] 50x25 Mm 24 Cc Bioadapt - [id number] Start: 06-08-2024 Set Screw 5.5-6. 0 - [id number] Start: 06-08-2024 Screw Poly Solid 6.5x40 - [id number] Start: 06-08-2024 Screw Poly Solid 6.5x45 - [id number] Start: 06-08-2024 Dhaval Ti Prebent 5.5x35 - [id number] Start: 06-08-2024 Functional Status Date Assessment Result Facility 11-23-2021 Functional Status N/A [facility] Clinical Notes 10-11-2020 to 10-20-2024 Note Date & Type Note Facility 10-20-2024 Evaluation note Diagnosis Onset Date Resolution Anxiety acute October 20, 2024 3:30pm Chronic pain syndrome acute October 20, 2024 3:30pm [facility] Work Phone: 1(369) 913-821003-04-2025 Evaluation note* Diagnosis Onset Date Resolution Status Admit Date Anxiety acute July 27 4:03pm Chronic pain syndrome acute Mar 2024 4:03pm [facility] Work Phone: 1(918) 110-911203-04-2025 Evaluation note* Diagnosis Onset Date Resolution Status Admit Date Anxiety acute July 27 4:03pm Chronic pain syndrome acute Mar 2024 4:03pm Anxiety acute October 20, 2024 3:30pm Chronic pain syndrome acute October 20, 2024 3:30pm [facility] Work Phone: 1(675) 399-249001-17-2025 History of Present illness Narrative* Genevieve Jones [...] PT/OT Tawana Vidal MD, MD * Donita Cutler WOOL SHEARING SUPERVISOR - 06/11/2024 9:08 AM EST [facility] INPATIENT PHYSICAL THERAPY DAILY NOTE [facility] ORTHOPEDICS 7K - 7K-18/018-A Discharge Recommendations: Continue to assess pending progress and Subacute/Custodial Facility Equipment Recommendations: No Time In: 904 Time Out: 928 Timed Code Treatment Minutes: [...] Level of Assist for Transfers: Independent Active Home Care Associate: No Additional Comments: Patient ambulated household distances [...] doingit twice a week for apts. PAIN: 02/02: dheeraj horses L LE and buttocks and [...] Exercise: None pt declined Functional Outcome Measures: [facility] (6 CLICK) BASIC MOBILITY AM-PAC Inpatient Mobility [...] appropriate AD times 20 feet with CGA. Mcfp Goals Time Frame for Back End Web Developer Goals : n/a due to short length of stay Following session, patient left in safe position with all fall risk precautions in place. * Neli Smith OTA - 06/11/2024 8:46 AM EST [facility] ORTHOPEDICS 7K Occupational Therapy Daily Note Discharge Recommendations: 24 hour assistance or supervision, Home with assist as needed, Home withassistance of aide, and Home with Home Health OT-Recommend SNF, Pt. declines Equipment Recommendations: No Time In: 816 Time Out: 46 Timed Code Treatment Minutes: 29 Minutes Minutes: 29 Date: 06/11/2024 Patient Name: Candy Booth, Gender: female Room: [facility]18/018-A : 1970 (53 y.o.) Referring Practitioner: David [...] injury in the past year?: Yes Active Home Care Associate: No Patient's Home Care Associate Info: Spouse completes Additional Comments: Patient ambulated household distances with rollator walker with h/o mulitple falls. SUBJECTIVE:RN okayed OT session. Pt. In bed pleasant and agreeable to participate. PAIN: /10: low back Vitals: Vitals not assessed per [...] no further DME/AE needs, Precautions reviewed. Modified [place]: Current Functional Status: Not Applicable ASSESSMENT: Activity [...] increase indep withinhome environment. Additional Goals?: No Mcfp Goals Time Frame for Back End Web Developer Goals : No LTGs d/t short estimated [...] Castillo, PT - 06/10/2024 2:09 PM EST [facility] INPATIENT PHYSICAL THERAPY DAILY NOTE [facility] ORTHOPEDICS 7K - 7K-18/018-A Discharge Recommendations: Subacute/Custodial Facility Equipment Recommendations: No Time In: 0930 Time Out: 1010 Timed Code Treatment Minutes: [...] Level of Assist for Transfers: Independent Active Home Care Associate: No Additional Comments: Patient ambulated household distances [...] independence with functional mobility. Functional Outcome Measures: [facility] (6 CLICK) BASIC MOBILITY AM-[facility] Inpatient Mobility Raw Score : 14 AM-[facility] Inpatient T-Scale Score : 38.1 Modified Dominick: [...] appropriate AD times 20 feet with CGA. Back End Web Developer Goals Time Frame for Back End Web Developer Goals : n/a due to short length of stay Following session, patient left in safe position with all fall risk precautions in place. * Neli Smith OTA - 06/10/2024 11:56 AM EST [facility] ORTHOPEDICS 7 Occupational Therapy Daily Note Discharge Recommendations: Continue to assess pending progress and Subacute/[place] Pt. Declining would recommend 24 hour care and Home Health with OT if returning home. Equipment Recommendations: No Time In: 1129 Time Out: 1156 Timed Code Treatment Minutes: 27 Minutes Minutes: 27 Date: 06/10/2024 Patient Name: Candy Booth, Gender: female Room: [address] [place] [address] : 1970 (53 y.o.) Referring Practitioner: David [...] injury in the past year?: Yes Active Home Care Associate: No Patient's Home Care Associate Info: Spouse completes Additional Comments: Patient ambulated [...] ,and with increased time for completion. to [facility] . IADL: Not Tested BALANCE: Sitting Balance: Stand By Assistance. Standing Balance: Contact Guard Assistance. With vcs for safety BED MOBILITY: Not Tested TRANSFERS: Sit to Stand: Minimal Assistance, X 1. Stand to Sit: Contact Guard Assistance, Minimal Assistance. FUNCTIONAL MOBILITY: Assistive Device: Rolling Walker Assist Level: Contact Guard Assistance and Minimal Assistance. Distance: 1 foot to BSC ADDITIONAL ACTIVITIES: Pt. Provided education on LHAE use and precautions. Pt. Unable to trial this date. Would benefit from further review. Functional Outcome Measures: AM-PAC Inpatient Daily Activity Raw Score: 16 Modified Dominick: Current Functional Status: Not Applicable ASSESSMENT: Activity [...] increase indep withinhome environment. Additional Goals?: No Back End Web Developer Goals Time Frame for Mcfp Goals : No LTGs d/t short estimated length of stay. Following session, patient left in safe position with all fall risk precautions in place. * Genevieve Jones, RN - 06/10/2024 10:30 AM EST Phone [...] Intake/Output Summary (Last 24 hours) at 06/10/2024 0649 Last data filed at 06/10/2024 0418 Gross [...] Castillo, PT - 06/09/2024 3:54 PM EST [facility] INPATIENT PHYSICAL THERAPY EVALUATION [facility] ORTHOPEDICS 7K - 7K-18/018-A Discharge Recommendations: Subacute/Custodial Facility Equipment Recommendations: No Time In: 1500 [...] injury in the past year?: Yes Active Home Care Associate: No Additional Comments: Patient ambulated household distances [...] Not Tested Exercise: None Functional Outcome Measures: [facility] (6 CLICK) BASIC MOBILITY AM-[facility] Inpatient Mobility Raw Score : 8 AM-[facility] Inpatient T-Scale Score : 28.52 Modified [place]: Premorbid Functional Status: Not Applicable Current Functional [...] decrease fall risk and return pt to PLOF. Requires PT Follow-Up: Yes Patient Education: . [...] and gait to be assessed when appropriate. Back End Web Developer Goals Time Frame for Mcfp Goals : n/a due to short length of stay Following session, patient left in safe position with all fall risk precautions in place. * Ariana Bravo OT - 06/09/2024 1:47 PM EST [facility] 7K EVALUATION Discharge Recommendations: Continue to assess pending progress, Subacute/Custodial Facility Equipment Recommendations: No Time In: 1041 [...] wheelchair and able to pivot transfer Active Home Care Associate: No Patient's Home Care Associate Info: Spouse completes VISION:WFL HEARING: WFL COGNITION: [...] to faint and has ringing in ears. Echocardiograph Tech sat pt on EOB and RN notified. Vitals showing tachycardia with HR 148. Activity Tolerance: Patient tolerance of treatment: Good treatment tolerance Functional Outcome Measures: AM-PAC Inpatient Daily Activity Raw Score: 16 Modified [place]: Premorbid Functional Status: Not Applicable Current Functional [...] increase indep withinhome environment. Additional Goals?: No Back End Web Developer Goals Time Frame for Back End Web Developer Goals : No LTGs d/t short estimated length of stay. AM-PAC Inpatient Daily Activity Raw Score: 16 AM-[facility] Inpatient ADL T-Scale Score : 35.96 Following [...] for drain care YOON Plata * Alyssa Lantigua, RN - 06/08/2024 7:14 PM EST Pt admitted to 7K18 via bed from PACU . Complaints: Lumbar stenosis with neurogenic claudication. IV normal saline infusing into the hand right, condition patent and no redness at a rate of 125 mls/ hour with about 300 mls in the bag still. IV site free of s/s of infection or infiltration. Vital signs obtained. Assessment and data collection initiated. Two nurse skin assessment performed by Alyssa RN and Eliot RN. Oriented to room. Policies and procedures for 5K explained. All questions answered with no further questions at this time. Fall prevention and safety brochure discussed with patient. Bed alarm on. Call light in reach.Oriented to room. Alyssa Lantigua RN, RN 06/09/2024 12:48 AM Explained patients right to have family, labor relations representative or physician notified of their admission. Patient has Declined for physician to be notified. Patient has Declined for family/labor relations representative to be notified. * Thi Jones RN - 06/08/2024 5:30 PM EST 1740 Pt arrives to pacu with oral airway. Pt following commands, minimally responsive to stimuli. Respirations easy and unlabored. 174 Pt coughing, oral airway removed. Pt placed [...] given by Dr Villareal for 2mg Versed. 1817 2mg Versed given. 1822 Pt appears to be resting comfortably. VSS. 1830 Dr Villareal at bedside to administer 25mg Ketamine. VSS. 1835 Pt continues to complain of severe pain and requesting more pain medication. Dr. Villareal at bedside and stated not to administer more pain medication at this time 1845 Report called to 7K RN, Shanika. RN notified of pt's pain control issues. Discussed further pain med regimen. All questions and concerns addressed at this time. 1850 Pt meets criteria to discharge from pacu. Transport requested. 1900 Transport to bedside. Pt transported to in stable condition. * Siri Noble RN - 06/08/2024 12:41 PM EST Pt admitted to [facility] room 11 and oriented to unit. SCD sleeves applied. Nares swabbed. Pt verbalized permission for first name, last initial and physicians name on white board. SDS board and discharge criteria explained, pt and family verbalized understanding. Pt denies thoughts of harming self or others. Call light in reach. Family at the bedside. [place] [phone] * Conchita Sawyer RN - 06/04/2024 2:00 [...] call us back at your earliest convenience; [phone] [facility] Discharge instructions* Discharge Instructions* Genevieve [...] an appointment, please contactthe office) - ext [phone] If any concerning symptoms, such as calf pain/swelling, new numbness/tingling or pain please the contact the office. If concerning symptoms including chest pain or difficulty breathing, go to the Emergency Department. [facility] History of Present illness Narrative* Yossi Hunter MD - 05/07/2024 9:15 AM EST .CARDIOLOGY OFFICE VISIT CHIEF COMPLAINT Chief Complaint Patient presents with Pre-op Clearance POC to have lumbar surgery on pending with Dr. Jovana Guardado in [facility] HISTORY OF PRESENT ILLNESS Candy Booth is a 53 y.o. year old female patient with a history of a mildly dilated ascending aorta which measured 3.9 cm on the recent CTA in June 2023 that showed mild nonobstructive disease in the coronaries. She had recent ICU admission in [place] for GI bleeding December 2023 and had [...] person, place and time. [facility] Phone: 1(383) 324-389312-13-2024 Instructions* Patient Instructions* Paulo Bucio LPN - [...] time of your visit. [facility] Work Phone: 1(649) 184-635411-14-2024 Evaluation note* Diagnosis Onset Date Resolution Status Admit Date Anxiety acute April 08, 2024 2:57pm Chronic pain syndrome acute Nov 2023 2:57pm Lumbar degenerative disc disease acute April 08, 2 024 2:57pm Peripheral neuropathic pain acute April 08, 2024 2:57pm Preoperative examination acute April 08, 2024 2:57pm Dysuria acute April 29, 2024 3:15pm Hyponatremia acute April 3:15pm [facility] Work Phone: 1(606) 778-654111-13-2024 History of Present illness Narrative* Yossi Hunter MD - 04/07/2024 8:30 AM EST .CARDIOLOGY OFFICE VISIT CHIEF COMPLAINT Chief Complaint Patient presents with Pre-op Clearance POC to have lumbar surgery on 04/21/[address] Jovana Guardado in [facility] HISTORY OF PRESENT ILLNESS Candy Booth is a 53 y.o. year old female patient with a history of a mildly dilated ascending aorta which measured 3.9 cm on the recent CTA in June 2023 that showed mild nonobstructive disease in the coronaries. She had recent ICU admission in [place] for GI bleeding December 2023 and had [...] Smoker Heart valve disease Dilation of aorta (CMS-HCC) Pre-op examination Other Visit Diagnoses Pre-operative clearance [...] person, place and time. documented in this [facility] Work Phone: 1(826) 421-264211-13-2024 Instructions* Patient Instructions* Paulo Bucio LPN - [...] time of your visit. documented in this [facility] Work Phone: 1(999) 873-929711-05-2024 Evaluation note* Diagnosis Onset Date Resolution Status Admit Date Anxiety acute March 30, 2024 3:27pm Chronic pain syndrome acute Mar 3:27pm Anxiety acute April 08, 2024 2:57pm Chronic pain syndrome acute Mar 2:57pm Lumbar degenerative disc disease acute April 08, 2 024 2:57pm Peripheral neuropathic pain acute April 08, 2024 2:57pm Preoperative examination acute April 08, 2024 2:57pm Dysuria acute April 29, 2024 3:15pm Hyponatremia acute April 3:15pm [facility] Work Phone: 1(143) 524-955708-27-2024 Evaluation note* Diagnosis Onset Date Resolution Status Admit Date Anemia due to blood loss acute January 20, 2024 1:48pm Chronic gastrojejunal anastomotic ulcer acute January 19, 2 024 1:48pm Weakness acute January 19, 2 024 1:48pm Cellulitis of left foot acute S ep2023 11:15am Left foot pain acute January 30, 2024 11:15am Anxiety acute February 25, 2 024 2:56pm Chronic pain syndrome acute Feb 2:56pm Depression acute February 25 2:56pm Left foot pain acute February 2:56pm Anxiety acute March 30, 2024 3:27pm Chronic pain syndrome acute Mar 3:27pm [facility] Work Phone: 1(470) 104-483208-12-2024 Hospital course Narrative* Ana Malone RN - 01/05/2024 7:15 PM EDT Discharge order noted. AVS printed and reviewed with patient. Reviewed Medications and scripts thatwill be sent home. Answered patient questions at this time. All belongings were checked and sent with patient. Patient and spouse Trev expressed understanding of all teachings and no further questions at this time. documented in this [facility] Discharge instructions* Discharge Instr - [...] Contact Information Primary Emergency Contact: Emmy Karimi [facility] Mobile Relation: Spouse Secondary Emergency Contact: Amy booth Mobile Relation: Child Past Surgical History: Past Surgical History: Procedure Laterality Date APPENDECTOMY 1993 COLON SURGERY COLONOSCOPY 2018 COSMETIC SURGERY 2009 total body lift DILATATION, ESOPHAGUS ENDOSCOPY, COLON, DIAGNOSTIC 2018 ESOPHAGOGASTRODUODENOSCOPY EYE SURGERY 2002 lasik surgery FOOT SURGERY Had foot surgery with nerve injury leaving patient with chronic pain of foot GASTRIC BYPASS SURGERY HYSTERECTOMY (CERVIX STATUS UNKNOWN) 1993 IR EMBOLIZATION HEMORRHAGE 01/01/2024 IR EMBOLIZATION HEMORRHAGE 01/01/2024 Nasir Martinez MD [facility] SPECIAL PROCEDURES LAPAROSCOPY Small bowel obstruction due to adhesions MT COLONOSCOPY FLX DX W/COLLJ SPEC WHEN PFRMD N/A 10/20/2017 COLONOSCOPY performed by Juancarlos Maldonado MD at [facility] Endoscopy MT EGD TRANSORAL CONTROL BLEEDING ANY METHOD Left 10/19/2017 EGD CONTROL HEMORRHAGE performed by Juancarlos Maldonado MD at [facility] Endoscopy MT LAMNOTMY INCL W/DCMPRSN NRV ROOT 1 INTRSPC LUMBR N/A 02/09/2018 L4-5 DISKECTOMY LEFT performed by Ronal Matos MD at [facility] OR UPPER GASTROINTESTINAL ENDOSCOPY UPPER GASTROINTESTINAL ENDOSCOPY N/A 01/01/2024 ESOPHAGOGASTRODUODENOSCOPY CONTROL HEMORRHAGE performed by Sandy Harvey MD at [facility] OR UPPER GASTROINTESTINAL ENDOSCOPY 01/01/2024 ESOPHAGOGASTRODUODENOSCOPY SCLEROTHERAPY performed by Sandy Harvey MD at [facility] OR Immunization History: Immunization History Administered Date(s) Administered COVID-19, PFIZER PURPLE top, DILUTE for use, (age 12 y+), 30mcg/0.3mL 08/02/2020, 08/22/2020, 05/13/2021 Active Problems: Patient Active Problem List Diagnosis Code Hypovolemic shock (HCC) R57.1 Acute upper GI bleed K92.2 Lactic acidosis E87.20 Hyponatremia E87.1 Orthostatic hypotension I95.1 Hypotension due to blood loss I95.89, R58 AAA (abdominal aortic aneurysm) (HCC) I71.40 Complex regional pain syndrome [id number] Peptic ulcer disease K27.9 Acute blood loss anemia D62 GI bleed K92.2 MVP (mitral valve prolapse) I34.1 Iron deficiency E61.1 Troponin level elevated R79.89 Hypocalcemia E83.51 Hypokalemia E87.6 Hypoalbuminemia due to protein-calorie malnutrition (HCC) E88.09, E46 Gastric ulcer without hemorrhage or [...] Assisted Dressing Assisted Toileting Assisted Feeding Independent Youth Ministry Director Independent Med Delivery whole Wound Care Documentation [...] last 3 completed shifts: In: 2552.7 [P.O.:510; I.V.:2042.7] Out: 4135 [Urine:4135] Safety Concerns: At Risk [...] are sent with patient): None, Cell phone, cap and hat production supervisor, shoes pants shirt RN SIGNATURE: CASE MANAGEMENT/SOCIAL WORK SECTION Inpatient Status Date: Readmission Risk Assessment Score: Readmission Risk Risk of Unplanned Readmission: 15 Discharging to Facility/ Agency Name: Address: Phone: Fax: Dialysis Facility (if applicable) Name: Address: Dialysis Schedule: Phone: Fax: Business System Consultant/Bicycle Repair Technician signature: {Esignature:[id number]} PHYSICIAN SECTION Prognosis: Fair Condition at Discharge: [...] mEq (POTASSIUM EXTENDED-RELEASE DISPERSIBLE TABLET - ORAL) (Cambodian) * Hypotension (Cambodian) * GI Bleed (Cambodian) documented in this [facility] History of Present illness Narrative* Yael Santamaria OT - 01/05/2024 12:15 PM EDT Facility/Department: [facility] CAR 2- STEPDOWN Occupational Therapy Initial [...] Ambulation Assistance: Independent Transfer Assistance: Independent Active Home Care Associate: No Patient's Home Care Associate Info: Spouse completes Occupation: On disability Leisure [...] care and washing face standing sinkside at [facility] with increased time to complete UE Bathing: Stand by assistance LE Bathing: Contact guard assistance UE Dressing: Stand by assistance LE Dressing: Contact guard assistance LE Dressing Skilled Clinical Factors: Pt sat on toilet to thread undergarments at [facility] for safety; Pt required increased time to thread socks over toes seated on toilet. Pt able to complete clothing mgmt over hips at [facility] Toileting: Contact guard assistance Toileting Skilled Clinical Factors: Pt required [facility] for clothing mgmt standing at toilet; Pt sat ontoilet and completed hygiene seated at [facility] for safety; Pt utilized to complete transfer on/off toilet for support; Balance Balance Sitting: With support (CGA seated on toilet during dynamic tasks, SBA unsupported on recliner ~12 minutes cumulatively) Standing: With support (toileting tasks, sinkside ADLs, using RW for support, able to complete withhand release from RW at [facility] grossly 6-7 minutes) Transfers/Mobility [...] from the original note were not included. [facility] Office: [phone] Carter Melendez DO, Anuj Lim DO, Isela Hensley DO, Jayjay Be DO, Garry Braun MD, Cher Nelson MD, Cici Meyer MD, Betty Richards MD, Tang Brewer MD, Paul Sterling MD, Sita Gee MD, Yamilet Pruett DO, Marcella Winters MD, Tanner Leonardo MD, Ibrahima Melendez DO, Michael Arellano MD, Flaco Mc DO, Suzanne Celeste MD, Hazel Morataya MD, Muara Edward MD, Renee Garnica MD, Devin Monreal MD, Frederick Salgado MD, Kvng Reed MD, Sanchez Wade MD, Dillon Barrera MD, Keli Rabago MD, Clark Mcfarlane DO, Joseph Blair DO, Ni Lueng MD, Bryant Carrillo MD, Christina Mackey, SHAUNA, Sherri Nunes, PSYCHIATRIC ARNP, Cory Andrade, PSYCHIATRIC ARNP, Debbie Solis, IVAN,Radha Augustin, PSYCHIATRIC ARNP, Alyssa Judge, PSYCHIATRIC ARNP, Kristen Daly PSYCHIATRIC ARNP, Jennifer Francis, PSYCHIATRIC ARNP, Neli Bolanos, PAAaronC, Shruthi Carlos, PAAaronC, Jayshree Oswald, PSYCHIATRIC ARNP, Oralia Fisher, PSYCHIATRIC ARNP, Rachel Allison, PSYCHIATRIC ARNP, Kerry Rodas,PSYCHIATRIC ARNP, Rashmi Torres, SERVICE CENTER MANAGER, Jaky Green, PSYCHIATRIC ARNP, Damaris Chauhan CNP, Carol Gimenez CNP [facility] IN-PATIENT SERVICE [facility] Progress Note 01/05/2024 7:56 AM Name: Candy Booth Acct: [id number] Room: Day: 6 Admit Date: 12/30/2023 5:58 [...] hysterectomy who presented as a transfer from [facility] with complaints of dark black stool. Patient was treated with PPI, given 5 units PRBC and transferred to [facility] for further GI workup and management. GI [...] -1393.03 ml Labs: Hematology: Recent Labs 01/03/24 01201/03/24 0601/03/24 1245 01/03/24 2142 01/04/24 0457 01/04/24 1744 WBC 8.4 7.3 -- -- [...] interval not displayed. Chemistry: Recent Labs 01/03/24 01201/03/24 0601/04/24 0457 NA -- 140 138 K 3.1* 3.4* 3.1* CL -- 106 104 CO2 -- 24 24 GLUCOSE -- 95 97 BUN -- 3* 3* CREATININE -- 0.3* 0.3* MG -- 1.8 -- ANIONGAP -- 10 10 LABGLOM -- >90 >90 CALCIUM -- 8.2* 8.0* Recent Labs 01/02/24 1615 POCGLU 93 ABG:No results found for: POCPH , PHART , PH , POCPCO2 , CMS7HUH , PCO2 , POCPO2 , PO2ART , PO2 , POCHCO3 , NRR1UOC , HCO3 , NBEA , PBEA , BEART , BE , THGBART , THB , TZV7YUK , ENTZ0KKZ , K5WXYAQW , O2SAT , FIO2 No results found [...] Patient's name: Candy Booth Patient's account/billing number: [id number] Patient's Date of : 1970 Age: 53 y.o. Date of Admission: 12/30/2023 5:58 PM Length of stay during current admission: 5 Primary Care Physician: Maureen Mitchell MD Code Status: Full Code Mode of physician to physician communication: [x] Via telephone [] In person Date and time of sign-out: 01/04/2024 2:35 PM Accepting Medicine team: intermed - Accepting team's attending: Dr. Rabago Patient's current ICU Bed: 3029 Patient's assigned bed on floor: 2025 [] [...] use at the time presented initially to [facility] with syncope and acute rectal bleeding. Patient was treated with IV PPI, given 5 units PRBCs, was transferred to [facility] for further GI workup and management of [...] total 2 unit of blood here at [place]. Patient received a normal saline bolus, approximately [...] treatable arterial lesion at this time. Rt SHIPPING AND RECEIVING CLERK sheath left in place. Current Vitals: BP [...] resident Department of Internal Medicine/ Critical care [facility]) 01/04/2024, 2:35 PM * Tl Salazar, CHEF HEAD - PSYCHIATRIC ARNP - 01/04/2024 10:37 AM EDT [facility]'s Gastroenterology Progress Note Candy Booth is a [...] results for input(s): TIBC , FERRITIN , [id number] , FOLATE , OCCULTBLD in the last 72 hours. Invalid input(s): LABIRON BMP: Recent Labs 01/02/24 0508 01/03/24 0127 01/03/24 0600 01/04/24 0457 NA 141 -- 140 138 K 3.0* 3.1* 3.4* 3.1* CL 110* -- 106 104 CO2 -- 24 BUN 8 -- 3* 3* CREATININE 0.3* -- 0.3* 0.3* GLUCOSE 105* -- 95 97 CALCIUM 7.8* -- 8.2* 8.0* MG 1.9 -- 1.8 -- LFTS: Recent Labs 01/01/24 193 ALKPHOS 124* ALT 13 AST 42* BILITOT [...] results found for: SMOOTHMUSCAB PT/INR Recent Labs 01/01/24 1913 PROTIME 12.3 INR 0.9 Cancer Markers: CEA: [...] contact me with any questions or concerns. [facility] Gastroenterology Tl Salazar, MAC - PSYCHIATRIC ARNP [phone] 01/04/2024 10:37 AM Estimated time of 20 [...] Ricki De La Cruz MD * Tuyet Fulton, DO - 01/04/2024 8:14 AM EDT Images from the original note were not included. [facility] BARIATRICS SURGERY CONSULT NOTE PATIENT: Candy [...] abdominal pain. Patient was a transfer from [facility] 4 days ago after an acute dark [...] unit of blood so far here at [facility]. Pt seen and examined this morning at [...] body lift DILATATION, ESOPHAGUS ENDOSCOPY, COLON, DIAGNOSTIC 2017 ESOPHAGOGASTRODUODENOSCOPY EYE SURGERY 2001 lasik surgery FOOT SURGERY Had foot surgery with nerve injury leaving patient with chronic pain of foot GASTRIC BYPASS SURGERY HYSTERECTOMY (CERVIX STATUS UNKNOWN) 1993 IR EMBOLIZATION HEMORRHAGE 01/01/2024 IR EMBOLIZATION HEMORRHAGE 01/01/2024 Nasir Martinez MD [facility] SPECIAL PROCEDURES LAPAROSCOPY Small bowel obstruction due to adhesions MT COLONOSCOPY FLX DX W/COLLJ SPEC WHEN PFRMD N/A 10/20/2017 COLONOSCOPY performed by Juancarlos Maldonado MD at [facility] Endoscopy MT EGD TRANSORAL CONTROL BLEEDING ANY METHOD Left 10/19/2017 EGD CONTROL HEMORRHAGE performed by Juancarlos Maldonado MD at [facility] Endoscopy MT LAMNOTMY INCL W/DCMPRSN NRV ROOT 1 INTRSPC LUMBR N/A 02/09/2018 L4-5 DISKECTOMY LEFT performed by Ronal Matos MD at [facility] OR UPPER GASTROINTESTINAL ENDOSCOPY UPPER GASTROINTESTINAL ENDOSCOPY N/A 01/01/2024 ESOPHAGOGASTRODUODENOSCOPY CONTROL HEMORRHAGE performed by Sandy Harvey MD at [facility] OR UPPER GASTROINTESTINAL ENDOSCOPY 01/01/2024 ESOPHAGOGASTRODUODENOSCOPY SCLEROTHERAPY performed by Sandy Harvey MD at [facility] OR ALLERGIES: Nsaids, Milk (cow), Acetaminophen-codeine, [...] by mouth at bedtime Cholecalciferol (VITAMIN D3) 80028 units CAPS, Take by mouth Twice a [...] 3.1* CL 110* -- 106 104 CO2 BUN 8 -- 3* 3* CREATININE 0.3* -- 0.3* 0.3* GLUCOSE 105* -- 95 97 Recent Labs 01/01/24 1933 AST 42* ALT 13 ALKPHOS 124* BILITOT 0.8 Recent Labs 01/01/241912 APTT 24.6 INR 0.9 IMAGING: No results [...] - 01/04/2024 Room and Bed Number - 3024/3024- Hospital Day - No chief complaint on file. Cc gi [...] abdominal pain. Patient was a transfer from [facility] 4 days ago after an acute dark [...] unit of blood so far here at [facility]. OBJECTIVE: VITAL SIGNS: Patient Vitals for the [...] Oral Nightly Continuous Infusions: pantoprazole 8 mg/hr (01/04/24603) sodium chloride sodium chloride sodium chloride 50 mL/hr at 01/04/24 06 sodium chloride PRN Meds: ondansetron, 4 mg, [...] hours. DATA: Complete Blood Count: Recent Labs 01/03/2412601/03/2459901/03/24 1245 01/03/24214101/04/24 0457 WBC 8.4 7.3 -- -- 6.8 [...] Last 3 Blood Glucose: Recent Labs 01/01/24 19301/02/2450701/03/2459901/04/24 0457 GLUCOSE 104* 105* 95 97 PT/INR: Lab Results Component Value Date/Time PROTIME 12.3 01/01/2024 07:13 PM INR 0.9 01/01/2024 07:13 PM PTT: Lab Results Component Value Date/Time APTT 24.6 01/01/2024 07:13 PM APTT 26.6 02/06/2018 08:24 AM Basic Metabolic Profile: Recent Labs 01/02/2450701/03/2412601/03/2459901/04/24 0457 NA 141 -- 140 138 K 3.0* 3.1* 3.4* 3.1* CL 110* -- 106 104 CO2 BUN 8 -- 3* 3* CREATININE 0.3* -- 0.3* 0.3* GLUCOSE 105* -- 95 97 MG 1.9 -- 1.8 -- Liver Function: Recent Labs 01/01/24 1933 ALT [...] blood loss 10/18/2017 AAA (abdominal aortic aneurysm) ([facility]) Complex regional pain syndrome Peptic ulcer disease 09/23/2017 PLAN: WEAN PER PROTOCOL: [] No [] Yes [x] N/A ICU PROPHYLAXIS: Stress ulcer: [x] PPI Agent [] [id number] [] Sucralfate [] Other [] None VTE: [...] Livia Manzo MD Critical Care, PGY-1 [facility], [facility] 01/04/24 7:15 AM Attending Physician Statement I [...] this chart was generated using voice recognition Cloudyn dictation software. Although every effort was made to ensure the accuracy of this automated preboarder, some errors in preboarder may have occurred. * Tl Salazar, CHEF HEAD - PSYCHIATRIC ARNP - 01/03/2024 11:49 AM EDT [facility] Gastroenterology Progress Note Candy Booth is a [...] results for input(s): TIBC , FERRITIN , [id number] , FOLATE , OCCULTBLD in the last 72 hours. Invalid input(s): LABIRON BMP: Recent Labs 01/01/24 04101/01/24193201/02/24 0508 01/03/24 0127 01/03/24 0600 NA 139 [...] results found for: SMOOTHMUSCAB PT/INR Recent Labs 01/01/24 1913 PROTIME 12.3 INR 0.9 Cancer Markers: CEA: [...] contact me with any questions or concerns. [facility] Gastroenterology Tl Salazar APRN - PSYCHIATRIC ARNP [phone] 01/03/2024 11:49 AM Estimated time of 20 [...] abdominal pain. Patient was a transfer from [facility] 4 days ago after an acute dark [...] unit of blood so far here at [facility]. OBJECTIVE: VITAL SIGNS: Patient Vitals for the [...] Max:99.1 F (37.3 C) Ins/Outs: In: 2208.8 [I.V.:2208.8] Out: 6010 [Urine:6010] PHYSICAL EXAM: Constitutional: Awake [...] Oral Nightly Continuous Infusions: pantoprazole 8 mg/hr (01/03/24 07) sodium chloride norepinephrine sodium chloride sodium chloride [...] hours. DATA: Complete Blood Count: Recent Labs 01/02/24 0508 01/02/24 0953 01/02/24 [...] displayed. Last 3 Blood Glucose: Recent Labs 01/01/2441001/01/24193201/02/24 0508 01/03/24 0600 GLUCOSE 86 104* 105* 95 PT/INR: Lab Results Component Value Date/Time PROTIME 12.3 01/01/2024 07:13 PM INR 0.9 01/01/2024 07:13 PM PTT: Lab Results Component Value Date/Time APTT 24.6 01/01/2024 07:13 PM APTT 26.6 02/06/2018 08:24 AM Basic Metabolic Profile: Recent Labs 01/01/2441001/01/24193201/02/24 0508 01/03/24 0127 01/03/24 0600 NA 139 137 141 -- 140 K 3.3* 3.9 3.0* 3.1* 3.4* CL 107 106 110* -- 106 CO2 23 19* 22 -- 24 BUN <1* 8 8 -- 3* CREATININE 0.3* 0.3* 0.3* -- 0.3* GLUCOSE 86 104* 105* -- 95 MG 2.0 -- 1.9 -- 1.8 Liver Function: Recent Labs 01/01/241932 ALT 13 [...] ulcer without hemorrhage or perforation Hypovolemic shock ([facility]) 10/18/2017 Acute upper GI bleed 10/18/2017 Lactic acidosis 10/18/2017 Hyponatremia 10/18/2017 Orthostatic hypotension 10/18/2017 Hypotension due to blood loss 10/18/2017 AAA (abdominal aortic aneurysm) ([facility]) Complex regional pain syndrome Peptic ulcer disease 09/23/2017 PLAN: WEAN PER PROTOCOL: [] No [] Yes [x] N/A ICU PROPHYLAXIS: Stress ulcer: [x] PPI Agent [] [id number] [x] Sucralfate [] Other [] None VTE: [...] C) Antimicrobials: not indicated Hematology: Recent Labs 01/02/24 1953 01/03/24 0127 01/03/24 0600 HGB 9.1* 9.0* 8.6* trending down Endocrine: glucose controlled - most recent BGL is Recent Labs 01/01/24 1933 01/02/24 0508 01/03/24 0600 GLUCOSE 104* 105* 95 DVT Prophylaxis SCD sleeves -thigh high and No chemoprophylaxis anticoagulation at this time. Discharge Needs: PT, OT, ST, SW, and Case Management CODE STATUS: Full Code DISPOSITION: [x] To remain ICU: [] OK for out of ICU from Critical Care standpoint Livia Manzo MD Critical Care, PGY-1 [facility] 01/03/24 11:41 AM Attending Physician Statement [...] this chart was generated using voice recognition Cloudyn dictation software. Although every effort was made to ensure the accuracy of this automated preboarder, some errors in preboarder may have occurred. * Margaret Sullivan, DO - 01/03/2024 7:45 AM EDT Images from the original note were not included. [facility] BARIATRICS SURGERY CONSULT NOTE PATIENT: Candy [...] abdominal pain. Patient was a transfer from [facility] 4 days ago after an acute dark [...] unit of blood so far here at [facility]. She feels improved and has not pain. [...] IR EMBOLIZATION HEMORRHAGE 01/01/2024 Nasir Martinez MD [facility] SPECIAL PROCEDURES LAPAROSCOPY Small bowel obstruction due to adhesions MT COLONOSCOPY FLX DX W/COLLJ SPEC WHEN PFRMD N/A 10/20/2017 COLONOSCOPY performed by Juancarlos Maldonado MD at [facility] Endoscopy MT EGD TRANSORAL CONTROL BLEEDING ANY METHOD Left 10/19/2017 EGD CONTROL HEMORRHAGE performed by Juancarlos Maldonado MD at [facility] Endoscopy MT LAMNOTMY INCL W/DCMPRSN NRV ROOT 1 INTRSPC LUMBR N/A 02/09/2018 L4-5 DISKECTOMY LEFT performed by Ronal Matos MD at [facility] OR UPPER GASTROINTESTINAL ENDOSCOPY UPPER GASTROINTESTINAL ENDOSCOPY N/A 01/01/2024 ESOPHAGOGASTRODUODENOSCOPY CONTROL HEMORRHAGE performed by Sandy Harvey MD at [facility] OR UPPER GASTROINTESTINAL ENDOSCOPY 01/01/2024 ESOPHAGOGASTRODUODENOSCOPY SCLEROTHERAPY performed by Sandy Harvey MD at [facility] OR ALLERGIES: Nsaids, Milk (cow), Acetaminophen-codeine, [...] by mouth at bedtime Cholecalciferol (VITAMIN D3) 82999 units CAPS, Take by mouth Twice a [...] LABS: Recent Labs 01/02/24 0508 01/02/24 0953 01/02/24195201/03/2412601/03/24 0600 WBC 6.8 -- -- 8.4 7.3 HGB 8.4* < > 9.1* 9.0* 8.6* PLT 207 -- -- 219 220 < > = values in this interval not displayed. Recent Labs 01/01/24 19301/02/24 0508 01/03/24 0127 01/03/24 0600 NA 137 141 -- 140 K 3.9 3.0* 3.1* 3.4* CL 106 110* -- 106 CO2 19* 22 -- 24 BUN 8 8 -- 3* CREATININE 0.3* 0.3* -- 0.3* GLUCOSE 104* 105* -- 95 Recent Labs 01/01/24 0411 01/01/241932 AST 40* 42* ALT 10 13 ALKPHOS 161* 124* BILITOT 0.3 0.8 BILIDIR <0.2 -- Recent Labs 01/01/241912 APTT 24.6 INR 0.9 IMAGING: No results [...] EDT Physician Progress Note PATIENT: CANDY BOOTH [facility] #: [id number] : 1970 ADMIT DATE: 12/30/2023 5:58 PM DISCH DATE: RESPONDING PROVIDER #: Christopher Morataya MD QUERY TEXT: Patient admitted with GI bleed. 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 basketball coach assessment with malnutrition diagnosis in Nutrition Assessment [...] longer, albumin 2.8, total protein 5.0 Treatment: college basketball coach consult, Continue Current Diet advance as tolerated, monitor PO intake, diet tolerance, weight, labs ASPEN Criteria: [email or web address]://[email or web address].onlinelibrary.garland.com/doi/full/10.1177/394496688704787 5 Thank you, Callie BAUER,RN, CDI email - [email or web address] alxh- [phone] office hours M--6A-2P Options provided: -- Protein calorie malnutrition moderate [...] back tomorrow, 01/02 Treatment performed by Student WOOL SHEARING SUPERVISOR under the supervision of co-signing WOOL SHEARING SUPERVISOR who agrees with all treatment and documentation. Zeyad Ashley PTA * Mayuri Kilgore RN - 01/02/2024 3:59 PM EDT 1400: Echocardiograph Tech has been caring for patient all shift since 0700, @ 1400 patient suddenly became untrusting of bid writer. Patient is unable to answer orientation questions at this time. Provided notified. 1500: Orders placed, see MAR. 1533: Medication administered via Charge Nurse. Patient stating that bid writer is not allowed to help her. Patient then called charge weigher names. 1550: Echocardiograph Tech assisting with IV beeping, patient stated that bid writer needed to give back the patient daughter, and stop playing on the boats. Echocardiograph Tech attempted to re-orient unsuccessfully. Patient demanded that bid writer leave her house. She is refusing to allow bid writer to provide medications/care at thistime. opthalmic tech aware. 1700: patient continues to refuse all care. Echocardiograph Tech attempted to reorient, patient demands bid writer leave the room and not do anything. 1745: at bedside. Echocardiograph Tech attempted to update, patient spouse began arguing with bid writer thatpatient is withdrawing from pain medications. Echocardiograph Tech attempted to explain that patient has had opioid medications today however he spoke over bid writer and would not accept explanation at this time. Conversation terminated due to escalating. 1800: Echocardiograph Tech requested another RN to assist due to [...] loss Fluid Accumulation: No significant fluid accumulation Medical Imaging Tech Strength: Not Performed Nutrition Assessment: Pt s/p [...] Measures: Height: 170.2 cm (5' 7.01 ) [place] Body Weight (IBW): 135 lbs (61 kg) [...] Used for Energy Requirements: Admission Energy (kcal/day): 7790-6566 kcals/day Weight Used for Protein Requirements: Admission [...] to determine Rody Soto RD, CALEB Contact: [phone] * Yael Santamaria OT - 01/02/2024 1:28 PM EDT Images from the original note were not included. [facility] Occupational Therapy Not Seen Note DATE: 01/02/2024 [...] Patient's name: Candy Booth Patient's account/billing number: [id number] Patient's Date of : 1970 Age: 53 y.o. Date of Admission: 12/30/2023 5:58 PM Length of stay during current admission: 3 Primary Care Physician: Maureen Mitchell MD ICU Attending Physician: Dr. Mendez Status: Full Code Reason for ICU admission: [...] Date 01/02/24 0000 - 01/02/24 2359 Shift 3611-7026 3665-9625 5350-0147 24 Hour Total INTAKE I.V.(mL/kg) 3821.8(44.4) 3821.8(44.4) [...] results found for: PHART , PH , PKP2GDI , PCO2 , PO2ART , PO2 , WDT3HDC , HCO3 , BEART , BE , THGBART , THB , RYA4ZAU , W6JBPUHT , O2SAT , FIO2 Lactic Acid: No [...] 08:24 AM Basal Metabolic Profile: Recent Labs 08/08/41001/01/24193201/02/24 0508 NA 139 137 141 K 3.3* [...] the last 72 hours. LFTS Recent Labs 12/31/23 0046 01/01/2441001/01/241932 ALKPHOS 174* 161* 124* ALT 13 10 13 AST 47* 40* 42* BILITOT 0.4 0.3 0.8 BILIDIR 0.2 <0.2 -- AMYLASE/LIPASE/AMMONIA Recent Labs 01/01/241932 LIPASE 18 Last 3 Blood Glucose: Recent Labs 12/31/23 0046 01/01/24 0411 01/01/24193201/02/24 0508 GLUCOSE 89 86 104* 105* HgBA1c: No results found for: LABA1C TSH: Lab Results Component Value Date/Time TSH 6.81 12/31/2023 12:46 AM ANEMIA STUDIES Recent Labs 12/31/23 0046 12/31/23 0727 TIBC -- 213* [id number] 271 -- FOLATE 5.4 -- Cultures during [...] MD Department of Internal Medicine/ Critical care [place], [place] 01/02/2024 8:26 AM Attending Physician Statement [...] this chart was generated using voice recognition Cloudyn dictation software. Although every effort was made to ensure the accuracy of this automated preboarder, some errors in preboarder may have occurred. * Rachel Brewer DO - 01/02/2024 6:40 AM EDT Images from the original note were not included. [facility] BARIATRICS SURGERY PROGRESS NOTE Patient Name: [...] Stool:2] Date 01/02/24 - 01/02/24 2359 Shift 7997-5259 8394-3160 0542-5405 24 Hour Total INTAKE I.V.(mL/kg) 3821.8(44.4) 3821.8(44.4) [...] 12/31/23 0046 12/31/23 0727 12/31/23 1222 01/01/24 1910 01/01/24 1913 01/02/24 0154 01/02/24 0508 WBC 5.2 -- < [...] this interval not displayed. Chem: Recent Labs 12/31/234501/01/2441001/01/24190901/01/24193201/02/24 0508 NA 135* 139 -- 137 141 [...] 1.0 -- -- -- -- Recent Labs 12/31/234501/01/2441001/01/24191201/01/24 1933 TSH 6.81* -- -- -- AST 47* 40* -- 42* ALT 13 10 -- 13 LDH 168 -- -- -- ALKPHOS 174* 161* -- 124* BILITOT 0.4 0.3 -- 0.8 BILIDIR 0.2 <0.2 -- -- LIPASE -- -- -- 18 POCGLU -- -- 111* -- Glucose: Recent Labs 01/01/241912 POCGLU 111* ABG:No results found for: POCPH , PHART , PH , POCPCO2 , ALO4DNU , PCO2 , POCPO2 , PO2ART , PO2 , POCHCO3 , DBQ7YMF , HCO3 , NBEA , PBEA , BEART , BE , THGBART , THB , ATG4PTM , CNEO8HHR , R7QGHFHV , O2SAT , FIO2 Radiology: CTA ABDOMEN [...] questions answered * Mel Castillo APRN - PSYCHIATRIC ARNP - 01/02/2024 6:05 AM EDT [facility] Gastroenterology Progress Note Candy Booth is a [...] results found for: PLTFLUORE PT/INR Recent Labs 12/31/234512/31/2372601/01/241912 PROTIME 11.8 11.9 12.3 INR 0.9 0.9 0.9 ANEMIA STUDIES Recent Labs 12/31/234512/31/23726 IRONPERSAT -- 11* TIBC -- 213* IRON -- 24* [id number] 271 -- FOLATE 5.4 -- BMP Recent Labs 12/31/234501/01/241 01/02/24 0508 NA 135* 139 141 K 3.7 3.3* 3.0* CL 105 107 110* CO2 20 23 22 BUN 2* <1* 8 CREATININE 0.4* 0.3* 0.3* GLUCOSE 89 86 105* CALCIUM 8.5* 8.5* 7.8* MG 1.9 2.0 1.9 LFTS Recent Labs 12/31/234501/01/24410 ALKPHOS 174* 161* ALT 13 10 AST 47* 40* BILITOT 0.4 0.3 BILIDIR 0.2 <0.2 ALBUMIN 3.0* 2.8* PT/INR Recent Labs 12/31/234512/31/2372601/01/241912 PROTIME 11.8 11.9 12.3 INR 0.9 0.9 [...] chronic pain who presented as transfer from [facility] where patient initially presented there 12/28/2019 for with syncopal episode and acute rectal bleeding. Patient had downward trend of hemoglobin and transferred to [facility] for GI bleed evaluation 1. Melena- [...] of your patient. Mel Castillo APRN - PSYCHIATRIC ARNP on 01/02/2024 at 6:06 AM [facility] Please note that this note was generated using a voice recognition dictation software. Although every effort was made to ensure the accuracy of this automated preboarder, some errors in preboarder may have occurred. Associated attestation - Sandy Harvey MD - 01/02/2024 6:30 PM EDT [...] and review of system. Electronically signed by Sandy Harvey MD * Jeff Gaspar, PT - 01/01/2024 3:02 PM EDT Physical Therapy Facility/Department: [address] ONC/MED SURG Physical Therapy Initial Assessment [...] Assistance: Needs assistance Transfer Assistance: Independent Active Home Care Associate: No Mode of Transportation: Family Occupation: On [...] Good Sitting - Dynamic: Fair OutComes Score AM-PAC - Mobility -[facility] Basic Mobility - Inpatient How much [...] climbing 3-5 steps with a railing?: Total [facility] Inpatient Mobility Raw Score : 16 [facility] Inpatient T-Scale Score : 40.78 Mobility Inpatient CMS 0-100% Score: 54.16 Mobility Inpatient CMS G-Code Modifier : CK Tinneti Score Goals [...] from the original note were not included. [facility] Office: [phone] Carter Melendez DO, Anuj Lim DO, Isela [...] Sherri Nunes CNP, Cory Andrade CNP, Debbie Solis, IVAN,Radha Augustin CNP, Alyssa Judge CNP, Kristen Daly CNP, Jennifer Francis CNP, Neli Bolanos PAAaronC, FAINA MroeC, Jayshree Oswald CNP, Oralia Fisher PSYCHIATRIC ARNP, Rachel Allison PSYCHIATRIC ARNP, Kerry Rodas,PSYCHIATRIC ARNP, Rashmi Torres, SERVICE CENTER MANAGER, Jaky Green, PSYCHIATRIC ARNP, Damaris Chauhan CNP, Carol Gimenez, PSYCHIATRIC ARNP [facility] IN-PATIENT SERVICE [facility] Progress Note 01/01/2024 9:21 AM Name: Candy Booth Acct: [id number] Room: [facility]/NONE IP Day: 2 Admit Date: 12/30/2023 5:58 [...] w/ chronic pain who initially presented to [facility] on 12/28/2023 status post syncope with acute rectal bleeding. Patient treated conservatively with IV PPI with suspected GI bleed status post 5 units PRBCs and recommended for transfer for further GI workup to [facility] for the management of GI bleed. Patient does describe recent ENT infection with left cervical painful lymphadenopathy status post 10-day course of clindamycin in mid to late November. Patient states she had worsening indigestion with nausea which she attributed to the clindamycin. She describes acute diarrhea with rectal bleeding complicated by near syncope/syncope and collapse prior to presenting to [facility] ED. Patient admits to prior history of [...] 2/3 AM. Patient does follow with cardiology [facility]. Was recommended for antihypertensive regimen but states that the radiology receptionist did not get the prescription sent [...] 5-40 mL IntraVENous 2 times per day [JUL Hold] pantoprazole 40 mg Oral QAM AC [JUL Hold] carvedilol 6.25 mg Oral BID WC [JUL Hold] sodium chloride flush 5-40 mL IntraVENous 2 times per day [JUL Hold] pregabalin 200 mg Oral TID RT [JUL Hold] sertraline 200 mg Oral Nightly Continuous Infusions: sodium chloride [Jul] pantoprazole 8 mg/hr (01/01/24 0746) [JUL Hold] sodium chloride 75 mL/hr at 12/31/23 1831 [JUL Hold] sodium chloride PRN Meds: [JUL Hold] potassium chloride OR [JUL Hold] potassium alternative oral replacement OR [JUL Hold] potassium chloride, naloxone 0.4 mg in 10 mL sodium chloride syringe, sodium chloride flush, sodium chloride, fentanNYL, fentanNYL, ondansetron, diphenhydrAMINE, [JUL Hold] ipratropium0.5 mg-albuterol 2.5 mg, [JUL Hold] guaiFENesin, [JUL Hold] benzonatate, [JUL Hold] sodium chlorideflush, [JUL Hold] sodium chloride, [JUL Hold] ondansetron OR [JUL Hold] ondansetron, [JUL Hold]acetaminophen OR [JUL Hold] acetaminophen, [JUL Hold] ALPRAZolam, [JUL Hold] oxyCODONE [...] Intake/Output Summary (Last 24 hours) at 01/01/2024 09 Last data filed at 01/01/2024 0810 Gross per 24 hour Intake 500 ml Output 4 ml Net 496 ml Labs: Hematology: Recent Labs 12/31/23 0046 12/31/23 0727 12/31/23 1222 01/01/24 0144 01/01/24 04101/01/24 06 WBC 5.2 -- -- -- 4.9 -- [...] this interval not displayed. Chemistry: Recent Labs 12/31/234501/01/24410 NA 135* 139 K 3.7 3.3* CL [...] , PHART , PH , POCPCO2 , GSX2IFJ , PCO2 , POCPO2 , PO2ART , PO2 , POCHCO3 , BPM6REM , HCO3 , NBEA , PBEA , BEART , BE , THGBART , THB , YPE4LSD , MDCD9DVO , O7YJVWWN , O2SAT , FIO2 No results found [...] Celeste MD 01/01/2024 9:21 AM * Kadi Slaughter, RD - 12/31/2023 2:38 PM EDT Comprehensive [...] loss Fluid Accumulation: No significant fluid accumulation Medical Imaging Tech Strength: Not Performed Nutrition Assessment: Pt admit from [facility] for management of GI bleed. Seen for [...] Measures: Height: 170.2 cm (5' 7 ) [place] Body Weight (IBW): 135 lbs (61 kg) [...] Used for Energy Requirements: Current Energy (kcal/day): 7270-3307 kcal/d Weight Used for Protein Requirements: Current [...] time Kadi Slaughter MS, RDN, LDN Contact: [phone] * Suzanne Celeste MD - 12/31/2023 1:24 PM EDT Images from the original note were not included. [facility] Office: [phone] Carter Melendez DO, Anuj Lim DO, Isela Hensley, DO, Jayjay Be, DO, Garry Braun MD, Cher Nelson MD, Cici Meyer MD, Betty Richards MD, Tang Brewer MD, Paul Sterling MD, Sita Gee MD, Yamilet Pruett, DO, Marcella Winters MD, Tanner Leonardo MD, Ibrahima Melendez DO, Michael Arellano MD, Flaco Mc, DO, Suzanne Celeste MD, Hazel Morataya MD, Maura Edward MD, Renee Garnica MD, Devin Monreal MD, Frederick Salgado MD, Kvng Reed MD, Sanchez Wade MD, Dillon Barrera MD, Keli Rabago MD, Clark Mcfarlane, DO, Joseph Blair, DO, Ni Leung MD, Bryant Carrillo MD, Christina Mackey, PSYCHIATRIC ARNP, Sherri Nunes, PSYCHIATRIC ARNP, Cory Andrade, PSYCHIATRIC ARNP, Debbie Solis, DNP,Radha Augustin, PSYCHIATRIC ARNP, Alyssa Judge, PSYCHIATRIC ARNP, Kristen Daly, PSYCHIATRIC ARNP, Jennifer Francis, PSYCHIATRIC ARNP, Neli Bolanos PAAaronC, FAINA MoreC, Jayshree Oswald, PSYCHIATRIC ARNP, Johanny Henderson, PSYCHIATRIC ARNP, Oralia Fisher, PSYCHIATRIC ARNP, Rachel Allison,PSYCHIATRIC ARNP, Kerry Rodas, PSYCHIATRIC ARNP, Rashmi Torres, SERVICE CENTER MANAGER, Jaky Green, PSYCHIATRIC ARNP, Damaris Chauhan, PSYCHIATRIC ARNP, Carol Gimenez, PSYCHIATRIC ARNP [facility] IN-PATIENT SERVICE [facility] Second Visit Note For more detailed information please refer to the progress note of the day 12/31/2023 1:24 PM Name: Candy Booth Acct: [id number] Room: 0441/0441-01 Day: 1 Admit Date: 12/30/2023 5:58 PM PCP: Maureen Mitchell MD Code Status: Full Code Pt vitals were reviewed New labs were reviewed Patient was seen. She had 1 BM this am which was bloody. Hemoglobin stable. She will have EGD in am. Updated plan : GI bleed - patient to be seen by GI. Monitor h/h. S/p 5 u PRBC at outlying hospital. EGD today. Currently tolerating clear liquid diet. On IV protonix drip. Transfuse as needed. Acute diarrhea - stool studies pending. C diff negative. Monitor I/O's Acute blood loss anemia - s/p 5 U PRBC. She has macrocytosis. B12 borderline. H/o gastric bypass. Will start B12. Moderate mitral and aortic regurgitation - Echo reviewed. LV function wnl. She has been evaluated by [facility] cardiology and had CTA for [...] Monitor Chronic lumbar pain - on Opiates senior living and Lyrica. Home doses continued. DVT prophylaxis- no chemical AC due to GI bleed. SCD's in bed Patient at low risk for EGD. Suzanne Celeste MD 12/31/2023 1:24 PM documented [facility]08-[facility]-2024 NotePROCEDURE: IR EMBOLIZATION VASCULAR ANY HEMORRHAGE [...] for a 0.035 inch wire and 5 Jordanian introducer sheath. A 5 Jordanian Bren catheter was then used to selectively catheterize the celiac artery and digital angiography was performed in AP and oblique projections. Subsequently, several different catheters were used to attempt selective catheterization of the left gastric artery, ultimately successful with a 5 Jordanian Cobra catheter. Digital angiography of the left [...] by: Nasir Martinez MD 01/02/24 [facility] NotePROCEDURE: IR EMBOLIZATION VASCULAR ANY HEMORRHAGE [...] for a 0.035 inch wire and 5 Jordanian introducer sheath. A 5 Jordanian Bren catheter was then used to selectively catheterize the celiac artery and digital angiography was performed in AP and oblique projections. Subsequently, several different catheters were used to attempt selective catheterization of the left gastric artery, ultimately successful with a 5 Jordanian Cobra catheter. Digital angiography of the left [...] branch abnormality/other treatable lesion at this time. [facility] RIS [id number] Miscellaneous Notes* Result Encounter Note - Yossi Hunter MD - 07/15/2023 11:15 AM EST CTA shows very minimal atherosclerosis with no significant stenosis. Recommend routine follow-up and continue to current treatment. [facility] 1([phone]) 200-326402-20-2024 Nurse Note* Rosaline Vásquez RN - 07/15/2023 [...] DC home to self care with family [facility] Work Phone: [phone]) 398-481402-20-2024 Nurse Note* Rosaline Vásquez RN - 07/15/2023 [...] breathmakes her chest hurt documented in this [facility] Work Phone: 1(993) 357-559202-20-2024 Nurse Note* Rosaline Vásquez RN - 07/15/2023 [...] breathmakes her chest hurt [facility]: 1(813) 334-409602-20-2024 Progress note* Result Encounter Note - Yossi Hunter MD - 07/15/2023 11:15 AM EST CTA shows very minimal atherosclerosis with no significant stenosis. Recommend routine follow-up and continue to current treatment. [facility] Work Phone: 1(813) 325-142202-20-2024 Nurse Note* Rosaline Vásquez RN - 07/15/2023 11:08 AM EST Pt. Unable to tolerate deep breathing excercises for HR control. She states that holding her breathmakes her chest hurt [facility] Work Phone: [phone]) 940-764602-12-2024 Evaluation note* Encounter Date Diagnosis Assessment Notes Treatment Notes Treatment Clinical Notes Jun, Lumbar degenerative disc disease (ICD-10 - M51.36) Jun, Medication management (ICD-10 - Z79.899) [email or web address] Other 02-06-2024 History of Present illness Narrative* [...] person, place and time. documented in [facility]: 1(460) 259-694502-06-2024 Instructions* Patient Instructions* Paulo Bucio LPN - 07/01/2023 2:[address] Angio Stop carvedilol Start Metoprolol XL 25 mg BID 3 month visit documented [facility]: 1([phone]) 432-454801-25-2024 Evaluation note* Encounter Date Diagnosis Assessment Notes Treatment Notes Treatment Clinical Notes May, Lumbar degenerative disc disease (ICD-10 - M51.36) OARRS reviewed Medications refilled Refer to Dr. Gonzalez per patient's request. May, Anxiety disorder, unspecified (ICD-10 - F41.9) Medications refilled. [email or web address] Other 01-08-2024 Evaluation note* Encounter Date Diagnosis Assessment Notes Treatment Notes Treatment Clinical Notes May, Lumbar degenerative disc disease (ICD-10 - M51.36) May, Anxiety disorder, unspecified (ICD-10 - F41.9) [email or web address] Other 01-02-2024 History of Present illness Narrative* [...] person, place and time. documented [facility]: 1(363) 915-203901-02-2024 Instructions* Patient Instructions* Paulo Bucio LPN - 05/27/2023 1:45 PM EST Follow up after testing CT Thoracic Echo documented [facility]: [phone]) 476-965312-07-2023 Evaluation note* Encounter Date Diagnosis Assessment Notes Treatment Notes Treatment Clinical Notes Apr, Lumbar degenerative disc disease (ICD-10 - M51.36) [email or web address] Other 11-09-2023 Evaluation note* Encounter Date Diagnosis [...] to go to ER by calling 911. [email or web address] Other 11-07-2023 Evaluation note* Encounter Date Diagnosis Assessment Notes Treatment Notes Treatment Clinical Notes Mar, Lumbar degenerative disc disease (ICD-10 - M51.36) [email or web address] Other 10-19-2023 Evaluation note* Encounter Date Diagnosis Assessment Notes Treatment Notes Treatment Clinical Notes Feb, Anxiety disorder, unspecified (ICD-10 - F41.9) Chronic problem list refill Xanax. Patient states Xanax does completely resolve her symptoms reviewed OARRS report. Feb, Lumbar degenerative disc disease (ICD-10 - M51.36) We will request records from pain management at [facility] as far as the MRI and upcoming treatment plan. Reviewed OARRS report. Discussed decreasing amount or frequency of oxycodone. Patient defers to have an upcoming MRI and plan of treatment through pain management. We will monitor further symptoms of overdosing carefully. Feb, Vitamin D deficiency (ICD-10 - E55.9) Lab order sent to [facility] per patient's request Feb, Iron deficiency anemia, unspecified iron deficiency anemia type (ICD-10 - D50.9) As above lab order sent to [facility]. Previously under the care of of Dr. Bañuelos at [facility] cancer Feb, Medication management (ICD-10 - Z79.899) Monitor kidney and liver function based on her chronic medications. [email or web address] Other 09-21-2023 Evaluation note* Encounter Date Diagnosis Assessment Notes Treatment Notes Treatment Clinical Notes Jan, Anxiety disorder, unspecified (ICD-10 - F41.9) [email or web address] Other 09-07-2023 Evaluation note* Encounter Date Diagnosis Assessment Notes Treatment Notes Treatment Clinical Notes Jan, Lumbar degenerative disc disease (ICD-10 - M51.36) [email or web address] Other 08-24-2023 Evaluation note* Encounter Date Diagnosis Assessment Notes Treatment Notes Treatment Clinical Notes Dec, Anxiety disorder, unspecified (ICD-10 - F41.9) [email or web address] Other 08-08-2023 Evaluation note* Encounter Date Diagnosis Assessment Notes Treatment Notes Treatment Clinical Notes Dec, Lumbar degenerative disc disease (ICD-10 - M51.36) [email or web address] Other 07-14-2023 Evaluation note* Encounter Date Diagnosis Assessment Notes Treatment Notes Treatment Clinical Notes Nov, Lumbar degenerative disc disease (ICD-10 - M51.36) [email or web address] Other 06-14-2023 Evaluation note* Encounter Date Diagnosis Assessment Notes Treatment Notes Treatment Clinical Notes Oct, Lumbar degenerative disc disease (ICD-10 - M51.36) [email or web address] Other 04-27-2023 Evaluation note* Encounter Date Diagnosis Assessment Notes Treatment Notes Treatment Clinical Notes Aug, Left foot pain (ICD-10 - M79.672) Aug, Migraine without status migrainosus, not intractable, unspecified migraine type (ICD-10 - G43.909) Aug, Anxiety disorder, unspecified (ICD-10 - F41.9) Aug, Depression, unspecified (ICD-10 - F32.A) [email or web address] Other 04-18-2023 Evaluation note* Encounter Date Diagnosis Assessment Notes Treatment Notes Treatment Clinical Notes Aug, Lumbar degenerative disc disease (ICD-10 - M51.36) [email or web address] Other 03-07-2023 Evaluation note* Encounter Date Diagnosis [...] Pain in left leg (ICD-10 - M79.605) [email or web address] Other 03-07-2023 Evaluation note* Encounter Date Diagnosis [...] bandaid and further cushioning on L elbow. [email or web address] Other 06-16-2021 NoteHNO ID: [id number] Author: Ariana Matute APRN.PSYCHIATRIC ARNP Service: ? Author Type: Nurse Practitioner Type: Progress Notes Filed: 11/08/2020 3:37 PM Note Text: NAME: Candy Booth CLINIC NO.: [id number] DATE OF SERVICE: November 08, 2020 Referring [...] pill endoscopy. 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 [...] as needed. sertraline ( (more content not included)...[facility]05-19-2021 NoteHNO ID: [id number] Author: Saritha Amaya MD Service: ? Author Type: Physician Type: Progress Notes Filed: 10/21/2020 6:59 PM Note Text: NAME: Candy Booth [facility] NO.: [id number] DATE OF SERVICE: October 11, 2020 Referring [...] pill endoscopy. 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 [...] mg tablet Take 1 (more content not included)...[facility] No data available for this section General Surgery Karyn Evaluation noteNo InformationNocooper [facility] memorial hospital [employer] Other Evaluation noteCypress [employer] Other Evaluation note* Diagnosis Shortness of breath Essential hypertension Unspecified essential hypertension BMI 32.0-32.9,adult Smoker Tobacco use disorder Heart valve disease Endocarditis, valve unspecified, unspecified cause Dizziness Dizziness and giddiness Dilation of aorta (CMS/HCC) documented in this encounter [facility] Work Phone: Evaluation note* Diagnosis Shortness of breath Heart valve disease Endocarditis, valve unspecified, unspecified cause Dizziness Dizziness and giddiness Dilation of aorta (CMS/HCC) documented in this encounter [facility] Work Phone: Evaluation note* Diagnosis Angina pectoris, unstable (CMS/HCC)- Primary Intermediate coronary syndrome Dilation of aorta (CMS/HCC) Essential hypertension Unspecified essential hypertension Heart valve disease Endocarditis, valve unspecified, unspecified cause Shortness of breath Smoker Tobacco use disorder BMI 32.0-32.9,adult documented in this encounter [facility] Work Phone: Evaluation note* Diagnosis Essential hypertension Unspecified essential hypertension Shortness of breath Angina pectoris, unstable (CMS/HCC) Intermediate coronary syndrome documented in this encounter [facility] Work Phone: Evaluation note* Diagnosis Essential hypertension Unspecified essential hypertension Shortness of breath Angina pectoris, unstable (CMS/HCC) Intermediate coronary syndrome documented in this encounter [facility] Work Phone: Evaluation note* Diagnosis Onset Date Resolution Status Edema acute HTN (hypertension) acute [facility] Work Phone: Evaluation note* Diagnosis Onset Date Resolution Status Anxiety acute Chronic lumbar pain acute Edema acute HTN (hypertension) acute Lumbar degenerative disc disease acute Peripheral neuropathic pain acute Skin ulcer of elbow acute Anxiety acute Chronic pain syndrome acute Encounter for palliative care acute Peripheral neuropathic pain acute [facility] Work Phone: Evaluation note* Diagnosis Onset Date Resolution Status Anxiety acute Chronic lumbar pain acute Edema acute HTN (hypertension) acute Lumbar degenerative disc disease acute Peripheral neuropathic pain acute Skin ulcer of elbow acute Anxiety acute Chronic pain syndrome acute Encounter for palliative care acute Anxiety acute Chronic pain syndrome acute [facility] Work Phone: Evaluation note* Diagnosis Onset Date Resolution Status Anxiety acute Chronic lumbar pain acute Edema acute HTN (hypertension) acute Lumbar degenerative disc disease acute Peripheral neuropathic pain acute Skin ulcer of elbow acute Anxiety acute Chronic pain syndrome acute Encounter for palliative care acute Anxiety acute Chronic pain syndrome acute Chronic pain syndrome acute Peripheral neuropathic pain acute [facility] Work Phone: Evaluation note* Diagnosis Onset Date Resolution Status Anxiety acute Chronic pain syndrome acute Anxiety acute Chronic pain syndrome acute Depression acute Impaired mobility and ADLs a cute Peripheral neuropathic pain acute Anxiety acute Chronic pain syndrome acute Depression acute Peripheral neuropathic pain acute [facility] Work Phone: Evaluation note* Diagnosis Onset Date Resolution Status Anxiety acute Chronic pain syndrome acute Anxiety acute Chronic pain syndrome acute Depression acute Impaired mobility and ADLs a cute Peripheral neuropathic pain acute Anxiety acute Chronic pain syndrome acute [facility] Work Phone: Evaluation note* Diagnosis Onset Date Resolution Status Anxiety acute Chronic pain syndrome acute Acute parotitis acute Lumbar degenerative disc disease acute Peripheral neuropathic pain acute Anemia due to blood loss acu te [facility] Work Phone: Evaluation note* Diagnosis Onset Date Resolution Status Anxiety acute Chronic pain syndrome acute Acute parotitis acute Lumbar degenerative disc disease acute Peripheral neuropathic pain acute Anemia due to blood loss acu te Chronic gastrojejunal anastomotic ulcer acute Weakness acute [facility] Work Phone: Evaluation note* Diagnosis Onset Date Resolution Status Anxiety acute Chronic pain syndrome acute Acute parotitis acute Lumbar degenerative disc disease acute Peripheral neuropathic pain acute Anemia due to blood loss acu te Chronic gastrojejunal anastomotic ulcer acute Weakness acute Cellulitis of left foot acut e Left foot pain acute [facility] Work Phone: Evaluation note* Diagnosis Onset Date Resolution Status Anemia due to blood loss acu te Chronic gastrojejunal anastomotic ulcer acute Weakness acute Cellulitis of left foot acut e Left foot pain acute Anxiety acute Chronic pain syndrome acute Depression acute Left foot pain acute Anxiety acute Chronic pain syndrome acute [facility] Work Phone: Evaluation note* Diagnosis Pre-operative clearance Unspecified pre-operative examination Pre-op examination Heart valve disease Endocarditis, valve unspecified, unspecified cause Dilation of aorta (CMS-HCC) Essential hypertension Unspecified essential hypertension Smoker Tobacco use disorder documented in this encounter [facility] Work Phone: Evaluation note* Diagnosis Heart valve disease Endocarditis, valve unspecified, unspecified cause Dilation of aorta (CMS-HCC) Essential hypertension Unspecified essential hypertension BMI 32.0-32.9,adult Smoker Tobacco use disorder documented in this encounter [facility] Work Phone: Evaluation note* Diagnosis Lumbar stenosis with neurogenic claudication- Primary Spinal stenosis, lumbar region, with neurogenic claudication Hypokalemia Hypopotassemia Primary hypertension Unspecified essential hypertension documented in this encounter [employer] note* Diagnosis GI bleed- Primary Hemorrhage of [...] mention of obstruction documented in this encounter [facility] general Narrative - Reported* Type Description Date [...] Surgical History diskectomy Hospitalization History see above [facility] [employer] Other History general Narrative - ReportedNocooper [facility] memorial hospital [employer] Other Hospital Discharge instructions No data available for this section General Surgery [place] Progress note No data available for this section General Surgery [place] Reason for referral (narrative)No reason for referral information availableC[facility] Work Phone: Reason for visit Narrativereferral for pain management / orthoCypress [employer] Other Summary Purpose Family History No Family [...] Date/ Time Advance Directives No September 21 024 2:41pm Advance Directive Response Recorded Date/ Time Advance Directives No September 21 024 1:41pm Advance Directive Response Recorded Date/ Time Advance Directives No April 27, 2024 4:02pm Documents on File Type Date Recorded Patient [employer] Technician Expl anation ACP-Advance Directive 10/19/2017 4:34 PM [...] score >30% Yossi Hunter MD [address] [facility], [address] [address] Referral ID Status Reason Start Date Expiration Date Visits Requested Visits Authorized [id number] Pending Review Perform Procedure 07/01/2023 06/30/2024 1 1 Reason *FU 07/07 Lumbar D DD and radiculopathy Diagnosis 1 Lumbar degenerative disc disease (M51.36) Referral Organization [facility] ricardo Referring Provider First Name Maureen Referring Provider Last Name Mando Referring Provider Specialty [facility] Referred Organization [facility] Referred Provider Lisa,James Referred Address ,[place], [place],[address] Referred Provider Specialty Orthopedic S urgery Referral Priority Routine General Notes Joselyn Zee 12:44:56 PM >received today, notes locked, attachments made, referral faxed Specialty Diagnoses / Procedures Referred By Contac t Referred To Contact Radiology Diagnoses Heart valve disease Dilation of aorta (CMS/HCC) Procedures CT chest wo IV contrast Yossi Hunter MD [address] [facility], [address] [address] Referral ID Status Reason Start Date Expiration Date Visits Requested Visits Authorized [id number] Pending Review Perform Procedure 05/27/2023 05/26/2024 1 1 Specialty Diagnoses / Procedures Referred By Contac t Referred To Contact Cardiology Diagnoses Shortness of breath Heart valve disease Dizziness Dilation of aorta (CMS/HCC) Procedures Transthoracic Echo (TTE) Complete MT ECHO TTHRC R-T 2D W/WOM-MODE COMPL SPEC&COLR D Yossi Hunter MD [address] [facility] [address], [address] [place] [address] Referral ID Status Reason Start Date Expiration Date Visits Requested Visits Authorized [id number] Pending Review Perform Procedure 05/27/2023 05/26/2024 1 Chief Complaint and Reason for Visit [...] Patient here for a f/u in office Novem2023 3:27pm surgical clearance, Dr Vegas/Chrissy/dec omp/fusion April 08, 2024 2:57pm Reason for Visit Admit Date Anemia due to blood loss January 19 1:48pm Chronic gastrojejunal anastomotic ulcer January 20, 2024 1:48pm Weakness January 20, 2024 1: 48pm Cellulitis of left foot January 29 024 11:15am Left foot pain January 30, 2024 11:15am Anxiety February 26, 2024 2: 56pm Chronic pain syndrome February 26, 2024 2:56pm Depression February 26, 2024 2: 56pm Left foot pain February 26, 2024 2: 56pm Anxiety March 30, 2024 3 :27pm Chronic pain syndrome March 30, 2024 3:27pm Chief Complaint Admit Date Patient here for a f/u in office Novembe 2023 3:27pm surgical clearance, Dr Vegas/Chrissy/dec omp/fusion [...] April 08 2:57pm Lumbar degenerative disc disease Novem r 2023 2:57pm Peripheral neuropathic pain March 2:57pm Preoperative examination April 08, 2024 2:57pm Dysuria April 29, 2024 3 :15pm Hyponatremia April 29, 2024 3 :15pm Chief Complaint Admit Date surgical clearance, Dr Vegas/Lumb/dec omp/fusion April 08, 2024 2:57pm Discuss surgery/UA [...] April 08 2:57pm Lumbar degenerative disc disease [facility] r 2023 2:57pm Peripheral neuropathic pain March [...] 2 month f/u October 20, 2024 3:30pm long term December 07, 2024 11:5 9pm Amb Documentation December 13, 2024 10:1 3am alf visit December 23, 2024 11:5 9pm F/u via Virtual January 11, 2025 4: 15pm Reason for Visit Admit Date Anxiety October 20, 2024 3:30p m Chronic pain syndrome October 20, 2024 3:3 0pm Chief Complaint Admit Date Patient here for a 2 month f/u October 20, 2024 3:30pm long term December 07, 2024 11:5 9pm Amb Documentation December 13, 2024 10:1 3am alf visit December 23, 2024 11:5 9pm F/u via Virtual January 11, 2025 4: 15pm Virtual: Phone Call to Discuss Meds Augu st 2024 2:02pm Additional Source Comments INFORMATION SOURCE (unrecogn ized section and content) DATE CREATED AUTHOR 03/09/2018 [facility] DATE CREATED AUTHOR AUTHOR'S ORGANIZ ATION 08/07/2021 [facility] DATE CREATED AUTHOR AUTHOR'S ORGANIZ ATION 08/17/2021 [facility] DATE CREATED AUTHOR AUTHOR'S ORGANIZ ATION 01/18/2022 [facility] DATE CREATED AUTHOR AUTHOR'S ORGANIZ ATION 04/05/2022 [facility] DATE CREATED AUTHOR AUTHOR'S ORGANIZ ATION 11/16/2023 [facility] DATE CREATED AUTHOR AUTHOR'S ORGANIZ ATION 01/13/2024 [facility] DATE CREATED AUTHOR AUTHOR'S ORGANIZ ATION 01/24/2024 [facility] DATE CREATED AUTHOR AUTHOR'S ORGANIZ ATION 02/15/2024 [facility] DATE CREATED AUTHOR AUTHOR'S ORGANIZ ATION 05/08/2024 [facility] DATE CREATED AUTHOR AUTHOR'S ORGANIZ ATION 05/09/2024 [facility] DATE CREATED AUTHOR AUTHOR'S ORGANIZ ATION 06/17/2024 [facility] DATE CREATED AUTHOR AUTHOR'S ORGANIZ ATION 01/13/2025 [facility] DATE CREATED AUTHOR AUTHOR'S ORGANIZ ATION 01/22/2025 [facility] Care Team (unrecognized sect ion and [...] 30, 2024 End: March 30, 2024 Thi Vidal APRN Attending Provider Active Start: March 30, [...] October 14, 2023 End: October 14, 2023 Sports Agent Relationship Specialty Start Date End Date Maureen Mitchell MD [address] [place] [address] PCP - General Family Medicine 05/27/23 Sports Agent Relationship Specialty Start Date End Date Maureen Mitchell MD [address] [place] [address] PCP - General Family Medicine 05/27/23 Sports Agent Relationship Specialty Start Date End Date Maureen Mitchell MD [address] [place] [address] PCP - General Family Medicine 05/27/23 Yossi Hunter MD [address] [facility], [facility] [address] [place] [address] Corn Lab Technician Cardiology 06/17/23 Sports Agent Relationship Specialty Start Date End Date Maureen Mitchell MD [address] [place] [address] PCP - General Family Medicine 05/27/23 Yossi Hunter MD [address] [facility], [address] [address] Corn Lab Technician Cardiology 06/17/23 Sports Agent Relationship Specialty Start Date End Date Maureen Mitchell MD [address] [place] [place] [address] PCP - General Family Medicine 05/27/23 Yossi Hunter MD [address] [facility], [facility] [address] [place] [address] Corn Lab Technician Cardiology 06/17/23 Team Status: Active Member Role Status Dates Maureen Mitchell MD Primary Care Provider Active Start: July 23, 2023 Rachel Ruggiero , RMA Attending Provider Active Start : July 23, [...] September 12, 2023 End: September 12, 2023 Sports Agent Relationship Specialty Start Date End Date Maureen Mitchell MD [address] [place] [address] PCP - General Family Medicine 05/27/23 Yossi Hunter MD [address] [facility], [facility] [address] [place] [address] Corn Lab Technician Cardiology 06/17/23 Sports Agent Relationship Specialty Start Date End Date Maureen Mitchell MD [address] [place] [address] PCP - General Family Medicine 05/27/23 Yossi Hunter MD [address] [facility], [facility] [address] [place] [address] Corn Lab Technician Cardiology 06/17/23 Sports Agent Relationship Specialty Start Date End Date Maureen Mitchell MD PCP - General Family Medicine 10/18/17 Sports Agent Relationship Specialty Start Date End Date Maureen [...] Visit Specialty Diagnoses / Procedures Referred By Norberto abernathy Referred To Contact Cardiology Diagnoses Shortness of breath Heart valve disease Dizziness Dilation of aorta (CMS/HCC) Procedures Transthoracic Echo (TTE) Complete MT ECHO TTHRC R-T 2D W/WOM-MODE COMPL SPEC&COLR D Yossi Hunter MD [address] [facility], [address] [address] Referral ID Status Reason Start Date Expiration Date Visits Requested Visits Authorized [id number] Authorized Perform Procedure 05/27/2023 05/26/2024 1 1 Reason Comments Patient here for follow up Echo Specialty Diagnoses / Procedures Referred By Norberto abernathy Referred To Contact Radiology Diagnoses Essential hypertension Shortness of breath Angina pectoris, unstable (CMS/HCC) Procedures CT angio coronary art with heartflow if score >30% Yossi Hunter MD [address] [facility], [address] [address] Referral ID Status Reason Start Date Expiration Date Visits Requested Visits Authorized [id number] Authorized Perform Procedure 07/01/2023 06/30/2024 1 1 Reason Comments Pre-op Clearance POC to have lumbar s urgery on 04/21/[address] Jovana Guardado in [facility] Specialty Diagnoses / Procedures Referred By Norberto abernathy Referred To Contact Diagnoses Pre-operative clearance Procedures ECG 12 lead (Clinic Performed) Yossi Hunter MD [address] [facility], [address] [address] Phone: tel: fax: Referral ID Status Reason Start Date Expiration Date V isits Requested Visits Authorized [id number] Authorized 04/07/2024 04/07/2025 1 1 Reason Comments Pre-op Clearance POC to have lumbar s urgery on pending with Dr. Jovana Guardado in [facility] Specialty Diagnoses / Procedures Referred By Norberto abernathy Referred To Contact Diagnoses Foraminal stenosis of lumbosacral region Foraminal stenosis of lumbosacral region [M48.07] Procedures MT ARTHRODESIS POSTERIOR/PSTLAT TQ 1NTRSPC LUMBAR MT KU FACETECTOMY&FORAMOT 1 VRT SGM EA ADDL SGM MT KU FACETECTOMY & FORAMOTOMY 1 VRT SGM LUMBAR MT POSTERIOR NON-SEGMENTAL INSTRUMENTATION MT AUTOGRAFT SPINE SURGERY LOCAL FROM SAME INCISION L4-L5 REVISION DECOMPRESSION WITH FUSION L4-L5 REVISION DECOMPRESSION WITH FUSION L4-L5 REVISION DECOMPRESSION WITH FUSION L4-L5 REVISION DECOMPRESSION WITH FUSION L4-L5 REVISION DECOMPRESSION WITH FUSION Jovana Holloway MD [address] [place] [address] [place] [address] [facility] [address] [place] [address] Referral ID Status Reason Start Date Expiration Date Visits Re quested Visits Authorized [id number] 1 1 Specialty Diagnoses / Procedures Referred By Norberto abernathy Referred To Contact Diagnoses GI bleed GI Bleed, [facility] Suzanne Pretty MD [facility] [address] [address] [facility] [address] [place] [address] Referral ID Status Reason Start Date Expiration Date Visits Re quested Visits Authorized [id number] 1 1 Goals (unrecognized section and content) [...] Patterson RN) 0844 (Given - Provider: Genevieve Jones RN) 1023 (Given - Provider: Genevieve Jones RN) [...] Provider: Conchita Patterson RN)1349 (Given - Provider: oCnchita Patterson RN)2119 (Given - Provider: Luba Caldwell RN) 0842 (Given - Provider: Genevieve Jones RN)175 (Not Given - Provider: Genevieve Jones RN - Reason: Other)2136 (Given - Provider: Luba Caldwell RN) 1029 (Given - Provider: Genevieve Jones RN)1456 (Given - Provider: Genevieve Jones RN)1999 (Due) sennosides-docusate sodium (SENOKOT-S) 8.6-50 MG tablet 1 tablet 1 tablet, Oral, 2 TIMES DAILY, First dose on Fri06/08/24 at 2100, Until Discontinued, Post-op 09 (Not Given - Provider: Conchita Patterson RN - Reason: Patient/family refused - Comment: refusing laxitives and softeners)2125 (Not Given - Provider: Luba Caldwell RN - Reason: Patient/family refused) 0842 (Given - Provider: Genevieve Jones RN)2138 (Not Given - Provider: Luba Caldwell RN - Reason: Patient/family refused) 103 (Not Given - Provider: Genevieve Jones RN - Reason: Patient/family refused)2099 (Due) sertraline (ZOLOFT) tablet 200 mg 200 mg, Oral, Nightly, First dose on Fri06/08/24 at 2100, Until Discontinued 2119 (Given - Provider: Luba Caldwell RN) 2137 (Given - Provider: Luba Caldwell RN) 2099 (Due) sodium chloride flush 0.9 % injection [...] IV Fluid Infusing)2125 (Given - Provider: Luba Caldwell, RN) 0850 (Given - Provider: Genevieve Jones, RN)2138 (Given - Provider: Luba Caldwell RN) 1023 (Given - Provider: Genevieve Jones RN)2100 (Due) Continuous Medication Order 06/09/2024 06/10/2024 06/11/2024 0.9 % sodium chloride infusion IntraVENous, at 125 mL/hr, CONTINUOUS, Starting on Fri06/08/24 at 1930, Post-op 0005 (Rate/Dose Verify - Provider: Alyssa Lantigua RN) 1528 (Stopped - Provider: Genevieve Jones, RN) PRN Medication Order 06/09/2024 06/10/2024 06/11/2024 0.9 [...] Patterson RN) 0304 (Given - Provider: Luba Caldwell RN) ALPRAZolam (XANAX) tablet 0.5 mg 0.5 mg, Oral, EVERY 4 HOURS PRN, Starting on Fri06/08/24 at 1847, Until Discontinued, Anxiety 0340 (Given - Provider: Alyssa Lantigua RN)1512 (Given - Provider: Conchita Brown, RN)2123 (Given - Provider: Luba Caldwell RN) 0305 (Given - Provider: Luba Caldwell RN)0842 (Given - Provider: Genevieve Jones RN)1254 (Given - Provider: Genevieve Jones RN)1749 (Given - Provider: Genevieve Jones RN)2137 (Given - Provider: Luba Caldwell RN) 0137 (Given - Provider: Luba Caldwell RN)0616 (Given - Provider: Lbua Caldwell RN)1022 (Given - Provider: Genevieve Jones RN)1453 (Given - Provider: Genevieve Jonse RN) bisacodyl (DULCOLAX) suppository 10 mg 10 [...] 4) 40 mEq, Oral, PRN, Starting on Fri06/10/24 [...] 4) 40 mEq, Oral, PRN, Starting on Fri06/10/24 [...] 4) 10 mEq, IntraVENous, PRN, Starting on Fri06/10/24 at 1242, Until Discontinued, at 100 mL/hr, [...] mL 5-40 mL, IntraVENous, PRN, Starting on Fri06/08/24 at 1909, Until [...] or Central Line = 20 mL/lumen, Post-op 913 (Given - Provider: Conchita Patterson RN) Linked [...] Oral, EVERY 6 HOURS PRN, Starting on Tu06/08/24 at 1748, Until 06/09/24 at 1415, Pain Severe (7-10), Post-op Group 4: potassium chloride (KLOR-CON M) extended release tablet 40 mEqJump to med 40 mEq, Oral, PRN, Starting on Corinne [...] med 40 mEq, Oral, PRN, Starting on Corinne [...] Until Discontinued 1305 (Given - Provider: Sissy Hardy RN) 0828 (Given - Provider: Ana Malone, TIFFANIE) carvedilol (COREG) tablet 6.25 mg (CANCELED) 6.25 [...] Christopher Morataya MD)1734 (Given - Provider: Lamar Zepeda, TIFFANIE) 0820 (Given - Provider: Sissy Hardy, TIFFANIE) carvedilol (COREG) tablet 6.25 mg 6.25 mg, Oral, 2 TIMES DAILY WITH MEALS, First dose (after last modification) on Fri01/04/24 at 1700, Until Discontinued, Hold if SBP less than 110, heart rate less than 55 Administer with food to minimize the risk of orthostatic hypotension 1554 (Given - Provider: Sissy Hardy RN) 0828 (Given - Provider: Ana Malone, TIFFANIE)1555 (Not Given - Provider: Ana Malone RN - Reason: Order parameters not met - Comment: SBP <100 (100/70)) cyanocobalamin injection 1,000 mcg 1,000 mcg, IntraMUSCular, ONCE, 1 dose, On Fri01/01/24 at 1815 labetalol (NORMODYNE;TRANDATE) injection 10 mg (CANCELED) 10 mg, IntraVENous, EVERY 6 HOURS, First dose on Fri01/02/24 at 1430, Until Discontinued 0342 (Given - Provider: Dasha Brady RN)0757 (Given - Provider: Lamar Zepeda, TIFFANIE) pantoprazole (PROTONIX) 40 mg in sodium chloride [...] 80 mg, IntraVENous, ONCE, 1 dose, On Corinne 01/01/24 at 1015 pregabalin (LYRICA) capsule 200 mg 200 mg, Oral, 3 TIMES DAILY RESP, First dose on Fri12/31/23 at 0800, Until Discontinued 075 (Given - Provider: Lamar Zepeda RN)1347 (Given - Provider: Lamar Zepeda RN)2042 (Given - Provider: Diane Eng RN) 08 (Given - Provider: Sissy Hardy RN)130 (Given - Provider: Sissy Hardy, RN)2004 (Given - Provider: Juany Dejesus RN) 0828 (Given - Provider: Ana Malone RN)1432 (Given - Provider: Ana Malone RN)1999 (Due) sertraline (ZOLOFT) tablet 200 mg 200 mg, Oral, Nightly, First dose on Fri12/30/23 at 2345, Until Discontinued 2042 (Given - Provider: Diane Eng RN) 2004 (Given - Provider: Juany Dejesus RN) 2099 (Due) sodium chloride flush 0.9 % injection [...] mL/lumen 0758 (Given - Provider: Lamar Zepeda RN)204 (Given - Provider: Diane Eng RN) 0820 (Given - Provider: Sissy Hardy RN)2008 (Given - Provider: Juany Dejesus RN) 08 (Given - Provider: Ana Malone, RN)2100 (Due) sucralfate (CARAFATE) tablet 1 g [...] Lamar Zepeda RN - Comment: waiting for dose)2042 (Given - Provider: Diane Eng RN)222 (Given - Provider: Diane Eng RN) 0553 (Given - Provider: Diane Eng RN)1305 (Given - Provider: Sissy Hardy RN)2226 (Given - Provider: Flaco Stevenson RN) 0846 (Given - Provider: Ana Malone, RN)1432 (Given - Provider: Ana Malone, RN)2200 (Due) Continuous Medication Order 01/03/2024 01/04/2024 [...] RN) 0959 (New Bag - Provider: Ana Malone RN)1813 (Stopped - Provider: Ana Malone RN) pantoprazole (PROTONIX) 80 mg in sodium chloride 0.9 % 100 mL infusion () 8 mg/hr (10 mL/hr), IntraVENous, CONTINUOUS, Starting on Corinne 01/01/24 at 1015, Until 01/04/24 at 1014 0257 (Rate/Dose Verify - Provider: Dasha Brady RN)0258 (Rate/Dose Verify - Provider: Dasha Brady RN)0258 (Stopped - Provider: Dasha Brady RN)0258 (New Bag - Provider: Dasha Brady RN)0730 (Rate/Dose Verify - Provider: Dasha Brday RN)0731 (Rate/Dose Verify - Provider: Dasha Brady RN)1110 (Paused - Provider: Diane Eng RN)1117 (Restarted - Provider: Diane Eng RN)1309 (Rate/Dose Verify - Provider: Diane Eng RN)1309 (Rate/Dose Verify - Provider: Diane Eng RN)1351 (Rate/Dose Verify - Provider: Diane Eng RN)1351 (Rate/Dose Verify - Provider: Diane Eng RN)1400 (Stopped - Provider: Diane Eng RN)1400 (New Bag - Provider: Lamar Zepeda RN)1400 (Rate/Dose Verify - Provider: Diane Eng RN)203 (Rate/Dose Verify - Provider: Diane Eng RN)2057 (Rate/Dose Verify - Provider: Diane Eng RN)222 (Rate/Dose Verify - Provider: Diane Eng RN)2328 (Rate/Dose Verify - Provider: Diane Eng RN)2329 (Rate/Dose Verify - Provider: Diane Eng RN)2330 (Stopped - Provider: Diane Eng RN)2330 (New Bag - Provider: Diane Eng RN) 0604 (Rate/Dose Verify - Provider: Diane Eng RN)0719 (Rate/Dose Verify - Provider: Sissy Hardy RN)0823 (Rate/Dose Verify - Provider: Sissy Hardy RN)1023 (Rate/Dose Verify - Provider: Sissy Hardy RN)1023 (Rate/Dose Verify - Provider: Sissy Hardy RN)1134 (Stopped - Provider: Sissy Hardy RN) 1821 (Stopped - Provider: Ana Malone RN - Comment: stopped for avs) PRN [...] of order. 182 (Stopped - Provider: Ana Malone RN [...] has been cleared of remaining blood product. 1821 (Stopped - Provider: Ana Malone RN - Comment: stopped for avs) 0.9 % sodium chloride infusion IntraVENous, at 240 mL/hr, Administer over 10 Minutes, PRN, blood administration, Starting on Corinne 01/01/24 at 1629, For 1 dose, For use in priming line prior to transfusion (prime via gravity) and flush line post transfusion ONLY. Discontinue once line has been cleared of remaining blood product. 1821 (Stopped - Provider: Ana Malone RN - [...] Anxiety 0917 (Given - Provider: Lamar Zepeda RN)204 (Given - Provider: Diane Eng RN) 06 (Given - Provider: Diane Eng RN)113 (Given - Provider: Sissy Hardy RN)2008 (Given - Provider: Juany Dejesus RN) benzonatate (TESSALON) capsule 200 mg 200 mg, Oral, 3 TIMES DAILY PRN, Starting on Fri12/31/23 at 0631, Until Discontinued, Cough guaiFENesin (MUCINEX) extended release tablet 600 mg 600 mg, Oral, 2 TIMES DAILY PRN, Starting on Fri12/31/23 at 0631, Until Discontinued, Congestion, Cough, Do not crush or break. 0628 (Given - Provider: Diane Eng RN) hydrALAZINE (APRESOLINE) injection 20 mg 20 mg, IntraVENous, EVERY 4 HOURS PRN, Starting on Fri12/30/23 at 2329, Until Discontinued, High Blood Pressure, SBP > 150 1132 (Given - Provider: Lamar Zepeda RN) 0400 (Given - Provider: Diane Eng RN) HYDROmorphone [...] Moderate (4-6) 1515 (Given - Provider: Rebecca Diaz, RN) oxyCODONE (ROXICODONE) immediate release tablet 20 mg(Linked Group 2) 20 mg, Oral, EVERY 4 HOURS PRN, Starting on Fri12/30/23 at 2326, Until Discontinued, Pain Severe (7-10) 1515 (See Alternative - Provider: Rebecca Diaz, TIFFANIE) potassium bicarb-citric acid (EFFER-K) effervescent tablet 40 [...] TIFFANIE)1431 (See Alternative - Provider: Ana Malone, TIFFANIE)1540 [...] Malone, TIFFANIE)1116 (See Alternative - Provider: Ana Malone RN)1214 (See Alternative - Provider: Ana Malone RN)1301 (See Alternative - Provider: Ana Malone, TIFFANIE)1431 (See Alternative - Provider: Ana Malone, TIFFANIE)1540 (See Alternative - Provider: nAa Malone RN) potassium chloride 10 mEq/100 mL IVPB [...] Brady RN)0755 (See Alternative - Provider: Lamar Zepeda, TIFFANIE) 0621 (See Alternative - Provider: Diane Eng RN) 1000 (New Bag - Provider: Ana Malone RN)1116 (New Bag - Provider: Ana Malone RN)1214 (New Bag - Provider: Ana Malone RN)1301 (New Bag - Provider: Ana Malone RN)1431 (New Bag - Provider: Ana Malone RN)1540 (New Bag - Provider: Ana Malone RN) sodium chloride flush 0.9 % injection 5-40 mL 5-40 mL, IntraVENous, PRN, Starting on Fri12/30/23 at 1818, Until Discontinued, Line Care, After every IV [...] 20 mL/lumen 2009 (Given - Provider: Juany Dejesus RN) SUMAtriptan (IMITREX) tablet 100 mg (COMPLETED) 100 mg, Oral, Once as needed, 1 dose, Starting on Fri01/05/24 at 1000, Until Fri01/05/24 at 1211, Migraine, Substituted for Eletriptan (RELPAX). 121 (Given - Provider: Ana Malone RN) Linked Groups Order Group 1: acetaminophen (TYLENOL) tablet 650 mgJump to med 650 mg, Oral, EVERY 6 HOURS PRN, Starting on Fri12/30/23 at 1818, Until Discontinued, Pain Mild (1-3), Fever, For temp greater than 100.4 F (38 C), Maximum dose of acetaminophen is 4000 mg from all sources in 24 hours. Or acetaminophen (TYLENOL) suppository 650 mgJump to med 650 mg, Rectal, EVERY 6 HOURS PRN, Starting on Fri12/30/23 at 181, Until Discontinued, Pain Mild (1-3), Fever, For [...] BE BASED ON THE PRIMARY CLINICAL RECORDS. [facility] [employer] [facility] provides no warranty or guarantee of the accuracy or completeness of information in this document.
--- NOTE | 2025-01-22 15:10 | PC.NURSE ---
Dr. Mondragon notified of abnormal bp, heart rate, respirations and temperature
[2025-01-22] MEDS: METOPROLOL TARTRATE 5 MG/5 ML VIAL 2.5 MG IVP ×2 (15:57→16:52)
[2025-01-22] MEDS: ALBUMIN HUMAN 25 GM/100 ML PREMIX IV ×2 (16:01→20:28)
[2025-01-22] MEDS: ACETAMINOPHEN 325 MG TABLET 650 MG PO (16:08)
[2025-01-22] MEDS: POTASSIUM CHLORIDE 10 MEQ ER TABLET 20 MEQ PO (16:08)
[2025-01-22] MEDS: METOPROLOL TARTRATE 25 MG TABLET PO (16:43)
[2025-01-22] MEDS: IMIPENEM/CILASTATIN SODIUM 1,000 MG in 0.9 % SODIUM CHLORIDE 250 ML 250 MG IV (18:09)
--- NOTE | 2025-01-22 18:12 | PC.NURSE ---
Dr. Mondragon notified of patients BP
[2025-01-22] MEDS: HYDROCORTISONE SODIUM SUCC PF 100 MG/2 ML VIAL IVP (18:27)
[2025-01-22] MEDS: 0.9 % SODIUM CHLORIDE 500 ML IV (18:27)
[2025-01-22] MEDS: MIDODRINE HCL 5 MG TABLET 15 MG PO (18:27)
[2025-01-22] MEDS: NOREPINEPHRINE BITARTRATE/D5W 4 MG/250 ML PREMIX 30 MG IV (19:56)
--- NOTE | 2025-01-22 19:58 | PC.NURSE ---
1930; Notified DR. Benedict of pt's blood pressure of 67/51 and pt not responding to this nurse. New orders received
[2025-01-22] MEDS: VANCOMYCIN HCL 1,500 MG in 0.9 % SODIUM CHLORIDE 500 ML 250 MG IV (21:55)
[2025-01-22 22:58] LABS: A. calcoaceticus-baumannii Cpx NOT DETECTED (NOT DETECTE); Bacteroides fragilis NOT DETECTED (NOT DETECTE); Candida auris NOT DETECTED (NOT DETECTE); Candida glabrata NOT DETECTED (NOT DETECTE); Enterococcus faecalis NOT DETECTED (NOT DETECTE); Enterococcus faecium NOT DETECTED (NOT DETECTE); Klebsiella aerogenes NOT DETECTED (NOT DETECTE); Klebsiella pneumoniae group NOT DETECTED (NOT DETECTE); Proteus spp. NOT DETECTED (NOT DETECTE); Salmonella spp. NOT DETECTED (NOT DETECTE); Serratia marcescens NOT DETECTED (NOT DETECTE); Staphylococcus epidermidis NOT DETECTED (NOT DETECTE); Staphylococcus lugdunensis NOT DETECTED (NOT DETECTE); Staphylococcus spp. NOT DETECTED (NOT DETECTE); Stenotrophomonas maltophilia NOT DETECTED (NOT DETECTE); Streptococcus pyogenes NOT DETECTED (NOT DETECTE); Streptococcus spp. NOT DETECTED (NOT DETECTE)
[2025-01-22 23:52] LABS: Cannabinoid Screen Urine NEGATIVE (NEGATIVE); Methamphetamines Screen Urine NEGATIVE (NEGATIVE); Tricyclic Antidepressant Urine POSITIVE (NEGATIVE)
[2025-01-23] VITALS (103 sets, daily range): BP systolic 84–156; BP diastolic 60–118; PULSE 73–117; TEMP 36.3–37.1; O2SAT 91–98
[2025-01-23 00:20] LABS: Source Blood
[2025-01-23 00:23] LABS: CTX-M DETECTED (NOT DETECTE); Enterobacterales DETECTED (NOT DETECTE)
[2025-01-23] MEDS: ENOXAPARIN SODIUM 80 MG/0.8 ML SYRINGE SUBQ ×3 (00:33→22:46)
[2025-01-23] MEDS: ACETAMINOPHEN 325 MG TABLET 650 MG PO ×2 (00:33→06:37)
[2025-01-23] MEDS: IMIPENEM/CILASTATIN SODIUM 1,000 MG in 0.9 % SODIUM CHLORIDE 250 ML 250 MG IV ×3 (02:46→17:06)
[2025-01-23 06:51] LABS: Hematocrit 25.7 % (36.0-48.0); Hemoglobin 8.0 g/dL (12.0-16.0); Mean Corpuscular HGB Conc 31.1 g/dL (29.9-35.2); Mean Corpuscular Hemoglobin 27.8 pg (26.7-34.0); Mean Corpuscular Volume 89.2 fL (81.0-99.0); Platelet Count 126 10^3/uL (150-450); Red Blood Count 2.88 10^6/uL (4.20-5.40); White Blood Count 8.6 10^3/uL (4.0-11.0)
[2025-01-23 06:58] LABS: Alanine Aminotransferase 17 U/L (14-59); Albumin Globulin Ratio 0.6; Albumin Level 2.2 g/dL (3.4-5.0); Alkaline Phosphatase 126 U/L (46-116); Anion Gap 14.1; Aspartate Amino Transferase 98 U/L (15-37); Blood Urea Nitrogen 5.0 mg/dL (7.0-18.0); Calcium 8.1 mg/dL (8.5-10.1); Carbon Dioxide 22.9 mmol/L (21.0-32.0); Chloride 108 mmol/L (98-107); Estimated GFR (African America >60 (>=60 mL/min/1.73m^2); Estimated GFR (Non-African Ame >60 (>=60 mL/min/1.73m^2); Globulin 3.5 g/dL; Glucose 110 mg/dL (74-106); Magnesium 1.9 mg/dL (1.8-2.4); Potassium 3.0 mmol/L (3.5-5.1); Sodium 142 mmol/L (136-145); Total Protein 5.7 g/dL (6.4-8.2)
[2025-01-23] MEDS: ASPIRIN 325 MG TABLET PO (08:22)
[2025-01-23] MEDS: OXYCODONE HCL 5 MG TABLET PO ×3 (08:22→20:43)
[2025-01-23] MEDS: ALPRAZOLAM 0.5 MG TABLET PO (08:23)
--- NOTE | 2025-01-23 11:00 | PM.HP ---
HPI H&P: HPI History of Present Illness Chief complaint: AMS UTI CHRONIC PE Narrative: Mrs. Frazier is a 54-year-old female who was brought to the emergency room by squad for evaluation of altered mental status. Patient was found to be hypotensive. Altered mental status, confusion and disorientation Patient was found to have sepsis and UTI. Patient was admitted to the medical floor?subsequently became hypotensive requiring aggressive intravenous resuscitation and initiation of Levophed drip. Patient improved overnight. Levophed drip was weaned off. Her mental status also improved and back to baseline state. Patient is able to answer questions and communicate. Patient had ankle fracture about a month ago. [facility] and [facility] and subsequently was discharged home. According to patient and her she has not been ambulatory since then. Opioid HPI Opioid Management Most Recent Pain and Opioid Data: Last Pain Scale 5 Today, 10:54 Last Pain Assessment 01/22/25, 15:00 Last ORT Total Score 0 11/30/24, 21:41 Last ORT Risk Category Low Risk 11/30/24, 21:41 Ur Phencyclidine Scrn, (NEGATIVE) Negative 01/22/25, 23:16 Review of Systems ROS Status of ROS 10 or more systems reviewed and unremarkable except as noted in history and below [facility] Medical History (Updated 01/23/25 @ 11:05 by Jackson Mondragon MD) HTN (hypertension) ?I10 - Essential (primary) hypertension (ICD-10) Thickening of wall of gallbladder ?K82.8 - Other specified diseases of gallbladder (ICD-10) Syncope ?R55 - Syncope and collapse (ICD-10) Peripheral neuropathy ?G62.9 - Polyneuropathy, unspecified (ICD-10) Chronic bilateral back pain ?M54.9 - Dorsalgia, unspecified (ICD-10) ?G89.29 - Other chronic pain (ICD-10) Afib ?I48.91 - Unspecified atrial fibrillation (ICD-10) Aortic aneurysm ?I71.9 - Aortic aneurysm of unspecified site, without rupture (ICD-10) GI bleed ?K92.2 - Gastrointestinal hemorrhage, unspecified (ICD-10) Surgical History Previous back surgery ?Z98.890 - Other specified postprocedural states (ICD-10) Status post abdominoplasty ?Z98.890 - Other specified postprocedural states (ICD-10) Status post abdominoplasty ?Z98.890 - Other specified postprocedural states (ICD-10) H/O hysterectomy with oophorectomy H/O: hysterectomy ?Z90.710 - Acquired absence of both cervix and uterus (ICD-10) Gastric bypass status for obesity ?Z98.84 - Bariatric surgery status (ICD-10) Family History Mother Family history of cancer Family history of hypertension Social History (Updated 11/30/24 @ 21:55 by Kat Escobedo RN) Within the past year, how often did you have a drink containing alcohol: 2-4 times a month Within the past year, how often did you have six or more drinks on one occasion: never Smoking status: Former smoker Non-prescribed substance use: denies use Previous occupational history: disabled Known occupational exposures/hazards: No Highest level of school completed/degree received: don't know Are you now , , , , never or living with a partner: In a typical week, how many times do you talk on the telephone with family, friends, or neighbors: 3 or more times per week Little interest or pleasure in doing things: not at all Feeling down, depressed, or hopeless: not at all Feel stressed/tense/nervous/anxious/difficulty sleeping: rather much Life stressor details: medical condition Meds Home Medications and Allergies Home Medications ?Medication ?Instructions ?Recorded ?Confirmed ?Type acetaminophen 325 mg tablet 650 mg (2 x 325 mg) PO Q6H PRN 12/06/24 01/22/25 Rx (Tylenol) Pain/FEVER #0 tabs albuterol sulfate 2.5 mg/3 mL 2.5 mg (3 mL) inhalation Q6H PRN 12/06/24 01/22/25 Rx (0.083 %) solution for nebulization SHORTNESS OF BREATH/WHEEZING #0 mL alprazolam 0.5 mg tablet 0.5 mg PO BID PRN anxiety 5 days 12/06/24 01/22/25 Rx #10 tabs aspirin 325 mg tablet 325 mg PO DAILY #30 tabs 12/06/24 01/22/25 Rx ipratropium 0.5 mg-albuterol 3 mg 3 ml inhalation RTBID #0 mL 12/06/24 01/22/25 Rx (2.5 mg base)/3 mL nebulization soln metoprolol tartrate 25 mg tablet 25 mg PO BID #0 tabs 12/06/24 01/22/25 Rx trazodone 50 mg tablet 50 mg PO HS #30 tabs 12/06/24 01/22/25 Rx amitriptyline 75 mg tablet 75 mg PO .QHS 01/22/25 01/22/25 History docusate sodium 100 mg capsule 100 mg PO DAILY PRN constipation 01/22/25 01/22/25 History ([facility]) oxycodone 10 mg tablet 10 mg PO Q6H PRN pain 01/22/25 01/22/25 History potassium chloride 20 mEq 20 meq PO DAILY 01/22/25 01/22/25 History tablet,extended release(part/cryst) pregabalin 50 mg capsule 50 mg PO Q8H 01/22/25 01/22/25 History sodium chloride 1 gram tablet 1,000 mg PO TID 01/22/25 01/22/25 History Allergies Allergy/AdvReac Type Severity Reaction Status Date / Time NSAIDS (Non-Steroidal AdvReac Intermediate Gastrointestinal Verified 01/22/25 13:50 Anti-Inflamma Upset Exam Narrative Exam Narrative: Patient is lying in bed. Awake and alert. Able to answer questions. Able to follow command. Able to lift up her upper extremities against resistance. Able to lift upper lower extremities against gravity but not resistance. Pale skin buccal mucosa. Chest is clear, heart is regular. Abdomen soft, nontender. Constitutional Vital Signs, click to edit/add: Last Vital Signs Temp 97.6 F 01/23/25 07:19 Pulse 106 H 01/23/25 10:30 Resp 22 H 01/23/25 10:30 BP 105/78 01/23/25 10:28 Pulse Ox 91 L 01/23/25 10:42 O2 Del Method Nasal Cannula 01/23/25 07:19 O2 Flow Rate 1 01/23/25 07:19 Results Labs Labs: Short CBC 01/22/25 01/23/25 Range/Units 11:03 06:24 WBC 10.7 8.6 (4.0-11.0) 10^3/uL Hgb 11.4 L 8.0 L (12.0-16.0) g/dL Hct 36.3 25.7 L (36.0-48.0) % Plt Count 177 126 L (150-450) 10^3/uL BMP 01/22/25 01/23/25 11:03 06:24 Sodium 137 142 Potassium 3.5 3.0 L Chloride 102 108 H Carbon Dioxide 25.3 22.9 BUN 3.0 L 5.0 L Creatinine 0.83 0.65 Glucose 102 110 H Calcium 8.4 L 8.1 L Liver Function 01/22/25 01/23/25 Range/Units 11:03 06:24 Total Bilirubin 1.7 H 1.3 H (0.2-1.0) mg/dL AST 99 H 98 H (15-37) U/L ALT 20 17 (14-59) U/L Alkaline Phosphatase 202 H 126 H (46-116) U/L Albumin 1.8 L 2.2 L (3.4-5.0) g/dL ABG ABG results: 01/22/25 10:47 ABG pH 7.475 H ABG pCO2 32.0 L ABG pO2 68.9 L ABG HCO3 23.5 ABG O2 Saturation 94.8 ABG Base Excess 0 Assessment and Plan Assessment and Plan (1) Severe sepsis: (2) Septic shock: (3) UTI (urinary tract infection): (4) ESBL (extended spectrum beta-lactamase) producing bacteria infection: (5) Encephalopathy: (6) Hypokalemia: (7) Hypomagnesemia: Plan Severe sepsis with septic shock present on admission Urinary tract infection ESBL bacteremia, suspect urinary system as a source Patient had required aggressive intravenous fluid resuscitation and initiation of Levophed drip. She was started on Primaxin. She had received 1 dose of vancomycin. Patient also had received albumin, midodrine and Solu-Cortef Her septic shock had improved. Patient was weaned off Levophed drip. Continue to biotic pending final urine and blood report and sensitivity. Pulmonary embolism. I started patient on Lovenox 1 mg/kg twice a day. Echocardiogram rule out cardiac strain. Convert to oral anticoagulation once her hemoglobin is stable Requested venous study of the legs rule out DVT. If extensive, consideration for thrombolysis. Anemia, no evidence of acute blood loss. Hemoglobin drop overnight which likely caused by aggressive IV fluid resuscitation Requested a stool Hemoccult. Nurse reported that her stool is not bloody or dark. Started the patient on PPI Requested H&H every 8 hours Blood transfusion if needed So far no evidence of active or massive blood loss Patient will likely require to have anemia workup to be done in the outpatient setting to be handled by PCP in collaboration with other needed outpatient providers.This may include but not limited to EGD, colonoscopy, referral to see hematology and other needed age-appropriate cancer screening. Altered mental status, confusion and disorientation on presentation likely secondary to metabolic and septic encephalopathy. Significant and rapid resolution overnight. Patient is back to baseline state. Thrombocytopenia which is likely secondary to severe sepsis and septic shock Monitor platelets level while patient is on Lovenox. Functional disability. Patient has not been ambulatory since her ankle fracture a month and a half ago. [facility]. Patient was discharged back home. stated that the patient is not ambulating. Repeat x-ray of the ankle to monitor healing. Hypokalemia and hypomagnesemia Potassium and magnesium supplementation. Phosphorus level is normal. Probable urinary retention Elaine catheter removal and trial of voiding. Intermittent SVT on the monitor. Likely caused by sepsis, septic shock, hypokalemia and hypomagnesemia Echocardiogram rule out cardiomyopathy or pulmonary embolism strain on the heart Replete potassium and magnesium as been done already COPD with chronic hypoxic respiratory failure on [address] chest does not show any pneumatic infiltration or nodules. Recommend PFTs in the outpatient setting. Chronic medical conditions not listed above, incidental findings seen on labs and imaging. These would need to be addressed. Could be addressed when time and condition are appropriate. Could be addressed in the outpatient setting by PCP collaboration with other needed outpatient providers. I spent about 2 hours of critical care evaluation and the management since midnight taking care of her unstable condition, sepsis and septic shock. Urinary Catheter Management Urinary Catheter Management Urethral: Cath placed during this visit: yes Urethral indwelling: No Insertion date: 01/22/25 Insertion time: 23:18
[2025-01-23] MEDS: PANTOPRAZOLE SODIUM 40 MG VIAL IV (11:15)
[2025-01-23] MEDS: POTASSIUM CHLORIDE 10 MEQ ER TABLET 40 MEQ PO (11:15)
--- NOTE | 2025-01-23 11:16 | XR_ITS ---
The [place] [address] Patient Name: RASHID BOOTH MRN: [id number] date: 1970 Sex: F Assigned Patient Location: MS Current Patient Location: MS Accession/Order Number: [id number] Exam Date: 01/23/2025 13:00 Report Date: 01/23/2025 14:56 At the request of: JARROD MUÑOZ MD Procedure: XR ankle DELFINO min 3V XR ankle DELFINO min 3V 01/23/2025 1:32 PM SIGNS AND SYMPTOMS: ^Follow-up on previous bilateral ankle fractures PROTOCOL: Frontal, lateral, and oblique radiographs of the bilateral ankles COMPARISON: 06/01/2024 and 11/30/2024 FINDINGS: There is a longitudinally oriented fracture of the right lateral malleolus which is mildly displaced showing no significant change in alignment. No significant interval healing. The ankle mortise is preserved. There is diffuse soft tissue swelling. There is Achilles surface calcaneal spurring. Left ankle mortise is preserved. There are no acute or healing fractures visible. There is plantar and Achilles surface calcaneal spurring. There is diffuse soft tissue swelling. XR/XR ankle DELFINO min 3V IMPRESSION: There is a longitudinally oriented fracture of the right lateral malleolus which is mildly displaced showing no significant change in alignment. No significant interval healing. No acute displaced fractures of the left ankle. There is diffuse soft tissue swelling bilaterally. There is plantar and Achilles surface calcaneal spurring bilaterally. Impression dictated by: Lamonte Szymanski M.D. 01/23/2025 2:56 PM Dictation Location: [place] [address] Electronically authenticated by: [id number] Y Date: 01/23/2025 14:56
[2025-01-23] MEDS: DIPHENOXYLATE HCL 2.5 MG/ATROPINE 0.025 MG TABLET 1 TAB PO (11:24)
[2025-01-23 14:13] LABS: Hematocrit 25.9 % (36.0-48.0); Hemoglobin 8.2 g/dL (12.0-16.0)
[2025-01-23 14:16] LABS: IMP NOT DETECTED (NOT DETECTE); KPC NOT DETECTED (NOT DETECTE); NDM NOT DETECTED (NOT DETECTE); OXA-48-like NOT DETECTED (NOT DETECTE); VIM NOT DETECTED (NOT DETECTE); mcr-1 NOT DETECTED (NOT DETECTE)
[2025-01-23 14:33] LABS: Iron 8.0 ug/dL (50.0-170.0); Percent Iron Saturation 6.3 %; Total Iron Binding Capacity 126.0 ug/dL (250.0-450.0)
[2025-01-23 14:48] LABS: Ferritin 95.0 ng/mL (8.0-252.0); Folate 3.20 ng/mL (8.60-58.90)
[2025-01-24] VITALS (40 sets, daily range): BP systolic 94–166; BP diastolic 70–134; PULSE 94–120; TEMP 36.6–36.9; O2SAT 88–96
[2025-01-24] MEDS: ALPRAZOLAM 0.5 MG TABLET PO ×2 (00:13→08:25)
[2025-01-24] MEDS: IMIPENEM/CILASTATIN SODIUM 1,000 MG in 0.9 % SODIUM CHLORIDE 250 ML 250 MG IV ×3 (02:13→17:30)
[2025-01-24] MEDS: DIPHENOXYLATE HCL 2.5 MG/ATROPINE 0.025 MG TABLET 1 TAB PO (02:15)
[2025-01-24 06:20] LABS: Hematocrit 24.8 % (36.0-48.0); Hemoglobin 7.7 g/dL (12.0-16.0); Mean Corpuscular HGB Conc 31.0 g/dL (29.9-35.2); Mean Corpuscular Hemoglobin 27.5 pg (26.7-34.0); Mean Corpuscular Volume 88.6 fL (81.0-99.0); Platelet Count 117 10^3/uL (150-450); Red Blood Count 2.80 10^6/uL (4.20-5.40); White Blood Count 5.5 10^3/uL (4.0-11.0)
[2025-01-24 06:33] LABS: Alanine Aminotransferase 10 U/L (14-59); Albumin Globulin Ratio 0.5; Albumin Level 1.7 g/dL (3.4-5.0); Alkaline Phosphatase 120 U/L (46-116); Anion Gap 12.4; Aspartate Amino Transferase 63 U/L (15-37); Blood Urea Nitrogen 5.0 mg/dL (7.0-18.0); Calcium 7.9 mg/dL (8.5-10.1); Carbon Dioxide 24.6 mmol/L (21.0-32.0); Chloride 105 mmol/L (98-107); Estimated GFR (African America >60 (>=60 mL/min/1.73m^2); Estimated GFR (Non-African Ame >60 (>=60 mL/min/1.73m^2); Globulin 3.5 g/dL; Glucose 80 mg/dL (74-106); Magnesium 1.7 mg/dL (1.8-2.4); Potassium 3.0 mmol/L (3.5-5.1); Sodium 139 mmol/L (136-145); Total Protein 5.2 g/dL (6.4-8.2)
[2025-01-24] MEDS: PANTOPRAZOLE SODIUM 40 MG VIAL IV (08:25)
[2025-01-24] MEDS: ASPIRIN 325 MG TABLET PO (08:25)
[2025-01-24] MEDS: OXYCODONE HCL 5 MG TABLET PO ×2 (08:25→21:36)
[2025-01-24] MEDS: POTASSIUM CHLORIDE 10 MEQ ER TABLET 60 MEQ PO (08:26)
[2025-01-24] MEDS: FOLIC ACID 50 MG/10 ML VIAL IVP ×2 (08:59→21:32)
--- NOTE | 2025-01-24 09:31 | PM.PN ---
Progress Note: Subjective Subjective Interval history: Patient is feeling much better. Much more awake than on presentation. She reports having chronic pain. No chest pain or abdominal pain just extremities pain. No headaches, loss of conscious or seizure. No focal weakness or numbness. Patient is weak overall which is chronic. Nurse did not report any melena or bloody stool. Exam Narrative Exam Narrative: Patient is lying in bed. Much more awake and alert. Able to answer questions. Able to follow command. Able to lift up her upper extremities against resistance. Able to lift upper lower extremities against gravity but not resistance. Pale skin buccal mucosa. Chest is clear, heart is regular. Abdomen soft, nontender. Constitutional Vital Signs, click to edit/add: Last Vital Signs Temp 98.2 F 01/24/25 04:00 Pulse 112 H 01/24/25 07:30 Resp 19 01/24/25 07:30 BP 144/95 H 01/24/25 07:00 Pulse Ox 95 01/24/25 07:30 O2 Del Method Room Air 01/24/25 07:30 O2 Flow Rate 1 01/23/25 07:19 Progress Note: Objective Labs Labs: Short CBC 01/23/25 01/24/25 Range/Units 14:07 05:48 WBC 5.5 (4.0-11.0) 10^3/uL Hgb 8.2 L 7.7 L (12.0-16.0) g/dL Hct 25.9 L 24.8 L (36.0-48.0) % Plt Count 117 L (150-450) 10^3/uL BMP 01/24/25 05:48 Sodium 139 Potassium 3.0 L Chloride 105 Carbon Dioxide 24.6 BUN 5.0 L Creatinine 0.46 L Glucose 80 Calcium 7.9 L Liver Function 01/24/25 Range/Units 05:48 Total Bilirubin 0.7 (0.2-1.0) mg/dL AST 63 H (15-37) U/L ALT 10 L (14-59) U/L Alkaline Phosphatase 120 H (46-116) U/L Albumin 1.7 L (3.4-5.0) g/dL Progress Note: A&P Assessment and Plan (1) Severe sepsis: (2) Septic shock: (3) UTI (urinary tract infection): (4) ESBL (extended spectrum beta-lactamase) producing bacteria infection: (5) Encephalopathy: (6) Hypokalemia: (7) Hypomagnesemia: (8) Polypharmacy: (9) Elevated LFTs: (10) Fall: (11) COPD (chronic obstructive pulmonary disease): (12) Chronic hypoxic respiratory failure: (13) Acute hyponatremia: (14) Hypovolemia: (15) Volume depletion: (16) Avulsion fracture of right ankle: Qualifiers: Encounter type: initial encounter Fracture type: closed Qualified Code(s): S82.891A - Other fracture of right lower leg, initial encounter for closed fracture (17) Avulsion fracture of right calcaneus: Qualifiers: Calcaneus location: tuberosity Encounter type: initial encounter Fracture alignment: displaced Fracture type: closed Qualified Code(s): S92.031A - Displaced avulsion fracture of tuberosity of right calcaneus, initial encounter for closed fracture Plan Severe sepsis with septic shock present on admission, resolved. Off Levophed drip. Urinary tract infection. Gram-negative bacteria thus far. ESBL bacteremia, suspect urinary system as a source Patient had required aggressive intravenous fluid resuscitation and initiation of Levophed drip. She was started on Primaxin to cover ESBL. She had received 1 dose of vancomycin. Patient also had received albumin, midodrine and Solu-Cortef Her septic shock had resolved. Patient was weaned off Levophed drip. Continue to biotic pending final urine and blood report and sensitivity. Repeat blood culture in a.m. Pulmonary embolism. I started patient on Lovenox 1 mg/kg twice a day. Echocardiogram rule out cardiac strain. Convert to oral anticoagulation once her hemoglobin is stable Requested venous study of the legs rule out DVT. If extensive, consideration for thrombolysis. Anemia, no evidence of acute blood loss. Hemoglobin drop overnight which likely caused by aggressive IV fluid resuscitation Requested a stool Hemoccult. This came back positive. Nurse reported that her stool is not bloody or dark. No reported melena or bloody stool. Started the patient on PPI 1 unit of RBC transfusion today So far no evidence of active or massive blood loss Patient reports having a history of ulcerative colitis. Given the lack of any clinical evidence of massive GI blood loss and given her pulmonary embolism seen on CTA I would recommend to continue Lovenox therapeutic dose for PE. Convert to oral anticoagulation if her hemoglobin continues to be stable for 24 to 48 hours after transfusion. Patient will likely require to have anemia workup to be done in the outpatient setting to be handled by PCP in collaboration with other needed outpatient providers.This may include but not limited to EGD, colonoscopy, referral to see hematology and other needed age-appropriate cancer screening. Metabolic and septic encephalopathy. Significant and rapid resolution overnight. Patient is back to baseline state. Thrombocytopenia which is likely secondary to severe sepsis and septic shock Monitor platelets level while patient is on Lovenox. Functional disability. Patient has not been ambulatory since her ankle fracture a month and a half ago. [facility] Patient was discharged back home. stated that the patient is not ambulating. Repeat x-ray of the ankle to monitor healing. Hypokalemia and hypomagnesemia Additional potassium and magnesium supplementation. Phosphorus level is normal. Urinary retention Elaine catheter removal and trial of voiding. Elaine catheter was removed. Patient had more than 750 mL of urinary retention this morning. Elaine catheter was placed in I would recommend trial of Elaine removal and 2 weeks. I would recommend patient to follow-up with urology and [facility]. She may need to have a pelvic exam. She may need to have additional urological testing such as cystoscopy, urodynamic study and others. Intermittent SVT on the monitor. Likely caused by sepsis, septic shock, hypokalemia and hypomagnesemia Echocardiogram rule out cardiomyopathy or pulmonary embolism strain on the heart Additional potassium and magnesium supplementation. COPD with chronic hypoxic respiratory failure on [address] chest does not show any pneumatic infiltration or nodules. Recommend PFTs in the outpatient setting. Old right ankle fracture. Patient was seen last month by experimental psychologist who did not recommend any surgical intervention Continue partial weightbearing. I started patient on calcium supplementation. Requested vitamin D level. I suspect that she has osteoporosis. Recommend DEXA scan in the outpatient setting. Chronic medical conditions not listed above, incidental findings seen on labs and imaging. These would need to be addressed. Could be addressed when time and condition are appropriate. Could be addressed in the outpatient setting by PCP collaboration with other needed outpatient providers. Urinary Catheter Management Urinary Catheter Management Urethral: Cath placed during this visit: yes Urethral indwelling: No Insertion date: 01/24/25 Insertion time: 03:45
[2025-01-24] MEDS: ENOXAPARIN SODIUM 80 MG/0.8 ML SYRINGE SUBQ ×2 (10:42→22:25)
[2025-01-24] MEDS: METOPROLOL TARTRATE 25 MG TABLET PO ×2 (10:42→21:32)
[2025-01-24] MEDS: MAGNESIUM SULFATE/D5W 1 GM/100 ML PREMIX IV (10:42)
[2025-01-24 18:05] LABS: Hematocrit 28.3 % (36.0-48.0); Hemoglobin 9.3 g/dL (12.0-16.0)
[2025-01-24] MEDS: PREGABALIN 50 MG CAPSULE PO (21:32)
[2025-01-24] MEDS: CALCIUM CARBONATE 600 MG TABLET PO (21:32)
[2025-01-25] VITALS (12 sets, daily range): BP systolic 105–126; BP diastolic 73–90; PULSE 97–116; TEMP 36.4–37; O2SAT 90–93
[2025-01-25] MEDS: IMIPENEM/CILASTATIN SODIUM 1,000 MG in 0.9 % SODIUM CHLORIDE 250 ML 250 MG IV ×2 (02:00→10:11)
[2025-01-25] MEDS: PANTOPRAZOLE SODIUM 40 MG TABLET.DR PO (05:51)
[2025-01-25 05:54] LABS: Hematocrit 31.0 % (36.0-48.0); Hemoglobin 10.3 g/dL (12.0-16.0); Mean Corpuscular HGB Conc 33.2 g/dL (29.9-35.2); Mean Corpuscular Hemoglobin 28.3 pg (26.7-34.0); Mean Corpuscular Volume 85.2 fL (81.0-99.0); Platelet Count 139 10^3/uL (150-450); Red Blood Count 3.64 10^6/uL (4.20-5.40); White Blood Count 5.4 10^3/uL (4.0-11.0)
[2025-01-25 06:10] LABS: Alanine Aminotransferase 18 U/L (14-59); Albumin Globulin Ratio 0.5; Albumin Level 1.9 g/dL (3.4-5.0); Alkaline Phosphatase 152 U/L (46-116); Anion Gap 13.7; Aspartate Amino Transferase 62 U/L (15-37); Blood Urea Nitrogen 4.0 mg/dL (7.0-18.0); Calcium 8.3 mg/dL (8.5-10.1); Carbon Dioxide 26.3 mmol/L (21.0-32.0); Chloride 103 mmol/L (98-107); Estimated GFR (African America >60 (>=60 mL/min/1.73m^2); Estimated GFR (Non-African Ame >60 (>=60 mL/min/1.73m^2); Globulin 4.2 g/dL; Glucose 84 mg/dL (74-106); Magnesium 1.7 mg/dL (1.8-2.4); Potassium 3.0 mmol/L (3.5-5.1); Sodium 140 mmol/L (136-145); Total Protein 6.1 g/dL (6.4-8.2)
[2025-01-25] MEDS: OXYCODONE HCL 5 MG TABLET PO ×2 (07:08→15:47)
[2025-01-25] MEDS: DIPHENOXYLATE HCL 2.5 MG/ATROPINE 0.025 MG TABLET 1 TAB PO (07:08)
[2025-01-25] MEDS: METOPROLOL TARTRATE 25 MG TABLET PO (08:02)
[2025-01-25] MEDS: PREGABALIN 50 MG CAPSULE PO (08:02)
[2025-01-25] MEDS: CALCIUM CARBONATE 600 MG TABLET PO (08:03)
[2025-01-25] MEDS: ALPRAZOLAM 0.5 MG TABLET PO (08:03)
[2025-01-25] MEDS: FOLIC ACID 1 MG TABLET PO (08:04)
[2025-01-25] MEDS: ASPIRIN 81 MG TAB.CHEW PO (08:04)
--- NOTE | 2025-01-25 09:30 | CM.NOTE ---
Rounds made with Dr. Bettencourt, plan of care reviewed with pt. Pt will get cardiac echo today and awaiting final cultures. No discharge today.
[2025-01-25] MEDS: MAGNESIUM SULFATE IN WATER 2 GM/50 ML PREMIX IV (10:12)
[2025-01-25] MEDS: MAGNESIUM OXIDE 400 MG TABLET PO (10:12)
[2025-01-25] MEDS: SULFUR HEXAFLUORIDE MICROSPHR 25 MG/5 ML VIAL IV (11:27)
--- NOTE | 2025-01-25 11:42 | CA_ITS ---
Patient Name: RASHID BOOTH MR#: [id number] : 1970 Exam Date: 01/25/2025 Ordering Doctor: JARROD MUÑOZ ECHOCARDIOGRAM REPORT PROCEDURE: CA ECHO W/ CON INDICATIONS: Pulmonary embolism, rule out cardiac strain COMPARISON: None. DESCRIPTION: COMPLETE ECHOCARDIOGRAM Real-time transthoracic echocardiography with 2D, M-mode, spectral and color flow Doppler performed. QUALITY: Lumason contrast was administered due to suboptimal imaging for left ventricular opacification to improve delineation of endocardial boarders. LEFT VENTRICLE: Normal chamber size. Moderate concentric left ventricular hypertrophy. LV EF: Global left ventricular systolic function is moderately reduced; visually estimated ejection fraction is 30 to 35%. The distal two thirds of the septum, the apex, and the distal third of the anterolateral santos are severely hypokinetic. Cannot rule out apical thrombus. DIASTOLIC: Diastolic function cannot be assessed. ATRIAL SEPTUM: Inadequately seen. LEFT ATRIUM: Mild dilatation. RIGHT ATRIUM: Mild dilatation. RIGHT VENTRICLE: Normal chamber size. Normal right ventricular systolic function. TRICUSPID VALVE: Normal mobility and thickness. Mild regurgitation. No evidence of pulmonary hypertension. RVSP 31mmHg. MITRAL VALVE: Normal mobility and thickness. Color Doppler was not provided over the mitral valve. AORTIC VALVE: Normal trileaflet appearance. Thickened aortic valve. Trivial aortic valve regurgitation. AORTIC ROOT: Normal diameter and appearance. The ascending aorta is mildly dilated measuring 4.0cm. PULMONIC VALVE: Normal thickness and mobility. Mild pulmonic regurgitation PERICARDIUM: Anterior free space; trivial effusion versus fat pad. IVC: Collapses with inspiration. Normal size. CONCLUSION: 1. Global left ventricular systolic function is moderately reduced; visually estimated ejection fraction is 30 to 35% 2. Significant segmental wall motion abnormalities 3. Cannot rule out apical thrombus 4. Right ventricle is normal in size and systolic function 5. Biatrial dilatation 6. Mild tricuspid regurgitation 7. The ascending aorta is mildly dilated measuring 4.0 cm 8. Inadequate evaluation of valvular abnormalities 9. Anterior free space; trivial effusion versus fat pad Adult Echocardiography Procedure Report Left Ventricle LVEDD (3.7 - 5.6 cm): 4.10 cm LVESD (2.2 - 4.0 cm): 2.90 cm LVIVS thickness (0.6 - 1.2 cm): 1.67 cm LVPW thickness (0.5 - 1.0 cm): 1.42 cm LVOT Diameter 2.21 cm Left Ventricular Ejection Fraction: 36.57 % Left Atrium LA Volume Index (2D A2C): 37.10 ml/m2 Left Atrium Systolic Dimension: 2.75 cm Mitral Valve Right Ventricle RV Internal Diastolic Dimension: 3.24 cm Aorta AO Root Diam: 3.53 cm Ascending Ao Diam: 4.02 cm Aortic Valve Tricuspid Valve Peak Velocity (Regurgitant Flow): 2.31 m/s, 2.27 m/s, 2.29 m/s, 2.65 m/s, 2.32 m/s, 2.32 m/s, 2.30 m/s Pulmonic Valve Right Atrium Right Atrium Systolic Pressure: 17.73 ml, 17.73 ml Dictated by: Porsche eSllers M.D. on 01/25/2025 at 11:37 Approved by: Porsche Sellers M.D. on 01/25/2025 at 11:45
[2025-01-25] MEDS: POTASSIUM CHLORIDE 10 MEQ ER TABLET 40 MEQ PO (12:25)
[2025-01-25 13:07] LABS: Vitamin B12 754 pg/mL (232-1245)
--- NOTE | 2025-01-25 14:02 | SWNOTE1 ---
SW did receive a voicemail from pt's in regards to discharge planning. He spoke about pt being at rehab at [facility] for 3 weeks and then discharged home. He voiced he feels she will need something like this again as she is not able to get around at home. SW to call pt's back. Plan is for pt to be transferred to higher level of care.
--- NOTE | 2025-01-25 14:09 | SWNOTE1 ---
CEDRICK called pt's Trev. CEDRICK spoke with him about plan of transfer to [facility]. He voiced he was aware and spoke to the nurse on med/surge. SW did let him know there will be someone at [facility] that will assist with discharge planning once pt is feeling better. He voiced understanding and he had no further questions at this time.
--- NOTE | 2025-01-26 10:35 | PM.DS1 ---
DS: Providers Provider Date of admission: 01/22/25 14:42 Primary care physician: Kymberly Gilmore MD Consults: 01/23/25 10:53 Occupational Therapy Eval and Treat Routine Reason for consultation: Weakness Physical Therapy Eval and Treat Routine Reason for consultation: Ministerio Discharging clinician: NATALIE GENAO DS: Diagnosis Discharge Diagnosis (1) Severe sepsis: (2) Septic shock: (3) UTI (urinary tract infection): (4) ESBL (extended spectrum beta-lactamase) producing bacteria infection: (5) Encephalopathy: (6) Hypokalemia: (7) Hypomagnesemia: (8) Polypharmacy: (9) Elevated LFTs: (10) Fall: (11) COPD (chronic obstructive pulmonary disease): (12) Chronic hypoxic respiratory failure: (13) Acute hyponatremia: (14) Hypovolemia: (15) Volume depletion: (16) Avulsion fracture of right ankle: Qualifiers: Encounter type: initial encounter Fracture type: closed Qualified Code(s): S82.891A - Other fracture of right lower leg, initial encounter for closed fracture (17) Avulsion fracture of right calcaneus: Qualifiers: Encounter type: initial encounter Calcaneus location: tuberosity Fracture type: closed Fracture alignment: displaced Qualified Code(s): S92.031A - Displaced avulsion fracture of tuberosity of right calcaneus, initial encounter for closed fracture (18) DVT, bilateral lower limbs: (19) Apical mural thrombus without MD: DS: Summary Hospital Course Hospital Course: Miss Frazier is a 54-year-old female who was admitted to the hospital the afternoon of January 23 with a chief complaint of altered Wendall status, hypotension. She was found to have sepsis secondary to urinary tract infection. She was initially started on norepinephrine infusion which was able to be to be titrated down after adequate fluid resuscitation and antibiotic administration with timely manner. She did have a CTA of the chest performed emergency room which showed a chronic pulmonary embolism in her right pulmonary artery. She was subsequently started on Lovenox therapeutic dose and echocardiogram was ordered. The patient has a history of gastric ulcers and when she realized she was on a blood thinner she was adamantly against this. She did not want to have any further risk of bleeding given what she is been doing the past. I did have a very long discussion with her about the the likely need for anticoagulation going forward. Echocardiogram was ordered to rule out myocardial strain secondary to the PE, the report read that it was unable to rule out apical thrombus. At this point, I did reach out to [facility] in [place], she the patient will require an upper and lower scope to rule out any evidence of GI bleeding and also a MYNOR to confirm the apical thrombus and she will likely be committed to a DOAC after that if she is able to tolerate it. She did receive 1 unit of PRBC while she was here, FOBT was positive for blood on admission though there is no evidence of any bright red blood or large bleeds. She was sent transferred to [facility] the afternoon of January 25. Time Spent with Patient Time attestation: Total time spent providing and/or coordinating discharge services: Exam Narrative Exam Narrative: General: Awake and alert, no acute distress HEENT: Normocephalic, atraumatic, no scleral icterus noted Lungs: Clear to auscultation bilaterally Cardiac: Regular rate and rhythm, no murmurs appreciated GI: Soft, nontender, regular bowel sounds. Extremities: Active and passive range of motion intact throughout, no edema Neuro: Cranial nerves II through XII intact, no focal deficits noted Skin: No rashes or lesions, no signs of jaundice Constitutional Vital Signs, click to edit/add: Last Vital Signs Temp 97.6 F 01/25/25 11:28 Pulse 102 H 01/25/25 13:59 Resp 18 01/25/25 11:28 BP 105/73 01/25/25 11:28 Pulse Ox 90 L 01/25/25 11:28 O2 Del Method Room Air 01/25/25 15:27 O2 Flow Rate 1 01/23/25 07:19 DS: Data Data Completed and Pending Labs on day of discharge: Labs from last 24 hours 01/25/25 01/23/25 05:26 14:07 Vitamin B12 754 25-OH Vitamin D Total 26.7 L Preliminary micro results at discharge 01/22/25 11:03 Aerobic Susc Result 2 - Preliminary Bld Spc Aerobic Bld [place] Gram negative bree 01/22/25 11:03 Aerobic Susc Result 2 - Preliminary Blood - Right Antecubital Gram negative bree Anaerobe Identification - Preliminary 01/22/25 11:18 Aerobic Susc Result 2 - Preliminary Blood - Left Antecubital Gram negative bree Anaerobe Identification - Preliminary 01/22/25 11:18 Blood Culture Result 1 - Preliminary Blood - Left Antecubital 01/22/25 11:03 Blood Culture Result 2 - Preliminary Blood - Right Antecubital Discharge Plan Discharge Disposition: [facility] Discharge Date/Time: 01/25/25 16:11
== END 2025-01-25 16:11 | disposition short-term general hospital (02) | DRG 871 ==
LOC: ER 13:40 → MS 14:45
PROVIDERS: Admitting Provider Internal Medicine; Emergency Provider Emergency Medicine; PCP Family Medicine; Visit Provider Internal Medicine
DX: A41.51 Sepsis due to Escherichia coli [E. coli] (principal); G93.41 Metabolic encephalopathy; R65.21 Severe sepsis with septic shock; N39.0 Urinary tract infection, site not specified; I27.82 Chronic pulmonary embolism; Z16.12 Extended spectrum beta lactamase (ESBL) resistance; J96.11 Chronic respiratory failure with hypoxia; E87.1 Hypo-osmolality and hyponatremia; I47.19 Other supraventricular tachycardia; I82.4Z3 Acute embolism and thrombosis of unspecified deep veins of distal lower extremity, bilateral; E83.42 Hypomagnesemia; I10 Essential (primary) hypertension; G62.9 Polyneuropathy, unspecified; I48.91 Unspecified atrial fibrillation; I71.9 Aortic aneurysm of unspecified site, without rupture; Z90.710 Acquired absence of both cervix and uterus; Z98.84 Bariatric surgery status; Z87.891 Personal history of nicotine dependence; Z79.82 Long term (current) use of aspirin; Z79.899 Other long term (current) drug therapy; E87.6 Hypokalemia; D64.9 Anemia, unspecified; D69.6 Thrombocytopenia, unspecified; S82.891D Other fracture of right lower leg, subsequent encounter for closed fracture with routine healing; Z74.01 Bed confinement status; J44.9 Chronic obstructive pulmonary disease, unspecified; R79.89 Other specified abnormal findings of blood chemistry; E86.1 Hypovolemia; R19.5 Other fecal abnormalities; Z87.19 Personal history of other diseases of the digestive system; R33.9 Retention of urine, unspecified; W19.XXXD Unspecified fall, subsequent encounter; I51.3 Intracardiac thrombosis, not elsewhere classified
CPT/HCPCS: 36415; 36430; 36600; 51702; 51798; 70450; 71045; 71275; 73610; 80053; 80307; 81001; 82306; 82607; 82728; 82746; 82805; 83540; 83550; 83605; 83735; 84100; 84484; 85014; 85018; 85025; 85027; 85610; 86850; 86900; 86901; 86923; 87040; 87077; 87086; 87088; 87150; 87186; 93005; 93970; 94761; 96361; 96365; 96367; 96372; 97163; 97165; 99285; C8929; G0328; J0743; J1650; J1720; J2405; J2543; J3373; J3475; P9016; P9046; Q9950; Q9967

== ENCOUNTER 2025-02-17 16:31 | Emergency (ER) | payer BC, MEDICARE, SELFPAY ==
--- OUTSIDE RECORDS SUMMARY | 2024-06-11 07:40 | XMS_ITS ---
Author Organization [facility] Address [address] [place] [address] Care Team Providers Care [employer] Worker Name Role Phone Kymberly Gilmore M.D. Primary Care Provider Unavail able Jovana Holloway Unavailable [phone] Cat BURKETT, Andrius Unavailable Unavailab le REASON FOR VISIT L4-5 REVISION DECOMPRESSION WITH FUSION, 04/21/24, IOS Encounters Encounter Location Date Provider Diagnosis [facility] [address] [place] [address] [place] [address] 06/11/2024 Jovana Holloway Plan Of Treatment No Information Progress Notes * RASHID BOOTHDOB:[birth year] (54 yo F)Acc No.[id number]:06/11/2024 Progress Notes Patient: Jaimee FLORESRASHID JIMENEZ Provider: Tom Guardado MD, PhD :1970 A ge:53 Y S ex:Female Date:06/11/2024 Address:[address] , [id number] Pcp:Kymberly Gilmore M.D. Subjective: * Chief Complaints: * 1 . L4-5 REVISION DECOMPRESSION WITH FUSION, 04/21/24, IOS. * Medical History: Objective: * Vitals: Assessment: Plan: * Treatment: Forms: * Images: * Electronic signature of Camryn Holloway MD, PHD on 02/17/2025 at 05:41 PM EDT Sign off status: Pending * Provider: Tom Guardado MD, PhD Date: 0 06/11/2024 Generated for Jay baron/Devorah/Marva on: 0 02/17/2025 05:41 PM EDT
--- OUTSIDE RECORDS SUMMARY | 2024-07-30 07:30 | XMS_ITS ---
Author Organization [facility] Address [address] [place] [address] Care Team Providers Care Home Care Assistant Name Role Phone Kymberly Gilmore M.D. Primary Care Provider Unavail able Jewel, Shalalorri Unavailable [phone] Cat BURKETT, Andri Unavailable Unavailab le REASON [...] Active Encounters Encounter Location Date Provider Diagnosis [facility] Office [address] [place] [address] [place] [address] 07/30/2024 Shalalorri Jewel Aftercare following surgery of the musculoskeletal system Z47.89 Assessments Encounter Date Diagnosis (ICD Code) Assessment Notes Treatment Notes Treatment Clinical Notes Section Notes 07/30/2024 Aftercare following surgery of the musculoskeletal system (ICD-10 - Z47.89) Plan Of Treatment Pending Test Test Name Order Date Lumbar spine 2v ap and lat - [id number] 07/30 Progress Notes * RASHID BOOTHDOB:[birth year] (54 yo F)Acc No.[id number]:07/30/2024 Progress Notes Patient: RASHID LOUIS Provider: Tom Guardado MD, PhD :1970 A ge:53 Y S ex:Female Date:07/30/2024 Address:[address] , [id number] Pcp:Kymberly Gilmore M.D. Subjective: * Chief Complaints: [...] Camryn Holloway MD, PHD on 02/17/2025 at 05:42 PM EDT Sign off status: Pending * Provider: Tom Guardado MD, PhD Date: 07/30/2024 Generated for Jay baron/Devorah/eTroxysmitting on: 0 02/17/2025 05:42 PM EDT
--- OUTSIDE RECORDS SUMMARY | 2024-12-16 09:30 | XMS_ITS ---
Author Organization [facility] Address [address] [address], [place] [address] Care Team Providers Care Machine Stripper Name Role Phone Mando BURKETT, Kymberly Primary Care Provider Unavailab Black Varma Unavailable [phone] REASON FOR VISIT Right Ankle Pain Encounters Encounter Location Date Provider Diagnosis [facility], [facility] [address] [address], [place] [address] 12/16/2024 Black Weeks Plan Of Treatment No Information Progress Notes * Candy BOOTHDOB:[birth year] (54 yo F)Acc No.[id number]:12/16/2024 New Patient Patient: Jaimee restrepo Candy Acuña Provider: Jasmina Weeks DPM :1970 A ge:54 Y S ex:Female Date:12/16/2024 Address:[address] , [id number] Pcp:Kymberly Gilmore MD Subjective: * Chief Complaints: * R ight Ankle Pain Billing Information: * Procedure Codes: * Electronic signature of Paras Weeks DPM MS on 02/17/2025 at 05:41 PM EDT Sign off status: Pending * Provider: Jasmina Weeks DPM Date: 12/16/2024 Generated for Jay baron/Devorah/eTransmitting on: 02/17/2025 05:41 PM EDT
[2025-02-17] VITALS (25 sets, daily range): BP systolic 69–104; BP diastolic 47–88; PULSE 95–123; TEMP 36.6–37.8; O2SAT 90–98; BMI 34.5
[2025-02-17] MEDS: 0.9 % SODIUM CHLORIDE 1,000 ML 1000 ML IV ×3 (16:31→18:44)
--- NOTE | 2025-02-17 16:32 | ECG_ITS ---
[facility] Test Date: 2025-02-17 Pat Name: RASHID BOOTH Department: Room: - Gender: Female Frame Feeder: : 1970 Requested By: MAUREEN MITCHELL Order Number: [id number] Rylee MD: PARIS SALINAS M.D. Measurements Intervals [place] Rate: 122 P: 30 AL: 204 QRS: 55 QRSD: 92 T: 200 QT: 348 QTc: 421 Interpretive Statements Supraventricular tachycardia, possible atrial flutter [address] depression 4364 Twave abnormality, possible anterolateral ischemia 4664 Twave abnormality, possible inferior ischemia 6230 Left atrial enlargement 9150 abnormal ECG Compared to ECG 01/22/2025 10:41:01 Atrial abnormality now present ST (T wave) deviation still present Possible ischemia still present Electronically Signed On 02-18-2025 7:45:10 EDT by PARIS SALINAS M.D.
--- NOTE | 2025-02-17 16:32 | XR_ITS ---
The [address] [address] Patient Name: RASHID BOOTH MRN: [id number] date: 1970 Sex: F Assigned Patient Location: ED.MAIN Current Patient Location: ED.MAIN Accession/Order Number: [id number] Exam Date: 02/17/2025 17:10 Report Date: 02/17/2025 17:40 At the request of: NBA OLIVIA MD Procedure: XR chest 1V Single frontal view chest INDICATION: Weakness/fever COMPARISON: 01/22/2025 Unremarkable cardiac silhouette. Lungs clear. No effusion or pneumothorax. XR/XR chest 1V IMPRESSION: Negative acute pleural-parenchymal disease. Impression dictated by: Eduard Crawley M.D. 02/17/2025 5:40 PM Dictation Location: [place] [address] Electronically authenticated by: [id number] Y Date: 02/17/2025 17:40
--- NOTE | 2025-02-17 16:33 | ED.GENADUL1 ---
HPI HPI - General Adult General Chief complaint: Weakness Stated complaint: UTI Time Seen by Provider: 02/17/25 16:32 History of Present Illness HPI narrative: 54-year-old female presented to the emergency department for feeling weak and having a fever. She states this started yesterday. She has an indwelling Elaine catheter was admitted to another hospital few weeks ago for UTI. She has been having some diarrhea once a day. No blood in her stool. Is not complaining of cough or chest pain or abdominal pain. Related Data Home Medications ?Medication ?Instructions ?Recorded ?Confirmed amitriptyline 75 mg tablet 75 mg PO .QHS 01/22/25 02/17/25 docusate sodium 100 mg capsule 100 mg PO DAILY PRN constipation 01/22/25 01/22/25 (Col-Rite) oxycodone 10 mg tablet 10 mg PO Q6H PRN pain 01/22/25 01/22/25 potassium chloride 20 mEq 20 meq PO DAILY 01/22/25 02/17/25 tablet,extended release(part/cryst) pregabalin 50 mg capsule 50 mg PO Q8H 01/22/25 01/22/25 sodium chloride 1 gram tablet 1,000 mg PO TID 01/22/25 01/22/25 carvedilol 3.125 mg tablet mg 02/17/25 enoxaparin 40 mg/0.4 mL mg 02/17/25 subcutaneous syringe oxycodone 20 mg tablet 10 mg 02/17/25 pantoprazole 40 mg tablet,delayed mg PO 02/17/25 release spironolactone 25 mg tablet mg 02/17/25 valsartan 40 mg tablet mg 02/17/25 Previous Rx's ?Medication ?Instructions ?Recorded acetaminophen 325 mg tablet 650 mg (2 x 325 mg) PO Q6H PRN 12/06/24 (Tylenol) Pain/FEVER #0 tabs albuterol sulfate 2.5 mg/3 mL 2.5 mg (3 mL) inhalation Q6H PRN 12/06/24 (0.083 %) solution for nebulization SHORTNESS OF BREATH/WHEEZING #0 mL alprazolam 0.5 mg tablet 0.5 mg PO BID PRN anxiety 5 days 12/06/24 #10 tabs aspirin 325 mg tablet 325 mg PO DAILY #30 tabs 12/06/24 ipratropium 0.5 mg-albuterol 3 mg 3 ml inhalation RTBID #0 mL 12/06/24 (2.5 mg base)/3 mL nebulization soln metoprolol tartrate 25 mg tablet 25 mg PO BID #0 tabs 12/06/24 trazodone 50 mg tablet 50 mg PO HS #30 tabs 12/06/24 Allergies Allergy/AdvReac Type Severity Reaction Status Date / Time NSAIDS (Non-Steroidal AdvReac Intermediate Gastrointestinal Verified 02/17/25 16:44 Anti-Inflamma Upset Opioid HPI Opioid Management Most Recent Opioid Data: Last Pain Scale 5 Today, 16:44 Last MAR Pain Assessment Today, 17:06 Last ORT Total Score 0 11/30/24, 21:41 Last ORT Risk Category Low Risk 11/30/24, 21:41 Ur Phencyclidine Scrn, (NEGATIVE) Negative 01/22/25, 23:16 Review of Systems ROS Narrative A ten point review of systems is negative except as noted above. [facility] Medical History (Updated 02/17/25 @ 18:42 by Harry Oscar MD) ESBL (extended spectrum beta-lactamase) producing bacteria infection ?A49.9 - Bacterial infection, unspecified (ICD-10) ?Z16.12 - Extended spectrum beta lactamase (ESBL) resistance (ICD-10) Chronic pulmonary embolism ?I27.82 - Chronic pulmonary embolism (ICD-10) Chronic hypoxic respiratory failure ?J96.11 - Chronic respiratory failure with hypoxia (ICD-10) COPD (chronic obstructive pulmonary disease) ?J44.9 - Chronic obstructive pulmonary disease, unspecified (ICD-10) Polypharmacy ?Z79.899 - Other prison (current) drug therapy (ICD-10) Fall ?W19.XXXA - Unspecified fall, initial encounter (ICD-10) Elevated LFTs ?R79.89 - Other specified abnormal findings of blood chemistry (ICD-10) HTN (hypertension) ?I10 - Essential (primary) hypertension (ICD-10) Thickening of wall of gallbladder ?K82.8 - Other specified diseases of gallbladder (ICD-10) Syncope ?R55 - Syncope and collapse (ICD-10) Peripheral neuropathy ?G62.9 - Polyneuropathy, unspecified (ICD-10) Chronic bilateral back pain ?M54.9 - Dorsalgia, unspecified (ICD-10) ?G89.29 - Other chronic pain (ICD-10) Afib ?I48.91 - Unspecified atrial fibrillation (ICD-10) Aortic aneurysm ?I71.9 - Aortic aneurysm of unspecified site, without rupture (ICD-10) GI bleed ?K92.2 - Gastrointestinal hemorrhage, unspecified (ICD-10) Surgical History Previous back surgery ?Z98.890 - Other specified postprocedural states (ICD-10) Status post abdominoplasty ?Z98.890 - Other specified postprocedural states (ICD-10) Status post abdominoplasty ?Z98.890 - Other specified postprocedural states (ICD-10) H/O hysterectomy with oophorectomy H/O: hysterectomy ?Z90.710 - Acquired absence of both cervix and uterus (ICD-10) Gastric bypass status for obesity ?Z98.84 - Bariatric surgery status (ICD-10) Family History Mother Family history of cancer Family history of hypertension Social History (Updated 11/30/24 @ 21:55 by Kat Escobedo RN) Within the past year, how often did you have a drink containing alcohol: 2-4 times a month Within the past year, how often did you have six or more drinks on one occasion: never Smoking status: Former smoker Non-prescribed substance use: denies use Previous occupational history: disabled Known occupational exposures/hazards: No Highest level of school completed/degree received: don't know Are you now , , , , never or living with a partner: In a typical week, how many times do you talk on the telephone with family, friends, or neighbors: 3 or more times per week Little interest or pleasure in doing things: not at all Feeling down, depressed, or hopeless: not at all Feel stressed/tense/nervous/anxious/difficulty sleeping: rather much Life stressor details: medical condition Exam Narrative Exam Narrative: Nurses note and vital signs reviewed and patient is not hypoxic. General:The patient cute respiratory distress. She appears weak. Skin:Warm, dry, no pallor noted.There is no rash noted. Head:Normocephalic, atraumatic Eye: Normal conjunctiva, no drainage Ears, Nose, Mouth, and Throat: oral mucosa is lightly dry. Nares patent. Cardiovascular:Regular Rate and Rhythm Respiratory:Patient is in no distress, no accessory muscle use, lungs are clear to auscultation, no wheezing, rales or rhonchi Back:non-tender GI: Nontender. Elaine catheter is present and draining urine Musculoskeletal: The patient has no evidence of calf tenderness, symmetrical pulses noted bilaterally Neurological:A&O x4, normal speech Psychiatric:Cooperative Constitutional Vital Signs, click to edit/add: Last Vital Signs Temp 98.6 F 02/17/25 18:15 Pulse 101 H 02/17/25 18:40 Resp 14 02/17/25 18:40 BP 76/52 L 02/17/25 18:40 Pulse Ox 98 02/17/25 18:40 O2 Del Method Room Air 02/17/25 16:44 Course Vital Signs Vital signs: Vital Signs Pulse Oximetry 91 L 02/17/25 16:34 Temperature 98.6 F 02/17/25 18:15 Pulse Rate 101 H 02/17/25 18:40 Respiratory Rate 14 02/17/25 18:40 Blood Pressure 76/52 L 02/17/25 18:40 Pulse Oximetry 98 02/17/25 18:40 Oxygen Delivery Method Room Air 02/17/25 16:44 Medical Decision Making [facility] Narrative Medical decision making narrative: Patient presented with hypotension. She was given IV fluids and has been ordered a third liter of IV fluids. BC is normal at 9.9 and her lactic acid is normal as well; the BUN is 7 and creatinine 0.56. Urinalysis shows what appears to be UTI but she has an indwelling Elaine catheter. X-rays negative. The patient was ordered IV Rocephin, 2 g. The patient signed out to Dr. Frank at change of shift. Opponent is also pending. Lab Data Lab results reviewed: Yes I reviewed the patient's lab results Labs: Lab Results 02/17/25 02/17/25 02/17/25 Range/Units 16:57 17:01 18:10 WBC 9.9 (4.0-11.0) 10^3/uL RBC 3.41 L (4.20-5.40) 10^6/uL Hgb 9.5 L (12.0-16.0) g/dL Hct 28.5 L (36.0-48.0) % MCV 83.6 (81.0-99.0) fL MCH 27.9 (26.7-34.0) pg MCHC 33.3 (29.9-35.2) g/dL RDW 20.4 H (11.0-15.0) % Plt Count 215 (150-450) 10^3/uL MPV 9.3 L (9.5-13.5) fL Neut % (Auto) 78.1 H (43.0-75.0) % Lymph % (Auto) 12.4 L (20.5-60.0) % [place] % (Auto) 8.5 (1.7-12.0) % Eos % (Auto) 0.1 L (0.9-7.0) % Baso % (Auto) 0.3 (0.2-2.0) % Neut # (Auto) 7.7 H (1.4-6.5) 10^3/uL Lymph # (Auto) 1.2 (1.2-3.8) 10^3/uL [place] # (Auto) 0.8 (0.3-0.8) 10^3/uL Eos # (Auto) 0.0 (0.0-0.7) 10^3/uL Baso # (Auto) 0.0 (0.0-0.1) 10^3/uL Abs Immat Gran (auto) 0.06 H (0.00-0.03) 10^3/uL Imm/Tot Granulo (auto) 0.6 H (0.0-0.5) % Sodium 135 L (136-145) mmol/L Potassium 3.5 (3.5-5.1) mmol/L Chloride 103 (98-107) mmol/L Carbon Dioxide 22.8 (21.0-32.0) mmol/L Anion Gap 12.7 BUN 7.0 (7.0-18.0) mg/dL Creatinine 0.56 (0.55-1.02) mg/dL Est GFR ( Amer) >60 (>=60 mL/min/1.73m^2) Est GFR (Non-Af Amer) >60 (>=60 mL/min/1.73m^2) BUN/Creatinine Ratio 12.5 Glucose 107 H (74-106) mg/dL Lactate 0.8 (0.4-2.0) mmol/L Calcium 8.2 L (8.5-10.1) mg/dL Urine Color Yellow (YELLOW) Urine Clarity Sl cloudy (CLEAR) Urine pH 6.0 (5.0-9.0) Ur Specific [place] 1.010 (1.005-1.025) Urine Protein 100 A (NEG/TRACE) mg/dL Urine Glucose (UA) Negative (NEGATIVE) mg/dL Urine Ketones Trace A (NEGATIVE) mg/dL Urine Occult Blood Small A (NEGATIVE) Urine Nitrite Positive A (NEGATIVE) Urine Bilirubin Small A (NEGATIVE) Urine Urobilinogen 4.0 A (0.2-1.0) EU/dL Ur Leukocyte Esterase Large A (NEGATIVE) Urine RBC 5-10 A (0-2) #/HPF Urine WBC 50-75 A (NONE SEEN) #/HPF Ur Squamous Epith Cells Rare (NONE/RARE) #/LPF Urine Crystals None seen (None Seen) #/HPF Urine Bacteria Moderate A (NONE SEEN) #/HPF Urine Casts None seen (NONE SEEN) #/LPF Urine Mucus None seen (NONE SEEN) Ur Culture Indicated? Yes-[facility] [place] Influenza Type A Ag Negative Influenza Type B Ag Negative SARS-CoV-2 Ag (CV2AG) Negative (NEGATIVE) Imaging Data Chest x-ray: Radiologist's impression: ITS Impressions Chest X-Ray 02/17/25 16:32 IMPRESSION: Negative acute pleural-parenchymal disease. Impression dictated by: Eduard Crawley M.D. 02/17/2025 5:40 PM Dictation Location: [place] [address] Electronically authenticated by: [id number] Y Date: 02/17/2025 17:40 ECG Data Attestation: I personally reviewed and interpreted this ECG as follows: (GMI interpretation shows sinus tachycardia with rate of [address] depression laterally) Critical Care Time Critical Care Time Critical Care Time: Yes Total Critical Care Time: 45 Attestation: Due to the high probability of sudden and clinically significant deterioration in the patient's condition he/she required the highest level of my preparedness to intervene urgently I provided critical care time including documentation time, medication orders and management, reevaluation, vital sign assessment, ordering and reviewing of lab tests, ordering and reviewing of x-ray studies, and admission orders. Aggregate critical care time is 45 minutes including only time during which I was engaged in work directly related to his/her care and did not include time spent treating other patients simultaneously. Discharge Plan Discharge Patient Disposition: Still a Patient
[2025-02-17] MEDS: ACETAMINOPHEN 325 MG TABLET 650 MG PO (17:06)
[2025-02-17 17:10] LABS: Hematocrit 28.5 % (36.0-48.0); Hemoglobin 9.5 g/dL (12.0-16.0); Immature Granulocytes Abs Auto 0.06 10^3/uL (0.00-0.03); Immature Granulocytes Pct Auto 0.6 % (0.0-0.5); Lymphocytes Absolute Auto 1.2 10^3/uL (1.2-3.8); Mean Corpuscular HGB Conc 33.3 g/dL (29.9-35.2); Mean Corpuscular Hemoglobin 27.9 pg (26.7-34.0); Mean Corpuscular Volume 83.6 fL (81.0-99.0); Platelet Count 215 10^3/uL (150-450); Red Blood Count 3.41 10^6/uL (4.20-5.40); White Blood Count 9.9 10^3/uL (4.0-11.0)
[2025-02-17 17:19] LABS: Anion Gap 12.7; Blood Urea Nitrogen 7.0 mg/dL (7.0-18.0); Calcium 8.2 mg/dL (8.5-10.1); Carbon Dioxide 22.8 mmol/L (21.0-32.0); Chloride 103 mmol/L (98-107); Estimated GFR (African America >60 (>=60 mL/min/1.73m^2); Estimated GFR (Non-African Ame >60 (>=60 mL/min/1.73m^2); Glucose 107 mg/dL (74-106); Potassium 3.5 mmol/L (3.5-5.1); Sodium 135 mmol/L (136-145)
[2025-02-17 17:21] LABS: SARS-CoV-2 Ag NEGATIVE (NEGATIVE)
[2025-02-17 17:27] LABS: Lactate/Lactic Acid 0.8 mmol/L (0.4-2.0)
--- OUTSIDE RECORDS SUMMARY | 2025-02-17 17:41 | XMS_ITS | Encounter Summary ---
Author Organization [facility] Address [address] [place] [address] Phone Care Team Providers Care Humanities Coordinator Name Role Phone Kymberly Gilmore MD Primary Care Provider [phone] Yossi Hunter MD Unavailable [phone] Encounter Details Date Type Department Care Team (Late st Contact Info) Description 01/31/2025 Scanned Document [facility] [address] [place] [address] Scanning, Generic Provider Social History Tobacco Use Types Packs/Day Years Used Date Smoking Tobacco: Former Cigarettes Q uit: 2021 Smokeless Tobacco: Never Alcohol Use Standard Drinks/Week Comments Yes 0 (1 standard drink = 0.6 oz pur e alcohol) rarely, 1x a ,month or less Comments Unknown Sex and Gender Information Value Date Recorded Sex Assigned at Not on file Legal Sex Female 3:22 AM EST Gender Identity Not on file Sexual Orientation Not on file documented as of this encounter Plan of Treatment Upcoming Encounters Date Type Department Care Team (Late st Contact Info) Description 03/15/2025 1:20 PM EDT Office Visit [facility] [address] [facility] [address] [place] [address] Tatyana Ohara MD [address] [facility] [address] [place] [address] documented as of this encounter Visit Diagnoses Not on filedocumented in this encounter Care Teams Humanities Coordinator Relationship Specialty Start Date End Date Kymberly Gilmore MD [address] [place] [address] PCP - General Family Medicine 05/27/23 Yossi Hunter MD [address] [facility] [address] [facility] [address], [facility] [address] [place], [place] [id number] Vacuum Tester Cans Cardiology 06/17/23 documented as of this encounter
--- OUTSIDE RECORDS SUMMARY | 2025-02-17 17:41 | XMS_ITS | Encounter Summary ---
Author Organization [facility] Address [address] [place] [address] Phone Care Team Providers Care Children'S Zoo Caretaker Name Role Phone Kymberly Gilmore MD Primary Care Provider [phone] Yossi Hunter MD Unavailable [phone] Encounter Details Date Type Department Care Team (Late st Contact Info) Description 02/01/2025 Scanned Document [facility] [address] [place] [address] Scanning, Generic Provider Social History Tobacco Use [...] Description 03/15/2025 1:20 PM EDT Office Visit [facility] [address] [facility] [address] [place] [address] Tatyana Ohara MD [address] [facility] [address] [place] [address] documented as of this encounter Visit Diagnoses Not on filedocumented in this encounter Care Teams Children[employer] Zoo Caretaker Relationship Specialty Start Date End Date Kymberly Gilmore MD [address] [place] [address] PCP - General Family Medicine 05/27/23 Yossi Hunter MD [address] [facility] Medical [facility] [address], [facility] [address] [place], [place] [id number] Dust Control Engineer Cardiology 06/17/23 documented as of this encounter
--- OUTSIDE RECORDS SUMMARY | 2025-02-17 17:41 | XMS_ITS | Encounter Summary ---
Author Organization [facility] Address [address] [place] [address] Care Team Providers Care Barrel Bridge Assembler Name Role Phone Kymberly Gilmore MD Primary Care Provider [phone] Encounter Details Date Type Department Care Team ([facility] st Contact Info) Description 01/29/2025 External Result Encounter [facility] External Department Unsolicited Martina Suarez MD [address] [place] [address] Social History Tobacco Use Types Packs/Day Years [...] Procedure Name Priority Date/Time Associated Diagnosis Comments PROTEIN C ANTIGEN Routine 01/29/2025 4:3 0 AM EDT documented in this encounter Results * PROTEIN C ANTIGEN (01/29/2025 4:30 AM EDT) PROTEIN C ANTIGEN 70 60 - 150 % 02/04/2025 8:09 AM EDT [facility] Comment: Performed at: [address] [id number] Partition Making Machine Operator: Ab Giordano MD, Phone: [phone] Other 01/29/2025 4:30 AM EDT 01/29/2025 4:48 AM EDT us Martina Suarez MD LAB BLOOD ORDERABLES Final Resul t Performing Organization Address [facility]/State/[facility] Co de Phone Number [address] [address], documented in this encounter Visit Diagnoses Not on filedocumented in this encounter Care Teams Barrel Bridge Assembler Relationship Specialty Start Date End Date Kymberly Gilmore MD PCP - General Family Medicine 10/22/23 documented as of this encounter
--- OUTSIDE RECORDS SUMMARY | 2025-02-17 17:42 | XMS_ITS | Encounter Summary ---
Author Organization [facility] Address [address] [place] [address] Phone Care Team Providers Care Chemical Lab Supervisor Name Role Phone Kymberly Gilmore MD Primary Care Provider [phone] Yossi Hunter MD Unavailable [phone] Encounter Details Date Type Department Care Team (Late st Contact Info) Description 01/22/2025 Scanned Document [facility] [address] [place] [address] Scanning, Generic Provider Social History Tobacco Use [...] Description 03/15/2025 1:20 PM EDT Office Visit [facility] [address] [facility] [address] [place] [address] Tatyana Ohara MD [address] [facility] [address] [place] [address] documented as of this encounter Visit Diagnoses Not on filedocumented in this encounter Care Teams Chemical Lab Supervisor Relationship Specialty Start Date End Date Kymberly Gilmore MD [address] [place] [address] PCP - General Family Medicine 05/27/23 Yossi Hunter MD [address] [facility] [address] [facility], [facility] [address] [place], [place] [phone] Finishing And Shipping Supervisor Cardiology 06/17/23 documented as of this encounter
--- OUTSIDE RECORDS SUMMARY | 2025-02-17 17:42 | XMS_ITS | Encounter Summary ---
Author Organization [facility] Address [address] [place] [address] Phone Care Team Providers Care Math Professor Name Role Phone Kymberly Gilmore MD Primary Care Provider [phone] Yossi Hunter MD Unavailable [phone] Encounter Details Date Type Department Care Team (Late st Contact Info) Description 01/25/2025 Scanned Document [facility] [address] [place] [phone] Scanning, Generic Provider Social History Tobacco Use [...] Description 03/15/2025 1:20 PM EDT Office Visit [facility] [address] [address] Tatyana Ohara MD [address] [facility] [address] [place] [address] Scheduled Orders Name Type Priority Associated Diagnoses Orde r Schedule Ultrasound- OnBase Scan Imaging O rdered: 01/25/2025 documented as of this encounter Visit Diagnoses Not on filedocumented in this encounter Care Teams Math Professor Relationship Specialty Start Date End Date Kymberly Gilmore MD [address] [place] [address] PCP - General Family Medicine 05/27/23 Yossi Hunter MD [address] [facility] [address], [facility] [address] [place], [place] [phone] Stone Gang Sawyer Cardiology 06/17/23 documented as of this encounter
--- OUTSIDE RECORDS SUMMARY | 2025-02-17 17:42 | XMS_ITS | Patient Health Record ---
Author Organization [employer] [facility] Address [address] [facility] [address], [place] [address] Care Team Providers Care Hourly Shift Manager Name Role Phone Mando BURKETT, Kymberly Primary Care Provider Unavailab Black Varma Unavailable [phone] Reason For Referral No Information Plan Of Treatment No Information Insurance Providers Payer Name Payer Address Payer Phone Subscriber Number Group Number Insured Name Patient Relationship to Insured Coverage Start Date Coverage End Date [facility] and Blue [facility] [address] [place] [phone] [id number] Trev Dias Spouse - patient is the spouse of the insured [place] Medicare Access Value [address] [place] [phone] [id number] Candy Dias Self - patient is the insured
--- OUTSIDE RECORDS SUMMARY | 2025-02-17 17:42 | XMS_ITS | Patient Health Record ---
Author Organization [facility] Address [address] [place] [address] Care Team Providers Care Cultural Historian Name Role Phone Kymberly Mitchell M.D. Primary Care Provider Unavail able Jovana Holloway Unavailable [phone] Cat BURKETT, Bhupinder Unavailable Unavailab David Sosa Unavailable [phone] Ana Lilia Mcclain Unavailable [phone] Allergies No Known Allergies Results Component Value Reference Range Notes XR LUMBAR SPINE 1 VW Reviewed date:06/09/2024 03:29:49 PM Interpretation: Performing Lab: Notes/Report: [facility]BILE LATERAL LUMBAR SPINE: [place] [address], Original Ordering Provider: Rajeev PLASENCIA Provider Role: Ordering XR LUMBAR SPINE 1 VW Reviewed date:06/09/2024 03:29:49 PM Interpretation: Performing Lab: Notes/Report: MOBILE LATERAL LUMBAR SPINE: [place] [address], Original Ordering Provider: Rajeev PLASENCIA Provider Role: Ordering TYPE AND SCREEN CAPTURE Reviewed date:04/23/2024 09:16:02 AM Interpretation: Performing Lab: Notes/Report: [facility] Original Ordering Provider: Rajeev VILLALBA Provider Role: Ordering ABO CAPTURE O RH CAPTURE (2 D CLONES) NEG INDIRECT FADI CAPTURE NEG Performing Lab: see note [facility] - [facility] [address] [facility] [address] Bipin Patrick XR WRIST LEFT STANDARD Reviewed date:06/14/2024 08:57:56 AM Interpretation: Performing Lab: Notes/Report: XR WRIST LEFT (MIN 3 VIEWS) [facility] [address], [place] [address], Original Ordering Provider: Rajeev GRIFFIN Provider Role: Ordering GFR, ESTIMATED, IOS Reviewed date:04/23/2024 09:16:02 AM Interpretation: Performing Lab: Notes/Report: [facility] Original Ordering Provider: Rajeev VILLALBA [...] secretion. Performing Lab: see note [facility] - [facility] [address] [facility] [address] [employer] POC ISTAT CHEM 8 AT IOS Reviewed date:04/23/2024 09:16:02 AM Interpretation: Performing Lab: Notes/Report: [facility] Original Ordering Provider: Rajeev VILLALBA [...] Surgeon/Assist: ST ROCHA/ALESIA OR DAVID Surgery Location: [facility] Surgery Date & Time: 06/08/24 @ 2:15PM Hosp arrival time day of: 12:15PM Surgery End Time: 4:15PM Procedure: L4-5 REVISION DECOMPRESSION WITH FUSION Special Equipment: SSEP, PRONE, TRINIDAD TABLE, SURGALIGN Diagnosis: M48.061 FORAMINAL STENOSIS Admission Type: OUTPATIENT Anesthesia Type/CPNB: GENERAL Bed 72 HOURS Post-op Appointment Date: 07/30/24 @ 10:30AM Lab Location: [facility] Lab Date/Time: ON OR BEFORE 03/29/24 Html Developer: RAJWINDER Moran Physician: DR MITCHELL 04/07/24 @ 10AM Clearance Appt Date/T DR QUAN SHARPE 04/02/24 @ 9:30AM History & Physical Appointment Date/: 04/15/24 @ 2PM MCRAE HELENA EKG 12-LEAD Reviewed date:06/09/2024 03:29:49 PM Interpretation: Performing Lab: Notes/Report: [address] [place] [address], Original Ordering Provider: Rajeev ARZOLA Provider Role: Attending EKG 12-LEAD Reviewed date:06/16/2024 11:01:31 AM Interpretation: Performing Lab: Notes/Report: [address] [place] [address], Original Ordering Provider: Rajeev ARZOLA Provider Role: Attending Reason For Referral Reason NO AUTH REQ..............................06/08/24...............................[facility] L4-5 REVISION DECOMPRESSION WITH FUSION 13259, 97560, 16[address], [address]703, 6[address]69 Diagnosis 1 Lumbar radiculopathy (M54.16) Diagnosis 2 Foraminal stenosis of lumbar region (M48 .061) Referral Organizati on [facility] Referring Provider First Name Jovana Referring Provider Last Name St Rocha Referring Provider Speciality Orthopedic Surgery Referred Organizati on [facility] Outpatient Referred Address [address] [place] [phone], Procedure 1 Arthrodesis, posterior lumbar, 1 lumbar level (47480) Procedure 2 Laminectomy, facetectomy and foraminotom y single lumbar (87433) Procedure 3 Laminectomy, facetectomy and foraminotom y additional vertebral segment (00972) Procedure 4 Posterior non-segmental instrumentation (21588) Procedure 5 Autograft for spine surgery only; local obtained from same incision (99937) General Notes Rajwinder Yang 03/17/2024 03:10:31 PM [...] THE MEDICARE INPATIENT LIST. PLEASE UPDATE WITH [facility]., Rajwinder Yang 05/31/2024 08:50:58 AM >CHANGED TO OUTPATIENT, Kadi Leblanc 05/31/2024 09:01:06 AM > THANK YOU, FAXED TO [facility]. Referral Priority Stat Medications Medication SIG [...] W/U Status Risk Notes Problem Lumbar radiculopathy (135645014) Lumbar radiculopathy (M54.16) Active confirmed Problem 205327461 Arthrodesis status (Z98.1) Active confirmed Problem 326307037432244 Left foot drop (M21.372) Active confirmed Problem Displacement of lumbar intervertebral disc without myelopathy (26752495) Bulging of lumbar intervertebral disc (M51.26) Active confirmed Problem Spinal stenosis of lumbar region (65124504) Foraminal stenosis of lumbar region (M48.061) Active confirmed Problem 067130615 Encounter for other orthopedic aftercare (Z47.89) Active confirmed Problem Other intervertebral disc degeneration, 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) Active confirmed Vital Signs Height 5'7 in 04/15/2024 Weight 190 lbs 04/15/2024 BMI 29.75 04/15/2024 Encounters Encounter Location Date Provider Diagnosis [facility] [place] [address] [place] [address] 04/15/2024 David Diglio Lumbar radiculopathy M54.16 ; Bulging of lumbar intervertebral disc M51.26 and Foraminal stenosis of lumbar region M48.061 [facility] Outpatient [address] [place], [place] [id number] 06/08/2024 [facility] Foraminal stenosis o f lumbar region M48.061 ; Bulging of lumbar intervertebral disc M51.26 and Other intervertebral disc degeneration, lumbar region with discogenic back pain and lower extremity pain M51.362 [facility] Office [address] [facility] [address] [place] [address] [place] [address] 08/13/2024 [facility] Encounter for other orthopedic aftercare Z47.89 ; Left foot drop M21.372 and Arthrodesis status Z98.1 Assessments Encounter Date Diagnosis (ICD Code) Assessment Notes Treatment Notes Treatment Clinical Notes Section Notes 04/15/2024 Lumbar radiculopathy (ICD-10 - M54.16) *patient [...] decompress ion/fusion 2. Left foot drop 08/13/2024 Arthrodesis status (ICD-10 - Z98.1) 1. 2 months s/p L4-5 decompress ion/fusion 2. Left foot drop 06/08/2024 Other intervertebral disc degeneration, lumbar region with discogenic back pain and lower extremity pain (ICD-10 - M51.362) 04/15/2024 Foraminal stenosis of lumbar region (ICD-10 - M48.061) 04/15/2024 Other A lumbosacral corset brace has [...] healing in the initial post-op period. 08/13/2024 Other Fatumatent is improving postoperatively and is starting to [...] Date Lumbar spine, 4v flex ext - 82877 2023 Lumbar spine 2v ap and lat - 83674 08/13 Surgery Scheduling 03/17/2024 DME - Lumbar Support, Surgical OTS 04/15 Type and Cross Blood 2 units 04/15/2024 Future Test Test Name Order Date Chest 2 views - 16453 03/17/2024 CBC 03/17/2024 PT/PTT 03/17/2024 BMP 03/17/2024 MRSA (Bilateral Nares) PCR 03/17/2024 EKG 03/17/2024 Insurance Providers Payer Name Payer Address Payer Phone Subscriber Number Group Number Insured Name Patient Relationship to Insured Coverage Start Date Coverage End Date [place] [employer] [address] [place] [address] [id number] JORGE GILL Spouse - patient is the spouse of the insured Medicare [address] [address] [place] [address] [phone] [id number] RASHID GILL Self - patient is the insured [facility] [address] [address] [place] [address] [id number] JORGE GILL Spouse - patient is the spouse of the insured 4 Medical (General) History Medical History History ICD Code High Blood Pressure Heart Attack Heart Failure Abnormal Heart Rhythm Lung Disease Bronchitis Stomach ulcers Gastric Reflux Irritable bowel syndrome Osteoarthritis Osteoporosis Bleeding Disorders Anemia Endometriosis Ovarian Cysts Anxiety Depression Surgical History Surgery Date(Month/Year) L4-5 laminectomy, PSF 06/08/2024
--- OUTSIDE RECORDS SUMMARY | 2025-02-17 17:42 | XMS_ITS | Patient Health Record ---
Author Organization [facility] [place] Address [address] [place] [address] Care Team Providers Care Blacking Machine Operator Name Role Phone Kymberly Gilmore Primary Care Provider Abhijit Zhang [phone] Results Component Value Reference Range Notes XR ankle DELFINO 2V (Not yet rev iewed by provider) Interpretation: Performing Lab: Notes/Report: Source Facility: [place] [address] XRay Report Signed Patient: RASHID BOOTH MR#: [id number] : 1970 Acct:[id number] Age/Sex: 53 / F ADM Date: 06/01/24 Loc: [facility] Attending Dr: Abhijit Weeks D.P.M. Ordering Physician: Abhijit Weeks D.P.M. Date of Service: 06/01/24 Procedure(s): XR ankle DELFINO 2V Accession Number(s): [id number] cc: Kymberly Gilmore M.D.; Abhijit Weeks D.P.M. [address] [place] [address] Patient Name: RASHID BOOTH MRN: [id number] date: 1970 Sex: F Assigned Patient Location: RAD Current Patient Location: RAD Accession/Order Number: [id number] Exam Date: 06/01/2024 15:20 Report Date: 06/02/2024 [...] M.D. Signed By: 06/02/241334 DD/ 32 TD/TT: Production Planning Manager: XR FOOT DELFINO 2V (Not yet revi ewed by provider) Interpretation: Performing Lab: Notes/Report: Source Facility: [place] [address] XRay Report Signed Patient: RASHID BOOTH MR#: [id number] : 1970 Acct:[id number] Age/Sex: 53 / F ADM Date: 06/01/24 Loc: RAD Attending Dr: Abhijit Weeks D.P.M. Ordering Physician: Abhijit Weeks D.P.M. Date of Service: 06/01/24 Procedure(s): XR foot DELFINO 2V Accession Number(s): [id number] cc: Kymberly Gilmore M.D.; Abhijit Weeks D.P.M. [place] [address] Patient Name: RASHID BOOTH MRN: [id number] date: 1970 Sex: F Assigned Patient Location: RAD Current Patient Location: RAD Accession/Order Number: [id number] Exam Date: 06/01/2024 15:20 Report Date: 06/02/2024 [...] Jones M.D. 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 (PODIATRY) [address] [place] [address] [place] [address] 06/01/2024 Abhijit Weeks Pain in left ankle [...] ACCESS PPO PLUS LOCAL PLAN [address] [place] [address] [id number] Phillip Rashid guillen Self - patient is the insured 5 [place] [address] [id number] Phillip wilmer, Rashid Self - patient is the insured 3
--- OUTSIDE RECORDS SUMMARY | 2025-02-17 17:42 | XMS_ITS | Clinical Summary ---
Author Organization [facility] Address [address], [address] [place] [address] Care Team Providers Care Clinical Trial Specialist Name Role Phone Kymberly Gilmore MD Primary Care Provider [phone] Allergies Active Allergy Reactions Criticality Noted Date [...] mouth at bedtime Active Cholecalciferol (VITAMIN D3) 37360 units CAPS Take by mouth Twice a [...] = 0.6 oz pur e alcohol) socially [facility] Utilities Answer Date Recorded In the past 12 months has th e Ogone, gas, oil, or water Fiksu threatened to shut off services in your [...] place to sleep or slept in a senior care (including now)? No 12/30/2023 Housing Stability Vital Sign Answer Jose e Recorded In the last 12 months, was t here a time when you were not able to pay the mortgage or rent on time? No 06/09/2024 In the past 12 months, how m any times have you moved where you were living? 0 06/09/2024 At any time in the past 12 m [facility], were you homeless or living in a senior care (including now)? No 06/09/2024 Food Insecurity Answer [...] 2008 FIT/FOBT: Average risk 2013 Fecal-DNA (Cologuard): Comfrey ge risk 2013 Sigmoidoscopy/CT colonography 2013 Pneumococcal 50+ years Vacci ne (1 of 1 - PCV) 2018 Shingles vaccine (1 of 2) 2018 Breast cancer screen 02/03/2021 02/03/2019 Annual Wellness Visit (Medicare) 12/30/2023 Flu vaccine (#1) 12/24/2024 05/13/2021, 04/28/2020, 03/06/2016 COVID-19 Vaccine (2024-2 6 season) 2025 05/13/2021, 08/22/2020, 08/02/2020 Colonoscopy 10/21/2027 10/20/2017 Colorectal Cancer Screen 10/21/2027 [...] this topic Medical Devices Implanted Type Area Chaser Helper Device Identifier Shelf Expiration Date Model / Serial / Lot Floseal Hemostat Matrx 5ml Needle Free Implanted:Qty : 1 on 02/09/2018 by Ronal Matos MD at [facility] Bone/Gr aft/Tis bladimir/Hum an/Synt h N/A: Spine Lumbar [employer] BETHEL-PMM 06/10/2019 [id number] / / [id number] Clip Braided 360 Catheter Resolution Ultra - [id number] Implanted:Qty : 1 on 01/07/2024 by Ricki De La Cruz MD at [facility] N/A: Other [employer]- [id number] 07/22/2026 [id number] / / [id number] Description:Clip placed at G J junction Clip Hemostasis Mantis 2.8mm X 235cm - [id number] Implanted:Qty : 2 on 01/07/2024 by Ricki De La Cruz MD at [facility] N/A: Other [employer] [id number] 05/09/2026 [id number] / / [id number] Description:Clip placed at G J junction Allograft Bne Bridge 50x25 Mm 24 Cc Bioadapt - [id number] Implanted:Qty : 1 on 06/08/2024 by Jovana Guardado MD at [facility] N/A: Spine Lumbar [employer] 01/06/2027 [id number] / [id number] / [id number] Set Screw 5.5-6.0 - [id number] Implanted:Qty : 4 on 06/08/2024 by Jovana Guardado MD at [facility] N/A: Spine Lumbar [employer] [id number] / / Screw Poly Solid 6.5x40 - [id number] Implanted:Qty : 2 on 06/08/2024 by Jovana Guardado MD at [facility] N/A: Spine Lumbar [employer] [id number] / / Screw Poly Solid 6.5x45 - [id number] Implanted:Qty : 2 on 06/08/2024 by Jovana Guardado MD at [facility] N/A: Spine Lumbar [employer] [id number] / / Dhaval Ti Prebent 5.5x35 - [id number] Implanted:Qty : 2 on 06/08/2024 by Jovana Guardado MD at [facility] N/A: Spine Lumbar [employer] [id number] / / Insurance MEDICARE Member Subscriber Plan / Payer (Ef fective 2022-Present) Name:Candy Booth Relation to Subscriber:Self Name:Candy Booth Payer ID:Not on file Group ID:Not on file Type:Not on file Address: [address] MEDICARE MEDICARE Advance Directives Documents on File Type Date Recorded Patient Swift Tender Expl anation ACP-Advance Directive 10/19/2017 4:34 PM [...] 8:17 PM 10/19/2017 8:31 AM Care Teams Clinical Trial Specialist Relationship Specialty Start Date End Date Kymberly Gilmore MD PCP - General Family Medicine 10/18/17
--- OUTSIDE RECORDS SUMMARY | 2025-02-17 17:42 | XMS_ITS | Clinical Summary ---
Author Organization [facility] Address [address] [place] [address] Care Team Providers Care Interior Design Director Name Role Phone Unavailable Primary Care Provider [...] 2) 2018 COVID-19 Vaccine (1 - season) 2025 Influenza Vaccine (#1) 2025 05/13/2021 Hepatitis B [...] patient's age to complete this topic Insurance [facility] MEDICARE
--- OUTSIDE RECORDS SUMMARY | 2025-02-17 17:42 | XMS_ITS | Encounter Summary ---
Author Organization [facility] Address [address] [place] [address] Phone Care Team Providers Care Special Education Educational Assistant Name Role Phone Kymberly Gilmore MD Primary Care Provider [phone] Yossi Hunter MD Unavailable [phone] Encounter Details Date Type Department Care Team (Late st Contact Info) Description 01/26/2025 Scanned Document [facility] [address] [place] [address] Scanning, Generic Provider Social History Tobacco Use [...] Description 03/15/2025 1:20 PM EDT Office Visit [facility] [address] [facility] [address] [place] [address] Tatyana Ohara MD [address] [facility] [address] [place] [address] documented as of this encounter Procedures Procedure Name Priority Date/Time Associated Diagnosis Comments ECHOCARDIOGRAM 01/26/2025 documented in this encounter Results * Echocardiogram (01/26/2025) Narrative 01/26/2025 Ordered by an unspecified provider. us Generic Provider Scanning CV ECHO PROCEDURES Fin al Result documented in this encounter Visit Diagnoses Not on filedocumented in this encounter Care Teams Special Education Educational Assistant Relationship Specialty Start Date End Date Kymberly Gilmore MD [address] [place] [address] PCP - General Family Medicine 05/27/23 Yossi Hunter MD [address] [facility] [address] [place] [address] Melt House Supervisor Cardiology 06/17/23 documented as of this encounter
--- OUTSIDE RECORDS SUMMARY | 2025-02-17 17:43 | XMS_ITS | Clinical Summary ---
Author Organization [facility] Address [address] [place] [address] Phone Care Team Providers Care Full Stack Engineer Name Role Phone Kymberly Gilmore MD Primary Care Provider [phone] Yossi Hunter MD Unavailable [phone] Allergies Active Allergy Reactions Criticality Noted Date [...] 05/27/2023 Dizziness 05/27/2023 Dilation of aorta 05/27/2023 Encounters Date Type Department Care Team Description 02/01/2025 Scanned Document [facility] [address] [place] [address] Scanning, Generic Provider 01/31/2025 Scanned Document [facility] [address] [place] [address] Scanning, Generic Provider 01/26/2025 Scanned Document [facility] [address] [place] [address] Scanning, Generic Provider 01/25/2025 Scanned Document [facility] [address] [place] [address] Scanning, Generic Provider 01/22/2025 Scanned Document [facility] [address] [place] [address] Scanning, Generic Provider from Last 3 Months Family History Medical [...] 05/07/2024 9:22 AM EST Plan of Treatment Upcoming Encounters Date Type Department Care Team (Late st Contact Info) Description 03/15/2025 1:20 PM EDT Office Visit [facility] [address] [phone] Tatyana Ohara MD [address] [facility] [address] [place] [address] Health Maintenance Due Date Last Done Comments [...] Vaccines (1 of 2) 2018 COVID-19 Vaccine (4 - 2024-26 season) 2025 05/13/2021, 08/22/2020, 08/02/2020 Influenza Vaccine (#1) 2025 [...] on patient's age to complete this topic Procedures Procedure Name Priority Date/Time Associated Diagnosis Comments ECHOCARDIOGRAM 01/26/2025 from Last 3 Months Results * Echocardiogram (01/26/2025) Narrative 01/26/2025 Ordered by an unspecified provider. us Generic Provider Scanning CV ECHO PROCEDURES Fin al Result from Last 3 Months Insurance MEDICARE PART [place] [address] MEDICARE PART A AND B Care Teams Full Stack Engineer Relationship Specialty Start Date End Date Kymberly Gilmore MD [address] [place] [address] PCP - General Family Medicine 05/27/23 Yossi Hunter MD [address] [facility] [address] [place] [address] Leasing Director Cardiology 06/17/23
--- OUTSIDE RECORDS SUMMARY | 2025-02-17 17:43 | XMS_ITS | Clinical Summary ---
Author Organization [facility] Healthcare Address [address] [place] [address] Care Team Providers Care Pain Medicine Physician Name Role Phone Kymberly Gilmore MD Primary Care Provider [phone] Allergies Active Allergy Reactions Criticality Noted Date [...] 3 Active cholecalciferol (Vitamin D-3) 1.25 MG (84317 UT) capsule Twice a Week 3 Active ALPRAZolam (Xanax) 0.5 MG tablet Take 0.5 mg by mouth every 4 (four) hours 3 Active acetaminophen (Tylenol) 500 MG tablet Take 1,000 mg by mouth every 4 (four) hours if needed Active Encounters Date Type Department Care Team Description 01/29/2025 External Result Encounter [facility] External Department Unsolicited Martina Suarez MD 01/29/2025 External Result Encounter [facility] External Department Unsolicited Martina Suarez MD 01/29/2025 External Result Encounter [facility] External Department Unsolicited Martina Suarez MD 01/29/2025 External Result Encounter [facility] External Department Unsolicited Martina Suarez MD 01/29/2025 External Result Encounter [facility] External Department Unsolicited Martina Suarez MD 01/29/2025 External Result Encounter [facility] External Department Unsolicited Martina Suarez MD 01/29/2025 External Result Encounter [facility] External Department Unsolicited Martina Suarez MD 01/29/2025 External Result Encounter [facility] External Department Unsolicited Martina Suarez MD 01/29/2025 External Result Encounter [facility] External Department Unsolicited Martina Suarez MD 01/29/2025 External Result Encounter [facility] External Department Unsolicited Martina Suarez MD 01/29/2025 External Result Encounter [facility] External Department Unsolicited Martina Suarez MD 01/29/2025 External Result Encounter [facility] External Department Unsolicited Martina Suarez MD from Last 3 Months Social History Tobacco Use Types Packs/Day Years [...] 02/03/2019, 02/03/2019 Influenza Vaccine (#1) 2025 05/13/2021 Procedures Procedure Name Priority Date/Time Associated Diagnosis Comments PROTEIN ELECTRO, RANDOM URINE Routine 01/29/2025 5:10 AM EDT CREATININE, RANDOM URINE Routine 01/29/2025 5:10 AM EDT TOTAL PROTEIN, URINE Routine 01/29/2025 5:10 AM EDT PROTEIN C ANTIGEN Routine 01/29/2025 4:3 0 AM EDT FACTOR II DNA ANALYSIS Routine 4:29 AM EDT FACTOR 5 LEIDEN Routine 01/29/2025 4:29 AM EDT PROT ELECTROPHOR W/REFLEX ISA Routine 01/29/2025 4:29 AM EDT BETA 2 GLYCOPROTEIN I AB IGGAM Routine 01/29/2025 4:29 AM EDT PROTEIN S ANTIGEN Routine 01/29/2025 4:2 9 AM EDT PROTEIN S FUNCTIONAL Routine 01/29/2025 4:29 AM EDT ANTICARDIOLIPIN IGG/M/A, QN Routine 01/29/2025 4:29 AM EDT DRVVT WITH REFLEX Routine 01/29/2025 4:2 9 AM EDT ANTITHROMBIN ACTIVITY Routine 01/29/2025 4:29 AM EDT PROTEIN C FUNCTIONAL Routine 01/29/2025 4:29 AM EDT FIBRINOGEN ACTIVITY, CLAUSS Routine 01/29/2025 4:29 AM EDT PROTHROMBIN TIME-INR Routine 01/29/2025 4:29 AM EDT from Last 3 Months Results * TOTAL PROTEIN, URINE (01/29/2025 5:10 AM EDT) TOTAL PROTEIN, URINE 7 0 - 9 mg/dL 01/29/2025 6:36 AM EDT [facility] Other 01/29/2025 5:10 AM EDT 01/29/2025 6:14 AM EDT us Martina Suarez MD LAB BLOOD ORDERABLES Final Resul t [facility] [address] [place] [address], [facility] [address] [place] [address] * PROTEIN ELECTRO, RANDOM URINE (01/29/2025 5:10 AM EDT) PROTEIN, TOTAL, URINE 5.7 Not Estab. mg/dL 02/01/2025 3:08 PM EDT [facility] ALBUMIN, URINE 34.0 . % 02/01/2025 3:08 PM EDT [facility] [id number], URINE 4.2 . % 02/01/2025 3:08 PM EDT [facility] [id number], URINE 8.4 . % 02/01/2025 3:08 PM EDT [facility] BETA GLOBULIN, URINE 22.3 . % 02/01/2025 3:08 PM EDT [facility] GAMMA GLOBULIN, URINE 31.0 . % 02/01/2025 3:08 PM EDT [facility] M-SPIKE % Not Observed Not Observed % 02/01/2025 3:08 PM EDT [facility] PLEASE NOTE: Comment . 02/01/2025 3:08 PM EDT [facility] Comment: Protein electrophoresis scan will follow via computer, mail, or filtration operator delivery. Performed at: [address] [id number] Hay Baler: Marcelo Parikh PhD, Phone: [phone] Other 01/29/2025 5:10 AM EDT 01/29/2025 6:14 AM EDT Martina Suarez MD LAB BLOOD ORDERABLES Final Resul t Performing Organization Address [facility] [place] [address], * Creatinine, urine, random (01/29/2025 5:10 AM EDT) CREATININE, URINE (RANDOM) 17.00 mg/dL 01/29/2025 6:36 AM EDT [facility] Comment:No reference range e stablished Other 01/29/2025 5:10 AM EDT 01/29/2025 6:14 AM EDT Martina Suarez MD LAB URINE ORDERABLES Final Resul t Performing Organization Address [facility] Co de Phone Number [place] [phone], [facility] [address] [place], [place] [phone] * PROTEIN C ANTIGEN (01/29/2025 4:30 AM EDT) PROTEIN C ANTIGEN 70 60 - 150 % 02/04/2025 8:09 AM EDT [facility] Comment: Performed at: [address] [id number] Hay Baler: Ab Giordano MD, Phone: [phone] Other 01/29/2025 4:30 AM EDT 01/29/2025 4:48 AM EDT Martina Suarez MD LAB BLOOD ORDERABLES Final Resul t Performing Organization Address [facility] de Phone Number [facility] [address] [place] [address], [place] * ANTITHROMBIN ACTIVITY (01/29/2025 4:29 AM EDT) ANTITHROMBIN ACTIVITY 97 75 - 135 % 01/31/2025 11:08 AM EDT [facility] Comment: Direct Xa inhibitor anticoagulants such as rivaroxaban, apixaban and edoxaban will lead to spuriously elevated antithrombin activity levels possibly masking a deficiency. Performed at: [address] [id number] Hay Baler: Ab Giordano MD, Phone: [phone] Other 01/29/2025 4:29 AM EDT 01/29/2025 4:48 AM EDT Martina Suarez MD LAB BLOOD ORDERABLES Final Resul t Performing Organization Address [facility] Phone Number [facility] [address] [place] [address], [place] * BETA 2 GLYCOPROTEIN I AB IGGAM (01/29/2025 4:29 AM EDT) BETA 2 GLYCOPROTEIN I AB, IGG <9 0 - 20 01/31/2025 3:08 PM EDT [facility] Comment:Result Units: GPI Ig G units BETA 2 GLYCOPROTEIN I AB, IGA <9 0 - 25 01/31/2025 3:08 PM EDT [facility] Comment:Result Units: GPI Ig A units BETA 2 GLYCOPROTEIN I AB, IGM <9 0 - 32 01/31/2025 3:08 PM EDT [facility] Comment: Result Units: GPI IgM units Performed at: [address] [id number] Hay Baler: Marcelo Parikh PhD, Phone: [phone] Other Topography unknown / Unknown 01/29/2025 4:29 AM EDT 01/29/2025 4:48 AM EDT Martina Suarez MD LAB BLOOD ORDERABLES Final Resul t Performing Organization Address [facility] de Phone Number [facility] [address] [place] [address], [place] * PROTEIN C FUNCTIONAL (01/29/2025 4:29 AM EDT) PROTEIN C FUNCTIONAL 96 73 - 180 % 01/31/2025 11:08 AM EDT [facility] Comment: Performed at: - [address] [id number] Hay Baler: Ab Giordano MD, Phone: [phone] Other 01/29/2025 4:29 AM EDT 01/29/2025 4:48 AM EDT Martina Suarez MD LAB BLOOD ORDERABLES Final Resul t Performing Organization Address [facility] de Phone Number [facility] [address] [place] [address], [place] * PROTEIN S FUNCTIONAL (01/29/2025 4:29 AM EDT) Pathologist [facility] PROTEIN S FUNCTIONAL 59 63 - 140 % 01/31/2025 12:36 PM EDT [facility] Comment: A deficiency of protein S (PS), either congenital or acquired, increases the risk of thromboembolism. PS activity levels may be falsely low in individuals with APCR/Factor V Leiden. Consider performing free protein S antigen in those with APCR/Factor V Leiden before making a diagnosis of protein S deficiency. Acquired PS deficiency is more common than congenital deficiency. PS values decrease with normal , and are also dependent on age, sex and hormone status. PS values tend to be lower in a younger age group and lower in women than in men. Levels may be decreased in pre-menopausal women on oral contraceptive agents. Acquired deficiency can occur as a result of vitamin K deficiency or antagonism, severe hepatic disorders, (hepatitis, cirrhosis, etc.), nephrotic syndrome, inflammatory bowel disease, certain chemotherapeutic agents, L-asparaginse therapy, sepsis, disseminated intravascular coagulation (DIC) and acute thrombosis. Levels may be decreased in patients with polycythemia vera, sickle cell disease and essential thrombocythemia. Repeat evaluation on a new plasma sample to confirm or refute this result should be considered, after ruling out acquired causes, depending on the clinical scenario. Performed at: [address] [id number] Hay Baler: Ab Giordano MD, Phone: [phone] Other 01/29/2025 4:29 AM EDT 01/29/2025 4:48 AM EDT Martina Suarez MD [facility] Final Result Performing Organization Address [facility] Co de Phone Number [facility] [address] [place] [address], [place] * PROTEIN S ANTIGEN (01/29/2025 4:29 AM EDT) PROTEIN S, TOTAL 80 60 - 150 % 01/31/2025 1:08 PM EDT [facility] Comment: This test was developed and its performance characteristics determined by [facility]. It has not been cleared or approved by the Food and Drug Administration. PROTEIN S, FREE 81 61 - 136 % 01/31/2025 1:08 PM EDT [facility] Comment: Performed at: [address] [id number] Hay Baler: Ab Giordano MD, Phone: [phone] Other 01/29/2025 4:29 AM EDT 01/29/2025 4:48 AM EDT Martina Suarez MD [facility] Final Result Performing Organization Address [facility] Co de Phone Number [facility] [address] [place] [address], [place] * PROT ELECTROPHOR W/REFLEX ISA (01/29/2025 4:29 AM EDT) TOTAL PROTEIN, SERUM 5.1 6.0 - 8.5 g/dL 02/02/2025 9:08 AM EDT [facility] ALBUMIN, SERUM 2.4 2.9 - 4.4 g/dL 02/02/2025 9:08 AM EDT [facility] [id number]-[id number] 0.2 0.0 - 0.4 g/dL 02/02/2025 9:08 AM EDT [facility] [id number]-[id number] 0.7 0.4 - 1.0 g/dL 02/02/2025 9:08 AM EDT [facility] BETA GLOBULIN 1.0 0.7 - 1.3 g/dL 02/02/2025 9:08 AM EDT [facility] GAMMA GLOBULIN 0.8 0.4 - 1.8 g/dL 02/02/2025 9:08 AM EDT [facility] M-SPIKE Comment: Not Observed g/dL 02/02/2025 9:08 AM EDT [facility] Comment:SPE shows asymmetric al gamma. GLOBULIN, TOTAL 2.7 2.2 - 3.9 g/dL 02/02/2025 9:08 AM EDT [facility] A/G RATIO 0.9 0.7 - 1.7 02/02/2025 9:08 AM EDT [facility] SPE-NOTE Comment . 02/02/2025 9:08 AM EDT [facility] Comment: Protein electrophoresis scan will follow via computer, mail, or filtration operator delivery. IMMUNOFIXATION REFLEX . . 02/02/2025 9:08 AM EDT [facility] IMMUNOFIXATION RESULT Comment: . [facility]2025 [facility]: Presence of monoclonal protein is unclear at this time. Suggest repeat in 3 to 6 months if clinically indicated. Performed at: [address] [id number] Hay Baler: Marcelo Parikh PhD, Phone: [phone] Other Topography unknown / Unknown 01/29/2025 4:29 AM EDT 01/29/2025 4:48 AM EDT us Martina Suarez MD [facility] Final Result [facility] [address] [place] [address], * FACTOR II DNA ANALYSIS (01/29/2025 4:29 AM EDT) [facility] FACTOR II, DNA ANALYSIS Comment . 02/04/2025 4:09 PM EDT [facility] Comment: Result: c.*97G>A - Not Detected This result is not associated with an increased risk for venous thromboembolism. See Additional Clinical Information and Comments. Additional Clinical Information: Venous thromboembolism is a multifactorial disease influenced by genetic, environmental, and circumstantial risk factors. The c.*97G>A variant in the F2 gene is a genetic risk factor for venous thromboembolism. Heterozygous carriers have a 2- to 4-fold increased risk for venous thromboembolism. Homozygotes for the c.*97G>A variant are rare. The annual risk of VTE in homozygotes has been reported to be 1.1%/year. Individuals who carry both a c.*97G>A variant in the F2 gene and a c.1601G>A (p. [id number]) variant in the F5 gene (commonly referred to as Factor V Leiden) have an approximately 20- fold increased risk for venous thromboembolism. Risks are likely to be even higher in more complex genotype combinations involving the F2 c.*97G>A variant and Factor V Leiden (PMID: 52140176). Additional risk factors include but are not limited to: deficiency of protein C, protein S, or antithrombin III, age, male sex, personal or family history of deep vein thromboembolism, smoking, surgery, prolonged immobilization, malignant neoplasm, tamoxifen treatment, raloxifene treatment, oral contraceptive use, hormone replacement therapy, and . Management of thrombotic risk and thrombotic events should follow established guidelines and fit the clinical circumstance. This result cannot predict the occurrence or recurrence of a thrombotic event. Comments: Genetic counseling is recommended to discuss the potential clinical implications of positive results, as well as recommendations for testing family members. Genetic Coordinators are available for health care providers to discuss results at [phone] ([phone]). Test Details: Variant analyzed: c.*97G>A, previously referred to as [id number] Methods/Limitations: DNA analysis of the F2 gene (NM_000506.5) was performed by PCR amplification followed by restriction enzyme analysis. The diagnostic sensitivity is >99%. Results must be combined with clinical information for the most accurate interpretation. Molecular-based testing is highly accurate, but as in any laboratory test, diagnostic errors may occur. False positive or false negative results may occur for reasons that include genetic variants, blood transfusions, bone marrow transplantation, somatic or tissue-specific mosaicism, mislabeled samples, or erroneous representation of family relationships. This test was developed and its performance characteristics determined by [facility]. It has not been cleared or approved by the Food and Drug Administration. References: Triston S, Rebecca PATINO, Eagle R, Marissa WW, Jamaal JH; [employer] Professional Practice and Guidelines Committee. Addendum: [place] [employer] consensus statement on factor V Leiden mutation testing. [facility]. 2020Jul 28. doi: 10.1038/p24038-882-97663-o. PMID: 76624923. Mike GLOVER. Prothrombin Thrombophilia. 2005Dec 17 [Updated 2020Jun 29]. In: Itz MP, Angeline HH, Matthew RA, et al., editors. Adriel(R) [Internet]. [place] ([place]): [facility]; 5580-8768. Available from: https://www.ncbi.nlm.nih.gov/books/LPD5647/ Kamari S, Rebecca PATINO, David X, Humberto B, Charly EB, Missy P, Dimas CS; [employer] Laboratory Bus Attendant Committee. Venous thromboembolism laboratory testing (factor V Leiden and factor II c.*97G>A), 2018 update: a technical standard of the [place] [employer] and [employer] (ACMG). [employer]ma Med. 2018 Apr;20(12):2227-3390. doi: 10.1038/[id number]-z. Epub 2017Feb 27. PMID: 02788072. ADDITIONAL INFORMATION Comment . 02/04/2025 4:09 PM EDT [facility] Comment: Technical Component performed at [facility] [place] Professional Component performed by: Gildardo Moore, PhD, [facility] [id number], [facility], [address] [place] [address] Performed at: - [facility] [place] [address], [place], [place] [id number] Hay Baler: Diego Patel [facility], Phone: [phone] Blood (Blood) 01/29/2025 4:2 9 AM EDT 01/29/2025 4:48 AM EDT [facility] Final Result [facility] [address] [place] [address], [place] * DRVVT WITH REFLEX (01/29/2025 4:29 AM EDT) Pathologist [facility] DILUTE RUSSELLS VIPER VENOM 40.8 0.0 - 47.0 01/31/2025 12:08 PM EDT [facility] PTT-LA 34.6 0.0 - 43.5 01/31/2025 12:08 PM EDT [facility] INTERPRETATION Comment: . 01/31/2025 12:08 PM EDT [facility] Comment: No lupus anticoagulant was detected. Performed at: [address] [id number] Hay Baler: Ab Giordano MD, Phone: [phone] Other 01/29/2025 4:29 AM EDT 01/29/2025 4:48 AM EDT Martina Suarez MD [facility] Final Result [facility] [address] [place] [address], [place] * ANTICARDIOLIPIN IGG/M/A, QN (01/29/2025 4:29 AM EDT) Pathologist [facility] ANTICARDIOLIPIN AB, IGG,QN <9 0 - 14 01/31/2025 12:36 PM EDT [facility] Comment: Negative: <15 Indeterminate: 15 - 20 Low-Med Positive: >20 - 80 High Positive: >80 ANTICARDIOLIPIN AB, IGM,QN <9 0 - 12 01/31/2025 12:36 PM EDT [facility] Comment: Negative: <13 Indeterminate: 13 - 20 Low-Med Positive: >20 - 80 High Positive: >80 ANTICARDIOLIPIN AB, IGA,QN <9 0 - 11 01/31/2025 12:36 PM EDT [facility] Comment: Negative: <12 Indeterminate: 12 - 20 Low-Med Positive: >20 - 80 High Positive: >80 Performed at: [facility] [address] [id number] Hay Baler: Marcelo Parikh PhD, Phone: [phone] Other Topography unknown / Unknown 01/29/2025 4:29 AM EDT 01/29/2025 4:48 AM EDT us Martina Suarez MD LAB BLOOD ORDERABLES Final Resul t [facility] [address] [place] [address], [place] * (ABNORMAL) Factor 5 leiden (01/29/2025 4:29 AM EDT) FACTOR V LEIDEN Comment(AA) . 02/04/20 4:09 PM EDT [facility] Comment: Result: c.1601G>A (p.[id number]) - Detected, Heterozygous This result is associated with a 6- to 8-fold increased risk for venous thromboembolism. See Additional Clinical Information and Comments. Additional Clinical Information: Venous thromboembolism is a multifactorial disease influenced by genetic, environmental, and circumstantial risk factors. The c.1601G>A (p. [id number]) variant in the F5 gene, commonly referred to as Factor V Leiden, is a genetic risk factor for venous thromboembolism. Heterozygous carriers of this variant have a 6- to 8-fold increased risk for venous thromboembolism. Individuals homozygous for this variant (ie, with a copy of the variant on each chromosome) have an approximately 80-fold increased risk for venous thromboembolism. Individuals who carry both a c.*97G>A variant in the F2 gene and Factor V Leiden have an approximately 20-fold increased risk for venous thromboembolism. Risks are likely to be even higher in more complex genotype combinations involving the F2 c.*97G>A variant and Factor V Leiden (PMID: 87930362). Additional risk factors include but are not limited to: deficiency of protein C, protein S, or antithrombin III, age, male sex, personal or family history of deep vein thromboembolism, smoking, surgery, prolonged immobilization, malignant neoplasm, tamoxifen treatment, raloxifene treatment, oral contraceptive use, hormone replacement therapy, and . Management of thrombotic risk and thrombotic events should follow established guidelines and fit the clinical circumstance. This result cannot predict the occurrence or recurrence of a thrombotic event. Comment: Genetic counseling is recommended to discuss the potential clinical implications of positive results, as well as recommendations for testing family members. Genetic Coordinators are available for health care providers to discuss results at [phone] ([phone]). Test Details: Variant Analyzed: c.1601G>A (p. [id number]), referred to as Factor V Leiden Methods/Limitations: DNA analysis of the F5 gene (NM_000130.5) was performed by PCR amplification followed by electrophoresis. The diagnostic sensitivity is >99%. Results must be combined with clinical information for the most accurate interpretation. Molecular-based testing is highly accurate, but as in any laboratory test, diagnostic errors may occur. False positive or false negative results may occur for reasons that include genetic variants, blood transfusions, bone marrow transplantation, somatic or tissue-specific mosaicism, mislabeled samples, or erroneous representation of family relationships. This test was developed and its performance characteristics determined by [facility]. It has not been cleared or approved by the Food and Drug Administration. References: Triston Santos, Rebecca PATINO, Eagle R, Marissa WW, Jamaal JH; [employer] Professional Practice and Guidelines Committee. Addendum: [place] [employer] consensus statement on factor V Leiden mutation testing. [employer] Med. 2020Jul 28. doi: 10.1038/c16219-495-61666-o. PMID: 74733063. Mike GLOVER. Factor V Leiden Thrombophilia. 1998October 06 (Updated 2017May 29). In: Itz MP, Angeline HH, Matthew RA, et al., editors. Adriel(R) (Internet). [place] ([place]): [facility]; 5003-6506. Available from: https://www.ncbi.nlm.nih.gov/books/CZN0090/ Kamari Santos, Rebecca PATINO, David X, Humberto B, Charly EB, Missy P, Dimas CS; [employer] Laboratory Bus Attendant Committee. Venous thromboembolism laboratory testing (factor V Leiden and factor II c. *97G>A), 2018 update: a technical standard of the [place] [employer] (ACMG). Velma Med. 2017;20(12): 7977-3010. doi: 10.1038/[id number]-a. Epub 2017Feb 27. PMID: 25349804. REVIEWED BY: Comment . 02/03/2025 4:09 PM EDT [facility] Comment: [facility], Ph.D., FACMG Performed at: [facility] [address] [place], [place] [id number] Hay Baler: Diego Patel [facility], Phone: [phone] Blood (Blood) 01/29/2025 4:2 9 AM EDT 01/29/2025 4:48 AM EDT Martina Suarez MD LAB BLOOD ORDERABLES Final Resul t Performing Organization Address [facility] Co de Phone Number [address] [address], * Protime-INR (01/29/2025 4:29 AM EDT) PROTHROMBIN TIME 10.8 9.0 - 12.9 s 01/29/2025 5:31 AM [facility] Comment: A hematocrit value greater than 55% may lead to inaccurate results in coagulation testing. Patients having hematocrit values >55% require a special collection tube for coagulation studies. Please contact the laboratory at [phone] for redraw instructions. INR 0.9 01/29/2025 5:31 AM [facility] Comment: INR Therapeutic Range A) Pre- and Peroperative OAT started two weeks before surgery. NOT HIP SURGERY: 1.5 - 2.5 HIP SURGERY: 2 - 3 B) Primary and secondary prevention of venous THROMBOSIS: 2 - 3 C) Active venous thrombosis, pulmonary embolism and prevention of recurrent venous thrombosis: 2 - 3 D) Prevention of arterial thromboembolism including patients with mechanical heart valves: 3 - 4.5 Other Topography unknown / Unknown 01/29/2025 4:29 AM EDT 01/29/2025 4:48 AM EDT Martina Suarez MD LAB BLOOD ORDERABLES Final Resul t Performing Organization Address [facility] Co de Phone Number [address] [address], [place] [phone] * Fibrinogen (01/29/2025 4:29 AM EDT) FIBRINOGEN 333 200 - 393 mg/dL 01/29/2025 5:31 AM EDT [facility] Comment: A hematocrit value greater than 55% may lead to inaccurate results in coagulation testing. Patients having hematocrit values >55% require a special collection tube for coagulation studies. Please contact the laboratory at [phone] for redraw instructions. Other Topography unknown / Unknown 01/29/2025 4:29 AM EDT 01/29/2025 4:48 AM EDT us Martina Suarez MD LAB BLOOD ORDERABLES Final Resul t [facility] [address] [place] [address], [facility] [address] [place] [address] from Last [address] [facility] MEDICARE Care Teams Pain Medicine Physician Relationship Specialty Start Date End Date Kymberly Gilmore MD PCP - General Family Medicine 10/22/23
--- OUTSIDE RECORDS SUMMARY | 2025-02-17 17:43 | XMS_ITS | Encounter Summary ---
Author Organization [facility] Address [address], [address] [place] [address] Care Team Providers Care Software Business Analyst Name Role Phone Kymberly Gilmore MD Primary Care Provider [phone] Encounter Details Date Type Department Care Team (Late st Contact Info) Description 12/29/2023 Direct Admit Orders [facility] [address] [place] [address] [phone] Betty Richards MD [address] [place] [address] [phone] Social History Tobacco Use Types Packs/Day Years Used Date Smoking Tobacco: Every Day Cigarettes 1 10.7 Started: 2014 Smokeless Tobacco: Never Comments:started at age 13 f or 4 yrs, quit then started back in 2014 Alcohol Use Standard Drinks/Week Comments No 0 (1 standard drink = 0.6 oz pur e alcohol) [facility] Utilities Answer Date Recorded In the past 12 months has e electric, gas, oil, or water [employer] threatened to shut off services in your [...] place to sleep or slept in a usp (including now)? No 12/30/2023 Food Insecurity Answer [...] documented as of this encounter Care Teams Software Business Analyst Relationship Specialty Start Date End Date Kymberly Gilmore MD PCP - General Family Medicine 10/18/17 documented as of this encounter
--- OUTSIDE RECORDS SUMMARY | 2025-02-17 17:47 | XMS_ITS | CCD ---
Author Organization [facility] Care Team Providers Care Beater Lead Name Role Phone REJI, RONAL H. Unavailable Unavailable MAUREEN GILMORE Unavailable Unavailable REJI, RONAL H. Unavailable Unavailable REJI, RONAL H. Unavailable Unavailable REJI, RONAL H. Unavailable Unavailable MAUREEN GILMORE Unavailable Unavailable MAUREEN GILMORE Primary Care Physician MAUREEN GILMORE Referring Unavailable MAUREEN GILMORE Primary Care Unavailable NEW PARKINSON Attending Unavailable NEW PARKINSON Admitting Unavailable NILL, DR ALEXANDRA Attending Unavailable NILL, DR ALEXANDRA Admitting Unavailable BOCA RATON, DR TUYET Linn Consulting Unavailable GILMORE, DR MAUREEN Morales Primary Care Unavailable NILL, DR ALEXANDRA Consulting Unavailable REINECK, DR CHONG Schmitz Attending Unavailabl e REINECK, DR CHONG Schmitz Consulting Unavailabl e REINECK, DR CHONG Schmitz Admitting Unavailabl e GILMORE, DR MAUREEN Morales Primary Care Unavailable MARGARET PARRA Consulting Unavailable GILMORE, DR MAUREEN Morales Admitting Unavailable GILMORE, DR MAUREEN Morales Attending Unavailable GILMORE, DR MAUREEN Morales Consulting Unavailable GILMORE, DR MAURENE Morales Primary Care Unavailable IGLMORE, DR MAUREEN Morales Admitting Unavailable GILMORE, DR MAUREEN Morales Attending Unavailable GILMORE, DR MAUREEN Morales Consulting Unavailable GILMORE, DR MAUREEN Morales Primary Care Unavailable GILMORE, DR MAUREEN Morales Admitting Unavailable GILMORE, DR MAUREEN Morales Attending Unavailable GILMORE, DR MAUREEN Morales Consulting Unavailable GILMORE, DR MAUREEN Morales Primary Care Unavailable Maureen Gilmore Unavailable Otoniel Kelly Unavailable Maureen Gilmore MD Primary Care Provider Maureen Gilmore MD Primary Care Provider [phone] Yossi Hunter MD Unavailable [phone] DOROTHY SANTORO Attending Unavailable DOROTHY SANTORO Referring Unavailable DOROTHY SANTORO Referring Unavailable WANDA, DARLENE Pabon Attending Unavailable WANDA, DARLENE Pabon Referring Unavailable WANDA, DARLENE Pabon Referring Unavailable TARUN BARRETT Admitting Unavailable NBA OSCAR Referring Unavailable GILMORE, MAUREEN Primary Care Unavailable TL SALAZAR Consulting Unavailable MASHALLEE I, YAMILET Attending Unavailable MARGARET GREER Consulting Unavailable MARGARET HUA Consulting Unavailable OMAR HOOVER Consulting Unavailable ISELA HENSLEY Consulting Unavailable MASHALEH I, MOHAMMAD Consulting Unavailable THUMMALJONNA NICKERSONHEETH Consulting Unavaila MARLA SanzIKH Referring Unavailable GILMORE, MAUREEN Primary Care Unavailable SANDY RODGERS Consulting Unavailable KELI RABAGO Attending Unavailable AVASTHI, CHRISTOPHER Admitting Unavailable MALLY HOPPER Consulting Unavailable MICHAEL ARELLANO Consulting Unavailgracie e MARGARET HUA Consulting Unavailable AVASTHI, CHRISTOPHER Consulting Unavailable Cat BURKETT, Bhupinder Toth Attending Unavailable ABIOSE, OYSSI K Referring Unavailable GILMORE, MAUREEN E Primary Care Unavailable ABIOSE, YOSSI K Referring Unavailable GILMORE, MAUREEN E Primary Care Unavailable ABIOSE, YOSSI K Attending Unavailable MANDO, MAUREEN E Primary Care Unavailable ABIOSE, YOSSI K Attending Unavailable GILMORE, MAUREEN E Primary Care Unavailable ABIOSE, YOSSI K Attending Unavailable GILMORE, MAUREEN E Primary Care Unavailable ABIOSE, YOSSI K Attending Unavailable MANDO, MAUREEN E Primary Care Unavailable Maureen Gilmore MD Attending Provider Maureen Gilmore MD Primary Care Provider CRISTOBAL, OLUREMI Consulting Unavailable BLANCA, SELVON F Attending Unavailable BLANCA, SELVON F Admitting Unavailable GILMORE, MAUREEN Primary Care Unavailable Maureen Gilmore MD Primary Care Provider Thi Vidal APRN Attending Provider [phone] Isha Holley MD Attending Provider Jackson Mondragon MD Attending Provider [phone] Maureen Gilmore MD Attending Provider Alyssa Romo CMA Attending Provider UnavailNeli Go Attending Unavailable MAUREEN GILMORE Referring Unavailable Maureen Gilmore MD Primary Care Provider Leydi BURKETT, Isha Pabon Attending Provider Jackson Mondragon MD Attending Provider Mando BURKETT, Maureen Morales Attending Provider Alyssa Romo CMA Attending Provider Unavailabl e Thi Vidla APRN Attending Provider [phone] Mando BURKETT, Maureen Primary Care Provider NO FAMILY, PHYSICIAN Primary Care Provider Unava ilable Scooby BURKETT, Camden Admit Provider Scooby BURKETT, Camden Other Provider Yessenia Heart RN Other Provider Unavailable Jaimee Lim DO Other Provider Srini Castillo MD Other Provider Mayda BURKETT, Tatyana Other Provider Divya Avalos APRN Other Provider Ilda Marquez MD Other Provider Christel [facility], Katheryn Pacheco Other Provider Jose M Valentine MD Other Provider Zeyad El APRN Other Provider Anatoliy BURKETT, Palmira Attending Provider Anatoliy BURKETT, Palmira Other Provider Tiffany Guerra DO Other Provider Denis Hadley APRN Other Provider Levy Velasquez MD Other Provider Keyla BURKETT, Niya Willis Other Provider Tanner Bynum DO Other Provider Tony Contreras MD Other Provider Duglas Tracy DO Other Provider [phone] Delma Souza LPN Other Provider Unavailable Jayjay Roibns MD Other Provider Barbi Corrales Attending Provider Barbi Corrales Other Provider Richard Granger MD Other Provider Julio C Turner MD Other Provider [phone] Juice Browne MD Other Provider Martina Suarez MD Other Provider Maureen Gilmore Admitting Unavailable Maureen Gilmore Primary Care Unavailable Maureen Gilmore Attending Unavailable Camden Almodovar Admitting Unavailable Camden Almodovar Attending Unavailable Maureen Gilmore Primary Care Unavailable Yessenia Heart Consulting Unavailable Yessenia Heart Consulting Unavailable Jaimee Lim Consulting Unavailable Srini Castillo Consulting Unavailable TrabTatyana crockett Consulting Unavailable Divya Avalos Consulting Unavailable Ilda Marquez Consulting Unavailable Katheryn Kearney Consulting Unavailable Jose M Valentine Consulting Unavailable Zeyad El Consulting Unavailable Asaad, Imad Consulting Unavailable Tiffany Guerra Consulting Unavailable Denis Hadley Consulting Unavailable OleLevy pinedo Consulting Unavailable Niya aRmires Consulting Unavailable Tanner Bynum Consulting Unavailable Tony Contreras II Consulting UnavailDuglas Leblanc Consulting Unavailable Delma Souza Consulting Unavailable Jayjay Robins Consulting Unavailable Barbi Nelson Consulting Unavailable Richard Granger Consulting Unavailable Julio C Turner Consulting UnavailJuice Becerra Consulting Unavailable Martina Suarez Consulting Unavailable Diab, Isha A Admitting Unavailable Leydi Isha Cm Attending Unavailable Allergies Allergy Classification Reported Allergen(s) Allergy Type Date of Onset Reaction(s) Facility Acetaminophen (1 source) Acetaminophen Drug Allergy 09-22-19 [facility] Opioid Agonists (1 source) Codeine Drug Allergy 09-22-19 [facility] Sulfonamides (antibiotic) (1 source) Sulfonamides (Antibiotic) Drug Allergy 09-22-19 [facility] venlafaxine (1 source) venlafaxine Drug Allergy 09-22-19 [facility] (20 sources) Non-steroidal anti-inflammator y agent; Translations: [NSAIDs] Drug allergy 09-06-19 16 Unknown (qualifier value), Unknown [facility] (3 sources) Sulfonamides (Antibiotic); Translations: [sulfa drugs] Drug allergy Unknown (qualifier value) [facility] (20 sources) venlafaxine; Translations: [venlafaxine] Drug Allergy 07-16-19 19 Unknown (qualifier value), Unknown [facility] (4 sources) NSAIDs; Translations: [NSAIDS (NON-STEROIDAL ANTI-INFLAMMATOR Y DRUG)] Drug allergy (disorder) 09-06-19 16 [facility] (1 source) Tylenol-Codeine #3 Drug allergy (disorder) 01-23-20 16 [facility] (20 sources) Acetaminophen / Codeine Drug Allergy Unknown [facility] Other (20 sources) Sulfonamides (Antibiotic) Drug allergy 10-22-19 24 Unknown [facility] Other (20 sources) Codeine; Translations: [CODEINE] Drug Allergy 06-09-19 14 Other, Other (See Comments), [facility] (16 sources) Codeine Drug Allergy Unknown Vaprema Other (4 sources) patient allergy list reviewed by nurse or physicia Propensity to adverse reactions 06-09-19 14 Comment:Done Vaprema Other (4 sources) Allergies Reconciled Propensity to adverse reactions Unknown [facility]aprema Other (16 sources) Sulf-10 Drug allergy Unknown Vaprema Other (12 sources) cow milk allergenic extract; Translations: [MILK] Drug Allergy 12-11-19 23 GI Upset, Other (See Comments) [facility] Work Phone: (10 sources) Non-steroidal anti-inflammator y agent Drug Intolerance 09-06-19 16 Other, Other (See Comments) [facility] Work Phone: (19 sources) Acetaminophen; Translations: [acetaminophen] Drug Allergy 08-26-19 24 Hives, decreased respirations while sleeping [facility] (19 sources) Sulfonamides (Antibiotic); Translations: [Sulfa (Sulfonamide Antibiotics)] Allergy to substance 08-26-19 24 Hives [facility] (20 sources) NSAIDS (Non-Steroidal Anti-Inflamma; Translations: [NSAIDS (Non-Steroidal Anti-Inflamma] Allergy to substance 08-26-19 24 bleeding [facility] (2 sources) VENLAFAXINE ANALOGUES; Translations: [VENLAFAXINE ANALOGUES] Propensity to adverse reactions to drug (disorder) 10-06-19 21 [facility] (2 sources) Acetaminophen / Codeine Drug Allergy 09-06-19 16 Other (See Comments) [facility] (12 sources) Cow milk Allergy to substance 12-11-19 23 [facility] (1 source) Codeine Drug Allergy 12-31-19 25 [facility] (1 source) venlafaxine Drug Allergy 12-31-19 [facility] Medications Current Medications Medication Drug Class(es) Dates Sig (Normalized) Sig (Original) amLODIPine 5 mg oral tablet (3 sources) Dihydropyridine Calcium Channel Archie Start: 01-04-2024 take 1 tablet by mouth once daily amLODIPine (NORVASC) 5 MG tablet Take 1 tablet by mouth daily 30 tablet 3 01/06/2024 Active bisacodyl 5 mg delayed release oral tablet (2 sources) Stimulant Laxative Start: 06-08-2024 Start: 06-08-2024 carvedilol 3.125 mg oral tablet (20 sources) alpha-Adrenergic Archie, beta-Adrenergic Archie Start: 02-01-2025 Start: 12-31-2023 End: 02-26-2024 Start: 05-27-2023 End: 05-26-2024 take 3.125 mg by mouth twice daily at mealtime 3.125 mg, Oral, 2 TIMES DAILY WITH MEALS, First dose on Fri12/31/23 at 0800, Until Discontinued, Hold if SBP less than 110, heart rate less than 55 Administer with food to minimize the risk of orthostatic hypotension Coreg Not-Taking cholecalciferol 1.25 mg oral capsule (20 sources) Vitamin D Start: 03-10-2023 End: 02-01-2025 cholecalciferol (Vitamin D-3) 1.25 MG (34265 UT) capsule Twice a Week 03/10/2023 Active Start: 03-10-2023 take 1 capsule by [facility] two times weekly cholecalciferol (Vitamin D-3) 50,000 unit capsule Take 1 capsule (50,000 Units) by mouth 2 times a week. 03/10/2023 Active take 1 capsule by [facility] two times weekly Vitamin D3 1.25 MG (02045 UT) TAKE 1 CAPSULE BY MOUTH TWICE A WEEK for 85 Active cyclobenzaprine hydrochloride 10 mg oral tablet (1 source) Muscle Relaxant Start: 06-08-2024 eletriptan 40 mg oral tablet (20 sources) Serotonin-1b and Serotonin-1d Receptor Agonist Start: 11-08-2022 End: 12-25-2024 eletriptan (Relpax) 40 MG tablet 1 tablet 11/08/2022 Active Start: 11-14-2021 take 1 tablet by mouth once Re lpax 40 mg Tab 40 mg = 1 tab(s), Oral, Once, Refills(s) 0 Start Date: 11/14/21 Status: Ordered Repeat number: 1 Relpax Not-Takin g 0.4 ml enoxaparin sodium 100 mg/ml prefilled syringe (1 source) Low Molecular Weight Heparin Start: 02-01-2025 ferrous sulfate 325 mg delayed release oral tablet (2 sources) Start: 10-20-2017 take 1 tablet by mouth twice daily at mealtime ferrous sulfate 325 (65 Fe) MG EC tablet Take 1 tablet by mouth 2 times daily (with meals) 90 tablet 1 10/20/2017 Active magnesium hydroxide 80 mg/ml oral suspension (1 source) Start: 06-08-2024 ondansetron (ZOFRAN-ODT) disintegrating tablet 4 mg (1 source) Start: 06-08-2024 ondansetron (ZOFRAN-ODT) disintegrating tablet 4 mg pantoprazole 40 mg delayed release oral tablet (12 sources) Proton Pump Inhibitor Start: 02-01-2025 Start: 01-20-2024 End: 02-26-2024 Pantoprazole Discontinued MG PO January 19, 2024 11:00pm February 26, 2024 2:08pm Start: 01-20-2024 End: 02-26-2024 Pantoprazole Discontinued MG PO January 20, 2024 12:00am February 26, 2024 3:08pm Start: 01-20-2024 Pantoprazole A ctive MG PO January 20, 2024 12:00am Start: 01-05-2024 End: 06-08-2024 Start: 10-21-2017 End: 01-05-2024 take 1 tablet by mouth once daily before breakfast pantoprazole (PROTONIX) 40 MG tablet Take 1 tablet by mouth every morning (before breakfast) 30 tablet 1 10/21/2017 01/05/2024 Discontinued (Stop Taking at Discharge) pantoprazole (PROTONIX) 40 mg in sodium chloride (PF) 0.9 % 10 mL injection (1 source) Start: 01-04-2024 40 mg, IntraVE Nous, EVERY 12 HOURS, First dose on 01/04/24 at 2000, Reconstitute each 40 mg vial with 10 mL of 0.9% sodium chloride and administer each 40 mg vial over at least 2 minutes. polyethylene glycol 3350 [id number] mg powder for oral solution (1 source) Osmotic Laxative Start: 06-08-2024 microencapsulated potassium chloride 20 meq extended release oral tablet (7 sources) Start: 01-13-2025 Start: 06-10-2024 potassium chlo [...] oral capsul e (20 sources) Start: 01-06-2025 End: 01-18-2025 Start: 12-27-2024 End: 01-06-2025 Start: 12-27-2024 End: 12-30-2024 take 1 capsule by mouth twice daily Pregabalin 100 mg capsule Discontinued 100 MG PO Twice daily December 27, 2024 12:49pm December 30, 2024 12:45pm Start: 12-08-2024 End: 12-27-2024 Start: 12-31-2023 take 200 mg by mouth three times daily 200 mg, Oral, 3 TIMES DAILY RESP, First dose on Fri12/31/23 at 0800, Until Discontinued Start: 11-14-2021 End: 12-08-2024 take 2 capsules by m outh three times daily pregabalin (LYRICA) 100 MG capsule Take 2 capsules by mouth three times daily. Active Lyrica Active sertraline 100 mg oral tablet (20 sources) Serotonin Reuptake Inhibitor Start: 06-08-2024 take 200 mg by mouth once daily 200 mg, Oral, Nightly, First dose on Fri06/08/24 at 2100, Until Discontinued Start: 05-14-2024 End: 09-03-2024 Start: 02-26-2024 End: 02-26-2024 take 2 tablets by mouth three times daily Sertraline 100 mg tablet Discontinued 200 MG PO Three times daily February 26, 2024 3:10pm February 26, 2024 3:27pm Start: 02-26-2024 End: 02-26-2024 take 200 mg by mouth three times daily Sertraline Discontinued 200 MG PO Three times daily February 26, 2024 2:10pm February 26, 2024 2:27pm Start: 01-20-2024 End: 05-14-2024 Start: 12-30-2023 take 200 mg by mouth once francine y 200 mg, Oral, Nightly, First dose on Fri12/30/23 at 2345, Until Discontinued Start: 12-09-2023 End: 01-20-2024 Start: 08-19-2023 End: 12-09-2023 Start: 05-02-2023 End: 02-26-2024 sertraline (Zoloft) 100 MG t ablet Daily 05/02/2023 Active Start: 11-14-2021 End: 05-14-2024 take 2 tablets by mouth once daily Sertraline 100 mg tablet Discontinued 200 MG PO Daily 60 February 26, 2024 3:27pm May 14, 2024 10:41am Zoloft Active spironolactone 25 mg oral ta blet (1 source) Aldosterone Antagonist Start: 02-01-2025 valsartan 40 mg oral tablet (1 source) Angiotensin 2 Receptor Archie Start: 02-01-2025 Vitamin D (20 sources) Vitamin D Active Completed/Discontinued Medications Medication Drug Class(es) Dates Sig (Normalized) Sig (Original) acetaminophen 325 mg oral tablet (14 sources) Start: 06-08-2024 650 mg, Oral, EVERY 6 HOURS PRN, Starting on Fri06/08/24 at 1909, Until Discontinued, Pain Mild (1-3), Fever, Maximum dose of acetaminophen is 4000 mg from all sources in 24 hours., Post-op Start: 12-30-2023 acetaminophen (TYLENOL) tablet 650 mg take 2 tablets by mo uth every four hours as needed acetaminophen (Tylenol) 500 MG tablet Take 1,000 mg by mouth every 4 (four) hours if needed Active albuterol 0.833 mg/ml / ipratropium bromide 0.167 mg/ml inhalation solution (5 sources) Anticholinergic, beta2-Adrenergic Agonist Start: 12-13-2024 End: 12-30-2024 Start: 12-13-2024 End: 12-30-2024 take 1 mL [...] RT Bronchodilator Protocol: Yes - Inpatient Protocol ALPRAZolam 0.5 mg oral tablet (20 sources) Benzodiazepine Start: 01-13-2024 End: 12-08-2024 take 1 tablet [...] 2326, Until Discontinued, Anxiety Start: 07-23-2023 End: 01-18-2025 Start: 07-23-2023 End: 07-23-2023 take 1 tablet by mouth four times daily Alprazolam 0.5 mg tablet Discontinued 0.5 MG PO Four times daily July 23, 2023 1:00am July 23, 2023 2:08pm Start: 05-22-2023 take 1 tablet by steve th once daily ALPRAZolam (Xanax) 0.5 mg tablet Take 1 tablet (0.5 mg) by mouth once daily. 0 05/22/2023 Active Start: 11-14-2021 End: 01-06-2025 take 1 tablet by mouth every four hours ALPRAZolam (Xanax) 0.5 MG tablet Take 0.5 mg by mouth every 4 (four) hours 05/22/2023 Active aluminum & magnesium hydroxide-simethicone (MAALOX) 30 mL, lidocaine viscous hcl (XYLOCAINE) 5 mL (GI COCKTAIL) (1 source) Start: 12-30-2023 End: 12-31-2023 Oral, ONCE, On Fri12/30/23 at 2345, For 1 dose, Take 5 mL from lidocaine viscous 2% cup and mix with 30 mL of maalox and then administer. amitriptyline hydrochloride 75 mg oral tablet (20 sources) Tricyclic Antidepressant Start: 10-14-2023 End: 01-18-2025 Start: 09-22-2023 End: 10-14-2023 Start: 09-22-2023 End: 10-14-2023 take 1 tablet [...] MOUTH AT BEDTIME Start: 11-14-2021 End: 09-22-2023 Start: 01-18-2021 amitriptyline (Elavil) 75 mg tablet Take 100 mg by mouth once daily at bedtime. 01/18/2021 Active aspirin 325 mg oral tablet (4 sources) Platelet Aggregation Inhibitor, Nonsteroidal Anti-inflammatory Drug Start: 12-13-2024 End: 12-30-2024 atenolol 100 mg oral tablet (6 sources) [...] spasms.. 01/05/2024 Discontinued (Stop Taking at Discharge) ceFAZolin (ANCEF) 2,000 mg in sterile water 20 mL IV syringe (1 source) Start: 06-08-2024 End: 06-09-2024 2,000 mg, IntraVENous, EVERY 8 HOURS, 2 doses, First dose on Fri06/08/24 at 2300, Last dose on Fri06/09/24 at 0700, Antimicrobial Indications: Surgical Prophylaxis, Administer over 5 mins. Reconstitute 2 g vial with 20 mL Sterile Water. Withdraw entire contents., Post-op cephalexin 500 mg oral capsule (12 sources) Cephalosporin Antibacterial Start: 01-30-2024 End: 02-26-2024 ciprofloxacin 250 mg oral tablet (14 sources) Quinolone Antimicrobial Start: 04-30-2024 End: 07-27-2024 Start: 11-14-2022 Ciprofloxacin HCl 0.3 % 1 application into the lower eyelid of affected eye Ophthalmic tid for 5 day(s) Oct, Active Start: 11-14-2022 clindamycin 150 mg oral caps ule (13 sources) Lincosamide Antibacterial Start: 12-18-2023 End: 01-20-2024 docusate sodium 50 mg / david osides, fdc 8.6 mg oral tablet (5 sources) Start: 12-13-2024 End: 12-30-2024 Start: 12-13-2024 End: 12-30-2024 take 1 tablet by mouth twice daily Sennosides-Docusate Sodium 8.6-50 mg tablet Discontinued 1 TAB-CAP PO Twice daily December 13, 2024 12:00am December 30, 2024 12:45pm Start: 06-08-2024 take 1 tablet by steve twice daily 1 tablet, Oral, 2 TIMES DAILY, First dose on Fri06/08/24 at 2100, Until Discontinued, Post-op 2 ml fentaNYL 0.05 mg/ml injection (5 sources) Opioid Agonist Start: 06-08-2024 End: 06-08-2024 1 dose, Starting on Fri06/08/24 at 1748, Until Fri06/08/24 at 1747, Thi Jones: carlosinet override, Thi Jones: cabinet override Start: 06-08-2024 [...] Starting on Corinne 01/01/24 at 1737, Until Corinne 01/01/24 at 1826, Intra-op Start: 01-01-2024 End: 01-01-2024 take 1 dose by mouth every hour 50 mcg, IntraVENous, ONCE, 1 dose, On Corinne 01/01/24 at 1630, If oral and IV narcotics ordered, use oral first and only use IV if oral is ineffective or cannot take oral. Do Not give oral and IV within 1 hour of each other unless specifically ordered. Start: 01-01-2024 End: 01-01-2024 50 mcg, IntraVENous, EVERY 5 MIN PRN, 4 doses, Starting on Fri01/01/24 at 0758, Until Fri01/01/24 at 0954, Pain Severe (7-10), Phase I [...] dose, Starting on Fri01/01/24 at 1849, Until Corinne 01/01/24 at 1850, Other Start: 01-01-2024 End: 01-01-2024 take 1 dose intravenously once 100 mL, IntraVENous, IM G ONCE PRN, 1 dose, Starting on Corinne 01/01/24 at 1531, Until Corinne 01/01/24 at 1533, Other ketamine 10 mg/ml injectable [...] not administer if HR less than 60 24 hr metoprolol succinate 5 0 mg extended release oral tablet (20 sources) beta-Adrenergic Archie Start: 10-20-2024 End: 02-01-2025 Start: 05-07-2024 End: 05-07-2025 take 1 tablet [...] Discontinued (Therapy completed) Start: 09-12-2023 End: 01-20-2024 Start: 09-12-2023 End: 01-20-2024 take 1 tablet [...] 180 tablet 3 07/01/2023 04/07/2024 Discontinued (Reorder) 2 ml midazolam 1 mg/ml injection (2 [...] mg, IntraVENous, ONCE, 1 d ose, On Fri01/01/24 at 0845 Start: 10-14-2023 End: 11-10-2023 ondansetron ODT (Zofran-ODT) 4 MG disintegrating tablet Every 12 hours 10/14/2023 Active oxyCODONE hydrochloride 10 m g oral tablet (20 sources) Opioid Agonist Start: 12-08-2024 End: 01-18-2025 Start: 04-21-2024 End: 12-08-2024 Start: 04-08-2024 End: 04-08-2024 Start: 04-08-2024 End: 04-08-2024 Start: 12-30-2023 oxyCODONE (ANIRUDH ICODONE) immediate release tablet 15 mg Start: 09-09-2023 End: 12-08-2024 Start: 09-09-2023 End: 09-22-2023 take 1 tablet by mouth every six hours as needed for pain Oxycodone 20 mg tablet Discontinued 20 MG PO Every 6 hours as needed for pain September 15, 2023 September 22, 2023 5:33pm Start: 08-07-2023 End: 09-09-2023 Start: 05-01-2023 take 1 tablet by steve [...] 2023 12:17pm take 2 tablets by mo [facility] every four hours as needed for pain oxyCODONE (OXY-IR) 15 MG immediate release tablet Take 2 tablets by mouth every 4 hours as needed for Pain. Active pantoprazole (PROTONIX) 80 mg in sodium chloride 0.9 % 100 mL infusion (2 sources) Start: 01-01-2024 End: 01-04-2024 take 8 mg intravenously every hour 8 mg/hr (10 mL/hr), IntraVENous, CONTINUOUS, Starting on Fri01/01/24 at 1015, Until Fri01/04/24 at 1014 Start: 12-31-2023 End: 01-01-2024 take [...] 1 dose sucralfate 1000 mg oral tablet (16 sources) Aluminum Complex Start: 01-03-2024 End: 02-26-2024 SUMAtriptan 50 mg oral tablet (2 sources) [...] (RELPAX). traZODone hydrochloride 50 mg oral tablet (4 sources) Serotonin Reuptake Inhibitor Start: 12-13-2024 End: 12-30-2024 vitamin B12 (1 source) Vitamin B12 Start: 12-31-2023 End: 12-31-2023 inject 1 dose by intramuscular injection once 1,000 mcg, IntraMUSCular , ONCE, 1 dose, On Fri12/31/23 at 0900 Vitamin D 50,000 intl units (1.25 mg) oral capsule (2 sources) Start: 11-14-2021 take 1 capsule by mouth once Vitamin D 50,000 intl units (1.25 mg) oral capsule 50,000 International _Unit = 1 cap(s), Oral, MonFri, Refills(s) 0 [...] Translations: [Acute bronchitis, unspecified] Onset: 4 Episodic Acute posthemorrhagic anemia (6 sources) Acute posthemorrhagic anemia; Translations: [Acute posthemorrhagic anemia] Onset: 8 01-01-2024 Episodic Administrative/social admission (19 sources) Other reduced mobility; Translations: [Impaired mobility and activities of daily living] Onset: 5 10-16-2023 Episodic Anxiety disorders (20 sources) Anxiety; [...] Translations: [Palpitations] Episodic Chronic ulcer of skin (20 sources) Disorder of elbow; Translations: [Non-pressure chronic ulcer of skin of other sites with unspecified severity] 08-27-2023 Chronic Coronary atherosclerosis and other heart disease (8 sources) Preinfarction syndrome; Translations: [Unstable angina] Onset: 4 07-01-2023 Chronic Deficiency and other anemia (13 sources) Anemia due to blood loss; Translations: [...] deficiency] 11-14-2021 Episodic Deficiency and other anemia (9 sources) Anemia; Translations: [Anemia, unspecified] 12-08-2024 Episodic Deficiency and other anemia (1 source) Iron deficiency anemia, unspecified Episodic Deficiency and other anemia (1 source) Anemia, unspecified; Translations: [Anemia, unspecified] Onset: 5 Episodic Diseases of mouth; excluding dental (16 sources) Parotitis; Translations: [Acute sialoadenitis] 12-18-2023 Episodic Esophageal disorders (10 sources) Gastroesophageal reflux disease; Translations: [Gastroesophageal reflux disease without esophagitis] Onset: 7 11-14-2021 Chronic Essential hypertension (20 sources) Essential hypertension; Translations: [Essential (primary) hypertension] Onset: 4 05-27-2023 Chronic Fracture of lower limb (20 sources) Closed fracture of ankle; Translations: [Other fracture of left lower leg, subsequent encounter for closed fracture with routine healing] Onset: 8 Episodic Fracture of lower limb (3 sources) Closed fracture of right ankle; Translations: [Other fracture of right lower leg, initial encounter for closed fracture] Onset: 5 01-27-2025 Episodic Gastroduodenal ulcer (except hemorrhage) (20 sources) Chronic gastrojejunal ulcer; 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] Onset: 8 01-20-2024 Chronic Gastroduodenal ulcer (except hemorrhage) (5 sources) H/O: peptic ulcer; Translations: [Acute gastrojejunal ulcer] Onset: 4 11-14-2021 Episodic Gastrointestinal hemorrhage (5 sources) Gastrointestinal hemorrhage; Translations: [Chronic or unspecified gastrojejunal ulcer with hemorrhage] Onset: 8 01-09-2024 Chronic Gastrointestinal hemorrhage (20 sources) Gastrointestinal hemorrhage; Translations: [Gastrointestinal hemorrhage, unspecified] Onset: 8 Episodic Genitourinary symptoms and ill-defined conditions (10 sources) Dysuria; Translations: [Dysuria] 04-29-2024 Episodic Headache; including migraine (20 sources) Migraine; Translations: [Migraine, unspecified, not intractable, without status migrainosus] 11-14-2021 Chronic Heart valve disorders (7 sources) Mitral valve regurgitation; Translations: [Mitral valve prolapse] Onset: 4 11-14-2021 Chronic Intestinal infection (4 sources) Clostridial gastroenteritis; Translations: [Enterocolitis due to Clostridium difficile, not specified as recurrent] Episodic Malaise and fatigue (16 sources) Asthenia; Translations: [Weakness] 01-20-2024 Episodic Mood [...] 11-14-2021 Chronic Other aftercare (3 sources) Other watcher automat long goods (current) drug therapy; Translations: [OTH RESIDENTIAL CURRENT DRUG THERAPY] Onset: 2 Episodic Other aftercare (18 sources) Patient encounter status; Translations: [Encounter for palliative care] 09-10-2023 Episodic Other aftercare (3 sources) Encounter for palliative care; Translations: [Encounter for palliative care] 09-12-2023 Episodic Other and ill-defined heart disease (2 sources) Mural thrombus of left ventricle; 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, not elsewhere classified] 01-25-2025 Chronic Other and ill-defined heart disease (2 sources) Takotsubo cardiomyopathy; Translations: [Takotsubo syndrome] 01-28-2025 Chronic Other and ill-defined heart disease (1 source) Intracardiac thrombosis, not elsewhere classified; 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, not elsewhere classified] Onset: 5 Chronic Other and ill-defined heart disease (1 source) Takotsubo syndrome; Translations: [Takotsubo syndrome] Onset: 5 Chronic Other circulatory disease (4 sources) Elevated blood-pressure reading without diagnosis of hypertension; Translations: [Elevated blood-pressure reading, without diagnosis of hypertension] Episodic Other connective tissue disease (2 sources) Pain in left leg Episodic Other connective tissue disease (7 sources) Pain in left foot; Translations: [Pain in limb] Onset: 5 Episodic Other connective tissue disease (8 sources) Pain in limb; Translations: [Pain in unspecified limb] Onset: 4 Episodic Other connective tissue disease (9 sources) Pain in left foot; Translations: [Pain in left foot] 02-03-2024 Episodic Other connective tissue disease (1 source) Other specified soft tissue disorders Episodic Other connective tissue disease (19 sources) Peripheral neuropathic pain; Translations: [Neuralgia and [...] procedure; Translations: [Bariatric surgery status] Episodic Other gastrointestinal disorders (1 source) Bariatric surgery status; Translations: [Bariatric surgery status] Onset: 5 Episodic Other lower respiratory disease (1 source) Dyspnea, unspecified Episodic Other nervous system disorders (2 sources) Peripheral nerve disease 11-14-2021 Chronic Other nervous system disorders (4 sources) Hereditary peripheral neuropathy; 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] Onset: 5 Chronic Other nervous system disorders (20 sources) [...] [Endocarditis, valve unspecified] Onset: 4 05-27-2023 Chronic Phlebitis; thrombophlebitis and thromboembolism (3 sources) Deep venous thrombosis; Translations: [Acute embolism and thrombosis of unspecified deep veins of unspecified lower extremity] Onset: 5 01-26-2025 Episodic Pulmonary heart disease (3 sources) Chronic pulmonary embolism; Translations: [Chronic pulmonary embolism] Onset: 5 01-28-2025 Chronic Residual codes; unclassified (2 sources) Insomnia 11-14-2021 Episodic Residual codes; unclassified (6 sources) Tobacco user; Translations: [Tobacco use] Onset: 7 11-14-2021 Episodic Residual codes; unclassified (4 sources) Family history of diabetes mellitus; Translations: [Family history of diabetes mellitus] Episodic Residual codes; unclassified (19 sources) Edema; Translations: [Edema, unspecified] 08-26-2023 Episodic Residual codes; unclassified (4 sources) Edema, unspecified; Translations: [Edema] 08-26-2023 Episodic Residual codes; unclassified (1 source) Preoperative state 04-07-2024 Episodic Residual codes; unclassified (1 source) Other specified health status; Translations: [Other specified health status] Onset: 5 Episodic Skin and subcutaneous tissue infections (14 sources) Cellulitis of left foot; Translations: [Cellulitis [...] Classification Problem Date Documented Da te Episodic/Chronic Bacterial infection; unspecified site (4 sources) Bacterial [...] ANEMIA DUE IF DEF] Onset: 12-05-2021 Episodic Fluid and electrolyte disorders (20 sources) Hypo-osmolality and hyponatremia; Translations: [Dehydration] Onset: 10-18-2017 Episodic Mood disorders (1 source) Mood disorders Nonspecific chest pain (5 sources) Chest pain; Translations: [Chest pain, unspecified] Onset: 01-04-2016 01-09-2024 Episodic Nutritional deficiencies (2 sources) Iron deficiency; Translations: [Iron deficiency] Onset: 10-19-2017 10-19-2017 Episodic Other aftercare (1 source) snf (current) use of aspirin; Translations: [RESIDENTIAL CURRENT USE OF ASPIRIN] Onset: 11-06-2021 Episodic Other aftercare (3 sources) Prescribed medication regimen behavior finding; Translations: [snf (current) use of opiate analgesic] Onset: 01-01-2024 01-01-2024 Episodic Other circulatory disease (2 sources) Orthostatic hypotension; Translations: [Orthostatic hypotension] Onset: 10-18-2017 10-18-2017 Episodic Other circulatory disease (3 sources) Low blood pressure; Translations: [Other hypotension] Onset: 10-18-2017 01-01-2024 Episodic Other connective tissue disease (4 sources) Pain in forearm; Translations: [Pain in joint, forearm] Onset: 03-26-2018 Episodic Other lower respiratory disease (16 sources) Dyspnea; Translations: [Shortness of breath] Onset: 05-27-2023 05-27-2023 Episodic Other lower respiratory disease (2 sources) Shortness of breath; Translations: [Shortness of breath] Onset: 05-27-2023 Episodic Other non-traumatic joint disorders (8 sources) Arthralgia of the lower leg; Translations: [Pain in right knee] Onset: 09-21-2013 Episodic Residual codes; unclassified (4 sources) C/O - a back symptom; Translations: [Other symptoms referable to back] Onset: 05-20-2017 Episodic Shock (2 sources) Hypovolemic shock; Translations: [Hypovolemic shock] Onset: 10-18-2017 10-18-2017 Episodic Substance-related disorders (4 sources) Drug-induced insomnia; Translations: [Insomnia due to medical condition classified elsewhere] Onset: 05-20-2017 Episodic Syncope (5 sources) Syncope and collapse; Translations: [Syncope] Onset: 12-31-2023 12-31-2023 Episodic Unclassified (2 sources) Low back pain, unspecified M54.50 Results Test Name Value Interpretation Reference Range Facil ity PROTEIN C ANTIGENon 02-05-20 25 PROTEIN C ANTIGEN 70 % 60 - 150 % [facility] Comment on above: Performed at: [address] [id number] Telehealth Nurse: Ab Giordano MD, Phone: [phone] [facility] PROT ELECTROPHOR W/REFLEX IF Constantin 02-02-2025 Albumin [Mass/Vol] 2.4 g/dL 2.9 - 4.4 g/dL NO [facility] Albumin/Globulin [Mass ratio] 0.9 {ratio} 0.7 - 1.7 [facility] [id number] 0.2 g/dL 0.0 - 0.4 g/dL [facility] [id number] 0.7 g/dL 0.4 - 1.0 g/dL [facility] BETA GLOBULIN 1 g/dL 0.7 - 1.3 g/dL [facility] GAMMA GLOBULIN 0.8 g/dL 0.4 - 1.8 g/dL [facility] Globulin (S) [Mass/Vol] 2.7 g/dL 2.2 - 3.9 g/dL [facility] IMMUNOFIXATION REFLEX . . [facility] IMMUNOFIXATION RESULT Comment: . [facility] Comment on above: Presence of monoclon al protein is unclear at this time. Suggest repeat in 3 to 6 months if clinically indicated. Performed at: [facility] [id number] Telehealth Nurse: Marcelo Parikh PhD, Phone: [phone] M-SPIKE Comment: Not Observed g/dL [facility] Comment on above: SPE shows asymmetric al gamma. Protein [Mass/Vol] 5.1 g/dL 6.0 - 8.5 g/dL NO [facility] SPE-NOTE Comment . [facility] Comment on above: Protein electrophore sis scan will follow via computer, mail, or educational speech language clinician delivery. [facility] Complete Blood Count Auto Di ffon 02-01-2025 Basophils (Bld) [#/Vol] 0.0 10*3/uL Normal 0.0-0.2 [facility] Comment on above: Result Comment: PERF ORMED BY: [place] [address] PATHOLOGIST [employer] PROFESSIONAL CUCO BLOUNT M.D. Performed By: #### C BC CMP, MG #### [address] Basophils/100 WBC (Bld) 0.8 % Normal . [facility] Comment on above: Performed By: #### C BC CMP, MG #### [address] Eosinophils (Bld) [#/Vol] 0.0 10*3/uL Normal 0.0-0.45 [facility] Comment on above: Performed By: #### C BC CMP, MG #### [address] Eosinophils/100 WBC (Bld) 0.8 % Normal . [facility] Comment on above: Performed By: #### C BC, CMP, MG #### [address] Erythrocyte distribution width (RBC) [Ratio] 21.8 % High 11.9-15.3 [facility] Comment on above: Performed By: #### C BC, CMP, MG #### [address] Hematocrit (Bld) [Volume fraction] 28.5 % Low 34.0-46.4 [facility] Comment on above: Performed By: #### C BC, CMP, MG #### [address] Hemoglobin (Bld) [Mass/Vol] 9.3 g/dL Low 11.8-15.4 [facility] Comment on above: Performed By: #### C BC, CMP, MG #### [address] Lymphocytes (Bld) [#/Vol] 1.4 10*3/uL Normal 1.00-4.8 [facility] Comment on above: Performed By: #### C BC, CMP, MG #### [address] Lymphocytes/100 WBC (Bld) 25.6 % Normal . [facility] Comment on above: Performed By: #### C BC, CMP, MG #### [address] MCH (RBC) [Entitic mass] 27.8 pg Normal 24.7-34.3 [facility] Comment on above: Performed By: #### C BC, CMP, MG #### [address] MCV (RBC) [Entitic vol] 85.1 fL Normal 80-100 [facility] Comment on above: Performed By: #### C BC, CMP, MG #### [address] Mean Corpuscular HGB Conc 32.7 g/dL Normal 32.0-35.0 [facility] Comment on above: Performed By: #### C BC, CMP, MG #### [address] Monocytes (Bld) [#/Vol] 0.3 10*3/uL Normal 0.0-0.8 [facility] Comment on above: Performed By: #### C BC, CMP, MG #### [address] Monocytes/100 WBC (Bld) 5.9 % Normal . [facility] Comment on above: Performed By: #### C BC, CMP, MG #### [address] [place] [address] [place] Neutrophils (Bld) [#/Vol] 3.5 10*3/uL Normal 1.8-7.7 [facility] Comment on above: Performed By: #### C BC, CMP, MG #### [facility] [address] [place] [address] [place] Neutrophils/100 WBC (Bld) 66.9 % Normal . [facility] Comment on above: Performed By: #### C BC, CMP, MG #### [address] NRBC% 0.1 /100{WBC} Normal 0-0.5 [facility] Comment on above: Performed By: #### C BC, CMP, MG #### [address] Platelet mean volume (Bld) [Entitic vol] 7.9 fL Normal 6.3-10.7 [facility] Comment on above: Performed By: #### C BC, CMP, MG #### [address] Platelets (Bld) [#/Vol] 363 10*3/uL Normal 150-450 [facility] Comment on above: Performed By: #### C BC, CMP, MG #### [address] RBC (Bld) [#/Vol] 3.35 10*6/uL Low 3.60-5.00 [facility] Comment on above: Performed By: #### C BC, CMP, MG #### [place] [address] [place] WBC (Bld) [#/Vol] 5.3 10*3/uL Normal 3.8-11.6 [facility] Comment on above: Performed By: #### C BC, CMP, MG #### [address] White Blood Count 5.3 [CFU]/mL Normal 3.8-11.6 [facility] Comment on above: Performed By: #### C BC, CMP, MG #### [facility] [address] Comprehensive Metabolic Pane doris 02-01-2025 Albumin [Mass/Vol] 2.6 g/dL Low 3.5-5.7 [facility] Comment on above: Performed By: #### C BC, CMP, MG #### [facility] [address] Albumin/Globulin [Mass ratio] 0.9 {ratio} Normal [facility] Comment on above: Performed By: #### C BC, CMP, MG #### [facility] [address] ALP [Catalytic activity/Vol] 101 U/L Normal 34-104 [facility] Comment on above: Performed By: #### C BC, CMP, MG #### [facility] [address] ALT [Catalytic activity/Vol] 4 U/L Low 7-52 [facility] Comment on above: Performed By: #### C BC, CMP, MG #### [facility] [address] [place] [address] [place] Anion gap [Moles/Vol] 9.4 mmol/L Normal 6.0-15.0 [facility] Comment on above: Performed By: #### C BC, CMP, MG #### [address] AST [Catalytic activity/Vol] 28 U/L Normal 13-39 [facility] Comment on above: Performed By: #### C BC, CMP, MG #### [facility] [address] [place] [id number] [place] Bilirubin [Mass/Vol] 0.4 mg/dL Normal 0.3-1.0 [facility] Comment on above: Performed By: #### C BC, CMP, MG #### [facility] [address] Calcium [Mass/Vol] 8.3 mg/dL Low 8.6-10.3 [facility] Comment on above: Performed By: #### C BC, CMP, MG #### [facility] [address] [place] [address] [place] Chloride [Moles/Vol] 104 mmol/L Normal 98-107 [facility] Comment on above: Performed By: #### C BC, CMP, MG #### [facility] [address] [place] [address] [place] CO2 [Moles/Vol] 29.0 mmol/L Normal 21.0-31.0 [facility] Comment on above: Performed By: #### C BC, CMP, MG #### [facility] [address] Creatinine [Mass/Vol] 0.42 mg/dL Low 0.60-1.20 [facility] Comment on above: Performed By: #### C BC, CMP, MG #### [facility] [address] [place] [address] [place] Creatinine Clr Calc Pharmacy 160.51 Normal [facility] Comment on above: Performed By: #### C BC, CMP, MG #### [facility] [address] [place] [address] [place] GFR/1.73 sq M.predicted MDRD (S/P/Bld) [Vol rate/Area] mL/min/{1.73_m2} Normal [facility] Comment on above: Performed By: #### C BC, CMP, MG #### [facility] [address] [place] [address] [place] Globulin (S) [Mass/Vol] 2.9 g/dL Normal [facility] Comment on above: Performed By: #### C BC, CMP, MG #### [facility] [address] [place] [address] [place] Glucose [Mass/Vol] 86 mg/dL Normal 70-100 [facility] Comment on above: Result Comment: [place] Glucose Reference Range is dependent on time and content of last meal. Glucose of more than 200 mg/dL in a nonstressed, ambulatory subject supports the diagnosis of Diabetes Mellitus. ADA recommended reference range Performed By: #### C BC, CMP, MG #### [address] Potassium [Moles/Vol] 3.4 mmol/L Low 3.5-5.1 [facility] Comment on above: Performed By: #### C BC, CMP, MG #### [address] Protein [Mass/Vol] 5.5 g/dL Low 6.4-8.9 [facility] Comment on above: Performed By: #### C BC, CMP, MG #### [address] Sodium [Moles/Vol] 139 mmol/L Normal 136-145 [facility] Comment on above: Performed By: #### C BC, CMP, MG #### [address] Urea nitrogen [Mass/Vol] 3 mg/dL Low 7-25 [facility] Comment on above: Performed By: #### C BC, CMP, MG #### [address] Magnesiumon 02-01-2025 Magnesium [Mass/Vol] 1.7 mg/dL Low 1.9-2.7 [facility] Comment on above: Result Comment: PERF ORMED BY: [place] [address] PATHOLOGIST [employer] PROFESSIONAL CUCO BLOUNT M.D. Performed By: #### C BC, CMP, MG #### [address] PROTEIN ELECTRO, RANDOM URIN Constantin 02-01-2025 ALBUMIN, URINE 34 % . [facility] [id number], URINE 4.2 % . [facility] [id number], URINE 8.4 % . [facility] BETA GLOBULIN, URINE 22.3 % . [facility] GAMMA GLOBULIN, URINE 31 % . [facility] M-SPIKE % Not Observed Not Observed % [facility] PLEASE NOTE: Comment . [facility] Comment on above: Protein electrophore sis scan will follow via computer, mail, or educational speech language clinician delivery. Performed at: [address], [place] [id number] Telehealth Nurse: Marcelo Parikh PhD, Phone: [phone] Protein (U) [Mass/Vol] 5.7 mg/dL Not Estab. [facility] ANTITHROMBIN ACTIVITYon ANTITHROMBIN ACTIVITY 97 % 75 - 135 % [facility] Comment on above: Direct Xa inhibitor anticoagulants such as rivaroxaban, apixaban and edoxaban will lead to spuriously elevated antithrombin activity levels possibly masking a deficiency. Performed at: [facility] [address] [id number] Telehealth Nurse: Ab Giordano MD, Phone: [phone] Complete Blood Count Auto Di ffon 01-31-2025 Basophils (Bld) [#/Vol] 0.1 10*3/uL Normal 0.0-0.2 [facility] Comment on above: Order Comment: DRAW ALL TIMED LABS AT 0500 Result Comment: PERF ORMED BY: [place] [address] PATHOLOGIST [employer] PROFESSIONAL CUCO BLOUNT M.D. Performed By: #### C BC, PT #### [address] Basophils/100 WBC (Bld) 1.4 % Normal . [facility] Comment on above: Order Comment: DRAW ALL TIMED LABS AT 0500 Performed By: #### C BC, PT #### [address] Eosinophils (Bld) [#/Vol] 0.1 10*3/uL Normal 0.0-0.45 [facility] Comment on above: Order Comment: DRAW ALL TIMED LABS AT 0500 Performed By: #### C BC, PT #### [address] Eosinophils/100 WBC (Bld) 1.2 % Normal . [facility] Comment on above: Order Comment: DRAW ALL TIMED LABS AT 0500 Performed By: #### C BC, PT #### [address] Erythrocyte distribution width (RBC) [Ratio] 22.4 % High 11.9-15.3 [facility] Comment on above: Order Comment: DRAW ALL TIMED LABS AT 0500 Performed By: #### C BC, PT #### [address] Hematocrit (Bld) [Volume fraction] 27.3 % Low 34.0-46.4 [facility] Comment on above: Order Comment: DRAW ALL TIMED LABS AT 0500 Performed By: #### C BC, PT #### [address] Hemoglobin (Bld) [Mass/Vol] 8.9 g/dL Low 11.8-15.4 [facility] Comment on above: Order Comment: DRAW ALL TIMED LABS AT 0500 Performed By: #### C BC, PT #### [address] Lymphocytes (Bld) [#/Vol] 1.3 10*3/uL Normal 1.00-4.8 [facility] Comment on above: Order Comment: DRAW ALL TIMED LABS AT 0500 Performed By: #### C BC, PT #### [address] Lymphocytes/100 WBC (Bld) 28.6 % Normal . [facility] Comment on above: Order Comment: DRAW ALL TIMED LABS AT 0500 Performed By: #### C BC, PT #### [address] MCH (RBC) [Entitic mass] 27.7 pg Normal 24.7-34.3 [facility] Comment on above: Order Comment: DRAW ALL TIMED LABS AT 0500 Performed By: #### C BC, PT #### [place] [id number] [place] MCV (RBC) [Entitic vol] 85.3 fL Normal 80-100 [facility] Comment on above: Order Comment: DRAW ALL TIMED LABS AT 0500 Performed By: #### C BC, PT #### [address] Mean Corpuscular HGB Conc 32.5 g/dL Normal 32.0-35.0 [facility] Comment on above: Order Comment: DRAW ALL TIMED LABS AT 0500 Performed By: #### C BC, PT #### [address] Monocytes (Bld) [#/Vol] 0.3 10*3/uL Normal 0.0-0.8 [facility] Comment on above: Order Comment: DRAW ALL TIMED LABS AT 0500 Performed By: #### C BC, PT #### [facility] [address] [place] [address] [place] Monocytes/100 WBC (Bld) 7.0 % Normal . [facility] Comment on above: Order Comment: DRAW ALL TIMED LABS AT 0500 Performed By: #### C BC, PT #### [address] Neutrophils (Bld) [#/Vol] 2.8 10*3/uL Normal 1.8-7.7 [facility] Comment on above: Order Comment: DRAW ALL TIMED LABS AT 0500 Performed By: #### C BC, PT #### [place] [address] [place] Neutrophils/100 WBC (Bld) 61.8 % Normal . [facility] Comment on above: Order Comment: DRAW ALL TIMED LABS AT 0500 Performed By: #### C BC, PT #### [place] [address] [place] NRBC% 0.1 /100{WBC} Normal 0-0.5 [facility] Comment on above: Order Comment: DRAW ALL TIMED LABS AT 0500 Performed By: #### C BC, PT #### [place] [address] [place] Platelet mean volume (Bld) [Entitic vol] 7.9 fL Normal 6.3-10.7 [facility] Comment on above: Order Comment: DRAW ALL TIMED LABS AT 0500 Performed By: #### C BC, PT #### [place] [id number] [place] Platelets (Bld) [#/Vol] 358 10*3/uL Normal 150-450 [facility] Comment on above: Order Comment: DRAW ALL TIMED LABS AT 0500 Performed By: #### C BC, PT #### [facility] [address] [place] [id number] [facility] RBC (Bld) [#/Vol] 3.19 10*6/uL Low 3.60-5.00 [facility] Comment on above: Order Comment: DRAW ALL TIMED LABS AT 0500 Performed By: #### C BC, PT #### [address] WBC (Bld) [#/Vol] 4.5 10*3/uL Normal 3.8-11.6 [facility] Comment on above: Order Comment: DRAW ALL TIMED LABS AT 0500 Performed By: #### C BC, PT #### [address] White Blood Count 4.5 [CFU]/mL Normal 3.8-11.6 [facility] Comment on above: Order Comment: DRAW ALL TIMED LABS AT 0500 Performed By: #### C BC, PT #### [address] Comprehensive Metabolic Pane doris 01-31-2025 Albumin [Mass/Vol] 2.5 g/dL Low 3.5-5.7 [facility] Comment on above: Order Comment: DRAW ALL TIMED LABS AT 0500 Performed By: #### A DDONUAPLUS, CUU #### [place] [id number] [facility] Albumin/Globulin [Mass ratio] 0.9 {ratio} Normal [facility] Comment on above: Order Comment: DRAW ALL TIMED LABS AT 0500 Performed By: #### A DDONUAPLUS, CUU #### [place] [id number] [facility] ALP [Catalytic activity/Vol] 100 U/L Normal 34-104 [facility] Comment on above: Order Comment: DRAW ALL TIMED LABS AT 0500 Performed By: #### A DDONUAPLUS, CUU #### [facility] [address] [id number] [place] ALT [Catalytic activity/Vol] 5 U/L Low 7-52 [facility] Comment on above: Order Comment: DRAW ALL TIMED LABS AT 0500 Performed By: #### A DDONUAPLUS, CUU #### [place] [id number] [place] Anion gap [Moles/Vol] 9.6 mmol/L Normal 6.0-15.0 [facility] Comment on above: Order Comment: DRAW ALL TIMED LABS AT 0500 Performed By: #### A DDONUAPLUS, CUU #### [place] [address] [place] AST [Catalytic activity/Vol] 30 U/L Normal 13-39 [facility] Comment on above: Order Comment: DRAW ALL TIMED LABS AT 0500 Performed By: #### A DDONUAPLUS, CUU #### [place] [address] [place] Bilirubin [Mass/Vol] 0.4 mg/dL Normal 0.3-1.0 [facility] Comment on above: Order Comment: DRAW ALL TIMED LABS AT 0500 Performed By: #### A DDONUAPLUS, CUU #### [place] [id number] [place] Calcium [Mass/Vol] 8.0 mg/dL Low 8.6-10.3 [facility] Comment on above: Order Comment: DRAW ALL TIMED LABS AT 0500 Performed By: #### A DDONUAPLUS, CUU #### [place] [id number] [place] Chloride [Moles/Vol] 104 mmol/L Normal 98-107 [facility] Comment on above: Order Comment: DRAW ALL TIMED LABS AT 0500 Performed By: #### A DDONUAPLUS, CUU #### [place] [id number] [place] CO2 [Moles/Vol] 29.6 mmol/L Normal 21.0-31.0 [facility] Comment on above: Order Comment: DRAW ALL TIMED LABS AT 0500 Performed By: #### A DDONUAPLUS, CUU #### [facility] [address] [id number] [place] Creatinine [Mass/Vol] 0.37 mg/dL Low 0.60-1.20 [facility] Comment on above: Order Comment: DRAW ALL TIMED LABS AT 0500 Performed By: #### A DDONUAPLUS, CUU #### [facility] [address] [id number] [place] Creatinine Clr Calc Pharmacy 181.02 Normal [facility] Comment on above: Order Comment: DRAW ALL TIMED LABS AT 0500 Performed By: #### A DDONUAPLUS, CUU #### [facility] [address] [id number] [place] GFR/1.73 sq M.predicted MDRD (S/P/Bld) [Vol rate/Area] mL/min/{1.73_m2} Normal [facility] Comment on above: Order Comment: DRAW ALL TIMED LABS AT 0500 Performed By: #### A DDONUAPLUS, CUU #### [facility] [address] [id number] [place] Globulin (S) [Mass/Vol] 2.7 g/dL Normal [facility] Comment on above: Order Comment: DRAW ALL TIMED LABS AT 0500 Performed By: #### A DDONUAPLUS, CUU #### [facility] [address] [id number] [place] Glucose [Mass/Vol] 84 mg/dL Normal 70-100 [facility] Comment on above: Order Comment: DRAW ALL TIMED LABS AT 0500 Result Comment: [place] Glucose Reference Range is dependent on time and content of last meal. Glucose of more than 200 mg/dL in a nonstressed, ambulatory subject supports the diagnosis of Diabetes Mellitus. ADA recommended reference range Performed By: #### A DDONUAPLUS, CUU #### [facility] [address] [id number] [place] Potassium [Moles/Vol] 3.2 mmol/L Low 3.5-5.1 [facility] Comment on above: Order Comment: DRAW ALL TIMED LABS AT 0500 Performed By: #### A DDONUAPLUS, CUU #### [facility] [address] Protein [Mass/Vol] 5.2 g/dL Low 6.4-8.9 [facility] Comment on above: Order Comment: DRAW ALL TIMED LABS AT 0500 Performed By: #### A DDONUAPLUS, CUU #### [facility] [address] Sodium [Moles/Vol] 140 mmol/L Normal 136-145 [facility] Comment on above: Order Comment: DRAW ALL TIMED LABS AT 0500 Performed By: #### A DDONUAPLUS, CUU #### [facility] [address] Urea nitrogen [Mass/Vol] 3 mg/dL Low 7-25 [facility] Comment on above: Order Comment: DRAW ALL TIMED LABS AT 0500 Performed By: #### A DDONUAPLUS, CUU #### [facility] [address] DRVVT WITH REFLEXon 02-01-20 25 DILUTE RUSSELLS VIPER VENOM 40.8 0.0 - 47.0 [facility] INTERPRETATION Comment: . [facility] Comment on above: No lupus anticoagula nt was detected. Performed at: - [facility] [id number] Telehealth Nurse: bA Giordano MD, Phone: [phone] PTT-LA 34.6 0.0 - 43.5 [facility] THOMAS 2 Neogenomicon THOMAS 2 Neogenomic Normal [facility] Comment on above: Result Comment: See report. Scanned copy available in EMR. PERFORMED BY: [place] [address] PATHOLOGIST [employer] PROFESSIONAL CUCO BLOUNT M.D. Performed By: #### J AK 2 NEOGENOMI #### [place] [address] [place] Magnesiumon 01-31-2025 Magnesium [Mass/Vol] 1.9 mg/dL Normal 1.9-2.7 [facility] Comment on above: Order Comment: DRAW ALL TIMED LABS AT 0500 Result Comment: PERF ORMED BY: [place] [address] PATHOLOGIST [employer] PROFESSIONAL CUCO BLOUNT M.D. Performed By: #### A JOE, JOAOU #### [address] No Panel Informationon 01-31 [facility] PROTEIN C FUNCTIONALon 01-31 PROTEIN C FUNCTIONAL 96 % 73 - 180 % [facility] Comment on above: Performed at: [facility] [address] [id number] Telehealth Nurse: Ab Giordano MD, Phone: [phone] PROTEIN S ANTIGENon 02-01-20 25 PROTEIN S, FREE 81 % 61 - 136 % [facility] Comment on above: Performed at: [facility] [address] [id number] Telehealth Nurse: Ab Giordano MD, Phone: [phone] PROTEIN S, TOTAL 80 % 60 - 150 % [facility] Comment on above: This test was develo ped and its performance characteristics determined by [employer]. It has not been cleared or approved by the Food and Drug Administration. [facility] PROTEIN S FUNCTIONALon 01-31 PROTEIN S FUNCTIONAL 59 % 63 - 140 % [facility] Comment on above: A deficiency of prot ein S (PS), either congenital or acquired, increases [...] depending on the clinical scenario. Performed at: - [facility] [id number] Telehealth Nurse: Ab Giordano MD, Phone: [phone] [facility] Prothrombin Time INRon 01-31 INR Coag (PPP) [Relative time] 0.9 {INR} Normal [facility] Comment on above: Order Comment: DRAW ALL TIMED LABS AT 0500 Result Comment: INR Therapeutic Range A) Pre- and [...] with mechanical heart valves: 3 - 4.5 PERFORMED BY: [place] [address] PATHOLOGIST [employer] PROFESSIONAL [employer]CO BLOUNT M.D. Performed By: #### C BC, PT #### [facility] [address] [place], [place] [id number] [facility] PT Coag (PPP) [Time] 10.8 s Normal 9.0-12.9 [facility] Comment on above: Order Comment: DRAW ALL TIMED LABS AT 0500 Result Comment: A he matocrit value greater than 55% may lead to inaccurate results in coagulation testing. Patients having hematocrit values >55% require a special collection tube for coagulation studies. Please contact the laboratory at [phone] for redraw instructions. Performed By: #### C BC, PT #### [facility] [address] [place] [address] [facility] US venous duplex LE BIon US venous duplex LE [facility] [place] [address] [place] [address] Ultrasound Report Signed Patient: Candy Booth MR#: [id number] : 1970 Acct:[id number] Age/Sex: 54 / F ADM Date: 01/25/25 Loc: Room: [address] [place] [address] Type: ADM IN Attending Dr: Camden Almodovar MD Ordering Provider: Barbi Nelson APRN Date of Service: 01/31/25 US/US venous duplex LE BI: dvt Copies to: Barbi Nelson, MCA Almodovar MD Bilateral lower extremity venous duplex examination Indication for study: Follow-up deep vein thrombosis PROCEDURE: Color-flow duplex scanning is used to interrogate the venous anatomy of both lower extremities. There is been progression of deep vein thrombosis in both legs. Bilaterally the common femoral vein remains patent with good compressibility and color flow. In both legs there is now incompressibility with compromised color-flow in the distal portion of the femoral vein. The popliteal veins bilaterally remain patent. There is the previously noted calf level deep vein thrombosis unchanged in both legs. US/US venous duplex LE BI IMPRESSION: This examination is positive for bilateral distal femoral vein deep vein thrombosis which is acute and is changed from the prior examination. Impression dictated by: Jayjay Robins M.D. 01/31/2025 9:56 AM Dictation Location: [place] [address] Tech: Lu Annia Transcribed By: RYAN 01/31/25955 Dictated By: Jayjay Robins MD 01/31/2554 Signed By: 01/31/25955 Normal [facility] Complete Blood Count Auto Di ffon 01-30-2025 Basophils (Bld) [#/Vol] 0.0 10*3/uL Normal 0.0-0.2 [facility] Comment on above: Result Comment: PERF ORMED BY: [place] [address] PATHOLOGIST [employer] PROFESSION[employer] BLOUNT M.D. Performed By: #### A ERNESTINE DIAZ #### [address] Basophils/100 WBC (Bld) 0.8 % Normal . [facility] Comment on above: Performed By: #### A DDONUAPLUS, CUU #### [address] Eosinophils (Bld) [#/Vol] 0.1 10*3/uL Normal 0.0-0.45 [facility] Comment on above: Performed By: #### A DDONUAPLUS, CUU #### [address] Eosinophils/100 WBC (Bld) 1.9 % Normal . [facility] Comment on above: Performed By: #### A DDONUAPLUS, CUU #### [address] Erythrocyte distribution width (RBC) [Ratio] 21.1 % High 11.9-15.3 [facility] Comment on above: Performed By: #### A DDONUAPLUS, CUU #### [address] Hematocrit (Bld) [Volume fraction] 27.8 % Low 34.0-46.4 [facility] Comment on above: Performed By: #### A DDONUAPLUS, CUU #### [address] Hemoglobin (Bld) [Mass/Vol] 9.2 g/dL Low 11.8-15.4 [facility] Comment on above: Performed By: #### A DDONUAPLUS, CUU #### [address] Lymphocytes (Bld) [#/Vol] 1.1 10*3/uL Normal 1.00-4.8 [facility] Comment on above: Performed By: #### A DDONUAPLUS, CUU #### [address] Lymphocytes/100 WBC (Bld) 27.2 % Normal . [facility] Comment on above: Performed By: #### A DDONUAPLUS, CUU #### [address] MCH (RBC) [Entitic mass] 28.4 pg Normal 24.7-34.3 [facility] Comment on above: Performed By: #### A JOE, CUU #### [address] MCV (RBC) [Entitic vol] 85.5 fL Normal 80-100 [facility] Comment on above: Performed By: #### A JOE, CUU #### [address] Mean Corpuscular HGB Conc 33.2 g/dL Normal 32.0-35.0 [facility] Comment on above: Performed By: #### A JOE, CUU #### [address] Monocytes (Bld) [#/Vol] 0.3 10*3/uL Normal 0.0-0.8 [facility] Comment on above: Performed By: #### A JOE CUU #### [address] Monocytes/100 WBC (Bld) 7.6 % Normal . [facility] Comment on above: Performed By: #### A JOE CUU #### [address] Neutrophils (Bld) [#/Vol] 2.6 10*3/uL Normal 1.8-7.7 [facility] Comment on above: Performed By: #### A JOE, CUU #### [address] Neutrophils/100 WBC (Bld) 62.5 % Normal . [facility] Comment on above: Performed By: #### A JOE, CUU #### [address] NRBC% 0.2 /100{WBC} Normal 0-0.5 [facility] Comment on above: Performed By: #### A JOE, CUU #### [address] Platelet mean volume (Bld) [Entitic vol] 7.7 fL Normal 6.3-10.7 [facility] Comment on above: Performed By: #### A DDONUAPLUS, CUU #### [address] Platelets (Bld) [#/Vol] 322 10*3/uL Normal 150-450 [facility] Comment on above: Performed By: #### A DDONUAPLUS, CUU #### [address] RBC (Bld) [#/Vol] 3.25 10*6/uL Low 3.60-5.00 [facility] Comment on above: Performed By: #### A DDONUAPLUS, CUU #### [address] WBC (Bld) [#/Vol] 4.2 10*3/uL Normal 3.8-11.6 [facility] Comment on above: Performed By: #### A DDONUAPLUS, CUU #### [address] White Blood Count 4.2 [CFU]/mL Normal 3.8-11.6 [facility] Comment on above: Performed By: #### A DDONUAPLUS, CUU #### [address] Comprehensive Metabolic Pane doris 01-30-2025 Albumin [Mass/Vol] 2.5 g/dL Low 3.5-5.7 [facility] Comment on above: Performed By: #### A DDONUAPLUS, CUU #### [address] Albumin/Globulin [Mass ratio] 0.9 {ratio} Normal [facility] Comment on above: Performed By: #### A DDONUAPLUS, CUU #### [address] ALP [Catalytic activity/Vol] 99 U/L Normal 34-104 [facility] Comment on above: Performed By: #### A DDONUAPLUS, CUU #### [address] ALT [Catalytic activity/Vol] 5 U/L Low 7-52 [facility] Comment on above: Performed By: #### A DDONUAPLUS, CUU #### [address] Anion gap [Moles/Vol] 10.4 mmol/L Normal 6.0-15.0 [facility] Comment on above: Performed By: #### A DDONUAPLUS, CUU #### [address] AST [Catalytic activity/Vol] 35 U/L Normal 13-39 [facility] Comment on above: Performed By: #### A DDONUAPLUS, CUU #### [address] Bilirubin [Mass/Vol] 0.5 mg/dL Normal 0.3-1.0 [facility] Comment on above: Performed By: #### A DDONUAPLUS, CUU #### [address] Calcium [Mass/Vol] 7.9 mg/dL Low 8.6-10.3 [facility] Comment on above: Performed By: #### A DDONUAPLUS, CUU #### [address] Chloride [Moles/Vol] 104 mmol/L Normal 98-107 [facility] Comment on above: Performed By: #### A DDONUAPLUS, CUU #### [place] [address] [place] CO2 [Moles/Vol] 28.9 mmol/L Normal 21.0-31.0 [facility] Comment on above: Performed By: #### A DDONUAPLUS, CUU #### [place] [address] [place] Creatinine [Mass/Vol] 0.42 mg/dL Low 0.60-1.20 [facility] Comment on above: Performed By: #### A DDONUAPLUS, CUU #### [address] Creatinine Clr Calc Pharmacy 160.89 Normal [facility] Comment on above: Performed By: #### A DDBARBARAUAPLUS, CUU #### [place] [address] [place] GFR/1.73 sq M.predicted MDRD (S/P/Bld) [Vol rate/Area] mL/min/{1.73_m2} Normal [facility] Comment on above: Performed By: #### A RALPHUAPLUS, CUU #### [address] Globulin (S) [Mass/Vol] 2.9 g/dL Normal [facility] Comment on above: Performed By: #### A DDONUAPLUS, CUU #### [address] Glucose [Mass/Vol] 89 mg/dL Normal 70-100 [facility] Comment on above: Result Comment: [place] Glucose Reference Range is dependent on time and content of last meal. Glucose of more than 200 mg/dL in a nonstressed, ambulatory subject supports the diagnosis of Diabetes Mellitus. ADA recommended reference range Performed By: #### A DDONUAPLUS, CUU #### [address] Potassium [Moles/Vol] 3.3 mmol/L Low 3.5-5.1 [facility] Comment on above: Performed By: #### A DDONUAPLUS, CUU #### [address] Protein [Mass/Vol] 5.4 g/dL Low 6.4-8.9 [facility] Comment on above: Performed By: #### A DDONUAPLUS, CUU #### [place] [address] [place] Sodium [Moles/Vol] 140 mmol/L Normal 136-145 [facility] Comment on above: Performed By: #### A DDONUAKIERA, CUU #### [address] Urea nitrogen [Mass/Vol] 3 mg/dL Low 7-25 [facility] Comment on above: Performed By: #### A DDONUAPLUS, CUU #### [address] Magnesiumon 01-30-2025 Magnesium [Mass/Vol] 1.8 mg/dL Low 1.9-2.7 [facility] Comment on above: Result Comment: PERF ORMED BY: [place] [address] PATHOLOGIST [employer] PROFESSIONAL [employer] BLOUNT M.D. Performed By: #### A DDONUAKIERA, CUU #### [address] Anticardiolipin IgG/M/A, Qno n 01-29-2025 Anticardiolipin Ab, IgA,Qn <9 Normal 0-11 [facility] Comment on above: Result Comment: Nega tive: <12 Indeterminate: 12 - 20 Low-Med Positive: >20 - 80 High Positive: >80 Performed at: [facility] [id number] Telehealth Nurse: Marcelo Parikh PhD, Phone: [phone] Performed By: #### H H #### [place] [address] [place] Anticardiolipin Ab, IgG,Qn <9 Normal 0-14 [facility] Comment on above: Result Comment: Nega tive: <15 Indeterminate: 15 - 20 Low-Med Positive: >20 - 80 High Positive: >80 Performed By: #### H H #### [place] [address] [place] Anticardiolipin Ab, IgM,Qn <9 Normal 0-12 [facility] Comment on above: Result Comment: Nega tive: <13 Indeterminate: 13 - 20 Low-Med Positive: >20 - 80 High Positive: >80 Performed By: #### H H #### [address] Antithrombin Activityon 09-0 Antithrombin Activity 97 % Normal 75-135 [facility] Comment on above: Result Comment: Dire ct Xa inhibitor anticoagulants such as rivaroxaban, apixaban and edoxaban will lead to spuriously elevated antithrombin activity levels possibly masking a deficiency. Performed at: - [facility] [id number] Telehealth Nurse: Ab Giordano MD, Phone: [phone] PERFORMED BY: [place] [address] PATHOLOGIST [employer] PROFESSIONAL [employer] BLOUNT M.D. Performed By: #### C BC, PT #### [address] Beta 2 Glycoprotein I Ab IgG Be 01-29-2025 Beta 2 Glycoprotein I Ab, IgA <9 Normal 0-25 [facility] Comment on above: Result Comment: Resu lt Units: GPI IgA units Performed By: #### H H #### [address] Beta 2 Glycoprotein I Ab, IgG <9 Normal 0-20 [facility] Comment on above: Result Comment: Resu lt Units: GPI IgG units Performed By: #### H H #### [address] Beta 2 Glycoprotein I Ab, IgM <9 Normal 0-32 [facility] Comment on above: Result Comment: Resu lt Units: GPI IgM units Performed at: - [facility] [id number] Telehealth Nurse: Marcelo Parikh PhD, Phone: [phone] Performed By: #### H H #### [address] Complete Blood Count Auto Di ffon 01-29-2025 Basophils (Bld) [#/Vol] 0.0 10*3/uL Normal 0.0-0.2 [facility] Comment on above: Result Comment: PERF ORMED BY: [place] [address] PATHOLOGIST [employer] PROFESSION[employer] BLOUNT M.D. Performed By: #### C BC, PT #### [address] Basophils/100 WBC (Bld) 1.0 % Normal . [facility] Comment on above: Performed By: #### C BC, PT #### [address] Eosinophils (Bld) [#/Vol] 0.1 10*3/uL Normal 0.0-0.45 [facility] Comment on above: Performed By: #### C BC, PT #### [place] [address] [place] Eosinophils/100 WBC (Bld) 3.5 % Normal . [facility] Comment on above: Performed By: #### C BC, PT #### [address] Erythrocyte distribution width (RBC) [Ratio] 21.2 % High 11.9-15.3 [facility] Comment on above: Performed By: #### C BC, PT #### [address] Hematocrit (Bld) [Volume fraction] 28.1 % Low 34.0-46.4 [facility] Comment on above: Performed By: #### C BC, PT #### [address] Hemoglobin (Bld) [Mass/Vol] 9.3 g/dL Low 11.8-15.4 [facility] Comment on above: Performed By: #### C BC, PT #### [address] Lymphocytes (Bld) [#/Vol] 1.4 10*3/uL Normal 1.00-4.8 [facility] Comment on above: Performed By: #### C BC, PT #### [address] Lymphocytes/100 WBC (Bld) 34.9 % Normal . [facility] Comment on above: Performed By: #### C BC, PT #### [address] MCH (RBC) [Entitic mass] 28.1 pg Normal 24.7-34.3 [facility] Comment on above: Performed By: #### C BC, PT #### [address] MCV (RBC) [Entitic vol] 85.2 fL Normal 80-100 [facility] Comment on above: Performed By: #### C BC, PT #### [address] Mean Corpuscular HGB Conc 33.0 g/dL Normal 32.0-35.0 [facility] Comment on above: Performed By: #### C BC, PT #### [place] [address] [place] Monocytes (Bld) [#/Vol] 0.4 10*3/uL Normal 0.0-0.8 [facility] Comment on above: Performed By: #### C BC, PT #### [address] Monocytes/100 WBC (Bld) 9.0 % Normal . [facility] Comment on above: Performed By: #### C BC, PT #### [address] Neutrophils (Bld) [#/Vol] 2.1 10*3/uL Normal 1.8-7.7 [facility] Comment on above: Performed By: #### C BC, PT #### [address] Neutrophils/100 WBC (Bld) 51.6 % Normal . [facility] Comment on above: Performed By: #### C BC, PT #### [address] NRBC% 0.2 /100{WBC} Normal 0-0.5 [facility] Comment on above: Performed By: #### C BC, PT #### [address] Platelet mean volume (Bld) [Entitic vol] 7.8 fL Normal 6.3-10.7 [facility] Comment on above: Performed By: #### C BC, PT #### [address] Platelets (Bld) [#/Vol] 297 10*3/uL Normal 150-450 [facility] Comment on above: Performed By: #### C BC, PT #### [address] RBC (Bld) [#/Vol] 3.29 10*6/uL Low 3.60-5.00 [facility] Comment on above: Performed By: #### C BC, PT #### [address] WBC (Bld) [#/Vol] 4.0 10*3/uL Normal 3.8-11.6 [facility] Comment on above: Performed By: #### C BC, PT #### [address] White Blood Count 4.0 [CFU]/mL Normal 3.8-11.6 [facility] Comment on above: Performed By: #### C BC, PT #### [address] Comprehensive Metabolic Pane doris 01-29-2025 Albumin [Mass/Vol] 2.6 g/dL Low 3.5-5.7 [facility] Comment on above: Performed By: #### C BC, PT #### [address] ALP [Catalytic activity/Vol] 100 U/L Normal 34-104 [facility] Comment on above: Performed By: #### C BC, PT #### [address] ALT [Catalytic activity/Vol] 6 U/L Low 7-52 [facility] Comment on above: Performed By: #### C BC, PT #### [facility] [address] Anion gap [Moles/Vol] 8.9 mmol/L Normal 6.0-15.0 [facility] Comment on above: Performed By: #### C BC, PT #### [address] AST [Catalytic activity/Vol] 36 U/L Normal 13-39 [facility] Comment on above: Performed By: #### C BC, PT #### [address] Bilirubin [Mass/Vol] 0.5 mg/dL Normal 0.3-1.0 [facility] Comment on above: Performed By: #### C BC, PT #### [address] Calcium [Mass/Vol] 7.9 mg/dL Low 8.6-10.3 [facility] Comment on above: Performed By: #### C BC, PT #### [address] Chloride [Moles/Vol] 105 mmol/L Normal 98-107 [facility] Comment on above: Performed By: #### C BC, PT #### [address] CO2 [Moles/Vol] 28.4 mmol/L Normal 21.0-31.0 [facility] Comment on above: Performed By: #### C BC, PT #### [address] Creatinine [Mass/Vol] 0.37 mg/dL Low 0.60-1.20 [facility] Comment on above: Performed By: #### C BC, PT #### [address] Creatinine [facility] 184.45 Normal [facility] Comment on above: Performed By: #### C BC, PT #### [place] [address] [place] GFR/1.73 sq M.predicted MDRD (S/P/Bld) [Vol rate/Area] mL/min/{1.73_m2} Normal [facility] Comment on above: Performed By: #### C BC, PT #### [address] Globulin (S) [Mass/Vol] 2.8 g/dL Normal [facility] Comment on above: Performed By: #### C BC, PT #### [address] Glucose [Mass/Vol] 77 mg/dL Normal 70-100 [facility] Comment on above: Result Comment: [facility] Glucose Reference Range is dependent on time and content of last meal. Glucose of more than 200 mg/dL in a nonstressed, ambulatory subject supports the diagnosis of Diabetes Mellitus. ADA recommended reference range Performed By: #### C BC, PT #### [address] Potassium [Moles/Vol] 3.3 mmol/L Low 3.5-5.1 [facility] Comment on above: Performed By: #### C BC, PT #### [address] Protein [Mass/Vol] 5.4 g/dL Low 6.4-8.9 [facility] Comment on above: Performed By: #### C BC, PT #### [address] Sodium [Moles/Vol] 139 mmol/L Normal 136-145 [facility] Comment on above: Performed By: #### C BC, PT #### [address] Urea nitrogen [Mass/Vol] 2 mg/dL Low 7-25 [facility] Comment on above: Performed By: #### C BC, PT #### [address] Creatinine (U) [Mass/Vol]on 01-29-2025 Creatinine spec 2 (U) [Mass/Vol] 17 mg/dL [facility] Comment on above: No reference range e stablished Creatinine, Urine (Random)on 01-29-2025 Creatinine, Urine (Random) 17.00 mg/dL Normal [facility] Comment on above: Result Comment: No r eference range established PERFORMED BY: [place] [address] PATHOLOGIST [employer]OUNT M.D. Performed By: #### A DDONUAPLUS, CUU #### [address] DRVVT with Reflexon 01-30-20 25 Dilute Russells Viper Venom 40.8 Normal 0.0-47.0 [facility] Comment on above: Performed By: #### C BC, PT #### [address] Interpretation Comment: Normal . [facility] Comment on above: Result Comment: No l upus anticoagulant was detected. Performed at: [address] [id number] Telehealth Nurse: Ab Giordano MD, Phone: [phone] PERFORMED BY: [place] [address] PATHOLOGIST [employer] PROFESSIONAL [employer] BLOUNT M.D. Performed By: #### C BC, PT #### [address] PTT-LA 34.6 Normal 0.0-43.5 [facility] Comment on above: Performed By: #### C BC, PT #### [address] Factor II DNA Analysison Additional Information Comment Normal . [facility] Comment on above: Result Comment: Tech nical Component performed at [facility] [place] Professional Component performed by: Gildardo Moore, PhD, [facility] [id number], [facility], [address] [place] [address] Performed at: TG - [facility] [place] [address] [facility], [place], [place] [id number] Telehealth Nurse: [facility], located [facility], Phone: [phone] PERFORMED BY: [place] [address] PATHOLOGIST [employer] PROFESSION[employer] BLOUNT M.D. Performed By: #### H H #### [address] Factor II, DNA Analysis Comment Normal . [facility] Comment on above: Result Comment: Resu lt: c.*97G>A - Not Detected This result is [...] the F2 gene and a c.1601G>A (p. [id number]) variant in the F5 gene (commonly referred to as Factor V Leiden) have an approximately 20- fold increased risk for venous thromboembolism. Risks are likely to be even higher in more complex genotype combinations involving the F2 c.*97G>A variant and Factor V Leiden (PMID: 19889486). Additional risk factors include but are not [...] health care providers to discuss results at [phone] Test Details: Variant analyzed: c.*97G>A, previously referred to as [id number] Methods/Limitations: DNA analysis of the F2 gene [...] developed and its performance characteristics determined by [employer]. It has not been cleared or approved by the Food and Drug Administration. References: Triston Santos, Rebecca PATINO, Eagle R, Marissa WW, Jamaal JH; ACMG Professional Practice and Guidelines Committee. Addendum: [place] [employer] consensus statement on factor V Leiden mutation testing. Velma Med. 2020Jul 28. doi: 10.1038/[id number]-t. PMID: 54525838. Mike GLOVER. Prothrombin Thrombophilia. 2005Dec 17 [Updated 2020Jun 29]. In: Itz MP, Angeline HH, Matthew RA, et al., editors. Adriel(R) [Internet]. [place] ([place]): [facility]; 6608-5069. Available from: https://www.ncbi.nlm.nih.gov/books/FFJ5794/ Kamari Santos, Rebecca PATINO, David X, Humberto B, Charly EB, Missy P, Dimas CS; ACMG Laboratory Med Asst Committee. Venous thromboembolism laboratory testing (factor V Leiden and factor II c.*97G>A), 2018 update: a technical standard of the [place] [employer] and Genomics (ACMG). Velma Med. 2017;20(12):3351-9847. doi: 10.1038/[id number]-j. Epub 2017Feb 27. PMID: 11498114. Performed By: #### H H #### [facility] [address] Factor V Leiden Mutationon 0 01-29-2025 Factor V Leiden Comment Critically abnormal . 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 See Additional Clinical Information and Comments. Additional Clinical Information: Venous thromboembolism is a multifactorial disease influenced by genetic, environmental, and circumstantial risk factors. The c.1601G>A (p. [id number]) variant in the F5 gene, commonly referred [...] c.*97G>A variant and Factor V Leiden (PMID: 02290633). Additional risk factors include but are not [...] health care providers to discuss results at [phone]). Test Details: Variant Analyzed: c.1601G>A (p. [id number]), referred to as Factor V Leiden Methods/Limitations: [...] developed and its performance characteristics determined by [employer] [facility]. It has not been cleared or approved by the Food and Drug Administration. References: Triston Santos, Rebecca PATINO, Eagle R, Marissa WW, Jamaal JH; ACMG Professional Practice and Guidelines Committee. Addendum: [place] [employer] consensus statement on factor V Leiden mutation testing. Velma Med. 2020Jul 28. doi: 10.1038/[id number]-n. PMID: 49212955. Mike GLOVER. Factor V Leiden Thrombophilia. 1998October 06 (Updated 2017May 29). In: Itz MP, Angeline HH, Matthew RA, et al., editors. Adriel(R) (Internet). [place] ([place]): [facility]; 4093-1374. Available from: https://www.ncbi.nlm.nih.gov/books/ZCS0000/ Kamari S, Rebecca PATINO, David X, Humberto B, Charly EB, Missy P, Dimas CS; ACMG Laboratory Med Asst Committee. Venous thromboembolism laboratory testing (factor V Leiden and factor II c. *97G>A), 2018 update: a technical standard of the [place] [employer] and Gen[employer] (ACMG). Velma Med. 2017;20(12): 1262-7114. doi: 10.1038/[id number]-b. Epub 2017Feb 27. PMID: 93622761. Performed By: #### H H #### [place] [address] [place] Reviewed by: Comment Normal . [facility] Comment on above: Result Comment: [facility], Ph.D., FACMG Performed at: [facility] [address] [place], [place] [id number] Telehealth Nurse: [facility], located [facility], Phone: [phone] Performed By: #### H H #### [address] Fibrinogenon 01-29-2025 Fibrinogen 333 mg/dL Normal 200-393 [facility] Comment on above: Result Comment: A he matocrit value greater than 55% may lead to inaccurate results in coagulation testing. Patients having hematocrit values >55% require a special collection tube for coagulation studies. Please contact the laboratory at [phone] for redraw instructions. PERFORMED BY: [place] [address] PATHOLOGIST [employer] PROFESSION[employer] M.D. Performed By: #### C BC, PT #### [place] [id number] [facility] Fibrinogen Coag (PPP) [Mass/ Vol]on 01-29-2025 FIBRINOGEN 333 mg/dL 200 - 393 mg/dL [facility] Comment on above: A hematocrit value g reater than 55% may lead to inaccurate results in coagulation testing. Patients having hematocrit values >55% require a special collection tube for coagulation studies. Please contact the laboratory at [phone] for redraw instructions. Magnesiumon 01-29-2025 Magnesium [Mass/Vol] 1.6 mg/dL Low 1.9-2.7 [facility] Comment on above: Result Comment: PERF ORMED BY: [place] [address] PATHOLOGIST [employer] PROFESSION[employer]OUNT M.D. Performed By: #### C BC, PT #### [place] [id number] [facility] No Panel Informationon 01-29 [facility] PT Coag (Bld) [Time]on 01-29 INR Coag (PPP) [Relative time] 0.9 {INR} [facility] Comment on above: INR Therapeutic Rang e A) Pre- and Peroperative OAT started two weeks before surgery. NOT HIP SURGERY: 1.5 - 2.5 HIP SURGERY: 2 - 3 B) Primary and secondary prevention of venous THROMBOSIS: 2 - 3 C) Active venous thrombosis, pulmonary embolism and prevention of recurrent venous thrombosis: 2 - 3 D) Prevention of arterial thromboembolism including patients with mechanical heart valves: 3 - 4.5 PT Coag (PPP) [Time] 10.8 s 9.0 - 12.9 s NO [facility] Comment on above: A hematocrit value g reater than 55% may lead to inaccurate results in coagulation testing. Patients having hematocrit values >55% require a special collection tube for coagulation studies. Please contact the laboratory at [phone] for redraw instructions. Prot Electrophor w/reflex IF Constantin 01-29-2025 Albumin [Mass/Vol] 2.4 g/dL Normal 2.9-4.4 [facility] Comment on above: Performed By: #### C BC, PT #### [address] Albumin/Globulin [Mass ratio] 0.9 {ratio} Normal [facility] Comment on above: Performed By: #### C BC, PT #### [address] Yxfqg-8-Dfrklmxz 0.2 g/dL Normal 0.0-0.4 [facility] Comment on above: Performed By: #### C BC, PT #### [address] Fxgsa-0-Yjajsqjy 0.7 g/dL Normal 0.4-1.0 [facility] Comment on above: Performed By: #### C BC, PT #### [facility] [address] [place] [address] [place] Beta Globulin 1.0 g/dL Normal 0.7-1.3 [facility] Comment on above: Performed By: #### C BC, PT #### [facility] [address] [place] [id number] [place] Gamma Globulin 0.8 g/dL Normal 0.4-1.8 [facility] Comment on above: Performed By: #### C BC, PT #### [facility] [address] [place] [id number] [place] Globulin (S) [Mass/Vol] 2.7 g/dL Normal 2.2-3.9 [facility] Comment on above: Performed By: #### C BC, PT #### [address] Immunofixation Reflex . Normal . [facility] Comment on above: Performed By: #### C BC, PT #### [address] Immunofixation Result Comment: Normal . [facility] Comment on above: Result Comment: Pres ence of monoclonal protein is unclear at this time. Suggest repeat in 3 to 6 months if clinically indicated. Performed at: - [facility] [address] [id number] Telehealth Nurse: Marcelo Parikh PhD, Phone: [phone] Performed By: #### C BC, PT #### [address] M-Jerman Comment: Normal Not Observed [facility] Comment on above: Result Comment: SPE shows asymmetrical gamma. Performed By: #### C BC, PT #### [address] Protein [Mass/Vol] 5.1 g/dL Normal 6.0-8.5 [facility] Comment on above: Performed By: #### C BC, PT #### [address] SPE-Note Comment Normal . [facility] Comment on above: Result Comment: Prot ein electrophoresis scan will follow via computer, mail, or educational speech language clinician delivery. Performed By: #### C BC, PT #### [address] Protein C Antigenon 01-30-20 25 Protein C Antigen 70 % Normal 60-150 [facility] Comment on above: Result Comment: Perf ormed at: BN - [facility] [address] [id number] Telehealth Nurse: Ab Giordano MD, Phone: [phone] PERFORMED BY: [place] [address] PATHOLOGIST [employer] PROFESSIONAL [employer]OUNT M.D. Performed By: #### C NÉSTOR, PT #### [place] [address] [place] Protein C Functionalon 01-29 Protein C Functional 96 % Normal 73-180 [facility] Comment on above: Result Comment: Perf ormed at: - [facility] [id number] Telehealth Nurse: Ab Giordano MD, Phone: [phone] PERFORMED BY: [place] [address] PATHOLOGIST [employer] PROFESSION[employer] BLOUNT M.D. Performed By: #### C NÉSTOR, PT #### [place] [address] [place] Protein Electro, Random Urin constantin 01-29-2025 Albumin, Urine 34.0 % Normal . [facility] Comment on above: Performed By: #### H H #### [place] [address] [place] Qbgxe-1-Vbuwhetd, Urine 4.2 % Normal . [facility] Comment on above: Performed By: #### H H #### [place] [address] [place] Tcilk-8-Cdkztjkj, Urine 8.4 % Normal . [facility] Comment on above: Performed By: #### H H #### [place] [address] [place] Beta Globulin, Urine 22.3 % Normal . [facility] Comment on above: Performed By: #### H H #### [place] [address] [place] Gamma Globulin, Urine 31.0 % Normal . [facility] Comment on above: Performed By: #### H H #### [place] [address] [place] M-Jerman % Not Observed Normal Not Observed [facility] Comment on above: Performed By: #### H H #### [address] Please Note: Comment Normal . [facility] Comment on above: Result Comment: Prot ein electrophoresis scan will follow via computer, mail, or educational speech language clinician delivery. Performed at: [address] [id number] Telehealth Nurse: Marcelo Parikh PhD, Phone: [phone] PERFORMED BY: [place] [address] PATHOLOGIST [employer] PROFESSIONAL [employer] M.D. Performed By: #### H H #### [address] Protein (U) [Mass/Vol] 5.7 mg/dL Normal Not Estab. [facility] Comment on above: Performed By: #### H H #### [address] Protein S Antigenon 01-30-20 Protein S, Free 81 % Normal 61-136 [facility] Comment on above: Result Comment: Perf ormed at: [facility] [id number] Telehealth Nurse: Ab Giordano MD, Phone: [phone] PERFORMED BY: [place] [address] PATHOLOGIST YOU[employer] PROFESSIONAL [employer] BLOUNT M.D. Performed By: #### C BC, PT #### [address] Protein S, Total 80 % Normal 60-150 [facility] Comment on above: Result Comment: This test was developed and its performance characteristics determined by [facility]. It has not been cleared or approved by the Food and Drug Administration. Performed By: #### C BC, PT #### [address] Protein S Functionalon 01-29 Protein S Functional 59 % Normal 63-140 [facility] Comment on above: Result Comment: A de ficiency of protein S (PS), either congenital or [...] depending on the clinical scenario. Performed at: [facility] [id number] Telehealth Nurse: Ab Giordano MD, Phone: [phone] PERFORMED BY: [place] [address] PATHOLOGIST YOU[employer] C[employer] PROFESSIONAL [employer] BLOUNT M.D. Performed By: #### C BC, PT #### [address] Prothrombin Time INRon 01-29 INR Coag (PPP) [Relative time] 0.9 {INR} Normal [facility] Comment on above: Result Comment: INR Therapeutic Range A) Pre- and [...] with mechanical heart valves: 3 - 4.5 Performed By: #### A DDONUAKIERA, CUU #### [address] PT Coag (PPP) [Time] 10.8 s Normal 9.0-12.9 [facility] Comment on above: Result Comment: A he matocrit value greater than 55% may lead to inaccurate results in coagulation testing. Patients having hematocrit values >55% require a special collection tube for coagulation studies. Please contact the laboratory at [phone] for redraw instructions. Performed By: #### A DDONUAPLUS, CUU #### [address] Reflex to IFEon 01-29-2025 Immunoglobulin A, Serum 488 mg/dL Normal 87-352 [facility] Comment on above: Performed By: #### C BC, PT #### [address] Immunoglobulin G 1052 mg/dL Normal 586-1602 [facility] Comment on above: Performed By: #### C BC, PT #### [address] Immunoglobulin M, Serum 105 mg/dL Normal 26-217 [facility] Comment on above: Result Comment: PERF ORMED BY: [place] [address] PATHOLOGIST [employer] PROFESSION[employer]OUNT M.D. Performed By: #### C BC, PT #### [address] TOTAL PROTEIN, URINEon 01-29 Protein (U) [Mass/Vol] 7 mg/dL 0 - 9 mg/dL [facility] Total Protein, Urineon 01-29 Protein (U) [Mass/Vol] 7 mg/dL Normal 0-9 [facility] Comment on above: Result Comment: PERF ORMED BY: [place] [address] PATHOLOGIST [employer] PROFESSION[employer] BLOUNT M.D. Performed By: #### H H #### [address] US venous duplex LE BIon US venous duplex LE BI [facility] [address] Ultrasound Report Signed Patient: Candy Booth MR#: [id number] : 1970 Acct:[id number] Age/Sex: 54 / F ADM Date: 01/25/25 Loc: Room: [address] [place] [address] Type: ADM IN Attending Dr: Camden Almodovar MD Ordering Provider: Jayjay Robins MD Date of Service: 01/28/25 US/US venous duplex LE BI: r/o progression dvt on friday Copies to: MD Camden Freeman MD Bilateral lower extremity venous duplex examination Indication for study: Follow-up deep vein thrombosis PROCEDURE: Color-flow duplex scanning is used to interrogate the venous anatomy of both lower extremities. On both sides the common femoral vein, femoral vein, and popliteal vein show good compressibility and color flow. There is calf level deep vein thrombosis in the right leg involving the posterior tibial and peroneal veins and in the left leg involving the peroneal veins. Saphenous veins are compressible bilaterally. US/US venous duplex LE BI IMPRESSION: Examination is positive for stable bilateral calf level deep vein thrombosis Impression dictated by: Jayjay Robins M.D. 01/29/2025 9:46 AM Dictation Location: [place] [address] Tech: Lu Milner Transcribed By: RYAN 01/29/25945 Dictated By: Jayjay Robins MD 01/29/25944 Signed By: 01/29/25945 Normal [facility] Basic Metabolic Panelon Anion gap [Moles/Vol] 10.5 mmol/L Normal 6.0-15.0 [facility] Comment on above: Performed By: #### C BC, PT #### [facility] [address] [place] [address] [place] Calcium [Mass/Vol] 7.7 mg/dL Low 8.6-10.3 [facility] Comment on above: Performed By: #### C BC, PT #### [facility] [address] [place] [address] [place] Chloride [Moles/Vol] 105 mmol/L Normal 98-107 [facility] Comment on above: Performed By: #### C BC, PT #### [facility] [address] CO2 [Moles/Vol] 27.4 mmol/L Normal 21.0-31.0 [facility] Comment on above: Performed By: #### C BC, PT #### [facility] [address] [place] [address] [place] Creatinine [Mass/Vol] 0.37 mg/dL Low 0.60-1.20 [facility] Comment on above: Performed By: #### C BC, PT #### [facility] [address] [place] [address] [place] Creatinine Clr Calc Pharmacy 184.45 Normal [facility] Comment on above: Result Comment: PERF ORMED BY: [place] [address] PATHOLOGIST [employer] PROFESSION[employer]OUNT M.D. Performed By: #### C BC, PT #### [place] [address] [place] GFR/1.73 sq M.predicted MDRD (S/P/Bld) [Vol rate/Area] mL/min/{1.73_m2} Normal [facility] Comment on above: Performed By: #### C BC, PT #### [address] Glucose [Mass/Vol] 91 mg/dL Normal 70-100 [facility] Comment on above: Result Comment: [place] Glucose Reference Range is dependent on time and content of last meal. Glucose of more than 200 mg/dL in a nonstressed, ambulatory subject supports the diagnosis of Diabetes Mellitus. ADA recommended reference range Performed By: #### C BC, PT #### [address] Potassium [Moles/Vol] 2.9 mmol/L Off scale low 3.5-5.1 [facility] Comment on above: Result Comment: Crit ical Result Called to and read back by: NELI GASTELUM at: 01/28/2025 08:53:49 by:RG Performed By: #### C BC, PT #### [address] Sodium [Moles/Vol] 140 mmol/L Normal 136-145 [facility] Comment on above: Performed By: #### C BC, PT #### [address] Urea nitrogen [Mass/Vol] 2 mg/dL Low 7-25 [facility] Comment on above: Performed By: #### C BC, PT #### [address] Complete Blood Count Auto Di ffon 01-28-2025 Basophils (Bld) [#/Vol] 0.0 10*3/uL Normal 0.0-0.2 [facility] Comment on above: Result Comment: PERF ORMED BY: [place] [address] PATHOLOGIST [employer] PROFESSION[employer] BLOUNT M.D. Performed By: #### C BC, PT #### [address] Basophils/100 WBC (Bld) 0.6 % Normal . [facility] Comment on above: Performed By: #### C BC, PT #### [address] Eosinophils (Bld) [#/Vol] 0.1 10*3/uL Normal 0.0-0.45 [facility] Comment on above: Performed By: #### C BC, PT #### [address] Eosinophils/100 WBC (Bld) 2.4 % Normal . [facility] Comment on above: Performed By: #### C BC, PT #### [address] Erythrocyte distribution width (RBC) [Ratio] 20.5 % High 11.9-15.3 [facility] Comment on above: Performed By: #### C BC, PT #### [address] Hematocrit (Bld) [Volume fraction] 29.0 % Low 34.0-46.4 [facility] Comment on above: Performed By: #### C BC, PT #### [address] Hemoglobin (Bld) [Mass/Vol] 9.5 g/dL Low 11.8-15.4 [facility] Comment on above: Performed By: #### C BC, PT #### [address] Lymphocytes (Bld) [#/Vol] 1.1 10*3/uL Normal 1.00-4.8 [facility] Comment on above: Performed By: #### C BC, PT #### [address] Lymphocytes/100 WBC (Bld) 27.5 % Normal . [facility] Comment on above: Performed By: #### C BC, PT #### [address] MCH (RBC) [Entitic mass] 27.8 pg Normal 24.7-34.3 [facility] Comment on above: Performed By: #### C BC, PT #### [address] MCV (RBC) [Entitic vol] 85.5 fL Normal 80-100 [facility] Comment on above: Performed By: #### C BC, PT #### [address] Mean Corpuscular HGB Conc 32.6 g/dL Normal 32.0-35.0 [facility] Comment on above: Performed By: #### C BC, PT #### [address] Monocytes (Bld) [#/Vol] 0.4 10*3/uL Normal 0.0-0.8 [facility] Comment on above: Performed By: #### C BC, PT #### [facility] [address] [place] [address] [place] Monocytes/100 WBC (Bld) 11.1 % Normal . [facility] Comment on above: Performed By: #### C BC, PT #### [facility] [address] Neutrophils (Bld) [#/Vol] 2.3 10*3/uL Normal 1.8-7.7 [facility] Comment on above: Performed By: #### C BC, PT #### [facility] [address] [place] [address] [place] Neutrophils/100 WBC (Bld) 58.4 % Normal . [facility] Comment on above: Performed By: #### C BC, PT #### [facility] [address] NRBC% 0.1 /100{WBC} Normal 0-0.5 [facility] Comment on above: Performed By: #### C BC, PT #### [facility] [address] Platelet mean volume (Bld) [Entitic vol] 7.9 fL Normal 6.3-10.7 [facility] Comment on above: Performed By: #### C BC, PT #### [facility] [address] [place] [address] [place] Platelets (Bld) [#/Vol] 266 10*3/uL Normal 150-450 [facility] Comment on above: Performed By: #### C BC, PT #### [facility] [address] [place] [id number] [place] RBC (Bld) [#/Vol] 3.40 10*6/uL Low 3.60-5.00 [facility] Comment on above: Performed By: #### C BC, PT #### [facility] [address] [place] [id number] [place] WBC (Bld) [#/Vol] 3.9 10*3/uL Normal 3.8-11.6 [facility] Comment on above: Performed By: #### C BC, PT #### [address] White Blood Count 3.9 [CFU]/mL Normal 3.8-11.6 [facility] Comment on above: Performed By: #### C BC, PT #### [address] Complete Blood Count Auto Di ffon 01-27-2025 Basophils (Bld) [#/Vol] 0.0 10*3/uL Normal 0.0-0.2 [facility] Comment on above: Result Comment: PERF ORMED BY: [place] [address] PATHOLOGIST [employer] CUCO BLOUNT M.D. Performed By: #### H H #### [address] Basophils/100 WBC (Bld) 0.5 % Normal . [facility] Comment on above: Performed By: #### H H #### [address] Eosinophils (Bld) [#/Vol] 0.1 10*3/uL Normal 0.0-0.45 [facility] Comment on above: Performed By: #### H H #### [address] Eosinophils/100 WBC (Bld) 2.4 % Normal . [facility] Comment on above: Performed By: #### H H #### [address] Erythrocyte distribution width (RBC) [Ratio] 20.3 % High 11.9-15.3 [facility] Comment on above: Performed By: #### H H #### [address] Hematocrit (Bld) [Volume fraction] 29.3 % Low 34.0-46.4 [facility] Comment on above: Performed By: #### H H #### [address] Hemoglobin (Bld) [Mass/Vol] 9.7 g/dL Low 11.8-15.4 [facility] Comment on above: Performed By: #### H H #### [address] Lymphocytes (Bld) [#/Vol] 1.1 10*3/uL Normal 1.00-4.8 [facility] Comment on above: Performed By: #### H H #### [address] Lymphocytes/100 WBC (Bld) 31.8 % Normal . [facility] Comment on above: Performed By: #### H H #### [address] MCH (RBC) [Entitic mass] 28.0 pg Normal 24.7-34.3 [facility] Comment on above: Performed By: #### H H #### [address] MCV (RBC) [Entitic vol] 84.8 fL Normal 80-100 [facility] Comment on above: Performed By: #### H H #### [address] Mean Corpuscular HGB Conc 33.0 g/dL Normal 32.0-35.0 [facility] Comment on above: Performed By: #### H H #### [address] Monocytes (Bld) [#/Vol] 0.6 10*3/uL Normal 0.0-0.8 [facility] Comment on above: Performed By: #### H H #### [address] Monocytes/100 WBC (Bld) 16.5 % Normal . [facility] Comment on above: Performed By: #### H H #### [address] Neutrophils (Bld) [#/Vol] 1.7 10*3/uL Low 1.8-7.7 [facility] Comment on above: Performed By: #### H H #### [address] Neutrophils/100 WBC (Bld) 48.8 % Normal . [facility] Comment on above: Performed By: #### H H #### [address] NRBC% 0.2 /100{WBC} Normal 0-0.5 [facility] Comment on above: Performed By: #### H H #### [address] Platelet mean volume (Bld) [Entitic vol] 8.4 fL Normal 6.3-10.7 [facility] Comment on above: Performed By: #### H H #### [address] Platelets (Bld) [#/Vol] 195 10*3/uL Abnormal 150-450 [facility] Comment on above: Performed By: #### H H #### [address] RBC (Bld) [#/Vol] 3.46 10*6/uL Low 3.60-5.00 [facility] Comment on above: Performed By: #### H H #### [address] WBC (Bld) [#/Vol] 3.5 10*3/uL Low 3.8-11.6 [facility] Comment on above: Performed By: #### H H #### [address] White Blood Count 3.5 [CFU]/mL Low 3.8-11.6 [facility] Comment on above: Performed By: #### H H #### [address] Comprehensive Metabolic Pane doris 01-27-2025 Albumin [Mass/Vol] 2.5 g/dL Low 3.5-5.7 [facility] Comment on above: Performed By: #### H H #### [address] Albumin/Globulin [Mass ratio] 0.9 {ratio} Normal [facility] Comment on above: Performed By: #### H H #### [address] ALP [Catalytic activity/Vol] 101 U/L Normal 34-104 [facility] Comment on above: Performed By: #### H H #### [address] ALT [Catalytic activity/Vol] 8 U/L Normal 7-52 [facility] Comment on above: Performed By: #### H H #### [address] Anion gap [Moles/Vol] 9.8 mmol/L Normal 6.0-15.0 [facility] Comment on above: Performed By: #### H H #### [address] AST [Catalytic activity/Vol] 31 U/L Normal 13-39 [facility] Comment on above: Performed By: #### H H #### [address] Bilirubin [Mass/Vol] 0.5 mg/dL Normal 0.3-1.0 [facility] Comment on above: Performed By: #### H H #### [address] Calcium [Mass/Vol] 7.7 mg/dL Low 8.6-10.3 [facility] Comment on above: Performed By: #### H H #### [place] [address] [place] Chloride [Moles/Vol] 103 mmol/L Normal 98-107 [facility] Comment on above: Performed By: #### H H #### [address] CO2 [Moles/Vol] 29.8 mmol/L Normal 21.0-31.0 [facility] Comment on above: Performed By: #### H H #### [address] Creatinine [Mass/Vol] 0.39 mg/dL Low 0.60-1.20 [facility] Comment on above: Performed By: #### H H #### [facility] [address] [place] [address] [place] Creatinine Clr Calc Pharmacy 174.89 Normal [facility] Comment on above: Performed By: #### H H #### [place] [address] [place] GFR/1.73 sq M.predicted MDRD (S/P/Bld) [Vol rate/Area] mL/min/{1.73_m2} Normal [facility] Comment on above: Performed By: #### H H #### [address] Globulin (S) [Mass/Vol] 2.8 g/dL Normal [facility] Comment on above: Performed By: #### H H #### [address] Glucose [Mass/Vol] 95 mg/dL Normal 70-100 [facility] Comment on above: Result Comment: [facility] Glucose Reference Range is dependent on time and content of last meal. Glucose of more than 200 mg/dL in a nonstressed, ambulatory subject supports the diagnosis of Diabetes Mellitus. ADA recommended reference range Performed By: #### H H #### [address] Potassium [Moles/Vol] 2.6 mmol/L Off scale low 3.5-5.1 [facility] Comment on above: Result Comment: Crit ical Result Called to and read back by: TIM ZAFAR at: 01/27/2025 06:12:18 by:[id number] Performed By: #### H H #### [address] Protein [Mass/Vol] 5.3 g/dL Low 6.4-8.9 [facility] Comment on above: Performed By: #### H H #### [address] Sodium [Moles/Vol] 140 mmol/L Normal 136-145 [facility] Comment on above: Performed By: #### H H #### [address] Urea nitrogen [Mass/Vol] 2 mg/dL Low 7-25 [facility] Comment on above: Performed By: #### H H #### [address] Magnesiumon 01-27-2025 Magnesium [Mass/Vol] 1.7 mg/dL Low 1.9-2.7 [facility] Comment on above: Result Comment: PERF ORMED BY: [place] [address] PATHOLOGIST [employer] BLOUNT M.D. Performed By: #### H H #### [address] Pathology Request for Lab Co rpon 01-27-2025 Pathology Request for Lab Elio Normal [facility] Comment on above: Order Comment: GI SP ECIMEN Result Comment: See report. Scanned copy available in EMR. PERFORMED BY: [place] [address] PATHOLOGIST [employer] BLOUNT M.D. Performed By: #### A DDONUAPLUS, CUU #### [address] Complete Blood Count Auto Di ffon 01-26-2025 Basophils (Bld) [#/Vol] 0.0 10*3/uL Normal 0.0-0.2 [facility] Comment on above: Result Comment: PERF ORMED BY: [place] [address] PATHOLOGIST [employer] PROFESSION[employer]CO BLOUNT M.D. Performed By: #### H H #### [address] [address] [place] Basophils/100 WBC (Bld) 0.6 % Normal . [facility] Comment on above: Performed By: #### H H #### [address] Eosinophils (Bld) [#/Vol] 0.1 10*3/uL Normal 0.0-0.45 [facility] Comment on above: Performed By: #### H H #### [address] Eosinophils/100 WBC (Bld) 2.3 % Normal . [facility] Comment on above: Performed By: #### H H #### [address] Erythrocyte distribution width (RBC) [Ratio] 19.8 % High 11.9-15.3 [facility] Comment on above: Performed By: #### H H #### [address] Hematocrit (Bld) [Volume fraction] 29.7 % Low 34.0-46.4 [facility] Comment on above: Performed By: #### H H #### [address] Hemoglobin (Bld) [Mass/Vol] 9.8 g/dL Low 11.8-15.4 [facility] Comment on above: Performed By: #### H H #### [address] Lymphocytes (Bld) [#/Vol] 0.9 10*3/uL Low 1.00-4.8 [facility] Comment on above: Performed By: #### H H #### [address] Lymphocytes/100 WBC (Bld) 26.5 % Normal . [facility] Comment on above: Performed By: #### H H #### [address] MCH (RBC) [Entitic mass] 27.8 pg Normal 24.7-34.3 [facility] Comment on above: Performed By: #### H H #### [address] MCV (RBC) [Entitic vol] 83.8 fL Normal 80-100 [facility] Comment on above: Performed By: #### H H #### [address] Mean Corpuscular HGB Conc 33.1 g/dL Normal 32.0-35.0 [facility] Comment on above: Performed By: #### H H #### [address] Monocytes (Bld) [#/Vol] 0.5 10*3/uL Normal 0.0-0.8 [facility] Comment on above: Performed By: #### H H #### [address] Monocytes/100 WBC (Bld) 14.3 % Normal . [facility] Comment on above: Performed By: #### H H #### [address] Neutrophils (Bld) [#/Vol] 1.9 10*3/uL Normal 1.8-7.7 [facility] Comment on above: Performed By: #### H H #### [address] Neutrophils/100 WBC (Bld) 56.3 % Normal . [facility] Comment on above: Performed By: #### H H #### [address] NRBC% 0.3 /100{WBC} Normal 0-0.5 [facility] Comment on above: Performed By: #### H H #### [address] Platelet mean volume (Bld) [Entitic vol] 8.5 fL Normal 6.3-10.7 [facility] Comment on above: Performed By: #### H H #### [address] Platelets (Bld) [#/Vol] 136 10*3/uL Low 150-450 [facility] Comment on above: Performed By: #### H H #### [address] RBC (Bld) [#/Vol] 3.54 10*6/uL Low 3.60-5.00 [facility] Comment on above: Performed By: #### H H #### [address] WBC (Bld) [#/Vol] 3.4 10*3/uL Low 3.8-11.6 [facility] Comment on above: Performed By: #### H H #### [address] White Blood Count 3.4 [CFU]/mL Low 3.8-11.6 [facility] Comment on above: Performed By: #### H H #### [address] Comprehensive Metabolic Pane doris 01-26-2025 Albumin [Mass/Vol] 2.4 g/dL Low 3.5-5.7 [facility] Comment on above: Performed By: #### C UU #### [address] Albumin/Globulin [Mass ratio] 0.9 {ratio} Normal [facility] Comment on above: Performed By: #### C UU #### [address] ALP [Catalytic activity/Vol] 109 U/L High 34-104 [facility] Comment on above: Performed By: #### C UU #### [address] ALT [Catalytic activity/Vol] 8 U/L Normal 7-52 [facility] Comment on above: Performed By: #### C UU #### [address] Anion gap [Moles/Vol] 9.5 mmol/L Normal 6.0-15.0 [facility] Comment on above: Performed By: #### C UU #### [address] AST [Catalytic activity/Vol] 36 U/L Normal 13-39 [facility] Comment on above: Performed By: #### C UU #### [address] Bilirubin [Mass/Vol] 0.6 mg/dL Normal 0.3-1.0 [facility] Comment on above: Performed By: #### C UU #### [address] Calcium [Mass/Vol] 7.9 mg/dL Low 8.6-10.3 [facility] Comment on above: Performed By: #### C UU #### [address] Chloride [Moles/Vol] 103 mmol/L Normal 98-107 [facility] Comment on above: Performed By: #### C UU #### [address] CO2 [Moles/Vol] 27.7 mmol/L Normal 21.0-31.0 [facility] Comment on above: Performed By: #### C UU #### [address] Creatinine [Mass/Vol] 0.36 mg/dL Low 0.60-1.20 [facility] Comment on above: Performed By: #### C UU #### [place] [address] [place] Creatinine Clr Calc Pharmacy 190.23 Normal [facility] Comment on above: Performed By: #### C UU #### [place] [address] [place] GFR/1.73 sq M.predicted MDRD (S/P/Bld) [Vol rate/Area] mL/min/{1.73_m2} Normal [facility] Comment on above: Performed By: #### C UU #### [address] Globulin (S) [Mass/Vol] 2.8 g/dL Normal [facility] Comment on above: Performed By: #### C UU #### [address] Glucose [Mass/Vol] 90 mg/dL Normal 70-100 [facility] Comment on above: Result Comment: [facility] Glucose Reference Range is dependent on time and content of last meal. Glucose of more than 200 mg/dL in a nonstressed, ambulatory subject supports the diagnosis of Diabetes Mellitus. ADA recommended reference range Performed By: #### C UU #### [address] Potassium [Moles/Vol] 3.2 mmol/L Low 3.5-5.1 [facility] Comment on above: Performed By: #### C UU #### [address] Protein [Mass/Vol] 5.2 g/dL Low 6.4-8.9 [facility] Comment on above: Performed By: #### C UU #### [address] Sodium [Moles/Vol] 137 mmol/L Normal 136-145 [facility] Comment on above: Performed By: #### C UU #### [address] Urea nitrogen [Mass/Vol] 5 mg/dL Low 7-25 [facility] Comment on above: Performed By: #### C UU #### [address] ECG 12 lead ECGon 01-26-2025 ECG 12 lead ECG [facility] [place] [address] [place] [address] Electrocardiograph Report Signed Patient: Candy Booth MR#: [id number] : 1970 Acct:[id number] Age/Sex: 54 / F ADM Date: 01/25/25 Loc: Room: [address] [place] [address] Type: ADM IN Attending Dr: Saul Brandon MD Ordering Provider: Tatyana Ohara MD Date of Service: 01/26/2508/17/1236 ECG/ECG 12 lead ECG: LV thrombus Copies to: Test Reason : Blood Pressure : */* mmHG Vent. Rate : 115 BPM Atrial Rate : 115 BPM P-R Int : 144 ms QRS Dur : 80 ms QT Int : 400 ms P-R-T Axes : 37 45 197 degrees QTcB Int : 553 ms Sinus tachycardia Prolonged QT Abnormal ECG No previous ECGs available Confirmed by Lester Arora ([id number]) on 01/27/2025 9:16:15 PM Referred By: Electronically Signed By: Lester Arora Transcribed By: MUS Signed By Lester Arora MD 01/27/252115 Normal [facility] echo transthoracicon [facility] echo transthoracic [facility] [address] Echocardiogram Signed Patient: Candy Booth MR#: [id number] : 1970 Acct:[id number] Age/Sex: 54 / F ADM Date: 01/25/25 Loc: Room: [address] [place] [address] Type: ADM IN Attending Dr: Camden Almodovar MD Ordering Provider: Tatyana Ohara MD Date of Service: 01/26/2508/17/1041 [facility] echo transthoracic: LV thrombus- full study with definity Copies to: MD Tatyana Rankin MD Height: 66 in Weight: 187 lb Performed By: Flaco Yen RDCS, T BSA: 1.9 m2 BP: 130/76 mmHg HR: 112 Reason For Study: LV thrombus- full study with definity Interpretation Summary Ejection Fraction = 30-35%. Mild concentric left ventricular hypertrophy. 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 Mild to moderate aortic regurgitation. There is trace tricuspid regurgitation. Mildly dilated ascending aorta 4.1cm. There is spontaneous echo contrast noted in the LV apex with a possible small fixed apical thrombus. There is no comparison study available. Procedure/Quality: A two-dimensional transthoracic echocardiogram with color flow, Doppler and injection of contrast agent Definity was performed. The study was technically good in quality. Left Ventricle: The left ventricular size is normal. Mild concentric left ventricular hypertrophy. Ejection Fraction = 30-35%. A variety of Doppler measurements indicate normal left ventricular diastolic function. 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 There is spontaneous echo contrast noted in the LV apex with a possible small fixed apical thrombus. Left Atrium: The left atrium appears normal in size. Right Atrium: The right atrium appears normal in size. Right Ventricle: The right ventricle is normal in size and function. Aortic Valve: The aortic valve is mildly sclerotic. No hemodynamically significant valvular aortic stenosis. Mild to moderate aortic regurgitation. Mitral Valve: The mitral valve is normal in structure. No significant mitral valve stenosis. There is no mitral regurgitation noted. Tricuspid Valve: The tricuspid valve is normal in structure. There is trace tricuspid regurgitation. Pulmonic Valve: The pulmonic valve is not well visualized. No significant pulmonic regurgitation. Arteries: The aortic root is normal size. Mildly dilated ascending aorta 4.1cm. Pericardium/Pleura: No pericardial effusion seen. IVC/Hepatic Veins: The inferior vena cava is normal in size, with a normal collapsibility index. Measurements with Normals IVSd: 1.5 cm (0.7-1.1 cm)LVIDd: 4.0 cm (3.7-5.4 cm) LVPWd: 1.5 cm (0.7-1.1 cm)LVIDs: 3.0 cm (2.3-3.6 cm) LA dimension: 4.3 cm (2.3-4.0 cm)Ao root diam: 3.3 cm(2.0-3.6 cm) asc Aorta Diam: 4.1 cm(2.1-3.4cm) Doppler with Normals RVSP(TR): 29.7 mmHg (18-35mmHg) LV V1 max: 109.0 cm/sec (0.7-1.7m/s)MV E max liya: 82.0 cm/sec(0.8-1.3m/s) MV A max liya: 54.9 cm/sec(0.0-0.0m/s) MV E/A: 1.5 (<1.5) MMode/2D Measurements Calculations TAPSE: 0.92 cm FS: 25.0 % Ao root area: LVOT diam: 2.1 cm RV S Liya: EDV(Teich): 8.6 cm2 LVOT area: 3.5 cm2 14.9 cm/sec 70.0 ml ESV(Teich): 35.0 ml EF(Teich): 50.0 % __ LVLd ap4: 9.3 cm SV(MOD-sp4): LAV(MOD-sp4): LA A2 area: 16.3 cm2 EDV(MOD-sp4): 51.0 ml 54.3 ml 158.0 ml LAV(MOD-sp2): LA A4 area: 18.0 cm2 LVLs ap4: 8.3 cm 47.5 ml LA length (vol): ESV(MOD-sp4): 4.9 cm 107.0 ml LA vol: 51.0 ml EF(MOD-sp4): 32.3 % LA vol index: 26.2 ml/m2 Doppler Measurements Calculations MV dec time: MV V2 max: E/E' lat: 4.9 MV dec slope: 0.07 sec 107.0 cm/sec E/E' med: 5.4 MV max P.6 mmHg 1164 cm/sec2 MV V2 mean: 58.6 cm/sec MV mean P.0 mmHg MV V2 VTI: 18.3 cm MVA(VTI): 2.8 cm2 __ Ao V2 max: LV V1 max PG: TV max PG: TR max liya: 147.0 cm/sec 4.8 mmHg 22.0 mmHg 233.0 cm/sec Ao max P.6 mmHg LV V1 mean PG: TR max P.7 mmHg Ao mean P.0 mmHg RAP systole: 8.0 mmHg 4.0 mmHg LV V1 mean: Ao V2 mean: 73.2 cm/sec 98.1 cm/sec LV V1 VTI: 15.0 cm Ao V2 VTI: 20.9 cm SHANNA(I,D): 2.5 cm2 SHANNA(V,D): 2.6 cm2 Transcribed By: TARAH Performed At: 01/26/25 1235 Signed By: Jaky Mar MD 01/26/25 2109 Normal [facility] Hemoglobin and Hematocriton 01-26-2025 Hematocrit (Bld) [Volume fraction] 31.0 % Low 34.0-46.4 [facility] Comment on above: Result Comment: PERF ORMED BY: [place] [address] PATHOLOGIST [employer] BLOUNT M.D. Performed By: #### H H #### [address] Hemoglobin (Bld) [Mass/Vol] 10.1 g/dL Low 11.8-15.4 [facility] Comment on above: Performed By: #### H H #### [address] Hematocrit (Bld) [Volume fraction] 29.8 % Low 34.0-46.4 [facility] Comment on above: Result Comment: PERF ORMED BY: [place] [address] PATHOLOGIST [employer] PROFESSION[employer] BLOUNT M.D. Performed By: #### C BC, PT #### [address] Hemoglobin (Bld) [Mass/Vol] 9.7 g/dL Low 11.8-15.4 [facility] Comment on above: Performed By: #### C BC, PT #### [address] Magnesiumon 01-26-2025 Magnesium [Mass/Vol] 1.8 mg/dL Low 1.9-2.7 [facility] Comment on above: Result Comment: PERF ORMED BY: [place] [address] PATHOLOGIST [employer] PROF[employer] BLOUNT M.D. Performed By: #### C UU #### [address] abdomen pelvis wo conon 0 01-25-2025 CT abdomen pelvis wo con [facility] [place] [address] [place] [address] CT Scan Report Signed Patient: Candy Booth MR#: [id number] : 1970 Acct:[id number] Age/Sex: 54 / F ADM Date: 01/25/25 Loc: Room: [address] [place] [address] Type: ADM IN Attending Dr: Camden Almodovar MD Copies to: Camden Almodovar MD Ordering Provider: Camden Almodovar MD Date of Service: 01/25/25 CT/CT abdomen pelvis wo con: Gi bleed CT abdomen pelvis wo con 01/25/2025 6:23 PM SIGNS AND SYMPTOMS: Gi bleed TECHNIQUE: Multidetector ct axial images of the abdomen and pelvis were obtained without IV contrast. Multiplanar reformats were performed and reviewed to further define anatomy and possible pathology. CT was performed with one or more of the following dose reduction techniques: Automated exposure control, adjustment of the mA and/or kV according to patient size, or use of iterative reconstruction technique. COMPARISON: None. FINDINGS: Lower Chest: Atherosclerotic changes are noted in the coronary arteries. There are small bilateral pleural effusions. ABDOMEN: Liver: The liver is hypoattenuating suggesting diffuse hepatic steatosis. Bile Ducts: Normal caliber. Gallbladder: A stone is present in the gallbladder. Pancreas: Within normal limits. Spleen: Within normal limits. Adrenals: There is a 12 mm left adrenal nodule. Kidneys: There is a 1 mm nonobstructing stone in the left renal collecting system. Pelvis: Reproductive Organs: No pelvic masses. Ureters: Within normal limits. Bladder: There is a Elaine catheter in the bladder lumen. Bowel: There is liquid stool in the sigmoid colon and rectum. There is adjacent fat stranding along the sigmoid colon and rectum suggesting colitis. Post-surgical changes are noted along the gastric lumen. Mesenteric Lymph Nodes: No enlarged mesenteric lymph nodes. Peritoneum: No ascites or free air, no fluid collection. Vessels: Atherosclerotic changes are noted in the abdominal aorta and its branches. Retroperitoneum: Within normal limits. Abdominal Wall: Anasarca is noted along the flanks bilaterally. Bones: There is posterior fusion in the lower lumbar spine. Degenerative changes are present throughout the thoracolumbar spine. CT/CT abdomen pelvis wo con IMPRESSION: There is liquid stool in the sigmoid colon and rectum. There is adjacent fat stranding along the sigmoid colon and rectum suggesting colitis. No bowel obstruction or obstructive uropathy. Findings suggest hepatic steatosis. There are small bilateral pleural effusions. A stone is present in the gallbladder. Impression dictated by: Lamonte Szymanski M.D. 01/25/2025 6:45 PM Dictation Location: [place] [address] Transcribed By: [facility] 01/25/251844 Dictated By: Lamonte Szymanski II, MD 01/25/251825 Signed By: 01/25/251844 Normal [facility] Complete Blood Count Auto Di ffon 01-25-2025 Basophils (Bld) [#/Vol] 0.0 10*3/uL Normal 0.0-0.2 [facility] Comment on above: Result Comment: PERF ORMED BY: [place] [address] PATHOLOGIST [employer] PROFESSIONAL CUCO BLOUNT M.D. Performed By: #### C NÉSTOR, PT #### [address] Basophils/100 WBC (Bld) 0.7 % Normal . [facility] Comment on above: Performed By: #### C NÉSTOR, PT #### [address] Eosinophils (Bld) [#/Vol] 0.1 10*3/uL Normal 0.0-0.45 [facility] Comment on above: Performed By: #### C NÉSTOR, PT #### [address] Eosinophils/100 WBC (Bld) 2.4 % Normal . [facility] Comment on above: Performed By: #### C BC, PT #### [address] Erythrocyte distribution width (RBC) [Ratio] 19.8 % High 11.9-15.3 [facility] Comment on above: Performed By: #### C BC, PT #### [address] Hematocrit (Bld) [Volume fraction] 30.9 % Low 34.0-46.4 [facility] Comment on above: Performed By: #### C BC, PT #### [address] Hemoglobin (Bld) [Mass/Vol] 10.2 g/dL Low 11.8-15.4 [facility] Comment on above: Performed By: #### C BC, PT #### [address] Lymphocytes (Bld) [#/Vol] 1.3 10*3/uL Normal 1.00-4.8 [facility] Comment on above: Performed By: #### C BC, PT #### [address] Lymphocytes/100 WBC (Bld) 27.9 % Normal . [facility] Comment on above: Performed By: #### C BC, PT #### [address] MCH (RBC) [Entitic mass] 27.6 pg Normal 24.7-34.3 [facility] Comment on above: Performed By: #### C BC, PT #### [address] MCV (RBC) [Entitic vol] 83.5 fL Normal 80-100 [facility] Comment on above: Performed By: #### C BC, PT #### [address] Mean Corpuscular HGB Conc 33.1 g/dL Normal 32.0-35.0 [facility] Comment on above: Performed By: #### C BC, PT #### [facility] [address] Monocytes (Bld) [#/Vol] 0.6 10*3/uL Normal 0.0-0.8 [facility] Comment on above: Performed By: #### C BC, PT #### [address] Monocytes/100 WBC (Bld) 13.6 % Normal . [facility] Comment on above: Performed By: #### C BC, PT #### [address] Neutrophils (Bld) [#/Vol] 2.5 10*3/uL Normal 1.8-7.7 [facility] Comment on above: Performed By: #### C BC, PT #### [address] Neutrophils/100 WBC (Bld) 55.4 % Normal . [facility] Comment on above: Performed By: #### C BC, PT #### [address] NRBC% 0.1 /100{WBC} Normal 0-0.5 [facility] Comment on above: Performed By: #### C BC, PT #### [address] Platelet mean volume (Bld) [Entitic vol] 8.7 fL Normal 6.3-10.7 [facility] Comment on above: Performed By: #### C BC, PT #### [place] [address] [place] Platelets (Bld) [#/Vol] 136 10*3/uL Low 150-450 [facility] Comment on above: Performed By: #### C BC, PT #### [place] [address] [place] RBC (Bld) [#/Vol] 3.70 10*6/uL Normal 3.60-5.00 [facility] Comment on above: Performed By: #### C BC, PT #### [facility] [address] WBC (Bld) [#/Vol] 4.6 10*3/uL Normal 3.8-11.6 [facility] Comment on above: Performed By: #### C BC, PT #### [facility] [address] White Blood Count 4.6 [CFU]/mL Normal 3.8-11.6 [facility] Comment on above: Performed By: #### C BC, PT #### [facility] [address] Erythrocyte distribution wid th Auto (RBC) [Ratio]Ordered By: Jackson Mondragon on 01-25-2025 Erythrocyte distribution width (RBC) [Ratio] 18.6 % High 11.0-15.0 [facility] Globulin Calc (S) [Mass/Vol] Ordered By: Jackson Mondragon on 01-25-2025 Globulin (S) [Mass/Vol] 4.2 g/dL [facility] Glomerular filtration rate ( GFR) estimation in non- AmericanOrdered By: Jackson Mondragon on 01-25-2025 GFR/1.73 sq M.predicted among non-blacks MDRD (S/P/Bld) [Vol rate/Area] mL/min/{1.73_m2} >=60 mL/min/1.73m 2 [facility] Hematocrit Auto (Bld) [Volum e fraction]Ordered By: Jackson Mondragon on 01-25-2025 Hematocrit (Bld) [Volume fraction] 31.0 % Low 36.0-48.0 [facility] Hemoglobin [Mass/volume] in BloodOrdered By: Jackson Mondragon on 01-25-2025 Hemoglobin (Bld) [Mass/Vol] 10.3 g/dL Low 12.0-16.0 [facility] Lactic Acidon 01-25-2025 Lactate [Moles/Vol] 0.9 mmol/L Normal 0.5-1.9 [facility] Comment on above: Result Comment: Lact ic Acid reference range has been updated to 0.5 ? 1.9 mmol/L and the critical range of 2.0 or greater. PERFORMED BY: [place] [address] PATHOLOGIST [employer] PROFESSIONAL [employer] BLOUNT M.D. Performed By: #### C BC, PT #### [address] Leukocytes [#/volume] correc patty for nucleated erythrocytes in Blood by Automated counOrdered By: Jackson Mondragon on 01-25-2025 WBC corrected for nucl RBC Auto (Bld) [#/Vol] 5.4 10 3/uL 4.0-11.0 [facility] MCH Auto (RBC) [Entitic mass ]Ordered By: Jackson Mondragon on 01-25-2025 MCH (RBC) [Entitic mass] 28.3 pg 26.7-34.0 [facility] MCHC Auto (RBC) [Mass/Vol]Or dered By: Jackson Mondragon on 01-25-2025 MCHC (RBC) [Mass/Vol] 33.2 g/dL 29.9-35.2 [facility] MCV Auto (RBC) [Entitic vol] Ordered By: Jackson Mondragon on 01-25-2025 MCV (RBC) [Entitic vol] 85.2 fL 81.0-99.0 [facility] No Panel InformationOrdered By: Jackson Mondragon on 01-25-2025 1.7 mg/dL Low 1.8-2.4 [facility] 1.9 g/dL Low 3.4-5.0 [facility] 152 U/L High 46-116 [facility] 18 U/L 14-59 [facility] 62 U/L High 15-37 [facility] 8.2 [facility] 4.0 mg/dL Low 7.0-18.0 [facility] 8.3 mg/dL Low 8.5-10.1 [facility] 103 mmol/L 98-107 [facility] 26.3 mmol/L 21.0-32.0 [facility] 0.49 mg/dL Low 0.55-1.02 [facility] >60 >=60 mL/min/1.7 3m 2 [facility] 84 mg/dL 74-106 [facility] 3.0 mmol/L Low 3.5-5.1 [facility] 140 mmol/L 136-145 [facility] 0.9 mg/dL 0.2-1.0 [facility] 6.1 g/dL Low 6.4-8.2 [facility] 26.7 ng/mL Abnormal 30.0-100.0 [facility] Platelet mean volume Auto (B ld) [Entitic vol]Ordered By: Jackson Mondragon on 01-25-2025 Platelet mean volume (Bld) [Entitic vol] 11.0 fL 9.5-13.5 [facility] Platelets Auto (Bld) [#/Vol] Ordered By: Jackson Mondragon on 01-25-2025 Platelets (Bld) [#/Vol] 139 10 3/uL Low 150-450 [facility] RBC Auto (Bld) [#/Vol]Ordere d By: Jackson Mondragon on 01-25-2025 RBC (Bld) [#/Vol] 3.64 10 6/uL Low 4.20-5.40 [facility] Serum or plasma albumin/glob ulin mass ratioOrdered By: Jackson Mondragon on 01-25-2025 Albumin/Globulin [Mass ratio] 0.5 {ratio} [facility] Serum or plasma anion gap de terminationOrdered By: Jackson Mondragon on 01-25-2025 Anion gap [Moles/Vol] 13.7 mmol/L [facility] Erythrocyte distribution wid th Auto (RBC) [Ratio]Ordered By: Jackson Mondragon on 01-24-2025 Erythrocyte distribution width (RBC) [Ratio] 19.2 % High 11.0-15.0 [facility] Globulin Calc (S) [Mass/Vol] Ordered By: Jackson Mondragon on 01-24-2025 Globulin (S) [Mass/Vol] 3.5 g/dL [facility] Glomerular filtration rate ( GFR) estimation in non- AmericanOrdered By: Jackson Mondragon on 01-24-2025 GFR/1.73 sq M.predicted among non-blacks MDRD (S/P/Bld) [Vol rate/Area] mL/min/{1.73_m2} >=60 mL/min/1.73m 2 [facility] Hematocrit Auto (Bld) [Volum e fraction]Ordered By: Jackson Mondragon on 01-24-2025 Hematocrit (Bld) [Volume fraction] 28.3 % Low 36.0-48.0 [facility] Hemoglobin [Mass/volume] in BloodOrdered By: Jackson Mondragon on 01-24-2025 Hemoglobin (Bld) [Mass/Vol] 9.3 g/dL Low 12.0-16.0 [facility] Leukocytes [#/volume] correc patty for nucleated erythrocytes in Blood by Automated counOrdered By: Jackson Mondragon on 01-24-2025 WBC corrected for nucl RBC Auto (Bld) [#/Vol] 5.5 10 3/uL 4.0-11.0 [facility] MCH Auto (RBC) [Entitic mass ]Ordered By: Jackson Mondragon on 01-24-2025 MCH (RBC) [Entitic mass] 27.5 pg 26.7-34.0 [facility] MCHC Auto (RBC) [Mass/Vol]Or dered By: Jackson Mondragon on 01-24-2025 MCHC (RBC) [Mass/Vol] 31.0 g/dL 29.9-35.2 [facility] MCV Auto (RBC) [Entitic vol] Ordered By: Jackson Mondragon on 01-24-2025 MCV (RBC) [Entitic vol] 88.6 fL 81.0-99.0 [facility] No Panel InformationOrdered By: Jackson Mondragon on 01-24-2025 1.7 mg/dL Low 1.8-2.4 [facility] 1.7 g/dL Low 3.4-5.0 [facility] 120 U/L High 46-116 [facility] 10 U/L Low 14-59 [facility] 63 U/L High 15-37 [facility] 10.9 [facility] 5.0 mg/dL Low 7.0-18.0 [facility] 7.9 mg/dL Low 8.5-10.1 [facility] 105 mmol/L 98-107 [facility] 24.6 mmol/L 21.0-32.0 [facility] 0.46 mg/dL Low 0.55-1.02 [facility] >60 >=60 mL/min/1.7 3m 2 [facility] 80 mg/dL 74-106 [facility] 3.0 mmol/L Low 3.5-5.1 [facility] 139 mmol/L 136-145 [facility] 0.7 mg/dL 0.2-1.0 [facility] 5.2 g/dL Low 6.4-8.2 [facility] Platelet mean volume Auto (B ld) [Entitic vol]Ordered By: Jackson Mondragon on 01-24-2025 Platelet mean volume (Bld) [Entitic vol] 10.3 fL 9.5-13.5 [facility] Platelets Auto (Bld) [#/Vol] Ordered By: Jackson Mondragon on 01-24-2025 Platelets (Bld) [#/Vol] 117 10 3/uL Low 150-450 [facility] RBC Auto (Bld) [#/Vol]Ordere d By: Jackson Mondragon on 01-24-2025 RBC (Bld) [#/Vol] 2.80 10 6/uL Low 4.20-5.40 [facility] Serum or plasma albumin/glob ulin mass ratioOrdered By: Jackson Mondragon on 01-24-2025 Albumin/Globulin [Mass ratio] 0.5 {ratio} [facility] Serum or plasma anion gap de terminationOrdered By: Jackson Mondragon on 01-24-2025 Anion gap [Moles/Vol] 12.4 mmol/L [facility] Erythrocyte distribution wid th Auto (RBC) [Ratio]Ordered By: Jackson Mondragon on 01-23-2025 Erythrocyte distribution width (RBC) [Ratio] 19.0 % High 11.0-15.0 [facility] Globulin Calc (S) [Mass/Vol] Ordered By: Jackson Mondragon on 01-23-2025 Globulin (S) [Mass/Vol] 3.5 g/dL [facility] Glomerular filtration rate ( GFR) estimation in non- AmericanOrdered By: Jackson Mondragon on 01-23-2025 GFR/1.73 sq M.predicted among non-blacks MDRD (S/P/Bld) [Vol rate/Area] mL/min/{1.73_m2} >=60 mL/min/1.73m 2 [facility] Hematocrit Auto (Bld) [Volum e fraction]Ordered By: Jackson Mondragon on 01-23-2025 Hematocrit (Bld) [Volume fraction] 25.9 % Low 36.0-48.0 [facility] Hemoglobin [Mass/volume] in BloodOrdered By: Jackson Mondragon on 01-23-2025 Hemoglobin (Bld) [Mass/Vol] 8.2 g/dL Low 12.0-16.0 [facility] Hemoglobin.gastrointestinal [Presence] in StoolOrdered By: Jackson Mondragon on 01-23-2025 Hemoglobin.gastroint estinal Ql (Stl) Positive Abnormal [facility] Iron binding capacity [Mass/ volume] in Serum or PlasmaOrdered By: Jackson Mondragon on 01-23-2025 Iron binding capacity [Mass/Vol] 126.0 ug/dL Low 250.0-450.0 [facility] Iron saturation [Mass Fracti on] in Serum or PlasmaOrdered By: Jackson Mondragon on 01-23-2025 Iron saturation [Mass fraction] 6.3 % [facility] Leukocytes [#/volume] correc patty for nucleated erythrocytes in Blood by Automated counOrdered By: Jackson Mondragon on 01-23-2025 WBC corrected for nucl RBC Auto (Bld) [#/Vol] 8.6 10 3/uL 4.0-11.0 [facility] MCH Auto (RBC) [Entitic mass ]Ordered By: Jackson Mondragon on 01-23-2025 MCH (RBC) [Entitic mass] 27.8 pg 26.7-34.0 [facility] MCHC Auto (RBC) [Mass/Vol]Or dered By: Jackson Mondragon on 01-23-2025 MCHC (RBC) [Mass/Vol] 31.1 g/dL 29.9-35.2 [facility] MCV Auto (RBC) [Entitic vol] Ordered By: Jackson Mondragon on 01-23-2025 MCV (RBC) [Entitic vol] 89.2 fL 81.0-99.0 [facility] No Panel InformationOrdered By: Jackson Mondragon on 01-23-2025 754 pg/mL 232-1245 [facility] 3.20 ng/mL Low 8.60-58.90 [facility] 95.0 ng/mL 8.0-252.0 [facility] 8.0 ug/dL Low 50.0-170.0 [facility] 1.9 mg/dL 1.8-2.4 [facility] 2.6 mg/dL 2.6-4.7 [facility] 2.2 g/dL Low 3.4-5.0 [facility] 126 U/L High 46-116 [facility] 17 U/L 14-59 [facility] 98 U/L High 15-37 [facility] 7.7 [facility] 5.0 mg/dL Low 7.0-18.0 [facility] 8.1 mg/dL Low 8.5-10.1 [facility] 108 mmol/L High 98-107 [facility] 22.9 mmol/L 21.0-32.0 [facility] 0.65 mg/dL 0.55-1.02 [facility] >60 >=60 mL/min/1.7 3m 2 [facility] 110 mg/dL High 74-106 [facility] 3.0 mmol/L Low 3.5-5.1 [facility] 142 mmol/L 136-145 [facility] 1.3 mg/dL High 0.2-1.0 [facility] 5.7 g/dL Low 6.4-8.2 [facility] Platelet mean volume Auto (B ld) [Entitic vol]Ordered By: Jackson Mondragon on 01-23-2025 Platelet mean volume (Bld) [Entitic vol] 10.6 fL 9.5-13.5 [facility] Platelets Auto (Bld) [#/Vol] Ordered By: Jackson Mondragon on 01-23-2025 Platelets (Bld) [#/Vol] 126 10 3/uL Low 150-450 [facility] RBC Auto (Bld) [#/Vol]Ordere d By: Jackson Mondragon on 01-23-2025 RBC (Bld) [#/Vol] 2.88 10 6/uL Low 4.20-5.40 [facility] Serum or plasma albumin/glob ulin mass ratioOrdered By: Jackson Mondragon on 01-23-2025 Albumin/Globulin [Mass ratio] 0.6 {ratio} [facility] Serum or plasma anion gap de terminationOrdered By: Jackson Mondragon on 01-23-2025 Anion gap [Moles/Vol] 14.1 mmol/L [facility] Basophils Auto (Bld) [#/Vol] Ordered By: Maureen Gilmore on 01-22-2025 Basophils (Bld) [#/Vol] 0.0 10 3/uL 0.0-0.1 [facility] Basophils/100 WBC Auto (Bld) Ordered By: Maureen Gilmore on 01-22-2025 Basophils/100 WBC (Bld) 0.2 % 0.2-2.0 [facility] Buprenorphine [Presence] in UrineOrdered By: Jackson Mondragon on 01-22-2025 Buprenorphine Ql (U) Negative NEGATIVE [facility] Eosinophils/100 WBC Auto (Bl d)Ordered By: Maureen Gilmore on 01-22-2025 Eosinophils/100 WBC (Bld) 0.1 % Low 0.9-7.0 [facility] Erythrocyte distribution wid th Auto (RBC) [Ratio]Ordered By: Maureen Gilmore on 01-22-2025 Erythrocyte distribution width (RBC) [Ratio] 19.4 % High 11.0-15.0 [facility] Globulin Calc (S) [Mass/Vol] Ordered By: Isha Holley on 01-22-2025 Globulin (S) [Mass/Vol] 5.2 g/dL [facility] Glomerular filtration rate ( GFR) estimation in non- AmericanOrdered By: Isha Holley on 01-22-2025 GFR/1.73 sq M.predicted among non-blacks MDRD (S/P/Bld) [Vol rate/Area] mL/min/{1.73_m2} >=60 mL/min/1.73m 2 [facility] Hematocrit Auto (Bld) [Volum e fraction]Ordered By: Maureen Gilmore on 01-22-2025 Hematocrit (Bld) [Volume fraction] 36.3 % 36.0-48.0 [facility] Hemoglobin [Mass/volume] in BloodOrdered By: Maureen Gilmore on 01-22-2025 Hemoglobin (Bld) [Mass/Vol] 11.4 g/dL Low 12.0-16.0 [facility] INR in Platelet poor plasma by Coagulation assayOrdered By: Isha Holley on 01-22-2025 INR Coag (PPP) [Relative time] 1.05 {INR} [facility] Leukocytes [#/volume] correc patty for nucleated erythrocytes in Blood by Automated counOrdered By: Maureen Gilmore on 01-22-2025 WBC corrected for nucl RBC Auto (Bld) [#/Vol] 10.7 10 3/uL 4.0-11.0 [facility] Lymphocytes Auto (Bld) [#/Vo l]Ordered By: Maureen Gilmore on 01-22-2025 Lymphocytes (Bld) [#/Vol] 0.9 10 3/uL Low 1.2-3.8 [facility] Lymphocytes/100 WBC Auto (Bl d)Ordered By: Maureen Gilmore on 01-22-2025 Lymphocytes/100 WBC (Bld) 8.1 % Low 20.5-60.0 [facility] MCH Auto (RBC) [Entitic mass ]Ordered By: Maureen Gilmore on 01-22-2025 MCH (RBC) [Entitic mass] 27.7 pg 26.7-34.0 [facility] MCHC Auto (RBC) [Mass/Vol]Or dered By: Maureen Gilmore on 01-22-2025 MCHC (RBC) [Mass/Vol] 31.4 g/dL 29.9-35.2 [facility] MCV Auto (RBC) [Entitic vol] Ordered By: Maureen Gilmore on 01-22-2025 MCV (RBC) [Entitic vol] 88.1 fL 81.0-99.0 [facility] Methadone [Presence] in Urin e by Screen methodOrdered By: Jackson Mondragon on 01-22-2025 Methadone Screen Ql (U) Negative NEGATIVE [facility] Monocytes Auto (Bld) [#/Vol] Ordered By: Maureen Gilmore on 01-22-2025 Monocytes (Bld) [#/Vol] 0.6 10 3/uL 0.3-0.8 [facility] Monocytes/100 WBC Auto (Bld) Ordered By: Maureen Gilmore on 01-22-2025 Monocytes/100 WBC (Bld) 5.1 % 1.7-12.0 [facility] Neutrophils Auto (Bld) [#/Vo l]Ordered By: Maureen Gilmore on 01-22-2025 Neutrophils (Bld) [#/Vol] 9.2 10 3/uL High 1.4-6.5 [facility] Neutrophils/100 WBC Auto (Bl d)Ordered By: Maureen Gilmore on 01-22-2025 Neutrophils/100 WBC (Bld) 85.8 % High 43.0-75.0 [facility] No Panel InformationOrdered By: Jackson Mondragon on 01-22-2025 Negative NEGATIVE [facility] Positive Abnormal NEGATIVE [facility] No Panel InformationOrdered By: Isha Holley on 01-22-2025 28.4 pg/mL 4.0-51.3 [facility] 1.7 mg/dL High 0.2-1.0 [facility] 1.9 mmol/L 0.4-2.0 [facility] 1.8 g/dL Low 3.4-5.0 [facility] 202 U/L High 46-116 [facility] 20 U/L 14-59 [facility] 99 U/L High 15-37 [facility] 3.6 [facility] 3.0 mg/dL Low 7.0-18.0 [facility] 8.4 mg/dL Low 8.5-10.1 [facility] 102 mmol/L 98-107 [facility] 25.3 mmol/L 21.0-32.0 [facility] 0.83 mg/dL 0.55-1.02 [facility] >60 >=60 mL/min/1.7 3m 2 [facility] 102 mg/dL 74-106 [facility] 3.5 mmol/L 3.5-5.1 [facility] 137 mmol/L 136-145 [facility] 7.0 g/dL 6.4-8.2 [facility] Positive POSITIVE [facility] 0 mmol/L <2.0-2.0 [facility] 23.5 mmol/L 22.0-26.0 [facility] 3 [facility] [place] [facility] 94.8 % [facility] 32.0 mm[Hg] Low 35.0-45.0 [facility] 7.475 High 7.350-7.450 [facility] 68.9 mm[Hg] Low 80.0-100.0 [facility] R RADIAL [facility] YES-[facility] YES [facility] NONE SEEN #/LPF NONE SEEN [facility] SMALL Abnormal NEGATIVE [facility] None Seen #/HPF None Seen [facility] MODERATE Abnormal NEGATIVE [facility] LARGE #/HPF Abnormal NONE SEEN [facility] CLOUDY Abnormal CLEAR [facility] NONE SEEN NONE SEEN [facility] ORANGE Abnormal YELLOW [facility] 2-5 #/HPF Abnormal 0-2 [facility] Negative NEGATIVE [facility] RARE #/LPF NONE/RARE [facility] >100 #/HPF Abnormal NONE SEEN [facility] Positive Abnormal NEGATIVE [facility] 6.0 5.0-9.0 [facility] 100 mg/dL Abnormal NEG/TRACE [facility] 1.020 1.005-1.025 [facility] 4.0 EU/dL Abnormal 0.2-1.0 [facility] No Panel InformationOrdered By: Maureen Gilmore on 01-22-2025 0.0 10 3/uL 0.0-0.7 [facility] 0.07 10 3/uL High 0.00-0.03 [facility] 0.7 % High 0.0-0.5 [facility] Platelet mean volume Auto (B ld) [Entitic vol]Ordered By: Maureen Gilmore on 01-22-2025 Platelet mean volume (Bld) [Entitic vol] 10.3 fL 9.5-13.5 [facility] Platelets Auto (Bld) [#/Vol] Ordered By: Maureen Gilmore on 01-22-2025 Platelets (Bld) [#/Vol] 177 10 3/uL 150-450 [facility] Prothrombin time (PT)Ordered By: Isha Holley on 01-22-2025 PT Coag (PPP) [Time] 11.1 s 9.0-11.6 [facility] RBC Auto (Bld) [#/Vol]Ordere d By: Maureen Gilmore on 01-22-2025 RBC (Bld) [#/Vol] 4.12 10 6/uL Low 4.20-5.40 [facility] Serum or plasma albumin/glob ulin mass ratioOrdered By: Isha Holley on 01-22-2025 Albumin/Globulin [Mass ratio] 0.3 {ratio} [facility] Serum or plasma anion gap de terminationOrdered By: Isha Holley on 01-22-2025 Anion gap [Moles/Vol] 13.2 mmol/L [facility] Urine Cultureon 01-22-2025 Bacteria identified Cx Nom (U) ORGANISM: Escherichia coli (O:ESCCOL) [place] Count >100,000 ORGANISM: Escherichia coli (O:ESCCOL) [place] Count >100,000 Aerobic LUBNA Charge (NMIC56) ----- SUSCEPTIBILITY ---- ORGANISM: O:ESCCOL ANTIBIOTIC INTERPRETATION LUBNA Amikacin S <16 Amoxacillin/K Clavulanate S <8 Ampicillin S <8 Ampicillin/Sulbactam S <4 Aztreonam S <4 Cefazolin S <2 Cefepime S <2 Ceftazidime S <1 Ceftazidime/Avibacta m S 8 Ceftolozane/Tazobact am S <2 Ceftriaxone S <1 Cefuroxime S <4 Ciprofloxacin S <0.25 Ertapenem S <0.5 Gentamicin S <2 Levofloxacin S <0.5 Meropenem S <1 Meropenem/Vaborbacta m S <2 Nitrofurantoin S <32 Piperacillin/Tazobac rodriguez S <8 Tetracycline S <4 Tigecycline S <2 Tobramycin S <2 Trimethoprim/Sulfame thoxazole S <0.5 Aerobic LUBNA Charge (NMIC56) ----- SUSCEPTIBILITY ---- ORGANISM: O:ESCCOL ANTIBIOTIC INTERPRETATION LUBNA Amikacin S <16 Amoxacillin/K Clavulanate S <8 Ampicillin S <8 Ampicillin/Sulbactam S <4 Aztreonam S <4 Cefazolin S <2 Cefepime [...] RESISTANT TO ALL B-LACTAM DRUGS. PERFORMED BY: [facility] [address] [place] [address] PATHOLOGIST [employer] PROFESSIONAL [employer]CO BLOUNT M.D. Normal [facility] Comment on above: Performed By: #### C UU #### [facility] [address] Urine tricyclic antidepressa nt measurementOrdered By: Jackson Mondragon on 01-22-2025 Tricyclic antidepressants (U) [Mass/Vol] Positive Abnormal NEGATIVE [facility] oxyCODONE+oxyMORphone [Prese nce] in Urine by Screen methodOrdered By: Jackson Mondragon on 01-22-2025 oxyCODONE+oxyMORphon e Screen Ql (U) Negative NEGATIVE [facility] BASIC METABOLIC PANELon 12-25 Anion gap [Moles/Vol] 9 mmol/L Normal 5-15 [facility] Comment on above: Performed By: #### B MP #### [facility] ([address] [address] VIR Calcium [Mass/Vol] 8.5 mg/dL Normal 8.5-10.5 [facility] Comment on above: Performed By: #### B MP #### [facility] ([address] [address] VIR Chloride [Moles/Vol] 105 mmol/L Normal 98-109 [facility] Comment on above: Performed By: #### B MP #### [facility] ([address] [address] VIR CO2 [Moles/Vol] 25 mmol/L Normal 22-32 [facility] [facility] Comment on above: Performed By: #### B MP #### [facility] ([address] [address] VIR Creatinine [Mass/Vol] 0.66 mg/dL Normal 0.40-1.00 [facility] Comment on above: Result Comment: METH OD TRACEABLE TO IDMS STANDARD Performed By: #### B MP #### [facility] ([address] [address] VIR EGFR (CKD-EPI) NON-RACE DEPENDENT >^90 Normal >=60 [facility] Comment on above: Result Comment: eGFR not reported due to non-numeric value for Creatinine. EGFR not calculated due to patient's gender not being defined. Reported eGFR is based on the CKD-EPI 2020 equation that does not use a race coefficient. Performed By: #### B MP #### [facility] ([address] [address] VIR Glucose [Mass/Vol] 123 mg/dL High 65-99 [facility] Comment on above: Performed By: #### B MP #### [facility] ([address] [address] VIR Potassium [Moles/Vol] 3.6 mmol/L Normal 3.5-5.0 [facility] Comment on above: Performed By: #### B MP #### [address] [address] VIR Sodium [Moles/Vol] 139 mmol/L Normal 134-146 [facility] Comment on above: Performed By: #### B MP #### [facility] ([address] [address] VIR Urea nitrogen [Mass/Vol] mg/dL Low 5-23 [facility] Comment on above: Performed By: #### B MP #### [facility] ([address] [address] VIR CBC WITH AUTO DIFFERENTIALon 01-20-2025 BASOPHILS ABSOLUTE COUNT (10*3/UL) BY AUTOMATED COUNT 0.0 10*3/uL Normal 0.0-0.2 [facility] Comment on above: Performed By: #### C BCA #### [facility] ([address] [address] VIR BASOPHILS RELATIVE PERCENT BY AUTOMATED COUNT 0.5 % Normal [facility] Comment on above: Performed By: #### C BCA #### [facility] ([address] [place] [address] VIR CELLAVISION DIFFERENTIAL TYPE AUTOMATED DIFFERENTIAL Normal [facility] Comment on above: Performed By: #### C BCA #### [facility] ([address] [place] [address] VIR Eosinophils (Bld) [#/Vol] 0.1 10*3/uL Normal 0.0-0.4 [facility] Comment on above: Performed By: #### C BCA #### [facility] ([address] [address] VIR EOSINOPHILS RELATIVE PERCENT BY AUTOMATED COUNT 1.4 % Normal [facility] Comment on above: Performed By: #### C BCA #### [facility] ([address] [address] VIR Erythrocyte distribution width (RBC) [Ratio] 20.7 % High 11.5-15 [facility] Comment on above: Performed By: #### C BCA #### [facility] ([address] [address] VIR Hematocrit (Bld) [Volume fraction] 32.9 % Low 35-47 [facility] Comment on above: Performed By: #### C BCA #### [facility] ([address] [place] [address] VIR Hemoglobin (Bld) [Mass/Vol] 10.5 g/dL Low 11.7-15.5 [facility] Comment on above: Performed By: #### C BCA #### [facility] ([address] [address] VIR LYMPHOCYTES ABSOLUTE COUNT (10*3/UL) BY AUTOMATED COUNT 1.3 10*3/uL Normal 1.0-3.5 [facility] Comment on above: Performed By: #### C BCA #### [facility] [place] [address] VIR LYMPHOCYTES RELATIVE PERCENT BY AUTOMATED COUNT 27.1 % Normal [facility] Comment on above: Performed By: #### C BCA #### [facility] ([address] [place] [address] VIR MCH (RBC) [Entitic mass] 27.3 pg Normal 27-34 [facility] Comment on above: Performed By: #### C BCA #### [facility] ([address] [place] [address] VIR MCHC (RBC) [Mass/Vol] 31.8 g/dL Low 32-36 [facility] Comment on above: Performed By: #### C BCA #### [facility] ([address] [place] [address] VIR MCV (RBC) [Entitic vol] 86 fL Normal 80-100 [facility] Comment on above: Performed By: #### C BCA #### [facility] ([address] [place] [address] VIR MONOCYTES ABSOLUTE COUNT (10*3/UL) BY AUTOMATED COUNT 0.3 10*3/uL Normal 0.0-0.9 [facility] Comment on above: Performed By: #### C BCA #### [facility] ([address] [place] [address] VIR MONOCYTES RELATIVE PERCENT BY AUTOMATED COUNT 7.4 % Normal [facility] Comment on above: Performed By: #### C BCA #### [facility] ([address] [place] [address] VIR NEUTROPHILS ABSOLUTE COUNT BY AUTOMATED COUNT 3.0 10*3/uL Normal 1.5-6.6 [facility] Comment on above: Performed By: #### C BCA #### [facility] ([address] [place] [address] VIR NEUTROPHILS RELATIVE PERCENT BY AUTOMATED COUNT 63.6 % Normal [facility] Comment on above: Performed By: #### C BCA #### [facility] ([address] [place] [address] VIR Platelet mean volume (Bld) [Entitic vol] 7.8 fL Normal 7-12 [facility] Comment on above: Performed By: #### C BCA #### [facility] ([address] [place] [address] VIR Platelets (Bld) [#/Vol] 283 10*3/uL Normal 150-450 [facility] Comment on above: Performed By: #### C BCA #### [facility] ([address] [place] [address] VIR RBC COUNT 3.83 X10E12/L Normal 3.8-5.2 [facility] Comment on above: Performed By: #### C BCA #### [facility] ([address] [place] [address] VIR WBC (Bld) [#/Vol] 4.7 10*3/uL Normal 4-11 [facility] Comment on above: Performed By: #### C BCA #### [facility] ([address] [place] [address] VIR BASIC METABOLIC PANELon - Anion gap [Moles/Vol] 9 mmol/L Normal 5-15 [facility] Comment on above: Performed By: #### B MP #### [facility] ([address] [place] [address] VIR Calcium [Mass/Vol] 8.1 mg/dL Low 8.5-10.5 [facility] Comment on above: Performed By: #### B MP #### [facility] ([address] [place] [address] VIR Chloride [Moles/Vol] 101 mmol/L Normal 98-109 [facility] Comment on above: Performed By: #### B MP #### [facility] ([address] [place] [address] VIR CO2 [Moles/Vol] 27 mmol/L Normal 22-32 [facility] Comment on above: Performed By: #### B MP #### [facility] ([address] [place] [address] VIR Creatinine [Mass/Vol] 0.38 mg/dL Low 0.40-1.00 [facility] Comment on above: Result Comment: METH OD TRACEABLE TO IDMS STANDARD Performed By: #### B MP #### [facility] ([address] [address] VIR EGFR (CKD-EPI) NON-RACE DEPENDENT >^90 Normal >=60 [facility] Comment on above: Result Comment: eGFR not reported due to non-numeric value for Creatinine. Reported eGFR is based on the CKD-EPI 2020 equation that does not use a race coefficient. Performed By: #### B MP #### [facility] ([address] [place] [address] VIR Glucose [Mass/Vol] 99 mg/dL Normal 65-99 [facility] Comment on above: Performed By: #### B MP #### [facility] ([address] [place] [address] VIR Potassium [Moles/Vol] 3.0 mmol/L Low 3.5-5.0 [facility] Comment on above: Performed By: #### B MP #### [facility] ([address] [place] [address] VIR Sodium [Moles/Vol] 137 mmol/L Normal 134-146 [facility] Comment on above: Performed By: #### B MP #### [facility] [address] VIR Urea nitrogen [Mass/Vol] mg/dL Low 5-23 [facility] Comment on above: Performed By: #### B MP #### [address] [address] VIR CBC WITH AUTO DIFFERENTIALon 01-07-2025 BASOPHILS ABSOLUTE COUNT (10*3/UL) BY AUTOMATED COUNT 0.0 10*3/uL Normal 0.0-0.2 [facility] Comment on above: Performed By: #### C BCA #### [address] [address] VIR BASOPHILS RELATIVE PERCENT BY AUTOMATED COUNT 0.4 % Normal [facility] Comment on above: Performed By: #### C BCA #### [address] [address] VIR CELLAVISION DIFFERENTIAL TYPE AUTOMATED DIFFERENTIAL Normal [facility] Comment on above: Performed By: #### C BCA #### [address] [address] VIR Eosinophils (Bld) [#/Vol] 0.1 10*3/uL Normal 0.0-0.4 [facility] Comment on above: Performed By: #### C BCA #### [address] [address] VIR EOSINOPHILS RELATIVE PERCENT BY AUTOMATED COUNT 2.8 % Normal [facility] Comment on above: Performed By: #### C BCA #### [address] [address] VIR Erythrocyte distribution width (RBC) [Ratio] 18.4 % High 11.5-15 [facility] Comment on above: Performed By: #### C BCA #### [address] [address] VIR Hematocrit (Bld) [Volume fraction] 25.1 % Low 35-47 [facility] Comment on above: Performed By: #### C BCA #### [facility] ([address] [address] VIR Hemoglobin (Bld) [Mass/Vol] 8.2 g/dL Low 11.7-15.5 [facility] Comment on above: Performed By: #### C BCA #### [facility] ([address] [address] VIR LYMPHOCYTES ABSOLUTE COUNT (10*3/UL) BY AUTOMATED COUNT 1.2 10*3/uL Normal 1.0-3.5 [facility] Comment on above: Performed By: #### C BCA #### [facility] ([address] [address] VIR LYMPHOCYTES RELATIVE PERCENT BY AUTOMATED COUNT 39.0 % Normal [facility] Comment on above: Performed By: #### C BCA #### [facility] ([address] [address] VIR MCH (RBC) [Entitic mass] 28.8 pg Normal 27-34 [facility] Comment on above: Performed By: #### C BCA #### [facility] ([address] [address] VIR MCHC (RBC) [Mass/Vol] 32.5 g/dL Normal 32-36 [facility] Comment on above: Performed By: #### C BCA #### [facility] ([address] [address] VIR MCV (RBC) [Entitic vol] 89 fL Normal 80-100 [facility] Comment on above: Performed By: #### C BCA #### [facility] ([address] [address] VIR MONOCYTES ABSOLUTE COUNT (10*3/UL) BY AUTOMATED COUNT 0.3 10*3/uL Normal 0.0-0.9 [facility] Comment on above: Performed By: #### C BCA #### [facility] ([address] [address] VIR MONOCYTES RELATIVE PERCENT BY AUTOMATED COUNT 8.2 % Normal [facility] Comment on above: Performed By: #### C BCA #### [facility] ([address] [address] VIR NEUTROPHILS ABSOLUTE COUNT BY AUTOMATED COUNT 1.5 10*3/uL Normal 1.5-6.6 [facility] Comment on above: Performed By: #### C BCA #### [facility] ([address] [address] VIR NEUTROPHILS RELATIVE PERCENT BY AUTOMATED COUNT 49.6 % Normal [facility] Comment on above: Performed By: #### C BCA #### [facility] ([address] [address] VIR Platelet mean volume (Bld) [Entitic vol] 7.9 fL Normal 7-12 [facility] Comment on above: Performed By: #### C BCA #### [facility] ([address] [address] VIR Platelets (Bld) [#/Vol] 174 10*3/uL Normal 150-450 [facility] Comment on above: Performed By: #### C BCA #### [facility] ([address] [address] VIR RBC COUNT 2.83 X10E12/L Low 3.8-5.2 [facility] Comment on above: Performed By: #### C BCA #### [facility] ([address] [place] [address] VIR WBC (Bld) [#/Vol] 3.1 10*3/uL Low 4-11 [facility] Comment on above: Performed By: #### C BCA #### [facility] ([facility]) [address] [place] [place] [address] VIR Glomerular filtration rate ( GFR) estimation in non- AmericanOrdered By: Jackson Mondragon on 12-05-2024 GFR/1.73 sq M.predicted among non-blacks MDRD (S/P/Bld) [Vol rate/Area] mL/min/{1.73_m2} >=60 mL/min/1.73m 2 [facility] - Chemistry and C hemistry - challengeOrdered By: Jackson Mondragon on 12-05-2024 Calcium [Mass/Vol] 8.1 mg/dL Low 8.5-10.1 [facility] Chloride [Moles/Vol] 103 mmol/L 98-107 [facility] CO2 [Moles/Vol] 22.3 mmol/L 21.0-32.0 [facility] Creatinine [Mass/Vol] 0.70 mg/dL 0.55-1.02 [facility] GFR/1.73 sq M.predicted MDRD (S/P/Bld) [Vol rate/Area] mL/min/{1.73_m2} >=60 mL/min/1.73m 2 [facility] Glucose [Mass/Vol] 84 mg/dL 74-106 [facility] Potassium [Moles/Vol] 3.5 mmol/L 3.5-5.1 [facility] Sodium [Moles/Vol] 134 mmol/L Low 136-145 [facility] Urea nitrogen [Mass/Vol] 32.0 mg/dL High 7.0-18.0 [facility] Urea nitrogen/Creatinine [Mass ratio] 45.7 mg/mg [facility] No Panel InformationOrdered By: Jackson Mondragon on 12-05-2024 45.7 [facility] 32.0 mg/dL High 7.0-18.0 [facility] 8.1 mg/dL Low 8.5-10.1 [facility] 103 mmol/L 98-107 [facility] 22.3 mmol/L 21.0-32.0 [facility] 0.70 mg/dL 0.55-1.02 [facility] >60 >=60 mL/min/1.7 3m 2 [facility] 84 mg/dL 74-106 [facility] 3.5 mmol/L 3.5-5.1 [facility] 134 mmol/L Low 136-145 [facility] Serum or plasma anion gap de terminationOrdered By: Jackson Mondragon on 12-05-2024 Anion gap [Moles/Vol] 12.2 mmol/L [facility] Glomerular filtration rate ( GFR) estimation in non- AmericanOrdered By: Jackson Mondragon on 12-04-2024 GFR/1.73 sq M.predicted among non-blacks MDRD (S/P/Bld) [Vol rate/Area] 42 mL/min/{1.73_m2} Low >=60 mL/min/1.73m 2 [facility] - Chemistry and C hemistry - challengeOrdered By: Jackson Mondragon on 12-04-2024 Calcium [Mass/Vol] 8.5 mg/dL 8.5-10.1 [facility] Chloride [Moles/Vol] 99 mmol/L 98-107 [facility] CO2 [Moles/Vol] 20.4 mmol/L Low 21.0-32.0 [facility] Creatinine [Mass/Vol] 1.32 mg/dL High 0.55-1.02 [facility] GFR/1.73 sq M.predicted MDRD (S/P/Bld) [Vol rate/Area] 50 mL/min/{1.73_m2} Low >=60 mL/min/1.73m 2 [facility] Glucose [Mass/Vol] 105 mg/dL 74-106 [facility] Potassium [Moles/Vol] 3.9 mmol/L 3.5-5.1 [facility] Sodium [Moles/Vol] 131 mmol/L Low 136-145 [facility] Urea nitrogen [Mass/Vol] 35.0 mg/dL High 7.0-18.0 [facility] Urea nitrogen/Creatinine [Mass ratio] 26.5 mg/mg [facility] No Panel InformationOrdered By: Jackson Mondragon on 12-04-2024 26.5 [facility] 35.0 mg/dL High 7.0-18.0 [facility] 8.5 mg/dL 8.5-10.1 [facility] 99 mmol/L 98-107 [facility] 20.4 mmol/L Low 21.0-32.0 [facility] 1.32 mg/dL High 0.55-1.02 [facility] 50 Low >=60 mL/min/1.7 3m 2 [facility] 105 mg/dL 74-106 [facility] 3.9 mmol/L 3.5-5.1 [facility] 131 mmol/L Low 136-145 [facility] Serum or plasma anion gap de terminationOrdered By: Jackson Mondragon on 12-04-2024 Anion gap [Moles/Vol] 15.5 mmol/L [facility] Globulin Calc (S) [Mass/Vol] Ordered By: Jackson Mondragon on 12-03-2024 Globulin (S) [Mass/Vol] 4.6 g/dL [facility] Glomerular filtration rate ( GFR) estimation in non- AmericanOrdered By: Jackson Mondragon on 12-03-2024 GFR/1.73 sq M.predicted among non-blacks MDRD (S/P/Bld) [Vol rate/Area] mL/min/{1.73_m2} >=60 mL/min/1.73m 2 [facility] - Chemistry and C hemistry - challengeOrdered By: Jackson Mondragon on 12-03-2024 Albumin [Mass/Vol] 1.5 g/dL Low 3.4-5.0 [facility] ALP [Catalytic activity/Vol] 260 U/L High 46-116 [facility] ALT [Catalytic activity/Vol] 39 U/L 14-59 [facility] AST [Catalytic activity/Vol] 125 U/L High 15-37 [facility] Bilirubin [Mass/Vol] 0.8 mg/dL 0.2-1.0 [facility] Calcium [Mass/Vol] 9.0 mg/dL 8.5-10.1 [facility] Chloride [Moles/Vol] 97 mmol/L Low 98-107 [facility] CO2 [Moles/Vol] 18.2 mmol/L Low 21.0-32.0 [facility] Creatinine [Mass/Vol] 0.94 mg/dL 0.55-1.02 [facility] GFR/1.73 sq M.predicted MDRD (S/P/Bld) [Vol rate/Area] mL/min/{1.73_m2} >=60 mL/min/1.73m 2 [facility] Glucose [Mass/Vol] 118 mg/dL High 74-106 [facility] Potassium [Moles/Vol] 4.3 mmol/L 3.5-5.1 [facility] Protein [Mass/Vol] 6.1 g/dL Low 6.4-8.2 [facility] Sodium [Moles/Vol] 128 mmol/L Low 136-145 [facility] Urea nitrogen [Mass/Vol] 25.0 mg/dL High 7.0-18.0 [facility] Urea nitrogen/Creatinine [Mass ratio] 26.6 mg/mg [facility] No Panel InformationOrdered By: Jackson Mondragon on 12-03-2024 1.5 g/dL Low 3.4-5.0 [facility] 260 U/L High 46-116 [facility] 39 U/L 14-59 [facility] 125 U/L High 15-37 [facility] 26.6 [facility] 25.0 mg/dL High 7.0-18.0 [facility] 9.0 mg/dL 8.5-10.1 [facility] 97 mmol/L Low 98-107 [facility] 18.2 mmol/L Low 21.0-32.0 [facility] 0.94 mg/dL 0.55-1.02 [facility] >60 >=60 mL/min/1.7 3m 2 [facility] 118 mg/dL High 74-106 [facility] 4.3 mmol/L 3.5-5.1 [facility] 128 mmol/L Low 136-145 [facility] 0.8 mg/dL 0.2-1.0 [facility] 6.1 g/dL Low 6.4-8.2 [facility] Serum or plasma albumin/glob ulin mass ratioOrdered By: Jackson Mondragon on 12-03-2024 Albumin/Globulin [Mass ratio] 0.3 {ratio} [facility] Serum or plasma anion gap de terminationOrdered By: Jackson Mondragon on 12-03-2024 Anion gap [Moles/Vol] 17.1 mmol/L [facility] Erythrocyte distribution wid th Auto (RBC) [Ratio]Ordered By: Jackson Mondragon on 12-02-2024 Erythrocyte distribution width (RBC) [Ratio] 14.6 % 11.0-15.0 [facility] Globulin Calc (S) [Mass/Vol] Ordered By: Jackson Mondragon on 12-02-2024 Globulin (S) [Mass/Vol] 4.4 g/dL [facility] Glomerular filtration rate ( GFR) estimation in non- AmericanOrdered By: Jackson Mondragon on 12-02-2024 GFR/1.73 sq M.predicted among non-blacks MDRD (S/P/Bld) [Vol rate/Area] mL/min/{1.73_m2} >=60 mL/min/1.73m 2 [facility] Hematocrit Auto (Bld) [Volum e fraction]Ordered By: Jackson Mondragon on 12-02-2024 Hematocrit (Bld) [Volume fraction] 29.7 % Low 36.0-48.0 [facility] Hemoglobin [Mass/volume] in BloodOrdered By: Jackson Mondragon 12-02-2024 Hemoglobin (Bld) [Mass/Vol] 10.3 g/dL Low 12.0-16.0 [facility] - Chemistry and C hemistry - challengeOrdered By: Jackson Mondragon on 12-02-2024 Calcium [Mass/Vol] 8.7 mg/dL 8.5-10.1 [facility] Chloride [Moles/Vol] 94 mmol/L Low 98-107 [facility] CO2 [Moles/Vol] 19.6 mmol/L Low 21.0-32.0 [facility] Creatinine [Mass/Vol] 0.92 mg/dL 0.55-1.02 [facility] GFR/1.73 sq M.predicted MDRD (S/P/Bld) [Vol rate/Area] mL/min/{1.73_m2} >=60 mL/min/1.73m 2 [facility] Glucose [Mass/Vol] 125 mg/dL High 74-106 [facility] Potassium [Moles/Vol] 4.2 mmol/L 3.5-5.1 [facility] Sodium [Moles/Vol] 127 mmol/L Low 136-145 [facility] Urea nitrogen [Mass/Vol] 22.0 mg/dL High 7.0-18.0 [facility] Urea nitrogen/Creatinine [Mass ratio] 23.9 mg/mg [facility] Albumin [Mass/Vol] 1.6 g/dL Low 3.4-5.0 [facility] ALP [Catalytic activity/Vol] 258 U/L High 46-116 [facility] ALT [Catalytic activity/Vol] 39 U/L 14-59 [facility] AST [Catalytic activity/Vol] 115 U/L High 15-37 [facility] Bilirubin [Mass/Vol] 1.3 mg/dL High 0.2-1.0 [facility] Protein [Mass/Vol] 6.0 g/dL Low 6.4-8.2 [facility] Leukocytes [#/volume] correc patty for nucleated erythrocytes in Blood by Automated counOrdered By: Jackson Mondragon on 12-02-2024 WBC corrected for nucl RBC Auto (Bld) [#/Vol] 9.6 10 3/uL 4.0-11.0 [facility] MCH Auto (RBC) [Entitic mass ]Ordered By: Jackson Mondragon on 12-02-2024 MCH (RBC) [Entitic mass] 33.2 pg 26.7-34.0 [facility] MCHC Auto (RBC) [Mass/Vol]Or dered By: Jackson Mondragon on 12-02-2024 MCHC (RBC) [Mass/Vol] 34.7 g/dL 29.9-35.2 [facility] MCV Auto (RBC) [Entitic vol] Ordered By: Jackson Mondragon on 12-02-2024 MCV (RBC) [Entitic vol] 95.8 fL 81.0-99.0 [facility] No Panel InformationOrdered By: Jackson Mondragon on 12-02-2024 23.9 [facility] 22.0 mg/dL High 7.0-18.0 [facility] 8.7 mg/dL 8.5-10.1 [facility] 94 mmol/L Low 98-107 [facility] 19.6 mmol/L Low 21.0-32.0 [facility] 0.92 mg/dL 0.55-1.02 [facility] >60 >=60 mL/min/1.7 3m 2 [facility] 125 mg/dL High 74-106 [facility] 4.2 mmol/L 3.5-5.1 [facility] 127 mmol/L Low 136-145 [facility] Phosphorus Level 4.1 mg/dL 2.6-4.7 [facility] 4.1 mg/dL 2.6-4.7 [facility] 1.6 g/dL Low 3.4-5.0 [facility] 258 U/L High 46-116 [facility] 39 U/L 14-59 [facility] 115 U/L High 15-37 [facility] 1.3 mg/dL High 0.2-1.0 [facility] 6.0 g/dL Low 6.4-8.2 [facility] Platelet mean volume Auto (B ld) [Entitic vol]Ordered By: Jackson Mondragon on 12-02-2024 Platelet mean volume (Bld) [Entitic vol] 10.3 fL 9.5-13.5 [facility] Platelets Auto (Bld) [#/Vol] Ordered By: Jackson Mondragon on 12-02-2024 Platelets (Bld) [#/Vol] 277 10 3/uL 150-450 [facility] RBC Auto (Bld) [#/Vol]Ordere d By: Jackson Mondragon on 12-02-2024 RBC (Bld) [#/Vol] 3.10 10 6/uL Low 4.20-5.40 [facility] Serum or plasma albumin/glob ulin mass ratioOrdered By: Jackson Mondragon on 12-02-2024 Albumin/Globulin [Mass ratio] 0.4 {ratio} [facility] Serum or plasma anion gap de terminationOrdered By: Jackson Mondragon on 12-02-2024 Anion gap [Moles/Vol] 17.6 mmol/L [facility] Erythrocyte distribution wid th Auto (RBC) [Ratio]Ordered By: Jackson Mondragon on 12-01-2024 Erythrocyte distribution width (RBC) [Ratio] 14.2 % 11.0-15.0 [facility] Globulin Calc (S) [Mass/Vol] Ordered By: Jackson Mondragon on 12-01-2024 Globulin (S) [Mass/Vol] 4.0 g/dL [facility] Glomerular filtration rate ( GFR) estimation in non- AmericanOrdered By: Jackson Mondragon on 12-01-2024 GFR/1.73 sq M.predicted among non-blacks MDRD (S/P/Bld) [Vol rate/Area] mL/min/{1.73_m2} >=60 mL/min/1.73m 2 [facility] Hematocrit Auto (Bld) [Volum e fraction]Ordered By: Jackson Mondragon on 12-01-2024 Hematocrit (Bld) [Volume fraction] 29.1 % Low 36.0-48.0 [facility] Hemoglobin [Mass/volume] in BloodOrdered By: Jackson Mondragon on 12-01-2024 Hemoglobin (Bld) [Mass/Vol] 10.3 g/dL Low 12.0-16.0 [facility] Laboratory - Chemistry and C hemistry - challengeOrdered By: Jackson Mondragon on 12-01-2024 Calcium [Mass/Vol] 8.3 mg/dL Low 8.5-10.1 [facility] Chloride [Moles/Vol] 90 mmol/L Low 98-107 [facility] CO2 [Moles/Vol] 23.3 mmol/L 21.0-32.0 [facility] Creatinine [Mass/Vol] 0.89 mg/dL 0.55-1.02 [facility] GFR/1.73 sq M.predicted MDRD (S/P/Bld) [Vol rate/Area] mL/min/{1.73_m2} >=60 mL/min/1.73m 2 [facility] Glucose [Mass/Vol] 110 mg/dL High 74-106 [facility] Potassium [Moles/Vol] 3.3 mmol/L Low 3.5-5.1 [facility] Sodium [Moles/Vol] 124 mmol/L Critically low 136-145 [facility] Comment on above: RESULTS CALLED TO NANNETTE HUANG RN at 2214 Urea nitrogen [Mass/Vol] 16.0 mg/dL 7.0-18.0 [facility] Urea nitrogen/Creatinine [Mass ratio] 18.0 mg/mg [facility] Magnesium [Mass/Vol] 1.8 mg/dL 1.8-2.4 [facility] Albumin [Mass/Vol] 1.8 g/dL Low 3.4-5.0 [facility] ALP [Catalytic activity/Vol] 250 U/L High 46-116 [facility] ALT [Catalytic activity/Vol] 32 U/L 14-59 [facility] AST [Catalytic activity/Vol] 80 U/L High 15-37 [facility] Bilirubin [Mass/Vol] 2.0 mg/dL High 0.2-1.0 [facility] CK [Catalytic activity/Vol] 316 U/L High 26-192 [facility] Osmolality [Osmolality] 250 mosm/kg Abnormal 275-295 [facility] Comment on above: Performed at: - [address] [id number] Director: Ab Giordano MD, Phone: [phone] Protein [Mass/Vol] 5.8 g/dL Low 6.4-8.2 [facility] - Chemistry and C hemistry - challengeOrdered By: Maureen Gilmore on 12-01-2024 TSH Qn 3.464 m[IU]/L 0.358-3.740 [facility] Leukocytes [#/volume] correc patty for nucleated erythrocytes in Blood by Automated counOrdered By: Jackson Mondragon on 12-01-2024 WBC corrected for nucl RBC Auto (Bld) [#/Vol] 10.6 10 3/uL 4.0-11.0 [facility] MCH Auto (RBC) [Entitic mass ]Ordered By: Jackson Mondragon on 12-01-2024 MCH (RBC) [Entitic mass] 33.3 pg 26.7-34.0 [facility] MCHC Auto (RBC) [Mass/Vol]Or dered By: Jackson Mondragon on 12-01-2024 MCHC (RBC) [Mass/Vol] 35.4 g/dL High 29.9-35.2 [facility] MCV Auto (RBC) [Entitic vol] Ordered By: Jackson Mondragon on 12-01-2024 MCV (RBC) [Entitic vol] 94.2 fL 81.0-99.0 [facility] No Panel InformationOrdered By: Jackson Mondragon on 12-01-2024 18.0 [facility] 16.0 mg/dL 7.0-18.0 [facility] 8.3 mg/dL Low 8.5-10.1 [facility] 90 mmol/L Low 98-107 [facility] 23.3 mmol/L 21.0-32.0 [facility] 0.89 mg/dL 0.55-1.02 [facility] >60 >=60 mL/min/1.7 3m 2 [facility] 110 mg/dL High 74-106 [facility] 3.3 mmol/L Low 3.5-5.1 [facility] 124 mmol/L Critically low 136-145 [facility] 1.8 mg/dL 1.8-2.4 [facility] 25-Hydroxy Vitamin D Total 134.0 ng/mL [facility] Comment on above: <20 ng/mL Vit D defi cient20-<30 ng/mL Vit D [id number] ng/mL Vit D sufficient>100 ng/mL Potential Toxicity Cortisol AM Sample 79.4 ug/dL Abnormal 6.2-19.4 [facility] Comment on above: Results confirmed on dilution.Performed at: [facility] [address] [id number] Director: Marcelo Parikh PhD, Phone: [phone] Troponin I High Sensitivity 12.0 pg/mL 4.0-51.3 [facility] Comment on above: CUT-OFF POINTS HAVE BEEN [...] IN CONJUNCTIONWITH OTHER DIAGNOSTIC AND CLINICAL INFORMATION. 250 mOsmol/kg Abnormal 275-295 [facility] 79.4 ug/dL Abnormal 6.2-19.4 [facility] 134.0 ng/mL [facility] 12.0 pg/mL 4.0-51.3 [facility] 316 U/L High 26-192 [facility] 1.8 g/dL Low 3.4-5.0 [facility] 250 U/L High 46-116 [facility] 32 U/L 14-59 [facility] 80 U/L High 15-37 [facility] 2.0 mg/dL High 0.2-1.0 [facility] 5.8 g/dL Low 6.4-8.2 [facility] No Panel InformationOrdered By: Maureen Gilmore on 12-01-2024 3.464 u[iU]/mL 0.358-3.740 [facility] Platelet mean volume Auto (B ld) [Entitic vol]Ordered By: Jackson Mondragon on 12-01-2024 Platelet mean volume (Bld) [Entitic vol] 10.5 fL 9.5-13.5 [facility] Platelets Auto (Bld) [#/Vol] Ordered By: Jackson Mondragon on 12-01-2024 Platelets (Bld) [#/Vol] 244 10 3/uL 150-450 [facility] RBC Auto (Bld) [#/Vol]Ordere d By: Jackson Mondragon on 12-01-2024 RBC (Bld) [#/Vol] 3.09 10 6/uL Low 4.20-5.40 [facility] Serum or plasma albumin/glob ulin mass ratioOrdered By: Jackson Mondragon on 12-01-2024 Albumin/Globulin [Mass ratio] 0.5 {ratio} [facility] Serum or plasma anion gap de terminationOrdered By: Jackson Mondragon on 12-01-2024 Anion gap [Moles/Vol] 14.0 mmol/L [facility] Basophils Auto (Bld) [#/Vol] Ordered By: Isha Holley on 11-30-2024 Basophils (Bld) [#/Vol] 0.0 10 3/uL 0.0-0.1 [facility] Basophils/100 WBC Auto (Bld) Ordered By: Isha Holley on 11-30-2024 Basophils/100 WBC (Bld) 0.1 % Low 0.2-2.0 [facility] Eosinophils/100 WBC Auto (Bl d)Ordered By: Isha Holley on 11-30-2024 Eosinophils/100 WBC (Bld) 0.1 % Low 0.9-7.0 [facility] Erythrocyte distribution wid th Auto (RBC) [Ratio]Ordered By: Isha Holley on 11-30-2024 Erythrocyte distribution width (RBC) [Ratio] 14.3 % 11.0-15.0 [facility] Globulin Calc (S) [Mass/Vol] Ordered By: Isha Holley on 11-30-2024 Globulin (S) [Mass/Vol] 4.4 g/dL [facility] Glomerular filtration rate ( GFR) estimation in non- AmericanOrdered By: Isha Holley on 11-30-2024 GFR/1.73 sq M.predicted among non-blacks MDRD (S/P/Bld) [Vol rate/Area] mL/min/{1.73_m2} >=60 mL/min/1.73m 2 [facility] Hematocrit Auto (Bld) [Volum e fraction]Ordered By: Isha Holley on 11-30-2024 Hematocrit (Bld) [Volume fraction] 31.3 % Low 36.0-48.0 [facility] Hemoglobin [Mass/volume] in BloodOrdered By: Isha Holley on 11-30-2024 Hemoglobin (Bld) [Mass/Vol] 11.3 g/dL Low 12.0-16.0 [facility] INR in Platelet poor plasma by Coagulation assayOrdered By: Isha Holley on 11-30-2024 INR Coag (PPP) [Relative time] 0.97 {INR} [facility] Comment on above: DESIRED INR:2.0-3.0 CONDITIONS NOT LISTED BELOW2.5-3.5 FOR PROSTHETIC HEART VALVE REPLACEMENT2.5-3.5 [facility] Laboratory - Chemistry and C hemistry - challengeOrdered By: Maureen Gilmore on 11-30-2024 Bilirubin Ql (U) SMALL Abnormal NEGATIVE [facility] Glucose (U) [Mass/Vol] Negative NEGATIVE [facility] Ketones Ql (U) TRACE mg/dL Abnormal NEGATIVE [facility] pH (U) 5.5 [pH] 5.0-9.0 [facility] Specific gravity (U) [Rel density] 1.015 1.005-1.025 [facility] Urobilinogen Qn (U) 2.0 {Orlando'U}/dL Abnormal 0.2-1.0 [facility] Laboratory - Chemistry and C hemistry - challengeOrdered By: Isha Holley on 11-30-2024 HCO3 (Bld) [Moles/Vol] 22.1 mmol/L 22.0-26.0 [facility] Albumin [Mass/Vol] 1.9 g/dL Low 3.4-5.0 [facility] ALP [Catalytic activity/Vol] 285 U/L High 46-116 [facility] ALT [Catalytic activity/Vol] 35 U/L 14-59 [facility] AST [Catalytic activity/Vol] 90 U/L High 15-37 [facility] Bilirubin [Mass/Vol] 2.7 mg/dL High 0.2-1.0 [facility] Calcium [Mass/Vol] 8.7 mg/dL 8.5-10.1 [facility] Chloride [Moles/Vol] 83 mmol/L Critically low 98-107 [facility] Comment on above: RESULTS CALLED TO rosalinda moran rn CK [Catalytic activity/Vol] 565 U/L Critically high 26-192 [facility] Comment on above: RESULTS CALLED TO rosalinda moran rn CO2 [Moles/Vol] 22.8 mmol/L 21.0-32.0 [facility] Creatinine [Mass/Vol] 0.85 mg/dL 0.55-1.02 [facility] GFR/1.73 sq M.predicted MDRD (S/P/Bld) [Vol rate/Area] mL/min/{1.73_m2} >=60 mL/min/1.73m 2 [facility] Glucose [Mass/Vol] 142 mg/dL High 74-106 [facility] Natriuretic peptide B (Bld) [Mass/Vol] 1858.0 pg/mL Critically high <=900.0 [facility] Comment on above: RESULTS CALLED TO rosalinda moran rn Potassium [Moles/Vol] 3.7 mmol/L 3.5-5.1 [facility] Protein [Mass/Vol] 6.3 g/dL Low 6.4-8.2 [facility] Sodium [Moles/Vol] 119 mmol/L Critically low 136-145 [facility] Comment on above: RESULTS CALLED TO rosalinda moran rn Urea nitrogen [Mass/Vol] 10.0 mg/dL 7.0-18.0 [facility] Urea nitrogen/Creatinine [Mass ratio] 11.8 mg/mg [facility] Laboratory - Hematology and Cell countsOrdered By: Isha Holley on 11-30-2024 Immature granulocytes/100 WBC (Bld) 0.6 % High 0.0-0.5 [facility] Laboratory - Specimen inform ationOrdered By: Maureen Gilmore on 11-30-2024 Appearance (U) CLEAR CLEAR [facility] Color (U) DK. ORANGE YELLOW [facility] Laboratory - UrinalysisOrder ed By: Maureen Gilmore on 11-30-2024 Leukocyte esterase Test strip Ql (U) Negative NEGATIVE [facility] Nitrite Ql (U) Negative NEGATIVE [facility] Protein Ql (U) Negative NEG/TRACE [facility] Leukocytes [#/volume] correc patty for nucleated erythrocytes in Blood by Automated counOrdered By: Isha Holley on 11-30-2024 WBC corrected for nucl RBC Auto (Bld) [#/Vol] 10.8 10 3/uL 4.0-11.0 [facility] Lymphocytes Auto (Bld) [#/Vo l]Ordered By: Isha Holley on 11-30-2024 Lymphocytes (Bld) [#/Vol] 1.1 10 3/uL Low 1.2-3.8 [facility] Lymphocytes/100 WBC Auto (Bl d)Ordered By: Isha Holley on 11-30-2024 Lymphocytes/100 WBC (Bld) 10.3 % Low 20.5-60.0 [facility] MCH Auto (RBC) [Entitic mass ]Ordered By: Isha Holley on 11-30-2024 MCH (RBC) [Entitic mass] 33.9 pg 26.7-34.0 [facility] MCHC Auto (RBC) [Mass/Vol]Or dered By: Isha Holley on 11-30-2024 MCHC (RBC) [Mass/Vol] 36.1 g/dL High 29.9-35.2 [facility] MCV Auto (RBC) [Entitic vol] Ordered By: Isha Holley on 11-30-2024 MCV (RBC) [Entitic vol] 94.0 fL 81.0-99.0 [facility] Monocytes Auto (Bld) [#/Vol] Ordered By: Isha Holley on 11-30-2024 Monocytes (Bld) [#/Vol] 1.0 10 3/uL High 0.3-0.8 [facility] Monocytes/100 WBC Auto (Bld) Ordered By: Isha Holley on 11-30-2024 Monocytes/100 WBC (Bld) 8.9 % 1.7-12.0 [facility] Neutrophils Auto (Bld) [#/Vo l]Ordered By: Isha Holley on 11-30-2024 Neutrophils (Bld) [#/Vol] 8.6 10 3/uL High 1.4-6.5 [facility] Neutrophils/100 WBC Auto (Bl d)Ordered By: Isha Holley on 11-30-2024 Neutrophils/100 WBC (Bld) 80.0 % High 43.0-75.0 [facility] No Panel InformationOrdered By: Maureen Gilmore on 11-30-2024 Urine Microscopic Review NO [facility] Urine Occult Blood Negative NEGATIVE [facility] NO [facility] SMALL Abnormal NEGATIVE [facility] Negative NEG/TRACE [facility] CLEAR CLEAR [facility] DK. ORANGE YELLOW [facility] TRACE mg/dL Abnormal NEGATIVE [facility] 5.5 5.0-9.0 [facility] 1.015 1.005-1.025 [facility] 2.0 EU/dL Abnormal 0.2-1.0 [facility] No Panel InformationOrdered By: Jackson Mondragon on 11-30-2024 Urine Osmolality 330 mOsmol/kg . [facility] Comment on above: 24 hr : 300 - 900 Ra ndom: 50 - 1400 After 12hr fluid restriction: >850Performed at: - [facility] [id number] Director: Ab Giordano MD, Phone: [phone] 330 mOsmol/kg . [facility] No Panel InformationOrdered By: Isha Holley on 11-30-2024 Hubert Test Positive POSITIVE [facility] Arterial Blood Base Excess -0.9 mmol/L <2.0-2.0 [facility] Arterial Blood Oxygen Saturation 97.9 % [facility] Arterial Blood Partial Pressure CO2 27.4 mm[Hg] Low 35.0-45.0 [facility] Arterial Blood Partial Pressure O2 89.4 mm[Hg] 80.0-100.0 [facility] Arterial Blood pH 7.514 Critically high 7.350-7.450 [facility] Comment on above: RESULTS CALLED TO DR Ana MONZON Blood Gas Liter Flow 3.5 [facility] Blood Gas Sample Site L RAD [facility] Oxygen Delivery Device N/C [facility] Positive POSITIVE [facility] -0.9 mmol/L <2.0-2.0 [facility] 22.1 mmol/L 22.0-26.0 [facility] 3.5 [facility] N/C [facility] 97.9 % [facility] 27.4 mm[Hg] Low 35.0-45.0 [facility] 7.514 Critically high 7.350-7.450 [facility] 89.4 mm[Hg] 80.0-100.0 [facility] L RAD [facility] Eosinophils # (Auto) 0.0 10 3/uL 0.0-0.7 Fir [facility] Immature Granulocyte # (Auto) 0.06 10 3/uL High 0.00-0.03 [facility] Troponin I High Sensitivity 12.4 pg/mL 4.0-51.3 [facility] Comment on above: CUT-OFF POINTS HAVE BEEN [...] IN CONJUNCTIONWITH OTHER DIAGNOSTIC AND CLINICAL INFORMATION. 1858.0 pg/mL Critically high <=900.0 [facility] 12.4 pg/mL 4.0-51.3 [facility] 565 U/L Critically high 26-192 [facility] 1.9 g/dL Low 3.4-5.0 [facility] 0.0 10 3/uL 0.0-0.7 [facility] 285 U/L High 46-116 [facility] 35 U/L 14-59 [facility] 90 U/L High 15-37 [facility] 11.8 [facility] 0.06 10 3/uL High 0.00-0.03 [facility] 10.0 mg/dL 7.0-18.0 [facility] 0.6 % High 0.0-0.5 [facility] 8.7 mg/dL 8.5-10.1 [facility] 83 mmol/L Critically low 98-107 [facility] 22.8 mmol/L 21.0-32.0 [facility] 0.85 mg/dL 0.55-1.02 [facility] >60 >=60 mL/min/1.7 3m 2 [facility] 142 mg/dL High 74-106 [facility] 3.7 mmol/L 3.5-5.1 [facility] 119 mmol/L Critically low 136-145 [facility] 2.7 mg/dL High 0.2-1.0 [facility] 6.3 g/dL Low 6.4-8.2 [facility] Platelet mean volume Auto (B ld) [Entitic vol]Ordered By: Isha Holley on 11-30-2024 Platelet mean volume (Bld) [Entitic vol] 10.4 fL 9.5-13.5 [facility] Platelets Auto (Bld) [#/Vol] Ordered By: Isha Holley on 11-30-2024 Platelets (Bld) [#/Vol] 249 10 3/uL 150-450 [facility] Prothrombin time (PT)Ordered By: Isha Holley on 11-30-2024 PT Coag (PPP) [Time] 10.3 s 9.0-11.6 [facility] RBC Auto (Bld) [#/Vol]Ordere d By: Isha Holley on 11-30-2024 RBC (Bld) [#/Vol] 3.33 10 6/uL Low 4.20-5.40 [facility] Serum or plasma albumin/glob ulin mass ratioOrdered By: Isha Holley on 11-30-2024 Albumin/Globulin [Mass ratio] 0.4 {ratio} [facility] Serum or plasma anion gap de terminationOrdered By: Isha Holley on 11-30-2024 Anion gap [Moles/Vol] 16.9 mmol/L [facility] ANION GAPon 06-11-2024 Anion gap [Moles/Vol] 15.0 mmol/L Normal 8.0-16.0 [facility] Comment on above: Result Comment: ANIO N GAP = Sodium -(Chloride + CO2) Performed By: #### H H, BMP, ANION, EGFR1 #### [address] [address] Anion Gapon 06-11-2024 Anion gap [Moles/Vol] 15.0 mmol/L 8.0 - 16.0 meq/L [facility] Comment on above: ANION GAP = Sodium - (Chloride + CO2) Performed at [facility] [address] [place] [address] BASIC METABOL PANELon 2024 Calcium [Mass/Vol] 8.7 mg/dL Normal 8.5-10.5 [facility] Comment on above: Performed By: #### E GFR1, BMP, HH, ANION #### [place] [address] Chloride [Moles/Vol] 100 mmol/L Normal 98-111 [facility] Comment on above: Performed By: #### E GFR1, BMP, HH, ANION #### [facility] [address] [address] CO2 [Moles/Vol] 24 mmol/L Normal 23-33 [facility] Comment on above: Performed By: #### E GFR1, BMP, HH, ANION #### [address] [address] Creatinine [Mass/Vol] 0.3 mg/dL Low 0.4-1.2 [facility] Comment on above: Performed By: #### E GFR1, BMP, HH, ANION #### [facility] [address] [place] [address] Glucose [Mass/Vol] 109 mg/dL High 70-108 [facility] Comment on above: Performed By: #### E GFR1, BMP, HH, ANION #### [facility] [address] [place] [address] Potassium [Moles/Vol] 3.2 mmol/L Low 3.5-5.2 [facility] Comment on above: Performed By: #### E GFR1, BMP, HH, ANION #### [facility] [employer] [facility] [address] [place] [address] Sodium [Moles/Vol] 139 mmol/L Normal 135-145 [facility] Comment on above: Performed By: #### E GFR1, BMP, HH, ANION #### [facility] [address] [place] [address] Urea nitrogen [Mass/Vol] 4 mg/dL Low 7-22 [facility] Comment on above: Performed By: #### E GFR1, BMP, HH, ANION #### [facility] [employer] [facility] [address] [place] [address] Basic metabolic 2000 panelon 06-11-2024 Calcium [Mass/Vol] 8.7 mg/dL 8.5 - 10.5 mg/dL [facility] [employer] Comment on above: Performed at [facility] [address] [place] [address] Chloride [Moles/Vol] 100 mmol/L 98 - 111 meq/L [facility] CO2 [Moles/Vol] 24 mmol/L 23 - 33 meq/L [facility] [employer] Creatinine [Mass/Vol] 0.3 mg/dL Low 0.4 - 1.2 mg/dL [facility] Glucose [Mass/Vol] 109 mg/dL High 70 - 108 mg/dL Ronal [facility] Interpretation and review of laboratory results Abnormal [facility] Potassium [Moles/Vol] 3.2 mmol/L Low 3.5 - 5.2 meq/L [facility] [employer] Sodium [Moles/Vol] 139 mmol/L 135 - 145 meq/L B on [facility] Urea nitrogen [Mass/Vol] 4 mg/dL Low 7 - 22 mg/dL [facility] GFR, ESTIMATEDon 06-11-2024 GFR/1.73 sq M.predicted MDRD (S/P/Bld) [Vol rate/Area] mL/min/{1.73_m2} Normal >60 [facility] Comment on above: Pediatric calculator link https://www.kidney.org/professionals/kdoqi/gfr_calculatorped [...] that affects renal tubular secretion. [place] [address] Result Comment: Cira miltonc calculator link https://www.kidney.org/professionals/kdoqi/gfr_calculatorped [...] #### H H, BMP, ANION, EGFR1 #### [facility] [place] [address] HGB,HCTon 06-11-2024 Hematocrit (Bld) [Volume fraction] 28.7 % Low 37.0-47.0 [facility] Comment on above: [place] [address] Performed By: #### E GFR1, BMP, HH, ANION #### [place] [address] Hemoglobin (Bld) [Mass/Vol] 9.1 g/dL Low 12.0-16.0 [facility] Comment on above: Performed By: #### E GFR1, BMP, HH, ANION #### [employer] [employer] [address] [place] [address] Hemoglobin and Hematocrit pa kathryn (Bld)on 06-11-2024 Interpretation and review of laboratory results Abnormal [facility] No Panel Informationon 06-11 [employer] [facility] ANION GAPon 06-10-2024 Anion gap [Moles/Vol] 15.0 mmol/L Normal 8.0-16.0 [facility] Comment on above: Result Comment: ANIO N GAP = Sodium -(Chloride + CO2) Performed By: #### A NION, EGFR1, HH, BMP #### [facility] [address] [place] [address] Anion Gapon 06-10-2024 Anion gap [Moles/Vol] 15.0 mmol/L 8.0 - 16.0 meq/L [facility] Comment on above: ANION GAP = Sodium - (Chloride + CO2) Performed at [facility] [address] [place] [address] BASIC METABOL PANELon 2024 Calcium [Mass/Vol] 8.7 mg/dL Normal 8.5-10.5 [facility] Comment on above: Performed By: #### A RUTH MCMILLAN, AMANDA, BMP #### [facility] [address] [place] [address] Chloride [Moles/Vol] 107 mmol/L Normal 98-111 [facility] Comment on above: Performed By: #### RUTH BATES HH, BMP #### [facility] [address] [place] [address] CO2 [Moles/Vol] 24 mmol/L Normal 23-33 [facility] Comment on above: Performed By: #### RUTH BATES, AMANDA, BMP #### [facility] [employer] [facility] [address] [place] [address] Creatinine [Mass/Vol] 0.4 mg/dL Normal 0.4-1.2 [facility] Comment on above: Performed By: #### RUTH BATES, AMANDA, BMP #### [facility] [address] [place] [address] Glucose [Mass/Vol] 110 mg/dL High 70-108 [facility] Comment on above: Performed By: #### RUTH BATES, AMANDA, BMP #### [facility] [address] [place] [address] Potassium [Moles/Vol] 3.3 mmol/L Low 3.5-5.2 [facility] Comment on above: Performed By: #### RUTH BATES, AMANDA, BMP #### [facility] [employer] [facility] [address] [place] [address] Sodium [Moles/Vol] 146 mmol/L High 135-145 [facility] Comment on above: Performed By: #### A RUTH MCMILLAN, HH, BMP #### [facility] [employer] [facility] [address] [place] [address] Urea nitrogen [Mass/Vol] 4 mg/dL Low 7-22 [facility] Comment on above: Performed By: #### A RUTH MCMILLAN, HH, BMP #### [facility] [address] [place] [address] Basic metabolic 2000 panelon 06-10-2024 Calcium [Mass/Vol] 8.7 mg/dL 8.5 - 10.5 mg/dL [facility] Comment on above: Performed at [facility] [address] [place] [address] Chloride [Moles/Vol] 107 mmol/L 98 - 111 meq/L [facility] CO2 [Moles/Vol] 24 mmol/L 23 - 33 meq/L [facility] Creatinine [Mass/Vol] 0.4 mg/dL 0.4 - 1.2 mg/dL [facility] Glucose [Mass/Vol] 110 mg/dL High 70 - 108 mg/dL R[facility] Interpretation and review of laboratory results Abnormal [facility] Potassium [Moles/Vol] 3.3 mmol/L Low 3.5 - 5.2 meq/L [facility] Sodium [Moles/Vol] 146 mmol/L High 135 - 145 meq/L B on [facility] Urea nitrogen [Mass/Vol] 4 mg/dL Low 7 - 22 mg/dL [facility] EKG 12 Leadon 06-10-2024 Atrial Rate 100 BPM [facility] P Saffell 16 degrees [facility] P-R Interval 158 ms [facility] Q-T Interval 346 ms [facility] QRS Duration 86 ms [facility] QTc Calculation (Bazett) 446 ms [facility] R Saffell 27 degrees [facility] T S[place] 65 degrees [facility] Ventricular Rate 100 BPM [facility] Normal sinus rhythm Nonspecific ST and T wave abnormality Abnormal ECG Confirmed by JASPER CARDOZO ([id number]) on 06/10/2024 11:52:42 AM [facility] STR MUSE Jasper Cardozo MD - 06/10/2024 Normal sinus rhythm Nonspecific ST and T wave abnormality Abnormal ECG Confirmed by JASPER CARDOZO ([id number]) on 06/10/2024 11:52:42 AM [facility] GFR, ESTIMATEDon 06-10-2024 GFR/1.73 sq M.predicted MDRD (S/P/Bld) [Vol rate/Area] mL/min/{1.73_m2} Normal >60 [facility] Comment on above: Pediatric calculator link https://www.kidney.org/professionals/kdoqi/gfr_calculatorped [...] that affects renal tubular secretion. Performed at [facility] [address] [place] [address] Result Comment: Pedi atric calculator link https://www.kidney.org/professionals/kdoqi/gfr_calculatorped [...] renal tubular secretion. Performed By: #### A HIPOLITO EGFR1, HH, BMP #### [facility] [address] [place] [address] HGB,HCTon 06-10-2024 Hematocrit (Bld) [Volume fraction] 28.0 % Low 37.0-47.0 [facility] Comment on above: Performed at [facility] [address] [place] [address] Performed By: #### A RUTH MCMILLAN, AMANDA, BMP #### [facility] [address] [place] [address] Hemoglobin (Bld) [Mass/Vol] 9.0 g/dL Low 12.0-16.0 [facility] Comment on above: Performed By: #### A RUTH MCMILLAN, AMANDA, BMP #### [facility] [address] [place] [address] Hemoglobin and Hematocrit pa kathryn (Bld)on 06-10-2024 Interpretation and review of laboratory results Abnormal [facility] No Panel Informationon 06-10 [facility] XR WRIST LEFT (MIN 3 VIEWS)o n [...] Levy Hayes MD 06/10/24 Final result Normal [facility] XR Wrist - left 3 Viewson [...] exclude an old healed fracture. [facility] Levy Mcgee MD - 06/10/2024 XR WRIST LEFT (MIN [...] Electronically signed by Dr. Levy Hayes [facility] Radiology Study observation (narrative) [facility] ANION GAPon 06-09-2024 Anion gap [Moles/Vol] 16.0 mmol/L Normal 8.0-16.0 [facility] Comment on above: Result Comment: ANIO N GAP = Sodium -(Chloride + CO2) Performed By: #### H H, BMP, ANION, EGFR1 #### [facility] [address] [place] [id number] Anion Gapon 06-09-2024 Anion gap [Moles/Vol] 16.0 mmol/L 8.0 - 16.0 meq/L [facility] Comment on above: ANION GAP = Sodium - (Chloride + CO2) Performed at [facility] [address] [place] [address] BASIC METABOL PANELon 2024 Calcium [Mass/Vol] 8.4 mg/dL Low 8.5-10.5 [facility] Comment on above: Performed By: #### H H, BMP, ANION, EGFR1 #### [facility] [address] [place] [address] Chloride [Moles/Vol] 103 mmol/L Normal 98-111 [facility] Comment on above: Performed By: #### H H, BMP, ANION, EGFR1 #### [facility] [address] [place] [address] CO2 [Moles/Vol] 20 mmol/L Low 23-33 [facility] Comment on above: Performed By: #### H H, BMP, ANION, EGFR1 #### [facility] [address] [place] [address] Creatinine [Mass/Vol] 0.6 mg/dL Normal 0.4-1.2 [facility] Comment on above: Performed By: #### H H, BMP, ANION, EGFR1 #### [facility] [address] [place] [address] Glucose [Mass/Vol] 107 mg/dL Normal 70-108 [facility] Comment on above: Performed By: #### H H, BMP, ANION, EGFR1 #### [facility] [address] [place] [address] Potassium [Moles/Vol] 4.3 mmol/L Normal 3.5-5.2 [facility] Comment on above: Performed By: #### H H, BMP, ANION, EGFR1 #### [facility] [address] [place] [address] Sodium [Moles/Vol] 139 mmol/L Normal 135-145 [facility] Comment on above: Performed By: #### H H, BMP, ANION, EGFR1 #### [facility] [address] [place] [address] Urea nitrogen [Mass/Vol] mg/dL Low 7-22 [facility] Comment on above: Performed By: #### H H, BMP, ANION, EGFR1 #### [facility] [address] [place] [address] Basic metabolic 2000 panelon 06-09-2024 Calcium [Mass/Vol] 8.4 mg/dL Low 8.5 - 10.5 mg/dL [facility] Comment on above: Performed at [facility] [address] [place] [address] Chloride [Moles/Vol] 103 mmol/L 98 - 111 meq/L [facility] CO2 [Moles/Vol] 20 mmol/L Low 23 - 33 meq/L [facility] Creatinine [Mass/Vol] 0.6 mg/dL 0.4 - 1.2 mg/dL [facility] Glucose [Mass/Vol] 107 mg/dL 70 - 108 mg/dL [facility] Interpretation and review of laboratory results Abnormal [facility] Potassium [Moles/Vol] 4.3 mmol/L 3.5 - 5.2 meq/L [facility] Sodium [Moles/Vol] 139 mmol/L 135 - 145 meq/L [facility] Urea nitrogen [Mass/Vol] mg/dL Low 7 - 22 mg/dL [facility] EKG 12 LeadOrdered By: Maritza Cardozo on 06-09-2024 Atrial Rate 117 BPM [facility] Work Phone: P Saffell 23 degrees [employer] Work Phone: P-R Interval 154 ms [facility] Work Phone: Q-T Interval 328 ms [employer] Work Phone: QRS Duration 90 ms [facility] Work Phone: QTc Calculation (Bazett) 457 ms [facility] Work Phone: R Saffell 26 degrees [employer] Work Phone: T Saffell 120 degrees [facility] Work Phone: Ventricular Rate 117 BPM [facility] [employer] Work Phone: [facility] Work Phone: EKG 12 Leadon 06-09-2024 Sinus tachycardia LVH with repolarization abnormality ( Ayo product ) Cannot rule out Inferior infarct , age undetermined Abnormal ECG No previous ECGs available Confirmed by JASPER CARDOZO ([id number]) on 06/09/2024 11:36:47 AM [facility] Jasper Olson MD - 06/09/2024 Sinus tachycardia LVH with repolarization abnormality ( [place] product ) Cannot rule out Inferior infarct , age undetermined Abnormal ECG No previous ECGs available Confirmed by JASPER CARDOZO ([id number]) on 06/09/2024 11:36:47 AM [facility] EKG 12-LEADon 06-09-2024 EKG 12-LEAD 100 100 158 86 346 446 16 27 65 Normal sinus rhythm Nonspecific ST and T wave abnormality Abnormal ECG Confirmed by JASPER CARDOZO ([id number]) on 06/10/2024 11:52:42 AM [email or web address] teTime?[email or web address] [id number]&Date=09-06-19 25&Time=23%3a47%3a11 %3a00&TestType=ECG&S ite=3&OutputType=PDF &Ext=PDF Normal [facility] EKG 12-LEAD 117 117 154 90 328 457 23 26 120 Sinus tachycardia LVH with repolarization abnormality ( Ayo product ) Cannot rule out Inferior infarct , age undetermined Abnormal ECG No previous ECGs available Confirmed by JASPER CARDOZO ([id number]) on 06/09/2024 11:36:47 AM [email or web address] teTime?[id number]&Date=09-06-19 25&Time=11%3a22%3a29 %3a00&TestType=ECG&S ite=3&OutputType=PDF &Ext=PDF Normal [facility] GFR, ESTIMATEDon 06-09-2024 GFR/1.73 sq M.predicted MDRD (S/P/Bld) [Vol rate/Area] mL/min/{1.73_m2} Normal >60 [facility] Comment on above: Pediatric calculator link https://www.kidney.org/professionals/kdoqi/gfr_calculatorped [...] that affects renal tubular secretion. Performed at [facility] [address] [place] [id number] Result Comment: Cira atric calculator link https://www.kidney.org/professionals/kdoqi/gfr_calculatorped [...] #### H H, BMP, ANION, EGFR1 #### [facility] [address] [place] [address] HGB,HCTon 06-09-2024 Hematocrit (Bld) [Volume fraction] 31.1 % Low 37.0-47.0 [facility] Comment on above: Performed By: #### H H, BMP, ANION, EGFR1 #### [facility] [employer] [facility] [address] [place] [address] Hemoglobin (Bld) [Mass/Vol] 9.8 g/dL Low 12.0-16.0 [facility] Comment on above: Performed By: #### H H, BMP, ANION, EGFR1 #### [facility] [employer] [facility] [address] [place] [address] Hemoglobin and Hematocrit pa kathryn (Bld)on 06-09-2024 Hematocrit (Bld) [Volume fraction] 31.1 % Low 37.0 - 47.0 % [facility] Comment on above: Performed at [facility] [address] [place] [address] Hemoglobin (Bld) [Mass/Vol] 9.8 g/dL Low [facility] Interpretation and review of laboratory results Abnormal [employer] No Panel Informationon 06-09 [facility] XR LUMBAR SPINE 1 VWon 06-09 XR [...] Levy Hayes MD 06/09/24 Final result Normal [facility] XR Lumbar spine Single viewo n 06-09-2024 Postop appearance of the lumbar spine. This report has been created using voice recognition software. It may contain minor errors which are inherent in voice recognition technology. Electronically signed by Dr. Levy Hayes [facility] MOBILE LATERAL LUMBAR SPINE: CLINICAL INFORMATION: surgery COMPARISON: No prior study. TECHNIQUE: A single lateral mobile view of the lumbar spine was obtained following surgery. FINDINGS: Posterior lumbar fusion has been performed with pedicle screws and rods bridging the L4-[address] [facility] Levy Hayes MD - 06/09/2024 [...] Electronically signed by Dr. Levy Hayes [facility] XR LUMBAR SPINE 1 VWon 06-08 [...] Levy Hayes MD 06/08/24 Final result Normal [facility] XR Lumbar spine Single viewo n 06-08-2024 Radiology Study observation (narrative) [facility] Intraoperative appearance of the lumbar spine. This report has been created using voice recognition software. It may contain minor errors which are inherent in voice recognition technology. Electronically signed by Dr. Levy Hayes [facility] MOBILE LATERAL LUMBAR SPINE: CLINICAL INFORMATION: surgery COMPARISON: No prior study. TECHNIQUE: A single lateral mobile view of the lumbar spine was obtained For localization purposes. FINDINGS: 2 spinal needles are present posteriorly, directed at the L3-4 and L4-5 disc spaces. [facility] RIS CONSOLIDATED Levy Hayes MD - 06/08/2024 MOBILE [...] technology. Electronically signed by Dr. Levy Hayes [facility] Rad[facility] Study observation (narrative) [facility] XR Lumbar spine Single viewO rdered By: Levy Hayes on 06-08-2024 [facility] Work Phone: Estimated glomerular filtrat ion rate (GFR) non- Americanon 05-06-2024 GFR/1.73 sq M.predicted among non-blacks MDRD (S/P/Bld) [Vol rate/Area] Estimated glomerular filtration rate (GFR) non- >=60 mL/min/1.73m 2 [facility] Laboratory - Chemistry and C hemistry - challengeon 05-06-2024 Calcium [Mass/Vol] 8.9 mg/dL 8.5-10.1 [facility] Chloride [Moles/Vol] 101 mmol/L 98-107 [facility] CO2 [Moles/Vol] 24.2 mmol/L 21.0-32.0 [facility] Creatinine [Mass/Vol] 0.62 mg/dL 0.55-1.02 [facility] GFR/1.73 sq M.predicted MDRD (S/P/Bld) [Vol rate/Area] mL/min/{1.73_m2} >=60 mL/min/1.73m 2 [facility] Glucose [Mass/Vol] 98 mg/dL 74-106 [facility] Potassium [Moles/Vol] 3.3 mmol/L Low 3.5-5.1 [facility] Sodium [Moles/Vol] 138 mmol/L 136-145 [facility] Urea nitrogen [Mass/Vol] mg/dL Low 7.0-18.0 [facility] Urea nitrogen/Creatinine [Mass ratio] 1.6 mg/mg [facility] Serum or plasma anion gap de terminationon 05-06-2024 Anion gap [Moles/Vol] Serum or plasma anion gap determination [facility] Appearance of UrineOrdered B y: Maureen Gilmore on 04-29-2024 Appearance (U) Urine appearance Abnormal Clear [facility] Bacteria [Presence] in Urine by AutomatedOrdered By: Maureen Gilmore on 04-29-2024 Bacteria Auto Ql (U) Bacteria [Presence] in Urine by Automated High None Seen [facility] Bilirubin Test strip Ql (U)O rdered By: Maureen Gilmore on 04-29-2024 Bilirubin Ql (U) Bilirubin.total [Presence] in Urine by Test strip Negative [facility] Color Auto (U)Ordered By: Thanh Gilmore on 04-29-2024 Color (U) Color of Urine by Auto Yellow [facility] Dipstick and Microscopicon 1 06-30-2023 Appearance (U) Cloudy Critically abnormal Clear [facility] Comment on above: Order Comment: Name Collection Type:: Voided Performed By: #### A DDONUAPLUS, CUU #### [facility] [address] [place] [id number] [place] Bacteria,Urine 4+ High None Seen [facility] Comment on above: Order Comment: Name Collection Type:: Voided Performed By: #### A DDONUAPLUS, CUU #### [facility] [address] [place] [id number] [place] Bilirubin,Urine Negative Normal Negative [facility] Comment on above: Order Comment: Name Collection Type:: Voided Performed By: #### A DDONUAPLUS, CUU #### [facility] [address] [place] [id number] [place] Color (U) Light-Yellow Normal Yellow [facility] Comment on above: Order Comment: Name Collection Type:: Voided Performed By: #### A DDONUAPLUS, CUU #### [facility] [address] [id number] [place] Glucose Ql (U) Normal Normal Normal [facility] Comment on above: Order Comment: Name Collection Type:: Voided Performed By: #### A DDONUAPLUS, CUU #### [place] [address] [place] Hyaline Casts,Urine 0 [LPF] Normal 0-8 [facility] Comment on above: Order Comment: Name Collection Type:: Voided Performed By: #### A DDONUAPLUS, CUU #### [address] Ketones Ql (U) Negative Normal Negative [facility] Comment on above: Order Comment: Name Collection Type:: Voided Performed By: #### A DDONUAPLUS, CUU #### [address] Leukocyte esterase Test strip Ql (U) 4+ High Negative [facility] Comment on above: Order Comment: Name Collection Type:: Voided Performed By: #### A DDONUAPLUS, CUU #### [place] [address] [place] Mucus,Urine Rare Normal [facility] Comment on above: Order Comment: Name Collection Type:: Voided Result Comment: PERF ORMED BY: [place] [address] PATHOLOGIST [employer] PROFESSIONAL RICHARD FAIR M.D. Performed By: #### A DDONUAPLUS, CUU #### [place] [address] [place] Nitrite,Urine Negative Normal Negative [facility] Comment on above: Order Comment: Name Collection Type:: Voided Performed By: #### A DDONUAPLUS, CUU #### [place] [id number] [place] Occult Blood,Urine Negative Normal Negative [facility] Comment on above: Order Comment: Name Collection Type:: Voided Result Comment: PERF ORMED BY: [place] [address] PATHOLOGIST [employer] PROFESSIONAL RICHARD FAIR M.D. Performed By: #### A DDONUAPLUS, CUU #### [address] pH (U) 5.5 [pH] Normal 5.0-9.0 [facility] Comment on above: Order Comment: Name Collection Type:: Voided Performed By: #### A DDONUAPLUS, CUU #### [address] Protein,Urine Negative Normal Negative [facility] Comment on above: Order Comment: Name Collection Type:: Voided Performed By: #### A DDONUAPLUS, CUU #### [address] RBC,Urine 3 [HPF] Normal 0-4 [facility] Comment on above: Order Comment: Name Collection Type:: Voided Performed By: #### A DDONUAPLUS, CUU #### [address] Specificy [place],Urine 1.011 Normal 1.001-1.030 [facility] Comment on above: Order Comment: Name Collection Type:: Voided Performed By: #### A DDONUAPLUS, CUU #### [address] Squamous Epithelial Cell,Urine 3 [HPF] High 0-2 [facility] Comment on above: Order Comment: Name Collection Type:: Voided Performed By: #### A DDONUAPLUS, CUU #### [address] Urobilinogen,Urine Normal Normal Normal [facility] Comment on above: Order Comment: Name Collection Type:: Voided Performed By: #### A DDONUAPLUS, CUU #### [address] WBC CLUMP, Urine Many High None Seen [facility] Comment on above: Order Comment: Name Collection Type:: Voided Performed By: #### A DDONUAPLUS, CUU #### [facility] [address] WBC,Urine 50 [HPF] High 0-4 [facility] Comment on above: Order Comment: Name Collection Type:: Voided Performed By: #### A DDONUAPLUS, CUU #### [facility] [address] Epithelial cells.squamous [# /area] in Urine sediment by Automated countOrdered By: Maureen Gilmore on 04-29-2024 Epithelial cells.squamous Auto (Urine sed) [#/Area] Epithelial cells.squamous [#/area] in Urine sediment by Automated count High 0-2 [facility] Erythrocytes [#/area] in Uri ne sediment by Automated countOrdered By: Maureen Gilmore on 04-29-2024 RBC Auto (Urine sed) [#/Area] Erythrocytes [#/area] in Urine sediment by Automated count 0-4 [facility] Glucose [Mass/volume] in Uri ne by Test stripOrdered By: Maureen Gilmore on 04-29-2024 Glucose Test strip (U) [Mass/Vol] Glucose [Mass/volume] in Urine by Test strip Normal [facility] Hemoglobin Test strip Ql (U) Ordered By: Maureen Gilmore on 04-29-2024 Hemoglobin Ql (U) Hemoglobin [Presence] in Urine by Test strip Negative [facility] Hyaline casts [#/area] in Ur ine sediment by Automated countOrdered By: Maureen Gilmore on 04-29-2024 Hyaline casts Auto (Urine sed) [#/Area] Hyaline casts [#/area] in Urine sediment by Automated count 0-8 [facility] Ketones Test strip Ql (U)Ord ered By: Maureen Gilmore on 04-29-2024 Ketones Ql (U) Ketones [Presence] in Urine by Test strip Negative [facility] Leukocyte clumps [Presence] in Urine by AutomatedOrdered By: Maureen Gilmore on 04-29-2024 Leukocyte clumps Auto Ql (U) Leukocyte clumps [Presence] in Urine by Automated High None Seen [facility] Leukocyte esterase [Presence ] in Urine by Test stripOrdered By: Maureen Gilmore on 04-29-2024 Leukocyte esterase Test strip Ql (U) Leukocyte esterase [Presence] in Urine by Test strip High Negative [facility] Leukocytes [#/area] in Urine sediment by Automated countOrdered By: Maureen Gilmore on 04-29-2024 WBC Auto (Urine sed) [#/Area] Leukocytes [#/area] in Urine sediment by Automated count High 0-4 [facility] Mucus [Presence] in Urine by AutomatedOrdered By: Maureen Gilmore on 04-29-2024 Mucus Auto Ql (U) Mucus [Presence] in Urine by Automated [facility] Nitrite Test strip Ql (U)Ord ered By: Maureen Gilmore on 04-29-2024 Nitrite Ql (U) Nitrite [Presence] in Urine by Test strip Negative [facility] Protein Test strip (U) [Mass /Vol]Ordered By: Maureen Gilmore on 04-29-2024 Protein (U) [Mass/Vol] Protein [Mass/volume] in Urine by Test strip Negative [facility] Specific gravity Test strip (U) [Rel density]Ordered By: Maureen Gilmore on 04-29-2024 Specific gravity (U) [Rel density] Specific gravity of Urine by Test strip 1.001-1.030 [facility] Urine Cultureon 04-29-2024 Bacteria identified Cx Nom (U) ORGANISM: Klebsiella pneumoniae (O:KLEPNE) [place] Count >100,000 Aerobic LUBNA Charge (NMIC56) ----- [...] RESISTANT TO ALL B-LACTAM DRUGS. PERFORMED BY: [place] [address] PATHOLOGIST [employer] PROFESSIONAL RICHARD FAIR M.D. Normal [facility] Comment on above: Performed By: #### A DDONUAKIERA, CUU #### [address] Urine cultureOrdered By: Essence Gilmore on 04-29-2024 Bacteria identified Cx Nom (U) Abnormal [facility] Urobilinogen Test strip (U) [Mass/Vol]Ordered By: Maureen Gilmore on 04-29-2024 Urobilinogen (U) [Mass/Vol] Urobilinogen [Mass/volume] in Urine by Test strip Normal [facility] pH Test strip (U)Ordered By: Maureen Gilmore on 04-29-2024 pH (U) pH of Urine by Test strip 5.0-9.0 [facility] ECG 12 lead (Clinic Performe d)on 04-07-2024 Sinus tachycardia [facility] Work Phone: Activated partial thrombopla stin time (aPTT) in platelet poor plasma by coagulation aon 04-01-2024 aPTT Coag (PPP) [Time] Activated partial thromboplastin time (aPTT) in platelet poor plasma by coagulation a 22.3-36.2 [facility] Basophils Auto (Bld) [#/Vol] on 04-01-2024 Basophils (Bld) [#/Vol] Automated basophil count 0.0-0.1 [facility] Basophils/100 WBC Auto (Bld) on 04-01-2024 Basophils/100 WBC (Bld) Automated basophil % 0.2-2.0 [facility] Eosinophils/100 WBC Auto (Bl d)on 04-01-2024 Eosinophils/100 WBC (Bld) Automated eosinophil % 0.9-7.0 [facility] Erythrocyte distribution wid th Auto (RBC) [Ratio]on 04-01-2024 Erythrocyte distribution width (RBC) [Ratio] Erythrocyte distribution width [Ratio] by Automated count High 11.0-15.0 [facility] Estimated glomerular filtrat ion rate (GFR) non- Americanon 04-01-2024 GFR/1.73 sq M.predicted among non-blacks MDRD (S/P/Bld) [Vol rate/Area] Estimated glomerular filtration rate (GFR) non- >=60 mL/min/1.73m 2 [facility] Hematocrit Auto (Bld) [Volum e fraction]on 04-01-2024 Hematocrit (Bld) [Volume fraction] Hematocrit [Volume Fraction] of Blood by Automated count 36.0-48.0 [facility] Hemoglobin [Mass/volume] in Bloodon 04-01-2024 Hemoglobin (Bld) [Mass/Vol] Hemoglobin [Mass/volume] in Blood 12.0-16.0 [facility] INR in Platelet poor plasma by Coagulation assayon 04-01-2024 INR Coag (PPP) [Relative time] INR in Platelet poor plasma by Coagulation assay [facility] Comment on above: DESIRED INR:2.0-3.0 CONDITIONS NOT LISTED BELOW2.5-3.5 FOR PROSTHETIC HEART VALVE REPLACEMENT2.5-3.5 RECURRENT THROMBOSIS Laboratory - Chemistry and C hemistry - challengeon 04-01-2024 Calcium [Mass/Vol] 8.6 mg/dL 8.5-10.1 [facility] Chloride [Moles/Vol] 94 mmol/L Low 98-107 [facility] CO2 [Moles/Vol] 23.7 mmol/L 21.0-32.0 [facility] Creatinine [Mass/Vol] 0.71 mg/dL 0.55-1.02 [facility] GFR/1.73 sq M.predicted MDRD (S/P/Bld) [Vol rate/Area] mL/min/{1.73_m2} >=60 mL/min/1.73m 2 [facility] Glucose [Mass/Vol] 74 mg/dL 74-106 [facility] Potassium [Moles/Vol] 5.0 mmol/L 3.5-5.1 [facility] Sodium [Moles/Vol] 129 mmol/L Low 136-145 [facility] Urea nitrogen [Mass/Vol] 7.0 mg/dL 7.0-18.0 [facility] Urea nitrogen/Creatinine [Mass ratio] 9.9 mg/mg [facility] Laboratory - Hematology and Cell countson 04-01-2024 Immature granulocytes/100 WBC (Bld) 0.0 % 0.0-0.5 [facility] Leukocytes [#/volume] correc patty for nucleated erythrocytes in Blood by Automated counon 04-01-2024 WBC corrected for nucl RBC Auto (Bld) [#/Vol] Leukocytes [#/volume] corrected for nucleated erythrocytes in Blood by Automated coun 4.0-11.0 [facility] Lymphocytes Auto (Bld) [#/Vo l]on 04-01-2024 Lymphocytes (Bld) [#/Vol] Lymphocytes [#/volume] in Blood by Automated count 1.2-3.8 [facility] Lymphocytes/100 WBC Auto (Bl d)on 04-01-2024 Lymphocytes/100 WBC (Bld) Lymphocytes/100 leukocytes in Blood by Automated count 20.5-60.0 [facility] MCH Auto (RBC) [Entitic mass ]on 04-01-2024 MCH (RBC) [Entitic mass] MCH [Entitic mass] by Automated count 26.7-34.0 [facility] MCHC Auto (RBC) [Mass/Vol]on 04-01-2024 MCHC (RBC) [Mass/Vol] MCHC [Mass/volume] by Automated count 29.9-35.2 [facility] MCV Auto (RBC) [Entitic vol] on 04-01-2024 MCV (RBC) [Entitic vol] MCV [Entitic volume] by Automated count 81.0-99.0 [facility] Monocytes Auto (Bld) [#/Vol] on 04-01-2024 Monocytes (Bld) [#/Vol] Automated blood monocyte count 0.3-0.8 [facility] Monocytes/100 WBC Auto (Bld) on 04-01-2024 Monocytes/100 WBC (Bld) Automated monocyte % 1.7-12.0 [facility] Neutrophils Auto (Bld) [#/Vo l]on 04-01-2024 Neutrophils (Bld) [#/Vol] Neutrophils [#/volume] in Blood by Automated count 1.4-6.5 [facility] Neutrophils/100 WBC Auto (Bl d)on 04-01-2024 Neutrophils/100 WBC (Bld) Automated neutrophil % 43.0-75.0 [facility] No Panel InformationOrdered By: Ana Lilia Moreno on 04-01-2024 MRSA Screening Culture [facility] No Panel Informationon 04-01 Eosinophils # (Auto) 0.1 10 3/uL 0.0-0.7 [facility] Immature Granulocyte # (Auto) 0.00 10 3/uL 0.00-0.03 [facility] Platelet mean volume Auto (B ld) [Entitic vol]on 04-01-2024 Platelet mean volume (Bld) [Entitic vol] Platelet mean volume [Entitic volume] in Blood by Automated count Low 9.5-13.5 [facility] Platelets Auto (Bld) [#/Vol] on 04-01-2024 Platelets (Bld) [#/Vol] Platelets [#/volume] in Blood by Automated count 150-450 [facility] Prothrombin time (PT)on PT Coag (PPP) [Time] Prothrombin time (PT) 9.0-11.6 [facility] RBC Auto (Bld) [#/Vol]on RBC (Bld) [#/Vol] Erythrocytes [#/volume] in Blood by Automated count 4.20-5.40 [facility] Serum or plasma anion gap de terminationon 04-01-2024 Anion gap [Moles/Vol] Serum or plasma anion gap determination [facility] Basophils Auto (Bld) [#/Vol] on 08-27-2024 Basophils (Bld) [#/Vol] 0.1 10 3/uL 0.0-0.1 [facility] Basophils (Bld) [#/Vol] Automated basophil count 0.0-0.1 [facility] Basophils/100 WBC Auto (Bld) on 01-20-2024 Basophils/100 WBC (Bld) 0.7 % 0.2-2.0 [facility] Basophils/100 WBC (Bld) Automated basophil % 0.2-2.0 [facility] Eosinophils/100 WBC Auto (Bl d)on 01-20-2024 Eosinophils/100 WBC (Bld) 2.7 % 0.9-7.0 [facility] Eosinophils/100 WBC (Bld) Automated eosinophil % 0.9-7.0 [facility] Erythrocyte distribution wid th Auto (RBC) [Ratio]on 01-20-2024 Erythrocyte distribution width (RBC) [Ratio] 16.8 % High 11.0-15.0 [facility] Erythrocyte distribution width (RBC) [Ratio] Erythrocyte distribution width [Ratio] by Automated count High 11.0-15.0 [facility] Estimated glomerular filtrat ion rate (GFR) non- Americanon 01-20-2024 GFR/1.73 sq M.predicted among non-blacks MDRD (S/P/Bld) [Vol rate/Area] mL/min/{1.73_m2} >=60 [facility] GFR/1.73 sq M.predicted among non-blacks MDRD (S/P/Bld) [Vol rate/Area] Estimated glomerular filtration rate (GFR) non- >=60 [facility] Globulin Calc (S) [Mass/Vol] on 01-20-2024 Globulin (S) [Mass/Vol] 4.8 g/dL [facility] Globulin (S) [Mass/Vol] Serum globulin measurement by calculation (mass/volume) [facility] Hematocrit Auto (Bld) [Volum e fraction]on 01-20-2024 Hematocrit (Bld) [Volume fraction] 34.3 % Low 36.0-48.0 [facility] Hematocrit (Bld) [Volume fraction] Hematocrit [Volume Fraction] of Blood by Automated count Low 36.0-48.0 [facility] Hemoglobin [Mass/volume] in Bloodon 01-20-2024 Hemoglobin (Bld) [Mass/Vol] 10.9 g/dL Low 12.0-16.0 [facility] Hemoglobin (Bld) [Mass/Vol] Hemoglobin [Mass/volume] in Blood Low 12.0-16.0 [facility] Laboratory - Chemistry and C hemistry - challengeon 01-20-2024 Albumin [Mass/Vol] 2.9 g/dL Low 3.4-5.0 [facility] ALP [Catalytic activity/Vol] 205 U/L High 46-116 [facility] ALT [Catalytic activity/Vol] 24 U/L 14-59 [facility] AST [Catalytic activity/Vol] 48 U/L High 15-37 [facility] Bilirubin [Mass/Vol] 0.3 mg/dL 0.2-1.0 [facility] Calcium [Mass/Vol] 9.3 mg/dL 8.5-10.1 [facility] Chloride [Moles/Vol] 97 mmol/L Low 98-107 [facility] CO2 [Moles/Vol] 23.4 mmol/L 21.0-32.0 [facility] Creatinine [Mass/Vol] 0.83 mg/dL 0.55-1.02 [facility] GFR/1.73 sq M.predicted MDRD (S/P/Bld) [Vol rate/Area] mL/min/{1.73_m2} >=60 [facility] Glucose [Mass/Vol] 92 mg/dL 74-106 [facility] Magnesium [Mass/Vol] 1.9 mg/dL 1.8-2.4 [facility] Potassium [Moles/Vol] 3.7 mmol/L 3.5-5.1 [facility] Protein [Mass/Vol] 7.7 g/dL 6.4-8.2 [facility] Sodium [Moles/Vol] 135 mmol/L Low 136-145 [facility] Urea nitrogen [Mass/Vol] 4.0 mg/dL Low 7.0-18.0 [facility] Urea nitrogen/Creatinine [Mass ratio] 4.8 mg/mg [facility] Laboratory - Hematology and Cell countson 01-20-2024 Immature granulocytes/100 WBC (Bld) 0.5 % 0.0-0.5 [facility] Leukocytes [#/volume] correc patty for nucleated erythrocytes in Blood by Automated counon 01-20-2024 WBC corrected for nucl RBC Auto (Bld) [#/Vol] 8.6 10 3/uL 4.0-11.0 [facility] WBC corrected for nucl RBC Auto (Bld) [#/Vol] Leukocytes [#/volume] corrected for nucleated erythrocytes in Blood by Automated coun 4.0-11.0 [facility] Lymphocytes Auto (Bld) [#/Vo l]on 01-20-2024 Lymphocytes (Bld) [#/Vol] 2.4 10 3/uL 1.2-3.8 [facility] Lymphocytes (Bld) [#/Vol] Lymphocytes [#/volume] in Blood by Automated count 1.2-3.8 [facility] Lymphocytes/100 WBC Auto (Bl d)on 01-20-2024 Lymphocytes/100 WBC (Bld) 28.2 % 20.5-60.0 [facility] Lymphocytes/100 WBC (Bld) Lymphocytes/100 leukocytes in Blood by Automated count 20.5-60.0 [facility] MCH Auto (RBC) [Entitic mass ]on 01-20-2024 MCH (RBC) [Entitic mass] 29.4 pg 26.7-34.0 [facility] MCH (RBC) [Entitic mass] MCH [Entitic mass] by Automated count 26.7-34.0 [facility] MCHC Auto (RBC) [Mass/Vol]on 01-20-2024 MCHC (RBC) [Mass/Vol] 31.8 g/dL 29.9-35.2 [facility] MCHC (RBC) [Mass/Vol] MCHC [Mass/volume] by Automated count 29.9-35.2 [facility] MCV Auto (RBC) [Entitic vol] on 01-20-2024 MCV (RBC) [Entitic vol] 92.5 fL 81.0-99.0 [facility] MCV (RBC) [Entitic vol] MCV [Entitic volume] by Automated count 81.0-99.0 [facility] Monocytes Auto (Bld) [#/Vol] on 01-20-2024 Monocytes (Bld) [#/Vol] 0.7 10 3/uL 0.3-0.8 [facility] Monocytes (Bld) [#/Vol] Automated blood monocyte count 0.3-0.8 [facility] Monocytes/100 WBC Auto (Bld) on 01-20-2024 Monocytes/100 WBC (Bld) 7.8 % 1.7-12.0 [facility] Monocytes/100 WBC (Bld) Automated monocyte % 1.7-12.0 [facility] Neutrophils Auto (Bld) [#/Vo l]on 01-20-2024 Neutrophils (Bld) [#/Vol] 5.2 10 3/uL 1.4-6.5 [facility] Neutrophils (Bld) [#/Vol] Neutrophils [#/volume] in Blood by Automated count 1.4-6.5 [facility] Neutrophils/100 WBC Auto (Bl d)on 01-20-2024 Neutrophils/100 WBC (Bld) 60.1 % 43.0-75.0 [facility] Neutrophils/100 WBC (Bld) Automated neutrophil % 43.0-75.0 [facility] No Panel Informationon 01-19 Eosinophils # (Auto) 0.2 10 3/uL 0.0-0.7 [facility] Immature Granulocyte # (Auto) 0.04 10 3/uL High 0.00-0.03 [facility] Platelet mean volume Auto (B ld) [Entitic vol]on 01-20-2024 Platelet mean volume (Bld) [Entitic vol] 10.0 fL 9.5-13.5 [facility] Platelet mean volume (Bld) [Entitic vol] Platelet mean volume [Entitic volume] in Blood by Automated count 9.5-13.5 [facility] Platelets Auto (Bld) [#/Vol] on 01-20-2024 Platelets (Bld) [#/Vol] 456 10 3/uL High 150-450 [facility] Platelets (Bld) [#/Vol] Platelets [#/volume] in Blood by Automated count High 150-450 [facility] RBC Auto (Bld) [#/Vol]on RBC (Bld) [#/Vol] 3.71 10 6/uL Low 4.20-5.40 [facility] RBC (Bld) [#/Vol] Erythrocytes [#/volume] in Blood by Automated count Low 4.20-5.40 [facility] Serum or plasma albumin/glob ulin mass ratioon 01-20-2024 Albumin/Globulin [Mass ratio] 0.6 {ratio} [facility] Albumin/Globulin [Mass ratio] Serum or plasma albumin/globulin mass ratio [facility] Serum or plasma anion gap de terminationon 01-20-2024 Anion gap [Moles/Vol] 18.3 mmol/L [facility] Anion gap [Moles/Vol] Serum or plasma anion gap determination [facility] Basophils Auto (Bld) [#/Vol] on 01-12-2024 Basophils (Bld) [#/Vol] 0.1 10 3/uL 0.0-0.1 [facility] Basophils (Bld) [#/Vol] Automated basophil count 0.0-0.1 [facility] Basophils/100 WBC Auto (Bld) on 01-12-2024 Basophils/100 WBC (Bld) 0.7 % 0.2-2.0 [facility] Basophils/100 WBC (Bld) Automated basophil % 0.2-2.0 [facility] Eosinophils/100 WBC Auto (Bl d)on 01-12-2024 Eosinophils/100 WBC (Bld) 2.3 % 0.9-7.0 [facility] Eosinophils/100 WBC (Bld) Automated eosinophil % 0.9-7.0 [facility] Erythrocyte distribution wid th Auto (RBC) [Ratio]on 01-12-2024 Erythrocyte distribution width (RBC) [Ratio] 18.2 % High 11.0-15.0 [facility] Erythrocyte distribution width (RBC) [Ratio] Erythrocyte distribution width [Ratio] by Automated count High 11.0-15.0 [facility] Estimated glomerular filtrat ion rate (GFR) non- Americanon 01-12-2024 GFR/1.73 sq M.predicted among non-blacks MDRD (S/P/Bld) [Vol rate/Area] mL/min/{1.73_m2} >=60 [facility] GFR/1.73 sq M.predicted among non-blacks MDRD (S/P/Bld) [Vol rate/Area] Estimated glomerular filtration rate (GFR) non- >=60 [facility] Globulin Calc (S) [Mass/Vol] on 01-12-2024 Globulin (S) [Mass/Vol] 3.2 g/dL [facility] Globulin (S) [Mass/Vol] Serum globulin measurement by calculation (mass/volume) [facility] Hematocrit Auto (Bld) [Volum e fraction]on 01-12-2024 Hematocrit (Bld) [Volume fraction] 29.7 % Low 36.0-48.0 [facility] Hematocrit (Bld) [Volume fraction] Hematocrit [Volume Fraction] of Blood by Automated count Low 36.0-48.0 [facility] Hemoglobin [Mass/volume] in Bloodon 01-12-2024 Hemoglobin (Bld) [Mass/Vol] 9.5 g/dL Low 12.0-16.0 [facility] Hemoglobin (Bld) [Mass/Vol] Hemoglobin [Mass/volume] in Blood Low 12.0-16.0 [facility] Laboratory - Chemistry and C hemistry - challengeon 01-12-2024 Albumin [Mass/Vol] 2.3 g/dL Low 3.4-5.0 [facility] ALP [Catalytic activity/Vol] 142 U/L High 46-116 [facility] ALT [Catalytic activity/Vol] 19 U/L 14-59 [facility] AST [Catalytic activity/Vol] 30 U/L 15-37 [facility] Bilirubin [Mass/Vol] 0.4 mg/dL 0.2-1.0 [facility] Calcium [Mass/Vol] 9.0 mg/dL 8.5-10.1 [facility] Chloride [Moles/Vol] 99 mmol/L 98-107 [facility] CO2 [Moles/Vol] 29.5 mmol/L 21.0-32.0 [facility] Creatinine [Mass/Vol] 0.56 mg/dL 0.55-1.02 [facility] GFR/1.73 sq M.predicted MDRD (S/P/Bld) [Vol rate/Area] mL/min/{1.73_m2} >=60 [facility] Glucose [Mass/Vol] 95 mg/dL 74-106 [facility] Potassium [Moles/Vol] 3.5 mmol/L 3.5-5.1 [facility] Protein [Mass/Vol] 5.5 g/dL Low 6.4-8.2 [facility] Sodium [Moles/Vol] 134 mmol/L Low 136-145 [facility] Urea nitrogen [Mass/Vol] 10.0 mg/dL 7.0-18.0 [facility] Urea nitrogen/Creatinine [Mass ratio] 17.9 mg/mg [facility] Laboratory - Hematology and Cell countson 01-12-2024 Immature granulocytes/100 WBC (Bld) 0.5 % 0.0-0.5 [facility] Leukocytes [#/volume] correc patty for nucleated erythrocytes in Blood by Automated counon 01-12-2024 WBC corrected for nucl RBC Auto (Bld) [#/Vol] 8.6 10 3/uL 4.0-11.0 [facility] WBC corrected for nucl RBC Auto (Bld) [#/Vol] Leukocytes [#/volume] corrected for nucleated erythrocytes in Blood by Automated coun .0-11.0 [facility] Lymphocytes Auto (Bld) [#/Vo l]on 01-12-2024 Lymphocytes (Bld) [#/Vol] 1.8 10 3/uL 1.2-3.8 [facility] Lymphocytes (Bld) [#/Vol] Lymphocytes [#/volume] in Blood by Automated count 1.2-3.8 [facility] Lymphocytes/100 WBC Auto (Bl d)on 01-12-2024 Lymphocytes/100 WBC (Bld) 20.7 % 20.5-60.0 [facility] Lymphocytes/100 WBC (Bld) Lymphocytes/100 leukocytes in Blood by Automated count 20.5-60.0 [facility] MCH Auto (RBC) [Entitic mass ]on 01-12-2024 MCH (RBC) [Entitic mass] 30.2 pg 26.7-34.0 [facility] MCH (RBC) [Entitic mass] MCH [Entitic mass] by Automated count 26.7-34.0 [facility] MCHC Auto (RBC) [Mass/Vol]on 01-12-2024 MCHC (RBC) [Mass/Vol] 32.0 g/dL 29.9-35.2 [facility] MCHC (RBC) [Mass/Vol] MCHC [Mass/volume] by Automated count 29.9-35.2 [facility] MCV Auto (RBC) [Entitic vol] on 01-12-2024 MCV (RBC) [Entitic vol] 94.3 fL 81.0-99.0 [facility] MCV (RBC) [Entitic vol] MCV [Entitic volume] by Automated count 81.0-99.0 [facility] Monocytes Auto (Bld) [#/Vol] on 01-12-2024 Monocytes (Bld) [#/Vol] 1.0 10 3/uL High 0.3-0.8 [facility] Monocytes (Bld) [#/Vol] Automated blood monocyte count High 0.3-0.8 [facility] Monocytes/100 WBC Auto (Bld) on 01-12-2024 Monocytes/100 WBC (Bld) 11.3 % 1.7-12.0 [facility] Monocytes/100 WBC (Bld) Automated monocyte % 1.7-12.0 [facility] Neutrophils Auto (Bld) [#/Vo l]on 01-12-2024 Neutrophils (Bld) [#/Vol] 5.6 10 3/uL 1.4-6.5 [facility] Neutrophils (Bld) [#/Vol] Neutrophils [#/volume] in Blood by Automated count 1.4-6.5 [facility] Neutrophils/100 WBC Auto (Bl d)on 01-12-2024 Neutrophils/100 WBC (Bld) 64.5 % 43.0-75.0 [facility] Neutrophils/100 WBC (Bld) Automated neutrophil % 43.0-75.0 [facility] Nicotineon 01-12-2024 Cotinine <5 Normal [facility] Comment on above: Performed By: #### P TT, PT #### [facility] [employer] [address] [place] [id number] Telehealth Nurse: Tato Ibarra MD Nicotine <5 Normal [facility] Comment on above: Result Comment: (NOT [...] developed and its performance characteristics determined by [employer]. It has not been cleared or approved by the [place] Food and Drug Administration. This test was performed in a CLIA certified laboratory and is intended for clinical purposes. Performed By: [employer] [address] [place] [id number] Har[employer] Mender: José Jackson MD, PhD CLIA Number: [id number] Performed By: #### P TT, PT #### [facility] [address] [place] [address] [id number] Telehealth Nurse: Tato Ibarra MD No Panel Informationon 01-11 Eosinophils # (Auto) 0.2 10 3/uL 0.0-0.7 [facility] Immature Granulocyte # (Auto) 0.04 10 3/uL High 0.00-0.03 [facility] Platelet mean volume Auto (B ld) [Entitic vol]on 01-12-2024 Platelet mean volume (Bld) [Entitic vol] 9.9 fL 9.5-13.5 [facility] Platelet mean volume (Bld) [Entitic vol] Platelet mean volume [Entitic volume] in Blood by Automated count 9.5-13.5 [facility] Platelets Auto (Bld) [#/Vol] on 01-12-2024 Platelets (Bld) [#/Vol] 408 10 3/uL 150-450 [facility] Platelets (Bld) [#/Vol] Platelets [#/volume] in Blood by Automated count 150-450 [facility] RBC Auto (Bld) [#/Vol]on RBC (Bld) [#/Vol] 3.15 10 6/uL Low 4.20-5.40 [facility] RBC (Bld) [#/Vol] Erythrocytes [#/volume] in Blood by Automated count Low 4.20-5.40 [facility] Serum or plasma albumin/glob ulin mass ratioon 01-12-2024 Albumin/Globulin [Mass ratio] 0.7 {ratio} [facility] Albumin/Globulin [Mass ratio] Serum or plasma albumin/globulin mass ratio [facility] Serum or plasma anion gap de terminationon 01-12-2024 Anion gap [Moles/Vol] 9.0 mmol/L [facility] Anion gap [Moles/Vol] Serum or plasma anion gap determination [facility] Hgb/Hcton 01-11-2024 Hematocrit (Bld) [Volume fraction] 27.8 % Low 36.3-47.1 [facility] Comment on above: Performed By: #### O SMO, LD, MG, JESUS, TSHX, LIVP, B12FOL, LACTIC, FT4, BMP #### [employer] [address] [place], [place] [id number] Telehealth Nurse: Tato Ibarra MD Hemoglobin (Bld) [Mass/Vol] 8.7 g/dL Low 11.9-15.1 [facility] Comment on above: Performed By: #### O SMO, LD, MG, JESUS, TSHX, LIVP, B12FOL, LACTIC, FT4, BMP #### [employer] [address] [place] [address] Telehealth Nurse: Tato Ibarra MD Basic Metab w/rfx MGon 01-09 Anion gap [Moles/Vol] 9 mmol/L Normal 9-16 [facility] Comment on above: Performed By: #### P TT, PT #### [address] [address] Telehealth Nurse: Tato Ibarra MD Calcium [Mass/Vol] 8.0 mg/dL Low 8.6-10.4 [facility] Comment on above: Performed By: #### P TT, PT #### [address] [address] Telehealth Nurse: Tato Ibarra MD Chloride [Moles/Vol] 101 mmol/L Normal 98-107 [facility] Comment on above: Performed By: #### P TT, PT #### [address] [address] Telehealth Nurse: Tato Ibarra MD CO2 [Moles/Vol] 27 mmol/L Normal 20-31 [facility] Comment on above: Performed By: #### P TT, PT #### [address] [address] Telehealth Nurse: Tato Ibarra MD Creatinine [Mass/Vol] 0.4 mg/dL Low 0.50-0.90 [facility] Comment on above: Performed By: #### P TT, PT #### [address] [address] Telehealth Nurse: Tato Ibarra MD GFR/1.73 sq M.predicted among non-blacks MDRD (S/P/Bld) [Vol rate/Area] mL/min/{1.73_m2} Normal >60 [facility] Comment on above: Result Comment: These [...] Performed By: #### P TT, PT #### [address] [address] Telehealth Nurse: Tato Ibarra MD Glucose [Mass/Vol] 87 mg/dL Normal 74-99 [facility] Comment on above: Performed By: #### P TT, PT #### [address] [address] Telehealth Nurse: Tato Ibarra MD Potassium [Moles/Vol] 3.2 mmol/L Low 3.7-5.3 [facility] Comment on above: Result Comment: SPEC IMEN SLIGHTLY HEMOLYZED, RESULTS MAY BE ADVERSELY AFFECTED. Performed By: #### P TT, PT #### [address] [address] Telehealth Nurse: Tato Ibarra MD Sodium [Moles/Vol] 137 mmol/L Normal 136-145 [facility] Comment on above: Performed By: #### P TT, PT #### [address] [address] Telehealth Nurse: Tato Ibarra MD Urea nitrogen [Mass/Vol] 4 mg/dL Low 6-20 [facility] Comment on above: Performed By: #### P TT, PT #### [address] [address] Telehealth Nurse: Tato Ibarra MD CBC with Diffon 01-10-2024 Platelet, Fluoresc. 190 k/uL Normal 138-453 [facility] Comment on above: Performed By: #### P TT, PT #### [address] [address] Telehealth Nurse: Tato Ibarra MD PLT, Immature Fract. 4.6 % Normal 1.1-10.3 [facility] Comment on above: Performed By: #### P TT, PT #### [place] [address] Telehealth Nurse: Tato Ibarra MD Abs. Basophil 0.03 k/uL Normal 0.00-0.20 [facility] Comment on above: Performed By: #### P TT, PT #### [place] [address] Telehealth Nurse: Tato Ibarra MD Abs.Imm.Granulocyte 0.04 k/uL Normal 0.00-0.30 [facility] Comment on above: Performed By: #### P TT, PT #### [place] [address] Telehealth Nurse: Tato Ibarra MD Abs.Neutrophil (Seg) 3.17 k/uL Normal 1.50-8.10 [facility] Comment on above: Performed By: #### P TT, PT #### [place] [address] Telehealth Nurse: Tato Ibarra MD Basophils/100 WBC (Bld) 1 % Normal 0-2 [facility] Comment on above: Performed By: #### P TT, PT #### [place] [address] Telehealth Nurse: Tato Ibarra MD Eosinophils (Bld) [#/Vol] 0.12 10*3/uL Normal 0.00-0.44 [facility] Comment on above: Performed By: #### P TT, PT #### [place] [address] Telehealth Nurse: Tato Ibarra MD Eosinophils/100 WBC (Bld) 2 % Normal 1-4 [facility] Comment on above: Performed By: #### P TT, PT #### [address] [address] Telehealth Nurse: Tato Ibarra MD Erythrocyte distribution width (RBC) [Ratio] 18.7 % High 11.8-14.4 [facility] Comment on above: Performed By: #### P TT, PT #### [address] [address] Telehealth Nurse: Tato Ibarra MD Hematocrit (Bld) [Volume fraction] 27.1 % Low 36.3-47.1 [facility] Comment on above: Performed By: #### P TT, PT #### [address] [address] Telehealth Nurse: Tato Ibarra MD Hemoglobin (Bld) [Mass/Vol] 8.9 g/dL Low 11.9-15.1 [facility] Comment on above: Performed By: #### P TT, PT #### [address] [address] Telehealth Nurse: Tato Ibarra MD Immature granulocytes/100 WBC (Bld) 1 % High 0 [facility] Comment on above: Performed By: #### P TT, PT #### [address] [address] Telehealth Nurse: Tato Ibarra MD Lymphocytes (Bld) [#/Vol] 1.36 10*3/uL Normal 1.10-3.70 [facility] Comment on above: Performed By: #### P TT, PT #### [address] [address] Telehealth Nurse: Tato Ibarra MD Lymphocytes/100 WBC (Bld) 24 % Normal 24-43 [facility] Comment on above: Performed By: #### P TT, PT #### [facility] [employer] [address] [place] [address] Telehealth Nurse: Tato Ibarra MD MCH (RBC) [Entitic mass] 29.8 pg Normal 25.2-33.5 [facility] Comment on above: Performed By: #### P TT, PT #### [address] [address] Telehealth Nurse: Tato Ibarra MD MCHC (RBC) [Mass/Vol] 32.8 g/dL Normal 28.4-34.8 [facility] Comment on above: Performed By: #### P TT, PT #### [address] [address] Telehealth Nurse: Tato Ibarra MD MCV (RBC) [Entitic vol] 90.6 fL Normal 82.6-102.9 [facility] Comment on above: Performed By: #### P TT, PT #### [address] [address] Telehealth Nurse: Tato Ibarra MD Monocytes (Bld) [#/Vol] 0.85 10*3/uL Normal 0.10-1.20 [facility] Comment on above: Performed By: #### P TT, PT #### [address] [address] Telehealth Nurse: Tato Ibarra MD Monocytes/100 WBC (Bld) 15 % High 3-12 [facility] Comment on above: Performed By: #### P TT, PT #### [address] [address] Telehealth Nurse: Tato Ibarra MD Neutrophil (Seg) 57 % Normal 36-65 [facility] Comment on above: Performed By: #### P TT, PT #### [address] [address] Telehealth Nurse: Tato Ibarra MD NRBC Automated 0.0 per 100 WBC Normal 0.0 [facility] Comment on above: Performed By: #### P TT, PT #### [address] [address] Telehealth Nurse: Tato Ibarra MD Platelet Count See Reflexed IPF Result Normal 138-453 [facility] Comment on above: Performed By: #### P TT, PT #### [address] [address] Telehealth Nurse: Tato Ibarra MD RBC (Bld) [#/Vol] 2.99 10*6/uL Low 3.95-5.11 [facility] Comment on above: Performed By: #### P TT, PT #### [address] [address] Telehealth Nurse: Tato Ibarra MD RBC morphology finding Nom (Bld) ANISOCYTOSIS PRESENT Normal [facility] Comment on above: Performed By: #### P TT, PT #### [address] [address] Telehealth Nurse: Tato Ibarra MD WBC (Bld) [#/Vol] 5.6 10*3/uL Normal 3.5-11.3 [facility] Comment on above: Performed By: #### P TT, PT #### [address] [address] Telehealth Nurse: Tato Ibarra MD Calcium, Ionicon 01-10-2024 Calcium [Moles/Vol] 1.18 mmol/L Normal 1.13-1.33 [facility] Comment on above: Performed By: #### P TT, PT #### [address] [address] Telehealth Nurse: Tato Ibarra MD Hgb/Hcton 01-10-2024 Hematocrit (Bld) [Volume fraction] 25.4 % Low 36.3-47.1 [facility] Comment on above: Performed By: #### P TT, PT #### [address] [id number] Telehealth Nurse: Tato Ibarra MD Hemoglobin (Bld) [Mass/Vol] 8.1 g/dL Low 11.9-15.1 [facility] Comment on above: Performed By: #### P TT, PT #### [address] [id number] Telehealth Nurse: Tato Ibarra MD Magnesiumon 01-10-2024 Magnesium [Mass/Vol] 1.8 mg/dL Normal 1.6-2.6 [facility] Comment on above: Performed By: #### P TT, PT #### [address] [id number] Telehealth Nurse: Tato Ibarra MD Type + Screenon 01-10-2024 Type + Screen Sample Expiration 01/09/2024,2359 Arm Band Number [id number] ABO/Rh(D) O NEGATIVE Antibody Screen NEGATIVE Unit Number [id number] Blood Component Type Leukocyte Reduced Red Cell Unit Division 00 Status of Unit TRANSFUSED Transfusion Status OK TO TRANSFUSE Crossmatch Result COMPATIBLE Unit Number [id number] Blood Component Type Leukocyte Reduced Red Cell Unit Division 00 Status of Unit REL FROM ALLOC Transfusion Status DO NOT ISSUE FOR TRANSFUSION Crossmatch Result NOT TESTED Normal [facility] Comment on above: Performed By: #### O SMO, LD, MG, JESUS, TSHX, LIVP, B12FOL, LACTIC, FT4, BMP #### [address] [phone] Telehealth Nurse: Tato Ibarra MD Basic Metab w/rfx MGon 01-08 Anion gap [Moles/Vol] 8 mmol/L Low 02-08 [facility] Comment on above: Performed By: #### O SMO, LD, MG, JESUS, TSHX, LIVP, B12FOL, LACTIC, FT4, BMP #### [address] [place] [phone] Telehealth Nurse: Tato Ibarra MD Calcium [Mass/Vol] 8.1 mg/dL Low 8.6-10.4 [facility] Comment on above: Performed By: #### O SMO, LD, MG, JESUS, TSHX, LIVP, B12FOL, LACTIC, FT4, BMP #### [address] [address] Telehealth Nurse: Tato Ibarra MD Chloride [Moles/Vol] 103 mmol/L Normal 98-107 [facility] Comment on above: Performed By: #### O SMO, LD, MG, JESUS, TSHX, LIVP, B12FOL, LACTIC, FT4, BMP #### [address] [address] Telehealth Nurse: Tato Ibarra MD CO2 [Moles/Vol] 27 mmol/L Normal 20-31 [facility] Comment on above: Performed By: #### O SMO, LD, MG, JESUS, TSHX, LIVP, B12FOL, LACTIC, FT4, BMP #### [address] [address] Telehealth Nurse: Tato Ibarra MD Creatinine [Mass/Vol] 0.3 mg/dL Low 0.50-0.90 [facility] Comment on above: Performed By: #### O SMO, LD, MG, JESUS, TSHX, LIVP, B12FOL, LACTIC, FT4, BMP #### [address] [address] Telehealth Nurse: Tato Ibarra MD GFR/1.73 sq M.predicted among non-blacks MDRD (S/P/Bld) [Vol rate/Area] mL/min/{1.73_m2} Normal >60 [facility] Comment on above: Result Comment: These [...] TSHX, LIVP, B12FOL, LACTIC, FT4, BMP #### [address] [address] Telehealth Nurse: Tato Ibarra MD Glucose [Mass/Vol] 103 mg/dL High 74-99 [facility] Comment on above: Performed By: #### O SMO, LD, MG, JESUS, TSHX, LIVP, B12FOL, LACTIC, FT4, BMP #### [address] [address] Telehealth Nurse: Tato Ibarra MD Potassium [Moles/Vol] 3.1 mmol/L Low 3.7-5.3 [facility] Comment on above: Performed By: #### O SMO, LD, MG, JESUS, TSHX, LIVP, B12FOL, LACTIC, FT4, BMP #### [address] [address] Telehealth Nurse: Tato Ibarra MD Sodium [Moles/Vol] 138 mmol/L Normal 136-145 [facility] Comment on above: Performed By: #### O SMO, LD, MG, JESUS, TSHX, LIVP, B12FOL, LACTIC, FT4, BMP #### [facility] [employer] [address] [place] [address] Telehealth Nurse: Tato Ibarra MD Urea nitrogen [Mass/Vol] 4 mg/dL Low 6-20 [facility] Comment on above: Performed By: #### O SMO, LD, MG, JESUS, TSHX, LIVP, B12FOL, LACTIC, FT4, BMP #### [address] [address] Telehealth Nurse: Tato Ibarra MD CBC with Diffon 01-09-2024 Abs. Basophil 0.03 k/uL Normal 0.00-0.20 [facility] Comment on above: Performed By: #### O SMO, LD, MG, JESUS, TSHX, LIVP, B12FOL, LACTIC, FT4, BMP #### [address] [address] Telehealth Nurse: Tato Ibarra MD Abs.Imm.Granulocyte <0.03 Normal 0.00-0.30 [facility] Comment on above: Performed By: #### O SMO, LD, MG, JESUS, TSHX, LIVP, B12FOL, LACTIC, FT4, BMP #### [address] [address] Telehealth Nurse: Tato Ibarra MD Abs.Neutrophil (Seg) 4.44 k/uL Normal 1.50-8.10 [facility] Comment on above: Performed By: #### O SMO, LD, MG, JESUS, TSHX, LIVP, B12FOL, LACTIC, FT4, BMP #### [place] [address] Telehealth Nurse: Tato Ibarra MD Basophils/100 WBC (Bld) 1 % Normal 0-2 [facility] Comment on above: Performed By: #### O SMO, LD, MG, JESUS, TSHX, LIVP, B12FOL, LACTIC, FT4, BMP #### [address] [address] Telehealth Nurse: Tato Ibarra MD Eosinophils (Bld) [#/Vol] 0.10 10*3/uL Normal 0.00-0.44 [facility] Comment on above: Performed By: #### O SMO, LD, MG, JESUS, TSHX, LIVP, B12FOL, LACTIC, FT4, BMP #### [place] [address] Telehealth Nurse: Tato Ibarra MD Eosinophils/100 WBC (Bld) 2 % Normal 1-4 [facility] Comment on above: Performed By: #### O SMO, LD, MG, JESUS, TSHX, LIVP, B12FOL, LACTIC, FT4, BMP #### [facility] [address] [place] [address] [phone] Telehealth Nurse: Tato Ibarra MD Erythrocyte distribution width (RBC) [Ratio] 19.9 % High 11.8-14.4 [facility] Comment on above: Performed By: #### O SMO, LD, MG, JESUS, TSHX, LIVP, B12FOL, LACTIC, FT4, BMP #### [facility] [address] [place] [address] [phone] Telehealth Nurse: Tato Ibarra MD Hematocrit (Bld) [Volume fraction] 24.7 % Low 36.3-47.1 [facility] Comment on above: Performed By: #### O SMO, LD, MG, JESUS, TSHX, LIVP, B12FOL, LACTIC, FT4, BMP #### [address] [address] Telehealth Nurse: Tato Ibarra MD Hemoglobin (Bld) [Mass/Vol] 7.7 g/dL Low 11.9-15.1 [facility] Comment on above: Performed By: #### O SMO, LD, MG, JESUS, TSHX, LIVP, B12FOL, LACTIC, FT4, BMP #### [facility] [address] [place] [address] [phone] Telehealth Nurse: Tato Ibarra MD Immature granulocytes/100 WBC (Bld) 0 % Normal 0 [facility] Comment on above: Performed By: #### O SMO, LD, MG, JESUS, TSHX, LIVP, B12FOL, LACTIC, FT4, BMP #### [facility] [employer] [address] [place] [address] [phone] Telehealth Nurse: Tato Ibarra MD Lymphocytes (Bld) [#/Vol] 0.91 10*3/uL Low 1.10-3.70 [facility] Comment on above: Performed By: #### O SMO, LD, MG, JESUS, TSHX, LIVP, B12FOL, LACTIC, FT4, BMP #### [address] [address] Telehealth Nurse: Tato Ibarra MD Lymphocytes/100 WBC (Bld) 15 % Low 24-43 [facility] Comment on above: Performed By: #### O SMO, LD, MG, JESUS, TSHX, LIVP, B12FOL, LACTIC, FT4, BMP #### [address] [address] Telehealth Nurse: Tato Ibarra MD MCH (RBC) [Entitic mass] 29.6 pg Normal 25.2-33.5 [facility] Comment on above: Performed By: #### O SMO, LD, MG, JESUS, TSHX, LIVP, B12FOL, LACTIC, FT4, BMP #### [address] [address] Telehealth Nurse: Tato Ibarra MD MCHC (RBC) [Mass/Vol] 31.2 g/dL Normal 28.4-34.8 [facility] Comment on above: Performed By: #### O SMO, LD, MG, JESUS, TSHX, LIVP, B12FOL, LACTIC, FT4, BMP #### [address] [address] Telehealth Nurse: Tato Ibarra MD MCV (RBC) [Entitic vol] 95.0 fL Normal 82.6-102.9 [facility] Comment on above: Performed By: #### O SMO, LD, MG, JESUS, TSHX, LIVP, B12FOL, LACTIC, FT4, BMP #### [address] [address] Telehealth Nurse: Tato Ibarra MD Monocytes (Bld) [#/Vol] 0.60 10*3/uL Normal 0.10-1.20 [facility] Comment on above: Performed By: #### O SMO, LD, MG, JESUS, TSHX, LIVP, B12FOL, LACTIC, FT4, BMP #### [address] [phone] Telehealth Nurse: Tato Ibarra MD Monocytes/100 WBC (Bld) 10 % Normal 3-12 [facility] Comment on above: Performed By: #### O SMO, LD, MG, JESUS, TSHX, LIVP, B12FOL, LACTIC, FT4, BMP #### [address] [address] Telehealth Nurse: Tato Ibarra MD Neutrophil (Seg) 73 % High 36-65 [facility] Comment on above: Performed By: #### O SMO, LD, MG, JESUS, TSHX, LIVP, B12FOL, LACTIC, FT4, BMP #### [address] [address] Telehealth Nurse: Tato Ibarra MD NRBC Automated 0.0 per 100 WBC Normal 0.0 [facility] Comment on above: Performed By: #### O SMO, LD, MG, JESUS, TSHX, LIVP, B12FOL, LACTIC, FT4, BMP #### [facility] [employer] [address] [place] [phone] Telehealth Nurse: Tato Ibarra MD Platelet mean volume (Bld) [Entitic vol] 10.4 fL Normal 8.1-13.5 [facility] Comment on above: Performed By: #### O SMO, LD, MG, JESUS, TSHX, LIVP, B12FOL, LACTIC, FT4, BMP #### [facility] [employer] [address] [place] [address] [phone] Telehealth Nurse: Tato Ibarra MD Platelets (Bld) [#/Vol] 266 10*3/uL Normal 138-453 [facility] Comment on above: Performed By: #### O SMO, LD, MG, JESUS, TSHX, LIVP, B12FOL, LACTIC, FT4, BMP #### [address] [address] Telehealth Nurse: Tato Ibarra MD RBC (Bld) [#/Vol] 2.60 10*6/uL Low 3.95-5.11 [facility] Comment on above: Performed By: #### O SMO, LD, MG, JESUS, TSHX, LIVP, B12FOL, LACTIC, FT4, BMP #### [facility] [employer] [address] [place] [phone] Telehealth Nurse: Tato Ibarra MD RBC morphology finding Nom (Bld) ANISOCYTOSIS PRESENT Normal [facility] Comment on above: Performed By: #### O SMO, LD, MG, JESUS, TSHX, LIVP, B12FOL, LACTIC, FT4, BMP #### [facility] [employer] [address] [place] [phone] Telehealth Nurse: Tato Ibarra MD WBC (Bld) [#/Vol] 6.1 10*3/uL Normal 3.5-11.3 [facility] Comment on above: Performed By: #### O SMO, LD, MG, JESUS, TSHX, LIVP, B12FOL, LACTIC, FT4, BMP #### [facility] [employer] [address] [place] [phone] Telehealth Nurse: Tato Ibarra MD Calcium, Ionicon 01-09-2024 Calcium [Moles/Vol] 1.18 mmol/L Normal 1.13-1.33 [facility] Comment on above: Performed By: #### O SMO, LD, MG, JESUS, TSHX, LIVP, B12FOL, LACTIC, FT4, BMP #### [facility] [employer] [address] [place] [address] [phone] Telehealth Nurse: Tato Ibarra MD Ferritinon 01-09-2024 Ferritin [Mass/Vol] 80 ng/mL Normal 13-150 [facility] Comment on above: Result Comment: FERRITIN Reference Ranges: Adult Males 20 - 60 years: 30 - 400 ng/mL Adult females 17 - 60 years: 13 - 150 ng/mL Adults greater than 60 years: no established reference range Pediatrics: no established reference range Performed By: #### P TT, PT #### [address] [phone] Telehealth Nurse: Tato Ibarra MD Hgb/Hcton 01-09-2024 Hematocrit (Bld) [Volume fraction] 23.7 % Low 36.3-47.1 [facility] Comment on above: Performed By: #### O SMO, LD, MG, JESUS, TSHX, LIVP, B12FOL, LACTIC, FT4, BMP #### [facility] [employer] [address] [place] [address] [phone] Telehealth Nurse: Tato Ibarra MD Hemoglobin (Bld) [Mass/Vol] 8.0 g/dL Low 11.9-15.1 [facility] Comment on above: Performed By: #### O SMO, LD, MG, JESUS, TSHX, LIVP, B12FOL, LACTIC, FT4, BMP #### [facility] [address] [place] [address] [phone] Telehealth Nurse: Tato Ibarra MD Iron Binding Cap.on 01-09-20 24 % Fe Saturation 10 % Low 20-55 [facility] Comment on above: Performed By: #### O SMO, LD, MG, JESUS, TSHX, LIVP, B12FOL, LACTIC, FT4, BMP #### [facility] [employer] [address] [place] [address] [phone] Telehealth Nurse: Tato Ibarra MD Iron [Mass/Vol] 15 ug/dL Low 37-145 [facility] Comment on above: Performed By: #### O SMO, LD, MG, JESUS, TSHX, LIVP, B12FOL, LACTIC, FT4, BMP #### [address] [address] Telehealth Nurse: Tato Ibarra MD Total Fe Binding Cap 156 ug/dL Low 250-450 [facility] Comment on above: Performed By: #### O SMO, LD, MG, JESUS, TSHX, LIVP, B12FOL, LACTIC, FT4, BMP #### [facility] [address] [place] [phone] Telehealth Nurse: Tato Ibarra MD Unbound Fe Bind Cap 141 ug/dL Normal 112-347 [facility] Comment on above: Performed By: #### O SMO, LD, MG, EJSUS, TSHX, LIVP, B12FOL, LACTIC, FT4, BMP #### [address] [address] Telehealth Nurse: Tato Ibarra MD Magnesiumon 01-09-2024 Magnesium [Mass/Vol] 2.0 mg/dL Normal 1.6-2.6 [facility] Comment on above: Performed By: #### O SMO, LD, MG, JESUS, TSHX, LIVP, B12FOL, LACTIC, FT4, BMP #### [address] [address] Telehealth Nurse: Tato Ibarra MD Basic Metab w/rfx MGon 01-07 Anion gap [Moles/Vol] 14 mmol/L Normal 9-16 [facility] Comment on above: Performed By: #### P TT, PT #### [address] [address] Telehealth Nurse: Tato Ibarra MD Calcium [Mass/Vol] 8.3 mg/dL Low 8.6-10.4 [facility] Comment on above: Performed By: #### P TT, PT #### [address] [address] Telehealth Nurse: Tato Ibarra MD Chloride [Moles/Vol] 97 mmol/L Low 98-107 [facility] Comment on above: Performed By: #### P TT, PT #### [facility] [address] [place] [phone] Telehealth Nurse: Tato Ibarra MD CO2 [Moles/Vol] 24 mmol/L Normal 20-31 [facility] Comment on above: Performed By: #### P TT, PT #### [address] [address] Telehealth Nurse: Tato Ibarra MD Creatinine [Mass/Vol] 0.3 mg/dL Low 0.50-0.90 [facility] Comment on above: Performed By: #### P TT, PT #### [address] [address] Telehealth Nurse: Tato Ibarra MD GFR/1.73 sq M.predicted among non-blacks MDRD (S/P/Bld) [Vol rate/Area] mL/min/{1.73_m2} Normal >60 [facility] Comment on above: Result Comment: These [...] Performed By: #### P TT, PT #### [address] [address] Telehealth Nurse: Tato Ibarra MD Glucose [Mass/Vol] 104 mg/dL High 74-99 [facility] Comment on above: Performed By: #### P TT, PT #### [address] [address] Telehealth Nurse: Tato Ibarra MD Potassium [Moles/Vol] 3.0 mmol/L Low 3.7-5.3 [facility] Comment on above: Performed By: #### P TT, PT #### [address] [address] Telehealth Nurse: Tato Ibarra MD Sodium [Moles/Vol] 135 mmol/L Low 136-145 [facility] Comment on above: Performed By: #### P TT, PT #### [address] [address] Telehealth Nurse: Tato Ibarra MD Urea nitrogen [Mass/Vol] 4 mg/dL Low 6-20 [facility] Comment on above: Performed By: #### P TT, PT #### [place] [address] Telehealth Nurse: Tato Ibarra MD CBC with Diffon 01-08-2024 Abs. Basophil 0.00 k/uL Normal 0.0-0.2 [facility] Comment on above: Performed By: #### P TT, PT #### [address] [address] Telehealth Nurse: Tato Ibarra MD Abs.Imm.Granulocyte 0.00 k/uL Normal 0.00-0.30 [facility] Comment on above: Performed By: #### P TT, PT #### [place] [address] Telehealth Nurse: Tato Ibarra MD Abs.Neutrophil (Seg) 7.78 k/uL High 1.8-7.7 [facility] Comment on above: Performed By: #### P TT, PT #### [address] [address] Telehealth Nurse: Tato Ibarra MD Basophils/100 WBC (Bld) 0 % Normal 0-2 [facility] Comment on above: Performed By: #### P TT, PT #### [address] [address] Telehealth Nurse: Tato Ibarra MD Eosinophils (Bld) [#/Vol] 0.00 10*3/uL Normal 0.0-0.4 [facility] Comment on above: Performed By: #### P TT, PT #### [address] [address] Telehealth Nurse: Tato Ibarra MD Eosinophils/100 WBC (Bld) 0 % Low 1-4 [facility] Comment on above: Performed By: #### P TT, PT #### [address] [address] Telehealth Nurse: Tato Ibarra MD Immature granulocytes/100 WBC (Bld) 0 % Normal 0 [facility] Comment on above: Performed By: #### P TT, PT #### [address] [address] Telehealth Nurse: Tato Ibarra MD Lymphocytes (Bld) [#/Vol] 1.15 10*3/uL Normal 1.0-4.8 [facility] Comment on above: Performed By: #### P TT, PT #### [address] [address] Telehealth Nurse: Tato Ibarra MD Lymphocytes/100 WBC (Bld) 12 % Low 24-44 [facility] Comment on above: Performed By: #### P TT, PT #### [address] [address] Telehealth Nurse: Tato Ibarra MD Monocytes (Bld) [#/Vol] 0.67 10*3/uL Normal 0.1-0.8 [facility] Comment on above: Performed By: #### P TT, PT #### [address] [address] Telehealth Nurse: Tato Ibarra MD Monocytes/100 WBC (Bld) 7 % Normal 1-7 [facility] Comment on above: Performed By: #### P TT, PT #### [address] [address] Telehealth Nurse: Tato Ibarra MD Morphology Ritesh (Bld) [Interp] ANISOCYTOSIS PRESENT Normal [facility] Comment on above: Performed By: #### P TT, PT #### [address] [address] Telehealth Nurse: Tato Ibarra MD Neutrophil (Seg) 81 % High 36-66 [facility] Comment on above: Performed By: #### P TT, PT #### [address] [address] Telehealth Nurse: Tato Ibarra MD Erythrocyte distribution width (RBC) [Ratio] 20.6 % High 11.8-14.4 [facility] Comment on above: Performed By: #### P TT, PT #### [address] [address] Telehealth Nurse: Tato Ibarra MD Hematocrit (Bld) [Volume fraction] 27.2 % Low 36.3-47.1 [facility] Comment on above: Performed By: #### P TT, PT #### [address] [address] Telehealth Nurse: Tato Ibarra MD Hemoglobin (Bld) [Mass/Vol] 8.8 g/dL Low 11.9-15.1 [facility] Comment on above: Performed By: #### P TT, PT #### [address] [address] Telehealth Nurse: Tato Ibarra MD MCH (RBC) [Entitic mass] 30.6 pg Normal 25.2-33.5 [facility] Comment on above: Performed By: #### P TT, PT #### [address] [address] Telehealth Nurse: Tato Ibarra MD MCHC (RBC) [Mass/Vol] 32.4 g/dL Normal 28.4-34.8 [facility] Comment on above: Performed By: #### P TT, PT #### [address] [address] Telehealth Nurse: Tato Ibarra MD MCV (RBC) [Entitic vol] 94.4 fL Normal 82.6-102.9 [facility] Comment on above: Performed By: #### P TT, PT #### [address] [address] Telehealth Nurse: Tato Ibarra MD NRBC Automated 0.0 per 100 WBC Normal 0.0 [facility] Comment on above: Performed By: #### P TT, PT #### [address] [address] Telehealth Nurse: Tato Ibarra MD Platelet mean volume (Bld) [Entitic vol] 10.5 fL Normal 8.1-13.5 [facility] Comment on above: Performed By: #### P TT, PT #### [address] [address] Telehealth Nurse: Tato Ibarra MD Platelets (Bld) [#/Vol] 268 10*3/uL Normal 138-453 [facility] Comment on above: Performed By: #### P TT, PT #### [address] [address] Telehealth Nurse: Tato Ibarra MD RBC (Bld) [#/Vol] 2.88 10*6/uL Low 3.95-5.11 [facility] Comment on above: Performed By: #### P TT, PT #### [address] [address] Telehealth Nurse: Tato Ibarra MD WBC (Bld) [#/Vol] 9.6 10*3/uL Normal 3.5-11.3 [facility] Comment on above: Performed By: #### P TT, PT #### [address] [address] Telehealth Nurse: Tato Ibarra MD Calcium, Ionicon 01-08-2024 Calcium [Moles/Vol] 1.12 mmol/L Low 1.13-1.33 [facility] Comment on above: Performed By: #### P TT, PT #### [facility] [employer] [address] [place] [address] Telehealth Nurse: Tato Ibarra MD Hgb/Hcton 01-08-2024 Hematocrit (Bld) [Volume fraction] 24.7 % Low 36.3-47.1 [facility] Comment on above: Performed By: #### O SMO, LD, MG, JESUS, TSHX, LIVP, B12FOL, LACTIC, FT4, BMP #### [facility] [employer] [address] [place] [address] Telehealth Nurse: Tato Ibarra MD Hemoglobin (Bld) [Mass/Vol] 8.0 g/dL Low 11.9-15.1 [facility] Comment on above: Performed By: #### O SMO, LD, MG, JESUS, TSHX, LIVP, B12FOL, LACTIC, FT4, BMP #### [facility] [employer] [address] [place] [address] Telehealth Nurse: Tato Ibarra MD Hematocrit (Bld) [Volume fraction] 27.3 % Low 36.3-47.1 [facility] Comment on above: Performed By: #### P TT, PT #### [facility] [employer] [address] [place] [address] Telehealth Nurse: Tato Ibarra MD Hemoglobin (Bld) [Mass/Vol] 8.6 g/dL Low 11.9-15.1 [facility] Comment on above: Performed By: #### P TT, PT #### [facility] [address] [place] [address] [phone] Telehealth Nurse: Tato Ibarra MD Hematocrit (Bld) [Volume fraction] 26.5 % Low 36.3-47.1 [facility] Comment on above: Performed By: #### O SMO, LD, MG, JESUS, TSHX, LIVP, B12FOL, LACTIC, FT4, BMP #### [facility] [address] [place] [address] [phone] Telehealth Nurse: Tato Ibarra MD Hemoglobin (Bld) [Mass/Vol] 8.1 g/dL Low 11.9-15.1 [facility] Comment on above: Performed By: #### O SMO, LD, MG, JESUS, TSHX, LIVP, B12FOL, LACTIC, FT4, BMP #### [facility] [employer] [address] [place] [address] [phone] Telehealth Nurse: Tato Ibarra MD Hematocrit (Bld) [Volume fraction] 26.0 % Low 36.3-47.1 [facility] Comment on above: Performed By: #### O SMO, LD, MG, JESUS, TSHX, LIVP, B12FOL, LACTIC, FT4, BMP #### [facility] [address] [place] [phone] Telehealth Nurse: Tato Ibarra MD Hemoglobin (Bld) [Mass/Vol] 8.0 g/dL Low 11.9-15.1 [facility] Comment on above: Performed By: #### O SMO, LD, MG, JESUS, TSHX, LIVP, B12FOL, LACTIC, FT4, BMP #### [facility] [address] [place] [address] [phone] Telehealth Nurse: MD Chantel Day (Potassium)on 01-08-2024 Potassium [Moles/Vol] 3.3 mmol/L Low 3.7-5.3 [facility] Comment on above: Performed By: #### P TT, PT #### [facility] [employer] [address] [place] [address] Telehealth Nurse: Tato Ibarra MD Magnesiumon 01-08-2024 Magnesium [Mass/Vol] 1.8 mg/dL Normal 1.6-2.6 [facility] Comment on above: Performed By: #### P TT, PT #### [facility] [employer] [address] [place] [address] Telehealth Nurse: Tato Ibarra MD Troponinon 01-08-2024 Troponin, High Sens 83 ng/L Critically high 0-14 [facility] Comment on above: Result Comment: High Sensitivity Troponin values cannot be compared with other Troponin methodologies. Previous Alert Value Reported Performed By: #### P TT, PT #### [facility] [employer] [address] [place] [phone] Telehealth Nurse: Tato Ibarra MD Troponin, High Sens 84 ng/L Critically high 0-14 [facility] Comment on above: Result Comment: High Sensitivity Troponin values cannot be compared with other Troponin methodologies. Performed By: #### P TT, PT #### [facility] [employer] [address] [place] [phone] Telehealth Nurse: Tato Ibarra MD Troponin, High Sens 42 ng/L High 0-14 [facility] Comment on above: Result Comment: High Sensitivity Troponin values cannot be compared with other Troponin methodologies. Performed By: #### O SMO, LD, MG, JESUS, TSHX, LIVP, B12FOL, LACTIC, FT4, BMP #### [address] [address] Telehealth Nurse: Tato Ibarra MD XR CHEST PORTABLEon 01-08-20 [...] MD 01/08/24 Final result Normal [facility] Basic Metab w/rfx MGon 01-06 Anion gap [Moles/Vol] 8 mmol/L Low 9-16 [facility] Comment on above: Performed By: #### O SMO, LD, MG, JESUS, TSHX, LIVP, B12FOL, LACTIC, FT4, BMP #### [facility] [employer] [address] [place] [phone] Telehealth Nurse: Tato Ibarra MD Calcium [Mass/Vol] 7.5 mg/dL Low 8.6-10.4 [facility] Comment on above: Performed By: #### O SMO, LD, MG, JESUS, TSHX, LIVP, B12FOL, LACTIC, FT4, BMP #### [facility] [employer] [address] [place] [address] [phone] Telehealth Nurse: Tato Ibarra MD Chloride [Moles/Vol] 107 mmol/L Normal 98-107 [facility] Comment on above: Performed By: #### O SMO, LD, MG, JESUS, TSHX, LIVP, B12FOL, LACTIC, FT4, BMP #### [facility] [employer] [address] [place] [phone] Telehealth Nurse: Tato Ibarra MD CO2 [Moles/Vol] 24 mmol/L Normal 20-31 [facility] Comment on above: Performed By: #### O SMO, LD, MG, JESUS, TSHX, LIVP, B12FOL, LACTIC, FT4, BMP #### [facility] [address] [place] [address] [phone] Telehealth Nurse: Tato Ibarra MD Creatinine [Mass/Vol] 0.4 mg/dL Low 0.50-0.90 [facility] Comment on above: Performed By: #### O SMO, LD, MG, JESUS, TSHX, LIVP, B12FOL, LACTIC, FT4, BMP #### [address] [address] Telehealth Nurse: Tato Ibarra MD GFR/1.73 sq M.predicted among non-blacks MDRD (S/P/Bld) [Vol rate/Area] mL/min/{1.73_m2} Normal >60 [facility] Comment on above: Result Comment: These [...] TSHX, LIVP, B12FOL, LACTIC, FT4, BMP #### [facility] [address] [place] [address] Telehealth Nurse: Tato Ibarra MD Glucose [Mass/Vol] 88 mg/dL Normal 74-99 [facility] Comment on above: Performed By: #### O SMO, LD, MG, JESUS, TSHX, LIVP, B12FOL, LACTIC, FT4, BMP #### [address] [address] Telehealth Nurse: Tato Ibarra MD Potassium [Moles/Vol] 3.2 mmol/L Low 3.7-5.3 [facility] Comment on above: Result Comment: SPEC IMEN SLIGHTLY HEMOLYZED, RESULTS MAY BE ADVERSELY AFFECTED. Performed By: #### O SMO, LD, MG, JESUS, TSHX, LIVP, B12FOL, LACTIC, FT4, BMP #### [address] [address] Telehealth Nurse: Tato Ibarra MD Sodium [Moles/Vol] 139 mmol/L Normal 136-145 [facility] Comment on above: Performed By: #### O SMO, LD, MG, JESUS, TSHX, LIVP, B12FOL, LACTIC, FT4, BMP #### [address] [address] Telehealth Nurse: Tato Ibarra MD Urea nitrogen [Mass/Vol] 8 mg/dL Normal 6-20 [facility] Comment on above: Performed By: #### O SMO, LD, MG, JESUS, TSHX, LIVP, B12FOL, LACTIC, FT4, BMP #### [place] [address] Telehealth Nurse: Tato Ibarra MD CBC with Diffon 01-07-2024 Abs. Basophil 0.06 k/uL Normal 0.00-0.20 [facility] Comment on above: Performed By: #### O SMO, LD, MG, JESUS, TSHX, LIVP, B12FOL, LACTIC, FT4, BMP #### [facility] [employer] [address] [place] [address] Telehealth Nurse: Tato Ibarra MD Abs.Imm.Granulocyte 0.00 k/uL Normal 0.00-0.30 [facility] Comment on above: Performed By: #### O SMO, LD, MG, JESUS, TSHX, LIVP, B12FOL, LACTIC, FT4, BMP #### [facility] [employer] [address] [place] [address] [phone] Telehealth Nurse: Tato Ibarra MD Abs.Neutrophil (Seg) 3.94 k/uL Normal 1.50-8.10 [facility] Comment on above: Performed By: #### O SMO, LD, MG, JESUS, TSHX, LIVP, B12FOL, LACTIC, FT4, BMP #### [address] [address] Telehealth Nurse: Tato Ibarra MD Basophils/100 WBC (Bld) 1 % Normal 0-2 [facility] Comment on above: Performed By: #### O SMO, LD, MG, JESUS, TSHX, LIVP, B12FOL, LACTIC, FT4, BMP #### [place] [address] Telehealth Nurse: Tato Ibarra MD Eosinophils (Bld) [#/Vol] 0.12 10*3/uL Normal 0.00-0.44 [facility] Comment on above: Performed By: #### O SMO, LD, MG, JESUS, TSHX, LIVP, B12FOL, LACTIC, FT4, BMP #### [facility] [employer] [address] [place] [address] Telehealth Nurse: Tato Ibarra MD Eosinophils/100 WBC (Bld) 2 % Normal 1-4 [facility] Comment on above: Performed By: #### O SMO, LD, MG, JESUS, TSHX, LIVP, B12FOL, LACTIC, FT4, BMP #### [facility] [employer] [address] [place] [address] Telehealth Nurse: Tato Ibarra MD Immature granulocytes/100 WBC (Bld) 0 % Normal 0 [facility] Comment on above: Performed By: #### O SMO, LD, MG, JESUS, TSHX, LIVP, B12FOL, LACTIC, FT4, BMP #### [facility] [employer] [address] [place] [address] Telehealth Nurse: Tato Ibarra MD Lymphocytes (Bld) [#/Vol] 1.22 10*3/uL Normal 1.10-3.70 [facility] Comment on above: Performed By: #### O SMO, LD, MG, JESUS, TSHX, LIVP, B12FOL, LACTIC, FT4, BMP #### [address] [address] Telehealth Nurse: Tato Ibarra MD Lymphocytes/100 WBC (Bld) 21 % Low 24-43 [facility] Comment on above: Performed By: #### O SMO, LD, MG, JESUS, TSHX, LIVP, B12FOL, LACTIC, FT4, BMP #### [address] [address] Telehealth Nurse: Tato Ibarra MD Monocytes (Bld) [#/Vol] 0.46 10*3/uL Normal 0.10-1.20 [facility] Comment on above: Performed By: #### O SMO, LD, MG, JESUS, TSHX, LIVP, B12FOL, LACTIC, FT4, BMP #### [address] [address] Telehealth Nurse: Tato Iabrra MD Monocytes/100 WBC (Bld) 8 % Normal 3-12 [facility] Comment on above: Performed By: #### O SMO, LD, MG, JESUS, TSHX, LIVP, B12FOL, LACTIC, FT4, BMP #### [address] [address] Telehealth Nurse: Tato Ibarra MD Morphology Ritesh (Bld) [Interp] ANISOCYTOSIS PRESENT Normal [facility] Comment on above: Performed By: #### O SMO, LD, MG, JESUS, TSHX, LIVP, B12FOL, LACTIC, FT4, BMP #### [address] [address] Telehealth Nurse: Tato Ibarra MD Neutrophil (Seg) 68 % High 36-65 [facility] Comment on above: Performed By: #### O SMO, LD, MG, JESUS, TSHX, LIVP, B12FOL, LACTIC, FT4, BMP #### [facility] [address] [place] [address] Telehealth Nurse: Tato Ibarra MD Erythrocyte distribution width (RBC) [Ratio] 22.0 % High 11.8-14.4 [facility] Comment on above: Performed By: #### O SMO, LD, MG, JESUS, TSHX, LIVP, B12FOL, LACTIC, FT4, BMP #### [facility] [address] [place] [address] Telehealth Nurse: Tato Ibarra MD Hematocrit (Bld) [Volume fraction] 23.2 % Low 36.3-47.1 [facility] Comment on above: Performed By: #### O SMO, LD, MG, JESUS, TSHX, LIVP, B12FOL, LACTIC, FT4, BMP #### [facility] [address] [place] [address] Telehealth Nurse: Tato Ibarra MD Hemoglobin (Bld) [Mass/Vol] 7.2 g/dL Low 11.9-15.1 [facility] Comment on above: Performed By: #### O SMO, LD, MG, JESUS, TSHX, LIVP, B12FOL, LACTIC, FT4, BMP #### [facility] [address] [place] [address] Telehealth Nurse: Tato Ibarra MD MCH (RBC) [Entitic mass] 29.4 pg Normal 25.2-33.5 [facility] Comment on above: Performed By: #### O SMO, LD, MG, JESUS, TSHX, LIVP, B12FOL, LACTIC, FT4, BMP #### [facility] [address] [place] [address] [phone] Telehealth Nurse: Tato Ibarra MD MCHC (RBC) [Mass/Vol] 31.0 g/dL Normal 28.4-34.8 [facility] Comment on above: Performed By: #### O SMO, LD, MG, JESUS, TSHX, LIVP, B12FOL, LACTIC, FT4, BMP #### [address] [address] Telehealth Nurse: Tato Ibarra MD MCV (RBC) [Entitic vol] 94.7 fL Normal 82.6-102.9 [facility] Comment on above: Performed By: #### O SMO, LD, MG, JESUS, TSHX, LIVP, B12FOL, LACTIC, FT4, BMP #### [address] [address] Telehealth Nurse: Tato Ibarra MD NRBC Automated 0.0 per 100 WBC Normal 0.0 [facility] Comment on above: Performed By: #### O SMO, LD, MG, JESUS, TSHX, LIVP, B12FOL, LACTIC, FT4, BMP #### [address] [address] Telehealth Nurse: Tato Ibarra MD Platelet mean volume (Bld) [Entitic vol] 11.4 fL Normal 8.1-13.5 [facility] Comment on above: Performed By: #### O SMO, LD, MG, JESUS, TSHX, LIVP, B12FOL, LACTIC, FT4, BMP #### [facility] [employer] [address] [place] [address] Telehealth Nurse: Tato Ibarra MD Platelets (Bld) [#/Vol] 197 10*3/uL Normal 138-453 [facility] Comment on above: Performed By: #### O SMO, LD, MG, JESUS, TSHX, LIVP, B12FOL, LACTIC, FT4, BMP #### [address] [address] Telehealth Nurse: Tato Ibarra MD RBC (Bld) [#/Vol] 2.45 10*6/uL Low 3.95-5.11 [facility] Comment on above: Performed By: #### O SMO, LD, MG, JESUS, TSHX, LIVP, B12FOL, LACTIC, FT4, BMP #### [facility] [employer] [address] [place] [address] [phone] Telehealth Nurse: Tato Ibarra MD WBC (Bld) [#/Vol] 5.8 10*3/uL Normal 3.5-11.3 [facility] Comment on above: Performed By: #### O SMO, LD, MG, JESUS, TSHX, LIVP, B12FOL, LACTIC, FT4, BMP #### [facility] [employer] [address] [place] [phone] Telehealth Nurse: Tato Ibarra MD Calcium, Ionicon 01-07-2024 Calcium [Moles/Vol] 1.11 mmol/L Low 1.13-1.33 [facility] Comment on above: Performed By: #### O SMO, LD, MG, JESUS, TSHX, LIVP, B12FOL, LACTIC, FT4, BMP #### [facility] [employer] [address] [place] [address] [phone] Telehealth Nurse: Tato Ibarra MD Glucose,Whole Bloodon 2023 Glucose [Mass/Vol] 97 mg/dL Normal 65-105 [facility] Glucose [Mass/Vol] 100 mg/dL Normal 65-105 [facility] Glucose [Mass/Vol] 89 mg/dL Normal 65-105 [facility] Hgb/Hcton 01-07-2024 Hematocrit (Bld) [Volume fraction] 21.9 % Low 36.3-47.1 [facility] Comment on above: Performed By: #### O SMO, LD, MG, JESUS, TSHX, LIVP, B12FOL, LACTIC, FT4, BMP #### [facility] [employer] [address] [place] [address] [phone] Telehealth Nurse: Tato Ibarra MD Hemoglobin (Bld) [Mass/Vol] 7.1 g/dL Low 11.9-15.1 [facility] Comment on above: Performed By: #### O SMO, LD, MG, JESUS, TSHX, LIVP, B12FOL, LACTIC, FT4, BMP #### [facility] [address] [place] [address] [phone] Telehealth Nurse: Tato Ibarra MD Hematocrit (Bld) [Volume fraction] 26.5 % Low 36.3-47.1 [facility] Comment on above: Performed By: #### O SMO, LD, MG, JESUS, TSHX, LIVP, B12FOL, LACTIC, FT4, BMP #### [facility] [employer] [address] [place] [address] [phone] Telehealth Nurse: Tato Ibarra MD Hemoglobin (Bld) [Mass/Vol] 8.2 g/dL Low 11.9-15.1 [facility] Comment on above: Performed By: #### O SMO, LD, MG, JESUS, TSHX, LIVP, B12FOL, LACTIC, FT4, BMP #### [facility] [employer] [address] [place] [address] Telehealth Nurse: Tato Ibarra MD K (Potassium)on 01-07-2024 Potassium [Moles/Vol] 3.7 mmol/L Normal 3.7-5.3 [facility] Comment on above: Performed By: #### P TT, PT #### [facility] [employer] [address] [place] [address] [phone] Telehealth Nurse: Tato Ibarra MD MRSA, DNA, Nasalon MRSA, DNA, Nasal Negative Normal NEG [facility] Comment on above: Result Comment: [...] TSHX, LIVP, B12FOL, LACTIC, FT4, BMP #### [facility] [address] [place] [address] [phone] Telehealth Nurse: Tato Ibarra MD Magnesiumon 01-07-2024 Magnesium [Mass/Vol] 2.1 mg/dL Normal 1.6-2.6 [facility] Comment on above: Performed By: #### O SMO, LD, MG, JESUS, TSHX, LIVP, B12FOL, LACTIC, FT4, BMP #### [address] [phone] Telehealth Nurse: Tato Ibarra MD Basic Metab w/rfx MGon 01-05 Anion gap [Moles/Vol] 7 mmol/L Low 9-16 [facility] Comment on above: Performed By: #### O SMO, LD, MG, JESUS, TSHX, LIVP, B12FOL, LACTIC, FT4, BMP #### [facility] [employer] [address] [place] [address] Telehealth Nurse: Tato Ibarra MD Calcium [Mass/Vol] 7.2 mg/dL Low 8.6-10.4 [facility] Comment on above: Performed By: #### O SMO, LD, MG, JESUS, TSHX, LIVP, B12FOL, LACTIC, FT4, BMP #### [facility] [employer] [address] [place] [address] Telehealth Nurse: Tato Ibarra MD Chloride [Moles/Vol] 111 mmol/L High 98-107 [facility] Comment on above: Performed By: #### O SMO, LD, MG, JESUS, TSHX, LIVP, B12FOL, LACTIC, FT4, BMP #### [facility] [address] [place] [address] Telehealth Nurse: Tato Ibarra MD CO2 [Moles/Vol] 24 mmol/L Normal 20-31 [facility] Comment on above: Performed By: #### O SMO, LD, MG, JESUS, TSHX, LIVP, B12FOL, LACTIC, FT4, BMP #### [address] [phone] Telehealth Nurse: Tato Ibarra MD Creatinine [Mass/Vol] 0.4 mg/dL Low 0.50-0.90 [facility] Comment on above: Performed By: #### O SMO, LD, MG, JESUS, TSHX, LIVP, B12FOL, LACTIC, FT4, BMP #### [address] [phone] Telehealth Nurse: Tato Ibarra MD GFR/1.73 sq M.predicted among non-blacks MDRD (S/P/Bld) [Vol rate/Area] mL/min/{1.73_m2} Normal >60 [facility] Comment on above: Result Comment: These [...] TSHX, LIVP, B12FOL, LACTIC, FT4, BMP #### [address] [address] Telehealth Nurse: Tato Ibarra MD Glucose [Mass/Vol] 103 mg/dL High 74-99 [facility] Comment on above: Performed By: #### O SMO, LD, MG, JESUS, TSHX, LIVP, B12FOL, LACTIC, FT4, BMP #### [address] [address] Telehealth Nurse: Tato Ibarra MD Potassium [Moles/Vol] 3.7 mmol/L Normal 3.7-5.3 [facility] Comment on above: Performed By: #### O SMO, LD, MG, JESUS, TSHX, LIVP, B12FOL, LACTIC, FT4, BMP #### [address] [address] Telehealth Nurse: Tato Ibarra MD Sodium [Moles/Vol] 142 mmol/L Normal 136-145 [facility] Comment on above: Performed By: #### O SMO, LD, MG, JESUS, TSHX, LIVP, B12FOL, LACTIC, FT4, BMP #### [place] [address] Telehealth Nurse: Tato Ibarra MD Urea nitrogen [Mass/Vol] 14 mg/dL Normal 6-20 [facility] Comment on above: Performed By: #### O SMO, LD, MG, JESUS, TSHX, LIVP, B12FOL, LACTIC, FT4, BMP #### [place] [address] Telehealth Nurse: Tato Ibarra MD Basophils Auto (Bld) [#/Vol] on 01-06-2024 Basophils (Bld) [#/Vol] 0.0 10 3/uL 0.0-0.1 [facility] Basophils/100 WBC Auto (Bld) on 01-06-2024 Basophils/100 WBC (Bld) 0.5 % 0.2-2.0 [facility] CBC with Diffon 01-06-2024 Abs. Basophil <0.03 Normal 0.00-0.20 [facility] Comment on above: Performed By: #### P TT, PT #### [place] [address] Telehealth Nurse: Tato Ibarra MD Abs.Imm.Granulocyte 0.04 k/uL Normal 0.00-0.30 [facility] Comment on above: Performed By: #### P TT, PT #### [address] [place] [address] Telehealth Nurse: Tato Ibarra MD Abs.Neutrophil (Seg) 5.60 k/uL Normal 1.50-8.10 [facility] Comment on above: Performed By: #### P TT, PT #### [address] [address] Telehealth Nurse: Tato Ibarra MD Basophils/100 WBC (Bld) 0 % Normal 0-2 [facility] Comment on above: Performed By: #### P TT, PT #### [address] [address] Telehealth Nurse: Tato Ibarra MD Eosinophils (Bld) [#/Vol] 0.03 10*3/uL Normal 0.00-0.44 [facility] Comment on above: Performed By: #### P TT, PT #### [address] [address] Telehealth Nurse: Tato Ibarra MD Eosinophils/100 WBC (Bld) 0 % Low 1-4 [facility] Comment on above: Performed By: #### P TT, PT #### [address] [address] Telehealth Nurse: Tato Ibarra MD Erythrocyte distribution width (RBC) [Ratio] 19.9 % High 11.8-14.4 [facility] Comment on above: Performed By: #### P TT, PT #### [address] [address] Telehealth Nurse: Tato Ibarra MD Hematocrit (Bld) [Volume fraction] 22.4 % Low 36.3-47.1 [facility] Comment on above: Performed By: #### P TT, PT #### [address] [address] Telehealth Nurse: Tato Ibarra MD Hemoglobin (Bld) [Mass/Vol] 6.9 g/dL Critically low 11.9-15.1 [facility] Comment on above: Performed By: #### P TT, PT #### [address] [address] Telehealth Nurse: Tato Ibarra MD Immature granulocytes/100 WBC (Bld) 1 % High 0 [facility] Comment on above: Performed By: #### P TT, PT #### [address] [address] Telehealth Nurse: Tato Ibarra MD Lymphocytes (Bld) [#/Vol] 0.99 10*3/uL Low 1.10-3.70 [facility] Comment on above: Performed By: #### P TT, PT #### [address] [address] Telehealth Nurse: Tato Ibarra MD Lymphocytes/100 WBC (Bld) 14 % Low 24-43 [facility] Comment on above: Performed By: #### P TT, PT #### [address] [address] Telehealth Nurse: Tato Ibarra MD MCH (RBC) [Entitic mass] 30.3 pg Normal 25.2-33.5 [facility] Comment on above: Performed By: #### P TT, PT #### [address] [address] Telehealth Nurse: Tato Ibarra MD MCHC (RBC) [Mass/Vol] 30.8 g/dL Normal 28.4-34.8 [facility] Comment on above: Performed By: #### P TT, PT #### [address] [address] Telehealth Nurse: Tato Ibarra MD MCV (RBC) [Entitic vol] 98.2 fL Normal 82.6-102.9 [facility] Comment on above: Performed By: #### P TT, PT #### [address] [address] Telehealth Nurse: Tato Ibarra MD Monocytes (Bld) [#/Vol] 0.53 10*3/uL Normal 0.10-1.20 [facility] Comment on above: Performed By: #### P TT, PT #### [address] [address] Telehealth Nurse: Tato Ibarra MD Monocytes/100 WBC (Bld) 7 % Normal 3-12 [facility] Comment on above: Performed By: #### P TT, PT #### [address] [address] Telehealth Nurse: Tato Ibarra MD Neutrophil (Seg) 78 % High 36-65 [facility] Comment on above: Performed By: #### P TT, PT #### [address] [address] Telehealth Nurse: Tato Ibarra MD NRBC Automated 0.0 per 100 WBC Normal 0.0 [facility] Comment on above: Performed By: #### P TT, PT #### [address] [address] Telehealth Nurse: Tato Ibarra MD Platelet mean volume (Bld) [Entitic vol] 10.6 fL Normal 8.1-13.5 [facility] Comment on above: Performed By: #### P TT, PT #### [address] [address] Telehealth Nurse: Tato Ibarra MD Platelets (Bld) [#/Vol] 195 10*3/uL Normal 138-453 [facility] Comment on above: Performed By: #### P TT, PT #### [address] [phone] Telehealth Nurse: Tato Ibarra MD RBC (Bld) [#/Vol] 2.28 10*6/uL Low 3.95-5.11 [facility] Comment on above: Performed By: #### P TT, PT #### [facility] [address] [place] [address] Telehealth Nurse: Tato Ibarra MD RBC morphology finding Nom (Bld) ANISOCYTOSIS PRESENT Normal [facility] Comment on above: Performed By: #### P TT, PT #### [facility] [address] [place] [address] Telehealth Nurse: Tato Ibarra MD WBC (Bld) [#/Vol] 7.2 10*3/uL Normal 3.5-11.3 [facility] Comment on above: Performed By: #### P TT, PT #### [facility] [employer] [address] [place] [address] Telehealth Nurse: Tato Ibarra MD CT CHEST WO CONTRASTon [...] MD 01/06/24 Final result Normal [facility] CTA ABDOMEN PELVIS W WO CONT [...] MD 01/06/24 Final result Normal [facility] Calcium, Ionicon 01-06-2024 Calcium [Moles/Vol] 1.07 mmol/L Low 1.13-1.33 [facility] Comment on above: Performed By: #### O SMO, LD, MG, JESUS, TSHX, LIVP, B12FOL, LACTIC, FT4, BMP #### [employer] [address] [place], [place] [phone] Telehealth Nurse: Tato Ibarra MD Eosinophils/100 WBC Auto (Bl d)on 01-06-2024 Eosinophils/100 WBC (Bld) 1.2 % 0.9-7.0 [facility] Erythrocyte distribution wid th Auto (RBC) [Ratio]on 01-06-2024 Erythrocyte distribution width (RBC) [Ratio] 19.2 % High 11.0-15.0 [facility] Estimated glomerular filtrat ion rate (GFR) non- Americanon 01-06-2024 GFR/1.73 sq M.predicted among non-blacks MDRD (S/P/Bld) [Vol rate/Area] mL/min/{1.73_m2} >=60 [facility] Globulin Calc (S) [Mass/Vol] on 01-06-2024 Globulin (S) [Mass/Vol] 2.1 g/dL [facility] Hematocrit Auto (Bld) [Volum e fraction]on 01-06-2024 Hematocrit (Bld) [Volume fraction] 19.1 % Low 36.0-48.0 [facility] Comment on above: RESULTS CALLED TO RACHEL AVALOS RN Hemoglobin [Mass/volume] in Bloodon 01-06-2024 Hemoglobin (Bld) [Mass/Vol] 6.0 g/dL Low 12.0-16.0 [facility] Comment on above: RESULTS CALLED TO RACHEL AVALOS RN Hemoglobin.gastrointestinal [Presence] in Stoolon 01-06-2024 Hemoglobin.gastroint estinal Ql (Stl) Positive Abnormal [facility] Hgb/Hcton 01-06-2024 Hematocrit (Bld) [Volume fraction] 23.4 % Low 36.3-47.1 [facility] Comment on above: Performed By: #### O SMO, LD, MG, JESUS, TSHX, LIVP, B12FOL, LACTIC, FT4, BMP #### [employer] [address] [place] [address] Telehealth Nurse: Tato Ibarra MD Hemoglobin (Bld) [Mass/Vol] 7.5 g/dL Low 11.9-15.1 [facility] Comment on above: Performed By: #### O SMO, LD, MG, JESUS, TSHX, LIVP, B12FOL, LACTIC, FT4, BMP #### [employer] [facility] [place], [place] [phone] Telehealth Nurse: Tato Ibarra MD Hematocrit (Bld) [Volume fraction] 23.9 % Low 36.3-47.1 [facility] Comment on above: Performed By: #### O SMO, LD, MG, JESUS, TSHX, LIVP, B12FOL, LACTIC, FT4, BMP #### [facility] [place], [place] [phone] Telehealth Nurse: Tato Ibarra MD Hemoglobin (Bld) [Mass/Vol] 7.8 g/dL Low 11.9-15.1 [facility] Comment on above: Performed By: #### O SMO, LD, MG, JESUS, TSHX, LIVP, B12FOL, LACTIC, FT4, BMP #### [facility] [address] [place] [address] Telehealth Nurse: Tato Ibarra MD Laboratory - Chemistry and C hemistry - challengeon 01-06-2024 Albumin [Mass/Vol] 1.6 g/dL Low 3.4-5.0 [facility] ALP [Catalytic activity/Vol] 92 U/L 46-116 [facility] ALT [Catalytic activity/Vol] 19 U/L 14-59 [facility] AST [Catalytic activity/Vol] 34 U/L 15-37 [facility] Bilirubin [Mass/Vol] 0.3 mg/dL 0.2-1.0 [facility] Bilirubin.direct [Mass/Vol] 0.1 mg/dL 0.0-0.2 [facility] Calcium [Mass/Vol] 7.8 mg/dL Low 8.5-10.1 [facility] Chloride [Moles/Vol] 109 mmol/L High 98-107 [facility] CO2 [Moles/Vol] 28.5 mmol/L 21.0-32.0 [facility] Creatinine [Mass/Vol] 0.63 mg/dL 0.55-1.02 [facility] GFR/1.73 sq M.predicted MDRD (S/P/Bld) [Vol rate/Area] mL/min/{1.73_m2} >=60 [facility] Glucose [Mass/Vol] 106 mg/dL 74-106 [facility] Potassium [Moles/Vol] 3.9 mmol/L 3.5-5.1 [facility] Protein [Mass/Vol] 3.7 g/dL Low 6.4-8.2 [facility] Sodium [Moles/Vol] 142 mmol/L 136-145 [facility] Urea nitrogen [Mass/Vol] 12.0 mg/dL 7.0-18.0 [facility] Urea nitrogen/Creatinine [Mass ratio] 19.0 mg/mg [facility] Laboratory - Hematology and Cell countson 01-06-2024 Immature granulocytes/100 WBC (Bld) 0.5 % 0.0-0.5 [facility] Lactic Acidon 01-06-2024 Lactic Acid,Whole Bl 1.4 mmol/L Normal 0.7-2.1 [facility] Comment on above: Performed By: #### O SMO, LD, MG, JESUS, TSHX, LIVP, B12FOL, LACTIC, FT4, BMP #### [facility] [employer] [address] [place] [phone] Telehealth Nurse: Tato Ibarra MD Leukocytes [#/volume] correc patty for nucleated erythrocytes in Blood by Automated counon 01-06-2024 WBC corrected for nucl RBC Auto (Bld) [#/Vol] 7.8 10 3/uL 4.0-11.0 [facility] Liver Profileon 01-06-2024 Albumin [Mass/Vol] 2.4 g/dL Low 3.5-5.2 [facility] Comment on above: Performed By: #### O SMO, LD, MG, JESUS, TSHX, LIVP, B12FOL, LACTIC, FT4, BMP #### [address] [address] Telehealth Nurse: Tato Ibarra MD Albumin/Glob Ratio 2.0 Normal 1.0-2.5 [facility] Comment on above: Performed By: #### O SMO, LD, MG, JESUS, TSHX, LIVP, B12FOL, LACTIC, FT4, BMP #### [address] [address] Telehealth Nurse: Tato Ibarra MD Alkaline Phos 87 U/L Normal 35-104 [facility] Comment on above: Performed By: #### O SMO, LD, MG, JESUS, TSHX, LIVP, B12FOL, LACTIC, FT4, BMP #### [address] [address] Telehealth Nurse: Tato Ibarra MD ALT [Catalytic activity/Vol] 12 U/L Normal 10-35 [facility] Comment on above: Performed By: #### O SMO, LD, MG, JESUS, TSHX, LIVP, B12FOL, LACTIC, FT4, BMP #### [address] [address] Telehealth Nurse: Tato Ibarra MD AST [Catalytic activity/Vol] 30 U/L Normal 10-35 [facility] Comment on above: Performed By: #### O SMO, LD, MG, JESUS, TSHX, LIVP, B12FOL, LACTIC, FT4, BMP #### [address] [address] Telehealth Nurse: Tato Ibarra MD Bilirubin [Mass/Vol] 0.4 mg/dL Normal 0.00-1.20 [facility] Comment on above: Performed By: #### O SMO, LD, MG, JESUS, TSHX, LIVP, B12FOL, LACTIC, FT4, BMP #### [address] [phone] Telehealth Nurse: Tato Ibarra MD Bilirubin, Indirect 0.2 mg/dL Normal 0.0-1.0 [facility] Comment on above: Performed By: #### O SMO, LD, MG, JESUS, TSHX, LIVP, B12FOL, LACTIC, FT4, BMP #### [facility] [address] [place] [address] [phone] Telehealth Nurse: Tato Ibarra MD Bilirubin.indirect [Mass/Vol] 0.2 mg/dL Normal 0.0-0.2 [facility] Comment on above: Performed By: #### O SMO, LD, MG, JESUS, TSHX, LIVP, B12FOL, LACTIC, FT4, BMP #### [facility] [employer] [address] [place] [address] [phone] Telehealth Nurse: Tato Ibarra MD Globulin (S) [Mass/Vol] 1.4 g/dL Normal [facility] Comment on above: Performed By: #### O SMO, LD, MG, JESUS, TSHX, LIVP, B12FOL, LACTIC, FT4, BMP #### [facility] [address] [place] [phone] Telehealth Nurse: Tato Ibarra MD Protein [Mass/Vol] 3.8 g/dL Low 6.6-8.7 [facility] Comment on above: Performed By: #### O SMO, LD, MG, JESUS, TSHX, LIVP, B12FOL, LACTIC, FT4, BMP #### [facility] [address] [place] [address] [phone] Telehealth Nurse: Tato Ibarra MD Lymphocytes Auto (Bld) [#/Vo l]on 01-06-2024 Lymphocytes (Bld) [#/Vol] 1.1 10 3/uL Low 1.2-3.8 [facility] Lymphocytes/100 WBC Auto (Bl d)on 01-06-2024 Lymphocytes/100 WBC (Bld) 13.6 % Low 20.5-60.0 [facility] MCH Auto (RBC) [Entitic mass ]on 01-06-2024 MCH (RBC) [Entitic mass] 30.9 pg 26.7-34.0 [facility] MCHC Auto (RBC) [Mass/Vol]on 01-06-2024 MCHC (RBC) [Mass/Vol] 31.4 g/dL 29.9-35.2 [facility] MCV Auto (RBC) [Entitic vol] on 01-06-2024 MCV (RBC) [Entitic vol] 98.5 fL 81.0-99.0 [facility] MRSA, DNA, Nasalon Specimen Description .NASAL SWAB Normal [facility] Comment on above: Performed By: #### O SMO, LD, MG, JESUS, TSHX, LIVP, B12FOL, LACTIC, FT4, BMP #### [facility] [address] [place] [phone] Telehealth Nurse: Tato Ibarra MD Magnesiumon 01-06-2024 Magnesium [Mass/Vol] 1.9 mg/dL Normal 1.6-2.6 [facility] Comment on above: Performed By: #### O SMO, LD, MG, JESUS, TSHX, LIVP, B12FOL, LACTIC, FT4, BMP #### [facility] [address] [place] [phone] Telehealth Nurse: Tato Ibarra MD Monocytes Auto (Bld) [#/Vol] on 01-06-2024 Monocytes (Bld) [#/Vol] 0.4 10 3/uL 0.3-0.8 [facility] Monocytes/100 WBC Auto (Bld) on 01-06-2024 Monocytes/100 WBC (Bld) 5.6 % 1.7-12.0 [facility] Neutrophils Auto (Bld) [#/Vo l]on 01-06-2024 Neutrophils (Bld) [#/Vol] 6.1 10 3/uL 1.4-6.5 [facility] Neutrophils/100 WBC Auto (Bl d)on 01-06-2024 Neutrophils/100 WBC (Bld) 78.6 % High 43.0-75.0 [facility] No Panel Informationon 01-05 Eosinophils # (Auto) 0.1 10 3/uL 0.0-0.7 [facility] Immature Granulocyte # (Auto) 0.04 10 3/uL High 0.00-0.03 [facility] PTon 01-06-2024 INR Coag (PPP) [Relative time] 1.1 {INR} Normal [facility] Comment on above: Result Comment: Therapeutic Range: Moderate Anticoagulant Intensity: INR = 2.0-3.0 High Anticoagulant Intensity: INR = 2.5-3.5 Performed By: #### O SMO, LD, MG, JESUS, TSHX, LIVP, B12FOL, LACTIC, FT4, BMP #### [employer] [address] [place] [phone] Telehealth Nurse: Taot Ibarra MD PT Coag (PPP) [Time] 13.6 s Normal 11.7-14.9 [facility] Comment on above: Performed By: #### O SMO, LD, MG, JESUS, TSHX, LIVP, B12FOL, LACTIC, FT4, BMP #### [facility] [employer] [address] [place] [phone] Telehealth Nurse: Tato Ibarra MD Platelet mean volume Auto (B ld) [Entitic vol]on 01-06-2024 Platelet mean volume (Bld) [Entitic vol] 10.6 fL 9.5-13.5 [facility] Platelets Auto (Bld) [#/Vol] on 01-06-2024 Platelets (Bld) [#/Vol] 261 10 3/uL 150-450 [facility] RBC Auto (Bld) [#/Vol]on RBC (Bld) [#/Vol] 1.94 10 6/uL Low 4.20-5.40 [facility] Serum or plasma albumin/glob ulin mass ratioon 01-06-2024 Albumin/Globulin [Mass ratio] 0.8 {ratio} [facility] Serum or plasma anion gap de terminationon 01-06-2024 Anion gap [Moles/Vol] 8.4 mmol/L [facility] Troponinon 01-06-2024 Troponin, High Sens 9 ng/L Normal 0-14 [facility] Comment on above: Result Comment: High Sensitivity Troponin values cannot be compared with other Troponin methodologies. Performed By: #### P TT, PT #### [employer] [address] [place] [address] [phone] Telehealth Nurse: Tato Ibarra MD Troponin, High Sens 9 ng/L Normal 0-14 [facility] Comment on above: Result Comment: High Sensitivity Troponin values cannot be compared with other Troponin methodologies. Performed By: #### O SMO, LD, MG, JESUS, TSHX, LIVP, B12FOL, LACTIC, FT4, BMP #### [employer] [address] [place] [address] [phone] Telehealth Nurse: Tato Ibarra MD Troponin, High Sens 8 ng/L Normal 0-14 [facility] Comment on above: Result Comment: High Sensitivity Troponin values cannot be compared with other Troponin methodologies. Performed By: #### O SMO, LD, MG, JESUS, TSHX, LIVP, B12FOL, LACTIC, FT4, BMP #### [employer] [address] [place] [address] [phone] Telehealth Nurse: Tato Ibarra MD Basic Metabolic Panelon 12-24 Anion gap [Moles/Vol] 9 mmol/L 9 - 16 mmol/L [facility] Calcium [Mass/Vol] 8.0 mg/dL Low 8.6 - 10.4 mg/dL [employer] Chloride [Moles/Vol] 103 mmol/L 98 - 107 mmol/L [employer] CO2 [Moles/Vol] 27 mmol/L 20 - 31 mmol/L [facility] [employer] [facility] Creatinine [Mass/Vol] 0.3 mg/dL Low 0.50 - 0.90 mg/dL [facility] Read[employer] Est, Glom Filt Rate - PINF [facility] [employer] [facility] [employer] Comment on above: These results are not [...] [Mass/Vol] 85 mg/dL 74 - 99 mg/dL [facility] Interpretation and review of laboratory results Abnormal [facility] Potassium [Moles/Vol] 2.8 mmol/L Critically low 3.7 - 5.3 mmol/L [facility] Sodium [Moles/Vol] 139 mmol/L 136 - 145 mmol/L [facility] Urea nitrogen [Mass/Vol] 3 mg/dL Low 6 - 20 mg/dL [facility] Basic Metabolic Profon 01-04 Anion gap [Moles/Vol] 9 mmol/L Normal 9-16 [facility] Comment on above: Performed By: #### O SMO, LD, MG, JESUS, TSHX, LIVP, B12FOL, LACTIC, FT4, BMP #### [facility] [employer] [address] [place] [address] [phone] Telehealth Nurse: Tato Ibarra MD Calcium [Mass/Vol] 8.0 mg/dL Low 8.6-10.4 [facility] Comment on above: Performed By: #### O SMO, LD, MG, JESUS, TSHX, LIVP, B12FOL, LACTIC, FT4, BMP #### [facility] [place], [place] [phone] Telehealth Nurse: Tato Ibarra MD Chloride [Moles/Vol] 103 mmol/L Normal 98-107 [facility] Comment on above: Performed By: #### O SMO, LD, MG, JESUS, TSHX, LIVP, B12FOL, LACTIC, FT4, BMP #### [facility] [address] [place] [address] [phone] Telehealth Nurse: Tato Ibarra MD CO2 [Moles/Vol] 27 mmol/L Normal 20-31 [facility] Comment on above: Performed By: #### O SMO, LD, MG, JESUS, TSHX, LIVP, B12FOL, LACTIC, FT4, BMP #### [address] [address] Telehealth Nurse: Tato Ibarra MD Creatinine [Mass/Vol] 0.3 mg/dL Low 0.50-0.90 [facility] Comment on above: Performed By: #### O SMO, LD, MG, JESUS, TSHX, LIVP, B12FOL, LACTIC, FT4, BMP #### [address] [address] Telehealth Nurse: Tato Ibarra MD GFR/1.73 sq M.predicted among non-blacks MDRD (S/P/Bld) [Vol rate/Area] mL/min/{1.73_m2} Normal >60 [facility] Comment on above: Result Comment: These [...] TSHX, LIVP, B12FOL, LACTIC, FT4, BMP #### [facility] [address] [place] [phone] Telehealth Nurse: Tato Ibarra MD Glucose [Mass/Vol] 85 mg/dL Normal 74-99 [facility] Comment on above: Performed By: #### O SMO, LD, MG, JESUS, TSHX, LIVP, B12FOL, LACTIC, FT4, BMP #### [facility] [address] [place] [phone] Telehealth Nurse: Tato Ibarra MD Potassium [Moles/Vol] 2.8 mmol/L Critically low 3.7-5.3 [facility] Comment on above: Performed By: #### O SMO, LD, MG, JESUS, TSHX, LIVP, B12FOL, LACTIC, FT4, BMP #### [facility] [address] [place], [place] [phone] Telehealth Nurse: Tato Ibarra MD Sodium [Moles/Vol] 139 mmol/L Normal 136-145 [facility] Comment on above: Performed By: #### O SMO, LD, MG, JESUS, TSHX, LIVP, B12FOL, LACTIC, FT4, BMP #### [facility] [place], [place] [phone] Telehealth Nurse: Tato Ibarra MD Urea nitrogen [Mass/Vol] 3 mg/dL Low 6-20 [facility] Comment on above: Performed By: #### O SMO, LD, MG, JESUS, TSHX, LIVP, B12FOL, LACTIC, FT4, BMP #### [facility] [address] [place] [address] [phone] Telehealth Nurse: Tato Ibarra MD CBC with Auto Differentialon 01-05-2024 Basophils (Bld) [#/Vol] [facility] Basophils/100 WBC (Bld) 0 % 0 - 2 % [facility] Eosinophils (Bld) [#/Vol] 0.08 10*3/uL [facility]ITAL[facility] [employer] Eosinophils/100 WBC (Bld) 2 % 1 - 4 % [facility]ITAL[facility] Erythrocyte distribution width (RBC) [Ratio] 19.8 % High 11.8 - 14.4 % [facility] Hematocrit (Bld) [Volume fraction] 27.3 % Low 36.3 - 47.1 % [facility] Hemoglobin (Bld) [Mass/Vol] 8.5 g/dL Low 11.9 - 15.1 g/dL [facility] [employer] Immature granulocytes (Bld) [#/Vol] [facility] SECMens[facility] Immature granulocytes/100 WBC (Bld) 0 % 0 [facility] Interpretation and review of laboratory results Abnormal [facility] Lymphocytes/100 WBC (Bld) 28 % 24 - 43 % [facility] Lymphocytes/100 WBC (Bld) 1.45 % [facility] MCH (RBC) [Entitic mass] 30.5 pg 25.2 - 33.5 pg [facility] MCHC (RBC) [Mass/Vol] 31.1 g/dL 28.4 - 34.8 g/dL [facility] MCV (RBC) [Entitic vol] 97.8 fL 82.6 - 102.9 fL [facility] Monocytes/100 WBC (Bld) 10 % 3 - 12 % [facility] Monocytes/100 WBC (Bld) 0.51 % [facility] Neutrophils/100 WBC (Bld) 60 % 36 - 65 % [facility] Nucleated RBC/100 WBC (Bld) [Ratio] 0.0 % 0.0 per 100 WBC [facility] Platelet mean volume (Bld) [Entitic vol] 10.1 fL 8.1 - 13.5 fL [facility] Platelets (Bld) [#/Vol] 227 10*3/uL [facility] RBC (Bld) [#/Vol] 2.79 10*6/uL Low 3.95 - 5.11 m/uL [facility] RBC (Bld) [#/Vol] ANISOCYTOSIS PRESENT [facility] Segmented neutrophils/100 WBC (Bld) 3.15 % [facility] WBC other (Bld) [#/Vol] 5.2 [facility] CBC with Diffon 01-05-2024 Abs. Basophil <0.03 Normal 0.00-0.20 [facility] Comment on above: Performed By: #### O SMO, LD, MG, JESUS, TSHX, LIVP, B12FOL, LACTIC, FT4, BMP #### [facility] [address] [place], [place] [phone] Telehealth Nurse: Tato Ibarra MD Abs.Imm.Granulocyte <0.03 Normal 0.00-0.30 [facility] Comment on above: Performed By: #### O SMO, LD, MG, JESUS, TSHX, LIVP, B12FOL, LACTIC, FT4, BMP #### [address] [address] Telehealth Nurse: Tato Ibarra MD Abs.Neutrophil (Seg) 3.15 k/uL Normal 1.50-8.10 [facility] Comment on above: Performed By: #### O SMO, LD, MG, JESUS, TSHX, LIVP, B12FOL, LACTIC, FT4, BMP #### [place] [address] Telehealth Nurse: Tato Ibarra MD Basophils/100 WBC (Bld) 0 % Normal 0-2 [facility] Comment on above: Performed By: #### O SMO, LD, MG, JESUS, TSHX, LIVP, B12FOL, LACTIC, FT4, BMP #### [place] [address] Telehealth Nurse: Tato Ibarra MD Eosinophils (Bld) [#/Vol] 0.08 10*3/uL Normal 0.00-0.44 [facility] Comment on above: Performed By: #### O SMO, LD, MG, JESUS, TSHX, LIVP, B12FOL, LACTIC, FT4, BMP #### [place] [address] Telehealth Nurse: Tato Ibarra MD Eosinophils/100 WBC (Bld) 2 % Normal 1-4 [facility] Comment on above: Performed By: #### O SMO, LD, MG, JESUS, TSHX, LIVP, B12FOL, LACTIC, FT4, BMP #### [place] [address] Telehealth Nurse: Tato Ibarra MD Erythrocyte distribution width (RBC) [Ratio] 19.8 % High 11.8-14.4 [facility] Comment on above: Performed By: #### O SMO, LD, MG, JESUS, TSHX, LIVP, B12FOL, LACTIC, FT4, BMP #### [address] [address] Telehealth Nurse: Tato Ibarra MD Hematocrit (Bld) [Volume fraction] 27.3 % Low 36.3-47.1 [facility] Comment on above: Performed By: #### O SMO, LD, MG, JESUS, TSHX, LIVP, B12FOL, LACTIC, FT4, BMP #### [address] [address] Telehealth Nurse: Tato Ibarra MD Hemoglobin (Bld) [Mass/Vol] 8.5 g/dL Low 11.9-15.1 [facility] Comment on above: Performed By: #### O SMO, LD, MG, JESUS, TSHX, LIVP, B12FOL, LACTIC, FT4, BMP #### [address] [address] Telehealth Nurse: Tato Ibarra MD Immature granulocytes/100 WBC (Bld) 0 % Normal 0 [facility] Comment on above: Performed By: #### O SMO, LD, MG, JESUS, TSHX, LIVP, B12FOL, LACTIC, FT4, BMP #### [address] [address] Telehealth Nurse: Tato Ibarra MD Lymphocytes (Bld) [#/Vol] 1.45 10*3/uL Normal 1.10-3.70 [facility] Comment on above: Performed By: #### O SMO, LD, MG, JESUS, TSHX, LIVP, B12FOL, LACTIC, FT4, BMP #### [address] [address] Telehealth Nurse: Tato Ibarra MD Lymphocytes/100 WBC (Bld) 28 % Normal 24-43 [facility] Comment on above: Performed By: #### O SMO, LD, MG, JESUS, TSHX, LIVP, B12FOL, LACTIC, FT4, BMP #### [address] [phone] Telehealth Nurse: Tato Ibarra MD MCH (RBC) [Entitic mass] 30.5 pg Normal 25.2-33.5 [facility] Comment on above: Performed By: #### O SMO, LD, MG, JESUS, TSHX, LIVP, B12FOL, LACTIC, FT4, BMP #### [address] [phone] Telehealth Nurse: Tato Ibarra MD MCHC (RBC) [Mass/Vol] 31.1 g/dL Normal 28.4-34.8 [facility] Comment on above: Performed By: #### O SMO, LD, MG, JESUS, TSHX, LIVP, B12FOL, LACTIC, FT4, BMP #### [address] [phone] Telehealth Nurse: Tato Ibarra MD MCV (RBC) [Entitic vol] 97.8 fL Normal 82.6-102.9 [facility] Comment on above: Performed By: #### O SMO, LD, MG, JESUS, TSHX, LIVP, B12FOL, LACTIC, FT4, BMP #### [address] [phone] Telehealth Nurse: Tato Ibarra MD Monocytes (Bld) [#/Vol] 0.51 10*3/uL Normal 0.10-1.20 [facility] Comment on above: Performed By: #### O SMO, LD, MG, JESUS, TSHX, LIVP, B12FOL, LACTIC, FT4, BMP #### [address] [phone] Telehealth Nurse: Tato Ibarra MD Monocytes/100 WBC (Bld) 10 % Normal 3-12 [facility] Comment on above: Performed By: #### O SMO, LD, MG, JESUS, TSHX, LIVP, B12FOL, LACTIC, FT4, BMP #### [facility] [employer] [address] [place] [phone] Telehealth Nurse: Tato Ibarra MD Neutrophil (Seg) 60 % Normal 36-65 [facility] Comment on above: Performed By: #### O SMO, LD, MG, JESUS, TSHX, LIVP, B12FOL, LACTIC, FT4, BMP #### [facility] [employer] [address] [place] [phone] Telehealth Nurse: Tato Ibarra MD NRBC Automated 0.0 per 100 WBC Normal 0.0 [facility] Comment on above: Performed By: #### O SMO, LD, MG, JESUS, TSHX, LIVP, B12FOL, LACTIC, FT4, BMP #### [address] [address] Telehealth Nurse: Tato Ibarra MD Platelet mean volume (Bld) [Entitic vol] 10.1 fL Normal 8.1-13.5 [facility] Comment on above: Performed By: #### O SMO, LD, MG, JESUS, TSHX, LIVP, B12FOL, LACTIC, FT4, BMP #### [facility] [employer] [address] [place] [phone] Telehealth Nurse: Tato Ibarra MD Platelets (Bld) [#/Vol] 227 10*3/uL Normal 138-453 [facility] Comment on above: Performed By: #### O SMO, LD, MG, JESUS, TSHX, LIVP, B12FOL, LACTIC, FT4, BMP #### [facility] [employer] [address] [place] [phone] Telehealth Nurse: Tato Ibarra MD RBC (Bld) [#/Vol] 2.79 10*6/uL Low 3.95-5.11 [facility] Comment on above: Performed By: #### O SMO, LD, MG, JESUS, TSHX, LIVP, B12FOL, LACTIC, FT4, BMP #### [facility] [address] [place] [address] [phone] Telehealth Nurse: Tato Ibarra MD RBC morphology finding Nom (Bld) ANISOCYTOSIS PRESENT Normal [facility] Comment on above: Performed By: #### O SMO, LD, MG, JESUS, TSHX, LIVP, B12FOL, LACTIC, FT4, BMP #### [facility] [address] [place] [address] [phone] Telehealth Nurse: Tato Ibarra MD WBC (Bld) [#/Vol] 5.2 10*3/uL Normal 3.5-11.3 [facility] Comment on above: Performed By: #### O SMO, LD, MG, JESUS, TSHX, LIVP, B12FOL, LACTIC, FT4, BMP #### [address] [address] Telehealth Nurse: Tato Ibarra MD Hemoglobin and Hematocriton 01-05-2024 Interpretation and review of laboratory results Abnormal [facility] Hgb/Hcton 01-05-2024 Hematocrit (Bld) [Volume fraction] 29.3 % Low 36.3-47.1 [facility] Comment on above: Performed By: #### O SMO, LD, MG, JESUS, TSHX, LIVP, B12FOL, LACTIC, FT4, BMP #### [facility] [employer] [address] [place] [address] [phone] Telehealth Nurse: Tato Ibarra MD Hemoglobin (Bld) [Mass/Vol] 9.4 g/dL Low 11.9-15.1 [facility] Comment on above: Performed By: #### O SMO, LD, MG, JESUS, TSHX, LIVP, B12FOL, LACTIC, FT4, BMP #### [facility] [address] [place] [address] [phone] Telehealth Nurse: MD Chantel Day (Potassium)on 01-05-2024 Potassium [Moles/Vol] 3.4 mmol/L Low 3.7-5.3 [facility] Comment on above: Performed By: #### O SMO, LD, MG, JESUS, TSHX, LIVP, B12FOL, LACTIC, FT4, BMP #### [facility] [address] [place] [address] Telehealth Nurse: Tato Ibarra MD Potassiumon 01-05-2024 Interpretation and review of laboratory results Abnormal [facility] Potassium [Moles/Vol] 3.4 mmol/L Low 3.7 - 5.3 mmol/L [facility] Basic Metabolic Panelon 12-24 Anion gap [Moles/Vol] 10 mmol/L 9 - 16 mmol/L [facility] [employer] Calcium [Mass/Vol] 8.0 mg/dL Low 8.6 - 10.4 mg/dL [facility] Chloride [Moles/Vol] 104 mmol/L 98 - 107 mmol/L [facility] CO2 [Moles/Vol] 24 mmol/L 20 - 31 mmol/L [facility] Creatinine [Mass/Vol] 0.3 mg/dL Low 0.50 - 0.90 mg/dL [facility] [employer] Est, Glootilia Mayt Rate - PINF [facility] Comment on above: These results are [...] [Mass/Vol] 97 mg/dL 74 - 99 mg/dL [facility] Interpretation and review of laboratory results Abnormal [facility] Potassium [Moles/Vol] 3.1 mmol/L Low 3.7 - 5.3 mmol/L [facility] [employer] Sodium [Moles/Vol] 138 mmol/L 136 - 145 mmol/L [facility] Urea nitrogen [Mass/Vol] 3 mg/dL Low 6 - 20 mg/dL [facility] Basic Metabolic Profon 01-03 Anion gap [Moles/Vol] 10 mmol/L Normal 9-16 [facility] Comment on above: Performed By: #### O SMO, LD, MG, JESUS, TSHX, LIVP, B12FOL, LACTIC, FT4, BMP #### [facility] [address] [place] [address] Telehealth Nurse: Tato Ibarra MD Calcium [Mass/Vol] 8.0 mg/dL Low 8.6-10.4 [facility] Comment on above: Performed By: #### O SMO, LD, MG, JESUS, TSHX, LIVP, B12FOL, LACTIC, FT4, BMP #### [facility] [employer] [address] [place], [place] [phone] Telehealth Nurse: Tato Ibarra MD Chloride [Moles/Vol] 104 mmol/L Normal 98-107 [facility] Comment on above: Performed By: #### O SMO, LD, MG, JESUS, TSHX, LIVP, B12FOL, LACTIC, FT4, BMP #### [facility] [address] [place] [address] [phone] Telehealth Nurse: Tato Ibarra MD CO2 [Moles/Vol] 24 mmol/L Normal 20-31 [facility] Comment on above: Performed By: #### O SMO, LD, MG, JESUS, TSHX, LIVP, B12FOL, LACTIC, FT4, BMP #### [facility] [address] [place] [address] [phone] Telehealth Nurse: Tato Ibarra MD Creatinine [Mass/Vol] 0.3 mg/dL Low 0.50-0.90 [facility] Comment on above: Performed By: #### O SMO, LD, MG, JESUS, TSHX, LIVP, B12FOL, LACTIC, FT4, BMP #### [employer] [address] [place] [address] [phone] Telehealth Nurse: Tato Ibarra MD GFR/1.73 sq M.predicted among non-blacks MDRD (S/P/Bld) [Vol rate/Area] mL/min/{1.73_m2} Normal >60 [facility] Comment on above: Result Comment: These [...] TSHX, LIVP, B12FOL, LACTIC, FT4, BMP #### [facility] [employer] [address] [place] [address] [phone] Telehealth Nurse: Tato Ibarra MD Glucose [Mass/Vol] 97 mg/dL Normal 74-99 [facility] Comment on above: Performed By: #### O SMO, LD, MG, JESUS, TSHX, LIVP, B12FOL, LACTIC, FT4, BMP #### [facility] [address] [place] [address] [phone] Telehealth Nurse: Tato Ibarra MD Potassium [Moles/Vol] 3.1 mmol/L Low 3.7-5.3 [facility] Comment on above: Performed By: #### O SMO, LD, MG, JESUS, TSHX, LIVP, B12FOL, LACTIC, FT4, BMP #### [facility] [employer] [address] [place] [address] [phone] Telehealth Nurse: Tato Ibarra MD Sodium [Moles/Vol] 138 mmol/L Normal 136-145 [facility] Comment on above: Performed By: #### O SMO, LD, MG, JESUS, TSHX, LIVP, B12FOL, LACTIC, FT4, BMP #### [employer] [facility] [place], [place] [phone] Telehealth Nurse: Tato Ibarra MD Urea nitrogen [Mass/Vol] 3 mg/dL Low 6-20 [facility] Comment on above: Performed By: #### O SMO, LD, MG, JESUS, TSHX, LIVP, B12FOL, LACTIC, FT4, BMP #### [facility] [address] [place], [place] [id number] Telehealth Nurse: Tato Ibarra MD CBC with Auto Differentialon 01-04-2024 Basophils (Bld) [#/Vol] 0.00 10*3/uL [facility] Basophils/100 WBC (Bld) 0 % 0 - 2 % [facility] Eosinophils (Bld) [#/Vol] 0.07 10*3/uL [facility] Eosinophils/100 WBC (Bld) 1 % 1 - 4 % [facility] Erythrocyte distribution width (RBC) [Ratio] 21.1 % High 11.8 - 14.4 % [facility] Hematocrit (Bld) [Volume fraction] 27.7 % Low 36.3 - 47.1 % [facility] Hemoglobin (Bld) [Mass/Vol] 8.8 g/dL Low 11.9 - 15.1 g/dL [facility] Immature granulocytes (Bld) [#/Vol] 0.07 10*3/uL [facility] Immature granulocytes/100 WBC (Bld) 1 % High 0 [facility] Interpretation and review of laboratory results Abnormal [facility] Lymphocytes/100 WBC (Bld) 16 % Low 24 - 43 % [facility] Lymphocytes/100 WBC (Bld) 1.09 % Low [facility] MCH (RBC) [Entitic mass] 31.3 pg 25.2 - 33.5 pg [facility] MCHC (RBC) [Mass/Vol] 31.8 g/dL 28.4 - 34.8 g/dL [facility] MCV (RBC) [Entitic vol] 98.6 fL 82.6 - 102.9 fL [facility] Monocytes/100 WBC (Bld) 11 % 3 - 12 % [facility] Monocytes/100 WBC (Bld) 0.75 % [facility] [employer] Morphology Ritesh (Bld) [Interp] ANISOCYTOSIS PRESENT [facility] Neutrophils/100 WBC (Bld) 71 % High 36 - 65 % [facility] Nucleated RBC/100 WBC (Bld) [Ratio] 0.0 % 0.0 per 100 WBC [facility] Platelet mean volume (Bld) [Entitic vol] 9.4 fL 8.1 - 13.5 fL [facility] Platelets (Bld) [#/Vol] 234 10*3/uL [facility] RBC (Bld) [#/Vol] 2.81 10*6/uL Low 3.95 - 5.11 m/uL [facility] Segmented neutrophils/100 WBC (Bld) 4.82 % [facility] WBC other (Bld) [#/Vol] 6.8 [facility] CBC with Diffon 01-04-2024 Abs. Basophil 0.00 k/uL Normal 0.00-0.20 [facility] Comment on above: Performed By: #### O SMO, LD, MG, JESUS, TSHX, LIVP, B12FOL, LACTIC, FT4, BMP #### [employer] [address] [place], [place] [phone] Telehealth Nurse: Tato Ibarra MD Abs.Imm.Granulocyte 0.07 k/uL Normal 0.00-0.30 [facility] Comment on above: Performed By: #### O SMO, LD, MG, JESUS, TSHX, LIVP, B12FOL, LACTIC, FT4, BMP #### [facility] [employer] [address] [place] [address] Telehealth Nurse: Tato Ibarra MD Abs.Neutrophil (Seg) 4.82 k/uL Normal 1.50-8.10 [facility] Comment on above: Performed By: #### O SMO, LD, MG, JESUS, TSHX, LIVP, B12FOL, LACTIC, FT4, BMP #### [facility] [employer] [address] [place] [address] Telehealth Nurse: Tato Ibarra MD Basophils/100 WBC (Bld) 0 % Normal 0-2 [facility] Comment on above: Performed By: #### O SMO, LD, MG, JESUS, TSHX, LIVP, B12FOL, LACTIC, FT4, BMP #### [facility] [employer] [address] [place] [address] Telehealth Nurse: Tato Ibarra MD Eosinophils (Bld) [#/Vol] 0.07 10*3/uL Normal 0.00-0.44 [facility] Comment on above: Performed By: #### O SMO, LD, MG, JESUS, TSHX, LIVP, B12FOL, LACTIC, FT4, BMP #### [facility] [employer] [address] [place] [address] Telehealth Nurse: Tato Ibarra MD Eosinophils/100 WBC (Bld) 1 % Normal 1-4 [facility] Comment on above: Performed By: #### O SMO, LD, MG, JESUS, TSHX, LIVP, B12FOL, LACTIC, FT4, BMP #### [facility] [address] [place] [address] Telehealth Nurse: Tato Ibarra MD Immature granulocytes/100 WBC (Bld) 1 % High 0 [facility] Comment on above: Performed By: #### O SMO, LD, MG, JESUS, TSHX, LIVP, B12FOL, LACTIC, FT4, BMP #### [facility] [employer] [address] [place] [address] Telehealth Nurse: Tato Ibarra MD Lymphocytes (Bld) [#/Vol] 1.09 10*3/uL Low 1.10-3.70 [facility] Comment on above: Performed By: #### O SMO, LD, MG, JESUS, TSHX, LIVP, B12FOL, LACTIC, FT4, BMP #### [facility] [address] [place] [address] Telehealth Nurse: Tato Ibarra MD Lymphocytes/100 WBC (Bld) 16 % Low 24-43 [facility] Comment on above: Performed By: #### O SMO, LD, MG, JESUS, TSHX, LIVP, B12FOL, LACTIC, FT4, BMP #### [address] [address] Telehealth Nurse: Tato Ibarra MD Monocytes (Bld) [#/Vol] 0.75 10*3/uL Normal 0.10-1.20 [facility] Comment on above: Performed By: #### O SMO, LD, MG, JESUS, TSHX, LIVP, B12FOL, LACTIC, FT4, BMP #### [address] [address] Telehealth Nurse: Tato Ibarra MD Monocytes/100 WBC (Bld) 11 % Normal 3-12 [facility] Comment on above: Performed By: #### O SMO, LD, MG, JESUS, TSHX, LIVP, B12FOL, LACTIC, FT4, BMP #### [address] [address] Telehealth Nurse: Tato Ibarra MD Morphology Ritesh (Bld) [Interp] ANISOCYTOSIS PRESENT Normal [facility] Comment on above: Performed By: #### O SMO, LD, MG, JESUS, TSHX, LIVP, B12FOL, LACTIC, FT4, BMP #### [address] [address] Telehealth Nurse: Tato Ibarra MD Neutrophil (Seg) 71 % High 36-65 [facility] Comment on above: Performed By: #### O SMO, LD, MG, JESUS, TSHX, LIVP, B12FOL, LACTIC, FT4, BMP #### [address] [address] Telehealth Nurse: Tato Ibarra MD Erythrocyte distribution width (RBC) [Ratio] 21.1 % High 11.8-14.4 [facility] Comment on above: Performed By: #### O SMO, LD, MG, JESUS, TSHX, LIVP, B12FOL, LACTIC, FT4, BMP #### [address] [address] Telehealth Nurse: Tato Ibarra MD Hematocrit (Bld) [Volume fraction] 27.7 % Low 36.3-47.1 [facility] Comment on above: Performed By: #### O SMO, LD, MG, JESUS, TSHX, LIVP, B12FOL, LACTIC, FT4, BMP #### [address] [address] Telehealth Nurse: Tato Ibarra MD Hemoglobin (Bld) [Mass/Vol] 8.8 g/dL Low 11.9-15.1 [facility] Comment on above: Performed By: #### O SMO, LD, MG, JESUS, TSHX, LIVP, B12FOL, LACTIC, FT4, BMP #### [address] [address] Telehealth Nurse: Tato Ibarra MD MCH (RBC) [Entitic mass] 31.3 pg Normal 25.2-33.5 [facility] Comment on above: Performed By: #### O SMO, LD, MG, JESUS, TSHX, LIVP, B12FOL, LACTIC, FT4, BMP #### [facility] [employer] [address] [place] [address] [phone] Telehealth Nurse: Tato Ibarra MD MCHC (RBC) [Mass/Vol] 31.8 g/dL Normal 28.4-34.8 [facility] Comment on above: Performed By: #### O SMO, LD, MG, JESUS, TSHX, LIVP, B12FOL, LACTIC, FT4, BMP #### [facility] [employer] [address] [place] [address] Telehealth Nurse: Tato Ibarra MD MCV (RBC) [Entitic vol] 98.6 fL Normal 82.6-102.9 [facility] Comment on above: Performed By: #### O SMO, LD, MG, JESUS, TSHX, LIVP, B12FOL, LACTIC, FT4, BMP #### [address] [address] Telehealth Nurse: Tato Ibarra MD NRBC Automated 0.0 per 100 WBC Normal 0.0 [facility] Comment on above: Performed By: #### O SMO, LD, MG, JESUS, TSHX, LIVP, B12FOL, LACTIC, FT4, BMP #### [address] [address] Telehealth Nurse: Tato Ibarra MD Platelet mean volume (Bld) [Entitic vol] 9.4 fL Normal 8.1-13.5 [facility] Comment on above: Performed By: #### O SMO, LD, MG, JESUS, TSHX, LIVP, B12FOL, LACTIC, FT4, BMP #### [address] [address] Telehealth Nurse: Tato Ibarra MD Platelets (Bld) [#/Vol] 234 10*3/uL Normal 138-453 [facility] Comment on above: Performed By: #### O SMO, LD, MG, JESUS, TSHX, LIVP, B12FOL, LACTIC, FT4, BMP #### [facility] [address] [place] [address] Telehealth Nurse: Tato Ibarra MD RBC (Bld) [#/Vol] 2.81 10*6/uL Low 3.95-5.11 [facility] Comment on above: Performed By: #### O SMO, LD, MG, JESUS, TSHX, LIVP, B12FOL, LACTIC, FT4, BMP #### [address] [place], [place] [phone] Telehealth Nurse: Tato Ibarra MD WBC (Bld) [#/Vol] 6.8 10*3/uL Normal 3.5-11.3 [facility] Comment on above: Performed By: #### O SMO, LD, MG, JESUS, TSHX, LIVP, B12FOL, LACTIC, FT4, BMP #### [facility] [employer] [address] [place] [address] [phone] Telehealth Nurse: Tato Ibarra MD Hemoglobin and Hematocriton 5 Hematocrit (Bld) [Volume fraction] 27.8 % Low 36.3 - 47.1 % [facility] Hemoglobin (Bld) [Mass/Vol] 8.9 g/dL Low 11.9 - 15.1 g/dL [facility] Interpretation and review of laboratory results Abnormal [facility] Hgb/Hcton 01-04-2024 Hematocrit (Bld) [Volume fraction] 27.8 % Low 36.3-47.1 [facility] Comment on above: Performed By: #### O SMO, LD, MG, JESUS, TSHX, LIVP, B12FOL, LACTIC, FT4, BMP #### [employer] [address] [place] [address] [phone] Telehealth Nurse: Tato Ibarra MD Hemoglobin (Bld) [Mass/Vol] 8.9 g/dL Low 11.9-15.1 [facility] Comment on above: Performed By: #### O SMO, LD, MG, JESUS, TSHX, LIVP, B12FOL, LACTIC, FT4, BMP #### [facility] [employer] [address] [place] [address] [phone] Telehealth Nurse: Tato Ibarra MD Basic Metab w/rfx MGon 01-02 Anion gap [Moles/Vol] 10 mmol/L Normal 9-16 [facility] Comment on above: Performed By: #### P TT, PT #### [address] [address] Telehealth Nurse: Tato Ibarra MD Calcium [Mass/Vol] 8.2 mg/dL Low 8.6-10.4 [facility] Comment on above: Performed By: #### P TT, PT #### [address] [address] Telehealth Nurse: Tato Ibarra MD Chloride [Moles/Vol] 106 mmol/L Normal 98-107 [facility] Comment on above: Performed By: #### P TT, PT #### [address] [address] Telehealth Nurse: Tato Ibarra MD CO2 [Moles/Vol] 24 mmol/L Normal 20-31 [facility] Comment on above: Performed By: #### P TT, PT #### [address] [address] Telehealth Nurse: Tato Ibarra MD Creatinine [Mass/Vol] 0.3 mg/dL Low 0.50-0.90 [facility] Comment on above: Performed By: #### P TT, PT #### [address] [address] Telehealth Nurse: Tato Ibarra MD GFR/1.73 sq M.predicted among non-blacks MDRD (S/P/Bld) [Vol rate/Area] mL/min/{1.73_m2} Normal >60 [facility] Comment on above: Result Comment: These [...] Performed By: #### P TT, PT #### [address] [place] [address] Telehealth Nurse: Tato Ibarra MD Glucose [Mass/Vol] 95 mg/dL Normal 74-99 [facility] Comment on above: Performed By: #### P TT, PT #### [facility] [address] [place] [address] Telehealth Nurse: Tato Ibarra MD Potassium [Moles/Vol] 3.4 mmol/L Low 3.7-5.3 [facility] Comment on above: Performed By: #### P TT, PT #### [facility] [address] [place] [address] Telehealth Nurse: Tato Ibarra MD Sodium [Moles/Vol] 140 mmol/L Normal 136-145 [facility] Comment on above: Performed By: #### P TT, PT #### [facility] [address] [place] [address] Telehealth Nurse: Tato Ibarra MD Urea nitrogen [Mass/Vol] 3 mg/dL Low 6-20 [facility] Comment on above: Performed By: #### P TT, PT #### [facility] [address] [place] [address] Telehealth Nurse: Tato Ibarra MD Basic Metabolic Panel w/ Ref jacinto to MGon 01-03-2024 Anion gap [Moles/Vol] 10 mmol/L 9 - 16 mmol/L [facility] [employer] Calcium [Mass/Vol] 8.2 mg/dL Low 8.6 - 10.4 mg/dL [facility] Chloride [Moles/Vol] 106 mmol/L 98 - 107 mmol/L [facility] [employer] CO2 [Moles/Vol] 24 mmol/L 20 - 31 mmol/L [facility] Creatinine [Mass/Vol] 0.3 mg/dL Low 0.50 - 0.90 mg/dL [facility] Est, Glom Filt Rate - PINF [facility] Comment on above: These results are [...] [Mass/Vol] 95 mg/dL 74 - 99 mg/dL [facility] Interpretation and review of laboratory results Abnormal [facility] Potassium [Moles/Vol] 3.4 mmol/L Low 3.7 - 5.3 mmol/L [facility] Sodium [Moles/Vol] 140 mmol/L 136 - 145 mmol/L [facility] Urea nitrogen [Mass/Vol] 3 mg/dL Low 6 - 20 mg/dL [facility] CBCon 01-03-2024 Erythrocyte distribution width (RBC) [Ratio] 22.1 % High 11.8 - 14.4 % [facility] Hematocrit (Bld) [Volume fraction] 26.2 % Low 36.3 - 47.1 % [facility] Hemoglobin (Bld) [Mass/Vol] 9.0 g/dL Low 11.9 - 15.1 g/dL [facility] Interpretation and review of laboratory results Abnormal [facility] MCH (RBC) [Entitic mass] 31.9 pg 25.2 - 33.5 pg [facility] MCHC (RBC) [Mass/Vol] 34.4 g/dL 28.4 - 34.8 g/dL [facility] MCV (RBC) [Entitic vol] 92.9 fL 82.6 - 102.9 fL [facility] Nucleated RBC/100 WBC (Bld) [Ratio] 0.0 % 0.0 per 100 WBC [facility] Platelet mean volume (Bld) [Entitic vol] 9.6 fL 8.1 - 13.5 fL [facility] Platelets (Bld) [#/Vol] 219 10*3/uL [facility] RBC (Bld) [#/Vol] 2.82 10*6/uL Low 3.95 - 5.11 m/uL [facility] WBC other (Bld) [#/Vol] 8.4 [facility] Erythrocyte distribution width (RBC) [Ratio] 22.1 % High 11.8-14.4 [facility] Comment on above: Performed By: #### O SMO, LD, MG, JESUS, TSHX, LIVP, B12FOL, LACTIC, FT4, BMP #### [facility] [address] [place] [address] [phone] Telehealth Nurse: Tato Ibarra MD Hematocrit (Bld) [Volume fraction] 26.2 % Low 36.3-47.1 [facility] Comment on above: Performed By: #### O SMO, LD, MG, JESUS, TSHX, LIVP, B12FOL, LACTIC, FT4, BMP #### [address] [phone] Telehealth Nurse: Tato Ibarra MD Hemoglobin (Bld) [Mass/Vol] 9.0 g/dL Low 11.9-15.1 [facility] Comment on above: Performed By: #### O SMO, LD, MG, JESUS, TSHX, LIVP, B12FOL, LACTIC, FT4, BMP #### [facility] [employer] [address] [place] [address] [phone] Telehealth Nurse: Tato Ibarra MD MCH (RBC) [Entitic mass] 31.9 pg Normal 25.2-33.5 [facility] Comment on above: Performed By: #### O SMO, LD, MG, JESUS, TSHX, LIVP, B12FOL, LACTIC, FT4, BMP #### [facility] [employer] [address] [place] [address] Telehealth Nurse: Tato Ibarra MD MCHC (RBC) [Mass/Vol] 34.4 g/dL Normal 28.4-34.8 [facility] Comment on above: Performed By: #### O SMO, LD, MG, JESUS, TSHX, LIVP, B12FOL, LACTIC, FT4, BMP #### [address] [address] Telehealth Nurse: Tato Ibarra MD MCV (RBC) [Entitic vol] 92.9 fL Normal 82.6-102.9 [facility] Comment on above: Performed By: #### O SMO, LD, MG, JESUS, TSHX, LIVP, B12FOL, LACTIC, FT4, BMP #### [address] [address] Telehealth Nurse: Tato Ibarra MD NRBC Automated 0.0 per 100 WBC Normal 0.0 [facility] Comment on above: Performed By: #### O SMO, LD, MG, JESUS, TSHX, LIVP, B12FOL, LACTIC, FT4, BMP #### [address] [address] Telehealth Nurse: Tato Ibarra MD Platelet mean volume (Bld) [Entitic vol] 9.6 fL Normal 8.1-13.5 [facility] Comment on above: Performed By: #### O SMO, LD, MG, JESUS, TSHX, LIVP, B12FOL, LACTIC, FT4, BMP #### [address] [address] Telehealth Nurse: Tato Ibarra MD Platelets (Bld) [#/Vol] 219 10*3/uL Normal 138-453 [facility] Comment on above: Performed By: #### O SMO, LD, MG, JESUS, TSHX, LIVP, B12FOL, LACTIC, FT4, BMP #### [address] [address] Telehealth Nurse: Tato Ibarra MD RBC (Bld) [#/Vol] 2.82 10*6/uL Low 3.95-5.11 [facility] Comment on above: Performed By: #### O SMO, LD, MG, JESUS, TSHX, LIVP, B12FOL, LACTIC, FT4, BMP #### [facility] [address] [place], [place] [phone] Telehealth Nurse: Tato Ibarra MD WBC (Bld) [#/Vol] 8.4 10*3/uL Normal 3.5-11.3 [facility] Comment on above: Performed By: #### O SMO, LD, MG, JESUS, TSHX, LIVP, B12FOL, LACTIC, FT4, BMP #### [facility] [address] [place], [place] [phone] Telehealth Nurse: Tato Ibarra MD CBC with Auto Differentialon 01-03-2024 Basophils (Bld) [#/Vol] 0.00 10*3/uL [facility] Basophils/100 WBC (Bld) 0 % 0 - 2 % [facility] Eosinophils (Bld) [#/Vol] 0.00 10*3/uL [facility] Eosinophils/100 WBC (Bld) 0 % Low 1 - 4 % [facility] Erythrocyte distribution width (RBC) [Ratio] 21.8 % High 11.8 - 14.4 % [facility] Hematocrit (Bld) [Volume fraction] 25.5 % Low 36.3 - 47.1 % [facility] Hemoglobin (Bld) [Mass/Vol] 8.6 g/dL Low 11.9 - 15.1 g/dL [facility] Immature granulocytes (Bld) [#/Vol] 0.00 10*3/uL [facility] Immature granulocytes/100 WBC (Bld) 0 % 0 [facility] Interpretation and review of laboratory results Abnormal [facility] Lymphocytes/100 WBC (Bld) 17 % Low 24 - 43 % [facility] Lymphocytes/100 WBC (Bld) 1.24 % [facility] MCH (RBC) [Entitic mass] 31.6 pg 25.2 - 33.5 pg [facility] MCHC (RBC) [Mass/Vol] 33.7 g/dL 28.4 - 34.8 g/dL [facility] MCV (RBC) [Entitic vol] 93.8 fL 82.6 - 102.9 fL [facility] [employer] [facility] Monocytes/100 WBC (Bld) 9 % 3 - 12 % [facility] Monocytes/100 WBC (Bld) 0.66 % [facility] Morphology Ritesh (Bld) [Interp] ANISOCYTOSIS PRESENT [facility] Neutrophils/100 WBC (Bld) 74 % High 36 - 65 % [facility] Nucleated RBC/100 WBC (Bld) [Ratio] 0.0 % 0.0 per 100 WBC [facility] Platelet mean volume (Bld) [Entitic vol] 9.7 fL 8.1 - 13.5 fL [facility] Platelets (Bld) [#/Vol] 220 10*3/uL [facility] RBC (Bld) [#/Vol] 2.72 10*6/uL Low 3.95 - 5.11 m/uL [facility] [employer] Segmented neutrophils/100 WBC (Bld) 5.40 % [facility] WBC other (Bld) [#/Vol] 7.3 [facility] CBC with Diffon 01-03-2024 Abs. Basophil 0.00 k/uL Normal 0.00-0.20 [facility] Comment on above: Performed By: #### P TT, PT #### [employer] [address] [place] [address] Telehealth Nurse: Tato Ibarra MD Abs.Imm.Granulocyte 0.00 k/uL Normal 0.00-0.30 [facility] Comment on above: Performed By: #### P TT, PT #### [employer] [address] [place] [address] Telehealth Nurse: Tato Ibarra MD Abs.Neutrophil (Seg) 5.40 k/uL Normal 1.50-8.10 [facility] Comment on above: Performed By: #### P TT, PT #### [employer] [address] [place] [address] [phone] Telehealth Nurse: Tato Ibarra MD Basophils/100 WBC (Bld) 0 % Normal 0-2 [facility] Comment on above: Performed By: #### P TT, PT #### [address] [address] Telehealth Nurse: Tato Ibarra MD Eosinophils (Bld) [#/Vol] 0.00 10*3/uL Normal 0.00-0.44 [facility] Comment on above: Performed By: #### P TT, PT #### [address] [address] Telehealth Nurse: Tato Ibarra MD Eosinophils/100 WBC (Bld) 0 % Low 1-4 [facility] Comment on above: Performed By: #### P TT, PT #### [place] [address] Telehealth Nurse: Tato Ibarra MD Immature granulocytes/100 WBC (Bld) 0 % Normal 0 [facility] Comment on above: Performed By: #### P TT, PT #### [address] [address] Telehealth Nurse: Tato Ibarra MD Lymphocytes (Bld) [#/Vol] 1.24 10*3/uL Normal 1.10-3.70 [facility] Comment on above: Performed By: #### P TT, PT #### [address] [address] Telehealth Nurse: Tato Ibarra MD Lymphocytes/100 WBC (Bld) 17 % Low 24-43 [facility] Comment on above: Performed By: #### P TT, PT #### [place] [address] Telehealth Nurse: Tato Ibarra MD Monocytes (Bld) [#/Vol] 0.66 10*3/uL Normal 0.10-1.20 [facility] Comment on above: Performed By: #### P TT, PT #### [address] [address] Telehealth Nurse: Tato Ibarra MD Monocytes/100 WBC (Bld) 9 % Normal 3-12 [facility] Comment on above: Performed By: #### P TT, PT #### [address] [address] Telehealth Nurse: Tato Ibarra MD Morphology Ritesh (Bld) [Interp] ANISOCYTOSIS PRESENT Normal [facility] Comment on above: Performed By: #### P TT, PT #### [address] [address] Telehealth Nurse: Tato Ibarra MD Neutrophil (Seg) 74 % High 36-65 [facility] Comment on above: Performed By: #### P TT, PT #### [address] [address] Telehealth Nurse: Tato Ibarra MD Erythrocyte distribution width (RBC) [Ratio] 21.8 % High 11.8-14.4 [facility] Comment on above: Performed By: #### P TT, PT #### [address] [address] Telehealth Nurse: Tato Ibarra MD Hematocrit (Bld) [Volume fraction] 25.5 % Low 36.3-47.1 [facility] Comment on above: Performed By: #### P TT, PT #### [address] [address] Telehealth Nurse: Tato Ibarra MD Hemoglobin (Bld) [Mass/Vol] 8.6 g/dL Low 11.9-15.1 [facility] Comment on above: Performed By: #### P TT, PT #### [address] [address] Telehealth Nurse: Tato Ibarra MD MCH (RBC) [Entitic mass] 31.6 pg Normal 25.2-33.5 [facility] Comment on above: Performed By: #### P TT, PT #### [address] [address] Telehealth Nurse: Tato Ibarra MD MCHC (RBC) [Mass/Vol] 33.7 g/dL Normal 28.4-34.8 [facility] Comment on above: Performed By: #### P TT, PT #### [address] [address] Telehealth Nurse: Tato Ibarra MD MCV (RBC) [Entitic vol] 93.8 fL Normal 82.6-102.9 [facility] Comment on above: Performed By: #### P TT, PT #### [address] [address] Telehealth Nurse: Tato Ibarra MD NRBC Automated 0.0 per 100 WBC Normal 0.0 [facility] Comment on above: Performed By: #### P TT, PT #### [address] [address] Telehealth Nurse: Tato Ibarra MD Platelet mean volume (Bld) [Entitic vol] 9.7 fL Normal 8.1-13.5 [facility] Comment on above: Performed By: #### P TT, PT #### [address] [address] Telehealth Nurse: Tato Ibarra MD Platelets (Bld) [#/Vol] 220 10*3/uL Normal 138-453 [facility] Comment on above: Performed By: #### P TT, PT #### [address] [address] Telehealth Nurse: Tato Ibarra MD RBC (Bld) [#/Vol] 2.72 10*6/uL Low 3.95-5.11 [facility] Comment on above: Performed By: #### P TT, PT #### [facility] [address] [place], [place] [phone] Telehealth Nurse: Tato Ibarra MD WBC (Bld) [#/Vol] 7.3 10*3/uL Normal 3.5-11.3 [facility] Comment on above: Performed By: #### P TT, PT #### [facility] [address] [place], [place] [phone] Telehealth Nurse: Tato Ibarra MD EKG 12 Leadon 01-03-2024 Atrial Rate 94 BPM [facility] P Saffell 14 degrees [facility] P-R Interval 162 ms [facility] Q-T Interval 350 ms [facility] QRS Duration 86 ms [facility] QTc Calculation (Bazett) 437 ms [facility] R Saffell 25 degrees [facility] T Saffell -97 degrees [facility] Ventricular Rate 94 BPM [facility] Normal sinus rhythm T wave abnormality, consider anterior ischemia Abnormal ECG When compared with ECG of 01-JAN-2024 18:, No significant change was found [facility] Omar Bush MD - 01/03/2024 Normal sinus rhythm T wave abnormality, consider anterior ischemia Abnormal ECG When compared with ECG of 01-JAN-2024 18:, No significant change was found [facility] Hemoglobin and Hematocriton 01-03-2024 Hematocrit (Bld) [Volume fraction] 28.3 % Low 36.3 - 47.1 % [facility] Hemoglobin (Bld) [Mass/Vol] 9.3 g/dL Low 11.9 - 15.1 g/dL [facility] Interpretation and review of laboratory results Abnormal [facility] Hematocrit (Bld) [Volume fraction] 27.3 % Low 36.3 - 47.1 % [facility] Hemoglobin (Bld) [Mass/Vol] 9.1 g/dL Low 11.9 - 15.1 g/dL [facility] Interpretation and review of laboratory results Abnormal [facility] Hgb/[place]ct[place] 01-03-2024 Hematocrit (Bld) [Volume fraction] 28.3 % Low 36.3-47.1 [facility] Comment on above: Performed By: #### O SMO, LD, MG, JESUS, TSHX, LIVP, B12FOL, LACTIC, FT4, BMP #### [employer] [address] [place] [address] [phone] Telehealth Nurse: Tato Ibarra MD Hemoglobin (Bld) [Mass/Vol] 9.3 g/dL Low 11.9-15.1 [facility] Comment on above: Performed By: #### O SMO, LD, MG, JESUS, TSHX, LIVP, B12FOL, LACTIC, FT4, BMP #### [employer] [address] [place] [address] [phone] Telehealth Nurse: Tato Ibarra MD Hematocrit (Bld) [Volume fraction] 27.3 % Low 36.3-47.1 [facility] Comment on above: Performed By: #### P TT, PT #### [employer] [address] [place] [address] [id number] Telehealth Nurse: Tato Ibarra MD Hemoglobin (Bld) [Mass/Vol] 9.1 g/dL Low 11.9-15.1 [facility] Comment on above: Performed By: #### P TT, PT #### [employer] [address] [place] [id number] Telehealth Nurse: Tato Ibarra MD K (Potassium)on 01-03-2024 Potassium [Moles/Vol] 3.1 mmol/L Low 3.7-5.3 [facility] Comment on above: Performed By: #### O SMO, LD, MG, JESUS, TSHX, LIVP, B12FOL, LACTIC, FT4, BMP #### [employer] [address] [place] [address]21 Telehealth Nurse: Tato Ibrara MD Magnesiumon 01-03-2024 Magnesium [Mass/Vol] 1.8 mg/dL 1.6 - 2.6 mg/dL [facility] Magnesium [Mass/Vol] 1.8 mg/dL Normal 1.6-2.6 [facility] Comment on above: Performed By: #### P TT, PT #### [facility] [address] [place] [id number] Telehealth Nurse: Tato Ibarra MD Potassiumon 01-03-2024 Interpretation and review of laboratory results Abnormal [facility] Potassium [Moles/Vol] 3.1 mmol/L Low 3.7 - 5.3 mmol/L [facility] Basic Metab w/rfx MGon 01-01 Anion gap [Moles/Vol] 9 mmol/L Normal 9-16 [facility] Comment on above: Performed By: #### O SMO, LD, MG, JESUS, TSHX, LIVP, B12FOL, LACTIC, FT4, BMP #### [facility] [address] [place] [address] 70581 Telehealth Nurse: Tato Ibarra MD Calcium [Mass/Vol] 7.8 mg/dL Low 8.6-10.4 [facility] Comment on above: Performed By: #### O SMO, LD, MG, JESUS, TSHX, LIVP, B12FOL, LACTIC, FT4, BMP #### [facility] [address] [place] [phone] Telehealth Nurse: Tato Ibarra MD Chloride [Moles/Vol] 110 mmol/L High 98-107 [facility] Comment on above: Performed By: #### O SMO, LD, MG, JESUS, TSHX, LIVP, B12FOL, LACTIC, FT4, BMP #### [facility] [employer] [address] [place] [address]60 Telehealth Nurse: Tato Ibarra MD CO2 [Moles/Vol] 22 mmol/L Normal 20-31 [facility] Comment on above: Performed By: #### O SMO, LD, MG, JESUS, TSHX, LIVP, B12FOL, LACTIC, FT4, BMP #### [facility] [place] [address] Telehealth Nurse: Tato Ibarra MD Creatinine [Mass/Vol] 0.3 mg/dL Low 0.50-0.90 [facility] Comment on above: Performed By: #### O SMO, LD, MG, JESUS, TSHX, LIVP, B12FOL, LACTIC, FT4, BMP #### [facility] [address] [place] [address] 15575 Telehealth Nurse: Tato Ibarra MD GFR/1.73 sq M.predicted among non-blacks MDRD (S/P/Bld) [Vol rate/Area] mL/min/{1.73_m2} Normal >60 [facility] Comment on above: Result Comment: These [...] TSHX, LIVP, B12FOL, LACTIC, FT4, BMP #### [facility] [place] [address] Telehealth Nurse: Tato Ibarra MD Glucose [Mass/Vol] 105 mg/dL High 74-99 [facility] Comment on above: Performed By: #### O SMO, LD, MG, JESUS, TSHX, LIVP, B12FOL, LACTIC, FT4, BMP #### [facility] [address] [place] [address] [phone] Telehealth Nurse: Tato Ibarra MD Potassium [Moles/Vol] 3.0 mmol/L Low 3.7-5.3 [facility] Comment on above: Performed By: #### O SMO, LD, MG, JESUS, TSHX, LIVP, B12FOL, LACTIC, FT4, BMP #### [facility] [address] [place], [place] [phone] Telehealth Nurse: Tato Ibarra MD Sodium [Moles/Vol] 141 mmol/L Normal 136-145 [facility] Comment on above: Performed By: #### O SMO, LD, MG, JESUS, TSHX, LIVP, B12FOL, LACTIC, FT4, BMP #### [facility] [address] [place], [place] 2530008 Telehealth Nurse: Tato Ibarra MD Urea nitrogen [Mass/Vol] 8 mg/dL Normal 6-20 [facility] Comment on above: Performed By: #### O SMO, LD, MG, JESUS, TSHX, LIVP, B12FOL, LACTIC, FT4, BMP #### [employer] [facility] [place], [place] [phone] Telehealth Nurse: Tato Ibarra MD Basic Metabolic Panel w/ Ref jacinto to MGon 01-02-2024 Anion gap [Moles/Vol] 9 mmol/L 9 - 16 mmol/L [facility] [employer] Calcium [Mass/Vol] 7.8 mg/dL Low 8.6 - 10.4 mg/dL [facility] [employer] Chloride [Moles/Vol] 110 mmol/L High 98 - 107 mmol/L [facility] [employer] CO2 [Moles/Vol] 22 mmol/L 20 - 31 mmol/L [facility] Creatinine [Mass/Vol] 0.3 mg/dL Low 0.50 - 0.90 mg/dL [facility] [employer] Est, Glom Filt Rate - PINF [facility] Comment on above: These results are [...] 105 mg/dL High 74 - 99 mg/dL [facility] Interpretation and review of laboratory results Abnormal [facility] Potassium [Moles/Vol] 3.0 mmol/L Low 3.7 - 5.3 mmol/L [facility] Sodium [Moles/Vol] 141 mmol/L 136 - 145 mmol/L [facility] Urea nitrogen [Mass/Vol] 8 mg/dL 6 - 20 mg/dL [facility] CBC with Auto Differentialon 01-02-2024 Basophils (Bld) [#/Vol] 0.00 10*3/uL [facility] Erythrocyte distribution width (RBC) [Ratio] 23.0 % High 11.8 - 14.4 % [facility] Hematocrit (Bld) [Volume fraction] 24.8 % Low 36.3 - 47.1 % [facility] Hemoglobin (Bld) [Mass/Vol] 8.4 g/dL Low 11.9 - 15.1 g/dL [facility] Immature granulocytes (Bld) [#/Vol] 0.00 10*3/uL [facility] Interpretation and review of laboratory results Abnormal [facility] Lymphocytes/100 WBC (Bld) 1.50 % [facility] MCH (RBC) [Entitic mass] 31.1 pg 25.2 - 33.5 pg [facility] MCHC (RBC) [Mass/Vol] 33.9 g/dL 28.4 - 34.8 g/dL [facility] MCV (RBC) [Entitic vol] 91.9 fL 82.6 - 102.9 fL [facility] Monocytes/100 WBC (Bld) 0.82 % [facility] Morphology Ritesh (Bld) [Interp] HYPOCHROMIA PRESENT [facility] Neutrophils/100 WBC (Bld) 66 % High 36 - 65 % [facility] Nucleated RBC/100 WBC (Bld) [Ratio] 0.0 % 0.0 per 100 WBC [facility] Platelet mean volume (Bld) [Entitic vol] 9.3 fL 8.1 - 13.5 fL [facility] Platelets (Bld) [#/Vol] 207 10*3/uL [facility] RBC (Bld) [#/Vol] 2.70 10*6/uL Low 3.95 - 5.11 m/uL [facility] Segmented neutrophils/100 WBC (Bld) 4.48 % [facility] WBC other (Bld) [#/Vol] 6.8 [facility] Basophils (Bld) [#/Vol] 0.00 10*3/uL [facility] Basophils/100 WBC (Bld) 0 % 0 - 2 % [facility] Eosinophils (Bld) [#/Vol] 0.00 10*3/uL [facility] Eosinophils/100 WBC (Bld) 0 % Low 1 - 4 % [facility] Erythrocyte distribution width (RBC) [Ratio] 22.9 % High 11.8 - 14.4 % [facility] Hematocrit (Bld) [Volume fraction] 25.7 % Low 36.3 - 47.1 % [facility] Hemoglobin (Bld) [Mass/Vol] 8.8 g/dL Low 11.9 - 15.1 g/dL [facility] Immature granulocytes (Bld) [#/Vol] 0.00 10*3/uL [facility] Immature granulocytes/100 WBC (Bld) 0 % 0 [facility] Interpretation and review of laboratory results Abnormal [facility] Lymphocytes/100 WBC (Bld) 22 % Low 24 - 43 % [facility] Lymphocytes/100 WBC (Bld) 1.52 % [facility] MCH (RBC) [Entitic mass] 31.5 pg 25.2 - 33.5 pg [facility] MCHC (RBC) [Mass/Vol] 34.2 g/dL 28.4 - 34.8 g/dL [facility] MCV (RBC) [Entitic vol] 92.1 fL 82.6 - 102.9 fL [facility] Monocytes/100 WBC (Bld) 9 % 3 - 12 % [facility] Monocytes/100 WBC (Bld) 0.62 % [facility] Morphology Ritesh (Bld) [Interp] ANISOCYTOSIS PRESENT [facility] Morphology Ritesh (Bld) [Interp] HYPOCHROMIA PRESENT [facility] Neutrophils/100 WBC (Bld) 69 % High 36 - 65 % [facility] Nucleated RBC/100 WBC (Bld) [Ratio] 0.0 % 0.0 per 100 WBC [facility] Platelet mean volume (Bld) [Entitic vol] 9.2 fL 8.1 - 13.5 fL [facility] Platelets (Bld) [#/Vol] 215 10*3/uL [facility] RBC (Bld) [#/Vol] 2.79 10*6/uL Low 3.95 - 5.11 m/uL [facility] Segmented neutrophils/100 WBC (Bld) 4.76 % [facility] WBC other (Bld) [#/Vol] 6.9 [facility] CBC with Diffon 01-02-2024 Basophils/100 WBC (Bld) 0 % Normal 0-2 [facility] Comment on above: Performed By: #### O SMO, LD, MG, JESUS, TSHX, LIVP, B12FOL, LACTIC, FT4, BMP #### [employer] [facility] [address] [place] [address] [phone] Telehealth Nurse: Tato Ibarra MD Eosinophils (Bld) [#/Vol] 0.00 10*3/uL Normal 0.00-0.44 [facility] Comment on above: Performed By: #### O SMO, LD, MG, JESUS, TSHX, LIVP, B12FOL, LACTIC, FT4, BMP #### [facility] [place] [phone] Telehealth Nurse: Tato Ibarra MD Eosinophils/100 WBC (Bld) 0 % Low 1-4 [facility] Comment on above: Performed By: #### O SMO, LD, MG, JESUS, TSHX, LIVP, B12FOL, LACTIC, FT4, BMP #### [employer] [address] [place] [address] [phone] Telehealth Nurse: Tato Ibarra MD Immature granulocytes/100 WBC (Bld) 0 % Normal 0 [facility] Comment on above: Performed By: #### O SMO, LD, MG, JESUS, TSHX, LIVP, B12FOL, LACTIC, FT4, BMP #### [employer] [address] [place] [address] 05960 Telehealth Nurse: Tato Ibarra MD Lymphocytes/100 WBC (Bld) 22 % Low 24-43 [facility] Comment on above: Performed By: #### O SMO, LD, MG, JESUS, TSHX, LIVP, B12FOL, LACTIC, FT4, BMP #### [employer] [address] [place] [address] Telehealth Nurse: Tato Ibarra MD Monocytes/100 WBC (Bld) 12 % Normal 3-12 [facility] Comment on above: Performed By: #### O SMO, LD, MG, JESUS, TSHX, LIVP, B12FOL, LACTIC, FT4, BMP #### [employer] [address] [place] [address] 59952 Telehealth Nurse: Tato Ibarra MD Morphology Ritesh (Bld) [Interp] ANISOCYTOSIS PRESENT Normal [facility] Comment on above: Result Comment: HYPO CHROMIA PRESENT Performed By: #### O SMO, LD, MG, JESUS, TSHX, LIVP, B12FOL, LACTIC, FT4, BMP #### [employer] [address] [place] [address] [phone] Telehealth Nurse: Tato Ibarra MD Abs. Basophil 0.00 k/uL Normal 0.00-0.20 [facility] Comment on above: Performed By: #### O SMO, LD, MG, JESUS, TSHX, LIVP, B12FOL, LACTIC, FT4, BMP #### [address] [address] Telehealth Nurse: Tato Ibarra MD Abs.Imm.Granulocyte 0.00 k/uL Normal 0.00-0.30 [facility] Comment on above: Performed By: #### O SMO, LD, MG, JESUS, TSHX, LIVP, B12FOL, LACTIC, FT4, BMP #### [address] [address] Telehealth Nurse: Tato Ibarra MD Abs.Neutrophil (Seg) 4.48 k/uL Normal 1.50-8.10 [facility] Comment on above: Performed By: #### O SMO, LD, MG, JESUS, TSHX, LIVP, B12FOL, LACTIC, FT4, BMP #### [place] [address] Telehealth Nurse: Tato Ibarra MD Lymphocytes (Bld) [#/Vol] 1.50 10*3/uL Normal 1.10-3.70 [facility] Comment on above: Performed By: #### O SMO, LD, MG, JESUS, TSHX, LIVP, B12FOL, LACTIC, FT4, BMP #### [address] [address] Telehealth Nurse: Tato Ibarra MD Monocytes (Bld) [#/Vol] 0.82 10*3/uL Normal 0.10-1.20 [facility] Comment on above: Performed By: #### O SMO, LD, MG, JESUS, TSHX, LIVP, B12FOL, LACTIC, FT4, BMP #### [address] [address] Telehealth Nurse: Tato Ibarra MD Neutrophil (Seg) 66 % High 36-65 [facility] Comment on above: Performed By: #### O SMO, LD, MG, JESUS, TSHX, LIVP, B12FOL, LACTIC, FT4, BMP #### [address] [phone] Telehealth Nurse: Tato Ibarra MD Erythrocyte distribution width (RBC) [Ratio] 23.0 % High 11.8-14.4 [facility] Comment on above: Performed By: #### O SMO, LD, MG, JESUS, TSHX, LIVP, B12FOL, LACTIC, FT4, BMP #### [address] [phone] Telehealth Nurse: Tato Ibarra MD Hematocrit (Bld) [Volume fraction] 24.8 % Low 36.3-47.1 [facility] Comment on above: Performed By: #### O SMO, LD, MG, JESUS, TSHX, LIVP, B12FOL, LACTIC, FT4, BMP #### [address] [phone] Telehealth Nurse: Tato Ibarra MD Hemoglobin (Bld) [Mass/Vol] 8.4 g/dL Low 11.9-15.1 [facility] Comment on above: Performed By: #### O SMO, LD, MG, JESUS, TSHX, LIVP, B12FOL, LACTIC, FT4, BMP #### [facility] [employer] [address] [place] [address] [phone] Telehealth Nurse: Tato Ibarra MD MCH (RBC) [Entitic mass] 31.1 pg Normal 25.2-33.5 [facility] Comment on above: Performed By: #### O SMO, LD, MG, JESUS, TSHX, LIVP, B12FOL, LACTIC, FT4, BMP #### [facility] [employer] [address] [place] [address] [phone] Telehealth Nurse: Tato Ibarra MD MCHC (RBC) [Mass/Vol] 33.9 g/dL Normal 28.4-34.8 [facility] Comment on above: Performed By: #### O SMO, LD, MG, JESUS, TSHX, LIVP, B12FOL, LACTIC, FT4, BMP #### [address] [address] Telehealth Nurse: Tato Ibarra MD MCV (RBC) [Entitic vol] 91.9 fL Normal 82.6-102.9 [facility] Comment on above: Performed By: #### O SMO, LD, MG, JESUS, TSHX, LIVP, B12FOL, LACTIC, FT4, BMP #### [address] [address] Telehealth Nurse: Tato Ibarra MD NRBC Automated 0.0 per 100 WBC Normal 0.0 [facility] Comment on above: Performed By: #### O SMO, LD, MG, JESUS, TSHX, LIVP, B12FOL, LACTIC, FT4, BMP #### [address] [address] Telehealth Nurse: Tato Ibarra MD Platelet mean volume (Bld) [Entitic vol] 9.3 fL Normal 8.1-13.5 [facility] Comment on above: Performed By: #### O SMO, LD, MG, JESUS, TSHX, LIVP, B12FOL, LACTIC, FT4, BMP #### [address] [address] Telehealth Nurse: Tato Ibarra MD Platelets (Bld) [#/Vol] 207 10*3/uL Normal 138-453 [facility] Comment on above: Performed By: #### O SMO, LD, MG, JESUS, TSHX, LIVP, B12FOL, LACTIC, FT4, BMP #### [address] [address] Telehealth Nurse: Tato Ibarra MD RBC (Bld) [#/Vol] 2.70 10*6/uL Low 3.95-5.11 [facility] Comment on above: Performed By: #### O SMO, LD, MG, JESUS, TSHX, LIVP, B12FOL, LACTIC, FT4, BMP #### [address] [address] Telehealth Nurse: Tato Ibarra MD WBC (Bld) [#/Vol] 6.8 10*3/uL Normal 3.5-11.3 [facility] Comment on above: Performed By: #### O SMO, LD, MG, JESUS, TSHX, LIVP, B12FOL, LACTIC, FT4, BMP #### [address] [address] Telehealth Nurse: Tato Ibarra MD Abs. Basophil 0.00 k/uL Normal 0.00-0.20 [facility] Comment on above: Performed By: #### O SMO, LD, MG, JESUS, TSHX, LIVP, B12FOL, LACTIC, FT4, BMP #### [place] [address] Telehealth Nurse: Tato Ibarra MD Abs.Imm.Granulocyte 0.00 k/uL Normal 0.00-0.30 [facility] Comment on above: Performed By: #### O SMO, LD, MG, JESUS, TSHX, LIVP, B12FOL, LACTIC, FT4, BMP #### [address] [address] Telehealth Nurse: Tato Ibarra MD Abs.Neutrophil (Seg) 4.76 k/uL Normal 1.50-8.10 [facility] Comment on above: Performed By: #### O SMO, LD, MG, JESUS, TSHX, LIVP, B12FOL, LACTIC, FT4, BMP #### [address] [address] Telehealth Nurse: Tato Ibarra MD Basophils/100 WBC (Bld) 0 % Normal 0-2 [facility] Comment on above: Performed By: #### O SMO, LD, MG, JESUS, TSHX, LIVP, B12FOL, LACTIC, FT4, BMP #### [place] [address] Telehealth Nurse: Tato Ibarra MD Eosinophils (Bld) [#/Vol] 0.00 10*3/uL Normal 0.00-0.44 [facility] Comment on above: Performed By: #### O SMO, LD, MG, JESUS, TSHX, LIVP, B12FOL, LACTIC, FT4, BMP #### [place] [address] Telehealth Nurse: Tato Ibarra MD Eosinophils/100 WBC (Bld) 0 % Low 1-4 [facility] Comment on above: Performed By: #### O SMO, LD, MG, JESUS, TSHX, LIVP, B12FOL, LACTIC, FT4, BMP #### [place] [address] Telehealth Nurse: Tato Ibarra MD Immature granulocytes/100 WBC (Bld) 0 % Normal 0 [facility] Comment on above: Performed By: #### O SMO, LD, MG, JESUS, TSHX, LIVP, B12FOL, LACTIC, FT4, BMP #### [place] [address] Telehealth Nurse: Tato Ibarra MD Lymphocytes (Bld) [#/Vol] 1.52 10*3/uL Normal 1.10-3.70 [facility] Comment on above: Performed By: #### O SMO, LD, MG, JESUS, TSHX, LIVP, B12FOL, LACTIC, FT4, BMP #### [place] [address] Telehealth Nurse: Tato Ibarra MD Lymphocytes/100 WBC (Bld) 22 % Low 24-43 [facility] Comment on above: Performed By: #### O SMO, LD, MG, JESUS, TSHX, LIVP, B12FOL, LACTIC, FT4, BMP #### [address] [phone] Telehealth Nurse: Tato Ibarra MD Monocytes (Bld) [#/Vol] 0.62 10*3/uL Normal 0.10-1.20 [facility] Comment on above: Performed By: #### O SMO, LD, MG, JESUS, TSHX, LIVP, B12FOL, LACTIC, FT4, BMP #### [address] [address] Telehealth Nurse: Tato Ibarra MD Monocytes/100 WBC (Bld) 9 % Normal 3-12 [facility] Comment on above: Performed By: #### O SMO, LD, MG, JESUS, TSHX, LIVP, B12FOL, LACTIC, FT4, BMP #### [place] [address] Telehealth Nurse: Tato Ibarra MD Morphology Ritesh (Bld) [Interp] ANISOCYTOSIS PRESENT Normal [facility] Comment on above: Result Comment: HYPO CHROMIA PRESENT Performed By: #### O SMO, LD, MG, JESUS, TSHX, LIVP, B12FOL, LACTIC, FT4, BMP #### [address] [address] Telehealth Nurse: Tato Ibarra MD Neutrophil (Seg) 69 % High 36-65 [facility] Comment on above: Performed By: #### O SMO, LD, MG, JESUS, TSHX, LIVP, B12FOL, LACTIC, FT4, BMP #### [place] [address] Telehealth Nurse: Tato Ibarra MD Erythrocyte distribution width (RBC) [Ratio] 22.9 % High 11.8-14.4 [facility] Comment on above: Performed By: #### O SMO, LD, MG, JESUS, TSHX, LIVP, B12FOL, LACTIC, FT4, BMP #### [address] [phone] Telehealth Nurse: Tato Ibarra MD Hematocrit (Bld) [Volume fraction] 25.7 % Low 36.3-47.1 [facility] Comment on above: Performed By: #### O SMO, LD, MG, JESUS, TSHX, LIVP, B12FOL, LACTIC, FT4, BMP #### [address] [phone] Telehealth Nurse: Tato Ibarra MD Hemoglobin (Bld) [Mass/Vol] 8.8 g/dL Low 11.9-15.1 [facility] Comment on above: Performed By: #### O SMO, LD, MG, JESUS, TSHX, LIVP, B12FOL, LACTIC, FT4, BMP #### [place] [address] Telehealth Nurse: Tato Ibarra MD MCH (RBC) [Entitic mass] 31.5 pg Normal 25.2-33.5 [facility] Comment on above: Performed By: #### O SMO, LD, MG, JESUS, TSHX, LIVP, B12FOL, LACTIC, FT4, BMP #### [address] [address] Telehealth Nurse: Tato Ibarra MD MCHC (RBC) [Mass/Vol] 34.2 g/dL Normal 28.4-34.8 [facility] Comment on above: Performed By: #### O SMO, LD, MG, JESUS, TSHX, LIVP, B12FOL, LACTIC, FT4, BMP #### [address] [phone] Telehealth Nurse: Tato Ibarra MD MCV (RBC) [Entitic vol] 92.1 fL Normal 82.6-102.9 [facility] Comment on above: Performed By: #### O SMO, LD, MG, JESUS, TSHX, LIVP, B12FOL, LACTIC, FT4, BMP #### [address] [phone] Telehealth Nurse: Tato Ibarra MD NRBC Automated 0.0 per 100 WBC Normal 0.0 [facility] Comment on above: Performed By: #### O SMO, LD, MG, JESUS, TSHX, LIVP, B12FOL, LACTIC, FT4, BMP #### [address] [phone] Telehealth Nurse: Tato Ibarra MD Platelet mean volume (Bld) [Entitic vol] 9.2 fL Normal 8.1-13.5 [facility] Comment on above: Performed By: #### O SMO, LD, MG, JESUS, TSHX, LIVP, B12FOL, LACTIC, FT4, BMP #### [place] [address] Telehealth Nurse: Tato Ibarra MD Platelets (Bld) [#/Vol] 215 10*3/uL Normal 138-453 [facility] Comment on above: Performed By: #### O SMO, LD, MG, JESUS, TSHX, LIVP, B12FOL, LACTIC, FT4, BMP #### [address] [address] Telehealth Nurse: Tato Ibarra MD RBC (Bld) [#/Vol] 2.79 10*6/uL Low 3.95-5.11 [facility] Comment on above: Performed By: #### O SMO, LD, MG, JESUS, TSHX, LIVP, B12FOL, LACTIC, FT4, BMP #### [address] [address] Telehealth Nurse: Tato Ibarra MD WBC (Bld) [#/Vol] 6.9 10*3/uL Normal 3.5-11.3 [facility] Comment on above: Performed By: #### O SMO, LD, MG, JESUS, TSHX, LIVP, B12FOL, LACTIC, FT4, BMP #### [employer] [facility] [place] [address] Telehealth Nurse: Tato Ibarra MD CTA ABDOMEN PELVIS W WO CONT Va 01-02-2024 CTA ABDOMEN PELVIS W WO CONTRAST [...] MD 01/02/24 Final result Normal [facility] CTA Abdominal vessels and Pe lvis [...] L5-S1, L1-L2, and on either side T11. [facility] R[facility] CONSOLIDATED EXAMINATION: CTA OF THE [...] L5-S1, L1-L2, and on either side T11. [facility]SOL[facility] Nasir Martinez MD - [...] L5-S1, L1-L2, and on either side T11. [facility] [employer] CTA Abdominal vessels and Pe lvis vessels WO and W contrast IVOrdered By: Nasir Martinez on 01-02-2024 [facility] [employer] Work Phone: Comp Metabolic Pr/rfx MGon 0 01-02-2024 Albumin [Mass/Vol] 2.7 g/dL Low 3.5-5.2 [facility] Comment on above: Performed By: #### O SMO, LD, MG, JESUS, TSHX, LIVP, B12FOL, LACTIC, FT4, BMP #### [address] [address] Telehealth Nurse: Tato Ibarra MD Albumin/Glob Ratio 2.0 Normal 1.0-2.5 [facility] Comment on above: Performed By: #### O SMO, LD, MG, JESUS, TSHX, LIVP, B12FOL, LACTIC, FT4, BMP #### [address] [address] Telehealth Nurse: Tato Ibarra MD Alkaline Phos 124 U/L High 35-104 [facility] Comment on above: Performed By: #### O SMO, LD, MG, JESUS, TSHX, LIVP, B12FOL, LACTIC, FT4, BMP #### [address] [address] Telehealth Nurse: Tato Ibarra MD ALT [Catalytic activity/Vol] 13 U/L Normal 10-35 [facility] Comment on above: Performed By: #### O SMO, LD, MG, JESUS, TSHX, LIVP, B12FOL, LACTIC, FT4, BMP #### [address] [address] Telehealth Nurse: Tato Ibarra MD Anion gap [Moles/Vol] 12 mmol/L Normal 9-16 [facility] Comment on above: Performed By: #### O SMO, LD, MG, JESUS, TSHX, LIVP, B12FOL, LACTIC, FT4, BMP #### [address] [address] Telehealth Nurse: Tato Ibarra MD AST [Catalytic activity/Vol] 42 U/L High 10-35 [facility] Comment on above: Performed By: #### O SMO, LD, MG, JESUS, TSHX, LIVP, B12FOL, LACTIC, FT4, BMP #### [address] [address] Telehealth Nurse: Tato Ibarra MD Bilirubin [Mass/Vol] 0.8 mg/dL Normal 0.00-1.20 [facility] Comment on above: Performed By: #### O SMO, LD, MG, JESUS, TSHX, LIVP, B12FOL, LACTIC, FT4, BMP #### [facility] [address] [place] [id number] Telehealth Nurse: Tato Ibarra MD Calcium [Mass/Vol] 7.8 mg/dL Low 8.6-10.4 [facility] Comment on above: Performed By: #### O SMO, LD, MG, JESUS, TSHX, LIVP, B12FOL, LACTIC, FT4, BMP #### [facility] [employer] [address] [place] [id number] Telehealth Nurse: Tato Ibarra MD Chloride [Moles/Vol] 106 mmol/L Normal 98-107 [facility] Comment on above: Performed By: #### O SMO, LD, MG, JESUS, TSHX, LIVP, B12FOL, LACTIC, FT4, BMP #### [facility] [employer] [address] [place] [id number] Telehealth Nurse: Tato Ibarra MD CO2 [Moles/Vol] 19 mmol/L Low 20-31 [facility] Comment on above: Performed By: #### O SMO, LD, MG, JESUS, TSHX, LIVP, B12FOL, LACTIC, FT4, BMP #### [facility] [employer] [address] [place] [id number] Telehealth Nurse: Tato Ibarra MD Creatinine [Mass/Vol] 0.3 mg/dL Low 0.50-0.90 [facility] Comment on above: Performed By: #### O SMO, LD, MG, JESUS, TSHX, LIVP, B12FOL, LACTIC, FT4, BMP #### [facility] [address] [place] [address] Telehealth Nurse: Tato Ibarra MD GFR/1.73 sq M.predicted among non-blacks MDRD (S/P/Bld) [Vol rate/Area] mL/min/{1.73_m2} Normal >60 [facility] Comment on above: Result Comment: These [...] TSHX, LIVP, B12FOL, LACTIC, FT4, BMP #### [facility] [address] [place] [id number] Telehealth Nurse: Tato Ibarra MD Glucose [Mass/Vol] 104 mg/dL High 74-99 [facility] Comment on above: Performed By: #### O SMO, LD, MG, JESUS, TSHX, LIVP, B12FOL, LACTIC, FT4, BMP #### [employer] [address] [place] [address] [phone] Telehealth Nurse: Tato Ibarra MD Potassium [Moles/Vol] 3.9 mmol/L Normal 3.7-5.3 [facility] Comment on above: Performed By: #### O SMO, LD, MG, JESUS, TSHX, LIVP, B12FOL, LACTIC, FT4, BMP #### [employer] [address] [place] [address] [phone] Telehealth Nurse: Tato Ibarra MD Protein [Mass/Vol] 4.5 g/dL Low 6.6-8.7 [facility] Comment on above: Performed By: #### O SMO, LD, MG, JESUS, TSHX, LIVP, B12FOL, LACTIC, FT4, BMP #### [employer] [address] [place] [address] [phone] Telehealth Nurse: Tato Ibarra MD Sodium [Moles/Vol] 137 mmol/L Normal 136-145 [facility] Comment on above: Performed By: #### O SMO, LD, MG, JESUS, TSHX, LIVP, B12FOL, LACTIC, FT4, BMP #### [facility] [address] [place], [place] [phone] Telehealth Nurse: Tato Ibarra MD Urea nitrogen [Mass/Vol] 8 mg/dL Normal 6-20 [facility] Comment on above: Performed By: #### O SMO, LD, MG, JESUS, TSHX, LIVP, B12FOL, LACTIC, FT4, BMP #### [facility] [address] [place], [place] [phone] Telehealth Nurse: Tato Ibarra MD Comprehensive Metabolic Pane l w/ Reflex to MGon 01-02-2024 Albumin [Mass/Vol] 2.7 g/dL Low 3.5 - 5.2 g/dL [facility] Albumin/Globulin [Mass ratio] 2.0 {ratio} 1.0 - 2.5 [facility] ALP [Catalytic activity/Vol] 124 U/L High 35 - 104 U/L [facility] ALT [Catalytic activity/Vol] 13 U/L 10 - 35 U/L [facility] Anion gap [Moles/Vol] 12 mmol/L 9 - 16 mmol/L [facility] AST [Catalytic activity/Vol] 42 U/L High 10 - 35 U/L [facility] Bilirubin [Mass/Vol] 0.8 mg/dL 0.00 - 1.20 mg/ dL [facility] Calcium [Mass/Vol] 7.8 mg/dL Low 8.6 - 10.4 mg/dL [facility] Chloride [Moles/Vol] 106 mmol/L 98 - 107 mmol/L [facility] CO2 [Moles/Vol] 19 mmol/L Low 20 - 31 mmol/L [facility] Creatinine [Mass/Vol] 0.3 mg/dL Low 0.50 - 0.90 mg/dL [facility] Est, Glom Filt Rate - PINF [facility] Comment on above: These results are [...] 104 mg/dL High 74 - 99 mg/dL [employer] [facility] Interpretation and review of laboratory results Abnormal [facility] Potassium [Moles/Vol] 3.9 mmol/L 3.7 - 5.3 mmol/L [employer] Protein [Mass/Vol] 4.5 g/dL Low 6.6 - 8.7 g/dL [employer] Sodium [Moles/Vol] 137 mmol/L 136 - 145 mmol/L [facility] Urea nitrogen [Mass/Vol] 8 mg/dL 6 - 20 mg/dL [facility] EKG 12 LeadOrdered By: Noé Godinez on 01-02-2024 Atrial Rate 103 BPM [employer] Work Phone: P Saffell 9 degrees [employer] Work Phone: P-R Interval 156 ms [employer] Work Phone: Q-T Interval 358 ms [employer] Work Phone: QRS Duration 82 ms [employer] Work Phone: QTc Calculation (Bazett) 468 ms [employer] Work Phone: R Saffell 26 degrees [employer] Work Phone: T Saffell 170 degrees [employer] Work Phone: Ventricular Rate 103 BPM Always [employer] Work Phone: [employer] Work Phone: EKG 12 Leadon 01-02-2024 Sinus tachycardia T wave abnormality, consider anterior ischemia Abnormal ECG When compared with ECG of 31-DEC-2023 16:01, No significant change was found [facility] Noé Garcia MD - 01/02/2024 Sinus tachycardia T wave abnormality, consider anterior ischemia Abnormal ECG When compared with ECG of 31-DEC-2023 16:01, No significant change was found [facility] Glucose,Whole Bloodon 2023 Glucose [Mass/Vol] 93 mg/dL Normal 65-105 [facility] Hemoglobin and Hematocriton 01-02-2024 Hematocrit (Bld) [Volume fraction] 26.3 % Low 36.3 - 47.1 % [facility] Hemoglobin (Bld) [Mass/Vol] 9.1 g/dL Low 11.9 - 15.1 g/dL [facility] Interpretation and review of laboratory results Abnormal [facility] Hematocrit (Bld) [Volume fraction] 25.2 % Low 36.3 - 47.1 % [facility] Hemoglobin (Bld) [Mass/Vol] 8.5 g/dL Low 11.9 - 15.1 g/dL [facility] Interpretation and review of laboratory results Abnormal [facility] Hematocrit (Bld) [Volume fraction] 25.0 % Low 36.3 - 47.1 % [facility] Hemoglobin (Bld) [Mass/Vol] 8.6 g/dL Low 11.9 - 15.1 g/dL [facility] Interpretation and review of laboratory results Abnormal [facility] Hgb/Hcton 01-02-2024 Hematocrit (Bld) [Volume fraction] 26.3 % Low 36.3-47.1 [facility] Comment on above: Performed By: #### P TT, PT #### [employer] [address] [place] [address] [phone] Telehealth Nurse: Tato Ibarra MD Hemoglobin (Bld) [Mass/Vol] 9.1 g/dL Low 11.9-15.1 [facility] Comment on above: Performed By: #### P TT, PT #### [facility] [address] [place] [address] Telehealth Nurse: Tato Ibarra MD Hematocrit (Bld) [Volume fraction] 25.2 % Low 36.3-47.1 [facility] Comment on above: Performed By: #### O SMO, LD, MG, JESUS, TSHX, LIVP, B12FOL, LACTIC, FT4, BMP #### [facility] [address] [place] [address]17 Telehealth Nurse: Tato Ibarra MD Hemoglobin (Bld) [Mass/Vol] 8.5 g/dL Low 11.9-15.1 [facility] Comment on above: Performed By: #### O SMO, LD, MG, JESUS, TSHX, LIVP, B12FOL, LACTIC, FT4, BMP #### [facility] [address] [place] [address] [phone] Telehealth Nurse: Tato Ibarra MD Hematocrit (Bld) [Volume fraction] 25.0 % Low 36.3-47.1 [facility] Comment on above: Performed By: #### P TT, PT #### [facility] [address] [place] [address] 6[address] Telehealth Nurse: Tato Ibarra MD Hemoglobin (Bld) [Mass/Vol] 8.6 g/dL Low 11.9-15.1 [facility] Comment on above: Performed By: #### P TT, PT #### [facility] [address] [place] [address] [phone] Telehealth Nurse: Tato Ibarra MD IR EMBOLIZATION HEMORRHAGEon 01-02-2024 [...] angiography or nuclear medicine GI bleeding scan. [facility] RIS CONSOLIDATED Nasir Martinez MD - 01/02/2024 PROCEDURE: IR EMBOLIZATION VASCULAR [...] for a 0.035 inch wire and 5 Bangladeshi introducer sheath. A 5 Bangladeshi Bren catheter was then used to selectively catheterize the celiac artery and digital angiography was performed in AP and oblique projections. Subsequently, several different catheters were used to attempt selective catheterization of the left gastric artery, ultimately successful with a 5 Bangladeshi Cobra catheter. Digital angiography of the left [...] activity/Vol] 18 U/L 13 - 60 U/L [facility] Lipase [Catalytic activity/Vol] 18 U/L Normal 13-60 [facility] Comment on above: Performed By: #### O SMO, LD, MG, JESUS, TSHX, LIVP, B12FOL, LACTIC, FT4, BMP #### [facility] [employer] [address] [place] [address] [phone] Telehealth Nurse: Tato Ibarra MD MRSA DNA Probe, Nasalon MRSA, DNA, Nasal Negative NEGATIVE [facility] Comment on above: NEGATIVE: MRSA [...] Nasalon MRSA, DNA, Nasal Negative Normal NEG [facility] Comment on above: Result Comment: [...] TSHX, LIVP, B12FOL, LACTIC, FT4, BMP #### [employer] [address] [place] [address] Telehealth Nurse: Tato Ibarra MD Magnesiumon 01-02-2024 Magnesium [Mass/Vol] 1.9 mg/dL 1.6 - 2.6 mg/dL [facility] Magnesium [Mass/Vol] 1.9 mg/dL Normal 1.6-2.6 [facility] Comment on above: Performed By: #### O SMO, LD, MG, JESUS, TSHX, LIVP, B12FOL, LACTIC, FT4, BMP #### [facility] [address] [place] [address] Telehealth Nurse: Tato Ibarra MD No Panel Informationon 01-01 Blood Bank Blood Product Expiration Date [facility] Blood Bank ISBT Product Blood Type 9500 [facility] Blood Bank Unit Type and Rh Negative [facility] Component Leukocyte Reduced Red Cell [facility] Crossmatch Result COMPATIBLE [facility] Dispense Status Blood Bank TRANSFUSED [facility] Product Code Blood Bank [id number] [facility] Transfusion Status OK TO TRANSFUSE B ON [facility] Unit Divison 0 [facility] POC Glucose Fingerstickon Glucose [Mass/Vol] 93 mg/dL 65 - 105 mg/dL [facility] TYPE AND SCREENon 01-02-2024 ABO/Rh Negative [facility] Arm Band Number [id number] [facility] Blood Bank Sample Expiration 01/03/2024,2359 [facility] Blood product unit ID (Dose) [#] [id number] [facility] Blood product unit ID (Dose) [#] [id number] [facility] Unit Issue Date/Time [id number] [facility] Unit Issue Date/Time [facility] Troponinon 01-02-2024 Troponin I.cardiac High sensitivity method [Mass/Vol] ng/L 0 - 14 ng/L [facility] Comment on above: High Sensitivity Tro ponin values cannot be compared with other Troponin methodologies. Troponin, High Sens <6 Normal 0-14 [facility] Comment on above: Result Comment: High Sensitivity Troponin values cannot be compared with other Troponin methodologies. Performed By: #### O SMO, LD, MG, JESUS, TSHX, LIVP, B12FOL, LACTIC, FT4, BMP #### [address] [phone] Telehealth Nurse: Tato Ibarra MD APTTon 01-01-2024 aPTT Coag (Bld) [Time] 24.6 s [facility] Comment on above: IV Heparin Therapy Range: 66.0-92.0 sec aPTT Coag (Bld) [Time] 24.6 s Normal 23.0-36.5 [facility] Comment on above: Result Comment: IV Heparin Therapy Range: 66.0-92.0 sec Performed By: #### P TT, PT #### [address] [phone] Telehealth Nurse: Tato Ibarra MD Basic Metab w/rfx MGon 12-31 Anion gap [Moles/Vol] 9 mmol/L Normal 9-16 [facility] Comment on above: Performed By: #### O SMO, LD, MG, JESUS, TSHX, LIVP, B12FOL, LACTIC, FT4, BMP #### [address] [phone] Telehealth Nurse: Tato Ibarra MD Calcium [Mass/Vol] 8.5 mg/dL Low 8.6-10.4 [facility] Comment on above: Performed By: #### O SMO, LD, MG, JESUS, TSHX, LIVP, B12FOL, LACTIC, FT4, BMP #### [facility] [employer] [address] [place] [address] 81031 Telehealth Nurse: Tato Ibarra MD Chloride [Moles/Vol] 107 mmol/L Normal 98-107 [facility] Comment on above: Performed By: #### O SMO, LD, MG, JESUS, TSHX, LIVP, B12FOL, LACTIC, FT4, BMP #### [address] [phone] Telehealth Nurse: Tato Ibarra MD CO2 [Moles/Vol] 23 mmol/L Normal 20-31 [facility] Comment on above: Performed By: #### O SMO, LD, MG, JESUS, TSHX, LIVP, B12FOL, LACTIC, FT4, BMP #### [address] [phone] Telehealth Nurse: Tato Ibarra MD Creatinine [Mass/Vol] 0.3 mg/dL Low 0.50-0.90 [facility] Comment on above: Performed By: #### O SMO, LD, MG, JESUS, TSHX, LIVP, B12FOL, LACTIC, FT4, BMP #### [address] [phone] Telehealth Nurse: Tato Ibarra MD GFR/1.73 sq M.predicted among non-blacks MDRD (S/P/Bld) [Vol rate/Area] mL/min/{1.73_m2} Normal >60 [facility] Comment on above: Result Comment: These [...] TSHX, LIVP, B12FOL, LACTIC, FT4, BMP #### [address] [phone] Telehealth Nurse: Tato Ibarra MD Glucose [Mass/Vol] 86 mg/dL Normal 74-99 [facility] Comment on above: Performed By: #### O SMO, LD, MG, JESUS, TSHX, LIVP, B12FOL, LACTIC, FT4, BMP #### [facility] [place], [place] [phone] Telehealth Nurse: Tato Ibarra MD Potassium [Moles/Vol] 3.3 mmol/L Low 3.7-5.3 [facility] Comment on above: Performed By: #### O SMO, LD, MG, JESUS, TSHX, LIVP, B12FOL, LACTIC, FT4, BMP #### [facility] [place], [place] [phone] Telehealth Nurse: Tato Ibarra MD Sodium [Moles/Vol] 139 mmol/L Normal 136-145 [facility] Comment on above: Performed By: #### O SMO, LD, MG, JESUS, TSHX, LIVP, B12FOL, LACTIC, FT4, BMP #### [facility] [address] [place] [address] [phone] Telehealth Nurse: Tato Ibarra MD Urea nitrogen [Mass/Vol] mg/dL Low 6-20 [facility] Comment on above: Performed By: #### O SMO, LD, MG, JESUS, TSHX, LIVP, B12FOL, LACTIC, FT4, BMP #### [facility] [address] [place] [address] [phone] Telehealth Nurse: Tato Ibarra MD Basic Metabolic Panel w/ Ref jacinto to MGon 01-01-2024 Anion gap [Moles/Vol] 9 mmol/L 9 - 16 mmol/L [facility] Calcium [Mass/Vol] 8.5 mg/dL Low 8.6 - 10.4 mg/dL [facility] Chloride [Moles/Vol] 107 mmol/L 98 - 107 mmol/L [facility] CO2 [Moles/Vol] 23 mmol/L 20 - 31 mmol/L [facility] Creatinine [Mass/Vol] 0.3 mg/dL Low 0.50 - 0.90 mg/dL [facility] Est, Glom Filt Rate - PINF [facility] Comment on above: These results are [...] [Mass/Vol] 86 mg/dL 74 - 99 mg/dL [facility] [employer] Potassium [Moles/Vol] 3.3 mmol/L Low 3.7 - 5.3 mmol/L [facility] [employer] Sodium [Moles/Vol] 139 mmol/L 136 - 145 mmol/L [facility] [employer] Urea nitrogen [Mass/Vol] mg/dL Low 6 - 20 mg/dL [facility] [employer] CBC with Auto Differentialon 01-01-2024 Basophils (Bld) [#/Vol] 0.00 10*3/uL [facility] Basophils/100 WBC (Bld) 0 % 0 - 2 % [facility] Eosinophils (Bld) [#/Vol] 0.00 10*3/uL [facility] [employer] Eosinophils/100 WBC (Bld) 0 % Low 1 - 4 % [facility] Erythrocyte distribution width (RBC) [Ratio] 22.1 % High 11.8 - 14.4 % [facility] Hematocrit (Bld) [Volume fraction] 29.9 % Low 36.3 - 47.1 % [facility] Comment on above: TEST CONFIRMED Hemoglobin (Bld) [Mass/Vol] 10.2 g/dL Low 11.9 - 15.1 g/dL [facility] Comment on above: TEST CONFIRMED Immature granulocytes (Bld) [#/Vol] 0.07 10*3/uL [facility] [employer] Immature granulocytes/100 WBC (Bld) 1 % High 0 [facility] Interpretation and review of laboratory results Abnormal [facility] Lymphocytes/100 WBC (Bld) 17 % Low 24 - 43 % [facility] Lymphocytes/100 WBC (Bld) 1.11 % [facility] [employer] MCH (RBC) [Entitic mass] 31.6 pg 25.2 - 33.5 pg [facility] MCHC (RBC) [Mass/Vol] 34.1 g/dL 28.4 - 34.8 g/dL [facility] MCV (RBC) [Entitic vol] 92.6 fL 82.6 - 102.9 fL [facility] Monocytes/100 WBC (Bld) 6 % 3 - 12 % [facility] Monocytes/100 WBC (Bld) 0.39 % [facility] Morphology Ritesh (Bld) [Interp] Normal [facility] Neutrophils/100 WBC (Bld) 76 % High 36 - 65 % [facility] Nucleated RBC/100 WBC (Bld) [Ratio] 0.0 % 0.0 per 100 WBC [facility] Platelet mean volume (Bld) [Entitic vol] 9.5 fL 8.1 - 13.5 fL [facility] Platelets (Bld) [#/Vol] 222 10*3/uL [facility] RBC (Bld) [#/Vol] 3.23 10*6/uL Low 3.95 - 5.11 m/uL [facility] Segmented neutrophils/100 WBC (Bld) 4.93 % [facility] WBC other (Bld) [#/Vol] 6.5 [facility] Basophils (Bld) [#/Vol] 0.03 10*3/uL [facility] Basophils/100 WBC (Bld) 1 % 0 - 2 % [facility] Eosinophils (Bld) [#/Vol] 0.14 10*3/uL [facility] Eosinophils/100 WBC (Bld) 3 % 1 - 4 % [facility] Erythrocyte distribution width (RBC) [Ratio] 18.6 % High 11.8 - 14.4 % [facility] Hematocrit (Bld) [Volume fraction] 32.5 % Low 36.3 - 47.1 % [facility] Hemoglobin (Bld) [Mass/Vol] 10.6 g/dL Low 11.9 - 15.1 g/dL [facility] Immature granulocytes (Bld) [#/Vol] [facility] Immature granulocytes/100 WBC (Bld) 0 % 0 [facility] Interpretation and review of laboratory results Abnormal [facility] Lymphocytes/100 WBC (Bld) 29 % 24 - 43 % [facility] Lymphocytes/100 WBC (Bld) 1.44 % [facility] MCH (RBC) [Entitic mass] 33.5 pg 25.2 - 33.5 pg [facility] MCHC (RBC) [Mass/Vol] 32.6 g/dL 28.4 - 34.8 g/dL [facility] MCV (RBC) [Entitic vol] 102.8 fL 82.6 - 102.9 fL [facility] Monocytes/100 WBC (Bld) 11 % 3 - 12 % [facility] Monocytes/100 WBC (Bld) 0.54 % [facility] Neutrophils/100 WBC (Bld) 56 % 36 - 65 % [facility] Nucleated RBC/100 WBC (Bld) [Ratio] 0.0 % 0.0 per 100 WBC [facility] Platelet mean volume (Bld) [Entitic vol] 9.5 fL 8.1 - 13.5 fL [facility] Platelets (Bld) [#/Vol] 220 10*3/uL [facility] RBC (Bld) [#/Vol] 3.16 10*6/uL Low 3.95 - 5.11 m/uL [facility] RBC (Bld) [#/Vol] ANISOCYTOSIS PRESENT [facility] Segmented neutrophils/100 WBC (Bld) 2.72 % [facility] WBC other (Bld) [#/Vol] 4.9 [facility] CBC with Diffon 01-01-2024 Abs. Basophil 0.00 k/uL Normal 0.00-0.20 [facility] Comment on above: Performed By: #### O SMO, LD, MG, JESUS, TSHX, LIVP, B12FOL, LACTIC, FT4, BMP #### [facility] [place] [address] Telehealth Nurse: Tato Ibarra MD Abs.Imm.Granulocyte 0.07 k/uL Normal 0.00-0.30 [facility] Comment on above: Performed By: #### O SMO, LD, MG, JESUS, TSHX, LIVP, B12FOL, LACTIC, FT4, BMP #### [address] [address] Telehealth Nurse: Tato Ibarra MD Abs.Neutrophil (Seg) 4.93 k/uL Normal 1.50-8.10 [facility] Comment on above: Performed By: #### O SMO, LD, MG, JESUS, TSHX, LIVP, B12FOL, LACTIC, FT4, BMP #### [place] [address] Telehealth Nurse: Tato Ibarra MD Basophils/100 WBC (Bld) 0 % Normal 0-2 [facility] Comment on above: Performed By: #### O SMO, LD, MG, JESUS, TSHX, LIVP, B12FOL, LACTIC, FT4, BMP #### [address] [address] Telehealth Nurse: Tato Ibarra MD Eosinophils (Bld) [#/Vol] 0.00 10*3/uL Normal 0.00-0.44 [facility] Comment on above: Performed By: #### O SMO, LD, MG, JESUS, TSHX, LIVP, B12FOL, LACTIC, FT4, BMP #### [facility] [employer] [address] [place] [phone] Telehealth Nurse: Tato Ibarra MD Eosinophils/100 WBC (Bld) 0 % Low 1-4 [facility] Comment on above: Performed By: #### O SMO, LD, MG, JESUS, TSHX, LIVP, B12FOL, LACTIC, FT4, BMP #### [facility] [employer] [address] [place] [address] Telehealth Nurse: Tato Ibarra MD Immature granulocytes/100 WBC (Bld) 1 % High 0 [facility] Comment on above: Performed By: #### O SMO, LD, MG, JESUS, TSHX, LIVP, B12FOL, LACTIC, FT4, BMP #### [address] [address] Telehealth Nurse: Tato Ibarra MD Lymphocytes (Bld) [#/Vol] 1.11 10*3/uL Normal 1.10-3.70 [facility] Comment on above: Performed By: #### O SMO, LD, MG, JESUS, TSHX, LIVP, B12FOL, LACTIC, FT4, BMP #### [address] [address] Telehealth Nurse: Tato Ibarra MD Lymphocytes/100 WBC (Bld) 17 % Low 24-43 [facility] Comment on above: Performed By: #### O SMO, LD, MG, JESUS, TSHX, LIVP, B12FOL, LACTIC, FT4, BMP #### [address] [address] Telehealth Nurse: Tato Ibarra MD Monocytes (Bld) [#/Vol] 0.39 10*3/uL Normal 0.10-1.20 [facility] Comment on above: Performed By: #### O SMO, LD, MG, JESUS, TSHX, LIVP, B12FOL, LACTIC, FT4, BMP #### [place] [address] Telehealth Nurse: Tato Ibarra MD Monocytes/100 WBC (Bld) 6 % Normal 3-12 [facility] Comment on above: Performed By: #### O SMO, LD, MG, JESUS, TSHX, LIVP, B12FOL, LACTIC, FT4, BMP #### [address] [address] Telehealth Nurse: Tato Ibarra MD Morphology Ritesh (Bld) [Interp] Normal Normal [facility] Comment on above: Performed By: #### O SMO, LD, MG, JESUS, TSHX, LIVP, B12FOL, LACTIC, FT4, BMP #### [address] [address] Telehealth Nurse: Tato Ibarra MD Neutrophil (Seg) 76 % High 36-65 [facility] Comment on above: Performed By: #### O SMO, LD, MG, JESUS, TSHX, LIVP, B12FOL, LACTIC, FT4, BMP #### [address] [phone] Telehealth Nurse: Tato Ibarra MD Erythrocyte distribution width (RBC) [Ratio] 22.1 % High 11.8-14.4 [facility] Comment on above: Performed By: #### O SMO, LD, MG, JESUS, TSHX, LIVP, B12FOL, LACTIC, FT4, BMP #### [address] [phone] Telehealth Nurse: Tato Ibarra MD Hematocrit (Bld) [Volume fraction] 29.9 % Low 36.3-47.1 [facility] Comment on above: Result Comment: TEST CONFIRMED Performed By: #### O SMO, LD, MG, JESUS, TSHX, LIVP, B12FOL, LACTIC, FT4, BMP #### [address] [phone] Telehealth Nurse: Tato Ibarra MD Hemoglobin (Bld) [Mass/Vol] 10.2 g/dL Low 11.9-15.1 [facility] Comment on above: Result Comment: TEST CONFIRMED Performed By: #### O SMO, LD, MG, JESUS, TSHX, LIVP, B12FOL, LACTIC, FT4, BMP #### [address] [phone] Telehealth Nurse: Tato Ibarra MD MCH (RBC) [Entitic mass] 31.6 pg Normal 25.2-33.5 [facility] Comment on above: Performed By: #### O SMO, LD, MG, JESUS, TSHX, LIVP, B12FOL, LACTIC, FT4, BMP #### [address] [address] Telehealth Nurse: Tato Ibarra MD MCHC (RBC) [Mass/Vol] 34.1 g/dL Normal 28.4-34.8 [facility] Comment on above: Performed By: #### O SMO, LD, MG, JESUS, TSHX, LIVP, B12FOL, LACTIC, FT4, BMP #### [address] [address] Telehealth Nurse: Tato Ibarra MD MCV (RBC) [Entitic vol] 92.6 fL Normal 82.6-102.9 [facility] Comment on above: Performed By: #### O SMO, LD, MG, JESUS, TSHX, LIVP, B12FOL, LACTIC, FT4, BMP #### [address] [address] Telehealth Nurse: Tato Ibarra MD NRBC Automated 0.0 per 100 WBC Normal 0.0 [facility] Comment on above: Performed By: #### O SMO, LD, MG, JESUS, TSHX, LIVP, B12FOL, LACTIC, FT4, BMP #### [address] [address] Telehealth Nurse: Tato Ibarra MD Platelet mean volume (Bld) [Entitic vol] 9.5 fL Normal 8.1-13.5 [facility] Comment on above: Performed By: #### O SMO, LD, MG, JESUS, TSHX, LIVP, B12FOL, LACTIC, FT4, BMP #### [address] [address] Telehealth Nurse: Tato Ibarra MD Platelets (Bld) [#/Vol] 222 10*3/uL Normal 138-453 [facility] Comment on above: Performed By: #### O SMO, LD, MG, JESUS, TSHX, LIVP, B12FOL, LACTIC, FT4, BMP #### [address] [address] Telehealth Nurse: Tato Ibarra MD RBC (d) [#/Vol] 3.23 10*6/uL Low 3.95-5.11 [facility] Comment on above: Performed By: #### O SMO, LD, MG, JESUS, TSHX, LIVP, B12FOL, LACTIC, FT4, BMP #### [address] [address] Telehealth Nurse: Tato Ibarra MD WBC (d) [#/Vol] 6.5 10*3/uL Normal 3.5-11.3 [facility] Comment on above: Performed By: #### O SMO, LD, MG, JESUS, TSHX, LIVP, B12FOL, LACTIC, FT4, BMP #### [facility] [employer] [address] [place] [id number] Telehealth Nurse: Tato Ibarra MD Abs. Basophil 0.03 k/uL Normal 0.00-0.20 [facility] Comment on above: Performed By: #### O SMO, LD, MG, JESUS, TSHX, LIVP, B12FOL, LACTIC, FT4, BMP #### [facility] [employer] [address] [place] [id number] Telehealth Nurse: Tato Ibarra MD Abs.Imm.Granulocyte <0.03 Normal 0.00-0.30 [facility] Comment on above: Performed By: #### O SMO, LD, MG, JESUS, TSHX, LIVP, B12FOL, LACTIC, FT4, BMP #### [facility] [employer] [address] [place] [id number] Telehealth Nurse: Tato Ibarra MD Abs.Neutrophil (Seg) 2.72 k/uL Normal 1.50-8.10 [facility] Comment on above: Performed By: #### O SMO, LD, MG, JESUS, TSHX, LIVP, B12FOL, LACTIC, FT4, BMP #### [facility] [employer] [address] [place] [address] Telehealth Nurse: Tato Ibarra MD Basophils/100 WBC (Bld) 1 % Normal 0-2 [facility] Comment on above: Performed By: #### O SMO, LD, MG, JESUS, TSHX, LIVP, B12FOL, LACTIC, FT4, BMP #### [place] [address] Telehealth Nurse: Tato Ibarra MD Eosinophils (Bld) [#/Vol] 0.14 10*3/uL Normal 0.00-0.44 [facility] Comment on above: Performed By: #### O SMO, LD, MG, JESUS, TSHX, LIVP, B12FOL, LACTIC, FT4, BMP #### [facility] [employer] [address] [place] [address] Telehealth Nurse: Tato Ibarra MD Eosinophils/100 WBC (Bld) 3 % Normal 1-4 [facility] Comment on above: Performed By: #### O SMO, LD, MG, JESUS, TSHX, LIVP, B12FOL, LACTIC, FT4, BMP #### [facility] [employer] [address] [place] [address] Telehealth Nurse: Tato Ibarra MD Erythrocyte distribution width (RBC) [Ratio] 18.6 % High 11.8-14.4 [facility] Comment on above: Performed By: #### O SMO, LD, MG, JESUS, TSHX, LIVP, B12FOL, LACTIC, FT4, BMP #### [address] [address] Telehealth Nurse: Tato Ibarra MD Hematocrit (Bld) [Volume fraction] 32.5 % Low 36.3-47.1 [facility] Comment on above: Performed By: #### O SMO, LD, MG, JESUS, TSHX, LIVP, B12FOL, LACTIC, FT4, BMP #### [address] [address] Telehealth Nurse: Tato Ibarra MD Hemoglobin (Bld) [Mass/Vol] 10.6 g/dL Low 11.9-15.1 [facility] Comment on above: Performed By: #### O SMO, LD, MG, JESUS, TSHX, LIVP, B12FOL, LACTIC, FT4, BMP #### [address] [address] Telehealth Nurse: Tato Ibarra MD Immature granulocytes/100 WBC (Bld) 0 % Normal 0 [facility] Comment on above: Performed By: #### O SMO, LD, MG, JESUS, TSHX, LIVP, B12FOL, LACTIC, FT4, BMP #### [address] [address] Telehealth Nurse: Tato Ibarra MD Lymphocytes (Bld) [#/Vol] 1.44 10*3/uL Normal 1.10-3.70 [facility] Comment on above: Performed By: #### O SMO, LD, MG, JESUS, TSHX, LIVP, B12FOL, LACTIC, FT4, BMP #### [place] [address] Telehealth Nurse: Tato Ibarra MD Lymphocytes/100 WBC (Bld) 29 % Normal 24-43 [facility] Comment on above: Performed By: #### O SMO, LD, MG, JESUS, TSHX, LIVP, B12FOL, LACTIC, FT4, BMP #### [address] [address] Telehealth Nurse: Tato Ibarra MD MCH (RBC) [Entitic mass] 33.5 pg Normal 25.2-33.5 [facility] Comment on above: Performed By: #### O SMO, LD, MG, JESUS, TSHX, LIVP, B12FOL, LACTIC, FT4, BMP #### [facility] [employer] [address] [place] [address] Telehealth Nurse: Tato Ibarra MD MCHC (RBC) [Mass/Vol] 32.6 g/dL Normal 28.4-34.8 [facility] Comment on above: Performed By: #### O SMO, LD, MG, JESUS, TSHX, LIVP, B12FOL, LACTIC, FT4, BMP #### [address] [address] Telehealth Nurse: Tato Ibarra MD MCV (RBC) [Entitic vol] 102.8 fL Normal 82.6-102.9 [facility] Comment on above: Performed By: #### O SMO, LD, MG, JESUS, TSHX, LIVP, B12FOL, LACTIC, FT4, BMP #### [facility] [employer] [address] [place] [address] Telehealth Nurse: Tato Ibarra MD Monocytes (Bld) [#/Vol] 0.54 10*3/uL Normal 0.10-1.20 [facility] Comment on above: Performed By: #### O SMO, LD, MG, JESUS, TSHX, LIVP, B12FOL, LACTIC, FT4, BMP #### [facility] [employer] [address] [place] [address] Telehealth Nurse: Tato Ibarra MD Monocytes/100 WBC (Bld) 11 % Normal 3-12 [facility] Comment on above: Performed By: #### O SMO, LD, MG, JESUS, TSHX, LIVP, B12FOL, LACTIC, FT4, BMP #### [facility] [employer] [address] [place] [address] Telehealth Nurse: Tato Ibrara MD Neutrophil (Seg) 56 % Normal 36-65 [facility] Comment on above: Performed By: #### O SMO, LD, MG, JESUS, TSHX, LIVP, B12FOL, LACTIC, FT4, BMP #### [address] [address] Telehealth Nurse: Tato Ibarra MD NRBC Automated 0.0 per 100 WBC Normal 0.0 [facility] Comment on above: Performed By: #### O SMO, LD, MG, JESUS, TSHX, LIVP, B12FOL, LACTIC, FT4, BMP #### [address] [phone] Telehealth Nurse: Tato Ibarra MD Platelet mean volume (Bld) [Entitic vol] 9.5 fL Normal 8.1-13.5 [facility] Comment on above: Performed By: #### O SMO, LD, MG, JESUS, TSHX, LIVP, B12FOL, LACTIC, FT4, BMP #### [address] [address] Telehealth Nurse: Tato Ibarra MD Platelets (Bld) [#/Vol] 220 10*3/uL Normal 138-453 [facility] Comment on above: Performed By: #### O SMO, LD, MG, JESUS, TSHX, LIVP, B12FOL, LACTIC, FT4, BMP #### [address] [address] Telehealth Nurse: Tato Ibarra MD RBC (Bld) [#/Vol] 3.16 10*6/uL Low 3.95-5.11 [facility] Comment on above: Performed By: #### O SMO, LD, MG, JESUS, TSHX, LIVP, B12FOL, LACTIC, FT4, BMP #### [address] [address] Telehealth Nurse: Tato Ibarar MD RBC morphology finding Nom (Bld) ANISOCYTOSIS PRESENT Normal [facility] Comment on above: Performed By: #### O SMO, LD, MG, JESUS, TSHX, LIVP, B12FOL, LACTIC, FT4, BMP #### [facility] [address] [place] [address] [phone] Telehealth Nurse: Tato Ibarra MD WBC (Bld) [#/Vol] 4.9 10*3/uL Normal 3.5-11.3 [facility] Comment on above: Performed By: #### O SMO, LD, MG, JESUS, TSHX, LIVP, B12FOL, LACTIC, FT4, BMP #### [facility] [address] [place], [place] [phone] Telehealth Nurse: Tato Ibarra MD CTA Abdominal vessels and Pe lvis vessels WO and W contrast Mustapha 01-01-2024 Radiology Study observation (narrative) [employer] Calcium, Ionicon 01-01-2024 Calcium [Moles/Vol] 1.13 mmol/L Normal 1.13-1.33 [facility] Comment on above: Performed By: #### O SMO, LD, MG, JESUS, TSHX, LIVP, B12FOL, LACTIC, FT4, BMP #### [employer] [address] [place] [address] Telehealth Nurse: Tato Ibarra MD Calcium, Ionizedon 4 Calcium.ionized (Bld) [Moles/Vol] 1.13 mmol/L 1.13 - 1.33 mmol/L [employer] EKG 12 LeadOrdered By: Omar Hoover on 01-01-2024 Atrial Rate 87 BPM [employer] Work Phone: P Saffell 35 degrees [employer] Work Phone: P-R Interval 164 ms [employer] Work Phone: Q-T Interval 412 ms [employer] Work Phone: QRS Duration 82 ms [employer] Work Phone: QTc Calculation (Bazett) 495 ms ZHANNA PERERA [employer] Work Phone: R Saffell 33 degrees ZHANNA PERERA [employer] Work Phone: T Saffell 25 degrees ZHANNA [facility] [employer] Work Phone: Ventricular Rate 87 BPM ZHANNA BELL [employer] Work Phone: ZHANNA PERERA [employer] Work Phone: EKG 12 Leadon 01-01-2024 Normal sinus rhythm Nonspecific ST and T wave abnormality Prolonged QT Abnormal ECG When compared with ECG of 31-DEC-2023 16:00, No significant change was found [facility] STOmar Olivier MD - 01/01/2024 Normal sinus rhythm Nonspecific ST and T wave abnormality Prolonged QT Abnormal ECG When compared with ECG of 31-DEC-2023 16:00, No significant change was found [facility] Fecal Lactoferrinon 01-01-20 Fecal Lactoferrin POSITIVE for fecal lactoferrin, a marker for fecal leukocytes and an indicator Abnormal [employer] [facility] Comment on above: Result Comment: of i ntestinal inflammation. Performed By: #### P TT, PT #### [facility] [employer] [address] [place] [address] [phone] Telehealth Nurse: Tato Ibarra MD Fecal lactoferrinon 01-01-20 Interpretation and review of laboratory results Abnormal [facility] [employer] Lactoferrin Ql (Stl) POSITIVE for fecal lactoferrin, a marker for fecal leukocytes and an indicator of intestinal inflammation. Abnormal NEGATIVE for fecal lactoferrin. [facility] Urban[facility] [employer] Glucose,Whole Bloodon 2023 Glucose [Mass/Vol] 111 mg/dL High 65-105 [facility] Hemoglobin and Hematocriton 01-01-2024 Hematocrit (Bld) [Volume fraction] 24.2 % Low 36.3 - 47.1 % [facility] [employer] Hemoglobin (Bld) [Mass/Vol] 7.7 g/dL Low 11.9 - 15.1 g/dL [facility] [employer] Interpretation and review of laboratory results Abnormal [facility] Hematocrit (Bld) [Volume fraction] DUPLICATE ORDER 36.3 - 47.1 % [facility] Hemoglobin (Bld) [Mass/Vol] DUPLICATE ORDER 11.9 - 15.1 g/dL [facility] Hematocrit (Bld) [Volume fraction] 31.8 % Low 36.3 - 47.1 % [facility] Hemoglobin (Bld) [Mass/Vol] 10.3 g/dL Low 11.9 - 15.1 g/dL [facility] Interpretation and review of laboratory results Abnormal [facility] Hepatic Function Panelon Albumin [Mass/Vol] 2.8 g/dL Low 3.5 - 5.2 g/dL [facility] Albumin/Globulin [Mass ratio] 1.0 {ratio} 1.0 - 2.5 [facility] ALP [Catalytic activity/Vol] 161 U/L High 35 - 104 U/L [facility] ALT [Catalytic activity/Vol] 10 U/L 10 - 35 U/L [facility] AST [Catalytic activity/Vol] 40 U/L High 10 - 35 U/L [facility] Bilirubin [Mass/Vol] 0.3 mg/dL 0.00 - 1.20 mg/ dL [facility] Bilirubin.direct [Mass/Vol] mg/dL 0.0 - 0.2 mg/dL [facility] Bilirubin.indirect [Mass/Vol] Can not be calculated 0.0 - 1.0 mg/dL [facility] Globulin (S) [Mass/Vol] 2.2 g/dL [facility] Protein [Mass/Vol] 5.0 g/dL Low 6.6 - 8.7 g/dL [facility] Hgb/Hcton 01-01-2024 Hematocrit (Bld) [Volume fraction] 24.2 % Low 36.3-47.1 [facility] Comment on above: Performed By: #### O SMO, LD, MG, JESUS, TSHX, LIVP, B12FOL, LACTIC, FT4, BMP #### [facility] [employer] [address] [place] [address] Telehealth Nurse: Tato Ibarra MD Hemoglobin (Bld) [Mass/Vol] 7.7 g/dL Low 11.9-15.1 [facility] Comment on above: Performed By: #### O SMO, LD, MG, JESUS, TSHX, LIVP, B12FOL, LACTIC, FT4, BMP #### [facility] [address] [place] [address] Telehealth Nurse: Tato Ibarra MD Hematocrit DUPLICATE ORDER Normal 36.3-47.1 [facility] Comment on above: Performed By: #### O SMO, LD, MG, JESUS, TSHX, LIVP, B12FOL, LACTIC, FT4, BMP #### [facility] [employer] [address] [place] [address] Telehealth Nurse: Tato Ibarra MD Hemoglobin DUPLICATE ORDER Normal 11.9-15.1 [facility] Comment on above: Performed By: #### O SMO, LD, MG, JESUS, TSHX, LIVP, B12FOL, LACTIC, FT4, BMP #### [facility] [employer] [address] [place] [address] Telehealth Nurse: Tato Ibarra MD Hematocrit (Bld) [Volume fraction] 31.8 % Low 36.3-47.1 [facility] Comment on above: Performed By: #### O SMO, LD, MG, JESUS, TSHX, LIVP, B12FOL, LACTIC, FT4, BMP #### [facility] [employer] [address] [place] [address] Telehealth Nurse: Tato Ibarra MD Hemoglobin (Bld) [Mass/Vol] 10.3 g/dL Low 11.9-15.1 [facility] Comment on above: Performed By: #### O SMO, LD, MG, JESUS, TSHX, LIVP, B12FOL, LACTIC, FT4, BMP #### [address] [address] Telehealth Nurse: Tato Ibarra MD IR EMBOLIZATION HEMORRHAGEon 01-01-2024 Radiology Study observation (narrative) [facility] Lactate, Sepsison 01-01-2024 Lactic Acid, Sepsis, Whole Blood 0.9 mmol/L 0.5 - 1.9 mmol/L [facility] Lactic Acid,Sep Wbld 0.9 mmol/L Normal 0.5-1.9 [facility] Comment on above: Performed By: #### O SMO, LD, MG, JESUS, TSHX, LIVP, B12FOL, LACTIC, FT4, BMP #### [address] [address] Telehealth Nurse: Tato Ibarra MD Liver Profileon 7 Albumin [Mass/Vol] 2.8 g/dL Low 3.5-5.2 [facility] Comment on above: Performed By: #### O SMO, LD, MG, JESUS, TSHX, LIVP, B12FOL, LACTIC, FT4, BMP #### [address] [address] Telehealth Nurse: Tato Ibarra MD Albumin/Glob Ratio 1.0 Normal 1.0-2.5 [facility] Comment on above: Performed By: #### O SMO, LD, MG, JESUS, TSHX, LIVP, B12FOL, LACTIC, FT4, BMP #### [address] [address] Telehealth Nurse: Tato Ibarra MD Alkaline Phos 161 U/L High 35-104 [facility] Comment on above: Performed By: #### O SMO, LD, MG, JESUS, TSHX, LIVP, B12FOL, LACTIC, FT4, BMP #### [address] [address] Telehealth Nurse: Tato Ibarra MD ALT [Catalytic activity/Vol] 10 U/L Normal 10-35 [facility] Comment on above: Performed By: #### O SMO, LD, MG, JESUS, TSHX, LIVP, B12FOL, LACTIC, FT4, BMP #### [address] [address] Telehealth Nurse: Tato Ibarra MD AST [Catalytic activity/Vol] 40 U/L [address] Comment on above: Performed By: #### O SMO, LD, MG, JESUS, TSHX, LIVP, B12FOL, LACTIC, FT4, BMP #### [address] [address] Telehealth Nurse: Tato Ibarra MD Bilirubin [Mass/Vol] 0.3 mg/dL Normal 0.00-1.20 [facility] Comment on above: Performed By: #### O SMO, LD, MG, JESUS, TSHX, LIVP, B12FOL, LACTIC, FT4, BMP #### [address] [address] Telehealth Nurse: Tato Ibarra MD Bilirubin, Indirect Can not be calculated Normal 0.0-1.0 [facility] Comment on above: Performed By: #### O SMO, LD, MG, JEUSS, TSHX, LIVP, B12FOL, LACTIC, FT4, BMP #### [address] [address] Telehealth Nurse: Tato Ibarra MD Bilirubin.indirect [Mass/Vol] mg/dL Normal 0.0-0.2 [facility] Comment on above: Performed By: #### O SMO, LD, MG, JESUS, TSHX, LIVP, B12FOL, LACTIC, FT4, BMP #### [address] [address] Telehealth Nurse: Tato Ibarra MD Globulin (S) [Mass/Vol] 2.2 g/dL Normal [facility] Comment on above: Performed By: #### O SMO, LD, MG, JESUS, TSHX, LIVP, B12FOL, LACTIC, FT4, BMP #### [facility] [address] [place] [address] [phone] Telehealth Nurse: Tato Ibarra MD Protein [Mass/Vol] 5.0 g/dL Low 6.6-8.7 [facility] Comment on above: Performed By: #### O SMO, LD, MG, JESUS, TSHX, LIVP, B12FOL, LACTIC, FT4, BMP #### [facility] [address] [place] [address] [phone] Telehealth Nurse: Tato Ibarra MD MRSA, DNA, Nasalon Specimen Description .NASAL SWAB Normal [facility] Comment on above: Performed By: #### O SMO, LD, MG, JESUS, TSHX, LIVP, B12FOL, LACTIC, FT4, BMP #### [facility] [address] [place] [address] Telehealth Nurse: Tato Ibarra MD Magnesiumon 01-01-2024 Magnesium [Mass/Vol] 2.0 mg/dL 1.6 - 2.6 mg/dL [facility] Magnesium [Mass/Vol] 2.0 mg/dL Normal 1.6-2.6 [facility] Comment on above: Performed By: #### O SMO, LD, MG, JESUS, TSHX, LIVP, B12FOL, LACTIC, FT4, BMP #### [facility] [address] [place] [address] [phone] Telehealth Nurse: Tato Ibarra MD No Panel Informationon 12-31 [facility] [employer] Interpretation and review of laboratory results Abnormal [facility] POC Glucose Fingerstickon Glucose [Mass/Vol] 111 mg/dL High 65 - 105 mg/dL RONAL [employer] [facility] [employer] Interpretation and review of laboratory results Abnormal [facility] mydalaBAYL[facility] [employer] PREVIOUS SPECIMENon 01-01-20 24 [facility] PTon 01-01-2024 INR Coag (PPP) [Relative time] 0.9 {INR} Normal [facility] Comment on above: Result Comment: Therapeutic Range: Moderate Anticoagulant Intensity: INR = 2.0-3.0 High Anticoagulant Intensity: INR = 2.5-3.5 Performed By: #### P TT, PT #### [employer] [address] [place] [address] [phone] Telehealth Nurse: Tato Ibarra MD PT Coag (PPP) [Time] 12.3 s Normal 11.7-14.9 [facility] Comment on above: Performed By: #### P TT, PT #### [facility] [address] [place] [address] [phone] Telehealth Nurse: Tato Ibarra MD Protime-INRon 01-01-2024 INR Coag (PPP) [Relative time] 0.9 {INR} [facility] Comment on above: Therapeutic Range: Moderate Anticoagulant Intensity: INR = 2.0-3.0 High Anticoagulant Intensity: INR = 2.5-3.5 PT Coag (PPP) [Time] 12.3 s [facility] Type + Screenon 01-01-2024 Type + Screen Sample Expiration 01/03/2024,2359 Arm Band Number [id number] ABO/Rh(D) O NEGATIVE Antibody Screen NEGATIVE Unit Number [id number] Blood Component Type Leukocyte Reduced Red Cell Unit Division 00 Status of Unit TRANSFUSED Transfusion Status OK TO TRANSFUSE Crossmatch Result COMPATIBLE Unit Number [id number] Blood Component Type Leukocyte Reduced Red Cell Unit Division 00 Status of Unit TRANSFUSED Transfusion Status OK TO TRANSFUSE Crossmatch Result COMPATIBLE Normal [facility] Comment on above: Performed By: #### P TT, PT #### [employer] [address] [place] [address] [phone] Telehealth Nurse: Tato Ibarra MD APTTon 12-31-2023 aPTT Coag (Bld) [Time] 27.6 s [facility] Comment on above: IV Heparin Therapy Range: 66.0-92.0 sec aPTT Coag (Bld) [Time] 27.6 s Normal 23.0-36.5 [facility] Comment on above: Result Comment: IV Heparin Therapy Range: 66.0-92.0 sec Performed By: #### O SMO, LD, MG, JESUS, TSHX, LIVP, B12FOL, LACTIC, FT4, BMP #### [facility] [address] [place] [address] Telehealth Nurse: Tato Ibarra MD aPTT Coag (Bld) [Time] 27.8 s [facility] Comment on above: IV Heparin Therapy Range: 66.0-92.0 sec aPTT Coag (Bld) [Time] 27.8 s Normal 23.0-36.5 [facility] Comment on above: Result Comment: IV Heparin Therapy Range: 66.0-92.0 sec Performed By: #### O SMO, LD, MG, JESUS, TSHX, LIVP, B12FOL, LACTIC, FT4, BMP #### [facility] [address] [place] [phone] Telehealth Nurse: Tato Ibarra MD B12/Folate Panelon Cobalamin (Vitamin B12) [Mass/Vol] 271 pg/mL Normal 232-1245 [facility] Comment on above: Performed By: #### P TT, PT #### [facility] [address] [place] [address] [phone] Telehealth Nurse: Tato Ibarra MD Folic Acid 5.4 ng/mL Normal 4.8-24.2 [facility] Comment on above: Performed By: #### P TT, PT #### [facility] [address] [place] [address] Telehealth Nurse: Tato Ibarra MD BLOOD BANK SPECIMENon 2023 [facility] Basic Metabolic Panelon Anion gap [Moles/Vol] 10 mmol/L 9 - 16 mmol/L [facility] Calcium [Mass/Vol] 8.5 mg/dL Low 8.6 - 10.4 mg/dL [facility] Chloride [Moles/Vol] 105 mmol/L 98 - 107 mmol/L [facility] CO2 [Moles/Vol] 20 mmol/L 20 - 31 mmol/L [facility] Creatinine [Mass/Vol] 0.4 mg/dL Low 0.50 - 0.90 mg/dL [facility] Est, Glootilia Filt Rate - PINF [facility] Comment on above: These results are [...] [Mass/Vol] 89 mg/dL 74 - 99 mg/dL [facility] Potassium [Moles/Vol] 3.7 mmol/L 3.7 - 5.3 mmol/L [facility] Sodium [Moles/Vol] 135 mmol/L Low 136 - 145 mmol/L [facility] Urea nitrogen [Mass/Vol] 2 mg/dL Low 6 - 20 mg/dL [facility] Basic Metabolic Profon 12-30 Anion gap [Moles/Vol] 10 mmol/L Normal 9-16 [facility] Comment on above: Performed By: #### O SMO, LD, MG, JESUS, TSHX, LIVP, B12FOL, LACTIC, FT4, BMP #### [employer] [address] [place], [place] [phone] Telehealth Nurse: Tato Ibarra MD Calcium [Mass/Vol] 8.5 mg/dL Low 8.6-10.4 [facility] Comment on above: Performed By: #### O SMO, LD, MG, JESUS, TSHX, LIVP, B12FOL, LACTIC, FT4, BMP #### [employer] [address] [place] [address] Telehealth Nurse: Tato Ibarra MD Chloride [Moles/Vol] 105 mmol/L Normal 98-107 [facility] Comment on above: Performed By: #### O SMO, LD, MG, JESUS, TSHX, LIVP, B12FOL, LACTIC, FT4, BMP #### [address] [address] Telehealth Nurse: Tato Ibarra MD CO2 [Moles/Vol] 20 mmol/L Normal 20-31 [facility] Comment on above: Performed By: #### O SMO, LD, MG, JESUS, TSHX, LIVP, B12FOL, LACTIC, FT4, BMP #### [address] [address] Telehealth Nurse: Tato Ibarra MD Creatinine [Mass/Vol] 0.4 mg/dL Low 0.50-0.90 [facility] Comment on above: Performed By: #### O SMO, LD, MG, JESUS, TSHX, LIVP, B12FOL, LACTIC, FT4, BMP #### [address] [address] Telehealth Nurse: Tato Ibarra MD GFR/1.73 sq M.predicted among non-blacks MDRD (S/P/Bld) [Vol rate/Area] mL/min/{1.73_m2} Normal >60 [facility] Comment on above: Result Comment: These [...] TSHX, LIVP, B12FOL, LACTIC, FT4, BMP #### [address] [phone] Telehealth Nurse: Tato Ibarra MD Glucose [Mass/Vol] 89 mg/dL Normal 74-99 [facility] Comment on above: Performed By: #### O SMO, LD, MG, JESUS, TSHX, LIVP, B12FOL, LACTIC, FT4, BMP #### [facility] [address] [place] [address] [phone] Telehealth Nurse: Tato Ibarra MD Potassium [Moles/Vol] 3.7 mmol/L Normal 3.7-5.3 [facility] Comment on above: Performed By: #### O SMO, LD, MG, JESUS, TSHX, LIVP, B12FOL, LACTIC, FT4, BMP #### [facility] [address] [place] [address] [phone] Telehealth Nurse: Tato Ibarra MD Sodium [Moles/Vol] 135 mmol/L Low 136-145 [facility] Comment on above: Performed By: #### O SMO, LD, MG, JESUS, TSHX, LIVP, B12FOL, LACTIC, FT4, BMP #### [facility] [address] [place] [phone] Telehealth Nurse: Tato Ibarra MD Urea nitrogen [Mass/Vol] 2 mg/dL Low 6-20 [facility] Comment on above: Performed By: #### O SMO, LD, MG, JESUS, TSHX, LIVP, B12FOL, LACTIC, FT4, BMP #### [facility] [address] [place] [address] [phone] Telehealth Nurse: Tato Ibarra MD C DIFF TOXIN/ANTIGENon 12-30 C. difficile glutamate dehydrogenase and toxins A+B IA.rapid Ql (Stl) Negative NEGATIVE [facility] Comment on above: No C. difficile anti gen and Toxin Detected. Specimen Description .FECES [facility] C diff Ag + Toxinon 12-31-19 24 C diff Ag + Toxin Negative Normal NEG [facility] Comment on above: Result Comment: No C . difficile antigen and Toxin Detected. Performed By: #### P TT, PT #### [facility] [address] [place], [place] [phone] Telehealth Nurse: Tato Ibarra MD Specimen Description .FECES Normal [facility] Comment on above: Performed By: #### P TT, PT #### [employer] [address] [place], [place] [phone] Telehealth Nurse: Tato Ibarra MD CBC with Auto Differentialon 12-31-2023 Basophils (Bld) [#/Vol] 0.03 10*3/uL [facility] Basophils/100 WBC (Bld) 1 % 0 - 2 % [facility] Eosinophils (Bld) [#/Vol] 0.12 10*3/uL [facility] Eosinophils/100 WBC (Bld) 2 % 1 - 4 % [facility] Erythrocyte distribution width (RBC) [Ratio] 18.8 % High 11.8 - 14.4 % [facility] Hematocrit (Bld) [Volume fraction] 33.2 % Low 36.3 - 47.1 % [facility] Hemoglobin (Bld) [Mass/Vol] 10.9 g/dL Low 11.9 - 15.1 g/dL [facility] Immature granulocytes (Bld) [#/Vol] 0.03 10*3/uL [facility] Immature granulocytes/100 WBC (Bld) 1 % High 0 [facility] Interpretation and review of laboratory results Abnormal [facility] Lymphocytes/100 WBC (Bld) 27 % 24 - 43 % [facility] Lymphocytes/100 WBC (Bld) 1.41 % [facility] MCH (RBC) [Entitic mass] 34.1 pg High 25.2 - 33.5 pg [facility] MCHC (RBC) [Mass/Vol] 32.8 g/dL 28.4 - 34.8 g/dL [facility] MCV (RBC) [Entitic vol] 103.8 fL High 82.6 - 102.9 fL [facility] Monocytes/100 WBC (Bld) 9 % 3 - 12 % [facility] Monocytes/100 WBC (Bld) 0.44 % [facility] Neutrophils/100 WBC (Bld) 60 % 36 - 65 % [facility] Nucleated RBC/100 WBC (Bld) [Ratio] 0.0 % 0.0 per 100 WBC [facility] Platelet mean volume (Bld) [Entitic vol] 9.2 fL 8.1 - 13.5 fL [facility] Platelets (Bld) [#/Vol] 197 10*3/uL [facility] RBC (Bld) [#/Vol] 3.20 10*6/uL Low 3.95 - 5.11 m/uL [facility] RBC (Bld) [#/Vol] ANISOCYTOSIS PRESENT [facility] RBC (Bld) [#/Vol] MACROCYTOSIS PRESENT [facility] Segmented neutrophils/100 WBC (Bld) 3.14 % [facility] WBC other (Bld) [#/Vol] 5.2 [facility] CBC with Diffon 12-31-2023 Abs. Basophil 0.03 k/uL Normal 0.00-0.20 [facility] Comment on above: Performed By: #### O SMO, LD, MG, JESUS, TSHX, LIVP, B12FOL, LACTIC, FT4, BMP #### [facility] [employer] [address] [place], [place] [phone] Telehealth Nurse: Tato Ibarra MD Abs.Imm.Granulocyte 0.03 k/uL Normal 0.00-0.30 [facility] Comment on above: Performed By: #### O SMO, LD, MG, JESUS, TSHX, LIVP, B12FOL, LACTIC, FT4, BMP #### [facility] [employer] [address] [place], [place] [phone] Telehealth Nurse: Tato Ibarra MD Abs.Neutrophil (Seg) 3.14 k/uL Normal 1.50-8.10 [facility] Comment on above: Performed By: #### O SMO, LD, MG, JESUS, TSHX, LIVP, B12FOL, LACTIC, FT4, BMP #### [address] [address] Telehealth Nurse: Tato Ibarra MD Basophils/100 WBC (Bld) 1 % Normal 0-2 [facility] Comment on above: Performed By: #### O SMO, LD, MG, JESUS, TSHX, LIVP, B12FOL, LACTIC, FT4, BMP #### [address] [phone] Telehealth Nurse: Tato Ibarra MD Eosinophils (Bld) [#/Vol] 0.12 10*3/uL Normal 0.00-0.44 [facility] Comment on above: Performed By: #### O SMO, LD, MG, JESUS, TSHX, LIVP, B12FOL, LACTIC, FT4, BMP #### [facility] [employer] [address] [place] [address] Telehealth Nurse: Tato Ibarra MD Eosinophils/100 WBC (Bld) 2 % Normal 1-4 [facility] Comment on above: Performed By: #### O SMO, LD, MG, JESUS, TSHX, LIVP, B12FOL, LACTIC, FT4, BMP #### [facility] [employer] [address] [place] [address] Telehealth Nurse: Tato Ibarra MD Erythrocyte distribution width (RBC) [Ratio] 18.8 % High 11.8-14.4 [facility] Comment on above: Performed By: #### O SMO, LD, MG, JESUS, TSHX, LIVP, B12FOL, LACTIC, FT4, BMP #### [facility] [employer] [address] [place], [place] [phone] Telehealth Nurse: Tato Ibarra MD Hematocrit (Bld) [Volume fraction] 33.2 % Low 36.3-47.1 [facility] Comment on above: Performed By: #### O SMO, LD, MG, JESUS, TSHX, LIVP, B12FOL, LACTIC, FT4, BMP #### [address] [phone] Telehealth Nurse: Tato Ibarra MD Hemoglobin (Bld) [Mass/Vol] 10.9 g/dL Low 11.9-15.1 [facility] Comment on above: Performed By: #### O SMO, LD, MG, JESUS, TSHX, LIVP, B12FOL, LACTIC, FT4, BMP #### [address] [address] Telehealth Nurse: Tato Ibarra MD Immature granulocytes/100 WBC (Bld) 1 % High 0 [facility] Comment on above: Performed By: #### O SMO, LD, MG, JESUS, TSHX, LIVP, B12FOL, LACTIC, FT4, BMP #### [place] [address] Telehealth Nurse: Tato Ibarra MD Lymphocytes (Bld) [#/Vol] 1.41 10*3/uL Normal 1.10-3.70 [facility] Comment on above: Performed By: #### O SMO, LD, MG, JESUS, TSHX, LIVP, B12FOL, LACTIC, FT4, BMP #### [place] [address] Telehealth Nurse: Tato Ibarra MD Lymphocytes/100 WBC (Bld) 27 % Normal 24-43 [facility] Comment on above: Performed By: #### O SMO, LD, MG, JESUS, TSHX, LIVP, B12FOL, LACTIC, FT4, BMP #### [address] [address] Telehealth Nurse: Tato Ibarra MD MCH (RBC) [Entitic mass] 34.1 pg High 25.2-33.5 [facility] Comment on above: Performed By: #### O SMO, LD, MG, JESUS, TSHX, LIVP, B12FOL, LACTIC, FT4, BMP #### [address] [phone] Telehealth Nurse: Tato Ibarra MD MCHC (RBC) [Mass/Vol] 32.8 g/dL Normal 28.4-34.8 [facility] Comment on above: Performed By: #### O SMO, LD, MG, JESUS, TSHX, LIVP, B12FOL, LACTIC, FT4, BMP #### [address] [phone] Telehealth Nurse: Tato Ibarra MD MCV (RBC) [Entitic vol] 103.8 fL High 82.6-102.9 [facility] Comment on above: Performed By: #### O SMO, LD, MG, JESUS, TSHX, LIVP, B12FOL, LACTIC, FT4, BMP #### [address] [phone] Telehealth Nurse: Tato Ibarra MD Monocytes (Bld) [#/Vol] 0.44 10*3/uL Normal 0.10-1.20 [facility] Comment on above: Performed By: #### O SMO, LD, MG, JESUS, TSHX, LIVP, B12FOL, LACTIC, FT4, BMP #### [address] [phone] Telehealth Nurse: Tato Ibarra MD Monocytes/100 WBC (Bld) 9 % Normal 3-12 [facility] Comment on above: Performed By: #### O SMO, LD, MG, JESUS, TSHX, LIVP, B12FOL, LACTIC, FT4, BMP #### [address] [phone] Telehealth Nurse: Tato Ibarra MD Neutrophil (Seg) 60 % Normal 36-65 [facility] Comment on above: Performed By: #### O SMO, LD, MG, JESUS, TSHX, LIVP, B12FOL, LACTIC, FT4, BMP #### [address] [address] Telehealth Nurse: Tato Ibarra MD NRBC Automated 0.0 per 100 WBC Normal 0.0 [facility] Comment on above: Performed By: #### O SMO, LD, MG, JESUS, TSHX, LIVP, B12FOL, LACTIC, FT4, BMP #### [address] [address] Telehealth Nurse: Tato Ibarra MD Platelet mean volume (Bld) [Entitic vol] 9.2 fL Normal 8.1-13.5 [facility] Comment on above: Performed By: #### O SMO, LD, MG, JESUS, TSHX, LIVP, B12FOL, LACTIC, FT4, BMP #### [address] [address] Telehealth Nurse: Tato Ibarra MD Platelets (Bld) [#/Vol] 197 10*3/uL Normal 138-453 [facility] Comment on above: Performed By: #### O SMO, LD, MG, JESUS, TSHX, LIVP, B12FOL, LACTIC, FT4, BMP #### [address] [address] Telehealth Nurse: Tato Ibarra MD RBC (Bld) [#/Vol] 3.20 10*6/uL Low 3.95-5.11 [facility] Comment on above: Performed By: #### O SMO, LD, MG, JESUS, TSHX, LIVP, B12FOL, LACTIC, FT4, BMP #### [address] [address] Telehealth Nurse: Tato Ibarra MD RBC morphology finding Nom (Bld) ANISOCYTOSIS PRESENT Normal [facility] Comment on above: Result Comment: MACR OCYTOSIS PRESENT Performed By: #### O SMO, LD, MG, JESUS, TSHX, LIVP, B12FOL, LACTIC, FT4, BMP #### [employer] [address] [place], [place] [phone] Telehealth Nurse: Tato Ibarra MD WBC (Bld) [#/Vol] 5.2 10*3/uL Normal 3.5-11.3 [facility] Comment on above: Performed By: #### O SMO, LD, MG, JESUS, TSHX, LIVP, B12FOL, LACTIC, FT4, BMP #### [facility] [address] [place], [place] [phone] Telehealth Nurse: Tato Ibarra MD CREATININE, RANDOM URINEon 0 12-31-2023 Creatinine (U) [Mass/Vol] 27.0 mg/dL Low 28.0 - 217.0 mg/dL [facility] Interpretation and review of laboratory results Abnormal [facility] Calcium, Ionicon 12-31-2023 Calcium [Moles/Vol] 1.23 mmol/L Normal 1.13-1.33 [facility] Comment on above: Performed By: #### O SMO, LD, MG, JESUS, TSHX, LIVP, B12FOL, LACTIC, FT4, BMP #### [employer] [address] [place] [address] Telehealth Nurse: Tato Ibarra MD Calcium, Ionizedon Calcium.ionized (Bld) [Moles/Vol] 1.23 mmol/L 1.13 - 1.33 mmol/L [facility] Cardiac echo study Procedure on 12-31-2023 Ao Root Index 1.69 cm/m2 [facility] Aortic Root 3.3 cm [facility] AR Max Velocity PISA 3.1 m/s [facility] AR PHT 894.0 ms [facility] Ascending Aorta 4.1 cm [facility] Ascending Aorta Index 2.10 cm/m2 [facility] AV Area by Peak Velocity 2.5 cm2 [facility] AV Area by VTI 2.[address] [facility] AV Mean Gradient 5 mmHg [facility] AV Mean Velocity 1.1 m/s [facility] AV Peak Gradient 11 mmHg [facility] AV Peak Velocity 1.6 m/s [facility] AV Velocity Ratio 0.69 [facility] AV VTI 32.0 cm [facility] SHANNA/BSA Peak Velocity 1.3 cm2/m2 [facility] SHANNA/BSA VTI 1.4 cm2/m2 [facility] Body surface area Derived from formula 1.99 m2 [facility] E/E' Lateral 10.00 [facility] E/E' Ratio (Averaged) 14.00 [facility] [employer] [facility] E/E' Septal 18.00 [facility] [employer] [facility] Est. RA Pressure 3 mmHg [facility] [employer] [facility] Fractional Shortening 2D 31 % 28 - 44 % [facility] [employer] [facility] Interpretation and review of laboratory results Abnormal [facility] [employer] [facility] IVC Proxmal 1.8 cm [facility] [employer] [facility] IVSd 1.1 cm 0.6 - 0.9 cm [facility] [employer] [facility] [place] Area 2C 19.7 cm2 [facility] Area 4C 17.3 cm2 [facility] [place] Diameter 4.8 cm [facility] Major Saffell 4.4 cm [facility] Minor Saffell 4.6 cm [facility] Size Index 2.46 cm/m2 [facility] Volume BP 62 mL 22 - 52 mL [facility] Volume Index BP 32 ml/m2 16 - 34 ml/m2 [facility] Volume Index MOD A2C 34 ml/m2 16 - 34 ml/m2 [facility] Volume Index MOD A4C 28 ml/m2 16 - 34 ml/m2 [facility] Volume MOD A2C 66 mL 22 - 52 mL [facility] [employer] [facility] [place] Volume MOD A4C 55 mL 22 - 52 mL [facility] LA/AO Root Ratio 1.45 [facility] [employer] [facility] LV E' Lateral Velocity 9 cm/s [facility] E' Septal Velocity 5 cm/s [facility] [employer] [facility] LV EDV A2C 70 mL [facility] [employer] [facility] LV EDV A4C 123 mL [facility] EDV Index A2C 36 mL/m2 [facility] [employer] [facility] LV EDV Index A4C 63 mL/m2 [facility] [employer] [facility] LV Ejection Fraction A2C 47 % [facility] Ejection Fraction A4C 57 % [facility] LV ESV A2C 37 mL [facility] LV ESV A4C 53 mL [facility] LV ESV Index A2C 19 mL/m2 [facility] [employer] [facility] LV ESV Index A4C 27 mL/m2 [facility] [employer] [facility] LV Mass 2D 194.0 g Abnormal 67 - 162 g [facility] LV Mass 2D Index 99.5 g/m2 43 - 95 g/m2 [facility] [employer] LV RWT Ratio 0.46 [facility] LVIDd 4.8 cm 3.9 - 5.3 cm [facility] LVIDd Index 2.46 cm/m2 [facility] LVIDs 3.3 cm [facility] LVIDs Index 1.69 cm/m2 [facility] [employer] LVOT Area 3.8 cm2 [facility] [employer] LVOT Diameter 2.2 cm [facility] [employer] LVOT Mean Gradient 2 mmHg [facility] LVOT Peak Gradient 4 mmHg [facility]ALTH LVOT Peak Velocity 1.1 m/s [facility]ALTH LVOT Stroke Volume Index 44.6 mL/m2 [facility] LVOT SV 87.0 ml [facility] [employer] LVOT VTI 22.9 cm [facility] [employer] LVOT:AV VTI Index 0.72 [facility] [employer] LVPWd 1.1 cm 0.6 - 0.9 cm [facility] [employer] [facility] MV A Velocity 0.42 m/s [facility] [employer] [facility] MV E Velocity 0.90 m/s [facility] [employer] MV E Wave Deceleration Time 64.0 ms [facility] [employer] MV E/A 2.14 [facility] [employer] RV Free Wall Peak S' 7 cm/s [facility] [employer] RVSP 26 mmHg [facility] [employer] TR Max Velocity 2.40 m/s [facility] TR Peak Gradient 23 mmHg [facility] Left Ventricle: Normal left ventricular systolic [...] Doppler was performed. No contrast was given. [facility] CV CPACS [facility] Radiology Study observation (narrative) [facility] Creatinine,Random Uron 12-30 Creatinine [Mass/Vol] 27.0 mg/dL Low 28.0-217.0 [facility] Comment on above: Performed By: #### O SMO, LD, MG, JESUS, TSHX, LIVP, B12FOL, LACTIC, FT4, BMP #### [facility] [address] [phone] Telehealth Nurse: Tato Ibarra MD Gastrointestinal Panel, [facility] 12-31-2023 Campylobacter sp DNA GOMEZ+probe Nom (Unsp spec) NEGATIVE: No Campylobacter spp. (jejuni or coli) DNA Detected NEGATIVE: No Campylobacter spp. (jejuni or coli) DNA Detecte [facility] E. coli enterotoxigenic eltA+estB genes GOMEZ+probe Ql (Stl) NEGATIVE: No Enterotoxigenic E. coli (ETEC) Heat-labile and heat-stable (LT/ST) DNA Detected NEGATIVE: No Enterotoxigenic E. coli (ETEC) Heat-labile and [facility] P. shigelloides DNA GOMEZ+probe Ql (Stl) Negative NEGATIVE: No Plesionomas shigelloides DNA Detected [facility] Salmonella sp DNA GOMEZ+probe Ql (Unsp spec) Negative NEGATIVE: No Salmonella spp. DNA Detected [facility] Shiga toxin stx gene GOMEZ+probe Nom (Unsp spec) Negative NEGATIVE: No Shiga toxin-producing gene(s) Detected [facility] Shigella sp DNA GOMEZ+probe Ql (Unsp spec) Negative NEGATIVE: No Shigella spp. / EIEC DNA Detected [facility] Specimen Description .FECES [facility] V. cholerae+parahaemoly ticus rfbL+trkH+tnaA genes GOMEZ+probe Ql (Stl) NEGATIVE: No Vibrio (V. vulnificus, V, parahaemolyticus and V. cholerae) DNA Detected NEGATIVE: No Vibrio (V. vulnificus, V, parahaemolyticus and [facility] Y. enterocolitica recN gene GOMEZ+probe Ql (Stl) Negative NEGATIVE: No Yersinia enterocolitica DNA Detected [facility] Hemoglobin and Hematocriton 12-31-2023 Hematocrit (Bld) [Volume fraction] 34.6 % Low 36.3 - 47.1 % [facility] Hemoglobin (Bld) [Mass/Vol] 11.3 g/dL Low 11.9 - 15.1 g/dL [facility] Interpretation and review of laboratory results Abnormal [facility] Hematocrit (Bld) [Volume fraction] 33.1 % Low 36.3 - 47.1 % [facility] Hemoglobin (Bld) [Mass/Vol] 10.8 g/dL Low 11.9 - 15.1 g/dL [facility] Interpretation and review of laboratory results Abnormal [facility] Hematocrit (Bld) [Volume fraction] 33.1 % Low 36.3 - 47.1 % [facility] Hemoglobin (Bld) [Mass/Vol] 11.2 g/dL Low 11.9 - 15.1 g/dL [facility] Interpretation and review of laboratory results Abnormal [facility] Hematocrit (Bld) [Volume fraction] 34.0 % Low 36.3 - 47.1 % [facility] Hemoglobin (Bld) [Mass/Vol] 11.1 g/dL Low 11.9 - 15.1 g/dL [facility] Interpretation and review of laboratory results Abnormal [facility] Hepatic Function Panelon Albumin [Mass/Vol] 3.0 g/dL Low 3.5 - 5.2 g/dL [facility] Albumin/Globulin [Mass ratio] 1.0 {ratio} 1.0 - 2.5 [facility] ALP [Catalytic activity/Vol] 174 U/L High 35 - 104 U/L [facility] ALT [Catalytic activity/Vol] 13 U/L 10 - 35 U/L [facility] AST [Catalytic activity/Vol] 47 U/L High 10 - 35 U/L [facility] Bilirubin [Mass/Vol] 0.4 mg/dL 0.00 - 1.20 mg/ dL [facility] Bilirubin.direct [Mass/Vol] 0.2 mg/dL 0.0 - 0.2 mg/dL [facility] Bilirubin.indirect [Mass/Vol] 0.2 mg/dL 0.0 - 1.0 mg/dL [facility] Globulin (S) [Mass/Vol] 2.2 g/dL [facility] Protein [Mass/Vol] 5.2 g/dL Low 6.6 - 8.7 g/dL [facility]Hct[facility] 12-31-2023 Hematocrit (Bld) [Volume fraction] 34.6 % Low 36.3-47.1 [facility] Comment on above: Performed By: #### O SMO, LD, MG, JESUS, TSHX, LIVP, B12FOL, LACTIC, FT4, BMP #### [facility] [address] [place] [phone] Telehealth Nurse: Tato Ibarra MD Hemoglobin (Bld) [Mass/Vol] 11.3 g/dL Low 11.9-15.1 [facility] Comment on above: Performed By: #### O SMO, LD, MG, JESUS, TSHX, LIVP, B12FOL, LACTIC, FT4, BMP #### [facility] [employer] [address] [place], [place] [phone] Telehealth Nurse: Tato Ibarra MD Hematocrit (Bld) [Volume fraction] 33.1 % Low 36.3-47.1 [facility] Comment on above: Performed By: #### O SMO, LD, MG, JESUS, TSHX, LIVP, B12FOL, LACTIC, FT4, BMP #### [facility] [employer] [address] [place], [place] [phone] Telehealth Nurse: aTto Ibarra MD Hemoglobin (Bld) [Mass/Vol] 10.8 g/dL Low 11.9-15.1 [facility] Comment on above: Performed By: #### O SMO, LD, MG, JESUS, TSHX, LIVP, B12FOL, LACTIC, FT4, BMP #### [facility] [employer] [address] [place] [address] Telehealth Nurse: Tato Ibarra MD Hematocrit (Bld) [Volume fraction] 33.1 % Low 36.3-47.1 [facility] Comment on above: Performed By: #### P TT, PT #### [employer] [address] Telehealth Nurse: Tato Ibarra MD Hemoglobin (Bld) [Mass/Vol] 11.2 g/dL Low 11.9-15.1 [facility] Comment on above: Performed By: #### P TT, PT #### [address] [address] Telehealth Nurse: Tato Ibarra MD Hematocrit (Bld) [Volume fraction] 34.0 % Low 36.3-47.1 [facility] Comment on above: Performed By: #### P TT, PT #### [address] [address] Telehealth Nurse: Tato Ibarra MD Hemoglobin (Bld) [Mass/Vol] 11.1 g/dL Low 11.9-15.1 [facility] Comment on above: Performed By: #### P TT, PT #### [address] [address] Telehealth Nurse: Tato Ibarra MD Iron Binding Cap.on 12-31-19 24 % Fe Saturation 11 % Low 20-55 [facility] Comment on above: Performed By: #### O SMO, LD, MG, JESUS, TSHX, LIVP, B12FOL, LACTIC, FT4, BMP #### [address] [address] Telehealth Nurse: Tato Ibarra MD Iron [Mass/Vol] 24 ug/dL Low 37-145 [facility] Comment on above: Performed By: #### O SMO, LD, MG, JESUS, TSHX, LIVP, B12FOL, LACTIC, FT4, BMP #### [address] [address] Telehealth Nurse: Tato Ibarra MD Total Fe Binding Cap 213 ug/dL Low 250-450 [facility] Comment on above: Performed By: #### O SMO, LD, MG, JESUS, TSHX, LIVP, B12FOL, LACTIC, FT4, BMP #### [employer] [facility] [place] [address] Telehealth Nurse: Tato Ibarra MD Unbound Fe Bind Cap 189 ug/dL Normal 112-347 [facility] Comment on above: Performed By: #### O SMO, LD, MG, JESUS, TSHX, LIVP, B12FOL, LACTIC, FT4, BMP #### [employer] [address] [place] [address] [phone] Telehealth Nurse: Tato Ibarra MD Iron and TIBCon 12-31-2023 Interpretation and review of laboratory results Abnormal [facility] Iron [Mass/Vol] 24 ug/dL Low 37 - 145 ug/dL [facility] Iron binding capacity [Mass/Vol] 213 ug/dL Low 250 - 450 ug/dL [facility] Iron saturation [Mass fraction] 11 % Low 20 - 55 % [facility] UIBC 189 ug/dL 112 - 347 ug/dL [facility] Lactate Dehydrogenaseon LDH [Catalytic activity/Vol] 168 U/L 135 - 214 U/L [facility] LDH [Catalytic activity/Vol] 168 U/L Normal 135-214 [facility] Comment on above: Performed By: #### O SMO, LD, MG, JESUS, TSHX, LIVP, B12FOL, LACTIC, FT4, BMP #### [employer] [facility] [place], [place] [phone] Telehealth Nurse: Tato Ibarra MD Lactic Acidon 12-31-2023 Lactic Acid, Whole Blood 1.0 mmol/L 0.7 - 2.1 mmol/L [facility] Lactic Acid,Whole Bl 1.0 mmol/L Normal 0.7-2.1 [facility] Comment on above: Performed By: #### O SMO, LD, MG, JESUS, TSHX, LIVP, B12FOL, LACTIC, FT4, BMP #### [employer] [address] [place] [address] Telehealth Nurse: Tato Ibarra MD Liver Profileon 12-31-2023 Albumin [Mass/Vol] 3.0 g/dL Low 3.5-5.2 [facility] Comment on above: Performed By: #### O SMO, LD, MG, JESUS, TSHX, LIVP, B12FOL, LACTIC, FT4, BMP #### [facility] [address] [place] [address] Telehealth Nurse: Tato Ibarra MD Albumin/Glob Ratio 1.0 Normal 1.0-2.5 [facility] Comment on above: Performed By: #### O SMO, LD, MG, JESUS, TSHX, LIVP, B12FOL, LACTIC, FT4, BMP #### [address] [address] Telehealth Nurse: Tato Ibarra MD Alkaline Phos 174 U/L High 35-104 [facility] Comment on above: Performed By: #### O SMO, LD, MG, JESUS, TSHX, LIVP, B12FOL, LACTIC, FT4, BMP #### [address] [address] Telehealth Nurse: Tato Ibarra MD ALT [Catalytic activity/Vol] 13 U/L Normal 10-35 [facility] Comment on above: Performed By: #### O SMO, LD, MG, JESUS, TSHX, LIVP, B12FOL, LACTIC, FT4, BMP #### [facility] [address] [place] [address] Telehealth Nurse: Tato Ibarra MD AST [Catalytic activity/Vol] 47 U/L High 10-35 [facility] Comment on above: Performed By: #### O SMO, LD, MG, JESUS, TSHX, LIVP, B12FOL, LACTIC, FT4, BMP #### [facility] [address] [place] [phone] Telehealth Nurse: Tato Ibarra MD Bilirubin [Mass/Vol] 0.4 mg/dL Normal 0.00-1.20 [facility] Comment on above: Performed By: #### O SMO, LD, MG, JESUS, TSHX, LIVP, B12FOL, LACTIC, FT4, BMP #### [facility] [address] [place] [address] Telehealth Nurse: Tato Ibarra MD Bilirubin, Indirect 0.2 mg/dL Normal 0.0-1.0 [facility] Comment on above: Performed By: #### O SMO, LD, MG, JESUS, TSHX, LIVP, B12FOL, LACTIC, FT4, BMP #### [facility] [employer] [address] [place] [address] Telehealth Nurse: Tato Ibarra MD Bilirubin.indirect [Mass/Vol] 0.2 mg/dL Normal 0.0-0.2 [facility] Comment on above: Performed By: #### O SMO, LD, MG, JESUS, TSHX, LIVP, B12FOL, LACTIC, FT4, BMP #### [facility] [employer] [address] [place] [address] Telehealth Nurse: Tato Ibarra MD Globulin (S) [Mass/Vol] 2.2 g/dL Normal [facility] Comment on above: Performed By: #### O SMO, LD, MG, JESUS, TSHX, LIVP, B12FOL, LACTIC, FT4, BMP #### [facility] [address] [place] [address] [id number] Telehealth Nurse: Tato Ibarra MD Protein [Mass/Vol] 5.2 g/dL Low 6.6-8.7 [facility] Comment on above: Performed By: #### O SMO, LD, MG, JESUS, TSHX, LIVP, B12FOL, LACTIC, FT4, BMP #### [facility] [address] [place] [id number] [id number] Telehealth Nurse: Tato Ibarra MD Magnesiumon 12-31-2023 Magnesium [Mass/Vol] 1.9 mg/dL 1.6 - 2.6 mg/dL [facility] Magnesium [Mass/Vol] 1.9 mg/dL Normal 1.6-2.6 [facility] Comment on above: Performed By: #### O SMO, LD, MG, JESUS, TSHX, LIVP, B12FOL, LACTIC, FT4, BMP #### [facility] [address] [place] [address] [id number] Telehealth Nurse: Tato Ibarra MD No Panel Informationon 12-30 [facility] Interpretation and review of laboratory results Abnormal [facility] Osmolalityon 12-31-2023 Osmolality [Osmolality] 278 mosm/kg [facility] Osmolality [Osmolality] 278 mosm/kg Normal 275-295 [facility] Comment on above: Performed By: #### O SMO, LD, MG, JESUS, TSHX, LIVP, B12FOL, LACTIC, FT4, BMP #### [facility] [address] [place] [id number] Telehealth Nurse: Tato Ibarra MD PTon 12-31-2023 INR Coag (PPP) [Relative time] 0.9 {INR} Normal [facility] Comment on above: Result Comment: Therapeutic Range: Moderate Anticoagulant Intensity: INR = 2.0-3.0 High Anticoagulant Intensity: INR = 2.5-3.5 Performed By: #### O SMO, LD, MG, JESUS, TSHX, LIVP, B12FOL, LACTIC, FT4, BMP #### [facility] [address] [place] [phone] Telehealth Nurse: Tato Ibarra MD PT Coag (PPP) [Time] 11.9 s Normal 11.7-14.9 [facility] Comment on above: Performed By: #### O SMO, LD, MG, JESUS, TSHX, LIVP, B12FOL, LACTIC, FT4, BMP #### [employer] [address] [place] [phone] Telehealth Nurse: Tato Ibarra MD INR Coag (PPP) [Relative time] 0.9 {INR} Normal [facility] Comment on above: Result Comment: Therapeutic Range: Moderate Anticoagulant Intensity: INR = 2.0-3.0 High Anticoagulant Intensity: INR = 2.5-3.5 Performed By: #### O SMO, LD, MG, JESUS, TSHX, LIVP, B12FOL, LACTIC, FT4, BMP #### [employer] [address] [place] [phone] Telehealth Nurse: Tato Ibarra MD PT Coag (PPP) [Time] 11.8 s Normal 11.7-14.9 [facility] Comment on above: Performed By: #### O SMO, LD, MG, JESUS, TSHX, LIVP, B12FOL, LACTIC, FT4, BMP #### [employer] [address] [place] [phone] Telehealth Nurse: Tato Ibarra MD Phosphoruson 12-31-2023 Phosphate [Mass/Vol] 3.7 mg/dL 2.5 - 4.5 mg/dL [facility] Phosphorus, Inorg.on 024 Phosphorus, Inorg. 3.7 mg/dL Normal 2.5-4.5 [facility] Comment on above: Performed By: #### O SMO, LD, MG, JESUS, TSHX, LIVP, B12FOL, LACTIC, FT4, BMP #### [employer] [address] [place] [phone] Telehealth Nurse: Tato Ibarra MD Protime-INRon 12-31-2023 INR Coag (PPP) [Relative time] 0.9 {INR} [facility] Comment on above: Therapeutic Range: Moderate Anticoagulant Intensity: INR = 2.0-3.0 High Anticoagulant Intensity: INR = 2.5-3.5 PT Coag (PPP) [Time] 11.9 s [facility] INR Coag (PPP) [Relative time] 0.9 {INR} [facility] Comment on above: Therapeutic Range: Moderate Anticoagulant Intensity: INR = 2.0-3.0 High Anticoagulant Intensity: INR = 2.5-3.5 PT Coag (PPP) [Time] 11.8 s [facility] SODIUM, URINE, RANDOMon Sodium (U) [Moles/Vol] 121 mmol/L [facility] Comment on above: No normal range esta blished. Sodium, Random Uron 12-31-19 Sodium (U) [Moles/Vol] 121 mmol/L Normal [facility] Comment on above: Result Comment: No n ormal range established. Performed By: #### O SMO, LD, MG, JESUS, TSHX, LIVP, B12FOL, LACTIC, FT4, BMP #### [facility] [address] [place] [phone] Telehealth Nurse: Tato Ibarra MD Stool PCR Batteryon 12-31-19 Campylobacter sp PCR NEGATIVE: No Campylobacter spp. (jejuni or coli) DNA Detected Normal CAMNEG [facility] Comment on above: Performed By: #### P TT, PT #### [facility] [address] [place] [address] [phone] Telehealth Nurse: Tato Ibarra MD E coli enterotox PCR NEGATIVE: No Enterotoxigenic E. coli (ETEC) Heat-labile and heat-stable (LT/ST) Normal EECNEG [facility] Comment on above: Result Comment: DNA Detected Performed By: #### P TT, PT #### [facility] [address] [place] [phone] Telehealth Nurse: Tato Ibarra MD Plesiomonas sp PCR Negative [facility] Comment on above: Performed By: #### P TT, PT #### [employer] [address] [place] [address] [phone] Telehealth Nurse: Tato Ibarra MD Salmonella sp PCR Negative Normal SALNEG [facility] Comment on above: Performed By: #### P TT, PT #### [address] [address] Telehealth Nurse: Tato Ibarra MD Shigatoxin gene PCR Negative Normal STXNEG [facility] Comment on above: Performed By: #### P TT, PT #### [address] [address] Telehealth Nurse: Tato Ibarra MD Shigella sp PCR Negative Normal SHINEG [facility] Comment on above: Performed By: #### P TT, PT #### [address] [address] Telehealth Nurse: Tato Ibarra MD Vibrio sp PCR NEGATIVE: No Vibrio (V. vulnificus, V, parahaemolyticus and V. cholerae) DNA Normal VIBNEG [facility] Comment on above: Result Comment: Dete cted Performed By: #### P TT, PT #### [address] [address] Telehealth Nurse: Tato Ibarra MD Yersinia gene PCR Negative Normal YERNEG [facility] Comment on above: Performed By: #### P TT, PT #### [address] [address] Telehealth Nurse: Tato Ibarra MD T4, Freeon 12-31-2023 Free T4 [Mass/Vol] 0.8 ng/dL Low 0.92 - 1.68 ng/dL [facility] Interpretation and review of laboratory results Abnormal [facility] TSH w/reflex to FT4on 2023 Thyroid Stim. Horm. 6.81 uIU/mL High 0.27-4.20 [facility] Comment on above: Performed By: #### O SMO, LD, MG, EJSUS, TSHX, LIVP, B12FOL, LACTIC, FT4, BMP #### [address] [address] Telehealth Nurse: Tato Ibarra MD TSH with Reflexon 12-31-2023 TSH Qn 6.81 m[IU]/L High [facility] Thyroxine, Freeon 12-31-2023 Thyroxine, Free 0.8 ng/dL Low 0.92-1.68 [facility] Comment on above: Performed By: #### P TT, PT #### [address] [address] Telehealth Nurse: Tato Ibarra MD UA w/Reflex Cultureon 2023 Bilirubin, SemiQt,Ur Negative Normal NEG [facility] Comment on above: Performed By: #### O SMO, LD, MG, JESUS, TSHX, LIVP, B12FOL, LACTIC, FT4, BMP #### [address] [address] Telehealth Nurse: Tato Ibarra MD Blood, Urine Negative Normal NEG [facility] Comment on above: Performed By: #### O SMO, LD, MG, JESUS, TSHX, LIVP, B12FOL, LACTIC, FT4, BMP #### [address] [address] Telehealth Nurse: Tato Ibarra MD Clarity (U) Clear Normal CLEAR [facility] Comment on above: Performed By: #### O SMO, LD, MG, JESUS, TSHX, LIVP, B12FOL, LACTIC, FT4, BMP #### [address] [address] Telehealth Nurse: Tato Ibarra MD Color (U) Yellow Normal YEL [facility] Comment on above: Performed By: #### O SMO, LD, MG, JESUS, TSHX, LIVP, B12FOL, LACTIC, FT4, BMP #### [address] [place] [address] Telehealth Nurse: Tato Ibarra MD Comment Microscopic exam not performed based on chemical results unless requested in Normal [facility] Comment on above: Result Comment: orig inal order. Performed By: #### O SMO, LD, MG, JESUS, TSHX, LIVP, B12FOL, LACTIC, FT4, BMP #### [facility] [address] [place] [phone] Telehealth Nurse: Tato Ibarra MD Glucose Ql (U) Negative Normal NEG [facility] Comment on above: Performed By: #### O SMO, LD, MG, JESUS, TSHX, LIVP, B12FOL, LACTIC, FT4, BMP #### [facility] [address] [place] [phone] Telehealth Nurse: Tato Ibarra MD Ketones Ql (U) Negative Normal NEG [facility] Comment on above: Performed By: #### O SMO, LD, MG, JESUS, TSHX, LIVP, B12FOL, LACTIC, FT4, BMP #### [facility] [address] [place] [phone] Telehealth Nurse: Tato Ibarra MD Leukocyte esterase Test strip Ql (U) Negative Normal NEG [facility] Comment on above: Performed By: #### O SMO, LD, MG, JESUS, TSHX, LIVP, B12FOL, LACTIC, FT4, BMP #### [facility] [address] [place] [address] Telehealth Nurse: Tato Ibarra MD Nitrite,Ur Negative Normal NEG [facility] Comment on above: Performed By: #### O SMO, LD, MG, JESUS, TSHX, LIVP, B12FOL, LACTIC, FT4, BMP #### [facility] [address] [place] [phone] Telehealth Nurse: Tato Ibarra MD PH,Ur 5.5 Normal 5.0-8.0 [facility] Comment on above: Performed By: #### O SMO, LD, MG, JESUS, TSHX, LIVP, B12FOL, LACTIC, FT4, BMP #### [facility] [address] [place] [phone] Telehealth Nurse: Tato Ibarra MD Protein Ql (U) Negative Normal NEG [facility] Comment on above: Performed By: #### O SMO, LD, MG, JESUS, TSHX, LIVP, B12FOL, LACTIC, FT4, BMP #### [facility] [address] [place] [address] [phone] Telehealth Nurse: Tato Ibarra MD Spec. [place],Ur 1.007 Normal 1.005-1.030 [facility] Comment on above: Performed By: #### O SMO, LD, MG, JESUS, TSHX, LIVP, B12FOL, LACTIC, FT4, BMP #### [facility] [address] [place] [address] [phone] Telehealth Nurse: Tato Ibarra MD Urobilinogen,Ur Normal Normal 0.0-1.0 [facility] Comment on above: Performed By: #### O SMO, LD, MG, JESUS, TSHX, LIVP, B12FOL, LACTIC, FT4, BMP #### [facility] [address] [place] [phone] Telehealth Nurse: Tato Ibarra MD Urinalysis with Reflex to Cu ltureon 12-31-2023 Bilirubin Ql (U) Negative NEGATIVE [facility] [employer] Clarity (U) Clear Clear [facility] Color (U) Yellow Yellow [employer] [facility] [facility] Comment Microscopic exam not performed based on chemical results unless requested in original order. [facility] [employer] Glucose Test strip (U) [Mass/Vol] Negative NEGATIVE mg/dL [facility] Hemoglobin Auto test strip Ql (U) Negative NEGATIVE [facility] Ketones (U) [Mass/Vol] Negative NEGATIVE mg/dL [facility] Leukocyte esterase Test strip Ql (U) Negative NEGATIVE [facility] [facility] Nitrite Ql (U) Negative NEGATIVE [facility] pH (U) 5.5 [pH] 5.0 - 8.0 [facility] Protein (U) [Mass/Vol] Negative NEGATIVE mg/dL [facility] Specific gravity (U) [Rel density] 1.007 1.005 - 1.030 [facility] Urobilinogen Qn (U) Normal 0.0 - 1.0 EU/dL [facility] Vitamin B12 & Folateon 12-30 Cobalamin (Vitamin B12) [Mass/Vol] 271 pg/mL 232 - 1245 pg/mL [facility] Folate [Mass/Vol] 5.4 ng/mL 4.8 - 24.2 ng/mL B ON [facility] Basophils Auto (Bld) [#/Vol] on 12-30-2023 Basophils (Bld) [#/Vol] 0.0 10 3/uL 0.0-0.1 [facility] Basophils/100 WBC Auto (Bld) on 12-30-2023 Basophils/100 WBC (Bld) 0.7 % 0.2-2.0 [facility] Eosinophils/100 WBC Auto (Bl d)on 12-30-2023 Eosinophils/100 WBC (Bld) 2.7 % 0.9-7.0 [facility] Erythrocyte distribution wid th Auto (RBC) [Ratio]on 12-30-2023 Erythrocyte distribution width (RBC) [Ratio] 15.0 % 11.0-15.0 [facility] Estimated glomerular filtrat ion rate (GFR) non- Americanon 12-30-2023 GFR/1.73 sq M.predicted among non-blacks MDRD (S/P/Bld) [Vol rate/Area] mL/min/{1.73_m2} >=60 [facility] Globulin Calc (S) [Mass/Vol] on 12-30-2023 Globulin (S) [Mass/Vol] 2.6 g/dL [facility] Hematocrit Auto (Bld) [Volum e fraction]on 12-30-2023 Hematocrit (Bld) [Volume fraction] 35.2 % Low 36.0-48.0 [facility] Hemoglobin [Mass/volume] in Bloodon 12-30-2023 Hemoglobin (Bld) [Mass/Vol] 11.8 g/dL Low 12.0-16.0 [facility] Hemoglobin and Hematocriton 12-30-2023 Hematocrit (Bld) [Volume fraction] 34.2 % Low 36.3 - 47.1 % [facility] Hemoglobin (Bld) [Mass/Vol] 11.0 g/dL Low 11.9 - 15.1 g/dL [facility] Interpretation and review of laboratory results Abnormal [facility] Hgb/Hcton 12-30-2023 Hematocrit (Bld) [Volume fraction] 34.2 % Low 36.3-47.1 [facility] Comment on above: Performed By: #### O SMO, LD, MG, JESUS, TSHX, LIVP, B12FOL, LACTIC, FT4, BMP #### [facility] [address] [place] [phone] Telehealth Nurse: Tato Ibarra MD Hemoglobin (Bld) [Mass/Vol] 11.0 g/dL Low 11.9-15.1 [facility] Comment on above: Performed By: #### O SMO, LD, MG, JESUS, TSHX, LIVP, B12FOL, LACTIC, FT4, BMP #### [facility] [address] [place] [phone] Telehealth Nurse: Tato Ibarra MD Laboratory - Chemistry and C hemistry - challengeon 12-30-2023 Albumin [Mass/Vol] 1.9 g/dL Low 3.4-5.0 [facility] ALP [Catalytic activity/Vol] 149 U/L High 46-116 [facility] ALT [Catalytic activity/Vol] 18 U/L 14-59 [facility] AST [Catalytic activity/Vol] 34 U/L 15-37 [facility] Bilirubin [Mass/Vol] 0.3 mg/dL 0.2-1.0 [facility] Calcium [Mass/Vol] 8.3 mg/dL Low 8.5-10.1 [facility] Chloride [Moles/Vol] 107 mmol/L 98-107 [facility] CO2 [Moles/Vol] 25.6 mmol/L 21.0-32.0 [facility] Creatinine [Mass/Vol] 0.41 mg/dL Low 0.55-1.02 [facility] GFR/1.73 sq M.predicted MDRD (S/P/Bld) [Vol rate/Area] mL/min/{1.73_m2} >=60 [facility] Glucose [Mass/Vol] 85 mg/dL 74-106 [facility] Potassium [Moles/Vol] 3.2 mmol/L Low 3.5-5.1 [facility] Protein [Mass/Vol] 4.5 g/dL Low 6.4-8.2 [facility] Sodium [Moles/Vol] 141 mmol/L 136-145 [facility] Urea nitrogen [Mass/Vol] mg/dL Low 7.0-18.0 [facility] Urea nitrogen/Creatinine [Mass ratio] 2.4 mg/mg [facility] Laboratory - Hematology and Cell countson 12-30-2023 Immature granulocytes/100 WBC (Bld) 0.2 % 0.0-0.5 [facility] Leukocytes [#/volume] correc patty for nucleated erythrocytes in Blood by Automated counon 12-30-2023 WBC corrected for nucl RBC Auto (Bld) [#/Vol] 4.0 10 3/uL 4.0-11.0 [facility] Lymphocytes Auto (Bld) [#/Vo l]on 12-30-2023 Lymphocytes (Bld) [#/Vol] 1.3 10 3/uL 1.2-3.8 [facility] Lymphocytes/100 WBC Auto (Bl d)on 12-30-2023 Lymphocytes/100 WBC (Bld) 32.9 % 20.5-60.0 [facility] MCH Auto (RBC) [Entitic mass ]on 12-30-2023 MCH (RBC) [Entitic mass] 35.4 pg High 26.7-34.0 [facility] MCHC Auto (RBC) [Mass/Vol]on 12-30-2023 MCHC (RBC) [Mass/Vol] 33.2 g/dL 29.9-35.2 [facility] MCV Auto (RBC) [Entitic vol] on 12-30-2023 MCV (RBC) [Entitic vol] 106.7 fL High 81.0-99.0 [facility] Monocytes Auto (Bld) [#/Vol] on 12-30-2023 Monocytes (Bld) [#/Vol] 0.3 10 3/uL 0.3-0.8 [facility] Monocytes/100 WBC Auto (Bld) on 12-30-2023 Monocytes/100 WBC (Bld) 7.9 % 1.7-12.0 [facility] Neutrophils Auto (Bld) [#/Vo l]on 12-30-2023 Neutrophils (Bld) [#/Vol] 2.2 10 3/uL 1.4-6.5 [facility] Neutrophils/100 WBC Auto (Bl d)on 12-30-2023 Neutrophils/100 WBC (Bld) 55.6 % 43.0-75.0 [facility] No Panel Informationon 12-29 Eosinophils # (Auto) 0.1 10 3/uL 0.0-0.7 [facility] Immature Granulocyte # (Auto) 0.01 10 3/uL 0.00-0.03 [facility] Platelet mean volume Auto (B ld) [Entitic vol]on 12-30-2023 Platelet mean volume (Bld) [Entitic vol] 9.4 fL Low 9.5-13.5 [facility] Platelets Auto (Bld) [#/Vol] on 12-30-2023 Platelets (Bld) [#/Vol] 175 10 3/uL 150-450 [facility] RBC Auto (Bld) [#/Vol]on RBC (Bld) [#/Vol] 2.09 10 6/uL Low 4.20-5.40 [facility] Serum or plasma albumin/glob ulin mass ratioon 12-30-2023 Albumin/Globulin [Mass ratio] 0.7 {ratio} [facility] Serum or plasma anion gap de terminationon 12-30-2023 Anion gap [Moles/Vol] 11.6 mmol/L [facility] Basophils Auto (Bld) [#/Vol] on 12-29-2023 Basophils (Bld) [#/Vol] 0.0 10 3/uL 0.0-0.1 [facility] Basophils/100 WBC Auto (Bld) on 12-29-2023 Basophils/100 WBC (Bld) 0.8 % 0.2-2.0 [facility] Eosinophils/100 WBC Auto (Bl d)on 12-29-2023 Eosinophils/100 WBC (Bld) 1.4 % 0.9-7.0 [facility] Erythrocyte distribution wid th Auto (RBC) [Ratio]on 12-29-2023 Erythrocyte distribution width (RBC) [Ratio] 15.1 % High 11.0-15.0 [facility] Estimated glomerular filtrat ion rate (GFR) non- Americanon 12-29-2023 GFR/1.73 sq M.predicted among non-blacks MDRD (S/P/Bld) [Vol rate/Area] mL/min/{1.73_m2} >=60 [facility] Globulin Calc (S) [Mass/Vol] on 12-29-2023 Globulin (S) [Mass/Vol] 2.8 g/dL [facility] Hematocrit Auto (Bld) [Volum e fraction]on 12-29-2023 Hematocrit (Bld) [Volume fraction] 24.3 % Low 36.0-48.0 [facility] Hemoglobin [Mass/volume] in Bloodon 12-29-2023 Hemoglobin (Bld) [Mass/Vol] 8.1 g/dL Low 12.0-16.0 [facility] Laboratory - Chemistry and C hemistry - challengeon 12-29-2023 Albumin [Mass/Vol] 2.0 g/dL Low 3.4-5.0 [facility] ALP [Catalytic activity/Vol] 166 U/L High 46-116 [facility] ALT [Catalytic activity/Vol] 17 U/L 14-59 [facility] AST [Catalytic activity/Vol] 30 U/L 15-37 [facility] Bilirubin [Mass/Vol] 0.4 mg/dL 0.2-1.0 [facility] Calcium [Mass/Vol] 8.4 mg/dL Low 8.5-10.1 [facility] Chloride [Moles/Vol] 104 mmol/L 98-107 [facility] CO2 [Moles/Vol] 28.3 mmol/L 21.0-32.0 [facility] Creatinine [Mass/Vol] 0.52 mg/dL Low 0.55-1.02 [facility] GFR/1.73 sq M.predicted MDRD (S/P/Bld) [Vol rate/Area] mL/min/{1.73_m2} >=60 [facility] Glucose [Mass/Vol] 91 mg/dL 74-106 [facility] Potassium [Moles/Vol] 3.8 mmol/L 3.5-5.1 [facility] Protein [Mass/Vol] 4.8 g/dL Low 6.4-8.2 [facility] Sodium [Moles/Vol] 136 mmol/L 136-145 [facility] Urea nitrogen [Mass/Vol] 6.0 mg/dL Low 7.0-18.0 [facility] Urea nitrogen/Creatinine [Mass ratio] 11.5 mg/mg [facility] Laboratory - Hematology and Cell countson 12-29-2023 Immature granulocytes/100 WBC (Bld) 0.2 % 0.0-0.5 [facility] Leukocytes [#/volume] correc patty for nucleated erythrocytes in Blood by Automated counon 12-29-2023 WBC corrected for nucl RBC Auto (Bld) [#/Vol] 4.8 10 3/uL 4.0-11.0 [facility] Lymphocytes Auto (Bld) [#/Vo l]on 12-29-2023 Lymphocytes (Bld) [#/Vol] 1.7 10 3/uL 1.2-3.8 [facility] Lymphocytes/100 WBC Auto (Bl d)on 12-29-2023 Lymphocytes/100 WBC (Bld) 35.1 % 20.5-60.0 [facility] MCH Auto (RBC) [Entitic mass ]on 12-29-2023 MCH (RBC) [Entitic mass] 36.2 pg High 26.7-34.0 [facility] MCHC Auto (RBC) [Mass/Vol]on 12-29-2023 MCHC (RBC) [Mass/Vol] 33.5 g/dL 29.9-35.2 [facility] MCV Auto (RBC) [Entitic vol] on 12-29-2023 MCV (RBC) [Entitic vol] 108.2 fL High 81.0-99.0 [facility] Monocytes Auto (Bld) [#/Vol] on 12-29-2023 Monocytes (Bld) [#/Vol] 0.6 10 3/uL 0.3-0.8 [facility] Monocytes/100 WBC Auto (Bld) on 12-29-2023 Monocytes/100 WBC (Bld) 11.6 % 1.7-12.0 [facility] Neutrophils Auto (Bld) [#/Vo l]on 12-29-2023 Neutrophils (Bld) [#/Vol] 2.5 10 3/uL 1.4-6.5 [facility] Neutrophils/100 WBC Auto (Bl d)on 12-29-2023 Neutrophils/100 WBC (Bld) 50.9 % 43.0-75.0 [facility] No Panel Informationon 12-28 Eosinophils # (Auto) 0.1 10 3/uL 0.0-0.7 [facility] Immature Granulocyte # (Auto) 0.01 10 3/uL 0.00-0.03 [facility] Platelet mean volume Auto (B ld) [Entitic vol]on 12-29-2023 Platelet mean volume (Bld) [Entitic vol] 9.5 fL 9.5-13.5 [facility] Platelets Auto (Bld) [#/Vol] on 12-29-2023 Platelets (Bld) [#/Vol] 204 10 3/uL 150-450 [facility] RBC Auto (Bld) [#/Vol]on RBC (Bld) [#/Vol] 2.32 10 6/uL Low 4.20-5.40 [facility] Serum or plasma albumin/glob ulin mass ratioon 12-29-2023 Albumin/Globulin [Mass ratio] 0.7 {ratio} [facility] Serum or plasma anion gap de terminationon 12-29-2023 Anion gap [Moles/Vol] 7.5 mmol/L [facility] Basophils Auto (Bld) [#/Vol] on 12-28-2023 Basophils (Bld) [#/Vol] 0.0 10 3/uL 0.0-0.1 [facility] Basophils/100 WBC Auto (Bld) on 12-28-2023 Basophils/100 WBC (Bld) 0.3 % 0.2-2.0 [facility] Eosinophils/100 WBC Auto (Bl d)on 12-28-2023 Eosinophils/100 WBC (Bld) 0.2 % Low 0.9-7.0 [facility] Erythrocyte distribution wid th Auto (RBC) [Ratio]on 12-28-2023 Erythrocyte distribution width (RBC) [Ratio] 14.6 % 11.0-15.0 [facility] Estimated glomerular filtrat ion rate (GFR) non- Americanon 12-28-2023 GFR/1.73 sq M.predicted among non-blacks MDRD (S/P/Bld) [Vol rate/Area] mL/min/{1.73_m2} >=60 [facility] Globulin Calc (S) [Mass/Vol] on 12-28-2023 Globulin (S) [Mass/Vol] 3.4 g/dL [facility] Hematocrit Auto (Bld) [Volum e fraction]on 12-28-2023 Hematocrit (Bld) [Volume fraction] 27.1 % Low 36.0-48.0 [facility] Hemoglobin [Mass/volume] in Bloodon 12-28-2023 Hemoglobin (Bld) [Mass/Vol] 9.1 g/dL Low 12.0-16.0 [facility] Hemoglobin.gastrointestinal [Presence] in Stoolon 12-28-2023 Hemoglobin.gastroint estinal Ql (Stl) Positive Abnormal [facility] INR in Platelet poor plasma by Coagulation assayon 12-28-2023 INR Coag (PPP) [Relative time] {INR} [facility] Comment on above: DESIRED INR:2.0-3.0 CONDITIONS NOT LISTED BELOW2.5-3.5 FOR PROSTHETIC HEART VALVE REPLACEMENT2.5-3.5 RECURRENT THROMBOSIS Laboratory - Chemistry and C hemistry - challengeon 12-28-2023 Calcium [Mass/Vol] 8.4 mg/dL Low 8.5-10.1 [facility] Chloride [Moles/Vol] 101 mmol/L 98-107 [facility] CO2 [Moles/Vol] 25.4 mmol/L 21.0-32.0 [facility] Creatinine [Mass/Vol] 0.57 mg/dL 0.55-1.02 [facility] GFR/1.73 sq M.predicted MDRD (S/P/Bld) [Vol rate/Area] mL/min/{1.73_m2} >=60 [facility] Glucose [Mass/Vol] 102 mg/dL 74-106 [facility] Potassium [Moles/Vol] 3.7 mmol/L 3.5-5.1 [facility] Sodium [Moles/Vol] 133 mmol/L Low 136-145 [facility] Urea nitrogen [Mass/Vol] 8.0 mg/dL 7.0-18.0 [facility] Urea nitrogen/Creatinine [Mass ratio] 14.0 mg/mg [facility] Bilirubin Ql (U) Negative NEGATIVE [facility] Glucose (U) [Mass/Vol] Negative NEGATIVE [facility] Ketones Ql (U) Negative NEGATIVE [facility] pH (U) 6.0 [pH] 5.0-9.0 [facility] Sodium (U) [Moles/Vol] 13 mmol/L Low 30-90 [facility] Specific gravity (U) [Rel density] <=1.005 Abnormal 1.005-1.025 [facility] Urobilinogen Qn (U) 0.2 {[place]'U}/dL 0.2-1.0 [facility] Lactate [Moles/Vol] 2.1 mmol/L High 0.4-2.0 [facility] Comment on above: RESULTS CALLED TO KATERIN LEARY RN Albumin [Mass/Vol] 2.2 g/dL Low 3.4-5.0 [facility] ALP [Catalytic activity/Vol] 219 U/L High 46-116 [facility] ALT [Catalytic activity/Vol] 21 U/L 14-59 [facility] AST [Catalytic activity/Vol] 45 U/L High 15-37 [facility] Bilirubin [Mass/Vol] 0.5 mg/dL 0.2-1.0 [facility] Protein [Mass/Vol] 5.6 g/dL Low 6.4-8.2 [facility] - Hematology and Cell countson 12-28-2023 Immature granulocytes/100 WBC (Bld) 0.3 % 0.0-0.5 [facility] - Specimen inform ationon 12-28-2023 Appearance (U) CLEAR CLEAR [facility] Color (U) LT. YELLOW YELLOW [facility] - Urinalysison Leukocyte esterase Test strip Ql (U) Negative NEGATIVE [facility] Nitrite Ql (U) Negative NEGATIVE [facility] Protein Ql (U) Negative NEG/TRACE [facility] Leukocytes [#/volume] correc patty for nucleated erythrocytes in Blood by Automated counon 12-28-2023 WBC corrected for nucl RBC Auto (Bld) [#/Vol] 10.1 10 3/uL 4.0-11.0 [facility] Lymphocytes Auto (Bld) [#/Vo l]on 12-28-2023 Lymphocytes (Bld) [#/Vol] 2.9 10 3/uL 1.2-3.8 [facility] Lymphocytes/100 WBC Auto (Bl d)on 12-28-2023 Lymphocytes/100 WBC (Bld) 28.7 % 20.5-60.0 [facility] [facility] MCH Auto (RBC) [Entitic mass ]on 12-28-2023 MCH (RBC) [Entitic mass] 35.6 pg High 26.7-34.0 [facility] MCHC Auto (RBC) [Mass/Vol]on 12-28-2023 MCHC (RBC) [Mass/Vol] 34.4 g/dL 29.9-35.2 [facility] MCV Auto (RBC) [Entitic vol] on 12-28-2023 MCV (RBC) [Entitic vol] 103.6 fL High 81.0-99.0 [facility] Monocytes Auto (Bld) [#/Vol] on 12-28-2023 Monocytes (Bld) [#/Vol] 0.7 10 3/uL 0.3-0.8 [facility] Monocytes/100 WBC Auto (Bld) on 12-28-2023 Monocytes/100 WBC (Bld) 6.8 % 1.7-12.0 [facility] Neutrophils Auto (Bld) [#/Vo l]on 12-28-2023 Neutrophils (Bld) [#/Vol] 6.4 10 3/uL 1.4-6.5 [facility] Neutrophils/100 WBC Auto (Bl d)on 12-28-2023 Neutrophils/100 WBC (Bld) 63.7 % 43.0-75.0 [facility] No Panel Informationon 12-27 Urine Microscopic Review NO [facility] Urine Occult Blood Negative NEGATIVE [facility] Urine Osmolality 161 mOsmol/kg . [facility] Comment on above: 24 hr : 300 - 900 Ra ndom: 50 - 1400 After 12hr fluid restriction: >850Performed at: - [facility] [id number] Director: Ab Giordano MD, Phone: [phone] Urine Random Creatinine <13.00 mg/dL Low 20.00-300.00 [facility] Eosinophils # (Auto) 0.0 10 3/uL 0.0-0.7 [facility] Immature Granulocyte # (Auto) 0.03 10 3/uL 0.00-0.03 [facility] Troponin I High Sensitivity <4.0 pg/mL Low 4.0-51.3 [facility] Comment on above: CUT-OFF POINTS HAVE BEEN [...] Damaris Coffey on 12-28-2023 Blood Culture 2 [facility] Blood Culture 1 [facility] Platelet mean volume Auto (B ld) [Entitic vol]on 12-28-2023 Platelet mean volume (Bld) [Entitic vol] 9.8 fL 9.5-13.5 [facility] Platelets Auto (Bld) [#/Vol] on 12-28-2023 Platelets (Bld) [#/Vol] 315 10 3/uL 150-450 [facility] Prothrombin time (PT)on PT Coag (PPP) [Time] 9.6 s 9.0-11.6 [facility] RBC Auto (Bld) [#/Vol]on RBC (Bld) [#/Vol] 3.09 10 6/uL Low 4.20-5.40 [facility] Serum or plasma albumin/glob ulin mass ratioon 12-28-2023 Albumin/Globulin [Mass ratio] 0.6 {ratio} [facility] Serum or plasma anion gap de terminationon 12-28-2023 Anion gap [Moles/Vol] 10.3 mmol/L [facility] Basophils Auto (Bld) [#/Vol] on 11-10-2023 Basophils (Bld) [#/Vol] 0.0 10 3/uL 0.0-0.1 [facility] Basophils/100 WBC Auto (Bld) on 11-10-2023 Basophils/100 WBC (Bld) 0.5 % 0.2-2.0 [facility] Eosinophils/100 WBC Auto (Bl d)on 11-10-2023 Eosinophils/100 WBC (Bld) 0.1 % Low 0.9-7.0 [facility] Erythrocyte distribution wid th Auto (RBC) [Ratio]on 11-10-2023 Erythrocyte distribution width (RBC) [Ratio] 12.7 % 11.0-15.0 [facility] Estimated glomerular filtrat ion rate (GFR) non- Americanon 11-10-2023 GFR/1.73 sq M.predicted among non-blacks MDRD (S/P/Bld) [Vol rate/Area] 58 mL/min/{1.73_m2} Low >=60 [facility] Globulin Calc (S) [Mass/Vol] on 11-10-2023 Globulin (S) [Mass/Vol] 3.6 g/dL [facility] Hematocrit Auto (Bld) [Volum e fraction]on 11-10-2023 Hematocrit (Bld) [Volume fraction] 38.3 % 36.0-48.0 [facility] Hemoglobin [Mass/volume] in Bloodon 11-10-2023 Hemoglobin (Bld) [Mass/Vol] 13.2 g/dL 12.0-16.0 [facility] INR in Platelet poor plasma by Coagulation assayon 11-10-2023 INR Coag (PPP) [Relative time] {INR} [facility] Comment on above: DESIRED INR:2.0-3.0 CONDITIONS NOT LISTED BELOW2.5-3.5 FOR PROSTHETIC HEART VALVE REPLACEMENT2.5-3.5 RECURRENT THROMBOSIS Laboratory - Chemistry and C hemistry - challengeon 11-10-2023 Albumin [Mass/Vol] 3.0 g/dL Low 3.4-5.0 [facility] ALP [Catalytic activity/Vol] 232 U/L High 46-116 [facility] ALT [Catalytic activity/Vol] 23 U/L 14-59 [facility] AST [Catalytic activity/Vol] 82 U/L High 15-37 [facility] Bilirubin [Mass/Vol] 0.6 mg/dL 0.2-1.0 [facility] Calcium [Mass/Vol] 9.3 mg/dL 8.5-10.1 [facility] Chloride [Moles/Vol] 97 mmol/L Low 98-107 [facility] CO2 [Moles/Vol] 25.7 mmol/L 21.0-32.0 [facility] Creatinine [Mass/Vol] 0.99 mg/dL 0.55-1.02 [facility] GFR/1.73 sq M.predicted MDRD (S/P/Bld) [Vol rate/Area] mL/min/{1.73_m2} >=60 [facility] Glucose [Mass/Vol] 113 mg/dL High 74-106 [facility] Lipase [Catalytic activity/Vol] 16.0 U/L 16.0-77.0 [facility] Potassium [Moles/Vol] 3.0 mmol/L Low 3.5-5.1 [facility] Protein [Mass/Vol] 6.6 g/dL 6.4-8.2 [facility] Sodium [Moles/Vol] 133 mmol/L Low 136-145 [facility] Urea nitrogen [Mass/Vol] 4.0 mg/dL Low 7.0-18.0 [facility] Urea nitrogen/Creatinine [Mass ratio] 4.0 mg/mg [facility] Laboratory - Hematology and Cell countson 11-10-2023 Immature granulocytes/100 WBC (Bld) 0.4 % 0.0-0.5 [facility] Leukocytes [#/volume] correc patty for nucleated erythrocytes in Blood by Automated counon 11-10-2023 WBC corrected for nucl RBC Auto (Bld) [#/Vol] 7.3 10 3/uL 4.0-11.0 [facility] Lymphocytes Auto (Bld) [#/Vo l]on 11-10-2023 Lymphocytes (Bld) [#/Vol] 1.3 10 3/uL 1.2-3.8 [facility] Lymphocytes/100 WBC Auto (Bl d)on 11-10-2023 Lymphocytes/100 WBC (Bld) 17.4 % Low 20.5-60.0 [facility] MCH Auto (RBC) [Entitic mass ]on 11-10-2023 MCH (RBC) [Entitic mass] 38.2 pg High 26.7-34.0 [facility] MCHC Auto (RBC) [Mass/Vol]on 11-10-2023 MCHC (RBC) [Mass/Vol] 34.5 g/dL 29.9-35.2 [facility] MCV Auto (RBC) [Entitic vol] on 11-10-2023 MCV (RBC) [Entitic vol] 110.7 fL High 81.0-99.0 [facility] Monocytes Auto (Bld) [#/Vol] on 11-10-2023 Monocytes (Bld) [#/Vol] 0.5 10 3/uL 0.3-0.8 [facility] Monocytes/100 WBC Auto (Bld) on 11-10-2023 Monocytes/100 WBC (Bld) 6.7 % 1.7-12.0 [facility] Neutrophils Auto (Bld) [#/Vo l]on 11-10-2023 Neutrophils (Bld) [#/Vol] 5.5 10 3/uL 1.4-6.5 [facility] Neutrophils/100 WBC Auto (Bl d)on 11-10-2023 Neutrophils/100 WBC (Bld) 74.9 % 43.0-75.0 [facility] No Panel Informationon 11-09 Stool Occult Blood Negative [facility] Eosinophils # (Auto) 0.0 10 3/uL 0.0-0.7 [facility] Immature Granulocyte # (Auto) 0.03 10 3/uL 0.00-0.03 [facility] Troponin I High Sensitivity 11.2 pg/mL 4.0-51.3 [facility] Comment on above: CUT-OFF POINTS HAVE BEEN [...] volume (Bld) [Entitic vol] 9.8 fL 9.5-13.5 [facility] Platelets Auto (Bld) [#/Vol] on 11-10-2023 Platelets (Bld) [#/Vol] 305 10 3/uL 150-450 [facility] Prothrombin time (PT)on 10-24 PT Coag (PPP) [Time] 9.7 s 9.0-11.6 [facility] RBC Auto (Bld) [#/Vol]on RBC (Bld) [#/Vol] 3.46 10 6/uL Low 4.20-5.40 [facility] Serum or plasma albumin/glob ulin mass ratioon 11-10-2023 Albumin/Globulin [Mass ratio] 0.8 {ratio} [facility] Serum or plasma anion gap de terminationon 11-10-2023 Anion gap [Moles/Vol] 13.3 mmol/L [facility] Basophils Auto (Bld) [#/Vol] on 09-03-2023 Basophils (Bld) [#/Vol] 0.0 10 3/uL 0.0-0.1 [facility] Basophils/100 WBC Auto (Bld) on 09-03-2023 Basophils/100 WBC (Bld) 0.4 % 0.2-2.0 [facility] Eosinophils/100 WBC Auto (Bl d)on 09-03-2023 Eosinophils/100 WBC (Bld) 0.4 % 0.9-7.0 [facility] Erythrocyte distribution wid th Auto (RBC) [Ratio]on 09-03-2023 Erythrocyte distribution width (RBC) [Ratio] 16.8 % 11.0-15.0 [facility] Estimated glomerular filtrat ion rate (GFR) non- Americanon 09-03-2023 GFR/1.73 sq M.predicted among non-blacks MDRD (S/P/Bld) [Vol rate/Area] 29 mL/min/{1.73_m2} >=60 [facility] Hematocrit Auto (Bld) [Volum e fraction]on 09-03-2023 Hematocrit (Bld) [Volume fraction] 36.0 % 36.0-48.0 [facility] Hemoglobin [Mass/volume] in Bloodon 09-03-2023 Hemoglobin (Bld) [Mass/Vol] 12.3 g/dL 12.0-16.0 [facility] Laboratory - Chemistry and C hemistry - challengeon 09-03-2023 Calcium [Mass/Vol] 9.3 mg/dL 8.5-10.1 [facility] Chloride [Moles/Vol] 98 mmol/L 98-107 [facility] CO2 [Moles/Vol] 23.8 mmol/L 21.0-32.0 [facility] Creatinine [Mass/Vol] 1.80 mg/dL 0.55-1.02 [facility] GFR/1.73 sq M.predicted MDRD (S/P/Bld) [Vol rate/Area] 36 mL/min/{1.73_m2} >=60 [facility] Glucose [Mass/Vol] 103 mg/dL 74-106 [facility] Potassium [Moles/Vol] 3.2 mmol/L 3.5-5.1 [facility] Sodium [Moles/Vol] 137 mmol/L 136-145 [facility] Urea nitrogen [Mass/Vol] 2.0 mg/dL 7.0-18.0 [facility] Urea nitrogen/Creatinine [Mass ratio] 1.1 mg/mg [facility] Laboratory - Hematology and Cell countson 09-03-2023 Immature granulocytes/100 WBC (Bld) 0.4 % 0.0-0.5 [facility] Leukocytes [#/volume] correc patty for nucleated erythrocytes in Blood by Automated counon 09-03-2023 WBC corrected for nucl RBC Auto (Bld) [#/Vol] 9.9 10 3/uL 4.0-11.0 [facility] Lymphocytes Auto (Bld) [#/Vo l]on 09-03-2023 Lymphocytes (Bld) [#/Vol] 1.7 10 3/uL 1.2-3.8 [facility] Lymphocytes/100 WBC Auto (Bl d)on 09-03-2023 Lymphocytes/100 WBC (Bld) 17.4 % 20.5-60.0 [facility] MCH Auto (RBC) [Entitic mass ]on 09-03-2023 MCH (RBC) [Entitic mass] 36.4 pg 26.7-34.0 [facility] MCHC Auto (RBC) [Mass/Vol]on 09-03-2023 MCHC (RBC) [Mass/Vol] 34.2 g/dL 29.9-35.2 [facility] MCV Auto (RBC) [Entitic vol] on 09-03-2023 MCV (RBC) [Entitic vol] 106.5 fL 81.0-99.0 [facility] Monocytes Auto (Bld) [#/Vol] on 09-03-2023 Monocytes (Bld) [#/Vol] 0.8 10 3/uL 0.3-0.8 [facility] Monocytes/100 WBC Auto (Bld) on 09-03-2023 Monocytes/100 WBC (Bld) 8.0 % 1.7-12.0 [facility] Neutrophils Auto (Bld) [#/Vo l]on 09-03-2023 Neutrophils (Bld) [#/Vol] 7.3 10 3/uL 1.4-6.5 [facility] Neutrophils/100 WBC Auto (Bl d)on 09-03-2023 Neutrophils/100 WBC (Bld) 73.4 % 43.0-75.0 [facility] No Panel Informationon 09-02 Eosinophils # (Auto) 0.0 10 3/uL 0.0-0.7 [facility] Immature Granulocyte # (Auto) 0.04 10 3/uL 0.00-0.03 [facility] Troponin I High Sensitivity 19.5 pg/mL 4.0-51.3 [facility] Comment on above: CUT-OFF POINTS HAVE BEEN [...] volume (Bld) [Entitic vol] 9.8 fL 9.5-13.5 [facility] Platelets Auto (Bld) [#/Vol] on 09-03-2023 Platelets (Bld) [#/Vol] 312 10 3/uL 150-450 [facility] RBC Auto (Bld) [#/Vol]on RBC (Bld) [#/Vol] 3.38 10 6/uL 4.20-5.40 [facility] Serum or plasma anion gap de terminationon 09-03-2023 Anion gap [Moles/Vol] 18.4 mmol/L [facility] CT ANGIO CORONARY ART WITH H GOSIA IF SCORE >30%on 07-15-2023 CT ANGIO CORONARY [...] PM -------- ORIGINAL REPORT -------- Dictation workstation: [id number] Interpreted By: Ibrahima Merlos, STUDY: CT ANGIO CORONARY ART WITH HEARTFLOW IF SCORE >30%; 07/15/2023 12:36 pm INDICATION: Signs/Symptoms:chest pain,angina. COMPARISON: None. ACCESSION NUMBER(S): [id number] ORDERING CLINICIAN: YOSSI HUNTER TECHNIQUE: Using multi-detector [...] gender, and race in asymptomatic patients. Reading Doctor Of Nurse Anesthesia Practice: Dr. Ibrahima Merlos, Date: 07/15/2023 4:40 pm Signed by: Ibrahima Merlos 07/15/2023 4:43 PM Dictation workstation: [id number] [facility] CTA Heart and Coronary arter [...] PM -------- ORIGINAL REPORT -------- Dictation workstation: [id number] [facility] Work Phone: 1. Mild diffuse coronary artery disease without significant stenosis. 2. Coronary artery calcium score 260, 99th percentile for age, gender, and race in asymptomatic patients. Reading Doctor Of Nurse Anesthesia Practice: Dr. Ibrahima Merlos, Date: 07/15/2023 4:40 pm Signed by: Ibrahima Merlos 07/15/2023 4:43 PM Dictation workstation: [id number] [facility] Interpreted By: Ibrahima Merlos, STUDY: CT ANGIO CORONARY ART WITH HEARTFLOW IF SCORE >30%; 07/15/2023 12:36 pm INDICATION: Signs/Symptoms:chest pain,angina. COMPARISON: None. ACCESSION NUMBER(S): [id number] ORDERING CLINICIAN: YOSSI HUNTER TECHNIQUE: Using multi-detector [...] INDICATION: Signs/Symptoms:chest pain,angina. COMPARISON: None. ACCESSION NUMBER(S): [id number] ORDERING CLINICIAN: YOSSI HUNTER TECHNIQUE: Using multi-detector [...] gender, and race in asymptomatic patients. Reading Doctor Of Nurse Anesthesia Practice: Dr. Ibrahima Merlos, Date: 07/15/2023 4:40 pm Signed by: Ibrahima Merlos 07/15/2023 4:43 PM Dictation workstation: [id number] [facility] Work Phone: Radiology Study observation (narrative) [facility] Work Phone: CTA Heart and Coronary arter ies WO and W contrast IVOrdered By: Miriam Zuleta on 07-15-2023 [facility] Work Phone: Creatinineon 07-15-2023 Creatinine [Mass/Vol] 0.7 mg/dL Normal 0.6-1.3 [facility] Comment on above: Result Comment: Hydr oxyurea can cause significant interference with creatinine measurement using the i-STAT device. An alternate method of creatinine measurement must be used in patients treated with hydroxyurea. Performed By: #### 2 160-0 #### MIGUEL BRADLEY ([id number]) [facility] ([facility]) [address] [place] [address] Creatinine [Mass/Vol]on 06-27 GFR/1.73 sq M.predicted MDRD (S/P/Bld) [Vol rate/Area] - [facility] Comment on above: Calculations of martin mated GFR are performed using the 2020 CKD-EPI Study Refit equation without the race variable for the IDMS-Traceable Creatinine Methods. https://jasn.asnjournals.org/content/early/ASN.6568653 988 Interpretation and review of laboratory results Normal [facility] GFR/1.73 sq M.predicted MDRD (S/P/Bld) [Vol rate/Area] mL/min/{1.73_m2} Normal >=60 [facility] Comment on above: Result Comment: Calc ulations of estimated GFR are performed using the 2020 CKD-EPI Study Refit ???equation without the race variable for the IDMS-Traceable Creatinine Methods. https://jasn.asnjournals.org/content/early/ASN.7607371 988 Performed By: #### 2 160-0 #### MIGUEL BRADLEY ([id number]) [facility] ([facility]) [address] [place] [address] Laboratory - Chemistry and C hemistry - challengeon 07-15-2023 Creatinine [Mass/Vol] 0.7 mg/dL 0.6 - 1.3 mg/dL [facility] Comment on above: Hydroxyurea can caus e significant interference with creatinine measurement using the i-STAT device. An alternate method of creatinine measurement must be used in patients treated with hydroxyurea. TRANSTHORACIC ECHO (TTE) [facility] P[facility]on 06-13-2023 TRANSTHORACIC ECHO (TTE) COMPLETE [facility] [address], [address], [place], [place] [address] TRANSTHORACIC ECHOCARDIOGRAM REPORT Patient Name: CANDY Mckee Physician: [id number] Ibrahima Seamanpinky Study Date: 06/13/2023 Ordering Provider: [id number] YOSSICINDY HUNTER MRN/PID: [id number] Fellow: Nurse: Date of /Age: 5 1970 / 52 years Doctor Of Nurse Anesthesia Practice: [facility] Gender: F Additional Staff: Height: 162.56 cm Admit Date: 06/13/2023 Weight: 86.18 kg Admission Status: Outpatient BSA: 1.91 m2 Department Location: [facility] Blood Pressure: 110 /60 mmHg Study Type: TRANSTHORACIC ECHO (TTE) COMPLETE Diagnosis/ICD: Shortness of breath-R06.02; Endocarditis, valve unspecified-I38 Indication: SOB, HV Disease, Dizziness, AO Dilation CPT Codes: Echo Complete w Full Doppler-[id number] Patient History: Smoker: Current. Pertinent History: HTN [...] RA Area A4C: 12.5 cm2 RA Major Saffell A4C: 4.3 cm AORTA MEASUREMENTS: Normal Ranges: Asc Ao, d: 4.10 cm (2.1-3.4cm) LV SYSTOLIC FUNCT (more content not included)... Normal [facility] Heart TransthoracicOrdere d By: Ibrahima Serra on 06-13-2023 Aortic Valve Area by Continuity of Peak Velocity 3.48 cm2 [facility] Work Phone: Aortic Valve Area by Continuity of VTI 3.57 cm2 [facility] Work Phone: AV mn grad 3.0 mmHg [facility] Work Phone: [phone] AV pk grad 4.7 mmHg [facility] Work Phone: [phone] AV pk liya 1.08 m/s [facility] Work Phone: LV A4C EF 55.8 [facility] Work Phone: LV biplane EF 56 % [facility] Work Phone: LVIDd 4.20 cm [facility] Work Phone: LVOT diam 2.20 cm [facility] Work Phone: [phone] MV avg E/e' ratio 4.90 [facility] Work Phone: MV E/A ratio 0.62 [facility] Work Phone: RVSP 35.5 mmHg [facility] Work Phone: [facility] Work Phone: Heart Transthoracicon [facility] [address] [place] [address], [address], [place] [address] TRANSTHORACIC ECHOCARDIOGRAM REPORT Patient Name: CANDY BOOTH Reading Physician: [id number] Ibrahima Serra DO Study Date: 06/13/2023 Ordering Provider: [id number] YOSSIKAYLA SINHAJUNAID MRN/PID: [id number] Fellow: Nurse: Date of /Age: 5 1970 / 52 years Doctor Of Nurse Anesthesia Practice: [facility] Gender: F Additional Staff: Height: 162.56 cm Admit Date: 06/13/2023 Weight: 86.18 kg Admission Status: Outpatient BSA: 1.91 m2 Department Location: [facility] Blood Pressure: 110 /60 mmHg Study Type: TRANSTHORACIC ECHO (TTE) COMPLETE Diagnosis/ICD: Shortness of breath-R06.02; Endocarditis, valve unspecified-I38 Indication: SOB, HV Disease, Dizziness, AO Dilation CPT Codes: Echo Complete w Full Doppler-[id number] Patient History: Smoker: Current. Pertinent History: HTN [...] not included)... Ibrahima Meyer DO - 06/13/2023 [facility] [address] [place] [address], [address], [place], [place] [address] TRANSTHORACIC ECHOCARDIOGRAM REPORT Patient Name: CANDY BOOTH Reading Physician: [id number] Ibrahima Ponce HOLM Study Date: 06/13/2023 Ordering Provider: [id number] YOSSIKAYLA SINHAJUNAID MRN/PID: [id number] Fellow: Nurse: Date of /Age: 5 1970 / 52 years Doctor Of Nurse Anesthesia Practice: [facility] Gender: F Additional Staff: Height: 162.56 cm Admit Date: 06/13/2023 Weight: 86.18 kg Admission Status: Outpatient BSA: 1.91 m2 Department Location: [facility] Blood Pressure: 110 /60 mmHg Study Type: TRANSTHORACIC ECHO (TTE) COMPLETE Diagnosis/ICD: Shortness of breath-R06.02; Endocarditis, valve unspecified-I38 Indication: SOB, HV Disease, Dizziness, AO Dilation CPT Codes: Echo Complete w Full Doppler-[id number] Patient History: Smoker: Current. Pertinent History: HTN [...] Cornelius (more content not included)... [facility] Work Phone: PROF 14(COMP METB)on 022 Albumin [Mass/Vol] 4.2 g/dL Normal 3.4-5.0 [facility] Comment on above: Performed By: #### C MP #### [facility] [address] [place] [address] Dr. Leonides Anders Albumin/Globulin [Mass ratio] 1.3 {ratio} Normal [facility] Comment on above: Performed By: #### C MP #### [facility] [address] [place] [address] Dr. Leonides Anders ALP [Catalytic activity/Vol] 90 U/L Normal 46-116 [facility] Comment on above: Performed By: #### C MP #### [facility] [address] [place] [address] Dr. Leonides Anders ALT [Catalytic activity/Vol] 25 U/L Normal 14-59 [facility] Comment on above: Performed By: #### C MP #### [facility] [address] [place] [address] [address] Leonides Anders Anion gap [Moles/Vol] 12.1 mmol/L Normal [facility] Comment on above: Performed By: #### C MP #### [facility] [address] [place] [address] Dr. Leonides Anders AST [Catalytic activity/Vol] 20 U/L Normal 15-37 [facility] Comment on above: Performed By: #### C MP #### [facility] [address] [place] [address] Dr. Leonides Anders Bilirubin [Mass/Vol] 0.3 mg/dL Normal 0.2-1.0 [facility] Comment on above: Performed By: #### C MP #### [facility] [address] [place] [address] [address] Leonides Anders Calcium [Mass/Vol] 9.4 mg/dL Normal 8.5-10.1 [facility] Comment on above: Performed By: #### C MP #### [facility] [address] [place] [address] [address] Leonides Anders Chloride [Moles/Vol] 99 mmol/L Normal 98-107 [facility] Comment on above: Performed By: #### C MP #### [facility] [address] [place] [address] Dr. Leonides Anders CO2 [Moles/Vol] 26.2 mmol/L Normal 21.0-32.0 [facility] Comment on above: Performed By: #### C MP #### [facility] [address] [place] [address] Dr. Leonides Anders Creatinine [Mass/Vol] 0.68 mg/dL Normal 0.55-1.02 [facility] Comment on above: Performed By: #### C MP #### [facility] [address] [place] [address] Dr. Leonides Anders EGFR-AF SYRIAN >60 Normal >=60 [facility] Comment on above: Performed By: #### C MP #### [facility] [address] [place] [address] Dr. Leonides Anders EGFR-NON AF SYRIAN >60 Normal >=60 [facility] Comment on above: Performed By: #### C MP #### [facility] [address] [place] [address] Dr. Leonides Anders Globulin (S) [Mass/Vol] 3.3 g/dL Normal [facility] Comment on above: Performed By: #### C MP #### [facility] [address] [place] [address] Dr. Leonides Anders Glucose [Mass/Vol] 97 mg/dL Normal 74-106 [facility] Comment on above: Performed By: #### C MP #### [facility] [address] [place] [address] [address] Leonides Anders Potassium [Moles/Vol] 4.3 mmol/L Normal 3.5-5.1 [facility] Comment on above: Performed By: #### C MP #### [facility] [address] [place] [address] [address] Leonides Anders Protein [Mass/Vol] 7.5 g/dL Normal 6.4-8.2 [facility] Comment on above: Performed By: #### C MP #### [facility] [address] [place] [address] [address] Leonides Anders Sodium [Moles/Vol] 133 mmol/L Critically low 136-145 [facility] Comment on above: Performed By: #### C MP #### [facility] [address] [place] [address] Dr. Leonides Anders Urea nitrogen [Mass/Vol] 10.0 mg/dL Normal 7.0-18.0 [facility] Comment on above: Performed By: #### C MP #### [facility] [address] [place] [address] Dr. Leonides Anders Urea nitrogen/Creatinine [Mass ratio] 14.7 mg/mg Normal [facility] Comment on above: Performed By: #### C MP #### [facility] [address] [place] [address] Dr. Leonides Anders CBC AUTO DIFFon 03-25-2022 BASO # 0.1 103/ul Normal 0.0-0.1 [facility] Comment on above: Performed By: #### C BC #### [facility] [address] [place] [address] Dr. Leonides Anders Basophils/100 WBC (Bld) 0.5 % Normal 0.2-2.0 [facility] Comment on above: Performed By: #### C BC #### [facility] [address] [place] [address] Dr. Leonides Anders EO # 0.1 103/ul Normal 0.0-0.7 [facility] Comment on above: Performed By: #### C BC #### [facility] [address] [place] [address] Dr. Leonides Anders Eosinophils/100 WBC (Bld) 1.1 % Normal 0.9-7.0 [facility] Comment on above: Performed By: #### C BC #### [facility] [address] [place] [address] Dr. Leonides Anders Erythrocyte distribution width (RBC) [Ratio] 12.9 % Normal 11.0-15.0 [facility] Comment on above: Performed By: #### C BC #### [facility] [address] [place] [address] Dr. Leonides Anders Hematocrit (Bld) [Volume fraction] 38.8 % Normal 36.0-48.0 [facility] Comment on above: Performed By: #### C BC #### [facility] [address] [place] [address] Dr. Leonides Anders Hemoglobin (Bld) [Mass/Vol] 13.8 g/dL Normal 12.0-16.0 [facility] Comment on above: Performed By: #### C BC #### [facility] [address] [place] [address] Dr. Leonides Anders IG # 0.03 10e3/ul Normal 0.00-0.03 [facility] Comment on above: Performed By: #### C BC #### [facility] [address] [place] [address] Dr. Leonides Anders IG % 0.3 % Normal 0.0-0.5 [facility] Comment on above: Performed By: #### C BC #### [facility] [address] [place] [address] Dr. Leonides Anders LYMPH # 2.5 103/ul Normal 1.2-3.8 [facility] Comment on above: Performed By: #### C BC #### [facility] [address] [place] [address] Dr. Leonides Anders Lymphocytes/100 WBC (Bld) 26.5 % Normal 20.5-60.0 [facility] Comment on above: Performed By: #### C BC #### [facility] [address] [place] [address] Dr. Leonides Anders MANUAL DIFF REQ NO Normal The [facility] Comment on above: Performed By: #### C BC #### [facility] [address] [place] [address] Dr. Leonides Anders MCH (RBC) [Entitic mass] 32.0 pg Normal 26.7-34.0 [facility] Comment on above: Performed By: #### C BC #### [facility] [address] [place] [address] Dr. Leonides Anders MCHC (RBC) [Mass/Vol] 35.6 g/dL Critically high 29.9-35.2 The [facility] Comment on above: Performed By: #### C BC #### [facility] [address] [place] [address] Dr. Leonides Anders MCV (RBC) [Entitic vol] 90.0 fL Normal 81.0-99.0 [facility] Comment on above: Performed By: #### C BC #### [facility] [address] [place] [address] Dr. Leonides Anders MONO # 0.9 103/ul Critically high 0.3-0.8 The [facility] Comment on above: Performed By: #### C BC #### [facility] [address] [place] [address] Dr. Leonides Anders Monocytes/100 WBC (Bld) 9.8 % Normal 1.7-12.0 The [facility] Comment on above: Performed By: #### C BC #### [facility] [address] [place] [address] Dr. Leonides Anders NEUT # 5.8 103/ul Normal 1.4-6.5 The [facility] Comment on above: Performed By: #### C BC #### [facility] [address] [place] [address] Dr. Leonides Anders Neutrophils/100 WBC (Bld) 61.8 % Normal 43.0-75.0 The [facility] Comment on above: Performed By: #### C BC #### [facility] [address] [address] [address] Leonides Anders Platelet mean volume (Bld) [Entitic vol] 9.5 fL Normal 9.5-13.5 [facility] Comment on above: Performed By: #### C BC #### [facility] [address] [place] [address] Dr. Leonides Anders PLT 255 103/ul Normal 150-450 [facility] Comment on above: Performed By: #### C BC #### [facility] [address] [address] [address] Leonides Anders RBC 4.31 106/ul Normal 4.20-5.40 [facility] Comment on above: Performed By: #### C BC #### [facility] [address] [place] [address] Dr. Leonides Anders WBC 9.4 103/ul Normal 4.0-11.0 [facility] Comment on above: Performed By: #### C BC #### [facility] [address] [place] [address] Dr. Leonides Anders PROF CHEM 8 (BAS METB)on Anion gap [Moles/Vol] 15.7 mmol/L Normal [facility] Comment on above: Performed By: #### B MP #### [facility] [address] [place] [address] Dr. Leonides Anders Calcium [Mass/Vol] 9.1 mg/dL Normal 8.5-10.1 [facility] Comment on above: Performed By: #### B MP #### [facility] [address] [place] [address] Dr. Leonides Anders Chloride [Moles/Vol] 91 mmol/L Critically low 98-107 [facility] Comment on above: Performed By: #### B MP #### [facility] [address] [place] [address] Dr. Leonides Anders CO2 [Moles/Vol] 22.8 mmol/L Normal 21.0-32.0 [facility] Comment on above: Performed By: #### B MP #### [facility] [address] [place] [address] Dr. Leonides Anders Creatinine [Mass/Vol] 0.57 mg/dL Normal 0.55-1.02 [facility] Comment on above: Performed By: #### B MP #### [facility] [address] [place] [address] Dr. Leonides Anders EGFR-AF SYRIAN >60 Normal >=60 [facility] Comment on above: Performed By: #### B MP #### [facility] [address] [place] [address] Dr. Leonides Anders EGFR-NON AF SYRIAN >60 Normal >=60 [facility] Comment on above: Performed By: #### B MP #### [facility] [address] [place] [address] Dr. Leonides Anders Glucose [Mass/Vol] 119 mg/dL Critically high 74-106 T [facility] Comment on above: Performed By: #### B MP #### [facility] [address] [place] [address] Dr. Leonides Anders Potassium [Moles/Vol] 3.5 mmol/L Normal 3.5-5.1 [facility] Comment on above: Performed By: #### B MP #### [facility] [address] [place] [address] Dr. Leonides Anders Sodium [Moles/Vol] 126 mmol/L Critically low 136-145 Th [facility] Comment on above: Performed By: #### B MP #### [facility] [address] [place] [address] Dr. Leonides Anders Urea nitrogen [Mass/Vol] 4.0 mg/dL Critically low 7.0-18.0 [facility] Comment on above: Performed By: #### B MP #### [facility] [address] [place] [address] Dr. Leonides Anders Urea nitrogen/Creatinine [Mass ratio] 7.0 mg/mg Normal [facility] Comment on above: Performed By: #### B MP #### [facility] [address] [place] [address] Dr. Leonides Anders VITAMIN B12on 03-25-2022 Cobalamin (Vitamin B12) [Mass/Vol] 192.0 pg/mL Critically low 193.0-986.0 [facility] Comment on above: Performed By: #### V ITB12 #### [facility] [address] [place], [place] [address] Dr. Leonides Anders VIT D 1 25 DIHYDROXYon 12-06 Calcitriol(1,25 di-OH Vit D) 57.4 pg/mL Normal 24.8-81.5 [facility] Comment on above: Result Comment: Pl ease note reference interval change Performed By: #### V [id number] ####[facility] [address] [address]Dr. Leonides Anders CBC AUTO DIFFon 12-04-2021 BASO # 0.1 103/ul Normal 0.0-0.1 [facility] Comment on above: Performed By: #### C BC ####[facility] [address] [address]Dr. Leonides Anders Basophils/100 WBC (Bld) 0.5 % Normal 0.2-2.0 [facility] Comment on above: Performed By: #### C BC ####[facility] [address] [address]Dr. Leonides Anders EO # 0.2 103/ul Normal 0.0-0.7 [facility] Comment on above: Performed By: #### C BC ####[facility] [address] [address]Dr. Leonides Anders Eosinophils/100 WBC (Bld) 2.3 % Normal 0.9-7.0 The [facility] Comment on above: Performed By: #### C BC ####[facility] [address] [place], [place] [address]Dr. Leonides Anders Erythrocyte distribution width (RBC) [Ratio] 13.6 % Normal 11.0-15.0 [facility] Comment on above: Performed By: #### C BC ####[facility] [address] [address]Dr. Leonides Anders Hematocrit (Bld) [Volume fraction] 42.1 % Normal 36.0-48.0 [facility] Comment on above: Performed By: #### C BC ####[facility] [address] [address]Dr. Leonides Anders Hemoglobin (Bld) [Mass/Vol] 14.4 g/dL Normal 12.0-16.0 [facility] Comment on above: Performed By: #### C BC ####[facility] [address] [address]Dr. Leonides Anders IG # 0.02 10e3/ul Normal 0.00-0.03 The [facility] Comment on above: Performed By: #### C BC ####[facility] [address] [place], [place] [address]Dr. Leonides Anders IG % 0.2 % Normal 0.0-0.5 [facility] Comment on above: Performed By: #### C BC ####[facility] [address] [place], [place] [address]Dr. Leonides Anders LYMPH # 3.6 103/ul Normal 1.2-3.8 The [facility] Comment on above: Performed By: #### C BC ####[facility] [address] [place], [place] [address]Dr. Leonides Chago Lymphocytes/100 WBC (Bld) 38.3 % Normal 20.5-60.0 The [facility] Comment on above: Performed By: #### C BC ####[facility] [address] [place], [place] [address]Dr. Leonides Chago MANUAL DIFF REQ NO Normal [facility] Comment on above: Performed By: #### C BC ####[facility] [address] [place], [place] [address]Dr. Leonides Anders MCH (RBC) [Entitic mass] 31.0 pg Normal 26.7-34.0 The [facility] Comment on above: Performed By: #### C BC ####[facility] [address] [place], [place] [address]Dr. Kanikatorey Anders MCHC (RBC) [Mass/Vol] 34.2 g/dL Normal 29.9-35.2 [facility] Comment on above: Performed By: #### C BC ####[facility] [address] [address]Dr. Leonides Chago MCV (RBC) [Entitic vol] 90.5 fL Normal 81.0-99.0 The [facility] Comment on above: Performed By: #### C BC ####[facility] [address] [place], [place] [address]Dr. Leonides Chago MONO # 0.8 103/ul Normal 0.3-0.8 [facility] Comment on above: Performed By: #### C BC ####[facility] [address] [place], [place] [address]Dr. Kanikatorey Anders Monocytes/100 WBC (Bld) 8.7 % Normal 1.7-12.0 The [facility] Comment on above: Performed By: #### C BC ####[facility] [address] [place], [place] [address]Dr. Leonides Chago NEUT # 4.7 103/ul Normal 1.4-6.5 [facility] Comment on above: Performed By: #### C BC ####[facility] [address] [place], [place] [address]Dr. Kanikatorey Anders Neutrophils/100 WBC (Bld) 50.0 % Normal 43.0-75.0 The [facility] Comment on above: Performed By: #### C BC ####[facility] [address] [place], [place] [address]Dr. Leonides Anders Platelet mean volume (Bld) [Entitic vol] 9.3 fL Critically low 9.5-13.5 The [facility] Comment on above: Performed By: #### C BC ####[facility] [address] [place], [place] [address]Dr. Leonides Anders PLT 263 103/ul Normal 150-450 The [facility] Comment on above: Performed By: #### C BC ####[facility] [address] [place], [place] [address]Dr. Leonides Anders RBC 4.65 106/ul Normal 4.20-5.40 The [facility] Comment on above: Performed By: #### C BC ####[facility] [address] [place], [place] [address]Dr. Leonides Anders WBC 9.5 103/ul Normal 4.0-11.0 [facility] Comment on above: Performed By: #### C BC ####[facility] [address] [place], [place] [address]JfDr. Leonides Anders FERRITINon 12-04-2021 Ferritin [Mass/Vol] 69.0 ng/mL Normal 8.0-252.0 [facility] Comment on above: Performed By: #### F ERR, VITB12 #### [facility] [address] [address] [address] Leonides Anders LIPID PROFILEon 12-04-2021 CHOL-HDL RATIO NORM SEE BELOW Normal [facility] Comment on above: Result Comment: 3.3 - 4.4 LOW RISK 4.4 - 7.1 AVERAGE RISK 7.1 - 11.0 MODERATE RISK >11.0 HIGH RISK Performed By: #### C MP, LIPID #### [facility] [address] [address] [address] Leonides Anders Cholesterol [Mass/Vol] 234 mg/dL Critically high <=200 The [facility] Comment on above: Performed By: #### C MP, LIPID #### [facility] [address] [address] [address] Leonides Anders Cholesterol in HDL [Mass/Vol] 48 mg/dL Normal 40-60 The [facility] Comment on above: Performed By: #### C MP, LIPID #### [facility] [address] [address] [address] Leonides Anders Cholesterol in LDL [Mass/Vol] 150.8 mg/dL Normal The [facility] Comment on above: Performed By: #### C MP, LIPID #### [facility] [address] [address] [address] Leonides Anders Cholesterol.total/Ch olesterol in HDL [Mass ratio] 4.9 {ratio} Normal The [facility] Comment on above: Performed By: #### C MP, LIPID #### [facility] [address] [place] [address] Dr. Leonides Anders HDL NORMAL > or = 60 mg/dl - LOW CARDIOVASCULAR RISK <40 mg/dl - HIGH CARDIOVASCULAR RISK Normal [facility] Comment on above: Performed By: #### C MP, LIPID #### [facility] [address] [place] [address] Dr. Leonides Anders LDL CALC NORMAL SEE BELOW Normal The [facility] Comment on above: Result Comment: <100 mg/dl OPTIMAL 100 - 129 mg/dl NEAR OR ABOVE OPTIMAL 130 - 159 mg/dl BORDERLINE HIGH 160 - 189 mg/dl HIGH >190 mg/dl VERY HIGH Performed By: #### C MP, LIPID #### [facility] [address] [place] [address] Dr. Leonides Anders Triglyceride [Mass/Vol] 176 mg/dL Critically high <=150 [facility] Comment on above: Performed By: #### C MP, LIPID #### [facility] [address] [place] [address] Dr. Leonides Anders VLDL CALC 35.2 mg/dL Normal [facility] Comment on above: Performed By: #### C MP, LIPID #### [facility] [address] [place] [address] Dr. Leonides Anders PROF 14(COMP METB)on 022 Albumin [Mass/Vol] 4.3 g/dL Normal 3.4-5.0 [facility] Comment on above: Performed By: #### C MP, LIPID #### [facility] [address] [place] [address] Dr. Leonides Anders Albumin/Globulin [Mass ratio] 1.3 {ratio} Normal [facility] Comment on above: Performed By: #### C MP, LIPID #### [facility] [address] [place] [address] Dr. Leonides Anders ALP [Catalytic activity/Vol] 96 U/L Normal 46-116 [facility] Comment on above: Performed By: #### C MP, LIPID #### [facility] [address] [place] [address] Dr. Leonides Anders ALT [Catalytic activity/Vol] 27 U/L Normal 14-59 [facility] Comment on above: Performed By: #### C MP, LIPID #### [facility] [address] [place] [address] Dr. Leonides Anders Anion gap [Moles/Vol] 12.5 mmol/L Normal [facility] Comment on above: Performed By: #### C MP, LIPID #### [facility] [address] [place] [address] Dr. Leonides Anders AST [Catalytic activity/Vol] 16 U/L Normal 15-37 [facility] Comment on above: Performed By: #### C MP, LIPID #### [facility] [address] [place] [address] Dr. Leonides Anders Bilirubin [Mass/Vol] 0.3 mg/dL Normal 0.2-1.0 [facility] Comment on above: Performed By: #### C MP, LIPID #### [facility] [address] [place] [address] Dr. Leonides Anders Calcium [Mass/Vol] 9.5 mg/dL Normal 8.5-10.1 [facility] Comment on above: Performed By: #### C MP, LIPID #### [facility] [address] [place] [address] Dr. Leonides Anders Chloride [Moles/Vol] 98 mmol/L Normal 98-107 [facility] Comment on above: Performed By: #### C MP, LIPID #### [facility] [address] [place] [address] Dr. Leonides Anders CO2 [Moles/Vol] 27.5 mmol/L Normal 21.0-32.0 [facility] Comment on above: Performed By: #### C MP, LIPID #### [facility] [address] [place] [address] Dr. Leonides Anders Creatinine [Mass/Vol] 0.82 mg/dL Normal 0.55-1.02 [facility] Comment on above: Performed By: #### C MP, LIPID #### [facility] [address] [place] [address] Dr. Leonides Anders EGFR-AF SYRIAN >60 Normal >=60 [facility] Comment on above: Performed By: #### C MP, LIPID #### [facility] [address] [address] [address] Leonides Anders EGFR-NON AF SYRIAN >60 Normal >=60 [facility] Comment on above: Performed By: #### C MP, LIPID #### [facility] [address] [address] [address] Leonides Anders Globulin (S) [Mass/Vol] 3.4 g/dL Normal [facility] Comment on above: Performed By: #### C MP, LIPID #### [facility] [address] [address] [address] Leonides Anders Glucose [Mass/Vol] 98 mg/dL Normal 74-106 [facility] Comment on above: Performed By: #### C MP, LIPID #### [facility] [address] [address] [address] Leonides Anders Potassium [Moles/Vol] 4.0 mmol/L Normal 3.5-5.1 [facility] Comment on above: Performed By: #### C MP, LIPID #### [facility] [address] [address] [address] Leonides Anders Protein [Mass/Vol] 7.7 g/dL Normal 6.4-8.2 [facility] Comment on above: Performed By: #### C MP, LIPID #### [facility] [address] [address] [address] Leonides Anders Sodium [Moles/Vol] 134 mmol/L Critically low 136-145 [facility] Comment on above: Performed By: #### C MP, LIPID #### [facility] [address] [address] [address] Leonides Anders Urea nitrogen [Mass/Vol] 9.0 mg/dL Normal 7.0-18.0 [facility] Comment on above: Performed By: #### C MP, LIPID #### [facility] [address] [address] [address] Leonides Anders Urea nitrogen/Creatinine [Mass ratio] 11.0 mg/mg Normal The [facility] Comment on above: Performed By: #### C MP, LIPID #### [facility] [address] [place] [address] Dr. Leonides Anders US SINGLE QUAD RT [...] TUYET JONES Date: 2021-12-04 19:11 Normal The [facility] VITAMIN B12on 12-04-2021 Cobalamin (Vitamin B12) [Mass/Vol] 232.0 pg/mL Normal 193.0-986.0 [facility] Comment on above: Performed By: #### F ERR, VITB12 #### [facility] [address] [place] [address] Dr. Leonides Anders CBC AUTO DIFFon 11-03-2021 BASO # 0.0 103/ul Normal 0.0-0.1 The [facility] Comment on above: Performed By: #### C BC #### [facility] [address] [place] [address] Dr. Leonides Anders Basophils/100 WBC (Bld) 0.6 % Normal 0.2-2.0 [facility] Comment on above: Performed By: #### C BC #### [facility] [address] [place] [address] Dr. Leonides Anders EO # 0.1 103/ul Normal 0.0-0.7 [facility] Comment on above: Performed By: #### C BC #### [facility] [address] [place] [address] Dr. Leonides Anders Eosinophils/100 WBC (Bld) 0.9 % Normal 0.9-7.0 [facility] Comment on above: Performed By: #### C BC #### [facility] [address] [place] [address] Dr. Leonides Anders Erythrocyte distribution width (RBC) [Ratio] 14.1 % Normal 11.0-15.0 [facility] Comment on above: Performed By: #### C BC #### [facility] [address] [place] [address] Dr. Leonides Anders Hematocrit (Bld) [Volume fraction] 44.9 % Normal 36.0-48.0 [facility] Comment on above: Performed By: #### C BC #### [facility] [address] [place] [address] Dr. Leonides Anders Hemoglobin (Bld) [Mass/Vol] 15.4 g/dL Normal 12.0-16.0 [facility] Comment on above: Performed By: #### C BC #### [facility] [address] [place] [address] Dr. Leonides Anders IG # 0.02 10e3/ul Normal 0.00-0.03 The [facility] Comment on above: Performed By: #### C BC #### [facility] [address] [place] [address] Dr. Leonides Anders IG % 0.3 % Normal 0.0-0.5 The [facility] Comment on above: Performed By: #### C BC #### [facility] [address] [place] [address] Dr. Leonides Anders LYMPH # 1.4 103/ul Normal 1.2-3.8 The [facility] Comment on above: Performed By: #### C BC #### [facility] Laboratory [address] [place] [address] Dr. Leonides Anders Lymphocytes/100 WBC (Bld) 20.3 % Critically low 20.5-60.0 The [facility] Comment on above: Performed By: #### C BC #### [facility] [address] [place] [address] Dr. Leonides Anders MANUAL DIFF REQ NO Normal The [facility] Comment on above: Performed By: #### C BC #### [facility] [address] [place] [address] Dr. Leonides Anders MCH (RBC) [Entitic mass] 30.6 pg Normal 26.7-34.0 [facility] Comment on above: Performed By: #### C BC #### [facility] [address] [place] [address] Dr. Leonides Anders MCHC (RBC) [Mass/Vol] 34.3 g/dL Normal 29.9-35.2 The [facility] Comment on above: Performed By: #### C BC #### [facility] [address] [place] [address] Dr. Leonides Anders MCV (RBC) [Entitic vol] 89.3 fL Normal 81.0-99.0 [facility] Comment on above: Performed By: #### C BC #### [facility] [address] [place] [address] Dr. Leonides Anders MONO # 0.4 103/ul Normal 0.3-0.8 [facility] Comment on above: Performed By: #### C BC #### [facility] [address] [place] [address] Dr. Leonides Anders Monocytes/100 WBC (Bld) 6.3 % Normal 1.7-12.0 The [facility] Comment on above: Performed By: #### C BC #### [facility] [address] [place] [address] Dr. Leonides Anders NEUT # 4.9 103/ul Normal 1.4-6.5 The [facility] Comment on above: Performed By: #### C BC #### [facility] [address] [place] [address] Dr. Leonides Anders Neutrophils/100 WBC (Bld) 71.6 % Normal 43.0-75.0 The [facility] Comment on above: Performed By: #### C BC #### [facility] [address] [place] [address] Dr. Leonides Anders Platelet mean volume (Bld) [Entitic vol] 9.1 fL Critically low 9.5-13.5 The [facility] Comment on above: Performed By: #### C BC #### [facility] [address] [place] [address] Dr. Leonides Anders PLT 235 103/ul Normal 150-450 The [facility] Comment on above: Performed By: #### C BC #### [facility] [address] [place] [address] Dr. Leonides Anders RBC 5.03 106/ul Normal 4.20-5.40 [facility] Comment on above: Performed By: #### C BC #### [facility] [address] [place] [address] Dr. Leonieds Anders WBC 6.8 103/ul Normal 4.0-11.0 [facility] Comment on above: Performed By: #### C BC #### [facility] [address] [place] [address] ABD/PELV W CONon [...] MARGARET PARRA Date: 2021-11-03 10:51 Normal The [facility] LACTATE/LACTIC ACIDon 2021 Lactate [Moles/Vol] 0.9 mmol/L Normal 0.4-1.9 [facility] Comment on above: Performed By: #### L ACT ####[facility] [address] [place] [address]DrAna Anders LIPASEon 11-03-2021 Lipase [Catalytic activity/Vol] 44.0 U/L Critically low 73.0-393.0 [facility] Comment on above: Performed By: #### L IPA, CMP ####[facility] [address] [place], [place] [address]DrAna Anders PROF 14(COMP METB)on 022 Albumin [Mass/Vol] 4.3 g/dL Normal 3.4-5.0 [facility] Comment on above: Performed By: #### L IPA, CMP ####[facility] [address] [place], [place] [address]DrAna Anders Albumin/Globulin [Mass ratio] 1.3 {ratio} Normal [facility] Comment on above: Performed By: #### L IPA, CMP ####[facility] [address] [place], [place] [address]Dr. Leonides Anders ALP [Catalytic activity/Vol] 95 U/L Normal 46-116 The [facility] Comment on above: Performed By: #### L IPA, CMP ####[facility] [address] [place], [place] [address]DrAna Anders ALT [Catalytic activity/Vol] 20 U/L Normal 14-59 [facility] Comment on above: Performed By: #### L IPA, CMP ####[facility] [address] [place], [place] [address]DrAna Anders Anion gap [Moles/Vol] 14.9 mmol/L Normal [facility] Comment on above: Performed By: #### L IPA, CMP ####[facility] [address] [place], [place] [address]Dr. Leonides Anders AST [Catalytic activity/Vol] 21 U/L Normal 15-37 [facility] Comment on above: Performed By: #### L IPA, CMP ####[facility] [address] [place], [place] [address]Dr. Leonides Anders Bilirubin [Mass/Vol] 0.5 mg/dL Normal 0.2-1.0 The [facility] Comment on above: Performed By: #### L IPA, CMP ####[facility] [address] [place], [place] [address]Dr. Leonides Anders Calcium [Mass/Vol] 9.6 mg/dL Normal 8.5-10.1 [facility] Comment on above: Performed By: #### L IPA, CMP ####[facility] [address] [place], [place] [address]Dr. Leonides Anders Chloride [Moles/Vol] 99 mmol/L Normal 98-107 The [facility] Comment on above: Performed By: #### L IPA, CMP ####[facility] [address] [place], [place] [address]Dr. Leonides Anders CO2 [Moles/Vol] 23.1 mmol/L Normal 21.0-32.0 [facility] Comment on above: Performed By: #### L IPA, CMP ####[facility] [address] [place], [place] [address]Dr. Leonides Anders Creatinine [Mass/Vol] 0.69 mg/dL Normal 0.55-1.02 The [facility] Comment on above: Performed By: #### L IPA, CMP ####[facility] [address] [place], [place] [address]Dr. Leonides Anders EGFR-AF SYRIAN >60 Normal >=60 [facility] Comment on above: Performed By: #### L IPA, CMP ####[facility] [address] [place], [place] [address]Dr. Leonides Anders EGFR-NON AF SYRIAN >60 Normal >=60 [facility] Comment on above: Performed By: #### L IPA, CMP ####[facility] [address] [place], [place] [address]Dr. Leonides Anders Globulin (S) [Mass/Vol] 3.4 g/dL Normal [facility] Comment on above: Performed By: #### L IPA, CMP ####[facility] [address] [place], [place] [address]Dr. Leonides Anders Glucose [Mass/Vol] 121 mg/dL Critically high 74-106 T [facility] Comment on above: Performed By: #### L IPA, CMP ####[facility] [address] [place], [place] [address]Dr. Leonides Anders Potassium [Moles/Vol] 4.0 mmol/L Normal 3.5-5.1 [facility] Comment on above: Performed By: #### L IPA, CMP ####[facility] [address] [place], [place] [address]Dr. Leonides Anders Protein [Mass/Vol] 7.7 g/dL Normal 6.4-8.2 [facility] Comment on above: Performed By: #### L IPA, CMP ####[facility] [address] [place], [place] [address]Dr. Leonides Anders Sodium [Moles/Vol] 133 mmol/L Critically low 136-145 Th [facility] Comment on above: Performed By: #### L IPA, CMP ####[facility] [address] [place], [place] [address]Dr. Leonides Anders Urea nitrogen [Mass/Vol] 6.0 mg/dL Critically low 7.0-18.0 [facility] Comment on above: Performed By: #### L IPA, CMP ####[facility] [address] [place], [place] [address]Dr. Leonides Anders Urea nitrogen/Creatinine [Mass ratio] 8.7 mg/mg Normal [facility] Comment on above: Performed By: #### L IPA, CMP ####[facility] [address] [place] [address]Xm[address] Leonides Anders TROPONIN, HIGH SENSITIVITYon 11-03-2021 HSTROP 6.0 pg/mL Normal 4.0-51.3 The [facility] Comment on above: Result Comment: CUT- OFF POINTS HAVE BEEN ESTABLISHED BASED ON THE FOURTH UNIVERSAL DEFINITIONS OF MYOCARDIAL INFARCTION. THE UPPER REFERENCE LIMIT (URL) OF TROPONIN, DEFINED THE 99TH PERCENTILE OF cTnI DISTRIBUTION IN A REFERENCE POPULATION, HAS BEEN CONFIRMED THE DECISION THRESHOLD FOR [place] DIAGNOSIS. Performed By: #### H STROPN ####[facility] [address] [place], [place] [address]Ll. 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] Order(s):CBC + DIFF (FOR REMOTE [facility] USE) [SQRCBCDF] Order #: [id number] STANDING COMP METABOLIC PANEL [SQCMP] Order #: [id number] STANDING FERRITIN BLD [SQFERR] Order #: [id number] STANDING IRON + TIBC [SQIRON] Order #: [id number] STANDING VITAMIN B12 BLOOD [SQB12] Order #: [id number] STANDING Prescriptions as of 11/30/2020 - amitriptyline [...] Encounter Status:Closed by MICHELLE ALLISON on 11/30/20 [facility] CNOVSPon 11-08-2020 CNOVSP Visit (SP) Office (HEMASA) CANDY BOOTH ([id number]) 1970 F Date Time Provider Department 11/08/20 1:30 PM ARIANA MATUTE During your visit today, we recorded the following information about you: Temperature Pulse Respiration Blood pressure 97.2 degrees 94/minute 16/minute 118/79 Weight Height 92.4 kg 1.702 m Ariana Matute APRN.CNP 11/08/2020 3:37 PM Signed NAME: Candy Booth CLINIC NO.: [id number] DATE OF SERVICE: November 08, 2020 Referring Provider: Dr. Maureen Gilmore (Elements copied from note dated 10/11/2020 have [...] pill endoscopy. 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 She has primary complaints of fatigue but [...] cap capsule (more content not included)... Normal [facility] Comp Metabolic Panelon 11-08 Albumin [Mass/Vol] 4.4 g/dL Normal 3.9-4.9 [facility] Comment on above: Performed By: #### F ERR, B12, IRON #### [facility] [address] [place], [place] [address] ALP [Catalytic activity/Vol] 111 U/L Normal 34-123 [facility] Comment on above: Performed By: #### F ERR, B12, IRON #### [facility] [address] [place], [place] [address] ALT [Catalytic activity/Vol] 7 U/L Normal 7-38 [facility] Comment on above: Performed By: #### F ERR, B12, IRON #### [facility] [address] [place], [place] [address] Anion gap [Moles/Vol] 7 mmol/L Low 9-18 [facility] Comment on above: Performed By: #### F ERR, B12, IRON #### [facility] [address] [place], [place] [address] AST [Catalytic activity/Vol] 17 U/L Normal 13-35 [facility] Comment on above: Performed By: #### F ERR, B12, IRON #### [facility] [address] [place], [place] [address] Bilirubin [Mass/Vol] mg/dL Low 0.2-1.3 [facility] Comment on above: Performed By: #### F ERR, B12, IRON #### [facility] [address] [place], [place] [address] Calcium [Mass/Vol] 9.7 mg/dL Normal 8.5-10.2 [facility] Comment on above: Performed By: #### F ERR, B12, IRON #### [facility] [address] [place], [place] [address] Chloride [Moles/Vol] 100 mmol/L Normal 97-105 [facility] Comment on above: Performed By: #### F ERR, B12, IRON #### [facility] [address] [place], [place] [address] CO2 [Moles/Vol] 26 mmol/L Normal 22-30 [facility] Comment on above: Performed By: #### F ERR, B12, IRON #### [facility] [address] [place] [phone] Creatinine [Mass/Vol] 0.63 mg/dL Normal 0.58-0.96 [facility] Comment on above: Performed By: #### F ERR, B12, IRON #### [facility] [address] [place] [phone] eGFR- Amer. >60 Normal [facility] Comment on above: Performed By: #### F ERR, B12, IRON #### [facility] [address] [place] [phone] eGFR-All Other Races >60 Normal [facility] Comment on above: Result Comment: eGFR (Estimated [...] By: #### F ERR, B12, IRON #### [facility] [address] [place] [phone] Glucose [Mass/Vol] 104 mg/dL High 74-99 [facility] Comment on above: Result Comment: The [place] Diabetes Association (ADA) provides guidance for cutoff [...] Standards of Medical Care in Diabetes 2016, [place] Diabetes Association. Diabetes Care. 2016.39(Suppl 1). Performed By: #### F ERR, B12, IRON #### [facility] [address] [place], [place] [address] Potassium [Moles/Vol] 4.4 mmol/L Normal 3.7-5.1 [facility] Comment on above: Performed By: #### F ERR, B12, IRON #### [place] [address] [place] [address] Protein [Mass/Vol] 6.9 g/dL Normal 6.3-8.0 [facility] Comment on above: Performed By: #### F ERR, B12, IRON #### [place] [address] Sodium [Moles/Vol] 133 mmol/L Low 136-144 [facility] Comment on above: Performed By: #### F ERR, B12, IRON #### [place] [address] Urea nitrogen [Mass/Vol] 9 mg/dL Normal 7-21 [facility] Comment on above: Performed By: #### F ERR, B12, IRON #### [place] [address] Ferritinon 11-08-2020 Ferritin [Mass/Vol] 13.1 ng/mL Low 14.7-205.1 [facility] Comment on above: Performed By: #### F ERR, B12, IRON #### [place] [address] [place] [address] Iron and TIBCon 11-08-2020 Iron [Mass/Vol] 29 ug/dL Low 41-186 [facility] Comment on above: Performed By: #### F ERR, B12, IRON #### [place] [address] TIBC 405 ug/dL High 232-386 [facility] Comment on above: Performed By: #### F ERR, B12, IRON #### [facility] [address] [place], [place] [address] Transferrin Saturatn 7 % Low 15-57 [facility] Comment on above: Performed By: #### F ERR, B12, IRON #### [facility] [address] [place], [place] [address] Remote CBCDIF (for [facility] use o nly)on 11-08-2020 Abs Baso 0.04 k/uL Normal <0.11 [facility] Abs [place] 0.79 k/uL Normal <0.87 [facility] Abs Neut 8.64 k/uL High 1.45-7.50 [facility] Absolute nRBC <0.01 Normal <0.01 [facility] Basophils/100 WBC (Bld) 0.3 % Normal [facility] DTYPE Auto Diff Normal [facility] Eosinophils (Bld) [#/Vol] 0.11 10*3/uL Normal <0.46 [facility] Eosinophils/100 WBC (Bld) 0.9 % Normal [facility] Erythrocyte distribution width (RBC) [Ratio] 18.0 % High 11.5-15.0 [facility] Hematocrit (Bld) [Volume fraction] 34.8 % Low 36.0-46.0 [facility] Hemoglobin (Bld) [Mass/Vol] 11.2 g/dL Low 11.5-15.5 [facility] Lymphocytes (Bld) [#/Vol] 2.16 10*3/uL Normal 1.00-4.00 [facility] Lymphocytes/100 WBC (Bld) 18.4 % Normal [facility] MCH 25.5 pG Low 26.0-34.0 [facility] MCHC (RBC) [Mass/Vol] 32.2 g/dL Normal 30.5-36.0 [facility] MCV (RBC) [Entitic vol] 79.1 fL Low 80.0-100.0 [facility] Monocytes/100 WBC (Bld) 6.7 % Normal [facility] Neutrophils/100 WBC (Bld) 73.7 % Normal [facility] NRBCs 0.0 /100 WBC Normal 0 [facility] Platelet mean volume (Bld) [Entitic vol] 9.3 fL Normal 9.0-12.7 [facility] Platelets (Bld) [#/Vol] 253 10*3/uL Normal 150-400 [facility] RBC (Bld) [#/Vol] 4.40 10*6/uL Normal 3.90-5.20 [facility] WBC (Bld) [#/Vol] 11.74 10*3/uL High 3.70-11.00 [facility] Vitamin B12on 11-08-2020 Cobalamin (Vitamin B12) [Mass/Vol] 236 pg/mL Normal 232-1245 [facility] Comment on above: Performed By: #### F ERR, B12, IRON #### [facility] [address] [place] [address] CNPNon 11-02-2020 CNPN Telephone (HEMASA) CANDY BOOTH ([id number]) 1970 F Date Time Provider Department 11/02/20 ARIANA MATUTE During your visit today, we recorded the following information about you: Analisa Avalos 11/02/2020 8:07 AM Signed Patient schedule to see you Friday11/08/20 for follow up lab. Please sign pending cbc order. Thanks, Analisa Avalos Allergies As of Date: 11/02/2020 Noted Allergy [...] Fully Assessed Reason for Visit: Lab Orders [1638] Primary Visit Diagnosis:Megaloblas tic anemia due to [...] bypass [Z98.84] 10/11/2020 Encounter Status:Closed by ANALISA AVALOS on 11/06/[address] [facility] 10-11-2020 CNNURSE Nurse Visit (HEMASA) CANDY BOOTH ([id number]) 1970 F Date Time Provider Department 10/11/20 4:00 PM THANH NURSE PAUL VICTORIA HEMJAMIE During your visit today, we recorded the following information about you: Analisa Avalos 10/11/2020 4:09 PM Signed Patient Identification confirmed: yes. Injection given and documented on JUL per provider order. Analisa Avalos Referring Provider: SARITHA AMAYA [[id number]] Allergies As of Date: 10/11/2020 Noted Allergy [...] Linsey-en-Y gastric bypass [Z98.84] Order(s):TREATMENT PARAMETER-NOT NEEDED [[id number]] Order #: [id number]: 1 HEMON NURSING COMMUNICATION [[id number]] Order #: [id number]: 1 STANDING [] cyanocobalamin 1,000 mcg injectionDisp: [...] bypass [Z98.84] 10/11/2020 Visit Notes: >> Analisa Avalos FriOctober 11, 2020 4:07 PM Status: Signed Patient Identification confirmed: yes. Injection given and documented on JUL per provider order. August Bailey Prescriptions ordered this encounter Disp Refills Start End CYANOCOBALAMIN (VIT B-12) 1,000 MCG/* 10/11/2020 10/11/2020 Route: INTRAMUSCULA Encounter Status:Closed by BAILEY AUGUST on 10/11/20 [facility] LIZETTEOVSOlu 10-11-2020 CNOVSP Visit (SP) Office (HEMASA) CANDY BOOTH ([id number]) 1970 F Date Time Provider Department 10/11/20 3:15 PM SARITHA AMAYA During your visit today, we recorded the following information about you: Temperature Pulse Respiration Blood pressure 96.9 degrees 120/minute 16/minute 111/60 Weight Height 92.3 kg 1.702 m Saritha Amaya MD 10/21/2020 6:59 PM Signed NAME: Candy Booth CLINIC NO.: [id number] DATE OF SERVICE: October 11, 2020 Referring Provider: Maureen Gilmore Consultation requested by Dr. Gilmore for an opinion regarding Ms. Candy Booth, and my final recommendations will be communicated back to the requesting physician by way of shared medical record or letter via US mail. Additional Clinicians involved in Cadny Booth's care: CC: Consultation for iron deficiency [...] pill endoscopy. 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 Normal [facility] Comp Metabolic Panelon 10-11 Albumin [Mass/Vol] 4.2 g/dL Normal 3.9-4.9 [facility] ALP [Catalytic activity/Vol] 102 U/L Normal 34-123 [facility] ALT [Catalytic activity/Vol] 7 U/L Normal 7-38 [facility] Anion gap [Moles/Vol] 10 mmol/L Normal 9-18 [facility] AST [Catalytic activity/Vol] 19 U/L Normal 13-35 [facility] Bilirubin [Mass/Vol] mg/dL Low 0.2-1.3 [facility] Calcium [Mass/Vol] 9.7 mg/dL Normal 8.5-10.2 [facility] Chloride [Moles/Vol] 98 mmol/L Normal 97-105 [facility] CO2 [Moles/Vol] 22 mmol/L Normal 22-30 [facility] Creatinine [Mass/Vol] 0.58 mg/dL Normal 0.58-0.96 [facility] eGFR- Amer. >60 Normal [facility] eGFR-All Other Races >60 Normal [facility] Comment on above: Result Comment: eGFR (Estimated GFR) Units of measure: mL/min/1.73 meters squared eGFR is derived from the reexpressed MDRD Study equation using the following parameters: serum creatinine, age, gender and race. The creatinine assay has been calibrated to be traceable to [employer]. An eGFR <60 mL/min/1.73m2 for >3 months is consistent with chronic kidney disease. Refer to KDOQI guidelines for clinical interpretation. In patients with unstable renal function, e.g. those with acute kidney injury, the eGFR may not accurately reflect actual GFR. Glucose [Mass/Vol] 106 mg/dL High 74-99 [facility] Comment on above: Result Comment: The [place] Diabetes Association (ADA) provides guidance for cutoff [...] Standards of Medical Care in Diabetes 2016, [place] Diabetes Association. Diabetes Care. 2016.39(Suppl 1). Potassium [Moles/Vol] 4.2 mmol/L Normal 3.7-5.1 [facility] Protein [Mass/Vol] 7.2 g/dL Normal 6.3-8.0 [facility] Sodium [Moles/Vol] 130 mmol/L Low 136-144 [facility] Urea nitrogen [Mass/Vol] 3 mg/dL Low 7-21 [facility] Ferritinon 10-11-2020 Ferritin [Mass/Vol] 23.6 ng/mL Normal 14.7-205.1 [facility] Comment on above: Performed By: #### I RYAN, B12, SERFOL, FERR #### [facility] [address] [place], [place] [id number] Folate, Serumon 10-11-2020 Folate [Mass/Vol] 12.7 ng/mL Normal >4.7 [facility] Comment on above: Performed By: #### I RYAN, B12, SERFOL, FERR #### [facility] [address] [place], [place] [id number] Iron and TIBCon 10-11-2020 Iron [Mass/Vol] 22 ug/dL Low 41-186 [facility] Comment on above: Performed By: #### I RYAN, B12, SERFOL, FERR #### [facility] [address] [place] [id number] TIBC 386 ug/dL Normal 232-386 [facility] Comment on above: Performed By: #### I RYAN, B12, SERFOL, FERR #### [facility] [address] [place] [id number] Transferrin Saturatn 6 % Low 15-57 [facility] Comment on above: Performed By: #### I RYAN, B12, SERFOL, FERR #### [facility] [address] [place] [address] LDon 10-11-2020 LD 182 U/L Normal 135-214 [facility] Remote CBCDIF (for [facility] use o nly)on 10-11-2020 Abs Baso 0.05 k/uL Normal <0.11 [facility] Abs [place] 0.67 k/uL Normal <0.87 [facility] Abs Neut 6.73 k/uL Normal 1.45-7.50 [facility] Absolute nRBC <0.01 Normal <0.01 [facility] Basophils/100 WBC (Bld) 0.5 % Normal [facility] DTYPE Auto Diff Normal [facility] Eosinophils (Bld) [#/Vol] 0.13 10*3/uL Normal <0.46 [facility] Eosinophils/100 WBC (Bld) 1.4 % Normal [facility] Erythrocyte distribution width (RBC) [Ratio] 18.4 % High 11.5-15.0 [facility] Hematocrit (Bld) [Volume fraction] 34.7 % Low 36.0-46.0 [facility] Hemoglobin (Bld) [Mass/Vol] 11.0 g/dL Low 11.5-15.5 [facility] Lymphocytes (Bld) [#/Vol] 2.00 10*3/uL Normal 1.00-4.00 [facility] Lymphocytes/100 WBC (Bld) 20.9 % Normal [facility] MCH 25.7 pG Low 26.0-34.0 [facility] MCHC (RBC) [Mass/Vol] 31.7 g/dL Normal 30.5-36.0 [facility] MCV (RBC) [Entitic vol] 81.1 fL Normal 80.0-100.0 [facility] Monocytes/100 WBC (Bld) 7.0 % Normal [facility] Neutrophils/100 WBC (Bld) 70.2 % Normal [facility] NRBCs 0.0 /100 WBC Normal 0 [facility] Platelet mean volume (Bld) [Entitic vol] 9.7 fL Normal 9.0-12.7 [facility] Platelets (Bld) [#/Vol] 338 10*3/uL Normal 150-400 [facility] RBC (Bld) [#/Vol] 4.28 10*6/uL Normal 3.90-5.20 [facility] WBC (Bld) [#/Vol] 9.58 10*3/uL Normal 3.70-11.00 [facility] Vitamin B12on 10-11-2020 Cobalamin (Vitamin B12) [Mass/Vol] 188 pg/mL Low 232-1245 [facility] Comment on above: Performed By: #### I RYAN, B12, SERFOL, FERR #### [facility] [address] [address] FLUORO FOR SURGICAL PROCEDUR ESon 02-09-2018 FLUORO [...] by:FANG Angeligned by:Callum Salinas MD02/09/18inal result Normal [facility] Surgical Specimenon 02-10-20 18 Surgical Specimen Invalid Interpretation Code [facility] Comment on above: Result Comment: [address] [address] NUQQ[place] SURGICAL PATHOLOGY REPORTPatient Name: CANDY BOOTH Accession No: [id number] Age Sex: 1970 Location: DIS ORPOOLNONAccount No: [id number] Collected: 02/09/2018Med Rec No: [id number] Received: 02/09/2018Attend Phys: RONAL REJI Completed: 02/11/2018Perform Phys: RONAL YOOFINAL DIAGNOSIS:DISC TISSUE, L4-5, LEFT-DEGENERATED CARTILAGE. SIVES/SIVESCLINICAL INFORMATION:L4-5 left HNP. Disk.SPECIMEN:DiscGROSS DESCRIPTION:Specimen container is labeled with the patient's name and designated spine . In formalin are multiple irregular shaggy fragments of villarreal andpink soft and firm tissue measuring in aggregate 3 x 2.5 x 0.5 cm.Majority of tissue is submitted in two cassettes. PUNEET/FLOYDT: [id number] ROMERO M.D. 02/11/2018 Electronically signed out by Page 1 of 1 Basic Metabolic Panelon 01-24 Anion gap 3 molar conc 12 mmol/L Normal 7-13 [facility] Calcium mass conc 9.2 mg/dL Normal 8.6-10.2 [facility] Chloride molar conc 102 mmol/L Normal 98-107 [facility] CO2 molar conc 25 mmol/L Normal 22-29 [facility] Creatinine mass conc 0.42 mg/dL Low 0.50-0.90 [facility] GFR/1.73 sq M predicted among blacks MDRD vol rate/area (S/P/Bld) mL/min/{1.73_m2} Normal >60 [facility] Comment on above: Result Comment: >60 mL/min/1.73m2 EGFR, calc. for ages 18 and older using theMDRD formula (not corrected for weight), is valid for stablerenal function. GFR/1.73 sq M.predicted MDRD vol rate/area mL/min/{1.73_m2} Normal >60 [facility] Comment on above: Result Comment: >60 mL/min/1.73m2 EGFR, calc. for ages 18 and older using theMDRD formula (not corrected for weight), is valid for stablerenal function. Glucose mass conc 82 mg/dL Normal 74-109 [facility] Potassium molar conc 4.2 mmol/L Normal 3.5-5.1 [facility] Sodium molar conc 139 mmol/L Normal 132-144 [facility] Urea nitrogen mass conc 6 mg/dL Normal 6-20 [facility] CBC With Platelet No Differe ntialon 02-06-2018 Erythrocyte distribution width Auto Ratio (RBC) 20.2 % Critically high 11.5-14.5 [facility] Hematocrit Auto Volume Fraction (Bld) 36.3 % Low 37.0-47.0 [facility] Hemoglobin mass conc (Bld) 11.5 g/dL Low 12.0-16.0 [facility] MCH Auto Entitic mass (RBC) 24.1 pg Low 27.0-31.3 [facility] MCHC Auto mass conc (RBC) 31.7 % Low 33.0-37.0 [facility] MCV Auto Entitic volume (RBC) 76.0 fL Low 82.0-100.0 [facility] Platelets Auto #/vol (Bld) 203 10*3/uL Normal 130-400 [facility] RBC Auto #/vol (Bld) 4.78 10*6/uL Normal 4.20-5.40 [facility] WBC Auto #/vol (Bld) 4.9 10*3/uL Normal 4.8-10.8 [facility] Partial Thromboplastin Timeo n 02-06-2018 aPTT Coag time (Bld) 26.6 s Normal 21.6-35.[address] [facility] Comment on above: Result Comment: Hepa rin Therapeutic Range: 38.8 - 54.6 seconds. Prothrombin Timeon 201 8 INR Coag RelTime (PPP) 0.9 {INR} Normal [facility] Comment on above: Result Comment: Madhu mmended [...] Coag time (PPP) 9.4 s Low 9.6-12.3 [facility] Type and Screen Capture 3 sc tiffanie mcpherson 02-06-2018 Bilirubin mass conc PATIENT: MEMY Acuña LOC: [facility] BILL# : [id number] : 1970 SEX: FORDERED BY: EMILY LUCERO ORDERED : 02/06/2018 07:42 COLLECTED: 02/06/2018 08:25ORDER : [id number] RECEIVED : 02/06/2018 08:25 ---TEST NAME RESULT UNITS RANGES ABN FL STABORH Capture O NEG FAntibody 3 Cell Scrn Captu NEG F Normal [facility] Urinalysis, reflex to cultur constantin 02-06-2018 Bilirubin Ql (U) Negative Normal Negative [facility] Clarity Nom (U) Clear Normal Clear [facility] Color Nom (U) Yellow Normal Straw/Luce [facility] Glucose Ql (U) Negative Normal Negative [facility] Hemoglobin Test strip Ql (U) Negative Normal Negative [facility] Ketones Ql (U) Negative Normal Negative [facility] Leukocyte esterase Test strip Ql (U) Negative Normal Negative [facility] Nitrite Test strip Ql (U) Negative Normal Negative [facility] pH Test strip (U) 6.0 [pH] Normal 5.0-9.0 [facility] Protein Test strip Ql (U) Negative Normal Negative [facility] Specific gravity Relative Density (U) 1.009 Normal 1.005-1.03 [facility] Urine Reflexed to Culture Not Indicated Normal [facility] Urobilinogen Test strip Qn (U) 0.2 {[place]'U}/dL Normal < 2.0 [facility] Vital Signs Date Time Vital Sign Value Performing Clinician Facility 02-01-2025 16:00-0400 Diastolic blood pressure 56 mm[Hg] Maureen Gilmore MD Work Phone: [facility] 02-01-2025 16:00-0400 Heart rate 84 /min Maureen Gilmore MD Work Phone: [facility] 02-01-2025 16:00-0400 Respiratory rate 16 /min Maureen Gilmore MD Work Phone: [facility] 02-01-2025 16:00-0400 SaO2% (BldA) [Mass fraction] 95 % Maureen Gilmore MD Work Phone: [facility] 02-01-2025 16:00-0400 Systolic blood pressure 116 mm[Hg] Maureen Gilmore MD Work Phone: [facility] 02-01-2025 12:00-0400 Body temperature 97.2 [degF] Maureen Gilmore MD Work Phone: [facility] 02-01-2025 12:00-0400 Inhaled oxygen flow rate 2 L/min Maureen Gilmore MD Work Phone: [facility] 02-01-2025 06:00-0400 Body weight 79.8 kg Maureen Gilmore MD Work Phone: [facility] 01-27-2025 14:23-0400 Body height 167.64 cm Maureen Gilmore MD Work Phone: [facility] 10-20-2024 16:01-0400 Body height 170.18 cm [facility] 10-20-2024 16:01-0400 Body mass index (BMI) [Ratio] 29.7 kg/m2 [facility] 10-20-2024 16:01-0400 Body temperature 97 [degF] [facility] 10-20-2024 16:01-0400 Body weight 86.18 kg [facility] 10-20-2024 16:01-0400 Diastolic blood pressure 75 mm[Hg] [facility] 10-20-2024 16:01-0400 Heart rate 117 /min [facility] 10-20-2024 16:01-0400 Systolic blood pressure 103 mm[Hg] [facility] 07-27-2024 16:10-0500 Body temperature 97.3 [degF] [facility] 06-11-2024 10:00-0500 Body temperature 98.29 [degF] Jovana Holloway MD Work Phone: [facility] 06-11-2024 10:00-0500 Diastolic blood pressure 83 mm[Hg] Jovana Holloway MD Work Phone: [facility] 06-11-2024 10:00-0500 Heart rate 105 /min [facility] 06-11-2024 10:00-0500 Respiratory rate 16 /min Jovana Holloway MD Work Phone: [facility] 06-11-2024 10:00-0500 SaO2% (BldA) [Mass fraction] 92 % [facility] Holloway [facility] 06-11-2024 10:00-0500 Systolic blood pressure 137 mm[Hg] [facility]ov[facility] Holloway MD [facility] 06-08-2024 12:37-0500 Body height 170.2 cm Jovana Holloway MD Work Phone: [facility] 06-08-2024 12:37-0500 Body mass index (BMI) [Ratio] 30.67 kg/m2 Jovana Holloway MD Work Phone: [facility] 06-08-2024 12:37-0500 Body weight 88.81 kg Jovana Holloway MD Work Phone: [facility] 05-07-2024 09:22-0500 Body height 162.6 cm Yossi Hunter MD Work Phone: [facility] 05-07-2024 09:22-0500 Body mass index (BMI) [Ratio] 32.61 kg/m2 Yossi Hunter MD Work Phone: [facility] 05-07-2024 09:22-0500 Body weight 86.18 kg Yossi Hunter MD Work Phone: [facility] 05-07-2024 09:22-0500 Diastolic blood pressure 80 mm[Hg] Yossi Hunter MD Work Phone: [facility] 05-07-2024 09:22-0500 Heart rate 100 /min Yossi Hunter MD Work Phone: [facility] 05-07-2024 09:22-0500 Systolic blood pressure 126 mm[Hg] Yossi Hunter MD Work Phone: [facility] 04-29-2024 15:37-0500 Body height 170.18 cm Maureen Gilmore MD Work Phone: [facility] 04-29-2024 15:37-0500 Body mass index (BMI) [Ratio] 29.7 kg/m2 Maureen Gilmore MD Work Phone: [facility] 04-29-2024 15:37-0500 Body weight 86 kg Maureen Gilmore MD Work Phone: [facility] 04-29-2024 15:37-0500 Diastolic blood pressure 85 mm[Hg] Maureen Gilmore MD Work Phone: [facility] 04-29-2024 15:37-0500 Heart rate 120 /min Maureen Gilmore MD Work Phone: [facility] 04-29-2024 15:37-0500 Systolic blood pressure 119 mm[Hg] Maureen Gilmore MD Work Phone: [facility] 04-08-2024 15:03-0500 Body height 170.18 cm [facility] 04-08-2024 15:03-0500 Body mass index (BMI) [Ratio] 29.7 kg/m2 [facility] 04-08-2024 15:03-0500 Body weight 86.18 kg [facility] 04-08-2024 15:03-0500 Diastolic blood pressure 76 mm[Hg] [facility] 04-08-2024 15:03-0500 Heart rate 114 /min [facility] 04-08-2024 15:03-0500 Systolic blood pressure 108 mm[Hg] [facility] 04-07-2024 08:38-0500 Diastolic blood pressure 68 mm[Hg] Yossi Hunter MD Work Phone: [facility] 04-07-2024 08:38-0500 Heart rate 99 /min Yossi Hunter MD Work Phone: [facility] 04-07-2024 08:38-0500 Systolic blood pressure 110 mm[Hg] Yossi Hunter MD Work Phone: [facility] 03-30-2024 13:56-0500 Body height 167.64 cm [facility] 03-30-2024 13:56-0500 Body mass index (BMI) [Ratio] 28.8 kg/m2 [facility] 03-30-2024 13:56-0500 Body temperature 97.7 [degF] [facility] 03-30-2024 13:56-0500 Body weight 81 kg [facility] 03-30-2024 13:56-0500 Diastolic blood pressure 80 mm[Hg] [facility] 03-30-2024 13:56-0500 Heart rate 108 /min [facility] 03-30-2024 13:56-0500 Systolic blood pressure 112 mm[Hg] [facility] 02-26-2024 15:00-0400 Body height 167.64 cm [facility] 02-26-2024 15:00-0400 Body mass index (BMI) [Ratio] 29.8 kg/m2 [facility] 02-26-2024 15:00-0400 Body weight 83.91 kg [facility] 02-26-2024 15:00-0400 Diastolic blood pressure 88 mm[Hg] [facility] 02-26-2024 15:00-0400 Heart rate 122 /min [facility] 02-26-2024 15:00-0400 Respiratory rate 18 /min [facility] 02-26-2024 15:00-0400 SaO2% (BldA) [Mass fraction] 91 % [facility] 02-26-2024 15:00-0400 Systolic blood pressure 132 mm[Hg] [facility] 01-30-2024 11:32-0400 Body height 167.64 cm [facility] 01-30-2024 11:32-0400 Body mass index (BMI) [Ratio] 27.4 kg/m2 [facility] 01-30-2024 11:32-0400 Body weight 77.11 kg [facility] 01-30-2024 11:32-0400 Diastolic blood pressure 75 mm[Hg] [facility] 01-30-2024 11:32-0400 Heart rate 108 /min [facility] 01-30-2024 11:32-0400 Systolic blood pressure 115 mm[Hg] [facility] 01-20-2024 13:55-0400 Body height 167.64 cm [facility] 01-20-2024 13:55-0400 Body mass index (BMI) [Ratio] 27.2 kg/m2 [facility] 01-20-2024 13:55-0400 Body weight 76.65 kg [facility] 01-20-2024 13:55-0400 Diastolic blood pressure 62 mm[Hg] [facility] 01-20-2024 13:55-0400 Heart rate 130 /min [facility] 01-20-2024 13:55-0400 SaO2% (BldA) [Mass fraction] 75 % [facility] 01-20-2024 13:55-0400 Systolic blood pressure 76 mm[Hg] [facility] 01-05-2024 15:46-0400 Body temperature 98.01 [degF] Keli Rabago MD Work Phone: [employer] 01-05-2024 15:46-0400 Diastolic blood pressure 71 mm[Hg] Keli Rabago MD Work Phone: [employer] 01-05-2024 15:46-0400 Heart rate 89 /min Keli Rabago MD Work Phone: [employer] 01-05-2024 15:46-0400 Respiratory rate 18 /min Keli Rabago MD Work Phone: [employer] 01-05-2024 15:46-0400 SaO2% (BldA) [Mass fraction] 91 % Keli Rabago MD Work Phone: [employer] 01-05-2024 15:46-0400 Systolic blood pressure 106 mm[Hg] Keli Rabago MD Work Phone: [employer] 01-05-2024 06:00-0400 Body mass index (BMI) [Ratio] 31.97 kg/m2 Keli Rabago MD Work Phone: [employer] 01-05-2024 06:00-0400 Body weight 92.6 kg Keli Rabago MD Work Phone: [employer] 01-02-2024 14:46-0400 Body height 170.2 cm Keli Rabago MD Work Phone: [employer] 12-18-2023 13:49-0400 Body height 167.64 cm [facility] 12-18-2023 13:49-0400 Body mass index (BMI) [Ratio] 29.3 kg/m2 [facility] 12-18-2023 13:49-0400 Body weight 82.55 kg [facility] 12-18-2023 13:49-0400 Diastolic blood pressure 61 mm[Hg] [facility] 12-18-2023 13:49-0400 Heart rate 128 /min [facility] 12-18-2023 13:49-0400 Systolic blood pressure 85 mm[Hg] [facility] 12-11-2023 16:13-0400 Body height 167.64 cm [facility] 12-11-2023 16:13-0400 Body mass index (BMI) [Ratio] 32 kg/m2 [facility] 12-11-2023 16:13-0400 Body temperature 97 [degF] [facility] 12-11-2023 16:13-0400 Body weight 90 kg [facility] 12-11-2023 16:13-0400 Diastolic blood pressure 78 mm[Hg] [facility] 12-11-2023 16:13-0400 Heart rate 117 /min [facility] 12-11-2023 16:13-0400 Systolic blood pressure 123 mm[Hg] [facility] 10-14-2023 16:06-0400 Body temperature 97.9 [degF] [facility] 10-14-2023 16:06-0400 Heart rate 116 /min [facility] 10-14-2023 16:06-0400 SaO2% (BldA) [Mass fraction] 89 % [facility] 09-22-2023 14:17-0400 Body height 167.64 cm [facility] 09-22-2023 14:17-0400 Diastolic blood pressure 77 mm[Hg] [facility] 09-22-2023 14:17-0400 Heart rate 66 /min [facility] 09-22-2023 14:17-0400 Systolic blood pressure 109 mm[Hg] [facility] 09-12-2023 09:25-0400 Body height 167.64 cm [facility] 09-12-2023 09:25-0400 Body mass index (BMI) [Ratio] 31.3 kg/m2 [facility] 09-12-2023 09:25-0400 Body temperature 97.3 [degF] [facility] 09-12-2023 09:25-0400 Body weight 88 kg [facility] 09-12-2023 09:25-0400 Diastolic blood pressure 68 mm[Hg] [facility] 09-12-2023 09:25-0400 Heart rate 113 /min [facility] 09-12-2023 09:25-0400 Systolic blood pressure 103 mm[Hg] [facility] 08-26-2023 15:11-0400 Body height 167.64 cm [facility] 08-26-2023 15:11-0400 Body mass index (BMI) [Ratio] 30.4 kg/m2 [facility] 08-26-2023 15:11-0400 Body weight 85.5 kg [facility] 08-26-2023 15:11-0400 Diastolic blood pressure 65 mm[Hg] [facility] 08-26-2023 15:11-0400 Heart rate 121 /min [facility] 08-26-2023 15:11-0400 Systolic blood pressure 95 mm[Hg] [facility] 07-15-2023 12:00-0500 Diastolic blood pressure 56 mm[Hg] [address] 07-15-2023 12:00-0500 Heart rate 65 /min [address] 07-15-2023 12:00-0500 Respiratory rate 20 /min [address] 07-15-2023 12:00-0500 Systolic blood pressure 90 mm[Hg] [address] 07-15-2023 11:56-0500 SaO2% (BldA) [Mass fraction] 94 % [address] 07-01-2023 14:27-0500 Diastolic blood pressure 98 mm[Hg] Yossi Hunter MD Work Phone: [facility] 07-01-2023 14:27-0500 Heart rate 110 /min Yossi Hunter MD Work Phone: [facility] 07-01-2023 14:27-0500 Systolic blood pressure 124 mm[Hg] Yossi Hunter MD Work Phone: [facility] 06-13-2023 12:53-0500 Body height 162.[address] 06-13-2023 12:53-0500 Body mass index (BMI) [Ratio] 32.61 kg/m2 [address] 06-13-2023 12:53-0500 Body weight 86.[address] 06-13-2023 12:53-0500 Diastolic blood pressure 60 mm[Hg] [address] 06-13-2023 12:53-0500 Systolic blood pressure 110 mm[Hg] [address] 05-27-2023 14:04-0500 Body height 162.6 cm Yossi Hunter MD Work Phone: [facility] 05-27-2023 14:04-0500 Body mass index (BMI) [Ratio] 32.77 kg/m2 Yossi Hunter MD Work Phone: [facility] 05-27-2023 14:04-0500 Body weight 86.59 kg Yossi Hunter MD Work Phone: [facility] 05-27-2023 14:04-0500 Diastolic blood pressure 82 mm[Hg] Yossi Hunter MD Work Phone: [facility] 05-27-2023 14:04-0500 Heart rate 112 /min Yossi Hunter MD Work Phone: [facility] 05-27-2023 14:04-0500 Systolic blood pressure 122 mm[Hg] Yossi Hunter MD Work Phone: [facility] 03-13-2023 15:30-0400 Body height 167.64 cm Maureen Gilmore Other [facility] Other 03-13-2023 15:30-0400 Body mass index (BMI) [Ratio] 30.99 kg/m2 Maureen Gilmore Other [facility] Other 03-13-2023 15:30-0400 Body weight 87.09 kg Maureen Gilmore Other [facility] Other 03-13-2023 15:30-0400 Diastolic blood pressure 67 mm[Hg] Maureen Gilmore Other [facility] Other 03-13-2023 15:30-0400 Systolic blood pressure 106 mm[Hg] Maureen Gilmore Other [facility] Other 07-30-2022 15:45-0500 Body height 167.64 cm Maureen Gilmore Other [facility] Other 07-30-2022 15:45-0500 Body mass index (BMI) [Ratio] 33.25 kg/m2 Maureen Gilmore Other [facility] Other 07-30-2022 15:45-0500 Body weight 93.44 kg Maureen Gilmore Other [facility] Other 07-30-2022 15:45-0500 Diastolic blood pressure 92 mm[Hg] Maureen Gilmore Other [facility] Other 07-30-2022 15:45-0500 Systolic blood pressure 158 mm[Hg] Maureen Gilmore Other [facility] Other 11-23-2021 14:27-0400 Blood Pressure Location Ibrahima GONZALEZ [facility] [place] 11-23-2021 14:27-0400 Diastolic blood pressure 86 mm[Hg] Ibrahima NILL [facility] [place] 11-23-2021 14:27-0400 Heart rate 72 /min Ibrahima NILL [facility] [place] 11-23-2021 14:27-0400 Respiratory rate 16 /min Ibrahima NILL [facility] [place] 11-23-2021 14:27-0400 Systolic blood pressure 126 mm[Hg] Ibrahima NILL [facility] [place] Encounters Encounter Date Encounter Type Care Provider Facility Start: 02-01-2025 Barbi Nelson APRN - [facility] Work Phone: Start: 01-29-2025 End: 02-04-2025 External Result Encounter Martina Suarez MD Work Phone: [facility] External Department Unsolicited Start: 01-29-2025 End: 02-04-2025 External Result Encounter Martina Suarez MD Work Phone: [facility] External Department Unsolicited Start: 01-25-2025 Palmira Cope MD -[facility] Work Phone: Start: 01-25-2025 End: 02-01-2025 Evaluation and management of inpatient Mohamad Scooby Facility:[facility] Start: 01-25-2025 Jackson Mondragon MD -[facility] Work Phone: Start: 01-24-2025 Jackson Mondragon MD -[facility] Work Phone: Start: 01-23-2025 Jackson Mondragon MD -[facility] Work Phone: Start: 01-22-2025 End: 01-22-2025 ambulatory Isha Holley Facility:[facility] Start: 01-22-2025 Isha Holley MD -[facility] Work Phone: Start: 01-18-2025 End: 01-18-2025 ambulatory Maureen Gilmore MD Work Phone: [facility] Work Phone: Start: 01-18-2025 End: 01-18-2025 Patient encounter procedure Maureen Gilmore MD -[facility] Work Phone: Start: 01-18-2025 End: 01-18-2025 Maureen Gilmore MD -[facility] Work Phone: Start: 01-11-2025 End: 01-11-2025 [facility] Work Phone: Start: 01-11-2025 End: 01-11-2025 ambulatory Maureen Gilmore MD Work Phone: [facility] Work Phone: Start: 01-11-2025 End: 01-11-2025 Patient encounter procedure [facility]i [facility] Work Phone: Start: 12-23-2024 Non-patient / Non-visit Maureen badillo MD -[facility] [place] Work Phone: Start: 12-23-2024 Maureen Gilmore MD -[facility] [place] Work Phone: Start: 12-16-2024 ambulatory Neli Lindsey Facility:[facility] [place] Start: 12-13-2024 Non-patient / Non-visit Alyssa Locke [facility] Work Phone: Start: 12-13-2024 Alyssa Romo [facility] Work Phone: Start: 12-07-2024 Non-patient / Non-visit Maureen badillo MD -[facility] [place] Work Phone: Start: 12-07-2024 Maureen Gilmore MD -[facility] [place] Work Phone: Start: 12-05-2024 [facility] Start: 12-05-[facility] Start: 12-04-2024 [facility] Start: 12-04-[facility]: Start: 12-03-2024 [facility] Start: 12-03-[facility] Start: 12-02-2024 [facility] Start: 12-02-[facility]24 [facility]: Start: 12-01-2024 [facility] Start: 12-01-2024 [facility]: Start: 11-30-2024 [facility]: Start: 11-30-2024 Isha Holley MD -[facility] Work Phone: Start: 10-20-2024 End: 10-20-2024 ambulatory [facility] Work Phone: Start: 10-20-2024 End: 10-20-2024 Patient encounter procedure [facility] [facility] Work Phone: Start: 07-27-2024 End: 07-27-2024 ambulatory [facility] Work Phone: Start: 07-27-2024 End: 07-27-2024 Patient encounter procedure [facility] Work Phone: Start: 06-30-2024 End: 06-30-2024 ambulatory Maureen Gilmore MD Work Phone: [facility] Work Phone: Start: 06-30-2024 End: 06-30-2024 Patient encounter procedure Maureen Gilmore MD Work Phone: [facility] Work Phone: Start: 06-11-2024 Non-patient / Non-visit Maureen Gilmore MD Work Phone: [facility] Work Phone: Start: 06-08-2024 End: 06-11-2024 Evaluation and management of inpatient Jovana Holloway MD Work Phone: [facility] 7[facility] Start: 05-28-2024 End: 05-28-2024 ambulatory Maureen Gilmore MD Work Phone: [facility] Work Phone: Start: 05-28-2024 End: 05-28-2024 Patient encounter procedure Maureen Gilmore MD Work Phone: [facility] Work Phone: Start: 05-07-2024 End: 05-07-2024 Office outpatient visit 25 minutes Yossi Hunter MD Work Phone: [facility] Comment on above: Heart valve disease; Dilation of aorta (CMS-HCC); Essential hypertension; BMI 32.0-32.9,adult; Smoker Start: 05-07-2024 End: 05-07-2024 ambulatory YOSSI HUNTER [facility] Start: 05-06-2024 Non-patient / Non-visit Maureen Gilmore MD Work Phone: [facility] Work Phone: Start: 04-29-2024 End: 04-29-2024 ambulatory Maureen Gilmore Facility:[facility] Start: 04-29-2024 End: 04-29-2024 Departed Referred Maureen Gilmore MD Work Phone: [facility] [place] Work Phone: Start: 04-29-2024 Encounter for other preprocedural examination Maureen Gilmore [facility] Start: 04-29-2024 End: 04-29-2024 Patient encounter procedure Maureen Gilmore MD Work Phone: [facility] Work Phone: Start: 04-08-2024 Patient encounter status Laura Gilmore MD Work Phone: [facility] Start: 04-08-2024 Preprocedural examination done Maureen Gilmore MD Work Phone: [facility] Start: 04-08-2024 End: 04-08-2024 ambulatory [facility] Work Phone: Start: 04-08-2024 End: 04-08-2024 Encounter for other preprocedural examination Maureen Gilmore MD Work Phone: [facility] Start: 04-08-2024 End: 04-08-2024 Patient encounter procedure [facility] Work Phone: Start: 04-07-2024 End: 04-07-2024 Office outpatient visit 25 minutes Yossi Hunter MD Work Phone: [facility] Comment on above: Pre-operative cleara nce; Pre-op examination; Heart valve disease; Dilation of aorta (CMS-HCC); Essential hypertension; Smoker Start: 04-07-2024 End: 04-07-2024 Preoperative state Yossi Hunter MD Work Phone: [facility] Start: 04-07-2024 End: 04-07-2024 Preprocedural examination done Yossi Hunter MD Work Phone: [facility] Start: 04-07-2024 End: 04-07-2024 ambulatory YOSSI Golden [facility] Ambulatory Start: 04-07-2024 End: 04-07-2024 [facility] Start: 04-06-2024 Non-patient / Non-visit Maureen Gilmore MD Work Phone: [facility] Work Phone: Start: 04-01-2024 Non-patient / Non-visit [facility] Work Phone: Start: 03-30-2024 End: 03-30-2024 ambulatory [facility] Work Phone: Start: 03-30-2024 End: 03-30-2024 Patient encounter procedure [facility] Work Phone: Start: 02-26-2024 End: 02-26-2024 ambulatory [facility] Work Phone: Start: 02-26-2024 End: 02-26-2024 Patient encounter procedure [facility] Work Phone: Start: 02-26-2024 Non-patient / Non-visit [facility] [place] Work Phone: Start: 01-30-2024 End: 01-30-2024 ambulatory [facility] Work Phone: Start: 01-30-2024 End: 01-30-2024 Patient encounter procedure [facility] Work Phone: Start: 01-20-2024 Non-patient / Non-visit [facility] ER Work Phone: Start: 01-20-2024 End: 01-20-2024 ambulatory [facility] Work Phone: Start: 01-20-2024 End: 01-20-2024 Patient encounter procedure [facility] Work Phone: Start: 01-12-2024 Non-patient / Non-visit [facility] Work Phone: Start: 01-12-2024 End: 01-12-2024 ambulatory Bhupinder Shelton MD Facility:[facility] Start: 01-06-2024 Non-patient / Non-visit [facility] Work Phone: Start: 01-06-2024 End: 01-11-2024 Evaluation and management of inpatient TARUN ARNOLD [facility] Start: 01-06-2024 Non-patient / Non-visit [facility] Work Phone: Start: 12-30-2023 End: 01-05-2024 Evaluation and management of inpatient [facility] Comment on above: Syncope, unspecified syncope type (Primary Dx) Start: 12-30-2023 Non-patient / Non-visit [facility] Work Phone: Start: 12-29-2023 Non-patient / Non-visit [facility] Work Phone: Start: 12-28-2023 End: 12-30-2023 Non-patient / Non-visit [facility] Work Phone: Start: 12-28-2023 Non-patient / Non-visit [facility] Work Phone: Start: 12-18-2023 End: 12-18-2023 ambulatory [facility] Work Phone: Start: 12-18-2023 End: 12-18-2023 Patient encounter procedure [facility] Work Phone: Start: 12-11-2023 End: 12-11-2023 ambulatory [facility] Work Phone: Start: 12-11-2023 End: 12-11-2023 Patient encounter procedure [facility] Work Phone: Start: 11-11-2023 End: 11-11-2023 ambulatory DARLENE GONZALEZ Not Available Start: 11-10-2023 Non-patient / Non-visit [facility] Work Phone: Start: 11-10-2023 Non-patient / Non-visit [facility] Work Phone: Start: 10-22-2023 End: 10-22-2023 ambulatory DOROTHY B APLING Not Available Start: 10-22-2023 End: 10-22-2023 ambulatory DOROTHY B APLING Not Available Start: 10-14-2023 End: 10-14-2023 ambulatory [facility] Work Phone: Start: 10-14-2023 End: 10-14-2023 Patient encounter procedure [facility] Work Phone: Start: 09-22-2023 End: 09-22-2023 ambulatory [facility] Work Phone: Start: 09-22-2023 End: 09-22-2023 Patient encounter procedure [facility] Work Phone: Start: 09-12-2023 End: 09-12-2023 ambulatory [facility] Work Phone: Start: 09-12-2023 End: 09-12-2023 Patient encounter procedure [facility] Work Phone: Start: 09-03-2023 Non-patient / Non-visit [facility] Work Phone: Start: 08-26-2023 End: 08-26-2023 ambulatory [facility] Work Phone: Start: 08-26-2023 End: 08-26-2023 Patient encounter procedure [facility] Work Phone: Start: 07-23-2023 Non-patient / Non-visit [facility] Work Phone: Start: 07-23-2023 Non-patient / Non-visit [facility] Work Phone: Start: 07-15-2023 End: 07-15-2023 Subsequent hospital visit by physician Jyotsna [id number] [facility] Comment on above: Essential hypertensi on; Shortness of breath; Angina pectoris, unstable (CMS/HCC) Start: 07-15-2023 End: 07-15-2023 ambulatory [facility] Start: 07-07-2023 End: 07-07-2023 ambulatory Maureen Gilmore Other [facility] Other Start: 07-07-2023 Telephone encounter Maureen Gilmore [facility] Start: 07-01-2023 End: 07-01-2023 Office outpatient visit 25 minutes Yossi Hunter MD Work Phone: [facility] Comment on above: Angina pectoris, uns table (CMS/HCC) (Primary Dx); Dilation of aorta (CMS/HCC); Essential hypertension; Heart valve disease; Shortness of breath; Smoker; BMI 32.0-32.9,adult Start: 07-01-2023 End: 07-01-2023 ambulatory [facility] Ambulatory Start: 06-19-2023 End: 06-19-2023 ambulatory Maureen Gilmore Other [facility] Other Start: 06-19-2023 Office outpatient vi sit 15 minutes Maureen Gilmore [facility] Start: 06-13-2023 End: 06-13-2023 Subsequent hospital visit by physician Jyotsna Alcala305 Echo/Vasc 3 [facility] Comment on above: Shortness of breath; Heart valve disease; Dizziness; Dilation of aorta (CMS/HCC) Start: 06-13-2023 End: 06-13-2023 ambulatory [facility] Start: 06-02-2023 End: 06-02-2023 ambulatory Maureen Gilmore Other [facility] Other Start: 06-02-2023 Telephone encounter Maureen Gilmore [facility] Start: 05-27-2023 End: 05-27-2023 Office outpatient new 45 minutes Yossi Hunter MD Work Phone: [facility] Comment on above: Shortness of breath; Essential hypertension; BMI 32.0-32.9,adult; Smoker; Heart valve disease; Dizziness; Dilation of aorta (CMS/HCC) Start: 05-27-2023 End: 05-27-2023 ambulatory [facility] Amb[facility] Start: 05-15-2023 End: 05-15-2023 ambulatory Maureen Gilmore Other [facility] Other Start: 05-15-2023 Telephone encounter Maureen Gilmore [facility] Start: 05-01-2023 End: 05-01-2023 ambulatory Maureen Gilmore Other [facility] Other Start: 05-01-2023 Telephone encounter Maureen Gilmore [facility] Start: 04-21-2023 End: 04-21-2023 ambulatory Maureen Gilmore Other [facility] Other Start: 04-21-2023 Telephone encounter Maureen Gilmore [facility] Start: 04-03-2023 (Televisit) Televisit Maureen Manzo [facility] Start: 04-03-2023 End: 04-03-2023 ambulatory Maureen Glimore Other [facility] Other Start: 04-03-2023 Telephone encounter Maureen Gilmore [facility] Start: 04-01-2023 End: 04-01-2023 ambulatory Maureen Gilmore Other [facility] Other Start: 04-01-2023 Telephone encounter Maureen Gilmore [facility] Start: 03-13-2023 End: 03-13-2023 ambulatory Maureen Gilmore Other [facility] Other Start: 03-13-2023 Office outpatient vi sit 25 minutes Maureen Gilmore [facility] Start: 03-13-2023 Telephone encounter Maureen Gilmore [facility] Start: 02-13-2023 End: 02-13-2023 ambulatory Maureen Gilmore Other [facility] Other Start: 02-13-2023 Telephone encounter Maureen Gilmore [facility] Start: 01-30-2023 End: 01-30-2023 ambulatory Maureen Gilmore Other [facility] Other Start: 01-30-2023 Telephone encounter Maureen Gilmore [facility] Start: 01-16-2023 End: 01-16-2023 ambulatory Maureen Gilmore Other [facility] Other Start: 01-16-2023 Telephone encounter Maureen Gilmore [facility] Start: 12-31-2022 End: 12-31-2022 ambulatory Maureen Gilmore Other [facility] Other Start: 12-31-2022 Telephone encounter Maureen Gilmore [facility] Start: 12-06-2022 End: 12-06-2022 ambulatory Maureen Gilmore Other [facility] Other Start: 12-06-2022 Telephone encounter Maureen Gilmore [facility] Start: 11-18-2022 End: 11-18-2022 ambulatory Maureen Gilmore Other [facility] Other Start: 11-18-2022 Telephone encounter Maureen Gilmore [facility] Start: 11-06-2022 End: 11-06-2022 ambulatory Maureen Gilmore Other [facility] Other Start: 11-06-2022 Telephone encounter Maureen Gilmore [facility] Start: 09-19-2022 End: 09-19-2022 ambulatory Maureen Gilmore Other [facility] Other Start: 09-19-2022 Telephone encounter Maureen Gilmore [facility] Start: 09-10-2022 End: 09-10-2022 ambulatory Maureen Gilmore Other [facility] Other Start: 09-10-2022 Telephone encounter Maureen Gilmore [facility] Start: 08-22-2022 End: 08-22-2022 ambulatory Maureen Mando Other [facility] Other Start: 08-22-2022 Telephone encounter Maureen Gilmore [facility] Start: 08-19-2022 End: 08-19-2022 ambulatory Otoniel Kelly Other [facility] Other Start: 08-19-2022 Telephone encounter Otoniel Kelly [facility] Start: 07-30-2022 End: 07-30-2022 ambulatory Maureen Gilmore Other [facility] Other Start: 07-30-2022 Office outpatient vi sit 25 minutes Maureen Gilmore [facility] Start: 07-25-2022 End: 07-25-2022 ambulatory Maureen Gilmore Other [facility] Other Start: 07-25-2022 Telephone encounter Maureen Gilmore [facility] Start: 07-24-2022 End: 07-24-2022 ambulatory Maureen Gilmore Other [facility] Other Start: 07-24-2022 Telephone encounter Maureen Gilmore [facility] Start: 03-29-2022 End: 03-30-[address] MAUREEN GILMORE Facility:[facility] Start: 03-29-2022 Adult health examination Laura Gilmore Other [facility] [employer] Other Start: 03-25-2022 End: 03-26-[address] MAUREEN GILMORE Facility:[facility] Start: 12-28-2021 End: 01-15-2022 ambulatory MAUREEN GILMORE Facility:[facility] Start: 12-05-2021 Encounter for genera l adult medical examination without abnormal findings DR MAUREEN GILMORE [facility] Start: 12-04-2021 End: 12-05-[address] IBRAHIMA GOZNALEZ Facility:[facility] Start: 12-04-2021 End: 12-05-2021 Encounter for general adult medical examination without abnormal findings DR MAUREEN GILMORE Facility:[facility] Start: 11-23-2021 End: 11-23-2021 Patient encounter procedure Ibrahima GONZALEZ [facility] [place] Start: 11-03-2021 End: 11-03-[address] CHONG GUTIERREZ Facility:[facility] Start: 02-09-2018 End: 02-09-2018 Patient encounter [facility] Start: 02-06-2018 End: 02-11-2018 Patient encounter [facility] Procedures Date Procedure Procedure Detail Performing Clinician Start: 01-29-2025 PROTEIN ELECTRO, RANDOM URINE Martina morales MD Work Phone: Start: 01-29-2025 TOTAL PROTEIN, URINE Martina Suarez MD Work Phone: Start: 01-29-2025 PROTEIN C ANTIGEN Martina Suarez MD Work Phone: Start: 01-29-2025 ANTITHROMBIN ACTIVITY Martina Suarez MD Work Phone: Start: 01-29-2025 DRVVT WITH REFLEX Martina Suarez MD Work Phone: Start: 01-29-2025 End: 01-29-2025 Fibrinogen activity Martina Suarez MD Work Phone: Start: 01-29-2025 PROT ELECTROPHOR W/REFLEX ISA Martina morales MD Work Phone: Start: 01-29-2025 PROTEIN C FUNCTIONAL Martina Suarez MD Work Phone: Start: 01-29-2025 PROTEIN S ANTIGEN Martina Suarez MD Work Phone: Start: 01-29-2025 PROTEIN S FUNCTIONAL Martina Suarez MD Work Phone: Start: 01-22-2025 Maureen Gilmore MD Work Phone: Start: 06-11-2024 Anion gap [Moles/Vol] David Diglio [...] Work Phone: Start: 04-29-2024 Urine culture Maureen Gilmore MD Work Phone: Start: 04-07-2024 Ecg routine [...] Work Phone: Start: 01-02-2024 Blood count hemoglobin Armondandrew Singh BURKETT Work Phone: Start: 01-02-2024 Glucose blood reagent [...] Blood count complete auto&auto difrntl wbc Sandy Rodgers MD Work Phone: Start: 01-01-2024 End: 01-01-2024 Calcium ionized Ka Hans Brewer DO Work Phone: Start: 01-01-2024 LACTATE, SEPSIS Rachel Brewer DO Work Phone: Start: 01-01-2024 Vascular embolization or occlusion hemorrhage Lola Quinones [employer] - 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 Work Phone: Start: 01-01-2024 Ecg routine ecg [...] 01-01-2024 End: 01-01-2024 ESOPHAGOGASTRODUODENOSCOPY CONTROL HEMORRHAGE Sandy Rodgers MD Work Phone: Start: 01-01-2024 End: 01-01-2024 ESOPHAGOGASTRODUODENOSCOPY SCLEROTHERAPY Sandy Rodgers MD Work Phone: Start: 01-01-2024 Blood count hemoglobin Sandy Rodgers MD Work Phone: Start: 01-01-2024 Assay of magnesium Suzanne Celeste MD Work Phone: Start: 01-01-2024 BASIC METABOLIC PANEL W/ REFLEX TO MG FOR LOW K Sandy Rodgers MD Work Phone: Start: 01-01-2024 Hepatic function panel Suzanne Bajwa Work Phone: Start: 01-01-2024 Blood count hemoglobin Suzanne Bajwa Work Phone: Start: 01-01-2024 PREVIOUS SPECIMEN Suzanne Celeste MD Work Phone: Start: 12-31-2023 Blood count hemoglobin Sandy Rodgers MD Work Phone: Start: 12-31-2023 Ecg routine ecg w/least 12 lds trcg only w/o i&r Suzanne Celeste MD Work Phone: Start: 12-31-2023 Blood count hemoglobin Sandy Rodgers MD Work Phone: Start: 12-31-2023 Echo tthrc r-t 2d w/wom-mode compl spec&colr d Michael Arellano MD Work Phone: Start: 12-31-2023 Toxin/antitoxin assay tissue culture Michael Arellano MD Work Phone: Start: 12-31-2023 End: 12-31-2023 Prothrombin time Christina Watkins se [employer] - 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 Work Phone: Start: 12-30-2023 End: 12-31-2023 Basic [...] Phone: Start: 12-30-2023 Blood count hemoglobin Sandy Rodgers MD Work Phone: Start: 12-28-2023 Blood Culture 1 Start: 12-28-2023 Blood Culture 2 Start: 07-15-2023 CT ANGIO CORONARY ART WITH HEARTFLOW IF SCORE >30% YOSSI ABIOSE Start: 07-15-2023 POCT CREATININE AND GFR YOSSI ABIOSE Start: 07-15-2023 Cta hrt cornry art/bypass grfts contrst 3d post Yossi K Abiose MD Work Phone: Start: 07-15-2023 Creatinine blood Interface Unspecifiedprovider Work Phone: Start: 06-13-2023 TRANSTHORACIC ECHO (TTE) COMPLETE YOSSI HUNTER Start: 06-13-2023 Echo tthrc r-t 2d w/wom-mode compl spec&colr d Yossi Hunter MD Work Phone: Start: 02-03-2019 Mammography Martina Suarez MD Work Phone: Start: 02-09-2018 INCENTIVE SPIROMETRY [...] RONAL REJI Start: 02-09-2018 NOTIFY PHYSICIAN (SPECIFY) RNOAL REJI Start: 02-09-2018 NURSING COMMUNICATION RONAL REJI [...] PANDYAL Start: 02-09-2016 Substance abuse counseling Maureen Gilmore Other Start: 09-20-2014 General examination of patient Maureen Poole paolo Other Start: 09-20-2014 Screening mammography Maureen Gilmore Other Appendectomy Ibrahima PANDYAL Circumferential body lift Mi sybil NILL Excision of lumbar intervertebral disc Ibrahima PANDYAL Comment on above: L4-L5 Exploratory laparotomy Marty el NILL 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 Keli Rabago MD Work Phone: History of gastroint estinal tract bypass Maureen Gilmore MD Work Phone: History of gastroint estinal tract bypass Palmira Cope MD Linsey-en-Y gastrojejunostomy Ibrahima NILL Screening for malign ant neoplasm of breast Maureen Gilmore Other Total abdominal hyst erectomy with bilateral salpingo-oophorectomy Ibrahima PANDYAL Plan of Treatment Date Care Activity Detail Author Start: 10-21-2027 Screening for malignant neoplasm of colon [facility] Start: 02-01-2025 [facility] Start: 01-31-2025 [facility] Start: 01-29-2025 [facility] Start: 01-27-2025 Referral to counseling services director [facility] Start: 01-26-2025 Consultation [facility] Start: 01-26-2025 Referral to vascular surgeon [facility] Start: 01-25-2025 Referral to pet ambassador [facility] Start: 01-25-2025 [facility] Start: 01-25-2025 Hospital admission [facility] Start: 01-25-2025 Referral to airplane electrician [facility] Start: 01-24-2025 Influenza vaccination Influenza Vaccine (#1) [facility] Start: 01-22-2025 Urine culture [facility] Start: 10-06-2024 End: 10-06-2024 Patient encounter procedure 10/06/2024 10:00 AM EDT Office Visit [facility] [address] [phone] Yossi Hunter MD [address] [facility] Medical Office Bldg, [facility] [address] [place], [place] [id number] [facility] Start: 04-29-2024 EKG 12 channel panel [facility] Start: 02-03-2024 Patient referral [facility] Work Phone: Start: 01-25-2024 COVID-19 Vaccine ( season) COVID-19 Vaccine ( season) [facility] [employer] [facility] Start: 01-25-2024 COVID-19 Vaccine ( season) COVID-19 Vaccine ( season) [facility] Start: 01-25-2024 Influenza vaccination Influenza Vaccine (#1) [facility] Start: 01-20-2024 Patient referral [facility] Work Phone: Start: 12-30-2023 Annual Wellness Visit (Medicare) Annual Wellness Visit (Medicare) [employer] Start: 12-25-2023 Influenza vaccination Flu vaccine (#1) [facility] [employer] [facility] Start: 12-18-2023 Patient referral [facility] Work Phone: Start: 09-30-2023 End: 09-30-2023 Patient encounter procedure 09/30/2023 10:00 AM EDT Office Visit [facility] [address] [address] [place] [id number] Yossi Hunter MD [address] [facility] Medical Office [facility], [address] [id number] [facility] Start: 07-01-2023 End: 07-01-2024 CTA Heart and Coronary arteries WO and W contrast IV CT angio coronary art with heartflow if score >30% Imaging Routine Essential hypertension Shortness of breath Angina pectoris, unstable (CMS/HCC) Expected: 07/01/2023 (Approximate), Expires: 07/01/2024 [facility] Service Area Work Phone: Comment on above: Expected: 07/01/2023 (Approximate), Expi res: 07/01/2024 Start: 07-01-2023 End: 07-01-2023 Patient encounter procedure 07/01/2023 2:00 PM EST Office Visit [facility] [address] [place] [id number] Yossi Hunter MD [address] [facility] Medical Office [facility], [address] [id number] [facility] Start: 05-27-2023 End: 05-27-2024 CT Chest WO contrast CT chest wo IV contrast Imaging Routine Heart valve disease Dilation of aorta (CMS/HCC) Expected: 05/27/2023 (Approximate), Expires: 05/27/2024 [facility] Work Phone: Comment on above: Expected: 05/27/2023 (Approximate), Expi res: 05/27/2024 Start: 05-27-2023 End: 05-27-2025 Heart Transthoracic Transthoracic Echo (TTE) Complete Echocardiography Routine Shortness of breath Heart valve disease Dizziness Dilation of aorta (CMS/HCC) Expected: 05/27/2023 (Approximate), Expires: 05/27/2025 [facility] Service Area Work Phone: Comment on above: Expected: 05/27/2023 (Approximate), Expi res: 05/27/2025 Start: 01-24-2023 COVID-19 Vaccine () COVID-19 Vaccine () [facility] Start: 01-24-2023 Influenza vaccination Influenza Vaccine (#1) [facility] Start: 07-08-2021 COVID-19 Vaccine (4 - Pfizer series) COVID-19 Vaccine (4 - Pfizer series) [facility] Start: 02-03-2021 Screening for malignant neoplasm of breast Breast cancer screen [facility] Start: 02-04-2020 Screening for malignant neoplasm of breast Mammogram [facility] Start: 2018 Shingles vaccine (1 of 2) Shingles vaccine (1 of 2) [facility] Start: 2018 Zoster Vaccines (1 of 2) Zoster Vaccines (1 of 2) [facility] Start: 2013 Screening for malignant neoplasm of colon [facility] Start: 2008 Lipid panel Lipids [facility] Start: 2008 Screening for malignant neoplasm of breast Mammogram [facility] Start: 10-06-2003 Diabetes screen Diabetes screen [facility] Start: 1998 Screening for malignant neoplasm of cervix [facility] Start: 05-17-1997 DTaP/Tdap/Td vaccine (1 - Tdap) DTaP/Tdap/Td vaccine (1 - Tdap) [facility] Start: 05-17-1997 DTaP/Tdap/Td Vaccines (1 - Tdap) DTaP/Tdap/Td Vaccines (1 - Tdap) [facility] Start: 1989 Screening for malignant neoplasm of cervix [facility] Start: 10-06-1987 Hepatitis B vaccine (1 of 3 - 19+ 3-dose series) Hepatitis B vaccine (1 of 3 - 19+ 3-dose series) [facility] Start: 1986 Diabetes mellitus screening Diabetes Screening [facility] Start: 1986 Hepatitis C screening [facility] Start: 10-06-1983 HIV screening HIV screen [facility] Start: 1980 Depression Screen Depression Screen [employer] Start: 1974 Pneumococcal 0-64 years Vaccine (1 of 2 - PCV) Pneumococcal 0-64 years Vaccine (1 of 2 - PCV) [employer] Start: 1974 Pneumococcal Vaccine: Pediatrics (0 to 5 Years) and At-Risk Patients (6 to 64 Years) (1 - PCV) Pneumococcal Vaccine: Pediatrics (0 to 5 Years) and At-Risk Patients (6 to 64 Years) (1 - PCV) [facility] Start: 1974 Pneumococcal Vaccine: Pediatrics (0 to 5 Years) and At-Risk Patients (6 to 64 Years) (1 of 2 - PCV) Pneumococcal Vaccine: Pediatrics (0 to 5 Years) and At-Risk Patients (6 to 64 Years) (1 of 2 - PCV) [facility] Start: 1968 HIV screening HIV Screening [facility] Start: 1968 Lipid panel Lipid Panel [facility] Start: 1968 Medicare Annual Wellness Visit Medicare Annual Wellness Visit (AWV) [facility] Start: 1968 Screening for malignant neoplasm of colon [facility] Start: 1968 Screening for osteoporosis Bone Density Scan [facility] Start: 1968 Yearly Adult Physical Yearly Adult Physical [facility] Albumin [Mass/volume ] in Serum or Plasma [facility] Albumin/Globulin ratio [facility] ANTICARDIOLIPIN IGG/M/A, QN ANTI CARDIOLIPIN IGG/M/A, QN Lab Routine 01/29/2025 4:29 AM EDT [facility] [employer] Work Phone: End: 01-02-2024 aPTT in Blood by Coagulation assay APTT Lab Routine Post Transfusion Post Transfusion Post Transfustion for 1 Occurrences starting 01/01/2024 until 01/02/2024 [employer] Comment on above: Post Transfusion Post Transfusion Post T ransfustion for 1 Occurrences starting 01/01/2024 until 01/02/2024 End: 06-15-2024 Basic metabolic 2000 panel - Serum or Plasma Basic Metabolic Panel Lab Routine Daily for 1 Weeks starting 06/09/2024 until 06/15/2024, 3 completed [employer] [employer] Comment on above: Daily for 1 Weeks starting 06/09/2024 un til 06/15/2024, 3 completed End: 01-06-2024 Basic metabolic 2000 panel - Serum or Plasma Basic Metabolic Panel Lab Routine Daily for 3 Days starting 01/04/2024 until 01/06/2024, 2 completed [employer] Comment on above: Daily for 3 Days starting 01/04/2024 unt il 01/06/2024, 2 completed End: 01-06-2024 CBC W Auto Differential panel - Blood CBC with Auto Differential Lab Routine Daily for 3 Days starting 01/04/2024 until 01/06/2024, 2 completed [employer] Comment on above: Daily for 3 Days starting 01/04/2024 unt il 01/06/2024, 2 completed Comprehensive metabo lic 2000 panel - Serum or Plasma [facility] Continuous pulse oximetry Pulse oximetry, continuous Respiratory Care Routine Every 4hr until discontinued starting 01/02/2024 [employer] Comment on above: Every 4hr until discontinued starting End: 01-02-2024 EKG 12 Lead EKG 12 Lead ECG Routine One Time for 1 Occurrences starting 01/02/2024 until 01/02/2024 [employer] Work Phone: Comment on above: One Time for 1 Occurrences starting 01/2024 until 01/02/2024 Electrophoresis: [id number] [facility] Electrophoresis: [id number] [facility] Electrophoresis: beta-globulin [facility] Electrophoresis: lily ma globulin [facility] F2 gene mutations fo und [Identifier] in Blood or Tissue by Molecular genetics method [facility] F5 gene mutations fo und [Identifier] in Blood or Tissue by Molecular genetics method [facility] Globulin [Mass/volum e] in Serum [facility] End: 06-15-2024 Hemoglobin and Hematocrit Hemoglobin and Hematocrit Lab Routine Daily for 1 Weeks starting 06/09/2024 until 06/15/2024, 3 completed [employer] Comment on above: Daily for 1 Weeks starting 06/09/2024 un til 06/15/2024, 3 completed End: 01-15-2024 Hemoglobin and Hematocrit Hemoglobin and Hematocrit Lab Routine Post Transfusion Post Transfusion Post Transfustion until discontinued starting 01/01/2024 [employer] Comment on above: Post Transfusion Post Transfusion Post T ransfustion until discontinued starting 01/01/2024 End: 01-07-2024 Hemoglobin and Hematocrit Hemoglobin and Hematocrit Lab Routine Every 12 hours (Lab) for 3 Days starting 01/04/2024 until 01/07/2024, 2 completed [employer] Comment on above: Every 12 hours (Lab) for 3 Days starting 01/04/2024 until 01/07/2024, 2 completed MR Brain WO contrast [facility] Oxygen therapy [Mini mum Data Set] Initiate Oxygen Therapy Protocol Respiratory Care Routine As Needed until discontinued starting 06/08/2024 [employer] Comment on above: As Needed until discontinued starting Oxygen therapy [Mini mum Data Set] Initiate Oxygen Therapy Protocol Respiratory Care Routine As Needed until discontinued starting 12/30/2023 [employer] Work Phone: Comment on above: As Needed until discontinued starting Patient Education [facility] Work Phone: Patient referral [facility] Work Phone: End: 01-01-2024 PREPARE RBC (CROSSMATCH), 1 Units PREPARE RBC (CROSSMATCH), 1 Units Blood Bank Routine Once for 1 Occurrences starting 01/01/2024 until 01/01/2024 [employer] Comment on above: Once for 1 Occurrences starting 01/01/20 until 01/01/2024 Protein [Mass/volume ] in Serum or Plasma [facility] Protein C Ag actual/ normal in Platelet poor plasma by Immunoassay [facility] End: 01-02-2024 Protime-INR Protime-INR Lab Routine Post Transfusion Post Transfusion Post Transfustion for 1 Occurrences starting 01/01/2024 until 01/02/2024 [employer] Work Phone: Comment on above: Post Transfusion Post Transfusion Post T ransfustion for 1 Occurrences starting 01/01/2024 until 01/02/2024 Spirometry panel Incentive papi metry Respiratory Care Routine Every 2hr while awake until discontinued starting 06/08/2024 [facility] Comment on above: Every 2hr while awake until discontinued starting 06/08/2024 Urine culture [facility] [place] Immunizations Immunization Date Immunization Notes Care Provider Smitha patino 05-13-2021 influenza virus vaccine, unspecified formulation Yossi Hunter MD Work Phone: [facility] Work Phone: 08-22-2020 COVID-19 Vaccine Pfi zer - Documentation Purposes Only Maureen Gilmore Other [facility] 08-02-2020 COVID-19 Vaccine Pfi zer - Documentation Purposes Only Maureen Gilmore Other [facility] 04-28-2020 influenza virus vaccine, split virus (incl. purified surface antigen) Maureen Gilmore Other [facility] Other 04-28-2020 influenza virus vaccine, unspecified formulation [facility] 03-06-2016 influenza virus vaccine, split virus (incl. purified surface antigen) Maureen Gilmore Other [facility] Other 03-06-2016 influenza virus vaccine, unspecified formulation [facility] Payers Date Payer Category Payer Unknown [id number] 2024 Private Health Insurance [id number] 2024 Self-pay [id number] 2023 Managed Care (Private) [facility] [id number]. [id number] 2022 Medicare 2022 Medicare [id number] 2022 Private Health Insurance [id number]. [id number] 2022 Private Health Insurance [id number] 2014 Unknown [id number] 1968 Unknown [id number] 2.16.840.1.844887.3.579.2. 647 1968 Unknown [id number] 2.16.840.1.958834.3.579.2. 59 1968 Unknown [id number] 2.16.840.1.969440.3.579.2. 59 1968 Unknown [id number] 2.16.840.1.128568.3.579.2. 59 1968 Unknown [id number] 2.16.840.1.135816.3.579.2. 59 1968 Unknown [id number] 2.16.840.1.061412.3.579.2. 59 1968 Unknown [id number] 2.16.840.1.892419.3.579.2. 125 1968 Unknown [id number] 2.16.840.1.960695.3.579.2. 1258 1968 Unknown [id number] 2.16.840.1.976383.3.579.2. 1258 1968 Unknown [id number] 2.16.840.1.246513.3.579.2. 125 1968 Unknown [id number] 2.16.840.1.652434.3.579.2. 1259 1968 Unknown [id number] 2.16.840.1.668506.3.579.2. 9 1968 Unknown [id number] 2.16.840.1.559205.3.579.2. 175 1968 Unknown [id number] 2.16.840.1.355917.3.579.2. 175 1968 Unknown [id number] 2.16.840.1.399468.3.579.2. 196 1968 Unknown [id number] 2.16.840.1.691563.3.579.2. 1245 1968 Unknown [id number] 2.16.840.1.218341.3.579.2. 1245 1968 Unknown [id number] 2.16.840.1.050513.3.579.2. 1243 1968 Unknown [id number] 2.16.840.1.588542.3.579.2. 1243 1968 Unknown [id number] 2.16.840.1.590432.3.579.2. 1243 1968 Unknown [id number] 2.16.840.1.833315.3.579.2. 1243 1968 Unknown [id number] 2.16.840.1.752858.3.579.2. 93 1968 Unknown [id number] 2.16.840.1.302331.3.579.2. 727 1959 Private Health Insurance [id number] Private Health Insurance [id number] Unknown [id number] 2.16.840.1.459316.3.579.2. 531 Unknown [id number] 2.16.840.1.320341.3.579.2. 531 Unknown [id number] 2.16.840.1.529036.3.579.2. 531 Unknown [id number] 2.16.840.1.490399.3.579.2. 531 Social History Date Type Detail Facility Start: 11-23-2021 Tobacco smoking status Heavy t obacco smoker (finding) [facility] Tobacco smoking status Never [facility] Start: 05-27-2023 End: 10-22-2023 Sex Assigned At Female [facility] Start: 05-27-2023 End: 01-28-2025 Tobacco smoking status NHIS Occasional tobacco smoker [facility] Work Phone: Start: 06-26-2012 End: 06-26-2023 History of tobacco use Cigarette Smoker [facility] Work Phone: Start: 05-27-2023 End: 10-22-2023 Cigarettes smoked current (pack per day) - Reported 0.5 Bon [facility] Start: 05-27-2023 End: 10-22-2023 Tobacco use and exposure Smokeless tobacco non-user [facility] Work Phone: Start: 05-27-2023 Alcohol intake Not Asked [facility] Work Phone: Start: 05-27-2023 Alcohol Comment rarely [facility] Work Phone: Start: 1970 Sex Assigned At Not on file [facility] Work Phone: Start: 05-17-2023 End: 05-07-2024 Exposure to SARS-CoV-2 (event) Not sure [facility] Start: 07-01-2023 End: 06-09-2024 Alcohol intake Current drinker of alcohol (finding) [facility] Work Phone: Start: 06-26-2012 End: 06-26-2023 Tobacco smoking status NHIS Smoker (finding) [facility] Start: 1970 Sex Assigned At Female F [facility] Start: 10-22-2023 End: 04-07-2024 Tobacco smoking status NHIS Ex-smoker [facility] Work Phone: Start: 04-07-2024 Alcohol Comment rarely, 1x a , month or less [facility] Work Phone: Start: 08-14-2018 End: 04-08-2024 Sex Female (finding) [facility] Has the electric, [employer], or water company threatened to shut off services in your home in past 12Mo No [employer] [employer] (I/We) worried whegomez er (my/our) food would run out before (I/we) got money to buy more. Never true [employer] Start: 02-06-2018 End: 06-08-2024 Tobacco Comment started at age 13 for 4 yrs, quit then started back in 2014 [employer] Start: 06-08-2024 Alcohol Comment socially [facility] Start: 05-26-2014 Tobacco smoking stat us [facility] Smokes tobacco daily [employer] Start: 01-02-2024 Alcoholic beverage intake Current non-drinker of alcohol (finding) [employer] Sexual Orientation [facility] Start: 10-22-2023 Alcoholic beverage intake Ex-drinker (finding) [facility] Start: 01-27-2025 [facility] Work Phone: Medical Equipment Procedure Code Equipment Code Equipment Origin al Text Equipment Identifier Dates Floseal Hemostat [employer]rx 5ml Needle Free [id number] Start: 02-09-2018 Clip Braided 360 Catheter Resolution Ultra - [id number], [id number] FDA Start: 01-07-2024 Comment on above: Description: Clip pl aced at GJ junction Clip Hemostasis Mantis 2.8mm X 235cm - [id number], [id number] FDA Start: 01-07-2024 Comment on above: Description: Clip pl aced at GJ junction Allograft [place] 50x25 Mm 24 Cc Bioadapt - [id number] Start: 06-08-2024 Set Screw 5.5-6. 0 - [id number] Start: 06-08-2024 Screw Poly Solid 6.5x40 - [id number] Start: 06-08-2024 Screw Poly Solid 6.5x45 - [id number] Start: 06-08-2024 Dhaval Ti Prebent 5.5x35 - [id number] Start: 06-08-2024 Functional Status Date Assessment Result Facility 11-23-2021 Functional Status N/A [facility] Clinical Notes 10-11-2020 to 01-25-2025 Note Date & Type Note Facility 01-25-2025 Evaluation note Diagnosis Onset Date Resolution Acute blood loss anemia acute S [id number] 5:04pm Anemia acute January 25, 2025 5:04pm Chronic pulmonary embolism without acute cor pulmonale acute January 25, 025 5:04pm Closed right ankle fracture acute January 25, 025 5:04pm DVT (deep venous thrombosis) acute January 25, 025 5:04pm GI bleed acute January 25, 2025 5:04pm History of Linsey-en-Y gastric bypass acute January 25, 2 025 5:04pm Impaired mobility and ADLs acute January 25 025 5:04pm Left foot pain acute January 25, 2025 5:04pm LV (left ventricular) mural thrombus acute January 25, 025 5:04pm Takotsubo cardiomyopathy acute January 25, 2025 5:04pm [facility] Work Phone: 1(403) 311-367205-28-2025 Evaluation note* Diagnosis Onset Date Resolution Status Admit Date Anxiety acute October 20, 2024 3:30pm Chronic pain syndrome acute October 20, 2024 3:30pm [facility] Work Phone: 1(605) 488-398803-04-2025 Evaluation note* Diagnosis Onset Date Resolution Status Admit Date Anxiety acute July 27 4:03pm Chronic pain syndrome acute Jul 4:03pm [facility] Work Phone: 1(182) 674-537303-04-2025 Evaluation note* Diagnosis Onset Date Resolution Status Admit Date Anxiety acute July 27 4:03pm Chronic pain syndrome acute Mar 2024 4:03pm Anxiety acute October 20, 2024 3:30pm Chronic pain syndrome acute October 20, 2024 3:30pm [facility] Work Phone: 1(177) 174-154101-17-2025 History of Present illness Narrative* Genevieve Jones RN - 06/11/2024 4:11 PM EST Patient discharged to home with . Patient left with all belongings, AVS, prescriptions. Patient sent home with CHG soap for infection prevention. Patient left with hemovac drain and wound vac drain in place. All questions answered at this time. Patient has follow up appointments scheduled with PCP and Dr Holloway Tawana Bai MD - 06/11/2024 1:17 PM EST INTERNAL MEDICINE Progress Note 06/11/2024 1:17 PM Subjective: Admit Date: 06/08/2024 PCP: Maureen Gilmore MD Interval History: No new c/o no [...] Antidepressants. Postoperative care PT/OT Tawana Vidal MD, * Donita Cutler PTA - 06/11/2024 9:08 AM EST [facility] INPATIENT PHYSICAL THERAPY DAILY NOTE [facility] 7K - 7K-18/018-A Discharge Recommendations: Continue to assess pending progress and Subacute/Fdc Facility Equipment Recommendations: No Time In: 0905 Time Out: 0929 Timed Code Treatment Minutes: 24 Minutes Minutes: [...] Entrance Stairs - Number of Steps: 2 SARITHA Home Equipment: Rollator, Walker - Rolling (transport chair) Bathroom Shower/Tub: Tub/Shower unit Bathroom Toilet: Standard Bathroom Accessibility: Accessible Prior Level of Assist for ADLs: Needs assistance (Spouse assists with showering, dressing, and toileting.) Prior Level of Assist for Homemaking: Needs assistance (Spouse completes all cooking, cleaning, andlaundry.) Homemaking Responsibilities: No Prior Level of Assist for Transfers: Independent Active Processor [employer] Propellant: No Additional Comments: Patient ambulated household distances [...] Exercise: None pt declined Functional Outcome Measures: [facility] (6 CLICK) BASIC MOBILITY AM-[facility] Inpatient Mobility Raw Score : 14 AM-[facility] Inpatient T-Scale Score : 38.1 Modified [place]: Current Functional Status: Not Applicable ASSESSMENT: Assessment: [...] appropriate AD times 20 feet with CGA. Prison Goals Time Frame for Prison Goals : n/a due to short length of stay Following session, patient left in safe position with all fall risk precautions in place. * Neli Smith OTA - 06/11/2024 8:46 AM EST [facility] ORTHOPEDICS 7K Occupational Therapy Daily Note Discharge Recommendations: 24 hour assistance or supervision, Home with assist as needed, Home withassistance of aide, and Home with Home Health OT-Recommend SNF, Pt. declines Equipment Recommendations: No Time In: 0817 Time Out: 0846 Timed Code Treatment Minutes: 29 Minutes Minutes: 29 Date: 06/11/2024 Patient Name: Candy Booth, Gender: female Room: [facility]18/018- : 1970 (53 y.o.) Referring Practitioner: David [...] Entrance Stairs - Number of Steps: 2 SARITHA Home Equipment: Rollator, Walker - Rolling (transport [...] injury in the past year?: Yes Active Processor Solid Propellant: No Patient's Processor Solid Propellant Info: Spouse completes Additional Comments: Patient ambulated [...] no further DME/AE needs, Precautions reviewed. Modified [place]: Current Functional Status: Not Applicable [...] increase indep withinhome environment. Additional Goals?: No [employer] Goals Time Frame for [employer] Goals : No LTGs d/t short estimated [...] PM Subjective: Admit Date: 06/08/2024 PCP: Maureen Gilmore MD Interval History: Feels better today, no [...] Castillo, PT - 06/10/2024 2:09 PM EST [facility] INPATIENT PHYSICAL THERAPY DAILY NOTE [facility] 7K - 7K-18/018-A Discharge Recommendations: Subacute/Fdc Facility Equipment Recommendations: No Time In: 0930 [...] Entrance Stairs - Number of Steps: 2 SARITHA Home Equipment: Rollator, Walker - Rolling (transport chair) Bathroom Shower/Tub: Tub/Shower unit Bathroom Toilet: Standard Bathroom Accessibility: Accessible Prior Level of Assist for ADLs: Needs assistance (Spouse assists with showering, dressing, and toileting.) Prior Level of Assist for Homemaking: Needs assistance (Spouse completes all cooking, cleaning, andlaundry.) Homemaking Responsibilities: No Prior Level of Assist for Transfers: Independent [employer]: No Additional Comments: Patient ambulated household distances [...] independence with functional mobility. Functional Outcome Measures: [facility] (6 CLICK) BASIC MOBILITY AM-[facility] Inpatient Mobility Raw Score : 14 AM-[facility] Inpatient T-Scale Score : 38.1 Modified [place]: Current Functional Status: Not Applicable ASSESSMENT: Assessment: [...] appropriate AD times 20 feet with CGA. [employer] Goals Time Frame for [employer] Goals : n/a due to short length of stay Following session, patient left in safe position with all fall risk precautions in place. * Neli Smith OTA - 06/10/2024 11:56 AM EST [facility] ORTHOPEDICS 7K Occupational Therapy Daily Note Discharge Recommendations: Continue to assess pending progress and Subacute/custodial facility Pt. Declining would recommend 24 hour care and Home Health with OT if returning home. Equipment Recommendations: No Time In: 1129 Time Out: 1156 Timed Code Treatment Minutes: 27 Minutes Minutes: 27 Date: 06/10/2024 Patient Name: Candy Booth, Gender: female Room: [address] [place] [address] : 1970 (53 y.o.) Referring Practitioner: David [...] Entrance Stairs - Number of Steps: 2 SARITHA Home Equipment: Rollator, Walker - Rolling (transport [...] injury in the past year?: Yes Active Processor Solid Propellant: No Patient's Processor [employer]ellant Info: Spouse completes Additional Comments: Patient ambulated household distances with rollator walker with h/o mulitple falls. SUBJECTIVE: RN mined OT session. Pt. In room and agreeable to participate with some encouragement.Pt. Reports fatigue and requesting to return to the chair. PAIN: 8/: low back Vitals: Vitals not assessed per clinical judgement, see nursing flowsheet COGNITION: Decreased Problem Solving and Decreased Safety Awareness ADL: Upper Extremity Dressing: Maximum Assistance. To don abdominal binder refused corset states too tight Toileting: Maximum Assistance. With clothing management Toilet Transfer: Contact Guard Assistance, Minimal Assistance, X 1, with set-up, with verbal cues ,and with increased time for completion. to [facility] . IADL: Not Tested BALANCE: Sitting Balance: [...] benefit from further review. Functional Outcome Measures: AM-[facility] Inpatient Daily Activity Raw Score: 16 Modified [place]: Current Functional Status: Not Applicable ASSESSMENT: Activity [...] increase indep withinhome environment. Additional Goals?: No Prison Goals Time Frame for [employer] Goals : No LTGs d/t short estimated length of stay. Following session, patient left in safe position with all fall risk precautions in place. * Genevieve Jones RN - 06/10/2024 10:30 AM EST Phone call made to Wilver horowitz as pt wound vac not working * [...] Castillo, PT - 06/09/2024 3:54 PM EST [facility] INPATIENT PHYSICAL THERAPY EVALUATION [facility] 7K - 7K-18/018-A Discharge Recommendations: Subacute/Fdc Facility Equipment Recommendations: No Time In: 1500 [...] Entrance Stairs - Number of Steps: 2 SARITHA Home Equipment: Rollator, Walker - Rolling (transport [...] injury in the past year?: Yes Active Processor Solid Propellant: No Additional Comments: Patient ambulated household distances [...] Not Tested Exercise: None Functional Outcome Measures: [facility] (6 CLICK) BASIC MOBILITY AM-[facility] Inpatient Mobility Raw Score : 8 AM-[facility] Inpatient T-Scale Score : 28.52 Modified [place]: Premorbid Functional Status: Not Applicable Current Functional [...] decrease fall risk and return pt to OF. Requires PT Follow-Up: Yes Patient Education: . [...] and gait to be assessed when appropriate. [employer] Goals Time Frame for Prison Goals : n/a due to short length of stay Following session, patient left in safe position with all fall risk precautions in place. * Ariana Bravo OT - 06/09/2024 1:47 PM EST [facility] INPATIENT OCCUPATIONAL THERAPY [facility] 7K EVALUATION Discharge Recommendations: Continue to assess pending progress, Subacute/Fdc Facility Equipment Recommendations: No Time In: 1041 [...] Entrance Stairs - Number of Steps: 2 SARITHA Bathroom Shower/Tub: Tub/Shower unit Bathroom Toilet: Standard [...] wheelchair and able to pivot transfer Active Processor Solid Propellant: No Patient's Processor Solid Propellant Info: Spouse completes VISION:WFL HEARING: WFL COGNITION: [...] to faint and has ringing in ears. Youth Corrections Officer sat pt on EOB and RN notified. Vitals showing tachycardia with HR 148. Activity Tolerance: Patient tolerance of treatment: Good treatment tolerance Functional Outcome Measures: AM-[facility] Inpatient Daily Activity Raw Score: 16 Modified [place]: Premorbid Functional Status: Not Applicable Current Functional Status: Not Applicable Assessment: This 53 year old female presents with s/p lumbar sx. Pt demonstrates weakness, decreased balance, decrease safety awareness, decreased endurance. Pt requires skilled OT intervention to increase indepand safety with all self cares, transfers, mobility, and IADLs to return to OF. Without skilled OT intervention patient is at [...] increase indep withinhome environment. Additional Goals?: No Prison Goals Time Frame for Prison Goals : No LTGs d/t short estimated length of stay. AM-[facility] Inpatient Daily Activity Raw Score: 16 [facility] Inpatient ADL T-Scale Score : 35.96 Following [...] drain care YOON Plata * Alyssa Lantigua, TIFFANIE - 06/08/2024 7:14 PM EST Pt admitted to [facility] via bed from PACU . Complaints: [...] AM Explained patients right to have family, parts representative or physician notified of their admission. Patient has Declined for physician to be notified. Patient has Declined for family/parts representative to be notified. * Thi Jones RN - 06/08/2024 5:30 PM EST 1740 Pt arrives to pacu with oral airway. Pt following commands, minimally responsive to stimuli. Respirations easy and unlabored. 174 Pt coughing, oral airway removed. Pt placed on 2L NC. 174 Pt waking up more, grimacing and yelling [...] at this time 1845 Report called to Shanika MORENO. RN notified of pt's pain control issues. Discussed further pain med regimen. All questions and concerns addressed at this time. 1850 Pt meets criteria to discharge from pacu. Transport requested. 1900 Transport to bedside. Pt transported to in stable condition. * Siri Noble RN - 06/08/2024 12:41 PM EST Pt admitted to [facility] room 11 and oriented to unit. SCD sleeves applied. Nares swabbed. Pt verbalized permission for first name, last initial and physicians name on white board. [facility] board and discharge criteria explained, pt and family verbalized understanding. Pt denies thoughts of harming self or others. Call light in reach. Family at the bedside. Trev [phone] * Conchita Sawyer RN - 06/04/2024 2:00 [...] call us back at your earliest convenience; [phone] documented in this encounterBon [facility] Hospital Discharge instructions* Discharge Instructions* Genevieve Jones [...] an appointment, please contactthe office) - ext [phone] If any concerning symptoms, such as calf pain/swelling, new numbness/tingling or pain please the contact the office. If concerning symptoms including chest pain or difficulty breathing, go to the Emergency Department. documented in this encounterBon [facility]12-13-[facility] History of Present illness Narrative* Yossi Hunter MD - 05/07/2024 9:15 AM EST .CARDIOLOGY OFFICE VISIT CHIEF COMPLAINT Chief Complaint Patient presents with Pre-op Clearance POC to have lumbar surgery on pending with Dr. Jovana Guardado in [facility] HISTORY OF PRESENT ILLNESS Candy Booth is a 53 y.o. year old female patient with a history of a mildly dilated ascending aorta which measured 3.9 cm on the recent CTA in June 2023 that showed mild nonobstructive disease in the coronaries. She had recent ICU admission in [place] for GI bleeding December 2023 and had [...] and time. [facility] Work Phone: 1(950) 661-639112-13-2024 Instructions* Patient Instructions* Paulo Bucio LPN - [...] time of your visit. [facility] Work Phone: 1(588) 187-500211-14-2024 Evaluation note* Diagnosis Onset Date Resolution Status Admit Date Anxiety acute April 08, 2024 2:57pm Chronic pain syndrome acute Mar 2:57pm Lumbar degenerative disc disease acute April 08, 2 024 2:57pm Peripheral neuropathic pain acute April 08, 2024 2:57pm Preoperative examination acute April 08, 2024 2:57pm Dysuria acute April 29, 2024 3:15pm Hyponatremia acute April 3:15pm [facility] Work Phone: 1(623) 567-319111-13-2024 History of Present illness Narrative* Yossi Hunter MD - 04/07/2024 8:30 AM EST .CARDIOLOGY OFFICE VISIT CHIEF COMPLAINT Chief Complaint Patient presents with Pre-op Clearance POC to have lumbar surgery on 04/21/[address] Jovana Guardado in [facility] HISTORY OF PRESENT ILLNESS Candy Booth is a 53 y.o. year old female patient with a history of a mildly dilated ascending aorta which measured 3.9 cm on the recent CTA in June 2023 that showed mild nonobstructive disease in the coronaries. She had recent ICU admission in [place] for GI bleeding December 2023 and had [...] Smoker Heart valve disease Dilation of aorta ([facility]) Pre-op examination Other Visit Diagnoses Pre-operative [...] and time. documented in [facility] Work Phone: 1(367) 101-748411-13-2024 Instructions* Patient Instructions* Paulo Bucio LPN - [...] time of your visit. documented in this [facility] Work Phone: 1(201) 976-779811-05-2024 Evaluation note* Diagnosis Onset Date Resolution Status [...] 29, 2024 3:15pm Hyponatremia acute April 3:15pm [facility] Work Phone: 1(332) 275-906808-27-2024 Evaluation note* Diagnosis Onset Date Resolution Status Admit Date Anemia due to blood loss acute January 20, 2024 1:48pm Chronic gastrojejunal anastomotic ulcer acute January 19, 2 024 1:48pm Weakness acute January 19, 2 024 1:48pm Cellulitis of left foot acute 2023 11:15am Left foot pain acute January 30, 2024 11:15am Anxiety acute February 25, 2 024 2:56pm Chronic pain syndrome acute Feb 2:56pm Depression acute February 25, 2 024 2:56pm Left foot pain acute February 2:56pm Anxiety acute March 30, 2024 3:27pm Chronic pain syndrome acute Mar 3:27pm [facility] Work Phone: 1(809) 415-330408-12-2024 Hospital course Narrative* Ana Malone RN - 01/05/2024 7:15 PM EDT Discharge order noted. AVS printed and reviewed with patient. Reviewed Medications and scripts thatwill be sent home. Answered patient questions at this time. All belongings were checked and sent with patient. Patient and spouse Trev expressed understanding of all teachings and no further questions at this time. [facility] Discharge instructions* Discharge Instr - JOCY* Shona Greenberg RN - 01/05/2024 5:45 PM EDT Continuity of Care Form Patient Name: Candy Booth : 1970 Admit date: 12/30/2023 Discharge date: 01/05/24 Code Status Order: Full Code Advance Directives: Advance Care Flowsheet Documentation Admitting Physician: Christopher Morataya MD PCP: Maureen Gilmore MD Discharging Nurse: Ana Malone RN Discharging Hospital Unit/Room#: Discharging Unit Emergency Contact: Extended Emergency Contact Information Primary Emergency Contact: Emmy Karimi [facility] Mobile Relation: Spouse Secondary Emergency Contact: Amy [...] IR EMBOLIZATION HEMORRHAGE 01/01/2024 Nasir Martinez MD [facility] SPECIAL PROCEDURES LAPAROSCOPY Small bowel obstruction due to adhesions CT COLONOSCOPY FLX DX W/COLLJ SPEC WHEN PFRMD N/A 10/20/2017 COLONOSCOPY performed by Juancarlos Maldonado MD at [facility] Endoscopy CT EGD TRANSORAL CONTROL BLEEDING ANY METHOD Left 10/19/2017 EGD CONTROL HEMORRHAGE performed by Juancarlos Maldonado MD at [facility] Endoscopy CT LAMNOTMY INCL W/DCMPRSN NRV ROOT 1 INTRSPC LUMBR N/A 02/09/2018 L4-5 DISKECTOMY LEFT performed by Ronal Matos MD at [facility] OR UPPER GASTROINTESTINAL ENDOSCOPY UPPER GASTROINTESTINAL ENDOSCOPY N/A 01/01/2024 ESOPHAGOGASTRODUODENOSCOPY CONTROL HEMORRHAGE performed by Sandy Rodgers MD at [facility] OR UPPER GASTROINTESTINAL ENDOSCOPY 01/01/2024 ESOPHAGOGASTRODUODENOSCOPY SCLEROTHERAPY performed by Sandy Rodgers MD at [facility] OR Immunization History: Immunization History Administered Date(s) Administered COVID-19, PFIZER PURPLE top, DILUTE for use, (age 12 y+), 30mcg/0.3mL 08/02/2020, 08/22/2020, 05/13/2021 Active Problems: Patient Active Problem List Diagnosis Code Hypovolemic shock (HCC) R57.1 Acute upper GI bleed K92.2 Lactic acidosis E87.20 Hyponatremia E87.1 Orthostatic hypotension I95.1 Hypotension due to blood loss I95.89, R58 AAA (abdominal aortic aneurysm) ([facility]) I71.40 Complex regional pain syndrome [id number] Peptic ulcer disease K27.9 Acute blood loss anemia D62 GI bleed K92.2 MVP (mitral valve prolapse) I34.1 Iron deficiency E61.1 Troponin level elevated R79.89 Hypocalcemia E83.51 Hypokalemia E87.6 Hypoalbuminemia due to protein-calorie malnutrition ([facility]) E88.09, E46 Gastric ulcer without hemorrhage or [...] Assisted Dressing Assisted Toileting Assisted Feeding Independent Marketing Segment Manager Independent Med Delivery whole Wound Care Documentation [...] last 3 completed shifts: In: 2552.7 [P.O.:510; I.V.:2041.7] Out: 4135 [Urine:4135] Safety Concerns: At Risk [...] are sent with patient): None, Cell phone, auto service writer, shoes pants shirt RN SIGNATURE: CASE MANAGEMENT/SOCIAL WORK SECTION Inpatient Status Date: Readmission Risk Assessment Score: Readmission Risk Risk of Unplanned Readmission: 15 Discharging to Facility/ Agency Name: Address: Phone: Fax: Dialysis Facility (if applicable) Name: Address: Dialysis Schedule: Phone: Fax: Level Glass Forming Machine Operator/Computer Aided Design Designer signature: {Pratimagnature:[id number]} PHYSICIAN SECTION Prognosis: Fair Condition at Discharge: [...] mEq (POTASSIUM EXTENDED-RELEASE DISPERSIBLE TABLET - ORAL) (Malagasy) * Hypotension (Malagasy) * GI Bleed (Malagasy) documented in [facility] History of Present illness Narrative* Yael Santamaria, OT - 01/05/2024 12:15 PM EDT Facility/Department: [facility] 2- STEPDOWN Occupational Therapy Initial Evaluation Patient [...] Ambulation Assistance: Independent Transfer Assistance: Independent Active Processor Solid Propellant: No Patient's Processor Solid Propellant Info: Spouse completes Occupation: On disability Leisure [...] sat on toilet to thread undergarments at [facility] for safety; Pt required increased time to thread socks over toes seated on toilet. Pt able to complete clothing mgmt over hips at [facility] Toileting: Contact guard assistance Toileting Skilled Clinical Factors: Pt required [facility] for clothing mgmt standing at toilet; Pt sat ontoilet and completed hygiene seated at [facility] for safety; Pt utilized to complete transfer on/off toilet for support; Balance Balance Sitting: With support (CGA seated on toilet during dynamic tasks, SBA unsupported on recliner ~12 minutes cumulatively) Standing: With support (toileting tasks, sinkside ADLs, using RW for support, able to complete withhand release from RW at [facility] grossly 6-7 minutes) Transfers/Mobility Bed [...] training, Self-Care / ADL, Home management training AM-[facility] Daily Activities Inpatient [facility] Daily Activity - Inpatient How much help [...] How much help for eating meals?: None [facility] Inpatient Daily Activity Raw Score: 20 [facility] Inpatient ADL T-Scale Score : 42.03 ADL [...] from the original note were not included. [facility] Office: [phone] Carter Melendez DO, Anuj Lim DO, Isela Hensley DO, Jayjay Be, DO, Garry Braun MD, [...] Leung MD, Bryant Carrillo MD, Christina Mackey, 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, Sherri Nunes, 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, Cory Andrade, 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, Debbie Solis, [facility],Radha Augustin, 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, Alyssa Judge, 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, Kristen Daly, 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, Jennifer Francis, 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, Neli Bolanos PAAaronC, FAINA MoreC, Jayshree Oswald, 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, Oralia Fisher, 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, Rachel Allison, 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, Kerry Rodas,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, Rashmi Torres, RN MEDICAL SURGICAL, Jaky Green, 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, Damaris Chauhan, 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, Carol Gimenez, 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 [facility] IN-PATIENT SERVICE [facility] Progress Note 01/05/2024 7:56 AM Name: Candy Booth Acct: [id number] Room: IP Day: 6 Admit Date: 12/30/2023 5:58 PM PCP: Maureen Gilmore MD Code Status: Full Code Subjective: C/C: [...] hysterectomy who presented as a transfer from [facility] with complaints of dark black stool. Patient was treated with PPI, given 5 units PRBC and transferred to [facility] for further GI workup and management. GI [...] this interval not displayed. Chemistry: Recent Labs 01/03/2412601/03/2459901/04/24 0457 NA -- 140 138 K 3.1* 3.4* 3.1* CL -- 106 104 CO2 -- GLUCOSE -- 95 97 BUN -- 3* 3* CREATININE -- 0.3* 0.3* MG -- 1.8 -- ANIONGAP -- 10 10 LABGLOM -- >90 >90 CALCIUM -- 8.2* 8.0* Recent Labs 01/02/24 161 POCGLU 93 ABG:No results found for: POCPH , PHART , PH , POCPCO2 , EKM9LSK , PCO2 , POCPO2 , PO2ART , PO2 , POCHCO3 , FCZ8OSH , HCO3 , NBEA , PBEA , BEART , BE , THGBART , THB , JTZ7XXD , ESSY8SQI , X8ICPFGJ , O2SAT , FIO2 No results found [...] Continue on PPI, Carafate Follow-up with Dr. Rodgers outpatient Avoid NSAID Hypokalemia Replacement ordered Recheck [...] Patient's name: Candy Booth Patient's account/billing number: [id number] Patient's Date of : 1970 Age: 53 y.o. Date of Admission: 12/30/2023 5:58 PM Length of stay during current admission: 5 Primary Care Physician: Maureen Gilmore MD Code Status: Full Code Mode of [...] use at the time presented initially to [facility] with syncope and acute rectal bleeding. Patient was treated with IV PPI, given 5 units PRBCs, was transferred to [facility] for further GI workup and management of [...] total 2 unit of blood here at [place]. Patient received a normal saline bolus, [...] treatable arterial lesion at this time. Rt TRACTOR MECHANIC sheath left in place. Current Vitals: BP [...] Department of Internal Medicine/ Critical care [facility]) 01/04/2024, 2:35 PM * Tl Salazar APRN - 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 - 01/04/2024 10:37 AM EDT [facility] Gastroenterology Progress Note Candy Booth is a [...] results for input(s): TIBC , FERRITIN , BTAOKXUV75 , FOLATE , OCCULTBLD in the last [...] up in the GI office with Dr. Rodgers for possible repeat EGD in 4-6 weeks. Pt may need additional therapy/intervention. GI will sign off. This plan was formulated in collaboration with Dr. Dorothy MD Thank you for allowing me to participate in the care of your patient. Please feel free to contact me with any questions or concerns. [facility] Gastroenterology Tl Salazar, DOMESTIC VIOLENCE ADVOCATE - 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 [phone] 01/04/2024 10:37 AM Estimated time of 20 [...] Continue on PPI, carafate Follow with Dr Rodgers GI will sign off, please call with [...] from the original note were not included. [facility] BARIATRICS SURGERY CONSULT NOTE PATIENT: Candy Booth [...] abdominal pain. Patient was a transfer from [facility] 4 days ago after an acute dark [...] unit of blood so far here at [place]. Pt seen and examined this morning [...] IR EMBOLIZATION HEMORRHAGE 01/01/2024 Nasir Martinez MD [facility] SPECIAL PROCEDURES LAPAROSCOPY Small bowel obstruction due to adhesions CT COLONOSCOPY FLX DX W/COLLJ SPEC WHEN PFRMD N/A 10/20/2017 COLONOSCOPY performed by Juancarlos Maldonado MD at [facility] Endoscopy CT EGD TRANSORAL CONTROL BLEEDING ANY METHOD Left 10/19/2017 EGD CONTROL HEMORRHAGE performed by Juancarlos Maldonado MD at [facility] Endoscopy CT LAMNOTMY INCL W/DCMPRSN NRV ROOT 1 INTRSPC LUMBR N/A 02/09/2018 L4-5 DISKECTOMY LEFT performed [place] Ronal Matos [place] [facility] [place] UPPER GASTROINTESTINAL ENDOSCOPY UPPER GASTROINTESTINAL ENDOSCOPY N/A 01/01/2024 ESOPHAGOGASTRODUODENOSCOPY CONTROL HEMORRHAGE performed by Sandy Rodgers MD at [facility] OR UPPER GASTROINTESTINAL ENDOSCOPY 01/01/2024 ESOPHAGOGASTRODUODENOSCOPY SCLEROTHERAPY performed by Sandy Rodgers MD at [facility] OR ALLERGIES: Nsaids, Milk (cow), Acetaminophen-codeine, and [...] by mouth at bedtime Cholecalciferol (VITAMIN D3) 66865 units CAPS, Take by mouth Twice a [...] Cessation -Avoid NSAID's Associated attestation - Margaret Hua DO - 01/04/2024 3:17 PM EDT I [...] - 01/04/2024 Room and Bed Number - 3024/30208-24 Hospital Day - 5 No chief complaint [...] abdominal pain. Patient was a transfer from [facility] 4 days ago after an acute dark [...] unit of blood so far here at [place]. OBJECTIVE: VITAL SIGNS: Patient Vitals for [...] Nightly Continuous Infusions: pantoprazole 8 mg/hr (01/04/24 06) sodium chloride sodium chloride sodium chloride 50 [...] Last 3 Blood Glucose: Recent Labs 01/01/24 19301/02/24 0508 01/03/24 0600 01/04/24 0457 GLUCOSE 104* 105* 95 97 PT/INR: Lab Results Component Value Date/Time PROTIME 12.3 01/01/2024 07:13 PM INR 0.9 01/01/2024 07:13 PM PTT: Lab Results Component Value Date/Time APTT 24.6 01/01/2024 07:13 PM APTT 26.6 02/06/2018 08:24 AM Basic Metabolic Profile: Recent Labs 01/02/24 0508 01/03/24 0127 01/03/24 [...] blood loss 10/18/2017 AAA (abdominal aortic aneurysm) ([facility]) Complex regional pain syndrome Peptic ulcer disease 09/23/2017 PLAN: WEAN PER PROTOCOL: [] No [] Yes [x] N/A ICU PROPHYLAXIS: Stress ulcer: [x] PPI Agent [] [id number] [] Sucralfate [] Other [] None VTE: [...] standpoint Livia Manzo MD Critical Care, PGY-1 [facility], [facility] 01/04/24 7:15 AM Attending Physician Statement [...] this chart was generated using voice recognition Dragon dictation software. Although every effort was made to ensure the accuracy of this automated extrusion supervisor, some errors in extrusion supervisor may have occurred. * Tl Salazar, DOMESTIC VIOLENCE ADVOCATE - 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 - 01/03/2024 11:49 AM EDT [facility] Gastroenterology Progress Note Candy Booth is a [...] results for input(s): TIBC , FERRITIN , UYOQOKSR11 , FOLATE , OCCULTBLD in the last 72 hours. Invalid input(s): LABIRON BMP: Recent Labs 01/01/24 04101/01/24 1933 01/02/24 0508 01/03/24 0127 01/03/24 0600 NA 139 [...] contact me with any questions or concerns. [facility] Gastroenterology Tl Salazar, DOMESTIC VIOLENCE ADVOCATE - 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 [phone] 01/03/2024 11:49 AM Estimated time of 20 [...] abdominal pain. Patient was a transfer from [facility] 4 days ago after an acute dark [...] unit of blood so far here at [place]. OBJECTIVE: VITAL SIGNS: Patient Vitals for [...] displayed. Last 3 Blood Glucose: Recent Labs 01/01/24 0411 01/01/24 1933 01/02/24 0508 01/03/24 0600 GLUCOSE 86 104* 105* 95 PT/INR: Lab Results Component Value Date/Time PROTIME 12.3 01/01/2024 07:13 PM INR 0.9 01/01/2024 07:13 PM PTT: Lab Results Component Value Date/Time APTT 24.6 01/01/2024 07:13 PM APTT 26.6 02/06/2018 08:24 AM Basic Metabolic Profile: Recent Labs 01/01/24 0411 01/01/24 1933 01/02/24 0508 01/03/24 0127 01/03/24 0600 NA 139 [...] blood loss 10/18/2017 AAA (abdominal aortic aneurysm) ([facility]) Complex regional pain syndrome Peptic ulcer disease 09/23/2017 PLAN: WEAN PER PROTOCOL: [] No [] Yes [x] N/A ICU PROPHYLAXIS: Stress ulcer: [x] PPI Agent [] [id number] [x] Sucralfate [] Other [] None VTE: [...] C) Antimicrobials: not indicated Hematology: Recent Labs 01/02/24195201/03/247 08/10/24 0600 HGB 9.1* 9.0* 8.6* trending down [...] standpoint Livia Manzo MD Critical Care, PGY-1 [facility], [facility] 01/03/24 11:41 AM Attending Physician Statement [...] this chart was generated using voice recognition Doctor kineticon dictation software. Although every effort was made to ensure the accuracy of this automated extrusion supervisor, some errors in extrusion supervisor may have occurred. * Margaret Hua DO - 01/03/2024 7:45 AM EDT Images from the original note were not included. [facility] BARIATRICS SURGERY CONSULT NOTE PATIENT: Candy Booth [...] abdominal pain. Patient was a transfer from [facility] 4 days ago after an acute dark [...] unit of blood so far here at [place]. She feels improved and has not [...] IR EMBOLIZATION HEMORRHAGE 01/01/2024 Nasir Martinez MD [facility] SPECIAL PROCEDURES LAPAROSCOPY Small bowel obstruction due to adhesions CT COLONOSCOPY FLX DX W/COLLJ SPEC WHEN PFRMD N/A 10/20/2017 COLONOSCOPY performed by Juancarlos Maldonado MD at [facility] Endoscopy CT EGD TRANSORAL CONTROL BLEEDING ANY METHOD Left 10/19/2017 EGD CONTROL HEMORRHAGE performed by Juancarlos Maldonado MD at [facility] Endoscopy CT LAMNOTMY INCL W/DCMPRSN NRV ROOT 1 INTRSPC LUMBR N/A 02/09/2018 L4-5 DISKECTOMY LEFT performed [place] Ronal Matos MD [place] [facility] [place]PPER GASTROINTESTINAL ENDOSCOPY UPPER GASTROINTESTINAL ENDOSCOPY N/A 01/01/2024 ESOPHAGOGASTRODUODENOSCOPY CONTROL HEMORRHAGE performed by Sandy Rodgers MD at [facility] OR UPPER GASTROINTESTINAL ENDOSCOPY 01/01/2024 ESOPHAGOGASTRODUODENOSCOPY SCLEROTHERAPY performed by Sandy Rodgers MD at [facility] OR ALLERGIES: Nsaids, Milk (cow), Acetaminophen-codeine, and [...] by mouth at bedtime Cholecalciferol (VITAMIN D3) 15192 units CAPS, Take by mouth Twice a [...] in this interval not displayed. Recent Labs 01/01/24193201/02/24 05001/03/247 01/03/24 0600 NA 137 141 -- 140 [...] EDT Physician Progress Note PATIENT: CANDY BOOTH CSN #: [id number] : 1970 ADMIT DATE: 12/30/2023 5:58 PM DISCH DATE: RESPONDING PROVIDER #: Christopher Morataya MD QUERY TEXT: Patient admitted with GI bleed. Noted to have supervisor title assessment with malnutrition diagnosis in Nutrition Assessment [...] longer, albumin 2.8, total protein 5.0 Treatment: supervisor title consult, Continue Current Diet advance as tolerated, monitor PO intake, diet tolerance, weight, labs ASPEN Criteria: [email or web address]/full/[email or web address] 5 Thank you, Callie BAUER RN, CDI email - [email or web address] cell- [phone] office hours [id number] Options provided: -- Protein calorie malnutrition moderate [...] back tomorrow, 01/02 Treatment performed by Student LEAD CYTOGENETIC TECHNOLOGIST under the supervision of co-signing LEAD CYTOGENETIC TECHNOLOGIST who agrees with all treatment and documentation. Zeyad Ashley, LEAD CYTOGENETIC TECHNOLOGIST * Mayuri Kilgore RN - 01/02/2024 3:59 PM EDT 1400: Youth Corrections Officer has been caring for patient all shift since 0700, @ 1400 patient suddenly became untrusting of editorial writer. Patient is unable to answer orientation questions at this time. Provided notified. 1500: Orders placed, see JUL. 1533: Medication administered via Charge Nurse. Patient stating that editorial writer is not allowed to help her. Patient then called supercharger repair supervisor names. 1550: Youth Corrections Officer assisting with IV beeping, patient stated that editorial writer needed to give back the patient daughter, and stop playing on the boats. Youth Corrections Officer attempted to re-orient unsuccessfully. Patient demanded that editorial writer leave her house. She is refusing to allow editorial writer to provide medications/care at thistime. risk control consultant aware. 1700: patient continues to refuse all care. Youth Corrections Officer attempted to reorient, patient demands editorial writer leave the room and not do anything. 1745: at bedside. Youth Corrections Officer attempted to update, patient spouse began arguing with editorial writer thatpatient is withdrawing from pain medications. Youth Corrections Officer attempted to explain that patient has had opioid medications today however he spoke over editorial writer and would not accept explanation at this time. Conversation terminated due to escalating. 1800: Youth Corrections Officer requested another RN to assist due to [...] loss Fluid Accumulation: No significant fluid accumulation Solar Thermal Technician Strength: Not Performed Nutrition Assessment: Pt s/p [...] Measures: Height: 170.2 cm (5' 7.01 ) [place] Body Weight (IBW): 135 lbs (61 kg) [...] Used for Energy Requirements: Admission Energy (kcal/day): 0522-2394 kcals/day Weight Used for Protein Requirements: Admission [...] to determine Rody Soto RD, CALEB Contact: [phone] * Yael Santamaria OT - 01/02/2024 1:28 PM EDT Images from the original note were not included. [facility] Occupational Therapy Not Seen Note DATE: 01/02/2024 [...] Patient's name: Candy Booth Patient's account/billing number: [id number] Patient's Date of : 1970 Age: 53 y.o. Date of Admission: 12/30/2023 5:58 PM Length of stay during current admission: 3 Primary Care Physician: aMureen Gilmore MD ICU Attending Physician: Code Status: Full [...] Date 01/02/24 0000 - 01/02/24 2359 Shift 6401-9249 6951-4234 0391-4542 24 Hour Total INTAKE I.V.(mL/kg) 3821.8(44.4) 3821.8(44.4) [...] mL/hr at 01/02/24 05 sodium chloride PRN Meds: potassium chloride, 40 [...] results found for: PHART , PH , RVI0APD , PCO2 , PO2ART , PO2 , MYG4SPD , HCO3 , BEART , BE , THGBART , THB , VZU1VOB , Z1CWHXXX , O2SAT , FIO2 Lactic Acid: No [...] 72 hours. LFTS Recent Labs 12/31/23 0046 01/01/241 01/01/241932 ALKPHOS 174* 161* 124* ALT 13 10 13 AST 47* 40* 42* BILITOT 0.4 0.3 0.8 BILIDIR 0.2 <0.2 -- AMYLASE/LIPASE/AMMONIA Recent Labs 01/01/241932 LIPASE 18 Last 3 Blood Glucose: Recent Labs 12/31/23 0046 01/01/24 0411 01/01/24 19301/02/24 0508 GLUCOSE 89 86 104* 105* HgBA1c: No results found for: LABA1C TSH: Lab Results Component Value Date/Time TSH 6.81 12/31/2023 12:46 AM ANEMIA STUDIES Recent Labs 12/31/23 0046 12/31/23 0727 TIBC -- 213* [id number] 271 -- FOLATE 5.4 -- Cultures during [...] MD Department of Internal Medicine/ Critical care [place], [place] 01/02/2024 8:26 AM Attending Physician Statement [...] this chart was generated using voice recognition Doctor kineticon dictation software. Although every effort was made to ensure the accuracy of this automated extrusion supervisor, some errors in extrusion supervisor may have occurred. * Rachel Brewer, - 01/02/2024 6:40 AM EDT Images from the original note were not included. [facility] BARIATRICS SURGERY PROGRESS NOTE Patient Name: Candy [...] Piggyback:100] Out: 1529 [Urine:1527; Stool:2] Date 01/02/24 0000 - 01/02/24 2359 Shift 8893-1847 0550-7327 7270-5444 24 Hour Total INTAKE I.V.(mL/kg) 3821.8(44.4) 3821.8(44.4) [...] 1.0 -- -- -- -- Recent Labs 12/31/234501/01/2441001/01/24191201/01/241932 TSH 6.81* -- -- -- AST 47* 40* -- 42* ALT 13 10 -- 13 LDH 168 -- -- -- ALKPHOS 174* 161* -- 124* BILITOT 0.4 0.3 -- 0.8 BILIDIR 0.2 <0.2 -- -- LIPASE -- -- -- 18 POCGLU -- -- 111* -- Glucose: Recent Labs 01/01/241912 POCGLU 111* ABG:No results found for: POCPH , PHART , PH , POCPCO2 , VAP3BLZ , PCO2 , POCPO2 , PO2ART , PO2 , POCHCO3 , MAD1SWG , HCO3 , NBEA , PBEA , BEART , BE , THGBART , THB , EWW8DPM , ICAT2XHS , M9PASPUG , O2SAT , FIO2 Radiology: CTA ABDOMEN [...] Surgery Resident, PGY-3 Associated attestation - Margaret Hua DO - 01/02/2024 7:49 PM EDT I [...] questions answered * Mel Castillo APRN - SHAUNA - 01/02/2024 6:05 AM EDT [facility] Candy Booth is a [...] for: PLTFLUORE PT/INR Recent Labs 12/31/23 0046 12/31/2372601/01/241912 PROTIME 11.8 11.9 12.3 INR 0.9 0.9 0.9 ANEMIA STUDIES Recent Labs 12/31/234512/31/23726 IRONPERSAT -- 11* TIBC -- 213* IRON -- 24* [id number] 271 -- FOLATE 5.4 -- BMP Recent [...] ALBUMIN 3.0* 2.8* PT/INR Recent Labs 12/31/23 00412/31/2372601/01/241912 PROTIME 11.8 11.9 12.3 INR 0.9 0.9 0.9 Cancer Markers: CEA: No results found for: CEA Ca 125: No results found for: CA125 Ca 19-9: No results found for: CA199 AFP: No results found for: AFP Lactic acid: Recent Labs 12/31/2345 LACTACIDWB 1.0 Radiology Review: .. CTA ABDOMEN [...] chronic pain who presented as transfer from [facility] where patient initially presented there 12/28/2019 for with syncopal episode and acute rectal bleeding. Patient had downward trend of hemoglobin and transferred to [facility] for GI bleed evaluation 1. Melena- EGD [...] plan was formulated in collaboration with Dr. Rodgers Please feel free to contact me with any questions or concerns. Thank you for allowing me to participate in the care of your patient. Mel Castillo, MAC - 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 on 01/02/2024 at 6:06 AM [facility] Please note that this note was generated using a voice recognition dictation software. Although every effort was made to ensure the accuracy of this automated extrusion supervisor, some errors in extrusion supervisor may have occurred. Associated attestation - Sandy Rodgers MD - 01/02/2024 6:30 PM EDT Attested: [...] review of system. Electronically signed by Sandy Rodgers MD * Jeff Gaspar, PT - 01/01/2024 3:02 PM EDT Physical Therapy Facility/Department: [address] ONC/MED SURG Physical Therapy Initial Assessment [...] Assistance: Needs assistance Transfer Assistance: Independent Active Processor Solid Propellant: No Mode of Transportation: Family Occupation: On [...] Dynamic: Fair OutComes Score AM-PAC - Mobility AM-PAC Basic Mobility - Inpatient How much help [...] climbing 3-5 steps with a railing?: Total AM-PAC Inpatient Mobility Raw Score : 16 [facility] Inpatient T-Scale Score : 40.78 Mobility Inpatient [...] from the original note were not included. [facility] Office: [phone] Carter Melendez DO, Anuj Lim DO, Isela [...] Leung MD, Bryant Carrillo MD, Christina Mackey, 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, Sherri Nunes, 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, Cory Andrade, 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, Debbie Solis, IVAN,Radha Augustin, 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, Alyssa Judge, 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, Kristen Daly, 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, Jennifer Francis, 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, Neli Bolanos, PA-C, Shruthi Carlos, PA-C, Jayshree Oswald, 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, Oralia Fisher, 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, Rachel Allison, 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, Kerry Rodas,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, Rashmi Torres, RN MEDICAL SURGICAL, Jaky Green, 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, Damaris Chauhan, 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, Carol Gimenez, 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 [facility] IN-PATIENT SERVICE [facility] Progress Note 01/01/2024 9:21 AM Name: Candy Booth Acct: [id number] Room: [facility] Day: 2 Admit Date: 12/30/2023 5:58 PM PCP: Maureen Gilmore MD Code Status: Full Code Subjective: C/C: [...] w/ chronic pain who initially presented to [facility] on 12/28/2023 status post syncope with acute rectal bleeding. Patient treated conservatively with IV PPI with suspected GI bleed status post 5 units PRBCs and recommended for transfer for further GI workup to [facility] for the management of GI bleed. Patient does describe recent ENT infection with left cervical painful lymphadenopathy status post 10-day course of clindamycin in mid to late November. Patient states she had worsening indigestion with nausea which she attributed to the clindamycin. She describes acute diarrhea with rectal bleeding complicated by near syncope/syncope and collapse prior to presenting to [place] ED. Patient admits to prior history of [...] 2/3 AM. Patient does follow with cardiology [facility]. Was recommended for antihypertensive regimen but states that the unit receptionist did not get the prescription sent [...] Intolerance, sleep apnea Current Meds: Scheduled Meds: [Jul] potassium chloride 10 mEq IntraVENous Q1H sodium [...] [JUL Hold] potassium alternative oral replacement OR [Jul] potassium chloride, naloxone 0.4 mg in 10 mL sodium chloride syringe, sodium chloride flush, sodium chloride, fentanNYL, fentanNYL, ondansetron, diphenhydrAMINE, [JUL Hold] ipratropium0.5 mg-albuterol 2.5 mg, [JUL Hold] guaiFENesin, [JUL Hold] benzonatate, [Jul] sodium chlorideflush, [JUL Hold] sodium chloride, [MAR Hold] ondansetron OR [JUL Hold] ondansetron, [JUL Hold]acetaminophen OR [JUL Hold] acetaminophen, [JUL Hold] ALPRAZolam, [JUL Hold] oxyCODONE OR [JUL Hold] oxyCODONE, [JUL Hold] HYDROmorphone, [MAR Hold] labetalol, [MAR Hold] hydrALAZINE Data: Past Medical History: has [...] 0046 12/31/23 0727 12/31/23 1222 01/01/24 0144 01/01/2441001/01/24 0630 WBC 5.2 -- -- -- 4.9 [...] 3.7 -- LACTACIDWB 1.0 -- Recent Labs 12/31/23 0046 01/01/24410 TSH 6.81* -- AST 47* 40* ALT 13 10 LDH 168 -- ALKPHOS 174* 161* BILITOT 0.4 0.3 BILIDIR 0.2 <0.2 ABG:No results found for: POCPH , PHART , PH , POCPCO2 , RKK8YCG , PCO2 , POCPO2 , PO2ART , PO2 , POCHCO3 , DGU6APC , HCO3 , NBEA , PBEA , BEART , BE , THGBART , THB , SNE8UNN , DEOO6WCK , Z4GZKMYT , O2SAT , FIO2 No results found [...] loss Fluid Accumulation: No significant fluid accumulation Solar Thermal Technician Strength: Not Performed Nutrition Assessment: Pt admit from [facility] for management of GI bleed. Seen for [...] Measures: Height: 170.2 cm (5' 7 ) [place] Body Weight (IBW): 135 lbs (61 kg) [...] Used for Energy Requirements: Current Energy (kcal/day): 7558-7336 kcal/d Weight Used for Protein Requirements: Current [...] time Kadi Slaughter MS, RDN, LDN Contact: [phone] * Suzanne Celeste MD - 12/31/2023 1:24 PM EDT Images from the original note were not included. [facility] Office: [phone] Carter Melendez DO, Anuj Lim DO, Isela [...] Leung MD, Bryant Carrillo MD, Christina Mackey, 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, Sherri Nunes, 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, Cory Andrade, 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, Debbie Solis, [facility],Radha Augustin, 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, Alyssa Judge, 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, Kristen Daly, 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, Jennifer Francis, 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, Neli Bolanos, PA-C, Shruthi Carlos, PA-C, Jayshree Oswald, 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, Johanny Henderson, 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, Oralia Fisher, 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, Rachel Allison,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, Kerry Rodas, 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, Rashmi Torres, RN MEDICAL SURGICAL, Jaky Green, 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, Damaris Chauhan, 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, Carol Gimenez, 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 [facility] IN-PATIENT SERVICE [facility] Second Visit Note For more detailed information please refer to the progress note of the day 12/31/2023 1:24 PM Name: Candy Booth Acct: [id number] Room: 0441/0441-01 Day: 1 Admit Date: 12/30/2023 5:58 PM PCP: Maureen Gilmore MD Code Status: Full Code Pt vitals were reviewed New labs were reviewed Patient was seen. She had 1 BM this am which was bloody. Hemoglobin stable. She will have EGD in am. Updated plan : GI bleed - patient to be seen by GI. Monitor h/h. S/p 5 u [facility]BC at [facility]. EGD today. Currently tolerating clear liquid diet. On IV protonix drip. Transfuse as needed. Acute diarrhea - stool studies pending. C diff negative. Monitor I/O's Acute blood loss anemia - s/p 5 U PRBC. She has macrocytosis. B12 borderline. H/o gastric bypass. Will start B12. Moderate mitral and aortic regurgitation - Echo reviewed. LV function wnl. She has been evaluated by [facility] cardiology and had CTA for [...] Monitor Chronic lumbar pain - on Opiates watcher automat long goods and Lyrica. Home doses continued. DVT prophylaxis- no chemical AC due to GI bleed. SCD's in bed Patient at low risk for EGD. Suzanne Celeste MD 12/31/2023 1:24 PM [facility] NotePROCEDURE: IR EMBOLIZATION VASCULAR ANY HEMORRHAGE [...] for a 0.035 inch wire and 5 Bangladeshi introducer sheath. A 5 Bangladeshi Bren catheter was then used to selectively catheterize the celiac artery and digital angiography was performed in AP and oblique projections. Subsequently, several different catheters were used to attempt selective catheterization of the left gastric artery, ultimately successful with a 5 Bangladeshi Cobra catheter. Digital angiography of the left [...] Signed by: Nasir Martinez MD 01/02/24 [facility] NotePROCEDURE: IR EMBOLIZATION VASCULAR ANY HEMORRHAGE [...] for a 0.035 inch wire and 5 Bangladeshi introducer sheath. A 5 Bangladeshi Bren catheter was then used to selectively catheterize the celiac artery and digital angiography was performed in AP and oblique projections. Subsequently, several different catheters were used to attempt selective catheterization of the left gastric artery, ultimately successful with a 5 Bangladeshi Cobra catheter. Digital angiography of the left [...] branch abnormality/other treatable lesion at this time. [facility] RIS [id number] Miscellaneous Notes* Result Encounter Note - Yossi Hunter MD - 07/15/2023 11:15 AM EST CTA shows very minimal atherosclerosis with no significant stenosis. Recommend routine follow-up and continue to current treatment. [facility] Work Phone: [phone]) 828-642702-20-2024 Nurse Note* Rosaline Vásquez RN - 07/15/2023 [...] to self care with family [facility] Work Phone: 1(596) 681-870902-20-2024 Nurse Note* Rosaline Vásquez RN - 07/15/2023 [...] breathmakes her chest hurt documented [facility] Work Phone: 1(754) 580-103502-20-2024 Nurse Note* Rosaline Vásquez RN - 07/15/2023 [...] breathmakes her chest hurt [facility] Work Phone: 1([phone]) 815-265202-20-2024 Progress note* Result Encounter Note - Yossi Hunter MD - 07/15/2023 11:15 AM EST CTA shows very minimal atherosclerosis with no significant stenosis. Recommend routine follow-up and continue to current treatment. [facility] Work Phone: 1(214) 686-680302-20-2024 Nurse Note* Rosaline Vásquez RN - 07/15/2023 11:08 AM EST Pt. Unable to tolerate deep breathing excercises for HR control. She states that holding her breathmakes her chest hurt [facility] Work Phone: 1(154) 854-882502-12-2024 Evaluation note* Encounter Date Diagnosis Assessment Notes Treatment Notes Treatment Clinical Notes Jun, Lumbar degenerative disc disease (ICD-10 - M51.36) Jun, Medication management (ICD-10 - Z79.899) [facility] Other 02-06-2024 History of Present illness Narrative* [...] and time. documented in [facility] Work Phone: 1(254) 778-442602-06-2024 Instructions* Patient Instructions* Paulo Bucio LPN - 07/01/2023 2:[address] Angio Stop carvedilol Start Metoprolol XL 25 mg BID 3 month visit documented in [facility] Work Phone: 1(418) 764-900301-25-2024 Evaluation note* Encounter Date Diagnosis Assessment Notes Treatment Notes Treatment Clinical Notes May, Lumbar degenerative disc disease (ICD-10 - M51.36) OARRS reviewed Medications refilled Refer to Dr. Gonzalez per patient's request. May, Anxiety disorder, unspecified (ICD-10 - F41.9) Medications refilled. [facility] Other 01-08-2024 Evaluation note* Encounter Date Diagnosis Assessment Notes Treatment Notes Treatment Clinical Notes May, Lumbar degenerative disc disease (ICD-10 - M51.36) May, Anxiety disorder, unspecified (ICD-10 - F41.9) [facility] Other 01-02-2024 History of Present illness Narrative* [...] and time. documented in this [facility] Work Phone: 1([phone]) 277-198401-02-2024 Instructions* Patient Instructions* Paulo Bucio LPN - 05/27/2023 1:45 PM EST Follow up after testing CT Thoracic Echo documented in this [facility] Work Phone: [phone]) 235-826612-07-2023 Evaluation note* Encounter Date Diagnosis Assessment Notes Treatment Notes Treatment Clinical Notes Apr, Lumbar degenerative disc disease (ICD-10 - M51.36) [facility] Other 11-09-2023 Evaluation note* Encounter Date Diagnosis [...] to go to ER by calling 911. [facility] Other 11-07-2023 Evaluation note* Encounter Date Diagnosis Assessment Notes Treatment Notes Treatment Clinical Notes Mar, Lumbar degenerative disc disease (ICD-10 - M51.36) [facility] Other 10-19-2023 Evaluation note* Encounter Date Diagnosis Assessment Notes Treatment Notes Treatment Clinical Notes Feb, Anxiety disorder, unspecified (ICD-10 - F41.9) Chronic problem list refill Xanax. Patient states Xanax does completely resolve her symptoms reviewed OARRS report. Feb, Lumbar degenerative disc disease (ICD-10 - M51.36) We will request records from pain management at [place] as far as the MRI and upcoming treatment plan. Reviewed OARRS report. Discussed decreasing amount or frequency of oxycodone. Patient defers to have an upcoming MRI and plan of treatment through pain management. We will monitor further symptoms of overdosing carefully. Feb, Vitamin D deficiency (ICD-10 - E55.9) Lab order sent to [facility] per patient's request Feb, Iron deficiency anemia, unspecified iron deficiency anemia type (ICD-10 - D50.9) As above lab order sent to [facility]. Previously under the care of of Dr. Bañuelos at [facility] Feb, Medication management (ICD-10 - Z79.899) Monitor kidney and liver function based on her chronic medications. [facility] Other 09-21-2023 Evaluation note* Encounter Date Diagnosis Assessment Notes Treatment Notes Treatment Clinical Notes Jan, Anxiety disorder, unspecified (ICD-10 - F41.9) [facility] Other 09-07-2023 Evaluation note* Encounter Date Diagnosis Assessment Notes Treatment Notes Treatment Clinical Notes Jan, Lumbar degenerative disc disease (ICD-10 - M51.36) [facility] Other 08-24-2023 Evaluation note* Encounter Date Diagnosis Assessment Notes Treatment Notes Treatment Clinical Notes Dec, Anxiety disorder, unspecified (ICD-10 - F41.9) [facility] Other 08-08-2023 Evaluation note* Encounter Date Diagnosis Assessment Notes Treatment Notes Treatment Clinical Notes Dec, Lumbar degenerative disc disease (ICD-10 - M51.36) [facility] Other 07-14-2023 Evaluation note* Encounter Date Diagnosis Assessment Notes Treatment Notes Treatment Clinical Notes Nov, Lumbar degenerative disc disease (ICD-10 - M51.36) [facility] Other 06-14-2023 Evaluation note* Encounter Date Diagnosis Assessment Notes Treatment Notes Treatment Clinical Notes Oct, Lumbar degenerative disc disease (ICD-10 - M51.36) [facility] Other 04-27-2023 Evaluation note* Encounter Date Diagnosis Assessment Notes Treatment Notes Treatment Clinical Notes Aug, Left foot pain (ICD-10 - M79.672) Aug, Migraine without status migrainosus, not intractable, unspecified migraine type (ICD-10 - G43.909) Aug, Anxiety disorder, unspecified (ICD-10 - F41.9) Aug, Depression, unspecified (ICD-10 - F32.A) [facility] Other 04-18-2023 Evaluation note* Encounter Date Diagnosis Assessment Notes Treatment Notes Treatment Clinical Notes Aug, Lumbar degenerative disc disease (ICD-10 - M51.36) [facility] Other 03-07-2023 Evaluation note* Encounter Date Diagnosis [...] Pain in left leg (ICD-10 - M79.605) [facility] Other 03-07-2023 Evaluation note* Encounter Date Diagnosis [...] bandaid and further cushioning on L elbow. [facility] Other 06-16-2021 NoteHNO ID: [id number] Author: Ariana Matute APRN.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 Service: ? Author Type: Nurse Practitioner Type: Progress Notes Filed: 11/08/2020 3:37 PM Note Text: NAME: Candy Booth CLINIC NO.: [id number] DATE OF SERVICE: November 08, 2020 Referring Provider: Dr. Maureen Gilmore (Elements copied from note dated 10/11/2020 have [...] pill endoscopy. 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 She has primary complaints of fatigue but [...] as needed. sertraline ( (more content not included)...[facility]05-19-2021 NoteHNO ID: [id number] Author: Saritha Amaya MD Service: ? Author Type: Physician Type: Progress Notes Filed: 10/21/2020 6:59 PM Note Text: NAME: Candy Booth [facility] NO.: [id number] DATE OF SERVICE: October 11, 2020 Referring Provider: Maureen Gilmore Consultation requested by Dr. Gilmore for an opinion regarding Ms. Candy Booth, [...] pill endoscopy. 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 She has primary complaints of fatigue but [...] mg tablet Take 1 (more content not included)...[facility] No data available for this section General Surgery [place] Evaluation noteNo InformationNonorth [facility] Other Evaluation noteNonorth [facility] [employer] Other Evaluation note* Diagnosis Shortness of breath Essential hypertension Unspecified essential hypertension BMI 32.0-32.9,adult Smoker Tobacco use disorder Heart valve disease Endocarditis, valve unspecified, unspecified cause Dizziness Dizziness and giddiness Dilation of aorta (CMS/HCC) documented in this encounter [facility] Work Phone: Evaluation note* Diagnosis Shortness of breath Heart valve disease Endocarditis, valve unspecified, unspecified cause Dizziness Dizziness and giddiness Dilation of aorta (CMS/HCC) documented in this encounter [facility] Work Phone: Evaluation note* Diagnosis Angina pectoris, unstable (CMS/HCC)- Primary Intermediate coronary syndrome Dilation of aorta (CMS/HCC) Essential hypertension Unspecified essential hypertension Heart valve disease Endocarditis, valve unspecified, unspecified cause Shortness of breath Smoker Tobacco use disorder BMI 32.0-32.9,adult documented in this encounter [facility] Work Phone: Evaluation note* Diagnosis Essential hypertension Unspecified essential hypertension Shortness of breath Angina pectoris, unstable (CMS/HCC) Intermediate coronary syndrome documented in this encounter [facility] Work Phone: Evaluation note* Diagnosis Essential hypertension Unspecified essential hypertension Shortness of breath Angina pectoris, unstable (CMS/HCC) Intermediate coronary syndrome documented in this encounter [facility] Work Phone: Evaluation note* Diagnosis Onset Date Resolution Status Edema acute HTN (hypertension) acute [facility] Work Phone: Evaluation note* Diagnosis Onset Date Resolution Status Anxiety acute Chronic lumbar pain acute Edema acute HTN (hypertension) acute Lumbar degenerative disc disease acute Peripheral neuropathic pain acute Skin ulcer of elbow acute Anxiety acute Chronic pain syndrome acute Encounter for palliative care acute Peripheral neuropathic pain acute [facility] Work Phone: Evaluation note* Diagnosis Onset Date Resolution Status Anxiety acute Chronic lumbar pain acute Edema acute HTN (hypertension) acute Lumbar degenerative disc disease acute Peripheral neuropathic pain acute Skin ulcer of elbow acute Anxiety acute Chronic pain syndrome acute Encounter for palliative care acute Anxiety acute Chronic pain syndrome acute [facility] Work Phone: Evaluation note* Diagnosis Onset Date Resolution Status Anxiety acute Chronic lumbar pain acute Edema acute HTN (hypertension) acute Lumbar degenerative disc disease acute Peripheral neuropathic pain acute Skin ulcer of elbow acute Anxiety acute Chronic pain syndrome acute Encounter for palliative care acute Anxiety acute Chronic pain syndrome acute Chronic pain syndrome acute Peripheral neuropathic pain acute [facility] Work Phone: Evaluation note* Diagnosis Onset Date Resolution Status Anxiety acute Chronic pain syndrome acute Anxiety acute Chronic pain syndrome acute Depression acute Impaired mobility and ADLs a cute Peripheral neuropathic pain acute Anxiety acute Chronic pain syndrome acute Depression acute Peripheral neuropathic pain acute [facility] Work Phone: Evaluation note* Diagnosis Onset Date Resolution Status Anxiety acute Chronic pain syndrome acute Anxiety acute Chronic pain syndrome acute Depression acute Impaired mobility and ADLs a cute Peripheral neuropathic pain acute Anxiety acute Chronic pain syndrome acute [facility] Work Phone: Evaluation note* Diagnosis Onset Date Resolution Status Anxiety acute Chronic pain syndrome acute Acute parotitis acute Lumbar degenerative disc disease acute Peripheral neuropathic pain acute Anemia due to blood loss acu te [facility] Work Phone: Evaluation note* Diagnosis Onset Date Resolution Status Anxiety acute Chronic pain syndrome acute Acute parotitis acute Lumbar degenerative disc disease acute Peripheral neuropathic pain acute Anemia due to blood loss acu te Chronic gastrojejunal anastomotic ulcer acute Weakness acute [facility] Work Phone: Evaluation note* Diagnosis Onset Date Resolution Status Anxiety acute Chronic pain syndrome acute Acute parotitis acute Lumbar degenerative disc disease acute Peripheral neuropathic pain acute Anemia due to blood loss acu te Chronic gastrojejunal anastomotic ulcer acute Weakness acute Cellulitis of left foot acut e Left foot pain acute [facility] Work Phone: Evaluation note* Diagnosis Onset Date Resolution Status Anemia due to blood loss acu te Chronic gastrojejunal anastomotic ulcer acute Weakness acute Cellulitis of left foot acut e Left foot pain acute Anxiety acute Chronic pain syndrome acute Depression acute Left foot pain acute Anxiety acute Chronic pain syndrome acute [facility] Work Phone: Evaluation note* Diagnosis Pre-operative clearance Unspecified pre-operative examination Pre-op examination Heart valve disease Endocarditis, valve unspecified, unspecified cause Dilation of aorta (CMS-HCC) Essential hypertension Unspecified essential hypertension Smoker Tobacco use disorder documented in this encounter [facility] Work Phone: Evaluation note* Diagnosis Heart valve disease Endocarditis, valve unspecified, unspecified cause Dilation of aorta (CMS-HCC) Essential hypertension Unspecified essential hypertension BMI 32.0-32.9,adult Smoker Tobacco use disorder documented in this encounter [facility] Work Phone: Evaluation note* Diagnosis Lumbar stenosis with neurogenic claudication- Primary Spinal stenosis, lumbar region, with neurogenic claudication Hypokalemia Hypopotassemia Primary hypertension Unspecified essential hypertension documented in this encounter [facility] [employer] note* Diagnosis GI bleed- Primary Hemorrhage of [...] mention of obstruction documented in this encounter [employer] noteNo assessment information available [facility] Work Phone: History general Narrative [...] Surgical History diskectomy Hospitalization History see above [facility] Other History general Narrative - [facility] Other Hospital Discharge instructions No data available for this section [facility] [place] Progress note No data available for this section [facility] [place] Reason for referral (narrative)No reason [facility] referral [facility] Work [facility]: Reason for visit Narrativereferral for pain management / orthoNorth [facility] Other Summary Purpose Family History No Family [...] Documents on File Type Date Recorded 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 ACP-Advance Directive 10/19/2017 4:34 PM [...] score >30% Yossi Hunter MD [address] [facility], [address] [address] Referral ID Status Reason Start Date Expiration Date Visits Requested Visits Authorized [id number] Pending Review Perform Procedure 07/01/2023 06/30/2024 1 1 Reason *FU 07/07 Lumbar D DD and radiculopathy Diagnosis 1 Lumbar degenerative disc disease (M51.36) Referral Organization [facility] ricardo Referring Provider First Name Maureen Referring Provider Last Name Mando Referring Provider Specialty [facility] Referred Organization [facility] Referred Provider Darlene Gonzalez Referred Address ,[place], [place],[address] Referred Provider Specialty Orthopedic S urgery Referral Priority Routine General Notes Joselyn Zee 12:44:56 PM >received today, notes locked, attachments made, referral faxed Specialty Diagnoses / Procedures Referred By Contac t Referred To Contact Radiology Diagnoses Heart valve disease Dilation of aorta (CMS/HCC) Procedures CT chest wo IV contrast Yossi Hunter MD [address] [facility], [address] [address] Referral ID Status Reason Start Date Expiration Date Visits Requested Visits Authorized [id number] Pending Review Perform Procedure 05/27/2023 05/26/2024 1 1 Specialty Diagnoses / Procedures Referred By Contac t Referred To Contact Cardiology Diagnoses Shortness of breath Heart valve disease Dizziness Dilation of aorta (CMS/HCC) Procedures Transthoracic Echo (TTE) Complete CT ECHO TTHRC R-T 2D W/WOM-MODE COMPL SPEC&COLR D Yossi Hunter MD [address] [facility], [address] [address] Referral ID Status Reason Start Date Expiration Date Visits Requested Visits Authorized [id number] Pending Review Perform Procedure 05/27/2023 05/26/2024 1 1 Chief Complaint and Reason for Visit Chief Complaint Amb Documentation Amb Documentation Check Up Reason for Visit Edema HTN (hypertension) Chief Complaint Amb Documentation Amb Documentation Check Up at request of Dr. Gilmore Reason for Visit Anxiety Chronic lumbar pain Edema HTN (hypertension) Lumbar degenerative disc disease Peripheral neuropathic pain Skin ulcer of elbow Anxiety Chronic pain syndrome Encounter for palliative care Peripheral neuropathic pain Chief Complaint Amb Documentation Amb Documentation Check Up at request of Dr. Gilmore Patient here for a 1 week f/u Reason for Visit Anxiety Chronic lumbar pain Edema HTN (hypertension) Lumbar degenerative disc disease Peripheral neuropathic pain Skin ulcer of elbow Anxiety Chronic pain syndrome Encounter for palliative care Anxiety Chronic pain syndrome Chief Complaint Amb Documentation Amb Documentation Check Up at request of Dr. Gilmore Patient here for a 1 week f/u [...] Patient here for a f/u in office [facility] r 2023 3:27pm surgical clearance, Dr Vegas/Chrissy/cari omp/fusion April 08, 2024 2:57pm Reason for Visit Admit Date Anemia due to blood loss January 19 1:48pm Chronic gastrojejunal anastomotic ulcer January 20, 2024 1:48pm Weakness January 20, 2024 1: 48pm Cellulitis of left foot January 29, 024 11:15am Left foot pain January 30, 2024 11:15am Anxiety February 26, 2024 2: 56pm Chronic pain syndrome February 26, 2024 2:56pm Depression February 26, 2024 2: 56pm Left foot pain February 26, 2024 2: 56pm Anxiety March 30, 2024 3 :27pm Chronic pain syndrome March 30, 2024 3:27pm Chief Complaint Admit Date Patient here for a f/u in office [facility] r 2023 3:27pm surgical clearance, Dr Vegas/Chrissy/dec omp/fusion [...] April 08 2:57pm Lumbar degenerative disc disease [facility] r 2023 2:57pm Peripheral neuropathic pain March 2:57pm Preoperative examination April 08, 2024 2:57pm Dysuria April 29, 2024 3 :15pm Hyponatremia April 29, 2024 3 :15pm Chief Complaint Admit Date surgical clearance, Dr Vegas/Chrissy/cari omp/fusion April 08, 2024 2:57pm Discuss surgery/UA [...] 2 month f/u October 20, 2024 3:30pm retirement December 07, 2024 11:5 9pm Amb Documentation December 13, 2024 10:1 3am [facility] visit December 23, 2024 11:5 9pm F/u via Virtual January 11, 2025 4: 15pm Reason for Visit Admit Date Anxiety May 28th, 2025 3:30p m Chronic pain syndrome October 20, 2024 3:3 0pm Chief Complaint Admit Date Patient here for a 2 month f/u October 20, 2024 3:30pm retirement December 07, 2024 11:5 9pm Amb Documentation December 13, 2024 10:1 3am [facility] visit December 23, 2024 11:5 9pm F/u via Virtual January 11, 2025 4: 15pm Virtual: Phone Call to Discuss Meds Augu st 2024 2:02pm Chief Complaint Admit Date retirement December 07, 2024 11:5 9pm Amb Documentation December 13, 2024 10:1 3am [facility] visit December 23, 2024 11:5 9pm F/u via Virtual January 11, 2025 4: 15pm Virtual: Phone Call to Discuss Meds Augu st 2024 2:02pm Chief Complaint Admit Date retirement December 07, 2024 11:5 9pm Amb Documentation December 13, 2024 10:1 3am [facility] visit December 23, 2024 11:5 9pm F/u via Virtual January 11, 2025 4: 15pm Virtual: Phone Call to Discuss Meds Augu st 2024 2:02pm Heart Clot/GI Bleed January 25, 2025 5:04pm Heart Clot/GI Bleed February 01, 2025 12:00am Reason for Visit Admit Date Acute blood loss anemia January 25, 5:04pm Anemia January 25, 2025 5:04pm Chronic pulmonary embolism without acute cor pulmonale January 25, 2025 5:04pm Closed right ankle fracture January 5:04pm DVT (deep venous thrombosis) January 252024 5:04pm GI bleed January 25, 2025 5:04pm History of Linsey-en-Y gastric bypass Jan 5:04pm Impaired mobility and ADLs January 5:04pm Left foot pain January 25, 2025 5:04pm LV (left ventricular) mural thrombus Sep tember 2024 5:04pm Takotsubo cardiomyopathy January 25, 2025 5:04pm Additional Source Comments INFORMATION SOURCE (unrecogn ized section and content) DATE CREATED AUTHOR 03/09/2018 [facility] DATE CREATED AUTHOR AUTHOR'S ORGANIZ ATION 08/07/2021 [facility] DATE CREATED AUTHOR AUTHOR'S ORGANIZ ATION 08/17/2021 [facility] DATE CREATED AUTHOR AUTHOR'S ORGANIZ ATION 01/18/2022 [facility] DATE CREATED AUTHOR AUTHOR'S ORGANIZ ATION 04/05/2022 [facility] DATE CREATED AUTHOR AUTHOR'S ORGANIZ ATION 11/16/2023 [facility] DATE CREATED AUTHOR AUTHOR'S ORGANIZ ATION 01/13/2024 [facility] DATE CREATED AUTHOR AUTHOR'S ORGANIZ ATION 01/24/2024 [facility] DATE CREATED AUTHOR AUTHOR'S ORGANIZ ATION 02/15/2024 [facility] DATE CREATED AUTHOR AUTHOR'S ORGANIZ ATION 05/09/2024 [facility] DATE CREATED AUTHOR AUTHOR'S ORGANIZ ATION 06/17/2024 [facility] DATE CREATED AUTHOR AUTHOR'S ORGANIZ ATION 01/13/2025 [facility] DATE CREATED AUTHOR AUTHOR'S ORGANIZ ATION 01/22/2025 [facility] DATE CREATED AUTHOR AUTHOR'S ORGANIZ ATION 02/09/2025 [facility] Care Team (unrecognized sect ion and content) Team Status: Active Member Role Status Dates Maureen Gilmore MD Primary Care Provider Active Team Status: Active Member Role Status Dates Maureen Gilmore MD Primary Care Provider Active Start: November 30, 2024 Isha Holley MD Attending Provider Active Sta rt: November 30, 2024 Team Status: Active Member Role Status Dates Maureen Gilmore MD Primary Care Provider Active Start: December 01, 2024 Jackson Mondragon MD Attending Provider Active Sta rt: December 01, 2024 Team Status: Active Member Role Status Dates Maureen Gilmore MD Primary Care Provider Active Start: December 02, 2024 Jackson Mondragon MD Attending Provider Active Sta rt: December 02, 2024 Team Status: Active Member Role Status Dates Maureen Gilmore MD Primary Care Provider Active Start: December 03, 2024 Jackson Mondragon MD Attending Provider Active Sta rt: December 03, 2024 Team Status: Active Member Role Status Dates Maureen Gilmore MD Primary Care Provider Active Start: December 04, 2024 Jackson Mondragon MD Attending Provider Active Sta rt: December 04, 2024 Team Status: Active Member Role Status Dates Maureen Gilmore MD Primary Care Provider Active Start: December 05, 2024 Jackson Mondragon MD Attending Provider Active Sta rt: December 05, 2024 Team Status: Active Member Role Status Dates Maureen Gilmore MD Primary Care Provider Active Start: December 07, 2024 Maureen Gilmore MD Attending Provider Active St art: December 07, 2024 Team Status: Active Member Role Status Dates Maureen Gilmore MD Primary Care Provider Active Start: December 13, 2024 Alyssa Romo CMA Attending Provider Active St art: December 13, 2024 Team Status: Active Member Role Status Dates Maureen Gilmore MD Primary Care Provider Active Start: December 23, 2024 Maureen Gilmore MD Attending Provider Active St art: December 23, 2024 Team Status: Inactive Member Role Status Dates Maureen Gilmore MD Primary Care Provider Active Start: January 11, 2025 End: January 11, 2025 Thi Vidal APRN Attending Provider Active Start: January 11, 2025 End: January 11, 2025 Team Status: Inactive Member Role Status Dates Maureen Gilmore MD Primary Care Provider Active Start: January 18, 2025 End: January 18, 2025 Maureen Gilmore MD Attending Provider Active St art: January 18, 2025 End: January 18, 2025 Team Status: Active Member Role Status Dates Maureen Gilmore MD Primary Care Provider Active Start: January 22, 2025 Isha Holley MD Attending Provider Active Sta rt: January 22, 2025 Team Status: Active Member Role Status Dates Jackson Mondragon MD Attending Provider Active Sta rt: January 23, 2025 Team Status: Active Member Role Status Dates Jackson Mondragon MD Attending Provider Active Sta rt: January 24, 2025 Team Status: Active Member Role Status Dates Jackson Mondragon MD Attending Provider Active Sta rt: January 25, 2025 Team Status: Active Member Role Status Dates PHYSICIAN NO FAMILY Primary Care Provider Active Start: January 25, 2025 Camden Almodovar MD Admit Provider Active Start: S eptember 2024 Camden Almodovar MD Other Provider Active Start: S eptember 2024 Yessenia Heart RN Other Provider Active Star t: January 25, 2025 Jaimee Lim DO Other Provider Active Start : January 25, 2025 Srini Castillo MD Other Provider Active Start: January 25, 2025 Tatyana Ohara MD Other Provider Active St art: January 25, 2025 Divya Avalos APRN Other Provider Active Start : January 25, 2025 Ilda Marquez MD Other Provider Active Start: S eptember 2024 Katheryn Kearney , DATA ENTRY 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- Other Provider Active Sta rt: January 25, 2025 Jose M Valentine MD Other Provider Active Start : January 25, 2025 Zeyad El APRN Other Provider Active St art: January 25, 2025 Palmira Cope MD Attending Provider Active Start: January 25, 2025 Palmira Cope MD Other Provider Active Start: Jan tember 2024 Tiffany Guerra DO Other Provider Active Start: January 25, 2025 Denis Hadley APRN Other Provider Active Sta rt: January 25, 2025 Niya Ramires MD Other Provider Active Star t: January 25, 2025 Tanner Bynum DO Other Provider Active Start : January 25, 2025 Tony Contreras II, MD Other Provider Active S tart: January 25, 2025 Duglas Tracy DO Other Provider Active Start: January 25, 2025 Delma Souza LPN Other Provider Active Star t: January 25, 2025 Jayjay Robins MD Other Provider Active Start : January 25, 2025 Barbi Nelson NP-C Other Provider Active St art: January 25, 2025 Richard Granger MD Other Provider Active Start : January 25, 2025 Julio C Turner MD Other Provider Active Start: January 25, 2025 Juice Browne MD Other Provider Active Start: S eptember 2024 Martina Suarez MD Other Provider Active Start: Jan Lester Arora MD Attending Provider Activ e Start: January 25, 2025 Team Status: Active Member Role Status Dates Camden Almodovar MD Admit Provider Active Start: S eptember 2024 Camden Almodovar MD Other Provider Active Start: S eptember 2024 Yessenia Heart RN Other Provider Active Star t: February 01, 2025 Jaimee Lim DO Other Provider Active Start : February 01, 2025 Srini Castillo MD Other Provider Active Start: February 01, 2025 Tatyana Ohara MD Other Provider Active St art: February 01, 2025 Divya Avalos , DOMESTIC VIOLENCE ADVOCATE Other Provider Active Start : February 01, 2025 Ilda Marquez MD Other Provider Active Start: S eptember 2024 Katheryn Kearney , [facility] Other Provider Active Sta rt: February 01, 2025 Jose M Valentine MD Other Provider Active Start : February 01, 2025 Zeyad El , DOMESTIC VIOLENCE ADVOCATE Other Provider Active St art: February 01, 2025 Palmira Cope MD Other Provider Active Start: Jan Tiffany Guerra DO Other Provider Active Start: February 01, 2025 Denis Hadley APRN Other Provider Active Sta rt: February 01, 2025 Levy Velasquez MD Other Provider Active Start: S eptember 2024 Niya Ramires MD Other Provider Active Star t: February 01, 2025 Tanner Bynum DO Other Provider Active Start : February 01, 2025 Tony Contreras II, MD Other Provider Active S tart: February 01, 2025 Duglas Tracy DO Other Provider Active Start: February 01, 2025 Delma Souza LPN Other Provider Active Star t: February 01, 2025 Jayjay Robins MD Other Provider Active Start : February 01, 2025 ROSEY Piña Attending Provider Active Start: February 01, 2025 ROSEY Piña Other Provider Active St art: February 01, 2025 Richard Granger MD Other Provider Active Start : February 01, 2025 Julio C Turner MD Other Provider Active Start: February 01, 2025 Juice Browne MD Other Provider Active Start: [facility] Martina Suarez MD Other Provider Active Start: Jan Maureen Gilmore MD Primary Care Provider Active Start: February 01, 2025 Team Status: Inactive Member Role Status Dates Thi Vidal APRN Attending Provider Active Start: July 27, 2024 End: July 27, 2024 Maureen Gilmore MD Primary Care Provider Active Start: July 27, 2024 End: July 27, 2024 Team Status: Inactive Member Role Status Dates Maureen Gilmore MD Primary Care Provider Active Start: October 20, 2024 End: October 20, 2024 Thi Vidal APRN Attending Provider Active Start: October 20, 2024 End: October 20, 2024 Team Status: Active Member Role Status Dates PHYSICIAN NO FAMILY Primary Care Provider Active Team Status: Active Member Role Status Dates Maureen Gilmore MD Primary Care Provider Active Start: April 01, 2024 Ana Lilia Moreno PA-C Attending Provider Active Start: April 01, 2024 Team Status: Active Member Role Status Dates Maureen Gilmore MD Primary Care Provider Active Start: April 06, 2024 Grzegorz Wilkins DO Attending Provider Active Sta rt: April 06, 2024 Team Status: Inactive Member Role Status Dates Maureen Gilmore MD Primary Care Provide r, Attending Provider Active Start: April 08, 2024 End: April 08, 2024 Team Status: Inactive Member Role Status Dates Maureen Gilmore MD Primary Care Provide r, Attending Provider Active Start: April 29, 2024 End: April 29, 2024 Team Status: Inactive Member Role Status Dates Maureen Gilmore MD Attending Provider Active St art: April 29, 2024 End: April 29, 2024 Team Status: Active Member Role Status Dates Maureen Gilmore MD Attending Provider Active St art: May [...] Status: Inactive Member Role Status Dates Maureen Gilmore MD Primary Care Provider Active Start: March 30, 2024 End: March 30, 2024 Thi Vidal APRN Attending Provider Active Start: March 30, 2024 End: March 30, 2024 Team Status: Active Member Role Status Dates Maureen Gilmore MD Primary Care Provider Active Start: January 06, 2024 Jayjay Oscar DO Attending Provider Active S tart: January 06, 2024 Team Status: Active Member Role Status Dates Maureen Gilmore MD Primary Care Provider Active Start: January 06, 2024 Grzegorz Wilkins DO Attending Provider Active Sta rt: January 06, 2024 Team Status: Active Member Role Status Dates Maureen Gilmore MD Primary Care Provider Active Start: January 12, 2024 Isha Holley MD Attending Provider Active Sta rt: January 12, 2024 Team Status: Inactive Member Role Status Lyndsey Gilmore MD Primary Care Provide r, Attending Provider Active Start: January 20, 2024 End: January 20, 2024 Team Status: Active Member Role Status Lyndsey Gilmore MD Primary Care Provider Active Start: January 20, 2024 Grzegorz Wilkins DO Attending Provider Active Sta rt: January 20, 2024 Team Status: Inactive Member Role Status Lyndsey Gilmore MD Primary Care Provide r, Attending Provider Active Start: January 30, 2024 End: January 30, 2024 Team Status: Active Member Role Status Lyndsey Gilmore MD Primary Care Provide r, Attending Provider Active Start: February 26, 2024 Team Status: Inactive Member Role Status Lyndsey Gilmore MD Primary Care Provide r, Attending Provider Active Start: February 26, 2024 End: February 26, 2024 Team Status: Inactive Member Role Status Lyndsey Gilmore MD Primary Care Provider Active Start: December 11, 2023 End: December 11, 2023 Thi Vidal APRN Attending Provider Active Start: December 11, 2023 End: December 11, 2023 Team Status: Inactive Member Role Status Lyndsey Gilmore MD Primary Care Provide r, Attending Provider Active Start: December 18, 2023 End: December 18, 2023 Team Status: Active Member Role Status Dates Maureen Gilmore MD Primary Care Provider Active Start: December 28, 2023 Damaris Coffey DO Attending Provider Active Sta rt: December 28, 2023 Team Status: Active Member Role Status Dates Maureen Gilmore MD Primary Care Provider Active Start: December 28, 2023 End: December 30, 2023 Grzegorz Wilkins DO Attending Provider Active Sta rt: December 28, 2023 End: December 30, 2023 Team Status: Active Member Role Status Dates Maureen Gilmore MD Primary Care Provider Active Start: December 29, 2023 Shaikh Ana Paula MD Attending Provider Active Sta rt: December 29, 2023 Team Status: Active Member Role Status Dates Maureen Gilmore MD Primary Care Provider Active Start: December 30, 2023 Shaikh Ana Paula MD Attending Provider Active Sta rt: December 30, 2023 Team Status: Active Member Role Status Dates Maureen Gilmore MD Primary Care Provider Active Start: November 10, 2023 Chong Gutierrez Attending Provider Active Start: November 10, 2023 Team Status: Active Member Role Status Dates Maureen Gilmore MD Primary Care Provider Active Start: November 10, 2023 Grzegorz Wilkins DO Attending Provider Active Sta rt: November 10, 2023 Team Status: Inactive Member Role Status Dates Maureen Gilmore MD Primary Care Provider Active Start: September 22, 2023 End: September 22, 2023 Thi Vidal APRN Attending Provider Active Start: September 22, 2023 End: September 22, 2023 Team Status: Inactive Member Role Status Dates Maureen Gilmore MD Primary Care Provider Active Start: October 14, 2023 End: October 14, 2023 Thi Vidal APRN Attending Provider Active Start: October 14, 2023 End: October 14, 2023 Beater Lead Relationship Specialty Start Date End Date Maureen Gilmore MD [address] [place] [address] PCP - General Family Medicine 05/27/23 Beater Lead Relationship Specialty Start Date End Date Maureen Gilmore MD [address] [place] [address] PCP - General Family Medicine 05/27/23 Beater Lead Relationship Specialty Start Date End Date Maureen Gilmore MD [address] [place] [address] PCP - General Family Medicine 05/27/23 Yossi Hunter MD [address] [facility], [facility] [address] [place] [address] Doctor Of Nurse Anesthesia Practice Cardiology 06/17/23 Beater Lead Relationship Specialty Start Date End Date Maureen Gilmore MD [address] [place] [address] PCP - General Family Medicine 05/27/23 Yossi Hunter MD [address] [facility], [facility] [address] [place] [address] Doctor Of Nurse Anesthesia Practice Cardiology 06/17/23 Beater Lead Relationship Specialty Start Date End Date Maureen Gilmore MD [address] [place] [address] PCP - General Family Medicine 05/27/23 Yossi Hunter MD [address] [facility], [facility] [address] [place] [address] Doctor Of Nurse Anesthesia Practice Cardiology 06/17/23 Team Status: Active Member Role Status Dates Maureen Gilmore MD Primary Care Provider Active Start: July 23, 2023 ELMER Sanchez Attending Provider Active Start : July 23, 2023 Team Status: Inactive Member Role Status Dates Maureen Gilmore MD Primary Care Provide r, Attending Provider Active Start: August 26, 2023 End: August 26, 2023 Team Status: Active Member Role Status Dates Maureen Gilmore MD Primary Care Provide r, Attending Provider Active Start: September 03, 2023 Team Status: Inactive Member Role Status Dates Maureen Gilmore MD Primary Care Provider Active Start: September 12, 2023 End: September 12, 2023 Thi Vidal APRN Attending Provider Active Start: September 12, 2023 End: September 12, 2023 Beater Lead Relationship Specialty Start Date End Date Maureen Gilmore MD [address] [place] [address] PCP - General Family Medicine 05/27/23 Yossi Hunter MD [address] [facility], [facility] [address] [place] [address] Doctor Of Nurse Anesthesia Practice Cardiology 06/17/23 Beater Lead Relationship Specialty Start Date End Date Maureen Gilmore MD [address] [place] [address] PCP - General Family Medicine 05/27/23 Yossi Hunter MD [address] [facility], [facility] [address] [place] [address] Doctor Of Nurse Anesthesia Practice Cardiology 06/17/23 Beater Lead Relationship Specialty Start Date End Date Maureen Gilmore MD PCP - General Family Medicine 10/18/17 Beater Lead Relationship Specialty Start Date End Date Maureen Gilmore MD PCP - General Family Medicine 10/18/17 Beater Lead Relationship Specialty Start Date End Date Maureen Gilmore MD PCP - General Family Medicine 10/22/23 Beater Lead Relationship Specialty Start Date End Date Maureen Gilmore MD PCP - General Family Medicine 10/22/23 REASON FOR VISIT (unrecogniz ed section and content) Reason Comments New Patient Visit Specialty Diagnoses / Procedures Referred By Norberto abernathy Referred To Contact Cardiology Diagnoses Shortness of breath Heart valve disease Dizziness Dilation of aorta (CMS/HCC) Procedures Transthoracic Echo (TTE) Complete CT ECHO TTHRC R-T 2D W/WOM-MODE COMPL SPEC&COLR D Yossi Hunter MD [address] [facility], [address] [address] Referral ID Status Reason Start Date Expiration Date Visits Requested Visits Authorized [id number] Authorized Perform Procedure 05/27/2023 05/26/2024 1 1 Reason Comments Patient here for follow up Echo Specialty Diagnoses / Procedures Referred By Norberto abernathy Referred To Contact Radiology Diagnoses Essential hypertension Shortness of breath Angina pectoris, unstable (CMS/HCC) Procedures CT angio coronary art with heartflow if score >30% Yossi Hunter MD [address] [facility], [address] [address] Referral ID Status Reason Start Date Expiration Date Visits Requested Visits Authorized [id number] Authorized Perform Procedure 07/01/2023 06/30/2024 1 1 Reason Comments Pre-op Clearance POC to have lumbar s urgery on 04/21/[address] Jovana Guardado in [facility] Specialty Diagnoses / Procedures Referred By Nroberto abernathy Referred To Contact Diagnoses Pre-operative clearance Procedures ECG 12 lead (Clinic Performed) Yossi Hunter MD [address] [facility], [address] [address] Phone: tel: fax: Referral ID Status Reason Start Date Expiration Date V isits Requested Visits Authorized [id number] Authorized 04/07/2024 04/07/2025 1 1 Reason Comments Pre-op Clearance POC to have lumbar s urgery on pending with Dr. 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] Procedures CT ARTHRODESIS POSTERIOR/PSTLAT TQ 1NTRSPC LUMBAR CT KU FACETECTOMY&FORAMOT 1 VRT SGM EA ADDL SGM CT KU FACETECTOMY & FORAMOTOMY [address] POSTERIOR NON-SEGMENTAL INSTRUMENTATION CT AUTOGRAFT SPINE SURGERY LOCAL FROM SAME INCISION L4-L5 REVISION DECOMPRESSION WITH FUSION L4-L5 REVISION DECOMPRESSION WITH FUSION L4-L5 REVISION DECOMPRESSION WITH FUSION L4-L5 REVISION DECOMPRESSION WITH FUSION L4-L5 REVISION DECOMPRESSION WITH FUSION Jovana Holloway MD [address] [place] [address] [place] [address] [facility] [address] [place] [address] Referral ID Status Reason Start Date Expiration Date Visits Re quested Visits Authorized [id number] 1 1 Specialty Diagnoses / Procedures Referred By Norberto t Referred To Contact Diagnoses GI bleed GI Bleed, [facility] Suzanne Pretty MD [address] [place] [id number] [facility] [address] [place] [address] Referral ID Status Reason Start Date Expiration Date Visits Re quested Visits Authorized [id number] 1 1 Goals (unrecognized section and content) [...] Patterson RN)1349 (Given - Provider: Conchita Patterson RN)2119 (Given - Provider: Luba Caldwell [...] Genevieve Jones, RN)2138 (Given - Provider: Luba Caldwell, RN) 1023 (Given - Provider: Genevieve Jones, RN)2100 (Due) Continuous Medication Order 06/09/2024 06/10/2024 [...] Alyssa Lantigua RN)1512 (Given - Provider: Conchita Patterson, RN)2123 (Given - Provider: Luba Caldwell RN) 0305 (Given - Provider: Luba Caldwell RN)0842 (Given - Provider: Genevieve Jones RN)1254 (Given - Provider: Genevieve Jones, RN)1749 (Given - Provider: Genevieve Jones, RN)2137 (Given - Provider: Luba Caldwell RN) 0137 (Given - Provider: Luba Caldwell RN)0616 (Given - Provider: Luba Caldwell RN)1022 (Given - Provider: Genevieve Jones, TIFFANIE)1453 (Given - Provider: Genevieev Jones RN) bisacodyl (DULCOLAX) suppository 10 mg [...] Alyssa Lantigua RN)0914 (Given - Provider: Conchita Patterson, RN) naloxone (NARCAN) injection 0.4 mg 0.4 [...] or Central Line = 20 mL/lumen, Post-op 0914 (Given - Provider: Conchita Patterson RN) Linked [...] Zepeda, TIFFANIE) 0820 (Given - Provider: Sissy Hardy RN) carvedilol (COREG) tablet 6.25 mg 6.25 mg, [...] 1,000 mcg, IntraMUSCular, ONCE, 1 dose, On Corinne 01/01/24 at 1815 labetalol (NORMODYNE;TRANDATE) injection 10 mg [...] least 2 minutes. 2005 (Given - Provider: Tim Dejesus RN) 0834 (Given - Provider: Ana [...] RN)2042 (Given - Provider: Diane Eng RN) 0820 (Given - Provider: Sissy Hardy RN)1305 (Given - Provider: Sissy Hardy, RN)2004 (Given - Provider: Tim Dejesus RN) 0828 (Given - Provider: Ana Malone RN)1432 (Given - Provider: Ana Malone RN)1999 (Due) sertraline (ZOLOFT) tablet 200 mg 200 mg, Oral, Nightly, First dose on Fri12/30/23 at 2345, Until Discontinued 2042 (Given - Provider: Diane Eng RN) 2004 (Given - Provider: Tim Dejesus RN) 2099 (Due) sodium chloride flush [...] RN)2043 (Given - Provider: Diane Eng RN) 08 (Given - Provider: Sissy Hardy, RN)2008 (Given - Provider: Tim Dejesus, TIFFANIE) 08 (Given - Provider: Ana Malone, TIFFANIE)2100 (Due) sucralfate (CARAFATE) tablet 1 g 1 [...] for dose)2042 (Given - Provider: Diane Eng RN)2227 (Given - Provider: Diane Eng RN) 0553 (Given - Provider: Diane Eng RN)1305 (Given - Provider: Sissy Hardy, RN)2226 (Given - Provider: Flaco Stevenson RN) 0846 (Given - Provider: Ana Malone, RN)1432 (Given - Provider: Ana Malone, TIFFANIE)220 (Due) Continuous Medication Order 01/03/2024 01/04/2024 01/05/2024 0.9 % sodium chloride infusion IntraVENous, at 50 mL/hr, CONTINUOUS, Starting on Fri12/30/23 at 1845 0727 (Rate/Dose Change - Provider: Dasha Brady RN)0729 (Rate/Dose Change - Provider: Dasha Brady RN)0730 (Stopped - Provider: Dasha Brady RN)0730 (New Bag - Provider: Lamar Zepeda, RN)0731 (Rate/Dose Verify - Provider: Dasha Brady RN)1141 (Rate/Dose Change - Provider: Lamar Zepeda, RN)2058 (Rate/Dose Verify - Provider: Diane Eng [...] 0959 (New Bag - Provider: Ana Malone, RN)1813 (Stopped - Provider: Ana Malone, RN) pantoprazole (PROTONIX) 80 mg in sodium chloride 0.9 % 100 mL infusion () 8 mg/hr (10 mL/hr), IntraVENous, CONTINUOUS, Starting on Corinne 01/01/24 at 1015, Until 01/04/24 at 1014 0257 (Rate/Dose Verify - Provider: Dasha Brady RN)0258 (Rate/Dose Verify - Provider: Dasha Brady RN)0258 (Stopped - Provider: Dasha Brady RN)0258 (New Bag - Provider: Dasha Brady RN)0730 (Rate/Dose Verify - Provider: Dasha Brady RN)0731 (Rate/Dose Verify - Provider: Dasha Brady RN)1110 (Paused - Provider: Diane Eng RN)1117 (Restarted - Provider: Diane Eng RN)1309 (Rate/Dose Verify - Provider: Diane Eng RN)1309 (Rate/Dose Verify - Provider: Diane Eng RN)1351 (Rate/Dose Verify - Provider: Diane Eng RN)1351 (Rate/Dose Verify - Provider: Diane Eng RN)1400 (Stopped - Provider: iDane Eng RN)1400 (New Bag - Provider: Lamar Zepeda RN)1400 (Rate/Dose Verify - Provider: Diane Eng RN)203 (Rate/Dose Verify - Provider: Diane Eng RN)205 (Rate/Dose Verify - Provider: Diane Eng RN)222 [...] RN)2043 (Given - Provider: Diane Eng RN) 0628 (Given - Provider: Diane Eng RN)1139 (Given - Provider: Sissy Hardy, TIFFANIE)2008 (Given - Provider: Tim Dejesus, TIFFANIE) benzonatate (TESSALON) capsule 200 mg 200 mg, Oral, 3 TIMES DAILY PRN, Starting on Fri12/31/23 at 0631, Until Discontinued, Cough guaiFENesin (MUCINEX) extended release tablet 600 mg 600 mg, Oral, 2 TIMES DAILY PRN, Starting on Fri12/31/23 at 0631, Until Discontinued, Congestion, Cough, Do not crush or break. 06 (Given - Provider: Diane Eng, TIFFANIE) hydrALAZINE (APRESOLINE) injection 20 mg 20 mg, IntraVENous, EVERY 4 HOURS PRN, Starting on Fri12/30/23 at 2329, Until Discontinued, High Blood Pressure, SBP > 150 113 (Given - Provider: Lamra Zepeda RN) 399 (Given - Provider: Diane [...] Nausea, Vomiting 0415 (Given - Provider: Diane Eng, TIFFANIE) oxyCODONE (ROXICODONE) immediate release tablet 15 mg(Linked Group 2) 15 mg, Oral, EVERY 4 HOURS PRN, Starting on Fri12/30/23 at 2326, Until Discontinued, Pain Moderate (4-6) 1515 (Given - Provider: Rebecca Diaz, TIFFANIE) oxyCODONE (ROXICODONE) immediate release tablet 20 mg(Linked [...] RN)0755 (See Alternative - Provider: Lamar Zepeda, RN) 0621 (See Alternative - Provider: Diane Eng RN) 1000 (See Alternative - Provider: Ana Malone RN)1116 (See Alternative - Provider: Ana Malone, TIFFANIE)1214 (See Alternative - Provider: Ana Malone, TIFFANIE)1301 (See Alternative - Provider: Ana Malone, TIFFANIE)1431 (See Alternative - Provider: Ana Malone, TIFFANIE)1540 (See Alternative - Provider: Ana Malone, TIFFANIE) potassium chloride 10 mEq/100 mL IVPB (Peripheral [...] Ana Malone RN)1301 (New Bag - Provider: Coranne Malone, RN)1431 (New Bag - Provider: Ana Malone [...] = 20 mL/lumen 2009 (Given - Provider: Tim Dejesus RN) SUMAtriptan (IMITREX) tablet 100 mg [...] BE BASED ON THE PRIMARY CLINICAL RECORDS. [employer] provides no warranty or guarantee of the accuracy or completeness of information in this document.
[2025-02-17 18:33] LABS: Glucose Urine UA NEGATIVE (NEGATIVE)
[2025-02-17 18:45] LABS: Cast Seen? NONE SEEN #/LPF (NONE SEEN); Crystals Seen? None Seen #/HPF (None Seen)
[2025-02-17 18:46] LABS: Urine Culture Indicated YES-FRMC
[2025-02-18] MEDS: ACETAMINOPHEN 325 MG TABLET 650 MG PO (00:07)
[2025-02-18 00:13] VITALS: BP 110/78; PULSE 136; TEMP 37.8; O2SAT 95
[2025-02-18 11:18] LABS: A. calcoaceticus-baumannii Cpx NOT DETECTED (NOT DETECTE); Bacteroides fragilis NOT DETECTED (NOT DETECTE); Candida auris NOT DETECTED (NOT DETECTE); Candida glabrata NOT DETECTED (NOT DETECTE); Enterobacterales NOT DETECTED (NOT DETECTE); Enterococcus faecalis NOT DETECTED (NOT DETECTE); Enterococcus faecium NOT DETECTED (NOT DETECTE); Klebsiella aerogenes NOT DETECTED (NOT DETECTE); Klebsiella pneumoniae group NOT DETECTED (NOT DETECTE); Proteus spp. NOT DETECTED (NOT DETECTE); Salmonella spp. NOT DETECTED (NOT DETECTE); Serratia marcescens NOT DETECTED (NOT DETECTE); Staphylococcus epidermidis NOT DETECTED (NOT DETECTE); Staphylococcus lugdunensis NOT DETECTED (NOT DETECTE); Stenotrophomonas maltophilia NOT DETECTED (NOT DETECTE); Streptococcus pyogenes NOT DETECTED (NOT DETECTE); Streptococcus spp. NOT DETECTED (NOT DETECTE)
[2025-02-18 12:29] LABS: Source BLOOD; Staphylococcus spp. DETECTED (NOT DETECTE)
== END 2025-02-18 00:37 | disposition short-term general hospital (02) ==
PROVIDERS: Emergency Medicine; Emergency Provider Internal Medicine; PCP Family Medicine
DX: N39.0 Urinary tract infection, site not specified (principal); Z87.440 Personal history of urinary (tract) infections; Z87.891 Personal history of nicotine dependence
CPT/HCPCS: 36415; 71045; 80048; 81001; 83605; 84484; 85025; 87040; 87045; 87046; 87086; 87088; 87150; 87186; 87427; 87493; 87804; 87811; 93005; 96361; 96365; 99285; J0696

== ENCOUNTER 2025-03-12 11:30 | Emergency (ER) | payer BC, MEDICARE, SELFPAY ==
--- OUTSIDE RECORDS SUMMARY | 2024-04-21 09:30 | XMS_ITS ---
Author Organization [facility] Address [address] [place] [address] Care Team Providers Care Track Manager Name Role Phone Kymberly Gilmore M.D. Primary Care Provider Unavail able Jovana Holloway Unavailable [phone] Cat BURKETT, Andrius Unavailable Unavailab le REASON FOR VISIT L4-5 REVISION DECOMPRESSION WITH FUSION, 04/21/24, IOS Encounters Encounter Location Date Provider Diagnosis IOS - Inpatient [address] [place] [id number] 04/21/2024 Jovana Holloway Plan Of Treatment No Information Progress Notes * RASHID BOOTHDOB:[birth year] (54 yo F)Acc No.[id number]:04/21/2024 Patient: Jaimee PALENCIARASHID Provider: Tom Guardado MD, PhD :1970 A ge:53 Y S ex:Female Date:04/21/2024 Address:[address] , [id number] Pcp:Kymberly Gilmore M.D. * Images: * Electronic signature of Camryn Holloway MD, PHD on 03/12/2025 at 11:37 AM EDT Sign off status: Pending * Provider: Tom Guardado MD, PhD Date: 06/21/2023 Generated for Jay baron/Devorah/eTransmitting on: 11:37 AM EDT
--- OUTSIDE RECORDS SUMMARY | 2024-06-11 07:40 | XMS_ITS ---
Author Organization [facility] Address [address] [place] [address] Care Team Providers Care Director Of Occupational Health Name Role Phone Kymberly Gilmore M.D. Primary Care Provider Unavail able Jovana Holloway Unavailable [phone] Cat BURKETT, Andrius Unavailable Unavailab le REASON FOR VISIT L4-5 REVISION DECOMPRESSION WITH FUSION, 04/21/24, IOS Encounters Encounter Location Date Provider Diagnosis [facility] [address] [place] [address] [place] [address] 06/11/2024 Jovana Holloway Plan Of Treatment No Information Progress Notes * RASHID BOOTHDOB:[birth year] (54 yo F)Acc No.[id number]:06/11/2024 Progress Notes Patient: Jaimee PALENCIARASHID Provider: Tom Guardado MD, PhD :1970 A ge:53 Y S ex:Female Date:06/11/2024 Address:[address] , [id number] Pcp:Kymberly Gilmore M.D. Subjective: * Chief Complaints: * 1 . L4-5 REVISION DECOMPRESSION WITH FUSION, 04/21/24, IOS. * Medical History: Objective: * Vitals: Assessment: Plan: * Treatment: Forms: * Images: * Electronic signature of Camryn Holloway MD, PHD on 03/12/2025 at 11:36 AM EDT Sign off status: Pending * Provider: Tom Guardado MD, PhD Date: 0 06/11/2024 Generated for Jay baron/Devorah/Marva on: 1 11:36 AM EDT
--- OUTSIDE RECORDS SUMMARY | 2024-07-30 07:30 | XMS_ITS ---
Author Organization [facility] Address [address] [place] [address] Care Team Providers Care Shoemaking Finisher Name Role Phone Kymberly Gilmore M.D. Primary Care Provider Unavail able Jewel, Shalalorri Unavailable [phone] Cat BURKETT, Andri Unavailable Unavailab le REASON FOR VISIT L4-5 REVISION DECOMPRESSION WITH FUSION, [facility], 06/08/24 Medications Medication SIG (Take, Route, Fr equency, Duration) Notes Start Date End Date Status Flexeril 10 mg 1 tab(s) orally 3 ti mes a day prn muscle spasms 04/19/2024 Active None Active ALPRAZolam Active pregabalin Active sertraline Active amitriptyline Active oxyCODONE Active Vitamin D3 Active eletriptan Active ondansetron Active Encounters Encounter Location Date Provider Diagnosis [facility] Office [address] [place] [address] [place] [address] 07/30/2024 Shalalorri Jewel Aftercare following surgery of the musculoskeletal system Z47.89 Assessments Encounter Date Diagnosis (ICD Code) Assessment Notes Treatment Notes Treatment Clinical Notes Section Notes 07/30/2024 Aftercare following surgery of the musculoskeletal system (ICD-10 - Z47.89) Plan Of Treatment Pending Test Test Name Order Date Lumbar spine 2v ap and lat - [id number] 07/30 Progress Notes * RASHID BOOTHDOB:[birth year] (54 yo F)Acc No.[id number]:07/30/2024 Progress Notes Patient: RASHID LOUIS Provider: Tom Guardado MD, PhD :1970 A ge:53 Y S ex:Female Date:07/30/2024 Address:[address] , [id number] Pcp:Kymberly Gilmore M.D. Subjective: * Chief Complaints: * 1 . L4-5 REVISION DECOMPRESSION WITH FUSION, [facility], 06/08/24. * Medical History: * Surgical History: [...] Provider: Tom Guardado MD, PhD Date: 0 07/30/2024 Generated for Jay baron/Devorah/eTroxysmitting on: 1 11:37 AM EDT
--- OUTSIDE RECORDS SUMMARY | 2024-09-24 06:40 | XMS_ITS ---
Author Organization [facility] Address [address] [place] [address] Care Team Providers Care Inspector Hairspring Truing Name Role Phone Kymberly Gilmore M.D. Primary Care Provider Unavail able Jovana Holloway Unavailable [phone] Cat BURKETT, Andrius Unavailable Unavailab le REASON FOR VISIT LUMBAR RECHECK Medications Medication SIG (Take, Route, Fr equency, Duration) Notes Start Date End Date Status Vitamin D3 Active amitriptyline Active ALPRAZolam Active None Active Flexeril 10 mg 1 tab(s) orally 3 ti mes a day prn muscle spasms 04/19/2024 Active sertraline Active pregabalin Active oxyCODONE Active ondansetron Active eletriptan Active Encounters Encounter Location Date Provider Diagnosis [facility] Office [address] [place] [address] [place] [address] 09/24/2024 Jovana Holloway Plan Of Treatment Pending Test Test Name Order Date Lumbar spine 2v ap and lat - [id number] 09/24 Progress Notes * RASHID BOOTHDOB:[birth year] (54 yo F)Acc No.[id number]:09/24/2024 Patient: Jaimee KAMALASVENRASHID Provider: Tom Guardado MD, PhD :1970 A ge:53 Y S ex:Female Date:09/24/2024 Address:[address] [place] , [id number] Pcp:Kymberly Gilmore M.D. Subjective: * Chief Complaints: * 1 . LUMBAR RECHECK. * Medical History: * Medications: T aking sertraline , Taking pregabalin , Taking oxyCODONE , Taking ondansetron , Taking eletriptan , Taking Vitamin D3 , Taking amitriptyline , Taking ALPRAZolam , Taking None , Taking Flexeril 10 mg tablet 1 tab(s) orally 3 times a day prn muscle spasms Objective: * Vitals: Assessment: Plan: * Treatment: Forms: * Images: * Electronic signature of Camryn Holloway MD, PHD on 03/12/2025 at 11:36 AM EDT Sign off status: Pending * Provider: Tom Guardado MD, PhD Date: 0 09/24/2024 Generated for Jay baron/Devorah/Marva on: 1 11:36 AM EDT
--- OUTSIDE RECORDS SUMMARY | 2024-12-16 09:30 | XMS_ITS ---
Author Organization [facility] Address [address] [address], [place] [address] Care Team Providers Care Route Rider Name Role Phone Mando BURKETT, Kymberly Primary Care Provider Unavailab Black Varma Unavailable [phone] REASON FOR VISIT Right Ankle Pain Encounters Encounter Location Date Provider Diagnosis [facility] [place], [facility] [address] [address], [place] [address] 12/16/2024 Black Weeks Plan Of Treatment No Information Progress Notes * Candy BOOTHDOB:[birth year] (54 yo F)Acc No.[id number]:12/16/2024 New Patient Patient: Jaimee restrepo Candy Acuña Provider: Jasmina Weeks DPM :1970 A ge:54 Y S ex:Female Date:12/16/2024 Address:[address] , [id number] Pcp:Kymberly Gilmore MD Subjective: * Chief Complaints: * R ight Ankle Pain Billing Information: * Procedure Codes: * Electronic signature of Paras Weeks DPM MS on 03/12/2025 at 11:36 AM EDT Sign off status: Pending * Provider: Jasmina Weeks DPM Date: 12/16/2024 Generated for Jay baron/Devorah/eTransmitting on: 1 11:36 AM EDT
--- OUTSIDE RECORDS SUMMARY | 2025-03-08 12:17 | XMS_ITS | Continuity of Care Document ---
Author Organization [facility] Address [address] [place] [address] Phone Care Team Providers Care Business Services Coordinator Name Role Phone Kymberly Gilmore MD Primary Care Provider Alyssa Romo CMA Attending Provider Unavailabl e Kymberly Gilmore MD Attending Provider Thi Vidal APRN Attending Provider Isha Holley MD Attending Provider Jackson Mondragon MD Attending Provider [phone] NO FAMILY, PHYSICIAN Primary Care Provider Unava ilable Camden Almodovar MD Admit Provider Camden Almodovar MD Other Provider Yessenia Heart RN Other Provider Unavailable Jaimee Lim DO Other Provider Srini Castillo MD Other Provider Tatyana Ohara MD Other Provider Divya Tai APRN Other Provider Ilda Marquez MD Other Provider Katheryn Kearney HAND WASHER-BC Other Provider [phone] Jose M Valentine MD Other Provider Zeyad El APRN Other Provider Palmira Cope MD Attending Provider Palmira Cope MD Other Provider Tiffany Guerra DO Other Provider Denis Hadley Cm TRUCK DRIVER TEAMSTER Other Provider Levy Velasquez MD Other Provider Niya Ramires MD Other Provider Tanner Bynum DO Other Provider Tony Contreras II, MD Other Provider Duglas Tracy DO Other Provider Delma Souza LPN Other Provider Unavailable Jayjay Robins MD Other Provider Barbi Fisher BUZZLE BUFFER-C Attending Provider Barbi Fisher BUZZLE BUFFER-C Other Provider Priya Granger MD Other Provider Julio C Turner MD Other Provider Juice Browne MD Other Provider Martina Suarez MD Other Provider Tiffany Egan CMA Attending Provider Unavaila ble Jayjay Oscar DO Attending Provider Ruiz Bettencourt DO Admit Provider Cookie Terry MD Other Provider Kenneth Greenberg MD Attending Provider Kenneth Greenberg MD Other Provider Care Teams Patient Care Team Team Status: Active Member Role Status Dates Kymberly Gilmore MD Primary Care Provider Active Visit Care Team Team Status: Active Member Role Status Dates Kymberly Gilmore MD Primary Care Provider Active Start: December 13, 2024 Alyssa Romo CMA Attending Provider Active St art: December 13, 2024 Visit Care Team Team Status: Active Member Role Status Dates Kymberly Gilmore MD Primary Care Provider Active Start: December 23, 2024 Kymberly Gilmore MD Attending Provider Active St art: December 23, 2024 Visit Care Team Team Status: Inactive Member Role Status Dates Kymberly Gilmore MD Primary Care Provider Active Start: January 11, 2025 End: January 11, 2025 Thi Vidal APRN Attending Provider Active Start: January 11, 2025 End: January 11, 2025 Visit Care Team Team Status: Inactive Member Role Status Dates Kymberly Gilmore MD Primary Care Provider Active Start: January 18, 2025 End: January 18, 2025 Kymberly Gilmore MD Attending Provider Active St art: January 18, 2025 End: January 18, 2025 Visit Care Team Team Status: Active Member Role Status Dates Kymberly Gilmore MD Primary Care Provider Active Start: January 22, 2025 Isha Holley MD Attending Provider Active Sta rt: January 22, 2025 Visit Care Team Team Status: Active Member Role Status Dates Jackson Mondragon MD Attending Provider Active Sta rt: January 23, 2025 Visit Care Team Team Status: Active Member Role Status Dates Jackson Mondragon MD Attending Provider Active Sta rt: January 24, 2025 Visit Care Team Team Status: Active Member Role Status Dates Jackson Mondragon MD Attending Provider Active Sta rt: January 25, 2025 Visit Care Team Team Status: Active Member Role Status Dates PHYSICIAN NO FAMILY Primary Care Provider Active Start: January 25, 2025 Camden Almodovar MD Admit Provider Active Start: Tom sims 2024 Camden Almodovar MD Other Provider Active Start: S levi 2024 Yessenia Heart RN Other Provider Active Star t: January 25, 2025 Yessenia Heart RN Other Provider Active Star t: January 25, 2025 Jaimee Lim DO Other Provider Active Start : January 25, 2025 Srini Castillo MD Other Provider Active Start: January 25, 2025 Tatyana Ohara MD Other Provider Active St art: January 25, 2025 Divya Tai APRN Other Provider Active Start : January 25, 2025 Ilda Marquez MD Other Provider Active Start: S eptember 2024 Katheryn Kearney , HAND WASHER- Other Provider Active Sta rt: January 25, 2025 Jose M Valentine MD Other Provider Active Start : January 25, 2025 Zeyad El APRN Other Provider Active St art: January 25, 2025 Palmira Cope MD Attending Provider Active Start: January 25, 2025 Palmira Cope MD Other Provider Active Start: Sep tember 2024 Tiffany Guerra , DO Other Provider Active Start: January 25, [...] Active Start : January 25, 2025 Barbi Fisher NP-C Other Provider Active S tart: January 25, 2025 Priya Granger MD Other Provider Active Start : January 25, 2025 Julio C Turner MD Other Provider Active Start: January 25, 2025 Juice Browne MD Other Provider Active Start: S eptember 2024 Martina Suarez MD Other Provider Active Start: Jan Lester Arora MD Attending Provider Activ e Start: January 25, 2025 Visit Care Team Team Status: Active Member Role Status Dates Camden Almodovar MD Admit Provider Active Start: S eptember 2024 Camden Almodovar MD Other Provider Active Start: S eptember 2024 Yessenia Heart RN Other Provider Active Star t: February 01, 2025 Yessenia Heart RN Other Provider Active Star t: February 01, 2025 Jaimee Lim DO Other Provider Active Start : February 01, 2025 Srini Castillo MD Other Provider Active Start: February 01, 2025 Tatyana Ohara MD Other Provider Active St art: February 01, 2025 Divya Tai TRUCK DRIVER TEAMSTER Other Provider Active Start : February 01, 2025 Ilda Marquez MD Other Provider Active Start: S eptember 2024 Katheryn Kearney , [facility]- Other Provider Active Sta rt: February 01, 2025 Jose M Valentine MD Other Provider Active Start : February 01, 2025 Zeyad El APRN Other Provider Active St art: February 01, 2025 Palmira Cope MD Other Provider Active Start: Jan Tiffany Guerra DO Other Provider Active Start: February 01, 2025 Denis Hadley APRN Other Provider Active Sta rt: February 01, 2025 Levy Velasquez MD Other Provider Active Start: S epteer 2024 Niya Ramires MD Other Provider Active [...] Provider Active Start : February 01, 2025 JEREMI PosadaC Attending Provider Active Start: February 01, 2025 ROSEY Posada Other Provider Active S tart: February 01, 2025 Priya Granger MD Other Provider Active Start : February 01, 2025 Julio C Turner MD Other Provider Active Start: February 01, 2025 Juice Browne MD Other Provider Active Start: S eptember 2024 Martina Suarez MD Other Provider Active Start: Jan Kymberly Gilmore MD Primary Care Provider Active Start: February 01, 2025 Visit Care Team Team Status: Active Member Role Status Dates Kymberly Gilmore MD Primary Care Provider Active Start: February 02, 2025 Tiffany Egan CMA Attending Provider Active Start: February 02, 2025 Visit Care Team Team Status: Active Member Role Status Dates Kymberly Gilmore MD Primary Care Provider Active Start: February 17, 2025 Jayjay Oscar DO Attending Provider Active S tart: February 17, 2025 Visit Care Team Team Status: Inactive Member Role Status Dates Kymberly Gilmore MD Primary Care Provider Active Start: February 17, 2025 End: February 17, 2025 Jayjay Oscar DO Attending Provider Active S tart: February 17, 2025 End: February 17, 2025 Visit Care Team Team Status: Active Member Role Status Dates Kymberly Gilmore MD Primary Care Provider Active Start: February 18, 2025 Ruiz Bettencourt DO Admit Provider Active Start: February 18, 2025 Cookie Terry MD Other Provider Active Start: 2024 Kenneth Greenberg MD Attending Provider Active Sta rt: February 18, 2025 Kenneth Greenberg MD Other Provider Active Start: February 18, 2025 Visit Care Team Team Status: Active Member Role Status Dates Kymberly Gilmore MD Primary Care Provider Active Start: February 28, 2025 Tiffany Egan CMA Attending Provider Active Start: February 28, 2025 Visit Care Team Team Status: Inactive Member Role Status Dates Kymberly Gilmore MD Primary Care Provider Active Start: March 08, 2025 End: March 08, 2025 Kymberly Gilmore MD Attending Provider Active St art: March 08, 2025 End: March 08, 2025 Patient Care Team Team Status: Inactive Member Role Status Dates Kymberly Gilmore MD Primary Care Provider Active Start: March 08, 2025 End: March 08, 2025 Thi Vidal APRN Attending Provider Active Start: March 08, 2025 End: March 08, 2025 Chief Complaint and Reason for Visit Chief Complaint Admit Date Amb Documentation December 13, 2024 10:1 3am senior living visit December 23, 2024 11:5 9pm F/u via Virtual January 11, 2025 4: 15pm Virtual: Phone Call to Discuss Meds Augu st 2024 2:02pm Heart Clot/GI Bleed January 25, 2025 5:04pm Heart Clot/GI Bleed February 01, 2025 12:00am Amb Documentation February 02, 2025 9:05am Unknown February 17, 2025 6:10pm Urospesis February 18, 2025 1:27am Amb Documentation February 28, 2025 8: 22am VIRTUAL:hosp f/u [phone] March 082024 1:23pm f/u via phone March 08, 2025 4 :02pm Reason for Visit Admit Date Acute blood loss anemia January 25 5:04pm Anemia January 25, 2025 5:04pm Chronic pulmonary embolism without acute cor pulmonale January 25, 2025 5:04pm Closed right ankle fracture January 5:04pm DVT (deep venous thrombosis) January 252024 5:04pm GI bleed January 25, 2025 5:04pm History of Linsey-en-Y gastric bypass Jan 5:04pm Impaired mobility and ADLs January 5:04pm Left foot pain January 25, 2025 5:04pm LV (left ventricular) mural thrombus Sep 2024 5:04pm Takotsubo cardiomyopathy January 25, 2025 5:04pm Catheter-associated urinary tract infect ion February 18, 2025 1:27am Chronic pulmonary embolism without acute cor pulmonale February 18, 2025 1:27am DVT (deep venous thrombosis) January 252024 1:27am History of Linsey-en-Y gastric bypass Jan 1:27am 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 February 18, 2025 1:27am [facility] Sepsis February 18, 2025 1:27am Takotsubo cardiomyopathy February 18, 2025 1:27am UTI (urinary tract infection) February 18, 2025 1:27am Reason for Referral Referring Provider Name Referring Provider Address Referring Provider Phone Referral Date Requested Appointment Date Referral Reason Imanikaron Scooby [address] [facility] [address] Work Phone: Imanikaron Scooby [address] [facility] [address] Work Phone: Imanikaron Scooby [address] [facility] [address] Work Phone: Imanikaron Scooby [address] [facility] [address] Work Phone: Ruiz Bettencourt [address] [place], [place] [address]ists Stefania ORTIZ [id number] Work Phone: You have b een scheduled for a follow up appointment for the following date and time, please call to reschedule if needed. This appointment will be with Dr. Alvarado. You have b een scheduled for a follow up appointment for the following date and time, please call to reschedule if needed. You have b een scheduled for a follow up appointment for the following date and time, please call to reschedule if needed. The office will call with your pathology results. If you have any questions, please call the office. You have b een scheduled for a follow up appointment for the following date and time, please call to reschedule if needed. Allergies, Adverse Reactions, Alerts Allergen Type Severity Reaction Last Updated Verified Status acetaminophen Allergy Unknown decreased respirations while sleeping March 08, 2025 8:21am Yes Active codeine Allergy Unknown decreased respirations while sleeping March 08, 2025 8:21am Yes Active NSAIDS (Non-Steroidal Anti-Inflamma Allergy Unknown bleeding March 08, 2025 8:21am Yes Active Sulfa (Sulfonamide Antibiotics) Allergy Unknown Hives March 08, 2025 8:21am Yes Active venlafaxine Allergy Unknown Hives March 08, 2025 8:21am Yes Active Social History Smoking Status Status Start Date End Date Date of Observa tion Current some day smoker 2024 9:17am Observation Status Observation Response Date of Response Legal Sex Female (finding) Sex Assigned At Female 1970 Social History Assessments Assessment Value Date Recorded SDOH Follow up January 27 4:19pm Question Answer Date Recorded Has the SDOH screening changed since admission? N January 27, 2025 4:19pm Assessment Value Date Recorded SDOH Follow up February 23 5:00pm Question Answer Date Recorded Has the SDOH screening changed since admission? N February 23, 2025 5:00pm Family History Relationship Condition Age at Onset Recorded Date/T suzie father Hypertension Unknown Heart disease Unknown Malignant neoplasm Unknown Diabetes mellitus Unknown Unknown mother Diabetes mellitus Unknown Malignant neoplasm Unknown Hypertension Unknown Problems Active Problems Medical Problem Onset Date Status History of Linsey-en-Y gastric bypass Unknown Active Acute parotitis Unknown Active Skin ulcer of elbow Unknown Active LV (left ventricular) mural thrombus Unknown Active UTI (urinary tract infection) Unknown Ac tive Chronic pulmonary embolism without acute cor pul monale Unknown Active Impaired mobility and ADLs Unknown Activ e Chronic gastrojejunal anastomotic ulcer Unknown Active Catheter-associated urinary tract infection Unkn own Active Chronic lumbar pain Unknown Active GI bleed Unknown Active DVT (deep venous thrombosis) Unknown Act vega Infection due to ESBL-producing Escherichia coli Unknown Active Anemia Unknown Active Anxiety Unknown Active Depression Unknown Active Dysuria Unknown Active Edema Unknown Active Hyponatremia Unknown Active Peripheral neuropathic pain Unknown Acti ve Takotsubo cardiomyopathy Unknown Active Anemia due to blood loss Unknown Active Preoperative examination Unknown Active Lumbar degenerative disc disease Unknown Active Weakness Unknown Active Sepsis Unknown Active Left foot pain Unknown Active Chronic pain syndrome Unknown Active Acute blood loss anemia Unknown Active Encounter for palliative care Unknown Ac tive HTN (hypertension) Unknown Active Cellulitis of left foot Unknown Active Closed right ankle fracture Unknown Acti ve Hypokalemia Unknown Active Medications Medication Status Dose Units Route Directions Qty Days St art Date Stop Date End Date Instructions Adherence Alprazolam 0.5 mg tablet Discont inued 0.5 MG PO Every 4 hours as needed for anxiety 180 2023 3:22pm September 22, 2023 5:33p m Pregabalin 200 mg capsule Discont inued 200 MG PO Three times daily 90 September 02, 2023 8:49am October 03, 2023 9:14a m Oxycodone 20 mg tablet Discont inued 20 MG PO Every 6 hours as needed for pain 28 September 09, 2023 September 15, 2023 4:42p m Amitriptyli ne 100 mg tablet Discont inued 0 .ROUTE .COMPLEX September 22, 2023 5:36pm October 14, 2023 4:47p m TAKE 1 TABLET BY MOUTH AT BEDTIME Cholecalcif tomás (Vitamin D3) 1,250 mcg (50,000 unit) capsule Discont inued 1250 MCG PO Twice a Week September 23, 2023 11:41a m Septe mb 2024 1:57p m Pregabalin 200 mg capsule Discont inued 200 MG PO Three times daily 90 October 03, 2023 9:13am November 26, 2023 2:21p m Oxycodone 20 mg tablet Discont inued 20 MG PO Every 4 hours as needed for pain 90 October 03, 2023 October 14, 2023 4:51p m Alprazolam 0.5 mg tablet Discont inued 0 PO Every 4 hours as needed for anxiety 75 October 03, 2023 9:13am October 24, 2023 1:41p m alternate 1 tab and 0.5 tab every 4h as needed, not to exceed 5 tabs/day Alprazolam 0.5 mg tablet Discont inued 0 PO Every 4 hours as needed for anxiety 75 October 24, 2023 1:41pm November 10, 2023 5:30p m alternate 1 tab and 0.5 tab every 4h as needed, not to exceed 5 tabs/day Oxycodone 20 mg tablet Discont inued 20 MG PO Every 4 hours as needed for pain 90 November 06, 2023 November 24, 2023 10:30 am Alprazolam 0.5 mg tablet Discont inued 0 PO Every 4 hours as needed for anxiety 75 November 10, 2023 5:30pm November 26, 2023 2:21p m alternate 1 tab and 0.5 tab every 4h as needed, not to exceed 5 tabs/day Amitriptyli ne 75 mg tablet Discont inued 75 MG PO Daily at bedtime November 14, 2023 2:38pm December 11, 2023 4:45p m Oxycodone 20 mg tablet Discont inued 20 MG PO Every 4 hours as needed for pain 90 November 24, 2023 December 08, 2023 3:02p m Pregabalin 200 mg capsule Discont inued 200 MG PO Three times daily November 26, 2023 2:21pm Septe 2023 11:38 am Alprazolam 0.5 mg tablet Discont inued 0 PO Every 4 hours as needed for anxiety 75 November 26, 2023 2:21pm December 11, 2023 4:45p m alternate 1 tab and 0.5 tab every 4h as needed, not to exceed 5 tabs/day Oxycodone 20 mg tablet Discont inued 20 MG PO Every 4 hours as needed for pain 18 December 08, 2023 December 11, 2023 4:45p m Sertraline 100 mg tablet Discont inued 0 .ROUTE .COMPLEX 180 December 09, 2023 3:49pm [facility] t 2023 2:06p m TAKE 2 TABLETS BY MOUTH ONCE DAILY Oxycodone 20 mg tablet Discont inued 20 MG PO Every 4 hours as needed for pain 90 December 29, 2023Dec t 2023 8:26a m Oxycodone 20 mg tablet Discont inued 20 MG PO Every 4 hours as needed for pain 90 January 12, 2024 [facility] 2023 4:25p m Alprazolam 0.5 mg tablet Discont inued 0 PO Every 4 hours as needed for anxiety 75 January 12, 2024 8:26am [facility] t 2023 5:07p m alternate 1 tab and 0.5 tab every 4h as needed, not to exceed 5 tabs/day Alprazolam 0.5 mg tablet Discont inued 0.5 MG PO Four times daily as needed for anxiety 40 January 13, 2024 5:06pm [facility] 2023 4:21p m Alprazolam 0.5 mg tablet Discont inued 0.5 MG PO Four times daily as needed for anxiety 40 January 21, 2024 4:21pm [facility] 2023 4:25p m Amitriptyli ne 75 mg tablet Discont inued 75 MG PO Daily at bedtime January 21, 2024 4:21pm [facility] 2023 2:07p m Pregabalin 200 mg capsule Discont inued 200 MG PO Three times daily 90 2023 11:38a m [facility] 2023 9:09a m Oxycodone 20 mg tablet Discont inued 20 MG PO Every 4 hours as needed for pain 90 2023 Octob er 2023 3:42p m Amitriptyli ne 75 mg tablet Discont inued 75 MG PO Daily at bedtime 2023 2:06pm Octob er 2023 11:56 am Eletriptan 40 mg tablet Discont inued 40 MG PO . NEEDED 2023 7:36am Octob er 2023 10:57 am Eletriptan 40 mg tablet Discont inued 40 MG PO Every 2 hours as needed for migraine headache 10 Octobe r 2023 10:56a m Augus t 2024 10:24 am no more than 2/day Oxycodone 20 mg tablet Discont inued 20 MG PO Every 4 hours as needed for pain 90 15 Octobe r 2023 Octob er 2023 11:56 am Alprazolam 0.5 mg tablet Discont inued 0.5 MG PO Four times daily as needed for anxiety 60 15 Octobe r 2023 3:42pm Novem juline 2023 1:19p m Amitriptyli ne 75 mg tablet Discont inued 75 MG PO Daily at bedtime Febobe r 2023 11:56a m julien 2023 4:35p m Oxycodone 20 mg tablet Discont inued 20 MG PO Every 4 hours as needed for pain 90 15 Octobe r 2023 julien 2023 1:19p m Alprazolam 0.5 mg tablet Discont inued 0.5 MG PO Four times daily as needed for anxiety 60 7 Novemb er 2023 1:18pm julien 2023 4:35p m Oxycodone 20 mg tablet Discont inued 20 MG PO Every 4 hours as needed for pain 42 7 Novemb er 2023 julien 2023 10:07 am Oxycodone 20 mg tablet Discont inued 20 MG PO Every 4 hours as needed for pain 42 7 Novemb er 2023 julien 2023 10:31 am Oxycodone 20 mg tablet Discont inued 20 MG PO Every 4 hours as needed for pain 90 15 Novemb er 2023 julien 2023 11:56 am Oxycodone 20 mg tablet Discont inued 20 MG PO Every 4 hours as needed for pain 90 15 Novemb er 2023 julien 2023 5:58p m Pregabalin 200 mg capsule Discont inued 200 MG PO Three times daily 90 30 Novemb er 2023 9:08am Tori ry 2024 10:43 am Amitriptyli ne 75 mg tablet Discont inued 75 MG PO Daily at bedtime 30 Novemb er 2023 4:35pm Dece julien 2023 3:59p m Alprazolam 0.5 mg tablet Discont inued 0.5 MG PO Four times daily as needed for anxiety 60 7 Novemb er 2023 4:35pm Novem julien 2023 5:36p m Alprazolam 0.5 mg tablet Discont inued 0.5 MG PO Four times daily as needed for anxiety 60 15 Novemb er 2023 5:35pm Novem julien 2023 5:58p m Alprazolam 0.5 mg tablet Discont inued 0.5 MG PO Four times daily as needed for anxiety 60 15 Novemb er 2023 5:57pm Dece julien 2023 3:59p m Oxycodone 20 mg tablet Discont inued 20 MG PO Every 4 hours as needed for pain 90 15 Novemb er 2023 Dece julien 2023 3:59p m Ciprofloxac in Hcl 250 mg tablet Discont inued 250 MG PO Twice daily 10 Dece er 2023 1:00am July 27, 2024 5:12p m Alprazolam 0.5 mg tablet Discont inued 0.5 MG PO Four times daily as needed for anxiety 60 15 Dece er 2023 3:59pm [facility] julien 2023 4:16p m Amitriptyli ne 75 mg tablet Discont inued 75 MG PO Daily at bedtime 30 Dece er 2023 3:59pm [facility] julien 2023 4:16p m Oxycodone 20 mg tablet Discont inued 20 MG PO Every 4 hours as needed for pain 90 15 Decemb er 2023 Dece julien 2023 4:16p m Amitriptyli ne 75 mg tablet Discont inued 75 MG PO Daily at bedtime 30 Dece er 2023 4:16pm Janua ry 2024 5:27p m Oxycodone 20 mg tablet Discont inued 20 MG PO Every 4 hours as needed for pain 90 15 Dece er 2023ua 2024 10:43 am Alprazolam 0.5 mg tablet Discont inued 0.5 MG PO Four times daily as needed for anxiety 60 15 Decemb er 2023 4:16pm 2024 10:43 am Sertraline 100 mg tablet Discont inued 0 .ROUTE .COMPLEX 60 Decemb er 2023 10:41a m September 03, 2024 8:35a m TAKE 2 TABLETS BY MOUTH DAILY Oxycodone 20 mg tablet Discont inued 20 MG PO Every 4 hours as needed for pain 90 2024 4:41p m Amitriptyli ne 75 mg tablet Discont inued 75 MG PO Daily at bedtime 2024 5:27pm 2024 3:03p m Alprazolam 0.5 mg tablet Discont inued 0.5 MG PO Four times daily as needed for anxiety 60 2024 3:02pm August 02, 2024 2:51p m Amitriptyli ne 75 mg tablet Discont inued 75 MG PO Daily at bedtime 2024 3:02pm August 02, 2024 2:51p m Oxycodone 20 mg tablet Discont inued 20 MG PO Every 4 hours as needed for pain 90 2024August 02, 2024 2:51p m Pregabalin 200 mg capsule Discont inued 200 MG PO Three times daily 2024 9:40am September 21, 2024 8:56a m Alprazolam 0.5 mg tablet Discont inued 0.5 MG PO Four times daily as needed for anxiety 60 August 02, 2024 2:50pm September 01, 2024 9:34a m Amitriptyli ne 75 mg tablet Discont inued 75 MG PO Daily at bedtime August 02, 2024 2:50pm September 21, 2024 8:56a m Oxycodone 20 mg tablet Discont inued 20 MG PO Every 4 hours as needed for pain 90 August 02, 2024 August 18, 2024 4:28p m Oxycodone 20 mg tablet Discont inued 20 MG PO Every 4 hours as needed for pain 90 August 18, 2024 September 01, 2024 9:34a m Alprazolam 0.5 mg tablet Discont inued 0.5 MG PO Four times daily as needed for anxiety 60 September 01, 2024 9:33am 2024 11:26 am Oxycodone 20 mg tablet Discont inued 20 MG PO Every 4 hours as needed for pain 90 September 01, 2024 September 21, 2024 8:56a m Sertraline 100 mg tablet Active 0 .ROUTE .COMPLEX 60 September 03, 2024 8:35am TAKE 2 TABLETS BY MOUTH DAILY Unknown Amitriptyli ne 75 mg tablet Discont inued 75 MG PO Daily at bedtime September 21, 2024 8:56am October 20, 2024 4:31p m Oxycodone 20 mg tablet Discont inued 20 MG PO Every 4 hours as needed for pain 90 September 21, 2024 2024 11:26 am Pregabalin 200 mg capsule Discont inued 200 MG PO Three times daily 90 September 21, 2024 8:56am December 08, 2024 8:26a m Alprazolam 0.5 mg tablet Discont inued 0.5 MG PO Four times daily as needed for anxiety 60 2024 11:26a m October 20, 2024 4:31p m Oxycodone 20 mg tablet Discont inued 20 MG PO Every 4 hours as needed for pain 90 2024 October 20, 2024 4:31p m Oxycodone 20 mg tablet Discont inued 20 MG PO Every 4 hours as needed for pain 90 November 11, 2024 November 29, 2024 2:44p m Oxycodone 20 mg tablet Discont inued 20 MG PO Every 4 hours as needed for pain 90 November 29, 2024 December 08, 2024 8:26a m Amitriptyli ne 75 mg tablet Discont inued 75 MG PO Daily at bedtime November 29, 2024 2:44pm Augus t 2024 4:20p m Oxycodone 10 mg tablet Discont inued 10 MG PO Q6H as needed for pain 28 December 08, 2024 December 13, 2024 10:18 am Pregabalin 50 mg capsule Discont inued 50 MG PO Twice daily 14 December 08, 2024 8:24am December 20, 2024 9:50a m Alprazolam 0.5 mg tablet Discont inued 0.5 MG PO Twice daily as needed for anxiety 06 12December 08, 2024 8:25am December 22, 2024 8:24a m Oxycodone 10 mg tablet Discont inued 10 MG PO Every 6 hours as needed for pain 20 12December 16, 2024 December 22, 2024 8:24a m Pregabalin 50 mg capsule Discont inued 50 MG PO Twice daily December 20, 2024 9:50am Augus t 2024 12:49 pm Alprazolam 0.5 mg tablet Discont inued 0.5 MG PO Twice daily as needed for anxiety 06 12December 22, 2024 8:24am Augus t 2024 12:45 pm Oxycodone 10 mg tablet Discont inued 10 MG PO Every 6 hours as needed for pain 20 12December 22, 2024 Augus t 2024 12:45 pm Eletriptan 40 mg tablet Active 40 MG PO Every 2 hours as needed for migraine headache 03 24December 25, 2024 10:23a m no more than 2/day Unknown Pregabalin 100 mg capsule Discont inued 100 MG PO Twice daily December 27, 2024 12:49p m Augus t 2024 12:45 pm Alprazolam 0.5 mg tablet Discont inued 0.5 MG PO Twice daily as needed for anxiety 14 03January 06, 2025 4:33pm Augus t 2024 4:20p m Pregabalin 50 mg capsule Discont inued 50 MG PO Twice daily 14 03January 06, 2025 12:00a m Augus t 2024 4:20p m Potassium Chloride (Klor-Con M20) 20 mEq tablet,ER particles/c rystals Active 20 MEQ PO Daily January 13, 2025 12:00a m Unknown Alprazolam 0.5 mg tablet Discont inued 0.5 MG PO Twice daily as needed for anxiety 40 January 18, 2025 4:17pm Septe [facility] 2024 4:15p m Amitriptyli ne 75 mg tablet Active 75 MG PO Daily at bedtime January 18, 2025 4:18pm Unknown Oxycodone 10 mg tablet Discont inued 10 MG PO EVERY 4-6 HOURS as needed for pain 75 January 18, 2025 Octob er 2024 9:33a m Pregabalin 50 mg capsule Discont inued 50 MG PO Every 8 hours 60 January 18, 2025 4:19pm Septe mber 2024 11:19 am Alprazolam 0.5 mg tablet Discont inued 0.5 MG PO Twice daily as needed for anxiety 30 15 Janem julien 2024 4:15pm Octob er 2024 1:22p m Pregabalin 50 mg capsule Discont inued 50 MG PO Every 8 hours 60 2024 11:19a m Octob er 2024 3:57p m Alprazolam 0.5 mg tablet Discont inued 0.5 MG PO Twice daily as needed for anxiety 30 Febobe r 2024 1:22pm Octob er 2024 3:58p m Alprazolam 0.5 mg tablet Discont inued 0.5 MG PO Every 4 hours as needed for anxiety December 30, 2024 12:00a m Augus t 2024 4:34p m Pregabalin 100 mg capsule Discont inued 200 MG PO Three times daily December 30, 2024 12:00a m Augus t 2024 4:34p m Oxycodone 10 mg tablet Discont inued 10 MG PO EVERY 4-6 HOURS as needed for pain December 30, 2024 12:00a m Augus t 2024 4:21p m Spironolact one 25 mg Tablet Active 12.5 MG PO Daily 15 julien 2024 12:00a m Unknown Carvedilol 3.125 mg Tablet Active 3.125 MG PO Twice daily with meals 60 2024 12:00a m Unknown Enoxaparin (Lovenox) 40 mg/0.4 mL Syringe Active 40 MG SUBCUT DAILY@1000 4 30 julien 2024 12:00a m Unknown Valsartan 40 mg Tablet Active 40 MG PO Daily 30 2024 12:00a m Unknown Pantoprazol e 40 mg tablet,clifford yed release (DR/EC) Active 40 MG PO Daily 30 30 2024 12:00a m Unknown Cholecalcif tomás (Vitamin D3) 1,250 mcg (50,000 unit) capsule Discont inued 1250 MCG PO Twice a Week 2023 1:00am 2023 9:40a m Cholecalcif tomás (Vitamin D3) 1,250 mcg (50,000 unit) capsule Discont inued 1250 MCG PO Twice a Week 2023 9:40am September 23, 2023 11:41 am Oxycodone 30 mg tablet Discont inued 30 MG PO Every 4 hours August 07, 2023 12:00a m August 07, 2023 12:44 pm Oxycodone 30 mg tablet Discont inued 30 MG PO Every 4 hours 180 30 August 07, 2023 September 09, 2023 12:17 pm Metoprolol Succinate 25 mg tablet extended release 24 hr Discont inued 25 MG PO September 12, 2023 12:00a m Augus t 2023 2:05p m Oxycodone 20 mg tablet Discont inued 20 MG PO Every 6 hours as needed for pain 28 September 15, 2023 September 22, 2023 5:33p m Clindamycin Hcl 150 mg capsule Discont inued 150 MG PO Three times daily December 18, 2023 12:00a m Augus t 2023 2:06p m Cephalexin 500 mg capsule Discont inued 500 MG PO Twice daily 14 7 2023 12:00a m Octob er 2023 3:08p m Metoprolol Succinate 50 mg tablet extended release 24 hr Discont inued 50 MG PO daily October 20, 2024 12:00a m December 13, 2024 10:19 am Alprazolam 0.5 mg tablet Discont inued 0.5 MG PO Four times daily as needed for anxiety 60 15 October 20, 2024 4:26pm December 08, 2024 8:27a m Amitriptyli ne 75 mg tablet Discont inued 75 MG PO Daily at bedtime October 20, 2024 4:26pm November 29, 2024 2:44p m Oxycodone 20 mg tablet Discont inued 20 MG PO Every 4 hours as needed for pain 90 15 October 20, 2024 November 11, 2024 4:08p m Metoprolol Succinate 50 mg tablet extended release 24 hr Discont inued 25 MG PO Twice daily December 13, 2024 10:16a m Septe mber 2024 1:57p m Alprazolam 0.5 mg tablet Discont inued 0.5 MG PO Four times daily 2023 1:00am u 2023 2:08p m Pregabalin 200 mg capsule Discont inued 200 MG PO Three times daily 2023 1:00am u 2023 2:08p m Alprazolam 0.5 mg tablet Discont inued 0.5 MG PO Every 4 hours as needed for anxiety 180 2023 2:06pm 2023 3:22p m Pregabalin 200 mg capsule Discont inued 200 MG PO Three times daily 90 2023 2:07pm September 02, 2023 8:50a m Eletriptan 40 mg tablet Discont inued 1 TAB PO . NEEDED August 19, 2023 12:00a m November 10, 2023 4:40p m FreeTextSi tablet Orally as needed; Note: Source Status: Taking; Refills: 1; Qty: 20 Tablet; Provider: Mando Morales Amitriptyli ne 100 mg tablet Discont inued 1 TAB PO Daily at bedtime August 19, 2023 12:00a m September 22, 2023 5:36p m FreeTextSig: TAKE 1 TABLET BY MOUTH AT BEDTIME; Note: Source Status: Taking; Refills: 3; Qty: 30 Tablet; Provider: Mando Traylor ( ) Sertraline (Zoloft) 100 mg tablet Discont inued 100 MG PO Daily August 19, 2023 12:00a m December 09, 2023 3:49p m FreeTextSi tablets Orally Once a day; Note: Source Status: Taking; Refills: 1; Qty: 180 Tablet; Provider: Mando Morales Oxycodone 20 mg tablet Discont inued 20 MG PO Every 4 hours as needed for pain 90 September 22, 2023 October 03, 2023 9:15a m Alprazolam 0.5 mg tablet Discont inued 0 PO Every 4 hours as needed for anxiety 75 September 22, 2023 5:30pm October 03, 2023 9:15a m alternate 1 tab and 0.5 tab every 4h as needed, not to exceed 5 tabs/day Amitriptyli ne 75 mg tablet Discont inued 75 MG PO Daily at bedtime October 14, 2023 12:00a m November 10, 2023 3:39p m Ondansetron 4 mg tablet,disi ntegrating Discont inued 4 MG PO Every 12 hours as needed for nausea and vomiting October 14, 2023 12:00a m November 10, 2023 3:39p m Oxycodone 20 mg tablet Discont inued 20 MG PO Every 4 hours as needed for pain 90 October 14, 2023 November 06, 2023 4:36p m Alprazolam 0.5 mg tablet Discont inued 0 PO Every 4 hours as needed for anxiety 75 December 11, 2023 4:43pm 2023 8:26a m alternate 1 tab and 0.5 tab every 4h as needed, not to exceed 5 tabs/day Amitriptyli ne 75 mg tablet Discont inued 75 MG PO Daily at bedtime December 11, 2023 4:43pm Augus 2023 4:21p m Oxycodone 20 mg tablet Discont inued 20 MG PO Every 4 hours as needed for pain 90 December 11, 20232023 8:42a m Amitriptyli ne 75 mg tablet Discont inued 75 MG PO Daily at bedtime November 10, 2023 3:38pm November 14, 2023 2:38p m Ondansetron 4 mg tablet,disi ntegrating Active 4 MG PO Every 12 hours as needed for nausea and vomiting 30 November 10, 2023 3:39pm Unknown Eletriptan 40 mg tablet Discont inued 40 MG PO . NEEDED November 10, 2023 4:40pm Septe mber 2023 7:36a m Pantoprazol e 40 mg tablet,clifford yed release (DR/EC) Discont inued MG PO January 20, 2024 12:00a m Octob er 2023 3:08p m Carvedilol 6.25 mg tablet Discont inued 6.25 MG PO Twice daily January 20, 2024 12:00a m Octob er 2023 3:08p m Sertraline 100 mg tablet Discont inued 100 MG PO Daily January 20, 2024 2:03pm Octob er 2023 3:11p m Sucralfate 1 gram tablet Discont inued 1 GM PO .every 8 hours January 20, 2024 12:00a m Octob er 2023 3:10p m Sertraline 100 mg tablet Discont inued 200 MG PO Three times daily Octobe r 2023 3:10pm Octob er 2023 3:27p m Alprazolam 0.5 mg tablet Discont inued 0.5 MG PO Four times daily as needed for anxiety 60 15 Septem julien 2023 4:25pm Octob er 2023 3:42p m Oxycodone 20 mg tablet Discont inued 20 MG PO Every 4 hours as needed for pain 90 15 Septem julien 2023 Septvarun er 2023 10:10 am Sertraline 100 mg tablet Discont inued 200 MG PO Daily 60 Octobe r 2023 3:27pm Decem julien 2023 10:41 am Alprazolam 0.5 mg tablet Discont inued 0.5 MG PO Four times daily as needed for anxiety 60 15 Mayuar y 2024 10:42a m Janua ry 2024 10:44 am Oxycodone 20 mg tablet Discont inued 20 MG PO Every 4 hours as needed for pain 90 15 Mayuar y 2024 Janua ry 2024 3:41p m Pregabalin 200 mg capsule Discont inued 200 MG PO Three times daily 90 2024 10:43a m Febru florentino2024 9:40a m Alprazolam 0.5 mg tablet Discont inued 0.5 MG PO Four times daily as needed for anxiety 60 15 y 2024 10:44a m Febru 2024 3:03p m Oxycodone 20 mg tablet Discont inued 20 MG PO Every 4 hours as needed for pain 90 ry 2024 Febru 2024 3:03p m Ipratropium -Albuterol 0.5 mg-3 mg(2.5 mg base)/3 mL solution for nebulizatio n Discont inued 3 ML INHALA TION Twice daily as needed December 13, 2024 12:00a m Augus t 2024 12:43 pm Aspirin 325 mg tablet Discont inued 325 MG PO Daily December 13, 2024 12:00a m Augus t 2024 12:42 pm Trazodone 50 mg tablet Discont inued 50 MG PO Daily at bedtime December 13, 2024 12:00a m Augus t 2024 12:45 pm Sennosides- Docusate Sodium 8.6-50 mg tablet Discont inued 1 TAB-CA P PO Twice daily December 13, 2024 12:00a m Augus t 2024 12:45 pm Oxycodone 10 mg tablet Discont inued 10 MG PO Every 6 hours as needed December 13, 2024 12:00a m December 16, 2024 10:51 am Oxycodone 10 mg tablet Discont inued 10 MG PO EVERY 4-6 HOURS as needed for pain 75 15 Febobe r 2024 Octob er 2024 3:58p m Alprazolam 0.5 mg tablet Active 0.5 MG PO Three times daily as needed for anxiety 45 15 Octobe r 2024 3:54pm Complies with drug therapy Oxycodone 10 mg tablet Active 10 MG PO Every 4 hours as needed for pain 90 15 Octobe r 2024 Complies with drug therapy Pregabalin 100 mg capsule Active 100 MG PO Twice daily 60 30 Octobe r 2024 12:00a m Complies with drug therapy Immunizations Immunization Event Date Not Given Reason Dose Number Product Safety Professional Lot Number Vaccine Information Statement (VIS) Detail Administration Location COVID-19 mRNA, Comirnaty (Pfizer) August 02, 2020 COVID-19 mRNA, Comirnaty (Pfizer) August 22, 2020 influenza, unspecified formulation March 06, 2016 influenza, unspecified formulation April 28, 2020 Medical Equipment Device Date Implanted Device Details Vena cava filter, temporary/permanent January 31, 2025 [id number]: [id number] Issuing Agency: [facility] Device Id: [id number] Expiration Date: 2027-08-19 Lot Number: [id number] Procedures Procedure Date Performed Status Urine Culture February 17, 2025 completed Blood Culture February 17, 2025 completed Anaerobe Identification Only January 22, 2025 c ompleted Anaerobe Identification Only January 22, 2025 c ompleted Relevant Diagnostic Tests and/or Laboratory Data Laboratory Results Test Collection Date/Time Result Date/Time Result Interpretation Reference Range Result Comment Performing Site Urine Culture Reflexed January 22, 2025 10:25am January 22, 2025 10:25am [place] [place] Microsco pic Review January 22, 2025 10:25am YES Hubert Test January 22, 2025 10:47am January 22, 2025 10:47am POSITIVE POSITIVE Troponin I High Sensitiv ity January 22, 2025 11:03am January 22, 2025 11:03am 28.4 pg/mL 4.0-51.3 CUT-OFF POINTS HAVE BEEN ESTABLISHED BASED ON THE FOURTHUNIVE RSAL DEFINITION OF MYOCARDIAL INFARCTION. THE UPPERREFERE NCE LIMIT (URL) OF TROPONIN, DEFINED THE 99THPERCENT ILE OF cTnI DISTRIBUTIO N IN A REFERENCE POPULATION, HAS BEEN CONFIRMED THE DECISION THRESHOLD FOR MIDIAGNOSIS .99TH PERCENTILE = 51.4 PG/MLNOTE: HIGH-SENSIT IVITY TROPONIN ASSAY IS NOT INTENDED TO BEUSED IN ISOLATION BUT SHOULD BE INTERPRETED IN CONJUNCTION WITH OTHER DIAGNOSTIC AND CLINICAL INFORMATION . Magnesiu m Level January 22, 2025 11:03am January 22, 2025 11:03am 1.7 mg/dL Below low normal 1.8-2.4 Anion Gap January 22, 2025 11:03am January 22, 2025 11:03am 13.2 Lactic Acid Level January 22, 2025 11:03am January 22, 2025 11:03am 1.9 mmol/L 0.4-2.0 Prothrom b Time Internat ional Ratio January 22, 2025 11:03am January 22, 2025 11:03am 1.05 DESIRED INR:2.0-3.0 CONDITIONS NOT LISTED BELOW2.5-3. 5 FOR PROSTHETIC HEART VALVE REPLACEMENT 2.5-3.5 RECURRENT THROMBOSIS Basophil s # (Auto) January 22, 2025 11:03am January 22, 2025 11:03am 0.0 10 3/uL 0.0-0.1 Urine Amphetam ammy Screen January 22, 2025 11:16pm January 22, 2025 11:16pm NEGATIVE NEGATIVE Stool Occult Blood January 23, 2025 6:07am January 23, 2025 6:07am Positive Abnormal (applies to non-numeric results) Magnesiu m Level January 23, 2025 6:24am January 23, 2025 6:24am 1.9 mg/dL 1.8-2.4 Phosphor us Level January 23, 2025 6:24am January 23, 2025 6:24am 2.6 mg/dL 2.6-4.7 Anion Gap January 23, 2025 6:24am January 23, 2025 6:24am 14.1 Vitamin B12 Level January 23, 2025 2:07pm January 23, 2025 2:07pm 754 pg/mL 232-1245 Performed at: - [facility] [id number] [place], [place] [id number] Director: Marcelo Parikh PhD, Phone: [phone] Folate January 23, 2025 2:07pm January 23, 2025 2:07pm 3.20 ng/mL Below low normal 8.60-58.90 Ferritin January 23, 2025 2:07pm January 23, 2025 2:07pm 95.0 ng/mL 8.0-252.0 Iron Saturati on January 23, 2025 2:07pm January 23, 2025 2:07pm 6.3 % Hematocr it January 23, 2025 2:07pm January 23, 2025 2:07pm 25.9 % Below low normal 36.0-48.0 Magnesiu m Level January 24, 2025 5:48am January 24, 2025 5:48am 1.7 mg/dL Below low normal 1.8-2.4 Anion Gap January 24, 2025 5:48am January 24, 2025 5:48am 12.4 Hematocr it January 24, 2025 5:53pm January 24, 2025 5:53pm 28.3 % Below low normal 36.0-48.0 25-David xy Vitamin D Total January 25, 2025 5:26am January 25, 2025 5:26am 26.7 ng/mL Abnormal (applies to non-numeric results) 30.0-100.0 Vitamin D deficiency has been defined by the [place] [employer] and an Endocrine Society practice guideline as alevel of serum 25-OH vitamin D less than 20 ng/mL (1,2).The Endocrine Society went on to further define vitamin Dinsufficie ncy as a level between 21 and 29 ng/mL (2).1. IOM ([place] [employer]). 2010. Dietary reference intakes for calcium and D. [place]: The National Academies Press.2. Cristóbal MF, Telma CLEMENTS, Dony VIVEROS, et al. Evaluation, treatment, and prevention of vitamin D deficiency: an Endocrine Society clinical practice guideline. JCEM. 2010; 96(7):1911- 30.Performe d at: [facility] - [facility] [address] [id number] b Director: Marcelo Parikh PhD, Phone: [phone] Magnesiu m Level January 25, 2025 5:35am January 25, 2025 5:35am 1.7 mg/dL Below low normal 1.8-2.4 Anion Gap January 25, 2025 5:35am January 25, 2025 5:35am 13.7 Hematocr it January 25, 2025 5:35am January 25, 2025 5:35am 31.0 % Below low normal 36.0-48.0 Lactic Acid Level February 17, 2025 4:57pm February 17, 2025 4:57pm 0.8 mmol/L 0.4-2.0 Anion Gap February 17, 2025 4:57pm February 17, 2025 4:57pm 12.7 Basophil s # (Auto) February 17, 2025 4:57pm February 17, 2025 4:57pm 0.0 10 3/uL 0.0-0.1 SARS-CoV -2 Ag (CV2AG) February 17, 2025 5:01pm February 17, 2025 5:01pm NEGATIVE NEGATIVE This test has not been FDA cleared or approved, but has beenauthori zed by the FDA under an Emergency Use Authorizati on(EUA) for use by authorized laboratorie s certified underIA that meet the requirement s to perform moderate or highcomplex ity testing. This test has been authorized only forthe detection of proteins from SARS-CoV-2, not for any otherviruse s or pathogens. The emergency use of this test isauthorize d for the duration of the declaration thatcircums tances exist justifying the authorizati on ofemergency use of in vitro diagnostic tests for detectionan d/or diagnosis of Covid-19 under section 564(b)(1) of theAct, 21 U.S.C. 360bbb-3(b) (1), unless the declaration isterminate d or authorizati on is revoked sooner. Bedside Influenz a Type A Antigen February 17, 2025 5:01pm February 17, 2025 5:01pm Negative Negative for Flu A protein antigen. Infection due to Flu Acannot be ruled out. Flu A antigen in the sample may bebelow the detection limit of the test. Urine Culture Reflexed February 17, 2025 6:10pm [place] [place] Troponin I High Sensitiv ity February 17, 2025 7:35pm February 17, 2025 7:35pm 7.3 pg/mL 4.0-51.3 CUT-OFF POINTS HAVE BEEN ESTABLISHED BASED ON THE FOURTHUNIVE RSAL DEFINITION OF MYOCARDIAL INFARCTION. THE UPPERREFERE NCE LIMIT (URL) OF TROPONIN, DEFINED THE 99THPERCENT ILE OF cTnI DISTRIBUTIO N IN A REFERENCE POPULATION, HAS BEEN CONFIRMED THE DECISION THRESHOLD FOR MIDIAGNOSIS .99TH PERCENTILE = 51.4 PG/MLNOTE: HIGH-SENSIT IVITY TROPONIN ASSAY IS NOT INTENDED TO BEUSED IN ISOLATION BUT SHOULD BE INTERPRETED IN CONJUNCTION WITH OTHER DIAGNOSTIC AND CLINICAL INFORMATION . Urine Other Casts January 22, 2025 10:25am January 22, 2025 10:25am NONE SEEN #/LPF NONE SEEN Urine Bilirubi n January 22, 2025 10:25am SMALL Abnormal (applies to non-numeric results) NEGATIVE Arterial Blood Base Excess January 22, 2025 10:47am January 22, 2025 10:47am 0 mmol/L <2.0-2.0 Albumin/ Globulin Ratio January 22, 2025 11:03am January 22, 2025 11:03am 0.3 Prothrom bin Time January 22, 2025 11:03am January 22, 2025 11:03am 11.1 sec 9.0-11.6 Basophil s (%) (Auto) January 22, 2025 11:03am January 22, 2025 11:03am 0.2 % 0.2-2.0 Urine Barbitur ates Screen January 22, 2025 11:16pm January 22, 2025 11:16pm NEGATIVE NEGATIVE Albumin/ Globulin Ratio January 23, 2025 6:24am January 23, 2025 6:24am 0.6 Iron Level January 23, 2025 2:07pm January 23, 2025 2:07pm 8.0 ug/dL Below low normal 50.0-170.0 Hemoglob in January 23, 2025 2:07pm January 23, 2025 2:07pm 8.2 g/dL Below low normal 12.0-16.0 Albumin/ Globulin Ratio January 24, 2025 5:48am January 24, 2025 5:48am 0.5 Hemoglob in January 24, 2025 5:53pm January 24, 2025 5:53pm 9.3 g/dL Below low normal 12.0-16.0 Albumin/ Globulin Ratio January 25, 2025 5:35am January 25, 2025 5:35am 0.5 Hemoglob in January 25, 2025 5:35am January 25, 2025 5:35am 10.3 g/dL Below low normal 12.0-16.0 BUN/Crea tinine Ratio February 17, 2025 4:57pm February 17, 2025 4:57pm 12.5 Basophil s (%) (Auto) February 17, 2025 4:57pm February 17, 2025 4:57pm 0.3 % 0.2-2.0 Bedside Influenz a Type B Antigen February 17, 2025 5:01pm February 17, 2025 5:01pm Negative Negative for Flu B protein antigen. Infection due to Flu Bcannot be ruled out. Flu B antigen in the sample may bebelow the detection limit of the test. Urine Other Casts February 17, 2025 6:10pm NONE SEEN #/LPF NONE SEEN Urine Other Crystals January 22, 2025 10:25am January 22, 2025 10:25am None Seen #/HPF None Seen Urine Occult Blood January 22, 2025 10:25am MODERATE Abnormal (applies to non-numeric results) NEGATIVE Arterial Blood HCO3 January 22, 2025 10:47am January 22, 2025 10:47am 23.5 mmol/L 22.0-26.0 Albumin January 22, 2025 11:03am January 22, 2025 11:03am 1.8 g/dL Below low normal 3.4-5.0 Eosinoph ils # (Auto) January 22, 2025 11:03am January 22, 2025 11:03am 0.0 10 3/uL 0.0-0.7 Urine Benzodia zepines Screen January 22, 2025 11:16pm January 22, 2025 11:16pm POSITIVE Abnormal (applies to non-numeric results) NEGATIVE Albumin January 23, 2025 6:24am January 23, 2025 6:24am 2.2 g/dL Below low normal 3.4-5.0 Mean Corpuscu lar Hemoglob in January 23, 2025 6:24am January 23, 2025 6:24am 27.8 pg 26.7-34.0 Total Iron Binding Capacity January 23, 2025 2:07pm January 23, 2025 2:07pm 126.0 ug/dL Below low normal 250.0-450. 0 Albumin January 24, 2025 5:48am January 24, 2025 5:48am 1.7 g/dL Below low normal 3.4-5.0 Mean Corpuscu lar Hemoglob in January 24, 2025 5:48am January 24, 2025 5:48am 27.5 pg 26.7-34.0 Albumin January 25, 2025 5:35am January 25, 2025 5:35am 1.9 g/dL Below low normal 3.4-5.0 Mean Corpuscu lar Hemoglob in January 25, 2025 5:35am January 25, 2025 5:35am 28.3 pg 26.7-34.0 Blood Urea Nitrogen February 17, 2025 4:57pm February 17, 2025 4:57pm 7.0 mg/dL 7.0-18.0 Eosinoph ils # (Auto) February 17, 2025 4:57pm February 17, 2025 4:57pm 0.0 10 3/uL 0.0-0.7 Urine Other Crystals February 17, 2025 6:10pm None Seen #/HPF None Seen Urine Bacteria January 22, 2025 10:25am January 22, 2025 10:25am LARGE #/HPF Abnormal (applies to non-numeric results) NONE SEEN Urine Appearan ce January 22, 2025 10:25am CLOUDY Abnormal (applies to non-numeric results) CLEAR Blood Gas Liter Flow January 22, 2025 10:47am January 22, 2025 10:47am 3 Alkaline Phosphat ase January 22, 2025 11:03am January 22, 2025 11:03am 202 U/L Above high normal 46-116 Eosinoph ils (%) (Auto) January 22, 2025 11:03am January 22, 2025 11:03am 0.1 % Below low normal 0.9-7.0 Urine Buprenor phine January 22, 2025 11:16pm January 22, 2025 11:16pm NEGATIVE NEGATIVE DRUG CLASS TEST SYSTEM CUT-OFF CONCENTRATI ONS ARE ASFOLLOWS:A MP (Amphetamin e): 500 ng/mLBAR (Barbiturat es): 200 ng/mLBZO (Benzodiaze pines): 150 ng/mLBUP (Buprenorph ine): 10 ng/mLCOC (Cocaine): 150 ng/mLmAMP (Methamphet amine): 500 ng/mLMTD (Methadone) : 200 ng/mLOPI (Opiates): 100 ng/mLOXY (Oxycodone) : 100 ng/mLPCP (Phencyclid ine): 25 ng/mLTHC (Cannabinoi ds): 50 ng/mLTCA (Trycyclic Antidepress ants): 300 ng/mL Alkaline Phosphat ase January 23, 2025 6:24am January 23, 2025 6:24am 126 U/L Above high normal 46-116 Mean Corpuscu lar Hemoglob in [facility] January 23, 2025 6:24am January 23, 2025 6:24am 31.1 g/dL 29.9-35.2 Alkaline Phosphat ase January 24, 2025 5:48am January 24, 2025 5:48am 120 U/L Above high normal 46-116 Mean Corpuscu lar Hemoglob in [facility] January 24, 2025 5:48am January 24, 2025 5:48am 31.0 g/dL 29.9-35.2 Alkaline Phosphat ase January 25, 2025 5:35am January 25, 2025 5:35am 152 U/L Above high normal 46-116 Mean Corpuscu lar Hemoglob in [facility] January 25, 2025 5:35am January 25, 2025 5:35am 33.2 g/dL 29.9-35.2 Calcium Level February 17, 2025 4:57pm February 17, 2025 4:57pm 8.2 mg/dL Below low normal 8.5-10.1 Eosinoph ils (%) (Auto) February 17, 2025 4:57pm February 17, 2025 4:57pm 0.1 % Below low normal 0.9-7.0 Urine Bacteria February 17, 2025 6:10pm MODERATE #/HPF Abnormal (applies to non-numeric results) NONE SEEN Urine Mucus January 22, 2025 10:25am January 22, 2025 10:25am NONE SEEN NONE SEEN Urine Color January 22, 2025 10:25am ORANGE Abnormal (applies to non-numeric results) YELLOW Oxygen Delivery Device January 22, 2025 10:47am January 22, 2025 10:47am NC Alanine Aminotra nsferase (ALT/SGP T) January 22, 2025 11:03am January 22, 2025 11:03am 20 U/L 14-59 Hematocr it January 22, 2025 11:03am January 22, 2025 11:03am 36.3 % 36.0-48.0 Urine Cocaine Screen January 22, 2025 11:16pm January 22, 2025 11:16pm NEGATIVE NEGATIVE Alanine Aminotra nsferase (ALT/SGP T) January 23, 2025 6:24am January 23, 2025 6:24am 17 U/L 14-59 Mean Corpuscu lar Volume January 23, 2025 6:24am January 23, 2025 6:24am 89.2 fL 81.0-99.0 Alanine Aminotra nsferase (ALT/SGP T) January 24, 2025 5:48am January 24, 2025 5:48am 10 U/L Below low normal 14-59 Mean Corpuscu lar Volume January 24, 2025 5:48am January 24, 2025 5:48am 88.6 fL 81.0-99.0 Alanine Aminotra nsferase (ALT/SGP T) January 25, 2025 5:35am January 25, 2025 5:35am 18 U/L 14-59 Mean Corpuscu lar Volume January 25, 2025 5:35am January 25, 2025 5:35am 85.2 fL 81.0-99.0 Chloride Level February 17, 2025 4:57pm February 17, 2025 4:57pm 103 mmol/L 98-107 Hematocr it February 17, 2025 4:57pm February 17, 2025 4:57pm 28.5 % Below low normal 36.0-48.0 Urine Bilirubi n February 17, 2025 6:10pm SMALL Abnormal (applies to non-numeric results) NEGATIVE Urine RBC January 22, 2025 10:25am January 22, 2025 10:25am 2-5 #/HPF Abnormal (applies to non-numeric results) 0-2 Urine Glucose (UA) January 22, 2025 10:25am NEGATIVE mg/dL NEGATIVE Arterial Blood Oxygen Saturati on January 22, 2025 10:47am January 22, 2025 10:47am 94.8 % Aspartat e Amino Transf (AST/SGO T) January 22, 2025 11:03am January 22, 2025 11:03am 99 U/L Above high normal 15-37 Hemoglob in January 22, 2025 11:03am January 22, 2025 11:03am 11.4 g/dL Below low normal 12.0-16.0 Urine Methamph etamines Screen January 22, 2025 11:16pm January 22, 2025 11:16pm NEGATIVE NEGATIVE Aspartat e Amino Transf (AST/SGO T) January 23, 2025 6:24am January 23, 2025 6:24am 98 U/L Above high normal 15-37 Mean Platelet Volume January 23, 2025 6:24am January 23, 2025 6:24am 10.6 fL 9.5-13.5 Aspartat e Amino Transf (AST/SGO T) January 24, 2025 5:48am January 24, 2025 5:48am 63 U/L Above high normal 15-37 Mean Platelet Volume January 24, 2025 5:48am January 24, 2025 5:48am 10.3 fL 9.5-13.5 Aspartat e Amino Transf (AST/SGO T) January 25, 2025 5:35am January 25, 2025 5:35am 62 U/L Above high normal 15-37 Mean Platelet Volume January 25, 2025 5:35am January 25, 2025 5:35am 11.0 fL 9.5-13.5 Carbon Dioxide Level February 17, 2025 4:57pm February 17, 2025 4:57pm 22.8 mmol/L 21.0-32.0 Hemoglob in February 17, 2025 4:57pm February 17, 2025 4:57pm 9.5 g/dL Below low normal 12.0-16.0 Urine Occult Blood February 17, 2025 6:10pm SMALL Abnormal (applies to non-numeric results) NEGATIVE Urine Squamous Epitheli al Cells January 22, 2025 10:25am January 22, 2025 10:25am RARE #/LPF NONE/RARE Urine Ketones January 22, 2025 10:25am NEGATIVE mg/dL NEGATIVE Arterial Blood Partial Pressure CO2 January 22, 2025 10:47am January 22, 2025 10:47am 32.0 mm[Hg] Below low normal 35.0-45.0 BUN/Crea tinine Ratio January 22, 2025 11:03am January 22, 2025 11:03am 3.6 Immature Granuloc yte # (Auto) January 22, 2025 11:03am January 22, 2025 11:03am 0.07 10 3/uL Above high normal 0.00-0.03 Urine Methadon e Screen. January 22, 2025 11:16pm January 22, 2025 11:16pm NEGATIVE NEGATIVE BUN/Crea tinine Ratio January 23, 2025 6:24am January 23, 2025 6:24am 7.7 Platelet Count January 23, 2025 6:24am January 23, 2025 6:24am 126 10 3/uL Below low normal 150-450 BUN/Crea tinine Ratio January 24, 2025 5:48am January 24, 2025 5:48am 10.9 Platelet Count January 24, 2025 5:48am January 24, 2025 5:48am 117 10 3/uL Below low normal 150-450 BUN/Crea tinine Ratio January 25, 2025 5:35am January 25, 2025 5:35am 8.2 Platelet Count January 25, 2025 5:35am January 25, 2025 5:35am 139 10 3/uL Below low normal 150-450 Creatini ne February 17, 2025 4:57pm February 17, 2025 4:57pm 0.56 mg/dL 0.55-1.02 Immature Granuloc yte # (Auto) February 17, 2025 4:57pm February 17, 2025 4:57pm 0.06 10 3/uL Above high normal 0.00-0.03 Urine Appearan ce February 17, 2025 6:10pm SL CLOUDY CLEAR Urine WBC January 22, 2025 10:25am January 22, 2025 10:25am >100 #/HPF Abnormal (applies to non-numeric results) NONE SEEN Urine Leukocyt e Esterase January 22, 2025 10:25am MODERATE Abnormal (applies to non-numeric results) NEGATIVE Arterial Blood pH January 22, 2025 10:47am January 22, 2025 10:47am 7.475 Above high normal 7.350-7.45 0 Blood Urea Nitrogen January 22, 2025 11:03am January 22, 2025 11:03am 3.0 mg/dL Below low normal 7.0-18.0 Immature Granuloc yte % (Auto) January 22, 2025 11:03am January 22, 2025 11:03am 0.7 % Above high normal 0.0-0.5 Urine Opiates Screen January 22, 2025 11:16pm January 22, 2025 11:16pm NEGATIVE NEGATIVE Blood Urea Nitrogen January 23, 2025 6:24am January 23, 2025 6:24am 5.0 mg/dL Below low normal 7.0-18.0 Red Blood Count January 23, 2025 6:24am January 23, 2025 6:24am 2.88 10 6/uL Below low normal 4.20-5.40 Blood Urea Nitrogen January 24, 2025 5:48am January 24, 2025 5:48am 5.0 mg/dL Below low normal 7.0-18.0 Red Blood Count January 24, 2025 5:48am January 24, 2025 5:48am 2.80 10 6/uL Below low normal 4.20-5.40 Blood Urea Nitrogen January 25, 2025 5:35am January 25, 2025 5:35am 4.0 mg/dL Below low normal 7.0-18.0 Red Blood Count January 25, 2025 5:35am January 25, 2025 5:35am 3.64 10 6/uL Below low normal 4.20-5.40 Estimate d GFR ( ) February 17, 2025 4:57pm February 17, 2025 4:57pm >60 >=60 mL/min/1.7 3m 2 Immature Granuloc yte % (Auto) February 17, 2025 4:57pm February 17, 2025 4:57pm 0.6 % Above high normal 0.0-0.5 Urine Color February 17, 2025 6:10pm YELLOW YELLOW Urine Nitrite January 22, 2025 10:25am POSITIVE Abnormal (applies to non-numeric results) NEGATIVE Arterial Blood Partial Pressure O2 January 22, 2025 10:47am January 22, 2025 10:47am 68.9 mm[Hg] Below low normal 80.0-100.0 Calcium Level January 22, 2025 11:03am January 22, 2025 11:03am 8.4 mg/dL Below low normal 8.5-10.1 Lymphocy magali # (Auto) January 22, 2025 11:03am January 22, 2025 11:03am 0.9 10 3/uL Below low normal 1.2-3.8 Urine Oxycodon e/Oxymor phone Screen January 22, 2025 11:16pm January 22, 2025 11:16pm NEGATIVE NEGATIVE Calcium Level January 23, 2025 6:24am January 23, 2025 6:24am 8.1 mg/dL Below low normal 8.5-10.1 Red Cell Distribu tion Width January 23, 2025 6:24am January 23, 2025 6:24am 19.0 % Above high normal 11.0-15.0 Calcium Level January 24, 2025 5:48am January 24, 2025 5:48am 7.9 mg/dL Below low normal 8.5-10.1 Red Cell Distribu tion Width January 24, 2025 5:48am January 24, 2025 5:48am 19.2 % Above high normal 11.0-15.0 Calcium Level January 25, 2025 5:35am January 25, 2025 5:35am 8.3 mg/dL Below low normal 8.5-10.1 Red Cell Distribu tion Width January 25, 2025 5:35am January 25, 2025 5:35am 18.6 % Above high normal 11.0-15.0 Estimate d GFR (Non-Afr ican Greenlandic February 17, 2025 4:57pm February 17, 2025 4:57pm >60 >=60 mL/min/1.7 3m 2 Lymphocy magali # (Auto) February 17, 2025 4:57pm February 17, 2025 4:57pm 1.2 10 3/uL 1.2-3.8 Urine Glucose (UA) February 17, 2025 6:10pm NEGATIVE mg/dL NEGATIVE Urine pH January 22, 2025 10:25am 6.0 5.0-9.0 Blood Gas Sample Site January 22, 2025 10:47am January 22, 2025 10:47am R RADIAL Chloride Level January 22, 2025 11:03am January 22, 2025 11:03am 102 mmol/L 98-107 Lymphocy magali (%) (Auto) January 22, 2025 11:03am January 22, 2025 11:03am 8.1 % Below low normal 20.5-60.0 Urine Phencycl idine Screen January 22, 2025 11:16pm January 22, 2025 11:16pm NEGATIVE NEGATIVE Chloride Level January 23, 2025 6:24am January 23, 2025 6:24am 108 mmol/L Above high normal 98-107 Correcte d White Blood Count January 23, 2025 6:24am January 23, 2025 6:24am 8.6 10 3/uL 4.0-11.0 Chloride Level January 24, 2025 5:48am January 24, 2025 5:48am 105 mmol/L 98-107 Correcte d White Blood Count January 24, 2025 5:48am January 24, 2025 5:48am 5.5 10 3/uL 4.0-11.0 Chloride Level January 25, 2025 5:35am January 25, 2025 5:35am 103 mmol/L 98-107 Correcte d White Blood Count January 25, 2025 5:35am January 25, 2025 5:35am 5.4 10 3/uL 4.0-11.0 Glucose Level February 17, 2025 4:57pm February 17, 2025 4:57pm 107 mg/dL Above high normal 74-106 Lymphocy magali (%) (Auto) February 17, 2025 4:57pm February 17, 2025 4:57pm 12.4 % Below low normal 20.5-60.0 Urine Ketones February 17, 2025 6:10pm TRACE mg/dL Abnormal (applies to non-numeric results) NEGATIVE Urine Protein January 22, 2025 10:25am 100 mg/dL Abnormal (applies to non-numeric results) NEG/TRACE Carbon Dioxide Level January 22, 2025 11:03am January 22, 2025 11:03am 25.3 mmol/L 21.0-32.0 Mean Corpuscu lar Hemoglob in January 22, 2025 11:03am January 22, 2025 11:03am 27.7 pg 26.7-34.0 Urine Tricycli c Antidepr essants January 22, 2025 11:16pm January 22, 2025 11:16pm POSITIVE Abnormal (applies to non-numeric results) NEGATIVE Carbon Dioxide Level January 23, 2025 6:24am January 23, 2025 6:24am 22.9 mmol/L 21.0-32.0 Carbon Dioxide Level January 24, 2025 5:48am January 24, 2025 5:48am 24.6 mmol/L 21.0-32.0 Carbon Dioxide Level January 25, 2025 5:35am January 25, 2025 5:35am 26.3 mmol/L 21.0-32.0 Potassiu m Level February 17, 2025 4:57pm February 17, 2025 4:57pm 3.5 mmol/L 3.5-5.1 Mean Corpuscu lar Hemoglob in February 17, 2025 4:57pm February 17, 2025 4:57pm 27.9 pg 26.7-34.0 Urine Leukocyt e Esterase February 17, 2025 6:10pm LARGE Abnormal (applies to non-numeric results) NEGATIVE Urine Specific [place] January 22, 2025 10:25am 1.020 1.005-1.02 5 Creatini ne January 22, 2025 11:03am January 22, 2025 11:03am 0.83 mg/dL 0.55-1.02 Mean Corpuscu lar Hemoglob in [facility] January 22, 2025 11:03am January 22, 2025 11:03am 31.4 g/dL 29.9-35.2 Urine Marijuan a (THC) Screen January 22, 2025 11:16pm January 22, 2025 11:16pm NEGATIVE NEGATIVE Creatini ne January 23, 2025 6:24am January 23, 2025 6:24am 0.65 mg/dL 0.55-1.02 Creatini ne January 24, 2025 5:48am January 24, 2025 5:48am 0.46 mg/dL Below low normal 0.55-1.02 Creatini ne January 25, 2025 5:35am January 25, 2025 5:35am 0.49 mg/dL Below low normal 0.55-1.02 Sodium Level February 17, 2025 4:57pm February 17, 2025 4:57pm 135 mmol/L Below low normal 136-145 Mean Corpuscu lar Hemoglob in [facility] February 17, 2025 4:57pm February 17, 2025 4:57pm 33.3 g/dL 29.9-35.2 Urine Mucus February 17, 2025 6:10pm NONE SEEN NONE SEEN Urine Urobilin ogen January 22, 2025 10:25am 4.0 EU/dL Abnormal (applies to non-numeric results) 0.2-1.0 Estimate d GFR ( ) January 22, 2025 11:03am January 22, 2025 11:03am >60 >=60 mL/min/1.7 3m 2 Mean Corpuscu lar Volume January 22, 2025 11:03am January 22, 2025 11:03am 88.1 fL 81.0-99.0 Estimate d GFR ( ) January 23, 2025 6:24am January 23, 2025 6:24am >60 >=60 mL/min/1.7 3m 2 Estimate d GFR ( ) January 24, 2025 5:48am January 24, 2025 5:48am >60 >=60 mL/min/1.7 3m 2 Estimate d GFR ( ) January 25, 2025 5:35am January 25, 2025 5:35am >60 >=60 mL/min/1.7 3m 2 Mean Corpuscu lar Volume February 17, 2025 4:57pm February 17, 2025 4:57pm 83.6 fL 81.0-99.0 Urine Nitrite February 17, 2025 6:10pm POSITIVE Abnormal (applies to non-numeric results) NEGATIVE Estimate d GFR (Non-Afr ican Green[place]ic January 22, 2025 11:03am January 22, 2025 11:03am >60 >=60 mL/min/1.7 3m 2 Monocyte s # (Auto) January 22, 2025 11:03am January 22, 2025 11:03am 0.6 10 3/uL 0.3-0.8 Estimate d GFR (Non-Afr ican [place] January 23, 2025 6:24am January 23, 2025 6:24am >60 >=60 mL/min/1.7 3m 2 Estimate d GFR (Non-Afr ican [place] January 24, 2025 5:48am January 24, 2025 5:48am >60 >=60 mL/min/1.7 3m 2 Estimate d GFR (Non-Afr ican Green[place]ic January 25, 2025 5:35am January 25, 2025 5:35am >60 >=60 mL/min/1.7 3m 2 Monocyte s # (Auto) February 17, 2025 4:57pm February 17, 2025 4:57pm 0.8 10 3/uL 0.3-0.8 Urine pH February 17, 2025 6:10pm 6.0 5.0-9.0 Globulin January 22, 2025 11:03am January 22, 2025 11:03am 5.2 g/dL Monocyte s (%) (Auto) January 22, 2025 11:03am January 22, 2025 11:03am 5.1 % 1.7-12.0 Globulin January 23, 2025 6:24am January 23, 2025 6:24am 3.5 g/dL Globulin January 24, 2025 5:48am January 24, 2025 5:48am 3.5 g/dL Globulin January 25, 2025 5:35am January 25, 2025 5:35am 4.2 g/dL Monocyte s (%) (Auto) February 17, 2025 4:57pm February 17, 2025 4:57pm 8.5 % 1.7-12.0 Urine Protein February 17, 2025 6:10pm 100 mg/dL Abnormal (applies to non-numeric results) NEG/TRACE Glucose Level January 22, 2025 11:03am January 22, 2025 11:03am 102 mg/dL 74-106 Mean Platelet Volume January 22, 2025 11:03am January 22, 2025 11:03am 10.3 fL 9.5-13.5 Glucose Level January 23, 2025 6:24am January 23, 2025 6:24am 110 mg/dL Above high normal 74-106 Glucose Level January 24, 2025 5:48am January 24, 2025 5:48am 80 mg/dL 74-106 Glucose Level January 25, 2025 5:35am January 25, 2025 5:35am 84 mg/dL 74-106 Mean Platelet Volume February 17, 2025 4:57pm February 17, 2025 4:57pm 9.3 fL Below low normal 9.5-13.5 Urine RBC February 17, 2025 6:10pm 5-10 #/HPF Abnormal (applies to non-numeric results) 0-2 Potassiu m Level January 22, 2025 11:03am January 22, 2025 11:03am 3.5 mmol/L 3.5-5.1 Neutroph ils # (Auto) January 22, 2025 11:03am January 22, 2025 11:03am 9.2 10 3/uL Above high normal 1.4-6.5 Potassiu m Level January 23, 2025 6:24am January 23, 2025 6:24am 3.0 mmol/L Below low normal 3.5-5.1 Potassiu m Level January 24, 2025 5:48am January 24, 2025 5:48am 3.0 mmol/L Below low normal 3.5-5.1 Potassiu m Level January 25, 2025 5:35am January 25, 2025 5:35am 3.0 mmol/L Below low normal 3.5-5.1 Neutroph ils # (Auto) February 17, 2025 4:57pm February 17, 2025 4:57pm 7.7 10 3/uL Above high normal 1.4-6.5 Urine Specific [place] February 17, 2025 6:10pm 1.010 1.005-1.02 5 Sodium Level January 22, 2025 11:03am January 22, 2025 11:03am 137 mmol/L 136-145 Neutroph ils (%) (Auto) January 22, 2025 11:03am January 22, 2025 11:03am 85.8 % Above high normal 43.0-75.0 Sodium Level January 23, 2025 6:24am January 23, 2025 6:24am 142 mmol/L 136-145 Sodium Level January 24, 2025 5:48am January 24, 2025 5:48am 139 mmol/L 136-145 Sodium Level January 25, 2025 5:35am January 25, 2025 5:35am 140 mmol/L 136-145 Neutroph ils (%) (Auto) February 17, 2025 4:57pm February 17, 2025 4:57pm 78.1 % Above high normal 43.0-75.0 Urine Squamous Epitheli al Cells February 17, 2025 6:10pm RARE #/LPF NONE/RARE Total Bilirubi n January 22, 2025 11:03am January 22, 2025 11:03am 1.7 mg/dL Above high normal 0.2-1.0 Platelet Count January 22, 2025 11:03am January 22, 2025 11:03am 177 10 3/uL 150-450 Total Bilirubi n January 23, 2025 6:24am January 23, 2025 6:24am 1.3 mg/dL Above high normal 0.2-1.0 Total Bilirubi n January 24, 2025 5:48am January 24, 2025 5:48am 0.7 mg/dL 0.2-1.0 Total Bilirubi n January 25, 2025 5:35am January 25, 2025 5:35am 0.9 mg/dL 0.2-1.0 Platelet Count February 17, 2025 4:57pm February 17, 2025 4:57pm 215 10 3/uL 150-450 Urine Urobilin ogen February 17, 2025 6:10pm 4.0 EU/dL Abnormal (applies to non-numeric results) 0.2-1.0 Total Protein January 22, 2025 11:03am January 22, 2025 11:03am 7.0 g/dL 6.4-8.2 Red Blood Count January 22, 2025 11:03am January 22, 2025 11:03am 4.12 10 6/uL Below low normal 4.20-5.40 Total Protein January 23, 2025 6:24am January 23, 2025 6:24am 5.7 g/dL Below low normal 6.4-8.2 Total Protein January 24, 2025 5:48am January 24, 2025 5:48am 5.2 g/dL Below low normal 6.4-8.2 Total Protein January 25, 2025 5:35am January 25, 2025 5:35am 6.1 g/dL Below low normal 6.4-8.2 Red Blood Count February 17, 2025 4:57pm February 17, 2025 4:57pm 3.41 10 6/uL Below low normal 4.20-5.40 Urine WBC February 17, 2025 6:10pm 50-75 #/HPF Abnormal (applies to non-numeric results) NONE SEEN Red Cell Distribu tion Width January 22, 2025 11:03am January 22, 2025 11:03am 19.4 % Above high normal 11.0-15.0 Red Cell Distribu tion Width February 17, 2025 4:57pm February 17, 2025 4:57pm 20.4 % Above high normal 11.0-15.0 Correcte d White Blood Count January 22, 2025 11:03am January 22, 2025 11:03am 10.7 10 3/uL 4.0-11.0 Correcte d White Blood Count February 17, 2025 4:57pm February 17, 2025 4:57pm 9.9 10 3/uL 4.0-11.0 Microbiology Results Procedure Source Result Collection Date/Time Result Date/Time Result Comment Performing Site Anaerobe Identification Only January 22, 2025 11:03am January 22, 2025 11:03am Anaerobe Identification Only January 22, 2025 11:18am January 22, 2025 11:18am Blood Culture Blood, Left Wrist Staphylococcus sp coag neg February 17, 2025 4:57pm February 20, 2025 9:41am [facility] [id number] [address] [place] [id number] Urine Culture Urine, Not Otherwise Specified Escherichia coli (ESBL) February 17, 2025 6:10pm February 21, 2025 8:23am [facility] [id number] [address] [place] [address] Vital Signs Vital Reading Result Reference Range Collection Date/Time Height 66 [in_i] January 27, 2025 2:23pm Weight 79.80 kg February 01, 2025 6:00am Body Temperature 97.2 [degF] 97.6-99.0 February 012024 12:00pm Heart Rate 84 /min 60-100 February 01, 2025 4:00pm Respiratory rate 16 /min 12-24 February 012024 4:00pm Oxygen saturation by Pulse oximetry 95 % 95-100 February 01, 2025 4:00pm BP Systolic 116 mm[Hg] 100-140 February 01, 2025 4:00pm BP Diastolic 56 mm[Hg] 60-100 February 01, 2025 4:00pm Inhaled oxygen flow rate 2 L/min [facility] 2024 12:00pm Height 67 [in_i] February 21, 2025 2:28pm Weight 75.40 kg February 25 4:11am Body Temperature 97.9 [degF] 97.6-99.0 February 12:00am Heart Rate 93 /min 60-100 February 25 11:27am Respiratory rate 18 /min -February 11:27am Oxygen saturation by Pulse oximetry 97 % 95-100 February 25, 2025 11 :27am BP Systolic 134 mm[Hg] 100-140 February 25 11:27am BP Diastolic 80 mm[Hg] 60-100 February 25 11:27am Inhaled oxygen flow rate 2 L/min [facility] 2024 2:37am Advance Directives Advance Directive Response Recorded Date/ Time Advance Directives No March 02, 2025 9:17am Insurance Providers Guarantor Candy Frazier Address [address] [address] Contact Info. Home Phone: Payer Policy Id Subscriber's Name Subscriber Id Effectiv e Date Ex[place] Date [facility] [place] [id number] Candy Frazier [id number] Sunitha PALM/MICHELLE [id number] Trev Frazier [id number] Encounters Encounter Location(s) Arrival/Admit Date Discharge/Depart Date Provider(s) Non-patient / Non-visit -[facility] December 13, 2024 10:13am Alyssa Romo Non-patient / Non-visit -[facility] December 23, 2024 11:59pm Kymberly Gilmore MD Departed Physician/Prov ider Office Visit -[facility] January 11, 2025 4:15pm January 11, 2025 4:58pm Lico Rodriguez APRN Departed Physician/Prov ider Office Visit -[facility] January 18, 2025 2:02pm January 18, 2025 2:58pm Kymberly Gilmore MD Non-patient / Non-visit -[facility] January 22, 2025 10:25am Isha Holley MD Non-patient / Non-visit -[facility] January 23, 2025 6:24am Jackson Mondragon MD Non-patient / Non-visit -[facility] January 24, 2025 5:48am Jackson Mondragon MD Non-patient / Non-visit -[facility] January 25, 2025 5:35am Jackson Mondragon MD Non-patient / Non-visit -[facility] Gastro January 25, 2025 5:04pm Palmira Cope MD Non-patient / Non-visit -[facility] Vascular Surg February 01, 2025 12:00am Babri Fisher APRN Non-patient / Non-visit -[facility] February 02, 2025 9:05am Tiffany Egan CMA Non-patient / Non-visit -[facility] February 17, 2025 4:57pm Karon Muñoz DO Departed Referred -[facility] February 17, 2025 6:10pm February 17, 2025 6:11pm Karon Muñoz DO Non-patient / Non-visit -[facility] Infect Dis February 18, 2025 1:27am Kenneth Greenberg MD Non-patient / Non-visit -[facility] February 28, 2025 8:22am Tiffany Egan CMA Departed Physician/Prov ider Office Visit -[facility] March 08, 2025 1:23pm March 08, 2025 2:34pm Kymberly Gilmore MD Departed Physician/Prov ider Office Visit -[facility] Palliative March 08, 2025 4:02pm March 08, 2025 4:16pm Lico Rodriguez [employer] Recent Diagnosis Onset Date Admit Date Acute blood loss anemia Unknown e r 2024 5:04pm Anemia Unknown January 25 5:04pm Chronic pulmonary embolism w ithout acute cor pulmonale Unknown January 25, 2025 5:04pm Closed right ankle fracture Unknown Jan 5:04pm DVT (deep venous thrombosis) Unknown Jan 5:04pm GI bleed Unknown January 25 5:04pm History of Linsey-en-Y gastric bypass Unknown January 25, 2025 5:04pm Impaired mobility and ADLs Unknown 2024 5:04pm Left foot pain Unknown January 25 5:04pm LV (left ventricular) mural thrombus Unknown January 25, 2025 5:04pm Takotsubo cardiomyopathy Unknown Septemb er 2024 5:04pm Catheter-associated urinary tract infection Unkn own February 18, 2025 1:27am Chronic pulmonary embolism w ithout acute cor pulmonale Unknown February 18, 2025 1:27am DVT (deep venous thrombosis) Unknown Sep tember 2024 1:27am History of Linsey-en-Y gastric bypass Unknown February 18, 2025 1:27am Infection due to ESBL-produc ing Escherichia coli Unknown February 18, 2025 1:27am LV (left ventricular) mural thrombus Unknown February 18, 2025 1:27am Sepsis Unknown February 18, 2025 1:27am [facility] UTI (urinary tract infection) Unknown Se ptember 2024 1:27am Assessments Diagnosis Onset Date Resolution Status Admit Date Acute blood loss anemia acute S [id number] 5:04pm Anemia acute January 25, 2025 5:04pm Chronic pulmonary embolism without acute cor pulmonale acute Jan 5:04pm Closed right ankle fracture acute January 25, 2025 5:04pm DVT (deep venous thrombosis) acute January 25, 2025 5:04pm GI bleed acute January 25, 2025 5:04pm History of Linsey-en-Y gastric bypass acute January 25, 5:04pm Impaired mobility and ADLs acute January 25, 2025 5:04pm Left foot pain acute January 25, 2025 5:04pm LV (left ventricular) mural thrombus acute January 25, 5:04pm Takotsubo cardiomyopathy acute January 25, 2025 5:04pm Catheter-associated urinary tract infection acute February 18, 2025 1:27am Chronic pulmonary embolism without acute cor pulmonale acute Jan ember 2024 1:27am DVT (deep venous thrombosis) acute February 18, 2025 1:27am History of Linsey-en-Y gastric bypass acute February 18, 2025 1:27am Infection due to ESBL-produc ing Escherichia coli acute February 18, 2025 1:27am LV (left ventricular) mural thrombus acute February 18, 2025 1:27am Sepsis acute January 1:27am Takotsubo cardiomyopathy acute February 18, 2025 1:27am UTI (urinary tract infection) acute February 18, 2025 1:27am Plan of Treatment Future Tests Future scheduled test information is unavailable Pending Tests Pending diagnostic test information is unavailable Future Visits Future appointment information is unavailable Referrals to Other Providers Reason for Referral Referral Start Date Provider Provider Contact Information Provider Address You have been scheduled for a follow up appointment for the following date and time, please call to reschedule if needed. This appointment will be with Dr. Alvarado. [facility] Work Phone: [address] [place] [address] [facility] [address] You have been scheduled for a follow up appointment for the following date and time, please call to reschedule if needed. Jayjay Robins MD Work Phone: [address] [place] [address] [facility] [address] Tatyana Ohara MD Email: [email or web address] Work Phone: [address] [place] [address] [facility] [address] You have been scheduled for a follow up appointment for the following date and time, please call to reschedule if needed. Kymberly Gilmore MD Work Phone: [address] [place] [phone] The office will call with your pathology results. If you have any questions, please call the office. Palmira Cpoe MD Work Phone: [address] [place] [address], [phone] [facility] [address] You have been scheduled for a follow up appointment for the following date and time, please call to reschedule if needed. Kymberly Gilmore MD Work Phone: [phone] [facility] [phone] Future Procedures Procedure Name Ordered Date Scheduled Date Initiate Home Health February 01, 2025 2:34pm Admit Status Order January 25, 2025 5:40pm Se ptember 2024 5:40pm Consult to Cardiology January 25, 2025 5:40pm January 25, 2025 5:41pm Discharge Order February 01, 2025 1:58pm Atif liz 2024 1:58pm Consult to Gastroenterology January 25, 2025 5:40pm January 25, 2025 5:40pm Consult to Hematology January 27, 2025 3:10pm January 27, 2025 3:10pm Consult to Orthopedic Surgery January 26 3:15pm January 26, 2025 3:15pm Consult to Vascular Surgery January 26, 2025 3:13pm January 26, 2025 3:13pm Initiate Home Health February 25, 2025 9:26am 1 Days Admit Status Order February 18, 2025 1:47am S levi 2024 1:48am Discharge Order February 25, 2025 12:08pm Octobe r 2024 12:08pm Consult to Infectious Diseases February 21, 2025 10:10am February 21, 2025 10:10am Future Medications Future medication information is unavailable Patient Instructions Instruction Admit Date Know your Meds January 25, 2025 5:04pm Hope Pamphlet Know your Meds February 18, 2025 1:27am
[2025-03-12] VITALS (44 sets, daily range): BP systolic 72–107; BP diastolic 48–78; PULSE 107–129; TEMP 37.1–37.3; O2SAT 87–100; BMI 28.7
--- OUTSIDE RECORDS SUMMARY | 2025-03-12 11:36 | XMS_ITS | Encounter Summary ---
Author Organization [facility] [employer] [facility] tem Address [id number] [address] [place] [address] Care Team Providers Care Television News Producer Name Role Phone Kymberly Gilmore MD Primary Care Provider [phone] Encounter Details Date Type Department Care Team (Late st Contact Info) Description 01/20/2025 Lab Requisition [facility] - Lab [address] [place] [phone] Kymberly Gilmore MD [address] [place] [address] Hypo-osmolality and hyponatremia; Anemia, unspecified; Hypokalemia Social [...] - 146 mmol/L 01/20/2025 2:00 PM EDT [facility] POTASSIUM 3.6 3.5 - 5.0 mmol/L 01/20/2025 2:00 PM EDT [facility] CHLORIDE 105 98 - 109 mmol/L 01/20/2025 2:00 PM EDT [facility] CARBON DIOXIDE 25 22 - 32 mmol/L 01/20/2025 2:00 PM EDT [facility] ANION GAP 9 5 - 15 mmol/L 01/20/2025 2:00 PM EDT [facility] BLOOD UREA NITROGEN <5(L) 5 - 23 mg/dL 01/20/2025 2:00 PM EDT [facility] CREATININE 0.66 0.40 - 1.00 mg/dL 01/20/2025 2:00 PM EDT [facility] Comment:METHOD TRACEABLE TO IDMS STANDARD GLUCOSE 123(H) 65 - 99 mg/dL 01/20/2025 2:00 PM EDT [facility] CALCIUM 8.5 8.5 - 10.5 mg/dL 01/20/2025 2:00 PM EDT [facility] EGFR Non-Race Dependent >90 >=60 ml/min/1.7 3sq.m 01/20/2025 2:00 PM EDT [facility] Comment: eGFR not reported due to non-numeric value for Creatinine. EGFR not calculated due to patient's gender not being defined. Reported eGFR is based on the CKD-EPI 2020 equation that does not use a race coefficient. Blood Venous blood / Unknown 01/20/2025 11:42 AM EDT 01/20/2025 12:49 PM EDT us Kymberly Gilmore MD LAB BLOOD ORDERABLES Final Res ult [facility] [address] [place] [address], * (ABNORMAL) CBC auto differential (01/20/2025 11:42 AM EDT) WBC 4.7 4 - 11 x10E9/L 01/20/2025 1:01 PM EDT [facility] RBC Count 3.83 3.8 - 5.2 X10E12/L 01/20/2025 1:01 PM EDT [facility] Hemoglobin 10.5(L) 11.7 - 15.5 g/dL 01/20/2025 1:01 PM EDT [facility] Hematocrit 32.9(L) 35 - 47 % 01/20/2025 1:01 PM EDT [facility] MCV 86 80 - 100 fL 01/20/2025 1:01 PM EDT [facility] MCH 27.3 27 - 34 pg 01/20/2025 1:01 PM EDT [facility] MCHC 31.8(L) 32 - 36 g/dL 01/20/2025 1:01 PM EDT [facility] RDW 20.7(H) 11.5 - 15 % 01/20/2025 1:01 PM EDT [facility] Platelet Count 283 150 - 450 X10E9/L 01/20/2025 1:01 PM EDT [facility] MPV 7.8 7 - 12 fL 01/20/2025 1:01 PM EDT [facility] Neutrophils % 63.6 % 01/20/2025 1:01 PM EDT [facility] Lymphocytes % 27.1 % 01/20/2025 1:01 PM EDT [facility] Monocytes % 7.4 % 01/20/2025 1:01 PM EDT [facility] Eosinophils % 1.4 % 01/20/2025 1:01 PM EDT [facility] Basophils % 0.5 % 01/20/2025 1:01 PM EDT [facility] Neutrophils Absolute (A) 3.0 1.5 - 6.6 10*3/uL 01/20/2025 1:01 PM EDT [facility] Lymphocytes Absolute 1.3 1.0 - 3.5 10*3/uL 01/20/2025 1:01 PM EDT [facility] Monocytes Absolute 0.3 0.0 - 0.9 10*3/uL 01/20/2025 1:01 PM EDT [facility] Eosinophils Absolute 0.1 0.0 - 0.4 10*3/uL 01/20/2025 1:01 PM EDT [facility] Basophils Absolute 0.0 0.0 - 0.2 10*3/uL 01/20/2025 1:01 PM EDT [facility] Differential Type AUTOMATED DIFFERENTIAL 01/20/2025 1:01 PM EDT [facility] Blood Venous blood / Unknown 01/20/2025 11:42 AM EDT 01/20/2025 12:49 PM EDT us Kymberly Gilmore MD LAB BLOOD ORDERABLES Final Res ult [facility] [address] [place] [address], documented in this encounter Visit Diagnoses Diagnosis Hypo-osmolality and hyponatremia Anemia, unspecified Hypokalemia Hypopotassemia documented in this encounter Care Teams Television News Producer Relationship Specialty Start Date End Date Kymberly Gilmore MD [address] [place] [address] PCP - General Family Medicine 02/03/19 documented as of this encounter
--- OUTSIDE RECORDS SUMMARY | 2025-03-12 11:36 | XMS_ITS | Encounter Summary ---
Author Organization [facility] tem Address [id number] [address] [place] [address] Care Team Providers Care Mortgage Advisor Name Role Phone Kymberly Gilmore MD Primary Care Provider [phone] Encounter Details Date Type Department Care Team (Late st Contact Info) Description 01/07/2025 Lab Requisition [facility] - Lab [address] [place] [address] Kymberly Gilmore MD [address] [place], [place] [id number] Hypo-osmolality and hyponatremia Social History Tobacco Use [...] - 11 x10E9/L 01/07/2025 6:38 PM EDT [facility] RBC Count 2.83(L) 3.8 - 5.2 X10E12/L 01/07/2025 6:38 PM EDT [facility] Hemoglobin 8.2(L) 11.7 - 15.5 g/dL 01/07/2025 6:38 PM EDT [facility] Hematocrit 25.1(L) 35 - 47 % 01/07/2025 6:38 PM EDT [facility] MCV 89 80 - 100 fL 01/07/2025 6:38 PM EDT [facility] MCH 28.8 27 - 34 pg 01/07/2025 6:38 PM EDT [facility] MCHC 32.5 32 - 36 g/dL 01/07/2025 6:38 PM EDT [facility] RDW 18.4(H) 11.5 - 15 % 01/07/2025 6:38 PM EDT [facility] Platelet Count 174 150 - 450 X10E9/L 01/07/2025 6:38 PM EDT [facility] MPV 7.9 7 - 12 fL 01/07/2025 6:38 PM EDT [facility] Neutrophils % 49.6 % 01/07/2025 6:38 PM EDT [facility] Lymphocytes % 39.0 % 01/07/2025 6:38 PM EDT [facility] Monocytes % 8.2 % 01/07/2025 6:38 PM EDT [facility] Eosinophils % 2.8 % 01/07/2025 6:38 PM EDT [facility] Basophils % 0.4 % 01/07/2025 6:38 PM EDT [facility] Neutrophils Absolute (A) 1.5 1.5 - 6.6 10*3/uL 01/07/2025 6:38 PM EDT [facility] Lymphocytes Absolute 1.2 1.0 - 3.5 10*3/uL 01/07/2025 6:38 PM EDT [facility] Monocytes Absolute 0.3 0.0 - 0.9 10*3/uL 01/07/2025 6:38 PM EDT [facility] Eosinophils Absolute 0.1 0.0 - 0.4 10*3/uL 01/07/2025 6:38 PM EDT [facility] Basophils Absolute 0.0 0.0 - 0.2 10*3/uL 01/07/2025 6:38 PM EDT [facility] Differential Type AUTOMATED DIFFERENTIAL 01/07/2025 6:38 PM EDT [facility] Blood Venous blood / Unknown 01/07/2025 4:55 PM EDT 01/07/2025 6:25 PM EDT us Kymberly Gilmore MD LAB BLOOD ORDERABLES Final Res ult [facility] [address] [place] [address], [place] * (ABNORMAL) Basic Metabolic Panel (01/07/2025 4:55 PM EDT) SODIUM 137 134 - 146 mmol/L 01/07/2025 6:46 PM EDT [facility] POTASSIUM 3.0(L) 3.5 - 5.0 mmol/L 01/07/2025 6:46 PM EDT [facility] CHLORIDE 101 98 - 109 mmol/L 01/07/2025 6:46 PM EDT [facility] CARBON DIOXIDE 27 22 - 32 mmol/L 01/07/2025 6:46 PM EDT [facility] ANION GAP 9 5 - 15 mmol/L 01/07/2025 6:46 PM EDT [facility] BLOOD UREA NITROGEN <5(L) 5 - 23 mg/dL 01/07/2025 6:46 PM EDT [facility] CREATININE 0.38(L) 0.40 - 1.00 mg/dL 01/07/2025 6:46 PM EDT [facility] Comment:METHOD TRACEABLE TO IDMS STANDARD GLUCOSE 99 65 - 99 mg/dL 01/07/2025 6:46 PM EDT [facility] CALCIUM 8.1(L) 8.5 - 10.5 mg/dL 01/07/2025 6:46 PM EDT [facility] EGFR Non-Race Dependent >90 >=60 ml/min/1.7 3sq.m 01/07/2025 6:46 PM EDT [facility] Comment: eGFR not reported due to non-numeric value for Creatinine. Reported eGFR is based on the CKD-EPI 2020 equation that does not use a race coefficient. Blood Venous blood / Unknown 01/07/2025 4:55 PM EDT 01/07/2025 6:25 PM EDT us Kymberly Gilmore MD LAB BLOOD ORDERABLES Final Res ult [facility] [address] [place] [address] documented in this encounter Visit Diagnoses Diagnosis Hypo-osmolality and hyponatremia documented in this encounter Care Teams Mortgage Advisor Relationship Specialty Start Date End Date Kymberly Gilmore MD [address] [place] [address] PCP - General Family Medicine 02/03/19 documented as of this encounter
--- OUTSIDE RECORDS SUMMARY | 2025-03-12 11:36 | XMS_ITS | Encounter Summary ---
Author Organization [facility] Address [address] [place] [address] Phone Care Team Providers Care Brinell Tester Name Role Phone Kymberly Gilmore MD Primary Care Provider [phone] Yossi Hunter MD Unavailable [phone] Encounter Details Date Type Department Care Team (Late st Contact Info) Description 01/31/2025 Scanned Document [facility] [address] [place] [phone] Scanning, Generic Provider Social History Tobacco Use [...] Description 03/15/2025 1:20 PM EDT Office Visit [place] [id number] [facility] [address] [place] [address] Tatyana Ohara MD [address] [facility] [address], [place] [address] [place] [address] documented as of this encounter Visit Diagnoses Not on filedocumented in this encounter Care Teams Brinell Tester Relationship Specialty Start Date End Date Kymberly Gilmore MD PCP - General Family Medicine 05/27/23 Yossi Hunter MD [address] [facility], [facility] [address] [place] [address]raiser Cardiology 06/17/23 documented as of this encounter
--- OUTSIDE RECORDS SUMMARY | 2025-03-12 11:36 | XMS_ITS | Encounter Summary ---
Author Organization [facility] Address [address] [place] [address] Phone Care Team Providers Care Electromyographic Technician Name Role Phone Kymberly Gilmore MD Primary Care Provider [phone] Yossi Hunter MD Unavailable Encounter Details Date Type Department Care Team (Late st Contact Info) Description 02/01/2025 Scanned Document [facility] [address] [place] [phone] Scanning, Generic Provider Social History Tobacco Use [...] Description 03/15/2025 1:20 PM EDT Office Visit [place] [address] [facility] [address] [place] [address] Tatyana Ohara MD [address] [facility] 2, [address] [place] [address] documented as of this encounter Visit Diagnoses Not on filedocumented in this encounter Care Teams Electromyographic Technician Relationship Specialty Start Date End Date Kymberly Gilmore MD PCP - General Family Medicine 05/27/23 Yossi Hunter MD [address] [facility], [facility] [address] [place] [address] Medical Equipment Sales Cardiology 06/17/23 documented as of this encounter
--- OUTSIDE RECORDS SUMMARY | 2025-03-12 11:37 | XMS_ITS | Patient Health Record ---
Author Organization [facility] Address [address] [place] [address] Care Team Providers Care Software Specialist Name Role Phone Kymberly Mitchell M.D. Primary Care Provider Unavail able JewelJovana Rocha Unavailable [phone] Cat BURKETT, Bhupinder Unavailable Unavailab David Sosa Unavailable [phone] Ana Lilia Mcclain Unavailable [phone] Allergies No Known Allergies Results Component Value Reference Range Notes TYPE AND SCREEN CAPTURE Reviewed date:04/23/2024 09:16:02 AM Interpretation: Performing Lab: Notes/Report: [facility] Original Ordering Provider: Rajeev VILLALBA Provider Role: Ordering ABO CAPTURE O RH CAPTURE (2 D CLONES) NEG INDIRECT FADI CAPTURE NEG Performing Lab: see note [facility] - [facility] [address] [facility] [address] [address] GFR, ESTIMATED, IOS Reviewed date:04/23/2024 09:16:02 AM Interpretation: Performing Lab: Notes/Report: [facility] Original Ordering Provider: Rajeev VILLALBA [...] Performing Lab: see note [facility] - [facility] [place] [address] [place] [address] Bipin Patrick POC ISTAT CHEM 8 AT IOS Reviewed date:04/23/2024 09:16:02 AM Interpretation: Performing Lab: Notes/Report: [facility] Original Ordering Provider: DAVID TRIPATHI Interested Provider Role: Ordering IOS BUN WB ISTAT [...] Surgeon/Assist: ST ROCHA/ALESIA OR DAVID Surgery Location: [facility] Surgery Date & Time: 06/08/24 @ 2:15PM Hosp arrival time day of: 12:15PM Surgery End Time: 4:15PM Procedure: L4-5 REVISION DECOMPRESSION WITH FUSION Special Equipment: SSEP, PRONE, TRINIDAD TABLE, SURGALIGN Diagnosis: M48.061 FORAMINAL STENOSIS Admission Type: OUTPATIENT Anesthesia Type/CPNB: GENERAL Bed 72 HOURS Post-op Appointment Date: 07/30/24 @ 10:30AM Lab Location: [facility] Lab Date/Time: ON OR BEFORE 03/29/24 General Cleaner: RAJWINDER Moran Physician: DR MITCHELL 04/07/24 @ 10AM Clearance Appt Date/T DR QUAN SHARPE 04/02/24 @ 9:30AM History & Physical Appointment Date/: 04/15/24 @ 2PM [place] XR LUMBAR SPINE 1 VW Reviewed date:06/09/2024 03:29:49 PM Interpretation: Performing Lab: Notes/Report: MOBILE LATERAL LUMBAR SPINE: [facility] [address] [place] [address], Original Ordering Provider: Rajeev PLASENCIA Provider Role: Ordering XR LUMBAR SPINE 1 VW Reviewed date:06/09/2024 03:29:49 PM Interpretation: Performing Lab: Notes/Report: MOBILE LATERAL LUMBAR SPINE: [place] [address], Original Ordering Provider: Rajeev PLASENCIA Provider Role: Ordering EKG 12-LEAD Reviewed date:06/09/2024 03:29:49 PM Interpretation: Performing Lab: Notes/Report: [address] [place] [address] [address] [place] [address], Original Ordering Provider: Rajeev ARZOLA Provider Role: Attending EKG 12-LEAD Reviewed date:06/16/2024 11:01:31 AM Interpretation: Performing Lab: Notes/Report: [address] [place] [address] [place] [address], Original Ordering Provider: Rajeev ARZOLA Provider Role: Attending XR WRIST LEFT STANDARD Reviewed date:06/14/2024 08:57:56 AM Interpretation: Performing Lab: Notes/Report: XR WRIST LEFT (MIN 3 VIEWS) [place] [address] [place] [address], Original Ordering Provider: Rajeev GRIFFIN Provider Role: Ordering Reason For Referral Reason NO AUTH REQ..............................06/08/24...............................MCR L4-5 REVISION DECOMPRESSION WITH FUSION 46019, 38741, 13031, [address]674, [address] Diagnosis 1 Lumbar radiculopathy (M54.16) Diagnosis 2 Foraminal stenosis of lumbar region (M48 .061) Referral Organizati on [facility] Referring Provider First Name Jovana Referring Provider Last Name St Rocha Referring Provider Speciality Orthopedic Surgery Referred Organizati on [facility] Outpatient Referred Address [address] [place] [id number], Procedure 1 Arthrodesis, posterior lumbar, 1 lumbar level (78757) Procedure 2 Laminectomy, facetectomy and foraminotom y single lumbar (10524) Procedure 3 Laminectomy, facetectomy and foraminotom y additional vertebral segment (31064) Procedure 4 Posterior non-segmental instrumentation (66430) Procedure 5 Autograft for spine surgery only; local obtained from same incision (06415) General Notes Rajwinder Yang 03/17/2024 03:10:31 PM [...] THE MEDICARE INPATIENT LIST. PLEASE UPDATE WITH [facility]., Rajwinder Yang 05/31/2024 08:50:58 AM >CHANGED TO OUTPATIENT, Kadi Leblanc 05/31/2024 09:01:06 AM > THANK YOU, FAXED TO [facility]. Referral Priority Stat Medications Medication SIG [...] W/U Status Risk Notes Problem Lumbar radiculopathy (769948149) Lumbar radiculopathy (M54.16) Active confirmed Problem 487691724 Arthrodesis status (Z98.1) Active confirmed Problem [id number] Left foot drop (M21.372) Active confirmed Problem Displacement of lumbar intervertebral disc without myelopathy (62805673) Bulging of lumbar intervertebral disc (M51.26) Active confirmed Problem Spinal stenosis of lumbar region (75854853) Foraminal stenosis of lumbar region (M48.061) Active confirmed Problem 521482840 Encounter for other orthopedic aftercare (Z47.89) Active confirmed Problem Other intervertebral disc degeneration, 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) Active confirmed Vital Signs Height 5'7 in 04/15/2024 Weight 190 lbs 04/15/2024 BMI 29.75 04/15/2024 Encounters Encounter Location Date Provider Diagnosis [facility] [place] [address] [place] [address] 04/15/2024 David Diglio Lumbar radiculopathy M54.16 ; Bulging of lumbar intervertebral disc M51.26 and Foraminal stenosis of lumbar region M48.061 [facility] Outpatient [address] [place], [place] [id number] 06/08/2024 [facility] Foraminal stenosis o f lumbar region M48.061 ; Bulging of lumbar intervertebral disc M51.26 and Other intervertebral disc degeneration, lumbar region with discogenic back pain and lower extremity pain M51.362 [facility] Office [address] [facility] [place] [address] [place] [address] 08/13/2024 [facility] Encounter for other orthopedic aftercare Z47.89 [...] Date Lumbar spine, 4v flex ext - 27440 2023 Lumbar spine 2v ap and lat - 61617 08/13 Surgery Scheduling 03/17/2024 DME - Lumbar Support, Surgical OTS 04/15 Type and Cross Blood 2 units 04/15/2024 Future Test Test Name Order Date Chest 2 views - 01415 03/17/2024 CBC 03/17/2024 PT/PTT 03/17/2024 BMP 03/17/2024 MRSA (Bilateral Nares) PCR 03/17/2024 EKG 03/17/2024 Insurance Providers Payer Name Payer Address Payer Phone Subscriber Number Group Number Insured Name Patient Relationship to Insured Coverage Start Date Coverage End Date [place] [address] [place] [address] [id number] JORGE GILL Spouse - patient is the spouse of the insured Medicare [address] [address] [place] [address] [id number] RASHID GILL Self - patient is the insured [facility] [address] [address] [place] [address] [id number] JORGE GILL Spouse - patient is the [...]
--- OUTSIDE RECORDS SUMMARY | 2025-03-12 11:37 | XMS_ITS | Clinical Summary ---
Author Organization [facility] Address [address] [place] [address] Care Team Providers Care Trailer Rental Clerk Name Role Phone Unavailable Primary Care Provider [...] patient's age to complete this topic Insurance MEDICARE [facility]
--- OUTSIDE RECORDS SUMMARY | 2025-03-12 11:37 | XMS_ITS | Encounter Summary ---
Author Organization [facility] Address [address] [place] [address] Phone Care Team Providers Care Falafel Cart Cook Name Role Phone Kymberly Gilmore MD Primary Care Provider [phone] Yossi Hunter MD Unavailable [phone] Encounter Details Date Type Department Care Team (Late st Contact Info) Description 01/22/2025 Scanned Document [facility] [address] [place] [address] Scanning, Generic Provider Social History Tobacco Use [...] Description 03/15/2025 1:20 PM EDT Office Visit [place] [address] [facility] [address] [place] [address] Tatyana Ohara MD [address] [facility] 2, [place] [address] [place] [address] documented as of this encounter Visit Diagnoses Not on filedocumented in this encounter Care Teams Falafel Cart Cook Relationship Specialty Start Date End Date Kymberly Gilmore MD PCP - General Family Medicine 05/27/23 Yossi Hunter MD [address] [facility], [facility] [address] [place] [address] Tipple Operator Cardiology 06/17/23 documented as of this encounter
--- OUTSIDE RECORDS SUMMARY | 2025-03-12 11:37 | XMS_ITS | Encounter Summary ---
Author Organization [facility] [employer] [facility] tem Address [id number] [address] [place] [address] Care Team Providers Care Solderer Torch Name Role Phone Kymberly Gilmore MD Primary Care Provider [phone] Encounter Details Date Type Department Care Team (Late st Contact Info) Description 11/28/2022 Orders Only [facility] [address] [place] [address] Kymberly Gilmore MD [address] [place] [address] Social History Tobacco Use Types [...] on filedocumented in this encounter Care Teams Solderer Torch Relationship Specialty Start Date End Date Kymberly Gilmore MD [address] [place] [address] PCP - General Family Medicine 02/03/19 documented as of this encounter
--- OUTSIDE RECORDS SUMMARY | 2025-03-12 11:37 | XMS_ITS | Patient Health Record ---
Author Organization [facility] Address [address] [place] [address] Care Team Providers Care Linux Vmware Administrator Name Role Phone Kymberly Gilmore Primary Care Provider Abhijit Zhang [phone] Results Component Value Reference Range Notes XR FOOT DELFINO 2V (Not yet revi ewed by provider) Interpretation: Performing Lab: Notes/Report: Source Facility: [place] [address] XRay Report Signed Patient: RASHID BOOTH MR#: [id number] : 1970 Acct:[id number] Age/Sex: 53 / F ADM Date: 06/01/24 Loc: [facility] Attending Dr: Abhijit Weeks D.P.M. Ordering Physician: Abhijit Weeks D.P.M. Date of Service: 06/01/24 Procedure(s): XR foot DELFINO 2V Accession Number(s): [id number] cc: Kymberly Gilmore M.D.; Abhijit Weeks D.P.M. [place] [address] Patient Name: RASHID BOOTH MRN: [id number] date: 1970 Sex: F Assigned Patient [facility]: [facility] Current Patient Location: RAD Accession/Order Number: [id number] Exam Date: 06/01/2024 15:20 Report Date: 06/02/2024 [...] M.D. Signed By: 06/02/241334 DD/ 32 TD/TT: Sliver Chopper: XR ankle DELFINO 2V (Not yet rev iewed by provider) Interpretation: Performing Lab: Notes/Report: Source Facility: [place] [address] XRay Report Signed Patient: RASHID BOOTH MR#: [id number] : 1970 Acct:[id number] Age/Sex: 53 / F ADM Date: 06/01/24 Loc: RAD Attending Dr: Abhijit Weeks D.P.M. Ordering Physician: Abhijit Weeks D.P.M. Date of Service: 06/01/24 Procedure(s): XR ankle DELFINO 2V Accession Number(s): [id number] cc: Kymberly Gilmore M.D.; Abhijit Weeks D.P.M. 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 Problem Arthralgia of the ankle and/or foot (473136338) Pain in left ankle and joints of left foot (M25.572) Active confirmed Problem Pain in right foot (865813379513176) Pain in right foot (M79.671) Active confirmed Encounters Encounter Location Date Provider Diagnosis [facility] (PODI[facility]) [address] [place] [address] [place] [address] 06/01/2024 Abhijit Weeks Pain in left ankle [...] ACCESS PPO PLUS LOCAL PLAN [address] [place] [address] [id number] Phillip Rashid guillen Self - patient is the insured 5 [place]IC[place] [address] [id number] Phillip wilmer, Rashid Self - patient is the insured 3
--- OUTSIDE RECORDS SUMMARY | 2025-03-12 11:37 | XMS_ITS | Encounter Summary ---
Author Organization [facility] Address [address] [place] [address] Care Team Providers Care Special Needs Teacher Name Role Phone Kymberly Gilmore MD Primary Care Provider [phone] Source Comments In the event this information is protected by the Federal Confidentiality of Alcohol and Drug AbusePatient Records regulations: The Federal rules restrict any use of the information to criminally investigate or prosecute any alcohol or drug abuse patient.[facility] Encounter Details Date Type Department Care Team (Latest Contact Info) Description 02/03/2025 H&P External-NonCCF Provider, External, PA-C Do not enter address information under generic External Provider. Social History Tobacco Use Types Packs/Day Years Used Date Smoking Tobacco: Every Day Cigarettes Passive Smoke Exposure: Current Smokeless Tobacco: Never Alcohol Use Standard Drinks/Week Comments Not Currently 0 (1 standard drink = 0.6 oz pur e alcohol) PHQ-2 Answer Date Recorded PHQ-2 score 6 06/07/2019 Area Deprivation Index Answer Date Madhu rded National Score (1-100), lower number is lower ri sk Not on file 05/03/2020 State Score (1-10), lower number is lower risk N ot on file 05/03/2020 Data from: https://www.neighborhoodatlas.medicine.[facility].edu/. Last address used for calculation Not [...] filedocumented in this encounter Care Teams Special Needs Teacher Relationship Specialty Start Date End Date Kymberly Gilmore MD [address] [place] [phone] PCP - General Family Medicine 10/11/20 documented as of this encounter
--- OUTSIDE RECORDS SUMMARY | 2025-03-12 11:37 | XMS_ITS | Encounter Summary ---
Author Organization [facility] Address [address] [place] [address] Care Team Providers Care Floor Technician Name Role Phone Kymberly Gilmore MD Primary Care Provider [phone] Source Comments In the event this information is protected by the Federal Confidentiality of Alcohol and Drug AbusePatient Records regulations: The Federal rules restrict any use of the information to criminally investigate or prosecute any alcohol or drug abuse patient.[facility] Encounter Details Date Type Department Care [...] N ot on file 05/03/2020 Data from: https://www.neighborhoodatlas.medicine.[facility].edu/. Last address used for calculation Not on [...] on filedocumented in this encounter Care Teams Floor Technician Relationship Specialty Start Date End Date Kymberly Gilmore MD [address] [place] [phone] PCP - General Family Medicine 10/11/20 documented as of this encounter
--- OUTSIDE RECORDS SUMMARY | 2025-03-12 11:37 | XMS_ITS | Clinical Summary ---
Author Organization [facility] Address [address] [place], [place] [id number] Care Team Providers Care Locker Attendant Name Role Phone Kymberly Gilmore MD Primary Care Provider [phone] Allergies Active Allergy Reactions Criticality Noted Date Comments Acetaminophen-Codeine Intolerance 09/06/2015 Sleep apnea Codeine Other: See Comments Low 02/02/2025 Intolerance, sleep apnea Venlafaxine Analogues Unknown 2020 Nsaids (Non-Steroidal [...] gastric bypass 10/11/2020 Gastric outflow obstruction 09/06/2015 Encounters Date Type Department Care Team Description 02/03/2025 H&P External-NonCCF Provider, TATIANA Tamayo 02/03/2025 H&P External-NonCCF Provider, ExternalTATIANA 02/02/2025 Abstract Hematology/Oncology [address] [place] [address] [place] [address] Byron Neely MD from Last 3 Months Immunizations Immunization Administration Dates Next Due COVID-19 original vaccine, a ge 12+ yr, monovalent (SAVORTEX - PURPLE TOP) 08/22/2020,08/02/2020 hepatitis B (HepB) [...] Passive Smoke Exposure: Current Smokeless Tobacco: Never Tobacco Cessation:Ready to Q uit: No; Counseling Given: No Alcohol Use Standard Drinks/Week Comments Not Currently 0 (1 standard drink = 0.6 oz pur e alcohol) PHQ-2 Answer Date Recorded PHQ-2 score 6 06/07/2019 Area Deprivation Index Answer Date Madhu rded National Score (1-100), lower number is lower ri sk 74 02/08/2025 State Score (1-10), lower number is lower risk 6 02/08/2025 Data from: https://www.neighborhoodatlas.medicine.[facility]/. Last address used for calculation [address] 02/08/2025 Comments No Sex and Gender Information Value [...] 2013 Fecal Occult Blood 2013 Sigmoidoscopy 2013 Pneumococcal Vaccine: 50+ (1 of 1 - PCV) 2018 Shingrix Vaccine (1 of 2) 2018 Mammogram Screening 02/04/2020 02/03/2019, 5 Lipid Screening 02/04/2024 02/03/2019 Covid-19 Vaccine (2024-2 6 season) 2025 08/22/2020, 08/02/2020 Influenza Vaccine (#1) 2025 Diabetes Screening 01/21/2028 01/20/2025, 0 01/07/2025, 06/11/2024, Additional history exists Hepatitis B Vaccine Completed 03/29/2005, 10/12/1997, 06/10/1997, Additional history exists Procedures Procedure Name Priority Date/Time Associated Diagnosis Comments EXTERNAL LAB 02/07/2025 10:16 AM EDT EXTERNAL LAB 02/04/2025 9:06 AM EDT EXTERNAL LAB 02/03/2025 11:10 AM EDT EXTERNAL LAB 02/03/2025 11:10 AM EDT EXTERNAL PROCEDURE 02/03/2025 10 :57 AM EDT EXTERNAL CARDIOLOGY 02/03/2025 1 0:57 AM EDT EXTERNAL IMAGING 02/03/2025 10:5 7 AM EDT EXTERNAL LAB 02/03/2025 10:57 AM EDT EXTERNAL LAB 02/03/2025 10:57 AM EDT EXTERNAL PROCEDURE 02/03/2025 10 :57 AM EDT EXTERNAL LAB 02/03/2025 10:57 AM EDT EXTERNAL CARDIOLOGY 02/03/2025 1 0:57 AM EDT EXTERNAL PROCEDURE 02/03/2025 10 :57 AM EDT EXTERNAL IMAGING 02/03/2025 10:5 7 AM EDT EXTERNAL LAB 02/03/2025 10:37 AM EDT EXTERNAL LAB 02/03/2025 10:37 AM EDT EXTERNAL LAB 02/03/2025 10:37 AM EDT EXTERNAL CARDIOLOGY 02/03/2025 1 0:37 AM EDT EXTERNAL IMAGING 02/03/2025 10:3 7 AM EDT EXTERNAL LAB 02/03/2025 10:37 AM EDT EXTERNAL IMAGING 02/03/2025 10:3 7 AM EDT EXTERNAL IMAGING 02/03/2025 10:3 7 AM EDT EXTERNAL LAB 02/03/2025 10:37 AM EDT EXTERNAL CARDIOLOGY 02/03/2025 1 0:37 AM EDT COMPREHENSIVE METABOLIC PANEL Routine 11/08/2020 1:52 PM EDT Megaloblastic anemia due to vitamin B12 deficiency Iron deficiency anemia due to chronic blood loss History of Linsey-en-Y gastric bypass Other vitamin B12 deficiency anemia from Last 3 Months or Most Recently Relevant to Health Maintenance Results * EXTERNAL LAB (02/07/2025 10:16 AM EDT) Only the most recent of12 resultswithin the time period is included. us External Provider PA-C LABORATORY Final Res ult * EXTERNAL PROCEDURE (02/03/2025 10:57 AM EDT) us External Provider PA-C PROCEDURE Final Res ult * EXTERNAL CARDIOLOGY (02/03/2025 10:57 AM EDT) us External Provider PA-C CARDIOLOGY Final Res ult * EXTERNAL IMAGING (02/03/2025 10:57 AM EDT) Anatomical Region Laterality Modality Other us External Provider PA-C RADIOLOGY Final Res ult * EXTERNAL PROCEDURE (02/03/2025 10:57 AM EDT) us External Provider PA-C PROCEDURE Final Res ult * EXTERNAL CARDIOLOGY (02/03/2025 10:57 AM EDT) us External Provider PA-C CARDIOLOGY Final Res ult * EXTERNAL PROCEDURE (02/03/2025 10:57 AM EDT) us External Provider PA-C PROCEDURE Final Res ult * EXTERNAL IMAGING (02/03/2025 10:57 AM EDT) Anatomical Region Laterality Modality Other us External Provider PA-C RADIOLOGY Final Res ult * EXTERNAL CARDIOLOGY (02/03/2025 10:37 AM EDT) us External Provider PA-C CARDIOLOGY Final Res ult * EXTERNAL IMAGING (02/03/2025 10:37 AM EDT) Anatomical Region Laterality Modality Other us External Provider PA-C RADIOLOGY Final Res ult * EXTERNAL IMAGING (02/03/2025 10:37 AM EDT) Anatomical Region Laterality Modality Other us External Provider PA-C RADIOLOGY Final Res ult * EXTERNAL IMAGING (02/03/2025 10:37 AM EDT) Anatomical Region Laterality Modality Other us External Provider PA-C RADIOLOGY Final Res ult * EXTERNAL CARDIOLOGY (02/03/2025 10:37 AM EDT) us External Provider PA-C CARDIOLOGY Final Res ult from Last 3 Months Insurance [employer] ACCESS PPO MEDICARE Care Teams Locker Attendant Relationship Specialty Start Date End Date Kymberly Gilmore MD [address] [place] [address] PCP - General Family Medicine 10/11/20
--- OUTSIDE RECORDS SUMMARY | 2025-03-12 11:37 | XMS_ITS | Patient Health Record ---
Author Organization [employer] Address [address] [facility] [address], [place] [address] Care Team Providers Care Pet Sitter Name Role Phone Mando BURKETT, Kymberly Primary Care Provider Unavailab Black Varma Unavailable [phone] Reason For Referral No Information Plan Of Treatment No Information Insurance Providers Payer Name Payer Address Payer Phone Subscriber Number Group Number Insured Name Patient Relationship to Insured Coverage Start Date Coverage End Date [facility] [address] [place] [phone] [id number] Trev Dias Spouse - patient is the spouse of the insured [place] Access Value [address] [place] [address] [phone] [id number] Candy Dias Self - patient is the insured
--- OUTSIDE RECORDS SUMMARY | 2025-03-12 11:37 | XMS_ITS | Encounter Summary ---
Author Organization [facility] Address [address] [place] [address] Care Team Providers Care Professional Services Consultant Name Role Phone Kymberly Gilmore MD Primary Care Provider [phone] Source Comments In the event this information is protected by the Federal Confidentiality of Alcohol and Drug AbusePatient Records regulations: The Federal rules restrict any use of the information to criminally investigate or prosecute any alcohol or drug abuse patient.[facility] Encounter Details Date Type Department Care Team (Late st Contact Info) Description 02/02/2025 Abstract Hematology/Oncology [facility] [place] [address] Byron Neely MD [address] [place] [address] [place] [address] Social History Tobacco Use Types Packs/Day Years [...] N ot on file 05/03/2020 Data from: https://www.neighborhoodatlas.medicine.[facility].edu/. Last address used for calculation Not [...] on filedocumented in this encounter Care Teams Professional Services Consultant Relationship Specialty Start Date End Date Kymberly Gilmore MD [address] [place] [phone] PCP - General Family Medicine 10/11/20 documented as of this encounter
--- OUTSIDE RECORDS SUMMARY | 2025-03-12 11:37 | XMS_ITS | Encounter Summary ---
Author Organization [facility] Address [address] [place] [address] Phone Care Team Providers Care Amf Mechanic Name Role Phone Kymberly Gilmore MD Primary Care Provider Yosis Hunter MD Unavailable [phone] Reason for Visit * Reason Onset Date Comments Med Refill 03/11/2025 Encounter Details Date Type Department Care Team (Late st Contact Info) Description 03/11/2025 Telephone [facility] [address] [facility] [address] [place] [address] Kelsey Gonzalez LPN Med Refill Social History Tobacco Use Types Packs/Day Years [...] on file documented as of this encounter Miscellaneous Notes * Telephone Encounter - Kelsey Gonzalez LPN - 03/11/2025 1:58 PM EDT Pt. Left vm Coreg refills needed, almost out of supply from hospital discharge. Summary reviewed, to take 3.125mg BID. Pending OV with Dr. Ohara 03/15/25. Robbie documented in this encounter Plan of Treatment Upcoming Encounters Date Type Department Care Team (Late st Contact Info) Description 03/15/2025 1:20 PM EDT Office Visit [facility] [address] [facility] [address] [place] [phone] Tatyana Ohara MD [address] [facility] [address] [place], [place] [phone] documented as of this encounter Visit Diagnoses Diagnosis Essential hypertension Unspecified essential hypertension documented in this encounter Care Teams Amf Mechanic Relationship Specialty Start Date End Date Kymberly Gilmore MD PCP - General Family Medicine 05/27/23 Yossi Hunter MD [address] [facility] Medical Office [facility], [address] [place] [address] Vice President Residential Solar Sales Cardiology 06/17/23 documented as of this encounter
--- OUTSIDE RECORDS SUMMARY | 2025-03-12 11:37 | XMS_ITS | Encounter Summary ---
Author Organization [facility] Address [address] [place] [address] Care Team Providers Care Chiseler Head Name Role Phone Kymberly Gilmore MD Primary Care Provider [phone] Source Comments In the event this information is protected by the Federal Confidentiality of Alcohol and Drug AbusePatient Records regulations: The Federal rules restrict any use of the information to criminally investigate or prosecute any alcohol or drug abuse patient.[facility] Encounter Details Date Type Department [...] N ot on file 05/03/2020 Data from: https://www.neighborhoodatlas.medicine.[facility].edu/. Last address used for calculation Not on [...] on filedocumented in this encounter Care Teams Chiseler Head Relationship Specialty [place] [address] [place] [phone] PCP - General Family Medicine 10/11/20 documented as of this encounter
--- OUTSIDE RECORDS SUMMARY | 2025-03-12 11:37 | XMS_ITS | Encounter Summary ---
Author Organization [facility] Address [address] [place] [address] Phone Care Team Providers Care Front Elevator Operator Name Role Phone Kymberly Gilmore MD Primary Care Provider [phone] Yossi Hunter MD Unavailable [phone] Encounter Details Date Type Department Care Team (Late st Contact Info) Description 02/25/2025 Scanned Document [facility] [address] [place] [phone] Scanning, Generic Provider Social History Tobacco Use [...] Description 03/15/2025 1:20 PM EDT Office Visit [place] [id number] [facility] [address] [place] [address] Tatyana Ohara MD [address] [facility] [address] [place] [address] documented as of this encounter Visit Diagnoses Not on filedocumented in this encounter Care Teams Front Elevator Operator Relationship Specialty Start Date End Date Kymberly Gilmore MD PCP - General Family Medicine 05/27/23 Yossi Hunter MD [address] [facility], [facility] [address] [place] [address] Mechanical Repair Worker Cardiology 06/17/23 documented as of this encounter
--- OUTSIDE RECORDS SUMMARY | 2025-03-12 11:37 | XMS_ITS | Clinical Summary ---
Author Organization [employer] Address [id number] [address] [place] [address] Care Team Providers Care Color Specialist Name Role Phone Kymberly Gilmore MD Primary Care Provider [phone] Allergies Active Allergy Reactions Criticality Noted Date [...] Department Care Team Description 01/20/2025 Lab Requisition [facility] - Lab [address] [place] [address] Kymberly Gilmore MD Hypo-osmolality and hyponatremia; Anemia, unspecified; Hypokalemia 01/07/2025 Lab Requisition [facility] - Lab [address] [place] [address] Kymberly Gilmore MD Hypo-osmolality and hyponatremia from [...] Screening 12/11/2023 12/10/2022 COVID-19 Vaccine (4 - 2024-2 6 season) 2025 05/13/2021, 08/22/2020, 08/02/2020 Influenza Vaccine 01/24/2025 05/13/2021 [...] - 11 x10E9/L 01/20/2025 1:01 PM EDT [facility] RBC Count 3.83 3.8 - 5.2 X10E12/L 01/20/2025 1:01 PM EDT [facility] Hemoglobin 10.5(L) 11.7 - 15.5 g/dL 01/20/2025 1:01 PM EDT [facility] Hematocrit 32.9(L) 35 - 47 % 01/20/2025 1:01 PM EDT [facility] MCV 86 80 - 100 fL 01/20/2025 1:01 PM EDT [facility] MCH 27.3 27 - 34 pg 01/20/2025 1:01 PM EDT [facility] MCHC 31.8(L) 32 - 36 g/dL 01/20/2025 1:01 PM EDT [facility] RDW 20.7(H) 11.5 - 15 % 01/20/2025 1:01 PM EDT [facility] Platelet Count 283 150 - 450 X10E9/L 01/20/2025 1:01 PM EDT [facility] MPV 7.8 7 - 12 fL 01/20/2025 1:01 PM EDT [facility] Neutrophils % 63.6 % 01/20/2025 1:01 PM EDT [facility] Lymphocytes % 27.1 % 01/20/2025 1:01 PM EDT [facility] Monocytes % 7.4 % 01/20/2025 1:01 PM EDT [facility] Eosinophils % 1.4 % 01/20/2025 1:01 PM EDT [facility] Basophils % 0.5 % 01/20/2025 1:01 PM EDT [facility] Neutrophils Absolute (A) 3.0 1.5 - 6.6 10*3/uL 01/20/2025 1:01 PM EDT [facility] Lymphocytes Absolute 1.3 1.0 - 3.5 10*3/uL 01/20/2025 1:01 PM EDT [facility] Monocytes Absolute 0.3 0.0 - 0.9 10*3/uL 01/20/2025 1:01 PM EDT [facility] Eosinophils Absolute 0.1 0.0 - 0.4 10*3/uL 01/20/2025 1:01 PM EDT [facility] Basophils Absolute 0.0 0.0 - 0.2 10*3/uL 01/20/2025 1:01 PM EDT [facility] Differential Type AUTOMATED DIFFERENTIAL 01/20/2025 1:01 PM EDT [facility] Blood Venous blood / Unknown 01/20/2025 11:42 AM EDT 01/20/2025 12:49 PM EDT us Kymberly Gilmore MD LAB BLOOD ORDERABLES Final Res ult [facility] [address] [place] [address], * (ABNORMAL) Basic metabolic panel (01/20/2025 11:42 AM EDT) Only the most recent of2 resultswithin the time period is included. SODIUM 139 134 - 146 mmol/L 01/20/2025 2:00 PM EDT [facility] POTASSIUM 3.6 3.5 - 5.0 mmol/L 01/20/2025 2:00 PM EDT [facility] CHLORIDE 105 98 - 109 mmol/L 01/20/2025 2:00 PM EDT [facility] CARBON DIOXIDE 25 22 - 32 mmol/L 01/20/2025 2:00 PM EDT [facility] ANION GAP 9 5 - 15 mmol/L 01/20/2025 2:00 PM EDT [facility] BLOOD UREA NITROGEN <5(L) 5 - 23 mg/dL 01/20/2025 2:00 PM EDT [facility] CREATININE 0.66 0.40 - 1.00 mg/dL 01/20/2025 2:00 PM EDT [facility] Comment:METHOD TRACEABLE TO IDMS STANDARD GLUCOSE 123(H) 65 - 99 mg/dL 01/20/2025 2:00 PM EDT [facility] CALCIUM 8.5 8.5 - 10.5 mg/dL 01/20/2025 2:00 PM EDT [facility] EGFR Non-Race Dependent >90 >=60 ml/min/1.7 3sq.m 01/20/2025 2:00 PM EDT [facility] Comment: eGFR not reported due to non-numeric value for Creatinine. EGFR not calculated due to patient's gender not being defined. Reported eGFR is based on the CKD-EPI 2020 equation that does not use a race coefficient. Blood Venous blood / Unknown 01/20/2025 11:42 AM EDT 01/20/2025 12:49 PM EDT us Kymberly Gilmore MD LAB BLOOD ORDERABLES Final Res ult [facility] [address] [place] [address], from Last 3 Months Insurance MEDICARE ANTHEM Care Teams Color Specialist Relationship Specialty Start Date End Date Kymberly Gilmore MD [address] [place] [address] PCP - General Family Medicine 02/03/19
--- OUTSIDE RECORDS SUMMARY | 2025-03-12 11:37 | XMS_ITS | Encounter Summary ---
Author Organization [facility] Address [address] [place] [address] Phone Care Team Providers Care Base Wad Operator Adjuster Name Role Phone Kymberly Gilmore MD Primary Care Provider [phone] Yossi Hunter MD Unavailable [phone] Encounter Details Date Type Department Care Team (Late st Contact Info) Description 01/26/2025 Scanned Document [facility] [address] [place] [phone] Scanning, Generic Provider Social History Tobacco Use [...] Description 03/15/2025 1:20 PM EDT Office Visit [place] [id number] [facility] [address] [place] [address] Tatyana Ohara MD [address] [facility] [address] [place] [address] documented as of this encounter Procedures Procedure Name Priority Date/Time Associated Diagnosis Comments ECHOCARDIOGRAM 01/26/2025 documented in this encounter Results * Echocardiogram (01/26/2025) Narrative 01/26/2025 Ordered by an unspecified provider. us Generic Provider Scanning CV ECHO PROCEDURES Fin al Result documented in this encounter Visit Diagnoses Not on filedocumented in this encounter Care Teams Base Wad Operator Adjuster Relationship Specialty Start Date End Date Kymberly Gilmore MD PCP - General Family Medicine 05/27/23 Yossi Hunter MD [address] [facility] Medical Office [address], [address] [place] [address] Net Developer Consultant Cardiology 06/17/23 documented as of this encounter
--- OUTSIDE RECORDS SUMMARY | 2025-03-12 11:37 | XMS_ITS | Clinical Summary ---
Author Organization [facility] Address [address], [address] [place] [address] Care Team Providers Care Band Presser Name Role Phone Kymberly Gilmore MD Primary Care Provider [phone] Allergies Active Allergy Reactions Criticality Noted Date [...] mouth at bedtime Active Cholecalciferol (VITAMIN D3) 00377 units CAPS Take by mouth Twice a [...] migh t be different from the original. [facility] Problem Noted [...] Used Date Smoking Tobacco: Former Cigarettes 1 10.8 S tarted: 2014 Smokeless Tobacco: Never Tobacco Cessation:Counseling Given: Not Answered Comments:started at age 13 for 4 yrs, quit then started back in 2014 Alcohol Use Standard Drinks/Week Comments Yes 0 (1 standard drink = 0.6 oz pur e alcohol) socially [facility] Utilities Answer Date Recorded In the past 12 months has th e dondeEsta™, gas, oil, or water [employer] threatened to shut off services in your [...] in a halfway (including now)? No 12/30/2023 Housing Stability Vital Sign Answer Jose e Recorded In the last 12 months, was t here a time when you were not able to pay the mortgage or rent on time? No 06/09/2024 In the past 12 months, how m any times have you moved where you were living? 0 06/09/2024 At any time in the past 12 m [facility], were you homeless or living in a halfway (including now)? No 06/09/2024 Food Insecurity Answer [...] 2008 FIT/FOBT: Average risk 2013 Fecal-DNA (Cologuard): [place] ge risk 2013 Sigmoidoscopy/CT colonography 2013 Pneumococcal [...] this topic Medical Devices Implanted Type Area Oil Scout Device Identifier Shelf Expiration Date Model / Serial / Lot Floseal Hemostat Matrx 5ml Needle Free Implanted:Qty : 1 on 02/09/2018 by Ronal Matos MD at [facility] Bone/Gr aft/Tis bladimir/Hum an/Synt h N/A: Spine Lumbar Voya.ge BETHEL-PMM 06/10/2019 [id number] / / [id number] Clip Braided 360 Catheter Resolution Ultra - [id number] Implanted:Qty : 1 on 01/07/2024 by Ricki De La Cruz MD at [facility] N/A: Other [employer]- [id number] 07/22/2026 [id number] / / [id number] Description:Clip placed at G J junction Clip Hemostasis Mantis 2.8mm X 235cm - [id number] Implanted:Qty : 2 on 01/07/2024 by Ricki De La Cruz MD at [facility] N/A: Other [employer]WD [id number] 05/09/2026 [id number] / / [id number] Description:Clip placed at G J junction Allograft [place] 50x25 Mm 24 Cc Bioadapt - [id number] Implanted:Qty : 1 on 06/08/2024 by Jovnaa Guardado MD at [facility] N/A: Spine Lumbar [employer] 01/06/2027 [id number] / [id number] / [id number] Set Screw 5.5-6.0 - [id number] Implanted:Qty : 4 on 06/08/2024 by Jovana Guardado MD at [facility] N/A: Spine Lumbar [employer] [id number] / / Screw Poly Solid 6.5x40 - [id number] Implanted:Qty : 2 on 06/08/2024 by Jovana Guardado MD at [facility] N/A: Spine Lumbar [employer] [id number] / / Screw Poly Solid 6.5x45 - [id number] Implanted:Qty : 2 on 06/08/2024 by Jovana Guardado MD at [facility] N/A: Spine Lumbar [employer] [id number] / / Dhaval Ti Prebent 5.5x35 - [id number] Implanted:Qty : 2 on 06/08/2024 by Jovana Guardado MD at [facility] N/A: Spine Lumbar [employer] [id number] / / Insurance MEDICARE Member Subscriber Plan / Payer (Ef fective 2022-Present) Name:Candy Botoh Relation to Subscriber:Self Name:Candy Booth Payer ID:Not on file Group ID:Not on file Type:Not on file Address: [address] MEDICARE MEDICARE Advance Directives Documents on File Type Date Recorded Patient Railroad Wheels And Axle Inspector Expl anation ACP-Advance Directive 10/19/2017 4:34 PM [...] 8:17 PM 10/19/2017 8:31 AM Care Teams Band Presser Relationship Specialty Start Date End Date Kymberly Gilmore MD PCP - General Family Medicine 10/18/17
--- OUTSIDE RECORDS SUMMARY | 2025-03-12 11:38 | XMS_ITS | Encounter Summary ---
Author Organization [facility] Address [address] [place] [address] Phone Care Team Providers Care Biofuels Product Development Manager Name Role Phone Kymberly Gilmore MD Primary Care Provider [phone] Yossi Hunter MD Unavailable [phone] Encounter Details Date Type Department Care Team (Late st Contact Info) Description 01/25/2025 Scanned Document [facility] [address] [place] [id number] Scanning, Generic Provider Social History Tobacco Use [...] Description 03/15/2025 1:20 PM EDT Office Visit [place] [id number] [address] Tatyana Ohara MD [address] [facility] [address] [place] [address] Scheduled Orders Name Type Priority Associated Diagnoses Orde r Schedule Ultrasound- OnBase Scan Imaging O rdered: 01/25/2025 documented as of this encounter Visit Diagnoses Not on filedocumented in this encounter Care Teams Biofuels Product Development Manager Relationship Specialty Start Date End Date Kymberly Gilmore MD PCP - General Family Medicine 05/27/23 Yossi Hunter MD [address] [facility] [address] [facility] [address] [place] [address] Business Operations Director Cardiology 06/17/23 documented as of this encounter
--- OUTSIDE RECORDS SUMMARY | 2025-03-12 11:38 | XMS_ITS | Clinical Summary ---
Author Organization [facility] Address [address] [place] [address] Phone Care Team Providers Care Industrial Relations Director Name Role Phone Kymberly Gilmore MD Primary Care Provider [phone] Yossi Hunter MD Unavailable [phone] Allergies Active Allergy Reactions Criticality Noted Date [...] 90 tablet 3 4 05/07/20 25 Active carvedilol (Coreg) 3.125 mg tabletIndications :Essential hypertension Take 1 tablet (3.125 mg) by mouth 2 times daily (morning and late afternoon). 180 tablet 3 5 03/11/20 26 Active carvedilol (Coreg) 3.125 mg tablet Take 1 tablet (3.125 mg) by mouth 2 times daily (morning and late afternoon). 5 03/11/20 25 Discontinu ed(Reorder ) Active Problems Problem Noted Date Diagnosed Date Pre-op examination 04/07/2024 Essential hypertension 05/27/2023 BMI 32.0-32.9,adult 05/27/2023 Smoker 05/27/2023 Shortness of breath 05/27/2023 Heart valve disease 05/27/2023 Dizziness 05/27/2023 Dilation of aorta 05/27/2023 Encounters Date Type Department Care Team Description 03/11/2025 Telephone [facility] [address] [address] Kelsey Gonzalez LPN Med Refill 02/25/2025 Scanned Document [facility] [address] [place] [phone] Scanning, Generic Provider 02/01/2025 Scanned Document [facility] [address] [place] [id number] Scanning, Generic Provider 01/31/2025 Scanned Document [facility] [address] [place] [phone] Scanning, Generic Provider 01/26/2025 Scanned Document [facility] [address] [place] [address] Scanning, Generic Provider 01/25/2025 Scanned Document [facility] [address] [place] [address] Scanning, Generic Provider 01/22/2025 Scanned Document [facility] [address] [place] [address] Scanning, Generic Provider from Last 3 Months [...] Description 03/15/2025 1:20 PM EDT Office Visit [facility] [address] [address] Tatyana Ohara MD [address] [place] [address] Health Maintenance Due Date Last [...] 2008 Zoster Vaccines (1 of 2) 2018 Influenza Vaccine (#1) 2024 , 04/28/2020, 03/06/2016 COVID-19 Vaccine ( season) 2025 05/13/2021, 08/22/2020, 08/02/2020 MMR Vaccines Completed 05/16/1997 Hepatitis B Vaccines [...] Months Insurance MEDICARE PART A AND B MEDICARE PART A AND B Care Teams Industrial Relations Director Relationship Specialty Start Date End Date Kymberly Gilmore MD PCP - General Family Medicine 05/27/23 Yossi Hunter MD [address] [facility] [address] [place] [address] Trial Paralegal Cardiology 06/17/23
--- OUTSIDE RECORDS SUMMARY | 2025-03-12 11:38 | XMS_ITS | Encounter Summary ---
Author Organization [facility] Address [address], [address] [place] [address] Care Team Providers Care Historical Manuscripts Curator Name Role Phone Kymberly Gilmore MD Primary Care Provider Encounter Details Date Type Department Care Team (Late st Contact Info) Description 12/29/2023 Direct Admit Orders [facility] [address] [place] [address] [phone] Betty Richards MD [address] [place] [address] [phone] Social History Tobacco Use Types Packs/Day Years Used Date Smoking Tobacco: Every Day Cigarettes 1 10.8 Started: 2014 Smokeless Tobacco: Never Comments:started at age 13 f or 4 yrs, quit then started back in 2014 Alcohol Use Standard Drinks/Week Comments No 0 (1 standard drink = 0.6 oz pur e alcohol) [facility] Utilities Answer Date Recorded In the past 12 months has e electric, gas, oil, or water [employer] threatened to shut off services in your [...] place to sleep or slept in a [place] (including now)? No 12/30/2023 Food Insecurity Answer [...] documented as of this encounter Care Teams Historical Manuscripts Curator Relationship Specialty Start Date End Date Kymberly Gilmore MD PCP - General Family Medicine 10/18/17 documented as of this encounter
--- OUTSIDE RECORDS SUMMARY | 2025-03-12 11:38 | XMS_ITS | Clinical Summary ---
Author Organization [facility] Address [address] [place] [address] Care Team Providers Care Tutoring Assistant Name Role Phone Kymberly Gilmore MD Primary Care Provider [phone] Allergies Active Allergy Reactions Criticality Noted Date Comments Gwen Villalpando,Other Low 12/10/2022 Other Reaction(s): Not available Intolerance, [...] 3 Active cholecalciferol (Vitamin D-3) 1.25 MG (18039 UT) capsule Twice a Week 3 Active [...] 01/11/2020 12:00 PM EDT Plan of Treatment Not on file Procedures Procedure Name Priority [...] - 9 mg/dL 01/29/2025 6:36 AM EDT [facility] Other 01/29/2025 5:10 AM EDT 01/29/2025 6:14 AM EDT us Martina Suarez MD LAB BLOOD ORDERABLES Final Resul t [facility] [address] [place] [address], [facility] [address] [phone] * PROTEIN ELECTRO, RANDOM URINE (01/29/2025 5:10 AM EDT) PROTEIN, TOTAL, URINE 5.7 Not Estab. mg/dL 02/01/2025 3:08 PM EDT [facility] ALBUMIN, URINE 34.0 . % 02/01/2025 3:08 PM EDT [facility] YBAUS-7-[id number], URINE 4.2 . % 02/01/2025 3:08 PM EDT [facility] IFOLM-4-FZVHSTZD, URINE 8.4 . % 02/01/2025 3:08 PM EDT [facility] BETA GLOBULIN, URINE 22.3 . % 02/01/2025 3:08 PM EDT [facility] GAMMA GLOBULIN, URINE 31.0 . % 02/01/2025 3:08 PM EDT [facility] M-SPIKE % Not Observed Not Observed % 02/01/2025 3:08 PM EDT [facility] PLEASE NOTE: Comment . 02/01/2025 3:08 PM EDT [facility] Comment: Protein electrophoresis scan will follow via computer, mail, or roller mill tender delivery. Performed at: [address] [id number] Fisher Clam: Marcelo Parikh PhD, Phone: [phone] Other 01/29/2025 5:10 AM EDT 01/29/2025 6:14 AM EDT Martina Suarez MD LAB BLOOD ORDERABLES Final Resul t Performing Organization Address [facility] Co de Phone Number [place] [phone], * Creatinine, urine, random (01/29/2025 5:10 AM EDT) CREATININE, URINE (RANDOM) 17.00 mg/dL 01/29/2025 6:36 AM EDT [facility] Comment:No reference range e stablished Other 01/29/2025 5:10 AM EDT 01/29/2025 6:14 AM EDT us Martina Saurez MD LAB URINE ORDERABLES Final Resul t Performing Organization Address [facility] Co de Phone Number [place] [phone], [facility] [address] [phone] * PROTEIN C ANTIGEN (01/29/2025 4:30 AM EDT) PROTEIN C ANTIGEN 70 60 - 150 % 02/04/2025 8:09 AM EDT [facility] Comment: Performed at: [address] [id number] Fisher Clam: Ab Giordano MD, Phone: [phone] Other 01/29/2025 4:30 AM EDT 01/29/2025 4:48 AM EDT us Martina Suarez MD LAB BLOOD ORDERABLES Final Resul t Performing Organization Address City/[facility] Co de Phone Number [place] [phone], * ANTITHROMBIN ACTIVITY (01/29/2025 4:29 AM EDT) ANTITHROMBIN ACTIVITY 97 75 - 135 % 01/31/2025 11:08 AM EDT [facility] Comment: Direct Xa inhibitor anticoagulants such as rivaroxaban, apixaban and edoxaban will lead to spuriously elevated antithrombin activity levels possibly masking a deficiency. Performed at: [address] [id number] Fisher Clam: Ab Giordano MD, Phone: [phone] Other 01/29/2025 4:29 AM EDT 01/29/2025 4:48 AM EDT Martina Suarez MD LAB BLOOD ORDERABLES Final Resul t Performing Organization Address [facility] Co de Phone Number [facility] [address] [place] [address], [place] * BETA 2 GLYCOPROTEIN I AB IGGAM (01/29/2025 4:29 AM EDT) BETA 2 GLYCOPROTEIN I AB, IGG <9 0 - 20 01/31/2025 3:08 PM EDT [facility] Comment:Result Units: GPI Ig G units BETA 2 GLYCOPROTEIN I AB, IGA <9 0 - 25 01/31/2025 3:08 PM EDT [facility] Comment:Result Units: GPI Ig A units BETA 2 GLYCOPROTEIN I AB, IGM <9 0 - 32 01/31/2025 3:08 PM EDT [facility] Comment: Result Units: GPI IgM units Performed at: [address] [id number] Fisher Clam: Marcelo Parikh PhD, Phone: [phone] Other Topography unknown / Unknown 01/29/2025 4:29 AM EDT 01/29/2025 4:48 AM EDT Martina Suarez MD LAB BLOOD ORDERABLES Final Resul t Performing Organization Address [facility] Co de Phone Number [facility] [address] [place] [address], [place] * PROTEIN C FUNCTIONAL (01/29/2025 4:29 AM EDT) PROTEIN C FUNCTIONAL 96 73 - 180 % 01/31/2025 11:08 AM EDT [facility] Comment: Performed at: - [address] [id number] Fisher Clam: Ab Giordano MD, Phone: [phone] Other 01/29/2025 4:29 AM EDT 01/29/2025 4:48 AM EDT us Martina Suarez MD LAB BLOOD ORDERABLES Final Resul t [facility] [address] [place] [address], [place] * PROTEIN S FUNCTIONAL (01/29/2025 4:29 AM EDT) PROTEIN S FUNCTIONAL 59 63 - 140 % 01/31/2025 12:36 PM EDT [facility] Comment: A deficiency of protein S (PS), [...] on the clinical scenario. Performed at: - [address] [id number] Fisher Clam: Ab Giordano MD, Phone: [phone] Other 01/29/2025 4:29 AM EDT 01/29/2025 4:48 AM EDT Martina Suarez MD [facility] Final Result Performing Organization Address [facility] Co de Phone Number [facility] [address] [place] [address], [place] * PROTEIN S ANTIGEN (01/29/2025 4:29 AM EDT) PROTEIN S, TOTAL 80 60 - 150 % 01/31/2025 1:08 PM EDT [facility] Comment: This test was developed and its performance characteristics determined by [facility]. It has not been cleared or approved by the Food and Drug Administration. PROTEIN S, FREE 81 61 - 136 % 01/31/2025 1:08 PM EDT [facility] Comment: Performed at: [address] [id number] Fisher Clam: Ab Giordano MD, Phone: [phone] Other 01/29/2025 4:29 AM EDT 01/29/2025 4:48 AM EDT Martina Suarez MD [facility] Final Result Performing Organization Address [facility] Co de Phone Number [facility] [address] [place] [address], [place] * PROT ELECTROPHOR W/REFLEX ISA (01/29/2025 4:29 AM EDT) TOTAL PROTEIN, SERUM 5.1 6.0 - 8.5 g/dL 02/02/2025 9:08 AM EDT [facility] ALBUMIN, SERUM 2.4 2.9 - 4.4 g/dL 02/02/2025 9:08 AM EDT [facility] XMXKX-8-UXWBZFEZ 0.2 0.0 - 0.4 g/dL 02/02/2025 9:08 AM EDT [facility] PDSIQ-6-IDEJPFRH 0.7 0.4 - 1.0 g/dL 02/02/2025 9:08 AM EDT [facility] BETA GLOBULIN 1.0 0.7 - 1.3 g/dL 02/02/2025 9:08 AM EDT [facility] GAMMA GLOBULIN 0.8 0.4 - 1.8 g/dL 02/02/2025 9:08 AM EDT [facility] Comment: Not Observed g/dL 02/02/2025 9:08 AM [facility] Comment:SPE shows asymmetric al gamma. GLOBULIN, TOTAL 2.7 2.2 - 3.9 g/dL 02/02/2025 9:08 AM [facility] A/G RATIO 0.9 0.7 - 1.7 02/02/2025 9:08 AM [facility] SPE-NOTE Comment . 02/02/2025 9:08 AM [facility] Comment: Protein electrophoresis scan will follow via computer, mail, or roller mill tender delivery. IMMUNOFIXATION REFLEX . . 02/02/2025 9:08 AM [facility] IMMUNOFIXATION RESULT Comment: . 02/02/2025 9:08 AM [facility] Comment: Presence of monoclonal protein is unclear at this time. Suggest repeat in 3 to 6 months if clinically indicated. Performed at: - [address] [id number] Fisher Clam: Marcelo Parikh PhD, Phone: [phone] Other Topography unknown / Unknown 01/29/2025 4:29 AM EDT 01/29/2025 4:48 AM EDT us Martina Suarez MD [facility] Final Result Performing Organization Address [facility]/State/ZIP Co de Phone Number [facility] [address] [place] [address], * FACTOR II DNA ANALYSIS (01/29/2025 4:29 AM EDT) [facility] FACTOR II, DNA ANALYSIS Comment . 02/04/2025 4:09 PM EDT [facility] Comment: Result: c.*97G>A - Not Detected This [...] the F2 gene and a c.1601G>A (p. [id number]) variant in the F5 gene (commonly referred to as Factor V Leiden) have an approximately 20- fold increased risk for venous thromboembolism. Risks are likely to be even higher in more complex genotype combinations involving the F2 c.*97G>A variant and Factor V Leiden (PMID: 67580969). Additional risk factors include but are not [...] health care providers to discuss results at [phone]). Test Details: Variant analyzed: c.*97G>A, previously referred to as [id number] Methods/Limitations: DNA analysis of the F2 gene [...] developed and its performance characteristics determined by [employer]. It has not been cleared or approved by the Food and Drug Administration. References: Triston S, Rebecca AK, Eagle R, Marissa WW, Jamaal CASTELAN; [employer] Professional Practice and Guidelines Committee. Addendum: [employer] consensus statement on factor V Leiden mutation testing. [employer] Med. 2020Jul 28. doi: 10.1038/x12035-220-12171-d. PMID: 43397583. Mike GLOVER. Prothrombin Thrombophilia. 2005Dec 17 [Updated 2020Jun 29]. In: Itz MP, Angeline HH, Matthew RA, et al., editors. Adriel(Lazaro) [Internet]. [place] ([place]): [facility]; 9117-4565. Available from: https://www.ncbi.nlm.nih.gov/books/VBL4012/ Kamari S, Rebecca AK, Hernandez X, Humberto B, Charly EB, Missy P, Dimas CS; [employer] Laboratory Cycle Liaison Committee. Venous thromboembolism laboratory testing (factor V Leiden and factor II c.*97G>A), 2018 update: a technical standard of the [place] and Genomics (ACMG). [employer]ma Med. 2018 Apr;20(12):1224-6129. doi: 10.1038/[id number]-g. Epub 2017Feb 27. PMID: 89677404. ADDITIONAL INFORMATION Comment . 02/04/2025 4:09 PM EDT [facility] Comment: Technical Component performed at [facility] Professional Component performed by: Gildardo Moore, PhD, [facility] [id number], [facility], [address] [facility] [id number] Performed at: [facility] [address], [facility], [place] [id number] Fisher Clam: Diego Patel formerly [facility], Phone: [phone] Blood (Blood) 01/29/2025 4:2 9 AM EDT 01/29/2025 4:48 AM EDT us [facility] Final Result [facility] [address] [place] [address], * DRVVT WITH REFLEX (01/29/2025 4:29 AM EDT) DILUTE RUSSELLS VIPER VENOM 40.8 0.0 - 47.0 01/31/2025 12:08 PM EDT [facility] PTT-LA 34.6 0.0 - 43.5 01/31/2025 12:08 PM EDT [facility] INTERPRETATION Comment: . 01/31/2025 12:08 PM EDT [facility] Comment: No lupus anticoagulant was detected. Performed at: [address] [id number] Fisher Clam: Ab Giordano MD, Phone: [phone] Other 01/29/2025 4:29 AM EDT 01/29/2025 4:48 AM EDT Martina Suarez MD [facility] Final Result Performing Organization Address [facility] Co de Phone Number [facility] [address] [place] [address], [place] * ANTICARDIOLIPIN IGG/M/A, QN (01/29/2025 4:29 AM EDT) ANTICARDIOLIPIN AB, IGG,QN <9 0 - 14 01/31/2025 12:36 PM EDT [facility] Comment: Negative: <15 Indeterminate: 15 - 20 Low-Med Positive: >20 - 80 High Positive: >80 ANTICARDIOLIPIN AB, IGM,QN <9 0 - 12 01/31/2025 12:36 PM T [facility] Comment: Negative: <13 Indeterminate: 13 - 20 Low-Med Positive: >20 - 80 High Positive: >80 ANTICARDIOLIPIN AB, IGA,QN <9 0 - 11 01/31/2025 12:36 PM [facility] Comment: Negative: <12 Indeterminate: 12 - 20 Low-Med Positive: >20 - 80 High Positive: >80 Performed at: [address] [id number] Fisher Clam: Marcelo Parikh PhD, Phone: [phone] Other Topography unknown / Unknown 01/29/2025 4:29 AM EDT 01/29/2025 4:48 AM EDT Martina Suarez MD LAB BLOOD ORDERABLES Final Resul t Performing Organization Address [facility] Co de Phone Number [facility] [address] [place] [address], [place] * (ABNORMAL) Factor 5 leiden (01/29/2025 4:29 AM EDT) [facility] FACTOR V LEIDEN Comment(AA) . 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 See Additional Clinical Information and Comments. Additional Clinical Information: Venous thromboembolism is a multifactorial disease influenced by genetic, environmental, and circumstantial risk factors. The c.1601G>A (p. Ycg622Eod) variant in the F5 gene, commonly referred [...] c.*97G>A variant and Factor V Leiden (PMID: 89941405). Additional risk factors include but are not [...] health care providers to discuss results at [phone] ([phone]). Test Details: Variant Analyzed: c.1601G>A (p. Tkm760Kow), referred to as Factor V Leiden Methods/Limitations: [...] developed and its performance characteristics determined by [facility]. It has not been cleared or approved by the Food and Drug Administration. References: Triston Santos, Rebecca PATINO, Eagle R, Marissa WW, Jamaal JH; [employer] Professional Practice and Guidelines Committee. Addendum: [place] consensus statement on factor V Leiden mutation testing. Velma Med. 2020Jul 28. doi: 10.1038/j57761-672-54163-d. PMID: 02248560. Mike GLOVER. Factor V Leiden Thrombophilia. 1998October 06 (Updated 2017May 29). In: Itz MP, Angeline HH, Matthew RA, et al., editors. Adriel(R) (Internet). [place] ([place]): [facility]; 0205-2258. Available from: https://www.ncbi.nlm.nih.gov/books/QWP5452/ Kamari S, Rebecca PATINO, David X, Humberto B, Charly EB, Missy P, Dimas CS; [employer] Laboratory Cycle Liaison Committee. Venous thromboembolism laboratory testing (factor V Leiden and factor II c. *97G>A), 2018 update: a technical standard of the [place] [employer] and Gen[employer] (ACMG). Velma Med. 2018 Apr;20(12): 5797-3118. doi: 10.1038/y65537-370-7201-d. Epub 2017Feb 27. PMID: 74587637. REVIEWED BY: Comment . 02/03/2025 4:09 PM EDT [facility] Comment: [facility] Heart, Ph.D., [facility] Performed at: [facility] [place], [place] [id number] Fisher Clam: Diego Patel formerly [facility], Phone: [phone] Blood (Blood) 01/29/2025 4:2 9 AM EDT 01/29/2025 4:48 AM EDT Martina Suarez MD LAB BLOOD ORDERABLES Final Resul t Performing Organization Address [facility] de Phone Number [address] [place] [address], * Protime-INR (01/29/2025 4:29 AM EDT) PROTHROMBIN TIME 10.8 9.0 - 12.9 s 01/29/2025 5:31 AM EDT [facility] Comment: A hematocrit value greater than 55% may lead to inaccurate results in coagulation testing. Patients having hematocrit values >55% require a special collection tube for coagulation studies. Please contact the laboratory at [phone] for redraw instructions. INR 0.9 01/29/2025 5:31 AM EDT [facility] Comment: INR Therapeutic Range A) Pre- and [...] ORDERABLES Final Resul t Performing Organization Address [facility] Co de Phone Number [address] [place] [address], [facility] [address] [place] [address] * Fibrinogen (01/29/2025 4:29 AM EDT) FIBRINOGEN 333 200 - 393 mg/dL 01/29/2025 5:31 AM EDT [facility] Comment: A hematocrit value greater than 55% may lead to inaccurate results in coagulation testing. Patients having hematocrit values >55% require a special collection tube for coagulation studies. Please contact the laboratory at [phone] for redraw instructions. Other Topography unknown / Unknown 01/29/2025 4:29 AM EDT 01/29/2025 4:48 AM EDT Martina Suarez MD LAB BLOOD ORDERABLES Final Resul t [facility] [address] [facility] [place] [address], [facility] [address] [place] [address] from Last 3 Months Insurance MEDICARE [facility] Care Teams Tutoring Assistant Relationship Specialty Start Date End Date Kymberly Gilmore MD [address] [place] [id number] PCP - General Family Medicine 02/28/25
--- OUTSIDE RECORDS SUMMARY | 2025-03-12 11:40 | XMS_ITS | CCD ---
Author Organization [facility] Care Team Providers Care Joint Terminal Attack Controller Name Role Phone REJI, RONAL H. Unavailable Unavailable MAUREEN GILMORE Unavailable Unavailable REJI, RONAL H. Unavailable Unavailable REJI, RONAL H. Unavailable Unavailable REJI, RONAL HAna Unavailable Unavailable MAUREEN GILMORE Unavailable Unavailable MAUREEN GILMORE Primary Care Physician MAUREEN GILMORE Referring Unavailable MAUREEN GILMORE Primary Care Unavailable NEW PARKINSON Attending Unavailable NEW PARKINSON Admitting Unavailable NILL, DR ALEXANDRA Attending Unavailable NILL, DR ALEXANDRA Admitting Unavailable WEST, DR TUYET Linn Consulting Unavailable GILMORE, DR MAUREEN Morales Primary Care Unavailable NILL, DR ALEXANDRA Consulting Unavailable REINECK, DR CHONG Schmitz Attending Unavailabl e REINECK, DR CHONG Schmitz Consulting Unavailabl e REINECK, DR CHONG Schmitz Admitting Unavailabl e GILMORE, DR MAUREEN Morales Primary Care Unavailable MARGARET PARRA Consulting Unavailable MANDO, DR MAUREEN Morales Admitting Unavailable GILMORE, DR MAUREEN Morales Attending Unavailable GILMORE, DR MAUREEN Morales Consulting Unavailable GILMORE, DR MAUREEN Morales Primary Care Unavailable GILMORE, DR MAUREEN Morales Admitting Unavailable GILMORE, DR MAUREEN Morales Attending Unavailable MANDO, DR MAUREEN Morales Consulting Unavailable MANDO, DR MAUREEN Morales Primary Care Unavailable GILMORE, DR MAUREEN Morales Admitting Unavailable GILMORE, DR MAUREEN Morales Attending Unavailable MANDO, DR MAUREEN Morales Consulting Unavailable MANDO, DR MAUREEN Morales Primary Care Unavailable Maureen Gilmore Unavailable Otoniel Kelly Unavailable Maureen Gilmore MD Primary Care Provider Maureen Gilmore MD Primary Care Provider [phone] Yossi Hunter MD K Unavailable [phone] APLINGDOROTHY Attending Unavailable APLING, DOROTHY B Referring Unavailable APLING, DOROTHY Montgomery Referring Unavailable DARLENE GONZALEZ Attending Unavailable LISA, DARLENE Pabon Referring Unavailable LISA, DARLENE Pabon Referring Unavailable TARUN BARRETT Admitting Unavailable NBA OSCAR Referring Unavailable MAUREEN GILMORE Primary Care Unavailable TL SALAZAR Consulting Unavailable MASHALLEE I, YAMILET Attending Unavailable MARGARET GREER Consulting Unavailable MARGARET HUA Consulting Unavailable OMAR HOOVER Consulting Unavailable ISELA HENSLEY Consulting Unavailable MASHALEH I, MOHAMMAD Consulting Unavailable THUMMALAPALLY, RUSHEETH Consulting Unavaila MARLA SanzIKH Referring Unavailable MAUREEN GILMORE Primary Care Unavailable SANDY RODGERS Consulting Unavailable KELI RABAGO Attending Unavailable AVASTHI, CHRISTOPHER Admitting Unavailable DABSAURABH, MALLY Consulting Unavailable MICHAEL ARELLANO Consulting Unavailabl e MARGARET HUA Consulting Unavailable AVASTHI, CHRISTOPHER Consulting Unavailable Cat BURKETT, Bhupinder Toth Attending Unavailable ABIOSE, YOSSI K Referring Unavailable MANDO MAUREEN E Primary Care Unavailable ABIOSE, YOSSI K Referring Unavailable MANDO MAUREEN E Primary Care Unavailable ABIOSE, YOSSI K Attending Unavailable MANDO, MAUREEN E Primary Care Unavailable ABIOSE, YOSSI K Attending Unavailable MANDO MAUREEN E Primary Care Unavailable ABIOSE, YOSSI K Attending Unavailable MANDO MAUREEN E Primary Care Unavailable ABIOSE, YOSSI K Attending Unavailable APRYL GILMOREIA E Primary Care Unavailable Maureen Gilmore MD Attending Provider Maureen Gilmore MD Primary Care Provider CRISTOBAL, OLUREMI Consulting Unavailable BLANCA, SELVON F Attending Unavailable BLANCA, SELVON F Admitting Unavailable MAUREEN GILMORE Primary Care Unavailable Maureen Gilmore MD Primary Care Provider [phone] Thi Vidal APRN Attending Provider [phone] Isha Holley MD Attending Provider Jackson Mondragon MD Attending Provider Maureen Gilmore MD Attending Provider [place] EARTHMOVING PLANT OPERATOR, Alyssa Attending Provider UnavailNeli Go Attending Unavailable MAUREEN GILMORE Referring Unavailable Maureen Gilmore MD Primary Care Provider Isha Holley MD Attending Provider Jackson Mondragon MD Attending Provider Mando BURKETT, Maureen Morales Attending Provider [place] EARTHMOVING PLANT OPERATOR, Alyssa Attending Provider Unavailgracie e Thi Vidal APRN Attending Provider Mando BURKETT, Maureen Primary Care Provider NO FAMILY, PHYSICIAN Primary Care Provider Unava rashid Almodovar MD, Camden Admit Provider Scooby BURKETT, Camden Other Provider Sly MORENO, Yessenia Other Provider Unavailable Jaimee Lim DO Other Provider Srini Castillo MD Other Provider Tatyana Ohara MD Other Provider Divya Avalos APRN Other Provider Ilda Marquez MD Other Provider Christel [facility], Katheryn Pacheco Other Provider Meme BURKETT, Jose M Acuña Other Provider Zeyad El APRN Other Provider Palmira Cope MD Attending Provider Palmira Cope MD Other Provider Tiffany Guerra DO Other Provider Denis Hadley APRN Other Provider Levy Velasquez MD Other Provider Niya Ramires MD Other Provider Tanner Bynum DO Other Provider Ben BURKETT, Tony Barfield Other Provider Duglas Tracy DO Other Provider Harley OSULLIVAN, Delma Other Provider Unavailable Jayjay Robins MD Other Provider [phone] Leslie DIRECTOR OF RESOURCE DEVELOPMENT-C, Barbi Willis Attending Provider Leslie DIRECTOR OF RESOURCE DEVELOPMENT-C, Barbi Willis Other Provider Elkin BURKETT, Richard Manzo Other Provider Yue BURKETT, Julio C Frank Other Provider [phone] Juice Browne MD Other Provider Erick BURKETT, Martina Other Provider Phillip DIRECTOR OF RESOURCE DEVELOPMENT-C, Barbi Willis Attending Provider [phone] Phillip HENDERSON-C, Barbi Willis Other Provider [phone] Tiffany Egan CMA Attending Provider Unavaila ble Jayjay Oscar DO Attending Provider Ruiz Bettencourt DO Admit Provider Cookie Terry MD Attending Provider Cookie Terry MD Other Provider Ibrahima Greenberg MD Attending Provider Ibrahima Greenberg MD Other Provider Maureen Gilmore MD Primary Care Provider Jackson Mondragon MD Attending Provider Isha Holley MD Attending Provider [phone] Maureen Gilmore MD Primary Care Provider Maureen Gilmore MD Attending Provider Jackson Mondragon MD Attending Provider Haley Strong Attending Unavailable Ruiz Bettencourt Admitting Unavailable Ibrahima Greenberg Consulting Unavailable Maureen Gilmore Primary Care Unavailable Sly, Yessenia Consulting Unavailable [place] Almodovar Admitting Unavailable Maureen Gilmore Primary Care Unavailable [place] Almodovar Attending Unavailable Kristier, Yessenia Consulting Unavailable Jaimee Lim Consulting Unavailable Srini Castillo Consulting Unavailable Tatyana Ohara Consulting Unavailable Divya Avalos Consulting Unavailable Ilda Marquez Consulting Unavailable Katheryn Kearney Consulting Unavailable Jose M Valentine Consulting Unavailable Zeyad El Consulting Unavailable AsaadPalmira Consulting Unavailable Tiffany Guerra Consulting Unavailable Denis Hadley Consulting Unavailable Levy Velasquez Consulting Unavailable Niya Ramires Consulting Unavailable Tanner Bynum Consulting Unavailable Tony Contreras II Consulting UnavailDuglas Leblanc Consulting Unavailable Delma Souza Consulting Unavailable Jayjay Robins Consulting Unavailable Barbi Fisher Consulting Unavailable Richard Granger F Consulting Unavailable Julio C Turner Consulting UnavailJuice Becerra Consulting Unavailable Martina Suarez Consulting Unavailable Jayjay Oscar Admitting Unavailable Jayjay Oscar Attending Unavailable Isha Holley Admitting Unavailable Isha Holley Attending Unavailable Maureen Gilmore Primary Care Unavailable Jayjay Oscar Attending Unavailable Jayjay Oscar Admitting Unavailable Maureen Gilmore Primary Care Unavailable Maureen Gilmore Attending Unavailable Maureen Gilmore Admitting Unavailable Allergies Allergy Classification Reported Allergen(s) Allergy Type Date of Onset Reaction(s) Facility Acetaminophen (1 source) Acetaminophen Drug Allergy 09-22-19 [facility] Opioid Agonists (1 source) Codeine Drug Allergy 09-22-19 [facility] Sulfonamides (antibiotic) (1 source) Sulfonamides (Antibiotic) Drug Allergy 09-22-19 24 [facility] venlafaxine (1 source) venlafaxine Drug Allergy 09-22-19 24 [facility] (20 sources) Non-steroidal anti-inflammator y agent; Translations: [NSAIDs] Drug allergy 09-06-19 16 Unknown (qualifier value), Unknown [facility] (3 sources) Sulfonamides (Antibiotic); Translations: [sulfa drugs] Drug allergy Unknown (qualifier value) [facility] [place] (20 sources) venlafaxine; Translations: [venlafaxine] Drug Allergy 07-16-19 19 Unknown (qualifier value), Unknown [facility] [place] (4 sources) NSAIDs; Translations: [NSAIDS (NON-STEROIDAL ANTI-INFLAMMATOR Y DRUG)] Drug allergy (disorder) 09-06-19 16 [facility] Repository (1 source) Tylenol-Codeine #3 Drug allergy (disorder) 01-23-20 16 [facility] (20 sources) Acetaminophen / Codeine Drug Allergy Unknown [email or web address] Other (20 sources) Sulfonamides (Antibiotic) Drug allergy 10-22-19 24 Unknown [email or web address] Other (20 sources) Codeine; Translations: [CODEINE] Drug Allergy 06-09-19 14 Other, Other (See Comments), [facility] (16 sources) Codeine Drug Allergy Unknown [email or web address] Other (4 sources) patient allergy list reviewed by nurse or physicia Propensity to adverse reactions 06-09-19 14 Comment:Done [email or web address] Other (4 sources) Allergies Reconciled Propensity to adverse reactions Unknown [email or web address] Other (16 sources) Sulf-10 Drug allergy Unknown [email or web address] Other (12 sources) cow milk allergenic extract; Translations: [MILK] Drug Allergy 12-11-19 23 GI Upset, Other (See Comments) [facility] Work Phone: (10 sources) Non-steroidal anti-inflammator y agent Drug Intolerance 09-06-19 16 Other, Other (See Comments) [facility] Work Phone: (20 sources) Acetaminophen; Translations: [acetaminophen] Drug Allergy 08-26-19 24 Hives, decreased respirations while sleeping [facility] (20 sources) Sulfonamides (Antibiotic); Translations: [Sulfa (Sulfonamide Antibiotics)] Allergy to substance 08-26-19 24 [facility] (20 sources) NSAIDS (Non-Steroidal Anti-Inflamma; Translations: [NSAIDS (Non-Steroidal Anti-Inflamma] Allergy to substance 08-26-19 24 [facility] (2 sources) VENLAFAXINE ANALOGUES; Translations: [VENLAFAXINE ANALOGUES] Propensity to adverse reactions to drug (disorder) 10-06-19 21 [facility] Repository (2 sources) Acetaminophen / Codeine Drug Allergy 09-06-19 16 Other (See Comments) [facility] (12 sources) Cow milk Allergy to substance 12-11-19 23 [facility] (1 source) Codeine Drug Allergy 03-08-20 25 [facility] Repository (1 source) venlafaxine Drug Allergy 03-08-20 25 [facility] Rep[facility] Medications Current Medications Medication Drug Class(es) [...] the risk of orthostatic hypotension Coreg Not-Taking cyclobenzaprine hydrochloride 10 mg oral tablet (1 source) Muscle Relaxant Start: 06-08-2024 0.4 ml enoxaparin sodium 100 mg/ml prefilled syringe (7 sources) Low Molecular Weight Heparin Start: 02-01-2025 ferrous [...] 06-08-2024 ondansetron (ZOFRAN-ODT) disintegrating tablet 4 mg oxyCODONE hydrochloride 10 mg oral tablet (20 sources) Opioid Agonist Start: 12-08-2024 End: 03-08-2025 Start: 04-21-2024 End: 12-08-2024 Start: 04-08-2024 End: [...] 2023 12:17pm take 2 tablets by mo [facility] every four hours as needed for pain oxyCODONE (OXY-IR) 15 MG immediate release tablet Take 2 tablets by mouth every 4 hours as needed for Pain. Active pantoprazole 40 mg delayed r elease oral tablet (20 sources) Proton Pump Inhibitor Start: 02-01-2025 Start: [...] at least 2 minutes. polyethylene glycol 3350 85577 mg powder for oral solution (1 source) Osmotic Laxative Start: 06-08-2024 microencapsulated potassium chloride 20 meq extended release oral tablet (13 sources) Start: 01-13-2025 Start: 06-10-2024 potassium chlo [...] M) extended release tablet 40 mEq pregabalin 100 mg oral capsu le (20 sources) Start: 03-08-2025 Start: 01-06-2025 End: 03-08-2025 Start: 12-27-2024 End: 01-06-2025 Start: 12-27-2024 End: [...] Active spironolactone 25 mg oral ta blet (7 sources) Aldosterone Antagonist Start: 02-01-2025 valsartan 40 mg oral tablet (7 sources) Angiotensin 2 Receptor Archie Start: 02-01-2025 Vitamin [...] 650 mg take 2 tablets by mo [facility] every four hours as needed acetaminophen (Tylenol) 500 MG tablet Take 1,000 mg by mouth every 4 (four) hours if needed Active albuterol 0.833 mg/ml / ipratropium bromide 0.167 mg/ml inhalation solution (11 sources) Anticholinergic, beta2-Adrenergic Agonist Start: 12-13-2024 End: [...] mg oral tablet (20 sources) Benzodiazepine Start: 12-30-2023 take 0.5 mg by mouth four times daily as needed 0.5 mg, Oral, 4 TIMES DAILY PRN, Starting on Fri12/30/23 at 2326, Until Discontinued, Anxiety Start: 07-23-2023 End: 03-08-2025 Start: 07-23-2023 End: 01-18-2025 Start: 05-22-2023 [facility] ALPRAZolam (Xanax) 0.5 mg tablet [...] 01/18/2021 Active aspirin 325 mg oral tablet (10 sources) Platelet Aggregation Inhibitor, Nonsteroidal Anti-inflammatory Drug [...] contents., Post-op cephalexin 500 mg oral capsule (18 sources) Cephalosporin Antibacterial Start: 01-30-2024 End: 02-26-2024 cholecalciferol 1.25 mg oral capsule (20 sources) Vitamin D Start: 03-10-2023 End: 02-01-2025 Start: 03-10-2023 take 1 capsule by mo [facility] two times weekly cholecalciferol (Vitamin D-3) 50,000 unit capsule Take 1 capsule (50,000 Units) by mouth 2 times a week. 03/10/2023 Active take 1 capsule by mo [facility] two times weekly Vitamin D3 1.25 MG (45266 UT) TAKE 1 CAPSULE BY MOUTH TWICE A WEEK for 85 Active ciprofloxacin 250 mg oral ta blet (20 sources) Quinolone Antimicrobial Start: 04-30-2024 End: 07-27-2024 Start: 11-14-2022 Ciprofloxacin HCl 0.3 % 1 application into the lower eyelid of affected eye Ophthalmic tid for 5 day(s) Oct, Active Start: 11-14-2022 clindamycin 150 mg oral caps ule (19 sources) Lincosamide Antibacterial Start: 12-18-2023 End: 01-20-2024 docusate sodium 50 mg / david osides, mcc 8.6 mg oral tablet (11 sources) Start: 12-13-2024 End: 12-30-2024 Start: 12-13-2024 [...] Serotonin-1d Receptor Agonist Start: 11-08-2022 End: 12-25-2024 Start: 11-14-2021 take 1 tablet by mouth [...] ENous, EVERY 3 HOURS PRN, Starting on 12/30/23 at 2327, Until Discontinued, Allowed for higher [...] IMG ONCE PRN, 1 dose, Starting on Corinne 01/01/24 at 1849, Until Corinne 01/01/24 at 1850, [...] IntraVENous, EVERY 2 HOURS PRN, Starting on 12/30/23 at 2328, Until Fri01/02/24 at 1405, High [...] 01/01/24 at 0845 Start: 10-14-2023 End: 11-10-2023 pantoprazole (PROTONIX) 80 mg in sodium chloride [...] 1 dose sucralfate 1000 mg oral tablet (20 sources) Aluminum Complex Start: 01-03-2024 End: 02-26-2024 [...] (RELPAX). traZODone hydrochloride 50 mg oral tablet (10 sources) Serotonin Reuptake Inhibitor Start: 12-13-2024 End: [...] unspecified] Onset: 4 Episodic Acute posthemorrhagic anemia (18 sources) Acute posthemorrhagic anemia; Translations: [Acute posthemorrhagic anemia] Onset: 8 01-01-2024 Episodic Administrative/social admission (20 sources) Other reduced mobility; Translations: [Impaired mobility [...] Translations: [Attention-deficit hyperactivity disorder, combined type] Chronic Bacterial infection; unspecified site (14 sources) Bacterial infectious disease; Translations: [Bacterial infection, unspecified, in conditions classified elsewhere and of unspecified site] Onset: 9 02-21-2025 Episodic Biliary tract disease (12 sources) Biliary calculus; [...] other sites with unspecified severity] 08-27-2023 Chronic Complication of device; implant or graft (13 sources) Catheter-associated urinary tract infection; Translations: [Infection and inflammatory reaction due to indwelling urethral catheter, initial encounter] Onset: 5 02-18-2025 Episodic Coronary atherosclerosis and other heart disease (8 sources) Preinfarction syndrome; Translations: [Unstable angina] Onset: 4 07-01-2023 Chronic Deficiency and other anemia (19 sources) Anemia due to blood loss; Translations: [...] deficiency] 11-14-2021 Episodic Deficiency and other anemia (20 sources) Anemia; Translations: [Anemia, unspecified] 12-08-2024 Episodic Deficiency and other anemia (1 source) Iron deficiency anemia, unspecified Episodic Deficiency and other anemia (1 source) Anemia, unspecified; Translations: [Anemia, unspecified] Onset: Episodic Diseases of mouth; excluding dental (20 sources) Parotitis; Translations: [Acute sialoadenitis] 12-18-2023 Episodic [...] Onset: 8 Episodic Fracture of lower limb (15 sources) Closed fracture of right ankle; Translations: [...] 8 Episodic Genitourinary symptoms and ill-defined conditions (16 sources) Dysuria; Translations: [Dysuria] 04-29-2024 Episodic Headache; including migraine (20 sources) Migraine; Translations: [Migraine, unspecified, not intractable, without status migrainosus] 11-14-2021 Chronic Heart valve disorders (7 sources) Mitral valve regurgitation; Translations: [Mitral valve prolapse] Onset: 4 11-14-2021 Chronic Intestinal infection (4 sources) Clostridial gastroenteritis; Translations: [Enterocolitis due to Clostridium difficile, not specified as recurrent] Episodic Malaise and fatigue (20 sources) Asthenia; Translations: [Weakness] 01-20-2024 Episodic Mood [...] 11-14-2021 Chronic Other aftercare (3 sources) Other retirement (current) drug therapy; Translations: [OTH LONGTERM CURRENT DRUG THERAPY] Onset: 2 Episodic Other aftercare (20 sources) Patient encounter status; Translations: [Encounter for palliative care] 09-10-2023 Episodic Other aftercare (3 sources) Encounter for palliative care; Translations: [Encounter for palliative care] 09-12-2023 Episodic Other and ill-defined heart disease (20 sources) Mural thrombus of left ventricle; 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, not elsewhere classified] 01-25-2025 Chronic Other and ill-defined heart disease (20 sources) Takotsubo cardiomyopathy; Translations: [Takotsubo syndrome] 01-28-2025 [...] Onset: 4 Episodic Other connective tissue disease (20 sources) Pain in left foot; Translations: [Pain in left foot] 02-03-2024 Episodic Other connective tissue disease (1 source) Other specified soft tissue disorders Episodic Other connective tissue disease (20 sources) Peripheral neuropathic pain; Translations: [Neuralgia and [...] 4 05-27-2023 Chronic Phlebitis; thrombophlebitis and thromboembolism (20 sources) Deep venous thrombosis; Translations: [Acute embolism and thrombosis of unspecified deep veins of unspecified lower extremity] Onset: 5 01-26-2025 Episodic Pulmonary heart disease (20 sources) Chronic pulmonary embolism; Translations: [Chronic pulmonary embolism] Onset: 5 01-28-2025 Chronic Residual codes; unclassified (2 sources) Insomnia 11-14-2021 Episodic Residual codes; unclassified (6 sources) Tobacco user; Translations: [Tobacco use] Onset: 7 11-14-2021 Episodic Residual codes; unclassified (4 sources) Family history of diabetes mellitus; Translations: [Family history of diabetes mellitus] Episodic Residual codes; unclassified (20 sources) Edema; Translations: [Edema, unspecified] 08-26-2023 Episodic Residual codes; unclassified (4 sources) Edema, unspecified; Translations: [Edema] 08-26-2023 Episodic Residual codes; unclassified (1 source) Preoperative state 04-07-2024 Episodic Residual codes; unclassified (1 source) Other specified health status; Translations: [Other specified health status] Onset: 5 Episodic Septicemia (except in labor) (13 sources) Sepsis; Translations: [Sepsis, unspecified organism] Onset: 5 02-18-2025 Episodic Skin and subcutaneous tissue infections (20 sources) Cellulitis of left foot; Translations: [Cellulitis [...] Translations: [Nicotine dependence] Onset: 9 05-27-2023 Chronic Urinary tract infections (13 sources) Urinary tract infectious disease; Translations: [Urinary tract infection, site not specified] Onset: 5 02-18-2025 Episodic Past or Other Problems Problem Classification Problem Date Documented Da te Episodic/Chronic Conditions associated with dizziness or vertigo (15 [...] 10-19-2017 10-19-2017 Episodic Other aftercare (1 source) correction (current) use of aspirin; Translations: [SHANK INSPECTOR 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 USE OF ASPIRIN] Onset: 11-06-2021 Episodic Other aftercare (3 sources) Prescribed medication regimen behavior finding; Translations: [correction (current) use of opiate analgesic] Onset: 01-01-2024 [...] Name Value Interpretation Reference Range Facil ity Basic Metabolic Panelon 10-0 Anion gap [Moles/Vol] 12.1 mmol/L Normal 6.0-15.0 [facility] Comment on above: Performed By: #### U PE RAND #### [facility] , #### URTP #### [facility] [address] [place] [address] Calcium [Mass/Vol] 8.2 mg/dL Low 8.6-10.3 [facility] Comment on above: Performed By: #### U PE RAND #### [facility] , #### URTP #### [address] Chloride [Moles/Vol] 105 mmol/L Normal 98-107 [facility] Comment on above: Performed By: #### U PE RAND #### [facility] , #### URTP #### [facility] [address] [place] [address] CO2 [Moles/Vol] 26.1 mmol/L Normal 21.0-31.0 [facility] Comment on above: Performed By: #### U PE RAND #### [facility] , #### URTP #### [facility] [address] [place] [address] Creatinine [Mass/Vol] 0.38 mg/dL Low 0.60-1.20 [facility] Comment on above: Performed By: #### U PE RAND #### [facility] , #### URTP #### [facility] [address] [place] [address] [place] Creatinine Clr Calc Pharmacy 175.16 Normal [facility] Comment on above: Performed By: #### U PE RAND #### [facility] , #### URTP #### [facility] [address] [place] [address] [place] GFR/1.73 sq M.predicted MDRD (S/P/Bld) [Vol rate/Area] mL/min/{1.73_m2} Normal [facility] Comment on above: Performed By: #### U PE RAND #### [facility] , #### URTP #### [address] Glucose [Mass/Vol] 78 mg/dL Normal 70-100 [facility] Comment on above: Result Comment: [place] om Glucose Reference Range is dependent on time and content of last meal. Glucose of more than 200 mg/dL in a nonstressed, ambulatory subject supports the diagnosis of Diabetes Mellitus. ADA recommended reference range Performed By: #### U PE RAND #### [facility] , #### URTP #### [address] Potassium [Moles/Vol] 3.2 mmol/L Low 3.5-5.1 [facility] Comment on above: Performed By: #### U PE RAND #### [facility] , #### URTP #### [address] Sodium [Moles/Vol] 140 mmol/L Normal 136-145 [facility] Comment on above: Performed By: #### U PE RAND #### [facility] , #### URTP #### [address] Urea nitrogen [Mass/Vol] 2 mg/dL Low 7-25 [facility] Comment on above: Performed By: #### U PE RAND #### [facility] , #### URTP #### [address] Magnesiumon 02-25-2025 Magnesium [Mass/Vol] 1.4 mg/dL Low 1.9-2.7 [facility] Comment on above: Result Comment: PERF ORMED BY: [place] [address] PATHOLOGIST [employer] MACHINE TENDER CUCO BLOUNT M.D. Performed By: #### U PE RAND #### [facility] , #### URTP #### [address] Basic Metabolic Panelon 10-0 Anion gap [Moles/Vol] 11.7 mmol/L Normal 6.0-15.0 [facility] Comment on above: Performed By: #### H H #### [address] Calcium [Mass/Vol] 8.5 mg/dL Low 8.6-10.3 [facility] Comment on above: Performed By: #### H H #### [address] Chloride [Moles/Vol] 104 mmol/L Normal 98-107 [facility] Comment on above: Performed By: #### H H #### [address] CO2 [Moles/Vol] 27.7 mmol/L Normal 21.0-31.0 [facility] Comment on above: Performed By: #### H H #### [place] [address] [place] Creatinine [Mass/Vol] 0.38 mg/dL Low 0.60-1.20 [facility] Comment on above: Performed By: #### H H #### [place] [address] [place] Creatinine Clr Calc Pharmacy 175.47 Normal [facility] Comment on above: Performed By: #### H H #### [place] [address] [place] GFR/1.73 sq M.predicted MDRD (S/P/Bld) [Vol rate/Area] mL/min/{1.73_m2} Normal [facility] Comment on above: Performed By: #### H H #### [address] Glucose [Mass/Vol] 79 mg/dL Normal 70-100 [facility] Comment on above: Result Comment: [place] Glucose Reference Range is dependent on time and content of last meal. Glucose of more than 200 mg/dL in a nonstressed, ambulatory subject supports the diagnosis of Diabetes Mellitus. ADA recommended reference range Performed By: #### H H #### [address] Potassium [Moles/Vol] 3.4 mmol/L Low 3.5-5.1 [facility] Comment on above: Performed By: #### H H #### [address] Sodium [Moles/Vol] 140 mmol/L Normal 136-145 [facility] Comment on above: Performed By: #### H H #### [address] Urea nitrogen [Mass/Vol] 2 mg/dL Low 7-25 [facility] Comment on above: Performed By: #### H H #### [address] Magnesiumon 02-24-2025 Magnesium [Mass/Vol] 1.6 mg/dL Low 1.9-2.7 [facility] Comment on above: Result Comment: PERF ORMED BY: [place] [address] PATHOLOGIST [employer] CUCO BLOUNT M.D. Performed By: #### H H #### [address] Basic Metabolic Panelon 10-0 Anion gap [Moles/Vol] 10.7 mmol/L Normal 6.0-15.0 [facility] Comment on above: Performed By: #### H H #### [address] Calcium [Mass/Vol] 8.2 mg/dL Low 8.6-10.3 [facility] Comment on above: Performed By: #### H H #### [address] Chloride [Moles/Vol] 105 mmol/L Normal 98-107 [facility] Comment on above: Performed By: #### H H #### [address] CO2 [Moles/Vol] 26.6 mmol/L Normal 21.0-31.0 [facility] Comment on above: Performed By: #### H H #### [place] [address] [place] Creatinine [Mass/Vol] 0.43 mg/dL Low 0.60-1.20 [facility] Comment on above: Performed By: #### H H #### [place] [address] [place] Creatinine Clr Calc Pharmacy 155.07 Normal [facility] Comment on above: Performed By: #### H H #### [place] [address] [place] GFR/1.73 sq M.predicted MDRD (S/P/Bld) [Vol rate/Area] mL/min/{1.73_m2} Normal [facility] Comment on above: Performed By: #### H H #### [address] Glucose [Mass/Vol] 114 mg/dL High 70-100 [facility] Comment on above: Result Comment: [facility] Glucose Reference Range is dependent on time and content of last meal. Glucose of more than 200 mg/dL in a nonstressed, ambulatory subject supports the diagnosis of Diabetes Mellitus. ADA recommended reference range Performed By: #### H H #### [place] [address] [place] Potassium [Moles/Vol] 3.3 mmol/L Low 3.5-5.1 [facility] Comment on above: Performed By: #### H H #### [place] [address] [place] Sodium [Moles/Vol] 139 mmol/L Normal 136-145 [facility] Comment on above: Performed By: #### H H #### [place] [address] [place] Urea nitrogen [Mass/Vol] 2 mg/dL Low 7-25 [facility] Comment on above: Performed By: #### H H #### [facility] [address] Magnesiumon 02-23-2025 Magnesium [Mass/Vol] 1.5 mg/dL Low 1.9-2.7 [facility] Comment on above: Result Comment: PERF ORMED BY: [place] [address] PATHOLOGIST [employer] T[employer] CUCO BLOUNT M.D. Performed By: #### H H #### [address] Basic Metabolic Panelon 01-26 Anion gap [Moles/Vol] 12.0 mmol/L Normal 6.0-15.0 [facility] Comment on above: Performed By: #### U PE RAND #### [facility] , #### URTP #### [address] Calcium [Mass/Vol] 8.3 mg/dL Low 8.6-10.3 [facility] Comment on above: Performed By: #### U PE RAND #### [facility] , #### URTP #### [address] Chloride [Moles/Vol] 108 mmol/L High 98-107 [facility] Comment on above: Performed By: #### U PE RAND #### [facility] , #### URTP #### [address] CO2 [Moles/Vol] 23.9 mmol/L Normal 21.0-31.0 [facility] Comment on above: Performed By: #### U PE RAND #### [facility] , #### URTP #### [address] Creatinine [Mass/Vol] 0.39 mg/dL Low 0.60-1.20 [facility] Comment on above: Performed By: #### U PE RAND #### [facility] , #### URTP #### [facility] [address] [place] [address] [place] Creatinine Clr Calc Pharmacy 170.57 Normal [facility] Comment on above: Performed By: #### U PE RAND #### [facility] , #### URTP #### [place] [address] [place] GFR/1.73 sq M.predicted MDRD (S/P/Bld) [Vol rate/Area] mL/min/{1.73_m2} Normal [facility] Comment on above: Performed By: #### U PE RAND #### [facility] , #### URTP #### [address] Glucose [Mass/Vol] 81 mg/dL Normal 70-100 [facility] Comment on above: Result Comment: [place] Glucose Reference Range is dependent on time and content of last meal. Glucose of more than 200 mg/dL in a nonstressed, ambulatory subject supports the diagnosis of Diabetes Mellitus. ADA recommended reference range Performed By: #### U PE RAND #### [facility] , #### URTP #### [place] [address] [place] Potassium [Moles/Vol] 2.9 mmol/L Off scale low 3.5-5.1 [facility] Comment on above: Result Comment: Crit ical Result Called to and read back by: NELI GASTELUM at: 02/22/2025 11:33:47 by:BOBBY Performed By: #### U PE RAND #### [facility] , #### URTP #### [place] [address] [place] Sodium [Moles/Vol] 141 mmol/L Normal 136-145 [facility] Comment on above: Performed By: #### U PE RAND #### [facility] , #### URTP #### [address] Urea nitrogen [Mass/Vol] 2 mg/dL Low 7-25 [facility] Comment on above: Performed By: #### U PE RAND #### [facility] , #### URTP #### [address] Magnesiumon 02-22-2025 Magnesium [Mass/Vol] 1.7 mg/dL Low 1.9-2.7 [facility] Comment on above: Result Comment: PERF ORMED BY: [place] [address] PATHOLOGIST [employer] T[employer] CUCO BLOUNT M.D. Performed By: #### U PE RAND #### [facility] , #### URTP #### [address] Basic Metabolic Panelon 01-25 Anion gap [Moles/Vol] 8.9 mmol/L Normal 6.0-15.0 [facility] Comment on above: Performed By: #### C MP, CBC, MG #### [address] Calcium [Mass/Vol] 7.7 mg/dL Low 8.6-10.3 [facility] Comment on above: Performed By: #### C MP, CBC, MG #### [address] Chloride [Moles/Vol] 108 mmol/L High 98-107 [facility] Comment on above: Performed By: #### C MP, CBC, MG #### [address] CO2 [Moles/Vol] 23.7 mmol/L Normal 21.0-31.0 [facility] Comment on above: Performed By: #### C MP, CBC, MG #### [address] Creatinine [Mass/Vol] 0.34 mg/dL Low 0.60-1.20 [facility] Comment on above: Performed By: #### C MP, CBC, MG #### [address] Creatinine Clr Calc Pharmacy 198.57 Normal [facility] Comment on above: Result Comment: PERF ORMED BY: [place] [address] PATHOLOGIST [employer] CUCO BLOUNT M.D. Performed By: #### C MP, CBC, MG #### [address] GFR/1.73 sq M.predicted MDRD (S/P/Bld) [Vol rate/Area] mL/min/{1.73_m2} Normal [facility] Comment on above: Performed By: #### C MP, CBC, MG #### [address] Glucose [Mass/Vol] 92 mg/dL Normal 70-100 [facility] Comment on above: Result Comment: [facility] Glucose Reference Range is dependent on time and content of last meal. Glucose of more than 200 mg/dL in a nonstressed, ambulatory subject supports the diagnosis of Diabetes Mellitus. ADA recommended reference range Performed By: #### C MP, CBC, MG #### [address] Potassium [Moles/Vol] 2.6 mmol/L Off scale low 3.5-5.1 [facility] Comment on above: Result Comment: Crit ical Result Called to and read back by: KUNAL GIL at: 02/20/2025 08:22:39 by:[id number] Performed By: #### C MP, CBC, MG #### [address] Sodium [Moles/Vol] 138 mmol/L Normal 136-145 [facility] Comment on above: Performed By: #### C MP, CBC, MG #### [address] Urea nitrogen [Mass/Vol] 3 mg/dL Low 7-25 [facility] Comment on above: Performed By: #### C MP, CBC, MG #### [address] Complete Blood Count Auto Di ffon 02-20-2025 Basophils (Bld) [#/Vol] 0.0 10*3/uL Normal 0.0-0.2 [facility] Comment on above: Result Comment: PERF ORMED BY: [place] [address] PATHOLOGIST [employer] T[employer] CUCO BLOUNT M.D. Performed By: #### C UU #### [address] Basophils/100 WBC (Bld) 0.4 % Normal . [facility] Comment on above: Performed By: #### C UU #### [address] Eosinophils (Bld) [#/Vol] 0.1 10*3/uL Normal 0.0-0.45 [facility] Comment on above: Performed By: #### C UU #### [address] Eosinophils/100 WBC (Bld) 1.5 % Normal . [facility] Comment on above: Performed By: #### C UU #### [address] Erythrocyte distribution width (RBC) [Ratio] 22.9 % High 11.9-15.3 [facility] Comment on above: Performed By: #### C UU #### [address] Hematocrit (Bld) [Volume fraction] 26.1 % Low 34.0-46.4 [facility] Comment on above: Performed By: #### C UU #### [address] Hemoglobin (Bld) [Mass/Vol] 8.6 g/dL Low 11.8-15.4 [facility] Comment on above: Performed By: #### C UU #### [address] Lymphocytes (Bld) [#/Vol] 1.0 10*3/uL Normal 1.00-4.8 [facility] Comment on above: Performed By: #### C UU #### [address] Lymphocytes/100 WBC (Bld) 17.1 % Normal . [facility] Comment on above: Performed By: #### C UU #### [address] MCH (RBC) [Entitic mass] 27.2 pg Normal 24.7-34.3 [facility] Comment on above: Performed By: #### C UU #### [address] MCV (RBC) [Entitic vol] 82.8 fL Normal 80-100 [facility] Comment on above: Performed By: #### C UU #### [address] Mean Corpuscular HGB Conc 32.9 g/dL Normal 32.0-35.0 [facility] Comment on above: Performed By: #### C UU #### [address] Monocytes (Bld) [#/Vol] 0.6 10*3/uL Normal 0.0-0.8 [facility] Comment on above: Performed By: #### C UU #### [address] Monocytes/100 WBC (Bld) 9.8 % Normal . [facility] Comment on above: Performed By: #### C UU #### [address] Neutrophils (Bld) [#/Vol] 4.3 10*3/uL Normal 1.8-7.7 [facility] Comment on above: Performed By: #### C UU #### [address] Neutrophils/100 WBC (Bld) 71.2 % Normal . [facility] Comment on above: Performed By: #### C UU #### [facility] [address] NRBC% 0.1 /100{WBC} Normal 0-0.5 [facility] Comment on above: Performed By: #### C UU #### [facility] [address] Platelet mean volume (Bld) [Entitic vol] 7.6 fL Normal 6.3-10.7 [facility] Comment on above: Performed By: #### C UU #### [place] [address] [place] Platelets (Bld) [#/Vol] 221 10*3/uL Normal 150-450 [facility] Comment on above: Performed By: #### C UU #### [address] RBC (Bld) [#/Vol] 3.15 10*6/uL Low 3.60-5.00 [facility] Comment on above: Performed By: #### C UU #### [place] [address] [place] WBC (Bld) [#/Vol] 6.1 10*3/uL Normal 3.8-11.6 [facility] Comment on above: Performed By: #### C UU #### [address] White Blood Count 6.1 [CFU]/mL Normal 3.8-11.6 [facility] Comment on above: Performed By: #### C UU #### [address] Basic Metabolic Panelon 09-2 Anion gap [Moles/Vol] 10.1 mmol/L Normal 6.0-15.0 [facility] Comment on above: Performed By: #### C MP, CBC, MG #### [address] Calcium [Mass/Vol] 7.7 mg/dL Low 8.6-10.3 [facility] Comment on above: Performed By: #### C MP, CBC, MG #### [facility] [address] Chloride [Moles/Vol] 105 mmol/L Normal 98-107 [facility] Comment on above: Performed By: #### C MP, CBC, MG #### [address] CO2 [Moles/Vol] 22.6 mmol/L Normal 21.0-31.0 [facility] Comment on above: Performed By: #### C MP, CBC, MG #### [address] Creatinine [Mass/Vol] 0.44 mg/dL Low 0.60-1.20 [facility] Comment on above: Performed By: #### C MP, CBC, MG #### [place] [address] [place] Creatinine Clr Calc Pharmacy 152.18 Normal [facility] Comment on above: Result Comment: PERF ORMED BY: [place] [address] PATHOLOGIST [employer] T[employer] CUCO BLOUNT M.D. Performed By: #### C MP, CBC, MG #### [place] [address] [place] GFR/1.73 sq M.predicted MDRD (S/P/Bld) [Vol rate/Area] mL/min/{1.73_m2} Normal [facility] Comment on above: Performed By: #### C MP, CBC, MG #### [address] Glucose [Mass/Vol] 96 mg/dL Normal 70-100 [facility] Comment on above: Result Comment: [place] om Glucose Reference Range is dependent on time and content of last meal. Glucose of more than 200 mg/dL in a nonstressed, ambulatory subject supports the diagnosis of Diabetes Mellitus. ADA recommended reference range Performed By: #### C MP, CBC, MG #### [address] Potassium [Moles/Vol] 2.7 mmol/L Off scale low 3.5-5.1 [facility] Comment on above: Result Comment: Crit ical Result Called to and read back by: AIDA LORENZO at: 02/19/2025 07:16:37 by:[email or web address] Performed By: #### C MP, CBC, MG #### [address] Sodium [Moles/Vol] 135 mmol/L Low 136-145 [facility] Comment on above: Performed By: #### C MP, CBC, MG #### [address] Urea nitrogen [Mass/Vol] 5 mg/dL Low 7-25 [facility] Comment on above: Performed By: #### C MP, CBC, MG #### [address] Magnesiumon 02-19-2025 Magnesium [Mass/Vol] 1.6 mg/dL Low 1.9-2.7 [facility] Comment on above: Result Comment: PERF ORMED BY: [place] [address] PATHOLOGIST [employer] T[employer] CUCO BLOUNT M.D. Performed By: #### C MP, CBC, MG #### [address] Basic Metabolic Panelon 01-25 Creatinine Clr Calc Pharmacy 129.33 Normal [facility] Comment on above: Performed By: #### U PE RAND #### [facility] , #### URTP #### [address] GFR/1.73 sq M.predicted MDRD (S/P/Bld) [Vol rate/Area] mL/min/{1.73_m2} Normal [facility] Comment on above: Performed By: #### U PE RAND #### [facility] , #### URTP #### [place] [address] [place] Basophils [#/volume] in Bloo d by Automated countOrdered By: Ruiz Bettencourt on 02-18-2025 Basophils (Bld) [#/Vol] 0.0 10*3/uL Normal 0.0-0.2 [facility] Comment on above: Result Comment: PERF ORMED BY: [place] [address] PATHOLOGIST [employer]CO BLOUNT M.D. Performed By: #### M G, CBC, BMP #### [place] [address] [place] Basophils/100 leukocytes in Blood by Automated countOrdered By: Ruiz Bettencourt on 02-18-2025 Basophils/100 WBC (Bld) 0.3 % Normal . [facility] Comment on above: Performed By: #### M G, CBC, BMP #### [place] [address] [place] Calcium [Mass/volume] in Ser um or PlasmaOrdered By: Ruiz Bettencourt on 02-18-2025 Calcium [Mass/Vol] 7.8 mg/dL Low 8.6-10.3 [facility] Comment on above: Performed By: #### U PE RAND #### [facility] , #### URTP #### [place] [address] [place] Carbon dioxide, total [Moles /volume] in Serum or PlasmaOrdered By: Ruiz Bettencourt on 02-18-2025 CO2 [Moles/Vol] 21.8 mmol/L Normal 21.0-31.0 [facility] Comment on above: Performed By: #### U PE RAND #### [facility] , #### URTP #### [facility] [address] Chloride [Moles/volume] in S vero or PlasmaOrdered By: Ruiz Bettencourt on 02-18-2025 Chloride [Moles/Vol] 108 mmol/L High 98-107 [facility] Comment on above: Performed By: #### U PE RAND #### [facility] , #### URTP #### [address] Complete Blood Count Auto Di ffon 02-18-2025 Mean Corpuscular HGB Conc 32.7 g/dL Normal 32.0-35.0 [facility] Comment on above: Performed By: #### M G, CBC, BMP #### [address] NRBC% 0.0 /100{WBC} Normal 0-0.5 [facility] Comment on above: Performed By: #### M G, CBC, BMP #### [address] White Blood Count 8.9 [CFU]/mL Normal 3.8-11.6 [facility] Comment on above: Performed By: #### M G, CBC, BMP #### [place] [address] [place] Creatinine [Mass/volume] in Serum or PlasmaOrdered By: Ruiz Bettencourt on 02-18-2025 Creatinine [Mass/Vol] 0.53 mg/dL Low 0.60-1.20 [facility] Comment on above: Performed By: #### U PE RAND #### [facility] , #### URTP #### [address] Eosinophils [#/volume] in Bl ood by Automated countOrdered By: Ruiz Bettencourt on 02-18-2025 Eosinophils (Bld) [#/Vol] 0.0 10*3/uL Normal 0.0-0.45 [facility] Comment on above: Performed By: #### M G, CBC, BMP #### [address] Eosinophils/100 leukocytes i n Blood by Automated countOrdered By: Ruiz Bettencourt on 02-18-2025 Eosinophils/100 WBC (Bld) 0.1 % Normal . [facility] Comment on above: Performed By: #### M G, CBC, BMP #### [address] Erythrocyte distribution wid th [Ratio] by Automated countOrdered By: Ruiz Bettencourt on 02-18-2025 Erythrocyte distribution width (RBC) [Ratio] 22.0 % High 11.9-15.3 [facility] Comment on above: Performed By: #### M G, CBC, BMP #### [address] Erythrocytes [#/volume] in B lood by Automated countOrdered By: Ruiz Bettencourt on 02-18-2025 RBC (Bld) [#/Vol] 3.29 10*6/uL Low 3.60-5.00 [facility] Comment on above: Performed By: #### M G, CBC, BMP #### [address] Glomerular filtration rate [ Volume Rate/Area] in Serum, Plasma or Blood by CreatinineOrdered By: Ruiz Bettencourt on 02-18-2025 Glomerular filtration rate [Volume Rate/Area] in Serum, Plasma or Blood by Creatinine > 60.0 mL/Min [facility] Glucose [Mass/volume] in Ser um or PlasmaOrdered By: Ruiz Bettencourt on 02-18-2025 Glucose [Mass/Vol] 107 mg/dL High 70-100 [facility] Comment on above: Result Comment: [place] om Glucose Reference Range is dependent on time and content of last meal. Glucose of more than 200 mg/dL in a nonstressed, ambulatory subject supports the diagnosis of Diabetes Mellitus. ADA recommended reference range Performed By: #### U PE RAND #### [facility] , #### URTP #### [address] Hematocrit [Volume Fraction] of Blood by Automated countOrdered By: Ruiz Bettencourt on 02-18-2025 Hematocrit (Bld) [Volume fraction] 27.3 % Low 34.0-46.4 [facility] Comment on above: Performed By: #### M G, CBC, BMP #### [address] Hemoglobin [Mass/volume] in BloodOrdered By: Ruiz Bettencourt on 02-18-2025 Hemoglobin (Bld) [Mass/Vol] 8.9 g/dL Low 11.8-15.4 [facility] Comment on above: Performed By: #### M G, CBC, BMP #### [address] Leukocytes [#/volume] correc patty for nucleated erythrocytes in Blood by Automated counOrdered By: Ruiz Bettencourt on 02-18-2025 WBC corrected for nucl RBC Auto (Bld) [#/Vol] 8.9 10*3/uL 3.8-11.6 [facility] Leukocytes [#/volume] in Blo od by Automated countOrdered By: Ruiz Bettencourt on 02-18-2025 WBC (Bld) [#/Vol] 8.9 10*3/uL Normal 3.8-11.6 [facility] Comment on above: Performed By: #### M G, CBC, BMP #### [place] [address] [place] Lymphocytes [#/volume] in Bl ood by Automated countOrdered By: Ruiz Bettencourt on 02-18-2025 Lymphocytes (Bld) [#/Vol] 0.9 10*3/uL Low 1.00-4.8 [facility] Comment on above: Performed By: #### M G, CBC, BMP #### [place] [address] [place] Lymphocytes/100 leukocytes i n Blood by Automated countOrdered By: Ruiz Bettencourt on 02-18-2025 Lymphocytes/100 WBC (Bld) 10.4 % Normal . [facility] Comment on above: Performed By: #### M G, CBC, BMP #### [address] MCH [Entitic mass] by Automa patty countOrdered By: Ruiz Bettencourt on 02-18-2025 MCH (RBC) [Entitic mass] 27.2 pg Normal 24.7-34.3 [facility] Comment on above: Performed By: #### M G, CBC, BMP #### [address] MCHC Auto (RBC) [Mass/Vol]Or dered By: Ruiz Bettencourt on 02-18-2025 MCHC (RBC) [Mass/Vol] 32.7 g/dL 32.0-35.0 [facility] MCV [Entitic volume] by Auto mated countOrdered By: Ruiz Bettencourt on 02-18-2025 MCV (RBC) [Entitic vol] 83.2 fL Normal 80-100 [facility] Comment on above: Performed By: #### M G, CBC, BMP #### [address] Magnesium [Mass/volume] in S vero or PlasmaOrdered By: Ruiz Bettencourt on 02-18-2025 Magnesium [Mass/Vol] 1.7 mg/dL Low 1.9-2.7 [facility] Comment on above: Result Comment: PERF ORMED BY: [place] [address] PATHOLOGIST [employer] T[employer] CUCO BLOUNT M.D. Performed By: #### U PE RAND #### [facility] , #### URTP #### [address] Monocytes [#/volume] in Bloo d by Automated countOrdered By: Ruiz Bettencourt on 02-18-2025 Monocytes (Bld) [#/Vol] 0.9 10*3/uL High 0.0-0.8 [facility] Comment on above: Performed By: #### M G, CBC, BMP #### [facility] [address] [place] [address] Monocytes/100 leukocytes in Blood by Automated countOrdered By: Ruiz Bettencourt on 02-18-2025 Monocytes/100 WBC (Bld) 10.4 % Normal . [facility] Comment on above: Performed By: #### M G, CBC, BMP #### [address] Neutrophils [#/volume] in Bl ood by Automated countOrdered By: Ruiz Bettencourt on 02-18-2025 Neutrophils (Bld) [#/Vol] 7.0 10*3/uL Normal 1.8-7.7 [facility] Comment on above: Performed By: #### M G, CBC, BMP #### [facility] [address] [place] [address] Neutrophils/100 leukocytes i n Blood by Automated countOrdered By: Ruiz Bettencourt on 02-18-2025 Neutrophils/100 WBC (Bld) 78.8 % Normal . [facility] Comment on above: Performed By: #### M G, CBC, BMP #### [facility] [address] [place] [address] No Panel InformationOrdered By: Ruiz Bettencourt on 02-18-2025 129.33 [facility] Nucleated erythrocytes [Pres ence] in Blood by Automated countOrdered By: Ruiz Bettencourt on 02-18-2025 Nucleated RBC Auto Ql (Bld) 0.0 /100{WBC} 0-0.5 [facility] Platelet mean volume [Entiti c volume] in Blood by Automated countOrdered By: Ruiz Bettencourt on 02-18-2025 Platelet mean volume (Bld) [Entitic vol] 7.6 fL Normal 6.3-10.7 [facility] Comment on above: Performed By: #### M G, CBC, BMP #### [facility] [address] [place] [address] Platelets [#/volume] in Bloo d by Automated countOrdered By: Ruiz Bettencourt on 02-18-2025 Platelets (Bld) [#/Vol] 201 10*3/uL Normal 150-450 [facility] Comment on above: Performed By: #### M G, CBC, BMP #### [address] Potassium [Moles/volume] in Serum or PlasmaOrdered By: Ruiz Bettencourt on 02-18-2025 Potassium [Moles/Vol] 3.0 mmol/L Low 3.5-5.1 [facility] Comment on above: Performed By: #### U PE RAND #### [facility] , #### URTP #### [address] Serum or plasma anion gap de terminationOrdered By: Ruiz Bettencourt on 02-18-2025 Anion gap [Moles/Vol] 9.2 mmol/L Normal 6.0-15.0 [facility] Comment on above: Performed By: #### U PE RAND #### [facility] , #### URTP #### [address] [address] Sodium [Moles/volume] in Ser um or PlasmaOrdered By: Ruiz Bettencourt on 02-18-2025 Sodium [Moles/Vol] 136 mmol/L Normal 136-145 [facility] Comment on above: Performed By: #### U PE RAND #### [facility] , #### URTP #### [facility] [address] [place] [address] Urea nitrogen [Mass/volume] in Serum or PlasmaOrdered By: Ruiz Bettencourt on 02-18-2025 Urea nitrogen [Mass/Vol] 6 mg/dL Low 7-25 [facility] Comment on above: Performed By: #### U PE RAND #### [facility] , #### URTP #### [facility] [address] [place] [address] Basophils Auto (Bld) [#/Vol] Ordered By: Jayjay Oscar on 02-17-2025 Basophils (Bld) [#/Vol] 0.0 10 3/uL 0.0-0.1 [facility] Basophils/100 WBC Auto (Bld) Ordered By: Jayjay Oscar on 02-17-2025 Basophils/100 WBC (Bld) 0.3 % 0.2-2.0 [facility] Blood Cultureon 02-17-2025 Bacteria identified Cx Nom (Bld) Gram Stain Gram Positive Cocci ORGANISM: Staphylococcus sp coag neg (O:STACN) Aerobic LUBNA Charge (PCMIC38) ----- SUSCEPTIBILITY ---- ORGANISM: O:STACN ANTIBIOTIC INTERPRETATION LUBNA Azithromycin S <2 Ciprofloxacin S <1 Daptomycin S <0.5 Levofloxacin S <1 Linezolid S <1 Oxacillin R >2 Penicillin R >2 Tetracycline S <4 Trimethoprim/Sulfame thoxazole R >2 Vancomycin S 0.5 S = SUSCEPTIBLE I = INTERMEDIATE R [...] RESISTANT TO ALL B-LACTAM DRUGS. PERFORMED BY: [place] [address] PATHOLOGIST L[employer] MACHINE TENDER CUCO BLOUNT M.D. Normal [facility] Comment on above: Performed By: #### C MP, CBC, MG #### [address] Eosinophils/100 WBC Auto (Bl d)Ordered By: Jayjay Oscar on 02-17-2025 Eosinophils/100 WBC (Bld) 0.1 % Low 0.9-7.0 [facility] Erythrocyte distribution wid th Auto (RBC) [Ratio]Ordered By: Jayjay Oscar on 02-17-2025 Erythrocyte distribution width (RBC) [Ratio] 20.4 % High 11.0-15.0 [facility] Glomerular filtration rate ( GFR) estimation in non- AmericanOrdered By: Maureen Gilmore on 02-17-2025 GFR/1.73 sq M.predicted among non-blacks MDRD (S/P/Bld) [Vol rate/Area] mL/min/{1.73_m2} >=60 mL/min/1.73m 2 [facility] Hematocrit Auto (Bld) [Volum e fraction]Ordered By: Jayjay Oscar on 02-17-2025 Hematocrit (Bld) [Volume fraction] 28.5 % Low 36.0-48.0 [facility] Hemoglobin [Mass/volume] in BloodOrdered By: Jayjay Oscar on 02-17-2025 Hemoglobin (Bld) [Mass/Vol] 9.5 g/dL Low 12.0-16.0 [facility] Leukocytes [#/volume] correc patty for nucleated erythrocytes in Blood by Automated counOrdered By: Jayjay Oscar on 02-17-2025 WBC corrected for nucl RBC Auto (Bld) [#/Vol] 9.9 10 3/uL 4.0-11.0 [facility] Lymphocytes Auto (Bld) [#/Vo l]Ordered By: Jayjay Oscar on 02-17-2025 Lymphocytes (Bld) [#/Vol] 1.2 10 3/uL 1.2-3.8 [facility] Lymphocytes/100 WBC Auto (Bl d)Ordered By: Jayjay Oscar on 02-17-2025 Lymphocytes/100 WBC (Bld) 12.4 % Low 20.5-60.0 [facility] MCH Auto (RBC) [Entitic mass ]Ordered By: Jayjay Oscar on 02-17-2025 MCH (RBC) [Entitic mass] 27.9 pg 26.7-34.0 [facility] MCHC Auto (RBC) [Mass/Vol]Or dered By: Jayjay Oscar on 02-17-2025 MCHC (RBC) [Mass/Vol] 33.3 g/dL 29.9-35.2 [facility] MCV Auto (RBC) [Entitic vol] Ordered By: Jayjay Oscar on 02-17-2025 MCV (RBC) [Entitic vol] 83.6 fL 81.0-99.0 [facility] Monocytes Auto (Bld) [#/Vol] Ordered By: Jayjay Oscar on 02-17-2025 Monocytes (Bld) [#/Vol] 0.8 10 3/uL 0.3-0.8 [facility] Monocytes/100 WBC Auto (Bld) Ordered By: Jayjay Oscar on 02-17-2025 Monocytes/100 WBC (Bld) 8.5 % 1.7-12.0 [facility] Neutrophils Auto (Bld) [#/Vo l]Ordered By: Jayjay Oscar on 02-17-2025 Neutrophils (Bld) [#/Vol] 7.7 10 3/uL High 1.4-6.5 [facility] Neutrophils/100 WBC Auto (Bl d)Ordered By: Jayjay Oscar on 02-17-2025 Neutrophils/100 WBC (Bld) 78.1 % High 43.0-75.0 [facility] No Panel InformationOrdered By: Rahat Frank on 02-17-2025 7.3 pg/mL 4.0-51.3 [facility] No Panel InformationOrdered By: Jayjay Oscar on 02-17-2025 YES-[facility] NONE SEEN #/LPF NONE SEEN [facility] None Seen #/HPF None Seen [facility] MODERATE #/HPF Abnormal NONE SEEN [facility] SMALL Abnormal NEGATIVE [facility] SL CLOUDY CLEAR [facility] YELLOW YELLOW [facility] Negative NEGATIVE [facility] TRACE mg/dL Abnormal NEGATIVE [facility] LARGE Abnormal NEGATIVE [facility] NONE SEEN NONE SEEN [facility] Positive Abnormal NEGATIVE [facility] 6.0 5.0-9.0 [facility] 100 mg/dL Abnormal NEG/TRACE [facility] 5-10 #/HPF Abnormal 0-2 [facility] 1.010 1.005-1.025 [facility] RARE #/LPF NONE/RARE [facility] 4.0 EU/dL Abnormal 0.2-1.0 [facility] 50-75 #/HPF Abnormal NONE SEEN [facility] Negative [facility] 0.8 mmol/L 0.4-2.0 [facility] 0.0 10 3/uL 0.0-0.7 [facility] 0.06 10 3/uL High 0.00-0.03 [facility] 0.6 % High 0.0-0.5 [facility] Staphylococcus sp coag neg Abnormal [facility] No Panel InformationOrdered By: Maureen Gilmore on 02-17-2025 12.5 [facility] 7.0 mg/dL 7.0-18.0 [facility] 8.2 mg/dL Low 8.5-10.1 [facility] 103 mmol/L 98-107 [facility] 22.8 mmol/L 21.0-32.0 [facility] 0.56 mg/dL 0.55-1.02 [facility] >60 >=60 mL/min/1.7 3m 2 [facility] 107 mg/dL High 74-106 [facility] 3.5 mmol/L 3.5-5.1 [facility] 135 mmol/L Low 136-145 [facility] Platelet mean volume Auto (B ld) [Entitic vol]Ordered By: Jayjay Oscar on 02-17-2025 Platelet mean volume (Bld) [Entitic vol] 9.3 fL Low 9.5-13.5 [facility] Platelets Auto (Bld) [#/Vol] Ordered By: Jayjay Oscar on 02-17-2025 Platelets (Bld) [#/Vol] 215 10 3/uL 150-450 [facility] RBC Auto (Bld) [#/Vol]Ordere d By: Jayjay Oscar on 02-17-2025 RBC (Bld) [#/Vol] 3.41 10 6/uL Low 4.20-5.40 [facility] Serum or plasma anion gap de terminationOrdered By: Maureen Gilmore on 02-17-2025 Anion gap [Moles/Vol] 12.7 mmol/L [facility] Urine Cultureon 02-17-2025 Bacteria identified Cx Nom (U) ORGANISM: Escherichia coli (ESBL) (O:ESCCOLESBL) [place] Count >100,000 Aerobic LUBNA Charge (NMIC56) ----- SUSCEPTIBILITY ---- ORGANISM: O:ESCCOLESBL ANTIBIOTIC INTERPRETATION LUBNA Amikacin S <16 Amoxacillin/K Clavulanate I 1616/8 Ampicillin R >16 Ampicillin/Sulbactam I 1616/8 Aztreonam R <4 Cefazolin R >16 Cefepime R 8 Ceftazidime R 8 Ceftazidime/Avibacta m S <4 Ceftolozane/Tazobact am S <2 Ceftriaxone R >32 Cefuroxime R >16 Ciprofloxacin R >2 Ertapenem S <0.5 Gentamicin S <2 Levofloxacin R >4 Meropenem S <1 Meropenem/Vaborbacta m S <2 Nitrofurantoin S <32 Piperacillin/Tazobac rodriguez S <8 Tetracycline S <4 Tigecycline S <2 Tobramycin R >8 Trimethoprim/Sulfame thoxazole R >2 S = SUSCEPTIBLE I = INTERMEDIATE R [...] RESISTANT TO ALL B-LACTAM DRUGS. PERFORMED BY: [place] [address] PATHOLOGIST [employer] MACHINE TENDER CUCO BLOUNT M.D. Normal [facility] Comment on above: Performed By: #### C UU #### [address] Urine cultureOrdered By: Avtar Oscar on 02-17-2025 Bacteria identified Cx Nom (U) Escherichia coli (ESBL) Abnormal [facility] PROTEIN C ANTIGENon 02-05-20 PROTEIN C ANTIGEN 70 % 60 - 150 % [facility] Comment on above: Performed at: - [facility] [address] [id number] [employer] Operator: Ab Giordano MD, Phone: [phone] [facility] PROT ELECTROPHOR W/REFLEX IF Constantin 02-02-2025 Albumin [Mass/Vol] 2.4 g/dL 2.9 - 4.4 g/dL NO [facility] Albumin/Globulin [Mass ratio] 0.9 {ratio} 0.7 - 1.7 [facility] [id number] 0.2 g/dL 0.0 - 0.4 g/dL [facility] [id number] 0.7 g/dL 0.4 - 1.0 g/dL [facility] BETA GLOBULIN 1 g/dL 0.7 - 1.3 g/dL [facility] GAMMA GLOBULIN 0.8 g/dL 0.4 - 1.8 g/dL [facility] Globulin (S) [Mass/Vol] 2.7 g/dL 2.2 - 3.9 g/dL [facility] IMMUNOFIXATION REFLEX . . [facility] IMMUNOFIXATION RESULT Comment: . [facility] Comment on above: Presence of monoclon al protein is unclear at this time. Suggest repeat in 3 to 6 months if clinically indicated. Performed at: - [facility] [id number] [employer] Operator: Marcelo Parikh PhD, Phone: [phone] M-SPIKE Comment: Not Observed g/dL [facility] Comment on above: SPE shows asymmetric al gamma. Protein [Mass/Vol] 5.1 g/dL 6.0 - 8.5 g/dL NO [facility] SPE-NOTE Comment . [facility] Comment on above: Protein electrophore sis scan will follow via computer, mail, or slitting and shipping supervisor delivery. [facility] Complete Blood Count Auto Di ffon 02-01-2025 Basophils (Bld) [#/Vol] 0.0 10*3/uL Normal 0.0-0.2 [facility] Comment on above: Result Comment: PERF ORMED BY: [facility] [address] [place] [address] PATHOLOGIST [employer] MACHINE TENDER CUCO BLOUNT M.D. Performed By: #### C MP, CBC, MG #### [facility] [address] [place] [address] [place] Basophils/100 WBC (Bld) 0.8 % Normal . [facility] Comment on above: Performed By: #### C MP, CBC, MG #### [facility] [address] Eosinophils (Bld) [#/Vol] 0.0 10*3/uL Normal 0.0-0.45 [facility] Comment on above: Performed By: #### C MP, CBC, MG #### [place] [address] [place] Eosinophils/100 WBC (Bld) 0.8 % Normal . [facility] Comment on above: Performed By: #### C MP, CBC, MG #### [address] Erythrocyte distribution width (RBC) [Ratio] 21.8 % High 11.9-15.3 [facility] Comment on above: Performed By: #### C MP, CBC, MG #### [address] Hematocrit (Bld) [Volume fraction] 28.5 % Low 34.0-46.4 [facility] Comment on above: Performed By: #### C MP, CBC, MG #### [place] [address] [place] Hemoglobin (Bld) [Mass/Vol] 9.3 g/dL Low 11.8-15.4 [facility] Comment on above: Performed By: #### C MP, CBC, MG #### [place] [address] [place] Lymphocytes (Bld) [#/Vol] 1.4 10*3/uL Normal 1.00-4.8 [facility] Comment on above: Performed By: #### C MP, CBC, MG #### [place] [address] [place] Lymphocytes/100 WBC (Bld) 25.6 % Normal . [facility] Comment on above: Performed By: #### C MP, CBC, MG #### [address] MCH (RBC) [Entitic mass] 27.8 pg Normal 24.7-34.3 [facility] Comment on above: Performed By: #### C MP, CBC, MG #### [address] MCV (RBC) [Entitic vol] 85.1 fL Normal 80-100 [facility] Comment on above: Performed By: #### C MP, CBC, MG #### [address] Mean Corpuscular HGB Conc 32.7 g/dL Normal 32.0-35.0 [facility] Comment on above: Performed By: #### C MP, CBC, MG #### [address] Monocytes (Bld) [#/Vol] 0.3 10*3/uL Normal 0.0-0.8 [facility] Comment on above: Performed By: #### C MP, CBC, MG #### [address] Monocytes/100 WBC (Bld) 5.9 % Normal . [facility] Comment on above: Performed By: #### C MP, CBC, MG #### [address] Neutrophils (Bld) [#/Vol] 3.5 10*3/uL Normal 1.8-7.7 [facility] Comment on above: Performed By: #### C MP, CBC, MG #### [address] Neutrophils/100 WBC (Bld) 66.9 % Normal . [facility] Comment on above: Performed By: #### C MP, CBC, MG #### [address] NRBC% 0.1 /100{WBC} Normal 0-0.5 [facility] Comment on above: Performed By: #### C MP, CBC, MG #### [facility] [address] Platelet mean volume (Bld) [Entitic vol] 7.9 fL Normal 6.3-10.7 [facility] Comment on above: Performed By: #### C MP, CBC, MG #### [address] Platelets (Bld) [#/Vol] 363 10*3/uL Normal 150-450 [facility] Comment on above: Performed By: #### C MP, CBC, MG #### [address] RBC (Bld) [#/Vol] 3.35 10*6/uL Low 3.60-5.00 [facility] Comment on above: Performed By: #### C MP, CBC, MG #### [address] WBC (Bld) [#/Vol] 5.3 10*3/uL Normal 3.8-11.6 [facility] Comment on above: Performed By: #### C MP, CBC, MG #### [address] White Blood Count 5.3 [CFU]/mL Normal 3.8-11.6 [facility] Comment on above: Performed By: #### C MP, CBC, MG #### [address] Comprehensive Metabolic Pane doris 02-01-2025 Albumin [Mass/Vol] 2.6 g/dL Low 3.5-5.7 [facility] Comment on above: Performed By: #### C MP, CBC, MG #### [address] Albumin/Globulin [Mass ratio] 0.9 {ratio} Normal [facility] Comment on above: Performed By: #### C MP, CBC, MG #### [address] ALP [Catalytic activity/Vol] 101 U/L Normal 34-104 [facility] Comment on above: Performed By: #### C MP, CBC, MG #### [facility] [address] [place] [address] [place] ALT [Catalytic activity/Vol] 4 U/L Low 7-52 [facility] Comment on above: Performed By: #### C MP, CBC, MG #### [facility] [address] Anion gap [Moles/Vol] 9.4 mmol/L Normal 6.0-15.0 [facility] Comment on above: Performed By: #### C MP, CBC, MG #### [facility] [address] AST [Catalytic activity/Vol] 28 U/L Normal 13-39 [facility] Comment on above: Performed By: #### C MP, CBC, MG #### [facility] [address] Bilirubin [Mass/Vol] 0.4 mg/dL Normal 0.3-1.0 [facility] Comment on above: Performed By: #### C MP, CBC, MG #### [facility] [address] [place] [address] [place] Calcium [Mass/Vol] 8.3 mg/dL Low 8.6-10.3 [facility] Comment on above: Performed By: #### C MP, CBC, MG #### [facility] [address] [place] [address] [place] Chloride [Moles/Vol] 104 mmol/L Normal 98-107 [facility] Comment on above: Performed By: #### C MP, CBC, MG #### [facility] [address] [place] [address] [place] CO2 [Moles/Vol] 29.0 mmol/L Normal 21.0-31.0 [facility] Comment on above: Performed By: #### C MP, CBC, MG #### [facility] [address] [place] [address] [place] Creatinine [Mass/Vol] 0.42 mg/dL Low 0.60-1.20 [facility] Comment on above: Performed By: #### C MP, CBC, MG #### [facility] [address] [place] [address] [place] Creatinine Clr Calc Pharmacy 160.51 Normal [facility] Comment on above: Performed By: #### C MP, CBC, MG #### [facility] [address] [place] [address] [place] GFR/1.73 sq M.predicted MDRD (S/P/Bld) [Vol rate/Area] mL/min/{1.73_m2} Normal [facility] Comment on above: Performed By: #### C MP, CBC, MG #### [facility] [address] Globulin (S) [Mass/Vol] 2.9 g/dL Normal [facility] Comment on above: Performed By: #### C MP, CBC, MG #### [address] Glucose [Mass/Vol] 86 mg/dL Normal 70-100 [facility] Comment on above: Result Comment: [facility] Glucose Reference Range is dependent on time and content of last meal. Glucose of more than 200 mg/dL in a nonstressed, ambulatory subject supports the diagnosis of Diabetes Mellitus. ADA recommended reference range Performed By: #### C MP, CBC, MG #### [address] Potassium [Moles/Vol] 3.4 mmol/L Low 3.5-5.1 [facility] Comment on above: Performed By: #### C MP, CBC, MG #### [address] Protein [Mass/Vol] 5.5 g/dL Low 6.4-8.9 [facility] Comment on above: Performed By: #### C MP, CBC, MG #### [address] Sodium [Moles/Vol] 139 mmol/L Normal 136-145 [facility] Comment on above: Performed By: #### C MP, CBC, MG #### [facility] [address] Urea nitrogen [Mass/Vol] 3 mg/dL Low 7-25 [facility] Comment on above: Performed By: #### C MP, CBC, MG #### [facility] [address] [place] [id number] [facility] Magnesiumon 02-01-2025 Magnesium [Mass/Vol] 1.7 mg/dL Low 1.9-2.7 [facility] Comment on above: Result Comment: PERF ORMED BY: [place] [address] PATHOLOGIST [employer] MACHINE TENDER CUCO BLOUNT M.D. Performed By: #### C MP, CBC, MG #### [address] PROTEIN ELECTRO, RANDOM URIN Constantin 02-01-2025 ALBUMIN, URINE 34 % . [facility] [id number], URINE 4.2 % . [facility] [id number], URINE 8.4 % . [facility] BETA GLOBULIN, URINE 22.3 % . [facility] GAMMA GLOBULIN, URINE 31 % . [facility] M-SPIKE % Not Observed Not Observed % [facility] PLEASE NOTE: Comment . [facility] Comment on above: Protein electrophore sis scan will follow via computer, mail, or slitting and shipping supervisor delivery. Performed at: [facility] [address] [id number] [employer] Operator: Marcelo Parikh PhD, Phone: [phone] Protein (U) [Mass/Vol] 5.7 mg/dL Not Estab. [facility] ANTITHROMBIN ACTIVITYon ANTITHROMBIN ACTIVITY 97 % 75 - 135 % [facility] Comment on above: Direct Xa inhibitor anticoagulants such as rivaroxaban, apixaban and edoxaban will lead to spuriously elevated antithrombin activity levels possibly masking a deficiency. Performed at: - [address] [id number] [employer] Operator: Ab Giordano MD, Phone: [phone] Complete Blood Count Auto Di ffon 09-08-2025 Basophils (Bld) [#/Vol] 0.1 10*3/uL Normal 0.0-0.2 [facility] Comment on above: Order Comment: DRAW ALL TIMED LABS AT 0500 Result Comment: PERF ORMED BY: [place] [address] PATHOLOGIST [employer] MACHINE TENDER CUCO BLOUNT M.D. Performed By: #### C BC, PT #### [place] [address] [place] Basophils/100 WBC (Bld) 1.4 % Normal . [facility] Comment on above: Order Comment: DRAW ALL TIMED LABS AT 0500 Performed By: #### C BC, PT #### [place] [address] [place] Eosinophils (Bld) [#/Vol] 0.1 10*3/uL Normal 0.0-0.45 [facility] Comment on above: Order Comment: DRAW ALL TIMED LABS AT 0500 Performed By: #### C BC, PT #### [place] [address] [place] Eosinophils/100 WBC (Bld) 1.2 % Normal . [facility] Comment on above: Order Comment: DRAW ALL TIMED LABS AT 0500 Performed By: #### C BC, PT #### [address] Erythrocyte distribution width (RBC) [Ratio] 22.4 % High 11.9-15.3 [facility] Comment on above: Order Comment: DRAW ALL TIMED LABS AT 0500 Performed By: #### C BC, PT #### [place] [address] [place] Hematocrit (Bld) [Volume fraction] 27.3 % Low 34.0-46.4 [facility] Comment on above: Order Comment: DRAW ALL TIMED LABS AT 0500 Performed By: #### C BC, PT #### [address] Hemoglobin (Bld) [Mass/Vol] 8.9 g/dL Low 11.8-15.4 [facility] Comment on above: Order Comment: DRAW ALL TIMED LABS AT 0500 Performed By: #### C BC, PT #### [address] Lymphocytes (Bld) [#/Vol] 1.3 10*3/uL Normal 1.00-4.8 [facility] Comment on above: Order Comment: DRAW ALL TIMED LABS AT 0500 Performed By: #### C BC, PT #### [address] Lymphocytes/100 WBC (Bld) 28.6 % Normal . [facility] Comment on above: Order Comment: DRAW ALL TIMED LABS AT 0500 Performed By: #### C BC, PT #### [address] MCH (RBC) [Entitic mass] 27.7 pg Normal 24.7-34.3 [facility] Comment on above: Order Comment: DRAW ALL TIMED LABS AT 0500 Performed By: #### C BC, PT #### [address] MCV (RBC) [Entitic vol] 85.3 fL Normal 80-100 [facility] Comment on above: Order Comment: DRAW ALL TIMED LABS AT 0500 Performed By: #### C BC, PT #### [address] Mean Corpuscular HGB Conc 32.5 g/dL Normal 32.0-35.0 [facility] Comment on above: Order Comment: DRAW ALL TIMED LABS AT 0500 Performed By: #### C BC, PT #### [place] [address] [place] Monocytes (Bld) [#/Vol] 0.3 10*3/uL Normal 0.0-0.8 [facility] Comment on above: Order Comment: DRAW ALL TIMED LABS AT 0500 Performed By: #### C BC, PT #### [address] Monocytes/100 WBC (Bld) 7.0 % Normal . [facility] Comment on above: Order Comment: DRAW ALL TIMED LABS AT 0500 Performed By: #### C BC, PT #### [facility] [address] [place] [address] [place] Neutrophils (Bld) [#/Vol] 2.8 10*3/uL Normal 1.8-7.7 [facility] Comment on above: Order Comment: DRAW ALL TIMED LABS AT 0500 Performed By: #### C BC, PT #### [facility] [address] [place] [id number] [place] Neutrophils/100 WBC (Bld) 61.8 % Normal . [facility] Comment on above: Order Comment: DRAW ALL TIMED LABS AT 0500 Performed By: #### C BC, PT #### [facility] [address] [place] [address] [place] NRBC% 0.1 /100{WBC} Normal 0-0.5 [facility] Comment on above: Order Comment: DRAW ALL TIMED LABS AT 0500 Performed By: #### C BC, PT #### [facility] [address] [place] [address] [place] Platelet mean volume (Bld) [Entitic vol] 7.9 fL Normal 6.3-10.7 [facility] Comment on above: Order Comment: DRAW ALL TIMED LABS AT 0500 Performed By: #### C BC, PT #### [facility] [address] [place] [id number] [place] Platelets (Bld) [#/Vol] 358 10*3/uL Normal 150-450 [facility] Comment on above: Order Comment: DRAW ALL TIMED LABS AT 0500 Performed By: #### C BC, PT #### [facility] [address] [place] [id number] [place] RBC (Bld) [#/Vol] 3.19 10*6/uL Low 3.60-5.00 [facility] Comment on above: Order Comment: DRAW ALL TIMED LABS AT 0500 Performed By: #### C BC, PT #### [facility] [address] [place] [id number] [place] WBC (Bld) [#/Vol] 4.5 10*3/uL Normal 3.8-11.6 [facility] Comment on above: Order Comment: DRAW ALL TIMED LABS AT 0500 Performed By: #### C BC, PT #### [facility] [address] White Blood Count 4.5 [CFU]/mL Normal 3.8-11.6 [facility] Comment on above: Order Comment: DRAW ALL TIMED LABS AT 0500 Performed By: #### C BC, PT #### [facility] [address] Comprehensive Metabolic Pane doris 01-31-2025 Albumin [Mass/Vol] 2.5 g/dL Low 3.5-5.7 [facility] Comment on above: Order Comment: DRAW ALL TIMED LABS AT 0500 Performed By: #### U PE RAND #### [facility] , #### URTP #### [address] Albumin/Globulin [Mass ratio] 0.9 {ratio} Normal [facility] Comment on above: Order Comment: DRAW ALL TIMED LABS AT 0500 Performed By: #### U PE RAND #### [facility] , #### URTP #### [address] ALP [Catalytic activity/Vol] 100 U/L Normal 34-104 [facility] Comment on above: Order Comment: DRAW ALL TIMED LABS AT 0500 Performed By: #### U PE RAND #### [facility] , #### URTP #### [facility] [address] [place] [address] [place] ALT [Catalytic activity/Vol] 5 U/L Low 7-52 [facility] Comment on above: Order Comment: DRAW ALL TIMED LABS AT 0500 Performed By: #### U PE RAND #### [facility] , #### URTP #### [address] Anion gap [Moles/Vol] 9.6 mmol/L Normal 6.0-15.0 [facility] Comment on above: Order Comment: DRAW ALL TIMED LABS AT 0500 Performed By: #### U PE RAND #### [facility] , #### URTP #### [facility] [address] AST [Catalytic activity/Vol] 30 U/L Normal 13-39 [facility] Comment on above: Order Comment: DRAW ALL TIMED LABS AT 0500 Performed By: #### U PE RAND #### [facility] , #### URTP #### [facility] [address] [place] [address] [place] Bilirubin [Mass/Vol] 0.4 mg/dL Normal 0.3-1.0 [facility] Comment on above: Order Comment: DRAW ALL TIMED LABS AT 0500 Performed By: #### U PE RAND #### [facility] , #### URTP #### [facility] [address] [place] [address] [place] Calcium [Mass/Vol] 8.0 mg/dL Low 8.6-10.3 [facility] Comment on above: Order Comment: DRAW ALL TIMED LABS AT 0500 Performed By: #### U PE RAND #### [facility] , #### URTP #### [facility] [address] [place] [address] [place] Chloride [Moles/Vol] 104 mmol/L Normal 98-107 [facility] Comment on above: Order Comment: DRAW ALL TIMED LABS AT 0500 Performed By: #### U PE RAND #### [facility] , #### URTP #### [facility] [address] [place] [address] [place] CO2 [Moles/Vol] 29.6 mmol/L Normal 21.0-31.0 [facility] Comment on above: Order Comment: DRAW ALL TIMED LABS AT 0500 Performed By: #### U PE RAND #### [facility] , #### URTP #### [facility] [address] Creatinine [Mass/Vol] 0.37 mg/dL Low 0.60-1.20 [facility] Comment on above: Order Comment: DRAW ALL TIMED LABS AT 0500 Performed By: #### U PE RAND #### [facility] , #### URTP #### [facility] [address] [place] [address] [place] Creatinine Clr Calc Pharmacy 181.02 Normal [facility] Comment on above: Order Comment: DRAW ALL TIMED LABS AT 0500 Performed By: #### U PE RAND #### [facility] , #### URTP #### [place] [address] [place] GFR/1.73 sq M.predicted MDRD (S/P/Bld) [Vol rate/Area] mL/min/{1.73_m2} Normal [facility] Comment on above: Order Comment: DRAW ALL TIMED LABS AT 0500 Performed By: #### U PE RAND #### [facility] , #### URTP #### [address] Globulin (S) [Mass/Vol] 2.7 g/dL Normal [facility] Comment on above: Order Comment: DRAW ALL TIMED LABS AT 0500 Performed By: #### U PE RAND #### [facility] , #### URTP #### [address] Glucose [Mass/Vol] 84 mg/dL Normal 70-100 [facility] Comment on above: Order Comment: DRAW ALL TIMED LABS AT 0500 Result Comment: [place] Glucose Reference Range is dependent on time and content of last meal. Glucose of more than 200 mg/dL in a nonstressed, ambulatory subject supports the diagnosis of Diabetes Mellitus. ADA recommended reference range Performed By: #### U PE RAND #### [facility] , #### URTP #### [facility] [address] Potassium [Moles/Vol] 3.2 mmol/L Low 3.5-5.1 [facility] Comment on above: Order Comment: DRAW ALL TIMED LABS AT 0500 Performed By: #### U PE RAND #### [facility] , #### URTP #### [facility] [address] Protein [Mass/Vol] 5.2 g/dL Low 6.4-8.9 [facility] Comment on above: Order Comment: DRAW ALL TIMED LABS AT 0500 Performed By: #### U PE RAND #### [facility] , #### URTP #### [address] Sodium [Moles/Vol] 140 mmol/L Normal 136-145 [facility] Comment on above: Order Comment: DRAW ALL TIMED LABS AT 0500 Performed By: #### U PE RAND #### [facility] , #### URTP #### [facility] [address] Urea nitrogen [Mass/Vol] 3 mg/dL Low 7-25 [facility] Comment on above: Order Comment: DRAW ALL TIMED LABS AT 0500 Performed By: #### U PE RAND #### [facility] , #### URTP #### [facility] [address] DRVVT WITH REFLEXon 02-01-20 25 DILUTE RUSSELLS VIPER VENOM 40.8 0.0 - 47.0 [facility] INTERPRETATION Comment: . [facility] Comment on above: No lupus anticoagula nt was detected. Performed at: - [address] [id number] [employer] Operator: Ab Giordano MD, Phone: [phone] PTT-LA 34.6 0.0 - 43.5 [facility] THOMAS 2 Neogenomicon 5 THOMAS 2 Neogenomic Normal [facility] Comment on above: Result Comment: See report. Scanned copy available in EMR. PERFORMED BY: [place] [address] PATHOLOGIST [employer] F[employer] MACHINE TENDER CUCO BLOUNT M.D. Performed By: #### C UU #### [facility] [address] [place] [address] Magnesiumon 01-31-2025 Magnesium [Mass/Vol] 1.9 mg/dL Normal 1.9-2.7 [facility] Comment on above: Order Comment: DRAW ALL TIMED LABS AT 0500 Result Comment: PERF ORMED BY: [place] [address] PATHOLOGIST [employer] F[employer] MACHINE TENDER CUCO BLOUNT M.D. Performed By: #### U PE RAND #### [facility] , #### URTP #### [address] No Panel Informationon 01-31 [facility] PROTEIN C FUNCTIONALon 01-31 PROTEIN C FUNCTIONAL 96 % 73 - 180 % [facility] Comment on above: Performed at: [email or web address] [address] [id number] [employer] Operator: Ab Giordano MD, Phone: [phone] PROTEIN S ANTIGENon 02-01-20 25 PROTEIN S, FREE 81 % 61 - 136 % [facility] Comment on above: Performed at: [email or web address] [address] [id number] [employer] Operator: Ab Giordano MD, Phone: [phone] PROTEIN S, TOTAL 80 % 60 - 150 % [facility] Comment on above: This test was develo ped and its performance characteristics determined by [facility]. It has not been cleared or approved by the Food and Drug Administration. [facility] PROTEIN S FUNCTIONALon 01-31 PROTEIN S [...] depending on the clinical scenario. Performed at: [facility] [address] [id number] [employer] Operator: Ab Giordano MD, Phone: [phone] [facility] Prothrombin Time INRon 01-31 INR Coag (PPP) [Relative time] 0.9 {INR} Normal [facility] Comment on above: Order [...] heart valves: 3 - 4.5 PERFORMED BY: [place] [address] PATHOLOGIST [employer] F[employer] MACHINE TENDER CUCO BLOUNT M.D. Performed By: #### C BC, PT #### [address] PT Coag (PPP) [Time] 10.8 s Normal 9.0-12.9 [facility] Comment on above: Order Comment: DRAW ALL TIMED LABS AT 0500 Result Comment: A he matocrit value greater than 55% may lead to inaccurate results in coagulation testing. Patients having hematocrit values >55% require a special collection tube for coagulation studies. Please contact the laboratory at [phone] for redraw instructions. Performed By: #### C BC, PT #### [place] [id number] [facility] US venous duplex LE BIon US venous duplex LE BI [facility] Main [place] [address] [place] [address] Ultrasound Report Signed Patient: Candy Booth MR#: [id number] : 1970 Acct:[id number] Age/Sex: 54 / F ADM Date: 01/25/25 Loc: Room: [address] [place] [address] Type: ADM IN Attending Dr: Camden Almodovar MD Ordering Provider: Barbi Nelson APRN Date of Service: 01/31/25 US/US venous duplex LE BI: dvt Copies to: Barbi Nelson, MAC Almodovar MD Bilateral lower extremity venous duplex [...] Robins M.D. 01/31/2025 9:56 AM Dictation Location: [place] [address] Tech: Lu Milner Transcribed By: RYAN 01/31/25955 Dictated By: Jayjay Robins MD 01/31/2554 Signed By: 01/31/25955 Normal [facility] Complete Blood Count Auto Di ffon 01-30-2025 Basophils (Bld) [#/Vol] 0.0 10*3/uL Normal 0.0-0.2 [facility] Comment on above: Result Comment: PERF ORMED BY: [place] [address] PATHOLOGIST [employer] F[employer] MACHINE TENDER CUCO BLOUNT M.D. Performed By: #### C UU #### [address] Basophils/100 WBC (Bld) 0.8 % Normal . [facility] Comment on above: Performed By: #### C UU #### [address] Eosinophils (Bld) [#/Vol] 0.1 10*3/uL Normal 0.0-0.45 [facility] Comment on above: Performed By: #### C UU #### [address] Eosinophils/100 WBC (Bld) 1.9 % Normal . [facility] Comment on above: Performed By: #### C UU #### [address] Erythrocyte distribution width (RBC) [Ratio] 21.1 % High 11.9-15.3 [facility] Comment on above: Performed By: #### C UU #### [address] Hematocrit (Bld) [Volume fraction] 27.8 % Low 34.0-46.4 [facility] Comment on above: Performed By: #### C UU #### [address] Hemoglobin (Bld) [Mass/Vol] 9.2 g/dL Low 11.8-15.4 [facility] Comment on above: Performed By: #### C UU #### [address] Lymphocytes (Bld) [#/Vol] 1.1 10*3/uL Normal 1.00-4.8 [facility] Comment on above: Performed By: #### C UU #### [address] Lymphocytes/100 WBC (Bld) 27.2 % Normal . [facility] Comment on above: Performed By: #### C UU #### [address] MCH (RBC) [Entitic mass] 28.4 pg Normal 24.7-34.3 [facility] Comment on above: Performed By: #### C UU #### [address] MCV (RBC) [Entitic vol] 85.5 fL Normal 80-100 [facility] Comment on above: Performed By: #### C UU #### [address] Mean Corpuscular HGB Conc 33.2 g/dL Normal 32.0-35.0 [facility] Comment on above: Performed By: #### C UU #### [address] Monocytes (Bld) [#/Vol] 0.3 10*3/uL Normal 0.0-0.8 [facility] Comment on above: Performed By: #### C UU #### [address] Monocytes/100 WBC (Bld) 7.6 % Normal . [facility] Comment on above: Performed By: #### C UU #### [address] Neutrophils (Bld) [#/Vol] 2.6 10*3/uL Normal 1.8-7.7 [facility] Comment on above: Performed By: #### C UU #### [address] Neutrophils/100 WBC (Bld) 62.5 % Normal . [facility] Comment on above: Performed By: #### C UU #### [address] NRBC% 0.2 /100{WBC} Normal 0-0.5 [facility] Comment on above: Performed By: #### C UU #### [address] Platelet mean volume (Bld) [Entitic vol] 7.7 fL Normal 6.3-10.7 [facility] Comment on above: Performed By: #### C UU #### [address] Platelets (Bld) [#/Vol] 322 10*3/uL Normal 150-450 [facility] Comment on above: Performed By: #### C UU #### [address] RBC (Bld) [#/Vol] 3.25 10*6/uL Low 3.60-5.00 [facility] Comment on above: Performed By: #### C UU #### [address] WBC (Bld) [#/Vol] 4.2 10*3/uL Normal 3.8-11.6 [facility] Comment on above: Performed By: #### C UU #### [address] White Blood Count 4.2 [CFU]/mL Normal 3.8-11.6 [facility] Comment on above: Performed By: #### C UU #### [address] Comprehensive Metabolic Pane doris 01-30-2025 Albumin [Mass/Vol] 2.5 g/dL Low 3.5-5.7 [facility] Comment on above: Performed By: #### C UU #### [address] Albumin/Globulin [Mass ratio] 0.9 {ratio} Normal [facility] Comment on above: Performed By: #### C UU #### [address] ALP [Catalytic activity/Vol] 99 U/L Normal 34-104 [facility] Comment on above: Performed By: #### C UU #### [place] [address] [place] ALT [Catalytic activity/Vol] 5 U/L Low 7-52 [facility] Comment on above: Performed By: #### C UU #### [address] Anion gap [Moles/Vol] 10.4 mmol/L Normal 6.0-15.0 [facility] Comment on above: Performed By: #### C UU #### [address] AST [Catalytic activity/Vol] 35 U/L Normal 13-39 [facility] Comment on above: Performed By: #### C UU #### [address] Bilirubin [Mass/Vol] 0.5 mg/dL Normal 0.3-1.0 [facility] Comment on above: Performed By: #### C UU #### [place] [address] [place] Calcium [Mass/Vol] 7.9 mg/dL Low 8.6-10.3 [facility] Comment on above: Performed By: #### C UU #### [place] [address] [place] Chloride [Moles/Vol] 104 mmol/L Normal 98-107 [facility] Comment on above: Performed By: #### C UU #### [place] [address] [place] CO2 [Moles/Vol] 28.9 mmol/L Normal 21.0-31.0 [facility] Comment on above: Performed By: #### C UU #### [address] Creatinine [Mass/Vol] 0.42 mg/dL Low 0.60-1.20 [facility] Comment on above: Performed By: #### C UU #### [place] [address] [place] Creatinine Clr Calc Pharmacy 160.89 Normal [facility] Comment on above: Performed By: #### C UU #### [place] [address] [place] GFR/1.73 sq M.predicted MDRD (S/P/Bld) [Vol rate/Area] mL/min/{1.73_m2} Normal [facility] Comment on above: Performed By: #### C UU #### [address] Globulin (S) [Mass/Vol] 2.9 g/dL Normal [facility] Comment on above: Performed By: #### C UU #### [address] Glucose [Mass/Vol] 89 mg/dL Normal 70-100 [facility] Comment on above: Result Comment: [facility] Glucose Reference Range is dependent on time and content of last meal. Glucose of more than 200 mg/dL in a nonstressed, ambulatory subject supports the diagnosis of Diabetes Mellitus. ADA recommended reference range Performed By: #### C UU #### [address] Potassium [Moles/Vol] 3.3 mmol/L Low 3.5-5.1 [facility] Comment on above: Performed By: #### C UU #### [address] Protein [Mass/Vol] 5.4 g/dL Low 6.4-8.9 [facility] Comment on above: Performed By: #### C UU #### [place] [address] [place] Sodium [Moles/Vol] 140 mmol/L Normal 136-145 [facility] Comment on above: Performed By: #### C UU #### [address] Urea nitrogen [Mass/Vol] 3 mg/dL Low 7-25 [facility] Comment on above: Performed By: #### C UU #### [address] Magnesiumon 01-30-2025 Magnesium [Mass/Vol] 1.8 mg/dL Low 1.9-2.7 [facility] Comment on above: Result Comment: PERF ORMED BY: [place] [address] PATHOLOGIST [employer] MACHINE TENDER CUCO BLOUNT M.D. Performed By: #### C UU #### [address] Anticardiolipin IgG/M/A, Qno n 01-29-2025 Anticardiolipin Ab, IgA,Qn <9 Normal 0-11 [facility] Comment on above: Result Comment: Nega tive: <12 Indeterminate: 12 - 20 Low-Med Positive: >20 - 80 High Positive: >80 Performed at: [facility] [place] [address] [employer] Operator: Marcelo Parikh PhD, Phone: [phone] Performed By: #### C MP, CBC, MG #### [address] Anticardiolipin Ab, IgG,Qn <9 Normal 0-14 [facility] Comment on above: Result Comment: Nega tive: <15 Indeterminate: 15 - 20 Low-Med Positive: >20 - 80 High Positive: >80 Performed By: #### C MP, CBC, MG #### [address] Anticardiolipin Ab, IgM,Qn <9 Normal 0-12 [facility] Comment on above: Result Comment: Nega tive: <13 Indeterminate: 13 - 20 Low-Med Positive: >20 - 80 High Positive: >80 Performed By: #### C MP, CBC, MG #### [place] [address] [place] Antithrombin Activityon 09- Antithrombin Activity 97 % Normal 75-135 [facility] Comment on above: Result Comment: Dire ct Xa inhibitor anticoagulants such as rivaroxaban, apixaban and edoxaban will lead to spuriously elevated antithrombin activity levels possibly masking a deficiency. Performed at: - [facility] [id number] [employer] Operator: Ab Giordano MD, Phone: [phone] PERFORMED BY: [place] [address] PATHOLOGIST [employer] F[employer] MACHINE TENDER CUCO BLOUNT M.D. Performed By: #### C MP, CBC, MG #### [address] Beta 2 Glycoprotein I Ab IgG Be 01-29-2025 Beta 2 Glycoprotein I Ab, IgA <9 Normal 0-25 [facility] Comment on above: Result Comment: Resu lt Units: GPI IgA units Performed By: #### C MP, CBC, MG #### [address] Beta 2 Glycoprotein I Ab, IgG <9 Normal 0-20 [facility] Comment on above: Result Comment: Resu lt Units: GPI IgG units Performed By: #### C MP, CBC, MG #### [place] [address] [place] Beta 2 Glycoprotein I Ab, IgM <9 Normal 0-32 [facility] Comment on above: Result Comment: Resu lt Units: GPI IgM units Performed at: - [facility] [address] [id number] [employer] Operator: Marcelo Parikh PhD, Phone: [phone] Performed By: #### C MP, CBC, MG #### [address] Complete Blood Count Auto Di ffon 01-29-2025 Basophils (Bld) [#/Vol] 0.0 10*3/uL Normal 0.0-0.2 [facility] Comment on above: Result Comment: PERF ORMED BY: [place] [address] PATHOLOGIST L[employer] F[employer] MACHINE TENDER CUCO BLOUNT M.D. Performed By: #### C MP, CBC, MG #### [facility] [address] [place] [address] [place] Basophils/100 WBC (Bld) 1.0 % Normal . [facility] Comment on above: Performed By: #### C MP, CBC, MG #### [facility] [address] [place] [address] [place] Eosinophils (Bld) [#/Vol] 0.1 10*3/uL Normal 0.0-0.45 [facility] Comment on above: Performed By: #### C MP, CBC, MG #### [facility] [address] [place] [address] [place] Eosinophils/100 WBC (Bld) 3.5 % Normal . [facility] Comment on above: Performed By: #### C MP, CBC, MG #### [address] Erythrocyte distribution width (RBC) [Ratio] 21.2 % High 11.9-15.3 [facility] Comment on above: Performed By: #### C MP, CBC, MG #### [facility] [address] [place] [address] [place] Hematocrit (Bld) [Volume fraction] 28.1 % Low 34.0-46.4 [facility] Comment on above: Performed By: #### C MP, CBC, MG #### [facility] [address] [place] [address] [place] Hemoglobin (Bld) [Mass/Vol] 9.3 g/dL Low 11.8-15.4 [facility] Comment on above: Performed By: #### C MP, CBC, MG #### [facility] [address] [place] [address] [place] Lymphocytes (Bld) [#/Vol] 1.4 10*3/uL Normal 1.00-4.8 [facility] Comment on above: Performed By: #### C MP, CBC, MG #### [facility] [address] [place] [address] [place] Lymphocytes/100 WBC (Bld) 34.9 % Normal . [facility] Comment on above: Performed By: #### C MP, CBC, MG #### [address] MCH (RBC) [Entitic mass] 28.1 pg Normal 24.7-34.3 [facility] Comment on above: Performed By: #### C MP, CBC, MG #### [address] MCV (RBC) [Entitic vol] 85.2 fL Normal 80-100 [facility] Comment on above: Performed By: #### C MP, CBC, MG #### [address] Mean Corpuscular HGB Conc 33.0 g/dL Normal 32.0-35.0 [facility] Comment on above: Performed By: #### C MP, CBC, MG #### [address] Monocytes (Bld) [#/Vol] 0.4 10*3/uL Normal 0.0-0.8 [facility] Comment on above: Performed By: #### C MP, CBC, MG #### [address] Monocytes/100 WBC (Bld) 9.0 % Normal . [facility] Comment on above: Performed By: #### C MP, CBC, MG #### [address] Neutrophils (Bld) [#/Vol] 2.1 10*3/uL Normal 1.8-7.7 [facility] Comment on above: Performed By: #### C MP, CBC, MG #### [address] Neutrophils/100 WBC (Bld) 51.6 % Normal . [facility] Comment on above: Performed By: #### C MP, CBC, MG #### [address] NRBC% 0.2 /100{WBC} Normal 0-0.5 [facility] Comment on above: Performed By: #### C MP, CBC, MG #### [address] Platelet mean volume (Bld) [Entitic vol] 7.8 fL Normal 6.3-10.7 [facility] Comment on above: Performed By: #### C MP, CBC, MG #### [address] Platelets (Bld) [#/Vol] 297 10*3/uL Normal 150-450 [facility] Comment on above: Performed By: #### C MP, CBC, MG #### [address] RBC (Bld) [#/Vol] 3.29 10*6/uL Low 3.60-5.00 [facility] Comment on above: Performed By: #### C MP, CBC, MG #### [address] WBC (Bld) [#/Vol] 4.0 10*3/uL Normal 3.8-11.6 [facility] Comment on above: Performed By: #### C MP, CBC, MG #### [address] White Blood Count 4.0 [CFU]/mL Normal 3.8-11.6 [facility] Comment on above: Performed By: #### C MP, CBC, MG #### [address] Comprehensive Metabolic Pane doris 01-29-2025 Albumin [Mass/Vol] 2.6 g/dL Low 3.5-5.7 [facility] Comment on above: Performed By: #### C MP, CBC, MG #### [address] ALP [Catalytic activity/Vol] 100 U/L Normal 34-104 [facility] Comment on above: Performed By: #### C MP, CBC, MG #### [address] ALT [Catalytic activity/Vol] 6 U/L Low 7-52 [facility] Comment on above: Performed By: #### C MP, CBC, MG #### [address] Anion gap [Moles/Vol] 8.9 mmol/L Normal 6.0-15.0 [facility] Comment on above: Performed By: #### C MP, CBC, MG #### [address] AST [Catalytic activity/Vol] 36 U/L Normal 13-39 [facility] Comment on above: Performed By: #### C MP, CBC, MG #### [address] Bilirubin [Mass/Vol] 0.5 mg/dL Normal 0.3-1.0 [facility] Comment on above: Performed By: #### C MP, CBC, MG #### [address] Calcium [Mass/Vol] 7.9 mg/dL Low 8.6-10.3 [facility] Comment on above: Performed By: #### C MP, CBC, MG #### [address] Chloride [Moles/Vol] 105 mmol/L Normal 98-107 [facility] Comment on above: Performed By: #### C MP, CBC, MG #### [address] CO2 [Moles/Vol] 28.4 mmol/L Normal 21.0-31.0 [facility] Comment on above: Performed By: #### C MP, CBC, MG #### [address] Creatinine [Mass/Vol] 0.37 mg/dL Low 0.60-1.20 [facility] Comment on above: Performed By: #### C MP, CBC, MG #### [place] [address] [place] Creatinine Clr Calc Pharmacy 184.45 Normal [facility] Comment on above: Performed By: #### C MP, CBC, MG #### [address] GFR/1.73 sq M.predicted MDRD (S/P/Bld) [Vol rate/Area] mL/min/{1.73_m2} Normal [facility] Comment on above: Performed By: #### C MP, CBC, MG #### [address] Globulin (S) [Mass/Vol] 2.8 g/dL Normal [facility] Comment on above: Performed By: #### C MP, CBC, MG #### [address] Glucose [Mass/Vol] 77 mg/dL Normal 70-100 [facility] Comment on above: Result Comment: [place] Glucose Reference Range is dependent on time and content of last meal. Glucose of more than 200 mg/dL in a nonstressed, ambulatory subject supports the diagnosis of Diabetes Mellitus. ADA recommended reference range Performed By: #### C MP, CBC, MG #### [address] Potassium [Moles/Vol] 3.3 mmol/L Low 3.5-5.1 [facility] Comment on above: Performed By: #### C MP, CBC, MG #### [address] Protein [Mass/Vol] 5.4 g/dL Low 6.4-8.9 [facility] Comment on above: Performed By: #### C MP, CBC, MG #### [address] Sodium [Moles/Vol] 139 mmol/L Normal 136-145 [facility] Comment on above: Performed By: #### C MP, CBC, MG #### [address] Urea nitrogen [Mass/Vol] 2 mg/dL Low 7-25 [facility] Comment on above: Performed By: #### C MP, CBC, MG #### [address] Creatinine (U) [Mass/Vol]on 01-29-2025 Creatinine spec 2 (U) [Mass/Vol] 17 mg/dL [facility] Comment on above: No reference range e stablished Creatinine, Urine (Random)on 01-29-2025 Creatinine, Urine (Random) 17.00 mg/dL Normal [facility] Comment on above: Result Comment: No r eference range established PERFORMED BY: [place] [address] PATHOLOGIST [employer] MACHINE TENDER CUCO BLOUNT M.D. Performed By: #### C UU #### [address] DRVVT with Reflexon 01-30-20 25 Dilute [place] Viper Venom 40.8 Normal 0.0-47.0 [facility] Comment on above: Performed By: #### C MP, CBC, MG #### [address] Interpretation Comment: Normal . [facility] Comment on above: Result Comment: No l upus anticoagulant was detected. Performed at: BN - [address] [id number] Pulverizer Mill Operator: Ab Giordano MD, Phone: [phone] PERFORMED BY: [place] [address] PATHOLOGIST LINK WIRE FABRIC MACHINE TENDER UCCO BLOUNT M.D. Performed By: #### C MP, CBC, MG #### [address] PTT-LA 34.6 Normal 0.0-43.5 [facility] Comment on above: Performed By: #### C MP, CBC, MG #### [address] Factor II DNA Analysison Additional Information Comment Normal . [facility] Comment on above: Result Comment: Tech nical Component performed at [facility] [place] Professional Component performed by: Gildardo Moore, PhD, [facility] [id number], [facility], [address] [facility] [place] [address] Performed at: TG - [facility] [place] [address] [facility], [place], [place] [id number] Pulverizer Mill Operator: Diego Patel [facility], Phone: [phone] PERFORMED BY: [place] [address] PATHOLOGIST LINK WIRE FABRIC MACHINE TENDER CUCO BLOUNT M.D. Performed By: #### C MP, CBC, MG #### [address] Factor II, DNA Analysis Comment Normal . [facility] Comment on above: Result [...] the F2 gene and a c.1601G>A (p. [id number]) variant in the F5 gene (commonly referred to as Factor V Leiden) have an approximately 20- fold increased risk for venous thromboembolism. Risks are likely to be even higher in more complex genotype combinations involving the F2 c.*97G>A variant and Factor V Leiden (PMID: 62800665). Additional risk factors include but are not [...] health care providers to discuss results at [phone] ([phone]). Test Details: Variant analyzed: c.*97G>A, previously referred to as [id number] Methods/Limitations: DNA analysis of the F2 gene [...] developed and its performance characteristics determined by [employer]. It has not been cleared or approved by the Food and Drug Administration. References: Triston Santos, Rebecca PATINO, Eagle R, Marissa WW, Jamaal JH; ACMG Professional Practice and Guidelines Committee. Addendum: [employer] consensus statement on factor V Leiden mutation testing. Velma Med. 2020Jul 28. doi: 10.1038/[id number]-t. PMID: 24136251. Mike GLOVER. Prothrombin Thrombophilia. 2005Dec 17 [Updated 2020Jun 29]. In: Itz MP, Angeline HH, Matthew RA, et al., editors. Adriel(R) [Internet]. [place] ([place]): [facility]; 9253-3107. Available from: https://www.ncbi.nlm.nih.gov/books/CWC3286/ Kamari Santos, Rebecca PATINO, David X, Humberto B, Charly EB, Missy P, Dimas CS; [facility] Laboratory Assistant Manager Pt Committee. Venous thromboembolism laboratory testing (factor V Leiden and factor II c.*97G>A), 2018 update: a technical standard of the [employer] (ACMG). Velma Med. 2017;20(12):0128-1263. doi: 10.1038/[id number]-d. Epub 2017Feb 27. PMID: 14515572. Performed By: #### C MP, CBC, MG #### [facility] [address] [id number] [facility] Factor V Leiden Mutationon 0 01-29-2025 Factor V Leiden Comment Critically abnormal . 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 See Additional Clinical Information and Comments. Additional Clinical Information: Venous thromboembolism is a multifactorial disease influenced by genetic, environmental, and circumstantial risk factors. The c.1601G>A (p. Bkt299Ckt) variant in the F5 gene, commonly referred [...] c.*97G>A variant and Factor V Leiden (PMID: 31705681). Additional risk factors include but are not [...] health care providers to discuss results at [phone]). Test Details: Variant Analyzed: c.1601G>A (p. Hbk640Tsf), referred to as Factor V Leiden Methods/Limitations: [...] developed and its performance characteristics determined by [employer]. It has not been cleared or approved by the Food and Drug Administration. References: Triston Satnos, Rebecca PATINO, Eagle R, Marissa WW, Jamaal JH; ACMG Professional Practice and Guidelines Committee. Addendum: [employer] [employer] consensus statement on factor V Leiden mutation testing. Velma Med. 2020Jul 28. doi: 10.1038/[id number]-f. PMID: 55334788. Mike GLOVER. Factor V Leiden Thrombophilia. 1998October 06 (Updated 2017May 29). In: Itz MP, Angeline HH, Matthew RA, et al., editors. Deolan(R) (Internet). [place] ([place]): [facility] [place]; 8860-1531. Available from: https://www.ncbi.nlm.nih.gov/books/JOE8291/ Kamari S, Rebecca PATINO, David X, Humberto B, Charly EB, Missy P, Dimas CS; ACMG Laboratory Assistant Manager Pt Committee. Venous thromboembolism laboratory testing (factor V Leiden and factor II c. *97G>A), 2018 update: a technical standard of the [employer] [employer] (ACMG). Velma Med. 2018 Apr;20(12): 3942-7332. doi: 10.1038/[id number]-r. Epub 2017Feb 27. PMID: 18932191. Performed By: #### C MP, CBC, MG #### [place] [address] [place] Reviewed by: Comment Normal . [facility] Comment on above: Result Comment: [facility], Ph.D., FACMG Performed at: TG - [facility] [place] [address] [place], [place] [id number] Pulverizer Mill Operator: Diego Patel [facility], Phone: [phone] Performed By: #### C MP, CBC, MG #### [address] Fibrinogenon 01-29-2025 Fibrinogen 333 mg/dL Normal 200-393 [facility] Comment on above: Result Comment: A he matocrit value greater than 55% may lead to inaccurate results in coagulation testing. Patients having hematocrit values >55% require a special collection tube for coagulation studies. Please contact the laboratory at [phone] for redraw instructions. PERFORMED BY: [place] [address] PATHOLOGIST LINK WIRE FABRIC MACHINE TENDER CUCO BLOUNT M.D. Performed By: #### C UU #### [address] Fibrinogen Coag (PPP) [Mass/ Vol]on 01-29-2025 FIBRINOGEN 333 mg/dL 200 - 393 mg/dL [facility] Comment on above: A hematocrit value g reater than 55% may lead to inaccurate results in coagulation testing. Patients having hematocrit values >55% require a special collection tube for coagulation studies. Please contact the laboratory at [phone] for redraw instructions. Magnesiumon 01-29-2025 Magnesium [Mass/Vol] 1.6 mg/dL Low 1.9-2.7 [facility] Comment on above: Result Comment: PERF ORMED BY: [place] [address] PATHOLOGIST LINK WIRE FABRIC MACHINE TENDER CUCO BLOUNT M.D. Performed By: #### C MP, CBC, MG #### [address] No Panel Informationon 01-29 [facility] PT Coag (Bld) [Time]on 01-29 INR Coag (PPP) [Relative time] 0.9 {INR} [facility] Comment on above: INR Therapeutic Rang e [...] 10.8 s 9.0 - 12.9 s NO [facility] Comment on above: A hematocrit value g reater than 55% may lead to inaccurate results in coagulation testing. Patients having hematocrit values >55% require a special collection tube for coagulation studies. Please contact the laboratory at [phone] for redraw instructions. Prot Electrophor w/reflex IF Constantin 01-29-2025 Albumin [Mass/Vol] 2.4 g/dL Normal 2.9-4.4 [facility] Comment on above: Performed By: #### C MP, CBC, MG #### [facility] [address] Albumin/Globulin [Mass ratio] 0.9 {ratio} Normal [facility] Comment on above: Performed By: #### C MP, CBC, MG #### [facility] [address] [id number] [place] Varaz-9-Xxearftl 0.2 g/dL Normal 0.0-0.4 [facility] Comment on above: Performed By: #### C MP, CBC, MG #### [facility] [address] [id number] [place] Bswnx-5-Knwsdmsc 0.7 g/dL Normal 0.4-1.0 [facility] Comment on above: Performed By: #### C MP, CBC, MG #### [facility] [address] [place] [address] [place] Beta Globulin 1.0 g/dL Normal 0.7-1.3 [facility] Comment on above: Performed By: #### C MP, CBC, MG #### [facility] [address] [place] [address] [place] Gamma Globulin 0.8 g/dL Normal 0.4-1.8 [facility] Comment on above: Performed By: #### C MP, CBC, MG #### [facility] [address] Globulin (S) [Mass/Vol] 2.7 g/dL Normal 2.2-3.9 [facility] Comment on above: Performed By: #### C MP, CBC, MG #### [address] Immunofixation Reflex . Normal . [facility] Comment on above: Performed By: #### C MP, CBC, MG #### [facility] [address] Immunofixation Result Comment: Normal . [facility] Comment on above: Result Comment: Pres ence of monoclonal protein is unclear at this time. Suggest repeat in 3 to 6 months if clinically indicated. Performed at: - [place] [id number] Pulverizer Mill Operator: Marcelo Parikh PhD, Phone: [phone] Performed By: #### C MP, CBC, MG #### [address] M-Jerman Comment: Normal Not Observed [facility] Comment on above: Result Comment: SPE shows asymmetrical gamma. Performed By: #### C MP, CBC, MG #### [address] Protein [Mass/Vol] 5.1 g/dL Normal 6.0-8.5 [facility] Comment on above: Performed By: #### C MP, CBC, MG #### [address] SPE-Note Comment Normal . [facility] Comment on above: Result Comment: Prot ein electrophoresis scan will follow via computer, mail, or slitting and shipping supervisor delivery. Performed By: #### C MP, CBC, MG #### [address] Protein C Antigenon 01-30-20 25 Protein C Antigen 70 % Normal 60-150 [facility] Comment on above: Result Comment: Perf ormed at: BN - [facility] [address] [id number] Pulverizer Mill Operator: Ab Giordano MD, Phone: [phone] PERFORMED BY: [place] [address] PATHOLOGIST LINK WIRE FABRIC MACHINE TENDER CUCO BLOUNT M.D. Performed By: #### C MP, CBC, MG #### [place] [address] [place] Protein C Functionalon 01-29 Protein C Functional 96 % Normal 73-180 [facility] Comment on above: Result Comment: Perf ormed at: BN - [facility] [address] [id number] Pulverizer Mill Operator: Ab Giordano MD, Phone: [phone] PERFORMED BY: [place] [address] PATHOLOGIST LINK WIRE FABRIC MACHINE TENDER CUCO BLOUNT M.D. Performed By: #### C MP, CBC, MG #### [place] [address] [place] Protein Electro, Random Urin constantin 01-29-2025 Albumin, Urine 34.0 % Normal . [facility] Comment on above: Performed By: #### U PE RAND #### [facility] , #### [place] #### [place] [address] [place] Dgfil-5-Elcvdjvl, Urine 4.2 % Normal . [facility] Comment on above: Performed By: #### U PE RAND #### [facility] , #### [place] #### [place] [address] [place] Cyyww-4-Xuebfuqo, Urine 8.4 % Normal . [facility] Comment on above: Performed By: #### U PE RAND #### [facility] , #### [place] #### [place] [address] [place] Beta Globulin, Urine 22.3 % Normal . [facility] Comment on above: Performed By: #### U PE RAND #### [facility] , #### [place] #### [address] Gamma Globulin, Urine 31.0 % Normal . [facility] Comment on above: Performed By: #### U PE RAND #### [facility] , #### [place] #### [address] M-Jerman % Not Observed Normal Not Observed [facility] Comment on above: Performed By: #### U PE RAND #### [facility] , #### [place] #### [address] Please Note: Comment Normal . [facility] Comment on above: Result Comment: Prot ein electrophoresis scan will follow via computer, mail, or slitting and shipping supervisor delivery. Performed at: - [facility] [id number] Pulverizer Mill Operator: Marcelo Parikh PhD, Phone: [phone] PERFORMED BY: [place] [address] PATHOLOGIST LINK WIRE FABRIC MACHINE TENDER CUCO BLOUNT M.D. Performed By: #### U PE RAND #### [facility] , #### [place] #### [address] Protein (U) [Mass/Vol] 5.7 mg/dL Normal Not Estab. [facility] Comment on above: Performed By: #### U PE RAND #### [facility] , #### [place] #### [address] Protein S Antigenon 01-30-20 25 Protein S, Free 81 % Normal 61-136 [facility] Comment on above: Result Comment: Perf ormed at: [facility] - [facility] [id number] Pulverizer Mill Operator: Ab Giordano MD, Phone: [phone] PERFORMED BY: [address] [place] [address] PATHOLOGIST LINK WIRE FABRIC MACHINE TENDER CUCO BLOUNT M.D. Performed By: #### C MP, CBC, MG #### [facility] [address] [id number] [facility] Protein S, Total 80 % Normal 60-150 [facility] Comment on above: Result Comment: This test was developed and its performance characteristics determined by [facility]. It has not been cleared or approved by the Food and Drug Administration. Performed By: #### C MP, CBC, MG #### [facility] [address] [id number] [facility] Protein S Functionalon 01-29 Protein S Functional 59 % Normal 63-140 [facility] Comment on above: Result [...] on the clinical scenario. Performed at: - [facility] [id number] Pulverizer Mill Operator: Ab Giordano MD, Phone: [phone] PERFORMED BY: [place] [address] PATHOLOGIST LINK WIRE FABRIC MACHINE TENDER CUCO BLOUNT M.D. Performed By: #### C MP, CBC, MG #### [address] Prothrombin Time INRon 01-29 INR Coag (PPP) [Relative time] 0.9 {INR} Normal [facility] Comment on above: Result [...] valves: 3 - 4.5 Performed By: #### C UU #### [address] PT Coag (PPP) [Time] 10.8 s Normal 9.0-12.9 [facility] Comment on above: Result Comment: A he matocrit value greater than 55% may lead to inaccurate results in coagulation testing. Patients having hematocrit values >55% require a special collection tube for coagulation studies. Please contact the laboratory at [phone] for redraw instructions. Performed By: #### C UU #### [address] Reflex to IFEon 01-29-2025 Immunoglobulin A, Serum 488 mg/dL Normal 87-352 [facility] Comment on above: Performed By: #### C MP, CBC, MG #### [address] Immunoglobulin G 1052 mg/dL Normal 586-1602 [facility] Comment on above: Performed By: #### C MP, CBC, MG #### [address] Immunoglobulin M, Serum 105 mg/dL Normal 26-217 [facility] Comment on above: Result Comment: PERF ORMED BY: [place] [address] PATHOLOGIST LINK WIRE FABRIC MACHINE TENDER CUCO BLOUNT M.D. Performed By: #### C MP, CBC, MG #### [address] TOTAL PROTEIN, URINEon 01-29 Protein (U) [Mass/Vol] 7 mg/dL 0 - 9 mg/dL [facility] Total Protein, Urineon 01-29 Protein (U) [Mass/Vol] 7 mg/dL Normal 0-9 [facility] Comment on above: Result Comment: PERF ORMED BY: [place] [address] PATHOLOGIST LINK WIRE FABRIC MACHINE TENDER CUCO BLOUNT M.D. Performed By: #### U PE RAND #### [facility] , #### [place] #### [address] US venous duplex LE BIon US venous duplex LE BI [facility] Main [place] [address] [place] [address] Ultrasound Report Signed Patient: Candy Booth MR#: [id number] : 1970 Acct:[id number] Age/Sex: 54 / F ADM Date: 01/25/25 Loc: Room: [address] [place] [address] Type: ADM IN Attending Dr: Camden Almodovar MD Ordering Provider: Jayjay Robins MD Date of Service: 01/28/25 US/US venous duplex LE BI: r/o progression dvt on friday Copies to: MD Camdne Freeman MD Bilateral lower extremity venous duplex [...] Robins M.D. 01/29/2025 9:46 AM Dictation Location: [place] [address] Tech: Lu Milner Transcribed By: RYAN 01/29/25945 Dictated By: Jayjay Robins MD 01/29/25944 Signed By: 01/29/25945 Normal [facility] Basic Metabolic Panelon Anion gap [Moles/Vol] 10.5 mmol/L Normal 6.0-15.0 [facility] Comment on above: Performed By: #### C MP, CBC, MG #### [address] Calcium [Mass/Vol] 7.7 mg/dL Low 8.6-10.3 [facility] Comment on above: Performed By: #### C MP, CBC, MG #### [address] Chloride [Moles/Vol] 105 mmol/L Normal 98-107 [facility] Comment on above: Performed By: #### C MP, CBC, MG #### [address] CO2 [Moles/Vol] 27.4 mmol/L Normal 21.0-31.0 [facility] Comment on above: Performed By: #### C MP, CBC, MG #### [address] Creatinine [Mass/Vol] 0.37 mg/dL Low 0.60-1.20 [facility] Comment on above: Performed By: #### C MP, CBC, MG #### [place] [address] [place] Creatinine Clr Calc Pharmacy 184.45 Normal [facility] Comment on above: Result Comment: PERF ORMED BY: [place] [address] PATHOLOGIST LINK WIRE FABRIC MACHINE TENDER CUCO S JOSE ALEJANDRO M.D. Performed By: #### C MP, CBC, MG #### [address] GFR/1.73 sq M.predicted MDRD (S/P/Bld) [Vol rate/Area] mL/min/{1.73_m2} Normal [facility] Comment on above: Performed By: #### C MP, CBC, MG #### [address] Glucose [Mass/Vol] 91 mg/dL Normal 70-100 [facility] Comment on above: Result Comment: [facility] Glucose Reference Range is dependent on time and content of last meal. Glucose of more than 200 mg/dL in a nonstressed, ambulatory subject supports the diagnosis of Diabetes Mellitus. ADA recommended reference range Performed By: #### C MP, CBC, MG #### [address] Potassium [Moles/Vol] 2.9 mmol/L Off scale low 3.5-5.1 [facility] Comment on above: Result Comment: Crit ical Result Called to and read back by: NELI GASTELUM at: 01/28/2025 08:53:49 by:WILLIAM Performed By: #### C MP, CBC, MG #### [address] Sodium [Moles/Vol] 140 mmol/L Normal 136-145 [facility] Comment on above: Performed By: #### C MP, CBC, MG #### [address] Urea nitrogen [Mass/Vol] 2 mg/dL Low 7-25 [facility] Comment on above: Performed By: #### C MP, CBC, MG #### [address] Complete Blood Count Auto Di ffon 01-28-2025 Basophils (Bld) [#/Vol] 0.0 10*3/uL Normal 0.0-0.2 [facility] Comment on above: Result Comment: PERF ORMED BY: [address] [place] [address] PATHOLOGIST LINK WIRE FABRIC MACHINE TENDER CUCO BLOUNT M.D. Performed By: #### C MP, CBC, MG #### [address] Basophils/100 WBC (Bld) 0.6 % Normal . [facility] Comment on above: Performed By: #### C MP, CBC, MG #### [address] Eosinophils (Bld) [#/Vol] 0.1 10*3/uL Normal 0.0-0.45 [facility] Comment on above: Performed By: #### C MP, CBC, MG #### [address] Eosinophils/100 WBC (Bld) 2.4 % Normal . [facility] Comment on above: Performed By: #### C MP, CBC, MG #### [address] Erythrocyte distribution width (RBC) [Ratio] 20.5 % High 11.9-15.3 [facility] Comment on above: Performed By: #### C MP, CBC, MG #### [address] Hematocrit (Bld) [Volume fraction] 29.0 % Low 34.0-46.4 [facility] Comment on above: Performed By: #### C MP, CBC, MG #### [address] Hemoglobin (Bld) [Mass/Vol] 9.5 g/dL Low 11.8-15.4 [facility] Comment on above: Performed By: #### C MP, CBC, MG #### [address] Lymphocytes (Bld) [#/Vol] 1.1 10*3/uL Normal 1.00-4.8 [facility] Comment on above: Performed By: #### C MP, CBC, MG #### [address] [address] [place] Lymphocytes/100 WBC (Bld) 27.5 % Normal . [facility] Comment on above: Performed By: #### C MP, CBC, MG #### [address] MCH (RBC) [Entitic mass] 27.8 pg Normal 24.7-34.3 [facility] Comment on above: Performed By: #### C MP, CBC, MG #### [address] MCV (RBC) [Entitic vol] 85.5 fL Normal 80-100 [facility] Comment on above: Performed By: #### C MP, CBC, MG #### [address] Mean Corpuscular HGB Conc 32.6 g/dL Normal 32.0-35.0 [facility] Comment on above: Performed By: #### C MP, CBC, MG #### [address] Monocytes (Bld) [#/Vol] 0.4 10*3/uL Normal 0.0-0.8 [facility] Comment on above: Performed By: #### C MP, CBC, MG #### [address] Monocytes/100 WBC (Bld) 11.1 % Normal . [facility] Comment on above: Performed By: #### C MP, CBC, MG #### [address] Neutrophils (Bld) [#/Vol] 2.3 10*3/uL Normal 1.8-7.7 [facility] Comment on above: Performed By: #### C MP, CBC, MG #### [address] Neutrophils/100 WBC (Bld) 58.4 % Normal . [facility] Comment on above: Performed By: #### C MP, CBC, MG #### [place] [address] [place] NRBC% 0.1 /100{WBC} Normal 0-0.5 [facility] Comment on above: Performed By: #### C MP, CBC, MG #### [address] Platelet mean volume (Bld) [Entitic vol] 7.9 fL Normal 6.3-10.7 [facility] Comment on above: Performed By: #### C MP, CBC, MG #### [address] Platelets (Bld) [#/Vol] 266 10*3/uL Normal 150-450 [facility] Comment on above: Performed By: #### C MP, CBC, MG #### [address] RBC (Bld) [#/Vol] 3.40 10*6/uL Low 3.60-5.00 [facility] Comment on above: Performed By: #### C MP, CBC, MG #### [address] WBC (Bld) [#/Vol] 3.9 10*3/uL Normal 3.8-11.6 [facility] Comment on above: Performed By: #### C MP, CBC, MG #### [address] White Blood Count 3.9 [CFU]/mL Normal 3.8-11.6 [facility] Comment on above: Performed By: #### C MP, CBC, MG #### [address] Complete Blood Count Auto Di ffon 01-27-2025 Basophils (Bld) [#/Vol] 0.0 10*3/uL Normal 0.0-0.2 [facility] Comment on above: Result Comment: PERF ORMED BY: [place] [address] PATHOLOGIST LINK WIRE FABRIC MACHINE TENDER CUCO BLOUNT M.D. Performed By: #### C MP, CBC, MG #### [facility] [address] [place] [address] [place] Basophils/100 WBC (Bld) 0.5 % Normal . [facility] Comment on above: Performed By: #### C MP, CBC, MG #### [facility] [address] [place] [address] [place] Eosinophils (Bld) [#/Vol] 0.1 10*3/uL Normal 0.0-0.45 [facility] Comment on above: Performed By: #### C MP, CBC, MG #### [facility] [address] Eosinophils/100 WBC (Bld) 2.4 % Normal . [facility] Comment on above: Performed By: #### C MP, CBC, MG #### [address] Erythrocyte distribution width (RBC) [Ratio] 20.3 % High 11.9-15.3 [facility] Comment on above: Performed By: #### C MP, CBC, MG #### [address] Hematocrit (Bld) [Volume fraction] 29.3 % Low 34.0-46.4 [facility] Comment on above: Performed By: #### C MP, CBC, MG #### [address] Hemoglobin (Bld) [Mass/Vol] 9.7 g/dL Low 11.8-15.4 [facility] Comment on above: Performed By: #### C MP, CBC, MG #### [place] [address] [place] Lymphocytes (Bld) [#/Vol] 1.1 10*3/uL Normal 1.00-4.8 [facility] Comment on above: Performed By: #### C MP, CBC, MG #### [facility] [address] [place] [address] [place] Lymphocytes/100 WBC (Bld) 31.8 % Normal . [facility] Comment on above: Performed By: #### C MP, CBC, MG #### [address] MCH (RBC) [Entitic mass] 28.0 pg Normal 24.7-34.3 [facility] Comment on above: Performed By: #### C MP, CBC, MG #### [address] MCV (RBC) [Entitic vol] 84.8 fL Normal 80-100 [facility] Comment on above: Performed By: #### C MP, CBC, MG #### [address] Mean Corpuscular HGB Conc 33.0 g/dL Normal 32.0-35.0 [facility] Comment on above: Performed By: #### C MP, CBC, MG #### [address] Monocytes (Bld) [#/Vol] 0.6 10*3/uL Normal 0.0-0.8 [facility] Comment on above: Performed By: #### C MP, CBC, MG #### [address] Monocytes/100 WBC (Bld) 16.5 % Normal . [facility] Comment on above: Performed By: #### C MP, CBC, MG #### [address] Neutrophils (Bld) [#/Vol] 1.7 10*3/uL Low 1.8-7.7 [facility] Comment on above: Performed By: #### C MP, CBC, MG #### [address] Neutrophils/100 WBC (Bld) 48.8 % Normal . [facility] Comment on above: Performed By: #### C MP, CBC, MG #### [address] NRBC% 0.2 /100{WBC} Normal 0-0.5 [facility] Comment on above: Performed By: #### C MP, CBC, MG #### [address] Platelet mean volume (Bld) [Entitic vol] 8.4 fL Normal 6.3-10.7 [facility] Comment on above: Performed By: #### C MP, CBC, MG #### [address] Platelets (Bld) [#/Vol] 195 10*3/uL Abnormal 150-450 [facility] Comment on above: Performed By: #### C MP, CBC, MG #### [address] RBC (Bld) [#/Vol] 3.46 10*6/uL Low 3.60-5.00 [facility] Comment on above: Performed By: #### C MP, CBC, MG #### [address] WBC (Bld) [#/Vol] 3.5 10*3/uL Low 3.8-11.6 [facility] Comment on above: Performed By: #### C MP, CBC, MG #### [address] White Blood Count 3.5 [CFU]/mL Low 3.8-11.6 [facility] Comment on above: Performed By: #### C MP, CBC, MG #### [address] Comprehensive Metabolic Pane doris 01-27-2025 Albumin [Mass/Vol] 2.5 g/dL Low 3.5-5.7 [facility] Comment on above: Performed By: #### C MP, CBC, MG #### [address] Albumin/Globulin [Mass ratio] 0.9 {ratio} Normal [facility] Comment on above: Performed By: #### C MP, CBC, MG #### [address] ALP [Catalytic activity/Vol] 101 U/L Normal 34-104 [facility] Comment on above: Performed By: #### C MP, CBC, MG #### [facility] [address] ALT [Catalytic activity/Vol] 8 U/L Normal 7-52 [facility] Comment on above: Performed By: #### C MP, CBC, MG #### [facility] [address] Anion gap [Moles/Vol] 9.8 mmol/L Normal 6.0-15.0 [facility] Comment on above: Performed By: #### C MP, CBC, MG #### [address] AST [Catalytic activity/Vol] 31 U/L Normal 13-39 [facility] Comment on above: Performed By: #### C MP, CBC, MG #### [address] Bilirubin [Mass/Vol] 0.5 mg/dL Normal 0.3-1.0 [facility] Comment on above: Performed By: #### C MP, CBC, MG #### [address] Calcium [Mass/Vol] 7.7 mg/dL Low 8.6-10.3 [facility] Comment on above: Performed By: #### C MP, CBC, MG #### [place] [address] [place] Chloride [Moles/Vol] 103 mmol/L Normal 98-107 [facility] Comment on above: Performed By: #### C MP, CBC, MG #### [facility] [address] [place] [address] [place] CO2 [Moles/Vol] 29.8 mmol/L Normal 21.0-31.0 [facility] Comment on above: Performed By: #### C MP, CBC, MG #### [facility] [address] [place] [address] Creatinine [Mass/Vol] 0.39 mg/dL Low 0.60-1.20 [facility] Comment on above: Performed By: #### C MP, CBC, MG #### [address] Creatinine Clr Calc Pharmacy 174.89 Normal [facility] Comment on above: Performed By: #### C MP, CBC, MG #### [address] GFR/1.73 sq M.predicted MDRD (S/P/Bld) [Vol rate/Area] mL/min/{1.73_m2} Normal [facility] Comment on above: Performed By: #### C MP, CBC, MG #### [address] Globulin (S) [Mass/Vol] 2.8 g/dL Normal [facility] Comment on above: Performed By: #### C MP, CBC, MG #### [address] Glucose [Mass/Vol] 95 mg/dL Normal 70-100 [facility] Comment on above: Result Comment: [facility] Glucose Reference Range is dependent on time and content of last meal. Glucose of more than 200 mg/dL in a nonstressed, ambulatory subject supports the diagnosis of Diabetes Mellitus. ADA recommended reference range Performed By: #### C MP, CBC, MG #### [address] Potassium [Moles/Vol] 2.6 mmol/L Off scale low 3.5-5.1 [facility] Comment on above: Result Comment: Crit ical Result Called to and read back by: TIM ZAFAR at: 01/27/2025 06:12:18 by:[id number] Performed By: #### C MP, CBC, MG #### [address] Protein [Mass/Vol] 5.3 g/dL Low 6.4-8.9 [facility] Comment on above: Performed By: #### C MP, CBC, MG #### [address] Sodium [Moles/Vol] 140 mmol/L Normal 136-145 [facility] Comment on above: Performed By: #### C MP, CBC, MG #### [address] Urea nitrogen [Mass/Vol] 2 mg/dL Low 7-25 [facility] Comment on above: Performed By: #### C MP, CBC, MG #### [address] Magnesiumon 01-27-2025 Magnesium [Mass/Vol] 1.7 mg/dL Low 1.9-2.7 [facility] Comment on above: Result Comment: PERF ORMED BY: [place] [address] PATHOLOGIST [employer] CUCO BLOUNT M.D. Performed By: #### C MP, CBC, MG #### [address] Pathology Request for Lab Co rpon 01-27-2025 Pathology Request for Lab Elio Normal [facility] Comment on above: Order Comment: GI SP ECIMEN Result Comment: See report. Scanned copy available in EMR. PERFORMED BY: [place] [address] PATHOLOGIST [employer] T[employer]ER CUCO BLOUNT M.D. Performed By: #### C UU #### [address] Complete Blood Count Auto Di ffon 01-26-2025 Basophils (Bld) [#/Vol] 0.0 10*3/uL Normal 0.0-0.2 [facility] Comment on above: Result Comment: PERF ORMED BY: [place] [address] PATHOLOGIST [employer] T[employer] CUCO BLOUNT M.D. Performed By: #### C MP, CBC, MG #### [address] Basophils/100 WBC (Bld) 0.6 % Normal . [facility] Comment on above: Performed By: #### C MP, CBC, MG #### [address] Eosinophils (Bld) [#/Vol] 0.1 10*3/uL Normal 0.0-0.45 [facility] Comment on above: Performed By: #### C MP, CBC, MG #### [address] Eosinophils/100 WBC (Bld) 2.3 % Normal . [facility] Comment on above: Performed By: #### C MP, CBC, MG #### [address] Erythrocyte distribution width (RBC) [Ratio] 19.8 % High 11.9-15.3 [facility] Comment on above: Performed By: #### C MP, CBC, MG #### [address] Hematocrit (Bld) [Volume fraction] 29.7 % Low 34.0-46.4 [facility] Comment on above: Performed By: #### C MP, CBC, MG #### [address] Hemoglobin (Bld) [Mass/Vol] 9.8 g/dL Low 11.8-15.4 [facility] Comment on above: Performed By: #### C MP, CBC, MG #### [address] Lymphocytes (Bld) [#/Vol] 0.9 10*3/uL Low 1.00-4.8 [facility] Comment on above: Performed By: #### C MP, CBC, MG #### [address] Lymphocytes/100 WBC (Bld) 26.5 % Normal . [facility] Comment on above: Performed By: #### C MP, CBC, MG #### [address] MCH (RBC) [Entitic mass] 27.8 pg Normal 24.7-34.3 [facility] Comment on above: Performed By: #### C MP, CBC, MG #### [address] MCV (RBC) [Entitic vol] 83.8 fL Normal 80-100 [facility] Comment on above: Performed By: #### C MP, CBC, MG #### [address] Mean Corpuscular HGB Conc 33.1 g/dL Normal 32.0-35.0 [facility] Comment on above: Performed By: #### C MP, CBC, MG #### [address] Monocytes (Bld) [#/Vol] 0.5 10*3/uL Normal 0.0-0.8 [facility] Comment on above: Performed By: #### C MP, CBC, MG #### [address] Monocytes/100 WBC (Bld) 14.3 % Normal . [facility] Comment on above: Performed By: #### C MP, CBC, MG #### [address] Neutrophils (Bld) [#/Vol] 1.9 10*3/uL Normal 1.8-7.7 [facility] Comment on above: Performed By: #### C MP, CBC, MG #### [address] Neutrophils/100 WBC (Bld) 56.3 % Normal . [facility] Comment on above: Performed By: #### C MP, CBC, MG #### [address] NRBC% 0.3 /100{WBC} Normal 0-0.5 [facility] Comment on above: Performed By: #### C MP, CBC, MG #### [address] Platelet mean volume (Bld) [Entitic vol] 8.5 fL Normal 6.3-10.7 [facility] Comment on above: Performed By: #### C MP, CBC, MG #### [facility] [address] Platelets (Bld) [#/Vol] 136 10*3/uL Low 150-450 [facility] Comment on above: Performed By: #### C MP, CBC, MG #### [address] RBC (Bld) [#/Vol] 3.54 10*6/uL Low 3.60-5.00 [facility] Comment on above: Performed By: #### C MP, CBC, MG #### [address] WBC (Bld) [#/Vol] 3.4 10*3/uL Low 3.8-11.6 [facility] Comment on above: Performed By: #### C MP, CBC, MG #### [address] White Blood Count 3.4 [CFU]/mL Low 3.8-11.6 [facility] Comment on above: Performed By: #### C MP, CBC, MG #### [address] Comprehensive Metabolic Pane doris 01-26-2025 Albumin [Mass/Vol] 2.4 g/dL Low 3.5-5.7 [facility] Comment on above: Performed By: #### C MP, CBC, MG #### [address] Albumin/Globulin [Mass ratio] 0.9 {ratio} Normal [facility] Comment on above: Performed By: #### C MP, CBC, MG #### [address] ALP [Catalytic activity/Vol] 109 U/L High 34-104 [facility] Comment on above: Performed By: #### C MP, CBC, MG #### [facility] [address] ALT [Catalytic activity/Vol] 8 U/L Normal 7-52 [facility] Comment on above: Performed By: #### C MP, CBC, MG #### [facility] [address] Anion gap [Moles/Vol] 9.5 mmol/L Normal 6.0-15.0 [facility] Comment on above: Performed By: #### C MP, CBC, MG #### [facility] [address] [place] [address] AST [Catalytic activity/Vol] 36 U/L Normal 13-39 [facility] Comment on above: Performed By: #### C MP, CBC, MG #### [address] Bilirubin [Mass/Vol] 0.6 mg/dL Normal 0.3-1.0 [facility] Comment on above: Performed By: #### C MP, CBC, MG #### [address] Calcium [Mass/Vol] 7.9 mg/dL Low 8.6-10.3 [facility] Comment on above: Performed By: #### C MP, CBC, MG #### [place] [address] [place] Chloride [Moles/Vol] 103 mmol/L Normal 98-107 [facility] Comment on above: Performed By: #### C MP, CBC, MG #### [facility] [address] [place] [address] [place] CO2 [Moles/Vol] 27.7 mmol/L Normal 21.0-31.0 [facility] Comment on above: Performed By: #### C MP, CBC, MG #### [facility] [address] [place] [address] Creatinine [Mass/Vol] 0.36 mg/dL Low 0.60-1.20 [facility] Comment on above: Performed By: #### C MP, CBC, MG #### [address] Creatinine Clr Calc Pharmacy 190.23 Normal [facility] Comment on above: Performed By: #### C MP, CBC, MG #### [address] GFR/1.73 sq M.predicted MDRD (S/P/Bld) [Vol rate/Area] mL/min/{1.73_m2} Normal [facility] Comment on above: Performed By: #### C MP, CBC, MG #### [address] Globulin (S) [Mass/Vol] 2.8 g/dL Normal [facility] Comment on above: Performed By: #### C MP, CBC, MG #### [address] Glucose [Mass/Vol] 90 mg/dL Normal 70-100 [facility] Comment on above: Result Comment: [facility] Glucose Reference Range is dependent on time and content of last meal. Glucose of more than 200 mg/dL in a nonstressed, ambulatory subject supports the diagnosis of Diabetes Mellitus. ADA recommended reference range Performed By: #### C MP, CBC, MG #### [address] Potassium [Moles/Vol] 3.2 mmol/L Low 3.5-5.1 [facility] Comment on above: Performed By: #### C MP, CBC, MG #### [address] Protein [Mass/Vol] 5.2 g/dL Low 6.4-8.9 [facility] Comment on above: Performed By: #### C MP, CBC, MG #### [address] Sodium [Moles/Vol] 137 mmol/L Normal 136-145 [facility] Comment on above: Performed By: #### C MP, CBC, MG #### [address] Urea nitrogen [Mass/Vol] 5 mg/dL Low 7-25 [facility] Comment on above: Performed By: #### C MP, CBC, MG #### [address] ECG 12 lead ECGon 01-26-2025 ECG 12 lead ECG [facility] [address] Electrocardiograph Report Signed Patient: Candy Booth MR#: [id number] : 1970 Acct:[id number] Age/Sex: 54 / F ADM Date: 01/25/25 Loc: 4P Room: [address] [place] [address] Type: ADM IN Attending Dr: Saul Brandon [...] previous ECGs available Confirmed by Lester Arora ([id number]) on 01/27/2025 9:16:15 PM Referred By: Electronically Signed By: Lester Arora Transcribed By: MUS Signed By Lester Arora MD 01/27/252115 Normal [facility] ECH echo transthoracicon ECH echo transthoracic [facility] [place] [address] Echocardiogram Signed Patient: Candy Booth MR#: [id number] : 1970 Acct:[id number] Age/Sex: 54 / F ADM Date: 01/25/25 Loc: 4 Room: [address] [place] [address] Type: ADM IN Attending Dr: Camden Almodovar MD Ordering Provider: Tatyana Ohara MD Date of Service: 01/26/2508/17/1041 ECH/ECH echo transthoracic: LV thrombus- full study with [...] 1235 Signed By: Jaky Mar MD 01/26/25 0535 Normal [facility] Hemoglobin and Hematocriton 01-26-2025 Hematocrit (Bld) [Volume fraction] 31.0 % Low 34.0-46.4 [facility] Comment on above: Result Comment: PERF ORMED BY: [place] [address] PATHOLOGIST [employer] T[employer] CUCO BLOUNT M.D. Performed By: #### H H #### [address] Hemoglobin (Bld) [Mass/Vol] 10.1 g/dL Low 11.8-15.4 [facility] Comment on above: Performed By: #### H H #### [address] Hematocrit (Bld) [Volume fraction] 29.8 % Low 34.0-46.4 [facility] Comment on above: Result Comment: PERF ORMED BY: [place] [address] PATHOLOGIST [employer] T[employer] CUCO BLOUNT M.D. Performed By: #### U PE RAND #### [facility] , #### URTP #### [address] Hemoglobin (Bld) [Mass/Vol] 9.7 g/dL Low 11.8-15.4 [facility] Comment on above: Performed By: #### U PE RAND #### [facility] , #### URTP #### [address] Magnesiumon 01-26-2025 Magnesium [Mass/Vol] 1.8 mg/dL Low 1.9-2.7 [facility] Comment on above: Result Comment: PERF ORMED BY: [place] [address] PATHOLOGIST [employer] T[employer] CUCO BLOUNT M.D. Performed By: #### C MP, CBC, MG #### [address] abdomen pelvis wo conon 0 01-25-2025 CT abdomen pelvis wo con [facility] [place] [address] [place] [address] CT Scan Report Signed Patient: Candy Booth MR#: [id number] : 1970 Acct:[id number] Age/Sex: 54 / F ADM Date: 01/25/25 Loc: Room: [address] [place] [address] Type: ADM IN Attending Dr: Camden Almodovar [...] Within normal limits. Bladder: There is a Campoverde catheter in the bladder lumen. Bowel: There [...] Szymanski M.D. 01/25/2025 6:45 PM Dictation Location: [place] [address] Transcribed By: [facility] 01/25/251844 Dictated By: Lamonte Szymanski II, MD 01/25/25 182 Signed By: 01/25/251844 Normal [facility] Complete Blood Count Auto Di ffon 01-25-2025 Basophils (Bld) [#/Vol] 0.0 10*3/uL Normal 0.0-0.2 [facility] Comment on above: Result Comment: PERF ORMED BY: [facility] [address] [place] [address] PATHOLOGIST [employer] T[employer] CUCO BLOUNT M.D. Performed By: #### H H #### [place] [address] [place] Basophils/100 WBC (Bld) 0.7 % Normal . [facility] Comment on above: Performed By: #### H H #### [place] [address] [place] Eosinophils (Bld) [#/Vol] 0.1 10*3/uL Normal 0.0-0.45 [facility] Comment on above: Performed By: #### H H #### [place] [address] [place] Eosinophils/100 WBC (Bld) 2.4 % Normal . [facility] Comment on above: Performed By: #### H H #### [address] Erythrocyte distribution width (RBC) [Ratio] 19.8 % High 11.9-15.3 [facility] Comment on above: Performed By: #### H H #### [address] Hematocrit (Bld) [Volume fraction] 30.9 % Low 34.0-46.4 [facility] Comment on above: Performed By: #### H H #### [address] Hemoglobin (Bld) [Mass/Vol] 10.2 g/dL Low 11.8-15.4 [facility] Comment on above: Performed By: #### H H #### [place] [address] [place] Lymphocytes (Bld) [#/Vol] 1.3 10*3/uL Normal 1.00-4.8 [facility] Comment on above: Performed By: #### H H #### [place] [address] [place] Lymphocytes/100 WBC (Bld) 27.9 % Normal . [facility] Comment on above: Performed By: #### H H #### [address] MCH (RBC) [Entitic mass] 27.6 pg Normal 24.7-34.3 [facility] Comment on above: Performed By: #### H H #### [address] MCV (RBC) [Entitic vol] 83.5 fL Normal 80-100 [facility] Comment on above: Performed By: #### H H #### [address] Mean Corpuscular HGB Conc 33.1 g/dL Normal 32.0-35.0 [facility] Comment on above: Performed By: #### H H #### [address] Monocytes (Bld) [#/Vol] 0.6 10*3/uL Normal 0.0-0.8 [facility] Comment on above: Performed By: #### H H #### [address] Monocytes/100 WBC (Bld) 13.6 % Normal . [facility] Comment on above: Performed By: #### H H #### [address] Neutrophils (Bld) [#/Vol] 2.5 10*3/uL Normal 1.8-7.7 [facility] Comment on above: Performed By: #### H H #### [address] Neutrophils/100 WBC (Bld) 55.4 % Normal . [facility] Comment on above: Performed By: #### H H #### [address] NRBC% 0.1 /100{WBC} Normal 0-0.5 [facility] Comment on above: Performed By: #### H H #### [address] Platelet mean volume (Bld) [Entitic vol] 8.7 fL Normal 6.3-10.7 [facility] Comment on above: Performed By: #### H H #### [facility] [address] Platelets (Bld) [#/Vol] 136 10*3/uL Low 150-450 [facility] Comment on above: Performed By: #### H H #### [address] RBC (Bld) [#/Vol] 3.70 10*6/uL Normal 3.60-5.00 [facility] Comment on above: Performed By: #### H H #### [address] WBC (Bld) [#/Vol] 4.6 10*3/uL Normal 3.8-11.6 [facility] Comment on above: Performed By: #### H H #### [address] White Blood Count 4.6 [CFU]/mL Normal 3.8-11.6 [facility] Comment on above: Performed By: #### H H #### [address] Erythrocyte distribution wid th Auto (RBC) [Ratio]Ordered By: Jackson Mondragon on 01-25-2025 Erythrocyte distribution width (RBC) [Ratio] 18.6 % High 11.0-15.0 [facility] Globulin Calc (S) [Mass/Vol] Ordered By: Jackson Mondragon on 01-25-2025 Globulin (S) [Mass/Vol] 4.2 g/dL [facility] Glomerular filtration rate ( GFR) estimation in non- AmericanOrdered By: Jackson Mondragon on 01-25-2025 GFR/1.73 sq M.predicted among non-blacks MDRD (S/P/Bld) [Vol rate/Area] mL/min/{1.73_m2} >=60 mL/min/1.73m 2 [facility] Hematocrit Auto (Bld) [Volum e fraction]Ordered By: Jackson Mondragon on 01-25-2025 Hematocrit (Bld) [Volume fraction] 31.0 % Low 36.0-48.0 [facility] Hemoglobin [Mass/volume] in BloodOrdered By: Jackson Mondragon on 01-25-2025 Hemoglobin (Bld) [Mass/Vol] 10.3 g/dL Low 12.0-16.0 [facility] Lactic Acidon 01-25-2025 Lactate [Moles/Vol] 0.9 mmol/L Normal 0.5-1.9 [facility] Comment on above: Result Comment: Lact ic Acid reference range has been updated to 0.5 ? 1.9 mmol/L and the critical range of 2.0 or greater. PERFORMED BY: [place] [address] PATHOLOGIST [employer] T[employer] CUCO BLOUNT M.D. Performed By: #### H H #### [address] Leukocytes [#/volume] correc patty for nucleated erythrocytes in Blood by Automated counOrdered By: Jackson Mondragon on 01-25-2025 WBC corrected for nucl RBC Auto (Bld) [#/Vol] 5.4 10 3/uL 4.0-11.0 [facility] MCH Auto (RBC) [Entitic mass ]Ordered By: Jackson Mondragon on 01-25-2025 MCH (RBC) [Entitic mass] 28.3 pg 26.7-34.0 [facility] MCHC Auto (RBC) [Mass/Vol]Or dered By: Jackson Mondragon on 01-25-2025 MCHC (RBC) [Mass/Vol] 33.2 g/dL 29.9-35.2 [facility] MCV Auto (RBC) [Entitic vol] Ordered By: Jackson Mondragon on 01-25-2025 MCV (RBC) [Entitic vol] 85.2 fL 81.0-99.0 [facility] No Panel InformationOrdered By: Jackson Mondragon on 01-25-2025 1.7 mg/dL Low 1.8-2.4 [facility] 1.9 g/dL Low 3.4-5.0 [facility] 152 U/L High 46-116 [facility] 18 U/L 14-59 [facility] 62 U/L High 15-37 [facility] 8.2 [facility] 4.0 mg/dL Low 7.0-18.0 [facility] 8.3 mg/dL Low 8.5-10.1 [facility] 103 mmol/L 98-107 [facility] 26.3 mmol/L 21.0-32.0 [facility] 0.49 mg/dL Low 0.55-1.02 [facility] >60 >=60 mL/min/1.7 3m 2 [facility] 84 mg/dL 74-106 [facility] 3.0 mmol/L Low 3.5-5.1 [facility] 140 mmol/L 136-145 [facility] 0.9 mg/dL 0.2-1.0 [facility] 6.1 g/dL Low 6.4-8.2 [facility] 26.7 ng/mL Abnormal 30.0-100.0 [facility] Platelet mean volume Auto (B ld) [Entitic vol]Ordered By: Jackson Mondragon on 01-25-2025 Platelet mean volume (Bld) [Entitic vol] 11.0 fL 9.5-13.5 [facility] Platelets Auto (Bld) [#/Vol] Ordered By: Jackson Mondragon on 01-25-2025 Platelets (Bld) [#/Vol] 139 10 3/uL Low 150-450 [facility] RBC Auto (Bld) [#/Vol]Ordere d By: Jackson Mondragon on 01-25-2025 RBC (Bld) [#/Vol] 3.64 10 6/uL Low 4.20-5.40 [facility] Serum or plasma albumin/glob ulin mass ratioOrdered By: Jackson Mondragon on 01-25-2025 Albumin/Globulin [Mass ratio] 0.5 {ratio} [facility] Serum or plasma anion gap de terminationOrdered By: Jackson Mondragon on 01-25-2025 Anion gap [Moles/Vol] 13.7 mmol/L [facility] Erythrocyte distribution wid th Auto (RBC) [Ratio]Ordered By: Jackson Mondragon on 01-24-2025 Erythrocyte distribution width (RBC) [Ratio] 19.2 % High 11.0-15.0 [facility] Globulin Calc (S) [Mass/Vol] Ordered By: Jackson Mondragon on 01-24-2025 Globulin (S) [Mass/Vol] 3.5 g/dL [facility] Glomerular filtration rate ( GFR) estimation in non- AmericanOrdered By: Jackson Mondragon on 01-24-2025 GFR/1.73 sq M.predicted among non-blacks MDRD (S/P/Bld) [Vol rate/Area] mL/min/{1.73_m2} >=60 mL/min/1.73m 2 [facility] Hematocrit Auto (Bld) [Volum e fraction]Ordered By: Jackson Mondragon on 01-24-2025 Hematocrit (Bld) [Volume fraction] 28.3 % Low 36.0-48.0 [facility] Hemoglobin [Mass/volume] in BloodOrdered By: Jackson Mondragon on 01-24-2025 Hemoglobin (Bld) [Mass/Vol] 9.3 g/dL Low 12.0-16.0 [facility] Leukocytes [#/volume] correc patty for nucleated erythrocytes in Blood by Automated counOrdered By: Jackson Mondragon on 01-24-2025 WBC corrected for nucl RBC Auto (Bld) [#/Vol] 5.5 10 3/uL 4.0-11.0 [facility] MCH Auto (RBC) [Entitic mass ]Ordered By: Jackson Mondragon on 01-24-2025 MCH (RBC) [Entitic mass] 27.5 pg 26.7-34.0 [facility] MCHC Auto (RBC) [Mass/Vol]Or dered By: Jackson Mondragon on 01-24-2025 MCHC (RBC) [Mass/Vol] 31.0 g/dL 29.9-35.2 [facility] MCV Auto (RBC) [Entitic vol] Ordered By: Jackson Mondragon on 01-24-2025 MCV (RBC) [Entitic vol] 88.6 fL 81.0-99.0 [facility] No Panel InformationOrdered By: Jackson Mondragon on 01-24-2025 1.7 mg/dL Low 1.8-2.4 [facility] 1.7 g/dL Low 3.4-5.0 [facility] 120 U/L High 46-116 [facility] 10 U/L Low 14-59 [facility] 63 U/L High 15-37 [facility] 10.9 [facility] 5.0 mg/dL Low 7.0-18.0 [facility] 7.9 mg/dL Low 8.5-10.1 [facility] 105 mmol/L 98-107 [facility] 24.6 mmol/L 21.0-32.0 [facility] 0.46 mg/dL Low 0.55-1.02 [facility] >60 >=60 mL/min/1.7 3m 2 [facility] 80 mg/dL 74-106 [facility] 3.0 mmol/L Low 3.5-5.1 [facility] 139 mmol/L 136-145 [facility] 0.7 mg/dL 0.2-1.0 [facility] 5.2 g/dL Low 6.4-8.2 [facility] Platelet mean volume Auto (B ld) [Entitic vol]Ordered By: Jackson Mondragon on 01-24-2025 Platelet mean volume (Bld) [Entitic vol] 10.3 fL 9.5-13.5 [facility] Platelets Auto (Bld) [#/Vol] Ordered By: Jackson Mondraogn on 01-24-2025 Platelets (Bld) [#/Vol] 117 10 3/uL Low 150-450 [facility] RBC Auto (Bld) [#/Vol]Ordere d By: Jackson Mondragon on 01-24-2025 RBC (Bld) [#/Vol] 2.80 10 6/uL Low 4.20-5.40 [facility] Serum or plasma albumin/glob ulin mass ratioOrdered By: Jackson Mondragon on 01-24-2025 Albumin/Globulin [Mass ratio] 0.5 {ratio} [facility] Serum or plasma anion gap de terminationOrdered By: Jackson Mondragon on 01-24-2025 Anion gap [Moles/Vol] 12.4 mmol/L [facility] Erythrocyte distribution wid th Auto (RBC) [Ratio]Ordered By: Jackson Mondragon on 01-23-2025 Erythrocyte distribution width (RBC) [Ratio] 19.0 % High 11.0-15.0 [facility] Globulin Calc (S) [Mass/Vol] Ordered By: Jackson Mondragon on 01-23-2025 Globulin (S) [Mass/Vol] 3.5 g/dL [facility] Glomerular filtration rate ( GFR) estimation in non- AmericanOrdered By: Jackson Mondragon on 01-23-2025 GFR/1.73 sq M.predicted among non-blacks MDRD (S/P/Bld) [Vol rate/Area] mL/min/{1.73_m2} >=60 mL/min/1.73m 2 [facility] Hematocrit Auto (Bld) [Volum e fraction]Ordered By: Jackson Mondragon on 01-23-2025 Hematocrit (Bld) [Volume fraction] 25.9 % Low 36.0-48.0 [facility] Hemoglobin [Mass/volume] in BloodOrdered By: Jackson Mondragon 01-23-2025 Hemoglobin (Bld) [Mass/Vol] 8.2 g/dL Low 12.0-16.0 [facility] Hemoglobin.gastrointestinal [Presence] in StoolOrdered By: Jackson Mondragon on 01-23-2025 Hemoglobin.gastroint estinal Ql (Stl) Positive Abnormal [facility] Iron binding capacity [Mass/ volume] in Serum or PlasmaOrdered By: Jackson Mondragon 01-23-2025 Iron binding capacity [Mass/Vol] 126.0 ug/dL Low 250.0-450.0 [facility] Iron saturation [Mass Fracti on] in Serum or PlasmaOrdered By: Jackson Mondragon on 01-23-2025 Iron saturation [Mass fraction] 6.3 % [facility] Leukocytes [#/volume] correc patty for nucleated erythrocytes in Blood by Automated counOrdered By: Jackson Mondragon on 01-23-2025 WBC corrected for nucl RBC Auto (Bld) [#/Vol] 8.6 10 3/uL 4.0-11.0 [facility] MCH Auto (RBC) [Entitic mass ]Ordered By: Jackson Mondragon on 01-23-2025 MCH (RBC) [Entitic mass] 27.8 pg 26.7-34.0 [facility] MCHC Auto (RBC) [Mass/Vol]Or dered By: Jackson Mondragon on 01-23-2025 MCHC (RBC) [Mass/Vol] 31.1 g/dL 29.9-35.2 [facility] MCV Auto (RBC) [Entitic vol] Ordered By: Jackson Mondragon on 01-23-2025 MCV (RBC) [Entitic vol] 89.2 fL 81.0-99.0 [facility] No Panel InformationOrdered By: Jackson Mondragon on 01-23-2025 754 pg/mL 232-1245 [facility] 3.20 ng/mL Low 8.60-58.90 [facility] 95.0 ng/mL 8.0-252.0 [facility] 8.0 ug/dL Low 50.0-170.0 [facility] 1.9 mg/dL 1.8-2.4 [facility] 2.6 mg/dL 2.6-4.7 [facility] 2.2 g/dL Low 3.4-5.0 [facility] 126 U/L High 46-116 [facility] 17 U/L 14-59 [facility] 98 U/L High 15-37 [facility] 7.7 [facility] 5.0 mg/dL Low 7.0-18.0 [facility] 8.1 mg/dL Low 8.5-10.1 [facility] 108 mmol/L High 98-107 [facility] 22.9 mmol/L 21.0-32.0 [facility] 0.65 mg/dL 0.55-1.02 [facility] >60 >=60 mL/min/1.7 3m 2 [facility] 110 mg/dL High 74-106 [facility] 3.0 mmol/L Low 3.5-5.1 [facility] 142 mmol/L 136-145 [facility] 1.3 mg/dL High 0.2-1.0 [facility] 5.7 g/dL Low 6.4-8.2 [facility] Platelet mean volume Auto (B ld) [Entitic vol]Ordered By: Jackson Mondragon on 01-23-2025 Platelet mean volume (Bld) [Entitic vol] 10.6 fL 9.5-13.5 [facility] Platelets Auto (Bld) [#/Vol] Ordered By: Jackson Mondragon on 01-23-2025 Platelets (Bld) [#/Vol] 126 10 3/uL Low 150-450 [facility] RBC Auto (Bld) [#/Vol]Ordere d By: Jackson Mondragon on 01-23-2025 RBC (Bld) [#/Vol] 2.88 10 6/uL Low 4.20-5.40 [facility] Serum or plasma albumin/glob ulin mass ratioOrdered By: Jackson Mondragon on 01-23-2025 Albumin/Globulin [Mass ratio] 0.6 {ratio} [facility] Serum or plasma anion gap de terminationOrdered By: Jackson Mondragon on 01-23-2025 Anion gap [Moles/Vol] 14.1 mmol/L [facility] Basophils Auto (Bld) [#/Vol] Ordered By: Maureen Gilmore on 01-22-2025 Basophils (Bld) [#/Vol] 0.0 10 3/uL 0.0-0.1 [facility] Basophils/100 WBC Auto (Bld) Ordered By: Maureen Gilmore on 01-22-2025 Basophils/100 WBC (Bld) 0.2 % 0.2-2.0 [facility] Buprenorphine [Presence] in UrineOrdered By: Jackson Mondragon on 01-22-2025 Buprenorphine Ql (U) Negative NEGATIVE [facility] Eosinophils/100 WBC Auto (Bl d)Ordered By: Maureen Gilmore on 01-22-2025 Eosinophils/100 WBC (Bld) 0.1 % Low 0.9-7.0 [facility] Erythrocyte distribution wid th Auto (RBC) [Ratio]Ordered By: Maureen Gilmore on 01-22-2025 Erythrocyte distribution width (RBC) [Ratio] 19.4 % High 11.0-15.0 [facility] Globulin Calc (S) [Mass/Vol] Ordered By: Isha Holley on 01-22-2025 Globulin (S) [Mass/Vol] 5.2 g/dL [facility] Glomerular filtration rate ( GFR) estimation in non- AmericanOrdered By: Isha Holley on 01-22-2025 GFR/1.73 sq M.predicted among non-blacks MDRD (S/P/Bld) [Vol rate/Area] mL/min/{1.73_m2} >=60 mL/min/1.73m 2 [facility] Hematocrit Auto (Bld) [Volum e fraction]Ordered By: Maureen Gilmore on 01-22-2025 Hematocrit (Bld) [Volume fraction] 36.3 % 36.0-48.0 [facility] Hemoglobin [Mass/volume] in BloodOrdered By: Maureen Gilmore on 01-22-2025 Hemoglobin (Bld) [Mass/Vol] 11.4 g/dL Low 12.0-16.0 [facility] INR in Platelet poor plasma by Coagulation assayOrdered By: Isha Holley on 01-22-2025 INR Coag (PPP) [Relative time] 1.05 {INR} [facility] Leukocytes [#/volume] correc patty for nucleated erythrocytes in Blood by Automated counOrdered By: Maureen Gilmore on 01-22-2025 WBC corrected for nucl RBC Auto (Bld) [#/Vol] 10.7 10 3/uL 4.0-11.0 [facility] Lymphocytes Auto (Bld) [#/Vo l]Ordered By: Maureen Gilmore on 01-22-2025 Lymphocytes (Bld) [#/Vol] 0.9 10 3/uL Low 1.2-3.8 [facility] Lymphocytes/100 WBC Auto (Bl d)Ordered By: Maureen Gilmore on 08-30-2025 Lymphocytes/100 WBC (Bld) 8.1 % Low 20.5-60.0 [facility] MCH Auto (RBC) [Entitic mass ]Ordered By: Maureen Gilmore on 01-22-2025 MCH (RBC) [Entitic mass] 27.7 pg 26.7-34.0 [facility] MCHC Auto (RBC) [Mass/Vol]Or dered By: Maureen Gilmore on 01-22-2025 MCHC (RBC) [Mass/Vol] 31.4 g/dL 29.9-35.2 [facility] MCV Auto (RBC) [Entitic vol] Ordered By: Maureen Gilmore on 01-22-2025 MCV (RBC) [Entitic vol] 88.1 fL 81.0-99.0 [facility] Methadone [Presence] in Urin e by Screen methodOrdered By: Jackson Mondragon on 01-22-2025 Methadone Screen Ql (U) Negative NEGATIVE [facility] Monocytes Auto (Bld) [#/Vol] Ordered By: Maureen Gilmore on 01-22-2025 Monocytes (Bld) [#/Vol] 0.6 10 3/uL 0.3-0.8 [facility] Monocytes/100 WBC Auto (Bld) Ordered By: Maureen Gilmore on 01-22-2025 Monocytes/100 WBC (Bld) 5.1 % 1.7-12.0 [facility] Neutrophils Auto (Bld) [#/Vo l]Ordered By: Maureen Gilmore on 01-22-2025 Neutrophils (Bld) [#/Vol] 9.2 10 3/uL High 1.4-6.5 [facility] Neutrophils/100 WBC Auto (Bl d)Ordered By: Maureen Gilmore on 01-22-2025 Neutrophils/100 WBC (Bld) 85.8 % High 43.0-75.0 [facility] No Panel InformationOrdered By: Jackson Mondragon on 01-22-2025 Negative NEGATIVE [facility] Positive Abnormal NEGATIVE [facility] No Panel InformationOrdered By: Isha Holley on 01-22-2025 28.4 pg/mL 4.0-51.3 [facility] 1.7 mg/dL High 0.2-1.0 [facility] 1.9 mmol/L 0.4-2.0 [facility] 1.8 g/dL Low 3.4-5.0 [facility] 202 U/L High 46-116 [facility] 20 U/L 14-59 [facility] 99 U/L High 15-37 [facility] 3.6 [facility] 3.0 mg/dL Low 7.0-18.0 [facility] 8.4 mg/dL Low 8.5-10.1 [facility] 102 mmol/L 98-107 [facility] 25.3 mmol/L 21.0-32.0 [facility] 0.83 mg/dL 0.55-1.02 [facility] >60 >=60 mL/min/1.7 3m 2 [facility] 102 mg/dL 74-106 [facility] 3.5 mmol/L 3.5-5.1 [facility] 137 mmol/L 136-145 [facility] 7.0 g/dL 6.4-8.2 [facility] Positive POSITIVE [facility] 0 mmol/L <2.0-2.0 [facility] 23.5 mmol/L 22.0-26.0 [facility] 3 [facility] NC [facility] 94.8 % [facility] 32.0 mm[Hg] Low 35.0-45.0 [facility] 7.475 High 7.350-7.450 [facility] 68.9 mm[Hg] Low 80.0-100.0 [facility] R RADIAL [facility] YES-[facility] YES [facility] NONE SEEN #/LPF NONE SEEN [facility] SMALL Abnormal NEGATIVE [facility] None Seen #/HPF None Seen [facility] MODERATE Abnormal NEGATIVE [facility] LARGE #/HPF Abnormal NONE SEEN [facility] CLOUDY Abnormal CLEAR [facility] NONE SEEN NONE SEEN [facility] ORANGE Abnormal YELLOW [facility] 2-5 #/HPF Abnormal 0-2 [facility] Negative NEGATIVE [facility] RARE #/LPF NONE/RARE [facility] >100 #/HPF Abnormal NONE SEEN [facility] Positive Abnormal NEGATIVE [facility] 6.0 5.0-9.0 [facility] 100 mg/dL Abnormal NEG/TRACE [facility] 1.020 1.005-1.025 [facility] 4.0 EU/dL Abnormal 0.2-1.0 [facility] No Panel InformationOrdered By: Maureen Gilmore on 01-22-2025 0.0 10 3/uL 0.0-0.7 [facility] 0.07 10 3/uL High 0.00-0.03 [facility] 0.7 % High 0.0-0.5 [facility] Platelet mean volume Auto (B ld) [Entitic vol]Ordered By: Maureen Gilmore on 01-22-2025 Platelet mean volume (Bld) [Entitic vol] 10.3 fL 9.5-13.5 [facility] Platelets Auto (Bld) [#/Vol] Ordered By: Maureen Gilmore on 01-22-2025 Platelets (Bld) [#/Vol] 177 10 3/uL 150-450 [facility] Prothrombin time (PT)Ordered By: Isha Holley on 01-22-2025 PT Coag (PPP) [Time] 11.1 s 9.0-11.6 [facility] RBC Auto (Bld) [#/Vol]Ordere d By: Maureen Gilmore on 01-22-2025 RBC (Bld) [#/Vol] 4.12 10 6/uL Low 4.20-5.40 [facility] Serum or plasma albumin/glob ulin mass ratioOrdered By: Isha Holley on 01-22-2025 Albumin/Globulin [Mass ratio] 0.3 {ratio} [facility] Serum or plasma anion gap de terminationOrdered By: Isha Holley on 01-22-2025 Anion gap [Moles/Vol] 13.2 mmol/L [facility] Urine Cultureon 01-22-2025 Bacteria identified Cx Nom (U) ORGANISM: Escherichia coli (O:ESCCOL) [place] Count >100,000 ORGANISM: Escherichia coli (O:ESCCOL) [place] Count >100,000 Aerobic LUBNA Charge (NMIC56) ----- [...] RESISTANT TO ALL B-LACTAM DRUGS. PERFORMED BY: [facility] [address] [place] [address] PATHOLOGIST [employer] CUCO BLOUNT M.D. Normal [facility] Comment on above: Performed By: #### C UU #### [facility] [address] Urine tricyclic antidepressa nt measurementOrdered By: Jackson Mondragon on 01-22-2025 Tricyclic antidepressants (U) [Mass/Vol] Positive Abnormal NEGATIVE [facility] oxyCODONE+oxyMORphone [Prese nce] in Urine by Screen methodOrdered By: Jackson Mondragon on 01-22-2025 oxyCODONE+oxyMORphon e Screen Ql (U) Negative NEGATIVE [facility] BASIC METABOLIC PANELon 12-25 Anion gap [Moles/Vol] 9 mmol/L Normal 5-15 [facility] Comment on above: Performed By: #### B MP #### [facility] ([facility]) [address] [place] [id number] VIR Calcium [Mass/Vol] 8.5 mg/dL Normal 8.5-10.5 [place] Comment on above: Performed By: #### B MP #### [facility] ([facility]) [address] [place] [phone] VIR Chloride [Moles/Vol] 105 mmol/L Normal 98-109 [facility] Comment on above: Performed By: #### B MP #### [facility] ([facility]) [address] [place] [address] VIR CO2 [Moles/Vol] 25 mmol/L Normal 22-32 [facility] Comment on above: Performed By: #### B MP #### [facility] ([address] [place] [address] VIR Creatinine [Mass/Vol] 0.66 mg/dL Normal 0.40-1.00 [facility] Comment on above: Result Comment: METH OD TRACEABLE TO IDMS STANDARD Performed By: #### B MP #### [facility] ([address] [place] [address] VIR EGFR (CKD-EPI) NON-RACE DEPENDENT >^90 Normal >=60 [facility] Comment on above: Result Comment: eGFR not reported due to non-numeric value for Creatinine. EGFR not calculated due to patient's gender not being defined. Reported eGFR is based on the CKD-EPI 2020 equation that does not use a race coefficient. Performed By: #### B MP #### [facility] ([address] [place] [address] VIR Glucose [Mass/Vol] 123 mg/dL High 65-99 [place] Comment on above: Performed By: #### B MP #### [facility] ([address] [place] [address] VIR Potassium [Moles/Vol] 3.6 mmol/L Normal 3.5-5.0 [facility] Comment on above: Performed By: #### B MP #### [facility] ([address] [place] [address] VIR Sodium [Moles/Vol] 139 mmol/L Normal 134-146 [place] Comment on above: Performed By: #### B MP #### [facility] ([address] [place] [address] VIR Urea nitrogen [Mass/Vol] mg/dL Low 5-23 [facility] Comment on above: Performed By: #### B MP #### [facility] ([address] [place] [address] VIR CBC WITH AUTO DIFFERENTIALon 01-20-2025 BASOPHILS ABSOLUTE COUNT (10*3/UL) BY AUTOMATED COUNT 0.0 10*3/uL Normal 0.0-0.2 [facility] Comment on above: Performed By: #### C BCA #### [facility] ([facility]) [address] [place] [address] VIR BASOPHILS RELATIVE PERCENT BY AUTOMATED COUNT 0.5 % Normal [facility] Comment on above: Performed By: #### C BCA #### [facility] ([address] [address] VIR CELLAVISION DIFFERENTIAL TYPE AUTOMATED DIFFERENTIAL Normal [facility] Comment on above: Performed By: #### C BCA #### [facility] ([address] [address] VIR Eosinophils (Bld) [#/Vol] 0.1 10*3/uL Normal 0.0-0.4 [facility] Comment on above: Performed By: #### C BCA #### [facility] ([address] [place] [address] VIR EOSINOPHILS RELATIVE PERCENT BY AUTOMATED COUNT 1.4 % Normal [facility] Comment on above: Performed By: #### C BCA #### [facility] ([address] [place] [address] VIR Erythrocyte distribution width (RBC) [Ratio] 20.7 % High 11.5-15 [facility] Comment on above: Performed By: #### C BCA #### [facility] ([address] [address] VIR Hematocrit (Bld) [Volume fraction] 32.9 % Low 35-47 [facility] Comment on above: Performed By: #### C BCA #### [facility] ([address] [place] [address] VIR Hemoglobin (Bld) [Mass/Vol] 10.5 g/dL Low 11.7-15.5 [facility] Comment on above: Performed By: #### C BCA #### [facility] ([address] [address] VIR LYMPHOCYTES ABSOLUTE COUNT (10*3/UL) BY AUTOMATED COUNT 1.3 10*3/uL Normal 1.0-3.5 [facility] Comment on above: Performed By: #### C BCA #### [facility] ([address] [address] VIR LYMPHOCYTES RELATIVE PERCENT BY AUTOMATED COUNT 27.1 % Normal [facility] Comment on above: Performed By: #### C BCA #### [facility] ([address] [address] VIR MCH (RBC) [Entitic mass] 27.3 pg Normal 27-34 [facility] Comment on above: Performed By: #### C BCA #### [facility] ([address] [address] VIR MCHC (RBC) [Mass/Vol] 31.8 g/dL Low 32-36 [facility] Comment on above: Performed By: #### C BCA #### [facility] ([address] [address] VIR MCV (RBC) [Entitic vol] 86 fL Normal 80-100 [facility] Comment on above: Performed By: #### C BCA #### [facility] ([address] [address] VIR MONOCYTES ABSOLUTE COUNT (10*3/UL) BY AUTOMATED COUNT 0.3 10*3/uL Normal 0.0-0.9 [facility] Comment on above: Performed By: #### C BCA #### [facility] ([address] [address] VIR MONOCYTES RELATIVE PERCENT BY AUTOMATED COUNT 7.4 % Normal [facility] Comment on above: Performed By: #### C BCA #### [facility] ([address] [place] [address] VIR NEUTROPHILS ABSOLUTE COUNT BY AUTOMATED COUNT 3.0 10*3/uL Normal 1.5-6.6 [facility] Comment on above: Performed By: #### C BCA #### [facility] ([address] [place] [address] VIR NEUTROPHILS RELATIVE PERCENT BY AUTOMATED COUNT 63.6 % Normal [facility] Comment on above: Performed By: #### C BCA #### [facility] ([address] [address] VIR Platelet mean volume (Bld) [Entitic vol] 7.8 fL Normal 7-12 [facility] Comment on above: Performed By: #### C BCA #### [facility] ([address] [address] VIR Platelets (Bld) [#/Vol] 283 10*3/uL Normal 150-450 [facility] Comment on above: Performed By: #### C BCA #### [facility] ([address] [address] VIR RBC COUNT 3.83 [id number]/L Normal 3.8-5.2 [facility] Comment on above: Performed By: #### C BCA #### [facility] ([address] [place] [address] VIR WBC (Bld) [#/Vol] 4.7 10*3/uL Normal 4-11 [place] Comment on above: Performed By: #### C BCA #### [facility] ([address] [address] VIR BASIC METABOLIC PANELon 08- Anion gap [Moles/Vol] 9 mmol/L Normal 5-15 [facility] Comment on above: Performed By: #### B MP #### [facility] ([address] [place] [address] VIR Calcium [Mass/Vol] 8.1 mg/dL Low 8.5-10.5 [place] Comment on above: Performed By: #### B MP #### [facility] ([address] [place] [address] VIR Chloride [Moles/Vol] 101 mmol/L Normal 98-109 [facility] Comment on above: Performed By: #### B MP #### [facility] ([address] [place] [address] VIR CO2 [Moles/Vol] 27 mmol/L Normal 22-32 [facility] Comment on above: Performed By: #### B MP #### [facility] ([address] [address] VIR Creatinine [Mass/Vol] 0.38 mg/dL Low 0.40-1.00 [facility] Comment on above: Result Comment: METH OD TRACEABLE TO IDMS STANDARD Performed By: #### B MP #### [facility] ([address] [address] VIR EGFR (CKD-EPI) NON-RACE DEPENDENT >^90 Normal >=60 [facility] Comment on above: Result Comment: eGFR not reported due to non-numeric value for Creatinine. Reported eGFR is based on the CKD-EPI 2021 equation that does not use a race coefficient. Performed By: #### B MP #### [facility] ([address] [place] [address] VIR Glucose [Mass/Vol] 99 mg/dL Normal 65-99 [place] Comment on above: Performed By: #### B MP #### [facility] ([address] [address] VIR Potassium [Moles/Vol] 3.0 mmol/L Low 3.5-5.0 [facility] Comment on above: Performed By: #### B MP #### [facility] ([address] [place] [address] VIR Sodium [Moles/Vol] 137 mmol/L Normal 134-146 [place] Comment on above: Performed By: #### B MP #### [facility] ([address] [place] [address] VIR Urea nitrogen [Mass/Vol] mg/dL Low 5-23 [facility] Comment on above: Performed By: #### B MP #### [facility] ([address] [place] [address] VIR CBC WITH AUTO DIFFERENTIALon 01-07-2025 BASOPHILS ABSOLUTE COUNT (10*3/UL) BY AUTOMATED COUNT 0.0 10*3/uL Normal 0.0-0.2 [facility] Comment on above: Performed By: #### C BCA #### [facility] ([address] [place] [address] VIR BASOPHILS RELATIVE PERCENT BY AUTOMATED COUNT 0.4 % Normal [facility] Comment on above: Performed By: #### C BCA #### [facility] ([address] [place] [address] VIR CELLAVISION DIFFERENTIAL TYPE AUTOMATED DIFFERENTIAL Normal [facility] Comment on above: Performed By: #### C BCA #### [facility] ([address] [place] [address] VIR Eosinophils (Bld) [#/Vol] 0.1 10*3/uL Normal 0.0-0.4 [facility] Comment on above: Performed By: #### C BCA #### [facility] ([address] [place] [address] VIR EOSINOPHILS RELATIVE PERCENT BY AUTOMATED COUNT 2.8 % Normal [facility] Comment on above: Performed By: #### C BCA #### [facility] ([address] [address] VIR Erythrocyte distribution width (RBC) [Ratio] 18.4 % High 11.5-15 [facility] Comment on above: Performed By: #### C BCA #### [facility] ([address] [address] VIR Hematocrit (Bld) [Volume fraction] 25.1 % Low 35-47 [facility] Comment on above: Performed By: #### C BCA #### [facility] ([address] [address] VIR Hemoglobin (Bld) [Mass/Vol] 8.2 g/dL Low 11.7-15.5 [facility] Comment on above: Performed By: #### C BCA #### [facility] ([address] [address] VIR LYMPHOCYTES ABSOLUTE COUNT (10*3/UL) BY AUTOMATED COUNT 1.2 10*3/uL Normal 1.0-3.5 [facility] Comment on above: Performed By: #### C BCA #### [facility] ([address] [address] VIR LYMPHOCYTES RELATIVE PERCENT BY AUTOMATED COUNT 39.0 % Normal [facility] Comment on above: Performed By: #### C BCA #### [facility] ([address] [address] VIR MCH (RBC) [Entitic mass] 28.8 pg Normal 27-34 [facility] Comment on above: Performed By: #### C BCA #### [facility] ([address] [address] VIR MCHC (RBC) [Mass/Vol] 32.5 g/dL Normal 32-36 [facility] Comment on above: Performed By: #### C BCA #### [facility] ([address] [address] VIR MCV (RBC) [Entitic vol] 89 fL Normal 80-100 [facility] Comment on above: Performed By: #### C BCA #### [facility] ([address] [address] VIR MONOCYTES ABSOLUTE COUNT (10*3/UL) BY AUTOMATED COUNT 0.3 10*3/uL Normal 0.0-0.9 [facility] Comment on above: Performed By: #### C BCA #### [facility] ([address] [address] VIR MONOCYTES RELATIVE PERCENT BY AUTOMATED COUNT 8.2 % Normal [facility] Comment on above: Performed By: #### C BCA #### [facility] ([address] [address] VIR NEUTROPHILS ABSOLUTE COUNT BY AUTOMATED COUNT 1.5 10*3/uL Normal 1.5-6.6 [facility] Comment on above: Performed By: #### C BCA #### [facility] ([address] [address] VIR NEUTROPHILS RELATIVE PERCENT BY AUTOMATED COUNT 49.6 % Normal [facility] Comment on above: Performed By: #### C BCA #### [facility] ([address] [address] VIR Platelet mean volume (Bld) [Entitic vol] 7.9 fL Normal 7-12 [facility] Comment on above: Performed By: #### C BCA #### [facility] ([address] [address] VIR Platelets (Bld) [#/Vol] 174 10*3/uL Normal 150-450 [facility] Comment on above: Performed By: #### C BCA #### [facility] ([facility]) [address] [place] [address] [place] [address] VIR RBC COUNT 2.83 [id number] Low 3.8-5.2 [facility] Comment on above: Performed By: #### C BCA #### [facility] ([address] [place] [address] VIR WBC (Bld) [#/Vol] 3.1 10*3/uL Low 4-11 [place] Comment on above: Performed By: #### C BCA #### [facility] ([address] [place] [address] VIR Glomerular filtration rate ( GFR) estimation in non- AmericanOrdered By: Jackson Mondragon on 12-05-2024 GFR/1.73 sq M.predicted among non-blacks MDRD (S/P/Bld) [Vol rate/Area] mL/min/{1.73_m2} >=60 mL/min/1.73m 2 [facility] - Chemistry and C hemistry - challengeOrdered By: Jackson Mondragon on 12-05-2024 Calcium [Mass/Vol] 8.1 mg/dL Low 8.5-10.1 [facility] Chloride [Moles/Vol] 103 mmol/L 98-107 [facility] CO2 [Moles/Vol] 22.3 mmol/L 21.0-32.0 [facility] Creatinine [Mass/Vol] 0.70 mg/dL 0.55-1.02 [facility] GFR/1.73 sq M.predicted MDRD (S/P/Bld) [Vol rate/Area] mL/min/{1.73_m2} >=60 mL/min/1.73m 2 [facility] Glucose [Mass/Vol] 84 mg/dL 74-106 [facility] Potassium [Moles/Vol] 3.5 mmol/L 3.5-5.1 [facility] Sodium [Moles/Vol] 134 mmol/L Low 136-145 [facility] Urea nitrogen [Mass/Vol] 32.0 mg/dL High 7.0-18.0 [facility] Urea nitrogen/Creatinine [Mass ratio] 45.7 mg/mg [facility] No Panel InformationOrdered By: Jackson Mondragon on 12-05-2024 45.7 [facility] 32.0 mg/dL High 7.0-18.0 [facility] 8.1 mg/dL Low 8.5-10.1 [facility] 103 mmol/L 98-107 [facility] 22.3 mmol/L 21.0-32.0 [facility] 0.70 mg/dL 0.55-1.02 [facility] >60 >=60 mL/min/1.7 3m 2 [facility] 84 mg/dL 74-106 [facility] 3.5 mmol/L 3.5-5.1 [facility] 134 mmol/L Low 136-145 [facility] Serum or plasma anion gap de terminationOrdered By: Jackson Mondragon on 12-05-2024 Anion gap [Moles/Vol] 12.2 mmol/L [facility] Glomerular filtration rate ( GFR) estimation in non- AmericanOrdered By: Jackson Mondragon on 12-04-2024 GFR/1.73 sq M.predicted among non-blacks MDRD (S/P/Bld) [Vol rate/Area] 42 mL/min/{1.73_m2} Low >=60 mL/min/1.73m 2 [facility] - Chemistry and C hemistry - challengeOrdered By: Jackson Mondragon on 12-04-2024 Calcium [Mass/Vol] 8.5 mg/dL 8.5-10.1 [facility] Chloride [Moles/Vol] 99 mmol/L 98-107 [facility] CO2 [Moles/Vol] 20.4 mmol/L Low 21.0-32.0 [facility] Creatinine [Mass/Vol] 1.32 mg/dL High 0.55-1.02 [facility] GFR/1.73 sq M.predicted MDRD (S/P/Bld) [Vol rate/Area] 50 mL/min/{1.73_m2} Low >=60 mL/min/1.73m 2 [facility] Glucose [Mass/Vol] 105 mg/dL 74-106 [facility] Potassium [Moles/Vol] 3.9 mmol/L 3.5-5.1 [facility] Sodium [Moles/Vol] 131 mmol/L Low 136-145 [facility] Urea nitrogen [Mass/Vol] 35.0 mg/dL High 7.0-18.0 [facility] Urea nitrogen/Creatinine [Mass ratio] 26.5 mg/mg [facility] No Panel InformationOrdered By: Jackson Mondragon on 12-04-2024 26.5 [facility] 35.0 mg/dL High 7.0-18.0 [facility] 8.5 mg/dL 8.5-10.1 [facility] 99 mmol/L 98-107 [facility] 20.4 mmol/L Low 21.0-32.0 [facility] 1.32 mg/dL High 0.55-1.02 [facility] 50 Low >=60 mL/min/1.7 3m 2 [facility] 105 mg/dL 74-106 [facility] 3.9 mmol/L 3.5-5.1 [facility] 131 mmol/L Low 136-145 [facility] Serum or plasma anion gap de terminationOrdered By: Jackson Mondragon on 12-04-2024 Anion gap [Moles/Vol] 15.5 mmol/L [facility] Globulin Calc (S) [Mass/Vol] Ordered By: Jackson Mondragon on 12-03-2024 Globulin (S) [Mass/Vol] 4.6 g/dL [facility] Glomerular filtration rate ( GFR) estimation in non- AmericanOrdered By: Jackson Mondragon on 12-03-2024 GFR/1.73 sq M.predicted among non-blacks MDRD (S/P/Bld) [Vol rate/Area] mL/min/{1.73_m2} >=60 mL/min/1.73m 2 [facility] - Chemistry and C hemistry - challengeOrdered By: Jackson Mondragon on 12-03-2024 Albumin [Mass/Vol] 1.5 g/dL Low 3.4-5.0 [facility] ALP [Catalytic activity/Vol] 260 U/L High 46-116 [facility] ALT [Catalytic activity/Vol] 39 U/L 14- [facility] AST [Catalytic activity/Vol] 125 U/L High 15- [facility] Bilirubin [Mass/Vol] 0.8 mg/dL 0.2-1.0 [facility] Calcium [Mass/Vol] 9.0 mg/dL 8.5-10.1 [facility] Chloride [Moles/Vol] 97 mmol/L Low 98-107 [facility] CO2 [Moles/Vol] 18.2 mmol/L Low 21.0-32.0 [facility] Creatinine [Mass/Vol] 0.94 mg/dL 0.55-1.02 [facility] GFR/1.73 sq M.predicted MDRD (S/P/Bld) [Vol rate/Area] mL/min/{1.73_m2} >=60 mL/min/1.73m 2 [facility] Glucose [Mass/Vol] 118 mg/dL High 74-106 [facility] Potassium [Moles/Vol] 4.3 mmol/L 3.5-5.1 [facility] Protein [Mass/Vol] 6.1 g/dL Low 6.4-8.2 [facility] Sodium [Moles/Vol] 128 mmol/L Low 136-145 [facility] Urea nitrogen [Mass/Vol] 25.0 mg/dL High 7.0-18.0 [facility] Urea nitrogen/Creatinine [Mass ratio] 26.6 mg/mg [facility] No Panel InformationOrdered By: Jackson Mondragon on 12-03-2024 1.5 g/dL Low 3.4-5.0 [facility] 260 U/L High 46-116 [facility] 39 U/L 14-59 [facility] 125 U/L High 15-37 [facility] 26.6 [facility] 25.0 mg/dL High 7.0-18.0 [facility] 9.0 mg/dL 8.5-10.1 [facility] 97 mmol/L Low 98-107 [facility] 18.2 mmol/L Low 21.0-32.0 [facility] 0.94 mg/dL 0.55-1.02 [facility] >60 >=60 mL/min/1.7 3m 2 [facility] 118 mg/dL High 74-106 [facility] 4.3 mmol/L 3.5-5.1 [facility] 128 mmol/L Low 136-145 [facility] 0.8 mg/dL 0.2-1.0 [facility] 6.1 g/dL Low 6.4-8.2 [facility] Serum or plasma albumin/glob ulin mass ratioOrdered By: Jackson Mondragon on 12-03-2024 Albumin/Globulin [Mass ratio] 0.3 {ratio} [facility] Serum or plasma anion gap de terminationOrdered By: Jackson Mondragon on 12-03-2024 Anion gap [Moles/Vol] 17.1 mmol/L [facility] Erythrocyte distribution wid th Auto (RBC) [Ratio]Ordered By: Jackson Mondragon on 12-02-2024 Erythrocyte distribution width (RBC) [Ratio] 14.6 % 11.0-15.0 [facility] Globulin Calc (S) [Mass/Vol] Ordered By: Jackson Mondragon on 12-02-2024 Globulin (S) [Mass/Vol] 4.4 g/dL [facility] Glomerular filtration rate ( GFR) estimation in non- AmericanOrdered By: Jackson Mondragon on 12-02-2024 GFR/1.73 sq M.predicted among non-blacks MDRD (S/P/Bld) [Vol rate/Area] mL/min/{1.73_m2} >=60 mL/min/1.73m 2 [facility] Hematocrit Auto (Bld) [Volum e fraction]Ordered By: Jackson Mondragon on 12-02-2024 Hematocrit (Bld) [Volume fraction] 29.7 % Low 36.0-48.0 [facility] Hemoglobin [Mass/volume] in BloodOrdered By: Jackson Mondragon on 12-02-2024 Hemoglobin (Bld) [Mass/Vol] 10.3 g/dL Low 12.0-16.0 [facility] - Chemistry and C hemistry - challengeOrdered By: Jackson Mondragon on 12-02-2024 Calcium [Mass/Vol] 8.7 mg/dL 8.5-10.1 [facility] Chloride [Moles/Vol] 94 mmol/L Low 98-107 [facility] CO2 [Moles/Vol] 19.6 mmol/L Low 21.0-32.0 [facility] Creatinine [Mass/Vol] 0.92 mg/dL 0.55-1.02 [facility] GFR/1.73 sq M.predicted MDRD (S/P/Bld) [Vol rate/Area] mL/min/{1.73_m2} >=60 mL/min/1.73m 2 [facility] Glucose [Mass/Vol] 125 mg/dL High 74-106 [facility] Potassium [Moles/Vol] 4.2 mmol/L 3.5-5.1 [facility] Sodium [Moles/Vol] 127 mmol/L Low 136-145 [facility] Urea nitrogen [Mass/Vol] 22.0 mg/dL High 7.0-18.0 [facility] Urea nitrogen/Creatinine [Mass ratio] 23.9 mg/mg [facility] Albumin [Mass/Vol] 1.6 g/dL Low 3.4-5.0 [facility] ALP [Catalytic activity/Vol] 258 U/L High 46-116 [facility] ALT [Catalytic activity/Vol] 39 U/L 14-59 [facility] AST [Catalytic activity/Vol] 115 U/L High 15-37 [facility] Bilirubin [Mass/Vol] 1.3 mg/dL High 0.2-1.0 [facility] Protein [Mass/Vol] 6.0 g/dL Low 6.4-8.2 [facility] Leukocytes [#/volume] correc patty for nucleated erythrocytes in Blood by Automated counOrdered By: Jackson Mondragon on 12-02-2024 WBC corrected for nucl RBC Auto (Bld) [#/Vol] 9.6 10 3/uL 4.0-11.0 [facility] MCH Auto (RBC) [Entitic mass ]Ordered By: Jackson Mondragon on 12-02-2024 MCH (RBC) [Entitic mass] 33.2 pg 26.7-34.0 [facility] MCHC Auto (RBC) [Mass/Vol]Or dered By: Jackson Mondragon on 12-02-2024 MCHC (RBC) [Mass/Vol] 34.7 g/dL 29.9-35.2 [facility] MCV Auto (RBC) [Entitic vol] Ordered By: Jackson Mondragon on 12-02-2024 MCV (RBC) [Entitic vol] 95.8 fL 81.0-99.0 [facility] No Panel InformationOrdered By: Jackson Mondragon on 12-02-2024 23.9 [facility] 22.0 mg/dL High 7.0-18.0 [facility] 8.7 mg/dL 8.5-10.1 [facility] 94 mmol/L Low 98-107 [facility] 19.6 mmol/L Low 21.0-32.0 [facility] 0.92 mg/dL 0.55-1.02 [facility] >60 >=60 mL/min/1.7 3m 2 [facility] 125 mg/dL High 74-106 [facility] 4.2 mmol/L 3.5-5.1 [facility] 127 mmol/L Low 136-145 [facility] Phosphorus Level 4.1 mg/dL 2.6-4.7 [facility] 4.1 mg/dL 2.6-4.7 [facility] 1.6 g/dL Low 3.4-5.0 [facility] 258 U/L High 46-116 [facility] 39 U/L 14-59 [facility] 115 U/L High 15-37 [facility] 1.3 mg/dL High 0.2-1.0 [facility] 6.0 g/dL Low 6.4-8.2 [facility] Platelet mean volume Auto (B ld) [Entitic vol]Ordered By: Jackson Mondragon on 12-02-2024 Platelet mean volume (Bld) [Entitic vol] 10.3 fL 9.5-13.5 [facility] Platelets Auto (Bld) [#/Vol] Ordered By: Jackson Mondragon on 12-02-2024 Platelets (Bld) [#/Vol] 277 10 3/uL 150-450 [facility] RBC Auto (Bld) [#/Vol]Ordere d By: Jackson Mondragon on 12-02-2024 RBC (Bld) [#/Vol] 3.10 10 6/uL Low 4.20-5.40 [facility] Serum or plasma albumin/glob ulin mass ratioOrdered By: Jackson Mondragon on 12-02-2024 Albumin/Globulin [Mass ratio] 0.4 {ratio} [facility] Serum or plasma anion gap de terminationOrdered By: Jackson Mondragon on 12-02-2024 Anion gap [Moles/Vol] 17.6 mmol/L [facility] Erythrocyte distribution wid th Auto (RBC) [Ratio]Ordered By: Jackson Mondragon on 12-01-2024 Erythrocyte distribution width (RBC) [Ratio] 14.2 % 11.0-15.0 [facility] Globulin Calc (S) [Mass/Vol] Ordered By: Jackson Mondragon on 12-01-2024 Globulin (S) [Mass/Vol] 4.0 g/dL [facility] Glomerular filtration rate ( GFR) estimation in non- AmericanOrdered By: Jackson Mondragon on 12-01-2024 GFR/1.73 sq M.predicted among non-blacks MDRD (S/P/Bld) [Vol rate/Area] mL/min/{1.73_m2} >=60 mL/min/1.73m 2 [facility] Hematocrit Auto (Bld) [Volum e fraction]Ordered By: Jackson Mondragon on 12-01-2024 Hematocrit (Bld) [Volume fraction] 29.1 % Low 36.0-48.0 [facility] Hemoglobin [Mass/volume] in BloodOrdered By: Jackson Mondragon on 12-01-2024 Hemoglobin (Bld) [Mass/Vol] 10.3 g/dL Low 12.0-16.0 [facility] - Chemistry and C hemistry - challengeOrdered By: Jackson Mondragon on 12-01-2024 Calcium [Mass/Vol] 8.3 mg/dL Low 8.5-10.1 [facility] Chloride [Moles/Vol] 90 mmol/L Low 98-107 [facility] CO2 [Moles/Vol] 23.3 mmol/L 21.0-32.0 [facility] Creatinine [Mass/Vol] 0.89 mg/dL 0.55-1.02 [facility] GFR/1.73 sq M.predicted MDRD (S/P/Bld) [Vol rate/Area] mL/min/{1.73_m2} >=60 mL/min/1.73m 2 [facility] Glucose [Mass/Vol] 110 mg/dL High 74-106 [facility] Potassium [Moles/Vol] 3.3 mmol/L Low 3.5-5.1 [facility] Sodium [Moles/Vol] 124 mmol/L Critically low 136-145 [facility] Comment on above: RESULTS CALLED TO NANNETTE HUANG RN at 2214 Urea nitrogen [Mass/Vol] 16.0 mg/dL 7.0-18.0 [facility] Urea nitrogen/Creatinine [Mass ratio] 18.0 mg/mg [facility] Magnesium [Mass/Vol] 1.8 mg/dL 1.8-2.4 [facility] Albumin [Mass/Vol] 1.8 g/dL Low 3.4-5.0 [facility] ALP [Catalytic activity/Vol] 250 U/L High 46-116 [facility] ALT [Catalytic activity/Vol] 32 U/L 14-59 [facility] AST [Catalytic activity/Vol] 80 U/L High 15-37 [facility] Bilirubin [Mass/Vol] 2.0 mg/dL High 0.2-1.0 [facility] CK [Catalytic activity/Vol] 316 U/L High 26-192 [facility] Osmolality [Osmolality] 250 mosm/kg Abnormal 275-295 [facility] Comment on above: Performed at: [address] [id number] Director: Ab Giordano MD, Phone: [phone] Protein [Mass/Vol] 5.8 g/dL Low 6.4-8.2 [facility] Laboratory - Chemistry and C hemistry - challengeOrdered By: Maureen Gilmore on 12-01-2024 TSH Qn 3.464 m[IU]/L 0.358-3.740 [facility] Leukocytes [#/volume] correc patty for nucleated erythrocytes in Blood by Automated counOrdered By: Jackson Mondragon on 12-01-2024 WBC corrected for nucl RBC Auto (Bld) [#/Vol] 10.6 10 3/uL 4.0-11.0 [facility] MCH Auto (RBC) [Entitic mass ]Ordered By: Jackson Mondragon on 12-01-2024 MCH (RBC) [Entitic mass] 33.3 pg 26.7-34.0 [facility] MCHC Auto (RBC) [Mass/Vol]Or dered By: Jackson Mondragon on 12-01-2024 MCHC (RBC) [Mass/Vol] 35.4 g/dL High 29.9-35.2 [facility] MCV Auto (RBC) [Entitic vol] Ordered By: Jackson Mondragon on 12-01-2024 MCV (RBC) [Entitic vol] 94.2 fL 81.0-99.0 [facility] No Panel InformationOrdered By: Jackson Mondragon on 12-01-2024 18.0 [facility] 16.0 mg/dL 7.0-18.0 [facility] 8.3 mg/dL Low 8.5-10.1 [facility] 90 mmol/L Low 98-107 [facility] 23.3 mmol/L 21.0-32.0 [facility] 0.89 mg/dL 0.55-1.02 [facility] >60 >=60 mL/min/1.7 3m 2 [facility] 110 mg/dL High 74-106 [facility] 3.3 mmol/L Low 3.5-5.1 [facility] 124 mmol/L Critically low 136-145 [facility] 1.8 mg/dL 1.8-2.4 [facility] 25-Hydroxy Vitamin D Total 134.0 ng/mL [facility] Comment on above: <20 ng/mL Vit D defi cient20-<30 ng/mL Vit D [id number] ng/mL Vit D sufficient>100 ng/mL Potential Toxicity Cortisol AM Sample 79.4 ug/dL Abnormal 6.2-19.4 [facility] Comment on above: Results confirmed on dilution.Performed at: [facility] [address] [id number] Director: Marcelo Parikh PhD, Phone: [phone] Troponin I High Sensitivity 12.0 pg/mL 4.0-51.3 [facility] Comment on above: CUT-OFF POINTS HAVE [...] AND CLINICAL INFORMATION. 250 mOsmol/kg Abnormal 275-295 [facility] 79.4 ug/dL Abnormal 6.2-19.4 [facility] 134.0 ng/mL [facility] 12.0 pg/mL 4.0-51.3 [facility] 316 U/L High 26-192 [facility] 1.8 g/dL Low 3.4-5.0 [facility] 250 U/L High 46-116 [facility] 32 U/L 14-59 [facility] 80 U/L High 15-37 [facility] 2.0 mg/dL High 0.2-1.0 [facility] 5.8 g/dL Low 6.4-8.2 [facility] No Panel InformationOrdered By: Maureen Gilmore on 12-01-2024 3.464 u[iU]/mL 0.358-3.740 [facility] Platelet mean volume Auto (B ld) [Entitic vol]Ordered By: Jackson Mondragon on 12-01-2024 Platelet mean volume (Bld) [Entitic vol] 10.5 fL 9.5-13.5 [facility] Platelets Auto (Bld) [#/Vol] Ordered By: Jackson Mondragon on 12-01-2024 Platelets (Bld) [#/Vol] 244 10 3/uL 150-450 [facility] RBC Auto (Bld) [#/Vol]Ordere d By: Jackson Mondragon on 12-01-2024 RBC (Bld) [#/Vol] 3.09 10 6/uL Low 4.20-5.40 [facility] Serum or plasma albumin/glob ulin mass ratioOrdered By: Jackson Mondragon on 12-01-2024 Albumin/Globulin [Mass ratio] 0.5 {ratio} [facility] Serum or plasma anion gap de terminationOrdered By: Jackson Mondragon on 12-01-2024 Anion gap [Moles/Vol] 14.0 mmol/L [facility] Basophils Auto (Bld) [#/Vol] Ordered By: Isha Holley on 11-30-2024 Basophils (Bld) [#/Vol] 0.0 10 3/uL 0.0-0.1 [facility] Basophils/100 WBC Auto (Bld) Ordered By: Isha Holley on 11-30-2024 Basophils/100 WBC (Bld) 0.1 % Low 0.2-2.0 [facility] Eosinophils/100 WBC Auto (Bl d)Ordered By: Isha Holley on 11-30-2024 Eosinophils/100 WBC (Bld) 0.1 % Low 0.9-7.0 [facility] Erythrocyte distribution wid th Auto (RBC) [Ratio]Ordered By: Isha Holley on 11-30-2024 Erythrocyte distribution width (RBC) [Ratio] 14.3 % 11.0-15.0 [facility] Globulin Calc (S) [Mass/Vol] Ordered By: Isha Holley on 11-30-2024 Globulin (S) [Mass/Vol] 4.4 g/dL [facility] Glomerular filtration rate ( GFR) estimation in non- AmericanOrdered By: Isha Holley on 11-30-2024 GFR/1.73 sq M.predicted among non-blacks MDRD (S/P/Bld) [Vol rate/Area] mL/min/{1.73_m2} >=60 mL/min/1.73m 2 [facility] Hematocrit Auto (Bld) [Volum e fraction]Ordered By: Isha Holley on 11-30-2024 Hematocrit (Bld) [Volume fraction] 31.3 % Low 36.0-48.0 [facility] Hemoglobin [Mass/volume] in BloodOrdered By: Isha Holley on 11-30-2024 Hemoglobin (Bld) [Mass/Vol] 11.3 g/dL Low 12.0-16.0 [facility] INR in Platelet poor plasma by Coagulation assayOrdered By: Isha Holley on 11-30-2024 INR Coag (PPP) [Relative time] 0.97 {INR} [facility] Comment on above: DESIRED INR:2.0-3.0 CONDITIONS NOT LISTED BELOW2.5-3.5 FOR PROSTHETIC HEART VALVE REPLACEMENT2.5-3.5 [facility] - Chemistry and C hemistry - challengeOrdered By: Maureen Gilmore on 11-30-2024 Bilirubin Ql (U) SMALL Abnormal NEGATIVE [facility] Glucose (U) [Mass/Vol] Negative NEGATIVE [facility] Ketones Ql (U) TRACE mg/dL Abnormal NEGATIVE [facility] pH (U) 5.5 [pH] 5.0-9.0 [facility] Specific gravity (U) [Rel density] 1.015 1.005-1.025 [facility] Urobilinogen Qn (U) 2.0 {[place]'U}/dL Abnormal 0.2-1.0 [facility] - Chemistry and C hemistry - challengeOrdered By: Isha Holley on 11-30-2024 HCO3 (Bld) [Moles/Vol] 22.1 mmol/L 22.0-26.0 [facility] Albumin [Mass/Vol] 1.9 g/dL Low 3.4-5.0 [facility] ALP [Catalytic activity/Vol] 285 U/L High 46-116 [facility] ALT [Catalytic activity/Vol] 35 U/L 14-59 [facility] AST [Catalytic activity/Vol] 90 U/L High 15-37 [facility] Bilirubin [Mass/Vol] 2.7 mg/dL High 0.2-1.0 [facility] Calcium [Mass/Vol] 8.7 mg/dL 8.5-10.1 [facility] Chloride [Moles/Vol] 83 mmol/L Critically low 98-107 [facility] Comment on above: RESULTS CALLED TO rosalinda moran rn CK [Catalytic activity/Vol] 565 U/L Critically high 26-192 [facility] Comment on above: RESULTS CALLED TO rosalinda moran rn CO2 [Moles/Vol] 22.8 mmol/L 21.0-32.0 [facility] Creatinine [Mass/Vol] 0.85 mg/dL 0.55-1.02 [facility] GFR/1.73 sq M.predicted MDRD (S/P/Bld) [Vol rate/Area] mL/min/{1.73_m2} >=60 mL/min/1.73m 2 [facility] Glucose [Mass/Vol] 142 mg/dL High 74-106 [facility] Natriuretic peptide B (Bld) [Mass/Vol] 1858.0 pg/mL Critically high <=900.0 [facility] Comment on above: RESULTS CALLED TO rosalinda moran rn Potassium [Moles/Vol] 3.7 mmol/L 3.5-5.1 [facility] Protein [Mass/Vol] 6.3 g/dL Low 6.4-8.2 [facility] Sodium [Moles/Vol] 119 mmol/L Critically low 136-145 [facility] Comment on above: RESULTS CALLED TO rosalinda moran rn Urea nitrogen [Mass/Vol] 10.0 mg/dL 7.0-18.0 [facility] Urea nitrogen/Creatinine [Mass ratio] 11.8 mg/mg [facility] - Hematology and Cell countsOrdered By: Isha Holley on 11-30-2024 Immature granulocytes/100 WBC (Bld) 0.6 % High 0.0-0.5 [facility] - Specimen inform ationOrdered By: Maureen Gilmore on 11-30-2024 Appearance (U) CLEAR CLEAR [facility] Color (U) DK. ORANGE YELLOW [facility] - UrinalysisOrder ed By: Maureen Gilmore on 11-30-2024 Leukocyte esterase Test strip Ql (U) Negative NEGATIVE [facility] Nitrite Ql (U) Negative NEGATIVE [facility] Protein Ql (U) Negative NEG/TRACE [facility] Leukocytes [#/volume] correc patty for nucleated erythrocytes in Blood by Automated counOrdered By: Isha Holley on 11-30-2024 WBC corrected for nucl RBC Auto (Bld) [#/Vol] 10.8 10 3/uL 4.0-11.0 [facility] Lymphocytes Auto (Bld) [#/Vo l]Ordered By: Isha Holley on 11-30-2024 Lymphocytes (Bld) [#/Vol] 1.1 10 3/uL Low 1.2-3.8 [facility] Lymphocytes/100 WBC Auto (Bl d)Ordered By: Isha Holley on 11-30-2024 Lymphocytes/100 WBC (Bld) 10.3 % Low 20.5-60.0 [facility] MCH Auto (RBC) [Entitic mass ]Ordered By: Isha Holley on 11-30-2024 MCH (RBC) [Entitic mass] 33.9 pg 26.7-34.0 [facility] MCHC Auto (RBC) [Mass/Vol]Or dered By: Isha Holley on 11-30-2024 MCHC (RBC) [Mass/Vol] 36.1 g/dL High 29.9-35.2 [facility] MCV Auto (RBC) [Entitic vol] Ordered By: Isha Holley on 11-30-2024 MCV (RBC) [Entitic vol] 94.0 fL 81.0-99.0 [facility] Monocytes Auto (Bld) [#/Vol] Ordered By: Isha Holley on 11-30-2024 Monocytes (Bld) [#/Vol] 1.0 10 3/uL High 0.3-0.8 [facility] Monocytes/100 WBC Auto (Bld) Ordered By: Isha Holley on 11-30-2024 Monocytes/100 WBC (Bld) 8.9 % 1.7-12.0 [facility] Neutrophils Auto (Bld) [#/Vo l]Ordered By: Isha Holley on 11-30-2024 Neutrophils (Bld) [#/Vol] 8.6 10 3/uL High 1.4-6.5 [facility] Neutrophils/100 WBC Auto (Bl d)Ordered By: Isha Holley on 11-30-2024 Neutrophils/100 WBC (Bld) 80.0 % High 43.0-75.0 [facility] No Panel InformationOrdered By: Maureen Gilmore on 11-30-2024 Urine Microscopic Review NO [facility] Urine Occult Blood Negative NEGATIVE [facility] NO [facility] SMALL Abnormal NEGATIVE [facility] Negative NEG/TRACE [facility] CLEAR CLEAR [facility] DK. ORANGE YELLOW [facility] TRACE mg/dL Abnormal NEGATIVE [facility] 5.5 5.0-9.0 [facility] 1.015 1.005-1.025 [facility] 2.0 EU/dL Abnormal 0.2-1.0 [facility] No Panel InformationOrdered By: Jackson Mondragon on 11-30-2024 Urine Osmolality 330 mOsmol/kg . [facility] Comment on above: 24 hr : 300 - 900 Ra ndom: 50 - 1400 After 12hr fluid restriction: >850Performed at: - [facility] [address] [id number] Director: Ab Giordano MD, Phone: [phone] 330 mOsmol/kg . [facility] No Panel InformationOrdered By: Isha Holley on 11-30-2024 Hubert Test Positive POSITIVE [facility] Arterial Blood Base Excess -0.9 mmol/L <2.0-2.0 [facility] Arterial Blood Oxygen Saturation 97.9 % [facility] Arterial Blood Partial Pressure CO2 27.4 mm[Hg] Low 35.0-45.0 [facility] Arterial Blood Partial Pressure O2 89.4 mm[Hg] 80.0-100.0 [facility] Arterial Blood pH 7.514 Critically high 7.350-7.450 F [facility] Comment on above: RESULTS CALLED TO DR Ana MONZON Blood Gas Liter Flow 3.5 [facility] Blood Gas Sample Site L [facility] Oxygen Delivery Device N/C [facility] Positive POSITIVE [facility] -0.9 mmol/L <2.0-2.0 [facility] 22.1 mmol/L 22.0-26.0 [facility] 3.5 [facility] N/C [facility] 97.9 % [facility] 27.4 mm[Hg] Low 35.0-45.0 [facility] 7.514 Critically high 7.350-7.450 [facility] 89.4 mm[Hg] 80.0-100.0 [facility] L [facility] Eosinophils # (Auto) 0.0 10 3/uL 0.0-0.7 Fir [facility] Immature Granulocyte # (Auto) 0.06 10 3/uL High 0.00-0.03 [facility] Troponin I High Sensitivity 12.4 pg/mL 4.0-51.3 [facility] Comment on above: CUT-OFF POINTS HAVE [...] CLINICAL INFORMATION. 1858.0 pg/mL Critically high <=900.0 [facility] 12.4 pg/mL 4.0-51.3 [facility] 565 U/L Critically high 26-192 [facility] 1.9 g/dL Low 3.4-5.0 [facility] 0.0 10 3/uL 0.0-0.7 [facility] 285 U/L High 46-116 [facility] 35 U/L 14-59 [facility] 90 U/L High 15-37 [facility] 11.8 [facility] 0.06 10 3/uL High 0.00-0.03 [facility] 10.0 mg/dL 7.0-18.0 [facility] 0.6 % High 0.0-0.5 [facility] 8.7 mg/dL 8.5-10.1 [facility] 83 mmol/L Critically low 98-107 [facility] 22.8 mmol/L 21.0-32.0 [facility] 0.85 mg/dL 0.55-1.02 [facility] >60 >=60 mL/min/1.7 3m 2 [facility] 142 mg/dL High 74-106 [facility] 3.7 mmol/L 3.5-5.1 [facility] 119 mmol/L Critically low 136-145 [facility] 2.7 mg/dL High 0.2-1.0 [facility] 6.3 g/dL Low 6.4-8.2 [facility] Platelet mean volume Auto (B ld) [Entitic vol]Ordered By: Isha Holley on 11-30-2024 Platelet mean volume (Bld) [Entitic vol] 10.4 fL 9.5-13.5 [facility] Platelets Auto (Bld) [#/Vol] Ordered By: Isha Holley on 11-30-2024 Platelets (Bld) [#/Vol] 249 10 3/uL 150-450 [facility] Prothrombin time (PT)Ordered By: Isha Holley on 11-30-2024 PT Coag (PPP) [Time] 10.3 s 9.0-11.6 [facility] RBC Auto (Bld) [#/Vol]Ordere d By: Isha Holley on 11-30-2024 RBC (Bld) [#/Vol] 3.33 10 6/uL Low 4.20-5.40 [facility] Serum or plasma albumin/glob ulin mass ratioOrdered By: Isha Holley on 11-30-2024 Albumin/Globulin [Mass ratio] 0.4 {ratio} [facility] Serum or plasma anion gap de terminationOrdered By: Isha Holley on 11-30-2024 Anion gap [Moles/Vol] 16.9 mmol/L [facility] ANION GAPon 06-11-2024 Anion gap [Moles/Vol] 15.0 mmol/L Normal 8.0-16.0 [facility] Comment on above: Result Comment: ANIO N GAP = Sodium -(Chloride + CO2) Performed By: #### H H, BMP, ANION, EGFR1 #### [facility] [employer] [facility] [address] [place] [address] Anion Gapon 06-11-2024 Anion gap [Moles/Vol] 15.0 mmol/L 8.0 - 16.0 meq/L [facility] Comment on above: ANION GAP = Sodium - (Chloride + CO2) Performed at [facility] [employer] [facility] [address] [place] [address] BASIC METABOL PANELon 2024 Calcium [Mass/Vol] 8.7 mg/dL Normal 8.5-10.5 [facility] Comment on above: Performed By: #### E GFR1, BMP, HH, ANION #### [facility] [employer] [address] [place] [address] Chloride [Moles/Vol] 100 mmol/L Normal 98-111 [facility] Comment on above: Performed By: #### E GFR1, BMP, HH, ANION #### [facility] [employer] [facility] [address] [place] [address] CO2 [Moles/Vol] 24 mmol/L Normal 23-33 [facility] Comment on above: Performed By: #### E GFR1, BMP, HH, ANION #### [facility] [employer] [facility] [address] [place] [address]90 Creatinine [Mass/Vol] 0.3 mg/dL Low 0.4-1.2 [facility] Comment on above: Performed By: #### E GFR1, BMP, HH, ANION #### [facility] [employer] [facility] [address] [place] [address]65 Glucose [Mass/Vol] 109 mg/dL High 70-108 [facility] Comment on above: Performed By: #### E GFR1, BMP, HH, ANION #### [facility] [employer] [facility] [address] [place] [address] Potassium [Moles/Vol] 3.2 mmol/L Low 3.5-5.2 [facility] Comment on above: Performed By: #### E GFR1, BMP, HH, ANION #### [facility] [employer] [facility] [address] [place] [address] Sodium [Moles/Vol] 139 mmol/L Normal 135-145 [facility] Comment on above: Performed By: #### E GFR1, BMP, HH, ANION #### [facility] [employer] [facility] [address] [place] [address] Urea nitrogen [Mass/Vol] 4 mg/dL Low 7-22 [facility] Comment on above: Performed By: #### E GFR1, BMP, HH, ANION #### [facility] [address] [place] [address] Basic metabolic 2000 panelon 06-11-2024 Calcium [Mass/Vol] 8.7 mg/dL 8.5 - 10.5 mg/dL [facility] [employer] Comment on above: Performed at [facility] [address] [place] [address] Chloride [Moles/Vol] 100 mmol/L 98 - 111 meq/L [facility] CO2 [Moles/Vol] 24 mmol/L 23 - 33 meq/L [facility] [employer] Creatinine [Mass/Vol] 0.3 mg/dL Low 0.4 - 1.2 mg/dL [facility] [facility] Glucose [Mass/Vol] 109 mg/dL High 70 - 108 mg/dL Ronal n [employer] Interpretation and review of laboratory results Abnormal [facility] Potassium [Moles/Vol] 3.2 mmol/L Low 3.5 - 5.2 meq/L [facility] Sodium [Moles/Vol] 139 mmol/L 135 - 145 meq/L [facility] [employer] Urea nitrogen [Mass/Vol] 4 mg/dL Low 7 - 22 mg/dL [facility] GFR, ESTIMATEDon 06-11-2024 GFR/1.73 sq M.predicted MDRD (S/P/Bld) [Vol rate/Area] mL/min/{1.73_m2} Normal >60 [facility] Comment on above: Pediatric calculator link https://www.kidney.org/professionals/kdoqi/gfr_calculatorped [...] that affects renal tubular secretion. Performed at [facility] [address] [address] Result Comment: Pedi atric calculator link https://www.kidney.org/professionals/kdoqi/gfr_calculatorped [...] #### H H, BMP, ANION, EGFR1 #### [facility] [address] [place] [address] HGB,HCTon 06-11-2024 Hematocrit (Bld) [Volume fraction] 28.7 % Low 37.0-47.0 [facility] Comment on above: Performed at [facility] [address] [place] [address] Performed By: #### E GFR1, BMP, HH, ANION #### [facility] [address] [place] [address] Hemoglobin (Bld) [Mass/Vol] 9.1 g/dL Low 12.0-16.0 [facility] Comment on above: Performed By: #### E GFR1, BMP, HH, ANION #### [facility] [address] [place] [address] Hemoglobin and Hematocrit pa kathryn (Bld)on 06-11-2024 Interpretation and review of laboratory results Abnormal [facility] No Panel Informationon 06-11 [facility] ANION GAPon 06-10-2024 Anion gap [Moles/Vol] 15.0 mmol/L Normal 8.0-16.0 [facility] Comment on above: Result Comment: ANIO N GAP = Sodium -(Chloride + CO2) Performed By: #### A RUTH MCMILLAN, AMANDA, BMP #### [facility] [employer] [facility] [address] [place] [address] Anion Gapon 06-10-2024 Anion gap [Moles/Vol] 15.0 mmol/L 8.0 - 16.0 meq/L [facility] Comment on above: ANION GAP = Sodium - (Chloride + CO2) Performed at [facility] [address] [place] [address] BASIC METABOL PANELon 2024 Calcium [Mass/Vol] 8.7 mg/dL Normal 8.5-10.5 [facility] Comment on above: Performed By: #### A RUTH MCMILLAN, AMANDA, BMP #### [facility] [employer] [facility] [address] [place] [address] Chloride [Moles/Vol] 107 mmol/L Normal 98-111 [facility] Comment on above: Performed By: #### A RUTH MCMILLAN, AMANDA, BMP #### [facility] [address] [place] [address] CO2 [Moles/Vol] 24 mmol/L Normal 23-33 [facility] Comment on above: Performed By: #### A RUTH MCMILLAN, AMANDA, BMP #### [facility] [address] [place] [address] Creatinine [Mass/Vol] 0.4 mg/dL Normal 0.4-1.2 [facility] Comment on above: Performed By: #### A RUTH MCMILLAN, HH, BMP #### [facility] [address] [place] [address] Glucose [Mass/Vol] 110 mg/dL High 70-108 [facility] Comment on above: Performed By: #### A RUTH MCMILLAN, HH, BMP #### [facility] [employer] [facility] [facility] [address] [place] [address] Potassium [Moles/Vol] 3.3 mmol/L Low 3.5-5.2 [facility] Comment on above: Performed By: #### A RUTH MCMILLAN, AMANDA, BMP #### [facility] [employer] [facility] [address] [place] [address] Sodium [Moles/Vol] 146 mmol/L High 135-145 [facility] Comment on above: Performed By: #### A RUTH MCMILLAN, AMANDA, BMP #### [facility] [employer] [facility] [facility] [address] [place] [address] Urea nitrogen [Mass/Vol] 4 mg/dL Low 7-22 [facility] Comment on above: Performed By: #### A RUTH MCMILLAN, AMANDA, BMP #### [facility] [address] [place] [address] Basic metabolic 2000 panelon 06-10-2024 Calcium [Mass/Vol] 8.7 mg/dL 8.5 - 10.5 mg/dL [facility] [employer] Comment on above: Performed at [facility] [address] [place] [address] Chloride [Moles/Vol] 107 mmol/L 98 - 111 meq/L [facility] [employer] CO2 [Moles/Vol] 24 mmol/L 23 - 33 meq/L [facility] [employer] Creatinine [Mass/Vol] 0.4 mg/dL 0.4 - 1.2 mg/dL Bon [facility] Glucose [Mass/Vol] 110 mg/dL High 70 - 108 mg/dL Ronal n [facility] [employer] Interpretation and review of laboratory results Abnormal Bon [facility] [employer] Potassium [Moles/Vol] 3.3 mmol/L Low 3.5 - 5.2 meq/L [facility] Sodium [Moles/Vol] 146 mmol/L High 135 - 145 meq/L B on [facility] [employer] Urea nitrogen [Mass/Vol] 4 mg/dL Low 7 - 22 mg/dL [facility] [employer] EKG 12 Leadon 06-10-2024 Atrial Rate 100 BPM [facility] P Gary 16 degrees [facility] P-R Interval 158 ms [facility] Q-T Interval 346 ms [facility] QRS Duration 86 ms [facility] QTc Calculation (Bazett) 446 ms [facility] R Gary 27 degrees [facility] T Gary 65 degrees [facility] Ventricular Rate [address] [facility] Normal sinus rhythm Nonspecific ST and T wave abnormality Abnormal ECG Confirmed by JASPER CARDOZO ([id number]) on 06/10/2024 11:52:42 AM [facility] STR MUSE Jasper Cardozo MD - 06/10/2024 Normal sinus rhythm Nonspecific ST and T wave abnormality Abnormal ECG Confirmed by JASPER CARDOZO ([id number]) on 06/10/2024 11:52:42 AM [facility] GFR, ESTIMATEDon 06-10-2024 GFR/1.73 sq M.predicted MDRD (S/P/Bld) [Vol rate/Area] mL/min/{1.73_m2} Normal >60 [facility] Comment on above: Pediatric calculator link https://www.kidney.org/professionals/kdoqi/gfr_calculatorped [...] that affects renal tubular secretion. Performed at [facility] [employer] [facility] [address] [place] [address] Result Comment: Pedi atric calculator link https://www.kidney.org/professionals/kdoqi/gfr_calculatorped [...] secretion. Performed By: #### A RUTH MCMILLAN, HH, BMP #### [facility] [address] [place] [address] HGB,HCTon 06-10-2024 Hematocrit (Bld) [Volume fraction] 28.0 % Low 37.0-47.0 [employer] Comment on above: Performed at [facility] [address] [place] [address] Performed By: #### A HIPOLITO, RUTH, HH, BMP #### [facility] [address] [place] [address] Hemoglobin (Bld) [Mass/Vol] 9.0 g/dL Low 12.0-16.0 [employer] Comment on above: Performed By: #### A RUTH MCMILLAN, HH, BMP #### [employer] [address] [place] [address] Hemoglobin and Hematocrit pa kathryn (Bld)on 06-10-2024 Interpretation and review of laboratory results Abnormal [employer] No Panel Informationon 06-10 [employer] XR WRIST LEFT (MIN 3 VIEWS)o n [...] Levy Hayes MD 06/10/24 Final result Normal [facility] XR Wrist - left 3 Viewson Soft tissue swelling. No acute fracture. This report has been created using voice recognition software. It may contain minor errors which are inherent in voice recognition technology. Electronically signed by Dr. Levy Hayes [facility] XR WRIST LEFT (MIN 3 VIEWS) CLINICAL INFORMATION: Fall left wrist pain COMPARISON: No prior study. TECHNIQUE: Standard views of the wrist were obtained FINDINGS: Mild soft tissue swelling overlies the dorsal aspect of the wrist. No acute fracture is seen. There is some mild deformity of the distal radius. Cannot exclude an old healed fracture. [facility] Levy Hayes MD - 06/10/2024 XR [...] Electronically signed by Dr. Levy Hayes [facility] Radiology Study observation (narrative) [facility] ANION GAPon 06-09-2024 Anion gap [Moles/Vol] 16.0 mmol/L Normal 8.0-16.0 [facility] Comment on above: Result Comment: ANIO N GAP = Sodium -(Chloride + CO2) Performed By: #### H H, BMP, ANION, EGFR1 #### [facility] [address] [place] [address] Anion Gapon 06-09-2024 Anion gap [Moles/Vol] 16.0 mmol/L 8.0 - 16.0 meq/L [facility] Comment on above: ANION GAP = Sodium - (Chloride + CO2) Performed at [facility] [facility] [address] [place] [address] BASIC METABOL PANELon 2024 Calcium [Mass/Vol] 8.4 mg/dL Low 8.5-10.5 [facility] Comment on above: Performed By: #### H H, BMP, ANION, EGFR1 #### [facility] [employer] [facility] [facility] [address] [place] [address] Chloride [Moles/Vol] 103 mmol/L Normal 98-111 [facility] Comment on above: Performed By: #### H H, BMP, ANION, EGFR1 #### [facility] [employer] [facility] [address] [place] [address] CO2 [Moles/Vol] 20 mmol/L Low 23-33 [facility] Comment on above: Performed By: #### H H, BMP, ANION, EGFR1 #### [facility] [employer] [facility] [address] [place] [address] Creatinine [Mass/Vol] 0.6 mg/dL Normal 0.4-1.2 [facility] Comment on above: Performed By: #### H H, BMP, ANION, EGFR1 #### [facility] [address] [place] [address] Glucose [Mass/Vol] 107 mg/dL Normal 70-108 [facility] Comment on above: Performed By: #### H H, BMP, ANION, EGFR1 #### [facility] [employer] [address] [place] [address] Potassium [Moles/Vol] 4.3 mmol/L Normal 3.5-5.2 [facility] Comment on above: Performed By: #### H H, BMP, ANION, EGFR1 #### [employer] [address] [place] [address] Sodium [Moles/Vol] 139 mmol/L Normal 135-145 [facility] Comment on above: Performed By: #### H H, BMP, ANION, EGFR1 #### [employer] [address] [place] [address] Urea nitrogen [Mass/Vol] mg/dL Low 7-22 [facility] Comment on above: Performed By: #### H H, BMP, ANION, EGFR1 #### [employer] [address] [place] [address] Basic metabolic 2000 panelon 06-09-2024 Calcium [Mass/Vol] 8.4 mg/dL Low 8.5 - 10.5 mg/dL Bon [facility] Comment on above: Performed at [facility] [address] [place] [address] Chloride [Moles/Vol] 103 mmol/L 98 - 111 meq/L [facility] CO2 [Moles/Vol] 20 mmol/L Low 23 - 33 meq/L [facility] Creatinine [Mass/Vol] 0.6 mg/dL 0.4 - 1.2 mg/dL [facility] Glucose [Mass/Vol] 107 mg/dL 70 - 108 mg/dL Ronal n [facility] Interpretation and review of laboratory results Abnormal [facility] Potassium [Moles/Vol] 4.3 mmol/L 3.5 - 5.2 meq/L [facility] Sodium [Moles/Vol] 139 mmol/L 135 - 145 meq/L B on [facility] Urea nitrogen [Mass/Vol] mg/dL Low 7 - 22 mg/dL [facility] EKG 12 LeadOrdered By: Maritza Cardozo on 06-09-2024 Atrial Rate 117 BPM [facility] [employer] Work Phone: P Gary 23 degrees [facility] [employer] Work Phone: P-R Interval 154 ms [facility] [employer] Work Phone: Q-T Interval 328 ms [facility] [employer] Work Phone: QRS Duration 90 ms [facility] [employer] Work Phone: QTc Calculation (Bazett) 457 ms [facility] [employer] Work Phone: R Gary 26 degrees [facility] [employer] Work Phone: T Gary 120 degrees [facility] [employer] Work Phone: Ventricular Rate 117 BPM Bon [facility] [employer] Work Phone: [facility] [employer] Work Phone: EKG 12 Leadon 06-09-2024 Sinus tachycardia LVH with repolarization abnormality ( Ayo product ) Cannot rule out Inferior infarct , age undetermined Abnormal ECG No previous ECGs available Confirmed by JASPER CARDOZO ([id number]) on 06/09/2024 11:36:47 AM [facility] STR MUSE Jasper Cardozo MD - 06/09/2024 Sinus tachycardia LVH with repolarization abnormality ( Alderson product ) Cannot rule out Inferior infarct , age undetermined Abnormal ECG No previous ECGs available Confirmed by JASPER CARDOZO ([id number]) on 06/09/2024 11:36:47 AM [facility] EKG 12-LEADon 06-09-2024 EKG 12-LEAD 100 100 158 86 346 446 16 27 65 Normal sinus rhythm Nonspecific ST and T wave abnormality Abnormal ECG Confirmed by JASPER CARDOZO ([id number]) on 06/10/2024 11:52:42 AM [email or web address]?[email or web address] teTime?[email or web address]=[id number]&Date=09-06-19 25&Time=23%3a47%3a11 %3a00&TestType=ECG&S ite=3&OutputType=PDF &Ext=PDF Normal [facility] EKG 12-LEAD 117 117 154 90 328 457 23 26 120 Sinus tachycardia LVH with repolarization abnormality ( Ayo product ) Cannot rule out Inferior infarct , age undetermined Abnormal ECG No previous ECGs available Confirmed by JASPER CARDOZO ([id number]) on 06/09/2024 11:36:47 AM [email or web address]?[email or web address] teTime?[email or web address]=[id number]&Date=09-06-19 25&Time=11%3a22%3a29 %3a00&TestType=ECG&S ite=3&OutputType=PDF &Ext=PDF Normal [facility] GFR, ESTIMATEDon 06-09-2024 GFR/1.73 sq M.predicted MDRD (S/P/Bld) [Vol rate/Area] mL/min/{1.73_m2} Normal >60 [facility] Comment on above: Pediatric calculator link https://www.kidney.org/professionals/kdoqi/gfr_calculatorped [...] that affects renal tubular secretion. Performed [place] [address] Result Comment: Cira miltonc calculator link https://www.kidney.org/professionals/kdoqi/gfr_calculatorped [...] #### H H, BMP, ANION, EGFR1 #### [facility] [address] [place] [address] HGB,HCTon 06-09-2024 Hematocrit (Bld) [Volume fraction] 31.1 % Low 37.0-47.0 [facility] Comment on above: Performed By: #### H H, BMP, ANION, EGFR1 #### [employer] [address] [place] [address] Hemoglobin (Bld) [Mass/Vol] 9.8 g/dL Low 12.0-16.0 [facility] Comment on above: Performed By: #### H H, BMP, ANION, EGFR1 #### [facility] [address] [place] [address] Hemoglobin and Hematocrit pa kathryn (Bld)on 06-09-2024 Hematocrit (Bld) [Volume fraction] 31.1 % Low 37.0 - 47.0 % [employer] Comment on above: Performed at [facility] [address] [place] [address] Hemoglobin (Bld) [Mass/Vol] 9.8 g/dL Low [employer] Interpretation and review of laboratory results Abnormal [employer] No Panel Informationon 06-09 [employer] XR LUMBAR SPINE 1 VWon 06-09 XR [...] Levy Hayes MD 06/09/24 Final result Normal [facility] XR Lumbar spine Single viewo n 06-09-2024 Postop appearance of the lumbar spine. This report has been created using voice recognition software. It may contain minor errors which are inherent in voice recognition technology. Electronically signed by Dr. Levy Hayes [facility] MOBILE LATERAL LUMBAR SPINE: CLINICAL INFORMATION: surgery COMPARISON: No prior study. TECHNIQUE: A single lateral mobile view of the lumbar spine was obtained following surgery. FINDINGS: Posterior lumbar fusion has been performed with pedicle screws and rods bridging the L4-5 level posteriorly. [facility] Levy Hayes MD - 06/09/2024 MOBILE [...] Electronically signed by Dr. Levy Hayes [facility] XR LUMBAR SPINE 1 VWon 06-08 [...] Levy Hayes MD 06/08/24 Final result Normal [facility] XR Lumbar spine Single viewo n 06-08-2024 Radiology Study observation (narrative) [facility] Intraoperative appearance of the lumbar spine. This report has been created using voice recognition software. It may contain minor errors which are inherent in voice recognition technology. Electronically signed by Dr. Levy Hayes [facility] MOBILE LATERAL LUMBAR SPINE: CLINICAL INFORMATION: surgery COMPARISON: No prior study. TECHNIQUE: A single lateral mobile view of the lumbar spine was obtained For localization purposes. FINDINGS: 2 spinal needles are present posteriorly, directed at the L3-4 and L4-5 disc spaces. [facility] Levy Hayes MD - 06/08/2024 MOBILE [...] technology. Electronically signed by Dr. Levy Hayes [facility] Radiology Study observation (narrative) [facility] XR Lumbar spine Single viewO rdered By: Levy Hayes on 06-08-2024 [facility] Work Phone: Estimated glomerular filtrat ion rate (GFR) non- Americanon 05-06-2024 GFR/1.73 sq M.predicted among non-blacks MDRD (S/P/Bld) [Vol rate/Area] Estimated glomerular filtration rate (GFR) non- >=60 mL/min/1.73m 2 [facility] - Chemistry and C hemistry - challengeon 05-06-2024 Calcium [Mass/Vol] 8.9 mg/dL 8.5-10.1 [facility] Chloride [Moles/Vol] 101 mmol/L 98-107 [facility] CO2 [Moles/Vol] 24.2 mmol/L 21.0-32.0 [facility] Creatinine [Mass/Vol] 0.62 mg/dL 0.55-1.02 [facility] GFR/1.73 sq M.predicted MDRD (S/P/Bld) [Vol rate/Area] mL/min/{1.73_m2} >=60 mL/min/1.73m 2 [facility] Glucose [Mass/Vol] 98 mg/dL 74-106 [facility] Potassium [Moles/Vol] 3.3 mmol/L Low 3.5-5.1 [facility] Sodium [Moles/Vol] 138 mmol/L 136-145 [facility] Urea nitrogen [Mass/Vol] mg/dL Low 7.0-18.0 [facility] Urea nitrogen/Creatinine [Mass ratio] 1.6 mg/mg [facility] Serum or plasma anion gap de terminationon 05-06-2024 Anion gap [Moles/Vol] Serum or plasma anion gap determination [facility] Appearance of UrineOrdered B y: Maureen Gilmore on 04-29-2024 Appearance (U) Urine appearance Abnormal Clear [facility] Bacteria [Presence] in Urine by AutomatedOrdered By: Maureen Gilmore on 04-29-2024 Bacteria Auto Ql (U) Bacteria [Presence] in Urine by Automated High None Seen [facility] Bilirubin Test strip Ql (U)O rdered By: Maureen Gilmore on 04-29-2024 Bilirubin Ql (U) Bilirubin.total [Presence] in Urine by Test strip Negative [facility] Color Auto (U)Ordered By: Thanh Gilmore on 04-29-2024 Color (U) Color of Urine by Auto Yellow [facility] Dipstick and Microscopicon 1 06-30-2023 Appearance (U) Cloudy Critically abnormal Clear [facility] Comment on above: Order Comment: Name Collection Type:: Voided Performed By: #### C MP, CBC, MG #### [facility] [address] [id number] [place] Bacteria,Urine 4+ High None Seen [facility] Comment on above: Order Comment: Name Collection Type:: Voided Performed By: #### C MP, CBC, MG #### [facility] [address] [id number] [place] Bilirubin,Urine Negative Normal Negative [facility] Comment on above: Order Comment: Name Collection Type:: Voided Performed By: #### C MP, CBC, MG #### [address] Color (U) Light-Yellow Normal Yellow [facility] Comment on above: Order Comment: Name Collection Type:: Voided Performed By: #### C MP, CBC, MG #### [address] Glucose Ql (U) Normal Normal Normal [facility] Comment on above: Order Comment: Name Collection Type:: Voided Performed By: #### C MP, CBC, MG #### [address] Hyaline Casts,Urine 0 [LPF] Normal 0-8 [facility] Comment on above: Order Comment: Name Collection Type:: Voided Performed By: #### C MP, CBC, MG #### [address] Ketones Ql (U) Negative Normal Negative [facility] Comment on above: Order Comment: Name Collection Type:: Voided Performed By: #### C MP, CBC, MG #### [address] Leukocyte esterase Test strip Ql (U) 4+ High Negative [facility] Comment on above: Order Comment: Name Collection Type:: Voided Performed By: #### C MP, CBC, MG #### [place] [address] [place] Mucus,Urine Rare Normal [facility] Comment on above: Order Comment: Name Collection Type:: Voided Result Comment: PERF ORMED BY: [place] [address] PATHOLOGIST [employer] RICHARD FAIR M.D. Performed By: #### C MP, CBC, MG #### [address] Nitrite,Urine Negative Normal Negative [facility] Comment on above: Order Comment: Name Collection Type:: Voided Performed By: #### C MP, CBC, MG #### [address] Occult Blood,Urine Negative Normal Negative [facility] Comment on above: Order Comment: Name Collection Type:: Voided Result Comment: PERF ORMED BY: [place] [address] PATHOLOGIST [employer] RICHARD FAIR M.D. Performed By: #### C MP, CBC, MG #### [address] pH (U) 5.5 [pH] Normal 5.0-9.0 [facility] Comment on above: Order Comment: Name Collection Type:: Voided Performed By: #### C MP, CBC, MG #### [address] Protein,Urine Negative Normal Negative [facility] Comment on above: Order Comment: Name Collection Type:: Voided Performed By: #### C MP, CBC, MG #### [address] RBC,Urine 3 [HPF] Normal 0-4 [facility] Comment on above: Order Comment: Name Collection Type:: Voided Performed By: #### C MP, CBC, MG #### [place] [address] [place] Specificy Linch,Urine 1.011 Normal 1.001-1.030 [facility] Comment on above: Order Comment: Name Collection Type:: Voided Performed By: #### C MP, CBC, MG #### [place] [address] [place] Squamous Epithelial Cell,Urine 3 [HPF] High 0-2 [facility] Comment on above: Order Comment: Name Collection Type:: Voided Performed By: #### C MP, CBC, MG #### [address] Urobilinogen,Urine Normal Normal Normal [facility] Comment on above: Order Comment: Name Collection Type:: Voided Performed By: #### C MP, CBC, MG #### [facility] [address] WBC CLUMP, Urine Many High None Seen [facility] Comment on above: Order Comment: Name Collection Type:: Voided Performed By: #### C MP, CBC, MG #### [facility] [address] [place] [address] [place] WBC,Urine 50 [HPF] High 0-4 [facility] Comment on above: Order Comment: Name Collection Type:: Voided Performed By: #### C MP, CBC, MG #### [facility] [address] Epithelial cells.squamous [# /area] in Urine sediment by Automated countOrdered By: Maureen Gilmore on 04-29-2024 Epithelial cells.squamous Auto (Urine sed) [#/Area] Epithelial cells.squamous [#/area] in Urine sediment by Automated count High 0-2 [facility] Erythrocytes [#/area] in Uri ne sediment by Automated countOrdered By: Maureen Gilmore on 04-29-2024 RBC Auto (Urine sed) [#/Area] Erythrocytes [#/area] in Urine sediment by Automated count 0-4 [facility] Glucose [Mass/volume] in Uri ne by Test stripOrdered By: Maureen Gilmore on 04-29-2024 Glucose Test strip (U) [Mass/Vol] Glucose [Mass/volume] in Urine by Test strip Normal [facility] Hemoglobin Test strip Ql (U) Ordered By: aMureen Gilmore on 04-29-2024 Hemoglobin Ql (U) Hemoglobin [Presence] in Urine by Test strip Negative [facility] Hyaline casts [#/area] in Ur ine sediment by Automated countOrdered By: Maureen Gilmore on 04-29-2024 Hyaline casts Auto (Urine sed) [#/Area] Hyaline casts [#/area] in Urine sediment by Automated count 0-8 [facility] Ketones Test strip Ql (U)Ord ered By: Maureen Gilmore on 04-29-2024 Ketones Ql (U) Ketones [Presence] in Urine by Test strip Negative [facility] Leukocyte clumps [Presence] in Urine by AutomatedOrdered By: Maureen Gilmore on 04-29-2024 Leukocyte clumps Auto Ql (U) Leukocyte clumps [Presence] in Urine by Automated High None Seen [facility] Leukocyte esterase [Presence ] in Urine by Test stripOrdered By: Maureen Gilmore on 04-29-2024 Leukocyte esterase Test strip Ql (U) Leukocyte esterase [Presence] in Urine by Test strip High Negative [facility] Leukocytes [#/area] in Urine sediment by Automated countOrdered By: Maureen Gilmore on 04-29-2024 WBC Auto (Urine sed) [#/Area] Leukocytes [#/area] in Urine sediment by Automated count High 0-4 [facility] Mucus [Presence] in Urine by AutomatedOrdered By: Maureen Gilmore on 04-29-2024 Mucus Auto Ql (U) Mucus [Presence] in Urine by Automated [facility] Nitrite Test strip Ql (U)Ord ered By: Maureen Gilmore on 04-29-2024 Nitrite Ql (U) Nitrite [Presence] in Urine by Test strip Negative [facility] Protein Test strip (U) [Mass /Vol]Ordered By: Maureen Gilmore on 04-29-2024 Protein (U) [Mass/Vol] Protein [Mass/volume] in Urine by Test strip Negative [facility] Specific gravity Test strip (U) [Rel density]Ordered By: Maureen Gilmore on 04-29-2024 Specific gravity (U) [Rel density] Specific gravity of Urine by Test strip 1.001-1.030 [facility] Urine Cultureon 04-29-2024 Bacteria identified Cx Nom (U) ORGANISM: Klebsiella pneumoniae (O:KLEPNE) [place] Count >100,000 Aerobic LUBNA Charge (NMIC56) ----- [...] RESISTANT TO ALL B-LACTAM DRUGS. PERFORMED BY: [place] [address] PATHOLOGIST [employer] T[employer] RICHARD FAIR M.D. Normal [facility] Comment on above: Performed By: #### C MP, CBC, MG #### [address] Urine cultureOrdered By: Essence Gilmore on 04-29-2024 Bacteria identified Cx Nom (U) Abnormal [facility] Urobilinogen Test strip (U) [Mass/Vol]Ordered By: Maureen Gilmore on 04-29-2024 Urobilinogen (U) [Mass/Vol] Urobilinogen [Mass/volume] in Urine by Test strip Normal [facility] pH Test strip (U)Ordered By: Maureen Gilmore on 04-29-2024 pH (U) pH of Urine by Test strip 5.0-9.0 [facility] ECG 12 lead (Clinic Performe d)on 04-07-2024 Sinus tachycardia [facility] Work Phone: Activated partial thrombopla stin time (aPTT) in platelet poor plasma by coagulation aon 04-01-2024 aPTT Coag (PPP) [Time] Activated partial thromboplastin time (aPTT) in platelet poor plasma by coagulation a 22.3-36.2 [facility] Basophils Auto (Bld) [#/Vol] on 04-01-2024 Basophils (Bld) [#/Vol] Automated basophil count 0.0-0.1 [facility] Basophils/100 WBC Auto (Bld) on 04-01-2024 Basophils/100 WBC (Bld) Automated basophil % 0.2-2.0 [facility] Eosinophils/100 WBC Auto (Bl d)on 04-01-2024 Eosinophils/100 WBC (Bld) Automated eosinophil % 0.9-7.0 [facility] Erythrocyte distribution wid th Auto (RBC) [Ratio]on 04-01-2024 Erythrocyte distribution width (RBC) [Ratio] Erythrocyte distribution width [Ratio] by Automated count High 11.0-15.0 [facility] Estimated glomerular filtrat ion rate (GFR) non- Americanon 04-01-2024 GFR/1.73 sq M.predicted among non-blacks MDRD (S/P/Bld) [Vol rate/Area] Estimated glomerular filtration rate (GFR) non- >=60 mL/min/1.73m 2 [facility] Hematocrit Auto (Bld) [Volum e fraction]on 04-01-2024 Hematocrit (Bld) [Volume fraction] Hematocrit [Volume Fraction] of Blood by Automated count 36.0-48.0 [facility] Hemoglobin [Mass/volume] in Bloodon 04-01-2024 Hemoglobin (Bld) [Mass/Vol] Hemoglobin [Mass/volume] in Blood 12.0-16.0 [facility] INR in Platelet poor plasma by Coagulation assayon 04-01-2024 INR Coag (PPP) [Relative time] INR in Platelet poor plasma by Coagulation assay [facility] Comment on above: DESIRED INR:2.0-3.0 CONDITIONS NOT LISTED BELOW2.5-3.5 FOR PROSTHETIC HEART VALVE REPLACEMENT2.5-3.5 RECURRENT THROMBOSIS Laboratory - Chemistry and C hemistry - challengeon 04-01-2024 Calcium [Mass/Vol] 8.6 mg/dL 8.5-10.1 [facility] Chloride [Moles/Vol] 94 mmol/L Low 98-107 [facility] CO2 [Moles/Vol] 23.7 mmol/L 21.0-32.0 [facility] Creatinine [Mass/Vol] 0.71 mg/dL 0.55-1.02 [facility] GFR/1.73 sq M.predicted MDRD (S/P/Bld) [Vol rate/Area] mL/min/{1.73_m2} >=60 mL/min/1.73m 2 [facility] Glucose [Mass/Vol] 74 mg/dL 74-106 [facility] Potassium [Moles/Vol] 5.0 mmol/L 3.5-5.1 [facility] Sodium [Moles/Vol] 129 mmol/L Low 136-145 [facility] Urea nitrogen [Mass/Vol] 7.0 mg/dL 7.0-18.0 [facility] Urea nitrogen/Creatinine [Mass ratio] 9.9 mg/mg [facility] Laboratory - Hematology and Cell countson 04-01-2024 Immature granulocytes/100 WBC (Bld) 0.0 % 0.0-0.5 [facility] Leukocytes [#/volume] correc patty for nucleated erythrocytes in Blood by Automated counon 04-01-2024 WBC corrected for nucl RBC Auto (Bld) [#/Vol] Leukocytes [#/volume] corrected for nucleated erythrocytes in Blood by Automated coun 4.0-11.0 [facility] Lymphocytes Auto (Bld) [#/Vo l]on 04-01-2024 Lymphocytes (Bld) [#/Vol] Lymphocytes [#/volume] in Blood by Automated count 1.2-3.8 [facility] Lymphocytes/100 WBC Auto (Bl d)on 04-01-2024 Lymphocytes/100 WBC (Bld) Lymphocytes/100 leukocytes in Blood by Automated count 20.5-60.0 [facility] MCH Auto (RBC) [Entitic mass ]on 04-01-2024 MCH (RBC) [Entitic mass] MCH [Entitic mass] by Automated count 26.7-34.0 [facility] MCHC Auto (RBC) [Mass/Vol]on 04-01-2024 MCHC (RBC) [Mass/Vol] MCHC [Mass/volume] by Automated count 29.9-35.2 [facility] MCV Auto (RBC) [Entitic vol] on 04-01-2024 MCV (RBC) [Entitic vol] MCV [Entitic volume] by Automated count 81.0-99.0 [facility] Monocytes Auto (Bld) [#/Vol] on 04-01-2024 Monocytes (Bld) [#/Vol] Automated blood monocyte count 0.3-0.8 [facility] Monocytes/100 WBC Auto (Bld) on 04-01-2024 Monocytes/100 WBC (Bld) Automated monocyte % 1.7-12.0 [facility] Neutrophils Auto (Bld) [#/Vo l]on 04-01-2024 Neutrophils (Bld) [#/Vol] Neutrophils [#/volume] in Blood by Automated count 1.4-6.5 [facility] Neutrophils/100 WBC Auto (Bl d)on 04-01-2024 Neutrophils/100 WBC (Bld) Automated neutrophil % 43.0-75.0 [facility] No Panel InformationOrdered By: Ana Lilia Moreno on 04-01-2024 MRSA Screening Culture [facility] No Panel Informationon 04-01 Eosinophils # (Auto) 0.1 10 3/uL 0.0-0.7 [facility] Immature Granulocyte # (Auto) 0.00 10 3/uL 0.00-0.03 [facility] Platelet mean volume Auto (B ld) [Entitic vol]on 04-01-2024 Platelet mean volume (Bld) [Entitic vol] Platelet mean volume [Entitic volume] in Blood by Automated count Low 9.5-13.5 [facility] Platelets Auto (Bld) [#/Vol] on 04-01-2024 Platelets (Bld) [#/Vol] Platelets [#/volume] in Blood by Automated count 150-450 [facility] Prothrombin time (PT)on PT Coag (PPP) [Time] Prothrombin time (PT) 9.0-11.6 [facility] RBC Auto (Bld) [#/Vol]on RBC (Bld) [#/Vol] Erythrocytes [#/volume] in Blood by Automated count 4.20-5.40 [facility] Serum or plasma anion gap de terminationon 04-01-2024 Anion gap [Moles/Vol] Serum or plasma anion gap determination [facility] Basophils Auto (Bld) [#/Vol] on 01-20-2024 Basophils (Bld) [#/Vol] 0.1 10 3/uL 0.0-0.1 [facility] Basophils (Bld) [#/Vol] Automated basophil count 0.0-0.1 [facility] Basophils/100 WBC Auto (Bld) on 01-20-2024 Basophils/100 WBC (Bld) 0.7 % 0.2-2.0 [facility] Basophils/100 WBC (Bld) Automated basophil % 0.2-2.0 [facility] Eosinophils/100 WBC Auto (Bl d)on 01-20-2024 Eosinophils/100 WBC (Bld) 2.7 % 0.9-7.0 [facility] Eosinophils/100 WBC (Bld) Automated eosinophil % 0.9-7.0 [facility] Erythrocyte distribution wid th Auto (RBC) [Ratio]on 01-20-2024 Erythrocyte distribution width (RBC) [Ratio] 16.8 % High 11.0-15.0 [facility] Erythrocyte distribution width (RBC) [Ratio] Erythrocyte distribution width [Ratio] by Automated count High 11.0-15.0 [facility] Estimated glomerular filtrat ion rate (GFR) non- Americanon 01-20-2024 GFR/1.73 sq M.predicted among non-blacks MDRD (S/P/Bld) [Vol rate/Area] mL/min/{1.73_m2} >=60 [facility] GFR/1.73 sq M.predicted among non-blacks MDRD (S/P/Bld) [Vol rate/Area] Estimated glomerular filtration rate (GFR) non- >=60 [facility] Globulin Calc (S) [Mass/Vol] on 01-20-2024 Globulin (S) [Mass/Vol] 4.8 g/dL [facility] Globulin (S) [Mass/Vol] Serum globulin measurement by calculation (mass/volume) [facility] Hematocrit Auto (Bld) [Volum e fraction]on 01-20-2024 Hematocrit (Bld) [Volume fraction] 34.3 % Low 36.0-48.0 [facility] Hematocrit (Bld) [Volume fraction] Hematocrit [Volume Fraction] of Blood by Automated count Low 36.0-48.0 [facility] Hemoglobin [Mass/volume] in Bloodon 01-20-2024 Hemoglobin (Bld) [Mass/Vol] 10.9 g/dL Low 12.0-16.0 [facility] Hemoglobin (Bld) [Mass/Vol] Hemoglobin [Mass/volume] in Blood Low 12.0-16.0 [facility] Laboratory - Chemistry and C hemistry - challengeon 01-20-2024 Albumin [Mass/Vol] 2.9 g/dL Low 3.4-5.0 [facility] ALP [Catalytic activity/Vol] 205 U/L High 46-116 [facility] ALT [Catalytic activity/Vol] 24 U/L 14-59 [facility] AST [Catalytic activity/Vol] 48 U/L High 15-37 [facility] Bilirubin [Mass/Vol] 0.3 mg/dL 0.2-1.0 [facility] Calcium [Mass/Vol] 9.3 mg/dL 8.5-10.1 [facility] Chloride [Moles/Vol] 97 mmol/L Low 98-107 [facility] CO2 [Moles/Vol] 23.4 mmol/L 21.0-32.0 [facility] Creatinine [Mass/Vol] 0.83 mg/dL 0.55-1.02 [facility] GFR/1.73 sq M.predicted MDRD (S/P/Bld) [Vol rate/Area] mL/min/{1.73_m2} >=60 [facility] Glucose [Mass/Vol] 92 mg/dL 74-106 [facility] Magnesium [Mass/Vol] 1.9 mg/dL 1.8-2.4 [facility] Potassium [Moles/Vol] 3.7 mmol/L 3.5-5.1 [facility] Protein [Mass/Vol] 7.7 g/dL 6.4-8.2 [facility] Sodium [Moles/Vol] 135 mmol/L Low 136-145 [facility] Urea nitrogen [Mass/Vol] 4.0 mg/dL Low 7.0-18.0 [facility] Urea nitrogen/Creatinine [Mass ratio] 4.8 mg/mg [facility] Laboratory - Hematology and Cell countson 01-20-2024 Immature granulocytes/100 WBC (Bld) 0.5 % 0.0-0.5 [facility] Leukocytes [#/volume] correc patty for nucleated erythrocytes in Blood by Automated counon 01-20-2024 WBC corrected for nucl RBC Auto (Bld) [#/Vol] 8.6 10 3/uL 4.0-11.0 [facility] WBC corrected for nucl RBC Auto (Bld) [#/Vol] Leukocytes [#/volume] corrected for nucleated erythrocytes in Blood by Automated coun 4.0-11.0 [facility] Lymphocytes Auto (Bld) [#/Vo l]on 01-20-2024 Lymphocytes (Bld) [#/Vol] 2.4 10 3/uL 1.2-3.8 [facility] Lymphocytes (Bld) [#/Vol] Lymphocytes [#/volume] in Blood by Automated count 1.2-3.8 [facility] Lymphocytes/100 WBC Auto (Bl d)on 01-20-2024 Lymphocytes/100 WBC (Bld) 28.2 % 20.5-60.0 [facility] Lymphocytes/100 WBC (Bld) Lymphocytes/100 leukocytes in Blood by Automated count 20.5-60.0 [facility] MCH Auto (RBC) [Entitic mass ]on 01-20-2024 MCH (RBC) [Entitic mass] 29.4 pg 26.7-34.0 [facility] MCH (RBC) [Entitic mass] MCH [Entitic mass] by Automated count 26.7-34.0 [facility] MCHC Auto (RBC) [Mass/Vol]on 01-20-2024 MCHC (RBC) [Mass/Vol] 31.8 g/dL 29.9-35.2 [facility] MCHC (RBC) [Mass/Vol] MCHC [Mass/volume] by Automated count 29.9-35.2 [facility] MCV Auto (RBC) [Entitic vol] on 01-20-2024 MCV (RBC) [Entitic vol] 92.5 fL 81.0-99.0 [facility] MCV (RBC) [Entitic vol] MCV [Entitic volume] by Automated count 81.0-99.0 [facility] Monocytes Auto (Bld) [#/Vol] on 01-20-2024 Monocytes (Bld) [#/Vol] 0.7 10 3/uL 0.3-0.8 [facility] Monocytes (Bld) [#/Vol] Automated blood monocyte count 0.3-0.8 [facility] Monocytes/100 WBC Auto (Bld) on 01-20-2024 Monocytes/100 WBC (Bld) 7.8 % 1.7-12.0 [facility] Monocytes/100 WBC (Bld) Automated monocyte % 1.7-12.0 [facility] Neutrophils Auto (Bld) [#/Vo l]on 01-20-2024 Neutrophils (Bld) [#/Vol] 5.2 10 3/uL 1.4-6.5 [facility] Neutrophils (Bld) [#/Vol] Neutrophils [#/volume] in Blood by Automated count 1.4-6.5 [facility] Neutrophils/100 WBC Auto (Bl d)on 01-20-2024 Neutrophils/100 WBC (Bld) 60.1 % 43.0-75.0 [facility] Neutrophils/100 WBC (Bld) Automated neutrophil % 43.0-75.0 [facility] No Panel Informationon 01-19 Eosinophils # (Auto) 0.2 10 3/uL 0.0-0.7 [facility] Immature Granulocyte # (Auto) 0.04 10 3/uL High 0.00-0.03 [facility] Platelet mean volume Auto (B ld) [Entitic vol]on 01-20-2024 Platelet mean volume (Bld) [Entitic vol] 10.0 fL 9.5-13.5 [facility] Platelet mean volume (Bld) [Entitic vol] Platelet mean volume [Entitic volume] in Blood by Automated count 9.5-13.5 [facility] Platelets Auto (Bld) [#/Vol] on 01-20-2024 Platelets (Bld) [#/Vol] 456 10 3/uL High 150-450 [facility] Platelets (Bld) [#/Vol] Platelets [#/volume] in Blood by Automated count High 150-450 [facility] RBC Auto (Bld) [#/Vol]on RBC (Bld) [#/Vol] 3.71 10 6/uL Low 4.20-5.40 [facility] RBC (Bld) [#/Vol] Erythrocytes [#/volume] in Blood by Automated count Low 4.20-5.40 [facility] Serum or plasma albumin/glob ulin mass ratioon 01-20-2024 Albumin/Globulin [Mass ratio] 0.6 {ratio} [facility] Albumin/Globulin [Mass ratio] Serum or plasma albumin/globulin mass ratio [facility] Serum or plasma anion gap de terminationon 01-20-2024 Anion gap [Moles/Vol] 18.3 mmol/L [facility] Anion gap [Moles/Vol] Serum or plasma anion gap determination [facility] Basophils Auto (Bld) [#/Vol] on 01-12-2024 Basophils (Bld) [#/Vol] 0.1 10 3/uL 0.0-0.1 [facility] Basophils (Bld) [#/Vol] Automated basophil count 0.0-0.1 [facility] Basophils/100 WBC Auto (Bld) on 01-12-2024 Basophils/100 WBC (Bld) 0.7 % 0.2-2.0 [facility] Basophils/100 WBC (Bld) Automated basophil % 0.2-2.0 [facility] Eosinophils/100 WBC Auto (Bl d)on 01-12-2024 Eosinophils/100 WBC (Bld) 2.3 % 0.9-7.0 [facility] Eosinophils/100 WBC (Bld) Automated eosinophil % 0.9-7.0 [facility] Erythrocyte distribution wid th Auto (RBC) [Ratio]on 01-12-2024 Erythrocyte distribution width (RBC) [Ratio] 18.2 % High 11.0-15.0 [facility] Erythrocyte distribution width (RBC) [Ratio] Erythrocyte distribution width [Ratio] by Automated count High 11.0-15.0 [facility] Estimated glomerular filtrat ion rate (GFR) non- Americanon 01-12-2024 GFR/1.73 sq M.predicted among non-blacks MDRD (S/P/Bld) [Vol rate/Area] mL/min/{1.73_m2} >=60 [facility] GFR/1.73 sq M.predicted among non-blacks MDRD (S/P/Bld) [Vol rate/Area] Estimated glomerular filtration rate (GFR) non- >=60 [facility] Globulin Calc (S) [Mass/Vol] on 01-12-2024 Globulin (S) [Mass/Vol] 3.2 g/dL [facility] Globulin (S) [Mass/Vol] Serum globulin measurement by calculation (mass/volume) [facility] Hematocrit Auto (Bld) [Volum e fraction]on 01-12-2024 Hematocrit (Bld) [Volume fraction] 29.7 % Low 36.0-48.0 [facility] Hematocrit (Bld) [Volume fraction] Hematocrit [Volume Fraction] of Blood by Automated count Low 36.0-48.0 [facility] Hemoglobin [Mass/volume] in Bloodon 01-12-2024 Hemoglobin (Bld) [Mass/Vol] 9.5 g/dL Low 12.0-16.0 [facility] Hemoglobin (Bld) [Mass/Vol] Hemoglobin [Mass/volume] in Blood Low 12.0-16.0 [facility] Laboratory - Chemistry and C hemistry - challengeon 01-12-2024 Albumin [Mass/Vol] 2.3 g/dL Low 3.4-5.0 [facility] ALP [Catalytic activity/Vol] 142 U/L High 46-116 [facility] ALT [Catalytic activity/Vol] 19 U/L 14-59 [facility] AST [Catalytic activity/Vol] 30 U/L 15-37 [facility] Bilirubin [Mass/Vol] 0.4 mg/dL 0.2-1.0 [facility] Calcium [Mass/Vol] 9.0 mg/dL 8.5-10.1 [facility] Chloride [Moles/Vol] 99 mmol/L 98-107 [facility] CO2 [Moles/Vol] 29.5 mmol/L 21.0-32.0 [facility] Creatinine [Mass/Vol] 0.56 mg/dL 0.55-1.02 [facility] GFR/1.73 sq M.predicted MDRD (S/P/Bld) [Vol rate/Area] mL/min/{1.73_m2} >=60 [facility] Glucose [Mass/Vol] 95 mg/dL 74-106 [facility] Potassium [Moles/Vol] 3.5 mmol/L 3.5-5.1 [facility] Protein [Mass/Vol] 5.5 g/dL Low 6.4-8.2 [facility] Sodium [Moles/Vol] 134 mmol/L Low 136-145 [facility] Urea nitrogen [Mass/Vol] 10.0 mg/dL 7.0-18.0 [facility] Urea nitrogen/Creatinine [Mass ratio] 17.9 mg/mg [facility] Laboratory - Hematology and Cell countson 01-12-2024 Immature granulocytes/100 WBC (Bld) 0.5 % 0.0-0.5 [facility] Leukocytes [#/volume] correc patty for nucleated erythrocytes in Blood by Automated counon 01-12-2024 WBC corrected for nucl RBC Auto (Bld) [#/Vol] 8.6 10 3/uL 4.0-11.0 [facility] WBC corrected for nucl RBC Auto (Bld) [#/Vol] Leukocytes [#/volume] corrected for nucleated erythrocytes in Blood by Automated coun 4.0-11.0 [facility] Lymphocytes Auto (Bld) [#/Vo l]on 01-12-2024 Lymphocytes (Bld) [#/Vol] 1.8 10 3/uL 1.2-3.8 [facility] Lymphocytes (Bld) [#/Vol] Lymphocytes [#/volume] in Blood by Automated count 1.2-3.8 [facility] Lymphocytes/100 WBC Auto (Bl d)on 01-12-2024 Lymphocytes/100 WBC (Bld) 20.7 % 20.5-60.0 [facility] Lymphocytes/100 WBC (Bld) Lymphocytes/100 leukocytes in Blood by Automated count 20.5-60.0 [facility] MCH Auto (RBC) [Entitic mass ]on 01-12-2024 MCH (RBC) [Entitic mass] 30.2 pg 26.7-34.0 [facility] MCH (RBC) [Entitic mass] MCH [Entitic mass] by Automated count 26.7-34.0 [facility] MCHC Auto (RBC) [Mass/Vol]on 01-12-2024 MCHC (RBC) [Mass/Vol] 32.0 g/dL 29.9-35.2 [facility] MCHC (RBC) [Mass/Vol] MCHC [Mass/volume] by Automated count 29.9-35.2 [facility] MCV Auto (RBC) [Entitic vol] on 01-12-2024 MCV (RBC) [Entitic vol] 94.3 fL 81.0-99.0 [facility] MCV (RBC) [Entitic vol] MCV [Entitic volume] by Automated count 81.0-99.0 [facility] Monocytes Auto (Bld) [#/Vol] on 01-12-2024 Monocytes (Bld) [#/Vol] 1.0 10 3/uL High 0.3-0.8 [facility] Monocytes (Bld) [#/Vol] Automated blood monocyte count High 0.3-0.8 [facility] Monocytes/100 WBC Auto (Bld) on 01-12-2024 Monocytes/100 WBC (Bld) 11.3 % 1.7-12.0 [facility] Monocytes/100 WBC (Bld) Automated monocyte % 1.7-12.0 [facility] Neutrophils Auto (Bld) [#/Vo l]on 01-12-2024 Neutrophils (Bld) [#/Vol] 5.6 10 3/uL 1.4-6.5 [facility] Neutrophils (Bld) [#/Vol] Neutrophils [#/volume] in Blood by Automated count 1.4-6.5 [facility] Neutrophils/100 WBC Auto (Bl d)on 01-12-2024 Neutrophils/100 WBC (Bld) 64.5 % 43.0-75.0 [facility] Neutrophils/100 WBC (Bld) Automated neutrophil % 43.0-75.0 [facility] Nicotineon 01-12-2024 Cotinine <[address] [facility] Comment on above: Performed By: #### P TT, PT #### [facility] [address] [place] [address] [employer] Operator: Tato Ibarra MD Nicotine <[address] [facility] [...] developed and its performance characteristics determined by [employer]. It has not been cleared or approved by the [place] Food and Drug Administration. This test was performed in a CLIA certified laboratory and is intended for clinical purposes. Performed By: [facility] [address] [place] [id number] Tractor Engine Mechanic: José Jackson MD, PhD CLIA Number: [id number] Performed By: #### P TT, PT #### [facility] [address] [place] [address] [id number] [employer] Operator: Tato Ibarra MD No Panel Informationon 01-11 Eosinophils # (Auto) 0.2 10 3/uL 0.0-0.7 [facility] Immature Granulocyte # (Auto) 0.04 10 3/uL High 0.00-0.03 [facility] Platelet mean volume Auto (B ld) [Entitic vol]on 01-12-2024 Platelet mean volume (Bld) [Entitic vol] 9.9 fL 9.5-13.5 [facility] Platelet mean volume (Bld) [Entitic vol] Platelet mean volume [Entitic volume] in Blood by Automated count 9.5-13.5 [facility] Platelets Auto (Bld) [#/Vol] on 01-12-2024 Platelets (Bld) [#/Vol] 408 10 3/uL 150-450 [facility] Platelets (Bld) [#/Vol] Platelets [#/volume] in Blood by Automated count 150-450 [facility] RBC Auto (Bld) [#/Vol]on RBC (Bld) [#/Vol] 3.15 10 6/uL Low 4.20-5.40 [facility] RBC (Bld) [#/Vol] Erythrocytes [#/volume] in Blood by Automated count Low 4.20-5.40 [facility] Serum or plasma albumin/glob ulin mass ratioon 01-12-2024 Albumin/Globulin [Mass ratio] 0.7 {ratio} [facility] Albumin/Globulin [Mass ratio] Serum or plasma albumin/globulin mass ratio [facility] Serum or plasma anion gap de terminationon 01-12-2024 Anion gap [Moles/Vol] 9.0 mmol/L [facility] Anion gap [Moles/Vol] Serum or plasma anion gap determination [facility] Hgb/Hcton 01-11-2024 Hematocrit (Bld) [Volume fraction] 27.8 % Low 36.3-47.[address] [facility] Comment on above: Performed By: #### O SMO, LD, MG, JESUS, TSHX, LIVP, B12FOL, LACTIC, FT4, BMP #### [facility] [employer] [address] [place] [address] [employer]izer Mill Operator: Tato Ibarra MD Hemoglobin (Bld) [Mass/Vol] 8.7 g/dL Low 11.9-15.[address] [facility] Comment on above: Performed By: #### O SMO, LD, MG, JESUS, TSHX, LIVP, B12FOL, LACTIC, FT4, BMP #### [address] [address] [employer] Operator: Tato Ibarra MD Basic Metab w/rfx MGon 01-09 Anion gap [Moles/Vol] 9 mmol/L Normal 9-[address] [facility] Comment on above: Performed By: #### P TT, PT #### [address] [address] [employer] Operator: Tato Ibarra MD Calcium [Mass/Vol] 8.0 mg/dL Low 8.6-10.[address] [facility] Comment on above: Performed By: #### P TT, PT #### [address] [address] [employer] Operator: Tato Ibarra MD Chloride [Moles/Vol] 101 mmol/L Normal 98-[address] [facility] Comment on above: Performed By: #### P TT, PT #### [address] [address] [employer] Operator: Tato Ibarra MD CO2 [Moles/Vol] 27 mmol/L Normal 20-[address] [facility] Comment on above: Performed By: #### P TT, PT #### [facility] [employer] [address] [place] [address] [employer] Operator: Tato Ibarra MD Creatinine [Mass/Vol] 0.4 mg/dL Low 0.50-0.[address] [facility] Comment on above: Performed By: #### P TT, PT #### [address] [address] [employer] Operator: Tato Ibarra MD GFR/1.73 sq M.predicted among non-blacks MDRD (S/P/Bld) [Vol rate/Area] mL/min/{1.73_m2} Normal >[address] [facility] Comment [...] Performed By: #### P TT, PT #### [address] [address] [employer] Operator: Tato Ibarra MD Glucose [Mass/Vol] 87 mg/dL Normal 74-[address] [facility] Comment on above: Performed By: #### P TT, PT #### [facility] [address] [address] [employer] Operator: Tato Ibarra MD Potassium [Moles/Vol] 3.2 mmol/L Low 3.7-5.[address] [facility] Comment on above: Result Comment: SPEC IMEN SLIGHTLY HEMOLYZED, RESULTS MAY BE ADVERSELY AFFECTED. Performed By: #### P TT, PT #### [address] [address] [employer] Operator: Tato Ibarra MD Sodium [Moles/Vol] 137 mmol/L Normal 136-[address] [facility] Comment on above: Performed By: #### P TT, PT #### [facility] [address] [place] [address] [employer] Operator: Tato Ibarra MD Urea nitrogen [Mass/Vol] 4 mg/dL Low 6-[address] [facility] Comment on above: Performed By: #### P TT, PT #### [address] [address] [employer] Operator: Tato Ibarra MD CBC with Diffon 01-10-2024 Platelet, Fluoresc. 190 k/uL Normal 138-[address] [facility] Comment on above: Performed By: #### P TT, PT #### [place] [address] [employer] Operator: Tato Ibarra MD PLT, Immature Fract. 4.6 % Normal 1.1-10.[address] [facility] Comment on above: Performed By: #### P TT, PT #### [place] [address] [employer] Operator: Tato Ibarra MD Abs. Basophil 0.03 k/uL Normal 0.00-0.[address] [facility] Comment on above: Performed By: #### P TT, PT #### [place] [address] [employer] Operator: Tato Ibarra MD Abs.Imm.Granulocyte 0.04 k/uL Normal 0.00-0.[address] [facility] Comment on above: Performed By: #### P TT, PT #### [place] [address] [employer] Operator: Tato Ibarra MD Abs.Neutrophil (Seg) 3.17 k/uL Normal 1.50-8.[address] [facility] Comment on above: Performed By: #### P TT, PT #### [place] [address] [employer] Operator: Tato Ibarra MD Basophils/100 WBC (Bld) 1 % Normal 0-[address] [facility] Comment on above: Performed By: #### P TT, PT #### [place] [address] [employer] Operator: Tato Ibarra MD Eosinophils (Bld) [#/Vol] 0.12 10*3/uL Normal 0.00-0.[address] [facility] Comment on above: Performed By: #### P TT, PT #### [address] [address] [employer] Operator: Tato Ibarra MD Eosinophils/100 WBC (Bld) 2 % Normal 1-[address] [facility] Comment on above: Performed By: #### P TT, PT #### [place] [address] [employer] Operator: Tato Ibarra MD Erythrocyte distribution width (RBC) [Ratio] 18.7 % High 11.8-14.[address] [facility] Comment on above: Performed By: #### P TT, PT #### [place] [address] [employer] Operator: Tato Ibarra MD Hematocrit (Bld) [Volume fraction] 27.1 % Low 36.3-47.[address] [facility] Comment on above: Performed By: #### P TT, PT #### [place] [address] [employer] Operator: Tato Ibarra MD Hemoglobin (Bld) [Mass/Vol] 8.9 g/dL Low 11.9-15.[address] [facility] Comment on above: Performed By: #### P TT, PT #### [place] [address] [employer] Operator: Tato Ibarra MD Immature granulocytes/100 WBC (Bld) 1 % High [address] [facility] Comment on above: Performed By: #### P TT, PT #### [place] [address] [employer] Operator: Tato Ibarra MD Lymphocytes (Bld) [#/Vol] 1.36 10*3/uL Normal 1.10-3.[address] [facility] Comment on above: Performed By: #### P TT, PT #### [address] [address] [employer] Operator: Tato Ibarra MD Lymphocytes/100 WBC (Bld) 24 % Normal 24-[address] [facility] Comment on above: Performed By: #### P TT, PT #### [address] [address] [employer] Operator: Tato Ibarra MD MCH (RBC) [Entitic mass] 29.8 pg Normal 25.2-33.[address] [facility] Comment on above: Performed By: #### P TT, PT #### [address] [address] [employer] Operator: Tato Ibarra MD MCHC (RBC) [Mass/Vol] 32.8 g/dL Normal 28.4-34.[address] [facility] Comment on above: Performed By: #### P TT, PT #### [address] [address] [employer] Operator: Tato Ibarra MD MCV (RBC) [Entitic vol] 90.6 fL Normal 82.6-102.[address] [facility] Comment on above: Performed By: #### P TT, PT #### [address] [address] [employer] Operator: Tato Ibarra MD Monocytes (Bld) [#/Vol] 0.85 10*3/uL Normal 0.10-1.[address] [facility] Comment on above: Performed By: #### P TT, PT #### [address] [address] [employer] Operator: Tato Ibarra MD Monocytes/100 WBC (Bld) 15 % High 3-[address] [facility] Comment on above: Performed By: #### P TT, PT #### [address] [address] [employer] Operator: Tato Ibarra MD Neutrophil (Seg) 57 % Normal 36-65 [facility] Comment on above: Performed By: #### P TT, PT #### [address] [address] [employer] Operator: Tato Ibarra MD NRBC Automated 0.0 per 100 WBC Normal 0.[address] [facility] Comment on above: Performed By: #### P TT, PT #### [address] [address] [employer] Operator: Tato Ibarra MD Platelet Count See Reflexed IPF Result Normal 138-[address] [facility] Comment on above: Performed By: #### P TT, PT #### [address] [address] [employer] Operator: Tato Ibarra MD RBC (Bld) [#/Vol] 2.99 10*6/uL Low 3.95-5.[address] [facility] Comment on above: Performed By: #### P TT, PT #### [address] [address] [employer] Operator: Tato Ibarra MD RBC morphology finding Nom (Bld) ANISOCYTOSIS PRESENT Normal [facility] Comment on above: Performed By: #### P TT, PT #### [address] [address] [employer] Operator: Tato Ibarra MD WBC (Bld) [#/Vol] 5.6 10*3/uL Normal 3.5-11.[address] [facility] Comment on above: Performed By: #### P TT, PT #### [address] [address] [employer] Operator: Tato Ibarra MD Calcium, Ionicon 01-10-2024 Calcium [Moles/Vol] 1.18 mmol/L Normal 1.13-1.[address] [facility] Comment on above: Performed By: #### P TT, PT #### [address] [address] [employer] Operator: Tato Ibarra MD Hgb/Hcton 01-10-2024 Hematocrit (Bld) [Volume fraction] 25.4 % Low 36.3-47.[address] [facility] Comment on above: Performed By: #### P TT, PT #### [address] [phone] [employer] Operator: Tato Ibarra MD Hemoglobin (Bld) [Mass/Vol] 8.1 g/dL Low 11.9-15.[address] [facility] Comment on above: Performed By: #### P TT, PT #### [address] [id number] [employer] Operator: Tato Ibarra MD Magnesiumon 6 Magnesium [Mass/Vol] 1.8 mg/dL Normal 1.6-2.[address] [facility] Comment on above: Performed By: #### P TT, PT #### [address] [phone] [employer] Operator: Tato Ibarra MD Type + Screenon 1 Type + Screen Sample Expiration 01/09/2024,2359 Arm Band Number [id number] ABO/Rh(D) O NEGATIVE Antibody Screen NEGATIVE Unit Number [id number] Blood Component Type Leukocyte Reduced Red Cell Unit Division 00 Status of Unit TRANSFUSED Transfusion Status OK TO TRANSFUSE Crossmatch Result COMPATIBLE Unit Number [id number] Blood Component Type Leukocyte Reduced Red Cell Unit Division 00 Status of Unit REL FROM ALLOC Transfusion Status DO NOT ISSUE FOR TRANSFUSION Crossmatch Result NOT TESTED Normal [facility] Comment on above: Performed By: #### O SMO, LD, MG, JESUS, TSHX, LIVP, B12FOL, LACTIC, FT4, BMP #### [address] [phone] [employer] Operator: Tato Ibarra MD Basic Metab w/rfx MGon 01-08 Anion gap [Moles/Vol] 8 mmol/L Low 9-[address] [facility] Comment on above: Performed By: #### O SMO, LD, MG, JESUS, TSHX, LIVP, B12FOL, LACTIC, FT4, BMP #### [address] [address] [employer] Operator: Tato Ibarra MD Calcium [Mass/Vol] 8.1 mg/dL Low 8.6-10.[address] [facility] Comment on above: Performed By: #### O SMO, LD, MG, JESUS, TSHX, LIVP, B12FOL, LACTIC, FT4, BMP #### [address] [address] [employer] Operator: Tato Ibarra MD Chloride [Moles/Vol] 103 mmol/L Normal 98-[address] [facility] Comment on above: Performed By: #### O SMO, LD, MG, JESUS, TSHX, LIVP, B12FOL, LACTIC, FT4, BMP #### [address] [address] [employer] Operator: Tato Ibarra MD CO2 [Moles/Vol] 27 mmol/L Normal 20-[address] [facility] Comment on above: Performed By: #### O SMO, LD, MG, JESUS, TSHX, LIVP, B12FOL, LACTIC, FT4, BMP #### [facility] [address] [place] [address] [employer] Operator: Tato Ibarra MD Creatinine [Mass/Vol] 0.3 mg/dL Low 0.50-0.[address] [facility] Comment on above: Performed By: #### O SMO, LD, MG, JESUS, TSHX, LIVP, B12FOL, LACTIC, FT4, BMP #### [address] [address] [employer] Operator: Tato Ibarra MD GFR/1.73 sq M.predicted among non-blacks MDRD (S/P/Bld) [Vol rate/Area] mL/min/{1.73_m2} Normal >[address] [facility] Comment [...] TSHX, LIVP, B12FOL, LACTIC, FT4, BMP #### [facility] [employer] [address] [place] [address] [employer] Operator: Tato Ibarra MD Glucose [Mass/Vol] 103 mg/dL High 74-[address] [facility] Comment on above: Performed By: #### O SMO, LD, MG, JESUS, TSHX, LIVP, B12FOL, LACTIC, FT4, BMP #### [facility] [address] [place] [address] [phone] [employer] Operator: Tato Ibarra MD Potassium [Moles/Vol] 3.1 mmol/L Low 3.7-5.[address] [facility] Comment on above: Performed By: #### O SMO, LD, MG, JESUS, TSHX, LIVP, B12FOL, LACTIC, FT4, BMP #### [facility] [address] [place] [address] [employer] Operator: Tato Ibarra MD Sodium [Moles/Vol] 138 mmol/L Normal 136-[address] [facility] Comment on above: Performed By: #### O SMO, LD, MG, JESUS, TSHX, LIVP, B12FOL, LACTIC, FT4, BMP #### [facility] [address] [place] [address] [employer] Operator: Tato Ibarra MD Urea nitrogen [Mass/Vol] 4 mg/dL Low 6-[address] [facility] Comment on above: Performed By: #### O SMO, LD, MG, JESUS, TSHX, LIVP, B12FOL, LACTIC, FT4, BMP #### [facility] [address] [place] [address] [employer] Operator: Tato Ibarra MD CBC with Diffon 01-09-2024 Abs. Basophil 0.03 k/uL Normal 0.00-0.[address] [facility] Comment on above: Performed By: #### O SMO, LD, MG, JESUS, TSHX, LIVP, B12FOL, LACTIC, FT4, BMP #### [facility] [address] [place] [address] [employer] Operator: Tato Ibarra MD Abs.Imm.Granulocyte <0.03 Normal 0.00-0.[address] [facility] Comment on above: Performed By: #### O SMO, LD, MG, JESUS, TSHX, LIVP, B12FOL, LACTIC, FT4, BMP #### [facility] [address] [place] [address] [employer] Operator: Tato Ibarra MD Abs.Neutrophil (Seg) 4.44 k/uL Normal 1.50-8.[address] [facility] Comment on above: Performed By: #### O SMO, LD, MG, JESUS, TSHX, LIVP, B12FOL, LACTIC, FT4, BMP #### [facility] [address] [place] [address] [employer] Operator: Tato Ibarra MD Basophils/100 WBC (Bld) 1 % Normal 0-[address] [facility] Comment on above: Performed By: #### O SMO, LD, MG, JESUS, TSHX, LIVP, B12FOL, LACTIC, FT4, BMP #### [facility] [address] [place] [address] [employer] Operator: Tato Ibarra MD Eosinophils (Bld) [#/Vol] 0.10 10*3/uL Normal 0.00-0.[address] [facility] Comment on above: Performed By: #### O SMO, LD, MG, JESUS, TSHX, LIVP, B12FOL, LACTIC, FT4, BMP #### [facility] [address] [place] [address] [phone] [employer] Operator: Tato Ibarra MD Eosinophils/100 WBC (Bld) 2 % Normal 1-[address] [facility] Comment on above: Performed By: #### O SMO, LD, MG, JESUS, TSHX, LIVP, B12FOL, LACTIC, FT4, BMP #### [place] [address] [employer] Operator: Tato Ibarra MD Erythrocyte distribution width (RBC) [Ratio] 19.9 % High 11.8-14.[address] [facility] Comment on above: Performed By: #### O SMO, LD, MG, JESUS, TSHX, LIVP, B12FOL, LACTIC, FT4, BMP #### [facility] [address] [place] [address] [employer] Operator: Tato Ibarra MD Hematocrit (Bld) [Volume fraction] 24.7 % Low 36.3-47.[address] [facility] Comment on above: Performed By: #### O SMO, LD, MG, JESUS, TSHX, LIVP, B12FOL, LACTIC, FT4, BMP #### [facility] [address] [place] [address] [employer] Operator: Tato Ibarra MD Hemoglobin (Bld) [Mass/Vol] 7.7 g/dL Low 11.9-15.[address] [facility] Comment on above: Performed By: #### O SMO, LD, MG, JESUS, TSHX, LIVP, B12FOL, LACTIC, FT4, BMP #### [facility] [address] [place] [address] [phone] [employer] Operator: Tato Ibarra MD Immature granulocytes/100 WBC (Bld) 0 % Normal [address] [facility] Comment on above: Performed By: #### O SMO, LD, MG, JESUS, TSHX, LIVP, B12FOL, LACTIC, FT4, BMP #### [facility] [address] [place] [address] [employer] Operator: Tato Ibarra MD Lymphocytes (Bld) [#/Vol] 0.91 10*3/uL Low 1.10-3.[address] [facility] Comment on above: Performed By: #### O SMO, LD, MG, JESUS, TSHX, LIVP, B12FOL, LACTIC, FT4, BMP #### [address] [address] [employer] Operator: Tato Ibarra MD Lymphocytes/100 WBC (Bld) 15 % Low 24-[address] [facility] Comment on above: Performed By: #### O SMO, LD, MG, JESUS, TSHX, LIVP, B12FOL, LACTIC, FT4, BMP #### [address] [address] [employer] Operator: Tato Ibarra MD MCH (RBC) [Entitic mass] 29.6 pg Normal 25.2-33.[address] [facility] Comment on above: Performed By: #### O SMO, LD, MG, JESUS, TSHX, LIVP, B12FOL, LACTIC, FT4, BMP #### [facility] [address] [place] [address] [employer] Operator: Tato Ibarra MD MCHC (RBC) [Mass/Vol] 31.2 g/dL Normal 28.4-34.[address] [facility] Comment on above: Performed By: #### O SMO, LD, MG, JESUS, TSHX, LIVP, B12FOL, LACTIC, FT4, BMP #### [facility] [address] [place] [address] [employer] Operator: Tato Ibarra MD MCV (RBC) [Entitic vol] 95.0 fL Normal 82.6-102.[address] [facility] Comment on above: Performed By: #### O SMO, LD, MG, JESUS, TSHX, LIVP, B12FOL, LACTIC, FT4, BMP #### [address] [address] [employer] Operator: Tato Ibarra MD Monocytes (Bld) [#/Vol] 0.60 10*3/uL Normal 0.10-1.[address] [facility] Comment on above: Performed By: #### O SMO, LD, MG, JESUS, TSHX, LIVP, B12FOL, LACTIC, FT4, BMP #### [address] [address] [employer] Operator: Tato Ibarra MD Monocytes/100 WBC (Bld) 10 % Normal 3-[address] [facility] Comment on above: Performed By: #### O SMO, LD, MG, JESUS, TSHX, LIVP, B12FOL, LACTIC, FT4, BMP #### [address] [address] [employer] Operator: Tato Ibarra MD Neutrophil (Seg) 73 % High 36-65 [facility] Comment on above: Performed By: #### O SMO, LD, MG, JESUS, TSHX, LIVP, B12FOL, LACTIC, FT4, BMP #### [address] [address] [employer] Operator: Tato Ibarra MD NRBC Automated 0.0 per 100 WBC Normal 0.[address] [facility] Comment on above: Performed By: #### O SMO, LD, MG, JESUS, TSHX, LIVP, B12FOL, LACTIC, FT4, BMP #### [address] [address] [employer] Operator: Tato Ibarra MD Platelet mean volume (Bld) [Entitic vol] 10.4 fL Normal 8.1-13.[address] [facility] Comment on above: Performed By: #### O SMO, LD, MG, JESUS, TSHX, LIVP, B12FOL, LACTIC, FT4, BMP #### [address] [address] [employer] Operator: Tato Ibarra MD Platelets (Bld) [#/Vol] 266 10*3/uL Normal 138-[address] [facility] Comment on above: Performed By: #### O SMO, LD, MG, JESUS, TSHX, LIVP, B12FOL, LACTIC, FT4, BMP #### [address] [address] [employer] Operator: Tato Ibarra MD RBC (Bld) [#/Vol] 2.60 10*6/uL Low 3.95-5.[address] [facility] Comment on above: Performed By: #### O SMO, LD, MG, JESUS, TSHX, LIVP, B12FOL, LACTIC, FT4, BMP #### [address] [address] [employer] Operator: Tato Ibarra MD RBC morphology finding Nom (Bld) ANISOCYTOSIS PRESENT Normal [facility] Comment on above: Performed By: #### O SMO, LD, MG, JESUS, TSHX, LIVP, B12FOL, LACTIC, FT4, BMP #### [address] [address] [employer] Operator: Tato Ibarra MD WBC (Bld) [#/Vol] 6.1 10*3/uL Normal 3.5-11.[address] [facility] Comment on above: Performed By: #### O SMO, LD, MG, JESUS, TSHX, LIVP, B12FOL, LACTIC, FT4, BMP #### [address] [address] [employer] Operator: Tato Ibarra MD Calcium, Ionicon 08-16-2024 Calcium [Moles/Vol] 1.18 mmol/L Normal 1.13-1.[address] [facility] Comment on above: Performed By: #### O SMO, LD, MG, JESUS, TSHX, LIVP, B12FOL, LACTIC, FT4, BMP #### [address] [phone] [employer]: Tato Ibarra MD Ferritinon 01-09-2024 Ferritin [Mass/Vol] 80 ng/mL Normal 13-[address] [facility] Comment on above: Result Comment: FERRITIN Reference Ranges: Adult Males 20 - 60 years: 30 - 400 ng/mL Adult females 17 - 60 years: 13 - 150 ng/mL Adults greater than 60 years: no established reference range Pediatrics: no established reference range Performed By: #### P TT, PT #### [address] [id number] [employer]: Tato Ibarra MD Hgb/Hcton 01-09-2024 Hematocrit (Bld) [Volume fraction] 23.7 % Low 36.3-47.[address] [facility] Comment on above: Performed By: #### O SMO, LD, MG, JESUS, TSHX, LIVP, B12FOL, LACTIC, FT4, BMP #### [address] [phone] [employer] Operator: Tato Ibarra MD Hemoglobin (Bld) [Mass/Vol] 8.0 g/dL Low 11.9-15.[address] [facility] Comment on above: Performed By: #### O SMO, LD, MG, JESUS, TSHX, LIVP, B12FOL, LACTIC, FT4, BMP #### [address] [phone] [employer] Operator: Tato Ibarra MD Iron Binding Cap.on 01-09-20 24 % Fe Saturation 10 % Low 20-[address] [facility] Comment on above: Performed By: #### O SMO, LD, MG, JESUS, TSHX, LIVP, B12FOL, LACTIC, FT4, BMP #### [facility] [address] [place] [address] [employer] Operator: Tato Ibarra MD Iron [Mass/Vol] 15 ug/dL Low 37-[address] [facility] Comment on above: Performed By: #### O SMO, LD, MG, JESUS, TSHX, LIVP, B12FOL, LACTIC, FT4, BMP #### [facility] [address] [place] [address] [employer] Operator: Tato Ibarra MD Total Fe Binding Cap 156 ug/dL Low 250-[address] [facility] Comment on above: Performed By: #### O SMO, LD, MG, JESUS, TSHX, LIVP, B12FOL, LACTIC, FT4, BMP #### [facility] [address] [place] [address] [employer] Operator: Tato Ibarra MD Unbound Fe Bind Cap 141 ug/dL Normal 112-[address] [facility] Comment on above: Performed By: #### O SMO, LD, MG, JESUS, TSHX, LIVP, B12FOL, LACTIC, FT4, BMP #### [facility] [address] [place] [address] [employer]: Tato Ibarra MD Magnesiumon 8 Magnesium [Mass/Vol] 2.0 mg/dL Normal 1.6-2.[address] [facility] Comment on above: Performed By: #### O SMO, LD, MG, JESUS, TSHX, LIVP, B12FOL, LACTIC, FT4, BMP #### [facility] [address] [place] [address] [employer] Operator: Tato Ibarra MD Basic Metab w/rfx MGon 01-07 Anion gap [Moles/Vol] 14 mmol/L Normal 9-[address] [facility] Comment on above: Performed By: #### P TT, PT #### [facility] [address] [place] [address] [employer] Operator: Tato Ibarra MD Calcium [Mass/Vol] 8.3 mg/dL Low 8.6-10.[address] [facility] Comment on above: Performed By: #### P TT, PT #### [address] [address] [employer] Operator: Tato Ibarra MD Chloride [Moles/Vol] 97 mmol/L Low 98-[address] [facility] Comment on above: Performed By: #### P TT, PT #### [address] [address] [employer] Operator: Tato Ibarra MD CO2 [Moles/Vol] 24 mmol/L Normal 20-[address] [facility] Comment on above: Performed By: #### P TT, PT #### [address] [address] [employer] Operator: Tato Ibarra MD Creatinine [Mass/Vol] 0.3 mg/dL Low 0.50-0.[address] [facility] Comment on above: Performed By: #### P TT, PT #### [address] [address] [employer] Operator: Tato Ibarra MD GFR/1.73 sq M.predicted among non-blacks MDRD (S/P/Bld) [Vol rate/Area] mL/min/{1.73_m2} Normal >[address] [facility] Comment [...] Performed By: #### P TT, PT #### [address] [phone] [employer] Operator: Tato Ibarra MD Glucose [Mass/Vol] 104 mg/dL High 74-[address] [facility] Comment on above: Performed By: #### P TT, PT #### [address] [address] [employer] Operator: Tato Ibarra MD Potassium [Moles/Vol] 3.0 mmol/L Low 3.7-5.[address] [facility] Comment on above: Performed By: #### P TT, PT #### [address] [address] [employer] Operator: Tato Ibarra MD Sodium [Moles/Vol] 135 mmol/L Low 136-[address] [facility] Comment on above: Performed By: #### P TT, PT #### [address] [address] [employer] Operator: Tato Ibarra MD Urea nitrogen [Mass/Vol] 4 mg/dL Low 6-[address] [facility] Comment on above: Performed By: #### P TT, PT #### [place] [address] [employer] Operator: Tato Ibarra MD CBC with Diffon 01-08-2024 Abs. Basophil 0.00 k/uL Normal 0.0-0.[address] [facility] Comment on above: Performed By: #### P TT, PT #### [place] [address] [employer] Operator: Tato Ibarra MD Abs.Imm.Granulocyte 0.00 k/uL Normal 0.00-0.[address] [facility] Comment on above: Performed By: #### P TT, PT #### [address] [address] [employer] Operator: Tato Ibarra MD Abs.Neutrophil (Seg) 7.78 k/uL High 1.8-7.[address] [facility] Comment on above: Performed By: #### P TT, PT #### [address] [address] [employer] Operator: Tato Ibarra MD Basophils/100 WBC (Bld) 0 % Normal 0-[address] [facility] Comment on above: Performed By: #### P TT, PT #### [address] [address] [employer] Operator: Tato Ibarra MD Eosinophils (Bld) [#/Vol] 0.00 10*3/uL Normal 0.0-0.[address] [facility] Comment on above: Performed By: #### P TT, PT #### [address] [address] [employer] Operator: Tato Ibarra MD Eosinophils/100 WBC (Bld) 0 % Low 1-[address] [facility] Comment on above: Performed By: #### P TT, PT #### [address] [address] [employer] Operator: Tato Ibarra MD Immature granulocytes/100 WBC (Bld) 0 % Normal [address] [facility] Comment on above: Performed By: #### P TT, PT #### [address] [address] [employer] Operator: Tato Ibarra MD Lymphocytes (Bld) [#/Vol] 1.15 10*3/uL Normal 1.0-4.[address] [facility] Comment on above: Performed By: #### P TT, PT #### [address] [address] [employer] Operator: Tato Ibarra MD Lymphocytes/100 WBC (Bld) 12 % Low 24-[address] [facility] Comment on above: Performed By: #### P TT, PT #### [address] [address] [employer] Operator: Tato Ibarra MD Monocytes (Bld) [#/Vol] 0.67 10*3/uL Normal 0.1-0.[address] [facility] Comment on above: Performed By: #### P TT, PT #### [address] [address] [employer] Operator: Tato Ibarra MD Monocytes/100 WBC (Bld) 7 % Normal 1-[address] [facility] Comment on above: Performed By: #### P TT, PT #### [address] [address] [employer] Operator: Tato Ibarra MD Morphology Ritesh (Bld) [Interp] ANISOCYTOSIS PRESENT Normal [facility] Comment on above: Performed By: #### P TT, PT #### [address] [address] [employer] Operator: Tato Ibarra MD Neutrophil (Seg) 81 % High 36-66 [facility] Comment on above: Performed By: #### P TT, PT #### [address] [address] [employer] Operator: Tato Ibarra MD Erythrocyte distribution width (RBC) [Ratio] 20.6 % High 11.8-14.[address] [facility] Comment on above: Performed By: #### P TT, PT #### [address] [address] [employer] Operator: Tato Ibarra MD Hematocrit (Bld) [Volume fraction] 27.2 % Low 36.3-47.[address] [facility] Comment on above: Performed By: #### P TT, PT #### [address] [address] [employer] Operator: Tato Ibarra MD Hemoglobin (Bld) [Mass/Vol] 8.8 g/dL Low 11.9-15.[address] [facility] Comment on above: Performed By: #### P TT, PT #### [address] [address] [employer] Operator: Tato Ibarra MD MCH (RBC) [Entitic mass] 30.6 pg Normal 25.2-33.[address] [facility] Comment on above: Performed By: #### P TT, PT #### [address] [address] [employer] Operator: Tato Ibarra MD MCHC (RBC) [Mass/Vol] 32.4 g/dL Normal 28.4-34.[address] [facility] Comment on above: Performed By: #### P TT, PT #### [address] [address] [employer] Operator: Tato Ibarra MD MCV (RBC) [Entitic vol] 94.4 fL Normal 82.6-102.[address] [facility] Comment on above: Performed By: #### P TT, PT #### [address] [address] [employer] Operator: Tato Ibarra MD NRBC Automated 0.0 per 100 WBC Normal 0.[address] [facility] Comment on above: Performed By: #### P TT, PT #### [place] [address] [employer] Operator: Tato Ibarra MD Platelet mean volume (Bld) [Entitic vol] 10.5 fL Normal 8.1-13.[address] [facility] Comment on above: Performed By: #### P TT, PT #### [address] [address] [employer] Operator: Tato Ibarra MD Platelets (Bld) [#/Vol] 268 10*3/uL Normal 138-[address] [facility] Comment on above: Performed By: #### P TT, PT #### [address] [address] [employer] Operator: Tato Ibarra MD RBC (Bld) [#/Vol] 2.88 10*6/uL Low 3.95-5.[address] [facility] Comment on above: Performed By: #### P TT, PT #### [address] [address] [employer] Operator: Tato Ibarra MD WBC (Bld) [#/Vol] 9.6 10*3/uL Normal 3.5-11.[address] [facility] Comment on above: Performed By: #### P TT, PT #### [address] [address] [employer] Operator: Tato Ibarra MD Calcium, Ionicon 01-08-2024 Calcium [Moles/Vol] 1.12 mmol/L Low 1.13-1.[address] [facility] Comment on above: Performed By: #### P TT, PT #### [address] [address] [employer] Operator: Tato Ibarra MD Hgb/Hcton 01-08-2024 Hematocrit (Bld) [Volume fraction] 24.7 % Low 36.3-47.[address] [facility] Comment on above: Performed By: #### O SMO, LD, MG, JESUS, TSHX, LIVP, B12FOL, LACTIC, FT4, BMP #### [facility] [address] [place] [address] [employer] Operator: Tato Ibarra MD Hemoglobin (Bld) [Mass/Vol] 8.0 g/dL Low 11.9-15.[address] [facility] Comment on above: Performed By: #### O SMO, LD, MG, JESUS, TSHX, LIVP, B12FOL, LACTIC, FT4, BMP #### [facility] [address] [place] [address] [phone] [employer] Operator: Tato Ibarra MD Hematocrit (Bld) [Volume fraction] 27.3 % Low 36.3-47.[address] [facility] Comment on above: Performed By: #### P TT, PT #### [address] [address] [employer] Operator: Tato Ibarra MD Hemoglobin (Bld) [Mass/Vol] 8.6 g/dL Low 11.9-15.[address] [facility] Comment on above: Performed By: #### P TT, PT #### [address] [address] [employer] Operator: Tato Ibarra MD Hematocrit (Bld) [Volume fraction] 26.5 % Low 36.3-47.[address] [facility] Comment on above: Performed By: #### O SMO, LD, MG, JESUS, TSHX, LIVP, B12FOL, LACTIC, FT4, BMP #### [facility] [address] [place] [address] [employer] Operator: Tato Ibarra MD Hemoglobin (Bld) [Mass/Vol] 8.1 g/dL Low 11.9-15.[address] [facility] Comment on above: Performed By: #### O SMO, LD, MG, JESUS, TSHX, LIVP, B12FOL, LACTIC, FT4, BMP #### [facility] [address] [place] [address] [employer] Operator: Tato Ibarra MD Hematocrit (Bld) [Volume fraction] 26.0 % Low 36.3-47.[address] [facility] Comment on above: Performed By: #### O SMO, LD, MG, JESUS, TSHX, LIVP, B12FOL, LACTIC, FT4, BMP #### [address] [phone] [employer] Operator: Tato Ibarra MD Hemoglobin (Bld) [Mass/Vol] 8.0 g/dL Low 11.9-15.[address] [facility] Comment on above: Performed By: #### O SMO, LD, MG, JESUS, TSHX, LIVP, B12FOL, LACTIC, FT4, BMP #### [address] [address] [employer] Operator: Tato Ibarra MD K (Potassium)on 01-08-2024 Potassium [Moles/Vol] 3.3 mmol/L Low 3.7-5.[address] [facility] Comment on above: Performed By: #### P TT, PT #### [facility] [address] [place] [address] [employer] Operator: Tato Ibarra MD Magnesiumon 01-08-2024 Magnesium [Mass/Vol] 1.8 mg/dL Normal 1.6-2.[address] [facility] Comment on above: Performed By: #### P TT, PT #### [facility] [address] [place] [address] [employer] Operator: Tato Ibarra MD Troponinon 01-08-2024 Troponin, High Sens 83 ng/L Critically high 0-[address] [facility] Comment on above: Result Comment: High Sensitivity Troponin values cannot be compared with other Troponin methodologies. Previous Alert Value Reported Performed By: #### P TT, PT #### [address] [address] [employer] Operator: Tato Ibarra MD Troponin, High Sens 84 ng/L Critically high 0-[address] [facility] Comment on above: Result Comment: High Sensitivity Troponin values cannot be compared with other Troponin methodologies. Performed By: #### P TT, PT #### [address] [address] [employer] Operator: Tato Ibarra MD Troponin, High Sens 42 ng/L High 0-[address] [facility] Comment on above: Result Comment: High Sensitivity Troponin values cannot be compared with other Troponin methodologies. Performed By: #### O SMO, LD, MG, JESUS, TSHX, LIVP, B12FOL, LACTIC, FT4, BMP #### [employer] [address] [place] [address] [employer] Operator: Tato Ibarra MD XR CHEST PORTABLEon 01-08-20 [...] Gildardo Caraballo MD 01/08/24 Final result Normal [facility] Basic Metab w/rfx MGon 01-06 Anion gap [Moles/Vol] 8 mmol/L Low 9-[address] [facility] Comment on above: Performed By: #### O SMO, LD, MG, JESUS, TSHX, LIVP, B12FOL, LACTIC, FT4, BMP #### [facility] [address] [place] [address] [employer] Operator: Tato Ibarra MD Calcium [Mass/Vol] 7.5 mg/dL Low 8.6-10.[address] [facility] Comment on above: Performed By: #### O SMO, LD, MG, JESUS, TSHX, LIVP, B12FOL, LACTIC, FT4, BMP #### [facility] [address] [place] [address] [employer] Operator: Tato Ibarra MD Chloride [Moles/Vol] 107 mmol/L Normal 98-[address] [facility] Comment on above: Performed By: #### O SMO, LD, MG, JESUS, TSHX, LIVP, B12FOL, LACTIC, FT4, BMP #### [address] [address] [employer] Operator: Tato Ibarra MD CO2 [Moles/Vol] 24 mmol/L Normal 20-[address] [facility] Comment on above: Performed By: #### O SMO, LD, MG, JESUS, TSHX, LIVP, B12FOL, LACTIC, FT4, BMP #### [address] [address]208 [employer] Operator: Tato Ibarra MD Creatinine [Mass/Vol] 0.4 mg/dL Low 0.50-0.[address] [facility] Comment on above: Performed By: #### O SMO, LD, MG, JESUS, TSHX, LIVP, B12FOL, LACTIC, FT4, BMP #### [address] [phone] [employer] Operator: Tato Ibarra MD GFR/1.73 sq M.predicted among non-blacks MDRD (S/P/Bld) [Vol rate/Area] mL/min/{1.73_m2} Normal >[address] [facility] Comment [...] TSHX, LIVP, B12FOL, LACTIC, FT4, BMP #### [address] [phone] [employer] Operator: Tato Ibarra MD Glucose [Mass/Vol] 88 mg/dL Normal 74-[address] [facility] Comment on above: Performed By: #### O SMO, LD, MG, JESUS, TSHX, LIVP, B12FOL, LACTIC, FT4, BMP #### [facility] [address] [place] [address] [employer] Operator: Tato Ibarra MD Potassium [Moles/Vol] 3.2 mmol/L Low 3.7-5.[address] [facility] Comment on above: Result Comment: SPEC IMEN SLIGHTLY HEMOLYZED, RESULTS MAY BE ADVERSELY AFFECTED. Performed By: #### O SMO, LD, MG, JESUS, TSHX, LIVP, B12FOL, LACTIC, FT4, BMP #### [facility] [address] [place] [address] [phone] [employer] Operator: Tato Ibarra MD Sodium [Moles/Vol] 139 mmol/L Normal 136-[address] [facility] Comment on above: Performed By: #### O SMO, LD, MG, JESUS, TSHX, LIVP, B12FOL, LACTIC, FT4, BMP #### [facility] [address] [place] [address] [phone] [employer] Operator: Tato Ibarra MD Urea nitrogen [Mass/Vol] 8 mg/dL Normal 6-[address] [facility] Comment on above: Performed By: #### O SMO, LD, MG, JESUS, TSHX, LIVP, B12FOL, LACTIC, FT4, BMP #### [facility] [address] [place] [address] [employer] Operator: Tato Ibarra MD CBC with Diffon 01-07-2024 Abs. Basophil 0.06 k/uL Normal 0.00-0.[address] [facility] Comment on above: Performed By: #### O SMO, LD, MG, JESUS, TSHX, LIVP, B12FOL, LACTIC, FT4, BMP #### [facility] [address] [place] [address] [phone] [employer] Operator: Tato Ibarra MD Abs.Imm.Granulocyte 0.00 k/uL Normal 0.00-0.[address] [facility] Comment on above: Performed By: #### O SMO, LD, MG, JESUS, TSHX, LIVP, B12FOL, LACTIC, FT4, BMP #### [address] [address] [employer] Operator: Tato Ibarra MD Abs.Neutrophil (Seg) 3.94 k/uL Normal 1.50-8.[address] [facility] Comment on above: Performed By: #### O SMO, LD, MG, JESUS, TSHX, LIVP, B12FOL, LACTIC, FT4, BMP #### [address] [address] [employer] Operator: Tato Ibarra MD Basophils/100 WBC (Bld) 1 % Normal 0-[address] [facility] Comment on above: Performed By: #### O SMO, LD, MG, JESUS, TSHX, LIVP, B12FOL, LACTIC, FT4, BMP #### [address] [address] [employer] Operator: Tato Ibarra MD Eosinophils (Bld) [#/Vol] 0.12 10*3/uL Normal 0.00-0.[address] [facility] Comment on above: Performed By: #### O SMO, LD, MG, JESUS, TSHX, LIVP, B12FOL, LACTIC, FT4, BMP #### [facility] [address] [place] [address] [employer] Operator: Tato Ibarra MD Eosinophils/100 WBC (Bld) 2 % Normal 1-[address] [facility] Comment on above: Performed By: #### O SMO, LD, MG, JESUS, TSHX, LIVP, B12FOL, LACTIC, FT4, BMP #### [facility] [address] [place] [address] [employer] Operator: Tato Ibarra MD Immature granulocytes/100 WBC (Bld) 0 % Normal [address] [facility] Comment on above: Performed By: #### O SMO, LD, MG, JESUS, TSHX, LIVP, B12FOL, LACTIC, FT4, BMP #### [facility] [address] [place] [address] [employer] Operator: Tato Ibarra MD Lymphocytes (Bld) [#/Vol] 1.22 10*3/uL Normal 1.10-3.[address] [facility] Comment on above: Performed By: #### O SMO, LD, MG, JESUS, TSHX, LIVP, B12FOL, LACTIC, FT4, BMP #### [address] [address] [employer] Operator: Tato Ibarra MD Lymphocytes/100 WBC (Bld) 21 % Low 24-[address] [facility] Comment on above: Performed By: #### O SMO, LD, MG, JESUS, TSHX, LIVP, B12FOL, LACTIC, FT4, BMP #### [facility] [address] [place] [address] [employer] Operator: Tato Ibarra MD Monocytes (Bld) [#/Vol] 0.46 10*3/uL Normal 0.10-1.[address] [facility] Comment on above: Performed By: #### O SMO, LD, MG, JESUS, TSHX, LIVP, B12FOL, LACTIC, FT4, BMP #### [facility] [address] [place] [address] [employer] Operator: Tato Ibarra MD Monocytes/100 WBC (Bld) 8 % Normal 3-[address] [facility] Comment on above: Performed By: #### O SMO, LD, MG, JESUS, TSHX, LIVP, B12FOL, LACTIC, FT4, BMP #### [facility] [address] [place] [address] [employer] Operator: Tato Ibarra MD Morphology Ritesh (Bld) [Interp] ANISOCYTOSIS PRESENT Normal [facility] Comment on above: Performed By: #### O SMO, LD, MG, JESUS, TSHX, LIVP, B12FOL, LACTIC, FT4, BMP #### [address] [address] [employer] Operator: Tato Ibarra MD Neutrophil (Seg) 68 % High 36-65 [facility] Comment on above: Performed By: #### O SMO, LD, MG, JESUS, TSHX, LIVP, B12FOL, LACTIC, FT4, BMP #### [address] [address] [employer] Operator: Tato Ibarra MD Erythrocyte distribution width (RBC) [Ratio] 22.0 % High 11.8-14.[address] [facility] Comment on above: Performed By: #### O SMO, LD, MG, JESUS, TSHX, LIVP, B12FOL, LACTIC, FT4, BMP #### [address] [address] [employer] Operator: Tato Ibarra MD Hematocrit (Bld) [Volume fraction] 23.2 % Low 36.3-47.[address] [facility] Comment on above: Performed By: #### O SMO, LD, MG, JESUS, TSHX, LIVP, B12FOL, LACTIC, FT4, BMP #### [address] [address] [employer] Operator: Tato Ibarra MD Hemoglobin (Bld) [Mass/Vol] 7.2 g/dL Low 11.9-15.[address] [facility] Comment on above: Performed By: #### O SMO, LD, MG, JESUS, TSHX, LIVP, B12FOL, LACTIC, FT4, BMP #### [address] [address] [employer] Operator: Tato Ibarra MD MCH (RBC) [Entitic mass] 29.4 pg Normal 25.2-33.[address] [facility] Comment on above: Performed By: #### O SMO, LD, MG, JESUS, TSHX, LIVP, B12FOL, LACTIC, FT4, BMP #### [address] [address] [employer] Operator: Tato Ibarra MD MCHC (RBC) [Mass/Vol] 31.0 g/dL Normal 28.4-34.[address] [facility] Comment on above: Performed By: #### O SMO, LD, MG, JESUS, TSHX, LIVP, B12FOL, LACTIC, FT4, BMP #### [address] [address] [employer] Operator: Tato Ibarra MD MCV (RBC) [Entitic vol] 94.7 fL Normal 82.6-102.[address] [facility] Comment on above: Performed By: #### O SMO, LD, MG, JESSU, TSHX, LIVP, B12FOL, LACTIC, FT4, BMP #### [address] [address] [employer] Operator: Tato Ibarra MD NRBC Automated 0.0 per 100 WBC Normal 0.[address] [facility] Comment on above: Performed By: #### O SMO, LD, MG, JESUS, TSHX, LIVP, B12FOL, LACTIC, FT4, BMP #### [address] [address] [employer]: Tato Ibarra MD Platelet mean volume (Bld) [Entitic vol] 11.4 fL Normal 8.1-13.[address] [facility] Comment on above: Performed By: #### O SMO, LD, MG, JESUS, TSHX, LIVP, B12FOL, LACTIC, FT4, BMP #### [address] [address] [employer] Operator: Tato Ibarra MD Platelets (Bld) [#/Vol] 197 10*3/uL Normal 138-[address] [facility] Comment on above: Performed By: #### O SMO, LD, MG, JESUS, TSHX, LIVP, B12FOL, LACTIC, FT4, BMP #### [facility] [address] [place] [address] [phone] [employer] Operator: Tato Ibarra MD RBC (Bld) [#/Vol] 2.45 10*6/uL Low 3.95-5.[address] [facility] Comment on above: Performed By: #### O SMO, LD, MG, JESUS, TSHX, LIVP, B12FOL, LACTIC, FT4, BMP #### [facility] [address] [place] [address] [phone] [employer] Operator: Tato Ibarra MD WBC (Bld) [#/Vol] 5.8 10*3/uL Normal 3.5-11.[address] [facility] Comment on above: Performed By: #### O SMO, LD, MG, JESUS, TSHX, LIVP, B12FOL, LACTIC, FT4, BMP #### [facility] [address] [place] [address] [phone] [employer]: Tato Ibarra MD Calcium, Ionicon 01-07-2024 Calcium [Moles/Vol] 1.11 mmol/L Low 1.13-1.[address] [facility] Comment on above: Performed By: #### O SMO, LD, MG, JESUS, TSHX, LIVP, B12FOL, LACTIC, FT4, BMP #### [facility] [address] [place] [address] [phone] [employer]: Tato Ibarra MD Glucose,Whole Bloodon 2023 Glucose [Mass/Vol] 97 mg/dL Normal 65-[address] [facility] Glucose [Mass/Vol] 100 mg/dL Normal 65-[address] [facility] Glucose [Mass/Vol] 89 mg/dL Normal 65-[address] [facility] Hgb/Hcton 01-07-2024 Hematocrit (Bld) [Volume fraction] 21.9 % Low 36.3-47.[address] [facility] Comment on above: Performed By: #### O SMO, LD, MG, JESUS, TSHX, LIVP, B12FOL, LACTIC, FT4, BMP #### [facility] [address] [place] [address] [employer] Operator: Tato Ibarra MD Hemoglobin (Bld) [Mass/Vol] 7.1 g/dL Low 11.9-15.[address] [facility] Comment on above: Performed By: #### O SMO, LD, MG, JESUS, TSHX, LIVP, B12FOL, LACTIC, FT4, BMP #### [facility] [facility] [address] [place] [id number] [employer] Operator: Tato Ibarra MD Hematocrit (Bld) [Volume fraction] 26.5 % Low 36.3-47.[address] [facility] Comment on above: Performed By: #### O SMO, LD, MG, JESUS, TSHX, LIVP, B12FOL, LACTIC, FT4, BMP #### [facility] [address] [place] [phone] [employer] Operator: Tato Ibarra MD Hemoglobin (Bld) [Mass/Vol] 8.2 g/dL Low 11.9-15.[address] [facility] Comment on above: Performed By: #### O SMO, LD, MG, JESUS, TSHX, LIVP, B12FOL, LACTIC, FT4, BMP #### [facility] [address] [place] [phone] [employer]: Tato Ibarra MD K (Potassium)on 01-07-2024 Potassium [Moles/Vol] 3.7 mmol/L Normal 3.7-5.[address] [facility] Comment on above: Performed By: #### P TT, PT #### [facility] [address] [place] [address] [phone] [employer]: Tato Ibarra MD MRSA, DNA, Nasalon MRSA, DNA, Nasal Negative Normal NEG [facility] Comment on above: Result Comment: NEGA [...] TSHX, LIVP, B12FOL, LACTIC, FT4, BMP #### [address] [phone] [employer]: Tato Ibarra MD Magnesiumon 01-07-2024 Magnesium [Mass/Vol] 2.1 mg/dL Normal 1.6-2.[address] [facility] Comment on above: Performed By: #### O SMO, LD, MG, JESUS, TSHX, LIVP, B12FOL, LACTIC, FT4, BMP #### [facility] [address] [place] [address] [phone] [employer]: Tato Ibarra MD Basic Metab w/rfx MGon 01-05 Anion gap [Moles/Vol] 7 mmol/L Low 9-[address] [facility] Comment on above: Performed By: #### O SMO, LD, MG, JESUS, TSHX, LIVP, B12FOL, LACTIC, FT4, BMP #### [address] [phone] [employer]: Tato Ibarra MD Calcium [Mass/Vol] 7.2 mg/dL Low 8.6-10.[address] [facility] Comment on above: Performed By: #### O SMO, LD, MG, JESUS, TSHX, LIVP, B12FOL, LACTIC, FT4, BMP #### [address] [phone] [employer]: Tato Ibarra MD Chloride [Moles/Vol] 111 mmol/L High 98-[address] [facility] Comment on above: Performed By: #### O SMO, LD, MG, JESUS, TSHX, LIVP, B12FOL, LACTIC, FT4, BMP #### [address] [phone] [employer]: Tato Ibarra MD CO2 [Moles/Vol] 24 mmol/L Normal 20-[address] [facility] Comment on above: Performed By: #### O SMO, LD, MG, JESUS, TSHX, LIVP, B12FOL, LACTIC, FT4, BMP #### [address] [phone] [employer]: Tato Ibarra MD Creatinine [Mass/Vol] 0.4 mg/dL Low 0.50-0.[address] [facility] Comment on above: Performed By: #### O SMO, LD, MG, JESUS, TSHX, LIVP, B12FOL, LACTIC, FT4, BMP #### [address] [phone] [employer]: Tato Ibarra MD GFR/1.73 sq M.predicted among non-blacks MDRD (S/P/Bld) [Vol rate/Area] mL/min/{1.73_m2} Normal >[address] [facility] Comment [...] TSHX, LIVP, B12FOL, LACTIC, FT4, BMP #### [address] [phone] [employer]: Tato Ibarra MD Glucose [Mass/Vol] 103 mg/dL High 74-[address] [facility] Comment on above: Performed By: #### O SMO, LD, MG, JESUS, TSHX, LIVP, B12FOL, LACTIC, FT4, BMP #### [facility] [address] [place] [address] [phone] [employer]: Tato Ibarra MD Potassium [Moles/Vol] 3.7 mmol/L Normal 3.7-5.[address] [facility] Comment on above: Performed By: #### O SMO, LD, MG, JESUS, TSHX, LIVP, B12FOL, LACTIC, FT4, BMP #### [facility] [address] [place] [address] [phone] [employer]: Tato Ibarra MD Sodium [Moles/Vol] 142 mmol/L Normal 136-[address] [facility] Comment on above: Performed By: #### O SMO, LD, MG, JESUS, TSHX, LIVP, B12FOL, LACTIC, FT4, BMP #### [facility] [employer] [address] [place] [phone] [employer] Operator: Tato Ibarra MD Urea nitrogen [Mass/Vol] 14 mg/dL Normal 6-[address] [facility] Comment on above: Performed By: #### O SMO, LD, MG, JESUS, TSHX, LIVP, B12FOL, LACTIC, FT4, BMP #### [facility] [address] [place] [address] [phone] [employer]: Tato Ibarra MD Basophils Auto (Bld) [#/Vol] on 01-06-2024 Basophils (Bld) [#/Vol] 0.0 10 3/uL 0.0-0.1 [facility] Basophils/100 WBC Auto (Bld) on 01-06-2024 Basophils/100 WBC (Bld) 0.5 % 0.2-2.0 [facility] CBC with Diffon 01-06-2024 Abs. Basophil <0.03 Normal 0.00-0.[address] [facility] Comment on above: Performed By: #### P TT, PT #### [address] [address] [employer] Operator: Tato Ibarra MD Abs.Imm.Granulocyte 0.04 k/uL Normal 0.00-0.[address] [facility] Comment on above: Performed By: #### P TT, PT #### [address] [address] [employer] Operator: Tato Ibarra MD Abs.Neutrophil (Seg) 5.60 k/uL Normal 1.50-8.[address] [facility] Comment on above: Performed By: #### P TT, PT #### [address] [address] [employer]: Tato Ibarra MD Basophils/100 WBC (Bld) 0 % Normal 0-[address] [facility] Comment on above: Performed By: #### P TT, PT #### [address] [address] [employer]: Tato Ibarra MD Eosinophils (Bld) [#/Vol] 0.03 10*3/uL Normal 0.00-0.[address] [facility] Comment on above: Performed By: #### P TT, PT #### [address] [address] [employer]: Tato Ibarra MD Eosinophils/100 WBC (Bld) 0 % Low 1-[address] [facility] Comment on above: Performed By: #### P TT, PT #### [address] [address] [employer]: Tato Ibarra MD Erythrocyte distribution width (RBC) [Ratio] 19.9 % High 11.8-14.[address] [facility] Comment on above: Performed By: #### P TT, PT #### [address] [address] [employer]: Tato Ibarra MD Hematocrit (Bld) [Volume fraction] 22.4 % Low 36.3-47.[address] [facility] Comment on above: Performed By: #### P TT, PT #### [address] [address] [employer] Operator: Tato Ibarra MD Hemoglobin (Bld) [Mass/Vol] 6.9 g/dL Critically low 11.9-15.[address] [facility] Comment on above: Performed By: #### P TT, PT #### [address] [address] [employer]: Tato Ibarra MD Immature granulocytes/100 WBC (Bld) 1 % High [address] [facility] Comment on above: Performed By: #### P TT, PT #### [address] [address] [employer]: Tato Ibarra MD Lymphocytes (Bld) [#/Vol] 0.99 10*3/uL Low 1.10-3.[address] [facility] Comment on above: Performed By: #### P TT, PT #### [address] [address] [employer]: Tato Ibarra MD Lymphocytes/100 WBC (Bld) 14 % Low 24-[address] [facility] Comment on above: Performed By: #### P TT, PT #### [address] [address] [employer]: Tato Ibarra MD MCH (RBC) [Entitic mass] 30.3 pg Normal 25.2-33.[address] [facility] Comment on above: Performed By: #### P TT, PT #### [address] [address] [employer] Operator: Tato Ibarra MD MCHC (RBC) [Mass/Vol] 30.8 g/dL Normal 28.4-34.[address] [facility] Comment on above: Performed By: #### P TT, PT #### [address] [address] [employer] Operator: Tato Ibarra MD MCV (RBC) [Entitic vol] 98.2 fL Normal 82.6-102.[address] [facility] Comment on above: Performed By: #### P TT, PT #### [address] [address] [employer] Operator: Tato Ibarra MD Monocytes (Bld) [#/Vol] 0.53 10*3/uL Normal 0.10-1.[address] [facility] Comment on above: Performed By: #### P TT, PT #### [address] [address] [employer] Operator: Tato Ibarra MD Monocytes/100 WBC (Bld) 7 % Normal 3-[address] [facility] Comment on above: Performed By: #### P TT, PT #### [address] [address] [employer] Operator: Tato Ibarra MD Neutrophil (Seg) 78 % High 36-65 [facility] Comment on above: Performed By: #### P TT, PT #### [address] [address] [employer]: Tato Ibarra MD NRBC Automated 0.0 per 100 WBC Normal 0.[address] [facility] Comment on above: Performed By: #### P TT, PT #### [address] [address] [employer] Operator: Tato Ibarra MD Platelet mean volume (Bld) [Entitic vol] 10.6 fL Normal 8.1-13.[address] [facility] Comment on above: Performed By: #### P TT, PT #### [address] [address] [employer] Operator: Tato Ibarra MD Platelets (Bld) [#/Vol] 195 10*3/uL Normal 138-[address] [facility] Comment on above: Performed By: #### P TT, PT #### [address] [address] [employer] Operator: Tato Ibarra MD RBC (Bld) [#/Vol] 2.28 10*6/uL Low 3.95-5.[address] [facility] Comment on above: Performed By: #### P TT, PT #### [address] [address] [employer] Operator: Tato Ibarra MD RBC morphology finding Nom (Bld) ANISOCYTOSIS PRESENT Normal [facility] Comment on above: Performed By: #### P TT, PT #### [address] [address] [employer] Operator: Tato Ibarra MD WBC (Bld) [#/Vol] 7.2 10*3/uL Normal 3.5-11.[address] [facility] Comment on above: Performed By: #### P TT, PT #### [address] [address] [employer] Operator: Tato Ibarra MD CT CHEST WO CONTRASTon [...] Cory Bella MD 01/06/24 Final result Normal [facility] CTA ABDOMEN PELVIS W WO CONT [facility] 01-06-2024 CTA ABDOMEN PELVIS W WO [...] Dain Rodriguez MD 01/06/24 Final result Normal [facility] Calcium, [employer] 01-06-2024 Calcium [Moles/Vol] 1.07 mmol/L Low 1.13-1.[address] [facility] Comment on above: Performed By: #### O SMO, LD, MG, JESUS, TSHX, LIVP, B12FOL, LACTIC, FT4, BMP #### [facility] [address] [phone] [employer] Operator: Tato Ibarra MD Eosinophils/100 WBC Auto (Bl d)on 01-06-2024 Eosinophils/100 WBC (Bld) 1.2 % 0.9-7.0 [facility] Erythrocyte distribution wid th Auto (RBC) [Ratio]on 01-06-2024 Erythrocyte distribution width (RBC) [Ratio] 19.2 % High 11.0-15.0 [facility] Estimated glomerular filtrat ion rate (GFR) non- Americanon 01-06-2024 GFR/1.73 sq M.predicted among non-blacks MDRD (S/P/Bld) [Vol rate/Area] mL/min/{1.73_m2} >=60 [facility] Globulin Calc (S) [Mass/Vol] on 01-06-2024 Globulin (S) [Mass/Vol] 2.1 g/dL [facility] Hematocrit Auto (Bld) [Volum e fraction]on 01-06-2024 Hematocrit (Bld) [Volume fraction] 19.1 % Low 36.0-48.0 [facility] Comment on above: RESULTS CALLED TO RACHEL AVALOS RN Hemoglobin [Mass/volume] in Bloodon 01-06-2024 Hemoglobin (Bld) [Mass/Vol] 6.0 g/dL Low 12.0-16.0 [facility] Comment on above: RESULTS CALLED TO RACHEL AVALOS RN Hemoglobin.gastrointestinal [Presence] in Stoolon 01-06-2024 Hemoglobin.gastroint estinal Ql (Stl) Positive Abnormal [facility] Hgb/Hcton 01-06-2024 Hematocrit (Bld) [Volume fraction] 23.4 % Low 36.3-47.[address] [facility] Comment on above: Performed By: #### O SMO, LD, MG, JESUS, TSHX, LIVP, B12FOL, LACTIC, FT4, BMP #### [facility] [address] [place] [address] [phone] [employer] Operator: Tato Ibarra MD Hemoglobin (Bld) [Mass/Vol] 7.5 g/dL Low 11.9-15.[address] [facility] Comment on above: Performed By: #### O SMO, LD, MG, JESUS, TSHX, LIVP, B12FOL, LACTIC, FT4, BMP #### [employer] [address] [place] [address] [phone] [employer] Operator: Tato Ibarra MD Hematocrit (Bld) [Volume fraction] 23.9 % Low 36.3-47.[address] [facility] Comment on above: Performed By: #### O SMO, LD, MG, JESUS, TSHX, LIVP, B12FOL, LACTIC, FT4, BMP #### [employer] [address] [place] [address] [phone] [employer] Operator: Tato Ibarra MD Hemoglobin (Bld) [Mass/Vol] 7.8 g/dL Low 11.9-15.[address] [facility] Comment on above: Performed By: #### O SMO, LD, MG, JESUS, TSHX, LIVP, B12FOL, LACTIC, FT4, BMP #### [facility] [address] [place] [address] [phone] [employer]: Tato Ibarra MD Laboratory - Chemistry and C hemistry - challengeon 01-06-2024 Albumin [Mass/Vol] 1.6 g/dL Low 3.4-5.0 [facility] ALP [Catalytic activity/Vol] 92 U/L 46-116 [facility] ALT [Catalytic activity/Vol] 19 U/L 14-59 [facility] AST [Catalytic activity/Vol] 34 U/L 15-37 [facility] Bilirubin [Mass/Vol] 0.3 mg/dL 0.2-1.0 [facility] Bilirubin.direct [Mass/Vol] 0.1 mg/dL 0.0-0.2 [facility] Calcium [Mass/Vol] 7.8 mg/dL Low 8.5-10.1 [facility] Chloride [Moles/Vol] 109 mmol/L High 98-107 [facility] CO2 [Moles/Vol] 28.5 mmol/L 21.0-32.0 [facility] Creatinine [Mass/Vol] 0.63 mg/dL 0.55-1.02 [facility] GFR/1.73 sq M.predicted MDRD (S/P/Bld) [Vol rate/Area] mL/min/{1.73_m2} >=60 [facility] Glucose [Mass/Vol] 106 mg/dL 74-106 [facility] Potassium [Moles/Vol] 3.9 mmol/L 3.5-5.1 [facility] Protein [Mass/Vol] 3.7 g/dL Low 6.4-8.2 [facility] Sodium [Moles/Vol] 142 mmol/L 136-145 [facility] Urea nitrogen [Mass/Vol] 12.0 mg/dL 7.0-18.0 [facility] Urea nitrogen/Creatinine [Mass ratio] 19.0 mg/mg [facility] Laboratory - Hematology and Cell countson 01-06-2024 Immature granulocytes/100 WBC (Bld) 0.5 % 0.0-0.5 [facility] Lactic Acidon 01-06-2024 Lactic Acid,Whole Bl 1.4 mmol/L Normal 0.7-2.[address] [facility] Comment on above: Performed By: #### O SMO, LD, MG, JESUS, TSHX, LIVP, B12FOL, LACTIC, FT4, BMP #### [facility] [employer] [address] [place] [address] [employer] Operator: Tato Ibarra MD Leukocytes [#/volume] correc patty for nucleated erythrocytes in Blood by Automated counon 01-06-2024 WBC corrected for nucl RBC Auto (Bld) [#/Vol] 7.8 10 3/uL 4.0-11.0 [facility] Liver Profileon 01-06-2024 Albumin [Mass/Vol] 2.4 g/dL Low 3.5-5.[address] [facility] Comment on above: Performed By: #### O SMO, LD, MG, JESUS, TSHX, LIVP, B12FOL, LACTIC, FT4, BMP #### [address] [address] [employer] Operator: Tato Ibarra MD Albumin/Glob Ratio 2.0 Normal 1.0-2.[address] [facility] Comment on above: Performed By: #### O SMO, LD, MG, JESUS, TSHX, LIVP, B12FOL, LACTIC, FT4, BMP #### [address] [address] [employer] Operator: Tato Ibarra MD Alkaline Phos 87 U/L Normal 35-[address] [facility] Comment on above: Performed By: #### O SMO, LD, MG, JESUS, TSHX, LIVP, B12FOL, LACTIC, FT4, BMP #### [address] [address] [employer] Operator: Tato Ibarra MD ALT [Catalytic activity/Vol] 12 U/L Normal 10-[address] [facility] Comment on above: Performed By: #### O SMO, LD, MG, JESUS, TSHX, LIVP, B12FOL, LACTIC, FT4, BMP #### [facility] [address] [place] [address] [employer] Operator: Tato Ibarra MD AST [Catalytic activity/Vol] 30 U/L Normal 10-[address] [facility] Comment on above: Performed By: #### O SMO, LD, MG, JESUS, TSHX, LIVP, B12FOL, LACTIC, FT4, BMP #### [address] [address] [employer]: Tato Ibarra MD Bilirubin [Mass/Vol] 0.4 mg/dL Normal 0.00-1.[address] [facility] Comment on above: Performed By: #### O SMO, LD, MG, JESUS, TSHX, LIVP, B12FOL, LACTIC, FT4, BMP #### [facility] [address] [place] [address] [employer] Operator: Tato Ibarra MD Bilirubin, Indirect 0.2 mg/dL Normal 0.0-1.[address] [facility] Comment on above: Performed By: #### O SMO, LD, MG, JESUS, TSHX, LIVP, B12FOL, LACTIC, FT4, BMP #### [address] [address] [employer] Operator: Tato Ibarra MD Bilirubin.indirect [Mass/Vol] 0.2 mg/dL Normal 0.0-0.[address] [facility] Comment on above: Performed By: #### O SMO, LD, MG, JESUS, TSHX, LIVP, B12FOL, LACTIC, FT4, BMP #### [address] [address] [employer] Operator: Tato Ibarra MD Globulin (S) [Mass/Vol] 1.4 g/dL Normal [facility] Comment on above: Performed By: #### O SMO, LD, MG, JESUS, TSHX, LIVP, B12FOL, LACTIC, FT4, BMP #### [facility] [employer] [address] [place] [phone] [employer] Operator: Tato Ibarra MD Protein [Mass/Vol] 3.8 g/dL Low 6.6-8.[address] [facility] Comment on above: Performed By: #### O SMO, LD, MG, JESUS, TSHX, LIVP, B12FOL, LACTIC, FT4, BMP #### [facility] [address] [place] [phone] [employer]: Tato Ibarra MD Lymphocytes Auto (Bld) [#/Vo l]on 01-06-2024 Lymphocytes (Bld) [#/Vol] 1.1 10 3/uL Low 1.2-3.8 [facility] Lymphocytes/100 WBC Auto (Bl d)on 01-06-2024 Lymphocytes/100 WBC (Bld) 13.6 % Low 20.5-60.0 [facility] MCH Auto (RBC) [Entitic mass ]on 01-06-2024 MCH (RBC) [Entitic mass] 30.9 pg 26.7-34.0 [facility] MCHC Auto (RBC) [Mass/Vol]on 01-06-2024 MCHC (RBC) [Mass/Vol] 31.4 g/dL 29.9-35.2 [facility] MCV Auto (RBC) [Entitic vol] on 01-06-2024 MCV (RBC) [Entitic vol] 98.5 fL 81.0-99.0 [facility] MRSA, DNA, Nasalon Specimen Description .NASAL SWAB Normal [facility] [place] Comment on above: Performed By: #### O SMO, LD, MG, JESUS, TSHX, LIVP, B12FOL, LACTIC, FT4, BMP #### [employer] [address] [place] [phone] [employer] Operator: Tato Ibarra MD Magnesiumon 01-06-2024 Magnesium [Mass/Vol] 1.9 mg/dL Normal 1.6-2.[address] [facility] Comment on above: Performed By: #### O SMO, LD, MG, JESUS, TSHX, LIVP, B12FOL, LACTIC, FT4, BMP #### [facility] [address] [place] [address] [employer] Operator: Tato Ibarra MD Monocytes Auto (Bld) [#/Vol] on 01-06-2024 Monocytes (Bld) [#/Vol] 0.4 10 3/uL 0.3-0.8 [facility] Monocytes/100 WBC Auto (Bld) on 01-06-2024 Monocytes/100 WBC (Bld) 5.6 % 1.7-12.0 [facility] Neutrophils Auto (Bld) [#/Vo l]on 01-06-2024 Neutrophils (Bld) [#/Vol] 6.1 10 3/uL 1.4-6.5 [facility] Neutrophils/100 WBC Auto (Bl d)on 01-06-2024 Neutrophils/100 WBC (Bld) 78.6 % High 43.0-75.0 [facility] No Panel Informationon 01-05 Eosinophils # (Auto) 0.1 10 3/uL 0.0-0.7 [facility] Immature Granulocyte # (Auto) 0.04 10 3/uL High 0.00-0.03 [facility] PTon 01-06-2024 INR Coag (PPP) [Relative time] 1.1 {INR} Normal [facility] Comment on above: Result Comment: Therapeutic Range: Moderate Anticoagulant Intensity: INR = 2.0-3.0 High Anticoagulant Intensity: INR = 2.5-3.5 Performed By: #### O SMO, LD, MG, JESUS, TSHX, LIVP, B12FOL, LACTIC, FT4, BMP #### [employer] [address] [place] [phone] [employer] Operator: Tato Ibarra MD PT Coag (PPP) [Time] 13.6 s Normal 11.7-14.[address] [facility] Comment on above: Performed By: #### O SMO, LD, MG, JESUS, TSHX, LIVP, B12FOL, LACTIC, FT4, BMP #### [employer] [address] [place] [phone] [employer] Operator: Tato Ibarra MD Platelet mean volume Auto (B ld) [Entitic vol]on 01-06-2024 Platelet mean volume (Bld) [Entitic vol] 10.6 fL 9.5-13.5 [facility] Platelets Auto (Bld) [#/Vol] on 01-06-2024 Platelets (Bld) [#/Vol] 261 10 3/uL 150-450 [facility] RBC Auto (Bld) [#/Vol]on RBC (Bld) [#/Vol] 1.94 10 6/uL Low 4.20-5.40 [facility] Serum or plasma albumin/glob ulin mass ratioon 01-06-2024 Albumin/Globulin [Mass ratio] 0.8 {ratio} [facility] Serum or plasma anion gap de terminationon 01-06-2024 Anion gap [Moles/Vol] 8.4 mmol/L [facility] Troponinon 01-06-2024 Troponin, High Sens 9 ng/L Normal 0-[address] [facility] Comment on above: Result Comment: High Sensitivity Troponin values cannot be compared with other Troponin methodologies. Performed By: #### P TT, PT #### [facility] [address] [place] [address] [phone] [employer]: Tato Ibarra MD Troponin, High Sens 9 ng/L Normal 0-[address] [facility] Comment on above: Result Comment: High Sensitivity Troponin values cannot be compared with other Troponin methodologies. Performed By: #### O SMO, LD, MG, JESUS, TSHX, LIVP, B12FOL, LACTIC, FT4, BMP #### [employer] [address] [place] [phone] [employer] Operator: Tato Ibarra MD Troponin, High Sens 8 ng/L Normal 0-[address] [facility] Comment on above: Result Comment: High Sensitivity Troponin values cannot be compared with other Troponin methodologies. Performed By: #### O SMO, LD, MG, JESUS, TSHX, LIVP, B12FOL, LACTIC, FT4, BMP #### [employer] [address] [place] [address] [phone] [employer]: Tato Ibarra MD Basic Metabolic Panelon 12-24 Anion gap [Moles/Vol] 9 mmol/L 9 - 16 mmol/L [facility] [employer] Calcium [Mass/Vol] 8.0 mg/dL Low 8.6 - 10.4 mg/dL [facility] [employer] Chloride [Moles/Vol] 103 mmol/L 98 - 107 mmol/L [facility] CO2 [Moles/Vol] 27 mmol/L 20 - 31 mmol/L [facility] Creatinine [Mass/Vol] 0.3 mg/dL Low 0.50 - 0.90 mg/dL [facility] Armando, Otis Ballard Rate - PINF [facility] Comment on above: These results are [...] [Mass/Vol] 85 mg/dL 74 - 99 mg/dL [facility] Interpretation and review of laboratory results Abnormal [facility] Potassium [Moles/Vol] 2.8 mmol/L Critically low 3.7 - 5.3 mmol/L [facility] Sodium [Moles/Vol] 139 mmol/L 136 - 145 mmol/L [facility] Urea nitrogen [Mass/Vol] 3 mg/dL Low 6 - 20 mg/dL [facility] Basic Metabolic Profon 01-04 Anion gap [Moles/Vol] 9 mmol/L Normal 9-[address] [facility] Comment on above: Performed By: #### O SMO, LD, MG, JESUS, TSHX, LIVP, B12FOL, LACTIC, FT4, BMP #### [facility] [place], [place] [phone] [employer] Operator: Tato Ibarra MD Calcium [Mass/Vol] 8.0 mg/dL Low 8.6-10.[address] [facility] Comment on above: Performed By: #### O SMO, LD, MG, JESUS, TSHX, LIVP, B12FOL, LACTIC, FT4, BMP #### [facility] [address] [place], [place] [phone] [employer] Operator: Tato Ibarra MD Chloride [Moles/Vol] 103 mmol/L Normal 98-[address] [facility] Comment on above: Performed By: #### O SMO, LD, MG, JESUS, TSHX, LIVP, B12FOL, LACTIC, FT4, BMP #### [facility] [employer] [address] [place] [address] [phone] [employer]: Tato Ibarra MD CO2 [Moles/Vol] 27 mmol/L Normal 20-[address] [facility] Comment on above: Performed By: #### O SMO, LD, MG, JESUS, TSHX, LIVP, B12FOL, LACTIC, FT4, BMP #### [facility] [address] [place] [address] [phone] [employer]: Tato Ibarra MD Creatinine [Mass/Vol] 0.3 mg/dL Low 0.50-0.[address] [facility] Comment on above: Performed By: #### O SMO, LD, MG, JESUS, TSHX, LIVP, B12FOL, LACTIC, FT4, BMP #### [address] [phone] [employer]: Tato Ibarra MD GFR/1.73 sq M.predicted among non-blacks MDRD (S/P/Bld) [Vol rate/Area] mL/min/{1.73_m2} Normal >[address] [facility] Comment [...] TSHX, LIVP, B12FOL, LACTIC, FT4, BMP #### [facility] [address] [place] [address] [phone] [employer] Operator: Tato Ibarra MD Glucose [Mass/Vol] 85 mg/dL Normal 74-[address] [facility] Comment on above: Performed By: #### O SMO, LD, MG, JESUS, TSHX, LIVP, B12FOL, LACTIC, FT4, BMP #### [facility] [facility] [address] [place] [address] [phone] [employer] Operator: Tato Ibarra MD Potassium [Moles/Vol] 2.8 mmol/L Critically low 3.7-5.[address] [facility] Comment on above: Performed By: #### O SMO, LD, MG, JESUS, TSHX, LIVP, B12FOL, LACTIC, FT4, BMP #### [facility] [address] [place] [address] [phone] [employer] Operator: Tato Ibarra MD Sodium [Moles/Vol] 139 mmol/L Normal 136-[address] [facility] Comment on above: Performed By: #### O SMO, LD, MG, JESUS, TSHX, LIVP, B12FOL, LACTIC, FT4, BMP #### [facility] [address] [place] [address] [phone] [employer] Operator: Tato Ibarra MD Urea nitrogen [Mass/Vol] 3 mg/dL Low 6-[address] [facility] Comment on above: Performed By: #### O SMO, LD, MG, JESUS, TSHX, LIVP, B12FOL, LACTIC, FT4, BMP #### [facility] [address] [place] [address] [phone] [employer] Operator: Tato Ibarra MD CBC with Auto Differentialon 01-05-2024 Basophils (Bld) [#/Vol] [facility] Basophils/100 WBC (Bld) 0 % 0 - 2 % [facility] [employer] Eosinophils (Bld) [#/Vol] 0.08 10*3/uL [facility] Eosinophils/100 WBC (Bld) 2 % 1 - 4 % [facility] Erythrocyte distribution width (RBC) [Ratio] 19.8 % High 11.8 - 14.4 % [facility] Hematocrit (Bld) [Volume fraction] 27.3 % Low 36.3 - 47.1 % [facility] Hemoglobin (Bld) [Mass/Vol] 8.5 g/dL Low 11.9 - 15.1 g/dL [facility] Immature granulocytes (Bld) [#/Vol] [facility] Immature granulocytes/100 WBC (Bld) 0 % 0 [facility] Interpretation and review of laboratory results Abnormal [facility] Lymphocytes/100 WBC (Bld) 28 % 24 - 43 % [facility] Lymphocytes/100 WBC (Bld) 1.45 % [facility] MCH (RBC) [Entitic mass] 30.5 pg 25.2 - 33.5 pg [facility] MCHC (RBC) [Mass/Vol] 31.1 g/dL 28.4 - 34.8 g/dL [facility] MCV (RBC) [Entitic vol] 97.8 fL 82.6 - 102.9 fL [facility] Monocytes/100 WBC (Bld) 10 % 3 - 12 % [facility] Monocytes/100 WBC (Bld) 0.51 % [facility] Neutrophils/100 WBC (Bld) 60 % 36 - 65 % [facility] Nucleated RBC/100 WBC (Bld) [Ratio] 0.0 % 0.0 per 100 WBC [facility] Platelet mean volume (Bld) [Entitic vol] 10.1 fL 8.1 - 13.5 fL [facility] Platelets (Bld) [#/Vol] 227 10*3/uL [facility] RBC (Bld) [#/Vol] 2.79 10*6/uL Low 3.95 - 5.11 m/uL [facility] RBC (Bld) [#/Vol] ANISOCYTOSIS PRESENT [facility] Segmented neutrophils/100 WBC (Bld) 3.15 % [facility] WBC other (Bld) [#/Vol] 5.2 [facility] CBC with Diffon 01-05-2024 Abs. Basophil <0.03 Normal 0.00-0.[address] [facility] Comment on above: Performed By: #### O SMO, LD, MG, JESUS, TSHX, LIVP, B12FOL, LACTIC, FT4, BMP #### [place] [address] [employer]: Tato Ibarra MD Abs.Imm.Granulocyte <0.03 Normal 0.00-0.[address] [facility] Comment on above: Performed By: #### O SMO, LD, MG, JESUS, TSHX, LIVP, B12FOL, LACTIC, FT4, BMP #### [place] [address] [employer] Operator: Tato Ibarra MD Abs.Neutrophil (Seg) 3.15 k/uL Normal 1.50-8.[address] [facility] Comment on above: Performed By: #### O SMO, LD, MG, JESUS, TSHX, LIVP, B12FOL, LACTIC, FT4, BMP #### [place] [address] [employer] Operator: Tato Ibarra MD Basophils/100 WBC (Bld) 0 % Normal 0-[address] [facility] Comment on above: Performed By: #### O SMO, LD, MG, JESUS, TSHX, LIVP, B12FOL, LACTIC, FT4, BMP #### [place] [address] [employer] Operator: Tato Ibarra MD Eosinophils (Bld) [#/Vol] 0.08 10*3/uL Normal 0.00-0.[address] [facility] Comment on above: Performed By: #### O SMO, LD, MG, JESUS, TSHX, LIVP, B12FOL, LACTIC, FT4, BMP #### [address] [address] [employer]: Tato Ibarra MD Eosinophils/100 WBC (Bld) 2 % Normal 1-[address] [facility] Comment on above: Performed By: #### O SMO, LD, MG, JESUS, TSHX, LIVP, B12FOL, LACTIC, FT4, BMP #### [address] [phone] [employer]: Tato Ibarra MD Erythrocyte distribution width (RBC) [Ratio] 19.8 % High 11.8-14.[address] [facility] Comment on above: Performed By: #### O SMO, LD, MG, JESUS, TSHX, LIVP, B12FOL, LACTIC, FT4, BMP #### [address] [phone] [employer]: Tato Ibarra MD Hematocrit (Bld) [Volume fraction] 27.3 % Low 36.3-47.[address] [facility] Comment on above: Performed By: #### O SMO, LD, MG, JESUS, TSHX, LIVP, B12FOL, LACTIC, FT4, BMP #### [address] [phone] [employer]: Tato Ibarra MD Hemoglobin (Bld) [Mass/Vol] 8.5 g/dL Low 11.9-15.[address] [facility] Comment on above: Performed By: #### O SMO, LD, MG, JESUS, TSHX, LIVP, B12FOL, LACTIC, FT4, BMP #### [address] [phone] [employer]: Tato Ibarra MD Immature granulocytes/100 WBC (Bld) 0 % Normal [address] [facility] Comment on above: Performed By: #### O SMO, LD, MG, JESUS, TSHX, LIVP, B12FOL, LACTIC, FT4, BMP #### [address] [phone] [employer]: Tato Ibarra MD Lymphocytes (Bld) [#/Vol] 1.45 10*3/uL Normal 1.10-3.[address] [facility] Comment on above: Performed By: #### O SMO, LD, MG, JESUS, TSHX, LIVP, B12FOL, LACTIC, FT4, BMP #### [address] [phone] [employer]: Tato Ibarra MD Lymphocytes/100 WBC (Bld) 28 % Normal 24-[address] [facility] Comment on above: Performed By: #### O SMO, LD, MG, JESUS, TSHX, LIVP, B12FOL, LACTIC, FT4, BMP #### [address] [phone] [employer]: Tato Ibarra MD MCH (RBC) [Entitic mass] 30.5 pg Normal 25.2-33.[address] [facility] Comment on above: Performed By: #### O SMO, LD, MG, JESUS, TSHX, LIVP, B12FOL, LACTIC, FT4, BMP #### [place] [address] [employer] Operator: Tato Ibarra MD MCHC (RBC) [Mass/Vol] 31.1 g/dL Normal 28.4-34.[address] [facility] Comment on above: Performed By: #### O SMO, LD, MG, JESUS, TSHX, LIVP, B12FOL, LACTIC, FT4, BMP #### [address] [phone] [employer]: Tato Ibarra MD MCV (RBC) [Entitic vol] 97.8 fL Normal 82.6-102.[address] [facility] Comment on above: Performed By: #### O SMO, LD, MG, JESUS, TSHX, LIVP, B12FOL, LACTIC, FT4, BMP #### [address] [phone] [employer]: Tato Ibarra MD Monocytes (Bld) [#/Vol] 0.51 10*3/uL Normal 0.10-1.[address] [facility] Comment on above: Performed By: #### O SMO, LD, MG, JESUS, TSHX, LIVP, B12FOL, LACTIC, FT4, BMP #### [address] [address] [employer] Operator: Tato Ibarra MD Monocytes/100 WBC (Bld) 10 % Normal 3-[address] [facility] Comment on above: Performed By: #### O SMO, LD, MG, JESUS, TSHX, LIVP, B12FOL, LACTIC, FT4, BMP #### [address] [address] [employer]: Tato Ibarra MD Neutrophil (Seg) 60 % Normal 36-65 [facility] Comment on above: Performed By: #### O SMO, LD, MG, JESUS, TSHX, LIVP, B12FOL, LACTIC, FT4, BMP #### [address] [address] [employer] Operator: Tato Ibarra MD NRBC Automated 0.0 per 100 WBC Normal 0.[address] [facility] Comment on above: Performed By: #### O SMO, LD, MG, JESUS, TSHX, LIVP, B12FOL, LACTIC, FT4, BMP #### [address] [address] [employer]: Tato Ibarra MD Platelet mean volume (Bld) [Entitic vol] 10.1 fL Normal 8.1-13.[address] [facility] Comment on above: Performed By: #### O SMO, LD, MG, JESUS, TSHX, LIVP, B12FOL, LACTIC, FT4, BMP #### [address] [address] [employer] Operator: Taot Ibarra MD Platelets (Bld) [#/Vol] 227 10*3/uL Normal 138-[address] [facility] Comment on above: Performed By: #### O SMO, LD, MG, JESUS, TSHX, LIVP, B12FOL, LACTIC, FT4, BMP #### [facility] [address] [place] [address] [employer]: Tato Ibarra MD RBC (Bld) [#/Vol] 2.79 10*6/uL Low 3.95-5.[address] [facility] Comment on above: Performed By: #### O SMO, LD, MG, JESUS, TSHX, LIVP, B12FOL, LACTIC, FT4, BMP #### [facility] [address] [place] [address] [phone] [employer] Operator: Tato Ibarra MD RBC morphology finding Nom (Bld) ANISOCYTOSIS PRESENT Normal [facility] Comment on above: Performed By: #### O SMO, LD, MG, JESUS, TSHX, LIVP, B12FOL, LACTIC, FT4, BMP #### [address] [phone] [employer]: Tato Ibarra MD WBC (Bld) [#/Vol] 5.2 10*3/uL Normal 3.5-11.[address] [facility] Comment on above: Performed By: #### O SMO, LD, MG, JESUS, TSHX, LIVP, B12FOL, LACTIC, FT4, BMP #### [address] [address] [employer]: Tato Ibarra MD Hemoglobin and Hematocriton 01-05-2024 Interpretation and review of laboratory results Abnormal [facility] Hgb/Hcton 01-05-2024 Hematocrit (Bld) [Volume fraction] 29.3 % Low 36.3-47.1 [facility] Comment on above: Performed By: #### O SMO, LD, MG, JESUS, TSHX, LIVP, B12FOL, LACTIC, FT4, BMP #### [facility] [employer] [address] [place] [address] [phone] [employer]: Tato Ibarra MD Hemoglobin (Bld) [Mass/Vol] 9.4 g/dL Low 11.9-15.1 [facility] Comment on above: Performed By: #### O SMO, LD, MG, JESUS, TSHX, LIVP, B12FOL, LACTIC, FT4, BMP #### [facility] [address] [place], [place] [phone] [employer]: Tato Ibarra MD K (Potassium)on 01-05-2024 Potassium [Moles/Vol] 3.4 mmol/L Low 3.7-5.[address] [facility] Comment on above: Performed By: #### O SMO, LD, MG, JESUS, TSHX, LIVP, B12FOL, LACTIC, FT4, BMP #### [facility] [address] [place] [address] [employer] Operator: Tato Ibarra MD Potassiumon 01-05-2024 Interpretation and review of laboratory results Abnormal [facility] Potassium [Moles/Vol] 3.4 mmol/L Low 3.7 - 5.3 mmol/L [facility] Basic Metabolic Panelon 12-24 Anion gap [Moles/Vol] 10 mmol/L 9 - 16 mmol/L [facility] Calcium [Mass/Vol] 8.0 mg/dL Low 8.6 - 10.4 mg/dL [facility] Chloride [Moles/Vol] 104 mmol/L 98 - 107 mmol/L [facility] CO2 [Moles/Vol] 24 mmol/L 20 - 31 mmol/L [facility] Creatinine [Mass/Vol] 0.3 mg/dL Low 0.50 - 0.90 mg/dL [facility] Est, Glom Filt Rate - PINF [facility] Comment on above: These results are [...] [Mass/Vol] 97 mg/dL 74 - 99 mg/dL [facility] Interpretation and review of laboratory results Abnormal [facility] Potassium [Moles/Vol] 3.1 mmol/L Low 3.7 - 5.3 mmol/L [facility] Sodium [Moles/Vol] 138 mmol/L 136 - 145 mmol/L [facility] Urea nitrogen [Mass/Vol] 3 mg/dL Low 6 - 20 mg/dL [facility] Basic Metabolic Profon 01-03 Anion gap [Moles/Vol] 10 mmol/L Normal 9-[address] [facility] Comment on above: Performed By: #### O SMO, LD, MG, JESUS, TSHX, LIVP, B12FOL, LACTIC, FT4, BMP #### [facility] [employer] [address] [place] [phone] [employer]: Tato Ibarra MD Calcium [Mass/Vol] 8.0 mg/dL Low 8.6-10.[address] [facility] Comment on above: Performed By: #### O SMO, LD, MG, JESUS, TSHX, LIVP, B12FOL, LACTIC, FT4, BMP #### [facility] [employer] [address] [place] [address] [employer]: Tato Ibarra MD Chloride [Moles/Vol] 104 mmol/L Normal 98-[address] [facility] Comment on above: Performed By: #### O SMO, LD, MG, JESUS, TSHX, LIVP, B12FOL, LACTIC, FT4, BMP #### [facility] [address] [place] [address] [employer]: Tato Ibarra MD CO2 [Moles/Vol] 24 mmol/L Normal 20-[address] [facility] Comment on above: Performed By: #### O SMO, LD, MG, JESUS, TSHX, LIVP, B12FOL, LACTIC, FT4, BMP #### [facility] [address] [place] [address] [phone] [employer]: Tato Ibarra MD Creatinine [Mass/Vol] 0.3 mg/dL Low 0.50-0.[address] [facility] Comment on above: Performed By: #### O SMO, LD, MG, JESUS, TSHX, LIVP, B12FOL, LACTIC, FT4, BMP #### [address] [phone] [employer]: Tato Ibarra MD GFR/1.73 sq M.predicted among non-blacks MDRD (S/P/Bld) [Vol rate/Area] mL/min/{1.73_m2} Normal >[address] [facility] Comment [...] TSHX, LIVP, B12FOL, LACTIC, FT4, BMP #### [address] [address] [employer]: Tato Ibarra MD Glucose [Mass/Vol] 97 mg/dL Normal 74-[address] [facility] Comment on above: Performed By: #### O SMO, LD, MG, JESUS, TSHX, LIVP, B12FOL, LACTIC, FT4, BMP #### [address] [address] [employer]: Tato Ibarra MD Potassium [Moles/Vol] 3.1 mmol/L Low 3.7-5.[address] [facility] Comment on above: Performed By: #### O SMO, LD, MG, JESUS, TSHX, LIVP, B12FOL, LACTIC, FT4, BMP #### [address] [phone] [employer]: Tato Ibarra MD Sodium [Moles/Vol] 138 mmol/L Normal 136-[address] [facility] Comment on above: Performed By: #### O SMO, LD, MG, JESUS, TSHX, LIVP, B12FOL, LACTIC, FT4, BMP #### [facility] [address] [place], [place] [phone] [employer] Operator: Tato Ibarra MD Urea nitrogen [Mass/Vol] 3 mg/dL Low 6-[address] [facility] Comment on above: Performed By: #### O SMO, LD, MG, JESUS, TSHX, LIVP, B12FOL, LACTIC, FT4, BMP #### [facility] [address] [place], [place] [phone] [employer] Operator: Tato Ibarra MD CBC with Auto Differentialon 01-04-2024 Basophils (Bld) [#/Vol] 0.00 10*3/uL [facility] Basophils/100 WBC (Bld) 0 % 0 - 2 % [facility] Eosinophils (Bld) [#/Vol] 0.07 10*3/uL [facility] Eosinophils/100 WBC (Bld) 1 % 1 - 4 % [facility] Erythrocyte distribution width (RBC) [Ratio] 21.1 % High 11.8 - 14.4 % [facility] Hematocrit (Bld) [Volume fraction] 27.7 % Low 36.3 - 47.1 % [facility] Hemoglobin (Bld) [Mass/Vol] 8.8 g/dL Low 11.9 - 15.1 g/dL [facility] Immature granulocytes (Bld) [#/Vol] 0.07 10*3/uL [facility] Immature granulocytes/100 WBC (Bld) 1 % High 0 [facility] Interpretation and review of laboratory results Abnormal [facility] Lymphocytes/100 WBC (Bld) 16 % Low 24 - 43 % [facility] Lymphocytes/100 WBC (Bld) 1.09 % Low [facility] MCH (RBC) [Entitic mass] 31.3 pg 25.2 - 33.5 pg [facility] MCHC (RBC) [Mass/Vol] 31.8 g/dL 28.4 - 34.8 g/dL [facility] MCV (RBC) [Entitic vol] 98.6 fL 82.6 - 102.9 fL [facility] Monocytes/100 WBC (Bld) 11 % 3 - 12 % [facility] Monocytes/100 WBC (Bld) 0.75 % [facility] Morphology Ritesh (Bld) [Interp] ANISOCYTOSIS PRESENT [facility] Neutrophils/100 WBC (Bld) 71 % High 36 - 65 % [facility] Nucleated RBC/100 WBC (Bld) [Ratio] 0.0 % 0.0 per 100 WBC [facility] Platelet mean volume (Bld) [Entitic vol] 9.4 fL 8.1 - 13.5 fL [facility] Platelets (Bld) [#/Vol] 234 10*3/uL [facility] RBC (Bld) [#/Vol] 2.81 10*6/uL Low 3.95 - 5.11 m/uL [facility] Segmented neutrophils/100 WBC (Bld) 4.82 % [facility] WBC other (Bld) [#/Vol] 6.8 [facility] CBC with Diffon 01-04-2024 Abs. Basophil 0.00 k/uL Normal 0.00-0.[address] [facility] Comment on above: Performed By: #### O SMO, LD, MG, JESUS, TSHX, LIVP, B12FOL, LACTIC, FT4, BMP #### [employer] [address] [place] [address] [employer] Operator: Tato Ibarra MD Abs.Imm.Granulocyte 0.07 k/uL Normal 0.00-0.[address] [facility] Comment on above: Performed By: #### O SMO, LD, MG, JESUS, TSHX, LIVP, B12FOL, LACTIC, FT4, BMP #### [employer] [address] [place] [address] [employer] Operator: Tato Ibarra MD Abs.Neutrophil (Seg) 4.82 k/uL Normal 1.50-8.[address] [facility] Comment on above: Performed By: #### O SMO, LD, MG, JESUS, TSHX, LIVP, B12FOL, LACTIC, FT4, BMP #### [address] [address] [employer]: Tato Ibarra MD Basophils/100 WBC (Bld) 0 % Normal 0-[address] [facility] Comment on above: Performed By: #### O SMO, LD, MG, JESUS, TSHX, LIVP, B12FOL, LACTIC, FT4, BMP #### [address] [address] [employer]: Tato Ibarra MD Eosinophils (Bld) [#/Vol] 0.07 10*3/uL Normal 0.00-0.[address] [facility] Comment on above: Performed By: #### O SMO, LD, MG, JESUS, TSHX, LIVP, B12FOL, LACTIC, FT4, BMP #### [address] [address] [employer]: Tato Ibarra MD Eosinophils/100 WBC (Bld) 1 % Normal 1-[address] [facility] Comment on above: Performed By: #### O SMO, LD, MG, JESUS, TSHX, LIVP, B12FOL, LACTIC, FT4, BMP #### [address] [address] [employer]: Tato Ibarra MD Immature granulocytes/100 WBC (Bld) 1 % High [address] [facility] Comment on above: Performed By: #### O SMO, LD, MG, JESUS, TSHX, LIVP, B12FOL, LACTIC, FT4, BMP #### [address] [address] [employer]: Tato Ibarra MD Lymphocytes (Bld) [#/Vol] 1.09 10*3/uL Low 1.10-3.[address] [facility] Comment on above: Performed By: #### O SMO, LD, MG, JESUS, TSHX, LIVP, B12FOL, LACTIC, FT4, BMP #### [facility] [address] [place] [address] [phone] [employer]: Tato Ibarra MD Lymphocytes/100 WBC (Bld) 16 % Low 24-[address] [facility] Comment on above: Performed By: #### O SMO, LD, MG, JESUS, TSHX, LIVP, B12FOL, LACTIC, FT4, BMP #### [address] [address] [employer]: Tato Ibarra MD Monocytes (Bld) [#/Vol] 0.75 10*3/uL Normal 0.10-1.[address] [facility] Comment on above: Performed By: #### O SMO, LD, MG, JESUS, TSHX, LIVP, B12FOL, LACTIC, FT4, BMP #### [address] [address] [employer]: Tato Ibarra MD Monocytes/100 WBC (Bld) 11 % Normal 3-[address] [facility] Comment on above: Performed By: #### O SMO, LD, MG, JESUS, TSHX, LIVP, B12FOL, LACTIC, FT4, BMP #### [facility] [address] [place] [address] [employer] Operator: Tato Ibarra MD Morphology Ritesh (Bld) [Interp] ANISOCYTOSIS PRESENT Normal [facility] Comment on above: Performed By: #### O SMO, LD, MG, JESUS, TSHX, LIVP, B12FOL, LACTIC, FT4, BMP #### [address] [address] [employer]: Tato Ibarra MD Neutrophil (Seg) 71 % High 36-65 [facility] Comment on above: Performed By: #### O SMO, LD, MG, JESUS, TSHX, LIVP, B12FOL, LACTIC, FT4, BMP #### [facility] [address] [place] [address] [phone] [employer]: Tato Ibarra MD Erythrocyte distribution width (RBC) [Ratio] 21.1 % High 11.8-14.[address] [facility] Comment on above: Performed By: #### O SMO, LD, MG, JESUS, TSHX, LIVP, B12FOL, LACTIC, FT4, BMP #### [address] [phone] [employer]: Tato Ibarra MD Hematocrit (Bld) [Volume fraction] 27.7 % Low 36.3-47.[address] [facility] Comment on above: Performed By: #### O SMO, LD, MG, JESUS, TSHX, LIVP, B12FOL, LACTIC, FT4, BMP #### [address] [phone] [employer]: Tato Ibarra MD Hemoglobin (Bld) [Mass/Vol] 8.8 g/dL Low 11.9-15.[address] [facility] Comment on above: Performed By: #### O SMO, LD, MG, JESUS, TSHX, LIVP, B12FOL, LACTIC, FT4, BMP #### [facility] [address] [place] [address] [employer]: Tato Ibarra MD MCH (RBC) [Entitic mass] 31.3 pg Normal 25.2-33.[address] [facility] Comment on above: Performed By: #### O SMO, LD, MG, JESUS, TSHX, LIVP, B12FOL, LACTIC, FT4, BMP #### [facility] [employer] [address] [place] [phone] [employer]: Tato Ibarra MD MCHC (RBC) [Mass/Vol] 31.8 g/dL Normal 28.4-34.[address] [facility] Comment on above: Performed By: #### O SMO, LD, MG, JESUS, TSHX, LIVP, B12FOL, LACTIC, FT4, BMP #### [address] [address] [employer]: Tato Ibarra MD MCV (RBC) [Entitic vol] 98.6 fL Normal 82.6-102.[address] [facility] Comment on above: Performed By: #### O SMO, LD, MG, JESUS, TSHX, LIVP, B12FOL, LACTIC, FT4, BMP #### [address] [address] [employer]: Tato Ibarra MD NRBC Automated 0.0 per 100 WBC Normal 0.[address] [facility] Comment on above: Performed By: #### O SMO, LD, MG, JESUS, TSHX, LIVP, B12FOL, LACTIC, FT4, BMP #### [address] [address] [employer]: Tato Ibarra MD Platelet mean volume (Bld) [Entitic vol] 9.4 fL Normal 8.1-13.[address] [facility] Comment on above: Performed By: #### O SMO, LD, MG, JESUS, TSHX, LIVP, B12FOL, LACTIC, FT4, BMP #### [facility] [address] [place] [address] [employer]: Tato Ibarra MD Platelets (Bld) [#/Vol] 234 10*3/uL Normal 138-[address] [facility] Comment on above: Performed By: #### O SMO, LD, MG, JESUS, TSHX, LIVP, B12FOL, LACTIC, FT4, BMP #### [address] [address] [employer]: Tato Ibarra MD RBC (Bld) [#/Vol] 2.81 10*6/uL Low 3.95-5.[address] [facility] Comment on above: Performed By: #### O SMO, LD, MG, JESUS, TSHX, LIVP, B12FOL, LACTIC, FT4, BMP #### [facility] [address] [place] [address] [phone] [employer]: Tato Ibarra MD WBC (Bld) [#/Vol] 6.8 10*3/uL Normal 3.5-11.[address] [facility] Comment on above: Performed By: #### O SMO, LD, MG, JESUS, TSHX, LIVP, B12FOL, LACTIC, FT4, BMP #### [facility] [employer] [address] [place] [phone] [employer]: Tato Ibarra MD Hemoglobin and Hematocriton 01-04-2024 Hematocrit (Bld) [Volume fraction] 27.8 % Low 36.3 - 47.1 % [facility] Hemoglobin (Bld) [Mass/Vol] 8.9 g/dL Low 11.9 - 15.1 g/dL [facility] Interpretation and review of laboratory results Abnormal [facility] Hgb/Hcton 01-04-2024 Hematocrit (Bld) [Volume fraction] 27.8 % Low 36.3-47.[address] [facility] Comment on above: Performed By: #### O SMO, LD, MG, JESUS, TSHX, LIVP, B12FOL, LACTIC, FT4, BMP #### [facility] [address] [place] [address] [phone] [employer]: Tato Ibarra MD Hemoglobin (Bld) [Mass/Vol] 8.9 g/dL Low 11.9-15.[address] [facility] Comment on above: Performed By: #### O SMO, LD, MG, JESUS, TSHX, LIVP, B12FOL, LACTIC, FT4, BMP #### [facility] [address] [place] [address] [employer]: Tato Ibarra MD Basic Metab w/rfx MGon 01-02 Anion gap [Moles/Vol] 10 mmol/L Normal 9-[address] [facility] Comment on above: Performed By: #### P TT, PT #### [address] [address] [employer]: Tato Ibarra MD Calcium [Mass/Vol] 8.2 mg/dL Low 8.6-10.[address] [facility] Comment on above: Performed By: #### P TT, PT #### [address] [address] [employer]: Tato Ibarra MD Chloride [Moles/Vol] 106 mmol/L Normal 98-[address] [facility] Comment on above: Performed By: #### P TT, PT #### [address] [address] [employer]: Tato Ibarra MD CO2 [Moles/Vol] 24 mmol/L Normal 20-[address] [facility] Comment on above: Performed By: #### P TT, PT #### [address] [address] [employer]: Tato Ibarra MD Creatinine [Mass/Vol] 0.3 mg/dL Low 0.50-0.[address] [facility] Comment on above: Performed By: #### P TT, PT #### [address] [address] [employer]: Tato Ibarra MD GFR/1.73 sq M.predicted among non-blacks MDRD (S/P/Bld) [Vol rate/Area] mL/min/{1.73_m2} Normal >[address] [facility] Comment [...] By: #### P TT, PT #### [facility] [address] [address] [employer]: Tato Ibarra MD Glucose [Mass/Vol] 95 mg/dL Normal 74-[address] [facility] Comment on above: Performed By: #### P TT, PT #### [facility] [address] [place] [id number] [employer]: Tato Ibarra MD Potassium [Moles/Vol] 3.4 mmol/L Low 3.7-5.[address] [facility] Comment on above: Performed By: #### P TT, PT #### [facility] [address] [place] [id number] [employer]: Tato Ibarra MD Sodium [Moles/Vol] 140 mmol/L Normal 136-[address] [facility] Comment on above: Performed By: #### P TT, PT #### [facility] [address] [place] [id number] [employer]: Tato Ibarra MD Urea nitrogen [Mass/Vol] 3 mg/dL Low 6-[address] [facility] Comment on above: Performed By: #### P TT, PT #### [employer] [address] [place] [id number] [employer]: Tato Ibarra MD Basic Metabolic Panel w/ Ref jacinto to MGon 01-03-2024 Anion gap [Moles/Vol] 10 mmol/L 9 - 16 mmol/L [facility] Calcium [Mass/Vol] 8.2 mg/dL Low 8.6 - 10.4 mg/dL [facility] Chloride [Moles/Vol] 106 mmol/L 98 - 107 mmol/L [facility] CO2 [Moles/Vol] 24 mmol/L 20 - 31 mmol/L [facility] Creatinine [Mass/Vol] 0.3 mg/dL Low 0.50 - 0.90 mg/dL [facility] Otis Maciel Rate - PINF [facility] Comment on above: These results are [...] [Mass/Vol] 95 mg/dL 74 - 99 mg/dL [facility] Interpretation and review of laboratory results Abnormal [facility] Potassium [Moles/Vol] 3.4 mmol/L Low 3.7 - 5.3 mmol/L [facility] Sodium [Moles/Vol] 140 mmol/L 136 - 145 mmol/L [facility] Urea nitrogen [Mass/Vol] 3 mg/dL Low 6 - 20 mg/dL [facility] CBCon 01-03-2024 Erythrocyte distribution width (RBC) [Ratio] 22.1 % High 11.8 - 14.4 % [facility] Hematocrit (Bld) [Volume fraction] 26.2 % Low 36.3 - 47.1 % [facility] Hemoglobin (Bld) [Mass/Vol] 9.0 g/dL Low 11.9 - 15.1 g/dL [facility] Interpretation and review of laboratory results Abnormal [facility] MCH (RBC) [Entitic mass] 31.9 pg 25.2 - 33.5 pg [facility] MCHC (RBC) [Mass/Vol] 34.4 g/dL 28.4 - 34.8 g/dL [facility] MCV (RBC) [Entitic vol] 92.9 fL 82.6 - 102.9 fL [facility] Nucleated RBC/100 WBC (Bld) [Ratio] 0.0 % 0.0 per 100 WBC [facility] Platelet mean volume (Bld) [Entitic vol] 9.6 fL 8.1 - 13.5 fL [facility] Platelets (Bld) [#/Vol] 219 10*3/uL [facility] RBC (Bld) [#/Vol] 2.82 10*6/uL Low 3.95 - 5.11 m/uL [facility] WBC other (Bld) [#/Vol] 8.4 [facility] Erythrocyte distribution width (RBC) [Ratio] 22.1 % High 11.8-14.[address] [facility] Comment on above: Performed By: #### O SMO, LD, MG, JESUS, TSHX, LIVP, B12FOL, LACTIC, FT4, BMP #### [facility] [address] [place] [address] [phone] [employer]: Tato Ibarra MD Hematocrit (Bld) [Volume fraction] 26.2 % Low 36.3-47.[address] [facility] Comment on above: Performed By: #### O SMO, LD, MG, JESUS, TSHX, LIVP, B12FOL, LACTIC, FT4, BMP #### [facility] [address] [place] [phone] [employer] Operator: Tato Iabrra MD Hemoglobin (Bld) [Mass/Vol] 9.0 g/dL Low 11.9-15.[address] [facility] Comment on above: Performed By: #### O SMO, LD, MG, JESUS, TSHX, LIVP, B12FOL, LACTIC, FT4, BMP #### [employer] [address] [place] [phone] [employer] Operator: Tato Ibarra MD MCH (RBC) [Entitic mass] 31.9 pg Normal 25.2-33.[address] [facility] Comment on above: Performed By: #### O SMO, LD, MG, JESUS, TSHX, LIVP, B12FOL, LACTIC, FT4, BMP #### [employer] [address] [place] [phone] [employer] Operator: Tato Ibarra MD MCHC (RBC) [Mass/Vol] 34.4 g/dL Normal 28.4-34.[address] [facility] Comment on above: Performed By: #### O SMO, LD, MG, JESUS, TSHX, LIVP, B12FOL, LACTIC, FT4, BMP #### [address] [address] [employer] Operator: Tato Ibarra MD MCV (RBC) [Entitic vol] 92.9 fL Normal 82.6-102.[address] [facility] Comment on above: Performed By: #### O SMO, LD, MG, JESUS, TSHX, LIVP, B12FOL, LACTIC, FT4, BMP #### [address] [address] [employer] Operator: Tato Ibarra MD NRBC Automated 0.0 per 100 WBC Normal 0.[address] [facility] Comment on above: Performed By: #### O SMO, LD, MG, JESUS, TSHX, LIVP, B12FOL, LACTIC, FT4, BMP #### [facility] [employer] [address] [place] [phone] [employer] Operator: Tato Ibarra MD Platelet mean volume (Bld) [Entitic vol] 9.6 fL Normal 8.1-13.[address] [facility] Comment on above: Performed By: #### O SMO, LD, MG, JESUS, TSHX, LIVP, B12FOL, LACTIC, FT4, BMP #### [facility] [employer] [address] [place] [phone] [employer] Operator: Tato Ibarra MD Platelets (Bld) [#/Vol] 219 10*3/uL Normal 138-[address] [facility] Comment on above: Performed By: #### O SMO, LD, MG, JESUS, TSHX, LIVP, B12FOL, LACTIC, FT4, BMP #### [address] [phone] [employer] Operator: Tato Ibarra MD RBC (Bld) [#/Vol] 2.82 10*6/uL Low 3.95-5.[address] [facility] Comment on above: Performed By: #### O SMO, LD, MG, JESUS, TSHX, LIVP, B12FOL, LACTIC, FT4, BMP #### [facility] [address] [place], [place] [phone] [employer] Operator: Tato Ibarra MD WBC (Bld) [#/Vol] 8.4 10*3/uL Normal 3.5-11.[address] [facility] Comment on above: Performed By: #### O SMO, LD, MG, JESUS, TSHX, LIVP, B12FOL, LACTIC, FT4, BMP #### [facility] [place] [address] [employer] Operator: Tato Ibarra MD CBC with Auto Differentialon 01-03-2024 Basophils (Bld) [#/Vol] 0.00 10*3/uL [facility] Basophils/100 WBC (Bld) 0 % 0 [...] Immature granulocytes/100 WBC (Bld) 0 % 0 [facility] Interpretation and review of laboratory results Abnormal [facility] Lymphocytes/100 WBC (Bld) 17 % Low 24 - 43 % [facility] Lymphocytes/100 WBC (Bld) 1.24 % [facility] MCH (RBC) [Entitic mass] 31.6 pg 25.2 - 33.5 pg [facility] MCHC (RBC) [Mass/Vol] 33.7 g/dL 28.4 - 34.8 g/dL [facility] MCV (RBC) [Entitic vol] 93.8 fL 82.6 - 102.9 fL [facility] Monocytes/100 WBC (Bld) 9 % 3 - 12 % [facility] Monocytes/100 WBC (Bld) 0.66 % [facility] Morphology Ritesh (Bld) [Interp] ANISOCYTOSIS PRESENT [facility] Neutrophils/100 WBC (Bld) 74 % High 36 - 65 % [facility] Nucleated RBC/100 WBC (Bld) [Ratio] 0.0 % 0.0 per 100 WBC [facility] Platelet mean volume (Bld) [Entitic vol] 9.7 fL 8.1 - 13.5 fL [facility] Platelets (Bld) [#/Vol] 220 10*3/uL [facility] RBC (Bld) [#/Vol] 2.72 10*6/uL Low 3.95 - 5.11 m/uL [facility] Segmented neutrophils/100 WBC (Bld) 5.40 % [facility] WBC other (Bld) [#/Vol] 7.3 [facility] CBC with Diffon 01-03-2024 Abs. Basophil 0.00 k/uL Normal 0.00-0.[address] [facility] Comment on above: Performed By: #### P TT, PT #### [facility] [address] [place] [phone] [employer] Operator: Tato Ibarra MD Abs.Imm.Granulocyte 0.00 k/uL Normal 0.00-0.[address] [facility] Comment on above: Performed By: #### P TT, PT #### [employer] [address] [place] [address] [phone] [employer] Operator: Tato Ibarra MD Abs.Neutrophil (Seg) 5.40 k/uL Normal 1.50-8.[address] [facility] Comment on above: Performed By: #### P TT, PT #### [place] [address] [employer] Operator: Tato Ibarra MD Basophils/100 WBC (Bld) 0 % Normal 0-[address] [facility] Comment on above: Performed By: #### P TT, PT #### [place] [address] [employer] Operator: Tato Ibarra MD Eosinophils (Bld) [#/Vol] 0.00 10*3/uL Normal 0.00-0.[address] [facility] Comment on above: Performed By: #### P TT, PT #### [place] [address] [employer] Operator: Tato Ibarra MD Eosinophils/100 WBC (Bld) 0 % Low 1-[address] [facility] Comment on above: Performed By: #### P TT, PT #### [place] [address] [employer] Operator: Tato Ibarra MD Immature granulocytes/100 WBC (Bld) 0 % Normal [address] [facility] Comment on above: Performed By: #### P TT, PT #### [place] [address] [employer] Operator: Tato Ibarra MD Lymphocytes (Bld) [#/Vol] 1.24 10*3/uL Normal 1.10-3.[address] [facility] Comment on above: Performed By: #### P TT, PT #### [place] [address] [employer] Operator: Tato Ibarra MD Lymphocytes/100 WBC (Bld) 17 % Low 24-[address] [facility] Comment on above: Performed By: #### P TT, PT #### [address] [address] [employer] Operator: Tato Ibarra MD Monocytes (Bld) [#/Vol] 0.66 10*3/uL Normal 0.10-1.[address] [facility] Comment on above: Performed By: #### P TT, PT #### [address] [address] [employer] Operator: Tato Ibarra MD Monocytes/100 WBC (Bld) 9 % Normal 3-[address] [facility] Comment on above: Performed By: #### P TT, PT #### [address] [address] [employer] Operator: Tato Ibarra MD Morphology Ritesh (Bld) [Interp] ANISOCYTOSIS PRESENT Normal [facility] Comment on above: Performed By: #### P TT, PT #### [address] [address] [employer]: Tato Ibarra MD Neutrophil (Seg) 74 % High 36-65 [facility] Comment on above: Performed By: #### P TT, PT #### [address] [address] [employer]: Tato Ibarra MD Erythrocyte distribution width (RBC) [Ratio] 21.8 % High 11.8-14.[address] [facility] Comment on above: Performed By: #### P TT, PT #### [address] [address] [employer] Operator: Tato Ibarra MD Hematocrit (Bld) [Volume fraction] 25.5 % Low 36.3-47.[address] [facility] Comment on above: Performed By: #### P TT, PT #### [address] [address] [employer] Operator: Tato Ibarra MD Hemoglobin (Bld) [Mass/Vol] 8.6 g/dL Low 11.9-15.[address] [facility] Comment on above: Performed By: #### P TT, PT #### [address] [address] [employer]: Tato Ibarra MD MCH (RBC) [Entitic mass] 31.6 pg Normal 25.2-33.[address] [facility] Comment on above: Performed By: #### P TT, PT #### [address] [address] [employer] Operator: Tato Ibarra MD MCHC (RBC) [Mass/Vol] 33.7 g/dL Normal 28.4-34.[address] [facility] Comment on above: Performed By: #### P TT, PT #### [address] [address] [employer] Operator: Tato Ibarra MD MCV (RBC) [Entitic vol] 93.8 fL Normal 82.6-102.[address] [facility] Comment on above: Performed By: #### P TT, PT #### [address] [address] [employer]: Tato Ibarra MD NRBC Automated 0.0 per 100 WBC Normal 0.[address] [facility] Comment on above: Performed By: #### P TT, PT #### [address] [address] [employer] Operator: Tato Ibarra MD Platelet mean volume (Bld) [Entitic vol] 9.7 fL Normal 8.1-13.[address] [facility] Comment on above: Performed By: #### P TT, PT #### [address] [address] [employer] Operator: aTto Ibarra MD Platelets (Bld) [#/Vol] 220 10*3/uL Normal 138-[address] [facility] Comment on above: Performed By: #### P TT, PT #### [facility] [address] [place] [address] [employer] Operator: Tato Ibarra MD RBC (Bld) [#/Vol] 2.72 10*6/uL Low 3.95-5.[address] [facility] Comment on above: Performed By: #### P TT, PT #### [facility] [address] [place] [address] [employer] Operator: Tato Ibarra MD WBC (Bld) [#/Vol] 7.3 10*3/uL Normal 3.5-11.[address] [facility] Comment on above: Performed By: #### P TT, PT #### [facility] [address] [place], [place] [phone] [employer]: Tato Ibarra MD EKG 12 Leadon 01-03-2024 Atrial Rate 94 BPM [facility] P Gary 14 degrees [facility] P-R Interval 162 ms [facility] Q-T Interval 350 ms [facility] QRS Duration 86 ms [facility] QTc Calculation (Bazett) 437 ms [facility] R Gary 25 degrees [facility] T Gary -97 degrees [facility] Ventricular Rate 94 BPM [facility] Normal sinus rhythm T wave abnormality, consider anterior ischemia Abnormal ECG When compared with ECG of 01-JAN-2024 18:15, No significant change was found [facility] Omar Villasenor MD - 01/03/2024 Normal sinus rhythm T wave abnormality, consider anterior ischemia Abnormal ECG When compared with ECG of 01-JAN-2024 18:15, No significant change was found [facility] Hemoglobin and Hematocriton 01-03-2024 Hematocrit (Bld) [Volume fraction] 28.3 % Low 36.3 - 47.1 % [facility] Hemoglobin (Bld) [Mass/Vol] 9.3 g/dL Low 11.9 - 15.1 g/dL [facility] Interpretation and review of laboratory results Abnormal [facility] Hematocrit (Bld) [Volume fraction] 27.3 % Low 36.3 - 47.1 % [facility] Hemoglobin (Bld) [Mass/Vol] 9.1 g/dL Low 11.9 - 15.1 g/dL [facility] Interpretation and review of laboratory results Abnormal [facility] Hgb/Hcton 01-03-2024 Hematocrit (Bld) [Volume fraction] 28.3 % Low 36.3-47.[address] [facility] Comment on above: Performed By: #### O SMO, LD, MG, JESUS, TSHX, LIVP, B12FOL, LACTIC, FT4, BMP #### [employer] [address] [place] [address] [phone] [employer] Operator: Tato Ibarra MD Hemoglobin (Bld) [Mass/Vol] 9.3 g/dL Low 11.9-15.[address] [facility] Comment on above: Performed By: #### O SMO, LD, MG, JESUS, TSHX, LIVP, B12FOL, LACTIC, FT4, BMP #### [facility] [address] [place] [address] [phone] [employer]: Tato Ibarra MD Hematocrit (Bld) [Volume fraction] 27.3 % Low 36.3-47.[address] [facility] Comment on above: Performed By: #### P TT, PT #### [facility] [address] [place] [address] [phone] [employer]: Tato Ibarra MD Hemoglobin (Bld) [Mass/Vol] 9.1 g/dL Low 11.9-15.[address] [facility] Comment on above: Performed By: #### P TT, PT #### [employer] [employer] [address] [place] [address] [phone] [employer]: Tato Ibarra MD K (Potassium)on 01-03-2024 Potassium [Moles/Vol] 3.1 mmol/L Low 3.7-5.[address] [facility] Comment on above: Performed By: #### O SMO, LD, MG, JESUS, TSHX, LIVP, B12FOL, LACTIC, FT4, BMP #### [employer] [address] [place] [phone] [employer]: Tato Ibarra MD Magnesiumon 01-03-2024 Magnesium [Mass/Vol] 1.8 mg/dL 1.6 - 2.6 mg/dL [facility] Magnesium [Mass/Vol] 1.8 mg/dL Normal 1.6-2.[address] [facility] Comment on above: Performed By: #### P TT, PT #### [facility] [address] [place] [address] [employer]: Tato Ibarra MD Potassiumon 01-03-2024 Interpretation and review of laboratory results Abnormal [facility] Potassium [Moles/Vol] 3.1 mmol/L Low 3.7 - 5.3 mmol/L [facility] Basic Metab w/rfx MGon 01-01 Anion gap [Moles/Vol] 9 mmol/L Normal 9-[address] [facility] Comment on above: Performed By: #### O SMO, LD, MG, JESUS, TSHX, LIVP, B12FOL, LACTIC, FT4, BMP #### [employer] [address] [place] [phone] [employer] Operator: Tato Ibarra MD Calcium [Mass/Vol] 7.8 mg/dL Low 8.6-10.[address] [facility] Comment on above: Performed By: #### O SMO, LD, MG, JESUS, TSHX, LIVP, B12FOL, LACTIC, FT4, BMP #### [facility] [address] [place] [address] [employer] Operator: Tato Ibarra MD Chloride [Moles/Vol] 110 mmol/L High 98-[address] [facility] Comment on above: Performed By: #### O SMO, LD, MG, JESUS, TSHX, LIVP, B12FOL, LACTIC, FT4, BMP #### [address] [phone] [employer]: Tato Ibarra MD CO2 [Moles/Vol] 22 mmol/L Normal 20-[address] [facility] Comment on above: Performed By: #### O SMO, LD, MG, JESUS, TSHX, LIVP, B12FOL, LACTIC, FT4, BMP #### [address] [phone] [employer]: Tato Ibarra MD Creatinine [Mass/Vol] 0.3 mg/dL Low 0.50-0.[address] [facility] Comment on above: Performed By: #### O SMO, LD, MG, JESUS, TSHX, LIVP, B12FOL, LACTIC, FT4, BMP #### [address] [phone] [employer]: Tato Ibarra MD GFR/1.73 sq M.predicted among non-blacks MDRD (S/P/Bld) [Vol rate/Area] mL/min/{1.73_m2} Normal >[address] [facility] Comment [...] TSHX, LIVP, B12FOL, LACTIC, FT4, BMP #### [address] [phone] [employer]: Tato Ibarra MD Glucose [Mass/Vol] 105 mg/dL High 74-[address] [facility] Comment on above: Performed By: #### O SMO, LD, MG, JESUS, TSHX, LIVP, B12FOL, LACTIC, FT4, BMP #### [facility] [address] [place] [address] [phone] [employer]: Tato Ibarra MD Potassium [Moles/Vol] 3.0 mmol/L Low 3.7-5.[address] [facility] Comment on above: Performed By: #### O SMO, LD, MG, JESUS, TSHX, LIVP, B12FOL, LACTIC, FT4, BMP #### [facility] [address] [place] [address] [phone] [employer]: Tato Ibarra MD Sodium [Moles/Vol] 141 mmol/L Normal 136-[address] [facility] Comment on above: Performed By: #### O SMO, LD, MG, JESUS, TSHX, LIVP, B12FOL, LACTIC, FT4, BMP #### [facility] [address] [place] [address] [phone] [employer]: Tato Ibarra MD Urea nitrogen [Mass/Vol] 8 mg/dL Normal 6-[address] [facility] Comment on above: Performed By: #### O SMO, LD, MG, JESUS, TSHX, LIVP, B12FOL, LACTIC, FT4, BMP #### [employer] [address] [place] [address] [phone] [employer]: Tato Ibarra MD Basic Metabolic Panel w/ Ref jacinto to MGon 01-02-2024 Anion gap [Moles/Vol] 9 mmol/L 9 - 16 mmol/L [facility] Calcium [Mass/Vol] 7.8 mg/dL Low 8.6 - 10.4 mg/dL [facility] Chloride [Moles/Vol] 110 mmol/L High 98 - 107 mmol/L [facility] CO2 [Moles/Vol] 22 mmol/L 20 - 31 mmol/L [facility] Creatinine [Mass/Vol] 0.3 mg/dL Low 0.50 - 0.90 mg/dL [facility] Otis Maciel - PINF [facility] Comment on above: These results are [...] 105 mg/dL High 74 - 99 mg/dL [facility] Interpretation and review of laboratory results Abnormal [facility] Potassium [Moles/Vol] 3.0 mmol/L Low 3.7 - 5.3 mmol/L [facility] Sodium [Moles/Vol] 141 mmol/L 136 - 145 mmol/L [facility] Urea nitrogen [Mass/Vol] 8 mg/dL 6 - 20 mg/dL [facility] CBC with Auto Differentialon 01-02-2024 Basophils (Bld) [#/Vol] 0.00 10*3/uL [facility] Erythrocyte distribution width (RBC) [Ratio] 23.0 % High 11.8 - 14.4 % [facility] Hematocrit (Bld) [Volume fraction] 24.8 % Low 36.3 - 47.1 % [facility] Hemoglobin (Bld) [Mass/Vol] 8.4 g/dL Low 11.9 - 15.1 g/dL [facility] Immature granulocytes (Bld) [#/Vol] 0.00 10*3/uL [facility] Interpretation and review of laboratory results Abnormal [facility] Lymphocytes/100 WBC (Bld) 1.50 % [facility] MCH (RBC) [Entitic mass] 31.1 pg 25.2 - 33.5 pg [facility] MCHC (RBC) [Mass/Vol] 33.9 g/dL 28.4 - 34.8 g/dL [facility] MCV (RBC) [Entitic vol] 91.9 fL 82.6 - 102.9 fL [facility] Monocytes/100 WBC (Bld) 0.82 % [facility] Morphology Ritesh (Bld) [Interp] HYPOCHROMIA PRESENT [facility] Neutrophils/100 WBC (Bld) 66 % High 36 - 65 % [facility] Nucleated RBC/100 WBC (Bld) [Ratio] 0.0 % 0.0 per 100 WBC [facility] Platelet mean volume (Bld) [Entitic vol] 9.3 fL 8.1 - 13.5 fL [facility] Platelets (Bld) [#/Vol] 207 10*3/uL [facility] RBC (Bld) [#/Vol] 2.70 10*6/uL Low 3.95 - 5.11 m/uL [facility] Segmented neutrophils/100 WBC (Bld) 4.48 % [facility] WBC other (Bld) [#/Vol] 6.8 [facility] Basophils (Bld) [#/Vol] 0.00 10*3/uL [facility] Basophils/100 WBC (Bld) 0 % 0 - 2 % [facility] Eosinophils (Bld) [#/Vol] 0.00 10*3/uL [facility] Eosinophils/100 WBC (Bld) 0 % Low 1 - 4 % [facility] Erythrocyte distribution width (RBC) [Ratio] 22.9 % High 11.8 - 14.4 % [facility] Hematocrit (Bld) [Volume fraction] 25.7 % Low 36.3 - 47.1 % [facility] Hemoglobin (Bld) [Mass/Vol] 8.8 g/dL Low 11.9 - 15.1 g/dL [facility] Immature granulocytes (Bld) [#/Vol] 0.00 10*3/uL [facility] Immature granulocytes/100 WBC (Bld) 0 % 0 [facility] Interpretation and review of laboratory results Abnormal [facility] Lymphocytes/100 WBC (Bld) 22 % Low 24 - 43 % [facility] Lymphocytes/100 WBC (Bld) 1.52 % [facility] MCH (RBC) [Entitic mass] 31.5 pg 25.2 - 33.5 pg [facility] MCHC (RBC) [Mass/Vol] 34.2 g/dL 28.4 - 34.8 g/dL [facility] MCV (RBC) [Entitic vol] 92.1 fL 82.6 - 102.9 fL [facility] Monocytes/100 WBC (Bld) 9 % 3 - 12 % [facility] Monocytes/100 WBC (Bld) 0.62 % [facility] Morphology Ritesh (Bld) [Interp] ANISOCYTOSIS PRESENT [facility] Morphology Ritesh (Bld) [Interp] HYPOCHROMIA PRESENT [facility] Neutrophils/100 WBC (Bld) 69 % High 36 - 65 % [facility] Nucleated RBC/100 WBC (Bld) [Ratio] 0.0 % 0.0 per 100 WBC [facility] Platelet mean volume (Bld) [Entitic vol] 9.2 fL 8.1 - 13.5 fL [facility] Platelets (Bld) [#/Vol] 215 10*3/uL [facility] RBC (Bld) [#/Vol] 2.79 10*6/uL Low 3.95 - 5.11 m/uL [facility] Segmented neutrophils/100 WBC (Bld) 4.76 % [facility] WBC other (Bld) [#/Vol] 6.9 [facility] CBC with Diffon 01-02-2024 Basophils/100 WBC (Bld) 0 % Normal 0-2 [facility] Comment on above: Performed By: #### O SMO, LD, MG, JESUS, TSHX, LIVP, B12FOL, LACTIC, FT4, BMP #### [facility] [place] [address] [employer]: Tato Ibarra MD Eosinophils (Bld) [#/Vol] 0.00 10*3/uL Normal 0.00-0.44 [facility] Comment on above: Performed By: #### O SMO, LD, MG, JESUS, TSHX, LIVP, B12FOL, LACTIC, FT4, BMP #### [facility] [address] [place] [phone] [employer]: Tato Ibarra MD Eosinophils/100 WBC (Bld) 0 % Low 1-4 [facility] Comment on above: Performed By: #### O SMO, LD, MG, JESUS, TSHX, LIVP, B12FOL, LACTIC, FT4, BMP #### [facility] [address] [place] [address] [phone] [employer]: Tato Ibarra MD Immature granulocytes/100 WBC (Bld) 0 % Normal 0 [facility] Comment on above: Performed By: #### O SMO, LD, MG, JESUS, TSHX, LIVP, B12FOL, LACTIC, FT4, BMP #### [facility] [employer] [address] [place] [address] [phone] [employer]: Tato Ibarra MD Lymphocytes/100 WBC (Bld) 22 % Low 24-43 [facility] Comment on above: Performed By: #### O SMO, LD, MG, JESUS, TSHX, LIVP, B12FOL, LACTIC, FT4, BMP #### [facility] [address] [place] [address] [id number] [employer] Operator: Tato Ibarra MD Monocytes/100 WBC (Bld) 12 % Normal 3-12 [facility] Comment on above: Performed By: #### O SMO, LD, MG, JESUS, TSHX, LIVP, B12FOL, LACTIC, FT4, BMP #### [facility] [address] [place] [id number] [employer] Operator: Tato Ibarra MD Morphology Ritesh (Bld) [Interp] ANISOCYTOSIS PRESENT Normal [facility] Comment on above: Result Comment: HYPO CHROMIA PRESENT Performed By: #### O SMO, LD, MG, JESUS, TSHX, LIVP, B12FOL, LACTIC, FT4, BMP #### [facility] [address] [place] [address] [employer] Operator: Tato Ibarra MD Abs. Basophil 0.00 k/uL Normal 0.00-0.[address] [facility] Comment on above: Performed By: #### O SMO, LD, MG, JESUS, TSHX, LIVP, B12FOL, LACTIC, FT4, BMP #### [address] [address] [employer] Operator: Tato Ibarra MD Abs.Imm.Granulocyte 0.00 k/uL Normal 0.00-0.[address] [facility] Comment on above: Performed By: #### O SMO, LD, MG, JESUS, TSHX, LIVP, B12FOL, LACTIC, FT4, BMP #### [place] [address] [employer] Operator: Tato Ibarra MD Abs.Neutrophil (Seg) 4.48 k/uL Normal 1.50-8.[address] [facility] Comment on above: Performed By: #### O SMO, LD, MG, JESUS, TSHX, LIVP, B12FOL, LACTIC, FT4, BMP #### [address] [address] [employer]izer Mill Operator: Tato Ibarra MD Lymphocytes (Bld) [#/Vol] 1.50 10*3/uL Normal 1.10-3.[address] [facility] Comment on above: Performed By: #### O SMO, LD, MG, JESUS, TSHX, LIVP, B12FOL, LACTIC, FT4, BMP #### [address] [address] Pul[employer]izer Mill Operator: Tato Ibarra MD Monocytes (Bld) [#/Vol] 0.82 10*3/uL Normal 0.10-1.[address] [facility] Comment on above: Performed By: #### O SMO, LD, MG, JESUS, TSHX, LIVP, B12FOL, LACTIC, FT4, BMP #### [address] [address] Pul[employer]izer Mill Operator: Tato Ibarar MD Neutrophil (Seg) 66 % High 36-65 [facility] Comment on above: Performed By: #### O SMO, LD, MG, JESUS, TSHX, LIVP, B12FOL, LACTIC, FT4, BMP #### [address] [phone] [employer] Operator: Tato Ibarra MD Erythrocyte distribution width (RBC) [Ratio] 23.0 % High 11.8-14.[address] [facility] Comment on above: Performed By: #### O SMO, LD, MG, JESUS, TSHX, LIVP, B12FOL, LACTIC, FT4, BMP #### [address] [phone] [employer] Operator: Tato Ibarra MD Hematocrit (Bld) [Volume fraction] 24.8 % Low 36.3-47.[address] [facility] Comment on above: Performed By: #### O SMO, LD, MG, JESUS, TSHX, LIVP, B12FOL, LACTIC, FT4, BMP #### [address] [phone] [employer] Operator: Tato Ibarra MD Hemoglobin (Bld) [Mass/Vol] 8.4 g/dL Low 11.9-15.[address] [facility] Comment on above: Performed By: #### O SMO, LD, MG, JESUS, TSHX, LIVP, B12FOL, LACTIC, FT4, BMP #### [address] [address] [employer] Mill Operator: Tato Ibarra MD MCH (RBC) [Entitic mass] 31.1 pg Normal 25.2-33.[address] [facility] Comment on above: Performed By: #### O SMO, LD, MG, JESUS, TSHX, LIVP, B12FOL, LACTIC, FT4, BMP #### [address] [address] [employer] Mill Operator: Tato Ibarra MD MCHC (RBC) [Mass/Vol] 33.9 g/dL Normal 28.4-34.[address] [facility] Comment on above: Performed By: #### O SMO, LD, MG, JESUS, TSHX, LIVP, B12FOL, LACTIC, FT4, BMP #### [address] [address] [employer] Mill Operator: Tato Ibarra MD MCV (RBC) [Entitic vol] 91.9 fL Normal 82.6-102.[address] [facility] Comment on above: Performed By: #### O SMO, LD, MG, JESUS, TSHX, LIVP, B12FOL, LACTIC, FT4, BMP #### [address] [address] [employer]izer Mill Operator: Tato Ibarra MD NRBC Automated 0.0 per 100 WBC Normal 0.[address] [facility] Comment on above: Performed By: #### O SMO, LD, MG, JESUS, TSHX, LIVP, B12FOL, LACTIC, FT4, BMP #### [address] [phone] [employer] Operator: Tato Ibarra MD Platelet mean volume (Bld) [Entitic vol] 9.3 fL Normal 8.1-13.[address] [facility] Comment on above: Performed By: #### O SMO, LD, MG, JESUS, TSHX, LIVP, B12FOL, LACTIC, FT4, BMP #### [address] [address] [employer] Operator: Tato Ibarra MD Platelets (Bld) [#/Vol] 207 10*3/uL Normal 138-[address] [facility] Comment on above: Performed By: #### O SMO, LD, MG, JESUS, TSHX, LIVP, B12FOL, LACTIC, FT4, BMP #### [address] [address] [employer] Mill Operator: Tato Ibarra MD RBC (d) [#/Vol] 2.70 10*6/uL Low 3.95-5.[address] [facility] Comment on above: Performed By: #### O SMO, LD, MG, JESUS, TSHX, LIVP, B12FOL, LACTIC, FT4, BMP #### [address] [address] [employer]izer Mill Operator: Tato Ibarra MD WBC (d) [#/Vol] 6.8 10*3/uL Normal 3.5-11.[address] [facility] Comment on above: Performed By: #### O SMO, LD, MG, JESUS, TSHX, LIVP, B12FOL, LACTIC, FT4, BMP #### [address] [address] [employer] Mill Operator: Tato Ibarra MD Abs. Basophil 0.00 k/uL Normal 0.00-0.[address] [facility] Comment on above: Performed By: #### O SMO, LD, MG, JESUS, TSHX, LIVP, B12FOL, LACTIC, FT4, BMP #### [address] [address] [employer] Mill Operator: Tato Ibarra MD Abs.Imm.Granulocyte 0.00 k/uL Normal 0.00-0.[address] [facility] Comment on above: Performed By: #### O SMO, LD, MG, JESUS, TSHX, LIVP, B12FOL, LACTIC, FT4, BMP #### [address] [address] [employer] Mill Operator: Tato Ibarra MD Abs.Neutrophil (Seg) 4.76 k/uL Normal 1.50-8.[address] [facility] Comment on above: Performed By: #### O SMO, LD, MG, JESUS, TSHX, LIVP, B12FOL, LACTIC, FT4, BMP #### [address] [phone] [employer] Operator: Tato Ibarra MD Basophils/100 WBC (Bld) 0 % Normal 0-[address] [facility] Comment on above: Performed By: #### O SMO, LD, MG, JESUS, TSHX, LIVP, B12FOL, LACTIC, FT4, BMP #### [address] [address] [employer] Operator: Tato Ibarra MD Eosinophils (Bld) [#/Vol] 0.00 10*3/uL Normal 0.00-0.[address] [facility] Comment on above: Performed By: #### O SMO, LD, MG, JESUS, TSHX, LIVP, B12FOL, LACTIC, FT4, BMP #### [place] [address] [employer]izer Mill Operator: Tato Ibarra MD Eosinophils/100 WBC (Bld) 0 % Low 1-[address] [facility] Comment on above: Performed By: #### O SMO, LD, MG, JESUS, TSHX, LIVP, B12FOL, LACTIC, FT4, BMP #### [address] [address] [employer] Mill Operator: Tato Ibarra MD Immature granulocytes/100 WBC (Bld) 0 % Normal [address] [facility] Comment on above: Performed By: #### O SMO, LD, MG, JESUS, TSHX, LIVP, B12FOL, LACTIC, FT4, BMP #### [place] [address] [employer]izer Mill Operator: Tato Ibarra MD Lymphocytes (Bld) [#/Vol] 1.52 10*3/uL Normal 1.10-3.[address] [facility] Comment on above: Performed By: #### O SMO, LD, MG, JESUS, TSHX, LIVP, B12FOL, LACTIC, FT4, BMP #### [address] [address] [employer] Operator: Tato Ibarra MD Lymphocytes/100 WBC (Bld) 22 % Low 24-[address] [facility] Comment on above: Performed By: #### O SMO, LD, MG, JESUS, TSHX, LIVP, B12FOL, LACTIC, FT4, BMP #### [address] [address] [employer] Mill Operator: Tato Ibarra MD Monocytes (Bld) [#/Vol] 0.62 10*3/uL Normal 0.10-1.[address] [facility] Comment on above: Performed By: #### O SMO, LD, MG, JESUS, TSHX, LIVP, B12FOL, LACTIC, FT4, BMP #### [address] [address] [employer] Mill Operator: Tato Ibarra MD Monocytes/100 WBC (Bld) 9 % Normal 3-[address] [facility] Comment on above: Performed By: #### O SMO, LD, MG, JESUS, TSHX, LIVP, B12FOL, LACTIC, FT4, BMP #### [facility] [employer] [address] [place] [address] Pul[employer]izer Mill Operator: Tato Ibarra MD Morphology Ritesh (Bld) [Interp] ANISOCYTOSIS PRESENT Normal [facility] Comment on above: Result Comment: HYPO CHROMIA PRESENT Performed By: #### O SMO, LD, MG, JESUS, TSHX, LIVP, B12FOL, LACTIC, FT4, BMP #### [address] [address] [employer] Mill Operator: Tato Ibarra MD Neutrophil (Seg) 69 % High 36-65 [facility] Comment on above: Performed By: #### O SMO, LD, MG, JESUS, TSHX, LIVP, B12FOL, LACTIC, FT4, BMP #### [address] [phone] [employer] Mill Operator: Tato Ibarra MD Erythrocyte distribution width (RBC) [Ratio] 22.9 % High 11.8-14.[address] [facility] Comment on above: Performed By: #### O SMO, LD, MG, JESUS, TSHX, LIVP, B12FOL, LACTIC, FT4, BMP #### [address] [phone] [employer] Operator: Tato Ibarra MD Hematocrit (Bld) [Volume fraction] 25.7 % Low 36.3-47.[address] [facility] Comment on above: Performed By: #### O SMO, LD, MG, JESUS, TSHX, LIVP, B12FOL, LACTIC, FT4, BMP #### [address] [phone] [employer] Operator: Tato Ibarra MD Hemoglobin (Bld) [Mass/Vol] 8.8 g/dL Low 11.9-15.[address] [facility] Comment on above: Performed By: #### O SMO, LD, MG, JESUS, TSHX, LIVP, B12FOL, LACTIC, FT4, BMP #### [address] [phone] [employer] Operator: Tato Ibarra MD MCH (RBC) [Entitic mass] 31.5 pg Normal 25.2-33.[address] [facility] Comment on above: Performed By: #### O SMO, LD, MG, JESUS, TSHX, LIVP, B12FOL, LACTIC, FT4, BMP #### [address] [phone] [employer] Operator: Tato Ibarra MD MCHC (RBC) [Mass/Vol] 34.2 g/dL Normal 28.4-34.[address] [facility] Comment on above: Performed By: #### O SMO, LD, MG, JESUS, TSHX, LIVP, B12FOL, LACTIC, FT4, BMP #### [address] [address] [employer] Mill Operator: Tato Ibarra MD MCV (RBC) [Entitic vol] 92.1 fL Normal 82.6-102.[address] [facility] Comment on above: Performed By: #### O SMO, LD, MG, JESUS, TSHX, LIVP, B12FOL, LACTIC, FT4, BMP #### [address] [address] [employer] Mill Operator: Tato Ibarra MD NRBC Automated 0.0 per 100 WBC Normal 0.[address] [facility] Comment on above: Performed By: #### O SMO, LD, MG, JESUS, TSHX, LIVP, B12FOL, LACTIC, FT4, BMP #### [address] [address] [employer] Operator: Tato Ibarra MD Platelet mean volume (Bld) [Entitic vol] 9.2 fL Normal 8.1-13.[address] [facility] Comment on above: Performed By: #### O SMO, LD, MG, JESUS, TSHX, LIVP, B12FOL, LACTIC, FT4, BMP #### [address] [address] [employer] Operator: Tato Ibarra MD Platelets (Bld) [#/Vol] 215 10*3/uL Normal 138-[address] [facility] Comment on above: Performed By: #### O SMO, LD, MG, JESUS, TSHX, LIVP, B12FOL, LACTIC, FT4, BMP #### [address] [address] [employer] Operator: Tato Ibarra MD RBC (Bld) [#/Vol] 2.79 10*6/uL Low 3.95-5.[address] [facility] Comment on above: Performed By: #### O SMO, LD, MG, JESUS, TSHX, LIVP, B12FOL, LACTIC, FT4, BMP #### [address] [place] [address] [employer] Mill Operator: Tato Ibarra MD WBC (Bld) [#/Vol] 6.9 10*3/uL Normal 3.5-11.[address] [facility] Comment on above: Performed By: #### O SMO, LD, MG, JESUS, TSHX, LIVP, B12FOL, LACTIC, FT4, BMP #### [address] [place] [address] [employer] Mill Operator: Tato Ibarra MD CTA ABDOM[facility]ELVIS [facility] CTA ABDOMEN PELVIS W WO CONTRAST [...] Nasir Martinez MD 01/02/24 Final result Normal [facility] CTA Abdominal vessels and Pe [...] L5-S1, L1-L2, and on either side T11. [facility] RIS CONSOLIDATED EXAMINATION: CTA OF THE ABDOMEN [...] L5-S1, L1-L2, and on either side T11. [facility] RIS CONSOLIDATED Nasir Martinez MD - 01/02/2024 [...] L5-S1, L1-L2, and on either side T11. [facility] CTA Abdominal vessels and Pe lvis vessels WO and W contrast IVOrdered By: Nasir Martinez on 01-02-2024 [facility] [employer] Work Phone: Comp Metabolic Pr/rfx MGon 0 01-02-2024 Albumin [Mass/Vol] 2.7 g/dL Low 3.5-5.[address] [facility] Comment on above: Performed By: #### O SMO, LD, MG, JESUS, TSHX, LIVP, B12FOL, LACTIC, FT4, BMP #### [address] [address] [employer] Operator: Tato Ibarra MD Albumin/Glob Ratio 2.0 Normal 1.0-2.[address] [facility] Comment on above: Performed By: #### O SMO, LD, MG, JESUS, TSHX, LIVP, B12FOL, LACTIC, FT4, BMP #### [address] [address] [employer] Operator: Tato Ibarra MD Alkaline Phos 124 U/L High 35-[address] [facility] Comment on above: Performed By: #### O SMO, LD, MG, JESUS, TSHX, LIVP, B12FOL, LACTIC, FT4, BMP #### [facility] [employer] [address] [place] [address] [employer] Operator: Tato Ibarra MD ALT [Catalytic activity/Vol] 13 U/L Normal 10-[address] [facility] Comment on above: Performed By: #### O SMO, LD, MG, JESUS, TSHX, LIVP, B12FOL, LACTIC, FT4, BMP #### [facility] [address] [place] [address] [employer] Operator: Tato Ibarra MD Anion gap [Moles/Vol] 12 mmol/L Normal 9-[address] [facility] Comment on above: Performed By: #### O SMO, LD, MG, JESUS, TSHX, LIVP, B12FOL, LACTIC, FT4, BMP #### [facility] [address] [place] [address] [employer] Operator: Taot Ibarra MD AST [Catalytic activity/Vol] 42 U/L High 10-[address] [facility] Comment on above: Performed By: #### O SMO, LD, MG, JESUS, TSHX, LIVP, B12FOL, LACTIC, FT4, BMP #### [address] [address] [employer] Operator: Tato Ibarra MD Bilirubin [Mass/Vol] 0.8 mg/dL Normal 0.00-1.[address] [facility] Comment on above: Performed By: #### O SMO, LD, MG, JESUS, TSHX, LIVP, B12FOL, LACTIC, FT4, BMP #### [address] [address] [employer] Operator: Tato Ibarra MD Calcium [Mass/Vol] 7.8 mg/dL Low 8.6-10.[address] [facility] Comment on above: Performed By: #### O SMO, LD, MG, JESUS, TSHX, LIVP, B12FOL, LACTIC, FT4, BMP #### [facility] [employer] [address] [place] [address] [employer] Operator: Tato Ibarra MD Chloride [Moles/Vol] 106 mmol/L Normal 98-[address] [facility] Comment on above: Performed By: #### O SMO, LD, MG, JESUS, TSHX, LIVP, B12FOL, LACTIC, FT4, BMP #### [address] [address] [employer] Operator: Tato Ibarra MD CO2 [Moles/Vol] 19 mmol/L Low 20-[address] [facility] Comment on above: Performed By: #### O SMO, LD, MG, JESUS, TSHX, LIVP, B12FOL, LACTIC, FT4, BMP #### [address] [address] [employer] Operator: Tato Ibarra MD Creatinine [Mass/Vol] 0.3 mg/dL Low 0.50-0.[address] [facility] Comment on above: Performed By: #### O SMO, LD, MG, JESUS, TSHX, LIVP, B12FOL, LACTIC, FT4, BMP #### [address] [phone] [employer] Operator: Tato Ibarra MD GFR/1.73 sq M.predicted among non-blacks MDRD (S/P/Bld) [Vol rate/Area] mL/min/{1.73_m2} Normal >[address] [facility] Comment [...] TSHX, LIVP, B12FOL, LACTIC, FT4, BMP #### [address] [phone] [employer] Operator: Tato Ibarra MD Glucose [Mass/Vol] 104 mg/dL High 74-[address] [facility] Comment on above: Performed By: #### O SMO, LD, MG, JESUS, TSHX, LIVP, B12FOL, LACTIC, FT4, BMP #### [address] [phone] [employer] Operator: Tato Ibarra MD Potassium [Moles/Vol] 3.9 mmol/L Normal 3.7-5.[address] [facility] Comment on above: Performed By: #### O SMO, LD, MG, JESUS, TSHX, LIVP, B12FOL, LACTIC, FT4, BMP #### [address] [phone] [employer] Operator: Tato Ibarra MD Protein [Mass/Vol] 4.5 g/dL Low 6.6-8.[address] [facility] Comment on above: Performed By: #### O SMO, LD, MG, JESUS, TSHX, LIVP, B12FOL, LACTIC, FT4, BMP #### [facility] [place], [place] [phone] [employer] Mill Operator: Tato Ibarra MD Sodium [Moles/Vol] 137 mmol/L Normal 136-[address] [facility] Comment on above: Performed By: #### O SMO, LD, MG, JESUS, TSHX, LIVP, B12FOL, LACTIC, FT4, BMP #### [facility] [place], [place] [id number] [employer] Operator: Tato Ibarra MD Urea nitrogen [Mass/Vol] 8 mg/dL Normal 6-[address] [facility] Comment on above: Performed By: #### O SMO, LD, MG, JESUS, TSHX, LIVP, B12FOL, LACTIC, FT4, BMP #### [facility] [address] [place] [address] [phone] [employer] Operator: Tato Ibarra MD Comprehensive Metabolic Pane l w/ Reflex to MGon 01-02-2024 Albumin [Mass/Vol] 2.7 g/dL Low 3.5 - 5.2 g/dL [facility] Albumin/Globulin [Mass ratio] 2.0 {ratio} 1.0 - 2.5 [facility] ALP [Catalytic activity/Vol] 124 U/L High 35 - 104 U/L [facility] ALT [Catalytic activity/Vol] 13 U/L 10 - 35 U/L [facility] Anion gap [Moles/Vol] 12 mmol/L 9 - 16 mmol/L [facility] AST [Catalytic activity/Vol] 42 U/L High 10 - 35 U/L [facility] Bilirubin [Mass/Vol] 0.8 mg/dL 0.00 - 1.20 mg/ dL [facility] Calcium [Mass/Vol] 7.8 mg/dL Low 8.6 - 10.4 mg/dL [facility] Chloride [Moles/Vol] 106 mmol/L 98 - 107 mmol/L [facility] [employer] CO2 [Moles/Vol] 19 mmol/L Low 20 - 31 mmol/L [facility] Creatinine [Mass/Vol] 0.3 mg/dL Low 0.50 - 0.90 mg/dL [facility] Otis Maciel Rate - PINF [facility] Comment on above: These results are [...] 104 mg/dL High 74 - 99 mg/dL [facility] Interpretation and review of laboratory results Abnormal [facility] [employer] Potassium [Moles/Vol] 3.9 mmol/L 3.7 - 5.3 mmol/L [facility] Protein [Mass/Vol] 4.5 g/dL Low 6.6 - 8.7 g/dL [facility] Sodium [Moles/Vol] 137 mmol/L 136 - 145 mmol/L [facility] Urea nitrogen [Mass/Vol] 8 mg/dL 6 - 20 mg/dL [facility] [employer] EKG 12 LeadOrdered By: Noé Godinez on 01-02-2024 Atrial Rate 103 BPM [facility] [employer] Work Phone: P Gary 9 degrees [employer] Work Phone: [phone] P-R Interval 156 ms [employer] Work Phone: Q-T Interval 358 ms [employer] Work Phone: QRS Duration 82 ms [employer] Work Phone: QTc Calculation (Bazett) 468 ms [employer] Work Phone: R Gary 26 degrees [employer] Work Phone: T Gary 170 degrees [facility] [employer] Work Phone: Ventricular Rate 103 BPM [facility] [employer] Work Phone: [facility] [employer] Work Phone: EKG 12 Leadon 01-02-2024 Sinus tachycardia T wave abnormality, consider anterior ischemia Abnormal ECG When compared with ECG of 31-DEC-2023 16:01, No significant change was found [facility] Noé Garcia MD - 01/02/2024 Sinus tachycardia T wave abnormality, consider anterior ischemia Abnormal ECG When compared with ECG of 31-DEC-2023 16:01, No significant change was found [facility] Glucose,Whole Bloodon 2023 Glucose [Mass/Vol] 93 mg/dL Normal 65-[address] [facility] Hemoglobin and Hematocriton 01-02-2024 Hematocrit (Bld) [Volume fraction] 26.3 % Low 36.3 - 47.1 % [facility] Hemoglobin (Bld) [Mass/Vol] 9.1 g/dL Low 11.9 - 15.1 g/dL [facility] Interpretation and review of laboratory results Abnormal [facility] Hematocrit (Bld) [Volume fraction] 25.2 % Low 36.3 - 47.1 % [facility] Hemoglobin (Bld) [Mass/Vol] 8.5 g/dL Low 11.9 - 15.1 g/dL [facility] Interpretation and review of laboratory results Abnormal [facility] Hematocrit (Bld) [Volume fraction] 25.0 % Low 36.3 - 47.1 % [facility] Hemoglobin (Bld) [Mass/Vol] 8.6 g/dL Low 11.9 - 15.1 g/dL [facility] Interpretation and review of laboratory results Abnormal [facility] Hgb/Hcton 01-02-2024 Hematocrit (Bld) [Volume fraction] 26.3 % Low 36.3-47.[address] [facility] Comment on above: Performed By: #### P TT, PT #### [facility] [address] [place] [address] [employer] Operator: Tato Ibarra MD Hemoglobin (Bld) [Mass/Vol] 9.1 g/dL Low 11.9-15.[address] [facility] Comment on above: Performed By: #### P TT, PT #### [facility] [address] [place] [address] [employer] Operator: Tato Ibarra MD Hematocrit (Bld) [Volume fraction] 25.2 % Low 36.3-47.[address] [facility] Comment on above: Performed By: #### O SMO, LD, MG, JESUS, TSHX, LIVP, B12FOL, LACTIC, FT4, BMP #### [address] [address] [employer] Operator: Tato Ibarra MD Hemoglobin (Bld) [Mass/Vol] 8.5 g/dL Low 11.9-15.[address] [facility] Comment on above: Performed By: #### O SMO, LD, MG, JESUS, TSHX, LIVP, B12FOL, LACTIC, FT4, BMP #### [facility] [employer] [address] [place] [address] [employer] Operator: Tato Ibarra MD Hematocrit (Bld) [Volume fraction] 25.0 % Low 36.3-47.[address] [facility] Comment on above: Performed By: #### P TT, PT #### [facility] [address] [place] [address] [employer] Operator: Tato Ibarra MD Hemoglobin (Bld) [Mass/Vol] 8.6 g/dL Low 11.9-15.[address] [facility] Comment on above: Performed By: #### P TT, PT #### [facility] [address] [place] [address] [employer] Operator: Tato Ibarra MD IR EMBOLIZATION HEMORRHAGEon 01-02-2024 [...] angiography or nuclear medicine GI bleeding scan. [facility] Nasir Hoyos MD - 01/02/2024 PROCEDURE: IR [...] for a 0.035 inch wire and 5 Uzbek introducer sheath. A 5 Uzbek Bren catheter was then used to selectively catheterize the celiac artery and digital angiography was performed in AP and oblique projections. Subsequently, several different catheters were used to attempt selective catheterization of the left gastric artery, ultimately successful with a 5 Uzbek Cobra catheter. Digital angiography of the left [...] angiography or nuclear medicine GI bleeding scan. [facility] Lipaseon 01-02-2024 Lipase [Catalytic activity/Vol] 18 U/L 13 - 60 U/L [facility] Lipase [Catalytic activity/Vol] 18 U/L Normal 13-[address] [facility] Comment on above: Performed By: #### O SMO, LD, MG, JESUS, TSHX, LIVP, B12FOL, LACTIC, FT4, BMP #### [facility] [address] [place] [address] [employer] Mill Operator: Tato Ibarra MD MRSA DNA Probe, Nasalon MRSA, DNA, Nasal Negative NEGATIVE [facility] Comment on above: NEGATIVE: MRSA DNA n ot detected by nucleic acid amplification. Results should be used as an adjunct to nosocomial control efforts to identify patients needing enhanced precautions. The test is not intended to identify patients with staphylococcal infections. Results should not be used to guide or monitor treatment for MRSA infections. Specimen Description .NASAL SWAB [facility] MRSA, DNA, Nasalon MRSA, DNA, Nasal Negative Normal NEG [facility] Comment on above: Result Comment: NEGA [...] LACTIC, FT4, BMP #### [facility] [address] [place], [place] [phone] [employer] Operator: Tato Ibarra MD Magnesiumon 01-02-2024 Magnesium [Mass/Vol] 1.9 mg/dL 1.6 - 2.6 mg/dL [facility] Magnesium [Mass/Vol] 1.9 mg/dL Normal 1.6-2.[address] [facility] Comment on above: Performed By: #### O SMO, LD, MG, JESUS, TSHX, LIVP, B12FOL, LACTIC, FT4, BMP #### [facility] [place] [address] [employer] Operator: Tato Ibarra MD No Panel Informationon 01-01 Blood Bank Blood Product Expiration Date [facility] Blood Bank ISBT Product Blood Type 9500 [facility] Blood Bank Unit Type and Rh Negative [facility] Component Leukocyte Reduced Red Cell [facility] Crossmatch Result COMPATIBLE [facility] Dispense Status Blood Bank TRANSFUSED [facility] Product Code Blood Bank [id number] [facility] Transfusion Status OK TO TRANSFUSE B ON [facility] Unit Divison 0 [facility] POC Glucose Fingerstickon Glucose [Mass/Vol] 93 mg/dL 65 - 105 mg/dL [facility] TYPE AND SCREENon 01-02-2024 ABO/Rh Negative [facility] Arm Band Number BE [id number] [facility] Blood Bank Sample Expiration 01/03/2024,2353 [facility] Blood product unit ID (Dose) [#] [id number] [facility] Blood product unit ID (Dose) [#] [id number] [facility] Unit Issue Date/Time [id number] [facility] Unit Issue Date/Time [id number] [facility] Troponinon 01-02-2024 Troponin I.cardiac High sensitivity method [Mass/Vol] ng/L 0 - 14 ng/L [facility] Comment on above: High Sensitivity Tro ponin values cannot be compared with other Troponin methodologies. Troponin, High Sens <6 Normal 0-[address] [facility] Comment on above: Result Comment: High Sensitivity Troponin values cannot be compared with other Troponin methodologies. Performed By: #### O SMO, LD, MG, JESUS, TSHX, LIVP, B12FOL, LACTIC, FT4, BMP #### [employer] [address] [place] [id number] [employer] Operator: Tato Ibarra MD APTTon 01-01-2024 aPTT Coag (Bld) [Time] 24.6 s [facility] Comment on above: IV Heparin Therapy Range: 66.0-92.0 sec aPTT Coag (Bld) [Time] 24.6 s Normal 23.0-36.[address] [facility] Comment on above: Result Comment: IV Heparin Therapy Range: 66.0-92.0 sec Performed By: #### P TT, PT #### [employer] [address] [place] [id number] [employer] Operator: Tato Ibarra MD Basic Metab w/rfx MGon 12-31 Anion gap [Moles/Vol] 9 mmol/L Normal 9-[address] [facility] Comment on above: Performed By: #### O SMO, LD, MG, JESUS, TSHX, LIVP, B12FOL, LACTIC, FT4, BMP #### [employer] [address] [place] [phone] [employer] Operator: Tato Ibarra MD Calcium [Mass/Vol] 8.5 mg/dL Low 8.6-10.[address] [facility] Comment on above: Performed By: #### O SMO, LD, MG, JESUS, TSHX, LIVP, B12FOL, LACTIC, FT4, BMP #### [employer] [address] [place] [address] [phone] [employer] Operator: Tato Ibarra MD Chloride [Moles/Vol] 107 mmol/L Normal 98-[address] [facility] Comment on above: Performed By: #### O SMO, LD, MG, JESUS, TSHX, LIVP, B12FOL, LACTIC, FT4, BMP #### [facility] [employer] [address] [place] [phone] [employer] Operator: Tato Ibarra MD CO2 [Moles/Vol] 23 mmol/L Normal 20-[address] [facility] Comment on above: Performed By: #### O SMO, LD, MG, JESUS, TSHX, LIVP, B12FOL, LACTIC, FT4, BMP #### [facility] [address] [place] [address] [phone] [employer] Operator: Tato Ibarra MD Creatinine [Mass/Vol] 0.3 mg/dL Low 0.50-0.[address] [facility] Comment on above: Performed By: #### O SMO, LD, MG, JESUS, TSHX, LIVP, B12FOL, LACTIC, FT4, BMP #### [facility] [employer] [address] [place] [phone] [employer] Operator: Tato Ibarra MD GFR/1.73 sq M.predicted among non-blacks MDRD (S/P/Bld) [Vol rate/Area] mL/min/{1.73_m2} Normal >[address] [facility] Comment [...] TSHX, LIVP, B12FOL, LACTIC, FT4, BMP #### [employer] [address] [place] [address] [phone] [employer] Operator: Tato Ibarra MD Glucose [Mass/Vol] 86 mg/dL Normal 74-[address] [facility] Comment on above: Performed By: #### O SMO, LD, MG, JESUS, TSHX, LIVP, B12FOL, LACTIC, FT4, BMP #### [facility] [address] [place] [address] [employer] Operator: Tato Ibarra MD Potassium [Moles/Vol] 3.3 mmol/L Low 3.7-5.[address] [facility] Comment on above: Performed By: #### O SMO, LD, MG, JESUS, TSHX, LIVP, B12FOL, LACTIC, FT4, BMP #### [facility] [address] [place] [address] [phone] [employer] Operator: Tato Ibarra MD Sodium [Moles/Vol] 139 mmol/L Normal 136-[address] [facility] Comment on above: Performed By: #### O SMO, LD, MG, JESUS, TSHX, LIVP, B12FOL, LACTIC, FT4, BMP #### [facility] [employer] [address] [place] [phone] [employer] Operator: Tato Ibarra MD Urea nitrogen [Mass/Vol] mg/dL Low 6-[address] [facility] Comment on above: Performed By: #### O SMO, LD, MG, JESUS, TSHX, LIVP, B12FOL, LACTIC, FT4, BMP #### [employer] [address] [place] [phone] [employer] Operator: Tato Ibarra MD Basic Metabolic Panel w/ Ref jacinto to MGon 01-01-2024 Anion gap [Moles/Vol] 9 mmol/L 9 - 16 mmol/L [facility] Calcium [Mass/Vol] 8.5 mg/dL Low 8.6 - 10.4 mg/dL [facility] Chloride [Moles/Vol] 107 mmol/L 98 - 107 mmol/L [facility] CO2 [Moles/Vol] 23 mmol/L 20 - 31 mmol/L [facility] Creatinine [Mass/Vol] 0.3 mg/dL Low 0.50 - 0.90 mg/dL [facility] Otis Maciel - PIN[facility] Comment on above: These results are [...] [Mass/Vol] 86 mg/dL 74 - 99 mg/dL [facility] Potassium [Moles/Vol] 3.3 mmol/L Low 3.7 - 5.3 mmol/L [facility] Sodium [Moles/Vol] 139 mmol/L 136 - 145 mmol/L [facility] Urea nitrogen [Mass/Vol] mg/dL Low 6 - 20 mg/dL [facility] CBC with Auto Differentialon 01-01-2024 Basophils (Bld) [#/Vol] 0.00 10*3/uL [facility] Basophils/100 WBC (Bld) 0 % 0 - 2 % [facility] Eosinophils (Bld) [#/Vol] 0.00 10*3/uL [facility] Eosinophils/100 WBC (Bld) 0 % Low 1 - 4 % [facility] Erythrocyte distribution width (RBC) [Ratio] 22.1 % High 11.8 - 14.4 % [facility] Hematocrit (Bld) [Volume fraction] 29.9 % Low 36.3 - 47.1 % [facility] Comment on above: TEST CONFIRMED Hemoglobin (Bld) [Mass/Vol] 10.2 g/dL Low 11.9 - 15.1 g/dL [facility] Comment on above: TEST CONFIRMED Immature granulocytes (Bld) [#/Vol] 0.07 10*3/uL [facility] Immature granulocytes/100 WBC (Bld) 1 % High 0 [facility] Interpretation and review of laboratory results Abnormal [facility] Lymphocytes/100 WBC (Bld) 17 % Low 24 - 43 % [facility] Lymphocytes/100 WBC (Bld) 1.11 % [facility] MCH (RBC) [Entitic mass] 31.6 pg 25.2 - 33.5 pg [facility] MCHC (RBC) [Mass/Vol] 34.1 g/dL 28.4 - 34.8 g/dL [facility] MCV (RBC) [Entitic vol] 92.6 fL 82.6 - 102.9 fL [facility] Monocytes/100 WBC (Bld) 6 % 3 - 12 % [facility] Monocytes/100 WBC (Bld) 0.39 % [facility] Morphology Ritesh (Bld) [Interp] Normal [facility] Neutrophils/100 WBC (Bld) 76 % High 36 - 65 % [facility] Nucleated RBC/100 WBC (Bld) [Ratio] 0.0 % 0.0 per 100 WBC [facility] Platelet mean volume (Bld) [Entitic vol] 9.5 fL 8.1 - 13.5 fL [facility] Platelets (Bld) [#/Vol] 222 10*3/uL [facility] RBC (Bld) [#/Vol] 3.23 10*6/uL Low 3.95 - 5.11 m/uL [facility] Segmented neutrophils/100 WBC (Bld) 4.93 % [facility] WBC other (Bld) [#/Vol] 6.5 [facility] Basophils (Bld) [#/Vol] 0.03 10*3/uL [facility] Basophils/100 WBC (Bld) 1 % 0 - 2 % [facility] Eosinophils (Bld) [#/Vol] 0.14 10*3/uL [facility] Eosinophils/100 WBC (Bld) 3 % 1 - 4 % [facility] Erythrocyte distribution width (RBC) [Ratio] 18.6 % High 11.8 - 14.4 % [facility] Hematocrit (Bld) [Volume fraction] 32.5 % Low 36.3 - 47.1 % [facility] Hemoglobin (Bld) [Mass/Vol] 10.6 g/dL Low 11.9 - 15.1 g/dL [facility] Immature granulocytes (Bld) [#/Vol] [facility] Immature granulocytes/100 WBC (Bld) 0 % 0 [facility] Interpretation and review of laboratory results Abnormal [facility] Lymphocytes/100 WBC (Bld) 29 % 24 - 43 % [facility] Lymphocytes/100 WBC (Bld) 1.44 % [facility] MCH (RBC) [Entitic mass] 33.5 pg 25.2 - 33.5 pg [facility] MCHC (RBC) [Mass/Vol] 32.6 g/dL 28.4 - 34.8 g/dL [facility] MCV (RBC) [Entitic vol] 102.8 fL 82.6 - 102.9 fL [facility] Monocytes/100 WBC (Bld) 11 % 3 - 12 % [facility] Monocytes/100 WBC (Bld) 0.54 % [facility] Neutrophils/100 WBC (Bld) 56 % 36 - 65 % [facility] Nucleated RBC/100 WBC (Bld) [Ratio] 0.0 % 0.0 per 100 WBC [facility] Platelet mean volume (Bld) [Entitic vol] 9.5 fL 8.1 - 13.5 fL [facility] Platelets (Bld) [#/Vol] 220 10*3/uL [facility] RBC (Bld) [#/Vol] 3.16 10*6/uL Low 3.95 - 5.11 m/uL [facility] RBC (Bld) [#/Vol] ANISOCYTOSIS PRESENT [facility] Segmented neutrophils/100 WBC (Bld) 2.72 % [facility] WBC other (Bld) [#/Vol] 4.9 [facility] CBC with Diffon 01-01-2024 Abs. Basophil 0.00 k/uL Normal 0.00-0.[address] [facility] Comment on above: Performed By: #### O SMO, LD, MG, JESUS, TSHX, LIVP, B12FOL, LACTIC, FT4, BMP #### [address] [address] [employer] Operator: Tato Ibarra MD Abs.Imm.Granulocyte 0.07 k/uL Normal 0.00-0.[address] [facility] Comment on above: Performed By: #### O SMO, LD, MG, JESUS, TSHX, LIVP, B12FOL, LACTIC, FT4, BMP #### [place] [address] [employer] Operator: Tato Ibarra MD Abs.Neutrophil (Seg) 4.93 k/uL Normal 1.50-8.[address] [facility] Comment on above: Performed By: #### O SMO, LD, MG, JESUS, TSHX, LIVP, B12FOL, LACTIC, FT4, BMP #### [place] [address] [employer] Operator: Tato Ibarra MD Basophils/100 WBC (Bld) 0 % Normal 0-[address] [facility] Comment on above: Performed By: #### O SMO, LD, MG, JESUS, TSHX, LIVP, B12FOL, LACTIC, FT4, BMP #### [place] [address] [employer] Operator: Tato Ibarra MD Eosinophils (Bld) [#/Vol] 0.00 10*3/uL Normal 0.00-0.[address] [facility] Comment on above: Performed By: #### O SMO, LD, MG, JESUS, TSHX, LIVP, B12FOL, LACTIC, FT4, BMP #### [address] [address] [employer] Operator: Tato Ibarra MD Eosinophils/100 WBC (Bld) 0 % Low 1-[address] [facility] Comment on above: Performed By: #### O SMO, LD, MG, JESUS, TSHX, LIVP, B12FOL, LACTIC, FT4, BMP #### [address] [address] [employer] Operator: Tato Ibarra MD Immature granulocytes/100 WBC (Bld) 1 % High [address] [facility] Comment on above: Performed By: #### O SMO, LD, MG, JESUS, TSHX, LIVP, B12FOL, LACTIC, FT4, BMP #### [address] [address] [employer] Operator: Tato Ibarra MD Lymphocytes (Bld) [#/Vol] 1.11 10*3/uL Normal 1.10-3.[address] [facility] Comment on above: Performed By: #### O SMO, LD, MG, JESUS, TSHX, LIVP, B12FOL, LACTIC, FT4, BMP #### [address] [address] [employer] Operator: Tato Ibarra MD Lymphocytes/100 WBC (Bld) 17 % Low 24-[address] [facility] Comment on above: Performed By: #### O SMO, LD, MG, JESUS, TSHX, LIVP, B12FOL, LACTIC, FT4, BMP #### [address] [address] [employer] Operator: Tato Ibarra MD Monocytes (Bld) [#/Vol] 0.39 10*3/uL Normal 0.10-1.[address] [facility] Comment on above: Performed By: #### O SMO, LD, MG, JESUS, TSHX, LIVP, B12FOL, LACTIC, FT4, BMP #### [address] [address] [employer] Operator: Tato Ibarra MD Monocytes/100 WBC (Bld) 6 % Normal 3-[address] [facility] Comment on above: Performed By: #### O SMO, LD, MG, JESUS, TSHX, LIVP, B12FOL, LACTIC, FT4, BMP #### [address] [address] [employer] Operator: Tato Ibarra MD Morphology Ritesh (Bld) [Interp] Normal Normal [facility] Comment on above: Performed By: #### O SMO, LD, MG, JESUS, TSHX, LIVP, B12FOL, LACTIC, FT4, BMP #### [address] [address] [employer] Operator: Tato Ibarra MD Neutrophil (Seg) 76 % High 36-65 [facility] Comment on above: Performed By: #### O SMO, LD, MG, JESUS, TSHX, LIVP, B12FOL, LACTIC, FT4, BMP #### [address] [address] [employer] Operator: Tato Ibarra MD Erythrocyte distribution width (RBC) [Ratio] 22.1 % High 11.8-14.[address] [facility] Comment on above: Performed By: #### O SMO, LD, MG, JESUS, TSHX, LIVP, B12FOL, LACTIC, FT4, BMP #### [address] [address] [employer] Operator: Tato Ibarra MD Hematocrit (Bld) [Volume fraction] 29.9 % Low 36.3-47.[address] [facility] Comment on above: Result Comment: TEST CONFIRMED Performed By: #### O SMO, LD, MG, JESUS, TSHX, LIVP, B12FOL, LACTIC, FT4, BMP #### [address] [address] [employer] Operator: Tato Ibarra MD Hemoglobin (Bld) [Mass/Vol] 10.2 g/dL Low 11.9-15.[address] [facility] Comment on above: Result Comment: TEST CONFIRMED Performed By: #### O SMO, LD, MG, JESUS, TSHX, LIVP, B12FOL, LACTIC, FT4, BMP #### [address] [phone] [employer] Operator: Tato Ibarra MD MCH (RBC) [Entitic mass] 31.6 pg Normal 25.2-33.[address] [facility] Comment on above: Performed By: #### O SMO, LD, MG, JESUS, TSHX, LIVP, B12FOL, LACTIC, FT4, BMP #### [address] [phone] [employer] Operator: Tato Ibarra MD MCHC (RBC) [Mass/Vol] 34.1 g/dL Normal 28.4-34.[address] [facility] Comment on above: Performed By: #### O SMO, LD, MG, JESUS, TSHX, LIVP, B12FOL, LACTIC, FT4, BMP #### [place] [phone] [employer] Operator: Tato Ibarra MD MCV (RBC) [Entitic vol] 92.6 fL Normal 82.6-102.[address] [facility] Comment on above: Performed By: #### O SMO, LD, MG, JESUS, TSHX, LIVP, B12FOL, LACTIC, FT4, BMP #### [address] [phone] [employer]: Tato Ibarra MD NRBC Automated 0.0 per 100 WBC Normal 0.[address] [facility] Comment on above: Performed By: #### O SMO, LD, MG, JESUS, TSHX, LIVP, B12FOL, LACTIC, FT4, BMP #### [address] [phone] [employer] Operator: Tato Ibarra MD Platelet mean volume (Bld) [Entitic vol] 9.5 fL Normal 8.1-13.[address] [facility] Comment on above: Performed By: #### O SMO, LD, MG, JESUS, TSHX, LIVP, B12FOL, LACTIC, FT4, BMP #### [address] [address] [employer] Operator: Tato Ibarra MD Platelets (d) [#/Vol] 222 10*3/uL Normal 138-[address] [facility] Comment on above: Performed By: #### O SMO, LD, MG, JESUS, TSHX, LIVP, B12FOL, LACTIC, FT4, BMP #### [address] [address] [employer] Operator: Tato Ibarra MD RBC (d) [#/Vol] 3.23 10*6/uL Low 3.95-5.[address] [facility] Comment on above: Performed By: #### O SMO, LD, MG, JESUS, TSHX, LIVP, B12FOL, LACTIC, FT4, BMP #### [address] [address] [employer]: Tato Ibarra MD WBC (d) [#/Vol] 6.5 10*3/uL Normal 3.5-11.[address] [facility] Comment on above: Performed By: #### O SMO, LD, MG, JESUS, TSHX, LIVP, B12FOL, LACTIC, FT4, BMP #### [address] [address] [employer] Operator: Tato Ibarra MD Abs. Basophil 0.03 k/uL Normal 0.00-0.[address] [facility] Comment on above: Performed By: #### O SMO, LD, MG, JESUS, TSHX, LIVP, B12FOL, LACTIC, FT4, BMP #### [address] [address] [employer] Operator: Tato Ibarra MD Abs.Imm.Granulocyte <0.03 Normal 0.00-0.[address] [facility] Comment on above: Performed By: #### O SMO, LD, MG, JESUS, TSHX, LIVP, B12FOL, LACTIC, FT4, BMP #### [address] [address] [employer] Operator: Tato Ibarra MD Abs.Neutrophil (Seg) 2.72 k/uL Normal 1.50-8.[address] [facility] Comment on above: Performed By: #### O SMO, LD, MG, JESUS, TSHX, LIVP, B12FOL, LACTIC, FT4, BMP #### [place] [address] [employer] Operator: Tato Ibarra MD Basophils/100 WBC (Bld) 1 % Normal 0-[address] [facility] Comment on above: Performed By: #### O SMO, LD, MG, JESUS, TSHX, LIVP, B12FOL, LACTIC, FT4, BMP #### [facility] [employer] [address] [place] [address] [employer] Operator: Tato Ibarra MD Eosinophils (Bld) [#/Vol] 0.14 10*3/uL Normal 0.00-0.[address] [facility] Comment on above: Performed By: #### O SMO, LD, MG, JESUS, TSHX, LIVP, B12FOL, LACTIC, FT4, BMP #### [place] [address] [employer] Operator: Tato Ibarra MD Eosinophils/100 WBC (Bld) 3 % Normal 1-[address] [facility] Comment on above: Performed By: #### O SMO, LD, MG, JESUS, TSHX, LIVP, B12FOL, LACTIC, FT4, BMP #### [facility] [employer] [address] [place] [address] [employer] Operator: Tato Ibarra MD Erythrocyte distribution width (RBC) [Ratio] 18.6 % High 11.8-14.[address] [facility] Comment on above: Performed By: #### O SMO, LD, MG, JESUS, TSHX, LIVP, B12FOL, LACTIC, FT4, BMP #### [address] [address] [employer] Operator: Tato Ibarra MD Hematocrit (Bld) [Volume fraction] 32.5 % Low 36.3-47.[address] [facility] Comment on above: Performed By: #### O SMO, LD, MG, JESUS, TSHX, LIVP, B12FOL, LACTIC, FT4, BMP #### [address] [address] [employer] Operator: Tato Ibarra MD Hemoglobin (Bld) [Mass/Vol] 10.6 g/dL Low 11.9-15.[address] [facility] Comment on above: Performed By: #### O SMO, LD, MG, JESUS, TSHX, LIVP, B12FOL, LACTIC, FT4, BMP #### [address] [address] [employer]: Tato Ibarra MD Immature granulocytes/100 WBC (Bld) 0 % Normal [address] [facility] Comment on above: Performed By: #### O SMO, LD, MG, JESUS, TSHX, LIVP, B12FOL, LACTIC, FT4, BMP #### [address] [id number] [employer]: Tato Ibarra MD Lymphocytes (Bld) [#/Vol] 1.44 10*3/uL Normal 1.10-3.[address] [facility] Comment on above: Performed By: #### O SMO, LD, MG, JESUS, TSHX, LIVP, B12FOL, LACTIC, FT4, BMP #### [facility] [employer] [address] [place] [address] [employer]: Tato Ibarra MD Lymphocytes/100 WBC (Bld) 29 % Normal 24-[address] [facility] Comment on above: Performed By: #### O SMO, LD, MG, JESUS, TSHX, LIVP, B12FOL, LACTIC, FT4, BMP #### [address] [address] [employer]: Tato Ibarra MD MCH (RBC) [Entitic mass] 33.5 pg Normal 25.2-33.[address] [facility] Comment on above: Performed By: #### O SMO, LD, MG, JESUS, TSHX, LIVP, B12FOL, LACTIC, FT4, BMP #### [address] [address] [employer]: Tato Ibarra MD MCHC (RBC) [Mass/Vol] 32.6 g/dL Normal 28.4-34.[address] [facility] Comment on above: Performed By: #### O SMO, LD, MG, JESUS, TSHX, LIVP, B12FOL, LACTIC, FT4, BMP #### [address] [address] [employer]: Tato Ibarra MD MCV (RBC) [Entitic vol] 102.8 fL Normal 82.6-102.[address] [facility] Comment on above: Performed By: #### O SMO, LD, MG, JESUS, TSHX, LIVP, B12FOL, LACTIC, FT4, BMP #### [address] [phone] [employer] Operator: Tato Ibarra MD Monocytes (Bld) [#/Vol] 0.54 10*3/uL Normal 0.10-1.[address] [facility] Comment on above: Performed By: #### O SMO, LD, MG, JESUS, TSHX, LIVP, B12FOL, LACTIC, FT4, BMP #### [address] [id number] [employer] Operator: Tato Ibarra MD Monocytes/100 WBC (Bld) 11 % Normal 3-[address] [facility] Comment on above: Performed By: #### O SMO, LD, MG, JESUS, TSHX, LIVP, B12FOL, LACTIC, FT4, BMP #### [address] [address] [employer] Operator: Tato Ibarra MD Neutrophil (Seg) 56 % Normal 36-65 [facility] Comment on above: Performed By: #### O SMO, LD, MG, JESUS, TSHX, LIVP, B12FOL, LACTIC, FT4, BMP #### [facility] [employer] [address] [place] [address] [employer]: Tato Ibarra MD NRBC Automated 0.0 per 100 WBC Normal 0.[address] [facility] Comment on above: Performed By: #### O SMO, LD, MG, JESUS, TSHX, LIVP, B12FOL, LACTIC, FT4, BMP #### [address] [address] [employer] Operator: Tato Ibarra MD Platelet mean volume (Bld) [Entitic vol] 9.5 fL Normal 8.1-13.[address] [facility] Comment on above: Performed By: #### O SMO, LD, MG, JESUS, TSHX, LIVP, B12FOL, LACTIC, FT4, BMP #### [address] [address] [employer] Operator: Tato Ibarra MD Platelets (Bld) [#/Vol] 220 10*3/uL Normal 138-[address] [facility] Comment on above: Performed By: #### O SMO, LD, MG, JESUS, TSHX, LIVP, B12FOL, LACTIC, FT4, BMP #### [facility] [employer] [address] [place] [address] [employer] Operator: Tato Ibarra MD RBC (Bld) [#/Vol] 3.16 10*6/uL Low 3.95-5.[address] [facility] Comment on above: Performed By: #### O SMO, LD, MG, JESUS, TSHX, LIVP, B12FOL, LACTIC, FT4, BMP #### [facility] [employer] [address] [place] [address] [phone] [employer] Operator: Tato Ibarra MD RBC morphology finding Nom (Bld) ANISOCYTOSIS PRESENT Normal [facility] Comment on above: Performed By: #### O SMO, LD, MG, JESUS, TSHX, LIVP, B12FOL, LACTIC, FT4, BMP #### [address] [phone] [employer] Operator: aTto Ibarra MD WBC (Bld) [#/Vol] 4.9 10*3/uL Normal 3.5-11.[address] [facility] Comment on above: Performed By: #### O SMO, LD, MG, JESUS, TSHX, LIVP, B12FOL, LACTIC, FT4, BMP #### [facility] [employer] [address] [place] [address] [phone] [employer] Operator: Tato Ibarra MD CTA Abdominal vessels and Pe lvis vessels WO and W contrast [place] 01-01-2024 Radiology Study observation (narrative) [facility] Calcium, Ionicon 01-01-2024 Calcium [Moles/Vol] 1.13 mmol/L Normal 1.13-1.[address] [facility] Comment on above: Performed By: #### O SMO, LD, MG, JESUS, TSHX, LIVP, B12FOL, LACTIC, FT4, BMP #### [facility] [employer] [address] [place] [address] [phone] [employer] Operator: Tato Ibarra MD Calcium, Ionizedon 4 Calcium.ionized (Bld) [Moles/Vol] 1.13 mmol/L 1.13 - 1.33 mmol/L [facility] EKG 12 LeadOrdered By: Omar Hoover on 01-01-2024 Atrial Rate 87 BPM [facility] [employer] Work Phone: P Gary 35 degrees [place] [employer] Work Phone: P-R Interval 164 ms [facility] [employer] Work Phone: Q-T Interval 412 ms [facility] [employer] Work Phone: QRS Duration 82 ms [facility] [employer] Work Phone: QTc Calculation (Bazett) 495 ms [employer] Work Phone: R Gary 33 degrees [place] [employer] Work Phone: T Gary 25 degrees [employer] Work Phone: Ventricular Rate 87 BPM [facility] [employer] Work Phone: ZHANNA [employer] Work Phone: EKG 12 Leadon 01-01-2024 Normal sinus rhythm Nonspecific ST and T wave abnormality Prolonged QT Abnormal ECG When compared with ECG of 31-DEC-2023 16:00, No significant change was found [facility] STV Omar Villasenor MD - 01/01/2024 Normal sinus rhythm Nonspecific ST and T wave abnormality Prolonged QT Abnormal ECG When compared with ECG of 31-DEC-2023 16:00, No significant change was found [facility] [employer] Fecal Lactoferrinon 01-01-20 24 Fecal Lactoferrin POSITIVE for fecal lactoferrin, a marker for fecal leukocytes and an indicator Abnormal [employer] Comment on above: Result Comment: of i ntestinal inflammation. Performed By: #### P TT, PT #### [address] [place], [place] [id number] [employer] Operator: Tato Ibarra MD Fecal lactoferrinon 01-01-20 24 Interpretation and review of laboratory results Abnormal [employer] Lactoferrin Ql (Stl) POSITIVE for fecal lactoferrin, a marker for fecal leukocytes and an indicator of intestinal inflammation. Abnormal NEGATIVE for fecal lactoferrin. [facility] [employer] [facility] Glucose,Whole Bloodon 2023 Glucose [Mass/Vol] 111 mg/dL High 65-[address] [facility] Hemoglobin and Hematocriton 01-01-2024 Hematocrit (Bld) [Volume fraction] 24.2 % Low 36.3 - 47.1 % [facility] Hemoglobin (Bld) [Mass/Vol] 7.7 g/dL Low 11.9 - 15.1 g/dL [facility] Interpretation and review of laboratory results Abnormal [facility] Hematocrit (Bld) [Volume fraction] DUPLICATE ORDER 36.3 - 47.1 % [facility] Hemoglobin (Bld) [Mass/Vol] DUPLICATE ORDER 11.9 - 15.1 g/dL [facility] Hematocrit (Bld) [Volume fraction] 31.8 % Low 36.3 - 47.1 % [facility] Hemoglobin (Bld) [Mass/Vol] 10.3 g/dL Low 11.9 - 15.1 g/dL [facility] Interpretation and review of laboratory results Abnormal [facility] Hepatic Function Panelon Albumin [Mass/Vol] 2.8 g/dL Low 3.5 - 5.2 g/dL [facility] Albumin/Globulin [Mass ratio] 1.0 {ratio} 1.0 - 2.5 [facility] ALP [Catalytic activity/Vol] 161 U/L High 35 - 104 U/L [facility] ALT [Catalytic activity/Vol] 10 U/L 10 - 35 U/L [facility] AST [Catalytic activity/Vol] 40 U/L High 10 - 35 U/L [facility] Bilirubin [Mass/Vol] 0.3 mg/dL 0.00 - 1.20 mg/ dL [facility] Bilirubin.direct [Mass/Vol] mg/dL 0.0 - 0.2 mg/dL [facility] Bilirubin.indirect [Mass/Vol] Can not be calculated 0.0 - 1.0 mg/dL [facility] Globulin (S) [Mass/Vol] 2.2 g/dL [facility] Protein [Mass/Vol] 5.0 g/dL Low 6.6 - 8.7 g/dL [facility] Hgb/Hcton 01-01-2024 Hematocrit (Bld) [Volume fraction] 24.2 % Low 36.3-47.[address] [facility] Comment on above: Performed By: #### O SMO, LD, MG, JESUS, TSHX, LIVP, B12FOL, LACTIC, FT4, BMP #### [address] [address] [employer]: Tato Ibarra MD Hemoglobin (Bld) [Mass/Vol] 7.7 g/dL Low 11.9-15.[address] [facility] Comment on above: Performed By: #### O SMO, LD, MG, JESUS, TSHX, LIVP, B12FOL, LACTIC, FT4, BMP #### [address] [address] [employer]: Tato Ibarra MD Hematocrit DUPLICATE ORDER Normal 36.3-47.[address] [facility] Comment on above: Performed By: #### O SMO, LD, MG, JESUS, TSHX, LIVP, B12FOL, LACTIC, FT4, BMP #### [facility] [address] [place] [id number] [employer]: Tato Ibarra MD Hemoglobin DUPLICATE ORDER Normal 11.9-15.[address] [facility] Comment on above: Performed By: #### O SMO, LD, MG, JESUS, TSHX, LIVP, B12FOL, LACTIC, FT4, BMP #### [facility] [address] [place] [address] [employer]: Tato Ibarra MD Hematocrit (Bld) [Volume fraction] 31.8 % Low 36.3-47.[address] [facility] Comment on above: Performed By: #### O SMO, LD, MG, JESUS, TSHX, LIVP, B12FOL, LACTIC, FT4, BMP #### [address] [address] [employer] Operator: Tato Ibarra MD Hemoglobin (Bld) [Mass/Vol] 10.3 g/dL Low 11.9-15.[address] [facility] Comment on above: Performed By: #### O SMO, LD, MG, JESUS, TSHX, LIVP, B12FOL, LACTIC, FT4, BMP #### [facility] [address] [place] [address] [phone] [employer]: Tato Ibarra MD IR EMBOLIZATION HEMORRHAGEon 01-01-2024 Radiology Study observation (narrative) [facility] Lactate, Sepsison 01-01-2024 Lactic Acid, Sepsis, Whole Blood 0.9 mmol/L 0.5 - 1.9 mmol/L [facility] Lactic Acid,Sep Wbld 0.9 mmol/L Normal 0.5-1.[address] [facility] Comment on above: Performed By: #### O SMO, LD, MG, JESUS, TSHX, LIVP, B12FOL, LACTIC, FT4, BMP #### [facility] [address] [place] [address] [phone] [employer]: Tato Ibarra MD Liver Profileon 1 Albumin [Mass/Vol] 2.8 g/dL Low 3.5-5.[address] [facility] Comment on above: Performed By: #### O SMO, LD, MG, JESUS, TSHX, LIVP, B12FOL, LACTIC, FT4, BMP #### [facility] [address] [place] [address] [phone] [employer]: Tato Ibarra MD Albumin/Glob Ratio 1.0 Normal 1.0-2.[address] [facility] Comment on above: Performed By: #### O SMO, LD, MG, JESUS, TSHX, LIVP, B12FOL, LACTIC, FT4, BMP #### [facility] [address] [place] [address] [phone] [employer]: Tato Ibarra MD Alkaline Phos 161 U/L High 35-[address] [facility] Comment on above: Performed By: #### O SMO, LD, MG, JESUS, TSHX, LIVP, B12FOL, LACTIC, FT4, BMP #### [address] [address] [employer] Operator: Tato Ibarra MD ALT [Catalytic activity/Vol] 10 U/L Normal [address] [place] [address] Comment on above: Performed By: #### O SMO, LD, MG, JESUS, TSHX, LIVP, B12FOL, LACTIC, FT4, BMP #### [address] [address] [employer]: Tato Ibarra MD AST [Catalytic activity/Vol] 40 U/L High [address] [place] [address] Comment on above: Performed By: #### O SMO, LD, MG, JESUS, TSHX, LIVP, B12FOL, LACTIC, FT4, BMP #### [address] [address] [employer]: Tato Ibarra MD Bilirubin [Mass/Vol] 0.3 mg/dL Normal 0.00-1.[address] [facility] Comment on above: Performed By: #### O SMO, LD, MG, JESUS, TSHX, LIVP, B12FOL, LACTIC, FT4, BMP #### [address] [address] [employer] Operator: Tato Ibarra MD Bilirubin, Indirect Can not be calculated Normal 0.0-1.[address] [facility] Comment on above: Performed By: #### O SMO, LD, MG, JESUS, TSHX, LIVP, B12FOL, LACTIC, FT4, BMP #### [address] [address] [employer]: Tato Ibarra MD Bilirubin.indirect [Mass/Vol] mg/dL Normal 0.0-0.[address] [facility] Comment on above: Performed By: #### O SMO, LD, MG, JESUS, TSHX, LIVP, B12FOL, LACTIC, FT4, BMP #### [facility] [address] [place] [address] [phone] [employer]: Tato Ibarra MD Globulin (S) [Mass/Vol] 2.2 g/dL Normal [facility] Comment on above: Performed By: #### O SMO, LD, MG, JESUS, TSHX, LIVP, B12FOL, LACTIC, FT4, BMP #### [facility] [address] [place] [address] [employer]: Tato Ibarra MD Protein [Mass/Vol] 5.0 g/dL Low 6.6-8.[address] [facility] Comment on above: Performed By: #### O SMO, LD, MG, JESUS, TSHX, LIVP, B12FOL, LACTIC, FT4, BMP #### [address] [phone] [employer]: Tato Ibarra MD MRSA, DNA, Nasalon Specimen Description .NASAL SWAB Normal [facility] Comment on above: Performed By: #### O SMO, LD, MG, JESUS, TSHX, LIVP, B12FOL, LACTIC, FT4, BMP #### [facility] [address] [place] [address] [phone] [employer]: Tato Ibarra MD Magnesiumon 01-01-2024 Magnesium [Mass/Vol] 2.0 mg/dL 1.6 - 2.6 mg/dL [facility] Magnesium [Mass/Vol] 2.0 mg/dL Normal 1.6-2.[address] [facility] Comment on above: Performed By: #### O SMO, LD, MG, JESUS, TSHX, LIVP, B12FOL, LACTIC, FT4, BMP #### [facility] [address] [place] [address] [phone] [employer]: Tato Ibarra MD No Panel Informationon 12-31 [facility] Interpretation and review of laboratory results Abnormal [facility] POC Glucose Fingerstickon Glucose [Mass/Vol] 111 mg/dL High 65 - 105 mg/dL [facility] Interpretation and review of laboratory results Abnormal [facility] PREVIOUS SPECIMENon 01-01-20 24 [facility] PTon 01-01-2024 INR Coag (PPP) [Relative time] 0.9 {INR} Normal [facility] Comment on above: Result Comment: Therapeutic Range: Moderate Anticoagulant Intensity: INR = 2.0-3.0 High Anticoagulant Intensity: INR = 2.5-3.5 Performed By: #### P TT, PT #### [facility] [address] [place] [address] [phone] [employer]: Tato Ibarra MD PT Coag (PPP) [Time] 12.3 s Normal 11.7-14.[address] [facility] Comment on above: Performed By: #### P TT, PT #### [facility] [address] [place] [phone] [employer]: Tato Ibarra MD Protime-INRon 01-01-2024 INR Coag (PPP) [Relative time] 0.9 {INR} [facility] Comment on above: Therapeutic Range: Moderate Anticoagulant Intensity: INR = 2.0-3.0 High Anticoagulant Intensity: INR = 2.5-3.5 PT Coag (PPP) [Time] 12.3 s [facility] Type + Screenon 01-01-2024 Type + Screen Sample Expiration 01/03/2024,2359 Arm Band Number [id number] ABO/Rh(D) O NEGATIVE Antibody Screen NEGATIVE Unit Number [id number] Blood Component Type Leukocyte Reduced Red Cell Unit Division 00 Status of Unit TRANSFUSED Transfusion Status OK TO TRANSFUSE Crossmatch Result COMPATIBLE Unit Number [id number] Blood Component Type Leukocyte Reduced Red Cell Unit Division 00 Status of Unit TRANSFUSED Transfusion Status OK TO TRANSFUSE Crossmatch Result COMPATIBLE Normal [facility] Comment on above: Performed By: #### P TT, PT #### [facility] [address] [place] [address] [phone] [employer]: Tato Ibarra MD APTTon 12-31-2023 aPTT Coag (Bld) [Time] 27.6 s [facility] Comment on above: IV Heparin Therapy Range: 66.0-92.0 sec aPTT Coag (Bld) [Time] 27.6 s Normal 23.0-36.[address] [facility] Comment on above: Result Comment: IV Heparin Therapy Range: 66.0-92.0 sec Performed By: #### O SMO, LD, MG, JESUS, TSHX, LIVP, B12FOL, LACTIC, FT4, BMP #### [facility] [address] [place] [address] [phone] [employer]: Tato Ibarra MD aPTT Coag (Bld) [Time] 27.8 s [facility] Comment on above: IV Heparin Therapy Range: 66.0-92.0 sec aPTT Coag (Bld) [Time] 27.8 s Normal 23.0-36.[address] [facility] Comment on above: Result Comment: IV Heparin Therapy Range: 66.0-92.0 sec Performed By: #### O SMO, LD, MG, JESUS, TSHX, LIVP, B12FOL, LACTIC, FT4, BMP #### [facility] [address] [place] [address] [phone] [employer]: Tato Ibarra MD B12/Folate Panelon Cobalamin (Vitamin B12) [Mass/Vol] 271 pg/mL Normal 232-[address] [facility] Comment on above: Performed By: #### P TT, PT #### [facility] [address] [place] [address] [phone] [employer]: Tato Ibarra MD Folic Acid 5.4 ng/mL Normal 4.8-24.[address] [facility] Comment on above: Performed By: #### P TT, PT #### [facility] [address] [place] [address] [employer] Operator: Tato Ibarra MD BLOOD BANK SPECIMENon 2023 [facility] Basic Metabolic Panelon 08- Anion gap [Moles/Vol] 10 mmol/L 9 - 16 mmol/L [facility] Calcium [Mass/Vol] 8.5 mg/dL Low 8.6 - 10.4 mg/dL [facility] Chloride [Moles/Vol] 105 mmol/L 98 - 107 mmol/L [facility] CO2 [Moles/Vol] 20 mmol/L 20 - 31 mmol/L [facility] Creatinine [Mass/Vol] 0.4 mg/dL Low 0.50 - 0.90 mg/dL [facility] Est, Otis Ballard Rate - PINF [facility] Comment on above: These results are [...] [Mass/Vol] 89 mg/dL 74 - 99 mg/dL [facility] Potassium [Moles/Vol] 3.7 mmol/L 3.7 - 5.3 mmol/L [facility] Sodium [Moles/Vol] 135 mmol/L Low 136 - 145 mmol/L [facility] Urea nitrogen [Mass/Vol] 2 mg/dL Low 6 - 20 mg/dL [facility] Basic Metabolic Profon 12-30 Anion gap [Moles/Vol] 10 mmol/L Normal -[address] [facility] Comment on above: Performed By: #### O SMO, LD, MG, JESUS, TSHX, LIVP, B12FOL, LACTIC, FT4, BMP #### [facility] [address] [place], [place] [phone] [employer]: Tato Ibarra MD Calcium [Mass/Vol] 8.5 mg/dL Low 8.6-10.[address] [facility] Comment on above: Performed By: #### O SMO, LD, MG, JESUS, TSHX, LIVP, B12FOL, LACTIC, FT4, BMP #### [address] [phone] [employer] Operator: Tato Ibarra MD Chloride [Moles/Vol] 105 mmol/L Normal 98-[address] [facility] Comment on above: Performed By: #### O SMO, LD, MG, JESUS, TSHX, LIVP, B12FOL, LACTIC, FT4, BMP #### [address] [phone] [employer] Operator: Tato Ibarra MD CO2 [Moles/Vol] 20 mmol/L Normal 20-[address] [facility] Comment on above: Performed By: #### O SMO, LD, MG, JESUS, TSHX, LIVP, B12FOL, LACTIC, FT4, BMP #### [address] [phone] [employer] Operator: Tato Ibarra MD Creatinine [Mass/Vol] 0.4 mg/dL Low 0.50-0.[address] [facility] Comment on above: Performed By: #### O SMO, LD, MG, JESUS, TSHX, LIVP, B12FOL, LACTIC, FT4, BMP #### [facility] [address] [place] [address] [phone] [employer]: Tato Ibarra MD GFR/1.73 sq M.predicted among non-blacks MDRD (S/P/Bld) [Vol rate/Area] mL/min/{1.73_m2} Normal >[address] [facility] Comment [...] TSHX, LIVP, B12FOL, LACTIC, FT4, BMP #### [address] [address] [employer]: Tato Ibarra MD Glucose [Mass/Vol] 89 mg/dL Normal 74-[address] [facility] Comment on above: Performed By: #### O SMO, LD, MG, JESUS, TSHX, LIVP, B12FOL, LACTIC, FT4, BMP #### [address] [address] [employer] Operator: Tato Ibarra MD Potassium [Moles/Vol] 3.7 mmol/L Normal 3.7-5.[address] [facility] Comment on above: Performed By: #### O SMO, LD, MG, JESUS, TSHX, LIVP, B12FOL, LACTIC, FT4, BMP #### [address] [address] [employer] Operator: Tato Ibarra MD Sodium [Moles/Vol] 135 mmol/L Low 136-[address] [facility] Comment on above: Performed By: #### O SMO, LD, MG, JESUS, TSHX, LIVP, B12FOL, LACTIC, FT4, BMP #### [facility] [address] [place] [phone] [employer] Operator: Tato Ibarra MD Urea nitrogen [Mass/Vol] 2 mg/dL Low 6-[address] [facility] Comment on above: Performed By: #### O SMO, LD, MG, JESUS, TSHX, LIVP, B12FOL, LACTIC, FT4, BMP #### [facility] [address] [place] [address] [employer]: Tato Ibarra MD C DIFF TOXIN/ANTIGENon 12-30 C. difficile glutamate dehydrogenase and toxins A+B IA.rapid Ql (Stl) Negative NEGATIVE [facility] Comment on above: No C. difficile anti gen and Toxin Detected. Specimen Description .FECES [facility] C diff Ag + Toxinon 12-31-19 C diff Ag + Toxin Negative Normal NEG [facility] Comment on above: Result Comment: No C . difficile antigen and Toxin Detected. Performed By: #### P TT, PT #### [facility] [address] [place], [place] [phone] [employer] Operator: Tato Ibarra MD Specimen Description .FECES Normal [facility] Comment on above: Performed By: #### P TT, PT #### [facility] [address] [place] [address] [employer] Operator: Tato Ibarra MD CBC with Auto Differentialon 12-31-2023 Basophils (Bld) [#/Vol] 0.03 10*3/uL [facility] Basophils/100 WBC (Bld) 1 % 0 - 2 % [facility] Eosinophils (Bld) [#/Vol] 0.12 10*3/uL [facility] Eosinophils/100 WBC (Bld) 2 % 1 - 4 % [facility] Erythrocyte distribution width (RBC) [Ratio] 18.8 % High 11.8 - 14.4 % [facility] Hematocrit (Bld) [Volume fraction] 33.2 % Low 36.3 - 47.1 % [facility] Hemoglobin (Bld) [Mass/Vol] 10.9 g/dL Low 11.9 - 15.1 g/dL [facility] Immature granulocytes (Bld) [#/Vol] 0.03 10*3/uL [facility] Immature granulocytes/100 WBC (Bld) 1 % High 0 [facility] Interpretation and review of laboratory results Abnormal [facility] Lymphocytes/100 WBC (Bld) 27 % 24 - 43 % [facility] Lymphocytes/100 WBC (Bld) 1.41 % [facility] MCH (RBC) [Entitic mass] 34.1 pg High 25.2 - 33.5 pg [facility] MCHC (RBC) [Mass/Vol] 32.8 g/dL 28.4 - 34.8 g/dL [facility] MCV (RBC) [Entitic vol] 103.8 fL High 82.6 - 102.9 fL [facility] Monocytes/100 WBC (Bld) 9 % 3 - 12 % [facility] Monocytes/100 WBC (Bld) 0.44 % [facility] Neutrophils/100 WBC (Bld) 60 % 36 - 65 % [facility] Nucleated RBC/100 WBC (Bld) [Ratio] 0.0 % 0.0 per 100 WBC [facility] Platelet mean volume (Bld) [Entitic vol] 9.2 fL 8.1 - 13.5 fL [facility] Platelets (Bld) [#/Vol] 197 10*3/uL [facility] RBC (Bld) [#/Vol] 3.20 10*6/uL Low 3.95 - 5.11 m/uL [facility] RBC (Bld) [#/Vol] ANISOCYTOSIS PRESENT [facility] RBC (Bld) [#/Vol] MACROCYTOSIS PRESENT [facility] Segmented neutrophils/100 WBC (Bld) 3.14 % [facility] WBC other (Bld) [#/Vol] 5.2 [facility] CBC with Diffon 12-31-2023 Abs. Basophil 0.03 k/uL Normal 0.00-0.[address] [facility] Comment on above: Performed By: #### O SMO, LD, MG, JESUS, TSHX, LIVP, B12FOL, LACTIC, FT4, BMP #### [facility] [place] [address] [employer] Operator: Tato Ibarra MD Abs.Imm.Granulocyte 0.03 k/uL Normal 0.00-0.[address] [facility] Comment on above: Performed By: #### O SMO, LD, MG, JESUS, TSHX, LIVP, B12FOL, LACTIC, FT4, BMP #### [address] [address] [employer]: Tato Ibarra MD Abs.Neutrophil (Seg) 3.14 k/uL Normal 1.50-8.[address] [facility] Comment on above: Performed By: #### O SMO, LD, MG, JESUS, TSHX, LIVP, B12FOL, LACTIC, FT4, BMP #### [address] [address] [employer]: Tato Ibarra MD Basophils/100 WBC (Bld) 1 % Normal 0-[address] [facility] Comment on above: Performed By: #### O SMO, LD, MG, JESUS, TSHX, LIVP, B12FOL, LACTIC, FT4, BMP #### [place] [address] [employer]: Tato Ibarra MD Eosinophils (Bld) [#/Vol] 0.12 10*3/uL Normal 0.00-0.[address] [facility] Comment on above: Performed By: #### O SMO, LD, MG, JESUS, TSHX, LIVP, B12FOL, LACTIC, FT4, BMP #### [facility] [address] [place] [address] [employer]: Tato Ibarra MD Eosinophils/100 WBC (Bld) 2 % Normal 1-[address] [facility] Comment on above: Performed By: #### O SMO, LD, MG, JESUS, TSHX, LIVP, B12FOL, LACTIC, FT4, BMP #### [place] [address] [employer]: Tato Ibarra MD Erythrocyte distribution width (RBC) [Ratio] 18.8 % High 11.8-14.[address] [facility] Comment on above: Performed By: #### O SMO, LD, MG, JESUS, TSHX, LIVP, B12FOL, LACTIC, FT4, BMP #### [address] [address] [employer]: Tato Ibarra MD Hematocrit (Bld) [Volume fraction] 33.2 % Low 36.3-47.[address] [facility] Comment on above: Performed By: #### O SMO, LD, MG, JESUS, TSHX, LIVP, B12FOL, LACTIC, FT4, BMP #### [address] [address] [employer]: Tato Ibarra MD Hemoglobin (Bld) [Mass/Vol] 10.9 g/dL Low 11.9-15.[address] [facility] Comment on above: Performed By: #### O SMO, LD, MG, JESUS, TSHX, LIVP, B12FOL, LACTIC, FT4, BMP #### [place] [address] [employer] Operator: Tato Ibarra MD Immature granulocytes/100 WBC (Bld) 1 % High [address] [facility] Comment on above: Performed By: #### O SMO, LD, MG, JESUS, TSHX, LIVP, B12FOL, LACTIC, FT4, BMP #### [facility] [address] [place] [address] [employer] Operator: Tato Ibarra MD Lymphocytes (Bld) [#/Vol] 1.41 10*3/uL Normal 1.10-3.[address] [facility] Comment on above: Performed By: #### O SMO, LD, MG, JESUS, TSHX, LIVP, B12FOL, LACTIC, FT4, BMP #### [place] [address] [employer] Operator: Tato Ibarra MD Lymphocytes/100 WBC (Bld) 27 % Normal 24-[address] [facility] Comment on above: Performed By: #### O SMO, LD, MG, JESUS, TSHX, LIVP, B12FOL, LACTIC, FT4, BMP #### [address] [phone] [employer] Operator: Tato Ibarra MD MCH (RBC) [Entitic mass] 34.1 pg High 25.2-33.[address] [facility] Comment on above: Performed By: #### O SMO, LD, MG, JESUS, TSHX, LIVP, B12FOL, LACTIC, FT4, BMP #### [address] [phone] [employer]: Tato Ibarra MD MCHC (RBC) [Mass/Vol] 32.8 g/dL Normal 28.4-34.[address] [facility] Comment on above: Performed By: #### O SMO, LD, MG, JESUS, TSHX, LIVP, B12FOL, LACTIC, FT4, BMP #### [address] [phone] [employer]: Tato Ibarra MD MCV (RBC) [Entitic vol] 103.8 fL High 82.6-102.[address] [facility] Comment on above: Performed By: #### O SMO, LD, MG, JESUS, TSHX, LIVP, B12FOL, LACTIC, FT4, BMP #### [address] [phone] [employer]: Tato Ibarra MD Monocytes (Bld) [#/Vol] 0.44 10*3/uL Normal 0.10-1.[address] [facility] Comment on above: Performed By: #### O SMO, LD, MG, JESUS, TSHX, LIVP, B12FOL, LACTIC, FT4, BMP #### [place] [address] [employer] Operator: Tato Ibarra MD Monocytes/100 WBC (Bld) 9 % Normal 3-[address] [facility] Comment on above: Performed By: #### O SMO, LD, MG, JESUS, TSHX, LIVP, B12FOL, LACTIC, FT4, BMP #### [facility] [address] [place] [address] [employer]: Tato Ibarra MD Neutrophil (Seg) 60 % Normal 36-65 [facility] Comment on above: Performed By: #### O SMO, LD, MG, JESUS, TSHX, LIVP, B12FOL, LACTIC, FT4, BMP #### [address] [address] [employer] Operator: Tato Ibarra MD NRBC Automated 0.0 per 100 WBC Normal 0.[address] [facility] Comment on above: Performed By: #### O SMO, LD, MG, JESUS, TSHX, LIVP, B12FOL, LACTIC, FT4, BMP #### [facility] [address] [place] [address] [employer]: Tato Ibarra MD Platelet mean volume (Bld) [Entitic vol] 9.2 fL Normal 8.1-13.[address] [facility] Comment on above: Performed By: #### O SMO, LD, MG, JESUS, TSHX, LIVP, B12FOL, LACTIC, FT4, BMP #### [facility] [address] [place] [address] [employer]: Tato Ibarra MD Platelets (Bld) [#/Vol] 197 10*3/uL Normal 138-[address] [facility] Comment on above: Performed By: #### O SMO, LD, MG, JESUS, TSHX, LIVP, B12FOL, LACTIC, FT4, BMP #### [facility] [address] [place] [address] [employer]: Tato Ibarra MD RBC (Bld) [#/Vol] 3.20 10*6/uL Low 3.95-5.[address] [facility] Comment on above: Performed By: #### O SMO, LD, MG, JESUS, TSHX, LIVP, B12FOL, LACTIC, FT4, BMP #### [facility] [place], [place] [phone] [employer] Operator: Tato Ibarra MD RBC morphology finding Nom (Bld) ANISOCYTOSIS PRESENT Normal [facility] Comment on above: Result Comment: MACR OCYTOSIS PRESENT Performed By: #### O SMO, LD, MG, JESUS, TSHX, LIVP, B12FOL, LACTIC, FT4, BMP #### [facility] [address] [place] [address] [phone] [employer]: Tato Ibarra MD WBC (Bld) [#/Vol] 5.2 10*3/uL Normal 3.5-11.[address] [facility] Comment on above: Performed By: #### O SMO, LD, MG, JESUS, TSHX, LIVP, B12FOL, LACTIC, FT4, BMP #### [facility] [address] [place] [address] [phone] [employer] Operator: Tato Ibarra MD CREATININE, RANDOM URINEon 0 12-31-2023 Creatinine (U) [Mass/Vol] 27.0 mg/dL Low 28.0 - 217.0 mg/dL [facility] Interpretation and review of laboratory results Abnormal [facility] Calcium, Ionicon 12-31-2023 Calcium [Moles/Vol] 1.23 mmol/L Normal 1.13-1.[address] [facility] Comment on above: Performed By: #### O SMO, LD, MG, JESUS, TSHX, LIVP, B12FOL, LACTIC, FT4, BMP #### [facility] [address] [place] [address] [phone] [employer] Operator: Tato Ibarra MD Calcium, Ionizedon Calcium.ionized (Bld) [Moles/Vol] 1.23 mmol/L 1.13 - 1.33 mmol/L [facility] Cardiac echo study Procedure on 12-31-2023 Ao Root Index 1.69 cm/m2 [facility] Aortic Root 3.3 cm [facility] AR Max Velocity PISA 3.1 m/s [facility] PHT 894.0 ms [facility] Ascending Aorta 4.1 cm [facility] Ascending Aorta Index 2.10 cm/m2 [facility] VTI 1.4 cm2/m2 [facility] Body surface area Derived from formula 1.99 m2 [facility] [facility] E/E' Lateral 10.00 [facility] E/E' Ratio (Averaged) 14.00 [facility] E/E' Septal 18.00 [facility] Est. RA Pressure 3 mmHg [facility] Fractional Shortening 2D 31 % 28 - 44 % [facility] Interpretation and review of laboratory results Abnormal [facility] IVC Proxmal 1.8 cm [facility] IVSd 1.1 cm 0.6 - 0.9 cm [facility] [place] Area 2C 19.7 cm2 [facility] [place] Area 4C 17.3 cm2 [facility] [place] Diameter 4.8 cm [facility] [place] Major Gary 4.4 cm [facility] [place] Minor Gary 4.6 cm [facility] [place] Size Index 2.46 cm/m2 [facility] [place] Volume BP 62 mL 22 - 52 mL [facility] [place] Volume Index BP 32 ml/m2 16 - 34 ml/m2 [facility] [place] Volume Index MOD A2C 34 ml/m2 16 - 34 ml/m2 [facility] [place] Volume Index MOD A4C 28 ml/m2 16 - 34 ml/m2 [facility] [employer] [facility] [place] Volume MOD A2C 66 mL 22 - 52 mL [facility] [employer] [place] Volume MOD A4C 55 mL 22 - 52 mL [facility] [employer] [facility] [place]/AO Root Ratio 1.45 [facility] [employer] [facility] LV E' Lateral Velocity 9 cm/s [facility] LV E' Septal Velocity 5 cm/s [facility] [employer] [facility] LV EDV A2C 70 mL [facility] [employer] [facility] LV EDV A4C 123 mL [facility] [employer] [facility] LV EDV Index A2C 36 mL/m2 [facility] [employer] [facility] EDV Index A4C 63 mL/m2 [facility] [employer] [facility] LV Ejection Fraction A2C 47 % [facility] [employer] [facility] LV Ejection Fraction A4C 57 % [facility] [employer] [facility] LV ESV A2C 37 mL [facility] [employer] LV ESV A4C 53 mL [facility] [employer] LV ESV Index A2C 19 mL/m2 [facility] [employer] LV ESV Index A4C 27 mL/m2 [facility] [employer] [facility] LV Mass 2D 194.0 g Abnormal 67 - 162 g [facility] [employer] [place] Mass 2D Index 99.5 g/m2 43 - 95 g/m2 [facility] [employer] LV RWT Ratio 0.46 [facility] [facility] LVIDd 4.8 cm 3.9 - 5.3 cm [facility] [facility] LVIDd Index 2.46 cm/m2 [facility] [employer] LVIDs 3.3 cm [facility] [employer] LVIDs Index 1.69 cm/m2 [facility] [employer] LVOT Area 3.8 cm2 [facility] [employer] LVOT Diameter 2.2 cm [facility] [employer] [facility] LVOT Mean Gradient 2 mmHg [facility] [employer] [facility] LVOT Peak Gradient 4 mmHg [facility] [facility] LVOT Peak Velocity 1.1 m/s [facility] [employer] [facility] LVOT Stroke Volume Index 44.6 mL/m2 [facility] [employer] [facility] LVOT SV 87.0 ml [facility] [employer] LVOT VTI 22.9 cm [facility] [employer] LVOT:AV VTI Index 0.72 [facility] [employer] LVPWd 1.1 cm 0.6 - 0.9 cm [facility] [employer] [facility] MV A Velocity 0.42 m/s [facility] [employer] MV E Velocity 0.90 m/s [facility] MV E Wave Deceleration Time 64.0 ms [facility] MV E/A 2.14 [facility] RV Free Wall Peak S' 7 cm/s [facility] RVSP 26 mmHg [facility] TR Max Velocity 2.40 m/s [facility] RS [facility] TR Peak Gradient 23 mmHg [facility] URS [facility] Left Ventricle: Normal left ventricular systolic [...] Doppler was performed. No contrast was given. [facility] CV CPACS [facility] Radiology Study observation (narrative) [facility] Creatinine,Random Uron 12-30 Creatinine [Mass/Vol] 27.0 mg/dL Low 28.0-217.[address] [facility] Comment on above: Performed By: #### O SMO, LD, MG, JESUS, TSHX, LIVP, B12FOL, LACTIC, FT4, BMP #### [facility] [place] [phone] [employer] Operator: Tato Ibarra MD Gastrointestinal Panel, [facility] 12-31-2023 Campylobacter sp DNA GOMEZ+probe Nom (Unsp spec) NEGATIVE: No Campylobacter spp. (jejuni or coli) DNA Detected NEGATIVE: No Campylobacter spp. (jejuni or coli) DNA Detecte [facility] E. coli enterotoxigenic eltA+estB genes GOMEZ+probe Ql (Stl) NEGATIVE: No Enterotoxigenic E. coli (ETEC) Heat-labile and heat-stable (LT/ST) DNA Detected NEGATIVE: No Enterotoxigenic E. coli (ETEC) Heat-labile and [facility] P. shigelloides DNA GOMEZ+probe Ql (Stl) Negative NEGATIVE: No Plesionomas shigelloides DNA Detected [facility] Salmonella sp DNA GOMEZ+probe Ql (Unsp spec) Negative NEGATIVE: No Salmonella spp. DNA Detected [facility] Shiga toxin stx gene GOMEZ+probe Nom (Unsp spec) Negative NEGATIVE: No Shiga toxin-producing gene(s) Detected [facility] Shigella sp DNA GOMEZ+probe Ql (Unsp spec) Negative NEGATIVE: No Shigella spp. / EIEC DNA Detected [facility] Specimen Description .FECES [facility] V. cholerae+parahaemoly ticus rfbL+trkH+tnaA genes GOMEZ+probe Ql (Stl) NEGATIVE: No Vibrio (V. vulnificus, V, parahaemolyticus and V. cholerae) DNA Detected NEGATIVE: No Vibrio (V. vulnificus, V, parahaemolyticus and [facility] Y. enterocolitica recN gene GOMEZ+probe Ql (Stl) Negative NEGATIVE: No Yersinia enterocolitica DNA Detected [facility] Hemoglobin and Hematocriton 12-31-2023 Hematocrit (Bld) [Volume fraction] 34.6 % Low 36.3 - 47.1 % [facility] Hemoglobin (Bld) [Mass/Vol] 11.3 g/dL Low 11.9 - 15.1 g/dL [facility] Interpretation and review of laboratory results Abnormal [facility] Hematocrit (Bld) [Volume fraction] 33.1 % Low 36.3 - 47.1 % [facility] Hemoglobin (Bld) [Mass/Vol] 10.8 g/dL Low 11.9 - 15.1 g/dL [facility] Interpretation and review of laboratory results Abnormal [facility] Hematocrit (Bld) [Volume fraction] 33.1 % Low 36.3 - 47.1 % [facility] Hemoglobin (Bld) [Mass/Vol] 11.2 g/dL Low 11.9 - 15.1 g/dL [facility] Interpretation and review of laboratory results Abnormal [facility] Hematocrit (Bld) [Volume fraction] 34.0 % Low 36.3 - 47.1 % [facility] Hemoglobin (Bld) [Mass/Vol] 11.1 g/dL Low 11.9 - 15.1 g/dL [facility] Interpretation and review of laboratory results Abnormal [facility] Hepatic Function Panelon Albumin [Mass/Vol] 3.0 g/dL Low 3.5 - 5.2 g/dL [facility] Albumin/Globulin [Mass ratio] 1.0 {ratio} 1.0 - 2.5 [facility] ALP [Catalytic activity/Vol] 174 U/L High 35 - 104 U/L [facility] ALT [Catalytic activity/Vol] 13 U/L 10 - 35 U/L [facility] AST [Catalytic activity/Vol] 47 U/L High 10 - 35 U/L [facility] Bilirubin [Mass/Vol] 0.4 mg/dL 0.00 - 1.20 mg/ dL [facility] Bilirubin.direct [Mass/Vol] 0.2 mg/dL 0.0 - 0.2 mg/dL [facility] Bilirubin.indirect [Mass/Vol] 0.2 mg/dL 0.0 - 1.0 mg/dL [facility] Pharmacopeia Globulin (S) [Mass/Vol] 2.2 g/dL [facility] Protein [Mass/Vol] 5.2 g/dL Low 6.6 - 8.7 g/dL [facility] Hgb/Hcton 12-31-2023 Hematocrit (Bld) [Volume fraction] 34.6 % Low 36.3-47.[address] [facility] Comment on above: Performed By: #### O SMO, LD, MG, JESUS, TSHX, LIVP, B12FOL, LACTIC, FT4, BMP #### [employer] [address] [place], [place] [phone] [employer] Operator: Tato Ibarra MD Hemoglobin (Bld) [Mass/Vol] 11.3 g/dL Low 11.9-15.[address] [facility] Comment on above: Performed By: #### O SMO, LD, MG, JESUS, TSHX, LIVP, B12FOL, LACTIC, FT4, BMP #### [employer] [address] [place], [place] [phone] [employer] Operator: Tato Ibarra MD Hematocrit (Bld) [Volume fraction] 33.1 % Low 36.3-47.[address] [facility] Comment on above: Performed By: #### O SMO, LD, MG, JESUS, TSHX, LIVP, B12FOL, LACTIC, FT4, BMP #### [employer] [address] [place], [place] [phone] [employer] Operator: Tato Ibarra MD Hemoglobin (Bld) [Mass/Vol] 10.8 g/dL Low 11.9-15.[address] [facility] Comment on above: Performed By: #### O SMO, LD, MG, JESUS, TSHX, LIVP, B12FOL, LACTIC, FT4, BMP #### [employer] [address] [place] [address] [employer] Operator: Tato Ibarra MD Hematocrit (Bld) [Volume fraction] 33.1 % Low 36.3-47.[address] [facility] Comment on above: Performed By: #### P TT, PT #### [address] [address] [employer] Operator: Tato Ibarra MD Hemoglobin (Bld) [Mass/Vol] 11.2 g/dL Low 11.9-15.[address] [facility] Comment on above: Performed By: #### P TT, PT #### [facility] [employer] [address] [place] [address] [employer] Operator: Tato Ibarra MD Hematocrit (Bld) [Volume fraction] 34.0 % Low 36.3-47.[address] [facility] Comment on above: Performed By: #### P TT, PT #### [address] [address] [employer] Operator: Tato Ibarra MD Hemoglobin (Bld) [Mass/Vol] 11.1 g/dL Low 11.9-15.[address] [facility] Comment on above: Performed By: #### P TT, PT #### [address] [address] [employer] Operator: Tato Ibarra MD Iron Binding Cap.on 12-31-19 24 % Fe Saturation 11 % Low 20-[address] [facility] Comment on above: Performed By: #### O SMO, LD, MG, JESUS, TSHX, LIVP, B12FOL, LACTIC, FT4, BMP #### [facility] [address] [place] [address] [employer] Operator: Tato Ibarra MD Iron [Mass/Vol] 24 ug/dL Low 37-[address] [facility] Comment on above: Performed By: #### O SMO, LD, MG, JESUS, TSHX, LIVP, B12FOL, LACTIC, FT4, BMP #### [facility] [place], [place] [phone] [employer] Operator: Tato Iabrra MD Total Fe Binding Cap 213 ug/dL Low 250-[address] [facility] Comment on above: Performed By: #### O SMO, LD, MG, JESUS, TSHX, LIVP, B12FOL, LACTIC, FT4, BMP #### [facility] [address] [place], [place] [phone] [employer] Operator: Tato Ibarra MD Unbound Fe Bind Cap 189 ug/dL Normal 112-[address] [facility] Comment on above: Performed By: #### O SMO, LD, MG, JESUS, TSHX, LIVP, B12FOL, LACTIC, FT4, BMP #### [facility] [address] [place] [address] [phone] [employer] Operator: Tato Ibarra MD Iron and TIBCon 12-31-2023 Interpretation and review of laboratory results Abnormal [facility] Iron [Mass/Vol] 24 ug/dL Low 37 - 145 ug/dL [facility] Iron binding capacity [Mass/Vol] 213 ug/dL Low 250 - 450 ug/dL [facility] Iron saturation [Mass fraction] 11 % Low 20 - 55 % [facility] UIBC 189 ug/dL 112 - 347 ug/dL [facility] Lactate Dehydrogenaseon LDH [Catalytic activity/Vol] 168 U/L 135 - 214 U/L [facility] LDH [Catalytic activity/Vol] 168 U/L Normal 135-[address] [facility] Comment on above: Performed By: #### O SMO, LD, MG, JESUS, TSHX, LIVP, B12FOL, LACTIC, FT4, BMP #### [facility] [place], [place] [phone] [employer] Operator: Tato Ibarra MD Lactic Acidon 12-31-2023 Lactic Acid, Whole Blood 1.0 mmol/L 0.7 - 2.1 mmol/L [facility] Lactic Acid,Whole Bl 1.0 mmol/L Normal 0.7-2.[address] [facility] Comment on above: Performed By: #### O SMO, LD, MG, JESUS, TSHX, LIVP, B12FOL, LACTIC, FT4, BMP #### [address] [address] [employer] Operator: Tato Ibarra MD Liver Profileon 12-31-2023 Albumin [Mass/Vol] 3.0 g/dL Low 3.5-5.[address] [facility] Comment on above: Performed By: #### O SMO, LD, MG, JESUS, TSHX, LIVP, B12FOL, LACTIC, FT4, BMP #### [address] [address] [employer] Operator: Tato Ibarra MD Albumin/Glob Ratio 1.0 Normal 1.0-2.[address] [facility] Comment on above: Performed By: #### O SMO, LD, MG, JESUS, TSHX, LIVP, B12FOL, LACTIC, FT4, BMP #### [address] [address] [employer] Operator: Tato Ibarra MD Alkaline Phos 174 U/L High 35-[address] [facility] Comment on above: Performed By: #### O SMO, LD, MG, JESUS, TSHX, LIVP, B12FOL, LACTIC, FT4, BMP #### [facility] [address] [place] [phone] [employer] Operator: Tato Ibarra MD ALT [Catalytic activity/Vol] 13 U/L Normal 10-[address] [facility] Comment on above: Performed By: #### O SMO, LD, MG, JESUS, TSHX, LIVP, B12FOL, LACTIC, FT4, BMP #### [address] [address] [employer] Operator: Tato Ibarra MD AST [Catalytic activity/Vol] 47 U/L High 10-[address] [facility] Comment on above: Performed By: #### O SMO, LD, MG, JESUS, TSHX, LIVP, B12FOL, LACTIC, FT4, BMP #### [address] [address] [employer] Operator: Tato Ibarra MD Bilirubin [Mass/Vol] 0.4 mg/dL Normal 0.00-1.[address] [facility] Comment on above: Performed By: #### O SMO, LD, MG, JESUS, TSHX, LIVP, B12FOL, LACTIC, FT4, BMP #### [address] [address] [employer] Operator: Tato Ibarra MD Bilirubin, Indirect 0.2 mg/dL Normal 0.0-1.[address] [facility] Comment on above: Performed By: #### O SMO, LD, MG, JESUS, TSHX, LIVP, B12FOL, LACTIC, FT4, BMP #### [facility] [address] [place] [address] [employer] Operator: Tato Ibarra MD Bilirubin.indirect [Mass/Vol] 0.2 mg/dL Normal 0.0-0.[address] [facility] Comment on above: Performed By: #### O SMO, LD, MG, JESUS, TSHX, LIVP, B12FOL, LACTIC, FT4, BMP #### [facility] [address] [place] [phone] [employer] Operator: Tato Ibarra MD Globulin (S) [Mass/Vol] 2.2 g/dL Normal [facility] Comment on above: Performed By: #### O SMO, LD, MG, JESUS, TSHX, LIVP, B12FOL, LACTIC, FT4, BMP #### [facility] [address] [place] [address] [employer] Operator: Tato Ibarra MD Protein [Mass/Vol] 5.2 g/dL Low 6.6-8.[address] [facility] Comment on above: Performed By: #### O SMO, LD, MG, JESUS, TSHX, LIVP, B12FOL, LACTIC, FT4, BMP #### [facility] [address] [place] [phone] [employer] Operator: Tato Ibarra MD Magnesiumon 12-31-2023 Magnesium [Mass/Vol] 1.9 mg/dL 1.6 - 2.6 mg/dL [facility] Magnesium [Mass/Vol] 1.9 mg/dL Normal 1.6-2.[address] [facility] Comment on above: Performed By: #### O SMO, LD, MG, JESUS, TSHX, LIVP, B12FOL, LACTIC, FT4, BMP #### [address] [address] [employer] Operator: Taot Ibarra MD No Panel Informationon 12-30 [facility] Interpretation and review of laboratory results Abnormal [facility] Osmolalityon 12-31-2023 Osmolality [Osmolality] 278 mosm/kg [facility] Osmolality [Osmolality] 278 mosm/kg Normal 275-[address] [facility] Comment on above: Performed By: #### O SMO, LD, MG, JESUS, TSHX, LIVP, B12FOL, LACTIC, FT4, BMP #### [facility] [address] [place] [phone] [employer] Operator: Tato Ibarra MD PTon 12-31-2023 INR Coag (PPP) [Relative time] 0.9 {INR} Normal [facility] Comment on above: Result Comment: Therapeutic Range: Moderate Anticoagulant Intensity: INR = 2.0-3.0 High Anticoagulant Intensity: INR = 2.5-3.5 Performed By: #### O SMO, LD, MG, JESUS, TSHX, LIVP, B12FOL, LACTIC, FT4, BMP #### [facility] [address] [place] [phone] [employer] Operator: Tato Ibarra MD PT Coag (PPP) [Time] 11.9 s Normal 11.7-14.[address] [facility] Comment on above: Performed By: #### O SMO, LD, MG, JESUS, TSHX, LIVP, B12FOL, LACTIC, FT4, BMP #### [facility] [address] [place] [address] [phone] [employer] Operator: Tato Ibarra MD INR Coag (PPP) [Relative time] 0.9 {INR} Normal [facility] Comment on above: Result Comment: Therapeutic Range: Moderate Anticoagulant Intensity: INR = 2.0-3.0 High Anticoagulant Intensity: INR = 2.5-3.5 Performed By: #### O SMO, LD, MG, JESUS, TSHX, LIVP, B12FOL, LACTIC, FT4, BMP #### [facility] [address] [place] [address] [phone] [employer] Operator: Tato Ibarra MD PT Coag (PPP) [Time] 11.8 s Normal 11.7-14.[address] [facility] Comment on above: Performed By: #### O SMO, LD, MG, JESUS, TSHX, LIVP, B12FOL, LACTIC, FT4, BMP #### [facility] [address] [place] [address] [phone] [employer] Operator: Tato Ibarra MD Phosphoruson 12-31-2023 Phosphate [Mass/Vol] 3.7 mg/dL 2.5 - 4.5 mg/dL [facility] Phosphorus, Inorg.on Phosphorus, Inorg. 3.7 mg/dL Normal 2.5-4.[address] [facility] Comment on above: Performed By: #### O SMO, LD, MG, JESUS, TSHX, LIVP, B12FOL, LACTIC, FT4, BMP #### [facility] [address] [place] [address] [phone] [employer] Operator: Tato Ibarra MD Protime-INRon 12-31-2023 INR Coag (PPP) [Relative time] 0.9 {INR} [facility] Comment on above: Therapeutic Range: Moderate Anticoagulant Intensity: INR = 2.0-3.0 High Anticoagulant Intensity: INR = 2.5-3.5 PT Coag (PPP) [Time] 11.9 s [facility] INR Coag (PPP) [Relative time] 0.9 {INR} [facility] Comment on above: Therapeutic Range: Moderate Anticoagulant Intensity: INR = 2.0-3.0 High Anticoagulant Intensity: INR = 2.5-3.5 PT Coag (PPP) [Time] 11.8 s [facility] SODIUM, URINE, RANDOMon Sodium (U) [Moles/Vol] 121 mmol/L [facility] Comment on above: No normal range esta blished. Sodium, Random Uron 12-31-19 Sodium (U) [Moles/Vol] 121 mmol/L Normal [facility] Comment on above: Result Comment: No n ormal range established. Performed By: #### O SMO, LD, MG, JESUS, TSHX, LIVP, B12FOL, LACTIC, FT4, BMP #### [employer] [address] [place] [address] [phone] [employer] Operator: Tato Ibarra MD Stool PCR Batteryon 12-31-19 Campylobacter sp PCR NEGATIVE: No Campylobacter spp. (jejuni or coli) DNA Detected Normal CAMNEG [facility] Comment on above: Performed By: #### P TT, PT #### [employer] [address] [place] [address] [phone] [employer] Operator: Tato Ibarra MD E coli enterotox PCR NEGATIVE: No Enterotoxigenic E. coli (ETEC) Heat-labile and heat-stable (LT/ST) Normal EECNEG [facility] Comment on above: Result Comment: DNA Detected Performed By: #### P TT, PT #### [employer] [address] [place] [address] [place] [address] [employer] Operator: Tato Ibarra MD Plesiomonas sp PCR Negative Normal PLENEG [facility] Comment on above: Performed By: #### P TT, PT #### [facility] [address] [place] [phone] [employer] Operator: Tato bIarra MD Salmonella sp PCR Negative Normal SALNEG [facility] Comment on above: Performed By: #### P TT, PT #### [facility] [address] [place] [phone] [employer] Operator: Tato Ibarra MD Shigatoxin gene PCR Negative Normal STXNEG [facility] Comment on above: Performed By: #### P TT, PT #### [address] [address] [employer] Operator: Tato Ibarra MD Shigella sp PCR Negative Normal SHINEG [facility] Comment on above: Performed By: #### P TT, PT #### [address] [address] [employer] Operator: Tato Ibarra MD Vibrio sp PCR NEGATIVE: No Vibrio (V. vulnificus, V, parahaemolyticus and V. cholerae) DNA Normal VIBNEG [facility] Comment on above: Result Comment: Dete cted Performed By: #### P TT, PT #### [address] [address] [employer] Operator: Tato Ibarra MD Yersinia gene PCR Negative Normal YERNEG [facility] Comment on above: Performed By: #### P TT, PT #### [address] [address] [employer] Operator: Tato Ibarra MD T4, Freeon 12-31-2023 Free T4 [Mass/Vol] 0.8 ng/dL Low 0.92 - 1.68 ng/dL [facility] Interpretation and review of laboratory results Abnormal [facility] TSH w/reflex to FT4on 2023 Thyroid Stim. Horm. 6.81 uIU/mL High 0.27-4.[address] [facility] Comment on above: Performed By: #### O SMO, LD, MG, JESUS, TSHX, LIVP, B12FOL, LACTIC, FT4, BMP #### [address] [address] [employer] Operator: Tato Ibarra MD TSH with Reflexon 12-31-2023 TSH Qn 6.81 m[IU]/L High [facility] Thyroxine, Freeon 12-31-2023 Thyroxine, Free 0.8 ng/dL Low 0.92-1.[address] [facility] Comment on above: Performed By: #### P TT, PT #### [address] [phone] [employer] Operator: Tato Ibarra MD UA w/Reflex Cultureon 2023 Bilirubin, SemiQt,Ur Negative Normal NEG [facility] Comment on above: Performed By: #### O SMO, LD, MG, JESUS, TSHX, LIVP, B12FOL, LACTIC, FT4, BMP #### [facility] [address] [place] [id number] [employer] Operator: Tato Ibarra MD Blood, Urine Negative Normal NEG [facility] Comment on above: Performed By: #### O SMO, LD, MG, JESUS, TSHX, LIVP, B12FOL, LACTIC, FT4, BMP #### [facility] [address] [place] [phone] [employer] Operator: Tato Ibarra MD Clarity (U) Clear Normal CLEAR [facility] Comment on above: Performed By: #### O SMO, LD, MG, JESUS, TSHX, LIVP, B12FOL, LACTIC, FT4, BMP #### [facility] [address] [place] [phone] [employer] Operator: Tato Ibarra MD Color (U) Yellow Normal YEL [facility] Comment on above: Performed By: #### O SMO, LD, MG, JESUS, TSHX, LIVP, B12FOL, LACTIC, FT4, BMP #### [facility] [address] [place] [phone] [employer] Operator: Tato Ibarra MD Comment Microscopic exam not performed based on chemical results unless requested in Normal [facility] Comment on above: Result Comment: orig inal order. Performed By: #### O SMO, LD, MG, JESUS, TSHX, LIVP, B12FOL, LACTIC, FT4, BMP #### [facility] [address] [place] [phone] [employer] Operator: Tato Ibarra MD Glucose Ql (U) Negative Normal NEG [facility] Comment on above: Performed By: #### O SMO, LD, MG, JESUS, TSHX, LIVP, B12FOL, LACTIC, FT4, BMP #### [facility] [address] [place] [id number] Pul[employer] Mill Operator: Tato Ibarra MD Ketones Ql (U) Negative Normal NEG [facility] Comment on above: Performed By: #### O SMO, LD, MG, JESUS, TSHX, LIVP, B12FOL, LACTIC, FT4, BMP #### [facility] [address] [place] [id number] [employer] Operator: Tato Ibarra MD Leukocyte esterase Test strip Ql (U) Negative Normal NEG [facility] Comment on above: Performed By: #### O SMO, LD, MG, JESUS, TSHX, LIVP, B12FOL, LACTIC, FT4, BMP #### [facility] [address] [place] [id number] [employer] Operator: Tato Ibarra MD Nitrite,Ur Negative Normal NEG [facility] Comment on above: Performed By: #### O SMO, LD, MG, JESUS, TSHX, LIVP, B12FOL, LACTIC, FT4, BMP #### [address] [address] [employer] Operator: Tato Ibarra MD PH,Ur 5.5 Normal 5.0-8.[address] [facility] Comment on above: Performed By: #### O SMO, LD, MG, JESUS, TSHX, LIVP, B12FOL, LACTIC, FT4, BMP #### [address] [address] [employer] Operator: Tato Ibarra MD Protein Ql (U) Negative Normal NEG [facility] Comment on above: Performed By: #### O SMO, LD, MG, JESUS, TSHX, LIVP, B12FOL, LACTIC, FT4, BMP #### [address] [id number] [employer] Operator: Tato Ibarra MD Spec. Linch,Ur 1.007 Normal 1.005-1.030 [facility] Comment on above: Performed By: #### O SMO, LD, MG, JESUS, TSHX, LIVP, B12FOL, LACTIC, FT4, BMP #### [facility] [employer] [address] [place] [address] [id number] [employer] Operator: Tato Ibarra MD Urobilinogen,Ur Normal Normal 0.0-1.[address] [facility] Comment on above: Performed By: #### O SMO, LD, MG, JESUS, TSHX, LIVP, B12FOL, LACTIC, FT4, BMP #### [address] [address] [employer] Operator: Tato Ibarra MD Urinalysis with Reflex to Cu ltureon 12-31-2023 Bilirubin Ql (U) Negative NEGATIVE [facility] Clarity (U) Clear Clear [facility] Color (U) Yellow Yellow [facility] Comment Microscopic exam not performed based on chemical results unless requested in original order. [facility] Glucose Test strip (U) [Mass/Vol] Negative NEGATIVE mg/dL [facility] Hemoglobin Auto test strip Ql (U) Negative NEGATIVE [facility] Ketones (U) [Mass/Vol] Negative NEGATIVE mg/dL [facility] Leukocyte esterase Test strip Ql (U) Negative NEGATIVE [facility] Nitrite Ql (U) Negative NEGATIVE [facility] pH (U) 5.5 [pH] 5.0 - 8.0 [facility] Protein (U) [Mass/Vol] Negative NEGATIVE mg/dL [facility] Specific gravity (U) [Rel density] 1.007 1.005 - 1.030 [facility] Urobilinogen Qn (U) Normal 0.0 - 1.0 EU/dL [facility] Vitamin B12 & Folateon 12-30 Cobalamin (Vitamin B12) [Mass/Vol] 271 pg/mL 232 - 1245 pg/mL [facility] Folate [Mass/Vol] 5.4 ng/mL 4.8 - 24.2 ng/mL [facility] Basophils Auto (Bld) [#/Vol] on 12-30-2023 Basophils (Bld) [#/Vol] 0.0 10 3/uL 0.0-0.1 [facility] Basophils/100 WBC Auto (Bld) on 12-30-2023 Basophils/100 WBC (Bld) 0.7 % 0.2-2.0 [facility] Eosinophils/100 WBC Auto (Bl d)on 12-30-2023 Eosinophils/100 WBC (Bld) 2.7 % 0.9-7.0 [facility] Erythrocyte distribution wid th Auto (RBC) [Ratio]on 12-30-2023 Erythrocyte distribution width (RBC) [Ratio] 15.0 % 11.0-15.0 [facility] Estimated glomerular filtrat ion rate (GFR) non- Americanon 12-30-2023 GFR/1.73 sq M.predicted among non-blacks MDRD (S/P/Bld) [Vol rate/Area] mL/min/{1.73_m2} >=60 [facility] Globulin Calc (S) [Mass/Vol] on 12-30-2023 Globulin (S) [Mass/Vol] 2.6 g/dL [facility] Hematocrit Auto (Bld) [Volum e fraction]on 12-30-2023 Hematocrit (Bld) [Volume fraction] 35.2 % Low 36.0-48.0 [facility] Hemoglobin [Mass/volume] in Bloodon 12-30-2023 Hemoglobin (Bld) [Mass/Vol] 11.8 g/dL Low 12.0-16.0 [facility] Hemoglobin and Hematocriton 12-30-2023 Hematocrit (Bld) [Volume fraction] 34.2 % Low 36.3 - 47.1 % [facility] Hemoglobin (Bld) [Mass/Vol] 11.0 g/dL Low 11.9 - 15.1 g/dL [facility] Interpretation and review of laboratory results Abnormal [facility] Hgb/Hcton 12-30-2023 Hematocrit (Bld) [Volume fraction] 34.2 % Low 36.3-47.[address] [facility] Comment on above: Performed By: #### O SMO, LD, MG, JESUS, TSHX, LIVP, B12FOL, LACTIC, FT4, BMP #### [facility] [address] [place] [id number] [employer] Operator: Tato Ibarra MD Hemoglobin (Bld) [Mass/Vol] 11.0 g/dL Low 11.9-15.[address] [facility] Comment on above: Performed By: #### O SMO, LD, MG, JESUS, TSHX, LIVP, B12FOL, LACTIC, FT4, BMP #### [facility] [address] [place] [id number] [employer] Operator: Tato Ibarra MD Laboratory - Chemistry and C hemistry - challengeon 12-30-2023 Albumin [Mass/Vol] 1.9 g/dL Low 3.4-5.0 [facility] ALP [Catalytic activity/Vol] 149 U/L High 46-116 [facility] ALT [Catalytic activity/Vol] 18 U/L 14-59 [facility] AST [Catalytic activity/Vol] 34 U/L 15-37 [facility] Bilirubin [Mass/Vol] 0.3 mg/dL 0.2-1.0 [facility] Calcium [Mass/Vol] 8.3 mg/dL Low 8.5-10.1 [facility] Chloride [Moles/Vol] 107 mmol/L 98-107 [facility] CO2 [Moles/Vol] 25.6 mmol/L 21.0-32.0 [facility] Creatinine [Mass/Vol] 0.41 mg/dL Low 0.55-1.02 [facility] GFR/1.73 sq M.predicted MDRD (S/P/Bld) [Vol rate/Area] mL/min/{1.73_m2} >=60 [facility] Glucose [Mass/Vol] 85 mg/dL 74-106 [facility] Potassium [Moles/Vol] 3.2 mmol/L Low 3.5-5.1 [facility] Protein [Mass/Vol] 4.5 g/dL Low 6.4-8.2 [facility] Sodium [Moles/Vol] 141 mmol/L 136-145 [facility] Urea nitrogen [Mass/Vol] mg/dL Low 7.0-18.0 [facility] Urea nitrogen/Creatinine [Mass ratio] 2.4 mg/mg [facility] Laboratory - Hematology and Cell countson 12-30-2023 Immature granulocytes/100 WBC (Bld) 0.2 % 0.0-0.5 [facility] Leukocytes [#/volume] correc patty for nucleated erythrocytes in Blood by Automated counon 12-30-2023 WBC corrected for nucl RBC Auto (Bld) [#/Vol] 4.0 10 3/uL 4.0-11.0 [facility] Lymphocytes Auto (Bld) [#/Vo l]on 12-30-2023 Lymphocytes (Bld) [#/Vol] 1.3 10 3/uL 1.2-3.8 [facility] Lymphocytes/100 WBC Auto (Bl d)on 12-30-2023 Lymphocytes/100 WBC (Bld) 32.9 % 20.5-60.0 [facility] MCH Auto (RBC) [Entitic mass ]on 12-30-2023 MCH (RBC) [Entitic mass] 35.4 pg High 26.7-34.0 [facility] MCHC Auto (RBC) [Mass/Vol]on 12-30-2023 MCHC (RBC) [Mass/Vol] 33.2 g/dL 29.9-35.2 [facility] MCV Auto (RBC) [Entitic vol] on 12-30-2023 MCV (RBC) [Entitic vol] 106.7 fL High 81.0-99.0 [facility] Monocytes Auto (Bld) [#/Vol] on 12-30-2023 Monocytes (Bld) [#/Vol] 0.3 10 3/uL 0.3-0.8 [facility] Monocytes/100 WBC Auto (Bld) on 12-30-2023 Monocytes/100 WBC (Bld) 7.9 % 1.7-12.0 [facility] Neutrophils Auto (Bld) [#/Vo l]on 12-30-2023 Neutrophils (Bld) [#/Vol] 2.2 10 3/uL 1.4-6.5 [facility] Neutrophils/100 WBC Auto (Bl d)on 12-30-2023 Neutrophils/100 WBC (Bld) 55.6 % 43.0-75.0 [facility] No Panel Informationon 12-29 Eosinophils # (Auto) 0.1 10 3/uL 0.0-0.7 [facility] Immature Granulocyte # (Auto) 0.01 10 3/uL 0.00-0.03 [facility] Platelet mean volume Auto (B ld) [Entitic vol]on 12-30-2023 Platelet mean volume (Bld) [Entitic vol] 9.4 fL Low 9.5-13.5 [facility] Platelets Auto (Bld) [#/Vol] on 12-30-2023 Platelets (Bld) [#/Vol] 175 10 3/uL 150-450 [facility] RBC Auto (Bld) [#/Vol]on RBC (Bld) [#/Vol] 2.09 10 6/uL Low 4.20-5.40 [facility] Serum or plasma albumin/glob ulin mass ratioon 12-30-2023 Albumin/Globulin [Mass ratio] 0.7 {ratio} [facility] Serum or plasma anion gap de terminationon 12-30-2023 Anion gap [Moles/Vol] 11.6 mmol/L [facility] Basophils Auto (Bld) [#/Vol] on 12-29-2023 Basophils (Bld) [#/Vol] 0.0 10 3/uL 0.0-0.1 [facility] Basophils/100 WBC Auto (Bld) on 12-29-2023 Basophils/100 WBC (Bld) 0.8 % 0.2-2.0 [facility] Eosinophils/100 WBC Auto (Bl d)on 12-29-2023 Eosinophils/100 WBC (Bld) 1.4 % 0.9-7.0 [facility] Erythrocyte distribution wid th Auto (RBC) [Ratio]on 12-29-2023 Erythrocyte distribution width (RBC) [Ratio] 15.1 % High 11.0-15.0 [facility] Estimated glomerular filtrat ion rate (GFR) non- Americanon 12-29-2023 GFR/1.73 sq M.predicted among non-blacks MDRD (S/P/Bld) [Vol rate/Area] mL/min/{1.73_m2} >=60 [facility] Globulin Calc (S) [Mass/Vol] on 12-29-2023 Globulin (S) [Mass/Vol] 2.8 g/dL [facility] Hematocrit Auto (Bld) [Volum e fraction]on 12-29-2023 Hematocrit (Bld) [Volume fraction] 24.3 % Low 36.0-48.0 [facility] Hemoglobin [Mass/volume] in Bloodon 12-29-2023 Hemoglobin (Bld) [Mass/Vol] 8.1 g/dL Low 12.0-16.0 [facility] Laboratory - Chemistry and C hemistry - challengeon 12-29-2023 Albumin [Mass/Vol] 2.0 g/dL Low 3.4-5.0 [facility] ALP [Catalytic activity/Vol] 166 U/L High 46-116 [facility] ALT [Catalytic activity/Vol] 17 U/L 14-59 [facility] AST [Catalytic activity/Vol] 30 U/L 15-37 [facility] Bilirubin [Mass/Vol] 0.4 mg/dL 0.2-1.0 [facility] Calcium [Mass/Vol] 8.4 mg/dL Low 8.5-10.1 [facility] Chloride [Moles/Vol] 104 mmol/L 98-107 [facility] CO2 [Moles/Vol] 28.3 mmol/L 21.0-32.0 [facility] Creatinine [Mass/Vol] 0.52 mg/dL Low 0.55-1.02 [facility] GFR/1.73 sq M.predicted MDRD (S/P/Bld) [Vol rate/Area] mL/min/{1.73_m2} >=60 [facility] Glucose [Mass/Vol] 91 mg/dL 74-106 [facility] Potassium [Moles/Vol] 3.8 mmol/L 3.5-5.1 [facility] Protein [Mass/Vol] 4.8 g/dL Low 6.4-8.2 [facility] Sodium [Moles/Vol] 136 mmol/L 136-145 [facility] Urea nitrogen [Mass/Vol] 6.0 mg/dL Low 7.0-18.0 [facility] Urea nitrogen/Creatinine [Mass ratio] 11.5 mg/mg [facility] Laboratory - Hematology and Cell countson 12-29-2023 Immature granulocytes/100 WBC (Bld) 0.2 % 0.0-0.5 [facility] Leukocytes [#/volume] correc patty for nucleated erythrocytes in Blood by Automated counon 12-29-2023 WBC corrected for nucl RBC Auto (Bld) [#/Vol] 4.8 10 3/uL 4.0-11.0 [facility] Lymphocytes Auto (Bld) [#/Vo l]on 12-29-2023 Lymphocytes (Bld) [#/Vol] 1.7 10 3/uL 1.2-3.8 [facility] Lymphocytes/100 WBC Auto (Bl d)on 12-29-2023 Lymphocytes/100 WBC (Bld) 35.1 % 20.5-60.0 [facility] MCH Auto (RBC) [Entitic mass ]on 12-29-2023 MCH (RBC) [Entitic mass] 36.2 pg High 26.7-34.0 [facility] MCHC Auto (RBC) [Mass/Vol]on 12-29-2023 MCHC (RBC) [Mass/Vol] 33.5 g/dL 29.9-35.2 [facility] MCV Auto (RBC) [Entitic vol] on 12-29-2023 MCV (RBC) [Entitic vol] 108.2 fL High 81.0-99.0 [facility] Monocytes Auto (Bld) [#/Vol] on 12-29-2023 Monocytes (Bld) [#/Vol] 0.6 10 3/uL 0.3-0.8 [facility] Monocytes/100 WBC Auto (Bld) on 12-29-2023 Monocytes/100 WBC (Bld) 11.6 % 1.7-12.0 [facility] Neutrophils Auto (Bld) [#/Vo l]on 12-29-2023 Neutrophils (Bld) [#/Vol] 2.5 10 3/uL 1.4-6.5 [facility] Neutrophils/100 WBC Auto (Bl d)on 12-29-2023 Neutrophils/100 WBC (Bld) 50.9 % 43.0-75.0 [facility] No Panel Informationon 12-28 Eosinophils # (Auto) 0.1 10 3/uL 0.0-0.7 [facility] Immature Granulocyte # (Auto) 0.01 10 3/uL 0.00-0.03 [facility] Platelet mean volume Auto (B ld) [Entitic vol]on 12-29-2023 Platelet mean volume (Bld) [Entitic vol] 9.5 fL 9.5-13.5 [facility] Platelets Auto (Bld) [#/Vol] on 12-29-2023 Platelets (Bld) [#/Vol] 204 10 3/uL 150-450 [facility] RBC Auto (Bld) [#/Vol]on RBC (Bld) [#/Vol] 2.32 10 6/uL Low 4.20-5.40 [facility] Serum or plasma albumin/glob ulin mass ratioon 12-29-2023 Albumin/Globulin [Mass ratio] 0.7 {ratio} [facility] Serum or plasma anion gap de terminationon 12-29-2023 Anion gap [Moles/Vol] 7.5 mmol/L [facility] Basophils Auto (Bld) [#/Vol] on 12-28-2023 Basophils (Bld) [#/Vol] 0.0 10 3/uL 0.0-0.1 [facility] Basophils/100 WBC Auto (Bld) on 12-28-2023 Basophils/100 WBC (Bld) 0.3 % 0.2-2.0 [facility] Eosinophils/100 WBC Auto (Bl d)on 12-28-2023 Eosinophils/100 WBC (Bld) 0.2 % Low 0.9-7.0 [facility] Erythrocyte distribution wid th Auto (RBC) [Ratio]on 12-28-2023 Erythrocyte distribution width (RBC) [Ratio] 14.6 % 11.0-15.0 [facility] Estimated glomerular filtrat ion rate (GFR) non- Americanon 12-28-2023 GFR/1.73 sq M.predicted among non-blacks MDRD (S/P/Bld) [Vol rate/Area] mL/min/{1.73_m2} >=60 [facility] Globulin Calc (S) [Mass/Vol] on 12-28-2023 Globulin (S) [Mass/Vol] 3.4 g/dL [facility] Hematocrit Auto (Bld) [Volum e fraction]on 12-28-2023 Hematocrit (Bld) [Volume fraction] 27.1 % Low 36.0-48.0 [facility] Hemoglobin [Mass/volume] in Bloodon 12-28-2023 Hemoglobin (Bld) [Mass/Vol] 9.1 g/dL Low 12.0-16.0 [facility] Hemoglobin.gastrointestinal [Presence] in Stoolon 12-28-2023 Hemoglobin.gastroint estinal Ql (Stl) Positive Abnormal [facility] INR in Platelet poor plasma by Coagulation assayon 12-28-2023 INR Coag (PPP) [Relative time] {INR} [facility] Comment on above: DESIRED INR:2.0-3.0 CONDITIONS NOT LISTED BELOW2.5-3.5 FOR PROSTHETIC HEART VALVE REPLACEMENT2.5-3.5 RECURRENT THROMBOSIS Laboratory - Chemistry and C hemistry - challengeon 12-28-2023 Calcium [Mass/Vol] 8.4 mg/dL Low 8.5-10.1 [facility] Chloride [Moles/Vol] 101 mmol/L 98-107 [facility] CO2 [Moles/Vol] 25.4 mmol/L 21.0-32.0 [facility] Creatinine [Mass/Vol] 0.57 mg/dL 0.55-1.02 [facility] GFR/1.73 sq M.predicted MDRD (S/P/Bld) [Vol rate/Area] mL/min/{1.73_m2} >=60 [facility] Glucose [Mass/Vol] 102 mg/dL 74-106 [facility] Potassium [Moles/Vol] 3.7 mmol/L 3.5-5.1 [facility] Sodium [Moles/Vol] 133 mmol/L Low 136-145 [facility] Urea nitrogen [Mass/Vol] 8.0 mg/dL 7.0-18.0 [facility] Urea nitrogen/Creatinine [Mass ratio] 14.0 mg/mg [facility] Bilirubin Ql (U) Negative NEGATIVE [facility] Glucose (U) [Mass/Vol] Negative NEGATIVE [facility] Ketones Ql (U) Negative NEGATIVE [facility] pH (U) 6.0 [pH] 5.0-9.0 [facility] Sodium (U) [Moles/Vol] 13 mmol/L Low 30-90 [facility] Specific gravity (U) [Rel density] <=1.005 Abnormal 1.005-1.025 [facility] Urobilinogen Qn (U) 0.2 {[place]'U}/dL 0.2-1.0 [facility] Lactate [Moles/Vol] 2.1 mmol/L High 0.4-2.0 [facility] Comment on above: RESULTS CALLED TO VIRGILIO LEARY RN Albumin [Mass/Vol] 2.2 g/dL Low 3.4-5.0 [facility] ALP [Catalytic activity/Vol] 219 U/L High 46-116 [facility] ALT [Catalytic activity/Vol] 21 U/L 14-59 [facility] AST [Catalytic activity/Vol] 45 U/L High 15-37 [facility] Bilirubin [Mass/Vol] 0.5 mg/dL 0.2-1.0 [facility] Protein [Mass/Vol] 5.6 g/dL Low 6.4-8.2 [facility] Laboratory - Hematology and Cell countson 12-28-2023 Immature granulocytes/100 WBC (Bld) 0.3 % 0.0-0.5 [facility] - Specimen inform ationon 12-28-2023 Appearance (U) CLEAR CLEAR [facility] Color (U) LT. YELLOW YELLOW [facility] - Urinalysison Leukocyte esterase Test strip Ql (U) Negative NEGATIVE [facility] Nitrite Ql (U) Negative NEGATIVE [facility] Protein Ql (U) Negative NEG/TRACE [facility] Leukocytes [#/volume] correc patty for nucleated erythrocytes in Blood by Automated counon 12-28-2023 WBC corrected for nucl RBC Auto (Bld) [#/Vol] 10.1 10 3/uL 4.0-11.0 [facility] Lymphocytes Auto (Bld) [#/Vo l]on 12-28-2023 Lymphocytes (Bld) [#/Vol] 2.9 10 3/uL 1.2-3.8 [facility] Lymphocytes/100 WBC Auto (Bl d)on 12-28-2023 Lymphocytes/100 WBC (Bld) 28.7 % 20.5-60.0 [facility] MCH Auto (RBC) [Entitic mass ]on 12-28-2023 MCH (RBC) [Entitic mass] 35.6 pg High 26.7-34.0 [facility] MCHC Auto (RBC) [Mass/Vol]on 12-28-2023 MCHC (RBC) [Mass/Vol] 34.4 g/dL 29.9-35.2 [facility] MCV Auto (RBC) [Entitic vol] on 12-28-2023 MCV (RBC) [Entitic vol] 103.6 fL High 81.0-99.0 [facility] Monocytes Auto (Bld) [#/Vol] on 12-28-2023 Monocytes (Bld) [#/Vol] 0.7 10 3/uL 0.3-0.8 [facility] Monocytes/100 WBC Auto (Bld) on 12-28-2023 Monocytes/100 WBC (Bld) 6.8 % 1.7-12.0 [facility] Neutrophils Auto (Bld) [#/Vo l]on 12-28-2023 Neutrophils (Bld) [#/Vol] 6.4 10 3/uL 1.4-6.5 [facility] Neutrophils/100 WBC Auto (Bl d)on 12-28-2023 Neutrophils/100 WBC (Bld) 63.7 % 43.0-75.0 [facility] No Panel Informationon 12-27 Urine Microscopic Review NO [facility] Urine Occult Blood Negative NEGATIVE [facility] Urine Osmolality 161 mOsmol/kg . [facility] Comment on above: 24 hr : 300 - 900 Ra ndom: 50 - 1400 After 12hr fluid restriction: >850Performed at: [facility] - [facility] [address] [id number] Director: Ab Giordano MD, Phone: [phone] Urine Random Creatinine <13.00 mg/dL Low 20.00-300.00 [facility] Eosinophils # (Auto) 0.0 10 3/uL 0.0-0.7 [facility] Immature Granulocyte # (Auto) 0.03 10 3/uL 0.00-0.03 [facility] Troponin I High Sensitivity <4.0 pg/mL Low 4.0-51.3 [facility] Comment on above: CUT-OFF POINTS HAVE [...] Damaris Coffey on 12-28-2023 Blood Culture 2 [facility] Blood Culture 1 [facility] Platelet mean volume Auto (B ld) [Entitic vol]on 12-28-2023 Platelet mean volume (Bld) [Entitic vol] 9.8 fL 9.5-13.5 [facility] Platelets Auto (Bld) [#/Vol] on 12-28-2023 Platelets (Bld) [#/Vol] 315 10 3/uL 150-450 [facility] Prothrombin time (PT)on PT Coag (PPP) [Time] 9.6 s 9.0-11.6 [facility] RBC Auto (Bld) [#/Vol]on RBC (Bld) [#/Vol] 3.09 10 6/uL Low 4.20-5.40 [facility] Serum or plasma albumin/glob ulin mass ratioon 12-28-2023 Albumin/Globulin [Mass ratio] 0.6 {ratio} [facility] Serum or plasma anion gap de terminationon 12-28-2023 Anion gap [Moles/Vol] 10.3 mmol/L [facility] Basophils Auto (Bld) [#/Vol] on 11-10-2023 Basophils (Bld) [#/Vol] 0.0 10 3/uL 0.0-0.1 [facility] Basophils/100 WBC Auto (Bld) on 11-10-2023 Basophils/100 WBC (Bld) 0.5 % 0.2-2.0 [facility] Eosinophils/100 WBC Auto (Bl d)on 11-10-2023 Eosinophils/100 WBC (Bld) 0.1 % Low 0.9-7.0 [facility] Erythrocyte distribution wid th Auto (RBC) [Ratio]on 11-10-2023 Erythrocyte distribution width (RBC) [Ratio] 12.7 % 11.0-15.0 [facility] Estimated glomerular filtrat ion rate (GFR) non- Americanon 11-10-2023 GFR/1.73 sq M.predicted among non-blacks MDRD (S/P/Bld) [Vol rate/Area] 58 mL/min/{1.73_m2} Low >=60 [facility] Globulin Calc (S) [Mass/Vol] on 11-10-2023 Globulin (S) [Mass/Vol] 3.6 g/dL [facility] Hematocrit Auto (Bld) [Volum e fraction]on 11-10-2023 Hematocrit (Bld) [Volume fraction] 38.3 % 36.0-48.0 [facility] Hemoglobin [Mass/volume] in Bloodon 11-10-2023 Hemoglobin (Bld) [Mass/Vol] 13.2 g/dL 12.0-16.0 [facility] INR in Platelet poor plasma by Coagulation assayon 11-10-2023 INR Coag (PPP) [Relative time] {INR} [facility] Comment on above: DESIRED INR:2.0-3.0 CONDITIONS NOT LISTED BELOW2.5-3.5 FOR PROSTHETIC HEART VALVE REPLACEMENT2.5-3.5 RECURRENT THROMBOSIS Laboratory - Chemistry and C hemistry - challengeon 11-10-2023 Albumin [Mass/Vol] 3.0 g/dL Low 3.4-5.0 [facility] ALP [Catalytic activity/Vol] 232 U/L High 46-116 [facility] ALT [Catalytic activity/Vol] 23 U/L 14-59 [facility] AST [Catalytic activity/Vol] 82 U/L High 15-37 [facility] Bilirubin [Mass/Vol] 0.6 mg/dL 0.2-1.0 [facility] Calcium [Mass/Vol] 9.3 mg/dL 8.5-10.1 [facility] Chloride [Moles/Vol] 97 mmol/L Low 98-107 [facility] CO2 [Moles/Vol] 25.7 mmol/L 21.0-32.0 [facility] Creatinine [Mass/Vol] 0.99 mg/dL 0.55-1.02 [facility] GFR/1.73 sq M.predicted MDRD (S/P/Bld) [Vol rate/Area] mL/min/{1.73_m2} >=60 [facility] Glucose [Mass/Vol] 113 mg/dL High 74-106 [facility] Lipase [Catalytic activity/Vol] 16.0 U/L 16.0-77.0 [facility] Potassium [Moles/Vol] 3.0 mmol/L Low 3.5-5.1 [facility] Protein [Mass/Vol] 6.6 g/dL 6.4-8.2 [facility] Sodium [Moles/Vol] 133 mmol/L Low 136-145 [facility] Urea nitrogen [Mass/Vol] 4.0 mg/dL Low 7.0-18.0 [facility] Urea nitrogen/Creatinine [Mass ratio] 4.0 mg/mg [facility] Laboratory - Hematology and Cell countson 11-10-2023 Immature granulocytes/100 WBC (Bld) 0.4 % 0.0-0.5 [facility] Leukocytes [#/volume] correc patty for nucleated erythrocytes in Blood by Automated counon 11-10-2023 WBC corrected for nucl RBC Auto (Bld) [#/Vol] 7.3 10 3/uL 4.0-11.0 [facility] Lymphocytes Auto (Bld) [#/Vo l]on 11-10-2023 Lymphocytes (Bld) [#/Vol] 1.3 10 3/uL 1.2-3.8 [facility] Lymphocytes/100 WBC Auto (Bl d)on 11-10-2023 Lymphocytes/100 WBC (Bld) 17.4 % Low 20.5-60.0 [facility] MCH Auto (RBC) [Entitic mass ]on 11-10-2023 MCH (RBC) [Entitic mass] 38.2 pg High 26.7-34.0 [facility] MCHC Auto (RBC) [Mass/Vol]on 11-10-2023 MCHC (RBC) [Mass/Vol] 34.5 g/dL 29.9-35.2 [facility] MCV Auto (RBC) [Entitic vol] on 11-10-2023 MCV (RBC) [Entitic vol] 110.7 fL High 81.0-99.0 [facility] Monocytes Auto (Bld) [#/Vol] on 11-10-2023 Monocytes (Bld) [#/Vol] 0.5 10 3/uL 0.3-0.8 [facility] Monocytes/100 WBC Auto (Bld) on 11-10-2023 Monocytes/100 WBC (Bld) 6.7 % 1.7-12.0 [facility] Neutrophils Auto (Bld) [#/Vo l]on 11-10-2023 Neutrophils (Bld) [#/Vol] 5.5 10 3/uL 1.4-6.5 [facility] Neutrophils/100 WBC Auto (Bl d)on 11-10-2023 Neutrophils/100 WBC (Bld) 74.9 % 43.0-75.0 [facility] No Panel Informationon 11-09 Stool Occult Blood Negative [facility] Eosinophils # (Auto) 0.0 10 3/uL 0.0-0.7 [facility] Immature Granulocyte # (Auto) 0.03 10 3/uL 0.00-0.03 [facility] Troponin I High Sensitivity 11.2 pg/mL 4.0-51.3 [facility] Comment on above: CUT-OFF POINTS HAVE [...] volume (Bld) [Entitic vol] 9.8 fL 9.5-13.5 [facility] Platelets Auto (Bld) [#/Vol] on 11-10-2023 Platelets (Bld) [#/Vol] 305 10 3/uL 150-450 [facility] Prothrombin time (PT)on 10-24 PT Coag (PPP) [Time] 9.7 s 9.0-11.6 [facility] RBC Auto (Bld) [#/Vol]on RBC (Bld) [#/Vol] 3.46 10 6/uL Low 4.20-5.40 [facility] Serum or plasma albumin/glob ulin mass ratioon 11-10-2023 Albumin/Globulin [Mass ratio] 0.8 {ratio} [facility] Serum or plasma anion gap de terminationon 11-10-2023 Anion gap [Moles/Vol] 13.3 mmol/L [facility] Basophils Auto (Bld) [#/Vol] on 09-03-2023 Basophils (Bld) [#/Vol] 0.0 10 3/uL 0.0-0.1 [facility] Basophils/100 WBC Auto (Bld) on 09-03-2023 Basophils/100 WBC (Bld) 0.4 % 0.2-2.0 [facility] Eosinophils/100 WBC Auto (Bl d)on 09-03-2023 Eosinophils/100 WBC (Bld) 0.4 % 0.9-7.0 [facility] Erythrocyte distribution wid th Auto (RBC) [Ratio]on 09-03-2023 Erythrocyte distribution width (RBC) [Ratio] 16.8 % 11.0-15.0 [facility] Estimated glomerular filtrat ion rate (GFR) non- Americanon 09-03-2023 GFR/1.73 sq M.predicted among non-blacks MDRD (S/P/Bld) [Vol rate/Area] 29 mL/min/{1.73_m2} >=60 [facility] Hematocrit Auto (Bld) [Volum e fraction]on 09-03-2023 Hematocrit (Bld) [Volume fraction] 36.0 % 36.0-48.0 [facility] Hemoglobin [Mass/volume] in Bloodon 09-03-2023 Hemoglobin (Bld) [Mass/Vol] 12.3 g/dL 12.0-16.0 [facility] Laboratory - Chemistry and C hemistry - challengeon 09-03-2023 Calcium [Mass/Vol] 9.3 mg/dL 8.5-10.1 [facility] Chloride [Moles/Vol] 98 mmol/L 98-107 [facility] CO2 [Moles/Vol] 23.8 mmol/L 21.0-32.0 [facility] Creatinine [Mass/Vol] 1.80 mg/dL 0.55-1.02 [facility] GFR/1.73 sq M.predicted MDRD (S/P/Bld) [Vol rate/Area] 36 mL/min/{1.73_m2} >=60 [facility] Glucose [Mass/Vol] 103 mg/dL 74-106 [facility] Potassium [Moles/Vol] 3.2 mmol/L 3.5-5.1 [facility] Sodium [Moles/Vol] 137 mmol/L 136-145 [facility] Urea nitrogen [Mass/Vol] 2.0 mg/dL 7.0-18.0 [facility] Urea nitrogen/Creatinine [Mass ratio] 1.1 mg/mg [facility] - Hematology and Cell countson 09-03-2023 Immature granulocytes/100 WBC (Bld) 0.4 % 0.0-0.5 [facility] Leukocytes [#/volume] correc patty for nucleated erythrocytes in Blood by Automated counon 09-03-2023 WBC corrected for nucl RBC Auto (Bld) [#/Vol] 9.9 10 3/uL 4.0-11.0 [facility] Lymphocytes Auto (Bld) [#/Vo l]on 09-03-2023 Lymphocytes (Bld) [#/Vol] 1.7 10 3/uL 1.2-3.8 [facility] Lymphocytes/100 WBC Auto (Bl d)on 09-03-2023 Lymphocytes/100 WBC (Bld) 17.4 % 20.5-60.0 [facility] MCH Auto (RBC) [Entitic mass ]on 09-03-2023 MCH (RBC) [Entitic mass] 36.4 pg 26.7-34.0 [facility] MCHC Auto (RBC) [Mass/Vol]on 09-03-2023 MCHC (RBC) [Mass/Vol] 34.2 g/dL 29.9-35.2 [facility] MCV Auto (RBC) [Entitic vol] on 09-03-2023 MCV (RBC) [Entitic vol] 106.5 fL 81.0-99.0 [facility] Monocytes Auto (Bld) [#/Vol] on 09-03-2023 Monocytes (Bld) [#/Vol] 0.8 10 3/uL 0.3-0.8 [facility] Monocytes/100 WBC Auto (Bld) on 09-03-2023 Monocytes/100 WBC (Bld) 8.0 % 1.7-12.0 [facility] Neutrophils Auto (Bld) [#/Vo l]on 09-03-2023 Neutrophils (Bld) [#/Vol] 7.3 10 3/uL 1.4-6.5 [facility] Neutrophils/100 WBC Auto (Bl d)on 09-03-2023 Neutrophils/100 WBC (Bld) 73.4 % 43.0-75.0 [facility] No Panel Informationon 09-02 Eosinophils # (Auto) 0.0 10 3/uL 0.0-0.7 [facility] Immature Granulocyte # (Auto) 0.04 10 3/uL 0.00-0.03 [facility] Troponin I High Sensitivity 19.5 pg/mL 4.0-51.3 [facility] Comment on above: CUT-OFF POINTS HAVE [...] volume (Bld) [Entitic vol] 9.8 fL 9.5-13.5 [facility] Platelets Auto (Bld) [#/Vol] on 09-03-2023 Platelets (Bld) [#/Vol] 312 10 3/uL 150-450 [facility] RBC Auto (Bld) [#/Vol]on RBC (Bld) [#/Vol] 3.38 10 6/uL 4.20-5.40 [facility] Serum or plasma anion gap de terminationon 09-03-2023 Anion gap [Moles/Vol] 18.4 mmol/L [facility] CT ANGIO CORONARY ART WITH H [...] PM -------- ORIGINAL REPORT -------- Dictation workstation: [id number] Interpreted By: Ibrahima Merlos, STUDY: CT ANGIO CORONARY ART WITH HEARTFLOW IF SCORE >30%; 07/15/2023 12:36 pm INDICATION: Signs/Symptoms:chest pain,angina. COMPARISON: None. ACCESSION NUMBER(S): [id number] ORDERING CLINICIAN: YOSSI HUNTER TECHNIQUE: Using multi-detector [...] gender, and race in asymptomatic patients. [employer] Equipment Operator: Dr. Ibrahima Merlos, Date: 07/15/2023 4:40 pm Signed by: Ibrahima Merlos 07/15/2023 4:43 PM Dictation workstation: [id number] [facility] CTA Heart and Coronary arter [...] PM -------- ORIGINAL REPORT -------- Dictation workstation: [id number] [facility] Work Phone: 1. Mild diffuse coronary artery disease without significant stenosis. 2. Coronary artery calcium score 260, 99th percentile for age, gender, and race in asymptomatic patients. [employer] Equipment Operator: Dr. Ibrahima Merlos, Date: 07/15/2023 4:40 pm Signed by: Ibrahima Merlos 07/15/2023 4:43 PM Dictation workstation: [id number] Interpreted By: Ibrahima Merlos, STUDY: CT ANGIO CORONARY ART WITH HEARTFLOW IF SCORE >30%; 07/15/2023 12:36 pm INDICATION: Signs/Symptoms:chest pain,angina. COMPARISON: None. ACCESSION NUMBER(S): [id number] ORDERING CLINICIAN: YOSSI HUNTER TECHNIQUE: Using multi-detector [...] INDICATION: Signs/Symptoms:chest pain,angina. COMPARISON: None. ACCESSION NUMBER(S): [id number] ORDERING CLINICIAN: YOSSI HUNTER TECHNIQUE: Using multi-detector [...] gender, and race in asymptomatic patients. [employer] Equipment Operator: Dr. Ibrahima Merlos, Date: 07/15/2023 4:40 pm Signed by: Ibrahima Merlos 07/15/2023 4:43 PM Dictation workstation: [id number] [facility] Work Phone: Radiology Study observation (narrative) [facility] Work Phone: CTA Heart and Coronary arter ies WO and W contrast IVOrdered By: Miriam Zuleta on 07-15-2023 [facility] Work Phone: Creatinineon 07-15-2023 Creatinine [Mass/Vol] 0.7 mg/dL Normal 0.6-1.3 [facility] Comment on above: Result Comment: Hydr oxyurea can cause significant interference with creatinine measurement using the i-STAT device. An alternate method of creatinine measurement must be used in patients treated with hydroxyurea. Performed By: #### 2 160-0 #### MIGUEL BRADLEY ([id number]) [facility] ([facility]) [address] [place] [address] Creatinine [Mass/Vol]on 06-27 GFR/1.73 sq M.predicted MDRD (S/P/Bld) [Vol rate/Area] - [facility] Comment on above: Calculations of martin mated GFR are performed using the 2020 CKD-EPI Study Refit equation without the race variable for the IDMS-Traceable Creatinine Methods. https://jasn.asnjournals.org/content/early/ASN.8715597 988 Interpretation and review of laboratory results Normal [facility] GFR/1.73 sq M.predicted MDRD (S/P/Bld) [Vol rate/Area] mL/min/{1.73_m2} Normal >=60 [facility] Comment on above: Result Comment: Calc ulations of estimated GFR are performed using the 2020 CKD-EPI Study Refit ???equation without the race variable for the IDMS-Traceable Creatinine Methods. https://jasn.asnjournals.org/content/early/ASN.0936088 988 Performed By: #### 2 160-0 #### MIGUEL BRADLEY ([id number]) [facility] (EM) [address] [place] [id number] Laboratory - Chemistry and C hemistry - challengeon 07-15-2023 Creatinine [Mass/Vol] 0.7 mg/dL 0.6 - 1.3 mg/dL [facility] Comment on above: Hydroxyurea can caus e significant interference with creatinine measurement using the i-STAT device. An alternate method of creatinine measurement must be used in patients treated with hydroxyurea. TRANSTHORACIC ECHO (TTE) COM Maranda 06-13-2023 TRANSTHORACIC ECHO (TTE) COMPLETE [facility] [address], [address], [place] [address] TRANSTHORACIC ECHOCARDIOGRAM REPORT Patient Name: CANDY BOOTH Reading Physician: [id number] Ibrahima Serra DO Study Date: 06/13/2023 Ordering Provider: [id number] YOSSI HUNTER MRN/PID: [id number] Fellow: Nurse: Date of /Age: 5 1970 / 52 years Consumer Loan Officer: Ibrahima Valdes Gender: F Additional Staff: Height: 162.56 cm Admit Date: 06/13/2023 Weight: 86.18 kg Admission Status: Outpatient BSA: 1.91 m2 Department Location: [facility] Blood Pressure: 110 /60 mmHg Study Type: TRANSTHORACIC ECHO (TTE) COMPLETE Diagnosis/ICD: Shortness of breath-R06.02; Endocarditis, valve unspecified-I38 Indication: SOB, HV Disease, Dizziness, AO Dilation CPT Codes: Echo Complete w Full Doppler-54078 Patient History: Smoker: Current. Pertinent History: HTN [...] RA Area A4C: 12.5 cm2 RA Major Gary A4C: 4.3 cm AORTA MEASUREMENTS: Normal Ranges: Asc Ao, d: 4.10 cm (2.1-3.4cm) LV SYSTOLIC FUNCT (more content not included)... Normal [facility] US Heart TransthoracicOrdere d By: Ibrahima Serra on 06-13-2023 Aortic Valve Area by Continuity of Peak Velocity 3.48 cm2 [facility] Work Phone: [phone] Aortic Valve Area by Continuity of VTI 3.57 cm2 [facility] Work Phone: [phone] AV mn grad 3.0 mmHg [facility] Work Phone: [phone] AV pk grad 4.7 mmHg [facility] Work Phone: [phone] AV pk liya 1.08 m/s [facility] Work Phone: [phone] LV A4C EF 55.8 [facility] Work Phone: [phone] LV biplane EF 56 % [facility] Work Phone: [phone] LVIDd 4.20 cm [facility] Work Phone: [phone] LVOT diam 2.20 cm [facility] Work Phone: [phone] MV avg E/e' ratio 4.90 [facility] Work Phone: [phone] MV E/A ratio 0.62 [facility] Work Phone: RVSP 35.5 mmHg [facility] Work Phone: [facility] Work Phone: Heart [facility]an[facility]acicon [facility] [address], [address], [place], [place] [address] TRANSTHORACIC ECHOCARDIOGRAM REPORT Patient Name: CANDY BOOTH Reading Physician: [id number] Ibrahima Serra DO Study Date: 06/13/2023 Ordering Provider: [id number] YOSSI HUNTER MRN/PID: [id number] Fellow: Nurse: Date of /Age: 5 1970 / 52 years Consumer Loan Officer: Ibrahima Valdes Gender: F Additional Staff: Height: 162.56 cm Admit Date: 06/13/2023 Weight: 86.18 kg Admission Status: Outpatient BSA: 1.91 m2 [facility] Blood Pressure: 110 /60 mmHg Study Type: TRANSTHORACIC ECHO (TTE) COMPLETE Diagnosis/ICD: Shortness of breath-R06.02; Endocarditis, valve unspecified-I38 Indication: SOB, HV Disease, Dizziness, AO Dilation CPT Codes: Echo Complete w Full Doppler-[id number] Patient History: Smoker: Current. Pertinent History: HTN [...] 1.10 cm (0.6-1 (more content not included)... CORKY SeamanIbrahima vance - 06/13/2023 [facility] [address], [address], [place] [address] TRANSTHORACIC ECHOCARDIOGRAM REPORT Patient Name: CANDY BOOTH Reading Physician: [id number] Ibrahima Serra Study Date: 06/13/2023 Ordering Provider: [id number] YOSSI HUNTER MRN/PID: [id number] Fellow: Nurse: Date of /Age: 5 1970 / 52 years Consumer Loan Officer: Ibrahima Valdes Gender: F Additional Staff: Height: 162.56 cm Admit Date: 06/13/2023 Weight: 86.18 kg Admission Status: Outpatient BSA: 1.91 m2 Department Location: [facility] Blood Pressure: 110 /60 mmHg Study Type: TRANSTHORACIC ECHO (TTE) COMPLETE Diagnosis/ICD: Shortness of breath-R06.02; Endocarditis, valve unspecified-I38 Indication: SOB, HV Disease, Dizziness, AO Dilation CPT Codes: Echo Complete w Full Doppler-32624 Patient History: Smoker: Current. Pertinent History: HTN [...] cm2 RA Cornelius (more content not included)... [facility] Work Phone: PROF 14(COMP METB)on 022 Albumin [Mass/Vol] 4.2 g/dL Normal 3.4-5.0 [facility] Comment on above: Performed By: #### C MP #### [facility] [address] [place] [address] Dr. Leonides Anders Albumin/Globulin [Mass ratio] 1.3 {ratio} Normal [facility] Comment on above: Performed By: #### C MP #### [facility] [address] [place] [address] Dr. Leonides Anders ALP [Catalytic activity/Vol] 90 U/L Normal 46-116 [facility] Comment on above: Performed By: #### C MP #### [facility] [address] [place] [address] Dr. Leonides Anders ALT [Catalytic activity/Vol] 25 U/L Normal 14-59 [facility] Comment on above: Performed By: #### C MP #### [facility] [address] [place] [address] Dr. Leonides Anders Anion gap [Moles/Vol] 12.1 mmol/L Normal [facility] Comment on above: Performed By: #### C MP #### [facility] [address] [place] [address] [address] Leonides Anders AST [Catalytic activity/Vol] 20 U/L Normal 15-37 [facility] Comment on above: Performed By: #### C MP #### [facility] [address] [place] [address] [address] Leonides Anders Bilirubin [Mass/Vol] 0.3 mg/dL Normal 0.2-1.0 [facility] Comment on above: Performed By: #### C MP #### [facility] [address] [place] [address] [address] Leonides Anders Calcium [Mass/Vol] 9.4 mg/dL Normal 8.5-10.1 [facility] Comment on above: Performed By: #### C MP #### [facility] [address] [place] [address] Dr. Leonides Anders Chloride [Moles/Vol] 99 mmol/L Normal 98-107 [facility] Comment on above: Performed By: #### C MP #### [facility] [address] [place] [address] Dr. Leonides Anders CO2 [Moles/Vol] 26.2 mmol/L Normal 21.0-32.[address] [facility] Comment on above: Performed By: #### C MP #### [facility] [address] [place] [address] Dr. Leonides Anders Creatinine [Mass/Vol] 0.68 mg/dL Normal 0.55-1.02 [facility] Comment on above: Performed By: #### C MP #### [facility] [address] [place] [address] Dr. Leonides Anders EGFR-AF ARMENIAN >60 Normal >=[address] [facility] Comment on above: Performed By: #### C MP #### [facility] [address] [place] [address] Dr. Leonides Anders EGFR-NON AF ARMENIAN >60 Normal >=60 [facility] Comment on above: Performed By: #### C MP #### [facility] [address] [place] [address] Dr. Leonides Anders Globulin (S) [Mass/Vol] 3.3 g/dL Normal [facility] Comment on above: Performed By: #### C MP #### [facility] [address] [place] [address] [address] Leonides Anders Glucose [Mass/Vol] 97 mg/dL Normal 74-106 [facility] Comment on above: Performed By: #### C MP #### [facility] [address] [place] [address] [address] Leonides Anders Potassium [Moles/Vol] 4.3 mmol/L Normal 3.5-5.1 [facility] Comment on above: Performed By: #### C MP #### [facility] [address] [place] [address] [address] Leonides Anders Protein [Mass/Vol] 7.5 g/dL Normal 6.4-8.2 [facility] Comment on above: Performed By: #### C MP #### [facility] [address] [place] [address] [address] Leonides Anders Sodium [Moles/Vol] 133 mmol/L Critically low 136-145 [facility] Comment on above: Performed By: #### C MP #### [facility] [address] [place] [address] [address] Leonides Anders Urea nitrogen [Mass/Vol] 10.0 mg/dL Normal 7.0-18.0 [facility] Comment on above: Performed By: #### C MP #### [facility] [address] [place] [address] [address] Leoindes Anders Urea nitrogen/Creatinine [Mass ratio] 14.7 mg/mg Normal [facility] Comment on above: Performed By: #### C MP #### [facility] [address] [place] [address] [address] Leonides Anders CBC AUTO DIFFon 03-25-2022 BASO # 0.1 103/ul Normal 0.0-0.1 [facility] Comment on above: Performed By: #### C BC #### [facility] [address] [place] [address] [address] Leonides Anders Basophils/100 WBC (Bld) 0.5 % Normal 0.2-2.0 [facility] Comment on above: Performed By: #### C BC #### [facility] [address] [place] [address] Dr. Leonides Anders EO # 0.1 103/ul Normal 0.0-0.7 [facility] Comment on above: Performed By: #### C BC #### [facility] [address] [place] [address] Dr. Leonides Anders Eosinophils/100 WBC (Bld) 1.1 % Normal 0.9-7.0 [facility] Comment on above: Performed By: #### C BC #### [facility] [address] [place] [address] Dr. Leonides Anders Erythrocyte distribution width (RBC) [Ratio] 12.9 % Normal 11.0-15.0 [facility] Comment on above: Performed By: #### C BC #### [facility] [address] [place] [address] Dr. Leonides Anders Hematocrit (Bld) [Volume fraction] 38.8 % Normal 36.0-48.0 [facility] Comment on above: Performed By: #### C BC #### [facility] [address] [place] [address] Dr. Leonides Anders Hemoglobin (Bld) [Mass/Vol] 13.8 g/dL Normal 12.0-16.0 [facility] Comment on above: Performed By: #### C BC #### [facility] [address] [place] [address] Dr. Leonides Anders IG # 0.03 10e3/ul Normal 0.00-0.03 [facility] Comment on above: Performed By: #### C BC #### [facility] [address] [place] [address] Dr. Leonides Anders IG % 0.3 % Normal 0.0-0.5 [facility] Comment on above: Performed By: #### C BC #### [facility] [address] [place] [address] Dr. Leonides Anders LYMPH # 2.5 103/ul Normal 1.2-3.8 [facility] Comment on above: Performed By: #### C BC #### [facility] [address] [place] [address] Dr. Leonides Anders Lymphocytes/100 WBC (Bld) 26.5 % Normal 20.5-60.0 [facility] Comment on above: Performed By: #### C BC #### [facility] [address] [place] [address] Dr. Leonides Anders MANUAL DIFF REQ NO Normal [facility] Comment on above: Performed By: #### C BC #### [facility] [address] [place] [address] Dr. Leonides Anders MCH (RBC) [Entitic mass] 32.0 pg Normal 26.7-34.0 [facility] Comment on above: Performed By: #### C BC #### [facility] [address] [place] [address] Dr. Leonides Anders MCHC (RBC) [Mass/Vol] 35.6 g/dL Critically high 29.9-35.2 [facility] Comment on above: Performed By: #### C BC #### [facility] [address] [place] [address] Dr. Leonides Anders MCV (RBC) [Entitic vol] 90.0 fL Normal 81.0-99.0 [facility] Comment on above: Performed By: #### C BC #### [facility] [address] [place] [address] Dr. Leonides Anders MONO # 0.9 103/ul Critically high 0.3-0.8 [facility] Comment on above: Performed By: #### C BC #### [facility] [address] [place] [address] Dr. Leonides Anders Monocytes/100 WBC (Bld) 9.8 % Normal 1.7-12.0 [facility] Comment on above: Performed By: #### C BC #### [facility] [address] [place] [address] Dr. Leonides Anders NEUT # 5.8 103/ul Normal 1.4-6.5 [facility] Comment on above: Performed By: #### C BC #### [facility] [address] [place] [address] Dr. Leonides Anders Neutrophils/100 WBC (Bld) 61.8 % Normal 43.0-75.0 [facility] Comment on above: Performed By: #### C BC #### [facility] [address] [place] [address] Dr. Leonides Anders Platelet mean volume (Bld) [Entitic vol] 9.5 fL Normal 9.5-13.5 [facility] Comment on above: Performed By: #### C BC #### [facility] [address] [place] [address] Dr. Leonides Anders PLT 255 103/ul Normal 150-450 [facility] Comment on above: Performed By: #### C BC #### [facility] [address] [place] [address] Dr. Leonides Anders RBC 4.31 106/ul Normal 4.20-5.40 [facility] Comment on above: Performed By: #### C BC #### [facility] [address] [place] [address] Dr. Leonides Anders WBC 9.4 103/ul Normal 4.0-11.0 [facility] Comment on above: Performed By: #### C BC #### [facility] [address] [place] [address] Dr. Leonides Anders PROF CHEM 8 (BAS METB)on Anion gap [Moles/Vol] 15.7 mmol/L Normal [facility] Comment on above: Performed By: #### B MP #### [facility] [address] [place] [address] Dr. Leonides Anders Calcium [Mass/Vol] 9.1 mg/dL Normal 8.5-10.1 [facility] Comment on above: Performed By: #### B MP #### [facility] [address] [place] [address] Dr. Leonides Anders Chloride [Moles/Vol] 91 mmol/L Critically low 98-107 [facility] Comment on above: Performed By: #### B MP #### [facility] [address] [place] [address] [address] Leonides Anders CO2 [Moles/Vol] 22.8 mmol/L Normal 21.0-32.0 [facility] Comment on above: Performed By: #### B MP #### [facility] [address] [place] [address] [address] Leonides Anders Creatinine [Mass/Vol] 0.57 mg/dL Normal 0.55-1.02 [facility] Comment on above: Performed By: #### B MP #### [facility] [address] [place] [address] [address] Leonides Anders EGFR-AF ARMENIAN >60 Normal >=60 [facility] Comment on above: Performed By: #### B MP #### [facility] [address] [place] [address] Dr. Leonides Anders EGFR-NON AF ARMENIAN >60 Normal >=60 [facility] Comment on above: Performed By: #### B MP #### [facility] [address] [place] [address] [address] Leonides Anders Glucose [Mass/Vol] 119 mg/dL Critically high 74-106 [facility] Comment on above: Performed By: #### B MP #### [facility] [address] [place] [address] Dr. Leonides Anders Potassium [Moles/Vol] 3.5 mmol/L Normal 3.5-5.1 [facility] Comment on above: Performed By: #### B MP #### [facility] [address] [place] [address] [address] Leonides Anders Sodium [Moles/Vol] 126 mmol/L Critically low 136-145 [facility] Comment on above: Performed By: #### B MP #### [facility] [address] [place] [address] [address] Leonides Anders Urea nitrogen [Mass/Vol] 4.0 mg/dL Critically low 7.0-18.0 [facility] Comment on above: Performed By: #### B MP #### [facility] [address] [place] [address] [address] Leonides Anders Urea nitrogen/Creatinine [Mass ratio] 7.0 mg/mg Normal [facility] Comment on above: Performed By: #### B MP #### [facility] [address] [place] [address] [address] Leonides Anders VITAMIN B12on 03-25-2022 Cobalamin (Vitamin B12) [Mass/Vol] 192.0 pg/mL Critically low 193.0-986.0 [facility] Comment on above: Performed By: #### V [id number] #### [facility] [address] [place] [address] [address] Leonides Anders VIT D 1 25 DIHYDROXYon 12-06 Calcitriol(1,25 di-OH Vit D) 57.4 pg/mL Normal 24.8-81.5 [facility] Comment on above: Result Comment: Pl ease note reference interval change Performed By: #### V [id number] ####[facility] [address] [place], [place] [address]DrAna Andres CBC AUTO DIFFon 12-04-2021 BASO # 0.1 103/ul Normal 0.0-0.1 [facility] Comment on above: Performed By: #### C BC ####[facility] [address] [place] [address]Dr. Leonides Anders Basophils/100 WBC (Bld) 0.5 % Normal 0.2-2.0 [facility] Comment on above: Performed By: #### C BC ####[facility] [address] [place] [address]DrAna Anders EO # 0.2 103/ul Normal 0.0-0.7 [facility] Comment on above: Performed By: #### C BC ####[facility] [address] [place] [address]DrAna Anders Eosinophils/100 WBC (Bld) 2.3 % Normal 0.9-7.0 [facility] Comment on above: Performed By: #### C BC ####[facility] [address] [place], [place] [address]DrAna Anders Erythrocyte distribution width (RBC) [Ratio] 13.6 % Normal 11.0-15.0 [facility] Comment on above: Performed By: #### C BC ####[facility] [address] [place] [address]Dr. Leonides Anders Hematocrit (Bld) [Volume fraction] 42.1 % Normal 36.0-48.0 [facility] Comment on above: Performed By: #### C BC ####[facility] [address] [place], [place] [address]Dr. Leonides Anders Hemoglobin (Bld) [Mass/Vol] 14.4 g/dL Normal 12.0-16.0 [facility] Comment on above: Performed By: #### C BC ####[facility] Ntcmlauodv[address] [place], [place] [address]Dr. Leonides Anders IG # 0.02 10e3/ul Normal 0.00-0.03 [facility] Comment on above: Performed By: #### C BC ####[facility] Kwqpr[address] [place], [place] [address]Dr. Leonides Anders IG % 0.2 % Normal 0.0-0.5 [facility] Comment on above: Performed By: #### C BC ####[facility] Yurepmyrai[address] [place], [place] [address]Dr. Leonides Anders LYMPH # 3.6 103/ul Normal 1.2-3.8 [facility] Comment on above: Performed By: #### C BC ####[facility] Viwooetfuo[address] [place], [place] [address]Dr. Leonides Anders Lymphocytes/100 WBC (Bld) 38.3 % Normal 20.5-60.0 [facility] Comment on above: Performed By: #### C BC ####[facility] Tphjaqclzd[address] [place], [place] [address]Dr. Leonides Chago MANUAL DIFF REQ NO Normal [facility] Comment on above: Performed By: #### C BC ####[facility] Qttoajeodu[address] [place], [place] [address]Dr. Leonides Chago MCH (RBC) [Entitic mass] 31.0 pg Normal 26.7-34.0 [facility] Comment on above: Performed By: #### C BC ####[facility] [address] [address]Dr. Leonides Anders MCHC (RBC) [Mass/Vol] 34.2 g/dL Normal 29.9-35.2 [facility] Comment on above: Performed By: #### C BC ####[facility] Mcfeiollof[address] [place], [place] [address]Dr. Leonides Anders MCV (RBC) [Entitic vol] 90.5 fL Normal 81.0-99.0 [facility] Comment on above: Performed By: #### C BC ####[facility] Dhbaezwxpr[address] [place], [place] [address]Dr. Leonides Chago MONO # 0.8 103/ul Normal 0.3-0.8 [facility] Comment on above: Performed By: #### C BC ####[facility] Pluwbzsitk[address] [place], [place] [address]Dr. Kanikatorey Anders Monocytes/100 WBC (Bld) 8.7 % Normal 1.7-12.0 [facility] Comment on above: Performed By: #### C BC ####[facility] Nfqtibmitx[address] [place], [place] [address]Dr. Leonides Anders NEUT # 4.7 103/ul Normal 1.4-6.5 [facility] Comment on above: Performed By: #### C BC ####[facility] O[address] [place], [place] [address]Dr. Kanikatorey Anders Neutrophils/100 WBC (Bld) 50.0 % Normal 43.0-75.0 [facility] Comment on above: Performed By: #### C BC ####[facility] Onnaehdbev[address] [place], [place] [address]DrAna Leonides Chago Platelet mean volume (Bld) [Entitic vol] 9.3 fL Critically low 9.5-13.5 [facility] Comment on above: Performed By: #### C BC ####[facility] Epade[address] [place], [place] [id number]. Kanikatorey Anders PLT 263 103/ul Normal 150-450 [facility] Comment on above: Performed By: #### C BC ####[facility] [address] [place], [place] [address]Xh. Leonides Anders RBC 4.65 106/ul Normal 4.20-5.40 [facility] Comment on above: Performed By: #### C BC ####[facility] [address] [place], [place] [address]Op. Leonides Anders WBC 9.5 103/ul Normal 4.0-11.0 [facility] Comment on above: Performed By: #### C BC ####[facility] [address] [id number]. Leonides Anders FERRITINon 12-04-2021 Ferritin [Mass/Vol] 69.0 ng/mL Normal 8.0-252.0 The [facility] Comment on above: Performed By: #### F ERR, VITB12 #### [facility] Laboratory [address] [address] [address] Leonides Anders LIPID PROFILEon 12-04-2021 CHOL-HDL RATIO NORM SEE BELOW Normal [facility] Comment on above: Result Comment: 3.3 - 4.4 LOW RISK 4.4 - 7.1 AVERAGE RISK 7.1 - 11.0 MODERATE RISK >11.0 HIGH RISK Performed By: #### C MP, LIPID #### [facility] Laboratory [address] [address] [address] Leonides Anders Cholesterol [Mass/Vol] 234 mg/dL Critically high <=200 [facility] Comment on above: Performed By: #### C MP, LIPID #### [facility] Laboratory [address] [address] [address] Leonides Anders Cholesterol in HDL [Mass/Vol] 48 mg/dL Normal 40-60 [facility] Comment on above: Performed By: #### C MP, LIPID #### [facility] Laboratory [address] [address] [address] Leonides Anders Cholesterol in LDL [Mass/Vol] 150.8 mg/dL Normal [facility] Comment on above: Performed By: #### C MP, LIPID #### [facility] Laboratory [address] [address] [address] Leonides Anders Cholesterol.total/Ch olesterol in HDL [Mass ratio] 4.9 {ratio} Normal [facility] Comment on above: Performed By: #### C MP, LIPID #### [facility] Laboratory [address] [address] [address] Leonides Anders HDL NORMAL > or = 60 mg/dl - LOW CARDIOVASCULAR RISK <40 mg/dl - HIGH CARDIOVASCULAR RISK Normal [facility] Comment on above: Performed By: #### C MP, LIPID #### [facility] Laboratory [address] [address] [address] Leonides Anders LDL CALC NORMAL SEE BELOW Normal [facility] Comment on above: Result Comment: <100 mg/dl OPTIMAL 100 - 129 mg/dl NEAR OR ABOVE OPTIMAL 130 - 159 mg/dl BORDERLINE HIGH 160 - 189 mg/dl HIGH >190 mg/dl VERY HIGH Performed By: #### C MP, LIPID #### [facility] Laboratory [address] [place] [address] Dr. Leonides Anders Triglyceride [Mass/Vol] 176 mg/dL Critically high <=150 [facility] Comment on above: Performed By: #### C MP, LIPID #### [facility] Laboratory [address] [place] [address] Dr. Leonides Anders VLDL CALC 35.2 mg/dL Normal [facility] Comment on above: Performed By: #### C MP, LIPID #### [facility] Laboratory [address] [address] [address] Leonides Anders PROF 14(COMP METB)on 022 Albumin [Mass/Vol] 4.3 g/dL Normal 3.4-5.0 [facility] Comment on above: Performed By: #### C MP, LIPID #### [facility] Laboratory [address] [place] [address] Dr. Leonides Anders Albumin/Globulin [Mass ratio] 1.3 {ratio} Normal [facility] Comment on above: Performed By: #### C MP, LIPID #### [facility] Laboratory [address] [address] [address] Leonides Anders ALP [Catalytic activity/Vol] 96 U/L Normal 46-116 [facility] Comment on above: Performed By: #### C MP, LIPID #### [facility] Laboratory [address] [address] [address] Leonides Anders ALT [Catalytic activity/Vol] 27 U/L Normal 14-59 [facility] Comment on above: Performed By: #### C MP, LIPID #### [facility] Laboratory [address] [address] [address] Leonides Anders Anion gap [Moles/Vol] 12.5 mmol/L Normal [facility] Comment on above: Performed By: #### C MP, LIPID #### [facility] Laboratory [address] [place] [address] Dr. Leonides Anders AST [Catalytic activity/Vol] 16 U/L Normal 15-37 [facility] Comment on above: Performed By: #### C MP, LIPID #### [facility] Laboratory [address] [place] [address] Dr. Leonides Anders Bilirubin [Mass/Vol] 0.3 mg/dL Normal 0.2-1.0 [facility] Comment on above: Performed By: #### C MP, LIPID #### [facility] Laboratory [address] [place] [address] Dr. Leonides Anders Calcium [Mass/Vol] 9.5 mg/dL Normal 8.5-10.1 [facility] Comment on above: Performed By: #### C MP, LIPID #### [facility] Laboratory [address] [place] [address] Dr. Leonides Anders Chloride [Moles/Vol] 98 mmol/L Normal 98-107 [facility] Comment on above: Performed By: #### C MP, LIPID #### [facility] Laboratory [address] [address] [address] Leonides Anders CO2 [Moles/Vol] 27.5 mmol/L Normal 21.0-32.0 [facility] Comment on above: Performed By: #### C MP, LIPID #### [facility] Laboratory [address] [place] [address] Dr. Leonides Anders Creatinine [Mass/Vol] 0.82 mg/dL Normal 0.55-1.02 [facility] Comment on above: Performed By: #### C MP, LIPID #### [facility] Laboratory [address] [place] [address] Dr. Leonides Anders EGFR-AF ARMENIAN >60 Normal >=60 [facility] Comment on above: Performed By: #### C MP, LIPID #### [facility] Laboratory [address] [place] [address] Dr. Leonides Anders EGFR-NON AF ARMENIAN >60 Normal >=60 [facility] Comment on above: Performed By: #### C MP, LIPID #### [facility] Laboratory [address] [place] [address] Dr. Leonides Anders Globulin (S) [Mass/Vol] 3.4 g/dL Normal [facility] Comment on above: Performed By: #### C MP, LIPID #### [facility] Laboratory [address] [place] [address] Dr. Leonides Anders Glucose [Mass/Vol] 98 mg/dL Normal 74-106 [facility] Comment on above: Performed By: #### C MP, LIPID #### [facility] Laboratory [address] [place] [address] Dr. Leonides Anders Potassium [Moles/Vol] 4.0 mmol/L Normal 3.5-5.1 [facility] Comment on above: Performed By: #### C MP, LIPID #### [facility] Laboratory [address] [place] [address] Dr. Leonides Anders Protein [Mass/Vol] 7.7 g/dL Normal 6.4-8.2 [facility] Comment on above: Performed By: #### C MP, LIPID #### [facility] Laboratory [address] [place] [address] Dr. Leonides Anders Sodium [Moles/Vol] 134 mmol/L Critically low 136-145 [facility] Comment on above: Performed By: #### C MP, LIPID #### [facility] Laboratory [address] [place] [address] Dr. Leonides Anders Urea nitrogen [Mass/Vol] 9.0 mg/dL Normal 7.0-18.0 [facility] Comment on above: Performed By: #### C MP, LIPID #### [facility] Laboratory [address] [place] [address] Dr. Leonides Anders Urea nitrogen/Creatinine [Mass ratio] 11.0 mg/mg Normal [facility] Comment on above: Performed By: #### C MP, LIPID #### [facility] Laboratory [address] [address] [address] Leonides Anders US SINGLE QUAD RT [...] TUYET JONES Date: 2021-12-04 19:11 Normal [facility] VITAMIN B12on 12-04-2021 Cobalamin (Vitamin B12) [Mass/Vol] 232.0 pg/mL Normal 193.0-986.0 [facility] Comment on above: Performed By: #### F ERR, VITB12 #### [facility] Laboratory [address] [place] [address] Dr. Leonides Anders CBC AUTO DIFFon 11-03-2021 BASO # 0.0 103/ul Normal 0.0-0.1 [facility] Comment on above: Performed By: #### C BC #### [facility] Laboratory [address] [address] [address] Leonides Anders Basophils/100 WBC (Bld) 0.6 % Normal 0.2-2.0 [facility] Comment on above: Performed By: #### C BC #### [facility] Laboratory [address] [place] [address] Dr. Leonides Anders EO # 0.1 103/ul Normal 0.0-0.7 [facility] Comment on above: Performed By: #### C BC #### [facility] Laboratory [address] [place] [address] Dr. Leonides Anders Eosinophils/100 WBC (Bld) 0.9 % Normal 0.9-7.0 [facility] Comment on above: Performed By: #### C BC #### [facility] Laboratory [address] [place] [address] Dr. Leonides Anders Erythrocyte distribution width (RBC) [Ratio] 14.1 % Normal 11.0-15.0 [facility] Comment on above: Performed By: #### C BC #### [facility] Laboratory [address] [place] [address] Dr. Leonides Anders Hematocrit (Bld) [Volume fraction] 44.9 % Normal 36.0-48.0 [facility] Comment on above: Performed By: #### C BC #### [facility] Laboratory [address] [place] [address] Dr. Leonides Anders Hemoglobin (Bld) [Mass/Vol] 15.4 g/dL Normal 12.0-16.0 [facility] Comment on above: Performed By: #### C BC #### [facility] Laboratory [address] [place] [address] Dr. Leonides Anders IG # 0.02 10e3/ul Normal 0.00-0.03 [facility] Comment on above: Performed By: #### C BC #### [facility] Laboratory [address] [place] [address] Dr. Leonides Anders IG % 0.3 % Normal 0.0-0.5 [facility] Comment on above: Performed By: #### C BC #### [facility] Laboratory [address] [place] [address] Dr. Leonides Anders LYMPH # 1.4 103/ul Normal 1.2-3.8 [facility] Comment on above: Performed By: #### C BC #### [facility] Laboratory [address] [place] [address] Dr. Leonides Anders Lymphocytes/100 WBC (Bld) 20.3 % Critically low 20.5-60.0 [facility] Comment on above: Performed By: #### C BC #### [facility] Laboratory [address] [place] [address] Dr. Leonides Anders MANUAL DIFF REQ NO Normal [facility] Comment on above: Performed By: #### C BC #### [facility] Laboratory [address] [place] [address] Dr. Leonides Anders MCH (RBC) [Entitic mass] 30.6 pg Normal 26.7-34.0 [facility] Comment on above: Performed By: #### C BC #### [facility] Laboratory [address] [place] [address] Dr. Leonides Anders MCHC (RBC) [Mass/Vol] 34.3 g/dL Normal 29.9-35.2 [facility] Comment on above: Performed By: #### C BC #### [facility] Laboratory [address] [place] [address] Dr. Leonides Anders MCV (RBC) [Entitic vol] 89.3 fL Normal 81.0-99.0 [facility] Comment on above: Performed By: #### C BC #### [facility] Laboratory [address] [place] [address] Dr. Leonides Anders MONO # 0.4 103/ul Normal 0.3-0.8 [facility] Comment on above: Performed By: #### C BC #### [facility] Laboratory [address] [place] [address] Dr. Leonides Anders Monocytes/100 WBC (Bld) 6.3 % Normal 1.7-12.0 [facility] Comment on above: Performed By: #### C BC #### [facility] Laboratory [address] [place] [address] Dr. Leonides Anders NEUT # 4.9 103/ul Normal 1.4-6.5 [facility] Comment on above: Performed By: #### C BC #### [facility] Laboratory [address] [place] [address] Dr. Leonides Anders Neutrophils/100 WBC (Bld) 71.6 % Normal 43.0-75.0 [facility] Comment on above: Performed By: #### C BC #### [facility] Laboratory [address] [place] [address] Dr. Leonides Anders Platelet mean volume (Bld) [Entitic vol] 9.1 fL Critically low 9.5-13.5 [facility] Comment on above: Performed By: #### C BC #### [facility] Laboratory [address] [place] [address] Dr. Leonides Anders PLT 235 103/ul Normal 150-450 [facility] Comment on above: Performed By: #### C BC #### [facility] Laboratory [address] [place] [address] Dr. Leonides Anders RBC 5.03 106/ul Normal 4.20-5.40 [facility] Comment on above: Performed By: #### C BC #### [facility] Laboratory [address] [place] [address] Dr. Leonides Anders WBC 6.8 103/ul Normal 4.0-11.0 [facility] Comment on above: Performed By: #### C BC #### [facility] Laboratory [address] [place] [address] ABD/PELV W CONon [...] by: MARGARET PARRA Date: 2021-11-03 10:51 Normal [facility] LACTATE/LACTIC ACIDon 2021 Lactate [Moles/Vol] 0.9 mmol/L Normal 0.4-1.9 [facility] Comment on above: Performed By: #### L ACT ####[facility] [address] [address]Dr. Leonides Anders LIPASEon 11-03-2021 Lipase [Catalytic activity/Vol] 44.0 U/L Critically low 73.0-393.0 [facility] Comment on above: Performed By: #### L IPA, CMP ####[facility] [address] [address]Dr. Leonides Anders PROF 14(COMP METB)on 022 Albumin [Mass/Vol] 4.3 g/dL Normal 3.4-5.0 [facility] Comment on above: Performed By: #### L IPA, CMP ####[facility] [address] [id number]. Leonides Anders Albumin/Globulin [Mass ratio] 1.3 {ratio} Normal [facility] Comment on above: Performed By: #### L IPA, CMP ####[facility] [address] [address]Dr. Leonides Anders ALP [Catalytic activity/Vol] 95 U/L Normal 46-116 [facility] Comment on above: Performed By: #### L IPA, CMP ####[facility] [address] [place] [address]Dr. Leonides Anders ALT [Catalytic activity/Vol] 20 U/L Normal 14-59 [facility] Comment on above: Performed By: #### L IPA, CMP ####[facility] [address] [place] [address]Dr. Leonides Anders Anion gap [Moles/Vol] 14.9 mmol/L Normal [facility] Comment on above: Performed By: #### L IPA, CMP ####[facility] [address] [place], [place] [address]Dr. Leonides Anders AST [Catalytic activity/Vol] 21 U/L Normal 15-37 [facility] Comment on above: Performed By: #### L IPA, CMP ####[facility] [address] [place], [place] [address]Dr. Leonides Anders Bilirubin [Mass/Vol] 0.5 mg/dL Normal 0.2-1.0 [facility] Comment on above: Performed By: #### L IPA, CMP ####[facility] [address] [place], [place] [address]Dr. Leonides Anders Calcium [Mass/Vol] 9.6 mg/dL Normal 8.5-10.1 [facility] Comment on above: Performed By: #### L IPA, CMP ####[facility] [address] [place], [place] [address]Dr. Leonides Anders Chloride [Moles/Vol] 99 mmol/L Normal 98-107 [facility] Comment on above: Performed By: #### L IPA, CMP ####[facility] [address] [address]Dr. Leonides Anders CO2 [Moles/Vol] 23.1 mmol/L Normal 21.0-32.[address] [facility] Comment on above: Performed By: #### L IPA, CMP ####[facility] [address] [place], [place] [address]Dr. Leonides Anders Creatinine [Mass/Vol] 0.69 mg/dL Normal 0.55-1.02 [facility] Comment on above: Performed By: #### L IPA, CMP ####[facility] [address] [place] [address]Dr. Leonides Anders EGFR-AF ARMENIAN >60 Normal >=60 [facility] Comment on above: Performed By: #### L IPA, CMP ####[facility] [address] [place] [address]Dr. Leonides Anders EGFR-NON AF ARMENIAN >60 Normal >=60 [facility] Comment on above: Performed By: #### L IPA, CMP ####[facility] [address] [place] [address]Dr. Leonides Anders Globulin (S) [Mass/Vol] 3.4 g/dL Normal [facility] Comment on above: Performed By: #### L IPA, CMP ####[facility] [address] [address]Dr. Leonides Anders Glucose [Mass/Vol] 121 mg/dL Critically high 74-106 [facility] Comment on above: Performed By: #### L IPA, CMP ####[facility] [address] [place] [address]Dr. Leonides Anders Potassium [Moles/Vol] 4.0 mmol/L Normal 3.5-5.1 [facility] Comment on above: Performed By: #### L IPA, CMP ####[facility] [address] [place] [address]Dr. Leonides Anders Protein [Mass/Vol] 7.7 g/dL Normal 6.4-8.2 [facility] Comment on above: Performed By: #### L IPA, CMP ####[facility] [address] [place] [address]Dr. Leonides Anders Sodium [Moles/Vol] 133 mmol/L Critically low 136-145 [facility] Comment on above: Performed By: #### L IPA, CMP ####[facility] [address] [place] [address]Dr. Leonides Anders Urea nitrogen [Mass/Vol] 6.0 mg/dL Critically low 7.0-18.0 [facility] Comment on above: Performed By: #### L IPA, CMP ####[facility] [address] [place], [place] [address]Ku. Leonides Anders Urea nitrogen/Creatinine [Mass ratio] 8.7 mg/mg Normal [facility] Comment on above: Performed By: #### L IPA, CMP ####[facility] [address] [place], [place] [address]Dh. Leonides Anders TROPONIN, HIGH SENSITIVITYon 11-03-2021 HSTROP 6.0 pg/mL Normal 4.0-51.3 [facility] Comment on above: Result Comment: CUT- OFF POINTS HAVE BEEN ESTABLISHED BASED ON THE FOURTH UNIVERSAL DEFINITIONS OF MYOCARDIAL INFARCTION. THE UPPER REFERENCE LIMIT (URL) OF TROPONIN, DEFINED THE 99TH PERCENTILE OF cTnI DISTRIBUTION IN A REFERENCE POPULATION, HAS BEEN CONFIRMED THE DECISION THRESHOLD FOR HI DIAGNOSIS. Performed By: #### H STROPN ####[facility] [address] [place], [place] [address]Gd. Leonides Anders [place] 03-26-2021 SHAUNAN Telephone (HEMAGRE) CANDY BOOTH ([id number]) 1970 F Date Time Provider Department 03/26/21 RODY SAMUEL HEMJACOBOE During your visit today, we [...] Date Reviewed: 11/08/2020 Reviewed by: Ariana Matute APRN.HAND TRUCKER - Fully Assessed Reason for Visit: Rx [...] Encounter Status:Closed by LORI TAMEZ on 08/06/21 [facility] [place] 11-29-2020 SHAUNAN Telephone (PAYMILLJAMIE) EMMYCANDY ([id number]) 1970 F Date Time Provider Department 11/29/20 [...] Date Reviewed: 11/08/2020 Reviewed by: Ariana Matute APRN.HAND TRUCKER - Fully Assessed Reason for Visit: Lab Orders [1688] 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] Order(s):CBC + DIFF (FOR REMOTE [facility] USE) [SQRCBCDF] Order #: [id number] STANDING COMP METABOLIC PANEL [SQCMP] Order #: [id number] STANDING FERRITIN BLD [SQFERR] Order #: [id number] STANDING IRON + TIBC [SQIRON] Order #: [id number] STANDING VITAMIN B12 BLOOD [SQB12] Order #: [id number] STANDING Prescriptions as of 11/30/2020 - amitriptyline [...] Encounter Status:Closed by MICHELLE ALLISON on 11/30/20 [facility] CNOVSPon 11-08-2020 CNOVSP Visit (SP) Office (HEMASA) CANDY BOOTH ([id number]) 1970 F Date Time Provider Department 11/08/20 1:30 PM ARIANA MATUTE During your visit today, we recorded the following information about you: Temperature Pulse Respiration Blood pressure 97.2 degrees 94/minute 16/minute 118/79 Weight Height 92.4 kg 1.702 m Ariana Matute APRN.CNP 11/08/2020 3:37 PM Signed NAME: Candy Booth CLINIC NO.: [id number] DATE OF SERVICE: November 08, 2020 Referring [...] pill endoscopy. 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 She has primary complaints of fatigue but [...] cap capsule (more content not included)... Normal [facility] Comp Metabolic Panelon 11-08 Albumin [Mass/Vol] 4.4 g/dL Normal 3.9-4.[address] [facility] Comment on above: Performed By: #### F ERR, B12, IRON #### [facility] [address] [place] [address] ALP [Catalytic activity/Vol] 111 U/L Normal 34-123 [facility] Comment on above: Performed By: #### F ERR, B12, IRON #### [facility] [address] [place] [address] ALT [Catalytic activity/Vol] 7 U/L Normal 7-38 [facility] Comment on above: Performed By: #### F ERR, B12, IRON #### [facility] [address] [place] [address] Anion gap [Moles/Vol] 7 mmol/L Low 9-18 [facility] Comment on above: Performed By: #### F ERR, B12, IRON #### [facility] [address] [place] [address] AST [Catalytic activity/Vol] 17 U/L Normal 13-35 [facility] Comment on above: Performed By: #### F ERR, B12, IRON #### [facility] [address] [place] [address] Bilirubin [Mass/Vol] mg/dL Low 0.2-1.3 [facility] Comment on above: Performed By: #### F ERR, B12, IRON #### [facility] [address] [place] [address] Calcium [Mass/Vol] 9.7 mg/dL Normal 8.5-10.[address] [facility] Comment on above: Performed By: #### F ERR, B12, IRON #### [facility] [address] [place] [address] Chloride [Moles/Vol] 100 mmol/L Normal 97-105 [facility] Comment on above: Performed By: #### F ERR B12, IRON #### [facility] [address] [place] [address] CO2 [Moles/Vol] 26 mmol/L Normal 22-30 [facility] Comment on above: Performed By: #### F ERR B12, IRON #### [place] [phone] Creatinine [Mass/Vol] 0.63 mg/dL Normal 0.58-0.96 [facility] Comment on above: Performed By: #### F ERR B12, IRON #### [place] [address] eGFR- Amer. >[address] [facility] Comment on above: Performed By: #### F ERR, B12, IRON #### [place] [address] eGFR-All Other Races >60 Normal [facility] Comment on [...] By: #### F ERR, B12, IRON #### [facility] [address] [place] [address] Glucose [Mass/Vol] 104 mg/dL High 74-[address] [facility] Comment on above: Result Comment: The [place] [employer] Association (ADA) provides guidance for cutoff [...] Standards of Medical Care in Diabetes 2016, [place] [employer]. Diabetes Care. 2016.39(Suppl 1). Performed By: #### F ERR, B12, IRON #### [facility] [address] [place] [address] Potassium [Moles/Vol] 4.4 mmol/L Normal 3.7-5.1 [facility] Comment on above: Performed By: #### F ERR, B12, IRON #### [place] [address] Protein [Mass/Vol] 6.9 g/dL Normal 6.3-8.[address] [facility] Comment on above: Performed By: #### F ERR, B12, IRON #### [place] [address] Sodium [Moles/Vol] 133 mmol/L Low 136-[address] [facility] Comment on above: Performed By: #### F ERR, B12, IRON #### [place] [address] [place] [address] Urea nitrogen [Mass/Vol] 9 mg/dL Normal 7-21 [facility] Comment on above: Performed By: #### F ERR, B12, IRON #### [place] [address] [place] [address] Ferritinon 11-08-2020 Ferritin [Mass/Vol] 13.1 ng/mL Low 14.7-205.1 [facility] Comment on above: Performed By: #### F ERR, B12, IRON #### [place] [address] Iron and TIBCon 11-08-2020 Iron [Mass/Vol] 29 ug/dL Low 41-186 [facility] Comment on above: Performed By: #### F ERR, B12, IRON #### [facility] [address] [place], [place] [id number] TIBC 405 ug/dL High 232-386 [facility] Comment on above: Performed By: #### F ERR, B12, IRON #### [facility] [address] [place], [place] [phone] Transferrin Saturatn 7 % Low 15-57 [facility] Comment on above: Performed By: #### F ERR, B12, IRON #### [facility] [address] [place], [place] [phone] Remote CBCDIF (for [facility] use o nly)on 11-08-2020 Abs Baso 0.04 k/uL Normal <0.11 [facility] Abs [place] 0.79 k/uL Normal <0.87 [facility] Abs Neut 8.64 k/uL High 1.45-7.50 [facility] Absolute nRBC <0.01 Normal <0.01 [facility] Basophils/100 WBC (Bld) 0.3 % Normal [facility] DTYPE Auto Diff Normal [facility] Eosinophils (Bld) [#/Vol] 0.11 10*3/uL Normal <0.46 [facility] Eosinophils/100 WBC (Bld) 0.9 % Normal [facility] Erythrocyte distribution width (RBC) [Ratio] 18.0 % High 11.5-15.0 [facility] Hematocrit (Bld) [Volume fraction] 34.8 % Low 36.0-46.0 [facility] Hemoglobin (Bld) [Mass/Vol] 11.2 g/dL Low 11.5-15.5 [facility] Lymphocytes (Bld) [#/Vol] 2.16 10*3/uL Normal 1.00-4.00 [facility] Lymphocytes/100 WBC (Bld) 18.4 % Normal [facility] MCH 25.5 pG Low 26.0-34.0 [facility] MCHC (RBC) [Mass/Vol] 32.2 g/dL Normal 30.5-36.0 [facility] MCV (RBC) [Entitic vol] 79.1 fL Low 80.0-100.0 [facility] Monocytes/100 WBC (Bld) 6.7 % Normal [facility] Neutrophils/100 WBC (Bld) 73.7 % Normal [facility] NRBCs 0.0 /100 WBC Normal 0 [facility] Platelet mean volume (Bld) [Entitic vol] 9.3 fL Normal 9.0-12.7 [facility] Platelets (Bld) [#/Vol] 253 10*3/uL Normal 150-400 [facility] RBC (Bld) [#/Vol] 4.40 10*6/uL Normal 3.90-5.20 [facility] WBC (Bld) [#/Vol] 11.74 10*3/uL High 3.70-11.00 [facility] Vitamin B12on 11-08-2020 Cobalamin (Vitamin B12) [Mass/Vol] 236 pg/mL Normal 232-1245 [facility] Comment on above: Performed By: #### F ERR, B12, IRON #### [facility] [address] [place] [id number] CNPIsela 11-02-2020 CNPN Telephone (NEFTALI) CANDY BOOTH ([id number]) 1970 F Date Time Provider Department 11/02/20 ARIANA MATUTE During your visit today, we recorded the following information about you: August11/02/2020 8:07 AM Signed Patient schedule to see you Friday11/08/20 for follow up lab. Please sign pending cbc order. Thanks, August Zaire Allergies As of Date: 11/02/2020 Noted Allergy [...] Fully Assessed Reason for Visit: Lab Orders [1078] Primary Visit Diagnosis:Megaloblas tic anemia due to [...] Encounter Status:Closed by ANALISA AVALOS on 11/06/20 [facility] 10-11-2020 [facility] Nurse Visit (NEFTALI) CANDY BOOTH ([id number]) 1970 F Date Time Provider Department 10/11/20 4:00 PM THANH LINDSAY During your visit today, we recorded the following information about you: Analisa Avalos 10/11/2020 4:09 PM Signed Patient Identification confirmed: yes. Injection given and documented on JUL per provider order. 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] Order(s):TREATMENT PARAMETER-NOT NEEDED [7247742] Order #: [id number]: 1 [facility] [[id number]] Order #: [id number]: 1 STANDING [] cyanocobalamin 1,000 mcg injectionDisp: [...] 10/11/2020 Route: INTRAMUSCULA Encounter Status:Closed by ANALISA AVALOS on 10/11/20 [facility] CNOVSPon 10-11-2020 CNOVSP Visit (SP) Office (HEMASA) CANDY BOOTH ([id number]) 1970 F Date Time Provider Department 10/11/20 3:15 PM SARITHA AMAYA During your visit today, we recorded the following information about you: Temperature Pulse Respiration Blood pressure 96.9 degrees 120/minute 16/minute 111/60 Weight Height 92.3 kg 1.702 m Saritha Amaya MD 10/21/2020 6:59 PM Signed NAME: Candy Booth CLINIC NO.: [id number] DATE OF SERVICE: October 11, 2020 Referring [...] pill endoscopy. 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 Normal [facility] Comp Metabolic Panelon 10-11 Albumin [Mass/Vol] 4.2 g/dL Normal 3.9-4.[address] [facility] ALP [Catalytic activity/Vol] 102 U/L Normal 34-123 [facility] ALT [Catalytic activity/Vol] 7 U/L Normal 7-38 [facility] Anion gap [Moles/Vol] 10 mmol/L Normal 9-18 [facility] AST [Catalytic activity/Vol] 19 U/L Normal 13-35 [facility] Bilirubin [Mass/Vol] mg/dL Low 0.2-1.3 [facility] Calcium [Mass/Vol] 9.7 mg/dL Normal 8.5-10.[address] [facility] Chloride [Moles/Vol] 98 mmol/L Normal 97-105 [facility] CO2 [Moles/Vol] 22 mmol/L Normal 22-30 [facility] Creatinine [Mass/Vol] 0.58 mg/dL Normal 0.58-0.96 [facility] eGFR- Amer. >[address] [facility] eGFR-All Other Races >60 [facility] Comment on above: Result Comment: eGFR [...] Glucose [Mass/Vol] 106 mg/dL High 74-[address] [facility] Comment on above: Result Comment: The [place] Diabetes [employer] (ADA) provides guidance for cutoff [...] Standards of Medical Care in Diabetes 2016, [place] [employer]. Diabetes Care. 2016.39(Suppl 1). Potassium [Moles/Vol] 4.2 mmol/L Normal 3.7-5.1 [facility] Protein [Mass/Vol] 7.2 g/dL Normal 6.3-8.[address] [facility] Sodium [Moles/Vol] 130 mmol/L Low 136-[address] [facility] Urea nitrogen [Mass/Vol] 3 mg/dL Low 7-21 [facility] Ferritinon 10-11-2020 Ferritin [Mass/Vol] 23.6 ng/mL Normal 14.7-205.1 [facility] Comment on above: Performed By: #### I RYAN, B12, SERFOL, FERR #### [facility] [address] [place] [address] Folate, Serumon 10-11-2020 Folate [Mass/Vol] 12.7 ng/mL Normal >4.7 [facility] Comment on above: Performed By: #### I RYAN, B12, SERFOL, FERR #### [facility] [address] [place], [place] [address] Iron and TIBCon 10-11-2020 Iron [Mass/Vol] 22 ug/dL Low 41-186 [facility] Comment on above: Performed By: #### I RYAN, B12, SERFOL, FERR #### [facility] [address] [place], [place] [address] TIBC 386 ug/dL Normal 232-386 [facility] Comment on above: Performed By: #### I RYAN, B12, SERFOL, FERR #### [place] [address] [place], [place] [address] Transferrin Saturatn 6 % Low 15-57 [facility] Comment on above: Performed By: #### I RYAN, B12, SERFOL, FERR #### [place] [address] [place] [id number] LDon 10-11-2020 LD 182 U/L Normal 135-214 [facility] Remote CBCDIF (for [facility] use o nly)on 10-11-2020 Abs Baso 0.05 k/uL Normal <0.11 [facility] Abs [place] 0.67 k/uL Normal <0.87 [facility] Abs Neut 6.73 k/uL Normal 1.45-7.50 [facility] Absolute nRBC <0.01 Normal <0.01 [facility] Basophils/100 WBC (Bld) 0.5 % Normal [facility] DTYPE Auto Diff Normal [facility] Eosinophils (Bld) [#/Vol] 0.13 10*3/uL Normal <0.46 [facility] Eosinophils/100 WBC (Bld) 1.4 % Normal [facility] Erythrocyte distribution width (RBC) [Ratio] 18.4 % High 11.5-15.0 [facility] Hematocrit (Bld) [Volume fraction] 34.7 % Low 36.0-46.0 [facility] Hemoglobin (Bld) [Mass/Vol] 11.0 g/dL Low 11.5-15.5 [facility] Lymphocytes (Bld) [#/Vol] 2.00 10*3/uL Normal 1.00-4.00 [facility] Lymphocytes/100 WBC (Bld) 20.9 % Normal [facility] MCH 25.7 pG Low 26.0-34.0 [facility] MCHC (RBC) [Mass/Vol] 31.7 g/dL Normal 30.5-36.0 [facility] MCV (RBC) [Entitic vol] 81.1 fL Normal 80.0-100.0 [facility] Monocytes/100 WBC (Bld) 7.0 % Normal [facility] Neutrophils/100 WBC (Bld) 70.2 % Normal [facility] NRBCs 0.0 /100 WBC Normal 0 [facility] Platelet mean volume (Bld) [Entitic vol] 9.7 fL Normal 9.0-12.7 [facility] Platelets (Bld) [#/Vol] 338 10*3/uL Normal 150-400 [facility] RBC (Bld) [#/Vol] 4.28 10*6/uL Normal 3.90-5.20 [facility] WBC (Bld) [#/Vol] 9.58 10*3/uL Normal 3.70-11.00 [facility] Vitamin B12on 10-11-2020 Cobalamin (Vitamin B12) [Mass/Vol] 188 pg/mL Low 232-1245 [facility] Comment on above: Performed By: #### I RYAN, B12, SERFOL, FERR #### [facility] [address] [place] [address] FLUORO FOR SURGICAL PROCEDUR ESon 02-09-2018 FLUORO [...] by:FANG Angeligned by:Callum Salinas MD02/09/18inal result Normal [facility] Surgical Specimenon 02-10-20 Surgical Specimen Invalid Interpretation Code [facility] Comment on above: Result Comment: [place] [id number] [place] [id number] [phone] SURGICAL PATHOLOGY REPORTPatient Name: CANDY BOOTH Accession No: [id number] Age Sex: 1970 Location: DIS ORPOOLNONAccount No: [id number] Collected: 02/09/2018Med Rec No: [id number] Received: 02/09/2018Attend Phys: RONAL REJI Completed: 02/11/2018Perform Phys: RONAL YOOFINAL DIAGNOSIS:DISC TISSUE, L4-5, LEFT-DEGENERATED CARTILAGE. SIVES/SIVESCLINICAL INFORMATION:L4-5 left HNP. Disk.SPECIMEN:DiscGROSS DESCRIPTION:Specimen container is labeled with the patient's name and designated spine . In formalin are multiple irregular shaggy fragments of villarreal andpink soft and firm tissue measuring in aggregate 3 x 2.5 x 0.5 cm.Majority of tissue is submitted in two cassettes. PUNEET/FLODYT: [id number] ROMERO M.D. 02/11/2018 Electronically signed out by Page 1 of 1 Basic Metabolic Panelon 01-24 Anion gap 3 molar conc 12 mmol/L Normal 7-13 [facility] Calcium mass conc 9.2 mg/dL Normal 8.6-10.2 [facility] Chloride molar conc 102 mmol/L Normal 98-107 [facility] CO2 molar conc 25 mmol/L Normal 22-29 [facility] Creatinine mass conc 0.42 mg/dL Low 0.50-0.90 [facility] GFR/1.73 sq M predicted among blacks MDRD vol rate/area (S/P/Bld) mL/min/{1.73_m2} Normal >60 [facility] Comment on above: Result Comment: >60 mL/min/1.73m2 EGFR, calc. for ages 18 and older using theMDRD formula (not corrected for weight), is valid for stablerenal function. GFR/1.73 sq M.predicted MDRD vol rate/area mL/min/{1.73_m2} Normal >60 [facility] Comment on above: Result Comment: >60 mL/min/1.73m2 EGFR, calc. for ages 18 and older using theMDRD formula (not corrected for weight), is valid for stablerenal function. Glucose mass conc 82 mg/dL Normal 74-109 [facility] Potassium molar conc 4.2 mmol/L Normal 3.5-5.1 [facility] Sodium molar conc 139 mmol/L Normal 132-144 [facility] Urea nitrogen mass conc 6 mg/dL Normal 6-20 [facility] CBC With Platelet No Differe ntialon 02-06-2018 Erythrocyte distribution width Auto Ratio (RBC) 20.2 % Critically high 11.5-14.5 [facility] Hematocrit Auto Volume Fraction (Bld) 36.3 % Low 37.0-47.0 [facility] Hemoglobin mass conc (Bld) 11.5 g/dL Low 12.0-16.0 [facility] MCH Auto Entitic mass (RBC) 24.1 pg Low 27.0-31.3 [facility] MCHC Auto mass conc (RBC) 31.7 % Low 33.0-37.0 [facility] MCV Auto Entitic volume (RBC) 76.0 fL Low 82.0-100.0 [facility] Platelets Auto #/vol (Bld) 203 10*3/uL Normal 130-400 [facility] RBC Auto #/vol (Bld) 4.78 10*6/uL Normal 4.20-5.40 [facility] WBC Auto #/vol (Bld) 4.9 10*3/uL Normal 4.8-10.8 [facility] Partial Thromboplastin Timeo n 02-06-2018 aPTT Coag time (Bld) 26.6 s Normal 21.6-35.4 [facility] Comment on above: Result Comment: Hepa rin Therapeutic Range: 38.8 - 54.6 seconds. Prothrombin Timeon 201 8 INR Coag RelTime (PPP) 0.9 {INR} Normal [facility] Comment on above: Result [...] Coag time (PPP) 9.4 s Low 9.6-12.3 [facility] Type and Screen Capture 3 sc rn cellon 02-06-2018 Bilirubin mass conc PATIENT: EMMY Acuña LOC: [facility]ERS BILL# : [id number] : 1970 SEX: FORDERED BY: EMILY LUCERO ORDERED : 02/06/2018 07:42 COLLECTED: 02/06/2018 08:25ORDER : [id number] RECEIVED : 02/06/2018 08:25 ---TEST NAME RESULT UNITS RANGES ABN FL STABORH Capture O NEG FAntibody 3 Cell Scrn Captu NEG F Normal [facility] Urinalysis, reflex to cultur constantin 02-06-2018 Bilirubin Ql (U) Negative Normal Negative [facility] Clarity Nom (U) Clear Normal Clear [facility] Color Nom (U) Yellow Normal Straw/Tama [facility] Glucose Ql (U) Negative Normal Negative [facility] Hemoglobin Test strip Ql (U) Negative Normal Negative [facility] Ketones Ql (U) Negative Normal Negative [facility] Leukocyte esterase Test strip Ql (U) Negative Normal Negative [facility] Nitrite Test strip Ql (U) Negative Normal Negative [facility] pH Test strip (U) 6.0 [pH] Normal 5.0-9.0 [facility] Protein Test strip Ql (U) Negative Normal Negative [facility] Specific gravity Relative Density (U) 1.009 Normal 1.005-1.03 [facility] Urine Reflexed to Culture Not Indicated Normal [facility] Urobilinogen Test strip Qn (U) 0.2 {[place]'U}/dL Normal < 2.0 [facility] Vital Signs Date Time Vital Sign Value Performing Clinician Facility 02-25-2025 11:27-0400 Diastolic blood pressure 80 mm[Hg] Maureen Gilmore MD Work Phone: [facility] 02-25-2025 11:27-0400 Heart rate 93 /min Maureen Gilmore MD Work Phone: [facility] 02-25-2025 11:27-0400 Respiratory rate 18 /min Maureen Gilmore MD Work Phone: [facility] 02-25-2025 11:27-0400 SaO2% (BldA) [Mass fraction] 97 % Maureen Gilmore MD Work Phone: [facility] 02-25-2025 11:27-0400 Systolic blood pressure 134 mm[Hg] Maureen Gilmore MD Work Phone: [facility] 02-25-2025 04:11-0400 Body weight 75.4 kg Maureen Gilmore MD Work Phone: [facility] 02-25-2025 00:00-0400 Body temperature 97.9 [degF] Maureen Gilmore MD Work Phone: [facility] 02-21-2025 14:28-0400 Body height 170.18 cm Maureen Gilmore MD Work Phone: [facility] 02-18-2025 23:56-0400 Body temperature 101.9 [degF] Maureen Gilmore MD Work Phone: [facility] 02-18-2025 23:56-0400 Diastolic blood pressure 68 mm[Hg] Maureen Gilmore MD Work Phone: [facility] 02-18-2025 23:56-0400 Heart rate 117 /min Maureen Gilmore MD Work Phone: [facility] 02-18-2025 23:56-0400 Respiratory rate 18 /min Maureen Gilmore MD Work Phone: [facility] 02-18-2025 23:56-0400 SaO2% (BldA) [Mass fraction] 98 % Maureen Gilmore MD Work Phone: [facility] 02-18-2025 23:56-0400 Systolic blood pressure 127 mm[Hg] Maureen Gilmore MD Work Phone: [facility] 02-18-2025 02:37-0400 Inhaled oxygen flow rate 2 L/min Maureen Gilmore MD Work Phone: [facility] 02-18-2025 01:49-0400 Body height 170.18 cm Maureen Gilmore MD Work Phone: [facility] 02-18-2025 01:49-0400 Body weight 80.4 kg Maureen Gilmore MD Work Phone: [facility] 02-01-2025 16:00-0400 Diastolic blood pressure 56 mm[Hg] Maureen Gilmore MD Work Phone: [facility] 02-01-2025 16:00-0400 Heart rate 84 /min Maureen Gilmore MD Work Phone: [facility] 02-01-2025 16:00-0400 Respiratory rate 16 /min Maureen Gilmore MD Work Phone: [facility] 02-01-2025 16:00-0400 SaO2% (BldA) [Mass fraction] 95 % Maureen Gilmore MD Work Phone: [facility] 02-01-2025 16:00-0400 Systolic blood pressure 116 mm[Hg] Maureen Gilmore MD Work Phone: [facility] 02-01-2025 12:00-0400 Body temperature 97.2 [degF] Maureen Gilmore MD Work Phone: [facility] 02-01-2025 12:00-0400 Inhaled oxygen flow rate 2 L/min Maureen Gilmore MD Work Phone: [facility] 02-01-2025 06:00-0400 Body weight 79.8 kg Maureen Gilmore MD Work Phone: [facility] 01-27-2025 14:23-0400 Body height 167.64 cm Maureen Gilmore MD Work Phone: [facility] 10-20-2024 16:01-0400 Body height 170.18 cm [facility] 10-20-2024 16:01-0400 Body mass index (BMI) [Ratio] 29.7 kg/m2 [facility] 10-20-2024 16:01-0400 Body temperature 97 [degF] [facility] 10-20-2024 16:01-0400 Body weight 86.18 kg [facility] 10-20-2024 16:01-0400 Diastolic blood pressure 75 mm[Hg] [facility] 10-20-2024 16:01-0400 Heart rate 117 /min [facility] 10-20-2024 16:01-0400 Systolic blood pressure 103 mm[Hg] [facility] 07-27-2024 16:10-0500 Body temperature 97.3 [degF] [facility] 06-11-2024 10:00-0500 Body temperature 98.29 [degF] Jovana Holloway MD Work Phone: [facility] 06-11-2024 10:00-0500 Diastolic blood pressure 83 mm[Hg] Jovana Holloway MD Work Phone: [facility] [employer] 06-11-2024 10:00-0500 Heart rate 105 /min Jovana Holloway MD Work Phone: [facility] [facility] 06-11-2024 10:00-0500 Respiratory rate 16 /min Jovana Holloway MD Work Phone: [facility] [employer] [facility] 06-11-2024 10:00-0500 SaO2% (BldA) [Mass fraction] 92 % Jovana Holloway MD Work Phone: [facility] [employer] [facility] [employer] 06-11-2024 10:00-0500 Systolic blood pressure 137 mm[Hg] Jovana Holloway MD Work Phone: [facility] [facility] 06-08-2024 12:37-0500 Body height 170.2 cm Jovana Holloway MD Work Phone: [facility] [facility] 06-08-2024 12:37-0500 Body mass index (BMI) [Ratio] 30.67 kg/m2 Jovnaa Holloway MD Work Phone: [facility] [employer] [facility] 06-08-2024 12:37-0500 Body weight 88.81 kg Jovana Holloway MD Work Phone: [facility] [employer] [facility] 05-07-2024 09:22-0500 Body height 162.6 cm Yossi Hunter MD Work Phone: [facility] 05-07-2024 09:22-0500 Body mass index (BMI) [Ratio] 32.61 kg/m2 Yossi Hunter MD Work Phone: [facility] 05-07-2024 09:22-0500 Body weight 86.18 kg Yossi Hunter MD Work Phone: [facility] 05-07-2024 09:22-0500 Diastolic blood pressure 80 mm[Hg] Yossi Hunter MD Work Phone: [facility] 05-07-2024 09:22-0500 Heart rate 100 /min Yossi Hunter MD Work Phone: [facility] 05-07-2024 09:22-0500 Systolic blood pressure 126 mm[Hg] Yossi Hunter MD Work Phone: [facility] 04-29-2024 15:37-0500 Body height 170.18 cm Maureen Gilmore MD Work Phone: [facility] 04-29-2024 15:37-0500 Body mass index (BMI) [Ratio] 29.7 kg/m2 Maureen Gilmore MD Work Phone: [facility] 04-29-2024 15:37-0500 Body weight 86 kg Maureen Gilmore MD Work Phone: [facility] 04-29-2024 15:37-0500 Diastolic blood pressure 85 mm[Hg] Maureen Gilmore MD Work Phone: [facility] 04-29-2024 15:37-0500 Heart rate 120 /min Maureen Gilmore MD Work Phone: [facility] 04-29-2024 15:37-0500 Systolic blood pressure 119 mm[Hg] Maureen Gilmore MD Work Phone: [facility] 04-08-2024 15:03-0500 Body height 170.18 cm [facility] 04-08-2024 15:03-0500 Body mass index (BMI) [Ratio] 29.7 kg/m2 [facility] 04-08-2024 15:03-0500 Body weight 86.18 kg [facility] 04-08-2024 15:03-0500 Diastolic blood pressure 76 mm[Hg] [facility] 04-08-2024 15:03-0500 Heart rate 114 /min [facility] 04-08-2024 15:03-0500 Systolic blood pressure 108 mm[Hg] [facility] 04-07-2024 08:38-0500 Diastolic blood pressure 68 mm[Hg] Yossi Hunter MD Work Phone: [facility] 04-07-2024 08:38-0500 Heart rate 99 /min Yossi Hunter MD Work Phone: [facility] 04-07-2024 08:38-0500 Systolic blood pressure 110 mm[Hg] Yossi Hunter MD Work Phone: [facility] 03-30-2024 13:56-0500 Body height 167.64 cm [facility] 03-30-2024 13:56-0500 Body mass index (BMI) [Ratio] 28.8 kg/m2 [facility] 03-30-2024 13:56-0500 Body temperature 97.7 [degF] [facility] 03-30-2024 13:56-0500 Body weight 81 kg [facility] 03-30-2024 13:56-0500 Diastolic blood pressure 80 mm[Hg] [facility] 03-30-2024 13:56-0500 Heart rate 108 /min [facility] 03-30-2024 13:56-0500 Systolic blood pressure 112 mm[Hg] [facility] 02-26-2024 15:00-0400 Body height 167.64 cm [facility] 02-26-2024 15:00-0400 Body mass index (BMI) [Ratio] 29.8 kg/m2 [facility] 02-26-2024 15:00-0400 Body weight 83.91 kg [facility] 02-26-2024 15:00-0400 Diastolic blood pressure 88 mm[Hg] [facility] 02-26-2024 15:00-0400 Heart rate 122 /min [facility] 02-26-2024 15:00-0400 Respiratory rate 18 /min [facility] 02-26-2024 15:00-0400 SaO2% (BldA) [Mass fraction] 91 % [facility] 02-26-2024 15:00-0400 Systolic blood pressure 132 mm[Hg] [facility] 01-30-2024 11:32-0400 Body height 167.64 cm [facility] 01-30-2024 11:32-0400 Body mass index (BMI) [Ratio] 27.4 kg/m2 [facility] 01-30-2024 11:32-0400 Body weight 77.11 kg [facility] 01-30-2024 11:32-0400 Diastolic blood pressure 75 mm[Hg] [facility] 01-30-2024 11:32-0400 Heart rate 108 /min [facility] 01-30-2024 11:32-0400 Systolic blood pressure 115 mm[Hg] [facility] 01-20-2024 13:55-0400 Body height 167.64 cm [facility] 01-20-2024 13:55-0400 Body mass index (BMI) [Ratio] 27.2 kg/m2 [facility] 01-20-2024 13:55-0400 Body weight 76.65 kg [facility] 01-20-2024 13:55-0400 Diastolic blood pressure 62 mm[Hg] [facility] 01-20-2024 13:55-0400 Heart rate 130 /min [facility] 01-20-2024 13:55-0400 SaO2% (BldA) [Mass fraction] 75 % [facility] 01-20-2024 13:55-0400 Systolic blood pressure 76 mm[Hg] [facility] 01-05-2024 15:46-0400 Body temperature 98.01 [degF] Keli Rabago MD Work Phone: [employer] 01-05-2024 15:46-0400 Diastolic blood pressure 71 mm[Hg] Keli Rabago MD Work Phone: [employer] 01-05-2024 15:46-0400 Heart rate 89 /min Keli Rabago MD Work Phone: [employer] 01-05-2024 15:46-0400 Respiratory rate 18 /min Keli Rabago MD Work Phone: [employer] 01-05-2024 15:46-0400 SaO2% (BldA) [Mass fraction] 91 % Keli Rabago MD Work Phone: [facility] 01-05-2024 15:46-0400 Systolic blood pressure 106 mm[Hg] Keli Rabago MD Work Phone: [facility] 01-05-2024 06:00-0400 Body mass index (BMI) [Ratio] 31.97 kg/m2 Keli Rabago MD Work Phone: [facility] 01-05-2024 06:00-0400 Body weight 92.6 kg Keli Rabago MD Work Phone: [facility] 01-02-2024 14:46-0400 Body height 170.2 cm Keli Rabago MD Work Phone: [facility] 12-18-2023 13:49-0400 Body height 167.64 cm [facility] 12-18-2023 13:49-0400 Body mass index (BMI) [Ratio] 29.3 kg/m2 [facility] 12-18-2023 13:49-0400 Body weight 82.55 kg [facility] 12-18-2023 13:49-0400 Diastolic blood pressure 61 mm[Hg] [facility] 12-18-2023 13:49-0400 Heart rate 128 /min [facility] 12-18-2023 13:49-0400 Systolic blood pressure 85 mm[Hg] [facility] 12-11-2023 16:13-0400 Body height 167.64 cm [facility] 12-11-2023 16:13-0400 Body mass index (BMI) [Ratio] 32 kg/m2 [facility] 12-11-2023 16:13-0400 Body temperature 97 [degF] [facility] 12-11-2023 16:13-0400 Body weight 90 kg [facility] 12-11-2023 16:13-0400 Diastolic blood pressure 78 mm[Hg] [facility] 12-11-2023 16:13-0400 Heart rate 117 /min [facility] 12-11-2023 16:13-0400 Systolic blood pressure 123 mm[Hg] [facility] 10-14-2023 16:06-0400 Body temperature 97.9 [degF] [facility] 10-14-2023 16:06-0400 Heart rate 116 /min [facility] 10-14-2023 16:06-0400 SaO2% (BldA) [Mass fraction] 89 % [facility] 09-22-2023 14:17-0400 Body height 167.64 cm [facility] 09-22-2023 14:17-0400 Diastolic blood pressure 77 mm[Hg] [facility] 09-22-2023 14:17-0400 Heart rate 66 /min [facility] 09-22-2023 14:17-0400 Systolic blood pressure 109 mm[Hg] [facility] 09-12-2023 09:25-0400 Body height 167.64 cm [facility] 09-12-2023 09:25-0400 Body mass index (BMI) [Ratio] 31.3 kg/m2 [facility] 09-12-2023 09:25-0400 Body temperature 97.3 [degF] [facility] 09-12-2023 09:25-0400 Body weight 88 kg [facility] 09-12-2023 09:25-0400 Diastolic blood pressure 68 mm[Hg] [facility] 09-12-2023 09:25-0400 Heart rate 113 /min [facility] 09-12-2023 09:25-0400 Systolic blood pressure 103 mm[Hg] [facility] 08-26-2023 15:11-0400 Body height 167.64 cm [facility] 08-26-2023 15:11-0400 Body mass index (BMI) [Ratio] 30.4 kg/m2 [facility] 08-26-2023 15:11-0400 Body weight 85.5 kg [facility] 08-26-2023 15:11-0400 Diastolic blood pressure 65 mm[Hg] [facility] 08-26-2023 15:11-0400 Heart rate 121 /min [facility] 08-26-2023 15:11-0400 Systolic blood pressure 95 mm[Hg] [facility] 07-15-2023 12:00-0500 Diastolic blood pressure 56 mm[Hg] [address] 07-15-2023 12:00-0500 Heart rate 65 /min [address] 07-15-2023 12:00-0500 Respiratory rate 20 /min [address] 07-15-2023 12:00-0500 Systolic blood pressure 90 mm[Hg] [address] 07-15-2023 11:56-0500 SaO2% (BldA) [Mass fraction] 94 % [address] 07-01-2023 14:27-0500 Diastolic blood pressure 98 mm[Hg] Yossi Hunter MD Work Phone: [facility] 07-01-2023 14:27-0500 Heart rate 110 /min Yossi Hunter MD Work Phone: [facility] 07-01-2023 14:27-0500 Systolic blood pressure 124 mm[Hg] Yossi Hunter MD Work Phone: [facility] 06-13-2023 12:53-0500 Body height 162.[address] 06-13-2023 12:53-0500 Body mass index (BMI) [Ratio] 32.61 kg/m2 [address] 06-13-2023 12:53-0500 Body weight 86.[address] 06-13-2023 12:53-0500 Diastolic blood pressure 60 mm[Hg] [address] 06-13-2023 12:53-0500 Systolic blood pressure 110 mm[Hg] [address] 05-27-2023 14:04-0500 Body height 162.6 cm Yossi Hunter MD Work Phone: [facility] 05-27-2023 14:04-0500 Body mass index (BMI) [Ratio] 32.77 kg/m2 Yossi Hunter MD Work Phone: [facility] 05-27-2023 14:04-0500 Body weight 86.59 kg Yossi Hunter MD Work Phone: [facility] 05-27-2023 14:04-0500 Diastolic blood pressure 82 mm[Hg] Yossi Hunter MD Work Phone: [facility] 05-27-2023 14:04-0500 Heart rate 112 /min Yossi Hunter MD Work Phone: [facility] 05-27-2023 14:04-0500 Systolic blood pressure 122 mm[Hg] Yossi Hunter MD Work Phone: [facility] 03-13-2023 15:30-0400 Body height 167.64 cm Maureen Gilmore Other [email or web address] Other 03-13-2023 15:30-0400 Body mass index (BMI) [Ratio] 30.99 kg/m2 Maureen Gilmore Other [email or web address] Other 03-13-2023 15:30-0400 Body weight 87.09 kg Maureen Gilmore Other [email or web address] Other 03-13-2023 15:30-0400 Diastolic blood pressure 67 mm[Hg] Maureen Gilmore Other [email or web address] Other 03-13-2023 15:30-0400 Systolic blood pressure 106 mm[Hg] Maureen Gilmore Other [email or web address] Other 07-30-2022 15:45-0500 Body height 167.64 cm Maureen Gilmore Other [email or web address] Other 07-30-2022 15:45-0500 Body mass index (BMI) [Ratio] 33.25 kg/m2 Maureen Gilmore Other [email or web address] Other 07-30-2022 15:45-0500 Body weight 93.44 kg Maureen Gilmore Other [email or web address] Other 07-30-2022 15:45-0500 Diastolic blood pressure 92 mm[Hg] Maureen Gilmore Other [email or web address] Other 07-30-2022 15:45-0500 Systolic blood pressure 158 mm[Hg] Maureen Gilmore Other [email or web address] Other 11-23-2021 14:27-0400 Blood Pressure Location Ibrahima NILL [facility] [place] 11-23-2021 14:27-0400 Diastolic blood pressure 86 mm[Hg] Ibrahima N[facility] [place] 11-23-2021 14:27-0400 Heart rate 72 /min Ibrahima N[facility] [place] 11-23-2021 14:27-0400 Respiratory rate 16 /min Ibrahima NILL [facility] [place] 11-23-2021 14:27-0400 Systolic blood pressure 126 mm[Hg] Ibrahima NILL [facility] [place] Encounters Encounter Date Encounter Type Care Provider Facility Start: 03-08-2025 End: 03-08-2025 ambulatory Maureen Gilmore MD Work Phone: [facility] Work Phone: Start: 03-08-2025 End: 03-08-2025 Thi Barfield APRN -[facility] Work Phone: Start: 03-08-2025 End: 03-08-2025 ambulatory Maureen Gilmore MD Work Phone: [facility] Work Phone: Start: 03-08-2025 End: 03-08-2025 Maureen Gilmore MD -[facility] Work Phone: Start: 03-03-2025 End: 03-03-2025 ambulatory Maureen Gilmore MD Work Phone: [facility] Work Phone: Start: 03-03-2025 End: 03-03-2025 Maureen Gilmore MD -[facility] Work Phone: Start: 02-28-2025 Tiffany WalkerFP [facility] Work Phone: Start: 02-18-2025 Cookie Terry MD -[facility] Work Phone: Start: 02-18-2025 End: 02-25-2025 Evaluation and management of inpatient Yamaty Jimenezin Facility:[facility] Start: 02-17-2025 End: 02-17-2025 ambulatory Maureen Gilmore MD Work Phone: [facility] Work Phone: Start: 02-17-2025 End: 02-17-2025 Jayjay Bajwa DO -[facility] Start: 02-17-2025 End: 02-17-2025 ambulatory Jayjay Oscar Facility:[facility] Start: 02-17-2025 Jayjay Bajwa DO -[facility] Work Phone: Start: 02-02-2025 Tiffany Egan CMA -[facility] Work Phone: Start: 02-01-2025 Barbi Nelson APRN - [facility] Vascular Surg Work Phone: Start: 01-29-2025 End: 02-04-2025 External Result Encounter Martina Suarez MD Work Phone: [facility] External Department Unsolicited Start: 01-29-2025 End: 02-04-2025 External Result Encounter Martina Suarez MD Work Phone: [facility] External Department Unsolicited Start: 01-25-2025 Palmira Cope MD -[facility] Work Phone: Start: 01-25-2025 End: 02-01-2025 Evaluation and management of inpatient Yessenia Mischler Facility:[facility] Start: 01-25-2025 Jackson Mondragon MD -[facility] Work Phone: Start: 01-24-2025 Jackson Mondragon MD -[facility] Work Phone: Start: 01-23-2025 Jackson Mondragon MD -[facility] Work Phone: Start: 01-22-2025 End: 01-22-2025 ambulatory Isha Holley Facility:[facility] Start: 01-22-2025 Isha Holley MD -[facility] Work Phone: Start: 01-18-2025 End: 01-18-2025 ambulatory Maureen Gilmore MD Work Phone: [facility] Work Phone: Start: 01-18-2025 End: 01-18-2025 Patient encounter procedure Maureen Gilmore MD -[facility] Work Phone: Start: 01-18-2025 End: 01-18-2025 Maureen Gilmore MD -[facility] Work Phone: Start: 01-11-2025 End: 01-11-2025 Thi Barfield APRN -[facility] Work Phone: Start: 01-11-2025 End: 01-11-2025 ambulatory Maureen Gilmore MD Work Phone: [facility] Work Phone: Start: 01-11-2025 End: 01-11-2025 Patient encounter procedure Thi Barfield APRN -[facility] Work Phone: Start: 12-23-2024 Non-patient / Non-visit Maureen badillo MD -[facility] [place] Work Phone: Start: 12-23-2024 Maureen Gilmore MD -[facility] [place] Work Phone: Start: 12-16-2024 ambulatory Neli Portillo Facility:[facility] [place] Start: 12-13-2024 Non-patient / Non-visit Alyssa cage [facility] Work Phone: Start: 12-13-2024 Alyssa Romo [facility] Work Phone: Start: 12-07-2024 Non-patient / Non-visit Maureen badillo MD -[facility] [place] Work Phone: Start: 12-07-2024 Maureen Gilmore MD -[facility] [place] Work Phone: Start: 12-05-2024 Non-patient / Non-visit Jackson morales MD -[facility] Work Phone: Start: 12-05-2024 Jackson Mondragon MD -[facility] Work Phone: Start: 12-04-2024 Non-patient / Non-visit Jackson morales MD -[facility] Work Phone: Start: 12-04-2024 Jackson Mondragon MD -[facility] Work Phone: Start: 12-03-2024 Non-patient / Non-visit Jackson morales MD -[facility] Work Phone: Start: 12-03-2024 Jackson Mondragon MD -[facility] Work Phone: Start: 12-02-2024 Non-patient / Non-visit Jackson morales MD -[facility] Work Phone: Start: 12-02-2024 Jackson Mondragon MD -[facility] Work Phone: Start: 12-01-2024 Non-patient / Non-visit Jackson morales MD -[facility] Work Phone: Start: 12-01-2024 Jackson Mondragon MD -[facility] Work Phone: Start: 11-30-2024 Non-patient / Non-visit Isha montgomery MD -[facility] Work Phone: Start: 11-30-2024 Isha Holley MD -[facility] Work Phone: Start: 10-20-2024 End: 10-20-2024 ambulatory [facility] Work Phone: Start: 10-20-2024 End: 10-20-2024 Patient encounter procedure [facility] Work Phone: Start: 07-27-2024 End: 07-27-2024 ambulatory [facility] Work Phone: Start: 07-27-2024 End: 07-27-2024 Patient encounter procedure [facility] Work Phone: Start: 06-30-2024 End: 06-30-2024 ambulatory Maureen Gilmore MD Work Phone: [facility] Work Phone: Start: 06-30-2024 End: 06-30-2024 Patient encounter procedure Maureen Gilmore MD Work Phone: [facility] Work Phone: Start: 06-11-2024 Non-patient / Non-visit Maureen Gilmore MD Work Phone: [facility] Work Phone: Start: 06-08-2024 End: 06-11-2024 Evaluation and management of inpatient Jovana Holloway MD Work Phone: [facility] Start: 05-28-2024 End: 05-28-2024 ambulatory Maureen Gilmore MD Work Phone: [facility] Work Phone: Start: 05-28-2024 End: 05-28-2024 Patient encounter procedure Maureen Gilmore MD Work Phone: [facility] Work Phone: Start: 05-07-2024 End: 05-07-2024 Office outpatient visit 25 minutes Yossi Hunter MD Work Phone: [facility] Comment on above: Heart valve disease; Dilation of aorta ([facility]); Essential hypertension; BMI 32.0-32.9,adult; Smoker Start: 05-07-2024 End: 05-07-2024 ambulatory [facility] Start: 05-06-2024 Non-patient / Non-visit Maureen Gilmore MD Work Phone: [facility] Work Phone: Start: 04-29-2024 End: 04-29-2024 ambulatory Maureen Gilmore Facility:[facility] Start: 04-29-2024 End: 04-29-2024 Departed Referred Maureen Gilmore MD Work Phone: [facility] [place] Work Phone: Start: 04-29-2024 Encounter for other preprocedural examination Maureen Gilmore [facility] Start: 04-29-2024 End: 04-29-2024 Patient encounter procedure Maureen Gilmore MD Work Phone: [facility] Work Phone: Start: 04-08-2024 Patient encounter status Laura Gilmore MD Work Phone: [facility] Start: 04-08-2024 Preprocedural examination done Maureen Gilmore MD Work Phone: [facility] Start: 04-08-2024 End: 04-08-2024 ambulatory [facility] Work Phone: Start: 04-08-2024 End: 04-08-2024 Encounter for other preprocedural examination Maureen Gilmore MD Work Phone: [facility] Start: 04-08-2024 End: 04-08-2024 [facility] encounter procedure [facility] Work Phone: Start: 04-07-2024 End: 04-07-2024 Office outpatient visit 25 minutes Yossi Hunter MD Work Phone: [facility] Comment on above: Pre-operative cleara nce; Pre-op examination; Heart valve disease; Dilation of aorta ([facility]); Essential hypertension; Smoker Start: 04-07-2024 End: 04-07-2024 Preoperative state Yossi Hunter MD Work Phone: [facility] Start: 04-07-2024 End: 04-07-2024 Preprocedural examination done Yossi Hunter MD Work Phone: [facility] Start: 04-07-2024 End: 04-07-2024 ambulatory [facility] Start: 04-07-2024 End: 04-07-2024 Encounter for other preprocedural examination [facility] Start: 04-06-2024 Non-patient / Non-visit Maureen Gilmore MD Work Phone: [facility] Work Phone: Start: 04-01-2024 Non-patient / Non-visit [facility] Work Phone: Start: 03-30-2024 End: 03-30-2024 ambulatory [facility] Work Phone: Start: 03-30-2024 End: 03-30-2024 Patient encounter procedure [facility] Work Phone: Start: 02-26-2024 End: 02-26-2024 ambulatory [facility] Work Phone: Start: 02-26-2024 End: 02-26-2024 Patient encounter procedure [facility] Work Phone: Start: 02-26-2024 Non-patient / Non-visit [facility] Work Phone: Start: 01-30-2024 End: 01-30-2024 ambulatory [facility] Work Phone: Start: 01-30-2024 End: 01-30-2024 Patient encounter procedure [facility] Work Phone: Start: 01-20-2024 Non-patient / Non-visit [facility] Work Phone: Start: 01-20-2024 End: 01-20-2024 ambulatory [facility] Work Phone: Start: 01-20-2024 End: 01-20-2024 Patient encounter procedure [facility] Work Phone: Start: 01-12-2024 Non-patient / Non-visit [facility] Work Phone: Start: 01-12-2024 End: 01-12-2024 ambulatory Bhupinder Shelton MD Facility:[facility] Start: 01-06-2024 Non-patient / Non-visit [facility] Work Phone: Start: 01-06-2024 End: 01-11-2024 Evaluation and management of inpatient TARUNHÉCTOR BARRETT [facility] Start: 01-06-2024 Non-patient / Non-visit [facility] Work Phone: Start: 12-30-2023 End: 01-05-2024 Evaluation and management of inpatient SHAIKH ANA PAULA [facility] Comment on above: Syncope, unspecified syncope type (Primary Dx) Start: 12-30-2023 Non-patient / Non-visit [facility] Work Phone: Start: 12-29-2023 Non-patient / Non-visit [facility] Work Phone: Start: 12-28-2023 End: 12-30-2023 Non-patient / Non-visit [facility] Work Phone: Start: 12-28-2023 Non-patient / Non-visit [facility] Work Phone: Start: 12-18-2023 End: 12-18-2023 ambulatory [facility] Work Phone: Start: 12-18-2023 End: 12-18-2023 [facility] encounter procedure [facility] Work Phone: Start: 12-11-2023 End: 12-11-2023 ambulatory [facility] Work Phone: Start: 12-11-2023 End: 12-11-2023 Patient encounter procedure [facility] Work Phone: Start: 11-11-2023 End: 11-11-2023 ambulatory DARLENE GONZALEZ Not Available Start: 11-10-2023 Non-patient / Non-visit [facility] Work Phone: Start: 11-10-2023 Non-patient / Non-visit [facility] Work Phone: Start: 10-22-2023 End: 10-22-2023 ambulatory DOROTHY Montgomery APLING Not Available Start: 10-22-2023 End: 10-22-2023 ambulatory DOROTHY Montgomery APLING Not Available Start: 10-14-2023 End: 10-14-2023 ambulatory [facility] Work Phone: Start: 10-14-2023 End: 10-14-2023 [facility] encounter [facility] Work Phone: Start: 09-22-2023 End: 09-22-2023 ambulatory [facility] Work Phone: Start: 09-22-2023 End: 09-22-2023 Patient encounter procedure [facility] Work Phone: Start: 09-12-2023 End: 09-12-2023 ambulatory [facility] Work Phone: Start: 09-12-2023 End: 09-12-2023 Patient encounter procedure [facility] Work Phone: Start: 09-03-2023 Non-patient / Non-visit [facility] Work Phone: Start: 08-26-2023 End: 08-26-2023 ambulatory [facility] Work Phone: Start: 08-26-2023 End: 08-26-2023 Patient encounter procedure [facility] Work Phone: Start: 07-23-2023 Non-patient / Non-visit [facility] Work Phone: Start: 07-23-2023 Non-patient / Non-visit [facility] Work Phone: Start: 07-15-2023 End: 07-15-2023 Subsequent hospital visit by physician Jyotsna [id number] [facility] Comment on above: Essential hypertensi on; Shortness of breath; Angina pectoris, unstable (CMS/HCC) Start: 07-15-2023 End: 07-15-2023 ambulatory [facility] Start: 07-07-2023 End: 07-07-2023 ambulatory Maureen Gilmore Other [email or web address] Other Start: 07-07-2023 Telephone encounter Maureen Gilmore [facility] Start: 07-01-2023 End: 07-01-2023 Office outpatient visit 25 minutes Yossi Hunter MD Work Phone: [facility] Comment on above: Angina pectoris, uns table (CMS/HCC) (Primary Dx); Dilation of aorta (CMS/HCC); Essential hypertension; Heart valve disease; Shortness of breath; Smoker; BMI 32.0-32.9,adult Start: 07-01-2023 End: 07-01-2023 ambulatory [facility] Start: 06-19-2023 End: 06-19-2023 ambulatory Maureen Gilmore Other [email or web address] Other Start: 06-19-2023 Office outpatient vi sit 15 minutes Maureen Gilmore [facility] Start: 06-13-2023 End: 06-13-2023 Subsequent hospital visit by physician Jyotsna Alcala305 Echo/Vasc 3 [facility] Comment on above: Shortness of breath; Heart valve disease; Dizziness; Dilation of aorta (CMS/HCC) Start: 06-13-2023 End: 06-13-2023 ambulatory [facility] Start: 06-02-2023 End: 06-02-2023 ambulatory Maureen Gilmore Other [email or web address] Other Start: 06-02-2023 Telephone encounter Maureen Gilmore [facility] Start: 05-27-2023 End: 05-27-2023 Office outpatient new 45 minutes Yossi Hunter MD Work Phone: [facility] Comment on above: Shortness of breath; Essential hypertension; BMI 32.0-32.9,adult; Smoker; Heart valve disease; Dizziness; Dilation of aorta (CMS/HCC) Start: 05-27-2023 End: 05-27-2023 ambulatory [facility] Amb[facility] Start: 05-15-2023 End: 05-15-2023 ambulatory Maureen Gilmore Other [email or web address] Other Start: 05-15-2023 Telephone encounter Maureen Mando [facility] Start: 05-01-2023 End: 05-01-2023 ambulatory Maureen Gilmore Other [email or web address] Other Start: 05-01-2023 Telephone encounter Maureen Mando [facility] Start: 04-21-2023 End: 04-21-2023 ambulatory Maureen Gilmore Other [email or web address] Other Start: 04-21-2023 Telephone encounter Maureen Gilmore [facility] Start: 04-03-2023 (Televisit) Televisit Maureen Gilmore [facility] Start: 04-03-2023 End: 04-03-2023 ambulatory Maureen Mando Other [email or web address] Other Start: 04-03-2023 Telephone encounter Maureen Mando [facility] Start: 04-01-2023 End: 04-01-2023 ambulatory Maureen Mando Other [email or web address] Other Start: 04-01-2023 Telephone encounter Maureen Mando [facility] Start: 03-13-2023 End: 03-13-2023 ambulatory Maureen Mando Other [email or web address] Other Start: 03-13-2023 Office outpatient vi sit 25 minutes Maureen Gilmore [facility] Start: 03-13-2023 Telephone encounter Maureen Mando [facility] Start: 02-13-2023 End: 02-13-2023 ambulatory Maureen Mando Other [email or web address] Other Start: 02-13-2023 Telephone encounter Maureen Mando [facility] Start: 01-30-2023 End: 01-30-2023 ambulatory Maureen Gilmore Other [email or web address] Other Start: 01-30-2023 Telephone encounter Maureen Gilmore [facility] Start: 01-16-2023 End: 01-16-2023 ambulatory Maureen Gilmore Other [email or web address] Other Start: 01-16-2023 Telephone encounter Maureen Gilmore [facility] Start: 12-31-2022 End: 12-31-2022 ambulatory Maureen Gilmore Other [email or web address] Other Start: 12-31-2022 Telephone encounter Maureen Gilmore [facility] Start: 12-06-2022 End: 12-06-2022 ambulatory Maureen Gilmore Other [email or web address] Other Start: 12-06-2022 Telephone encounter Maureen Gilmore [facility] Start: 11-18-2022 End: 11-18-2022 ambulatory Maureen Gilmore Other [email or web address] Other Start: 11-18-2022 Telephone encounter Maureen Gilmore [facility] Start: 11-06-2022 End: 11-06-2022 ambulatory Maureen Gilmore Other [email or web address] Other Start: 11-06-2022 Telephone encounter Maureen Gilmore [facility] Start: 09-19-2022 End: 09-19-2022 ambulatory Maureen Gilmore Other [email or web address] Other Start: 09-19-2022 Telephone encounter Maureen Gilmore [facility] Start: 09-10-2022 End: 09-10-2022 ambulatory Maureen Gilmore Other [email or web address] Other Start: 09-10-2022 Telephone encounter Maureen Gilmore [facility] Start: 08-22-2022 End: 08-22-2022 ambulatory Maureen Gilmore Other [email or web address] Other Start: 08-22-2022 Telephone encounter Maureen Gilmore [facility] Start: 08-19-2022 End: 08-19-2022 ambulatory Otoniel Robin Other [email or web address] Other Start: 08-19-2022 Telephone encounter Otoniel Kelly [employer] Start: 07-30-2022 End: 07-30-2022 ambulatory Maureen Gilmore Other [email or web address] Other Start: 07-30-2022 Office outpatient vi sit 25 minutes Maureen Gilmore [facility] Start: 07-25-2022 End: 07-25-2022 ambulatory Maureen Gilmore Other [email or web address] Other Start: 07-25-2022 Telephone encounter Maureen Gilmore [facility] Start: 07-24-2022 End: 07-24-2022 ambulatory Maureen Gilmore Other [email or web address] Other Start: 07-24-2022 Telephone encounter Maureen Gilmore [facility] Start: 03-29-2022 End: 03-30-[address] MAUREEN GILMORE Facility:[facility] Start: 03-29-2022 Adult health examination Laura Gilmore Other [email or web address] Other Start: 03-25-2022 End: 03-26-[address] MAUREEN GILMORE Facility:[facility] Start: 12-28-2021 End: 01-15-2022 ambulatory MAUREEN GILMORE Facility:[facility] Start: 12-05-2021 Encounter for genera l adult medical examination without abnormal findings DR MAUREEN GILMORE [facility] Start: 12-04-2021 End: 12-05-[address] IBRAHIMA GONZALEZ Facility:[facility] Start: 12-04-2021 End: 12-05-2021 Encounter for general adult medical examination without abnormal findings DR MAUREEN GILMORE Facility:[facility] Start: 11-23-2021 End: 11-23-2021 Patient encounter procedure Ibrahima R NILL [facility] [place] Start: 11-03-2021 End: 11-03-[address] CHONG GUTIERREZ Facility: Start: 02-09-2018 End: 02-09-2018 Patient encounter [facility] Start: 02-06-2018 End: 02-11-2018 Patient encounter [facility] Procedures Date Procedure Procedure Detail Performing Clinician Start: 02-17-2025 Urine culture Maureen Gilmore MD Work Phone: Start: 02-17-2025 Maureen Gilmore MD Work Phone: Start: 01-29-2025 PROTEIN ELECTRO, RANDOM URINE Martina [...] Vascular embolization or occlusion hemorrhage Lola Quinones SENIOR SALES OPERATIONS ANALYST - HAND TRUCKER Work Phone: Start: 01-01-2024 Ecg routine ecg [...] End: 12-31-2023 Prothrombin time Christina Watkins se SENIOR SALES OPERATIONS ANALYST - HAND TRUCKER Work Phone: Start: 12-30-2023 End: 12-31-2023 Basic [...] GONZALEZ Start: 02-09-2016 Substance abuse counseling Maureen Gilmore Other Start: 09-20-2014 General examination of patient Maureen Virgilio boone Other Start: 09-20-2014 Screening mammography Maureen Gilmore Other Appendectomy Ibrahima NILL Circumferential body lift Kori devine NILL Excision of lumbar intervertebral disc Ibrahima NILL Comment on above: L4-L5 Exploratory laparotomy Marty post NILL 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 Keli Rabago MD Work Phone: History of gastroint estinal tract bypass Maureen Gilmore MD Work Phone: History of gastroint estinal tract bypass Palmira Cope MD History of gastroint estinal tract bypass Cookie Terry MD Linsey-en-Y gastrojejunostomy Ibrahima NILL Screening for malign ant neoplasm of breast Maureen Gilmore Other Total abdominal hyst erectomy with bilateral salpingo-oophorectomy Ibrahima NILL Plan of Treatment Date Care Activity Detail Author Start: 10-21-2027 Screening for malignant neoplasm of colon [facility] Start: 02-26-2025 [facility] Start: 02-25-2025 [facility] Start: 02-21-2025 Referral to infectious diseases physician [facility] Start: 02-19-2025 [facility] Start: 02-18-2025 Physical therapy procedure [facility] Start: 02-18-2025 Referral to occupational therapist [facility] Start: 02-18-2025 Hospital admission [facility] Start: 02-18-2025 [facility] Start: 02-17-2025 Urine culture [facility] Start: 02-17-2025 End: 02-17-2025 [facility] Start: 02-01-2025 [facility] Start: 01-31-2025 [facility] Start: 01-29-2025 [facility] Start: 01-27-2025 Referral to wharf laborer [facility] Start: 01-26-2025 Consultation [facility] Start: 01-26-2025 Referral to vascular surgeon [facility] Start: 01-25-2025 Referral to it project coordinator [facility] Start: 01-25-2025 [facility] Start: 01-25-2025 Hospital admission [facility] Start: 01-25-2025 Referral to back tender fourdrinier [facility] Start: 01-24-2025 Influenza vaccination Influenza Vaccine (#1) [facility] Start: 01-22-2025 Urine culture [facility] Start: 10-06-2024 End: 10-06-2024 Patient encounter procedure 10/06/2024 10:00 AM EDT Office Visit [facility] [address] [phone] Yossi Hunter MD [address] [facility] [address], [address] [place], [place] [id number] [facility] Start: 04-29-2024 EKG 12 channel panel [facility] Start: 02-03-2024 Patient referral [facility] Work Phone: Start: 01-25-2024 COVID-19 Vaccine ( season) COVID-19 Vaccine ( season) [employer] Start: 01-25-2024 COVID-19 Vaccine ( season) COVID-19 Vaccine ( season) [facility] Start: 01-25-2024 Influenza vaccination Influenza Vaccine (#1) [facility] Start: 01-20-2024 Patient referral [facility] Work Phone: Start: 12-30-2023 Annual Wellness Visit (Medicare) Annual Wellness Visit (Medicare) [employer] Start: 12-25-2023 Influenza vaccination Flu vaccine (#1) [employer] Start: 12-18-2023 Patient referral [facility] Work Phone: Start: 09-30-2023 End: 09-30-2023 Patient encounter procedure 09/30/2023 10:00 AM EDT Office Visit [facility] [address] [place] [id number] Yossi Hunter MD [address] [facility] Medical Office [facility], [address] [address] [facility] Start: 07-01-2023 End: 07-01-2024 CTA Heart and Coronary arteries WO and W contrast IV CT angio coronary art with heartflow if score >30% Imaging Routine Essential hypertension Shortness of breath Angina pectoris, unstable (CMS/HCC) Expected: 07/01/2023 (Approximate), Expires: 07/01/2024 [facility] Service Area Work Phone: Comment on above: Expected: 07/01/2023 (Approximate), Expi res: 07/01/2024 Start: 07-01-2023 End: 07-01-2023 Patient encounter procedure 07/01/2023 2:00 PM EST Office Visit [facility] [address] [phone] Yossi Hunter MD [address] [facility] Office [facility], [address] [id number] [facility] Start: 05-27-2023 End: 05-27-2024 CT Chest WO contrast CT chest wo IV contrast Imaging Routine Heart valve disease Dilation of aorta (CMS/HCC) Expected: 05/27/2023 (Approximate), Expires: 05/27/2024 [facility] Work Phone: Comment on above: Expected: 05/27/2023 (Approximate), Expi res: 05/27/2024 Start: 05-27-2023 End: 05-27-2025 Heart Transthoracic Transthoracic Echo (TTE) Complete Echocardiography Routine Shortness of breath Heart valve disease Dizziness Dilation of aorta (CMS/HCC) Expected: 05/27/2023 (Approximate), Expires: 05/27/2025 [facility] Service Area Work Phone: Comment on above: Expected: 05/27/2023 (Approximate), Expi res: 05/27/2025 Start: 01-24-2023 COVID-19 Vaccine () COVID-19 Vaccine ( season) [facility] Start: 01-24-2023 Influenza vaccination Influenza Vaccine (#1) [facility] Start: 07-08-2021 COVID-19 Vaccine (4 - Pfizer series) COVID-19 Vaccine (4 - Pfizer series) [facility] Start: 02-03-2021 Screening for malignant neoplasm of breast Breast cancer screen [facility] Start: 02-04-2020 Screening for malignant neoplasm of breast Mammogram [facility] Start: 2018 Shingles vaccine (1 of 2) Shingles vaccine (1 of 2) [facility] Start: 2018 Zoster Vaccines (1 of 2) Zoster Vaccines (1 of 2) [facility] Start: 2013 Screening for malignant neoplasm of colon [facility] Start: 2008 Lipid panel Lipids [facility] Start: 2008 Screening for malignant neoplasm of breast Mammogram [facility] Start: 10-06-2003 Diabetes screen Diabetes screen [facility] Start: 1998 Screening for malignant neoplasm of cervix [facility] Start: 05-17-1997 DTaP/Tdap/Td vaccine (1 - Tdap) DTaP/Tdap/Td vaccine (1 - Tdap) [facility] Start: 05-17-1997 DTaP/Tdap/Td Vaccines (1 - Tdap) DTaP/Tdap/Td Vaccines (1 - Tdap) [facility] Start: 1989 Screening for malignant neoplasm of cervix [facility] Start: 10-06-1987 Hepatitis B vaccine (1 of 3 - 19+ 3-dose series) Hepatitis B vaccine (1 of 3 - 19+ 3-dose series) [facility] Start: 1986 Diabetes mellitus screening Diabetes Screening [facility] Start: 1986 Hepatitis C screening [facility] Start: 10-06-1983 HIV screening HIV screen [facility] Start: 1980 Depression Screen Depression Screen [facility] Start: 1974 Pneumococcal 0-64 years Vaccine (1 of 2 - PCV) Pneumococcal 0-64 years Vaccine (1 of 2 - PCV) [facility] Start: 1974 Pneumococcal Vaccine: Pediatrics (0 to 5 Years) and At-Risk Patients (6 to 64 Years) (1 - PCV) Pneumococcal Vaccine: Pediatrics (0 to 5 Years) and At-Risk Patients (6 to 64 Years) (1 - PCV) [facility] Start: 1974 Pneumococcal Vaccine: Pediatrics (0 to 5 Years) and At-Risk Patients (6 to 64 Years) (1 of 2 - PCV) Pneumococcal Vaccine: Pediatrics (0 to 5 Years) and At-Risk Patients (6 to 64 Years) (1 of 2 - PCV) [facility] Start: 1968 HIV screening HIV Screening [facility] Start: 1968 Lipid panel Lipid Panel [facility] Start: 1968 Medicare Annual Wellness Visit Medicare Annual Wellness Visit (AWV) [facility] Start: 1968 Screening for malignant neoplasm of colon [facility] Start: 1968 Screening for osteoporosis Bone Density Scan [facility] Start: 1968 Yearly Adult Physical Yearly Adult Physical [facility] Albumin [Mass/volume ] in Serum or Plasma [facility] Albumin/Globulin ratio [facility] Anion gap measurement [facility] ANTICARDIOLIPIN IGG/M/A, QN ANTI CARDIOLIPIN IGG/M/A, QN Lab Routine 01/29/2025 4:29 AM EDT [facility] [employer] Work Phone: End: 01-02-2024 aPTT in Blood by Coagulation assay APTT Lab Routine Post Transfusion Post Transfusion Post Transfustion for 1 Occurrences starting 01/01/2024 until 01/02/2024 [facility] Comment on above: Post Transfusion Post Transfusion Post T ransfustion for 1 Occurrences starting 01/01/2024 until 01/02/2024 End: 06-15-2024 Basic metabolic 2000 panel - Serum or Plasma Basic Metabolic Panel Lab Routine Daily for 1 Weeks starting 06/09/2024 until 06/15/2024, 3 completed [employer] Comment on above: Daily for 1 Weeks starting 06/09/2024 un til 06/15/2024, 3 completed End: 01-06-2024 Basic metabolic 2000 panel - Serum or Plasma Basic Metabolic Panel Lab Routine Daily for 3 Days starting 01/04/2024 until 01/06/2024, 2 completed [employer] Comment on above: Daily for 3 Days starting 01/04/2024 unt il 01/06/2024, 2 completed End: 01-06-2024 CBC W Auto Differential panel - Blood CBC with Auto Differential Lab Routine Daily for 3 Days starting 01/04/2024 until 01/06/2024, 2 completed [employer] Comment on above: Daily for 3 Days starting 01/04/2024 unt il 01/06/2024, 2 completed Comprehensive metabo lic 2000 panel - Serum or Plasma [facility] Continuous pulse oximetry Pulse oximetry, continuous Respiratory Care Routine Every 4hr until discontinued starting 01/02/2024 [employer] Comment on above: Every 4hr until discontinued starting End: 01-02-2024 EKG 12 Lead EKG 12 Lead ECG Routine One Time for 1 Occurrences starting 01/02/2024 until 01/02/2024 [employer] Work Phone: Comment on above: One Time for 1 Occurrences starting 01/2024 until 01/02/2024 Electrophoresis: [id number] [facility] Electrophoresis: [id number] [facility] Electrophoresis: beta-globulin [facility] Electrophoresis: lily ma globulin [facility] F2 gene mutations fo und [Identifier] in Blood or Tissue by Molecular genetics method [facility] F5 gene mutations fo und [Identifier] in Blood or Tissue by Molecular genetics method [facility] Globulin [Mass/volum e] in Serum [facility] Glomerular filtratio n rate [Volume Rate/Area] in Serum, Plasma or Blood by Creatinine [facility] End: 06-15-2024 Hemoglobin and Hematocrit Hemoglobin and Hematocrit Lab Routine Daily for 1 Weeks starting 06/09/2024 until 06/15/2024, 3 completed [employer] Comment on above: Daily for 1 Weeks starting 06/09/2024 un til 06/15/2024, 3 completed End: 01-15-2024 Hemoglobin and Hematocrit Hemoglobin and Hematocrit Lab Routine Post Transfusion Post Transfusion Post Transfustion until discontinued starting 01/01/2024 [employer] Comment on above: Post Transfusion Post Transfusion Post T ransfustion until discontinued starting 01/01/2024 End: 01-07-2024 Hemoglobin and Hematocrit Hemoglobin and Hematocrit Lab Routine Every 12 hours (Lab) for 3 Days starting 01/04/2024 until 01/07/2024, 2 completed [employer] Comment on above: Every 12 hours (Lab) for 3 Days starting 01/04/2024 until 01/07/2024, 2 completed MR Brain WO contrast [facility] Oxygen therapy [Mini mum Data Set] Initiate Oxygen Therapy Protocol Respiratory Care Routine As Needed until discontinued starting 06/08/2024 [employer] Comment on above: As Needed until discontinued starting Oxygen therapy [Mini mum Data Set] Initiate Oxygen Therapy Protocol Respiratory Care Routine As Needed until discontinued starting 12/30/2023 [employer] Work Phone: Comment on above: As Needed until discontinued starting Patient Education [facility] Work Phone: Patient referral [facility] Work Phone: End: 01-01-2024 PREPARE RBC (CROSSMATCH), 1 Units PREPARE RBC (CROSSMATCH), 1 Units Blood Bank Routine Once for 1 Occurrences starting 01/01/2024 until 01/01/2024 [employer] Comment on above: Once for 1 Occurrences starting 01/01/20 24 until 01/01/2024 Protein [Mass/volume ] in Serum or Plasma [facility] Protein C Ag actual/ normal in Platelet poor plasma by Immunoassay [facility] End: 01-02-2024 Protime-INR Protime-INR Lab Routine Post Transfusion Post Transfusion Post Transfustion for 1 Occurrences starting 01/01/2024 until 01/02/2024 [employer] Work Phone: Comment on above: Post Transfusion Post Transfusion Post T ransfustion for 1 Occurrences starting 01/01/2024 until 01/02/2024 Spirometry panel Incentive papi metry Respiratory Care Routine Every 2hr while awake until discontinued starting 06/08/2024 [facility] Comment on above: Every 2hr while awake until discontinued starting 06/08/2024 Urine culture [facility] Immunizations Immunization Date Immunization Notes Care Provider Fa cili 05-13-2021 influenza virus vaccine, unspecified formulation Yossi Hunter MD Work Phone: [facility] Work Phone: 08-22-2020 COVID-19 Vaccine Pfi zer - Documentation Purposes Only Maureen Gilmore Other [facility] 08-02-2020 COVID-19 Vaccine Pfi zer - Documentation Purposes Only Maureen Gilmore Other [facility] 04-28-2020 influenza virus vaccine, split virus (incl. purified surface antigen) Maureen Gilmore Other [email or web address] Other 04-28-2020 influenza virus vaccine, unspecified formulation [facility] 03-06-2016 influenza virus vaccine, split virus (incl. purified surface antigen) Maureen Gilmore Other [email or web address] Other 03-06-2016 influenza virus vaccine, unspecified formulation [facility] Payers Date Payer Category Payer Unknown [id number] 2024 Private Health Insurance [id number] 2024 Self-pay [id number] 2023 Managed Care (Private) [facility] [id number] 2022 Medicare 2022 Medicare [id number] 2022 Private Health Insurance [id number]. [id number] 2022 Private Health Insurance [id number] 2014 Unknown [id number] 1968 Unknown [id number] 2.16.840.1.293480.3.579.2. 647 1968 Unknown [id number] 2.16.840.1.367447.3.579.2. 59 1968 Unknown [id number] 2.16.840.1.728229.3.579.2. 59 1968 Unknown [id number] 2.16.840.1.199920.3.579.2. 593 1968 Unknown [id number] 2.16.840.1.862251.3.579.2. 593 1968 Unknown [id number] 2.16.840.1.531603.3.579.2. 593 1968 Unknown [id number] 2.16.840.1.060122.3.579.2. 125 1968 Unknown [id number] 2.16.840.1.096232.3.579.2. 1259 1968 Unknown [id number] 2.16.840.1.967543.3.579.2. 1259 1968 Unknown [id number] 2.16.840.1.513736.3.579.2. 9 1968 Unknown [id number] 2.16.840.1.002406.3.579.2. 1258 1968 Unknown [id number] 2.16.840.1.139001.3.579.2. 1258 1968 Unknown [id number] 2.16.840.1.298952.3.579.2. 175 1968 Unknown [id number] 2.16.840.1.300877.3.579.2. 175 1968 Unknown [id number] 2.16.840.1.094329.3.579.2. 196 1968 Unknown [id number] 2.16.840.1.770531.3.579.2. 1245 1968 Unknown [id number] 2.16.840.1.360869.3.579.2. 1245 1968 Unknown [id number] 2.16.840.1.828479.3.579.2. 1243 1968 Unknown [id number] 2.16.840.1.427099.3.579.2. 1243 1968 Unknown [id number] 2.16.840.1.881176.3.579.2. 1243 1968 Unknown [id number] 2.16.840.1.602199.3.579.2. 1243 1968 Unknown [id number] 2.16.840.1.509959.3.579.2. 93 1968 Unknown [id number] 2.16.840.1.731706.3.579.2. 727 1959 Private Health Insurance [id number] Private Health Insurance [id number] Unknown [id number] 2.16.840.1.811488.3.579.2. 531 Unknown [id number] 2.16.840.1.338700.3.579.2. 531 Unknown [id number] 2.16.840.1.067216.3.579.2. 531 Unknown [id number] 2.16.840.1.696544.3.579.2. 531 Unknown [id number] 2.16.840.1.835234.3.579.2. 531 Unknown [id number] 2.16.840.1.650296.3.579.2. 531 Unknown [id number] 2.16.840.1.221531.3.579.2. 531 Social History Date Type Detail Facility Start: 11-23-2021 Tobacco smoking status Heavy t obacco smoker (finding) [facility] Tobacco smoking status Never [facility] [place] Start: 05-27-2023 End: 10-22-2023 Sex Assigned At Female [facility] Start: 05-27-2023 End: 03-02-2025 Tobacco smoking status NHIS Occasional tobacco smoker [facility] Work Phone: Start: 06-26-2012 End: 06-26-2023 History of tobacco use Cigarette Smoker [facility] Work Phone: Start: 05-27-2023 End: 10-22-2023 Cigarettes smoked current (pack per day) - Reported 0.5 [facility] Start: 05-27-2023 End: 10-22-2023 Tobacco use and exposure Smokeless tobacco non-user [facility] Work Phone: Start: 05-27-2023 Alcohol intake Not Asked [facility] Work Phone: Start: 05-27-2023 Alcohol Comment rarely [facility] Work Phone: Start: 1970 Sex Assigned At Not on file [facility] Work Phone: Start: 05-17-2023 End: 05-07-2024 Exposure to SARS-CoV-2 (event) Not sure [facility] Start: 07-01-2023 End: 06-09-2024 Alcohol intake Current drinker of alcohol (finding) [facility] Work Phone: Start: 06-26-2012 End: 06-26-2023 Tobacco smoking status NHIS Smoker (finding) [facility] Start: 1970 Sex Assigned At Female F [facility] Start: 10-22-2023 End: 04-07-2024 Tobacco smoking status NHIS Ex-smoker [facility] Work Phone: Start: 04-07-2024 Alcohol Comment rarely, 1x a , month or less [facility] Work Phone: Start: 08-14-2018 End: 04-08-2024 Sex Female (finding) [facility] Has the [employer], [employer], or P[employer] threatened to shut off services in your home in past 12Mo No [employer] (I/We) worried alma frazier (my/our) food would run out before (I/we) got money to buy more. Never true [employer] Start: 02-06-2018 End: 06-08-2024 Tobacco Comment started at age 13 for 4 yrs, quit then started back in 2014 [employer] Start: 06-08-2024 Alcohol Comment socially [facility] Start: 05-26-2014 Tobacco smoking stat us MOIS Smokes tobacco daily [employer] Start: 01-02-2024 Alcoholic beverage intake Current non-drinker of alcohol (finding) [employer] Sexual Orientation [facility] Start: 10-22-2023 Alcoholic beverage intake Ex-drinker (finding) [facility] Start: 01-27-2025 End: 02-23-2025 [facility] Work Phone: Medical Equipment Procedure Code Equipment Code Equipment Origin al Text Equipment Identifier Dates Floseal Hemostat Matrx 5ml Needle Free [id number] Start: 02-09-2018 Clip Braided 360 Catheter Resolution Ultra - [id number] FDA Start: 01-07-2024 Comment on above: Description: Clip pl aced at GJ junction Clip Hemostasis Mantis 2.8mm X 235cm - [id number], [id number] FDA Start: 01-07-2024 Comment on above: Description: Clip pl aced at GJ junction Allograft [place] 50x25 Mm 24 Cc Bioadapt - [id number] Start: 06-08-2024 Set Screw 5.5-6. 0 - [id number] Start: 06-08-2024 Screw Poly Solid 6.5x40 - [id number] Start: 06-08-2024 Screw Poly Solid 6.5x45 - [id number] Start: 06-08-2024 Dhaval Ti Prebent 5.5x35 - [id number] Start: 06-08-2024 [id number] FDA Start: 01-31-2025 Goals Date Patient Goal Desired Activity /State Functional Status Date Assessment Result Facility 02-18-2025 Functional status Patient is Pro gressing Toward Baseline [facility] Work Phone: 11-23-2021 Functional Status N/A [facility] Mental Status Date Assessment Result Facility 02-18-2025 Cognitive function Patient is Pr ogressing Toward Baseline [facility] Work Phone: Clinical Notes 10-11-2020 to 01-25-2025 Note Date & Type Note Facility 01-25-2025 Evaluation note Diagnosis Onset Date Resolution Acute blood loss anemia acute S eptember 2024 5:04pm Anemia acute January 25, 2025 5:04pm Chronic pulmonary embolism without acute cor pulmonale acute Daniella 2nd, 2 025 5:04pm Closed right ankle fracture acute January 25, 2 025 5:04pm DVT (deep venous thrombosis) acute January 25, 2 025 5:04pm GI bleed acute January 25, 2025 5:04pm History of Linsey-en-Y gastric bypass acute January 25, 2 025 5:04pm Impaired mobility and ADLs acute January 25, 2 025 5:04pm Left foot pain acute January 25, 2025 5:04pm LV (left ventricular) mural thrombus acute January 25, 025 5:04pm Takotsubo cardiomyopathy acute January 25, 2025 5:04pm [facility] Work Phone: 1(934) 302-851909-02-2025 Evaluation note* Diagnosis Onset Date Resolution Status [...] of Linsey-en-Y gastric bypass acute January 25, 025 5:04pm Impaired mobility and ADLs acute January 25, 2025 5:04pm Left foot pain acute January 25, 2025 5:04pm LV (left ventricular) mural thrombus acute January 25, 025 5:04pm Takotsubo cardiomyopathy acute January 25, 2025 5:04pm Catheter-associated urinary tract infection acute February 18, 2025 1:27am Chronic pulmonary embolism without acute cor pulmonale acute Jan 1:27am DVT (deep venous thrombosis) acute February 18, 2025 1:27am History of Linsey-en-Y gastric bypass acute February 18, 2025 1:27am LV (left ventricular) mural thrombus acute February 18, 2025 1:27am Sepsis acute January 1:27am Takotsubo cardiomyopathy acute February 18, 2025 1:27am UTI (urinary tract infection) acute February 18, 2025 1:27am [facility] Work Phone: 1(861) 927-189309-02-2025 Evaluation note* Diagnosis Onset Date Resolution Status [...] of Linsey-en-Y gastric bypass acute January 25, 025 5:04pm Impaired mobility and ADLs acute January 25, 2025 5:04pm Left foot pain acute January 25, 2025 5:04pm LV (left ventricular) mural thrombus acute January 25 5:04pm Takotsubo cardiomyopathy acute January 25, 2025 5:04pm Catheter-associated urinary tract infection acute February 18, 2025 1:27am Chronic pulmonary embolism without acute cor pulmonale acute Jan 1:27am DVT (deep venous thrombosis) acute February 18, 2025 1:27am History of Linsey-en-Y gastric bypass acute February 18, 2025 1:27am Infection due to ESBL-produc ing Escherichia coli acute February 18, 2025 1:27am LV (left ventricular) mural thrombus acute February 18, 2025 1:27am Sepsis acute January 1:27am Takotsubo cardiomyopathy acute February 18, 2025 1:27am UTI (urinary tract infection) acute February 18, 2025 1:27am [facility] Work Phone: 1(293) 353-415505-28-2025 Evaluation note* Diagnosis Onset Date Resolution Status Admit Date Anxiety acute October 20, 2024 3:30pm Chronic pain syndrome acute October 20, 2024 3:30pm [facility] Work Phone: 1([phone]) 722-202903-04-2025 Evaluation note* Diagnosis Onset Date Resolution Status Admit Date Anxiety acute July 27 4:03pm Chronic pain syndrome acute Jul 4:03pm [facility] Work Phone: 1([phone]) 233-423903-04-2025 Evaluation note* Diagnosis Onset Date Resolution Status Admit Date Anxiety acute July 27 4:03pm Chronic pain syndrome acute Jul 4:03pm Anxiety acute October 20, 2024 3:30pm Chronic pain syndrome acute October 20, 2024 3:30pm [facility] Work Phone: 1(502) 783-425601-17-2025 History of Present illness Narrative* Genevieve Jones [...] Tawana Vidal MD, MD * Donita Cutler PTA - 06/11/2024 9:08 AM EST [facility] INPATIENT PHYSICAL THERAPY DAILY NOTE [facility] 7K - 7K-18/018-A Discharge Recommendations: Continue to assess pending progress and Subacute/Correction Facility Equipment Recommendations: No Time In: 0905 Time Out: 09 Timed Code Treatment Minutes: 24 Minutes Minutes: [...] Level of Assist for Transfers: Independent Active Rice Drier: No Additional Comments: Patient ambulated household distances [...] Exercise: None pt declined Functional Outcome Measures: [facility] (6 CLICK) BASIC MOBILITY AM-[facility] Inpatient Mobility Raw Score : 14 AM-[facility] Inpatient T-Scale Score : 38.1 Modified Bath: Current Functional Status: Not Applicable ASSESSMENT: Assessment: [...] appropriate AD times 20 feet with CGA. [facility] Goals Time Frame for [facility] Goals : n/a due to short length of stay Following session, patient left in safe position with all fall risk precautions in place. * Neli Smith OTA - 06/11/2024 8:46 AM EST [facility] Occupational Therapy Daily Note Discharge Recommendations: 24 hour assistance or supervision, Home with assist as needed, Home withassistance of aide, and Home with Home Health OT-Recommend SNF, Pt. declines Equipment Recommendations: No Time In: 08 Time Out: 0846 Timed Code Treatment Minutes: 29 Minutes Minutes: 29 Date: 06/11/2024 Patient Name: Candy Booth, Gender: female Room: [address] [place] [address] : 1970 (53 y.o.) Referring Practitioner: David [...] injury in the past year?: Yes Active Rice Drier: No Patient's Rice Drier Info: Spouse completes Additional Comments: Patient ambulated [...] increase indep withinhome environment. Additional Goals?: No [employer] Goals Time Frame for [facility] Goals : No LTGs d/t short estimated [...] ml Net -320 ml URINARY CATHETER OUTPUT (Campoverde): DRAIN/TUBE OUTPUT: Closed/Suction Drain Inferior;Midline Back-Output (ml): [...] Cont metoprolol. Cont Antidepressants. Postoperative care PT/OT Taawna Vidal MD, * Kat Castillo, PT - 06/10/2024 2:09 PM EST [facility] INPATIENT PHYSICAL THERAPY DAILY NOTE [facility] 7K - 7K-18/018-A Discharge Recommendations: Subacute/Correction Facility Equipment Recommendations: No Time In: 0930 [...] Level of Assist for Transfers: Independent Active Rice Drier: No Additional Comments: Patient ambulated household distances [...] independence with functional mobility. Functional Outcome Measures: [facility] (6 CLICK) BASIC MOBILITY AM-[facility] Inpatient Mobility Raw Score : 14 AM-[facility] Inpatient T-Scale Score : 38.1 Modified Bath: Current Functional Status: Not Applicable ASSESSMENT: Assessment: [...] appropriate AD times 20 feet with CGA. [facility] Goals Time Frame for [facility] Goals : n/a due to short length of stay Following session, patient left in safe position with all fall risk precautions in place. * Neli Smith OTA - 06/10/2024 11:56 AM EST [facility] 7 Occupational Therapy Daily Note Discharge Recommendations: Continue to assess pending progress and Subacute/fpc facility Pt. Declining would recommend 24 hour care and Home Health with OT if returning home. Equipment Recommendations: No Time In: 1129 Time Out: 1156 Timed Code Treatment Minutes: 27 Minutes Minutes: 27 Date: 06/10/2024 Patient Name: Candy J Booth, Gender: female Room: [facility]18/018-A : 1970 (53 y.o.) Referring Practitioner: David [...] injury in the past year?: Yes Active Rice Drier: No Patient's Rice Drier Info: Spouse completes Additional Comments: Patient ambulated household distances with rollator walker with h/o mulitple falls. SUBJECTIVE: RN okayed OT session. Pt. In room and agreeable to participate with some encouragement.Pt. Reports fatigue and requesting to return to the chair. PAIN: /10: low back Vitals: Vitals not [...] ,and with increased time for completion. to [facility] . IADL: Not Tested BALANCE: Sitting Balance: [...] Inpatient Daily Activity Raw Score: 16 Modified Bath: Current Functional Status: Not Applicable ASSESSMENT: Activity [...] increase indep withinhome environment. Additional Goals?: No [facility] Goals Time Frame for [facility] Goals : No LTGs d/t short estimated length of stay. Following session, patient left in safe position with all fall risk precautions in place. * Genevieve Jones RN - 06/10/2024 10:30 AM EST Phone call made to [employer] rep as pt wound vac not working [...] ml Net -1420 ml URINARY CATHETER OUTPUT (Cmapoverde): DRAIN/TUBE OUTPUT: Closed/Suction Drain Inferior;Midline Back-Output (ml): [...] Castillo, PT - 06/09/2024 3:54 PM EST [facility] INPATIENT PHYSICAL THERAPY EVALUATION [facility] 7K - 7K-18/018-A Discharge Recommendations: Subacute/Correction Facility Equipment Recommendations: No Time In: 1500 [...] injury in the past year?: Yes Active Rice Drier: No Additional Comments: Patient ambulated household distances [...] Not Tested Exercise: None Functional Outcome Measures: [facility] (6 CLICK) BASIC MOBILITY AM-[facility] Inpatient Mobility Raw Score : 8 AM-[facility] Inpatient T-Scale Score : 28.52 Modified Bath: Premorbid Functional Status: Not Applicable Current Functional [...] and gait to be assessed when appropriate. [facility] Goals Time Frame for [employer] Goals : n/a due to short length of stay Following session, patient left in safe position with all fall risk precautions in place. * Ariana Bravo OT - 06/09/2024 1:47 PM EST [facility] INPATIENT OCCUPATIONAL THERAPY [facility] 7K EVALUATION Discharge Recommendations: Continue to assess pending progress, Subacute/Correction Facility Equipment Recommendations: No Time In: 1041 [...] Pt was agreeable to OT session. Pain: 10/10: Back Vitals: Vitals not assessed per clinical [...] wheelchair and able to pivot transfer Active Rice Drier: No Patient's Rice Drier Info: Spouse completes VISION:WFL HEARING: WFL COGNITION: [...] to faint and has ringing in ears. Security Patrol Officer sat pt on EOB and RN notified. Vitals showing tachycardia with HR 148. Activity Tolerance: Patient tolerance of treatment: Good treatment tolerance Functional Outcome Measures: AM-PAC Inpatient Daily Activity Raw Score: 16 Modified Bath: Premorbid Functional Status: Not Applicable Current Functional [...] increase indep withinhome environment. Additional Goals?: No [facility] Goals Time Frame for [employer] Goals : No LTGs d/t short estimated [...] ml Net 249.43 ml URINARY CATHETER OUTPUT (Campoverde): DRAIN/TUBE OUTPUT: Closed/Suction Drain Inferior;Midline Back-Output (ml): [...] 06/08/2024 7:14 PM EST Pt admitted to [facility] via bed from PACU . Complaints: [...] AM Explained patients right to have family, teleservices representative or physician notified of their admission. Patient has Declined for physician to be notified. Patient has Declined for family/teleservices representative to be notified. * Thi Jones RN - 06/08/2024 5:30 PM EST 1740 Pt arrives to pacu with oral airway. Pt following commands, minimally responsive to stimuli. Respirations easy and unlabored. 174 Pt coughing, oral airway removed. Pt placed on 2L NC. 174 Pt waking up more, grimacing and yelling in pain. Rating pain a 9/10. Medicated per order. 175 Pt continues to complain of pain. Medicated [...] bedside. Pt transported to in stable condition. NDO * Siri Noble RN - 06/08/2024 12:41 PM EST Pt admitted to [facility] room 11 and oriented to unit. SCD sleeves applied. Nares swabbed. Pt verbalized permission for first name, last initial and physicians name on white board. SDS board and discharge criteria explained, pt and family verbalized understanding. Pt denies thoughts of harming self or others. Call light in reach. Family at the bedside. Trev [phone] * Conchita Sawyer RN - 06/04/2024 2:00 [...] call us back at your earliest convenience; [phone] documented in [facility] encounterBon [facility] Discharge instructions* Discharge Instructions* Genevieve [...] an appointment, please contactthe office) - ext [phone] If any concerning symptoms, such as calf pain/swelling, new numbness/tingling or pain please the contact the office. If concerning symptoms including chest pain or difficulty breathing, go to the Emergency Department. documented in this encounterBon [facility]12-13-2024 History of Present illness Narrative* Yossi Hunter MD - 05/07/2024 9:15 AM EST .CARDIOLOGY OFFICE VISIT CHIEF COMPLAINT Chief Complaint Patient presents with Pre-op Clearance POC to have lumbar surgery on pending with Dr. Jovana Guardado in [facility] HISTORY OF PRESENT ILLNESS Candy Booth is a 53 y.o. year old female patient with a history of a mildly dilated ascending aorta which measured 3.9 cm on the recent CTA in June 2023 that showed mild nonobstructive disease in the coronaries. She had recent ICU admission in [place] for GI bleeding December 2023 and had [...] person, place and time. documented in [facility]University [facility] Work Phone: 1(797) 908-276112-13-2024 Instructions* Patient Instructions* Paulo Bucio LPN - [...] time of your visit. documented in this encounterUniversity [facility]als [facility] Work Phone: 1(391) 930-974611-14-2024 Evaluation note* Diagnosis Onset Date Resolution Status Admit Date Anxiety acute April 08, 2024 2:57pm Chronic pain syndrome acute Mar 2:57pm Lumbar degenerative disc disease acute April 08, 2 024 2:57pm Peripheral neuropathic pain acute April 08, 2024 2:57pm Preoperative examination acute April 08, 2024 2:57pm Dysuria acute April 29, 2024 3:15pm Hyponatremia acute April 3:15pm [facility] Work Phone: 1([phone]) 557-619811-13-2024 History of Present illness Narrative* Yossi Hunter MD - 04/07/2024 8:30 AM EST .CARDIOLOGY OFFICE VISIT CHIEF COMPLAINT Chief Complaint Patient presents with Pre-op Clearance POC to have lumbar surgery on 04/21/[address] Jovana Guardado in [facility] HISTORY OF PRESENT ILLNESS Candy Booth is a 53 y.o. year old female patient with a history of a mildly dilated ascending aorta which measured 3.9 cm on the recent CTA in June 2023 that showed mild nonobstructive disease in the coronaries. She had recent ICU admission in [place] for GI bleeding December 2023 and had [...] Smoker Heart valve disease Dilation of aorta ([facility]) Pre-op examination Other Visit Diagnoses Pre-operative clearance [...] person, place and time. documented in this encounterUniversity [facility]als [facility] Work Phone: 1(830) 323-597211-13-2024 Instructions* Patient Instructions* Paulo Bucio LPN - [...] time of your visit. documented in this encounterUniversity [facility] Work Phone: 1(779) 272-689811-05-2024 Evaluation note* Diagnosis Onset Date Resolution Status [...] 29, 2024 3:15pm Hyponatremia acute April 3:15pm [facility] Work Phone: 1([phone]) 623-170808-27-2024 Evaluation note* Diagnosis Onset Date Resolution Status [...] 3:27pm Chronic pain syndrome acute Mar 3:27pm [facility] Work Phone: 1([phone]) 854-253408-12-2024 Hospital course Narrative* Ana Malone RN - 01/05/2024 7:15 PM EDT Discharge order noted. AVS printed and reviewed with patient. Reviewed Medications and scripts thatwill be sent home. Answered patient questions at this time. All belongings were checked and sent with patient. Patient and spouse Trev expressed understanding of all teachings and no further questions at this time. documented in this encounterBON LIND[place] [address]-[place]24 Hospital Discharge instructions* Discharge Instr - JOCY* [...] Contact Information Primary Emergency Contact: [facility] [employer] Relation: Spouse Secondary Emergency Contact: Amy [...] IR EMBOLIZATION HEMORRHAGE 01/01/2024 Nasir Martinez MD [facility] SPECIAL PROCEDURES LAPAROSCOPY Small bowel obstruction due to adhesions NM COLONOSCOPY FLX DX W/COLLJ SPEC WHEN PFRMD N/A 10/20/2017 COLONOSCOPY performed by Juancarlos Maldonado MD at [facility] Endoscopy NM EGD TRANSORAL CONTROL BLEEDING ANY METHOD Left 10/19/2017 EGD CONTROL HEMORRHAGE performed by Juancarlos Maldonado MD at [facility] Endoscopy NM LAMNOTMY INCL W/DCMPRSN NRV ROOT 1 INTRSPC LUMBR N/A 02/09/2018 L4-5 DISKECTOMY LEFT performed by Ronal Matos MD at [facility] OR UPPER GASTROINTESTINAL ENDOSCOPY UPPER GASTROINTESTINAL ENDOSCOPY N/A 01/01/2024 ESOPHAGOGASTRODUODENOSCOPY CONTROL HEMORRHAGE performed by Sandy Rodgers MD at [facility] OR UPPER GASTROINTESTINAL ENDOSCOPY 01/01/2024 ESOPHAGOGASTRODUODENOSCOPY SCLEROTHERAPY performed by Sandy Rodgers MD at [facility] OR Immunization History: Immunization History Administered Date(s) Administered COVID-19, PFIZER PURPLE top, DILUTE for use, (age 12 y+), 30mcg/0.3mL 08/02/2020, 08/22/2020, 05/13/2021 Active Problems: Patient Active Problem List Diagnosis Code Hypovolemic shock ([facility]) R57.1 Acute upper GI bleed K92.2 Lactic acidosis E87.20 Hyponatremia E87.1 Orthostatic hypotension I95.1 Hypotension due to blood loss I95.89, R58 AAA (abdominal aortic aneurysm) ([facility]) I71.40 Complex regional pain syndrome [id number] Peptic ulcer disease K27.9 Acute blood loss anemia D62 GI bleed K92.2 MVP (mitral valve prolapse) I34.1 Iron deficiency E61.1 Troponin level elevated R79.89 Hypocalcemia E83.51 Hypokalemia E87.6 Hypoalbuminemia due to protein-calorie malnutrition ([facility]) E88.09, E46 Gastric ulcer without [...] Assisted Dressing Assisted Toileting Assisted Feeding Independent Surgeon Chief Independent Med Delivery whole Wound Care Documentation [...] are sent with patient): None, Cell phone, student financial aid manager, shoes pants shirt RN SIGNATURE: CASE MANAGEMENT/SOCIAL WORK SECTION Inpatient Status Date: Readmission Risk Assessment Score: Readmission Risk Risk of Unplanned Readmission: 15 Discharging to Facility/ Agency Name: Address: Phone: Fax: Dialysis Facility (if applicable) Name: Address: Dialysis Schedule: Phone: Fax: Ux Developer/Hunting Guide signature: {Esignature:[id number]} PHYSICIAN SECTION Prognosis: Fair Condition at Discharge: [...] mEq (POTASSIUM EXTENDED-RELEASE DISPERSIBLE TABLET - ORAL) (Irish) * Hypotension (Irish) * GI Bleed (Irish) documented in this encounterBON DAYTON [facility] History of Present illness Narrative* Yael Santamaria, OT - 01/05/2024 12:15 PM EDT Facility/Department: [facility] 2- STEPDOWN Occupational Therapy Initial Evaluation Patient [...] Ambulation Assistance: Independent Transfer Assistance: Independent Active Rice Drier: No Patient's Rice Drier Info: Spouse completes Occupation: On disability Leisure [...] care and washing face standing sinkside at [facility] with increased time to complete UE Bathing: Stand by assistance LE Bathing: Contact guard assistance UE Dressing: Stand by assistance LE Dressing: Contact guard assistance LE Dressing Skilled Clinical Factors: Pt sat on toilet to thread undergarments at [facility] for safety; Pt required increased time to thread socks over toes seated on toilet. Pt able to complete clothing mgmt over hips at [facility] Toileting: Contact guard assistance Toileting Skilled Clinical Factors: Pt required [facility] for clothing mgmt standing at toilet; Pt sat ontoilet and completed hygiene seated at [facility] for safety; Pt utilized GB to complete transfer on/off toilet for support; Balance Balance Sitting: With support (CGA seated on toilet during dynamic tasks, SBA unsupported on recliner ~12 minutes cumulatively) Standing: With support (toileting tasks, sinkside ADLs, using RW for support, able to complete withhand release from RW at [facility] grossly 6-7 minutes) Transfers/Mobility [...] Inpatient CMS 0-100% Score: 38.32 ADL Inpatient [facility] G-Code Modifier : CJ Minutes OT Individual [...] from the original note were not included. [facility] Office: [phone] Carter Melendez DO, Anuj Lim DO, Isela [...] Leung MD, Bryant Carrillo MD, Christina Mackey, HAND TRUCKER, Sherri Nunes, HAND TRUCKER, Cory Andrade, HAND TRUCKER, Debbie Solis, [facility],Radha Augustin, HAND TRUCKER, Alyssa Judge, HAND TRUCKER, Kristen Daly, HAND TRUCKER, Jennifer Francis, HAND TRUCKER, Neli Bolanos, PA-C, Shruthi Carlos, PA-C, Jayshree Oswald, HAND TRUCKER, Oralia Fisher, HAND TRUCKER, Rachel Allison, HAND TRUCKER, Kerry Rodas,HAND TRUCKER, Rashmi Torres, E M ASSEMBLER, Jaky Green, HAND TRUCKER, Damairs Chauhan, HAND TRUCKER, Carol Gimenez, HAND TRUCKER [facility] IN-PATIENT SERVICE [facility] Progress Note 01/05/2024 7:56 AM Name: Candy Booth Acct: [id number] Room: Day: 6 Admit Date: 12/30/2023 5:58 [...] hysterectomy who presented as a transfer from [facility] with complaints of dark black stool. Patient was treated with PPI, given 5 units PRBC and transferred to [facility] for further GI workup and management. [...] , PHART , PH , POCPCO2 , WTW2DMZ , PCO2 , POCPO2 , PO2ART , PO2 , POCHCO3 , YCB2OUP , HCO3 , NBEA , PBEA , BEART , BE , THGBART , THB , NVK7BCG , [id number] , [id number] , O2SAT , FIO2 No results found [...] Patient's name: Candy Booth Patient's account/billing number: [id number] Patient's Date of : 1970 Age: 53 [...] use at the time presented initially to [facility] with syncope and acute rectal bleeding. Patient was treated with IV PPI, given 5 units PRBCs, was transferred to [facility] for further GI workup and management of GI bleed. Per patient, she had multiple different PPI, she only can tolerate Dexlansoprazole, which she used this medication intermittently when she has flare of GI bleeding and abdominal pain. Patient does not remember who and what hospital performed at the surgery of gastric Ilnsey-en-Y bypass. GI team was co nsulted for [...] total 2 unit of blood here at [facility]. Patient received a normal saline bolus, approximately [...] treatable arterial lesion at this time. Rt OENOLOGIST sheath left in place. Current Vitals: BP [...] 10/18/2017 AAA (abdominal aortic aneurysm) ([facility]) Complex regional pain syndrome Peptic [...] resident Department of Internal Medicine/ Critical care [facility], [facility]) 01/04/2024, 2:35 PM * Tl Salazar APRN - HAND TRUCKER - 01/04/2024 10:37 AM EDT [facility]'s Gastroenterology Progress Note Candy Booth [...] results for input(s): TIBC , FERRITIN , [id number] , FOLATE , OCCULTBLD in the last [...] contact me with any questions or concerns. [facility], MAC - [facility] [phone] 01/04/2024 10:37 AM Estimated time of 20 [...] by Ricki De La Cruz MD * KirstinTuyet, DO - 01/04/2024 8:14 AM EDT Images from the original note were not included. [facility] BARIATRICS SURGERY CONSULT NOTE PATIENT: Candy Booth [...] abdominal pain. Patient was a transfer from [facility] 4 days ago after an acute dark [...] unit of blood so far here at [facility]. Pt seen and examined this morning at [...] IR EMBOLIZATION HEMORRHAGE 01/01/2024 Nasir Martinez MD [facility] SPECIAL PROCEDURES LAPAROSCOPY Small bowel obstruction due to adhesions NM COLONOSCOPY FLX DX W/COLLJ SPEC WHEN PFRMD N/A 10/20/2017 COLONOSCOPY performed by Juancarlos Maldonado MD at [facility] Endoscopy NM EGD TRANSORAL CONTROL BLEEDING ANY METHOD Left 10/19/2017 EGD CONTROL HEMORRHAGE performed by Juancarlos Maldonado MD at [facility] Endoscopy NM LAMNOTMY INCL W/DCMPRSN NRV ROOT 1 INTRSPC LUMBR N/A 02/09/2018 L4-5 DISKECTOMY LEFT performed by Ronal Matos MD at [facility] OR UPPER GASTROINTESTINAL ENDOSCOPY UPPER GASTROINTESTINAL ENDOSCOPY N/A 01/01/2024 ESOPHAGOGASTRODUODENOSCOPY CONTROL HEMORRHAGE performed by Sandy Rodgers MD at [facility] OR UPPER GASTROINTESTINAL ENDOSCOPY 01/01/2024 ESOPHAGOGASTRODUODENOSCOPY SCLEROTHERAPY performed by Sandy Rodgers MD at [facility] OR ALLERGIES: Nsaids, Milk (cow), Acetaminophen-codeine, and [...] by mouth at bedtime Cholecalciferol (VITAMIN D3) 46466 units CAPS, Take by mouth Twice a [...] GLUCOSE 105* -- 95 97 Recent Labs 01/01/241932 AST 42* ALT 13 ALKPHOS 124* BILITOT [...] abdominal pain. Patient was a transfer from [facility] 4 days ago after an acute dark [...] unit of blood so far here at [place]. OBJECTIVE: VITAL SIGNS: Patient Vitals for the [...] 9.4 Last 3 Blood Glucose: Recent Labs 01/01/24193201/02/24 0508 01/03/24 0601/04/24 0457 GLUCOSE 104* 105* 95 97 PT/INR: Lab Results Component Value Date/Time PROTIME 12.3 01/01/2024 07:13 PM INR 0.9 01/01/2024 07:13 PM PTT: Lab Results Component Value Date/Time APTT 24.6 01/01/2024 07:13 PM APTT 26.6 02/06/2018 08:24 AM Basic Metabolic Profile: Recent Labs 01/02/2450701/03/24 0127 01/03/2459901/04/24 0457 NA 141 -- 140 138 K 3.0* 3.1* 3.4* 3.1* CL 110* -- 106 104 CO2 - BUN 8 -- 3* 3* CREATININE 0.3* [...] ulcer without hemorrhage or perforation Hypovolemic shock ([facility]) 10/18/2017 Acute upper GI bleed 10/18/2017 Lactic acidosis 10/18/2017 Hyponatremia 10/18/2017 Orthostatic hypotension 10/18/2017 Hypotension due to blood loss 10/18/2017 AAA (abdominal aortic aneurysm) ([facility]) Complex regional pain syndrome Peptic ulcer disease 09/23/2017 PLAN: WEAN PER PROTOCOL: [] No [] Yes [x] N/A ICU PROPHYLAXIS: Stress ulcer: [x] PPI Agent [] [id number] [] Sucralfate [] Other [] None VTE: [...] standpoint Livia Manzo MD Critical Care, PGY-1 [facility] 01/04/24 7:15 AM Attending Physician Statement [...] this chart was generated using voice recognition Agendiaon dictation software. Although every effort was made to ensure the accuracy of this automated framing and hanging, some errors in framing and hanging may have occurred. * Tl Salazar, SENIOR SALES OPERATIONS ANALYST - HAND TRUCKER - 01/03/2024 11:49 AM EDT [facility] Gastroenterology Progress Note Candy Booth is a [...] results for input(s): TIBC , FERRITIN , XSPMBHYX75 , FOLATE , OCCULTBLD in the last 72 hours. Invalid input(s): LABIRON BMP: Recent Labs 01/01/24 0411 01/01/24 19301/02/24 0508 01/03/24 0127 01/03/24 0600 [...] contact me with any questions or concerns. [facility], MAC - [facility] [phone] 01/03/2024 11:49 AM Estimated time of 20 [...] abdominal pain. Patient was a transfer from [facility] 4 days ago after an acute dark [...] unit of blood so far here at [place]. OBJECTIVE: VITAL SIGNS: Patient Vitals for the [...] DATA: Complete Blood Count: Recent Labs 01/02/24 05001/02/24 0953 01/02/24 1953 01/03/24 0127 01/03/24 0600 [...] PROPHYLAXIS: Stress ulcer: [x] PPI Agent [] F4Qzkqa [x] Sucralfate [] Other [] None VTE: [...] standpoint Livia Manzo MD Critical Care, PGY-1 [facility], [facility] 01/03/24 11:41 AM Attending Physician Statement [...] this chart was generated using voice recognition Agendiaon dictation software. Although every effort was made to ensure the accuracy of this automated framing and hanging, some errors in framing and hanging may have occurred. * Margaret Hua, DO - 01/03/2024 7:45 AM EDT Images from the original note were not included. [facility] BARIATRICS SURGERY CONSULT NOTE PATIENT: Candy Booth [...] abdominal pain. Patient was a transfer from [facility] 4 days ago after an acute dark [...] unit of blood so far here at [place]. She feels improved and has not pain. [...] IR EMBOLIZATION HEMORRHAGE 01/01/2024 Nasir Martinez MD [facility] SPECIAL PROCEDURES LAPAROSCOPY Small bowel obstruction due to adhesions NM COLONOSCOPY FLX DX W/COLLJ SPEC WHEN PFRMD N/A 10/20/2017 COLONOSCOPY performed by Juancarlos Maldonado MD at [facility] Endoscopy NM EGD TRANSORAL CONTROL BLEEDING ANY METHOD Left 10/19/2017 EGD CONTROL HEMORRHAGE performed by Juancarlos Mladonado MD at [facility] Endoscopy NM LAMNOTMY INCL W/DCMPRSN NRV ROOT 1 INTRSPC LUMBR N/A 02/09/2018 L4-5 DISKECTOMY LEFT performed by Ronal Matos MD at [facility] OR UPPER GASTROINTESTINAL ENDOSCOPY UPPER GASTROINTESTINAL ENDOSCOPY N/A 01/01/2024 ESOPHAGOGASTRODUODENOSCOPY CONTROL HEMORRHAGE performed by Sandy Rodgers MD at [facility] OR UPPER GASTROINTESTINAL ENDOSCOPY 01/01/2024 ESOPHAGOGASTRODUODENOSCOPY SCLEROTHERAPY performed by Sandy Rodgers MD at [facility] OR ALLERGIES: Nsaids, Milk (cow), Acetaminophen-codeine, and [...] by mouth at bedtime Cholecalciferol (VITAMIN D3) 12375 units CAPS, Take by mouth Twice a [...] this interval not displayed. Recent Labs 01/01/24193201/02/24 05001/03/2412601/03/24 06 NA 137 141 -- 140 K [...] Progress Note PATIENT: CANDY BOOTH CSN #: [id number] : 1970 ADMIT DATE: 12/30/2023 5:58 PM DISCH DATE: RESPONDING PROVIDER #: Christopher Morataya MD QUERY TEXT: Patient admitted with GI bleed. Noted to have teradata solution architect assessment with malnutrition diagnosis in Nutrition Assessment [...] longer, albumin 2.8, total protein 5.0 Treatment: teradata solution architect consult, Continue Current Diet advance as tolerated, monitor PO intake, diet tolerance, weight, labs ASPEN Criteria: [email or web address]://[email or web address]/doi/full/[email or web address] 5 Thank you, Callie BAUER,RN, CDI email - [email or web address] cell- [phone] office hours M--6A-2P Options provided: -- Protein [...] back tomorrow, 01/02 Treatment performed by Student TOY STUFFER under the supervision of co-signing TOY STUFFER who agrees with all treatment and documentation. Zeyad Ashley, TOY STUFFER * Mayuri Kilgore, RN - 01/02/2024 3:59 PM EDT 1400: Security Patrol Officer has been caring for patient all shift since 0700, @ 1400 patient suddenly became untrusting of sheet writer. Patient is unable to answer orientation questions at this time. Provided notified. 1500: Orders placed, see MAR. 1533: Medication administered via Charge Nurse. Patient stating that sheet writer is not allowed to help her. Patient then called chargemaster analyst names. 1550: Security Patrol Officer assisting with IV beeping, patient stated that sheet writer needed to give back the patient daughter, and stop playing on the boats. Security Patrol Officer attempted to re-orient unsuccessfully. Patient demanded that sheet writer leave her house. She is refusing to allow sheet writer to provide medications/care at thistime. restaurant line server aware. 1700: patient continues to refuse all care. Security Patrol Officer attempted to reorient, patient demands sheet writer leave the room and not do anything. 1745: at bedside. Security Patrol Officer attempted to update, patient spouse began arguing with sheet writer thatpatient is withdrawing from pain medications. Security Patrol Officer attempted to explain that patient has had opioid medications today however he spoke over sheet writer and would not accept explanation at this time. Conversation terminated due to escalating. 1800: Security Patrol Officer requested another RN to assist due [...] loss Fluid Accumulation: No significant fluid accumulation Wooden Tank Erector Strength: Not Performed Nutrition Assessment: Pt s/p [...] Measures: Height: 170.2 cm (5' 7.01 ) [place] Body Weight (IBW): 135 lbs (61 kg) [...] Used for Energy Requirements: Admission Energy (kcal/day): 9381-3478 kcals/day Weight Used for Protein Requirements: Admission [...] to determine Rody Soto RD, CAL[place] Contact: [phone] * Yael Santamaria OT - 01/02/2024 1:28 PM EDT Images from the original note were not included. [facility] Occupational Therapy Not Seen Note DATE: 01/02/2024 [...] Patient's name: Candy Booth Patient's account/billing number: [id number] Patient's Date of : 1970 Age: 53 y.o. Date of Admission: 12/30/2023 5:58 PM Length of stay during current admission: 3 Primary Care Physician: Maureen Gilmore MD ICU Attending Physician: Code Status: [...] Femoral [] Right Subclavian [] Left Subclavian CAMPOVERDE'S CATHETER: [] No [x] Yes (Date of [...] Date 01/02/24 0000 - 01/02/24 2359 Shift 2029-3527 5775-2133 8732-7240 24 Hour Total INTAKE I.V.(mL/kg) 3821.8(44.4) 3821.8(44.4) [...] results found for: PHART , PH , QAX1ILE , PCO2 , PO2ART , PO2 , KUT8UVY , HCO3 , BEART , BE , THGBART , THB , SLX3JIV , P1KRCJQJ , O2SAT , FIO2 Lactic Acid: No [...] 72 hours. LFTS Recent Labs 12/31/23 0046 01/01/24 0411 01/01/24 193 ALKPHOS 174* 161* 124* ALT 13 10 13 AST 47* 40* 42* BILITOT 0.4 0.3 0.8 BILIDIR 0.2 <0.2 -- AMYLASE/LIPASE/AMMONIA Recent Labs 01/01/24 193 LIPASE 18 Last 3 Blood Glucose: Recent Labs 12/31/23 0046 01/01/24 0411 01/01/24 19301/02/24 0508 GLUCOSE 89 86 104* 105* HgBA1c: No results found for: LABA1C TSH: Lab Results Component Value Date/Time TSH 6.81 12/31/2023 12:46 AM ANEMIA STUDIES Recent Labs 12/31/23 0046 12/31/23 0727 TIBC -- 213* KQNAPSAV90 271 -- FOLATE 5.4 -- Cultures during [...] MD Department of Internal Medicine/ Critical care [place], [place] 01/02/2024 8:26 AM Attending Physician Statement [...] this chart was generated using voice recognition Agendiaon dictation software. Although every effort was made to ensure the accuracy of this automated framing and hanging, some errors in framing and hanging may have occurred. * Rachel Brewer, DO - 01/02/2024 6:40 AM EDT Images from the original note were not included. [facility] BARIATRICS SURGERY PROGRESS NOTE Patient Name: Candy [...] Date 01/02/24 0000 - 01/02/24 2359 Shift 1673-5179 6551-5194 0620-5127 24 Hour Total INTAKE I.V.(mL/kg) 3821.8(44.4) 3821.8(44.4) [...] not displayed. Chem: Recent Labs 12/31/23 0046 01/01/2441001/01/24190901/01/24193201/02/24 0508 NA 135* 139 -- 137 141 [...] -- -- -- -- Recent Labs 12/31/234501/01/2441001/01/24191201/01/24 193 TSH 6.81* -- -- -- AST [...] , PHART , PH , POCPCO2 , JWJ8YUW , PCO2 , POCPO2 , PO2ART , PO2 , POCHCO3 , OIH9BPE , HCO3 , NBEA , PBEA , BEART , BE , THGBART , THB , RJW2KLI , IUVH0OJM , K6IREMVI , O2SAT , FIO2 Radiology: CTA ABDOMEN [...] General Surgery Resident, PGY-3 Associated attestation - MelitaMargaret DO - 01/02/2024 7:49 PM EDT I [...] angiogram reviewed All questions answered * Mel Castillo, MAC - SHAUNA - 01/02/2024 6:05 AM EDT [facility] aCndy Booth is a 53 y.o. female patient. [...] for: PLTFLUORE PT/INR Recent Labs 12/31/23 0046 12/31/23 0727 01/01/24 1912 PROTIME 11.8 11.9 12.3 INR 0.9 0.9 0.9 ANEMIA STUDIES Recent Labs 12/31/236 12/31/23726 IRONPERSAT -- 11* TIBC -- 213* IRON -- 24* [id number] 271 -- FOLATE 5.4 -- BMP Recent Labs 12/31/23 0046 01/01/2441001/02/24 0508 NA 135* 139 141 K 3.7 3.3* 3.0* CL 105 107 110* CO2 20 23 22 BUN 2* <1* 8 CREATININE 0.4* 0.3* 0.3* GLUCOSE 89 86 105* CALCIUM 8.5* 8.5* 7.8* MG 1.9 2.0 1.9 LFTS Recent Labs 12/31/234501/01/24410 ALKPHOS 174* 161* ALT 13 10 AST 47* 40* BILITOT 0.4 0.3 BILIDIR 0.2 <0.2 ALBUMIN 3.0* 2.8* PT/INR Recent Labs 12/31/236 12/31/2372601/01/241912 PROTIME 11.8 11.9 12.3 INR 0.9 [...] chronic pain who presented as transfer from [facility] where patient initially presented there 12/28/2019 for with syncopal episode and acute rectal bleeding. Patient had downward trend of hemoglobin and transferred to [facility] for GI bleed evaluation 1. Melena- EGD [...] of your patient. Mel Castillo APRN - HAND TRUCKER on 01/02/2024 at 6:06 AM [place] Please note that this note was generated using a voice recognition dictation software. Although every effort was made to ensure the accuracy of this automated framing and hanging, some errors in framing and hanging may have occurred. Associated attestation - Sandy [...] 01/01/2024 3:02 PM EDT Physical Therapy Facility/Department: [address] ONC/MED SURG Physical Therapy Initial Assessment [...] Assistance: Needs assistance Transfer Assistance: Independent Active Rice Drier: No Mode of Transportation: Family Occupation: On [...] AM-PAC Inpatient Mobility Raw Score : 16 AM-PAC Inpatient T-Scale Score : 40.78 Mobility Inpatient [...] from the original note were not included. [facility] Office: [phone] Carter Melendez DO, Anuj Lim DO, Isela [...] Keli Rabago MD, Clark Mcfarlane, DO, Joseph Blair DO, Ni Leung MD, Bryant Carrillo MD, Christina Mackey, HAND TRUCKER, Sherri Nunes, HAND TRUCKER, Cory Andrade, HAND TRUCKER, Debbie Solis, DNP,Radha Augustin, HAND TRUCKER, Alyssa Judge, HAND TRUCKER, Kristen Daly, HAND TRUCKER, Jennifer Francis, HAND TRUCKER, Neli Bolanos PAAaronC, Shruthi Carlos PAAaronC, Jayshree Oswald, HAND TRUCKER, Oralia Fisher, HAND TRUCKER, Rachel Allison, HAND TRUCKER, Kerry Rodas,HAND TRUCKER, Rashmi Torres, [facility], Jaky Green, HAND TRUCKER, Damaris Chauhan, HAND TRUCKER, Carol Gimenez, HAND TRUCKER [facility] IN-PATIENT SERVICE [facility] Progress Note 01/01/2024 9:21 AM Name: Candy Booth Acct: [id number] Room: [facility] Day: 2 Admit Date: [...] 2007 with history of prior GI bleed 2017 w/ anastomotic ulcer (w/ NSAID use at the time) w/ chronic pain who initially presented to [facility] on 12/28/2023 status post syncope with acute rectal bleeding. Patient treated conservatively with IV PPI with suspected GI bleed status post 5 units PRBCs and recommended for transfer for further GI workup to [facility] for the management of GI bleed. Patient does describe recent ENT infection with left cervical painful lymphadenopathy status post 10-day course of clindamycin in mid to late November. Patient states she had worsening indigestion with nausea which she attributed to the clindamycin. She describes acute diarrhea with rectal bleeding complicated by near syncope/syncope and collapse prior to presenting to [place] ED. Patient admits to prior history of [...] 2/3 AM. Patient does follow with cardiology [facility]. Was recommended for antihypertensive regimen but states that the bookkeeper receptionist did not get the prescription sent [...] Hold] pantoprazole 40 mg Oral QAM AC [Jul] [...] ondansetron, [JUL Hold]acetaminophen OR [JUL Hold] acetaminophen, [MAR Hold] ALPRAZolam, [MAR Hold] oxyCODONE OR [MAR Hold] oxyCODONE, [MAR Hold] HYDROmorphone, [MAR Hold] labetalol, [MAR Hold] [...] , PHART , PH , POCPCO2 , JOE4IJK , PCO2 , POCPO2 , PO2ART , PO2 , POCHCO3 , SHB0RKT , HCO3 , NBEA , PBEA , BEART , BE , THGBART , THB , GBN4BOC , SUKK5FIE , E2HBGHYC , O2SAT , FIO2 No results found [...] loss Fluid Accumulation: No significant fluid accumulation Wooden Tank Erector Strength: Not Performed Nutrition Assessment: Pt admit from [facility] for management of GI bleed. Seen for [...] Measures: Height: 170.2 cm (5' 7 ) [place] Body Weight (IBW): 135 lbs (61 kg) [...] Used for Energy Requirements: Current Energy (kcal/day): 3405-8555 kcal/d Weight Used for Protein Requirements: Current [...] time Kadi Slaughter MS, RDN, LDN Contact: [phone] * Suzanne Celeste MD - 12/31/2023 1:24 PM EDT Images from the original note were not included. [facility] Office: [phone] Carter Melendez DO, Anuj Lim DO, Isela [...] Leung MD, Bryant Carrillo MD, Christina Mackey, HAND TRUCKER, Sherri Nunes, HAND TRUCKER, Cory Andrade, HAND TRUCKER, Debbie Solis, IVAN,Radha Augustin, HAND TRUCKER, Alyssa Judge, HAND TRUCKER, Kristen Daly, HAND TRUCKER, Jennifre Francis, HAND TRUCKER, Neli Bolanos, PAAaronC, Shruthi Carlos PAAaronC, Jayshree Oswald, HAND TRUCKER, Johanny [facility], HAND TRUCKER, Oralia Fisher, HAND TRUCKER, Rachel Allison,HAND TRUCKER, Kerry Rodas, HAND TRUCKER, Rashmi Torres, [facility], Jaky Green, HAND TRUCKER, Damaris Chauhan, HAND TRUCKER, Carol Gimenez, HAND TRUCKER [facility] IN-PATIENT SERVICE [facility] Second Visit Note For more detailed information please refer to the progress note of the day 12/31/2023 1:24 PM Name: Candy Booth Acct: [id number] Room: [facility] Day: 1 Admit Date: 12/30/2023 5:58 PM PCP: Maureen Gilmore MD Code Status: Full Code Pt vitals were reviewed New labs were reviewed Patient was seen. She had 1 BM this am which was bloody. Hemoglobin stable. She will have EGD in am. Updated plan : GI bleed - patient to be seen by GI. Monitor h/h. S/p 5 u PRBC at [facility]. EGD today. Currently tolerating clear liquid diet. On IV protonix drip. Transfuse as needed. Acute diarrhea - stool studies pending. C diff negative. Monitor I/O's Acute blood loss anemia - s/p 5 U PRBC. She has macrocytosis. B12 borderline. H/o gastric bypass. Will start B12. Moderate mitral and aortic regurgitation - Echo reviewed. LV function wnl. She has been evaluated by [facility] cardiology and had CTA for dilated aortic [...] Monitor Chronic lumbar pain - on Opiates intermediate frame tender and Lyrica. Home doses continued. DVT prophylaxis- no chemical AC due to GI bleed. SCD's in bed Patient at low risk for EGD. Suzanne Celeste MD 12/31/2023 1:24 PM documented in this encounterB[facility]-09-20[facility] NotePROCEDURE: IR EMBOLIZATION VASCULAR ANY HEMORRHAGE [...] for a 0.035 inch wire and 5 Uzbek introducer sheath. A 5 Uzbek Bren catheter was then used to selectively catheterize the celiac artery and digital angiography was performed in AP and oblique projections. Subsequently, several different catheters were used to attempt selective catheterization of the left gastric artery, ultimately successful with a 5 Uzbek Cobra catheter. Digital angiography of the left [...] by: Nasir Martinez MD 01/02/[address] [facility]-2024 NotePROCEDURE: IR EMBOLIZATION VASCULAR ANY HEMORRHAGE 01/01/2024 [...] for a 0.035 inch wire and 5 Uzbek introducer sheath. A 5 Uzbek Bren catheter was then used to selectively catheterize the celiac artery and digital angiography was performed in AP and oblique projections. Subsequently, several different catheters were used to attempt selective catheterization of the left gastric artery, ultimately successful with a 5 Uzbek Cobra catheter. Digital angiography of the left [...] branch abnormality/other treatable lesion at this time. [facility] RIS [id number] Miscellaneous Notes* Result Encounter Note - Yossi Hunter MD - 07/15/2023 11:15 AM EST CTA shows very minimal atherosclerosis with no significant stenosis. Recommend routine follow-up and continue to current treatment. [facility] Work Phone: 1(183) 254-697602-20-2024 Nurse Note* Rosaline Vásquez RN - 07/15/2023 [...] DC home to self care with family [facility] Work Phone: 1(663) 528-340602-20-2024 Nurse Note* Rosaline Vásquez RN - 07/15/2023 [...] breathmakes her chest hurt documented in this encounterUniversity [facility] Work Phone: 1(519) 376-367302-20-2024 Nurse Note* Rosaline Vásquez RN - 07/15/2023 [...] breathmakes her chest hurt documented in this encounterUniversity [facility] Work Phone: 1(878) 625-411602-20-2024 Progress note* Result Encounter Note - Yossi Hunter MD - 07/15/2023 11:15 AM EST CTA shows very minimal atherosclerosis with no significant stenosis. Recommend routine follow-up and continue to current treatment. [employer] [facility] Work Phone: 1(477) 460-131702-20-2024 Nurse Note* Rosaline Vásquez RN - 07/15/2023 11:08 AM EST Pt. Unable to tolerate deep breathing excercises for HR control. She states that holding her breathmakes her chest hurt [facility] Work Phone: 1(995) 427-917002-12-2024 Evaluation note* Encounter Date Diagnosis Assessment Notes Treatment Notes Treatment Clinical Notes Jun, Lumbar degenerative disc disease (ICD-10 - M51.36) Jun, Medication management (ICD-10 - Z79.899) [email or web address] Other 02-06-2024 History of Present illness Narrative* [...] person, place and time. documented in this encounterUniversity [facility] Work Phone: 1(610) 543-182602-06-2024 Instructions* Patient Instructions* Paulo Bucio LPN - 07/01/2023 2:[address] Angio Stop carvedilol Start Metoprolol XL 25 mg BID 3 month visit documented in this encounterUnGerman [facility] Work Phone: 1(801) 780-768301-25-2024 Evaluation note* Encounter Date Diagnosis Assessment Notes Treatment Notes Treatment Clinical Notes May, Lumbar degenerative disc disease (ICD-10 - M51.36) OARRS reviewed Medications refilled Refer to Dr. Gonzalez per patient's request. May, Anxiety disorder, unspecified (ICD-10 - F41.9) Medications refilled. [email or web address] Other 01-08-2024 Evaluation note* Encounter Date Diagnosis Assessment Notes Treatment Notes Treatment Clinical Notes May, Lumbar degenerative disc disease (ICD-10 - M51.36) May, Anxiety disorder, unspecified (ICD-10 - F41.9) [email or web address] Other 01-02-2024 History of Present illness Narrative* [...] person, place and time. documented in this encounterUniversity [facility] Work Phone: 1(564) 713-489601-02-2024 Instructions* Patient Instructions* Paulo Bucio LPN - 05/27/2023 1:45 PM EST Follow up after testing CT Thoracic Echo documented in this encounterUniversity [facility]als [facility] Work Phone: 1(468) 546-998212-07-2023 Evaluation note* Encounter Date Diagnosis Assessment Notes Treatment Notes Treatment Clinical Notes Apr, Lumbar degenerative disc disease (ICD-10 - M51.36) [email or web address] Other 11-09-2023 Evaluation note* Encounter Date Diagnosis [...] to go to ER by calling 911. [email or web address] Other 11-07-2023 Evaluation note* Encounter Date Diagnosis Assessment Notes Treatment Notes Treatment Clinical Notes Mar, Lumbar degenerative disc disease (ICD-10 - M51.36) [email or web address] Other 10-19-2023 Evaluation note* Encounter Date Diagnosis Assessment Notes Treatment Notes Treatment Clinical Notes Feb, Anxiety disorder, unspecified (ICD-10 - F41.9) Chronic problem list refill Xanax. Patient states Xanax does completely resolve her symptoms reviewed OARRS report. Feb, Lumbar degenerative disc disease (ICD-10 - M51.36) We will request records from pain management at [facility] as far as the MRI and upcoming treatment plan. Reviewed OARRS report. Discussed decreasing amount or frequency of oxycodone. Patient defers to have an upcoming MRI and plan of treatment through pain management. We will monitor further symptoms of overdosing carefully. Feb, Vitamin D deficiency (ICD-10 - E55.9) Lab order sent to [facility] per patient's request Feb, Iron deficiency anemia, unspecified iron deficiency anemia type (ICD-10 - D50.9) As above lab order sent to [facility]. Previously under the care of of Dr. Bañuelos at [facility] Feb, Medication management (ICD-10 - Z79.899) Monitor kidney and liver function based on her chronic medications. [email or web address] Other 09-21-2023 Evaluation note* Encounter Date Diagnosis Assessment Notes Treatment Notes Treatment Clinical Notes Jan, Anxiety disorder, unspecified (ICD-10 - F41.9) [email or web address] Other 09-07-2023 Evaluation note* Encounter Date Diagnosis Assessment Notes Treatment Notes Treatment Clinical Notes Jan, Lumbar degenerative disc disease (ICD-10 - M51.36) [email or web address] Other 08-24-2023 Evaluation note* Encounter Date Diagnosis Assessment Notes Treatment Notes Treatment Clinical Notes Dec, Anxiety disorder, unspecified (ICD-10 - F41.9) [email or web address] Other 08-08-2023 Evaluation note* Encounter Date Diagnosis Assessment Notes Treatment Notes Treatment Clinical Notes Dec, Lumbar degenerative disc disease (ICD-10 - M51.36) [email or web address] Other 07-14-2023 Evaluation note* Encounter Date Diagnosis Assessment Notes Treatment Notes Treatment Clinical Notes Nov, Lumbar degenerative disc disease (ICD-10 - M51.36) [email or web address] Other 06-14-2023 Evaluation note* Encounter Date Diagnosis Assessment Notes Treatment Notes Treatment Clinical Notes Oct, Lumbar degenerative disc disease (ICD-10 - M51.36) [email or web address] Other 04-27-2023 Evaluation note* Encounter Date Diagnosis Assessment Notes Treatment Notes Treatment Clinical Notes Aug, Left foot pain (ICD-10 - M79.672) Aug, Migraine without status migrainosus, not intractable, unspecified migraine type (ICD-10 - G43.909) Aug, Anxiety disorder, unspecified (ICD-10 - F41.9) Aug, Depression, unspecified (ICD-10 - F32.A) [email or web address] Other 04-18-2023 Evaluation note* Encounter Date Diagnosis Assessment Notes Treatment Notes Treatment Clinical Notes Aug, Lumbar degenerative disc disease (ICD-10 - M51.36) [email or web address] Other 03-07-2023 Evaluation note* Encounter Date Diagnosis [...] Pain in left leg (ICD-10 - M79.605) [email or web address] Other 03-07-2023 Evaluation note* Encounter Date Diagnosis [...] bandaid and further cushioning on L elbow. [email or web address] Other 06-16-2021 NoteHNO ID: [id number] Author: Ariana Matute APRN.HAND TRUCKER Service: ? Author Type: Nurse Practitioner Type: Progress Notes Filed: 11/08/2020 3:37 PM Note Text: NAME: Candy Booth CLINIC NO.: [id number] DATE OF SERVICE: November 08, 2020 Referring [...] pill endoscopy. 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 She has primary complaints of fatigue but [...] as needed. sertraline ( (more content not included)...[facility]05-19-2021 NoteHNO ID: [id number] Author: Saritha Amaya MD Service: ? Author Type: Physician Type: Progress Notes Filed: 10/21/2020 6:59 PM Note Text: NAME: Candy Booth NO.: [id number] DATE OF SERVICE: October 11, 2020 Referring [...] pill endoscopy. 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 She has primary complaints of fatigue but [...] mg tablet Take 1 (more content not included)...[facility] No data available for this section General Surgery [place] Evaluation noteNo InformationNort [employer] Other Evaluation noteNoMindOps Other Evaluation note* Diagnosis Shortness of breath Essential hypertension Unspecified essential hypertension BMI 32.0-32.9,adult Smoker Tobacco use disorder Heart valve disease Endocarditis, valve unspecified, unspecified cause Dizziness Dizziness and giddiness Dilation of aorta (CMS/HCC) documented in this encounter [facility] Work Phone: Evaluation note* Diagnosis Shortness of breath Heart valve disease Endocarditis, valve unspecified, unspecified cause Dizziness Dizziness and giddiness Dilation of aorta (CMS/HCC) documented in this encounter [facility] Work Phone: Evaluation note* Diagnosis Angina pectoris, unstable (CMS/HCC)- Primary Intermediate coronary syndrome Dilation of aorta (CMS/HCC) Essential hypertension Unspecified essential hypertension Heart valve disease Endocarditis, valve unspecified, unspecified cause Shortness of breath Smoker Tobacco use disorder BMI 32.0-32.9,adult documented in this encounter [facility] Work Phone: Evaluation note* Diagnosis Essential hypertension Unspecified essential hypertension Shortness of breath Angina pectoris, unstable (CMS/HCC) Intermediate coronary syndrome documented in this encounter [facility] Work Phone: Evaluation note* Diagnosis Essential hypertension Unspecified essential hypertension Shortness of breath Angina pectoris, unstable (CMS/HCC) Intermediate coronary syndrome documented in this encounter [facility] Work Phone: Evaluation note* Diagnosis Onset Date Resolution Status Edema acute HTN (hypertension) acute [facility] Work Phone: Evaluation note* Diagnosis Onset Date Resolution Status Anxiety acute Chronic lumbar pain acute Edema acute HTN (hypertension) acute Lumbar degenerative disc disease acute Peripheral neuropathic pain acute Skin ulcer of elbow acute Anxiety acute Chronic pain syndrome acute Encounter for palliative care acute Peripheral neuropathic pain acute [facility] Work Phone: Evaluation note* Diagnosis Onset Date Resolution Status Anxiety acute Chronic lumbar pain acute Edema acute HTN (hypertension) acute Lumbar degenerative disc disease acute Peripheral neuropathic pain acute Skin ulcer of elbow acute Anxiety acute Chronic pain syndrome acute Encounter for palliative care acute Anxiety acute Chronic pain syndrome acute [facility] Work Phone: Evaluation note* Diagnosis Onset Date Resolution Status Anxiety acute Chronic lumbar pain acute Edema acute HTN (hypertension) acute Lumbar degenerative disc disease acute Peripheral neuropathic pain acute Skin ulcer of elbow acute Anxiety acute Chronic pain syndrome acute Encounter for palliative care acute Anxiety acute Chronic pain syndrome acute Chronic pain syndrome acute Peripheral neuropathic pain acute [facility] Work Phone: evaluation note* Diagnosis Onset Date Resolution Status Anxiety acute Chronic pain syndrome acute Anxiety acute Chronic pain syndrome acute Depression acute Impaired mobility and ADLs a cute Peripheral neuropathic pain acute Anxiety acute Chronic pain syndrome acute Depression acute Peripheral neuropathic pain acute [facility] Work Phone: Evaluation note* Diagnosis Onset Date Resolution Status Anxiety acute Chronic pain syndrome acute Anxiety acute Chronic pain syndrome acute Depression acute Impaired mobility and ADLs a cute Peripheral neuropathic pain acute Anxiety acute Chronic pain syndrome acute [facility] Work Phone: evaluation note* Diagnosis Onset Date Resolution Status Anxiety acute Chronic pain syndrome acute Acute parotitis acute Lumbar degenerative disc disease acute Peripheral neuropathic pain acute Anemia due to blood loss acu te [facility] Work Phone: evaluation note* Diagnosis Onset Date Resolution Status Anxiety acute Chronic pain syndrome acute Acute parotitis acute Lumbar degenerative disc disease acute Peripheral neuropathic pain acute Anemia due to blood loss acu te Chronic gastrojejunal anastomotic ulcer acute Weakness acute [facility] Work Phone: evaluation note* Diagnosis Onset Date Resolution Status Anxiety acute Chronic pain syndrome acute Acute parotitis acute Lumbar degenerative disc disease acute Peripheral neuropathic pain acute Anemia due to blood loss acu te Chronic gastrojejunal anastomotic ulcer acute Weakness acute Cellulitis of left foot acut e Left foot pain acute [facility] Work Phone: Evaluation note* Diagnosis Onset Date Resolution Status Anemia due to blood loss acu te Chronic gastrojejunal anastomotic ulcer acute Weakness acute Cellulitis of left foot acut e Left foot pain acute Anxiety acute Chronic pain syndrome acute Depression acute Left foot pain acute Anxiety acute Chronic pain syndrome acute [facility] Work Phone: evaluation note* Diagnosis Pre-operative clearance Unspecified pre-operative examination Pre-op examination Heart valve disease Endocarditis, valve unspecified, unspecified cause Dilation of aorta (CMS-HCC) Essential hypertension Unspecified essential hypertension Smoker Tobacco use disorder documented in this encounter [facility] Work Phone: Evaluation note* Diagnosis Heart valve disease Endocarditis, valve unspecified, unspecified cause Dilation of aorta ([facility]-HCC) Essential hypertension Unspecified essential hypertension BMI 32.0-32.9,adult Smoker Tobacco use disorder documented in this encounter [facility] Work Phone: Evaluation note* Diagnosis Lumbar stenosis with neurogenic claudication- Primary Spinal stenosis, lumbar region, with neurogenic claudication Hypokalemia Hypopotassemia Primary hypertension Unspecified essential hypertension documented in this encounter [facility] note* Diagnosis GI bleed- Primary Hemorrhage of [...] mention of obstruction documented in this encounter [facility] noteNo assessment information available [facility] Work Phone: Hisdgtu general Narrative - Reported* Type Description Date [...] Surgical History diskectomy Hospitalization History see above [employer] Other History general Narrative - [facility]ortedNortRox[facility] [employer] Other Hospital Discharge instructions No data available for this section [facility] Discharge instructionsAmbulatory Orders* Initiate Home Health Time Frame: 1 Day, Location: Determined By Patient Additional Instructions Home Health to manage care: - Full code - PT/OT eval and treat - Routine vital signs - Medication management and education - Maintain chronic indwelling campoverde catheter to drainage or leg bag, routine care per protocol - Contact precautions for ESBL [facility]Mer[facility] Work Phone: Progress note No data available for this section General Surgery [place] Reason for referral (narrative)No reason for referral information availableChildren[facility] Work Phone: Rentlq for visit Narrativereferral for pain management / orthoNorth [employer] Other Summary Purpose Family History No Family [...] Time Advance Directives No September 21 2:41pm Advance Directive Response Recorded Date/ Time Advance Directives No September 21 1:41pm Advance Directive Response Recorded Date/ Time Advance Directives No April 27, 2024 4:02pm Documents on File Type Date Recorded Patient Machine Tracer Expl anation ACP-Advance Directive 10/19/2017 4:34 PM [...] Advance Directives No April 27, 2024 5:02pm Advance Directive Response Recorded Date/ Time Advance Directives No March 02, 2025 9:17am Reason for Referral Specialty Diagnoses / Procedures Referred By Contac t Referred To Contact Radiology Diagnoses Essential hypertension Shortness of breath Angina pectoris, unstable (CMS/HCC) Procedures CT angio coronary art with heartflow if score >30% Yossi Hunter MD [address] [facility], [address] [place] [address] Referral ID Status Reason Start Date Expiration Date Visits Requested Visits Authorized [id number] Pending Review Perform Procedure 07/01/2023 06/30/2024 1 1 Reason *FU 07/07 Lumbar D DD and radiculopathy Diagnosis 1 Lumbar degenerative disc disease (M51.36) Referral Organization [facility] Referring Provider First Name Maureen Referring Provider Last Name Mando Referring Provider Specialty Family [facility] Referred Organization [facility] Referred Provider LisaDarlene lee Referred Address ,[place], [place],[address] Referred Provider Specialty Orthopedic S urgery Referral Priority Routine General Notes Joselyn Zee 12:44:56 PM >received today, notes locked, attachments made, referral faxed Specialty Diagnoses / Procedures Referred By Contac t Referred To Contact Radiology Diagnoses Heart valve disease Dilation of aorta (CMS/HCC) Procedures CT chest wo IV contrast Yossi Hunter MD [address] [facility], [address] [address] Referral ID Status Reason Start Date Expiration Date Visits Requested Visits Authorized [id number] Pending Review Perform Procedure 05/27/2023 05/26/2024 1 1 Specialty Diagnoses / Procedures Referred By Contac t Referred To Contact Cardiology Diagnoses Shortness of breath Heart valve disease Dizziness Dilation of aorta (CMS/HCC) Procedures Transthoracic Echo (TTE) Complete NM ECHO TTHRC R-T 2D W/WOM-MODE COMPL SPEC&COLR D Yossi Hunter MD [address] [facility] [address], [address] [place] [address] Referral ID Status Reason Start Date Expiration Date Visits Requested Visits Authorized [id number] Pending Review Perform Procedure 05/27/2023 05/26/2024 1 [...] Patient here for a f/u in office Novem r 2023 3:27pm surgical clearance, Dr Vegas/Chrissy/dec [...] Chief Complaint Admit Date surgical clearance, Dr Vegas/Nickieb/cari omp/fusion April 08, 2024 2:57pm Discuss surgery/UA [...] 08 2:57pm Lumbar degenerative disc disease [facility] 2023 2:57pm Peripheral neuropathic pain March 2:57pm [...] 2 month f/u October 20, 2024 3:30pm jail December 07, 2024 11:5 9pm Amb Documentation December 13, 2024 10:1 3am snf visit December 23, 2024 11:5 9pm F/u via Virtual January 11, 2025 4: 15pm Reason for Visit Admit Date Anxiety October 20, 2024 3:30p m Chronic pain syndrome October 20, 2024 3:3 0pm Chief Complaint Admit Date Patient here for a 2 month f/u October 20, 2024 3:30pm jail December 07, 2024 11:5 9pm Amb Documentation December 13, 2024 10:1 3am snf visit December 23, 2024 11:5 9pm F/u via Virtual January 11, 2025 4: 15pm Virtual: Phone Call to Discuss Meds Augu st 2024 2:02pm Chief Complaint Admit Date jail December 07, 2024 11:5 9pm Amb Documentation December 13, 2024 10:1 3am snf visit December 23, 2024 11:5 9pm F/u via Virtual January 11, 2025 4: 15pm Virtual: Phone Call to Discuss Meds Augu st 2024 2:02pm Chief Complaint Admit Date jail December 07, 2024 11:5 9pm Amb Documentation December 13, 2024 10:1 3am snf visit December 23, 2024 11:5 9pm F/u [...] 2025 5:04pm History of Linsey-en-Y gastric bypass Sept 2024 5:04pm Impaired mobility and ADLs January 5:04pm Left foot pain January 25, 2025 5:04pm LV (left ventricular) mural thrombus Sep 2024 5:04pm Takotsubo cardiomyopathy January 25, 2025 5:04pm Chief Complaint Admit Date jail December 07, 2024 11:5 9pm Amb Documentation December 13, 2024 10:1 3am snf visit December 23, 2024 11:5 9pm F/u via Virtual January 11, 2025 4: 15pm Virtual: Phone Call to Discuss Meds Augu 2024 2:02pm Heart Clot/GI Bleed January 25, 2025 5:04pm Heart Clot/GI Bleed February 01, 2025 12:00am Amb Documentation February 02, 2025 9:05am Unknown February 17, 2025 6:10pm Urospesis February 18, 2025 1:27am Reason for Visit Admit Date Acute blood [...] History of Linsey-en-Y gastric bypass Jan 1:27am LV (left ventricular) mural thrombus Sep tem2024 1:27am Sepsis February 18, 2025 1:27am Takotsubo cardiomyopathy February 18, 2025 1:27am UTI (urinary tract infection) February 18, 2025 1:27am Reason for Visit Admit Date Acute blood [...] 1:27am [facility] Sepsis February 18, 2025 1:27am Takotsubo cardiomyopathy February 18, 2025 1:27am UTI (urinary tract infection) February 18, 2025 1:27am Chief Complaint Admit Date jail December 07, 2024 11:5 9pm Amb Documentation December 13, 2024 10:1 3am snf visit December 23, 2024 11:5 9pm F/u via Virtual January 11, 2025 4: 15pm Virtual: Phone Call to Discuss Meds Augu st 2024 2:02pm Heart Clot/GI Bleed January 25, 2025 5:04pm Heart Clot/GI Bleed February 01, 2025 12:00am Amb Documentation February 02, 2025 9:05am Unknown February 17, 2025 6:10pm Urospesis February 18, 2025 1:27am Amb Documentation February 28, 2025 8: 22am Virtual, Hosp F/u [facility] March 03, 2025 11:34am Chief Complaint Admit Date Amb Documentation December 13, 2024 10:1 3am snf visit December 23, 2024 11:5 9pm F/u via Virtual January 11, 2025 4: 15pm Virtual: Phone Call to Discuss Meds Augu st 2024 2:02pm Heart Clot/GI Bleed January 25, 2025 5:04pm Heart Clot/GI Bleed February 01, 2025 12:00am Amb Documentation February 02, 2025 9:05am Unknown February 17, 2025 6:10pm Urospesis February 18, 2025 1:27am Amb Documentation February 28, 2025 8: 22am VIRTUAL:hosp f/u [phone] March 082024 1:23pm Chief Complaint Admit Date Amb Documentation December 13, 2024 10:1 3am snf visit December 23, 2024 11:5 9pm F/u via Virtual January 11, 2025 4: 15pm Virtual: Phone Call to Discuss Meds Augu st 2024 2:02pm Heart Clot/GI Bleed January 25, 2025 5:04pm Heart Clot/GI Bleed February 01, 2025 12:00am Amb Documentation February 02, 2025 9:05am Unknown February 17, 2025 6:10pm Urospesis February 18, 2025 1:27am Amb Documentation February 28, 2025 8: 22am VIRTUAL:hosp f/u [phone] March 082024 1:23pm f/u via phone March 08, 2025 4 :02pm Additional Source Comments INFORMATION SOURCE (unrecogn ized section and content) DATE CREATED AUTHOR 03/09/2018 [facility] DATE CREATED AUTHOR AUTHOR'S ORGANIZ ATION 08/07/2021 [facility] DATE CREATED AUTHOR AUTHOR'S ORGANIZ ATION 08/17/2021 [facility] DATE CREATED AUTHOR AUTHOR'S ORGANIZ ATION 01/18/2022 [facility] DATE CREATED AUTHOR AUTHOR'S ORGANIZ ATION 04/05/2022 [facility] DATE CREATED AUTHOR AUTHOR'S ORGANIZ ATION 11/16/2023 [facility] DATE CREATED AUTHOR AUTHOR'S ORGANIZ ATION 01/13/2024 [facility] DATE CREATED AUTHOR AUTHOR'S ORGANIZ ATION 01/24/2024 [facility] DATE CREATED AUTHOR AUTHOR'S ORGANIZ ATION 02/15/2024 [facility] DATE CREATED AUTHOR AUTHOR'S ORGANIZ ATION 05/09/2024 [facility] DATE CREATED AUTHOR AUTHOR'S ORGANIZ ATION 06/17/2024 [facility] DATE CREATED AUTHOR AUTHOR'S ORGANIZ ATION 01/13/2025 Jonel Paredesus [facility] DATE CREATED AUTHOR AUTHOR'S ORGANIZ ATION 01/22/2025 [facility] DATE CREATED AUTHOR AUTHOR'S ORGANIZ ATION 03/11/2025 [facility] ysician Group Care Team (unrecognized sect ion [...] Provider Active Start: December 03, 2024 Jackson Modnragon MD Attending Provider Active Sta rt: December [...] Almodovar MD Admit Provider Active Start: S aubreyteshalonda 2024 Camden Almodovar MD Other Provider Active Start: S epteshalonda 2024 Yessenia Heart RN Other Provider Active [...] Start: S eptember 2024 Katheryn Kearney , REGULATORY PRODUCT MANAGER- Other Provider Active Sta rt: January 25, [...] Start : January 25, 2025 Barbi Nelson , DIRECTOR OF RESOURCE DEVELOPMENT-C Other Provider Active St art: January 25, [...] Provider Active Start: February 01, 2025 Tatyana Ohraa MD Other Provider Active St art: February 01, 2025 Divya Avalos APRN Other Provider Active Start : February 01, 2025 Ilda Marquez MD Other Provider Active Start: S eptember 2024 Katheryn Kearney , REGULATORY PRODUCT MANAGER- Other Provider Active Sta rt: February 01, 2025 Jose M Valentine MD Other Provider Active Start : February 01, 2025 Zeyad El APRN Other Provider Active St art: February 01, 2025 Palmira Cope MD Other Provider Active Start: Jan Tiffany Guerra , DO Other Provider Active Start: February 01, [...] Provider Active Start: S eptember 2024 Martina Saurez MD Other Provider Active Start: Jan Maureen [...] Active Start: January 06, 2024 Jayjay Oscar , Attending Provider Active S tart: January 06, [...] October 14, 2023 End: October 14, 2023 Joint Terminal Attack Controller Relationship Specialty Start Date End Date Maureen Gilmore MD [address] [place] [address] PCP - General Family Medicine 05/27/23 Joint Terminal Attack Controller Relationship Specialty Start Date End Date Maureen Gilmore MD [address] [place] [address] PCP - General Family Medicine 05/27/23 Joint Terminal Attack Controller Relationship Specialty Start Date End Date Maureen Gilmore MD [address] [place] [address] PCP - General Family Medicine 05/27/23 Yossi Hunter MD [facility], [address] [address] Carbonation Equipment Operator Cardiology 06/17/23 Joint Terminal Attack Controller Relationship Specialty Start Date End Date Maureen Gilmore MD [address] [place] [address] PCP - General Family Medicine 05/27/23 Yossi Hunter MD [address] [place] [address], [facility] [address] [place] [address] Carbonation Equipment Operator Cardiology 06/17/23 Joint Terminal Attack Controller Relationship Specialty Start Date End Date Maureen Gilmore MD [address] [place] [address] PCP - General Family Medicine 05/27/23 Yossi Hunter MD [address] [place] [address], [facility] [address] [place] [address] Carbonation Equipment Operator Cardiology 06/17/23 Team Status: Active Member Role [...] September 12, 2023 End: September 12, 2023 Joint Terminal Attack Controller Relationship Specialty Start Date End Date Maureen Gilmore MD [address] [place] [address] PCP - General Family Medicine 05/27/23 Yossi Hunter MD [address] [facility] [place] [address] Carbonation Equipment Operator Cardiology 06/17/23 Joint Terminal Attack Controller Relationship Specialty Start Date End Date Maureen Gilmore MD [address] [place] [address] PCP - General Family Medicine 05/27/23 Yossi Hunter MD [address] [facility] [place] [address] Carbonation Equipment Operator Cardiology 06/17/23 Joint Terminal Attack Controller Relationship Specialty Start Date End Date Maureen Gilmore MD PCP - General Family Medicine 10/18/17 Joint Terminal Attack Controller Relationship Specialty Start Date End Date Maureen Gilmore MD PCP - General Family Medicine 10/18/17 Joint Terminal Attack Controller Relationship Specialty Start Date End Date Maureen Gilmore MD PCP - General Family Medicine 10/22/23 Joint Terminal Attack Controller Relationship Specialty Start Date End Date Maureen Gilmore MD PCP - General Family Medicine 10/22/23 Team Status: Active Member Role Status Dates PHYSICIAN NO FAMILY Primary Care Provider Active Start: January 25, 2025 Camden Almodovar MD Admit Provider Active Start: Tom sims 2024 Camden Almodovar MD Other Provider Active Start: Tom sims 2024 Yessenia Heart RN Other Provider Active Star t: January 25, 2025 Jaimee Lim DO Other Provider Active Start : January 25, 2025 Srini Castillo MD Other Provider Active Start: January 25, 2025 Tatyana Ohara MD Other Provider Active St art: January 25, 2025 Divya Avalos SENIOR SALES OPERATIONS ANALYST Other Provider Active Start : January 25, 2025 Ilda Marquez MD Other Provider Active Start: S eptember 2024 Katheryn Kearney , [facility]- Other Provider Active Sta rt: January 25, 2025 Jose M Valentine MD Other Provider Active Start : January 25, 2025 Zeyad El APRN Other Provider Active St art: January 25, 2025 Palmira Cope MD Attending Provider Active Start: January 25, 2025 Palmira Cope MD Other Provider Active Start: Sep tember 2024 Tiffany Guerra DO Other Provider [...] Provider Active S tart: January 25, 2025 Richard Granger MD Other [...] St art: February 01, 2025 Divya Avalos APRN Other Provider Active Start : February 01, 2025 Ilda Marquez MD Other Provider Active Start: S eptember 2024 Katheryn Kearney , [facility]- Other Provider Active Sta rt: February [...] Active Start : February 01, 2025 ROSEY Posada Attending Provider Active Start: February 01, 2025 ROSEY Posada Other Provider Active S tart: February 01, 2025 Richard Granger MD Other Provider Active Start : February 01, 2025 Julio C Turner MD Other Provider Active Start: February 01, 2025 Juice Browne MD Other Provider Active Start: eptember 2024 Martina Suarez MD Other Provider Active Start: Jan Maureen Gilmore MD Primary Care Provider Active Start: February 01, 2025 Team Status: Active Member Role Status Dates Maureen Gilmore MD Primary Care Provider Active Start: February 02, 2025 Tiffany Egan CMA Attending Provider Active Start: February 02, 2025 Team Status: Active Member Role Status Dates Maureen Gilmore MD Primary Care Provider Active Start: February 17, 2025 Jayjay Oscar DO Attending Provider Active S tart: February 17, 2025 Team Status: Inactive Member Role Status Dates Maureen Gilmore MD Primary Care Provider Active Start: February 17, 2025 End: February 17, 2025 Jayjay Oscar DO Attending Provider Active S tart: February 17, 2025 End: February 17, 2025 Team Status: Active Member Role Status Dates Maureen Gilmore MD Primary Care Provider Active Start: February 18, 2025 Ruiz Bettencourt DO Admit Provider Active Start: February 18, 2025 Cookie Terry MD Attending Provider Active Start : February 18, 2025 Team Status: Active Member Role Status Dates Maureen Gilmore MD Primary Care Provider Active Start: February 18, 2025 Ruiz Bettencourt DO Admit Provider Active Start: February 18, 2025 Cookie Terry MD Other Provider Active Start: 2024 Ibrahima Greenberg MD Attending Provider Active Sta rt: February 18, 2025 Ibrahima Greenberg MD Other Provider Active Start: February 18, 2025 Team Status: Active Member Role Status Lyndsey Gilmore MD Primary Care Provider Active Start: February 28, 2025 Tiffany Egan CMA Attending Provider Active Start: February 28, 2025 Team Status: Inactive Member Role Status Lyndsey Gilmore MD Primary Care Provider Active Start: March 03, 2025 End: March 03, 2025 Maureen Gilmore MD Attending Provider Active St art: March 03, 2025 End: March 03, 2025 Team Status: Inactive Member Role Status Lyndsey Gilmore MD Primary Care Provider Active Start: March 08, 2025 End: March 08, 2025 Maureen Gilmore MD Attending Provider Active St art: March 08, 2025 End: March 08, 2025 Team Status: Inactive Member Role Status Lyndsey Gilmore MD Primary Care Provider Active Start: March 08, 2025 End: March 08, 2025 Thi Vidal APRN Attending Provider Active Start: March 08, 2025 End: March 08, 2025 REASON FOR VISIT (unrecogniz ed section and content) Reason Comments New Patient Visit Specialty Diagnoses / Procedures Referred By Norberto t Referred To Contact Cardiology Diagnoses Shortness of breath Heart valve disease Dizziness Dilation of aorta (CMS/HCC) Procedures Transthoracic Echo (TTE) Complete NM ECHO TTHRC R-T 2D W/WOM-MODE COMPL SPEC&COLR D Yossi Hunter MD [address] [facility], [address] [address] Referral ID Status Reason Start Date Expiration Date Visits Requested Visits Authorized [id number] Authorized Perform Procedure 05/27/2023 05/26/2024 1 1 Reason Comments Patient here for follow up Echo Specialty Diagnoses / Procedures Referred By Norberto t Referred To Contact Radiology Diagnoses Essential hypertension Shortness of breath Angina pectoris, unstable (CMS/HCC) Procedures CT angio coronary art with heartflow if score >30% Yossi Hunter MD [address] [facility], [address] [address] Referral ID Status Reason Start Date Expiration Date Visits Requested Visits Authorized [id number] Authorized Perform Procedure 07/01/2023 06/30/2024 1 1 Reason Comments Pre-op Clearance POC to have lumbar s urgery on 04/21/[address] Jovana Guardado in [facility] Specialty Diagnoses / Procedures Referred By Norberto t Referred To Contact Diagnoses Pre-operative clearance Procedures ECG 12 lead (Clinic Performed) Yossi Hunter MD [address] [facility], [address] [address] Phone: tel: fax: Referral ID Status Reason Start Date Expiration Date V isits Requested Visits Authorized [id number] Authorized 04/07/2024 04/07/2025 1 1 Reason Comments Pre-op Clearance POC to have lumbar s urgery on pending with Dr. 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 [M48.07] Procedures NM ARTHRODESIS POSTERIOR/PSTLAT TQ 1NTRSPC LUMBAR NM KU FACETECTOMY&FORAMOT 1 VRT SGM EA ADDL SGM NM KU FACETECTOMY & FORAMOTOMY 1 VRT SGM LUMBAR NM POSTERIOR NON-SEGMENTAL INSTRUMENTATION NM AUTOGRAFT SPINE SURGERY LOCAL FROM SAME INCISION L4-L5 REVISION DECOMPRESSION WITH FUSION L4-L5 REVISION DECOMPRESSION WITH FUSION L4-L5 REVISION DECOMPRESSION WITH FUSION L4-L5 REVISION DECOMPRESSION WITH FUSION L4-L5 REVISION DECOMPRESSION WITH FUSION Jovana Holloway MD [address] [place] [address] [place] [address] [facility] [address] [place] [address] Referral ID Status Reason Start Date Expiration Date Visits Re quested Visits Authorized [id number] 1 1 Specialty Diagnoses / Procedures Referred By Norberto t Referred To Contact Diagnoses GI bleed GI Bleed, [facility] Suzanne Pretty MD [address] [address] [facility] [address] [place] [address] Referral ID Status Reason Start Date Expiration Date Visits Re quested Visits Authorized [id number] 1 1 Goals (unrecognized section and content) [...] contents., Post-op 0642 (Given - Provider: Alyssa Lnatigua RN) metoprolol succinate (TOPROL XL) extended release [...] Other)2136 (Given - Provider: Luba Caldwell RN) 102 (Given - Provider: Genevieve Jones RN)1456 (Given [...] RN) 0850 (Given - Provider: Genevieve Jones, RN)213 (Given - Provider: Luba Caldwell RN) 1023 [...] hours., Post-op 1632 (Given - Provider: Conchita Patterosn RN) 0304 (Given - Provider: Luba Caldwell [...] swallowed separately. 1259 (Given - Provider: Genevieve Jonse RN) potassium chloride 10 mEq/100 mL IVPB [...] PRN, Starting on Fri06/08/24 at 1748, Until 06/09/24 at 1415, Pain [...] Zepeda, TIFFANIE) 0820 (Given - Provider: Sissy Haryd, TIFFANIE) carvedilol (COREG) tablet 6.25 mg 6.25 mg, Oral, 2 TIMES DAILY WITH MEALS, First dose (after last modification) on Fri01/04/24 at 1700, Until Discontinued, Hold if SBP less than 110, heart rate less than 55 Administer with food to minimize the risk of orthostatic hypotension 1554 (Given - Provider: Sissy Hardy, TIFFANIE) 0828 (Given - Provider: Ana Malone, TIFFANIE)1555 [...] RN) 08 (Given - Provider: Sissy Hardy RN)1305 (Given - Provider: Sissy Hardy RN)2004 (Given - Provider: Tim Dejesus RN) [...] mL/lumen 0758 (Given - Provider: Lamar Zepeda RN)2044 (Given - Provider: Diane Eng RN) 0820 (Given - Provider: Sissy Hardy RN)2008 (Given - Provider: Tim Dejesus RN) 08 (Given - Provider: Ana Malone, TIFFANIE)2100 [...] RN) 0846 (Given - Provider: Ana Malone, TIFFANIE)1432 (Given - Provider: Ana Malone, TIFFANIE)2200 (Due) Continuous Medication Order 01/03/2024 01/04/2024 01/05/2024 [...] Eng RN)2149 (Rate/Dose Verify - Provider: Diane Egn RN)2229 (Stopped - Provider: Diane Eng RN)2229 [...] RN)205 (Rate/Dose Verify - Provider: Diane Eng RN)2228 [...] or less into rate field of order. 1822 (Stopped - Provider: Ana Malone RN - Comment: stopped for avs) 0.9 % sodium chloride infusion IntraVENous, at 240 mL/hr, Administer over 10 Minutes, PRN, blood administration, Starting on Fri01/01/24 at 1417, For 1 dose, For use [...] Anxiety 0917 (Given - Provider: Lamar Zepeda RN)2042 (Given - Provider: Diane Eng RN) 06 (Given - Provider: Diane Eng RN)1138 (Given - Provider: Sissy Hardy RN)2008 (Given - Provider: Tim Dejesus RN) benzonatate (TESSALON) capsule 200 mg 200 mg, Oral, 3 TIMES DAILY PRN, Starting on Fri12/31/23 at 0631, Until Discontinued, Cough guaiFENesin (MUCINEX) extended release tablet 600 mg 600 mg, Oral, 2 TIMES DAILY PRN, Starting on Fri12/31/23 at 0631, Until Discontinued, Congestion, Cough, Do not crush or break. 0628 (Given - Provider: Diane Eng, TIFFANIE) hydrALAZINE [...] Fri01/05/24 at 1144, Until Discontinued, if SBP < [...] 1000 (See Alternative - Provider: Ana Malone, RN)1116 (See Alternative - Provider: Ana Malone, TIFFANIE)1214 (See Alternative - Provider: Ana Malone, RN)1301 (See Alternative - Provider: Ana Malone, RN)1431 (See Alternative - Provider: Ana Malone, RN)1540 (See Alternative - Provider: Ana Malone, TIFFANIE) [...] TIFFANIE) 0621 (See Alternative - Provider: Diane Eng, RN) 1000 (New Bag - Provider: Ana Malone RN)1116 (New Bag - Provider: Ana Malone RN)1214 (New Bag - Provider: Ana Malone, TIFFANIE)1301 (New Bag - Provider: Ana Malone, RN)1431 (New Bag - Provider: Ana Malone, TIFFANIE)1540 (New Bag - Provider: Ana Malone, TIFFANIE) sodium chloride flush 0.9 % injection 5-40 mL 5-40 mL, IntraVENous, PRN, Starting on Fri12/30/23 at 181, Until Discontinued, Line Care, After every IV [...] BE BASED ON THE PRIMARY CLINICAL RECORDS. [facility]. provides no warranty or guarantee of the accuracy or completeness of information in this document.
--- NOTE | 2025-03-12 11:43 | XR_ITS ---
[address] [address] Patient Name: RASHID BOOTH MRN: [id number] date: 1970 Sex: F Assigned Patient Location: ER Current Patient Location: ER Accession/Order Number: [id number] Exam Date: 03/12/2025 12:00 Report Date: 03/12/2025 12:41 At the request of: NBA OLIVIA MD Procedure: XR chest 1V XR chest 1V 03/12/2025 12:11 PM SIGNS AND SYMPTOMS: ^weak, fall, left hip pain PROTOCOL: Frontal radiograph of the chest COMPARISON: 02/17/2025 FINDINGS: The trachea is midline. The heart and mediastinal structures are within normal limits. The lung parenchyma is clear. The bony thorax is intact. XR/XR chest 1V IMPRESSION: No acute cardiopulmonary pathology. Impression dictated by: Lamonte Szymanski M.D. 03/12/2025 12:41 PM Dictation Location: [place] [address] Electronically authenticated by: [id number] Y Date: 03/12/2025 12:41
--- NOTE | 2025-03-12 11:43 | ECG_ITS ---
[facility] Test Date: 2025-03-12 Pat Name: RASHID BOOTH Department: Room: - Gender: Female Radio Interference Supervisor: : 1970 Requested By: MAUREEN MITCHELL Order Number: [id number] Rylee MD: PARIS SALINAS M.D. Measurements Intervals [place] Rate: 123 P: 47 MI: 156 QRS: 53 QRSD: 82 T: 193 QT: 344 QTc: 417 Interpretive Statements 1120 Sinus tachycardia [address] depression 4364 Twave abnormality, possible anterolateral ischemia 4664 Twave abnormality, possible inferior ischemia 9150 abnormal ECG Compared to ECG 02/17/2025 16:41:58 Atrial abnormality no longer present ST (T wave) deviation still present Possible ischemia still present Electronically Signed On 03-13-2025 10:49:15 EDT by PARIS SALINAS M.D.
--- NOTE | 2025-03-12 11:44 | XR_ITS ---
The [address] [address] Patient Name: RASHID BOOTH MRN: [id number] date: 1970 Sex: F Assigned Patient Location: ER Current Patient Location: ER Accession/Order Number: [id number] Exam Date: 03/12/2025 12:00 Report Date: 03/12/2025 12:43 At the request of: NBA OLIVIA MD Procedure: XR hip LT min 2V XR hip LT min 2V 03/12/2025 12:11 PM SIGNS AND SYMPTOMS: Fall, left hip pain PROTOCOL: Frontal and frog-leg views of the left hip COMPARISON: None FINDINGS: There are transversely oriented inward displaced fractures of the left superior-inferior pubic rami. The left hip is otherwise intact. XR/XR hip LT min 2V IMPRESSION: There are transversely oriented inward displaced fractures of the left superior-inferior pubic rami. Impression dictated by: Lamonte Szymanski M.D. 03/12/2025 12:43 PM Dictation Location: [place] [address] Electronically authenticated by: [id number] Y Date: 03/12/2025 12:43
--- NOTE | 2025-03-12 11:52 | ED.GENADUL1 ---
HPI HPI - General Adult General Chief complaint: Extremity Injury, Lower Stated complaint: FALL HIP PAIN Time Seen by Provider: 03/12/25 11:33 Source: patient Mode of arrival: ambulance History of Present Illness HPI narrative: 54-year-old female presented to the emergency department for left hip pain. She states she was weak yesterday and she fell on it. Paramedics came to her house but she was not transported anywhere. She has a chronically indwelling Elaine catheter. No fever or vomiting or any other injury. No complaints of head or neck pain. Related Data Home Medications ?Medication ?Instructions ?Recorded ?Confirmed amitriptyline 75 mg tablet 75 mg PO .QHS 01/22/25 03/12/25 docusate sodium 100 mg capsule 100 mg PO DAILY PRN constipation 01/22/25 03/12/25 ([facility]) oxycodone 10 mg tablet 10 mg PO Q4H PRN pain 01/22/25 03/12/25 potassium chloride 20 mEq 20 meq PO DAILY 01/22/25 03/12/25 tablet,extended release(part/cryst) carvedilol 3.125 mg tablet 3.125 mg PO BID 02/17/25 03/12/25 enoxaparin 40 mg/0.4 mL 40 mg subcut DAILY 02/17/25 03/12/25 subcutaneous syringe pantoprazole 40 mg tablet,delayed 40 mg PO DAILY 02/17/25 03/12/25 release spironolactone 25 mg tablet 12.5 mg PO DAILY 02/17/25 03/12/25 valsartan 40 mg tablet 40 mg PO DAILY 02/17/25 03/12/25 pregabalin 100 mg capsule 100 mg PO BID 03/12/25 03/12/25 Previous Rx's ?Medication ?Instructions ?Recorded acetaminophen 325 mg tablet 650 mg (2 x 325 mg) PO Q6H PRN 12/06/24 (Tylenol) Pain/FEVER #0 tabs alprazolam 0.5 mg tablet 0.5 mg PO BID PRN anxiety 5 days 12/06/24 #10 tabs aspirin 325 mg tablet 325 mg PO DAILY #30 tabs 12/06/24 metoprolol tartrate 25 mg tablet 25 mg PO BID #0 tabs 12/06/24 Allergies Allergy/AdvReac Type Severity Reaction Status Date / Time NSAIDS (Non-Steroidal AdvReac Intermediate Gastrointestinal Verified 02/17/25 16:44 Anti-Inflamma Upset Opioid HPI Opioid Management Most Recent Opioid Data: Last Pain Scale 8 02/18/25, 00:07 Last ORT Total Score 0 11/30/24, 21:41 Last ORT Risk Category Low Risk 11/30/24, 21:41 Ur Phencyclidine Scrn, (NEGATIVE) Negative 01/22/25, 23:16 Review of Systems ROS Narrative A ten point review of systems is negative except as noted above. [facility] Medical History (Updated 03/12/25 @ 15:00 by Harry Oscar MD) ESBL (extended spectrum beta-lactamase) producing bacteria infection ?A49.9 - Bacterial infection, unspecified (ICD-10) ?Z16.12 - Extended spectrum beta lactamase (ESBL) resistance (ICD-10) Chronic pulmonary embolism ?I27.82 - Chronic pulmonary embolism (ICD-10) Chronic hypoxic respiratory failure ?J96.11 - Chronic respiratory failure with hypoxia (ICD-10) COPD (chronic obstructive pulmonary disease) ?J44.9 - Chronic obstructive pulmonary disease, unspecified (ICD-10) Polypharmacy ?Z79.899 - Other intermodal dispatcher (current) drug therapy (ICD-10) Fall ?W19.XXXA - Unspecified fall, initial encounter (ICD-10) Elevated LFTs ?R79.89 - Other specified abnormal findings of blood chemistry (ICD-10) HTN (hypertension) ?I10 - Essential (primary) hypertension (ICD-10) Thickening of wall of gallbladder ?K82.8 - Other specified diseases of gallbladder (ICD-10) Syncope ?R55 - Syncope and collapse (ICD-10) Peripheral neuropathy ?G62.9 - Polyneuropathy, unspecified (ICD-10) Chronic bilateral back pain ?M54.9 - Dorsalgia, unspecified (ICD-10) ?G89.29 - Other chronic pain (ICD-10) Afib ?I48.91 - Unspecified atrial fibrillation (ICD-10) Aortic aneurysm ?I71.9 - Aortic aneurysm of unspecified site, without rupture (ICD-10) GI bleed ?K92.2 - Gastrointestinal hemorrhage, unspecified (ICD-10) Surgical History Previous back surgery ?Z98.890 - Other specified postprocedural states (ICD-10) Status post abdominoplasty ?Z98.890 - Other specified postprocedural states (ICD-10) Status post abdominoplasty ?Z98.890 - Other specified postprocedural states (ICD-10) H/O hysterectomy with oophorectomy H/O: hysterectomy ?Z90.710 - Acquired absence of both cervix and uterus (ICD-10) Gastric bypass status for obesity ?Z98.84 - Bariatric surgery status (ICD-10) Family History Mother Family history of cancer Family history of hypertension Social History (Updated 11/30/24 @ 21:55 by Kat Escobedo RN) Within the past year, how often did you have a drink containing alcohol: 2-4 times a month Within the past year, how often did you have six or more drinks on one occasion: never Smoking status: Former smoker Non-prescribed substance use: denies use Previous occupational history: disabled Known occupational exposures/hazards: No Highest level of school completed/degree received: don't know Are you now , , , , never or living with a partner: In a typical week, how many times do you talk on the telephone with family, friends, or neighbors: 3 or more times per week Little interest or pleasure in doing things: not at all Feeling down, depressed, or hopeless: not at all Feel stressed/tense/nervous/anxious/difficulty sleeping: rather much Life stressor details: medical condition Exam Narrative Exam Narrative: Nurses note and vital signs reviewed General:The patient appears in no acute distress. Skin:Warm, dry, no pallor noted.There is no rash noted. Head:Normocephalic, atraumatic Eye: Normal conjunctiva, no drainage Ears, Nose, Mouth, and Throat: oral mucosa is moist. Nares patent. Cardiovascular:Regular Rate and Rhythm Respiratory:Patient is in no distress, no accessory muscle use, lungs are clear to auscultation, no wheezing, rales or rhonchi GI:Normal bowel sounds, no tenderness to palpation, no masses appreciated.No rebound, guarding, or rigidity noted. Musculoskeletal: The left leg is not shortened. There is no deformity. She has tenderness in her left hip. Neurological:A&O, normal speech Psychiatric:Cooperative Constitutional Vital Signs, click to edit/add: Last Vital Signs Temp 98.7 F 03/12/25 11:33 Pulse 123 H 03/12/25 14:40 Resp 23 H 03/12/25 14:40 BP 95/78 03/12/25 14:31 Pulse Ox 99 03/12/25 14:40 O2 Del Method Nasal Cannula 03/12/25 13:00 O2 Flow Rate 3 03/12/25 13:00 Course Vital Signs Vital signs: Vital Signs Pulse Oximetry 93 L 03/12/25 11:32 Temperature 98.7 F 03/12/25 11:33 Pulse Rate 123 H 03/12/25 14:40 Respiratory Rate 23 H 03/12/25 14:40 Blood Pressure 95/78 03/12/25 14:31 Pulse Oximetry 99 03/12/25 14:40 Oxygen Delivery Method Nasal Cannula 03/12/25 13:00 Oxygen Delivery Flow Rate 3 03/12/25 13:00 Medical Decision Making MDM Narrative Medical decision making narrative: The patient is found to have sacral and pelvic fractures. No evidence of a hip fracture. I spoke to Dr. Liu here at [facility] who recommends the patient be transferred to [facility] for orthopedics. The patient also appears to have a UTI though she has a chronic indwelling Elaine catheter. Cultures were obtained and she was given IV Rocephin. She is agreeable and stable for transfer. I have spoken to Dr. Nieves who accepts the patient. Differential Diagnosis Differential Diagnosis: Hip fracture, pelvic fracture, contusion Lab Data Lab results reviewed: Yes I reviewed the patient's lab results Labs: Lab Results 03/12/25 03/12/25 Range/Units 11:50 12:45 WBC 7.8 (4.0-11.0) 10^3/uL RBC 3.52 L (4.20-5.40) 10^6/uL Hgb 9.9 L (12.0-16.0) g/dL Hct 30.9 L (36.0-48.0) % MCV 87.8 (81.0-99.0) fL MCH 28.1 (26.7-34.0) pg MCHC 32.0 (29.9-35.2) g/dL RDW 22.9 H (11.0-15.0) % Plt Count 247 (150-450) 10^3/uL MPV 9.4 L (9.5-13.5) fL Neut % (Auto) 64.2 (43.0-75.0) % Lymph % (Auto) 28.4 (20.5-60.0) % [place] % (Auto) 5.5 (1.7-12.0) % Eos % (Auto) 1.0 (0.9-7.0) % Baso % (Auto) 0.5 (0.2-2.0) % Neut # (Auto) 5.0 (1.4-6.5) 10^3/uL Lymph # (Auto) 2.2 (1.2-3.8) 10^3/uL [place] # (Auto) 0.4 (0.3-0.8) 10^3/uL Eos # (Auto) 0.1 (0.0-0.7) 10^3/uL Baso # (Auto) 0.0 (0.0-0.1) 10^3/uL Abs Immat Gran (auto) 0.03 (0.00-0.03) 10^3/uL Imm/Tot Granulo (auto) 0.4 (0.0-0.5) % Sodium 140 (136-145) mmol/L Potassium 3.6 (3.5-5.1) mmol/L Chloride 104 (98-107) mmol/L Carbon Dioxide 25.4 (21.0-32.0) mmol/L Anion Gap 14.2 BUN 5.0 L (7.0-18.0) mg/dL Creatinine 0.56 (0.55-1.02) mg/dL Est GFR ( Amer) >60 (>=60 mL/min/1.73m^2) Est GFR (Non-Af Amer) >60 (>=60 mL/min/1.73m^2) BUN/Creatinine Ratio 8.9 Glucose 94 (74-106) mg/dL Lactate 2.3 H* (0.4-2.0) mmol/L Calcium 8.5 (8.5-10.1) mg/dL Troponin I High Sens 6.7 (4.0-51.3) pg/mL Urine Color Dk. yellow (YELLOW) Urine Clarity Cloudy A (CLEAR) Urine pH 6.0 (5.0-9.0) Ur Specific [place] 1.015 (1.005-1.025) Urine Protein Trace (NEG/TRACE) mg/dL Urine Glucose (UA) Negative (NEGATIVE) mg/dL Urine Ketones Trace A (NEGATIVE) mg/dL Urine Occult Blood Moderate A (NEGATIVE) Urine Nitrite Positive A (NEGATIVE) Urine Bilirubin Small A (NEGATIVE) Urine Urobilinogen 2.0 A (0.2-1.0) EU/dL Ur Leukocyte Esterase Moderate A (NEGATIVE) Urine RBC 0-2 (0-2) #/HPF Urine WBC 50-75 A (NONE SEEN) #/HPF Ur Squamous Epith Cells Rare (NONE/RARE) #/LPF Urine Crystals None seen (None Seen) #/HPF Urine Bacteria Moderate A (NONE SEEN) #/HPF Urine Casts None seen (NONE SEEN) #/LPF Urine Mucus Trace A (NONE SEEN) Ur Culture Indicated? Yes-[facility] [place] Imaging Data Left hip x-ray: Radiologist's impression: ITS Impressions Chest X-Ray 03/12/25 11:43 IMPRESSION: No acute cardiopulmonary pathology. Impression dictated by: Lamonte Szymanski M.D. 03/12/2025 12:41 PM Dictation Location: [email or web address] Electronically authenticated by: [id number] Y Date: 03/12/2025 12:41 Hip X-Ray 03/12/25 11:44 IMPRESSION: There are transversely oriented inward displaced fractures of the left superior-inferior pubic rami. Impression dictated by: Lamonte Szymanski M.D. 03/12/2025 12:43 PM Dictation Location: [email or web address] Electronically authenticated by: [id number] Y Date: 03/12/2025 12:[address] 03/12/25 12:47 IMPRESSION: Minimally displaced transversely oriented fractures are noted in the left superior and inferior pubic rami. There is a minimally displaced fracture of the right side of the symphysis pubis extending into the base of the superior and inferior pubic rami. There is a minimally displaced fracture of the left sacral ala and communicating with the anterior aspect of the left sacroiliac joint. There is a large amount stool within the colon and rectum suggesting constipation and fecal impaction. Impression dictated by: Lamonte Szymanski M.D. 03/12/2025 1:37 PM Dictation [facility] Electron[facility] by: [id number] Y Date: 03/12/2025 13:37 ECG Data Attestation: I personally reviewed and interpreted this ECG as follows: (EKG on my interpretation shows sinus tachycardia with rate of 123) Discharge Plan Discharge Chief Complaint: Extremity Injury, Lower Clinical Impression: Closed pelvic fracture, Sacral fracture, Urinary tract infection Patient Disposition: [facility] Time of Disposition Decision: 14:05 Discharge Location: [facility] Condition: Fair Mode of Transportation: EMS
[2025-03-12 12:00] LABS: Hematocrit 30.9 % (36.0-48.0); Hemoglobin 9.9 g/dL (12.0-16.0); Immature Granulocytes Abs Auto 0.03 10^3/uL (0.00-0.03); Immature Granulocytes Pct Auto 0.4 % (0.0-0.5); Lymphocytes Absolute Auto 2.2 10^3/uL (1.2-3.8); Mean Corpuscular HGB Conc 32.0 g/dL (29.9-35.2); Mean Corpuscular Hemoglobin 28.1 pg (26.7-34.0); Mean Corpuscular Volume 87.8 fL (81.0-99.0); Platelet Count 247 10^3/uL (150-450); Red Blood Count 3.52 10^6/uL (4.20-5.40); White Blood Count 7.8 10^3/uL (4.0-11.0)
[2025-03-12] MEDS: 0.9 % SODIUM CHLORIDE 1,000 ML 1000 ML IV ×2 (12:10→13:52)
[2025-03-12 12:23] LABS: Anion Gap 14.2; Blood Urea Nitrogen 5.0 mg/dL (7.0-18.0); Calcium 8.5 mg/dL (8.5-10.1); Carbon Dioxide 25.4 mmol/L (21.0-32.0); Chloride 104 mmol/L (98-107); Estimated GFR (African America >60 (>=60 mL/min/1.73m^2); Estimated GFR (Non-African Ame >60 (>=60 mL/min/1.73m^2); Glucose 94 mg/dL (74-106); Potassium 3.6 mmol/L (3.5-5.1); Sodium 140 mmol/L (136-145)
[2025-03-12 12:25] LABS: Lactate/Lactic Acid 2.3 mmol/L (0.4-2.0)
--- NOTE | 2025-03-12 12:47 | CT_ITS ---
The [address] [address] Patient Name: RASHID BOOTH MRN: [id number] date: 1970 Sex: F Assigned Patient Location: ER Current Patient Location: ER Accession/Order Number: [id number] Exam Date: 03/12/2025 13:15 Report Date: 03/12/2025 13:37 At the request of: NBA OLIVIA MD Procedure: CT pelvis wo con CT pelvis wo con 03/12/2025 1:20 PM SIGNS AND SYMPTOMS: Fall with left hip pain and weakness TECHNIQUE: Multidetector ct axial images of the abdomen and pelvis were obtained without IV contrast. Multiplanar reformats were performed and reviewed to further define anatomy and possible pathology. CT was performed with one or more of the following dose reduction techniques: Automated exposure control, adjustment of the mA and/or kV according to patient size, or use of iterative reconstruction technique. COMPARISON: None. FINDINGS: Reproductive Organs: No pelvic masses. Ureters: Within normal limits. Bladder: The bladder is decompressed with a Elaine catheter present. Bowel: There is a large amount stool within the colon and rectum suggesting constipation and fecal impaction. There is evidence of prior cholecystectomy in the right lower quadrant. Mesenteric Lymph Nodes: No enlarged mesenteric lymph nodes. Peritoneum: No ascites or free air, no fluid collection. Vessels: Atherosclerotic changes are noted in the abdominal aorta and its branches. Retroperitoneum: Within normal limits. Abdominal Wall: Within normal limits. Bones: Minimally displaced transversely oriented fractures are noted in the left superior and inferior pubic rami. There is a minimally displaced fracture of the right side of the symphysis pubis extending into the base of the superior and inferior pubic rami. There is an accompanying hematoma along the right symphysis pubis fracture. There is a minimally displaced fracture of the left sacral ala and communicating with the anterior aspect of the left sacroiliac joint. The pelvis is otherwise intact. The hips are grossly intact. Postoperative changes are partially visualized in the lower lumbar spine. CT/CT pelvis wo con IMPRESSION: Minimally displaced transversely oriented fractures are noted in the left superior and inferior pubic rami. There is a minimally displaced fracture of the right side of the symphysis pubis extending into the base of the superior and inferior pubic rami. There is a minimally displaced fracture of the left sacral ala and communicating with the anterior aspect of the left sacroiliac joint. There is a large amount stool within the colon and rectum suggesting constipation and fecal impaction. Impression dictated by: Lamonte Szymanski M.D. 03/12/2025 1:37 PM Dictation Location: [place] [address] Electronically authenticated by: [id number] Y Date: 03/12/2025 13:37
[2025-03-12 13:24] LABS: Glucose Urine UA NEGATIVE (NEGATIVE)
[2025-03-12 13:36] LABS: Crystals Seen? None Seen #/HPF (None Seen)
[2025-03-12 13:37] LABS: Cast Seen? NONE SEEN #/LPF (NONE SEEN); Urine Culture Indicated YES-FRMC
[2025-03-12 15:13] LABS: Lactate/Lactic Acid 2.3 mmol/L (0.4-2.0)
[2025-03-12] MEDS: OXYCODONE HCL/ACETAMINOPHEN 5MG/325MG 2 TAB PO (15:46)
[2025-03-13 12:08] LABS: A. calcoaceticus-baumannii Cpx NOT DETECTED (NOT DETECTE); Bacteroides fragilis NOT DETECTED (NOT DETECTE); Candida auris NOT DETECTED (NOT DETECTE); Candida glabrata NOT DETECTED (NOT DETECTE); Enterobacterales NOT DETECTED (NOT DETECTE); Enterococcus faecalis NOT DETECTED (NOT DETECTE); Enterococcus faecium NOT DETECTED (NOT DETECTE); Klebsiella aerogenes NOT DETECTED (NOT DETECTE); Klebsiella pneumoniae group NOT DETECTED (NOT DETECTE); Proteus spp. NOT DETECTED (NOT DETECTE); Salmonella spp. NOT DETECTED (NOT DETECTE); Serratia marcescens NOT DETECTED (NOT DETECTE); Source BLOOD; Staphylococcus lugdunensis NOT DETECTED (NOT DETECTE); Stenotrophomonas maltophilia NOT DETECTED (NOT DETECTE); Streptococcus pyogenes NOT DETECTED (NOT DETECTE); Streptococcus spp. NOT DETECTED (NOT DETECTE)
[2025-03-13 14:51] LABS: mecA/C DETECTED (NOT DETECTE)
[2025-03-13 14:52] LABS: Staphylococcus epidermidis DETECTED (NOT DETECTE); Staphylococcus spp. DETECTED (NOT DETECTE)
== END 2025-03-12 16:55 | disposition short-term general hospital (02) ==
PROVIDERS: Emergency Provider Emergency Medicine; PCP Family Medicine
DX: S32.592A Other specified fracture of left pubis, initial encounter for closed fracture (principal); S32.10XA Unspecified fracture of sacrum, initial encounter for closed fracture; N39.0 Urinary tract infection, site not specified; W19.XXXA Unspecified fall, initial encounter; Z87.891 Personal history of nicotine dependence
CPT/HCPCS: 36415; 71045; 72192; 73502; 80048; 81001; 83605; 84484; 85025; 87040; 87086; 87088; 87150; 87186; 93005; 96365; 99285; J0696